=== PATIENT | male | born 1950 | race Caucasian/White ===

== ENCOUNTER → 2017-09-03 13:03 | Outpatient (CLI) | payer MEDICARE, OTHER, SELFPAY ==
[2017-09-03 14:15] LABS: PSA,Total- Diagnostic 0.42 ng/mL (0.0-4.0)
== END ==
PROVIDERS: Visit Provider Urology
DX: Z85.46 Personal history of malignant neoplasm of prostate (principal)
CPT/HCPCS: 36415; 84153

== ENCOUNTER 2017-09-04 12:57 | Emergency (ER) | payer MEDICARE, OTHER, SELFPAY ==
[2017-09-04 12:57] VITALS: BP 197/87; PULSE 69; RESP 12; TEMP 36.6; O2SAT 98; BMI 30.5
--- NOTE | 2017-09-04 13:49 | ED.VISSUMM ---
- ER Visit Summary Date of Service: 09/04/17 Chief Complaint: [Rash] History of Present Illness: The patient is a 67 M [who presents the emergency department with a diffuse pruritic rash. He was recently self diagnosed with bedbugs. He was having itchy small bites all over his body. He saw multiple bedbugs in his bed. He wrapped up everything and felt like he got rid of it however he continues to have itching and his rash around his ankles and legs back and abdomen have gotten worse. It is worse at night. No fevers or chills. No new medications. He did have some environmental exposures. There is no vesicular component.] Physical Examination: [] Blood pressure 197/87 WN WD NAD PERRL EOMI MMM NECK supple and nontender, no masses RRR no murmur rub or gallop, no peripheral edema, symmetric radial pulses CTAB no respiratory distress ABDOMEN is soft and nontender, normal bowel sounds, no distension, no rebound or guarding SKIN macular papular rash diffusely occasionally in a linear distribution no evidence of cellulitis. It is blanching. There is no purpura or petechia. Alert and Oriented x3, CN II-XII in tact, no motor or sensory deficits, gait normal No lymphadenopathy Test Results: [] Emergency Department Course and Treatment: [Patient was put on prednisone yesterday by his janitor supervisor. I will give him a prescription for permethrin cream. He was given precautions for which to return. I did advise that he take 50 of Benadryl at night to prevent the severe pruritus that he experiences and have a professional come clean his entire house.] Treatment Plan: [] Disposition: [Discharge] Impression: [Dermatitis, bedbugs versus scabies] This note was generated with [employer] dictation software. It may contain incorrect words, spelling, and punctuation that were not noted in review of the chart prior to signing ED Disposition - Plan for ED Patient: Chief Complaint: Itching Referrals: Care Physician,No Primary [Primary Care Provider] -
--- NOTE | 2017-09-04 13:52 | ED.DCSUM_ITS ---
- ER Visit Summary Date of Service: 09/04/17 Chief Complaint: [Rash] History of Present Illness: The patient is a 67 M [who presents the emergency department with a diffuse pruritic rash. He was recently self diagnosed with bedbugs. He was having itchy small bites all over his body. He saw multiple bedbugs in his bed. He wrapped up everything and felt like he got rid of it however he continues to have itching and his rash around his ankles and legs back and abdomen have gotten worse. It is worse at night. No fevers or chills. No new medications. He did have some environmental exposures. There is no vesicular component.] Physical Examination: [] Blood pressure 197/87 WN WD NAD PERRL EOMI MMM NECK supple and nontender, no masses RRR no murmur rub or gallop, no peripheral edema, symmetric radial pulses CTAB no respiratory distress ABDOMEN is soft and nontender, normal bowel sounds, no distension, no rebound or guarding SKIN macular papular rash diffusely occasionally in a linear distribution no evidence of cellulitis. It is blanching. There is no purpura or petechia. Alert and Oriented x3, CN II-XII in tact, no motor or sensory deficits, gait normal No lymphadenopathy Test Results: [] Emergency Department Course and Treatment: [Patient was put on prednisone yesterday by his zipper measurer. I will give him a prescription for permethrin cream. He was given precautions for which to return. I did advise that he take 50 of Benadryl at night to prevent the severe pruritus that he experiences and have a professional come clean his entire house.] Treatment Plan: [] Disposition: [Discharge] Impression: [Dermatitis, bedbugs versus scabies] This note was generated with [employer] dictation software. It may contain incorrect words, spelling, and punctuation that were not noted in review of the chart prior to signing ED Disposition - Plan for ED Patient: Chief Complaint: Itching Referrals: Care Physician,No Primary [Primary Care Provider] -
--- NOTE | 2017-09-04 14:02 | ED.DEP ---
ED Disposition - Plan for ED Patient: Chief Complaint: Itching Instructions: Scabies, ED Bites Bed Bug Prescriptions: Permethrin 5% [Permethrin] 1 packet TP DAILY 7 Days cream..g. Referrals: Eliot Rivera MD [STAFF PHYSICIAN] - 5-7 Days
== END 2017-09-04 14:10 | disposition home or self-care (01) ==
PROVIDERS: Emergency Provider Emergency Medicine
DX: L30.9 Dermatitis, unspecified (principal); Z79.82 Long term (current) use of aspirin; Z79.899 Other long term (current) drug therapy
CPT/HCPCS: 99282

== ENCOUNTER → 2018-03-10 12:13 | Outpatient (CLI) | payer MEDICARE, OTHER, SELFPAY ==
[2018-03-10 11:00] VITALS: BMI 31.6
[2018-03-10 13:13] LABS: AST(SGOT) 21 U/L (15-37); Alanine Aminotransfer ALT/SGPT 27 U/L (16-61); Alkaline Phosphatase 101 U/L (45-117); Bilirubin, Direct 0.21 mg/dL (0.00-0.30); Cholesterol 152 mg/dL (200); Globulin 3.5 g/dL (2.2-4.2); High Density Lipoprotein 57 mg/dL; Protein, Total 7.5 g/dL (6.4-8.2); Triglycerides 79 mg/dL; Very Low Density Lipoprotein 16 mg/dL (5-40)
== END ==
PROVIDERS: Referring Provider Internal Medicine Cardiovascular Disease; Visit Provider Internal Medicine Cardiovascular Disease
DX: E78.5 Hyperlipidemia, unspecified (principal)
CPT/HCPCS: 36415; 80061; 80076

== ENCOUNTER → 2018-03-25 06:40 | Outpatient (CLI) | payer MEDICARE, OTHER, SELFPAY ==
[2018-03-10 11:00] VITALS: BMI 31.6
--- NOTE | 2018-03-25 06:42 | ECHOD_ITS ---
Reason For Study: DYSPNEA/SOB Procedure This was a 2D Doppler, Color Flow transthoracic echocardiogram. The study was technically difficult. Exam performed in department. Left Ventricle Normal LV size. Left ventricular systolic function is normal. The estimated ejection fraction is 60 %. Post operative septal motion. No evidence for diastolic dysfunction. No regional wall motion abnormalities noted. Right Ventricle Normal RV size. Normal systolic function. Atria Normal left atrium. Normal right atrium. No doppler evidence for ASD. Mitral Valve There is mild mitral annular calcification. Extension of the mitral annular calcification onto the posterior mitral valve leaflet. Trivial mitral valve insufficiency. Tricuspid Valve Normal tricuspid valve. Trivial tricuspid valve insufficiency. Right ventricular systolic pressure estimated to be 28 mmHg. Aortic Valve Trisinus/trileaflet aortic valve. Mild focal aortic valve calcification. Pulmonic Valve The pulmonic valve is not well visualized. Trivial pulmonic valve insufficiency. Great Vessels Mildly dilated aortic root. Calcified aortic root. Pericardium/Pleural No pericardial effusion. MMode/2D Measurements & Calculations LVIDd: 5.2 cm IVSd: 1.2 cm Ao root diam: 4.1 cm LVIDs: 3.5 cm LVPWd: 1.4 cm RVDd: 3.5 cm FS: 32.5 % LAV(MOD-bp): 42.8 ml LA A4 area: 14.0 cm2 LA dimension(2D): 4.0 cm LAV(MOD-bp) Indexed: 21.4 ml/m2 LAV(MOD-sp2): 43.5 ml LAV(MOD-sp4): 36.1 ml RA A4 area: 13.5 cm2 Doppler Measurements & Calculations MV E max john: 76.1 cm/sec Lat Peak E' John: 7.4 cm/sec Med Peak E' John: 5.5 cm/sec MV A max john: 104.1 cm/sec E/E' lat: 10.3 E/E' med: 13.9 MV E/A: 0.73 Ao V2 max: 124.4 cm/sec LV V1 max: 112.4 cm/sec TR max john: 249.7 cm/sec Ao max P.2 mmHg LV V1 max P.0 mmHg TR max P.2 mmHg Interpretation Summary The study was technically difficult. Left ventricular systolic function is normal. The estimated ejection fraction is 60 %. Post operative septal motion. There is mild mitral annular calcification. Extension of the mitral annular calcification onto the posterior mitral valve leaflet. Trivial mitral valve insufficiency. Trivial tricuspid valve insufficiency. Mild focal aortic valve calcification. Trivial pulmonic valve insufficiency. Mildly dilated aortic root. Calcified aortic root. Right ventricular systolic pressure estimated to be 28 mmHg. No evidence for diastolic dysfunction. 2D echocardiographic images potentially compatible with an hepatic cyst. Consider further evaluation with right upper quadrant ultrasound if clinically appropriate. Ordering Physician: Orestes Roa Referring Physician: NO PCP Performed By: Maye Jordan, GALINA, RVT
--- NOTE | 2018-03-25 09:10 | STRESSREP ---
Stress Test Report Date: 03/25/2018 Procedure: Exercise tolerance test/imaging study Indications: Shortness of breath/dyspnea; chest discomfort; CAD; status post PCI; status post CABG Consent: Per the patient Procedure: The patient exercised on a Victor Manuel protocol for 10 minutes completing Stage III and 1 minute of Stage IV achieving a peak heart rate of 150 bpm (98 % predicted maximal heart rate) with a peak blood pressure 178/100 mmHg and a peak MET capacity of 11 METs. The baseline ECG demonstrated normal sinus rhythm . The peak exercise ECG demonstrated no obvious ECG changes . There was a rare PVC during recovery . The functional capacity was considered good . There was no complaint of chest discomfort during exercise or recovery. The examination was discontinued secondary to dyspnea . Impression: 1. Technically adequate (percent predicted maximal heart rate greater than 85%) exercise tolerance test 2. Peak exercise ECG with no obvious ECG changes 3. There was a rare PVC during recovery 4. Nuclear images pending Myocardial perfusion imaging study: Technique: The patient was injected with 11.9 mCi of technetium 99m Cardiolite and subsequently rest SPECT Cardiolite nuclear imaging was obtained in the horizontal long, vertical long, and short axis views. The patient exercised on a Victor Manuel protocol for 10 minutes completing Stage 3 and 1 minute of Stage IV achieving a peak heart rate of 150 bpm (98 % predicted maximal heart rate) with a peak blood pressure 178/100 mmHg and a peak MET capacity of 11 METs. The patient was injected with 33.2 mCi of technetium 99m Cardiolite and subsequently stress SPECT Cardiolite nuclear imaging was obtained in the horizontal long, vertical long, and short axis views. A gated Cardiolite study at peak stress was obtained. Interpretation: Rest and stress SPECT Cardiolite nuclear imaging status post realignment, normalization, and attenuation correction, demonstrates the appearance of relative uniform tracer uptake and myocardial perfusion appearing within normal limits. There is end systolic thickening and brightening. The gated Cardiolite study demonstrates myocardial thickening and inward wall motion. The reported LVEF is 70 %. Impression: 1. Rest and stress SPECT Cardiolite nuclear imaging demonstrate relative uniform tracer uptake and myocardial perfusion appearing within normal limits. 2. The gated Cardiolite study reports an LVEF of 70 %. This note was generated with [employer] software. It may contain incorrect words, spelling, and punctuation that were not noted in checking the note before signing.
--- NOTE | 2018-03-25 09:13 | STRESSREP_ITS ---
Stress Test Report Date: 03/25/2018 Procedure: Exercise tolerance test/imaging study Indications: Shortness of breath/dyspnea; chest discomfort; CAD; status post PC I; status post CABG Consent: Per the patient Procedure: The patient exercised on a Victor Manuel protocol for 10 minutes completing Stage III and 1 minute of Stage IV achieving a peak heart rate of 150 bpm (98 % predicted maximal heart rate) with a peak blood pressure 178/100 mmHg and a peak MET capacity of 11 METs. The baseline ECG demonstrated normal sinus rhythm . The peak exercise ECG demon strated no obvious ECG changes . There was a rare PVC during recovery . The functional capacity was considered good . There was no complaint of chest discomfort during exercise or recovery. The examination was discontinued secondary to dyspnea . Impression: 1. Technically adequate (percent predicted maximal heart rate greater than 85%) exercise tolerance test 2. Peak exercise ECG with no obvious ECG changes 3. There was a rare PVC during recovery 4. Nuclear images pending Myocardial perfusion imaging study: Technique: The patient was injected with 11.9 mCi of technetium 99m Cardiolite and subsequently rest SPECT Cardiolite nuclear imaging was obtained in the horizontal long, vertical long, and short axis views. The patient exercised on a Victor Manuel protocol for 10 minutes completing Stage 3 and 1 minute of Stage IV achieving a peak heart rate of 150 bpm (98 % predicted maximal heart rate) with a peak blood pressure 178/100 mmHg and a peak MET capacity of 11 METs. The p atient was injected with 33.2 mCi of technetium 99m Cardiolite and subsequently stress SPECT Cardiolite nuclear imaging was obtained in the horizontal long, vertical long, and short axis views. A gated Cardiolite study at peak stress was obtained. Interpretation: Rest and stress SPECT Cardiolite nuclear imaging status post realignment, normalization, and attenuation correction, demonstrates the appearance of relative uniform tracer uptake and myocardial perfusion appearing within normal limits. There is end systolic thickening and brightening. The gated Cardiolite study demonstrates myocardial thickening and inward wall motion. The reported LVEF is 70 %. Impression: 1. Rest and stress SPECT Cardiolite nuclear imaging demonstrate relative uniform tracer uptake and myocardial perfusion appearing within normal limits. 2. The gated Cardiolite study reports an LVEF of 70 %. This note was generated with [employer] software. It may contain incorrect words, spelling, and punctuation that were not noted in checking the note before signing.
== END ==
PROVIDERS: Referring Provider Internal Medicine Cardiovascular Disease; Visit Provider Internal Medicine Cardiovascular Disease
DX: I25.10 Atherosclerotic heart disease of native coronary artery without angina pectoris (principal); R06.02 Shortness of breath; R06.00 Dyspnea, unspecified; I25.2 Old myocardial infarction; E78.5 Hyperlipidemia, unspecified
CPT/HCPCS: 78452; 93017; 93306; A9500; A4216

== ENCOUNTER → 2018-08-30 | Outpatient (CLI) | payer MEDICARE, OTHER, SELFPAY ==
[2018-03-10 11:00] VITALS: BMI 31.6
[2018-08-30 18:07] LABS: PSA,Total- Diagnostic 0.44 ng/mL (0.0-4.0)
== END | disposition home or self-care (01) ==
LOC: LAB 15:36
PROVIDERS: Referring Provider Urology; Visit Provider Urology
DX: C61 Malignant neoplasm of prostate (principal)
CPT/HCPCS: 36415; 84153

== ENCOUNTER → 2018-09-07 | Outpatient (CLI) | payer MEDICARE, OTHER, SELFPAY ==
[2018-09-07 09:52] VITALS: BMI 31.8
[2018-09-07 11:54] LABS: AST(SGOT) 28 U/L (15-37); Alanine Aminotransfer ALT/SGPT 35 U/L (16-61); Albumin, Serum 3.7 g/dL (3.2-5.0); Alkaline Phosphatase 103 U/L (45-117); Bilirubin, Direct 0.14 mg/dL (0.00-0.30); Cholesterol 148 mg/dL (200); Globulin 3.2 g/dL (2.2-4.2); High Density Lipoprotein 57 mg/dL; Protein, Total 6.9 g/dL (6.4-8.2); Triglycerides 83 mg/dL; Very Low Density Lipoprotein 17 mg/dL (5-40)
== END | disposition home or self-care (01) ==
LOC: LAB 10:41
PROVIDERS: Referring Provider Internal Medicine Cardiovascular Disease; Visit Provider Internal Medicine Cardiovascular Disease
DX: E78.5 Hyperlipidemia, unspecified (principal)
CPT/HCPCS: 36415; 80061; 80076

== ENCOUNTER 2019-04-07 17:47 | Emergency (ER) | payer MEDICARE, OTHER, SELFPAY ==
[2018-09-07 09:52] VITALS: BMI 31.8
[2019-04-07 17:48] VITALS: BP 140/104; PULSE 78; RESP 16; TEMP 36.5; O2SAT 97; BMI 32.1
--- NOTE | 2019-04-07 18:01 | ED.VISSUMM ---
- ER Visit Summary Date of Service: 04/07/19 Chief Complaint: Right lower leg redness and swelling History of Present Illness: The patient is a 69 M who has redness of his right lower leg. He has associated swelling with this. He noticed it a couple of days ago. He states that he has been scratching that area. He denies any history of DVTs in the past. Nothing makes his symptoms better or worse. He denies any fevers. Physical Examination: Right lower leg exam reveals tenderness in the anterior portion but there is no calf tenderness. There is anterior swelling but no fusiform swelling. There is mild erythema noted to the anterior leg as well there are excoriation seen. He has a 2+ DP pulse. Test Results: None performed Emergency Department Course and Treatment: I feel that this is likely cellulitis. He has no calf pain. The swelling is localized to the area of erythema. I do not suspect DVT. I will treat him with Keflex. He will call his primary care physician for follow-up. Treatment Plan: [] Disposition: Discharge Impression: Right lower leg cellulitis This note was generated with [employer] dictation software. It may contain incorrect words, spelling, and punctuation that were not noted in review of the chart prior to signing ED Disposition - Plan for ED Patient: Referrals: Care Physician,No Primary [Primary Care Provider] -
--- NOTE | 2019-04-07 18:03 | ED.DEP ---
ED Disposition - Plan for ED Patient: Disposition: Home or Assisted Living Instructions: Cellulitis Prescriptions: Cephalexin [Keflex] 500 mg PO Q6 #28 cap Transmission Status: Pending to [facility] Referrals: Care Physician,No Primary [Primary Care Provider] - Caitlyn Guidry MD [STAFF PHYSICIAN] -
[2019-04-07 18:04] VITALS: BP 173/98; PULSE 77; RESP 16; O2SAT 96
[2019-04-07] MEDS: Cephalexin 250 MG Capsule 500 MG PO (18:08)
[2019-04-07 18:17] VITALS: BP 173/98; PULSE 77; RESP 16; O2SAT 96
== END 2019-04-07 18:19 | disposition home or self-care (01) ==
PROVIDERS: Emergency Provider Emergency Medicine
DX: L03.115 Cellulitis of right lower limb (principal); I25.10 Atherosclerotic heart disease of native coronary artery without angina pectoris; I25.2 Old myocardial infarction; I10 Essential (primary) hypertension
CPT/HCPCS: 99283

== ENCOUNTER → 2019-07-28 | Outpatient (CLI) | payer MEDICARE, OTHER, SELFPAY ==
[2019-07-21 08:50] VITALS: BMI 32.1
[2019-07-28 10:03] LABS: AST(SGOT) 29 U/L (15-37); Alanine Aminotransfer ALT/SGPT 28 U/L (16-61); Albumin, Serum 3.9 g/dL (3.2-5.0); Alkaline Phosphatase 93 U/L (45-117); Bilirubin, Direct 0.19 mg/dL (0.00-0.30); Cholesterol 118 mg/dL (200); Globulin 3.2 g/dL (2.2-4.2); High Density Lipoprotein 52 mg/dL; Protein, Total 7.1 g/dL (6.4-8.2); Triglycerides 68 mg/dL; Very Low Density Lipoprotein 14 mg/dL (5-40)
== END | disposition home or self-care (01) ==
LOC: LAB 08:20
PROVIDERS: Referring Provider Internal Medicine Cardiovascular Disease; Visit Provider Internal Medicine Cardiovascular Disease
DX: E78.00 Pure hypercholesterolemia, unspecified (principal)
CPT/HCPCS: 36415; 80061; 80076

== ENCOUNTER → 2019-09-15 | Outpatient (CLI) | payer MEDICARE, OTHER, SELFPAY ==
[2019-07-21 08:50] VITALS: BMI 32.1
[2019-09-15 13:12] LABS: PSA,Total- Diagnostic 0.36 ng/mL (0.0-4.0)
== END | disposition home or self-care (01) ==
LOC: LAB 12:14
PROVIDERS: Referring Provider Urology; Visit Provider Urology
DX: C61 Malignant neoplasm of prostate (principal)
CPT/HCPCS: 36415; 84153

== ENCOUNTER → 2020-05-20 09:43 | Outpatient (CLI) | payer MEDICARE, OTHER, SELFPAY ==
[2019-07-21 08:50] VITALS: BMI 32.1
--- NOTE | 2020-05-20 09:50 | CDU_ITS ---
Reason For Study: Dizziness Rt. Velocities/BP Lt. Velocities/BP Prox CCA 89/15 cm/sec. Prox CCA 109/24 cm/sec. Mid CCA 96/15 cm/sec. Mid CCA 100/22 cm/sec. Dist CCA 76/20 cm/sec. Dist CCA 100/22 cm/sec. Prox ICA 86/19 cm/sec. Prox ICA 137/23 cm/sec. Mid ICA 83/20 cm/sec. Mid ICA 77/24 cm/sec. Dist ICA 111/33 cm/sec. Dist ICA 105/40 cm/sec. Rt. ICA/CCA = 1.2. Lt. ICA/CCA = 1.37. Prox ECA 312/26 cm/sec. Prox ECA 183/17 cm/sec. Rt. Vert. 94/17 cm/sec. Right Extracranial There is heterogeneous, irregular atherosclerotic plaque noted in the right common carotid artery. There is heterogeneous, irregular atherosclerotic plaque noted in the right internal carotid artery. There is heterogeneous, irregular atherosclerotic plaque noted in the right external carotid artery. Antegrade flow is noted in the right vertebral artery. Left Extracranial There is heterogeneous, irregular atherosclerotic plaque noted in the left common carotid artery. There is heterogeneous, irregular atherosclerotic plaque noted in the left internal carotid artery. There is heterogeneous, irregular atherosclerotic plaque noted in the left external carotid artery. Bi-directional flow noted Lt Vert A. Procedure Carotid Duplex 43545. Exam performed in department. Interpretation Summary Irregular calcific plaque of the proximal right internal carotid artery with less than 50% stenosis. Greater than 50% stenosis right external carotid artery Irregular calcific plaque in the proximal left internal and external carotid arteries with 50 to 69% stenosis left proximal internal carotid Less than 50% stenosis left external carotid artery Patent and antegrade flow right vertebral Bidirectional flow left vertebral left vertebral suspicious for proximal left subclavian stenosis. Clinical correlation would be appropriate. Ordering Physician: Orestes Roa Referring Physician: Orestes Roa Performed By: Jie Trujillo, GALINA, RVT
== END ==
PROVIDERS: Referring Provider Internal Medicine Cardiovascular Disease; Visit Provider Internal Medicine Cardiovascular Disease
DX: I65.23 Occlusion and stenosis of bilateral carotid arteries (principal); R42 Dizziness and giddiness; I73.9 Peripheral vascular disease, unspecified; I25.10 Atherosclerotic heart disease of native coronary artery without angina pectoris; E78.5 Hyperlipidemia, unspecified
CPT/HCPCS: 93880

== ENCOUNTER → 2020-06-03 14:20 | Outpatient (CLI) | payer MEDICARE, OTHER, SELFPAY ==
[2020-05-29 15:23] VITALS: BMI 33.7
== END ==
PROVIDERS: Referring Provider Otolaryngology; Visit Provider Otolaryngology
DX: U07.1 COVID-19 (principal)
CPT/HCPCS: 87635; C9803; U0002

== ENCOUNTER → 2020-07-16 16:08 | Outpatient (CLI) | payer MEDICARE, OTHER, SELFPAY ==
[2020-05-29 15:23] VITALS: BMI 33.7
--- NOTE | 2020-07-16 16:45 | MRI_ITS ---
STUDY: MRI BRAIN WITH AND WITHOUT CONTRAST (ATTENTION INTERNAL AUDITORY CANALS - I.A.C.''s) REASON FOR EXAM: Male, 70 years old. Sudden hearing loss left ear TECHNIQUE: Standardized multiplanar fat and water weighted pulse sequences were obtained. 18 IV DOTAREM was administered for the contrast portion of the examination. COMPARISON: None. FINDINGS: Normal bilateral temporal bones. There is enhancing left intracanalicular lesion measuring approximately 10.1 x 7.2 mm extending into the cerebellopontine angle cistern consistent with acoustic neuroma.. Normal bilateral cochlea, vestibules and semicircular canals. Mild atrophy and periventricular white matter ischemic changes without mass effect or restricted diffusion.. Normal bilateral basal ganglia. Normal thalami. Normal flow voids within the major intracranial circulation suggesting patency by spin echo criteria. Normal venous enhancement. There is no enhancing intra-axial or extra-axial abnormality. There is no extra-axial fluid accumulation. Normal sella turcica, pituitary gland, infundibular stalk, optic chiasm and hypothalamus. Normal tectal plate and pineal gland. Normal midbrain, shweta and medulla. Normal cerebellum. Normal basal cisterns. No demonstrated orbital abnormality, within the constraints of a routine brain study. Normal visualized paranasal sinuses. Normal calvarium and skull base. Normal visualized soft tissue structures. Normal visualized upper cervical spine. 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
[2020-07-17 11:36] LABS: EGFR FINGERSTICK > 60.0000 mL/min (>60)
== END ==
PROVIDERS: Referring Provider Otolaryngology; Visit Provider Otolaryngology
DX: H91.22 Sudden idiopathic hearing loss, left ear (principal); H93.19 Tinnitus, unspecified ear
CPT/HCPCS: 70553; A9575

== ENCOUNTER 2021-06-09 08:37 | Outpatient (CLI) | payer MEDICARE, OTHER, SELFPAY ==
[2021-06-09 08:54] VITALS: BP 141/72; PULSE 52; RESP 18; TEMP 36.1; O2SAT 97; BMI 30.9
== END 2021-06-09 23:59 | disposition home or self-care (01) ==
PROVIDERS: Referring Provider Internal Medicine Hematology & Oncology; Visit Provider Internal Medicine Hematology & Oncology
DX: C20 Malignant neoplasm of rectum (principal)
CPT/HCPCS: 36569

== ENCOUNTER → 2022-01-16 | Outpatient (CLI) | payer MEDICARE, OTHER, SELFPAY ==
--- NOTE | 2022-01-16 12:59 | ECHOD_ITS ---
Reason For Study: DILATED AORTIC ROOT Procedure This was a 2D Doppler, Color Flow transthoracic echocardiogram. Exam performed in department. Left Ventricle Left ventricular systolic function is normal. The estimated ejection fraction is 65 %. Post operative septal motion. Diastolic function is indeterminate. No regional wall motion abnormalities noted. Right Ventricle Normal RV size. Normal systolic function. Atria The left atrium is mildly enlarged. Normal right atrium. No doppler evidence for ASD. Mitral Valve There is moderate mitral annular calcification. Extension of the mitral annular calcification onto the base of the posterior mitral valve leaflet. Trivial mitral valve insufficiency. Tricuspid Valve Normal tricuspid valve. Mild eccentric tricuspid valve insufficiency. Right ventricular systolic pressure estimated to be 29 mmHg. Aortic Valve Trisinus/trileaflet aortic valve. Mild focal aortic valve calcification. Pulmonic Valve The pulmonic valve is not well visualized. Trivial pulmonic valve insufficiency. Great Vessels Mildly dilated aortic root. Calcified aortic root. Pericardium/Pleural No pericardial effusion. MMode/2D Measurements & Calculations RVDd: 5.1 cm LVOT diam: 2.2 cm Ao root diam: 4.0 cm LVOT area: 3.9 cm2 LAV(MOD-sp4): 57.6 ml SV(MOD-sp4): 52.7 ml LVAd ap4: 28.6 cm2 LVLd ap4: 8.1 cm EDV(MOD-sp4): 80.8 ml EDV(sp4-el): 85.8 ml LVAs ap4: 14.6 cm2 LVLs ap4: 6.3 cm ESV(MOD-sp4): 28.1 ml ESV(sp4-el): 28.6 ml EF(MOD-sp4): 65.2 % EF(sp4-el): 66.7 % SV(sp4-el): 57.2 ml LA A4 area: 19.2 cm2 LA dimension(2D): 4.8 cm RA A4 area: 19.2 cm2 Time Measurements MV dec time: 0.30 sec Doppler Measurements & Calculations MV E max john: 116.9 cm/sec Lat Peak E' John: 6.3 cm/sec Med Peak E' John: 5.4 cm/sec MV A max john: 102.3 cm/sec E/E' lat: 18.7 E/E' med: 21.6 MV E/A: 1.1 MV V2 max: 133.5 cm/sec MV dec slope: 393.1 cm/sec2 Ao V2 max: 129.8 cm/sec MV max P.1 mmHg Ao max P.7 mmHg MV V2 mean: 56.6 cm/sec Ao V2 mean: 89.8 cm/sec MV mean P.9 mmHg Ao mean P.7 mmHg MV V2 VTI: 54.9 cm Ao V2 VTI: 37.8 cm MVA(VTI): 2.2 cm2 DEONTE(I,D): 3.1 cm2 DEONTE(V,D): 3.4 cm2 LV V1 max: 113.5 cm/sec SV(LVOT): 118.6 ml PA V2 max: 90.6 cm/sec LV V1 max P.2 mmHg PA V2 mean: 64.2 cm/sec LV V1 mean P.8 mmHg LV V1 mean: 77.9 cm/sec LV V1 VTI: 30.7 cm TR max john: 256.1 cm/sec TR max P.2 mmHg ECHO/Echo Complete Interpretation Summary Left ventricular systolic function is normal. The estimated ejection fraction is 65 %. Post operative septal motion. The left atrium is mildly enlarged. There is moderate mitral annular calcification. Extension of the mitral annular calcification onto the base of the posterior mi tral valve leaflet. Trivial mitral valve insufficiency. Mild eccentric tricuspid valve insufficiency. Mild focal aortic valve calcification. Trivial pulmonic valve insufficiency. Mildly dilated aortic root. Calcified aortic root. Right ventricular systolic pressure estimated to be 29 mmHg. Diastolic function is indeterminate. 2D echocardiographic images potentially compatible with an hepatic cyst. Consid er further evaluation with right upper quadrant ultrasound if clinically appropriate. Ordering Physician: Bhavna Deutsch Referring Physician: Bhavna Deutsch Performed By: Kamilla Suarez RCS
== END | disposition home or self-care (01) ==
LOC: CVS 12:57
PROVIDERS: PCP Internal Medicine; Referring Provider Physician Assistant Medical; Visit Provider Physician Assistant Medical
DX: I25.10 Atherosclerotic heart disease of native coronary artery without angina pectoris (principal)
CPT/HCPCS: 93306

== ENCOUNTER 2022-02-01 13:44 | Emergency (ER) | payer MEDICARE, OTHER, SELFPAY ==
[2022-02-01] VITALS (13 sets, daily range): BP systolic 46–118; BP diastolic 31–87; PULSE 86–109; RESP 14–94; TEMP 33.7–36.9; O2SAT 92–100; BMI 32.3
--- NOTE | 2022-02-01 13:48 | RAD_ITS ---
INDICATION: fever EXAMINATION/TECHNIQUE: X-RAY - XR Chest 1 View COMPARISON: CT dated of the abdomen and pelvis dated February 01, 2022 FINDINGS: LINES/DEVICES: None. LUNGS: No consolidation, edema or effusion. No pneumothorax. MEDIASTINUM AND CARDIOVASCULAR STRUCTURES: There are sternotomy wires in place. Cardiac silhouette not enlarged. Central airways and mediastinal contour are unremarkable. BONES AND SOFT TISSUES: There is subcutaneous air within the soft tissues lateral to the visualized upper abdomen. RAD/Chest 1 View (Portable) IMPRESSION: No acute cardiopulmonary process. Indeterminate subcutaneous air adjacent to the visualized abdomen, likely secondary to recent surgical intervention. Electronically Signed: Martha Guevara MD at 14:24 EST ,
--- NOTE | 2022-02-01 13:48 | CT_ITS ---
INDICATION: History of rectal cancer with colectomy January 27, 2022. Severe Abdominal pain status post Colostomy EXAMINATION: CT ABDOMEN AND PELVIS WITH CONTRAST - CT Abdomen And Pelvis W/ Contrast Injection TECHNIQUE: Helically acquired images were obtained of the abdomen and pelvis following IV contrast. A radiation dose optimization technique was used for this scan. IV Contrast dosage and agent: 100 cc of Isovue-[id number] Oral contrast: None. COMPARISON: January 08, 2017 FINDINGS: LOWER CHEST: Lung bases are clear. There are coronary artery calcifications. There is intraperitoneal free air. There is free fluid within the right upper quadrant and posterior to the proximal gastric fundus. There are associated high attenuation serpiginous foci within the fluid within the left upper quadrant posterior to the stomach. There is high attenuation fluid within the mesentery left of midline and within the omentum. There is high attenuation free fluid within the pelvis most pronounced left of midline. LIVER: There are stable well circumscribed low attenuation round foci throughout the liver. GALLBLADDER AND BILIARY TREE: No calcified gallstones. No gallbladder distension or wall edema. No intra- or extrahepatic biliary ductal dilation. PANCREAS: No focal cystic or solid mass. SPLEEN: Normal size without focal cystic or solid mass. ADRENAL GLANDS: No nodules. KIDNEYS AND URETERS: Normal renal size and position. No hydronephrosis. BOWEL: No evidence of acute appendicitis. No stomach or bowel distension. There are postsurgical changes within the rectum associated with a colostomy within the right lower quadrant. VESSELS: Aorta is non-dilated. There are peripheral calcifications of the abdominal aorta consistent with atherosclerosis. URINARY BLADDER: Unremarkable. REPRODUCTIVE ORGANS: No pelvic masses. ABDOMINAL WALL: here is extensive subcutaneous air along the lateral abdominal shah and within the anterior and lateral pelvic shah. The subcutaneous air extends into the inguinal region and scrotum. BONES: There are degenerative changes of the lumbar spine. CT/Abdomen/Pelvis W IV Cont ONLY IMPRESSION: Hemoperitoneum with findings consistent with an active bleed within the left upper quadrant posterior to the gastric fundus; cannot entirely exclude a gastric perforation Intraperitoneal free air likely secondary to recent surgical intervention. Ill-defined opacities within the omentum and peritoneum may be secondary to the hemoperitoneum however cannot entirely exclude a neoplastic process. Subcutaneous emphysema throughout the abdomen and pelvis as well as within the scrotum; may be partially secondary to recent surgical intervention however cannot exclude a gas producing organism. Minimal intraperitoneal free air likely secondary to recent surgical intervention. Atherosclerosis. N.B. : The above Results were Read Back by Martha Guevara MD to Eriberto Salazar MD, and understanding confirmed on 02/01/2022 14:50:43 (ET). Electronically Signed: Martha Guevara MD at 14:51 EST ,
--- NOTE | 2022-02-01 13:51 | EDS_ITS ---
HPI <ALTAGRACIA Torres - Last Filed: 02/01/22 15:02> History of Present Illness Chief Complaint: Abd Pain Narrative Narrative: 71-year-old male with history of CAD, hypertension, history of triple bypass, history of rectal cancer who recently received a colostomy 1 week ago at the [facility] presents to the emergency department with severe abdominal pain. Patient was brought in by EMS, patient had poor color, patient was diaphoretic and screaming on pain that his belly is hurting. He denies any nausea or vomiting. Denies any fever or chills. Patient states it is difficult to catch his breath. [facility] <ALTAGRACIA Torres - Last Filed: 02/01/22 15:02> [facility] Medical History (Updated 02/01/22 @ 15:[address] Eriberto Salazar, ) Atherosclerotic heart disease of [place] coronary artery without angina pectoris Bilateral carotid artery stenosis CAD (coronary artery disease) Dilated aortic root Dyslipidemia Essential hypertension GERD (gastroesophageal reflux disease) HTN (hypertension) Hypoacusis Meniere's disease Old myocardial infarction Peripheral vascular disease Premature ventricular contraction Presence of stent in coronary artery (~12/22/16) Subclavian artery stenosis, left 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 Home Medications multivitamin 1 ea PO DAILY vitamin 10/14/16 [History Last Taken Unknown] nitroglycerin 0.4 mg sublingual tablet 0.4 mg sublingual PRN PRN Cardiac/Chest Pain 12/21/16 [History Last Taken Unknown] coenzyme Q10 50 mg capsule 100 mg PO DAILY vitamin 03/04/18 [History Last Taken Unknown] cholecalciferol (vitamin D3) 50 mcg (2,000 unit) capsule 4,000 unit PO DAILY PRN vitamin 07/21/19 [History Last Taken Unknown] lactobacillus combination no.9 4 billion cell capsule (Adult 50 Plus Probiotic) 4,000 mmu cells PO DAILY 07/21/19 [History Last Taken Unknown] atorvastatin 40 mg tablet 40 mg PO DAILY #90 tabs 05/30/21 [Rx Last Taken Unknown] clopidogrel 75 mg tablet 75 mg PO DAILY stents #90 tabs 05/30/21 [Rx Last Taken Unknown] metoprolol tartrate 25 mg tablet 25 mg PO BID heart and BP #180 tabs 05/30/21 [Rx Last Taken Unknown] Allergy/AdvReac Type Severity Reaction Status Date / Time clindamycin Allergy PT UNABLE Verified 01/09/22 10:00 TO RESPOND-NEEDS F/U codeine AdvReac Upset Verified 01/09/22 10:00 Stomach Family History Father CAD (coronary artery disease) Myocardial infarction, Onset Age: 45 Mother Carotid artery stenosis Surgical History History of tonsillectomy History of transurethral resection of prostate (~09/2016) Presence of coronary angioplasty implant and graft (~12/22/16) S/P CABG (coronary artery bypass graft) (~09/16/98) S/P PTCA (percutaneous transluminal coronary angioplasty) (~12/22/16) Social History Smoking Status: Former smoker how long ago did patient quit smokin alcohol intake: current details: occasional ROS <ALTAGRACIA Torres - Last Filed: 02/01/22 15:02> ROS ED ROS Narrative Constitutional: Negative for fever, chills, weight loss, weakness Eyes: Negative for vision loss, vision change, double vision ENT: Negative for any sore throat, ear pain, congestion Cardiovascular: Negative for any chest pain, tightness, palpitations Respiratory: Negative for any cough, sputum production, hemoptysis, dyspnea on exertion, orthopnea. Positive for dyspnea Gastrointestinal: Negative for any nausea, vomiting, diarrhea, constipation, blood in stool, blood in vomit. Positive for severe abdominal pain : Negative for any urinary frequency, dysuria, retention, blood in urine Muscle skeletal: Negative for any muscle joint pain, stiffness, myalgias, arthralgias, neck pain, back pain Neurological: Negative for any headache, syncope, numbness or tingling, dizziness Skin: Negative for any rashes, lumps, itching, abrasions, lacerations Psychiatric: Negative for any depression, anxiety, stress, suicidal ideation, homicidal ideation Hematologic: Negative for any easy bruising, excessive bruising, easy bleeding Allergies: Negative for any eczema, hives, rash EXAM <ALTAGRACIA Torres - Last Filed: 02/01/22 15:02> Physical Exam Narrative Exam Narrative: Vital signs reviewed. Patient on initial exam looks ill. Patient has poor color, patient has mottling to his lower extremities. Patient is diaphoretic, cool to the touch. Patient is alert and orient x4, stating he has severe abdominal pain. HEET: Head normocephalic atraumatic, TMs clear bilaterally. Posterior pharynx is clear, dry mucous membranes. Nares clear bilaterally. Neck: Supple with no lymphadenopathy or tenderness. No signs of meningismus, negative jolt sign. Cardiac: Tachycardic rate with a systolic murmur, no gallops or rubs, equal peripheral pulses bilaterally. Respiratory: Lungs clear to auscultation bilaterally. No chest tenderness. Abdomen: . No abdominal bruit or pulsatile masses. No hepatosplenomegaly. Patient does have a colostomy that is draining dark stool, patient's belly is distended, firm, there is crepitus felt upon palpation. Difficult to assess bowel sounds. Extremities: No peripheral edema, no signs of gross trauma or deformity. Active full range of motion of all extremities. Neuro: Cranial nerves II through XII intact, no focal neurological deficits. Skin: Clean dry and intact with no rash, purpura, petechiae, vesicles or pustules. Backs/flank: No CVA tenderness, no midline spinal tenderness, no deformity. Psych: Normal mood and affect. No SI, HI or acute psychosis. Const Vital Signs: 02/01/22 13:45 02/01/22 14:12 02/01/22 14:12 Temperature 92.7 F L 98.2 F Temperature Source Temporal Core Pulse Rate 109 H 93 106 H Respiratory Rate 24 H 16 14 Blood Pressure 115/87 H 88/73 L 81/50 L Blood Pressure Mean 96 78 60 Pulse Ox 100 94 98 Oxygen Delivery Method Nasal Cannula Nasal Cannula Nasal Cannula Oxygen Flow Rate (L/min) 3 2 2 02/01/22 14:38 02/01/22 15:01 02/01/22 15:15 Temperature 98.4 F 98.0 F 97.6 F L Temperature Source Core Core Core Pulse Rate 95 95 99 Respiratory Rate 29 H 94 H 18 Blood Pressure 77/55 L 110/80 89/62 L Blood Pressure Mean 62 90 71 Pulse Ox 94 94 94 Oxygen Delivery Method Nasal Cannula Nasal Cannula Nasal Cannula Oxygen Flow Rate (L/min) 2 2 2 <Dr. Eriberto Salazar DO - Last Filed: 02/01/22 15:18> Physical Exam Const Vital Signs: 02/01/22 13:45 02/01/22 14:12 02/01/22 14:12 Temperature 92.7 F L 98.2 F Temperature Source Temporal Core Pulse Rate 109 H 93 106 H Respiratory Rate 24 H 16 14 Blood Pressure 115/87 H 88/73 L 81/50 L Blood Pressure Mean 96 78 60 Pulse Ox 100 94 98 Oxygen Delivery Method Nasal Cannula Nasal Cannula Nasal Cannula Oxygen Flow Rate (L/min) 3 2 2 02/01/22 14:38 02/01/22 15:01 02/01/22 15:15 Temperature 98.4 F 98.0 F 97.6 F L Temperature Source Core Core Core Pulse Rate 95 95 99 Respiratory Rate 29 H 94 H 18 Blood Pressure 77/55 L 110/80 89/62 L Blood Pressure Mean 62 90 71 Pulse Ox 94 94 94 Oxygen Delivery Method Nasal Cannula Nasal Cannula Nasal Cannula Oxygen Flow Rate (L/min) 2 2 2 MDM <ALTAGRACIA Torres - Last Filed: 02/01/22 15:02> [facility] Lab Data Labs: Laboratory Results - last 24 hr 02/01/22 02/01/22 02/01/22 12:13 12:13 12:13 WBC 11.1 H RBC 3.26 L Hgb 10.6 L Hct 32.9 L MCV 100.9 H MCH 32.5 H MCHC 32.2 RDW Std Deviation 47.9 H RDW Coeff of [place] 12.9 Plt Count 220 MPV 10.4 Immature Gran % (Auto) 4.200 H Neut % (Auto) 53.2 Lymph % (Auto) 29.1 [place] % (Auto) 9.7 Eos % (Auto) 3.3 Baso % (Auto) 0.5 Absolute Neuts (auto) 5.9 Absolute Lymphs (auto) 3.22 Nucleated RBC % 0 PT 15.9 H INR 1.3 APTT 23.8 L Sodium 136 Potassium 3.4 L Chloride 104 Carbon Dioxide 18.0 L Anion Gap 14 BUN 24 H Creatinine 1.75 H Estim Creat Clear Calc 34.94 Est GFR (MDRD) Af Amer 50 L Est GFR (MDRD) Non-Af 41 L BUN/Creatinine Ratio 13.7 Glucose 261 H Lactic Acid Calcium 7.8 L Total Bilirubin 0.70 Direct Bilirubin 0.17 AST 17 ALT 20 Alkaline Phosphatase 58 Troponin I High Sens 10 Total Protein 5.4 L Albumin 2.4 L Globulin 3.0 Lipase 116 Urine Color Urine Clarity Urine pH Ur Specific [place] Urine Protein Urine Glucose (UA) Urine Ketones Urine Occult Blood Urine Nitrite Urine Bilirubin Urine Urobilinogen Ur Leukocyte Esterase Urine RBC Urine WBC Ur Squamous Epith Cells Urine Bacteria Urine Mucus 02/01/22 02/01/22 12:13 14:28 WBC RBC Hgb Hct MCV MCH MCHC RDW Std Deviation RDW Coeff of [place] Plt Count MPV Immature Gran % (Auto) Neut % (Auto) Lymph % (Auto) [place] % (Auto) Eos % (Auto) Baso % (Auto) Absolute Neuts (auto) Absolute Lymphs (auto) Nucleated RBC % PT INR APTT Sodium Potassium Chloride Carbon Dioxide Anion Gap BUN Creatinine Estim Creat Clear Calc Est GFR (MDRD) Af Amer Est GFR (MDRD) Non-Af BUN/Creatinine Ratio Glucose Lactic Acid 8.7 H* Calcium Total Bilirubin Direct Bilirubin AST ALT Alkaline Phosphatase Troponin I High Sens Total Protein Albumin Globulin Lipase Urine Color Yellow Urine Clarity Clear Urine pH 5.0 Ur Specific [place] 1.025 Urine Protein 15 H Urine Glucose (UA) Normal Urine Ketones Negative Urine Occult Blood Negative Urine Nitrite Negative Urine Bilirubin Negative Urine Urobilinogen Normal Ur Leukocyte Esterase Negative Urine RBC 0 SEEN Urine WBC 0 SEEN Ur Squamous Epith Cells 0 SEEN Urine Bacteria 0 SEEN Urine Mucus 0 SEEN Radiography Diagnostic Testing: Clinical Impression(s) from Imaging Studies Abdomen/Pelvis CT 02/01/22 13:48 IMPRESSION: Hemoperitoneum with findings consistent with an active bleed within the left upper quadrant posterior to the gastric fundus; cannot entirely exclude a gastric perforation Intraperitoneal free air likely secondary to recent surgical intervention. Ill-defined opacities within the omentum and peritoneum may be secondary to the hemoperitoneum however cannot entirely exclude a neoplastic process. Subcutaneous emphysema throughout the abdomen and pelvis as well as within the scrotum; may be partially secondary to recent surgical intervention however cannot exclude a gas producing organism. Minimal intraperitoneal free air likely secondary to recent surgical intervention. Atherosclerosis. N.B. : The above Results were Read Back by Martha Guevara MD to Eriberto Salazar MD, and understanding confirmed on 02/01/2022 14:50:43 (ET). Electronically Signed: Martha Guevara MD at 14:51 EST , ADDENDUM: 02/01/22 1458 IMPRESSION: Hemoperitoneum with findings consistent with an active bleed within the left upper quadrant posterior to the gastric fundus; cannot entirely exclude a gastric perforation Intraperitoneal free air likely secondary to recent surgical intervention. Ill-defined opacities within the omentum and peritoneum may be secondary to the hemoperitoneum however cannot entirely exclude a neoplastic process. Subcutaneous emphysema throughout the abdomen and pelvis as well as within the scrotum; may be partially secondary to recent surgical intervention however cannot exclude a gas producing organism. Minimal intraperitoneal free air likely secondary to recent surgical intervention. Atherosclerosis. N.B. : The above Results were Read Back by Martha Guevara MD to Eriberto Salazar MD, and understanding confirmed on 02/01/2022 14:50:43 (ET). Electronically Signed: Martha Guevara MD at 14:51 EST , Chest X-Ray 02/01/22 13:48 IMPRESSION: No acute cardiopulmonary process. Indeterminate subcutaneous air adjacent to the visualized abdomen, likely secondary to recent surgical intervention. Electronically Signed: Martha Guevara MD at 14:24 EST , Treatment and Re-Evaluation Narrative: Patient appears toxic, significantly ill, patient received a septic work-up. Initial work-up was concerning for air in his abdomen secondary to recent colostomy. Patient was given fluids, pain medicine, meropenem antibiotic. Patient CBC showed a hemoglobin of 10.6, slight leukocytosis with a white blood count 11.1. Patient's chemistries show slight renal dysfunction with a creatinine of 1.7, patient's lactic acid was elevated 8.7, patient was given IV fluids, meropenem. Patient's chest x-ray was unremarkable, patient's COVID was negative. Patient did receive a CT scan of the abdomen pelvis, this was interpreted by the radiologist and given to ER attending. It showed that there was hemoperitoneum with findings are consistent with active bleed within the left upper quadrant posterior to the gastric fundus, cannot entirely exclude a gastric perforation. Intraperitoneal free air is likely secondary to recent surgical invention. Ill-defined opacities within the omentum and peritoneum may be secondary to hemoperitoneum however cannot entirely exclude a neoplastic process. Subcutaneous emphysema throughout the abdomen and pelvis as well as within the scrotum may be partially secondary recent surgical invention however cannot exclude gas producing organism. This was relayed to [facility]. Patient will be transferred there for further intervention, critical care transport will be established. <Dr. Eriberto Salazar, DO - Last Filed: 02/01/22 15:18> [facility] Lab Data Attestation: I reviewed the patient's lab results. Labs: Laboratory Results - last 24 hr 02/01/22 02/01/22 02/01/22 12:13 12:13 12:13 WBC 11.1 H RBC 3.26 L Hgb 10.6 L Hct 32.9 L MCV 100.9 H MCH 32.5 H MCHC 32.2 RDW Std Deviation 47.9 H RDW Coeff of [place] 12.9 Plt Count 220 MPV 10.4 Immature Gran % (Auto) 4.200 H Neut % (Auto) 53.2 Lymph % (Auto) 29.1 [place] % (Auto) 9.7 Eos % (Auto) 3.3 Baso % (Auto) 0.5 Absolute Neuts (auto) 5.9 Absolute Lymphs (auto) 3.22 Nucleated RBC % 0 PT 15.9 H INR 1.3 APTT 23.8 L Sodium 136 Potassium 3.4 L Chloride 104 Carbon Dioxide 18.0 L Anion Gap 14 BUN 24 H Creatinine 1.75 H Estim Creat Clear Calc 34.94 Est GFR (MDRD) Af Amer 50 L Est GFR (MDRD) Non-Af 41 L BUN/Creatinine Ratio 13.7 Glucose 261 H Lactic Acid Calcium 7.8 L Total Bilirubin 0.70 Direct Bilirubin 0.17 AST 17 ALT 20 Alkaline Phosphatase 58 Troponin I High Sens 10 Total Protein 5.4 L Albumin 2.4 L Globulin 3.0 Lipase 116 Urine Color Urine Clarity Urine pH Ur Specific [place] Urine Protein Urine Glucose (UA) Urine Ketones Urine Occult Blood Urine Nitrite Urine Bilirubin Urine Urobilinogen Ur Leukocyte Esterase Urine RBC Urine WBC Ur Squamous Epith Cells Urine Bacteria Urine Mucus 02/01/22 02/01/22 12:13 14:28 WBC RBC Hgb Hct MCV MCH MCHC RDW Std Deviation RDW Coeff of [place] Plt Count MPV Immature Gran % (Auto) Neut % (Auto) Lymph % (Auto) [place] % (Auto) Eos % (Auto) Baso % (Auto) Absolute Neuts (auto) Absolute Lymphs (auto) Nucleated RBC % PT INR APTT Sodium Potassium Chloride Carbon Dioxide Anion Gap BUN Creatinine Estim Creat Clear Calc Est GFR (MDRD) Af Amer Est GFR (MDRD) Non-Af BUN/Creatinine Ratio Glucose Lactic Acid 8.7 H* Calcium Total Bilirubin Direct Bilirubin AST ALT Alkaline Phosphatase Troponin I High Sens Total Protein Albumin Globulin Lipase Urine Color Yellow Urine Clarity Clear Urine pH 5.0 Ur Specific [place] 1.025 Urine Protein 15 H Urine Glucose (UA) Normal Urine Ketones Negative Urine Occult Blood Negative Urine Nitrite Negative Urine Bilirubin Negative Urine Urobilinogen Normal Ur Leukocyte Esterase Negative Urine RBC 0 SEEN Urine WBC 0 SEEN Ur Squamous Epith Cells 0 SEEN Urine Bacteria 0 SEEN Urine Mucus 0 SEEN Radiography Diagnostic Testing: Clinical Impression(s) from Imaging Studies Abdomen/Pelvis CT 02/01/22 13:48 IMPRESSION: Hemoperitoneum with findings consistent with an active bleed within the left upper quadrant posterior to the gastric fundus; cannot entirely exclude a gastric perforation Intraperitoneal free air likely secondary to recent surgical intervention. Ill-defined opacities within the omentum and peritoneum may be secondary to the hemoperitoneum however cannot entirely exclude a neoplastic process. Subcutaneous emphysema throughout the abdomen and pelvis as well as within the scrotum; may be partially secondary to recent surgical intervention however cannot exclude a gas producing organism. Minimal intraperitoneal free air likely secondary to recent surgical intervention. Atherosclerosis. N.B. : The above Results were Read Back by Martha Guevara MD to Eriberto Salazar MD, and understanding confirmed on 02/01/2022 14:50:43 (ET). Electronically Signed: Martha Guevara MD at 14:51 EST Reading Location ID and State: [facility] / [place] Tel , Service support , ADDENDUM: 02/01/22 5438 IMPRESSION: Hemoperitoneum with findings consistent with an active bleed within the left upper quadrant posterior to the gastric fundus; cannot entirely exclude a gastric perforation Intraperitoneal free air likely secondary to recent surgical intervention. Ill-defined opacities within the omentum and peritoneum may be secondary to the hemoperitoneum however cannot entirely exclude a neoplastic process. Subcutaneous emphysema throughout the abdomen and pelvis as well as within the scrotum; may be partially secondary to recent surgical intervention however cannot exclude a gas producing organism. Minimal intraperitoneal free air likely secondary to recent surgical intervention. Atherosclerosis. N.B. : The above Results were Read Back by Martha Guevara MD to Eriberto Salazar MD, and understanding confirmed on 02/01/2022 14:50:43 (ET). Electronically Signed: Martha Guevara MD at 14:51 EST , Chest X-Ray 02/01/22 13:48 IMPRESSION: No acute cardiopulmonary process. Indeterminate subcutaneous air adjacent to the visualized abdomen, likely secondary to recent surgical intervention. Electronically Signed: Martha Guevara MD at 14:24 EST , Treatment and Re-Evaluation Narrative: Patient appears toxic, significantly ill, patient received a septic work-up. Initial work-up was concerning for air in his abdomen secondary to recent colostomy. Patient was given fluids, pain medicine, meropenem antibiotic. Patient CBC showed a hemoglobin of 10.6, slight leukocytosis with a white blood count 11.1. Patient's chemistries show slight renal dysfunction with a creatinine of 1.7, patient's lactic acid was elevated 8.7, patient was given IV fluids, meropenem. My interpretation of the chest x-ray is no acute process. Patient's COVID was negative. Patient did receive a CT scan of the abdomen pelvis, this was interpreted by the radiologist and given to ER attending. It showed that there was hemoperitoneum with findings are consistent with active bleed within the left upper quadrant posterior to the gastric fundus, cannot entirely exclude a gastric perforation. Intraperitoneal free air is likely secondary to recent surgical invention. Ill-defined opacities within the omentum and peritoneum may be secondary to hemoperitoneum however cannot entirely exclude a neoplastic process. Subcutaneous emphysema throughout the abdomen and pelvis as well as within the scrotum may be partially secondary recent surgical invention however cannot exclude gas producing organism. This was relayed to [facility]. Patient will be transferred there for further intervention, critical care transport will be established. I performed a history and physical examination of the patient and discussed management plan with the PLATFORM CONSULTANT. I reviewed the CNPs note and agree with the documented findings and plan of care. Patient is about 1 week postop from a colostomy due to rectal cancer. States that last night around 1 AM he felt something pop in his stomach. He had severe pain since. He is got subcutaneous air in the abdominal wall tissues and he appears somewhat distended. He has diffuse tenderness to palpation. CT is concerning for perforated stomach as there is some active bleeding and hemoperitoneum behind the stomach. There is significant more air than this is expected to be from the postop stage. He received IV fluids his lactic acid is 8.7. He also received meropenem. The patient did receive a milligram of Dilaudid and acutely became hypotensive but this rebounded with simple IV fluids and time. I spoke with [facility] and he will be transferred there Eriberto Salazar DO, [place] Discharge Plan Triage Chief Complaint: Abd Pain Other Complaint: Fever ED Midlevel Provider: Orestes Fields ED Provider: Eriberto Salazar Dx/Rx/DC Orders Clinical Impression: Pneumoperitoneum, Hemoperitoneum, Abdominal pain, acute, Elevated lactic acid level, Acute hypotension Prescriptions: No Action Adult 50 Plus Probiotic 4 billion cell capsule 4,000 mmu cells PO DAILY Rx Instructions: administer with a meal coenzyme Q10 50 mg capsule 100 mg PO DAILY Label Comments: SUPPLIMENT multivitamin 1 EACH tablet 1 ea PO DAILY cholecalciferol (vitamin D3) 50 mcg (2,000 unit) capsule 4,000 unit PO DAILY PRN (Reason: vitamin) nitroglycerin 0.4 MG tablet, sublingual 0.4 mg SL PRN PRN (Reason: Cardiac/Chest Pain) atorvastatin 40 mg tablet 40 mg PO DAILY Qty: 90 3RF clopidogrel 75 mg tablet 75 mg PO DAILY Qty: 90 3RF metoprolol tartrate 25 mg tablet 25 mg PO BID Qty: 180 3RF Primary Care Provider: Meme Keith Referrals: Meme Keith MD [Primary Care Provider] - Disposition Disposition: Acute Care Hospital Discharge Location: [facility]
[2022-02-01] MEDS: HYDROmorphone 1 MG/ML Syringe IV (13:52)
[2022-02-01] MEDS: Ondansetron 4 MG/2 ML Vial IV (13:52)
[2022-02-01] MEDS: 0.9% Normal Saline 1,000 ML 1000 ML IV ×3 (13:52→15:13)
[2022-02-01 14:31] LABS: International Normalized Ratio 1.3; Prothrombin Time (Protime)PT. 15.9 SECONDS (11.7-14.9)
[2022-02-01 14:32] LABS: Bacteria 0 SEEN /hpf (None Seen); Mucous, Urine 0 SEEN /hpf (<or=2+); Red Blood Cells-Urine 0 SEEN /hpf (0-5); Squamous Epithelial Cells - UA 0 SEEN /hpf (0-5); White Blood Cells 0 SEEN /hpf (0-5)
[2022-02-01 14:32] LABS: Partial Thromboplast Time 23.8 Seconds (24.1-36.2)
[2022-02-01 14:35] LABS: Absolute Lymphocyte Count 3.22 X10^3/uL (0.83-4.51); Absolute Neutrophil Count 5.9 X10^3/uL (2.0-7.7); Basophil# 0.05 X10^3/uL; Basophil% 0.5 % (0-1); Eosinophil# 0.36 X10^3/uL; Eosinophils% 3.3 % (0-5); Hematocrit 32.9 % (40-54); Hemoglobin 10.6 g/dL (13.0-16.5); Lymphocyte # 3.22 X10^3/ul (0.83-4.51); Lymphocyte % 29.1 % (19-41); Mean Corp Hgb Conc 32.2 g/dL (32-36); Mean Corpuscular Hgb 32.5 pg (27.0-32.0); Mean Corpuscular Volume 100.9 fL (80-94); Mean Platelet Vol. 10.4 fl (6.2-12.0); Monocyte# 1.07 X10^3/uL; Monocyte% 9.7 % (0-10); NRBC Flagged by Analyzer 0 % (0-5); Neutrophil # 5.89 X10^3/uL (2.7-7.7); Neutrophil % 53.2 % (47-70); Platelet Count 220 K/mm3 (150-450); RBC Distribution Width CV 12.9 % (11.6-14.6); RBC Distribution Width SD 47.9 fl (35.1-43.9); Red Blood Count 3.26 M/mm3 (4.6-6.2); White Blood Count 11.1 K/mm3 (4.4-11.0)
[2022-02-01] MEDS: 0.9% Normal Saline 1,000 ML 250 ML IV (14:37)
[2022-02-01 14:39] LABS: Color, Urine Yellow (Yellow); Glucose, Dipstick Normal (Normal); Ketone-Dipstick Negative (Negative); Leukocyte Esterase-Dipstick Negative /ul (Negative); Nitrite-Dipstick Negative (Negative); Occult Blood-Urine Negative /ul (Negative); Protein-Dipstick 15 mg/dl (Negative); Specific Gravity, Urine 1.025 (1.002-1.030); Urine Bilirubin Dipstick Negative (Negative); Urine Clarity Clear (Clear); Urine Urobilinogen Normal (Normal)
[2022-02-01 14:49] LABS: Lactic Acid 8.7 mmol/L (0.4-1.9)
[2022-02-01 14:51] LABS: AST(SGOT) 17 U/L (15-37); Alanine Aminotransfer ALT/SGPT 20 U/L (16-61); Albumin, Serum 2.4 g/dL (3.2-5.0); Alkaline Phosphatase 58 U/L (45-117); Anion Gap 14 (5-15); BUN 24 mg/dL (7-18); BUN/Creat Ratio 13.7 RATIO (10-20); Bilirubin, Direct 0.17 mg/dL (0.00-0.30); Calcium,Total 7.8 mg/dL (8.5-10.1); Chloride 104 mmol/L (98-107); Creatinine, Serum 1.75 mg/dL (0.70-1.30); EST Glomerular Filtration Rate 41 mL/min (>60); Est Glom Filt Rate - Afr Amer 50 mL/min (>60); Estimated Creatinine Clearance 34.94 ml/min; Glucose 261 mg/dL (74-106); Lipase 116 U/L (73-393); Potassium 3.4 mmol/L (3.5-5.1); Protein, Total 5.4 g/dL (6.4-8.2); Sodium Level 136 mmol/L (136-145); Troponin-I HS 10 pg/mL (3.0-78.0)
--- NOTE | 2022-02-01 15:08 | NURSING ---
FAXED FACESHEET TO [facility]
--- NOTE | 2022-02-01 16:05 | NURSING ---
[facility] AIR ETA IS 20 MIN
--- NOTE | 2022-02-01 16:05 | NURSING ---
[facility] G54 BED 7 NURSE TO NURSE [phone] ORTIZ
--- NOTE | 2022-02-01 16:16 | ED.RN ---
RAMBO GAVE VERBAL CONSENT FOR BLOOD GIVE HIM WHAT HE NEEDS
--- NOTE | 2022-02-01 16:19 | ED.RN ---
PT. HYPOTENSIVE, C/O SEVERE BACK PAIN, DR. SHIRLEY NOTIFIED AND HE ORDERED TRAUMA BLOOD. MED FLIGHT ETA 4:25
--- NOTE | 2022-02-01 16:21 | ED.RN ---
HANGING 2 UNITS OF TRAUMA BLOOD. UNIT NUMBERS [id number] AND [id number]
--- NOTE | 2022-02-01 17:02 | ED.RN ---
report given to Rose at [facility]
[2022-02-01 18:22] LABS: Reflex Lactate? Y
== END 2022-02-01 17:03 | disposition short-term general hospital (02) ==
PROVIDERS: Emergency Provider Emergency Medicine; PCP Internal Medicine; Visit Provider Emergency Medicine
DX: R10.9 Unspecified abdominal pain (principal); I25.10 Atherosclerotic heart disease of native coronary artery without angina pectoris; R50.9 Fever, unspecified; K66.1 Hemoperitoneum; I95.9 Hypotension, unspecified; I10 Essential (primary) hypertension; Z87.891 Personal history of nicotine dependence; R74.02 Elevation of levels of lactic acid dehydrogenase [LDH]; E78.5 Hyperlipidemia, unspecified; Z20.822 Contact with and (suspected) exposure to COVID-19
CPT/HCPCS: 36430; 51702; 71045; 74177; 80048; 80076; 81001; 83605; 83690; 84484; 85025; 85610; 85730; 86850; 86900; 86901; 86920; 87040; 87426; 96361; 96365; 96374; 96375; 99285; J2185; J7030; J7040; P9016; Q9967; A4216; J2405; J3490

== ENCOUNTER 2022-02-27 04:00 | Emergency (ER) | payer MEDICARE, OTHER, SELFPAY ==
[2022-02-27 04:02] VITALS: BP 133/82; PULSE 83; RESP 18; TEMP 36; O2SAT 94; BMI 29.6
--- NOTE | 2022-02-27 04:15 | ED.VIS.GI ---
HPI HPI - GI History of Present Illness Chief Complaint: GI Bleed Narrative Narrative: 72-year-old male past medical history of rectal carcinoma states that he had surgery back in December, approximately 1 month ago at the [facility] for diverting ileostomy. He was doing well, and suddenly had a blood vessel that had burst on February 01 from his spleen to his stomach. He was here at [facility] and life flighted to [facility]. He states its been an ordeal since then and he has been recovering and was released from the hospital/[facility] 2 days ago. He was under the service of Dr. Riley. He became concerned and called EMS this evening because approximately 40 to 45 minutes ago he got up from the recliner and felt something wet. He went to the bathroom and noticed blood coming from his rectum that went down his leg. He denies any blood in his ostomy bag. No lightheadedness, no other symptoms. He does not take blood thinners except for an aspirin. He does not understand how he had rectal bleeding if he has a diverting ostomy. [facility] Medical History (Updated 02/27/22 @ 05:32 by Geovanny Villafana MD) Atherosclerotic heart disease of [place] coronary artery without angina pectoris Bilateral carotid artery stenosis CAD (coronary artery disease) Dilated aortic root Dyslipidemia Essential hypertension Gastric artery aneurysm GERD (gastroesophageal reflux disease) HTN (hypertension) Hypoacusis Ileostomy present Intra abdominal hemorrhage Meniere's disease Old myocardial infarction Peripheral vascular disease Premature ventricular contraction Presence of stent in coronary artery (~12/22/16) Pulmonary embolism Rectal cancer Subclavian artery stenosis, left 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 Home Medications coenzyme Q10 50 mg capsule 100 mg PO DAILY vitamin 03/04/18 [History Last Taken Unknown] cholecalciferol (vitamin D3) 50 mcg (2,000 unit) capsule 4,000 unit PO DAILY PRN vitamin 07/21/19 [History Last Taken Unknown] atorvastatin 40 mg tablet 40 mg PO DAILY #90 tabs 05/30/21 [Rx Last Taken Unknown] metoprolol tartrate 25 mg tablet 25 mg PO BID heart and BP #180 tabs 05/30/21 [Rx Last Taken Unknown] acetaminophen 500 mg tablet 1,000 mg PO Q6H PRN Pain 02/26/22 [History Last Taken Unknown] tamsulosin 0.4 mg capsule 0.4 mg PO DAILY 02/26/22 [History Last Taken Unknown] aspirin 81 mg tablet,delayed release mg 02/27/22 [History Last Taken Unknown] Allergy/AdvReac Type Severity Reaction Status Date / Time clindamycin Allergy PT UNABLE Verified 02/27/22 04:04 TO RESPOND-NEEDS F/U cat dander [cats] AdvReac PT UNSURE Verified 02/27/22 04:04 OF REACTION codeine AdvReac Upset Verified 02/27/22 04:04 Stomach Family History Father CAD (coronary artery disease) Myocardial infarction, Onset Age: 45 Mother Carotid artery stenosis Surgical History History of tonsillectomy History of transurethral resection of prostate (~09/2016) Presence of coronary angioplasty implant and graft (~12/22/16) S/P CABG (coronary artery bypass graft) (~09/16/98) S/P PTCA (percutaneous transluminal coronary angioplasty) (~12/22/16) Social History Smoking Status: Former smoker how long ago did patient quit smokin alcohol intake: current details: occasional ROS ROS ED ROS Narrative Constitutional: No fever, no chills. HEENT: No sore throat. No neck pain. No loss of vision. No rhinorrhea. Cardiovascular: No chest pain. No palpitations. No pedal edema. Respiratory: No cough, no shortness of breath. Abdominal: No abdominal pain. No nausea. No vomiting. Positive blood from rectum. Genitourinary: No dysuria. No hematuria. Musculoskeletal: No myalgias. No arthralgias. Neurologic: No headaches. No dizziness. No lightheadedness. Skin: No rash. No change in color. Psychiatric: No depression. No anxiety. EXAM Physical Exam Narrative Exam Narrative: Afebrile. Vital signs noted. HEENT: Normocephalic. Atraumatic. PERRL, EOMI. Neck soft and supple. No point tenderness or step off. Cardiovascular: Regular rate and rhythm. No murmurs, rubs, or gallops appreciated. Respiratory: No tachypnea. Lungs clear to auscultation bilaterally. Gastrointestinal: Abdomen soft, nontender, with normoactive bowel sounds. No rebound or guarding. Chaperoned rectal examination shows no evidence of active bleeding or dried blood. Patient stated he had a rag inserted between his buttocks, and there is no evidence of blood on the rag which was removed. Neurological: Awake. Alert. Nonfocal, nonlateralizing. Skin: No rash. Normal color. No pallor. Musculoskeletal: No pedal edema. Full range of motion extremities. Const Vital Signs: 02/27/22 04:02 Temperature 96.8 F L Temperature Source Temporal Pulse Rate 83 Respiratory Rate 18 Blood Pressure 133/82 H Blood Pressure Mean 99 Pulse Ox 94 Oxygen Delivery Method Room Air MDM MDM MDM Narrative Medical decision making narrative: I will obtain a CBC. I do not feel that emergent imaging is indicated. He has no current active bleeding from his rectum. I attempted to contact the [facility] transfer line to speak with colorectal surgery as the patient had recently been discharged from that facility approximately 3 days ago. CBC shows hemoglobin stable at 9.6, normal white count of 10.9, platelet count normal at 369. BMP is grossly unremarkable. I was able to discuss the patient with Dr. Turcios, the colorectal fellow at [facility]. In discussion with him, it was not felt that CTA imaging was indicated. The area of his previous vessel bleeding does not have a direct correlation with his reported rectal bleeding. He did state that at time to time, the patient may pass blood from the rectum, whether it be old or new. His is at the bedside and stated currently that she thought it looked like old blood that the patient had passed. As he is not currently hemorrhaging, and his vital signs have remained stable, I feel he can be discharged safely home with follow-up. Patient stated that he wanted to go home and is comfortable. He will return with any increased rectal bleeding, including multiple episodes of passage of blood. He will return with any new or worsening symptoms. Disposition is discharged home in stable condition. Lab Data Attestation: I reviewed the patient's lab results. Labs: Laboratory Results - last 24 hr 02/27/22 02/27/22 02/27/22 04:08 04:35 04:35 WBC Cancelled 10.9 Corrected WBC Cancelled RBC Cancelled 3.21 L Hgb Cancelled 9.6 L Hct Cancelled 30.7 L MCV Cancelled 95.6 H MCH Cancelled 29.9 MCHC Cancelled 31.3 L RDW Std Deviation Cancelled 59.3 H RDW Coeff of [place] Cancelled 17.0 H Plt Count Cancelled 369 MPV Cancelled 9.3 Immature Gran % (Auto) Cancelled 4.500 H Neut % (Auto) Cancelled 65.8 Lymph % (Auto) Cancelled 11.5 L Maries % (Auto) Cancelled 14.3 H Eos % (Auto) Cancelled 3.2 Baso % (Auto) Cancelled 0.7 Absolute Neuts (auto) Cancelled 7.2 Absolute Lymphs (auto) Cancelled 1.26 Total Counted Cancelled Neutrophils % (Manual) Cancelled Band Neutrophils % Cancelled Lymphocytes % (Manual) Cancelled Monocytes % (Manual) Cancelled Eosinophils % (Manual) Cancelled Basophils % (Manual) Cancelled Metamyelocytes % Cancelled Myelocytes % Cancelled Promyelocytes % Cancelled Blast Cells % Cancelled Plasma Cell % (Manual) Cancelled Other Cells % Cancelled Nucleated RBC % Cancelled 0 Nucleated RBCs/100 WBC Cancelled Differential Comment Cancelled SCANNED Diff Path Review Cancelled Hypersegmented Neuts Cancelled Atypical Lymphocytes Cancelled Reactive Lymphocytes Cancelled Smudge Cells Cancelled Toxic Granulation Cancelled Toxic Vacuolation Cancelled Dohle Bodies Cancelled Ta Rods Cancelled Platelet Estimate Cancelled Plt Morphology Comment Cancelled RBC Morphology Cancelled Polychromasia Cancelled Hypochromasia Cancelled Poikilocytosis Cancelled Basophilic Stippling Cancelled Anisocytosis Cancelled Microcytosis Cancelled Macrocytosis Cancelled Spherocytes Cancelled Sickle Cells Cancelled Target Cells Cancelled Tear Drop Cells Cancelled Ovalocytes Cancelled Stomatocytes Cancelled [place] Bodies Cancelled Mark Cells Cancelled Bite Cells Cancelled Crenated Cell Cancelled Acanthocytes (Spur) Cancelled Rouleaux Cancelled Schistocytes Cancelled Sodium 137 Potassium 3.5 Chloride 106 Carbon Dioxide 25.0 Anion Gap 6 BUN 16 Creatinine 0.70 Estim Creat Clear Calc 60.26 Est GFR (MDRD) Af Amer 144 Est GFR (MDRD) Non-Af 119 BUN/Creatinine Ratio 23.0 H Glucose 104 Calcium 7.7 L Discharge Plan Triage Chief Complaint: GI Bleed ED Provider: Geovanny Villafana Dx/Rx/DC Orders Clinical Impression: Rectal bleeding, History of rectal cancer Instructions: Understanding Rectal Bleeding, ED Lower GI Bleeding (Stable) Prescriptions: No Action tamsulosin 0.4 mg capsule 0.4 mg PO DAILY acetaminophen 500 mg tablet 1,000 mg PO Q6H PRN (Reason: Pain) coenzyme Q10 50 mg capsule 100 mg PO DAILY Label Comments: SUPPLIMENT cholecalciferol (vitamin D3) 50 mcg (2,000 unit) capsule 4,000 unit PO DAILY PRN (Reason: vitamin) aspirin [Aspir-81] 81 mg Tablet,Delayed Release (Dr/Ec) atorvastatin 40 mg tablet 40 mg PO DAILY Qty: 90 3RF metoprolol tartrate 25 mg tablet 25 mg PO BID Qty: 180 3RF Primary Care Provider: Meme Keith Referrals: Meme Keith MD [Primary Care Provider] - Activity Restrictions/Additional Instructions: Follow-up with Dr. Riley at the [facility] in the next 1 to 2 weeks. Return with increased rectal bleeding, new or worsening symptoms. Disposition Disposition: Home, Self Care
[2022-02-27 04:40] LABS: Absolute Lymphocyte Count 1.26 X10^3/uL (0.83-4.51); Absolute Neutrophil Count 7.2 X10^3/uL (2.0-7.7); Basophil# 0.08 X10^3/uL; Basophil% 0.7 % (0-1); Eosinophil# 0.35 X10^3/uL; Eosinophils% 3.2 % (0-5); Hematocrit 30.7 % (40-54); Hemoglobin 9.6 g/dL (13.0-16.5); Lymphocyte # 1.26 X10^3/ul (0.83-4.51); Lymphocyte % 11.5 % (19-41); Mean Corp Hgb Conc 31.3 g/dL (32-36); Mean Corpuscular Hgb 29.9 pg (27.0-32.0); Mean Corpuscular Volume 95.6 fL (80-94); Mean Platelet Vol. 9.3 fl (6.2-12.0); Monocyte# 1.56 X10^3/uL; Monocyte% 14.3 % (0-10); NRBC Flagged by Analyzer 0 % (0-5); Neutrophil # 7.17 X10^3/uL (2.7-7.7); Neutrophil % 65.8 % (47-70); POSITIVE DIFFERENTIAL YES; Platelet Count 369 K/mm3 (150-450); RBC Distribution Width SD 59.3 fl (35.1-43.9); Red Blood Count 3.21 M/mm3 (4.6-6.2); White Blood Count 10.9 K/mm3 (4.4-11.0)
[2022-02-27 05:02] LABS: Anion Gap 6 (5-15); BUN 16 mg/dL (7-18); Calcium,Total 7.7 mg/dL (8.5-10.1); Chloride 106 mmol/L (98-107); EST Glomerular Filtration Rate 119 mL/min (>60); Est Glom Filt Rate - Afr Amer 144 mL/min (>60); Estimated Creatinine Clearance 60.26 ml/min; Glucose 104 mg/dL (74-106); Potassium 3.5 mmol/L (3.5-5.1); Sodium Level 137 mmol/L (136-145)
[2022-02-27 05:10] LABS: Differential Indicated SCAN CRITERIA MET
[2022-02-27 05:32] LABS: Differential Comment SCANNED
[2022-02-27 05:44] VITALS: BP 126/72; PULSE 81; RESP 16
== END 2022-02-27 05:44 | disposition home or self-care (01) ==
PROVIDERS: Emergency Provider Emergency Medicine; PCP Internal Medicine; Visit Provider Emergency Medicine
DX: K62.5 Hemorrhage of anus and rectum (principal); I10 Essential (primary) hypertension; I25.10 Atherosclerotic heart disease of native coronary artery without angina pectoris; E78.5 Hyperlipidemia, unspecified; Z87.891 Personal history of nicotine dependence; Z85.048 Personal history of other malignant neoplasm of rectum, rectosigmoid junction, and anus; Z79.82 Long term (current) use of aspirin
CPT/HCPCS: 80048; 85025; 99283; A4216

== ENCOUNTER 2022-03-01 20:11 | Emergency (ER) | payer MEDICARE, OTHER, SELFPAY ==
[2022-03-01] VITALS (8 sets, daily range): BP systolic 121–126; BP diastolic 74–79; PULSE 106–112; RESP 17–19; TEMP 37–37.6; O2SAT 94–97; BMI 28.6
[2022-03-01 21:20] LABS: Absolute Lymphocyte Count 1.14 X10^3/uL (0.83-4.51); Absolute Neutrophil Count 8.5 X10^3/uL (2.0-7.7); Basophil# 0.06 X10^3/uL; Basophil% 0.5 % (0-1); Eosinophil# 0.18 X10^3/uL; Eosinophils% 1.6 % (0-5); Hematocrit 35.8 % (40-54); Hemoglobin 11.3 g/dL (13.0-16.5); Lymphocyte # 1.14 X10^3/ul (0.83-4.51); Lymphocyte % 10.1 % (19-41); Mean Corp Hgb Conc 31.6 g/dL (32-36); Mean Corpuscular Hgb 30.1 pg (27.0-32.0); Mean Corpuscular Volume 95.5 fL (80-94); Mean Platelet Vol. 9.6 fl (6.2-12.0); Monocyte% 10.7 % (0-10); NRBC Flagged by Analyzer 0 % (0-5); Neutrophil # 8.47 X10^3/uL (2.7-7.7); Neutrophil % 75.2 % (47-70); Platelet Count 398 K/mm3 (150-450); RBC Distribution Width CV 17.5 % (11.6-14.6); Red Blood Count 3.75 M/mm3 (4.6-6.2); White Blood Count 11.3 K/mm3 (4.4-11.0)
[2022-03-01 21:42] LABS: Anion Gap 6 (5-15); BUN 17 mg/dL (7-18); Calcium,Total 8.1 mg/dL (8.5-10.1); Chloride 107 mmol/L (98-107); Creatinine, Serum 0.95 mg/dL (0.70-1.30); EST Glomerular Filtration Rate 83 mL/min (>60); Est Glom Filt Rate - Afr Amer 101 mL/min (>60); Estimated Creatinine Clearance 63.43 ml/min; Glucose 125 mg/dL (74-106); Potassium 3.8 mmol/L (3.5-5.1); Sodium Level 138 mmol/L (136-145)
--- NOTE | 2022-03-01 22:04 | CT_ITS ---
We are attempting to reach an attending provider to discuss findings. An addendum with communication details will be sent when the communication is complete. STUDY: CTA CHEST REASON FOR EXAM: Male, 72 years old. PE RADIATION DOSAGE (If Supplied By Facility): CTDIvol = ( 24.00 ) mGy, DLP = ( 520.61 ) mGycm TECHNIQUE: The examination was performed with the intravenous administration of IV 100mL [id number]-370. Post-processing of the angiographic images was performed, with multiplanar reformation and 3D reconstruction. Individualized dose optimization techniques were used for this CT. COMPARISON: None. FINDINGS: Status post median sternotomy. Normal enhancement of the main pulmonary artery and right and left pulmonary arteries. Normal enhancement of the bilateral peripheral pulmonary arteries. Branching filling defect in the distal main right pulmonary artery extending into the ascending and descending pulmonary arteries consistent with pulmonary embolism.. Filling defects within the before meals and descending left pulmonary arteries consistent with pulmonary embolism. Normal thoracic aorta and visualized great vessels. There is no demonstrated aortic dissection. Normal heart and pericardium. Normal mediastinum. Normal hilar regions. Normal visualized trachea and bronchi. The lungs are well expanded. Normal pulmonary parenchyma. Small left pleural effusion. Normal chest wall structures. Normal osseous structures. Multiple hepatic cysts of varying sizes. CT/CTA Chest W/WO Contrast IMPRESSION: Positive for bilateral pulmonary emboli. Electronically Signed: Lui White MD at 23:22 EST ,
[2022-03-01 22:31] LABS: AST(SGOT) 67 U/L (15-37); Alanine Aminotransfer ALT/SGPT 46 U/L (16-61); Alkaline Phosphatase 109 U/L (45-117); Bilirubin, Direct 0.28 mg/dL (0.00-0.30); Globulin 3.9 g/dL (2.2-4.2); International Normalized Ratio 1.3; Protein, Total 6.9 g/dL (6.4-8.2); Prothrombin Time (Protime)PT. 15.6 SECONDS (11.7-14.9)
[2022-03-01 22:33] LABS: Partial Thromboplast Time 30.2 Seconds (24.1-36.2)
--- NOTE | 2022-03-01 23:04 | ED.VIS.DYS ---
HPI <Dr. Raghu Turpin DO - Last Filed: 03/02/22 00:57> History of Present Illness Chief Complaint: Shortness of Breath Informant: patient and spouse/S.O. Onset/Context/Timing Onset: Weeks (3) Context: gradual Timing: Continuous Quality: Positive for Dyspnea on exertion Worsened by: Exertion Relieved by: Oxygen Associated Symptoms cough; Negative for rhinorrhea, post nasal drip, ear pain, fever, sore throat, chills, sweats, clear sputum, white sputum, yellow sputum or green sputum Narrative Narrative: Patient presents with shortness of breath that has been getting progressively worse over the past 3 weeks. Patient states his breathing has been constant. Patient states the oxygen seems to help with his breathing. Patient admits to a cough but denies any sputum production. Patient denies any fevers or chills. Patient states he has a rattling pain in his left upper chest. Patient also had a near syncopal episode today. Patient states he stood up and felt like he was going to pass out. Patient states he did not pass out completely. Patient states he had a recent colostomy. Patient has a vena cava filter in place. PE Risk Factors: Positive for Cancer, Prior DVT or PE and Recent surgery [facility] <Dr. Raghu Turpin DO - Last Filed: 03/02/22 00:57> [facility] Medical History Atherosclerotic heart disease of [place] coronary artery without angina pectoris Bilateral carotid artery stenosis CAD (coronary artery disease) Dilated aortic root Dyslipidemia Essential hypertension Gastric artery aneurysm GERD (gastroesophageal reflux disease) HTN (hypertension) Hypoacusis Ileostomy present Intra abdominal hemorrhage Meniere's disease Old myocardial infarction Peripheral vascular disease Premature ventricular contraction Presence of stent in coronary artery (~12/22/16) Pulmonary embolism Rectal cancer Subclavian artery stenosis, left 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 Home Medications coenzyme Q10 50 mg capsule (Co Q-10) 100 mg PO DAILY vitamin 03/04/18 [History Last Taken Unknown] cholecalciferol (vitamin D3) 50 mcg (2,000 unit) capsule 4,000 unit PO DAILY PRN vitamin 07/21/19 [History Last Taken Unknown] atorvastatin 40 mg tablet 40 mg PO DAILY #90 tabs 05/30/21 [Rx Last Taken Unknown] metoprolol tartrate 25 mg tablet 25 mg PO BID heart and BP #180 tabs 05/30/21 [Rx Last Taken Unknown] acetaminophen 500 mg tablet 1,000 mg PO Q6H PRN Pain 02/26/22 [History Last Taken Unknown] tamsulosin 0.4 mg capsule 0.4 mg PO DAILY 02/26/22 [History Last Taken Unknown] aspirin 81 mg tablet,delayed release 81 mg PO DAILY 02/27/22 [History Last Taken Unknown] Allergy/AdvReac Type Severity Reaction Status Date / Time clindamycin Allergy PT UNABLE Verified 02/27/22 04:04 TO RESPOND-NEEDS F/U cat dander [cats] AdvReac PT UNSURE Verified 02/27/22 04:04 OF REACTION codeine AdvReac Upset Verified 02/27/22 04:04 Stomach Family History Father CAD (coronary artery disease) Myocardial infarction, Onset Age: 45 Mother Carotid artery stenosis Surgical History History of tonsillectomy History of transurethral resection of prostate (~09/2016) Presence of coronary angioplasty implant and graft (~12/22/16) S/P CABG (coronary artery bypass graft) (~09/16/98) S/P PTCA (percutaneous transluminal coronary angioplasty) (~12/22/16) Social History Smoking Status: Former smoker how long ago did patient quit smokin alcohol intake: current details: occasional ROS <Dr. Raghu Turpin DO - Last Filed: 03/02/22 00:57> ROS ED Constitutional Constitutional ED: Denies chills or fever(s) Eyes Eyes: Denies blurry vision or change in vision ENT ENT ED: Denies rhinorrhea or sore throat Cardiovascular Cardiovascular: Reports chest pain; Denies palpitations Respiratory/Chest Respiratory/Chest: Reports cough and dyspnea Gastrointestinal Gastrointestinal: Denies nausea or vomiting Genitourinary Genitourinary ED: Denies dysuria or hematuria Musculoskeletal Musculoskeletal: Reports neck pain; Denies back pain Integumentary Denies abscess or rash Neurologic Neurologic: Denies headache(s) or weakness Allergic/Immunologic Allergic/Immunologic ED: Denies mouth swelling or urticaria EXAM <Dr. Raghu Turpin, DO - Last Filed: 03/02/22 00:57> Physical Exam Const Vital Signs: 03/01/22 20:13 03/01/22 20:25 03/01/22 20:26 Temperature 98.6 F 98.6 F Temperature Source Oral Oral Pulse Rate 112 H 112 H Respiratory Rate 18 19 H Respiratory Effort Normal Non-Labored Respiratory Depth Normal Respiratory Pattern Normal Blood Pressure 124/79 H 124/79 H Blood Pressure Mean 94 94 Pulse Ox 94 96 Oxygen Delivery Method Room Air Room Air Room Air 03/01/22 20:32 03/01/22 20:37 03/01/22 20:37 Temperature 98.6 F Temperature Source Oral Pulse Rate 112 H Respiratory Rate 19 H 18 Respiratory Effort Normal Non-Labored Respiratory Depth Respiratory Pattern Normal Blood Pressure 121/76 H Blood Pressure Mean 91 Pulse Ox 97 96 Oxygen Delivery Method Room Air Room Air 03/01/22 21:03 03/01/22 21:03 03/01/22 21:47 Temperature 99.3 F H Temperature Source Oral Pulse Rate 112 H Respiratory Rate 19 H 17 Respiratory Effort Respiratory Depth Respiratory Pattern Blood Pressure 126/77 H Blood Pressure Mean 93 Pulse Ox 96 97 Oxygen Delivery Method Room Air Room Air Room Air 03/01/22 21:50 03/01/22 23:00 03/01/22 23:00 Temperature 99.6 F H Temperature Source Oral Pulse Rate 106 H 106 H Respiratory Rate 17 18 Respiratory Effort Respiratory Depth Respiratory Pattern Blood Pressure 125/74 H Blood Pressure Mean 91 Pulse Ox 97 97 Oxygen Delivery Method Room Air Room Air 03/02/22 00:00 03/02/22 01:00 03/02/22 01:00 Temperature 99.4 F H 99.4 F H Temperature Source Oral Oral Pulse Rate 103 H 107 H Respiratory Rate 18 18 Respiratory Effort Respiratory Depth Respiratory Pattern Blood Pressure 126/85 H 113/87 H Blood Pressure Mean 98 95 Pulse Ox 94 94 18 Oxygen Delivery Method Room Air Room Air 03/02/22 02:51 03/02/22 05:04 03/02/22 05:54 Temperature 98.9 F 99.0 F 98.0 F Temperature Source Temporal Temporal Temporal Pulse Rate 105 H 98 110 H Respiratory Rate 20 H 19 H 20 H Respiratory Effort Respiratory Depth Respiratory Pattern Blood Pressure 130/88 H 116/80 83/58 L Blood Pressure Mean 102 92 66 Pulse Ox 93 94 97 Oxygen Delivery Method Room Air Room Air Room Air Positive well nourished and well developed General Appearance ED: well developed HEENT Reports moist mucous membranes Neck supple and no JVD Resp normal respiratory effort and clear to auscultation bilaterally Cardio regular rate, regular rhythm and no murmurs GI normal to inspection, nondistended, normoactive bowel sounds and non-tender GI Narrative: Colostomy site is noninflamed. There is no sign of infection over the colostomy site. There is brown stool in the colostomy bag. Palpation: soft Extremity normal to inspection General Extremety ED: Negative for edema or tenderness General Extremity: Negative for edema Neuro oriented x3, CN's II-XII intact bilaterally and no sensory deficits noted Sensorium / Orientation: alert Motor Exam: strength 5/5 throughout Psych mental status grossly normal Skin no rashes or lesions noted <Dr. Michael Avery MD - Last Filed: 03/02/22 07:06> Physical Exam Const Vital Signs: 03/01/22 20:13 03/01/22 20:25 03/01/22 20:26 Temperature 98.6 F 98.6 F Temperature Source Oral Oral Pulse Rate 112 H 112 H Respiratory Rate 18 19 H Respiratory Effort Normal Non-Labored Respiratory Depth Normal Respiratory Pattern Normal Blood Pressure 124/79 H 124/79 H Blood Pressure Mean 94 94 Pulse Ox 94 96 Oxygen Delivery Method Room Air Room Air Room Air 03/01/22 20:32 03/01/22 20:37 03/01/22 20:37 Temperature 98.6 F Temperature Source Oral Pulse Rate 112 H Respiratory Rate 19 H 18 Respiratory Effort Normal Non-Labored Respiratory Depth Respiratory Pattern Normal Blood Pressure 121/76 H Blood Pressure Mean 91 Pulse Ox 97 96 Oxygen Delivery Method Room Air Room Air 03/01/22 21:03 03/01/22 21:03 03/01/22 21:47 Temperature 99.3 F H Temperature Source Oral Pulse Rate 112 H Respiratory Rate 19 H 17 Respiratory Effort Respiratory Depth Respiratory Pattern Blood Pressure 126/77 H Blood Pressure Mean 93 Pulse Ox 96 97 Oxygen Delivery Method Room Air Room Air Room Air 03/01/22 21:50 03/01/22 23:00 03/01/22 23:00 Temperature 99.6 F H Temperature Source Oral Pulse Rate 106 H 106 H Respiratory Rate 17 18 Respiratory Effort Respiratory Depth Respiratory Pattern Blood Pressure 125/74 H Blood Pressure Mean 91 Pulse Ox 97 97 Oxygen Delivery Method Room Air Room Air 03/02/22 00:00 03/02/22 01:00 03/02/22 01:00 Temperature 99.4 F H 99.4 F H Temperature Source Oral Oral Pulse Rate 103 H 107 H Respiratory Rate 18 18 Respiratory Effort Respiratory Depth Respiratory Pattern Blood Pressure 126/85 H 113/87 H Blood Pressure Mean 98 95 Pulse Ox 94 94 18 Oxygen Delivery Method Room Air Room Air 03/02/22 02:51 03/02/22 05:04 03/02/22 05:54 Temperature 98.9 F 99.0 F 98.0 F Temperature Source Temporal Temporal Temporal Pulse Rate 105 H 98 110 H Respiratory Rate 20 H 19 H 20 H Respiratory Effort Respiratory Depth Respiratory Pattern Blood Pressure 130/88 H 116/80 83/58 L Blood Pressure Mean 102 92 66 Pulse Ox 93 94 97 Oxygen Delivery Method Room Air Room Air Room Air [facility] <Dr. Raghu Turpin, DO - Last Filed: 03/02/22 00:57> [facility] Narrative Medical decision making narrative: CBC shows a slight leukocytosis of 11.3. Hemoglobin was 11.3 and hematocrit was 35.8. Platelets were normal. Pro time was 15.6 with an INR of 1.3 and PTT of 38.2. Basic metabolic profile was within normal limits. Liver profile was within normal limits. CTA of the chest was obtained. There are bilateral filling defects in the distal right main pulmonary artery extending into the ascending and descending pulmonary arteries consistent with pulmonary embolism. There are also filling defects within the left ascending and descending pulmonary arteries consistent with pulmonary embolism. This was interpreted by the radiologist and reviewed by myself. Patient was advised of his findings. Patient states that he is unable to take any anticoagulants because it causes internal bleeding from his recent surgery. Patient states that he was at the [facility] recently. Patient states that he had a vena cava filter placed because of blood clots in his legs. Patient was noted to have pulmonary emboli at that time. Patient had CT scan of the chest on 02/16/2022 which showed segmental and subsegmental pulmonary emboli in both lungs. The main pulmonary arteries were normal in caliber. I am attempting to contact the colorectal surgeon who took care of the patient at the [facility] recently. Patient states that every time he stands up and starts to walk he becomes short of breath. Lab Data Attestation: I reviewed the patient's lab results. Labs: Laboratory Results - last 24 hr 03/01/22 03/01/22 03/01/22 20:23 20:23 20:23 WBC 11.3 H RBC 3.75 L Hgb 11.3 L Hct 35.8 L MCV 95.5 H MCH 30.1 MCHC 31.6 L RDW Std Deviation 60.0 H RDW Coeff of [place]ien[place] 17.5 H Plt Count 398 MPV 9.6 Immature Gran % (Auto) 1.900 H Neut % (Auto) 75.2 H Lymph % (Auto) 10.1 L [place] % (Auto) 10.7 H Eos % (Auto) 1.6 Baso % (Auto) 0.5 Absolute Neuts (auto) 8.5 H Absolute Lymphs (auto) 1.14 Nucleated RBC % 0 PT 15.6 H INR 1.3 APTT 30.2 Sodium 138 Potassium 3.8 Chloride 107 Carbon Dioxide 25.0 Anion Gap 6 BUN 17 Creatinine 0.95 Estim Creat Clear Calc 63.43 Est GFR (MDRD) Af Amer 101 Est GFR (MDRD) Non-Af 83 BUN/Creatinine Ratio 18.0 Glucose 125 H Calcium 8.1 L Total Bilirubin Direct Bilirubin AST ALT Alkaline Phosphatase Total Protein Albumin Globulin 03/01/22 20:23 WBC RBC Hgb Hct MCV MCH MCHC RDW Std Deviation RDW Coeff of [place] Plt Count MPV Immature Gran % (Auto) Neut % (Auto) Lymph % (Auto) [place] % (Auto) Eos % (Auto) Baso % (Auto) Absolute Neuts (auto) Absolute Lymphs (auto) Nucleated RBC % PT INR APTT Sodium Potassium Chloride Carbon Dioxide Anion Gap BUN Creatinine Estim Creat Clear Calc Est GFR (MDRD) Af Amer Est GFR (MDRD) Non-Af BUN/Creatinine Ratio Glucose Calcium Total Bilirubin 1.00 Direct Bilirubin 0.28 AST 67 H ALT 46 Alkaline Phosphatase 109 Total Protein 6.9 Albumin 3.0 L Globulin 3.9 Radiography Diagnostic Testing: Clinical Impression(s) from Imaging Studies Chest CTA 03/01/22 22:04 IMPRESSION: Positive for bilateral pulmonary emboli. Electronically Signed: Lui White MD at 23:22 EST , ADDENDUM: 03/01/22 2333 IMPRESSION: Positive for bilateral pulmonary emboli. N.B. : The above Results were Read Back by Lui White MD to Raghu Turpin DO, and understanding confirmed on 03/01/2022 23:26:09 (ET). Electronically Signed: Lui White MD at 23:22 EST , <Dr. Michael Avery MD - Last Filed: 03/02/22 07:06> [facility] Lab Data Labs: Laboratory Results - last 24 hr 03/01/22 03/01/22 03/01/22 20:23 20:23 20:23 WBC 11.3 H RBC 3.75 L Hgb 11.3 L Hct 35.8 L MCV 95.5 H MCH 30.1 MCHC 31.6 L RDW Std Deviation 60.0 H RDW Coeff of [place] 17.5 H Plt Count 398 MPV 9.6 Immature Gran % (Auto) 1.900 H Neut % (Auto) 75.2 H Lymph % (Auto) 10.1 L [place] % (Auto) 10.7 H Eos % (Auto) 1.6 Baso % (Auto) 0.5 Absolute Neuts (auto) 8.5 H Absolute Lymphs (auto) 1.14 Nucleated RBC % 0 PT 15.6 H INR 1.3 APTT 30.2 Sodium 138 Potassium 3.8 Chloride 107 Carbon Dioxide 25.0 Anion Gap 6 BUN 17 Creatinine 0.95 Estim Creat Clear Calc 63.43 Est GFR (MDRD) Af Amer 101 Est GFR (MDRD) Non-Af 83 BUN/Creatinine Ratio 18.0 Glucose 125 H Calcium 8.1 L Total Bilirubin Direct Bilirubin AST ALT Alkaline Phosphatase Total Protein Albumin Globulin 03/01/22 20:23 WBC RBC Hgb Hct MCV MCH MCHC RDW Std Deviation RDW Coeff of [place]ien[place] Plt Count MPV Immature Gran % (Auto) Neut % (Auto) Lymph % (Auto) Gaston % (Auto) Eos % (Auto) Baso % (Auto) Absolute Neuts (auto) Absolute Lymphs (auto) Nucleated RBC % PT INR APTT Sodium Potassium Chloride Carbon Dioxide Anion Gap BUN Creatinine Estim Creat Clear Calc Est GFR (MDRD) Af Amer Est GFR (MDRD) Non-Af BUN/Creatinine Ratio Glucose Calcium Total Bilirubin 1.00 Direct Bilirubin 0.28 AST 67 H ALT 46 Alkaline Phosphatase 109 Total Protein 6.9 Albumin 3.0 L Globulin 3.9 Radiography Diagnostic Testing: Clinical Impression(s) from Imaging Studies Chest CTA 03/01/22 22:04 IMPRESSION: Positive for bilateral pulmonary emboli. Electronically Signed: Lui White MD at 23:22 EST , ADDENDUM: 03/01/22 2333 IMPRESSION: Positive for bilateral pulmonary emboli. N.B. : The above Results were Read Back by Lui White MD to Raghu Turpin DO, and understanding confirmed on 03/01/2022 23:26:09 (ET). Electronically Signed: Lui White MD at 23:22 EST , Rhythm Strip Rhythm Strip: Sinus Rhythm Rate: 97 Ectopy: None EKG Initial EKG: Attestation: I personally reviewed and interpreted this EKG as follows: Interpretation: Sinus Rhythm and No Acute Injury Pattern Comments: nml EKG w/o block. No acute repol abn. Treatment and Re-Evaluation Narrative: Patient checked out to me for final disposition. Imaging here shows bilateral central pulmonary emboli with no saddle embolus and with good enhancement of pulmonary arteries distal to the filling defects seen. The concern is that the patient has filling defects in the main distal right pulmonary artery, and we are comparing this to a report from [facility] without being able to see the imaging from 02/16/2022 that does not indicate that there was involvement of the main pulmonary artery on either side. The concern is the possibility that the IVC filter is not working properly or feeling, and the patient is either throwing more clots or having the clot burden that was there extend. This could be causing him to have worsening symptoms if he has less flow throughout the pulmonary arterial tree. While at rest the patient's vital signs are stable, his resting tachycardia has improved now to a rate in the mid-high 90s, and he is not dyspneic at rest and having no chest pain. There are no radiographic or electrocardiographic signs of heart strain. Discussed with [facility] medicine quarterback who accepts the patient at this time, and I sent images for them to have radiology/vascular evaluate and compare. About 6 AM, patient had dropped his blood pressure to 83/58, nursing rechecked it several times including with a manual. Patient was doing well clinically without any changes in his symptoms which basically are nonexistent while he was resting. He did not become more tachycardic and he did not become hypoxic, at 97% on room air. He was given a liter of fluid, and on reevaluation his blood pressure is 105/78, and at that point EMS was here to transport him. Discharge Plan Triage Chief Complaint: Shortness of Breath ED Provider: Raghu Turpin Dx/Rx/DC Orders Clinical Impression: Bilateral pulmonary embolism, Near syncope, Dyspnea on exertion Prescriptions: No Action tamsulosin 0.4 mg capsule 0.4 mg PO DAILY acetaminophen 500 mg tablet 1,000 mg PO Q6H PRN (Reason: Pain) coenzyme Q10 [Co Q-10] 50 mg capsule 100 mg PO DAILY Label Comments: SUPPLIMENT cholecalciferol (vitamin D3) 50 mcg (2,000 unit) capsule 4,000 unit PO DAILY PRN (Reason: vitamin) aspirin [Aspir-81] 81 mg Tablet,Delayed Release (Dr/Ec) 81 mg PO DAILY atorvastatin 40 mg tablet 40 mg PO DAILY Qty: 90 3RF metoprolol tartrate 25 mg tablet 25 mg PO BID Qty: 180 3RF Primary Care Provider: Meme Keith Referrals: Meme Keith MD [Primary Care Provider] - Disposition Disposition: Acute Care Hospital Discharge Location: [facility] Discharge Date/Time: 03/02/22 07:01
[2022-03-02] VITALS: BP 126/85; PULSE 103; RESP 18; TEMP 37.4; O2SAT 94
[2022-03-02 01:00] VITALS: BP 113/87; PULSE 107; RESP 18; TEMP 37.4; O2SAT 18; O2SAT 94
[2022-03-02 02:51] VITALS: BP 130/88; PULSE 105; RESP 20; TEMP 37.2; O2SAT 93
--- NOTE | 2022-03-02 03:23 | EKG12_ITS ---
Test Reason : FALL Blood Pressure : / mmHG Vent. Rate : 097 BPM Atrial Rate : 097 BPM P-R Int : 154 ms QRS Dur : 086 ms QT Int : 374 ms P-R-T Axes : 028 029 057 degrees QTc Int : 474 ms Normal sinus rhythm Normal ECG Confirmed by JORDAN VARGAS, HELEN ([id number]), purchasing expeditor DEBORAH ELLSWORTH ([id number]) on 03/03/2022 1:26:46 PM Referred By: RITIKA Confirmed By:HELEN ORTEGA MD
--- NOTE | 2022-03-02 04:48 | NURSING ---
GOT BED NUMBER [id number], CALLED [facility] ETA 7AM [facility]
[2022-03-02 05:04] VITALS: BP 116/80; PULSE 98; RESP 19; TEMP 37.2; O2SAT 94
[2022-03-02] MEDS: Acetaminophen 500 MG Tablet 1000 MG PO (05:52)
[2022-03-02 05:54] VITALS: BP 83/58; PULSE 110; RESP 20; TEMP 36.7; O2SAT 97
[2022-03-02] MEDS: 0.9% Normal Saline 1,000 ML 999 ML IV (06:04)
[2022-03-02 06:35] VITALS: BP 105/78; PULSE 994; RESP 18; O2SAT 95
--- NOTE | 2022-03-02 06:35 | NURSING ---
attempted to call report to [facility], awaiting call back
== END 2022-03-02 07:01 | disposition short-term general hospital (02) ==
PROVIDERS: Emergency Provider Emergency Medicine; PCP Internal Medicine; Visit Provider Emergency Medicine
DX: I26.99 Other pulmonary embolism without acute cor pulmonale (principal); E78.5 Hyperlipidemia, unspecified; I10 Essential (primary) hypertension; R55 Syncope and collapse; I25.10 Atherosclerotic heart disease of native coronary artery without angina pectoris; R06.02 Shortness of breath; R07.9 Chest pain, unspecified; Z87.891 Personal history of nicotine dependence
CPT/HCPCS: 71275; 80048; 80076; 85025; 85610; 85730; 87428; 93005; 94760; 96360; 99283; J7030; Q9967; A4216

== ENCOUNTER → 2022-04-02 | Outpatient (CLI) | payer MEDICARE, OTHER, SELFPAY ==
--- NOTE | 2022-04-02 10:00 | CDU_ITS ---
Reason For Study: carotid stenosis Rt. Velocities/BP Lt. Velocities/BP Prox CCA 62.6/20.1 cm/sec. Prox CCA 63.0/20.1 cm/sec. Mid CCA 55.1/15.4 cm/sec. Mid CCA 57.5/17.9 cm/sec. Dist CCA 52.2/16.3 cm/sec. Dist CCA 55.3/16.8 cm/sec. Prox ICA 58.1/18.8 cm/sec. Prox ICA 60.7/17.3 cm/sec. Mid ICA 54.4/22.5 cm/sec. Mid ICA 66.4/23.9 cm/sec. Dist ICA 69.7/24.6 cm/sec. Dist ICA 80.6/20.1 cm/sec. Rt. ICA/CCA = 1.3. Lt. ICA/CCA = 1.4. Prox ECA 99.8/5.3 cm/sec. Prox ECA 45.6/6.0 cm/sec. Rt. Vert. 58.6/16.8 cm/sec. Lt. Vert. 33..3/17.2 cm/sec. Right Extracranial There is heterogeneous, irregular atherosclerotic plaque noted in the right common carotid artery. There is heterogeneous, irregular atherosclerotic plaque noted in the right internal carotid artery. There is heterogeneous, irregular atherosclerotic plaque noted in the right external carotid artery. Antegrade flow is noted in the right vertebral artery. Left Extracranial There is heterogeneous, irregular atherosclerotic plaque noted in the left common carotid artery. There is heterogeneous, irregular atherosclerotic plaque noted in the left internal carotid artery. There is heterogeneous, irregular atherosclerotic plaque noted in the left external carotid artery. Abnormal waveform morphology noted in the left vertebral artery. Procedure Carotid Duplex [id number]. This is a Carotid Duplex examination using B-mode, color flow and specral Doppler. The exam was diagnostic. Exam performed in department. VL/Carotid Duplex Ultrasound Interpretation Summary Irregular calcific plaque of the proximal right internal carotid artery with le ss than 50% stenosis. Plaque shadowing is noted. Less than 50% stenosis right external carotid artery Irregular calcific plaque at the proximal left internal carotid artery with les s than 50% stenosis Less than 50% stenosis left external carotid artery Patent and antegrade right vertebral Bidirectional flow left vertebral suggesting possible proximal subclavian steno sis. Previous abnormality involving the right external carotid not duplicated on [facility] exam. This is compared to a previous examination of May 20, 2020 Ordering Physician: Bhavna Deutsch Performed By: Darrel Hill RVT
--- NOTE | 2022-04-02 10:58 | ART_ITS ---
Reason For Study: PAD Procedure A bilateral lower extremity continuous wave Doppler with analog waveform analysis and ankle brachial indexes. Left Segmental Pressures Left brachial= 115mmHg. Left posterior tibial artery = 120mmHg. Left dorsalis pedis artery = 142mmHg. The left dorsalis pedis waveforms are triphasic. The left posterior tibial artery waveforms are triphasic. Right Segmental Pressures Right brachial= 115mmHg. Right posterior tibial artery = 150mmHg. Right dorsalis pedis artery = 158mmHg. The right dorsalis pedis waveforms are triphasic. The right posterior tibial artery waveforms are triphasic. Indices The right ankle brachial index by the dorsalis pedis is 1.37. The right ankle brachial index by the posterior tibial artery is 1.3. The left ankle brachial index by the dorsalis pedis is 1.23. The left ankle brachial index by the posterior tibial artery is 1.04. VL/Ankle Brachial Index Interpretation Summary Normal right lower extremity posterior tibialis and dorsalis pedis ankle-brachi al indices of 1.3 and 1.37 respectively with normal triphasic Doppler waveforms Normal left lower extremity posterior tibialis and dorsalis pedis ankle-brachia l indices of 1.04 and 1.23 respectively with normal triphasic Doppler waveforms Ordering Physician: Carlos Trujillo Referring Physician: LUKE CARDONA Performed By: Darrel Hill RVT
== END | disposition home or self-care (01) ==
PROVIDERS: PCP Internal Medicine; Visit Provider Physician Assistant Medical
DX: I65.23 Occlusion and stenosis of bilateral carotid arteries (principal); I73.9 Peripheral vascular disease, unspecified
CPT/HCPCS: 93880; 93922

== ENCOUNTER 2022-07-17 17:20 | Emergency (ER) | payer OTHER, SELFPAY ==
[2022-07-17 17:20] VITALS: BP 122/72; PULSE 85; RESP 16; TEMP 36.8; O2SAT 100; BMI 26.8
[2022-07-17] MEDS: Enoxaparin 80 MG/0.8 ML Syringe SC (18:19)
--- NOTE | 2022-07-17 18:42 | EDS_ITS ---
HPI History of Present Illness Chief Complaint: Lower Extremity Injury Informant: patient Narrative Narrative: Mejia is a 72-year-old male with complex history including rectal cancer with ileostomy with postoperative course that was complicated by an intra-abdominal hemorrhage and then subsequently he developed significant DVT and PE requiring thrombectomy. This was in March of this year. Patient had been discharged from [facility] in March on Lovenox and then bridged to Eliquis after a month or so. For the past 2 weeks has had increased swelling of his left leg and had an ultrasound performed outpatient today which showed an acute DVT of t he left common femoral vein. Patient denies any associated numbness or tingling. Patient was sent to the ER for further evaluation is now Wednesday evening. Patient states he has not missed a single dose of his Eliquis. He is not sure if he is ever been seen by shuttle bus driver for his clotting. His prior clots were thought to be provoked from his hospitalization. Patient does have an IVC filter. He follows with a vascular surgeon through [facility] in [place], he believes it is Dr. Rey. No other complaints at this time. [facility] Medical History Atherosclerotic heart disease of [place] coronary artery without angina pectoris Bilateral carotid artery stenosis CAD (coronary artery disease) Dilated aortic root Dyslipidemia Essential hypertension Gastric artery aneurysm GERD (gastroesophageal reflux disease) HTN (hypertension) Hypoacusis Ileostomy present Intra abdominal hemorrhage Meniere's disease Old myocardial infarction Peripheral vascular disease Premature ventricular contraction Presence of stent in coronary artery (~12/22/16) Pulmonary embolism Rectal cancer Subclavian artery stenosis, left 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 Home Medications coenzyme Q10 50 mg capsule (Co Q-10) 100 mg PO DAILY vitamin 03/04/18 [History Last Taken Unknown] cholecalciferol (vitamin D3) 50 mcg (2,000 unit) capsule 4,000 unit PO DAILY PRN vitamin 07/21/19 [History Last Taken Unknown] atorvastatin 40 mg tablet 40 mg PO DAILY #90 tabs 05/30/21 [Rx Last Taken Unknown] acetaminophen 500 mg tablet 1,000 mg PO Q6H PRN Pain 02/26/22 [History Last Taken Unknown] tamsulosin 0.4 mg capsule 0.4 mg PO DAILY 02/26/22 [History Last Taken Unknown] aspirin 81 mg tablet,delayed release 81 mg PO DAILY 02/27/22 [History Last Taken Unknown] enoxaparin 80 mg/0.8 mL subcutaneous syringe (Lovenox) 80 mg (0.8 mL) subcut Q12H #24 mL 07/17/22 [Rx Last Taken Unknown] warfarin 5 mg tablet 5 mg PO DAILY #7 tabs 07/17/22 [Rx Last Taken Unknown] Allergy/AdvReac Type Severity Reaction Status Date / Time clindamycin Allergy PT UNABLE Verified 07/17/22 17:22 TO RESPOND-NEEDS F/U cat dander [cats] AdvReac PT UNSURE Verified 07/17/22 17:22 OF REACTION codeine AdvReac Upset Verified 07/17/22 17:22 Stomach Family History Father CAD (coronary artery disease) Myocardial infarction, Onset Age: 45 Mother Carotid artery stenosis Surgical History History of tonsillectomy History of transurethral resection of prostate (~09/2016) Presence of coronary angioplasty implant and graft (~12/22/16) S/P CABG (coronary artery bypass graft) (~09/16/98) S/P PTCA (percutaneous transluminal coronary angioplasty) (~12/22/16) Social History Smoking Status: Former smoker how long ago did patient quit smokin alcohol intake: current details: occasional ROS ROS ED Constitutional Constitutional ED: Denies chills or fever(s) Cardiovascular Cardiovascular: Denies chest pain Respiratory/Chest Respiratory/Chest: Denies cough or dyspnea Gastrointestinal Gastrointestinal: Denies abdominal pain, nausea or vomiting Musculoskeletal Musculoskeletal: Reports other Details: left leg swelling ; Denies arthralgias or myalgias Integumentary Denies rash Neurologic Neurologic: Denies headache(s), paresthesias or weakness Psychiatric Psychiatric: Denies anxiety EXAM Physical Exam Const Vital Signs: 07/17/22 17:20 Temperature 98.2 F Temperature Source Temporal Pulse Rate 85 Respiratory Rate 16 Blood Pressure 122/72 H Blood Pressure Mean 88 Pulse Ox 100 Oxygen Delivery Method Room Air Positive well nourished General Appearance ED: NAD HEENT Reports moist mucous membranes Neck full ROM and supple Chest Wall inspection of chest normal Resp normal respiratory effort and clear to auscultation bilaterally Cardio regular rate and regular rhythm Extremity full ROM Extremity Narrative: Patient has bilateral pitting edema however left is significantly worse than the right. Increased diameter of the calf compared to the right. Compartments are soft. No palpable mass. No palpable cords. General Extremety ED: Yes edema General Extremity: edema left Neuro oriented x3 and moves all extremities Sensorium / Orientation: alert Skin no wounds Rashes: no rashes MDM MDM MDM Narrative Medical decision making narrative: Patient is evaluated for DVT of the left lower extremity in the setting of chronic Eliquis therapy. Patient is on therapeutic Eliquis but still had a breakthrough DVT. He has an IVC filter so low suspicion for PE. He has no other symptoms besides swelling of his leg. He does not have signs of compartment syndrome or vascular compromise based on physical exam. Wet read from vascular shows a left common femoral vein dilation with noncompressibility and minimal blood flow with compression and blood flow of the GSV, FV, pop the and distal vessels. Case is discussed with vascular surgery on-call, Dr. Reynolds. He feels that since patient is relatively asymptomatic and already has an IVC he can be put on therapeutic Lovenox and bridged to Coumadin over the weekend. Does not think he needs to be admitted for IV heparin. Patient is agreeable with this plan of care. Patient is started on Lovenox in the ER and given first dose of Coumadin. I did speak with on-call physician for [facility], Dr. Meneses, Who is agreeable this plan of care. States patient will need an INR on Wednesday. Patient wanted to call the office to get this scheduled. He will put a note in for the patient's chart. Discharge reviewed with the patient personally by myself. This patient is otherwise asymptomatic with no chest pain, lightheadedness or dizziness I do not think repeat labs are needed at this time. His labs from [facility] on 07/06/22 were largely normal including GFR of 65 and platelets of 280. Management Discussion w/another healthcare provider: Cryptanalyst and PCP Discharge Plan Triage Chief Complaint: Lower Extremity Injury ED Provider: Nurys Alonso Dx/Rx/DC Orders Clinical Impression: Deep vein thrombosis (DVT) of femoral vein of left lower extremity, Failure of outpatient treatment, DVT, recurrent, lower extremity, acute Instructions: Lovenox Prefilled Syringe 80 mg/0.8 mL, What to Know When Taking?Warfarin, DVT Dc Prescriptions: New enoxaparin [Lovenox] 80 mg/0.8 mL syringe 80 mg subcut Q12H Qty: 24 0RF warfarin 5 mg tablet 5 mg PO DAILY Qty: 7 0RF No Action tamsulosin 0.4 mg capsule 0.4 mg PO DAILY acetaminophen 500 mg tablet 1,000 mg PO Q6H PRN (Reason: Pain) coenzyme Q10 [Co Q-10] 50 mg capsule 100 mg PO DAILY Label Comments: SUPPLIMENT cholecalciferol (vitamin D3) 50 mcg (2,000 unit) capsule 4,000 unit PO DAILY PRN (Reason: vitamin) aspirin [Aspir-81] 81 mg Tablet,Delayed Release (Dr/Ec) 81 mg PO DAILY atorvastatin 40 mg tablet 40 mg PO DAILY Qty: 90 3RF Primary Care Provider: Meme Keith Referrals: Raghu Reynolds MD [Med Staff - Active Staff] - 3-5 Days Meme Keith MD [Primary Care Provider] - Activity Restrictions/Additional Instructions: Stop taking your Eliquis. You will be started on Coumadin but need to be bridged with Lovenox until your Coumadin level is therapeutic (this is called an INR level). Take the Lovenox shot twice a day with your next dose tomorrow morning. Take the Coumadin (warfarin) once a day. Your next dose of that will be tomorrow. Try to take it at the same time every day. Please call your primary care doctor on Wednesday to arrange for an INR test that day. They will be able to order it for you. Call them first thing in the morning. I do recommend you follow-up with vascular surgery. Our [place] vascular surgeon (Dr. Reynolds) said he be happy to see you however if you like to follow-up with your [facility] vascular surgeon please call them on Wednesday as well. If you develop any bleeding or have further concerns or issues please return to the emergency room. Your Coumadin levels can be affected by your diet. As we discussed, please try to eat the same amount of greens and vegetables every day and not have variations in your diet. Disposition Disposition: Home, Self Care Discharge Date/Time: 07/17/22 19:11
== END 2022-07-17 19:11 | disposition home or self-care (01) ==
PROVIDERS: Emergency Provider Emergency Medicine; PCP Internal Medicine; Visit Provider Emergency Medicine
DX: I82.412 Acute embolism and thrombosis of left femoral vein (principal); Z93.2 Ileostomy status; Z87.891 Personal history of nicotine dependence; I10 Essential (primary) hypertension; I25.10 Atherosclerotic heart disease of native coronary artery without angina pectoris; E78.5 Hyperlipidemia, unspecified; Z79.01 Long term (current) use of anticoagulants; Z91.199 Patient's noncompliance with other medical treatment and regimen due to unspecified reason
CPT/HCPCS: 96372; 99283

== ENCOUNTER → 2022-07-17 | Outpatient (CLI) | payer MEDICARE, OTHER, SELFPAY ==
--- NOTE | 2022-07-17 15:17 | VDLE_ITS ---
Reason For Study: LLE Edema RIGHT LEFT CFV is compressible, spontaneous, phasic, GSV is normal. competent and demonstrates normal LT CFV is dilated and NON COMPRESSIBLE with augmentation. minimal blood flow, continuous flow noted Procedure LT FV is compressible with continuous flow This is a venous duplex using B-mode, color noted flow and spectral Doppler. Lt PopV is compressible with continuous flow Exam performed in department. noted. A preliminary report was called and/or faxed T/P Trunk is compressible. to Saba FLORES. PTV is compressible. LT PerV is compressible. VL/Venous Duplex US, Unilateral Interpretation Summary Acute deep vein thrombosis is noted in the left common femoral vein. Left femoral and popliteal veins patent with abnormal flow pattern Ordering Physician: Shannon Bello Referring Physician: Meme Keith Performed By: Jie Trujillo, RDCS, RVT
== END | disposition home or self-care (01) ==
LOC: CVS 15:11
PROVIDERS: PCP Internal Medicine; Referring Provider Nurse Practitioner; Visit Provider Nurse Practitioner
DX: R60.0 Localized edema (principal); M79.605 Pain in left leg
CPT/HCPCS: 93971

== ENCOUNTER → 2023-06-04 | Outpatient (CLI) | payer MEDICARE, OTHER, SELFPAY ==
--- NOTE | 2023-06-04 12:48 | ART_ITS ---
Reason For Study: LLE Claudication Procedure A bilateral lower extremity continuous wave Doppler with analog waveform analysis,segmental pressures,and ankle brachial indexes with exercise. Left Segmental Pressures Left brachial= 113mmHg. Left thigh = 162mmHg. Left calf = 112mmHg. Left posterior tibial artery = 134mmHg. Left dorsalis pedis artery = 126mmHg. Left digit = 104 mmHg. The left posterior tibial artery waveforms are triphasic. The left dorsalis pedis waveforms are triphasic. Right Segmental Pressures Right brachial= 137mmHg. Right posterior tibial artery = 151mmHg. Right dorsalis pedis artery = 163mmHg. Right digit = 130 mmHg. The right posterior tibial artery waveforms are triphasic. The right dorsalis pedis waveforms are triphasic. Indices The right ankle brachial index by the posterior tibial artery is 151. The right ankle brachial index by the dorsalis pedis is 163. The right digital-brachial index is 130. The right post exercise ankle brachial index is 1.34. The left ankle brachial index by the posterior tibial artery is 134. The left ankle brachial index by the dorsalis pedis is 126. The left digital-brachial index is 104. The left post exercise ankle brachial index is 1.02. VL/Lower Ext Art Exam w/ Exercise Interpretation Summary Right BRENDON 1.19, normal. TBI and Doppler/PVR waveforms of the right leg normal a t rest. Right lower extremity exhibits normal response to exercise. Left BRENDON 0.98, mild arterial insufficiency. Doppler/PVR waveforms and segmental pressures reveal distal SFA/popliteal disease Left lower extremity exhibits no change in response to exercise. Ordering Physician: Raghu Reynolds Referring Physician: Meme Keith Performed By: Saúl Pearson, RVJassi
--- NOTE | 2023-06-04 12:48 | ART_ITS ---
Reason For Study: LUE Claudication Procedure A bilateral upper extremity continuous wave Doppler with analog waveform analysis and segmental pressures. W/ Exercise. Left Segmental Pressures Left brachial= 104mmHg. Left forearm by way of the radial artery = 107mmHg. Left radial= 122mmHg. Left ulnar= 113mmHg. Left digit = 96 mmHg. The left brachial waveforms are biphasic. The left radial waveforms are biphasic. The left ulnar waveforms are monophasic. Right Segmental Pressures Right brachial= 125mmHg. Right forearm pressure by way of the radial artery = 124mmHg. Right radial= 166mmHg. Right ulnar= 147mmHg. Right digit = 115 mmHg. The right brachial waveforms are triphasic. The right radial waveforms are triphasic. The right ulnar waveforms are triphasic. Indices The right wrist-brachial index is 1.33. The right digital-brachial index is 0.92. The right post exercise wrist brachial index is 1.20. The left wrist-brachial index is 0.98. The left digital- brachial index is 0.77. The left post exercise wrist brachial index is 0.72. VL/Upper Extremity Arterial Study Interpretation Summary Right wrist-brachial index 1.33 , normal. Doppler/PVR waveforms of the right ar m normal at rest. Right upper extremity exhibits normal response to exercise. Left wrist brachial index 0.98, mild arterial insufficiency. Doppler/PVR wavefo len and segmental pressures reveal axillary-subclavian disease. Left upper extremity with abnormal response to exercise and post exercise wrist brachial index in the moderate category. Ordering Physician: Raghu Reynolds Referring Physician: Meme Keith Performed By: Saúl Pearson RVT
== END | disposition home or self-care (01) ==
PROVIDERS: PCP Internal Medicine; Referring Provider Surgery Trauma Surgery; Visit Provider Surgery Trauma Surgery
DX: I73.9 Peripheral vascular disease, unspecified (principal)
CPT/HCPCS: 93923; 93924

== ENCOUNTER 2023-06-11 18:33 | Emergency (ER) | payer MEDICARE, OTHER, SELFPAY ==
[2023-06-11 18:34] VITALS: BP 128/101; PULSE 96; RESP 20; TEMP 35.4; O2SAT 98; BMI 32.3
[2023-06-11 18:45] VITALS: BP 128/101; PULSE 93; RESP 14; O2SAT 98
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
--- NOTE | 2023-06-11 18:50 | ED.RN ---
THIS RN CALLED HIS RAMBO. RAMBO STATES SHE NEEDS TO GET READY FIRST AND THEN SHE WILL BE UP TO BE WITH HER .
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
[2023-06-11 19:12] VITALS: BP 156/94; PULSE 92; RESP 20; O2SAT 96
--- NOTE | 2023-06-11 19:39 | ED.RN ---
at bedside and patient wanting to leave, trying to leave room. This nurse and Dr. Rangel to bedside. Dr. Rangel talks to , reports that her initial read of CT shows no obvious injury, but official read is not back yet. states she is comfortable taking him home, patient is able to ambulate around room unassisted without difficulty. Discharge papers given to , this nurse reports to per Dr. Rangel that if anything is abnormal on official CT read, ER will contact to bring patient back. Patient ambulates to 's car without difficulty.
== END 2023-06-11 19:44 | disposition home or self-care (01) ==
PROVIDERS: Emergency Provider Emergency Medicine; PCP Internal Medicine; Visit Provider Emergency Medicine
DX: S09.90XA Unspecified injury of head, initial encounter (principal); S00.81XA Abrasion of other part of head, initial encounter; Z87.891 Personal history of nicotine dependence; F10.129 Alcohol abuse with intoxication, unspecified; Y04.0XXA Assault by unarmed brawl or fight, initial encounter; Y92.59 Other trade areas as the place of occurrence of the external cause; Z79.82 Long term (current) use of aspirin; I25.10 Atherosclerotic heart disease of native coronary artery without angina pectoris; I10 Essential (primary) hypertension; K21.9 Gastro-esophageal reflux disease without esophagitis; E78.5 Hyperlipidemia, unspecified
CPT/HCPCS: 70450; 99282

== ENCOUNTER 2023-07-08 07:39 | Day surgery (SDC) | payer MEDICARE, OTHER, SELFPAY ==
[2023-07-07 13:51] VITALS: BMI 30.3
[2023-07-08 07:58] LABS: Absolute Lymphocyte Count 1.22 X10^3/uL (0.83-4.51); Absolute Neutrophil Count 3.5 X10^3/uL (2.0-7.7); Basophil# 0.06 X10^3/uL; Eosinophils% 5.2 % (0-5); Hematocrit 40.7 % (40-54); Hemoglobin 12.9 g/dL (13.0-16.5); Lymphocyte # 1.22 X10^3/ul (0.83-4.51); Lymphocyte % 21.1 % (19-41); Mean Corp Hgb Conc 31.7 g/dL (32-36); Mean Corpuscular Hgb 31.2 pg (27.0-32.0); Mean Corpuscular Volume 98.3 fL (80-94); Mean Platelet Vol. 9.9 fl (6.2-12.0); Monocyte# 0.65 X10^3/uL; Monocyte% 11.3 % (0-10); NRBC Flagged by Analyzer 0 % (0-5); Neutrophil # 3.52 X10^3/uL (2.7-7.7); Neutrophil % 61.1 % (47-70); Platelet Count 236 K/mm3 (150-450); RBC Distribution Width CV 14.2 % (11.6-14.6); RBC Distribution Width SD 51.8 fl (35.1-43.9); Red Blood Count 4.14 M/mm3 (4.6-6.2); White Blood Count 5.8 K/mm3 (4.4-11.0)
[2023-07-08 08:31] LABS: Anion Gap 3 (5-15); BUN 19 mg/dL (7-18); BUN/Creat Ratio 14.4 RATIO (10-20); Calcium,Total 8.6 mg/dL (8.5-10.1); Chloride 115 mmol/L (98-107); Creatinine, Serum 1.32 mg/dL (0.70-1.30); EST Glomerular Filtration Rate 56 mL/min (>60); Est Glom Filt Rate - Afr Amer 68 mL/min (>60); Estimated Creatinine Clearance 51.03 ml/min; Glucose 99 mg/dL (74-106); Potassium 3.9 mmol/L (3.5-5.1); Sodium Level 142 mmol/L (136-145)
--- NOTE | 2023-07-08 10:44 | OP.PCM_ITS ---
Report of Operation Date of Procedure: 07/08/23 Pre-Operative Diagnosis: left arm claudication Post-Operative Diagnosis: same, subclavian origin stenosis Surgery/Procedure Performed:: left arm angiogram IVUS aorta, subclavian/axillary, brachial, radial arteries angioplasty stent left subclavian artery Surgeon: Raghu Reynolds Type of Anesthesia: Local and Sedation,Conscious Estimated Blood Loss (mL): 4 Description of Procedure: HPI: Patient is a 73-year-old male with a left upper extremity claudication symptoms and significant blood pressure discrepancy. He also has a history of a left VIKKI graft for coronary bypass procedure. He had noninvasive vascular studies which suggested significant arterial insufficiency of the left upper extremity. He is taken now for arteriogram with possible invention. Description of procedure: Upon obtaining form consent and verification correct patient procedure site patient taken to the [facility] where he was positioned pre pped and draped in usual fashion. Time was performed conscious sedation ministered Versed and fentanyl. Skin overlying the left radial artery was anesthetized 1% lidocaine the vessel accessed with a micropuncture needle wire. This then exchanged out for the 6 [place] slender sheath which was then infused with heparin verapamil and nitro solution. Through the slender sheath a glide catheter advanced traversing the radial, brachial, axillary and subclavian arteries. Once the catheter was positioned at the proximal subclavian artery hand-injection subtraction angiography was performed which revealed high-grade calcified stenosis of the proximal segment of the subclavian artery with minimal reflux of contrast into the aorta. Using the glide catheter and an 014 wire we were able to traverse the occlusion advancing our wire into the aortic arch and ultimately into the ascending aorta. The catheter was then advanced beyond the lesion hand-injection angiography utilized to confirm position within the true lumen of the large. Patient then heparinized allowed to circulate for 3 minutes and 2014 wire was advanced into the sending aorta. The catheter was then drawn and the intravascular ultrasound probe was advanced over the wire and recorded pullback performed of the aortic arch, subclavian artery axillary artery, brachial artery, radial artery. This revealed a greater than 80% stenosis of the ostia of the subclavian artery with the distal extent of the lesion just proximal to the VIKKI origin with no involvement via the VIKKI origin over the vertebral artery origin. This also revealed that there is no other significant occlusive disease throughout the vessels visualized in the recorded pullback. Ultrasound probe was also advanced subclavian artery ostia as well as the take off of the VIKKI marked for reference. We also obtained reference vessel sizes and a Glez Herculink balloon expandable stent 7 x 15 mm brought in field prep for lay out carpenter instructions. This was then advanced over the wire position a small overlap into the aortic lumen with sufficient to cover the lesion without encroaching on the VIKKI origin. Balloon was then inflated to nominal for 30 seconds then later withdrawn with satisfactory stent positioning. The delivery system was then withdrawn and the glide catheter was advanced over the wire subtraction angiography performed revealing satisfactory stent wall apposition with no extravasation dissection and brisk contrast refluxing the aorta and transit into the outflow subclavian. Plus revealed patent VIKKI and vertebral artery with no evidence of disruption. Intravascular ultrasound probe was then advanced over the wire and utilized to reassess the vessel stent positioning. This confirmed satisfactory positioning with trivial amount of mid stent residual stenosis due to calcified lesion that did not fully expand. However this suggested less than 30% residual stenosis and no further intervention was undertaken. Wires and catheters then withdrawn and the radial band placed in the sheath withdrawn. Patient then taken recovery room for bedrest and radial band management prior to discharge home. Grafts/Implants Used: Glez Herculink 7x15 stent
--- NOTE | 2023-07-09 21:09 | PCM.HP.STD ---
HPI - General HPI Narrative JAI MOREJON, is a 73 M who presents with left arm claudication, significant blood pressure discrepancy. Prior CTA had artifact from contrast bolus in the subclavian vein. He presents for angiogram with possible intervention. He also has history of prior CABG with MURPHY graft. [facility] Medical History Atherosclerotic heart disease of [place] coronary artery without angina pectoris Bilateral carotid artery stenosis CAD (coronary artery disease) Dilated aortic root Dyslipidemia Essential hypertension Gastric artery aneurysm GERD (gastroesophageal reflux disease) HTN (hypertension) Hypoacusis Ileostomy present Intra abdominal hemorrhage Meniere's disease Old myocardial infarction Peripheral vascular disease Premature ventricular contraction Presence of stent in coronary artery (~12/22/16) Pulmonary embolism Rectal cancer Subclavian artery stenosis, left 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 Home Medications coenzyme Q10 50 mg capsule (Co Q-10) 100 mg PO DAILY vitamin 03/04/18 [History Last Taken Unknown] cholecalciferol (vitamin D3) 50 mcg (2,000 unit) capsule 4,000 unit PO DAILY PRN vitamin 07/21/19 [History Last Taken Unknown] aspirin 81 mg tablet,delayed release (Adult Low Dose Aspirin) 81 mg PO DAILY 05/05/23 [History Last Taken 07/08/23] magnesium 250 mg tablet 250 mg PO DAILY 05/05/23 [History Last Taken Unknown] clopidogrel 75 mg tablet (Plavix) 75 mg PO .daily #90 tabs 07/08/23 [Rx Last Taken Unknown] Allergy/AdvReac Type Severity Reaction Status Date / Time clindamycin Allergy Intermediate Abd Verified 05/20/23 15:39 cramps/diarrhea cat dander [cats] AdvReac PT UNSURE Verified 05/20/23 15:39 OF REACTION codeine AdvReac Upset Verified 05/20/23 15:39 Stomach Family History Father CAD (coronary artery disease) Myocardial infarction, Onset Age: 45 Mother Carotid artery stenosis Surgical History History of tonsillectomy History of transurethral resection of prostate (~09/2016) Presence of coronary angioplasty implant and graft (~12/22/16) S/P CABG (coronary artery bypass graft) (~09/16/98) S/P PTCA (percutaneous transluminal coronary angioplasty) (~12/22/16) Social History Smoking Status: Former smoker how long ago did patient quit smokin alcohol intake: current details: occasional ROS Constitutional Constitutional: Denies chills, fever(s), frequent falls, lethargy or weakness Eyes Eyes: Denies blind spots, change in vision or loss of vision ENT HEENT: Denies bleeding gums, hoarseness or sore throat Cardiovascular Cardiovascular: Denies abdominal pain, bluish discoloration of hand/feet, chest pain with activity, claudication, cold extremities, cyanosis, dyspnea on exertion, erythema on extremities, irregular heart rhythm, leg edema, leg ulcers, numbness in extremities or weakness in extremities Respiratory/Chest Respiratory/Chest: Denies cough, excessive phlegm production, shortness of breath at rest, shortness of breath with exertion or wheezing Gastrointestinal Gastrointestinal: Denies anorexia, change in stool character, constipation, diarrhea, melena or rectal bleeding Genitourinary Genitourinary: Denies dysuria or hematuria Musculoskeletal Musculoskeletal: Denies abnormal gait Integumentary Integumentary: Reports other Details: ; Denies erythema, non-healing lesions or wounds Neurologic Neurologic: Denies abnormal speech, focal weakness, headache(s), loss of vision, numbness, paresthesias or sensory deficit Hematologic/Lymphatic Hematologic/Lymphatic: Denies easy bleeding, easy bruising or lymphadenopathy Vital Signs Vital Signs Vital Signs: Weight Weight: 188 lb Body Mass Index (BMI) 30.3 Physical Exam Const alert, oriented x3, no apparent distress and healthy appearing General Appearance: cooperative; Negative for combative or lethargic Orientation / Consciousness: awake Exam Limitations: no limitations HEENT Head and Scalp: normocephalic and atraumatic Eyes EOMs intact bilaterally General Eye: normal appearance of both eyes Neck full ROM, no lymphadenopathy, thyroid normal and No no carotid bruits General: trachea midline; Negative for lymphadenopathy or tenderness Thyroid: thyroid normal Lymph Lymphatic: Negative for no lymphadenopathy noted Resp normal respiratory effort, no use of accessory muscles and clear to auscultation bilaterally Effort and Inspection: Negative for labored, stridor or audible wheezes Cardio regular rate, regular rhythm and no murmurs Peripheral Pulses: brachial pulses present, radial pulses present, femoral pulses present, popliteal pulses present, posterior tibial pulses present and dorsalis pedis pulses present GI non-tender and non-distended; Negative for hepatosplenomegaly Back/Spine Cervical Spine: cervical ROM normal Extremity full ROM, normal capillary refill and no clubbing, cyanosis or edema Skin no rashes or lesions noted and no wounds Neuro oriented x3, CN's II-XII intact bilaterally, no focal motor deficits and no sensory deficits noted Psych thought process normal, cooperative, affect normal, speech normal and activity/motor behavior normal Results Lab / Micro Data 07/08/23 07:47 07/08/23 07:47 Assessment & Plan Assessment/Plan (1) Claudication of left upper extremity due to atherosclerosis: PLAN: -angio possible intervention
== END 2023-07-08 14:15 | disposition home or self-care (01) ==
PROVIDERS: PCP Internal Medicine; Referring Provider Surgery Trauma Surgery; Visit Provider Surgery Trauma Surgery
DX: I77.1 Stricture of artery (principal); I25.10 Atherosclerotic heart disease of native coronary artery without angina pectoris; E78.5 Hyperlipidemia, unspecified; I73.9 Peripheral vascular disease, unspecified; Z87.891 Personal history of nicotine dependence; I10 Essential (primary) hypertension; Z79.82 Long term (current) use of aspirin; K21.9 Gastro-esophageal reflux disease without esophagitis; Z95.1 Presence of aortocoronary bypass graft
CPT/HCPCS: 36415; 37236; 37252; 37253; 75710; 76937; 80048; 85025; 99152; 99153; C1753; C1769; J7040; C1894

== ENCOUNTER → 2023-08-26 | Outpatient (CLI) | payer MEDICARE, OTHER, SELFPAY ==
--- NOTE | 2023-08-26 10:37 | ART_ITS ---
Reason For Study: S/P Lt SUBCLA Stent Procedure A bilateral upper extremity continuous wave Doppler with analog waveform analysis and segmental pressures. Left Segmental Pressures Left brachial= 135mmHg. Left radial= 154mmHg. Left ulnar= 163mmHg. Left digit = 138 mmHg. The left brachial waveforms are triphasic. The left radial waveforms are triphasic. The left ulnar waveforms are triphasic. Right Segmental Pressures Right brachial= 148mmHg. Right radial= 162mmHg. Right ulnar= 167mmHg. Right digit = 146 mmHg. The right brachial waveforms are triphasic. The right radial waveforms are triphasic. The right ulnar waveforms are triphasic. Indices The right wrist-brachial index is 1.13. The right digital-brachial index is 0.99. The left wrist- brachial index is 1.10. The left digital-brachial index is 0.93. VL/Upper Extremity Arterial Study Interpretation Summary Right wrist-brachial index 1.13, normal. Doppler/PVR waveforms of the right arm normal at rest. Left wrist-brachial index 1.1, normal. Doppler/PVR waveforms of the left arm no rmal at rest. Ordering Physician: Naty Amato Referring Physician: Meme Keith M.D. Performed By: Saúl Pearson RVT
== END | disposition home or self-care (01) ==
LOC: CVS 10:37
PROVIDERS: PCP Internal Medicine; Referring Provider Physician Assistant; Visit Provider Physician Assistant
DX: I77.1 Stricture of artery (principal)
CPT/HCPCS: 93923

== ENCOUNTER → 2023-11-10 | Outpatient (CLI) | payer MEDICARE, OTHER, SELFPAY ==
[2023-11-10 13:23] LABS: AST(SGOT) 25 U/L (15-37); Alanine Aminotransfer ALT/SGPT 18 U/L (16-61); Albumin, Serum 3.5 g/dL (3.2-5.0); Alkaline Phosphatase 78 U/L (45-117); Anion Gap 4 (5-15); BUN 22 mg/dL (7-18); BUN/Creat Ratio 19.8 RATIO (10-20); Calcium,Total 8.7 mg/dL (8.5-10.1); Chloride 110 mmol/L (98-107); Cholesterol 161 mg/dL (200); Creatinine, Serum 1.11 mg/dL (0.70-1.30); EST Glomerular Filtration Rate 69 mL/min (>60); Est Glom Filt Rate - Afr Amer 83 mL/min (>60); Globulin 3.6 g/dL (2.2-4.2); Glucose 99 mg/dL (74-106); High Density Lipoprotein 64 mg/dL; Protein, Total 7.1 g/dL (6.4-8.2); Sodium Level 139 mmol/L (136-145); Triglycerides 69 mg/dL; Very Low Density Lipoprotein 14 mg/dL (5-40)
== END | disposition home or self-care (01) ==
LOC: LAB 11:21
PROVIDERS: PCP Internal Medicine; Referring Provider Internal Medicine Cardiovascular Disease; Visit Provider Internal Medicine Cardiovascular Disease
DX: I25.10 Atherosclerotic heart disease of native coronary artery without angina pectoris (principal); E78.5 Hyperlipidemia, unspecified
CPT/HCPCS: 36415; 80053; 80061

== ENCOUNTER 2023-11-29 13:00 | Outpatient (RCR) | payer MEDICARE, OTHER, SELFPAY ==
--- NOTE | 2023-11-15 15:22 | HP.PTEVAL_ITS ---
Patient's Visit Information Visit Information Visit Information: JAI MOREJON is a 73 year old M referred to Physical Therapy by Dr. Howard Siddiqui MD with a diagnosis of lumbar and cervical radiculopathy.. Date of Evaluation: 11/15/23 Physical Therapist: Raghu Bunn, DPT, OCS, CSCS Visit Plan Frequency: 2x /Week Duration: 4-6 Weeks Plan: 2x/week for 2-6 weeks as helpful for 1. neck soft tissue work UT and lev scap and scalenes, Neck ROM and manual traction, mobs PA. 2. neck, postural, core and general strength to HEP as tolerated. May do TENS with MH to shoulder if pain at rest persists IE cerical retraction 10x throughout day and scap circles thorughout day and postural focus Subjective Subjective: A lot of problems. Is in severe pain lately in L shoulder up to L side of neck. L leg is no good and not sure why. It gives out if he walks too far. Pain is constant and has been present for a week constantly since changing toilet in bathroom. has been on and off for years. Had to stop golfing. Golf sets it off. hard to sleep currently. Gets some numbness in both hands intermittently without reason. Sleep is interrupted in that it wakes him up at night and hard to get comfortable. Not in a week has he slept well. Not employed. Spends day working around the house and yard work. Can only do this for so long as leg won't hold him and shoulder worse for the last 3-4 days. Ex machines bike adn TM and healthr[employer] and back machine and weights (curls, punches, ) Not in a long time( a number of months. Basic ADLS are getting done but they huirt. Painful just to sit. H/o cortisone shots in to shoulder has helped him 2x/ Had CA (dec 2021)in last two years and ruptured stomach blood vessel (2021) Pain L shoulder/neck: Pain Intensity (Out of 10): 9 Pain Intensity Range: 0 and 9 Objective Objective: L shoulder pain bu tnot tender to touch in supraspinatus or deltoid, only mild tenderness in UT and scalenes L, not consistent with 6-9/10 pain but t hen again, neither is hi8s facial expressions today as his nonverbals are not consistent with 9/10 pain. - HK, - neer, - labral, - ext rot lag test, - drop aarm. Full aROM B shoulders without pain. Sensation UE to gross light touch is WNL reflexes bi and tri and patella adn achilles 1/3 B. strength shoulders is 4/5 wihtout pain abd and flexion, eer/ir 4- without pain, bi and tri 4 no pain, wrist flexion ext no pain. No SOB today, no central or chest pain as he has had in the past with heart problems. 70 resting HR today and not labored breathing. Cervical AROM ext 30 with some pain, retraction mod limted with pain in L neck and shoulder. + c/s compression test with L SB to L shoulder. tightness palpable in UT and scalenes and lev scap B. rotation is 50 B rotations without increased pain, SB slightly pain L neck B SB at 18 degrees. LB AROM ext max limited, flexiona dn SB are OK. Stiffness and tenderness central LB with ext. LE AROM WFL and no pain. sensation LE WNL to gross light touch. - SLR, - slump test. instability in pelvis and spine with hip flexion testing strength LE 4/5 without pain increase. Posture is FW head and elevated scapula whcih are protracted. Overall, pt has had increased pain in last 5 days after lifting toilet up and down steps despite not feeling any injury. Likiely radiculopathy in shoulder form neck as shoulder testing is clear and heart looks OK with my clinical testing also. MRI would be helpful to clear up the situation in the neck. Pt not sleeping over last 5(new pain since visited doctor) days and will contact doctor as he has had injections in the past that helped shoulder pain immediately and he is frustrated with his pain. Balance/Special Test Scores Oswestry Neck Score: 18 Goals Goal 1:: 50 extension and 55 rotation B neck to attempt to decrease pain radiculopathy Goal Time Frame: 4-6 Weeks Goal 2:: Pain in shoulder intermittent at most and 75% improved. Goal Time Frame: 4-6 Weeks Goal 3:: i appropriate HEP for posture, neck core and general strength to I including neck streetches and neck and back ROM. Goal Time Frame: 4-6 Weeks Goal 4:: oswestry neck score 8 or better Goal Time Frame: 4-6 Weeks Rehabilitation Potential Physical Therapy Diagnosis: shoulder pain limiting sleep likely cervical related. Lacking ROM and flexibility in neck Rehabilitation Potential: Fair Anticipated Interventions Patient/Client Instruction: Educate patient on: Condition and Plan of Care For the Purpose of:: To decrease pain, To increase ROM, To improve nutrient delivery to tissue, To increase tolerance to activity/condition/position and To improve gait and locomotor functions Therapeutic Exercise to Include: Strength training, Postural training, Flexibilty training, Passive ROM and Active ROM For the Purpose of:: To decrease pain, To increase ROM, To improve nutrient delivery to tissue, To improve muscle performance and motor function and To increase tolerance to activity/condition/position Manual Therapy Techniques to Include: Mobilization, Passive ROM and Soft tissue mobilization For the Purpose of:: To decrease pain, To increase ROM and To improve nutrient delivery to tissue TENS: Yes Thermo therapy (hot pack): Yes For the Purpose of:: To decrease pain and To increase ROM Text: Thank you for the opportunity to evaluate your patient. For Medicare and Medicare HMO plans, please review the plan of care and approve it. It will need to be FAXED BACK to us at [phone] for Medicare purposes. For Medicare only, by signing this I certify the plan of care. Please let me know if there are questions or concerns regarding this plan of care. Physician Signature: Date:
--- NOTE | 2023-11-29 14:23 | HP.PTDCSUM ---
Discharge Summary D/C summary: It has been my pleasure to treat JAI MOREJON referred by Dr. Howard Siddiqui MD, with the diagnosis of lumbar and cervical radiculopathy. for a total of 4 visit(s). Discharge Date: 11/29/23 Please see the following information for a summary of their discharge status. Subjective Subjective: Feels better after therapy for an hour or so. Treatments aren't helping. Taking pain meds. Using ice. Retraction and scapular movements are getting done but burning in L shoulder persists. 10/08 without moving. MRI is scheduled for the 12/08 Pain L shoulder/neck: Pain Intensity (Out of 10): 8 Objective Objective/Function: 30 extension, 65 B rotation all with end range pain. Pain at rest down L arm. Good ROM of arm but painful. Subjectively not happy with lack of progress and frustrated. Eagerly awaiting MRI. pain down arm is limiting him. Trial of TENS today and pt to contact doctor regarding any appropriate pain meds while he awaits MRI. Goals Goal 1:: 50 extension and 55 rotation B neck to attempt to decrease pain radiculopathy Goal Progress: Not Progressing Goal 2:: Pain in shoulder intermittent at most and 75% improved. Goal Progress: Not Progressing Goal 3:: i appropriate HEP for posture, neck core and general strength to I including neck streetches and neck and back ROM. Goal Progress: Not Progressing Goal 4:: oswestry neck score 8 or better Goal Progress: Not Progressing Plan Plan: Pt wishes to hold until after MRI vs continue in PT. D/C patient at his request. Happy to see him after MRI if desired and appropriate. D/C Information Discharge Comments: Pt wishes to hold until after MRI for further treatment and will discuss with doctor. d/c sentence: If there are questions or concerns regarding this patient's physical therapy, please feel free to call me at [phone]. Thank you for the referral of this patient. Sincerely, Raghu Bunn, DPT, OCS, CSCS Balance/Gait/Functional tests Balance/Special Test Scores Oswestry Low Back Score: 21 Oswestry Neck Score: 18
== END 2023-11-29 15:38 | disposition home or self-care (01) ==
LOC: PT 13:00
PROVIDERS: PCP Internal Medicine; Referring Provider Orthopaedic Surgery Orthopaedic Surgery of the Spine; Visit Provider Orthopaedic Surgery Orthopaedic Surgery of the Spine
DX: M54.12 Radiculopathy, cervical region (principal); M54.16 Radiculopathy, lumbar region
CPT/HCPCS: 97110; 97140; 97163; 97530

== ENCOUNTER → 2023-12-09 | Outpatient (CLI) | payer MEDICARE, OTHER, SELFPAY ==
--- NOTE | 2023-12-09 06:40 | MRI_ITS ---
EXAM: MR LUMBAR SPINE WITHOUT INTRAVENOUS CONTRAST CLINICAL INDICATION: pain TECHNIQUE: Multiplanar and multisequence MR images of the lumbar spine without intravenous contrast. COMPARISON: No relevant prior studies available. FINDINGS: VERTEBRAE: Normal lordosis. No significant loss in vertebral body height. No bone marrow edema. SPINAL CORD: Normal. Normal position and signal intensity of the conus medullaris. SOFT TISSUES: Normal. LIVER: Incidentally noted are cystic liver lesions which have been previously described. DISCS/SPINAL CANAL/NEURAL FORAMINA: L1-L2: No significant disc space narrowing. Mild deformity of the superior endplate of L2 which may be related to old trauma. No significant loss in the L2 vertebral body. There are prominent osteophytes. No disc protrusion. Ligamentous hypertrophy and facet arthropathy without significant impingement on the spinal canal or neural foramina. L2-L3: Moderate disc space narrowing and irregularity of the endplates. Prominent anterior vertebral body osteophytosis. There is minimal retrolisthesis of L2 on L3, ligamentous hypertrophy and facet arthropathy resulting in mild spinal stenosis and mild narrowing of the neural foramina. L3-L4: Moderate disc space narrowing associated with mild retrolisthesis of L3 on L4. Left central disc protrusion, ligamentous hypertrophy and facet arthropathy results in moderate spinal stenosis and severe left and moderate right neural foraminal narrowing. L4-L5: Mild disc space narrowing. Mild retrolisthesis of L4 on L5. Prominent ligamentous hypertrophy and facet arthropathy along with the retrolisthesis results and moderate to severe spinal stenosis and moderate to severe bilateral neural foraminal stenosis. L5-S1: Mild posterior disc space narrowing. Minimal anterior listhesis of L5 on S1. Mild disc bulging, facet arthropathy and ligamentous hypertrophy result in moderate to severe bilateral neural foraminal narrowing. No spinal stenosis. MRI/Spine Lumbar (Routine) IMPRESSION: Multilevel disc degeneration and facet arthropathy resulting in significant multilevel spinal and neural foraminal stenoses most prominent at the L3-4 and L4-5 levels as described above. Electronically Signed: Juan Gamboa MD at 8:49 EDT ,
--- NOTE | 2023-12-09 06:40 | MRI_ITS ---
EXAM: MR CERVICAL SPINE WITHOUT INTRAVENOUS CONTRAST CLINICAL INDICATION: pain TECHNIQUE: Multiplanar and multisequence MR images of the cervical spine without intravenous contrast were performed. COMPARISON: No relevant prior studies available. FINDINGS: VERTEBRAE: See below. SPINAL CORD: Unremarkable in signal and morphology. SOFT TISSUES: Normal. No prevertebral soft tissue swelling. LYMPH NODES: Normal. There is no cervical adenopathy. DISCS/SPINAL CANAL/NEURAL FORAMINA: C2-C3: Normal. Normal disc height and morphology. Normal spinal canal. Normal neuroforamina. C3-C4: Mild disc space narrowing. Minimal anterior listhesis of C3 on C4. Disc osteophyte complex causes minimal impression on the thecal sac and severe left and moderate right neural foraminal narrowing. C4-C5: Mild disc space narrowing. No disc herniation or spinal stenosis. Significant bilateral neural foraminal narrowing related to bony hypertrophy. C5-C6: Mild disc space narrowing. Mild broad-based disc protrusion and posterior ligamentous redundancy results in mild to moderate spinal stenosis. Prominent bilateral neural foraminal narrowing related to bony hypertrophy. C6-C7: Moderate disc space narrowing. Broad-based disc protrusion and posterior ligamentous redundancy results in mild spinal stenosis. Prominent bilateral neural foraminal narrowing related to bony hypertrophy. C7-T1: No significant disc space narrowing. Mild disc bulging without spinal stenosis. Moderate narrowing of the right neural foramen related to bony hypertrophy. No significant narrowing of the left neural foramen. MRI/Spine Cervical (Routine) IMPRESSION: 1. Mild to moderate C5-6 and mild C6-7 spinal stenosis related to disc protrusion and posterior ligamentous redundancy. 2. Prominent multilevel neural foraminal narrowing related to bony hypertrophy. 3. No evidence of cord edema. Electronically Signed: Juan Gamboa MD at 9:02 EDT ,
== END | disposition home or self-care (01) ==
PROVIDERS: PCP Internal Medicine; Referring Provider Orthopaedic Surgery Orthopaedic Surgery of the Spine; Visit Provider Orthopaedic Surgery Orthopaedic Surgery of the Spine
DX: M54.12 Radiculopathy, cervical region (principal); M54.16 Radiculopathy, lumbar region
CPT/HCPCS: 72141; 72148

== ENCOUNTER → 2024-01-03 | Outpatient (CLI) | payer MEDICARE, OTHER, SELFPAY ==
--- NOTE | 2024-01-03 09:03 | STRESSREP_ITS ---
Stress Test Report Date: 01/03/2024 Procedure: Pharmacologic stress nuclear imaging study Indications: Preop Consent: Per the patient Procedure: The patient underwent pharmacologic (Regadenoson 0.4mg ) evaluation with a peak heart rate of 84 beats per minute (57%predicted maximal heart rate) and a peak blood pressure of 150/70 mmHg. The baseline ECG demonstrated sinus rhythm. The peak pharmacologic ECG demonstrated no ischemic changes. There were no cardiac dysrhythmias pretest, during pharmacologic infusion, or recovery. There was no complaint of chest discomfort during pharmacologic infusion or recovery. The patient was injected with 10 point millicuries of technetium 99m Cardiolite and subsequently rest SPECT Cardiolite nuclear imaging was obtained in the horizontal long, vertical long, and short axis views. The patient underwent pharmacologic (Regadenoson) evaluation. The patient was injected with 31.0 millicuries of technetium 99m Cardiolite and subsequently stress SPECT Cardiolite nuclear imaging was obtained in the horizontal long, vertical long, and short axis views. A gated Cardiolite study at peak stress was obtained. The examination was stopped secondary to completion of protocol. Rest and stress SPECT Cardiolite nuclear imaging status post realignment, normalization, and attenuation correction demonstrate no fixed or reversible perfusion defects. There is end systolic thickening and brightening. The gated Cardiolite study demonstrates myocardial thickening and inward wall motion. The reported LVEF is 77%. Impression: 1. Pharmacologic (Regadenoson) evaluation 2. Peak pharmacologic ECG with no ischemic changes. 3. There were no cardiac dysrhythmias pretest, during pharmacologic infusion, or recovery. 5. Rest and stress SPECT Cardiolite nuclear imaging demonstrate relative uniform tracer uptake and myocardial perfusion appearing within normal limits. 6. The gated Cardiolite study reports an LVEF of 77%. This note was generated with [employer] software. It may contain incorrect words, spelling, and punctuation that were not noted in checking the note before signing.
== END | disposition home or self-care (01) ==
LOC: CVS 06:09
PROVIDERS: PCP Internal Medicine; Referring Provider Nurse Practitioner Family; Visit Provider Nurse Practitioner Family
DX: Z01.810 Encounter for preprocedural cardiovascular examination (principal); M54.12 Radiculopathy, cervical region; Z95.5 Presence of coronary angioplasty implant and graft; Z95.1 Presence of aortocoronary bypass graft
CPT/HCPCS: 78452; 93017; A9500; A4216; J2785

== ENCOUNTER 2024-01-18 10:22 | Observation (INO) | payer MEDICARE, OTHER, SELFPAY ==
--- NOTE | 2024-01-05 06:49 | EKG12_ITS ---
Test Reason : PREOP Blood Pressure : */* mmHG Vent. Rate : 61 BPM Atrial Rate : 61 BPM P-R Int : 162 ms QRS Dur : 120 ms QT Int : 452 ms P-R-T Axes : 21 10 42 degrees QTcB Int : 455 ms Normal sinus rhythm Right bundle branch block Abnormal ECG Confirmed by Hugo Foy ([id number]), editor producer DEBORAH ELLSWORTH ([id number]) on 01/05/2024 1:10:02 PM Referred By: Howard Siddiqui Confirmed By: Hugo Foy
[2024-01-05 07:33] LABS: Absolute Lymphocyte Count 1.71 X10^3/uL (0.83-4.51); Absolute Neutrophil Count 3.9 X10^3/uL (2.0-7.7); Basophil# 0.06 X10^3/uL; Basophil% 0.9 % (0-1); Eosinophil# 0.44 X10^3/uL; Eosinophils% 6.4 % (0-5); Hemoglobin 13.3 g/dL (13.0-16.5); Lymphocyte # 1.71 X10^3/ul (0.83-4.51); Lymphocyte % 24.7 % (19-41); Mean Corp Hgb Conc 32.4 g/dL (32-36); Mean Corpuscular Hgb 31.2 pg (27.0-32.0); Mean Corpuscular Volume 96.2 fL (80-94); Mean Platelet Vol. 10.5 fl (6.2-12.0); Monocyte# 0.73 X10^3/uL; Monocyte% 10.6 % (0-10); NRBC Flagged by Analyzer 0 % (0-5); Neutrophil # 3.94 X10^3/uL (2.7-7.7); Platelet Count 231 K/mm3 (150-450); RBC Distribution Width CV 14.2 % (11.6-14.6); RBC Distribution Width SD 50.4 fl (35.1-43.9); Red Blood Count 4.26 M/mm3 (4.6-6.2); White Blood Count 6.9 K/mm3 (4.4-11.0)
[2024-01-05 07:53] LABS: Magnesium 2.3 mg/dL (1.6-2.6)
[2024-01-05 09:05] LABS: HIV - WCH Non-Reactive (Nonreactive); Hepatitis B Surface Antibody Reactive; Hepatitis C Antibody Non-Reactive (Nonreactive)
[2024-01-06 05:08] LABS: Hepatitis A AB, Total Negative (Negative)
[2024-01-18] VITALS (15 sets, daily range): BP systolic 116–162; BP diastolic 68–95; PULSE 59–107; RESP 16; TEMP 35.9–36.7; O2SAT 96–100; BMI 30.6
[2024-01-18] MEDS: Acetaminophen 500 MG Tablet 1000 MG PO (06:10)
[2024-01-18] MEDS: Lactated Ringers 1,000 ML 15 ML IV (06:10)
[2024-01-18] MEDS: Magnesium 1 GM over 15 mins IV (06:10)
[2024-01-18 06:13] LABS: Bedside Glucose 86 mg/dL (74-106)
--- NOTE | 2024-01-18 07:01 | PCM.PRE.AN2 ---
ASA Classification* ASA Classification ASA Classification: 3 Assessment & Plan Anesthesia* Anesthesia Assessment Anesthesia Assessment: Discussed sedation and/or anesthesia options, risks, benefits, and alternatives with patient/parents/legal guardian/POA. Questions invited. The patient/parents/legal guardian/POA seems to understand and agrees to proceed with anesthesia plan. Reviewed the physical assessment, medical history, allergy history and patient home medications list prior to surgery/procedure/anesthetic and documented any changes. Performed airway and anesthesia risk assessments. Anesthesia Type Anesthesia Type: General Anesthesia Focused Assessment* Temperature: 97 F Pulse Rate: 59 Blood Pressure: 162/73 Respiratory Rate: 16 Pulse Ox: 97 Airway Assessment Mouth opens: >3 cm Mallampati Score: II Focused Labs Anesthesia Preop lab: CBC WBC 6.9 K/mm3 (4.4-11.0) 01/05/24 07:04 RBC 4.26 M/mm3 (4.6-6.2) L 01/05/24 07:04 Hgb 13.3 g/dL (13.0-16.5) 01/05/24 07:04 Hct 41.0 % (40-54) 01/05/24 07:04 Plt Count 231 K/mm3 (150-450) 01/05/24 07:04 CHEMISTRY Potassium 4.0 mmol/L (3.5-5.1) 11/10/23 11:27 Sodium 139 mmol/L (136-145) 11/10/23 11:27 Magnesium 2.3 mg/dL (1.6-2.6) 01/05/24 07:02 BUN 22 mg/dL (7-18) H 11/10/23 11:27 Creatinine 1.11 mg/dL (0.70-1.30) 11/10/23 11:27 Glucose 99 mg/dL (74-106) 11/10/23 11:27 POC Glucose 86 mg/dL (74-106) 01/18/24 05:55 COAG PT 15.6 SECONDS (11.7-14.9) H 03/01/22 20:23 Pre-Assessment Diagnosis/Proposed Procedure Planned Operative Procedure(s): ERAS, Anterior Cervical Disc Fusion C5-6 and C6-7 Anesthesia History 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 When Was Last Pacemaker Check QUESTION #4 FULL TEXT: You/Your Family Experience fever (hyperthermia) with Anesthesia Last Oral Intake Last Oral intake: Last Oral Intake NPO since 00:00 01/18/24 05:58 Meds taken in AM with sips of Yes 01/18/24 05:58 water? Meds patient instructed to multivitamin 01/18/24 05:58 take am of surgery q10 PONV PONV - satellite dish repairer: PONV - satellite dish repairer Female No 01/04/24 08:50 HX of Motion Sickness No 01/04/24 08:50 HX of N/V After Surgery No 01/04/24 08:50 Non-Smoker Yes 01/04/24 08:50 Duration of Surgery greater Yes 01/04/24 08:50 than 60 minutes Number of Risk Factors 2 01/04/24 08:50 PONV Score Moderate Risk 01/04/24 08:50 Height & Weight Height & Weight: Anesthesia: Height & Weight Height 5 ft 6 in 01/18/24 05:58 Weight: 86 kg 01/18/24 05:58 Body Mass Index (BMI) 30.6 01/18/24 05:58 Respiratory Assessment Respiratory Assessment - satellite dish repairer: Respiratory Tract Infection Hx - satellite dish repairer Hx Respiratory Tract Infection No 01/04/24 08:50 STOP Sleep Apnea STOP Sleep Apnea - satellite dish repairer: STOP Sleep Apnea - satellite dish repairer Hx Hypertension No 01/04/24 08:50 Hx Sleep Apnea No 01/04/24 08:50 CPAP No 01/04/24 08:50 BIPAP No 01/04/24 08:50 Do you snore loudly (louder No 01/04/24 08:50 than talking or can be heard Do you often feel tired/ No 01/04/24 08:50 fatigued/ sleepy during daytime? Has anyone observed you stop No 01/04/24 08:50 breathing during sleep? STOP Results Negative 01/04/24 08:50 QUESTION #5 FULL TEXT : Do you snore loudly (louder than talking or can be heard through closed doors)? 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: Tobacco Use History - satellite dish repairer Tobacco Use Smoking Status Former smoker 01/04/24 08:50 Hx Tobacco Use No 01/04/24 08:50 Years Smoking Packs Smoked per Day Smoking Cessation Date was No - quit smoking greater 01/04/24 08:50 within the last 15 years than 15 years ago Hx Smoking Cessation Date 02/19/00 01/04/24 08:50 Hx Smoking Cessation No 01/04/24 08:50 Counseling Hematologic Medial History Hematologic Hx - satellite dish repairer: Hematologic Medical Hx - sack lifter Hx of Blood Transfusion No 01/04/24 08:50 Hx of Transfusion in last 3 No 01/04/24 08:50 Months Date of Last Transfusion (if within last 3 months) Ever experience any problems No 01/04/24 08:50 with transfusion(s)? Specify any problems Hx of Preganancy in last 3 N/A 01/04/24 08:50 Months Nurse Filling Out Transfusion VCHRISTIN 01/04/24 08:50 & Questions: Date: 01/04/24 01/04/24 08:50 Time: 08:52 01/04/24 08:50 Patient unable to answer at this time (ie. confused, unrespo /Reproduction History /Reproductive History - satellite dish repairer: /Reproductive Hx- satellite dish repairer Hx Now Gestational Age (in weeks): EDC: Hx Hx Para Hx Section SAB Active Medications Active Medications: Current Medications Generic Name Dose Route Start Last Admin Trade Name Freq PRN Reason Stop Dose Admin Acetaminophen 1,000 mg 01/18/24 07:30 01/18/24 06:10 Acetaminophen 500 Mg Tablet PO 01/18/24 07:31 1,000 mg X1 ONE Administration Dexamethasone Sodium Phosphate 8 mg 01/18/24 07:30 Dexamethasone 10 Mg/Ml Vial IV 01/18/24 07:31 X1 ONE Dexamethasone Sodium Phosphate 4 mg 01/18/24 07:30 Dexamethasone 4 Mg/Ml Vial IV 01/18/24 07:31 X1 ONE Tranexamic Acid 1,000 mg/ 110 mls @ 440 mls/hr 01/18/24 07:30 Sodium Chloride IV 01/18/24 07:44 X1 ONE Tranexamic Acid 1,000 mg/ 110 mls @ 440 mls/hr 01/18/24 07:30 Sodium Chloride IV 01/18/24 07:44 X1 ONE Cefazolin Sodium 2 gm/ N/A 20 mls @ 400 mls/hr 01/18/24 07:30 IV 01/18/24 07:32 PREOP ONE Magnesium Sulfate 1 gm/ 102 mls @ 408 mls/hr 01/18/24 07:30 01/18/24 06:10 Dextrose IV 01/18/24 07:44 408 mls/hr X1 ONE Administration Lactated Ringer's 1,000 mls @ 15 mls/hr 01/18/24 05:45 01/18/24 06:10 IV 01/23/24 19:04 15 mls/hr .Q48H AUDREY Administration Protocol Insulin Human Lispro 1 - 6 unit 01/18/24 07:30 Insulin Lispro 100 Unit/Ml Insuln.Pen SC 01/18/24 13:00 Q4H PRN PRN BG>/= 180, SEE PROTOCOL Protocol PFSH Medical History MRSA (methicillin resistant staph aureus) culture positive Deaf Wears hearing aid Wears glasses Cancer High cholesterol DVT (deep venous thrombosis) Injury of head and neck Loss of consciousness Gastric reflux Former smoker History of edema History of echocardiogram History of stress test Cardiology follow-up encounter Pulmonary embolism Gastric artery aneurysm Ileostomy present Rectal cancer Intra abdominal hemorrhage Dilated aortic root 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 Subclavian artery stenosis, left GERD (gastroesophageal reflux disease) Meniere's disease Bilateral carotid artery stenosis Old myocardial infarction Premature ventricular contraction Peripheral vascular disease Presence of stent in coronary artery (~12/22/16) Essential hypertension Atherosclerotic heart disease of [place] coronary artery without angina pectoris Hypoacusis Dyslipidemia HTN (hypertension) CAD (coronary artery disease) Home Medications ?Medication ?Instructions ?Recorded ?Last Taken ?Type coenzyme Q10 50 mg capsule (Co 100 mg PO DAILY vitamin 03/04/18 01/18/24 History Q-10) cholecalciferol (vitamin D3) 50 4,000 unit PO DAILY vitamin 07/21/19 01/17/24 History mcg (2,000 unit) capsule aspirin 81 mg tablet,delayed 81 mg PO DAILY 05/05/23 01/17/24 History release (Adult Low Dose Aspirin) magnesium 250 mg tablet 500 mg PO DAILY 05/05/23 01/14/24 History rosuvastatin 10 mg tablet 10 mg PO QDAY #90 tabs 11/10/23 01/18/24 Rx clopidogrel 75 mg tablet (Plavix) 75 mg PO DAILY 01/04/24 01/11/24 History multivitamin 1 tab PO DAILY 01/04/24 01/18/24 History Allergy/AdvReac Type Severity Reaction Status Date / Time clindamycin Allergy Intermediate Abd Verified 01/18/24 05:56 cramps/diarrhea cat dander (cats) AdvReac PT UNSURE Verified 01/18/24 05:56 OF REACTION codeine AdvReac Upset Verified 01/18/24 05:56 Stomach Family History Father CAD (coronary artery disease) Myocardial infarction, Onset Age: 45 Mother Carotid artery stenosis Surgical History History of coronary artery stent placement Presence of coronary angioplasty implant and graft (~12/22/16) History of tonsillectomy History of transurethral resection of prostate (~09/2016) S/P CABG (coronary artery bypass graft) (~09/16/98) S/P PTCA (percutaneous transluminal coronary angioplasty) (~12/22/16) Social History Smoking Status: Former smoker how long ago did patient quit smokin alcohol intake: current details: occasional Review of Systems (Anesthesia) ROS Narrative System reviewed and no additional complaints, except as documented.
--- NOTE | 2024-01-18 07:28 | PCM.HP.BLA ---
History and Physical Date of Admission: 01/18/24 MR#: [id number] Acct: [id number] Name: JAI MOREJON Rep #: [id number] : 1950 Provider: Dr. Howard Siddiqui MD Age/Sex: 73/M Location: [facility] [email or web address] Status: Signed Intake Vital Signs 11/09/2409:35 Height 5 ft 6 in Intake Visit Reasons: cervical spine Accompanied by: Self Allergies clindamycin Allergy (Intermediate, Verified 01/11/24 08:03) Abd cramps/diarrheacat dander (cats) Adverse Reaction (Verified 01/11/24 08:03) PT UNSURE OF REACTIONcodeine Adverse Reaction (Verified 01/11/24 08:03) Upset Stomach Medications ?Medication ?Instructions ?Recorded ?Confirmed ?Type coenzyme Q10 50 mg capsule (Co 100 mg PO DAILY vitamin 03/04/18 01/11/24 History Q-10) cholecalciferol (vitamin D3) 50 4,000 unit PO DAILY vitamin 07/21/19 01/11/24 History mcg (2,000 unit) capsule aspirin 81 mg tablet,delayed 81 mg PO DAILY 05/05/23 01/11/24 History release (Adult Low Dose Aspirin) magnesium 250 mg tablet 500 mg PO DAILY 05/05/23 01/11/24 History rosuvastatin 10 mg tablet 10 mg PO QDAY #90 tabs 11/10/23 01/11/24 Rx clopidogrel 75 mg tablet (Plavix) 75 mg PO DAILY 01/04/24 01/11/24 History multivitamin 1 tab PO DAILY 01/04/24 01/11/24 History Have you fallen in the past year?: No PFSH Medical History MRSA (methicillin resistant staph aureus) culture positive Deaf Wears hearing aid Wears glasses Cancer High cholesterol DVT (deep venous thrombosis) Injury of head and neck Loss of consciousness Gastric reflux Former smoker History of edema History of echocardiogram History of stress test Cardiology follow-up encounter Pulmonary embolism Gastric artery aneurysm Ileostomy present Rectal cancer Intra abdominal hemorrhage Dilated aortic root 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 Subclavian artery stenosis, left GERD (gastroesophageal reflux disease) Meniere's disease Bilateral carotid artery stenosis Old myocardial infarction Premature ventricular contraction Peripheral vascular disease Presence of stent in coronary artery (~12/22/16) Essential hypertension Atherosclerotic heart disease of [place] coronary artery without angina pectoris Hypoacusis Dyslipidemia HTN (hypertension) CAD (coronary artery disease) Surgical History History of coronary artery stent placement Presence of coronary angioplasty implant and graft (~12/22/16) History of tonsillectomy History of transurethral resection of prostate (~09/2016) S/P CABG (coronary artery bypass graft) (~09/16/98) S/P PTCA (percutaneous transluminal coronary angioplasty) (~12/22/16) Family History Father CAD (coronary artery disease) Myocardial infarction, Onset Age: 45Mother Carotid artery stenosis Social History Smoking Status: Former smoker how long ago did patient quit smokin alcohol intake: current details: occasional HPI cervical spine Details: This documentation accurately reflects the service provided and the decisions made by me, Dr. Howard Siddiqui MD 01/11/24 0756. Part of today?s visit was documented by Radha MUSTAFA, acting as scribe. JAI MOREJON is a 73 year old M here today for preop, cervical spine, dos 01/18/24. C5-7 ACDF. He continues to have left sided arm and leg weakness. HPI from 12/13/23: JAI MOREJON is a 73 year old M here today for a MRI review of his Cervical and Lumbar Spine. Patient states no changes. Patient states the pain is the same as before the MRI's. Patient states lower back isn't to bad now it aches in the morning. Patient states left shoulder and arm are the worse. HPI from 11/04/23: JAI MOREJON is a 73 year old M here today for Lumbar and Cervical pain. Patient went to the dentist yesterday and to lay down it bothered his back and then he had a pain down his left arm. Feels that he is losing muscle mass of his left arm over his biceps. Patient states his left leg is almost useless, patient can't walk distances. Patient has never had injections in his back. Patient has no numbness or tingling that shoots down his legs. The other day he did have pain in his left leg. Patient states his back pain is right above his hip in the lower back on both sides. Patient states sitting for any period of time it huts to get up. Chaka continues to have neck and low back pain with radiation to his left shoulder as well as radiation to his left lower extremity. He was seen by me in July and was advised MRI and physical therapy both of which she did not do. In the interim he underwent rectal MRI. He has had a history of rectal cancer which was treated with laparoscopic surgery and radiation in 2021. He has never had an MRI of the spine. 08/13/23: JAI MOREJON is a 73 year old M here today for cervical spine pain. Patient states the cervical spine pain has been bothering him for about 5-6 years. Patient denies any injury or accident that caused the pain to start. 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 Patient states he has weakness in his left arm. He states he had a stent put in about a month ago and states this has given him some relief in the left arm. Patient states he did get some numbness, tingling and some buzzing sensation in the left shoulder but after the stent was placed he states this stopped. He states he gets pain in the left arm just sitting down. Patient states he gets really bad cramping in both legs but the left leg seems to be worse and the cramping seems to be worse at night when he is laying in bed. He describes this crampy type of pain as a daniel horse. Patient states he will take some Tylenol for the pain when needed but generally he just walks it off or rubs the pain. Patient states the left leg will give out on him. Patient denies any physical therapy or injections for the cervical spine. Patient has had some serious health issues over the past couple of years. Patient states he has an ileostomy bag due to a cancer operation he had. Chaka mentions that he has had no neck pain. He noticed weakness in left upper and left lower extremity over the last couple years which slightly improved after the stent placement a month ago per his own report. He denies any hand numbness but feels like his left arm is entirely heavy. He also notices crampy pain after walking about 1/4 mile distance in the legs. He also has axial low back pain. The pain in the left lower extremity is along the medial and posterior thigh. He has not had any MRIs. He mentions of some gait imbalance but attributes some of it to dizziness and inner ear problems. He drops things from his left hand. Ortho Exam General General: Yes no acute distress Neurologic: Yes alert and Yes oriented x3 Spine SPINE TESTING CERVICAL THORACIC LUMBAR Musculoskeletal Strength 0=absent - 5=normal Details: Examination of the neck and back show no tenderness in the neck and mild paraspinal tenderness in the lower back. Neurologic exam of the upper extremity shows 4+ magnetic resonance imaging coordinator strength, biceps and triceps, and 5 power in all other muscle groups. Normal sensations in all dermatomes. Lub[place]'s negative. Romberg's is negative. Gait shows mild imbalance. There is no hyperreflexia of the lower extremities. Coding Level of Care Code Off vis,est,level 4 Diagnoses Cervical radiculopathy M54.12 Spinal stenosis of lumbar region with neurogenic claudication M48.062 Time Spent (min) 35 Assessment and Plan Assessment and Plan (1) Cervical radiculopathy: Status: Acute (2) Spinal stenosis of lumbar region with neurogenic claudication: Status: Acute Plan Again reviewed both cervical and lumbar MRIs. Cervical MRI shows mild to moderate C5-6 and mild C6-7 spinal stenosis related to disc protrusion and posterior ligamentous redundancy. Lumbar MRI shows moderate disc space narrowing associated with mild retrolisthesis of L3 on L4. Left central disc protrusion with moderate spinal stenosis and severe left and moderate right neural foraminal narrowing. L5-S1 shows minimal anterolisthesis with mild disc bulging, facet arthropathy and ligamentous hypertrophy resulting in moderate to severe bilateral neural foraminal narrowing. Patient is here today for a preop appointment for C5-7 ACDF. Reviewed the benefits and risks of surgery. Risks of surgery include bleeding, infection, hematoma formation, need for further surgery, hardware failure, pseudoarthrosis, adjacent segment degeneration, pneumonia, DVT, pulmonary embolism, atelectasis, dysphagia, dysphonia, persistent pain, nerve injuries, spinal cord injury, Iban syndrome, chance for future surgeries. He has a history of blood clots in his lungs and legs and is able to stop his Plavix for the surgery per vascular, but not baby aspirin. Discussed the importance of him to walk after surgery due to his history. Patient understands and agrees to proceed with surgery. Explained in detail the procedure of the cervical fusion. Discussed post surgery restrictions such as no bending, lifting, or twisting. Answered all questions that she had today in preparation for next week. Consent was signed. Patient is in agreement.
[2024-01-18] MEDS: Cefazolin 2 GM in Syringe IV ×3 (07:40→22:57)
[2024-01-18] MEDS: TRANEXAMIC ACID 1,000 MG in 0.9% Normal Saline (100mL Bag) 100 ML 440 MG IV ×2 (07:40→09:44)
--- NOTE | 2024-01-18 07:50 | RAD_ITS ---
INDICATION: ERAS, ANTERIOR CERVICAL DISC FUSION C5-C6 AND C6-C7 EXAMINATION/TECHNIQUE: X-RAY - XR Spine Cervical 2 or 3 Views COMPARISON: No relevant prior comparison study available FINDINGS: Views of the cervical spine were obtained intraoperatively on a C-arm for fusion of the lower cervical spine at the levels of C5-C6 and C6-C7 with anterior plate and screws. Images were obtained for documentation only. Fluoroscopy time: 15 seconds. Number of fluoroscopic images: 7. Radiation dosage: 2.66 mGy. RAD/Cerv Spine 2 or 3 Views IMPRESSION: Intraoperative exam as described above.. Electronically Signed: Jonathan Cash MD at 11:32 EST ,
[2024-01-18] MEDS: dexAMETHasone 10 MG/ML Vial 8 MG IV (07:58)
--- NOTE | 2024-01-18 10:04 | PCM.OPRPT ---
Operative Report (Standard) Operative Information Surgery/Procedure Performed: C5-7 anterior cervical discectomy and fusion Surgeon: Howard Siddiqui Date of Procedure: 01/18/24 Procedure Start Time: 08:09 Procedure Stop Time: 10:15 Pre-Operative Diagnosis: C5-7 disc degeneration with stenosis, radiculopathy Post-Operative Diagnosis: Same Select all DRAINS/GRAFTS/IMPLANTS that apply: Drains Drain details: Kerkhoven , Graft Graft details: Structural allograft cortical cancellous strut, DBX and Implanted device Implanted device details: Medtronic [place] Elite anterior cervical plate instrumentation Type of Anesthesia: General Estimated Blood Loss: 30 cc Specimen collected: No Description of surgery: Preoperative diagnosis: C5-7 disc degeneration with stenosis, radiculopathy Postoperative diagnosis: Same Name of procedure: C5-7 anterior cervical discectomy and fusion with plate instrumentation - Anterior cervical fusion C5-6, CPT code 08578 - Anterior plate instrumentation C5-7, CPT code 65888/59 - Anterior cervical fusion C6-7, CPT code 54566/51 -C5-6 structural allograft bone with DBX, CPT code 20320 -C6-7 structural allograft bone with DBX, CPT code 63706 Attending surgeon: Howard Siddiqui M.D. Anesthesia: Gen. endotracheal Estimated blood loss: 30 mL Complications: None Instrumentation used: Medtronic [place] Elite plate, LASR corticocancellous block Indications: The patient is a pleasant 73-year-old gentleman who presented with neck pain, left worse than right radicular pain, left arm weakness. MRI showed C5-7 disc degeneration, central foraminal stenosis. Due to the presence of weakness, the patient requested surgical treatment. All risks and benefits of the procedure were explained to the patient. The risks include but are not limited to infection, bleeding, injury to nerves and vessels, vertebral artery injury, spinal cord injury, paralysis, vocal cord paralysis, injury to esophagus, pseudoarthrosis, need for further procedures, adjacent segment degeneration. Procedure: The patient was identified in the preoperative suite using unique patient identifiers. Skin was marked consent was taken and all questions were answered. The patient was then brought back to the operative room and a timeout was performed. General endotracheal anesthesia was given. Intraoperative neuro monitoring leads were applied. The patient was carefully positioned supine on a regular OR table. A lateral view with a C-arm was done to identify the level and to define the incision. The anterior neck was then prepped and draped in the usual fashion. A final timeout was then performed. A transverse skin incision was taken to the left of midline. Subcutaneous tissue was then divided with Bovie. Platysma was identified and cut along the incision with scissors. The fascial interval between the sternocleidomastoid and the larynx was developed. Vascular clips were utilized to ligate small vein. Omohyoid was identified and retracted. The esophagus with the larynx was retracted medially to reach the prevertebral fascia. Marker x-ray was performed with bent spinal needle and disc space and levels were confirmed. Longus coli muscle was elevated on both sides at and above and below C5-7 discs. Self-retaining retractors were then placed. A long handle knife was then used to perform annulotomy at C5-6. Disc fragments were removed with the pituitary. Wayne pins were placed in C5 and C6 for disc distraction. Curettes and bur was utilized to remove cartilage from the endplates. Discectomy was performed laterally up to the uncovertebral joints. Posterior osteophytes were thinned down with the bur and adequate decompression in the central and foraminal areas were performed and PLL was thinned out. Once the disc space was prepared, trials of various sizes were utilized. Thorough irrigation was given. 7 mm LASR cortical cancellous allograft bone large footprint was then fashioned in such a way that concavities were burred out inferiorly and superiorly and half cc of DBX (demineralized bone matrix) was squeezed into the cancellous portion. The graft was then inserted into the C5-6 disc space. The retractors were then repositioned and the procedure was repeated for C6-7 discs with complete discectomy. Graft size was 6 mm at with large footprint at C6-7. The grafts were found to be in good apposition with good pullout strength. A 40 mm Medtronic [place] Elite plate was then fixed to C5-7 with 16 mm screws. A lateral x-ray was then taken to check the length of the screws. Both AP and lateral x-rays showed good positioning of plate and screws. The locking mechanism over the screw heads was then turned. Thorough irrigation was again given. Hemostasis was achieved. A Kerkhoven drain was then inserted. Closure was done with 3-0 Vicryl for the platysma and subcutaneous tissue layers and 4-0 Monocryl for the skin. Closure was done around the drain. Steri-Strips were applied and dressing was done with 4 x 4 gauze and Tegaderm. A cervical collar was then applied. The patient was then woken up from anesthesia extubated and taken to PACU in stable condition. From here, the patient will be transitioned to the floor. Intraoperative neuro monitoring was performed throughout this procedure. Motor evoked potentials were run periodically. All potentials remained at baseline throughout the procedure. I was present for the entire surgery and performed the surgery myself. Manager Change Zaira De Jesus PA-C. My physician real estate legal assistant was a vital part of this case. They were important in appropriate retraction during the case, and protection of soft tissues during the procedure. Their intimate knowledge of the case and my steps aided in safe and expedient completion of the procedure as well as appropriate position of the patient during the surgery. They were also vital in assisting with closure under my direct supervision. Surgical Findings: See operative note Night Clerk cold rolling coordinator: Yes Metalizing Machine Operator Automatic: Zaira De Jesus Tasks completed by machine operator assistant: Closing, Removing tissue, Hemostasis: Electrocautery and Retracting Complications Complications: No Procedures Musculoskeletal [id number]: Other Procedure See Report
--- NOTE | 2024-01-18 10:31 | PCM.POST.ANE ---
Anesthesia: Postop Eval I Current Vital Signs Temperature: 97 F Pulse Rate: 92 Blood Pressure: 132/75 Respiratory Rate: 16 Pulse Ox: 97 Oxygen Delivery Method: Room Air Assessment Airway patent: Yes Spontaneous unlabored respirations: Yes Mental status: Awake and Calm nausea: No Vomiting: No Anesthesia Complication: No Fluid Hydration Crystalloid volume administer (ml): 1,100 Total IV fluid infused: 1,100 Progress Note Anesthesia document: Postop Eval 1 completed: Yes
--- NOTE | 2024-01-18 15:04 | PCM.PN.HOSP ---
Reason for Visit Reason for Visit: Cervical radiculopathy Subjective Subjective Patient is a 73-year-old white male who was admitted for an elective cervical fusion at C5-7 due to disc degeneration with stenosis and cervical radiculopathy. Patient has a past medical history of PE and DVT remotely and is not currently anticoagulated, history of rectal cancer, subclavian steal syndrome on the left, and GERD, M?ni?re's disease, bilateral carotid artery stenosis, CAD, HTN, HPL, GERD, rectal CA, and tobacco abuse. We have been consulted postoperatively for medical management of his chronic medical issues. Patient was seen and evaluated on the medical floor postoperatively. Patient states he is feeling great. Plan is for him to go home tomorrow. States his arm pain is much better than it was preoperatively. Objective Data Objective Data Vital Signs: Vital Signs Temp Pulse Resp BP Pulse Ox O2 Del Method O2 Flow Rate 97.8 F 101 H 16 152/95 H 99 Nasal Cannula 2 01/18/24 11:46 01/18/24 11:46 01/18/24 11:46 01/18/24 11:46 01/18/24 11:46 01/18/24 11:46 01/18/24 11:46 Oxygen Flow Rate (L/min) 2 Oxygen Delivery Method Nasal Cannula Weight: 86 kg Body Mass Index (BMI) 30.6 Intake & Output: Intake and Output for Last 24 Hours 01/16/24 01/17/24 01/18/24 23:59 23:59 23:59 Intake Total 1342 / 1342 Balance 1342 / 1342 Lab / Micro Data 01/05/24 07:04 Labs: Laboratory Results - last 24 hr 01/18/24 05:55: POC Glucose 86 Micro: Microbiology 01/05/24 07:04 Swab (Method) Nasal Screen MRSA/MSSA - Final Radiography Diagnostic Testing: Radiology Impression Cervical Spine X-Ray 01/18/24 07:50 IMPRESSION: Intraoperative exam as described above.. Electronically Signed: Jonathan Cash MD at 11:32 EST , Physical Exam Const alert, oriented x3, no apparent distress and well nourished Constitutional Narrative: Older, white male, sitting up in bed, appears comfortable, nontoxic Neck Neck Narrative: Cervical collar in place Resp normal respiratory effort, no retractions, no use of accessory muscles and clear to auscultation bilaterally Auscultation: Negative for rales, rhonchi or wheezes Cardio regular rate, regular rhythm, S1 normal heart sound, S2 normal heart sound, no murmurs, no rub, no gallops and no clicks GI normal to inspection, nondistended, normoactive bowel sounds, soft to palpation and non-tender Extremity no clubbing, cyanosis or edema Extremity Narrative: Pedal and radial pulses are 2+ bilaterally Neuro oriented x3, moves all extremities and no focal motor deficits Speech: speech normal Psych affect normal Psych Narrative: Very pleasant, talkative, interacts appropriately Assessment & Plan Assessment/Plan (1) Cervical radiculopathy: PLAN: Plan Cervical radiculopathy -Postop day 0 ACDF of C5-C7 -Pain management per primary service -Recommend bowel regimen -Wean postoperative oxygen as able -Monitor for postoperative urinary retention -Therapy services per primary CAD essential/HTN/HPL -S/P bypass surgery with MURPHY to LAD, RSVG to OM, and SVG to PDA in August 1994 and PTCA/SHIN to mid/distal RCA in November 2016 and a total of 6 stented segments last of which appears to been in 2017 -Restart Plavix and aspirin when okay with orthopedic surgery -Continue home rosuvastatin -Patient is not on any chronic antihypertensives at this time -Had unremarkable stress test on 01/05/2024 in preparation for surgery History of bilateral PE/extensive bilateral lower extremity DVT -Diagnosed in March 2022 at [facility] -Provoked and no longer on medical therapy Bilateral carotid artery stenosis/PVD -Restart aspirin and Plavix as able per orthopedic surgery -Continue home rosuvastatin History of subclavian steal syndrome on the left -Would recommend utilization of his right upper extremity for blood pressure measurements GERD -Patient is currently on no medication for reflux -Monitor for symptoms History of M?ni?re's disease -No current issues -Monitor clinically History of rectal cancer -Remote and stable -Has colostomy with good output as a result History of tobacco abuse -Remote DVT prophylaxis -Per primary service Charges/Coding Visit Charges Inpatient E&M: 02652 Subs Hosp L2
[2024-01-18] MEDS: Ketorolac 15 MG/ML Vial IV ×2 (15:42→22:56)
[2024-01-18] MEDS: dexAMETHasone 4 MG/ML Vial IV ×2 (15:43→19:48)
[2024-01-18] MEDS: Methocarbamol 500 MG Tablet 1000 MG PO ×3 (15:43→22:57)
--- NOTE | 2024-01-18 15:56 | POSTOPAN2_ITS ---
Anesthesia Postop Eval I Sum Postop Eval Completion status Anesthesia document: Postop Eval 1 completed: Yes Anesthesia Postop Eval I Summary Anesthesia Postop Eval I Summary: Anesthesia Postop Eval I: Assessment Summary Airway patent Yes 01/18/24 10:32 GAS APPLIANCE [email or web address] Spontaneous unlabored Yes 01/18/24 10:32 GAS APPLIANCE [email or web address].[email or web address] respirations Mental status Awake,Calm 01/18/24 10:32 GAS APPLIANCE INSTALLER.[email or web address] nausea No 01/18/24 10:32 GAS APPLIANCE INSTALLER.GDOTT Vomiting No 01/18/24 10:32 GAS APPLIANCE [email or web address].[email or web address] Anesthesia Postop Eval I: Fluid Summary Crystalloid volume administer 1,100 01/18/24 10:32 GAS APPLIANCE INSTALLER.GDOTT (ml) Colloids volume administered ( ml) Blood Product volume administered (ml) Total IV fluid infused 1,100 01/18/24 10:32 GAS APPLIANCE [email or web address].[email or web address] Anesthesia Postop Eval I: Summary Notes Anesthesia Complication No 01/18/24 10:32 GAS APPLIANCE [email or web address] Anesthesia Complication Comment: Post-operative progress note Anesthesia: Postop Eval II Evaluation Mental status: Awake and Calm Pain Level: 1 nausea: No Vomiting: No Complications Anesthesia Complication: No
--- NOTE | 2024-01-18 15:56 | PCM.POSTANE2 ---
Anesthesia Postop Eval I Sum Postop Eval Completion status Anesthesia document: Postop Eval 1 completed: Yes Anesthesia Postop Eval I Summary Anesthesia Postop Eval I Summary: Anesthesia Postop Eval I: Assessment Summary Airway patent Yes 01/18/24 10:32 WAREHOUSE RECEIVING [email or web address] Spontaneous unlabored Yes 01/18/24 10:32 WAREHOUSE RECEIVING CLERK.GDOTT respirations Mental status Awake,Calm 01/18/24 10:32 WAREHOUSE RECEIVING CLERK.GDOTT nausea No 01/18/24 10:32 WAREHOUSE RECEIVING CLERK.GDOTT Vomiting No 01/18/24 10:32 WAREHOUSE RECEIVING CLERK.GDOTT Anesthesia Postop Eval I: Fluid Summary Crystalloid volume administer 1,100 01/18/24 10:32 WAREHOUSE RECEIVING CLERK.GDOTT (ml) Colloids volume administered ( ml) Blood Product volume administered (ml) Total IV fluid infused 1,100 01/18/24 10:32 WAREHOUSE RECEIVING CLERK.GDOTT Anesthesia Postop Eval I: Summary Notes Anesthesia Complication No 01/18/24 10:32 WAREHOUSE RECEIVING CLERK.GDOTT Anesthesia Complication Comment: Post-operative progress note Anesthesia: Postop Eval II Evaluation Mental status: Awake and Calm Pain Level: 1 nausea: No Vomiting: No Complications Anesthesia Complication: No
[2024-01-18] MEDS: HYDROcodone Bitartrate/Apap 5/325 Tablet PO (18:51)
[2024-01-18] MEDS: 0.9% Saline Lock 10 ML Syringe IV ×2 (19:48→22:57)
[2024-01-18] MEDS: Atorvastatin Calcium 20 MG Tablet PO (22:56)
[2024-01-19] MEDS: 0.9% Saline Lock 10 ML Syringe IV (05:31)
[2024-01-19] MEDS: Ketorolac 15 MG/ML Vial IV (05:31)
[2024-01-19] MEDS: Methocarbamol 500 MG Tablet 1000 MG PO ×2 (05:31→12:34)
[2024-01-19 05:40] VITALS: BMI 30.6
[2024-01-19 05:41] VITALS: BP 157/85; PULSE 84; RESP 16; TEMP 36.4; O2SAT 96
[2024-01-19 07:10] LABS: Hematocrit 39.6 % (40-54); Hemoglobin 12.8 g/dL (13.0-16.5); Mean Corp Hgb Conc 32.3 g/dL (32-36); Mean Corpuscular Hgb 30.4 pg (27.0-32.0); Mean Corpuscular Volume 94.1 fL (80-94); Mean Platelet Vol. 10.5 fl (6.2-12.0); Platelet Count 253 K/mm3 (150-450); RBC Distribution Width CV 14.2 % (11.6-14.6); RBC Distribution Width SD 48.7 fl (35.1-43.9); Red Blood Count 4.21 M/mm3 (4.6-6.2); White Blood Count 11.4 K/mm3 (4.4-11.0)
--- NOTE | 2024-01-19 07:15 | RAD_ITS ---
STUDY: X-RAY - CERVICAL SPINE REASON FOR EXAM: Male, 73 years old. S/p cervical fusion -- please do upright AP and LAT TECHNIQUE: 2 view(s) of the cervical spine were obtained. COMPARISON: None FINDINGS: The patient status post anterior fusion at the C5-C6 and C6-C7 levels with a screw and plate fixation device as well as prosthetic disc. There is good alignment. RAD/Cerv Spine 2 or 3 Views IMPRESSION: Status post anterior fusion at the C5-C6 and C6-C7 levels and prosthetic discs. Electronically Signed: Leno Patterson MD at 12:08 EST ,
[2024-01-19 07:30] LABS: Anion Gap 7 (5-15); BUN 23 mg/dL (7-18); BUN/Creat Ratio 19.7 RATIO (10-20); Calcium,Total 8.6 mg/dL (8.5-10.1); Chloride 106 mmol/L (98-107); Creatinine, Serum 1.17 mg/dL (0.70-1.30); EST Glomerular Filtration Rate 65 mL/min (>60); Est Glom Filt Rate - Afr Amer 78 mL/min (>60); Estimated Creatinine Clearance 57.81 ml/min; Glucose 151 mg/dL (74-106); Sodium Level 136 mmol/L (136-145)
[2024-01-19 09:00] VITALS: BP 137/82; PULSE 64; RESP 18; TEMP 36.7; O2SAT 96
[2024-01-19] MEDS: Meloxicam 15 MG Tablet PO (09:10)
[2024-01-19] MEDS: Senna/Docusate Sodium 1 Tablet 2 TABLET PO (09:10)
[2024-01-19] MEDS: Multivitamins,Therapeutic Tablet 1 TABLET PO (09:11)
--- NOTE | 2024-01-19 10:19 | CASEMGMT ---
DERRICK CHONG Assessment: Face to Face with pt for initial transition planning/care coordination assessment. DERRICK CHONG introduced self and role at [facility], pt voices understanding and consents to assessment. Pt is A&O x4 and answers all questions appropriately at this time. Pt sitting up in bed in no distress. Care providers, pharmacy, and demographics verified/updated. Admitting Dx: cervical disc fusion Strata Score: 2 PCP:Inna Specialists:josselyn Siddiqui; preet Reynolds Preferred Pharmacy: [facility] Insurance: [employer] Prescription Benefit: yes LNOK: Marilu Luna, Living Arrangements: Pt lives with in a two story home with 3 steps to enter with ecomom rail. Pt reports he is I in ADLs and denies concerns at home. Transportation: Pt drives self and denies concerns with transportation. Pt will transport him until he can drive again. DME:ostomy supplies- pt indep with HHC/SNF: Pt has had HHC in the past, denies SNF stays Pt states no concerns with going home at time of dc. Pt seen ambulating the halls without a device. Pt states no further concerns/needs. CM to follow. Advised pt to ask CM if any further question/concerns/needs arise, voices understanding. Pt Goal: Home Plan: Home Edith MEZA CM
--- NOTE | 2024-01-19 10:46 | CASEMGMT ---
Met with patient to complete JIMÉNEZ form. JIMÉNEZ form explained to patient who voiced understanding and signed form. Original form placed in pt?s chart and copy provided to patient. Kierra Lebron, Discharge Planning Asst
[2024-01-19 11:46] VITALS: BMI 30.6
[2024-01-19 12:44] VITALS: BP 130/74; PULSE 78; RESP 18; TEMP 36.8; O2SAT 100
--- NOTE | 2024-01-19 13:09 | PHA.DC.MC.R ---
Pharmacy [facility] has performed discharge medication reconciliation and counseling for this patient. 1. NORCO 5/325MG 1T PO Q6H 2. METHOCARBAMOL 750MG PO TID PRN PAIN/SPASMS 3. SENNA/DOCUSATE 2T PO BID PRN CONSTIPATION 4. HOLD ASPIRIN AND PLAVIX The patient's discharge medication list was reviewed for discrepancies and discrepancies were resolved. The patient was counseled on the following discharge medications and changes in medications for homegoing were reviewed. The Reason for Use, instructions for use, and potential side effects were reviewed for all new medications. The patient's questions regarding all of their medications were answered. The patient was able to verbally demonstrate an understanding of their discharge medications. Patient was counseled by pharmacy operations coordinator, Dhruv. Medications at Discharge Home Medications coenzyme Q10 50 mg capsule (Co Q-10) 100 mg PO DAILY vitamin 03/04/18 cholecalciferol (vitamin D3) 50 mcg (2,000 unit) capsule 4,000 unit PO DAILY vitamin 07/21/19 aspirin 81 mg tablet,delayed release (Adult Low Dose Aspirin) 81 mg PO DAILY 05/05/23 magnesium 250 mg tablet 500 mg PO DAILY 05/05/23 rosuvastatin 10 mg tablet 10 mg PO QDAY #90 tabs 11/10/23 clopidogrel 75 mg tablet (Plavix) 75 mg PO DAILY 01/04/24 multivitamin 1 tab PO DAILY 01/04/24 hydrocodone-acetaminophen 5-325mg 5mg-325mg 1 tab PO Q6H 7 days #28 tabs 01/19/24 methocarbamol 500 mg tablet 750 mg (1.5 x 500 mg) PO TID PRN pain/spasms #30 tabs 01/19/24 sennosides 8.6 mg-docusate sodium 50 mg tablet (Stimulant Laxative Plus) 2 tab PO BID PRN constipation #30 tabs 01/19/24
--- NOTE | 2024-01-19 13:11 | CHAPLAIN ---
Type of Pastoral Visit _x__ Initial Visit ___ Follow-up Visit ___ On-call Visit ___ General Patient Visit ___ Spiritual Assessment ___ Family Conference ___ Bereavement ___ Rapid Response ___ Code Blue ___ Other (describe below) Pastoral Care Referral From _x__ Patient ___ Family ___ Nurse ___ Physician ___ Beet Flumer ___ Performance Manager ___ Other (describe below) Sacrament/Intervention _x__ Active listening ___ Anointing ___ Shinto ___ Bereavement ___ Communion _x__ Gemini exploration ___ _x__ Life review ___ Prayer ___ Reconciliation ___ Sacrament of Sick ___ Supportive presence ___ Wedding ___ Other (describe below) Pastoral Comments patient is getting ready for discharge and is just waiting for his lunch and discharge paperwork; pt reports good results and happy about his experience; pt gives life review including near encounters; pt identifies self as a born again Orthod[employer] and goes into depth on his thoughts and feelings about that; is present and supportive; lunch and RN both arrived to continue care and discharge so this visit ended with words of support and care
--- NOTE | 2024-01-19 13:47 | PCM.PN.ORT ---
Subjective Subjective Seen with Dr. Siddiqui. POD 1 C5-7 anterior cervical fusion. Patient is doing well postoperatively and says that he has not pain. He is ready for home discharge. He has walked in the hallways with a walker. He has tolerated a soft solids diet with no dysphagia. Objective Data Objective Data Vital Signs: Vital Signs Temp Pulse Resp BP Pulse Ox O2 Del Method O2 Flow Rate 98.2 F 78 18 130/74 H 100 Room Air 2 01/19/24 12:44 01/19/24 12:44 01/19/24 12:44 01/19/24 12:44 01/19/24 12:44 01/19/24 12:44 01/18/24 11:46 Oxygen Flow Rate (L/min) 2 Oxygen Delivery Method Room Air Weight: 189 lb 9.561 oz Body Mass Index (BMI) 30.6 Intake & Output: Intake and Output for Last 24 Hours 01/17/24 01/18/24 01/19/24 23:59 23:59 23:59 Intake Total 1580.5 / 1580.5 850 / 850 Output Total 500 / 500 Balance 1080.5 / 1080.5 850 / 850 Lab / Micro Data 01/19/24 06:12 01/19/24 06:12 Labs: Laboratory Results - last 24 hr 01/19/24 06:12: WBC 11.4 H, RBC 4.21 L, Hgb 12.8 L, Hct 39.6 L, MCV 94.1 H, MCH 30.4, MCHC 32.3, RDW Std Deviation 48.7 H, RDW Coeff of [place]ien[place] 14.2, Plt Count 253, MPV 10.5, Sodium 136, Potassium 4.0, Chloride 106, Carbon Dioxide 23.0, Anion Gap 7, BUN 23 H, Creatinine 1.17, Estim Creat Clear Calc 57.81, Est GFR (MDRD) Af Amer 78, Est GFR (MDRD) Non-Af 65, BUN/Creatinine Ratio 19.7, Glucose 151 H, Calcium 8.6 Micro: Microbiology 01/05/24 07:04 Swab (Method) Nasal Screen MRSA/MSSA - Final Radiography Diagnostic Testing: Radiology Impression Cervical Spine X-Ray 01/19/24 07:15 IMPRESSION: Status post anterior fusion at the C5-C6 and C6-C7 levels and prosthetic discs. Electronically Signed: Leno Patterson MD at 12:08 EST , Physical Exam Narrative Neurological exam of the upper extremities shows 5x5 power. Normal sensations across all dermatomes. Tegaderm, gauze, and drain removed. New gauze and tegaderm applied over incision. Cervical collar reapplied and demonstrated to the patient how to adjust the collars tightness. Const alert, oriented x3 and no apparent distress Assessment & Plan Assessment/Plan (1) Status post cervical spinal fusion: PLAN: Plan POD #1 C5-7 anterior cervical fusion. PT/OT cleared. Xrays obtained, look good. Discharge home. Home meds include hydrocodone-acetaminophen, Robaxin, senna. Continue to wear to hard collar at all time. No bending, lifting, or twisting. Follow up in clinic in 2 weeks.
== END 2024-01-19 13:03 | disposition home or self-care (01) ==
LOC: SDC 10:59 → MS3 01-19 06:54
PROVIDERS: Anesthesiology; Student in an Organized Health Care Education/Training Program; Admitting Provider Orthopaedic Surgery Orthopaedic Surgery of the Spine; PCP Internal Medicine; Referring Provider Orthopaedic Surgery Orthopaedic Surgery of the Spine; Visit Provider Orthopaedic Surgery Orthopaedic Surgery of the Spine
PROC: (CPT 22551; principal; 2024-01-18 07:00)
DX: M54.12 Radiculopathy, cervical region (principal); Z93.3 Colostomy status; E78.00 Pure hypercholesterolemia, unspecified; I10 Essential (primary) hypertension; M48.062 Spinal stenosis, lumbar region with neurogenic claudication; I25.10 Atherosclerotic heart disease of native coronary artery without angina pectoris; M48.02 Spinal stenosis, cervical region; M43.17 Spondylolisthesis, lumbosacral region; M48.07 Spinal stenosis, lumbosacral region; Z87.891 Personal history of nicotine dependence; M51.379 Other intervertebral disc degeneration, lumbosacral region without mention of lumbar back pain or lower extremity pain; Z95.5 Presence of coronary angioplasty implant and graft; Z79.899 Other long term (current) drug therapy; Z79.82 Long term (current) use of aspirin; Z79.02 Long term (current) use of antithrombotics/antiplatelets; H91.90 Unspecified hearing loss, unspecified ear; K21.9 Gastro-esophageal reflux disease without esophagitis; R20.0 Anesthesia of skin; Z86.711 Personal history of pulmonary embolism; Z86.718 Personal history of other venous thrombosis and embolism
CPT/HCPCS: 22551; 22845; 22552; 20931; 00670; 36415; 72040; 76000; 80048; 82962; 83735; 85025; 85027; 86703; 86706; 86708; 86803; 86850; 86900; 86901; 87081; 93005; 96374; 96375; 96376; 97161; 99221; A4648; C1713; J7120; A4216; G0378; J2405; J3475

== ENCOUNTER → 2024-02-25 | Outpatient (CLI) | payer MEDICARE, OTHER, SELFPAY ==
--- NOTE | 2024-02-25 12:55 | ART_ITS ---
Reason For Study: S/P Lt SUB A Stent Procedure A bilateral upper extremity continuous wave Doppler with analog waveform analysis and segmental pressures. Left Segmental Pressures Left brachial= 145mmHg. Left ulnar= 172mmHg. Left radial= 166mmHg. Left digit = 146 mmHg. The left radial waveforms are triphasic. The left ulnar waveforms are triphasic. Right Segmental Pressures Right brachial= 141mmHg. Right ulnar= 164mmHg. Right radial= 189mmHg. Right digit = 147 mmHg. The right radial waveforms are triphasic. The right ulnar waveforms are triphasic. Indices Rt WBI by the Ulnar A, 1.13. Rt WBI by the Radial A, 1.30. The right digital-brachial index is 1.01. Lt WBI by the Ulnar A, 1.19. Lt WBI by the Radial A, 1.14. The left digital-brachial index is 1.01. VL/Upper Extremity Arterial Study Interpretation Summary Right wrist-brachial index 1.3, normal. Digit index and Doppler/PVR waveforms o f the arm leg normal at rest. Left wrist-brachial index 1.19, normal. Digit index and Doppler/PVR waveforms o f the left arm normal at rest. Ordering Physician: Naty Amato Referring Physician: Meme Keith M.D. Performed By: Isaura Faria RVT and Student
== END | disposition home or self-care (01) ==
LOC: CVS 12:54
PROVIDERS: PCP Internal Medicine; Referring Provider Physician Assistant; Visit Provider Physician Assistant
DX: Z48.812 Encounter for surgical aftercare following surgery on the circulatory system (principal); G45.8 Other transient cerebral ischemic attacks and related syndromes
CPT/HCPCS: 93923

== ENCOUNTER 2024-04-25 10:35 | Emergency (ER) | payer MEDICARE, OTHER, SELFPAY ==
[2024-04-25 10:35] VITALS: BP 164/87; PULSE 80; RESP 14; TEMP 36.1; O2SAT 98; BMI 30.4
--- NOTE | 2024-04-25 11:05 | EX.ED.DYSGE1 ---
HPI <JANICE Green - Last Filed: 04/25/24 15:23> History of Present Illness Chief Complaint: Abd Pain Narrative Narrative: 73-year-old male with complex history including rectal cancer s/p resection with colostomy in 2021 with postoperative course that was complicated by intra-abdominal hemorrhage, DVT/PE, IVC filter on aspirin only presents with 1 week of left-sided abdominal pain. Pain is constant and nothing seems to make it better or worse. He feels like he is urinating more frequently but has no dysuria or hematuria. No fever, chills, nausea or vomiting. He states the output in his ostomy bag has been a normal amount but sometimes looks darker than usual based on what he eats. PFS <JANICE Green - Last Filed: 04/25/24 15:23> [facility] Medical History MRSA (methicillin resistant staph aureus) culture positive Deaf Wears hearing aid Wears glasses Cancer High cholesterol DVT (deep venous thrombosis) Injury of head and neck Loss of consciousness Gastric reflux Former smoker History of edema History of echocardiogram History of stress test Cardiology follow-up encounter Pulmonary embolism Gastric artery aneurysm Ileostomy present Rectal cancer Intra abdominal hemorrhage Dilated aortic root 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 Subclavian artery stenosis, left GERD (gastroesophageal reflux disease) Meniere's disease Bilateral carotid artery stenosis Old myocardial infarction Premature ventricular contraction Peripheral vascular disease Presence of stent in coronary artery (~12/22/16) Essential hypertension Atherosclerotic heart disease of [place] coronary artery without angina pectoris Hypoacusis Dyslipidemia HTN (hypertension) CAD (coronary artery disease) Home Medications ?Medication ?Instructions ?Recorded ?Last Taken ?Type coenzyme Q10 50 mg capsule (Co 100 mg PO DAILY vitamin 03/04/18 01/18/24 History Q-10) cholecalciferol (vitamin D3) 50 4,000 unit PO DAILY vitamin 07/21/19 01/17/24 History mcg (2,000 unit) capsule aspirin 81 mg tablet,delayed 81 mg PO DAILY 05/05/23 01/17/24 History release (Adult Low Dose Aspirin) Held on 01/19/24. Instructions: Resume on 01/21/24. magnesium 250 mg tablet 500 mg PO DAILY 05/05/23 01/14/24 History rosuvastatin 10 mg tablet 10 mg PO QDAY #90 tabs 11/10/23 01/18/24 Rx clopidogrel 75 mg tablet (Plavix) 75 mg PO DAILY 01/04/24 01/11/24 History Held on 01/19/24. Instructions: Resume on 01/21/24. multivitamin 1 tab PO DAILY 01/04/24 01/18/24 History sennosides 8.6 mg-docusate sodium 2 tab PO BID PRN constipation #30 01/19/24 Unknown Rx 50 mg tablet (Stimulant Laxative tabs Plus) hydrocodone-acetaminophen 5-325mg 1 tab PO Q6H PRN PRN Pain 3 days 04/25/24 Unknown Rx 5mg-325mg #12 TABLETS Allergy/AdvReac Type Severity Reaction Status Date / Time clindamycin Allergy Intermediate Abd Verified 04/25/24 10:35 cramps/diarrhea cat dander (cats) AdvReac PT UNSURE Verified 04/25/24 10:35 OF REACTION codeine AdvReac Upset Verified 04/25/24 10:35 Stomach Family History Father CAD (coronary artery disease) Myocardial infarction, Onset Age: 45 Mother Carotid artery stenosis Surgical History History of coronary artery stent placement Presence of coronary angioplasty implant and graft (~12/22/16) History of tonsillectomy History of transurethral resection of prostate (~09/2016) S/P CABG (coronary artery bypass graft) (~09/16/98) S/P PTCA (percutaneous transluminal coronary angioplasty) (~12/22/16) Social History Smoking Status: Former smoker how long ago did patient quit smokin alcohol intake: current details: occasional ROS <JANICE Green - Last Filed: 04/25/24 15:23> ROS ED ROS Narrative Constitutional: Negative for fever, chills, malaise. CVS: Negative for chest pain. Respiratory: Negative for shortness of breath, cough. GI: Positive for abdominal pain. Negative for nausea, vomiting, diarrhea, constipation, melena, hematochezia. : Negative for dysuria, hematuria. EXAM <JANICE Green - Last Filed: 04/25/24 15:23> Physical Exam Narrative Exam Narrative: CONST: Patient sitting in no acute distress. EYES: Normal inspection. NECK: Normal inspection. RESP: No respiratory distress, CTAB. CVS: Regular rate and rhythm, no murmur, no gallop. ABD: Right lower abdominal ostomy bag with light brown stool. Healthy pink appearing stoma. Abdomen is soft and tender in the left lower quadrant. No guarding or rebound, nondistended. SKIN: Color normal, no rash, warm, dry, intact. EXTREMITIES: Normal appearance, no pedal edema. NEURO: Alert and answering questions appropriately. PSYCH: Normal affect. Const Vital Signs: 04/25/24 10:35 04/25/24 12:38 04/25/24 14:12 Temperature 97 F L Temperature Source Temporal Pulse Rate 80 58 L 68 Respiratory Rate 14 16 15 Blood Pressure 164/87 H 143/76 H 141/84 H Blood Pressure Mean 112 98 103 Pulse Ox 98 97 98 Oxygen Delivery Method Room Air Room Air Room Air <Dr. Donovan Mccabe DO - Last Filed: 04/25/24 15:15> Physical Exam Const Vital Signs: 04/25/24 10:35 04/25/24 12:38 04/25/24 14:12 Temperature 97 F L Temperature Source Temporal Pulse Rate 80 58 L 68 Respiratory Rate 14 16 15 Blood Pressure 164/87 H 143/76 H 141/84 H Blood Pressure Mean 112 98 103 Pulse Ox 98 97 98 Oxygen Delivery Method Room Air Room Air Room Air MDM <JANICE Green - Last Filed: 04/25/24 15:23> [facility] Narrative Medical decision making narrative: History gathered from: Patient and spouse Differential includes but not limited to kidney stone, UTI, diverticulitis 74-year-old male with history of rectal resection and colostomy in 2021 due to cancer presents with 1 week of LLQ abdominal pain. He has a sensation of urinary fullness and frequency but no dysuria. He appears well and nontoxic. Vital signs stable. His abdomen is soft with LLQ tenderness. Stoma appears healthy with normal light brown output. Bladder scan is 51 cc ruling out retention. Labs and a CT scan were ordered and he declined pain medication. CBC shows WBC of 6.6. Hgb is 14.0. BMP is unremarkable. Urinalysis has 25-50 RBCs but is otherwise negative. CT of the abdomen/pelvis shows no acute findings to explain his pain. There are small gallstones but he is not symptomatic in the right upper quadrant. There is diffuse bladder wall thickening suggestive of inflammatory change but he does not have a UTI. His urine was sent for culture. He did request pain medication was given IV Toradol since he has normal renal function. I am not sure of the source of his pain. I prescribed [place] and recommended follow-up with his primary care doctor. He is established with urologist Dr. Mckeon and I told him he should follow-up for microscopic hematuria and his sensation and urinary frequency. Return precautions discussed. He was discharged in stable condition. I have personally performed a face to face assessment of the patient and have reviewed the FRANCISCO Note. I performed a substantive portion of the visit including all aspects of the following. My ward findings include: History is [patient presents with lower abdominal pain and sore about a week and a half ago. Pain more persistent over the last 3 days and rates it about a 3 out of 10. Nothing really seems to make it better or worse. He said no fever. He said no vomiting. Patient with history of rectal cancer that was resected and has currently an ileostomy. They attempted to reanastomose his colon to his rectum and they were unsuccessful and he is decided to just live with the ileostomy. No history of kidney stones. He does feel like he needs to urinate frequently.] Output from ileostomy normal. Exam is [HEENT-PERRLA, EOMI. Cranial nerves II through XII grossly intact. TMs clear. Mucous membranes moist. No adenopathy. Cardiovascular-regular rate and rhythm without murmur or ectopy Lungs-clear to auscultation, chest wall stable without crepitus or subcu emphysema Abdomen-normoactive bowel sounds, soft, nontender, no rebound or rigidity, no peritoneal signs. Unable to reproduce his pain with palpation of the abdomen. No mass palpated. Ileostomy with brown watery stool. Extremities-intact ?4, normal range of motion, normal pulses, atraumatic] Medical Decison Making [patient with lower abdominal pain. Will obtain labs and CT imaging of his abdomen pelvis to evaluate further. Will obtain a urinalysis.] CBC with differential showed white count 6.6 with hemoglobin 14 and platelet count of 320. Chemistries unremarkable. LFTs were normal urinalysis showed 25-50 RBCs but no signs of infection. CT scan of the abdomen pelvis showed some thickening of the bladder wall otherwise no significant changes. He had some small gallstones. He also had some stable presacral soft tissue density near the rectal stump which apparently is stable when compared with CT from 2021. Patient was medicated with Toradol for pain. He stated that the pain now seems to be more near his rectum and kind of radiating into his penis. On exam there is no evidence of masses or cellulitic changes and there is no evidence for hernias. Testicles are nontender. Etiology of his pain is unclear. Will refer to urology for follow-up. Will give a prescription for [place] for pain. Other additions or changes: [None] Lab Data Labs: Laboratory Results - last 24 hr 04/25/24 04/25/24 11:10 11:40 WBC 6.6 RBC 4.51 L Hgb 14.0 Hct 42.9 MCV 95.1 H MCH 31.0 MCHC 32.6 RDW Std Deviation 47.1 H RDW Coeff of [place] 13.3 Plt Count 320 MPV 9.8 Immature Gran % (Auto) 0.800 Neut % (Auto) 49.0 Lymph % (Auto) 28.7 [place] % (Auto) 17.6 H Eos % (Auto) 3.3 Baso % (Auto) 0.6 Absolute Neuts (auto) 3.2 Absolute Lymphs (auto) 1.89 Nucleated RBC % 0 Sodium 140 Potassium 4.0 Chloride 106 Carbon Dioxide 19.0 L Anion Gap 15 BUN 18 Creatinine 1.1 Estim Creat Clear Calc 60.40 Est GFR (MDRD) Non-Af 70 BUN/Creatinine Ratio 17.3 Glucose 89 Calcium 9.1 Total Bilirubin 0.33 AST 40 H ALT 38 Alkaline Phosphatase 92 Total Protein 7.3 Albumin 4.1 Globulin 3.2 Albumin/Globulin Ratio 1.3 Urine Color Yellow Urine Clarity Sl. Cloudy Urine pH 5.0 Ur Specific [place] 1.025 Urine Protein 30 H Urine Glucose (UA) Normal Urine Ketones Negative Urine Occult Blood 250 H Urine Nitrite Negative Urine Bilirubin Negative Urine Urobilinogen Normal Ur Leukocyte Esterase Negative Urine RBC 25-50 SEEN Urine WBC 0 SEEN Ur Squamous Epith Cells 0-5 SEEN Urine Bacteria 0 SEEN Urine Mucus 0 SEEN Radiography Diagnostic Testing: Clinical Impression(s) from Imaging Studies Abdomen/Pelvis CT 04/25/24 11:06 IMPRESSION: Multiple hepatic cysts. Small gallstones. Diffuse bladder wall thickening with mild increased markings in the surrounding fat suggestive of possible inflammatory change. Ileostomy seen in the right lower quadrant. Stable presacral soft tissue density. One or more dose reduction techniques were used (e.g., Automated exposure control, adjustment of the mA and/or kV according to patient size, use of iterative reconstruction technique). Reading Location: [id number] <Dr. Donovan Mccabe, DO - Last Filed: 04/25/24 15:15> [facility] Narrative Medical decision making narrative: 74-year-old male with history of rectal resection and colostomy in 2021 due to cancer presents with 1 week of LLQ abdominal pain. He has a sensation of urinary fullness and frequency but no dysuria. He appears well and nontoxic. Vital signs stable. His abdomen is soft with LLQ tenderness. Stoma appears healthy with normal light brown output. Bladder scan is 51 cc ruling out retention. Labs and a CT scan were ordered and he declined pain medication. I have personally performed a face to face assessment of the patient and have reviewed the FRANCISCO Note. I performed a substantive portion of the visit including all aspects of the following. My ward findings include: History is [patient presents with lower abdominal pain and sore about a week and a half ago. Pain more persistent over the last 3 days and rates it about a 3 out of 10. Nothing really seems to make it better or worse. He said no fever. He said no vomiting. Patient with history of rectal cancer that was resected and has currently an ileostomy. They attempted to reanastomose his colon to his rectum and they were unsuccessful and he is decided to just live with the ileostomy. No history of kidney stones. He does feel like he needs to urinate frequently.] Output from ileostomy normal. Exam is [HEENT-PERRLA, EOMI. Cranial nerves II through XII grossly intact. TMs clear. Mucous membranes moist. No adenopathy. Cardiovascular-regular rate and rhythm without murmur or ectopy Lungs-clear to auscultation, chest wall stable without crepitus or subcu emphysema Abdomen-normoactive bowel sounds, soft, nontender, no rebound or rigidity, no peritoneal signs. Unable to reproduce his pain with palpation of the abdomen. No mass palpated. Ileostomy with brown watery stool. Extremities-intact ?4, normal range of motion, normal pulses, atraumatic] Medical Decison Making [patient with lower abdominal pain. Will obtain labs and CT imaging of his abdomen pelvis to evaluate further. Will obtain a urinalysis.] CBC with differential showed white count 6.6 with hemoglobin 14 and platelet count of 320. Chemistries unremarkable. LFTs were normal urinalysis showed 25-50 RBCs but no signs of infection. CT scan of the abdomen pelvis showed some thickening of the bladder wall otherwise no significant changes. He had some small gallstones. He also had some stable presacral soft tissue density near the rectal stump which apparently is stable when compared with CT from 2021. Patient was medicated with Toradol for pain. He stated that the pain now seems to be more near his rectum and kind of radiating into his penis. On exam there is no evidence of masses or cellulitic changes and there is no evidence for hernias. Testicles are nontender. Etiology of his pain is unclear. Will refer to urology for follow-up. Will give a prescription for [place] for pain. Other additions or changes: [None] Lab Data Attestation: I reviewed the patient's lab results. Labs: Laboratory Results - last 24 hr 04/25/24 04/25/24 11:10 11:40 WBC 6.6 RBC 4.51 L Hgb 14.0 Hct 42.9 MCV 95.1 H MCH 31.0 MCHC 32.6 RDW Std Deviation 47.1 H RDW Coeff of [place] 13.3 Plt Count 320 MPV 9.8 Immature Gran % (Auto) 0.800 Neut % (Auto) 49.0 Lymph % (Auto) 28.7 [place] % (Auto) 17.6 H Eos % (Auto) 3.3 Baso % (Auto) 0.6 Absolute Neuts (auto) 3.2 Absolute Lymphs (auto) 1.89 Nucleated RBC % 0 Sodium 140 Potassium 4.0 Chloride 106 Carbon Dioxide 19.0 L Anion Gap 15 BUN 18 Creatinine 1.1 Estim Creat Clear Calc 60.40 Est GFR (MDRD) Non-Af 70 BUN/Creatinine Ratio 17.3 Glucose 89 Calcium 9.1 Total Bilirubin 0.33 AST 40 H ALT 38 Alkaline Phosphatase 92 Total Protein 7.3 Albumin 4.1 Globulin 3.2 Albumin/Globulin Ratio 1.3 Urine Color Yellow Urine Clarity Sl. Cloudy Urine pH 5.0 Ur Specific [place] 1.025 Urine Protein 30 H Urine Glucose (UA) Normal Urine Ketones Negative Urine Occult Blood 250 H Urine Nitrite Negative Urine Bilirubin Negative Urine Urobilinogen Normal Ur Leukocyte Esterase Negative Urine RBC 25-50 SEEN Urine WBC 0 SEEN Ur Squamous Epith Cells 0-5 SEEN Urine Bacteria 0 SEEN Urine Mucus 0 SEEN Radiography Diagnostic Testing: Clinical Impression(s) from Imaging Studies Abdomen/Pelvis CT 04/25/24 11:06 IMPRESSION: Multiple hepatic cysts. Small gallstones. Diffuse bladder wall thickening with mild increased markings in the surrounding fat suggestive of possible inflammatory change. Ileostomy seen in the right lower quadrant. Stable presacral soft tissue density. One or more dose reduction techniques were used (e.g., Automated exposure control, adjustment of the mA and/or kV according to patient size, use of iterative reconstruction technique). Reading Location: [facility] Discharge Plan Triage Chief Complaint: Abd Pain ED Midlevel Provider: Tejal Bassett ED Provider: Donovan Mccabe Dx/Rx/DC Orders Clinical Impression: Abdominal pain, Microscopic hematuria, History of colostomy Instructions: Abdominal Pain Prescriptions: New hydrocodone-acetaminophen 5-325 mg tablet 1 tab PO Q6H PRN PRN (Reason: Pain) 3 Days Qty: 12 0RF No Action aspirin [Adult Low Dose Aspirin] 81 mg tablet,delayed release (DR/EC) 81 mg PO DAILY magnesium 250 mg tablet 500 mg PO DAILY coenzyme Q10 [Co Q-10] 50 mg capsule 100 mg PO DAILY Patient Comments: SUPPLIMENT cholecalciferol (vitamin D3) 50 mcg (2,000 unit) capsule 4,000 unit PO DAILY multivitamin Tablet 1 tab PO DAILY clopidogrel [Plavix] 75 mg tablet 75 mg PO DAILY sennosides-docusate sodium [Stimulant Laxative Plus] 8.6-50 mg Tablet 2 tab PO BID PRN (Reason: constipation) Qty: 30 0RF rosuvastatin 10 mg tablet 10 mg PO QDAY Qty: 90 3RF Primary Care Provider: Meme Keith Referrals: Mau Mckeon MD [Med Staff - Active Staff] - Meme Keith MD [Primary Care Provider] - Activity Restrictions/Additional Instructions: I am not sure what is causing her pain. There is a small amount of blood in your urine and since you are having urinary frequency I recommend you follow-up with urology. Print Language: Burkinan Disposition Disposition: Home, Self Care
--- NOTE | 2024-04-25 11:06 | CT_ITS ---
PROCEDURE: ABDOMEN/PELVIS W IV CONT ONLY REASON FOR EXAM: History of bladder and rectal cancer. Ileostomy. Radiation and chemotherapy. TECHNIQUE: Abdomen and pelvis CT with intravenous contrast. No oral contrast. IV CONTRAST: 100 cc of Isovue-300. COMPARISON: Comparison is made with prior study dated February 01, 2022. FINDINGS: Lung bases: Clear coronary artery calcification. Liver: Once again, there are multiple bilateral cysts in both the right and left lobes of the liver. The previously seen hepatic subcapsular hematoma as cleared. Gallbladder: Several calcified gallstones. Spleen: Unremarkable. Metallic clips are seen in the region of the splenic hilum suggestive of possible embolization material within the splenic artery. Pancreas: Unremarkable. Adrenals: Unremarkable. Kidneys: Unremarkable. Bladder: An ileostomy is seen in the anterior right lower abdominal wall. Diffuse bladder wall thickening with increased markings in the surrounding fat. Possible cystitis should be ruled out. Reproductive Organs: Unremarkable. Bowel: Thickening of the rectal stump with stable increased soft tissue density in the presacral space. Anastomosis is seen in the distal portion of the rectum. Appendix: Normal. Lymph nodes: No suspicious lymph node enlargement. Vasculature: Mild diffuse atherosclerotic calcifications are noted. Peritoneum / Retroperitoneum: No ascites. No free air. Bones: Degenerative changes of the spine. CT/Abdomen/Pelvis W IV Cont ONLY IMPRESSION: Multiple hepatic cysts. Small gallstones. Diffuse bladder wall thickening with mild increased markings in the surrounding fat suggestive of possible inflammatory change. Ileostomy seen in the right lower quadrant. Stable presacral soft tissue density. One or more dose reduction techniques were used (e.g., Automated exposure contr ol, adjustment of the mA and/or kV according to patient size, use of iterative reconstruction technique). Reading Location: [id number]
[2024-04-25 11:24] LABS: Absolute Lymphocyte Count 1.89 X10^3/uL (0.83-4.51); Absolute Neutrophil Count 3.2 X10^3/uL (2.0-7.7); Basophil# 0.04 X10^3/uL; Basophil% 0.6 % (0-1); Eosinophil# 0.22 X10^3/uL; Eosinophils% 3.3 % (0-5); Hematocrit 42.9 % (40-54); Lymphocyte # 1.89 X10^3/ul (0.83-4.51); Lymphocyte % 28.7 % (19-41); Mean Corp Hgb Conc 32.6 g/dL (32-36); Mean Corpuscular Volume 95.1 fL (80-94); Mean Platelet Vol. 9.8 fl (6.2-12.0); Monocyte# 1.16 X10^3/uL; Monocyte% 17.6 % (0-10); NRBC Flagged by Analyzer 0 % (0-5); Neutrophil # 3.23 X10^3/uL (2.7-7.7); Platelet Count 320 K/mm3 (150-450); RBC Distribution Width CV 13.3 % (11.6-14.6); RBC Distribution Width SD 47.1 fl (35.1-43.9); Red Blood Count 4.51 M/mm3 (4.6-6.2); White Blood Count 6.6 K/mm3 (4.4-11.0)
[2024-04-25 11:42] LABS: Bacteria 0 SEEN /hpf (None Seen); Mucous, Urine 0 SEEN /hpf (<or=2+); White Blood Cells 0 SEEN /hpf (0-5)
[2024-04-25 11:50] LABS: Color, Urine Yellow (Yellow); Glucose, Dipstick Normal (Normal); Ketone-Dipstick Negative (Negative); Leukocyte Esterase-Dipstick Negative /ul (Negative); Nitrite-Dipstick Negative (Negative); Occult Blood-Urine 250 /ul (Negative); Protein-Dipstick 30 mg/dl (Negative); Specific Gravity, Urine 1.025 (1.002-1.030); Urine Bilirubin Dipstick Negative (Negative); Urine Clarity Sl. Cloudy (Clear); Urine Urobilinogen Normal (Normal)
[2024-04-25 12:11] LABS: Red Blood Cells-Urine 25-50 SEEN /hpf (0-5); Squamous Epithelial Cells - UA 0-5 SEEN /hpf (0-5)
[2024-04-25 12:38] VITALS: BP 143/76; PULSE 58; RESP 16; O2SAT 97
[2024-04-25 14:12] VITALS: BP 141/84; PULSE 68; RESP 15; O2SAT 98
[2024-04-25] MEDS: Ketorolac 15 MG/ML Vial IV (14:26)
[2024-04-25 15:04] LABS: ALB/GLOB Ratio 1.3 RATIO (0.9-2.4); AST(SGOT) 40 U/L (<=37); Alanine Aminotransfer ALT/SGPT 38 U/L (<=46); Albumin, Serum 4.1 g/dL (3.4-4.8); Alkaline Phosphatase 92 U/L (40-129); BUN 18 mg/dL (4-19); BUN/Creat Ratio 17.3 RATIO (10-20); Creatinine, Serum 1.1 mg/dL (0.8-1.3); EST Glomerular Filtration Rate 70 (>60); Globulin 3.2 g/dL (2.2-4.2); Glucose 89 mg/dL (70-99); Protein, Total 7.3 g/dL (5.9-8.4); Total Bilirubin 0.33 mg/dL (0.00-1.30)
[2024-04-25 15:09] LABS: Anion Gap 15 (5-15); Calcium,Total 9.1 mg/dL (7.6-11.0); Chloride 106 mmol/L (98-107); Sodium Level 140 mmol/L (136-145)
[2024-04-25 15:29] VITALS: BP 140/75; PULSE 65; RESP 16; TEMP 36.9; O2SAT 98
== END 2024-04-25 15:30 | disposition home or self-care (01) ==
PROVIDERS: Physician Assistant; Emergency Provider Emergency Medicine; PCP Internal Medicine; Visit Provider Emergency Medicine
DX: R10.9 Unspecified abdominal pain (principal); Z93.2 Ileostomy status; Z93.3 Colostomy status; K80.20 Calculus of gallbladder without cholecystitis without obstruction; I25.10 Atherosclerotic heart disease of native coronary artery without angina pectoris; R31.29 Other microscopic hematuria; Z87.891 Personal history of nicotine dependence; I10 Essential (primary) hypertension; E78.00 Pure hypercholesterolemia, unspecified; N32.89 Other specified disorders of bladder; Z79.82 Long term (current) use of aspirin; Z85.048 Personal history of other malignant neoplasm of rectum, rectosigmoid junction, and anus; K21.9 Gastro-esophageal reflux disease without esophagitis
CPT/HCPCS: 74177; 80053; 81001; 85025; 87086; 87088; 96374; 99283; Q9967; A4216

== ENCOUNTER → 2024-08-01 | Outpatient (CLI) | payer MEDICARE, OTHER, SELFPAY ==
--- NOTE | 2024-08-01 08:47 | ART_ITS ---
Reason For Study Reason For Study: s/p left subclavian artery stent Procedure A bilateral upper extremity continuous wave Doppler with analog waveform analysis and segmental pressures. Left Segmental Pressures Left brachial= 138mmHg. Left ulnar= 164mmHg. Left radial= 165mmHg. Left digit = 138 mmHg. The left brachial waveforms are triphasic. The left radial waveforms are biphasic. The left ulnar waveforms are biphasic. Right Segmental Pressures Right brachial= 142mmHg. Right ulnar= 159mmHg. Right radial= 173mmHg. Right digit = 130 mmHg. The right brachial waveforms are triphasic. The right radial waveforms are triphasic. The right ulnar waveforms are triphasic. Indices The right wrist-brachial index by the radial artery is 1.22. The right wrist- brachial index by the ulnar artery is 1.12. The right digital-brachial index is 0.92. The left wrist-brachial index by the radial artery is 1.16. The left wrist- brachial index by the ulnar artery is 1.15. The left digital-brachial index is 0.97. VL/Upper Extremity Arterial Study Interpretation Summary Right wrist-brachial index 1.22, normal. Digit-brachial index and PVR/Doppler w aveforms of the right arm normal at rest. Left wrist-brachial index 1.16, normal. Digit-brachial index and PVR/Doppler wa veforms of the left arm normal at rest. Ordering Physician: Naty Amato Referring Physician: Meme Keith M.D. Performed By: Isaura Faria RVT
== END | disposition home or self-care (01) ==
LOC: CVS 08:47
PROVIDERS: PCP Internal Medicine; Referring Provider Physician Assistant; Visit Provider Physician Assistant
DX: Z48.812 Encounter for surgical aftercare following surgery on the circulatory system (principal); I77.1 Stricture of artery; I73.9 Peripheral vascular disease, unspecified
CPT/HCPCS: 93923

== ENCOUNTER → 2024-09-20 | Outpatient (CLI) | payer MEDICARE, OTHER, SELFPAY ==
--- NOTE | 2024-09-20 10:18 | MRI_ITS ---
PROCEDURE: SPINE THORACIC W/WO CONTRAST 09/20/2024 REASON FOR EXAM: THORACIC RADICULOPATHY AND HISTORY OF GI MALIGNANC TECHNIQUE: Thoracic spine MRI without and with intravenous gadolinium-based contrast. Multiplanar and multisequence images were obtained. CONTRAST: MultiHance VOLUME: 17ML 20 gauge IV COMPARISON: None. FINDINGS: Vertebrae: Unremarkable. No abnormal enhancement. Alignment: Normal. Spinal Cord: Unremarkable. Disc spaces: Multilevel degenerate changes without significant canal stenosis. Paraspinal Tissues: No abnormal enhancement. Unremarkable. Postcontrast images: Unremarkable. MRI/Spine Thoracic W/WO Contrast IMPRESSION: Unremarkable pre and post contrast MRI thoracic spine. No evidence of acute pr ocess. Reading Location: [id number]
== END | disposition home or self-care (01) ==
LOC: MRI 10:14
PROVIDERS: PCP Internal Medicine; Referring Provider Orthopaedic Surgery Orthopaedic Surgery of the Spine; Visit Provider Orthopaedic Surgery Orthopaedic Surgery of the Spine
DX: M54.14 Radiculopathy, thoracic region (principal); Z85.00 Personal history of malignant neoplasm of unspecified digestive organ
CPT/HCPCS: 72157; A9575

== ENCOUNTER 2024-09-22 08:30 | Outpatient (RCR) | payer MEDICARE, OTHER, SELFPAY ==
--- NOTE | 2024-08-29 11:24 | HP.PTEVAL_ITS ---
Patient's Visit Information Visit Information Visit Information: JAI MOREJON is a 74 year old M referred to Physical Therapy by Dr. Howard Siddiqui MD with a diagnosis of Lumbar stenosis. Date of Evaluation: 08/29/24 Physical Therapist: Vinh Sweeney, PT, ATC Visit Plan Frequency: 2x /Week Duration: 3 Weeks Plan: SKTC/DKTC stretching, Postural edu, L/S stab ex's, and HEP Subjective Subjective: Pt reports he is here for his stenosis of his LB. Pt reports this pain has been present for many years. Pt notes he played a lot of golf over the years and always carried his bag, and he believes that may be what has caused his pain. Pt notes walking any distance now at this time is very difficult. Pt reports his doctor believes he may have to have surgery in the near future, but wants to try PT first. Pt reports tingling and numbness in his L LE at this time when he ambulates a lot. Pt reports this has resulted in his L LE becoming weak. Pt notes he has had an x-ray on his L/S which revealed spinal stenosis. Pt is retired at this time. Pt reports he is limited with all outside yard duties secondary to his pain. Pt denies sleep difficulty at this time secondary to pain. Pt reports sitting will help to decrease his pain. 0/10 pain while sitting here in the clinic, but notes his pain increases to 10/10 at worst. Pain Low back pain: Pain Intensity (Out of 10): 0 Pain Intensity Range: 10 Objective Objective: Neuro: L LE is hyposensitive to light touch. R LE is WNL. MMT: L knee ext rated at 4/5. All other B LE MMT is grossly 5/5 throughout and equal bilaterally. ROM: Pt is moderately limited with L/S extension. All other motions are WNL throughout. Repeated movements: SKTC and DKTC 10 sec x 3 ea decreased pain. Balance/Special Test Scores Oswestry Low Back Score: 7 Goals Goal 1:: Decrease LBP x 50% to aid with ambulation Goal Time Frame: 2-4 Weeks Goal 2:: Decrease the frequency and intensity of L LE radiculopathy c 50% to aid with IADL's Goal Time Frame: 2-4 Weeks Goal 3:: I with HEP Goal Time Frame: 2-4 Weeks Rehabilitation Potential Physical Therapy Diagnosis: Pt reports LBP, L LE radiculopathy, and decreased L/S ROM secondary to stenosis of the L/S Rehabilitation Potential: Good Anticipated Interventions Patient/Client Instruction: Educate patient on: Condition and Plan of Care For the Purpose of:: To improve self management Therapeutic Exercise to Include: Strength training, Endurance training, Body mechanics, Postural training and Dynamic Lumbar Stabilization For the Purpose of:: To decrease pain, To increase ROM and To improve muscle p erformance and motor function Text: Thank you for the opportunity to evaluate your patient. For Medicare and Medicare HMO plans, please review the plan of care and approve it. It will need to be FAXED BACK to us at [phone] for Medicare purposes. For Medicare only, by signing this I certify the plan of care. Please let me know if there are questions or concerns regarding this plan of care. Physician Signature: Date:
--- NOTE | 2024-09-22 09:03 | HP.PTDCSUM ---
Discharge Summary D/C summary: It has been my pleasure to treat JAI MOREJON referred by Dr. Howard Siddiqui MD, with the diagnosis of Lumbar stenosis for a total of 6 visit(s). Discharge Date: Please see the following information for a summary of their discharge status. Subjective Subjective: Pt reports his strength and mobility have improved. His pain is still about the same Pain Low back pain: Pain Intensity (Out of 10): 0 Overall Improvement % Improvement: 70 Objective Objective/Function: LBP is 0/10 today, but still increases with ambulation L LE radiculopathy is unchanged Pt is I with HEP Goals Goal 1:: Decrease LBP x 50% to aid with ambulation Goal Progress: Goal Met Goal 2:: Decrease the frequency and intensity of L LE radiculopathy c 50% to aid with IADL's Goal Progress: Not Progressing Goal 3:: I with HEP Goal Progress: Goal Met Plan Plan: Discharge to [facility] D/C Information d/c sentence: If there are questions or concerns regarding this patient's physical therapy, please feel free to call me at [phone]. Thank you for the referral of this patient. Sincerely, Vinh Sweeney, PT, ATC Balance/Gait/Functional tests Balance/Special Test Scores Oswestry Low Back Score: 6 Improvement % Improvement: 70
== END 2024-09-22 09:26 | disposition home or self-care (01) ==
LOC: PT 08:30
PROVIDERS: PCP Internal Medicine; Referring Provider Orthopaedic Surgery Orthopaedic Surgery of the Spine; Visit Provider Orthopaedic Surgery Orthopaedic Surgery of the Spine
DX: M48.061 Spinal stenosis, lumbar region without neurogenic claudication (principal)
CPT/HCPCS: 97110; 97140; 97161; 97530

== ENCOUNTER → 2024-10-10 | Outpatient (CLI) | payer MEDICARE, OTHER, SELFPAY ==
--- NOTE | 2024-10-10 07:41 | ADUUE_ITS ---
Reason For Study Reason For Study: Lt Subclavian A Stent LEFT Left Subclavian Prox velocity = 165.6 cm/sec. Left Subclavian Mid velocity = 191.9 cm/sec. Left Subclavian Dist velocity = 168.3 cm/sec. Unable to visualize Subclavian Stent. Left Axillary velocity = 76.6 cm/sec. Left Brachial velocity = 140.3 cm/sec. Left Radial velocity = 92.0 cm/sec. Left Ulnar velocity = 73.6 cm/sec. /US Art Duplex Unilat UP Extrem Interpretation Summary Left subclavian/axillary arteries patent with normal velocities and no evidence of stenosis. Ordering Physician: Naty Amato Referring Physician: Meme Keith Performed By: Saúl Pearson RVT
--- NOTE | 2024-10-10 07:41 | ART_ITS ---
Reason For Study Reason For Study: S/P Lt Subclavian A Stent Procedure A bilateral upper extremity continuous wave Doppler with analog waveform analysis and segmental pressures. Left Segmental Pressures Left brachial= 128mmHg. Left forearm by way of the radial artery = 147mmHg. Left radial= 160mmHg. Left ulnar= 140mmHg. Left digit = 156 mmHg. The left brachial waveforms are triphasic. The left radial waveforms are triphasic. The left ulnar waveforms are triphasic. Right Segmental Pressures Right brachial= 132mmHg. Right forearm pressure by way of the radial artery = 145mmHg. Right radial= 171mmHg. Right ulnar= 150mmHg. Right digit = 143 mmHg. The right brachial waveforms are triphasic. The right radial waveforms are triphasic. The right ulnar waveforms are triphasic. Indices The right wrist-brachial index is 1.30. The right digital-brachial index is 1.08. The left wrist-brachial index is 1.21. The left digital-brachial index is 1.18. VL/Upper Extremity Arterial Study Interpretation Summary Right wrist-brachial index 1.3, normal. Digit index and Doppler/PVR waveforms o f the right arm normal at rest. Left wrist-brachial index 1.21, normal. Digit index and Doppler/PVR waveforms o f the left arm normal at rest. Ordering Physician: Naty Amato Referring Physician: Meme Keith Performed By: Saúl Pearson, RVT
== END | disposition home or self-care (01) ==
LOC: CVS 07:40
PROVIDERS: PCP Internal Medicine; Referring Provider Physician Assistant; Visit Provider Physician Assistant
DX: I77.1 Stricture of artery (principal)
CPT/HCPCS: 93923; 93931

== ENCOUNTER 2025-01-02 14:50 | Observation (INO) | payer MEDICARE, OTHER, SELFPAY ==
--- NOTE | 2024-12-19 17:40 | PAT.ANESEVAL ---
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 When Was Last Pacemaker Check QUESTION #4 FULL TEXT: You/Your Family Experience fever (hyperthermia) with Anesthesia Last Oral Intake Last Oral intake: Last Oral Intake NPO since Meds taken in AM with sips of water? 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 manager Female No 12/19/24 10:25 HX of Motion Sickness No 12/19/24 10:25 HX of N/V After Surgery No 12/19/24 10:25 Non-Smoker Yes 12/19/24 10:25 Duration of Surgery greater Yes 12/19/24 10:25 than 60 minutes Number of Risk Factors 2 12/19/24 10:25 PONV Score Moderate Risk 12/19/24 10:25 Height & Weight Height & Weight: Anesthesia: Height & Weight Height 5 ft 6 in 10/13/24 08:58 Respiratory Assessment Respiratory Assessment - poultry barn manager: Respiratory Tract Infection Hx - poultry barn manager Hx Respiratory Tract Infection No 12/19/24 10:25 STOP Sleep Apnea STOP Sleep Apnea - poultry barn manager: STOP Sleep Apnea - poultry barn manager Hx Hypertension No 12/19/24 10:25 Hx Sleep Apnea No 12/19/24 10:25 CPAP No 12/19/24 10:25 BIPAP No 12/19/24 10:25 Do you snore loudly (louder No 12/19/24 10:25 than talking or can be heard Do you often feel tired/ No 12/19/24 10:25 fatigued/ sleepy during daytime? Has anyone observed you stop No 12/19/24 10:25 breathing during sleep? STOP Results Negative 12/19/24 10:25 QUESTION #5 FULL TEXT : Do you snore loudly (louder than talking or can be heard through closed doors)? 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 Specify any problems Hx of Preganancy in last 3 N/A 12/19/24 10:25 Months Nurse Filling Out Transfusion NBUCHER 12/19/24 10:25 & Questions: Date: 12/19/24 12/19/24 10:25 Time: 10:12/19/24 10:25 Patient unable to answer at this time (ie. confused, unrespo /Reproduction History /Reproductive History - poultry barn manager: /Reproductive Hx- poultry barn manager Hx Now No 12/19/24 10:25 Gestational Age (in weeks): EDC: Hx Hx Para Hx Section SAB No 12/19/24 10:25 PFSH Medical History (Updated 12/19/24 @ 10:31 by Enid Francis) Leg cramps Obesity (BMI 30.0-34.9) MRSA (methicillin resistant staph aureus) culture positive Deaf Wears hearing aid Wears glasses Cancer High cholesterol DVT (deep venous thrombosis) Injury of head and neck Loss of consciousness Gastric reflux Former smoker History of edema History of echocardiogram History of stress test Cardiology follow-up encounter Pulmonary embolism Gastric artery aneurysm Ileostomy present Rectal cancer Intra abdominal hemorrhage Dilated aortic root 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 Subclavian artery stenosis, left GERD (gastroesophageal reflux disease) Meniere's disease Bilateral carotid artery stenosis Old myocardial infarction Premature ventricular contraction Peripheral vascular disease Presence of stent in coronary artery (~12/22/16) Essential hypertension Atherosclerotic heart disease of [place] coronary artery without angina pectoris Hypoacusis Dyslipidemia HTN (hypertension) CAD (coronary artery disease) Home Medications ?Medication ?Instructions ?Recorded ?Last Taken ?Type coenzyme Q10 50 mg capsule (Co 100 mg PO DAILY vitamin 03/04/18 01/18/24 History Q-10) cholecalciferol (vitamin D3) 50 4,000 unit PO DAILY vitamin 07/21/19 01/17/24 History mcg (2,000 unit) capsule aspirin 81 mg tablet,delayed 81 mg PO DAILY 05/05/23 01/17/24 History release (Adult Low Dose Aspirin) magnesium 250 mg tablet 500 mg PO DAILY 05/05/23 01/14/24 History rosuvastatin 10 mg tablet 10 mg PO QDAY #90 tabs 11/10/23 01/18/24 Rx multivitamin 1 tab PO DAILY 01/04/24 01/18/24 History calcium 600 mg capsule 1,200 mg PO DAILY 12/19/24 Unknown History clopidogrel 75 mg tablet 75 mg PO DAILY 12/19/24 Unknown History Allergy/AdvReac Type Severity Reaction Status Date / Time clindamycin Allergy Intermediate Abd Verified 12/19/24 10:23 cramps/diarrhea cat dander (cats) AdvReac PT UNSURE Verified 12/19/24 10:23 OF REACTION codeine AdvReac Upset Verified 12/19/24 10:23 Stomach Family History Father CAD (coronary artery disease) Myocardial infarction, Onset Age: 45 Mother Carotid artery stenosis Surgical History (Updated 12/19/24 @ 10:31 by Enid Francis) History of fusion of cervical spine (01/18/24) History of coronary artery stent placement Presence of coronary angioplasty implant and graft (~12/22/16) History of tonsillectomy History of transurethral resection of prostate (~09/2016) S/P CABG (coronary artery bypass graft) (~09/16/98) S/P PTCA (percutaneous transluminal coronary angioplasty) (~12/22/16) Social History Smoking Status: Former smoker how long ago did patient quit smokin alcohol intake: current details: occasional Audit: Pertinent Findings Pertinent Findings EKG Perinent findings: November 29, 2024. Normal sinus rhythm. Right bundle branch block. No change from EKG of January 05, 2024. Stress test pertinent findings: 01/03/2024. EF is 77%. No fixed or reversible perfusion defects noted on SPECT Cardiolite nuclear imaging. Echo (EF%) pertinent findings: March 03, 2022. EF of 73%. Right ventricular systolic function is normal. Difficult exam due to body habitus. 01/16/2022. EF is 65%. RVSP is 29 mmHg. No aortic valve stenosis noted. Consult pertinent findings: 11/29/2024. Ronnie BARRAGANC. 1. Atherosclerotic heart disease of [place] coronary artery without angina pectoris-history of CABG in 1994. Subsequent stenting procedures the latest being in November 2016. Patent MURPHY to the LAD. Patent graft to the OM branch of the circumflex. Occluded graft to the distal right coronary artery however the RCA has been stented in 2016. LV function is normal. Latest stress test as above (normal). 2. Peripheral vascular disease-significant. Followed by vascular. 3. Hypertension?well-controlled. 4. Preop cardiovascular exam-latest EKG is normal sinus rhythm and no change from 2023. Most recent stress test was negative for ischemia. Latest echo showed EF of 73%. Patient is active without exertional symptoms. Limitation is leg weakness. Greater than 1 year out from last cardiac intervention, he will discontinue Plavix. May hold aspirin for 7 days prior to procedure and resume postop. Recommendation Anesthesia Recommendation Anesthesia recommendation: OPTIMIZED for anesthesia
[2024-12-20 12:45] LABS: Hematocrit 42.6 % (40-54); Hemoglobin 14.3 g/dL (13.0-16.5); Immature Granulocytes Count 0.030 X10^3/uL (0.0-0.0); Mean Corp Hgb Conc 33.6 g/dL (32-36); Mean Corpuscular Volume 92.8 fL (80-94); Mean Platelet Vol. 10.3 fl (6.2-12.0); NRBC Flagged by Analyzer 0 % (0-5); Platelet Count 229 K/mm3 (150-450); RBC Distribution Width CV 14.0 % (11.6-14.6); RBC Distribution Width SD 48.1 fl (35.1-43.9); Red Blood Count 4.59 M/mm3 (4.6-6.2); White Blood Count 7.6 K/mm3 (4.4-11.0)
[2024-12-20 13:22] LABS: Anion Gap 11 (5-15); BUN 18 mg/dL (4-19); BUN/Creat Ratio 14.7 RATIO (10-20); Calcium,Total 8.9 mg/dL (7.6-11.0); Carbon Dioxide 20.5 mmol/L (21.0-32.0); Chloride 106 mmol/L (98-108); Glucose 100 mg/dL (70-99); Magnesium 2.3 mg/dL (1.5-2.2); Potassium 4.2 mmol/L (3.3-5.1)
[2025-01-02] VITALS (12 sets, daily range): BP systolic 130–153; BP diastolic 68–96; PULSE 74–106; RESP 16–20; TEMP 36.1–36.9; O2SAT 93–99; BMI 31.3
[2025-01-02] MEDS: Magnesium 1 GM over 15 mins IV (10:45)
[2025-01-02] MEDS: Lactated Ringers 1,000 ML 15 ML IV (10:45)
--- NOTE | 2025-01-02 11:00 | RAD_ITS ---
EXAM: XR Lumbosacral Spine, 2 or 3 Views CLINICAL INDICATION: ERAS, LUMBAR LAMINECTOMY L3-4 AND L4-5 TECHNIQUE: Frontal and lateral views of the lumbar spine and sacrum. COMPARISON: No relevant prior studies available. FINDINGS: 1 fluoroscopic image. Total fluoroscopy time 34 seconds. Total radiation dose 1.8 mGy. RAD/Lumbar Spine 2 or 3 Views IMPRESSION: Fluoroscopic guidance was used intraoperatively. Please refer to the operative note for further details. Reading Location: [facility]
--- NOTE | 2025-01-02 11:01 | PCM.PRE.AN2 ---
ASA Classification* ASA Classification ASA Classification: 3 Assessment & Plan Anesthesia* Anesthesia Assessment Anesthesia Assessment: Discussed sedation and/or anesthesia options, risks, benefits, and alternatives with patient/parents/legal guardian/POA. Questions invited. The patient/parents/legal guardian/POA seems to understand and agrees to proceed with anesthesia plan. Reviewed the physical assessment, medical history, allergy history and patient home medications list prior to surgery/procedure/anesthetic and documented any changes. Performed airway and anesthesia risk assessments. Anesthesia Type Anesthesia Type: General (Consider GlideScope intubation.) History Source History Obtained from:: Patient and Chart Anesthesia Focused Assessment* Temperature: 98.4 F Pulse Rate: 74 Blood Pressure: 149/88 Respiratory Rate: 18 Pulse Ox: 96 Oxygen Delivery Method: Room Air Airway Assessment Mouth opens: >3 cm Mallampati Score: I Teeth Condition: Caps/Crowns (Patient has 4 implants. They are tight.) and Partial (Top partial is out.) Neck Range of motion (ROM): Limited ROM (Severe Restriction secondary to cervical fusion.) Labs Anesthesia Preop lab: CBC WBC, (4.4-11.0) 7.6 K/mm3 12/20/24, 12:17 RBC, (4.6-6.2) 4.59 M/mm3 L 12/20/24, 12:17 Hgb, (13.0-16.5) 14.3 g/dL 12/20/24, 12:17 Hct, (40-54) 42.6 % 12/20/24, 12:17 Plt Count, (150-450) 229 K/mm3 12/20/24, 12:17 CHEMISTRY Potassium, (3.3-5.1) 4.2 mmol/L 12/20/24, 12:17 Sodium, (133-145) 138 mmol/L 12/20/24, 12:17 Magnesium, (1.5-2.2) 2.3 mg/dL H 12/20/24, 12:17 BUN, (4-19) 18 mg/dL 12/20/24, 12:17 Creatinine, (0.70-1.20) 1.25 mg/dL H 12/20/24, 12:17 Glucose, (70-99) 100 mg/dL H 12/20/24, 12:17 POC Glucose, (74-106) 69 mg/dL L Today, 10:33 COAG PT, (11.7-14.9) 15.6 SECONDS H 03/01/22, 20:23 Pre-Assessment Diagnosis/Proposed Procedure Planned Operative Procedure(s): Lumbar laminectomy L3-4 and L4-5 Anesthesia History 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 When Was Last Pacemaker Check QUESTION #4 FULL TEXT: You/Your Family Experience fever (hyperthermia) with Anesthesia Last Oral Intake Last Oral intake: Last Oral Intake NPO since 06:00 01/02/25 10:35 Meds taken in AM with sips of Yes 01/02/25 10:35 water? Meds patient instructed to rosuvastatin, multivitamin 01/02/25 10:35 take am of surgery Any additional information?: Yes NPO since: 06:00 (Patient had a bottle of preop Ensure at 6 AM.) Meds taken in AM with sips of water?: Yes PONV PONV - manager business continuity: PONV - manager business continuity Female No 12/19/24 10:25 HX of Motion Sickness No 12/19/24 10:25 HX of N/V After Surgery No 12/19/24 10:25 Non-Smoker Yes 12/19/24 10:25 Duration of Surgery greater Yes 12/19/24 10:25 than 60 minutes Number of Risk Factors 2 12/19/24 10:25 PONV Score Moderate Risk 12/19/24 10:25 Height & Weight Height & Weight: Anesthesia: Height & Weight Height 5 ft 6 in 01/02/25 10:35 Weight: 88 kg 01/02/25 10:35 Body Mass Index (BMI) 31.3 01/02/25 10:35 Respiratory Assessment Respiratory Assessment - manager business continuity: Respiratory Tract Infection Hx - manager business continuity Hx Respiratory Tract Infection No 12/19/24 10:25 STOP Sleep Apnea STOP Sleep Apnea - manager business continuity: STOP Sleep Apnea - manager business continuity Hx Hypertension No 12/19/24 10:25 Hx Sleep Apnea No 12/19/24 10:25 CPAP No 12/19/24 10:25 BIPAP No 12/19/24 10:25 Do you snore loudly (louder No 12/19/24 10:25 than talking or can be heard Do you often feel tired/ No 12/19/24 10:25 fatigued/ sleepy during daytime? Has anyone observed you stop No 12/19/24 10:25 breathing during sleep? STOP Results Negative 12/19/24 10:25 QUESTION #5 FULL TEXT : Do you snore loudly (louder than talking or can be heard through closed doors)? 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 Specify any problems Hx of Preganancy in last 3 N/A 12/19/24 10:25 Months Nurse Filling Out Transfusion NBUCHER 12/19/24 10:25 & Questions: Date: 12/19/24 12/19/24 10:25 Time: 10:12/19/24 10:25 Patient unable to answer at this time (ie. confused, unrespo /Reproduction History /Reproductive History - manager business continuity: /Reproductive Hx- manager business continuity Hx Now No 12/19/24 10:25 Gestational Age (in weeks): EDC: Hx Hx Para Hx Section SAB No 12/19/24 10:25 Active Medications Active Medications: Current Medications Generic Name Dose Route Start Last Admin Trade Name Freq PRN Reason Stop Dose Admin Acetaminophen 1,000 mg 01/02/25 12:00 01/02/25 10:46 Acetaminophen 500 Mg Tablet PO 01/02/25 12:01 1,000 mg PREOP ONE Administration Cefazolin Sodium 2 gm/ Sodium 110 mls @ 150 mls/hr 01/02/25 12:00 Chloride IV 01/02/25 12:43 INTRAOP ONE Tranexamic Acid 1,000 mg/ 110 mls @ 440 mls/hr 01/02/25 12:00 Sodium Chloride IV 01/02/25 12:14 INTRAOP ONE Tranexamic Acid 1,000 mg/ 110 mls @ 440 mls/hr 01/02/25 12:00 Sodium Chloride IV 01/02/25 12:14 INTRAOP ONE Magnesium Sulfate 1 gm/ 102 mls @ 408 mls/hr 01/02/25 12:00 01/02/25 10:45 Dextrose IV 01/02/25 12:14 408 mls/hr PREOP ONE Administration Lactated Ringer's 1,000 mls @ 15 mls/hr 01/02/25 10:15 01/02/25 10:45 IV 15 mls/hr .Q48H AUDREY Administration Insulin Human Lispro 1 - 6 unit 01/02/25 12:00 Insulin Lispro 100 Unit/Ml Insuln.Pen SC 01/02/25 16:00 Q4H PRN PRN BG>/= 180, SEE PROTOCOL Protocol PFSH Medical History Leg cramps Obesity (BMI 30.0-34.9) MRSA (methicillin resistant staph aureus) culture positive Deaf Wears hearing aid Wears glasses Cancer High cholesterol DVT (deep venous thrombosis) Injury of head and neck Loss of consciousness Gastric reflux Former smoker History of edema History of echocardiogram History of stress test Cardiology follow-up encounter Pulmonary embolism Gastric artery aneurysm Ileostomy present Rectal cancer Intra abdominal hemorrhage Dilated aortic root 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 Subclavian artery stenosis, left GERD (gastroesophageal reflux disease) Meniere's disease Bilateral carotid artery stenosis Old myocardial infarction Premature ventricular contraction Peripheral vascular disease Presence of stent in coronary artery (~12/22/16) Essential hypertension Atherosclerotic heart disease of [place] coronary artery without angina pectoris Hypoacusis Dyslipidemia HTN (hypertension) CAD (coronary artery disease) Home Medications ?Medication ?Instructions ?Recorded ?Last Taken ?Type coenzyme Q10 50 mg capsule (Co 100 mg PO DAILY vitamin 03/04/18 01/18/24 History Q-10) cholecalciferol (vitamin D3) 50 4,000 unit PO DAILY vitamin 07/21/19 01/17/24 History mcg (2,000 unit) capsule aspirin 81 mg tablet,delayed 81 mg PO DAILY 05/05/23 12/26/24 History release (Adult Low Dose Aspirin) magnesium 250 mg tablet 500 mg PO DAILY 05/05/23 01/14/24 History rosuvastatin 10 mg tablet 10 mg PO QDAY #90 tabs 11/10/23 01/02/25 Rx multivitamin 1 tab PO DAILY 01/04/24 01/02/25 History calcium 600 mg capsule 1,200 mg PO DAILY 12/19/24 Unknown History Allergy/AdvReac Type Severity Reaction Status Date / Time clindamycin Allergy Intermediate Abd Verified 01/02/25 10:33 cramps/diarrhea cat dander (cats) AdvReac PT UNSURE Verified 01/02/25 10:33 OF REACTION codeine AdvReac Upset Verified 01/02/25 10:33 Stomach Family History Father CAD (coronary artery disease) Myocardial infarction, Onset Age: 45 Mother Carotid artery stenosis Surgical History History of fusion of cervical spine (01/18/24) History of coronary artery stent placement Presence of coronary angioplasty implant and graft (~12/22/16) History of tonsillectomy History of transurethral resection of prostate (~09/2016) S/P CABG (coronary artery bypass graft) (~09/16/98) S/P PTCA (percutaneous transluminal coronary angioplasty) (~12/22/16) Social History Smoking Status: Former smoker how long ago did patient quit smokin alcohol intake: current details: occasional Review of Systems (Anesthesia) ROS Narrative System reviewed and no additional complaints, except as documented.
--- NOTE | 2025-01-02 11:53 | HP.PCM_ITS ---
History and Physical Date of Admission: 01/02/25 MR#: [id number] Acct: [id number] Name: JAI MOREJON Rep #: [id number] : [id number] Provider: Dr. Howard Siddiqui MD Age/Sex: 74/M [place] [facility] [email or web address] Status: Signed Intake Vital Signs 10/14/2507:58 11/29/2506:49 12/22/2508:26 Height 5 ft 6 in 5 ft 6 in 5 ft 6 in Weight: 194 lb 190 lb BMI 31.3 30.7 Intake Visit Reasons: lumbar spine Chief Complaint: Lumbre spine pre op Accompanied by: Self Is patient in pain?: Yes Pain scale (1-10): 1 Allergies clindamycin Allergy (Intermediate, Verified 12/22/24 09:31) Abd cramps/diarrhea cat dander (cats) Adverse Reaction (Verified 12/22/24 09:31) PT UNSURE OF REACTION codeine Adverse Reaction (Verified 12/22/24 09:31) Upset Stomach Medications ?Medication ?Instructions ?Recorded ?Confirmed ?Type coenzyme Q10 50 mg capsule (Co 100 mg PO DAILY vitamin 03/04/18 5 History Q-10) cholecalciferol (vitamin D3) 50 4,000 unit PO DAILY vitamin 07/21/19 Hi story mcg (2,000 unit) capsule aspirin 81 mg tablet,delayed 81 mg PO DAILY 05/05/23 12/22/24 History release (Adult Low Dose Aspirin) magnesium 250 mg tablet 500 mg PO DAILY 05/05/23 12/22/24 Histor y rosuvastatin 10 mg tablet 10 mg PO QDAY #90 tabs 11/10/23 12/22/24 Rx multivitamin 1 tab PO DAILY 01/04/24 12/22/24 History calcium 600 mg capsule 1,200 mg PO DAILY 12/19/24 12/22/24 Hist ory clopidogrel 75 mg tablet 75 mg PO DAILY 12/19/24 12/22/24 History Have you fallen in the past year?: No PFSH Medical History Leg cramps Obesity (BMI 30.0-34.9) MRSA (methicillin resistant staph aureus) culture positive Deaf Wears hearing aid Wears glasses Cancer High cholesterol DVT (deep venous thrombosis) Injury of head and neck Loss of consciousness Gastric reflux Former smoker History of edema History of echocardiogram History of stress test Cardiology follow-up encounter Pulmonary embolism Gastric artery aneurysm Ileostomy present Rectal cancer Intra abdominal hemorrhage Dilated aortic root 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 Subclavian artery stenosis, left GERD (gastroesophageal reflux disease) Meniere's disease Bilateral carotid artery stenosis Old myocardial infarction Premature ventricular contraction Peripheral vascular disease Presence of stent in coronary artery (~12/22/16) Essential hypertension Atherosclerotic heart disease of [place] coronary artery without angina pectoris Hypoacusis Dyslipidemia HTN (hypertension) CAD (coronary artery disease) Surgical History History of fusion of cervical spine (01/18/24) History of coronary artery stent placement Presence of coronary angioplasty implant and graft (~12/22/16) History of tonsillectomy History of transurethral resection of prostate (~09/2016) S/P CABG (coronary artery bypass graft) (~09/16/98) S/P PTCA (percutaneous transluminal coronary angioplasty) (~12/22/16) Family History Father CAD (coronary artery disease) Myocardial infarction, Onset Age: 45 Mother Carotid artery stenosis Social History Smoking Status: Former smoker how long ago did patient quit smokin alcohol intake: current details: occasional HPI lumbar spine Details: This documentation accurately reflects the service provided and the decisions made by me, Dr. Howard Siddiqui MD 12/22/24925. Part of today?s visit was documented by Teagan Weems MA, acting as scribe. JAI MOREJON is a 74 year old M here today for lumbar spine pre op. Patient states that his pain is a 1 today. He has heard that some patient have to get this surgery done a second time. The patient is a 74-year-old male presenting for pre-operative evaluation and discussion regarding upcoming laminectomy surgery. The patient has a history of neck surgery performed earlier this year, which has resolved previous shoulder pain. He reports that his left arm is no longer painful, indicating successful surgical outcomes. The patient also has a history of an ostomy, which led to an ulcer due to the use of a convex ostomy bag. The ulcer healed completely after switching to a different type of bag as recommended by a stoma nurse at the [facility]. 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 He underwent surgery to remove the clots and was initially treated with Lovenox injections, followed by oral anticoagulants, and is currently on baby aspirin. - Musculoskeletal: Reports left leg aching and fatigue, denies significant back pain - Gastrointestinal: Denies current issues with ostomy, reports previous ulcer healed - Cardiovascular: Denies chest pain, reports history of blood clots - General: Denies use of antibiotics, reports good general health Attestation: Documentation on this patient encounter was supported using ambient scribe technology/ voice AI technology. The patient consented to recording for the purpose of documenting the encounter. Provider reviewed content of the generated note prior to signature. 10/13/24: JAI MOREJON is a 74 year old M here today for MRI review of the thoracic spine. He states that he is doing exercises at home and does continue to have the scapula pain. The pain is worse on the left side. He reports muscle cramps in his back that extends down into his legs. Patient denies any changes to his symptoms of his mid back. He does take Tylenol for pain as needed. He was able to walk a mile earlier this week. Yesterday he exacerbated the low back pain by doing yard work, he had to stop and sit down. The low back pain does radiate bilaterally into his legs, the left leg is the worst. He does take Plavix and Aspirin daily. Ortho Exam General General: Yes no acute distress Neurologic: Yes alert and Yes oriented x3 Psychologic: Yes reasonable and appropriate Exam Narrative - Musculoskeletal: Pain elicited upon certain movements of the left scapula and right shoulder, no tenderness in the upper back midline. - Neurological: Strength testing of upper and lower extremities was normal, with equal sensation bilaterally. - General: No acute distress observed. Lower extremity strength is 5 of 5 Coding Level of Care Code Off vis,est,level 4 Diagnoses Thoracic radiculopathy M54.14 Spinal stenosis of lumbar region with neurogenic claudication M48.062 Neurogenic claudication status: with neurogenic claudication Spinal stenosis of lumbar region with neurogenic claudication M48.062 Obesity (BMI 30.0-34.9) E66.811 Time Spent (min) 35 Assessment and Plan Assessment and Plan (1) Thoracic radiculopathy: Status: Acute (2) Lumbar stenosis: Status: Acute Qualifiers: Neurogenic claudication status: with neurogenic claudication Qualified Code(s): M48.062 - Spinal stenosis, lumbar region with neurogenic claudication (3) Spinal stenosis of lumbar region with neurogenic claudication: Status: Acute (4) Obesity (BMI 30.0-34.9): Status: Acute Plan I reviewed pt's previous imaging in detail. The MRI thoracic shows age related changes but do not show spinal cord compression or any explanation for the scapula pain. - Imaging: Upper back MRI shows age-related changes without nerve compression. 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 Lower back MRI indicates significant stenosis at L3-4 and L4-5 levels. 1. Lumbar spinal stenosis - The patient is scheduled for a laminectomy to alleviate leg symptoms and improve mobility. - The surgery involves a midline incision to remove the lamina, allowing more space for the nerves. - Post-operative care includes early mobilization and a follow-up visit in two weeks to assess healing and remove sutures. 2. History of neck surgery - The patient has recovered well from previous neck surgery with resolution of shoulder pain, indicating no current intervention is required. 3. History of ostomy with previous ulcer - The ulcer has healed following a change in ostomy bag type, and no further issues have been reported. 4. History of deep vein thrombosis - The patient is on baby aspirin for thrombosis prophylaxis, with instructions to stop aspirin one week before surgery and resume two days after to minimize bleeding risk. - Stop taking baby aspirin one week before surgery and resume two days after surgery. - Engage in early mobilization after surgery to aid recovery. - Avoid lifting heavy objects and excessive bending or twisting for three months post-surgery. - Attend follow-up visit two weeks after surgery for suture removal and assessment. We discussed that his low back symptoms are from stenosis. This has progressively gotten worse with non surgical treatment. We discussed surgery would be a laminectomy L3-5, he would like to proceed with this. I discussed the surgery in length including risks, benefits, alternatives, what to expect post operatively and post operative restrictions. The risks include but are not limited to infection, bleeding, hematoma formation, injury to nerves and vessels, nerve injury, persistent pain, persistent numbness and weakness, persistent difficulty walking, DVT, pulm embolism, pneumonia, atelectasis, cardiopulmonary event, need for further surgery, need for fusion in the future, iatrogenic instability. Patient understands and agrees to proceed with surgery. Consent was signed. All questions answered. Patient in agreement of plan.
[2025-01-02] MEDS: Midazolam 2 MG/2 ML Syringe IV (12:08)
[2025-01-02] MEDS: Lidocaine 1% (5 ml sdv) 5 ML Vial IV (12:15)
[2025-01-02] MEDS: Cefazolin 1 GM/5 ML Vial 2 GM IV (12:15)
[2025-01-02] MEDS: fentaNYL 100 MCG/2 ML Ampul 200 MCG IV (12:41)
[2025-01-02] MEDS: Lactated Ringers 2,000 ML 2000 ML IV (13:40)
[2025-01-02] MEDS: TRANEXAMIC ACID 1,000 MG/10 ML ML 2000 MG IV (14:07)
--- NOTE | 2025-01-02 14:49 | PCM.OPRPT ---
Procedures Musculoskeletal [id number]: Other Procedure See Report Operative Report (Standard) Operative Information Date of Procedure: 01/02/25 Pre-Operative Diagnosis: L3-5 stenosis with neurogenic claudication Post-Operative Diagnosis: Same Surgery/Procedure Performed: L3-5 laminectomy, partial facetectomy, foraminotomy, decompression casket trimmer: Yes Escapement Maker: Zaira De Jesus Tasks completed by first line production supervisor: Closing, Removing tissue, Hemostasis: Electrocautery and Retracting Type of Anesthesia: General RN Documented Start/Stop Times: Operation Date: 01/02/25 12:00 Case Time Into Pre-Op 01/02/25 10:11 Out of Pre-Op 01/02/25 12:03 Anesthesia Start 01/02/25 12:08 Into Room 01/02/25 12:08 Procedure Start 01/02/25 12:42 Procedure Start Time: 12:42 Procedure Stop Time: 14:45 Select all DRAINS/GRAFTS/IMPLANTS that apply: None Estimated Blood Loss: 30 cc Specimen collected: No Description of surgery: Preoperative diagnosis: L3-5 central lateral recess stenosis bilateral, neurogenic claudication Postoperative diagnosis: Same Name of procedure: L3-5 open laminectomy, partial facetectomy, foraminotomy Decompression of L5 nerve root CPT 84838 Decompression of L4 nerve root CPT 88683 Decompression of L3 nerve root CPT 34048 Attending Surgeon: Dr. Howard Siddiqui Estimated blood loss: 30 mL Anesthesia: General Indications: Patient is a 74-year-old gentleman who presented with low back pain and left worse than right lower extremity radiation, with difficulty walking distances and neurogenic claudication. MRI revealed L3-5 central, lateral recess and foraminal stenosis worse on the left. All options of treatment were discussed which included continued nonoperative treatment measures like rest physical therapy, injections. After prolonged nonsurgical treatment, patient requested surgical intervention for laminectomy. All risks and benefits associated with the procedure were explained to the patient. The risks include but are not limited to infection, bleeding, injury to nerves and vessels, persistent paresthesia, incidental dural tear, recurrent disc herniation, spinal instability and need for fusion or other procedures in future, persistent pain, persistent weakness and numbness, etc. Procedure: The patient was identified in the preoperative holding suite using Unique patient identifiers. Skin was marked, consent was reviewed, and all questions were answered. The patient was then brought back to the operative room. A surgical timeout was performed to make sure correct procedure was being done on the correct patient and all operative room staff were on the same page. General endotracheal anesthesia was then given to the patient. The patient was then turned prone onto a Jose table over a Kwesi frame. The back was prepped and draped in usual fashion. Preoperative antibiotic was given. A final timeout was then again done just before starting the procedure. An 18-gauge spinal needle was inserted and level was identified. An incision was then carried out in the midline at presumed L3-5 levels. Bovie was utilized to dissect through the subcutaneous tissue up to the fascia. The fascia was bovied at the spinous process. Subperiosteal dissection was carried out along the both side of the spinous process and the lamina. This dissection was stopped at the level of the medial capsule of the facet joint. Lateral edge of the pars was also identified. A Deshawn was then placed under the inferior edge of the lamina and a C-arm lateral view was repeated. The level was confirmed to be the L3-4 interspace. Exposure of L3-5 interspaces were then completed. A Raygoza retractor of appropriate depth was then placed to provide retraction throughout the remainder of the surgery. A bone cutter was used to remove the spinous process. Last Sizeonix bone scalpel was then utilized to first create a score along the area of the laminectomy. Care was taken to preserve at least 1 cm of bone from the lateral border of the pars. The bone scalpel was then advanced to perform the cuts along this score. The lamina was then removed with the help of rongeurs and curettes. The flavum was utilized to protect the dura and superior articular process was carefully from the flavum. Partial medial facetectomy was performed to provide adequate lateral recess decompression. All of the flavum was eventually removed. L3 laminectomy was extended superior enough to allow exposure and decompression of the L3 foramina on both sides. Left L3 foramen had very severe stenosis which was decompressed with Kerrison rongeurs. adequate decompression of all 3 nerve roots on both sides from L3, L4 and L5 was then confirmed with Pacific. irrigation was done with normal saline. Valsalva maneuver up to 40 mmHg pressure sustained was then done by anesthesia for a few seconds to confirm no dural leak. Irrisept was kept in the wound for 1 minute and then rinsed with saline. A small piece of Gelfoam was then placed over the bony window. The Raygoza retractor was then removed. And closure was done in layers, 0 Vicryl for the deep fascia, 2-0 Vicryl for subcutaneous tissue, and jesi for the skin. The deep fascial layer was closed in a watertight fashion with interrupted 0 Vicryl. 4 x 4 gauze was then placed over the wound covered with Tegaderm. The patient was then turned supine onto a hospital bed. The patient was extubated and taken to PACU in stable condition. The patient tolerated the procedure well and no complications occurred. Estimated blood loss for the entire surgery was 30 mL. No instrumentation was utilized in this case. No dural tear occurred in this case. I was present for the entirety of the case and performed the surgery myself. Insurance Administrator Zaira De Jesus PA-C. My physician registered nurse first assistant was a vital part of this case. They were important in appropriate retraction during the case, and protection of soft tissues during the procedure. Their intimate knowledge of the case and my steps aided in safe and expedient completion of the procedure as well as appropriate position of the patient during the surgery. They were also vital in assisting with closure under my direct supervision. Surgical Findings: See operative note Complications Complications: No
--- NOTE | 2025-01-02 14:57 | PCM.POST.ANE ---
Anesthesia: Postop Eval I Current Vital Signs Temperature: 96.9 F Pulse Rate: 77 Blood Pressure: 141/68 Respiratory Rate: 20 Pulse Ox: 94 Oxygen Delivery Method: Nasal Cannula Oxygen Flow Rate (L/min): 2 Assessment Airway patent: Yes Spontaneous unlabored respirations: Yes Mental status: Awake and Calm nausea: No Vomiting: No Anesthesia Complication: No Fluid Hydration Crystalloid volume administer (ml): 1,700 Total IV fluid infused: 1,700 Progress Note Anesthesia document: Postop Eval 1 completed: Yes
--- NOTE | 2025-01-02 15:56 | POSTOPAN2_ITS ---
Anesthesia Postop Eval I Sum Postop Eval Completion status Anesthesia document: Postop Eval 1 completed: Yes Anesthesia Postop Eval I Summary Anesthesia Postop Eval I Summary: Anesthesia Postop Eval I: Assessment Summary Airway patent Yes 01/02/25 14:58 [email or web address] Spontaneous unlabored Yes 01/02/25 14:58 [email or web address] respirations Mental status Awake,Calm 01/02/25 14:58 [email or web address] nausea No 01/02/25 14:58 [email or web address] Vomiting No 01/02/25 14:58 [email or web address] Anesthesia Postop Eval I: Fluid Summary Crystalloid volume administer 1,700 01/02/25 14:58 [email or web address] (ml) Colloids volume administered ( ml) Blood Product volume administered (ml) Total IV fluid infused 1,700 01/02/25 14:58 [email or web address] Anesthesia Postop Eval I: Summary Notes Anesthesia Complication No 01/02/25 14:58 [email or web address] Anesthesia Complication Comment: Post-operative progress note Anesthesia: Postop Eval II Evaluation Mental status: Awake and Calm Pain Level: 4 nausea: No Vomiting: No Complications Anesthesia Complication: No
--- NOTE | 2025-01-02 15:56 | PCM.POSTANE2 ---
Anesthesia Postop Eval I Sum Postop Eval Completion status Anesthesia document: Postop Eval 1 completed: Yes Anesthesia Postop Eval I Summary Anesthesia Postop Eval I Summary: Anesthesia Postop Eval I: Assessment Summary Airway patent Yes 01/02/25 14:58 [email or web address] Spontaneous unlabored Yes 01/02/25 14:58 [email or web address] respirations Mental status Awake,Calm 01/02/25 14:58 [email or web address] nausea No 01/02/25 14:58 [email or web address] Vomiting No 01/02/25 14:58 [email or web address] Anesthesia Postop Eval I: Fluid Summary Crystalloid volume administer 1,700 01/02/25 14:58 [email or web address] (ml) Colloids volume administered ( ml) Blood Product volume administered (ml) Total IV fluid infused 1,700 01/02/25 14:58 [email or web address] Anesthesia Postop Eval I: Summary Notes Anesthesia Complication No 01/02/25 14:58 [email or web address] Anesthesia Complication Comment: Post-operative progress note Anesthesia: Postop Eval II Evaluation Mental status: Awake and Calm Pain Level: 4 nausea: No Vomiting: No Complications Anesthesia Complication: No
[2025-01-02] MEDS: Ensure Surgery 237 ML LIQUID PO (18:34)
--- NOTE | 2025-01-02 18:35 | CON.PCM.HO_ITS ---
Assessment & Plan Assessment/Plan (1) Spinal stenosis of lumbar region with neurogenic claudication: PLAN: Plan Patient is a 74-year-old male who presented to [facility] on 01/02/25 for planned L3-5 laminectomy with partial facetectomy and decompression procedure. Medicine consulted postoperatively for medical management. 1. L3-5 stenosis with neurogenic claudication ? Orthopedic surgery primary. S/p L3-5 laminectomy with partial facetectomy and decompression procedure with Dr. Siddiqui on 01/02. Tolerated procedure well, no intraoperative complications noted. Postoperative pain control, DVT prophylaxis and further management per orthopedics. Follow-up a.m. labs. PT/OT/case management consulted. 2. History of CAD with CABG and stenting, history of peripheral vascular disease, hypertension, hyperlipidemia ? Follows with [place] [facility]. History of CABG in 1998 and last stenting was done in 2017. Mildly hypertensive to the 130s to 140s systolic postoperatively. Not currently on any home antihypertensive medications. Continue home statin. Will defer to orthopedics on timing of restarting home baby aspirin. DVT prophylaxis: Per orthopedics Total clinical time spent by myself addressing the patient's medical issues, reviewing all the data, and collaborating with patient's care team: 36 minutes. HPI Consult Data Date of Consult: 01/02/25 HPI Narrative Reason for Consultation: Postoperative medical management HPI Narrative: JAI MOREJON, is a 74 M who presented to [facility] on 01/02/2025 for planned orthopedic procedure. Medicine consulted postoperatively for medical management. Patient had L3-5 laminectomy with partial facetectomy and decompression done with Dr. Siddiqui today. Tolerated procedure well, no intraoperative complications noted. I saw the patient at bedside this evening, was present. Patient was standing at the side of the bed and moving in place during our encounter. He reported mild to moderate low back pain currently but stated that his left lower extremity burning pain especially felt improved now compared to preoperatively. He denies any other acute concerns currently. [facility] Medical History Leg cramps Obesity (BMI 30.0-34.9) MRSA (methicillin resistant staph aureus) culture positive Deaf Wears hearing aid Wears glasses Cancer High cholesterol DVT (deep venous thrombosis) Injury of head and neck Loss of consciousness Gastric reflux Former smoker History of edema History of echocardiogram History of stress test Cardiology follow-up encounter Pulmonary embolism Gastric artery aneurysm Ileostomy present Rectal cancer Intra abdominal hemorrhage Dilated aortic root 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 Subclavian artery stenosis, left GERD (gastroesophageal reflux disease) Meniere's disease Bilateral carotid artery stenosis Old myocardial infarction Premature ventricular contraction Peripheral vascular disease Presence of stent in coronary artery (~12/22/16) Essential hypertension Atherosclerotic heart disease of [place] coronary artery without angina pectoris Hypoacusis Dyslipidemia HTN (hypertension) CAD (coronary artery disease) Home Medications ?Medication ?Instructions ?Recorded ?Last Taken ?Type coenzyme Q10 50 mg capsule (Co 100 mg PO DAILY vitamin 03/04/18 01/18/24 History Q-10) cholecalciferol (vitamin D3) 50 4,000 unit PO DAILY vi tamin 07/21/19 01/17/24 History mcg (2,000 unit) capsule aspirin 81 mg tablet,delayed 81 mg PO DAILY 05/05/23 1 History release (Adult Low Dose Aspirin) magnesium 250 mg tablet 500 mg PO DAILY 05/05/23 History rosuvastatin 10 mg tablet 10 mg PO QDAY #90 tabs 11/0901/02/25 Rx multivitamin 1 tab PO DAILY 01/04/2406/23 History calcium 600 mg capsule 1,200 mg PO DAILY 12/19/24 U nknown History Allergy/AdvReac Type Severity Reaction Status Date / Time clindamycin Allergy Intermediate Abd Verified 01/02/25 10:33 cramps/diarrhea cat dander (cats) AdvReac PT UNSURE Verified 01/02/25 10:33 OF REACTION codeine AdvReac Upset Verified 01/02/25 10:33 Stomach Family History Father CAD (coronary artery disease) Myocardial infarction, Onset Age: 45 Mother Carotid artery stenosis Surgical History History of fusion of cervical spine (01/18/24) History of coronary artery stent placement Presence of coronary angioplasty implant and graft (~12/22/16) History of tonsillectomy History of transurethral resection of prostate (~09/2016) S/P CABG (coronary artery bypass graft) (~09/16/98) S/P PTCA (percutaneous transluminal coronary angioplasty) (~12/22/16) Social History Smoking Status: Former smoker how long ago did patient quit smokin alcohol intake: current details: occasional ROS Constitutional Constitutional: Denies chills, fatigue, fever(s) or weakness Cardiovascular Cardiovascular: Denies chest pain Respiratory/Chest Respiratory/Chest: Denies shortness of breath at rest Gastrointestinal Gastrointestinal: Denies abdominal pain Musculoskeletal Musculoskeletal: Reports back pain; Denies arthralgias or myalgias Neurologic Neurologic: Denies dizziness, focal weakness, headache(s), numbness or tingling Physical Exam Const alert, oriented x3 and no apparent distress Constitutional Narrative: Pleasant elderly male, class I obesity, standing at the edge of the bed and moving in place during our conversation, answering questions appropriately, in no acute distress. General Appearance: cooperative and comfortable HEENT normocephalic, head/scalp atraumatic, hearing grossly normal bilaterally, nasal mucous membranes and turbinates normal and moist oral mucous membranes Eyes PERRL, EOMs intact bilaterally and conjunctivae normal Neck full ROM Chest inspection of chest normal Resp normal respiratory effort, normal air movement, no use of accessory muscles and clear to auscultation bilaterally Cardio regular rate, regular rhythm, no murmurs and peripheral pulses 2+ throughout GI normal to inspection, nondistended, normoactive bowel sounds, soft to palpation, non-tender and non-distended Back/Spine normal ROM Back/Spine Narrative: Surgical dressing in place. Mild tenderness to palpation at surgical site. Extremity normal to inspection, full ROM and no pedal edema Skin no rashes or lesions noted Neuro moves all extremities and no focal motor deficits Psych mental status grossly normal Lab / Micro Data 12/20/24 12:17 12/20/24 12:17 Labs: Laboratory Results - last 24 hr 01/02/25 10:33: POC Glucose 69 L Charges/Coding Visit Charges Inpatient E&M: 59241 Subs Hosp L2
[2025-01-02] MEDS: HYDROcodone Bitartrate/Apap 5/325 Tablet PO (20:48)
[2025-01-02] MEDS: Cefazolin 2 GM in 0.9% Normal Saline (100mL Bag) 100 ML IV (20:49)
[2025-01-02] MEDS: 0.9% Normal Saline (250mL Bag) 250 ML 15 ML IV (20:49)
[2025-01-03 00:53] VITALS: BP 138/97; PULSE 95; RESP 18; TEMP 36.6; O2SAT 95
[2025-01-03 04:11] LABS: Hematocrit 37.2 % (40-54); Hemoglobin 12.3 g/dL (13.0-16.5); Immature Granulocytes Count 0.060 X10^3/uL (0.0-0.0); Mean Corp Hgb Conc 33.1 g/dL (32-36); Mean Corpuscular Volume 94.7 fL (80-94); Mean Platelet Vol. 10.6 fl (6.2-12.0); NRBC Flagged by Analyzer 0 % (0-5); Platelet Count 203 K/mm3 (150-450); RBC Distribution Width CV 14.2 % (11.6-14.6); RBC Distribution Width SD 49.3 fl (35.1-43.9); Red Blood Count 3.93 M/mm3 (4.6-6.2); White Blood Count 12.9 K/mm3 (4.4-11.0)
[2025-01-03 04:40] LABS: Anion Gap 12 (5-15); BUN 14 mg/dL (4-19); BUN/Creat Ratio 12.6 RATIO (10-20); Calcium,Total 8.4 mg/dL (7.6-11.0); Carbon Dioxide 21.5 mmol/L (21.0-32.0); Chloride 104 mmol/L (98-108); Estimated Creatinine Clearance 59.08 ml/min (50-250); Glucose 170 mg/dL (70-99); Potassium 4.1 mmol/L (3.3-5.1)
[2025-01-03 05:21] VITALS: BP 122/78; PULSE 92; RESP 18; TEMP 36.6; O2SAT 96
[2025-01-03] MEDS: Cefazolin 2 GM in 0.9% Normal Saline (100mL Bag) 100 ML IV (05:29)
[2025-01-03] MEDS: Senna/Docusate Sodium 1 Tablet 2 TABLET PO (09:01)
[2025-01-03] MEDS: Ensure Surgery 237 ML LIQUID PO (09:01)
[2025-01-03 09:05] VITALS: BP 128/69; PULSE 90; RESP 16; TEMP 36.8; O2SAT 97
--- NOTE | 2025-01-03 10:48 | PCM.PN.HOSP ---
Subjective Subjective Patient resting comfortably in bed Objective Data Objective Data Vital Signs: Vital Signs Temp Pulse Resp BP Pulse Ox O2 Del Method O2 Flow Rate 98.2 F 90 16 128/69 H 97 Room Air 4 01/03/25 09:05 01/03/25 09:05 01/03/25 09:05 01/03/25 09:05 01/03/25 09:05 01/03/25 09:05 01/02/25 15:45 Oxygen Flow Rate (L/min) 4 Oxygen Delivery Method Room Air Weight: 88 kg Body Mass Index (BMI) 31.3 Intake & Output: Intake and Output for Last 24 Hours 01/01/25 01/02/25 01/03/25 23:59 23:59 23:59 Intake Total 1212 / 1212 1292 / 1292 Output Total Balance 1182 / 1182 1292 / 1292 Lab / Micro Data 01/03/25 03:36 01/03/25 03:36 Labs: Laboratory Results - last 24 hr 01/02/25 10:33: POC Glucose 69 L 01/03/25 03:36: WBC 12.9 H, RBC 3.93 L, Hgb 12.3 L, Hct 37.2 L, MCV 94.7 H, MCH 31.3, MCHC 33.1, RDW Std Deviation 49.3 H, RDW Coeff of [place] 14.2, Plt Count 203, MPV 10.6, Immature Gran % (Auto) 0.500, Neut % (Auto) 85.1 H, Lymph % (Auto) 6.8 L, [place] % (Auto) 7.4, Eos % (Auto) 0.0, Baso % (Auto) 0.2, Absolute Neuts (auto) 11.0 H, Absolute Lymphs (auto) 0.87, Nucleated RBC % 0, Sodium 138, Potassium 4.1, Chloride 104, Carbon Dioxide 21.5, Anion Gap 12, BUN 14, Creatinine 1.14, Estim Creat Clear Calc 59.08, Est GFR (MDRD) Non-Af 67, BUN/Creatinine Ratio 12.6, Glucose 170 H, Calcium 8.4 Micro: Microbiology 12/20/24 12:17 Swab (Method) Nasal Screen MRSA/MSSA - Final Physical Exam Narrative General: Resting comfortably HEENT: Atraumatic, normocephalic Eyes: Eyes closed, no acute distress Neck: Supple Respiratory: normal respiratory effort Assessment & Plan Assessment/Plan (1) Spinal stenosis of lumbar region with neurogenic claudication: PLAN: Plan Patient is a 74-year-old male who presented to [facility] on 01/02/25 for planned L3-5 laminectomy with partial facetectomy and decompression procedure. Medicine consulted postoperatively for medical management. 1. L3-5 stenosis with neurogenic claudication ? Orthopedic surgery primary. S/p L3-5 laminectomy with partial facetectomy and decompression procedure with Dr. Siddiqui on 01/02. Tolerated procedure well, no intraoperative complications noted. Postoperative pain control, DVT prophylaxis and further management per orthopedics. Follow-up a.m. labs. PT/OT/case management consulted. -01/03: Management per primary, timing of aspirin resumption at the discretion of primary 2. History of CAD with CABG and stenting, history of peripheral vascular disease, hypertension, hyperlipidemia ? Follows with [place] [facility]ology. History of CABG in 1999 and last stenting was done in 2017. Mildly hypertensive to the 130s to 140s systolic postoperatively. Not currently on any home antihypertensive medications. Continue home statin. Will defer to orthopedics on timing of restarting home baby aspirin. -01/03: Continue other home medications.vitals reviewed, blood pressure this a.m. 128/69 with a heart rate of 90. Not on any home antihypertensives DVT prophylaxis: Timing and agent at discretion of primary Charges/Coding Visit Charges Inpatient E&M: 41504 [facility] Hosp L1
--- NOTE | 2025-01-03 12:07 | CASEMGMT ---
DERRICK CM into pt room, pt sitting up in chair in no distress. Pt is dressed ready for dc with at bedside. Pt states he has been ambulating halls. He states he does not use AD nor need any. No therapy recommended. Pt awaiting for dc.
--- NOTE | 2025-01-03 13:13 | DCINST_ITS ---
Discharge Instructions DC O2, CPAP, BIPAP needs Home O2 Discharge instructions: No Follow Up Care Test Results: Test results from this visit will be discussed in further detail at your follow- up appointment, if applicable. Discharge Plan Admission Admit Date/Time: 01/02/25 14:50 Attending Provider: Howard Siddiqui Primary Care Provider: Meme Keith Consulting Providers: Cherelle Christian Instructions Patient Instructions: Laminectomy Dc Additional Instructions / Restrictions: Keep Tegaderm and gauze clean and dry. If Tegaderm is intact, okay to shower. After 5 days remove Tegaderm and gauze and cover with a Band-Aid. Replace Band- Aid daily thereafter. No bending lifting or twisting. Follow-up in clinic in 2 weeks. Discharge Orders/Prescriptions Prescriptions: New sennosides-docusate sodium [Stimulant Laxative Plus] 8.6-50 mg Tablet 2 tab PO BID PRN (Reason: constipation) Qty: 14 0RF tramadol 50 mg tablet 50 mg PO Q6H PRN (Reason: pain) Qty: 12 0RF Continued magnesium 250 mg tablet 500 mg PO DAILY coenzyme Q10 [Co Q-10] 50 mg capsule 100 mg PO DAILY Patient Comments: SUPPLIMENT cholecalciferol (vitamin D3) 50 mcg (2,000 unit) capsule 4,000 unit PO DAILY multivitamin Tablet 1 tab PO DAILY calcium 600 mg capsule 1,200 mg PO DAILY rosuvastatin 10 mg tablet 10 mg PO QDAY Qty: 90 3RF Held aspirin [Adult Low Dose Aspirin] 81 mg tablet,delayed release (DR/EC) 81 mg PO DAILY Hold Instructions: Resume on 01/04/25. Referrals / Follow Up: Meme Keith MD [Primary Care Provider, Internal Medicine] Disposition Disposition (needs filled in before D/C Order can be placed): Home, Self Care
--- NOTE | 2025-01-03 13:20 | PN.ORTHO_ITS ---
Subjective Subjective Patient is postop day 1 L3-5 laminectomy. The patient is doing relatively well with his pain well-controlled. The patient has been up and walking with minimal pain. He is not using any ambulatory devices. PT/OT has cleared him for home discharge. Patient reports that he has had his dressing changed several times over the night due to drainage. Seen with Dr. Siddiqui. Objective Data Objective Data Vital Signs: Vital Signs Temp Pulse Resp BP Pulse Ox O2 Del Method O2 Flow Rate 98.2 F 90 16 128/69 H 97 Room Air 4 01/03/25 09:05 01/03/25 09:05 01/03/25 09:05 01/03/25 09:05 01/03/25 09:05 01/03/25 09:05 01/02/25 15:45 Oxygen Flow Rate (L/min) 4 Oxygen Delivery Method Room Air Weight: 194 lb 0.108 oz Body Mass Index (BMI) 31.3 Intake & Output: Intake and Output for Last 24 Hours 01/01/25 01/02/25 01/03/25 23:59 23:59 23:59 Intake Total 1212 / 1212 1292 / 1292 Output Total Balance 1182 / 1182 1292 / 1292 Lab / Micro Data 01/03/25 03:36 01/03/25 03:36 Labs: Laboratory Results - last 24 hr 01/03/25 03:36: WBC 12.9 H, RBC 3.93 L, Hgb 12.3 L, Hct 37.2 L, MCV 94.7 H, MCH 31.3, MCHC 33.1, RDW Std Deviation 49.3 H, RDW Coeff of [place] 14.2, Plt Count 203, MPV 10.6, Immature Gran % (Auto) 0.500, Neut % (Auto) 85.1 H, Lymph % (Auto) 6.8 L, [place] % (Auto) 7.4, Eos % (Auto) 0.0, Baso % (Auto) 0.2, Absolute Neuts (auto) 11.0 H, Absolute Lymphs (auto) 0.87, Nucleated RBC % 0, Sodium 138, Potassium 4.1, Chloride 104, Carbon Dioxide 21.5, Anion Gap 12, BUN 14, Creatinine 1.14, Estim Creat Clear Calc 59.08, Est GFR (MDRD) Non-Af 67, BUN/Creatinine Ratio 12.6, Glucose 170 H, Calcium 8.4 Micro: Microbiology 12/20/24 12:17 Swab (Method) Nasal Screen MRSA/MSSA - Final Radiography Diagnostic Testing: Radiology Impression Lumbar Spine X-Ray 01/02/25 11:00 IMPRESSION: Fluoroscopic guidance was used intraoperatively. Please refer to the operative note for further details. Reading Location: [facility] Physical Exam Narrative Neurological examination of the lower extremity showed 5X5 power. Normal sensation across all dermatomes. Physical examination of the back shows mild saturation of blood on the gauze, patient reports that he has had the dressing changed multiple times. Const alert, oriented x3 and no apparent distress Assessment & Plan Assessment/Plan (1) Status post laminectomy: PLAN: Plan Postop day 1 L3-5 laminectomy. PT/OT cleared. Plan for home discharge today. The patient says that he does not require any medications to go home. Discussed that he should be given at least a short dose of a narcotic to help with any breakthrough pain. Patient says that the [place] that he is on here is making his stomach upset, he wishes for a lesser medication such as tramadol. Home-going meds from a RN to include tramadol and senna. OARRS reviewed. The patient says that he will take at home Tylenol and ibuprofen he does not need any prescriptions for those. The patient also mentions that he has leftover muscle relaxers from his cervical surgery that he can take as needed. Reviewed restrictions of no bending, lifting, twisting. He will follow-up in the clinic in 2 weeks. Sooner if needed for any continued drainage from the incision. Patient is in agreement to the plan.
--- NOTE | 2025-01-03 14:04 | PHA.DC.MR.R ---
Pharmacy [place] Med Reconciliation Pharmacy Service has performed discharge medication reconciliation for this patient. The patient's discharge medication list was reviewed for discrepancies and discrepancies were resolved. Medications at Discharge Home Medications coenzyme Q10 50 mg capsule (Co Q-10) 100 mg PO DAILY vitamin 03/04/18 cholecalciferol (vitamin D3) 50 mcg (2,000 unit) capsule 4,000 unit PO DAILY vitamin 07/21/19 aspirin 81 mg tablet,delayed release (Adult Low Dose Aspirin) 81 mg PO DAILY 05/05/23 Held on 01/03/25. Instructions: Resume on 01/04/25. magnesium 250 mg tablet 500 mg PO DAILY 05/05/23 rosuvastatin 10 mg tablet 10 mg PO QDAY #90 tabs 11/10/23 multivitamin 1 tab PO DAILY 01/04/24 calcium 600 mg capsule 1,200 mg PO DAILY 12/19/24 sennosides 8.6 mg-docusate sodium 50 mg tablet (Stimulant Laxative Plus) 2 tab PO BID PRN constipation #14 tabs 01/03/25 tramadol 50 mg tablet 50 mg PO Q6H PRN pain #12 tabs 01/03/25
== END 2025-01-03 13:42 | disposition home or self-care (01) ==
LOC: SDC 17:25 → MS3 17:25
PROVIDERS: Student in an Organized Health Care Education/Training Program; Admitting Provider Orthopaedic Surgery Orthopaedic Surgery of the Spine; PCP Internal Medicine; Referring Provider Orthopaedic Surgery Orthopaedic Surgery of the Spine; Visit Provider Orthopaedic Surgery Orthopaedic Surgery of the Spine
PROC: (CPT 63030; principal; 2025-01-02 11:30)
DX: M48.062 Spinal stenosis, lumbar region with neurogenic claudication (principal); E78.00 Pure hypercholesterolemia, unspecified; I25.10 Atherosclerotic heart disease of native coronary artery without angina pectoris; I10 Essential (primary) hypertension; Z68.31 Body mass index [BMI] 31.0-31.9, adult; Z86.711 Personal history of pulmonary embolism; M54.14 Radiculopathy, thoracic region; R26.2 Difficulty in walking, not elsewhere classified; Z87.891 Personal history of nicotine dependence; Z86.718 Personal history of other venous thrombosis and embolism; Z79.82 Long term (current) use of aspirin; E66.811 Obesity, class 1; M54.16 Radiculopathy, lumbar region; Z79.02 Long term (current) use of antithrombotics/antiplatelets; Z79.899 Other long term (current) drug therapy; K21.9 Gastro-esophageal reflux disease without esophagitis; I73.9 Peripheral vascular disease, unspecified
CPT/HCPCS: 63047; 63048 ×2; 00630; 36415; 72100; 76000; 80048; 82962; 83036; 83735; 85025; 86850; 86900; 86901; 87081; 94668; 96365; 96366; 99221; G0378; J2405; J3475

== ENCOUNTER 2025-01-07 07:41 | Inpatient (IN) | payer MEDICARE, OTHER, SELFPAY ==
[2025-01-07] VITALS (17 sets, daily range): BP systolic 118–164; BP diastolic 59–91; PULSE 79–98; RESP 16–18; TEMP 36.3–37.5; O2SAT 93–100; BMI 32.9; BMI 32.1
--- OUTSIDE RECORDS SUMMARY | 2025-01-07 08:07 | XMS RPT_ITS | CCD ---
Author Organization [facility] Team Providers Care Shampoo Person Name Role Phone None, No PCP Unavailable Unavailable Unavailable Unavailable Pcp, No Primary Care Provider Unavailabl e Caty Bowens MD Unavailable Wild VARGAS MD, Marisela Unavailable Libby MEZA, Amelia Unavailable Unavailable Caty Bowens MD Unavailable Wild VARGAS MD, Zelalemung Unavailable Libby MEZA, Amelia Unavailable Unavailable Helen Roa Unavailable Care Physician, No Primary Primary Care Provider Unavailable Care Physician, No Primary Referring Provider Un available La Nena CAMACHO, JANICE Sevilla Attending Provider Dr. Katy Faust Primary Care Provider Dr. Helen Roa Attending Provider Caty Bowens MD Unavailable [phone] Wild VARGAS MD, Zelalemung Unavailable Libby RN, Amelia Unavailable Unavailable Helen Roa Unavailable Rosemary VARGAS, I Dutch Unavailable Rosemary VARGAS, I Dutch Unavailable Leandro Cruz RN Unavailable Bhavna Zhang Attending Provider Unavailable Rosemary VARGAS, Ramiro Dutch Unavailable Rosemary VARGAS, I Dutch Unavailable Leandro Cruz RN Unavailable Farhana VARGAS, Gurjit Unavailable Leena PT, Estefany Unavailable Katy Faust MD Primary Care Provider Dr. Toro Diehl Attending Provider [facility] ELECTRICAL MECHANICAL TECHNICIAN, ELECTRICAL MECHANICAL TECHNICIAN-C Carlos Linda Attending Provider Anthony RN, Leandro Unavailable Libby RN, Amelia Unavailable Unavailable Leena PT, Estefany Unavailable JUSTIN WILLIAM Attending Unavailable JUSTIN WILLIAM Admitting Unavailable KATY FAUST Primary Care Unavailable Unavailable Primary Care Provider Unavailsawyer Rome MD, Marisela Unavailable Crispin VARGAS, Helen Zaidi Unavailable Dr. Katy Faust Primary Care Provider Dr. Katy Faust Referring Provider Ronnie ELECTRICAL MECHANICAL TECHNICIAN, ELECTRICAL MECHANICAL TECHNICIAN-C Carlos Linda Attending Provider Dr. Raghu Reynolds Attending Provider Dr. Raghu Reynolds Referring Provider Katy Faust MD Primary Care Provider Katy Faust Primary Care Provider SABRINA MUÑIZ Attending Unavailable KATY FAUST Primary Care Unavailable Sabrina Muñiz Unavailable Farhana VARGAS, Max Unavailable GISELA GENAO Referring Unavailab le Da Silva FLOW SPECIALIST.FUEL AGENT, Srinivasan Unavailable Elena FLOW SPECIALIST.SECURITY SYSTEM INSTALLER, Norm Unavailable GISELA GENAO Referring Unavailab le Elena FLOW SPECIALIST.SECURITY SYSTEM INSTALLER, Norm Unavailable Da Silva FLOW SPECIALIST.FUEL AGENT, Srinivasan Unavailable Dr. Katy Faust MD Primary Care Provider [phone] Dr. Katy Faust MD Referring Provider Artur VARGAS, Dr. Lawrence Attending Provider Anirudh VARGAS, Dr. Voss Attending Provider Estelle SPENCER, Dr. Man Attending Provider [phone] Estelle SPENCER, Dr. Man Emergency Provider Amato PA, Naty Attending Provider [phone] Amato PA, Naty Referring Provider Gail VARGAS, Dr. Krishnamurthy Attending Provider Inna VARGAS, Dr. Katy Kwan Primary Care Provider Inna VARGAS, Dr. Katy Kwan Referring Provider Artur VARGAS, Dr. Lawrence Attending Provider Inna VARGAS, Dr. Katy Kwan Primary Care Provider [phone] Anirudh VARGAS, Dr. Voss Attending Provider [phone] Artur VARGAS, Dr. Lawrence Referring Provider Farhana VARGAS, Gurjit Wilkerson Unavailable Elder Faust MD, Dr. Katy Kwan Primary Care Physician Inna VARGAS, Dr. Katy Kwan Referring Provider Lima CAMACHO, Naty Attending Physician Artur VARGAS, Dr. Lawrence Attending Physician Anirudh VARGAS, Dr. Voss Attending Physician Lima PA, Naty Referring Provider [phone] Gail VARGAS, Dr. Krishnamurthy Attending Physician Ronnie ELECTRICAL MECHANICAL TECHNICIAN-Carlos Shell Attending Physician NORM PARKER Attending Unavailable TALAMPAS, KATY D Primary Care Unavailable TALAMPAS, KATY D Attending Unavailable TALAMPAS, KATY D Primary Care Unavailable TALAMPAS, KATY D Primary Care Unavailable NORM PARKER Attending Unavailable TALAMPAS, KATY D Primary Care Unavailable SRINIVASAN DA SILVA Attending Unavailable SELF Referring Unavailable NORM PARKER Attending Unavailable TALAMPAS, KATY D Primary Care Unavailable TALAMPAS, KATY D Primary Care Unavailable TALAMPAS, KATY D Primary Care Unavailable Amato, Naty Attending Unavailable Amato, Naty Referring Unavailable Talampas, Katy D Primary Care Unavailable Donovan Mccabe Attending Unavailable Talampas, Katy D Primary Care Unavailable Siddiqui, Howard Attending Unavailable Talampas, Katy D Referring Unavailable Talampas, Katy D Primary Care Unavailable Siddiqui, Howard Referring Unavailable Siddiqui, Howard Attending Unavailable Talampas, Katy D Primary Care Unavailable Siddiqui, Howard Attending Unavailable Siddiqui, Howard Referring Unavailable Talampas, Katy D Primary Care Unavailable Siddiqui, Howard Admitting Unavailable Talampas, Katy D Primary Care Unavailable Ahsan Younger Attending Unavailable Ahsan Younger Consulting Unavailable Siddiqui, Howard Referring Unavailable Siddiqui, Howard Consulting Unavailable Siddiqui, Howard Referring Unavailable Siddiqui, Howard Admitting Unavailable Zaira De Jesus Attending Unavailable Talampas, Katy D Primary Care Unavailable Raghu Chew Consulting Unavailable Siddiqui, Howard Consulting Unavailable Siddiqui, Howard Attending Unavailable Siddiqui, Howard Admitting Unavailable Talampas, Katy D Primary Care Unavailable Cherelle Christian Consulting Unavailable Siddiqui, Howard Referring Unavailable Siddiqui, Howard Attending Unavailable Siddiqui, Howard Referring Unavailable Siddiqui, Howard Consulting Unavailable Talampas, Katy D Primary Care Unavailable Zaira De Jesus Attending Unavailable Cherelle Christian Consulting Unavailable Siddiqui, Howard Attending Unavailable Siddiqui, Howard Consulting Unavailable Talampas, Katy D Primary Care Unavailable Siddiqui, Howard Referring Unavailable Carlos Trujillo NP Attending Unavailable Talampas, Katy D Referring Unavailable Talampas, Katy D Primary Care Unavailable Siddiqui, Howard Referring Unavailable Talampas, Katy D Primary Care Unavailable Winter Foy Attending Unavailable Talampas, Katy D Primary Care Unavailable Raghu Reynolds Attending Unavailable Amato, Naty Referring Unavailable Carlos Trujillo NP Attending Unavailable Talampas, Katy D Referring Unavailable Talampas, Katy D Primary Care Unavailable Raghu Reynolds Attending Unavailable Amato, Naty Referring Unavailable Talampas, Katy D Primary Care Unavailable Raghu Reynolds Attending Unavailable Amato, Naty Referring Unavailable Talampas, Katy D Primary Care Unavailable Cherelle Christian Attending Unavailable NealZaira Attending Unavailable Talampas, Katy D Referring Unavailable Talampas, Katy D Primary Care Unavailable Bipin Oleary Attending Unavailable Talampas, Katy D Primary Care Unavailable Siddiqui, Howard Attending Unavailable Talampas, Katy D Referring Unavailable Talampas, Katy D Primary Care Unavailable Amato, Naty Attending Unavailable Talampas, Katy D Primary Care Unavailable Talampas, Katy D Referring Unavailable Siddiqui, Howard Attending Unavailable Siddiqui, Howard Admitting Unavailable Siddiqui, Howard Referring Unavailable Talampas, Katy D Primary Care Unavailable Raghu Chew Consulting Unavailable Marylou Rome Consulting Unavailable Marylou Rome Attending Unavailable Talampas, Katy D Primary Care Unavailable Amato, Naty Referring Unavailable Amato, Naty Attending Unavailable Siddiqui, Howard Attending Unavailable Talampas, Katy D Referring Unavailable Talampas, Katy D Primary Care Unavailable Talampas, Katy D Primary Care Unavailable Anirudh, [place] Attending Unavailable Siddiqui, Howard Attending Unavailable Talampas, Akty D Referring Unavailable Talampas, Katy D Primary Care Unavailable Siddiqui, Howard Attending Unavailable Talampas, Katy D Referring Unavailable Talampas, Katy D Primary Care Unavailable Siddiqui, Howard Attending Unavailable Talampas, Katy D Referring Unavailable Talampas, Katy D Primary Care Unavailable Anirudh, [place] Attending Unavailable Talampas, Katy D Primary Care Unavailable Siddiqui, Howard Attending Unavailable Talampas, Katy D Referring Unavailable Talampas, Katy D Primary Care Unavailable Anirudh, [place] Attending Unavailable Talampas, Katy D Primary Care Unavailable Amato, Naty Attending Unavailable Amato, Naty Referring Unavailable Talampas, Katy D Primary Care Unavailable Allergies Allergy Classification Reported Allergen(s) Allergy Type Date of Onset Reaction(s) Facility Lincosamides (antibiotic) (3 sources) Clindamycin Drug Allergy 2 GI Upset [facility] Opioid Agonists (4 sources) Codeine; Translations: [codeine] Drug Allergy 8 GI Upset [facility] (20 sources) Codeine; Translations: [codeine] Drug Allergy 8 GI Upset, Other [facility] Work Phone: Comment on above: Sharp pain in stomac h (20 sources) Clindamycin; Translations: [CLINDAMYCIN] Drug Allergy 2 GI Upset, Other [facility] (20 sources) cat dander; Translations: [CAT DANDER] Propensity to adverse reactions 2 Other: See Comments [facility] (1 source) ALLERGIES NOT ON FILE; Translations: [ALLERGIES NOT ON FILE] Propensity to adverse reactions (disorder) [facility] (1 source) Clindamycin Drug Allergy 5 [facility] (1 source) Codeine Drug Allergy 5 [facility] Medications Current Medications Medication Drug Class(es) Dates Sig (Normalized) Sig (Original) aspirin 81 mg delayed release oral tablet (20 sources) Platelet Aggregation Inhibitor, Nonsteroidal Anti-inflammatory Drug Start: 05-04-2023 Aspirin (Adult Low Dose Aspirin) 81 mg tablet,delayed release (DR/EC) Active 81 mg PO DAILY May 05, 2023 1:00am On Hold: Resume on 01/21/24. Complies with drug therapy Start: 02-27-2022 End: 08-27-2022 take 1 tablet by mouth once daily Aspirin (Aspir-81) 81 mg Tablet,Delayed Release (Dr/Ec) Discontinued 81 mg PO DAILY February 27, 2022 1:00am August 27, 2022 3:00pm Start: 02-27-2022 Aspirin (Aspir -81) 81 mg Tablet,Delayed Release (Dr/Ec) Active MG February 27, 2022 12:00am Start: 12-21-2016 End: 07-21-2019 take 1 tablet by mouth once daily Aspirin 81 MG tablet Discontinued 81 mg PO DAILY@0800 December 21, 2016 12:00am July 21, 2019 8:46am heart health Start: 01-28-2005 End: 06-04-2021 ASPIRIN 81 MG TAB Take one(1 ) tablet daily. 0 01/28/2005 06/04/2021 Discontinued (Course of therapy completed) Comment on above: Take one(1) tablet d aily. Take 1 tablet by once daily. Calcium Carbonate / vitamin D3 (6 sources) take 1 tablet by mouth once daily calcium carbonate/vitamin D3 (CALCIUM 600 WITH VITAMIN D3 ORAL) Take 1 tablet by mouth once daily. Active Calcium Lactate 100 mg calcium tab (8 sources) take 1 tablet by mouth once daily Calcium Lactate 100 mg calcium tab Take 1 tablet by mouth once daily. Active cephalexin 500 mg oral capsule (15 sources) Cephalosporin Antibacterial Start: 4 End: 4 take 1 capsule by mouth four times daily cephALEXin (KEFLEX) 500 mg capsule Take 1 capsule by mouth four times daily for 5 days. 20 capsule 0 05/31/2023 06/05/2023 Active Start: 04-07-2019 End: 07-21-2019 take 1 capsule by mouth every six hours Cephalexin 500 MG capsule Discontinued 500 mg PO EVERY 6 HOURS 28 0 April 07, 2019 1:00am July 21, 2019 8:46am Comment on above: Take 1 capsule by [facility] four times daily for 5 days. cholecalciferol 0.05 mg oral capsule (20 sources) Vitamin D Start: 01-30-2022 take 1 capsule by mouth two times weekly Cholecalciferol, Vitamin D3, 50 mcg (2,000 unit) cap Take 1 capsule by mouth two times a week. 01/30/2022 Active Start: 10-14-2016 End: 07-21-2019 take 1 capsule by mouth once daily Cholecalciferol (Vitamin D3) 50 mcg (2,000 unit) capsule Active 4000 U PO DAILY July 21, 2019 8:44am vitamin Complies with drug therapy Start: 10-14-2016 End: 07-21-2019 take 2 capsules by mouth once daily Cholecalciferol (Vitamin D3) 2,000 UNIT capsule Discontinued 4000 U PO DAILY October 14, 2016 12:00am July 21, 2019 8:46am vitamin Start: 06-20-2007 End: 07-18-2021 cholecalciferol(VITAMIN D-3 400 UNIT CAP) Take one(1) tablet daily. 0 06/20/2007 07/18/2021 Discontinued Comment on above: Take one(1) tablet d aily. Take 1 capsule by [facility] two times a week. ciprofloxacin 250 mg oral tablet (2 sources) Quinolone Antimicrobial Start: 07-11-19 End: 07-18-19 take 1 tablet by mouth twice daily ciprofloxacin HCl (CIPRO) 250 mg tablet Take 1 tablet by mouth twice daily for 7 days. 14 tablet 0 07/10/2021 07/17/2021 Active Comment on above: Take 1 tablet by [facility] twice daily for 7 days. enteric contrast (will be provided with radiology test) (4 sources) Start: 08-03-19 End: 08-04-19 enteric contrast (will be provided with radiology test) Indications: History of rectal cancer MRI RECTUM WO/W. Administer, As Directed One Time Only, via Oral, Rectal, both Oral and Rectal, Enteric Tube, Stoma or Indwelling Catheter, Enteric Contrast as designated per enteric contrast guidelines 1 Each 0 08/03/2023 08/04/2023 Active Start: 09-25-2021 End: 09-26-2021 enteric contrast (will be pr ovided with radiology test) MRI RECTUM WO/W. Administer, As Directed One Time Only, via Oral, Rectal, both Oral and Rectal, Enteric Tube, Stoma or Indwelling Catheter, Enteric Contrast as designated per enteric contrast guidelines 1 Each 0 09/25/2021 09/26/2021 Active Start: 07-18-2021 End: 07-19-2021 enteric contrast (will be pr ovided with radiology test) Indications: Rectal malignant neoplasm (HCC) , Anal squamous cell carcinoma (HCC) MRI RECTUM WO/W. Administer, As Directed One Time Only, via Oral, Rectal, both Oral and Rectal, Enteric Tube, Stoma or Indwelling Catheter, Enteric Contrast as designated per enteric contrast guidelines 1 Each 0 07/18/2021 07/19/2021 Active Comment on above: MRI RECTUM WO/W. Adm inister, As Directed One Time Only, via Oral, Rectal, both Oral and Rectal, Enteric Tube, Stoma or Indwelling Catheter, Enteric Contrast as designated per enteric contrast guidelines iv contrast (will be provided with radiology test) (4 sources) Start: 08-03-2023 End: 08-04-2023 iv contrast (will be provided with radiology test) Indications: History of rectal cancer MRI Rectum Inject, intravenously, once for 1 dose. No IV access, insert saline lock prior to the beginning of sedation, infusion, injection of imaging exam. Discontinue saline lock post exam. If Pt has a central line or IVAD, may access for administration according to line specific nursing protocol. Once exam is complete flush line and de-access according to line specific nursing protocol in the MR contrast administration guidelines link. 1 Each 0 08/03/2023 08/04/2023 Active Start: 09-25-2021 End: 09-26-2021 iv contrast (will be provide d with radiology test) MRI Rectum Inject, intravenously, once for 1 dose. No IV access, insert saline lock prior to the beginning of sedation, infusion, injection of imaging exam. Discontinue saline lock post exam. If Pt has a central line or IVAD, may access for administration according to line specific nursing protocol. Once exam is complete flush line and de-access according to line specific nursing protocol in the MR contrast administration guidelines link. 1 Each 0 09/25/2021 09/26/2021 Active Start: 07-18-2021 End: 07-19-2021 iv contrast (will be provide d with radiology test) Indications: Rectal malignant neoplasm (HCC) , Anal squamous cell carcinoma (HCC) MRI Rectum Inject, intravenously, once for 1 dose. No IV access, insert saline lock prior to the beginning of sedation, infusion, injection of imaging exam. Discontinue saline lock post exam. If Pt has a central line or IVAD, may access for administration according to line specific nursing protocol. Once exam is complete flush line and de-access according to line specific nursing protocol in the MR contrast administration guidelines link. 1 Each 0 07/18/2021 07/19/2021 Active Comment on above: MRI Rectum Inject, i ntravenously, once for 1 dose. No IV access, insert saline lock prior to the beginning of sedation, infusion, injection of imaging exam. Discontinue saline lock post exam. If Pt has a central line or IVAD, may access for administration according to line specific nursing protocol. Once exam is complete flush line and de-access according to line specific nursing protocol in the MR contrast administration guidelines link. Lactobacillus Combination No.9 (Adult 50 Plus Probiotic) 4 billion cell capsule (14 sources) Start: 020 take 4 capsules by mouth once daily Lactobacillus Combination No.9 (Adult 50 Plus Probiotic) 4 billion cell capsule Active 4000 MMU CELLS PO DAILY July 21, 2019 8:45am administer with a meal Start: 07-21-2019 End: 02-26-2022 take 4 capsules by mouth once daily Lactobacillus Combination No.9 (Adult 50 Plus Probiotic) 4 billion cell capsule Discontinued 4000 NMA PO DAILY July 21, 2019 12:00am February 26, 2022 9:23am administer with a meal Start: 07-21-2019 End: 02-26-2022 take 4 capsules by mouth once daily Lactobacillus Combination No.9 (Adult 50 Plus Probiotic) 4 billion cell capsule Discontinued 4000 MMU CELLS PO DAILY July 21, 2019 12:00am February 26, 2022 9:23am administer with a meal Start: 07-21-2019 End: 02-26-2022 take 4 capsules by mouth once daily Lactobacillus Combination No.9 (Adult 50 Plus Probiotic) 4 billion cell capsule Discontinued 4000 MMU CELLS PO DAILY July 20, 2019 11:00pm February 26, 2022 8:23am administer with a meal Start: 07-21-2019 take 4 capsules by m out once daily Lactobacillus Combination No.9 (Adult 50 Plus Probiotic) 4 billion cell capsule Active 4000 MMU CELLS PO DAILY July 20, 2019 11:00pm administer with a meal Magnesium (20 sources) Start: 05-05-2023 take 2 tablets by mo uth once daily Magnesium 250 mg tablet Active 500 mg PO DAILY May 05, 2023 1:00am Complies with drug therapy Start: 05-05-2023 take 2 tablets by mo uth once daily Magnesium 250 mg tablet Active 500 mg PO DAILY May 05, 2023 1:00am Start: 05-05-2023 take 250 mg by mouth once jesus y Magnesium Active 250 MG PO DAILY May 05, 2023 1:00am End: 01-04-2024 take 1 tablet by mouth once daily Magnesium 250 mg tab Take 250 mg by mouth once daily. 01/04/2024 Discontinued take 1 tablet by octaviano th once daily Magnesium 250 mg tab Take 250 mg by mouth once daily. Active take 1 tablet by octaviano th once daily Magnesium 250 mg tab Take 250 mg by mouth once daily. 0 Active Comment on above: Take 250 mg by mouth once daily. magnesium carbonate 500 mg oral tablet (8 sources) take 500 mg by mouth once daily MAGNESIUM CARBONATE ORAL Take 500 mg by mouth once daily. Active take 1 tablet by mouth once jesus y MAGNESIUM CARBONATE ORAL Take 1 tablet by mouth once daily. 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) Increase monthly supply of ostomy pouches to 12 per month(8 per month not adequate) 12 Each 10/22/2023 Active Multivitamin preparation (9 sources) Start: 10-14-2016 Multivitamin A ctive 1 EACH PO DAILY October 14, 2016 9:20am Start: 10-14-2016 End: 02-26-2022 Multivitamin Discontinued 1 EACH PO DAILY October 14, 2016 12:00am February 26, 2022 9:24am Start: 10-14-2016 End: 02-26-2022 Multivitamin Discontinued 1 EACH PO DAILY October 13, 2016 11:00pm February 26, 2022 8:24am Start: 10-14-2016 Multivitamin A ctive 1 EACH PO DAILY October 13, 2016 11:00pm multivitamin tablet (20 sources) take 1 tablet by octaviano th once daily multivitamin tablet Take 1 tablet by mouth once daily. Active take 1 tablet by mouth once jesus y multivitamin tablet Take 1 tablet by mouth once daily. 0 Active Comment on above: Take 1 tablet by octaviano th once daily. Multivitamin tablet (5 sources) Start: 01-04-2024 Multivitamin tablet Active 1 {tbl} PO DAILY January 04, 2024 1:00am Complies with drug therapy Start: 01-04-2024 Multivitamin t ablet Active 1 {tbl} PO DAILY January 04, 2024 1:00am nitroglycerin 0.4 mg sublingual tablet (3 sources) Nitrate Vasodilator Start: 12-21-2016 Nitroglycerin Active 0.4 MG SL NEEDED December 20, 2016 11:00pm rosuvastatin calcium 10 mg oral tablet (20 sources) HMG-CoA Reductase Inhibitor Start: 11-10-2023 take 1 tablet by mouth once daily Rosuvastatin 10 mg tablet Active 10 mg PO daily 3 November 10, 2023 12:00am Complies with drug therapy tiZANidine 4 mg oral tablet (2 sources) Central alpha-2 Adrenergic Agonist Start: 08-15-2024 take 1 tablet by mouth every eight hours as needed tiZANidine (ZANAFLEX) 4 mg tablet Indications: Tendonitis , Muscle tightness Take 1 tablet by mouth every 8 hours as needed. 30 tablet 08/15/2024 Active ubidecarenone 100 mg oral capsule (20 sources) Start: 01-30-2022 coenzyme Q10 (COENZYME Q-10) 100 mg cap capsule Take 100 mg by mouth once daily. 01/30/2022 Active Start: 03-04-2018 Coenzyme Q10 ( Co Q-10) 50 mg capsule Active 100 mg PO DAILY March 04, 2018 4:36pm vitamin Complies with drug therapy Start: 01-18-2014 End: 03-04-2018 Coenzyme Q10 (Co Q-10) 50 MG capsule Discontinued 50 mg PO DAILY January 18, 2014 1:00am March 04, 2018 4:37pm vitamin Comment on above: Take 100 mg by mouth once daily. ubidecarenone/vitamin E mixed (COQ10 SG 100 ORAL) (19 sources) End: 06-18-2021 ubidecarenone/vitamin E mixed (COQ10 SG 100 ORAL) Take by mouth once daily. PATIENT STATES ON MOST DAYS 0 06/18/2021 Discontinued ubidecarenone/vi tamin E mixed (COQ10 SG 100 ORAL) Take by mouth once daily. PATIENT STATES ON MOST DAYS 0 Active Comment on above: Take by mouth once d aily. PATIENT STATES ON MOST DAYS Vitamin B Complex (9 sources) Start: 12-21-2016 Vitamin B Comp kay Active 1 EACH PO DAILY December 21, 2016 1:39pm Start: 12-21-2016 Vitamin B Comp kay Active 1 EACH PO DAILY December 20, 2016 11:00pm Start: 06-20-2007 End: 06-04-2021 vitamin b complex(B COMPLEX CAP) Take one(1) capsule daily. 0 06/20/2007 06/04/2021 Discontinued (Course of therapy completed) Start: 06-20-2007 vitamin b comp kay(B COMPLEX CAP) Take one(1) capsule daily. 0 06/20/2007 Active Comment on above: Take one(1) capsule daily. vitamin b12 1 mg oral tablet (2 sources) Vitamin B12 Start: 12-21-2016 take 1000 ug by mouth once daily Cyanocobalamin (Vitamin B-12) Active 1000 MCG PO DAILY December 21, 2016 1:39pm Completed/Discontinued Medications Medication Drug Class(es) Dates Sig (Normalized) Sig (Original) acetaminophen 500 mg oral tablet (20 sources) Start: 02-26-2022 End: 05-05-2023 take 2 tablets by mouth every six hours as needed for pain Acetaminophen 500 mg tablet Discontinued 1000 mg PO EVERY 6 HOURS as needed for Pain February 26, 2022 1:00am May 05, 2023 3:53pm Start: 02-26-2022 End: 05-05-2023 take 1000 mg by mouth every six hours Acetaminophen Discontinued 1000 MG PO EVERY 6 HOURS February 26, 2022 1:00am May 05, 2023 3:53pm Start: 01-28-2022 take 500-1000 mg by mouth every six hours as needed acetaminophen (TYLENOL) 500 mg tablet Take 1-2 tablets by mouth every 6 hours as needed for pain. 0 01/28/2022 Active Comment on above: Take 1-2 tablets by mouth every 6 hours as needed for pain. acetaminophen 325 mg / HYDROcodone bitartrate 5 mg oral tablet (11 sources) Opioid Agonist Start: 04-25-2024 End: 07-06-2024 Hydrocodone-Acetaminophe n 5-325 mg tablet Discontinued 1 {tbl} PO EVERY 6 HOURS NEEDED as needed for Pain 12 3 0 April 25, 2024 July 06, 2024 8:48am Abdominal pain Unspecified abdominal pain Start: 01-19-2024 End: 03-02-2024 Hydrocodone-Acetaminophen 5- 325 mg Tablet Discontinued 1 {tbl} PO EVERY 6 HOURS 28 7 0 January 19, 2024 March 02, 2024 9:13am Status post cervical spinal arthrodesis Arthrodesis status Start: 11-30-2023 End: 12-07-2023 take 1-2 tablets by mouth every eight hours as needed for pain HYDROcodone-acetaminophen (NORCO) 5-325 mg per tablet Indications: Chronic left shoulder pain Take 1-2 tablets by mouth every 8 hours as needed for pain for up to 7 days. 42 tablet 11/30/2023 12/07/2023 Active apixaban 5 mg oral tablet (20 sources) Factor Xa Inhibitor Start: 06-07-2022 take 1 tablet by mouth twice daily apixaban (ELIQUIS) 5 mg tab(s) Take 1 tablet by mouth twice daily. 60 tablet 3 06/07/2022 Active Start: 06-07-2022 take 1 tablet by octaviano th twice daily apixaban (ELIQUIS) 5 mg tab(s) Take 1 tablet by mouth twice daily. 60 tablet 3 06/07/2022 Active Start: 03-24-2022 take 1 tablet by octaviano th twice daily apixaban (ELIQUIS) 5 mg tab(s) Take 1 tablet by mouth twice daily. 60 tablet 3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 arm; Translations: [Pain in left arm] 04-23-2023 Episodic Other connective tissue disease (1 source) Calcific tendinitis of left shoulder; Translations: [Calcific tendinitis of left shoulder] 06-21-2023 Episodic Other connective tissue disease (1 source) Pain in bilateral legs; Translations: [Pain in right leg] 05-31-2024 Episodic Other connective tissue disease (13 sources) History of cervical spine fusion; Translations: [Arthrodesis status] 01-19-2024 Episodic Other connective tissue disease (1 source) Tendinitis; Translations: [Enthesopathy, unspecified] 08-15-2024 Episodic Other connective tissue disease (1 source) Increased muscle tone; Translations: [Other specified disorders of muscle] 08-15-2024 Episodic Other ear and sense organ disorders (2 sources) Sensorineural hearing loss, bilateral; Translations: [Sensorineural hearing loss, bilateral] Chronic Other ear and sense organ disorders (20 sources) Hearing loss; Translations: [Unspecified hearing loss, unspecified ear] Onset: 2 04-30-2021 Chronic Other gastrointestinal disorders (20 sources) Ileostomy present; Translations: [Ileostomy status] Onset: 2 01-28-2022 Chronic Comment on above: 01/27/22 @ [facility] Other gastrointestinal disorders (1 source) Encounter for attention to ileostomy; Translations: [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)] Onset: 5 Chronic Other gastrointestinal disorders (1 source) Ileostomy status; Translations: [Presence of ileostomy (HCC)] Onset: 5 Chronic Other gastrointestinal disorders (12 sources) Hemorrhage into peritoneal cavity; Translations: [Hemoperitoneum] 2022 Episodic Other gastrointestinal disorders (12 sources) Pneumoperitoneum; Translations: [Other specified disorders of peritoneum] 2022 Episodic Other hematologic conditions (1 source) History of anemia; Translations: [Personal history of diseases of the blood and blood-forming organs and certain disorders involving the immune mechanism] Episodic Other infections; including parasitic (1 source) History of hepatitis B; Translations: [Personal history of other infectious and parasitic diseases] Episodic Other injuries and conditions due to external causes (6 sources) Closed injury of head; Translations: [Unspecified injury of head, initial encounter] 06-19-2023 Episodic Other liver diseases (2 sources) Non-alcoholic fatty liver; Translations: [Other chronic nonalcoholic liver disease] Chronic Other liver diseases (2 sources) Liver cyst; Translations: [Other specified disorders of liver] Chronic Other lower respiratory disease (1 source) Dyspnea; Translations: [Shortness of breath] Episodic Other lower respiratory disease (10 sources) Dyspnea on exertion; Translations: [Other forms of dyspnea] 03-10-2022 Episodic Other nervous system disorders (1 source) Peripheral nerve entrapment syndrome; Translations: [Mononeuropathy, unspecified] Chronic Other nervous system disorders (5 sources) Left arm peripheral neuropathy; Translations: [Unspecified mononeuropathy of left upper limb] 07-22-2023 Chronic Other non-traumatic joint disorders (1 source) Chronic pain of left upper limb; Translations: [Pain in left shoulder] 11-30-2023 Episodic Other nutritional; endocrine; and metabolic disorders (20 sources) Obese class I; Translations: [Obesity, unspecified] Onset: 2 Resolved: 3 01-28-2022 Chronic Other screening for suspected conditions (not mental disorders or infectious disease) (12 sources) Increased lactic acid level; Translations: [Other specified abnormal findings of blood chemistry] 2022 Episodic Other skin disorders (1 source) Ingrowing great toenail; Translations: [Ingrowing nail] 05-31-2023 Episodic Peripheral and visceral atherosclerosis (20 sources) Peripheral vascular disease; Translations: [Peripheral vascular disease, unspecified] Onset: Chronic Phlebitis; thrombophlebitis and thromboembolism (2 sources) Thromboembolism of vein; 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] 09-30-2022 Chronic Residual codes; unclassified (1 source) Postoperative state; Translations: [Other specified postprocedural states] Episodic Residual codes; unclassified (1 source) Localized edema; Translations: [Localized edema] 10-01-2022 Episodic Residual codes; unclassified (8 sources) Other specified health status; Translations: [Failure of outpatient treatment] 07-25-2022 Episodic Residual codes; unclassified (1 source) Bilateral lower limb edema; Translations: [Localized edema] 05-31-2024 Episodic Residual codes; unclassified (2 sources) Other specified postprocedural states; Translations: [Other specified postprocedural states] Onset: 5 Episodic Spondylosis; intervertebral disc disorders; other back problems (12 sources) Prolapsed cervical intervertebral disc; Translations: [Other cervical disc displacement, unspecified cervical region] Onset: 4 01-04-2024 Chronic Spondylosis; intervertebral disc disorders; other back problems (20 sources) Cervical radiculopathy; Translations: [Radiculopathy, cervical region] Onset: 2 04-30-2021 Episodic Superficial injury; contusion (6 sources) Abrasion of periorbital region of face; Translations: [Abrasion of left eyelid and periocular area, initial encounter] 06-19-2023 Episodic Syncope (10 sources) Near syncope; Translations: [Syncope and collapse] 03-10-2022 Episodic Transient cerebral ischemia (20 sources) Steal syndrome of left subclavian artery; Translations: [Other transient cerebral ischemic attacks and related syndromes] 05-29-2020 Chronic Comment on above: CTA- images reviewed , calcified plaque at left subclavian origin, degree of stenosis difficult to assess due to contrast bolus within adjacent vein causing artifact Unclassified (2 sources) New Patient; Translations: [New Patient] Onset: 4 Unclassified (2 sources) OTHER Onset: 4 Unclassified (7 sources) M48.061 - Spinal stenosis, lumbar region without neurogenic claudication Past or Other Problems Problem Classification Problem Date Documented Da te Episodic/Chronic Abdominal pain (18 sources) Acute abdominal pain; Translations: [Unspecified abdominal pain] Onset: 04-25-2024 2022 Episodic Acute and unspecified renal failure (20 sources) Acute injury of kidney; Translations: [Acute kidney failure, unspecified] Onset: 02-03-2022 Resolved: 07-07-2022 02-03-2022 Episodic Fluid and electrolyte disorders (20 sources) Hypokalemia; Translations: [Hypokalemia] Onset: 02-10-2022 02-10-2022 Episodic Nutritional deficiencies (20 sources) Undernutrition; Translations: [Mild protein-calorie malnutrition] Onset: 02-05-2022 Resolved: 05-22-2022 02-05-2022 Chronic Other aftercare (1 source) Encounter for surgical aftercare following surgery on the circulatory system; Translations: [Encounter for surgical aftercare following surgery on the circulatory system] Onset: 08-03-2024 Episodic Other connective tissue disease (1 source) Enthesopathy, unspecified; Translations: [Tendonitis] Onset: 08-15-2024 Episodic Other connective tissue disease (1 source) Other specified disorders of muscle; Translations: [Muscle tightness] Onset: 08-15-2024 Episodic Other connective tissue disease (2 sources) Arthrodesis status; Translations: [Arthrodesis status] Onset: 01-24-2024 Episodic Other lower respiratory disease (20 sources) Respiratory insufficiency; Translations: [Other abnormalities of breathing] Onset: 02-01-2022 Resolved: 02-10-2022 02-02-2022 Episodic Other nervous system disorders (20 sources) Postoperative pain ; Translations: [Other acute postprocedural pain] Onset: 01-28-2022 Resolved: 02-24-2022 01-28-2022 Episodic Other nutritional; endocrine; and metabolic disorders (20 sources) Obese class II; Translations: [Obesity, unspecified] Onset: 02-05-2022 Resolved: 04-06-2022 2022 Chronic Other nutritional; endocrine; and metabolic disorders (20 sources) Hypophosphatemia; Translations: [Other disorders of phosphorus metabolism] Onset: 2022 Resolved: 02-24-2022 2022 Chronic Phlebitis; thrombophlebitis and thromboembolism (20 sources) History of thromboembolism of vein; Translations: [Personal history of other venous thrombosis and embolism] Onset: 07-21-2022 Episodic Pulmonary heart disease (20 sources) Pulmonary embolism; Translations: [Other pulmonary embolism without acute cor pulmonale] Onset: 02-13-2022 02-24-2022 Episodic Residual codes; unclassified (20 sources) History of cardiac catheterization; Translations: [Personal history of surgery to heart and great vessels, presenting hazards to health] Onset: 04-30-2021 04-30-2021 Episodic Residual codes; unclassified (20 sources) Inadequate pain control; Translations: [Pain, unspecified] Onset: 02-16-2022 Resolved: 02-18-2022 02-18-2022 Episodic Results Test Name Value Interpretation Reference Range Facility Basic Metabolic Profile (BMP )on 01-03-2025 BUN/CRE 12.6 RATIO Normal 10-20 [facility] Comment on above: Performed By: #### L 500.2500, L100.0100 #### [facility] [address] [place], [address] Calcium [Mass/Vol] 8.4 mg/dL Normal 7.6-11.0 [facility] Comment on above: Performed By: #### L 500.2500, L100.0100 #### [facility] [address] [place], [address] Chloride [Moles/Vol] 104 mmol/L Normal 98-108 [facility] Comment on above: Performed By: #### L 500.2500, L100.0100 #### [facility] [address] [place], [address] CO2 [Moles/Vol] 21.5 mmol/L Normal 21.0-32.0 [facility] Comment on above: Performed By: #### L 500.2500, L100.0100 #### [facility] [address] [place], [address] Creatinine [Mass/Vol] 1.14 mg/dL Normal 0.70-1.20 [facility] Comment on above: Performed By: #### L 500.2500, L100.0100 #### [facility] [address] [place], [address] ECRCL 59.08 ml/min Normal 50-250 [facility] Comment on above: Performed By: #### L 500.2500, L100.0100 #### [facility] [address] [place], [address] GAP 12 Normal 5-15 [facility] Comment on above: Performed By: #### L 500.2500, L100.0100 #### [facility] [address] [place], [address] GFR/1.73 sq M.predicted among non-blacks MDRD (S/P/Bld) [Vol rate/Area] 67 mL/min/{1.73_m2} Normal >60 [facility] Comment on above: Result Comment: mL/m in/1.73m2 CKD-EPI Creatinine Equation (2020) Performed By: #### L 500.2500, L100.0100 #### [facility] [address] [place], [address] Glucose [Mass/Vol] 170 mg/dL High 70-99 [facility] Comment on above: Performed By: #### L 500.2500, L100.0100 #### [facility] [address] [place], [address] Potassium [Moles/Vol] 4.1 mmol/L Normal 3.3-5.1 [facility] Comment on above: Performed By: #### L 500.2500, L100.0100 #### [facility] [address] [place], [address] Sodium [Moles/Vol] 138 mmol/L Normal 133-145 [facility] Comment on above: Performed By: #### L 500.2500, L100.0100 #### [facility] [address] [place], [address] Urea nitrogen [Mass/Vol] 14 mg/dL Normal 4-19 [facility] Comment on above: Performed By: #### L 500.2500, L100.0100 #### [facility] [address] [place], [address] CBC W/Diff, Automatedon 11-0 -2024 Absolute Lymph 0.87 X10 3/uL Normal 0.83-4.51 [facility] Comment on above: Performed By: #### L 500.2500, L100.0100 #### [facility] [address] [place], [address] Absolute Neut 11.0 X10 3/uL High 2.0-7.7 [facility] Comment on above: Performed By: #### L 500.2500, L100.0100 #### [facility] [address] [place], [address] Basophils/100 WBC (Bld) 0.2 % Normal 0-1 [facility] Comment on above: Performed By: #### L 500.2500, L100.0100 #### [facility] [address] [place], [address] Eosinophils/100 WBC (Bld) 0.0 % Normal 0-5 [facility] Comment on above: Performed By: #### L 500.2500, L100.0100 #### [facility] [address] [place], [address] Erythrocyte distribution width (RBC) [Ratio] 14.2 % Normal 11.6-14.6 [facility] Comment on above: Performed By: #### L 500.2500, L100.0100 #### [facility] [address] [place], [address] Hematocrit (Bld) [Volume fraction] 37.2 % Low 40-54 [facility] Comment on above: Performed By: #### L 500.2500, L100.0100 #### [facility] [address] [place], [address] Hemoglobin (Bld) [Mass/Vol] 12.3 g/dL Low 13.0-16.5 [facility] Comment on above: Performed By: #### L 500.2500, L100.0100 #### [facility] [address] [place], [address] IG% 0.500 Normal 0.0-0.9 [facility] Comment on above: Result Comment: IG% - Immature Granulocytes (promyelocytes, myelocytes and metamyelocytes) > 1% indicates that a LEFT SHIFT is Present. Performed By: #### L 500.2500, L100.0100 #### [facility] [address] [place], [address] Lymphocytes/100 WBC (Bld) 6.8 % Low 19-41 [facility] Comment on above: Performed By: #### L 500.2500, L100.0100 #### [facility] [address] [place], [address] MCH (RBC) [Entitic mass] 31.3 pg Normal 27.0-32.0 [facility] Comment on above: Performed By: #### L 500.2500, L100.0100 #### [facility] [address] [place], [address] MCHC (RBC) [Mass/Vol] 33.1 g/dL Normal 32-36 [facility] Comment on above: Performed By: #### L 500.2500, L100.0100 #### [facility] [address] [place], [address] MCV (RBC) [Entitic vol] 94.7 fL High 80-94 [facility] Comment on above: Performed By: #### L 500.2500, L100.0100 #### [facility] [address] [place], [address] Monocytes/100 WBC (Bld) 7.4 % Normal 0-10 [facility] Comment on above: Performed By: #### L 500.2500, L100.0100 #### [facility] [address] [place], [address] Neutrophils/100 WBC (Bld) 85.1 % High 47-70 [facility] Comment on above: Performed By: #### L 500.2500, L100.0100 #### [facility] [address] [place], [address] Nucleated RBC (Bld) [#/Vol] 0 10*3/uL Normal 0-5 [facility] Comment on above: Performed By: #### L 500.2500, L100.0100 #### [facility] [address] [place], [address] Platelet mean volume (Bld) [Entitic vol] 10.6 fL Normal 6.2-12.0 [facility] Comment on above: Performed By: #### L 500.2500, L100.0100 #### [facility] [address] [place], [address] Platelets (Bld) [#/Vol] 203 10*3/uL Normal 150-450 [facility] Comment on above: Performed By: #### L 500.2500, L100.0100 #### [facility] [address] [place], [address] RBC (Bld) [#/Vol] 3.93 10*6/uL Low 4.6-6.2 [facility] Comment on above: Performed By: #### L 500.2500, L100.0100 #### [facility] [address] [place], [address] RDW SD 49.3 fl High 35.1-43.9 [facility] Comment on above: Performed By: #### L 500.2500, L100.0100 #### [facility] [address] [place], [address] WBC (Bld) [#/Vol] 12.9 10*3/uL High 4.4-11.0 [facility] Comment on above: Performed By: #### L 500.2500, L100.0100 #### [facility] [address] [place], [address] Discharge Instructionon 11-0 Discharge Instruction [facility] Medical Records Department [address] [place] [address] Instructions for Home/Discharge Instructions 01/03/25 1313 MR#: [id number] Acct: [id number] Name: JAI LUNA Rep #: [id number] : 1950 74 From: Zaira CAMACHO PCP: Dr. Katy Faust MD Status:ADM RUDDY Discharge Instructions DC O2, CPAP, BIPAP needs Home O2 Discharge instructions: No Follow Up Care Test Results: Test results from this visit will be discussed in further detail at your follow-up appointment, if applicable. Discharge Plan Admission Admit Date/Time: 01/02/25 14:50 Attending Provider: Howard Siddiqui Primary Care Provider: Katy Faust Consulting Providers: Cherelle Christian Instructions Patient Instructions: Laminectomy Dc Additional Instructions / Restrictions: Keep Tegaderm and gauze clean and dry. If Tegaderm is intact, okay to shower. After 5 days remove Tegaderm and gauze and cover with a Band-Aid. Replace Band-Aid daily thereafter. No bending lifting or twisting. Follow-up in clinic in 2 weeks. Discharge Orders/Prescriptions Prescriptions: New sennosides-docusate sodium [Stimulant Laxative Plus] 8.6-50 mg Tablet 2 tab PO BID PRN (Reason: constipation) Qty: 14 0RF tramadol 50 mg tablet 50 mg PO Q6H PRN (Reason: pain) Qty: 12 0RF Continued magnesium 250 mg tablet 500 mg PO DAILY coenzyme Q10 [Co Q-10] 50 mg capsule 100 mg PO DAILY Patient Comments: SUPPLIMENT cholecalciferol (vitamin D3) 50 mcg (2,000 unit) capsule 4,000 unit PO DAILY multivitamin Tablet 1 tab PO DAILY calcium 600 mg capsule 1,200 mg PO DAILY rosuvastatin 10 mg tablet 10 mg PO QDAY Qty: 90 3RF Held aspirin [Adult Low Dose Aspirin] 81 mg tablet,delayed release (DR/EC) 81 mg PO DAILY Hold Instructions: Resume on 01/04/25. Referrals / Follow Up: Katy Faust MD [Primary Care Provider, Internal Medicine] Disposition Disposition (needs filled in before D/C Order can be placed): Home, Self Care 01/03/25 1314 Zaira CAMACHO CC: Dr. Katy Faust MD; Dr. Cherelle Christian MD Signed Normal [facility] Bedside Glucoseon 01-02-2025 FINGERSTICK GLU 69 mg/dL Low 74-106 [facility] Comment on above: Result Comment: ZENA FAUST OF PATIENT CARE PER NURSING PROTOCOL Performed By: #### L 501.080 #### [facility] [address] [place], [address] Consultation - Hospitaliston 01-02-2025 Consultation - Hospitalist [facility] Medical Records Department [address] [place] [address] Consultation - Hospitalist 01/02/25 1835 MR#: [id number] Acct: [id number] Name: JAI LUNA Rep #: [id number] : 1950 74 From: Ahsan Younger DO PCP: Dr. Katy Faust MD Status:ADM RUDDY [id number] Assessment Plan Assessment/Plan (1) Spinal stenosis of lumbar region with neurogenic claudication: PLAN: Plan Patient is a 74-year-old male who presented to [facility] on 01/02/25 for planned L3- 5 laminectomy with partial facetectomy and decompression procedure. Medicine consulted postoperatively for medical management. 1. L3-5 stenosis with neurogenic claudication ??? Orthopedic surgery primary. S/p L3-5 laminectomy with partial facetectomy and decompression procedure with Dr. Siddiqui on 01/02. Tolerated procedure well, no intraoperative complications noted. Postoperative pain control, DVT prophylaxis and further management per orthopedics. Follow-up a.m. labs. PT/OT/case management consulted. 2. History of CAD with CABG and stenting, history of peripheral vascular disease, hypertension, hyperlipidemia ??? Follows with [place] [facility]. History of CABG in 1999 and last stenting was done in 2017. Mildly hypertensive to the 130s to 140s systolic postoperatively. Not currently on any home antihypertensive medications. Continue home statin. Will defer to orthopedics on timing of restarting home baby aspirin. DVT prophylaxis: Per orthopedics Total clinical time spent by myself addressing the patient's medical issues, reviewing all the data, and collaborating with patient's care team: 36 minutes. HPI Consult Data Date of Consult: 01/02/25 HPI Narrative Reason for Consultation: Postoperative medical management HPI Narrative: JAI LUNA, is a 74 M who presented to [facility] on 01/02/2025 for planned orthopedic procedure. Medicine consulted postoperatively for medical management. Patient had L3-5 laminectomy with partial facetectomy and decompression done with Dr. Siddiqui today. Tolerated procedure well, no intraoperative complications noted. I saw the patient at bedside this evening, was present. Patient was standing at the side of the bed and moving in place during our encounter. He reported mild to moderate low back pain currently but stated that his left lower extremity burning pain especially felt improved now compared to preoperatively. He denies any other acute concerns currently. [facility] Medical History Leg cramps Obesity (BMI 30.0-34.9) MRSA (methicillin resistant staph aureus) culture positive Deaf Wears hearing aid Wears glasses Cancer High cholesterol DVT (deep venous thrombosis) Injury of head and neck Loss of consciousness Gastric reflux Former smoker History of edema History of echocardiogram History of stress test Cardiology follow-up encounter Pulmonary embolism Gastric artery aneurysm Ileostomy present Rectal cancer Intra abdominal hemorrhage Dilated aortic root 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 Subclavian artery stenosis, left GERD (gastroesophageal reflux disease) Meniere's disease Bilateral carotid artery stenosis Old myocardial infarction Premature ventricular contraction Peripheral vascular disease Presence of stent in coronary artery ( 12/22/16) Essential hypertension 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 Hypoacusis Dyslipidemia HTN (hypertension) CAD (coronary artery disease) Home Medications ???Medication ???Instructions ???Recorded ???Last Taken ???Type coenzyme Q10 50 mg capsule (Co 100 mg PO DAILY vitamin 03/04/18 1 03/19/23 History Q-10) cholecalciferol (vitamin D3) 50 4,000 unit PO DAILY vitamin 01/17/24 History mcg (2,000 unit) capsule aspirin 81 mg tablet,delayed 81 mg PO DAILY 05/05/23 12/26/24 H istory release (Adult Low Dose Aspirin) magnesium 250 mg tablet 500 mg PO DAILY 05/05/23 01/14/24 History rosuvastatin 10 mg tablet 10 mg PO QDAY #90 tabs 11/10/23 Rx multivitamin 1 tab PO DAILY 01/04/24 01/02/25 H istory calcium 600 mg capsule 1,200 mg PO DAILY 12/19/24 Unknown History Allergy/AdvReac Type Severity Reaction Status Date / Time clindamycin Allergy Intermediate Abd Verified 01/02/25 10:33 cramps/diarrhea cat dander (cats) AdvReac PT UNSURE Verified 01/02/25 10:33 OF REACTION codeine AdvReac Upset Verified 01/02/25 10:33 Stomach Family History Father CAD (coronary artery disease) Myocardial infarction, Onset Age: 45 Mother Carotid artery stenosis Surgical History ... Normal [facility] Lumbar Spine 2 or 3 Viewson 01-02-2025 Lumbar Spine 2 or 3 Views [facility] [address] [place] [address] [id number] Lumbar Spine 2 or 3 Views MR#: [id number] Acct: [id number] Name: JAI LUNA Rep #: [id number] : 1950 M 74 From: Armand Miller MD PCP: Dr. Katy Faust MD Status: ADM RUDDY Study: Lumbar Spine 2 or 3 Views Date of Exam: Exam# [id number] Ordering Dr: Howard Siddiqui MD EXAM: XR Lumbosacral Spine, 2 or 3 Views CLINICAL INDICATION: ERAS, LUMBAR LAMINECTOMY L3-4 AND L4-5 TECHNIQUE: Frontal and lateral views of the lumbar spine and sacrum. COMPARISON: No relevant prior studies available. FINDINGS: 1 fluoroscopic image. Total fluoroscopy time 34 seconds. Total radiation dose 1.8 mGy. RAD/Lumbar Spine 2 or 3 Views IMPRESSION: Fluoroscopic guidance was used intraoperatively. Please refer to the operative note for further details. Reading Location: [facility]- CC: Dr. Howard Siddiqui MD; Dr. Katy Faust MD [employer] Helper: Signed [facility] MR/POSTOP.ANEon 01-02-2025 MR/POSTOP.[facility] Medical Records Department [address] [place] [address] Anesthesia Postop Eval I 01/02/25 1457 MR#: [id number] Acct: [id number] Name: JAI LUNA Rep #: [id number] : 1950 74 From: Michael Kat CRNA PCP: Dr. Katy Faust MD Status:REG SDC Y Race: C Location: [place] [address] Anesthesia: Postop Eval I Current Vital Signs Temperature: 96.9 F Pulse Rate: 77 Blood Pressure: 141/68 Respiratory Rate: 20 Pulse Ox: 94 Oxygen Delivery Method: Nasal Cannula Oxygen Flow Rate (L/min): 2 Assessment Airway patent: Yes Spontaneous unlabored respirations: Yes Mental status: Awake and Calm nausea: No Vomiting: No Anesthesia Complication: No Fluid Hydration Crystalloid volume administer (ml): 1,700 Total IV fluid infused: 1,700 Progress Note Anesthesia document: Postop Eval 1 completed: Yes 01/02/25 145 Date Michael Kat CRNA Cosigner Signature: Date CC: Signed [facility] MR/LVWRJGLS3ga 01-02-2025 MR/POSTOPAN2 [facility] Medical Records Department [address] [place] [address] Anesthesia Postop Eval II 01/02/25 1556 MR#: [id number] Acct: [id number] Name: JAI LUNA Rep #: [id number] : 1950 74 From: Nehal Villagran DATASTAGE DEVELOPER PCP: Dr. Katy Faust MD Status:REG SDC Y Race: C Location: [place] [address] Anesthesia Postop Eval I Sum Postop Eval Completion status Anesthesia document: Postop Eval 1 completed: Yes Anesthesia Postop Eval I Summary Anesthesia Postop Eval I Summary: Anesthesia Postop Eval I: Assessment Summary Airway patent Yes 01/02/25 14:58 DATASTAGE [email or web address] Spontaneous unlabored Yes 01/02/25 14:58 DATASTAGE [email or web address].PKEL respirations Mental status Awake,Calm 01/02/25 14:58 DATASTAGE [email or web address].PKEL nausea No 01/02/25 14:58 DATASTAGE DEVELOPER.PKEL Vomiting No 01/02/25 14:58 DATASTAGE DEVELOPER.PKEL Anesthesia Postop Eval I: Fluid Summary Crystalloid volume administer 1,700 01/02/25 14:58 DATASTAGE DEVELOPER.PKEL (ml) Colloids volume administered ( ml) Blood Product volume administered (ml) Total IV fluid infused 1,700 01/02/25 14:58 DATASTAGE [email or web address].PKEL Anesthesia Postop Eval I: Summary Notes Anesthesia Complication No 01/02/25 14:58 DATASTAGE [email or web address] Anesthesia Complication Comment: Post-operative progress note Anesthesia: Postop Eval II Evaluation Mental status: Awake and Calm Pain Level: 4 nausea: No Vomiting: No Complications Anesthesia Complication: No 01/02/25 1556 Date Nehal Villagran 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 Katy Faust MD Status:[facility] Location: [place] [address]- Procedures Musculoskeletal 20xxx-29xxx: Other Procedure See Report Operative Report (Standard) Operative Information Date of Procedure: 01/02/25 Pre-Operative Diagnosis: L3-5 stenosis with neurogenic claudication Post-Operative Diagnosis: Same Surgery/Procedure Performed: L3-5 laminectomy, partial facetectomy, foraminotomy, decompression precipitator supervisor: Yes Radial Drill Press Operator: Zaira De Jesus Tasks completed by hardware sales assistant: Closing, Removing tissue, Hemostasis: Electrocautery and Retracting Type of Anesthesia: General RN Documented Start/Stop Times: Operation Date: 01/02/25 12:00 Case Time Into Pre-Op 01/02/25 10:11 Out of Pre-Op 01/02/25 12:03 Anesthesia Start 01/02/25 12:08 Into Room 01/02/25 12:08 Procedure Start 01/02/25 12:42 Procedure Start Time: 12:42 Procedure Stop Time: 14:45 Select all DRAINS/GRAFTS/IMPLANT S that apply: None Estimated Blood Loss: 30 cc Specimen collected: No Description of surgery: Preoperative diagnosis: L3-5 central lateral recess stenosis bilateral, neurogenic claudication Postoperative diagnosis: Same Name of procedure: L3-5 open laminectomy, partial facetectomy, foraminotomy Decompression of L5 nerve root CPT 85686 Decompression of L4 nerve root CPT 66785 Decompression of L3 nerve root CPT 89012 Attending Surgeon: Dr. Howard Siddiqui Estimated blood loss: 30 mL Anesthesia: General Indications: Patient is a 74-year-old gentleman who presented with low back pain and left worse than right lower extremity radiation, with difficulty walking distances and neurogenic claudication. MRI revealed L3-5 central, lateral recess and foraminal stenosis worse on the left. All options of treatment were discussed which included continued nonoperative treatment measures like rest physical therapy, injections. After prolonged nonsurgical treatment, patient requested surgical intervention for laminectomy. All risks and benefits associated with the procedure were explained to the patient. The risks include but are not limited to infection, bleeding, injury to nerves and vessels, persistent paresthesia, incidental dural tear, recurrent disc herniation, spinal instability and need for fusion or other procedures in future, persistent pain, persistent weakness and numbness, etc. Procedure: The patient was identified in the preoperative holding suite using Unique patient identifiers. Skin was marked, consent was reviewed, and all questions were answered. The patient was then brought back to the operative room. A surgical timeout was performed to make sure correct procedure was being done on the correct patient and all operative room staff were on the same page. General endotracheal anesthesia was then given to the patient. The patient was then turned prone onto a Jose table over a Kwesi frame. The back was prepped and draped in usual fashion. Preoperative antibiotic was given. A final timeout was then again done just before starting the procedure. An 18-gauge spinal needle was inserted and level was identified. An incision was then carried out in the midline at presumed L3-5 levels. Bovie was utilized to dissect through the subcutaneous tissue up to the fascia. The fascia was bovied at the spinous process. Subperiosteal dissection was carried out along the both side of the spinous process and the lamina. This dissection was stopped at the level of the medial capsule of the facet joint. Lateral edge of the pars was also identified. A [place] was then placed under the inferior edge of the lamina and a C-arm lateral view was repeated. The level was confirmed to be the L3-4 interspace. Exposure of L3-5 interspaces were then completed. A Raygoza retractor of appropriate depth was then placed to provide retraction throughout the remainder of the surgery. A bone cutter was used to remove the spinous process. iodine bone scalpel was then utilized to first create a score along the area of the laminectomy. Care was taken to preserve at least 1 cm of bone from the lateral border of the pars. The bone scalpel was then advanced to perform the cuts along this score. The lamina was then removed with the help of rongeurs and curettes. The flavum was utilized to protect the dura and superior articular process was carefully from the flavum. Partial medial facetectomy was performed to provide adequate lateral recess decompression. All of the flavum was eventually removed. L3 laminectomy was extended superior enough to allow exposure and decompression of the L3 foramina on both sides. (more content not included)... Normal [facility] CNOVon 12-26-2024 CNOV Office Visit (INTMWS ) JAI LUNA ([id number]) 1950 M Date Time Provider Department 12/26/24 7:00 AM SRINIVASAN DA SILVAMWS During your visit today, we recorded the following information about you: Temperature Pulse Respiration Blood pressure 98.5 degrees 58/minute 16/minute 139/71 Weight 88.4 kg Srinivasan Da Silva APRN.[facility] 12/26/2024 7:44 AM Signed Subjective Patient ID: Chaka is a 74 year old male who presents for Pre-Op Exam. HPI Jai Luna is a 74-year-old male with CAD s/p CABG, coronary stents, hyperlipidemia and lumbar spinal stenosis, presenting for preoperative evaluation prior to lumbar decompression surgery. Preoperative Evaluation: - Scheduled for back surgery on 06/03 at [facility] by Dr. Siddiqui to address spinal stenosis in the lower spine. - Has seen [facility] for pre-surgery evaluation. He has undergone lab work and EKG with cardiology. - Instructed to stop taking baby aspirin 7 days preoperatively and to stop Plavix now 1 year s/p coronary stent. - Denies chest pain, dyspnea, or need for oxygen. - Denies current cancer, diabetes, lung disease, or kidney disease. - Denies steroid use or infections in the last month. - Denies smoking in the last year; quit smoking in 1999. - Independent in daily activities. - No history of heart failure. Plan is for overnight admission to the hospital. Spinal Stenosis: - Diagnosed with lumbar spinal stenosis affecting nerves to the left leg, causing progressive weakness and difficulty walking distances. - Has been worsening over the years despite increased exercise. - Previous MRI and physical therapy conducted before diagnosis. - History of cervical spine surgery with plate insertion by Dr. Siddiqui, which alleviated severe left shoulder pain but left arm remains weak. Rectal Cancer: - In remission. - Underwent ileostomy; resection failed, resulting in permanent ostomy. ACS NSQIP Surgical Risk Calculator Procedure CPT Code: Lumbar laminectomy 1. Age Group: 65 - 74 years 2. Sex: male 3. Functional Status: Independent 4. Emergency Case: No 5. ASA Class: Mild systemic disease 6. Steroid use for chronic condition: No 7. Ascites within 30 days prior to surgery: No 8. Systemic Sepsis within 48 hours prior to surgery: None 9. Ventilator Dependent: No 10. Disseminated Cancer: No 11. Diabetes: None 12. Hypertension requiring medication: No 13. Congestive Heart Failure in 30 days prior to surgery: No 14. Dyspnea: No 15. Current Smoker within 1 Year: No 16. History of COPD: No 17. Dialysis: No 18. Acute Renal Failure: No 19. BMI Class Calculation: Obese 1 Objective BP 139/71 Pulse (!) 58 Temp 36.9 ?C (98.5 ?F) (Oral) Resp 16 Wt 88.4 kg (194 lb 14.2 oz) SpO2 96% BMI 32.68 kg/m? Physical Exam Vitals and nursing note reviewed. Constitutional: Appearance: Normal appearance. HENT: Head: Normocephalic and atraumatic. Eyes: Conjunctiva/sclera: Conjunctivae normal. Neck: Thyroid: No thyroid mass or thyromegaly. Vascular: Normal carotid pulses. No carotid bruit or JVD. Cardiovascular: Rate and Rhythm: Normal rate and regular rhythm. Pulses: Carotid pulses are 2+ on the right side and 2+ on the left side. Radial pulses are 2+ on the right side and 2+ on the left side. Heart sounds: Normal heart sounds. Pulmonary: Effort: Pulmonary effort is normal. Breath sounds: Normal breath sounds. Abdominal: General: Bowel sounds are normal. Palpations: Abdomen is soft. Musculoskeletal: Right lower leg: No edema. Left lower leg: No edema. Skin: General: Skin is warm and dry. Neurological: General: No focal deficit present. Mental Status: He is alert and oriented to person, place, and time. 1. Preop exam for internal medicine (Z01.818) - Preoperative risk assessment completed for lumbar spine surgery scheduled on the at [facility] with Dr. Siddiqui. - No active infection, steroid use, or other acute medical issues identified that would increase surgical risk. - Reviewed preoperative labs; all necessary labs completed. - Reviewed preoperative instructions from cardiology and surgery, including discontinuation of aspirin and Plavix. He is below average risk for serious or any complication. No need for any additional testing from an internal medicine perspective. CBC and CMP was completed at [facility] on December 20. - Advised to call Dr. Siddiqui's office the day before surgery to confirm surgery time if he does not receive a call with his surgery time. 2. Spinal stenosis of lumbar region with neurogenic claudication (M48.062) - Chronic lumbar spinal stenosis with neurogenic claudication affecting left leg; surgery planned to address this. 3. Coronary artery disease involving seneca coronary artery of seneca heart without angina pectoris (I25.10) 4. S/P CA (more content not included)... Normal [facility] Orthopedic Visit Reporton Orthopedic Visit Report [facility] Orth[facility] [address] [address] OFFICE VISIT Date of Service: 12/22/24 MR#: [id number] Acct: [id number] Name: JAI LUNA Rep #: [id number] : 1950 Provider: Dr. Howard Siddiqui MD Age/Sex: 74/M Location: [email or web address] Status: Signed Intake Vital Signs 10/13/24 08:58 11/29/24 07:49 12/22/24 09:26 Height 5 ft 6 in 5 ft 6 in 5 ft 6 in Weight: 194 lb 190 lb BMI 31.3 30.7 Intake Visit Reasons: lumbar spine Chief Complaint: Lumbre spine pre op Accompanied by: Self Is patient in pain?: Yes Pain scale (1-10): 1 Allergies clindamycin Allergy (Intermediate, Verified 12/22/24 09:31) Abd cramps/diarrhea cat dander (cats) Adverse Reaction (Verified 12/22/24 09:31) PT UNSURE OF REACTION codeine Adverse Reaction (Verified 12/22/24 09:31) Upset Stomach Medications ???Medication ???Instructions ???Recorded ???Confirmed ???Type coenzyme Q10 50 mg capsule (Co 100 mg PO DAILY vitamin 03/04/18 1 History Q-10) cholecalciferol (vitamin D3) 50 4,000 unit PO DAILY vitamin 12/22/24 History mcg (2,000 unit) capsule aspirin 81 mg tablet,delayed 81 mg PO DAILY 05/05/23 12/22/24 H istory release (Adult Low Dose Aspirin) magnesium 250 mg tablet 500 mg PO DAILY 05/05/23 12/22/24 History rosuvastatin 10 mg tablet 10 mg PO QDAY #90 tabs 11/10/23 Rx multivitamin 1 tab PO DAILY 01/04/24 12/22/24 H istory calcium 600 mg capsule 1,200 mg PO DAILY 12/19/24 5 History clopidogrel 75 mg tablet 75 mg PO DAILY 12/19/24 12/22/24 H istory Have you fallen in the past year?: No PFSH Medical History Leg cramps Obesity (BMI 30.0-34.9) MRSA (methicillin resistant staph aureus) culture positive Deaf Wears hearing aid Wears glasses Cancer High cholesterol DVT (deep venous thrombosis) Injury of head and neck Loss of consciousness Gastric reflux Former smoker History of edema History of echocardiogram History of stress test Cardiology follow-up encounter Pulmonary embolism Gastric artery aneurysm Ileostomy present Rectal cancer Intra abdominal hemorrhage Dilated aortic root 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 Subclavian artery stenosis, left GERD (gastroesophageal reflux disease) Meniere's disease Bilateral carotid artery stenosis Old myocardial infarction Premature ventricular contraction Peripheral vascular disease Presence of stent in coronary artery ( 12/22/16) Essential hypertension 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 Hypoacusis Dyslipidemia HTN (hypertension) CAD (coronary artery disease) Surgical History History of fusion of cervical spine (01/18/24) History of coronary artery stent placement Presence of coronary angioplasty implant and graft ( 12/22/16) History of tonsillectomy History of transurethral resection of prostate ( 09/2016) S/P CABG (coronary artery bypass graft) ( 09/16/98) S/P PTCA (percutaneous transluminal coronary angioplasty) ( 12/22/16) Family History Father CAD (coronary artery disease) Myocardial infarction, Onset Age: 45 Mother Carotid artery stenosis Social History Smoking Status: Former smoker how long ago did patient quit smokin alcohol intake: current details: occasional HPI lumbar spine Details: This documentation accurately reflects the service provided and the decisions made by me, Dr. Howard Siddiqui MD 12/22/24 0960. Part of today???s visit was documented by Teagan Weems MA, acting as scribe. JAI LUNA is a 74 year old M here today for lumbar spine pre op. Patient states that his pain is a 1 today. He has heard that some patient have to get this surgery done a second time. The patient is a 74-year-old male presenting for pre-operative evaluation and discussion regarding upcoming laminectomy surgery. The patient has a history of neck surgery performed earlier this year, which has resolved previous shoulder pain. He reports that his left arm is no longer painful, indicating successful surgical outcomes. The patient also has a history of an ostomy, which led to an ulcer due to the use of a convex ostomy bag. The ulcer healed completely after switching to a different type of bag as recommended by a stoma nurse at the [facility]. 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 He underwent surgery to remove the clots and was initially treated w (more content not included)... Normal [facility] MRSA/SAID NASAL SCREENon MRSA+SAID SCRN Reason for Exam: preop MRSA MRSA Negative S. AUREUS S. aureus Negative Normal [facility] Comment on above: Performed By: #### M 100.651, L501.5200, L100.0100, L501.9985, BTSPAT, L500.2500 ####[facility] [address] [place], [place], [id number] Basic Metabolic Profile (BMP )on 12-20-2024 BUN/CRE 14.7 RATIO Normal 12-18 [facility] Comment on above: Performed By: #### M 100.651, L501.5200, L100.0100, L501.9985, BTSPAT, L500.2500 ####[facility] [address] [place], [place], [phone] Calcium [Mass/Vol] 8.9 mg/dL Normal 7.6-11.0 [facility] Comment on above: Performed By: #### M 100.651, L501.5200, L100.0100, L501.9985, BTSPAT, L500.2500 ####[facility] [address] [place], [address] Chloride [Moles/Vol] 106 mmol/L Normal 98-108 [facility] Comment on above: Performed By: #### M 100.651, L501.5200, L100.0100, L501.9985, BTSPAT, L500.2500 ####[facility] [address] [place], [address] CO2 [Moles/Vol] 20.5 mmol/L Low 21.0-32.0 [facility] Comment on above: Performed By: #### M 100.651, L501.5200, L100.0100, L501.9985, BTSPAT, L500.2500 ####[facility] [address] [place], [address] Creatinine [Mass/Vol] 1.25 mg/dL High 0.70-1.20 [facility] Comment on above: Performed By: #### M 100.651, L501.5200, L100.0100, L501.9985, BTSPAT, L500.2500 ####[facility] [address] [place], [address] GAP 11 Normal 5-15 [facility] Comment on above: Performed By: #### M 100.651, L501.5200, L100.0100, L501.9985, BTSPAT, L500.2500 ####[facility] [address] [place], [address] GFR/1.73 sq M.predicted among non-blacks MDRD (S/P/Bld) [Vol rate/Area] 60 mL/min/{1.73_m2} Normal >60 [facility] Comment on above: Result Comment: mL/m in/1.73m2 CKD-EPI Creatinine Equation (2020) Performed By: #### M 100.651, L501.5200, L100.0100, L501.9985, BTSPAT, L500.2500 ####[facility] [address] [place], [address] Glucose [Mass/Vol] 100 mg/dL High 70-99 [facility] Comment on above: Performed By: #### M 100.651, L501.5200, L100.0100, L501.9985, BTSPAT, L500.2500 ####[facility] [address] [place], [address] Potassium [Moles/Vol] 4.2 mmol/L Normal 3.3-5.1 [facility] Comment on above: Performed By: #### M 100.651, L501.5200, L100.0100, L501.9985, BTSPAT, L500.2500 ####[facility] [address] [place], [address] Sodium [Moles/Vol] 138 mmol/L Normal 133-145 [facility] Comment on above: Performed By: #### M 100.651, L501.5200, L100.0100, L501.9985, BTSPAT, L500.2500 ####[facility] [address] [place], [address] Urea nitrogen [Mass/Vol] 18 mg/dL Normal 4-19 [facility] Comment on above: Performed By: #### M 100.651, L501.5200, L100.0100, L501.9985, BTSPAT, L500.2500 ####[facility] [address] [place], [address] CBC W/Diff, Automatedon 10-2 Absolute Lymph 1.88 X10 3/uL Normal 0.83-4.51 [facility] Comment on above: Performed By: #### M 100.651, L501.5200, L100.0100, L501.9985, BTSPAT, L500.2500 ####[facility] [address] [place], [address] Absolute Neut 4.4 X10 3/uL Normal 2.0-7.7 [facility] Comment on above: Performed By: #### M 100.651, L501.5200, L100.0100, L501.9985, BTSPAT, L500.2500 ####[facility] [address] [place], [address] Basophils/100 WBC (Bld) 0.9 % Normal 0-1 [facility] Comment on above: Performed By: #### M 100.651, L501.5200, L100.0100, L501.9985, BTSPAT, L500.2500 ####[facility] [address] [place], [address] Eosinophils/100 WBC (Bld) 4.2 % Normal 0-5 [facility] Comment on above: Performed By: #### M 100.651, L501.5200, L100.0100, L501.9985, BTSPAT, L500.2500 ####[facility] [address] [place], [address] Erythrocyte distribution width (RBC) [Ratio] 14.0 % Normal 11.6-14.6 [facility] Comment on above: Performed By: #### M 100.651, L501.5200, L100.0100, L501.9985, BTSPAT, L500.2500 ####[facility] [address] [place], [address] Hematocrit (Bld) [Volume fraction] 42.6 % Normal 40-54 [facility] Comment on above: Performed By: #### M 100.651, L501.5200, L100.0100, L501.9985, BTSPAT, L500.2500 ####[facility] [address] [place], [address] Hemoglobin (Bld) [Mass/Vol] 14.3 g/dL Normal 13.0-16.5 [facility] Comment on above: Performed By: #### M 100.651, L501.5200, L100.0100, L501.9985, BTSPAT, L500.2500 ####[facility] [address] [place], [address] IG% 0.400 Normal 0.0-0.9 [facility] Comment on above: Result Comment: IG% - Immature Granulocytes (promyelocytes, myelocytes and metamyelocytes) > 1% indicates that a LEFT SHIFT is Present. Performed By: #### M 100.651, L501.5200, L100.0100, L501.9985, BTSPAT, L500.2500 ####[facility] [address] [place], [address] Lymphocytes/100 WBC (Bld) 24.8 % Normal 19-41 [facility] Comment on above: Performed By: #### M 100.651, L501.5200, L100.0100, L501.9985, BTSPAT, L500.2500 ####[facility] [address] [place], [address] MCH (RBC) [Entitic mass] 31.2 pg Normal 27.0-32.0 [facility] Comment on above: Performed By: #### M 100.651, L501.5200, L100.0100, L501.9985, BTSPAT, L500.2500 ####[facility] [address] [place], [address] MCHC (RBC) [Mass/Vol] 33.6 g/dL Normal 32-36 [facility] Comment on above: Performed By: #### M 100.651, L501.5200, L100.0100, L501.9985, BTSPAT, L500.2500 ####[facility] [address] [place], [address] MCV (RBC) [Entitic vol] 92.8 fL Normal 80-94 [facility] Comment on above: Performed By: #### M 100.651, L501.5200, L100.0100, L501.9985, BTSPAT, L500.2500 ####[facility] [address] [place], [address] Monocytes/100 WBC (Bld) 11.3 % High 0-10 [facility] Comment on above: Performed By: #### M 100.651, L501.5200, L100.0100, L501.9985, BTSPAT, L500.2500 ####[facility] [address] [place], [address] Neutrophils/100 WBC (Bld) 58.4 % Normal 47-70 [facility] Comment on above: Performed By: #### M 100.651, L501.5200, L100.0100, L501.9985, BTSPAT, L500.2500 ####[facility] [address] [place], [address] Nucleated RBC (Bld) [#/Vol] 0 10*3/uL Normal 0-5 [facility] Comment on above: Performed By: #### M 100.651, L501.5200, L100.0100, L501.9985, BTSPAT, L500.2500 ####[facility] [address] [place], [address] Platelet mean volume (Bld) [Entitic vol] 10.3 fL Normal 6.2-12.0 [facility] Comment on above: Performed By: #### M 100.651, L501.5200, L100.0100, L501.9985, BTSPAT, L500.2500 ####[facility] [address] [place], [address] Platelets (Bld) [#/Vol] 229 10*3/uL Normal 150-450 [facility] Comment on above: Performed By: #### M 100.651, L501.5200, L100.0100, L501.9985, BTSPAT, L500.2500 ####[facility] [address] [place], [address] RBC (Bld) [#/Vol] 4.59 10*6/uL Low 4.6-6.2 [facility] Comment on above: Performed By: #### M 100.651, L501.5200, L100.0100, L501.9985, BTSPAT, L500.2500 ####[facility] [address] [place], [address] RDW SD 48.1 fl High 35.1-43.9 [facility] Comment on above: Performed By: #### M 100.651, L501.5200, L100.0100, L501.9985, BTSPAT, L500.2500 ####[facility] [address] [place], [address] WBC (Bld) [#/Vol] 7.6 10*3/uL Normal 4.4-11.0 [facility] Comment on above: Performed By: #### M 100.651, L501.5200, L100.0100, L501.9985, BTSPAT, L500.2500 ####[facility] [address] [place], [address] Hemoglobin A1con 12-20-2024 HbA1c (Bld) [Mass fraction] 6.1 % High <=5.6 [facility] Comment on above: Result Comment: Norm al < 5.7 % Prediabetic 5.7 - 6.4 % Diabetic >or= 6.5 % Please note range changes. Performed By: #### M 100.651, L501.5200, L100.0100, L501.9985, BTSPAT, L500.2500 ####[facility] [address] [place], [address] Magnesiumon 12-20-2024 Magnesium [Mass/Vol] 2.3 mg/dL High 1.5-2.2 [facility] Comment on above: Performed By: #### M 100.651, L501.5200, L100.0100, L501.9985, BTSPAT, L500.2500 ####[facility] [address] [place], [address] Type AND Screen - PAT ONLYon 12-20-2024 Ab SCREEN GEL Negative Normal [facility] Comment on above: Order Comment: Reaso n for Laboratory Test [id number] laminectomy Performed By: #### M 100.651, L501.5200, L100.0100, L501.9985, BTSPAT, L500.2500 ####[facility] [address] [place], [place], [id number] MR/PAT.ANEon 12-19-2024 MR/PAT.ANE [facility] Medical Records Department [address] [place] [address] PAT - Anesthesia 12/19/24 1740 MR#: [id number] Acct: [id number] Name: JAI LUNA Rep #: [id number] : 1950 74 From: Dexter Wheeler MD PCP: Dr. Katy Faust MD Status:PRE [facility] Y Race: C Location: [facility] Pre-Assessment Diagnosis/Proposed Procedure Planned Operative Procedure(s): Lumbar laminectomy L3-4 and L4-5 Anesthesia History Anesthesia History - boiler washer: Anesthesia History - boiler washer Hx Hospitalization Yes: 12/2023 cervical fusion 12/19/24 10:25 Any Problems With Anesthesia No 12/19/24 10:25 Cholinesterase deficiency No 12/19/24 10:25 You/Your Family Experience No 12/19/24 10:25 fever (hyperthermia) with Relationship Recent Exposure to Contagious No 01/18/24 05:58 Disease Does patient have nerve No 12/19/24 10:25 stimulator Patient instructed to have device shut off --Does patient have Pacemaker or ICD? When Was Last Pacemaker Check QUESTION #4 FULL TEXT: You/Your Family Experience fever (hyperthermia) with Anesthesia Last Oral Intake Last Oral intake: Last Oral Intake NPO since Meds taken in AM with sips of water? Meds patient instructed to take am of surgery PONV PONV - boiler washer: PONV - boiler washer Female No 12/19/24 10:25 HX of Motion Sickness No 12/19/24 10:25 HX of N/V After Surgery No 12/19/24 10:25 Non-Smoker Yes 12/19/24 10:25 Duration of Surgery greater Yes 12/19/24 10:25 than 60 minutes Number of Risk Factors 2 12/19/24 10:25 PONV Score Moderate Risk 12/19/24 10:25 Height Weight Height Weight: Anesthesia: Height Weight Height 5 ft 6 in 10/13/24 08:58 Respiratory Assessment Respiratory Assessment - boiler washer: Respiratory Tract Infection Hx - boiler washer Hx Respiratory Tract Infection No 12/19/24 10:25 STOP Sleep Apnea STOP Sleep Apnea - boiler washer: STOP Sleep Apnea - boiler washer Hx Hypertension No 12/19/24 10:25 Hx Sleep Apnea No 12/19/24 10:25 CPAP No 12/19/24 10:25 BIPAP No 12/19/24 10:25 Do you snore loudly (louder No 12/19/24 10:25 than talking or can be heard Do you often feel tired/ No 12/19/24 10:25 fatigued/ sleepy during daytime? Has anyone observed you stop No 12/19/24 10:25 breathing during sleep? STOP Results Negative 12/19/24 10:25 QUESTION #5 FULL TEXT : Do you snore loudly (louder than talking or can be heard through closed doors)? 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 Specify any problems Hx of Preganancy in last 3 N/A 12/19/24 10:25 Months Nurse Filling Out Transfusion NBUCHER 12/19/24 10:25 Questions: Date: 12/19/24 12/19/24 10:25 Time: :12/19/24 10:25 Patient unable to answer at this time (ie. confused, unrespo /Reproductio n History /Reproductiv e History - boiler washer: /Reproductiv e Hx- boiler washer Hx Now No 12/19/24 10:25 Gestational Age (in weeks): EDC: Hx Hx Para Hx Section SAB No 12/19/24 10:25 PFSH Medical History (Updated 12/19/24 @ 10:31 by Enid Francis) Leg cramps Obesity (BMI 30.0-34.9) MRSA (methicillin resistant staph aureus) culture positive Deaf Wears hearing aid Wears glasses Cancer High cholesterol DVT (deep venous thrombosis) Injury of head and neck Loss of consciousness Gastric reflux Former smoker History of edema History of echocardiogram History of stress test Cardiology follow-up encounter Pulmonary embolism Gastric artery aneurysm Ileostomy present Rectal cancer Intra abdominal hemorrhage Dilated aortic root 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 Subclavian artery stenosis, left GERD (gastroesophageal reflux disease) Meniere's disease Bilateral carotid artery stenosis Old myocardial infarction Premature ventricular co (more content not included)... Normal [facility] Cardiology Visit Reporton Cardiology Visit Report [facility] [address] [place], [place] [address] OFFICE VISIT Date of Service: 11/29/24 MR#: [id number] Acct: [id number] Name: JAI LUNA Rep #: [id number] : 1950 Provider: ALTAGRACIA zaidi Age/Sex: 74/M Location: [facility] Status: Signed HPI HPI History of Present Illness Details: JAI LUNA, is a 74 M who presents to the office today for follow-up. He has a history of coronary artery disease status post bypass surgery with MURPHY to LAD, RSVG to OM, and SVG to PDA in August 1994 and PTCA/SHIN to mid/distal RCA in November 2016 and a total of 6 stented segments last of which appears to been in 2017, hypertension, and hyperlipidemia. He is a previous smoker. Pt has been diagnosed with rectal cancer. He did undergo chem and radiation. Unfortunately the tumor returned. He did undergo surgery on 01/27/2022. Post operative complications he had a blood vessel rupture in his abdominal area, he was lift flighted to [facility]. He then had complications for PE/DVTs. He did require thrombectomy in both is legs and lungs. It was noted on his CTA of his chest that he had left subclavian stenosis. This was subsequently intervened upon by Dr. Reynolds with a stenting procedure and now his blood pressures are equal in both arms. He had negative ABIs done in April 2022. He also had carotid ultrasounds done April 2022 that showed some irregular plaque and less than 50% stenosis. In March 2022 the patient was diagnosed with bilateral pulmonary emboli by CTA. An echocardiogram March 03, 2022 showed that his LV systolic function was normal with an EF in the 70% range the right ventricle was normal in size right ventricular systolic function was normal. This was really unchanged from a previous echo done at the [facility] 02/13/2022. The last catheterization November 2016 the MURPHY graft to the mid LAD was patent with no significant distal disease although it was a small vessel. Saphenous vein graft to the OM1 branch was patent and the saphenous vein graft to the right coronary was totally occluded. The patient was noted to have in-stent restenosis in the mid right coronary which was some of the treated with stenting. Currently the patient denies any recurrence of his mid retrosternal chest pain which was his anginal equivalent prompting his original CABG and subsequent stenting procedures. The stenting procedures were done at [facility] by Dr. Joshua Lloyd. He denies palpitations. He states bilateral lower extremity edema. He denies claudication. He denies shortness of breath with activity, shortness of breath at rest, orthopnea, or PND. He denies chronic cough. He denies significant, sudden weight gain. He denies lightheadedness, dizziness, near-syncope, or syncope. He denies blood in urine, blood in stool, or epistaxis. He denies fever with chills. He denies myalgia. He states weakness and fatigue. His exercise level has remained stable. Intake Vital Signs 10/13/24 08:58 11/29/24 07:49 Height 5 ft 6 in 5 ft 6 in Weight: 194 lb 191 lb BMI 31.3 30.8 BP 139/77 H Blood Pressure Location Lt brachial Position Sitting Respiration 18 Pulse 76 Pulse Source Monitor Pulse Oximetry (%) 95 Intake Visit Reasons: Clearance visit Java Integration Developer Required: No Is patient in pain?: No Allergies clindamycin Allergy (Intermediate, Verified 11/29/24 10:42) Abd cramps/diarrhea cat dander (cats) Adverse Reaction (Verified 11/29/24 10:42) PT UNSURE OF REACTION codeine Adverse Reaction (Verified 11/29/24 10:42) Upset Stomach Medications ???Medication ???Instructions ???Recorded ???Confirmed ???Type coenzyme Q10 50 mg capsule (Co 100 mg PO DAILY vitamin 03/04/18 1 History Q-10) cholecalciferol (vitamin D3) 50 4,000 unit PO DAILY vitamin 11/29/24 History mcg (2,000 unit) capsule aspirin 81 mg tablet,delayed 81 mg PO DAILY 05/05/23 11/29/24 H istory release (Adult Low Dose Aspirin) Held on 01/19/24. Instructions: Resume on 01/21/24. magnesium 250 mg tablet 500 mg PO DAILY 05/05/23 11/29/24 History rosuvastatin 10 mg tablet 10 mg PO QDAY #90 tabs 11/10/23 Rx multivitamin 1 tab PO DAILY 01/04/24 11/29/24 H istory Have you fallen in the past year?: No Nurse's Note: lumbar surgery scheduled for december dr. 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 Normal [facility] Orthopedic Visit Reporton Orthopedic Visit Report [facility] [address] [place] [address] [address] [place] [address] OFFICE VISIT Date of Service: 10/13/24 MR#: [id number] Acct: [id number] Name: JAI LUNA Rep #: [id number] : 1950 Provider: Dr. Howard Siddiqui MD Age/Sex: 74/M Location: [facility] Status: Signed Intake Vital Signs 04/25/24 10:35 10/13/24 08:58 Height 5 ft 6 in 5 ft 6 in Weight: 194 lb BMI 31.3 Intake Visit Reasons: THORACIC SPINE Allergies clindamycin Allergy (Intermediate, Verified 10/13/24 08:30) Abd cramps/diarrhea cat dander (cats) Adverse Reaction (Verified 10/13/24 08:30) PT UNSURE OF REACTION codeine Adverse Reaction (Verified 10/13/24 08:30) Upset Stomach Medications ???Medication ???Instructions ???Recorded ???Confirmed ???Type coenzyme Q10 50 mg capsule (Co 100 mg PO DAILY vitamin 03/04/18 0 10/13/24 History Q-10) cholecalciferol (vitamin D3) 50 4,000 unit PO DAILY vitamin 10/13/24 History mcg (2,000 unit) capsule aspirin 81 mg tablet,delayed 81 mg PO DAILY 05/05/23 10/13/24 H istory release (Adult Low Dose Aspirin) Held on 01/19/24. Instructions: Resume on 01/21/24. magnesium 250 mg tablet 500 mg PO DAILY 05/05/23 10/13/24 History rosuvastatin 10 mg tablet 10 mg PO QDAY #90 tabs 11/10/23 Rx clopidogrel 75 mg tablet (Plavix) 75 mg PO DAILY 01/04/24 10/13/24 History Held on 01/19/24. Instructions: Resume on 01/21/24. multivitamin 1 tab PO DAILY 01/04/24 10/13/24 H istory Have you fallen in the past year?: No PFSH Medical History (Updated 10/13/24 @ 09:12 by Izzy Castro RN) Obesity (BMI 30.0-34.9) MRSA (methicillin resistant staph aureus) culture positive Deaf Wears hearing aid Wears glasses Cancer High cholesterol DVT (deep venous thrombosis) Injury of head and neck Loss of consciousness Gastric reflux Former smoker History of edema History of echocardiogram History of stress test Cardiology follow-up encounter Pulmonary embolism Gastric artery aneurysm Ileostomy present Rectal cancer Intra abdominal hemorrhage Dilated aortic root 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 Subclavian artery stenosis, left GERD (gastroesophageal reflux disease) Meniere's disease Bilateral carotid artery stenosis Old myocardial infarction Premature ventricular contraction Peripheral vascular disease Presence of stent in coronary artery ( 12/22/16) Essential hypertension 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 Hypoacusis Dyslipidemia HTN (hypertension) CAD (coronary artery disease) Surgical History History of coronary artery stent placement Presence of coronary angioplasty implant and graft ( 12/22/16) History of tonsillectomy History of transurethral resection of prostate ( 09/2016) S/P CABG (coronary artery bypass graft) ( 09/16/98) S/P PTCA (percutaneous transluminal coronary angioplasty) ( 12/22/16) Family History Father CAD (coronary artery disease) Myocardial infarction, Onset Age: 45 Mother Carotid artery stenosis Social History Smoking Status: Former smoker how long ago did patient quit smokin alcohol intake: current details: occasional HPI THORACIC SPINE Details: This documentation accurately reflects the service provided and the decisions made by me, Dr. Howard Siddiqui MD 10/13/24 0826. Part of today???s visit was documented by Radha MUSTAFA and Izzy Castro RN, acting as scribe. JAI LUNA is a 74 year old M here today for MRI review of the thoracic spine. He states that he is doing exercises at home and does continue to have the scapula pain. The pain is worse on the left side. He reports muscle cramps in his back that extends down into his legs. Patient denies any changes to his symptoms of his mid back. He does take Tylenol for pain as needed. He was able to walk a mile earlier this week. Yesterday he exacerbated the low back pain by doing yard work, he had to stop and sit down. The low back pain does radiate bilaterally into his legs, the left leg is the worst. He does take Plavix and Aspirin daily. The patient is a 74-year-old male presenting with spinal stenosis and associated symptoms. He reports pain across the hips and lower back, extending down the legs, with heaviness and weakness, particularly in the left leg, exacerbated by activity and relieved by rest. He has a history of tendinitis, likely from extensive golfing, causing pain in the left shoulder and scapula, initially debilitating but now manageable. His past medical history includes rectal cancer, treated s (more content not included)... Normal [facility] Arterial Doppler ultrasound reportOrdered By: Raghu Reynolds on 10-10-2024 Study report [facility] [address] [place] [address] US Art Duplex Unilat UP Extrem 10/10/24 0807 MR#: [id number] Acct: [id number] Name: JAI LUNA Rep #:[id number] : 1950 74 From: Raghu Kwan Attending Dr: JANICE Bocanegra Stat us: REG CLI Ordering Dr: Naty Amato Date: Location: [facility] Sex: M C Admitted: Reason For Study Reason For Study: Lt Subclavian A Stent LEFT Left Subclavian Prox velocity = 165.6 cm/sec. Left Subclavian Mid velocity = 191.9 cm/sec. Left Subclavian Dist velocity = 168.3 cm/sec. Unable to visualize Subclavian Stent. Left Axillary velocity = 76.6 cm/sec. Left Brachial velocity = 140.3 cm/sec. Left Radial velocity = 92.0 cm/sec. Left Ulnar velocity = 73.6 cm/sec. VL/US Art Duplex Unilat UP Extrem Interpretation Summary Left subclavian/axillary arteries patent with normal velocities and no evidence of stenosis. Ordering Physician: Naty Amato Referring Physician: Katy Faust Performed By: Saúl Pearson Jassi 10/10/24 1343 Date _ Raghu Reynolds MD CC: JANICE Bocanegra; Dr. Katy Faust MD ~ Date Dictated: 10/10/24 0807 Date Transcribed: 10/10/24 1343 Ordnance Artificer Helper: Signed [facility] Work Phone: Arterial study reportOrdered By: Raghu Reynolds on 10-10-2024 Noninvasive arteriosclerosis study report [facility] Cardiovascular Services [address] [place] [address] Upper Extremity Arterial Study 10/10/24825 MR#: [id number] Acct: [id number] Name: JAI LUNA Rep #:[id number] : 1950 74 From: Raghu Kwan Attending Dr: JANICE Bocanegra Stat us: REG CLI Ordering Dr: Naty Amato Date: Location: [facility] Sex: M C Admitted: Reason For Study Reason For Study: S/P Lt Subclavian A Stent Procedure A bilateral upper extremity continuous wave Doppler with analog waveform analysis and segmental pressures. Left Segmental Pressures Left brachial= 128mmHg. Left forearm by way of the radial artery = 147mmHg. Leftradial= 160mmHg. Left ulnar= 140mmHg. Left digit = 156 mmHg. The left brachial waveforms are triphasic. The left radial waveforms are triphasic. The left ulnar waveforms are triphasic. Right Segmental Pressures Right brachial= 132mmHg. Right forearm pressure by way of the radial artery = 145mmHg. Right radial= 171mmHg. Right ulnar= 150mmHg. Right digit = 143 mmHg. The right brachial waveforms are triphasic. The right radial waveforms are triphasic. The right ulnar waveforms are triphasic. Indices The right wrist-brachial index is 1.30. The right digital-brachial index is 1.08. The left wrist-brachial index is 1.21. The left digital-brachial index is 1.18. VL/Upper Extremity Arterial Study Interpretation Summary Right wrist-brachial index 1.3, normal. Digit index and Doppler/PVR waveforms ofthe right arm normal at rest. Left wrist-brachial index 1.21, normal. Digit index and Doppler/PVR waveforms ofthe left arm normal at rest. Ordering Physician: Naty Amato Referring Physician: Katy Faust Performed By: Saúl Pearson, [facility] 10/10/24 1341 Date _ Raghu Reynolds MD CC: JANICE Bocanegra; Dr. Katy Faust MD ~ Date Dictated: 10/10/24825 Date Transcribed: 10/10/24 134 Ordnance Artificer Helper: Signed [facility] Work Phone: US Art Duplex Unilat UP [facility] 10-10-2024 US Art Duplex Unilat UP Extrem [facility] [address] [place] [address] US Art Duplex Unilat UP Extrem 10/10/24 08 MR#: [id number] Acct: [id number] Name: JAI LUNA Rep #: [id number] : 1950 74 From: Raghu Reynolds MD Attending Dr: JANICE Bocanegra Status: REG CLI Ordering Dr: Naty Amato Date: 10/10/24 Location: [facility] Sex: M C Admitted: Reason For Study Reason For Study: Lt Subclavian A Stent LEFT Left Subclavian Prox velocity = 165.6 cm/sec. Left Subclavian Mid velocity = 191.9 cm/sec. Left Subclavian Dist velocity = 168.3 cm/sec. Unable to visualize Subclavian Stent. Left Axillary velocity = 76.6 cm/sec. Left Brachial velocity = 140.3 cm/sec. Left Radial velocity = 92.0 cm/sec. Left Ulnar velocity = 73.6 cm/sec. /US Art Duplex Unilat UP Extrem Interpretation Summary Left subclavian/axillary arteries patent with normal velocities and no evidence of stenosis. Ordering Physician: Naty Amato Referring Physician: Katy Faust Performed By: Saúl Pearson, T 10/10/24 1343 Date Raghu Reynolds MD CC: JNAICE Bocanegra; Dr. Katy Faust MD Date Dictated: 10/10/24 08 Date Transcribed: 10/10/24 134 Ordnance Artificer Helper: Signed Normal [facility] Upper Extremity Arterial Diogo dyon 10-10-2024 Upper Extremity Arterial Study [facility] [address] [place] [address] Upper Extremity Arterial Study 10/10/24 0826 MR#: [id number] Acct: [id number] Name: JAI LUNA Rep #: [id number] : 1950 74 From: Raghu Reynolds MD Attending Dr: JANICE Bocanegra Status: REG CLI Ordering Dr: Naty Amato Date: 10/10/24 Location: [facility] Sex: M C Admitted: Reason For Study Reason For Study: S/P Lt Subclavian A Stent Procedure A bilateral upper extremity continuous wave Doppler with analog waveform analysis and segmental pressures. Left Segmental Pressures Left brachial= 128mmHg. Left forearm by way of the radial artery = 147mmHg. Left radial= 160mmHg. Left ulnar= 140mmHg. Left digit = 156 mmHg. The left brachial waveforms are triphasic. The left radial waveforms are triphasic. The left ulnar waveforms are triphasic. Right Segmental Pressures Right brachial= 132mmHg. Right forearm pressure by way of the radial artery = 145mmHg. Right radial= 171mmHg. Right ulnar= 150mmHg. Right digit = 143 mmHg. The right brachial waveforms are triphasic. The right radial waveforms are triphasic. The right ulnar waveforms are triphasic. Indices The right wrist-brachial index is 1.30. The right digital-brachial index is 1.08. The left wrist- brachial index is 1.21. The left digital-brachial index is 1.18. VL/Upper Extremity Arterial Study Interpretation Summary Right wrist-brachial index 1.3, normal. Digit index and Doppler/PVR waveforms of the right arm normal at rest. Left wrist-brachial index 1.21, normal. Digit index and Doppler/PVR waveforms of the left arm normal at rest. Ordering Physician: Naty Amato Referring Physician: Katy Faust Performed By: Saúl Pearson, [facility] 10/10/24 1341 Date Raghu Reynolds MD CC: JANICE Bocanegra; Dr. Katy Faust MD Date Dictated: 10/10/24825 Date Transcribed: 10/10/24 134 Ordnance Artificer Helper: Signed Normal [facility] PT D/C Summary (1)on 025 PT D/C Summary (1) [facility] Physical Therapy [facility] [address] [place] [address] [address] [place] [address] / REHABILITATION SERVICES DISCHARGE SUMMARY MR#: [id number] Acct: [id number] Name: JAI LUNA Rep #: [id number] : 1950 74 From: Vinh Sweeney PT, ATC Referring Dr.: Dr. Howard Siddiqui MD Status: REG RCR Insurance: MEDICARE PART A B [facility] Discharge Summary D/C summary: It has been my pleasure to treat JAI LUNA referred by Dr. Howard Sididqui MD, with the diagnosis of Lumbar stenosis for a total of 6 visit(s). Discharge Date: Please see the following information for a summary of their discharge status. Subjective Subjective: Pt reports his strength and mobility have improved. His pain is still about the same Pain Low back pain: Pain Intensity (Out of 10): 0 Overall Improvement % Improvement: 70 Objective Objective/Function: LBP is 0/10 today, but still increases with ambulation L LE radiculopathy is unchanged Pt is I with HEP Goals Goal 1:: Decrease LBP x 50% to aid with ambulation Goal Progress: Goal Met Goal 2:: Decrease the frequency and intensity of L LE radiculopathy c 50% to aid with IADL's Goal Progress: Not Progressing Goal 3:: I with HEP Goal Progress: Goal Met Plan Plan: Discharge to HEP D/C Information d/c sentence: If there are questions or concerns regarding this patient's physical therapy, please feel free to call me at [phone]. Thank you for the referral of this patient. Sincerely, Vinh Sweeney, PT, ATC Balance/Gait/Function al tests Balance/Special Test Scores Oswestry Low Back Score: 6 Improvement % Improvement: 70 09/22/24 0903 CC: Dr. Howard Siddiqui MD; Dr. Katy Faust MD [facility] Signed Normal [facility] Spine Thoracic W/WO Contrast on 09-20-2024 Spine Thoracic W/WO Contrast [facility] Services [address] [place] [id number] Spine Thoracic W/WO Contrast MR#: [id number] Acct: [id number] Name: JAI LUNA Rep #: [id number] : 1950 74 From: Vikash Hoffman MD PCP: Dr. Katy Faust MD Status: REG CLI Study: Spine Thoracic W/WO Contrast Date of Exam: Exam# [id number] Ordering Dr: Howard Siddiqui MD PROCEDURE: SPINE THORACIC W/WO CONTRAST 09/20/2024 REASON FOR EXAM: THORACIC RADICULOPATHY AND HISTORY OF GI MALIGNANC TECHNIQUE: Thoracic spine MRI without and with intravenous gadolinium-based contrast. Multiplanar and multisequence images were obtained. CONTRAST: MultiHance VOLUME: 17ML 20 gauge IV COMPARISON: None. FINDINGS: Vertebrae: Unremarkable. No abnormal enhancement. Alignment: Normal. Spinal Cord: Unremarkable. Disc spaces: Multilevel degenerate changes without significant canal stenosis. Paraspinal Tissues: No abnormal enhancement. Unremarkable. Postcontrast images: Unremarkable. MRI/Spine Thoracic W/WO Contrast IMPRESSION: Unremarkable pre and post contrast MRI thoracic spine. No evidence of acute process. Reading Location: [facility] CC: Dr. Howard Siddiqui MD; Dr. Katy Faust MD Ordnance Artificer Helper: Signed Normal [facility] Orthopedic Visit Reporton Orthopedic Visit Report [facility] [address] [place] [address] OFFICE VISIT Date of Service: 09/13/24 MR#: [id number] Acct: [id number] Name: JAI LUNA Rep #: [id number] : 1950 Provider: Dr. Howard Siddiqui MD Age/Sex: 74/M Location: [facility].JORGE Status: Signed Intake Vital Signs 04/25/24 10:35 Height 5 ft 6 in Intake Visit Reasons: THORACIC SPINE Allergies clindamycin Allergy (Intermediate, Verified 09/13/24 13:28) Abd cramps/diarrhea cat dander (cats) Adverse Reaction (Verified 09/13/24 13:28) PT UNSURE OF REACTION codeine Adverse Reaction (Verified 09/13/24 13:28) Upset Stomach Medications ???Medication ???Instructions ???Recorded ???Confirmed ???Type coenzyme Q10 50 mg capsule (Co 100 mg PO DAILY vitamin 03/04/18 0 09/13/24 History Q-10) cholecalciferol (vitamin D3) 50 4,000 unit PO DAILY vitamin 09/13/24 History mcg (2,000 unit) capsule aspirin 81 mg tablet,delayed 81 mg PO DAILY 05/05/23 09/13/24 H istory release (Adult Low Dose Aspirin) Held on 01/19/24. Instructions: Resume on 01/21/24. magnesium 250 mg tablet 500 mg PO DAILY 05/05/23 09/13/24 History rosuvastatin 10 mg tablet 10 mg PO QDAY #90 tabs 11/10/23 Rx clopidogrel 75 mg tablet (Plavix) 75 mg PO DAILY 01/04/24 09/13/24 History Held on 01/19/24. Instructions: Resume on 01/21/24. multivitamin 1 tab PO DAILY 01/04/24 09/13/24 H istory Have you fallen in the past year?: No PFSH Medical History MRSA (methicillin resistant staph aureus) culture positive Deaf Wears hearing aid Wears glasses Cancer High cholesterol DVT (deep venous thrombosis) Injury of head and neck Loss of consciousness Gastric reflux Former smoker History of edema History of echocardiogram History of stress test Cardiology follow-up encounter Pulmonary embolism Gastric artery aneurysm Ileostomy present Rectal cancer Intra abdominal hemorrhage Dilated aortic root 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 Subclavian artery stenosis, left GERD (gastroesophageal reflux disease) Meniere's disease Bilateral carotid artery stenosis Old myocardial infarction Premature ventricular contraction Peripheral vascular disease Presence of stent in coronary artery ( 12/22/16) Essential hypertension 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 Hypoacusis Dyslipidemia HTN (hypertension) CAD (coronary artery disease) Surgical History History of coronary artery stent placement Presence of coronary angioplasty implant and graft ( 12/22/16) History of tonsillectomy History of transurethral resection of prostate ( 09/2016) S/P CABG (coronary artery bypass graft) ( 09/16/98) S/P PTCA (percutaneous transluminal coronary angioplasty) ( 12/22/16) Family History Father CAD (coronary artery disease) Myocardial infarction, Onset Age: 45 Mother Carotid artery stenosis Social History Smoking Status: Former smoker how long ago did patient quit smokin alcohol intake: current details: occasional HPI THORACIC SPINE Details: This documentation accurately reflects the service provided and the decisions made by me, Dr. Howard Siddiqui MD 09/13/24 2516. Part of today???s visit was documented by Radha MUSTAFA and Izzy Castro RN, acting as scribe. JAI LUNA is a 74 year old M here today for pain that he has been having underneath his left scapula that started 6 weeks ago. He thought at first it was a strained muscle but it has worsened over time. He did see Norm Alvarez an insurance sales assistant of his PCP. She did prescribed him a muscle relaxer which didn't make him feel well so he stopped taking it. He does not recall the name of muscle relaxer. He has been doing PT for his lower back for the past week. He states that his pain isn't constant and only occurs when he moves a certain way. Yesterday when he was in PT they had him lay on his stomach and he had radiating pain from the scapula into his ribs and up into his armpit that feel like an electric shock. She states that if he turns his head to the left it also triggers the pain. His PCP told him that it may be tendonitis. He did have a C5-7 anterior cervical discectomy and fusion dos: 01/18/[address] Siddiqui. He has been having pain in the right shoulder like he had on the left shoulder before surgery. He has been also having some pain on the left side of his neck but he thinks that its coming from the scapular pain. He denies any issues with swallowing. The patient is a 74-year-old male pr (more content not included)... Normal [facility] Thoracic Spine 3 Viewson Thoracic Spine 3 Views [facility] [address] [place] [address] Thoracic Spine 3 Views MR#: [id number] Acct: [id number] Name: JAI LUNA Rep #: [id number] : 1950 M 74 From: Enedina Mitchell nd, MD PCP: Dr. Katy Faust MD Status: DEP AMB Study: Thoracic Spine 3 Views Date of Exam: 09/13/24 Exam# [id number] Ordering Dr: Zaira De Jesus PROCEDURE: THORACIC SPINE 3 VIEWS 09/13/2024 REASON FOR EXAM: PT HAD SURGERY, NOW PAIN UNDER LEFT SCAPULA TECHNIQUE: THORACIC SPINE 3 VIEWS COMPARISON: CT abdomen pelvis 04/25/2024. FINDINGS: Vertebrae: No acute fracture. Mild multilevel chronic vertebral body height loss. Multilevel anterior flowing disc osteophyte complexes. Discs: Moderate multilevel degenerative disc disease. Alignment: No traumatic listhesis. Other: Partially visualized cervical fixation hardware, prior median sternotomy, and coil embolization in the left upper quadrant. The visualized bowel loops are nondilated. RAD/Thoracic Spine 3 Views IMPRESSION: No acute finding. Chronic findings as described. Reading Location: [id number] CC: JANICE Barakat; Dr. Katy Faust MD Ordnance Artificer Helper: Signed Normal [facility] Inital Evaluation (1) - PTon 08-29-2024 Inital Evaluation (1) - PT [facility] [address] [place] [address] / REHABILITATION SERVICES INITIAL EVALUATION MR#: [id number] Acct: [id number] Name: JAI LUNA Rep #: [id number] : 1950 74 From: Vinh Sweeney PT, ATC Referring Dr.: Dr. Howard Siddiqui MD Status: REG RCR Insurance: MEDICARE PART A B [employer] Patient's Visit Information Visit Information Visit Information: JAI LUNA is a 74 year old M referred to Physical Therapy by Dr. Howard Siddiqui MD with a diagnosis of Lumbar stenosis. Date of Evaluation: 08/29/24 Physical Therapist: Vinh Sweeney, PT, ATC Visit Plan Frequency: 2x /Week Duration: 3 Weeks Plan: SKTC/DKTC stretching, Postural edu, L/S stab ex's, and HEP Subjective Subjective: Pt reports he is here for his stenosis of his LB. Pt reports this pain has been present for many years. Pt notes he played a lot of golf over the years and always carried his bag, and he believes that may be what has caused his pain. Pt notes walking any distance now at this time is very difficult. Pt reports his doctor believes he may have to have surgery in the near future, but wants to try PT first. Pt reports tingling and numbness in his L LE at this time when he ambulates a lot. Pt reports this has resulted in his L LE becoming weak. Pt notes he has had an x-ray on his L/S which revealed spinal stenosis. Pt is retired at this time. Pt reports he is limited with all outside yard duties secondary to his pain. Pt denies sleep difficulty at this time secondary to pain. Pt reports sitting will help to decrease his pain. 0/10 pain while sitting here in the clinic, but notes his pain increases to 10/10 at worst. Pain Low back pain: Pain Intensity (Out of 10): 0 Pain Intensity Range: 10 Objective Objective: Neuro: L LE is hyposensitive to light touch. R LE is WNL. MMT: L knee ext rated at 4/5. All other B LE MMT is grossly 5/5 throughout and equal bilaterally. ROM: Pt is moderately limited with L/S extension. All other motions are WNL throughout. Repeated movements: SKTC and DKTC 10 sec x 3 ea decreased pain. Balance/Special Test Scores Oswestry Low Back Score: 7 Goals Goal 1:: Decrease LBP x 50% to aid with ambulation Goal Time Frame: 2-4 Weeks Goal 2:: Decrease the frequency and intensity of L LE radiculopathy c 50% to aid with IADL's Goal Time Frame: 2-4 Weeks Goal 3:: I with HEP Goal Time Frame: 2-4 Weeks Rehabilitation Potential Physical Therapy Diagnosis: Pt reports LBP, L LE radiculopathy, and decreased L/S ROM secondary to stenosis of the L/S Rehabilitation Potential: Good Anticipated Interventions Patient/Client Instruction: Educate patient on: Condition and Plan of Care For the Purpose of:: To improve self management Therapeutic Exercise to Include: Strength training, Endurance training, Body mechanics, Postural training and Dynamic Lumbar Stabilization For the Purpose of:: To decrease pain, To increase ROM and To improve muscle performance and motor function Text: Thank you for the opportunity to evaluate your patient. For Medicare and Medicare HMO plans, please review the plan of care and approve it. It will need to be FAXED BACK to us at [phone] for Medicare purposes. For Medicare only, by signing this I certify the plan of care. Please let me know if there are questions or concerns regarding this plan of care. Physician Signature: Date : 08/29/24 1124 CC: Dr. Howard Siddiqui MD; Dr. Katy Faust MD [facility] Signed Normal [facility] MR/BMS.BVSon 08-22-2024 MR/BMS.BVS [facility] [address] [place], [place] [address] [place] [address] OFFICE VISIT Date of Service: 08/23/24 MR#: [id number] Acct: [id number] Name: JAI LUNA Rep #: [id number] : 1950 Provider: JANICE Bocanegra Age/Sex: 74/M Location: [facility].BVS Status: Signed Intake Vital Signs 04/25/24 10:35 08/23/24 10:08 Height 5 ft 6 in Weight: 194 lb BP 120/80 Blood Pressure Location Lt brachial Position Sitting Respiration 16 Pulse 62 Pulse Source Monitor Temp 97.3 F L Temp Source Temporal Pulse Oximetry (%) 98 Oxygen Delivery Method room air Intake Visit Reasons: Discuss results,1 YFU Is patient in pain?: No Allergies clindamycin Allergy (Intermediate, Verified 08/23/24 10:09) Abd cramps/diarrhea cat dander (cats) Adverse Reaction (Verified 08/23/24 10:09) PT UNSURE OF REACTION codeine Adverse Reaction (Verified 08/23/24 10:09) Upset Stomach Medications ???Medication ???Instructions ???Recorded ???Confirmed ???Type coenzyme Q10 50 mg capsule (Co 100 mg PO DAILY vitamin 03/04/18 0 08/23/24 History Q-10) cholecalciferol (vitamin D3) 50 4,000 unit PO DAILY vitamin 08/23/24 History mcg (2,000 unit) capsule aspirin 81 mg tablet,delayed 81 mg PO DAILY 05/05/23 08/23/24 H istory release (Adult Low Dose Aspirin) Held on 01/19/24. Instructions: Resume on 01/21/24. magnesium 250 mg tablet 500 mg PO DAILY 05/05/23 08/23/24 History rosuvastatin 10 mg tablet 10 mg PO QDAY #90 tabs 11/10/23 Rx clopidogrel 75 mg tablet (Plavix) 75 mg PO DAILY 01/04/24 08/23/24 History Held on 01/19/24. Instructions: Resume on 01/21/24. multivitamin 1 tab PO DAILY 01/04/24 08/23/24 H istory Have you fallen in the past year?: No [facility] History MRSA (methicillin resistant staph aureus) culture positive Deaf Wears hearing aid Wears glasses Cancer High cholesterol DVT (deep venous thrombosis) Injury of head and neck Loss of consciousness Gastric reflux Former smoker History of edema History of echocardiogram History of stress test Cardiology follow-up encounter Pulmonary embolism Gastric artery aneurysm Ileostomy present Rectal cancer Intra abdominal hemorrhage Dilated aortic root 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 Subclavian artery stenosis, left GERD (gastroesophageal reflux disease) Meniere's disease Bilateral carotid artery stenosis Old myocardial infarction Premature ventricular contraction Peripheral vascular disease Presence of stent in coronary artery ( 12/22/16) Essential hypertension 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 Hypoacusis Dyslipidemia HTN (hypertension) CAD (coronary artery disease) Surgical History History of coronary artery stent placement Presence of coronary angioplasty implant and graft ( 12/22/16) History of tonsillectomy History of transurethral resection of prostate ( 09/2016) S/P CABG (coronary artery bypass graft) ( 09/16/98) S/P PTCA (percutaneous transluminal coronary angioplasty) ( 12/22/16) Family History Father CAD (coronary artery disease) Myocardial infarction, Onset Age: 45 Mother Carotid artery stenosis Social History Smoking Status: Former smoker how long ago did patient quit smokin alcohol intake: current details: occasional HPI HPI HPI: JAI LUNA, is a 74 M who presents to the office today for annual follow-up of subclavian steal syndrome s/p L subclavian angioplasty/stent on 07/08/23. He completed routine arterial study on 08/01/24 which demonstrated L WBI 1.16 with normal/triphasic waveforms. He reports in general his LUE has been feeling very good. He recently has developed some new L shoulder pain with point tenderness around his scapula; PCP evaluated and prescribed muscle relaxers but he took one with poor reaction so did not take any further and his symptoms have continued to worse. Otherwise, no pain/swelling/discolo ration into his hand; no syncope/presyncope with use of his LUE. He also endorses significant LLE radiculopathy with activity, he is following with Dr. Siddiqui for this and is anticipating he will have a spine procedure to address this as well. Otherwise, denies any significant change to his health over the last year. ROS General General: Yes fatigue; No weight change, appetite, colon cancer, breast cancer or weakness HEENT HEENT: No difficulty swallowing, eye injury, eye surgery, swollen glands or hoarseness Endo Endocrine: No thyroid diseas (more content not included)... Normal [facility] CNOVon 08-15-2024 CNOV Office Visit (INTMWS ) JEREMYJAI M ([id number]) 1950 M Date Time Provider Department 08/15/24 3:20 PM NORM PARKER INTMWS During your visit today, we recorded the following information about you: Pulse Blood pressure Weight 62/minute 132/70 87.3 kg Norm Parker APRN.SECURITY SYSTEM INSTALLER 08/15/2024 4:07 PM Signed SUBJECTIVE Jai Luna is a 74 year old male here today for acute concern. Chief Complaint Patient presents with: Pain: upper left back on going for about 3 week and no change in intensity HPI Chaka Luna is a 74-year-old male with a history of spinal stenosis, presenting with a 3-week history of sharp, aching pain beneath the left scapula. Chaka reports a 3-week history of sharp, aching pain beneath the left scapula, described as a "piercing pain." He initially thought it was a pulled muscle from outdoor activities but notes that the pain has not improved over the 3 weeks. The pain is position-dependent, exacerbated by certain positions in bed and activities like checking the tray under the refrigerator. It is not constant and does not worsen but remains the same. He denies chest pain and has no history of cardiac issues during physical activities like mowing the lawn or carrying heavy objects. He has not tried heat or ice but has applied various salves without relief. He uses a tennis ball in a sock to apply pressure to the area, which provides some relief. Chaka has a history of spinal stenosis in the lower spine, causing significant difficulty with ambulation. He is scheduled for physical therapy but is skeptical about its effectiveness, anticipating potential surgery to alleviate nerve compression. He also has a history of severe left shoulder pain, previously diagnosed as a pinched nerve, which was alleviated following cervical surgery by Dr. Reed. He reports residual weakness in the left arm, with noticeable bicep atrophy prior to the surgery. Additionally, Chaka has a history of rectal cancer, for which he underwent a colostomy. He reports that a stoma ulcer has significantly improved following a change to a 3-piece colostomy bag. He denies current pain associated with the stoma. His medications were reviewed today and his list is now up to date. Medications Current Outpatient Medications Medication Sig calcium carbonate/vitamin D3 (CALCIUM 600 WITH VITAMIN D3 ORAL) Take 1 tablet by mouth once daily. Ascorbic Acid (VITAMIN C) 1,000 mg tablet Take 1,000 mg by mouth once daily. MAGNESIUM CARBONATE ORAL Take 500 mg by mouth once daily. Calcium Lactate 100 mg calcium tab Take 1 tablet by mouth once daily. rosuvastatin (CRESTOR) 10 mg tablet Take 1 tablet by mouth once daily. clopidogrel (PLAVIX) 75 mg tablet Take 75 mg by mouth. multivitamin tablet Take 1 tablet by mouth once daily. aspirin, enteric coated (ADULT LOW DOSE ASPIRIN) 81 mg EC tablet Take 1 tablet by mouth once daily. coenzyme Q10 (COENZYME Q-10) 100 mg cap capsule Take 100 mg by mouth once daily. Cholecalciferol, Vitamin D3, 50 mcg (2,000 unit) cap Take 1 capsule by mouth two times a week. tiZANidine (ZANAFLEX) 4 mg tablet Take 1 tablet by mouth every 8 hours as needed. Miscellaneous Medical Supply Increase monthly supply of ostomy pouches to 12 per month(8 per month not adequate) No current facility-administered medications for this visit. ALLERGIES Allergen Reactions Cat Dander Other: See Comments Clindamycin GI Upset Codeine GI Upset ACTIVE PROBLEM LIST History of Pulmonary Embolism - 09/22/2023 Pvd (Peripheral Vascular Disease) - 09/22/2023 History of Dvt (Deep Vein Thrombosis) - 09/22/2023 Acute Deep Vein Thrombosis (Dvt) of Proximal Vein of Left Lower Extremity ([facility]) - 07/21/2022 Pulmonary Embolism and Infarction ([facility]) - 03/02/2022 Pulmonary Embolism ([facility]) - 02/13/2022 Hypokalemia - 02/10/2022 Urinary Retention - [address] ([facility]) - 01/28/2022 Rectal Cancer ([facility]) - 01/27/2022 Rectal Malignant Neoplasm ([facility]) - 05/29/2021 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 Bilateral Carotid Artery Stenosis - 04/30/2021 Cervical Radiculopathy - 04/30/2021 Hearing Loss - 04/30/2021 History of Cardiac Catheterization - 04/30/2021 Status Post Coronary Artery Bypass Graft - 04/30/2021 Atherosclerosis of Coronary Artery Bypass Graft - 01/18/2013 Dyslipidemia - 01/16/2013 History of Myocardial Infarction - 08/29/1998 Social History Tobacco Use Smoking status: Former Current packs/day: 0.00 Average packs/day: 1 pack/day for 30.0 years (30.0 ttl pk-yrs) Types: Cigarettes Start date: 01/28/1970 Quit date: 01/29/2000 Years since quittin.5 Smokeless tobacco: Never Vaping Use Vaping status: Never Used Substance Use Topics Alcohol use: Not Currently Comment: rarely Drug use: No Review of Systems Respiratory: Negative. Cardiovascular: Negative. Musculoske (more content not included)... Normal [facility] Arterial study reportOrdered By: Raghu Reynolds on 08-03-2024 Noninvasive arteriosclerosis study report [facility] [address] [place] [address] Upper Extremity Arterial Study 08/01/24 0849 MR#: [id number] Acct: [id number] Name: JEREMYJAI M Rep #:[id number] : 1950 74 From: Raghu Kwan Attending Dr: JANICE Bocanegra Stat us: REG CLI Ordering Dr: Naty Amato Date: Location: [facility] Sex: M C Admitted: Reason For Study Reason For Study: s/p left subclavian artery stent Procedure A bilateral upper extremity continuous wave Doppler with analog waveform analysis and segmental pressures. Left Segmental Pressures Left brachial= 138mmHg. Left ulnar= 164mmHg. Left radial= 165mmHg. Left digit = 138 mmHg. The left brachial waveforms are triphasic. The left radial waveforms are biphasic. The left ulnar waveforms are biphasic. Right Segmental Pressures Right brachial= 142mmHg. Right ulnar= 159mmHg. Right radial= 173mmHg. Right digit = 130 mmHg. The right brachial waveforms are triphasic. The right radial waveforms are triphasic. The right ulnar waveforms are triphasic. Indices The right wrist-brachial index by the radial artery is 1.22. The right wrist-brachial index by the ulnar artery is 1.12. The right digital-brachial index is 0.92. The left wrist-brachial index by the radial artery is 1.16. The left wrist- brachial index by the ulnar artery is 1.15. The left digital-brachial index is 0.97. VL/Upper Extremity Arterial Study Interpretation Summary Right wrist-brachial index 1.22, normal. Digit-brachial index and PVR/Doppler waveforms of the right arm normal at rest. Left wrist-brachial index 1.16, normal. Digit-brachial index and PVR/Doppler waveforms of the left arm normal at rest. Ordering Physician: Naty Amato Referring Physician: Katy Faust M.D. Performed By: Isaura Faria RVT 08/03/24 1039 Date _ Raghu Reynolds MD CC: JANICE Bocanegra; Dr. Katy Faust MD ~ Date Dictated: 08/01/24 0849 Date Transcribed: 08/03/24 1039 Ordnance Artificer Helper: Signed [facility] Work Phone: Upper Extremity Arterial Diogo dyshruti 08-01-2024 Upper Extremity Arterial Study [facility] [place] [address] Upper Extremity Arterial Study 08/01/24 0849 MR#: [id number] Acct: [id number] Name: JAI LUNA Rep #: [id number] : 1950 74 From: Raghu Reynolds MD Attending Dr: JANICE Bocanegra Status: REG CLI Ordering Dr: Naty Amato Date: 08/01/24 Location: CVS Sex: M C Admitted: Reason For Study Reason For Study: s/p left subclavian artery stent Procedure A bilateral upper extremity continuous wave Doppler with analog waveform analysis and segmental pressures. Left Segmental Pressures Left brachial= 138mmHg. Left ulnar= 164mmHg. Left radial= 165mmHg. Left digit = 138 mmHg. The left brachial waveforms are triphasic. The left radial waveforms are biphasic. The left ulnar waveforms are biphasic. Right Segmental Pressures Right brachial= 142mmHg. Right ulnar= 159mmHg. Right radial= 173mmHg. Right digit = 130 mmHg. The right brachial waveforms are triphasic. The right radial waveforms are triphasic. The right ulnar waveforms are triphasic. Indices The right wrist-brachial index by the radial artery is 1.22. The right wrist-brachial index by the ulnar artery is 1.12. The right digital-brachial index is 0.92. The left wrist-brachial index by the radial artery is 1.16. The left wrist- brachial index by the ulnar artery is 1.15. The left digital-brachial index is 0.97. VL/Upper Extremity Arterial Study Interpretation Summary Right wrist-brachial index 1.22, normal. Digit-brachial index and PVR/Doppler waveforms of the right arm normal at rest. Left wrist-brachial index 1.16, normal. Digit-brachial index and PVR/Doppler waveforms of the left arm normal at rest. Ordering Physician: Naty Amato Referring Physician: Katy Faust M.D. Performed By: Isaura Faria T 08/03/24 1039 Date Raghu Reynolds MD CC: JANICE Bocanegra; Dr. Katy Faust MD Date Dictated: 08/01/24 0849 Date Transcribed: 08/03/241038 Ordnance Artificer Helper: Signed [facility] CNNURSEon 07-31-2024 CNNURSE Nurse Visit (CORSMN) JAI LUAN ([id number]) 1950 M Date Time Provider Department 07/31/24 8:15 AM STOMA THERAPY COR[facility] During your visit today, we recorded the following information about you: Leonardo Villareal, DERRICK 07/31/2024 9:39 AM Signed ET/WOCN Nursing Consult Topic: ET/WOCN Consultation Note ET Outcome: follow up with ulcer. Pt stated that he noted a lot of bleeding at the ulcer and his stoma. He also reported that his ulcer was healed and pouching system has been working well. Removed the pouch and assessment was done. No bleeding noted today. ET's Next Scheduled Visit: as needed Stoma Type: Loop ileostomy Diameter:1" (tight fit), pt was instructed to cut pouch opening 1 1/8" Location: RLQ Protrusion: Budded Mucosal condition and color: Red and moist Mucocutaneous junction Intact Peristomal Skin: Other: healed ulcer at the 9 o'clock Location of Skin Impairment: see above Peristomal contour: Rounded Supportive Tissue: Soft Character of output: liquid effluent Emptying frequency per day: 7-8 times per day Current pouching system: [employer]ec Hailey Fit Natura 1 3/4" durahesive flat flange, Cera ring, drainable pouch Current wearing time: 3-4 days Recommendations: Pouching System: same pouching system Comment: There were no bleeding noted from peristomal skin and stoma today. Pt will receive the schedule appliance package this week. Time Increment: 45 minutes TRAVIS RobbinsN RN CWOCN [facility] nursing pager [phone] (M-F 7a-4p, Sat, Sun, Holiday 7a-3p) Allergies As of Date: 07/31/2024 Noted Allergy Reaction CAT DANDER 02/27/2022 14 - Other: See Comments CLINDAMYCIN 03/28/2021 8 - GI Upset CODEINE 06/20/2007 8 - GI Upset Date Reviewed: 07/05/2024 Reviewed by: Norm Parker APRN.SECURITY SYSTEM INSTALLER - Fully Assessed Primary Visit Diagnosis: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) [Z43.2] Prescriptions as of 07/31/2024 - calcium carbonate/vitamin D3 (CALCIUM 600 WITH VITAMIN D3 ORAL) Take 1 tablet by mouth once daily. - Ascorbic Acid (VITAMIN C) 1,000 mg tablet Take 1,000 mg by mouth once daily. - MAGNESIUM CARBONATE ORAL Take 500 mg by mouth once daily. - Calcium Lactate 100 mg calcium tab Take 1 tablet by mouth once daily. - rosuvastatin (CRESTOR) 10 mg tablet Take 1 tablet by mouth once daily. - Miscellaneous Medical Supply Increase monthly supply of ostomy pouches to 12 per month(8 per month not adequate) - clopidogrel (PLAVIX) 75 mg tablet Take 75 mg by mouth. - multivitamin tablet Take 1 tablet by mouth once daily. - aspirin, enteric coated (ADULT LOW DOSE ASPIRIN) 81 mg EC tablet Take 1 tablet by mouth once daily. - coenzyme Q10 (COENZYME Q-10) 100 mg cap capsule Take 100 mg by mouth once daily. - Cholecalciferol, Vitamin D3, 50 mcg (2,000 unit) cap Take 1 capsule by mouth two times a week. 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] 04/30/2021 Atherosclerosis of coronary artery bypass graft*01/18/2013 Bilateral carotid artery stenosis [I65.23] 04/30/2021 Cervical radiculopathy [M54.12] 04/30/2021 Dyslipidemia [E78.5] 01/16/2013 Essential hypertension [I10] 04/30/2021 04/06/2022 Hearing loss [H91.90] 04/30/2021 History of cardiac catheterization [Z98.890] 04/30/2021 History of myocardial infarction [I25.2] 08/29/1998 Status post coronary artery bypass graft [Z95.1]04/30/2021 Rectal malignant neoplasm (HCC) [C20] 05/29/2021 Obesity, Class I, BMI 30-34.9 [E66.811] 01/26/2022 04/06/2022 Rectal cancer (HCC) [C20] 01/27/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) [Z93.2] 01/28/2022 Postoperative pain [G89.18] 01/28/2022 02/24/2022 Intraabdominal hemorrhage [R58] 02/01/2022 02/24/2022 Respiratory insufficiency [R06.89] 02/01/2022 02/10/2022 FINESSE (acute kidney injury) (HCC) [N17.9] 02/03/2022 07/07/2022 Class: Acute Malnutrition of mild degree (HCC) [E44.1] 02/05/2022 05/22/2022 Obesity, Class II, BMI 35-39.9 [E66.812] 02/05/2022 04/06/2022 Urinary retention [R33.9] 2022 Hypophosphataemia [E83.39] 2022 02/24/2022 Hypokalemia [E87.6] 02/10/2022 Pulmonary embolism (HCC) [I26.99] 02/13/2022 Inadequate pain control [R52] 02/16/2022 02/18/2022 Pulmonary embolism and infarction (HCC) [I26.99]03/02/2022 Pre-op evaluation [Z01.818] 05/18/2022 07/07/2022 Acute deep vein thrombosis (DVT) of proximal ve*07/21/2022 History of pulmonary embolism [Z86.711] 09/22/2023 PVD (peripheral vascular disease) ([facility]) [I73.9] 09/22/2023 History of DVT (deep vein thrombosis) [Z86.718] 09/22/2023 Encounter Status:Closed by LEONARDO VILLAREAL on 07/31/24 [facility] CNPN Telephone (CORSMN) JAI LUNA ([id number]) 1950 M Date Time Provider Department 07/18/24 Ramiro CHEUNG During your visit today, we recorded the following information about you: [facility], Jeyson Jackson 07/18/2024 11:46 AM Signed Jai Luna [phone], checking the status of new order being sent to [facility] [phone], fax [phone]. Praveena Duran, RN 07/18/2024 12:47 PM Signed WO nursing returned patient message regarding: Pt needs an updated supply form faxed to [facility]. Left Message: No- spoke directly to pt Information/Recommend ations provided regarding: Updated supply form faxed to [facility] as requested. Fax confirmation received. All WO Nursing needs addressed. Time spent: 15 minutes TRAVIS HoffmanN, RN, CWOCN For non-emergent WO Nursing patient care needs - Please place a consult via Epic under "ostomy". WOC Nurse Available Hours: M-F: [phone]; Weekends AND Holidays: [phone] For emergent WO Nursing patient care needs - Page #[phone], during available hours only. Allergies As of Date: 07/18/2024 Noted Allergy Reaction CAT DANDER 02/27/2022 14 - Other: See Comments CLINDAMYCIN 03/28/2021 8 - GI Upset CODEINE 06/20/2007 8 - GI Upset Date Reviewed: 07/05/2024 Reviewed by: Norm Parker APRN.CNP - Fully Assessed Reason for Visit: Orders [681] Prescriptions as of 07/18/2024 - calcium carbonate/vitamin D3 (CALCIUM 600 WITH VITAMIN D3 ORAL) Take 1 tablet by mouth once daily. - Ascorbic Acid (VITAMIN C) 1,000 mg tablet Take 1,000 mg by mouth once daily. - MAGNESIUM CARBONATE ORAL Take 500 mg by mouth once daily. - Calcium Lactate 100 mg calcium tab Take 1 tablet by mouth once daily. - rosuvastatin (CRESTOR) 10 mg tablet Take 1 tablet by mouth once daily. - Miscellaneous Medical Supply Increase monthly supply of ostomy pouches to 12 per month(8 per month not adequate) - clopidogrel (PLAVIX) 75 mg tablet Take 75 mg by mouth. - multivitamin tablet Take 1 tablet by mouth once daily. - aspirin, enteric coated (ADULT LOW DOSE ASPIRIN) 81 mg EC tablet Take 1 tablet by mouth once daily. - coenzyme Q10 (COENZYME Q-10) 100 mg cap capsule Take 100 mg by mouth once daily. - Cholecalciferol, Vitamin D3, 50 mcg (2,000 unit) cap Take 1 capsule by mouth two times a week. 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] 04/30/2021 Atherosclerosis of coronary artery bypass graft*01/18/2013 Bilateral carotid artery stenosis [I65.23] 04/30/2021 Cervical radiculopathy [M54.12] 04/30/2021 Dyslipidemia [E78.5] 01/16/2013 Essential hypertension [I10] 04/30/2021 04/06/2022 Hearing loss [H91.90] 04/30/2021 History of cardiac catheterization [Z98.890] 04/30/2021 History of myocardial infarction [I25.2] 08/29/1998 Status post coronary artery bypass graft [Z95.1]04/30/2021 Rectal malignant neoplasm (HCC) [C20] 05/29/2021 Obesity, Class I, BMI 30-34.9 [E66.811] 01/26/2022 04/06/2022 Rectal cancer (HCC) [C20] 01/27/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) [Z93.2] 01/28/2022 Postoperative pain [G89.18] 01/28/2022 02/24/2022 Intraabdominal hemorrhage [R58] 02/01/2022 02/24/2022 Respiratory insufficiency [R06.89] 02/01/2022 02/10/2022 FINESSE (acute kidney injury) (HCC) [N17.9] 02/03/2022 07/07/2022 Class: Acute Malnutrition of mild degree (HCC) [E44.1] 02/05/2022 05/22/2022 Obesity, Class II, BMI 35-39.9 [E66.812] 02/05/2022 04/06/2022 Urinary retention [R33.9] 2022 Hypophosphataemia [E83.39] 2022 02/24/2022 Hypokalemia [E87.6] 02/10/2022 Pulmonary embolism (HCC) [I26.99] 02/13/2022 Inadequate pain control [R52] 02/16/2022 02/18/2022 Pulmonary embolism and infarction (HCC) [I26.99]03/02/2022 Pre-op evaluation [Z01.818] 05/18/2022 07/07/2022 Acute deep vein thrombosis (DVT) of proximal ve*07/21/2022 History of pulmonary embolism [Z86.711] 09/22/2023 PVD (peripheral vascular disease) (HCC) [I73.9] 09/22/2023 History of DVT (deep vein thrombosis) [Z86.718] 09/22/2023 Encounter Status:Closed by JEYSON ELKINS on 07/18/24 [facility]20[facility] JEREMYJAI Sevilla ([id number]) 1950 M Date Time Provider Department 07/17/24 8:15 AM STOMA THERAPY EMIGDIO During your visit today, we recorded the following information about you: Praveena Duran RN 07/18/2024 12:44 PM Addendum [facility] Nursing Consult Topic: [facility] Consultation Note Outcome: Pt to A30 for appointment with [facility] Nursing. He has an established ileostomy for several years. He is here today with complaints of peristomal ulcer and pain. We discussed switching from a flat to a convex pouching system. Pt agreed with this. He has an established relationship with [employer] for supplies. If he likes the new pouch he can order it from [employer]. I provided him with x4 sets of samples. Next Scheduled Visit: 2 week for f/u with [facility] nursing to assess peristomal ulcer and new pouching system Assessment: Stoma Type: Loop ileostomy Diameter: slightly larger than 1" Location: RLQ Protrusion: Budded Mucosal condition and color: Red and moist Mucocutaneous junction Intact Peristomal Skin: Ulceration at 9 o'clock- concern is for pressure related injury at this time. Ulcer measures 1cm x 0.5cm x 0.1cm. Wound bed is marbled moist red and yellow tissue. No active drainage. Induration noted 1cm around ulcer Peristomal contour: slightly concave directly around stoma, rounded and bulging to outer peristomal border Supportive Tissue: soft when lying, firm when sitting upright Character of output: bilious brown liquid Emptying frequency per day: varies Current pouching system: one-piece Sharri Premier convex drainable pouch. Stoma paste. Current wearing time: 2 days- seal was intact but concern is for pressure injury related to use of convexity. Will switch to flat pouching system to see if this helps. Recommendations: Skin Care: applied Convatec Stomahesive powder followed by 3m Cavilon no-sting skin sealant Pouching System: 1 3/4" Convatec SurFit Natura Durahesive flat cut-to-fit flange. [place] CearRing. Drainable pouch. Wear Time Goal: 3 days Time Increment: 1 hour SCOTTIE Hoffman, RN, CWOCN For non-emergent [facility] Nursing patient care needs - Please place a consult via Epic under "ostomy". WO Nurse Available Hours: M-F: [phone]; Weekends AND Holidays: [phone] For emergent WO Nursing patient care needs - Page #[phone], during available hours only. Praveena Duran RN 07/18/2024 12:41 [place] [address] Patient: Jai Luna Patient Address: [address] [place] [address] Preferred Gender: male Date of : 1950 Type of Stoma: Loop Ileostomy Diagnosis: Ileostomy Status Z93.2 OSTOMY SUPPLY ORDER FORM Pouch: ConvaTec: 1 ?" Natura + Drainable pouch, Transparent #[id number] 30 day use - 2 Boxes Wafer: ConvaTec: Hailey-Fit Natura 1 3/" Flat Durahesive # [id number] 30 day use - 2 Boxes Moldable Ring: [place] CeraRing Regular # [id number] 30 day use - 2 Boxes Refills: 11 Attending Physician: Dr. Cheung For immediate authorization, please contact the physician?s office. SIGNATURE: Praveena uDran RN PATIENT NAME: Jai Luna DATE: July 18, 2024 TIME: 12:38 PM CONTACT #: [phone] Allergies As of Date: 07/17/2024 Noted Allergy Reaction CAT DANDER 02/27/2022 14 - Other: See Comments CLINDAMYCIN 03/28/2021 8 - GI Upset CODEINE 06/20/2007 8 - GI Upset Date Reviewed: 07/05/2024 Reviewed by: Norm Parker APRN.SECURITY SYSTEM INSTALLER - Fully Assessed Primary Visit Diagnosis: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) [Z43.2] Prescriptions as of 07/18/2024 - calcium carbonate/vitamin D3 (CALCIUM 600 WITH VITAMIN D3 ORAL) Take 1 tablet by mouth once daily. - Ascorbic Acid (VITAMIN C) 1,000 mg tablet Take 1,000 mg by mouth once daily. - MAGNESIUM CARBONATE ORAL Take 500 mg by mouth once daily. - Calcium Lactate 100 mg calcium tab Take 1 tablet by mouth once daily. - rosuvastatin (CRESTOR) 10 mg tablet Take 1 tablet by mouth once daily. - Miscellaneous Medical Supply Increase monthly supply of ostomy pouches to 12 per month(8 per month not adequate) - clopidogrel (PLAVIX) 75 mg tablet Take 75 mg by mouth. - multivitamin tablet Take 1 tablet by mouth once daily. - aspirin, enteric coated (ADULT LOW DOSE ASPIRIN) 81 mg EC tablet Take 1 tablet by mouth once daily. - coenzyme Q10 (COENZYME Q-10) 100 mg cap capsule Take 100 mg by mouth once daily. - Cholecalciferol, Vitamin D3, 50 mcg (2,000 unit) cap Take 1 capsule by mouth two times a week. 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 Normal [facility] Orthopedic Visit Reporton Orthopedic Visit Report [facility] [address] [place] [address] OFFICE VISIT Date of Service: 07/06/24 MR#: [id number] Acct: [id number] Name: JAI LUNA Rep #: [id number] : 1950 Provider: Dr. Howard Siddiqui MD Age/Sex: 74/M Location: [facility] Status: Signed Intake Vital Signs 04/25/24 10:35 Height 5 ft 6 in Intake Visit Reasons: LUMBAR SPINE Is patient in pain?: Yes Allergies clindamycin Allergy (Intermediate, Verified 07/06/24 08:46) Abd cramps/diarrhea cat dander (cats) Adverse Reaction (Verified 07/06/24 08:46) PT UNSURE OF REACTION codeine Adverse Reaction (Verified 07/06/24 08:46) Upset Stomach Medications ???Medication ???Instructions ???Recorded ???Confirmed ???Type coenzyme Q10 50 mg capsule (Co 100 mg PO DAILY vitamin 03/04/18 0 07/06/24 History Q-10) cholecalciferol (vitamin D3) 50 4,000 unit PO DAILY vitamin 07/06/24 History mcg (2,000 unit) capsule aspirin 81 mg tablet,delayed 81 mg PO DAILY 05/05/23 07/06/24 H istory release (Adult Low Dose Aspirin) Held on 01/19/24. Instructions: Resume on 01/21/24. magnesium 250 mg tablet 500 mg PO DAILY 05/05/23 07/06/24 History rosuvastatin 10 mg tablet 10 mg PO QDAY #90 tabs 11/10/23 Rx clopidogrel 75 mg tablet (Plavix) 75 mg PO DAILY 01/04/24 07/06/24 History Held on 01/19/24. Instructions: Resume on 01/21/24. multivitamin 1 tab PO DAILY 01/04/24 07/06/24 H istory Have you fallen in the past year?: No PFSH Medical History MRSA (methicillin resistant staph aureus) culture positive Deaf Wears hearing aid Wears glasses Cancer High cholesterol DVT (deep venous thrombosis) Injury of head and neck Loss of consciousness Gastric reflux Former smoker History of edema History of echocardiogram History of stress test Cardiology follow-up encounter Pulmonary embolism Gastric artery aneurysm Ileostomy present Rectal cancer Intra abdominal hemorrhage Dilated aortic root 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 Subclavian artery stenosis, left GERD (gastroesophageal reflux disease) Meniere's disease Bilateral carotid artery stenosis Old myocardial infarction Premature ventricular contraction Peripheral vascular disease Presence of stent in coronary artery ( 12/22/16) Essential hypertension 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 Hypoacusis Dyslipidemia HTN (hypertension) CAD (coronary artery disease) Surgical History History of coronary artery stent placement Presence of coronary angioplasty implant and graft ( 12/22/16) History of tonsillectomy History of transurethral resection of prostate ( 09/2016) S/P CABG (coronary artery bypass graft) ( 09/16/98) S/P PTCA (percutaneous transluminal coronary angioplasty) ( 12/22/16) Family History Father CAD (coronary artery disease) Myocardial infarction, Onset Age: 45 Mother Carotid artery stenosis Social History Smoking Status: Former smoker how long ago did patient quit smokin alcohol intake: current details: occasional HPI LUMBAR SPINE Details: This documentation accurately reflects the service provided and the decisions made by me, Dr. Howard Siddiqui MD 07/06/24 0836. Part of today???s visit was documented by [ ], acting as scribe. JAI LUNA is a 74 year old M here today for lumbar spine symptoms. He has had these symptoms for about 5 years which is progressively worsening. Patient complains of bilateral leg pain, left greater than right. He denies any low back pain but complains of pain "across his hips", and points to his lumbar spine. He has worsening symptoms in the morning. He complains of leg achiness and decreased strength. He has pain with standing from sitting. He has difficulty getting off the ground due to weakness. Patient denies any pain medications. Patient denies any injections into his lumbar spine. He denies any numbness or tingling. He complains of cramping into his legs, left worse than right. He has an ulcer next to his stoma. He has an appointment on 07/17/24 in [place] for an evaluation and possible surgery. 04/21/24: JAI LUNA is a 74 year old M here today for s/p C5-7 anterior cervical discectomy and fusion DOS 01/18/2024. He reports healing has been going well. He denies any pain. He does complain of ongoing weakness in his left arm that has not gotten any better. He also reports weakness in his BLE. Continues to have significant low back pain and bilateral lower extremity radiation along with (more content not included)... Normal [facility] 07-05-2024 OV Office Visit (INTMWS ) JAI LUNA ([id number]) 1950 M Date Time Provider Department 07/05/24 8:00 AM NORM PARKER During your visit today, we recorded the following information about you: Pulse Blood pressure Weight 75/minute 138/80 86.3 kg Norm Parker APRN.SECURITY SYSTEM INSTALLER 07/05/2024 9:18 AM Signed SUBJECTIVE Jai Luna is a 74 year old male here today for acute concern. Chief Complaint Patient presents with: Derm Problem: ulcer near stoma for about 2 week has noted that it has enlarged since last bag change and very sore HPI Jai Luna is a 74 year old male. He is an established patient of Katy Faust MD. He is here today for concerns of issues with an ulcer near the stoma. Stoma also has been changing in shape, seems to be flattening out over the last few days. He has an ileostomy from prior abdominal surgeries. Onset for the ulcer has been 2-3 weeks ago. He is not able to change the bag/dressing daily due to restraint with insurance coverage of supplies. Site is sore. Prior surgeries with Dr. Cheung. His medications were reviewed today and his list is now up to date. Medications Current Outpatient Medications Medication Sig MAGNESIUM CARBONATE ORAL Take 1 tablet by mouth once daily. Calcium Lactate 100 mg calcium tab Take 1 tablet by mouth once daily. rosuvastatin (CRESTOR) 10 mg tablet Take 1 tablet by mouth once daily. clopidogrel (PLAVIX) 75 mg tablet Take 75 mg by mouth. multivitamin tablet Take 1 tablet by mouth once daily. aspirin, enteric coated (ADULT LOW DOSE ASPIRIN) 81 mg EC tablet Take 1 tablet by mouth once daily. coenzyme Q10 (COENZYME Q-10) 100 mg cap capsule Take 100 mg by mouth once daily. Cholecalciferol, Vitamin D3, 50 mcg (2,000 unit) cap Take 1 capsule by mouth two times a week. Miscellaneous Medical Supply Increase monthly supply of ostomy pouches to 12 per month(8 per month not adequate) No current facility-administered medications for this visit. ALLERGIES Allergen Reactions Cat Dander Other: See Comments Clindamycin GI Upset Codeine GI Upset ACTIVE PROBLEM LIST History of Pulmonary Embolism - 09/22/2023 Pvd (Peripheral Vascular Disease) - 09/22/2023 History of Dvt (Deep Vein Thrombosis) - 09/22/2023 Acute Deep Vein Thrombosis (Dvt) of Proximal Vein of Left Lower Extremity ([facility]) - 07/21/2022 Pulmonary Embolism and Infarction ([facility]) - 03/02/2022 Pulmonary Embolism ([facility]) - 02/13/2022 Hypokalemia - 02/10/2022 Urinary Retention - [address] ([facility]) - 01/28/2022 Rectal Cancer ([facility]) - 01/27/2022 Rectal Malignant Neoplasm ([facility]) - 05/29/2021 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 Bilateral Carotid Artery Stenosis - 04/30/2021 Cervical Radiculopathy - 04/30/2021 Hearing Loss - 04/30/2021 History of Cardiac Catheterization - 04/30/2021 Status Post Coronary Artery Bypass Graft - 04/30/2021 Atherosclerosis of Coronary Artery Bypass Graft - 01/18/2013 Dyslipidemia - 01/16/2013 History of Myocardial Infarction - 08/29/1998 Social History Tobacco Use Smoking status: Former Current packs/day: 0.00 Average packs/day: 1 pack/day for 30.0 years (30.0 ttl pk-yrs) Types: Cigarettes Start date: 01/28/1970 Quit date: 01/29/2000 Years since quittin.4 Smokeless tobacco: Never Vaping Use Vaping status: Never Used Substance Use Topics Alcohol use: Not Currently Comment: rarely Drug use: No Review of Systems Constitutional: Negative for chills, diaphoresis, fatigue and fever. Respiratory: Negative. Skin: Positive for wound. OBJECTIVE BP 138/80 Pulse 75 Wt 190 lb 4.1 oz (86.3kg) SpO2 97% Physical Exam Vitals and nursing note reviewed. Constitutional: General: He is awake. He is not in acute distress. Appearance: Normal appearance. He is well-developed and well-groomed. He is not ill-appearing, toxic-appearing or diaphoretic. HENT: Head: Normocephalic. Right Ear: External ear normal. Left Ear: External ear normal. Nose: Nose normal. Eyes: General: Vision grossly intact. Conjunctiva/sclera: Conjunctivae normal. Pupils: Pupils are equal, round, and reactive to light. Neck: Vascular: No JVD. Trachea: Trachea normal. Pulmonary: Effort: Pulmonary effort is normal. No accessory muscle usage, prolonged expiration or respiratory distress. Abdominal: Comments: Beefy red stoma to the right lateral abdomen. Around the 8 o'clock to 12 o'clock area beside the stoma there is a deep ulceration that is the area of concern. Skin: General: Skin is warm and dry. Capillary Refill: Capillary refill takes less than 2 seconds. Neurological: General: No focal deficit present. Mental Status: He is alert and oriented to person, place, and time. Mental status is at baseline. Psychiatric: Attention and Perception: Attention and perception normal. Mood and Affect: Mood and affe (more content not included)... Normal [facility] 07-05-2024 [facility] Telephone (INTMWS) JAI LUNA ([id number]) 1950 M Date Time Provider Department 07/05/24 KATY FAUST INTWS During your visit today, we recorded the following information about you: Norm Parker APRN.SECURITY SYSTEM INSTALLER 07/05/2024 9:21 AM Signed Good morning, Chaka is a mutual patient who was seen in the office this morning. He has a deep ulceration to the abdomen at the base of his stoma. Stoma output is normal and color is beefy red. The ulceration is painful. Would Dr. Duong or Rabia like to get him seen [facility] or would they like to get him seen with one of the ostomy nurses [facility] due to the concern of the potential for infection in the area and interference with the stoma. Thank you, Don Carvajal LPN 07/07/2024 8:31 AM Signed Allergies As of Date: 07/05/2024 Noted Allergy Reaction CAT DANDER 02/27/2022 14 - Other: See Comments CLINDAMYCIN 03/28/2021 8 - GI Upset CODEINE 06/20/2007 8 - GI Upset Date Reviewed: 07/05/2024 Reviewed by: Norm Parker APRN.SECURITY SYSTEM INSTALLER - Fully Assessed Reason for Visit: Patient Update [1234] Prescriptions as of 07/07/2024 - calcium carbonate/vitamin D3 (CALCIUM 600 WITH VITAMIN D3 ORAL) Take 1 tablet by mouth once daily. - Ascorbic Acid (VITAMIN C) 1,000 mg tablet Take 1,000 mg by mouth once daily. - MAGNESIUM CARBONATE ORAL Take 500 mg by mouth once daily. - Calcium Lactate 100 mg calcium tab Take 1 tablet by mouth once daily. - rosuvastatin (CRESTOR) 10 mg tablet Take 1 tablet by mouth once daily. - Miscellaneous Medical Supply Increase monthly supply of ostomy pouches to 12 per month(8 per month not adequate) - clopidogrel (PLAVIX) 75 mg tablet Take 75 mg by mouth. - multivitamin tablet Take 1 tablet by mouth once daily. - aspirin, enteric coated (ADULT LOW DOSE ASPIRIN) 81 mg EC tablet Take 1 tablet by mouth once daily. - coenzyme Q10 (COENZYME Q-10) 100 mg cap capsule Take 100 mg by mouth once daily. - Cholecalciferol, Vitamin D3, 50 mcg (2,000 unit) cap Take 1 capsule by mouth two times a week. 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] 04/30/2021 Atherosclerosis of coronary artery bypass graft*01/18/2013 Bilateral carotid artery stenosis [I65.23] 04/30/2021 Cervical radiculopathy [M54.12] 04/30/2021 Dyslipidemia [E78.5] 01/16/2013 Essential hypertension [I10] 04/30/2021 04/06/2022 Hearing loss [H91.90] 04/30/2021 History of cardiac catheterization [Z98.890] 04/30/2021 History of myocardial infarction [I25.2] 08/29/1998 Status post coronary artery bypass graft [Z95.1]04/30/2021 Rectal malignant neoplasm (HCC) [C20] 05/29/2021 Obesity, Class I, BMI 30-34.9 [E66.811] 01/26/2022 04/06/2022 Rectal cancer (HCC) [C20] 01/27/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) [Z93.2] 01/28/2022 Postoperative pain [G89.18] 01/28/2022 02/24/2022 Intraabdominal hemorrhage [R58] 02/01/2022 02/24/2022 Respiratory insufficiency [R06.89] 02/01/2022 02/10/2022 FINESSE (acute kidney injury) (HCC) [N17.9] 02/03/2022 07/07/2022 Class: Acute Malnutrition of mild degree (HCC) [E44.1] 02/05/2022 05/22/2022 Obesity, Class II, BMI 35-39.9 [E66.812] 02/05/2022 04/06/2022 Urinary retention [R33.9] 2022 Hypophosphataemia [E83.39] 2022 02/24/2022 Hypokalemia [E87.6] 02/10/2022 Pulmonary embolism (HCC) [I26.99] 02/13/2022 Inadequate pain control [R52] 02/16/2022 02/18/2022 Pulmonary embolism and infarction (HCC) [I26.99]03/02/2022 Pre-op evaluation [Z01.818] 05/18/2022 07/07/2022 Acute deep vein thrombosis (DVT) of proximal ve*07/21/2022 History of pulmonary embolism [Z86.711] 09/22/2023 PVD (peripheral vascular disease) (HCC) [I73.9] 09/22/2023 History of DVT (deep vein thrombosis) [Z86.718] 09/22/2023 Encounter Status:Closed by NORM PARKER on 07/05/24 [facility] CNOVon 05-31-2024 CNOV Office Visit (INTMWS ) JAI LUNA ([id number]) 1950 M Date Time Provider Department 05/31/24 3:40 PM KATY FAUST INTMWS During your visit today, we recorded the following information about you: Temperature Pulse Respiration Blood pressure 97 degrees 64/minute 16/minute 138/68 Weight 88.2 kg Katy Faust MD 05/31/2024 5:06 PM Signed This note was created using [employer]. Subjective Jai Luna is a 74 year old male. Chaka is a 74-year-old male with a history of lumbar stenosis, presenting with worsening bilateral lower extremity weakness and pain. Chaka reports that after walking approximately 50 yards, he experiences significant weakness and aching in both legs, necessitating rest. He also reports persistent aching across his hips, particularly in the left hip, which is most pronounced upon waking and improves with stretching. He denies any numbness, bladder dysfunction, or bowel dysfunction. He has an ileostomy and reports no issues with bladder function. Chaka has a history of lumbar stenosis, confirmed by MRI, and has consulted with two orthopedic surgeons who found no joint abnormalities on x-rays. He has also undergone vascular studies, including an ultrasound and ankle-brachial index, which showed normal circulation. 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 He is currently on a regimen of baby aspirin and Plavix. Chaka also reports recent onset of pain radiating down his left thigh, which he describes as similar to sciatica. He has previously undergone cervical spine surgery by Dr. Reed for left shoulder pain, which provided relief. He has not yet consulted Dr. Reed regarding his lower back issues. Review of Systems Objective BP 138/68 Pulse 64 Temp 36.1 ?C (97 ?F) (Left Tympanic) Resp 16 Wt 88.2 kg (194 lb 7.1 oz) BMI 32.61 kg/m? Physical Exam Constitutional: Appearance: Normal appearance. Pulmonary: Effort: Pulmonary effort is normal. Musculoskeletal: Lumbar back: No spasms or tenderness. Comments: Noted pain is across iliac crests on back. Shows that pain goes from left buttocks and can go down lateral thigh Neurological: Mental Status: He is alert. Assessment and Plan # Spinal stenosis of lumbar region with neurogenic claudication (M48.062) # Lumbar radiculopathy (M54.16) - Symptoms of neurogenic claudication and lumbar radiculopathy, including bilateral lower extremity pain and weakness, are worsening. - Previous imaging studies, including MRIs, have confirmed lumbar stenosis. - Educated patient on the pathophysiology of neurogenic claudication and lumbar radiculopathy, emphasizing the role of nerve compression in symptomatology. - Recommended postural adjustments, such as leaning forward while walking, to alleviate nerve compression. - Advised patient to schedule a follow-up appointment with Dr. Siddiqui for further evaluation and potential surgical intervention. - Discussed the possibility of seeking a second opinion from another process control specialist if symptoms persist or worsen. # Pain in both lower extremities (M79.604) - Pain in both lower extremities is likely secondary to lumbar stenosis and radiculopathy. - Symptoms are exacerbated by ambulation and improve with rest. - Advised patient on the use of assistive devices, such as a shopping cart, to reduce pain during walking. - Recommended continuation of current pain management strategies and follow-up with Dr. Siddiqui for further evaluation. # Bilateral lower extremity edema (R60.0) - Chronic bilateral lower extremity edema, more pronounced on the left side. - Patient is currently using compression stockings to manage edema. - No signs of acute deep vein thrombosis; previous vascular studies were normal. - Continue current management with compression stockings. # Presence of ileostomy (HCC) (Z93.2) - No issues with ileostomy function reported. - No signs of bowel obstruction or ileus. - Continue routine care and monitoring of ileostomy. I spent a total of 35 minutes on the date of the service which included [id number] patient care, completing clinical documentation, obtaining and/or reviewing separately obtained history, performing a medically appropriate examination, counseling and educating the patient/family/caregi carolann, and ordering medications, tests, or procedures . Katy Faust MD The patient consented to the use of [employer] software for draft documentation of the visit consistent with [facility]?s Notice of Privacy Practices. Katy Faust MD 05/31/2024 5:04 PM Addendum - Contact Dr. Reed to schedule an appointment to discuss worsening symptoms and potential treatment options for lumbar stenosis. - When walkin (more content not included)... Normal [facility] Urine Cultureon 04-27-2024 URC Below infection level. Mixed Gram Positive Organisms [place] Count 1000-10,000 MIXC Mixed contaminants. Submit a new specimen if indicated. Normal [facility] Comment on above: Performed By: #### M 100.2200 ####[facility] [address] [facility]. [place], [place], [address] Abdomen/Pelvis W IV Cont ONL Yon 04-25-2024 Abdomen/Pelvis W IV Cont ONLY [facility] [address] [place], [place] [id number] Abdomen/Pelvis W IV Cont ONLY MR#: [id number] Acct: [id number] Name: JAI LUNA Rep #: [id number] : 1950 M 74 From: Leno hardin MD PCP: Dr. Katy Faust MD Status: REG ER Study: Abdomen/Pelvis W IV Cont ONLY Date of Exam: Exam# [id number] Ordering Dr: Tejal Bassett PROCEDURE: ABDOMEN/PELVIS W IV CONT ONLY REASON FOR EXAM: History of bladder and rectal cancer. Ileostomy. Radiation and chemotherapy. TECHNIQUE: Abdomen and pelvis CT with intravenous contrast. No oral contrast. IV CONTRAST: 100 cc of Isovue-300. COMPARISON: Comparison is made with prior study dated February 01, 2022. FINDINGS: Lung bases: Clear coronary artery calcification. Liver: Once again, there are multiple bilateral cysts in both the right and left lobes of the liver. The previously seen hepatic subcapsular hematoma as cleared. Gallbladder: Several calcified gallstones. Spleen: Unremarkable. Metallic clips are seen in the region of the splenic hilum suggestive of possible embolization material within the splenic artery. Pancreas: Unremarkable. Adrenals: Unremarkable. Kidneys: Unremarkable. Bladder: An ileostomy is seen in the anterior right lower abdominal wall. Diffuse bladder wall thickening with increased markings in the surrounding fat. Possible cystitis should be ruled out. Reproductive Organs: Unremarkable. Bowel: Thickening of the rectal stump with stable increased soft tissue density in the presacral space. Anastomosis is seen in the distal portion of the rectum. Appendix: Normal. Lymph nodes: No suspicious lymph node enlargement. Vasculature: Mild diffuse atherosclerotic calcifications are noted. Peritoneum / Retroperitoneum: No ascites. No free air. Bones: Degenerative changes of the spine. CT/Abdomen/Pelvis W IV Cont ONLY IMPRESSION: Multiple hepatic cysts. Small gallstones. Diffuse bladder wall thickening with mild increased markings in the surrounding fat suggestive of possible inflammatory change. Ileostomy seen in the right lower quadrant. Stable presacral soft tissue density. One or more dose reduction techniques were used (e.g., Automated exposure control, adjustment of the mA and/or kV according to patient size, use of iterative reconstruction technique). Reading Location: [id number] CC: Dr. Katy Faust MD; JANICE [employer] Helper: Signed Normal [facility] Absolute lymphocyte countOrd ered By: Tejal Bassett on 04-25-2024 Lymphocytes Auto (Unsp spec) [#/Vol] 1.89 10*3/uL 0.83-4.51 [facility] Absolute neutrophil countOrd ered By: Tejal Bassett on 04-25-2024 Neutrophils (Bld) [#/Vol] 3.2 10*3/uL 2.0-7.7 [facility] Automated lymphocyte count a s percentage of total leukocytesOrdered By: Tejal Bassett on 04-25-2024 Lymphocytes/100 WBC Auto (Unsp spec) 28.7 % 19-41 [facility] BUN/creatinine ratioOrdered By: Tejal Bassett on 04-25-2024 Urea nitrogen/Creatinine [Mass ratio] 17.3 mg/mg 10-20 [facility] Comment on above: Previous reported re sult: 18.5 RATIOEdited by: AUTOINS on 04/25/24:1504 AMENDED REPORT 04/25/24 1504 BUN/CRE previously reported as: 18.5 RATIO Basophil percentageOrdered B y: Tejal Bassett on 04-25-2024 Basophils/100 WBC (Bld) 0.6 % 0-1 [facility] Bilirubin Test strip Ql (U)O rdered By: Tejal Bassett on 04-25-2024 Bilirubin Ql (U) Negative Negative [facility] Bilirubin, totalOrdered By: Tejal Bassett on 04-25-2024 Bilirubin [Mass/Vol] 0.33 mg/dL 0.00-1.30 [facility] Comment on above: Previous reported re sult: 0.36 mg/dLEdited by: AUTOINS on 04/25/24:1504 AMENDED REPORT 04/25/24 1504 T BILI previously reported as: 0.36 mg/dL CBC W/Diff, Automatedon 04-02 Absolute Lymph 1.89 X10 3/uL Normal 0.83-4.51 [facility] Comment on above: Performed By: #### L 500.4050, L100.0100 ####[facility] [address] [place], [address] Absolute Neut 3.2 X10 3/uL Normal 2.0-7.7 [facility] Comment on above: Performed By: #### L 500.4050, L100.0100 ####[facility] [address] [place], [address] Basophils/100 WBC (Bld) 0.6 % Normal 0-1 [facility] Comment on above: Performed By: #### L 500.4050, L100.0100 ####[facility] [address] [place], [address] Eosinophils/100 WBC (Bld) 3.3 % Normal 0-5 [facility] Comment on above: Performed By: #### L 500.4050, L100.0100 ####[facility] [address] [place], [address] Erythrocyte distribution width (RBC) [Ratio] 13.3 % Normal 11.6-14.6 [facility] Comment on above: Performed By: #### L 500.4050, L100.0100 ####[facility] [address] [place], [address] Hematocrit (Bld) [Volume fraction] 42.9 % Normal 40-54 [facility] Comment on above: Performed By: #### L 500.4050, L100.0100 ####[facility] [address] [place], [address] Hemoglobin (Bld) [Mass/Vol] 14.0 g/dL Normal 13.0-16.5 [facility] Comment on above: Performed By: #### L 500.4050, L100.0100 ####[facility] [address] [place], [address] IG% 0.800 Normal 0.0-0.9 [facility] Comment on above: Result Comment: IG% - Immature Granulocytes (promyelocytes, myelocytes and metamyelocytes) > 1% indicates that a LEFT SHIFT is Present. Performed By: #### L 500.4050, L100.0100 ####[facility] [address] [place], [address] Lymphocytes/100 WBC (Bld) 28.7 % Normal 19-41 [facility] Comment on above: Performed By: #### L 500.4050, L100.0100 ####[facility] [address] [place], [address] MCH (RBC) [Entitic mass] 31.0 pg Normal 27.0-32.0 [facility] Comment on above: Performed By: #### L 500.4050, L100.0100 ####[facility] [address] [place], [address] MCHC (RBC) [Mass/Vol] 32.6 g/dL Normal 32-36 [facility] Comment on above: Performed By: #### L 500.4050, L100.0100 ####[facility] [address] [place], [address] MCV (RBC) [Entitic vol] 95.1 fL High 80-94 [facility] Comment on above: Performed By: #### L 500.4050, L100.0100 ####[facility] [address] [place], [address] Monocytes/100 WBC (Bld) 17.6 % High 0-10 [facility] Comment on above: Performed By: #### L 500.4050, L100.0100 ####[facility] [address] [place], [address] Neutrophils/100 WBC (Bld) 49.0 % Normal 47-70 [facility] Comment on above: Performed By: #### L 500.4050, L100.0100 ####[facility] [address] [place], [address] Nucleated RBC (Bld) [#/Vol] 0 10*3/uL Normal 0-5 [facility] Comment on above: Performed By: #### L 500.4050, L100.0100 ####[facility] [address] [place], [address] Platelet mean volume (Bld) [Entitic vol] 9.8 fL Normal 6.2-12.0 [facility] Comment on above: Performed By: #### L 500.4050, L100.0100 ####[facility] [address] [place], [address] Platelets (Bld) [#/Vol] 320 10*3/uL Normal 150-450 [facility] Comment on above: Performed By: #### L 500.4050, L100.0100 ####[facility] [address] [place], [address] RBC (Bld) [#/Vol] 4.51 10*6/uL Low 4.6-6.2 [facility] Comment on above: Performed By: #### L 500.4050, L100.0100 ####[facility] [address] [place], [address] RDW SD 47.1 fl High 35.1-43.9 [facility] Comment on above: Performed By: #### L 500.4050, L100.0100 ####[facility] [address] [place], [address] WBC (Bld) [#/Vol] 6.6 10*3/uL Normal 4.4-11.0 [facility] Comment on above: Performed By: #### L 500.4050, L100.0100 ####[facility] [address] [place], [address] Comprehensive Metabolic Prof ilon 04-25-2024 Calcium [Mass/Vol] 9.1 mg/dL Normal 7.6-11.0 [facility] Comment on above: Performed By: #### L 500.4050, L100.0100 ####[facility] [address] [place], [address] Chloride [Moles/Vol] 106 mmol/L Normal 98-107 [facility] Comment on above: Performed By: #### L 500.4050, L100.0100 ####[facility] [address] [place], [address] CO2 [Moles/Vol] 19.0 mmol/L Low 21.0-32.0 [facility] Comment on above: Performed By: #### L 500.4050, L100.0100 ####[facility] [address] [place], [address] GAP 15 Normal 5-15 [facility] Comment on above: Performed By: #### L 500.4050, L100.0100 ####[facility] [address] [place], [address] Potassium [Moles/Vol] 4.0 mmol/L Normal 3.5-5.1 [facility] Comment on above: Performed By: #### L 500.4050, L100.0100 ####[facility] [address] [place], [address] Sodium [Moles/Vol] 140 mmol/L Normal 136-145 [facility] Comment on above: Performed By: #### L 500.4050, L100.0100 ####[facility] [address] [place], [address] Emergency Department Summary on 04-25-2024 Emergency Department Summary [facility] Medical Records Department [address] [place] [address] Emergency Department Summary 04/25/24 MR#: [id number] Acct: [id number] Name: JAI LUNA Rep #: [id number] : 1950 74 From: Tejal CAMACHO PCP: Dr. Katy Faust MD Status:DEP ER Location: ED HPI History of Present Illness Chief Complaint: Abd Pain Narrative Narrative: 73-year-old male with complex history including rectal cancer s/p resection with colostomy in 2021 with postoperative course that was complicated by intra-abdominal hemorrhage, DVT/PE, IVC filter on aspirin only presents with 1 week of left-sided abdominal pain. Pain is constant and nothing seems to make it better or worse. He feels like he is urinating more frequently but has no dysuria or hematuria. No fever, chills, nausea or vomiting. He states the output in his ostomy bag has been a normal amount but sometimes looks darker than usual based on what he eats. [facility] Medical History MRSA (methicillin resistant staph aureus) culture positive Deaf Wears hearing aid Wears glasses Cancer High cholesterol DVT (deep venous thrombosis) Injury of head and neck Loss of consciousness Gastric reflux Former smoker History of edema History of echocardiogram History of stress test Cardiology follow-up encounter Pulmonary embolism Gastric artery aneurysm Ileostomy present Rectal cancer Intra abdominal hemorrhage Dilated aortic root 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 Subclavian artery stenosis, left GERD (gastroesophageal reflux disease) Meniere's disease Bilateral carotid artery stenosis Old myocardial infarction Premature ventricular contraction Peripheral vascular disease Presence of stent in coronary artery ( 12/22/16) Essential hypertension 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 Hypoacusis Dyslipidemia HTN (hypertension) CAD (coronary artery disease) Home Medications ???Medication ???Instructions ???Recorded ???Last Taken ???Type coenzyme Q10 50 mg capsule (Co 100 mg PO DAILY vitamin 03/04/18 1 03/19/23 History Q-10) cholecalciferol (vitamin D3) 50 4,000 unit PO DAILY vitamin 01/17/24 History mcg (2,000 unit) capsule aspirin 81 mg tablet,delayed 81 mg PO DAILY 05/05/23 01/17/24 H istory release (Adult Low Dose Aspirin) Held on 01/19/24. Instructions: Resume on 01/21/24. magnesium 250 mg tablet 500 mg PO DAILY 05/05/23 01/14/24 History rosuvastatin 10 mg tablet 10 mg PO QDAY #90 tabs 11/10/23 Rx clopidogrel 75 mg tablet (Plavix) 75 mg PO DAILY 01/04/24 01/11/24 History Held on 01/19/24. Instructions: Resume on 01/21/24. multivitamin 1 tab PO DAILY 01/04/24 01/18/24 H istory sennosides 8.6 mg-docusate sodium 2 tab PO BID PRN constipation #30 01/19/24 Unknown Rx 50 mg tablet (Stimulant Laxative tabs Plus) hydrocodone-acetamino phen 5-325mg 1 tab PO Q6H PRN PRN Pain 3 days 04/25/24 Unknown Rx 5mg-325mg #12 TABLETS Allergy/AdvReac Type Severity Reaction Status Date / Time clindamycin Allergy Intermediate Abd Verified 04/25/24 10:35 cramps/diarrhea cat dander (cats) AdvReac PT UNSURE Verified 04/25/24 10:35 OF REACTION codeine AdvReac Upset Verified 04/25/24 10:35 Stomach Family History Father CAD (coronary artery disease) Myocardial infarction, Onset Age: 45 Mother Carotid artery stenosis Surgical History History of coronary artery stent placement Presence of coronary angioplasty implant and graft ( 12/22/16) History of tonsillectomy History of transurethral resection of prostate ( 09/2016) S/P CABG (coronary artery bypass graft) ( 09/16/98) S/P PTCA (percutaneous transluminal coronary angioplasty) ( 12/22/16) Social History Smoking Status: Former smoker how long ago did patient quit smokin alcohol intake: current details: occasional ROS ROS ED ROS Narrative Constitutional: Negative for fever, chills, malaise. CVS: Negative for chest pain. Respiratory: Negative for shortness of breath, cough. GI: Positive for abdominal pain. Negative for nausea, vomiting, diarrhea, constipation, melena, hematochezia. : Negative for dysuria, hematuria. EXAM Physical Exam Narrative Exam Narrative: CONST: Patient sitting in no acute distress. EYES: Normal inspection. NECK: Normal inspection. RESP: No respiratory distress, CTAB. CVS: Regular rate and rhythm, no murmur, no gallop. ABD: Right lower abdominal ostomy bag with light brown stool. Healthy pink appearing stoma. Abdomen is soft and tender (more content not included)... Normal [facility] Eosinophil percentageOrdered By: Tejal Bassett on 04-25-2024 Eosinophils/100 WBC (Bld) 3.3 % 0-5 [facility] Erythrocyte distribution wid th ratioOrdered By: Tejal Bassett on 04-25-2024 Erythrocyte distribution width (RBC) [Ratio] 13.3 % 11.6-14.6 [facility] Erythrocyte distribution wid th standard deviationOrdered By: Tejal Bassett on 04-25-2024 Erythrocyte distribution width (RBC) [Ratio] 47.1 fl High 35.1-43.9 [facility] Glomerular filtration rate ( GFR) estimation/1.73 sq m using serum, plasma, or whole bOrdered By: Tejal Bassett on 04-25-2024 GFR/1.73 sq M.predicted among non-blacks MDRD (S/P/Bld) [Vol rate/Area] 70 mL/min/{1.73_m2} >60 [facility] Comment on above: mL/min/1.73m2 CKD-EP I Creatinine Equation (2020)Previous reported result: 76 Edited by: RASHIDA on 04/25/24:1504 AMENDED REPORT 04/25/241503 EST GFR previously reported as: 76 mL/min/1.73m2 CKD-EPI Creatinine Equation (2020) Hematocrit Auto (Bld) [Volum e fraction]Ordered By: Tejal Bassett on 04-25-2024 Hematocrit (Bld) [Volume fraction] 42.9 % 40-54 [facility] Hemoglobin measurementOrdere d By: Tejal Bassett on 04-25-2024 Hemoglobin (Bld) [Mass/Vol] 14.0 g/dL 13.0-16.5 [facility] Immature granulocytes/100 WB C Auto (Bld)Ordered By: Tejal Bassett on 04-25-2024 Immature granulocytes/100 WBC (Bld) 0.800 % 0.0-0.9 [facility] Comment on above: IG% - Immature Granu locytes (promyelocytes, myelocytes and metamyelocytes) > 1% indicates that a LEFT SHIFT is Present. Ketones Test strip Ql (U)Ord ered By: Tejal Bassett on 04-25-2024 Ketones Ql (U) Negative Negative [facility] Laboratory - Chemistry and C hemistry - challengeOrdered By: Tejal Bassett on 04-25-2024 AST [Catalytic activity/Vol] 40 U/L High <38 [facility] Comment on above: Previous reported re sult: 38 U/LEdited by: RASHIDA on 04/25/24:1504 AMENDED REPORT 04/25/241503 AST previously reported as: 38 U/L MCV (mean corpuscular volume ) determinationOrdered By: Tejal Bassett on 04-25-2024 MCV (RBC) [Entitic vol] 95.1 fL High 80-94 [facility] Mean corpuscular hemoglobin (MCH) determinationOrdered By: Tejal Bassett on 04-25-2024 MCH (RBC) [Entitic mass] 31.0 pg 27.0-32.0 [facility] Mean corpuscular hemoglobin concentration (MCHC) determinationOrdered By: Tejal Bassett on 04-25-2024 MCHC (RBC) [Mass/Vol] 32.6 g/dL 32-36 [facility] Mean platelet volume determi nationOrdered By: Tejal Bassett on 04-25-2024 Platelet mean volume (Bld) [Entitic vol] 9.8 fL 6.2-12.0 [facility] Microscopic analysis of urin e for red blood cells (RBC)Ordered By: Tejal Bassett on 04-25-2024 Microscopic analysis of urine for red blood cells (RBC) 25-50 SEEN /hpf 0-5 [facility] Monocyte percentageOrdered B y: Tejal Bassett on 04-25-2024 Monocytes/100 WBC (Bld) 17.6 % High 0-10 [facility] Mucus LM Ql (Urine sed)Order ed By: Tejal Bassett on 04-25-2024 Mucus Ql (Urine sed) 0 SEEN /hpf [facility] Neutrophil percentageOrdered By: Tejal Bassett on 04-25-2024 Neutrophils/100 WBC (Bld) 49.0 % 47-70 [facility] Nitrite Test strip Ql (U)Ord ered By: Tejal Bassett on 04-25-2024 Nitrite Ql (U) Negative Negative [facility] Nucleated red blood cell per centageOrdered By: Tejal Bassett on 04-25-2024 Nucleated RBC/100 WBC (Bld) [Ratio] 0 % 0-5 [facility] Platelet countOrdered By: Carey Bassett on 04-25-2024 Platelets (Bld) [#/Vol] 320 10*3/uL 150-450 [facility] Potassium measurementOrdered By: eTjal Bassett on 04-25-2024 Potassium [Moles/Vol] 4.0 mmol/L 3.5-5.1 [facility] Protein Test strip Ql (U)Ord ered By: Tejal Bassett on 04-25-2024 Protein Ql (U) 30 mg/dl High Negative [facility] RBC Auto (Bld) [#/Vol]Ordere d By: Tejal Bassett on 04-25-2024 RBC (Bld) [#/Vol] 4.51 10*6/uL Low 4.6-6.2 [facility] Serum anion gap measurementO rdered By: Tejal Bassett on 04-25-2024 Anion gap [Moles/Vol] 15 mmol/L 5-15 [facility] Serum globulin measurementOr dered By: Tejal Bassett on 04-25-2024 Globulin (S) [Mass/Vol] 3.2 g/dL 2.2-4.2 [facility] Comment on above: Previous reported re sult: 3.3 g/dLEdited by: RASHIDA on 04/25/24:1504 AMENDED REPORT 04/25/24 1504 GLOB previously reported as: 3.3 g/dL Serum glucose measurement (m ass/volume)Ordered By: Tejal Bassett on 04-25-2024 Glucose [Mass/Vol] 89 mg/dL 70-99 [facility] Comment on above: Previous reported re sult: 92 mg/dLEdited by: RASHIDA on 04/25/24:1504 AMENDED REPORT 04/25/24 1504 GLU previously reported as: 92 mg/dL Serum or plasma alanine loya otransferase (ALT) measurementOrdered By: Tejal Bassett on 04-25-2024 ALT [Catalytic activity/Vol] 38 U/L <47 [facility] Comment on above: Previous reported re sult: 36 U/LEdited by: RASHIDA on 04/25/24:1504 AMENDED REPORT 04/25/24 1504 ALT previously reported as: 36 U/L Serum or plasma albumin shae urement (mass/volume)Ordered By: Tejal Bassett on 04-25-2024 Albumin [Mass/Vol] 4.1 g/dL 3.4-4.8 [facility] Serum or plasma albumin/glob ulin mass ratioOrdered By: Tejal Bassett on 04-25-2024 Albumin/Globulin [Mass ratio] 1.3 {ratio} 0.9-2.4 [facility] Comment on above: Previous reported re sult: 1.2 RATIOEdited by: AUTOINS on 04/25/24:1227 AMENDED REPORT 04/25/24 122 A/G previously reported as: 1.2 RATIO Serum or plasma alkaline guru sphatase measurementOrdered By: Tejal Bassett on 04-25-2024 ALP [Catalytic activity/Vol] 92 U/L 40-129 [facility] Comment on above: Previous reported re sult: 96 U/LEdited by: BLAIRS on 04/25/24:1504 AMENDED REPORT 04/25/24 150 ALK P previously reported as: 96 U/L Serum or plasma calcium shae urement (mass/volume)Ordered By: Tejal Bassett on 04-25-2024 Calcium [Mass/Vol] 9.1 mg/dL 7.6-11.0 [facility] Serum or plasma carbon dioxi de measurement (moles/volume)Ordered By: Tejal Bassett on 04-25-2024 CO2 [Moles/Vol] 19.0 mmol/L Low 21.0-32.0 [facility] Serum or plasma chloride orville surement (moles/volume)Ordered By: Tejal Bassett on 04-25-2024 Chloride [Moles/Vol] 106 mmol/L 98-107 [facility] Serum or plasma creatinine m easurement (moles/volume)Ordered By: Tejal Bassett on 04-25-2024 Creatinine [Moles/Vol] 1.1 mg/dL 0.8-1.3 [facility] Comment on above: Previous reported re sult: 1.0 mg/dLEdited by: AUTOINS on 04/25/24:1504 AMENDED REPORT 04/25/24 1504 CREAT,SERUM previously reported as: 1.0 mg/dL Serum or plasma urea nitroge n measurement (mass/volume)Ordered By: Tejal Bassett on 04-25-2024 Urea nitrogen [Mass/Vol] 18 mg/dL 4-19 [facility] Comment on above: Previous reported re sult: 19 mg/dLEdited by: AUTOINS on 04/25/24:1504 AMENDED REPORT 04/25/24 1504 BUN previously reported as: 19 mg/dL Sodium levelOrdered By: Tejal Bassett on 04-25-2024 Sodium [Moles/Vol] 140 mmol/L 136-145 [facility] Squamous epithelial cells de tection in urine sediment by light microscopyOrdered By: Tejal Bassett on 04-25-2024 Epithelial cells.squamous LM Ql (Urine sed) 0-5 SEEN /hpf 0-5 [facility] Total proteinOrdered By: Mary Ellen Bassett on 04-25-2024 Protein [Mass/Vol] 7.3 g/dL 5.9-8.4 [facility] Comment on above: Previous reported re sult: 7.4 g/dLEdited by: RASHIDA on 04/25/24:1504 AMENDED REPORT 04/25/241503 T PROT previously reported as: 7.4 g/dL Urinalysis, Completeon 04-25 EPI,SQUAMOUS 0-5 SEEN Normal 0-5 [facility] Comment on above: Order Comment: KEITH TER SPECIMEN Performed By: #### L 400.0001 #### [facility] [address] [place], [address] RBC 25-50 SEEN Normal [address] [place] [address] Comment on above: Order Comment: KEITH TER SPECIMEN Performed By: #### L 400.0001 #### [facility] [address] [place], [address] BACTERIA 0 SEEN Normal None Seen [facility] Comment on above: Order Comment: KEITH TER SPECIMEN Performed By: #### L 400.0001 #### [facility] [address] [place], [address] Mucus Ql (Urine sed) 0 SEEN Normal [facility] Comment on above: Order Comment: KEITH TER SPECIMEN Performed By: #### L 400.0001 #### [facility] [address] [place], [address] WBC 0 SEEN Normal 0-5 [facility] Comment on above: Order Comment: KEITH TER SPECIMEN Performed By: #### L 400.0001 #### [facility] [place], [address] Urine clarityOrdered By: Mary Ellen Bassett on 04-25-2024 Clarity (U) Sl. Cloudy Clear [facility] Urine color determinationOrd ered By: Tejal Bassett on 04-25-2024 Color (U) Yellow Yellow [facility] Urine cultureOrdered By: Mary Ellen Bassett on 04-25-2024 Bacteria identified Cx Nom (U) Positive Abnormal [facility] Urine glucose detectionOrder ed By: Tejal Bassett on 04-25-2024 Glucose Ql (U) Normal mg/dl Normal [facility] Urine leukocyte esterase det ection by dipstickOrdered By: Tejal Bsasett on 04-25-2024 Leukocyte esterase Test strip Ql (U) Negative Negative [facility] Urine pHOrdered By: Tejal marsh on 04-25-2024 pH (U) 5.0 [pH] 5.0 - 8.0 [facility] Urine sediment bacteria coun t by microscopy (number/high power field)Ordered By: Tejal Bassett on 04-25-2024 Bacteria LM.HPF (Urine sed) [#/Area] 0 /[HPF] None Seen [facility] Urine specific gravity measu rementOrdered By: Tejal Bassett on 04-25-2024 Specific gravity (U) [Rel density] 1.025 1.002-1.030 [facility] Urine urobilinogen measureme ntOrdered By: Tejal Bassett on 04-25-2024 Urobilinogen Ql (U) Normal mg/dl Normal [facility] White blood cell (WBC) count Ordered By: Tejal Bassett on 04-25-2024 WBC (Bld) [#/Vol] 6.6 10*3/uL 4.4-11.0 [facility] White blood cell countOrdere d By: Tejal Bassett on 04-25-2024 White blood cell count 0 SEEN /hpf 0-5 [facility] Cerv Spine 2 or 3 Viewson Cerv Spine 2 or 3 Views [facility] Imaging Services [address] [place], [place] [id number] Cerv Spine 2 or 3 Views MR#: [id number] Acct: [id number] Name: JAI LUNA Rep #: [id number] : 1950 M 74 From: Toro Sanford PCP: Dr. Katy Faust MD Status: DEP AMB Study: Cerv Spine 2 or 3 Views Date of Exam: 04/21/24 Exam# [id number] Ordering Dr: Zaira De Jesus PROCEDURE: Cervical spine radiographs REASON FOR EXAM: Pain TECHNIQUE: 2 views of the cervical spine. COMPARISON: 03/02/2024 FINDINGS: See impression RAD/Cerv Spine 2 or 3 Views IMPRESSION: Intact anterior fusion hardware from C5-7. Mild/moderate disc space narrowing from C3 through C5. Straightening of the normal lordosis. No significant scoliosis. Moderate multilevel facet and uncovertebral arthrosis. Bilateral carotid artery calcifications. No prevertebral soft tissue swelling. Reading Location: [facility] CC: JANICE Barakat; Dr. Katy Faust MD [employer] Artificer Helper: Signed Normal [facility] Orthopedic Visit Reporton Orthopedic Visit Report [facility] [address] [place] [id number] OFFICE VISIT Date of Service: 04/21/24 MR#: [id number] Acct: [id number] Name: JAI LUNA Rep #: [id number] : 1950 Provider: Dr. Howard Siddiqui MD Age/Sex: 74/M Location: [facility] Status: Signed Intake Vital Signs 01/18/24 05:58 Height 5 ft 6 in Intake Visit Reasons: CERVICAL SPINE Chief Complaint: 90 day post op Allergies clindamycin Allergy (Intermediate, Verified 04/21/24 12:29) Abd cramps/diarrhea cat dander (cats) Adverse Reaction (Verified 04/21/24 12:29) PT UNSURE OF REACTION codeine Adverse Reaction (Verified 04/21/24 12:29) Upset Stomach Medications ???Medication ???Instructions ???Recorded ???Confirmed ???Type coenzyme Q10 50 mg capsule (Co 100 mg PO DAILY vitamin 03/04/18 0 04/21/24 History Q-10) cholecalciferol (vitamin D3) 50 4,000 unit PO DAILY vitamin 04/21/24 History mcg (2,000 unit) capsule aspirin 81 mg tablet,delayed 81 mg PO DAILY 05/05/23 04/21/24 H istory release (Adult Low Dose Aspirin) Held on 01/19/24. Instructions: Resume on 01/21/24. magnesium 250 mg tablet 500 mg PO DAILY 05/05/23 04/21/24 History rosuvastatin 10 mg tablet 10 mg PO QDAY #90 tabs 11/10/23 Rx clopidogrel 75 mg tablet (Plavix) 75 mg PO DAILY 01/04/24 04/21/24 History Held on 01/19/24. Instructions: Resume on 01/21/24. multivitamin 1 tab PO DAILY 01/04/24 04/21/24 H istory sennosides 8.6 mg-docusate sodium 2 tab PO BID PRN constipation #30 01/19/24 04/21/24 Rx 50 mg tablet (Stimulant Laxative tabs Plus) Have you fallen in the past year?: No PFSH Medical History MRSA (methicillin resistant staph aureus) culture positive Deaf Wears hearing aid Wears glasses Cancer High cholesterol DVT (deep venous thrombosis) Injury of head and neck Loss of consciousness Gastric reflux Former smoker History of edema History of echocardiogram History of stress test Cardiology follow-up encounter Pulmonary embolism Gastric artery aneurysm Ileostomy present Rectal cancer Intra abdominal hemorrhage Dilated aortic root 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 Subclavian artery stenosis, left GERD (gastroesophageal reflux disease) Meniere's disease Bilateral carotid artery stenosis Old myocardial infarction Premature ventricular contraction Peripheral vascular disease Presence of stent in coronary artery ( 12/22/16) Essential hypertension 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 Hypoacusis Dyslipidemia HTN (hypertension) CAD (coronary artery disease) Surgical History History of coronary artery stent placement Presence of coronary angioplasty implant and graft ( 12/22/16) History of tonsillectomy History of transurethral resection of prostate ( 09/2016) S/P CABG (coronary artery bypass graft) ( 09/16/98) S/P PTCA (percutaneous transluminal coronary angioplasty) ( 12/22/16) Family History Father CAD (coronary artery disease) Myocardial infarction, Onset Age: 45 Mother Carotid artery stenosis Social History Smoking Status: Former smoker how long ago did patient quit smokin alcohol intake: current details: occasional HPI CERVICAL SPINE Details: This documentation accurately reflects the service provided and the decisions made by me, Dr. Howard Siddiqui MD 04/21/24 2733. Part of today???s visit was documented by Izzy Castro RN, acting as scribe. JAI LUNA is a 74 year old M here today for s/p C5-7 anterior cervical discectomy and fusion DOS 01/18/2024. He reports healing has been going well. He denies any pain. He does complain of ongoing weakness in his left arm that has not gotten any better. He also reports weakness in his BLE. Continues to have significant low back pain and bilateral lower extremity radiation along with difficulty walking distances due to weakness in both lower extremities after a while. He is able to walk about 100 yards after which she has to find a place to sit down. Ortho Exam General General: Yes no acute distress Neurologic: Yes alert and Yes oriented x3 Spine SPINE TESTING CERVICAL THORACIC LUMBAR Musculoskeletal Strength 0=absent - 5=normal Details: Physical examination of the neck shows a well healed surgical incision. Neurological exam of the upper extremities shows 5x5 power. Normal sensations across all dermatomes. Lower extremity shows 5 x 5 power normal shows normal sensations in all dermatomes. Coding Level of Care (more content not included)... Normal [facility] MR IAC W AND WO IV CONTRASTo n 03-27-2024 MR IAC W AND WO IV CONTRAST Interpreted By: Donato John, STUDY: MR IAC W AND WO IV CONTRAST; 03/27/2024 1:40 pm INDICATION: Signs/Symptoms:Yearly vestibular schwannoma surveillance. 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) COMPARISON: March 2023 ACCESSION NUMBER(S): [id number] ORDERING CLINICIAN: GISELA CAN TECHNIQUE: The brain was studied in the sagittal, axial and coronal planes utilizing FLAIR, T1 and T2 weighted images. Following intravenous injection of gadolinium contrast, T1 weighted fat suppressed multiplanar images were also performed. FINDINGS: There is moderate enlargement of the ventricular system unchanged from the previous exam. There are scattered foci of increased signal in the subcortical and periventricular white matter best appreciated on FLAIR images. These likely represent foci of demyelination of uncertain cause and significance and may be physiologic at this patient's stated age. . The skull base, paranasal sinuses and orbital structures are unremarkable. Diffusion weighted images and associated ADC maps of the brain were unremarkable. There is no evidence of diffusion restriction to suggest the presence of acute infarction. Gradient echo T2 weighted images fail to demonstrate hemosiderin deposition or other evidence of hemorrhage. Following contrast injection, there is redemonstration of a vestibular schwannoma in the left internal auditory canal with extension into the left cerebellopontine angle cistern. There is no evidence of extension to the cochlear or vestibule. The mass continues to measure a proximally 1.3 cm by a proximally 1 cm in size including the cisternal component which measures 8.5 mm x 5 mm. There is no measurable mass effect upon the adjacent brainstem. The right temporal bone including the labyrinth and internal auditory canal are normal. There is normal contrast opacification of the dural venous sinuses IMPRESSION: * Left-sided vestibular schwannoma is not measurably changed compared to the previous exam *Mild ventricular dilatation and patchy abnormal white matter signal also unchanged from the previous exam. MACRO: none Signed by: Donato John 03/27/2024 2:22 PM Dictation workstation: [id number] [facility] MR Internal auditory canal W O and W contrast Lui 03-27-2024 * Left-sided vestibular schwannoma is not measurably changed compared to the previous exam *Mild ventricular dilatation and patchy abnormal white matter signal also unchanged from the previous exam. MACRO: none Signed by: Donato John 03/27/2024 2:22 PM Dictation workstation: [id number] Interpreted By: Donato John, STUDY: MR IAC W AND WO IV CONTRAST; 03/27/2024 1:40 pm INDICATION: Signs/Symptoms:Yearly vestibular schwannoma surveillance. 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) COMPARISON: March 2023 ACCESSION NUMBER(S): [id number] ORDERING CLINICIAN: GISELA CAN TECHNIQUE: The brain was studied in the sagittal, axial and coronal planes utilizing FLAIR, T1 and T2 weighted images. Following intravenous injection of gadolinium contrast, T1 weighted fat suppressed multiplanar images were also performed. FINDINGS: There is moderate enlargement of the ventricular system unchanged from the previous exam. There are scattered foci of increased signal in the subcortical and periventricular white matter best appreciated on FLAIR images. These likely represent foci of demyelination of uncertain cause and significance and may be physiologic at this patient's stated age. . The skull base, paranasal sinuses and orbital structures are unremarkable. Diffusion weighted images and associated ADC maps of the brain were unremarkable. There is no evidence of diffusion restriction to suggest the presence of acute infarction. Gradient echo T2 weighted images fail to demonstrate hemosiderin deposition or other evidence of hemorrhage. Following contrast injection, there is redemonstration of a vestibular schwannoma in the left internal auditory canal with extension into the left cerebellopontine angle cistern. There is no evidence of extension to the cochlear or vestibule. The mass continues to measure a proximally 1.3 cm by a proximally 1 cm in size including the cisternal component which measures 8.5 mm x 5 mm. There is no measurable mass effect upon the adjacent brainstem. The right temporal bone including the labyrinth and internal auditory canal are normal. There is normal contrast opacification of the dural venous sinuses [facility] MMODAL Donato John MD - 03/27/2024 Interpreted By: Donato John, STUDY: MR IAC W AND WO IV CONTRAST; 03/27/2024 1:40 pm INDICATION: Signs/Symptoms:Yearly vestibular schwannoma surveillance. 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) COMPARISON: March 2023 ACCESSION NUMBER(S): [id number] ORDERING CLINICIAN: GISELA CAN TECHNIQUE: The brain was studied in the sagittal, axial and coronal planes utilizing FLAIR, T1 and T2 weighted images. Following intravenous injection of gadolinium contrast, T1 weighted fat suppressed multiplanar images were also performed. FINDINGS: There is moderate enlargement of the ventricular system unchanged from the previous exam. There are scattered foci of increased signal in the subcortical and periventricular white matter best appreciated on FLAIR images. These likely represent foci of demyelination of uncertain cause and significance and may be physiologic at this patient's stated age. . The skull base, paranasal sinuses and orbital structures are unremarkable. Diffusion weighted images and associated ADC maps of the brain were unremarkable. There is no evidence of diffusion restriction to suggest the presence of acute infarction. Gradient echo T2 weighted images fail to demonstrate hemosiderin deposition or other evidence of hemorrhage. Following contrast injection, there is redemonstration of a vestibular schwannoma in the left internal auditory canal with extension into the left cerebellopontine angle cistern. There is no evidence of extension to the cochlear or vestibule. The mass continues to measure a proximally 1.3 cm by a proximally 1 cm in size including the cisternal component which measures 8.5 mm x 5 mm. There is no measurable mass effect upon the adjacent brainstem. The right temporal bone including the labyrinth and internal auditory canal are normal. There is normal contrast opacification of the dural venous sinuses IMPRESSION: * Left-sided vestibular schwannoma is not measurably changed compared to the previous exam *Mild ventricular dilatation and patchy abnormal white matter signal also unchanged from the previous exam. MACRO: none Signed by: Donato John 03/27/2024 2:22 PM Dictation workstation: [id number] [facility] Work Phone: Radiology Study observation (narrative) [facility] Work Phone: MR Internal auditory canal W O and W contrast IVOrdered By: Donato John on 03-27-2024 [facility] Work Phone: Cerv Spine 2 or 3 Viewson Cerv Spine 2 or 3 Views [facility] [address] [place] [address] Cerv Spine 2 or 3 Views MR#: [id number] Acct: [id number] Name: JAI LUNA Rep #: [id number] : 1950 M 74 From: Reji Godoy MD PCP: Dr. Katy Faust MD Status: DEP AMB Study: Cerv Spine 2 or 3 Views Date of Exam: 03/02/24 Exam# [id number] Ordering Dr: Zaira De Jesus [id number] EXAM: XR CERVICAL SPINE, 2 OR 3 VIEWS CLINICAL INDICATION: s/p fusion -- please do upright AP and LAT TECHNIQUE: Frontal and lateral views of the cervical spine. COMPARISON: 02/03/2024 FINDINGS: VERTEBRAE: There is hardware from an anterior fusion from C5 through C7. Interbody spacers are also present. Preserved vertebral body height. No acute fracture. No spondylolisthesis. Preservation of the normal cervical lordosis. No significant facet arthropathy. DISC SPACES: Unremarkable. Disc spaces are maintained. SOFT TISSUES: Unremarkable. No prevertebral soft tissue widening. LUNG APICES: Clear. RAD/Cerv Spine 2 or 3 Views IMPRESSION: No acute abnormalities in the cervical spine. There has been no change from the reference exam. Hardware from anterior fusion is in stable position. Electronically Signed: Reji Godoy MD at 16:58 EST , CC: JANICE Barakat; Dr. Katy Faust MD [employer]dn[employer] Artificer Helper: Signed Normal [facility] Orthopedic Visit Reporton Orthopedic Visit Report [facility] [address] [place] [address] [place] [address] OFFICE VISIT Date of Service: 03/02/24 MR#: [id number] Acct: [id number] Name: JAI LUNA Rep #: [id number] : 1950 Provider: JANICE Barakat Age/Sex: 74/M Location: [facility] Status: Signed with Addenda ADDENDUM by JANICE Barakat on 03/06/24 at 1414 Assessment and Plan Assessment and Plan (1) Status post cervical spinal fusion: Status: Acute Orders: Orders Cerv Spine 2 or 3 Views 03/02/24 Z98.1 - Arthrodesis status Plan 03/06/24: Patient left message for increased lumbar back pain and leg pain. Called patient and discussed with him these issues. Says he has bilateral lumbar pain. Recommended a referral to pain management for injections and sent in a methocarbamol refill. He follows up in 6 weeks, patient potentially looking to discuss lumbar surgical options at that time. 03/06/24 1414 Date Zaira De Jesus cc: Dr. Katy Faust MD * Signed Intake Vital Signs 11/10/23 10:35 01/18/24 05:58 Height 5 ft 6 in 5 ft 6 in Intake Visit Reasons: cervical spine Chief Complaint: 6 week post-op Accompanied by: Self Is patient in pain?: No Allergies clindamycin Allergy (Intermediate, Verified 03/02/24 08:13) Abd cramps/diarrhea cat dander (cats) Adverse Reaction (Verified 03/02/24 08:13) PT UNSURE OF REACTION codeine Adverse Reaction (Verified 03/02/24 08:13) Upset Stomach Medications ???Medication ???Instructions ???Recorded ???Confirmed ???Type coenzyme Q10 50 mg capsule (Co 100 mg PO DAILY vitamin 03/04/18 03/02/24 History Q-10) cholecalciferol (vitamin D3) 50 4,000 unit PO DAILY vitamin 07/21/19 03/02/24 History mcg (2,000 unit) capsule aspirin 81 mg tablet,delayed 81 mg PO DAILY 05/05/23 03/02/24 History release (Adult Low Dose Aspirin) magnesium 250 mg tablet 500 mg PO DAILY 05/05/23 03/02/24 History rosuvastatin 10 mg tablet 10 mg PO QDAY #90 tabs 11/10/23 03/02/24 Rx clopidogrel 75 mg tablet (Plavix) 75 mg PO DAILY 01/04/24 03/02/24 History multivitamin 1 tab PO DAILY 01/04/24 03/02/24 History sennosides 8.6 mg-docusate sodium 2 tab PO BID PRN constipation #30 01/19/24 03/02/24 Rx 50 mg tablet (Stimulant Laxative tabs Plus) Have you fallen in the past year?: No PFSH Medical History MRSA (methicillin resistant staph aureus) culture positive Deaf Wears hearing aid Wears glasses Cancer High cholesterol DVT (deep venous thrombosis) Injury of head and neck Loss of consciousness Gastric reflux Former smoker History of edema History of echocardiogram History of stress test Cardiology follow-up encounter Pulmonary embolism Gastric artery aneurysm Ileostomy present Rectal cancer Intra abdominal hemorrhage Dilated aortic root 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 Subclavian artery stenosis, left GERD (gastroesophageal reflux disease) Meniere's disease Bilateral carotid artery stenosis Old myocardial infarction Premature ventricular contraction Peripheral vascular disease Presence of stent in coronary artery ( 12/22/16) Essential hypertension 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 Hypoacusis Dyslipidemia HTN (hypertension) CAD (coronary artery disease) Surgical History History of coronary artery stent placement Presence of coronary angioplasty implant and graft ( 12/22/16) History of tonsillectomy History of transurethral resection of prostate ( 09/2016) S/P CABG (coronary artery bypass graft) ( 09/16/98) S/P PTCA (percutaneous transluminal coronary angioplasty) ( 12/22/16) Family History Father CAD (coronary artery disease) Myocardial infarction, Onset Age: 45 Mother Carotid artery stenosis Social History Smoking Status: Former smoker how long ago did patient quit smokin alcohol intake: current details: occasional HPI cervical spine Details: This documentation accurately reflects the service provided and the decisions made by me, JANICE Barakat 03/02/24 0808. Part of today???s visit was documented by Mercedes Edgar ATC, acting as scribe. JAI LUNA is a 74 year old M here today for s/p C5-7 anterior cervical discectomy and fusion DOS 01/18/2024. Patient states he does not have any pain in the cervical spine today but he does have some behind his left shoulder. Patient states this has always been there it just has not gone away. Patient describes this pain as a dull achy pain and never severe. Ortho Ex (more content not included)... Normal [facility] Upper Extremity Arterial Diogo dyon 02-25-2024 Upper Extremity Arterial Study [facility] [place] [address] Upper Extremity Arterial Study 02/25/24 1258 MR#: [id number] Acct: [id number] Name: JAI LUNA Rep #: [id number] : 1950 74 From: Raghu Reynolds MD Attending Dr: JANICE Bocanegra Status: REG CLI Ordering Dr: Naty Amato Date: 02/25/24 Location: [facility] Sex: M C Admitted: Reason For Study: S/P Lt SUB A Stent Procedure A bilateral upper extremity continuous wave Doppler with analog waveform analysis and segmental pressures. Left Segmental Pressures Left brachial= 145mmHg. Left ulnar= 172mmHg. Left radial= 166mmHg. Left digit = 146 mmHg. The left radial waveforms are triphasic. The left ulnar waveforms are triphasic. Right Segmental Pressures Right brachial= 141mmHg. Right ulnar= 164mmHg. Right radial= 189mmHg. Right digit = 147 mmHg. The right radial waveforms are triphasic. The right ulnar waveforms are triphasic. Indices Rt WBI by the Ulnar A, 1.13. Rt WBI by the Radial A, 1.30. The right digital-brachial index is 1.01. Lt WBI by the Ulnar A, 1.19. Lt WBI by the Radial A, 1.14. The left digital-brachial index is 1.01. VL/Upper Extremity Arterial Study Interpretation Summary Right wrist-brachial index 1.3, normal. Digit index and Doppler/PVR waveforms of the arm leg normal at rest. Left wrist-brachial index 1.19, normal. Digit index and Doppler/PVR waveforms of the left arm normal at rest. Ordering Physician: Naty Amato Referring Physician: Katy Faust M.D. Performed By: Isaura Faria RVT and Student 02/28/2455 Date Raghu Reynolds MD CC: JANICE Bocanegra; Dr. Katy Faust MD Date Dictated: 02/25/24 1258 Date Transcribed: 02/28/24954 Ordnance Artificer Helper: Signed [facility] 02-14-2024 [facility] Telephone (INTMWS) JAI LUNA ([id number]) 1950 M Date Time Provider Department 02/14/24 KATY FAUST INTWS During your visit today, we recorded the following information about you: ClaudiacornelioGinger lynnSANDRA 02/14/2024 9:44 AM Signed Patient calling his had been having severe flank pain both sides. Rates his pain at a 10 when he lays down. No history of kidney stones. He has history of colon cancer and says has blood in stool all the time, has ileostomy. He said has no problems urinating. He said he had neck fusion surgery in December [address] Siddiqui [facility]. Advised patient to go to [facility] ER for evaluation. He said has no ride until his comes home, has one car. Patient said he would go to ER after comes home. Katy Faust MD 02/14/2024 7:55 PM Signed Noted. Katy Faust MD Allergies As of Date: 02/14/2024 Noted Allergy Reaction CAT CHELSEA 02/27/2022 14 - Other: See Comments CLINDAMYCIN 03/28/2021 8 - GI Upset CODEINE 06/20/2007 8 - GI Upset Date Reviewed: 01/04/2024 Reviewed by: Norm Parker APRN.SECURITY SYSTEM INSTALLER - Fully Assessed Reason for Visit: Patient Update [1234] Prescriptions as of 02/14/2024 - rosuvastatin (CRESTOR) 10 mg tablet Take 1 tablet by mouth once daily. - Miscellaneous Medical Supply Increase monthly supply of ostomy pouches to 12 per month(8 per month not adequate) - clopidogrel (PLAVIX) 75 mg tablet Take 75 mg by mouth. - multivitamin tablet Take 1 tablet by mouth once daily. - aspirin, enteric coated (ADULT LOW DOSE ASPIRIN) 81 mg EC tablet Take 1 tablet by mouth once daily. - coenzyme Q10 (COENZYME Q-10) 100 mg cap capsule Take 100 mg by mouth once daily. - Cholecalciferol, Vitamin D3, 50 mcg (2,000 unit) cap Take 1 capsule by mouth two times a week. 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] 04/30/2021 Atherosclerosis of coronary artery bypass graft*01/18/2013 Bilateral carotid artery stenosis [I65.23] 04/30/2021 Cervical radiculopathy [M54.12] 04/30/2021 Dyslipidemia [E78.5] 01/16/2013 Essential hypertension [I10] 04/30/2021 04/06/2022 Hearing loss [H91.90] 04/30/2021 History of cardiac catheterization [Z98.890] 04/30/2021 History of myocardial infarction [I25.2] 08/29/1998 Status post coronary artery bypass graft [Z95.1]04/30/2021 Rectal malignant neoplasm (HCC) [C20] 05/29/2021 Obesity, Class I, BMI 30-34.9 [E66.811] 01/26/2022 04/06/2022 Rectal cancer (HCC) [C20] 01/27/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) [Z93.2] 01/28/2022 Postoperative pain [G89.18] 01/28/2022 02/24/2022 Intraabdominal hemorrhage [R58] 02/01/2022 02/24/2022 Respiratory insufficiency [R06.89] 02/01/2022 02/10/2022 FINESSE (acute kidney injury) (HCC) [N17.9] 02/03/2022 07/07/2022 Class: Acute Malnutrition of mild degree (HCC) [E44.1] 02/05/2022 05/22/2022 Obesity, Class II, BMI 35-39.9 [E66.812] 02/05/2022 04/06/2022 Urinary retention [R33.9] 2022 Hypophosphataemia [E83.39] 2022 02/24/2022 Hypokalemia [E87.6] 02/10/2022 Pulmonary embolism (HCC) [I26.99] 02/13/2022 Inadequate pain control [R52] 02/16/2022 02/18/2022 Pulmonary embolism and infarction (HCC) [I26.99]03/02/2022 Pre-op evaluation [Z01.818] 05/18/2022 07/07/2022 Acute deep vein thrombosis (DVT) of proximal ve*07/21/2022 History of pulmonary embolism [Z86.711] 09/22/2023 PVD (peripheral vascular disease) (HCC) [I73.9] 09/22/2023 History of DVT (deep vein thrombosis) [Z86.718] 09/22/2023 Encounter Status:Closed by KATY FAUST on 02/14/24 Normal [facility] Cerv Spine 2 or 3 Viewson Cerv Spine 2 or 3 Views [facility] [address] [place] [address] Cerv Spine 2 or 3 Views MR#: [id number] Acct: [id number] Name: JAI LUNA Rep #: [id number] : 1950 M 73 From: Jose Mars MD PCP: Dr. Katy Faust MD Status: DEP AMB Study: Cerv Spine 2 or 3 Views Date of Exam: 02/03/24 Exam# [id number] Ordering Dr: Zaira De Jesus [id number] STUDY: X-RAY - CERVICAL SPINE REASON FOR EXAM: Male, 73 years old. Postop follow-up TECHNIQUE: 2 view(s) of the cervical spine were obtained. COMPARISON: 01/19/2024 FINDINGS: Stable appearance of surgical hardware spanning C5-6 and 7. Hardware is intact and free of complication Normal anterior atlantoaxial articulation. Normal odontoid process. There is straightening of the normal cervical lordosis likely positional or due to pain. There is multi-level endplate spondylosis. There is multi-level degenerative disc disease with multilevel disc space narrowing. The soft tissue structures are unremarkable. RAD/Cerv Spine 2 or 3 Views IMPRESSION: Stable postoperative and degenerative changes in the cervical spine, no fracture, hardware complication or significant change since the previous study Electronically Signed: Keanu Mras MD at 15:38 EST Reading Location ID and State: [facility] / [place] , Service support , CC: JANICE Barakat; Dr. Katy Faust MD Ordnance Artificer Helper: Signed Normal [facility] Orthopedic Visit Reporton Orthopedic Visit Report [facility] [address] [place] [address] [address] [place] [address] OFFICE VISIT Date of Service: 02/03/24 MR#: [id number] Acct: [id number] Name: JAI LUNA Rep #: [id number] : 1950 Provider: Dr. Howard Siddiqui MD Age/Sex: 73/M Location: [facility] Status: Signed Intake Vital Signs 11/10/23 10:35 01/18/24 05:58 Height 5 ft 6 in 5 ft 6 in Intake Visit Reasons: cervical spine Chief Complaint: 2 week post-op Is patient in pain?: Yes Pain scale (1-10): 1 Allergies clindamycin Allergy (Intermediate, Verified 02/03/24 09:30) Abd cramps/diarrhea cat dander (cats) Adverse Reaction (Verified 02/03/24 09:30) PT UNSURE OF REACTION codeine Adverse Reaction (Verified 02/03/24 09:30) Upset Stomach Medications ???Medication ???Instructions ???Recorded ???Confirmed ???Type coenzyme Q10 50 mg capsule (Co 100 mg PO DAILY vitamin 03/04/18 02/03/24 History Q-10) cholecalciferol (vitamin D3) 50 4,000 unit PO DAILY vitamin 07/21/19 02/03/24 History mcg (2,000 unit) capsule aspirin 81 mg tablet,delayed 81 mg PO DAILY 05/05/23 02/03/24 History release (Adult Low Dose Aspirin) magnesium 250 mg tablet 500 mg PO DAILY 05/05/23 02/03/24 History rosuvastatin 10 mg tablet 10 mg PO QDAY #90 tabs 11/10/23 02/03/24 Rx clopidogrel 75 mg tablet (Plavix) 75 mg PO DAILY 01/04/24 02/03/24 History multivitamin 1 tab PO DAILY 01/04/24 02/03/24 History hydrocodone-acetamino phen 5-325mg 1 tab PO Q6H 7 days #28 tabs 01/19/24 02/03/24 Rx 5mg-325mg methocarbamol 500 mg tablet 750 mg (1.5 x 500 mg) PO TID PRN 01/19/24 02/03/24 Rx pain/spasms #30 tabs sennosides 8.6 mg-docusate sodium 2 tab PO BID PRN constipation #30 01/19/24 02/03/24 Rx 50 mg tablet (Stimulant Laxative tabs Plus) Have you fallen in the past year?: No PFSH Medical History MRSA (methicillin resistant staph aureus) culture positive Deaf Wears hearing aid Wears glasses Cancer High cholesterol DVT (deep venous thrombosis) Injury of head and neck Loss of consciousness Gastric reflux Former smoker History of edema History of echocardiogram History of stress test Cardiology follow-up encounter Pulmonary embolism Gastric artery aneurysm Ileostomy present Rectal cancer Intra abdominal hemorrhage Dilated aortic root 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 Subclavian artery stenosis, left GERD (gastroesophageal reflux disease) Meniere's disease Bilateral carotid artery stenosis Old myocardial infarction Premature ventricular contraction Peripheral vascular disease Presence of stent in coronary artery ( 12/22/16) Essential hypertension 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 Hypoacusis Dyslipidemia HTN (hypertension) CAD (coronary artery disease) Surgical History History of coronary artery stent placement Presence of coronary angioplasty implant and graft ( 12/22/16) History of tonsillectomy History of transurethral resection of prostate ( 09/2016) S/P CABG (coronary artery bypass graft) ( 09/16/98) S/P PTCA (percutaneous transluminal coronary angioplasty) ( 12/22/16) Family History Father CAD (coronary artery disease) Myocardial infarction, Onset Age: 45 Mother Carotid artery stenosis Social History Smoking Status: Former smoker how long ago did patient quit smokin alcohol intake: current details: occasional HPI cervical spine Details: This documentation accurately reflects the service provided and the decisions made by me, Dr. Howard Siddiqui MD 02/03/2481. Part of today???s visit was documented by Mercedes Edgar ATC, acting as scribe. JAI LUNA is a 73 year old M here today for S/P C5-7 anterior cervical discectomy and fusion 01/18/2024. Patient states he isn't having much pain and he is feeling good. Patient states the incision is healed and he has been showering for about a week now. He does have concerns about the incision healing and seeming pretty thick. Patient states when he still had the bandages on he changed them frequently and cleaned the incision with alcohol as it was leaking a bit. He continues to wear the c-collar and doesn't have any concerns with it. He states he is wearing the electric collar about 4 hours a day. Patient is no longer taking any pain medications. Patient states he had an infected tooth right after the procedure and was put on antibiotics and is continuing to take those. He did have a root canal done since the surgery. Says that he had some dysphagia at first but that has resolved. Ortho Exam (more content not included)... Normal [facility] Basic Metabolic Profile (BMP )on 01-19-2024 BUN/CRE 19.7 RATIO Normal - [facility] Comment on above: Performed By: #### L 500.2500, L100.0500 ####[facility] [address] [place], [address] CA,Total 8.6 mg/dL Normal 8.5-10.1 [facility] Comment on above: Performed By: #### L 500.2500, L100.0500 ####[facility] [address] [place], [address] Chloride [Moles/Vol] 106 mmol/L Normal 98-107 [facility] Comment on above: Performed By: #### L 500.2500, L100.0500 ####[facility] [address] [place], [address] CO2 [Moles/Vol] 23.0 mmol/L Normal 21.0-32.0 [facility] Comment on above: Performed By: #### L 500.2500, L100.0500 ####[facility] [address] [place], [address] Creatinine [Mass/Vol] 1.17 mg/dL Normal 0.70-1.30 [facility] Comment on above: Result Comment: The validity of the calculated GFR GFRAA in patients over 70 years has not been determined. Clinical correlation is essential. Performed By: #### L 500.2500, L100.0500 ####[facility] [address] [place], [address] ECRCL 57.81 ml/min Normal [facility] Comment on above: Performed By: #### L 500.2500, L100.0500 ####[facility] [address] [place], [address] EST GFR - AA 78 mL/min Normal >60 [facility] Comment on above: Result Comment: Afri can Mauritian GFR Calc Performed By: #### L 500.2500, L100.0500 ####[facility] [address] [place], [address] GAP 7 Normal 5-15 [facility] Comment on above: Performed By: #### L 500.2500, L100.0500 ####[facility] [address] [place], [address] GFR/1.73 sq M.predicted among non-blacks MDRD (S/P/Bld) [Vol rate/Area] 65 mL/min/{1.73_m2} Normal >60 [facility] Comment on above: Result Comment: Non- GFR Calc Performed By: #### L 500.2500, L100.0500 ####[facility] [address] [place], [address] Glucose [Mass/Vol] 151 mg/dL High 74-106 [facility] Comment on above: Result Comment: Fast ing Glucose result greater than or equal to 126 mg/dL suggests DIABETES MELLITUS per A.D.A. criteria. Performed By: #### L 500.2500, L100.0500 ####[facility] [address] [place], [address] Potassium [Moles/Vol] 4.0 mmol/L Normal 3.5-5.1 [facility] Comment on above: Performed By: #### L 500.2500, L100.0500 ####[facility] [address] [place], [address] Sodium [Moles/Vol] 136 mmol/L Normal 136-145 [facility] Comment on above: Performed By: #### L 500.2500, L100.0500 ####[facility] [address] [place], [address] Urea nitrogen [Mass/Vol] 23 mg/dL High 7-18 [facility] Comment on above: Performed By: #### L 500.2500, L100.0500 ####[facility] [address] [place], [address] CBC-Complete Blood Cnt No Di ffon 01-19-2024 Erythrocyte distribution width (RBC) [Ratio] 14.2 % Normal 11.6-14.6 [facility] Comment on above: Performed By: #### L 500.2500, L100.0500 ####[facility] [address] [place], [address] Hematocrit (Bld) [Volume fraction] 39.6 % Low 40-54 [facility] Comment on above: Performed By: #### L 500.2500, L100.0500 ####[facility] [address] [place], [address] Hemoglobin (Bld) [Mass/Vol] 12.8 g/dL Low 13.0-16.5 [facility] Comment on above: Performed By: #### L 500.2500, L100.0500 ####[facility] [address] [place], [address] MCH (RBC) [Entitic mass] 30.4 pg Normal 27.0-32.0 [facility] Comment on above: Performed By: #### L 500.2500, L100.0500 ####[facility] [address] [place], [address] MCHC (RBC) [Mass/Vol] 32.3 g/dL Normal 32-36 [facility] Comment on above: Performed By: #### L 500.2500, L100.0500 ####[facility] [address] [place], [address] MCV (RBC) [Entitic vol] 94.1 fL High 80-94 [facility] Comment on above: Performed By: #### L 500.2500, L100.0500 ####[facility] [address] [place], [address] Platelet mean volume (Bld) [Entitic vol] 10.5 fL Normal 6.2-12.0 [facility] Comment on above: Performed By: #### L 500.2500, L100.0500 ####[facility] [address] [place], [address] Platelets (Bld) [#/Vol] 253 10*3/uL Normal 150-450 [facility] Comment on above: Performed By: #### L 500.2500, L100.0500 ####[facility] [address] [place], [address] RBC (Bld) [#/Vol] 4.21 10*6/uL Low 4.6-6.2 [facility] Comment on above: Performed By: #### L 500.2500, L100.0500 ####[facility] [address] [place], [address] RDW SD 48.7 fl High 35.1-43.9 [facility] Comment on above: Performed By: #### L 500.2500, L100.0500 ####[facility] [address] [place], [address] WBC (Bld) [#/Vol] 11.4 10*3/uL High 4.4-11.0 [facility] Comment on above: Performed By: #### L 500.2500, L100.0500 ####[facility] [address] [place], [address] Cerv Spine 2 or 3 Viewson Cerv Spine 2 or 3 Views [facility] Imaging Services [address] [place] [address] Cerv Spine 2 or 3 Views MR#: [id number] Acct: [id number] Name: JAI LUNA Rep #: [id number] : 1950 M 73 From: Leno hardin MD PCP: Dr. Katy Faust MD Status: ADM RUDDY Study: Cerv Spine 2 or 3 Views Date of Exam: 01/19/24 Exam# [id number] Ordering Dr: Zaira De Jesus [id number] STUDY: X-RAY - CERVICAL SPINE REASON FOR EXAM: Male, 73 years old. S/p cervical fusion -- please do upright AP and LAT TECHNIQUE: 2 view(s) of the cervical spine were obtained. COMPARISON: None FINDINGS: The patient status post anterior fusion at the C5-C6 and C6-C7 levels with a screw and plate fixation device as well as prosthetic disc. There is good alignment. RAD/Cerv Spine 2 or 3 Views IMPRESSION: Status post anterior fusion at the C5-C6 and C6-C7 levels and prosthetic discs. Electronically Signed: Leno Patterson MD at 12:08 EST Reading Location ID and State: [address] [place] [address] , Service support , CC: JANICE Barakat; Dr. Katy Faust MD Ordnance Artificer Helper: Signed Normal [facility] Bedside Glucoseon 01-18-2024 FINGERSTICK GLU 86 mg/dL Normal 74-106 [facility] Comment on above: Result Comment: ZENA GEMENT OF PATIENT CARE PER NURSING PROTOCOL Performed By: #### L 500.2500, L100.0100 #### [facility] [address] [place], [address] Cerv Spine 2 or 3 Viewson Cerv Spine 2 or 3 Views [facility] Imaging Services [address] [place] [address] Cerv Spine 2 or 3 Views MR#: [id number] Acct: [id number] Name: JAI LUNA Rep #: [id number] : 1950 M 73 From: Jonathan Kwan PCP: Dr. Katy Faust MD Status: ADM IN Study: Cerv Spine 2 or 3 Views Date of Exam: 01/18/24 Exam# [id number] Ordering Dr: Howard Siddiqui MD [id number] INDICATION: ERAS, ANTERIOR CERVICAL DISC FUSION C5-C6 AND C6-C7 EXAMINATION/TECHNIQUE : X-RAY - XR Spine Cervical 2 or 3 Views COMPARISON: No relevant prior comparison study available __ FINDINGS: Views of the cervical spine were obtained intraoperatively on a C-arm for fusion of the lower cervical spine at the levels of C5-C6 and C6-C7 with anterior plate and screws. Images were obtained for documentation only. Fluoroscopy time: 15 seconds. Number of fluoroscopic images: 7. Radiation dosage: 2.66 mGy. RAD/Cerv Spine 2 or 3 Views IMPRESSION: Intraoperative exam as described above.. Electronically Signed: Jonathan Cash MD at 11:32 EST , CC: Dr. Howard Siddiqui MD; Dr. Katy Faust MD Ordnance Artificer Helper: Signed Normal [facility] MR/POSTOP.ANEon 01-18-2024 MR/POSTOP.[facility] Medical Records Department [address] [place] [address] Anesthesia Postop Eval I 01/18/24 1031 MR#: [id number] Acct: [id number] Name: JAI LUNA Rep #: [id number] : 1950 73 From: Carmina Guadarrama PCP: Dr. Katy Faust MD Status:REG SDC Y Race: C Location: [place] [address] Anesthesia: Postop Eval I Current Vital Signs Temperature: 97 F Pulse Rate: 92 Blood Pressure: 132/75 Respiratory Rate: 16 Pulse Ox: 97 Oxygen Delivery Method: Room Air Assessment Airway patent: Yes Spontaneous unlabored respirations: Yes Mental status: Awake and Calm nausea: No Vomiting: No Anesthesia Complication: No Fluid Hydration Crystalloid volume administer (ml): 1,100 Total IV fluid infused: 1,100 Progress Note Anesthesia document: Postop Eval 1 completed: Yes 01/18/24 103 Date Carmina Briones Signature: Date CC: Signed Normal [facility] MR/TRCYNGNC5ch 01-18-2024 [facility] Medical Records Department [address] [place] [address] Anesthesia Postop Eval II 01/18/24 1556 MR#: [id number] Acct: [id number] Name: JAI LUNA Rep #: [id number] : 1950 73 From: Dexter Wheeler MD PCP: Dr. Katy Faust MD Status:ADM RUDDY Y Race: C Location: Anesthesia Postop Eval I Sum Postop Eval Completion status Anesthesia document: Postop Eval 1 completed: Yes Anesthesia Postop Eval I Summary Anesthesia Postop Eval I Summary: Anesthesia Postop Eval I: Assessment Summary Airway patent Yes 01/18/24 10:32 DATASTAGE DEVELOPER.GDOTT Spontaneous unlabored Yes 01/18/24 10:32 DATASTAGE DEVELOPER.GDOTT respirations Mental status Awake,Calm 01/18/24 10:32 DATASTAGE DEVELOPER.GDOTT nausea No 01/18/24 10:32 DATASTAGE DEVELOPER.GDOTT Vomiting No 01/18/24 10:32 DATASTAGE DEVELOPER.GDOTT Anesthesia Postop Eval I: Fluid Summary Crystalloid volume administer 1,100 01/18/24 10:32 DATASTAGE DEVELOPER.GDOTT (ml) Colloids volume administered ( ml) Blood Product volume administered (ml) Total IV fluid infused 1,100 01/18/24 10:32 DATASTAGE DEVELOPER.GDOTT Anesthesia Postop Eval I: Summary Notes Anesthesia Complication No 01/18/24 10:32 DATASTAGE DEVELOPER.GDOTT Anesthesia Complication Comment: Post-operative progress note Anesthesia: Postop Eval II Evaluation Mental status: Awake and Calm Pain Level: 1 nausea: No Vomiting: No Complications Anesthesia Complication: No 01/18/24 1557 Date Dexter Wheeler MD Cosigner Signature: Date CC: Signed Normal [facility] Operative Reporton 4 Operative Report [facility] Medical Records Department [address] [place] [address] Operative Report 01/18/24 1004 MR#: [id number] Acct: [id number] Name: LUNA,JAI M Rep #: [id number] : 1950 73 From: Howard Siddiqui MD PCP: Dr. Katy Faust MD Status:[facility] Location: [place] [address] Operative Report (Standard) Operative Information Surgery/Procedure Performed: C5-7 anterior cervical discectomy and fusion Surgeon: Howard Siddiqui Date of Procedure: 01/18/24 Procedure Start Time: 08:09 Procedure Stop Time: 10:15 Pre-Operative Diagnosis: C5-7 disc degeneration with stenosis, radiculopathy Post-Operative Diagnosis: Same Select all DRAINS/GRAFTS/IMPLANT S that apply: Drains Drain details: [place] , Graft Graft details: Structural allograft cortical cancellous strut, DBX and Implanted device Implanted device details: Medtronic Ramirez-Perez Elite anterior cervical plate instrumentation Type of Anesthesia: General Estimated Blood Loss: 30 cc Specimen collected: No Description of surgery: Preoperative diagnosis: C5-7 disc degeneration with stenosis, radiculopathy Postoperative diagnosis: Same Name of procedure: C5-7 anterior cervical discectomy and fusion with plate instrumentation - Anterior cervical fusion C5-6, CPT code 39554 - Anterior plate instrumentation C5-7, CPT code 90299/59 - Anterior cervical fusion C6-7, CPT code 49821/51 -C5-6 structural allograft bone with DBX, CPT code 68051 -C6-7 structural allograft bone with DBX, CPT code 72418 Attending surgeon: Howard Siddiqui M.D. Anesthesia: Gen. endotracheal Estimated blood loss: 30 mL Complications: None Instrumentation used: Medtronic Ramirez-Perez Elite plate, LASR corticocancellous block Indications: The patient is a pleasant 73-year-old gentleman who presented with neck pain, left worse than right radicular pain, left arm weakness. MRI showed C5-7 disc degeneration, central foraminal stenosis. Due to the presence of weakness, the patient requested surgical treatment. All risks and benefits of the procedure were explained to the patient. The risks include but are not limited to infection, bleeding, injury to nerves and vessels, vertebral artery injury, spinal cord injury, paralysis, vocal cord paralysis, injury to esophagus, pseudoarthrosis, need for further procedures, adjacent segment degeneration. Procedure: The patient was identified in the preoperative suite using unique patient identifiers. Skin was marked consent was taken and all questions were answered. The patient was then brought back to the operative room and a timeout was performed. General endotracheal anesthesia was given. Intraoperative neuro monitoring leads were applied. The patient was carefully positioned supine on a regular OR table. A lateral view with a C-arm was done to identify the level and to define the incision. The anterior neck was then prepped and draped in the usual fashion. A final timeout was then performed. A transverse skin incision was taken to the left of midline. Subcutaneous tissue was then divided with Bovie. Platysma was identified and cut along the incision with scissors. The fascial interval between the sternocleidomastoid and the larynx was developed. Vascular clips were utilized to ligate small vein. Omohyoid was identified and retracted. The esophagus with the larynx was retracted medially to reach the prevertebral fascia. Marker x-ray was performed with bent spinal needle and disc space and levels were confirmed. Longus coli muscle was elevated on both sides at and above and below C5-7 discs. Self-retaining retractors were then placed. A long handle knife was then used to perform annulotomy at C5-6. Disc fragments were removed with the pituitary. Arnold pins were placed in C5 and C6 for disc distraction. Curettes and bur was utilized to remove cartilage from the endplates. Discectomy was performed laterally up to the uncovertebral joints. Posterior osteophytes were thinned down with the bur and adequate decompression in the central and foraminal areas were performed and PLL was thinned out. Once the disc space was prepared, trials of various sizes were utilized. Thorough irrigation was given. 7 mm LASR cortical cancellous allograft bone large footprint was then fashioned in such a way that concavities were burred out inferiorly and superiorly and half cc of DBX (demineralized bone matrix) was squeezed into the cancellous portion. The graft was then inserted into the C5-6 disc space. The retractors were then repositioned and the procedure was repeated for C6-7 discs with complete discectomy. Graft size was 6 mm at with large footprint at C6-7. The grafts were found to be in good apposition with good pullout strength. A 40 mm Medtronic Ramirez-Perez Elite plate was then fixed to C5-7 with 16 mm screws. A lateral x-ray was then taken to check the length of the screws. Both AP an (more content not included)... Normal [facility] Orthopedic Visit Reporton Orthopedic Visit Report [facility] [address] [place] [address] [address] [place] [address] OFFICE VISIT Date of Service: 01/11/24 MR#: [id number] Acct: [id number] Name: JAI LUNA Rep #: [id number] : 1950 Provider: Dr. Howard Siddiqui MD Age/Sex: 73/M Location: [facility] Status: Signed Intake Vital Signs 11/10/23 10:35 Height 5 ft 6 in Intake Visit Reasons: cervical spine Accompanied by: Self Allergies clindamycin Allergy (Intermediate, Verified 01/11/24 08:03) Abd cramps/diarrhea cat dander (cats) Adverse Reaction (Verified 01/11/24 08:03) PT UNSURE OF REACTION codeine Adverse Reaction (Verified 01/11/24 08:03) Upset Stomach Medications ???Medication ???Instructions ???Recorded ???Confirmed ???Type coenzyme Q10 50 mg capsule (Co 100 mg PO DAILY vitamin 03/04/18 01/11/24 History Q-10) cholecalciferol (vitamin D3) 50 4,000 unit PO DAILY vitamin 07/21/19 01/11/24 History mcg (2,000 unit) capsule aspirin 81 mg tablet,delayed 81 mg PO DAILY 05/05/23 01/11/24 History release (Adult Low Dose Aspirin) magnesium 250 mg tablet 500 mg PO DAILY 05/05/23 01/11/24 History rosuvastatin 10 mg tablet 10 mg PO QDAY #90 tabs 11/10/23 01/11/24 Rx clopidogrel 75 mg tablet (Plavix) 75 mg PO DAILY 01/04/24 01/11/24 History multivitamin 1 tab PO DAILY 01/04/24 01/11/24 History Have you fallen in the past year?: No PFSH Medical History MRSA (methicillin resistant staph aureus) culture positive Deaf Wears hearing aid Wears glasses Cancer High cholesterol DVT (deep venous thrombosis) Injury of head and neck Loss of consciousness Gastric reflux Former smoker History of edema History of echocardiogram History of stress test Cardiology follow-up encounter Pulmonary embolism Gastric artery aneurysm Ileostomy present Rectal cancer Intra abdominal hemorrhage Dilated aortic root 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 Subclavian artery stenosis, left GERD (gastroesophageal reflux disease) Meniere's disease Bilateral carotid artery stenosis Old myocardial infarction Premature ventricular contraction Peripheral vascular disease Presence of stent in coronary artery ( 12/22/16) Essential hypertension 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 Hypoacusis Dyslipidemia HTN (hypertension) CAD (coronary artery disease) Surgical History History of coronary artery stent placement Presence of coronary angioplasty implant and graft ( 12/22/16) History of tonsillectomy History of transurethral resection of prostate ( 09/2016) S/P CABG (coronary artery bypass graft) ( 09/16/98) S/P PTCA (percutaneous transluminal coronary angioplasty) ( 12/22/16) Family History Father CAD (coronary artery disease) Myocardial infarction, Onset Age: 45 Mother Carotid artery stenosis Social History Smoking Status: Former smoker how long ago did patient quit smokin alcohol intake: current details: occasional HPI cervical spine Details: This documentation accurately reflects the service provided and the decisions made by me, Dr. Howard Siddiqui MD 01/11/24 0756. Part of today???s visit was documented by Radha MUSTAFA, acting as scribe. JAI LUNA is a 73 year old M here today for preop, cervical spine, dos 01/18/24. C5-7 ACDF. He continues to have left sided arm and leg weakness. HPI from 12/13/23: JAI LUNA is a 73 year old M here today for a MRI review of his Cervical and Lumbar Spine. Patient states no changes. Patient states the pain is the same as before the MRI's. Patient states lower back isn't to bad now it aches in the morning. Patient states left shoulder and arm are the worse. HPI from 11/04/23: JAI LUNA is a 73 year old M here today for Lumbar and Cervical pain. Patient went to the dentist yesterday and to lay down it bothered his back and then he had a pain down his left arm. Feels that he is losing muscle mass of his left arm over his biceps. Patient states his left leg is almost useless, patient can't walk distances. Patient has never had injections in his back. Patient has no numbness or tingling that shoots down his legs. The other day he did have pain in his left leg. Patient states his back pain is right above his hip in the lower back on both sides. Patient states sitting for any period of time it huts to get up. Chaka continues to have neck and low back pain with radiation to his left shoulder as well as radiation to his left lower extremity. He was seen by me in July and was advised MRI and physical therapy both of which she did (more content not included)... Normal [facility] Hepatitis A AB, Totalon HEPATITIS A,TOT Negative Normal Negative [facility] Comment on above: Result Comment: Comm ent: The HAV total antibody assay detects both IgG and IgM but does not differentiate between them. A negative result suggests susceptibility to infection. A positive result could be due to vaccination, previously resolved infection or active infection. Testing for HAV IgM should be performed if active HAV infection is suspected. [employer] offers profiles that will automatically reflex positive HAV total antibody results to IgM (e.g., panel #[id number] HAV Antibody w/ Rfx). Performed at: [address] [id number] Hand Sole Sewer: Will Stockton PhD, Phone: [phone] Performed By: #### L 100.0100, M100.651, L3890.6005, L3890.6300, BTSPAT, L3890.6200, L3100.0300 ####[facility] [address] [place], [place], [id number] MRSA/SAID NASAL SCREENon MRSA+SAID SCRN Reason for Exam: PRE-OP MRSA MRSA Negative S. AUREUS S. aureus Negative * This is an amended result. * A prior result that was reported as final has been changed. 01/06/24 1402 by CHELA Previously reported as: POSITIVE Normal [facility] Comment on above: Performed By: #### L 100.0100, M100.651, L3890.6005, L3890.6300, BTSPAT, L3890.6200, L3100.0300 ####[facility] [address] [place], [address] 12 Lead EKGon 01-05-2024 12 Lead EKG [facility] [address] [place] [address] 12 Lead EKG 01/05/24 0654 MR#: [id number] Acct: [id number] Name: JAI LUNA Rep #: [id number] : 1950 73 From: Wniter Foy MD Attending Dr: Dr. Howard Siddiqui MD Status: PRE [facility] Ordering Dr: Howard Siddiqui MD Date: 01/05/24 Location: [facility] Sex: M C Admitted: Test Reason : PREOP Blood Pressure : */* mmHG Vent. Rate : 61 BPM Atrial Rate : 61 BPM P-R Int : 162 ms QRS Dur : 120 ms QT Int : 452 ms P-R-T Axes : 21 10 42 degrees QTcB Int : 455 ms Normal sinus rhythm Right bundle branch block Abnormal ECG Confirmed by Winter Foy ([id number]), medical editor DEBORAH ELLSWORTH ([id number]) on 01/05/2024 1:10:02 PM Referred By: Howard Siddiqui Confirmed By: Winter Foy 01/05/24 1310 Date Winter Foy MD CC: Dr. Howard Siddiqui MD; Dr. Katy Faust MD Signed Normal [facility] CBC W/Diff, Automatedon 11-0 Absolute Lymph 1.71 X10 3/uL Normal 0.83-4.51 [facility] Comment on above: Performed By: #### L 100.0100, M100.651, L3890.6005, L3890.6300, BTSPAT, L3890.6200, L3100.0300 #### [facility] [address] [place], [address] Absolute Neut 3.9 X10 3/uL Normal 2.0-7.7 [facility] Comment on above: Performed By: #### L 100.0100, M100.651, L3890.6005, L3890.6300, BTSPAT, L3890.6200, L3100.0300 #### [facility] [address] [place], [address] Basophils/100 WBC (Bld) 0.9 % Normal 0-1 [facility] Comment on above: Performed By: #### L 100.0100, M100.651, L3890.6005, L3890.6300, BTSPAT, L3890.6200, L3100.0300 #### [facility] [address] [place], [address] Eosinophils/100 WBC (Bld) 6.4 % High 0-5 [facility] Comment on above: Performed By: #### L 100.0100, M100.651, L3890.6005, L3890.6300, BTSPAT, L3890.6200, L3100.0300 #### [facility] [address] [place], [address] Erythrocyte distribution width (RBC) [Ratio] 14.2 % Normal 11.6-14.6 [facility] Comment on above: Performed By: #### L 100.0100, M100.651, L3890.6005, L3890.6300, BTSPAT, L3890.6200, L3100.0300 #### [facility] [address] [place], [address] Hematocrit (Bld) [Volume fraction] 41.0 % Normal 40-54 [facility] Comment on above: Performed By: #### L 100.0100, M100.651, L3890.6005, L3890.6300, BTSPAT, L3890.6200, L3100.0300 #### [facility] [address] [place], [address] Hemoglobin (Bld) [Mass/Vol] 13.3 g/dL Normal 13.0-16.5 [facility] Comment on above: Performed By: #### L 100.0100, M100.651, L3890.6005, L3890.6300, BTSPAT, L3890.6200, L3100.0300 #### [facility] [address] [place], [address] IG% 0.400 Normal 0.0-0.9 [facility] Comment on above: Result Comment: IG% - Immature Granulocytes (promyelocytes, myelocytes and metamyelocytes) > 1% indicates that a LEFT SHIFT is Present. Performed By: #### L 100.0100, M100.651, L3890.6005, L3890.6300, BTSPAT, L3890.6200, L3100.0300 #### [facility] [address] [place], [address] Lymphocytes/100 WBC (Bld) 24.7 % Normal 19-41 [facility] Comment on above: Performed By: #### L 100.0100, M100.651, L3890.6005, L3890.6300, BTSPAT, L3890.6200, L3100.0300 #### [facility] [address] [place], [address] MCH (RBC) [Entitic mass] 31.2 pg Normal 27.0-32.0 [facility] Comment on above: Performed By: #### L 100.0100, M100.651, L3890.6005, L3890.6300, BTSPAT, L3890.6200, L3100.0300 #### [facility] [address] [place], [address] MCHC (RBC) [Mass/Vol] 32.4 g/dL Normal 32-36 [facility] Comment on above: Performed By: #### L 100.0100, M100.651, L3890.6005, L3890.6300, BTSPAT, L3890.6200, L3100.0300 #### [facility] [address] [place], [address] MCV (RBC) [Entitic vol] 96.2 fL High 80-94 [facility] Comment on above: Performed By: #### L 100.0100, M100.651, L3890.6005, L3890.6300, BTSPAT, L3890.6200, L3100.0300 #### [facility] [address] [place], [address] Monocytes/100 WBC (Bld) 10.6 % High 0-10 [facility] Comment on above: Performed By: #### L 100.0100, M100.651, L3890.6005, L3890.6300, BTSPAT, L3890.6200, L3100.0300 #### [facility] [address] [place], [address] Neutrophils/100 WBC (Bld) 57.0 % Normal 47-70 [facility] Comment on above: Performed By: #### L 100.0100, M100.651, L3890.6005, L3890.6300, BTSPAT, L3890.6200, L3100.0300 #### [facility] [address] [place], [address] Nucleated RBC (Bld) [#/Vol] 0 10*3/uL Normal 0-5 [facility] Comment on above: Performed By: #### L 100.0100, M100.651, L3890.6005, L3890.6300, BTSPAT, L3890.6200, L3100.0300 #### [facility] [address] [place], [address] Platelet mean volume (Bld) [Entitic vol] 10.5 fL Normal 6.2-12.0 [facility] Comment on above: Performed By: #### L 100.0100, M100.651, L3890.6005, L3890.6300, BTSPAT, L3890.6200, L3100.0300 #### [facility] [address] [place], [address] Platelets (Bld) [#/Vol] 231 10*3/uL Normal 150-450 [facility] Comment on above: Performed By: #### L 100.0100, M100.651, L3890.6005, L3890.6300, BTSPAT, L3890.6200, L3100.0300 #### [facility] [address] [place], [address] RBC (Bld) [#/Vol] 4.26 10*6/uL Low 4.6-6.2 [facility] Comment on above: Performed By: #### L 100.0100, M100.651, L3890.6005, L3890.6300, BTSPAT, L3890.6200, L3100.0300 #### [facility] [address] [place], [address] RDW SD 50.4 fl High 35.1-43.9 [facility] Comment on above: Performed By: #### L 100.0100, M100.651, L3890.6005, L3890.6300, BTSPAT, L3890.6200, L3100.0300 #### [facility] [address] [place], [address] WBC (Bld) [#/Vol] 6.9 10*3/uL Normal 4.4-11.0 [facility] Comment on above: Performed By: #### L 100.0100, M100.651, L3890.6005, L3890.6300, BTSPAT, L3890.6200, L3100.0300 #### [facility] [address] [place], [address] HIV - WCHon 01-05-2024 HIV Non-Reactive Normal Nonreactive [facility] Comment on above: Order Comment: Reaso n for Exam: PAT Performed By: #### L 100.0100, M100.651, L3890.6005, L3890.6300, BTSPAT, L3890.6200, L3100.0300 ####[facility] [address] [place], [address] Hepatitis B Surface Antibody on 01-05-2024 HEP B Surf Ab Reactive Normal [facility] Comment on above: Order Comment: Reaso n for Exam: PAT Result Comment: Non Reactive: Inconsistent with immunity less than <10 mIU/mL Reactive: Consistent with immunity greater than or equal to 10 mIU/mL Performed By: #### L 100.0100, M100.651, L3890.6005, L3890.6300, BTSPAT, L3890.6200, L3100.0300 ####[facility] [address] [place], [place], [phone] Hepatitis C Antibodyon 01-04 Hepatitis C AB Non-Reactive Normal Nonreactive [facility] Comment on above: Order Comment: Reaso n for Exam: PAT Result Comment: Non Reactive: < 0.8 Equivocal: >/= 0.8 to < 1.0 Reactive: >/= 1.0 The CDC requires that a reactive/equivocal HCV antibody result be sent out for confirmation. HCV Quant by PCR testing. Performed By: #### L 100.0100, M100.651, L3890.6005, L3890.6300, BTSPAT, L3890.6200, L3100.0300 ####[facility] [address] [place], [address] Magnesiumon 01-05-2024 Magnesium [Mass/Vol] 2.3 mg/dL Normal 1.6-2.6 [facility] Comment on above: Performed By: #### L 501.5200 #### [facility] [address] [place], [address] Type AND Screen - PAT ONLYon 01-05-2024 ABO and Rh group Nom (Bld) Blood group B Rh(D) positive Normal [facility] Comment on above: Order Comment: Surge ry Date: 01/18/24 Reason for Laboratory Test PRE-OP [id number] No N N S ERAS, Anterior Cervical Disc Fusion C5-6 and C6-7 Performed By: #### L 100.0100, M100.651, L3890.6005, L3890.6300, BTSPAT, L3890.6200, L3100.0300 #### [facility] [address] [place], [address] CNOVon 01-04-2024 CNOV Office Visit (INTMWS ) JAI LUNA ([id number]) 1950 M Date Time Provider Department 01/04/24 2:40 PM NORM PARKER INTMWS During your visit today, we recorded the following information about you: Pulse Blood pressure Weight Height 64/minute 136/74 85.9 kg 1.645 m Norm Parker APRN.[employer] SYSTEM INSTALLER 01/05/2024 3:29 PM Addendum SUBJECTIVE Jai Luna is a 73 year old male here today for a check up on his medical problems. Chief Complaint Patient presents with: Pre-Op Exam: ACDF of C5-[address] Siddiqui HPI Jai Di Luna is an 73 year old male presents to the office for pre-op examination. Is scheduled to have ACDF C5-C7 done on 01/18/[address] Siddiqui at [facility]. History of having anesthesia: Yes. Any reaction from anesthesia in the past: No. Has had mulitple surgeries in the last few years and done well with this. Personal or family history of heart disease: Yes: had stress test yesterday. Chronic diseases controlled: Yes. Currently taking a blood thinner: Yes: Plavix. Patient denies chest pain, SOB, dizziness, palpitations, one sided weakness, dropping of face or mouth, fever, or recent sickness. No history of CVA or NM. Sees [facility], had a stress test yesterday. Everything was good with that. Has a stent in the left arm, on Plavix and baby aspirin. Has been advised to hold the plavix starting 7 days before. EKG and labs tomorrow. History of blood clots. Prior CABG. His medications were reviewed today and his list is now up to date. Medications Current Outpatient Medications Medication Sig rosuvastatin (CRESTOR) 10 mg tablet Take 1 tablet by mouth once daily. clopidogrel (PLAVIX) 75 mg tablet Take 75 mg by mouth. multivitamin tablet Take 1 tablet by mouth once daily. aspirin, enteric coated (ADULT LOW DOSE ASPIRIN) 81 mg EC tablet Take 1 tablet by mouth once daily. coenzyme Q10 (COENZYME Q-10) 100 mg cap capsule Take 100 mg by mouth once daily. Cholecalciferol, Vitamin D3, 50 mcg (2,000 unit) cap Take 1 capsule by mouth two times a week. Miscellaneous Medical Supply Increase monthly supply of ostomy pouches to 12 per month(8 per month not adequate) No current facility-administered medications for this visit. ALLERGIES Allergen Reactions Cat Dander Other: See Comments Clindamycin GI Upset Codeine GI Upset ACTIVE PROBLEM LIST History of Pulmonary Embolism - 09/22/2023 Pvd (Peripheral Vascular Disease) ([facility]) - 09/22/2023 History of Dvt (Deep Vein Thrombosis) - 09/22/2023 Acute Deep Vein Thrombosis (Dvt) of Proximal Vein of Left Lower Extremity ([facility]) - 07/21/2022 Pulmonary Embolism and Infarction ([facility]) - 03/02/2022 Pulmonary Embolism ([facility]) - 02/13/2022 Hypokalemia - 02/10/2022 Urinary Retention - [address] ([facility]) - 01/28/2022 Rectal Cancer ([facility]) - 01/27/2022 Rectal Malignant Neoplasm ([facility]) - 05/29/2021 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 Bilateral Carotid Artery Stenosis - 04/30/2021 Cervical Radiculopathy - 04/30/2021 Hearing Loss - 04/30/2021 History of Cardiac Catheterization - 04/30/2021 Status Post Coronary Artery Bypass Graft - 04/30/2021 Atherosclerosis of Coronary Artery Bypass Graft - 01/18/2013 Dyslipidemia - 01/16/2013 History of Myocardial Infarction - 08/29/1998 Social History Tobacco Use Smoking status: Former Current packs/day: 0.00 Average packs/day: 1 pack/day for 30.0 years (30.0 ttl pk-yrs) Types: Cigarettes Start date: 01/28/1970 Quit date: 01/29/2000 Years since quittin.9 Smokeless tobacco: Never Vaping Use Vaping status: Never Used Substance Use Topics Alcohol use: Not Currently Comment: rarely Drug use: No Review of Systems Constitutional: Negative. Eyes: Negative for visual disturbance. Respiratory: Negative for chest tightness and shortness of breath. Cardiovascular: Negative for chest pain, palpitations and leg swelling. Neurological: Negative for seizures, syncope, facial asymmetry and speech difficulty. OBJECTIVE BP 136/74 Pulse 64 Ht 5' 4.75" (1.65m) Wt 189 lb 6 oz (85.9kg) SpO2 98% BMI 31.74 kg/(m2). Physical Exam Vitals and nursing note reviewed. Constitutional: General: He is awake. He is not in acute distress. Appearance: He is well-developed and well-groomed. He is not ill-appearing, toxic-appearing or diaphoretic. HENT: Head: Normocephalic. Eyes: General: Vision grossly intact. Conjunctiva/sclera: Conjunctivae normal. Pupils: Pupils are equal, round, and reactive to light. Neck: Vascular: No JVD. Cardiovascular: Rate and Rhythm: Normal rate and regular rhythm. Heart sounds: Normal heart sounds. No murmur heard. Pulmonary: Effort: Pulmonary effort is normal. No accessory muscle usage, prolonged expiration or respiratory distress. Breath sounds: Normal breath sounds. Musculoskeletal: General: Normal range of motion. Cervical ba (more content not included)... Normal [facility] Office Visiton 07-14-2023 Follow-up visit [id number] Silvio Luna 1950 M Date Provider Department Center 07/14/2023 [facility] None Family History Family Status - Relation Status Age at Mother Father Level of Service:79[address] [place] OFFICE/OUTPATIENT NEW HIGH MDM 60 MINUTES Reason for Visit and Comments: New Patient [542] - Evaluation for second opinion for ongoing rectal bleeding since sx, s/p - robotic asst lap LAR w/ intraoperative angiogram w/ diverting loop ileostomy 01/27/[address] Cheung h/o of rectal squamos cell cancer diagnosed in 04/2021, h/o of chemothearpy OTHER [Other] - Pt accompanied by [facility] PATINSon 07-14-2023 PATINS - Recommendation is to identify the source of your rectal bleeding - Follow-up with Urology to evaluate for a fistula connection to the urethra - Further surgical intervention is recommended to be pursued with Dr. Cheung or through the [facility] given the complexity of your case. Further work-up prior to surgery should be performed through the [facility] as any further surgical intervention would be recommended through this institution. [facility] Progress Noteon 07-14-2023 Progress Note HPI: Patient present s to evaluate for second opinion for ongoing rectal bleeding since sx, s/p - robotic asst lap LAR w/ intraoperative angiogram w/ diverting loop ileostomy 01/27/[address] 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 Rectal bleeding daily, significant at times, using baby wipes to clean up episodes of bleeding, Ileostomy from original surgery remains in place, reconnection not recommended by Dr. Cheung due to potential risk. Patient wears dry pad to protect underwear throughout the day, typically only needs one pad per day, patient notes bright red blood per rectum when urinating requiring him to sit on the toilet when urinating. Reports passing urine when ejaculating since surgery. [facility] Progress Note COLORECTAL SURGERY OFFICE VISIT PATIENT NAME: Jai Luna : 1950 TODAY'S DATE: 07/14/2023 Chief Complaint Patient presents with New Patient Evaluation for second opinion for ongoing rectal bleeding since sx, s/p - robotic asst lap LAR w/ intraoperative angiogram w/ diverting loop ileostomy 01/27/[address] Cheung h/o of rectal squamos cell cancer diagnosed in 04/2021, h/o of chemothearpy OTHER Pt accompanied by SUBJECTIVE: Jai Luna is a 73 y.o. male who is here today for Evaluation for second opinion for ongoing rectal bleeding since sx, s/p - robotic asst lap LAR w/ diverting loop ileostomy 01/27/[address] Cheung h/o of rectal squamous cell cancer diagnosed in 04/2021, h/o of chemoradiation prior to surgery Pt underwent examination under general anesthesia to the anorectal area, flex sig, and Drainage of the presacral space collection by Dr. Cheung. 06/21/22 His ileostomy is still in place and never reversed Patient c/o rectal bleeding daily, significant at times, using baby wipes to clean up episodes of bleeding, reconnection not recommended by Dr. Cheung due to potential risk. Patient wears dry pad to protect underwear throughout the day, typically only needs one pad per day, patient notes bright red blood per rectum when urinating requiring him to sit on the toilet when urinating. Reports passing urine when ejaculating since surgery. Review of Systems as documented Past Medical History: Diagnosis Date Rectal cancer (CMS/HCC) ([facility]) S/P triple vessel bypass Past Surgical History: Procedure Laterality Date COLONOSCOPY OTHER SURGICAL HISTORY rupture blood vessel PROSTATE SURGERY STENT INSERTION (HISTORICAL) Current Outpatient Medications on File Prior to Visit Medication Sig Dispense Refill aspirin 81 MG EC tablet Take 81 mg by mouth in the morning. clopidogrel (Plavix) 75 MG tablet Take 75 mg by mouth daily. No current facility-administered medications on file prior to visit. Social History Socioeconomic History Marital status: Spouse name: Not on file Number of children: Not on file Years of education: Not on file Highest education level: Not on file Occupational History Not on file Tobacco Use Smoking status: Former Types: Cigarettes Smokeless tobacco: Not on file Substance and Sexual Activity Alcohol use: Yes Drug use: Never Sexual activity: Not on file Other Topics Concern Not on file Social History Narrative Not on file Social Determinants of Health Financial Resource Strain: Not on file Food Insecurity: Not on file Transportation Needs: Not on file Physical Activity: Not on file Stress: Not on file Social Connections: Not on file Intimate Partner Violence: Not on file Housing Stability: Not on file No family history on file. Allergies: Allergies Allergen Reactions Clindamycin Other Codeine Other OBJECTIVE: BP 116/68 (BP Location: Right arm, Patient Position: Sitting, BP Cuff Size: Large adult long) Temp 37.1 ?C (98.7 ?F) (Oral) Ht 5' 6" (1.676 m) Wt 190 lb 9.6 oz (86.5 kg) BMI 30.76 kg/m? Physical Examination GENERAL: NAD, alert, oriented HEENT: Pupils equal, normal conjunctivae without scleral icterus PULMONARY: Normal respiratory effort, chest non-tender CARDIO: no edema ABDOMEN: soft, non-distended, non-tender, no guarding, no rebound, no obvious hepatosplenomegaly; ileostomy in place PSYCHIATRIC: appropriate mood and judgement RECTUM: Perianal skin appears normal, no rashes. Perianal sensation normal. Digital Exam: Tone: normal; Palpable masses: no Anoscope: colorectal anastomotic stricture with friable, bleeding mucosa Exam chaperoned by female insurance sales assistant. ASSESSMENT/PLAN: Diagnosis Plan 1. Rectal bleeding External referral to Colorectal Surgery 2. History of rectal cancer External referral to Colorectal Surgery 3. Colorectal anastomotic stricture External referral to Colorectal Surgery Patient is referred back to Dr. 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 Kimball for further work-up/surgical intervention . Sabrina Muñiz MD [facility] Colorectal Surgery [address], [address] [place], [place] [address] p [phone] f [phone] Normal [facility] Absolute lymphocyte countOrd ered By: Raghu Reynolds on 07-08-2023 Lymphocytes Auto (Unsp spec) [#/Vol] 1.22 10*3/uL 0.83-4.51 [facility] Automated lymphocyte count a s percentage of total leukocytesOrdered By: Raghu Reynolds on 07-08-2023 Lymphocytes/100 WBC Auto (Unsp spec) 21.1 % 19-41 [facility] Basophil percentageOrdered B y: Raghu Reynolds on 07-08-2023 Basophils/100 WBC (Bld) 1.0 % 0-1 [facility] Chloride [Moles/Vol] 115 mmol/L 98-107 [facility] Eosinophils/100 WBC (Bld) 5.2 % 0-5 [facility] Glucose [Mass/Vol] 99 mg/dL 74-106 [facility] Hemoglobin (Bld) [Mass/Vol] 12.9 g/dL 13.0-16.5 [facility] Monocytes/100 WBC (Bld) 11.3 % 0-10 [facility] Neutrophils (Bld) [#/Vol] 3.5 10*3/uL 2.0-7.7 [facility] Neutrophils/100 WBC (Bld) 61.1 % 47-70 [facility] Potassium [Moles/Vol] 3.9 mmol/L 3.5-5.1 [facility] Sodium [Moles/Vol] 142 mmol/L 136-145 [facility] WBC (Bld) [#/Vol] 5.8 10*3/uL 4.4-11.0 [facility] Determination of erythrocyte mean corpuscular volume (MCV)Ordered By: Raghu Reynolds on 07-08-2023 MCV (RBC) [Entitic vol] 98.3 fL 80-94 [facility] Erythrocyte distribution wid th ratioOrdered By: Raghu Reynolds on 07-08-2023 Erythrocyte distribution width (RBC) [Ratio] 14.2 % 11.6-14.6 [facility] Erythrocyte distribution wid th standard deviationOrdered By: Raghu Reynolds on 07-08-2023 Erythrocyte distribution width (RBC) [Entitic vol] 51.8 fL 35.1-43.9 [facility] Hematocrit Auto (Bld) [Volum e fraction]Ordered By: Raghu Reynolds on 07-08-2023 Hematocrit (Bld) [Volume fraction] 40.7 % 40-54 [facility] Immature granulocytes/100 WB C Auto (Bld)Ordered By: Raghu Reynolds on 07-08-2023 Immature granulocytes/100 WBC (Bld) 0.300 % 0.0-0.9 [facility] Comment on above: IG% - Immature Granu locytes (promyelocytes, myelocytes and metamyelocytes) > 1% indicates that a LEFT SHIFT is Present. Laboratory - Chemistry and C hemistry - challengeOrdered By: Raghu Reynolds on 07-08-2023 CO2 [Moles/Vol] 24.0 mmol/L 21.0-32.0 [facility] Urea nitrogen/Creatinine [Mass ratio] 14.4 mg/mg 10-20 [facility] Laboratory - Hematology and Cell countsOrdered By: Raghu Reynolds on 07-08-2023 MCH (RBC) [Entitic mass] 31.2 pg 27.0-32.0 [facility] MCHC (RBC) [Mass/Vol] 31.7 g/dL 32-36 [facility] Nucleated RBC/100 WBC (Bld) [Ratio] 0 % 0-5 [facility] Platelet mean volume (Bld) [Entitic vol] 9.9 fL 6.2-12.0 [facility] Platelets (Bld) [#/Vol] 236 10*3/uL 150-450 [facility] No Panel InformationOrdered By: Raghu Reynolds on 07-08-2023 Estimated Creatinine Clearance Calc 51.03 ml/min [facility] Estimated GFR (MDRD) Amer 68 mL/min >60 [facility] Comment on above: GFR Calc Estimated GFR (MDRD) Non-Af Amer 56 mL/min >60 [facility] Comment on above: Non- GFR Calc RBC Auto (Bld) [#/Vol]Ordere d By: Raghu Reynolds on 07-08-2023 RBC (Bld) [#/Vol] 4.14 10*6/uL 4.6-6.2 [facility] Serum or plasma calcium shae urement (mass/volume)Ordered By: Raghu Reynolds on 07-08-2023 Calcium [Mass/Vol] 8.6 mg/dL 8.5-10.1 [facility] Serum or plasma creatinine m easurement (mass/volume)Ordered By: Raghu Reynolds on 07-08-2023 Creatinine [Mass/Vol] 1.32 mg/dL 0.70-1.30 [facility] Comment on above: The validity of the calculated GFR & GFRAA in patients over 70 years has not been determined. Clinical correlation is essential. Serum or plasma urea nitroge n measurement (mass/volume)Ordered By: Raghu Pottsey on 07-08-2023 Urea nitrogen [Mass/Vol] 19 mg/dL 7-18 [facility] Thin prep Papanicolaou smear with manual screeningOrdered By: Raghu Gail on 07-08-2023 Thin prep Papanicolaou smear with manual screening 3 - [facility] 36on 06-16-2023 36 Spoke with patient scheduled for 07/14/23 @ 1:[address] Muñiz, pt verbalized understanding of appt date/time. Patient verbalized understanding of recommendation. Per Diana at Dr. Cheung office, patient was last seen in 05/20/2022, and will be faxing over notes. [facility] 36on 06-15-[address] Muñiz, please schedule next available appointment. Per Dr. Muñiz if symptoms worsen patient is to contact Dr. Cheung or go to the nearest ED for further evaluation. Per Dr. Muñiz request recent OV with Dr. Cheung for further review. [address] 06-11-[address] Bray office, they will be faxing patient records. [place] [address] Spoke with patient, per patient requesting to schedule appointment with Dr. Muñiz for second opinion. Per patient states he has an ileostomy, states output is good, no issues. Per patient concern is the rectal bleeding that has been going on since his surgery w/ Dr. Cheung at [facility]. Per our legal officer, we will review with Dr. Muñiz for appointment once we have records. If patient is bleeding profusely and feeling unwell patient should go to ED for further evaluation. Patient verbalized understanding. [place] [address] Patient submitted online appointment request, please call to discuss/schedule. FirstName : Jai LastName : Luna Pronouns : Other (please specify) PronounsOther : Email : [email or web address] Phone : [phone] Birthdate : 1950 12:00:00 AM BestTimeToCallBack : Any AppointmentDate : As soon as possible. PhysicianRequested : Dr. Sabrina Muñiz MD Symptoms : Bleeding 16 months after rectal cancer surgery on January 27, 2022. OptIn : False Normal [facility] MR IAC W AND WO IV CONTRASTo n 03-24-2023 MR IAC W AND WO IV CONTRAST Interpreted By: Toro Newman, STUDY: MR IAC W AND WO IV CONTRAST; 03/24/2023 2:41 pm INDICATION: Signs/Symptoms:acoust ic neuroma. COMPARISON: MRI IAC dated 02/10/2021. ACCESSION NUMBER(S): [id number] ORDERING CLINICIAN: GISELA CAN TECHNIQUE: Standard multiplanar multisequence MR imaging was performed through the brain prior to and following administration of 17 mL Dotarem intravenous contrast. Additional dedicated pre and post-contrast MR imaging was performed through the internal auditory canals. FINDINGS: Parenchyma: There is no diffusion restriction abnormality to suggest acute infarct. No evidence of recent hemorrhage. There is no mass effect or midline shift. No abnormal parenchymal enhancement. Mild chronic small vessel ischemic disease. CSF Spaces: The ventricles, sulci and basal cisterns are stable in appearance with moderate generalized brain atrophy. Basilar cisterns are patent. Extra-axial spaces: No extra-axial fluid collection. Intracranial Flow Voids: Patent appearing. Paranasal Sinuses: Partial opacification of the anterior and posterior ethmoids bilaterally with moderate mucosal thickening. There is also mucosal thickening of the right sphenoid sinus. Mild mucosal thickening of the inferior maxillary paranasal sinuses bilaterally. Mastoids: Trace fluid within the inferior right mastoid. 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 The size and extent is not appreciably changed from comparison examination. Bilateral inner ear structures demonstrate otherwise expected signal and postcontrast appearance. The right internal auditory canal and cerebellopontine angle region are normal in appearance. Orbits: Normal. Calvarium: No suspicious osseous marrow signal. 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 There is extension to the cochlear aperture as on prior exam with mild extension into the left cerebellopontine angle region. No acute infarct, recent hemorrhage, interval intracranial mass effect, or otherwise abnormal parenchymal enhancement. Moderate generalized brain atrophy with mild chronic small vessel ischemic disease. MACRO: None Signed by: Toro Newman 03/24/2023 3:32 PM Dictation workstation: [id number] 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 There is extension to the cochlear aperture as on prior exam with mild extension into the left cerebellopontine angle region. No acute infarct, recent hemorrhage, interval intracranial mass effect, or otherwise abnormal parenchymal enhancement. Moderate generalized brain atrophy with mild chronic small vessel ischemic disease. MACRO: None Signed by: Toro Newman 03/24/2023 3:32 PM Dictation workstation: [id number] MMODAL Interpreted By: Toro Newman, STUDY: MR IAC W AND WO IV CONTRAST; 03/24/2023 2:41 pm INDICATION: Signs/Symptoms:acoust ic neuroma. COMPARISON: MRI IAC dated 02/10/2021. ACCESSION NUMBER(S): [id number] ORDERING CLINICIAN: GISELA CAN TECHNIQUE: Standard multiplanar multisequence MR imaging was performed through the brain prior to and following administration of 17 mL Dotarem intravenous contrast. Additional dedicated pre and post-contrast MR imaging was performed through the internal auditory canals. FINDINGS: Parenchyma: There is no diffusion restriction abnormality to suggest acute infarct. No evidence of recent hemorrhage. There is no mass effect or midline shift. No abnormal parenchymal enhancement. Mild chronic small vessel ischemic disease. CSF Spaces: The ventricles, sulci and basal cisterns are stable in appearance with moderate generalized brain atrophy. Basilar cisterns are patent. Extra-axial spaces: No extra-axial fluid collection. Intracranial Flow Voids: Patent appearing. Paranasal Sinuses: Partial opacification of the anterior and posterior ethmoids bilaterally with moderate mucosal thickening. There is also mucosal thickening of the right sphenoid sinus. Mild mucosal thickening of the inferior maxillary paranasal sinuses bilaterally. Mastoids: Trace fluid within the inferior right mastoid. 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 The size and extent is not appreciably changed from comparison examination. Bilateral inner ear structures demonstrate otherwise expected signal and postcontrast appearance. The right internal auditory canal and cerebellopontine angle region are normal in appearance. Orbits: Normal. Calvarium: No suspicious osseous marrow signal. [facility] MMODAL Toro Newman MD - 03/24/2023 Interpreted By: Toro Newman, STUDY: MR IAC W AND WO IV CONTRAST; 03/24/2023 2:41 pm INDICATION: Signs/Symptoms:acoust ic neuroma. COMPARISON: MRI IAC dated 02/10/2021. ACCESSION NUMBER(S): [id number] ORDERING CLINICIAN: GISELA CAN TECHNIQUE: Standard multiplanar multisequence MR imaging was performed through the brain prior to and following administration of 17 mL Dotarem intravenous contrast. Additional dedicated pre and post-contrast MR imaging was performed through the internal auditory canals. FINDINGS: Parenchyma: There is no diffusion restriction abnormality to suggest acute infarct. No evidence of recent hemorrhage. There is no mass effect or midline shift. No abnormal parenchymal enhancement. Mild chronic small vessel ischemic disease. CSF Spaces: The ventricles, sulci and basal cisterns are stable in appearance with moderate generalized brain atrophy. Basilar cisterns are patent. Extra-axial spaces: No extra-axial fluid collection. Intracranial Flow Voids: Patent appearing. Paranasal Sinuses: Partial opacification of the anterior and posterior ethmoids bilaterally with moderate mucosal thickening. There is also mucosal thickening of the right sphenoid sinus. Mild mucosal thickening of the inferior maxillary paranasal sinuses bilaterally. Mastoids: Trace fluid within the inferior right mastoid. 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 The size and extent is not appreciably changed from comparison examination. Bilateral inner ear structures demonstrate otherwise expected signal and postcontrast appearance. The right internal auditory canal and cerebellopontine angle region are normal in appearance. Orbits: Normal. Calvarium: No suspicious osseous marrow signal. 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 There is extension to the cochlear aperture as on prior exam with mild extension into the left cerebellopontine angle region. No acute infarct, recent hemorrhage, interval intracranial mass effect, or otherwise abnormal parenchymal enhancement. Moderate generalized brain atrophy with mild chronic small vessel ischemic disease. MACRO: None Signed by: Toro Newman 03/24/2023 3:32 PM Dictation workstation: [id number] [facility] Work Phone: Radiology Study observation (narrative) [facility] Work Phone: MR Internal auditory canal W O and W contrast IVOrdered By: Toro Newman on 03-24-2023 [facility] Work Phone: SURGICAL PATHOLOGYon 023 Case Report Surgical Pathology Report Case: [id number] Authorizing Provider: Justin William MD Collected: 12/03/2022 11:49 AM Ordering Location: [facility] Radiology Received: 12/03/2022 01:29 PM Pathologist: Alice Young MD Specimen: DEVICE [facility] Clinical History IVC filter [facility] FINAL DIAGNOSIS A. Inferior vena cava, hardware removal: - Vascular filter (gross examination only). CT/AKA 12/04/22 12:56 PM [facility] Gross Description A. DEVICE Received in formalin, labeled "device" is a vascular filter composed of 6 struts, of equal length. The vascular filter is intact with a minimal amount of pink-red fibrous tissue present. A photograph is taken. No sections are submitted. The specimen is for gross examination only. The specimen is reviewed with Dr. Young. AKA December 04, 2022 10:37 AM Gross examination performed at [facility], [facility] [address] Performing Lab Diagnostic interpretation performed at [facility], [facility] [place] [address] CLIA# [id number] Set Decorator: Torey Walker M.D. [facility] BRIEF OP NOTon 12-03-2022 BRIEF OP NOT HNO ID: [id number] Author: Justin William MD Service: ? Author Type: Physician Type: Brief Op Note Filed: 12/03/2022 11:46 AM Note Text: BRIEF OPERATIVE / PROCEDURE NOTE LOG ID: [id number] SURGERY/PROCEDURE DATE: 12/03/2022 INCISION/PROCEDURE START TIME: 11:24 AM INCISION CLOSE/PROCEDURE END TIME: 11:37 AM SURGEON(S)/PROCEDURAL IST(S) AND PUMPING STATION SUPERVISOR(S): Surgeon(s) and Role: * Justin William MD - Primary No Additional Staff SURGERY/PROCEDURE(S): IVC filter removal ANESTHESIA: Procedural Sedation FINDINGS: Normal anatomy as visualized. No caval thrombus or stenosis. ESTIMATED BLOOD LOSS: 2 mL SPECIMENS: IVC filter COMPLICATIONS: None CLOSURE TECHNIQUE: Primary PRE-OP/PRE-PROCEDURE DIAGNOSIS: Retrievable IVC filter. Filter no longer required. POST-OP/POST-PROCEDUR E DIAGNOSIS: Same as Preop SIGNATURE: Justin William MD PATIENT NAME: Jai Luna DATE: December 03, 2022 TIME: 11:45 AM [facility] HISTORY PHYSICALon HISTORY PHYSICAL HNO ID: [id number] Author: Justin William MD Service: ? Author Type: Physician Type: HANDP Filed: 12/03/2022 11:16 AM Note Text: PROCEDURAL SEDATION HISTORY AND PHYSICAL EXAM SERVICE DATE: 12/03/2022 SERVICE TIME: 11:16 AM Subjective HPI: This is a 72 year old male who presents with IVC filter for removal. 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 coronary artery bypass graft 01/18/2013 Bilateral carotid artery stenosis 04/30/2021 Coronary atherosclerosis of unspecified type of vessel, seneca or graft Coronary artery disease Diverticulosis of colon (without mention of hemorrhage) Dyslipidemia 01/16/2013 History of transfusion Hypertension Rectal malignant neoplasm (HCC) 05/29/2021 Rectal mass PAST SURGICAL HISTORY Procedure Laterality Date COLONOSCOPY 03/20/2021 COLONOSCOPY FLX DX W/COLLJ SPEC WHEN PFRMD 08/24/2007 Colonoscopy CORONARY ARTERY BYP W/VEIN AND ARTERY GRAFT 3 VEIN 03/01/1994 CABG, three grafts EYE SURGERY HX HEART SURGERY HX PERC TRANSL COR ANGIO 10/31/2003 Percutaneous Transluminal Coronary Angio Status PROSTATE SURGERY HX STRABISMUS RECESSION/RESCJ 1 [facility]NTL [facility] Strabismus surgery TONSILLECTOMY HX TONSILLECTOMY PRIMARY/SECONDARY Tonsillectomy VASCULAR SURGERY PROCEDURE Prior to Admission medications as of 12/03/22 1114 Medication Sig Last Dose Taking warfarin (COUMADIN) 5 mg tablet 7.5 mg on and and 5 mg all other days. 11/28/2022 Ostomy Supplies (SENSURA CLICK OSTOMY POUCH) misc 1 Each four times a week. Sensura one Piece Precut 1 in Convex Ostomy Adhesive (STOMAHESIVE PASTE) pste 1 application four times a week. ConvaTec Brand atorvastatin (LIPITOR) 40 mg tablet Take 1 tablet by mouth daily at bedtime. For cholesterol per [facility]. coenzyme Q10 (COENZYME Q-10) 100 mg cap capsule Take 100 mg by mouth once daily. Cholecalciferol, Vitamin D3, 50 mcg (2,000 unit) cap Take 1 capsule by mouth two times a week. ALLERGIES Allergen Reactions Cat Dander Other: See Comments Clindamycin GI Upset Codeine GI Upset Objective PHYSICAL EXAM: The remainder of the physical exam is noncontributory. AIRWAY: Airway Visualization of Uvula: Yes Mouth opening greater than 2 fingerbreadths: Yes LUNGS: Lungs clear to auscultation CARDIAC: Regular rhythm,Regular rate Assessment/Plan ASA Class: ASA Class:: Patient with mild systemic disease Active Problems: * No active hospital problems. * Resolved Problems: * No resolved hospital problems. * Medication and Non-Pharmacologic VTE Prophylaxis/Anticoagu lants VTE Prophylaxis: VTE prophylaxis appropriate Provisional Diagnosis/Treatment Plan: IVC filter for removal. SEDATION GOAL: Moderate SIGNATURE: Justin William MD PATIENT NAME: Jai Luna DATE: December 03, 2022 TIME: 11:15 AM [facility] IR INFERIOR CAVA VENOGRAMon 12-03-2022 IR INFERIOR CAVA VENOGRAM * * *Final Report* * * DATE OF EXAM: Dec 03 2022 11:37AM JA [id number] - IR INFERIOR CAVA VENOGRAM / PROCEDURE REASON: S/P IVC filter [Z95.828] * * * * Physician Interpretation * * * * PROCEDURE: INFERIOR VENA CAVA (IVC) FILTER RETRIEVAL Procedural Personnel Attending physician(s): Justin William M.D. Fellow physician(s): None Resident physician(s): None Advanced practice provider(s): None Medical Student(s): None Pre-procedure diagnosis: History of DVT and pulmonary emboli, status post retrievable filter placement. Patient now in satisfactory anticoagulation regimen Post-procedure diagnosis: Same Indication: The patient's contraindication to anticoagulation has been rescinded and anticoagulation can be or has been initiated. Additional clinical history: None PROCEDURE SUMMARY: IVC filter retrieval with fluoroscopic guidance - Additional procedure(s): None PROCEDURE DETAILS: Pre-procedure Consent: Risks, benefits, treatment options, potential complications and personnel to be involved were discussed (including the risks of radiation exposure, contrast and anesthesia administration, and any equipment needed for the procedure to ensure best possible outcome) with the patient and all questions were answered and consent was obtained prior to procedure. Premedicated for contrast allergy: n/a Transfusion of blood products: No Medication reconciliation: The patient's medications and allergies were reviewed in the electronic medical record and reconciled to the proposed procedure/treatment. Allison-procedure discussion: The appropriate elements of the pre-procedure discussion, safety check list and sign-out were performed. Time out: A time out was performed immediately prior to procedure start with the nursing and interventional team, correctly identifying the name, date of , procedure, anatomy (including marking of site and side if applicable), patient position, procedure consent form, relevant diagnostic and radiology test results, antibiotic administration if applicable, safety precautions, and procedure-specific equipment needs. Start of procedure: 1124 End of procedure: 1137 Patient position: Supine Antibiotics: None Antibiotic infusion start time: N/A Prophylactic antibiotic administered: None Additional med: None Preparation (MIPS): The site was prepared and draped using all elements of maximal sterile barrier technique including sterile gloves, sterile gown, cap, mask, large sterile sheet, sterile ultrasound probe cover, hand hygiene and cutaneous antisepsis with 2% chlorhexidine. Medical reason for site preparation exception (MIPS): Not applicable Contrast Contrast agent: OMNIPAQUE 300 Contrast volume (mL): 27 Image Guidance Fluoroscopic and sonographic guidance was used. Ultrasound demonstrated patency of the target vein without filling defects. Access was obtained under direct sonographic visualization. A sonographic image of the vessel was obtained and placed into the permanent archive for documentation. FLUOROSCOPIC RADIATION SUMMARY: Plane A, Air Kerma: 29.4 mGy Dose Area Product (DAP): 10.9 Gy-cm2 Fluoro Time: 2:00 min:sec Radiation dose exceed 5 Gy: No If radiation dose exceeded 5 Gy, was counseling and instructional brochure provided: N/A Anesthesia/sedation Level of anesthesia/sedation: Moderate sedation (conscious sedation) Anesthesia/sedation administered by: Independent trained observer under attending supervision with continuous monitoring of the patient?s level of consciousness and physiologic status Total intra-service sedation time (minutes): 15 Local anesthesia: 1 % lidocaine Access Local anesthesia was administered. The vessel was sonographically evaluated and determined to be patent. Real time ultrasound was used to visualize needle entry into the vessel and a permanent image was stored. No sheath was placed. Vein accessed: Right internal jugular vein Access technique: Micropuncture set with 21 gauge needle Venography Venography of the inferior vena cava (IVC) was performed to assess filter position and evaluate for intra-filter thrombus. Catheter tip position for venography: Right common iliac vein Filter position: Infrarenal IVC Filter integrity: Intact Intra-filter thrombus: None Additional findings: Mildly leftward tilted filter. Filter retrieval The retrieval sheath was advanced. Retrieval sheath size(s): 11 F [id number] retrieval sheath The filter was captured, collapsed into the sheath, and removed in its entirety. Filter capture technique: Standard technique, employing the loop snare included in the filter retrieval kit Post-retrieval venography Post-retrieval venography of the IVC was performed. IVC patency post: Patent Additional findings: None Additional Details Additional description of proced (more content not included)... Normal [facility] IR INFERIOR CAVA VENOGRAM (A V,FV,CHRISTIAN,MM,UN)on 12-03-2022 [facility] PT panel Coag (PPP)on 2022 INR Coag (PPP) [Relative time] 1.0 {INR} Normal 0.9-1.3 [facility] Comment on above: Order Comment: Speci men Type: BLOOD SPECIMEN Ordering Facility: [facility] Address: [address] [place] [address] [place] [address] Result Comment: Paulina min K Antagonist (VKA) Therapeutic Range: INR 2 to 3 (Target INR of 2.5) Note: For patients treated with VKA drugs, such as warfarin, the [place] [employer] 2012 Guideline recommends a therapeutic INR range of 2 to 3 (target INR of 2.5). This recommendation includes high-risk patients with antiphospholipid syndrome with previous arterial or venous thromboembolism, current-generation mechanical or bioprosthetic aortic heart valve replacement. Note: Patients with mechanical aortic valve replacement and additional risk factors for thromboembolic events (atrial fibrillation, previous thromboembolism, LV dysfunction, hypercoagulable conditions) or an older generation mechanical AVR (i.e., ball in-Cage) or any mechanical MVR should have a INR therapeutic range of 2.5 to 3.5 (target INR of 3). Macrina MILLIGAN, et al. Chest 2012, 141:7S-47S Jose E SOLIS et al. [facility] 2017, 70: 252-289 Performed By: #### 3 4528-0 #### [facility] CLIA [id number] [address] STATES OF [facility] PT Coag (PPP) [Time] 10.9 s Normal 9.7-13.0 [facility] Comment on above: Order Comment: Howard pollard Type: BLOOD SPECIMEN Ordering Facility: [facility] Address: [address] [place] [address] Result Comment[facility] Performed By: #### 3 4528-0 #### [facility] CLIA [id number] [address] [place] INR Coag (PPP) [Relative time] 1.0 {INR} 0.9 - 1.3 [facility] PT Coag (PPP) [Time] 10.9 s 9.7 - 1 3.0 sec [facility] SURGICAL PATHOLOGYon 023 CASE REPORT Normal [facility] Comment on above: Order Comment: Howard pollard Type: TISSUE SPECIMEN Ordering Facility: [facility] Address: [address] [place] [address] Result Comment: Surg ical Pathology Report Case: [id number] Authorizing Provider: Justin William MD Collected: 12/03/2022 11:49 AM Ordering Location: [facility] Radiology Received: 12/03/2022 01:29 PM Pathologist: Alice Young MD Specimen: DEVICE Performed By: #### S #### [facility] CLIA [id number] [address] [place] [address] [place] CLINICAL HISTORY IVC filter Normal [facility] Comment on above: Order Comment: Speci men Type: TISSUE SPECIMEN Ordering Facility: [facility] Address: [address] [place] [address] Performed By: #### S #### [facility] CLIA [id number] [address] [place] [address] [place] FINAL DIAGNOSIS Normal [facility] Comment on above: Order Comment: Speci men Type: TISSUE SPECIMEN Ordering Facility: [facility] Address: [address] [place] [address] Result Comment: A. I nferior vena cava, hardware removal: - Vascular filter (gross examination only). CT/AKA 12/04/22 12:56 PM Performed By: #### S #### [facility] CLIA [id number] [address] [place] [address] [place] FINAL PERFORMING LAB Normal [facility] Comment on above: Order Comment: Speci men Type: TISSUE SPECIMEN Ordering Facility: [facility] Address: [address] [place] [address] Result Comment: Diag nostic interpretation performed at [facility], [address] [place] [address] CLIA# [id number] Set Decorator: Torey Walker M.D. Performed By: #### S #### [facility] CLIA [id number] [address] [place] [address] [place] GROSS DESCRIPTION A. DEVICE Normal [facility] Comment on above: Order Comment: Speci men Type: TISSUE SPECIMEN Ordering Facility: [facility] Address: [address] [place] [address] Result Comment: Rece ived in formalin, labeled "device" is a vascular filter composed of 6 struts, of equal length. The vascular filter is intact with a minimal amount of pink-red fibrous tissue present. A photograph is taken. No sections are submitted. The specimen is for gross examination only. The specimen is reviewed with Dr. Young. JADA December 04, 2022 10:37 AM Gross examination performed at [facility], [address] [place] [address], [place] [address] Performed By: #### S #### [facility] CLIA [id number] [address] [place] [address] [id number] Ayala 11-27-2022 [place] Telephone (MEX[place]) JAI LUNA ([id number]) 1950 M Date Time Provider Department 11/27/22 REBECCA YEH During your visit today, we recorded the following information about you: Rebecca Yeh RN 11/27/2022 2:47 PM Signed You are scheduled for a IVC Filter Removal, On 12/03/2022. You are to arrive at 0900 am for a 1030 procedure time and Report to [facility]: Entrance A, Elevators to first floor, Ambulatory surgery waiting area on first floor. You can expect to be here for 4-8 hours. Diet: Do not eat any solid food or drink liquids after midnight the day of/night before your procedure. Medications: Ok to take your cardiac, blood pressure, anti-seizure, and chronic pain medications with a sip of water, please take prior to arrival. Bring your current medication list. RADIOLOGY RECOMMENDS THESE MEDICATION RESTRICTIONS: Are you taking any of following medications? Coumadin. IFok with your Prescribing Provider: Stop Coumadin 5 days prior to this procedure. Contact [facility] for an INR of 1.5 or less for day of procedure. Splicer Apprentice/Transportation : How will you be arriving for your procedure? Private car. You will need a responsible adult to accompany you to and from the procedure. Your rolloff truck driver is required to stay with you until you are taken into the procedure room. Please call with any questions [phone] opt 2 to speak with the Radiology Nurses Allergies As of Date: 11/27/2022 Noted Allergy Reaction CAT DANDER 02/27/2022 14 - Other: See Comments CLINDAMYCIN 03/28/2021 8 - GI Upset CODEINE 06/20/2007 8 - GI Upset Date Reviewed: 11/03/2022 Reviewed by: Maddison Kohler RN - Fully Assessed Reason for Visit: Radiology Pre Procedure Instructions [6826] Prescriptions as of 11/27/2022 - warfarin (COUMADIN) 5 mg tablet 7.5 mg on and and 5 mg all other days. - Ostomy Supplies (SENSURA CLICK OSTOMY POUCH) misc 1 Each four times a week. Sensura one Piece Precut 1 in Convex - Ostomy Adhesive (STOMAHESIVE PASTE) pste 1 application four times a week. ConvaTec Brand - atorvastatin (LIPITOR) 40 mg tablet Take 1 tablet by mouth daily at bedtime. For cholesterol per [facility]. - coenzyme Q10 (COENZYME Q-10) 100 mg cap capsule Take 100 mg by mouth once daily. - Cholecalciferol, Vitamin D3, 50 mcg (2,000 unit) cap Take 1 capsule by mouth two times a week. Problem List As Of Date 11/27/2022 Noted Resolved Acoustic neuroma (HCC) [D33.3] 04/30/2021 Atherosclerosis of coronary artery bypass graft*01/18/2013 Bilateral carotid artery stenosis [I65.23] 04/30/2021 Cervical radiculopathy [M54.12] 04/30/2021 Dyslipidemia [E78.5] 01/16/2013 Essential hypertension [I10] 04/30/2021 04/06/2022 Hearing loss [H91.90] 04/30/2021 History of cardiac catheterization [Z98.890] 04/30/2021 History of myocardial infarction [I25.2] 08/29/1998 Status post coronary artery bypass graft [Z95.1]04/30/2021 Rectal malignant neoplasm (HCC) [C20] 05/29/2021 Obesity, Class I, BMI 30-34.9 [E66.9] 01/26/2022 04/06/2022 Rectal cancer (HCC) [C20] 01/27/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) [Z93.2] 01/28/2022 Postoperative pain [G89.18] 01/28/2022 02/24/2022 Intraabdominal hemorrhage [R58] 02/01/2022 02/24/2022 Respiratory insufficiency [R06.89] 02/01/2022 02/10/2022 FINESSE (acute kidney injury) (HCC) [N17.9] 02/03/2022 07/07/2022 Class: Acute Malnutrition of mild degree (HCC) [E44.1] 02/05/2022 05/22/2022 Obesity, Class II, BMI 35-39.9 [E66.9] 02/05/2022 04/06/2022 Urinary retention [R33.9] 2022 Hypophosphataemia [E83.39] 2022 02/24/2022 Hypokalemia [E87.6] 02/10/2022 Pulmonary embolism (HCC) [I26.99] 02/13/2022 Inadequate pain control [R52] 02/16/2022 02/18/2022 Pulmonary embolism and infarction (HCC) [I26.99]03/02/2022 Pre-op evaluation [Z01.818] 05/18/2022 07/07/2022 Acute deep vein thrombosis (DVT) of proximal ve*07/21/2022 Encounter Status:Closed by REBECCA YEH on 11/27/22 [facility] HBV surface Ab Ql (S)on 04-30 HBV surface Ab Qn (S) >=12.0 0 mIU/mL [facility] HEP B SURF ABon 05-20-2022 HBV surface Ab Ql (S) Positive Positive [facility] HEP B SURF AG SCRNon 023 HBV surface Ag Ql (S) Negative Negative [facility] XR COLON SINGLE CONTRASTon 0 05-20-2022 [facility] POTASSIUM BLDon 04-07-2022 Potassium [Moles/Vol] 5.3 mmol/L High 3.7 - 5.1 mmol/L [facility] CBC panel Auto (Bld)on 04-06 Erythrocyte distribution width (RBC) [Ratio] 17.0 % High 11.5 - 15.0 % [facility] Hematocrit (Bld) [Volume fraction] 43.2 % 39.0 - 51.0 % [facility] Hemoglobin (Bld) [Mass/Vol] 13.3 g/dL 13.0 - 17.0 g/dL [facility] MCH (RBC) [Entitic mass] 31.4 pg 26. 0 - 34.0 pg [facility] MCHC (RBC) [Mass/Vol] 30.8 g/dL 30.5 - 36.0 g/dL [facility] MCV (RBC) [Entitic vol] 101.9 fL High 80.0 - 100.0 fL [facility] Nucleated RBC (Bld) [#/Vol] <0.01 k/uL [facility] Platelet mean volume (Bld) [Entitic vol] 10.0 fL 9.0 - 12.7 fL [facility] Platelets (Bld) [#/Vol] 478 10*3/uL High 150 - 400 k/uL [facility] RBC (Bld) [#/Vol] 4.24 10*6/uL 4.20 - 6.0 0 m/uL [facility] WBC (Bld) [#/Vol] 8.48 10*3/uL 3.70 - 11. 00 k/uL [facility] Basic metabolic 2000 panelon 03-19-2022 Anion gap [Moles/Vol] 14 mmol/L 9 - 18 mmol/L [facility] Calcium [Mass/Vol] 9.2 mg/dL 8.5 - 10. 2 mg/dL [facility] Chloride [Moles/Vol] 104 mmol/L 97 - 10 5 mmol/L [facility] CO2 [Moles/Vol] 20 mmol/L Low 22 - 30 mmol/L [facility] Creatinine [Mass/Vol] 0.75 mg/dL 0.73 - 1.22 mg/dL [facility] Estimated Glomerular Filtration Rate 96 mL/min/1.73m >=60 mL/min/1.73m [facility] Glucose [Mass/Vol] 92 mg/dL 74 - 99 mg/dL [facility] Potassium [Moles/Vol] 4.3 mmol/L 3.7 - 5.1 mmol/L [facility] Sodium [Moles/Vol] 138 mmol/L 136 - 144 mmol/L [facility] Urea nitrogen [Mass/Vol] 17 mg/dL 9 - 24 mg/d L [facility] CBC panel Auto (Bld)on 03-18 Erythrocyte distribution width (RBC) [Ratio] 19.2 % High 11.5 - 15.0 % [facility] Hematocrit (Bld) [Volume fraction] 34.2 % Low 39.0 - 51.0 % [facility] Hemoglobin (Bld) [Mass/Vol] 10.2 g/dL Low 13.0 - 17.0 g/dL [facility] MCH (RBC) [Entitic mass] 31.1 pg 26. 0 - 34.0 pg [facility] MCHC (RBC) [Mass/Vol] 29.8 g/dL Low 30.5 - 36.0 g/dL [facility] MCV (RBC) [Entitic vol] 104.3 fL High 80.0 - 100.0 fL [facility] Nucleated RBC (Bld) [#/Vol] <0.01 k/uL [facility] Platelet mean volume (Bld) [Entitic vol] 9.6 fL 9.0 - 12.7 fL [facility] Platelets (Bld) [#/Vol] 487 10*3/uL High 150 - 400 k/uL [facility] RBC (Bld) [#/Vol] 3.28 10*6/uL Low 4.20 - 6.0 0 m/uL [facility] WBC (Bld) [#/Vol] 7.81 10*3/uL 3.70 - 11. 00 k/uL [facility] Influenza virus A and B and SARS-CoV-2 (COVID-19) Ag panel - Upper respiratory specimOrdered By: Dr. Avery on 03-02-2022 SARS-CoV-2 (COVID-19) RNA RODGER+probe Ql (Resp) [facility] Absolute lymphocyte countOrd ered By: ED PROVIDER on 03-01-2022 Lymphocytes Auto (Unsp spec) [#/Vol] 1.14 10*3/uL 0.83-4.51 [facility] Basophil percentageOrdered B y: ED PROVIDER on 03-01-2022 Basophils/100 WBC (Bld) 0.5 % 0-1 [facility] Chloride [Moles/Vol] 107 mmol/L 98-107 [facility] Eosinophils/100 WBC (Bld) 1.6 % 0-5 [facility] Glucose [Mass/Vol] 125 mg/dL 74-106 [facility] Comment on above: Fasting Glucose resu lt from 100 to 125 mg/dL suggests IMPAIRED HOMEOSTASIS per A.D.A. criteria. Neutrophils (Bld) [#/Vol] 8.5 10*3/uL 2.0-7.7 [facility] Neutrophils/100 WBC (Bld) 75.2 % 47-70 [facility] Potassium [Moles/Vol] 3.8 mmol/L 3.5-5.1 [facility] Comment on above: Slight Hemolysis, Re sult may be falsely increased. Sodium [Moles/Vol] 138 mmol/L 136-145 [facility] WBC (Bld) [#/Vol] 11.3 10*3/uL 4.4-11.0 [facility] Basophil percentageOrdered B y: Dr. Turpin on 03-01-2022 Bilirubin [Mass/Vol] 1.00 mg/dL 0.20-1.00 [facility] Comment on above: For patients on eltr ombopag therapy, use of [facility] TBIL is not recommended. Protein [Mass/Vol] 6.9 g/dL 6.4-8.2 [facility] Blood erythrocytes count (nu mber/volume)Ordered By: ED PROVIDER on 03-01-2022 RBC (Bld) [#/Vol] 3.75 10*6/uL 4.6-6.2 [facility] Blood hemoglobin measurement (mass/volume)Ordered By: ED PROVIDER on 03-01-2022 Hemoglobin (Bld) [Mass/Vol] 11.3 g/dL 13.0-16.5 [facility] Blood lymphocytes/100 leukoc ytesOrdered By: ED PROVIDER on 03-01-2022 Lymphocytes/100 WBC (Bld) 10.1 % 19-41 [facility] Blood monocytes/100 leukocyt esOrdered By: ED PROVIDER on 03-01-2022 Monocytes/100 WBC (Bld) 10.7 % 0-10 [facility] Blood platelet mean volumeOr dered By: ED PROVIDER on 03-01-2022 Platelet mean volume (Bld) [Entitic vol] 9.6 fL 6.2-12.0 [facility] Determination of erythrocyte mean corpuscular volume (MCV)Ordered By: ED PROVIDER on 03-01-2022 MCV (RBC) [Entitic vol] 95.5 fL 80-94 [facility] Direct bilirubinOrdered By: Dr. Turpin on 03-01-2022 Bilirubin.direct [Mass/Vol] 0.28 mg/dL 0.00-0.30 [facility] Hematocrit Auto (Bld) [Volum e fraction]Ordered By: ED PROVIDER on 03-01-2022 Hematocrit (Bld) [Volume fraction] 35.8 % 40-54 [facility] INR in Blood by Coagulation assayOrdered By: Dr. Turpin on 03-01-2022 INR Coag (Bld) [Relative time] 1.3 {INR} [facility] - Chemistry and C hemistry - challengeOrdered By: Dr. Turpin on 03-01-2022 ALP [Catalytic activity/Vol] 109 U/L 45-117 [facility] ALT [Catalytic activity/Vol] 46 U/L 16-61 [facility] Globulin (S) [Mass/Vol] 3.9 g/dL 2.2-4.2 [facility] - Chemistry and C hemistry - challengeOrdered By: ED PROVIDER on 03-01-2022 CO2 [Moles/Vol] 25.0 mmol/L 21.0-32.0 [facility] Urea nitrogen/Creatinine [Mass ratio] 18.0 mg/mg 10-20 [facility] - CoagulationOrde red By: Dr. Turpin on 03-01-2022 aPTT Coag (Bld) [Time] 30.2 s 24.1-36.2 [facility] PT Coag (PPP) [Time] 15.6 s 11.7-14.9 [facility] Laboratory - Hematology and Cell countsOrdered By: ED PROVIDER on 03-01-2022 Erythrocyte distribution width (RBC) [Entitic vol] 60.0 fL 35.1-43.9 [facility] Erythrocyte distribution width (RBC) [Ratio] 17.5 % 11.6-14.6 [facility] Immature granulocytes/100 WBC (Bld) 1.900 % 0.0-0.9 [facility] Comment on above: IG% - Immature Granu locytes (promyelocytes, myelocytes and metamyelocytes) > 1% indicates that a LEFT SHIFT is Present. MCH (RBC) [Entitic mass] 30.1 pg 27.0-32.0 [facility] Nucleated RBC/100 WBC (Bld) [Ratio] 0 % 0-5 [facility] MCHC Auto (RBC) [Mass/Vol]Or dered By: ED PROVIDER on 03-01-2022 MCHC (RBC) [Mass/Vol] 31.6 g/dL 32-36 [facility] No Panel InformationOrdered By: ED PROVIDER on 03-01-2022 Estimated Creatinine Clearance Calc 63.43 ml/min [facility] Estimated GFR (MDRD) Amer 101 mL/min >60 [facility] Comment on above: GFR Calc Estimated GFR (MDRD) Non-Af Amer 83 mL/min >60 [facility] Comment on above: Non- GFR Calc Platelets bldOrdered By: ED PROVIDER on 03-01-2022 Platelets (Bld) [#/Vol] 398 10*3/uL 150-450 [facility] Serum or plasma albumin shae urement (mass/volume)Ordered By: Dr. Turpin on 03-01-2022 Albumin [Mass/Vol] 3.0 g/dL 3.2-5.0 [facility] Serum or plasma calcium shae urement (mass/volume)Ordered By: ED PROVIDER on 03-01-2022 Calcium [Mass/Vol] 8.1 mg/dL 8.5-10.1 [facility] Serum or plasma creatinine m easurement (mass/volume)Ordered By: ED PROVIDER on 03-01-2022 Creatinine [Mass/Vol] 0.95 mg/dL 0.70-1.30 [facility] Comment on above: The validity of the calculated GFR & GFRAA in patients over 70 years has not been determined. Clinical correlation is essential. Serum or plasma urea nitroge n measurement (mass/volume)Ordered By: ED PROVIDER on 03-01-2022 Urea nitrogen [Mass/Vol] 17 mg/dL 7-18 [facility] Thin prep Papanicolaou smear with manual screeningOrdered By: Dr. Turpin on 03-01-2022 Thin prep Papanicolaou smear with manual screening 67 U/L 15-37 [facility] Comment on above: Slight Hemolysis, Re sult may be falsely increased. Thin prep Papanicolaou smear with manual screeningOrdered By: ED PROVIDER on 03-01-2022 Thin prep Papanicolaou smear with manual screening 6 5-15 [facility] Absolute lymphocyte countOrd ered By: Dr. Villafana on 02-27-2022 Lymphocytes Auto (Unsp spec) [#/Vol] 1.26 10*3/uL 0.83-4.51 [facility] Basophil percentageOrdered B y: Dr. Villafana on 02-27-2022 Basophils/100 WBC (Bld) 0.7 % 0-1 [facility] Chloride [Moles/Vol] 106 mmol/L 98-107 [facility] Eosinophils/100 WBC (Bld) 3.2 % 0-5 [facility] Glucose [Mass/Vol] 104 mg/dL 74-106 [facility] Comment on above: Fasting Glucose resu lt from 100 to 125 mg/dL suggests IMPAIRED HOMEOSTASIS per A.D.A. criteria. Neutrophils (Bld) [#/Vol] 7.2 10*3/uL 2.0-7.7 [facility] Neutrophils/100 WBC (Bld) 65.8 % 47-70 [facility] Potassium [Moles/Vol] 3.5 mmol/L 3.5-5.1 [facility] Sodium [Moles/Vol] 137 mmol/L 136-145 [facility] WBC (Bld) [#/Vol] 10.9 10*3/uL 4.4-11.0 [facility] Blood erythrocytes count (nu mber/volume)Ordered By: Dr. Villafana on 02-27-2022 RBC (Bld) [#/Vol] 3.21 10*6/uL 4.6-6.2 [facility] Blood hemoglobin measurement (mass/volume)Ordered By: Dr. Villafana on 02-27-2022 Hemoglobin (Bld) [Mass/Vol] 9.6 g/dL 13.0-16.5 [facility] Blood lymphocytes/100 leukoc ytesOrdered By: Dr. Villafana on 02-27-2022 Lymphocytes/100 WBC (Bld) 11.5 % 19-41 [facility] Blood manual differential co mment interpretation (narrative result)Ordered By: Dr. Villafana on 02-27-2022 Manual differential comment Glenn (Bld) [Interp] SCANNED [facility] Blood monocytes/100 leukocyt esOrdered By: Dr. Villafana on 02-27-2022 Monocytes/100 WBC (Bld) 14.3 % 0-10 [facility] Blood platelet mean volumeOr dered By: Dr. Villafana on 02-27-2022 Platelet mean volume (Bld) [Entitic vol] 9.3 fL 6.2-12.0 [facility] Determination of erythrocyte mean corpuscular volume (MCV)Ordered By: Dr. Villafana on 02-27-2022 MCV (RBC) [Entitic vol] 95.6 fL 80-94 [facility] Hematocrit Auto (Bld) [Volum e fraction]Ordered By: Dr. Villafana on 02-27-2022 Hematocrit (Bld) [Volume fraction] 30.7 % 40-54 [facility] - Chemistry and C hemistry - challengeOrdered By: Dr. Villafana on 02-27-2022 CO2 [Moles/Vol] 25.0 mmol/L 21.0-32.0 [facility] Urea nitrogen/Creatinine [Mass ratio] 23.0 mg/mg 10-20 [facility] - Hematology and Cell countsOrdered By: Dr. Villafana on 02-27-2022 Erythrocyte distribution width (RBC) [Entitic vol] 59.3 fL 35.1-43.9 [facility] Erythrocyte distribution width (RBC) [Ratio] 17.0 % 11.6-14.6 [facility] Immature granulocytes/100 WBC (Bld) 4.500 % 0.0-0.9 [facility] Comment on above: IG% - Immature Granu locytes (promyelocytes, myelocytes and metamyelocytes) > 1% indicates that a LEFT SHIFT is Present. MCH (RBC) [Entitic mass] 29.9 pg 27.0-32.0 [facility] Nucleated RBC/100 WBC (Bld) [Ratio] 0 % 0-5 [facility] MCHC Auto (RBC) [Mass/Vol]Or dered By: Dr. Villafana on 02-27-2022 MCHC (RBC) [Mass/Vol] 31.3 g/dL 32-36 [facility] No Panel InformationOrdered By: Dr. Villafana on 02-27-2022 Estimated Creatinine Clearance Calc 60.26 ml/min [facility] Estimated GFR (MDRD) Amer 144 mL/min >60 [facility] Comment on above: GFR Calc Estimated GFR (MDRD) Non-Af Amer 119 mL/min >60 [facility] Comment on above: Non- GFR Calc Platelets bldOrdered By: Dr. Villafana on 02-27-2022 Platelets (Bld) [#/Vol] 369 10*3/uL 150-450 [facility] Serum or plasma calcium shae urement (mass/volume)Ordered By: Dr. Villafana on 02-27-2022 Calcium [Mass/Vol] 7.7 mg/dL 8.5-10.1 [facility] Serum or plasma creatinine m easurement (mass/volume)Ordered By: Dr. Villafana on 02-27-2022 Creatinine [Mass/Vol] 0.70 mg/dL 0.70-1.30 [facility] Comment on above: The validity of the calculated GFR & GFRAA in patients over 70 years has not been determined. Clinical correlation is essential. Serum or plasma urea nitroge n measurement (mass/volume)Ordered By: Dr. Villafana on 02-27-2022 Urea nitrogen [Mass/Vol] 16 mg/dL 7-18 [facility] Thin prep Papanicolaou smear with manual screeningOrdered By: Dr. Villafana on 02-27-2022 Thin prep Papanicolaou smear with manual screening 6 5-15 [facility] - Microbiology an d Antimicrobial susceptibilityOrdered By: Dr. Salazar on 02-06-2022 Bacteria identified Cx Nom (Bld) No growth in 5 days. [facility] Absolute lymphocyte countOrd ered By: Dr. Salazar on 02-01-2022 Lymphocytes Auto (Unsp spec) [#/Vol] 3.22 10*3/uL 0.83-4.51 [facility] Basophil percentageOrdered B y: Dr. Salazar on 02-01-2022 Basophil percentage 0 SEEN /hpf 0-5 [facility] Basophils/100 WBC (Bld) 0.5 % 0-1 [facility] Bilirubin [Mass/Vol] 0.70 mg/dL 0.20-1.00 [facility] Comment on above: For patients on eltr ombopag therapy, use of Dimension [facility] TBIL is not recommended. Chloride [Moles/Vol] 104 mmol/L 98-107 [facility] Eosinophils/100 WBC (Bld) 3.3 % 0-5 [facility] Glucose [Mass/Vol] 261 mg/dL 74-106 [facility] Comment on above: Glucose result great er than or equal to 200 mg/dLsuggests DIABETES MELLITUS per A.D.A. criteria. Lactate [Moles/Vol] 8.7 mmol/L 0.4-2.0 [facility] Neutrophils (Bld) [#/Vol] 5.9 10*3/uL 2.0-7.7 [facility] Neutrophils/100 WBC (Bld) 53.2 % 47-70 [facility] Potassium [Moles/Vol] 3.4 mmol/L 3.5-5.1 [facility] Protein [Mass/Vol] 5.4 g/dL 6.4-8.2 [facility] Sodium [Moles/Vol] 136 mmol/L 136-145 [facility] WBC (Bld) [#/Vol] 11.1 10*3/uL 4.4-11.0 [facility] Bilirubin Test strip Ql (U)O rdered By: Dr. Salazar on 02-01-2022 Bilirubin Ql (U) Negative Negative [facility] Blood erythrocytes count (nu mber/volume)Ordered By: Dr. Salazar on 02-01-2022 RBC (Bld) [#/Vol] 3.26 10*6/uL 4.6-6.2 [facility] Blood hemoglobin measurement (mass/volume)Ordered By: Dr. Salazar on 02-01-2022 Hemoglobin (Bld) [Mass/Vol] 10.6 g/dL 13.0-16.5 [facility] Blood lymphocytes/100 leukoc ytesOrdered By: Dr. Salazar on 02-01-2022 Lymphocytes/100 WBC (Bld) 29.1 % 19-41 [facility] Blood monocytes/100 leukocyt esOrdered By: Dr. Salazar on 02-01-2022 Monocytes/100 WBC (Bld) 9.7 % 0-10 [facility] Blood platelet mean volumeOr dered By: Dr. Salazar on 02-01-2022 Platelet mean volume (Bld) [Entitic vol] 10.4 fL 6.2-12.0 [facility] COVID-19 virus antigen assay Ordered By: Dr. Saalzar on 02-01-2022 SARS-CoV-2 (COVID-19) Ag IA.rapid Ql (Resp) [facility] Determination of erythrocyte mean corpuscular volume (MCV)Ordered By: Dr. Salazar on 02-01-2022 MCV (RBC) [Entitic vol] 100.9 fL 80-94 [facility] Direct bilirubinOrdered By: Dr. Salazar on 02-01-2022 Bilirubin.direct [Mass/Vol] 0.17 mg/dL 0.00-0.30 [facility] Hematocrit Auto (Bld) [Volum e fraction]Ordered By: Dr. Salazar on 02-01-2022 Hematocrit (Bld) [Volume fraction] 32.9 % 40-54 [facility] INR in Blood by Coagulation assayOrdered By: Dr. Salazar on 02-01-2022 INR Coag (Bld) [Relative time] 1.3 {INR} [facility] Ketones Test strip Ql (U)Ord ered By: Dr. Salazar on 02-01-2022 Ketones Ql (U) Negative Negative [facility] Laboratory - Chemistry and C hemistry - challengeOrdered By: Dr. Salazar on 02-01-2022 ALP [Catalytic activity/Vol] 58 U/L 45-117 [facility] ALT [Catalytic activity/Vol] 20 U/L 16-61 [facility] CO2 [Moles/Vol] 18.0 mmol/L 21.0-32.0 [facility] Globulin (S) [Mass/Vol] 3.0 g/dL 2.2-4.2 [facility] Lipase [Catalytic activity/Vol] 116 U/L 73-393 [facility] Urea nitrogen/Creatinine [Mass ratio] 13.7 mg/mg 10-20 [facility] Laboratory - CoagulationOrde red By: Dr. Salazar on 02-01-2022 aPTT Coag (Bld) [Time] 23.8 s 24.1-36.2 [facility] PT Coag (PPP) [Time] 15.9 s 11.7-14.9 [facility] Laboratory - Hematology and Cell countsOrdered By: Dr. Salazar on 02-01-2022 Erythrocyte distribution width (RBC) [Entitic vol] 47.9 fL 35.1-43.9 [facility] Erythrocyte distribution width (RBC) [Ratio] 12.9 % 11.6-14.6 [facility] Immature granulocytes/100 WBC (Bld) 4.200 % 0.0-0.9 [facility] Comment on above: IG% - Immature Granu locytes (promyelocytes, myelocytes and metamyelocytes) > 1% indicates that a LEFT SHIFT is Present. MCH (RBC) [Entitic mass] 32.5 pg 27.0-32.0 [facility] Nucleated RBC/100 WBC (Bld) [Ratio] 0 % 0-5 [facility] MCHC Auto (RBC) [Mass/Vol]Or dered By: Dr. Salazar on 02-01-2022 MCHC (RBC) [Mass/Vol] 32.2 g/dL 32-36 [facility] Mucus LM Ql (Urine sed)Order ed By: Dr. Salazar on 02-01-2022 Mucus Ql (Urine sed) 0 SEEN /hpf [facility] Nitrite Test strip Ql (U)Ord ered By: Dr. Salazar on 02-01-2022 Nitrite Ql (U) Negative Negative [facility] No Panel InformationOrdered By: Dr. Salazar on 02-01-2022 Estimated Creatinine Clearance Calc 34.94 ml/min [facility] Estimated GFR (MDRD) Amer 50 mL/min >60 [facility] Comment on above: GFR Calc Estimated GFR (MDRD) Non-Af Amer 41 mL/min >60 [facility] Comment on above: Non- GFR Calc Troponin I High Sensitivity 10 pg/mL 3.0-78.0 [facility] Comment on above: Please Note: New Adriane t Units and Gender Specific Reference Ranges. For more information see Policy Stat Procedure [facility] High Sensitivity Troponin (TNIH) and attachments. Platelets bldOrdered By: Dr. Salazar on 02-01-2022 Platelets (Bld) [#/Vol] 220 10*3/uL 150-450 [facility] Protein Test strip Ql (U)Ord ered By: Dr. Salazar on 02-01-2022 Protein Ql (U) 15 mg/dl Negative [facility] Serum or plasma albumin shae urement (mass/volume)Ordered By: Dr. Salazar on 02-01-2022 Albumin [Mass/Vol] 2.4 g/dL 3.2-5.0 [facility] Serum or plasma calcium shae urement (mass/volume)Ordered By: Dr. Salazar on 02-01-2022 Calcium [Mass/Vol] 7.8 mg/dL 8.5-10.1 [facility] Serum or plasma creatinine m easurement (mass/volume)Ordered By: Dr. Salazar on 02-01-2022 Creatinine [Mass/Vol] 1.75 mg/dL 0.70-1.30 [facility] Comment on above: The validity of the calculated GFR & GFRAA in patients over 70 years has not been determined. Clinical correlation is essential. Serum or plasma urea nitroge n measurement (mass/volume)Ordered By: Dr. Salazar on 02-01-2022 Urea nitrogen [Mass/Vol] 24 mg/dL 7-18 [facility] Squamous epithelial cells de tection in urine sediment by light microscopyOrdered By: Dr. Salazar on 02-01-2022 Epithelial cells.squamous LM Ql (Urine sed) 0 SEEN /hpf 0-5 [facility] Thin prep Papanicolaou smear with manual screeningOrdered By: Dr. Salazar on 02-01-2022 Thin prep Papanicolaou smear with manual screening 17 U/L 15-37 [facility] Thin prep Papanicolaou smear with manual screening 14 5-15 [facility] Urine blood detectionOrdered By: Dr. Salazar on 02-01-2022 RBC Ql (U) Negative Negative [facility] RBC Ql (U) 0 SEEN /hpf 0-5 [facility] Urine clarityOrdered By: Dr. Salazar on 02-01-2022 Clarity (U) Clear Clear [facility] Urine color determinationOrd ered By: Dr. Salazar on 02-01-2022 Color (U) Yellow Yellow [facility] Urine glucose detectionOrder ed By: Dr. Salazar on 02-01-2022 Glucose Ql (U) Normal mg/dl Normal [facility] Urine leukocyte esterase det ection by dipstickOrdered By: Dr. Salazar on 02-01-2022 Leukocyte esterase Test strip Ql (U) Negative Negative [facility] Urine pHOrdered By: Dr. Blanka carroll on 02-01-2022 pH (U) 5.0 [pH] 5.0 - 8.0 [facility] Urine sediment bacteria coun t by microscopy (number/high power field)Ordered By: Dr. Salazar on 02-01-2022 Bacteria LM.HPF (Urine sed) [#/Area] 0 /[HPF] None Seen [facility] Urine specific gravity measu rementOrdered By: Dr. Salazar on 02-01-2022 Specific gravity (U) [Rel density] 1.025 1.002-1.030 [facility] Urobilinogen Auto test strip Ql (U)Ordered By: Dr. Salazar on 02-01-2022 Urobilinogen Ql (U) Normal mg/dl Normal [facility] NT PRO BNPon 01-07-2022 Natriuretic peptide.B prohormone N-Terminal [Mass/Vol] 139 pg/mL High <125 pg/mL [facility] No Panel Informationon 01-07 [facility] TROPONIN Ton 01-07-2022 Troponin T.cardiac [Mass/Vol] 0.000 - 0.029 ng/mL [facility] SIGMOIDOSCOPYon 09-17-2021 [facility] CBC W Auto Differential pane l (Bld)on 07-07-2021 Abs Immature Gran 0.03 k/uL <0.10 k/uL [facility] Basophils (Bld) [#/Vol] 10*3/uL <0.11 k/uL [facility] Basophils/100 WBC (Bld) 0.5 % [facility] Differential cell count method Nom (Bld) Auto [facility] Eosinophils (Bld) [#/Vol] 0.07 10*3/uL <0.46 k/uL [facility] Eosinophils/100 WBC (Bld) 1.7 % [facility] Erythrocyte distribution width (RBC) [Ratio] 14.9 % 11.5 - 15.0 % [facility] Hematocrit (Bld) [Volume fraction] 38.0 % Low 39.0 - 51.0 % [facility] Hemoglobin (Bld) [Mass/Vol] 13.1 g/dL 13.0 - 17.0 g/dL [facility] Immature Gran % 0.7 % [facility] Lymphocytes (Bld) [#/Vol] 0.47 10*3/uL Low 1.00 - 4.00 k/uL [facility] Lymphocytes/100 WBC (Bld) 11.6 % [facility] MCH (RBC) [Entitic mass] 32.7 pg 26. 0 - 34.0 pg [facility] MCHC (RBC) [Mass/Vol] 34.5 g/dL 30.5 - 36.0 g/dL [facility] MCV (RBC) [Entitic vol] 94.8 fL 80.0 - 100.0 fL [facility] Monocytes (Bld) [#/Vol] 0.72 10*3/uL <0.87 k/uL [facility] Monocytes/100 WBC (Bld) 17.7 % [facility] Neutrophils (Bld) [#/Vol] 2.75 10*3/uL 1.45 - 7.50 k/uL [facility] Neutrophils/100 WBC (Bld) 67.8 % [facility] Nucleated RBC (Bld) [#/Vol] 10*3/uL <0.01 k/uL [facility] Nucleated RBC/100 WBC (Bld) [Ratio] 0.0 /100 WBC [facility] Platelet mean volume (Bld) [Entitic vol] 9.1 fL 9.0 - 12.7 fL [facility] Platelets (Bld) [#/Vol] 112 10*3/uL Low 150 - 400 k/uL [facility] RBC (Bld) [#/Vol] 4.01 10*6/uL Low 4.20 - 6.0 0 m/uL [facility] WBC (Bld) [#/Vol] 4.06 10*3/uL 3.70 - 11. 00 k/uL [facility] Comprehensive metabolic 2000 panelon 07-07-2021 Albumin [Mass/Vol] 4.3 g/dL 3.9 - 4.9 g/dL [facility] ALP [Catalytic activity/Vol] 86 U/L 38 - 113 U/L [facility] ALT [Catalytic activity/Vol] 30 U/L 10 - 54 U/L [facility] Anion gap [Moles/Vol] 8 mmol/L Low 9 - 18 mmol/L [facility] AST [Catalytic activity/Vol] 35 U/L 14 - 40 U/L [facility] Bilirubin [Mass/Vol] 0.3 mg/dL 0.2 - 1 .3 mg/dL [facility] Calcium [Mass/Vol] 8.7 mg/dL 8.5 - 10. 2 mg/dL [facility] Chloride [Moles/Vol] 105 mmol/L 97 - 10 5 mmol/L [facility] CO2 [Moles/Vol] 26 mmol/L 22 - 30 mmol/L [facility] Creatinine [Mass/Vol] 0.88 mg/dL 0.73 - 1.22 mg/dL [facility] Estimated Glomerular Filtration Rate 92 mL/min/1.73m >=60 mL/min/1.73m [facility] Glucose [Mass/Vol] 97 mg/dL 74 - 99 mg/dL [facility] Potassium [Moles/Vol] 3.9 mmol/L 3.7 - 5.1 mmol/L [facility] Protein [Mass/Vol] 6.8 g/dL 6.3 - 8.0 g/dL [facility] Sodium [Moles/Vol] 139 mmol/L 136 - 144 mmol/L [facility] Urea nitrogen [Mass/Vol] 12 mg/dL 9 - 24 mg/d L [facility] MAGNESIUM BLDon 07-07-2021 Magnesium [Mass/Vol] 2.1 mg/dL 1.7 - 2 .3 mg/dL [facility] CBC W Auto Differential pane l (Bld)on 06-30-2021 Abs Immature Gran 0.03 k/uL <0.10 [facility] Basophils (Bld) [#/Vol] 10*3/uL <0.11 k/uL [facility] Basophils/100 WBC (Bld) 0.6 % [facility] Differential cell count method Nom (Bld) Auto [facility] Eosinophils (Bld) [#/Vol] 0.10 10*3/uL <0.46 k/uL [facility] Eosinophils/100 WBC (Bld) 3.1 % [facility] Erythrocyte distribution width (RBC) [Ratio] 13.9 % 11.5 - 15.0 % [facility] Hematocrit (Bld) [Volume fraction] 38.9 % Low 39.0 - 51.0 % [facility] Hemoglobin (Bld) [Mass/Vol] 12.9 g/dL Low 13.0 - 17.0 g/dL [facility] Immature Gran % 0.9 % [facility] Lymphocytes (Bld) [#/Vol] 0.52 10*3/uL Low 1.00 - 4.00 k/uL [facility] Lymphocytes/100 WBC (Bld) 16.0 % [facility] MCH (RBC) [Entitic mass] 31.9 pg 26. 0 - 34.0 pg [facility] MCHC (RBC) [Mass/Vol] 33.2 g/dL 30.5 - 36.0 g/dL [facility] MCV (RBC) [Entitic vol] 96.0 fL 80.0 - 100.0 fL [facility] Monocytes (Bld) [#/Vol] 0.68 10*3/uL <0.87 k/uL [facility] Monocytes/100 WBC (Bld) 20.9 % [facility] Neutrophils (Bld) [#/Vol] 1.91 10*3/uL 1.45 - 7.50 k/uL [facility] Neutrophils/100 WBC (Bld) 58.5 % [facility] Nucleated RBC (Bld) [#/Vol] 10*3/uL <0.01 k/uL [facility] Nucleated RBC/100 WBC (Bld) [Ratio] 0.0 /100 WBC [facility] Platelet mean volume (Bld) [Entitic vol] 9.2 fL 9.0 - 12.7 fL [facility] Platelets (Bld) [#/Vol] 107 10*3/uL Low 150 - 400 k/uL [facility] RBC (Bld) [#/Vol] 4.05 10*6/uL Low 4.20 - 6.0 0 m/uL [facility] WBC (Bld) [#/Vol] 3.26 10*3/uL Low 3.70 - 11. 00 k/uL [facility] Comprehensive metabolic 2000 panelon 06-30-2021 Albumin [Mass/Vol] 4.1 g/dL 3.9 - 4.9 g/dL [facility] ALP [Catalytic activity/Vol] 91 U/L 38 - 113 U/L [facility] ALT [Catalytic activity/Vol] 22 U/L 10 - 54 U/L [facility] Anion gap [Moles/Vol] 7 mmol/L Low 9 - 18 mmol/L [facility] AST [Catalytic activity/Vol] 28 U/L 14 - 40 U/L [facility] Bilirubin [Mass/Vol] 0.3 mg/dL 0.2 - 1 .3 mg/dL [facility] Calcium [Mass/Vol] 8.4 mg/dL Low 8.5 - 10. 2 mg/dL [facility] Chloride [Moles/Vol] 107 mmol/L High 97 - 10 5 mmol/L [facility] CO2 [Moles/Vol] 25 mmol/L 22 - 30 mmol/L [facility] Creatinine [Mass/Vol] 0.82 mg/dL 0.73 - 1.22 mg/dL [facility] Estimated Glomerular Filtration Rate 94 mL/min/1.73m >=60 mL/min/1.73m [facility] Glucose [Mass/Vol] 103 mg/dL High 74 - 99 mg/dL [facility] Potassium [Moles/Vol] 4.1 mmol/L 3.7 - 5.1 mmol/L [facility] Protein [Mass/Vol] 6.5 g/dL 6.3 - 8.0 g/dL [facility] Sodium [Moles/Vol] 139 mmol/L 136 - 144 mmol/L [facility] Urea nitrogen [Mass/Vol] 11 mg/dL 9 - 24 mg/d L [facility] MAGNESIUM BLDon 06-30-2021 Magnesium [Mass/Vol] 2.1 mg/dL 1.7 - 2 .3 mg/dL [facility] CBC W Auto Differential pane l (Bld)on 06-23-2021 Abs Immature Gran <0.03 <0.10 k/uL [facility] Basophils (Bld) [#/Vol] 10*3/uL <0.11 k/uL [facility] Basophils/100 WBC (Bld) 0.3 % [facility] Differential cell count method Nom (Bld) Auto [facility] Eosinophils (Bld) [#/Vol] 0.10 10*3/uL <0.46 k/uL [facility] Eosinophils/100 WBC (Bld) 2.7 % [facility] Erythrocyte distribution width (RBC) [Ratio] 13.2 % 11.5 - 15.0 % [facility] Hematocrit (Bld) [Volume fraction] 39.1 % 39.0 - 51.0 % [facility] Hemoglobin (Bld) [Mass/Vol] 13.0 g/dL 13.0 - 17.0 g/dL [facility] Immature Gran % 0.3 % [facility] Lymphocytes (Bld) [#/Vol] 0.90 10*3/uL Low 1.00 - 4.00 k/uL [facility] Lymphocytes/100 WBC (Bld) 24.7 % [facility] MCH (RBC) [Entitic mass] 31.9 pg 26. 0 - 34.0 pg [facility] MCHC (RBC) [Mass/Vol] 33.2 g/dL 30.5 - 36.0 g/dL [facility] MCV (RBC) [Entitic vol] 95.8 fL 80.0 - 100.0 fL [facility] Monocytes (Bld) [#/Vol] 0.67 10*3/uL <0.87 k/uL [facility] Monocytes/100 WBC (Bld) 18.4 % [facility] Neutrophils (Bld) [#/Vol] 1.96 10*3/uL 1.45 - 7.50 k/uL [facility] Neutrophils/100 WBC (Bld) 53.6 % [facility] Nucleated RBC (Bld) [#/Vol] 10*3/uL <0.01 k/uL [facility] Nucleated RBC/100 WBC (Bld) [Ratio] 0.0 /100 WBC [facility] Platelet mean volume (Bld) [Entitic vol] 9.7 fL 9.0 - 12.7 fL [facility] Platelets (Bld) [#/Vol] 169 10*3/uL 150 - 400 k/uL [facility] RBC (Bld) [#/Vol] 4.08 10*6/uL Low 4.20 - 6.0 0 m/uL [facility] WBC (Bld) [#/Vol] 3.65 10*3/uL Low 3.70 - 11. 00 k/uL [facility] Comprehensive metabolic 2000 panelon 06-23-2021 Albumin [Mass/Vol] 4.0 g/dL 3.9 - 4.9 g/dL [facility] ALP [Catalytic activity/Vol] 89 U/L 38 - 113 U/L [facility] ALT [Catalytic activity/Vol] 18 U/L 10 - 54 U/L [facility] Anion gap [Moles/Vol] 11 mmol/L 9 - 18 mmol/L [facility] AST [Catalytic activity/Vol] 25 U/L 14 - 40 U/L [facility] Bilirubin [Mass/Vol] 0.3 mg/dL 0.2 - 1 .3 mg/dL [facility] Calcium [Mass/Vol] 8.6 mg/dL 8.5 - 10. 2 mg/dL [facility] Chloride [Moles/Vol] 105 mmol/L 97 - 10 5 mmol/L [facility] CO2 [Moles/Vol] 25 mmol/L 22 - 30 mmol/L [facility] Creatinine [Mass/Vol] 0.81 mg/dL 0.73 - 1.22 mg/dL [facility] Estimated Glomerular Filtration Rate 94 mL/min/1.73m >=60 mL/min/1.73m [facility] Glucose [Mass/Vol] 83 mg/dL 74 - 99 mg/dL [facility] Potassium [Moles/Vol] 3.8 mmol/L 3.7 - 5.1 mmol/L [facility] Protein [Mass/Vol] 6.5 g/dL 6.3 - 8.0 g/dL [facility] Sodium [Moles/Vol] 141 mmol/L 136 - 144 mmol/L [facility] Urea nitrogen [Mass/Vol] 13 mg/dL 9 - 24 mg/d L [facility] MAGNESIUM BLDon 06-23-2021 Magnesium [Mass/Vol] 2.1 mg/dL 1.7 - 2 .3 mg/dL [facility] CBC W Auto Differential pane l (Bld)on 06-16-2021 Abs Immature Gran 0.03 k/uL <0.10 k/uL [facility] Basophils (Bld) [#/Vol] 0.03 10*3/uL <0.11 k/uL [facility] Basophils/100 WBC (Bld) 0.6 % [facility] Differential cell count method Nom (Bld) Auto [facility] Eosinophils (Bld) [#/Vol] 0.15 10*3/uL <0.46 k/uL [facility] Eosinophils/100 WBC (Bld) 3.2 % [facility] Erythrocyte distribution width (RBC) [Ratio] 12.9 % 11.5 - 15.0 % [facility] Hematocrit (Bld) [Volume fraction] 38.4 % Low 39.0 - 51.0 % [facility] Hemoglobin (Bld) [Mass/Vol] 12.9 g/dL Low 13.0 - 17.0 g/dL [facility] Immature Gran % 0.6 % [facility] Lymphocytes (Bld) [#/Vol] 1.11 10*3/uL 1.00 - 4.00 k/uL [facility] Lymphocytes/100 WBC (Bld) 23.8 % [facility] MCH (RBC) [Entitic mass] 31.6 pg 26. 0 - 34.0 pg [facility] MCHC (RBC) [Mass/Vol] 33.6 g/dL 30.5 - 36.0 g/dL [facility] MCV (RBC) [Entitic vol] 94.1 fL 80.0 - 100.0 fL [facility] Monocytes (Bld) [#/Vol] 0.38 10*3/uL <0.87 k/uL [facility] Monocytes/100 WBC (Bld) 8.1 % [facility] Neutrophils (Bld) [#/Vol] 2.97 10*3/uL 1.45 - 7.50 k/uL [facility] Neutrophils/100 WBC (Bld) 63.7 % [facility] Nucleated RBC (Bld) [#/Vol] 10*3/uL <0.01 k/uL [facility] Nucleated RBC/100 WBC (Bld) [Ratio] 0.0 /100 WBC [facility] Platelet mean volume (Bld) [Entitic vol] 9.9 fL 9.0 - 12.7 fL [facility] Platelets (Bld) [#/Vol] 184 10*3/uL 150 - 400 k/uL [facility] RBC (Bld) [#/Vol] 4.08 10*6/uL Low 4.20 - 6.0 0 m/uL [facility] WBC (Bld) [#/Vol] 4.67 10*3/uL 3.70 - 11. 00 k/uL [facility] Comprehensive metabolic 2000 panelon 06-16-2021 Albumin [Mass/Vol] 3.9 g/dL 3.9 - 4.9 g/dL [facility] ALP [Catalytic activity/Vol] 95 U/L 38 - 113 U/L [facility] ALT [Catalytic activity/Vol] 12 U/L 10 - 54 U/L [facility] Anion gap [Moles/Vol] 7 mmol/L Low 9 - 18 mmol/L [facility] AST [Catalytic activity/Vol] 19 U/L 14 - 40 U/L [facility] Bilirubin [Mass/Vol] 0.6 mg/dL 0.2 - 1 .3 mg/dL [facility] Calcium [Mass/Vol] 8.4 mg/dL Low 8.5 - 10. 2 mg/dL [facility] Chloride [Moles/Vol] 105 mmol/L 97 - 10 5 mmol/L [facility] CO2 [Moles/Vol] 25 mmol/L 22 - 30 mmol/L [facility] Creatinine [Mass/Vol] 0.74 mg/dL 0.73 - 1.22 mg/dL [facility] Estimated Glomerular Filtration Rate 97 mL/min/1.73m >=60 mL/min/1.73m [facility] Glucose [Mass/Vol] 97 mg/dL 74 - 99 mg/dL [facility] Potassium [Moles/Vol] 3.8 mmol/L 3.7 - 5.1 mmol/L [facility] Protein [Mass/Vol] 6.4 g/dL 6.3 - 8.0 g/dL [facility] Sodium [Moles/Vol] 137 mmol/L 136 - 144 mmol/L [facility] Urea nitrogen [Mass/Vol] 13 mg/dL 9 - 24 mg/d L [facility] MAGNESIUM BLDon 06-16-2021 Magnesium [Mass/Vol] 2.1 mg/dL 1.7 - 2 .3 mg/dL [facility] Established Visit (Otolaryng ology)on 02-10-2021 Established Visit (Otolaryngology) Diagnoses/Problems Sensorineural hearing loss (SNHL) of both ears (389.18) (H90.3) Acoustic neuroma (225.1) (D33.3) Blood tests prior to treatment or procedure (V72.63) (Z01.812) Patient Discussion/Summary By signing my name below, I, Percy Santana, attest that this documentation has been prepared under the direction and in the presence of Dr. Gisela Harrell. Provider Impressions In summary, Mr. 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 We discussed his diagnoses at length including approaches for management including observation, radiosurgery, and/or surgical excision. Since the tumor has not changed in size and since his hearing has remained stable, as well as since he is happy with his bicross hearing aids, he is interested in continuing observation which I think is reasonable. I plan to see him back in a year with a new MRI and audiogram. In the meantime, he will continue to wear his hearing aids on a regular basis. Chief Complaint 6-month f/u visit with hearing test History of Present IllnessMr. 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 In the last visit, I recommended that he start using bicross hearing aids, which he has been doing. He is very happy with his hearing result. He denies any dizziness or facial spasms. His right ear, which is his better-hearing ear, has not had any changes in hearing. Review of Systems 10-point review of systems completed and are negative unless otherwise mentioned in the HPI *Active Problems Hypertension (401.9) (I10) Liver cyst (573.8) (K76.89) NAFLD (nonalcoholic fatty liver disease) (571.8) (K76.0) Acoustic neuroma (225.1) (D33.3) Sensorineural hearing loss (SNHL) of both ears (389.18) (H90.3) Past Medical History History of left heart catheterization (V15.1) (Z98.890) Surgical History History of Coronary Artery Triple Bypass Graft History of Extracaps Cataract Extract With Prosthesis Insert Left Eye History of Eye Surgery History of Tonsillectomy Family History Family history of myocardial infarction (V17.3) (Z82.49) Social History Former smoker (V15.82) (Z87.891) Social alcohol use (Z78.9) Allergies codeine Recorded By: Jie Nieves; 02/24/2017 2:55:55 PM Current Meds Medication NameInstruction Aspirin 81 MG Oral Tablet Delayed ReleaseTAKE 1 TABLET DAILY. Clopidogrel Bisulfate 75 MG Oral TabletTAKE 1 TABLET DAILY. Co Q-10 120 MG Oral Capsule Finasteride 5 MG Oral TabletTake 1 tablet daily Metoprolol Tartrate 25 MG Oral TabletTAKE 1 TABLET TWICE DAILY. Tampa-3 350 MG Oral Capsule Delayed Release Probiotic CAPS Tamsulosin HCl - 0.4 MG Oral CapsuleTAKE 1 CAPSULE Bedtime Triamcinolone Acetonide 0.1 % External Cream Physical Exam On physical exam, the patient is a well-nourished, well-developed patient, in no acute distress, and able to communicate without assistance in [place] Islander language. Head and face is atraumatic and normocephalic. Salivary glands are intact. Facial strength is symmetrical bilaterally. On ear examination: Right ear: The patient had a cerumen impaction that I removed with the otologic microscope. The tympanic membrane is intact. Air conduction is higher than bone conduction. Left ear: The patient had a cerumen impaction that I removed with the otologic microscope. The tympanic membrane is intact. He cannot discern the tuning fork. The Sol lateralizes to the right On vestibular exam, the patient has no spontaneous nystagmus, no headshake nystagmus, no head-thrust nystagmus, and no nystagmus on hyperventilation or Valsalva maneuvers. On Neuro exam, the patient is alert and oriented x3, cranial nerves are grossly intact, cerebellar exam is normal. The rest of their exam, including anterior rhinoscopy, oropharyngeal exam, neck exam, and cardiovascular exam, were normal including no palpable lymphadenopathies, thyroid in the midline position, normal pulses, and normal chest excursion. Results/Data I reviewed his audiogram from today, which shows a profound hearing loss on the left side with 0% discrimination and moderate to severe mixed hearing loss on the right side with 88% discrimination. His hearing is unchanged compared to his audiogram form 6 months ago. I reviewed his MRI which shows an unchanged 1x0.7 cm enhancing mass in the left IAC consistent with acoustic neuroma. The tumor has not changed in size compared to the MRI from 06/2020. I have reviewed the audiogram from 07/05/20 which shows moderate sloping to severe mixed hearing loss on the right. Profound SNHL on the left. Speech discrimination is 96% on the right, 0% on the left. I have reviewed the MRI IAC from which shows a 10.1 x (more content not included)... Normal [facility] MRI IAC w/wo Contraston 01-29 MRI IAC w/wo Contrast Normal [facility] Work Phone: NR MRI IAC WO/Won 02-10-2021 NR MRI IAC WO/W Patient Name: JAI LUNA STUDY: MRI IAC WO/W; 02/10/2021 1:53 pm INDICATION: Acoustic neuroma; Health Maintenance. COMPARISON: None. ACCESSION NUMBER(S): [id number] ORDERING CLINICIAN: GISELA HARRELL TECHNIQUE: T2, FLAIR, DWI, gradient echo T2 and T1 weighted images of brain were acquired without intravenous contrast administration. Precontrast high-resolution T1 weighted and T2 weighted images were acquired through the region of internal auditory canals. Post contrast T1 weighted images of the whole brain, high-resolution T1 coronal images through the internal auditory canals and fat saturated T1 axial images through the internal auditory canals were acquired after administration of 18 milliliter DOTAREM GADOTERATE MEGLUMINE INJECTION gadolinium based intravenous contrast. FINDINGS: CSF Spaces: There is prominence of ventricles and sulci compatible with diffuse parenchymal volume loss. Parenchyma: There is no diffusion restriction abnormality to suggest acute infarct. There are nonspecific hyperintensities on FLAIR and T2 weighted imaging in the subcortical and periventricular white matter. Prominent perivascular spaces and/or small, remote lacunar infarcts are demonstrated in the basal ganglia. There is no abnormal parenchymal enhancement. There is no mass effect or midline shift. IAC region: There is an enhancing lesion centered in the left internal auditory canal and bulging into the cerebellopontine angle cistern measuring approximately 1.2 cm in transverse dimension by 0.7 cm in AP dimension by 0.5 cm in craniocaudal dimension. It extends up to and possibly into the cochlear aperture and to the IAC fundus. The right internal auditory canal and inner ear structures are unremarkable. Paranasal Sinuses and Mastoids: There are retention cysts or polyps along the floor of the left maxillary sinus. The left-sided mastoid air cells are clear. There is partial opacification of a right-sided mastoid air cell. There is leftward nasal septal bowing and spurring. IMPRESSION: 1. Enhancing intracanalicular mass in the left internal auditory canal and bulging into the cerebellopontine angle cistern favored to represent a schwannoma 2. Mild white-matter changes are nonspecific but may represent small vessel ischemic disease in a patient of this age. Electronically signed by: DO Sly MAE [facility] Office Visit (Audiology)on 04-13-2020 Follow-up visit Diagnoses/Problems Acoustic neuroma (225.1) (D33.3) Sensorineural hearing loss (SNHL) of both ears (389.18) (H90.3) Adult Risk Screening Initial Fall Risk Screening: JAI has not fallen in the last 6 months. His fall did not result in injury. JAI does not have a fear of falling. He does not need assistance with sitting, standing or walking. Does not need assistance walking in his home. He does not need assistance in an unfamiliar setting. The patient is not using an assistive device. Reference Documentation See scanned note Procedure Note: audiogram. History of Present Illness 71 year old male with Left acoustic neuroma. Previous audiogram 07/05/2020. Tinnitus, left ear No falls, no dizziness, no aural fullness. Patient utilizes a CROS aid. [id number] Patient's preferred language: [place] Islander Preferred language of the parent, legal guardian or surrogate decision-maker of this minor or incapacitated patient: Not Applicable No overt signs of domestic violence/neglect/abus e. No referral made to [employer]. Pain not interfering with optimal level of function or ability to assess and/or treat. Pain Scale rank: 0/10 Pain Scale used: Numeric No referral made to primary care provider (PCP). Factors/Barriers influencing patient's ability to complete assessment or learn: none. Person taught: patient. Readiness to learn: no barriers. Results of Teaching/Counseling: verbalize recall / understanding and teaching complete. Active Problems Acoustic neuroma (225.1) (D33.3) Blood tests prior to treatment or procedure (V72.63) (Z01.812) Hypertension (401.9) (I10) Liver cyst (573.8) (K76.89) NAFLD (nonalcoholic fatty liver disease) (571.8) (K76.0) Sensorineural hearing loss (SNHL) of both ears (389.18) (H90.3) Procedure Procedure: Audiological Assessment. Indication: hearing loss and tinnitus. History: uses hearing aids . Left acoustic neuroma. Otoscopy: Right: non-occluding cerumen and Left: non-occluding cerumen. Tympanometry: Right: normal and Left: normal. Volume: Right Volume: normal. Left Volume: normal. Acoustic Reflex: Right: absent and Left: absent. Audiometric Test Technique: standard behavior. Approximation to threshold: threshold data. Pure Tone Audiometry: Insert Phones. Right Tone Audiometry: moderate and severe sensorineural hearing loss. Left Tone Audiometry: profound sensorineural hearing loss. Speech Audiometry: Recorded. Right Speech Audiometry: SRT at 75 dBHL, Discrimination: 88%, at 100 dBHL. Left Speech Audiometry: SRT at NR at 110 dBHL, Discrimination: 0%, at 105 dBHL. Impression: Right Ear: sensorineural hearing loss. Left Ear: sensorineural hearing loss. Comparison to Previous Findings: no change. Re-evaluate hearing annually . consistent use of CROS aid system. Signatures Electronically signed by : Aylin Fernando; Feb 10 2021 4:22PM EST (Author) Reviewed by : Gisela Can MD; Feb 10 2021 6:38PM EST Normal [employer] Tobacco Screening.on 021 Fall risk assessment a) No falls within the last year [facility] 4100 Work Phone: Tobacco use status CPHS b) No M -[facility] 4100 Work Phone: Initial Visit (Otolaryngolog y)on 08-12-2020 Initial Visit (Otolaryngology) Diagnoses/Problems Encounter for preventive health examination (V70.0) (Z00.00) Acoustic neuroma (225.1) (D33.3) Sensorineural hearing loss (SNHL) of both ears (389.18) (H90.3) Orders Basic Metabolic Panel; Status:Active - Retrospective Authorization; Requested for:[id number]; MRI IAC w/wo Contrast; Status:Active; Requested for:[id number]; Radiologist to Determine Optimal Study : Y Does the patient have a Cochlear Implant, Pacemaker, Defibrilator, Pacing Wire, Brain Aneurysm Clip, Implanted Nerve or Bone Graft Simulator, Implanted Breast Tissue Pneumatic Tube Repairer, Glucose Monitor, or Neulasta Device? : No What are the patient's signs and symptoms? : Acoustic neuroma; Health Maintenance Audiology Referral Evaluation and Treatment Evaluate AND Treat Cross hearing aide Status: Hold For - Scheduling,Retrospect marquita By Protocol Authorization Requested for: [id number] Provider Impressions In summary, Mr. 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 We discussed his diagnoses at length including approaches for management including observation, radiosurgery, and/or surgical excision. Given his age, comorbidities and hearing/balance status, he is interested and will proceed with observation at this time. - Repeat MRI IAC w/wo contrast in 6 months - Repeat audiogram in 6 months - Eval for CROS hearing aids. - Return for follow-up in 6 months Chief Complaint NPV History of Present IllnessMr. Luna is a 70 year old male referred by Dr. Long for evaluation regarding a left CPA lesion. He reports 10 years of progressive hearing loss, left worse than right, now with no hearing in the left ear. Hearing has been completely absent on the left for the past month, hearing loss was sudden while watching television. He reports bilateral tinnitus, but denies otalgia, otorrhea, vertigo, history of ear infections or prior otologic surgery. He has been following with his ENT infrequently for the past 10 years, and is currently using a right-sided ITE aid for the past 7-9 years. He reports a sensation of imbalance for the past year, but no true vertiginous symptoms. PMH: GERD, Arthritis, CAD, HLD, HTN, BPH PSH: CABG, Prostate sx SH: former smoker, occasional EtOH use FH: Heart disease, emphysema Review of Systems 10-point review of systems completed and are negative unless otherwise mentioned in the HPI Active Problems Hypertension (401.9) (I10) Liver cyst (573.8) (K76.89) NAFLD (nonalcoholic fatty liver disease) (571.8) (K76.0) Past Medical History History of left heart catheterization (V15.1) (Z98.890) Surgical History History of Coronary Artery Triple Bypass Graft History of Extracaps Cataract Extract With Prosthesis Insert Left Eye History of Eye Surgery History of Tonsillectomy Family History Family history of myocardial infarction (V17.3) (Z82.49) Social History Former smoker (V15.82) (Z87.891) Social alcohol use (Z78.9) Allergies codeine Recorded By: Jie Nieves; 02/24/2017 2:55:55 PM Current Meds Medication NameInstruction Aspirin 81 MG Oral Tablet Delayed ReleaseTAKE 1 TABLET DAILY. Clopidogrel Bisulfate 75 MG Oral TabletTAKE 1 TABLET DAILY. Co Q-10 120 MG Oral Capsule Finasteride 5 MG Oral TabletTake 1 tablet daily Metoprolol Tartrate 25 MG Oral TabletTAKE 1 TABLET TWICE DAILY. Tampa-3 350 MG Oral Capsule Delayed Release Probiotic Oral Capsule Tamsulosin HCl - 0.4 MG Oral CapsuleTAKE 1 CAPSULE Bedtime Triamcinolone Acetonide 0.1 % External Cream Vitals Vital Signs Recorded: 12Aug2020 11:33AM Height5 ft 5 in [id number] lb 0.9 oz BMI Iayzvxqksp13.79 kg/m2 BSA Calculated1.97 Physical Exam On physical exam, the patient is a well-nourished, well-developed patient, in no acute distress, and able to communicate without assistance in [place]er language. Head and face is atraumatic and normocephalic. Salivary glands are intact. Facial strength is symmetrical bilaterally. On ear examination: Right ear: The patient has an open and patent ear canal and intact tympanic membrane. Air conduction is higher than bone conduction. Left ear: The patient has an open and patent ear canal and intact tympanic membrane. The Sol lateralizes right On vestibular exam, the patient has no spontaneous nystagmus, no headshake nystagmus, no head-thrust nystagmus, and no nystagmus on hyperventilation or Valsalva maneuvers. On Neuro exam, the patient is alert and oriented x3, cranial nerves are grossly intact, cerebellar exam is normal. The rest of their exam, including anterior rhinoscopy, oropharyngeal exam, neck exam, and cardiovascular exam, were normal including no palpable lymphadenopathies, thyroid in the midline position, normal pulses, and normal chest excursion. Results/Data I have reviewed the audiogram from 07/05/20 which shows moderat (more content not included)... Normal [employer] COVID-19 virus antigen assay SARS-CoV-2 (COVID-19) Ag IA.rapid Ql (Resp) [facility] Work Phone: Influenza virus A and B and SARS-CoV-2 (COVID-19) Ag panel - Upper respiratory specim SARS-CoV-2 (COVID-19) RNA RODGER+probe Ql (Resp) [facility] Work Phone: Laboratory - Microbiology an d Antimicrobial susceptibility Bacteria identified Cx Nom (Bld) No growth in 5 days. [facility] Work Phone: Vital Signs Date Time Vital Sign Value Performing Clinician Facility 11-29-2024 07:49-0400 Body height 167.[address] Katy Faust MD Work Phone: [facility] 11-29-2024 07:49-0400 Body mass index (BMI) [Ratio] 30.8 kg/m2 Dr. Katy Faust MD Work Phone: 6(667)862-170154 [place] [address] 11-29-2024 07:49-0400 Body weight 86.[address] Katy Faust MD Work Phone: 5(583)590-498754 [place] [address] 11-29-2024 07:49-0400 Diastolic blood pressure 77 mm[Hg] Dr. Katy Faust MD Work Phone: 8(251)792-567854 [place] [address] 11-29-2024 07:49-0400 Heart rate 76 /min Dr. Katy Faust MD Work Phone: 3(552)019-056254 [place] [address] 11-29-2024 07:49-0400 Respiratory rate 18 /min Dr. Katy Faust MD Work Phone: 8(899)688-714554 [place] [address] 11-29-2024 07:49-0400 SaO2% (BldA) [Mass fraction] 95 % Dr. Katy Faust MD Work Phone: 7(605)042-994954 [place] [address] 11-29-2024 07:49-0400 Systolic blood pressure 139 mm[Hg] Dr. Katy Faust MD Work Phone: 7(961)704-552654 [place] [address] 10-13-2024 08:58-0400 Body height 167.[address] Katy Faust MD Work Phone: 2(816)114-600954 [place] [address] 10-13-2024 08:58-0400 Body mass index (BMI) [Ratio] 31.3 kg/m2 Dr. Katy Faust MD Work Phone: 4(026)827-696154 [place] [address] 10-13-2024 08:58-0400 Body weight 87.[address] Katy Faust MD Work Phone: 4(464)311-258554 [place] [address] 08-23-2024 10:08-0400 Body temperature 97.3 [degF] Dr. Katy Faust MD Work Phone: 1(852)018-204554 [place] [address] 08-23-2024 10:08-0400 Body weight 87.[address] Katy Faust MD Work Phone: 7(924)626-248354 [place] [address] 08-23-2024 10:08-0400 Diastolic blood pressure 80 mm[Hg] Dr. Katy Faust MD Work Phone: [facility] 08-23-2024 10:08-0400 Heart rate 62 /min Dr. Katy Faust MD Work Phone: [facility] 08-23-2024 10:08-0400 Respiratory rate 16 /min Dr. Katy Faust MD Work Phone: [facility] 08-23-2024 10:08-0400 SaO2% (BldA) [Mass fraction] 98 % Dr. Katy Faust MD Work Phone: [facility] 08-23-2024 10:08-0400 Systolic blood pressure 120 mm[Hg] Dr. Katy Fasut MD Work Phone: [facility] 08-15-2024 15:17-0400 Body mass index (BMI) [Ratio] 32.28 kg/m2 Norm Elena FLOW SPECIALIST.SECURITY SYSTEM INSTALLER Work Phone: [facility] 08-15-2024 15:17-0400 Body weight 87.3 kg Norm Elena FLOW SPECIALIST.SECURITY SYSTEM INSTALLER Work Phone: [facility] 08-15-2024 15:17-0400 Diastolic blood pressure 70 mm[Hg] Norm Elena FLOW SPECIALIST.SECURITY SYSTEM INSTALLER Work Phone: [facility] 08-15-2024 15:17-0400 Heart rate 62 /min Norm Elena FLOW SPECIALIST.SECURITY SYSTEM INSTALLER Work Phone: [facility] 08-15-2024 15:17-0400 SaO2% (BldA) [Mass fraction] 98 % Norm Elena FLOW SPECIALIST.SECURITY SYSTEM INSTALLER Work Phone: [facility] 08-15-2024 15:17-0400 Systolic blood pressure 132 mm[Hg] Norm Elena FLOW SPECIALIST.SECURITY SYSTEM INSTALLER Work Phone: [facility] 07-05-2024 07:57-0400 Body mass index (BMI) [Ratio] 31.91 kg/m2 Norm Elena FLOW SPECIALIST.SECURITY SYSTEM INSTALLER Work Phone: [facility] 07-05-2024 07:57-0400 Body weight 86.3 kg Norm Elena FLOW SPECIALIST.SECURITY SYSTEM INSTALLER Work Phone: [facility] 07-05-2024 07:57-0400 Diastolic blood pressure 80 mm[Hg] Norm Elena FLOW SPECIALIST.SECURITY SYSTEM INSTALLER Work Phone: [facility] 07-05-2024 07:57-0400 Heart rate 75 /min Norm Elena FLOW SPECIALIST.SECURITY SYSTEM INSTALLER Work Phone: [facility] 07-05-2024 07:57-0400 SaO2% (BldA) [Mass fraction] 97 % Norm Elena FLOW SPECIALIST.SECURITY SYSTEM INSTALLER Work Phone: [facility] 07-05-2024 07:57-0400 Systolic blood pressure 138 mm[Hg] Norm Elena FLOW SPECIALIST.SECURITY SYSTEM INSTALLER Work Phone: [facility] 05-31-2024 15:53-0400 Body mass index (BMI) [Ratio] 32.61 kg/m2 Katy Faust MD Work Phone: [facility] 05-31-2024 15:53-0400 Body temperature 97 [degF] Katy Faust MD Work Phone: [facility] 05-31-2024 15:53-0400 Body weight 88.2 kg Katy Faust MD Work Phone: [facility] 05-31-2024 15:53-0400 Diastolic blood pressure 68 mm[Hg] Katy Faust MD Work Phone: [facility] 05-31-2024 15:53-0400 Heart rate 64 /min Katy Faust MD Work Phone: [facility] 05-31-2024 15:53-0400 Respiratory rate 16 /min Katy Faust MD Work Phone: [facility] 05-31-2024 15:53-0400 Systolic blood pressure 138 mm[Hg] Katy Faust MD Work Phone: [facility] 04-25-2024 15:29-0500 Body temperature 98.5 [degF] Dr. Katy Faust MD Work Phone: 5(346)911-103100 [place] [address] 04-25-2024 15:29-0500 Diastolic blood pressure 75 mm[Hg] Dr. Katy Faust MD Work Phone: 5(427)628-358354 [place] [address] 04-25-2024 15:29-0500 Heart rate 65 /min Dr. Katy Faust MD Work Phone: 1(934)848-318054 [place] [address] 04-25-2024 15:29-0500 Respiratory rate 16 /min Dr. Katy Faust MD Work Phone: 1(728)019-382954 [place] [address] 04-25-2024 15:29-0500 SaO2% (BldA) [Mass fraction] 98 % Dr. Katy Faust MD Work Phone: 4(084)757-850554 [place] [address] 04-25-2024 15:29-0500 Systolic blood pressure 140 mm[Hg] Dr. Katy Faust MD Work Phone: 7(628)283-466100 [place] [address] 04-25-2024 10:35-0500 Body height 167.[address] Katy Faust MD Work Phone: 4(848)100-956354 [place] [address] 04-25-2024 10:35-0500 Body mass index (BMI) [Ratio] 30.4 kg/m2 Dr. Katy Faust MD Work Phone: 8(624)162-614354 [place] [address] 04-25-2024 10:35-0500 Body weight 85.[address] Katy Faust MD Work Phone: 1(874)640-967300 [place] [address] 01-04-2024 14:40-0500 Body height 164.5 cm Norm Elena FLOW SPECIALIST.SECURITY SYSTEM INSTALLER Work Phone: 4(335)128-608886 [place] [address] 01-04-2024 14:40-0500 Body mass index (BMI) [Ratio] 31.76 kg/m2 Norm Elena FLOW SPECIALIST.SECURITY SYSTEM INSTALLER Work Phone: 4(209)474-434086 [place] [address] 01-04-2024 14:40-0500 Body weight 85.9 kg Norm Elena FLOW SPECIALIST.SECURITY SYSTEM INSTALLER Work Phone: 6(771)452-015686 [place] [address] 01-04-2024 14:40-0500 Diastolic blood pressure 74 mm[Hg] Norm Elena FLOW SPECIALIST.SECURITY SYSTEM INSTALLER Work Phone: [facility] 01-04-2024 14:40-0500 Heart rate 64 /min Norm Elena FLOW SPECIALIST.SECURITY SYSTEM INSTALLER Work Phone: [facility] 01-04-2024 14:40-0500 SaO2% (BldA) [Mass fraction] 98 % Norm Elena FLOW SPECIALIST.SECURITY SYSTEM INSTALLER Work Phone: [facility] 01-04-2024 14:40-0500 Systolic blood pressure 136 mm[Hg] Norm Elena FLOW SPECIALIST.SECURITY SYSTEM INSTALLER Work Phone: [facility] 11-30-2023 09:58-0400 Diastolic blood pressure 72 mm[Hg] Norm Elena FLOW SPECIALIST.SECURITY SYSTEM INSTALLER Work Phone: [facility] 11-30-2023 09:58-0400 Systolic blood pressure 150 mm[Hg] Norm Elena FLOW SPECIALIST.SECURITY SYSTEM INSTALLER Work Phone: [facility] 11-30-2023 09:57-0400 Body mass index (BMI) [Ratio] 30.17 kg/m2 Norm Elena FLOW SPECIALIST.SECURITY SYSTEM INSTALLER Work Phone: [facility] 11-30-2023 09:57-0400 Body weight 84.8 kg Norm Elena FLOW SPECIALIST.SECURITY SYSTEM INSTALLER Work Phone: [facility] 11-30-2023 09:57-0400 Heart rate 54 /min Norm Elena FLOW SPECIALIST.SECURITY SYSTEM INSTALLER Work Phone: [facility] 11-30-2023 09:57-0400 SaO2% (BldA) [Mass fraction] 99 % Norm Elena FLOW SPECIALIST.SECURITY SYSTEM INSTALLER Work Phone: [facility] 09-22-2023 13:28-0400 Diastolic blood pressure 76 mm[Hg] Pacc 1 Work Phone: [facility] 09-22-2023 13:28-0400 Heart rate 66 /min Pacc 1 Work Phone: [facility] 09-22-2023 13:28-0400 Systolic blood pressure 145 mm[Hg] Pacc 1 Work Phone: [facility] 09-22-2023 13:190400 Body height 167.6 cm Pacc 1 Work Phone: [facility] 09-22-2023 13:19-0400 Body mass index (BMI) [Ratio] 30.89 kg/m2 Pacc 1 Work Phone: [facility] 09-22-2023 13:190400 Body temperature 97.81 [degF] Pacc 1 Work Phone: [facility] 09-22-2023 13:19040 Body weight 86.8 kg Pacc 1 Work Phone: [facility] 09-22-2023 13:19-0400 Respiratory rate 18 /min Pacc 1 Work Phone: [facility] 09-22-2023 13:190400 SaO2% (BldA) [Mass fraction] 97 % Pacc 1 Work Phone: [facility] 07-14-2023 13:160400 Body height 167.6 cm Sabrina Muñiz MD Work Phone: [facility] 07-14-2023 13:16-0400 Body mass index (BMI) [Ratio] 30.76 kg/m2 Sabrina Muñiz MD Work Phone: [facility] 07-14-2023 13:16-0400 Body temperature 98.71 [degF] Sabrina Muñiz MD Work Phone: [facility] 07-14-2023 13:16-0400 Body weight 86.46 kg Sabrina Muñiz MD Work Phone: [facility] 07-14-2023 13:16-0400 Diastolic blood pressure 68 mm[Hg] Sabrina Muñiz MD Work Phone: [facility] 07-14-2023 13:16-0400 Systolic blood pressure 116 mm[Hg] Sabrina Muñiz MD Work Phone: [facility] 07-08-2023 08:08-0400 Body height 167.[address] Katy Faust Work Phone: 5(688)341-881154 [place] [address] 07-08-2023 08:08-0400 Body weight 85.[address] Katy Faust Work Phone: 7(212)905-936854 [place] [address] 07-07-2023 13:51-0400 Body mass index (BMI) [Ratio] 30.3 kg/m2 Dr. Katy Faust Work Phone: 5(272)993-624054 [place] [address] 06-11-2023 19:12-0400 Diastolic blood pressure 94 mm[Hg] Dr. Katy Faust Work Phone: 8(550)767-686154 [place] [address] 06-11-2023 19:12-0400 Heart rate 92 /min Dr. Katy Faust Work Phone: 9(848)412-484554 [place] [address] 06-11-2023 19:12-0400 Respiratory rate 20 /min Dr. Katy Faust Work Phone: 1(701)620-602854 [place] [address] 06-11-2023 19:12-0400 SaO2% (BldA) [Mass fraction] 96 % Dr. Katy Faust Work Phone: 8(050)979-254654 [place] [address] 06-11-2023 19:12-0400 Systolic blood pressure 156 mm[Hg] Dr. Katy Faust Work Phone: 9(194)387-958854 [place] [address] 06-11-2023 18:34-0400 Body height [address] Katy Faust Work Phone: 2(194)[phone] [place] [address] 06-11-2023 18:34-0400 Body mass index (BMI) [Ratio] 32.3 kg/m2 Dr. Katy Faust Work Phone: 4(347)[phone] [place] [address] 06-11-2023 18:34-0400 Body temperature 95.8 [degF] Dr. Katy Faust Work Phone: 8(504)[phone] [place] [address] 06-11-2023 18:34-0400 Body weight 90.[address] Katy Faust Work Phone: [facility] 05-31-2023 09:51-0400 Body temperature 97 [degF] Mary Anne Alejandro FLOW SPECIALIST.SECURITY SYSTEM INSTALLER Work Phone: [facility] 05-31-2023 09:51-0400 Body weight 85.1 kg Mary Anne Alejandro FLOW SPECIALIST.SECURITY SYSTEM INSTALLER Work Phone: [facility] 05-31-2023 09:51-0400 Diastolic blood pressure 62 mm[Hg] Mary Anne Alejandro FLOW SPECIALIST.SECURITY SYSTEM INSTALLER Work Phone: [facility] 05-31-2023 09:51-0400 Heart rate 60 /min Mary Anne Alejandor FLOW SPECIALIST.SECURITY SYSTEM INSTALLER Work Phone: [facility] 05-31-2023 09:51-0400 Respiratory rate 16 /min Mary Anne Alejandro FLOW SPECIALIST.SECURITY SYSTEM INSTALLER Work Phone: [facility] 05-31-2023 09:51-0400 SaO2% (BldA) [Mass fraction] 97 % Mary Anne Alejandro FLOW SPECIALIST.SECURITY SYSTEM INSTALLER Work Phone: [facility] 05-31-2023 09:51-0400 Systolic blood pressure 106 mm[Hg] Mary Anne Alejandro FLOW SPECIALIST.SECURITY SYSTEM INSTALLER Work Phone: [facility] 05-20-2023 15:36-0400 Body temperature 98.2 [degF] Dr. Katy Faust Work Phone: [facility] 05-20-2023 15:36-0400 Body weight 85.[address] Katy Faust Work Phone: [facility] 05-20-2023 15:36-0400 Diastolic blood pressure 69 mm[Hg] Dr. Katy Faust Work Phone: [facility] 05-20-2023 15:36-0400 Heart rate 62 /min Dr. Katy Faust Work Phone: [facility] 05-20-2023 15:36-0400 Respiratory rate 16 /min Dr. Katy Faust Work Phone: [facility] 05-20-2023 15:36-0400 SaO2% (BldA) [Mass fraction] 97 % Dr. Katy Faust Work Phone: [facility] 05-20-2023 15:36-0400 Systolic blood pressure 121 mm[Hg] Dr. Katy Faust Work Phone: 5(389)[phone] [place] [address] 05-05-2023 15:07-0500 Diastolic blood pressure 66 mm[Hg] Dr. Katy Faust Work Phone: 4(902)[phone] [place] [address] 05-05-2023 15:07-0500 Heart rate 60 /min Dr. Katy Faust Work Phone: 5(217)[phone] [place] [address] 05-05-2023 15:07-0500 Systolic blood pressure 144 mm[Hg] Dr. Katy Faust Work Phone: 9(627)[phone] [place] [address] 05-05-2023 14:48-0500 Body height 167.[address] Katy Faust Work Phone: 6(386)[phone] [place] [address] 05-05-2023 14:48-0500 Body mass index (BMI) [Ratio] 30.3 kg/m2 Dr. Katy Faust Work Phone: 8(712)[phone] [place] [address] 05-05-2023 14:48-0500 Body weight 85.[address] Katy Faust Work Phone: 7(913)[phone] [place] [address] 05-05-2023 14:48-0500 Respiratory rate 18 /min Dr. Katy Faust Work Phone: [facility] 12-03-2022 12:30-0400 Diastolic blood pressure 64 mm[Hg] Justin William MD Work Phone: [facility] 12-03-2022 12:30-0400 Heart rate 60 /min Justin William MD Work Phone: [facility] 12-03-2022 12:30-0400 Respiratory rate 17 /min Justin William MD Work Phone: [facility] 12-03-2022 12:30-0400 SaO2% (BldA) [Mass fraction] 99 % Justin William MD Work Phone: [facility] 12-03-2022 12:30-0400 Systolic blood pressure 109 mm[Hg] Justin William MD Work Phone: [facility] 12-03-2022 09:16-0400 Body temperature 97.5 [degF] Justin William MD Work Phone: [facility] 11-03-2022 10:24-0400 Body weight 77.07 kg Terry Balderrama MD Work Phone: [facility] 11-03-2022 10:24-0400 Diastolic blood pressure 76 mm[Hg] Terry Balderrama MD Work Phone: [facility] 11-03-2022 10:24-0400 Heart rate 56 /min Terry Balderrama MD Work Phone: [facility] 11-03-2022 10:24-0400 Systolic blood pressure 120 mm[Hg] Terry Balderrama MD Work Phone: [facility] 05-20-2022 13:44-0400 Body height 167.6 cm ANTONI Cheung MD Work Phone: [facility] 05-20-2022 13:44-0400 Body weight 68.95 kg ANTONI Cheung MD Work Phone: [facility] 05-20-2022 11:24-0400 Body height 167.6 cm Terry Balderrama MD Work Phone: [facility] 05-20-2022 11:24-0400 Body weight 68.95 kg Terry Balderrama MD Work Phone: [facility] 05-20-2022 11:24-0400 Diastolic blood pressure 74 mm[Hg] Terry Balderrama MD Work Phone: [facility] 05-20-2022 11:24-0400 Heart rate 87 /min Terry Baldrerama MD Work Phone: [facility] 05-20-2022 11:24-0400 SaO2% (BldA) [Mass fraction] 98 % Terry Balderrama MD Work Phone: [facility] 05-20-2022 11:24-0400 Systolic blood pressure 111 mm[Hg] Terry Balderrama MD Work Phone: [facility] 05-20-2022 09:33-0400 Body height 167.6 cm Pacc 5 Work Phone: [facility] 05-20-2022 09:33-0400 Body temperature 97 [degF] Pacc 5 Work Phone: [facility] 05-20-2022 09:33-0400 Body weight 68.95 kg Pacc 5 Work Phone: [facility] 05-20-2022 09:33-0400 Diastolic blood pressure 74 mm[Hg] Pacc 5 Work Phone: [facility] 05-20-2022 09:33-0400 Heart rate 87 /min Pacc 5 Work Phone: [facility] 05-20-2022 09:33-0400 SaO2% (BldA) [Mass fraction] 98 % Pacc 5 Work Phone: [facility] 05-20-2022 09:33-0400 Systolic blood pressure 111 mm[Hg] Pacc 5 Work Phone: [facility] 04-23-2022 11:38-0500 Body temperature 98.1 [degF] Doris Rivera RN Work Phone: [facility] 04-23-2022 11:38-0500 Body weight 67.13 kg Doris Rivera RN Work Phone: [facility] 04-23-2022 11:38-0500 Diastolic blood pressure 64 mm[Hg] Doris Rivera RN Work Phone: [facility] 04-23-2022 11:38-0500 Heart rate 93 /min Doris Rivera RN Work Phone: [facility] 04-23-2022 11:38-0500 Respiratory rate 18 /min Doris Rivera RN Work Phone: [facility] 04-23-2022 11:38-0500 SaO2% (BldA) [Mass fraction] 97 % Doris Rivera RN Work Phone: [facility] 04-23-2022 11:38-0500 Systolic blood pressure 90 mm[Hg] Doris Rivera RN Work Phone: [facility] 04-22-2022 16:12-0500 Body weight 67.59 kg Katy Faust MD Work Phone: [facility] 04-22-2022 16:12-0500 Diastolic blood pressure 76 mm[Hg] Katy Faust MD Work Phone: [facility] 04-22-2022 16:12-0500 Heart rate 103 /min Katy Faust MD Work Phone: [facility] 04-22-2022 16:12-0500 Respiratory rate 18 /min Katy Faust MD Work Phone: [facility] 04-22-2022 16:12-0500 Systolic blood pressure 109 mm[Hg] Katy Faust MD Work Phone: [facility] 04-22-2022 13:50-0500 Body temperature 97.9 [degF] Estefany Stern PT Work Phone: [facility] 04-22-2022 13:50-0500 Body weight 67.41 kg Estefany Stern PT Work Phone: [facility] 04-22-2022 13:50-0500 Diastolic blood pressure 76 mm[Hg] Estefany Stern PT Work Phone: [facility] 04-22-2022 13:50-0500 Heart rate 114 /min Estefany Stern PT Work Phone: [facility] 04-22-2022 13:50-0500 Respiratory rate 18 /min Estefany Stern PT Work Phone: [facility] 04-22-2022 13:50-0500 SaO2% (BldA) [Mass fraction] 99 % Estefany Stern PT Work Phone: [facility] 04-22-2022 13:50-0500 Systolic blood pressure 108 mm[Hg] Estefany Stern PT Work Phone: [facility] 04-21-2022 11:48-0500 Heart rate 109 /min Isela Patrizia SCOOP DRIVER Work Phone: [facility] 04-21-2022 11:48-0500 SaO2% (BldA) [Mass fraction] 97 % Isela Patrizia SCOOP DRIVER Work Phone: [facility] 04-21-2022 11:13-0500 Body temperature 97.5 [degF] Isela Patrizia SCOOP DRIVER Work Phone: [facility] 04-21-2022 11:13-0500 Diastolic blood pressure 66 mm[Hg] Isela Patrizia SCOOP DRIVER Work Phone: [facility] 04-21-2022 11:13-0500 Respiratory rate 18 /min Isela Patrizia SCOOP DRIVER Work Phone: [facility] 04-21-2022 11:13-0500 Systolic blood pressure 110 mm[Hg] Isela Patrizia SCOOP DRIVER Work Phone: [facility] 04-17-2022 11:42-0500 Diastolic blood pressure 72 mm[Hg] Isela Patrizia SCOOP DRIVER Work Phone: [facility] 04-17-2022 11:42-0500 Heart rate 94 /min Isela Patrizia SCOOP DRIVER Work Phone: [facility] 04-17-2022 11:42-0500 SaO2% (BldA) [Mass fraction] 99 % Isela Patrizia SCOOP DRIVER Work Phone: [facility] 04-17-2022 11:42-0500 Systolic blood pressure 102 mm[Hg] Isela Patrizia SCOOP DRIVER Work Phone: [facility] 04-17-2022 11:16-0500 Respiratory rate 18 /min Isela Patrizia SCOOP DRIVER Work Phone: [facility] 04-15-2022 11:15-0500 Body temperature 97.39 [degF] Isela Patrizia SCOOP DRIVER Work Phone: [facility] 04-15-2022 11:15-0500 Diastolic blood pressure 68 mm[Hg] Isela Patrizia SCOOP DRIVER Work Phone: [facility] 04-15-2022 11:15-0500 Heart rate 86 /min Isela Patrizia SCOOP DRIVER Work Phone: [facility] 04-15-2022 11:15-0500 Respiratory rate 18 /min Isela Patrizia SCOOP DRIVER Work Phone: [facility] 04-15-2022 11:15-0500 SaO2% (BldA) [Mass fraction] 99 % Isela Patrizia SCOOP DRIVER Work Phone: [facility] 04-15-2022 11:15-0500 Systolic blood pressure 116 mm[Hg] Isela Patrizia SCOOP DRIVER Work Phone: [facility] 04-13-2022 11:50-0500 Body temperature 97.9 [degF] Britta Mantilla RN Work Phone: [facility] 04-13-2022 11:50-0500 Diastolic blood pressure 78 mm[Hg] Britta Mantilla RN Work Phone: [facility] 04-13-2022 11:50-0500 Heart rate 84 /min Britta Mantilla RN Work Phone: [facility] 04-13-2022 11:50-0500 Respiratory rate 16 /min Britta Mantilla RN Work Phone: [facility] 04-13-2022 11:50-0500 SaO2% (BldA) [Mass fraction] 99 % Britta Most RN Work Phone: [facility] 04-13-2022 11:50-0500 Systolic blood pressure 118 mm[Hg] Britta Most RN Work Phone: [facility] 04-09-2022 11:11-0500 Body temperature 97.9 [degF] Britta Most RN Work Phone: [facility] 04-09-2022 11:11-0500 Body weight 63.96 kg Britta Most RN Work Phone: [facility] 04-09-2022 11:11-0500 Diastolic blood pressure 70 mm[Hg] Britta Most RN Work Phone: [facility] 04-09-2022 11:11-0500 Heart rate 92 /min Britta Most RN Work Phone: [facility] 04-09-2022 11:11-0500 Respiratory rate 16 /min Britta Most RN Work Phone: [facility] 04-09-2022 11:11-0500 SaO2% (BldA) [Mass fraction] 97 % Britta Most RN Work Phone: [facility] 04-09-2022 11:11-0500 Systolic blood pressure 116 mm[Hg] Britta Most RN Work Phone: [facility] 04-07-2022 11:50-0500 Heart rate 91 /min Isela Patrizia SCOOP DRIVER Work Phone: [facility] 04-07-2022 11:50-0500 SaO2% (BldA) [Mass fraction] 99 % Isela Patrizia SCOOP DRIVER Work Phone: [facility] 04-07-2022 11:19-0500 Diastolic blood pressure 70 mm[Hg] Isela Patrizia SCOOP DRIVER Work Phone: [facility] 04-07-2022 11:19-0500 Systolic blood pressure 110 mm[Hg] Isela Patrizia SCOOP DRIVER Work Phone: [facility] 04-07-2022 11:13-0500 Body temperature 97.59 [degF] Isela Acharya SCOOP DRIVER Work Phone: [facility] 04-07-2022 11:13-0500 Respiratory rate 18 /min Isela Patrizia SCOOP DRIVER Work Phone: [facility] 04-06-2022 14:47-0500 Body height 165.1 cm Norm Elena FLOW SPECIALIST.SECURITY SYSTEM INSTALLER Work Phone: [facility] 04-06-2022 14:47-0500 Body weight 64.86 kg Norm Elena FLOW SPECIALIST.SECURITY SYSTEM INSTALLER Work Phone: [facility] 04-06-2022 14:47-0500 Diastolic blood pressure 80 mm[Hg] Norm Elena FLOW SPECIALIST.SECURITY SYSTEM INSTALLER Work Phone: [facility] 04-06-2022 14:47-0500 Heart rate 115 /min Norm Elena FLOW SPECIALIST.SECURITY SYSTEM INSTALLER Work Phone: [facility] 04-06-2022 14:47-0500 SaO2% (BldA) [Mass fraction] 93 % Norm Elena FLOW SPECIALIST.SECURITY SYSTEM INSTALLER Work Phone: [facility] 04-06-2022 14:47-0500 Systolic blood pressure 98 mm[Hg] Norm Elena FLOW SPECIALIST.SECURITY SYSTEM INSTALLER Work Phone: [facility] 04-06-2022 13:28-0500 Body weight 64.5 kg Britta Mantilla RN Work Phone: [facility] 04-06-2022 13:28-0500 Diastolic blood pressure 60 mm[Hg] Britta aMntilla RN Work Phone: [facility] 04-06-2022 13:28-0500 Systolic blood pressure 88 mm[Hg] Britta Mantilla RN Work Phone: [facility] 04-06-2022 13:27-0500 Body temperature 97.9 [degF] Britta Mantilla RN Work Phone: [facility] 04-06-2022 13:27-0500 Heart rate 108 /min Britta Most RN Work Phone: [facility] 04-06-2022 13:27-0500 Respiratory rate 16 /min Britta Most RN Work Phone: [facility] 04-06-2022 13:27-0500 SaO2% (BldA) [Mass fraction] 97 % Britta Most RN Work Phone: [facility] 04-03-2022 11:44-0500 Heart rate 99 /min Isela Patrizia SCOOP DRIVER Work Phone: [facility] 04-03-2022 11:44-0500 SaO2% (BldA) [Mass fraction] 99 % Isela Patrizia SCOOP DRIVER Work Phone: [facility] 04-03-2022 11:35-0500 Body temperature 97.81 [degF] Isela Patrizia SCOOP DRIVER Work Phone: [facility] 04-03-2022 11:35-0500 Diastolic blood pressure 76 mm[Hg] Isela Patrizia SCOOP DRIVER Work Phone: [facility] 04-03-2022 11:35-0500 Respiratory rate 18 /min Isela Patrizia SCOOP DRIVER Work Phone: [facility] 04-03-2022 11:35-0500 Systolic blood pressure 118 mm[Hg] Isela Patrizia SCOOP DRIVER Work Phone: [facility] 04-02-2022 17:14-0500 Body temperature 97.9 [degF] Britta Most RN Work Phone: [facility] 04-02-2022 17:14-0500 Diastolic blood pressure 78 mm[Hg] Britta Most RN Work Phone: [facility] 04-02-2022 17:14-0500 Heart rate 88 /min Britta Most RN Work Phone: [facility] 04-02-2022 17:14-0500 Respiratory rate 16 /min Britta Most RN Work Phone: [facility] 04-02-2022 17:14-0500 SaO2% (BldA) [Mass fraction] 98 % Britta Most RN Work Phone: [facility] 04-02-2022 17:14-0500 Systolic blood pressure 118 mm[Hg] Britta Most RN Work Phone: [facility] 03-31-2022 15:15-0500 Heart rate 110 /min Isela Patrizia SCOOP DRIVER Work Phone: [facility] 03-31-2022 15:15-0500 SaO2% (BldA) [Mass fraction] 99 % Isela Patrizia SCOOP DRIVER Work Phone: [facility] 03-31-2022 14:40-0500 Body temperature 97.59 [degF] Isela Patrizia SCOOP DRIVER Work Phone: [facility] 03-31-2022 14:40-0500 Body weight 66.68 kg Isela Patrizia SCOOP DRIVER Work Phone: [facility] 03-31-2022 14:40-0500 Diastolic blood pressure 66 mm[Hg] Isela Patrizia SCOOP DRIVER Work Phone: [facility] 03-31-2022 14:40-0500 Respiratory rate 16 /min Isela Patrizia SCOOP DRIVER Work Phone: [facility] 03-31-2022 14:40-0500 Systolic blood pressure 114 mm[Hg] Isela Patrizia SCOOP DRIVER Work Phone: [facility] 03-30-2022 15:12-0500 Body temperature 98.01 [degF] Britta Most RN Work Phone: [facility] 03-30-2022 15:12-0500 Diastolic blood pressure 82 mm[Hg] Britta Most RN Work Phone: [facility] 03-30-2022 15:12-0500 Heart rate 84 /min Britta Most RN Work Phone: [facility] 03-30-2022 15:12-0500 Respiratory rate 16 /min Britta Most RN Work Phone: [facility] 03-30-2022 15:12-0500 SaO2% (BldA) [Mass fraction] 98 % Britta Mantilla RN Work Phone: [facility] 03-30-2022 15:12-0500 Systolic blood pressure 122 mm[Hg] Britta Mantilla RN Work Phone: [facility] 03-27-2022 14:33-0500 Heart rate 100 /min Isela Patrizia SCOOP DRIVER Work Phone: [facility] 03-27-2022 14:33-0500 SaO2% (BldA) [Mass fraction] 99 % Isela Patrizia SCOOP DRIVER Work Phone: [facility] 03-27-2022 14:14-0500 Body temperature 97.59 [degF] Isela Patrizia SCOOP DRIVER Work Phone: [facility] 03-27-2022 14:14-0500 Diastolic blood pressure 74 mm[Hg] Isela Patrizia SCOOP DRIVER Work Phone: [facility] 03-27-2022 14:14-0500 Respiratory rate 18 /min Isela Patrizia SCOOP DRIVER Work Phone: [facility] 03-27-2022 14:14-0500 Systolic blood pressure 122 mm[Hg] Isela Patrizia SCOOP DRIVER Work Phone: [facility] 03-26-2022 12:46-0500 Body temperature 97.9 [degF] Doris Rivera RN Work Phone: [facility] 03-26-2022 12:46-0500 Body weight 68.04 kg Doris Rivera RN Work Phone: [facility] 03-26-2022 12:46-0500 Diastolic blood pressure 83 mm[Hg] Doris Rivera RN Work Phone: [facility] 03-26-2022 12:46-0500 Heart rate 82 /min Doris Rivera RN Work Phone: [facility] 03-26-2022 12:46-0500 Respiratory rate 20 /min Doris Rivera RN Work Phone: [facility] 03-26-2022 12:46-0500 SaO2% (BldA) [Mass fraction] 94 % Doris Rivera RN Work Phone: [facility] 03-26-2022 12:46-0500 Systolic blood pressure 114 mm[Hg] Doris Rivera RN Work Phone: [facility] 03-25-2022 12:07-0500 Diastolic blood pressure 77 mm[Hg] Isela Patrizia SCOOP DRIVER Work Phone: [facility] 03-25-2022 12:07-0500 Heart rate 77 /min Isela Patrizia SCOOP DRIVER Work Phone: [facility] 03-25-2022 12:07-0500 SaO2% (BldA) [Mass fraction] 98 % Isela Patrizia SCOOP DRIVER Work Phone: [facility] 03-25-2022 12:07-0500 Systolic blood pressure 110 mm[Hg] Isela Patrizia SCOOP DRIVER Work Phone: [facility] 03-25-2022 11:24-0500 Body temperature 97.81 [degF] Isela Patrizia SCOOP DRIVER Work Phone: [facility] 03-25-2022 11:24-0500 Respiratory rate 18 /min Isela Patrizia SCOOP DRIVER Work Phone: [facility] 03-24-2022 10:53-0500 Body temperature 97.7 [degF] Britta Mantilla RN Work Phone: [facility] 03-24-2022 10:53-0500 Body weight 68.4 kg Britta Mantilla RN Work Phone: [facility] 03-24-2022 10:53-0500 Diastolic blood pressure 84 mm[Hg] Britta Mantilla RN Work Phone: [facility] 03-24-2022 10:53-0500 Heart rate 72 /min Britta Mantilla RN Work Phone: [facility] 03-24-2022 10:53-0500 Respiratory rate 16 /min Britta Mantilla RN Work Phone: [facility] 03-24-2022 10:53-0500 SaO2% (BldA) [Mass fraction] 98 % Britta Mantilla RN Work Phone: [facility] 03-24-2022 10:53-0500 Systolic blood pressure 124 mm[Hg] Britta Mantilla RN Work Phone: [facility] 03-23-2022 13:25-0500 Body height 167.6 cm Skyla [place] FLOW SPECIALIST.SECURITY SYSTEM INSTALLER Work Phone: [facility] 03-23-2022 13:25-0500 Body weight 70.4 kg Skyla Reinaams FLOW SPECIALIST.SECURITY SYSTEM INSTALLER Work Phone: [facility] 03-23-2022 11:27-0500 Diastolic blood pressure 77 mm[Hg] Terry Balderrama MD Work Phone: [facility] 03-23-2022 11:27-0500 Heart rate 97 /min Terry Balderrama MD Work Phone: [facility] 03-23-2022 11:27-0500 Systolic blood pressure 113 mm[Hg] Terry Balderrama MD Work Phone: [facility] 03-23-2022 11:25-0500 Body weight 68.04 kg Terry Balderrama MD Work Phone: [facility] 03-19-2022 12:03-0500 Heart rate 92 /min Isela Patrizia SCOOP DRIVER Work Phone: [facility] 03-19-2022 12:03-0500 SaO2% (BldA) [Mass fraction] 95 % Isela Patrizia SCOOP DRIVER Work Phone: [facility] 03-19-2022 11:37-0500 Body temperature 97.59 [degF] Isela Patrizia SCOOP DRIVER Work Phone: [facility] 03-19-2022 11:37-0500 Diastolic blood pressure 66 mm[Hg] Isela Patrizia SCOOP DRIVER Work Phone: [facility] 03-19-2022 11:37-0500 Respiratory rate 18 /min Isela Patrizia SCOOP DRIVER Work Phone: [facility] 03-19-2022 11:37-0500 Systolic blood pressure 116 mm[Hg] Isela Patrizia SCOOP DRIVER Work Phone: [facility] 03-19-2022 09:20-0500 Body temperature 97.3 [degF] Britta Mantilla RN Work Phone: [facility] 03-19-2022 09:20-0500 Diastolic blood pressure 76 mm[Hg] Britta Mantilla RN Work Phone: [facility] 03-19-2022 09:20-0500 Heart rate 76 /min Britta Mantilla RN Work Phone: [facility] 03-19-2022 09:20-0500 Respiratory rate 16 /min Britta Mantilla RN Work Phone: [facility] 03-19-2022 09:20-0500 SaO2% (BldA) [Mass fraction] 98 % Brittadominique Mantilla RN Work Phone: [facility] 03-19-2022 09:20-0500 Systolic blood pressure 108 mm[Hg] Britta Mantilla RN Work Phone: [facility] 03-18-2022 11:27-0500 Body temperature 96.49 [degF] Russ Monteiro MD Work Phone: [facility] 03-18-2022 11:27-0500 Body weight 71.22 kg Russ Monteiro MD Work Phone: [facility] 03-18-2022 11:27-0500 Diastolic blood pressure 66 mm[Hg] uRss Monteiro MD Work Phone: [facility] 03-18-2022 11:27-0500 Heart rate 84 /min Russ Monteiro MD Work Phone: [facility] 03-18-2022 11:27-0500 Respiratory rate 20 /min Russ Monteiro MD Work Phone: [facility] 03-18-2022 11:27-0500 SaO2% (BldA) [Mass fraction] 100 % Russ Monteiro MD Work Phone: [facility] 03-18-2022 11:27-0500 Systolic blood pressure 110 mm[Hg] Russ Monteiro MD Work Phone: [facility] 03-15-2022 15:37-0500 Body temperature 97.3 [degF] Britta Mantilla RN Work Phone: [facility] 03-15-2022 15:37-0500 Diastolic blood pressure 78 mm[Hg] Britta Mantilla RN Work Phone: [facility] 03-15-2022 15:37-0500 Heart rate 96 /min Britta Mantilla RN Work Phone: [facility] 03-15-2022 15:37-0500 Respiratory rate 16 /min Britta Mantilla RN Work Phone: [facility] 03-15-2022 15:37-0500 SaO2% (BldA) [Mass fraction] 98 % Britta Mantilla RN Work Phone: [facility] 03-15-2022 15:37-0500 Systolic blood pressure 124 mm[Hg] Britta Mantilla RN Work Phone: [facility] 03-12-2022 09:36-0500 Body temperature 97.7 [degF] Estefany Stern PT Work Phone: [facility] 03-12-2022 09:36-0500 Diastolic blood pressure 74 mm[Hg] Estefany Stern PT Work Phone: [facility] 03-12-2022 09:36-0500 Heart rate 114 /min Estefany Stern PT Work Phone: [facility] 03-12-2022 09:36-0500 Respiratory rate 18 /min Estefany Stern PT Work Phone: [facility] 03-12-2022 09:36-0500 SaO2% (BldA) [Mass fraction] 97 % Estefany HalStuart PT Work Phone: [facility] 03-12-2022 09:36-0500 Systolic blood pressure 120 mm[Hg] Estefany Stern PT Work Phone: [facility] 03-02-2022 06:35-0500 Diastolic blood pressure 78 mm[Hg] No Primary Care Physician [facility] 03-02-2022 06:35-0500 Heart rate 994 /min No Primary Care Physician [facility] 03-02-2022 06:35-0500 Respiratory rate 18 /min No Primary Care Physician [facility] 03-02-2022 06:35-0500 SaO2% (BldA) [Mass fraction] 95 % No Primary Care Physician [facility] 03-02-2022 06:35-0500 Systolic blood pressure 105 mm[Hg] No Primary Care Physician [facility] 03-02-2022 05:54-0500 Body temperature 98 [degF] No Primary Care Physician [facility] 03-02-2022 05:54-0500 Diastolic blood pressure 58 mm[Hg] No Primary Care Physician [facility] Work Phone: 03-02-2022 05:54-0500 Heart rate 110 /min No Primary Care Physician [facility] Work Phone: 03-02-2022 05:54-0500 Respiratory rate 20 /min No Primary Care Physician [facility] Work Phone: 03-02-2022 05:54-0500 SaO2% (BldA) [Mass fraction] 97 % No Primary Care Physician [facility] Work Phone: 03-02-2022 05:54-0500 Systolic blood pressure 83 mm[Hg] No Primary Care Physician [facility] Work Phone: 03-01-2022 20:13-0500 Body height 167.64 cm No Primary Care Physician [facility] 03-01-2022 20:13-0500 Body mass index (BMI) [Ratio] 28.6 kg/m2 No Primary Care Physician [facility] 03-01-2022 20:13-0500 Body weight 80.5 kg No Primary Care Physician [facility] 02-27-2022 05:44-0500 Diastolic blood pressure 72 mm[Hg] No Primary Care Physician [facility] 02-27-2022 05:44-0500 Heart rate 81 /min No Primary Care Physician [facility] 02-27-2022 05:44-0500 Respiratory rate 16 /min No Primary Care Physician [facility] 02-27-2022 05:44-0500 Systolic blood pressure 126 mm[Hg] No Primary Care Physician [facility] 02-27-2022 04:02-0500 Body height 167.64 cm No Primary Care Physician [facility] Work Phone: 02-27-2022 04:02-0500 Body mass index (BMI) [Ratio] 29.6 kg/m2 No Primary Care Physician [facility] 02-27-2022 04:02-0500 Body temperature 96.8 [degF] No Primary Care Physician [facility] 02-27-2022 04:02-0500 Body weight 83.3 kg No Primary Care Physician [facility] 02-27-2022 04:02-0500 SaO2% (BldA) [Mass fraction] 94 % No Primary Care Physician [facility] 02-26-2022 09:52-0500 Heart rate 117 /min Estefany Stern PT Work Phone: [facility] 02-26-2022 09:52-0500 SaO2% (BldA) [Mass fraction] 98 % Estefany Stern PT Work Phone: [facility] 02-26-2022 09:10-0500 Body temperature 97.7 [degF] Estefany Stern PT Work Phone: [facility] 02-26-2022 09:10-0500 Diastolic blood pressure 80 mm[Hg] Estefany Stern PT Work Phone: [facility] 02-26-2022 09:10-0500 Respiratory rate 18 /min Estefany Stern PT Work Phone: [facility] 02-26-2022 09:10-0500 Systolic blood pressure 128 mm[Hg] Estefany Stern PT Work Phone: [facility] 02-25-2022 10:12-0500 Body temperature 97.81 [degF] Jovanna Heaton RN Work Phone: [facility] 02-25-2022 10:12-0500 Diastolic blood pressure 74 mm[Hg] Jovanna Heaton RN Work Phone: [facility] 02-25-2022 10:12-0500 Heart rate 101 /min Jovanna Heaton RN Work Phone: [facility] 02-25-2022 10:12-0500 Respiratory rate 18 /min Jovanna Heaton RN Work Phone: [facility] 02-25-2022 10:12-0500 SaO2% (BldA) [Mass fraction] 95 % Jovanna Heaton RN Work Phone: [facility] 02-25-2022 10:12-0500 Systolic blood pressure 142 mm[Hg] Jovanna Heaton RN Work Phone: [facility] 02-01-2022 16:43-0500 Diastolic blood pressure 72 mm[Hg] No Primary Care Physician [facility] 02-01-2022 16:43-0500 Heart rate 93 /min No Primary Care Physician [facility] 02-01-2022 16:43-0500 Respiratory rate 18 /min No Primary Care Physician [facility] 02-01-2022 16:43-0500 SaO2% (BldA) [Mass fraction] 92 % No Primary Care Physician [facility] 02-01-2022 16:43-0500 Systolic blood pressure 118 mm[Hg] No Primary Care Physician [facility] 02-01-2022 16:35-0500 Inhaled oxygen flow rate 2 L/min No Primary Care Physician [facility] 02-01-2022 16:30-0500 Body temperature 96 [degF] No Primary Care Physician [facility] 02-01-2022 13:45-0500 Body height 167.64 cm No Primary Care Physician [facility] Work Phone: 02-01-2022 13:45-0500 Body mass index (BMI) [Ratio] 32.3 kg/m2 No Primary Care Physician [facility] 02-01-2022 13:45-0500 Body weight 90.71 kg No Primary Care Physician [facility] 01-30-2022 11:08-0500 Diastolic blood pressure 70 mm[Hg] Britta Mantilla RN Work Phone: [facility] 01-30-2022 11:08-0500 Systolic blood pressure 102 mm[Hg] Britta Mantilla RN Work Phone: [facility] 01-30-2022 10:28-0500 Body temperature 98.1 [degF] Britta Mantilla RN Work Phone: [facility] 01-30-2022 10:28-0500 Heart rate 64 /min Britta Mantilla RN Work Phone: [facility] 01-30-2022 10:28-0500 Respiratory rate 16 /min Brittadominique Mantilla RN Work Phone: [facility] 01-30-2022 10:28-0500 SaO2% (BldA) [Mass fraction] 98 % Brittadominique Mantilla RN Work Phone: [facility] 01-09-2022 10:02-0500 Body height 167.64 cm No Primary Care Physician [facility] Work Phone: 01-07-2022 08:47-0500 Diastolic blood pressure 78 mm[Hg] Pacc 4 Work Phone: [facility] 01-07-2022 08:47-0500 Systolic blood pressure 150 mm[Hg] Pacc 4 Work Phone: [facility] 01-07-2022 07:54-0500 Body height 167.6 cm Pacc 4 Work Phone: [facility] 01-07-2022 07:54-0500 Body temperature 97.59 [degF] Pac 4 Work Phone: [facility] 01-07-2022 07:54-0500 Body weight 88.63 kg Pac 4 Work Phone: [facility] 01-07-2022 07:54-0500 Heart rate 47 /min Pac 4 Work Phone: [facility] 01-07-2022 07:54-0500 SaO2% (BldA) [Mass fraction] 97 % Pac 4 Work Phone: [facility] 12-10-2021 09:50-0400 Body height 167.6 cm ANTONI Cheung MD Work Phone: [facility] 12-10-2021 09:50-0400 Body weight 85.73 kg ANTONI Cheung MD Work Phone: [facility] 09-17-2021 14:46-0400 Body height 167.6 cm ANTONI Cheung MD Work Phone: [facility] 09-17-2021 14:46-0400 Body weight 84.82 kg ANTONI Cheung MD Work Phone: [facility] 07-18-2021 12:41-0400 Body temperature 97.11 [degF] Alexia Rao FLOW SPECIALIST.SECURITY SYSTEM INSTALLER Work Phone: [facility] 07-18-2021 12:41-0400 Body weight 85.96 kg Alexia Rao FLOW SPECIALIST.SECURITY SYSTEM INSTALLER Work Phone: [facility] 07-18-2021 12:41-0400 Diastolic blood pressure 72 mm[Hg] Alexia Rao FLOW SPECIALIST.SECURITY SYSTEM INSTALLER Work Phone: [facility] 07-18-2021 12:41-0400 Heart rate 52 /min Alexia Rao FLOW SPECIALIST.SECURITY SYSTEM INSTALLER Work Phone: [facility] 07-18-2021 12:41-0400 SaO2% (BldA) [Mass fraction] 97 % [place] Rao FLOW SPECIALIST.SECURITY SYSTEM INSTALLER Work Phone: [facility] 07-18-2021 12:41-0400 Systolic blood pressure 131 mm[Hg] Alexia Rao FLOW SPECIALISTBOGDAN Work Phone: [facility] 07-15-2021 14:15-0400 Diastolic blood pressure 84 mm[Hg] Marisela Rome MD, MD Work Phone: [facility] 07-15-2021 14:15-0400 Heart rate 58 /min Marisela Rome MD, MD Work Phone: [facility] 07-15-2021 14:15-0400 Systolic blood pressure 177 mm[Hg] Marisela Rome MD, MD Work Phone: [facility] 07-15-2021 14:12-0400 Body temperature 97.81 [degF] Marisela Rome MD, MD Work Phone: [facility] 07-15-2021 14:12-0400 Body weight 86.86 kg Marisela Rome MD, MD Work Phone: [facility] 07-15-2021 14:12-0400 Respiratory rate 15 /min Marisela Rome MD, MD Work Phone: [facility] 07-15-2021 14:12-0400 SaO2% (BldA) [Mass fraction] 99 % Marisela Rome MD, MD Work Phone: [facility] 07-08-2021 13:39-0400 Body temperature 97 [degF] Marisela Rome MD, MD Work Phone: [facility] 07-08-2021 13:39-0400 Body weight 86.64 kg Marisela Rome MD, MD Work Phone: [facility] 07-08-2021 13:39-0400 Diastolic blood pressure 77 mm[Hg] Marisela Rome MD, MD Work Phone: [facility] 07-08-2021 13:39-0400 Heart rate 70 /min Marisela Rome MD, MD Work Phone: [facility] 07-08-2021 13:39-0400 SaO2% (BldA) [Mass fraction] 94 % Marisela Rome MD, MD Work Phone: [facility] 07-08-2021 13:39-0400 Systolic blood pressure 146 mm[Hg] Marisela Rome MD, MD Work Phone: [facility] 07-04-2021 12:35-0400 Body temperature 97.39 [degF] Alexia Rao FLOW SPECIALIST.SECURITY SYSTEM INSTALLER Work Phone: [facility] 07-04-2021 12:35-0400 Body weight 87.54 kg [place] Rao FLOW SPECIALIST.SECURITY SYSTEM INSTALLER Work Phone: [facility] 07-04-2021 12:35-0400 Diastolic blood pressure 64 mm[Hg] Alexia Rao FLOW SPECIALIST.SECURITY SYSTEM INSTALLER Work Phone: [facility] 07-04-2021 12:35-0400 Heart rate 52 /min [place] Rao FLOW SPECIALIST.SECURITY SYSTEM INSTALLER Work Phone: [facility] 07-04-2021 12:35-0400 SaO2% (BldA) [Mass fraction] 99 % [place] Rao FLOW SPECIALIST.SECURITY SYSTEM INSTALLER Work Phone: [facility] 07-04-2021 12:35-0400 Systolic blood pressure 111 mm[Hg] Alexia Rao FLOW SPECIALIST.SECURITY SYSTEM INSTALLER Work Phone: [facility] 07-01-2021 13:56-0400 Diastolic blood pressure 71 mm[Hg] Marisela Rome MD, MD Work Phone: [facility] 07-01-2021 13:56-0400 Heart rate 54 /min Marisela Rome MD, MD Work Phone: [facility] 07-01-2021 13:56-0400 Systolic blood pressure 146 mm[Hg] Marisela Rome MD, MD Work Phone: [facility] 07-01-2021 13:31-0400 Body temperature 97 [degF] Marisela Rome MD, MD Work Phone: [facility] 07-01-2021 13:31-0400 Body weight 87.09 kg Marisela Rome MD, MD Work Phone: [facility] 07-01-2021 13:31-0400 Respiratory rate 15 /min Marisela Rome MD, MD Work Phone: [facility] 07-01-2021 13:31-0400 SaO2% (BldA) [Mass fraction] 99 % Marisela Rome MD, MD Work Phone: [facility] 06-24-2021 13:59-0400 Body temperature 97.11 [degF] Marisela Rome MD, MD Work Phone: [facility] 06-24-2021 13:59-0400 Body weight 87.32 kg Marisela Rome MD, MD Work Phone: [facility] 06-24-2021 13:59-0400 Diastolic blood pressure 69 mm[Hg] Marisela Rome MD, MD Work Phone: [facility] 06-24-2021 13:59-0400 Heart rate 61 /min Marisela Rome MD, MD Work Phone: [facility] 06-24-2021 13:59-0400 Respiratory rate 16 /min Marisela Rome MD, MD Work Phone: [facility] 06-24-2021 13:59-0400 SaO2% (BldA) [Mass fraction] 98 % Marisela Rome MD, MD Work Phone: [facility] 06-24-2021 13:59-0400 Systolic blood pressure 152 mm[Hg] Marisela Rome MD, MD Work Phone: [facility] 06-18-2021 08:45-0400 Body temperature 97.5 [degF] Helen Lakhani DO Work Phone: [facility] 06-18-2021 08:45-0400 Body weight 89.36 kg Helen Lakhani DO Work Phone: [facility] 06-18-2021 08:45-0400 Diastolic blood pressure 67 mm[Hg] Helen Masci DO Work Phone: [facility] 06-18-2021 08:45-0400 Heart rate 60 /min Helen Lakhani DO Work Phone: [facility] 06-18-2021 08:45-0400 SaO2% (BldA) [Mass fraction] 98 % Helen Lakhani Mumumío Work Phone: [facility] 06-18-2021 08:45-0400 Systolic blood pressure 150 mm[Hg] Helen Lakhani DO Work Phone: [facility] 06-09-2021 08:54-0400 Body height 168.91 cm [facility] Work Phone: 06-09-2021 08:54-0400 Body mass index (BMI) [Ratio] 30.9 kg/m2 [facility] Work Phone: 06-09-2021 08:54-0400 Body temperature 97 [degF] [facility] Work Phone: 06-09-2021 08:54-0400 Body weight 88.45 kg [facility] Work Phone: 06-09-2021 08:54-0400 Diastolic blood pressure 72 mm[Hg] [facility] Work Phone: 06-09-2021 08:54-0400 Heart rate 52 /min [facility] Work Phone: 06-09-2021 08:54-0400 Respiratory rate 18 /min [facility] Work Phone: 06-09-2021 08:54-0400 SaO2% (BldA) [Mass fraction] 97 % [facility] Work Phone: 06-09-2021 08:54-0400 Systolic blood pressure 141 mm[Hg] [facility] Work Phone: 06-06-2021 13:26-0400 Body height 168 cm Helen Lakhani Mumumío Work Phone: [facility] 06-06-2021 13:26-0400 Body temperature 96.91 [degF] Helen Lakhani DO Work Phone: [facility] 06-06-2021 [id number] Body weight 89.36 kg Helen Lakhani DO Work Phone: [facility] 06-06-2021 13:26-0400 Diastolic blood pressure 74 mm[Hg] Helen Lakhani DO Work Phone: [facility] 06-06-2021 13:26-0400 Heart rate 56 /min Helen Lakhani DO Work Phone: [facility] 06-06-2021 13:26-0400 SaO2% (BldA) [Mass fraction] 97 % Helen Lakhani DO Work Phone: [facility] 06-06-2021 13:26-0400 Systolic blood pressure 170 mm[Hg] Helen Lakhani DO Work Phone: [facility] 06-02-2021 09:19-0400 Diastolic blood pressure 75 mm[Hg] Marisela Rome MD, MD Work Phone: [facility] 06-02-2021 09:19-0400 Heart rate 48 /min Marisela Rome MD, MD Work Phone: [facility] 06-02-2021 09:19-0400 Systolic blood pressure 163 mm[Hg] Marisela Rome MD, MD Work Phone: [facility] 06-02-2021 09:12-0400 Body temperature 97.2 [degF] Marisela Rome MD, MD Work Phone: [facility] 06-02-2021 09:12-0400 Body weight 89.81 kg Marisela Rome MD, MD Work Phone: [facility] 06-02-2021 09:12-0400 Respiratory rate 15 /min Marisela Rome MD, MD Work Phone: [facility] 06-02-2021 09:12-0400 SaO2% (BldA) [Mass fraction] 98 % Marisela Rome MD, MD Work Phone: [facility] 05-29-2021 11:10-0400 Body temperature 97.2 [degF] Susu Huitron MD Work Phone: [facility] 05-29-2021 11:10-0400 Diastolic blood pressure 79 mm[Hg] Susu Huitron MD Work Phone: [facility] 05-29-2021 11:10-0400 Heart rate 51 /min Susu Huitron MD Work Phone: [facility] 05-29-2021 11:10-0400 Respiratory rate 16 /min Susu Huitron MD Work Phone: [facility] 05-29-2021 11:10-0400 SaO2% (BldA) [Mass fraction] 98 % Susu Huitron MD Work Phone: [facility] 05-29-2021 11:10-0400 Systolic blood pressure 135 mm[Hg] Susu Huitron MD Work Phone: [facility] 05-29-2021 11:04-0400 Body weight 88.72 kg Susu Huitron MD Work Phone: [facility] 05-29-2021 10:07-0400 Body height 167.6 cm Caty Bowens MD Work Phone: [facility] 05-29-2021 10:07-0400 Body temperature 97.2 [degF] Caty Bowens MD Work Phone: [facility] 05-29-2021 10:07-0400 Body weight 89.36 kg Caty Bowens MD Work Phone: [facility] 05-29-2021 10:07-0400 Diastolic blood pressure 79 mm[Hg] Caty Bowens MD Work Phone: [facility] 05-29-2021 10:07-0400 Heart rate 51 /min Caty Bowens MD Work Phone: [facility] 05-29-2021 10:07-0400 Respiratory rate 16 /min Caty Bowens MD Work Phone: [facility] 05-29-2021 10:07-0400 SaO2% (BldA) [Mass fraction] 98 % Caty Bowens MD Work Phone: [facility] 05-29-2021 10:07-0400 Systolic blood pressure 135 mm[Hg] Caty Bowens MD Work Phone: [facility] 02-10-2021 14:16-0500 Body height 66.04 cm No [facility] Work Phone: 02-10-2021 14:16-0500 Body mass index (BMI) [Ratio] 211.46 kg/m2 No [facility] Work Phone: 02-10-2021 14:16-0500 Body surface area Derived from formula 1.03 m2 No PCP [facility] Work Phone: 02-10-2021 14:16-0500 Body temperature 97.1 [degF] No PCP None -Otolaryngolo [facility] [address] Work Phone: 02-10-2021 14:16-0500 Body weight 92.22 kg No PCP None -Otolaryngolog [facility] [address] Work Phone: 08-12-2020 11:33-0400 Body height 165.1 cm No PCP [facility] [address] Work Phone: 08-12-2020 11:33-0400 Body mass index (BMI) [Ratio] 32.79 kg/m2 No PCP [facility] Work Phone: 08-12-2020 11:33-0400 Body surface area Derived from formula 1.97 m2 No PCP None [facility] Work Phone: 08-12-2020 11:33-0400 Body weight 89.39 kg No PCP None -Otolaryngolog y- [facility] [address] Work Phone: Encounters Encounter Date Encounter Type Care Provider Facility Start: 01-03-2025 Encounter for other preprocedural examination [facility] Start: 01-02-2025 End: 01-03-2025 ambulatory [facility] [place] [facility] Facility:[facility] Start: 01-02-2025 ambulatory [facility] Facility:[facility] Start: 12-26-2024 End: 12-26-2024 ambulatory KATY FAUST Facility:[facility] Start: 12-26-2024 Encounter for other preprocedural examination SRINIVASAN DA SILVA [facility] Start: 12-22-2024 End: 12-22-2024 ambulatory [facility] Facility:[facility] Start: 11-29-2024 End: 11-29-2024 Patient encounter procedure Carlos Trujillo ELECTRICAL MECHANICAL TECHNICIAN-C -[facility] Work Phone: Start: 11-29-2024 End: 11-29-2024 Patient encounter status Carlos Trujillo ELECTRICAL MECHANICAL TECHNICIAN-C [facility] Start: 11-29-2024 End: 11-29-[address] Katy Faust MD Work Phone: -[facility] Start: 11-15-2024 ambulatory Carlos Trujillo ELECTRICAL MECHANICAL TECHNICIAN Facility :[facility] Start: 10-26-2024 End: 10-27-2024 Admission to same day surgery center Katy Faust MD Work Phone: [facility] Comment on above: Spinal surgery for s tenosis Start: 10-26-2024 End: 10-27-2024 ambulatory Katy Faust MD Work Phone: [facility] Start: 10-13-2024 End: 10-13-[address] Howard Siddiqui MD -[facility] Work Phone: Start: 10-13-2024 End: 10-13-[address] Katy Faust MD Work Phone: -[facility] Start: 10-10-2024 Non-patient / Non-visit Dr. Raghu boothe MD -[facility] Start: 10-10-2024 End: 10-10-[address] Katy Faust MD Work Phone: -[facility] Start: 10-10-2024 End: 10-10-2024 Patient encounter procedure Naty CAMACHO -Cardiovascular Services Work Phone: Start: 10-10-2024 End: 10-10-2024 ambulatory Katy Faust Facility:[facility] Start: 09-22-2024 End: 09-22-2024 ambulatory Howard Siddiqui Facility:[facility] Start: 09-22-2024 End: 09-22-[address] Howard Siddiqui MD -Physical Therapy Work Phone: Start: 09-20-2024 End: 09-20-[address] Howard Siddiqui MD -[facility] Work Phone: Start: 09-20-2024 End: 09-20-2024 ambulatory Howard Siddiqui Facility:[facility] Start: 09-13-2024 End: 09-13-[address] Howard Siddiqui MD -[facility] Work Phone: Start: 09-13-2024 End: 09-13-2024 ambulatory Howard Siddiqui Facility:[facility] Start: 08-23-2024 End: 08-23-2024 Patient encounter procedure Naty CAMACHO -[facility] Work Phone: Start: 08-23-2024 End: 08-23-[address] Katy Faust MD Work Phone: [facility] Work Phone: Start: 08-15-2024 End: 08-15-2024 Patient encounter procedure Norm Parker APRN.SECURITY SYSTEM INSTALLER Work Phone: [facility] Comment on above: Tendonitis (Primary Dx); Muscle tightness; Spinal stenosis of lumbar region without neurogenic claudication; History of malignant neoplasm of rectum; Presence of ileostomy (HCC) Start: 08-15-2024 End: 08-15-2024 ambulatory NORM ELENA Facility:[facility] Start: 08-13-2024 End: 10-31-2024 E-mail encounter from caregiver Katy Faust MD Work Phone: [facility] Start: 08-13-2024 End: 10-31-2024 Patient encounter procedure Katy Faust MD Work Phone: [facility] Comment on above: Appointment Request Start: 08-03-2024 End: 08-08-2024 ambulatory [facility] Provider [facility] Comment on above: [facility]omy pouches from [facility] Start: 08-01-2024 Non-patient / Non-visit Dr. Raghu boothe MD -[facility] Start: 08-01-2024 End: 08-01-[address] Katy Faust MD Work Phone: [facility] Work Phone: Start: 08-01-2024 End: 08-01-2024 Patient encounter procedure Naty CAMACHO -Cardiovascular Services Work Phone: Start: 07-31-2024 End: 07-31-2024 Nursing evaluation of patient and report [facility] Work Phone: Colorectal Surgery Comment on above: Attention to ileosto my (HCC) (Primary Dx) Start: 07-31-2024 End: 08-01-2024 ambulatory KATY FAUST Facility:[facility] Start: 07-17-2024 End: 07-17-2024 Nursing evaluation of patient and report [facility] Work Phone: Colorectal Surgery Comment on above: Attention to ileosto my (HCC) (Primary Dx) Start: 07-17-2024 End: 07-17-2024 ambulatory KATY FAUST Facility:[facility] Start: 07-06-2024 End: 07-06-[address] Howard Siddiqui MD -[facility] Work Phone: Start: 07-06-2024 End: 07-06-2024 ambulatory Howard Siddiqui Facility:[facility] Start: 07-05-2024 End: 07-05-2024 Telephone encounter Katy Faust MD Work Phone: [facility] Comment on above: Patient Update Start: 07-05-2024 End: 07-05-2024 Patient encounter procedure Norm Singletaryr FLOW SPECIALIST.SECURITY SYSTEM INSTALLER Work Phone: [facility] Comment on above: Skin ulcer of abdome n, with fat layer exposed (HCC) (Primary Dx); Presence of ileostomy (HCC); Anal squamous cell carcinoma (HCC) Start: 07-05-2024 End: 07-05-2024 ambulatory NORM PARKER Facility:[facility] Start: 07-03-2024 End: 07-03-2024 ambulatory Katy Faust MD Work Phone: [facility] Comment on above: Ulcer Start: 05-31-2024 End: 05-31-2024 ambulatory KATY FAUST Facility:[facility] Start: 05-31-2024 End: 05-31-2024 Office outpatient visit 25 minutes Katy Faust MD Work Phone: [facility] Comment on above: Spinal stenosis of l umbar region with neurogenic claudication (Primary Dx); Lumbar radiculopathy; Pain in both lower extremities; Bilateral lower extremity edema; Presence of ileostomy (HCC) Start: 05-25-2024 End: 05-26-2024 ambulatory Katy Faust MD Work Phone: [facility] Comment on above: Edema and the limite d use of my legs. Start: 04-25-2024 End: 04-25-2024 Emergency department patient visit Dr. Donovan Mccabe DO -Emergency Department Work Phone: Start: 04-21-2024 End: 04-21-[address] Howard Siddiqui MD -[facility] Work Phone: Start: 04-21-2024 End: 04-21-2024 ambulatory Howard Siddiqui Facility:[facility] Start: 03-27-2024 End: 03-27-2024 Subsequent hospital visit by physician [facility] Comment on above: Acoustic neuroma (Mu lti) Start: 03-27-2024 End: 03-27-2024 ambulatory GISELA HAYES [facility] Start: 03-02-2024 End: 03-02-2024 ambulatory Zaira De Jesus Facility:[facility] Start: 02-25-2024 ambulatory Raghu Reynolds Facility:[facility] Start: 02-25-2024 End: 02-25-2024 ambulatory Naty Amato Facility:[facility] Start: 02-18-2024 End: 02-18-2024 ambulatory Robbie Dorina LAUREANO [facility] Start: 02-18-2024 End: 02-18-2024 Patient encounter procedure Robbie Cam [facility] Comment on above: Population Health Na vigation Outreach (ACO WORKBENC LEA/) Start: 02-14-2024 End: 02-28-2024 ambulatory Katy Faust MD Work Phone: [facility] Comment on above: Flank pain. Start: 02-14-2024 End: 02-14-2024 Telephone encounter Katy Faust MD Work Phone: [facility] [place] Comment on above: Patient Update Start: 02-03-2024 End: 02-03-2024 ambulatory Howard Siddiqui Facility:[facility] Start: 01-18-2024 End: 01-19-2024 ambulatory Howardalicia Siddiqui Facility:[facility] Start: 01-18-2024 ambulatory Howard Siddiqui [facility] Start: 01-11-2024 End: 01-11-2024 ambulatory Howard Siddiqui Facility:[facility] Start: 01-05-2024 End: 01-05-2024 ambulatory Howard Siddiqui Facility:[facility] Start: 01-04-2024 End: 01-04-2024 Patient encounter procedure Norm Parker APRN.CNP Work Phone: [facility] Comment on above: Cervical radiculopat hy (Primary Dx); Spinal stenosis in cervical region; Protrusion of cervical intervertebral disc; Pre-op evaluation; Status post coronary artery bypass graft; PVD (peripheral vascular disease) (HCC); History of DVT (deep vein thrombosis) Start: 01-04-2024 End: 01-04-2024 Preprocedural examination done Norm Parker APRN.SECURITY SYSTEM INSTALLER Work Phone: [facility] Start: 01-04-2024 End: 01-04-2024 ambulatory KATY FAUST Facility:[facility] Start: 01-04-2024 Encounter for other preprocedural examination NORM PARKER [facility] Start: 12-22-2023 End: 12-22-2023 Telephone encounter Katy Faust MD Work Phone: [facility] Start: 11-30-2023 End: 11-30-2023 Patient encounter procedure Norm Parker APRN.SECURITY SYSTEM INSTALLER Work Phone: [facility] [place] Comment on above: Chronic left shoulde r pain (Primary Dx) Start: 11-29-2023 End: 11-29-2023 Telephone encounter Katy Faust MD Work Phone: [facility] [place] Comment on above: Patient Question (le ft shoulder pain 12/08) Start: 11-09-2023 End: 11-10-2023 Admission to same day surgery center Ramiro Cheung MD Work Phone: Colorectal Surgery Comment on above: Opening beneath my s abel. Start: 11-09-2023 End: 11-10-2023 ambulatory Ramiro Cheung MD Work Phone: Colorectal Surgery Start: 10-22-2023 End: 11-09-2023 Refill Katy Faust MD Work Phone: [facility] Comment on above: Refill Request Start: 10-18-2023 End: 11-09-2023 ambulatory Katy Faust MD Work Phone: [facility] [place] Comment on above: ostomy bags Start: 09-24-2023 Telephone encounter Linda iqbal APRN.SECURITY SYSTEM INSTALLER Work Phone: Pre Anesthesia Start: 09-22-2023 End: 09-22-2023 Subsequent hospital visit by physician Mri 6 Radio Main Q (I-Stat/1.5t/3t) Work Phone: MRI Q Comment on above: History of rectal ca ncer [Z85.048] Start: 09-22-2023 End: 09-22-2023 Admission to establishment Pacc Main 1 Work Phone: Pre Anesthesia Start: 09-22-2023 End: 09-22-2023 Anesthesia consultation Pacc Main 1 Work Phone: Pre Anesthesia Comment on above: Preoperative examina tion (Primary Dx); History of rectal cancer; Acoustic neuroma (HCC); 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, unspecified whether [place] or transplanted heart (HCC); History of pulmonary embolism; Bilateral carotid artery stenosis; PVD (peripheral vascular disease) (HCC); History of DVT (deep vein thrombosis); Rectal cancer (HCC) Start: 09-22-2023 End: 09-22-2023 Preprocedural examination done Pacc Main 1 Work Phone: [facility] Work Phone: Start: 09-22-2023 End: 09-22-2023 Patient encounter procedure I Dutch Cheung MD Work Phone: Colorectal Surgery Comment on above: History of rectal ca ncer (Primary Dx) Start: 08-16-2023 Admission to [facility] [place] I Dutch Cheung MD Work Phone: Colorectal Surgery Comment on above: MRI of lower spine. Start: 08-16-2023 ambulatory I Dutch Cheung MD Work Phone: Colorectal Surgery Start: 08-03-2023 Admission to [facility] center I Dutch Cheung MD Work Phone: Colorectal Surgery Start: 08-03-2023 ambulatory I Dutch Cheung MD Work Phone: Colorectal Surgery Start: 08-02-2023 ambulatory Katy beard MD Work Phone: [facility] [place] Comment on above: Ostomy pouches from [facility] Start: 07-30-2023 Telephone encounter Ashlyn Sullivan RN Colorectal Surgery Comment on above: Schedule Surgery Start: 07-28-2023 End: 07-28-2023 Admission to same day surgery center I Dutch Cheung MD Work Phone: Colorectal Surgery Comment on above: History of rectal ca ncer (Primary Dx) Start: 07-28-2023 End: 07-28-2023 Telemedicine consultation with patient I Dutch Cheung MD Work Phone: Colorectal Surgery Start: 07-20-2023 Admission to same da y surgery center I Dutch Cheung MD Work Phone: Colorectal Surgery Comment on above: Appointment tomorrow 07/21/2023 Start: 07-20-2023 ambulatory I Dutch Cheung MD Work Phone: Colorectal Surgery Start: 07-14-2023 End: 07-14-2023 ambulatory SABRINA MUÑIZ [facility] Start: 07-14-2023 End: 07-14-2023 Office outpatient new 60 minutes Sabrina Muñiz MD Work Phone: [facility] Comment on above: Rectal bleeding (Nalini la Dx); History of rectal cancer; Colorectal anastomotic stricture Start: 07-08-2023 End: 07-08-2023 Admission to same day surgery center Dr. Katy Faust Work Phone: [facility]Special Procedures Work Phone: Start: 07-08-2023 End: 07-08-[address] 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 Katy Faust Work Phone: [facility] Work Phone: Start: 06-11-2023 Orders Only Michael Christian MD Work Phone: Orthopaedics Comment on above: Pain in left arm (Pr imary Dx) Start: 06-04-2023 Non-patient / Non-visit Dr. Carey Faust Work Phone: [facility] Start: 06-04-2023 End: 06-04-[address] Katy Faust Work Phone: [facility] Work Phone: Start: 06-04-2023 End: 06-04-[address] Katy Faust Work Phone: [facility] Work Phone: Start: 05-31-2023 End: 05-31-2023 Patient encounter procedure Mary Anne Alejandro FLOW SPECIALIST.SECURITY SYSTEM INSTALLER Work Phone: [facility] Comment on above: Ingrown nail of grea t toe (Primary Dx) Start: 05-20-2023 End: 05-20-[address] Katy Faust Work Phone: [facility] Vascular Surgery Work Phone: Start: 05-05-2023 End: 05-05-[address] Katy Faust Work Phone: [facility] Work Phone: Start: 04-27-2023 End: 04-27-2023 [facility] Work Phone: [facility] Comment on above: Acute deep vein thro mbosis (DVT) of proximal vein of left lower extremity (HCC) (Primary Dx) Start: 04-21-2023 ambulatory Katy beard MD Work Phone: [facility] Start: 04-21-2023 Patient encounter procedure Katy Faust MD Work Phone: [facility] [place] Comment on above: Referral Start: 04-13-2023 End: 04-13-2023 Anticoagulant drug monitoring [facility] Work Phone: [facility] Comment on above: Acute deep vein thro mbosis (DVT) of proximal vein of left lower extremity (HCC) (Primary Dx) Start: 03-24-2023 End: 03-24-2023 Subsequent hospital visit by physician [facility] Comment on above: Acoustic neuroma (CM S/HCC) Start: 03-24-2023 End: 03-24-2023 ambulatory GISELAPILI HAYES [facility] Start: 12-30-2022 Refill Norm Parker APRN.CNP Work Phone: [facility] [place] Comment on above: Refill Request Start: 12-29-2022 End: 12-29-2022 Anticoagulant drug monitoring [facility] Work Phone: [facility] Comment on above: Acute deep vein thro mbosis (DVT) of proximal vein of left lower extremity (HCC) (Primary Dx) Start: 12-15-2022 End: 12-15-2022 Anticoagulant drug monitoring [facility] Work Phone: [facility] Comment on above: Acute deep vein thro mbosis (DVT) of proximal vein of left lower extremity (HCC) (Primary Dx) Start: 12-03-2022 ambulatory JUSTIN WILLIAM Facility: [facility] Start: 12-03-2022 End: 12-03-2022 Subsequent hospital visit by physician Justin William MD Work Phone: [facility] Radiology Comment on above: S/P IVC filter [Z95. 828] Start: 11-27-[address] [facility] Radiology Comment on above: Radiology Pre Proced ure Instructions Start: 11-17-2022 End: 11-17-2022 Anticoagulant drug monitoring [facility] Work Phone: [facility] Comment on above: Acute deep vein thro mbosis (DVT) of proximal vein of left lower extremity (HCC) (Primary Dx) Start: 11-16-2022 Telephone encounter Stoma Ther apy Work Phone: Colorectal Surgery Start: 11-15-2022 ambulatory I Dutch Cheung MD Work Phone: Colorectal Surgery Comment on above: Stoma Start: 11-03-2022 Telephone encounter Terry Balderrama MD Work Phone: Vascular Medicine Comment on above: Appointment Start: 11-03-2022 End: 11-03-2022 Anticoagulant drug monitoring [facility] Work Phone: [facility] Comment on above: Acute deep vein thro mbosis (DVT) of proximal vein of left lower extremity (HCC) (Primary Dx) Start: 11-03-2022 End: 11-03-2022 Patient encounter procedure Terry Balderrama MD Work Phone: Vascular Medicine Comment on above: 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) (Primary Dx); S/P IVC filter; Current use of prison anticoagulation; Bruit of right carotid artery; Atherosclerosis of aorta (HCC) Start: 10-22-2022 Telephone encounter Robert nunez MD Work Phone: [facility] Comment on above: Appointment Start: 10-01-2022 Telephone encounter Yessica wilson APRN.SECURITY SYSTEM INSTALLER Work Phone: [facility] Comment on above: Patient Question Start: 09-30-2022 Telephone encounter Yessica wilson APRN.SECURITY SYSTEM INSTALLER Work Phone: [facility] Comment on above: Appointment Deep vein thrombosis (DVT) of both lower extremities, unspecified chronicity, unspecified vein (HCC) (Primary Dx); 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) Start: 09-23-2022 ambulatory Katy beard MD Work Phone: [facility] [place] Comment on above: colon tissue in stoo l Start: 09-07-2022 End: 09-07-2022 Anticoagulant drug monitoring [facility] Work Phone: [facility] Comment on above: Acute deep vein thro mbosis (DVT) of proximal vein of left lower extremity (HCC) (Primary Dx) Start: 08-25-2022 End: 08-25-2022 Anticoagulant drug monitoring [facility] Work Phone: [facility] Comment on above: Acute deep vein thro mbosis (DVT) of proximal vein of left lower extremity (HCC) (Primary Dx) Start: 08-17-2022 ambulatory Ramiro Cheung MD Work Phone: Colorectal Surgery Comment on above: Bleeding Start: 08-16-2022 ambulatory Ramiro Cheung MD Work Phone: Colorectal Surgery Comment on above: Bleeding Start: 08-11-2022 End: 08-11-2022 [facility] Work [facility] Comment on above: Acute deep vein thro mbosis (DVT) of proximal vein of left lower extremity (HCC) (Primary Dx) Start: 08-03-2022 Telephone encounter Katy dasilva MD Work Phone: [facility] Comment on above: Orders (protime) Start: 08-03-2022 End: 08-03-2022 [facility] Work Phone[facility] Comment on above: Acute deep vein thro mbosis (DVT) of proximal vein of left lower extremity (HCC) (Primary Dx) Start: 07-25-2022 Telephone encounter Katy dasilva MD Work Phone: [facility] [place] Comment on above: Anticoagulation Start: 07-08-2022 Telephone encounter Norm horan APRN.SECURITY SYSTEM INSTALLER Work Phone: [facility] [place] Comment on above: need office notes ch anged Start: 06-16-2022 ambulatory Katy beard MD Work Phone: [facility] [place] Comment on above: [facility] Start: 06-04-2022 Anticoagulant drug monitoring Terry Balderrama MD Work Phone: Vascular Medicine Comment on above: anticoagulation Start: 06-04-2022 E-mail encounter fro m caregiver Terry Balderrama MD Work Phone: [facility] Start: 05-25-2022 Telephone encounter Katy dasilva MD Work Phone: [facility] [place] Comment on above: Jury duty letter Start: 05-23-2022 ambulatory I Dutch Cheung MD Work Phone: Colorectal Surgery Comment on above: Bleeding Start: 05-22-2022 ambulatory Terry Balderrama MD Work Phone: Vascular Medicine Comment on above: Ultrasound Start: 05-20-2022 End: 05-20-2022 Nursing evaluation of patient and report [facility] Work Phone: Colorectal Surgery Comment on above: Attention to ileosto my (HCC) (Primary Dx) Start: 05-20-2022 End: 05-20-2022 Patient encounter procedure Ramiro Cheung MD Work Phone: Colorectal Surgery Comment on above: History of rectal ca ncer (Primary Dx); 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) Start: 05-20-2022 End: 05-20-2022 Patient encounter procedure Terry Balderrama MD Work Phone: Vascular Medicine Comment on above: History of pulmonary embolism (Primary Dx); Personal history of DVT (deep vein thrombosis); Anticoagulation management encounter; S/P IVC filter; Preoperative vascular examination; Rectal cancer (HCC) Start: 05-20-2022 End: 05-20-2022 Patient encounter status Terry Balderrama MD Work Phone: Vascular Medicine Start: 05-20-2022 End: 05-20-2022 Admission to establishment [facility] Main 5 Work Phone: [facility] Start: 05-20-2022 End: 05-20-2022 ambulatory [facility] 5 Work Phone: Pre Anesthesia Comment on above: Pre-op evaluation (P rimary Dx); Acoustic neuroma (HCC); 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, unspecified whether [place] or transplanted heart (HCC); Pulmonary embolism and infarction (HCC); Bilateral carotid artery stenosis Start: 05-20-2022 End: 05-20-2022 Preprocedural examination done [place] [id number] Work Phone: Pre Anesthesia Start: 05-20-2022 End: 05-20-2022 Subsequent hospital visit by physician [facility] Qb1 (I-Stat) Radiology Comment on above: Attention to ileosto my (HCC) [Z43.2] Start: 05-18-2022 End: 07-07-2022 Preprocedural examination done [facility] 5 Work Phone: [facility] Work Phone: Start: 04-29-2022 Telephone encounter Liz wood APRN.SECURITY SYSTEM INSTALLER Work Phone: Radiology Comment on above: Patient Update Appointment Start: 04-24-2022 Telephone encounter Leandro Brown RN Work Phone: [facility] Comment on above: Home Care (Notificat ion of home health agency discharge.) Start: 04-23-2022 End: 04-23-2022 Home visit Doris Rivera RN Work Phone: [facility] Comment on above: SN AGENCY DC W VISIT Start: 04-22-2022 End: 04-22-2022 Office outpatient visit 10 minutes Katy Faust MD Work Phone: [facility] [place] Comment on above: Iron deficiency anem ia, unspecified iron deficiency anemia type (Primary Dx); 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); History of hepatitis B; History of anemia; Status post coronary artery bypass graft; Dyslipidemia Start: 04-22-2022 End: 04-22-2022 Home visit Estefany Stern PT Work Phone: [facility] Comment on above: PT DISC DC W VISIT Start: 04-21-2022 End: 04-21-2022 Home visit Isela Acharya SCOOP DRIVER Work Phone: [facility] Comment on above: SCOOP DRIVER ROUTINE Start: 04-17-2022 End: 04-17-2022 Home visit Isela Patrizia SCOOP DRIVER Work Phone: [facility] Comment on above: SCOOP DRIVER ROUTINE CARE COORDINATION Start: 04-15-2022 End: 04-15-2022 Home visit Isela Acharya SCOOP DRIVER Work Phone: [facility] Comment on above: SCOOP DRIVER ROUTINE Start: 04-13-2022 Telephone encounter Terry Balderrama MD Work Phone: Vascular Medicine Comment on above: Patient Update Start: 04-13-2022 End: 04-13-2022 Home visit Britta Mantilla RN Work Phone: [facility] Comment on above: SN ROUTINE Start: 04-09-2022 End: 04-09-2022 Home visit Britta Mantilla RN Work Phone: [facility] Comment on above: SN ROUTINE Start: 04-08-2022 ambulatory Norm Parker APRN.SECURITY SYSTEM INSTALLER Work Phone: [facility] [place] Comment on above: Results Start: 04-08-2022 E-mail encounter fro m caregiver Norm Parker APRN.SECURITY SYSTEM INSTALLER Work Phone: [facility] Start: 04-07-2022 Telephone encounter Norm Calderon er FLOW SPECIALIST.SECURITY SYSTEM INSTALLER Work Phone: [facility] [place] Comment on above: Critical Results (/) Start: 04-07-2022 End: 04-07-2022 Home visit Isela Acharya SCOOP DRIVER Work Phone: [facility] Comment on above: SCOOP DRIVER ROUTINE Start: 04-06-2022 End: 04-06-2022 Patient encounter procedure Norm Parker FLOW SPECIALIST.SECURITY SYSTEM INSTALLER Work Phone: [facility] [place] Comment on above: Rectal malignant gila plasm (HCC) (Primary Dx); Malignant neoplasm of colon, unspecified part of colon (HCC); 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); Bilateral pulmonary embolism (HCC); Blood loss; Anemia, unspecified type; Hyperlipidemia, unspecified hyperlipidemia type; Special screening examination for viral disease; Encounter to establish care; Encounter for therapeutic drug monitoring Start: 04-06-2022 End: 04-06-2022 Home visit Britta Mantilla RN Work Phone: [facility] Comment on above: SN ROUTINE Start: 04-03-2022 End: 04-03-2022 Home visit Isela Acharya SCOOP DRIVER Work Phone: [facility] Comment on above: SCOOP DRIVER ROUTINE Start: 04-02-2022 Non-patient / Non-visit No [facility] Physician [facility] Start: 04-02-2022 End: 04-02-2022 Home visit Britta Mantilla RN Work Phone: [facility] Comment on above: SN ROUTINE Start: 04-02-2022 Non-patient / Non-visit No [facility] Physician [facility] Start: 04-02-2022 End: 04-02-2022 ambulatory No Primary Care Physician [facility] Work Phone: Start: 04-02-2022 End: 04-02-2022 Patient encounter procedure No Primary Care Physician [facility] Start: 03-31-2022 End: 03-31-2022 Home visit Isela Acharya SCOOP DRIVER Work Phone: [facility] Comment on above: SCOOP DRIVER ROUTINE Start: 03-31-2022 Telephone encounter I Dutch rangel MD Work Phone: Colorectal Surgery Comment on above: Personal Care Service Provider - O ther Start: 03-30-2022 End: 03-30-2022 Home visit Britta Mantilla RN Work Phone: [facility] Comment on above: SN ROUTINE Start: 03-27-2022 End: 03-27-2022 Home visit Isela Acharya SCOOP DRIVER Work Phone: [facility] Comment on above: SCOOP DRIVER ROUTINE Start: 03-26-2022 Telephone encounter Doris Rivera RN Work Phone: [facility] Comment on above: Home Care (Pt expres s he has noted over the past week occasional bright red blood noted when he wipes his rectum. He states it is a small amount and it comes and goes but has been steady for the past few days. He express he is gently wipes. No pain noted when wiping, but he does have occasional intermittent stabbing pain "around his rectum". He is scheduled to see hid PCP on Apr 07. In 24 hours he has noted an occasional sharp, stabbing pain random spots in his head. ) Start: 03-26-2022 End: 03-26-2022 Home visit Doris Rivera RN Work Phone: [facility] Comment on above: SN ROUTINE Start: 03-25-2022 End: 03-25-2022 Home visit Isela Acharya SCOOP DRIVER Work Phone: [facility] Comment on above: SCOOP DRIVER ROUTINE Start: 03-24-2022 End: 03-24-2022 Home visit Britta Mantilla RN Work Phone: [facility] Comment on above: SN ROUTINE Start: 03-23-2022 End: 03-23-2022 Nursing evaluation of patient and report Stoma Therapy Work Phone: Colorectal Surgery Comment on above: Attention to ileosto my (HCC) (Primary Dx) Start: 03-23-2022 End: 03-23-2022 Patient encounter procedure Terry Balderrama MD Work Phone: Vascular Medicine Comment on above: History of venous th romboembolism (Primary Dx); Presence of IVC filter; Acute blood loss anemia; Rectal cancer (HCC); Compression neuropathy Postoperative state (Primary Dx) Start: 03-19-2022 End: 03-19-2022 Home visit Isela Acharya SCOOP DRIVER Work Phone: [facility] Comment on above: SCOOP DRIVER ROUTINE SN ROUTINE Start: 03-18-2022 End: 03-18-2022 Patient encounter procedure Russ Monteiro MD Work Phone: [facility] [place] Comment on above: Anemia, unspecified type (Primary Dx); Pulmonary embolism and infarction (HCC); Hypokalemia; 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); Generalized weakness Start: 03-15-2022 End: 03-15-2022 Home visit Britta Mantilla RN Work Phone: [facility] Comment on above: SN ROUTINE Start: 03-14-2022 Home visit Savanna Galan RN Work Phone: [facility] Comment on above: CARE COORDINATION Start: 03-12-2022 Telephone encounter Leandro Brown RN Work Phone: [facility] Comment on above: Home Care (Need for home care SN EVAL for ostomy teaching and care. ) Start: 03-12-2022 End: 03-12-2022 Home visit Estefany Stern PT Work Phone: [facility] Comment on above: PT NORRIS Start: 03-05-2022 Telephone encounter Leandro Brown RN Work Phone: [facility] Comment on above: Home Care (Notificat ion of hospitalization.) Start: 03-04-2022 Telephone encounter Tejal bhakta EQUAL OPPORTUNITY COUNSELOR Work Phone: [facility] Comment on above: Home Care (Pt confir mation call ) Start: 03-03-2022 Telephone encounter Holly fernandez EQUAL OPPORTUNITY COUNSELOR Work Phone: [facility] Comment on above: Home Care ( to pinky spangler) Start: 03-03-2022 End: 03-06-2022 Home visit Leandro Cruz RN Work Phone: [facility] Comment on above: SN TRANSFER Start: 03-01-2022 End: 03-02-2022 Emergency department patient visit No Primary Care Physician [facility] Start: 03-01-2022 ambulatory Deborah Myerson RN NURSE UNDER PRESSER Comment on above: Chest Pain Start: 02-27-2022 End: 02-27-2022 Emergency department patient visit No Primary Care Physician [facility] Start: 02-26-2022 End: 02-26-2022 Home visit Estefany Stern PT Work Phone: [facility] Comment on above: PT EVAL Start: 02-26-2022 Non-patient / Non-visit No Nalini tovar [facility] Physician [facility] Start: 02-25-2022 End: 02-25-2022 Home visit Jovanna Heaton RN Work Phone: [facility] Comment on above: SN SOC Start: 02-11-2022 Telephone encounter Radha jackson Work Phone: [facility] Comment on above: Home Care (Confirmat ion Call ) Home Care (MD sebastien spangler ) Start: 2022 Telephone encounter Tejal bhakta LPN Work Phone: [facility] Comment on above: Erroneous encounter- disregard Start: 02-03-2022 Orders Only I Dutch Cheung MD Work Phone: Colorectal Surgery Comment on above: Rectal cancer (HCC) (Primary Dx) Start: 02-01-2022 ambulatory Robert Bullock APRN.SECURITY SYSTEM INSTALLER Work Phone: Critical Care Start: 02-01-2022 End: 02-01-2022 Emergency department patient visit No Primary Care Physician [facility] Start: 01-30-2022 End: 01-30-2022 Home visit Leandro Cruz RN Work Phone: [facility] Comment on above: CARE COORDINATION SN SOC Start: 01-28-2022 Telephone encounter Radha jackson Work Phone: [facility] Comment on above: Home Care (Confirmat ion Call ) Start: 01-16-2022 Non-patient / Non-visit No Nalini tovar Care Physician [facility] Start: 01-16-2022 End: 01-16-2022 ambulatory No Primary Care Physician [facility] Work Phone: Start: 01-16-2022 End: 01-16-2022 Patient encounter procedure No Primary Care Physician [facility] Start: 01-13-2022 Telephone encounter Kristel Moreira PA-C Work Phone: Pre Anesthesia Comment on above: Pre-Op Update Start: 01-12-2022 Telephone encounter Calista Mixon RN Pre Anesthesia Comment on above: PACC Start: 01-09-2022 End: 01-09-2022 Patient encounter procedure No Primary Care Physician [facility] Start: 01-07-2022 End: 01-07-2022 Orders Only Eric Hernandez MD Work Phone: Cardiology Comment on above: Pre-operative cleara nce (Primary Dx) Pre-op evaluation (P rimary Dx); Atherosclerosis of coronary artery bypass graft of [place] heart without angina pectoris; Bilateral carotid artery stenosis; Primary hypertension; Shortness of breath ; Acoustic neuroma (HCC); Essential hypertension; Rectal malignant neoplasm (HCC); Dyslipidemia Rectal cancer (HCC) [C20] Start: 01-07-2022 Preoperative state Eric monsivais MD Work Phone: Cardiology Start: 01-07-2022 End: 01-07-2022 Preprocedural examination done Pac Main 4 Work Phone: Pre Anesthesia Start: 12-11-2021 Orders Only I Dutch Cheung MD Work Phone: Colorectal Surgery Comment on above: Rectal cancer (HCC) (Primary Dx) Start: 12-10-2021 End: 12-10-2021 Patient encounter procedure I Dutch Cheung MD Work Phone: Colorectal Surgery Comment on above: Rectal cancer (HCC) (Primary Dx) Start: 09-25-2021 Telephone encounter Smitha AlcalaRn ) Eunice MEZA Colorectal Surgery Comment on above: Care Coordination Malignant neoplasm o f rectum (HCC) Start: 09-18-2021 Orders Only I Dutch Cheung MD Work Phone: Colorectal Surgery Comment on above: Squamous cell carcin jena of rectum (HCC) (Primary Dx) MRI test results. Start: 09-17-2021 End: 09-17-2021 Subsequent hospital visit by physician Mri 4 Radio Main Q (I-Stat/1.5t/3t) Work Phone: MRI Q Comment on above: Rectal malignant gila plasm (HCC) [C20] Start: 09-17-2021 End: 09-17-2021 Patient encounter procedure Ramiro Cheung MD Work Phone: Colorectal Surgery Comment on above: Rectal cancer (HCC) (Primary Dx) Start: 08-29-2021 End: 08-29-2021 Follow-up encounter Marisela Rome MD Work Phone: Radiation Oncology Comment on above: Radiotherapy follow- up (Primary Dx); Anal squamous cell carcinoma (HCC) Start: 08-29-2021 End: 08-29-2021 Telemedicine consultation with patient Marisela Rome MD, MD Work Phone: [facility] [employer] Start: 07-22-2021 ambulatory Alexia edgar APRN.SECURITY SYSTEM INSTALLER Work Phone: Hematology/Oncology Comment on above: MRI and visit with Scott Ambrocio Start: 07-21-2021 ambulatory Marisela Rome MD Work Phone: Radiation Oncology Comment on above: Patient Education Start: 07-21-2021 Patient encounter procedure Marisela Rome MD, MD Work Phone: [facility] [place] Start: 07-21-2021 Radiation Oncology Note Avril Rome MD Work Phone: Radiation Oncology Comment on above: Completion Note Start: 07-18-2021 End: 07-18-2021 ambulatory Alexia Rao APRN.SECURITY SYSTEM INSTALLER Work Phone: Hematology/Oncology Comment on above: Rectal malignant gila plasm (HCC) (Primary Dx); Anal squamous cell carcinoma (HCC) Start: 07-18-2021 End: 07-18-2021 Patient encounter procedure Alexia Rao APRN.SECURITY SYSTEM INSTALLER Work Phone: [facility] Comment on above: Appointment Start: 07-18-2021 Telephone encounter Alexia antonio APRN.SECURITY SYSTEM INSTALLER Work Phone: Hematology/Oncology Comment on above: Future Appointment Start: 07-15-2021 End: 07-15-2021 Patient encounter procedure Marisela Rome MD Work Phone: Radiation Oncology Comment on above: Anal squamous cell c arcinoma (HCC) (Primary Dx) Start: 07-10-2021 Orders Only Marisela Rome MD Work Phone: Radiation Oncology Start: 07-09-2021 Orders Only Marisela Rome MD Work Phone: Radiation Oncology Comment on above: Dysuria (Primary Dx) burning on urination Start: 07-08-2021 End: 07-08-2021 Patient encounter procedure Marisela Rome MD Work Phone: Radiation Oncology Comment on above: Anal squamous cell c arcinoma (HCC) (Primary Dx) Start: 07-07-2021 Telephone encounter Alexia antonio APRN.SECURITY SYSTEM INSTALLER Work Phone: Hematology/Oncology Comment on above: Orders Start: 07-07-2021 End: 07-07-2021 ambulatory Lab/[facility] [place] Work Phone: Hematology/Oncology Comment on above: Rectal malignant gila plasm (HCC) (Primary Dx); 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) Start: 07-04-2021 End: 07-04-2021 ambulatory Alexia Rao FLOW SPECIALIST.SECURITY SYSTEM INSTALLER Work Phone: Hematology/Oncology Comment on above: Rectal malignant gila plasm (HCC) (Primary Dx) Start: 07-04-2021 End: 07-04-2021 Patient encounter procedure Alexia Rao FLOW SPECIALIST.SECURITY SYSTEM INSTALLER Work Phone: [facility] Start: 07-01-2021 End: 07-01-2021 Specialty Pharmacy Josselyn Stanford [facility] Comment on above: SPP Oral Oncology/he matology - Medication Refill (Capecitabine x 2) Refill Request Anal squamous cell c arcinoma (HCC) (Primary Dx) Start: 06-30-2021 End: 06-30-2021 ambulatory Lab/[place] [facility] Work Phone: Hematology/Oncology Comment on above: Rectal malignant gila plasm (HCC) (Primary Dx); Anal squamous cell carcinoma (HCC) Start: 06-27-2021 Refill Caty Bowens MD Work Phone: Hematology/Oncology Comment on above: Refill Request (cape citabine) Start: 06-24-2021 End: 06-24-2021 Patient encounter procedure Marisela Rome MD Work Phone: Radiation Oncology Comment on above: Anal squamous cell c arcinoma (HCC) (Primary Dx) Start: 06-23-2021 End: 06-23-2021 ambulatory Lab[facility] [facility] Work Phone: Hematology/Oncology Comment on above: Rectal malignant gila plasm (HCC); Anal squamous cell carcinoma (HCC) Start: 06-18-2021 End: 06-18-2021 ambulatory Helen Lakhani DO Work Phone: Hematology/Oncology Comment on above: Rectal malignant gila plasm (HCC) (Primary Dx) Start: 06-18-2021 End: 06-18-2021 Patient encounter procedure Helen Lakhani DO Work Phone: [facility] Start: 06-17-2021 End: 06-17-2021 Patient encounter procedure Marisela Rome MD Work Phone: Radiation Oncology Comment on above: Anal squamous cell c arcinoma (HCC) (Primary Dx) Start: 06-17-2021 Telephone encounter Amelia Souza RN He matology/Oncology Comment on above: Personal Care Service Provider - O ther (Follow-up ) Start: 06-16-2021 End: 06-16-2021 ambulatory Lab[facility] [facility] Work Phone: Hematology/Oncology Comment on above: Rectal malignant gila plasm (HCC) (Primary Dx); Anal squamous cell carcinoma (HCC) Start: 06-12-2021 Orders Only Helen Sanford Work Phone: Hematology/Oncology Comment on above: Rectal malignant gila plasm (HCC) (Primary Dx); Anal squamous cell carcinoma (HCC) Start: 06-11-2021 Telephone encounter Financial Navigator [facility] Work Phone: Hematology/Oncology Comment on above: Benefits Investigati on Start: 06-09-2021 Telephone encounter Helen connelly DO Work Phone: Hematology/Oncology Comment on above: Patient Question Start: 06-09-2021 End: 06-09-2021 [facility] Start: 06-06-2021 Telephone encounter Helen connelly DO Work Phone: Hematology/Oncology Comment on above: Follow Up Start: 06-06-2021 End: 06-06-2021 ambulatory Helen Lakhani DO Work Phone: Hematology/Oncology Comment on above: Rectal malignant gila plasm (HCC) (Primary Dx) Start: 06-06-2021 End: 06-06-2021 Patient encounter procedure Helen Lakhani DO Work Phone: [facility] Start: 06-04-2021 Orders Only Marisela Rome MD Work Phone: Radiation Oncology Comment on above: Prostate cancer (HCC ) (Primary Dx) Erroneous encounter- disregard Start: 06-03-2021 Refill Caty Bowens MD Work Phone: Hematology/Oncology Comment on above: Refill Request Start: 06-02-2021 ambulatory Milly George [facility] Start: 06-02-2021 End: 06-02-2021 Patient encounter procedure Milly George [facility] Comment on above: SPP Oral Oncology/he matology - Treatment Referral (Capecitabine 500mg) Rectal malignant gila plasm (HCC) (Primary Dx) Start: 06-02-2021 Radiation Oncology Note Avril Rome MD Work Phone: Radiation Oncology Comment on above: Simulation Note Treatment Planning Start: 05-30-2021 ambulatory Milly George [facility] Start: 05-30-2021 Patient encounter procedure Milly George [facility] Comment on above: SPP Oral Oncology/he matology - Treatment Referral (Capecitabine 500mg & 150mg) Start: 05-29-2021 End: 05-29-2021 ambulatory Caty Bowens MD Work Phone: Hematology/Oncology Comment on above: Rectal malignant gila plasm (HCC) (Primary Dx); Anal squamous cell carcinoma (HCC) Start: 05-29-2021 End: 05-29-2021 Patient encounter procedure Caty Bowens MD Work Phone: [facility] Comment on above: Rectal malignant gila plasm (HCC) (Primary Dx); Anal squamous cell carcinoma (HCC) Start: 02-10-2021 Office outpatient vi sit 15 minutes No PCP None [facility] Work Phone: Start: 08-12-2020 Office outpatient ne w 45 minutes No PCP None FD[facility]ruipfqpngmgcq[facility] Work Phone: Evaluation finding No PCP None [facility] 4[facility] Work Phone: Procedures Date Procedure Procedure Detail Performing Clinician Start: 09-20-2024 MRI of thoracic spin e with contrast Dr. Katy Faust MD Work Phone: Start: 09-13-2024 X-ray of thoracic sp ine, three views Dr. Katy Faust MD Work Phone: Start: 04-25-[address] Katy Faust MD Work Phone: Start: 04-25-2024 Urnls dip stick/tabl et reagent auto microscopy Dr. Katy Faust MD Work Phone: Start: 04-25-[address] Katy Faust MD Work Phone: Comment on above: Previous reported re sult: 66.44 ml/minEdited by: AUTOINS on 04/25/24:1504 AMENDED REPORT 04/25/24 1504 Estimated CRCL previously reported as: 66.44 ml/min Start: 04-25-2024 Computed tomography of abdomen and pelvis with intravenous contrast Dr. Katy Faust MD Work Phone: Start: 04-21-2024 X-ray of cervical spine Dr. Katy Faust MD Work Phone: Start: 03-27-2024 Mri brain brain stem w/o w/contrast material Gisela Can MD Work Phone: Start: 06-11-2023 CT of head without contrast Dr. Katy Faust Work Phone: Start: 03-24-2023 MR IAC W AND WO IV CONTRAST GISELA CAN Start: 03-24-2023 Mri brain brain stem w/o w/contrast material Gisela Can MD Work Phone: Start: 12-03-2022 SURGICAL PATHOLOGY Justin William MD Work Phone: Start: 12-03-2022 IR INFERIOR CAVA LEIGHANN OGRAM (AV,FV,CHRISTIAN,MM,UN) Justin William MD Work Phone: Start: 12-03-2022 End: 12-03-2022 Rtrvl intrvas vc filtr w/wo acs vsl selxn rs&i Justin William MD Work Phone: Start: 12-03-2022 Prothrombin time Justin William MD Work Phone: Start: 06-04-2022 Colonoscopy Terry Morelia Balderrama MD Work Phone: Start: 05-20-2022 Radiologic exam colo n single contrast study I Dutch Cheung MD Work Phone: Start: 04-06-2022 Lipid 1996 panel - S chad or Plasma NA Rosemary VARGAS Work Phone: Start: 03-01-2022 CT angiography of ch est with contrast No Primary Care Physician Start: 02-01-2022 Computed tomography of abdomen and pelvis with intravenous contrast No Primary Care Physician Start: 02-01-2022 Plain chest X-ray No Pr imary Care Physician Start: 01-07-2022 Ct abdomen & pelvis w/contrast material I Dutch Cheung MD Work Phone: Start: 01-07-2022 Ct thorax w/contrast material I Dutch Cheung MD Work Phone: Start: 09-17-2021 Mri pelvis w/o & w/contrast material Alexia Rao APRN.SECURITY SYSTEM INSTALLER Work Phone: Start: 09-17-2021 Sigmoidoscopy flx dx w/collj spec br/wa if pfrmd Eriberto Oneill MD Work Phone: Start: 07-07-2021 Blood count complete auto&auto difrntl wbc Helen A Masci DO Work Phone: Start: 06-30-2021 Blood count complete auto&auto difrntl wbc Helen A Masci DO Work Phone: Start: 06-23-2021 Blood count complete auto&auto difrntl wbc Helen A Masci DO Work Phone: Start: 06-16-2021 Blood count complete auto&auto difrntl wbc Helen A Masci DO Work Phone: Start: 06-16-2021 Adult depression screening assessment Marisela Rome MD, MD Work Phone: Start: 04-30-2021 History of coronary artery bypass grafting Status post coronary artery bypass graft Caty Bowens MD Work Phone: Start: 03-20-2021 Colonoscopy Caty edgar MD Work Phone: Start: 05-05-2016 Adult depression screening assessment Caty Bowens MD Work Phone: Start: 08-29-1998 History of coronary artery bypass grafting S/P CABG (coronary artery bypass graft) Comment on above: CABG x3- MURPHY o LAD, RSVG to to OBM, RSVG to PDA Bacteria identified in Blood by Culture No Primary Care Physician Bacteria identified in Blood by Culture No Primary Care Physician Coronary Artery Trip le Bypass Graft No PCP None Extracaps Cataract Extract With Prosthesis Insert Left Eye No PCP None Eye Surgery No PCP None H/O: colostomy History of colostomy Dr. Samantha Faust MD Work Phone: History of coronary artery bypass grafting Status post coronary artery bypass graft Katy Faust MD Work Phone: History of coronary artery bypass grafting Status post coronary artery bypass graft Norm Parker FLOW SPECIALIST.SECURITY SYSTEM INSTALLER Work Phone: SARS-CoV-2 & FLU Ant igen (Rapid) No Primary Care Physician SARS-CoV-2 & FLU Ant igen (Rapid) No Primary Care Physician Tonsillectomy No PCP None Viral antigen assay No Prima ry Care Physician Viral antigen assay No Prima ry Care Physician Plan of Treatment Date Care Activity Detail Author Start: 06-04-2032 Colonoscopy COLONOSCOPY [facility] Start: 06-04-2032 COLORECTAL CANCER SCREENING COLORECTAL CANCER SCREENING [facility] Start: 06-04-2032 Screening for malign ant neoplasm of colon [facility] Start: 03-20-2031 Colonoscopy COLONOSCOPY [facility] Start: 03-20-2031 COLORECTAL CANCER SCREENING COLORECTAL CANCER SCREENING [facility] Start: 04-06-2027 Lipid 1996 panel - S chad or Plasma Lipid Screening [facility] Start: 04-06-2027 Lipid panel Lipid Screening [facility] Start: 04-06-2027 LIPID SCREEN LIPID SCREEN [facility] Start: 12-17-2026 DTaP/Tdap/Td Vaccine s (2 - Td or Tdap) DTaP/Tdap/Td Vaccines (2 - Td or Tdap) [facility] Start: 12-17-2026 Urine microalbumin profile [facility] Start: 12-10-2026 Screening for malign ant neoplasm of colon Sigmoidoscopy [facility] Start: 12-10-2026 SIGMOIDOSCOPY SIGMOIDOSCOPY [facility] Start: 09-21-2026 Diabetes Screening Diabetes Screenin g [facility] Start: 09-17-2026 SIGMOIDOSCOPY SIGMOIDOSCOPY [facility] Start: 11-11-2025 Diabetes Screening Diabetes Screenin g [facility] Start: 08-15-2025 Annual PCP Team [employer]om[employer] isidra Disease Visit Annual PCP Team Chronic Disease Visit [facility] Start: 07-07-2025 DIABETES SCREEN DIABETES SCREEN [facility] Start: 07-05-2025 Annual PCP Team [employer]om[employer] Coach isidra Disease Visit Annual PCP Team Chronic Disease Visit [facility] Start: 05-31-2025 Annual PCP Team Womens Volleyball Coach isidra Disease Visit Annual PCP Team Chronic Disease Visit [facility] Start: 05-20-2025 DIABETES SCREEN DIABETES SCREEN [facility] Start: 04-22-2025 DIABETES SCREEN DIABETES SCREEN [facility] Start: 04-06-2025 DIABETES SCREEN DIABETES SCREEN [facility] Start: 03-18-2025 DIABETES SCREEN DIABETES SCREEN [facility] Start: 03-10-2025 DIABETES SCREEN DIABETES SCREEN [facility] Start: 03-06-2025 DIABETES SCREEN DIABETES SCREEN [facility] Start: 03-04-2025 DIABETES SCREEN DIABETES SCREEN [facility] Start: 03-03-2025 DIABETES SCREEN DIABETES SCREEN [facility] Start: 02-11-2025 DIABETES SCREEN DIABETES SCREEN [facility] Start: 2025 DIABETES SCREEN DIABETES SCREEN [facility] Start: 2025 RSV Vaccine (1 - 1-d ose 75+ series) RSV Vaccine (1 - 1-dose 75+ series) [facility] Start: 02-04-2025 DIABETES SCREEN DIABETES SCREEN [facility] Start: 02-03-2025 DIABETES SCREEN DIABETES SCREEN [facility] Start: 01-27-2025 DIABETES SCREEN DIABETES SCREEN [facility] Start: 01-07-2025 DIABETES SCREEN DIABETES SCREEN [facility] Start: 01-03-2025 Annual PCP Team [employer]om[employer] isidra Disease Visit Annual PCP Team Chronic Disease Visit [facility] Start: 01-03-2025 Covid-19 Vaccine ( season) Covid-19 Vaccine ( season) [facility] Comment on above: Postponed from 10/30 (Declined at this time) Start: 01-03-2025 RSV Vaccine (1 - Ris k 60-74 years 1-dose series) RSV Vaccine (1 - Risk 60-74 years 1-dose series) [facility] Comment on above: Postponed from 02/09 (Declined at this time) Start: 12-25-2024 End: 12-25-2024 Patient encounter procedure 12/25/2024 1:00 PM EDT Office Visit [facility] [address] [place] [address] Srinivasan Da Silva APRN.FUEL AGENT [address] [place], [place] [address] pre op clearance appt per Dr. Siddiqui. surgery is 01/02/25. [facility] Comment on above: pre op clearance daisha t per Dr. Siddiqui. surgery is 01/02/25. Start: 11-29-2024 Annual PCP Team [employer]omens [employer] isidra Disease Visit Annual PCP Team Chronic Disease Visit [facility] Start: 11-29-2024 End: 11-29-2024 Evaluation of diagnostic study results [facility] Start: 10-30-2024 Influenza vaccination [facility] Start: 08-28-2024 Influenza vaccination Influenza Vacc ine (#1) [facility] Comment on above: Postponed from 10/30 (Declined at this time) Start: 07-31-2024 End: 07-31-2024 Nursing evaluation of patient and report 07/31/2024 8:15 AM EDT Nurse Visit Colorectal Surgery [address] [id number] Therapy, [address] [id number] stoma nurse, has an ulcer next to stoma Colorectal Surgery Comment on above: stoma nurse, has an ulcer next to stoma Start: 07-17-2024 End: 07-17-2024 Nursing evaluation of patient and report 07/17/2024 8:15 AM EDT Nurse Visit Colorectal Surgery [address] [id number] Therapy, Stoma [address] [place] [address] stoma nurse, has an ulcer next to stoma Colorectal Surgery Comment on above: stoma nurse, has an ulcer next to stoma Start: 07-14-2024 DIABETES SCREEN DIABETES SCREEN [facility] Start: 07-07-2024 DIABETES SCREEN DIABETES SCREEN [facility] Start: 07-06-2024 Patient referral [facility] Work Phone: Start: 07-05-2024 End: 07-05-2024 Patient encounter procedure 07/05/2024 8:00 AM EDT Office Visit [facility] [address] [place], [place] [phone] Norm Parker APRN.SECURITY SYSTEM INSTALLER [address] [place] [address] ulcer near stoma [facility] Comment on above: ulcer near stoma Start: 06-30-2024 DIABETES SCREEN DI[facility]CREEN [facility] Start: 06-23-2024 DIABETES SCREEN [facility]CRE[facility] Start: 06-16-2024 [facility] Start: 06-09-2024 DIABET[facility]CRE[facility] Start: 05-31-2024 End: 05-31-2024 Patient encounter procedure 05/31/2024 3:40 PM EDT Office Visit [facility] [address] [place], [place] [phone] Katy Faust MD [address] [place] [address] Hospital follow up with patient update [facility] Comment on above: Hospital follow up w ith patient update Start: 04-30-2024 DIABET[facility] SCREEN [facility] Start: 04-25-2024 [facility] Start: 04-21-2024 Patient referral [facility] Work Phone: Start: 04-12-2024 End: 04-12-2024 Clinical Support [facility] Start: 03-01-2024 Advance Directive Discussion Advance Directive Discussion [facility] Start: 01-04-2024 End: 01-04-2024 Patient encounter procedure 01/04/2024 2:40 PM EST Office Visit [facility] [address] [place], [place] [address] Norm Parker APRN.SECURITY SYSTEM INSTALLER [address] [place], [place] [phone] Pre op clearance [facility] Comment on above: Pre op clearance Start: 11-30-2023 End: 11-30-2023 Patient encounter procedure 11/30/2023 10:00 AM EDT Office Visit [facility] [address] [place] [address] Norm Parker APRN.SECURITY SYSTEM INSTALLER [address] [place] [address] left shoulder pain [facility] Comment on above: left shoulder pain Start: 10-31-2023 Covid-19 Vaccine ( season) Covid-19 Vaccine ( season) [facility] Start: 10-31-2023 Covid-19 Vaccine () Covid-19 Vaccine () [facility] Start: 10-31-2023 Influenza vaccination C [facility] Start: 09-30-2023 End: 09-30-2023 Admission to same day surgery center Admitting Comment on above: EXAM UNDER ANESTHESI A RECTAL Start: 09-30-2023 End: 09-30-2023 Anrct xm surg req anes general spi/edrl dx [facility] Start: 09-30-2023 End: 09-30-2023 Sigmoidoscopy flx w/biopsy single/multiple [facility] Start: 09-30-2023 Subsequent hospital visit by physician Admitting Comment on above: History of rectal ca ncer [Z85.048] Start: 09-22-2023 End: 09-22-2023 Patient encounter procedure 09/22/2023 5:50 PM EDT Appointment MRI Q [address] [address] History of rectal cancer [Z85.048] MRI Q Comment on above: History of rectal ca ncer [Z85.048] Start: 09-22-2023 Subsequent hospital visit by physician 09/22/2023 5:19 PM EDT Hospital Encounter MRI Q [address] [address] History of rectal cancer [Z85.048] MRI Q Comment on above: History of rectal ca ncer [Z85.048] Start: 09-22-2023 End: 09-22-2023 Anesthesia consultation 09/22/2023 2:50 PM EDT PAT Pre Anesthesia [address] [place] [phone] [address], [address] [place] [phone] pre op Pre Anesthesia Comment on above: pre op Start: 08-03-2023 End: 11-02-2023 CBC panel - Blood by Automated count COMPLETE BLOOD COUNT Lab Routine History of rectal cancer Expected: 08/03/2023 (Approximate), Expires: 11/02/[address] [facility] Work Phone: Comment on above: Expected: 08/03/2023 (Approximate), Expires: 11/02/2023 Start: 08-03-2023 End: 11-02-2023 Comprehensive metabolic 2000 panel - Serum or Plasma COMPREHENSIVE METABOLIC PANEL Lab Routine History of rectal cancer Expected: 08/03/2023 (Approximate), Expires: 11/02/2023 [facility] Comment on above: Expected: 08/03/2023 (Approximate), Expires: 11/02/2023 Start: 08-03-2023 End: 11-02-2023 CONFIRM BLOOD TYPE CONFIRM BLOOD TYPE Blood Bank Routine History of rectal cancer Expected: 08/03/2023 (Approximate), Expires: 11/02/2023 [facility] Comment on above: Expected: 08/03/2023 (Approximate), Expires: 11/02/2023 Start: 08-03-2023 End: 11-02-2023 TYPE AND SCREEN,30 DAY TYPE AND SCREEN,30 DAY Blood Bank Routine History of rectal cancer Expected: 08/03/2023 (Approximate), Expires: 11/02/2023 [facility] Comment on above: Expected: 08/03/2023 (Approximate), Expires: 11/02/2023 Start: 07-28-2023 End: 07-28-2023 Follow-up encounter 07/28/2023 4:45 PM EDT [facility] Colorectal Surgery [address] [address] Ramiro Cheung MD [address] [place] [address] FOLLOW UP Colorectal Surgery Comment on above: FOLLOW UP Start: 07-22-2023 End: 07-22-2023 Patient encounter procedure 07/22/2023 3:00 PM EDT Office Visit Podiatry [address] [place], [place] [id number] Jerodmartha Kee [address] [place], [place] [id number] Ingrown nail of great toe [L60.0] Podiatry Comment on above: Ingrown nail of grea t toe [L60.0] Start: 07-18-2023 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 ISIDRA DISEASE VISIT ANNUAL PCP TEAM CHRONIC DISEASE VISIT [facility] Start: 07-08-2023 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 ISIDRA DISEASE VISIT ANNUAL PCP TEAM CHRONIC DISEASE VISIT [facility] Start: 07-08-2023 [facility] Start: 06-11-2023 [facility] Start: 06-11-2023 CT of head without contrast Brain/Head without Contrast [facility] Start: 06-11-2023 CT Unspecified body region WO contrast [facility] Start: 05-05-2023 Patient referral [facility] Work Phone: Start: 04-22-2023 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 ISIDRA DISEASE VISIT ANNUAL PCP TEAM CHRONIC DISEASE VISIT [facility] Start: 04-22-2023 COVID-19 VACCINE (#1) COVID-19 VACCI NE (#1) [facility] Comment on above: Postponed from 08/10 (Declined at this time) Start: 04-22-2023 Pneumococcal Vaccine : 65+ (1 - PCV) Pneumococcal Vaccine: 65+ (1 - PCV) [facility] Comment on above: Postponed from 02/09 (Declined at this time) Start: 04-22-2023 Pneumococcal Vaccine : 65+ (1 of 1 - PCV) Pneumococcal Vaccine: 65+ (1 of 1 - PCV) [facility] Comment on above: Postponed from 02/09 (Declined at this time) Start: 04-22-2023 PNEUMOCOCCAL: 65+ (1 - PCV) PNEUMOCOCCAL: 65+ (1 - PCV) [facility] Comment on above: Postponed from 02/09 (Declined at this time) Postponed from 02/09 (Declined at this time) Start: 04-22-2023 SHINGRIX VACCINE (1 of 2) OLIVA GRIX VACCINE (1 of 2) [facility] Comment on above: Postponed from 02/09 (Declined at this time) Postponed from 02/09 (Declined at this time) Start: 04-07-2023 Influenza vaccination [facility] Comment on above: Postponed from 10/30 (Declined at this time) Start: 04-06-2023 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 ISIDRA DISEASE VISIT ANNUAL PCP TEAM CHRONIC DISEASE VISIT [facility] Start: 04-06-2023 Hepatitis B surface antibody level LDL CHOLESTEROL [facility] Start: 04-03-2023 BP CONTROLLED (<130/80) BP CONTROLLE D (<130/80) [facility] Start: 04-02-2023 BP CONTROLLED (<130/80) BP CONTROLLE D (<130/80) [facility] Start: 03-31-2023 BP CONTROLLED (<130/80) BP CONTROLLE D (<130/80) [facility] Start: 03-31-2023 End: 03-31-2023 Clinical Support [facility] Start: 03-27-2023 BP CONTROLLED (<130/80) BP CONTROLLE D (<130/80) [facility] Start: 03-25-2023 BP CONTROLLED (<130/80) BP CONTROLLE D (<130/80) [facility] Start: 03-23-2023 BP CONTROLLED (<130/80) BP CONTROLLE D (<130/80) [facility] Start: 03-19-2023 BP CONTROLLED (<130/80) BP CONTROLLE D (<130/80) [facility] Start: 03-18-2023 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 ISIDRA DISEASE VISIT ANNUAL PCP TEAM CHRONIC DISEASE VISIT [facility] Start: 03-18-2023 BP CONTROLLED (<130/80) BP CONTROLLE D (<130/80) [facility] Start: 03-12-2023 BP CONTROLLED (<130/80) BP CONTROLLE D (<130/80) [facility] Start: 03-01-2023 Advance Directive Discussion Advance Directive Discussion [facility] Start: 03-01-2023 Behavioral Health Screening Behavioral Health Screening [facility] Start: 03-01-2023 Depression Assessment Depression Ass essment [facility] Start: 01-30-2023 BP CONTROLLED (<130/80) BP CONTROLLE D (<130/80) [facility] Start: 10-30-2022 Covid-19 Vaccine () Covid-19 Vaccine () [facility] Start: 10-30-2022 Influenza vaccination C [facility] Start: 10-15-2022 End: 10-02-2023 US LEG VEIN DVT [facility] US LEG VEIN DVT [facility] Vascular Lab Routine Deep vein thrombosis (DVT) of both lower extremities, unspecified chronicity, unspecified vein (HCC) Localized edema Expected: 10/15/2022 (Approximate), Expires: 10/02/[address] 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 Work Phone: Comment on above: Expected: 10/14/2022 (Approximate), Expires: 10/30/2023 Start: 08-28-2022 Influenza vaccination INFLUENZA (#1) [facility] Comment on above: Postponed from 10/30 (Declined at this time) Start: 07-04-2022 BP CONTROLLED (<130/80) BP CONTROLLE D (<130/80) [facility] Start: 06-16-2022 Adult depression screening assessment DEPRESSION SCREENING [facility] Start: 05-18-2022 End: 07-18-2022 CONFIRM BLOOD TYPE CONFIRM BLOOD TYPE Blood Bank Routine Pre-op evaluation Expected: 05/18/2022, Expires: 07/18/[address] [facility] Work Phone: Comment on above: Expected: 05/18/2022 , Expires: 07/18/2022 Start: 05-18-2022 End: 07-18-2022 TYPE AND SCREEN,30 DAY TYPE AND SCREEN,30 DAY Blood Bank Routine Pre-op evaluation Expected: 05/18/2022, Expires: 07/18/[address] [facility] Work Phone: Comment on above: Expected: 05/18/2022 , Expires: 07/18/2022 Start: 04-22-2022 End: 06-22-2022 Basic metabolic 2000 panel - Serum or Plasma BASIC METABOLIC PNL Lab Routine Encounter for therapeutic drug monitoring Expected: 04/22/2022, Expires: 06/22/[address] [facility] Work Phone: Comment on above: Expected: 04/22/2022 , Expires: 06/22/2022 Start: 04-06-2022 End: 06-06-2022 Comprehensive metabolic 2000 panel - Serum or Plasma [facility] Work Phone: Comment on above: Expected: 04/06/2022 , Expires: 06/06/2022 Start: 04-06-2022 End: 06-06-2022 Hepatitis C virus Ab [Presence] in Serum [facility] Work Phone: Comment on above: Expected: 04/06/2022 , Expires: 06/06/2022 Start: 04-06-2022 End: 06-06-2022 Iron and Iron binding capacity panel - Serum or Plasma [facility] Work Phone: Comment on above: Expected: 04/06/2022 , Expires: 06/06/2022 Start: 04-06-2022 End: 06-06-2022 Lipid 1996 panel - Serum or Plasma [facility] Work Phone: Comment on above: Expected: 04/06/2022 , Expires: 06/06/2022 Start: 03-01-2022 [facility] Start: 03-01-2022 ADVANCE DIRECTIVE DISCUSSION ADVANCE DIRECTIVE DISCUSSION [facility] Start: 03-01-2022 DEPRESSION ASSESSMENT DEPRESSION ASS ESSMENT [facility] Start: 2022 FUV, Provider: Gisela Genao, Status: Pen, Time: 9:45 AM FUV, Provider: Gisela Genao, Status: Pen, Time: 9:45 AM [facility] [address] Work Phone: Start: 2022 DUALRISSA, Provider: Thais Arroyo, Status: Pen, Time: 9:00 AM DUALRISSA, Provider: Thais Arroyo, Status: Pen, Time: 9:00 AM [facility] Work Phone: Start: 02-01-2022 Leukocyte reduced re d blood cells [facility] Work Phone: Start: 02-01-2022 [facility] Work Phone: Start: 02-01-2022 Administration of bl ood product [facility] Start: 02-01-2022 Transfusion of red b lood cells [facility] Start: 02-01-2022 Blood culture [facility] Work Phone: Start: 02-01-2022 Blood culture [facility] Work Phone: Start: 10-30-2021 Influenza vaccination [facility] Start: 07-09-2021 End: 09-08-2021 Urinalysis complete panel - Urine [facility] Work Phone: Comment on above: Expected: 07/09/2021 , Expires: 09/08/2021 Start: 06-17-2021 End: 08-17-2021 Bacteria identified in Urine by Culture URINE CULTURE Microbiology Routine Rectal malignant neoplasm (HCC) Dysuria Expected: 06/17/2021, Expires: 08/17/[address] [facility] Work Phone: Comment on above: Expected: 06/17/2021 , Expires: 08/17/2021 Start: 06-17-2021 End: 08-17-2021 Urinalysis complete panel - Urine URINALYSIS, WITH MICROSCOPIC Lab Routine Rectal malignant neoplasm (HCC) Dysuria Expected: 06/17/2021, Expires: 08/17/[address] [facility] Work Phone: Comment on above: Expected: 06/17/2021 , Expires: 08/17/2021 Start: 06-06-2021 End: 08-06-2021 Carcinoembryonic Ag [Mass/volume] in Serum or Plasma CEA BLD Lab Routine Rectal malignant neoplasm (HCC) Expected: 06/06/2021, Expires: 08/06/[address] [facility] Work Phone: Comment on above: Expected: 06/06/2021 , Expires: 08/06/2021 Start: 06-06-2021 End: 08-06-2021 CBC W Auto Differential panel - Blood CBC + DIFF Lab Routine Rectal malignant neoplasm (HCC) Expected: 06/06/2021, Expires: 08/06/[address] [facility] Work Phone: Comment on above: Expected: 06/06/2021 , Expires: 08/06/2021 Start: 06-06-2021 End: 08-06-2021 Comprehensive metabolic 2000 panel - Serum or Plasma COMP METABOLIC PANEL Lab Routine Rectal malignant neoplasm (HCC) Expected: 06/06/2021, Expires: 08/06/[address] [facility] Work Phone: Comment on above: Expected: 06/06/2021 , Expires: 08/06/2021 Start: 06-04-2021 End: 08-04-2021 Prostate specific Ag [Mass/volume] in Serum or Plasma [facility] Work Phone: Comment on above: Expected: 06/04/2021 , Expires: 08/04/2021 Start: 05-29-2021 End: 07-29-2021 DPYD GENOTYPING [facility] Work Phone: Comment on above: Expected: 05/29/2021 , Expires: 07/29/2021 Start: 03-01-2021 ADVANCE DIRECTIVE DISCUSSION ADVANCE DIRECTIVE DISCUSSION [facility] Start: 01-01-2022 DEPRESSION ASSESSMENT DEPRESSION ASS ESSMENT [facility] Start: 02-10-2021 FUV, Provider: Gisela Genao, Status: Pen, Time: 2:30 PM FUV, Provider: Gisela Genao, Status: Pen, Time: 2:30 PM [id number] Work Phone: Start: 02-10-2021 DUALAUDIO, Provider: Ace Mason, Status: Pen, Time: 2:00 PM DUALAUDIO, Provider: Ace Mason, Status: Pen, Time: 2:00 PM [facility] Work Phone: Start: 10-30-2020 Influenza vaccination INFLUENZA (#1) [facility] Start: 05-05-2017 Adult depression screening assessment DEPRESSION SCREENING [facility] Start: 2015 Pneumococcal Vaccine : 65+ (1 of 1 - PCV) Pneumococcal Vaccine: 65+ (1 of 1 - PCV) [facility] Start: 2015 Pneumococcal Vaccine : 65+ Years (1 - PCV) Pneumococcal Vaccine: 65+ Years (1 - PCV) [facility] Start: 2015 Pneumococcal Vaccine : 65+ Years (1 of 1 - PCV) Pneumococcal Vaccine: 65+ Years (1 of 1 - PCV) [facility] Start: 2015 PNEUMOVAX AGE 65 AND OVER WITH 5YR LOOKBACK (#1) PNEUMOVAX AGE 65 AND OVER WITH 5YR LOOKBACK (#1) [facility] Start: 01-29-2015 Medicare Annual Well ness Visit Medicare Annual Wellness Visit [facility] Start: 2010 Hepatitis B Vaccines (1 of 3 - Risk 3-dose series) Hepatitis B Vaccines (1 of 3 - Risk 3-dose series) [facility] Start: 2010 RSV High Risk: (Elde rly (60+) or Population) (1 - Risk 60-74 years 1-dose series) RSV High Risk: (Elderly (60+) or Population) (1 - Risk 60-74 years 1-dose series) [facility] Start: 2010 RSV Immunization age d 60 or older (1 - 1-dose 60+ series) RSV Immunization aged 60 or older (1 - 1-dose 60+ series) [facility] Start: 2010 RSV Vaccine (1 - 1-d ose 60+ series) RSV Vaccine (1 - 1-dose 60+ series) [facility] Start: 2010 RSV Vaccine (1 - Ris k 60-74 years 1-dose series) RSV Vaccine (1 - Risk 60-74 years 1-dose series) [facility] Start: 02-10-2000 Pneumococcal vaccination Pneum ococcal Vaccine (1 of 1 - PCV) [facility] Start: 02-10-2000 Pneumococcal Vaccine : 50+ (1 of 1 - PCV) Pneumococcal Vaccine: 50+ (1 of 1 - PCV) [facility] Start: 02-10-2000 SHINGRIX VACCINE (1 of 2) OLIVA GRIX VACCINE (1 of 2) [facility] Start: 02-10-2000 Zoster Vaccines (1 of 2) Zoster Vacc gary (1 of 2) [facility] Start: 1995 COLOGUARD (FIT-DNA) COLOGUARD (FIT-D NA) [facility] Start: [address] COLONOGRAPHY [facility] Start: 1995 FECAL OCCULT BLOOD FECAL OCCULT BLOO D [facility] Start: 1995 Screening for malign ant neoplasm of colon [facility] Start: 1995 SIGMOIDOSCOPY SIGMOIDOSCOPY [facility] Start: 1985 LIPID SCREEN LIPID SCREEN [facility] Start: 1969 Hepatitis A Vaccines (1 of 2 - Risk 2-dose series) Hepatitis A Vaccines (1 of 2 - Risk 2-dose series) [facility] Start: 1969 SHINGRIX VACCINE (1 of 2) OLIVA GRIX VACCINE (1 of 2) [facility] Start: 1969 Urine microalbumin profile DTAP,TDAP,TD (1 - Tdap) [facility] Start: 02-10-1968 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 DISEASE VISIT ANNUAL PCP TEAM CHRONIC DISEASE VISIT [facility] Start: 02-10-1968 Anxiety Screening Anxiety Screening [facility] Start: 02-10-1968 BP CONTROLLED (<130/80) BP CONTROLLE D (<130/80) [facility] Start: 02-10-1968 Depression Screening Depression Scre ening [facility] Start: 02-10-1968 Diabetes mellitus screening Diabetes Screening [facility] Start: 02-10-1968 Hepatitis B surface antibody level LDL CHOLESTEROL [facility] Start: 02-10-1968 HEPATITIS C SCREENING HEPATITIS C SC NENA [facility] Start: 1962 COVID-19 VACCINE (1) COVID-19 VACCIN E (1) [facility] Start: 1962 Depression Screening Depression Scre [facility] Start: 02-10-1956 PNEUMOCOCCAL: 65+ (1 - PCV) PNEUMOCOCCAL: 65+ (1 - PCV) [facility] Start: 1955 COVID-19 VACCINE (#1) COVID-19 VACCI NE (#1) [facility] Start: 1950 COVID-19 VACCINE (#1) COVID-19 VACCI NE (#1) [facility] Start: 1950 ABDOMINAL AORTIC ANE URYSM SCREENING ABDOMINAL AORTIC ANEURYSM SCREENING [facility] Start: 1950 Abdominal aortic ane urysm screening Abdominal Aortic Aneurysm Screening [facility] Start: 1950 Lipid panel Lipid Panel [facility] Start: 1950 Medicare Annual Well ness (AWV) Medicare Annual Wellness (AWV) [facility] Start: 1950 Medicare Annual Well ness Visit Medicare Annual Wellness Visit (AWV) [facility] Start: 1950 Screening for malign ant neoplasm of colon [facility] Ankle brachial press ure index [facility] Work Phone: Anrct xm surg req an es general spi/edrl dx EXAM UNDER ANESTHESIA RECTAL History of rectal cancer [facility] Bacteria identified in Blood by Culture Blood Culture [facility] Work Phone: Blood culture [facility] Work Phone: End: 06-12-2022 CBC W Auto Differential panel - Blood CBC + DIFF Lab STAT Rectal malignant neoplasm (HCC) Anal squamous cell carcinoma (HCC) Once per week for 9 Occurrences starting 06/14/2021 until 06/12/[address] [facility] Work Phone: Comment on above: Once per week for 9 Occurrences starting 06/14/2021 until 06/12/2022 End: 06-12-2022 Comprehensive metabolic 2000 panel - Serum or Plasma COMP METABOLIC PANEL Lab STAT Rectal malignant neoplasm (HCC) Anal squamous cell carcinoma (HCC) Once per week for 9 Occurrences starting 06/14/2021 until 06/12/[address] [facility] Work Phone: Comment on above: Once per week for 9 Occurrences starting 06/14/2021 until 06/12/2022 CONFIRM BLOOD TYPE CONFIRM BLOOD TYPE Blood Bank Routine Pre-op evaluation 05/20/2022 11:00 AM EDT [facility] Work Phone: CT SIM PLANNING RADI ATION ONCOLOGY CT SIM PLANNING RADIATION ONCOLOGY Radiology Routine Rectal malignant neoplasm (HCC) Ordered: 06/04/[address] [facility] Work Phone: Comment on above: Ordered: 06/04/2021 End: 01-07-2023 ECG COMPLETE ECG COMPLETE ECG Routine Pre-operative clearance 1 Occurrences starting 01/07/2022 until 01/07/[address] [facility] Work Phone: Comment on above: 1 Occurrences starti ng 01/07/2022 until 01/07/2023 End: 08-02-2024 ECG COMPLETE ECG COMPLETE ECG Routine History of rectal cancer 1 Occurrences starting 08/03/2023 until 08/02/2024 [facility] Comment on above: 1 Occurrences starti ng 08/03/2023 until 08/02/2024 H&P for surgery H&P FOR SURGERY Procedures Routine History of rectal cancer Ordered: 08/03/2023 [facility] Comment on above: Ordered: 08/03/2023 End: 08-04-2023 INR in Platelet poor plasma by Coagulation assay INR (POC) Lab Routine Acute deep vein thrombosis (DVT) of proximal vein of left lower extremity (HCC) Once per month for 99 Occurrences starting 08/04/2022 until 08/04/[address] [facility] Work Phone: Comment on above: Once per month for 9 9 Occurrences starting 08/04/2022 until 08/04/2023 Insertion picc w/rs& i 5 yr/> IR INSERT PICC LINE >/= 5 YR Radiology Routine Rectal malignant neoplasm (HCC) Ordered: 06/06/[address] [facility] Work Phone: Comment on above: Ordered: 06/06/2021 IR IVC FILTER REMOVAL IR IVC TONO TER REMOVAL Radiology Routine S/P IVC filter Ordered: 11/03/[address] [facility] Work Phone: Comment on above: Ordered: 11/03/2022 End: 06-12-2022 Magnesium [Mass/volume] in Serum or Plasma MAGNESIUM BLD Lab STAT Rectal malignant neoplasm (HCC) Anal squamous cell carcinoma (HCC) Once per week for 9 Occurrences starting 06/14/2021 until 06/12/[address] [facility] Work Phone: Comment on above: Once per week for 9 Occurrences starting 06/14/2021 until 06/12/2022 End: 09-01-2024 MR Pelvis WO contrast MRI RECTUM WO/W IVCON Radiology Routine History of rectal cancer 1 Occurrences starting 08/03/2023 until 09/01/2024 [facility] Comment on above: 1 Occurrences starti ng 08/03/2023 until 09/01/2024 MR Pelvis WO contrast MRI RECTUM WO/W IVCON Radiology Routine History of rectal cancer 09/22/2023 7:36 PM EDT [facility] Work Phone: End: 08-17-2022 Mri pelvis w/o & w/contrast material MRI RECTUM WO/W IVCON Radiology Routine Rectal malignant neoplasm (HCC) Anal squamous cell carcinoma (HCC) 1 Occurrences starting 07/18/2021 until 08/17/[address] [facility] Work Phone: Comment on above: 1 Occurrences starti ng 07/18/2021 until 08/17/2022 Mri pelvis w/o & w/contrast material MRI RECTUM WO/W IVCON Radiology Routine Rectal malignant neoplasm (HCC) Anal squamous cell carcinoma (HCC) 09/17/2021 5:15 PM EDT [facility] Work Phone: End: 10-25-2022 Mri pelvis w/o & w/contrast material MRI RECTUM WO/W IVCON Radiology Routine Malignant neoplasm of rectum (HCC) 1 Occurrences starting 09/25/2021 until 10/25/[address] [facility] Work Phone: Comment on above: 1 Occurrences starti ng 09/25/2021 until 10/25/2022 Patient Education [facility] Work Phone: Patient referral [facility] Work Phone: End: 08-03-2023 PT panel - Platelet poor plasma by Coagulation assay PROTHROMBIN TIME/PT Lab STAT Acute deep vein thrombosis (DVT) of proximal vein of left lower extremity (HCC) Once per month for 99 Occurrences starting 08/04/2022 until 08/03/[address] [facility] Work Phone: Comment on above: Once per month for 9 9 Occurrences starting 08/04/2022 until 08/03/2023 REFER FOR ADMIT INTERVIEW REFER FOR ADMIT INTERVIEW Procedures Routine History of rectal cancer Ordered: 08/03/2023 [facility] Comment on above: Ordered: 08/03/2023 Sigmoidoscopy flx w/biopsy single/multiple SIGMOIDOSCOPY FLEXIBLE WITH BIOPSY History of rectal cancer [facility] SURGICAL PATHOLOGY SURGICAL PATH OLOGY Lab Routine Rectal cancer (HCC) Ordered: 12/10/[address] [facility] Work Phone: Comment on above: Ordered: 12/10/2021 TYPE AND SCREEN,30 DAY TYPE AND SCREEN,30 DAY Blood Bank Routine Pre-op evaluation 05/20/2022 10:51 AM EDT [facility] Work Phone: US Carotid arteries [facility] Work Phone: End: 11-04-2023 US CAROTID ARTERIES [facility] US CAROTID ARTERIES [facility] Vascular Lab Routine Bruit of right carotid artery 1 Occurrences starting 11/03/2022 until 11/04/[address] [facility] Work Phone: Comment on above: 1 Occurrences starti ng 11/03/2022 until 11/04/2023 End: 05-21-2023 US LEG VEIN DVT [facility] US LEG VEIN DVT [facility] Vascular Lab Routine Personal history of DVT (deep vein thrombosis) Anticoagulation management encounter History of pulmonary embolism 1 Occurrences starting 05/20/2022 until 05/21/[address] [facility] Work Phone: Comment on above: 1 Occurrences starti ng 05/20/2022 until 05/21/2023 End: 11-04-2023 US LEG VEIN DVT [facility] US LEG VEIN DVT [facility] Vascular Lab Routine 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) 1 Occurrences starting 11/03/2022 until 11/04/[address] [facility] Work Phone: Comment on above: 1 Occurrences starti ng 11/03/2022 until 11/04/2023 End: 07-10-2024 XR Shoulder - left 3 Views XR SHOULDER GENERAL 3V OR MORE AP/TRUE AP/OTHER LEFT Radiology Routine Pain in left arm 1 Occurrences starting 06/11/2023 until 07/10/[address] [facility] Work Phone: Comment on above: 1 Occurrences starti ng 06/11/2023 until 07/10/2024 XR Shoulder - left 3 Views XR SHOULDER GENERAL 3V OR MORE AP/TRUE AP/OTHER LEFT Radiology Routine Pain in left arm 06/14/2023 8:53 AM EDT [facility] Work Phone: [facility] Immun[facility] Immunization Date Immunization Notes Care Provider Sudhakar melton 12-17-2016 tetanus toxoid, redu rocky diphtheria toxoid, and acellular pertussis vaccine, adsorbed No PCP None [facility] Payers Date Payer Category Payer Self-pay [id number] 2015 Medicare MEDICARE MEDICAR E A AND B [id number] 2015-Present [phone] [address] [address] [place] [address] Medicare [id number] Medicare [id number]. 1.13.159. 2.7.3.959794.315 2015 Medicare [id number] 2012 Private Health Insurance BRYAN JORDAN PPO [id number] 2012-Present [phone] [address] [place] [address] [facility] [id number]. 2.7.3.579702.315 2005 Managed Care (Private) BRYAN SANTOS [facility] PLAN [id number]. [id number] 2005 Private Health Insurance 1.2 .840.500895.1.13.159. 2.7.3.802187.315 2005 Private Health Insurance [id number] 1950 Unknown [id number] 2.0.1.831059.3.579. 2.1245 1950 Unknown [id number] 2.840.1.632428.3.579. 2.1243 Unknown Unknown VA AUTH REQUIR ED SEE NOTE [id number] Unknown [id number] 2.16840.1.337537.3.579. 2.462 Unknown [id number] 2.840.1.342875.3.579. 2.462 Unknown [id number] 2.16840.1.061844.3.579. 2.462 Unknown [id number] 2.16840.1.388771.3.579. 2.462 Unknown [id number] 2.16840.1.256745.3.579. 2.462 Unknown [id number] 2.16840.1.347288.3.579. 2.462 Unknown [id number] 2.16840.1.912384.3.579. 2.462 Unknown [id number] 2.16840.1.828810.3.579. 2.462 Unknown [id number] 2.16840.1.966586.3.579. 2.462 Unknown [id number] 2.16.840.1.711935.3.579. 2.462 Unknown [id number] 2.16.840.1.368664.3.579. 2.462 Unknown [id number] 2.16.840.1.066984.3.579. 2.462 Unknown [id number] 2.16.840.1.063967.3.579. 2.462 Unknown [id number] 2.16.840.1.579668.3.579. 2.462 Unknown [id number] 2.16.840.1.041168.3.579. 2.462 Unknown [id number] 2.840.1.598607.3.579. 2.462 Unknown [id number] 2.16840.1.976563.3.579. 2.462 Unknown [id number] 2.840.1.470662.3.579. 2.462 Unknown [id number] 2.840.1.904933.3.579. 2.462 Unknown [id number] 2.840.1.042223.3.579. 2.462 Unknown [id number] 2.840.1.945824.3.579. 2.462 Unknown [id number] 2.840.1.040104.3.579. 2.462 Unknown [id number] 2.840.1.526565.3.579. 2.462 Unknown [id number] 2.16840.1.026049.3.579. 2.462 Unknown [id number] 2.16.840.1.318044.3.579. 2.462 Unknown [id number] 2.16840.1.151061.3.579. 2.462 Unknown [id number] 2.16.840.1.836861.3.579. 2.462 Unknown [id number] 2.16840.1.484535.3.579. 2.462 Unknown [id number] 2.16.840.1.037824.3.579. 2.462 Unknown [id number] 2.16.840.1.837094.3.579. 2.462 Unknown [id number] 2.16.840.1.561796.3.579. 2.462 Unknown [id number] 2.16840.1.388995.3.579. 2.462 Unknown [id number] 2.16840.1.904128.3.579. 2.462 Unknown [id number] 2.16840.1.876035.3.579. 2.462 Social History Date Type Detail Facility Start: 02-11-2021 End: 07-01-2022 Former smoker Former smoker [facility] Start: 02-11-2021 End: 04-25-2024 Tobacco smoking status GAIS Ex-smoker [facility] Start: 01-28-1970 End: 01-29-2000 History of tobacco use Current smoker [facility] Start: 01-28-1970 End: 01-29-2000 History of tobacco use Cigarette Smoker [facility] Start: 05-29-2021 End: 07-14-2023 Alcohol intake Current drinker of alcohol (finding) [facility] Start: 03-20-2021 History SDOH Alcohol Comment rarely [facility] Start: 1950 Sex Assigned At Male C [facility] Start: 05-19-2021 End: 03-27-2024 Exposure to SARS-CoV-2 (event) Not sure [facility] Start: 06-04-2020 End: 07-08-2023 Tobacco smoking status GAIS Unknown if ever smoked [facility] Start: 01-18-2014 Occasional [facility] Start: 01-18-2014 None [facility] Start: 01-18-2014 Spouse/ Signif icant Other [facility] Start: 01-18-2014 Non-smoker [facility] Start: 02-11-2021 End: 11-30-2023 Tobacco use and exposure Smokeless tobacco non-user [facility] Start: 03-15-2022 History SDOH Housing Unable to Pay 3 [facility] Start: 05-20-2022 End: 07-05-2024 Alcohol intake Ex-drinker (finding) [facility] Start: 03-14-2022 End: 07-01-2022 Social connection and isolation panel [facility] Start: 07-15-2023 In a typical week, h ow many times do you talk on the telephone with family, friends, or neighbors? Patient refused [facility] Are you now , , , , never or living with a partner? Refused [facility] (I/We) worried wheth er (my/our) food would run out before (I/we) got money to buy more. DK or Refused [facility] Start: 03-14-2021 Gender identity Identifies as male gender (finding) [facility] Start: 03-14-2021 Sexual orientation Heterosexual (re[place]) [facility] Has the [employer], or [address] threatened to shut off services in your home in past 12Mo No [facility] Medical Equipment Procedure Code Equipment Code Equipment Origin al Text Equipment Identifier Dates Discectomy, spine, cervical, anterior approach, with fusion 2 level plate FDA Start: 01-18-2024 Discectomy, spine, cervical, anterior approach, with fusion PUTTY,BONE .5CC DBX FDA Start: 01-18-2024 Discectomy, spine, cervical, anterior approach, with fusion anatomic cervical allograft spacer (1762) FDA Start: 01-18-2024 Discectomy, spine, cervical, anterior approach, with fusion anatomic cervical allograft spacer (C1762) FDA Start: 01-18-2024 Discectomy, spine, cervical, anterior approach, with fusion screw 4.0 fixed angle (doss) FDA Start: 01-18-2024 Discectomy, spine, cervical, anterior approach, with fusion Collagen haemostatic agent, non-antimicrobial [id number] FDA Start: 01-18-2024 Discectomy, spine, cervical, anterior approach, with fusion Ligation clip, metallic ()[id number] FDA Start: 01-18-2024 Discectomy, spine, cervical, anterior approach, with fusion 2 level plate FDA Start: 01-18-2024 Discectomy, spine, cervical, anterior approach, with fusion PUTTY,BONE .5CC DBX FDA Start: 01-18-2024 Discectomy, spine, cervical, anterior approach, with fusion anatomic cervical allograft spacer (1762) FDA Start: 01-18-2024 Discectomy, spine, cervical, anterior approach, with fusion anatomic cervical allograft spacer (C1762) FDA Start: 01-18-2024 Discectomy, spine, cervical, anterior approach, with fusion screw 4.0 fixed angle (doss) FDA Start: 01-18-2024 Discectomy, spine, cervical, anterior approach, with fusion 2 level plate FDA Start: 01-18-2024 Discectomy, spine, cervical, anterior approach, with fusion PUTTY,BONE .5CC DBX FDA Start: 01-18-2024 Discectomy, spine, cervical, anterior approach, with fusion anatomic cervical allograft spacer (1762) FDA Start: 01-18-2024 Discectomy, spine, cervical, anterior approach, with fusion anatomic cervical allograft spacer (C1762) FDA Start: 01-18-2024 Discectomy, spine, cervical, anterior approach, with fusion screw 4.0 fixed angle (doss) FDA Start: 01-18-2024 Discectomy, spine, cervical, anterior approach, with fusion 2 level plate FDA Start: 01-18-2024 Discectomy, spine, cervical, anterior approach, with fusion PUTTY,BONE .5CC DBX FDA Start: 01-18-2024 Discectomy, spine, cervical, anterior approach, with fusion anatomic cervical allograft spacer (1762) FDA Start: 01-18-2024 Discectomy, spine, cervical, anterior approach, with fusion anatomic cervical allograft spacer (C1762) FDA Start: 01-18-2024 Discectomy, spine, cervical, anterior approach, with fusion screw 4.0 fixed angle (doss) FDA Start: 01-18-2024 Discectomy, spine, cervical, anterior approach, with fusion 2 level plate FDA Start: 01-18-2024 Discectomy, spine, cervical, anterior approach, with fusion PUTTY,BONE .5CC DBX FDA Start: 01-18-2024 Discectomy, spine, cervical, anterior approach, with fusion anatomic cervical allograft spacer (1762) FDA Start: 01-18-2024 Discectomy, spine, cervical, anterior approach, with fusion anatomic cervical allograft spacer (C1762) FDA Start: 01-18-2024 Discectomy, spine, cervical, anterior approach, with fusion screw 4.0 fixed angle (doss) FDA Start: 01-18-2024 Coil Concerto 5m m [place] Nylon 20cm Embolization Detachable Accepts .021in - [id number] Start: 02-01-2022 Device Angio-Sea l Vip 6fr .035in Collagen 70cm Closure Valuelink Guidewire - [id number] Start: 02-01-2022 System Option 6. 5fr 0-32mm 5fr 70cm Embolic Protection Filter Kit - [id number] Start: 02-16-2022 System Option 6. 5fr 0-32mm 5fr 70cm Embolic Protection Filter Kit - [id number] Start: 03-02-2022 Catheter Triever 24 24fr Thrombectomy 22-101 [id number] Start: 03-02-2022 Coil Concerto Latticefx 4mm [place] Nylon Fiber Polypropylene 10cm - [id number] Start: 02-01-2022 Coil Azur Cx Hydrocoil 2mm .018in Hydrogel 4cm Embolization Detachable Loop - [id number] Start: 02-01-2022 Coil Azur Cx Hydrocoil 3mm .018in Hydrogel 8cm Embolization Detachable Loop - [id number] Start: 02-01-2022 Coil Azur Cx Hydrocoil 2mm .018in Hydrogel 4cm Embolization Detachable Loop - [id number] Start: 02-01-2022 Coil Azur Cx Hydrocoil 2mm .018in Hydrogel 4cm Embolization Detachable Loop - [id number] Start: 02-01-2022 Coil Azur Cx Hydrocoil 2mm .018in Hydrogel 4cm Embolization Detachable Loop - [id number] Start: 02-01-2022 Coil Azur Cx Hydrocoil 2mm .018in Hydrogel 4cm Embolization Detachable Loop - [id number] Start: 02-01-2022 Coil Azur Cx Hydrocoil 3mm .018in Hydrogel 8cm Embolization Detachable Loop - [id number] Start: 02-01-2022 Coil Azur Cx Hydrocoil 3mm .018in Hydrogel 8cm Embolization Detachable Loop - [id number] Start: 02-01-2022 Coil Azur Cx Hydrocoil 3mm .018in Hydrogel 8cm Embolization Detachable Loop - [id number] Start: 02-01-2022 Coil Azur Cx Hydrocoil 3mm .018in Hydrogel 8cm Embolization Detachable Loop - [id number] Start: 02-01-2022 Peripheral arter y stent, bare-metal ()[id number] FDA Start: 07-08-2023 Functional Status Date Assessment Result Facility 03-10-2022 Are you deaf, or do you have serious difficulty hearing No 03/10/2022 9:19 AM Isaura Lakhani RN No [facility] 03-10-2022 Are you blind, or do you have serious difficulty seeing, even when wearing glasses No 03/10/2022 9:19 AM Isaura Lakhani RN No [facility] 03-10-2022 Do you have serious difficulty walking or climbing stairs No 03/10/2022 9:19 AM Isaura Lakhani, DERRICK No [facility] 03-10-2022 Do you have difficul ty dressing or bathing No 03/10/2022 9:19 AM Isaura Lakhani, DERRICK No [facility] 03-10-2022 Because of a physica l, mental, or emotional condition, do you have difficulty doing errands alone such as visiting a physician's office or shopping No 03/10/2022 9:19 AM Isaura Lakhani RN No [facility] Mental Status Date Assessment Result Facility 06-11-2023 Cognitive function Level Of Cons ciousness Awake;Alert;Inappropriate;R estless [facility] Work Phone: 03-10-2022 Because of a physica l, mental, or emotional condition, do you have serious difficulty concentrating, remembering, or making decisions No 03/10/2022 9:19 AM Isaura Lakhani, DERRICK No [facility] 03-01-2022 Cognitive function Level Of Cons ciousness Awake;Alert;Appropriate;Fol lows Commands [facility] Work Phone: 06-09-2021 Cognitive function Voice/Name [facility] Work Phone: Clinical Notes 07-16-2020 to 01-02-2025 Note Date & Type Note Facility 01-02-2025 Note [facility] Medical Records Department [address] [place] [address] History Physical Exam 01/02/25 1153 MR#: [id number] Acct: [id number] Name: JAI LUNA Rep #: [id number] : 1950 74 From: Howard Siddiqui MD PCP: Dr. Katy Faust MD Status:[facility] Location: [place] [address] History and Physical Date of Admission: 01/02/25 MR#: [id number] Acct: [id number] Name: JAI LUNA Rep #: [id number] : 1950 Provider: Dr. Howard Siddiqui MD Age/Sex: 74/M Location: [facility] Status: Signed Intake Vital Signs 10/14/2507:58 11/29/2506:49 12/22/2508:26 Height 5 ft 6 in 5 ft 6 in 5 ft 6 in Weight: 194 lb 190 lb BMI 31.3 30.7 Intake Visit Reasons: lumbar spine Chief Complaint: Lumbre spine pre op Accompanied by: Self Is patient in pain?: Yes Pain scale (1-10): 1 Allergies clindamycin Allergy (Intermediate, Verified 12/22/24 09:31) Abd cramps/diarrhea cat dander (cats) Adverse Reaction (Verified 12/22/24 09:31) PT UNSURE OF REACTION codeine Adverse Reaction (Verified 12/22/24 09:31) Upset Stomach Medications ???Medication ???Instructions ???Recorded ???Confirmed ???Type coenzyme Q10 50 mg capsule (Co 100 mg PO DAILY vitamin 03/04/18 12/22/24 History Q-10) cholecalciferol (vitamin D3) 50 4,000 unit PO DAILY vitamin 07/21/19 12/22/24 Hist ory mcg (2,000 unit) capsule aspirin 81 mg tablet,delayed 81 mg PO DAILY 05/05/23 12/22/24 History release (Adult Low Dose Aspirin) magnesium 250 mg tablet 500 mg PO DAILY 05/05/23 12/22/24 History rosuvastatin 10 mg tablet 10 mg PO QDAY #90 tabs 11/10/23 12/22/24 Rx multivitamin 1 tab PO DAILY 01/04/24 12/22/24 History calcium 600 mg capsule 1,200 mg PO DAILY 12/19/24 12/22/24 History clopidogrel 75 mg tablet 75 mg PO DAILY 12/19/24 12/22/24 History Have you fallen in the past year?: No PFSH Medical History Leg cramps Obesity (BMI 30.0-34.9) MRSA (methicillin resistant staph aureus) culture positive Deaf Wears hearing aid Wears glasses Cancer High cholesterol DVT (deep venous thrombosis) Injury of head and neck Loss of consciousness Gastric reflux Former smoker History of edema History of echocardiogram History of stress test Cardiology follow-up encounter Pulmonary embolism Gastric artery aneurysm Ileostomy present Rectal cancer Intra abdominal hemorrhage Dilated aortic root 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 Subclavian artery stenosis, left GERD (gastroesophageal reflux disease) Meniere's disease Bilateral carotid artery stenosis Old myocardial infarction Premature ventricular contraction Peripheral vascular disease Presence of stent in coronary artery ( 12/22/16) Essential hypertension 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 Hypoacusis Dyslipidemia HTN (hypertension) CAD (coronary artery disease) Surgical History History of fusion of cervical spine (01/18/24) History of coronary artery stent placement Presence of coronary angioplasty implant and graft ( 12/22/16) History of tonsillectomy History of transurethral resection of prostate ( 09/2016) S/P CABG (coronary artery bypass graft) ( 09/16/98) S/P PTCA (percutaneous transluminal coronary angioplasty) ( 12/22/16) Family History Father CAD (coronary artery disease) Myocardial infarction, Onset Age: 45 Mother Carotid artery stenosis Social History Smoking Status: Former smoker how long ago did patient quit smokin alcohol intake: current details: occasional HPI lumbar spine Details: This documentation accurately reflects the service provided and the decisions made by me, Dr. Howard Siddiqui MD 12/22/24 0926. Part of today???s visit was documented by Teagan Weems MA, acting as scribe. JAI LUNA is a 74 year old M here today for lumbar spine pre op. Patient states that his pain is a 1 today. He has heard that some patient have to get this surgery done a second time. The patient is a 74-year-old male presenting for pre-operative evaluation and discussion regarding upcoming laminectomy surgery. The patient has a history of neck surgery performed earlier this year, which has resolved previous shoulder pain. He reports that his left arm is no longer painful, indicating successful surgical outcomes. The patient also has a history of an ostomy, which led to an u (more content not included)... [facility] 12-26-2024 Note HNO ID: [id number] Author: SRINIVASAN DA SILVA APRN.FUEL AGENT Service: ? Author Type: Nurse Specialist Type: Progress Notes Filed: 12/26/2024 07:44 Note Text: Subjective Patient ID: Chaka is a 74 year old male who presents for Pre-Op Exam. HPI Jai Luna is a 74-year-old male with CAD s/p CABG, coronary stents, hyperlipidemia and lumbar spinal stenosis, presenting for preoperative evaluation prior to lumbar decompression surgery. Preoperative Evaluation: - Scheduled for back surgery on 06/03 at [facility] by Dr. Siddiqui to address spinal stenosis in the lower spine. - Has seen [facility] for pre-surgery evaluation. He has undergone lab work and EKG with cardiology. - Instructed to stop taking baby aspirin 7 days preoperatively and to stop Plavix now 1 year s/p coronary stent. - Denies chest pain, dyspnea, or need for oxygen. - Denies current cancer, diabetes, lung disease, or kidney disease. - Denies steroid use or infections in the last month. - Denies smoking in the last year; quit smoking in 1999. - Independent in daily activities. - No history of heart failure. Plan is for overnight admission to the hospital. Spinal Stenosis: - Diagnosed with lumbar spinal stenosis affecting nerves to the left leg, causing progressive weakness and difficulty walking distances. - Has been worsening over the years despite increased exercise. - Previous MRI and physical therapy conducted before diagnosis. - History of cervical spine surgery with plate insertion by Dr. Siddiqui, which alleviated severe left shoulder pain but left arm remains weak. Rectal Cancer: - In remission. - Underwent ileostomy; resection failed, resulting in permanent ostomy. ACS NSQIP Surgical Risk Calculator Procedure CPT Code: Lumbar laminectomy 1. Age Group: 65 - 74 years 2. Sex: male 3. Functional Status: Independent 4. Emergency Case: No 5. ASA Class: Mild systemic disease 6. Steroid use for chronic condition: No 7. Ascites within 30 days prior to surgery: No 8. Systemic Sepsis within 48 hours prior to surgery: None 9. Ventilator Dependent: No 10. Disseminated Cancer: No 11. Diabetes: None 12. Hypertension requiring medication: No 13. Congestive Heart Failure in 30 days prior to surgery: No 14. Dyspnea: No 15. Current Smoker within 1 Year: No 16. History of COPD: No 17. Dialysis: No 18. Acute Renal Failure: No 19. BMI Class Calculation: Obese 1 Objective BP 139/71 Pulse (!) 58 Temp 36.9 ?C (98.5 ?F) (Oral) Resp 16 Wt 88.4 kg (194 lb 14.2 oz) SpO2 96% BMI 32.68 kg/m? Physical Exam Vitals and nursing note reviewed. Constitutional: Appearance: Normal appearance. HENT: Head: Normocephalic and atraumatic. Eyes: Conjunctiva/sclera: Conjunctivae normal. Neck: Thyroid: No thyroid mass or thyromegaly. Vascular: Normal carotid pulses. No carotid bruit or JVD. Cardiovascular: Rate and Rhythm: Normal rate and regular rhythm. Pulses: Carotid pulses are 2+ on the right side and 2+ on the left side. Radial pulses are 2+ on the right side and 2+ on the left side. Heart sounds: Normal heart sounds. Pulmonary: Effort: Pulmonary effort is normal. Breath sounds: Normal breath sounds. Abdominal: General: Bowel sounds are normal. Palpations: Abdomen is soft. Musculoskeletal: Right lower leg: No edema. Left lower leg: No edema. Skin: General: Skin is warm and dry. Neurological: General: No focal deficit present. Mental Status: He is alert and oriented to person, place, and time. 1. Preop exam for internal medicine (Z01.818) - Preoperative risk assessment completed for lumbar spine surgery scheduled on the at [facility] with Dr. Siddiqui. - No active infection, steroid use, or other acute medical issues identified that would increase surgical risk. - Reviewed preoperative labs; all necessary labs completed. - Reviewed preoperative instructions from cardiology and surgery, including discontinuation of aspirin and Plavix. He is below average risk for serious or any complication. No need for any additional testing from an internal medicine perspective. CBC and CMP was completed at [facility] on December 20. - Advised to call Dr. Siddiqui's office the day before surgery to confirm surgery time if he does not receive a call with his surgery time. 2. Spinal stenosis of lumbar region with neurogenic claudication (M48.062) - Chronic lumbar spinal stenosis with neurogenic claudication affecting left leg; surgery planned to address this. 3. Coronary artery disease involving seneca coronary artery of seneca heart without angina pectoris (I25.10) 4. 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 S/P coronary artery stent placement (Z95.5) 6. History of pulmonary embolism (Z86.711) - Cardiology evaluation completed prior to surgery; instructed to stop aspirin and Plavix as per cardiology recommendations. 7. History of rectal cancer (Z85.048) 8. Presence o (more content not included)... [facility] 11-29-2024 Progress note [facility] 08-23-2024 Evaluation note Diagnosis Onset Date Resolution Subclavian artery stenosis, left acute August 23, 2024 9:49am 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 July 312024 9:49am Spinal stenosis of lumbar region with neurogenic claudication acute September 13, 2024 1:14pm Status post cervical spinal fusion acute September 13, 2024 1:14pm Thoracic radiculopathy acute Ju ly 2024 1:14pm Lumbar stenosis acute October 132024 8:21am Obesity (BMI 30.0-34.9) acute A ugust 2024 8:21am Spinal stenosis of lumbar region with neurogenic claudication acute October 13 8:21am Thoracic radiculopathy acute Au bella 2024 8:21am Preoperative cardiovascular examination acute November 29 10:38am 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 Author Type: Nurse Practitioner Type: Progress Notes Filed: 08/15/2024 16:07 Note Text: SUBJECTIVE Jai Luna is a 74 year old male here today for acute concern. Chief Complaint Patient presents with: Pain: upper left back on going for about 3 week and no change in intensity HPI Chaka Luna is a 74-year-old male with a history of spinal stenosis, presenting with a 3-week history of sharp, aching pain beneath the left scapula. Chaka reports a 3-week history of sharp, aching pain beneath the left scapula, described as a "piercing pain." He initially thought it was a pulled muscle from outdoor activities but notes that the pain has not improved over the 3 weeks. The pain is position-dependent, exacerbated by certain positions in bed and activities like checking the tray under the refrigerator. It is not constant and does not worsen but remains the same. He denies chest pain and has no history of cardiac issues during physical activities like mowing the lawn or carrying heavy objects. He has not tried heat or ice but has applied various salves without relief. He uses a tennis ball in a sock to apply pressure to the area, which provides some relief. Chaka has a history of spinal stenosis in the lower spine, causing significant difficulty with ambulation. He is scheduled for physical therapy but is skeptical about its effectiveness, anticipating potential surgery to alleviate nerve compression. He also has a history of severe left shoulder pain, previously diagnosed as a pinched nerve, which was alleviated following cervical surgery by Dr. Reed. He reports residual weakness in the left arm, with noticeable bicep atrophy prior to the surgery. Additionally, Chaka has a history of rectal cancer, for which he underwent a colostomy. He reports that a stoma ulcer has significantly improved following a change to a 3-piece colostomy bag. He denies current pain associated with the stoma. His medications were reviewed today and his list is now up to date. Medications Current Outpatient Medications Medication Sig calcium carbonate/vitamin D3 (CALCIUM 600 WITH VITAMIN D3 ORAL) Take 1 tablet by mouth once daily. Ascorbic Acid (VITAMIN C) 1,000 mg tablet Take 1,000 mg by mouth once daily. MAGNESIUM CARBONATE ORAL Take 500 mg by mouth once daily. Calcium Lactate 100 mg calcium tab Take 1 tablet by mouth once daily. rosuvastatin (CRESTOR) 10 mg tablet Take 1 tablet by mouth once daily. clopidogrel (PLAVIX) 75 mg tablet Take 75 mg by mouth. multivitamin tablet Take 1 tablet by mouth once daily. aspirin, enteric coated (ADULT LOW DOSE ASPIRIN) 81 mg EC tablet Take 1 tablet by mouth once daily. coenzyme Q10 (COENZYME Q-10) 100 mg cap capsule Take 100 mg by mouth once daily. Cholecalciferol, Vitamin D3, 50 mcg (2,000 unit) cap Take 1 capsule by mouth two times a week. tiZANidine (ZANAFLEX) 4 mg tablet Take 1 tablet by mouth every 8 hours as needed. Miscellaneous Medical Supply Increase monthly supply of ostomy pouches to 12 per month(8 per month not adequate) No current facility-administered medications for this visit. ALLERGIES Allergen Reactions Cat Dander Other: See Comments Clindamycin GI Upset Codeine GI Upset ACTIVE PROBLEM LIST History of Pulmonary Embolism - 09/22/2023 Pvd (Peripheral Vascular Disease) - 09/22/2023 History of Dvt (Deep Vein Thrombosis) - 09/22/2023 Acute Deep Vein Thrombosis (Dvt) of Proximal Vein of Left Lower Extremity ([facility]) - 07/21/2022 Pulmonary Embolism and Infarction ([facility]) - 03/02/2022 Pulmonary Embolism ([facility]) - 02/13/2022 Hypokalemia - 02/10/2022 Urinary Retention - [address] ([facility]) - 01/28/2022 Rectal Cancer ([facility]) - 01/27/2022 Rectal Malignant Neoplasm ([facility]) - 05/29/2021 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 Bilateral Carotid Artery Stenosis - 04/30/2021 Cervical Radiculopathy - 04/30/2021 Hearing Loss - 04/30/2021 History of Cardiac Catheterization - 04/30/2021 Status Post Coronary Artery Bypass Graft - 04/30/2021 Atherosclerosis of Coronary Artery Bypass Graft - 01/18/2013 Dyslipidemia - 01/16/2013 History of Myocardial Infarction - 08/29/1998 Social History Tobacco Use Smoking status: Former Current packs/day: 0.00 Average packs/day: 1 pack/day for 30.0 years (30.0 ttl pk-yrs) Types: Cigarettes Start date: 01/28/1970 Quit date: 01/29/2000 Years since quittin.5 Smokeless tobacco: Never Vaping Use Vaping status: Never Used Substance Use Topics Alcohol use: Not Currently Comment: rarely Drug use: No Review of Systems Respiratory: Negative. Cardiovascular: Negative. Musculoskeletal: Positive for myalgias. OBJECTIVE BP 132/70 Pulse 62 Wt 192 lb 7.4 oz (87.3kg) SpO2 98% Physical Exam Vitals and nursing note reviewed. Constitutional: General: He is awake. He is not in acute distress. Appearanc (more content not included)...[facility]06-17-2025 History of Present illness Narrative* Norm Parker APRN.SECURITY SYSTEM INSTALLER - 08/15/2024 3:27 PM EDT Images from the original note were not included. SUBJECTIVE Jai Luna is a 74 year old male here today for acute concern. Chief Complaint Patient presents with: Pain: upper left back on going for about 3 week and no change in intensity HPI Chaka Luna is a 74-year-old male with a history of spinal stenosis, presenting with a 3-week history of sharp, aching pain beneath the left scapula. Chaka reports a 3-week history of sharp, aching pain beneath the left scapula, described as a "piercing pain." He initially thought it was a pulled muscle from outdoor activities but notes that the pain has not improved over the 3 weeks. The pain is position-dependent, exacerbated by certain positions in bed and activities like checking the tray under the refrigerator. It is not constant and does not worsen but remains the same. He denies chest pain and has no history of cardiac issues during physical activities like mowing the lawn or carrying heavy objects. He has not tried heat or ice but has applied various salves without relief. He uses a tennis ball in a sock to apply pressure to the area, which provides some relief. Chaka has a history of spinal stenosis in the lower spine, causing significant difficulty with ambulation. He is scheduled for physical therapy but is skeptical about its effectiveness, anticipating potential surgery to alleviate nerve compression. He also has a history of severe left shoulder pain,previously diagnosed as a pinched nerve, which was alleviated following cervical surgery by Dr. Reed. He reports residual weakness in the left arm, with noticeable bicep atrophy prior to the surgery. Additionally, Chaka has a history of rectal cancer, for which he underwent a colostomy. He reports that a stoma ulcer has significantly improved following a change to a 3-piece colostomy bag. He denies current pain associated with the stoma. His medications were reviewed today and his list is now up to date. Medications Current Outpatient Medications Medication Sig calcium carbonate/vitamin D3 (CALCIUM 600 WITH VITAMIN D3 ORAL) Take 1 tablet by mouth once daily. Ascorbic Acid (VITAMIN C) 1,000 mg tablet Take 1,000 mg by mouth once daily. MAGNESIUM CARBONATE ORAL Take 500 mg by mouth once daily. Calcium Lactate 100 mg calcium tab Take 1 tablet by mouth once daily. rosuvastatin (CRESTOR) 10 mg tablet Take 1 tablet by mouth once daily. clopidogrel (PLAVIX) 75 mg tablet Take 75 mg by mouth. multivitamin tablet Take 1 tablet by mouth once daily. aspirin, enteric coated (ADULT LOW DOSE ASPIRIN) 81 mg EC tablet Take 1 tablet by mouth once daily. coenzyme Q10 (COENZYME Q-10) 100 mg cap capsule Take 100 mg by mouth once daily. Cholecalciferol, Vitamin D3, 50 mcg (2,000 unit) cap Take 1 capsule by mouth two times a week. tiZANidine (ZANAFLEX) 4 mg tablet Take 1 tablet by mouth every 8 hours as needed. Miscellaneous Medical Supply Increase monthly supply of ostomy pouches to 12 per month(8 per month not adequate) No current facility-administered medications for this visit. ALLERGIES Allergen Reactions Cat Dander Other: See Comments Clindamycin GI Upset Codeine GI Upset ACTIVE PROBLEM LIST History of Pulmonary Embolism - 09/22/2023 Pvd (Peripheral Vascular Disease) - 09/22/2023 History of Dvt (Deep Vein Thrombosis) - 09/22/2023 Acute Deep Vein Thrombosis (Dvt) of Proximal Vein of Left Lower Extremity ([facility]) - 07/21/2022 Pulmonary Embolism and Infarction ([facility]) - 03/02/2022 Pulmonary Embolism ([facility]) - 02/13/2022 Hypokalemia - 02/10/2022 Urinary Retention - [address] ([facility]) - 01/28/2022 Rectal Cancer ([facility]) - 01/27/2022 Rectal Malignant Neoplasm ([facility]) - 05/29/2021 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 Bilateral Carotid Artery Stenosis - 04/30/2021 Cervical Radiculopathy - 04/30/2021 Hearing Loss - 04/30/2021 History of Cardiac Catheterization - 04/30/2021 Status Post Coronary Artery Bypass Graft - 04/30/2021 Atherosclerosis of Coronary Artery Bypass Graft - 01/18/2013 Dyslipidemia - 01/16/2013 History of Myocardial Infarction - 08/29/1998 Social History Tobacco Use Smoking status: Former Current packs/day: 0.00 Average packs/day: 1 pack/day for 30.0 years (30.0 ttl pk-yrs) Types: Cigarettes Start date: 01/28/1970 Quit date: 01/29/2000 Years since quittin.5 Smokeless tobacco: Never Vaping Use Vaping status: Never Used Substance Use Topics Alcohol use: Not Currently Comment: rarely Drug use: No Review of Systems Respiratory: Negative. Cardiovascular: Negative. Musculoskeletal: Positive for myalgias. OBJECTIVE BP 132/70 Pulse 62 Wt 192 lb 7.4 oz (87.3kg) SpO2 98% Physical Exam Vitals and nursing note reviewed. Constitutional: General: He is awake. He is not in acute distress. Appearance: Normal appearance. He is well-developed and well-groomed. He is not ill-appearing, toxic-appearing or diaphoretic. HENT: Head: Normocephalic. Right Ear: External ear normal. Left Ear: External ear normal. Nose: Nose normal. Eyes: General: Vision grossly intact. Conjunctiva/sclera: Conjunctivae normal. Pupils: Pupils are equal, round, and reactive to light. Neck: Vascular: No JVD. Trachea: Trachea normal. Pulmonary: Effort: Pulmonary effort is normal. No accessory muscle usage, prolonged expiration or respiratory distress. Musculoskeletal: Arms: Cervical back: Neck supple. Comments: Tenderness with muscle tightness Skin: General: Skin is warm and dry. Capillary Refill: Capillary refill takes less than 2 seconds. Neurological: General: No focal deficit present. Mental Status: He is alert and oriented to person, place, and time. Mental status is at baseline. Psychiatric: Attention and Perception: Attention and perception normal. Mood and Affect: Mood and affect normal. Speech: Speech normal. Behavior: Behavior normal. Behavior is cooperative. Thought Content: Thought content normal. Cognition and Memory: Cognition and memory normal. Judgment: Judgment normal. ASSESSMENT/PLAN: 1. Tendonitis (M77.9) Muscle tightness (M62.89) Localized tenderness beneath the scapula near a tendon insertion site consistent with tendonitis and associated muscle tightness. No abnormalities or masses palpated on examination. - Prescribed Tizanidine 4 mg, instructed to take 1/2 tablet initially, up to three times daily as needed. - Advised application of warm, moist heat to the affected area. - Recommended use of a tennis ball for targeted pressure relief. - Monitor symptoms and report if no improvement in one week. 2. Spinal stenosis of lumbar region without neurogenic claudication (M48.061) Severe limitation in ambulation due to lumbar spinal stenosis. Undergoing physical therapy as a preliminary step before potential surgical intervention by Dr. Reed. 3. History of malignant neoplasm of rectum (Z85.048) Presence of ileostomy ([facility]CC) (Z93.2) Rectal cancer history with current ileostomy. Recent stoma ulceration significantly improved with achange to a three-piece bag system. - Continue current ileostomy care regimen. - Monitor for any signs of stoma complications. Portions of this note have been entered by ancillary staff. I have reviewed and when necessary edited, so that they are an adequate record of my encounter with this patient Please note that parts of this document were created using voice recognition software and therefore may contain grammatical errors. Patient verbalizes understanding of instructions from today's visit and in agreement with treatmentplan. Questions answered. Agrees to call the office if questions, concerns of issues with acute symptoms not improving or if they worsen. See diagnoses and orders for additional plan(s). Allergies and medications were reviewed, list was updated, and refills given if needed. Past medical, surgical, social, and family history reviewed and updated as appropriate. Encouraged proper diet & exercise as well as compliance with taking medications. Age- appropriate health preventative measures were discussed. Return if symptoms worsen or fail to improve, for Keep next scheduled appointment.. Norm Parker APRN-CHELSIE documented in this encounterSam[facility] Telephone encounter Note * Telephone Encounter - Cony Raygoza RN - 08/08/2024 2:34 PM EDT Patient calls to check on forms being sent to [employer]. Patient reports that he spoke to them today and they have not received the forms for ostomy pouches. Patient reports that he is down to two pouches and will need them very soon. Patient requesting call back at [phone]. Please review and advise, Cony Raygoza RN [facility]06-10[facility] Miscellaneous Notes* Telephone Encounter - Cony Raygoza RN - 08/08/2024 2:34 PM EDT Patient calls to check on forms being sent to [employer]. Patient reports that he spoke to them today and they have not received the forms for ostomy pouches. Patient reports that he is down to two pouches and will need them very soon. Patient requesting call back at [phone]. Please review and advise, Cony Raygoza RN documented in this encounterSam[facility]06-02-2025 NoteHNO ID: [id number] Author: LEONARDO VILLAREAL RN Service: ? Author Type: Registered Nurse Type: Progress Notes Filed: 07/31/2024 09:39 Note Text: ET/WOCN Nursing Consult Topic: ET/WOCN Consultation Note ET Outcome: follow up with ulcer. Pt stated that he noted a lot of bleeding at the ulcer and his stoma. He also reported that his ulcer was healed and pouching system has been working well. Removed the pouch and assessment was done. No bleeding noted today. ET's Next Scheduled Visit: as needed Stoma Type: Loop ileostomy Diameter:1" (tight fit), pt was instructed to cut pouch opening 1 1/8" Location: RLQ Protrusion: Budded Mucosal condition and color: Red and moist Mucocutaneous junction Intact Peristomal Skin: Other: healed ulcer at the 9 o'clock Location of Skin Impairment: see above Peristomal contour: Rounded Supportive Tissue: Soft Character of output: liquid effluent Emptying frequency per day: 7-8 times per day Current pouching system: ConvaTec Hailey Fit Natura 1 3/4" durahesive flat flange, Cera ring, drainable pouch Current wearing time: 3-4 days Recommendations: Pouching System: same pouching system Comment: There were no bleeding noted from peristomal skin and stoma today. Pt will receive the schedule appliance package this week. Time Increment: 45 minutes SCOTTIE Robbins RN CWOCN [facility] nursing pager [phone] (M-F 7a-4p, Sat, Sun, Holiday 7a-3p)[facility]06-02-2025 History of Present illness Narrative* Leonardo Villareal RN - 07/31/2024 9:08 AM EDT Images from the original note were not included. ET/WOCN Nursing Consult Topic: ET/WOCN Consultation Note ET Outcome: follow up with ulcer. Pt stated that he noted a lot of bleeding at the ulcer and his stoma. He also reported that his ulcer was healed and pouching system has been working well. Removed the pouch and assessment was done. No bleeding noted today. ET's Next Scheduled Visit: as needed Stoma Type: Loop ileostomy Diameter:1" (tight fit), pt was instructed to cut pouch opening 1 1/8" Location: RLQ Protrusion: Budded Mucosal condition and color: Red and moist Mucocutaneous junction Intact Peristomal Skin: Other: healed ulcer at the 9 o'clock Location of Skin Impairment: see above Peristomal contour: Rounded Supportive Tissue: Soft Character of output: liquid effluent Emptying frequency per day: 7-8 times per day Current pouching system: ConvaTec Hailey Fit Natura 1 3/4" durahesive flat flange, Cera ring, drainable pouch Current wearing time: 3-4 days Recommendations: Pouching System: same pouching system Comment: There were no bleeding noted from peristomal skin and stoma today. Pt will receive the schedule appliance package this week. Time Increment: 45 minutes SCOTTIE Robbins RN CWOCN [facility] nursing pager [phone] (M-F 7a-4p, Sat, Sun, Holiday 7a-3p) documented in this encounterSam[facility]05-20-2025 NoteHNO ID: [id number] Author: PRAVEENA DURAN RN Service: ? Author Type: Registered Nurse Type: Progress Notes Filed: 07/18/2024 12:41 Note Text: [place] [address] Patient: Jai Luna Patient Address: [address] [place] [address] Preferred Gender: male Date of : 1950 Type of Stoma: Loop Ileostomy Diagnosis: Ileostomy Status Z93.2 OSTOMY SUPPLY ORDER FORM Pouch: ConvaTec: 1 ?" Natura + Drainable pouch, Transparent #[id number] 30 day use - 2 Boxes Wafer: ConvaTec: Hailey-Fit Natura 1 3/4" Flat Durahesive # [id number] 30 day use - 2 Boxes Moldable Ring: Sharri CeraRing Regular # [id number] 30 day use - 2 Boxes Refills: 11 Attending Physician: Dr. Cheung For immediate authorization, please contact the physician?s office. SIGNATURE: Praveena Duran RN PATIENT NAME: Jai Luna DATE: July 18, 2024 TIME: 12:38 PM CONTACT #: [phone]05-19-[facility] Note HNO ID: [id number] Author: PRAVEENA DURAN RN Service: ? Author Type: Registered Nurse Type: Progress Notes Filed: 07/18/2024 12:44 Note Text: WO Nursing Consult Topic: WOC Consultation Note Outcome: Pt to A30 for appointment with [facility] Nursing. He has an established ileostomy for several years. He is here today with complaints of peristomal ulcer and pain. We discussed switching from a flat to a convex pouching system. Pt agreed with this. He has an established relationship with [employer] for supplies. If he likes the new pouch he can order it from [employer]. I provided him with x4 sets of samples. Next Scheduled Visit: 2 week for f/u with WO nursing to assess peristomal ulcer and new pouching system Assessment: Stoma Type: Loop ileostomy Diameter: slightly larger than 1" Location: RLQ Protrusion: Budded Mucosal condition and color: Red and moist Mucocutaneous junction Intact Peristomal Skin: Ulceration at 9 o'clock- concern is for pressure related injury at this time. Ulcer measures 1cm x 0.5cm x 0.1cm. Wound bed is marbled moist red and yellow tissue. No active drainage. Induration noted 1cm around ulcer Peristomal contour: slightly concave directly around stoma, rounded and bulging to outer peristomal border Supportive Tissue: soft when lying, firm when sitting upright Character of output: bilious brown liquid Emptying frequency per day: varies Current pouching system: one-piece Sharri Premier convex drainable pouch. Stoma paste. Current wearing time: 2 days- seal was intact but concern is for pressure injury related to use of convexity. Will switch to flat pouching system to see if this helps. Recommendations: Skin Care: applied Convatec Stomahesive powder followed by 3m Cavilon no-sting skin sealant Pouching System: 1 3/4" Convatec SurFit Natura Durahesive flat cut-to-fit flange. Sharri CearRing. Drainable pouch. Wear Time Goal: 3 days Time Increment: 1 hour SCOTTIE Hoffman, RN, CWOCN For non-emergent [facility] Nursing patient care needs - Please place a consult via Epic under "ostomy". WO Nurse Available Hours: M-F: [phone]; Weekends AND Holidays: [phone] For emergent [facility] Nursing patient care needs - Page #[phone], during available hours only.[facility]05-19-[facility] History of Present illness Narrative* Praveena Duran, RN - 07/17/2024 8:59 AM EDT Images from the original note were not included. WO Nursing Consult Topic: WOC Consultation Note Outcome: Pt to A30 for appointment with [facility] Nursing. He has an established ileostomy for several years. He is here today with complaints of peristomal ulcer and pain. We discussed switching from a flat to a convex pouching system. Pt agreed with this. He has an established relationship with [employer] for supplies. If he likes the new pouch he can order it from [employer]. I provided him with x4 sets of samples. Next Scheduled Visit: 2 week for f/u with WOC nursing to assess peristomal ulcer and new pouching system Assessment: Stoma Type: Loop ileostomy Diameter: slightly larger than 1" Location: RLQ Protrusion: Budded Mucosal condition and color: Red and moist Mucocutaneous junction Intact Peristomal Skin: Ulceration at 9 o'clock- concern is for pressure related injury at this time. Ulcer measures 1cm x 0.5cm x 0.1cm. Wound bed is marbled moist red and yellow tissue. No active drainage. Induration noted 1cm around ulcer Peristomal contour: slightly concave directly around stoma, rounded and bulging to outer peristomalborder Supportive Tissue: soft when lying, firm when sitting upright Character of output: bilious brown liquid Emptying frequency per day: varies Current pouching system: one-piece [place] Premier convex drainable pouch. Stoma paste. Current wearing time: 2 days- seal was intact but concern is for pressure injury related to use of convexity. Will switch to flat pouching system to see if this helps. Recommendations: Skin Care: applied Convatec Stomahesive powder followed by 3m Cavilon no-sting skin sealant Pouching System: 1 3/4" Convatec SurFit Natura Durahesive flat cut-to-fit flange. [place] CearRing. Drainable pouch. Wear Time Goal: 3-4 days Time Increment: 1 hour SCOTTIE Hoffman, RN, CWOCN For non-emergent [facility] Nursing patient care needs - Please place a consult via [facility] under "ostomy". WO Nurse Available Hours: M-F: [phone]; Weekends & Holidays: [phone] For emergent [facility] Nursing patient care needs - Page #[phone], during available hours only. documented in this encounterSam[facility]05-[facility]25 Evaluation note* Diagnosis Onset Date Resolution Status Admit Date Spinal stenosis of lumbar re gion with neurogenic claudication acute July 06, 2024 8:28am Status post cervical spinal fusion a cute July 06, 2024 8:28am [facility] Work Phone: 1(164) 207-898605-08-2025 Evaluation note* Diagnosis Onset Date Resolution Status Admit Date Spinal stenosis of lumbar re gion with neurogenic claudication acute July 06, 2024 8:28am Status post cervical spinal fusion acute July 06, 2024 8: 28am Subclavian artery stenosis, left acu te August 23, 2024 9:49am 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 July 9:49am Spinal stenosis of lumbar re gion with neurogenic claudication acute Aug 1:14pm Status post cervical spinal fusion acute September 13, 2024 1:14pm Thoracic radiculopathy acute Ju ly 2024 1:14pm [facility] Work Phone: 1(725) 842-275205-08-2025 Evaluation note* Diagnosis Onset Date Resolution Status Admit Date Spinal stenosis of lumbar region with neurogenic claudication acute July 06, 2024 8: 28am Status post cervical spinal fusion acute July 06, 2024 8: 28am Subclavian artery stenosis, left acute August 23, 2024 9:49am 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 July 9:49am Spinal stenosis of lumbar region with neurogenic claudication acute September 13, 2024 1:14pm Status post cervical spinal fusion acute September 13, 2024 1:14pm Thoracic radiculopathy acute Ju ly 2024 1:14pm Lumbar stenosis acute October 132024 8:21am Obesity (BMI 30.0-34.9) acute A ugust 2024 8:21am Spinal stenosis of lumbar region with neurogenic claudication acute October 13 8:21am Thoracic radiculopathy acute Au bella 2024 8:21am [facility] Work Phone: [phone]) 988-859105-07-2025 Telephone encounter Note* Telephone Encounter - Norm Parker APRN.CNP - 07/05/2024 9:18 AM EDT Good Chaka russell is a mutual patient who was seen in the office this morning. He has a deep ulceration to the abdomen at the base of his stoma. Stoma output is normal and color is beefy red. The ulceration is painful. Would Dr. Duong or Rabia like to get him seen MACKENZIE or would they like to get him seen with one of the ostomy nurses MACKENZIE due to the concern of the potential for infection in the area and interference with the stoma. Thank you, Norm [facility]05-07-2025 Miscellaneous Notes* Telephone Encounter - Norm Parker APRN.CNP - 07/05/2024 9:18 AM EDT Chaka Mello is a mutual patient who was seen in the office this morning. He has a deep ulceration to the abdomen at the base of his stoma. Stoma output is normal and color is beefy red. The ulceration is painful. Would Dr. Duong or Rabia like to get him seen MACKENZIE or would they like to get him seen with one of the ostomy nurses MACKENZIE due to the concern of the potential for infection in the area and interference with the stoma. Thank you, Norm documented in this encounterSam[facility]05-[facility] History of Present illness Narrative* Norm Parker APRN.CNP - 07/05/2024 8:00 AM EDT Images from the original note were not included. SUBJECTIVE Jai Luna is a 74 year old male here today for acute concern. Chief Complaint Patient presents with: Derm Problem: ulcer near stoma for about 2 week has noted that it has enlarged since last bag change and very sore HPI Jai Luna is a 74 year old male. He is an established patient of Katy Faust MD. He is here today for concerns of issues with an ulcer near the stoma. Stoma also has been changing in shape,seems to be flattening out over the last few days. He has an ileostomy from prior abdominal surgeries. Onset for the ulcer has been 2-3 weeks ago. He is not able to change the bag/dressing daily due to restraint with insurance coverage of supplies. Site is sore. Prior surgeries with Dr. Cheung. His medications were reviewed today and his list is now up to date. Medications Current Outpatient Medications Medication Sig MAGNESIUM CARBONATE ORAL Take 1 tablet by mouth once daily. Calcium Lactate 100 mg calcium tab Take 1 tablet by mouth once daily. rosuvastatin (CRESTOR) 10 mg tablet Take 1 tablet by mouth once daily. clopidogrel (PLAVIX) 75 mg tablet Take 75 mg by mouth. multivitamin tablet Take 1 tablet by mouth once daily. aspirin, enteric coated (ADULT LOW DOSE ASPIRIN) 81 mg EC tablet Take 1 tablet by mouth once daily. coenzyme Q10 (COENZYME Q-10) 100 mg cap capsule Take 100 mg by mouth once daily. Cholecalciferol, Vitamin D3, 50 mcg (2,000 unit) cap Take 1 capsule by mouth two times a week. Miscellaneous Medical Supply Increase monthly supply of ostomy pouches to 12 per month(8 per month not adequate) No current facility-administered medications for this visit. ALLERGIES Allergen Reactions Cat Dander Other: See Comments Clindamycin GI Upset Codeine GI Upset ACTIVE PROBLEM LIST History of Pulmonary Embolism - 09/22/2023 Pvd (Peripheral Vascular Disease) - 09/22/2023 History of Dvt (Deep Vein Thrombosis) - 09/22/2023 Acute Deep Vein Thrombosis (Dvt) of Proximal Vein of Left Lower Extremity ([facility]) - 07/21/2022 Pulmonary Embolism and Infarction ([facility]) - 03/02/2022 Pulmonary Embolism ([facility]) - 02/13/2022 Hypokalemia - 02/10/2022 Urinary Retention - [address] ([facility]) - 01/28/2022 Rectal Cancer ([facility]) - 01/27/2022 Rectal Malignant Neoplasm ([facility]) - 05/29/2021 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 Bilateral Carotid Artery Stenosis - 04/30/2021 Cervical Radiculopathy - 04/30/2021 Hearing Loss - 04/30/2021 History of Cardiac Catheterization - 04/30/2021 Status Post Coronary Artery Bypass Graft - 04/30/2021 Atherosclerosis of Coronary Artery Bypass Graft - 01/18/2013 Dyslipidemia - 01/16/2013 History of Myocardial Infarction - 08/29/1998 Social History Tobacco Use Smoking status: Former Current packs/day: 0.00 Average packs/day: 1 pack/day for 30.0 years (30.0 ttl pk-yrs) Types: Cigarettes Start date: 01/28/1970 Quit date: 01/29/2000 Years since quittin.4 Smokeless tobacco: Never Vaping Use Vaping status: Never Used Substance Use Topics Alcohol use: Not Currently Comment: rarely Drug use: No Review of Systems Constitutional: Negative for chills, diaphoresis, fatigue and fever. Respiratory: Negative. Skin: Positive for wound. OBJECTIVE BP 138/80 Pulse 75 Wt 190 lb 4.1 oz (86.3kg) SpO2 97% Physical Exam Vitals and nursing note reviewed. Constitutional: General: He is awake. He is not in acute distress. Appearance: Normal appearance. He is well-developed and well-groomed. He is not ill-appearing, toxic-appearing or diaphoretic. HENT: Head: Normocephalic. Right Ear: External ear normal. Left Ear: External ear normal. Nose: Nose normal. Eyes: General: Vision grossly intact. Conjunctiva/sclera: Conjunctivae normal. Pupils: Pupils are equal, round, and reactive to light. Neck: Vascular: No JVD. Trachea: Trachea normal. Pulmonary: Effort: Pulmonary effort is normal. No accessory muscle usage, prolonged expiration or respiratory distress. Abdominal: Comments: Beefy red stoma to the right lateral abdomen. Around the 8 o'clock to 12 o'clock area beside the stoma there is a deep ulceration that is the area of concern. Skin: General: Skin is warm and dry. Capillary Refill: Capillary refill takes less than 2 seconds. Neurological: General: No focal deficit present. Mental Status: He is alert and oriented to person, place, and time. Mental status is at baseline. Psychiatric: Attention and Perception: Attention and perception normal. Mood and Affect: Mood and affect normal. Speech: Speech normal. Behavior: Behavior normal. Behavior is cooperative. Thought Content: Thought content normal. Cognition and Memory: Cognition and memory normal. Judgment: Judgment normal. ASSESSMENT/PLAN: 1. Skin ulcer of abdomen, with fat layer exposed (HCC) - ICD9: 707.8, ICD10: L98.492 (primary diagnosis) The area is deeply ulcerated. Stoma output is still normal and stoma is beefy red in color. WE willreach out to his surgery team to try and see if we can get him an appointment with Dr. Cheung or the nurse practitioner Rabia Sanchez along with the stoma nurses. 2. Presence of ileostomy (HCC) - ICD9: V44.2, ICD10: Z93.2 Output normal. 3. 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 Portions of this note have been entered by ancillary staff. I have reviewed and when necessary edited, so that they are an adequate record of my encounter with this patient Please note that parts of this document were created using voice recognition software and therefore may contain grammatical errors. Patient verbalizes understanding of instructions from today's visit and in agreement with treatmentplan. Questions answered. Agrees to call the office if questions, concerns of issues with acute symptoms not improving or if they worsen. See diagnoses and orders for additional plan(s). Allergies and medications were reviewed, list was updated, and refills given if needed. Past medical, surgical, social, and family history reviewed and updated as appropriate. Encouraged proper diet & exercise as well as compliance with taking medications. Age- appropriate health preventative measures were discussed.. Return if symptoms worsen or fail to improve. JORDON Carrillo documented in this encounterSam[facility]25 NoteHNO ID: [id number] Author: NORM PARKER APRN.CNP Service: ? Author Type: Nurse Practitioner Type: Progress Notes Filed: 07/05/2024 09:18 Note Text: SUBJECTIVE Jai Luna is a 74 year old male here today for acute concern. Chief Complaint Patient presents with: Derm Problem: ulcer near stoma for about 2 week has noted that it has enlarged since last bag change and very sore HPI Jai Luna is a 74 year old male. He is an established patient of Katy Faust MD. He is here today for concerns of issues with an ulcer near the stoma. Stoma also has been changing in shape, seems to be flattening out over the last few days. He has an ileostomy from prior abdominal surgeries. Onset for the ulcer has been 2-3 weeks ago. He is not able to change the bag/dressing daily due to restraint with insurance coverage of supplies. Site is sore. Prior surgeries with Dr. Cheung. His medications were reviewed today and his list is now up to date. Medications Current Outpatient Medications Medication Sig MAGNESIUM CARBONATE ORAL Take 1 tablet by mouth once daily. Calcium Lactate 100 mg calcium tab Take 1 tablet by mouth once daily. rosuvastatin (CRESTOR) 10 mg tablet Take 1 tablet by mouth once daily. clopidogrel (PLAVIX) 75 mg tablet Take 75 mg by mouth. multivitamin tablet Take 1 tablet by mouth once daily. aspirin, enteric coated (ADULT LOW DOSE ASPIRIN) 81 mg EC tablet Take 1 tablet by mouth once daily. coenzyme Q10 (COENZYME Q-10) 100 mg cap capsule Take 100 mg by mouth once daily. Cholecalciferol, Vitamin D3, 50 mcg (2,000 unit) cap Take 1 capsule by mouth two times a week. Miscellaneous Medical Supply Increase monthly supply of ostomy pouches to 12 per month(8 per month not adequate) No current facility-administered medications for this visit. ALLERGIES Allergen Reactions Cat Dander Other: See Comments Clindamycin GI Upset Codeine GI Upset ACTIVE PROBLEM LIST History of Pulmonary Embolism - 09/22/2023 Pvd (Peripheral Vascular Disease) - 09/22/2023 History of Dvt (Deep Vein Thrombosis) - 09/22/2023 Acute Deep Vein Thrombosis (Dvt) of Proximal Vein of Left Lower Extremity ([facility]) - 07/21/2022 Pulmonary Embolism and Infarction ([facility]) - 03/02/2022 Pulmonary Embolism ([facility]) - 02/13/2022 Hypokalemia - 02/10/2022 Urinary Retention - [address] ([facility]) - 01/28/2022 Rectal Cancer ([facility]) - 01/27/2022 Rectal Malignant Neoplasm ([facility]) - 05/29/2021 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 Bilateral Carotid Artery Stenosis - 04/30/2021 Cervical Radiculopathy - 04/30/2021 Hearing Loss - 04/30/2021 History of Cardiac Catheterization - 04/30/2021 Status Post Coronary Artery Bypass Graft - 04/30/2021 Atherosclerosis of Coronary Artery Bypass Graft - 01/18/2013 Dyslipidemia - 01/16/2013 History of Myocardial Infarction - 08/29/1998 Social History Tobacco Use Smoking status: Former Current packs/day: 0.00 Average packs/day: 1 pack/day for 30.0 years (30.0 ttl pk-yrs) Types: Cigarettes Start date: 01/28/1970 Quit date: 01/29/2000 Years since quittin.4 Smokeless tobacco: Never Vaping Use Vaping status: Never Used Substance Use Topics Alcohol use: Not Currently Comment: rarely Drug use: No Review of Systems Constitutional: Negative for chills, diaphoresis, fatigue and fever. Respiratory: Negative. Skin: Positive for wound. OBJECTIVE BP 138/80 Pulse 75 Wt 190 lb 4.1 oz (86.3kg) SpO2 97% Physical Exam Vitals and nursing note reviewed. Constitutional: General: He is awake. He is not in acute distress. Appearance: Normal appearance. He is well-developed and well-groomed. He is not ill-appearing, toxic-appearing or diaphoretic. HENT: Head: Normocephalic. Right Ear: External ear normal. Left Ear: External ear normal. Nose: Nose normal. Eyes: General: Vision grossly intact. Conjunctiva/sclera: Conjunctivae normal. Pupils: Pupils are equal, round, and reactive to light. Neck: Vascular: No JVD. Trachea: Trachea normal. Pulmonary: Effort: Pulmonary effort is normal. No accessory muscle usage, prolonged expiration or respiratory distress. Abdominal: Comments: Beefy red stoma to the right lateral abdomen. Around the 8 o'clock to 12 o'clock area beside the stoma there is a deep ulceration that is the area of concern. Skin: General: Skin is warm and dry. Capillary Refill: Capillary refill takes less than 2 seconds. Neurological: General: No focal deficit present. Mental Status: He is alert and oriented to person, place, and time. Mental status is at baseline. Psychiatric: Attention and Perception: Attention and perception normal. Mood and Affect: Mood and affect normal. Speech: Speech normal. Behavior: Behavior normal. Behavior is cooperative. Thought Content: Thought content normal. Cognition and Memory: Cognition and memory normal. Judgment: Judgment normal. ASSESSMENT/PLAN: (more content not included)...[facility]05-05-2025 Telephone encounter Note* Telephone Encounter - Norm Parker APRN.CNP - 07/03/2024 11:20 AM EDT Noted, agree we can see him to decide which would be best, likely will need wound center but can see the area first to decide. [facility]05-05-[facility] Miscellaneous Notes* Telephone Encounter - Norm Parker APRN.CNP - 07/03/2024 11:20 AM EDT Noted, agree we can see him to decide which would be best, likely will need wound center but can see the area first to decide. * Telephone Encounter - Celeste Maravilla MA - 07/03/2024 10:42 AM EDT Spoke to patient and he advised has had ulcer for 2-3 weeks not right by stoma. Was offered same day but just change colostomy bag and can not take off due to adhesive glue. Patient isnt sure if he needs referred to gerneral surgery or wound center at [facility]. Appointment made for Wednesday but aware routing to provider to review Celeste Maravilla MA documented in this encounterSam[facility]05-[facility] Telephone encounter Note * Telephone Encounter - Celeste Maravilla MA - 07/03/2024 10:42 AM EDT Spoke to patient and he advised has had ulcer for 2-3 weeks not right by stoma. Was offered same day but just change colostomy bag and can not take off due to adhesive glue. Patient isnt sure if he needs referred to gerneral surgery or wound center at [facility]. Appointment made for Wednesday but aware routing to provider to review Celeste Maravilla MA [facility]04-02-[facility] Instructions* Patient Instructions* Katy Faust MD - 05/31/2024 5:02 PM EDT - Contact Dr. Reed to schedule an appointment to discuss worsening symptoms and potential treatment options for lumbar stenosis. - When walking, lean forward on a cart or similar support to alleviate pressure on the nerves and improve walking distance. - Monitor for any new symptoms such as numbness in the crotch area, inability to move legs, or bladder retention. If these occur, seek immediate medical attention. - Continue wearing compression stockings to manage edema in both legs. - Consider performing gentle stretching exercises before getting out of bed to alleviate morning stiffness. - Maintain current medications, including baby aspirin and Plavix, as prescribed. Consider B12 1000 mcg, folate 1 mg, and B6 100 to 200 mg if not that much in your multivitamin. Consider getting more omega 3 oils--salmon, tuna, walnuts, edamame and ground flax seed as well. documented in this encounterSam[facility]04-02-2025 NoteHNO ID: [id number] Author: KATY FAUST MD Service: ? Author Type: Physician Type: Progress Notes Filed: 05/31/2024 17:06 Note Text: This note was created using Mango Reservationsriter. Subjective Jai Luna is a 74 year old male. Chaka is a 74-year-old male with a history of lumbar stenosis, presenting with worsening bilateral lower extremity weakness and pain. Chaka reports that after walking approximately 50 yards, he experiences significant weakness and aching in both legs, necessitating rest. He also reports persistent aching across his hips, particularly in the left hip, which is most pronounced upon waking and improves with stretching. He denies any numbness, bladder dysfunction, or bowel dysfunction. He has an ileostomy and reports no issues with bladder function. Chaka has a history of lumbar stenosis, confirmed by MRI, and has consulted with two orthopedic surgeons who found no joint abnormalities on x-rays. He has also undergone vascular studies, including an ultrasound and ankle-brachial index, which showed normal circulation. 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 He is currently on a regimen of baby aspirin and Plavix. Chaka also reports recent onset of pain radiating down his left thigh, which he describes as similar to sciatica. He has previously undergone cervical spine surgery by Dr. Reed for left shoulder pain, which provided relief. He has not yet consulted Dr. Reed regarding his lower back issues. Review of Systems Objective BP 138/68 Pulse 64 Temp 36.1 ?C (97 ?F) (Left Tympanic) Resp 16 Wt 88.2 kg (194 lb 7.1 oz) BMI 32.61 kg/m? Physical Exam Constitutional: Appearance: Normal appearance. Pulmonary: Effort: Pulmonary effort is normal. Musculoskeletal: Lumbar back: No spasms or tenderness. Comments: Noted pain is across iliac crests on back. Shows that pain goes from left buttocks and can go down lateral thigh Neurological: Mental Status: He is alert. Assessment and Plan # Spinal stenosis of lumbar region with neurogenic claudication (M48.062) # Lumbar radiculopathy (M54.16) - Symptoms of neurogenic claudication and lumbar radiculopathy, including bilateral lower extremity pain and weakness, are worsening. - Previous imaging studies, including MRIs, have confirmed lumbar stenosis. - Educated patient on the pathophysiology of neurogenic claudication and lumbar radiculopathy, emphasizing the role of nerve compression in symptomatology. - Recommended postural adjustments, such as leaning forward while walking, to alleviate nerve compression. - Advised patient to schedule a follow-up appointment with Dr. Siddiqui for further evaluation and potential surgical intervention. - Discussed the possibility of seeking a second opinion from another process control specialist if symptoms persist or worsen. # Pain in both lower extremities (M79.604) - Pain in both lower extremities is likely secondary to lumbar stenosis and radiculopathy. - Symptoms are exacerbated by ambulation and improve with rest. - Advised patient on the use of assistive devices, such as a shopping cart, to reduce pain during walking. - Recommended continuation of current pain management strategies and follow-up with Dr. Siddiqui for further evaluation. # Bilateral lower extremity edema (R60.0) - Chronic bilateral lower extremity edema, more pronounced on the left side. - Patient is currently using compression stockings to manage edema. - No signs of acute deep vein thrombosis; previous vascular studies were normal. - Continue current management with compression stockings. # Presence of ileostomy (HCC) (Z93.2) - No issues with ileostomy function reported. - No signs of bowel obstruction or ileus. - Continue routine care and monitoring of ileostomy. I spent a total of 35 minutes on the date of the service which included [id number] patient care, completing clinical documentation, obtaining and/or reviewing separately obtained history, performing a medically appropriate examination, counseling and educating the patient/family/caregiver, and ordering medications, tests, or procedures . Katy Faust MD The patient consented to the use of ambient Optics 1 software for draft documentation of the visit consistent with [facility]?s Notice of Privacy Practices. [facility]04-02-2025 History of Present illness Narrative* Katy Faust MD - 05/31/2024 4:30 PM EDT This note was created using Mango Reservationsriter. Subjective Jai Luna is a 74 year old male. Chaka is a 74-year-old male with a history of lumbar stenosis, presenting with worsening bilateral lower extremity weakness and pain. Chaka reports that after walking approximately 50 yards, he experiences significant weakness and aching in both legs, necessitating rest. He also reports persistent aching across his hips, particularly in the left hip, which is most pronounced upon waking and improves with stretching. He denies any n umbness, bladder dysfunction, or bowel dysfunction. He has an ileostomy and reports no issues with bladder function. Chaka has a history of lumbar stenosis, confirmed by MRI, and has consulted with two orthopedic surgeons who found no joint abnormalities on x-rays. He has also undergone vascular studies, including an ultrasound and ankle-brachial index, which showed normal circulation. 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 He is currently on a regimen of baby aspirin and Plavix. Chaka also reports recent onset of pain radiating down his left thigh, which he describes as similarto sciatica. He has previously undergone cervical spine surgery by Dr. Reed for left shoulder pain, which provided relief. He has not yet consulted Dr. Reed regarding his lower back issues. Review of Systems Objective BP 138/68 Pulse 64 Temp 36.1 C (97 F) (Left Tympanic) Resp 16 Wt 88.2 kg (194 lb 7.1 oz) BMI 32.61 kg/m Physical Exam Constitutional: Appearance: Normal appearance. Pulmonary: Effort: Pulmonary effort is normal. Musculoskeletal: Lumbar back: No spasms or tenderness. Comments: Noted pain is across iliac crests on back. Shows that pain goes from left buttocks and can go down lateral thigh Neurological: Mental Status: He is alert. Assessment and Plan # Spinal stenosis of lumbar region with neurogenic claudication (M48.062) # Lumbar radiculopathy (M54.16) - Symptoms of neurogenic claudication and lumbar radiculopathy, including bilateral lower extremitypain and weakness, are worsening. - Previous imaging studies, including MRIs, have confirmed lumbar stenosis. - Educated patient on the pathophysiology of neurogenic claudication and lumbar radiculopathy, emphasizing the role of nerve compression in symptomatology. - Recommended postural adjustments, such as leaning forward while walking, to alleviate nerve compression. - Advised patient to schedule a follow-up appointment with Dr. Siddiqui for further evaluation and potential surgical intervention. - Discussed the possibility of seeking a second opinion from another process control specialist if symptoms persist or worsen. # Pain in both lower extremities (M79.604) - Pain in both lower extremities is likely secondary to lumbar stenosis and radiculopathy. - Symptoms are exacerbated by ambulation and improve with rest. - Advised patient on the use of assistive devices, such as a shopping cart, to reduce pain during walking. - Recommended continuation of current pain management strategies and follow-up with Dr. Siddiqui for further evaluation. # Bilateral lower extremity edema (R60.0) - Chronic bilateral lower extremity edema, more pronounced on the left side. - Patient is currently using compression stockings to manage edema. - No signs of acute deep vein thrombosis; previous vascular studies were normal. - Continue current management with compression stockings. # Presence of ileostomy (HCC) (Z93.2) - No issues with ileostomy function reported. - No signs of bowel obstruction or ileus. - Continue routine care and monitoring of ileostomy. I spent a total of 35 minutes on the date of the service which included [id number] patient care, completing clinical documentation, obtaining and/or reviewing separately obtained history, performing a medically appropriate examination, counseling and educating the patient/family/caregiver, and ordering medications, tests, or procedures . Katy Faust MD The patient consented to the use of [employer] software for draft documentation of the visit consistent with [facility] Notice of Privacy Practices. documented in this encounterSam[facility]02-[facility]25 Evaluation note* Diagnosis Onset Date Resolution Status Admit Date Spinal stenosis of lumbar region with neurogenic claudication acute April 21, 2 025 12:23pm Status post cervical spinal fusion acute April 21, 025 12:23pm Spinal stenosis of lumbar region with neurogenic claudication acute July 06, 2024 8: 28am Status post cervical spinal fusion acute July 06, 2024 8: 28am [facility] Work Phone: [phone] Telephone encounter Note* Telephone Encounter - Alba Higginbotham MA - 02/28/2024 9:20 AM EST Nothing in Care Everywhere. [facility]12-30-[facility] Miscellaneous Notes* Telephone Encounter - Alba Higginbotham MA - 02/28/2024 9:20 AM EST Nothing in Care Everywhere. * Telephone Encounter - Katy Faust MD - 02/27/2024 11:38 PM EST See MyChart reply documented in this encounterSam[facility]12-29-2024 Telephone encounter Note * Telephone Encounter - Katy Faust MD - 02/27/2024 11:38 PM EST See MyChart reply [facility]12-23-[facility]24 NoteHNO ID: [id number] Author: ROBBIE CAM MA Service: ? Author Type: Occupational Ther Type: Progress Notes Filed: 02/21/2024 08:31 Note Text: POPULATION HEALTH NAVIGATION OUTREACH Action/FYI Patient replied via wanting to schedule for flank pain, I sent info for nurse human capital consultant. Reason for Outreach Returned Call/MyChart Patient Contacted: Spoke to patient/parent/or legal guardian Patient identified by name and date of : Yes Returned call/MyChart actions taken: MyChart message sent Navigation Signature: Robbie Cam MA February 21, 2024 8:30 [facility]12-20-2024 NoteHNO ID: [id number] Author: ROBBIE CAM MA Service: ? Author Type: Occupational Ther Type: Progress Notes Filed: 02/18/2024 10:29 Note Text: POPULATION HEALTH NAVIGATION OUTREACH Action/FYI HCC Return in about 6 months (around 07/03/2024) for Follow up on chronic conditions and medications.. Left message for patient to call back. Mychart message sent. Reason for Outreach Care Gap/HCC or Scheduling Wellness Visits Care Gaps due: Medicare Annual Wellness Visit Follow-up Appointment Patient Contacted: Unable or unnecessary to reach patient: Left message MyChart message sent HCC related Navigation Signature: Robbie Cam MA February 18, 2024 10:16 [facility]12-20-2024 History of Present illness Narrative* Robbie Cam MA - 02/18/2024 10:16 AM EST POPULATION HEALTH NAVIGATION OUTREACH Action/FYI HCC Return in about 6 months (around 07/03/2024) for Follow up on chronic conditions and medications.. Left message for patient to call back. Mychart message sent. Reason for Outreach Care Gap/HCC or Scheduling Wellness Visits Care Gaps due: Medicare Annual Wellness Visit Follow-up Appointment Patient Contacted: Unable or unnecessary to reach patient: Left message MyChart message sent HCC related Navigation Signature: Robbie Cam MA February 18, 2024 10:16 AM documented in this [facility] NotePatient Outreach (NETNAV) JAI LUNA ([id number]) 1950 M Date Time Provider Department 02/18/24 ROBBIE CAM During your visit today, we recorded the following information about you: Robbie Cam MA 02/18/2024 10:29 AM Signed POPULATION HEALTH NAVIGATION OUTREACH Action/FYI HCC Return in about 6 months (around 07/03/2024) for Follow up on chronic conditions and medications.. Left message for patient to call back. Mychart message sent. Reason for Outreach Care Gap/HCC or Scheduling Wellness Visits Care Gaps due: Medicare Annual Wellness Visit Follow-up Appointment Patient Contacted: Unable or unnecessary to reach patient: Left message MyChart message sent HCC related Navigation Signature: Robbie Cam MA February 18, 2024 10:16 AM Robbie Cam MA 02/21/2024 8:31 AM Signed POPULATION HEALTH NAVIGATION OUTREACH Action/FYI Patient replied via wanting to schedule for flank pain, I sent info for nurse human capital consultant. Reason for Outreach Returned Call/MyChart Patient Contacted: Spoke to patient/parent/or legal guardian Patient identified by name and date of : Yes Returned call/MyChart actions taken: MyChart message sent Navigation Signature: Robbie Cam MA February 21, 2024 8:30 AM Allergies As of Date: 02/18/2024 Noted Allergy Reaction CAT DANDER 02/27/2022 14 - Other: See Comments CLINDAMYCIN 03/28/2021 8 - GI Upset CODEINE 06/20/2007 8 - GI Upset Date Reviewed: 01/04/2024 Reviewed by: Norm Parker APRN.SECURITY SYSTEM INSTALLER - Fully Assessed Reason for Visit: Population Health Navigation Outreach [3910] Cmt: ROCÍO MEYERS Prescriptions as of 02/21/2024 - rosuvastatin (CRESTOR) 10 mg tablet Take 1 tablet by mouth once daily. - Miscellaneous Medical Supply Increase monthly supply of ostomy pouches to 12 per month(8 per month not adequate) - clopidogrel (PLAVIX) 75 mg tablet Take 75 mg by mouth. - multivitamin tablet Take 1 tablet by mouth once daily. - aspirin, enteric coated (ADULT LOW DOSE ASPIRIN) 81 mg EC tablet Take 1 tablet by mouth once daily. - coenzyme Q10 (COENZYME Q-10) 100 mg cap capsule Take 100 mg by mouth once daily. - Cholecalciferol, Vitamin D3, 50 mcg (2,000 unit) cap Take 1 capsule by mouth two times a week. 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] 04/30/2021 Atherosclerosis of coronary artery bypass graft*01/18/2013 Bilateral carotid artery stenosis [I65.23] 04/30/2021 Cervical radiculopathy [M54.12] 04/30/2021 Dyslipidemia [E78.5] 01/16/2013 Essential hypertension [I10] 04/30/2021 04/06/2022 Hearing loss [H91.90] 04/30/2021 History of cardiac catheterization [Z98.890] 04/30/2021 History of myocardial infarction [I25.2] 08/29/1998 Status post coronary artery bypass graft [Z95.1]04/30/2021 Rectal malignant neoplasm (HCC) [C20] 05/29/2021 Obesity, Class I, BMI 30-34.9 [E66.811] 01/26/2022 04/06/2022 Rectal cancer (HCC) [C20] 01/27/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) [Z93.2] 01/28/2022 Postoperative pain [G89.18] 01/28/2022 02/24/2022 Intraabdominal hemorrhage [R58] 02/01/2022 02/24/2022 Respiratory insufficiency [R06.89] 02/01/2022 02/10/2022 FINESSE (acute kidney injury) (HCC) [N17.9] 02/03/2022 07/07/2022 Class: Acute Malnutrition of mild degree (HCC) [E44.1] 02/05/2022 05/22/2022 Obesity, Class II, BMI 35-39.9 [E66.812] 02/05/2022 04/06/2022 Urinary retention [R33.9] 2022 Hypophosphataemia [E83.39] 2022 02/24/2022 Hypokalemia [E87.6] 02/10/2022 Pulmonary embolism (HCC) [I26.99] 02/13/2022 Inadequate pain control [R52] 02/16/2022 02/18/2022 Pulmonary embolism and infarction (HCC) [I26.99]03/02/2022 Pre-op evaluation [Z01.818] 05/18/2022 07/07/2022 Acute deep vein thrombosis (DVT) of proximal ve*07/21/2022 History of pulmonary embolism [Z86.711] 09/22/2023 PVD (peripheral vascular disease) (HCC) [I73.9] 09/22/2023 History of DVT (deep vein thrombosis) [Z86.718] 09/22/2023 Encounter Status:Closed by DORINA, ROBBIE on 02/18/24[facility]12-16-[facility]24 Telephone encounter Note* Telephone Encounter - Katy Faust MD - 02/14/2024 7:55 PM EST Noted. Kayt Faust MD [facility]12-16-[facility] Miscellaneous Notes* Telephone Encounter - Katy Faust MD - 02/14/2024 7:55 PM EST Noted. Katy Faust MD * Telephone Encounter - Ginger Ingram LPN - 02/14/2024 9:40 AM EST Patient calling his had been having severe flank pain both sides. Rates his pain at a 10 when he lays down. No history of kidney stones. He has history of colon cancer and says has blood in stool allthe time, has ileostomy. He said has no problems urinating. He said he had neck fusion surgery in December [address] Siddiqui [facility]. Advised patient to go to [facility] ER for evaluation. He said has no ride until his comes home, has one car. Patient said he would go to ER after comes home. documented in this encounter[facility]12-[facility]24 Telephone encounter Note * Telephone Encounter - Ginger Ingram LPN - 02/14/2024 9:40 AM EST Patient calling his had been having severe flank pain both sides. Rates his pain at a 10 when he lays down. No history of kidney stones. He has history of colon cancer and says has blood in stool allthe time, has ileostomy. He said has no problems urinating. He said he had neck fusion surgery in December [address] Siddiqui [facility]. Advised patient to go to [facility] ER for evaluation. He said has no ride until his comes home, has one car. Patient said he would go to ER after comes home. [facility]11-19-2024 [facility] Medical Records Department [address] [place] [id number] History Physical Exam 01/18/24 0728 MR#: [id number] Acct: [id number] Name: JAI LUNA Rep #: [id number] : 1950 73 From: Howard Siddiqui MD PCP: Dr. Katy Faust MD Status:REG [facility] Location: [place] [id number] History and Physical Date of Admission: 01/18/24 MR#: [id number] Acct: [id number] Name: JAI LUNA Rep #: [id number] : 1950 Provider: Dr. Howard Siddiqui MD Age/Sex: 73/M Location: [facility] Status: Signed Intake Vital Signs 11/09/2409:35 Height 5 ft 6 in Intake Visit Reasons: cervical spine Accompanied by: Self Allergies clindamycin Allergy (Intermediate, Verified 01/11/24 08:03) Abd cramps/diarrheacat dander (cats) Adverse Reaction (Verified 01/11/24 08:03) PT UNSURE OF REACTIONcodeine Adverse Reaction (Verified 01/11/24 08:03) Upset Stomach Medications ???Medication ???Instructions ???Recorded ???Confirmed ???Type coenzyme Q10 50 mg capsule (Co 100 mg PO DAILY vitamin 03/04/18 01/11/24 History Q-10) cholecalciferol (vitamin D3) 50 4,000 unit PO DAILY vitamin 07/21/19 01/11/24 History mcg (2,000 unit) capsule aspirin 81 mg tablet,delayed 81 mg PO DAILY 05/05/23 01/11/24 History release (Adult Low Dose Aspirin) magnesium 250 mg tablet 500 mg PO DAILY 05/05/23 01/11/24 History rosuvastatin 10 mg tablet 10 mg PO QDAY #90 tabs 11/10/23 01/11/24 Rx clopidogrel 75 mg tablet (Plavix) 75 mg PO DAILY 01/04/24 01/11/24 History multivitamin 1 tab PO DAILY 01/04/24 01/11/24 History Have you fallen in the past year?: No PFSH Medical History MRSA (methicillin resistant staph aureus) culture positive Deaf Wears hearing aid Wears glasses Cancer High cholesterol DVT (deep venous thrombosis) Injury of head and neck Loss of consciousness Gastric reflux Former smoker History of edema History of echocardiogram History of stress test Cardiology follow-up encounter Pulmonary embolism Gastric artery aneurysm Ileostomy present Rectal cancer Intra abdominal hemorrhage Dilated aortic root 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 Subclavian artery stenosis, left GERD (gastroesophageal reflux disease) Meniere's disease Bilateral carotid artery stenosis Old myocardial infarction Premature ventricular contraction Peripheral vascular disease Presence of stent in coronary artery ( 12/22/16) Essential hypertension 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 Hypoacusis Dyslipidemia HTN (hypertension) CAD (coronary artery disease) Surgical History History of coronary artery stent placement Presence of coronary angioplasty implant and graft ( 12/22/16) History of tonsillectomy History of transurethral resection of prostate ( 09/2016) S/P CABG (coronary artery bypass graft) ( 09/16/98) S/P PTCA (percutaneous transluminal coronary angioplasty) ( 12/22/16) Family History Father CAD (coronary artery disease) Myocardial infarction, Onset Age: 45Mother Carotid artery stenosis Social History Smoking Status: Former smoker how long ago did patient quit smokin alcohol intake: current details: occasional HPI cervical spine Details: This documentation accurately reflects the service provided and the decisions made by me, Dr. Howard Siddiqui MD 01/11/24 0750. Part of today???s visit was documented by Radha MUSTAFA, acting as scribe. JAI LUNA is a 73 year old M here today for preop, cervical spine, dos 01/18/24. C5-7 ACDF. He continues to have left sided arm and leg weakness. HPI from 12/13/23: JAI LUNA is a 73 year old M here today for a MRI review of his Cervical and Lumbar Spine. Patient states no changes. Patient states the pain is the same as before the MRI's. Patient states lower back isn't to bad now it aches in the morning. Patient states left shoulder and arm are the worse. HPI from 11/04/23: JAI LUNA is a 73 year old M here today for Lumbar and Cervical pain. Patient went to the dentist yesterday and to lay down it bothered his back and then he had a pain down his left arm. Feels that he is losing muscle mass of his left arm over his biceps. Patient states his left leg is almost useless, patient can't walk distances. Patient has never had injections in his back. Patient has no numbness or tingling that shoots down his legs. The other day he did have pain in his left leg. Patient states his (more content not included)...[facility]11-05-2024 NoteHNO ID: [id number] Author: NORM PARKER APRN.SECURITY SYSTEM INSTALLER Service: ? Author Type: Nurse Practitioner Type: Progress Notes Filed: 01/05/2024 15:29 Note Text: SUBJECTIVE Jai Luna is a 73 year old male here today for a check up on his medical problems. Chief Complaint Patient presents with: Pre-Op Exam: ACDF of C5-[address] Siddiqui HPI Jai Luna is an 73 year old male presents to the office for pre-op examination. Is scheduled to have ACDF C5-C7 done on 01/18/[address] Siddiqui at [facility]. History of having anesthesia: Yes. Any reaction from anesthesia in the past: No. Has had mulitple surgeries in the last few years and done well with this. Personal or family history of heart disease: Yes: had stress test yesterday. Chronic diseases controlled: Yes. Currently taking a blood thinner: Yes: Plavix. Patient denies chest pain, SOB, dizziness, palpitations, one sided weakness, dropping of face or mouth, fever, or recent sickness. No history of CVA or NM. Sees [facility], had a stress test yesterday. Everything was good with that. Has a stent in the left arm, on Plavix and baby aspirin. Has been advised to hold the plavix starting 7 days before. EKG and labs tomorrow. History of blood clots. Prior CABG. His medications were reviewed today and his list is now up to date. Medications Current Outpatient Medications Medication Sig rosuvastatin (CRESTOR) 10 mg tablet Take 1 tablet by mouth once daily. clopidogrel (PLAVIX) 75 mg tablet Take 75 mg by mouth. multivitamin tablet Take 1 tablet by mouth once daily. aspirin, enteric coated (ADULT LOW DOSE ASPIRIN) 81 mg EC tablet Take 1 tablet by mouth once daily. coenzyme Q10 (COENZYME Q-10) 100 mg cap capsule Take 100 mg by mouth once daily. Cholecalciferol, Vitamin D3, 50 mcg (2,000 unit) cap Take 1 capsule by mouth two times a week. Miscellaneous Medical Supply Increase monthly supply of ostomy pouches to 12 per month(8 per month not adequate) No current facility-administered medications for this visit. ALLERGIES Allergen Reactions Cat Dander Other: See Comments Clindamycin GI Upset Codeine GI Upset ACTIVE PROBLEM LIST History of Pulmonary Embolism - 09/22/2023 Pvd (Peripheral Vascular Disease) ([facility]) - 09/22/2023 History of Dvt (Deep Vein Thrombosis) - 09/22/2023 Acute Deep Vein Thrombosis (Dvt) of Proximal Vein of Left Lower Extremity ([facility]) - 07/21/2022 Pulmonary Embolism and Infarction ([facility]) - 03/02/2022 Pulmonary Embolism ([facility]) - 02/13/2022 Hypokalemia - 02/10/2022 Urinary Retention - [address] ([facility]) - 01/28/2022 Rectal Cancer ([facility]) - 01/27/2022 Rectal Malignant Neoplasm ([facility]) - 05/29/2021 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 Bilateral Carotid Artery Stenosis - 04/30/2021 Cervical Radiculopathy - 04/30/2021 Hearing Loss - 04/30/2021 History of Cardiac Catheterization - 04/30/2021 Status Post Coronary Artery Bypass Graft - 04/30/2021 Atherosclerosis of Coronary Artery Bypass Graft - 01/18/2013 Dyslipidemia - 01/16/2013 History of Myocardial Infarction - 08/29/1998 Social History Tobacco Use Smoking status: Former Current packs/day: 0.00 Average packs/day: 1 pack/day for 30.0 years (30.0 ttl pk-yrs) Types: Cigarettes Start date: 01/28/1970 Quit date: 01/29/2000 Years since quittin.9 Smokeless tobacco: Never Vaping Use Vaping status: Never Used Substance Use Topics Alcohol use: Not Currently Comment: rarely Drug use: No Review of Systems Constitutional: Negative. Eyes: Negative for visual disturbance. Respiratory: Negative for chest tightness and shortness of breath. Cardiovascular: Negative for chest pain, palpitations and leg swelling. Neurological: Negative for seizures, syncope, facial asymmetry and speech difficulty. OBJECTIVE BP 136/74 Pulse 64 Ht 5' 4.75" (1.65m) Wt 189 lb 6 oz (85.9kg) SpO2 98% BMI 31.74 kg/(m2). Physical Exam Vitals and nursing note reviewed. Constitutional: General: He is awake. He is not in acute distress. Appearance: He is well-developed and well-groomed. He is not ill-appearing, toxic-appearing or diaphoretic. HENT: Head: Normocephalic. Eyes: General: Vision grossly intact. Conjunctiva/sclera: Conjunctivae normal. Pupils: Pupils are equal, round, and reactive to light. Neck: Vascular: No JVD. Cardiovascular: Rate and Rhythm: Normal rate and regular rhythm. Heart sounds: Normal heart sounds. No murmur heard. Pulmonary: Effort: Pulmonary effort is normal. No accessory muscle usage, prolonged expiration or respiratory distress. Breath sounds: Normal breath sounds. Musculoskeletal: General: Normal range of motion. Cervical back: Normal range of motion and neck supple. Skin: General: Skin is warm and dry. Capillary Refill: Capillary refill takes less than 2 seconds. Neurological: General: No focal deficit present. Mental Status: He is alert and oriented to person, (more content not included)...[facility]11-05-2024 History of Present illness Narrative* Norm Parker APRN.SECURITY SYSTEM INSTALLER - 01/04/2024 2:42 PM EST SUBJECTIVE Jai Luna is a 73 year old male here today for a check up on his medical problems. Chief Complaint Patient presents with: Pre-Op Exam: ACDF of C5-[address] Siddiqui HPI Jai Luna is an 73 year old male presents to the office for pre-op examination. Is scheduled to have ACDF C5-C7 done on 01/18/[address] Siddiqui at [facility]. History of having anesthesia: Yes. Any reaction from anesthesia in the past: No. Has had mulitple surgeries in the last few years and done well with this. Personal or family history of heart disease: Yes: had stress test yesterday. Chronic diseases controlled: Yes. Currently taking a blood thinner: Yes: Plavix. Patient denies chest pain, SOB, dizziness, palpitations, one sided weakness, dropping of face or mouth, fever, or recent sickness. No history of CVA or NM. Sees [facility], had a stress test yesterday. Everything was good with that. Has a stent in the left arm, on Plavix and baby aspirin. Has been advised to hold the plavix starting 7 days before. EKG and labs tomorrow. History of blood clots. Prior CABG. His medications were reviewed today and his list is now up to date. Medications Current Outpatient Medications Medication Sig rosuvastatin (CRESTOR) 10 mg tablet Take 1 tablet by mouth once daily. clopidogrel (PLAVIX) 75 mg tablet Take 75 mg by mouth. multivitamin tablet Take 1 tablet by mouth once daily. aspirin, enteric coated (ADULT LOW DOSE ASPIRIN) 81 mg EC tablet Take 1 tablet by mouth once daily. coenzyme Q10 (COENZYME Q-10) 100 mg cap capsule Take 100 mg by mouth once daily. Cholecalciferol, Vitamin D3, 50 mcg (2,000 unit) cap Take 1 capsule by mouth two times a week. Miscellaneous Medical Supply Increase monthly supply of ostomy pouches to 12 per month(8 per month not adequate) No current facility-administered medications for this visit. ALLERGIES Allergen Reactions Cat Dander Other: See Comments Clindamycin GI Upset Codeine GI Upset ACTIVE PROBLEM LIST History of Pulmonary Embolism - 09/22/2023 Pvd (Peripheral Vascular Disease) ([facility]) - 09/22/2023 History of Dvt (Deep Vein Thrombosis) - 09/22/2023 Acute Deep Vein Thrombosis (Dvt) of Proximal Vein of Left Lower Extremity ([facility]) - 07/21/2022 Pulmonary Embolism and Infarction ([facility]) - 03/02/2022 Pulmonary Embolism ([facility]) - 02/13/2022 Hypokalemia - 02/10/2022 Urinary Retention - [address] ([facility]) - 01/28/2022 Rectal Cancer ([facility]) - 01/27/2022 Rectal Malignant Neoplasm ([facility]) - 05/29/2021 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 Bilateral Carotid Artery Stenosis - 04/30/2021 Cervical Radiculopathy - 04/30/2021 Hearing Loss - 04/30/2021 History of Cardiac Catheterization - 04/30/2021 Status Post Coronary Artery Bypass Graft - 04/30/2021 Atherosclerosis of Coronary Artery Bypass Graft - 01/18/2013 Dyslipidemia - 01/16/2013 History of Myocardial Infarction - 08/29/1998 Social History Tobacco Use Smoking status: Former Current packs/day: 0.00 Average packs/day: 1 pack/day for 30.0 years (30.0 ttl pk-yrs) Types: Cigarettes Start date: 01/28/1970 Quit date: 01/29/2000 Years since quittin.9 Smokeless tobacco: Never Vaping Use Vaping status: Never Used Substance Use Topics Alcohol use: Not Currently Comment: rarely Drug use: No Review of Systems Constitutional: Negative. Eyes: Negative for visual disturbance. Respiratory: Negative for chest tightness and shortness of breath. Cardiovascular: Negative for chest pain, palpitations and leg swelling. Neurological: Negative for seizures, syncope, facial asymmetry and speech difficulty. OBJECTIVE BP 136/74 Pulse 64 Ht 5' 4.75" (1.65m) Wt 189 lb 6 oz (85.9kg) SpO2 98% BMI 31.74 kg/(m^2). Physical Exam Vitals and nursing note reviewed. Constitutional: General: He is awake. He is not in acute distress. Appearance: He is well-developed and well-groomed. He is not ill-appearing, toxic-appearing or diaphoretic. HENT: Head: Normocephalic. Eyes: General: Vision grossly intact. Conjunctiva/sclera: Conjunctivae normal. Pupils: Pupils are equal, round, and reactive to light. Neck: Vascular: No JVD. Cardiovascular: Rate and Rhythm: Normal rate and regular rhythm. Heart sounds: Normal heart sounds. No murmur heard. Pulmonary: Effort: Pulmonary effort is normal. No accessory muscle usage, prolonged expiration or respiratory distress. Breath sounds: Normal breath sounds. Musculoskeletal: General: Normal range of motion. Cervical back: Normal range of motion and neck supple. Skin: General: Skin is warm and dry. Capillary Refill: Capillary refill takes less than 2 seconds. Neurological: General: No focal deficit present. Mental Status: He is alert and oriented to person, place, and time. Mental status is at baseline. Cranial Nerves: No cranial nerve deficit. Sensory: No sensory deficit. Psychiatric: Attention and Perception: Attention and perception normal. Mood and Affect: Mood normal. Speech: Speech normal. Behavior: Behavior normal. Behavior is cooperative. Thought Content: Thought content normal. Judgment: Judgment normal. ASSESSMENT/PLAN: 1. Cervical radiculopathy - ICD9: 723.4, ICD10: M54.12 (primary diagnosis) Scheduled to have ACDF C5-C7 done on 01/18/[address] Siddiqui at [facility]. 2. Spinal stenosis in cervical region - ICD9: 723.0, ICD10: M48.02 See #1 3. Protrusion of cervical intervertebral disc - ICD9: 722.0, ICD10: M50.20 See #1 4. Pre-op evaluation - ICD9: V72.84, ICD10: Z01.818 Based on physical exam done at today's visit, negative review of systems, the patient can be cleared for surgery from a primary care standpoint if pending labs are stable and stress test results are reviewed and stable and patient is cleared by his cardiology team and vascular team. At that point he would be able to proceed with planned procedure at the discretion of the performing provider. 5. Status post coronary artery bypass graft - ICD9: V45.81, ICD10: Z95.1 Following with cardiology, per patient stress test yesterday was without issues, needs cleared by cardiology. 6. PVD (peripheral vascular disease) (HCC) - ICD9: 443.9, ICD10: I73.9 On Plavix per vascular, needs officially cleared by them. 7. History of DVT (deep vein thrombosis) - ICD9: V12.51, ICD10: Z86.718 Monitor post-op for any issues. Mobility as much as able. Portions of this note have been entered by ancillary staff. I have reviewed and when necessary edited, so that they are an adequate record of my encounter with this patient Please note that parts of this document were created using voice recognition software and therefore may contain grammatical errors. Patient verbalizes understanding of instructions from today's visit and in agreement with treatmentplan. Questions answered. Agrees to call the office if questions, concerns of issues with acute symptoms not improving or if they worsen. See diagnoses and orders for additional plan(s). Allergies and medications were reviewed, list was updated, and refills given if needed. Past medical, surgical, social, and family history reviewed and updated as appropriate. Encouraged proper diet & exercise as well as compliance with taking medications. Age- appropriate health preventative measures were discussed. Return in about 6 months (around 07/03/2024) for Follow up on chronic conditions and medications.. Norm Parker APRN-SECURITY SYSTEM INSTALLER documented [facility] this [facility] Telephone encounter Note * Telephone Encounter - Don Feldman LPN - 12/22/2023 1:36 PM EDT Last appointment was 11/30/23. Pre-op is to be within 30 days of surgery date and so will have patient keep appointment. [facility] Miscellaneous Notes* Telephone Encounter - Don Feldman LPN - 12/22/2023 1:36 PM EDT Last appointment was 11/30/23. Pre-op is to be within 30 days of surgery date and so will have patient keep appointment. * Telephone Encounter - Saba Steven LPN - 12/22/2023 11:08 AM EDT Patient scheduled for 01/17 for spine surgery with Dr. Siddiqui. Patient is scheduled for pre op on 01/03. Patient states if he does not know for sure if needs that appointment for pre op, if he does notplease call and cancel. If patient does need the appt no need to let him know. Dr. Siddiqui is to be faxing the form. documented in this encounterSam[facility] Telephone encounter Note * Telephone Encounter - Saba Steven LPN - 12/22/2023 11:08 AM EDT Patient scheduled for 01/17 for spine surgery with Dr. Siddiqui. Patient is scheduled for pre op on 01/03. Patient states if he does not know for sure if needs that appointment for pre op, if he does notplease call and cancel. If patient does need the appt no need to let him know. Dr. Siddiqui is to be faxing the form. [facility] History of Present illness Narrative* Norm Parker APRN.SECURITY SYSTEM INSTALLER - 11/30/2023 9:53 AM EDT Images from the original note were not included. SUBJECTIVE Jai Luna is a 73 year old male here today for acute concern. Chief Complaint Patient presents with: Pain (Shoulder Pain): left has been to PT at [facility] per Dr. Siddiqui but did not help. MRI is scheduled 12/09/23 through [facility] Jai Luna is a 73 year old male. He is an established patient of Katy Faust MD. He is here today acutely for concerns of left shoulder pain. Rated as 10/10 at times. Radiates down from theneck to arm. Described as a burning and throbbing, impacting sleep. He has done PT at [facility] with no improvement. Seeing Dr. Siddiqui with [facility] and is getting an MRI done 12/08.Concerns of needing something for the pain. He is on Plavix. Allergies to codeine. Prior steroid joint injections were helpful but lately not improving in his pain. Constant, taking tylenol and helpsa little. Right handed. His medications were reviewed today and his list is now up to date. Medications Current Outpatient Medications Medication Sig clopidogrel (PLAVIX) 75 mg tablet Take 75 mg by mouth. Magnesium 250 mg tab Take 250 mg by mouth once daily. multivitamin tablet Take 1 tablet by mouth once daily. aspirin, enteric coated (ADULT LOW DOSE ASPIRIN) 81 mg EC tablet Take 1 tablet by mouth once daily. coenzyme Q10 (COENZYME Q-10) 100 mg cap capsule Take 100 mg by mouth once daily. Cholecalciferol, Vitamin D3, 50 mcg (2,000 unit) cap Take 1 capsule by mouth two times a week. HYDROcodone-acetaminophen (NORCO) 5-325 mg per tablet Take 1-2 tablets by mouth every 8 hours as needed for pain for up to 7 days. Miscellaneous Medical Supply Increase monthly supply of ostomy pouches to 12 per month(8 per month not adequate) No current facility-administered medications for this visit. ALLERGIES Allergen Reactions Cat Dander Other: See Comments Clindamycin GI Upset Codeine GI Upset ACTIVE PROBLEM LIST History of Pulmonary Embolism - 09/22/2023 Pvd (Peripheral Vascular Disease) ([facility]) - 09/22/2023 History of Dvt (Deep Vein Thrombosis) - 09/22/2023 Acute Deep Vein Thrombosis (Dvt) of Proximal Vein of Left Lower Extremity ([facility]) - 07/21/2022 Pulmonary Embolism and Infarction ([facility]) - 03/02/2022 Pulmonary Embolism ([facility]) - 02/13/2022 Hypokalemia - 02/10/2022 Urinary Retention - [address] ([facility]) - 01/28/2022 Rectal Cancer ([facility]) - 01/27/2022 Rectal Malignant Neoplasm ([facility]) - 05/29/2021 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 Bilateral Carotid Artery Stenosis - 04/30/2021 Cervical Radiculopathy - 04/30/2021 Hearing Loss - 04/30/2021 History of Cardiac Catheterization - 04/30/2021 Status Post Coronary Artery Bypass Graft - 04/30/2021 Atherosclerosis of Coronary Artery Bypass Graft - 01/18/2013 Dyslipidemia - 01/16/2013 History of Myocardial Infarction - 08/29/1998 Social History Tobacco Use Smoking status: Former Current packs/day: 0.00 Average packs/day: 1 pack/day for 30.0 years (30.0 ttl pk-yrs) Types: Cigarettes Start date: 01/28/1970 Quit date: 01/29/2000 Years since quittin.8 Smokeless tobacco: Never Vaping Use Vaping status: Never Used Substance Use Topics Alcohol use: Not Currently Comment: rarely Drug use: No Review of Systems Respiratory: Negative. Cardiovascular: Negative. Musculoskeletal: Positive for arthralgias, back pain and myalgias. OBJECTIVE BP 150/72 Pulse 54 Wt 186 lb 15.2 oz (84.8kg) SpO2 99% Physical Exam Vitals and nursing note reviewed. Constitutional: General: He is awake. He is not in acute distress. Appearance: Normal appearance. He is well-developed and well-groomed. He is not ill-appearing, toxic-appearing or diaphoretic. HENT: Head: Normocephalic. Right Ear: External ear normal. Left Ear: External ear normal. Nose: Nose normal. Eyes: General: Vision grossly intact. Conjunctiva/sclera: Conjunctivae normal. Pupils: Pupils are equal, round, and reactive to light. Neck: Vascular: No JVD. Trachea: Trachea normal. Pulmonary: Effort: Pulmonary effort is normal. No accessory muscle usage, prolonged expiration or respiratory distress. Musculoskeletal: Left shoulder: Decreased range of motion. Arms: Cervical back: Neck supple. Skin: General: Skin is warm and dry. Capillary Refill: Capillary refill takes less than 2 seconds. Neurological: General: No focal deficit present. Mental Status: He is alert and oriented to person, place, and time. Mental status is at baseline. Psychiatric: Attention and Perception: Attention and perception normal. Mood and Affect: Mood and affect normal. Speech: Speech normal. Behavior: Behavior normal. Behavior is cooperative. Thought Content: Thought content normal. Cognition and Memory: Cognition and memory normal. Judgment: Judgment normal. ASSESSMENT/PLAN: 1. Chronic left shoulder pain - ICD9: 719.41, 338.29, ICD10: M25.512, G89.[address] Siddiqui with ortho/spine to determine the etiology of his pain. Short term norco script. Call with update. PDMP website checked and validated. All prescriptions have been APPROPRIATELY filled. No suspiciousactivity was identified. 11/30/2023 by Norm Parker APRN.CHELSIE - HYDROCODONE 5 MG-ACETAMINOPHEN 325 MG TABLET Portions of this note have been entered by ancillary staff. I have reviewed and when necessary edited, so that they are an adequate record of my encounter with this patient Please note that parts of this document were created using voice recognition software and therefore may contain grammatical errors. Patient verbalizes understanding of instructions from today's visit and in agreement with treatmentplan. Questions answered. Agrees to call the office if questions, concerns of issues with acute symptoms not improving or if they worsen. See diagnoses and orders for additional plan(s). Allergies and medications were reviewed, list was updated, and refills given if needed. Past medical, surgical, social, and family history reviewed and updated as appropriate. Encouraged proper diet & exercise as well as compliance with taking medications. Age- appropriate health preventative measures were discussed. Return if symptoms worsen or fail to improve. Norm Parker APRN-CHELSIE documented in this encounterSam[facility]09-30-2024 Telephone encounter Note * Telephone Encounter - Coral Charles RN - 11/29/2023 3:50 PM EDT Spoke with patient. Given message from provider's office. Patient verbalizes understanding. Appointment scheduled. Coral Charles RN [facility] Miscellaneous Notes* Telephone Encounter - Coral Charles RN - 11/29/2023 3:50 PM EDT Spoke with patient. Given message from provider's office. Patient verbalizes understanding. Appointment scheduled. Coral Charles RN * Telephone Encounter - Norm Parker APRN.CHELSIE - 11/29/2023 3:36 PM EDT He really needs to be seen for an appointment for pain medication because he is likely going to require something controlled for his pain. * Telephone Encounter - Calista Rehman LPN - 11/29/2023 2:50 PM EDT Patient is calling with left shoulder pain 10/10 pain scale. The pain radiates down from neck to arm, burning throbss and can not sleep.. PATIENT did physcial therapy at [facility] 4 times with norelief. Patient sees spine doctor which recommended a MRI, scheduled for 12/09/23. Patient is requesting pain meds Patient uses [facility] please review and advise. Calista Rehman LPN documented in this encounterSam[facility]09-30-2024 Telephone encounter Note * Telephone Encounter - Norm Parker APRN.CNP - 11/29/2023 3:36 PM EDT He really needs to be seen for an appointment for pain medication because he is likely going to require something controlled for his pain. [facility] Telephone encounter Note* Telephone Encounter - Calista Rehman LPN - 11/29/2023 2:50 PM EDT Patient is calling with left shoulder pain 10/10 pain scale. The pain radiates down from neck to arm, burning throbss and can not sleep.. PATIENT did physcial therapy at [facility] 4 times with ahmet. Patient sees spine doctor which recommended a MRI, scheduled for 12/09/23. Patient is requesting pain meds Patient uses [facility] please review and advise. Calista Rehman LPN [facility]09-10-[facility] Telephone encounter Note* Telephone Encounter - Jenna Sevilla LPN - 11/09/2023 10:13 AM EDT Forms finally went through to fax number provided for [employer]. Patient updated. Jenna Sevilla LPN [facility]09-10[facility] Miscellaneous Notes* Telephone Encounter - Jenna Sevilla LPN - 11/09/2023 10:13 AM EDT Forms finally went through to fax number provided for [employer]. Patient updated. Jenna Sevilla LPN * Telephone Encounter - Jenna Sevilla LPN - 11/05/2023 4:44 PM EDT Refaxed the forms to [phone]. Have attempted to fax the forms to that same number several times and none have gone through. Jenna Sevilla LPN * Telephone Encounter - Cony Raygoza RN - 11/05/2023 3:59 PM EDT Patient calls to report that [facility] has not received any orders/forms at this time. Requesting they be faxed to [phone]. Faxed available order. No forms for this nurse to fax. Cony Raygoza RN * Telephone Encounter - Jenna Sevilla LPN - 10/27/2023 3:23 PM EDT Spoke to staff at [facility], they had faxed another form to us this am. Staff member aware our faxed not going through to them and no faxes received here at the clinic from them. Jenna Sevilla LPN * Telephone Encounter - Jenna eSvilla LPN - 10/27/2023 3:09 PM EDT Order was emailed to [place] due to faxes were not going through. Jenna Sevilla LPN * Telephone Encounter - Fela Church LPN - 10/27/2023 2:23 PM EDT Checking to see if this has been faxed. If it is done please close encounter. Fela Church LPN * Telephone Encounter - Katy Faust MD - 10/22/2023 6:24 PM EDT Noted need for more ostomy supplies since 8 not enough per month. Noted prior orders had been faxed for me to sign. Patient's request for medication is as follows: Requested Prescriptions Signed Prescriptions Disp Refills Miscellaneous Medical Supply 12 Each 11 Sig: Increase monthly supply of ostomy pouches to 12 per month(8 per month not adequate) Authorizing Provider: KATY FAUST Prescription(s) printed as above. Please process accordingly. See MyChart reply documented in this encounterSam[facility]09-09-2024 Telephone encounter Note * Telephone Encounter - Jenna Sevilla LPN - 11/08/2023 12:18 PM EDT Made a copy of the forms and placed in mail. Attempted again to fax to number provided, did not go through. Jenna Sevilla LPN [facility]09-09-[facility] Miscellaneous Notes* Telephone Encounter - Jenna Sevilla LPN - 11/08/2023 12:18 PM EDT Made a copy of the forms and placed in mail. Attempted again to fax to number provided, did not go through. Jenna Sevilla LPN * Telephone Encounter - Whitney Blunt LPN - 10/28/2023 10:54 AM EDT Contacted [facility] again letting them know we have made several attempts to fax orders in the last couple weeks but faxes are not going through, fast busy. [employer] states other faxes are going through and there is not other number to fax to but she did give me a email address of [email or web address] to try. Documentation has been emailed. * Telephone Encounter - Katy Faust MD - 10/27/2023 7:59 PM EDT Let patient known when this issue of RXs getting to [place] has been taken care of documented in this encounterSam[facility]09-06-2024 Telephone encounter Note * Telephone Encounter - Jenna Sevilla LPN - 11/05/2023 4:44 PM EDT Refaxed the forms to [phone]. Have attempted to fax the forms to that same number several times and none have gone through. Jenna Sevilla LPN [facility] Telephone encounter Note* Telephone Encounter - Cony Raygoza RN - 11/05/2023 3:59 PM EDT Patient calls to report that [facility] has not received any orders/forms at this time. Requesting they be faxed to [phone]. Faxed available order. No forms for this nurse to fax. Cony Raygoza, RN [facility]08-29-[facility] Telephone encounter Note* Telephone Encounter - Whitney Blunt LPN - 10/28/2023 10:54 AM EDT Contacted [facility] again letting them know we have made several attempts to fax orders in the last couple weeks but faxes are not going through, fast busy. [employer] states other faxes are going through and there is not other number to fax to but she did give me a email address of [email or web address] to try. Documentation has been emailed. [facility] Telephone encounter Note* Telephone Encounter - Katy Faust MD - 10/27/2023 7:59 PM EDT Let patient known when this issue of RXs getting to [place] has been taken care of [facility] Telephone encounter Note* Telephone Encounter - Jenna Sevilla LPN - 10/27/2023 3:23 PM EDT Spoke to staff at [facility], they had faxed another form to us this am. Staff member aware our faxed not going through to them and no faxes received here at the clinic from them. Jenna Sevilla LPN [facility]-28-[facility] Telephone encounter Note* Telephone Encounter - Jenna Sevilla LPN - 10/27/2023 3:09 PM EDT Order was emailed to [place] due to faxes were not going through. Jenna Sevilla LPN [facility] Telephone encounter Note* Telephone Encounter - Fela Church LPN - 10/27/2023 2:23 PM EDT Checking to see if this has been faxed. If it is done please close encounter. Fela Church LPN [facility]08-[facility] Telephone encounter Note* Telephone Encounter - Katy Faust MD - 10/22/2023 6:24 PM EDT Noted need for more ostomy supplies since 8 not enough per month. Noted prior orders had been faxed for me to sign. Patient's request for medication is as follows: Requested Prescriptions Signed Prescriptions Disp Refills Miscellaneous Medical Supply 12 Each 11 Sig: Increase monthly supply of ostomy pouches to 12 per month(8 per month not adequate) Authorizing Provider: KATY FAUST Prescription(s) printed as above. Please process accordingly. See MyChart reply [facility] Telephone encounter Note* Telephone Encounter - Shaneka Perez - 09/24/2023 10:51 AM EDTSummary: plavix DOS 09/30/2023 received and scanned into chart [facility] Work Phone: [phone] Miscellaneous Notes* Telephone Encounter - Shaneka Perez - 09/24/2023 10:51 AM EDTSummary: plavix DOS 09/30/2023 received and scanned into chart documented in this encounterSamaritan [facility]07-24-2024 History of Present illness Narrative* Parvin Armstrong RN - 09/22/2023 5:50 PM EDT Radiology Service Progress Note DATE OF SERVICE: September 22, 2023 TIME: 5:53 PM PATIENT WEIGHT: 191 LBS PATIENT IDENTITY VERIFICATION COMPLETED USING TWO (2) STANDARD IDENTIFIERS: Name and Date of confirmed by patient verbally and Name and Date of confirmed by identification band. FALL SCREENING: Has the patient had 2 falls in the last year or 1 fall with injury or currently using an Ambulatory Assistive Device (Walker, Cane, Wheelchair, Crutches, etc.)? No PATIENT GENDER DATA: Male ALLERGIES: Reviewed and unchanged CONTRAST ALLERGY: No EXAM: MRI - CONTRAST TYPE: GROUP II IV SITE: Ambulatory: A peripheral IV was started in the Right antecubital site with a Angio cath: 22 gauge. and A Saline lock was inserted per protocol IV SITE APPEARANCE: Clean,Dry and Intact SIGNATURE: Parvin Armstrong RN PATIENT NAME: Jai Luna DATE: September 22, 2023 TIME: 5:53 PM documented in this encounterSamaritan [facility] Center07-24-2024 History and physical note * Linda Daley, NAVNEET.SECURITY SYSTEM INSTALLER - 09/22/2023 2:50 PM EDT Images from the original note were not included. 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 Atherosclerosis of coronary artery bypass graft S/p CABG in 1989 s/p PCI in 2016. On ASA. Most recent ECHO 03/2022, EF 78%. Follows with Cards, stable when last seen 04/2023. History of pulmonary embolism History of PE and DVT provoked in setting of critical illness during hospitalization. Completed oACwith Warfarin 04/2022, advised ok to stop and continue ASA per vascular notes 04/2023. Bilateral carotid artery stenosis Ultrasound of carotid from June 2020 showed left internal and external carotid arteries with 50 to 69% stenosis. Patient denies any symptoms related to TIA or CVA. Follows with Vascular. PVD (peripheral vascular disease) (HCC) Patient s/p left arm angiogram, IVUS aorta, subclavian/axillary, brachial, radial arteries angioplasty and stent of left subclavian artery 07/08/23. Completed by [facility]. [facility] at [facility] on Plavix and ASA. History of DVT (deep vein thrombosis) History of PE and DVT provoked in setting of critical illness during hospitalization. Completed oACwith Warfarin 04/2022, advised ok to stop and continue ASA per vascular notes 04/2023. Rectal cancer (HCC) S/p chemoradiation and ileostomy placement 12/2019. [place] Activity Status Index: METS: Climb a flight of stairs or walk up a hill (5.50 METs) DASI Score: 5.5 Patient denies any chest pain or undue shortness of breath with the above physical activity. STOP-Bang Score: Has or is being treated for high blood pressure Patient over 50 years old Male patient Denies snoring loudly Denies feeling tired, fatigued, or sleepy during the daytime Has not been observed to stop breathing or choking/gasping during sleep BMI less than or equal to 35 kg/m^2 Does not have a large neck STOP-Bang Score: 3 [id number] Score: Hypertension history: Yes Vascular disease history: Yes [id number] Score: ANESTHESIA FINDINGS: Intubation History: No history of difficult intubation. No abnormal airway history Significant Anesthesia Considerations: none Airway History: No history of difficult airway No abnormal airway history I - PHYSICAL EVALUATION AIRWAY Patient intubated: No. Tracheostomy tube not present Mallampati: II. TM distance: >3 FB. Neck ROM: full ROM without neurological symptoms. Mouth opening: adequate. Short neck: no. Thick neck: no Daugherty present: no Lip Bite Test: I Microretrognathia/Micronagthia/Recessed Chin: No DENTAL Normal dental observations. Dental findings: missing tooth/teeth. Dentures, upper: partial. II - ANESTHESIA PLAN Beta Devin Monitoring Plan Post Procedure Analgesic Plan Prepared for Surgery: optimally prepared for surgery, pending [see comment]. LABS, EKG OAC clearance for Plavix faxed to Dr. Reynolds ([facility]) Patient s/p left arm angiogram, IVUS aorta, subclavian/axillary, brachial, radial arteries angioplasty and stent of left subclavian artery 07/08/23. CONSULTS: The following consults have been initiated at this time: vascular medicine. Planned Anesthetic: The Following Tests/Procedures Have Been Initiated: No orders of the defined types were placed in this encounter. REASON FOR VISIT: Jai Luna is a 73 year old male who is scheduled for Procedure(s): EXAM UNDER ANESTHESIA RECTAL (N/A) SIGMOIDOSCOPY FLEXIBLE WITH BIOPSY (N/A) at the request of Ramiro Zhang MD for consultation.My final recommendation will be communicated back to the requesting physician by way of shared medical record or letter. Subjective The patient has the following: ACTIVE PROBLEM LIST Acoustic Neuroma (Hcc) Atherosclerosis of Coronary Artery Bypass Graft Bilateral Carotid Artery Stenosis Cervical Radiculopathy Dyslipidemia Hearing Loss History of Cardiac Catheterization History of Myocardial Infarction Status Post Coronary Artery Bypass Graft Rectal Malignant Neoplasm (Hcc) Rectal Cancer (Hcc) Ileostomy in Place (Hcc) Urinary Retention Hypokalemia Pulmonary Embolism (Hcc) Pulmonary Embolism and Infarction (Hcc) Acute Deep Vein Thrombosis (Dvt) of Proximal Vein of Left Lower Extremity (Hcc) History of Pulmonary Embolism Pvd (Peripheral Vascular Disease) (Hcc) History of Dvt (Deep Vein Thrombosis) COVID-19 Immunization Status Overdue - Covid-19 Vaccine ( season) Never done 04/22/2022 Postponed until 04/22/2023 by Katy Faust MD (Declined at this time) CHIEF COMPLAINT: Preoperative Examination HPI: 73 year old male patient present today with rectal cancer. Patient with hx of stage 3 SCC of rectum s/p chemoradiation, s/p robotic laparoscopic lower quadrant resection with colorectal anastomosis and diversion loop ileostomy 12/2019. Patient had an EUA and colonoscopy with Dr Cheung on 06/04/22 that showed a 50% dehiscence of the anastomosis posteriorly. He had an OV with Dr Muñiz ([facility]) on 07/14/23 for rectal bleeding and it was recommended that he see Dr Cheung again to assess as to the source of the bleeding. He had a VV with Dr Cheung on 07/28/23 and it was recommended that he have an EUA with flex sig. He experiences rectal stabbing pain that travels into the penis. As next step in treatment the above procedure is recommended. Patient is agreeable and would like to proceed. REVIEW OF SYSTEMS: General: No weight loss, malaise or fevers. Neurological: No history of TIA's, stroke, FUEL AGENT tumor, impaired sensorium, hemiplegia, paraplegia orquadraplegia. No neurological symptoms or problems. Respiratory: No history of current cough or dyspnea, or pneumonia in the past 6 weeks. No history of respiratory/pulmonary symptoms or problems. Cardiovascular: + Bilateral carotid artery stenosis Positive for: anticoagulation therapy, CAD, DVT/PE, hyperlipidemia, hypertension, PTCA, open heart surgery and PVD Negative for: abdominal aortic aneurysm, AICD/PPM, angina, arrhythmia, atrial fibrillation, chest pain, CHF, congenital heart defect, recent NM and murmur/valvular heart disease. GI: See HPI. : No history of dysuria, frequency or incontinence, stones or chronic kidney disease. No difficulty urinating, nocturia > 1 time per night or hematuria. Endocrine: No history of diabetes. Has not taken steroids within the past 30 days. No history of endocrinological symptoms or problems. Hematology: Positive for: chronic anti-coagulation/platelet meds. Patient is on anti- coagulation/platelet medication(s): Aspirin. Negative for: anemia, bruises/bleeds easily, factor V Leiden, hemophilia, thrombocytopenia and von Willebrand disease. Oncology: See HPI. Psych: No history of psychiatric symptoms or problems. Musculoskeletal: Negative for joint pain or swelling, back pain or muscle pain. Skin: Negative for lesions, rash and itching. 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 coronary artery bypass graft 01/18/2013 Bilateral carotid artery stenosis 04/30/2021 Coronary atherosclerosis of unspecified type of vessel, [place] or graft Coronary artery disease Diverticulosis of colon (without mention of hemorrhage) Dyslipidemia 01/16/2013 History of transfusion Hypertension Rectal malignant neoplasm (HCC) 05/29/2021 Rectal mass PAST SURGICAL HISTORY Procedure Laterality Date COLONOSCOPY 03/20/2021 COLONOSCOPY FLX DX W/COLLJ SPEC WHEN PFRMD 08/24/2007 Colonoscopy CORONARY ARTERY BYP W/VEIN & ARTERY GRAFT 3 VEIN 03/01/1994 CABG, three grafts EYE SURGERY HX HEART SURGERY HX PAST SURGICAL HISTORY OF subclavian/axillary, brachial, radial arteries angioplasty stent left subclavian artery subclavian/axillary, brachial, radial arteries angioplasty stent left subclavian artery 07/23/23 PERC TRANSL COR ANGIO 10/31/2003 Percutaneous Transluminal Coronary Angio Status PROSTATE SURGERY HX STRABISMUS RECESSION/RESCJ 1 [facility] Strabismus surgery TONSILLECTOMY HX TONSILLECTOMY PRIMARY/SECONDARY Tonsillectomy VASCULAR SURGERY PROCEDURE FAMILY HISTORY Problem Relation Age of Onset Heart Father Emphysema Mother Emphysema Sister Anesthesia Problems No Family History Social History Tobacco Use Smoking status: Former Packs/day: 1.00 Years: 30.00 Additional pack years: 0.00 Total pack years: 30.00 Types: Cigarettes Quit date: 01/29/2000 Years since quittin.6 Smokeless tobacco: Never Vaping Use Vaping Use: Never used Substance Use Topics Alcohol use: Not Currently Comment: rarely Drug use: No Prior to Admission medications as of 09/22/23 1331 Medication Sig Last Dose Taking clopidogrel (PLAVIX) 75 mg tablet Take 75 mg by mouth. Taking Yes Magnesium 250 mg tab Take 250 mg by mouth once daily. Taking Yes multivitamin tablet Take 1 tablet by mouth once daily. Taking Yes aspirin, enteric coated (ADULT LOW DOSE ASPIRIN) 81 mg EC tablet Take 1 tablet by mouth once daily.Taking Yes coenzyme Q10 (COENZYME Q-10) 100 mg cap capsule Take 100 mg by mouth once daily. Taking Yes Cholecalciferol, Vitamin D3, 50 mcg (2,000 unit) cap Take 1 capsule by mouth two times a week. Taking Yes No medication comments found. ALLERGIES Allergen Reactions Cat Dander Other: See Comments Clindamycin GI Upset Codeine GI Upset Objective PHYSICAL EXAM: General: alert and oriented and healthy appearance. Pertinent negatives noted - not distressed. Skin: normal color, no rash or lesions. HEENT: EOM intact, pupils equal round, pupils reactive to light and carotid bruit. Pertinent negatives noted - no cervical lymphadenopathy. Carotid bruit; laterality left. No additional findings for patient's eyes, ears, nose, throat or neck. Cardiovascular: regular rate and rhythm, normal S1 and S2, no rub, murmurs, or gallop. Respiratory: normal breath sounds, no wheezes or crackles. No chest wall deformity or tenderness. Abdomen: bowel sounds present and soft. Pertinent negatives noted - not tender. Extremities: no deformity, no edema or tenderness, no joint swelling or clubbing. Neurological: normal cognition and motor skills. Gait normal. No weakness or sensory deficit. PAIN ASSESSMENT: Pain Pain Level: 10 Pain Location: Rectum Description: Stabbing Duration Amount of Time: 2 Duration Units: Years Frequency: Intermittent Intervention/Comfort measure: Declined VITALS: BP 145/76 Pulse 66 Temp (Src) 97.8 (Temporal) Resp 18 Ht 5' 6" (1.68m) Wt 191 lb 5.8 oz (86.8kg) SpO2 97% BMI 30.90 kg/(m^2). Diagnostic tests reviewed for today's visit: Lab Value Units Date High Low HB 13.3 g/dL 09/22/2023 17.0 13.0 HCT 40.6 % 09/22/2023 51.0 39.0 WBC 6.04 k/uL 09/22/2023 11.00 3.70 PLT 235 k/uL 09/22/2023 400 150 NA No results within date range. K No results within date range. GLUC No results within date range. BUN No results within date range. CREAT No results within date range. PTSEC No results within date range. INR 2.1 no uni* 04/27/2023 1.2 0.8 APTT No results within date range. ALT No results within date range. AST No results within date range. TBILI No results within date range. TSH No results within date range. Lab Value Units Date High Low HCGQT No results within date range. UHCG No results within date range. HCG, BODY* No results within date range. Lab Value Units Date High Low ABORHD No results within date range. ABSCREEN No results within date range. No results found for: "HBA1C" Recent Results (from the past 8760 hour(s)) ECG COMPLETE Collection Time: 09/22/23 1:14 PM Result Value Ventricular Rate 66 Atrial Rate 66 P-R Interval 176 QRS Duration 118 QT Interval 426 QTC Calculation (Bazett) 446 Calculated P Hill 2 Calculated R Hill 16 Calculated T Hill 35 Impression NORMAL SINUS RHYTHM COMPLETE RIGHT BUNDLE BRANCH BLOCK ABNORMAL ECG Recent Results (from the past 88513 hour(s)) ECHO Collection Time: 03/03/22 4:24 PM Impression CONCLUSIONS: - Technically difficult exam due to body habitus. - Exam indication: Limited for Pulmonary Embolism - The left ventricle is small. Left ventricular systolic function is hyperdynamic. EF = 73 5% (2D 4-ch.) There is a small midcavitary gradient measuring 16 mmHg. - The right ventricle is normal in size. Right ventricular systolic function is normal. RV poorly seen but appears grossly normal in limited views. - Similar hypoechoic lesion noted in liver - Exam was compared with the prior echocardiographic exam performed on 02/13/2022. Grossly similar with limited views. * * * Final * * * Instructions Given to Patient: Instructions located in the after visit summary. Patient given verbal and written preop instructions and voices comprehension and compliance. SIGNATURE: Linda Daley APRN.CNP PATIENT NAME: Jai Luna DATE: September 21, 2023 TIME: 9:05 PM PAGER/CONTACT #: [email or web address] History and physical note* Linda Daley APRN.CNP - 09/22/2023 2:50 PM EDT Images from the original note were not included. 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 Atherosclerosis of coronary artery bypass graft S/p CABG in 1989 s/p PCI in 2016. On ASA. Most recent ECHO 03/2022, EF 78%. Follows with Cards, stable when last seen 04/2023. History of pulmonary embolism History of PE and DVT provoked in setting of critical illness during hospitalization. Completed oACwith Warfarin 04/2022, advised ok to stop and continue ASA per vascular notes 04/2023. Bilateral carotid artery stenosis Ultrasound of carotid from June 2020 showed left internal and external carotid arteries with 50 to 69% stenosis. Patient denies any symptoms related to TIA or CVA. Follows with Vascular. PVD (peripheral vascular disease) ([facility]) Patient s/p left arm angiogram, IVUS aorta, subclavian/axillary, brachial, radial arteries angioplasty and stent of left subclavian artery 07/08/23. Completed by [facility]. Reynolds at [facility] on Plavix and ASA. History of DVT (deep vein thrombosis) History of PE and DVT provoked in setting of critical illness during hospitalization. Completed oACwith Warfarin 04/2022, advised ok to stop and continue ASA per vascular notes 04/2023. Rectal cancer (HCC) S/p chemoradiation and ileostomy placement 12/2019. [place] Activity Status Index: METS: Climb a flight of stairs or walk up a hill (5.50 METs) DASI Score: 5.5 Patient denies any chest pain or undue shortness of breath with the above physical activity. STOP-Bang Score: Has or is being treated for high blood pressure Patient over 50 years old Male patient Denies snoring loudly Denies feeling tired, fatigued, or sleepy during the daytime Has not been observed to stop breathing or choking/gasping during sleep BMI less than or equal to 35 kg/m^2 Does not have a large neck STOP-Bang Score: 3 [id number] Score: Hypertension history: Yes Vascular disease history: Yes [id number] Score: ANESTHESIA FINDINGS: Intubation History: No history of difficult intubation. No abnormal airway history Significant Anesthesia Considerations: none Airway History: No history of difficult airway No abnormal airway history I - PHYSICAL EVALUATION AIRWAY Patient intubated: No. Tracheostomy tube not present Mallampati: II. TM distance: >3 FB. Neck ROM: full ROM without neurological symptoms. Mouth opening: adequate. Short neck: no. Thick neck: no Daugherty present: no Lip Bite Test: I Microretrognathia/Micronagthia/Recessed Chin: No DENTAL Normal dental observations. Dental findings: missing tooth/teeth. Dentures, upper: partial. II - ANESTHESIA PLAN Beta Devin Monitoring Plan Post Procedure Analgesic Plan Prepared for Surgery: optimally prepared for surgery, pending [see comment]. LABS, EKG OAC clearance for Plavix faxed to Dr. Reynolds ([facility]) Patient s/p left arm angiogram, IVUS aorta, subclavian/axillary, brachial, radial arteries angioplasty and stent of left subclavian artery 07/08/23. CONSULTS: The following consults have been initiated at this time: vascular medicine. Planned Anesthetic: The Following Tests/Procedures Have Been Initiated: No orders of the defined types were placed in this encounter. REASON FOR VISIT: Jai Luna is a 73 year old male who is scheduled for Procedure(s): EXAM UNDER ANESTHESIA RECTAL (N/A) SIGMOIDOSCOPY FLEXIBLE WITH BIOPSY (N/A) at the request of Ramiro Zhang MD for consultation.My final recommendation will be communicated back to the requesting physician by way of shared medical record or letter. Subjective The patient has the following: ACTIVE PROBLEM LIST Acoustic Neuroma (Hcc) Atherosclerosis of Coronary Artery Bypass Graft Bilateral Carotid Artery Stenosis Cervical Radiculopathy Dyslipidemia Hearing Loss History of Cardiac Catheterization History of Myocardial Infarction Status Post Coronary Artery Bypass Graft Rectal Malignant Neoplasm (Hcc) Rectal Cancer (Hcc) Ileostomy in Place (Hcc) Urinary Retention Hypokalemia Pulmonary Embolism (Hcc) Pulmonary Embolism and Infarction (Hcc) Acute Deep Vein Thrombosis (Dvt) of Proximal Vein of Left Lower Extremity (Hcc) History of Pulmonary Embolism Pvd (Peripheral Vascular Disease) (Hcc) History of Dvt (Deep Vein Thrombosis) COVID-19 Immunization Status Overdue - Covid-19 Vaccine () Never done 04/22/2022 Postponed until 04/22/2023 by Katy Faust MD (Declined at this time) CHIEF COMPLAINT: Preoperative Examination HPI: 73 year old male patient present today with rectal cancer. Patient with hx of stage 3 SCC of rectum s/p chemoradiation, s/p robotic laparoscopic lower quadrant resection with colorectal anastomosis and diversion loop ileostomy 12/2019. Patient had an EUA and colonoscopy with Dr Cheung on 06/04/22 that showed a 50% dehiscence of the anastomosis posteriorly. He had an OV with Dr Muñiz ([facility]) on 07/14/23 for rectal bleeding and it was recommended that he see Dr Cheung again to assess as to the source of the bleeding. He had a VV with Dr Cheung on 07/28/23 and it was recommended that he have an EUA with flex sig. He experiences rectal stabbing pain that travels into the penis. As next step in treatment the above procedure is recommended. Patient is agreeable and would like to proceed. REVIEW OF SYSTEMS: General: No weight loss, malaise or fevers. Neurological: No history of TIA's, stroke, FUEL AGENT tumor, impaired sensorium, hemiplegia, paraplegia orquadraplegia. No neurological symptoms or problems. Respiratory: No history of current cough or dyspnea, or pneumonia in the past 6 weeks. No history of respiratory/pulmonary symptoms or problems. Cardiovascular: + Bilateral carotid artery stenosis Positive for: anticoagulation therapy, CAD, DVT/PE, hyperlipidemia, hypertension, PTCA, open heart surgery and PVD Negative for: abdominal aortic aneurysm, AICD/PPM, angina, arrhythmia, atrial fibrillation, chest pain, CHF, congenital heart defect, recent NM and murmur/valvular heart disease. GI: See HPI. : No history of dysuria, frequency or incontinence, stones or chronic kidney disease. No difficulty urinating, nocturia > 1 time per night or hematuria. Endocrine: No history of diabetes. Has not taken steroids within the past 30 days. No history of endocrinological symptoms or problems. Hematology: Positive for: chronic anti-coagulation/platelet meds. Patient is on anti- coagulation/platelet medication(s): Aspirin. Negative for: anemia, bruises/bleeds easily, factor V Leiden, hemophilia, thrombocytopenia and von Willebrand disease. Oncology: See HPI. Psych: No history of psychiatric symptoms or problems. Musculoskeletal: Negative for joint pain or swelling, back pain or muscle pain. Skin: Negative for lesions, rash and itching. 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 coronary artery bypass graft 01/18/2013 Bilateral carotid artery stenosis 04/30/2021 Coronary atherosclerosis of unspecified type of vessel, [place] or graft Coronary artery disease Diverticulosis of colon (without mention of hemorrhage) Dyslipidemia 01/16/2013 History of transfusion Hypertension Rectal malignant neoplasm (HCC) 05/29/2021 Rectal mass PAST SURGICAL HISTORY Procedure Laterality Date COLONOSCOPY 03/20/2021 COLONOSCOPY FLX DX W/COLLJ SPEC WHEN PFRMD 08/24/2007 Colonoscopy CORONARY ARTERY BYP W/VEIN & ARTERY GRAFT 3 VEIN 03/01/1994 CABG, three grafts EYE SURGERY HX HEART SURGERY HX PAST SURGICAL HISTORY OF subclavian/axillary, brachial, radial arteries angioplasty stent left subclavian artery subclavian/axillary, brachial, radial arteries angioplasty stent left subclavian artery 07/23/23 PERC TRANSL COR ANGIO 10/31/2003 Percutaneous Transluminal Coronary Angio Status PROSTATE SURGERY HX STRABISMUS RECESSION/RESCJ 1 [facility] Strabismus surgery TONSILLECTOMY HX TONSILLECTOMY PRIMARY/SECONDARY <AGE 12 Tonsillectomy VASCULAR SURGERY PROCEDURE FAMILY HISTORY Problem Relation Age of Onset Heart Father Emphysema Mother Emphysema Sister Anesthesia Problems No Family History Social History Tobacco Use Smoking status: Former Packs/day: 1.00 Years: 30.00 Additional pack years: 0.00 Total pack years: 30.00 Types: Cigarettes Quit date: 01/29/2000 Years since quittin.6 Smokeless tobacco: Never Vaping Use Vaping Use: Never used Substance Use Topics Alcohol use: Not Currently Comment: rarely Drug use: No Prior to Admission medications as of 09/22/23 1331 Medication Sig Last Dose Taking clopidogrel (PLAVIX) 75 mg tablet Take 75 mg by mouth. Taking Yes Magnesium 250 mg tab Take 250 mg by mouth once daily. Taking Yes multivitamin tablet Take 1 tablet by mouth once daily. Taking Yes aspirin, enteric coated (ADULT LOW DOSE ASPIRIN) 81 mg EC tablet Take 1 tablet by mouth once daily.Taking Yes coenzyme Q10 (COENZYME Q-10) 100 mg cap capsule Take 100 mg by mouth once daily. Taking Yes Cholecalciferol, Vitamin D3, 50 mcg (2,000 unit) cap Take 1 capsule by mouth two times a week. Taking Yes No medication comments found. ALLERGIES Allergen Reactions Cat Dander Other: See Comments Clindamycin GI Upset Codeine GI Upset Objective PHYSICAL EXAM: General: alert and oriented and healthy appearance. Pertinent negatives noted - not distressed. Skin: normal color, no rash or lesions. HEENT: EOM intact, pupils equal round, pupils reactive to light and carotid bruit. Pertinent negatives noted - no cervical lymphadenopathy. Carotid bruit; laterality left. No additional findings for patient's eyes, ears, nose, throat or neck. Cardiovascular: regular rate and rhythm, normal S1 and S2, no rub, murmurs, or gallop. Respiratory: normal breath sounds, no wheezes or crackles. No chest wall deformity or tenderness. Abdomen: bowel sounds present and soft. Pertinent negatives noted - not tender. Extremities: no deformity, no edema or tenderness, no joint swelling or clubbing. Neurological: normal cognition and motor skills. Gait normal. No weakness or sensory deficit. PAIN ASSESSMENT: Pain Pain Level: 10 Pain Location: Rectum Description: Stabbing Duration Amount of Time: 2 Duration Units: Years Frequency: Intermittent Intervention/Comfort measure: Declined VITALS: BP 145/76 Pulse 66 Temp (Src) 97.8 (Temporal) Resp 18 Ht 5' 6" (1.68m) Wt 191 lb 5.8 oz (86.8kg) SpO2 97% BMI 30.90 kg/(m^2). Diagnostic tests reviewed for today's visit: Lab Value Units Date High Low HB 13.3 g/dL 09/22/2023 17.0 13.0 HCT 40.6 % 09/22/2023 51.0 39.0 WBC 6.04 k/uL 09/22/2023 11.00 3.70 PLT 235 k/uL 09/22/2023 400 150 NA No results within date range. K No results within date range. GLUC No results within date range. BUN No results within date range. CREAT No results within date range. PTSEC No results within date range. INR 2.1 no uni* 04/27/2023 1.2 0.8 APTT No results within date range. ALT No results within date range. AST No results within date range. TBILI No results within date range. TSH No results within date range. Lab Value Units Date High Low HCGQT No results within date range. UHCG No results within date range. HCG, BODY* No results within date range. Lab Value Units Date High Low ABORHD No results within date range. ABSCREEN No results within date range. No results found for: "HBA1C" Recent Results (from the past 8760 hour(s)) ECG COMPLETE Collection Time: 09/22/23 1:14 PM Result Value Ventricular Rate 66 Atrial Rate 66 P-R Interval 176 QRS Duration 118 QT Interval 426 QTC Calculation (Bazett) 446 Calculated P Hill 2 Calculated R Hill 16 Calculated T Hill 35 Impression NORMAL SINUS RHYTHM COMPLETE RIGHT BUNDLE BRANCH BLOCK ABNORMAL ECG Recent Results (from the past 75938 hour(s)) ECHO Collection Time: 03/03/22 4:24 PM Impression CONCLUSIONS: - Technically difficult exam due to body habitus. - Exam indication: Limited for Pulmonary Embolism - The left ventricle is small. Left ventricular systolic function is hyperdynamic. EF = 73 5% (2D 4-ch.) There is a small midcavitary gradient measuring 16 mmHg. - The right ventricle is normal in size. Right ventricular systolic function is normal. RV poorly seen but appears grossly normal in limited views. - Similar hypoechoic lesion noted in liver - Exam was compared with the prior echocardiographic exam performed on 02/13/2022. Grossly similar with limited views. * * * Final * * * Instructions Given to Patient: Instructions located in the after visit summary. Patient given verbal and written preop instructions and voices comprehension and compliance. SIGNATURE: Linda Daley APRN.CNP PATIENT NAME: Jai Luna DATE: September 21, 2023 TIME: 9:05 PM PAGER/CONTACT #: [facility] Instructions* Patient Instructions* Linda Daley APRN.CNP - 09/22/2023 1:53 PM EDT Images from the original note were not included. [place] [facility] Per[facility] Pre-Anesthesia Consultation [facility] PATIENT PREOPERATIVE INSTRUCTIONS Ramiro Cheung MD has scheduled you for your procedure at this surgery center: [facility] Scheduling Office: [phone] --[address] [place] [address]. Please read below carefully for your personalized instructions. Dietary Restrictions: - No solid food after midnight. - You may have 12 ounces of clear liquids (water, clear juices such as apple juice or gatorade, carbonated beverages, clear tea, black coffee, jello) until 2 hours before scheduled arrival at facility. Medications: Unless instructed differently below, stay on all of your medications until your surgery. If you start any new medications after today's visit, please contact your surgeon. Pre-Surgery Med Instructions Medication Instructions Magnesium 250 mg tab Stop 14 days before surgery multivitamin tablet Stop 14 days before surgery aspirin, enteric coated (ADULT LOW DOSE ASPIRIN) 81 mg EC tablet Take the day of surgery with a small sip of water coenzyme Q10 (COENZYME Q-10) 100 mg cap capsule Stop 14 days before surgery Cholecalciferol, Vitamin D3, 50 mcg (2,000 unit) cap Stop 14 days before surgery If you start any new medications after today's visit, please contact the surgeon's office. Blood Thinning Medications: - Stop NSAIDS (Ibuprofen, Advil, Aleve, Motrin, Celebrex, Mobic, etc.) 7 days before surgery, as directed by your surgeon. - Do NOT stop aspirin or other anticoagulants without consulting with your trading specialist or prescribing physician. - Stop Vitamin E, ALL multi-vitamins, herbals and dietary supplements 14 days before surgery. - You may take Tylenol (Acetaminophen) or any of your pain medications that do not contain aspirin or NSAIDS as needed. Important Reminders: - Candy, mints, and tobacco products are NOT permitted the morning of surgery. - Hearing aids, dentures and glasses may be worn the morning of surgery. - NO jewelry, body piercings, makeup, hairpins or contacts are to be worn the day of surgery. If you develop symptoms such as a fever, cold, or flu, or have other changes to your health within TWO DAYS of scheduled surgery or the morning of surgery, please contact the surgery center above. Personal Belongings: -Please have photo ID and insurance cards. -If you do not have a copy of advance directives on file with us, please bring a copy with you on the day of surgery. - Leave ALL valuables and money at home or with family members. For Outpatient Procedures: - YOU MUST HAVE A RESPONSIBLE REGULATORY SUBMISSIONS SPECIALIST TAKE YOU HOME. A ROLLER MECHANIC OR PLASTIC DESIGN APPLIER CANNOT BE MADE A RESPONSIBLE REGULATORY SUBMISSIONS SPECIALIST. - We recommend that a responsible person stays with you overnight to take care of you. - You cannot stay in a hotel alone after outpatient surgery. You will not be permitted to have yoursurgery, if you do not have someone to take care of you. Arrival Time for Surgery: - To obtain your arrival time for surgery, call your physician's office the day before your surgery. - If your surgery is scheduled for Wednesday, call the Wednesday before. Your surgeon s vibrator operator will tell you what time to call the office. - If you have not reached the departmental vibrator operator by 5 P.M., call [phone] after 5 P.M. the day before your surgery. Please be aware that emergency situations arise, which may delay or change your surgical time. If this happens, we will notify you as soon as possible and regret any inconvenience. If you already have an Advance Directive, please fax a copy to [phone] or email to for it to be added to your chart. If you do not have an Advance Directive, you can find the appropriate form and more information at [email or web address]. We recommend that youcomplete the Advance Directive form found on the website and bring it with you the day of your surgery. It can be witnessed and scanned into your chart that day. [facility] History and physical note * Ramiro Cheung MD - 09/22/2023 10:40 AM EDT COLON AND RECTAL HISTORY AND PHYSICAL EXAMINATION SERVICE DATE: 09/16/2023 Primary Care Physician: Katy Faust MD Chief complaint: recurrent rectal bleeding (Hx Rectal CA) HPI: Jai Luna is a 73-year-old male referred by Dr Muñiz for the surgical evaluation of his recurrent rectal bleeding s/p Rx LAR d/t rectal cancer in 2021. He had an EUA and colonoscopy with Dr South 06/04/22 that showed a 50% dehiscence of the anastomosis posteriorly. He had an OV with Dr Muñiz ([facility]) on 07/14/23 for rectal bleeding and it was recommended that he see Dr Cheung again to assess as to the source of the bleeding. He had a VV with Dr Cheung on 07/28/23 and it was recommendedthat he have an EUA with flex sig. He is here today for his preop appt for his EUA and flex sig on 09/30/23. Hx: rectal CA, stricture at anastomosis site 07/28/2023 VV with EG Treatment plan: EUA in the OR with flexible sigmoidoscopy 07/14/[address] Muñiz ([facility]) - Recommendation is to identify the source of your rectal bleeding - Follow-up with Urology to evaluate for a fistula connection to the urethra - Further surgical intervention is recommended to be pursued with Dr. Cheung or through the [facility] given the complexity of your case. Further work-up prior to surgery should be performed through the [facility] as any further surgical intervention would be recommended through this institution. 06/04/2022 s/p Examination under general anesthesia to the anorectal area, Flexible sigmoidoscopy, and Drainage of the presacral space collection. OPERATIVE FINDINGS: 50% dehiscence of the coloanal anastomosis with presacral space fluid collection that was drained. We did not identify the true lumen of the proximal colonic conduit. The anal canal looks normal with minimal radiation, change it to the anal canal itself. Findings: ? ? Rectal cancer treatment scar observed in the posterior position. ?? ? Remains complete endoscopic response with no signs of recurrence. ?? ? The perianal exam findings include scar noted proximal to the ?? ? coloanal anstomosis. ?? ? There is posterior dehiscence of the coloanal anastomosis. Impression: ?- Scar noted proximal to the coloanal anstomosis ? with posterior dehiscence. ? - No specimens collected. 01/27/2022 s/p robotic laparoscopic low anterior resection with colorectal anastomosis (EEA 31) with intraoperative angiogram (firefly) with diverting loop ileostomy and flexible sigmoidoscopy (negative leak test) OPERATIVE FINDINGS: Hepatic cyst on the right lower lobe, fibrosis and radiation changes in the mesorectum, narrow pelvis. Dissection carried down to the pelvic floor. Stapled coloanal anastomosis with EEA #31 and donuts intact and intact hemostatic staple line visualized on flexible sigmoidoscopy.Negative leak test and diverting loop ileostomy. 01/27/2022 pathology FINAL DIAGNOSIS A-B. Sigmoid colon and rectum, low anterior resection: - No residual/recurrent cancer (see synoptic). - No tumor in twelve lymph nodes (0/12) TUMOR Tumor Site Cannot be determined: no residual cancer Histologic Type no residual cancer Histologic Grade Not applicable Tumor Size Cannot be determined: no residual cancer Tumor Extent No evidence of primary tumor Macroscopic Tumor Perforation Not identified Lymphovascular Invasion Not identified Perineural Invasion Not identified Treatment Effect Present, with no viable cancer cells (complete response, score 0) MARGINS Margin Status for Invasive Carcinoma All margins negative for invasive carcinoma Margin Status for Non-Invasive Tumor All margins negative for high-grade dysplasia / intramucosal carcinoma and low-grade dysplasia REGIONAL LYMPH NODES Regional Lymph Node Status All regional lymph nodes negative for tumor Number of Lymph Nodes Examined 12 Tumor Deposits Not identified PATHOLOGIC STAGE CLASSIFICATION (pTNM, AJCC 8th Edition) Reporting of pT, pN, and (when applicable) pM categories is based on information available to the pathologist at the time the report is issued. As per the AJCC (Chapter 1, 8th Ed.) it is the managingphysician s responsibility to establish the final pathologic stage based upon all pertinent information, including but potentially not limited to this pathology report. TNM Descriptors y (post-treatment) pT Category pT0 pN Category pN0 05/06/2021 s/p Exam under anesthesia with flexible sigmoidoscopy (it is a firm fixed mass in the mid rectum submucosally and retroperitoneally located. This was Danielle-Cut biopsied, frozen section sent toPathology. 05/06/2021 pathology FINAL DIAGNOSIS A. Rectum, mass, biopsy: - At least high-grade squamous intraepithelial lesion (HSIL), with focal features suspicious for invasion (see comment). B. Rectum, mass, danielle-cut biopsy #1: - Invasive moderately differentiated squamous cell carcinoma (see comment). C. Rectum, mass, danielle-cut biopsy #2: - Invasive moderately differentiated squamous cell carcinoma (see comment). D. Rectum, mass, danielle-cut biopsy #3: - Invasive moderately differentiated squamous cell carcinoma (see comment). 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 Multiple deeper levels were examined on selected blocks. 03/20/2021 colonoscopy Findings: ? ? A frond-like/villous partially obstructing large mass was found in ?? ? the rectum. The mass was non-circumferential. In addition, its ?? ? diameter measured three mm. No bleeding was present. Biopsies were ?? ? taken with a cold forceps for histology. ?? ? A 15 mm polyp was found in the cecum. The polyp was carpet-like. The ?? ? polyp was removed with a cold snare. Resection and retrieval were ?? ? complete. ?? ? The exam was otherwise without abnormality. Impression: ? - Likely malignant partially obstructing tumor in ?the rectum. Biopsied. Patient will require a CT scan ?of the abdomen and pelvis with IV and p.o. contrast ?- One 15 mm polyp in the cecum,This was biopsied ?with cold biopsies. . This was a cluster of polyps ?that likely represent a villous adenoma. They are ?going to require saline lift technique to be ?removed.. ?- The examination was otherwise normal. 03/20/2021 pathology FINAL DIAGNOSIS 1. Cecal polyp, biopsy (A) - Tubular adenoma. 2. Rectal mass, biopsy (B) - Submucosa with chronic inflammation, histiocytes, and rare atypical cells, not diagnostic. See comment. COMMENT The mucosa of this biopsy is essentially normal. However, within the submucosa, there is an admixture of lymphocytes, histiocytes, and rare atypical cells of uncertain significance. Immunohistochemical stains reveal that some of the cells appear to stain for cytokeratin AE1/AE3, raising strong consideration that these could be epithelial in nature. An immunostain for CAM5.2 is less definitive. The cells do not stain for S-100 protein, and many of the cells stain for CD68, but these are consistent with nonneoplastic histiocytes. Thus, although this is?worrisome for an underlying carcinoma, this biopsy is not felt to be diagnostic. Physical Exam: There were no vitals taken for this visit. General: Alert and oriented Skin: Normal color, no rash, no lesions. HEENT: EOM, pupils equal, round and reactive. Cardiovascular: Normal S1 & S2, no rubs, murmurs or gallops. No JVD. Pulse regular. Lungs: Normal breath sounds, no wheezes or crackles. Abdomen: Soft, non-tender, no rigidity. Extremities: No deformity, no edema or tenderness, no joint swelling or clubbing. Neurological: Normal cognition and motor skills. Pulses: Carotid and radial pulses normal +2. Assessment Medical Decision Making: Assessment & Diagnosis: Jai Luna is a 73 year old male s/p robotic LAR with chronic leak, s/p EUA with presacral fluid drainage 05/2022 with ongoing rectal mucus drainage and bleeding. Planned for EUA and flex sig. Pelvic MRI scheduled today in the evening. There is no known pertinent medical condition which may affect allison-operative course Data Reviewed: Tests & Documents Reviewed/[facility]: [facility] I have independently interpreted: CT Abdomen, CT Pelvis, MRI Pelvis I have discussed Jai Luna's treatment plan and/or results with patient. Treatment plan: I have reviewed with the patient their current symptoms, changes since our last visit, the above listed documents and physical exam. Based on this, the following surgery is planned: EUA. The risks, benefits and anticipated outcomes of the procedure, the risks and benefits of the alternatives to the procedure and the roles and tasks of the personnel to be involved were discussed with the patient and the patient consents to the procedure and agrees to proceed. Informed consent has been obtained. The following details surrounding surgery were discussed: Preoperative prep: No Bowel Prep; Clear liquids day before and Fleet Enema's x2 Length of hospital stay: OP Anticipated diet at time of discharge from the hospital: Regular Anticipated activity restrictions at time of discharge from the hospital: Resume normal activities with no lifting or pounding exercises. Prior to surgery, the following consults have been requested: Anesthesia, [facility] Nurse Pre-op, and Pre-op Clinic Prior to surgery, the following lab tests have been ordered: EKG, CBC, CMP, Type & Screen, Con ABO Ramiro Cheung MD Additional counseling: Patient given verbal and written preop instructions and voices comprehension and compliance. Risk of morbidity, mortality and/or complications of treatment plan: low [facility]07-24-2024 History and physical note* Ramiro Cheung MD - 09/22/2023 10:40 AM EDT COLON AND RECTAL HISTORY AND PHYSICAL EXAMINATION SERVICE DATE: 09/16/2023 Primary Care Physician: Katy Faust MD Chief complaint: recurrent rectal bleeding (Hx Rectal CA) HPI: Jai Luna is a 73-year-old male referred by Dr Muñiz for the surgical evaluation of his recurrent rectal bleeding s/p Rx LAR d/t rectal cancer in 2021. He had an EUA and colonoscopy with Dr South 06/04/22 that showed a 50% dehiscence of the anastomosis posteriorly. He had an OV with Dr Muñiz ([facility]) on 07/14/23 for rectal bleeding and it was recommended that he see Dr Cheung again to assess as to the source of the bleeding. He had a VV with Dr Cheung on 07/28/23 and it was recommendedthat he have an EUA with flex sig. He is here today for his preop appt for his EUA and flex sig on 09/30/23. Hx: rectal CA, stricture at anastomosis site 07/28/2023 VV with EG Treatment plan: EUA in the OR with flexible sigmoidoscopy 07/14/[address] Muñiz ([facility] at [facility]) - Recommendation is to identify the source of your rectal bleeding - Follow-up with Urology to evaluate for a fistula connection to the urethra - Further surgical intervention is recommended to be pursued with Dr. Cheung or through the [facility] given the complexity of your case. Further work-up prior to surgery should be performed through the [facility] as any further surgical intervention would be recommended through this institution. 06/04/2022 s/p Examination under general anesthesia to the anorectal area, Flexible sigmoidoscopy, and Drainage of the presacral space collection. OPERATIVE FINDINGS: 50% dehiscence of the coloanal anastomosis with presacral space fluid collection that was drained. We did not identify the true lumen of the proximal colonic conduit. The anal canal looks normal with minimal radiation, change it to the anal canal itself. Findings: ? ? Rectal cancer treatment scar observed in the posterior position. ?? ? Remains complete endoscopic response with no signs of recurrence. ?? ? The perianal exam findings include scar noted proximal to the ?? ? coloanal anstomosis. ?? ? There is posterior dehiscence of the coloanal anastomosis. Impression: ?- Scar noted proximal to the coloanal anstomosis ? with posterior dehiscence. ? - No specimens collected. 01/27/2022 s/p robotic laparoscopic low anterior resection with colorectal anastomosis (EEA 31) with intraoperative angiogram (firefly) with diverting loop ileostomy and flexible sigmoidoscopy (negative leak test) OPERATIVE FINDINGS: Hepatic cyst on the right lower lobe, fibrosis and radiation changes in the mesorectum, narrow pelvis. Dissection carried down to the pelvic floor. Stapled coloanal anastomosis with EEA #31 and donuts intact and intact hemostatic staple line visualized on flexible sigmoidoscopy.Negative leak test and diverting loop ileostomy. 01/27/2022 pathology FINAL DIAGNOSIS A-B. Sigmoid colon and rectum, low anterior resection: - No residual/recurrent cancer (see synoptic). - No tumor in twelve lymph nodes (0/12) TUMOR Tumor Site Cannot be determined: no residual cancer Histologic Type no residual cancer Histologic Grade Not applicable Tumor Size Cannot be determined: no residual cancer Tumor Extent No evidence of primary tumor Macroscopic Tumor Perforation Not identified Lymphovascular Invasion Not identified Perineural Invasion Not identified Treatment Effect Present, with no viable cancer cells (complete response, score 0) MARGINS Margin Status for Invasive Carcinoma All margins negative for invasive carcinoma Margin Status for Non-Invasive Tumor All margins negative for high-grade dysplasia / intramucosal carcinoma and low-grade dysplasia REGIONAL LYMPH NODES Regional Lymph Node Status All regional lymph nodes negative for tumor Number of Lymph Nodes Examined 12 Tumor Deposits Not identified PATHOLOGIC STAGE CLASSIFICATION (pTNM, AJCC 8th Edition) Reporting of pT, pN, and (when applicable) pM categories is based on information available to the pathologist at the time the report is issued. As per the AJCC (Chapter 1, 8th Ed.) it is the managingphysician s responsibility to establish the final pathologic stage based upon all pertinent information, including but potentially not limited to this pathology report. TNM Descriptors y (post-treatment) pT Category pT0 pN Category pN0 05/06/2021 s/p Exam under anesthesia with flexible sigmoidoscopy (it is a firm fixed mass in the mid rectum submucosally and retroperitoneally located. This was Danielle-Cut biopsied, frozen section sent toPathology. 05/06/2021 pathology FINAL DIAGNOSIS A. Rectum, mass, biopsy: - At least high-grade squamous intraepithelial lesion (HSIL), with focal features suspicious for invasion (see comment). B. Rectum, mass, danielle-cut biopsy #1: - Invasive moderately differentiated squamous cell carcinoma (see comment). C. Rectum, mass, danielle-cut biopsy #2: - Invasive moderately differentiated squamous cell carcinoma (see comment). D. Rectum, mass, danielle-cut biopsy #3: - Invasive moderately differentiated squamous cell carcinoma (see comment). 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 Multiple deeper levels were examined on selected blocks. 03/20/2021 colonoscopy Findings: ? ? A frond-like/villous partially obstructing large mass was found in ?? ? the rectum. The mass was non-circumferential. In addition, its ?? ? diameter measured three mm. No bleeding was present. Biopsies were ?? ? taken with a cold forceps for histology. ?? ? A 15 mm polyp was found in the cecum. The polyp was carpet-like. The ?? ? polyp was removed with a cold snare. Resection and retrieval were ?? ? complete. ?? ? The exam was otherwise without abnormality. Impression: ? - Likely malignant partially obstructing tumor in ?the rectum. Biopsied. Patient will require a CT scan ?of the abdomen and pelvis with IV and p.o. contrast ?- One 15 mm polyp in the cecum,This was biopsied ?with cold biopsies. . This was a cluster of polyps ?that likely represent a villous adenoma. They are ?going to require saline lift technique to be ?removed.. ?- The examination was otherwise normal. 03/20/2021 pathology FINAL DIAGNOSIS 1. Cecal polyp, biopsy (A) - Tubular adenoma. 2. Rectal mass, biopsy (B) - Submucosa with chronic inflammation, histiocytes, and rare atypical cells, not diagnostic. See comment. COMMENT The mucosa of this biopsy is essentially normal. However, within the submucosa, there is an admixture of lymphocytes, histiocytes, and rare atypical cells of uncertain significance. Immunohistochemical stains reveal that some of the cells appear to stain for cytokeratin AE1/AE3, raising strong consideration that these could be epithelial in nature. An immunostain for CAM5.2 is less definitive. The cells do not stain for S-100 protein, and many of the cells stain for CD68, but these are consistent with nonneoplastic histiocytes. Thus, although this is?worrisome for an underlying carcinoma, this biopsy is not felt to be diagnostic. Physical Exam: There were no vitals taken for this visit. General: Alert and oriented Skin: Normal color, no rash, no lesions. HEENT: EOM, pupils equal, round and reactive. Cardiovascular: Normal S1 & S2, no rubs, murmurs or gallops. No JVD. Pulse regular. Lungs: Normal breath sounds, no wheezes or crackles. Abdomen: Soft, non-tender, no rigidity. Extremities: No deformity, no edema or tenderness, no joint swelling or clubbing. Neurological: Normal cognition and motor skills. Pulses: Carotid and radial pulses normal +2. Assessment Medical Decision Making: Assessment & Diagnosis: Jai Luna is a 73 year old male s/p robotic LAR with chronic leak, s/p EUA with presacral fluid drainage 05/2022 with ongoing rectal mucus drainage and bleeding. Planned for EUA and flex sig. Pelvic MRI scheduled today in the evening. There is no known pertinent medical condition which may affect allison-operative course Data Reviewed: Tests & Documents Reviewed/ordered: [facility] I have independently interpreted: CT Abdomen, CT Pelvis, MRI Pelvis I have discussed Jai Luna's treatment plan and/or results with patient. Treatment plan: I have reviewed with the patient their current symptoms, changes since our last visit, the above listed documents and physical exam. Based on this, the following surgery is planned: EUA. The risks, benefits and anticipated outcomes of the procedure, the risks and benefits of the alternatives to the procedure and the roles and tasks of the personnel to be involved were discussed with the patient and the patient consents to the procedure and agrees to proceed. Informed consent has been obtained. The following details surrounding surgery were discussed: Preoperative prep: No Bowel Prep; Clear liquids day before and Fleet Enema's x2 Length of hospital stay: OP Anticipated diet at time of discharge from the hospital: Regular Anticipated activity restrictions at time of discharge from the hospital: Resume normal activities with no lifting or pounding exercises. Prior to surgery, the following consults have been requested: Anesthesia, [facility] Nurse Pre-op, and Pre-op Clinic Prior to surgery, the following lab tests have been ordered: EKG, CBC, CMP, Type & Screen, Con ABO I Dutch Cheung MD Additional counseling: Patient given verbal and written preop instructions and voices comprehension and compliance. Risk of morbidity, mortality and/or complications of treatment plan: low [facility] Miscellaneous Notes* Telephone Encounter - Jenna Sevilla LPN - 08/10/2023 12:17 PM EDT Forms were signed and faxed on 08/03/23. Patient aware, states received call from [facility] stating order was on its way to patient. Jenna Sevilla LPN * Telephone Encounter - Katy Faust MD - 08/09/2023 12:50 PM EDT Verify forms were signed and faxed then let patient know * Telephone Encounter - Jenna Sevilla LPN - 08/03/2023 1:51 PM EDT Forms received from [facility], patient updated via SeeJayt and forms forwarded to PCP. Jenna Sevilla LPN documented in this encounterSam[facility] Telephone encounter Note * Telephone Encounter - Jenna Sevilla LPN - 08/10/2023 12:17 PM EDT Forms were signed and faxed on 08/03/23. Patient aware, states received call from [facility] stating order was on its way to patient. Jenna Sevilla LPN [facility]06-10-2024 Telephone encounter Note* Telephone Encounter - Katy Faust MD - 08/09/2023 12:50 PM EDT Verify forms were signed and faxed then let patient know [facility]06-04-2024 Telephone encounter Note* Telephone Encounter - Jenna Sevilla LPN - 08/03/2023 1:51 PM EDT Forms received from [facility], patient updated via eXenSa and forms forwarded to PCP. Jenna Sevilla LPN [facility]05-31-2024 Telephone encounter Note* Telephone Encounter - Ashlyn Sullivan RN - 07/30/2023 4:09 PM EDT Radiologic Technologist spoke to pt and procedure on 09/30/23 and routing on 09/22/23 is agreeable. [facility]05-31-2024 Miscellaneous Notes* Telephone Encounter - Ashlyn Sullivan RN - 07/30/2023 4:09 PM EDT Radiologic Technologist spoke to pt and procedure on 09/30/23 and routing on 09/22/23 is agreeable. * Telephone Encounter - Kateryna Macedo - 07/30/2023 3:06 PM EDT Jai Luna accepts 09/14 preop but 09/22 surgery is not a good date. documented in this encounterSam[facility] Telephone encounter Note * Telephone Encounter - Kateryna Macedo - 07/30/2023 3:06 PM EDT Jai Luna accepts 09/14 preop but 09/22 surgery is not a good date. [facility]05-31-2024 Telephone encounter Note* Telephone Encounter - Ashlyn Sullivan RN - 07/30/2023 2:06 PM EDT Radiologic Technologist called pt and left a VM offered 09/22 for EUA and flex sig and route on 09/14 and get his MRI rectum that day as well. [facility]05-31-2024 Miscellaneous Notes* Telephone Encounter - Ashlyn Sullivan RN - 07/30/2023 2:06 PM EDT Radiologic Technologist called pt and left a VM offered 09/22 for EUA and flex sig and route on 09/14 and get his MRI rectum that day as well. documented in this encounterSam[facility]05-29-[facility] History of Present illness Narrative* Ramiro Cheung MD - 07/28/2023 4:45 PM EDT COLORECTAL SURGERY VIRTUAL VISIT FOLLOW UP I have communicated my name and active licensure. The patient's identity and physical location wereverified at the time of this visit. Either the patient or their legal dermatology sales representative has been informed of the risks and benefits of -- and alternatives to -- treatment through a remote evaluation andconsents to proceed with the evaluation remotely. I had a virtual visit with Mr. Luna today for follow up of rectal bleeding. UPDATED HISTORY: Jai Luna is a 73-year-old male referred by Dr Muñiz for the surgical evaluation of his recurrent rectal bleeding s/p Rx LAR d/t rectal cancer in 2021. He had an EUA and colonoscopy with Dr South 06/04/22 that showed a 50% dehiscence of the anastomosis posteriorly. He had an OV with Dr Muñiz ([facility]) on 07/14/23 for rectal bleeding and it was recommended that he see Dr Cheung again to assess as to the source of the bleeding. Hx: rectal CA, stricture at anastomosis site 07/14/[address] Muñiz ([facility]) - Recommendation is to identify the source of your rectal bleeding - Follow-up with Urology to evaluate for a fistula connection to the urethra - Further surgical intervention is recommended to be pursued with Dr. Cheung or through the [facility] given the complexity of your case. Further work-up prior to surgery should be performed through the [facility] as any further surgical intervention would be recommended through this institution. 06/04/2022 s/p Examination under general anesthesia to the anorectal area, Flexible sigmoidoscopy, and Drainage of the presacral space collection. OPERATIVE FINDINGS: 50% dehiscence of the coloanal anastomosis with presacral space fluid collection that was drained. We did not identify the true lumen of the proximal colonic conduit. The anal canal looks normal with minimal radiation, change it to the anal canal itself. Findings: Rectal cancer treatment scar observed in the posterior position. Remains complete endoscopic response with no signs of recurrence. The perianal exam findings include scar noted proximal to the coloanal anstomosis. There is posterior dehiscence of the coloanal anastomosis. Impression: - Scar noted proximal to the coloanal anstomosis with posterior dehiscence. - No specimens collected. 01/27/2022 s/p robotic laparoscopic low anterior resection with colorectal anastomosis (EEA 31) with intraoperative angiogram (firefly) with diverting loop ileostomy and flexible sigmoidoscopy (negative leak test) OPERATIVE FINDINGS: Hepatic cyst on the right lower lobe, fibrosis and radiation changes in the mesorectum, narrow pelvis. Dissection carried down to the pelvic floor. Stapled coloanal anastomosis with EEA #31 and donuts intact and intact hemostatic staple line visualized on flexible sigmoidoscopy.Negative leak test and diverting loop ileostomy. 01/27/2022 pathology FINAL DIAGNOSIS A-B. Sigmoid colon and rectum, low anterior resection: - No residual/recurrent cancer (see synoptic). - No tumor in twelve lymph nodes (0/12) TUMOR Tumor Site Cannot be determined: no residual cancer Histologic Type no residual cancer Histologic Grade Not applicable Tumor Size Cannot be determined: no residual cancer Tumor Extent No evidence of primary tumor Macroscopic Tumor Perforation Not identified Lymphovascular Invasion Not identified Perineural Invasion Not identified Treatment Effect Present, with no viable cancer cells (complete response, score 0) MARGINS Margin Status for Invasive Carcinoma All margins negative for invasive carcinoma Margin Status for Non-Invasive Tumor All margins negative for high-grade dysplasia / intramucosal carcinoma and low-grade dysplasia REGIONAL LYMPH NODES Regional Lymph Node Status All regional lymph nodes negative for tumor Number of Lymph Nodes Examined 12 Tumor Deposits Not identified PATHOLOGIC STAGE CLASSIFICATION (pTNM, AJCC 8th Edition) Reporting of pT, pN, and (when applicable) pM categories is based on information available to the pathologist at the time the report is issued. As per the AJCC (Chapter 1, 8th Ed.) it is the managingphysician's responsibility to establish the final pathologic stage based upon all pertinent information, including but potentially not limited to this pathology report. TNM Descriptors y (post-treatment) pT Category pT0 pN Category pN0 05/06/2021 s/p Exam under anesthesia with flexible sigmoidoscopy (it is a firm fixed mass in the mid rectum submucosally and retroperitoneally located. This was Danielle-Cut biopsied, frozen section sent toPathology. 05/06/2021 pathology FINAL DIAGNOSIS A. Rectum, mass, biopsy: - At least high-grade squamous intraepithelial lesion (HSIL), with focal features suspicious for invasion (see comment). B. Rectum, mass, danielle-cut biopsy #1: - Invasive moderately differentiated squamous cell carcinoma (see comment). C. Rectum, mass, danielle-cut biopsy #2: - Invasive moderately differentiated squamous cell carcinoma (see comment). D. Rectum, mass, danielle-cut biopsy #3: - Invasive moderately differentiated squamous cell carcinoma (see comment). 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 Multiple deeper levels were examined on selected blocks. 03/20/2021 colonoscopy Findings: A frond-like/villous partially obstructing large mass was found in the rectum. The mass was non-circumferential. In addition, its diameter measured three mm. No bleeding was present. Biopsies were taken with a cold forceps for histology. A 15 mm polyp was found in the cecum. The polyp was carpet-like. The polyp was removed with a cold snare. Resection and retrieval were complete. The exam was otherwise without abnormality. Impression: - Likely malignant partially obstructing tumor in the rectum. Biopsied. Patient will require a CT scan of the abdomen and pelvis with IV and p.o. contrast - One 15 mm polyp in the cecum,This was biopsied with cold biopsies. . This was a cluster of polyps that likely represent a villous adenoma. They are going to require saline lift technique to be removed.. - The examination was otherwise normal. 03/20/2021 pathology FINAL DIAGNOSIS 1. Cecal polyp, biopsy (A) - Tubular adenoma. 2. Rectal mass, biopsy (B) - Submucosa with chronic inflammation, histiocytes, and rare atypical cells, not diagnostic. See comment. COMMENT The mucosa of this biopsy is essentially normal. However, within the submucosa, there is an admixture of lymphocytes, histiocytes, and rare atypical cells of uncertain significance. Immunohistochemical stains reveal that some of the cells appear to stain for cytokeratin AE1/AE3, raising strong consideration that these could be epithelial in nature. An immunostain for CAM5.2 is less definitive. The cells do not stain for S-100 protein, and many of the cells stain for CD68, but these are consistent with nonneoplastic histiocytes. Thus, although this is worrisome for an underlying carcinoma, this biopsy is not felt to be diagnostic. PHYSICAL FINDINGS OF NOTE: Patient reported height 5'6" and weight 187 lbs General - Normal, healthy, cooperative, in no acute distress Able to interact verbally by video conference Pulmonary - respiratory effort normal Abdominal - Not performed Motor - patient seen sitting with Normal appearing strength and coordination Anorectal exam - Not Performed Medical Decision Making: Assessment Assessment & Diagnosis: Jai Luna is a 73 year old male eferred by Dr Muñiz for the surgical evaluation of his recurrent rectal bleeding s/p Rx LAR d/t rectal cancer in 2021. Data Reviewed: Tests & Documents Reviewed/ordered: Review of Pathology Review of Procedures / Tests: Colonoscopy, Flexible Sigmoid[facility] I have independently interpreted: n/a I have discussed Jai Luna's treatment plan and/or results with patient. Treatment plan: EUA in the OR with flexible sigmoidoscopy I Dutch Cheung MD Risk of morbidity, mortality and/or complications of treatment plan: aníbal I spent a total of 35 minutes on the date of the service which included preparing to see the patient and [id number] patient care. [facility] History of Present illness Narrative* Sabrina Muñiz MD - 07/14/2023 1:30 PM EDT COLORECTAL SURGERY OFFICE VISIT PATIENT NAME: Jai Luna : 1950 TODAY'S DATE: 07/14/2023 Chief Complaint Patient presents with New Patient Evaluation for second opinion for ongoing rectal bleeding since sx, s/p - robotic asst lap LAR w/ intraoperative angiogram w/ diverting loop ileostomy 01/27/[address] Cheung h/o of rectal squamos cell cancer diagnosed in 04/2021, h/o of chemothearpy OTHER Pt accompanied by SUBJECTIVE: Jai Luna is a 73 y.o. male who is here today for Evaluation for second opinion for ongoing rectal bleeding since sx, s/p - robotic asst lap LAR w/ diverting loop ileostomy 01/27/[address] Cheung h/o of rectal squamous cell cancer diagnosed in 04/2021, h/o of chemoradiation prior to surgery Pt underwent examination under general anesthesia to the anorectal area, flex sig, and Drainage of the presacral space collection by Dr. Cheung. 06/21/22 His ileostomy is still in place and never reversed Patient c/o rectal bleeding daily, significant at times, using baby wipes to clean up episodes of bleeding, reconnection not recommended by Dr. Cheung due to potential risk. Patient wears dry pad to protect underwear throughout the day, typically only needs one pad per day, patient notes bright redblood per rectum when urinating requiring him to sit on the toilet when urinating. Reports passing urine when ejaculating since surgery. Review of Systems as documented Past Medical History: Diagnosis Date Rectal cancer (CMS/HCC) (HCC) S/P triple vessel bypass Past Surgical History: Procedure Laterality Date COLONOSCOPY OTHER SURGICAL HISTORY rupture blood vessel PROSTATE SURGERY STENT INSERTION (HISTORICAL) Current Outpatient Medications on File Prior to Visit Medication Sig Dispense Refill aspirin 81 MG EC tablet Take 81 mg by mouth in the morning. clopidogrel (Plavix) 75 MG tablet Take 75 mg by mouth daily. No current facility-administered medications on file prior to visit. Social History Socioeconomic History Marital status: Spouse name: Not on file Number of children: Not on file Years of education: Not on file Highest education level: Not on file Occupational History Not on file Tobacco Use Smoking status: Former Types: Cigarettes Smokeless tobacco: Not on file Substance and Sexual Activity Alcohol use: Yes Drug use: Never Sexual activity: Not on file Other Topics Concern Not on file Social History Narrative Not on file Social Determinants of Health Financial Resource Strain: Not on file Food Insecurity: Not on file Transportation Needs: Not on file Physical Activity: Not on file Stress: Not on file Social Connections: Not on file Intimate Partner Violence: Not on file Housing Stability: Not on file No family history on file. Allergies: Allergies Allergen Reactions Clindamycin Other Codeine Other OBJECTIVE: BP 116/68 (BP Location: Right arm, Patient Position: Sitting, BP Cuff Size: Large adult long) Temp 37.1 C (98.7 F) (Oral) Ht 5' 6" (1.676 m) Wt 190 lb 9.6 oz (86.5 kg) BMI 30.76 kg/m Physical Examination GENERAL: NAD, alert, oriented HEENT: Pupils equal, normal conjunctivae without scleral icterus PULMONARY: Normal respiratory effort, chest non-tender CARDIO: no edema ABDOMEN: soft, non-distended, non-tender, no guarding, no rebound, no obvious hepatosplenomegaly; ileostomy in place PSYCHIATRIC: appropriate mood and judgement RECTUM: Perianal skin appears normal, no rashes. Perianal sensation normal. Digital Exam: Tone: normal; Palpable masses: no Anoscope: colorectal anastomotic stricture with friable, bleeding mucosa Exam chaperoned by female insurance sales assistant. ASSESSMENT/PLAN: Diagnosis Plan 1. Rectal bleeding External referral to Colorectal Surgery 2. History of rectal cancer External referral to Colorectal Surgery 3. Colorectal anastomotic stricture External referral to Colorectal Surgery Patient is referred back to Dr. 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 Kimball for further work-up/surgical intervention . Sabrina Muñiz MD [facility] Colorectal Surgery [address], [address] [place], [place] [address] p [phone] f [phone] * Belkis Baptiste RN - 07/14/2023 1:30 PM EDT HPI: Patient presents to evaluate for second opinion for ongoing rectal bleeding since sx, s/p - robotic asst lap LAR w/ intraoperative angiogram w/ diverting loop ileostomy 01/27/[address] 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 Rectal bleeding daily, significant at times, using baby wipes to clean up episodes of bleeding, Ileostomy from original surgery remains in place, reconnection not recommended by Dr. Cheung due to potential risk. Patient wears dry pad to protect underwear throughout the day, typically only needs one pad per day, patient notes bright red blood per rectum when urinating requiring him to sit on the toilet when urinating. Reports passing urine when ejaculating since surgery. [facility] Instructions* Patient Instructions* Belkis Baptiste RN - 07/14/2023 1:30 PM EDT - Recommendation is to identify the source of your rectal bleeding - Follow-up with Urology to evaluate for a fistula connection to the urethra - Further surgical intervention is recommended to be pursued with Dr. Cheung or through [facility] given the complexity of your case. Further work-up prior to surgery should be performed through the [facility] as any further surgical intervention would be recommended through this institution. documented in this [facility]04-15-2024 SRIDEVI Palacios MA Caller: Unspecified (Today, 8:32 AM) Please review [employer] ELECTRICAL MECHANICAL TECHNICIAN Referral scanned to media today.[facility] 06-14-2023 History of Present illness Narrative* Andria Linares RT(R) - 06/14/2023 9:00 AM EDT Radiology Service Progress Note PATIENT NAME: Jai Luna DATE OF SERVICE: June 14, 2023 TIME: 8:36 AM PATIENT IDENTITY VERIFICATION COMPLETED USING TWO (2) IDENTIFIERS: Name and Date of confirmedby patient verbally. FALL SCREENING: Has the patient had 2 falls in the last year or 1 fall with injury or currently using an Ambulatory Assistive Device (Walker, Cane, Wheelchair, Crutches, etc.)? No PATIENT GENDER DATA: Male PATIENT RELEVANT IMPLANT DATA REVIEWED: Yes PATIENT PRESENTS WITH AN IMPLANTABLE OR ATTACHED FOOD PORTER: No RADIOLOGY DEPARTMENT: General X-ray: Exam(s) Completed: Upper Extremity X- Ray(s): Shoulder, AP / TRUE AP / AXILLARY left PERIPHERAL IV DATA: Not applicable SIGNED BY: RT Claudia(R) June 14, 2023 8:36 AM documented in this [facility] History of Present illness Narrative* Michael Christian MD - 06/14/2023 8:52 AM EDT Michael Christian MD Department of Orthopaedics Orthopaedics [address] [place] [id number] Dept: [phone] Dept June 14, 2023 CHIEF COMPLAINT: New and Pain of the Left Shoulder HPI Patient here today for left shoulder pain that has been ongoing for years. He recently had a fall and landed on the left side. Thinks he may have broken some ribs too. He has numbness, tingling and cramping in the left arm. Right hand dominant. He brought along outside vascular studies for review. 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 He is recovering from his fall but is overall range of motion and strength is excellent, considering. He is going to continue normal use of the shoulder. He may consider cortisone injection at some point. FOLLOW UP INSTRUCTIONS: As needed Mr. Jai Luna was advised as to contrast therapies and/or to take analgesics/anti-inflammatories as needed and all contraindications were reviewed. OBJECTIVE: Mr. Jai Luna is a pleasant 73 year old in no apparent distress. Gen:There were no vitals taken for this visit. nl development, non obese, no deformities ENT: Normocephalic, normal hearing, moist mucosa CV: Pulses:Radial= 2+ and symmetric, capillary refill < 2 secs, no peripheral edema/varicosities Skin: no rash, bruising or lesions. Good turgor. Psych: cooperative and appropriate, alert and oriented x 3, good mood and affect. Musculoskeletal: Supple range of motion of the cervical spine without pain. Spurling signs are negative. No atrophy of the deltoid and shoulder musculature. Left shoulder is nontender to palpation over the SC joint, clavicle and AC joint. No tenderness to palpation over the posterior shoulder, mild tenderness palpation over the anterior lateral corner of the shoulder and greater tuberosity. Mild tenderness at thebicipital groove and coracoid. Active range of motion is 160 degrees of forward elevation, 60 degrees external rotation, and internal rotation to the low thoracic. Passive range of motion is symmetrical, limited by motion, respectively. No laxity with anterior and posterior stress. Mildly positive Neer and Moreno impingement signs. 4+/5 strength with supraspinatus, infraspinatus and subscapularis. Sensation is intact in the axillary, radial, median and ulnar nerve distribution IMAGING: IMPRESSION: Rotator cuff calcific tendinosis Ordnance Artificer Helper: PSCB Transcribe Date/Time: Jun 16 2023 4:30P Dictated by : KESHIA HIGGINBOTHAM MD This examination was interpreted and the report reviewed and electronically signed by: KESHIA HIGGINBOTHAM MD on Jun 16 2023 4:31PM EST Results-Findings * * *Final Report* * * DATE OF EXAM: Jun 14 2023 8:53AM [id number] - XR SHLDR >/=3V AP/DANIELLE AP/OTHR LT / PROCEDURE REASON: Pain in left arm * * * * Physician Interpretation * * * * PROCEDURE: Left shoulder INDICATION: Pain in left arm .Chronic worsening left shoulder pain with numbness and tingling. TECHNIQUE: XR SHLDR >/=3V AP/DANIELLE AP/OTHR LT COMPARISON: None FINDINGS: No acute fracture or dislocation. Mild degenerative spurring at the AC joint. Glenohumeral joint and acromiohumeral interval are within normal limits. Calcifications in the region of the distal rotator cuff. 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 coronary artery bypass graft 01/18/2013 Bilateral carotid artery stenosis 04/30/2021 Coronary atherosclerosis of unspecified type of vessel, seneca or graft Coronary artery disease Diverticulosis of colon (without mention of hemorrhage) Dyslipidemia 01/16/2013 History of transfusion Hypertension Rectal malignant neoplasm (HCC) 05/29/2021 Rectal mass Past Surgical History: PAST SURGICAL HISTORY Procedure Laterality Date COLONOSCOPY 03/20/2021 COLONOSCOPY FLX DX W/COLLJ SPEC WHEN PFRMD 08/24/2007 Colonoscopy CORONARY ARTERY BYP W/VEIN & ARTERY GRAFT 3 VEIN 03/01/1994 CABG, three grafts EYE SURGERY HX HEART SURGERY HX PERC TRANSL COR ANGIO 10/31/2003 Percutaneous Transluminal Coronary Angio Status PROSTATE SURGERY HX STRABISMUS RECESSION/RESCJ 1 [facility] Strabismus surgery TONSILLECTOMY HX TONSILLECTOMY PRIMARY/SECONDARY <AGE 12 Tonsillectomy VASCULAR SURGERY PROCEDURE Family History: FAMILY HISTORY Problem Relation Age of Onset Heart Father Emphysema Mother Emphysema Sister Anesthesia Problems No Family History Social History: Social History Tobacco Use Smoking status: Former Packs/day: 1.00 Years: 30.00 Additional pack years: 0.00 Total pack years: 30.00 Types: Cigarettes Quit date: 01/29/2000 Years since quittin.3 Smokeless tobacco: Never Vaping Use Vaping Use: Never used Substance Use Topics Alcohol use: Not Currently Comment: rarely Drug use: No Medications: Current Outpatient Medications Medication Sig Magnesium 250 mg tab Take 250 mg by mouth once daily. multivitamin tablet Take 1 tablet by mouth once daily. aspirin, enteric coated (ADULT LOW DOSE ASPIRIN) 81 mg EC tablet Take 1 tablet by mouth once daily. coenzyme Q10 (COENZYME Q-10) 100 mg cap capsule Take 100 mg by mouth once daily. Cholecalciferol, Vitamin D3, 50 mcg (2,000 unit) cap Take 1 capsule by mouth two times a week. Ostomy Supplies (SENSURA CLICK OSTOMY POUCH) misc 1 Each four times a week. Sensura one Piece Precut 1 in Convex Ostomy Adhesive (STOMAHESIVE PASTE) pste 1 application four times a week. ConvaTec Brand atorvastatin (LIPITOR) 40 mg tablet Take 1 tablet by mouth daily at bedtime. For cholesterol per [facility]. No current facility-administered medications for this visit. Allergies: Cat Dander, Clindamycin, and Codeine ROS: General (negative for fatigue, malaise, weight loss/gain) HEENT (negative for headache, earache, recent vision changes, sinus pain, sore throat) Respiratory (no recent shortness of breath, hemoptysis) CV (negative for chest tightness, palpitations) Musculoskeletal (see HPI) Psych (no depression, anxiety) Michael Christian MD [facility] History of Present illness Narrative* Mary Anne Alejandro APRN.SECURITY SYSTEM INSTALLER - 05/31/2023 9:59 AM EDT This note was created using NoteWriter. Subjective Jai Luna is a 73 year old male. 73 year old male with PMH CABG, PE, DVT, rectal CA presents for ingrown toe nail. Acute onset one week ago Left great toe +pain +tenderness Denies injury or trauma Denies fever or chills Denies trauma or injury History of same States that he has visited a rail crew member in the past for same Was hoping you would remove it for me Endorses he is currently being worked up for PVD left lower leg The history is provided by the patient. No online program coordinator was used. Pain (foot) Pain location: left great toe. This is a new problem. The current episode started in the past 7 days. There has been no history of extremity trauma. The problem occurs constantly. The problem has been unchanged. The quality of the pain is described as sharp and aching. The pain is at a severity of 7/10. The pain is moderate. Pertinent negatives include no fever, inability to bear weight, itching,joint locking, joint swelling, limited range of motion, numbness, stiffness or tingling. The symptoms are aggravated by activity and standing. He has tried nothing for the symptoms. The treatment provided no relief. Family history does not include gout or rheumatoid arthritis. There is no history of diabetes, gout, osteoarthritis or rheumatoid arthritis. 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 coronary artery bypass graft 01/18/2013 Bilateral carotid artery stenosis 04/30/2021 Coronary atherosclerosis of unspecified type of vessel, seneca or graft Coronary artery disease Diverticulosis of colon (without mention of hemorrhage) Dyslipidemia 01/16/2013 History of transfusion Hypertension Rectal malignant neoplasm (HCC) 05/29/2021 Rectal mass PAST SURGICAL HISTORY Procedure Laterality Date COLONOSCOPY 03/20/2021 COLONOSCOPY FLX DX W/COLLJ SPEC WHEN PFRMD 08/24/2007 Colonoscopy CORONARY ARTERY BYP W/VEIN & ARTERY GRAFT 3 VEIN 03/01/1994 CABG, three grafts EYE SURGERY HX HEART SURGERY HX PERC TRANSL COR ANGIO 10/31/2003 Percutaneous Transluminal Coronary Angio Status PROSTATE SURGERY HX [facility]ABISMUS [facility] Strabismus surgery TONSILLECTOMY HX TONSILLECTOMY PRIMARY/SECONDARY <AGE 12 Tonsillectomy VASCULAR SURGERY PROCEDURE ALLERGIES Cat Dander, Clindamycin, and Codeine MEDICATIONS multivitamin tablet Take 1 tablet by mouth once daily. aspirin, enteric coated (ADULT LOW DOSE ASPIRIN) 81 mg EC tablet Take 1 tablet by mouth once daily. coenzyme Q10 (COENZYME Q-10) 100 mg cap capsule Take 100 mg by mouth once daily. cephALEXin (KEFLEX) 500 mg capsule Take 1 capsule by mouth four times daily for 5 days. Ostomy Supplies (SENSURA CLICK OSTOMY POUCH) misc 1 Each four times a week. Sensura one Piece Precut 1 in Convex Ostomy Adhesive (STOMAHESIVE PASTE) pste 1 application four times a week. ConvaTec Brand atorvastatin (LIPITOR) 40 mg tablet Take 1 tablet by mouth daily at bedtime. For cholesterol per [facility]. Cholecalciferol, Vitamin D3, 50 mcg (2,000 unit) cap Take 1 capsule by mouth two times a week. FAMILY HISTORY Problem Relation Age of Onset Heart Father Emphysema Mother Emphysema Sister Anesthesia Problems No Family History Social History Tobacco Use Smoking status: Former Packs/day: 1.00 Years: 30.00 Additional pack years: 0.00 Total pack years: 30.00 Types: Cigarettes Quit date: 01/29/2000 Years since quittin.3 Smokeless tobacco: Never Vaping Use Vaping Use: Never used Substance Use Topics Alcohol use: Not Currently Comment: rarely Drug use: No Review of Systems Constitutional: Negative for activity change, appetite change, chills and fever. Eyes: Negative for pain, discharge, redness and itching. Respiratory: Negative for apnea, cough, choking, chest tightness and shortness of breath. Cardiovascular: Negative for chest pain, palpitations and leg swelling. Gastrointestinal: Negative for abdominal pain, diarrhea, nausea and vomiting. Musculoskeletal: Negative for gout and stiffness. Left great toe Skin: Negative for color change, itching, pallor, rash and wound. Allergic/Immunologic: Negative for environmental allergies, food allergies and immunocompromised state. Neurological: Negative for dizziness, tingling, facial asymmetry, light- headedness, numbness and headaches. Hematological: Negative for adenopathy. Does not bruise/bleed easily. Psychiatric/Behavioral: Negative for agitation and behavioral problems. Objective BP 106/62 Pulse 60 Temp 36.1 C (97 F) Resp 16 Wt 85.1 kg (187 lb 9.8 oz) SpO2 97% BMI 30.28 kg/m Physical Exam Vitals and nursing note reviewed. Constitutional: General: He is not in acute distress. Appearance: Normal appearance. He is not ill-appearing, toxic-appearing or diaphoretic. HENT: Head: Normocephalic and atraumatic. Right Ear: External ear normal. Left Ear: External ear normal. Nose: Nose normal. No congestion or rhinorrhea. Mouth/Throat: Mouth: Mucous membranes are moist. Pharynx: Oropharynx is clear. No oropharyngeal exudate or posterior oropharyngeal erythema. Eyes: General: Right eye: No discharge. Left eye: No discharge. Extraocular Movements: Extraocular movements intact. Conjunctiva/sclera: Conjunctivae normal. Pupils: Pupils are equal, round, and reactive to light. Cardiovascular: Rate and Rhythm: Normal rate and regular rhythm. Pulses: Normal pulses. Heart sounds: Normal heart sounds. No murmur heard. No friction rub. No gallop. Pulmonary: Effort: Pulmonary effort is normal. No respiratory distress. Breath sounds: Normal breath sounds. No stridor. No wheezing, rhonchi or rales. Chest: Chest wall: No tenderness. Abdominal: General: Abdomen is flat. There is no distension. Palpations: Abdomen is soft. There is no mass. Tenderness: There is no abdominal tenderness. There is no guarding or rebound. Hernia: No hernia is present. Musculoskeletal: General: Tenderness and signs of injury present. No swelling or deformity. Normal range of motion. Cervical back: Normal range of motion and neck supple. No rigidity or tenderness. Right lower leg: No edema. Left lower leg: No edema. Comments: Left great toe with ingrown toe nail lateral nail fold. No purulence No abscess No red streaking. +neuro +sensation Lymphadenopathy: Cervical: No cervical adenopathy. Skin: General: Skin is warm and dry. Capillary Refill: Capillary refill takes less than 2 seconds. Coloration: Skin is not jaundiced or pale. Findings: No bruising, lesion or rash. Neurological: General: No focal deficit present. Mental Status: He is alert and oriented to person, place, and time. Cranial Nerves: No cranial nerve deficit. Sensory: No sensory deficit. Motor: No weakness. Coordination: Coordination normal. Gait: Gait normal. Deep Tendon Reflexes: Reflexes normal. Psychiatric: Mood and Affect: Mood normal. Behavior: Behavior normal. Thought Content: Thought content normal. Assessment and Plan ASSESSMENT/PLAN: 1. Ingrown nail of great toe - ICD9: 703.0, ICD10: L60.0 Left great toe X 1 week No red flags History of same in past Patient requests removal of ingrown toe nail Explained limitations of express care RX Keflex Epsom soaks Referral to podiatry (patient to make appt) Discussed red flags Mary Anne Alejandro APRN.SECURITY SYSTEM INSTALLER documented in this encounterSam[facility]-27-[facility]24 History of Present illness Narrative* Bhavna Villatoro RN - 04/27/2023 4:11 PM EST pcp agrees with information * Bhavna Villatoro RN - 04/27/2023 2:21 PM EST patient had inr completed at [facility] patients inr is 2.1 (patients inr range is 2.0-3.0) patient is currently taking 7.5mg Thurs,Sat and 5mg all other days patients last dose change was on 08/03/22 due to a high level of 3.2 (dose at that time was 7.5mg Tues,Thurs,Sat and 5mg all other days) patient has had no changes in medication and no missed doses and no change in diet Advised patient to continue on the same dose(s) and that they would only be contacted regarding dosage and follow up instructions after review with provider, if a change is needed. Written instructions given and patient verbalized understanding. Presently scheduled in 3 weeks (05/18/23) for follow up INR. documented in this encounterSam[facility]02-21-2024 Miscellaneous Notes* Telephone Encounter - Jie Abdi MA - 04/21/2023 10:00 AM EST Consult pended, please file if agreeable. Jie Abdi MA documented in this encounterSam[facility]02-13-2024 History of Present illness Narrative* Bhavna Villatoro RN - 04/13/2023 3:57 PM EST pcp agrees with information * Bhavna Villatoro RN - 04/13/2023 2:02 PM EST patient had inr completed at [facility] patients inr is 1.9 (patients inr range is 2.0-3.0) patient is currently taking 7.5mg Thurs,Sat and 5mg all other days patients last dose change was on 08/03/22 due to a high level of 3.2 (dose at that time was 7.5mg ,,Wed and 5mg all other days) patient has had no changes in medication and no missed doses and no change in diet FYI- patient is not interested in changing dose at this time Advised patient to continue on the same dose(s) and that they would only be contacted regarding dosage and follow up instructions after review with provider, if a change is needed. Written instructions given and patient verbalized understanding. Presently scheduled in 2 weeks (04/27/23) for follow up INR. documented in this encounterSam[facility]11-01-2023 Miscellaneous Notes* Telephone Encounter - Elly Ash LPN - 12/30/2022 8:57 AM EDT Patient has been identified by name and date of : Yes, Patient phones for refill(s): Requested Prescriptions Pending Prescriptions Disp Refills warfarin (COUMADIN) 5 mg tablet [Pharmacy Med Name: warfarin 5 mg tablet] 90 tablet 1 Sig: TAKE 7.5 MG ON WEDNESDAY AND WEDNESDAY, AND TAKE 1 TABLET ALL OTHER DAYS Date of last office visit in primary care: 07/17/2022 Date of next office visit in primary care: 01/08/2023 Last 2 Encounter Wt Readings: Date: Wt: 11/03/2022 77.1 kg (169 lb 14.4 oz) 07/17/2022 75.3 kg (166 lb) Previous labs/tests for medication: Coumadin: INR (POCT) (no units) Date Value 12/29/2022 2.7 Please advise. Thank you. Elly Ash LPN. documented in this encounterSam[facility]10-31-2023 History of Present illness Narrative* Bhavna Villatoro RN - 12/29/2022 6:50 PM EDT pcp agrees with information * Bhavna Villatoro RN - 12/29/2022 2:39 PM EDT patient had inr completed at [facility] patients inr is 2.7 (patients inr range is 2.0-3.0) patient is currently taking 7.5mg Thurs,Sat and 5mg all other days patients last dose change was on 08/03/22 due to a high level of 3.2 (dose at that time was 7.5mg Tues,Thurs,Sat and 5mg all other days) patient has had no changes in medication and no missed doses and no change in diet Advised patient to continue on the same dose(s) and that they would only be contacted regarding dosage and follow up instructions after review with provider, if a change is needed. Written instructions given and patient verbalized understanding. Presently scheduled in 4 weeks (01/26/23) for follow u p INR. documented in this encounterSam[facility]10-17-2023 History of Present illness Narrative* Bhavna Villatoro RN - 12/15/2022 5:51 PM EDT pcp agrees with information * Bhavna Villatoro RN - 12/15/2022 3:00 PM EDT patient had inr completed at [facility] patients inr is 2.0 (patients inr range is 2.0-3.0) patient is currently taking 7.5mg Thurs,Sat and 5mg all other days patients last dose change was on 08/03/22 due to a high level of 3.2 (dose at that time was 7.5mg Tues,Thurs,Sat and 5mg all other days) patient has had no changes in medication and no missed doses and no change in diet Advised patient to continue on the same dose(s) and that they would only be contacted regarding dosage and follow up instructions after review with provider, if a change is needed. Written instructions given and patient verbalized understanding. Presently scheduled in 2 weeks (12/29/22) for follow u p INR since this is the first reading since restarting medication 2 weeks ago documented in this encounterSam[facility]10-05-2023 Surgical operation note* Brief Op Note - Justin William MD - 12/03/2022 11:44 AM EDT BRIEF OPERATIVE / PROCEDURE NOTE LOG ID: [id number] SURGERY/PROCEDURE DATE: 12/03/2022 INCISION/PROCEDURE START TIME: 11:24 AM INCISION CLOSE/PROCEDURE END TIME: 11:37 AM SURGEON(S)/PROCEDURALIST(S) AND PUMPING STATION SUPERVISOR(S): Surgeon(s) and Role: * Justin William MD - Primary No Additional Staff SURGERY/PROCEDURE(S): IVC filter removal ANESTHESIA: Procedural Sedation FINDINGS: Normal anatomy as visualized. No caval thrombus or stenosis. ESTIMATED BLOOD LOSS: 2 mL SPECIMENS: IVC filter COMPLICATIONS: None CLOSURE TECHNIQUE: Primary PRE-OP/PRE-PROCEDURE DIAGNOSIS: Retrievable IVC filter. Filter no longer required. POST-OP/POST-PROCEDURE DIAGNOSIS: Same as Preop SIGNATURE: Justin William MD PATIENT NAME: Jai Luna DATE: December 03, 2022 TIME: 11:45 AM documented in this encounterSamar[facility]10-05-2023 History and physical note * Justin William MD - 12/03/2022 11:15 AM EDT PROCEDURAL SEDATION HISTORY AND PHYSICAL EXAM SERVICE DATE: 12/03/2022 SERVICE TIME: 11:16 AM Subjective HPI: This is a 72 year old male who presents with IVC filter for removal. 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 coronary artery bypass graft 01/18/2013 Bilateral carotid artery stenosis 04/30/2021 Coronary atherosclerosis of unspecified type of vessel, seneca or graft Coronary artery disease Diverticulosis of colon (without mention of hemorrhage) Dyslipidemia 01/16/2013 History of transfusion Hypertension Rectal malignant neoplasm (HCC) 05/29/2021 Rectal mass PAST SURGICAL HISTORY Procedure Laterality Date COLONOSCOPY 03/20/2021 COLONOSCOPY FLX DX W/COLLJ SPEC WHEN PFRMD 08/24/2007 Colonoscopy CORONARY ARTERY BYP W/VEIN & ARTERY GRAFT 3 VEIN 03/01/1994 CABG, three grafts EYE SURGERY HX HEART SURGERY HX PERC TRANSL COR ANGIO 10/31/2003 Percutaneous Transluminal Coronary Angio Status PROSTATE SURGERY HX STRABISMUS RECESSION/RESCJ 1 [facility]NTL [facility] Strabismus surgery TONSILLECTOMY HX TONSILLECTOMY PRIMARY/SECONDARY <AGE 12 Tonsillectomy VASCULAR SURGERY PROCEDURE Prior to Admission medications as of 12/03/22 1114 Medication Sig Last Dose Taking warfarin (COUMADIN) 5 mg tablet 7.5 mg on and and 5 mg all other days. 11/28/2022 Ostomy Supplies (SENSURA CLICK OSTOMY POUCH) misc 1 Each four times a week. Sensura one Piece Precut 1 in Convex Ostomy Adhesive (STOMAHESIVE PASTE) pste 1 application four times a week. ConvaTec Brand atorvastatin (LIPITOR) 40 mg tablet Take 1 tablet by mouth daily at bedtime. For cholesterol per [facility]. coenzyme Q10 (COENZYME Q-10) 100 mg cap capsule Take 100 mg by mouth once daily. Cholecalciferol, Vitamin D3, 50 mcg (2,000 unit) cap Take 1 capsule by mouth two times a week. ALLERGIES Allergen Reactions Cat Dander Other: See Comments Clindamycin GI Upset Codeine GI Upset Objective PHYSICAL EXAM: The remainder of the physical exam is noncontributory. AIRWAY: Airway Visualization of Uvula: Yes Mouth opening greater than 2 fingerbreadths: Yes LUNGS: Lungs clear to auscultation CARDIAC: Regular rhythm,Regular rate Assessment/Plan ASA Class: ASA Class:: Patient with mild systemic disease Active Problems: * No active hospital problems. * Resolved Problems: * No resolved hospital problems. * Medication and Non-Pharmacologic VTE Prophylaxis/Anticoagulants VTE Prophylaxis: VTE prophylaxis appropriate Provisional Diagnosis/Treatment Plan: IVC filter for removal. SEDATION GOAL: Moderate SIGNATURE: Justin William MD PATIENT NAME: Jai Luna DATE: December 03, 2022 TIME: 11:15 AM documented in this encounterSamaritan [facility]09-29-2023 Miscellaneous Notes* Telephone Encounter - Rebecca Yeh RN - 11/27/2022 2:42 PM EDT You are scheduled for a IVC Filter Removal, On 12/03/2022. You are to arrive at 0900 am for a 1030 procedure time and Report to [facility]: Entrance A, Elevators to first floor, Ambulatory surgery waiting area on first floor. You can expect to be here for 4-8 hours. Diet: Do not eat any solid food or drink liquids after midnight the day of/night before your procedure. Medications: Ok to take your cardiac, blood pressure, anti-seizure, and chronic pain medications with a sip of water, please take prior to arrival. Bring your current medication list. RADIOLOGY RECOMMENDS THESE MEDICATION RESTRICTIONS: Are you taking any of following medications? Coumadin. IFok with your Prescribing Provider: Stop Coumadin 5 days prior to this procedure. Contact [facility] for an INR of 1.5 or less forday of procedure. Splicer Apprentice/Transportation: How will you be arriving for your procedure? Private car. You will need a responsible adult to accompany you to and from the procedure. Your rolloff truck driver is required to stay with you until you are taken into the procedure room. Please call with any questions [phone] opt 2 to speak with the Radiology Nurses documented in this encounterSamar[facility]09-19-2023 History of Present illness Narrative* Bhavna Villatoro RN - 11/17/2022 4:32 PM EDT pcp agrees with information * Bhavna Villatoro RN - 11/17/2022 2:28 PM EDT patient had inr completed at [facility] patients inr is 2.2 (patients inr range is 2.0-3.0) patient is currently taking 7.5mg Thurs,Sat and 5mg all other days patients last dose change was on 08/03/22 due to a high level of 3.2 (dose at that time was 7.5mg Tues,Thurs,Sat and 5mg all other days) patient has had no changes in patients medication and no missed doses and no change in diet Advised patient to continue on the same dose(s) and that they would only be contacted regarding dosage and follow up instructions after review with provider, if a change is needed. Written instructions given and patient verbalized understanding. Presently scheduled in 4 weeks (12/15/22) for follow u p INR. documented in this encounterSam[facility]09-18-2023 Miscellaneous Notes* Telephone Encounter - Mady Campbell RN - 11/16/2022 4:19 PM EDT WO nursing returned patient message regarding issues with pouch lifting and "hole" under stoma. Left Message: No spoke directly with patient Information/Recommendations provided regarding Patient had a few issues. He states pouching system ([employer]oplast [place] soft convex drainable) has been working well except for past few weeks. It has been lifting and difficult to get to stick. Patient changed yesterday and so far it is working well. He did not want to come in to see outpatient [facility] nursing at [facility] neither did he want to discuss changing anything at all because it is "so far working well this time". 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 Biggest conversation centered around his inability to cancel his vascular IR appointment and reschedule. He has been "getting the run around for days". This [facility] nurse attempted to find out how he would do this without luck. Time spent: 30 minutes SCOTTIE Hernandez, RN, CWOCN documented in this encounterSamaritan [facility]09-05-2023 History of Present illness Narrative* Bhavna Villatoro RN - 11/03/2022 4:45 PM EDT PATIENT NOTIFIED OF INFORMATION * Srinivasan Da Silva APRN.CNS - 11/03/2022 1:46 PM EDT Recommend Coumadin 7.5 mg today then resume usual dosing -- and Wednesday 7.5 mg and 5 mg all other days. Check INR in 2 weeks * Bhavna Villatoro RN - 11/03/2022 1:26 PM EDT patient had inr completed at [facility] patients inr is 1.8 (patients inr range is 2.0-3.0) patient is currently taking 7.5mg Thurs,Sat and 5mg all other days patients last dose change was on 08/03/22 due to a high level of 3.2 (dose at that time was 7.5mg Tues,Thurs,Sat and 5mg all other days) patient has had no changes in medication and no missed doses and no change in diet Advised patient to continue on the same dose(s) and that they would only be contacted regarding dosage and follow up instructions after review with provider, if a change is needed. Written instructions given and patient verbalized understanding. Presently scheduled in 2 weeks (11/17/22) for follow up INR since inr level is just slightly low but most likely due to patient had more greens over the week documented in this encounterSam[facility]itan [facility]09-05-2023 Miscellaneous Notes* Telephone Encounter - Maddison Kohler RN - 11/03/2022 1:42 PM EDT patient is scheduled thank you! * Telephone Encounter - Maddison Kohler RN - 11/03/2022 1:02 PM EDT left a message on home phone and spoke with the patient's ( patient is with his ) patient needs Carotid US patient in agreement message routed to [facility] to assist with scheduling patient lives in [place] prefers imaging closer to his home if possible thank you documented in this encounterSamaritan [facility] Center09-05-2023 Instructions* Patient Instructions* Terry Cifuentes MD - 11/03/2022 11:07 AM EDT PLEASE SCHEDULE IVC FILTER REMOVAL. CONTINUE BLOOD THINNERS AT THIS TIME. YOU INDICATED YOUR WISH TO REMAIN ON COUMADIN. DURATION OF BLOOD THINNERS TO BE DETERMINED. PLEASE OBTAIN YOUR ULTRASOUND FROM JUNE 2022 (IMAGES) AND PLEASE SEND TO MY OFFICE. START WEARING COMPRESSION STOCKINGS 20-30 MM HG KNEE HIGH USE DAILY, TAKE OFF AT NIGHT. FOLLOW UP WITH ME IN 4 MONTHS. SCHEDULE ULTRASOUND OF THE LEFT LEG PRIOR TO YOUR VISIT. documented in this encounterSamaritan [facility] Center09-05-2023 History of Present illness Narrative* Terry Cifuentes MD - 11/03/2022 10:00 AM EDT Images from the original note were not included. [facility] [place] [facility] Department of Cardiovascular Medicine SECTION OF VASCULAR MEDICINE OUTPATIENT VISIT DATE November 02, 2022 OUTPATIENT VISIT TYPE FOLLOW UP Jai Luna is a 72 year old male here today for 6 month follow up. Patient is accompanied by his . 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 _ 02/01/2022 - splenic artery PSA c/b hemorrhagic shock, s/p coil embolization 02/01/2022 and intensive transfusion protocol (PRBD 6U, PLT 1 units, FFP 6U, Cryo 1U), pressor support. S/p US guided paracentesis evaluation of perisplenic/perigastric hematoma and hemoperitoneum with 3L blood evacuated. _ 02/12/2022 provoked bilateral segmental-subsegmental PE and bilateral calf DVT with chronic appearing changes in the R popliteal vein despite of VTE prophylaxis. Treated with IV UFH to enoxaparin 02/12-02/16/22 _ 02/16/2022 s/p IVC filter due to interval increase in abdominal hematoma _ 03/02/2022 submassive high risk PE with progression of bilateral PE with new filling defects in thedistal R and L main pulmonary arteries. PESI score 122, class IV. New findings of extensive DVT L CIV through calf veins and R external iliac through femoral veins and a second soleal vein. While offanticoagulation. Status post aspiration thrombectomy of pulmonary arteries, mechanical IVC and right common iliac vein thrombectomy, IVC filter retrieval and placement 03/03/2022 _ discharged on 03/10/2022 on enoxaparin 80 mg BID , transitioned to Eliquis 5 mg BID 03/23/2022 _ type II myocardial infarction and acute diastolic congestive heart failure 01/2022 in the settingof critical illness in patient with hx of CABG in the late , s/p PCIs, previously on Plavix outpatient Last Office Visit 05/20/2022. Continue current anticoagulation with Eliquis 5 mg BID with plan to hold for 4 days prior to surgery on 06/04/2022 Schedule bilateral lower extremity duplex US prior to surgery to evaluate thrombus burden If clot is resolved, plan pharmacologic VTE prophylaxis during hospitalization and extend for 5 wkspostop. If residual thrombosis, plan to transition to therapeutic anticoagulation on discharge. Duration oftherapy to be further advised. Recommend pharmaco-mechanical VTE prophylaxis during hospitalization. Further anticoagulation recommendations to be determined based on US results. IVC filter removal to be further coordinated postoperatively Interval history: ED visits or hospitalizations: 06/04/2022 planned ostomy reversal was deferred due to concern for a leak. Anticoagulation with Eliquis was resumed. 07/20/2022 underwent [facility] V[facility] at [facility]: New symptoms or concerns: walking is painful, difficult to walk any distance Patient reports no further plans for surgery. Patient reports being comfortable with ostomy bag. Patient reports having pain in the left leg. He has more problems with initial steps, symptoms improve with distance. Walking up the hill is problematic. He has swelling in the left leg toward the end of the day. He wears compression stockings ( thinks from the hospital). He has no numbness in the legs. He has chronic lower back pain. He denies weakness in the legs. He was seen by orthopedic surgeon and was told no major issues. Patient reports being transitioned from Eliquis to coumadin in June 2022 after ultrasound of the left leg. He was seen by a local vascular surgeon who recommended to bridge to coumadin. He is on coumadin 5 mg daily. He has mucus with some blood from the anus. No bleeding including epistaxis, hemoptysis, hematemesis, hematuria, hematochezia, melena, excessive bruising. Patient denies acute swelling, pain, redness, increased warmth or other sign of DVT. He has no acute chest pain, SOB, palpitations, lightheadedness or other signs of PE. 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 coronary artery bypass graft 01/18/2013 Bilateral carotid artery stenosis 04/30/2021 Coronary atherosclerosis of unspecified type of vessel, seneca or graft Coronary artery disease Diverticulosis of colon (without mention of hemorrhage) Dyslipidemia 01/16/2013 History of transfusion Hypertension Rectal malignant neoplasm (HCC) 05/29/2021 Rectal mass PAST SURGICAL HISTORY Procedure Laterality Date COLONOSCOPY 03/20/2021 COLONOSCOPY FLX DX W/COLLJ SPEC WHEN PFRMD 08/24/2007 Colonoscopy CORONARY ARTERY BYP W/VEIN & ARTERY GRAFT 3 VEIN 03/01/1994 CABG, three grafts EYE SURGERY HX HEART SURGERY HX PERC TRANSL COR ANGIO 10/31/2003 Percutaneous Transluminal Coronary Angio Status PROSTATE SURGERY HX STRABISMUS RECESSION/RESCJ 1 [facility] [place] Strabismus surgery TONSILLECTOMY HX TONSILLECTOMY PRIMARY/SECONDARY <AGE 12 Tonsillectomy VASCULAR SURGERY PROCEDURE Allergies: Cat Dander, Clindamycin, and Codeine CURRENT MEDICATIONS: Current Outpatient Medications on File Prior to Visit Medication Sig warfarin (COUMADIN) 5 mg tablet 7.5 mg on and and 5 mg all other days. Ostomy Supplies (SENSURA CLICK OSTOMY POUCH) misc 1 Each four times a week. Sensura one Piece Precut 1 in Convex Ostomy Adhesive (STOMAHESIVE PASTE) pste 1 application four times a week. ConvaTec Brand atorvastatin (LIPITOR) 40 mg tablet Take 1 tablet by mouth daily at bedtime. For cholesterol per [facility]. coenzyme Q10 (COENZYME Q-10) 100 mg cap capsule Take 100 mg by mouth once daily. Cholecalciferol, Vitamin D3, 50 mcg (2,000 unit) cap Take 1 capsule by mouth two times a week. No current facility-administered medications on file prior to visit. Testing since Last Office Visit: BLE VDU 06/01/2022 Compared to prior study of 03/03/2022,Remaining thrombus appears chronic in all vessels but the left distal external iliac vein and common femoral veins and left external iliac vein recanalizes via retrograde flow, on today's exam. RIGHT SIDE - DEEP VEINS Negative for acute deep vein thrombosis. Chronic post-thrombotic change in the profunda femoral vein at proximal. Chronic post-thrombotic change in the peroneal veins at the mid calf. LEFT SIDE - DEEP VEINS Clinical correlation is advised; deep vein thrombosis of indeterminate age in the distal external iliac vein and common femoral vein. Persistent thrombus noted. Positive for valvular incompetency in the distal external iliac vein. Collateral flow noted, off of the common femoral vein. Chronic post-thrombotic change in the profunda femoral vein and femoral vein at proximal. Chronic post-thrombotic change in the posterior tibial veins, peroneal veins and soleal vein at the mid calf. LEFT SIDE - SUPERFICIAL VEINS Chronic post-thrombotic change in the small saphenous vein at proximal. Chronic post-thrombotic change in the great saphenous vein at the proximal thigh. History of bypass surgery Only segments visualized of the great saphenous vein. 10/21/2022 BLE VDU Compared to prior study of 06/01/2022, No significant change. No new acute thrombus noted. RIGHT SIDE - DEEP VEINS Negative for acute deep vein thrombosis. Chronic post-thrombotic change in the profunda femoral vein at proximal. Chronic post-thrombotic change in the peroneal veins at the mid calf. RIGHT SIDE - SUPERFICIAL VEINS Negative for superficial thrombophlebitis in the great saphenous vein and small saphenous vein. LEFT SIDE - DEEP VEINS Deep vein thrombosis of indeterminate age in the distal external iliac vein and common femoral vein is again noted. Appears slightly improved. Chronic post-thrombotic change in the femoral vein and profunda femoral vein at proximal. Chronic post-thrombotic change in the posterior tibial veins, peroneal veins and soleal vein at the mid calf. LEFT SIDE - SUPERFICIAL VEINS Chronic post-thrombotic change in the great saphenous vein at the saphenofemoral junction. Chronic post-thrombotic change in the small saphenous vein at the proximal calf. Technologist: Isis Flynn RVT, [facility] Ordering physician: YESSICA TINOCO Interpreting physician: TOM Leon DO 10/21/2022 vs 06/01/2022 Improved clot burden since 03/03/2022 Component Latest Ref Rng & Units 07/07/2022 07/20/2022 07/24/2022 07/28/2022 08/03/2022 08/11/2022 08/25/2022 09/07/2022 10/06/2022 WBC 3.70 - 11.00 k/uL 5.36 RBC 4.20 - 6.00 m/uL 3.97 (L) Hemoglobin 13.0 - 17.0 g/dL 12.3 (L) Hematocrit 39.0 - 51.0 % 39.7 MCV 80.0 - 100.0 fL 100.0 MCH 26.0 - 34.0 pg 31.0 MCHC 30.5 - 36.0 g/dL 31.0 RDW-CV 11.5 - 15.0 % 14.0 Platelet Count 150 - 400 k/uL 280 MPV 9.0 - 12.7 fL 10.2 Neut% % 57.3 Abs Neut (ANC) 1.45 - 7.50 k/uL 3.07 Lymph% % 23.1 Abs Lymph 1.00 - 4.00 k/uL 1.24 Overton% % 14.6 Abs Overton <0.87 k/uL 0.78 Eosin% % 3.7 Abs Eosin <0.46 k/uL 0.20 Baso% % 0.7 Abs Baso <0.11 k/uL 0.04 Immature Gran % % 0.6 IMMATURE GRANS (ABS) <0.10 k/uL 0.03 NRBC /100 WBC 0.0 Absolute nRBC <0.01 k/uL <0.01 DTYPE Auto Protein, Total 6.3 - 8.0 g/dL 7.1 Albumin 3.9 - 4.9 g/dL 4.2 Calcium 8.5 - 10.2 mg/dL 9.7 Bilirubin, Total 0.2 - 1.3 mg/dL 0.3 Alkaline Phosphatase 38 - 113 U/L 84 AST 14 - 40 U/L 31 ALT 10 - 54 U/L 26 Glucose 74 - 99 mg/dL 101 (H) BUN 9 - 24 mg/dL 24 Creatinine 0.73 - 1.22 mg/dL 1.19 Sodium 136 - 144 mmol/L 137 Potassium 3.7 - 5.1 mmol/L 4.2 Chloride 97 - 105 mmol/L 105 CO2 22 - 30 mmol/L 19 (L) Anion Gap 9 - 18 mmol/L 13 eGFR >=60 mL/min/1.73m 65 PT Sec 9.7 - 13.0 sec 13.1 (H) 30.6 (H) 18.4 (H) PT INR 0.9 - 1.3 1.3 3.1 (H) 1.8 (H) INR (POCT) 0.8 - 1.2 3.2 (H) 2.5 (H) 1.8 (H) 2.0 (H) 2.1 (H) Internal Quality Check Acceptable Acceptable Acceptable Acceptable Acceptable REVIEW OF SYSTEMS: Card: dizziness/lightheadedness Pulm:No cough or sputum production Gastro:no bowel changes. GenUr:no urinary symptoms. Endo:no chronic fatigue, significant weight loss/gain, heat/cold intolerance. and cold intolerance Neuro:weakness in legs, decreased hearing in Right ear, deaf in Left ear Rheum:chronic back pain and chronic hip pain Infect:no fevers, chills, rigors or night sweats. Skin:no rash Heme:no bruising PHYSICAL EXAM: BP 120/76 Pulse (!) 56 Wt 77.1 kg (169 lb 14.4 oz) BMI 27.42 kg/m BMI 27.42 kg/(m^2) BP w/Orthostatic Vitals BP w/Orthostatic Vitals Date and Time Orthostatic BP Orthostatic Pulse BP Pulse BP Position BP Site BP Cuff Size 11/03/22 1024 -- -- 120/76 56 -- -- -- 11/03/22 1021 -- -- 152/83 60 -- -- -- General appearance: Alert, cooperative, pleasant, in no acute distress Right sided carotid bruit Heart: regular rate and rhythm, without murmur Lungs: clear to auscultation, without rales or wheeze, good air exchange Abdomen: soft, nondistended, with normal bowel sounds, nontender Ext: No cyanosis or clubbing. Edema: Trace pitting edema symmetrical without erythema or tendenress. 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 Since the last visit in April 2022 patient was found acute DVT 06/2021 (at [facility], no access to imaging), following which his anticoagulation was changed to warfarin (started by a local vascular surgeon following ultrasound). No s/s of acute VTE on exam today. We discussed likely provoked nature of the VTE and residual chronic postthrombotic venous changes. Without access to OSH imaging I would not be able to provide my independent opinion on the acuity of the DVT and anticoagulation management. Patient reports he has no problem with being on warfarin, which is tolerated well. Exam today is remarkable for brachial pressure gradient (although radial pulses 2+ bilaterally), for which patient is asymptomatic. Review of CT chest demonstrated atherosclerotic changes in thoracicaorta/origin of L subclavian artery - suspect asymptomatic arterial stenosis. Recommend: IVC filter removal - to be scheduled Continue therapeutic anticoagulation (currently on warfarin INR 2-3) to complete minimum of 1 year of anticoagulation Request venous duplex US imaging from [facility] (06/2022) Carotid duplex US to evaluate asymptomatic right side bruit. Atherosclerotic changes noted in thoracic aorta/origin of left subclavian artery. We discussed importance of continuity of care. If patient wishes further care to be done locally, it would be highly beneficial for his local providers to have access to prior workup results to guidemanagement. All questions answered. RTC 4 mo, earlier PRN TERRY BALDERRAMA MD CC: Katy Faust MD documented in this encounterSamaritan [facility] Center08-24-2023 Miscellaneous Notes* Telephone Encounter - Yessica Tinoco APRN.CNP - 10/22/2022 4:41 PM EDT INTERVENTIONAL RADIOLOGY PATIENT APPOINTMENT REQUEST October 22, 2022 Jai Luna [id number] Request: Schedule Requestor: Yessica Tinoco APRN.CNP Ref.Physician: Dr. Jorge JIMÉNEZ Physician: Dr. Patel Procedure/Request: telephone visit Reason/ICD Code: IVC filter Priority: routine Scheduling Comments: Please, schedule telephone visit with DAISHA only (on ) Does MD need to be present for consult?: DAISHA only IR Procedure Room: N/A Equipment or Vendor Request: No / N/A Anticipated length of procedure (not including prep or Anesthesia): NA Pre-Procedure Orders: N/A Sedation: NA Bed Reservation: NA Location of Procedure: NA documented in this encounterSamaritan [facility] Center08-02-2023 Miscellaneous Notes* Telephone Encounter - Yessica Tinoco APRN.CNP - 09/30/2022 12:49 PM EDT Tried to reach the patient but not able. Spoke to the patient's regarding IVC filter removal. The patient needs to see vascular medicine provider and have another US DVT in order to remove his IVC filter. The expressed understanding. Order for US DVT placed. Sent a message to the patient via [employer] to schedule US DVT and have follow up appt with vascular medicine. Yessica Tinoco APRN.CHELSIE documented in this encounterSamaritan North Health Center07-10-2023 History of Present illness Narrative* Bhavna Villatoro RN - 09/07/2022 4:05 PM EDT pcp agrees with information * Bhavna Villatoro RN - 09/07/2022 11:57 AM EDT patient had inr completed at [facility] patients inr is 2.0 (patients inr range is 2.0-3.0) patient is currently taking 7.5mg Thurs,Sat and 5mg all other days patients last dose change was on 08/03/22 due to a high level of 3.2 (dose at that time was 7.5mg Tues,Thurs,Sat and 5mg all other days) patient has had no changes in medication and no missed doses and no change in diet Advised patient to continue on the same dose(s) and that they would only be contacted regarding dosage and follow up instructions after review with provider, if a change is needed. Written instructions given and patient verbalized understanding. Presently scheduled in 4 weeks (10/06/22) for follow up INR. documented in this encounterSamaritan [facility] Center06-27-2023 History of Present illness Narrative* Bhavna Villatoro RN - 08/25/2022 5:17 PM EDT pcp agrees with information * Bhavna Villatoro RN - 08/25/2022 9:45 AM EDT patient had inr completed at [facility] patients inr is 1.8 (patients inr range is 2.0-3.0) patient is currently taking 7.5mg Thurs,Sat and 5mg all other days patients last dose change was on 08/03/22 due to a high level of 3.2 (dose at that time was 7.5mg Tues,Thurs,Sat and 5mg all other days) patient has had no changes in medication and no missed doses and no change in diet FYI- patient had an increase in greens this past week Advised patient to continue on the same dose(s) and that they would only be contacted regarding dosage and follow up instructions after review with provider, if a change is needed. Written instructions given and patient verbalized understanding. Presently scheduled in 2 weeks (09/08/22) for follow up INR since level is just slightly low but most likely due to the change in diet last week documented in this encounterSamaritan [facility] Center06-13-2023 History of Present illness Narrative* Bhavna Villatoro RN - 08/11/2022 4:30 PM EDT pcp agrees with information * Bhavna Villatoro RN - 08/11/2022 2:22 PM EDT patient had inr completed at [facility] patients inr is 2.5 (patients inr range is 2.0-3.0) patient is currently taking 7.5mg Thurs,Sat and 5mg all other days patients last dose change was on 08/03/22 due to a high level of 3.2 (dose at that time was 7.5mg Tues, Thurs Sat and 5mg all other days) patient has had no changes in medication except for coumadin and no missed doses and no change in diet Advised patient to continue on the same dose(s) and that they would only be contacted regarding dosage and follow up instructions after review with provider, if a change is needed. Written instructions given and patient verbalized understanding. Presently scheduled in 2 weeks (08/25/22)for follow up INR since this is the first normal reading since dose change documented in this encounterSamaritan [facility] Center06-05-2023 History of Present illness Narrative* Bhavna Villatoro RN - 08/03/2022 5:03 PM EDT pcp agrees with recommendation PATIENT NOTIFIED OF INFORMATION * Bhavna Villatoro RN - 08/03/2022 12:17 PM EDT patient had inr completed at [facility] patients inr is 3.2 (patients inr range is 2.0-3.0) patient is currently taking 7.5mg Tues,Thurs,Sat and 5mg all other days patients last dose change was on 07/28/22 due to a low level of 1.8 (dose at that time was 7.5mg Wedand 5mg all other days) patient has had no changes in medication except for coumadin an no missed doses and no change in diet Recommended that patient change to 7.5mg Thurs,Sat and 5mg all other days and recheck inr level in 1 week Patient has been scheduled for a 1 week follow up inr on 08/11/22 documented in this encounterSamaritan [facility] Center06-05-2023 Miscellaneous Notes* Telephone Encounter - Bhavna Villatoro RN - 08/03/2022 12:24 PM EDT Patient is a new patient to the [facility] and we are needing new standing orders for testing. Orders have been pended for review and file if able. CC only needs called if orders cannot be filed. Thanks documented in this encounterSamaritan North Health Center05-30-2023 Miscellaneous Notes* Telephone Encounter - Norm Parker APRN.CNP - 07/28/2022 9:59 AM EDT Noted, will watch for INR results from today and adjust accordingly. * Telephone Encounter - Don Feldman LPN - 07/28/2022 9:10 AM EDT Spoke with patient and he did stop the Lovenox on Wednesday and was taking 5 mg of coumadin all weekend. Patient states that he will have INR drawn this am. Has noticed increase rectal bleeding since starting warfarin but not so much for concerns of anemia. * Telephone Encounter - Caitlyn Guidry MD - 07/25/2022 12:09 PM EDT He needs to stop the lovenox right away Would like him to take only 2.5 mgs of coumadin today and resume previous dose from tomorrow .l dose from tomorrow Would like next inr check on Wednesday or Wednesday Regards, Caitlyn Guidry MD * Telephone Encounter - Cony Raygoza RN - 07/25/2022 11:16 AM EDT Call placed to patient to discuss [facility] message in regards to INR 3.1 and hemorrhaging. Patient reports that he had major bowel surgery done 4 months ago and has an ileostomy currently. Patient reports that the bleeding that he is having has been on-going since the surgery but gets better then worse. Currently patient reports several times a day he has rectal bleeding that is brightred in color and fills the toilet paper when wiping. He said he can feel the trickle and then knowsto go to the BR. He reports the bleeding doesn't fill the toilet bowl. Surgeon is aware of this blee ding and in order to fix it patient would have to undergo another major surgery but patient is not a candidate. Patient is on Lovenox injections 80 mg twice daily for DVTs to leg. Patient reports that he was told by Norm Parker when his INR reached 3 he should discontinue the lovenox injections. Notified patient that he should follow the instructions given by Norm if that is what she recommends and follow up with vascular surgery for rectal bleeding as well. Patient continues on Coumadin 5 mg daily. Patient requests on-call provider review for any further recommendation. When should patient have INR rechecked? Cony Raygoza RN documented in this encounterSamaritan North [facility] Center05-10-2023 Miscellaneous Notes* Telephone Encounter - Ginger Ingram LPN - 07/08/2022 4:37 PM EDT Phoned Vicki at [facility] and went over notes from Norm Parker ELECTRICAL MECHANICAL TECHNICIAN with understanding. * Telephone Encounter - Norm Parker APRN.CNP - 07/08/2022 3:33 PM EDT Ok for the 2 times weekly. * Telephone Encounter - Ginger Ingram LPN - 07/08/2022 3:28 PM EDT Vicki from [facility] calling said with patient office notes from yesterday the ELECTRICAL MECHANICAL TECHNICIAN says on average patient changes ostomy bag 1-2 times weekly but depends on the week up to 4 times a week. Theycan only give the patient ostomy supplies for 2 times weekly, unless the office notes are changed to say he changes ostomy bag 4 times weekly. Please advise documented in this encounterSamaritan North Health Center05-08-2023 Miscellaneous Notes* Telephone Encounter - Coral Charles RN - 07/06/2022 3:53 PM EDT Patient has appointment with Norm on 07/07 and will discuss with her then. Coral Charles RN documented in this encounterSamaritan North Health Center03-28-2023 Miscellaneous Notes* Telephone Encounter - Jenna Sevilla LPN - 05/26/2022 10:27 AM EDT Letter placed in pre-stamped/addressed envelope that was left off by patient. To be mailed out today. Patient aware. Jenna Sevilla LPN * Telephone Encounter - Katy Faust MD - 05/25/2022 3:16 PM EDT See if letter is okay for patient * Telephone Encounter - Whitney Dykes LPN - 05/25/2022 12:35 PM EDT Patient stopped into the office today and dropped off [facility] Juror excuse form. Patient has filled it but needs letter signed by primary excusing patient from jury duty. Patient states he was dx with cancer and recently had procedure done. He doesn't feel like he could sit through court due to discomfort and he is having to go to the bedroom frequently. Please mail form and letter back to [facility] Jury Commission with enclosed envelope. Form is at nurse's pod documented in this encounterSamaritan North Health Center03-22-2023 History of Present illness Narrative* Ramiro Cheung MD - 05/20/2022 3:40 PM EDT COLORECTAL SURGERY Follow-up May 19, 2022 Chief complaint: attention ileostomy HPI: Jai Luna is a 72 year old male originally referred by Dr Oneill for the surgical evaluation ofa rectal mass. Brief history: Jai underwent a colonoscopy with Dr Oneill on 03.20.21 due to a change in bowel habits. He was found to have a partially obstructing mass in the rectum - biopsies of this revealed submucosa with chronic inflammation, histiocytes, and rare atypical cells, not diagnostic. MRI rectum showed T3dN+, CT C/A/P was negative for metastatic disease. CEA has not been done yet. His case was presented to [facility] where it was recommended to proceed with danielle cut biopsy, which was done and revealed Invasive moderately differentiated squamous cell carcinoma. He completed Modified Charlene chemoradiation on Jul 21 2021, completed restaging in August, and was presented to [facility]. It was recommended that he follow up in three months to assess response to determine if he can proceed with watch and wait or should have surgery. He had this follow up on 12.10.2021 and was presented to [facility] on 12.17.2021 where it was recommended that due to persistent radiographic evidence of tumor regrowth he should proceed with surgery and CT scans for full staging. He is now s/p robotic LAR with DLI on 01.27.[address] Cheung. He is scheduled for DLI closure on 06.04.2022. 01.27.2022 S/P robotic laparoscopic low anterior resection with colorectal anastomosis (EEA 31) with intraoperative angiogram (firefly) with diverting loop ileostomy and flexible sigmoidoscopy (negative leak test) PATHOLOGY FINAL DIAGNOSIS A-B. Sigmoid colon and rectum, low anterior resection: - No residual/recurrent cancer (see synoptic). - No tumor in twelve lymph nodes (0/12). 12.17.2021 RECS Tumor board discussion and recommendation: Persistent radiographic evidence of tumor regrowth. Proceed with staging CT c/a/p; so long as no evident of distant recurrence, proceed with surgery. 12.10.2021 MRI rectum IMPRESSION: Predominantly fibrosis at the site of the mid-rectal mass, but with some T2 intermediate signal in the rectal wall suspicious for residual tumor. Treated tumor/fibrosis at the site of prior EMVI. Fibrosis abuts the posterior mesorectal fascia. No lymphadenopathy. Since 09/17/2021, post treatment primary tumor assessment: Incomplete response (likely residual tumor). mrTRG: Grade 3 - Moderate response Suspicious Mesorectal lymph nodes: No. Suspicious Extramesorectal lymph nodes: No. 12.10.2021 flex sig Findings: A 20 mm scar was found in the mid rectum. No residual polyp tissue was seen. Biopsies for histology were taken with a cold forceps for evaluation. Impression: - Scar in the mid rectum. Biopsied. Pathology Rectum, scar in med rectum, biopsy: - Rectal mucosa with focal hyperplastic changes. - Negative for dysplasia. 09/24/2021 TB recs Overall clinical assessment of treatment response: Near-complete response Tumor board discussion and recommendation: Good response, near complete response. Recommend follow-up in 3 months again to reassess Discussion: near complete response. Follow-up in 3 months again to assess response CEA 4.11.22 2.2 09.17.21 MRI rectum IMPRESSION: Since 04/09/2021, post treatment primary tumor assessment: Moderate response in the posterior primarily mid rectal mass with residual tumor. Treated T2 dark tumor deposit superior to the dominant mass as described. Persistent EVMI and right mesorectal fascia involvement. mrTRG: Grade 3 - Moderate response Suspicious Mesorectal lymph nodes: No. Suspicious Extramesorectal lymph nodes: No. Posttreatment MRI stage: T3N0 09.17.21 flex sig (IMAGES IN APPT NOTE - BEFORE AND AFTER COMPARISON) Findings: on MARIAJOSE- there was a firm hardness posteriorly in the rectum on flexible sigmoidoscopy, there was a small ulcer and white scar where the tumor used to be, however no mass visualised today Impression: - No specimens collected 05/21/21 TB RECS Other Discussion: Rectal SCC. Modified Charlene for now Aggressive tms RECTAL SCC might need Proctectomy subsequently PT called and expecting a call from [facility]. After initial visit at [facility] likely will get the treatment in [place] and come back for surgery if indicated. 05.06.2021 s/p Exam under anesthesia with flexible sigmoidoscopy (it is a firm fixed mass in the mid rectum submucosally and retroperitoneally located. This was Danielle-Cut biopsied, frozen section sent toPathology PATHOLOGY FINAL DIAGNOSIS A. Rectum, mass, biopsy: - At least high-grade squamous intraepithelial lesion (HSIL), with focal features suspicious for invasion (see comment). B. Rectum, mass, danielle-cut biopsy #1: - Invasive moderately differentiated squamous cell carcinoma (see comment). C. Rectum, mass, danielle-cut biopsy #2: - Invasive moderately differentiated squamous cell carcinoma (see comment). D. Rectum, mass, danielle-cut biopsy #3: - Invasive moderately differentiated squamous cell carcinoma (see comment). 04/09/21 MRI rectum IMPRESSION: 5 CM ECCENTRIC MID RECTAL MASS WITH EMVI AND TUMOR CONTACTING/ABUTTING THE MRF ITSELF. SINGLY SMALL SUSPICIOUS MESORECTAL LYMPH NODE. Although histologic results were previously inconclusive, presuming this is a rectal adenocarcinoma, the synoptic staging would be as below. Stage: T3d N+ MRF: Involved (tumor margin within 1 mm of MRF Sphincter involvement: No. Suspicious extra mesorectal lymph nodes: None. EMVI: Yes. 04/09/21 CT Chest IMPRESSION: 1. No convincing findings of metastatic disease in the thorax. No significant thoracic lymph node enlargement. 03/21/2021 CT A/P IMPRESSION: Rectal mass consistent with colonoscopy findings. Hepatic and renal cysts 03/20/2021 Colonoscopy Findings: A frond-like/villous partially obstructing large mass was found in the rectum. The mass was non-circumferential. In addition, its diameter measured three mm. No bleeding was present. Biopsies were taken with a cold forceps for histology. A 15 mm polyp was found in the cecum. The polyp was carpet-like. The polyp was removed with a cold snare. Resection and retrieval were complete. The exam was otherwise without abnormality. Impression: - Likely malignant partially obstructing tumor in the rectum. Biopsied. Patient will require a CT scan of the abdomen and pelvis with IV and p.o. contrast - One 15 mm polyp in the cecum,This was biopsied with cold biopsies. . This was a cluster of polyps that likely represent a villous adenoma. They are going to require saline lift technique to be removed.. - The examination was otherwise normal. Pathology FINAL DIAGNOSIS 1. Cecal polyp, biopsy (A) - Tubular adenoma. 2. Rectal mass, biopsy (B) - Submucosa with chronic inflammation, histiocytes, and rare atypical cells, not diagnostic. See comment. COMMENT The mucosa of this biopsy is essentially normal. However, within the submucosa, there is an admixture of lymphocytes, histiocytes, and rare atypical cells of uncertain significance. Immunohistochemical stains reveal that some of the cells appear to stain for cytokeratin AE1/AE3, raising strong consideration that these could be epithelial in nature. An immunostain for CAM5.2 is less definitive. The cells do not stain for S-100 protein, and many of the cells stain for CD68, but these are consistent with nonneoplastic histiocytes. Thus, although this is worrisome for an underlying carcinoma, this biopsy is not felt to be diagnostic. Physical Exam: Ht 167.6 cm (5' 6") Wt 68.9 kg (152 lb) BMI 24.53 kg/m General - awake, alert, no acute distress Abdominal - soft, NT ND Assessment Medical Decision Making: Assessment & Diagnosis: Jai Luna is a 72 year old male who presents for preoperative evaluation for DLI reversal. GGEshows presacral collection. Will proceed with EUA and flexible sigmoidoscopy. Data Reviewed: Tests & Documents Reviewed/ordered: Review of prior notes from [facility] Review of Imaging: CT Abdomen, CT Pelvis, Gastrografin enema I have independently interpreted: CT Abdomen, CT Pelvis, Gastrografin enema I have discussed Jai Luna's treatment plan and/or results with patient and partner. Treatment plan: - Proceed with EUA and flex sig will discuss with patient postoperatively regarding plan of care moving forward after EUA for further evaluation of the area. patient agreeable to proceed with this plan, consent signed today for procedure Risk of morbidity, mortality and/or complications of treatment plan: high documented in this encounterSamaritan North Health [facility] History of Present illness Narrative* Mary Anne Pierre RN - 05/20/2022 3:03 PM EDT ET/WOCN Nursing Consult Topic: ET/WOCN Consultation Note ET Outcome: Patient seen in the outpatient clinic accompanied to see Dr. Cheung and [facility] nursing for discussion about stoma closure. No issues with pouching. There was small amount of irritant derm noted. Current pouching system remains appropriate. Patient not able to get stoma closure at thistime. ET's Next Scheduled Visit: as needed Stoma Type: Loop ileostomy Diameter: slightly smaller than 1" Location: RLQ Protrusion: Budded Mucosal condition and color: Red and moist Mucocutaneous junction Intact Peristomal Skin: Erythema Location of Skin Impairment: mild circumferential Peristomal contour: Combination Rounded superior to stoma with subtle depression inferior to stoma Supportive Tissue: Semisoft Character of output: Liquid green effluent Emptying frequency per day: 5-6x Current pouching system: 1" Coloplast SenSura LINDA (1-piece) Soft Convex Opaque Pouch, stomahesive paste Current wearing time: 1 day. Good seal Recommendations: Skin Care: Shave peristomal skin as needed, Dust skin with stomahesive powder followed by 3M Cavilon Skin prep Pouching System: Same system applied (used patient's supplies) Wear Time: 3-4 days is the goal Midline Abdominal Incision: Healed scar Comment: N/A Time Increment: 45 minutes Mary Anne Pierre RN, BSN, CWOCN documented [facility] Instructions* Patient Instructions* Terry Balderrama MD - 05/20/2022 12:23 PM EDT PLEASE PLAN TO HOLD ELIQUIS FOR 4 DAYS PRIOR TO SURGERY. SCHEDULE ULTRASOUND OF THE LEGS IN THE [facility] THE RESULTS OF THE ULTRASOUND WILL DETERMINE THE BLOOD THINNER MANAGEMENT AFTER DISCHARGE. THIS IS TO BE DETERMINED. NO PLANS TO REMOVE THE FILTER UNTIL AFTER THE SURGERY. I WILL ADVISE FURTHER. PLAN TO SCHEDULE 6 WEEKS FOLLOW UP AFTER YOUR SURGERY WITH ME documented in this encounterSam[facility] History of Present illness Narrative* Terry Balderrama MD - 05/20/2022 12:09 PM EDT Images from the original note were not included. [facility] [place] [facility] Department of Cardiovascular Medicine SECTION OF VASCULAR MEDICINE OUTPATIENT VISIT DATE May 20, 2022 OUTPATIENT VISIT TYPE ESTABLISHED Follow up regarding: history of VTE, IVC filter, preoperative evaluation Patient is accompanied by his . Allergies: is allergic to cat dander, clindamycin, and codeine. Medications: Current Outpatient Medications Medication Sig apixaban (ELIQUIS) 5 mg tab(s) Take 1 tablet by mouth twice daily. atorvastatin (LIPITOR) 40 mg tablet Take 1 tablet by mouth daily at bedtime. For cholesterol per [facility]. coenzyme Q10 (COENZYME Q-10) 100 mg cap capsule Take 100 mg by mouth once daily. Cholecalciferol, Vitamin D3, 50 mcg (2,000 unit) cap Take 1 capsule by mouth two times a week. acetaminophen (TYLENOL) 500 mg tablet Take 1-2 tablets by mouth every 6 hours as needed for pain. No current facility-administered medications for this visit. Review of history: 72yoM with HTN, HLD and complex PMHx including : _ hx of stage 3 SCC of the rectum s/p chemoradiation, s/p robotic laparoscopic lower quadrant resection with colorectal anastomosis and diversion loop ileostomy on 01/27/2022. 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 S/p US guided paracentesis evaluation of perisplenic/perigastric hematoma and hemoperitoneum with 3L blood evacuated _ 02/12/2022 provoked bilateral segmental-subsegmental PE and bilateral calf DVT with chronic appearing changes in the R popliteal vein despite of VTE prophylaxis. Treated with IV UFH to enoxaparin 02/12-02/16/22 _ 02/16/2022 s/p IVC filter due to interval increase in abdominal hematoma _ 03/02/2022 submassive high risk PE with progression of bilateral PE with new filling defects in thedistal R and L main pulmonary arteries. PESI score 122, class IV. New findings of extensive DVT L CIV through calf veins and R external iliac through femoral veins and a second soleal vein. While offanticoagulation. Status post aspiration thrombectomy of pulmonary arteries, mechanical IVC and right common iliac vein thrombectomy, IVC filter retrieval and placement 03/03/2022 _ discharged on 03/10/2022 on enoxaparin 80 mg BID , transitioned to Eliquis 5 mg BID 03/23/2022 _ type II myocardial infarction and acute diastolic congestive heart failure 01/2022 in the settingof critical illness in patient with hx of CABG in the late , s/p PCIs, previously on Plavix outpatient Last visit 03/23/2022 Continue therapeutic anticoagulation to complete minimum of 3 months of anticoagulation since the most recent VTE Duration of anticoagulation to be ultimately determined. Considering clinical stability, it is reasonable to transition the anticoagulation from weight based enoxaparin to Eliquis 5 mg BID. Rx provided. Patient will inform if planned for procedures or surgeries in the future; I will assist with perioperative anticoagulation management. We discussed importance of monitoring for s/s of VTE, bleeding as well as GI function (vomiting, increased ostomy output) and prompt evaluation if symptomatic. IVC filter retrieval will be arranged in the future. Subjective: Interval history: ED visits or hospitalizations: no New symptoms or concerns: no No swelling, pain, redness, increased warmth or other sign of DVT. No chest pain, SOB, palpitations, lightheadedness or other signs of PE. Few weeks ago had an episode of bleeding from the rectum, which looked fresh. Surgical team was aware. Last week had similar episode lasting for 1 day and resolved. Current anticoagulation Eliquis 5 mg BID Change in medications: no Objective: BP 111/74 (BP Site: Left Arm, BP Position: Sitting, BP Cuff Size: Regular Adult) Pulse 87 Ht 167.6 cm (5' 6") Wt 68.9 kg (152 lb) SpO2 98% BMI 24.53 kg/m General: Alert and oriented, in no acute distress, pleasant mood. Skin: Healthy, intact, no ulcerations, no rashes. HEENT: Head normocephalic, extraocular muscles intact, sclera anicteric, neck supple, no JVD, no carotid bruit. Cardiovascular: Heart has a regular rate and rhythm without murmur. Respiratory: Lungs clear auscultation bilaterally. Gastrointestinal: Abdomen soft and nontender. No abdominal bruit or palpable mass. Musculoskeletal: No cyanosis or clubbing. Peripheral vascular: Dorsalis pedis and posterior tibial pulses palpable bilaterally. Feet and toeswarm pink and well perfused. Lower extremities: no edema, erythema or tenderness. Labs Component Latest Ref Rng & Units 05/20/2022 WBC 3.70 - 11.00 k/uL 8.73 RBC 4.20 - 6.00 m/uL 3.97 (L) Hemoglobin 13.0 - 17.0 g/dL 12.4 (L) Hematocrit 39.0 - 51.0 % 40.3 MCV 80.0 - 100.0 fL 101.5 (H) MCH 26.0 - 34.0 pg 31.2 MCHC 30.5 - 36.0 g/dL 30.8 RDW-CV 11.5 - 15.0 % 14.7 Platelet Count 150 - 400 k/uL 372 MPV 9.0 - 12.7 fL 9.8 Neut% % 70.2 Abs Neut (ANC) 1.45 - 7.50 k/uL 6.13 Lymph% % 16.5 Abs Lymph 1.00 - 4.00 k/uL 1.44 Overton% % 9.4 Abs Overton <0.87 k/uL 0.82 Eosin% % 1.3 Abs Eosin <0.46 k/uL 0.11 Baso% % 0.9 Abs Baso <0.11 k/uL 0.08 Immature Gran % % 1.7 IMMATURE GRANS (ABS) <0.10 k/uL 0.15 (H) NRBC /100 WBC 0.0 Absolute nRBC <0.01 k/uL <0.01 DTYPE Auto Protein, Total 6.3 - 8.0 g/dL 7.1 Albumin 3.9 - 4.9 g/dL 4.3 Calcium 8.5 - 10.2 mg/dL 9.7 Bilirubin, Total 0.2 - 1.3 mg/dL 0.2 Alkaline Phosphatase 38 - 113 U/L 91 AST 14 - 40 U/L 41 (H) ALT 10 - 54 U/L 48 Glucose 74 - 99 mg/dL 105 (H) BUN 9 - 24 mg/dL 25 (H) Creatinine 0.73 - 1.22 mg/dL 1.13 Sodium 136 - 144 mmol/L 141 Potassium 3.7 - 5.1 mmol/L 4.9 Chloride 97 - 105 mmol/L 108 (H) CO2 22 - 30 mmol/L 22 Anion Gap 9 - 18 mmol/L 11 eGFR >=60 mL/min/1.73m 69 Imaging Contrast enema May 20, 2022 IMPRESSION: LARGE ANASTOMOTIC LEAK WITH A PRESACRAL CAVITY. PROBABLE ISCHEMIC CHANGE IN THE DISTAL 7-8 CM OF THE DISTAL COLON. Assessment/plan: (Z86.711) History of pulmonary embolism (primary encounter diagnosis) Plan: US LEG VEIN DVT [facility] (Z86.718) Personal history of DVT (deep vein thrombosis) Plan: US LEG VEIN DVT [facility] (Z51.81, Z79.01) Anticoagulation management encounter Plan: US LEG VEIN DVT [facility] (Z95.828) S/P IVC filter (Z01.810) Preoperative vascular examination (C20) Rectal cancer (HCC) 72yoM with hx of stage 3 SCC of the rectum s/p chemoradiation (completed 05/21/2021), s/p robotic laparoscopic lower quadrant resection with colorectal anastomosis and diversion loop ileostomy on 01/27/2022 (surgical Path: no residual/recurrent cancer, no tumor in [address] LN), complex postoperative course summarized in HPI presents for hx of VTE and IVC filter, s/p pulmonary/IVC and iliac thrombectomy, anticoagulation management and preoperative evaluation prior to reversal of ostomy on 06/04/[address] Cheung. No s/s of acute VTE on exam today. Current anticoagulation: Eliquis 5 mg BID. No contraindications for anticoagulaiton. Summary of evaluation and recommendations: Continue current anticoagulation with Eliquis 5 mg BID with plan to hold for 4 days prior to surgery on 06/04/2022 Schedule bilateral lower extremity duplex US prior to surgery to evaluate thrombus burden If clot is resolved, plan pharmacologic VTE prophylaxis during hospitalization and extend for 5 wkspostop. If residual thrombosis, plan to transition to therapeutic anticoagulation on discharge. Duration oftherapy to be further advised. Recommend pharmaco-mechanical VTE prophylaxis during hospitalization. Further anticoagulation recommendations to be determined based on US results. IVC filter removal to be further coordinated postoperatively I will continue following the patient; plan FU 6 wks following discharge. TERRY BALDERRAMA MD addendum: Contrast enema results noted. CORS note: EUA and flexible sigmoidoscopy Will further discuss timing of the procedure and will adjust the plan accordingly. TERRY BALDERRAMA MD CC: MD Ramiro Feliciano MD documented in this encounterSam[facility]03-22-2023 Instructions* Patient Instructions* Abundio Prado APRN.ZINA HOLGUIN - 05/20/2022 10:09 AM EDT PATIENT PREOPERATIVE INSTRUCTIONS Ramiro Cheung MD has scheduled you for your procedure at this surgery center: [facility] Scheduling Office: [phone] --[address] [place] [address]. Please read below carefully for your personalized instructions. Dietary Restrictions: - No solid food after midnight. - You may have 12 ounces of clear liquids (water, clear juices such as apple juice or gatorade, carbonated beverages, clear tea, black coffee, jello) until 2 hours before scheduled arrival at facility. Medications: Unless instructed differently below, stay on all of your medications until your surgery. Approved medications to take the morning of surgery with a sip of water: No medication If you take any medications for erectile dysfunction-Cialis (Tadalafil), Levitra, Staxyn (Vardenafil) Viagra (Sildenenafil please do not take these for 48 hours before surgery. If you start any new medications after today's visit, please contact the surgeon's office. Blood Thinning Medications: - Stop NSAIDS (Ibuprofen, Advil, Aleve, Motrin, Celebrex, Mobic, etc.) 7 days before surgery, as directed by your surgeon. - Stop Aspirin 7 days before surgery, as directed by your surgeon. - Stop Vitamin E, ALL multi-vitamins, herbals and dietary supplements 7 days before surgery. - You may take Tylenol (Acetaminophen) or any of your pain medications that do not contain aspirin or NSAIDS as needed. Important Reminders: - Candy, mints, and tobacco products are NOT permitted the morning of surgery. - Hearing aids, dentures and glasses may be worn the morning of surgery. - NO jewelry, body piercings, makeup, hairpins or contacts are to be worn the day of surgery. If you develop symptoms such as a fever, cold, or flu, or have other changes to your health within TWO DAYS of scheduled surgery or the morning of surgery, please contact the surgery center above. Personal Belongings: -Please have photo ID and insurance cards. -If you do not have a copy of advance directives on file with us, please bring a copy with you on the day of surgery. - Leave ALL valuables and money at home or with family members. For Outpatient Procedures: - YOU MUST HAVE A RESPONSIBLE REGULATORY SUBMISSIONS SPECIALIST TAKE YOU HOME. A ROLLER MECHANIC OR PLASTIC DESIGN APPLIER CANNOT BE MADE A RESPONSIBLE REGULATORY SUBMISSIONS SPECIALIST. - We recommend that a responsible person stays with you overnight to take care of you. - You cannot stay in a hotel alone after outpatient surgery. You will not be permitted to have yoursurgery, if you do not have someone to take care of you. Arrival Time for Surgery: - To obtain your arrival time for surgery, call your physician's office the day before your surgery. - If your surgery is scheduled for Wednesday, call the Wednesday before. Your surgeon s vibrator operator will tell you what time to call the office. - If you have not reached the departmental vibrator operator by 5 P.M., call [phone] after 5 P.M. the day before your surgery. Please be aware that emergency situations arise, which may delay or change your surgical time. If this happens, we will notify you as soon as possible and regret any inconvenience. If you already have an Advance Directive, please fax a copy to [phone] or email to for it to be added to your chart. If you do not have an Advance Directive, you can find the appropriate form and more information at [email or web address]. We recommend that youcomplete the Advance Directive form found on the website and bring it with you the day of your surgery. It can be witnessed and scanned into your chart that day. DORIS Prado APRN.CNP, DNP documented in this encounterSam[facility]03-22-2023 History and physical note * Abundio Prado APRN.CNP, DNP - 05/20/2022 10:00 AM EDT HISTORY AND PHYSICAL EXAMINATION SERVICE DATE: 05/18/2022 SERVICE TIME: 9:53 AM PRIMARY CARE PHYSICIAN: Katy Faust MD REASON FOR VISIT: Jai Luna is a 72 year old male who is scheduled for CLOSURE ILEOSTOMY at the request of Dr. Jarad Cheung for consultation. My final recommendation will be communicated back to the requesting physician by way of shared medical record or letter. The patient has the following: ACTIVE PROBLEM LIST Acoustic Neuroma (Hcc) Atherosclerosis of Coronary Artery Bypass Graft Bilateral Carotid Artery Stenosis Cervical Radiculopathy Dyslipidemia Hearing Loss History of Cardiac Catheterization History of Myocardial Infarction Status Post Coronary Artery Bypass Graft Rectal Malignant Neoplasm (Hcc) Rectal Cancer (Hcc) Ileostomy in Place (Hcc) Finesse (Acute Kidney Injury) (Hcc) Malnutrition of Mild Degree (Hcc) Urinary Retention Hypokalemia Pulmonary Embolism (Hcc) Pulmonary Embolism and Infarction (Hcc) Pre-Op Evaluation Subjective CHIEF COMPLAINT: Pre-Op Evaluation HPI: Jai Luna is a 72 year old male with history of rectal adenocarcinoma diagnosed April 2021 status post chemotherapy, robotic low anterior resection with colorectal anastomosis plus diverting loop ileostomy on January 27, 2022. Patient is tolerating fluid and having good output. He is scheduled for the above-mentioned procedure for management. He presents to [facility] today for preop exam. Denies fevers, chills, nausea, vomiting, abdominal pain, chest pain, and SOB. Patient is scheduled for the above procedure on 06/04/2022. 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 coronary artery bypass graft 01/18/2013 Bilateral carotid artery stenosis 04/30/2021 Coronary atherosclerosis of unspecified type of vessel, seneca or graft Coronary artery disease Diverticulosis of colon (without mention of hemorrhage) Dyslipidemia 01/16/2013 History of transfusion Hypertension Rectal malignant neoplasm (HCC) 05/29/2021 Rectal mass PAST SURGICAL HISTORY Procedure Laterality Date COLONOSCOPY 03/20/2021 COLONOSCOPY FLX DX W/COLLJ SPEC WHEN PFRMD 08/24/2007 Colonoscopy CORONARY ARTERY BYP W/VEIN & ARTERY GRAFT 3 VEIN 03/01/1994 CABG, three grafts EYE SURGERY HX HEART SURGERY HX PERC TRANSL COR ANGIO 10/31/2003 Percutaneous Transluminal Coronary Angio Status PROSTATE SURGERY HX STRABISMUS RECESSION/RESCJ 1 [facility] Strabismus surgery TONSILLECTOMY HX TONSILLECTOMY PRIMARY/SECONDARY <AGE 12 Tonsillectomy VASCULAR SURGERY PROCEDURE FAMILY HISTORY Problem Relation Age of Onset Heart Father Emphysema Mother Emphysema Sister Anesthesia Problems No Family History SOCIAL HISTORY: Social History Tobacco Use Smoking status: Former Packs/day: 1.00 Years: 30.00 Pack years: 30.00 Types: Cigarettes Quit date: 01/29/2000 Years since quittin.3 Smokeless tobacco: Never Vaping Use Vaping Use: Never used Substance Use Topics Alcohol use: Not Currently Comment: rarely Drug use: No Prior to Admission medications as of 05/20/22 1008 Medication Sig Last Dose Taking apixaban (ELIQUIS) 5 mg tab(s) Take 1 tablet by mouth twice daily. Taking Yes atorvastatin (LIPITOR) 40 mg tablet Take 1 tablet by mouth daily at bedtime. For cholesterol per [facility]. Taking Yes coenzyme Q10 (COENZYME Q-10) 100 mg cap capsule Take 100 mg by mouth once daily. Taking Yes Cholecalciferol, Vitamin D3, 50 mcg (2,000 unit) cap Take 1 capsule by mouth two times a week. Taking Yes acetaminophen (TYLENOL) 500 mg tablet Take 1-2 tablets by mouth every 6 hours as needed for pain. Taking Yes No medication comments found. ALLERGIES Allergen Reactions Clindamycin GI Upset Codeine GI Upset COVID VACCINATION STATUS: Not vaccinated, prior infection REVIEW OF SYSTEMS: General: Unintentional weight loss 50 pounds following splenic aneurysm repair 01/2022. 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 Neuro: No history of TIA's, stroke, FUEL AGENT tumor, impaired sensorium, hemiplegia, paraplegia or quadraplegia. No neurological symptoms or problems. Respiratory: No history of current cough or dyspnea, or pneumonia in the past 6 weeks. No history of respiratory/pulmonary symptoms or problems. 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 : No history of dysuria, frequency or incontinence,, stones or chronic kidney disease Endocrine: No history of diabetes. Has not taken steroids within the past 30 days. No history of endocrinological symptoms or problems. Hematology: + Pulmonary embolism DVT provoked in the setting of critical illness during hospitalization. - on Eliquis -Status post mechanical thrombectomy right common iliac vein, mechanical thrombectomy pulmonary arteries and mechanical thrombectomy of IVC. - IVC filter placement February 16, 2022. -Follows with vascular medicine here at [facility] - scheduled to see vascular, Dr. Terry Balderrama today 05/20/2022. Oncology: See HPI Psych: No history of psychiatric symptoms or problems. Musculoskeletal: Improving weakness of bilateral lower extremity. Skin: Negative for lesions, rash and itching. Objective PHYSICAL EXAM: VITALS: BP 111/74 Pulse 87 Temp (Src) 97 (Temporal) Ht 5' 6" (1.68m) Wt 152 lb (68.9kg) SpO2 98% BMI 24.55 kg/(m^2). General: Alert and oriented. Hearing aid noted to RIGHT ear. Skin: Normal color, no rash, no lesions. HEENT: EOM, pupils equal, round and reactive. Cardiovascular: Normal S1 & S2, no rubs, murmurs or gallops. No JVD. Pulse regular. Lungs: Normal breath sounds, no wheezes or crackles. Abdomen: Soft, non-tender, no rigidity., Positive bowel sounds, Stoma, RIGHT lower abdominal quadrant. Extremities: No deformity, no edema or tenderness, no joint swelling or clubbing. Neurological: Normal cognition and motor skills. Pulses: Radial pulses; left 2+ / right 2+. Diagnostic tests reviewed for today's visit: Lab Value Units Date High Low HB 13.3 g/dL 04/06/2022 17.0 13.0 HCT 43.2 % 04/06/2022 51.0 39.0 WBC 8.48 k/uL 04/06/2022 11.00 3.70 PLT 478 k/uL 04/06/2022 400 150 NA 136 mmol/L 04/22/2022 144 136 K 4.5 mmol/L 04/22/2022 5.1 3.7 GLUC 94 mg/dL 04/22/2022 99 74 BUN 23 mg/dL 04/22/2022 24 9 CREAT 1.04 mg/dL 04/22/2022 1.22 0.73 PTSEC 12.8 sec 03/02/2022 13.0 9.7 INR 1.3 no uni* 03/02/2022 1.3 0.9 APTT 70.9 sec 03/07/2022 32.4 23.0 ALT 30 U/L 04/06/2022 54 10 AST 32 U/L 04/06/2022 40 14 TBILI 0.3 mg/dL 04/06/2022 1.3 0.2 TSH No results within date range. Lab Value Units Date High Low HCGQT No results within date range. UHCG No results within date range. HCG, BODY* No results within date range. Lab Value Units Date High Low ABORHD No results within date range. ABSCREEN No results within date range. No results found for: HBA1C Most recent EKG: Diagnosis: NORMAL SINUS RHYTHM NORMAL ECG Confirmed by WINTER BROOKS MD ([id number]) on 03/15/2022 8:20:19 PM Most recent Echo Impression CONCLUSIONS: - Technically difficult exam due to body habitus. - Exam indication: Limited for Pulmonary Embolism - The left ventricle is small. Left ventricular systolic function is hyperdynamic. EF = 73 5% (2D 4-ch.) There is a small midcavitary gradient measuring 16 mmHg. - The right ventricle is normal in size. Right ventricular systolic function is normal. RV poorly seen but appears grossly normal in limited views. - Similar hypoechoic lesion noted in liver - Exam was compared with the prior CC echocardiographic exam performed on 02/13/2022. Grossly similar with limited views. Most recent XR COLON SINGLE CONTRAST IMPRESSION: LARGE ANASTOMOTIC LEAK WITH A PRESACRAL CAVITY. PROBABLE ISCHEMIC CHANGE IN THE DISTAL 7-8 CM OF THE DISTAL COLON. 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 Atherosclerosis of coronary artery bypass graft - History of coronary artery disease status post CABG in 1989 with multiple PCI's the most recent being in 2017. -Most recent echocardiogram from March 03, 2022 shows left ejection fraction of 73% to 78%. -Patient denies any anginal symptoms. -Follows with cardiology routinely, last seen March 2022. Pulmonary embolism and infarction (HCC) - History of pulmonary embolism and DVT -Denies any shortness of breath, pain, swelling of extremities. -Provoked in the setting of critical illness during hospitalization. -Patient is on Eliquis. -Patient is scheduled to see Dr. Balderrama regarding preop instructions for Eliquis today May 20, 2022. Bilateral carotid artery stenosis - Ultrasound of carotid from June 2020 showed left internal and external carotid arteries with 50 to69% stenosis. -Patient denies any symptoms related to TIA or CVA. METS: Walk indoors, such as around the house (1.75 METs) Do light work around the house, such as dusting or washing dishes (2.70 METs) Take care of self; that is eating, dressing, bathing, using the toilet (2.75 METs) Patient denies any chest pain or undue shortness of breath with the above physical activity. ASA Class: 3 ANESTHESIA FINDINGS: Intubation History: No history of difficult intubation Significant Anesthesia Considerations: None Airway Exam: General: Normal appearance Mallampati Score is CLASS I ULBT: Class I - Lower incisors can bite the upper lip above the latrice line Neck: Normal appearance and function, Distance from hyoid to mentum during neck extension is at least 3 finger breaths Mouth: Normal tongue size and Mouth opening greater than 2 finger breaths Dentition: Intact and Implants, missing teeth Airway History: No history of difficult intubation STOP BANG Score: Criteria: Hypertension Age over 50 (72 year old) Male gender Score = 3 PLAN - This patient is optimally prepared for surgery pending LABS and EKG. - Awaiting appointment today with [facility] regarding pre-op instructions for Eliquis. CONSULTS: Patient does not require consults for optimization at this time. The Following Tests/Procedures Have Been Initiated: CMP, CBC + differential, type and screen, confirm blood type ordered. Planned Anesthetic: General Instructions Given to Patient: Instructions located in the after visit summary. Patient given verbal and written preop instructions and voices comprehension and compliance. This document has been created with use of voice recognition technology. It may contain inaccuracies, misspellings, inaccurate syntax or word sense that escaped review. SIGNATURE: Abundio Prado APRN.ZINA HOLGUIN PATIENT NAME: Jai Luna DATE: May 18, 2022 TIME: 9:53 AM [facility] History of Present illness Narrative* Jie Almaraz, RT(R) - 05/20/2022 8:20 AM EDT Radiology Service Progress Note PATIENT NAME: Jai Luna DATE OF SERVICE: May 20, 2022 TIME: 8:51 AM PATIENT IDENTITY VERIFICATION COMPLETED USING TWO (2) IDENTIFIERS: Name and Date of confirmedby patient verbally. FALL SCREENING: Has the patient had 2 falls in the last year or 1 fall with injury or currently using an Ambulatory Assistive Device (Walker, Cane, Wheelchair, Crutches, etc.)? No PATIENT GENDER DATA: Male PATIENT RELEVANT IMPLANT DATA REVIEWED: Not Applicable RADIOLOGY DEPARTMENT: General X-ray: Exam(s) Completed: GI/ Procedure(s): Barium enema with watersoluable contrast PERIPHERAL IV DATA: Not applicable SIGNED BY: RT Abena(R) May 20, 2022 8:51 AM documented in this encounterSam[facility] History of Past illness Narrative* Problem Noted Date Resolved Date Pre-op evaluation 05/18/2022 07/07/2022 Inadequate pain control 02/16/2022 02/19/20 Last Assessment & Plan: Assessment: poorly controlled abd pain since admission. Reports pain is so bad he wants to pursue comfort care as he does not want to be alive anymore. Has episodes of acute pain then becomes somnolent after opioid administration. PLAN: - shceduled tylenol - PRN Oxy 5 q6 -fent prn -palliative med consult, appreciate recs Hypophosphataemia 2022 02/24/2022 Last Assessment & Plan: PLAN: - replete per SICU order set Malnutrition of mild degree 02/05/202204/30 Last Assessment & Plan: Corpak placed 02/17 Obesity, Class II, BMI 35-39.9 02/05/2022 0 04/06/2022 FINESSE (acute kidney injury) 02/03/20222022 Last Assessment & Plan: Assessment: Admitted with elevated Cr 1.56. Uptrending despite fluid resuscitation. Possible element of renovascular congestion vs malperfusion 02/03,02/04 Lasix challenge appropriate 02/05 FINESSE resolved with good UOP 02/06 Good UOP, FINESSE resolved. Given O2 requirement might still be volume up. 02/07 Good UOP, FINESSE resolved. 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 Prior to arrival he received 4L crystals, 1 unit whole blood and 2 unit pRBCs. Started on levo and vaso MTP initiated, Level 1 for heating 02/16: pt presented with distended abdomen, tenderness, guarding and hypotension. PLAN: - Transfuse as indicated - Labs with lyte repletion - hold subQ hep per primary - No therapeutic AC for 4 weeks Respiratory insufficiency 02/01/20222021 Last Assessment & Plan: Assessment: extubated 02/05 Mild b/l GOYO atelectasis, satting 98-99% on RA 02/06 Requiring 2L NC to maintain O2 sat 97-99%. PLAN: -- Wean o2 as able -- Encourage OOB with PT, IS -- IV Lasix 40mg Postoperative pain 01/28/2022 02/24/2022 Last Assessment & Plan: Assessment: Admitted 02/01 with worsening abdominal pain s/p robotic low anterior resection with colorectal anastomosis and diverting loop ileostomy on 01/27. More abdominal pain this morning, but abdomen soft, Hgb stable, not hypotensive, afebrile and leukocytosis resolving - no data points to suggest intraabd bleed or new infection Pain improving likely 2/2 to hematoma PLAN: -- prn tylenol and oxy for pain - abdominal binder - palliative consulted, appreciate recs Obesity, Class I, BMI 30-34.9 01/26/2022 Essential hypertension 04/30/2021 Last Assessment & Plan: Assessment: takes metoprolol 25mg BID PLAN: - start metop 12.5 BID documented as of this encounter (statuses as of 07/09/2022) [facility] History of Past illness Narrative* Problem Noted Date Resolved Date Pre-op evaluation 05/18/2022 07/07/2022 Inadequate pain control 02/16/2022 02/19/20 Last Assessment & Plan: Assessment: poorly controlled abd pain since admission. Reports pain is so bad he wants to pursue comfort care as he does not want to be alive anymore. Has episodes of acute pain then becomes somnolent after opioid administration. PLAN: - shceduled tylenol - PRN Oxy 5 q6 -fent prn -palliative med consult, appreciate recs Hypophosphataemia 2022 02/24/2022 Last Assessment & Plan: PLAN: - replete per SICU order set Malnutrition of mild degree 02/05/202204/30 Last Assessment & Plan: Corpak placed 02/17 Obesity, Class II, BMI 35-39.9 02/05/2022 0 04/06/2022 FINESSE (acute kidney injury) 02/03/20222022 Last Assessment & Plan: Assessment: Admitted with elevated Cr 1.56. Uptrending despite fluid resuscitation. Possible element of renovascular congestion vs malperfusion 02/03,02/04 Lasix challenge appropriate 02/05 FINESSE resolved with good UOP 02/06 Good UOP, FINESSE resolved. Given O2 requirement might still be volume up. 02/07 Good UOP, FINESSE resolved. 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 Prior to arrival he received 4L crystals, 1 unit whole blood and 2 unit pRBCs. Started on levo and vaso MTP initiated, Level 1 for heating 02/16: pt presented with distended abdomen, tenderness, guarding and hypotension. PLAN: - Transfuse as indicated - Labs with lyte repletion - hold subQ hep per primary - No therapeutic AC for 4 weeks Respiratory insufficiency 02/01/20222021 Last Assessment & Plan: Assessment: extubated 02/05 Mild b/l GOYO atelectasis, satting 98-99% on RA 02/06 Requiring 2L NC to maintain O2 sat 97-99%. PLAN: -- Wean o2 as able -- Encourage OOB with PT, IS -- IV Lasix 40mg Postoperative pain 01/28/2022 02/24/2022 Last Assessment & Plan: Assessment: Admitted 02/01 with worsening abdominal pain s/p robotic low anterior resection with colorectal anastomosis and diverting loop ileostomy on 01/27. More abdominal pain this morning, but abdomen soft, Hgb stable, not hypotensive, afebrile and leukocytosis resolving - no data points to suggest intraabd bleed or new infection Pain improving likely 2/2 to hematoma PLAN: -- prn tylenol and oxy for pain - abdominal binder - palliative consulted, appreciate recs Obesity, Class I, BMI 30-34.9 01/26/2022 Essential hypertension 04/30/2021 Last Assessment & Plan: Assessment: takes metoprolol 25mg BID PLAN: - start metop 12.5 BID documented as of this encounter (statuses as of 07/28/2022) [facility] History of Past illness Narrative* Problem Noted Date Resolved Date Pre-op evaluation 05/18/2022 07/07/2022 Inadequate pain control 02/16/2022 02/19/20 22 Last Assessment & Plan: Assessment: poorly controlled abd pain since admission. Reports pain is so bad he wants to pursue comfort care as he does not want to be alive anymore. Has episodes of acute pain then becomes somnolent after opioid administration. PLAN: - shceduled tylenol - PRN Oxy 5 q6 -fent prn -palliative med consult, appreciate recs Hypophosphataemia 2022 02/24/2022 Last Assessment & Plan: PLAN: - replete per SICU order set Malnutrition of mild degree 02/05/2022/05/2022 Last Assessment & Plan: Corpak placed 02/17 Obesity, Class II, BMI 35-39.9 02/05/2022 0 04/06/2022 FINESSE (acute kidney injury) 02/03/20222022 Last Assessment & Plan: Assessment: Admitted with elevated Cr 1.56. Uptrending despite fluid resuscitation. Possible element of renovascular congestion vs malperfusion 02/03,02/04 Lasix challenge appropriate 02/05 FINESSE resolved with good UOP 02/06 Good UOP, FINESSE resolved. Given O2 requirement might still be volume up. 02/07 Good UOP, FINESSE resolved. 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 Prior to arrival he received 4L crystals, 1 unit whole blood and 2 unit pRBCs. Started on levo and vaso MTP initiated, Level 1 for heating 02/16: pt presented with distended abdomen, tenderness, guarding and hypotension. PLAN: - Transfuse as indicated - Labs with lyte repletion - hold subQ hep per primary - No therapeutic AC for 4 weeks Respiratory insufficiency 02/01/20222021 Last Assessment & Plan: Assessment: extubated 02/05 Mild b/l GOYO atelectasis, satting 98-99% on RA 02/06 Requiring 2L NC to maintain O2 sat 97-99%. PLAN: -- Wean o2 as able -- Encourage OOB with PT, IS -- IV Lasix 40mg Postoperative pain 01/28/2022 02/24/2022 Last Assessment & Plan: Assessment: Admitted 02/01 with worsening abdominal pain s/p robotic low anterior resection with colorectal anastomosis and diverting loop ileostomy on 01/27. More abdominal pain this morning, but abdomen soft, Hgb stable, not hypotensive, afebrile and leukocytosis resolving - no data points to suggest intraabd bleed or new infection Pain improving likely 2/2 to hematoma PLAN: -- prn tylenol and oxy for pain - abdominal binder - palliative consulted, appreciate recs Obesity, Class I, BMI 30-34.9 01/26/2022 Essential hypertension 04/30/2021 Last Assessment & Plan: Assessment: takes metoprolol 25mg BID PLAN: - start metop 12.5 BID documented as of this encounter (statuses as of 08/04/2022) [facility] History of Past illness Narrative* Problem Noted Date Resolved Date Pre-op evaluation 05/18/2022 07/07/2022 Inadequate pain control 02/16/2022 02/19/20 Last Assessment & Plan: Assessment: poorly controlled abd pain since admission. Reports pain is so bad he wants to pursue comfort care as he does not want to be alive anymore. Has episodes of acute pain then becomes somnolent after opioid administration. PLAN: - shceduled tylenol - PRN Oxy 5 q6 -fent prn -palliative med consult, appreciate recs Hypophosphataemia 2022 02/24/2022 Last Assessment & Plan: PLAN: - replete per SICU order set Malnutrition of mild degree 02/05/202204/30 Last Assessment & Plan: Corpak placed 02/17 Obesity, Class II, BMI 35-39.9 02/05/2022 0 04/06/2022 FINESSE (acute kidney injury) 02/03/20222022 Last Assessment & Plan: Assessment: Admitted with elevated Cr 1.56. Uptrending despite fluid resuscitation. Possible element of renovascular congestion vs malperfusion 02/03,02/04 Lasix challenge appropriate 02/05 FINESSE resolved with good UOP 02/06 Good UOP, FINESSE resolved. Given O2 requirement might still be volume up. 02/07 Good UOP, FINESSE resolved. 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 Prior to arrival he received 4L crystals, 1 unit whole blood and 2 unit pRBCs. Started on levo and vaso MTP initiated, Level 1 for heating 02/16: pt presented with distended abdomen, tenderness, guarding and hypotension. PLAN: - Transfuse as indicated - Labs with lyte repletion - hold subQ hep per primary - No therapeutic AC for 4 weeks Respiratory insufficiency 02/01/20222021 Last Assessment & Plan: Assessment: extubated 02/05 Mild b/l GOYO atelectasis, satting 98-99% on RA 02/06 Requiring 2L NC to maintain O2 sat 97-99%. PLAN: -- Wean o2 as able -- Encourage OOB with PT, IS -- IV Lasix 40mg Postoperative pain 01/28/2022 02/24/2022 Last Assessment & Plan: Assessment: Admitted 02/01 with worsening abdominal pain s/p robotic low anterior resection with colorectal anastomosis and diverting loop ileostomy on 01/27. More abdominal pain this morning, but abdomen soft, Hgb stable, not hypotensive, afebrile and leukocytosis resolving - no data points to suggest intraabd bleed or new infection Pain improving likely 2/2 to hematoma PLAN: -- prn tylenol and oxy for pain - abdominal binder - palliative consulted, appreciate recs Obesity, Class I, BMI 30-34.9 01/26/2022 Essential hypertension 04/30/2021 Last Assessment & Plan: Assessment: takes metoprolol 25mg BID PLAN: - start metop 12.5 BID documented as of this encounter (statuses as of 08/12/2022) [facility] of Past illness Narrative* Problem Noted Date Resolved Date Pre-op evaluation 05/18/2022 07/07/2022 Inadequate pain control 02/16/2022 02/19/20 Last Assessment & Plan: Assessment: poorly controlled abd pain since admission. Reports pain is so bad he wants to pursue comfort care as he does not want to be alive anymore. Has episodes of acute pain then becomes somnolent after opioid administration. PLAN: - shceduled tylenol - PRN Oxy 5 q6 -fent prn -palliative med consult, appreciate recs Hypophosphataemia 2022 02/24/2022 Last Assessment & Plan: PLAN: - replete per SICU order set Malnutrition of mild degree 02/05/202204/30 Last Assessment & Plan: Corpak placed 02/17 Obesity, Class II, BMI 35-39.9 02/05/2022 0 04/06/2022 FINESSE (acute kidney injury) 02/03/20222022 Last Assessment & Plan: Assessment: Admitted with elevated Cr 1.56. Uptrending despite fluid resuscitation. Possible element of renovascular congestion vs malperfusion 02/03,02/04 Lasix challenge appropriate 02/05 FINESSE resolved with good UOP 02/06 Good UOP, FINESSE resolved. Given O2 requirement might still be volume up. 02/07 Good UOP, FINESSE resolved. 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 Prior to arrival he received 4L crystals, 1 unit whole blood and 2 unit pRBCs. Started on levo and vaso MTP initiated, Level 1 for heating 02/16: pt presented with distended abdomen, tenderness, guarding and hypotension. PLAN: - Transfuse as indicated - Labs with lyte repletion - hold subQ hep per primary - No therapeutic AC for 4 weeks Respiratory insufficiency 02/01/20222021 Last Assessment & Plan: Assessment: extubated 02/05 Mild b/l GOYO atelectasis, satting 98-99% on RA 02/06 Requiring 2L NC to maintain O2 sat 97-99%. PLAN: -- Wean o2 as able -- Encourage OOB with PT, IS -- IV Lasix 40mg Postoperative pain 01/28/2022 02/24/2022 Last Assessment & Plan: Assessment: Admitted 02/01 with worsening abdominal pain s/p robotic low anterior resection with colorectal anastomosis and diverting loop ileostomy on 01/27. More abdominal pain this morning, but abdomen soft, Hgb stable, not hypotensive, afebrile and leukocytosis resolving - no data points to suggest intraabd bleed or new infection Pain improving likely 2/2 to hematoma PLAN: -- prn tylenol and oxy for pain - abdominal binder - palliative consulted, appreciate recs Obesity, Class I, BMI 30-34.9 01/26/2022 Essential hypertension 04/30/2021 Last Assessment & Plan: Assessment: takes metoprolol 25mg BID PLAN: - start metop 12.5 BID documented as of this encounter (statuses as of 08/17/2022) [facility] History of Past illness Narrative* Problem Noted Date Resolved Date Pre-op evaluation 05/18/2022 07/07/2022 Inadequate pain control 02/16/2022 02/19/20 Last Assessment & Plan: Assessment: poorly controlled abd pain since admission. Reports pain is so bad he wants to pursue comfort care as he does not want to be alive anymore. Has episodes of acute pain then becomes somnolent after opioid administration. PLAN: - shceduled tylenol - PRN Oxy 5 q6 -fent prn -palliative med consult, appreciate recs Hypophosphataemia 2022 02/24/2022 Last Assessment & Plan: PLAN: - replete per SICU order set Malnutrition of mild degree 02/05/2022/05/2022 Last Assessment & Plan: Corpak placed 02/17 Obesity, Class II, BMI 35-39.9 02/05/2022 0 04/06/2022 FINESSE (acute kidney injury) 02/03/20222022 Last Assessment & Plan: Assessment: Admitted with elevated Cr 1.56. Uptrending despite fluid resuscitation. Possible element of renovascular congestion vs malperfusion 02/03,02/04 Lasix challenge appropriate 02/05 FINESSE resolved with good UOP 02/06 Good UOP, FINESSE resolved. Given O2 requirement might still be volume up. 02/07 Good UOP, FINESSE resolved. 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 Prior to arrival he received 4L crystals, 1 unit whole blood and 2 unit pRBCs. Started on levo and vaso MTP initiated, Level 1 for heating 02/16: pt presented with distended abdomen, tenderness, guarding and hypotension. PLAN: - Transfuse as indicated - Labs with lyte repletion - hold subQ hep per primary - No therapeutic AC for 4 weeks Respiratory insufficiency 02/01/20222021 Last Assessment & Plan: Assessment: extubated 02/05 Mild b/l GOYO atelectasis, satting 98-99% on RA 02/06 Requiring 2L NC to maintain O2 sat 97-99%. PLAN: -- Wean o2 as able -- Encourage OOB with PT, IS -- IV Lasix 40mg Postoperative pain 01/28/2022 02/24/2022 Last Assessment & Plan: Assessment: Admitted 02/01 with worsening abdominal pain s/p robotic low anterior resection with colorectal anastomosis and diverting loop ileostomy on 01/27. More abdominal pain this morning, but abdomen soft, Hgb stable, not hypotensive, afebrile and leukocytosis resolving - no data points to suggest intraabd bleed or new infection Pain improving likely 2/2 to hematoma PLAN: -- prn tylenol and oxy for pain - abdominal binder - palliative consulted, appreciate recs Obesity, Class I, BMI 30-34.9 01/26/2022 Essential hypertension 04/30/2021 Last Assessment & Plan: Assessment: takes metoprolol 25mg BID PLAN: - start metop 12.5 BID documented as of this encounter (statuses as of 08/19/2022) [facility] History of Past illness Narrative* Problem Noted Date Resolved Date Pre-op evaluation 05/18/2022 07/07/2022 Inadequate pain control 02/16/2022 02/19/20 Last Assessment & Plan: Assessment: poorly controlled abd pain since admission. Reports pain is so bad he wants to pursue comfort care as he does not want to be alive anymore. Has episodes of acute pain then becomes somnolent after opioid administration. PLAN: - shceduled tylenol - PRN Oxy 5 q6 -fent prn -palliative med consult, appreciate recs Hypophosphataemia 2022 02/24/2022 Last Assessment & Plan: PLAN: - replete per SICU order set Malnutrition of mild degree 02/05/202204/30 Last Assessment & Plan: Corpak placed 02/17 Obesity, Class II, BMI 35-39.9 02/05/2022 0 04/06/2022 FINESSE (acute kidney injury) 02/03/20222022 Last Assessment & Plan: Assessment: Admitted with elevated Cr 1.56. Uptrending despite fluid resuscitation. Possible element of renovascular congestion vs malperfusion 02/03,02/04 Lasix challenge appropriate 02/05 FINESSE resolved with good UOP 02/06 Good UOP, FINESSE resolved. Given O2 requirement might still be volume up. 02/07 Good UOP, FINESSE resolved. 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 Prior to arrival he received 4L crystals, 1 unit whole blood and 2 unit pRBCs. Started on levo and vaso MTP initiated, Level 1 for heating 02/16: pt presented with distended abdomen, tenderness, guarding and hypotension. PLAN: - Transfuse as indicated - Labs with lyte repletion - hold subQ hep per primary - No therapeutic AC for 4 weeks Respiratory insufficiency 02/01/20222021 Last Assessment & Plan: Assessment: extubated 02/05 Mild b/l GOYO atelectasis, satting 98-99% on RA 02/06 Requiring 2L NC to maintain O2 sat 97-99%. PLAN: -- Wean o2 as able -- Encourage OOB with PT, IS -- IV Lasix 40mg Postoperative pain 01/28/2022 02/24/2022 Last Assessment & Plan: Assessment: Admitted 02/01 with worsening abdominal pain s/p robotic low anterior resection with colorectal anastomosis and diverting loop ileostomy on 01/27. More abdominal pain this morning, but abdomen soft, Hgb stable, not hypotensive, afebrile and leukocytosis resolving - no data points to suggest intraabd bleed or new infection Pain improving likely 2/2 to hematoma PLAN: -- prn tylenol and oxy for pain - abdominal binder - palliative consulted, appreciate recs Obesity, Class I, BMI 30-34.9 01/26/2022 Essential hypertension 04/30/2021 Last Assessment & Plan: Assessment: takes metoprolol 25mg BID PLAN: - start metop 12.5 BID documented as of this encounter (statuses as of 08/26/2022) [facility] of Past illness Narrative* Problem Noted Date Diagnosed Date Resolved Date Pre-op evaluation 05/18/2022 07/07/2022 Inadequate pain control 02/16/202201/30 Last Assessment & Plan: Assessment: poorly controlled abd pain since admission. Reports pain is so bad he wants to pursue comfort care as he does not want to be alive anymore. Has episodes of acute pain then becomes somnolent after opioid administration. PLAN: - shceduled tylenol - PRN Oxy 5 q6 -fent prn -palliative med consult, appreciate recs Hypophosphataemia 2022 02/24/2022 Last Assessment & Plan: PLAN: - replete per SICU order set Malnutrition of mild degree 02/05/2022 05/22/2022 Last Assessment & Plan: Corpak placed 02/17 Obesity, Class II, BMI 35-39.9 02/05/2022 04/06/2022 FINESSE (acute kidney injury) 02/03/2022 Last Assessment & Plan: Assessment: Admitted with elevated Cr 1.56. Uptrending despite fluid resuscitation. Possible element of renovascular congestion vs malperfusion 02/03,02/04 Lasix challenge appropriate 02/05 FINESSE resolved with good UOP 02/06 Good UOP, FINESSE resolved. Given O2 requirement might still be volume up. 02/07 Good UOP, FINESSE resolved. 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 Prior to arrival he received 4L crystals, 1 unit whole blood and 2 unit pRBCs. Started on levo and vaso MTP initiated, Level 1 for heating 02/16: pt presented with distended abdomen, tenderness, guarding and hypotension. PLAN: - Transfuse as indicated - Labs with lyte repletion - hold subQ hep per primary - No therapeutic AC for 4 weeks Respiratory insufficiency 02/01/2022 Last Assessment & Plan: Assessment: extubated 02/05 Mild b/l GOYO atelectasis, satting 98-99% on RA 02/06 Requiring 2L NC to maintain O2 sat 97-99%. PLAN: -- Wean o2 as able -- Encourage OOB with PT, IS -- IV Lasix 40mg Postoperative pain 01/28/2022 Last Assessment & Plan: Assessment: Admitted 02/01 with worsening abdominal pain s/p robotic low anterior resection with colorectal anastomosis and diverting loop ileostomy on 01/27. More abdominal pain this morning, but abdomen soft, Hgb stable, not hypotensive, afebrile and leukocytosis resolving - no data points to suggest intraabd bleed or new infection Pain improving likely 2/2 to hematoma PLAN: -- prn tylenol and oxy for pain - abdominal binder - palliative consulted, appreciate recs Obesity, Class I, BMI 30-34.9 01/26/2022 04/06/2022 Essential hypertension 04/30/202104/06 Last Assessment & Plan: Assessment: takes metoprolol 25mg BID PLAN: - start metop 12.5 BID documented as of this encounter (statuses as of 09/08/2022) [facility]03-20-2023 History of Past illness Narrative* Problem Noted Date Diagnosed Date Resolved Date Pre-op evaluation 05/18/2022 07/07/2022 Inadequate pain control 02/16/2022 12/03/2021 Last Assessment & Plan: Assessment: poorly controlled abd pain since admission. Reports pain is so bad he wants to pursue comfort care as he does not want to be alive anymore. Has episodes of acute pain then becomes somnolent after opioid administration. PLAN: - shceduled tylenol - PRN Oxy 5 q6 -fent prn -palliative med consult, appreciate recs Hypophosphataemia 2022 02/24/2022 Last Assessment & Plan: PLAN: - replete per SICU order set Malnutrition of mild degree 02/05/2022 05/22/2022 Last Assessment & Plan: Corpak placed 02/17 Obesity, Class II, BMI 35-39.9 02/05/2022 04/06/2022 FINESSE (acute kidney injury) 02/03/2022 Last Assessment & Plan: Assessment: Admitted with elevated Cr 1.56. Uptrending despite fluid resuscitation. Possible element of renovascular congestion vs malperfusion 02/03,02/04 Lasix challenge appropriate 02/05 FINESSE resolved with good UOP 02/06 Good UOP, FINESSE resolved. Given O2 requirement might still be volume up. 02/07 Good UOP, FINESSE resolved. 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 Prior to arrival he received 4L crystals, 1 unit whole blood and 2 unit pRBCs. Started on levo and vaso MTP initiated, Level 1 for heating 02/16: pt presented with distended abdomen, tenderness, guarding and hypotension. PLAN: - Transfuse as indicated - Labs with lyte repletion - hold subQ hep per primary - No therapeutic AC for 4 weeks Respiratory insufficiency 02/01/2022 Last Assessment & Plan: Assessment: extubated 02/05 Mild b/l GOYO atelectasis, satting 98-99% on RA 02/06 Requiring 2L NC to maintain O2 sat 97-99%. PLAN: -- Wean o2 as able -- Encourage OOB with PT, IS -- IV Lasix 40mg Postoperative pain 01/28/2022 Last Assessment & Plan: Assessment: Admitted 02/01 with worsening abdominal pain s/p robotic low anterior resection with colorectal anastomosis and diverting loop ileostomy on 01/27. More abdominal pain this morning, but abdomen soft, Hgb stable, not hypotensive, afebrile and leukocytosis resolving - no data points to suggest intraabd bleed or new infection Pain improving likely 04/02 to hematoma PLAN: -- prn tylenol and oxy for pain - abdominal binder - palliative consulted, appreciate recs Obesity, Class I, BMI 30-34.9 01/26/2022 04/06/2022 Essential hypertension 04/30/202104/06 Last Assessment & Plan: Assessment: takes metoprolol 25mg BID PLAN: - start metop 12.5 BID documented as of this encounter (statuses as of 09/30/2022) [facility]03-20-2023 History of Past illness Narrative* Problem Noted Date Diagnosed Date Resolved Date Pre-op evaluation 05/18/2022 07/07/2022 Inadequate pain control 02/16/202201/30 Last Assessment & Plan: Assessment: poorly controlled abd pain since admission. Reports pain is so bad he wants to pursue comfort care as he does not want to be alive anymore. Has episodes of acute pain then becomes somnolent after opioid administration. PLAN: - shceduled tylenol - PRN Oxy 5 q6 -fent prn -palliative med consult, appreciate recs Hypophosphataemia 2022 02/24/2022 Last Assessment & Plan: PLAN: - replete per SICU order set Malnutrition of mild degree 02/05/2022 05/22/2022 Last Assessment & Plan: Corpak placed 02/17 Obesity, Class II, BMI 35-39.9 02/05/2022 04/06/2022 FINESSE (acute kidney injury) 02/03/2022 Last Assessment & Plan: Assessment: Admitted with elevated Cr 1.56. Uptrending despite fluid resuscitation. Possible element of renovascular congestion vs malperfusion 02/03,02/04 Lasix challenge appropriate 02/05 FINESSE resolved with good UOP 02/06 Good UOP, FINESSE resolved. Given O2 requirement might still be volume up. 02/07 Good UOP, FINESSE resolved. 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 Prior to arrival he received 4L crystals, 1 unit whole blood and 2 unit pRBCs. Started on levo and vaso MTP initiated, Level 1 for heating 02/16: pt presented with distended abdomen, tenderness, guarding and hypotension. PLAN: - Transfuse as indicated - Labs with lyte repletion - hold subQ hep per primary - No therapeutic AC for 4 weeks Respiratory insufficiency 02/01/2022 Last Assessment & Plan: Assessment: extubated 02/05 Mild b/l GOYO atelectasis, satting 98-99% on RA 02/06 Requiring 2L NC to maintain O2 sat 97-99%. PLAN: -- Wean o2 as able -- Encourage OOB with PT, IS -- IV Lasix 40mg Postoperative pain 01/28/2022 Last Assessment & Plan: Assessment: Admitted 02/01 with worsening abdominal pain s/p robotic low anterior resection with colorectal anastomosis and diverting loop ileostomy on 01/27. More abdominal pain this morning, but abdomen soft, Hgb stable, not hypotensive, afebrile and leukocytosis resolving - no data points to suggest intraabd bleed or new infection Pain improving likely 2/2 to hematoma PLAN: -- prn tylenol and oxy for pain - abdominal binder - palliative consulted, appreciate recs Obesity, Class I, BMI 30-34.9 01/26/2022 04/06/2022 Essential hypertension 04/30/202104/06 Last Assessment & Plan: Assessment: takes metoprolol 25mg BID PLAN: - start metop 12.5 BID documented as of this encounter (statuses as of 09/30/2022) [facility]03-20-2023 History of Past illness Narrative* Problem Noted Date Diagnosed Date Resolved Date Pre-op evaluation 05/18/2022 07/07/2022 Inadequate pain control 02/16/202201/30 Last Assessment & Plan: Assessment: poorly controlled abd pain since admission. Reports pain is so bad he wants to pursue comfort care as he does not want to be alive anymore. Has episodes of acute pain then becomes somnolent after opioid administration. PLAN: - shceduled tylenol - PRN Oxy 5 q6 -fent prn -palliative med consult, appreciate recs Hypophosphataemia 2022 02/24/2022 Last Assessment & Plan: PLAN: - replete per SICU order set Malnutrition of mild degree 02/05/2022 05/22/2022 Last Assessment & Plan: Corpak placed 02/17 Obesity, Class II, BMI 35-39.9 02/05/2022 04/06/2022 FINESSE (acute kidney injury) 02/03/2022 Last Assessment & Plan: Assessment: Admitted with elevated Cr 1.56. Uptrending despite fluid resuscitation. Possible element of renovascular congestion vs malperfusion 02/03,02/04 Lasix challenge appropriate 02/05 FINESSE resolved with good UOP 02/06 Good UOP, FINESSE resolved. Given O2 requirement might still be volume up. 02/07 Good UOP, FINESSE resolved. 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 Prior to arrival he received 4L crystals, 1 unit whole blood and 2 unit pRBCs. Started on levo and vaso MTP initiated, Level 1 for heating 02/16: pt presented with distended abdomen, tenderness, guarding and hypotension. PLAN: - Transfuse as indicated - Labs with lyte repletion - hold subQ hep per primary - No therapeutic AC for 4 weeks Respiratory insufficiency 02/01/2022 Last Assessment & Plan: Assessment: extubated 02/05 Mild b/l GOYO atelectasis, satting 98-99% on RA 02/06 Requiring 2L NC to maintain O2 sat 97-99%. PLAN: -- Wean o2 as able -- Encourage OOB with PT, IS -- IV Lasix 40mg Postoperative pain 01/28/2022 Last Assessment & Plan: Assessment: Admitted 02/01 with worsening abdominal pain s/p robotic low anterior resection with colorectal anastomosis and diverting loop ileostomy on 01/27. More abdominal pain this morning, but abdomen soft, Hgb stable, not hypotensive, afebrile and leukocytosis resolving - no data points to suggest intraabd bleed or new infection Pain improving likely 2/2 to hematoma PLAN: -- prn tylenol and oxy for pain - abdominal binder - palliative consulted, appreciate recs Obesity, Class I, BMI 30-34.9 01/26/2022 04/06/2022 Essential hypertension 04/30/202104/06 Last Assessment & Plan: Assessment: takes metoprolol 25mg BID PLAN: - start metop 12.5 BID documented as of this encounter (statuses as of 10/02/2022) [facility]03-20-2023 History of Past illness Narrative* Problem Noted Date Diagnosed Date Resolved Date Pre-op evaluation 05/18/2022 07/07/2022 Inadequate pain control 02/16/2022 1203/2021 Last Assessment & Plan: Assessment: poorly controlled abd pain since admission. Reports pain is so bad he wants to pursue comfort care as he does not want to be alive anymore. Has episodes of acute pain then becomes somnolent after opioid administration. PLAN: - shceduled tylenol - PRN Oxy 5 q6 -fent prn -palliative med consult, appreciate recs Hypophosphataemia 2022 02/24/2022 Last Assessment & Plan: PLAN: - replete per SICU order set Malnutrition of mild degree 02/05/2022 05/22/2022 Last Assessment & Plan: Corpak placed 02/17 Obesity, Class II, BMI 35-39.9 02/05/2022 04/06/2022 FINESSE (acute kidney injury) 02/03/2022 Last Assessment & Plan: Assessment: Admitted with elevated Cr 1.56. Uptrending despite fluid resuscitation. Possible element of renovascular congestion vs malperfusion 02/03,02/04 Lasix challenge appropriate 02/05 FINESSE resolved with good UOP 02/06 Good UOP, FINESSE resolved. Given O2 requirement might still be volume up. 02/07 Good UOP, FINESSE resolved. 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 Prior to arrival he received 4L crystals, 1 unit whole blood and 2 unit pRBCs. Started on levo and vaso MTP initiated, Level 1 for heating 02/16: pt presented with distended abdomen, tenderness, guarding and hypotension. PLAN: - Transfuse as indicated - Labs with lyte repletion - hold subQ hep per primary - No therapeutic AC for 4 weeks Respiratory insufficiency 02/01/2022 Last Assessment & Plan: Assessment: extubated 02/05 Mild b/l GOYO atelectasis, satting 98-99% on RA 02/06 Requiring 2L NC to maintain O2 sat 97-99%. PLAN: -- Wean o2 as able -- Encourage OOB with PT, IS -- IV Lasix 40mg Postoperative pain 01/28/2022 Last Assessment & Plan: Assessment: Admitted 02/01 with worsening abdominal pain s/p robotic low anterior resection with colorectal anastomosis and diverting loop ileostomy on 01/27. More abdominal pain this morning, but abdomen soft, Hgb stable, not hypotensive, afebrile and leukocytosis resolving - no data points to suggest intraabd bleed or new infection Pain improving likely /2 to hematoma PLAN: -- prn tylenol and oxy for pain - abdominal binder - palliative consulted, appreciate recs Obesity, Class I, BMI 30-34.9 01/26/2022 04/06/2022 Essential hypertension 04/30/202104/06 Last Assessment & Plan: Assessment: takes metoprolol 25mg BID PLAN: - start metop 12.5 BID documented as of this encounter (statuses as of 10/21/2022) [facility]03-20-2023 History of Past illness Narrative* Problem Noted Date Diagnosed Date Resolved Date Pre-op evaluation 05/18/2022 07/07/2022 Inadequate pain control 02/16/202201/30 Last Assessment & Plan: Assessment: poorly controlled abd pain since admission. Reports pain is so bad he wants to pursue comfort care as he does not want to be alive anymore. Has episodes of acute pain then becomes somnolent after opioid administration. PLAN: - shceduled tylenol - PRN Oxy 5 q6 -fent prn -palliative med consult, appreciate recs Hypophosphataemia 2022 02/24/2022 Last Assessment & Plan: PLAN: - replete per SICU order set Malnutrition of mild degree 02/05/2022 05/22/2022 Last Assessment & Plan: Corpak placed 02/17 Obesity, Class II, BMI 35-39.9 02/05/2022 04/06/2022 FINESSE (acute kidney injury) 02/03/2022 Last Assessment & Plan: Assessment: Admitted with elevated Cr 1.56. Uptrending despite fluid resuscitation. Possible element of renovascular congestion vs malperfusion 02/03,02/04 Lasix challenge appropriate 02/05 FINESSE resolved with good UOP 02/06 Good UOP, FINESSE resolved. Given O2 requirement might still be volume up. 02/07 Good UOP, FINESSE resolved. 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 Prior to arrival he received 4L crystals, 1 unit whole blood and 2 unit pRBCs. Started on levo and vaso MTP initiated, Level 1 for heating 02/16: pt presented with distended abdomen, tenderness, guarding and hypotension. PLAN: - Transfuse as indicated - Labs with lyte repletion - hold subQ hep per primary - No therapeutic AC for 4 weeks Respiratory insufficiency 02/01/2022 Last Assessment & Plan: Assessment: extubated 02/05 Mild b/l GOYO atelectasis, satting 98-99% on RA 02/06 Requiring 2L NC to maintain O2 sat 97-99%. PLAN: -- Wean o2 as able -- Encourage OOB with PT, IS -- IV Lasix 40mg Postoperative pain 01/28/2022 Last Assessment & Plan: Assessment: Admitted 02/01 with worsening abdominal pain s/p robotic low anterior resection with colorectal anastomosis and diverting loop ileostomy on 01/27. More abdominal pain this morning, but abdomen soft, Hgb stable, not hypotensive, afebrile and leukocytosis resolving - no data points to suggest intraabd bleed or new infection Pain improving likely 2/2 to hematoma PLAN: -- prn tylenol and oxy for pain - abdominal binder - palliative consulted, appreciate recs Obesity, Class I, BMI 30-34.9 01/26/2022 04/06/2022 Essential hypertension 04/30/202104/06 Last Assessment & Plan: Assessment: takes metoprolol 25mg BID PLAN: - start metop 12.5 BID documented as of this encounter (statuses as of 11/04/2022) [facility]03-20-2023 History of Past illness Narrative* Problem Noted Date Diagnosed Date Resolved Date Pre-op evaluation 05/18/2022 07/07/2022 Inadequate pain control 02/16/202201/30 Last Assessment & Plan: Assessment: poorly controlled abd pain since admission. Reports pain is so bad he wants to pursue comfort care as he does not want to be alive anymore. Has episodes of acute pain then becomes somnolent after opioid administration. PLAN: - shceduled tylenol - PRN Oxy 5 q6 -fent prn -palliative med consult, appreciate recs Hypophosphataemia 2022 02/24/2022 Last Assessment & Plan: PLAN: - replete per SICU order set Malnutrition of mild degree 02/05/2022 05/22/2022 Last Assessment & Plan: Corpak placed 02/17 Obesity, Class II, BMI 35-39.9 02/05/2022 04/06/2022 FINESSE (acute kidney injury) 02/03/2022 Last Assessment & Plan: Assessment: Admitted with elevated Cr 1.56. Uptrending despite fluid resuscitation. Possible element of renovascular congestion vs malperfusion 02/03,02/04 Lasix challenge appropriate 02/05 FINESSE resolved with good UOP 02/06 Good UOP, FINESSE resolved. Given O2 requirement might still be volume up. 02/07 Good UOP, FINESSE resolved. 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 Prior to arrival he received 4L crystals, 1 unit whole blood and 2 unit pRBCs. Started on levo and vaso MTP initiated, Level 1 for heating 02/16: pt presented with distended abdomen, tenderness, guarding and hypotension. PLAN: - Transfuse as indicated - Labs with lyte repletion - hold subQ hep per primary - No therapeutic AC for 4 weeks Respiratory insufficiency 02/01/2022 Last Assessment & Plan: Assessment: extubated 02/05 Mild b/l GOYO atelectasis, satting 98-99% on RA 02/06 Requiring 2L NC to maintain O2 sat 97-99%. PLAN: -- Wean o2 as able -- Encourage OOB with PT, IS -- IV Lasix 40mg Postoperative pain 01/28/2022 Last Assessment & Plan: Assessment: Admitted 02/01 with worsening abdominal pain s/p robotic low anterior resection with colorectal anastomosis and diverting loop ileostomy on 01/27. More abdominal pain this morning, but abdomen soft, Hgb stable, not hypotensive, afebrile and leukocytosis resolving - no data points to suggest intraabd bleed or new infection Pain improving likely 2/2 to hematoma PLAN: -- prn tylenol and oxy for pain - abdominal binder - palliative consulted, appreciate recs Obesity, Class I, BMI 30-34.9 01/26/2022 04/06/2022 Essential hypertension 04/30/202104/06 Last Assessment & Plan: Assessment: takes metoprolol 25mg BID PLAN: - start metop 12.5 BID documented as of this encounter (statuses as of 11/04/2022) [facility]03-20-2023 History of Past illness Narrative* Problem Noted Date Diagnosed Date Resolved Date Pre-op evaluation 05/18/2022 07/07/2022 Inadequate pain control 02/16/2022 1203/2021 Last Assessment & Plan: Assessment: poorly controlled abd pain since admission. Reports pain is so bad he wants to pursue comfort care as he does not want to be alive anymore. Has episodes of acute pain then becomes somnolent after opioid administration. PLAN: - shceduled tylenol - PRN Oxy 5 q6 -fent prn -palliative med consult, appreciate recs Hypophosphataemia 2022 02/24/2022 Last Assessment & Plan: PLAN: - replete per SICU order set Malnutrition of mild degree 02/05/2022 05/22/2022 Last Assessment & Plan: Corpak placed 02/17 Obesity, Class II, BMI 35-39.9 02/05/2022 04/06/2022 FINESSE (acute kidney injury) 02/03/2022 Last Assessment & Plan: Assessment: Admitted with elevated Cr 1.56. Uptrending despite fluid resuscitation. Possible element of renovascular congestion vs malperfusion 02/03,02/04 Lasix challenge appropriate 02/05 FINESSE resolved with good UOP 02/06 Good UOP, FINESSE resolved. Given O2 requirement might still be volume up. 02/07 Good UOP, FINESSE resolved. 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 Prior to arrival he received 4L crystals, 1 unit whole blood and 2 unit pRBCs. Started on levo and vaso MTP initiated, Level 1 for heating 02/16: pt presented with distended abdomen, tenderness, guarding and hypotension. PLAN: - Transfuse as indicated - Labs with lyte repletion - hold subQ hep per primary - No therapeutic AC for 4 weeks Respiratory insufficiency 02/01/2022 Last Assessment & Plan: Assessment: extubated 02/05 Mild b/l GOYO atelectasis, satting 98-99% on RA 02/06 Requiring 2L NC to maintain O2 sat 97-99%. PLAN: -- Wean o2 as able -- Encourage OOB with PT, IS -- IV Lasix 40mg Postoperative pain 01/28/2022 Last Assessment & Plan: Assessment: Admitted 02/01 with worsening abdominal pain s/p robotic low anterior resection with colorectal anastomosis and diverting loop ileostomy on 01/27. More abdominal pain this morning, but abdomen soft, Hgb stable, not hypotensive, afebrile and leukocytosis resolving - no data points to suggest intraabd bleed or new infection Pain improving likely 04/02 to hematoma PLAN: -- prn tylenol and oxy for pain - abdominal binder - palliative consulted, appreciate recs Obesity, Class I, BMI 30-34.9 01/26/2022 04/06/2022 Essential hypertension 04/30/202104/06 Last Assessment & Plan: Assessment: takes metoprolol 25mg BID PLAN: - start metop 12.5 BID documented as of this encounter (statuses as of 11/04/2022) [facility]03-20-2023 History of Past illness Narrative* Problem Noted Date Diagnosed Date Resolved Date Pre-op evaluation 05/18/2022 07/07/2022 Inadequate pain control 02/16/202201/30 Last Assessment & Plan: Assessment: poorly controlled abd pain since admission. Reports pain is so bad he wants to pursue comfort care as he does not want to be alive anymore. Has episodes of acute pain then becomes somnolent after opioid administration. PLAN: - shceduled tylenol - PRN Oxy 5 q6 -fent prn -palliative med consult, appreciate recs Hypophosphataemia 2022 02/24/2022 Last Assessment & Plan: PLAN: - replete per SICU order set Malnutrition of mild degree 02/05/2022 05/22/2022 Last Assessment & Plan: Corpak placed 02/17 Obesity, Class II, BMI 35-39.9 02/05/2022 04/06/2022 FINESSE (acute kidney injury) 02/03/2022 Last Assessment & Plan: Assessment: Admitted with elevated Cr 1.56. Uptrending despite fluid resuscitation. Possible element of renovascular congestion vs malperfusion 02/03,02/04 Lasix challenge appropriate 02/05 FINESSE resolved with good UOP 02/06 Good UOP, FINESSE resolved. Given O2 requirement might still be volume up. 02/07 Good UOP, FINESSE resolved. 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 Prior to arrival he received 4L crystals, 1 unit whole blood and 2 unit pRBCs. Started on levo and vaso MTP initiated, Level 1 for heating 02/16: pt presented with distended abdomen, tenderness, guarding and hypotension. PLAN: - Transfuse as indicated - Labs with lyte repletion - hold subQ hep per primary - No therapeutic AC for 4 weeks Respiratory insufficiency 02/01/2022 Last Assessment & Plan: Assessment: extubated 02/05 Mild b/l GOYO atelectasis, satting 98-99% on RA 02/06 Requiring 2L NC to maintain O2 sat 97-99%. PLAN: -- Wean o2 as able -- Encourage OOB with PT, IS -- IV Lasix 40mg Postoperative pain 01/28/2022 Last Assessment & Plan: Assessment: Admitted 02/01 with worsening abdominal pain s/p robotic low anterior resection with colorectal anastomosis and diverting loop ileostomy on 01/27. More abdominal pain this morning, but abdomen soft, Hgb stable, not hypotensive, afebrile and leukocytosis resolving - no data points to suggest intraabd bleed or new infection Pain improving likely 2/2 to hematoma PLAN: -- prn tylenol and oxy for pain - abdominal binder - palliative consulted, appreciate recs Obesity, Class I, BMI 30-34.9 01/26/2022 04/06/2022 Essential hypertension 04/30/202104/06 Last Assessment & Plan: Assessment: takes metoprolol 25mg BID PLAN: - start metop 12.5 BID documented as of this encounter (statuses as of 11/05/2022) [facility]03-20-2023 History of Past illness Narrative* Problem Noted Date Diagnosed Date Resolved Date Pre-op evaluation 05/18/2022 07/07/2022 Inadequate pain control 02/16/202201/30 Last Assessment & Plan: Assessment: poorly controlled abd pain since admission. Reports pain is so bad he wants to pursue comfort care as he does not want to be alive anymore. Has episodes of acute pain then becomes somnolent after opioid administration. PLAN: - shceduled tylenol - PRN Oxy 5 q6 -fent prn -palliative med consult, appreciate recs Hypophosphataemia 2022 02/24/2022 Last Assessment & Plan: PLAN: - replete per SICU order set Malnutrition of mild degree 02/05/2022 05/22/2022 Last Assessment & Plan: Corpak placed 02/17 Obesity, Class II, BMI 35-39.9 02/05/2022 04/06/2022 FINESSE (acute kidney injury) 02/03/2022 Last Assessment & Plan: Assessment: Admitted with elevated Cr 1.56. Uptrending despite fluid resuscitation. Possible element of renovascular congestion vs malperfusion 02/03,02/04 Lasix challenge appropriate 02/05 FINESSE resolved with good UOP 02/06 Good UOP, FINESSE resolved. Given O2 requirement might still be volume up. 02/07 Good UOP, FINESSE resolved. 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 Prior to arrival he received 4L crystals, 1 unit whole blood and 2 unit pRBCs. Started on levo and vaso MTP initiated, Level 1 for heating 02/16: pt presented with distended abdomen, tenderness, guarding and hypotension. PLAN: - Transfuse as indicated - Labs with lyte repletion - hold subQ hep per primary - No therapeutic AC for 4 weeks Respiratory insufficiency 02/01/2022 Last Assessment & Plan: Assessment: extubated 02/05 Mild b/l GOYO atelectasis, satting 98-99% on RA 02/06 Requiring 2L NC to maintain O2 sat 97-99%. PLAN: -- Wean o2 as able -- Encourage OOB with PT, IS -- IV Lasix 40mg Postoperative pain 01/28/2022 Last Assessment & Plan: Assessment: Admitted 02/01 with worsening abdominal pain s/p robotic low anterior resection with colorectal anastomosis and diverting loop ileostomy on 01/27. More abdominal pain this morning, but abdomen soft, Hgb stable, not hypotensive, afebrile and leukocytosis resolving - no data points to suggest intraabd bleed or new infection Pain improving likely 2/2 to hematoma PLAN: -- prn tylenol and oxy for pain - abdominal binder - palliative consulted, appreciate recs Obesity, Class I, BMI 30-34.9 01/26/2022 04/06/2022 Essential hypertension 04/30/202104/06 Last Assessment & Plan: Assessment: takes metoprolol 25mg BID PLAN: - start metop 12.5 BID documented as of this encounter (statuses as of 11/16/2022) [facility]03-20-2023 History of Past illness Narrative* Problem Noted Date Diagnosed Date Resolved Date Pre-op evaluation 05/18/2022 07/07/2022 Inadequate pain control 02/16/202201/30 Last Assessment & Plan: Assessment: poorly controlled abd pain since admission. Reports pain is so bad he wants to pursue comfort care as he does not want to be alive anymore. Has episodes of acute pain then becomes somnolent after opioid administration. PLAN: - shceduled tylenol - PRN Oxy 5 q6 -fent prn -palliative med consult, appreciate recs Hypophosphataemia 2022 02/24/2022 Last Assessment & Plan: PLAN: - replete per SICU order set Malnutrition of mild degree 02/05/2022 05/22/2022 Last Assessment & Plan: Corpak placed 02/17 Obesity, Class II, BMI 35-39.9 02/05/2022 04/06/2022 FINESSE (acute kidney injury) 02/03/2022 Last Assessment & Plan: Assessment: Admitted with elevated Cr 1.56. Uptrending despite fluid resuscitation. Possible element of renovascular congestion vs malperfusion 02/03,02/04 Lasix challenge appropriate 02/05 FINESSE resolved with good UOP 02/06 Good UOP, FINESSE resolved. Given O2 requirement might still be volume up. 02/07 Good UOP, FINESSE resolved. 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 Prior to arrival he received 4L crystals, 1 unit whole blood and 2 unit pRBCs. Started on levo and vaso MTP initiated, Level 1 for heating 02/16: pt presented with distended abdomen, tenderness, guarding and hypotension. PLAN: - Transfuse as indicated - Labs with lyte repletion - hold subQ hep per primary - No therapeutic AC for 4 weeks Respiratory insufficiency 02/01/2022 Last Assessment & Plan: Assessment: extubated 02/05 Mild b/l GOYO atelectasis, satting 98-99% on RA 02/06 Requiring 2L NC to maintain O2 sat 97-99%. PLAN: -- Wean o2 as able -- Encourage OOB with PT, IS -- IV Lasix 40mg Postoperative pain 01/28/2022 Last Assessment & Plan: Assessment: Admitted 02/01 with worsening abdominal pain s/p robotic low anterior resection with colorectal anastomosis and diverting loop ileostomy on 01/27. More abdominal pain this morning, but abdomen soft, Hgb stable, not hypotensive, afebrile and leukocytosis resolving - no data points to suggest intraabd bleed or new infection Pain improving likely /2 to hematoma PLAN: -- prn tylenol and oxy for pain - abdominal binder - palliative consulted, appreciate recs Obesity, Class I, BMI 30-34.9 01/26/2022 04/06/2022 Essential hypertension 04/30/202104/06 Last Assessment & Plan: Assessment: takes metoprolol 25mg BID PLAN: - start metop 12.5 BID documented as of this encounter (statuses as of 11/17/2022) [facility]03-20-2023 History of Past illness Narrative* Problem Noted Date Diagnosed Date Resolved Date Pre-op evaluation 05/18/2022 07/07/2022 Inadequate pain control 02/16/202201/30 Last Assessment & Plan: Assessment: poorly controlled abd pain since admission. Reports pain is so bad he wants to pursue comfort care as he does not want to be alive anymore. Has episodes of acute pain then becomes somnolent after opioid administration. PLAN: - shceduled tylenol - PRN Oxy 5 q6 -fent prn -palliative med consult, appreciate recs Hypophosphataemia 2022 02/24/2022 Last Assessment & Plan: PLAN: - replete per SICU order set Malnutrition of mild degree 02/05/2022 05/22/2022 Last Assessment & Plan: Corpak placed 02/17 Obesity, Class II, BMI 35-39.9 02/05/2022 04/06/2022 FINESSE (acute kidney injury) 02/03/2022 Last Assessment & Plan: Assessment: Admitted with elevated Cr 1.56. Uptrending despite fluid resuscitation. Possible element of renovascular congestion vs malperfusion 02/03,02/04 Lasix challenge appropriate 02/05 FINESSE resolved with good UOP 02/06 Good UOP, FINESSE resolved. Given O2 requirement might still be volume up. 02/07 Good UOP, FINESSE resolved. 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 Prior to arrival he received 4L crystals, 1 unit whole blood and 2 unit pRBCs. Started on levo and vaso MTP initiated, Level 1 for heating 02/16: pt presented with distended abdomen, tenderness, guarding and hypotension. PLAN: - Transfuse as indicated - Labs with lyte repletion - hold subQ hep per primary - No therapeutic AC for 4 weeks Respiratory insufficiency 02/01/2022 Last Assessment & Plan: Assessment: extubated 02/05 Mild b/l GOYO atelectasis, satting 98-99% on RA 02/06 Requiring 2L NC to maintain O2 sat 97-99%. PLAN: -- Wean o2 as able -- Encourage OOB with PT, IS -- IV Lasix 40mg Postoperative pain 01/28/2022 Last Assessment & Plan: Assessment: Admitted 02/01 with worsening abdominal pain s/p robotic low anterior resection with colorectal anastomosis and diverting loop ileostomy on 01/27. More abdominal pain this morning, but abdomen soft, Hgb stable, not hypotensive, afebrile and leukocytosis resolving - no data points to suggest intraabd bleed or new infection Pain improving likely 2/2 to hematoma PLAN: -- prn tylenol and oxy for pain - abdominal binder - palliative consulted, appreciate recs Obesity, Class I, BMI 30-34.9 01/26/2022 04/06/2022 Essential hypertension 04/30/202104/06 Last Assessment & Plan: Assessment: takes metoprolol 25mg BID PLAN: - start metop 12.5 BID documented as of this encounter (statuses as of 11/18/2022) [facility]03-20-2023 History of Past illness Narrative* Problem Noted Date Diagnosed Date Resolved Date Pre-op evaluation 05/18/2022 07/07/2022 Inadequate pain control 02/16/202201/30 Last Assessment & Plan: Assessment: poorly controlled abd pain since admission. Reports pain is so bad he wants to pursue comfort care as he does not want to be alive anymore. Has episodes of acute pain then becomes somnolent after opioid administration. PLAN: - shceduled tylenol - PRN Oxy 5 q6 -fent prn -palliative med consult, appreciate recs Hypophosphataemia 2022 02/24/2022 Last Assessment & Plan: PLAN: - replete per SICU order set Malnutrition of mild degree 02/05/2022 05/22/2022 Last Assessment & Plan: Corpak placed 02/17 Obesity, Class II, BMI 35-39.9 02/05/2022 04/06/2022 FINESSE (acute kidney injury) 02/03/2022 Last Assessment & Plan: Assessment: Admitted with elevated Cr 1.56. Uptrending despite fluid resuscitation. Possible element of renovascular congestion vs malperfusion 02/03,02/04 Lasix challenge appropriate 02/05 FINESSE resolved with good UOP 02/06 Good UOP, FINESSE resolved. Given O2 requirement might still be volume up. 02/07 Good UOP, FINESSE resolved. 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 Prior to arrival he received 4L crystals, 1 unit whole blood and 2 unit pRBCs. Started on levo and vaso MTP initiated, Level 1 for heating 02/16: pt presented with distended abdomen, tenderness, guarding and hypotension. PLAN: - Transfuse as indicated - Labs with lyte repletion - hold subQ hep per primary - No therapeutic AC for 4 weeks Respiratory insufficiency 02/01/2022 Last Assessment & Plan: Assessment: extubated 02/05 Mild b/l GOYO atelectasis, satting 98-99% on RA 02/06 Requiring 2L NC to maintain O2 sat 97-99%. PLAN: -- Wean o2 as able -- Encourage OOB with PT, IS -- IV Lasix 40mg Postoperative pain 01/28/2022 Last Assessment & Plan: Assessment: Admitted 02/01 with worsening abdominal pain s/p robotic low anterior resection with colorectal anastomosis and diverting loop ileostomy on 01/27. More abdominal pain this morning, but abdomen soft, Hgb stable, not hypotensive, afebrile and leukocytosis resolving - no data points to suggest intraabd bleed or new infection Pain improving likely 2/2 to hematoma PLAN: -- prn tylenol and oxy for pain - abdominal binder - palliative consulted, appreciate recs Obesity, Class I, BMI 30-34.9 01/26/2022 04/06/2022 Essential hypertension 04/30/202104/06 Last Assessment & Plan: Assessment: takes metoprolol 25mg BID PLAN: - start metop 12.5 BID documented as of this encounter (statuses as of 11/28/2022) [facility]03-20-2023 History of Past illness Narrative* Problem Noted Date Diagnosed Date Resolved Date Pre-op evaluation 05/18/2022 07/07/2022 Inadequate pain control 02/16/202201/30 Last Assessment & Plan: Assessment: poorly controlled abd pain since admission. Reports pain is so bad he wants to pursue comfort care as he does not want to be alive anymore. Has episodes of acute pain then becomes somnolent after opioid administration. PLAN: - shceduled tylenol - PRN Oxy 5 q6 -fent prn -palliative med consult, appreciate recs Hypophosphataemia 2022 02/24/2022 Last Assessment & Plan: PLAN: - replete per SICU order set Malnutrition of mild degree 02/05/2022 05/22/2022 Last Assessment & Plan: Corpak placed 02/17 Obesity, Class II, BMI 35-39.9 02/05/2022 04/06/2022 FINESSE (acute kidney injury) 02/03/2022 Last Assessment & Plan: Assessment: Admitted with elevated Cr 1.56. Uptrending despite fluid resuscitation. Possible element of renovascular congestion vs malperfusion 02/03,02/04 Lasix challenge appropriate 02/05 FINESSE resolved with good UOP 02/06 Good UOP, FINESSE resolved. Given O2 requirement might still be volume up. 02/07 Good UOP, FINESSE resolved. 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 Prior to arrival he received 4L crystals, 1 unit whole blood and 2 unit pRBCs. Started on levo and vaso MTP initiated, Level 1 for heating 02/16: pt presented with distended abdomen, tenderness, guarding and hypotension. PLAN: - Transfuse as indicated - Labs with lyte repletion - hold subQ hep per primary - No therapeutic AC for 4 weeks Respiratory insufficiency 02/01/2022 Last Assessment & Plan: Assessment: extubated 02/05 Mild b/l GOYO atelectasis, satting 98-99% on RA 02/06 Requiring 2L NC to maintain O2 sat 97-99%. PLAN: -- Wean o2 as able -- Encourage OOB with PT, IS -- IV Lasix 40mg Postoperative pain 01/28/2022 Last Assessment & Plan: Assessment: Admitted 02/01 with worsening abdominal pain s/p robotic low anterior resection with colorectal anastomosis and diverting loop ileostomy on 01/27. More abdominal pain this morning, but abdomen soft, Hgb stable, not hypotensive, afebrile and leukocytosis resolving - no data points to suggest intraabd bleed or new infection Pain improving likely 04/02 to hematoma PLAN: -- prn tylenol and oxy for pain - abdominal binder - palliative consulted, appreciate recs Obesity, Class I, BMI 30-34.9 01/26/2022 04/06/2022 Essential hypertension 04/30/202104/06 Last Assessment & Plan: Assessment: takes metoprolol 25mg BID PLAN: - start metop 12.5 BID documented as of this encounter (statuses as of 12/05/2022) [facility]03-20-2023 History of Past illness Narrative* Problem Noted Date Diagnosed Date Resolved Date Pre-op evaluation 05/18/2022 07/07/2022 Inadequate pain control 02/16/202201/30 Last Assessment & Plan: Assessment: poorly controlled abd pain since admission. Reports pain is so bad he wants to pursue comfort care as he does not want to be alive anymore. Has episodes of acute pain then becomes somnolent after opioid administration. PLAN: - shceduled tylenol - PRN Oxy 5 q6 -fent prn -palliative med consult, appreciate recs Hypophosphataemia 2022 02/24/2022 Last Assessment & Plan: PLAN: - replete per SICU order set Malnutrition of mild degree 02/05/2022 05/22/2022 Last Assessment & Plan: Corpak placed 02/17 Obesity, Class II, BMI 35-39.9 02/05/2022 04/06/2022 FINESSE (acute kidney injury) 02/03/2022 Last Assessment & Plan: Assessment: Admitted with elevated Cr 1.56. Uptrending despite fluid resuscitation. Possible element of renovascular congestion vs malperfusion 02/03,02/04 Lasix challenge appropriate 02/05 FINESSE resolved with good UOP 02/06 Good UOP, FINESSE resolved. Given O2 requirement might still be volume up. 02/07 Good UOP, FINESSE resolved. 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 Prior to arrival he received 4L crystals, 1 unit whole blood and 2 unit pRBCs. Started on levo and vaso MTP initiated, Level 1 for heating 02/16: pt presented with distended abdomen, tenderness, guarding and hypotension. PLAN: - Transfuse as indicated - Labs with lyte repletion - hold subQ hep per primary - No therapeutic AC for 4 weeks Respiratory insufficiency 02/01/2022 Last Assessment & Plan: Assessment: extubated 02/05 Mild b/l GOYO atelectasis, satting 98-99% on RA 02/06 Requiring 2L NC to maintain O2 sat 97-99%. PLAN: -- Wean o2 as able -- Encourage OOB with PT, IS -- IV Lasix 40mg Postoperative pain 01/28/2022 Last Assessment & Plan: Assessment: Admitted 02/01 with worsening abdominal pain s/p robotic low anterior resection with colorectal anastomosis and diverting loop ileostomy on 01/27. More abdominal pain this morning, but abdomen soft, Hgb stable, not hypotensive, afebrile and leukocytosis resolving - no data points to suggest intraabd bleed or new infection Pain improving likely 2/2 to hematoma PLAN: -- prn tylenol and oxy for pain - abdominal binder - palliative consulted, appreciate recs Obesity, Class I, BMI 30-34.9 01/26/2022 04/06/2022 Essential hypertension 04/30/202104/06 Last Assessment & Plan: Assessment: takes metoprolol 25mg BID PLAN: - start metop 12.5 BID documented as of this encounter (statuses as of 12/16/2022) [facility]03-20-2023 History of Past illness Narrative* Problem Noted Date Diagnosed Date Resolved Date Pre-op evaluation 05/18/2022 07/07/2022 Inadequate pain control 02/16/202201/30 Last Assessment & Plan: Assessment: poorly controlled abd pain since admission. Reports pain is so bad he wants to pursue comfort care as he does not want to be alive anymore. Has episodes of acute pain then becomes somnolent after opioid administration. PLAN: - shceduled tylenol - PRN Oxy 5 q6 -fent prn -palliative med consult, appreciate recs Hypophosphataemia 2022 02/24/2022 Last Assessment & Plan: PLAN: - replete per SICU order set Malnutrition of mild degree 02/05/2022 05/22/2022 Last Assessment & Plan: Corpak placed 02/17 Obesity, Class II, BMI 35-39.9 02/05/2022 04/06/2022 FINESSE (acute kidney injury) 02/03/2022 Last Assessment & Plan: Assessment: Admitted with elevated Cr 1.56. Uptrending despite fluid resuscitation. Possible element of renovascular congestion vs malperfusion 02/03,02/04 Lasix challenge appropriate 02/05 FINESSE resolved with good UOP 02/06 Good UOP, FINESSE resolved. Given O2 requirement might still be volume up. 02/07 Good UOP, FINESSE resolved. 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 Prior to arrival he received 4L crystals, 1 unit whole blood and 2 unit pRBCs. Started on levo and vaso MTP initiated, Level 1 for heating 02/16: pt presented with distended abdomen, tenderness, guarding and hypotension. PLAN: - Transfuse as indicated - Labs with lyte repletion - hold subQ hep per primary - No therapeutic AC for 4 weeks Respiratory insufficiency 02/01/2022 Last Assessment & Plan: Assessment: extubated 02/05 Mild b/l GOYO atelectasis, satting 98-99% on RA 02/06 Requiring 2L NC to maintain O2 sat 97-99%. PLAN: -- Wean o2 as able -- Encourage OOB with PT, IS -- IV Lasix 40mg Postoperative pain 01/28/2022 Last Assessment & Plan: Assessment: Admitted 02/01 with worsening abdominal pain s/p robotic low anterior resection with colorectal anastomosis and diverting loop ileostomy on 01/27. More abdominal pain this morning, but abdomen soft, Hgb stable, not hypotensive, afebrile and leukocytosis resolving - no data points to suggest intraabd bleed or new infection Pain improving likely 2/2 to hematoma PLAN: -- prn tylenol and oxy for pain - abdominal binder - palliative consulted, appreciate recs Obesity, Class I, BMI 30-34.9 01/26/2022 04/06/2022 Essential hypertension 04/30/202104/06 Last Assessment & Plan: Assessment: takes metoprolol 25mg BID PLAN: - start metop 12.5 BID documented as of this encounter (statuses as of 12/30/2022) [facility]03-20-2023 History of Past illness Narrative* Problem Noted Date Diagnosed Date Resolved Date Pre-op evaluation 05/18/2022 07/07/2022 Inadequate pain control 02/16/202201/30 Last Assessment & Plan: Assessment: poorly controlled abd pain since admission. Reports pain is so bad he wants to pursue comfort care as he does not want to be alive anymore. Has episodes of acute pain then becomes somnolent after opioid administration. PLAN: - shceduled tylenol - PRN Oxy 5 q6 -fent prn -palliative med consult, appreciate recs Hypophosphataemia 2022 02/24/2022 Last Assessment & Plan: PLAN: - replete per SICU order set Malnutrition of mild degree 02/05/2022 05/22/2022 Last Assessment & Plan: Corpak placed 02/17 Obesity, Class II, BMI 35-39.9 02/05/2022 04/06/2022 FINESSE (acute kidney injury) 02/03/2022 Last Assessment & Plan: Assessment: Admitted with elevated Cr 1.56. Uptrending despite fluid resuscitation. Possible element of renovascular congestion vs malperfusion 02/03,02/04 Lasix challenge appropriate 02/05 FINESSE resolved with good UOP 02/06 Good UOP, FINESSE resolved. Given O2 requirement might still be volume up. 02/07 Good UOP, FINESSE resolved. 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 Prior to arrival he received 4L crystals, 1 unit whole blood and 2 unit pRBCs. Started on levo and vaso MTP initiated, Level 1 for heating 02/16: pt presented with distended abdomen, tenderness, guarding and hypotension. PLAN: - Transfuse as indicated - Labs with lyte repletion - hold subQ hep per primary - No therapeutic AC for 4 weeks Respiratory insufficiency 02/01/2022 Last Assessment & Plan: Assessment: extubated 02/05 Mild b/l GOYO atelectasis, satting 98-99% on RA 02/06 Requiring 2L NC to maintain O2 sat 97-99%. PLAN: -- Wean o2 as able -- Encourage OOB with PT, IS -- IV Lasix 40mg Postoperative pain 01/28/2022 Last Assessment & Plan: Assessment: Admitted 02/01 with worsening abdominal pain s/p robotic low anterior resection with colorectal anastomosis and diverting loop ileostomy on 01/27. More abdominal pain this morning, but abdomen soft, Hgb stable, not hypotensive, afebrile and leukocytosis resolving - no data points to suggest intraabd bleed or new infection Pain improving likely 2/2 to hematoma PLAN: -- prn tylenol and oxy for pain - abdominal binder - palliative consulted, appreciate recs Obesity, Class I, BMI 30-34.9 01/26/2022 04/06/2022 Essential hypertension 04/30/202104/06 Last Assessment & Plan: Assessment: takes metoprolol 25mg BID PLAN: - start metop 12.5 BID documented as of this encounter (statuses as of 04/13/2023) [facility]03-20-2023 History of Past illness Narrative* Problem Noted Date Diagnosed Date Resolved Date Pre-op evaluation 05/18/2022 07/07/2022 Inadequate pain control 02/16/2022 12/2 03/2021 Last Assessment & Plan: Assessment: poorly controlled abd pain since admission. Reports pain is so bad he wants to pursue comfort care as he does not want to be alive anymore. Has episodes of acute pain then becomes somnolent after opioid administration. PLAN: - shceduled tylenol - PRN Oxy 5 q6 -fent prn -palliative med consult, appreciate recs Hypophosphataemia 2022 02/24/2022 Last Assessment & Plan: PLAN: - replete per SICU order set Malnutrition of mild degree 02/05/2022 05/22/2022 Last Assessment & Plan: Corpak placed 02/17 Obesity, Class II, BMI 35-39.9 02/05/2022 04/06/2022 FINESSE (acute kidney injury) 02/03/2022 Last Assessment & Plan: Assessment: Admitted with elevated Cr 1.56. Uptrending despite fluid resuscitation. Possible element of renovascular congestion vs malperfusion 02/03,02/04 Lasix challenge appropriate 02/05 FINESSE resolved with good UOP 02/06 Good UOP, FINESSE resolved. Given O2 requirement might still be volume up. 02/07 Good UOP, FINESSE resolved. 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 Prior to arrival he received 4L crystals, 1 unit whole blood and 2 unit pRBCs. Started on levo and vaso MTP initiated, Level 1 for heating 02/16: pt presented with distended abdomen, tenderness, guarding and hypotension. PLAN: - Transfuse as indicated - Labs with lyte repletion - hold subQ hep per primary - No therapeutic AC for 4 weeks Respiratory insufficiency 02/01/2022 Last Assessment & Plan: Assessment: extubated 02/05 Mild b/l GOYO atelectasis, satting 98-99% on RA 02/06 Requiring 2L NC to maintain O2 sat 97-99%. PLAN: -- Wean o2 as able -- Encourage OOB with PT, IS -- IV Lasix 40mg Postoperative pain 01/28/2022 Last Assessment & Plan: Assessment: Admitted 02/01 with worsening abdominal pain s/p robotic low anterior resection with colorectal anastomosis and diverting loop ileostomy on 01/27. More abdominal pain this morning, but abdomen soft, Hgb stable, not hypotensive, afebrile and leukocytosis resolving - no data points to suggest intraabd bleed or new infection Pain improving likely 2/2 to hematoma PLAN: -- prn tylenol and oxy for pain - abdominal binder - palliative consulted, appreciate recs Obesity, Class I, BMI 30-34.9 01/26/2022 04/06/2022 Essential hypertension 04/30/202104/06 Last Assessment & Plan: Assessment: takes metoprolol 25mg BID PLAN: - start metop 12.5 BID documented as of this encounter (statuses as of 04/23/2023) [facility]03-20-2023 History of Past illness Narrative* Problem Noted Date Diagnosed Date Resolved Date Pre-op evaluation 05/18/2022 07/07/2022 Inadequate pain control 02/16/202201/30 Last Assessment & Plan: Assessment: poorly controlled abd pain since admission. Reports pain is so bad he wants to pursue comfort care as he does not want to be alive anymore. Has episodes of acute pain then becomes somnolent after opioid administration. PLAN: - shceduled tylenol - PRN Oxy 5 q6 -fent prn -palliative med consult, appreciate recs Hypophosphataemia 2022 02/24/2022 Last Assessment & Plan: PLAN: - replete per SICU order set Malnutrition of mild degree 02/05/2022 05/22/2022 Last Assessment & Plan: Corpak placed 02/17 Obesity, Class II, BMI 35-39.9 02/05/2022 04/06/2022 FINESSE (acute kidney injury) 02/03/2022 Last Assessment & Plan: Assessment: Admitted with elevated Cr 1.56. Uptrending despite fluid resuscitation. Possible element of renovascular congestion vs malperfusion 02/03,02/04 Lasix challenge appropriate 02/05 FINESSE resolved with good UOP 02/06 Good UOP, FINESSE resolved. Given O2 requirement might still be volume up. 02/07 Good UOP, FINESSE resolved. 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 Prior to arrival he received 4L crystals, 1 unit whole blood and 2 unit pRBCs. Started on levo and vaso MTP initiated, Level 1 for heating 02/16: pt presented with distended abdomen, tenderness, guarding and hypotension. PLAN: - Transfuse as indicated - Labs with lyte repletion - hold subQ hep per primary - No therapeutic AC for 4 weeks Respiratory insufficiency 02/01/2022 Last Assessment & Plan: Assessment: extubated 02/05 Mild b/l GOYO atelectasis, satting 98-99% on RA 02/06 Requiring 2L NC to maintain O2 sat 97-99%. PLAN: -- Wean o2 as able -- Encourage OOB with PT, IS -- IV Lasix 40mg Postoperative pain 01/28/2022 Last Assessment & Plan: Assessment: Admitted 02/01 with worsening abdominal pain s/p robotic low anterior resection with colorectal anastomosis and diverting loop ileostomy on 01/27. More abdominal pain this morning, but abdomen soft, Hgb stable, not hypotensive, afebrile and leukocytosis resolving - no data points to suggest intraabd bleed or new infection Pain improving likely 2/2 to hematoma PLAN: -- prn tylenol and oxy for pain - abdominal binder - palliative consulted, appreciate recs Obesity, Class I, BMI 30-34.9 01/26/2022 04/06/2022 Essential hypertension 04/30/202104/06 Last Assessment & Plan: Assessment: takes metoprolol 25mg BID PLAN: - start metop 12.5 BID documented as of this encounter (statuses as of 04/28/2023) [facility]03-20-2023 History of Past illness Narrative* Problem Noted Date Diagnosed Date Resolved Date Pre-op evaluation 05/18/2022 07/07/2022 Inadequate pain control 02/16/202201/30 Last Assessment & Plan: Assessment: poorly controlled abd pain since admission. Reports pain is so bad he wants to pursue comfort care as he does not want to be alive anymore. Has episodes of acute pain then becomes somnolent after opioid administration. PLAN: - shceduled tylenol - PRN Oxy 5 q6 -fent prn -palliative med consult, appreciate recs Hypophosphataemia 2022 02/24/2022 Last Assessment & Plan: PLAN: - replete per SICU order set Malnutrition of mild degree 02/05/2022 05/22/2022 Last Assessment & Plan: Corpak placed 02/17 Obesity, Class II, BMI 35-39.9 02/05/2022 04/06/2022 FINESSE (acute kidney injury) 02/03/2022 Last Assessment & Plan: Assessment: Admitted with elevated Cr 1.56. Uptrending despite fluid resuscitation. Possible element of renovascular congestion vs malperfusion 02/03,02/04 Lasix challenge appropriate 02/05 FINESSE resolved with good UOP 02/06 Good UOP, FINESSE resolved. Given O2 requirement might still be volume up. 02/07 Good UOP, FINESSE resolved. 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 Prior to arrival he received 4L crystals, 1 unit whole blood and 2 unit pRBCs. Started on levo and vaso MTP initiated, Level 1 for heating 02/16: pt presented with distended abdomen, tenderness, guarding and hypotension. PLAN: - Transfuse as indicated - Labs with lyte repletion - hold subQ hep per primary - No therapeutic AC for 4 weeks Respiratory insufficiency 02/01/2022 Last Assessment & Plan: Assessment: extubated 02/05 Mild b/l GOYO atelectasis, satting 98-99% on RA 02/06 Requiring 2L NC to maintain O2 sat 97-99%. PLAN: -- Wean o2 as able -- Encourage OOB with PT, IS -- IV Lasix 40mg Postoperative pain 01/28/2022 Last Assessment & Plan: Assessment: Admitted 02/01 with worsening abdominal pain s/p robotic low anterior resection with colorectal anastomosis and diverting loop ileostomy on 01/27. More abdominal pain this morning, but abdomen soft, Hgb stable, not hypotensive, afebrile and leukocytosis resolving - no data points to suggest intraabd bleed or new infection Pain improving likely /2 to hematoma PLAN: -- prn tylenol and oxy for pain - abdominal binder - palliative consulted, appreciate recs Obesity, Class I, BMI 30-34.9 01/26/2022 04/06/2022 Essential hypertension 04/30/202104/06 Last Assessment & Plan: Assessment: takes metoprolol 25mg BID PLAN: - start metop 12.5 BID documented as of this encounter (statuses as of 05/31/2023) [facility]03-20-2023 History of Past illness Narrative* Problem Noted Date Diagnosed Date Resolved Date Pre-op evaluation 05/18/2022 07/07/2022 Inadequate pain control 02/16/202201/30 Last Assessment & Plan: Assessment: poorly controlled abd pain since admission. Reports pain is so bad he wants to pursue comfort care as he does not want to be alive anymore. Has episodes of acute pain then becomes somnolent after opioid administration. PLAN: - shceduled tylenol - PRN Oxy 5 q6 -fent prn -palliative med consult, appreciate recs Hypophosphataemia 2022 02/24/2022 Last Assessment & Plan: PLAN: - replete per SICU order set Malnutrition of mild degree 02/05/2022 05/22/2022 Last Assessment & Plan: Corpak placed 02/17 Obesity, Class II, BMI 35-39.9 02/05/2022 04/06/2022 FINESSE (acute kidney injury) 02/03/2022 Last Assessment & Plan: Assessment: Admitted with elevated Cr 1.56. Uptrending despite fluid resuscitation. Possible element of renovascular congestion vs malperfusion 02/03,02/04 Lasix challenge appropriate 02/05 FINESSE resolved with good UOP 02/06 Good UOP, FINESSE resolved. Given O2 requirement might still be volume up. 02/07 Good UOP, FINESSE resolved. 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 Prior to arrival he received 4L crystals, 1 unit whole blood and 2 unit pRBCs. Started on levo and vaso MTP initiated, Level 1 for heating 02/16: pt presented with distended abdomen, tenderness, guarding and hypotension. PLAN: - Transfuse as indicated - Labs with lyte repletion - hold subQ hep per primary - No therapeutic AC for 4 weeks Respiratory insufficiency 02/01/2022 Last Assessment & Plan: Assessment: extubated 02/05 Mild b/l GOYO atelectasis, satting 98-99% on RA 02/06 Requiring 2L NC to maintain O2 sat 97-99%. PLAN: -- Wean o2 as able -- Encourage OOB with PT, IS -- IV Lasix 40mg Postoperative pain 01/28/2022 Last Assessment & Plan: Assessment: Admitted 02/01 with worsening abdominal pain s/p robotic low anterior resection with colorectal anastomosis and diverting loop ileostomy on 01/27. More abdominal pain this morning, but abdomen soft, Hgb stable, not hypotensive, afebrile and leukocytosis resolving - no data points to suggest intraabd bleed or new infection Pain improving likely 2/2 to hematoma PLAN: -- prn tylenol and oxy for pain - abdominal binder - palliative consulted, appreciate recs Obesity, Class I, BMI 30-34.9 01/26/2022 04/06/2022 Essential hypertension 04/30/202104/06 Last Assessment & Plan: Assessment: takes metoprolol 25mg BID PLAN: - start metop 12.5 BID documented as of this encounter (statuses as of 06/11/2023) [facility]03-20-2023 History of Past illness Narrative* Problem Noted Date Diagnosed Date Resolved Date Pre-op evaluation 05/18/2022 07/07/2022 Inadequate pain control 02/16/202201/30 Last Assessment & Plan: Assessment: poorly controlled abd pain since admission. Reports pain is so bad he wants to pursue comfort care as he does not want to be alive anymore. Has episodes of acute pain then becomes somnolent after opioid administration. PLAN: - shceduled tylenol - PRN Oxy 5 q6 -fent prn -palliative med consult, appreciate recs Hypophosphataemia 2022 02/24/2022 Last Assessment & Plan: PLAN: - replete per SICU order set Malnutrition of mild degree 02/05/2022 05/22/2022 Last Assessment & Plan: Corpak placed 02/17 Obesity, Class II, BMI 35-39.9 02/05/2022 04/06/2022 FINESSE (acute kidney injury) 02/03/2022 Last Assessment & Plan: Assessment: Admitted with elevated Cr 1.56. Uptrending despite fluid resuscitation. Possible element of renovascular congestion vs malperfusion 02/03,02/04 Lasix challenge appropriate 02/05 FINESSE resolved with good UOP 02/06 Good UOP, FINESSE resolved. Given O2 requirement might still be volume up. 02/07 Good UOP, FINESSE resolved. 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 Prior to arrival he received 4L crystals, 1 unit whole blood and 2 unit pRBCs. Started on levo and vaso MTP initiated, Level 1 for heating 02/16: pt presented with distended abdomen, tenderness, guarding and hypotension. PLAN: - Transfuse as indicated - Labs with lyte repletion - hold subQ hep per primary - No therapeutic AC for 4 weeks Respiratory insufficiency 02/01/2022 Last Assessment & Plan: Assessment: extubated 02/05 Mild b/l GOYO atelectasis, satting 98-99% on RA 02/06 Requiring 2L NC to maintain O2 sat 97-99%. PLAN: -- Wean o2 as able -- Encourage OOB with PT, IS -- IV Lasix 40mg Postoperative pain 01/28/2022 Last Assessment & Plan: Assessment: Admitted 02/01 with worsening abdominal pain s/p robotic low anterior resection with colorectal anastomosis and diverting loop ileostomy on 01/27. More abdominal pain this morning, but abdomen soft, Hgb stable, not hypotensive, afebrile and leukocytosis resolving - no data points to suggest intraabd bleed or new infection Pain improving likely 2/2 to hematoma PLAN: -- prn tylenol and oxy for pain - abdominal binder - palliative consulted, appreciate recs Obesity, Class I, BMI 30-34.9 01/26/2022 04/06/2022 Essential hypertension 04/30/202104/06 Last Assessment & Plan: Assessment: takes metoprolol 25mg BID PLAN: - start metop 12.5 BID documented as of this encounter (statuses as of 06/15/2023) [facility]03-01-2023 Miscellaneous Notes* Telephone Encounter - Liz Xavier APRN.CNP - 04/29/2022 5:15 PM EST Telephone Encounter~ Person of Contact: Pt Reason for Call: discuss IVC Filter appointment Outcome of Call: Pt will reschedule his IR IVC [place] removal consult until after follow up &surgery. Pt will complete follow up with Vascular Medicine 05/20/22. Pt recently switched from Lovenox to Eliquis. staff contacted with plan of care. Planned colorectal surgery 06/04/22 Contact Number Given: Yes Number of minutes: A total of (10) minutes was spent on this encounter Liz Xavier APRN.CNP April 29, 2022 documented in this [facility] Miscellaneous Notes* Telephone Encounter - Leandro Cruz RN - 04/24/2022 2:[address] Ramiro Cheung; This message is to inform you that your patient has been discharged from skilled home health services as of 04/23/22. Goals met. Thank you for choosing [facility] to serve your patient's home careneeds. Leandro Cruz RN documented in this encounterSam[facility] Miscellaneous Notes* SN Agency DC - Doris Rivera RN - 04/23/2022 11:35 AM EST SITUATION: [facility] agency discharge visit completed today. spouse also present during today's visit. patient and caregiver reports the following: Allergies--reviewed Medications--reviewed current medications Falls--None BACKGROUND: Reason for Home Care: Pulmonary embolism and infarction ASSESSMENT: SN greeted at door by patient no DME and demonstrates stable gait. Patient appears in no acute distress. Vitals (see flow sheet for details): stable SN findings today: Pt has progressed well towards his Nursing goals. He demonstrates independence of ostomy management and supply ordering. He has been given his discharge instructions and is in agreement with today's discharge. See intervention summary for education details and any skills performed. Specific SN discharge instructions: Access the [facility] ostomy and wound department as a resource for any future questions or concerns regarding your ostomy. Patient encouraged to take all medication as ordered, eat a well-balanced diet and follow up with all physician appointments. NOMNC: signed and present on EMR Discharged due to Goals met. Patient discharged from Home Care to: self-care and family support RECOMMENDATION: Additional follow ups recommended: None Patient to follow up with Dr. Faust for additional medical questions/concerns. documented in this [facility]Sam[facility] History of Present illness Narrative* Katy Faust MD - 04/22/2022 4:48 PM EST This note was created using [employer]. Subjective Jai Luna is a 72 year old male. HISTORY Jai Luna is a 72 year old gentleman here to be formally established with me. Has been drinking a lot of fluids. Gatorade, juice, etc. More juice than Gatorade. No symptoms of low BP with SBP in 110s. Positive Hep B antibody in the past and told could not give blood. Does not know when could have gotten hepatitis B. No history symptoms of hepatitis. Brother in 1984 and got sick after identified his body (after MVA). Will stay on Eliquis till has surgery in May (ileostomy reversal). 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 Had COVID in 2019 (May and documented)--was really ill but did okay afterwards. 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 atorvastatin (LIPITOR) 40 mg tablet Take 1 tablet by mouth daily at bedtime. For cholesterol per [facility]. coenzyme Q10 (COENZYME Q-10) 100 mg cap capsule Take 100 mg by mouth once daily. Cholecalciferol, Vitamin D3, 50 mcg (2,000 unit) cap Take 1 capsule by mouth two times a week. acetaminophen (TYLENOL) 500 mg tablet Take 1-2 tablets by mouth every 6 hours as needed for pain. metoprolol tartrate, short acting, (LOPRESSOR) 25 mg tablet Take a half tablet by mouth twice daily. No current facility-administered medications for this visit. ALLERGIES Allergen Reactions Clindamycin GI Upset Codeine GI Upset PAST SURGICAL HISTORY Procedure Laterality Date COLONOSCOPY 03/20/2021 COLONOSCOPY FLX DX W/COLLJ SPEC WHEN PFRMD 08/24/2007 Colonoscopy CORONARY ARTERY BYP W/VEIN & ARTERY GRAFT 3 VEIN 03/01/1994 CABG, three grafts EYE SURGERY HX HEART SURGERY HX PERC TRANSL COR ANGIO 10/31/2003 Percutaneous Transluminal Coronary Angio Status PROSTATE SURGERY HX STRABISMUS RECESSION/RESCJ 1 [facility] [place] Strabismus surgery TONSILLECTOMY HX TONSILLECTOMY PRIMARY/SECONDARY <AGE 12 Tonsillectomy VASCULAR SURGERY PROCEDURE FAMILY HISTORY Problem Relation Age of Onset Heart Father Emphysema Mother Emphysema Sister Anesthesia Problems No Family History Social History Tobacco Use Smoking status: Former Packs/day: 1.00 Years: 30.00 Pack years: 30.00 Types: Cigarettes Quit date: 01/29/2000 Years since quittin.2 Smokeless tobacco: Never Vaping Use Vaping Use: Never used Substance Use Topics Alcohol use: Yes Comment: rarely Drug use: No Review of Systems Objective BP 109/76 Pulse 103 Resp 18 Wt 67.6 kg (149 lb) BMI 24.79 kg/m Last 5 Encounter Wt Readings: Date: Wt: 04/22/2022 67.4 kg (148 lb 9.6 oz) 04/22/2022 67.6 kg (149 lb) 04/17/2022 64.8 kg (142 lb 12.8 oz) 04/09/2022 64 kg (141 lb) 04/06/2022 64.5 kg (142 lb 3.2 oz) No waist measurement recorded Estimated body mass index is 24.79 kg/m as calculated from the following: Height as of 04/06/22: 165.1 cm (5' 5"). Weight as of this encounter: 67.6 kg (149 lb). Last 5 Encounter BP Readings: Date: BP: 04/22/2022 108/76 04/22/2022 109/76 04/21/2022 110/66 04/17/2022 88/62 04/17/2022 102/72 Physical Exam Vitals reviewed. Constitutional: Appearance: Normal appearance. HENT: Head: Normocephalic. Eyes: Conjunctiva/sclera: Conjunctivae normal. Cardiovascular: Rate and Rhythm: Normal rate and regular rhythm. Heart sounds: Normal heart sounds. Pulmonary: Effort: Pulmonary effort is normal. Breath sounds: Normal breath sounds. Skin: General: Skin is warm and dry. Neurological: General: No focal deficit present. Mental Status: He is alert and oriented to person, place, and time. Psychiatric: Mood and Affect: Mood normal. Speech: Speech normal. Behavior: Behavior normal. Thought Content: Thought content normal. Judgment: Judgment normal. Component Latest Ref Rng & Units 03/09/2022 03/10/2022 03/18/2022 04/06/2022 04/07/2022 Protein, Total 6.3 - 8.0 g/dL 7.8 Albumin 3.9 - 4.9 g/dL 4.4 Calcium 8.5 - 10.2 mg/dL 8.0 (L) 8.3 (L) 9.2 10.4 (H) Bilirubin, Total 0.2 - 1.3 mg/dL 0.3 Alkaline Phosphatase 38 - 113 U/L 93 AST 14 - 40 U/L 32 ALT 10 - 54 U/L 30 Glucose 74 - 99 mg/dL 97 96 92 129 (H) BUN 9 - 24 mg/dL 13 12 17 31 (H) Creatinine 0.73 - 1.22 mg/dL 0.66 (L) 0.64 (L) 0.75 1.26 (H) Sodium 136 - 144 mmol/L 137 137 138 135 (L) Potassium 3.7 - 5.1 mmol/L 3.5 (L) 3.6 (L) 4.3 6.1 (HH) 5.3 (H) Chloride 97 - 105 mmol/L 104 103 104 103 CO2 22 - 30 mmol/L 22 23 20 (L) 20 (L) Anion Gap 9 - 18 mmol/L 11 11 14 12 eGFR >=60 mL/min/1.73m 100 101 96 61 WBC 3.70 - 11.00 k/uL 8.33 7.77 7.81 8.48 RBC 4.20 - 6.00 m/uL 2.71 (L) 2.68 (L) 3.28 (L) 4.24 Hemoglobin 13.0 - 17.0 g/dL 8.2 (L) 8.0 (L) 10.2 (L) 13.3 Hematocrit 39.0 - 51.0 % 26.6 (L) 26.1 (L) 34.2 (L) 43.2 MCV 80.0 - 100.0 fL 98.2 97.4 104.3 (H) 101.9 (H) MCH 26.0 - 34.0 pg 30.3 29.9 31.1 31.4 MCHC 30.5 - 36.0 g/dL 30.8 30.7 29.8 (L) 30.8 RDW-CV 11.5 - 15.0 % 19.2 (H) 19.3 (H) 19.2 (H) 17.0 (H) Platelet Count 150 - 400 k/uL 410 (H) 422 (H) 487 (H) 478 (H) MPV 9.0 - 12.7 fL 9.7 9.7 9.6 10.0 Absolute nRBC <0.01 k/uL <0.01 <0.01 <0.01 <0.01 Cholesterol, Total <200 mg/dL 126 Triglyceride <150 mg/dL 132 HDL Cholesterol >39 mg/dL 43 Non HDL Cholesterol <130 mg/dL 83 Fasting Time hrs 5 VLDL Cholesterol <30 mg/dL 26 TC:HDL Ratio <5.10 2.93 LDL Cholesterol <100 mg/dL 57 LDL:HDL Ratio <2.54 1.33 Iron 41 - 186 ug/dL 51 TIBC 232 - 386 ug/dL 288 Transferrin Saturation 15.0 - 57.0 % 17.7 Hep C Antibody IA Negative Negative Assessment and Plan Encounter Diagnosis ICD-10-CM 1. Iron deficiency anemia, unspecified iron deficiency anemia type D50.9 resolved [address]. 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) Z93.2 Plans for reversal noted 3. History of hepatitis B Z86.19 HEP B SURF AG SCRN HEP B SURF AB 4. History of anemia Z86.2 Resolved on recent labs 5. Status post coronary artery bypass graft Z95.1 follows with [facility] 6. Dyslipidemia E78.5 On Lipitor 72 year old gentleman here to be formally established with me. History and medications reviewed. Epic updated as needed Above issues addressed with patient. Patient involved in shared decision making for management of medical issues. Refills taken care of and meds adjusted as indicated after reviewed history, exam and labs. Health Maintenance reviewed. Updated record and/or ordered tests as recorded. Encouraged on efforts at healthy diet and regular exercise and adequate sleep. Continue present management.Further evaluation and treatment as indicated. Katy Faust MD documented in this encounterSam[facility]23 Miscellaneous Notes* PT DISCHARGE - Estefany Stern, PT - 04/22/2022 1:46 PM EST SITUATION: spouse present during today's visit. patient reports the following since the last homecare visit: medications/allergies--no changes, no fall. patient reports he is feeling good. 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 Thrombectomy and placement of new IVC Weight Bearing/Precaution Changes: no changes ASSESSMENT: Focus of visit: reassessment/discharge Physical therapy discharged: goals achieved. Functional performance at discharge - bed mobility independent, transfers independent, ambulation independent and stairs independent. Plan of care, goals, and discharge reviewed and agreed upon with patient and/or caregiver. RECOMMENDATION: Patient discharged from home health services. Instructions to include:home exercise program as directed See intervention summary for intervention/education details. documented in this encounterSam[facility]23 Miscellaneous Notes* PT ROUTINE/REASSESSMENT/RECERT/CASE MGMT - Isela Patrizia, SCOOP DRIVER - 04/21/2022 11:05 AM EST SITUATION: spouse present during today's visit. patient reports the following since the last homecare visit: medications/allergies--no changes, no fall. patient reports he is feeling good. states he feels he can continue w/ HEP and plans to increase walking times/distances as able. . 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 Thrombectomy and placementof new IVC Weight Bearing/Precaution Changes: no changes ASSESSMENT: Focus of visit reviewed and perfomrd standong and seated le strengh exercises for HEP. held on standing calf raises due to calf soreness. issued NOMNC for DC this week. Patient agrees w/ DC. Plan of care, goals, and visit frequency reviewed and agreed upon with patient and/or caregiver. Current Discharge Plan: independent with home exercise program Anticipate discharge by 04/23/22 RECOMMENDATION: Next visit to focus on PT to see for DC See intervention summary for intervention/education details. documented in this encounterSam[facility] Miscellaneous Notes* PT ROUTINE/REASSESSMENT/RECERT/CASE MGMT - Isela Acharya PTA - 04/17/2022 11:14 AM EST SITUATION: only patient present during today's visit. patient reports the following since the last homecare visit: medications/allergies--no changes, no fall. patient reports he has had low BP today. [facility] nurse called today during her visit to report. Dr office called patient back and instructed him to monitor BP, drink 64oz fluids/day and increase salt intake. . 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 Thrombectomy and placementof new IVC Weight Bearing/Precaution Changes: no changes ASSESSMENT: Focus of visit performed standing and seated strength and endurance exercises for HEP. denies increased pain or any dizziness/light headedmfeeling. Discussed possible DC next week. Patient voiced understanding Plan of care, goals, and visit frequency reviewed and agreed upon with patient and/or caregiver. Current Discharge Plan: independent with home exercise program Anticipate discharge by 04/23/22 RECOMMENDATION: Next visit to focus on NOMNC See intervention summary for intervention/education details. documented in this encounterSam[facility]02-17-2023 Miscellaneous Notes* CARE COORDINATION - Leandro Cruz RN - 04/17/2022 10:55 AM EST 04/13/22 11:00am SN contacted [facility] for follow up on 04/17/22 regarding the whereabouts of the "drop-ship" order placed on 04/09/22. This SN spoke with "Josh," he investigated with the gas engine operator generators and discovered there is low availablility of this product. However, it appears to be shippingin 4 days. This SN will alert the visit nurse "Britta," and the patient. 04/13/22 11:10am This SN notified visit nurse of the circumstance, she in turn contacted the patientand he would like to await the arrival of the new supplies.Stoma paste to arrive today via [employer]. documented in this encounterSamaritan [facility] Center02-15-2023 Miscellaneous Notes* PT ROUTINE/REASSESSMENT/RECERT/CASE MGMT - Isela Acharya PTA - 04/15/2022 11:08 AM EST SITUATION: spouse present during today's visit. patient reports the following since the last homecare visit: medications/allergies--no changes, no fall. patient reports he is feeling much better, has been doingexercises and moving around house more. 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 Thrombectomy and placementof new IVC Weight Bearing/Precaution Changes: no changes ASSESSMENT: Focus of visit standing strength exercises for HEP. able to add step ups and increase reps and timeon restorator, denies pain and vitals stable throughout Plan of care, goals, and visit frequency reviewed and agreed upon with patient and/or caregiver. Current Discharge Plan: independent with home exercise program Anticipate discharge by 04/26/22 RECOMMENDATION: Next visit to focus on stairs to exit home See intervention summary for intervention/education details. documented in this encounterSam[facility] Center02-13-2023 Miscellaneous Notes* Telephone Encounter - Ladan Oviedo - 04/13/2022 12:15 PM EST April 13, 2022 [id number] Patient Name: Jai Luna Contact Information: [address]le[address] [facility] Home [facility] Reason For Call:Patient Update Britta from [facility] called with an update on the patient. She stated that he is feeling much better, vital signs are stable, can tolerate activity. Patient feels much better than last . Physician:Terry Cifuentes MD documented in this encounterSamaritan [facility] Center02-13-2023 Miscellaneous Notes* SN Routine - Britta Mantilla RN - 04/13/2022 11:36 AM EST SITUATION: [facility] routine visit completed today. spouse also present during today's visit. patient reports the following: Allergies--reviewed Medications--reviewed current medications Falls--None BACKGROUND: Reason for Home Care: ostomy care, follow up on muscle weakness symptoms ASSESSMENT: SN greeted at door by caregiver. Upon entrance patient found in chair Patient appears in no acute distress. Patient/CG concerns verbalized today: no special concerns Vitals (see flow sheet for details): stable SN findings today: Pt is sitting in recliner. He reports that he is feeling much better today, he has been up in the kitchen getting his own meals and drinks. He reports that he was dizzy for a briefperiod but otherwise has been feeling good. He has been eating and drinking plety of fluids. He changed his ostomy pouch this am on his own. SN instructed pt on the new pouches ordered and that will m ost likely dc from home health after he evaluates them. Pt reports that he still has abdominal painoff and on. He reports that the rectal drainage has been less for the most part but he did have some drainage this morning. See intervention summary for education details. SN contacted Dr Balderrama's office and gave update of pt's improvement. Patient demonstrated a need for further skilled SN services for ostomy management & education. Current Discharge plan: self-care and family support RECOMMENDATION: Next visit to focus on (be specific): have new ostomy pouches arrived? ?NOMNC? Plan to dc at end ofcert period. documented in this encounterSam[facility] Center2023 Miscellaneous Notes* HH SN Routine - Britta Mantilla RN - 04/09/2022 10:21 AM EST SITUATION: [facility] routine visit completed today. spouse also present during today's visit. patient reports the following: Allergies--reviewed Medications--reviewed current medications Falls--None BACKGROUND: Reason for Home Care: ileostomy care and teaching ASSESSMENT: SN greeted at door by no one. Upon entrance patient found in chair Patient appears in no acute distress. Patient/CG concerns verbalized today: Pt is with therapy and reports that he is significantly weaker in his legs and has felt like they are going to buckle. Therapist reports that when she researchedthis, this may be a rare side effect of Eliquis which he started on Wednesday night this past week. This is the only change. Sn contacted Dr Balderrama's office and spoke with Jose Elias, office nurse and reported this. She is going to discuss with Dr Balderrama and return my call. This Sn informed Jose Elias that pt has 6 Lovenox injections left in the home. Vitals (see flow sheet for details): stable SN findings today: Pt is sitting in recliner in the living room. Therapy is present and reports that pt is not able to do half of the exercises that he did a few days ago. Pt denies falls but states that he has felt like his legs are going to buckle several times since the beginning of the week. Hehas barely been able to walk to the bathroom and back. Pt did ambulate to bathroom and was visibly tired when he returned. Pt did cut his pouch opening today while sitting in the chair, he applied the paste and then ambulated to bathroom and changed the pouch without SN assistance. He is very tiredand had to go immediately back to the chair and sat, taking deep breaths and recovered. Dr Balderrama'soffice called back and Dr balderrama feels that it would be very unlikely that the eliquis is causing the weakness, she wants him to continue it over the weekend and SN to call her office on Wednesday with an update. Sn instructed pt that if he feels that he needs ER treatment; cannot stand, chest pain that does not resolve with rest and deep breathing. See intervention summary for education details. Patient demonstrated a need for further skilled SN services for medication education, safety and ostomy management & education. Current Discharge plan: self-care and family support RECOMMENDATION: Next visit to focus on (be specific): return demonstration for ostomy care. documented in this encounterSam[facility]02-08-2023 Miscellaneous Notes* Telephone Encounter - Don Feldman LPN - 04/08/2022 2:16 PM EST PATIENT NOTIFIED OF SAME. * Telephone Encounter - Don Feldman LPN - 04/08/2022 2:14 PM EST Hi Chaka, Your repeat potassium level is much better, still a little high but not considered critical. I would recommend repeat labs in 2 weeks to make sure things are staying stable. I put in the orders. Norm Parker APRN.CHELSIE * Telephone Encounter - Dno Feldman LPN - 04/07/2022 4:04 PM EST Spoke with patient and notified of same. Will have lab repeated before 5:00pm. The only symptom that has worsened in last couple of days is chest pain with exertion but denied having any chest pain during home PT today. * Telephone Encounter - Norm Parker APRN.CHELSIE - 04/07/2022 3:36 PM EST Don, can we send him to [place] lab to have the stat potassium drawn? If yes please call patientand let him know to go get this done MACKENZIE to make sure specimen was not hemolyzed. Also if any symptoms of high potassium such as heart palpitations, shortness of breath, chest pain, nausea, or vomiting he should go to ER for repeat K+ level and eval. Otherwise labs were stable so that's why we need the repeat testing to confirm if high. * Telephone Encounter - Jerilyn Mariscal LPN - 04/07/2022 3:30 PM EST Patient s identity has been confirmed by name and birthdate: Yes Call received from Malini Jose at 3:20 PM to report a critical value for potassium with a result of 6.1. Norm Parker CNPwas notified of the result at 3:35PM. Jerilyn Mariscal LPN documented in this encounterSam[facility]02-07-2023 Miscellaneous Notes* PT ROUTINE/REASSESSMENT/RECERT/CASE MGMT - Isela Acharya PTA - 04/07/2022 11:05 AM EST SITUATION: spouse present during today's visit. patient reports the following since the last homecare visit: medications/allergies--no changes, no fall. patient reports he was tired all day yesterday. states hehad blood work yesterday better today . BACKGROUND: Diagnoses (reason for Home Care): ): L2-5 lami/decompression 01/28-02/24 03/04-7 wound dehiscence Weight Bearing/Precaution Changes: no changes ASSESSMENT: Focus of visit standing and seated le strengthening exercises. including 10min on restorator. denies increased pain and only mild fatigue after . did not require seated rest break w/ standing exercises today Plan of care, goals, and visit frequency reviewed and agreed upon with patient and/or caregiver. Current Discharge Plan: independent with home exercise program Anticipate discharge by 04/23/22 RECOMMENDATION: Next visit to focus on increase ambulation disrtances/times if able See intervention summary for intervention/education details. documented in this encounterSamar[facility]02-06-2023 History of Present illness Narrative* Norm Parker APRN.SECURITY SYSTEM INSTALLER - 04/06/2022 3:02 PM EST SUBJECTIVE Jai Luna is a 72 year old male here today to establish care. Chief Complaint Patient presents with: Establish Care Rectal Bleeding: rectal cancer HPI Jai Luna is a 72 year old male who presents today to establish care. He is accompanied by hiswife Marilu, they have been 35 years. He has a rather extensive medical history. Diagnosed this past fall with rectal/colon cancer that was found on screening colonoscopy by Dr. Oneill. He currently has an ileostomy. He underwent a low anterior resection in December. Has had on going issues,had an intraabdominal hemorrhage, multiple DVTs and PE, treated with an IVC filter and on anticoagulation and subsequent thrombectomies. He currently sees Dr. Cheung for his surgeon, Dr. Antoine forhis trading specialist (history of prior CABG), and Dr. Lakhani for hematology/oncology. He does have some issues with persistent rectal bleeding which per surgery is expected. He has somepersistent fatigue, dyspnea, low tolerance for activity. HH is coming in to the home for assistancewith ADLs and for therapy. He was very active prior to this. He denies any concerns for depression.Despite everything he has gone through he is in good spirits. Planning to have ileostomy reversed in May if all goes as planned. His medications were reviewed today and his list is now up to date. Medications Current Outpatient Medications Medication Sig apixaban (ELIQUIS) 5 mg tab(s) Take 1 tablet by mouth twice daily. atorvastatin (LIPITOR) 40 mg tablet Take 1 tablet by mouth daily at bedtime. For cholesterol per [facility]. metoprolol tartrate, short acting, (LOPRESSOR) 25 mg tablet Take a half tablet by mouth twice daily. coenzyme Q10 (COENZYME Q-10) 100 mg cap capsule Take 100 mg by mouth once daily. acetaminophen (TYLENOL) 500 mg tablet Take 1-2 tablets by mouth every 6 hours as needed for pain. tamsulosin (FLOMAX) 0.4 mg Take 1 capsule by mouth once daily. (Patient not taking: Reported on 03/23/2022) Cholecalciferol, Vitamin D3, 50 mcg (2,000 unit) cap Take 1 capsule by mouth two times a week. No current facility-administered medications for this visit. 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 Bilateral Carotid Artery Stenosis - 04/30/2021 Cervical Radiculopathy - 04/30/2021 Hearing Loss - 04/30/2021 History of Cardiac Catheterization - 04/30/2021 Status Post Coronary Artery Bypass Graft - 04/30/2021 Atherosclerosis of Coronary Artery Bypass Graft - 01/18/2013 Dyslipidemia - 01/16/2013 History of Myocardial Infarction - 08/29/1998 Social History Tobacco Use Smoking status: Former Packs/day: 1.00 Years: 30.00 Pack years: 30.00 Types: Cigarettes Quit date: 01/29/2000 Years since quittin.2 Smokeless tobacco: Never Vaping Use Vaping Use: Never used Substance Use Topics Alcohol use: Yes Comment: rarely Drug use: No Review of Systems Constitutional: Positive for activity change and fatigue. Negative for chills, diaphoresis and fever. Respiratory: Positive for chest tightness and shortness of breath. Negative for apnea, cough, choking, wheezing and stridor. Cardiovascular: Negative. Gastrointestinal: Positive for anal bleeding. OBJECTIVE BP 98/80 Pulse 115 Ht 5' 5" (1.65m) Wt 143 lb (64.9kg) SpO2 93% BMI 23.80 kg/(m^2). Physical Exam Vitals and nursing note reviewed. Constitutional: General: He is awake. He is not in acute distress. Appearance: He is not toxic-appearing or diaphoretic. HENT: Head: Normocephalic. Right Ear: External ear normal. Left Ear: External ear normal. Nose: Nose normal. Eyes: General: Vision grossly intact. Conjunctiva/sclera: Conjunctivae normal. Pupils: Pupils are equal, round, and reactive to light. Neck: Vascular: No JVD. Trachea: Trachea normal. Cardiovascular: Rate and Rhythm: Normal rate and regular rhythm. Pulses: Normal pulses. Heart sounds: Normal heart sounds. No murmur heard. Pulmonary: Effort: Pulmonary effort is normal. No accessory muscle usage, prolonged expiration or respiratory distress. Breath sounds: Normal breath sounds. Musculoskeletal: Cervical back: Neck supple. Skin: General: Skin is warm and dry. Capillary Refill: Capillary refill takes less than 2 seconds. Neurological: General: No focal deficit present. Mental Status: He is alert and oriented to person, place, and time. Mental status is at baseline. Psychiatric: Attention and Perception: Attention and perception normal. Mood and Affect: Mood and affect normal. Speech: Speech normal. Behavior: Behavior normal. Behavior is cooperative. Thought Content: Thought content normal. Cognition and Memory: Cognition and memory normal. Judgment: Judgment normal. ASSESSMENT/PLAN: 1. Rectal malignant neoplasm (HCC) - ICD9: 154.1, ICD10: C20 (primary diagnosis) In good spirits, continue with care per speciality providers, [facility] services, let us know if anythingnew comes up or any needs. 2. Malignant neoplasm of colon, unspecified part of colon (HCC) - ICD9: 153.9, ICD10: C18.9 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) - ICD9: V44.2, ICD10: Z93.2 Working with [facility] on care of this, hopeful for reversal in the next few months. 4. Bilateral pulmonary embolism (HCC) - ICD9: 415.19, ICD10: I26.99 Has IVC filter and on Eliquis now. 5. Blood loss - ICD9: 459.0, ICD10: R58 Check labs today. - CBC - IRON + TIBC 6. Anemia, unspecified type - ICD9: 285.9, ICD10: D64.9 - CBC - IRON + TIBC 7. Hyperlipidemia, unspecified hyperlipidemia type - ICD9: 272.4, ICD10: E78.5 - to be determined upon return of lab results - Continue current medication. - LIPID PANEL BASIC 8. Special screening examination for viral disease - ICD9: V73.99, ICD10: Z11.59 - HEP C AB IA W/CONF SCRN 9. Encounter to establish care - ICD9: V65.8, ICD10: Z76.89 10. Encounter for therapeutic drug monitoring - ICD9: V58.83, ICD10: Z51.81 - CBC - COMP METABOLIC PANEL Portions of this note have been entered by ancillary staff. I have reviewed and when necessary edited, so that they are an adequate record of my encounter with this patient Please note that parts of this document were created using voice recognition software and therefore may contain grammatical errors. Patient verbalizes understanding of instructions from today's visit and in agreement with treatmentplan. Questions answered. Agrees to call the office if questions, concerns of issues with acute symptoms not improving or if they worsen. See diagnoses and orders for additional plan(s). Allergies and medications were reviewed, list was updated, and refills given if needed. Past medical, surgical, social, and family history reviewed and updated as appropriate. Encouraged proper diet & exercise as well as compliance with taking medications. Age- appropriate health preventative measures were discussed. Return in about 4 months (around 08/04/2022) for Follow up on chronic conditions and medications.. Norm Parker APRN-CHELSIE documented in this encounterSam[facility]itan [facility]02-06-2023 Miscellaneous Notes* SN Routine - Britta Mantilla RN - 04/06/2022 1:16 PM EST SITUATION: [facility] routine visit completed today. spouse also present during today's visit. patient reports the following: Allergies--reviewed Medications--reviewed current medications Falls--None BACKGROUND: Reason for Home Care: ileostomy care and teaching. ASSESSMENT: SN greeted at door by patient no DME and demonstrates stable gait. Patient appears in no acute distress. Patient/CG concerns verbalized today: Pt reports that he still weak but feels that his stamina is very slowly improving. He reports that he still has a moderate amount of drainage from his rectum; surgeon is aware. He is seeing his PCP today. Vitals (see flow sheet for details): stable SN findings today: Pt sitting at dining room table, he reports thta he showered earlier this afternoon and it wore him out. pt appears tired today. SN checked orthostatic BP as does reports some dizziness with ambulation and BP does drop some. Pt has been drinking plenty of fluids according to his report. He has been drinking a variety of water, juices and his supplements. Pt did ostomy care with very little direction from SN today. Sn to order supplies and will order precut pouches and paste to simplify procedure for pt Pt reports that he has been eating but weight is down a pound this week. See intervention summary for education details. Patient demonstrated a need for further skilled SN services for ostomy management & education. Current Discharge plan: self-care and family support RECOMMENDATION: Next visit to focus on (be specific): ostomy teaching, possible plan for discipline dc next week. documented in this encounterSam[facility]02-03-2023 Miscellaneous Notes* PT ROUTINE/REASSESSMENT/RECERT/CASE MGMT - Isela Acharya PTA - 04/03/2022 11:30 AM EST SITUATION: spouse present during today's visit. patient reports the following since the last homecare visit: medications/allergies--no changes, no fall. patient reports he is getting stronger. 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 Thrombectomy and placementof new IVC Weight Bearing/Precaution Changes: no changes ASSESSMENT: Focus of visit increased reps w/ all exercises. denies increased pain after and onlymild fatigue. encouraged patient to cont w/ HEP and increasing walking times as able. Plan of care, goals, and visit frequency reviewed and agreed upon with patient and/or caregiver. Current Discharge Plan: independent with home exercise program Anticipate discharge by 04/23/22 RECOMMENDATION: Next visit to focus on add step over for balance See intervention summary for intervention/education details. documented in this encounterSamar[facility]02-02-2023 Miscellaneous Notes* SN Routine - Britta Mantilla RN - 04/02/2022 5:01 PM EST SITUATION: [facility] routine visit completed today. spouse also present during today's visit. patient reports the following: Allergies--reviewed Medications--reviewed current medications Falls--None BACKGROUND: Reason for Home Care: ostomy care and teaching ASSESSMENT: SN greeted at door by caregiver. Upon entrance patient found in chair Patient appears in no acute distress. Patient/CG concerns verbalized today: pt verbalizes that he continues to have mucus and bleeding from his rectum. He states that he reported this to Dr Cheung's nurse and she is not concened; she told him that this is to be expected. Pt feels that he is still is still so weak. Vitals (see flow sheet for details): stable SN findings today: Pt is sitting in recliner in living room. He reports that he took a shower this am, he had appts for ultras[facility] at [facility] today. He is tolerating more activity that he gives himself credit for. Sn reassured pt and pointed out what more that he is able to do now than hewas a few weeks ago. Pt had a lot of activity today but is willing to do the pouch change today. SN cur the pouch opening for him and applied the stoma paste for him. He removed the pouch, cleansed his skin, dried and applied his new pouch without SN assistance. SN discussed ordered precut pouches and he feels that he then could apply the stoma paste and be independent with the whole procedure. See intervention summary for education details. Patient demonstrated a need for further skilled SN services for ostomy management & education. Current Discharge plan: self-care RECOMMENDATION: Next visit to focus on (be specific): Pt to change pouch, SN to order supplies to increase independence and plan to look at dc from nursing within 2-3 weeks. documented in this encounterSam[facility]02-01-2023 Miscellaneous Notes* Telephone Encounter - Smitha Dawson RN - 04/01/2022 8:45 AM EST Called and spoke with patient He can't come off anticoagulant until May Will schedule surgery 06.04.22 and preop 05.20.2022 * Telephone Encounter - Smitha Dawson RN - 04/01/2022 8:29 AM EST Called and spoke with patient He can't come off anticoagulant until May * Telephone Encounter - [place]yna [facility] [place] 03/31/2022 4:15 PM EST [phone] Jai Luna called to schedule surgery. Electronically signed by Katerynaisidro [facility] [place] 03/31/2022 4:16 PM EST documented in this encounterSamaritan North [facility] Center01-31-2023 Miscellaneous Notes* PT ROUTINE/REASSESSMENT/RECERT/CASE MGMT - Isela Acharya PTA - 03/31/2022 2:31 PM EST SITUATION: spouse present during today's visit. patient reports the following since the last homecare visit: medications/allergies--no changes, no fall. patient reports he is doing ok. 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 Thrombectomy and placementof new IVC Weight Bearing/Precaution Changes: no changes ASSESSMENT: Focus of visit performed and progressed standing strength and balance exercises for HEP. functionalgait traiikng for household distance w//o AD. w/ cues for pacing and energy conservation. Plan of care, goals, and visit frequency reviewed and agreed upon with patient and/or caregiver. Current Discharge Plan: independent with home exercise program Anticipate discharge by 04/23/22 RECOMMENDATION: Next visit to focus on increase static standing times See intervention summary for intervention/education details. documented in this encounterSamaritan [facility] Center01-30-2023 Miscellaneous Notes* SN Routine - Britta Mantilla RN - 03/30/2022 2:16 PM EST SITUATION: [facility] routine visit completed today. spouse also present during today's visit. patient reports the following: Allergies--reviewed Medications--reviewed current medications Falls--None BACKGROUND: Reason for Home Care: multiple complications following colon cancer surgery including bleeding and PE's. ASSESSMENT: SN greeted at door by caregiver. Upon entrance patient found in chair Patient appears in no acute distress. Patient/CG concerns verbalized today: pt verbalizes that he hurt his shoulder with exercise but states that it is better now. He has been having some tenderness around the stoma but no signs of leakage. Pt's main complaint continues to be weakness. Vitals (see flow sheet for details): stable SN findings today: Pt is sitting in living room chair. He is willing to do some of the ostomy care today. He feels that he can try to change the bag as long as everything is ready for him when he gets to the bathroom. SN cut the flange and pt wants to use the paste. SN did this for him. Pt removed the pouch, wiped the area clean. There was no evidence of leakage on the back of the flange. Stoma is still protruding nicely and 1" in diameter. Pt does have a small amount of irritation at 6 oclock,reason unclear. Stoma powder used to this area. Pt was able to clean and dry the area and placed the new pouch with no help from SN. Stool is semi liquid to pudding like in consistency and is brown in color, adequate in amounts. Pt reports that his appetite has been fair but has been getting hungryfor more different foods. He has been taking fluids well. See intervention summary for education details. Patient demonstrated a need for further skilled SN services for ostomy management & education. Current Discharge plan: self-care and family support RECOMMENDATION: Next visit to focus on (be specific): pt to return demonstrate entire procedure if able for ostomy pouch change. [facility] Miscellaneous Notes* PT ROUTINE/REASSESSMENT/RECERT/CASE MGMT - Isela Acharya, SCOOP DRIVER - 03/27/2022 2:05 PM EST SITUATION: spouse present during today's visit. patient reports the following since the last homecare visit: medications/allergies--no changes, no fall. patient reports he over did it yesterday making a pie andis very tired today.. 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 Thrombectomy and placementof new IVC Weight Bearing/Precaution Changes: no changes ASSESSMENT: Focus of visit performed seated and standing exercises for strengthening and restorator for endurance. No increased pain reported and vitals stable throughout Plan of care, goals, and visit frequency reviewed and agreed upon with patient and/or caregiver. Current Discharge Plan: independent with home exercise program Anticipate discharge by 04/23/22 RECOMMENDATION: Next visit to focus on add mini sits See intervention summary for intervention/education details. documented in this [facility]Sam[facility]01[facility]23 Miscellaneous Notes* SN Routine - Doris Rivera RN - 03/26/2022 11:50 AM EST SITUATION: [facility] routine visit completed today. spouse also present during today's visit. patient and caregiver reports the following: Allergies--reviewed Medications--reviewed current medications Falls--None DME-Reviewed BACKGROUND: Reason for Home Care: ostomy management ASSESSMENT: SN greeted at door by caregiver. Upon entrance patient found in chair Patient appears in no acute distress. Vitals (see flow sheet for details): stable SN findings today: Pt presents today in his home his is present he express his ostomy has had some leakage. He express he has noted some bright red blood when wiping, he express occassional shappain intermintely in random spots in his head no blurred vision, dizziness noted. MD made aware. SNremoved and reapplied ostomy appliance this visit See intervention summary for education details. Patient demonstrated a need for further skilled SN services for chronic disease management & education, medication education, wound/skin care and ostomy management & education. Current Discharge plan: self-care and family support RECOMMENDATION: Next visit to focus on (be specific): ostomy bag how did it work? documented in this [facility]Sam[facility]23 Miscellaneous Notes* PT ROUTINE/REASSESSMENT/RECERT/CASE MGMT - Isela Acharya PTA - 03/25/2022 11:15 AM EST SITUATION: spouse present during today's visit. patient reports the following since the last homecare visit: medications/allergies--no changes, no fall. patient reports he is nt having a good day today. Tired today. 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 Thrombectomy and placementof new IVC Weight Bearing/Precaution Changes: no changes ASSESSMENT: Focus of visit gait training for household distances including stairs to basement. Akle to increasetime on restorator . vitals stable throughout Patient reported feeling better after therapy today Plan of care, goals, and visit frequency reviewed and agreed upon with patient and/or caregiver. Current Discharge Plan: independent with home exercise program Anticipate discharge by 04/23/22 RECOMMENDATION: Next visit to focus on add standing april See intervention summary for intervention/education details. documented in this encounterSam[facility]01-24-[facility]23 Miscellaneous Notes* SN Routine - Britta Mantilla RN - 03/24/2022 10:06 AM EST SITUATION: Senior [facility] routine visit completed today. spouse also present during today's visit. patient reports the following: Allergies--reviewed Medications--reviewed current medications Falls--None BACKGROUND: Reason for Home Care: hx of rectal CA with multiple complcations following initial surgery which required subsequent surgeries. Loop ileoxtomy in place. ASSESSMENT: SN greeted at door by caregiver. Upon entrance patient found in chair Patient appears in no acute distress. Patient/CG concerns verbalized today: pt reported the events of all of his appts from yesterday. SNnotes reports in chart review. Pt had ostomy pouch changed yesterday by stoma therapy. Vitals (see flow sheet for details): stable SN findings today: Pt is sitting in recliner. He gave an extensive report about all of his appts from yesterday. He states that the surgeon's office is considering a timeline for ostomy reversal. He expects a call from surgeon's office with the plan. Stoma pouch is intact without signs of leakage. Stool output is semi liquid brown stool in adequate but not excessive amounts. Pt is independent with emptying the pouch. He is going to try to do most of the pouch change on . Pt has a new template from stoma nurse that he will use. Recommend that he use the barrier ring. Abdomen is soft, pt reports is edge glue machine tender on the inside. Edema to L leg has resolved. Pt is ambulating with better posture and no device in the home. Spouse assisting with steps. Pt is going to transition from Lovenox to Eliquis when he is finished with his supply of lovenox; this will most likely not be for at least another month. . See intervention summary for education details. Patient demonstrated a need for further skilled SN services for medication education, safety and ostomy management & education. Current Discharge plan: self-care and family support RECOMMENDATION: Next visit to focus on (be specific): Have pt participate with ostomy pouch change, only assist if needed. documented in this encounterSam[facility]01[facility]23 History of Present illness Narrative* Isaura Benítez RN - 03/23/2022 2:26 PM EST ET/WOCN Nursing Consult Topic: ET/WOCN Consultation Note Outcome: Patient and spouse in A30 for post-op visit. Current pouching system appropriate but smaller aperture needed. New pattern made. Patient is currently being followed by [facility] and they are assisting him with pouch changes. Next Scheduled Visit: as needed Assessment Stoma Type: Loop ileostomy Diameter:1" rounded Location: RLQ Protrusion: Budded Mucosal condition and color: Red and moist Mucocutaneous junction Intact Peristomal Skin: Erythema and Denuded Location of Skin Impairment: in wide rim from 3-9 o'clock Peristomal contour: Rounded and slightly bulging Supportive Tissue: Soft Character of output: mushy orange liquid effluent Emptying frequency per day: 3-4 days Pouching System Pouching system removed: Coloplast SenSura Linda Soft Convex (5/8"-1 16") Cut-to-Fit Drainable Pouch (#[id number]), 4.2 Coloplast Brava Moldable Ring (#[id number]), elastic barrier strips Wearing time: 3 days Pouching system evaluation: aperture too large Recommendations: Skin Care: Apply ConvaTec Stomahesive powder to any areas of skin breakdown PRN until healed. Dust off excess. Pouching system Applied: Same as above but smaller aperture used and patient instructed to pull abdominal skin flat. Used 2x2 Hollihesive washer instead of ring to help heal skin Expected wearing time: 3-4 days Time Increment: 1 hour Isaura Benítez RN, BSN, CWOCN documented in this encounterSam[facility]01-23-2023 History of Present illness Narrative* Skyla Alex, FLOW SPECIALIST.SECURITY SYSTEM INSTALLER - 03/23/2022 1:30 PM EST COLORECTAL SURGERY Post-Op Visit Jai Luna returns for a post-operative visit after undergoing surgery, on 01/27/2022. SURGEON: Dutch Cheung M.D. 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 Dissection carried down to the pelvic floor. Stapled coloanal anastomosis with EEA #31 and donuts intact and intact hemostatic staple line visualized on flexible sigmoidoscopy.Negative leak test and diverting loop ileostomy. OPERATIVE INDICATIONS: This 71-year-old gentleman with a history of rectal cancer, was referred to me for further management. He underwent a modified Charlene protocol first and there was some response;however on MRI, there was some residual disease and therefore a Tumor Board decision was to proceedwith surgery. 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 He has no specific complaints, except low back and hip pain. Stoma output: less than 1200 per day. PT and home care nursing coming to the house. Bowel stoppers:none. Current diet: soft. N/V none. Gets full quickly. Protein drinks. F/C none. Incision/wound is healed. Seen by vascular today and plan is to switch to Eliquis. Blood thinners until at least May. Path: FINAL DIAGNOSIS A-B. Sigmoid colon and rectum, low anterior resection: - No residual/recurrent cancer (see synoptic). - No tumor in twelve lymph nodes (0/12). Synoptic Report COLON AND RECTUM: Resection, Including Transanal Disk Excision of Rectal Neoplasms 8th Edition - Protocol posted: 08/28/2020 COLON AND RECTUM, RESECTION - All Specimens SPECIMEN Procedure Low anterior resection Macroscopic Evaluation of Mesorectum Complete TUMOR Tumor Site Cannot be determined: no residual cancer Histologic Type no residual cancer Histologic Grade Not applicable Tumor Size Cannot be determined: no residual cancer Tumor Extent No evidence of primary tumor Macroscopic Tumor Perforation Not identified Lymphovascular Invasion Not identified Perineural Invasion Not identified Treatment Effect Present, with no viable cancer cells (complete response, score 0) MARGINS Margin Status for Invasive Carcinoma All margins negative for invasive carcinoma Margin Status for Non-Invasive Tumor All margins negative for high-grade dysplasia / intramucosal carcinoma and low-grade dysplasia REGIONAL LYMPH NODES Regional Lymph Node Status All regional lymph nodes negative for tumor Number of Lymph Nodes Examined 12 Tumor Deposits Not identified PATHOLOGIC STAGE CLASSIFICATION (pTNM, AJCC 8th Edition) Reporting of pT, pN, and (when applicable) pM categories is based on information available to the pathologist at the time the report is issued. As per the AJCC (Chapter 1, 8th Ed.) it is the managingphysician s responsibility to establish the final pathologic stage based upon all pertinent information, including but potentially not limited to this pathology report. TNM Descriptors y (post-treatment) pT Category pT0 pN Category pN0 . Current Outpatient Medications Medication Sig Dispense Refill atorvastatin (LIPITOR) 40 mg tablet Take 1 tablet by mouth daily at bedtime. For cholesterol per [facility]. metoprolol tartrate, short acting, (LOPRESSOR) 25 mg tablet Take a half tablet by mouth twice daily. 30 tablet 0 coenzyme Q10 (COENZYME Q-10) 100 mg cap capsule Take 100 mg by mouth once daily. Cholecalciferol, Vitamin D3, 50 mcg (2,000 unit) cap Take 1 capsule by mouth two times a week. acetaminophen (TYLENOL) 500 mg tablet Take 1-2 tablets by mouth every 6 hours as needed for pain. [START ON 03/24/2022] apixaban (ELIQUIS) 5 mg tab(s) Take 1 tablet by mouth twice daily. 60 tablet 3 tamsulosin (FLOMAX) 0.4 mg Take 1 capsule by mouth once daily. (Patient not taking: Reported on 03/23/2022) 14 capsule 0 No current facility-administered medications for this visit. ALLERGIES Allergen Reactions Clindamycin GI Upset Codeine GI Upset Ht 167.6 cm (5' 6") Wt 70.4 kg (155 lb 3.2 oz) BMI 25.05 kg/m Abdominal examination: soft, non-distended, and non-tender without masses or hernias. Wound is wellhealed. See WOCN note Anal area with mild erythema, MARIAJOSE deferred Lumber Piler Operator present: Yes, Alycia Nunn Rectal Cancer Tumor Board Post-Operative Discussion Note Date of conference: 02/11/2022 Date of surgery: 01/27/2022 Pre-treatment clinical stage: T3dN+ Pre-treatment CEA level: CEA (ng/mL) Date Value 06/09/2021 2.2 Neoadjuvant therapy prior to surgery: Yes: Other: CHARLENE protocol Neoadjuvant therapy date of completion: 07/21/2021 He completed Modified Charlene chemoradiation on July 21, completed restaging in August, and was presented to [facility]. It was recommended that he follow up in three months to assess response to determineif he can proceed with watch and wait or should have surgery. He had this follow up on 12.10.2021 and was presented to [facility] on 12.17.2021 where it was recommended that due to persistent radiographic evidence of tumor regrowth he should proceed with surgery and CT scans for full staging. Surgical procedure: low anterior resection Surgical approach: Robotic En bloc resection: Yes Metastasectomy: None Final pathology stage: n'/a Lymph Nodes involved/examined: 0/12 Lymphovascular or perineural invasion: No Circumferential margin: Negative Distal margin: clear Mesorectal grade: Complete AJCC tumor regression grade: N/A MMR status: \\ Adjuvant therapy recommended: No Clinical Trial Candidate: No Other Discussion: surveillance Disciplines present: Colorectal Surgery, Medical Oncology, Radiation Oncology, Radiology and Anatomic Pathology This is the summary of the general discussion provided at tumor board conference. The final recommendations will be made by the primary health care team and the patient after discussing the benefits,risks and alternatives to the various treatment options. Assessment Assessment: Appetite: Eating and drinking well Stoma: no high output, weight loss has stabilizing, maintaining Incision/wound: WNL Overall doing better, recovering Starting to be able to stand more than 1 minute Plan: No restrictions from [facility] perspective Will need follow up with oncology for surveillance Will send message to [place] to coordinate tentative pending preops and clearance by Dr. Cheung- will need to coordinate with vascular not sure when he can stop blood thinner Per [facility] medicine Dr. Balderrama: PLEASE LET ME KNOW IF YOUR SURGICAL TEAM IS PLANNING ANY ADDITIONAL PROCEDURES OR SURGERIES. PROVIDED NO SUCH PROCEDURES ARE PLANNED, IT IS OK TO TRANSITION FROM LOVENOX TO ELIQUIS TOMORROW. WHEN TRANSITIONING FROM ONE MEDICATION TO ANOTHER: STOP LOVENOX START ELIQUIS TWICE A DAY IF YOU HAVE ANY RECURRENT VOMITING OR FREQUENT LARGE VOLUME STOOL, LET ME KNOW WE MAY NEED TO CHANGE YOU BACK TO INJECTABLE BLOOD THINNER. CONTINUE MONITORING FOR BLEEDING Skyla Alex APRN.CNP documented in this encounterSam[facility]01-23-2023 Instructions* Patient Instructions* Terry Balderrama MD - 03/23/2022 11:58 AM EST PLEASE LET ME KNOW IF YOUR SURGICAL TEAM IS PLANNING ANY ADDITIONAL PROCEDURES OR SURGERIES. PROVIDED NO SUCH PROCEDURES ARE PLANNED, IT IS OK TO TRANSITION FROM LOVENOX TO ELIQUIS TOMORROW. WHEN TRANSITIONING FROM ONE MEDICATION TO ANOTHER: STOP LOVENOX START ELIQUIS TWICE A DAY IF YOU HAVE ANY RECURRENT VOMITING OR FREQUENT LARGE VOLUME STOOL, LET ME KNOW WE MAY NEED TO CHANGE YOU BACK TO INJECTABLE BLOOD THINNER. CONTINUE MONITORING FOR BLEEDING documented in this encounterSam[facility]01-23-2023 History of Present illness Narrative* Terry Balderrama MD - 03/23/2022 11:00 AM EST Images from the original note were not included. [facility] [place] [facility] Department of Cardiovascular Medicine SECTION OF VASCULAR MEDICINE OUTPATIENT VISIT DATE March 23, 2022 OUTPATIENT VISIT TYPE FOLLOW UP Jai Luna is a 72 year old male here today for hospital follow up Patient is accompanied by his . 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 Follow up images CT abdomen/pelvis on 2022 demonstrated perisplenic/perigastric hematoma and hemoperitoneum increased since 02/01/2022. S/p US guided paracentesis with 3L of dark blood evacuated. Seen by cardiology for type II myocardial infarction and acute diastolic congestive heart failure, for which laxis 40 mg was advised. Vascular medicine was consulted re: new diagnosis of bilateral segmental- subsegmental PE 02/12/2022nd bilateral calf DVT with chronic appearing changes in the R popliteal vein. Etiology of the pulmonary embolism was provoked in the setting of hospitalization and critical illness despite of resumption of VTE prophylaxis. Patient was started on IV UFH 02/12-02/14 and transitioned to enoxaparin. While on anticoagulation experienced increase in abdominal pain. CT abd/pelvis showed slight increase in hematoma and more organized appearing. Hgb 8.6 (9.3, 10.8 previously). Anticoagulation was stopped, and patient underwent IVC filter placement 02/16/2022. On 03/02/2022 patient resented with BANKS and presyncopal episode, found to have progression of bilateral PE with new filling defects in the distal R and L main pulmonary arteries. PESI score 122, class IV. New findings of extensive DVT L CIV through calf veins and R external iliac through femoral veins and a second soleal vein. PERT team consulted and recommended aspiration thrombectomy of pulmonaryarteries, mechanical IVC and right common iliac vein thrombectomy, IVC filter retrieval and placement. Managed with IV UFH and discharged on enoxaparin. Patient presents for hospital follow up Patient was discharged on 03/10/2022. Interval history: ED visits or hospitalizations: no New symptoms or concerns: no Since his discharge his feels stronger, but still feel fairly fatigued. He has no chest pain, SOB, palpitations, lightheadedness or other signs of PE. No acute swelling, pain, redness, increased warmth or other sign of DVT. Patient reports significant improvement of the left leg which is almost the same size as the other leg. He has intermittent pain in the left thigh if standing for a long time. He also has lower back acheif sitting or standing for a long time. This pain has been occurring since his hospitalization, andimproved since then. He has no numbness, but left leg feels mildly weaker than the right leg. He istaking few Tylenol to help him sleep. He reports improvement of the discharge from the anus, at first bloody, but turned mucous recently. No bleeding including epistaxis, hemoptysis, hematemesis, hematuria, hematochezia, melena, excessive bruising. Patient is taking lovenox 80 mg BID No recent blood transfusions. 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 coronary artery bypass graft 01/18/2013 Bilateral carotid artery stenosis 04/30/2021 Coronary atherosclerosis of unspecified type of vessel, [place] or graft Coronary artery disease Diverticulosis of colon (without mention of hemorrhage) Dyslipidemia 01/16/2013 History of transfusion Hypertension Rectal malignant neoplasm (HCC) 05/29/2021 Rectal mass PAST SURGICAL HISTORY Procedure Laterality Date COLONOSCOPY 03/20/2021 COLONOSCOPY FLX DX W/COLLJ SPEC WHEN PFRMD 08/24/2007 Colonoscopy CORONARY ARTERY BYP W/VEIN & ARTERY GRAFT 3 VEIN 03/01/1994 CABG, three grafts EYE SURGERY HX HEART SURGERY HX PERC TRANSL COR ANGIO 10/31/2003 Percutaneous Transluminal Coronary Angio Status PROSTATE SURGERY HX STRABISMUS RECESSION/RESCJ 1 [facility] [place] Strabismus surgery TONSILLECTOMY HX TONSILLECTOMY PRIMARY/SECONDARY <AGE 12 Tonsillectomy VASCULAR SURGERY PROCEDURE Allergies: Clindamycin and Codeine CURRENT MEDICATIONS: Current Outpatient Medications Medication Sig atorvastatin (LIPITOR) 40 mg tablet Take 1 tablet by mouth daily at bedtime. For cholesterol per [facility]. enoxaparin (LOVENOX) 80 mg/0.8 mL Inject 0.8 mL subcutaneously every 12 hours. metoprolol tartrate, short acting, (LOPRESSOR) 25 mg tablet Take a half tablet by mouth twice daily. coenzyme Q10 (COENZYME Q-10) 100 mg cap capsule Take 100 mg by mouth once daily. Cholecalciferol, Vitamin D3, 50 mcg (2,000 unit) cap Take 1 capsule by mouth two times a week. acetaminophen (TYLENOL) 500 mg tablet Take 1-2 tablets by mouth every 6 hours as needed for pain. tamsulosin (FLOMAX) 0.4 mg Take 1 capsule by mouth once daily. No current facility-administered medications for this visit. Testing since Last Office Visit: Component Latest Ref Rng & Units 03/08/2022 03/09/2022 03/10/2022 03/18/2022 WBC 3.70 - 11.00 k/uL 9.04 8.33 7.77 7.81 RBC 4.20 - 6.00 m/uL 2.66 (L) 2.71 (L) 2.68 (L) 3.28 (L) Hemoglobin 13.0 - 17.0 g/dL 8.1 (L) 8.2 (L) 8.0 (L) 10.2 (L) Hematocrit 39.0 - 51.0 % 26.0 (L) 26.6 (L) 26.1 (L) 34.2 (L) MCV 80.0 - 100.0 fL 97.7 98.2 97.4 104.3 (H) MCH 26.0 - 34.0 pg 30.5 30.3 29.9 31.1 MCHC 30.5 - 36.0 g/dL 31.2 30.8 30.7 29.8 (L) RDW-CV 11.5 - 15.0 % 18.9 (H) 19.2 (H) 19.3 (H) 19.2 (H) Platelet Count 150 - 400 k/uL 373 410 (H) 422 (H) 487 (H) MPV 9.0 - 12.7 fL 9.8 9.7 9.7 9.6 Absolute nRBC <0.01 k/uL 0.02 (H) <0.01 <0.01 <0.01 Glucose 74 - 99 mg/dL 92 BUN 9 - 24 mg/dL 17 Creatinine 0.73 - 1.22 mg/dL 0.75 Sodium 136 - 144 mmol/L 138 Potassium 3.7 - 5.1 mmol/L 4.3 Chloride 97 - 105 mmol/L 104 CO2 22 - 30 mmol/L 20 (L) Anion Gap 9 - 18 mmol/L 14 Calcium 8.5 - 10.2 mg/dL 9.2 eGFR >=60 mL/min/1.73m 96 REVIEW OF SYSTEMS: Card: No SOB, c/p, dizziness, lightheadedness, palpitations, PND/Orthopnea or Syncope. +chest pain with over exertion Pulm:No cough or sputum production Gastro:no bowel changes.+ Intermittent nausea , and stomach with a dull ache GenUr:no urinary symptoms. Endo:chronic fatigue and significant weight loss-recent surgeries Neuro:weakness- Left arm and leg weakness Rheum:chronic back pain Infect:no fevers, chills, rigors or night sweats. Skin:no rash Heme:no bruising PHYSICAL EXAM: BP 113/77 Pulse 97 Wt 68 kg (150 lb) BMI 24.96 kg/m BMI 24.96 kg/(m^2) General appearance: Alert, cooperative, pleasant, in no acute distress. Appears fatigued. Heart: regular rate and rhythm, without murmur Lungs: clear to auscultation, without rales or wheeze, good air exchange Abdomen: soft, nondistended, with normal bowel sounds, nontender. Ostomy bag with brown stool Ext: No cyanosis or clubbing. Edema: trace pitting edema in the left leg. No erythema or tenderness. 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 S/p S/US guided paracentesis evaluation of perisplenic/perigastric hematoma and hemoperitoneum with 3L blood evacuated _ provoked bilateral segmental-subsegmental PE 02/12/2022 and bilateral calf DVT with chronic appearing changes in the R popliteal vein despite of VTE prophylaxis. Treated with IV UFH to enoxaparin 02/12-02/16/22 _ 02/16/2022 s/p IVC filter due to interval increase in abdominal hematoma _ 03/02/2022 submassive high risk PE with progression of bilateral PE with new filling defects in thedistal R and L main pulmonary arteries. PESI score 122, class IV. New findings of extensive DVT L CIV through calf veins and R external iliac through femoral veins and a second soleal vein. While offanticoagulation. Status post aspiration thrombectomy of pulmonary arteries, mechanical IVC and right common iliac vein thrombectomy, IVC filter retrieval and placement. _ discharged on 03/10/2022 on enoxaparin 80 mg BID which currently takes _ CABG in the late , s/p PCIs, previously on Plavix outpatient, type II myocardial infarction and acute diastolic congestive heart failure 01/2022 in the setting of critical illness Patient presents for hospital follow up No acute events since discharge. Patient feels getting stronger. No clinically apparent signs of bleeding or new VTE. Current anticoagulation: enoxaparin 80 mg BID. Weight 70 kg PLAN: Continue therapeutic anticoagulation to complete minimum of 3 months of anticoagulation since the most recent VTE Duration of anticoagulation to be ultimately determined. Considering clinical stability, it is reasonable to transition the anticoagulation from weight based enoxaparin to enoxaparin 5 mg BID. Rx provided. Patient will inform if planned for procedures or surgeries in the future; I will assist with perioperative anticoagulation management. We discussed importance of monitoring for s/s of VTE, bleeding as well as GI function (vomiting, increased ostomy output) and prompt evaluation if symptomatic. IVC filter retrieval will be arranged in the future. RTC 3 months, earlier PRN TERRY BALDERRAMA MD documented in this encounterSam[facility]01-[facility]23 Miscellaneous Notes* PT ROUTINE/REASSESSMENT/RECERT/CASE MGMT - Isela Acharya PTA - 03/19/2022 11:31 AM EST SITUATION: spouse present during today's visit. patient reports the following since the last homecare visit: medications/allergies--no changes, no fall. patient reports he is doing ok. BACKGROUND: Diagnoses (reason for Home Care): Hosp /- U[place]ano PE, malpositioned IVC. Thrombectomy and placementof new IVC Recent history -: malignant neoplasm rectum 07/20, followed by chemo and radiation . tumor resectionand temporary ileostomy 01/27/22 Hosp 02/01- for intrabdominal bleed w/ pseudoaneurysm of gastric artery. complicated by PE, Weight Bearing/Precaution Changes: no changes ASSESSMENT: Focus of visit performed and progressed LE strength exercises including restorator for enfdurance. Denies increased pain but did report of "good fatigue" after Plan of care, goals, and visit frequency reviewed and agreed upon with patient and/or caregiver. Current Discharge Plan: independent with home exercise program Anticipate discharge by TBD RECOMMENDATION: Next visit to focus on increase time on restorator and add standing hip abduction See intervention summary for intervention/education details. documented in this encounterSam[facility]01-19-2023 Miscellaneous Notes* SN Routine - Britta Mantilla RN - 03/19/2022 9:03 AM EST SITUATION: [facility] routine visit completed today. spouse also present during today's visit. patient reports the following: Allergies--reviewed Medications--reviewed current medications Falls--None BACKGROUND: Reason for Home Care: post hospital for PE, complications post surgery, ileostomy. ASSESSMENT: SN greeted at door by caregiver. Upon entrance patient found in chair Patient appears in no acute distress. Patient/CG concerns verbalized today: no special concerns Vitals (see flow sheet for details): stable SN findings today: Pt is sitting in recliner, reports that he was out yesterday for medical appt and reports that "it wore me out" but felt good to get out. Pt reports that he did not sleep very welllast night, he reports that the "ache" in his abdomen is tolerable but is constant and sometimes affectes his sleep. Abdomen is soft and nontender to touch. Ileostomy is functioning well, semiliquid brown stool in adequate amounts. Ileostomy pouch changed today by SN, pr feels that he may be ready to do this himself next week. He reports that he is still very weak. He states that he has been doing the home exercises and he can feel in his thighs. Sn notes edema to L lower leg and foot today. SN instructed pt on elevation and ankle pump exercises. L leg is warm and color is good. Pt reports that his appetite has been fair, he feels that he is eating adequately, but can't eat much at a setting. Sn instructed pt to continue to eat small frequent meals, ramon food very well, continue to drink plenty of fluids. See intervention summary for education details. Patient demonstrated a need for further skilled SN services for chronic disease management & education, medication education, safety and ostomy management & education. Current Discharge plan: self-care and family support RECOMMENDATION: Next visit to focus on (be specific): assess if pt is able to participate in ostomy care, CP assessment. documented in this encounterSam[facility]01-18-2023 History of Present illness Narrative* Russ Monteiro MD - 03/18/2022 12:52 PM EST This note was created using NoteWriter. Subjective Patient presents with: Hospital F/U PCP No primary care provider on file. Jai Luna is a 72 year old male here with his . History is rather complicated, but he was just discharged March 10 for pulmonary embolism, pulmonary infarcts, DVT s/p thrombectomies, IVC removal, IVC replacement. These was in the setting of recent diagnosis of rectal cancer, low anterior resection in December, followed by prolonged admission in January for intraabdominal hemorrhage, coil embolization of splenic artery for gastric artery pseudoaneurysm, provoked DVT and PE treated with IVC filter, anticoagul ation was held due ongoing concerns with intraabdominal hematoma. PE progressed with dyspnea and syncope, hence his last admission for thrombectomies. He was now on lovenox. He complained of profound fatigue, even just standing up and ambulating across the room. He was complaining of why he had to come in for a follow up. We reviewed his medications. He had urine retention which had improved, and he was confident he will urinate fine without tamsulosin. His metoprolol was reduced. He normally saw Dr. Roa for his coronary artery disease. Review of Systems Constitutional: Positive for appetite change and fatigue. Negative for chills, diaphoresis and fever. HENT: Negative. Respiratory: Negative for cough, chest tightness, shortness of breath and wheezing. Cardiovascular: Positive for leg swelling. Negative for chest pain and palpitations. Gastrointestinal: Positive for anal bleeding. Negative for nausea and vomiting. Genitourinary: Negative for difficulty urinating and dysuria. Musculoskeletal: Positive for gait problem and myalgias. Neurological: Positive for weakness. ACTIVE PROBLEM LIST Acoustic Neuroma (Hcc) Atherosclerosis of Coronary Artery Bypass Graft Bilateral Carotid Artery Stenosis Cervical Radiculopathy Dyslipidemia Essential Hypertension Hearing Loss History of Cardiac Catheterization History of Myocardial Infarction Status Post Coronary Artery Bypass Graft Rectal Malignant Neoplasm (Hcc) Obesity, Class I, Bmi 30-34.9 Rectal Cancer (Hcc) Ileostomy in Place (Hcc) Finesse (Acute Kidney Injury) (Hcc) Malnutrition of Mild Degree (Hcc) Obesity, Class II, Bmi 35-39.9 Urinary Retention Hypokalemia Pulmonary Embolism (Hcc) Pulmonary Embolism and Infarction (Hcc) Social History Tobacco Use Smoking status: Former Packs/day: 1.00 Years: 30.00 Pack years: 30.00 Types: Cigarettes Quit date: 01/29/2000 Years since quittin.1 Smokeless tobacco: Never Vaping Use Vaping Use: Never used Substance Use Topics Alcohol use: Yes Comment: rarely Drug use: No ALLERGIES Allergen Reactions Clindamycin GI Upset Codeine GI Upset Current Outpatient Medications Medication Sig enoxaparin (LOVENOX) 80 mg/0.8 mL Inject 0.8 mL subcutaneously every 12 hours. metoprolol tartrate, short acting, (LOPRESSOR) 25 mg tablet Take a half tablet by mouth twice daily. tamsulosin (FLOMAX) 0.4 mg Take 1 capsule by mouth once daily. coenzyme Q10 (COENZYME Q-10) 100 mg cap capsule Take 100 mg by mouth once daily. Cholecalciferol, Vitamin D3, 50 mcg (2,000 unit) cap Take 1 capsule by mouth two times a week. acetaminophen (TYLENOL) 500 mg tablet Take 1-2 tablets by mouth every 6 hours as needed for pain. atorvastatin (LIPITOR) 40 mg tablet Take 1 tablet by mouth daily at bedtime. For cholesterol per [facility]. No current facility-administered medications for this visit. Objective BP 110/66 (BP Site: Right Arm, BP Position: Sitting, BP Cuff Size: Large Adult) Pulse 84 Temp (!) 35.8 C (96.5 F) (Temporal) Resp 20 Wt 71.2 kg (157 lb) SpO2 100% BMI 26.13 kg/m Physical Exam Constitutional: General: He is not in acute distress. Appearance: He is not diaphoretic. Comments: In a wheelchair, not on oxygen. Eyes: General: No scleral icterus. Conjunctiva/sclera: Conjunctivae normal. Cardiovascular: Rate and Rhythm: Normal rate and regular rhythm. Heart sounds: No murmur heard. No gallop. Pulmonary: Effort: Pulmonary effort is normal. Breath sounds: Normal breath sounds. No wheezing or rales. Abdominal: General: There is no distension. Palpations: Abdomen is soft. Musculoskeletal: General: No tenderness. Right lower le+ Edema present. Left lower le+ Edema present. Skin: General: Skin is warm and dry. Neurological: General: No focal deficit present. Mental Status: He is alert and oriented to person, place, and time. Motor: Weakness present. Comments: Gait not tested. Psychiatric: Attention and Perception: Attention normal. Speech: Speech normal. Comments: Irritable. Assessment and Plan 1. Anemia, unspecified type - ICD9: 285.9, ICD10: D64.9 (primary diagnosis) Recheck. Consider outpatient transfusion if worse. - CBC 2. Pulmonary embolism and infarction (HCC) - ICD9: 415.19, ICD10: I26.99 Follow up with vascular next week. 3. Hypokalemia - ICD9: 276.8, ICD10: E87.6 Recheck - BASIC METABOLIC PNL 4. 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) - ICD9: V44.2, ICD10: Z93.2 Follow up with colorectal next week. 5. Generalized weakness - ICD9: 780.79, ICD10: R53.1 Home Care, PT ongoing. I stressed importance of primary care, and care coordination. His is a patient of [facility] and he wished to establish with her as well. Russ Monteiro MD documented in this encounterSam[facility]01-18-2023 Instructions* Patient Instructions* Russ Monteiro MD - 03/18/2022 12:00 PM EST BLOOD WORK TODAY. documented in this encounterSamar[facility]01-15-2023 Miscellaneous Notes* SN Routine - Britta Mantilla RN - 03/15/2022 2:31 PM EST SITUATION: [facility] routine visit completed today. spouse also present during today's visit. patient reports the following: Allergies--reviewed Medications--reviewed current medications Falls--None BACKGROUND: Reason for Home Care: multiple complications. ASSESSMENT: SN greeted at door by caregiver. Upon entrance patient found in chair Patient appears in no acute distress. Patient/CG concerns verbalized today: pt verbalizes that he started noticing some leaking from ostomy yesterday but did not think that it was too bad and he cannot stand long enough to change his ostomy pouch. Vitals (see flow sheet for details): stable SN findings today: Pt is sitting in recliner. Pt reports that he is still so weak but is feeling like he is getting a little stronger each day. He states that he was previously independent with pouchchange but is now not able to stand long enough in the bathroom to do it. Spouse watched SN do the care today. Pt did have some evidence of leakage but no skin irritation as a result. Periwtomal skinis in good condition. One piece Coloplast flat pouch placed using barrier ring. Elastic barrier strips placed per pt request. Stool is brown in color, varies from semi liquid to pudding like in consistency. Abdomen is soft and non tender. Pt is having mild shortness of breath with activity, lungs are clear. See intervention summary for education details. Patient demonstrated a need for further skilled SN services for safety and ostomy management & education. Current Discharge plan: self-care and family support RECOMMENDATION: Next visit to focus on (be specific): ostomy pouch change, CP assessment. documented in this encounterSam[facility]01-14-2023 Miscellaneous Notes* CARE COORDINATION - Savanna Galan RN - 03/14/2022 12:33 PM EST see case comm documented in this encounterSamaritan [facility]01-12-2023 Miscellaneous Notes* Telephone Encounter - Leandro Cruz RN - 03/12/2022 12:[address]I Dutch Cheung; Patient was not independent with ostomy care prior to being readmitted to hospital on 03/02/22-03/10/22. He is being seen today per therapy for a resumption of home health care. He will also need a referral for prison to continue ostomy instruction and care. Please have your office contact [facility] to place the SN EVAL order. We would like to be able to see him by tomorrow if possible. Thank you in advance for your review of this request. Leandro Cruz RN-[facility]. documented in this encounterSamaritan [facility] Center01-12-2023 Miscellaneous Notes* PT SOC/NORRIS/FOLLOW UP/OTHER - Estefany Stern, PT - 03/12/2022 9:01 AM EST SITUATION: spouse present during today's visit. patient reports the following since the last homecare visit: medications/allergies--no changes, no fall. patient reports he was awake a lot last night.still in bed on my arrival . BACKGROUND: Hosp 03/02-10 [place]ano PE, malpositioned IVC. Thrombectomy and placement of new IVC Recent history -: malignant neoplasm rectum 07/20, followed by chemo and radiation . tumor resectionand temporary ileostomy 01/27/22 Hosp 02/01- for intrabdominal bleed w/ pseudoaneurysm of gastric artery. complicated by PE, Past Medical History: Acoustic Neuroma (Hcc) Atherosclerosis of Coronary Artery Bypass Graft Bilateral Carotid Artery Stenosis Cervical Radiculopathy Dyslipidemia Essential Hypertension History of Cardiac Catheterization History of Myocardial Infarction Status Post Coronary Artery Bypass Graft Rectal Malignant Neoplasm (Hcc) Obesity, Class I, Bmi 30-34.9 Rectal Cancer (Hcc) Ileostomy in Place (Hcc) Postoperative Pain Intraabdominal Hemorrhage Respiratory Insufficiency Weight Bearing or Surgical Precautions: no lifting ASSESSMENT: [facility]. Reviewed and explained homecare services. Plan of care, goals, and visit frequency developed, reviewed, and agreed upon with patient and/or caregiver. Patient Goal: get my strength back Patient will benefit from continued physical therapy to address the following deficits: strength, balance, gait, endurance, transfers and stair negotiation. Current Discharge Plan: family support. Anticipate discharge by 04/25/22. RECOMMENDATION: Next visit to focus on review HEP, gait, activity tolerance Agreeable to PT; declining OT. Pt was originally ordered SN on discharge from hospital then it was removed. Pt still in need of SNfor post ostomy care . T/c to Line [employer] Bhavna Cruz who obtained nursing orders See intervention summary for intervention/education details. documented in this encounterSamaritan [facility] Center01-05-2023 Miscellaneous Notes* Telephone Encounter - Leandro Cruz RN - 03/05/2022 9:[address] Ramiro Cheung; This message is to alert you that your home health patient was admitted to [facility] on 03/02/22 for bilateral PE. All home health services have been placed on HOLD at this time. Leandro Cruz RN-[facility]. documented in this encounterSamaritan North [facility] Center01-04-2023 Miscellaneous Notes* Telephone Encounter - Tejal Hawkins LPN - 03/04/2022 10:24 AM EST Welcome Home Call: a. Date and Time: 10:24 AM 03/04/2022 b. Contact name/relationship: Marilu (Spouse) c. Have you been active with any Home Care company in the last 60 days(such as help with bathing, filling medications, checking your blood pressure) ? Yes, active with [facility]. d. Was patient given Flu shot this Season (After Oct,): No: na e. [facility] will be providing your care, are you agreeable to starting these services? yes (yes or no) f. Do you have any upcoming appointments in the next few days, or restrictions to your schedule? no g. Caregiver: Marilu (Spouse) h. Confirmed Visited Location and preferred #: [phone] Please keep our your medications both over the counter and prescribed out for the home care to review, your hospital discharge instructions and write down any questions you might have. In order to maintain a safe environment for our caregivers, [facility] requires anyanimals or weapons present in the home be located in a secured location. Our clinicians will call you the night before or the morning of the appointment. Their # may come up restricted but they'll leave a VM for you. In case you have any questions or concerns in the meantime, our # is [phone], option 5 Thank you for your time and have a great day. Tejla Hawkins LPN documented in this encounterSamaritan North [facility] Center01-04-2023 Miscellaneous Notes* Telephone Encounter - Tejal Hawkins LPN - 03/04/2022 10:22 AM EST Jermaine MENDEZ, PHD Please advise if you are agreeable to signing and following for [facility] services? Our Clinicians will be sending the Plan of Care to you for review and approval. They will reach out for any appropriate orders required to provide home care services for the patient. We are not able to initiate HHC services without a following provider. Home care clinicians may also obtain orders from [facility] Providers Thank you and we would be happy to answer any questions. Tejal Hawkins LPN 03/04/2022 10:22 AM * Telephone Encounter - Holly Rivera LPN - 03/03/2022 11:53 AM EST Ramiro CHEUNG, Jermaine Oswald, PHD Please advise if you are agreeable to signing and following for HHC services? Our Clinicians will be sending the Plan of Care to you for review and approval. They will reach out for any appropriate orders required to provide home care services for the patient. We are not able to initiate HHC services without a following provider. Home care clinicians may also obtain orders from [facility] Thank you and we would be happy to answer any questions. Holly Rivera LPN [facility] Admissions Intake Nurse 03/03/2022 11:53 AM documented in this encounterSamaritan North Health Center01-03-2023 Miscellaneous Notes* HH CARE COORDINATION - Leandro Cruz RN - 03/03/2022 8:30 AM EST SN contacted Dr.I Dutch Cheung on 03/05/21 for the following: patient has been admitted to [facility] 03/02/22 for bilateral PE's. documented in this encounterSamaritan North [facility] Center01-01-2023 Miscellaneous Notes* Telephone Encounter - Deborah Epps RN - 03/01/2022 7:17 PM EST Reason for call: states that patient was recently discharged from the hospital. She states that he just started having chest pain and difficulty breathing. She states that he almost passed out. will call 911 now. Reason for Disposition SEVERE difficulty breathing (e.g., struggling for each breath, speaks in single words) Protocols used: Chest [id number] documented in this encounterSamaritan North Health Center12-30-2022 Hospital Discharge instructions Additional Instructions Follow-up with Dr. Cheung at the [facility] in the next 1 to 2 weeks. Return with increased rectal bleeding, new or worsening symptoms.[facility] Work Phone: [phone]) 173-346912-29-2022 Miscellaneous Notes* PT EVALUATION - Estefany Stern, PT - 02/26/2022 9:01 AM EST SITUATION: spouse present during today's visit. patient reports the following since the last homecare visit: medications/allergies--no changes, no fall. patient reports he was awake a lot last night. still in bed on my arrival . 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 complicated by PE, Past Medical History: Acoustic Neuroma (Hcc) Atherosclerosis of Coronary Artery Bypass Graft Bilateral Carotid Artery Stenosis Cervical Radiculopathy Dyslipidemia Essential Hypertension History of Cardiac Catheterization History of Myocardial Infarction Status Post Coronary Artery Bypass Graft Rectal Malignant Neoplasm (Hcc) Obesity, Class I, Bmi 30-34.9 Rectal Cancer (Hcc) Ileostomy in Place (Hcc) Postoperative Pain Intraabdominal Hemorrhage Respiratory Insufficiency Weight Bearing or Surgical Precautions: no lifting ASSESSMENT: Patient [facility]. Reviewed and explained homecare services. Plan of care, goals, and visit frequency developed, reviewed, and agreed upon with patient and/or caregiver. Patient Goal: get my stamina back Patient will benefit from physical therapy to address the following deficits: aerobic capacity. Current Discharge Plan:independent with home exercise program. Anticipate discharge by 02/26/22 RECOMMENDATION: pt demonstrates good understanding of techniques to gradually increase functional stamina See intervention summary for intervention/education details. documented in this encounterSamaritan North Health Center12-28-2022 Miscellaneous Notes* SN SOC - Jovanna Heaton RN - 02/25/2022 9:35 AM EST SITUATION: [facility] SOC visit completed today. spouse also present during today's visit. patient reports the following: Allergies--reviewed Medications--full medication reconciliation completed Falls--None DME-Reviewed and added to chart BACKGROUND: Discharged/Referral from [facility] on 02/24/22 following treatment for Other specified disorders of peritoneum. Pertinent referral information or other diagnoses that may affect plan of care: Hemorrhage,Malignant neoplasm of rectum, Ileostomy status, urinary retention ASSESSMENT: SN greeted at door by caregiver. Upon entrance patient found in chair Patient appears in no acute distress. Patient lives at home with spouse. Home environment: clean and uncluttered. SOC booklet reviewed & completed with patient and consent obtained for Home Care services. Patient/CG concerns verbalized today: no concerns voiced Vitals (see flow sheet for details): stable SN findings today: Patient pleasent and cooperative with visit. HRR, LSCTA and BSx4. Patient reports that his pain is improving. Medication reconcilation completed, no severe interactions noted. Patient requires supervision for some ADLs. 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 Ostomy to RLQ noted, ostomy care completed, tolerated well, stomal separation noted at 3 oclock, no s/s of infection noted. Henriquez catheter in place, draining clear yellow urine, patient has follow up scheduled with urology next week for removal. Education on cahnging drainage bag from leg bag to standard bag given with verbalized understanding. See intervention summary for education details and skills performed. Plan of care and visit frequency established with patient and plan of care agreed upon. Patient demonstrated a need for further skilled SN services for chronic disease management & education, medication education, wound/skin care, safety, urinary catheter care and ostomy management & education. RECOMMENDATION: Visit Frequency: 1w1, 2w6 Need for additional services: Patient agreeable to PT referrals. Patient declined OT referrals. Additional concerns to be followed up on: NONE Next visit to focus on (be specific): Continue with SNV for disease management, CP assessment, ostomy care and [facility] of Past illness Narrative* Problem Noted Date Resolved Date Inadequate pain control 02/16/2022 02/19/20 Last Assessment & Plan: Assessment: poorly controlled abd pain since admission. Reports pain is so bad he wants to pursue comfort care as he does not want to be alive anymore. Has episodes of acute pain then becomes somnolent after opioid administration. 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 Prior to arrival he received 4L crystals, 1 unit whole blood and 2 unit pRBCs. Started on levo and vaso MTP initiated, Level 1 for heating 02/16: pt presented with distended abdomen, tenderness, guarding and hypotension. PLAN: - Transfuse as indicated - Labs with lyte repletion - hold subQ hep per primary - No therapeutic AC for 4 weeks Respiratory insufficiency 02/01/20222021 Last Assessment & Plan: Assessment: extubated 02/05 Mild b/l GOYO atelectasis, satting 98-99% on RA 02/06 Requiring 2L NC to maintain O2 sat 97-99%. PLAN: -- Wean o2 as able -- Encourage OOB with PT, IS -- IV Lasix 40mg Postoperative pain 01/28/2022 02/24/2022 Last Assessment & Plan: Assessment: Admitted 02/01 with worsening abdominal pain s/p robotic low anterior resection with colorectal anastomosis and diverting loop ileostomy on 01/27. More abdominal pain this morning, but abdomen soft, Hgb stable, not hypotensive, afebrile and leukocytosis resolving - no data points to suggest intraabd bleed or new infection Pain improving likely 2/2 to hematoma PLAN: -- prn tylenol and oxy for pain - abdominal binder - palliative consulted, appreciate recs documented as of this encounter (statuses as of 03/04/2022) [facility] of Past illness Narrative* Problem Noted Date Resolved Date Inadequate pain control 02/16/2022 02/19/20 Last Assessment & Plan: Assessment: poorly controlled abd pain since admission. Reports pain is so bad he wants to pursue comfort care as he does not want to be alive anymore. Has episodes of acute pain then becomes somnolent after opioid administration. 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 Prior to arrival he received 4L crystals, 1 unit whole blood and 2 unit pRBCs. Started on levo and vaso MTP initiated, Level 1 for heating 02/16: pt presented with distended abdomen, tenderness, guarding and hypotension. PLAN: - Transfuse as indicated - Labs with lyte repletion - hold subQ hep per primary - No therapeutic AC for 4 weeks Respiratory insufficiency 02/01/20222021 Last Assessment & Plan: Assessment: extubated 02/05 Mild b/l GOYO atelectasis, satting 98-99% on RA 02/06 Requiring 2L NC to maintain O2 sat 97-99%. PLAN: -- Wean o2 as able -- Encourage OOB with PT, IS -- IV Lasix 40mg Postoperative pain 01/28/2022 02/24/2022 Last Assessment & Plan: Assessment: Admitted 02/01 with worsening abdominal pain s/p robotic low anterior resection with colorectal anastomosis and diverting loop ileostomy on 01/27. More abdominal pain this morning, but abdomen soft, Hgb stable, not hypotensive, afebrile and leukocytosis resolving - no data points to suggest intraabd bleed or new infection Pain improving likely 2/2 to hematoma PLAN: -- prn tylenol and oxy for pain - abdominal binder - palliative consulted, appreciate recs documented as of this encounter (statuses as of 03/05/2022) [facility] of Past illness Narrative* Problem Noted Date Resolved Date Inadequate pain control 02/16/2022 02/19/20 Last Assessment & Plan: Assessment: poorly controlled abd pain since admission. Reports pain is so bad he wants to pursue comfort care as he does not want to be alive anymore. Has episodes of acute pain then becomes somnolent after opioid administration. 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 Prior to arrival he received 4L crystals, 1 unit whole blood and 2 unit pRBCs. Started on levo and vaso MTP initiated, Level 1 for heating 02/16: pt presented with distended abdomen, tenderness, guarding and hypotension. PLAN: - Transfuse as indicated - Labs with lyte repletion - hold subQ hep per primary - No therapeutic AC for 4 weeks Respiratory insufficiency 02/01/20222021 Last Assessment & Plan: Assessment: extubated 02/05 Mild b/l GOYO atelectasis, satting 98-99% on RA 02/06 Requiring 2L NC to maintain O2 sat 97-99%. PLAN: -- Wean o2 as able -- Encourage OOB with PT, IS -- IV Lasix 40mg Postoperative pain 01/28/2022 02/24/2022 Last Assessment & Plan: Assessment: Admitted 02/01 with worsening abdominal pain s/p robotic low anterior resection with colorectal anastomosis and diverting loop ileostomy on 01/27. More abdominal pain this morning, but abdomen soft, Hgb stable, not hypotensive, afebrile and leukocytosis resolving - no data points to suggest intraabd bleed or new infection Pain improving likely 2/2 to hematoma PLAN: -- prn tylenol and oxy for pain - abdominal binder - palliative consulted, appreciate recs documented as of this encounter (statuses as of 03/05/2022) [facility] of Past illness Narrative* Problem Noted Date Resolved Date Inadequate pain control 02/16/2022 02/19/20 Last Assessment & Plan: Assessment: poorly controlled abd pain since admission. Reports pain is so bad he wants to pursue comfort care as he does not want to be alive anymore. Has episodes of acute pain then becomes somnolent after opioid administration. 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 Prior to arrival he received 4L crystals, 1 unit whole blood and 2 unit pRBCs. Started on levo and vaso MTP initiated, Level 1 for heating 02/16: pt presented with distended abdomen, tenderness, guarding and hypotension. PLAN: - Transfuse as indicated - Labs with lyte repletion - hold subQ hep per primary - No therapeutic AC for 4 weeks Respiratory insufficiency 02/01/20222021 Last Assessment & Plan: Assessment: extubated 02/05 Mild b/l GOYO atelectasis, satting 98-99% on RA 02/06 Requiring 2L NC to maintain O2 sat 97-99%. PLAN: -- Wean o2 as able -- Encourage OOB with PT, IS -- IV Lasix 40mg Postoperative pain 01/28/2022 02/24/2022 Last Assessment & Plan: Assessment: Admitted 02/01 with worsening abdominal pain s/p robotic low anterior resection with colorectal anastomosis and diverting loop ileostomy on 01/27. More abdominal pain this morning, but abdomen soft, Hgb stable, not hypotensive, afebrile and leukocytosis resolving - no data points to suggest intraabd bleed or new infection Pain improving likely 2/2 to hematoma PLAN: -- prn tylenol and oxy for pain - abdominal binder - palliative consulted, appreciate recs documented as of this encounter (statuses as of 03/06/2022) [facility] of Past illness Narrative* Problem Noted Date Resolved Date Inadequate pain control 02/16/2022 02/19/20 Last Assessment & Plan: Assessment: poorly controlled abd pain since admission. Reports pain is so bad he wants to pursue comfort care as he does not want to be alive anymore. Has episodes of acute pain then becomes somnolent after opioid administration. 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 Prior to arrival he received 4L crystals, 1 unit whole blood and 2 unit pRBCs. Started on levo and vaso MTP initiated, Level 1 for heating 02/16: pt presented with distended abdomen, tenderness, guarding and hypotension. PLAN: - Transfuse as indicated - Labs with lyte repletion - hold subQ hep per primary - No therapeutic AC for 4 weeks Respiratory insufficiency 02/01/20222021 Last Assessment & Plan: Assessment: extubated 02/05 Mild b/l GOYO atelectasis, satting 98-99% on RA 02/06 Requiring 2L NC to maintain O2 sat 97-99%. PLAN: -- Wean o2 as able -- Encourage OOB with PT, IS -- IV Lasix 40mg Postoperative pain 01/28/2022 02/24/2022 Last Assessment & Plan: Assessment: Admitted 02/01 with worsening abdominal pain s/p robotic low anterior resection with colorectal anastomosis and diverting loop ileostomy on 01/27. More abdominal pain this morning, but abdomen soft, Hgb stable, not hypotensive, afebrile and leukocytosis resolving - no data points to suggest intraabd bleed or new infection Pain improving likely 2/2 to hematoma PLAN: -- prn tylenol and oxy for pain - abdominal binder - palliative consulted, appreciate recs documented as of this encounter (statuses as of 03/06/2022) [facility] of Past illness Narrative* Problem Noted Date Resolved Date Inadequate pain control 02/16/2022 02/19/20 Last Assessment & Plan: Assessment: poorly controlled abd pain since admission. Reports pain is so bad he wants to pursue comfort care as he does not want to be alive anymore. Has episodes of acute pain then becomes somnolent after opioid administration. 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 Prior to arrival he received 4L crystals, 1 unit whole blood and 2 unit pRBCs. Started on levo and vaso MTP initiated, Level 1 for heating 02/16: pt presented with distended abdomen, tenderness, guarding and hypotension. PLAN: - Transfuse as indicated - Labs with lyte repletion - hold subQ hep per primary - No therapeutic AC for 4 weeks Respiratory insufficiency 02/01/20222021 Last Assessment & Plan: Assessment: extubated 02/05 Mild b/l GOYO atelectasis, satting 98-99% on RA 02/06 Requiring 2L NC to maintain O2 sat 97-99%. PLAN: -- Wean o2 as able -- Encourage OOB with PT, IS -- IV Lasix 40mg Postoperative pain 01/28/2022 02/24/2022 Last Assessment & Plan: Assessment: Admitted 02/01 with worsening abdominal pain s/p robotic low anterior resection with colorectal anastomosis and diverting loop ileostomy on 01/27. More abdominal pain this morning, but abdomen soft, Hgb stable, not hypotensive, afebrile and leukocytosis resolving - no data points to suggest intraabd bleed or new infection Pain improving likely 2/2 to hematoma PLAN: -- prn tylenol and oxy for pain - abdominal binder - palliative consulted, appreciate recs documented as of this encounter (statuses as of 03/12/2022) [facility] Past illness Narrative* Problem Noted Date Resolved Date Inadequate pain control 02/16/2022 02/19/20 Last Assessment & Plan: Assessment: poorly controlled abd pain since admission. Reports pain is so bad he wants to pursue comfort care as he does not want to be alive anymore. Has episodes of acute pain then becomes somnolent after opioid administration. 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 Prior to arrival he received 4L crystals, 1 unit whole blood and 2 unit pRBCs. Started on levo and vaso MTP initiated, Level 1 for heating 02/16: pt presented with distended abdomen, tenderness, guarding and hypotension. PLAN: - Transfuse as indicated - Labs with lyte repletion - hold subQ hep per primary - No therapeutic AC for 4 weeks Respiratory insufficiency 02/01/20222021 Last Assessment & Plan: Assessment: extubated 02/05 Mild b/l GOYO atelectasis, satting 98-99% on RA 02/06 Requiring 2L NC to maintain O2 sat 97-99%. PLAN: -- Wean o2 as able -- Encourage OOB with PT, IS -- IV Lasix 40mg Postoperative pain 01/28/2022 02/24/2022 Last Assessment & Plan: Assessment: Admitted 02/01 with worsening abdominal pain s/p robotic low anterior resection with colorectal anastomosis and diverting loop ileostomy on 01/27. More abdominal pain this morning, but abdomen soft, Hgb stable, not hypotensive, afebrile and leukocytosis resolving - no data points to suggest intraabd bleed or new infection Pain improving likely 2/2 to hematoma PLAN: -- prn tylenol and oxy for pain - abdominal binder - palliative consulted, appreciate recs documented as of this encounter (statuses as of 03/14/2022) [facility] Past [facility] Narrative* Problem Noted Date Resolved Date Inadequate pain control 02/16/2022 02/19/20 Last Assessment & Plan: Assessment: poorly controlled abd pain since admission. Reports pain is so bad he wants to pursue comfort care as he does not want to be alive anymore. Has episodes of acute pain then becomes somnolent after opioid administration. 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 Prior to arrival he received 4L crystals, 1 unit whole blood and 2 unit pRBCs. Started on levo and vaso MTP initiated, Level 1 for heating 02/16: pt presented with distended abdomen, tenderness, guarding and hypotension. PLAN: - Transfuse as indicated - Labs with lyte repletion - hold subQ hep per primary - No therapeutic AC for 4 weeks Respiratory insufficiency 02/01/20222021 Last Assessment & Plan: Assessment: extubated 02/05 Mild b/l GOYO atelectasis, satting 98-99% on RA 02/06 Requiring 2L NC to maintain O2 sat 97-99%. PLAN: -- Wean o2 as able -- Encourage OOB with PT, IS -- IV Lasix 40mg Postoperative pain 01/28/2022 02/24/2022 Last Assessment & Plan: Assessment: Admitted 02/01 with worsening abdominal pain s/p robotic low anterior resection with colorectal anastomosis and diverting loop ileostomy on 01/27. More abdominal pain this morning, but abdomen soft, Hgb stable, not hypotensive, afebrile and leukocytosis resolving - no data points to suggest intraabd bleed or new infection Pain improving likely 2/2 to hematoma PLAN: -- prn tylenol and oxy for pain - abdominal binder - palliative consulted, appreciate recs documented as of this encounter (statuses as of 03/18/2022) [facility] of Past illness Narrative* Problem Noted Date Resolved Date Inadequate pain control 02/16/2022 02/19/20 Last Assessment & Plan: Assessment: poorly controlled abd pain since admission. Reports pain is so bad he wants to pursue comfort care as he does not want to be alive anymore. Has episodes of acute pain then becomes somnolent after opioid administration. 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 Prior to arrival he received 4L crystals, 1 unit whole blood and 2 unit pRBCs. Started on levo and vaso MTP initiated, Level 1 for heating 02/16: pt presented with distended abdomen, tenderness, guarding and hypotension. PLAN: - Transfuse as indicated - Labs with lyte repletion - hold subQ hep per primary - No therapeutic AC for 4 weeks Respiratory insufficiency 02/01/20222021 Last Assessment & Plan: Assessment: extubated 02/05 Mild b/l GOYO atelectasis, satting 98-99% on RA 02/06 Requiring 2L NC to maintain O2 sat 97-99%. PLAN: -- Wean o2 as able -- Encourage OOB with PT, IS -- IV Lasix 40mg Postoperative pain 01/28/2022 02/24/2022 Last Assessment & Plan: Assessment: Admitted 02/01 with worsening abdominal pain s/p robotic low anterior resection with colorectal anastomosis and diverting loop ileostomy on 01/27. More abdominal pain this morning, but abdomen soft, Hgb stable, not hypotensive, afebrile and leukocytosis resolving - no data points to suggest intraabd bleed or new infection Pain improving likely 2/2 to hematoma PLAN: -- prn tylenol and oxy for pain - abdominal binder - palliative consulted, appreciate recs documented as of this encounter (statuses as of 03/19/2022) [facility] History of Past illness Narrative* Problem Noted Date Resolved Date Inadequate pain control 02/16/2022 02/19/20 Last Assessment & Plan: Assessment: poorly controlled abd pain since admission. Reports pain is so bad he wants to pursue comfort care as he does not want to be alive anymore. Has episodes of acute pain then becomes somnolent after opioid administration. 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 Prior to arrival he received 4L crystals, 1 unit whole blood and 2 unit pRBCs. Started on levo and vaso MTP initiated, Level 1 for heating 02/16: pt presented with distended abdomen, tenderness, guarding and hypotension. PLAN: - Transfuse as indicated - Labs with lyte repletion - hold subQ hep per primary - No therapeutic AC for 4 weeks Respiratory insufficiency 02/01/20222021 Last Assessment & Plan: Assessment: extubated 02/05 Mild b/l GOYO atelectasis, satting 98-99% on RA 02/06 Requiring 2L NC to maintain O2 sat 97-99%. PLAN: -- Wean o2 as able -- Encourage OOB with PT, IS -- IV Lasix 40mg Postoperative pain 01/28/2022 02/24/2022 Last Assessment & Plan: Assessment: Admitted 02/01 with worsening abdominal pain s/p robotic low anterior resection with colorectal anastomosis and diverting loop ileostomy on 01/27. More abdominal pain this morning, but abdomen soft, Hgb stable, not hypotensive, afebrile and leukocytosis resolving - no data points to suggest intraabd bleed or new infection Pain improving likely 2/2 to hematoma PLAN: -- prn tylenol and oxy for pain - abdominal binder - palliative consulted, appreciate recs documented as of this encounter (statuses as of 03/19/2022) [facility] of Past illness Narrative* Problem Noted Date Resolved Date Inadequate pain control 02/16/2022 02/19/20 Last Assessment & Plan: Assessment: poorly controlled abd pain since admission. Reports pain is so bad he wants to pursue comfort care as he does not want to be alive anymore. Has episodes of acute pain then becomes somnolent after opioid administration. 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 Prior to arrival he received 4L crystals, 1 unit whole blood and 2 unit pRBCs. Started on levo and vaso MTP initiated, Level 1 for heating 02/16: pt presented with distended abdomen, tenderness, guarding and hypotension. PLAN: - Transfuse as indicated - Labs with lyte repletion - hold subQ hep per primary - No therapeutic AC for 4 weeks Respiratory insufficiency 02/01/20222021 Last Assessment & Plan: Assessment: extubated 02/05 Mild b/l GOYO atelectasis, satting 98-99% on RA 02/06 Requiring 2L NC to maintain O2 sat 97-99%. PLAN: -- Wean o2 as able -- Encourage OOB with PT, IS -- IV Lasix 40mg Postoperative pain 01/28/2022 02/24/2022 Last Assessment & Plan: Assessment: Admitted 02/01 with worsening abdominal pain s/p robotic low anterior resection with colorectal anastomosis and diverting loop ileostomy on 01/27. More abdominal pain this morning, but abdomen soft, Hgb stable, not hypotensive, afebrile and leukocytosis resolving - no data points to suggest intraabd bleed or new infection Pain improving likely 2/2 to hematoma PLAN: -- prn tylenol and oxy for pain - abdominal binder - palliative consulted, appreciate recs documented as of this encounter (statuses as of 03/23/2022) [facility] of Past illness Narrative* Problem Noted Date Resolved Date Inadequate pain control 02/16/2022 02/19/20 Last Assessment & Plan: Assessment: poorly controlled abd pain since admission. Reports pain is so bad he wants to pursue comfort care as he does not want to be alive anymore. Has episodes of acute pain then becomes somnolent after opioid administration. 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 Prior to arrival he received 4L crystals, 1 unit whole blood and 2 unit pRBCs. Started on levo and vaso MTP initiated, Level 1 for heating 02/16: pt presented with distended abdomen, tenderness, guarding and hypotension. PLAN: - Transfuse as indicated - Labs with lyte repletion - hold subQ hep per primary - No therapeutic AC for 4 weeks Respiratory insufficiency 02/01/20222021 Last Assessment & Plan: Assessment: extubated 02/05 Mild b/l GOYO atelectasis, satting 98-99% on RA 02/06 Requiring 2L NC to maintain O2 sat 97-99%. PLAN: -- Wean o2 as able -- Encourage OOB with PT, IS -- IV Lasix 40mg Postoperative pain 01/28/2022 02/24/2022 Last Assessment & Plan: Assessment: Admitted 02/01 with worsening abdominal pain s/p robotic low anterior resection with colorectal anastomosis and diverting loop ileostomy on 01/27. More abdominal pain this morning, but abdomen soft, Hgb stable, not hypotensive, afebrile and leukocytosis resolving - no data points to suggest intraabd bleed or new infection Pain improving likely 2/2 to hematoma PLAN: -- prn tylenol and oxy for pain - abdominal binder - palliative consulted, appreciate recs documented as of this encounter (statuses as of 03/23/2022) [facility]12-19-2022 History of Past illness Narrative* Problem Noted Date Resolved Date Inadequate pain control 02/16/2022 02/19/20 Last Assessment & Plan: Assessment: poorly controlled abd pain since admission. Reports pain is so bad he wants to pursue comfort care as he does not want to be alive anymore. Has episodes of acute pain then becomes somnolent after opioid administration. 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 Prior to arrival he received 4L crystals, 1 unit whole blood and 2 unit pRBCs. Started on levo and vaso MTP initiated, Level 1 for heating 02/16: pt presented with distended abdomen, tenderness, guarding and hypotension. PLAN: - Transfuse as indicated - Labs with lyte repletion - hold subQ hep per primary - No therapeutic AC for 4 weeks Respiratory insufficiency 02/01/20222021 Last Assessment & Plan: Assessment: extubated 02/05 Mild b/l GOYO atelectasis, satting 98-99% on RA 02/06 Requiring 2L NC to maintain O2 sat 97-99%. PLAN: -- Wean o2 as able -- Encourage OOB with PT, IS -- IV Lasix 40mg Postoperative pain 01/28/2022 02/24/2022 Last Assessment & Plan: Assessment: Admitted 02/01 with worsening abdominal pain s/p robotic low anterior resection with colorectal anastomosis and diverting loop ileostomy on 01/27. More abdominal pain this morning, but abdomen soft, Hgb stable, not hypotensive, afebrile and leukocytosis resolving - no data points to suggest intraabd bleed or new infection Pain improving likely 2/2 to hematoma PLAN: -- prn tylenol and oxy for pain - abdominal binder - palliative consulted, appreciate recs documented as of this encounter (statuses as of 03/23/2022) [facility]12-19-2022 History of Past illness Narrative* Problem Noted Date Resolved Date Inadequate pain control 02/16/2022 02/19/20 Last Assessment & Plan: Assessment: poorly controlled abd pain since admission. Reports pain is so bad he wants to pursue comfort care as he does not want to be alive anymore. Has episodes of acute pain then becomes somnolent after opioid administration. 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 Prior to arrival he received 4L crystals, 1 unit whole blood and 2 unit pRBCs. Started on levo and vaso MTP initiated, Level 1 for heating 02/16: pt presented with distended abdomen, tenderness, guarding and hypotension. PLAN: - Transfuse as indicated - Labs with lyte repletion - hold subQ hep per primary - No therapeutic AC for 4 weeks Respiratory insufficiency 02/01/20222021 Last Assessment & Plan: Assessment: extubated 02/05 Mild b/l GOYO atelectasis, satting 98-99% on RA 02/06 Requiring 2L NC to maintain O2 sat 97-99%. PLAN: -- Wean o2 as able -- Encourage OOB with PT, IS -- IV Lasix 40mg Postoperative pain 01/28/2022 02/24/2022 Last Assessment & Plan: Assessment: Admitted 02/01 with worsening abdominal pain s/p robotic low anterior resection with colorectal anastomosis and diverting loop ileostomy on 01/27. More abdominal pain this morning, but abdomen soft, Hgb stable, not hypotensive, afebrile and leukocytosis resolving - no data points to suggest intraabd bleed or new infection Pain improving likely 2/2 to hematoma PLAN: -- prn tylenol and oxy for pain - abdominal binder - palliative consulted, appreciate recs documented as of this encounter (statuses as of 03/25/2022) [facility]12-19-2022 History of Past illness Narrative* Problem Noted Date Resolved Date Inadequate pain control 02/16/2022 02/19/20 Last Assessment & Plan: Assessment: poorly controlled abd pain since admission. Reports pain is so bad he wants to pursue comfort care as he does not want to be alive anymore. Has episodes of acute pain then becomes somnolent after opioid administration. 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 Prior to arrival he received 4L crystals, 1 unit whole blood and 2 unit pRBCs. Started on levo and vaso MTP initiated, Level 1 for heating 02/16: pt presented with distended abdomen, tenderness, guarding and hypotension. PLAN: - Transfuse as indicated - Labs with lyte repletion - hold subQ hep per primary - No therapeutic AC for 4 weeks Respiratory insufficiency 02/01/20222021 Last Assessment & Plan: Assessment: extubated 02/05 Mild b/l GOYO atelectasis, satting 98-99% on RA 02/06 Requiring 2L NC to maintain O2 sat 97-99%. PLAN: -- Wean o2 as able -- Encourage OOB with PT, IS -- IV Lasix 40mg Postoperative pain 01/28/2022 02/24/2022 Last Assessment & Plan: Assessment: Admitted 02/01 with worsening abdominal pain s/p robotic low anterior resection with colorectal anastomosis and diverting loop ileostomy on 01/27. More abdominal pain this morning, but abdomen soft, Hgb stable, not hypotensive, afebrile and leukocytosis resolving - no data points to suggest intraabd bleed or new infection Pain improving likely 2/2 to hematoma PLAN: -- prn tylenol and oxy for pain - abdominal binder - palliative consulted, appreciate recs documented as of this encounter (statuses as of 03/26/2022) [facility]12-19-2022 History of Past illness Narrative* Problem Noted Date Resolved Date Inadequate pain control 02/16/2022 02/19/20 Last Assessment & Plan: Assessment: poorly controlled abd pain since admission. Reports pain is so bad he wants to pursue comfort care as he does not want to be alive anymore. Has episodes of acute pain then becomes somnolent after opioid administration. 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 Prior to arrival he received 4L crystals, 1 unit whole blood and 2 unit pRBCs. Started on levo and vaso MTP initiated, Level 1 for heating 02/16: pt presented with distended abdomen, tenderness, guarding and hypotension. PLAN: - Transfuse as indicated - Labs with lyte repletion - hold subQ hep per primary - No therapeutic AC for 4 weeks Respiratory insufficiency 02/01/20222021 Last Assessment & Plan: Assessment: extubated 02/05 Mild b/l GOYO atelectasis, satting 98-99% on RA 02/06 Requiring 2L NC to maintain O2 sat 97-99%. PLAN: -- Wean o2 as able -- Encourage OOB with PT, IS -- IV Lasix 40mg Postoperative pain 01/28/2022 02/24/2022 Last Assessment & Plan: Assessment: Admitted 02/01 with worsening abdominal pain s/p robotic low anterior resection with colorectal anastomosis and diverting loop ileostomy on 01/27. More abdominal pain this morning, but abdomen soft, Hgb stable, not hypotensive, afebrile and leukocytosis resolving - no data points to suggest intraabd bleed or new infection Pain improving likely 2/2 to hematoma PLAN: -- prn tylenol and oxy for pain - abdominal binder - palliative consulted, appreciate recs documented as of this encounter (statuses as of 03/26/2022) [facility]12-19-2022 History of Past illness Narrative* Problem Noted Date Resolved Date Inadequate pain control 02/16/2022 02/19/20 Last Assessment & Plan: Assessment: poorly controlled abd pain since admission. Reports pain is so bad he wants to pursue comfort care as he does not want to be alive anymore. Has episodes of acute pain then becomes somnolent after opioid administration. 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 Prior to arrival he received 4L crystals, 1 unit whole blood and 2 unit pRBCs. Started on levo and vaso MTP initiated, Level 1 for heating 02/16: pt presented with distended abdomen, tenderness, guarding and hypotension. PLAN: - Transfuse as indicated - Labs with lyte repletion - hold subQ hep per primary - No therapeutic AC for 4 weeks Respiratory insufficiency 02/01/20222021 Last Assessment & Plan: Assessment: extubated 02/05 Mild b/l GOYO atelectasis, satting 98-99% on RA 02/06 Requiring 2L NC to maintain O2 sat 97-99%. PLAN: -- Wean o2 as able -- Encourage OOB with PT, IS -- IV Lasix 40mg Postoperative pain 01/28/2022 02/24/2022 Last Assessment & Plan: Assessment: Admitted 02/01 with worsening abdominal pain s/p robotic low anterior resection with colorectal anastomosis and diverting loop ileostomy on 01/27. More abdominal pain this morning, but abdomen soft, Hgb stable, not hypotensive, afebrile and leukocytosis resolving - no data points to suggest intraabd bleed or new infection Pain improving likely 2/2 to hematoma PLAN: -- prn tylenol and oxy for pain - abdominal binder - palliative consulted, appreciate recs documented as of this encounter (statuses as of 03/27/2022) [facility]12-19-2022 History of Past illness Narrative* Problem Noted Date Resolved Date Inadequate pain control 02/16/2022 02/19/20 Last Assessment & Plan: Assessment: poorly controlled abd pain since admission. Reports pain is so bad he wants to pursue comfort care as he does not want to be alive anymore. Has episodes of acute pain then becomes somnolent after opioid administration. 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 Prior to arrival he received 4L crystals, 1 unit whole blood and 2 unit pRBCs. Started on levo and vaso MTP initiated, Level 1 for heating 02/16: pt presented with distended abdomen, tenderness, guarding and hypotension. PLAN: - Transfuse as indicated - Labs with lyte repletion - hold subQ hep per primary - No therapeutic AC for 4 weeks Respiratory insufficiency 02/01/20222021 Last Assessment & Plan: Assessment: extubated 02/05 Mild b/l GOYO atelectasis, satting 98-99% on RA 02/06 Requiring 2L NC to maintain O2 sat 97-99%. PLAN: -- Wean o2 as able -- Encourage OOB with PT, IS -- IV Lasix 40mg Postoperative pain 01/28/2022 02/24/2022 Last Assessment & Plan: Assessment: Admitted 02/01 with worsening abdominal pain s/p robotic low anterior resection with colorectal anastomosis and diverting loop ileostomy on 01/27. More abdominal pain this morning, but abdomen soft, Hgb stable, not hypotensive, afebrile and leukocytosis resolving - no data points to suggest intraabd bleed or new infection Pain improving likely 2/2 to hematoma PLAN: -- prn tylenol and oxy for pain - abdominal binder - palliative consulted, appreciate recs documented as of this encounter (statuses as of 03/31/2022) [facility]12-19-2022 History of Past illness Narrative* Problem Noted Date Resolved Date Inadequate pain control 02/16/2022 02/19/20 Last Assessment & Plan: Assessment: poorly controlled abd pain since admission. Reports pain is so bad he wants to pursue comfort care as he does not want to be alive anymore. Has episodes of acute pain then becomes somnolent after opioid administration. 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 Prior to arrival he received 4L crystals, 1 unit whole blood and 2 unit pRBCs. Started on levo and vaso MTP initiated, Level 1 for heating 02/16: pt presented with distended abdomen, tenderness, guarding and hypotension. PLAN: - Transfuse as indicated - Labs with lyte repletion - hold subQ hep per primary - No therapeutic AC for 4 weeks Respiratory insufficiency 02/01/20222021 Last Assessment & Plan: Assessment: extubated 02/05 Mild b/l GOYO atelectasis, satting 98-99% on RA 02/06 Requiring 2L NC to maintain O2 sat 97-99%. PLAN: -- Wean o2 as able -- Encourage OOB with PT, IS -- IV Lasix 40mg Postoperative pain 01/28/2022 02/24/2022 Last Assessment & Plan: Assessment: Admitted 02/01 with worsening abdominal pain s/p robotic low anterior resection with colorectal anastomosis and diverting loop ileostomy on 01/27. More abdominal pain this morning, but abdomen soft, Hgb stable, not hypotensive, afebrile and leukocytosis resolving - no data points to suggest intraabd bleed or new infection Pain improving likely 2/2 to hematoma PLAN: -- prn tylenol and oxy for pain - abdominal binder - palliative consulted, appreciate recs documented as of this encounter (statuses as of 04/01/2022) [facility]12-19-2022 History of Past illness Narrative* Problem Noted Date Resolved Date Inadequate pain control 02/16/2022 02/19/20 Last Assessment & Plan: Assessment: poorly controlled abd pain since admission. Reports pain is so bad he wants to pursue comfort care as he does not want to be alive anymore. Has episodes of acute pain then becomes somnolent after opioid administration. 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 Prior to arrival he received 4L crystals, 1 unit whole blood and 2 unit pRBCs. Started on levo and vaso MTP initiated, Level 1 for heating 02/16: pt presented with distended abdomen, tenderness, guarding and hypotension. PLAN: - Transfuse as indicated - Labs with lyte repletion - hold subQ hep per primary - No therapeutic AC for 4 weeks Respiratory insufficiency 02/01/20222021 Last Assessment & Plan: Assessment: extubated 02/05 Mild b/l GOYO atelectasis, satting 98-99% on RA 02/06 Requiring 2L NC to maintain O2 sat 97-99%. PLAN: -- Wean o2 as able -- Encourage OOB with PT, IS -- IV Lasix 40mg Postoperative pain 01/28/2022 02/24/2022 Last Assessment & Plan: Assessment: Admitted 02/01 with worsening abdominal pain s/p robotic low anterior resection with colorectal anastomosis and diverting loop ileostomy on 01/27. More abdominal pain this morning, but abdomen soft, Hgb stable, not hypotensive, afebrile and leukocytosis resolving - no data points to suggest intraabd bleed or new infection Pain improving likely 2/2 to hematoma PLAN: -- prn tylenol and oxy for pain - abdominal binder - palliative consulted, appreciate recs documented as of this encounter (statuses as of 04/03/2022) [facility]12-19-2022 History of Past illness Narrative* Problem Noted Date Resolved Date Inadequate pain control 02/16/2022 02/19/20 Last Assessment & Plan: Assessment: poorly controlled abd pain since admission. Reports pain is so bad he wants to pursue comfort care as he does not want to be alive anymore. Has episodes of acute pain then becomes somnolent after opioid administration. 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 Prior to arrival he received 4L crystals, 1 unit whole blood and 2 unit pRBCs. Started on levo and vaso MTP initiated, Level 1 for heating 02/16: pt presented with distended abdomen, tenderness, guarding and hypotension. PLAN: - Transfuse as indicated - Labs with lyte repletion - hold subQ hep per primary - No therapeutic AC for 4 weeks Respiratory insufficiency 02/01/20222021 Last Assessment & Plan: Assessment: extubated 02/05 Mild b/l GOYO atelectasis, satting 98-99% on RA 02/06 Requiring 2L NC to maintain O2 sat 97-99%. PLAN: -- Wean o2 as able -- Encourage OOB with PT, IS -- IV Lasix 40mg Postoperative pain 01/28/2022 02/24/2022 Last Assessment & Plan: Assessment: Admitted 02/01 with worsening abdominal pain s/p robotic low anterior resection with colorectal anastomosis and diverting loop ileostomy on 01/27. More abdominal pain this morning, but abdomen soft, Hgb stable, not hypotensive, afebrile and leukocytosis resolving - no data points to suggest intraabd bleed or new infection Pain improving likely 2/2 to hematoma PLAN: -- prn tylenol and oxy for pain - abdominal binder - palliative consulted, appreciate recs Obesity, Class I, BMI 30-34.9 01/26/2022 Essential hypertension 04/30/2021 Last Assessment & Plan: Assessment: takes metoprolol 25mg BID PLAN: - start metop 12.5 BID documented as of this encounter (statuses as of 04/06/2022) [facility]12[facility] History of Past illness Narrative* Problem Noted Date Resolved Date Inadequate pain control 02/16/2022 02/19/20 Last Assessment & Plan: Assessment: poorly controlled abd pain since admission. Reports pain is so bad he wants to pursue comfort care as he does not want to be alive anymore. Has episodes of acute pain then becomes somnolent after opioid administration. 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 Prior to arrival he received 4L crystals, 1 unit whole blood and 2 unit pRBCs. Started on levo and vaso MTP initiated, Level 1 for heating 02/16: pt presented with distended abdomen, tenderness, guarding and hypotension. PLAN: - Transfuse as indicated - Labs with lyte repletion - hold subQ hep per primary - No therapeutic AC for 4 weeks Respiratory insufficiency 02/01/20222021 Last Assessment & Plan: Assessment: extubated 02/05 Mild b/l GOYO atelectasis, satting 98-99% on RA 02/06 Requiring 2L NC to maintain O2 sat 97-99%. PLAN: -- Wean o2 as able -- Encourage OOB with PT, IS -- IV Lasix 40mg Postoperative pain 01/28/2022 02/24/2022 Last Assessment & Plan: Assessment: Admitted 02/01 with worsening abdominal pain s/p robotic low anterior resection with colorectal anastomosis and diverting loop ileostomy on 01/27. More abdominal pain this morning, but abdomen soft, Hgb stable, not hypotensive, afebrile and leukocytosis resolving - no data points to suggest intraabd bleed or new infection Pain improving likely 2/2 to hematoma PLAN: -- prn tylenol and oxy for pain - abdominal binder - palliative consulted, appreciate recs Obesity, Class I, BMI 30-34.9 01/26/2022 Essential hypertension 04/30/2021 Last Assessment & Plan: Assessment: takes metoprolol 25mg BID PLAN: - start metop 12.5 BID documented as of this encounter (statuses as of 04/07/2022) [facility] History of Past illness Narrative* Problem Noted Date Resolved Date Inadequate pain control 02/16/2022 02/19/20 Last Assessment & Plan: Assessment: poorly controlled abd pain since admission. Reports pain is so bad he wants to pursue comfort care as he does not want to be alive anymore. Has episodes of acute pain then becomes somnolent after opioid administration. 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 Prior to arrival he received 4L crystals, 1 unit whole blood and 2 unit pRBCs. Started on levo and vaso MTP initiated, Level 1 for heating 02/16: pt presented with distended abdomen, tenderness, guarding and hypotension. PLAN: - Transfuse as indicated - Labs with lyte repletion - hold subQ hep per primary - No therapeutic AC for 4 weeks Respiratory insufficiency 02/01/20222021 Last Assessment & Plan: Assessment: extubated 02/05 Mild b/l GOYO atelectasis, satting 98-99% on RA 02/06 Requiring 2L NC to maintain O2 sat 97-99%. PLAN: -- Wean o2 as able -- Encourage OOB with PT, IS -- IV Lasix 40mg Postoperative pain 01/28/2022 02/24/2022 Last Assessment & Plan: Assessment: Admitted 02/01 with worsening abdominal pain s/p robotic low anterior resection with colorectal anastomosis and diverting loop ileostomy on 01/27. More abdominal pain this morning, but abdomen soft, Hgb stable, not hypotensive, afebrile and leukocytosis resolving - no data points to suggest intraabd bleed or new infection Pain improving likely 2/2 to hematoma PLAN: -- prn tylenol and oxy for pain - abdominal binder - palliative consulted, appreciate recs Obesity, Class I, BMI 30-34.9 01/26/2022 Essential hypertension 04/30/2021 Last Assessment & Plan: Assessment: takes metoprolol 25mg BID PLAN: - start metop 12.5 BID documented as of this encounter (statuses as of 04/07/2022) [facility]12-19-2022 History of Past illness Narrative* Problem Noted Date Resolved Date Inadequate pain control 02/16/2022 02/19/20 Last Assessment & Plan: Assessment: poorly controlled abd pain since admission. Reports pain is so bad he wants to pursue comfort care as he does not want to be alive anymore. Has episodes of acute pain then becomes somnolent after opioid administration. 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 Prior to arrival he received 4L crystals, 1 unit whole blood and 2 unit pRBCs. Started on levo and vaso MTP initiated, Level 1 for heating 02/16: pt presented with distended abdomen, tenderness, guarding and hypotension. PLAN: - Transfuse as indicated - Labs with lyte repletion - hold subQ hep per primary - No therapeutic AC for 4 weeks Respiratory insufficiency 02/01/20222021 Last Assessment & Plan: Assessment: extubated 02/05 Mild b/l GOYO atelectasis, satting 98-99% on RA 02/06 Requiring 2L NC to maintain O2 sat 97-99%. PLAN: -- Wean o2 as able -- Encourage OOB with PT, IS -- IV Lasix 40mg Postoperative pain 01/28/2022 02/24/2022 Last Assessment & Plan: Assessment: Admitted 02/01 with worsening abdominal pain s/p robotic low anterior resection with colorectal anastomosis and diverting loop ileostomy on 01/27. More abdominal pain this morning, but abdomen soft, Hgb stable, not hypotensive, afebrile and leukocytosis resolving - no data points to suggest intraabd bleed or new infection Pain improving likely 2/2 to hematoma PLAN: -- prn tylenol and oxy for pain - abdominal binder - palliative consulted, appreciate recs Obesity, Class I, BMI 30-34.9 01/26/2022 Essential hypertension 04/30/2021 Last Assessment & Plan: Assessment: takes metoprolol 25mg BID PLAN: - start metop 12.5 BID documented as of this encounter (statuses as of 04/08/2022) [facility]12-19-2022 History of Past illness Narrative* Problem Noted Date Resolved Date Inadequate pain control 02/16/2022 02/19/20 Last Assessment & Plan: Assessment: poorly controlled abd pain since admission. Reports pain is so bad he wants to pursue comfort care as he does not want to be alive anymore. Has episodes of acute pain then becomes somnolent after opioid administration. 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 Prior to arrival he received 4L crystals, 1 unit whole blood and 2 unit pRBCs. Started on levo and vaso MTP initiated, Level 1 for heating 02/16: pt presented with distended abdomen, tenderness, guarding and hypotension. PLAN: - Transfuse as indicated - Labs with lyte repletion - hold subQ hep per primary - No therapeutic AC for 4 weeks Respiratory insufficiency 02/01/20222021 Last Assessment & Plan: Assessment: extubated 02/05 Mild b/l GOYO atelectasis, satting 98-99% on RA 02/06 Requiring 2L NC to maintain O2 sat 97-99%. PLAN: -- Wean o2 as able -- Encourage OOB with PT, IS -- IV Lasix 40mg Postoperative pain 01/28/2022 02/24/2022 Last Assessment & Plan: Assessment: Admitted 02/01 with worsening abdominal pain s/p robotic low anterior resection with colorectal anastomosis and diverting loop ileostomy on 01/27. More abdominal pain this morning, but abdomen soft, Hgb stable, not hypotensive, afebrile and leukocytosis resolving - no data points to suggest intraabd bleed or new infection Pain improving likely 2/2 to hematoma PLAN: -- prn tylenol and oxy for pain - abdominal binder - palliative consulted, appreciate recs Obesity, Class I, BMI 30-34.9 01/26/2022 Essential hypertension 04/30/2021 3 Last Assessment & Plan: Assessment: takes metoprolol 25mg BID PLAN: - start metop 12.5 BID documented as of this encounter (statuses as of 04/08/2022) [facility]12-19-2022 History of Past illness Narrative* Problem Noted Date Resolved Date Inadequate pain control 02/16/2022 02/19/20 Last Assessment & Plan: Assessment: poorly controlled abd pain since admission. Reports pain is so bad he wants to pursue comfort care as he does not want to be alive anymore. Has episodes of acute pain then becomes somnolent after opioid administration. 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 Prior to arrival he received 4L crystals, 1 unit whole blood and 2 unit pRBCs. Started on levo and vaso MTP initiated, Level 1 for heating 02/16: pt presented with distended abdomen, tenderness, guarding and hypotension. PLAN: - Transfuse as indicated - Labs with lyte repletion - hold subQ hep per primary - No therapeutic AC for 4 weeks Respiratory insufficiency 02/01/20222021 Last Assessment & Plan: Assessment: extubated 02/05 Mild b/l GOYO atelectasis, satting 98-99% on RA 02/06 Requiring 2L NC to maintain O2 sat 97-99%. PLAN: -- Wean o2 as able -- Encourage OOB with PT, IS -- IV Lasix 40mg Postoperative pain 01/28/2022 02/24/2022 Last Assessment & Plan: Assessment: Admitted 02/01 with worsening abdominal pain s/p robotic low anterior resection with colorectal anastomosis and diverting loop ileostomy on 01/27. More abdominal pain this morning, but abdomen soft, Hgb stable, not hypotensive, afebrile and leukocytosis resolving - no data points to suggest intraabd bleed or new infection Pain improving likely 2/2 to hematoma PLAN: -- prn tylenol and oxy for pain - abdominal binder - palliative consulted, appreciate recs Obesity, Class I, BMI 30-34.9 01/26/2022 Essential hypertension 04/30/2021 Last Assessment & Plan: Assessment: takes metoprolol 25mg BID PLAN: - start metop 12.5 BID documented as of this encounter (statuses as of 04/09/2022) [facility]12-19-2022 History of Past illness Narrative* Problem Noted Date Resolved Date Inadequate pain control 02/16/2022 02/19/20 Last Assessment & Plan: Assessment: poorly controlled abd pain since admission. Reports pain is so bad he wants to pursue comfort care as he does not want to be alive anymore. Has episodes of acute pain then becomes somnolent after opioid administration. 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 Prior to arrival he received 4L crystals, 1 unit whole blood and 2 unit pRBCs. Started on levo and vaso MTP initiated, Level 1 for heating 02/16: pt presented with distended abdomen, tenderness, guarding and hypotension. PLAN: - Transfuse as indicated - Labs with lyte repletion - hold subQ hep per primary - No therapeutic AC for 4 weeks Respiratory insufficiency 02/01/20222021 Last Assessment & Plan: Assessment: extubated 02/05 Mild b/l GOYO atelectasis, satting 98-99% on RA 02/06 Requiring 2L NC to maintain O2 sat 97-99%. PLAN: -- Wean o2 as able -- Encourage OOB with PT, IS -- IV Lasix 40mg Postoperative pain 01/28/2022 02/24/2022 Last Assessment & Plan: Assessment: Admitted 02/01 with worsening abdominal pain s/p robotic low anterior resection with colorectal anastomosis and diverting loop ileostomy on 01/27. More abdominal pain this morning, but abdomen soft, Hgb stable, not hypotensive, afebrile and leukocytosis resolving - no data points to suggest intraabd bleed or new infection Pain improving likely 2/2 to hematoma PLAN: -- prn tylenol and oxy for pain - abdominal binder - palliative consulted, appreciate recs Obesity, Class I, BMI 30-34.9 01/26/2022 Essential hypertension 04/30/2021 Last Assessment & Plan: Assessment: takes metoprolol 25mg BID PLAN: - start metop 12.5 BID documented as of this encounter (statuses as of 04/13/2022) [facility]12-19-2022 History of Past illness Narrative* Problem Noted Date Resolved Date Inadequate pain control 02/16/2022 02/19/20 Last Assessment & Plan: Assessment: poorly controlled abd pain since admission. Reports pain is so bad he wants to pursue comfort care as he does not want to be alive anymore. Has episodes of acute pain then becomes somnolent after opioid administration. 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 Prior to arrival he received 4L crystals, 1 unit whole blood and 2 unit pRBCs. Started on levo and vaso MTP initiated, Level 1 for heating 02/16: pt presented with distended abdomen, tenderness, guarding and hypotension. PLAN: - Transfuse as indicated - Labs with lyte repletion - hold subQ hep per primary - No therapeutic AC for 4 weeks Respiratory insufficiency 02/01/20222021 Last Assessment & Plan: Assessment: extubated 02/05 Mild b/l GOYO atelectasis, satting 98-99% on RA 02/06 Requiring 2L NC to maintain O2 sat 97-99%. PLAN: -- Wean o2 as able -- Encourage OOB with PT, IS -- IV Lasix 40mg Postoperative pain 01/28/2022 02/24/2022 Last Assessment & Plan: Assessment: Admitted 02/01 with worsening abdominal pain s/p robotic low anterior resection with colorectal anastomosis and diverting loop ileostomy on 01/27. More abdominal pain this morning, but abdomen soft, Hgb stable, not hypotensive, afebrile and leukocytosis resolving - no data points to suggest intraabd bleed or new infection Pain improving likely 2/2 to hematoma PLAN: -- prn tylenol and oxy for pain - abdominal binder - palliative consulted, appreciate recs Obesity, Class I, BMI 30-34.9 01/26/2022 Essential hypertension 04/30/2021 Last Assessment & Plan: Assessment: takes metoprolol 25mg BID PLAN: - start metop 12.5 BID documented as of this encounter (statuses as of 04/14/2022) [facility]12-19-2022 History of Past illness Narrative* Problem Noted Date Resolved Date Inadequate pain control 02/16/2022 02/19/20 Last Assessment & Plan: Assessment: poorly controlled abd pain since admission. Reports pain is so bad he wants to pursue comfort care as he does not want to be alive anymore. Has episodes of acute pain then becomes somnolent after opioid administration. 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 Prior to arrival he received 4L crystals, 1 unit whole blood and 2 unit pRBCs. Started on levo and vaso MTP initiated, Level 1 for heating 02/16: pt presented with distended abdomen, tenderness, guarding and hypotension. PLAN: - Transfuse as indicated - Labs with lyte repletion - hold subQ hep per primary - No therapeutic AC for 4 weeks Respiratory insufficiency 02/01/20222021 Last Assessment & Plan: Assessment: extubated 02/05 Mild b/l GOYO atelectasis, satting 98-99% on RA 02/06 Requiring 2L NC to maintain O2 sat 97-99%. PLAN: -- Wean o2 as able -- Encourage OOB with PT, IS -- IV Lasix 40mg Postoperative pain 01/28/2022 02/24/2022 Last Assessment & Plan: Assessment: Admitted 02/01 with worsening abdominal pain s/p robotic low anterior resection with colorectal anastomosis and diverting loop ileostomy on 01/27. More abdominal pain this morning, but abdomen soft, Hgb stable, not hypotensive, afebrile and leukocytosis resolving - no data points to suggest intraabd bleed or new infection Pain improving likely 2/2 to hematoma PLAN: -- prn tylenol and oxy for pain - abdominal binder - palliative consulted, appreciate recs Obesity, Class I, BMI 30-34.9 01/26/2022 Essential hypertension 04/30/2021 Last Assessment & Plan: Assessment: takes metoprolol 25mg BID PLAN: - start metop 12.5 BID documented as of this encounter (statuses as of 04/15/2022) [facility]12[facility] History of Past illness Narrative* Problem Noted Date Resolved Date Inadequate pain control 02/16/2022 02/19/20 22 Last Assessment & Plan: Assessment: poorly controlled abd pain since admission. Reports pain is so bad he wants to pursue comfort care as he does not want to be alive anymore. Has episodes of acute pain then becomes somnolent after opioid administration. 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 Prior to arrival he received 4L crystals, 1 unit whole blood and 2 unit pRBCs. Started on levo and vaso MTP initiated, Level 1 for heating 02/16: pt presented with distended abdomen, tenderness, guarding and hypotension. PLAN: - Transfuse as indicated - Labs with lyte repletion - hold subQ hep per primary - No therapeutic AC for 4 weeks Respiratory insufficiency 02/01/20222021 Last Assessment & Plan: Assessment: extubated 02/05 Mild b/l GOYO atelectasis, satting 98-99% on RA 02/06 Requiring 2L NC to maintain O2 sat 97-99%. PLAN: -- Wean o2 as able -- Encourage OOB with PT, IS -- IV Lasix 40mg Postoperative pain 01/28/2022 02/24/2022 Last Assessment & Plan: Assessment: Admitted 02/01 with worsening abdominal pain s/p robotic low anterior resection with colorectal anastomosis and diverting loop ileostomy on 01/27. More abdominal pain this morning, but abdomen soft, Hgb stable, not hypotensive, afebrile and leukocytosis resolving - no data points to suggest intraabd bleed or new infection Pain improving likely 2/2 to hematoma PLAN: -- prn tylenol and oxy for pain - abdominal binder - palliative consulted, appreciate recs Obesity, Class I, BMI 30-34.9 01/26/2022 Essential hypertension 04/30/2021 Last Assessment & Plan: Assessment: takes metoprolol 25mg BID PLAN: - start metop 12.5 BID documented as of this encounter (statuses as of 04/17/2022) [facility]12[facility] History of Past illness Narrative* Problem Noted Date Resolved Date Inadequate pain control 02/16/2022 02/19/20 Last Assessment & Plan: Assessment: poorly controlled abd pain since admission. Reports pain is so bad he wants to pursue comfort care as he does not want to be alive anymore. Has episodes of acute pain then becomes somnolent after opioid administration. 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 Prior to arrival he received 4L crystals, 1 unit whole blood and 2 unit pRBCs. Started on levo and vaso MTP initiated, Level 1 for heating 02/16: pt presented with distended abdomen, tenderness, guarding and hypotension. PLAN: - Transfuse as indicated - Labs with lyte repletion - hold subQ hep per primary - No therapeutic AC for 4 weeks Respiratory insufficiency 02/01/20222021 Last Assessment & Plan: Assessment: extubated 02/05 Mild b/l GOYO atelectasis, satting 98-99% on RA 02/06 Requiring 2L NC to maintain O2 sat 97-99%. PLAN: -- Wean o2 as able -- Encourage OOB with PT, IS -- IV Lasix 40mg Postoperative pain 01/28/2022 02/24/2022 Last Assessment & Plan: Assessment: Admitted 02/01 with worsening abdominal pain s/p robotic low anterior resection with colorectal anastomosis and diverting loop ileostomy on 01/27. More abdominal pain this morning, but abdomen soft, Hgb stable, not hypotensive, afebrile and leukocytosis resolving - no data points to suggest intraabd bleed or new infection Pain improving likely 2/2 to hematoma PLAN: -- prn tylenol and oxy for pain - abdominal binder - palliative consulted, appreciate recs Obesity, Class I, BMI 30-34.9 01/26/2022 Essential hypertension 04/30/2021 Last Assessment & Plan: Assessment: takes metoprolol 25mg BID PLAN: - start metop 12.5 BID documented as of this encounter (statuses as of 04/21/2022) [facility] History of Past illness Narrative* Problem Noted Date Resolved Date Inadequate pain control 02/16/2022 02/19/20 Last Assessment & Plan: Assessment: poorly controlled abd pain since admission. Reports pain is so bad he wants to pursue comfort care as he does not want to be alive anymore. Has episodes of acute pain then becomes somnolent after opioid administration. 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 Prior to arrival he received 4L crystals, 1 unit whole blood and 2 unit pRBCs. Started on levo and vaso MTP initiated, Level 1 for heating 02/16: pt presented with distended abdomen, tenderness, guarding and hypotension. PLAN: - Transfuse as indicated - Labs with lyte repletion - hold subQ hep per primary - No therapeutic AC for 4 weeks Respiratory insufficiency 02/01/20222021 Last Assessment & Plan: Assessment: extubated 02/05 Mild b/l GOYO atelectasis, satting 98-99% on RA 02/06 Requiring 2L NC to maintain O2 sat 97-99%. PLAN: -- Wean o2 as able -- Encourage OOB with PT, IS -- IV Lasix 40mg Postoperative pain 01/28/2022 02/24/2022 Last Assessment & Plan: Assessment: Admitted 02/01 with worsening abdominal pain s/p robotic low anterior resection with colorectal anastomosis and diverting loop ileostomy on 01/27. More abdominal pain this morning, but abdomen soft, Hgb stable, not hypotensive, afebrile and leukocytosis resolving - no data points to suggest intraabd bleed or new infection Pain improving likely 2/2 to hematoma PLAN: -- prn tylenol and oxy for pain - abdominal binder - palliative consulted, appreciate recs Obesity, Class I, BMI 30-34.9 01/26/2022 Essential hypertension 04/30/2021 Last Assessment & Plan: Assessment: takes metoprolol 25mg BID PLAN: - start metop 12.5 BID documented as of this encounter (statuses as of 04/22/2022) [facility] History of Past illness Narrative* Problem Noted Date Resolved Date Inadequate pain control 02/16/2022 02/19/20 Last Assessment & Plan: Assessment: poorly controlled abd pain since admission. Reports pain is so bad he wants to pursue comfort care as he does not want to be alive anymore. Has episodes of acute pain then becomes somnolent after opioid administration. 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 Prior to arrival he received 4L crystals, 1 unit whole blood and 2 unit pRBCs. Started on levo and vaso MTP initiated, Level 1 for heating 02/16: pt presented with distended abdomen, tenderness, guarding and hypotension. PLAN: - Transfuse as indicated - Labs with lyte repletion - hold subQ hep per primary - No therapeutic AC for 4 weeks Respiratory insufficiency 02/01/20222021 Last Assessment & Plan: Assessment: extubated 02/05 Mild b/l GOYO atelectasis, satting 98-99% on RA 02/06 Requiring 2L NC to maintain O2 sat 97-99%. PLAN: -- Wean o2 as able -- Encourage OOB with PT, IS -- IV Lasix 40mg Postoperative pain 01/28/2022 02/24/2022 Last Assessment & Plan: Assessment: Admitted 02/01 with worsening abdominal pain s/p robotic low anterior resection with colorectal anastomosis and diverting loop ileostomy on 01/27. More abdominal pain this morning, but abdomen soft, Hgb stable, not hypotensive, afebrile and leukocytosis resolving - no data points to suggest intraabd bleed or new infection Pain improving likely 2/2 to hematoma PLAN: -- prn tylenol and oxy for pain - abdominal binder - palliative consulted, appreciate recs Obesity, Class I, BMI 30-34.9 01/26/2022 Essential hypertension 04/30/2021 Last Assessment & Plan: Assessment: takes metoprolol 25mg BID PLAN: - start metop 12.5 BID documented as of this encounter (statuses as of 04/24/2022) [facility] History of Past illness Narrative* Problem Noted Date Resolved Date Inadequate pain control 02/16/2022 02/19/20 Last Assessment & Plan: Assessment: poorly controlled abd pain since admission. Reports pain is so bad he wants to pursue comfort care as he does not want to be alive anymore. Has episodes of acute pain then becomes somnolent after opioid administration. 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 Prior to arrival he received 4L crystals, 1 unit whole blood and 2 unit pRBCs. Started on levo and vaso MTP initiated, Level 1 for heating 02/16: pt presented with distended abdomen, tenderness, guarding and hypotension. PLAN: - Transfuse as indicated - Labs with lyte repletion - hold subQ hep per primary - No therapeutic AC for 4 weeks Respiratory insufficiency 02/01/20222021 Last Assessment & Plan: Assessment: extubated 02/05 Mild b/l GOYO atelectasis, satting 98-99% on RA 02/06 Requiring 2L NC to maintain O2 sat 97-99%. PLAN: -- Wean o2 as able -- Encourage OOB with PT, IS -- IV Lasix 40mg Postoperative pain 01/28/2022 02/24/2022 Last Assessment & Plan: Assessment: Admitted 02/01 with worsening abdominal pain s/p robotic low anterior resection with colorectal anastomosis and diverting loop ileostomy on 01/27. More abdominal pain this morning, but abdomen soft, Hgb stable, not hypotensive, afebrile and leukocytosis resolving - no data points to suggest intraabd bleed or new infection Pain improving likely 2/2 to hematoma PLAN: -- prn tylenol and oxy for pain - abdominal binder - palliative consulted, appreciate recs Obesity, Class I, BMI 30-34.9 01/26/2022 Essential hypertension 04/30/2021 Last Assessment & Plan: Assessment: takes metoprolol 25mg BID PLAN: - start metop 12.5 BID documented as of this encounter (statuses as of 04/24/2022) [facility]12-19-2022 History of Past illness Narrative* Problem Noted Date Resolved Date Inadequate pain control 02/16/2022 02/19/20 Last Assessment & Plan: Assessment: poorly controlled abd pain since admission. Reports pain is so bad he wants to pursue comfort care as he does not want to be alive anymore. Has episodes of acute pain then becomes somnolent after opioid administration. 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 Prior to arrival he received 4L crystals, 1 unit whole blood and 2 unit pRBCs. Started on levo and vaso MTP initiated, Level 1 for heating 02/16: pt presented with distended abdomen, tenderness, guarding and hypotension. PLAN: - Transfuse as indicated - Labs with lyte repletion - hold subQ hep per primary - No therapeutic AC for 4 weeks Respiratory insufficiency 02/01/20222021 Last Assessment & Plan: Assessment: extubated 02/05 Mild b/l GOYO atelectasis, satting 98-99% on RA 02/06 Requiring 2L NC to maintain O2 sat 97-99%. PLAN: -- Wean o2 as able -- Encourage OOB with PT, IS -- IV Lasix 40mg Postoperative pain 01/28/2022 02/24/2022 Last Assessment & Plan: Assessment: Admitted 02/01 with worsening abdominal pain s/p robotic low anterior resection with colorectal anastomosis and diverting loop ileostomy on 01/27. More abdominal pain this morning, but abdomen soft, Hgb stable, not hypotensive, afebrile and leukocytosis resolving - no data points to suggest intraabd bleed or new infection Pain improving likely 2/2 to hematoma PLAN: -- prn tylenol and oxy for pain - abdominal binder - palliative consulted, appreciate recs Obesity, Class I, BMI 30-34.9 01/26/2022 Essential hypertension 04/30/2021 Last Assessment & Plan: Assessment: takes metoprolol 25mg BID PLAN: - start metop 12.5 BID documented as of this encounter (statuses as of 04/30/2022) [facility]12-19-2022 History of Past illness Narrative* Problem Noted Date Resolved Date Inadequate pain control 02/16/2022 02/19/20 Last Assessment & Plan: Assessment: poorly controlled abd pain since admission. Reports pain is so bad he wants to pursue comfort care as he does not want to be alive anymore. Has episodes of acute pain then becomes somnolent after opioid administration. 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 Prior to arrival he received 4L crystals, 1 unit whole blood and 2 unit pRBCs. Started on levo and vaso MTP initiated, Level 1 for heating 02/16: pt presented with distended abdomen, tenderness, guarding and hypotension. PLAN: - Transfuse as indicated - Labs with lyte repletion - hold subQ hep per primary - No therapeutic AC for 4 weeks Respiratory insufficiency 02/01/20222021 Last Assessment & Plan: Assessment: extubated 02/05 Mild b/l GOYO atelectasis, satting 98-99% on RA 02/06 Requiring 2L NC to maintain O2 sat 97-99%. PLAN: -- Wean o2 as able -- Encourage OOB with PT, IS -- IV Lasix 40mg Postoperative pain 01/28/2022 02/24/2022 Last Assessment & Plan: Assessment: Admitted 02/01 with worsening abdominal pain s/p robotic low anterior resection with colorectal anastomosis and diverting loop ileostomy on 01/27. More abdominal pain this morning, but abdomen soft, Hgb stable, not hypotensive, afebrile and leukocytosis resolving - no data points to suggest intraabd bleed or new infection Pain improving likely 2/2 to hematoma PLAN: -- prn tylenol and oxy for pain - abdominal binder - palliative consulted, appreciate recs Obesity, Class I, BMI 30-34.9 01/26/2022 Essential hypertension 04/30/2021 Last Assessment & Plan: Assessment: takes metoprolol 25mg BID PLAN: - start metop 12.5 BID documented as of this encounter (statuses as of 05/20/2022) [facility]12-19-2022 History of Past illness Narrative* Problem Noted Date Resolved Date Inadequate pain control 02/16/2022 02/19/20 Last Assessment & Plan: Assessment: poorly controlled abd pain since admission. Reports pain is so bad he wants to pursue comfort care as he does not want to be alive anymore. Has episodes of acute pain then becomes somnolent after opioid administration. 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 Prior to arrival he received 4L crystals, 1 unit whole blood and 2 unit pRBCs. Started on levo and vaso MTP initiated, Level 1 for heating 02/16: pt presented with distended abdomen, tenderness, guarding and hypotension. PLAN: - Transfuse as indicated - Labs with lyte repletion - hold subQ hep per primary - No therapeutic AC for 4 weeks Respiratory insufficiency 02/01/20222021 Last Assessment & Plan: Assessment: extubated 02/05 Mild b/l GOYO atelectasis, satting 98-99% on RA 02/06 Requiring 2L NC to maintain O2 sat 97-99%. PLAN: -- Wean o2 as able -- Encourage OOB with PT, IS -- IV Lasix 40mg Postoperative pain 01/28/2022 02/24/2022 Last Assessment & Plan: Assessment: Admitted 02/01 with worsening abdominal pain s/p robotic low anterior resection with colorectal anastomosis and diverting loop ileostomy on 01/27. More abdominal pain this morning, but abdomen soft, Hgb stable, not hypotensive, afebrile and leukocytosis resolving - no data points to suggest intraabd bleed or new infection Pain improving likely 2/2 to hematoma PLAN: -- prn tylenol and oxy for pain - abdominal binder - palliative consulted, appreciate recs Obesity, Class I, BMI 30-34.9 01/26/2022 Essential hypertension 04/30/2021 Last Assessment & Plan: Assessment: takes metoprolol 25mg BID PLAN: - start metop 12.5 BID documented as of this encounter (statuses as of 05/20/2022) [facility]12-[facility]-2022 History of Past illness Narrative* Problem Noted Date Resolved Date Inadequate pain control 02/16/2022 02/19/20 Last Assessment & Plan: Assessment: poorly controlled abd pain since admission. Reports pain is so bad he wants to pursue comfort care as he does not want to be alive anymore. Has episodes of acute pain then becomes somnolent after opioid administration. 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 Prior to arrival he received 4L crystals, 1 unit whole blood and 2 unit pRBCs. Started on levo and vaso MTP initiated, Level 1 for heating 02/16: pt presented with distended abdomen, tenderness, guarding and hypotension. PLAN: - Transfuse as indicated - Labs with lyte repletion - hold subQ hep per primary - No therapeutic AC for 4 weeks Respiratory insufficiency 02/01/20222021 Last Assessment & Plan: Assessment: extubated 02/05 Mild b/l GOYO atelectasis, satting 98-99% on RA 02/06 Requiring 2L NC to maintain O2 sat 97-99%. PLAN: -- Wean o2 as able -- Encourage OOB with PT, IS -- IV Lasix 40mg Postoperative pain 01/28/2022 02/24/2022 Last Assessment & Plan: Assessment: Admitted 02/01 with worsening abdominal pain s/p robotic low anterior resection with colorectal anastomosis and diverting loop ileostomy on 01/27. More abdominal pain this morning, but abdomen soft, Hgb stable, not hypotensive, afebrile and leukocytosis resolving - no data points to suggest intraabd bleed or new infection Pain improving likely 2/2 to hematoma PLAN: -- prn tylenol and oxy for pain - abdominal binder - palliative consulted, appreciate recs Obesity, Class I, BMI 30-34.9 01/26/2022 Essential hypertension 04/30/2021 Last Assessment & Plan: Assessment: takes metoprolol 25mg BID PLAN: - start metop 12.5 BID documented as of this encounter (statuses as of 05/20/2022) [facility]12-19-2022 History of Past illness Narrative* Problem Noted Date Resolved Date Inadequate pain control 02/16/2022 02/19/20 Last Assessment & Plan: Assessment: poorly controlled abd pain since admission. Reports pain is so bad he wants to pursue comfort care as he does not want to be alive anymore. Has episodes of acute pain then becomes somnolent after opioid administration. 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 Prior to arrival he received 4L crystals, 1 unit whole blood and 2 unit pRBCs. Started on levo and vaso MTP initiated, Level 1 for heating 02/16: pt presented with distended abdomen, tenderness, guarding and hypotension. PLAN: - Transfuse as indicated - Labs with lyte repletion - hold subQ hep per primary - No therapeutic AC for 4 weeks Respiratory insufficiency 02/01/20222021 Last Assessment & Plan: Assessment: extubated 02/05 Mild b/l GOYO atelectasis, satting 98-99% on RA 02/06 Requiring 2L NC to maintain O2 sat 97-99%. PLAN: -- Wean o2 as able -- Encourage OOB with PT, IS -- IV Lasix 40mg Postoperative pain 01/28/2022 02/24/2022 Last Assessment & Plan: Assessment: Admitted 02/01 with worsening abdominal pain s/p robotic low anterior resection with colorectal anastomosis and diverting loop ileostomy on 01/27. More abdominal pain this morning, but abdomen soft, Hgb stable, not hypotensive, afebrile and leukocytosis resolving - no data points to suggest intraabd bleed or new infection Pain improving likely 2/2 to hematoma PLAN: -- prn tylenol and oxy for pain - abdominal binder - palliative consulted, appreciate recs Obesity, Class I, BMI 30-34.9 01/26/2022 Essential hypertension 04/30/2021 Last Assessment & Plan: Assessment: takes metoprolol 25mg BID PLAN: - start metop 12.5 BID documented as of this encounter (statuses as of 05/21/2022) [facility]12-19-2022 History of Past illness Narrative* Problem Noted Date Resolved Date Inadequate pain control 02/16/2022 02/19/20 Last Assessment & Plan: Assessment: poorly controlled abd pain since admission. Reports pain is so bad he wants to pursue comfort care as he does not want to be alive anymore. Has episodes of acute pain then becomes somnolent after opioid administration. 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 Prior to arrival he received 4L crystals, 1 unit whole blood and 2 unit pRBCs. Started on levo and vaso MTP initiated, Level 1 for heating 02/16: pt presented with distended abdomen, tenderness, guarding and hypotension. PLAN: - Transfuse as indicated - Labs with lyte repletion - hold subQ hep per primary - No therapeutic AC for 4 weeks Respiratory insufficiency 02/01/20222021 Last Assessment & Plan: Assessment: extubated 02/05 Mild b/l GOYO atelectasis, satting 98-99% on RA 02/06 Requiring 2L NC to maintain O2 sat 97-99%. PLAN: -- Wean o2 as able -- Encourage OOB with PT, IS -- IV Lasix 40mg Postoperative pain 01/28/2022 02/24/2022 Last Assessment & Plan: Assessment: Admitted 02/01 with worsening abdominal pain s/p robotic low anterior resection with colorectal anastomosis and diverting loop ileostomy on 01/27. More abdominal pain this morning, but abdomen soft, Hgb stable, not hypotensive, afebrile and leukocytosis resolving - no data points to suggest intraabd bleed or new infection Pain improving likely 2/2 to hematoma PLAN: -- prn tylenol and oxy for pain - abdominal binder - palliative consulted, appreciate recs Obesity, Class I, BMI 30-34.9 01/26/2022 Essential hypertension 04/30/2021 Last Assessment & Plan: Assessment: takes metoprolol 25mg BID PLAN: - start metop 12.5 BID documented as of this encounter (statuses as of 05/21/2022) [facility]12[facility] History of Past illness Narrative* Problem Noted Date Resolved Date Inadequate pain control 02/16/2022 02/19/20 Last Assessment & Plan: Assessment: poorly controlled abd pain since admission. Reports pain is so bad he wants to pursue comfort care as he does not want to be alive anymore. Has episodes of acute pain then becomes somnolent after opioid administration. 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 Prior to arrival he received 4L crystals, 1 unit whole blood and 2 unit pRBCs. Started on levo and vaso MTP initiated, Level 1 for heating 02/16: pt presented with distended abdomen, tenderness, guarding and hypotension. PLAN: - Transfuse as indicated - Labs with lyte repletion - hold subQ hep per primary - No therapeutic AC for 4 weeks Respiratory insufficiency 02/01/20222021 Last Assessment & Plan: Assessment: extubated 02/05 Mild b/l GOYO atelectasis, satting 98-99% on RA 02/06 Requiring 2L NC to maintain O2 sat 97-99%. PLAN: -- Wean o2 as able -- Encourage OOB with PT, IS -- IV Lasix 40mg Postoperative pain 01/28/2022 02/24/2022 Last Assessment & Plan: Assessment: Admitted 02/01 with worsening abdominal pain s/p robotic low anterior resection with colorectal anastomosis and diverting loop ileostomy on 01/27. More abdominal pain this morning, but abdomen soft, Hgb stable, not hypotensive, afebrile and leukocytosis resolving - no data points to suggest intraabd bleed or new infection Pain improving likely 2/2 to hematoma PLAN: -- prn tylenol and oxy for pain - abdominal binder - palliative consulted, appreciate recs Obesity, Class I, BMI 30-34.9 01/26/2022 Essential hypertension 04/30/2021 Last Assessment & Plan: Assessment: takes metoprolol 25mg BID PLAN: - start metop 12.5 BID documented as of this encounter (statuses as of 05/22/2022) [facility]12[facility] History of Past illness Narrative* Problem Noted Date Resolved Date Inadequate pain control 02/16/2022 02/19/20 Last Assessment & Plan: Assessment: poorly controlled abd pain since admission. Reports pain is so bad he wants to pursue comfort care as he does not want to be alive anymore. Has episodes of acute pain then becomes somnolent after opioid administration. 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 Prior to arrival he received 4L crystals, 1 unit whole blood and 2 unit pRBCs. Started on levo and vaso MTP initiated, Level 1 for heating 02/16: pt presented with distended abdomen, tenderness, guarding and hypotension. PLAN: - Transfuse as indicated - Labs with lyte repletion - hold subQ hep per primary - No therapeutic AC for 4 weeks Respiratory insufficiency 02/01/20222021 Last Assessment & Plan: Assessment: extubated 02/05 Mild b/l GOYO atelectasis, satting 98-99% on RA 02/06 Requiring 2L NC to maintain O2 sat 97-99%. PLAN: -- Wean o2 as able -- Encourage OOB with PT, IS -- IV Lasix 40mg Postoperative pain 01/28/2022 02/24/2022 Last Assessment & Plan: Assessment: Admitted 02/01 with worsening abdominal pain s/p robotic low anterior resection with colorectal anastomosis and diverting loop ileostomy on 01/27. More abdominal pain this morning, but abdomen soft, Hgb stable, not hypotensive, afebrile and leukocytosis resolving - no data points to suggest intraabd bleed or new infection Pain improving likely 2/2 to hematoma PLAN: -- prn tylenol and oxy for pain - abdominal binder - palliative consulted, appreciate recs Obesity, Class I, BMI 30-34.9 01/26/2022 Essential hypertension 04/30/2021 Last Assessment & Plan: Assessment: takes metoprolol 25mg BID PLAN: - start metop 12.5 BID documented as of this encounter (statuses as of 05/25/2022) [facility] History of Past illness Narrative* Problem Noted Date Resolved Date Inadequate pain control 02/16/2022 02/19/20 Last Assessment & Plan: Assessment: poorly controlled abd pain since admission. Reports pain is so bad he wants to pursue comfort care as he does not want to be alive anymore. Has episodes of acute pain then becomes somnolent after opioid administration. 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 Prior to arrival he received 4L crystals, 1 unit whole blood and 2 unit pRBCs. Started on levo and vaso MTP initiated, Level 1 for heating 02/16: pt presented with distended abdomen, tenderness, guarding and hypotension. PLAN: - Transfuse as indicated - Labs with lyte repletion - hold subQ hep per primary - No therapeutic AC for 4 weeks Respiratory insufficiency 02/01/20222021 Last Assessment & Plan: Assessment: extubated 02/05 Mild b/l GOYO atelectasis, satting 98-99% on RA 02/06 Requiring 2L NC to maintain O2 sat 97-99%. PLAN: -- Wean o2 as able -- Encourage OOB with PT, IS -- IV Lasix 40mg Postoperative pain 01/28/2022 02/24/2022 Last Assessment & Plan: Assessment: Admitted 02/01 with worsening abdominal pain s/p robotic low anterior resection with colorectal anastomosis and diverting loop ileostomy on 01/27. More abdominal pain this morning, but abdomen soft, Hgb stable, not hypotensive, afebrile and leukocytosis resolving - no data points to suggest intraabd bleed or new infection Pain improving likely 2/2 to hematoma PLAN: -- prn tylenol and oxy for pain - abdominal binder - palliative consulted, appreciate recs Obesity, Class I, BMI 30-34.9 01/26/2022 Essential hypertension 04/30/2021 Last Assessment & Plan: Assessment: takes metoprolol 25mg BID PLAN: - start metop 12.5 BID documented as of this encounter (statuses as of 05/26/2022) [facility] History of Past illness Narrative* Problem Noted Date Resolved Date Inadequate pain control 02/16/2022 02/19/20 Last Assessment & Plan: Assessment: poorly controlled abd pain since admission. Reports pain is so bad he wants to pursue comfort care as he does not want to be alive anymore. Has episodes of acute pain then becomes somnolent after opioid administration. 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 Prior to arrival he received 4L crystals, 1 unit whole blood and 2 unit pRBCs. Started on levo and vaso MTP initiated, Level 1 for heating 02/16: pt presented with distended abdomen, tenderness, guarding and hypotension. PLAN: - Transfuse as indicated - Labs with lyte repletion - hold subQ hep per primary - No therapeutic AC for 4 weeks Respiratory insufficiency 02/01/20222021 Last Assessment & Plan: Assessment: extubated 02/05 Mild b/l GOYO atelectasis, satting 98-99% on RA 02/06 Requiring 2L NC to maintain O2 sat 97-99%. PLAN: -- Wean o2 as able -- Encourage OOB with PT, IS -- IV Lasix 40mg Postoperative pain 01/28/2022 02/24/2022 Last Assessment & Plan: Assessment: Admitted 02/01 with worsening abdominal pain s/p robotic low anterior resection with colorectal anastomosis and diverting loop ileostomy on 01/27. More abdominal pain this morning, but abdomen soft, Hgb stable, not hypotensive, afebrile and leukocytosis resolving - no data points to suggest intraabd bleed or new infection Pain improving likely 2/2 to hematoma PLAN: -- prn tylenol and oxy for pain - abdominal binder - palliative consulted, appreciate recs Obesity, Class I, BMI 30-34.9 01/26/2022 Essential hypertension 04/30/2021 Last Assessment & Plan: Assessment: takes metoprolol 25mg BID PLAN: - start metop 12.5 BID documented as of this encounter (statuses as of 05/29/2022) [facility] History of Past illness Narrative* Problem Noted Date Resolved Date Inadequate pain control 02/16/2022 02/19/20 Last Assessment & Plan: Assessment: poorly controlled abd pain since admission. Reports pain is so bad he wants to pursue comfort care as he does not want to be alive anymore. Has episodes of acute pain then becomes somnolent after opioid administration. PLAN: - shceduled tylenol - PRN Oxy 5 q6 -fent prn -palliative med consult, appreciate recs Hypophosphataemia 2022 02/24/2022 Last Assessment & Plan: PLAN: - replete per SICU order set Malnutrition of mild degree 02/05/2022 03/2 05/2022 Last Assessment & Plan: Corpak placed 02/17 Obesity, Class II, BMI 35-39.9 02/05/2022 0 04/06/2022 Intraabdominal hemorrhage 02/01/20222021 Last Assessment & Plan: Assessment: 02/01 CT was notable for "blush" posterior to the stomach concerning for pseudo-aneurysm of gastric artery and subcutaneous emphysema. Prior to arrival he received 4L crystals, 1 unit whole blood and 2 unit pRBCs. Started on levo and vaso MTP initiated, Level 1 for heating 02/16: pt presented with distended abdomen, tenderness, guarding and hypotension. PLAN: - Transfuse as indicated - Labs with lyte repletion - hold subQ hep per primary - No therapeutic AC for 4 weeks Respiratory insufficiency 02/01/20222021 Last Assessment & Plan: Assessment: extubated 02/05 Mild b/l GOYO atelectasis, satting 98-99% on RA 02/06 Requiring 2L NC to maintain O2 sat 97-99%. PLAN: -- Wean o2 as able -- Encourage OOB with PT, IS -- IV Lasix 40mg Postoperative pain 01/28/2022 02/24/2022 Last Assessment & Plan: Assessment: Admitted 02/01 with worsening abdominal pain s/p robotic low anterior resection with colorectal anastomosis and diverting loop ileostomy on 01/27. More abdominal pain this morning, but abdomen soft, Hgb stable, not hypotensive, afebrile and leukocytosis resolving - no data points to suggest intraabd bleed or new infection Pain improving likely 2/2 to hematoma PLAN: -- prn tylenol and oxy for pain - abdominal binder - palliative consulted, appreciate recs Obesity, Class I, BMI 30-34.9 01/26/2022 Essential hypertension 04/30/2021 Last Assessment & Plan: Assessment: takes metoprolol 25mg BID PLAN: - start metop 12.5 BID documented as of this encounter (statuses as of 06/02/2022) [facility]12-19-2022 History of Past illness Narrative* Problem Noted Date Resolved Date Inadequate pain control 02/16/2022 02/19/20 Last Assessment & Plan: Assessment: poorly controlled abd pain since admission. Reports pain is so bad he wants to pursue comfort care as he does not want to be alive anymore. Has episodes of acute pain then becomes somnolent after opioid administration. 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 Prior to arrival he received 4L crystals, 1 unit whole blood and 2 unit pRBCs. Started on levo and vaso MTP initiated, Level 1 for heating 02/16: pt presented with distended abdomen, tenderness, guarding and hypotension. PLAN: - Transfuse as indicated - Labs with lyte repletion - hold subQ hep per primary - No therapeutic AC for 4 weeks Respiratory insufficiency 02/01/20222021 Last Assessment & Plan: Assessment: extubated 12/8 Mild b/l GOYO atelectasis, satting 98-99% on RA 02/06 Requiring 2L NC to maintain O2 sat 97-99%. PLAN: -- Wean o2 as able -- Encourage OOB with PT, IS -- IV Lasix 40mg Postoperative pain 01/28/2022 02/24/2022 Last Assessment & Plan: Assessment: Admitted 02/01 with worsening abdominal pain s/p robotic low anterior resection with colorectal anastomosis and diverting loop ileostomy on 01/27. More abdominal pain this morning, but abdomen soft, Hgb stable, not hypotensive, afebrile and leukocytosis resolving - no data points to suggest intraabd bleed or new infection Pain improving likely 2/2 to hematoma PLAN: -- prn tylenol and oxy for pain - abdominal binder - palliative consulted, appreciate recs Obesity, Class I, BMI 30-34.9 01/26/2022 Essential hypertension 04/30/2021 Last Assessment & Plan: Assessment: takes metoprolol 25mg BID PLAN: - start metop 12.5 BID documented as of this encounter (statuses as of 06/05/2022) [facility]12-19-2022 History of Past illness Narrative* Problem Noted Date Resolved Date Inadequate pain control 02/16/2022 02/19/20 Last Assessment & Plan: Assessment: poorly controlled abd pain since admission. Reports pain is so bad he wants to pursue comfort care as he does not want to be alive anymore. Has episodes of acute pain then becomes somnolent after opioid administration. PLAN: - shceduled tylenol - PRN Oxy 5 q6 -fent prn -palliative med consult, appreciate recs Hypophosphataemia 2022 02/24/2022 Last Assessment & Plan: PLAN: - replete per SICU order set Malnutrition of mild degree 02/05/2022 03/2 05/2022 Last Assessment & Plan: Corpak placed 02/17 Obesity, Class II, BMI 35-39.9 02/05/2022 0 04/06/2022 Intraabdominal hemorrhage 02/01/20222021 Last Assessment & Plan: Assessment: 02/01 CT was notable for "blush" posterior to the stomach concerning for pseudo-aneurysm of gastric artery and subcutaneous emphysema. Prior to arrival he received 4L crystals, 1 unit whole blood and 2 unit pRBCs. Started on levo and vaso MTP initiated, Level 1 for heating 02/16: pt presented with distended abdomen, tenderness, guarding and hypotension. PLAN: - Transfuse as indicated - Labs with lyte repletion - hold subQ hep per primary - No therapeutic AC for 4 weeks Respiratory insufficiency 02/01/20222021 Last Assessment & Plan: Assessment: extubated 02/05 Mild b/l GOYO atelectasis, satting 98-99% on RA 02/06 Requiring 2L NC to maintain O2 sat 97-99%. PLAN: -- Wean o2 as able -- Encourage OOB with PT, IS -- IV Lasix 40mg Postoperative pain 01/28/2022 02/24/2022 Last Assessment & Plan: Assessment: Admitted 02/01 with worsening abdominal pain s/p robotic low anterior resection with colorectal anastomosis and diverting loop ileostomy on 01/27. More abdominal pain this morning, but abdomen soft, Hgb stable, not hypotensive, afebrile and leukocytosis resolving - no data points to suggest intraabd bleed or new infection Pain improving likely 2/2 to hematoma PLAN: -- prn tylenol and oxy for pain - abdominal binder - palliative consulted, appreciate recs Obesity, Class I, BMI 30-34.9 01/26/2022 Essential hypertension 04/30/2021 Last Assessment & Plan: Assessment: takes metoprolol 25mg BID PLAN: - start metop 12.5 BID documented as of this encounter (statuses as of 07/07/2022) [facility]12-14-2022 Miscellaneous Notes* Telephone Encounter - Tejal Hawkins LPN - 02/11/2022 4:36 PM EST Per [facility] cm, Dr Cheung will follow * Telephone Encounter - Tejal Hawkins LPN - 02/11/2022 11:51 AM EST Please advise if you are agreeable to signing and following for C services? Our Clinicians will be sending the Plan of Care to you for review and approval. They will reach out for any appropriate orders required to provide home care services for the patient. We are not able to initiate HHC services without a following provider. Home care clinicians may also obtain orders from [facility] Virtualist Providers Thank you and we would be happy to answer any questions. Tejal Hawkins LPN 02/11/2022 11:51 AM documented in this encounterSam[facility]12-[facility]-2022 Miscellaneous Notes* Telephone Encounter - Radha Grady - 02/11/2022 11:14 AM EST Welcome Home Call: a. Date and Time: 11:14 AM 02/11/2022 b. Contact name/relationship: Marilu/spouse c. Have you been active with any Home Care company in the last 60 days(such as help with bathing, filling medications, checking your blood pressure) ? No. d. Was patient given Flu shot this Season (After Oct,): No: Patient refused e. [facility] will be providing your care, are you agreeable to starting these services? yes (yes or no) f. Do you have any upcoming appointments in the next few days, or restrictions to your schedule? Not sure g. Caregiver: Yes - Caregiver name Marilu ; spoke with Marilu to confirm 02/11/22 h. Confirmed Visited Location and preferred #: yes Please keep our your medications both over the counter and prescribed out for the home care to review, your hospital discharge instructions and write down any questions you might have. In order to maintain a safe environment for our caregivers, [facility] requires anyanimals or weapons present in the home be located in a secured location. Our clinicians will call you the night before or the morning of the appointment. Their # may come up restricted but they'll leave a VM for you. In case you have any questions or concerns in the meantime, our # is [phone], option [phone] Thank you for your time and have a great day. Radha Grady documented in this encounterSam[facility]12[facility] History of Present illness Narrative* Thiago Ordaz MD - 02/02/2022 12:55 PM EST I, Thiago Ordaz MD, was notified of and approve the order for transfusion of blood products for Jai Luna. Thiago Ordaz MD Sharepoint Developer, Critical Care Transport * Robert Bullock APRN.[facility] - 02/01/2022 6:45 PM EST Images from the original note were not included. Critical Care Transport Note Patient Name: Jai Luna Service Date: 02/01/2022 Referring Physician: Marie Accepting Physician: Ana Referring Facility: [facility]: ER Accepting Facility: [facility]: [id number] SUBJECTIVE/CHIEF COMPLAINT: Hemoperitoneum REASON FOR TRANSPORT: Surgical services required not available or beyond the capabilities of the sending facility. History of Present Illness: The following history is what was known to CCT team at time of given care and summarized through review of available medical records, family interview and from referring physician/nursing report. Jai Luna is a 71 year old male with a past medical history significant for CAD, CABGx3, HTN, rectal cancer s/p resection. He presented to [facility] ER on 02/01/2022 for evaluation of ABD pain. Per report, has history of rectal cancer, is s/p chemotherapy and resection w/ loop ileostomy placed at [facility] 01/27/22. Today, noted sudden acute onset ABD following lunch. On arrival toER, writhing in pain with diaphoresis and ashen appearance. CT ABD at OSH notes hemoperitoneum w/ large amounts of subcutaneous emphysema and intraperitoneal free air. Volume resuscitated w/ 4L IVF and given 2units PRBC's by OSH for persistent hypotension. [facility] consulted at this time and pt acceptedfor transfer. At this time, the physician managing the patient requested transfer to the [facility] for tertiary and/or quaternary services unavailable at the referring facility. Patient condition at time of exam was: Acutely ill and critically ill. Due to the unique circumstances of the patient, it was determined that this was the closest, most appropriate facility by referring physician. The physician managing the patient requested the [facility] Critical Care Transport Team transport and treat the patient for the purpose of tertiary care, evaluation, and management of his GI condition(s). Air medical transport was requested to reduce the [id number] time (21 minutes by air vs. approximately 72 minutes by ground) with the potential for increased ground transport time secondary to: traffic congestion and distance between facilities and ground round transport time wouldbe excessive and detrimental to patient given current clinical status. REVIEW OF SYSTEMS: Could not obtain due to patient's mental status/critical condition. PAST MEDICAL HISTORY: CAD, HTN, Dilated aortic root, HLD, Meniere's Disease, Rectal Ca (s/p resection) PAST SURGICAL HISTORY: CABG x3, ALLERGIES: Clindamycin and Codeine SOCIAL HISTORY: Social History Tobacco Use Smoking status: Former Packs/day: 1.00 Years: 30.00 Pack years: 30.00 Types: Cigarettes Quit date: 01/29/2000 Years since quittin.0 Smokeless tobacco: Never Vaping Use Vaping Use: Never used Substance Use Topics Alcohol use: Yes Comment: rarely Drug use: No HOME MEDICATIONS: Unknown, no list provided. Medications Administered by Referring Facility: - PRBC x2 - IVF 4000mL - Meropenam OBJECTIVE: Recent Labs, Diagnostics & Procedure Reports reviewed as available. Referring Facility Labs CBC: WBC 11.1k, Hgb 10.6, Hct 32.9, Plt 220K CHEMISTRY: Na 136, K 3.4, Cl 104, CO2 18, BUN 24, SCr 1.75, Glu 261 AST 17, ALT 20, T.Bili 0.7, Uche 7.8, ANG 14 Lactate 8.7 SARS CoV-2 PCR: Negative Diagnostics & Procedure Reports ECG: Personally Reviewed - SR/ST on bedside tele/CCT monitor. CT Scan (ABD/Pel): Radiology Interpretation - "Hemoperitoneum w/ findings consistent w/ an active bleed within the left upper quadrant posterior to the gastric fundus; cannot entirely exclude gastricperforation. Intraperitoneal free air likely secondary to recent surgical intervention. Ill-definedopacities within the omentum/peritoneum may be secondary to the hemoperitoneum however, cannot entirely exclude neoplastic process. Subcutaneous emphysema throughout the abdomen and pelvis as well aswithin the scrotum; may be partially secondary to recent surgical intervention however, cannot exclude a gas producing organism. Minimal intraperitoneal free air likely secondary to recent surgical intervention." Invasive Lines/Devices/Tubes Placed by Referring Facility: - PIV x3 - Henriquez Catheter PHYSICAL EXAM: Upon CCT Arrival at Referring Facility Vital Signs: HR 90bpm, BP 70/51mmHg, RR 28, SpO2 97% Oxygen/Ventilator Settings: RA General appearance: Severe distress, acutely ill, [place] HEENT: normocephalic, EOMI, PERRL (~3mm bilat.). Oropharynx clear, no plaques or exudates, posterior oropharynx symmetric, mucous membranes moist. Respiratory: Clear to auscultation bilaterally, no respiratory distress, rales, rhonchi, or wheezing. Cardiovascular: SR/ST, normal S1/S2, no murmurs, no rubs, no gallops. Gastrointestinal: Diffuse/severe pain w/ light touch x4, ABD rigid. Ileostomy intact, no bloody output noted. Genitourinary: Deferred. FC in-situ. Musculoskeletal: No clubbing, cyanosis or edema, normal ROM, no deformities, equal palpable peripheral pulses, and normal strength. Skin: Cool, mottled from abdomen inferiorly to feet. no abrasions or open wounds, no rashes noted. Heme/Lymph: No abnormal bleeding or petechiae noted. Neurologic: Alert, hard or hearing, follows all commands as able, moving spontaneously. CRITICAL CARE COURSE Upon bedside arrival at referring facility the patient was assessed and detailed physical exam performed. Initial exam findings as described above. The patient was placed on the transport monitor andall transport equipment transitioned in standard fashion. The patient was transferred to the transport cot and transported to the Aircraft and loaded without incident. The patient was medically managed, monitored, and reassessed during transport. Medications Managed & Administered by CCT: - Norepinephrine infusion -- Initiated/Titrated. Procedures Performed by CCT: - Arterial Line -- Right Brachial (Ultrasound Guided) - Blood Transfusion -- 1unit O-Pos. Whole Blood (#[id number]) - Jai Luna requires emergent blood transfusion as indicated by one of the following: Acute blood loss (known or suspected) with hemodynamic instability or other signs of shock with a Hgb eitherunknown or >7 where control of the hemorrhage source is not able to be obtained. - The risks, benefits, and alternatives to blood transfusion have been discussed with the patient or dermatology sales representative who cannot consent due to clinical urgency. - Jai Luna requires O+ WHOLE BLOOD. The indication being treatment of anemia and Other: hemorrhagic shock/hemoperitoneum. - The provider (Dr. Wynn and SICU MDs) at the receiving facility was notified that the patient received O+ whole blood. - Patient verified: Yes - Procedure/Site verified: Yes - Physician Notified: Justin Ordaz MD / Angel Bullock, FLOW SPECIALIST.SECURITY SYSTEM INSTALLER ASSESSMENT/PLAN: In short, Jai Luna is a 71 year old male who presented to OSH w/ acute onsetsevere ABD pain. CT ABD noted hemoperitoneum w/ large amounts of subcutaneous emphysema present. For CCT: critical/acutely ill. Receiving 2units PRBC's on arrival to bedside in addition to large volume of crystalloid he previously received. Despite this remains hypotensive. MAL placed for close HD monitoring. Continues to be persistently hypotensive, will start NE infusion and administer 1unit WBat this time for likely hemorrhagic shock. Consider CaCl2 if requires additional blood products. Appears to be alert ([place] so difficult to assess), protecting his airway at this time. Will likely needintubated in the near future however, will continue to aggressively resuscitate first as he may notphysiologically tolerate intubation at this time. EtCO2 NC placed for transport to monitor respiratory status. Hypocapneic, this is expected given his metabolic acidosis. Discussion had w/ at bedside before departure regarding GOC. He is full code at this time and would be amenable to intubation if needed. Transferred to SICU for further management. Hemorrhagic Shock Acute Blood Loss Anemia Metabolic Acidosis Lactic Acidosis Acute Kidney Injury (FINESSE) - Presented w/ acute ABD pain. Noted to have hemoperitoneum. - Protecting airway at this time, low threshold for intubation if needed. - Place EtCO2 cannula for monitoring of respiratory status in transport. - Continue volume resuscitation, transfuse 1unit Whole Blood now. - Start Norepinephrine infusion, titrate for MAP 65-75mmHg. - Place arterial line for close HD monitoring in transport. - Expedite transfer to [facility] for further SICU/surgical management. The transport was completed without significant incident or change in the patient's status. The patient was transported to the the [facility] by Rotor (Helicopter) for tertiary and/or quaternary evaluation and management of his Emergent and Critical Surgical condition(s). Upon arrival to the receiving facility, a [id number] report was given to bedside nursing staff [id number] and Staff Physician: MD Kingsley . Patient care was transferred. The patient condition was Critical and Acutely Ill at the time of transfer. Vital Signs at time care transferred to the receiving facility unit: HR 99bpm, Rhythm SR, BP 97/64mmHg, RR 26, SpO2 UNK (3lpm NC), EtCO2 7 SPECIAL EQUIPMENT: None MODE OF TRANSPORT: Rotor (Helicopter) CRITICAL CARE TIME: I personally performed 40 minutes of critical care time exclusive of separatelybillable procedures, ambulance charges and treating other patients. This was necessary to treat or prevent further deterioration of the following condition(s): Hemodynamic compromise and Shock which the patient had and/or had a high probability of suddenly developing. SIGNATURE: Robert Bullock APRN.CNP Acute Care Nurse Practitioner [facility] Critical Care Transport Team documented in this encounterSamaritan [facility]12-04-2022 History of Past illness Narrative* Problem Noted Date Resolved Date Respiratory insufficiency 02/01/20222021 Last Assessment & Plan: Assessment: extubated 02/05 Mild b/l GOYO atelectasis, satting 98-99% on RA 02/06 Requiring 2L NC to maintain O2 sat 97-99%. PLAN: -- Wean o2 as able -- Encourage OOB with PT, IS -- IV Lasix 40mg documented as of this encounter (statuses as of 02/11/2022) [facility]12-04-2022 Procedure note* Robert Bullock APRN.CNP - 02/01/2022 11:54 AM ESTProcedure(s): ARTERIAL LINE PLACEMENT CC Pre-Procedure Diagnose(s): Hemorrhagic shock (HCC) Post-Procedure Diagnose(s): Hemorrhagic shock (HCC) Images from the original note were not included. PROCEDURE NOTE: Arterial Line Patient: Jai Luna Date: February 01, 2022 INFORMED CONSENT: Informed consent was not obtained due to clinical factors necessitating an emergent procedure. SAFE PRACTICE Sign in Communication: Emergent N/A. Time Out: The procedural team confirmed the Correct Patient, the Correct Procedure, the Correct Site and the Correct Position (if applicable) during the audible time out: Emergent N/A. Sign Out Communication: Emergent N/A. INDICATION FOR LINE PLACEMENT: Continuous blood pressure monitoring CONDITION OF LINE PLACEMENT: Sterile PRIMARY PROCEDURALIST: Robert Bullock CNP PUMPING STATION SUPERVISOR(S): Milagros Malik RN PROCEDURE NARRATIVE Site Marked: Yes Alvaro s Test: Appropriate Skin Preparation: Chlorhexidine Gluconate Barriers Used by Proceduralist and All Assisting Personnel: Yes Barriers Used: Sterile Gloves & Sterile Drape CATHETER PLACEMENT/PLACEMENT TECHNIQUE The right brachial artery was cannulated with a 20 g arterial catheter under ultrasound guidance. Guidewire confirmed in the vessel on longitudinal view. Number of attempts at insertion: 1 Bright red pulsatile blood exited catheter: Yes Appropriate wave form was noted: Yes Line Secured with: Tegaderm & tape. Sterile dressing applied and dated: Yes Estimated Blood Loss: Trace Procedure was performed while vehicle in motion: No COMPLICATIONS: None. Guidewire intact on removal from patient. The patient tolerated the procedure: Yes Successful Placement: Yes SIGNATURE: Robert Bullock APRN.CNP Acute Care Nurse Practitioner [facility] Critical Care Transport Team documented in this encounterSamaritan [facility] Center12-02-2022 Miscellaneous Notes* CARE COORDINATION - Leandro Cruz RN - 01/30/2022 12:00 PM EST SN contacted Brenda on 01/30/22 for the following: ileostomy supplies Coloplast 1 piece drainable pouch #[id number] (1) box elastic barriers (1) box [place] Protective seals (1) box adhesive remover (1) loaf 4x4 non woven gauze documented in this encounterSamaritan [facility] Center12-02-2022 Miscellaneous Notes* SN SOC - Britta Mantilla RN - 01/30/2022 9:21 AM EST SITUATION: [facility] SOC visit completed today. spouse also present during today's visit. patient reports the following: Allergies--reviewed Medications--full medication reconciliation completed Falls--None DME-Reviewed and added to chart BACKGROUND: Discharged/Referral from acute care hospital on 01/28/22 following treatment for robotic laparoscopic low anterior resection with colorectal anastomo sis (EEA 31) with intraoperative angiogram (firefly) with diverting loop ileostomy and flexible sigmoidoscopy (negative leak test) . Pertinent referral information or other diagnoses that may affect plan of care: HTN. ASSESSMENT: SN greeted at door by patient no DME and demonstrates stable gait. Patient appears in no acute distress. Patient lives at home with spouse. Home environment: clean and uncluttered. SOC booklet reviewed & completed with patient and consent obtained for Home Care services. Patient/CG concerns verbalized today: no special concerns, lots of questions about ostomy care and diet. Vitals (see flow sheet for details): stable SN findings today: Pt is ambulating in the home without a device, gait is steady. Pt lives in a 2 story home and is able to use stairs independently.He lives with his spouse who is assisting with ADL's (mostly supervision) and IADL's. No community needs were identified. Pt with planned surgery to treat rectal CA resulting in temporary ileostomy (anticipate for about 3 months). Pt is very willing to learn and plans to do his own ostomy care. Abdomen is still somewhat distended from surgery but is mostly soft. Ielostomy output is a dark green at this time, pt did have slightly over 1300 cc output yesterday and reviewed Immodium dosing with pt, he is going to start off at 2 x day today and adjust as needed to keep output below 1200 ml. BP dropped after taking the metoprolol this am and pt reports that he has not been urinating much. SN stressed the importance of hydration. suggested that pt keep track of intake for the next few days to be sure that he is taking in more than he is puttingout. suggested that he should be taking about 64 oz of fluids per day. Pt has 3 lap sites on abdomen that are covered with steristips. There is a wound that is a previous drain site that is clean anddry, open to air. Ileostomy pouch is intact. SN assisted pt with changing pouch; stomais beefy red and slightly edematous,it is noted that outlet points straight down. There was some evidence of stool undermining at 3 and 9 oclock, no depressions are noted-suspect that these depressions noted on referral were from the recently removed aruna as pt came home the day after surgery. Stoma is slightly oval, there is a very small wound noted at 9 oclock, powder used to the area. SN placed one piece convex pouch using barrier ring. Pt is very receptive to care and is very well educated on the pouch change procedure as well as diet restrictions, etc. See intervention summary for education details and skills performed. Plan of care and visit frequency established with patient and plan of care agreed upon. Patient demonstrated a need for further skilled SN services for ostomy management & education. RECOMMENDATION: Visit Frequency: 2 wk 3 1 wk 1 Need for additional services: Patient agreeable to N/A referrals. Patient declined N/A referrals. Additional concerns to be followed up on: NONE Next visit to focus on (be specific): have pt return demonstrate as much as he is able for ileostomy care, assess stoma and peristomal skin condition. documented in this encounterSam[facility]-30-2022 Miscellaneous Notes* Telephone Encounter - Radha Grady - 01/28/2022 2:21 PM EST Welcome Home Call: a. Date and Time: 2:22 PM 01/28/2022 b. Contact name/relationship: Marilu/spouse c. Have you been active with any Home Care company in the last 60 days(such as help with bathing, filling medications, checking your blood pressure) ? No. d. Was patient given Flu shot this Season (After Oct,): No: Patient refused e. [facility] will be providing your care, are you agreeable to starting these services? yes (yes or no) f. Do you have any upcoming appointments in the next few days, or restrictions to your schedule? Not sure g. Caregiver: Yes - Caregiver name Marilu ; spoke with Marilu to confirm 01/28/22 h. Confirmed Visited Location and preferred #: yes Please keep our your medications both over the counter and prescribed out for the home care to review, your hospital discharge instructions and write down any questions you might have. In order to maintain a safe environment for our caregivers, [facility] requires anyanimals or weapons present in the home be located in a secured location. Our clinicians will call you the night before or the morning of the appointment. Their # may come up restricted but they'll leave a VM for you. In case you have any questions or concerns in the meantime, our # is [phone], option [phone] Thank you for your time and have a great day. Radha Grady documented in this encounterSam[facility] Center11-15-2022 Miscellaneous Notes* Telephone Encounter - La Calvillo RN - 01/13/2022 10:03 AM EST Per provider request. Called patient. Spoke to Marilu and instructed that patient is to stop hisPlavix 5 days prior to surgery. understood instructions and will share with Chaka. La Calvillo RN January 13, 2022 10:05 AM documented in this encounterSam[facility]11-15-2022 Miscellaneous Notes* Telephone Encounter - Kush Hutchinson Coord - 01/13/2022 9:25 AM EST Plavix instructions and Outside Cardiology office note has been scanned in. * Telephone Encounter - Calista Mixon RN - 01/12/2022 3:23 PM EST Can someone call this patient's trading specialist (Dr. Helen Roa at [facility])? I requested optimization and Plavix instructions. He was seen last week on 01/09. Called Dr. Roa's office at [phone]. Deborah from that office states that the letter was faxed to [facility] one hour ago. documented in this encounterSam[facility]11-09-2022 History of Present illness Narrative* Jovanna Fuentes RN - 01/07/2022 12:30 PM EST Radiology Service Progress Note DATE OF SERVICE: January 07, 2022 TIME: 11:49 AM PATIENT WEIGHT: 195LBS PATIENT IDENTITY VERIFICATION COMPLETED USING TWO (2) STANDARD IDENTIFIERS: Name and Date of confirmed by patient verbally and Name and Date of confirmed by identification band. FALL SCREENING: Has the patient had 2 falls in the last year or 1 fall with injury or currently using an Ambulatory Assistive Device (Walker, Cane, Wheelchair, Crutches, etc.)? No PATIENT GENDER DATA: Male ALLERGIES: Reviewed and unchanged CONTRAST ALLERGY: No EXAM: CT -CONTRAST INDUCED NEPHROPATHY RISK FACTORS: Patient age > 60 years CREATININE: Creatinine Date Value Ref Range Status 01/07/2022 0.92 0.73 - 1.22 mg/dL Final 07/14/2021 0.86 0.73 - 1.22 mg/dL Final 07/07/2021 0.88 0.73 - 1.22 mg/dL Final Estimated Glomerular Filtration Rate Date Value Ref Range Status 01/07/2022 89 >=60 mL/min/1.73m Final Comment: Estimated Glomerular Filtration Rate (eGFR) is calculated using the 2020 CKD-EPI creatinine equation. This equation utilizes serum creatinine, sex, and age as parameters. The creatinine assay has traceable calibration to isotope dilution- mass spectrometry. Refer to KDIGO guidelines for clinical interpretation. In patients with unstable renal function, e.g. those with acute kidney injury, the eGFRmay not accurately reflect actual GFR. eGFR- Date Value Ref Range Status 03/21/2021 >60 Final P.O.C.T. RESULTS: N/A January 07, 2022 TREATMENT: No Hydration needed. IV SITE: Ambulatory: A peripheral IV was started in the Left antecubital site with a Angio cath: 22gauge. and A Saline lock was inserted per protocol IV SITE APPEARANCE: Clean,Dry and Intact SIGNATURE: Jovanna Fuentes RN PATIENT NAME: Jai Luna DATE: January 07, 2022 TIME: 11:49 AM documented in this encounterSam[facility]11-09-2022 History of Present illness Narrative* RT Felice(R) - 01/07/2022 11:30 AM EST Radiology Service Progress Note PATIENT NAME: Jai Luna DATE OF SERVICE: January 07, 2022 TIME: 12:26 PM PATIENT IDENTITY VERIFICATION COMPLETED USING TWO (2) IDENTIFIERS: Name and Date of confirmedby patient verbally and Name and Date of confirmed by identification band. FALL SCREENING: Has the patient had 2 falls in the last year or 1 fall with injury or currently using an Ambulatory Assistive Device (Walker, Cane, Wheelchair, Crutches, etc.)? No PATIENT GENDER DATA: Male PATIENT RELEVANT IMPLANT DATA REVIEWED: Yes RADIOLOGY DEPARTMENT: CT; Exam(s) Completed: Chest Abdomen Pelvis PERIPHERAL IV DATA: Site assessment: Clean,Dry and Intact, Site disposition Discontinued SIGNED BY: RT Felice(R) January 07, 2022 12:26 PM documented in this encounterSam[facility]11-09-2022 Instructions* Patient Instructions* Kristel John PA-C - 01/07/2022 8:18 AM EST PATIENT PREOPERATIVE INSTRUCTIONS Ramiro Cheung MD has scheduled you for your procedure at this surgery center: [facility] Scheduling Office: [phone] --[address] [place] [address]. Please read below carefully for your personalized instructions. Dietary Restrictions: - No solid food after midnight. - You may have 12 ounces of clear liquids (water, clear juices such as apple juice or gatorade, carbonated beverages, clear tea, black coffee, jello) until 2 hours before scheduled arrival at facility. - Follow bowel prep instructions: clear liquids need to be stopped 2 hours prior to schedule arrival at facility Medications: Unless instructed differently below, stay on all of your medications until your surgery. Approved medications to take the morning of surgery with a sip of water: metoprolol If you take any medications for erectile dysfunction-Cialis (Tadalafil), Levitra, Staxyn (Vardenafil) Viagra (Sildenenafil please do not take these for 48 hours before surgery. If you start any new medications after today's visit, please contact the surgeon's office. Blood Thinning Medications: - Stop NSAIDS (Ibuprofen, Advil, Aleve, Motrin, Celebrex, Mobic, etc.) 7 days before surgery, as directed by your surgeon. - Do NOT stop aspirin or other anticoagulants without consulting with your trading specialist or prescribing physician. - Stop Vitamin E, ALL multi-vitamins, herbals and dietary supplements 7 days before surgery. - You may take Tylenol (Acetaminophen) or any of your pain medications that do not contain aspirin or NSAIDS as needed. - I will call with Plavix instructions Important Reminders: - Candy, mints, and tobacco products are NOT permitted the morning of surgery. - Hearing aids, dentures and glasses may be worn the morning of surgery. - NO jewelry, body piercings, makeup, hairpins or contacts are to be worn the day of surgery. If you develop symptoms such as a fever, cold, or flu, or have other changes to your health within TWO DAYS of scheduled surgery or the morning of surgery, please contact the surgery center above. Personal Belongings: -Please have photo ID and insurance cards. -If you do not have a copy of advance directives on file with us, please bring a copy with you on the day of surgery. - Leave ALL valuables and money at home or with family members. For Outpatient Procedures: - YOU MUST HAVE A RESPONSIBLE REGULATORY SUBMISSIONS SPECIALIST TAKE YOU HOME. A ROLLER MECHANIC OR PLASTIC DESIGN APPLIER CANNOT BE MADE A RESPONSIBLE REGULATORY SUBMISSIONS SPECIALIST. - We recommend that a responsible person stays with you overnight to take care of you. - You cannot stay in a hotel alone after outpatient surgery. You will not be permitted to have yoursurgery, if you do not have someone to take care of you. Arrival Time for Surgery: - To obtain your arrival time for surgery, call your physician's office the day before your surgery. - If your surgery is scheduled for Wednesday, call the Wednesday before. Your surgeon s vibrator operator will tell you what time to call the office. - If you have not reached the departmental vibrator operator by 5 P.M., call [phone] after 5 P.M. the day before your surgery. Please be aware that emergency situations arise, which may delay or change your surgical time. If this happens, we will notify you as soon as possible and regret any inconvenience. If you already have an Advance Directive, please fax a copy to [phone] or email to for it to be added to your chart. If you do not have an Advance Directive, you can find the appropriate form and more information at [email or web address]. We recommend that youcomplete the Advance Directive form found on the website and bring it with you the day of your surgery. It can be witnessed and scanned into your chart that day. Kristel John PA-C documented in this encounterSam[facility]11-09-2022 History and physical note * Kristel John PA-C - 01/07/2022 8:00 AM EST HISTORY AND PHYSICAL EXAMINATION SERVICE DATE: 01/07/2022 SERVICE TIME: 8:07 AM PRIMARY CARE PHYSICIAN: No primary care provider on file. REASON FOR VISIT: Jai Luna is a 71 year old male who is scheduled for ROBOTIC LAPAROSCOPIC PROCTOSIGMOIDECTOMY ANTERIO RIGHT W/ LOW PELVIC ANASTAMOSIS W/OSTOMY at the request of Dr. Ramiro Cheung for consultation. My final recommendation will be communicated back to the requesting physician by way of shared medical record or letter. The patient has the following: ACTIVE PROBLEM LIST Acoustic Neuroma (Hcc) Atherosclerosis of Coronary Artery Bypass Graft Bilateral Carotid Artery Stenosis Cervical Radiculopathy Dyslipidemia Essential Hypertension Hearing Loss History of Cardiac Catheterization History of Myocardial Infarction Status Post Coronary Artery Bypass Graft Rectal Malignant Neoplasm (Hcc) Subjective CHIEF COMPLAINT: rectal cancer HPI: 71 year old male scheduled for ROBOTIC LAPAROSCOPIC PROCTOSIGMOIDECTOMY ANTERIO RIGHT W/ LOW PELVIC ANASTAMOSIS W/OSTOMY on 01/27/2022. Patient has rectal cancer that was found on colonoscopy in03/2021. He completed chemoradiation in June. Denies any current symptoms. Denies any fever, chills, n ausea, vomiting, chest pain, abdominal pain, SOB. 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 Coronary atherosclerosis of unspecified type of vessel, seneca or graft Coronary artery disease Diverticulosis of colon (without mention of hemorrhage) History of transfusion Hypertension Rectal mass PAST SURGICAL HISTORY Procedure Laterality Date COLONOSCOPY 03/20/2021 COLONOSCOPY FLX DX W/COLLJ SPEC WHEN PFRMD 08/24/2007 Colonoscopy CORONARY ARTERY BYP W/VEIN & ARTERY GRAFT 3 VEIN 03/01/1994 CABG, three grafts EYE SURGERY HX HEART SURGERY HX PERC TRANSL COR ANGIO 10/31/2003 Percutaneous Transluminal Coronary Angio Status PROSTATE SURGERY HX STRABISMUS RECESSION/RESCJ 1 HRZNTL MUSC Strabismus surgery TONSILLECTOMY HX TONSILLECTOMY PRIMARY/SECONDARY <AGE 12 Tonsillectomy VASCULAR SURGERY PROCEDURE FAMILY HISTORY Problem Relation Age of Onset Heart Father Emphysema Mother Emphysema Sister Anesthesia Problems No Family History SOCIAL HISTORY: Social History Tobacco Use Smoking status: Former Packs/day: 1.00 Years: 30.00 Pack years: 30.00 Types: Cigarettes Quit date: 01/29/2000 Years since quittin.9 Smokeless tobacco: Never Vaping Use Vaping Use: Never used Substance Use Topics Alcohol use: Yes Comment: rarely Drug use: No MEDICATIONS: Prior to Admission medications as of 01/07/22 0809 Medication Sig Last Dose Taking clopidogrel (PLAVIX) 75 mg tablet Take 75 mg by mouth once daily. Taking Yes metoprolol succinate ER (TOPROL XL) 25 mg 24 hr tablet Take 1 tablet by mouth twice daily. Taking Yes atorvastatin (LIPITOR) 80 mg tablet Take 0.5 tablets by mouth daily at bedtime. For cholesterol. Taking Yes polyethylene glycol 3350 (MIRALAX, GLYCOLAX) 17 gram/dose powder Use as directed for Miralax / Gatorade Bowel Prep Kit Patient not taking: Reported on 01/07/2022 Not Taking Gatorade Sports Drink Use as directed for Miralax / Gatorade Bowel Prep Kit Patient not taking: Reported on 01/07/2022 Not Taking Bisacodyl (DULCOLAX) 5 mg tab Use as directed for Miralax / Gatorade Bowel Prep Kit Patient not taking: Reported on 01/07/2022 Not Taking neomycin 500 mg tablet Take 2 tablets by mouth at 9pm and take 2 tablets by mouth at 11pm the nightbefore surgery. Patient not taking: Reported on 01/07/2022 Not Taking metroNIDAZOLE (FLAGYL) 500 mg tablet Take 1 tablet by mouth at 9pm and take 1 tablet by mouth at 11pm the night before surgery. Patient not taking: Reported on 01/07/2022 Not Taking hydrocortisone (ANUSOL-HC) 25 mg suppository 1 Suppository by RECTAL route twice daily. naproxen (NAPROSYN) 500 mg tablet Take 1 tablet by mouth twice daily with meals. polyethylene glycol 3350 (MIRALAX, GLYCOLAX) 17 gram packet Take 17 g by mouth once daily. Dissolvedose in 4 - 8 ounces of liquid and take as directed. capecitabine (XELODA) 150 mg tablet Take 1 tablet (150mg) by mouth twice daily with food. Take with1 other capecitabine prescription for 1650mg total. Take on radiation days (Wednesday to Wednesday). capecitabine (XELODA) 500 mg tablet Take 3 tablets (1500mg) by mouth twice daily with food. Take with 1 other capecitabine prescription for 1650mg total. Take on radiation days (Wednesday to Wednesday). No medication comments found. CURRENT ALLERGIES: ALLERGIES Allergen Reactions Clindamycin GI Upset Codeine COVID VACCINATION STATUS: Not vaccinated, prior infection REVIEW OF SYSTEMS: PAIN ASSESSMENT: General: No weight loss, malaise or fevers. Neuro: Negative for TIA's Headaches Seizures Stroke-residual deficit Stroke-No residual deficit Parkinson's Disease Multiple Sclerosis Impaired Sensorium +acoustic neuroma left side monitored with imaging Respiratory: No history of current cough or dyspnea, or pneumonia in the past 6 weeks. No history of respiratory/pulmonary symptoms or problems. Cardiovascular: Negative for Angina, Arrhythmia, Chest Pain, CHF, PVD, Valvular Heart Disease, DVT/PE+CAD-s/p CABG 1998 and PCI with multiple stents most recent 2016, per [facility] note stress test 03/2018 negative for ischemia, +HLD, +HTN, +carotid artery stenosis- per previous [facility] note Carotid US 04/2020"Irregular calcific plaque in the proximal left internal and external carotid arteries with 50 to 69 % stenosis left proximal internal carotid Bidirectional flow left vertebral left vertebral suspicious for proximal left subclavian stenosis." GI: No history of GI symptoms or problems. No history of esophageal varices, recent ascites, or ETOH greater than 2 drinks per day. : No history of dysuria, frequency or incontinence,, stones or chronic kidney disease Endocrine: No history of diabetes. Has not taken steroids within the past 30 days. No history of endocrinological symptoms or problems. Hematology: No history of bleeding or clotting disorder. No history of hematological symptoms or problems.+Plavix Oncology: See HPI Psych: No history of psychiatric symptoms or problems. Musculoskeletal: Negative for joint pain or swelling, back pain or muscle pain. Skin: Negative for lesions, rash and itching. Objective PHYSICAL EXAM: VITALS: BP 150/78 Pulse 47 Temp (Src) 97.6 (Temporal) Ht 5' 6" (1.68m) Wt 195 lb 6.4 oz (88.6kg) SpO2 97% BMI 31.55 kg/(m^2). General: Alert and oriented, No acute distress Skin: Normal color, no rash, no lesions. HEENT: EOM, pupils equal, round and reactive., No carotid bruits Cardiovascular: Normal S1 & S2, no rubs, murmurs or gallops. No JVD. Pulse regular. Lungs: Normal breath sounds, no wheezes or crackles. Extremities: No deformity, no edema or tenderness, no joint swelling or clubbing. Neurological: Normal cognition and motor skills. Gait normal. No weakness or sensory deficit. Pulses: Carotid and radial pulses normal +2. Diagnostic tests reviewed for today's visit: Lab Value Units Date High Low HB 12.5 g/dL 07/14/2021 17.0 13.0 HCT 37.0 % 07/14/2021 51.0 39.0 WBC 3.18 k/uL 07/14/2021 11.00 3.70 PLT 131 k/uL 07/14/2021 400 150 NA 139 mmol/L 07/14/2021 144 136 K 4.2 mmol/L 07/14/2021 5.1 3.7 GLUC 108 mg/dL 07/14/2021 99 74 BUN 11 mg/dL 07/14/2021 24 9 CREAT 0.86 mg/dL 07/14/2021 1.22 0.73 PTSEC No results within date range. INR No results within date range. APTT No results within date range. ALT 32 U/L 07/14/2021 54 10 AST 39 U/L 07/14/2021 40 14 TBILI 0.4 mg/dL 07/14/2021 1.3 0.2 TSH No results within date range. Lab Value Units Date High Low HCGQT No results within date range. UHCG No results within date range. HCG, BODY* No results within date range. Lab Value Units Date High Low ABORHD No results within date range. ABSCREEN No results within date range. No results found for: HBA1C Labs pending EKG 01/07/22 pending Assessment/Plan Acoustic neuroma (HCC) -hearing loss on left side -monitored with imaging Atherosclerosis of coronary artery bypass graft -history of CAD s/p CABG 1998 and multiple stents since, most recent in 2016 -per note in [facility] last stress test 2018 negative for ischemia, has not followed up since then -denies cardiac symptoms, EKG pending -patient to schedule pre-op appointment with his trading specialist, Dr. Helen Roa, as he has not followed up in 3 years Essential hypertension -BP elevated in office 179/72, 173/68, recheck manually 150/78 -patient reports he is anxious today from the drive -BP at home usually around 110/70 -denies cardiac symptoms Rectal malignant neoplasm (HCC) -s/p chemoradiation completed in June Dyslipidemia -stable on rx Bilateral carotid artery stenosis -per previous [facility] note Carotid US 04/2020 "Irregular calcific plaque in the proximal left internal and external carotid arteries with 50 to 69% stenosis left proximal internal carotid Bidirectional flow left vertebral left vertebral suspicious for proximal left subclavian stenosis." -denies history of TIA or CVA METS: Climb a flight of stairs or walk up a hill (5.50 METs) Patient denies any chest pain or undue shortness of breath with the above physical activity. Uses exercise equipment daily at home and golPeerby in the summer ASA Class: 3 ANESTHESIA FINDINGS: Intubation History: No history of difficult intubation Significant Anesthesia Considerations: Difficult IV/Vein Access: has required US machine once Airway Exam: General: Normal appearance Mallampati Score is CLASS III ULBT: Class I - Lower incisors can bite the upper lip above the latrice line Neck: Normal appearance and function, Distance from hyoid to mentum during neck extension is at least 3 finger breaths Mouth: Normal tongue size and Mouth opening greater than 2 finger breaths Dentition: Intact and Implants Airway History: No abnormal airway history STOP BANG Score: Criteria: Hypertension Age over 50 (71 year old) Male gender Score = 3 PLAN This patient is optimally prepared for surgery pending LABS, EKG, and CONSULTATION WITH CARDIOLOGY. CONSULTS: The following consults have been initiated at this time: Discussed with anesthesiologist, Dr. Araujo, regarding patient medical history and last F/U with trading specialist in 2019. Recommends seeing cardiology prior to surgery, NT Pro BNP, and Troponin today. Cardiology appointment scheduled for tomorrow, patient refused appointment, stated he could not come back to [place] tomorrow. Patient will make an appointment with his trading specialist, Dr. Helen Roa. Letter sent to trading specialist for optimization and Plavix instructions. The Following Tests/Procedures Have Been Initiated: Orders Placed This Encounter NT PRO BNP Standing Status: Future Number of Occurrences: 1 Standing Expiration Date: 03/09/2022 Scheduling Instructions: In preparation for this test, do not take multivitamins or dietary supplements containing biotin (vitamin B7) for at least 12 hours. Biotin is commonly found in hair, skin, and nail supplements and multivitamins. Tell your doctor if you take supplements containing biotin as part of your medication history. TROPONIN T Standing Status: Future Number of Occurrences: 1 Standing Expiration Date: 03/09/2022 Scheduling Instructions: In preparation for this test, do not take multivitamins or dietary supplements containing biotin (vitamin B7) for at least 12 hours. Biotin is commonly found in hair, skin, and nail supplements and multivitamins. Tell your doctor if you take supplements containing biotin as part of your medication history. CONSULT TO CARDIOLOGY Standing Status: Future Standing Expiration Date: 01/07/2023 Order Specific Question: Does consulting provider have [facility] Epic access? Answer: Yes CBC, CMP, T&S, CON, and EKG per surgical service. Planned Anesthetic: General Instructions Given to Patient: Instructions located in the after visit summary. Patient given verbal and written preop instructions and voices comprehension and compliance. SIGNATURE: Kristel John PA-C PATIENT NAME: Jai Luna DATE: January 07, 2022 TIME: 8:32 AM documented in this encounterSam[facility]10-12-2022 History of Present illness Narrative* I Dutch Cheung MD - 12/10/2021 10:00 AM EDT COLORECTAL SURGERY Follow-up December 08, 2021 Chief complaint: rectal squamous cell carcinoma T3dN+ HPI: Jai Luna is a 71 year old male originally referred by Dr Oneill for the surgical evaluation ofa rectal mass. Jai underwent a colonoscopy with Dr Oneill on 03.20.21 due to a change in bowel habits. He was found to have a partially obstructing mass in the rectum - biopsies of this revealed submucosa with chronic inflammation, histiocytes, and rare atypical cells, not diagnostic. MRI rectum showed T3dN+, CT C/A/P was negative for metastatic disease. CEA has not been done yet. His case was presented to [facility] where it was recommended to proceed with danielle cut biopsy, which was done and revealed Invasive moderately differentiated squamous cell carcinoma. He completed Modified Charlene chemoradiation on July 21, completed restaging in August, and was presented to [facility]. It was recommended that he follow up in three months to assess response to determineif he can proceed with watch and wait or should have surgery. 09/24/2021 TB recs Overall clinical assessment of treatment response: Near-complete response Tumor board discussion and recommendation: Good response, near complete response. Recommend follow-up in 3 months again to reassess Discussion: near complete response. Follow-up in 3 months again to assess response CEA 4.11.22 2.2 09.17.21 MRI rectum IMPRESSION: Since 04/09/2021, post treatment primary tumor assessment: Moderate response in the posterior primarily mid rectal mass with residual tumor. Treated T2 dark tumor deposit superior to the dominant mass as described. Persistent EVMI and right mesorectal fascia involvement. mrTRG: Grade 3 - Moderate response Suspicious Mesorectal lymph nodes: No. Suspicious Extramesorectal lymph nodes: No. Posttreatment MRI stage: T3N0 09.17.21 flex sig (IMAGES IN APPT NOTE - BEFORE AND AFTER COMPARISON) Findings: on MARIAJOSE- there was a firm hardness posteriorly in the rectum on flexible sigmoidoscopy, there was a small ulcer and white scar where the tumor used to be, however no mass visualised today Impression: - No specimens collected 05/21/21 TB RECS Other Discussion: Rectal SCC. Modified Charlene for now Aggressive tms RECTAL SCC might need Proctectomy subsequently PT called and expecting a call from [facility]. After initial visit at [facility] likely will get the treatment in [place] and come back for surgery if indicated. 3 s/p Exam under anesthesia with flexible sigmoidoscopy (it is a firm fixed mass in the mid rectum submucosally and retroperitoneally located. This was Danielle-Cut biopsied, frozen section sent toPathology PATHOLOGY FINAL DIAGNOSIS A. Rectum, mass, biopsy: - At least high-grade squamous intraepithelial lesion (HSIL), with focal features suspicious for invasion (see comment). B. Rectum, mass, danielle-cut biopsy #1: - Invasive moderately differentiated squamous cell carcinoma (see comment). C. Rectum, mass, danielle-cut biopsy #2: - Invasive moderately differentiated squamous cell carcinoma (see comment). D. Rectum, mass, danielle-cut biopsy #3: - Invasive moderately differentiated squamous cell carcinoma (see comment). 04/09/21 MRI rectum IMPRESSION: 5 CM ECCENTRIC MID RECTAL MASS WITH EMVI AND TUMOR CONTACTING/ABUTTING THE MRF ITSELF. SINGLY SMALL SUSPICIOUS MESORECTAL LYMPH NODE. Although histologic results were previously inconclusive, presuming this is a rectal adenocarcinoma, the synoptic staging would be as below. Stage: T3d N+ MRF: Involved (tumor margin within 1 mm of MRF Sphincter involvement: No. Suspicious extra mesorectal lymph nodes: None. EMVI: Yes. 04/09/21 CT Chest IMPRESSION: 1. No convincing findings of metastatic disease in the thorax. No significant thoracic lymph node enlargement. 03/21/2021 CT A/P IMPRESSION: Rectal mass consistent with colonoscopy findings. Hepatic and renal cysts 03/20/2021 Colonoscopy Findings: A frond-like/villous partially obstructing large mass was found in the rectum. The mass was non-circumferential. In addition, its diameter measured three mm. No bleeding was present. Biopsies were taken with a cold forceps for histology. A 15 mm polyp was found in the cecum. The polyp was carpet-like. The polyp was removed with a cold snare. Resection and retrieval were complete. The exam was otherwise without abnormality. Impression: - Likely malignant partially obstructing tumor in the rectum. Biopsied. Patient will require a CT scan of the abdomen and pelvis with IV and p.o. contrast - One 15 mm polyp in the cecum,This was biopsied with cold biopsies. . This was a cluster of polyps that likely represent a villous adenoma. They are going to require saline lift technique to be removed.. - The examination was otherwise normal. Pathology FINAL DIAGNOSIS 1. Cecal polyp, biopsy (A) - Tubular adenoma. 2. Rectal mass, biopsy (B) - Submucosa with chronic inflammation, histiocytes, and rare atypical cells, not diagnostic. See comment. COMMENT The mucosa of this biopsy is essentially normal. However, within the submucosa, there is an admixture of lymphocytes, histiocytes, and rare atypical cells of uncertain significance. Immunohistochemical stains reveal that some of the cells appear to stain for cytokeratin AE1/AE3, raising strong consideration that these could be epithelial in nature. An immunostain for CAM5.2 is less definitive. The cells do not stain for S-100 protein, and many of the cells stain for CD68, but these are consistent with nonneoplastic histiocytes. Thus, although this is worrisome for an underlying carcinoma, this biopsy is not felt to be diagnostic. Physical Exam: Ht 167.6 cm (5' 6") Wt 85.7 kg (189 lb) BMI 30.51 kg/m General - awake, alert, no acute distress Abdominal - WNL Anorectal: Perianal skin is intact. No erythema, induration or excoriation. No fissure, fistula or external hemorrhoids. Digital Rectal Exam: Anus: closed Resting tone: NORMAL Squeeze tone: NORMAL Lumber Piler Operator present: Yes, Maricruz Rudolph Proctoscopy: The patient was placed in left lateral position. After digital exam with a lubricated finger, the scope was easily inserted to 30 cm. Findings: see attached provation report Assessment Medical Decision Making: Assessment & Diagnosis: Jai Luna is a 71 year old male with a history of rectal squamous cell carcinoma s/p treatmenthere for follow up Data Reviewed: Tests & Documents Reviewed/ordered: Review of prior notes from previous visits and TB discussion Review of Pathology Review of Imaging: CT Abdomen, CT Pelvis, MRI Pelvis, CT Chest Review of Procedures / Tests: Flexible Sigmoidoscopy Assessment by: Care Center Team Additional testing or imaging to be ordered: MRI rectum and TB discussion I have independently interpreted: CT Abdomen, CT Pelvis, MRI Pelvis, CT Chest I have discussed Jai Luna's treatment plan and/or results with himself and his . Treatment plan: proceed with MRI scheduled today await biopsies from flex sig procedure present to [facility] to determine next step in plan of care Risk of morbidity, mortality and/or complications of treatment plan: moderate documented in this encounterSam[facility]07-28-2022 Miscellaneous Notes* Telephone Encounter - Smitha Dawson RN - 09/25/2021 9:14 AM EDT Called and spoke with patient Advised of [facility] recommendations ppears to have good response, but not complete response. recommend follow up in 3 months with repeat MRI and flexi sig appt scheduled today for flex sig, will request add on for MRI documented in this encounterSam[facility]07-20-2022 History of Present illness Narrative* RT Tray(Fran) - 09/17/2021 4:00 PM EDT Radiology Service Progress Note PATIENT NAME: Jai Luna DATE OF SERVICE: September 17, 2021 TIME: 4:50 PM PATIENT IDENTITY VERIFICATION COMPLETED USING TWO (2) IDENTIFIERS: Name and Date of confirmedby patient verbally and Name and Date of confirmed by identification band. FALL SCREENING: Has the patient had 2 falls in the last year or 1 fall with injury or currently using an Ambulatory Assistive Device (Walker, Cane, Wheelchair, Crutches, etc.)? No PATIENT GENDER DATA: Male PATIENT RELEVANT IMPLANT DATA REVIEWED: Yes RADIOLOGY DEPARTMENT: MR; Exam(s) Completed: Body: Rectal PERIPHERAL IV DATA: Site assessment: Clean,Dry and Intact, Site disposition Discontinued SIGNED BY: RT Tray(R) September 17, 2021 4:50 PM * Leona Lee - 09/17/2021 4:00 PM EDT Radiology Service Progress Note DATE OF SERVICE: September 17, 2021 TIME: 4:10 PM PATIENT WEIGHT: 187 LBS PATIENT IDENTITY VERIFICATION COMPLETED USING TWO (2) STANDARD IDENTIFIERS: Name and Date of confirmed by patient verbally and Name and Date of confirmed by identification band. FALL SCREENING: Has the patient had 2 falls in the last year or 1 fall with injury or currently using an Ambulatory Assistive Device (Walker, Cane, Wheelchair, Crutches, etc.)? No PATIENT GENDER DATA: Male ALLERGIES: Reviewed and unchanged CONTRAST ALLERGY: No EXAM: MRI - CONTRAST TYPE: GROUP II IV SITE: Ambulatory: A peripheral IV was started in the Left forearm with a Angio cath: 22 gauge. IV SITE APPEARANCE: Clean,Dry and Intact SIGNATURE: Leona Lee PATIENT NAME: Jai Luna DATE: September 17, 2021 TIME: 4:10 PM documented in this encounterSamar[facility]07-20-2022 History of Present illness Narrative* Ramiro Cheung MD - 09/17/2021 3:00 PM EDT Images from the original note were not included. COLORECTAL SURGERY Follow-up September 14, 2021 Chief complaint: RECTAL SCC HPI: Jai Luna is a 71 year old male originally referred by Dr Oneill for the surgical evaluation ofa rectal mass. Jai underwent a colonoscopy with Dr Oneill on 03.20.21 due to a change in bowel habits. He was found to have a partially obstructing mass in the rectum biopsies of this revealed submucosa with chronic inflammation, histiocytes, and rare atypical cells, not diagnostic. MRI rectum showed T3dN+, CT C/A/P was negative for metastatic disease. CEA has not been done yet. His case was presented to [facility] where it was recommended to proceed with danielle cut biopsy, which was done and revealed Invasive moderately differentiated squamous cell carcinoma. He completed Modified Charlene chemoradiation on July 21, and is here today for restaging. 05/21/21 TB RECS Other Discussion: Rectal SCC. Modified Charlene for now Aggressive tms RECTAL SCC might need Proctectomy subsequently PT called and expecting a call from [facility]. After initial visit at [facility] likely will get the treatment in [place] and come back for surgery if indicated. 3..2021 s/p Exam under anesthesia with flexible sigmoidoscopy (it is a firm fixed mass in the mid rectum submucosally and retroperitoneally located. This was Danielle-Cut biopsied, frozen section sent toPathology PATHOLOGY FINAL DIAGNOSIS A. Rectum, mass, biopsy: - At least high-grade squamous intraepithelial lesion (HSIL), with focal features suspicious for invasion (see comment). B. Rectum, mass, danielle-cut biopsy #1: - Invasive moderately differentiated squamous cell carcinoma (see comment). C. Rectum, mass, danielle-cut biopsy #2: - Invasive moderately differentiated squamous cell carcinoma (see comment). D. Rectum, mass, danielle-cut biopsy #3: - Invasive moderately differentiated squamous cell carcinoma (see comment). 04/09/21 MRI rectum IMPRESSION: 5 CM ECCENTRIC MID RECTAL MASS WITH EMVI AND TUMOR CONTACTING/ABUTTING THE MRF ITSELF. SINGLY SMALL SUSPICIOUS MESORECTAL LYMPH NODE. Although histologic results were previously inconclusive, presuming this is a rectal adenocarcinoma, the synoptic staging would be as below. Stage: T3d N+ MRF: Involved (tumor margin within 1 mm of MRF Sphincter involvement: No. Suspicious extra mesorectal lymph nodes: None. EMVI: Yes. 04/09/21 CT Chest IMPRESSION: 1. No convincing findings of metastatic disease in the thorax. No significant thoracic lymph node enlargement. 03/21/2021 CT A/P IMPRESSION: Rectal mass consistent with colonoscopy findings. Hepatic and renal cysts 03/20/2021 Colonoscopy Findings: A frond-like/villous partially obstructing large mass was found in the rectum. The mass was non-circumferential. In addition, its diameter measured three mm. No bleeding was present. Biopsies were taken with a cold forceps for histology. A 15 mm polyp was found in the cecum. The polyp was carpet-like. The polyp was removed with a cold snare. Resection and retrieval were complete. The exam was otherwise without abnormality. Impression: - Likely malignant partially obstructing tumor in the rectum. Biopsied. Patient will require a CT scan of the abdomen and pelvis with IV and p.o. contrast - One 15 mm polyp in the cecum,This was biopsied with cold biopsies. . This was a cluster of polyps that likely represent a villous adenoma. They are going to require saline lift technique to be removed.. - The examination was otherwise normal. Pathology FINAL DIAGNOSIS 1. Cecal polyp, biopsy (A) - Tubular adenoma. 2. Rectal mass, biopsy (B) - Submucosa with chronic inflammation, histiocytes, and rare atypical cells, not diagnostic. See comment. COMMENT The mucosa of this biopsy is essentially normal. However, within the submucosa, there is an admixture of lymphocytes, histiocytes, and rare atypical cells of uncertain significance. Immunohistochemical stains reveal that some of the cells appear to stain for cytokeratin AE1/AE3, raising strong consideration that these could be epithelial in nature. An immunostain for CAM5.2 is less definitive. The cells do not stain for S-100 protein, and many of the cells stain for CD68, but these are consistent with nonneoplastic histiocytes. Thus, although this is worrisome for an underlying carcinoma, this biopsy is not felt to be diagnostic. Physical Exam: Ht 167.6 cm (5' 6") Wt 84.8 kg (187 lb) BMI 30.18 kg/m General - awake, alert, no acute distress Abdominal - normal Anorectal: Perianal skin is intact. No erythema, induration or excoriation. No fissure, fistula or external hemorrhoids. on MARIAJOSE- there was a firm hardness posteriorly in the rectum on flexible sigmoidoscopy, there was a small ulcer and white scar where the tumor used to be, however no mass visualised today Comparison of images: BEFORE: Today: Assessment Medical Decision Making: Assessment & Diagnosis: Jai Luna is a 71 year old male who had rectal SCC treated with CASING WRINGER OPERATOR (charlene protocol). He completed in july 21. Flexible sigmoidoscopy shows an ulcer and no mass. He is for MRI scan today. He will be discussed in Tumor board. Data Reviewed: Tests & Documents Reviewed/ordered: Review of Pathology Review of Imaging: MRI Pelvis Review of Labs: . I have independently interpreted: MRI Pelvis I have discussed Jai Luna's treatment plan and/or results with Mr Luna. Treatment plan: MRI scan Discuss in Tumour board for final recommendations and treatment documented in this encounterSam[facility]07-01-2022 History of Present illness Narrative* Marisela Rome MD, MD - 08/29/2021 8:57 AM EDT AMBULATORY TELEPHONE VISIT Jai M Jeremy has consented to this telephone encounter. Persons Present: patient Chief Complaint/Reason: Five week follow-up after radiation treatment. 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 He is doing well overall. Rectal pain resolved completely. He reports that skin in the perianal area is almost all healed. He has mucosal discharge in the rectum and has bowel movements 2-3 times daily with mixed loose and small caliber stool. Data Reviewed: None. Assessment: He is recovering well from acute radiation treatment effects. Plan: He is scheduled to have MRI rectum on 09/17/21 and then to see Dr. Cheung. Total Time Spent: 5 minutes Marisela Rome MD documented in this encounterSam[facility]05-23-2022 Nurse Note* Flavia Bernabe RN - 07/21/2021 2:14 PM EDT Written discharge instructions given and reviewed with patient. Patient verbalizes understanding. Encouraged to call with any questions or concerns. Instruction for 4 week phone call follow up appointment given per Dr. Rome. documented in this encounterSamaritan [facility]05-23-2022 History of Present illness Narrative* Marisela Rome MD, MD - 07/21/2021 12:00 AM EDT JAI LUNA [id number] : 1950 07/21/[address] 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 DELIVERED DOSE: 5400 cGy in 30 fractions treating to the 98.2% isodose line with 10 MV and 3 vmat nava. Concurrent chemotherapy with Mitomycin and Xeloda. ELAPSED TIME: 42 days. TOLERANCE/ RESPONSE: He has rectal pain especially with sitting position and bowel movements. Pain is controlled with Anusol sup and Naprosyn. Perianal skin with moderate erythema. No skin breakdown.External hemorrhoids. REMARKS: He tolerated radiation treatment well overall. I understand that he will have MRI and a follow-up appointment with Dr. Cheung at the end of July. Four week follow-up with me. Staff Physician MARISELA ROME M.D. / 23:08 PM Electronically Signed cc: Helen Cheung documented in this encounterSamaritan [facility]05-20-2022 Miscellaneous Notes* Telephone Encounter - Linda Gregory Pss - 07/18/2021 1:11 PM EDT Patient will call to schedule MRI and Dr. Cheung follow up on same day. documented in this encounterSamaritan [facility]05-20-2022 History of Present illness Narrative* Alexia Rao APRN.SECURITY SYSTEM INSTALLER - 07/18/2021 12:31 PM EDT Chief Complaint Patient presents with: Established Patient HPI: Jai Luna is a 71 year old male who presents here today for follow up rectal cancer. Per Dr. Lakhani's previous note: H/o acoustic neuroma, cervical radiculopathy, CAD (CABG 1994), hypertension, dyslipidemia, BPH (TURP 2016) and bilateral carotid artery stenosis. He noticed a change in his bowel habits manifested as thinner stools. He is also developing rectal pain when defecating. He underwent a colonoscopy on 03/20/2021. There was a partially obstructing mass in the rectum observed. Biopsies revealed submucosa with chronic inflammation, histiocytes and rare atypical cells. It was nondiagnostic otherwise. An MRI demonstrated a 5 cm mid rectal mass with extramural vascular invasion and tumor contacting/abutting the mesorectal fossa with a single small suspicious mesorectal lymph node. The tumor was 8 cm from the anal verge. It was classified as cT3d N+. CT of chest, abdomen pelvis was negative for metastatic disease. Baseline CEA was 1.4 ng/mL. Patient underwent an exam under anesthesia with 3 biopsy on 05/06/2021. Pathology demonstrated invasive moderately differentiated squamous cell carcinoma. His case was presented at tumor board and management per anal squamous cell carcinoma recommended with Charlene regimen followed by proctectomy. He has been seen by radiation oncology and is already received capecitabine. Per initial evaluation here: "His appetite has been normal. His stool is still ribbon like. No bleeding. He gets frequent constipation but it can be relieved with Dulcolax." Current therapy: 1) concurrent chemotherapy and radiation with capecitabine and Mitomycin-C. The intense pain from pressure was taken care of with hydrocortisone suppository. I started witch vickie this morning. My pain is now a one." Appetite:"Great but I'm not eating regular food." Energy level:"I get tired quick." Denies fevers. Mouth:denies sores Resp:denies cough or sob Cardiac:denies chest pain/palpitations GI:denies abd pain, n/v, moving bowels regularly-soft, "not diarrhea but was painful until I started using witch vickie this morning" :denies dysuria/hematuria Extrem:denies pain Neuro:denies symptoms of neuropathy Skin:denies rash/skin dryness/cracking/erythema to palms or soles of feet Heme:bleeding with BM's "Not with every BM." The ROS is otherwise negative. Past medical history, appointments, medications, allergies reviewed. No changes. EXAM: BP 131/72 Pulse (!) 52 Temp 36.2 C (97.1 F) (Temporal) Wt 86 kg (189 lb 8 oz) SpO2 97% BMI 30.45 kg/m APPEARANCE Well appearing, alert, in no acute distress, well-hydrated, well nourished. HEART RRR with normal S1 and S2, no murmurs LUNG clear to auscultation LYMPH NODES No cervical lymphadenopathy, No supraclavicular lymphadenopathy and No axillary lymphadenopathy. ABDOMEN bowel sounds normoactive, soft, non-tender, non-distended, without organomegaly or palpablemasses EXTREMITIES No edema NEURO Awake, alert and oriented x 3, Normal gait and No involuntary motions. SKIN Skin color, texture, turgor normal, no suspicious rashes or lesions, no erythema/cracking/peeling to palms LABS: Component Latest Ref Rng & Units 06/30/2021 07/07/2021 07/14/2021 WBC 3.70 - 11.00 k/uL 3.26 (L) 4.06 3.18 (L) RBC 4.20 - 6.00 m/uL 4.05 (L) 4.01 (L) 3.84 (L) Hemoglobin 13.0 - 17.0 g/dL 12.9 (L) 13.1 12.5 (L) Hematocrit 39.0 - 51.0 % 38.9 (L) 38.0 (L) 37.0 (L) MCV 80.0 - 100.0 fL 96.0 94.8 96.4 MCH 26.0 - 34.0 pg 31.9 32.7 32.6 MCHC 30.5 - 36.0 g/dL 33.2 34.5 33.8 RDW-CV 11.5 - 15.0 % 13.9 14.9 16.3 (H) Platelet Count 150 - 400 k/uL 107 (L) 112 (L) 131 (L) MPV 9.0 - 12.7 fL 9.2 9.1 8.4 (L) Neut% % 58.5 67.8 65.5 Abs Neut (ANC) 1.45 - 7.50 k/uL 1.91 2.75 2.08 Lymph% % 16.0 11.6 11.9 Abs Lymph 1.00 - 4.00 k/uL 0.52 (L) 0.47 (L) 0.38 (L) Overton% % 20.9 17.7 17.3 Abs Overton <0.87 k/uL 0.68 0.72 0.55 Eosin% % 3.1 1.7 4.7 Abs Eosin <0.46 k/uL 0.10 0.07 0.15 Baso% % 0.6 0.5 0.3 Abs Baso <0.11 k/uL <0.03 <0.03 <0.03 Immature Gran % % 0.9 0.7 0.3 IMMATURE GRANS (ABS) <0.10 k/uL 0.03 0.03 <0.03 NRBC /100 WBC 0.0 0.0 0.0 Absolute nRBC <0.01 k/uL <0.01 <0.01 <0.01 DTYPE Auto Auto Auto Component Latest Ref Rng & Units 06/30/2021 07/07/2021 07/14/2021 Protein, Total 6.3 - 8.0 g/dL 6.5 6.8 6.7 Albumin 3.9 - 4.9 g/dL 4.1 4.3 4.3 Calcium 8.5 - 10.2 mg/dL 8.4 (L) 8.7 8.7 Bilirubin, Total 0.2 - 1.3 mg/dL 0.3 0.3 0.4 Alkaline Phosphatase 38 - 113 U/L 91 86 89 AST 14 - 40 U/L 28 35 39 ALT 10 - 54 U/L 22 30 32 Glucose 74 - 99 mg/dL 103 (H) 97 108 (H) BUN 9 - 24 mg/dL 11 12 11 Creatinine 0.73 - 1.22 mg/dL 0.82 0.88 0.86 Sodium 136 - 144 mmol/L 139 139 139 Potassium 3.7 - 5.1 mmol/L 4.1 3.9 4.2 Chloride 97 - 105 mmol/L 107 (H) 105 104 CO2 22 - 30 mmol/L 25 26 24 Anion Gap 9 - 18 mmol/L 7 (L) 8 (L) 11 eGFR >=60 mL/min/1.73m 94 92 93 Component Latest Ref Rng & Units 06/30/2021 07/07/2021 07/14/2021 Magnesium 1.7 - 2.3 mg/dL 2.1 2.1 2.1 ASSESSMENT/PLAN: 1. Rectal malignant neoplasm (HCC) - ICD9: 154.1, ICD10: C20 (primary diagnosis) 2. 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 - Overall tolerating xeloda/radiation fairly well. - Reviewed labs with pt. - Continue xeloda at current dose as ordered until completes radiation. - Follow up with Dr. Rome as scheduled. - Needs follow up MRI rectum/eval by Dr. Cheung (colorectal surg-main) end of July. - Pt. aware to call office with any questions/concerns. The patient indicates understanding of these issues and agrees with the plan. Discussed case with Dr. Lakhani who agrees with treatment plan. All documentation from previous visit of 07/04/21-Dr. Lakhani/myself was copied and pasted, documentation has been reviewed and edited as necessary for today's visit. 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 COURSE: definitive and concurrent chemotherapy (Mitomycin and Xeloda) AREA TREATED: Pelvis CURRENT DOSE: 4680 cGy in 26 fx PLANNED DOSE: 5400 cGy in 30 fx SUBJECTIVE: He has rectal pain especially with sitting position and bowel movements. Pain is not well controlled with Tylenol. EXAM: KPS: 80 General Appearance: Alert and oriented. No acute distress. Perianal skin with moderate erythema. No skin breakdown. External hemorrhoids. IMAGING/LAB RESULTS: CBC yesterday reviewed. Treatment chart checked: Yes Patient treatment site reviewed and verified:Yes CBCTs reviewed and current:Yes Medications started: Anusol supp. Naprosyn. (He has allergies to Codeine) ASSESSMENT/PLAN: Clinically stable. Toxicity within expected parameters. Continue radiation treatment as planned. Marisela Rome MD documented in this encounterSamaritan [facility] Center05-17-2022 Nurse Note* Krys Stafford RN - 07/15/2021 2:08 PM EDT Radiation Therapy - Nursing Note (OTV) PATIENT NAME: Jai Luna PATIENT July 15, 2021 [facility] FACILITY/LOCATION: [place] NURSING NOTE TYPE: pelvis Subjective Data See pain assessment Additional Data Do you want to see a Casing Crew Pusher? No Status: Patient is male Stress Scale: On a scale of 0 to 10, what number best describes how much distress you have experienced in the past week?(0 being no distress and 10 being extreme distress) 4 Social work notified: Pt denied need to see long term care social worker at this time. Nursing Assessment Fatigue: increased fatigue over baseline but not altering normal activities Appetite: good Nutritional Intake: Regular oral intake. Weight Gain/Loss: No Ambulatory weight history: Last 6 Encounter Wt Readings: Date: Wt: 07/08/2021 86.6 kg (191 lb) 07/04/2021 87.5 kg (193 lb) 07/01/2021 87.1 kg (192 lb) 06/24/2021 87.3 kg (192 lb 8 oz) 06/18/2021 89.4 kg (197 lb) 06/06/2021 89.4 kg (197 lb) Nausea:None Vomiting: None Bowel Function: normal bowel movements Erythema/Hyperpigmentation:severe Desquamation:moist desquamation Rash:none Skin Care: Aquaphor Skin Sensation: mild itching and severe burning Focused Assessment pelvis-pt reports severe pain with small soft BM SIGNED by: Krys Stafford RN documented in this encounterSam[facility]-12-2022 Miscellaneous Notes* Telephone Encounter - Krys Stafford RN - 07/10/2021 1:[address] Rome reviewed results. Pt advised to hot die picker Cipro a t Pharmacy. Pt states that he has not been using Zofran and has been advised to avoid using it during treatement with Cipro due to a possible drug interaction. Pt verbalized understanding and will hot die picker medication today. Pt uses [facility] in [place]. * Telephone Encounter - Flavia Bernabe RN - 07/09/2021 1:49 PM EDT See prior date 07/07/21 re: dysuria Pt denied dysuria yesterday when here for OTV. today he is c/o of burning again. Denies fever of hematuria. Dr Rome notified and U/A ordered. Escorted pt to lab to obtain specimen and told him we would give results tomorrow when here. He is agreeable to plan. 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 COURSE: definitive and concurrent chemotherapy (Mitomycin and Xeloda) AREA TREATED: Pelvis CURRENT DOSE: 3780 cGy in 21 fx PLANNED DOSE: 5400 cGy in 30 fx SUBJECTIVE: He had diarrhea last night after taking Senokot and Miralax for constipation. He is doing well today without any specific new complaints. EXAM: KPS: 90 General Appearance: Alert and oriented. No acute distress. IMAGING/LAB RESULTS: CBC yesterday reviewed. Treatment chart checked: Yes Patient treatment site reviewed and verified:Yes CBCTs reviewed and current:Yes Medications started: None ASSESSMENT/PLAN: Clinically stable. Toxicity within expected parameters. Continue radiation treatment as planned. Marisela Rome MD documented in this encounterSamaritan [facility]05-10-2022 Nurse Note* Flavia Bernabe RN - 07/08/2021 1:38 PM EDT Radiation Therapy - Nursing Note (OTV) PATIENT NAME: Jai Luna PATIENT July 08, 2021 [facility] FACILITY/LOCATION: [place] NURSING NOTE TYPE: RECTAL Subjective Data SEE pain assessment Additional Data Do you want to see a Casing Crew Pusher? No Status: Patient is male Stress Scale: On a scale of 0 to 10, what number best describes how much distress you have experienced in the past week?(0 being no distress and 10 being extreme distress) 0 Social work notified: no Nursing Assessment Fatigue: increased fatigue over baseline but not altering normal activities Appetite: good Nutritional Intake: Regular oral intake. Weight Gain/Loss: No Ambulatory weight history: Last 6 Encounter Wt Readings: Date: Wt: 07/04/2021 87.5 kg (193 lb) 07/01/2021 87.1 kg (192 lb) 06/24/2021 87.3 kg (192 lb 8 oz) 06/18/2021 89.4 kg (197 lb) 06/06/2021 89.4 kg (197 lb) 06/02/2021 89.8 kg (198 lb) Nausea:None Vomiting: None Bowel Function: had diarrhea yesterday but was due to miralax and senakot. Erythema/Hyperpigmentation:unsure Desquamation:none Rash:none Skin Care: Aquaphor Skin Sensation: moderate burning Focused Assessment RECTAL: Dysuria: none today, but did yesterday, Urinary urgency/frequency: None, Urinary retention:None, Pelvic pain none, Rectal pain moderate pain: pain or analgesics interfering with function, but not interfering with activities of daily living, Rectal bleeding scant from hemorrhoids and Bowel movements diarrhea just yesterday SIGNED by: Flavia Bernabe RN documented in this encounterSamaritan [facility]05-09-2022 History of Present illness Narrative* Enid Garsia RN - 07/07/2021 1:04 PM EDT Patient is here for PICC flush/blood draw. Location: Right arm Flush with 5cc's Normal Saline. Blood Return: Good. 10 cc's blood aspirated and discarded. Blood drawn for CBC and BMP. Flushed with: 20 ml Normal Saline PICC removed per orders and [facility] protocol with tip intact. Tolerated well without issue documented in this encounterSamaritan [facility]05-09-2022 History of Present illness Narrative* Enid Garsia RN - 07/07/2021 10:52 AM EDT . documented in this encounterSamaritan [facility]05-09-2022 Miscellaneous Notes* Telephone Encounter - Rabia Cash - 07/07/2021 10:48 AM EDT Appointments adjusted/corrected as needed. Rabia Cash * Telephone Encounter - Helen Lakhani DO - 07/07/2021 9:48 AM EDT He does not need mitomycin today. Still needs lab work. Okay to d/c PICC once labs drawn. Continue capecitabine Wednesday through Wednesday all days of radiation treatment. Follow up as scheduled thereafter. Helen Lakhani DO * Telephone Encounter - Alexia Rao APRN.CNP - 07/07/2021 8:31 AM EDT I can not sign those orders. Alexia Rao APRN.CHELSIE * Telephone Encounter - Eris Cherry RN - 07/07/2021 8:28 AM EDT Randall Hale has mutamycin tx today but orders are not signed. Thank you documented in this encounterSamaritan [facility]05-06-2022 History of Present illness Narrative* Alexia Rao APRN.CHELSIE - 07/04/2021 12:36 PM EDT Chief Complaint Patient presents with: Established Patient HPI: Jai Luna is a 71 year old male who presents here today for follow up rectal cancer. Per Dr. Lakhani's previous note: H/o acoustic neuroma, cervical radiculopathy, CAD (CABG 1994), hypertension, dyslipidemia, BPH (TURP 2016) and bilateral carotid artery stenosis. He noticed a change in his bowel habits manifested as thinner stools. He is also developing rectal pain when defecating. He underwent a colonoscopy on 03/20/2021. There was a partially obstructing mass in the rectum observed. Biopsies revealed submucosa with chronic inflammation, histiocytes and rare atypical cells. It was nondiagnostic otherwise. An MRI demonstrated a 5 cm mid rectal mass with extramural vascular invasion and tumor contacting/abutting the mesorectal fossa with a single small suspicious mesorectal lymph node. The tumor was 8 cm from the anal verge. It was classified as cT3d N+. CT of chest, abdomen pelvis was negative for metastatic disease. Baseline CEA was 1.4 ng/mL. Patient underwent an exam under anesthesia with 3 biopsy on 05/06/2021. Pathology demonstrated invasive moderately differentiated squamous cell carcinoma. His case was presented at tumor board and management per anal squamous cell carcinoma recommended with Charlene regimen followed by proctectomy. He has been seen by radiation oncology and is already received capecitabine. Per initial evaluation here: "His appetite has been normal. His stool is still ribbon like. No bleeding. He gets frequent constipation but it can be relieved with Dulcolax." Current therapy: 1) concurrent chemotherapy and radiation with capecitabine and Mitomycin-C. No BM in 3 days. He has been taking metamucil not miralax. I had some bleeding with all of the straining. Appetite:"Great." Wt. down 4# since 06/18/21 Energy level:"I get tired easy." Denies fevers. Mouth:denies sores Resp:denies cough or sob Cardiac:denies chest pain/palpitations GI:denies abd pain, n/v, +constipation recently :denies dysuria/hematuria Extrem:denies pain Neuro:denies symptoms of neuropathy Skin:denies rash/skin dryness/cracking/erythema Heme:bleeding as above The ROS is otherwise negative. Past medical history, appointments, medications, allergies reviewed. No changes. EXAM: BP 111/64 Pulse (!) 52 Temp 36.3 C (97.4 F) Wt 87.5 kg (193 lb) SpO2 99% BMI 31.02 kg/m APPEARANCE Well appearing, alert, in no acute distress, well-hydrated, well nourished. HEART RRR with normal S1 and S2, no murmurs LUNG clear to auscultation LYMPH NODES No cervical lymphadenopathy, No supraclavicular lymphadenopathy and No axillary lymphadenopathy. ABDOMEN bowel sounds normoactive, soft, non-tender, non-distended, without organomegaly or palpablemasses EXTREMITIES No edema NEURO Awake, alert and oriented x 3, Normal gait and No involuntary motions. SKIN Skin color, texture, turgor normal, no suspicious rashes or lesions LABS: Component Latest Ref Rng & Units 06/16/2021 06/23/2021 06/30/2021 WBC 3.70 - 11.00 k/uL 4.67 3.65 (L) 3.26 (L) RBC 4.20 - 6.00 m/uL 4.08 (L) 4.08 (L) 4.05 (L) Hemoglobin 13.0 - 17.0 g/dL 12.9 (L) 13.0 12.9 (L) Hematocrit 39.0 - 51.0 % 38.4 (L) 39.1 38.9 (L) MCV 80.0 - 100.0 fL 94.1 95.8 96.0 MCH 26.0 - 34.0 pg 31.6 31.9 31.9 MCHC 30.5 - 36.0 g/dL 33.6 33.2 33.2 RDW-CV 11.5 - 15.0 % 12.9 13.2 13.9 Platelet Count 150 - 400 k/uL 184 169 107 (L) MPV 9.0 - 12.7 fL 9.9 9.7 9.2 Neut% % 63.7 53.6 58.5 Abs Neut (ANC) 1.45 - 7.50 k/uL 2.97 1.96 1.91 Lymph% % 23.8 24.7 16.0 Abs Lymph 1.00 - 4.00 k/uL 1.11 0.90 (L) 0.52 (L) Overton% % 8.1 18.4 20.9 Abs Overton <0.87 k/uL 0.38 0.67 0.68 Eosin% % 3.2 2.7 3.1 Abs Eosin <0.46 k/uL 0.15 0.10 0.10 Baso% % 0.6 0.3 0.6 Abs Baso <0.11 k/uL 0.03 <0.03 <0.03 Immature Gran % % 0.6 0.3 0.9 IMMATURE GRANS (ABS) <0.10 k/uL 0.03 <0.03 0.03 NRBC /100 WBC 0.0 0.0 0.0 Absolute nRBC <0.01 k/uL <0.01 <0.01 <0.01 DTYPE Auto Auto Auto Component Latest Ref Rng & Units 06/16/2021 06/23/2021 06/30/2021 Protein, Total 6.3 - 8.0 g/dL 6.4 6.5 6.5 Albumin 3.9 - 4.9 g/dL 3.9 4.0 4.1 Calcium 8.5 - 10.2 mg/dL 8.4 (L) 8.6 8.4 (L) Bilirubin, Total 0.2 - 1.3 mg/dL 0.6 0.3 0.3 Alkaline Phosphatase 38 - 113 U/L 95 89 91 AST 14 - 40 U/L 19 25 28 ALT 10 - 54 U/L 12 18 22 Glucose 74 - 99 mg/dL 97 83 103 (H) BUN 9 - 24 mg/dL 13 13 11 Creatinine 0.73 - 1.22 mg/dL 0.74 0.81 0.82 Sodium 136 - 144 mmol/L 137 141 139 Potassium 3.7 - 5.1 mmol/L 3.8 3.8 4.1 Chloride 97 - 105 mmol/L 105 105 107 (H) CO2 22 - 30 mmol/L 25 25 25 Anion Gap 9 - 18 mmol/L 7 (L) 11 7 (L) eGFR >=60 mL/min/1.73m 97 94 94 Component Latest Ref Rng & Units 06/23/2021 06/30/2021 Magnesium 1.7 - 2.3 mg/dL 2.1 2.1 ASSESSMENT/PLAN: 1. Rectal malignant neoplasm (HCC) - ICD9: 154.1, ICD10: C20 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 - Overall tolerating xeloda/radiation except for constipation. - Reviewed labs with pt. - Continue xeloda at current dose. - Follow up with Dr. Rome as scheduled. - Discussed how to take miralax/stool softners. - Follow up as scheduled. - Pt. aware to call office with any questions/concerns. The patient indicates understanding of these issues and agrees with the plan. All documentation from previous visit of 06/18/21-Dr. Lakhani was copied and pasted, documentation hasbeen reviewed and edited as necessary for today's visit. Alexia Rao APRN.CHELSIE documented in this encounterSamaritan [facility]05-03-2022 Miscellaneous Notes* Telephone Encounter - Helen Lakhani DO - 07/01/2021 4:18 PM EDT Julio C Arcos, Yes, he'll need full [address] Lakhani * Telephone Encounter - Josselyn Stanford RP - 07/01/2021 3:32 PM EDT Queuing up orders for capecitabine needed to complete chemoRT - initial RXs were only sent over for5 weeks of chemoRT. Per recent Rad Onc notes, it is noted that pt will have 30 fx (6 weeks). Refill is queued up for the remaining 2 weeks (10 days of therapy) pt will need to complete the 30 fx - if the plan is correct, please review and sign pended orders to come to [facility]. If patient is only going to complete 5 weeks of chemoRT, please let us know and we can use RXs already on file. Thank you. Josselyn Stanford, PharmD Clinical Pharmacist, Oncology [facility] P: , F: Pool: P [facility] Pool #: [id number] documented in this encounterSamaritan North [facility] Center05-03-2022 Nurse Note* Krys Stafford RN - 07/01/2021 1:47 PM EDT Radiation Therapy - Nursing Note (OTV) PATIENT NAME: Jai Luna PATIENT July 01, 2021 [facility] FACILITY/LOCATION: [place] NURSING NOTE TYPE: RECTAL Subjective Data See pain assessment Additional Data Do you want to see a Casing Crew Pusher? No Status: Patient is male Stress Scale: On a scale of 0 to 10, what number best describes how much distress you have experienced in the past week?(0 being no distress and 10 being extreme distress) 4 Social work notified: Pt denied need to see long term care social worker at this time. Nursing Assessment Fatigue: increased fatigue over baseline but not altering normal activities Appetite: good Nutritional Intake: Regular oral intake. Weight Gain/Loss: No Ambulatory weight history: Last 6 Encounter Wt Readings: Date: Wt: 07/01/2021 87.1 kg (192 lb) 06/24/2021 87.3 kg (192 lb 8 oz) 06/18/2021 89.4 kg (197 lb) 06/06/2021 89.4 kg (197 lb) 06/02/2021 89.8 kg (198 lb) 05/29/2021 89.4 kg (197 lb) Nausea:None Vomiting: None Bowel Function: loose stools to aid in passing stool managed with Miralax Erythema/Hyperpigmentation:severe Desquamation:moist desquamation Rash:none Skin Care: Aquaphor Skin Sensation: none itching and severe burning Focused Assessment RECTAL: Dysuria: sometimes difficult to start flow, improving, Urinary urgency/frequency: None and Rectal pain severe pain: pain or analgesics severely interfering with activities of daily living SIGNED by: Krys Stafford RN documented in this encounterSamaritan [facility]05-03-2022 History of Present illness Narrative* Marisela Rome MD, - 07/01/2021 1:43 PM EDT Radiation Oncology - On Treatment Review (OTR) Note PATIENT NAME: Jai Luna PATIENT DIAGNOSIS: Clinical stage IIIA, 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 COURSE: definitive and concurrent chemotherapy (Mitomycin and Xeloda) AREA TREATED: Pelvis CURRENT DOSE: 2880 cGy in 16 fx PLANNED DOSE: 5400 cGy in 30 fx SUBJECTIVE: He has pain in the perianal area controlled well with Tylenol. EXAM: KPS: 90 General Appearance: Alert and oriented. No acute distress. IMAGING/LAB RESULTS: CBC yesterday reviewed. Platelet count 107K. Treatment chart checked: Yes Patient treatment site reviewed and verified:Yes CBCTs reviewed and current:Yes Medications started: None ASSESSMENT/PLAN: Clinically stable. Toxicity within expected parameters. Continue radiation treatment as planned. Marisela Rome MD documented in this encounterSamaritan [facility]05-03-2022 History of Present illness Narrative* Graciela Malin (Drill Press Operator) - 07/01/2021 12:11 PM EDT [facility] Ref[facility] Assessment Medication(s): Capecitabine x 2 Therapy continues to be appropriate for disease, patient response, and medical condition. Verification of therapeutic benefit and effectiveness with current therapy. Adverse events, barriers in adherence, and side effects assessed and addressed. Will proceed with refill with no changes. [facility] Visit Assessment - Hematology/Oncology: Assessment to use: Refill Non-Clinical Assessment: Patient confirmed: Yes Med/dose confirmed: Yes Supplies needed: N/A Missed doses: No Estimated days supply on hand: 3 Copay amount: 0 Payment confirmed: Yes Address confirmed: Yes Delivery method: FedEx Delivery address: [address] [place] [id number] Delivery date: 07/03/2021 Patient has questions: No Additional questions, comments, concerns: Patient stated he just started week 4 this week 06/30. Hestated to his understanding he will be doing 6 weeks but MD had not decided on it yet. Will set up remainder of what we have for week 5 and will have [facility] reach out to MD office to confirm if it will go on for 6 weeks. Vaccination Assessment: Date of influenza vaccination reminder: 06/03/2021 Date of most recent vaccination assessment: 06/03/2021 Treatment Plan Information: Treatment Plan Information: Diagnosis: Rectal squamous cell carcinoma - stage III Previous treatment(s): surgery New treatment regimen: Capecitabine + Mitomycin with RT Starting Dose/Titration: - Dosing is ~825 mg/m2 x 2.04m2 = 1683mg rounded to 1650mg (1% change) - Take 1650mg (one 150mg and three 500mg tabs) by mouth twice daily with food. Administration: Take with water within 30 minutes after a meal. Swallow tablets whole. Side Effects/Warnings: include but are not limited to bone marrow suppression, cardiotoxicity, diarrhea, jbmy-fuh-bfaq syndrome, hepatotoxicity Monitoring: - CBC with differential, hepatic function, and renal function should be monitored. - Monitor INR closely if receiving concomitant warfarin. - Monitor for diarrhea, dehydration, hand-foot syndrome, Wynn-Bharath syndrome, toxic epidermal necrolysis, stomatitis, and cardiotoxicity. - Monitor adherence. Drug-Drug Interactions: noted no drug interactions Baseline: 04/30/21 - CrCl 91 ml/min - AST/ALT are WNL - WBC 6.31, Hgb 14.2, plt 216, ANC not completed - Hep B screening recommended Vaccination recommendations: COVID 19, Shingrix, Pneumovax Estimated Start Date Info: 06/09/21 Estimated Treatment Duration: 5 weeks Graciela Malin (Drill Press Operator) documented in this encounterSamaritan [facility] Center04-26-2022 Nurse Note* Flavia Beranbe RN - 06/24/2021 2:02 PM EDT Radiation Therapy - Nursing Note (OTV) PATIENT NAME: Jai Luna PATIENT June 24, 2021 [facility] FACILITY/LOCATION: [place] NURSING NOTE TYPE: RECTAL Subjective Data no complaints today Additional Data Do you want to see a Casing Crew Pusher? No Status: Patient is male Stress Scale: On a scale of 0 to 10, what number best describes how much distress you have experienced in the past week?(0 being no distress and 10 being extreme distress) 0 Social work notified: no Nursing Assessment Fatigue: increased fatigue over baseline but not altering normal activities Appetite: good Nutritional Intake: Regular oral intake. and is now doing mostly liquids to help keep stool softer Weight Gain/Loss: No Ambulatory weight history: Last 6 Encounter Wt Readings: Date: Wt: 06/24/2021 87.3 kg (192 lb 8 oz) 06/18/2021 89.4 kg (197 lb) 06/06/2021 89.4 kg (197 lb) 06/02/2021 89.8 kg (198 lb) 05/29/2021 89.4 kg (197 lb) 05/29/2021 88.7 kg (195 lb 9.6 oz) Nausea:None Vomiting: None Bowel Function: constipation difficult to have BM due to tumor has found that liquid diet helps Erythema/Hyperpigmentation:none Desquamation:none Rash:none Skin Care: None Skin Sensation: palms of hands and soles of feet Focused Assessment RECTAL: Dysuria: none and mild symptoms requiring no intervention, Urinary urgency/frequency: None,Urinary retention: None, Pelvic pain none, Rectal pain none, Rectal bleeding mild and much improvedand Bowel movements constipation has found a liquid diet helps with this and takes stool softner did have some low back pain but relates to playing pool.recently SIGNED by: Flavia Bernabe RN documented in this encounterSamaritan [facility] Center04-26-2022 History of Present illness Narrative* Marisela Rome MD, - 06/24/2021 1:44 PM EDT Radiation Oncology - On Treatment Review (OTR) Note PATIENT NAME: Jai Luna PATIENT DIAGNOSIS: Clinical stage IIIA, 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 COURSE: definitive and concurrent chemotherapy (Mitomycin and Xeloda) AREA TREATED: Pelvis CURRENT DOSE: 1980 cGy in 11 fx PLANNED DOSE: 5400 cGy in 30 fx SUBJECTIVE: He is doing well without any specific new complaints. EXAM: KPS: 90 General Appearance: Alert and oriented. No acute distress. IMAGING/LAB RESULTS: CBC yesterday reviewed. Treatment chart checked: Yes Patient treatment site reviewed and verified:Yes CBCTs reviewed and current:Yes Medications started: None ASSESSMENT/PLAN: Clinically stable. Toxicity within expected parameters. Continue radiation treatment as planned. 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 HPI: The patient is a 71-year-old male who has a past medical history significant for acoustic neuroma, cervical radiculopathy, CAD (CABG 1994), hypertension, dyslipidemia, BPH (TURP 2016) and bilateral carotid artery stenosis. He noticed a change in his bowel habits manifested as thinner stools. He is also developing rectal pain when defecating. He underwent a colonoscopy on 03/20/2021. There was a partially obstructing mass in the rectum observed. Biopsies revealed submucosa with chronic inflammation, histiocytes and rare atypical cells. It was nondiagnostic otherwise. An MRI demonstrated a 5 cm mid rectal mass with extramural vascular invasion and tumor contacting/abutting the mesorectal fossa with a single small suspicious mesorectal lymph node. The tumor was 8 cm from the anal verge. It was classified as cT3d N+. CT of chest, abdomen pelvis was negative for metastatic disease. Baseline CEA was 1.4 ng/mL. Patient underwent an exam under anesthesia with 3 biopsy on 05/06/2021. Pathology demonstrated invasive moderately differentiated squamous cell carcinoma. His case was presented at tumor board and management per anal squamous cell carcinoma recommended with Charlene regimen followed by proctectomy. He has been seen by radiation oncology and is already received capecitabine. Per initial evaluation here: "His appetite has been normal. His stool is still ribbon like. No bleeding. He gets frequent constipation but it can be relieved with Dulcolax." Current therapy: 1) concurrent chemotherapy and radiation with capecitabine and Mitomycin-C. Presents for ongoing oncologic management. Day 10, cycle #1. Interim history: He is tolerating therapy very well thus far. He is consistently taking capecitabine 1650 mg twice daily Wednesday through Wednesday. He has not had nausea or symptoms of stomatitis. No diarrhea. In fact hestill having a difficult time passing stools because of the tumor. He has some rectal pain when sitting and not trying to defecate and that has not changed much but bleeding stopped about 4 days ago.His appetite is good. He has had no symptoms of hand-foot skin toxicity. He has not had fever. PMH, medications and allergies personally reviewed by me today. Any changes documented in appropriate section. ROS: Constitutional: Denies episodes of fever and night sweats. Not significantly fatigued. Normal appetite. Neuro: Denies MCNEAL, vertigo, dizziness and imbalance. Denies symptoms of neuropathy. HEENT: No recent change in voice, vision or hearing. Resp: Denies cough, wheeze and hemoptysis. Denies shortness of breath at rest. Denies BANKS. CVS: Denies exertional chest pain, PND, orthopnea and LE edema. GI: See above. : Denies dysuria or gross hematuria. No symptoms of bladder outlet obstruction. Endo: Denies hot flashes. Denies polyuria and polydipsia. Denies heat and cold intolerance. Musculoskeletal: Denies bone, back, joint and muscular pain. Derm: Denies rash. Denies jaundice and diffuse pruritis. Heme: Denies unusual bleeding and unexplained bruising. Psych: Normal mood. PHYSICAL EXAM: Vitals: Blood pressure 150/67, pulse 60, temperature 36.4 C (97.5 F), weight 89.4 kg (197 lb), [id number] %. Well-appearing and in no acute distress. EYES: Sclerae are anicteric bilaterally. LYMPHATIC: There is no palpable cervical, supraclavicular, axillary or inguinal adenopathy. RESPIRATORY: Inspiratory breath sounds are of normal intensity in all nava. No rales, wheezes or rhonchi. CARDIOVASCULAR: Rhythm is regular. Normal intensity S1/S2. There is no gallop or murmur. ABDOMEN: The abdomen is nondistended. No organomegaly. No tenderness. Extremities: No swelling or edema. SKIN: No jaundice or rash. No petechiae. NEUROLOGIC: senior hr manager II-XII are grossly intact. No focal motor weakness. LABS: Component Latest Ref Rng & Units 06/16/2021 WBC 3.70 - 11.00 k/uL 4.67 RBC 4.20 - 6.00 m/uL 4.08 (L) Hemoglobin 13.0 - 17.0 g/dL 12.9 (L) Hematocrit 39.0 - 51.0 % 38.4 (L) MCV 80.0 - 100.0 fL 94.1 MCH 26.0 - 34.0 pg 31.6 MCHC 30.5 - 36.0 g/dL 33.6 RDW-CV 11.5 - 15.0 % 12.9 Platelet Count 150 - 400 k/uL 184 MPV 9.0 - 12.7 fL 9.9 Neut% % 63.7 Abs Neut (ANC) 1.45 - 7.50 k/uL 2.97 Lymph% % 23.8 Abs Lymph 1.00 - 4.00 k/uL 1.11 Overton% % 8.1 Abs Overton <0.87 k/uL 0.38 Eosin% % 3.2 Abs Eosin <0.46 k/uL 0.15 Baso% % 0.6 Abs Baso <0.11 k/uL 0.03 Immature Gran % % 0.6 IMMATURE GRANS (ABS) <0.10 k/uL 0.03 NRBC /100 WBC 0.0 Absolute nRBC <0.01 k/uL <0.01 DTYPE Auto Protein, Total 6.3 - 8.0 g/dL 6.4 Albumin 3.9 - 4.9 g/dL 3.9 Calcium 8.5 - 10.2 mg/dL 8.4 (L) Bilirubin, Total 0.2 - 1.3 mg/dL 0.6 Alkaline Phosphatase 38 - 113 U/L 95 AST 14 - 40 U/L 19 ALT 10 - 54 U/L 12 Glucose 74 - 99 mg/dL 97 BUN 9 - 24 mg/dL 13 Creatinine 0.73 - 1.22 mg/dL 0.74 Sodium 136 - 144 mmol/L 137 Potassium 3.7 - 5.1 mmol/L 3.8 Chloride 97 - 105 mmol/L 105 CO2 22 - 30 mmol/L 25 Anion Gap 9 - 18 mmol/L 7 (L) eGFR >=60 mL/min/1.73m 97 Magnesium 1.7 - 2.3 mg/dL 2.1 ASSESSMENT/PLAN: (C20) Rectal malignant neoplasm (HCC) (primary encounter diagnosis) Assessment: -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 -Tumor board recommended therapy as squamous cell carcinoma the anal canal. -DPYD Genotype: *1/*1; Activity Score: 2; DPYD Predicted Phenotype: DPYD Normal Metabolizer. -He is tolerating therapy very well thus far with no severe or unexpected toxicity. -Discussed potential for day 29 Mitomycin-C depending on how his counts go. -Discussed bowel regimen.. Plan: -Continue capecitabine 825 mg/m (1600 mg) twice daily Wednesday through Wednesday of the weeks of radiation. -Mitomycin-C 10 mg/m on day 29 pending tolerance/counts. -Recommended MiraLAX 3 times daily and 1 Senokot tablet twice daily for the time being. He will back off on that regimen should he develop loose stools or diarrhea. -Weekly lab work. -Office visits during weeks 2, 4 and 6. -Repeat MRI and endoscopic surgical evaluation about 4 to 6 weeks after completing therapy. Portions of this documentation were copied and pasted from previous office visit notes in order to provide a cohesive continuity of the history. The note has been reviewed and edited and updated as necessary. During this patient visit I have spent approximately 20 minutes out of 25 in counseling regarding treatment options, medications and test results and coordinating care. Helen Lakhani DO documented in this encounterSam[facility]04-19-2022 Miscellaneous Notes* Addendum Note - Helen Lakhani DO - 06/17/2021 5:03 PM EDT Addended by: HELEN LAKHANI on: 06/17/2021 05:03 PM Modules accepted: Orders * Telephone Encounter - Helen Lakhani DO - 06/17/2021 5:03 PM EDT Best to get UA and culture tomorrow if he is able. Helen Lakhani DO * Telephone Encounter - Amelia Souza RN - 06/17/2021 4:23 PM EDT ORAL ANTI-CANCER AGENTS FOLLOW-UP PHONE CALL/VISIT Patient identified by name and date of . YES Patient is on cycle 1, week 2, day 9 of Capecitabine (Xeloda) for Colon / Rectal Cancer. SYMPTOM ASSESSMENT Headache: Yes resolves after relaxing Visual Changes: No Dizziness: No Do you have any periods of confusion? No Mood changes: No Mouth or throat pain: "slighty sore areas in my mouth." Patient stated on the right side of his tongue is sore. Appetite: no changes in appetite, appetite good Taste changes: No Nausea: No Vomiting: No Heartburn: No. Weight gain/loss: Unable to assess Episodes of palpitations/chest discomfort/pressure/pain No Shortness of breath: No Cough: No Diarrhea: no Constipation: yes, last BM yesterday Bladder/Urinary Changes: "Tender" when he urinates. Patient feels his urethra is "just a little" sensitive when voiding, this started a couple days ago. Patient denies hematuria. Pain: Pain in his rectum after straining with BMs, that resolved after taking tylenol. Fever: No Chills: No Cold sensitivity: No Numbness/weakness: No Edema: No Skin changes: patient has a raised area on the back of his left hand that is itchy. "a little bit red, its nothing really." patient denies pus or drainage. Itching: the spot on the back of his hand Yellowing of skin or eyes: No Musculoskeletal/joint changes/issues No Bleeding issues: Patient stated he had bleeding from his rectum but this has resolved. Activity Level (0-100%): normal Does the patient need interventions or same day appointment: Patient has an OV with Dr. Lakhani tomorrow. ADDITIONAL FOLLOW UP: 1. The next outreach call is due on: TBD and was scheduled patient instructed to call if he has anyworsening symptoms. 2. The following lab tests are due: CBC/CMP/Mg 06/16/21 3. Verified patient is aware of next appointment in the cancer center: Yes. 4. Verified patient verbalized how to correctly refill the oral agent prescription. Yes 5. Does the patient have any financial difficulties affording this medication? No 6. Patient verbalizes understanding of when to seek Medical Attention? YES 7. Patient verbalizes understanding of after-hours and weekend phone number? YES Patient verbalized importance of medication compliance in taking the oral agent as prescribed. Patient instructed to call if unable to comply. Amelia Souza RN CYCLE 1/DAY 1 POST TREATMENT CALL Today's date: June 17, 2021 Treatment Regimen: Mitomycin C and Xeloda C1D1 Date: 06/09/2021 Called patient to follow-up on symptom management. Spoke with patient SYMPTOM ASSESSMENT Neuro: Patient stated he has headaches that resolves after he relaxes. CV/Resp: None GI/: Constipation: yes, last BM "good" BM was Wednesday morning. Patient took 2 dulcolax on Wednesday. Integument: Patient denies Activity: Patient reported no changes in energy level, energy level good Pain: Patient had pain a couple of days ago in his rectal area. Patient took tylenol and this resolved the pain. Patient stated he feels he has been straining with BM's. Fever: No Chills: No Any new referrals needed? No Reinforced CURRENT treatment education based on current and anticipated symptoms. Discussed port/line care and patient verbalizes understanding: No Patient instructed to contact office or after hours Hematology/Oncology fellow for: temperature ? 100.4; questions or concerns. Patient verbalized understanding of when to seek medical attention and after hours number protocol. Amelia Souza RN documented in this encounterSam[facility]04-19-2022 History of Present illness Narrative* Marisela Rome MD, MD - 06/17/2021 2:07 PM EDT Radiation Oncology - On Treatment Review (OTR) Note PATIENT NAME: Jai Luna PATIENT DIAGNOSIS: Clinical stage IIIA, 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 COURSE: definitive and concurrent chemotherapy (Mitomycin and Xeloda) AREA TREATED: Pelvis CURRENT DOSE: 1080 cGy in 6 fx PLANNED DOSE: 5400 cGy in 30 fx SUBJECTIVE: He has constipation. He will use stool softener regularly. He denies any nausea/vomiting. He reports that rectal bleeding stopped now. EXAM: KPS: 90 General Appearance: Alert and oriented. No acute distress. IMAGING/LAB RESULTS: CBC yesterday reviewed. Treatment chart checked: Yes Patient treatment site reviewed and verified:Yes CBCTs reviewed and current:Yes Medications started: None ASSESSMENT/PLAN: Clinically stable. Toxicity within expected parameters. Continue radiation treatment as planned. Marisela Rome MD documented in this encounterSamar[facility]04-19-2022 Nurse Note* Krys Stafford RN - 06/17/2021 1:57 PM EDT Radiation Therapy - Nursing Note (OTV) PATIENT NAME: Jai Luna PATIENT June 17, 2021 [facility] FACILITY/LOCATION: [facility] NURSING NOTE TYPE: RECTAL Subjective Data see pain assessment Additional Data Do you want to see a Casing Crew Pusher? No Status: Patient is male Stress Scale: On a scale of 0 to 10, what number best describes how much distress you have experienced in the past week?(0 being no distress and 10 being extreme distress) 2 Social work notified: no Nursing Assessment Fatigue: none Appetite: good Nutritional Intake: Regular oral intake. Weight Gain/Loss: No Ambulatory weight history: Last 6 Encounter Wt Readings: Date: Wt: 06/06/2021 89.4 kg (197 lb) 06/02/2021 89.8 kg (198 lb) 05/29/2021 89.4 kg (197 lb) 05/29/2021 88.7 kg (195 lb 9.6 oz) 04/30/2021 90.6 kg (199 lb 11.2 oz) 04/30/2021 90.7 kg (200 lb) Nausea:None Vomiting: None Bowel Function: constipation 1 - bowel movement every 2 - 3 days Erythema/Hyperpigmentation:none Desquamation:none Rash:none Skin Care: None Skin Sensation: Within Normal Limits Focused Assessment RECTAL: Dysuria: none and Urinary urgency/frequency: None SIGNED by: Krys Stafford RN documented in this encounterSamaritan [facility]04-18-2022 History of Present illness Narrative* Enid Garsia RN - 06/16/2021 8:05 AM EDT Patient is here for PICC flush/blood draw. Location: Right arm Flush with 5cc's Normal Saline. Blood Return: Good. 10 cc's blood aspirated and discarded. Blood drawn for CBC and CMP. Flushed with: 20 ml Normal Saline. Dressing dry and intact, removed, site cleaned and new dressing applied per [facility] protocol Site negative for redness, edema or tenderness. Patient tolerated procedure well. documented in this encounterSamaritan [facility] Center04-13-2022 Miscellaneous Notes* Telephone Encounter - Shamar Stafford - 06/11/2021 1:06 PM EDT Working Cancer [facility]iot[facility]. Patient is active with Medicare A and B as well as [facility], and is not expected to have any financial responsibility for treatment in [facility]. There are no open foundations for Dx. Spoke with patient and advised of navigator services and insurance. Patient stated understanding and advised that they are ok at this time. documented in this encounterSamaritan [facility] Center04-11-2022 Miscellaneous Notes* Telephone Encounter - Rabia Cash - 06/09/2021 3:26 PM EDT Adjusted schedule to include triage/PICC Draws. Rabia Cash * Telephone Encounter - Rabia Parker RN - 06/09/2021 2:24 PM EDT Pt opting to leave picc line in. Please place on port schedule for future lab draws. Thank you. * Telephone Encounter - Helen Lakhani DO - 06/09/2021 1:37 PM EDT Yes, that would be okay. Helen Lakhani DO * Telephone Encounter - Rabia Parker RN - 06/09/2021 1:31 PM EDT Pt asking if he is able to leave his PICC line in for weekly lab draws. He was scheduled to have it taken out today following the Mitomycin infusion. Please advise. documented in this encounterSamaritan [facility]04-10-2022 Miscellaneous Notes* Telephone Encounter - Nica Cyr - 06/08/2021 7:39 AM EDT I scheduled patient for the first available new consult with which was not until 02/10/2022. I did send the patient a MyChart message about this. * Telephone Encounter - Amelia Souza RN - 06/06/2021 2:37 PM EDT Patient informed of Dr. Lakhani's response, stated understanding. Patient does not have a PCP. Patient agreeable to establish with Dr. Faust. Please schedule. Thank you. Amelia Souza RN * Telephone Encounter - Helen Lakhani DO - 06/06/2021 2:07 PM EDT Remind him I sent in a prescription for Zofran for him to have on hand if needed for nausea. Also we need to enter his PCP's information into [employer]. Helen Lakhani DO documented in this encounterSamaritan [facility]04-08-2022 History of Present illness Narrative* Helen Lakhani DO - 06/06/2021 1:21 PM EDT Patient referred by [facility] for further management of squamous cell carcinoma of the rectum. The impression and plan will be communicated by way of the shared electronic record or faxed under separate cover letter. HPI: The patient is a 71-year-old male who has a past medical history significant for acoustic neuroma, cervical radiculopathy, CAD (CABG 1994), hypertension, dyslipidemia, BPH (TURP 2016) and bilateral carotid artery stenosis. He noticed a change in his bowel habits manifested as thinner stools. He is also developing rectal pain when defecating. He underwent a colonoscopy on 03/20/2021. There was a partially obstructing mass in the rectum observed. Biopsies revealed submucosa with chronic inflammation, histiocytes and rare atypical cells. It was nondiagnostic otherwise. An MRI demonstrated a 5 cm mid rectal mass with extramural vascular invasion and tumor contacting/abutting the mesorectal fossa with a single small suspicious mesorectal lymph node. The tumor was 8 cm from the anal verge. It was classified as cT3d N+. CT of chest, abdomen pelvis was negative for metastatic disease. Baseline CEA was 1.4 ng/mL. Patient underwent an exam under anesthesia with 3 biopsy on 05/06/2021. Pathology demonstrated invasive moderately differentiated squamous cell carcinoma. His case was presented at tumor board and management per anal squamous cell carcinoma recommended with Charlene regimen followed by proctectomy. He has been seen by radiation oncology and is already received capecitabine. His appetite has been normal. His stool is still ribbon like. No bleeding. He gets frequent constipation but it can be relieved with Dulcolax. PMH, medications and allergies personally reviewed by me today. Any changes documented in appropriate section. ROS: Constitutional: Denies episodes of fever and night sweats. Not significantly fatigued. Normal appetite. Neuro: Denies MCNEAL, vertigo, dizziness and imbalance. Denies symptoms of neuropathy. HEENT: No recent change in voice, vision or hearing. Resp: Denies cough, wheeze and hemoptysis. Denies shortness of breath at rest. Denies BANKS. CVS: Denies exertional chest pain, PND, orthopnea and LE edema. GI: Denies dysgeusia. Denies symptoms of stomatitis. Denies dysphagia and odynophagia. Denies reflux, n/v, change in bowel habits and abdominal pain. : Denies dysuria or gross hematuria. No symptoms of bladder outlet obstruction. Endo: Denies hot flashes. Denies polyuria and polydipsia. Denies heat and cold intolerance. Musculoskeletal: Denies bone, back, joint and muscular pain. Derm: Denies rash. Denies jaundice and diffuse pruritis. Heme: Denies unusual bleeding and unexplained bruising. Psych: Normal mood. PHYSICAL EXAM: Vitals: Blood pressure 170/74, pulse (!) 56, temperature 36.1 C (96.9 F), height 168 cm (5' 6.14"),weight 89.4 kg (197 lb), SpO2 97 %. Well-appearing and in no acute distress. EYES: Sclerae are anicteric bilaterally. LYMPHATIC: There is no palpable cervical, supraclavicular, axillary or inguinal adenopathy. RESPIRATORY: Inspiratory breath sounds are of normal intensity in all nava. No rales, wheezes or rhonchi. Expiratory phase is normal. CARDIOVASCULAR: Rhythm is regular. Normal intensity S1/S2. There is no gallop or murmur. ABDOMEN: The abdomen is nondistended. No organomegaly. No tenderness. Extremities: No swelling or edema. SKIN: No jaundice or rash. No petechiae. NEUROLOGIC: senior hr manager II-XII are grossly intact. No focal motor weakness. DTRs are symmetric and normal. MUSCULOSKELETAL: No joint swelling or tenderness. No muscle wasting. 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 -Tumor board recommended protein therapy as squamous cell carcinoma the anal canal. -DPYD Genotype: *1/*1; Activity Score: 2; DPYD Predicted Phenotype: DPYD Normal Metabolizer. -Agree with recommended therapy with capecitabine and mitomycin-C. Discussed the rationale (extrapolation from treatment of squamous cell carcinoma of the anal canal), logistics, potential risks (including ), benefits and alternatives, as well as the personnel involved in the administration ofcapecitabine and mitomycin-C when given with concurrent radiation. I answered his questions in detail and he verbalized understanding and agreed with the recommended therapy. Please see the electronic consent document for details of doses and schedule. Plan: -PICC line insertion Wednesday morning. May be removed following mitomycin-C administration on Wednesday. -Capecitabine 825 mg/m (1600 mg) twice daily Wednesday through Wednesday of the weeks of radiation--reviewed instructions with him. -Mitomycin-C 10 mg/m on days 1 and possibly 29 pending tolerance/counts. -Rx Zofran for as needed use. -Weekly lab work. -Office visits during weeks 2, 4 and 6. -Repeat MRI and endoscopic surgical evaluation about 4 to 6 weeks after completing therapy. I spent a total of 50 minutes on the date of the service which included preparing to see the patient, [id number] patient care, completing clinical documentation, obtaining and/or reviewing separately obtained history, performing a medically appropriate examination, counseling and educating the pat ient/family/caregiver, ordering medications, tests, or procedures, independently interpreting results (not separately reported) and communicating results to the patient/family/caregiver. Helen Lakhani DO documented in this encounterSamaritan [facility] Center04-05-2022 Miscellaneous Notes* Telephone Encounter - Josselyn Stanford RPh - 06/03/2021 3:45 PM EDT Queued up prescription for Xeloda for 1650mg BID dosing per our conversation for 5 weeks of chemoRT. Please review and sign if this change is acceptable. Thank you. Dominick ShelbyD Clinical Pharmacist, Oncology [facility] P: , F: Pool: P [facility] Pool #: [id number] documented in this encounterSamaritan North Health Center04-04-2022 Nurse Note* Krys Stafford RN - 06/02/2021 10:11 AM EDT Radiation Therapy - Patient Education Note PATIENT NAME: Jai Luna PATIENT [birth year], 2021 [facility] FACILITY/LOCATION: [facility] READINESS TO LEARN Cognitive Ability: Alert and oriented Motivation to learn: Eager Interested Family Support: Unable to assess - Family not present Instruction provide to: Patient Patient learns best by: Multiple Methods Factors effecting learning: None Physical limitations effecting learning: None LEARNING RESPONSE Diagnosis: Pt simulated today for radiation therapy to pelvis. Education Topic/Teaching Points: Radiation therapy, Side effects and OTV: Method of instruction: Teach Back skin care Individual instruction Written instruction - handouts Verbal instruction Patient /Family response: Patient verbalized understanding of radiation treatments, side effects, OTV, and transportation. Follow-up plan: Patient instructed to call with any further issues Contact information given. Supplemental material: Informational handouts on Department phone list, Bladder function, Diarrhea,Fatigue and Lea instructions, XRT sheet and Aquaphor handout. Referral (recommendation): None, Pt denied need for social work, van service, and managed care manager. Was approved? unknown Signed by: Krys Stafford RN * Krys Stafford RN - 06/02/2021 9:15 AM EDT Radiation Therapy - Nursing Note (Consult) PATIENT NAME: Jai Luna PATIENT [birth year], 2021 [facility] FACILITY/LOCATION: [facility] Chief Complaint: consult Reason for visit: Consult. Referring physician: Internal provider Dr Huitron Subjective Data: pt reports rectal bleeding Additional Data Do you want to see a Casing Crew Pusher? No Are you interested in information about fertility? No Status: Patient is male Stress Scale: On a scale of 0 to 10, what number best describes how much distress you have experienced in the past week?(0 being no distress and 10 being extreme distress) 0 Social work notified: Pt denied need to see long term care social worker at this time. Radiation therapy teaching initiated. [facility] external beam radiation therapy handout given. Departmentphone numbers given & patient encouraged to verbalize questions. SIGNED by: Krys Stafford RN documented in this encounterSamaritan North Health Center04-04-2022 History of Present illness Narrative* Enid Natarajan (Link Trainer Teacher) - 06/02/2021 9:17 AM EDT [facility] received prescription(s) for Capecitbine from Dr. Bowens's office. Benefits investigation was conducted, indicating that a prior authorization is not required at this time per patient's plan with Medicare B. Prescriptions will now be processed through [facility] Special[facility] for determination of next steps. 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 HPI: 71 year old male who presents with above diagnosis, for an opinion regarding the role of radiation therapy in the management of the patient's disease. Final recommendations will be communicated back to the requesting physician by way of the shared medical record, or letter to requesting physician via US mail. 71 year old man with history of prostate cancer 4-5 years ago found incidentally at the time of TURP. PSA on 08/30/18 was 0.44 ng/mL. He noted changes in bowel habit since he had COVID infection in May 2020. He had constipation and dull pain in the rectal area. He had pain with defecation. Stool issoft and small caliber. He sought medical attention and saw Dr. Oneill. Colonoscopy on 03/20/21 showed a villous partially obstructing large mass in the rectum. There was a 15 mm polyp in the cecum. Biopsy of the rectal mass was non-diagnostic. Biopsy of the cecal polyp showed tubular adenoma. on 04/30/[address] abdomen/pelvis on 03/21/21 showed a soft tissue density in the posterior rectum measuring 3.2 x 3.7 x 3.1cm. Posterior aspect of the lesion is within about 3 to 4 mm of the mesorectum. No abdominalor pelvic lymphadenopathy. There were multiple liver cysts and no findings suggestive of a soft tissue hepatic mass. CT chest on 04/09/21 showed no convincing findings of metastatic disease in the thorax. MRI rectum on 04/09/21 showed a 5 cm eccentric mid rectal mass at 5.8 cm from the anorectal junction. It penetrates > 15 mm beyond muscularis propria involving mesorectal fascia. There was a right posterior perirectal node measuring 0.6 cm. He was seen by Dr. Cheung and underwent EUA with flexible sigmoidoscopy on 05/06/21. He was found to have the rectal mass posteriorly located midline. It was very firm and fixed to the bone and presacral fascia. Biopsy of the rectal mass on 05/06/21 showed invasive moderately differentiated squamous cell carcinoma. He takes laxatives (ducolax) and has bowel movements 1-3 times daily. He has occasional blood in stool. ALLERGIES Allergen Reactions Clindamycin GI Upset Codeine Current Outpatient Medications on File Prior to Visit Medication Sig ubidecarenone (CO Q-10 ORAL) Take by mouth. Take one(1) tablet daily. DULCOLAX, BISACODYL, ORAL Take 1 tablet by mouth. as necessary clopidogrel (PLAVIX) 75 mg tablet Take 75 mg by mouth once daily. metoprolol succinate ER (TOPROL XL) 25 mg 24 hr tablet Take 1 tablet by mouth twice daily. atorvastatin (LIPITOR) 80 mg tablet Take 0.5 tablets by mouth daily at bedtime. For cholesterol. cholecalciferol(VITAMIN D-3 400 UNIT CAP) Take one(1) tablet daily. peg 3350-Electrolytes (GOLYTELY) 236-22.74-6.74 -5.86 gram suspension Refer to printed prep instructions from your provider. ubidecarenone/vitamin E mixed (COQ10 SG 100 ORAL) Take by mouth once daily. PATIENT STATES ON MOST DAYS predniSONE (DELTASONE) 5 mg tablet Take ten tabs by mouth on day one and reduce by one a day till done. (Patient not taking: Reported on 02/11/2021 ) ascorbic acid(VITAMIN C 500 MG TAB) Take one(1) tablet twice daily FOLIC ACID 1 MG TAB Take one(1) tablet daily. (Patient not taking: Take one(1) tablet daily.) omega-3 fatty acids(FISH OIL 500 MG CAP) Take one(1) capsule daily. (Patient not taking: Take one(1) capsule daily.) vitamin b complex(B COMPLEX CAP) Take one(1) capsule daily. (Patient not taking: Take one(1) capsule daily.) ASPIRIN 81 MG TAB Take one(1) tablet daily. (Patient not taking: Take one(1) tablet daily.) No current facility-administered medications on file prior to visit. 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 Coronary atherosclerosis of unspecified type of vessel, seneca or graft Coronary artery disease Diverticulosis of colon (without mention of hemorrhage) History of transfusion Hypertension Rectal mass Prior radiation therapy, collagen vascular disease, or inflammatory bowel disease: No PAST SURGICAL HISTORY Procedure Laterality Date COLONOSCOPY 03/20/2021 COLONOSCOPY FLX DX W/COLLJ SPEC WHEN PFRMD 08/24/2007 Colonoscopy CORONARY ARTERY BYP W/VEIN & ARTERY GRAFT 3 VEIN 03/01/1994 CABG, three grafts EYE SURGERY HX HEART SURGERY HX PERC TRANSL COR ANGIO 10/31/2003 Percutaneous Transluminal Coronary Angio Status PROSTATE SURGERY HX STRABISMUS RECESSION/RESCJ 1 [facility]NT[facility] Strabismus surgery TONSILLECTOMY HX TONSILLECTOMY PRIMARY/SECONDARY <AGE 12 Tonsillectomy VASCULAR SURGERY PROCEDURE FAMILY HISTORY Problem Relation Age of Onset Emphysema Mother Heart Father Social History Tobacco Use Smoking status: Former Smoker Packs/day: 1.00 Years: 30.00 Pack years: 30.00 Types: Cigarettes Quit date: 01/29/2000 Years since quittin.3 Smokeless tobacco: Never Used Substance Use Topics Alcohol use: Yes Comment: rarely Drug use: No COMPLETE REVIEW OF SYSTEMS: GENERAL: feeling well without fatigue, no recent change in weight HEENT: He has hearing loss in the left ear. NECK: denies swelling or pain in neck RESPIRATORY: no cough, no wheezing or shortness of breath CARDIOVASCULAR: no chest pain, no palpitations. h/o CAD s/p CABG. GI: see HPI. : urination is normal MUSCULOSKELETAL: arthritis hip pain. SKIN: h/o shingles years ago. HEMATOLOGY/LYMPHOLOGY: negative for prolonged bleeding, no swollen lymph nodes. He is on Plavix. NEURO: no numbness or paresthesias and no weakness of the extremities PHYSICAL EXAM: VS: BP 155/73 Pulse 72 Temp 36.2 C (97.2 F) (Temporal) Resp 15 Wt 89.8 kg (198 lb) SpO2 98% BMI 31.96 kg/m KPS: 90 General Appearance: Alert and oriented. No acute distress. HEENT: NCAT. Sclera anicteric. EOMI. Neck: Normal ROM. Chest: No respiratory distress. Musculoskeletal: No edema. Normal ROM in extremities. Neuro: Speech fluent. Gait normal. No focal deficits. Skin: No rashes noted RADIOLOGY/LABORATORY DATA: see HPI ASSESSMENT AND PLAN: 71 year old man with clinical stage IIIA, T2N1, invasive moderately differentiated squamous cell carcinoma of the rectum. His case was discussed at the [facility] main campus tumor board and chemoradiation treatment per anal cancer protocol was recommended. I agree. I explained the rationale, benefits, alternative management options and potential complications of radiation treatment to the patient and he understands and agrees to proceed. It was explained and understood that other personnel such as radiation therapists, guest relations executive, and physicists will participate in planning and delivery of radiation treatment. Permanent tattoo rivero will be placed to aid with positioning for daily treatment and the patient consented. Patient will have a simulation procedure today. He saw Dr. Bowens at the main campus and is scheduled to see Dr. Lakhani this Wednesday. Thank you very much for allowing us to participate in his care. Signed by: Marisela Rome MD cc: Susu Talia Huitron [id number] [facility] [id number] [facility] Ramiro Cheung documented in this encounterSamaritan [facility] Center04-04-2022 History of Present illness Narrative* Marisela Rome MD, MD - 06/02/2021 12:00 AM EDT JAI LUNA [id number] 06/02/[address] [facility] Department of Radiation Oncology [facility] RADIATION ONCOLOGY SIMULATION NOTE DATE OF SIMULATION: 06/02/2021 MACHINE: Siemens Definition CT Simulator Diagnosis: Stage III, T2N1, squamous cell carcinoma of the rectum. AREA:Pelvis. PATIENT POSITION: Supine. CONTRAST: None PROTOCOL: None BLOCKING: Custom blocking to be determined at treatment planning. FIXATION DEVICE: In order to achieve accurate and reproducible treatments, the patient is to be immobilized with custom vac bag. PROCEDURE: A time-out was conducted and recorded by the therapist. Patient was simulated on the CT scanner for external beam radiation therapy. Treatment site was marked by the simulation therapist. ASSESSMENT/PLAN: Patient tolerated simulation procedure well. Treatments will be initiated after treatment planning. The patient is scheduled for a verification simulation on the treatment machine toensure proper set-up and field arrangement is correct prior to the first treatment of primary and boost nava if applicable. Electronically Signed Marisela Rome M.D./ 29:17 AM documented in this encounterSamaritan North Health Center04-04-2022 History of Present illness Narrative* Marisela Rome MD, MD - 06/02/2021 12:00 AM EDT JAI LUNA [id number] 06/02/[address] [facility] Department of Radiation Oncology Treatment Planning Note For reasons stated in the consult note, Jai Luna is a candidate for radiation therapy. Based onreview and interpretation of the relevant diagnostic studies together with the exam findings, Jai Luna was simulated on 06/02/2021 at which time the target volume and/or requisite nava were delineated, as indicated in the simulation note, to be treated according to the prescription. The treatment target and organs at risk were contoured on the simulation scan Using the fused MRI. Special consideration to these and other structures was given in light of the potential for increased toxicities of combined chemoradiation. After reviewing multiple treatment plans with dosimetry, the best plan was approved to deliver the prescribed course of radiation to the target area using inverse planning to allow for the best isodose distribution, treating to the 98.2% isodose line with 10 MV and 3 vmat nava. Custom MLC for IMRT were the treatment device(s) used to shape/modify the beams. Limiting dose to normal tissue was confirmed upon review of the calculated dose volume histogram. IMRT planning was used because it best met the dose/volume constraints for the organs at risk for this patient, better than what could be achieved using conventional or 3D planning. The specific doserequirements for the PTV, organs at risk and dose-volume histograms are contained in this treatmentplan and/or elsewhere in the medical record. A completed summary of this plan dated 06/05/21 incorporated herein by reference includes dose, beam arrangements, energy, blocking, isodose distribution, and/or ports and DVH. Electronically Signed Marisela Rome M.D. 21:47 PM documented in this encounterSamaritan North Health Center04-01-2022 History of Present illness Narrative* Enid Natarajan (Link Trainer Teacher) - 05/30/2021 3:12 PM EDT [facility] received prescription(s) for Capecitabine from Dr. Bowens's office. Benefits investigation was conducted, indicating that a prior authorization is not required at this time per patient's plan with Medicare. Prescriptions will now be processed through [facility] Special[facility] for determination of next steps. Enid Natarajan [facility] Oncology P: [phone] F: [phone] documented in this encounterSamaritan North Health Center03-31-2022 History of Present illness Narrative* Susu Huitron MD - 05/29/2021 11:00 AM EDT Radiation Oncology - New Patient/Consult Note PATIENT NAME: Jai Luna PATIENT REQUESTING PROVIDER: Dr. Dutch Cheung DIAGNOSIS: 71 year old male with 5 cm squamous cell carcinoma of the rectum, 8 cm from anal verge and 5.8 cm from anorectal junction, EMVI + and abutting MRF, with 0.6 cm suspicious mesorectal node, stage T2N1M0 (anal staging system) HPI: 71 year old male who presents with above diagnosis, for an opinion regarding the role of radiation therapy in the management of the patient's disease. Final recommendations will be communicated back to the requesting physician by way of the shared medical record, or letter to requesting physician via US mail. Mr. Luna is a 71 year old male with PMHx of acoustic neuroma, HTN, CAD s/p CABG, diverticulosis, and low grade prostate Ca s/p TURP that initially presented for evaluation of changes in his bowel habits that he first developed around May 2020 when he was diagnosed with Covid-19. He characterized these as extremely firm and small stools that were painful to pass with a constant dull ache in his rectal area. He underwent a colonoscopy on 03/20/21 which showed a partially obstructing, non-circumferential tumor in the rectum as well as rectal polyps. Pathology from this was non-diagnostic. MRI rectum 04/09/21 showed a 5 cm eccentric mid rectal mass with extramural vascular invasion (EMVI) and tumor abutting the mesorectal fascia (MRF), 8 cm from verge and 5.8 from anorectal junction. Asingle, small 0.6 cm suspicious mesorectal node was present. CT C/A/P did not show metastatic disease. He then had a rectal exam under anesthesia, Flex-sig and re-biopsy on 05/06/21, with pathology showing invasive moderately differentiated squamous cell carcinoma. He was discussed at tumor board on 05/21/21 and recommended modified Charlene protocol. Today, patient is feeling well. Reports 1-3 daily bowel movements with the aid of dulcolax. Characterizes them as small volume with mild pressure sensation. Reports some fatigue, tires easily with climbing stairs, yard work, etc. Denies diarrhea, constipation, melena, hematochezia. 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 Coronary atherosclerosis of unspecified type of vessel, seneca or graft Coronary artery disease Diverticulosis of colon (without mention of hemorrhage) History of transfusion Hypertension Rectal mass Prior radiation therapy, collagen vascular disease, or inflammatory bowel disease: No PAST SURGICAL HISTORY Procedure Laterality Date COLONOSCOPY 03/20/2021 COLONOSCOPY FLX DX W/COLLJ SPEC WHEN PFRMD 08/24/2007 Colonoscopy CORONARY ARTERY BYP W/VEIN & ARTERY GRAFT 3 VEIN 03/01/1994 CABG, three grafts EYE SURGERY HX HEART SURGERY HX PERC TRANSL COR ANGIO 10/31/2003 Percutaneous Transluminal Coronary Angio Status PROSTATE SURGERY HX STRABISMUS RECESSION/RESCJ 1 [facility] [place] Strabismus surgery TONSILLECTOMY HX TONSILLECTOMY PRIMARY/SECONDARY <AGE 12 Tonsillectomy VASCULAR SURGERY PROCEDURE FAMILY HISTORY Problem Relation Age of Onset Emphysema Mother Heart Father Social History Tobacco Use Smoking status: Former Smoker Packs/day: 1.00 Years: 30.00 Pack years: 30.00 Types: Cigarettes Quit date: 01/29/2000 Years since quittin.3 Smokeless tobacco: Never Used Substance Use Topics Alcohol use: Yes Comment: rarely Drug use: No Residence: [place], [place] - [address] 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 KPS: 90 General Appearance: Alert and oriented. No acute distress. HEENT: NCAT. Sclera anicteric. PERRL. EOMI. Neck: Normal ROM. Chest: No respiratory distress. Lungs clear to auscultation bilaterally. Heart: No cyanosis Abdomen: Nondistended. Musculoskeletal: No edema. Normal ROM in extremities. Neuro: Speech fluent. Gait normal. No focal deficits. Skin: No rashes noted Hematologic: No signs of active bleeding. RADIOLOGY/LABORATORY DATA: 04/09/21 MRI rectum 5 CM ECCENTRIC MID RECTAL MASS WITH EMVI AND TUMOR CONTACTING/ABUTTING THE MRF ITSELF. SINGLY SMALL SUSPICIOUS MESORECTAL LYMPH NODE. Although histologic results were previously inconclusive, presuming this is a rectal adenocarcinoma, the synoptic staging would be as below. Stage: T3d N+ MRF: Involved (tumor margin within 1 mm of MRF Sphincter involvement: No. Suspicious extra mesorectal lymph nodes: None. EMVI: Yes. 04/09/21 CT Chest 1. No convincing findings of metastatic disease in the thorax. No significant thoracic lymph node enlargement. 03/21/2021 CT A/P Rectal mass consistent with colonoscopy findings. Hepatic and renal cysts Pathology: A. Rectum, mass, biopsy: - At least high-grade squamous intraepithelial lesion (HSIL), with focal features suspicious for invasion (see comment). B. Rectum, mass, danielle-cut biopsy #1: - Invasive moderately differentiated squamous cell carcinoma (see comment). C. Rectum, mass, danielle-cut biopsy #2: - Invasive moderately differentiated squamous cell carcinoma (see comment). D. Rectum, mass, danielle-cut biopsy #3: - Invasive moderately differentiated squamous cell carcinoma (see comment). A. 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 Multiple deeper levels were examined on selected blocks. ASSESSMENT AND PLAN: 71 year old male with a 5 cm squamous cell carcinoma of the rectum, 8 cm from anal verge and 5.8 cmfrom anorectal junction, EMVI + and abutting MRF, with 0.6 cm suspicious mesorectal node, stage T2N1M0 (anal staging system) We had a detailed discussion with Mr. Luna regarding the role of chemoradiation therapy in the management of his newly diagnosed rectal squamous cell carcinoma. We discussed the differences between rectal cancer and anal cancer and that although his tumor is located in the rectum, we typically manage these based on histology and will thus treat as an anal cancer. We discussed the rationale, logisitics, acute/late side effects, and toxicity of radiation therapy in detail as it pertains to the patient's diagnosis.After our discussion, he would like to proceed with chemoRT. However, he lives in [place] and would like to receive his cares locally. We will reach out to Dr. Rome to discuss our treatment recommendations. We would plan to treat him with an SIB approach of 54 Gy/25 fx and 45 Gy/25 fx. We will help to coordinate a consult and sim with Dr. Rome. Rivera Moyer, MS4 The patient was discussed and seen with the medical student Rivera Moyer. I agree with the above documentation, assessment, and plan. Signed by: Kyle Emerson MD PGY-3 Radiation Oncology Resident TEACHING PHYSICIAN NOTE OF PERSONAL INVOLVEMENT IN CARE I performed a history and physical examination of the patient and discussed his management with theresident, medical student, patient and patient's . I reviewed the resident's notes and agree with documented findings and plan of care. Susu Huitron MD Authenticated by responsible provider. cc: I Dutch Cheung [address] [facility] [id number] Caty Bowens [facility] Heme/Onc Marisela Rome [facility] Radiation On[facility] documented in this encounterSamaritan North Health Center03-31-2022 Nurse Note* Bertha Orosco MA - 05/29/2021 10:06 AM EDT Additional intake questions: Has the patient had fever, nausea, vomiting, diarrhea, constipation, fatigue for > 1 week? Yes, constipation (day of last BM TODAY) Does the patient have a decreased appetite? No Does patient want to see a Casing Crew Pusher? Unable to assess due to N/A (yes to any of above refer patient to schedulers for dietitian appointment) ) Does patient have any new or increased numbness or tingling of extremities? No Is patient interested in fertility information? NA Does patient need any prescription refills? No Does patient have an advanced directive in place? No, Patient refused referral to Social Work or Resource Center documented in this encounterSamaritan [facility] Health Center03-31-2022 History of Present illness Narrative* Caty Bowens MD - 05/29/2021 10:00 AM EDT [facility] ONCOLOGY CLINICAL NOTE PATIENT NAME: Jai Luna DATE OF : 1950 CLINIC NO.: [id number] DATE OF SERVICE: May 29, 2021 REFERRING PHYSICIAN: Ramiro Cheung [address] [facility] [id number] PRIMARY CARE PHYSICIAN: No Pcp CONSULTATION REGARDING: Rectal squamous cell carcinoma Final recommendations will be communicated through shared medical records or US mail. DIAGNOSIS: Stage III (cT3dN1 cM0) Invasive squamous cell carcinoma of the rectum TUMOR BIOMARKERS: Baseline CEA: 1.4 GERMLINE TESTING: N/A ONCOLOGICAL HISTORY: Jai Luna is a 71 year old year-old male with a history of CAD s/p CABG in 1994, HTN, and diverticulosis who had a change in bowel habits with thinner stools and rectal pain and underwent colonoscopy on 03/20/2021. He was found to have a partially obstructing mass in the rectum. Biopsies revealed submucosa with chronic inflammation, histiocytes, and rare atypical cells, not diagnostic. MRI showed a 5cm mid rectal mass with EVMI and tumor contacting/abutting the MRF with a single small suspicious mesorectal lymph node. Tumor was 8cm from the anal verge. T3dN1. CT C/A/P was negative for metastatic disease. CEA is 1.4. He underwent EUA and rebiopsy by Dr. Cheung on 05/06/2021. Pathology confirmed invasive moderately differentiated squamous cell carcinoma. His case was discussed at tumor board and recommended treatment per modified Charlene protocol followed by proctectomy. He is overall doing well. He has some rectal discomfort with bowel movements, but managed by ensuring soft stools with ducolax every few days. Intermittent blood with bowel movements. No nausea. No chest pain, shortness of breath, fevers. He remains physically active with golfing and yard work. Walks regularly with . PRIOR TREATMENT: Mar 20, 2021 -- Colonoscopy May 06, 2021 -- EUA and re-biopsy CURRENT TREATMENT: Pending start of Charlene protocol PERFORMANCE STATUS: ECOG = 0- Fully active, able to carry on all pre-disease performance w/o restriction. REVIEW OF SYSTEMS Complete review of at least 10 systems is per history of present illness, otherwise negative. HISTORIES: PMH: acoustic neuroma, CAD s/p CABG in 1994, diverticulosis, HTN PSH: eye surgery, prostate surgery, tonsillectomy FH: no history of cancer SH: Lives in [place], [place]. . 1 daughter. Former smoker (30 pkyr, quit 1999), rare alcohol use. 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 PHYSICAL EXAM: BP 135/79 Pulse (!) 51 Temp 36.2 C (97.2 F) (Temporal) Resp 16 Ht 167.6 cm (5' 6") Wt 89.4 kg (197 lb) SpO2 98% BMI 31.80 kg/m BSA = Body surface area is 2.04 meters squared. Accompanied by: Marilu Constitutional: AAOx3, No acute distress Eyes: Non-icteric, EOMI Respiratory: good breathing efforts, no wheezing. Cardiovascular: regular heart rate. Gastrointestinal: Soft. Not distended. Musculoskeletal: normal gait. Extremities: No edema in the lower extremities Skin: No rash, no ulceration, no erythema Psychological: appropriate mood and behavior LABS: Component Latest Ref Rng & Units 04/30/2021 WBC 3.70 - 11.00 k/uL 6.31 RBC 4.20 - 6.00 m/uL 4.62 Hemoglobin 13.0 - 17.0 g/dL 14.2 Hematocrit 39.0 - 51.0 % 43.6 MCV 80.0 - 100.0 fL 94.4 MCH 26.0 - 34.0 pg 30.7 MCHC 30.5 - 36.0 g/dL 32.6 RDW-CV 11.5 - 15.0 % 12.9 Platelet Count 150 - 400 k/uL 216 MPV 9.0 - 12.7 fL 10.9 Absolute nRBC <0.01 k/uL <0.01 Component Latest Ref Rng & Units 04/30/2021 Protein, Total 6.3 - 8.0 g/dL 7.0 Albumin 3.9 - 4.9 g/dL 4.1 Calcium 8.5 - 10.2 mg/dL 9.7 Bilirubin, Total 0.2 - 1.3 mg/dL 0.5 Alkaline Phosphatase 38 - 113 U/L 89 AST 14 - 40 U/L 30 ALT 10 - 54 U/L 19 Glucose 74 - 99 mg/dL 101 (H) BUN 9 - 24 mg/dL 15 Creatinine 0.73 - 1.22 mg/dL 0.94 Sodium 136 - 144 mmol/L 140 Potassium 3.7 - 5.1 mmol/L 4.4 Chloride 97 - 105 mmol/L 106 (H) CO2 22 - 30 mmol/L 24 Anion Gap 9 - 18 mmol/L 10 eGFR >=60 mL/min/1.73m 87 Component Latest Ref Rng & Units 04/30/2021 CEA <=2.9 ng/mL 1.4 PATHOLOGY: 03/20/2021 1. Cecal polyp, biopsy (A) - Tubular adenoma. 2. Rectal mass, biopsy (B) - Submucosa with chronic inflammation, histiocytes, and rare atypical cells, not diagnostic. See comment. 05/06/2021 A. Rectum, mass, biopsy: - At least high-grade squamous intraepithelial lesion (HSIL), with focal features suspicious for invasion (see comment). B. Rectum, mass, danielle-cut biopsy #1: - Invasive moderately differentiated squamous cell carcinoma (see comment). C. Rectum, mass, danielle-cut biopsy #2: - Invasive moderately differentiated squamous cell carcinoma (see comment). D. Rectum, mass, danielle-cut biopsy #3: - Invasive moderately differentiated squamous cell carcinoma (see comment). IMAGIN04/09/21 MRI rectum IMPRESSION: 5 CM ECCENTRIC MID RECTAL MASS WITH EMVI AND TUMOR CONTACTING/ABUTTING THE MRF ITSELF. SINGLY SMALL SUSPICIOUS MESORECTAL LYMPH NODE. Although histologic results were previously inconclusive, presuming this is a rectal adenocarcinoma, the synoptic staging would be as below. Stage: T3d N+ MRF: Involved (tumor margin within 1 mm of MRF Sphincter involvement: No. Suspicious extra mesorectal lymph nodes: None. EMVI: Yes. 04/09/21 CT Chest IMPRESSION: 1. No convincing findings of metastatic disease in the thorax. No significant thoracic lymph node enlargement. 03/21/2021 CT A/P IMPRESSION: Rectal mass consistent with colonoscopy findings. 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 We discussed that this is a rare cancer, representing <1% of all rectal cancers, but is treated similarly to anal cancers, which share the same pathology, with chemoradiation per the Charlene protocol. Overall, survival for rectal SCC is worse than both rectal adenocarcinomas and anal SCC. As such, tumor board recommendation is for likely proctectomy after Charlene protocol. He would like to get treatment closer to home at [place]. I will make the referral today to regional oncology at [place]. We discussed treatment with Charlene protocol with 5-FU vs capecitabine and he would prefer capecitabine. To avoid delays in treatment, capecitabine ordered today through [facility]. For mitomycin-C, prefer 12mg/m2 on day 1 alone, but given his BSA, he will max out at dose of 20mg. Anticipate that even with 10mg/m2 on day 1 (also dose of 20mg), he would be unable to receive day 29 treatment due to cytopenias. As such, would plan to do only day 1 of treatment with mitomycin-C via PICC line. Chemotherapy side effects discussed with patient 1. Invasive rectal squamous cell carcinoma - chemoradiation per Charlene protocol - capecitabine ordered today - rad onc consult today with Dr. Huitron - consult to regional oncology at [facility] - labs: DPYD testing done today 2. Colorectal cancer screening for family members - recommend starting at age 40 Thank you for the courtesy of this consultation. I spent 60 minutes on the date of this encounter providing and coordinating patient care including >50% of that time spent providing [id number] patient care. Caty Bowens MD GI Medical Oncologist [facility] [place] cc: I Dutch Cheung [address] [facility] [id number] documented in this encounterSamaritan North Health Center05-18-2021 History of Present illness Narrative* Mr. Luna is a 70 year old male referred by Dr. Long for evaluation regarding a left CPA lesion. * He reports 10 years of progressive hearing loss, left worse than right, now with no hearing in the left ear. * Hearing has been completely absent on the left for the past month, hearing loss was sudden while watching television. * He reports bilateral tinnitus, but denies otalgia, otorrhea, vertigo, history of ear infections or prior otologic surgery. * He has been following with his ENT infrequently for the past 10 years, and is currently using a right-sided ITE aid for the past 7-9 years. * He reports a sensation of imbalance for the past year, but no true vertiginous symptoms. * PMH: GERD, Arthritis, CAD, HLD, HTN, BPH * PSH: CABG, Prostate sx * SH: former smoker, occasional EtOH use * FH: Heart disease, emphysema [facility] Work Phone: Evaluation note* Diagnosis 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, unspecified site documented in this encounter [facility]* Diagnosis 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, unspecified site [facility]* Diagnosis Prostate cancer (HCC)- Primary Malignant neoplasm of prostate 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 documented [facility] this [facility]* Diagnosis Rectal malignant neoplasm (HCC)- Primary Malignant neoplasm of rectum 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 documented in this [facility]* Diagnosis Rectal malignant neoplasm (HCC)- Primary Malignant neoplasm of rectum documented in [facility]* Diagnosis 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, unspecified site documented [facility] this [facility] noteNo assessment information availableW[facility]* Diagnosis 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, unspecified site documented [facility]* Diagnosis 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, unspecified site documented [facility] this [facility]* Diagnosis Rectal malignant neoplasm (HCC)- Primary Malignant neoplasm of rectum Dysuria documented in [facility]* Diagnosis Rectal malignant neoplasm (HCC)- Primary Malignant neoplasm of rectum documented in [facility]* Diagnosis 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, unspecified site documented in this [facility]* Diagnosis 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, unspecified site [facility] Diagnosis 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, unspecified site [facility] Diagnosis 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, unspecified site [facility] Diagnosis Rectal malignant neoplasm (HCC)- Primary Malignant neoplasm of rectum Rectal malignant neoplasm (HCC)- Primary Malignant neoplasm of rectum [facility] Diagnosis 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, unspecified site [facility] Diagnosis Rectal malignant neoplasm (HCC)- Primary Malignant neoplasm of rectum [facility] Diagnosis 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, unspecified site [facility] Diagnosis Dysuria- Primary [facility]* Diagnosis 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, unspecified site [facility]* Diagnosis 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, unspecified site [facility] Diagnosis Radiotherapy follow-up- Primary Radiotherapy follow-up examination 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, unspecified site [facility]* Diagnosis Rectal cancer (HCC)- Primary Malignant neoplasm of rectum [facility] Diagnosis 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, unspecified site [facility] Diagnosis Squamous cell carcinoma of rectum (HCC)- Primary Malignant neoplasm of rectum [facility] Diagnosis Malignant neoplasm of rectum (HCC) Malignant neoplasm of rectum [facility] Diagnosis Rectal cancer (HCC)- Primary Malignant neoplasm of rectum [facility] Diagnosis Rectal cancer (HCC)- Primary Malignant neoplasm of rectum [facility] Pre-operative clearance- Primary Preoperative examination, unspecified documented [facility]* Diagnosis Pre-op evaluation- Primary Preoperative examination, unspecified Atherosclerosis of coronary artery bypass graft of [place] heart without angina pectoris Bilateral carotid artery stenosis Occlusion and stenosis of carotid artery without mention of cerebral infarction Primary hypertension Unspecified essential hypertension Shortness of breath Shortness of breath 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 Essential hypertension Unspecified essential hypertension 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 Dyslipidemia Other and unspecified hyperlipidemia [facility]* Diagnosis Rectal cancer (HCC) Malignant neoplasm of rectum Malignant neoplasm of rectum (HCC) Malignant neoplasm of rectum [facility]* Diagnosis Onset Date Resolution Status Dilated aortic root acute Atherosclerotic heart diseas e of [place] coronary artery without angina pectoris chronic Bilateral carotid artery stenosis chronic Dyslipidemia chronic Essential hypertension chron ic Peripheral vascular disease chronic [facility] Work Phone: Evaluation note* Diagnosis Rectal cancer (HCC)- Primary Malignant neoplasm of rectum [facility]* Diagnosis Anemia, unspecified type- Primary Pulmonary embolism and infarction (HCC) Other pulmonary embolism and infarction Hypokalemia Hypopotassemia 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) Ileostomy status Generalized weakness Other malaise and fatigue [facility] Diagnosis History of venous thromboembolism- Primary Personal history of venous thrombosis and embolism Presence of IVC filter Other postprocedural status Acute blood loss anemia Acute posthemorrhagic anemia Rectal cancer (HCC) Malignant neoplasm of rectum Compression neuropathy Mononeuritis of unspecified site [facility]* Diagnosis Postoperative state- Primary Other postprocedural status [facility]* Diagnosis 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)- Primary Attention to ileostomy [facility]* Diagnosis Rectal malignant neoplasm (HCC)- Primary Malignant neoplasm of rectum Malignant neoplasm of colon, unspecified part of colon (HCC) 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) Ileostomy status Bilateral pulmonary embolism (HCC) Other pulmonary embolism and infarction Blood loss Hemorrhage, unspecified Anemia, unspecified type Hyperlipidemia, unspecified hyperlipidemia type Special screening examination for viral disease Special screening examination for unspecified viral disease Encounter to establish care Other reasons for seeking consultation Encounter for therapeutic drug monitoring 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) Attention to ileostomy [facility] Encounter for therapeutic drug monitoring- Primary 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) Attention to ileostomy [facility] Diagnosis Serum potassium elevated- Primary Hyperpotassemia 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) Attention to ileostomy [facility]* Diagnosis Pre-op evaluation- Primary Preoperative examination, unspecified 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, unspecified whether [place] or transplanted heart (HCC) Pulmonary embolism and infarction (HCC) Other pulmonary embolism and infarction Bilateral carotid artery stenosis Occlusion and stenosis of carotid artery without mention of cerebral infarction 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)- Primary Attention to ileostomy 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) Attention to ileostomy [facility]* Diagnosis 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)- Primary Attention to ileostomy 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) Attention to ileostomy [facility]* Diagnosis History of rectal cancer- Primary Personal history of malignant neoplasm of rectum, rectosigmoid junction, and anus 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) Attention to ileostomy 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) Attention to ileostomy [facility]* Diagnosis History of pulmonary embolism- Primary Personal history of pulmonary embolism Personal history of DVT (deep vein thrombosis) Personal history of venous thrombosis and embolism Anticoagulation management encounter Encounter for therapeutic drug monitoring S/P IVC filter Other postprocedural status Preoperative vascular examination Other specified pre-operative examination Rectal cancer (HCC) Malignant neoplasm of rectum 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) Attention to ileostomy [facility]* Diagnosis 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) Attention to ileostomy Preoperative examination Preoperative examination, unspecified 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) Attention to ileostomy [facility] Diagnosis Iron deficiency anemia, unspecified iron deficiency anemia type- Primary 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) Ileostomy status History of hepatitis B Personal history of other infectious and parasitic disease History of anemia Personal history of diseases of blood and blood-forming organs Status post coronary artery bypass graft Postsurgical aortocoronary bypass status Dyslipidemia Other and unspecified hyperlipidemia 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) Attention to ileostomy [facility] Diagnosis Acute deep vein thrombosis (DVT) of proximal vein of left lower extremity (HCC)- Primary [facility]* Diagnosis Acute deep vein thrombosis (DVT) of proximal vein of left lower extremity (HCC)- Primary [facility]* Diagnosis Acute deep vein thrombosis (DVT) of proximal vein of left lower extremity (HCC)- Primary [facility]* Diagnosis Acute deep vein thrombosis (DVT) of proximal vein of left lower extremity (HCC)- Primary documented [facility]* Diagnosis Deep vein thrombosis (DVT) of both lower extremities, unspecified chronicity, unspecified vein (HCC)- Primary 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) Chronic venous embolism and thrombosis of deep vessels of distal lower extremity documented [facility] this [facility]* Diagnosis Deep vein thrombosis (DVT) of both lower extremities, unspecified chronicity, unspecified vein (HCC)- Primary Localized edema Edema [facility]* Diagnosis 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)- Primary S/P IVC filter Other postprocedural status 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 Long-term (current) use of anticoagulants Bruit of right carotid artery Atherosclerosis of aorta (HCC) Atherosclerosis of aorta documented [facility]* Diagnosis Acute deep vein thrombosis (DVT) of proximal vein of left lower extremity (HCC)- Primary documented in this encounter [facility] note* Diagnosis Acute deep vein thrombosis (DVT) of proximal vein of left lower extremity (HCC)- Primary [facility]* Diagnosis Acoustic neuroma ([facility]/HCC) Benign neoplasm of cranial nerves documented in this encounter [facility] Work Phone: Evaluation note* Diagnosis Acute deep vein thrombosis (DVT) of proximal vein of left lower extremity (HCC)- Primary [facility]* Diagnosis Left arm pain- Primary Pain in limb documented in this encounter [facility] note* Diagnosis Ingrown nail of great toe- Primary documented [facility]* Diagnosis Pain in left arm- Primary documented [facility]* Diagnosis Onset Date Resolution Status Dilated aortic root acute Atherosclerotic heart diseas e of [place] coronary artery without angina pectoris chronic Bilateral carotid artery stenosis chronic Dyslipidemia chronic Essential hypertension chron ic Peripheral vascular disease chronic 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 Claudication of left lower extremity chronic 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 [facility] Work Phone: Evaluation note* Diagnosis Pain in left arm documented in this encounter [facility] note* Diagnosis Primary osteoarthritis of left shoulder- Primary Primary localized osteoarthrosis, shoulder region Calcific tendinitis of left shoulder Calcifying tendinitis of shoulder [facility]* Diagnosis Rectal bleeding- Primary Hemorrhage of rectum and anus History of rectal cancer Colorectal anastomotic stricture documented in this encounter [facility] note* Diagnosis History of rectal cancer- Primary Personal history of malignant neoplasm of rectum, rectosigmoid junction, and anus documented in this encounter [facility] note* Diagnosis History of rectal cancer- Primary Personal history of malignant neoplasm of rectum, rectosigmoid junction, and anus documented in this encounter [facility] note* Diagnosis History of rectal cancer Personal history of malignant neoplasm of rectum, rectosigmoid junction, and anus History of rectal cancer- Primary Personal history of malignant neoplasm of rectum, rectosigmoid junction, and anus History of rectal cancer Personal history of malignant neoplasm of rectum, rectosigmoid junction, and anus documented [facility]* Diagnosis Preoperative examination- Primary Preoperative examination, unspecified History of rectal cancer Personal history of malignant neoplasm of rectum, rectosigmoid junction, and anus 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, unspecified whether [place] or transplanted heart (HCC) History of pulmonary embolism Personal history of pulmonary embolism Bilateral carotid artery stenosis Occlusion and stenosis of carotid artery without mention of cerebral infarction PVD (peripheral vascular disease) (HCC) Peripheral vascular disease, unspecified History of DVT (deep vein thrombosis) Personal history of venous thrombosis and embolism Rectal cancer (HCC) Malignant neoplasm of rectum History of rectal cancer Personal history of malignant neoplasm of rectum, rectosigmoid junction, and anus * Assessment & Plan Note - Linda Daley APRN.CNP - 09/22/2023 3:32 PM EDT Associated Problem(s): Rectal cancer (HCC) S/p chemoradiation and ileostomy placement 12/2019. * Assessment & Plan Note - Linda Daley APRN.CNP - 09/22/2023 3:30 PM EDT Associated Problem(s): History of DVT (deep vein thrombosis) History of PE and DVT provoked in setting of critical illness during hospitalization. Completed oACwith Warfarin 04/2022, advised ok to stop and continue ASA per vascular notes 04/2023. * Assessment & Plan Note - Linda Daley APRN.CNP - 09/22/2023 3:25 PM EDT Associated Problem(s): PVD (peripheral vascular disease) (HCC) Patient s/p left arm angiogram, IVUS aorta, subclavian/axillary, brachial, radial arteries angioplasty and stent of left subclavian artery 07/08/23. Completed by [facility]. [facility] at [facility] on Plavix and ASA. * Assessment & Plan Note - Linda Daley APRN.CNP - 09/22/2023 1:23 PM EDT Associated Problem(s): Bilateral carotid artery stenosis Ultrasound of carotid from June 2020 showed left internal and external carotid arteries with 50 to 69% stenosis. Patient denies any symptoms related to TIA or CVA. Follows with Vascular. * Assessment & Plan Note - Linda Daley APRN.CNP - 09/22/2023 1:22 PM EDT Associated Problem(s): History of pulmonary embolism History of PE and DVT provoked in setting of critical illness during hospitalization. Completed oACwith Warfarin 04/2022, advised ok to stop and continue ASA per vascular notes 04/2023. * Assessment & Plan Note - Linda Daley APRN.CNP - 09/22/2023 1:20 PM EDT Associated Problem(s): Atherosclerosis of coronary artery bypass graft S/p CABG in 1989 s/p PCI in 2017. On ASA. Most recent ECHO 03/2022, EF 78%. Follows with Cards, stable when last seen 04/2023. 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 Bilateral carotid artery stenosis Occlusion and stenosis of carotid artery without mention of cerebral infarction Status post coronary artery bypass graft Postsurgical aortocoronary bypass status Essential hypertension Unspecified essential hypertension Pre-operative examination Preoperative examination, unspecified Pre-op evaluation- Primary Preoperative examination, unspecified Atherosclerosis of coronary artery bypass graft of [place] heart without angina pectoris Bilateral carotid artery stenosis Occlusion and stenosis of carotid artery without mention of cerebral infarction Primary hypertension Unspecified essential hypertension Shortness of breath Shortness of breath 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 Essential hypertension Unspecified essential hypertension 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 Dyslipidemia Other and unspecified hyperlipidemia Intraabdominal hemorrhage- Primary Hemorrhage, unspecified Intraabdominal hemorrhage Hemorrhage, unspecified Pleural effusion Unspecified pleural effusion Other acute pulmonary embolism, unspecified whether acute cor pulmonale present (HCC) Hypotension, unspecified hypotension type Shock (HCC) Shock, unspecified Malnutrition of mild degree (HCC) Malnutrition of mild degree Rectal cancer (HCC) Malignant neoplasm of rectum Postoperative pain Other acute postoperative pain Status post coronary artery bypass graft Postsurgical aortocoronary bypass status Dyslipidemia Other and unspecified hyperlipidemia Respiratory insufficiency Other dyspnea and respiratory abnormality 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) Ileostomy status Hypophosphataemia Pulmonary embolism (HCC) Other pulmonary embolism and infarction Inadequate pain control Generalized pain Urinary retention Retention of urine, unspecified History of myocardial infarction Old myocardial infarction Pre-op evaluation- Primary Preoperative examination, unspecified 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, unspecified whether [place] or transplanted heart (HCC) Pulmonary embolism and infarction (HCC) Other pulmonary embolism and infarction Bilateral carotid artery stenosis Occlusion and stenosis of carotid artery without mention of cerebral infarction Preoperative examination- Primary Preoperative examination, unspecified History of rectal cancer Personal history of malignant neoplasm of rectum, rectosigmoid junction, and anus 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, unspecified whether [place] or transplanted heart (HCC) History of pulmonary embolism Personal history of pulmonary embolism Bilateral carotid artery stenosis Occlusion and stenosis of carotid artery without mention of cerebral infarction PVD (peripheral vascular disease) (HCC) Peripheral vascular disease, unspecified History of DVT (deep vein thrombosis) Personal history of venous thrombosis and embolism Rectal cancer (HCC) Malignant neoplasm of rectum 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)- Primary [facility]leostomy status [facility] Diagnosis 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 Bilateral carotid artery stenosis Occlusion and stenosis of carotid artery without mention of cerebral infarction Status post coronary artery bypass graft Postsurgical aortocoronary bypass status Essential hypertension Unspecified essential hypertension Pre-operative examination Preoperative examination, unspecified Pre-op evaluation- Primary Preoperative examination, unspecified Atherosclerosis of coronary artery bypass graft of [place] heart without angina pectoris Bilateral carotid artery stenosis Occlusion and stenosis of carotid artery without mention of cerebral infarction Primary hypertension Unspecified essential hypertension Shortness of breath Shortness of breath 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 Essential hypertension Unspecified essential hypertension 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 Dyslipidemia Other and unspecified hyperlipidemia Intraabdominal hemorrhage- Primary Hemorrhage, unspecified Intraabdominal hemorrhage Hemorrhage, unspecified Pleural effusion Unspecified pleural effusion Other acute pulmonary embolism, unspecified whether acute cor pulmonale present (HCC) Hypotension, unspecified hypotension type Shock (HCC) Shock, unspecified Malnutrition of mild degree (HCC) Malnutrition of mild degree Rectal cancer (HCC) Malignant neoplasm of rectum Postoperative pain Other acute postoperative pain Status post coronary artery bypass graft Postsurgical aortocoronary bypass status Dyslipidemia Other and unspecified hyperlipidemia Respiratory insufficiency Other dyspnea and respiratory abnormality 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) Ileostomy status Hypophosphataemia Pulmonary embolism (HCC) Other pulmonary embolism and infarction Inadequate pain control Generalized pain Urinary retention Retention of urine, unspecified History of myocardial infarction Old myocardial infarction Pre-op evaluation- Primary Preoperative examination, unspecified 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, unspecified whether [place] or transplanted heart (HCC) Pulmonary embolism and infarction (HCC) Other pulmonary embolism and infarction Bilateral carotid artery stenosis Occlusion and stenosis of carotid artery without mention of cerebral infarction Preoperative examination- Primary Preoperative examination, unspecified History of rectal cancer Personal history of malignant neoplasm of rectum, rectosigmoid junction, and anus 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, unspecified whether [place] or transplanted heart (HCC) History of pulmonary embolism Personal history of pulmonary embolism Bilateral carotid artery stenosis Occlusion and stenosis of carotid artery without mention of cerebral infarction PVD (peripheral vascular disease) (HCC) Peripheral vascular disease, unspecified History of DVT (deep vein thrombosis) Personal history of venous thrombosis and embolism Rectal cancer (HCC) Malignant neoplasm of rectum Chronic left shoulder pain- Primary Pain in joint, shoulder region [facility] 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 Bilateral carotid artery stenosis Occlusion and stenosis of carotid artery without mention of cerebral infarction Status post coronary artery bypass graft Postsurgical aortocoronary bypass status Essential hypertension Unspecified essential hypertension Pre-operative examination Preoperative examination, unspecified Pre-op evaluation- Primary Preoperative examination, unspecified Atherosclerosis of coronary artery bypass graft of [place] heart without angina pectoris Bilateral carotid artery stenosis Occlusion and stenosis of carotid artery without mention of cerebral infarction Primary hypertension Unspecified essential hypertension Shortness of breath Shortness of breath 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 Essential hypertension Unspecified essential hypertension 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 Dyslipidemia Other and unspecified hyperlipidemia Intraabdominal hemorrhage- Primary Hemorrhage, unspecified Intraabdominal hemorrhage Hemorrhage, unspecified Pleural effusion Unspecified pleural effusion Other acute pulmonary embolism, unspecified whether acute cor pulmonale present (HCC) Hypotension, unspecified hypotension type Shock (HCC) Shock, unspecified Malnutrition of mild degree (HCC) Malnutrition of mild degree Rectal cancer (HCC) Malignant neoplasm of rectum Postoperative pain Other acute postoperative pain Status post coronary artery bypass graft Postsurgical aortocoronary bypass status Dyslipidemia Other and unspecified hyperlipidemia Respiratory insufficiency Other dyspnea and respiratory abnormality 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) Ileostomy status Hypophosphataemia Pulmonary embolism (HCC) Other pulmonary embolism and infarction Inadequate pain control Generalized pain Urinary retention Retention of urine, unspecified History of myocardial infarction Old myocardial infarction Pre-op evaluation- Primary Preoperative examination, unspecified 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, unspecified whether [place] or transplanted heart (HCC) Pulmonary embolism and infarction (HCC) Other pulmonary embolism and infarction Bilateral carotid artery stenosis Occlusion and stenosis of carotid artery without mention of cerebral infarction Preoperative examination- Primary Preoperative examination, unspecified History of rectal cancer Personal history of malignant neoplasm of rectum, rectosigmoid junction, and anus 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, unspecified whether [place] or transplanted heart (HCC) History of pulmonary embolism Personal history of pulmonary embolism Bilateral carotid artery stenosis Occlusion and stenosis of carotid artery without mention of cerebral infarction PVD (peripheral vascular disease) (HCC) Peripheral vascular disease, unspecified History of DVT (deep vein thrombosis) Personal history of venous thrombosis and embolism Rectal cancer (HCC) Malignant neoplasm of rectum Cervical radiculopathy- Primary Brachial neuritis or radiculitis nos Spinal stenosis in cervical region Protrusion of cervical intervertebral disc Pre-op evaluation Preoperative examination, unspecified Status post coronary artery bypass graft Postsurgical aortocoronary bypass status PVD (peripheral vascular disease) (HCC) Peripheral vascular disease, unspecified History of DVT (deep vein thrombosis) Personal history of venous thrombosis and embolism [facility] Acoustic neuroma (Multi) Benign neoplasm of cranial nerves documented in this encounter [facility] Work Phone: Evaluation note* Diagnosis 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 Bilateral carotid artery stenosis Occlusion and stenosis of carotid artery without mention of cerebral infarction Status post coronary artery bypass graft Postsurgical aortocoronary bypass status Essential hypertension Unspecified essential hypertension Pre-operative examination Preoperative examination, unspecified Pre-op evaluation- Primary Preoperative examination, unspecified Atherosclerosis of coronary artery bypass graft of [place] heart without angina pectoris Bilateral carotid artery stenosis Occlusion and stenosis of carotid artery without mention of cerebral infarction Primary hypertension Unspecified essential hypertension Shortness of breath Shortness of breath 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 Essential hypertension Unspecified essential hypertension 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 Dyslipidemia Other and unspecified hyperlipidemia Intraabdominal hemorrhage- Primary Hemorrhage, unspecified Intraabdominal hemorrhage Hemorrhage, unspecified Pleural effusion Unspecified pleural effusion Other acute pulmonary embolism, unspecified whether acute cor pulmonale present (HCC) Hypotension, unspecified hypotension type Shock (HCC) Shock, unspecified Malnutrition of mild degree (HCC) Malnutrition of mild degree Rectal cancer (HCC) Malignant neoplasm of rectum Postoperative pain Other acute postoperative pain Status post coronary artery bypass graft Postsurgical aortocoronary bypass status Dyslipidemia Other and unspecified hyperlipidemia Respiratory insufficiency Other dyspnea and respiratory abnormality 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) Ileostomy status Hypophosphataemia Pulmonary embolism (HCC) Other pulmonary embolism and infarction Inadequate pain control Generalized pain Urinary retention Retention of urine, unspecified History of myocardial infarction Old myocardial infarction Pre-op evaluation- Primary Preoperative examination, unspecified 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, unspecified whether [place] or transplanted heart Pulmonary embolism and infarction (HCC) Other pulmonary embolism and infarction Bilateral carotid artery stenosis Occlusion and stenosis of carotid artery without mention of cerebral infarction Preoperative examination- Primary Preoperative examination, unspecified History of rectal cancer Personal history of malignant neoplasm of rectum, rectosigmoid junction, and anus 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, unspecified whether [place] or transplanted heart History of pulmonary embolism Personal history of pulmonary embolism Bilateral carotid artery stenosis Occlusion and stenosis of carotid artery without mention of cerebral infarction PVD (peripheral vascular disease) Peripheral vascular disease, unspecified History of DVT (deep vein thrombosis) Personal history of venous thrombosis and embolism Rectal cancer (HCC) Malignant neoplasm of rectum Spinal stenosis of lumbar region with neurogenic claudication- Primary Spinal stenosis, lumbar region, with neurogenic claudication Lumbar radiculopathy Thoracic or lumbosacral neuritis or radiculitis, unspecified Pain in both lower extremities Bilateral lower extremity edema Edema Presence of ileostomy (HCC) [facility] Diagnosis 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 Bilateral carotid artery stenosis Occlusion and stenosis of carotid artery without mention of cerebral infarction Status post coronary artery bypass graft Postsurgical aortocoronary bypass status Essential hypertension Unspecified essential hypertension Pre-operative examination Preoperative examination, unspecified Pre-op evaluation- Primary Preoperative examination, unspecified Atherosclerosis of coronary artery bypass graft of [place] heart without angina pectoris Bilateral carotid artery stenosis Occlusion and stenosis of carotid artery without mention of cerebral infarction Primary hypertension Unspecified essential hypertension Shortness of breath Shortness of breath 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 Essential hypertension Unspecified essential hypertension 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 Dyslipidemia Other and unspecified hyperlipidemia Intraabdominal hemorrhage- Primary Hemorrhage, unspecified Intraabdominal hemorrhage Hemorrhage, unspecified Pleural effusion Unspecified pleural effusion Other acute pulmonary embolism, unspecified whether acute cor pulmonale present (HCC) Hypotension, unspecified hypotension type Shock (HCC) Shock, unspecified Malnutrition of mild degree (HCC) Malnutrition of mild degree Rectal cancer (HCC) Malignant neoplasm of rectum Postoperative pain Other acute postoperative pain Status post coronary artery bypass graft Postsurgical aortocoronary bypass status Dyslipidemia Other and unspecified hyperlipidemia Respiratory insufficiency Other dyspnea and respiratory abnormality 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) Ileostomy status Hypophosphataemia Pulmonary embolism (HCC) Other pulmonary embolism and infarction Inadequate pain control Generalized pain Urinary retention Retention of urine, unspecified History of myocardial infarction Old myocardial infarction Pre-op evaluation- Primary Preoperative examination, unspecified 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, unspecified whether [place] or transplanted heart Pulmonary embolism and infarction (HCC) Other pulmonary embolism and infarction Bilateral carotid artery stenosis Occlusion and stenosis of carotid artery without mention of cerebral infarction Preoperative examination- Primary Preoperative examination, unspecified History of rectal cancer Personal history of malignant neoplasm of rectum, rectosigmoid junction, and anus 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, unspecified whether [place] or transplanted heart History of pulmonary embolism Personal history of pulmonary embolism Bilateral carotid artery stenosis Occlusion and stenosis of carotid artery without mention of cerebral infarction PVD (peripheral vascular disease) Peripheral vascular disease, unspecified History of DVT (deep vein thrombosis) Personal history of venous thrombosis and embolism Rectal cancer (HCC) Malignant neoplasm of rectum Skin ulcer of abdomen, with fat layer exposed (HCC)- Primary 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, unspecified site [facility] Diagnosis 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 Bilateral carotid artery stenosis Occlusion and stenosis of carotid artery without mention of cerebral infarction Status post coronary artery bypass graft Postsurgical aortocoronary bypass status Essential hypertension Unspecified essential hypertension Pre-operative examination Preoperative examination, unspecified Pre-op evaluation- Primary Preoperative examination, unspecified Atherosclerosis of coronary artery bypass graft of [place] heart without angina pectoris Bilateral carotid artery stenosis Occlusion and stenosis of carotid artery without mention of cerebral infarction Primary hypertension Unspecified essential hypertension Shortness of breath Shortness of breath 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 Essential hypertension Unspecified essential hypertension 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 Dyslipidemia Other and unspecified hyperlipidemia Intraabdominal hemorrhage- Primary Hemorrhage, unspecified Intraabdominal hemorrhage Hemorrhage, unspecified Pleural effusion Unspecified pleural effusion Other acute pulmonary embolism, unspecified whether acute cor pulmonale present (HCC) Hypotension, unspecified hypotension type Shock (HCC) Shock, unspecified Malnutrition of mild degree (HCC) Malnutrition of mild degree Rectal cancer (HCC) Malignant neoplasm of rectum Postoperative pain Other acute postoperative pain Status post coronary artery bypass graft Postsurgical aortocoronary bypass status Dyslipidemia Other and unspecified hyperlipidemia Respiratory insufficiency Other dyspnea and respiratory abnormality 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) Ileostomy status Hypophosphataemia Pulmonary embolism (HCC) Other pulmonary embolism and infarction Inadequate pain control Generalized pain Urinary retention Retention of urine, unspecified History of myocardial infarction Old myocardial infarction Pre-op evaluation- Primary Preoperative examination, unspecified 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, unspecified whether [place] or transplanted heart Pulmonary embolism and infarction (HCC) Other pulmonary embolism and infarction Bilateral carotid artery stenosis Occlusion and stenosis of carotid artery without mention of cerebral infarction Preoperative examination- Primary Preoperative examination, unspecified History of rectal cancer Personal history of malignant neoplasm of rectum, rectosigmoid junction, and anus 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, unspecified whether [place] or transplanted heart History of pulmonary embolism Personal history of pulmonary embolism Bilateral carotid artery stenosis Occlusion and stenosis of carotid artery without mention of cerebral infarction PVD (peripheral vascular disease) Peripheral vascular disease, unspecified History of DVT (deep vein thrombosis) Personal history of venous thrombosis and embolism Rectal cancer (HCC) Malignant neoplasm of rectum 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)- Primary Attention to ileostomy [facility] Diagnosis 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 Bilateral carotid artery stenosis Occlusion and stenosis of carotid artery without mention of cerebral infarction Status post coronary artery bypass graft Postsurgical aortocoronary bypass status Essential hypertension Unspecified essential hypertension Pre-operative examination Preoperative examination, unspecified Pre-op evaluation- Primary Preoperative examination, unspecified Atherosclerosis of coronary artery bypass graft of [place] heart without angina pectoris Bilateral carotid artery stenosis Occlusion and stenosis of carotid artery without mention of cerebral infarction Primary hypertension Unspecified essential hypertension Shortness of breath Shortness of breath 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 Essential hypertension Unspecified essential hypertension 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 Dyslipidemia Other and unspecified hyperlipidemia Intraabdominal hemorrhage- Primary Hemorrhage, unspecified Intraabdominal hemorrhage Hemorrhage, unspecified Pleural effusion Unspecified pleural effusion Other acute pulmonary embolism, unspecified whether acute cor pulmonale present (HCC) Hypotension, unspecified hypotension type Shock (HCC) Shock, unspecified Malnutrition of mild degree (HCC) Malnutrition of mild degree Rectal cancer (HCC) Malignant neoplasm of rectum Postoperative pain Other acute postoperative pain Status post coronary artery bypass graft Postsurgical aortocoronary bypass status Dyslipidemia Other and unspecified hyperlipidemia Respiratory insufficiency Other dyspnea and respiratory abnormality 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) Ileostomy status Hypophosphataemia Pulmonary embolism (HCC) Other pulmonary embolism and infarction Inadequate pain control Generalized pain Urinary retention Retention of urine, unspecified History of myocardial infarction Old myocardial infarction Pre-op evaluation- Primary Preoperative examination, unspecified 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, unspecified whether [place] or transplanted heart Pulmonary embolism and infarction (HCC) Other pulmonary embolism and infarction Bilateral carotid artery stenosis Occlusion and stenosis of carotid artery without mention of cerebral infarction Preoperative examination- Primary Preoperative examination, unspecified History of rectal cancer Personal history of malignant neoplasm of rectum, rectosigmoid junction, and anus 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, unspecified whether [place] or transplanted heart History of pulmonary embolism Personal history of pulmonary embolism Bilateral carotid artery stenosis Occlusion and stenosis of carotid artery without mention of cerebral infarction PVD (peripheral vascular disease) Peripheral vascular disease, unspecified History of DVT (deep vein thrombosis) Personal history of venous thrombosis and embolism Rectal cancer (HCC) Malignant neoplasm of rectum 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)- Primary Attention to ileostomy [facility] Diagnosis 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 Bilateral carotid artery stenosis Occlusion and stenosis of carotid artery without mention of cerebral infarction Status post coronary artery bypass graft Postsurgical aortocoronary bypass status Essential hypertension Unspecified essential hypertension Pre-operative examination Preoperative examination, unspecified Pre-op evaluation- Primary Preoperative examination, unspecified Atherosclerosis of coronary artery bypass graft of [place] heart without angina pectoris Bilateral carotid artery stenosis Occlusion and stenosis of carotid artery without mention of cerebral infarction Primary hypertension Unspecified essential hypertension Shortness of breath Shortness of breath 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 Essential hypertension Unspecified essential hypertension 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 Dyslipidemia Other and unspecified hyperlipidemia Intraabdominal hemorrhage- Primary Hemorrhage, unspecified Intraabdominal hemorrhage Hemorrhage, unspecified Pleural effusion Unspecified pleural effusion Other acute pulmonary embolism, unspecified whether acute cor pulmonale present (HCC) Hypotension, unspecified hypotension type Shock (HCC) Shock, unspecified Malnutrition of mild degree (HCC) Malnutrition of mild degree Rectal cancer (HCC) Malignant neoplasm of rectum Postoperative pain Other acute postoperative pain Status post coronary artery bypass graft Postsurgical aortocoronary bypass status Dyslipidemia Other and unspecified hyperlipidemia Respiratory insufficiency Other dyspnea and respiratory abnormality 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) Ileostomy status Hypophosphataemia Pulmonary embolism (HCC) Other pulmonary embolism and infarction Inadequate pain control Generalized pain Urinary retention Retention of urine, unspecified History of myocardial infarction Old myocardial infarction Pre-op evaluation- Primary Preoperative examination, unspecified 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, unspecified whether [place] or transplanted heart Pulmonary embolism and infarction (HCC) Other pulmonary embolism and infarction Bilateral carotid artery stenosis Occlusion and stenosis of carotid artery without mention of cerebral infarction Preoperative examination- Primary Preoperative examination, unspecified History of rectal cancer Personal history of malignant neoplasm of rectum, rectosigmoid junction, and anus 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, unspecified whether [place] or transplanted heart History of pulmonary embolism Personal history of pulmonary embolism Bilateral carotid artery stenosis Occlusion and stenosis of carotid artery without mention of cerebral infarction PVD (peripheral vascular disease) Peripheral vascular disease, unspecified History of DVT (deep vein thrombosis) Personal history of venous thrombosis and embolism Rectal cancer (HCC) Malignant neoplasm of rectum Tendonitis- Primary Enthesopathy of unspecified site Muscle tightness Unspecified disorder of muscle, ligament, and fascia Spinal stenosis of lumbar region without neurogenic claudication Spinal stenosis, lumbar region, without neurogenic claudication History of malignant neoplasm of rectum Personal history of malignant neoplasm of rectum, rectosigmoid junction, and anus Presence of ileostomy (HCC) [facility]* Mr. 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 * In the last visit, I recommended that he start using bicross hearing aids, which he has been doing.He is very happy with his hearing result. He denies any dizziness or facial spasms. His right ear, which is his better-hearing ear, has not had any changes in hearing. [id number] [id number] Work Phone: Patient's home Plan of care note* Visit Details Visit Type -SN SOC Discipline -Senior Care Problems Problem Description Start Date Status Goals Interve ntions Medication Education Disciplines: Skilled Services 01/30/2022 Active 1 goal linked to scheduled/documen deyanira intervention 1 goal intervention scheduled/document ed in this visit Cancer Disciplines: Skilled Services 01/30/2022 Active 1 goal linked to scheduled/documen deyanira intervention 1 goal intervention scheduled/document ed in this visit Physician Specific Parameters Disciplines: Skilled Services 01/30/2022 Active 1 goal linked to scheduled/documen deyanira intervention 1 goal intervention scheduled/document ed in this visit Risk for Falls Disciplines: Skilled Services 01/30/2022 Active 1 goal linked to scheduled/documen deyanira intervention 1 goal intervention scheduled/document ed in this visit Pain Disciplines: Skilled Services 01/30/2022 Active 1 goal linked to scheduled/documen deyanira intervention 1 goal intervention scheduled/document ed in this visit Nutrition/Hydration Disciplines: Skilled Services 01/30/2022 Active 1 goal linked to scheduled/documen deyanira intervention 1 goal intervention scheduled/document ed in this visit SN Integumentary/Wound s Disciplines: SN 01/30/2022 Active 1 goal linked to scheduled/documen deyanira intervention 2 goal interventions scheduled/document ed in this visit SN Cardiovascular Condition Disciplines: SN 01/30/2022 Active 1 goal linked to scheduled/documen deyanira intervention 1 goal intervention scheduled/document ed in this visit SN Learning Assessment Disciplines: SN 01/30/2022 Active 1 goal linked to scheduled/documen deyanira intervention 1 goal intervention scheduled/document ed in this visit SN Gastrointestinal Disciplines: SN 01/30/2022 Active 1 goal linked to scheduled/documen deyanira intervention 2 goal interventions scheduled/document ed in this visit Goals Goal Associated Problem Outcome Goal Met? Visit Notes Patient/caregiver will demonstrate ability to obtain, store, identify and administer ordered medications, keep accurate medication list in home, and adhere to medication schedule Description: Patient/caregiver will demonstrate ability to obtain, store, identify and administer ordered medications, keep accurate medication list in home, and adhere to medication schedule by 02/27/22. Medication Education No Improve symptom management of cancer and side effects of treatment Description: Patient/caregiver will verbalize understanding of cancer diagnosis, side effects of treatment, and management of symptoms by 02/27/22. Cancer No Patient to maintain parameters within physician-specified ranges throughout certification period Physician Specific Parameters No Manage Risk for falls Description: Patient/caregiver will verbalize knowledge of individualized fall prevention strategies by 02/27/22. Risk for Falls No Manage Pain Description: Patient/caregiver will verbalize knowledge and understanding of appropriate techniques to control pain, including non-pharmacological techniques. Patient will verbalize or demonstrate an acceptable level of pain as evidenced by a pain score of <4/10 and improvement in ability to perform activities of daily living to be achieved by 02/27/22. Pain No Manage Nutrition/Hydration Description: Patient/caregiver will verbalize/demonstrate knowledge of prescribed diet and/or healthy nutrition to be achieved by 02/27/22. Nutrition/Hydration No Patient/Caregiver will have improved healing and be free of signs and symptoms of complications Description: Patient/caregiver will verbalize management strategies to promote wound healing & prevent complications as evidenced by improved healing & no complications by 02/27/22. SN Integumentary/Wounds No Improved management of cardiovascular disease Description: Improve patient/caregiver management of cardiac disease as evidenced by patient/caregiver ability to teach back cardiac management strategies by 02/27/22. SN Cardiovascular Condition No Demonstrate understanding of education Description: Patient and/or caregiver will verbalize understanding of educational instruction provided throughout certification period. SN Learning Assessment No Improved management of GI disease/condition Description: Patient/Caregiver will demonstrate understanding of GI education as evidenced by improved management of gastrointestinal disease/condition by 02/27/22. SN Gastrointestinal No Interventions Intervention Associated Problem/Goal Status Variance Visit Notes Medication Education Description: Evaluate/instruct patient/caregiver on obtaining, storing, identifying and administering ordered medications as well as keeping accurate medication list in the home and adhereing to medication schedule Problem:Medication Education Goal:Patient/caregiver will demonstrate ability to obtain, store, identify and administer ordered medications, keep accurate medication list in home, and adhere to medication schedule Completed Patient instructed on adhering to medication schedule and Medication, route, dose, frequency, purpose, and side effects of all medications. Instruct patient/caregiver on cancer diagnosis, side effects of treatment, and management of symptoms Description: Instruct patient/caregiver on rectal cancer diagnosis, side effects of treatment and management of symptoms. Problem:Cancer Goal:Improve symptom management of cancer and side effects of treatment Completed Patient instructed on cancer disease process. SPO2 Description: Notify Dr. Cheung if pulse ox is <92% at rest. Problem:Physician Specific Parameters Goal:Patient to maintain parameters within physician-specified ranges throughout certification period Completed Instruct on individual fall risk factors and strategies to prevent falls and injuries caused by falls. Problem:Risk for Falls Goal:Manage Risk for falls Completed SN: Patient and Caregiver instructed on Eliminating Environmental Hazards: Keep pathways clear and Keep rooms and walkways well lit Managing Impaired Functional Mobility: Caregiver to provide assist with: ADL/IADLs Instruct on pain and instruct on strategies to control pain Problem:Pain Goal:Manage Pain Completed patient instructed on techniques to control pain including Pharmacological measures and Non-Pharmacological measures; rest and positioning/elevation. Define patient s appetite/hydration status and implement strategies to improve compliance with prescribed diet and/or healthy nutrition. Problem:Nutrition/Hydr ation Goal:Manage Nutrition/Hydration Completed instructed patient and caregiver on implementing strategies to comply with prescribed diet, healthy nutrition and adequate hydration Instruct patient/caregiver healing process and management measures to promote healing and avoid complications Problem:SN Integumentary/Wounds Goal:Patient/Caregiver will have improved healing and be free of signs and symptoms of complications Completed patient instructed on the following: healing process, signs and symptoms of infection, importance of good nutrition and when to report symptoms. Instruct Patient/Caregiver on wound/incision care procedure as ordered by physician Description: All lap sites open to air, allow steristrips to fall off their own. Previous MARCO drain site open to air, may cover with gauze as needed for drainage. Problem:SN Integumentary/Wounds Goal:Patient/Caregiver will have improved healing and be free of signs and symptoms of complications Completed patient instructed on wound care as ordered by Physician. Instruct on cardiovascular disease process and management of condition Description: Patient has following cardiac diagnosis(es): Hypertension and CAD. Problem:SN Cardiovascular Condition Goal:Improved management of cardiovascular disease Completed patient instructed on self monitoring & symptom reporting. Instruct and educate on knowledge deficits Problem:SN Learning Assessment Goal:Demonstrate understanding of education Completed patient and caregiver verbalize and/or demonstrate understanding of nursing education completed today. Education methods include: verbal cues, tactile cues, written instructions, visual cues and teach back. Further education required to improve knowledge and compliance with cancer care management, cardiac disease management, fall prevention/home safety strategies, gastrointestinal care management, hematological care management, incision/wound care management, medication management, nutrition, ostomy care management and pain management. Ostomy: Complete Pouch Change Description: Pouch to be changed: 2x a week and PRN. Pouch procedure: Remove old pouch, complete peristomal care, use powder, barrier ring, barrier strips, one piece and convex, adjust ostomy procedure as needed for leaking/fit complications. Problem:SN Gastrointestinal Goal:Improved management of GI disease/condition Completed Ostomy: Instruct Patient/Caregiver on Ostomy management Problem:SN Gastrointestinal Goal:Improved management of GI disease/condition Completed patient instructed on the following: emptying and rinsing pouch, pouch removal, pouch change, disposal of used pouch and appliance, peristomal skin care and ostomy precautions. [facility] Visit Details Visit Type -SN SOC Discipline -Senior Care Problems Problem Description Start Date Status Goals Interve ntions Medication Education Disciplines: Skilled Services 02/25/2022 Active 1 goal linked to scheduled/documen deyanira intervention 1 goal intervention scheduled/document ed in this visit Sepsis Disciplines: Skilled Services 02/25/2022 Active 1 goal linked to scheduled/documen deyanira intervention 1 goal intervention scheduled/document ed in this visit Cancer Disciplines: Skilled Services 02/25/2022 Active 1 goal linked to scheduled/documen deyanira intervention 1 goal intervention scheduled/document ed in this visit Declined Referral Disciplines: Skilled Services 02/25/2022 Active 1 goal linked to scheduled/documen deyanira intervention 1 goal intervention scheduled/document ed in this visit Risk for skin breakdown Disciplines: Skilled Services 02/25/2022 Active 1 goal linked to scheduled/documen deyanira intervention 1 goal intervention scheduled/document ed in this visit Physician Specific Parameters Disciplines: Skilled Services 02/25/2022 Active 1 goal linked to scheduled/documen deyanira intervention 1 goal intervention scheduled/document ed in this visit Risk for Falls Disciplines: Skilled Services 02/25/2022 Active 1 goal linked to scheduled/documen deyanira intervention 1 goal intervention scheduled/document ed in this visit Pain Disciplines: Skilled Services 02/25/2022 Active 1 goal linked to scheduled/documen deyanira intervention 1 goal intervention scheduled/document ed in this visit Nutrition/Hydration Disciplines: Skilled Services 02/25/2022 Active 1 goal linked to scheduled/documen deyanira intervention 1 goal intervention scheduled/document ed in this visit Advance Directives Disciplines: Skilled Services 02/25/2022 Active 1 goal linked to scheduled/documen deyanira intervention 1 goal intervention scheduled/document ed in this visit SN Edema Disciplines: SN 02/25/2022 Active 1 goal linked to scheduled/documen deyanira intervention 1 goal intervention scheduled/document ed in this visit SN Integumentary/Wound s Disciplines: SN 02/25/2022 Active 1 goal linked to scheduled/documen deyanira intervention 3 goal interventions scheduled/document ed in this visit SN Learning Assessment Disciplines: SN 02/25/2022 Active 1 goal linked to scheduled/documen deyanira intervention 1 goal intervention scheduled/document ed in this visit SN Gastrointestinal Disciplines: SN 02/25/2022 Active 1 goal linked to scheduled/documen deyanira intervention 2 goal interventions scheduled/document ed in this visit SN Cardiovascular Condition Disciplines: SN 02/25/2022 Active 1 goal linked to scheduled/documen deyanira intervention 1 goal intervention scheduled/document ed in this visit SN Respiratory Disease Disciplines: 02/25/2022 Active 1 goal linked to scheduled/documen deyanira intervention 1 goal intervention scheduled/document ed in this visit Goals Goal Associated Problem Outcome Goal Met? Visit Notes Patient/caregiver will demonstrate ability to obtain, store, identify and administer ordered medications, keep accurate medication list in home, and adhere to medication schedule Description: Patient/caregiver will demonstrate ability to obtain, store, identify and administer ordered medications, keep accurate medication list in home, and adhere to medication schedule by 04/25/22. Medication Education No Patient/caregiver will be able to identify and report symptoms of sepsis Description: Patient/caregiver will be able to identify signs/symptoms of sepsis infection and will verbalize actions to take if suspected by 04/25/22. Sepsis No Improve symptom management of cancer and side effects of treatment Description: Patient/caregiver will verbalize understanding of cancer diagnosis, side effects of treatment, and management of symptoms by 04/25/22. Cancer No Patient has declined referred services Declined Referral No Manage risk for skin breakdown Description: Patient/caregiver will verbalize and demonstrate understanding of the risks and measures to be taken to monitor and prevent skin breakdown by 04/25/22. Risk for skin breakdown No Patient to maintain parameters within physician-specified ranges throughout certification period Physician Specific Parameters No Manage Risk for falls Description: Patient/caregiver will verbalize knowledge of individualized fall prevention strategies by 04/25/22. Risk for Falls No Manage Pain Description: Patient/caregiver will verbalize knowledge and understanding of appropriate techniques to control pain, including pain medication and non-pharmacological techniques. Patient will verbalize or demonstrate an acceptable level of pain as evidenced by a pain score of 0-3/10 and improvement in ability to perform activities of daily living to be achieved by 04/25/22. Pain No Manage Nutrition/Hydration Description: Patient/caregiver will verbalize/demonstrate knowledge of prescribed diet and/or healthy nutrition to be achieved by 04/25/22. Nutrition/Hydration No Patient/caregiver will make healthcare providers aware of and any changes to Advance Directives throughout certification period Advance Directives No Patient will have improved edema management Description: Patient/caregiver will demonstrate an understanding of edema management strategies as evidenced by resolution or stabilization of edema by 04/11/22. SN Edema No Patient/Caregiver will have improved healing and be free of signs and symptoms of complications Description: Patient/caregiver will verbalize management strategies to promote wound healing & prevent complications as evidenced by improved healing & no complications by 04/11/22. SN Integumentary/Wounds No Demonstrate understanding of education Description: Patient and/or caregiver will verbalize understanding of educational instruction provided throughout certification period. SN Learning Assessment No Improved management of GI disease/condition Description: Patient/Caregiver will demonstrate understanding of GI education as evidenced by improved management of gastrointestinal disease/condition by 04/11/22. SN Gastrointestinal No Improved management of cardiovascular disease Description: Improve patient/caregiver management of cardiac disease as evidenced by patient/caregiver ability to teach back cardiac management strategies by 04/11/22. SN Cardiovascular Condition No Improved management of respiratory condition Description: Improve respiratory management as evidenced by patient/caregiver's ability to teach back strategies for improving respiratory status by 04/11/22. SN Respiratory Disease No Interventions Intervention Associated Problem/Goal Status Variance Visit Notes Medication Education Description: Evaluate/instruct patient/caregiver on obtaining, storing, identifying and administering ordered medications as well as keeping accurate medication list in the home and adhereing to medication schedule Problem:Medication Education Goal:Patient/caregiver will demonstrate ability to obtain, store, identify and administer ordered medications, keep accurate medication list in home, and adhere to medication schedule Completed Patient instructed on importance of keeping accurate medication list in home, adhering to medication schedule and proper storage of medications. Risk of Sepsis Description: Patient is at risk for sepsis. Monitor closely for s/s of sepsis. Problem:Sepsis Goal:Patient/caregiver will be able to identify and report symptoms of sepsis Completed Instruct patient/caregiver on cancer diagnosis, side effects of treatment, and management of symptoms Description: Instruct patient/caregiver on rectal cancer diagnosis, side effects of treatment and management of symptoms. Problem:Cancer Goal:Improve symptom management of cancer and side effects of treatment Completed Patient instructed on cancer disease process, management of treatment side effects and management of cancer symptoms. Patient/caregiver declined OT services Problem:Declined Referral Goal:Patient has declined referred services Completed Instruct on the risks and measures to be taken to prevent skin breakdown Description: Patient's Claude Score is: at risk. A Claude score <= to 18 indicates risk for skin breakdown. Problem:Risk for skin breakdown Goal:Manage risk for skin breakdown Completed patient instructed on maintaining skin integrity including: The need for every 1-2 hour turns, position changes, and maintaining activity as tolerated, Reducing risk of friction and shear, including use of draw sheet as appropriate and Elevating and protecting heels Evaluation for pressure reduction surfaces completed for chair . SPO2 Description: Notify Dr. Cheung if pulse ox is <92% at rest. Problem:Physician Specific Parameters Goal:Patient to maintain parameters within physician-specified ranges throughout certification period Completed Instruct on individual fall risk factors and strategies to prevent falls and injuries caused by falls. Problem:Risk for Falls Goal:Manage Risk for falls Completed SN: Patient instructed on Eliminating Environmental Hazards: Keep pathways clear, Remove unsafe rugs, Wear supportive shoes or non-skid socks and Keep frequently used items within reach Instruct on pain and instruct on strategies to control pain Problem:Pain Goal:Manage Pain Completed patient instructed on techniques to control pain including Pharmacological measures and Non-Pharmacological measures; rest, positioning/elevation and mobility/therapeutic exercise. Define patient s appetite/hydration status and implement strategies to improve compliance with prescribed diet and/or healthy nutrition. Problem:Nutrition/Hydr ation Goal:Manage Nutrition/Hydration Completed instructed patient on implementing strategies to comply with prescribed diet, healthy nutrition and adequate hydration Determine patient's Advance Directive Status Description: Patient does have advanced directives, living will and helathcare DPOA available in home Problem:Advance Directives Goal:Patient/caregiver will make healthcare providers aware of and any changes to Advance Directives throughout certification period Completed Discussed Advance Directives with Patient and/or Caregiver. Referred patient to Home Care handbook for further information on Healthcare DPOA & Living Will. Assess and instruct on measures to reduce edema Problem:SN Edema Goal:Patient will have improved edema management Completed patient instructed on elevation and diet. 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 Measure wound/incision at least weekly. Okay to substitute comparable products from home care formulary. Problem:SN Integumentary/Wounds Goal:Patient/Caregiver will have improved healing and be free of signs and symptoms of complications Completed Completed by SN. Patient did tolerate well. Instruct patient/caregiver healing process and management measures to promote healing and avoid complications Problem:SN Integumentary/Wounds Goal:Patient/Caregiver will have improved healing and be free of signs and symptoms of complications Completed patient instructed on the following: healing process, signs and symptoms of infection, importance of good nutrition and when to report symptoms. Instruct Patient/Caregiver on wound/incision care procedure as ordered by physician Problem:SN Integumentary/Wounds Goal:Patient/Caregiver will have improved healing and be free of signs and symptoms of complications Completed patient instructed on wound care as ordered by Physician. Instruct and educate on knowledge deficits Problem:SN Learning Assessment Goal:Demonstrate understanding of education Completed patient verbalize and/or demonstrate understanding of nursing education completed today. Education methods include: teach back. Further education required to improve knowledge and compliance with cardiac disease management, fall prevention/home safety strategies, gastrointestinal care management, incision/wound care management, medication management, nutrition, ostomy care management, pain management and pulmonary disease management. Ostomy: Complete Pouch Change Description: Pouch to be changed: 2x a week and PRN. Pouch procedure: Remove old pouch, complete peristomal care, use skin prep, powder, paste, crusting technique and two piece, adjust ostomy procedure as needed for leaking/fit complications. Problem:SN Gastrointestinal Goal:Improved management of GI disease/condition Completed Ostomy: Instruct Patient/Caregiver on Ostomy management Problem:SN Gastrointestinal Goal:Improved management of GI disease/condition Completed patient and caregiver instructed on the following: emptying and rinsing pouch, pouch removal, pouch change, disposal of used pouch and appliance, peristomal skin care and ostomy precautions. Instruct on cardiovascular disease process and management of condition Description: Patient has following cardiac diagnosis(es): Hypertension and CAD. Problem:SN Cardiovascular Condition Goal:Improved management of cardiovascular disease Completed patient instructed on cardiac disease process and self monitoring & symptom reporting. Instruct on respiratory disease process and management of condition Description: Patient has following respiratory diagnosis(es): PE Problem:SN Respiratory Disease Goal:Improved management of respiratory condition Completed patient assessed and instructed on respiratory disease process and self monitoring & symptom reporting. [facility] Visit Details Visit Type -PT EVAL Discipline -Physical Therapy Problems Problem Description Start Date Status Goals Interve ntions Medication Education Disciplines: Skilled Services 02/25/2022 Active 1 goal linked to scheduled/document ed intervention 1 goal intervention scheduled/document ed in this visit Sepsis Disciplines: Skilled Services 02/25/2022 Active 1 goal linked to scheduled/document ed intervention 1 goal intervention scheduled/document ed in this visit PT Referral Disciplines: Skilled Services 02/25/2022 Resolved on 02/26/2022 1 goal linked to scheduled/document ed intervention 1 goal intervention scheduled/document ed in this visit Physician Specific Parameters Disciplines: Skilled Services 02/25/2022 Active 1 goal linked to scheduled/document ed intervention 1 goal intervention scheduled/document ed in this visit Risk for Falls Disciplines: Skilled Services 02/25/2022 Active 1 goal linked to scheduled/document ed intervention 1 goal intervention scheduled/document ed in this visit PT Impaired Aerobic Capacity Disciplines: PT 02/26/2022 Resolved on 02/26/2022 1 goal linked to scheduled/document ed intervention 1 goal intervention scheduled/document ed in this visit PT Learning Assessment Disciplines: PT 02/26/2022 Resolved on 02/26/2022 1 goal linked to scheduled/document ed intervention 1 goal intervention scheduled/document ed in this visit Goals Goal Associated Problem Outcome Goal Met? Visit Notes Patient/caregiver will demonstrate ability to obtain, store, identify and administer ordered medications, keep accurate medication list in home, and adhere to medication schedule Description: Patient/caregiver will demonstrate ability to obtain, store, identify and administer ordered medications, keep accurate medication list in home, and adhere to medication schedule by 04/25/22. Medication Education No Patient/caregiver will be able to identify and report symptoms of sepsis Description: Patient/caregiver will be able to identify signs/symptoms of sepsis infection and will verbalize actions to take if suspected by 04/25/22. Sepsis No Patient will be referred to additional discipline as needed PT Referral Completed Yes Patient to maintain parameters within physician-specified ranges throughout certification period Physician Specific Parameters No Manage Risk for falls Description: Patient/caregiver will verbalize knowledge of individualized fall prevention strategies by 04/25/22. Risk for Falls No Improved Aerobic Capacity Description: STG: Patient will demonstrate improved aerobic capacity to meet functional goals as evidenced by Rate of Percieved Exertion (RPE) of 3/10 during walking activity, to be achieved by 02/06/22. PT Impaired Aerobic Capacity Completed Yes Demonstrate understanding of education Description: Patient and/or caregiver will understand educational instruction to be achieved by 02/26/22. PT Learning Assessment Completed Yes Interventions Intervention Associated Problem/Goal Status Variance Visit Notes Medication Education Description: Evaluate/instruct patient/caregiver on obtaining, storing, identifying and administering ordered medications as well as keeping accurate medication list in the home and adhereing to medication schedule Problem:Medication Education Goal:Patient/caregive r will demonstrate ability to obtain, store, identify and administer ordered medications, keep accurate medication list in home, and adhere to medication schedule Completed Patient instructed on importance of keeping accurate medication list in home and adhering to medication schedule. Risk of Sepsis Description: Patient is at risk for sepsis. Monitor closely for s/s of sepsis. Problem:Sepsis Goal:Patient/caregive r will be able to identify and report symptoms of sepsis Completed PT evaluation and treatment Description: Evaluate and treat for the assessment of functional deficits and establishment of appropriate interventions and education, including recommendations for functional mobility training, balance training for fall reduction, and strengthening. Problem:PT Referral Goal:Patient will be referred to additional discipline as needed Completed SPO2 Description: Notify Dr. Cheung if pulse ox is <92% at rest. Problem:Physician Specific Parameters Goal:Patient to maintain parameters within physician-specified ranges throughout certification period Completed Instruct on individual fall risk factors and strategies to prevent falls and injuries caused by falls. Problem:Risk for Falls Goal:Manage Risk for falls Completed PT: Patient and Caregiver instructed on Eliminating Environmental Hazards: Keep pathways clear Physical Therapy Aerobic Capacity Training Problem:PT Impaired Aerobic Capacity Goal:Improved Aerobic Capacity Completed patient instructed on utilization of the Rate of Percieved Exertion (RPE) scale, to not exceed 3-6/10 indicating moderate to heavy intensity of activity. Developed, implemented, and instructed patient on physical therapy interventions and gradually working up to 5-10 minutes of continuous and paced activity. Instruct and educate on knowledge deficits Problem:PT Learning Assessment Goal:Demonstrate understanding of education Completed patient verbalize and/or demonstrate understanding of physical therapy education including surgical precautions, fall prevention strategies, home safety, functional activity and home exercise program. Education methods include: verbal cues and written instructions. [facility] Visit Details Visit Type -PT NORRIS Discipline -Physical Therapy Problems Problem Description Start Date Status Goals Interve ntions Medication Education Disciplines: Skilled Services 02/25/2022 Active 1 goal linked to scheduled/document ed intervention 1 goal intervention scheduled/documente d in this visit Sepsis Disciplines: Skilled Services 02/25/2022 Active 1 goal linked to scheduled/document ed intervention 1 goal intervention scheduled/documente d in this visit Physician Specific Parameters Disciplines: Skilled Services 02/25/2022 Active 1 goal linked to scheduled/document ed intervention 1 goal intervention scheduled/documente d in this visit Risk for Falls Disciplines: Skilled Services 02/25/2022 Active 1 goal linked to scheduled/document ed intervention 1 goal intervention scheduled/documente d in this visit Pain Disciplines: Skilled Services 02/25/2022 Active 1 goal linked to scheduled/document ed intervention 1 goal intervention scheduled/documente d in this visit PT Learning Assessment Disciplines: PT 03/12/2022 Active 1 goal linked to scheduled/document ed intervention 1 goal intervention scheduled/documente d in this visit Goals Goal Associated Problem Outcome Goal Met? Visit Notes Patient/caregiver will demonstrate ability to obtain, store, identify and administer ordered medications, keep accurate medication list in home, and adhere to medication schedule Description: Patient/caregiver will demonstrate ability to obtain, store, identify and administer ordered medications, keep accurate medication list in home, and adhere to medication schedule by 04/25/22. Medication Education No Patient/caregiver will be able to identify and report symptoms of sepsis Description: Patient/caregiver will be able to identify signs/symptoms of sepsis infection and will verbalize actions to take if suspected by 04/25/22. Sepsis No Patient to maintain parameters within physician-specified ranges throughout certification period Physician Specific Parameters No Manage Risk for falls Description: Patient/caregiver will verbalize knowledge of individualized fall prevention strategies by 04/25/22. Risk for Falls No Manage Pain Description: Patient/caregiver will verbalize knowledge and understanding of appropriate techniques to control pain, including pain medication and non-pharmacological techniques. Patient will verbalize or demonstrate an acceptable level of pain as evidenced by a pain score of 0-3/10 and improvement in ability to perform activities of daily living to be achieved by 04/25/22. Pain No Demonstrate understanding of education Description: Patient and/or caregiver will understand educational instruction to be achieved by 04/25/22. . PT Learning Assessment No Interventions Intervention Associated Problem/Goal Status Variance Visit Notes Medication Education Description: Evaluate/instruct patient/caregiver on obtaining, storing, identifying and administering ordered medications as well as keeping accurate medication list in the home and adhereing to medication schedule Problem:Medication Education Goal:Patient/caregive r will demonstrate ability to obtain, store, identify and administer ordered medications, keep accurate medication list in home, and adhere to medication schedule Completed Patient instructed on importance of keeping accurate medication list in home and adhering to medication schedule. Risk of Sepsis Description: Patient is at risk for sepsis. Monitor closely for s/s of sepsis. Problem:Sepsis Goal:Patient/caregive r will be able to identify and report symptoms of sepsis Completed SPO2 Description: Notify Dr. Cheung if pulse ox is <92% at rest. Problem:Physician Specific Parameters Goal:Patient to maintain parameters within physician-specified ranges throughout certification period Completed Instruct on individual fall risk factors and strategies to prevent falls and injuries caused by falls. Problem:Risk for Falls Goal:Manage Risk for falls Completed PT: Patient instructed on Eliminating Environmental Hazards: Keep pathways clear, Remove unsafe rugs and Move furniture from pathways Managing Impaired Functional Mobility: Caregiver to provide assist with: Steps Managing Pain Instruct on pain and instruct on strategies to control pain Problem:Pain Goal:Manage Pain Completed patient instructed on techniques to control pain including Pharmacological measures and Non-Pharmacological measures; rest and positioning/elevation. Instruct and educate on knowledge deficits Problem:PT Learning Assessment Goal:Demonstrate understanding of education Completed patient verbalize and/or demonstrate understanding of physical therapy education including pain management, fall prevention strategies, home safety, functional activity and home exercise program. Education methods include: verbal cues. Further education required to improve knowledge and compliance with fall prevention strategies, home safety, functional activity and home exercise program. documented in this encounter [facility] home Plan of care note* Visit Details Visit Type -SN ROUTINE Discipline -Senior Care Problems Problem Description Start Date Status Goals Interve ntions Medication Education Disciplines: Skilled Services 02/25/2022 Active 1 goal linked to scheduled/docume nted intervention 1 goal intervention scheduled/documen deyanira in this visit Sepsis Disciplines: Skilled Services 02/25/2022 Active 1 goal linked to scheduled/docume nted intervention 1 goal intervention scheduled/documen deyanira in this visit Declined Referral Disciplines: Skilled Services 02/25/2022 Resolved on 03/15/2022 1 goal linked to scheduled/docume nted intervention Risk for skin breakdown Disciplines: Skilled Services 02/25/2022 Resolved on 03/15/2022 1 goal linked to scheduled/docume nted intervention 1 goal intervention scheduled/documen deyanira in this visit Physician Specific Parameters Disciplines: Skilled Services 02/25/2022 Active 1 goal linked to scheduled/docume nted intervention 1 goal intervention scheduled/documen deyanira in this visit Risk for Falls Disciplines: Skilled Services 02/25/2022 Active 1 goal linked to scheduled/docume nted intervention 1 goal intervention scheduled/documen deyanira in this visit Pain Disciplines: Skilled Services 02/25/2022 Active 1 goal linked to scheduled/docume nted intervention 1 goal intervention scheduled/documen deyanira in this visit Nutrition/Hydration Disciplines: Skilled Services 02/25/2022 Active 1 goal linked to scheduled/docume nted intervention 1 goal intervention scheduled/documen deyanira in this visit SN Edema Disciplines: 02/25/2022 Resolved on 03/15/2022 1 goal linked to scheduled/docume nted intervention SN Integumentary/Wound s Disciplines: 02/25/2022 Active 1 goal linked to scheduled/docume nted intervention 2 goal interventions scheduled/documen deyanira in this visit SN Learning Assessment Disciplines: 02/25/2022 Active 1 goal linked to scheduled/docume nted intervention 1 goal intervention scheduled/documen deyanira in this visit SN Gastrointestinal Disciplines: 02/25/2022 Active 1 goal linked to scheduled/docume nted intervention 2 goal interventions scheduled/documen deyanira in this visit SN Cardiovascular Condition Disciplines: 02/25/2022 Active 1 goal linked to scheduled/docume nted intervention 1 goal intervention scheduled/documen deyanira in this visit SN Other significant comorbidities/disea se process Disciplines: 03/13/2022 Active 1 goal linked to scheduled/docume nted intervention 1 goal intervention scheduled/documen deyanira in this visit Goals Goal Associated Problem Outcome Goal Met? Visit Notes Patient/caregiver will demonstrate ability to obtain, store, identify and administer ordered medications, keep accurate medication list in home, and adhere to medication schedule Description: Patient/caregiver will demonstrate ability to obtain, store, identify and administer ordered medications, keep accurate medication list in home, and adhere to medication schedule by 04/25/22. Medication Education No Patient/caregiver will be able to identify and report symptoms of sepsis Description: Patient/caregiver will be able to identify signs/symptoms of sepsis infection and will verbalize actions to take if suspected by 04/25/22. Sepsis No Patient has declined referred services Declined Referral Completed Yes Manage risk for skin breakdown Description: Patient/caregiver will verbalize and demonstrate understanding of the risks and measures to be taken to monitor and prevent skin breakdown by 04/25/22. Risk for skin breakdown Completed Yes Patient to maintain parameters within physician-specified ranges throughout certification period Physician Specific Parameters No Manage Risk for falls Description: Patient/caregiver will verbalize knowledge of individualized fall prevention strategies by 04/25/22. Risk for Falls No Manage Pain Description: Patient/caregiver will verbalize knowledge and understanding of appropriate techniques to control pain, including pain medication and non-pharmacological techniques. Patient will verbalize or demonstrate an acceptable level of pain as evidenced by a pain score of 0-3/10 and improvement in ability to perform activities of daily living to be achieved by 04/25/22. Pain No Manage Nutrition/Hydration Description: Patient/caregiver will verbalize/demonstrate knowledge of prescribed diet and/or healthy nutrition to be achieved by 04/25/22. Nutrition/Hydration No Patient will have improved edema management Description: Patient/caregiver will demonstrate an understanding of edema management strategies as evidenced by resolution or stabilization of edema by 04/11/22. SN Edema Completed Yes Patient/Caregiver will have improved healing and be free of signs and symptoms of complications Description: Patient/caregiver will verbalize management strategies to promote wound healing & prevent complications as evidenced by improved healing & no complications by 04/11/22. SN Integumentary/Wounds No Demonstrate understanding of education Description: Patient and/or caregiver will verbalize understanding of educational instruction provided throughout certification period. SN Learning Assessment No Improved management of GI disease/condition Description: Patient/Caregiver will demonstrate understanding of GI education as evidenced by improved management of gastrointestinal disease/condition by 04/11/22. SN Gastrointestinal No Improved management of cardiovascular disease Description: Improve patient/caregiver management of cardiac disease as evidenced by patient/caregiver ability to teach back cardiac management strategies by 04/11/22. SN Cardiovascular Condition No Patient/Caregiver will verbalize and/or demonstrate understanding of additional comorbidity(s) or disease process affecting plan of care Description: Patient/Caregiver will verbalize and/or demonstrate understanding of comorbidities effect on health conditions by 04/03/22. SN Other significant comorbidities/disease process No Interventions Intervention Associated Problem/Goal Status Variance Visit Notes Medication Education Description: Evaluate/instruct patient/caregiver on obtaining, storing, identifying and administering ordered medications as well as keeping accurate medication list in the home and adhereing to medication schedule Problem:Medication Education Goal:Patient/caregiver will demonstrate ability to obtain, store, identify and administer ordered medications, keep accurate medication list in home, and adhere to medication schedule Completed Patient and Caregiver instructed on adhering to medication schedule. Risk of Sepsis Description: Patient is at risk for sepsis. Monitor closely for s/s of sepsis. Problem:Sepsis Goal:Patient/caregiver will be able to identify and report symptoms of sepsis Completed Instruct on the risks and measures to be taken to prevent skin breakdown Description: Patient's Claude Score is: at risk. A Claude score <= to 18 indicates risk for skin breakdown. Problem:Risk for skin breakdown Goal:Manage risk for skin breakdown Completed patient instructed on maintaining skin integrity including: The need for every 1-2 hour turns, position changes, and maintaining activity as tolerated and Routine skin care SPO2 Description: Notify Dr. Cheung if pulse ox is <92% at rest. Problem:Physician Specific Parameters Goal:Patient to maintain parameters within physician-specified ranges throughout certification period Completed Instruct on individual fall risk factors and strategies to prevent falls and injuries caused by falls. Problem:Risk for Falls Goal:Manage Risk for falls Completed SN: Patient and Caregiver instructed on Eliminating Environmental Hazards: Keep pathways clear and Keep rooms and walkways well lit Managing Impaired Functional Mobility: Caregiver to provide assist with: Steps and ADL/IADLs Instruct on pain and instruct on strategies to control pain Problem:Pain Goal:Manage Pain Completed patient instructed on techniques to control pain including Non-Pharmacological measures; rest, positioning/elevation and breathing/relaxation. Define patient s appetite/hydration status and implement strategies to improve compliance with prescribed diet and/or healthy nutrition. Problem:Nutrition/Hydr ation Goal:Manage Nutrition/Hydration Completed reinforced patient and caregiver on implementing strategies to comply with healthy nutrition and adequate hydration Instruct patient/caregiver healing process and management measures to promote healing and avoid complications Problem:SN Integumentary/Wounds Goal:Patient/Caregiver will have improved healing and be free of signs and symptoms of complications Completed patient and caregiver instructed on the following: healing process, importance of good nutrition and when to report symptoms. Instruct Patient/Caregiver on wound/incision care procedure as ordered by physician Problem:SN Integumentary/Wounds Goal:Patient/Caregiver will have improved healing and be free of signs and symptoms of complications Completed patient instructed on wound care as ordered by Physician. Instruct and educate on knowledge deficits Problem:SN Learning Assessment Goal:Demonstrate understanding of education Completed patient and caregiver verbalize and/or demonstrate understanding of nursing education completed today. Education methods include: verbal cues, visual cues and teach back. Further education required to improve knowledge and compliance with cardiac disease management, fall prevention/home safety strategies, gastrointestinal care management, hematological care management, incision/wound care management, integumentary care management, medication management, nutrition, pain management, pulmonary disease management and surgical care precautions. Ostomy: Complete Pouch Change Description: Pouch to be changed: 2x a week and PRN. Pouch procedure: Remove old pouch, complete peristomal care, use skin prep, powder, paste, crusting technique and two piece, adjust ostomy procedure as needed for leaking/fit complications. Problem:SN Gastrointestinal Goal:Improved management of GI disease/condition Completed Ostomy: Instruct Patient/Caregiver on Ostomy management Problem:SN Gastrointestinal Goal:Improved management of GI disease/condition Completed patient and caregiver instructed on the following: pouch change and peristomal skin care. Instruct on cardiovascular disease process and management of condition Description: Patient has following cardiac diagnosis(es): Hypertension and CAD. Problem:SN Cardiovascular Condition Goal:Improved management of cardiovascular disease Completed patient instructed on self monitoring & symptom reporting. 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 documented in this [facility] Plan of care note* Visit Details Visit Type -SCOOP DRIVER ROUTINE Discipline -Physical Therapy Problems Problem Description Start Date Status Goals Interve ntions Medication Education Disciplines: Skilled Services 02/25/2022 Active 1 goal linked to scheduled/document ed intervention 1 goal intervention scheduled/document ed in this visit Sepsis Disciplines: Skilled Services 02/25/2022 Active 1 goal linked to scheduled/document ed intervention 1 goal intervention scheduled/document ed in this visit Physician Specific Parameters Disciplines: Skilled Services 02/25/2022 Active 1 goal linked to scheduled/document ed intervention 1 goal intervention scheduled/document ed in this visit Risk for Falls Disciplines: Skilled Services 02/25/2022 Active 1 goal linked to scheduled/document ed intervention 1 goal intervention scheduled/document ed in this visit Pain Disciplines: Skilled Services 02/25/2022 Active 1 goal linked to scheduled/document ed intervention 1 goal intervention scheduled/document ed in this visit Discharge Disciplines: Skilled Services 02/25/2022 Active 1 goal linked to scheduled/document ed intervention 1 goal intervention scheduled/document ed in this visit PT Impaired Aerobic Capacity Disciplines: PT 03/12/2022 Active 1 goal linked to scheduled/document ed intervention 1 goal intervention scheduled/document ed in this visit PT Impaired muscle performance and/or ROM Disciplines: PT 03/12/2022 Active 1 goal linked to scheduled/document ed intervention 1 goal intervention scheduled/document ed in this visit PT Impaired gait Disciplines: PT 03/12/2022 Active 2 goals linked to scheduled/document ed interventions 2 goal interventions scheduled/document ed in this visit PT Learning Assessment Disciplines: PT 03/12/2022 Active 1 goal linked to scheduled/document ed intervention 1 goal intervention scheduled/document ed in this visit Goals Goal Associated Problem Outcome Goal Met? Visit Notes Patient/caregiver will demonstrate ability to obtain, store, identify and administer ordered medications, keep accurate medication list in home, and adhere to medication schedule Description: Patient/caregiver will demonstrate ability to obtain, store, identify and administer ordered medications, keep accurate medication list in home, and adhere to medication schedule by 04/25/22. Medication Education No Patient/caregiver will be able to identify and report symptoms of sepsis Description: Patient/caregiver will be able to identify signs/symptoms of sepsis infection and will verbalize actions to take if suspected by 04/25/22. Sepsis No Patient to maintain parameters within physician-specified ranges throughout certification period Physician Specific Parameters No Manage Risk for falls Description: Patient/caregiver will verbalize knowledge of individualized fall prevention strategies by 04/25/22. Risk for Falls No Manage Pain Description: Patient/caregiver will verbalize knowledge and understanding of appropriate techniques to control pain, including pain medication and non-pharmacological techniques. Patient will verbalize or demonstrate an acceptable level of pain as evidenced by a pain score of 0-3/10 and improvement in ability to perform activities of daily living to be achieved by 04/25/22. Pain No Manage discharge planning Description: Patient/caregiver will verbalize understanding of ongoing discharge plan provided related to disease management, arrangements for outpatient and/or community services, obtaining medications, supplies, and DME, as needed throughout certification period. Discharge No Improved Aerobic Capacity Description: LTG: Patient will demonstrate improved aerobic capacity to meet functional goals as evidenced by the ability to complete a 2 Minute Walk Test to be achieved by 04/25/22. LTG: Patient will demonstrate improved aerobic capacity to meet functional goals as evidenced by Rate of Percieved Exertion (RPE) of 3/10 during walking activity, to be achieved by 04/25/22. . PT Impaired Aerobic Capacity No Improved Muscle Performance and/or ROM Description: LTG: Patient will demonstrate improved muscle performance to meet functional goals as evidenced by ability to tolerate 10-15 min of standing activity, to be achieved by 04/25/22. . STG: Patient and/or caregiver will verbalize/demonstrate independence with home exercise program, to improve functional mobility, to be achieved by 03/28/22. PT Impaired muscle performance and/or ROM No Improved Stair Climbing Description: LTG: Patient will demonstrate improved stair negotiation as evidenced by ascend/descend 5 steps with railing independently, to safely access community and exit home, to be achieved by 04/25/22. . PT Impaired gait No Improved Gait Description: LTG: Patient will demonstrate improved gait ability as evidenced by ambulation 150 feet with no device independently, to return to safe household and community ambulation, in order to return to [facility] , to be achieved by 04/25/22. . PT Impaired gait No Demonstrate understanding of education Description: Patient and/or caregiver will understand educational instruction to be achieved by 04/25/22. . PT Learning Assessment No Interventions Intervention Associated Problem/Goal Status Variance Visit Notes Medication Education Description: Evaluate/instruct patient/caregiver on obtaining, storing, identifying and administering ordered medications as well as keeping accurate medication list in the home and adhereing to medication schedule Problem:Medication Education Goal:Patient/caregive r will demonstrate ability to obtain, store, identify and administer ordered medications, keep accurate medication list in home, and adhere to medication schedule Completed Patient and Caregiver instructed on importance of keeping accurate medication list in home. Risk of Sepsis Description: Patient is at risk for sepsis. Monitor closely for s/s of sepsis. Problem:Sepsis Goal:Patient/caregive r will be able to identify and report symptoms of sepsis Completed SPO2 Description: Notify Dr. Cheung if pulse ox is <92% at rest. Problem:Physician Specific Parameters Goal:Patient to maintain parameters within physician-specified ranges throughout certification period Completed Instruct on individual fall risk factors and strategies to prevent falls and injuries caused by falls. Problem:Risk for Falls Goal:Manage Risk for falls Completed PT: Patient instructed on Eliminating Environmental Hazards: Keep pathways clear Instruct on pain and instruct on strategies to control pain Problem:Pain Goal:Manage Pain Completed patient instructed on techniques to control pain including Pharmacological measures and Non-Pharmacological measures; rest, positioning/elevation and distraction. Instruct on ongoing discharge plan Problem:Discharge Goal:Manage discharge planning Completed Ongoing Discharge plan: Discharge plan discussed with patient including frequency and duration for home PT and plan for transition to: caregiver assistance. Physical Therapy Aerobic Capacity Training Problem:PT Impaired Aerobic Capacity Goal:Improved Aerobic Capacity Completed patient instructed on utilization of the Rate of Percieved Exertion (RPE) scale, to not exceed 3-6/10 indicating moderate to heavy intensity of activity. Developed, implemented, and instructed patient on physical therapy interventions completing 7 minutes of paced activity. Physical Therapy Therapeutic Exercises Problem:PT Impaired muscle performance and/or ROM Goal:Improved Muscle Performance and/or ROM Completed patient instructed on strengthening exercises including seated laq, hip flrxion and adduction, heel toe raises x's 15 each, standing hamstring curls x's 10 restorator x's 3min with verbal, visual and written cues for correct form. patient instructed to perform home exercise program twice a day which included above exercises . Physical Therapy Stair Training Problem:PT Impaired gait Goal:Improved Stair Climbing Completed Stair training and instruction to patient on safe stair climbing, ascend/descend 1 steps, without railing and with environmental support with supervision and verbal cues for safety. Physical Therapy Gait Training Problem:PT Impaired gait Goal:Improved Gait Completed Gait training and instruction to patient on safe ambulation with no device for 40 feet with supervision, with verbal cues for corrections of gait deviations including pacing for energy conservation. Instruct and educate on knowledge deficits Problem:PT Learning Assessment Goal:Demonstrate understanding of education Completed patient verbalize and/or demonstrate understanding of physical therapy education including home exercise program. Education methods include: verbal cues, written instructions and visual cues. Further education required to improve knowledge and compliance with home exercise program. [facility] Visit Details Visit Type -SN ROUTINE Discipline -Senior Care Problems Problem Description Start Date Status Goals Interve ntions Medication Education Disciplines: Skilled Services 02/25/2022 Active 1 goal linked to scheduled/docume nted intervention 1 goal intervention scheduled/documen deyanira in this visit Sepsis Disciplines: Skilled Services 02/25/2022 Active 1 goal linked to scheduled/docume nted intervention 1 goal intervention scheduled/documen deyanira in this visit Physician Specific Parameters Disciplines: Skilled Services 02/25/2022 Active 1 goal linked to scheduled/docume nted intervention 1 goal intervention scheduled/documen deyanira in this visit Risk for Falls Disciplines: Skilled Services 02/25/2022 Active 1 goal linked to scheduled/docume nted intervention 1 goal intervention scheduled/documen deyanira in this visit Pain Disciplines: Skilled Services 02/25/2022 Active 1 goal linked to scheduled/docume nted intervention 1 goal intervention scheduled/documen deyanira in this visit Nutrition/Hydration Disciplines: Skilled Services 02/25/2022 Active 1 goal linked to scheduled/docume nted intervention 1 goal intervention scheduled/documen deyanira in this visit SN Edema Disciplines: SN 02/25/2022 Active 1 goal linked to scheduled/docume nted intervention 1 goal intervention scheduled/documen deyanira in this visit SN Integumentary/Wound s Disciplines: SN 02/25/2022 Resolved on 03/19/2022 1 goal linked to scheduled/docume nted intervention SN Learning Assessment Disciplines: 02/25/2022 Active 1 goal linked to scheduled/docume nted intervention 1 goal intervention scheduled/documen deyanira in this visit SN Gastrointestinal Disciplines: SN 02/25/2022 Active 1 goal linked to scheduled/docume nted intervention 2 goal interventions scheduled/documen deyanira in this visit SN Cardiovascular Condition Disciplines: 02/25/2022 Active 1 goal linked to scheduled/docume nted intervention 1 goal intervention scheduled/documen deyanira in this visit Goals Goal Associated Problem Outcome Goal Met? Visit Notes Patient/caregiver will demonstrate ability to obtain, store, identify and administer ordered medications, keep accurate medication list in home, and adhere to medication schedule Description: Patient/caregiver will demonstrate ability to obtain, store, identify and administer ordered medications, keep accurate medication list in home, and adhere to medication schedule by 04/25/22. Medication Education No Patient/caregiver will be able to identify and report symptoms of sepsis Description: Patient/caregiver will be able to identify signs/symptoms of sepsis infection and will verbalize actions to take if suspected by 04/25/22. Sepsis No Patient to maintain parameters within physician-specified ranges throughout certification period Physician Specific Parameters No Manage Risk for falls Description: Patient/caregiver will verbalize knowledge of individualized fall prevention strategies by 04/25/22. Risk for Falls No Manage Pain Description: Patient/caregiver will verbalize knowledge and understanding of appropriate techniques to control pain, including pain medication and non-pharmacological techniques. Patient will verbalize or demonstrate an acceptable level of pain as evidenced by a pain score of 0-3/10 and improvement in ability to perform activities of daily living to be achieved by 04/25/22. Pain No Manage Nutrition/Hydration Description: Patient/caregiver will verbalize/demonstrate knowledge of prescribed diet and/or healthy nutrition to be achieved by 04/25/22. Nutrition/Hydration No Patient will have improved edema management Description: Patient/caregiver will demonstrate an understanding of edema management strategies as evidenced by resolution or stabilization of edema by 04/11/22. SN Edema No Patient/Caregiver will have improved healing and be free of signs and symptoms of complications Description: Patient/caregiver will verbalize management strategies to promote wound healing & prevent complications as evidenced by improved healing & no complications by 04/11/22. SN Integumentary/Wounds Completed Yes Demonstrate understanding of education Description: Patient and/or caregiver will verbalize understanding of educational instruction provided throughout certification period. SN Learning Assessment No Improved management of GI disease/condition Description: Patient/Caregiver will demonstrate understanding of GI education as evidenced by improved management of gastrointestinal disease/condition by 04/11/22. SN Gastrointestinal No Improved management of cardiovascular disease Description: Improve patient/caregiver management of cardiac disease as evidenced by patient/caregiver ability to teach back cardiac management strategies by 04/11/22. SN Cardiovascular Condition No Interventions Intervention Associated Problem/Goal Status Variance Visit Notes Medication Education Description: Evaluate/instruct patient/caregiver on obtaining, storing, identifying and administering ordered medications as well as keeping accurate medication list in the home and adhereing to medication schedule Problem:Medication Education Goal:Patient/caregiver will demonstrate ability to obtain, store, identify and administer ordered medications, keep accurate medication list in home, and adhere to medication schedule Completed Patient instructed on adhering to medication schedule. Risk of Sepsis Description: Patient is at risk for sepsis. Monitor closely for s/s of sepsis. Problem:Sepsis Goal:Patient/caregiver will be able to identify and report symptoms of sepsis Completed SPO2 Description: Notify Dr. Cheung if pulse ox is <92% at rest. Problem:Physician Specific Parameters Goal:Patient to maintain parameters within physician-specified ranges throughout certification period Completed Instruct on individual fall risk factors and strategies to prevent falls and injuries caused by falls. Problem:Risk for Falls Goal:Manage Risk for falls Completed SN: Patient instructed on Eliminating Environmental Hazards: Keep pathways clear and Keep rooms and walkways well lit Managing Impaired Functional Mobility: Caregiver to provide assist with: Steps Instruct on pain and instruct on strategies to control pain Problem:Pain Goal:Manage Pain Completed patient instructed on techniques to control pain including Non-Pharmacological measures; positioning/elevation. Define patient s appetite/hydration status and implement strategies to improve compliance with prescribed diet and/or healthy nutrition. Problem:Nutrition/Hydr ation Goal:Manage Nutrition/Hydration Completed reinforced patient on implementing strategies to comply with prescribed diet, healthy nutrition and adequate hydration Assess and instruct on measures to reduce edema Problem:SN Edema Goal:Patient will have improved edema management Completed patient instructed on elevation. Instruct and educate on knowledge deficits Problem:SN Learning Assessment Goal:Demonstrate understanding of education Completed patient verbalize and/or demonstrate understanding of nursing education completed today. Education methods include: verbal cues, tactile cues and visual cues. Further education required to improve knowledge and compliance with cardiac disease management, fall prevention/home safety strategies, gastrointestinal care management, hematological care management, medication management, nutrition, pain management and pulmonary disease management. Ostomy: Complete Pouch Change Description: Pouch to be changed: 2x a week and PRN. Pouch procedure: Remove old pouch, complete peristomal care, use skin prep, powder, paste, crusting technique and two piece, adjust ostomy procedure as needed for leaking/fit complications. Problem:SN Gastrointestinal Goal:Improved management of GI disease/condition Completed Ostomy: Instruct Patient/Caregiver on Ostomy management Problem:SN Gastrointestinal Goal:Improved management of GI disease/condition Completed patient instructed on the following: emptying and rinsing pouch. Instruct on cardiovascular disease process and management of condition Description: Patient has following cardiac diagnosis(es): Hypertension and CAD. Problem:SN Cardiovascular Condition Goal:Improved management of cardiovascular disease Completed patient instructed on self monitoring & symptom reporting. 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 Discipline -Physical Therapy Problems Problem Description Start Date Status Goals Interve ntions Medication Education Disciplines: Skilled Services 02/25/2022 Active 1 goal linked to scheduled/document ed intervention 1 goal intervention scheduled/document ed in this visit Sepsis Disciplines: Skilled Services 02/25/2022 Active 1 goal linked to scheduled/document ed intervention 1 goal intervention scheduled/document ed in this visit Cancer Disciplines: Skilled Services 02/25/2022 Active 1 goal linked to scheduled/document ed intervention 1 goal intervention scheduled/document ed in this visit Physician Specific Parameters Disciplines: Skilled Services 02/25/2022 Active 1 goal linked to scheduled/document ed intervention 1 goal intervention scheduled/document ed in this visit Risk for Falls Disciplines: Skilled Services 02/25/2022 Active 1 goal linked to scheduled/document ed intervention 1 goal intervention scheduled/document ed in this visit Pain Disciplines: Skilled Services 02/25/2022 Active 1 goal linked to scheduled/document ed intervention 1 goal intervention scheduled/document ed in this visit PT Impaired Aerobic Capacity Disciplines: PT 03/12/2022 Active 1 goal linked to scheduled/document ed intervention 1 goal intervention scheduled/document ed in this visit PT Impaired muscle performance and/or ROM Disciplines: PT 03/12/2022 Active 1 goal linked to scheduled/document ed intervention 1 goal intervention scheduled/document ed in this visit PT Impaired gait Disciplines: PT 03/12/2022 Active 2 goals linked to scheduled/document ed interventions 2 goal interventions scheduled/document ed in this visit PT Learning Assessment Disciplines: PT 03/12/2022 Active 1 goal linked to scheduled/document ed intervention 1 goal intervention scheduled/document ed in this visit Goals Goal Associated Problem Outcome Goal Met? Visit Notes Patient/caregiver will demonstrate ability to obtain, store, identify and administer ordered medications, keep accurate medication list in home, and adhere to medication schedule Description: Patient/caregiver will demonstrate ability to obtain, store, identify and administer ordered medications, keep accurate medication list in home, and adhere to medication schedule by 04/25/22. Medication Education No Patient/caregiver will be able to identify and report symptoms of sepsis Description: Patient/caregiver will be able to identify signs/symptoms of sepsis infection and will verbalize actions to take if suspected by 04/25/22. Sepsis No Improve symptom management of cancer and side effects of treatment Description: Patient/caregiver will verbalize understanding of cancer diagnosis, side effects of treatment, and management of symptoms by 04/25/22. Cancer No Patient to maintain parameters within physician-specified ranges throughout certification period Physician Specific Parameters No Manage Risk for falls Description: Patient/caregiver will verbalize knowledge of individualized fall prevention strategies by 04/25/22. Risk for Falls No Manage Pain Description: Patient/caregiver will verbalize knowledge and understanding of appropriate techniques to control pain, including pain medication and non-pharmacological techniques. Patient will verbalize or demonstrate an acceptable level of pain as evidenced by a pain score of 0-3/10 and improvement in ability to perform activities of daily living to be achieved by 04/25/22. Pain No Improved Aerobic Capacity Description: LTG: Patient will demonstrate improved aerobic capacity to meet functional goals as evidenced by the ability to complete a 2 Minute Walk Test to be achieved by 04/25/22. LTG: Patient will demonstrate improved aerobic capacity to meet functional goals as evidenced by Rate of Percieved Exertion (RPE) of 3/10 during walking activity, to be achieved by 04/25/22. . PT Impaired Aerobic Capacity No Improved Muscle Performance and/or ROM Description: LTG: Patient will demonstrate improved muscle performance to meet functional goals as evidenced by ability to tolerate 10-15 min of standing activity, to be achieved by 04/25/22. . STG: Patient and/or caregiver will verbalize/demonstrate independence with home exercise program, to improve functional mobility, to be achieved by 03/28/22. PT Impaired muscle performance and/or ROM No Improved Stair Climbing Description: LTG: Patient will demonstrate improved stair negotiation as evidenced by ascend/descend 5 steps with railing independently, to safely access community and exit home, to be achieved by 04/25/22. . PT Impaired gait No Improved Gait Description: LTG: Patient will demonstrate improved gait ability as evidenced by ambulation 150 feet with no device independently, to return to safe household and community ambulation, in order to return to [facility] , to be achieved by 04/25/22. . PT Impaired gait No Demonstrate understanding of education Description: Patient and/or caregiver will understand educational instruction to be achieved by 04/25/22. . PT Learning Assessment No Interventions Intervention Associated Problem/Goal Status Variance Visit Notes Medication Education Description: Evaluate/instruct patient/caregiver on obtaining, storing, identifying and administering ordered medications as well as keeping accurate medication list in the home and adhereing to medication schedule Problem:Medication Education Goal:Patient/caregive r will demonstrate ability to obtain, store, identify and administer ordered medications, keep accurate medication list in home, and adhere to medication schedule Completed Patient and Caregiver instructed on importance of keeping accurate medication list in home and adhering to medication schedule. Risk of Sepsis Description: Patient is at risk for sepsis. Monitor closely for s/s of sepsis. Problem:Sepsis Goal:Patient/caregive r will be able to identify and report symptoms of sepsis Completed Instruct patient/caregiver on cancer diagnosis, side effects of treatment, and management of symptoms Description: Instruct patient/caregiver on rectal cancer diagnosis, side effects of treatment and management of symptoms. Problem:Cancer Goal:Improve symptom management of cancer and side effects of treatment Completed Patient instructed on cancer disease process. SPO2 Description: Notify Dr. Cheung if pulse ox is <92% at rest. Problem:Physician Specific Parameters Goal:Patient to maintain parameters within physician-specified ranges throughout certification period Completed Instruct on individual fall risk factors and strategies to prevent falls and injuries caused by falls. Problem:Risk for Falls Goal:Manage Risk for falls Completed PT: Patient instructed on Eliminating Environmental Hazards: Remove unsafe rugs Instruct on pain and instruct on strategies to control pain Problem:Pain Goal:Manage Pain Completed patient instructed on techniques to control pain including Pharmacological measures and Non-Pharmacological measures; rest. Physical Therapy Aerobic Capacity Training Problem:PT Impaired Aerobic Capacity Goal:Improved Aerobic Capacity Completed patient instructed on utilization of the Rate of Percieved Exertion (RPE) scale, to not exceed 3-6/10 indicating moderate to heavy intensity of activity. Developed, implemented, and instructed patient on physical therapy interventions completing 5 minutes of paced activity. Physical Therapy Therapeutic Exercises Problem:PT Impaired muscle performance and/or ROM Goal:Improved Muscle Performance and/or ROM Completed patient instructed on strengthening exercises including stabnding heel and toe raises, hip abd, hamstring curlsx's 10each seated laq and hip flexion x's 10 each. restorator x's 4min with verbal cues for pacing and deep breathing. patient instructed to perform home exercise program twice a day which included above exercises. Physical Therapy Stair Training Problem:PT Impaired gait Goal:Improved Stair Climbing Completed Stair training and instruction to patient on safe stair climbing, ascend/descend 15 steps, with railing with stand by assist and verbal cues for pacing for safety and energy conservation. Physical Therapy Gait Training Problem:PT Impaired gait Goal:Improved Gait Completed Gait training and instruction to patient on safe ambulation with no device for 2x's 30 feet with supervision, with verbal cues for corrections of gait deviations including pacing for energy conservation. Instruct and educate on knowledge deficits Problem:PT Learning Assessment Goal:Demonstrate understanding of education Completed patient verbalize and/or demonstrate understanding of physical therapy education including home exercise program. Education methods include: verbal cues. Further education required to improve knowledge and compliance with home exercise program. [facility] Visit Details Visit Type -SN ROUTINE Discipline -Senior Care Problems Problem Description Start Date Status Goals Interve ntions Medication Education Disciplines: Skilled Services 02/25/2022 Active 1 goal linked to scheduled/docume nted intervention 1 goal intervention scheduled/documen deyanira in this visit Sepsis Disciplines: Skilled Services 02/25/2022 Active 1 goal linked to scheduled/docume nted intervention 1 goal intervention scheduled/documen deyanira in this visit Cancer Disciplines: Skilled Services 02/25/2022 Active 1 goal linked to scheduled/docume nted intervention Physician Specific Parameters Disciplines: Skilled Services 02/25/2022 Active 1 goal linked to scheduled/docume nted intervention 1 goal intervention scheduled/documen deyanira in this visit Risk for Falls Disciplines: Skilled Services 02/25/2022 Active 1 goal linked to scheduled/docume nted intervention 1 goal intervention scheduled/documen deyanira in this visit Pain Disciplines: Skilled Services 02/25/2022 Active 1 goal linked to scheduled/docume nted intervention Nutrition/Hydration Disciplines: Skilled Services 02/25/2022 Active 1 goal linked to scheduled/docume nted intervention 1 goal intervention scheduled/documen deyanira in this visit Discharge Disciplines: Skilled Services 02/25/2022 Active 1 goal linked to scheduled/docume nted intervention 1 goal intervention scheduled/documen deyanira in this visit SN Edema Disciplines: SN 02/25/2022 Resolved on 03/24/2022 1 goal linked to scheduled/docume nted intervention 1 goal intervention scheduled/documen deyanira in this visit SN Learning Assessment Disciplines: SN 02/25/2022 Active 1 goal linked to scheduled/docume nted intervention 1 goal intervention scheduled/documen deyanira in this visit SN Gastrointestinal Disciplines: SN 02/25/2022 Active 1 goal linked to scheduled/docume nted intervention 2 goal interventions scheduled/documen deyanira in this visit SN Cardiovascular Condition Disciplines: SN 02/25/2022 Active 1 goal linked to scheduled/docume nted intervention 1 goal intervention scheduled/documen deyanira in this visit SN Other significant comorbidities/disea se process Disciplines: SN 03/13/2022 Active 1 goal linked to scheduled/docume nted intervention 1 goal intervention scheduled/documen deyanira in this visit Goals Goal Associated Problem Outcome Goal Met? Visit Notes Patient/caregiver will demonstrate ability to obtain, store, identify and administer ordered medications, keep accurate medication list in home, and adhere to medication schedule Description: Patient/caregiver will demonstrate ability to obtain, store, identify and administer ordered medications, keep accurate medication list in home, and adhere to medication schedule by 04/25/22. Medication Education In Progress No Patient/caregiver will be able to identify and report symptoms of sepsis Description: Patient/caregiver will be able to identify signs/symptoms of sepsis infection and will verbalize actions to take if suspected by 04/25/22. Sepsis In Progress No Improve symptom management of cancer and side effects of treatment Description: Patient/caregiver will verbalize understanding of cancer diagnosis, side effects of treatment, and management of symptoms by 04/25/22. Cancer In Progress No Patient to maintain parameters within physician-specified ranges throughout certification period Physician Specific Parameters In Progress No Manage Risk for falls Description: Patient/caregiver will verbalize knowledge of individualized fall prevention strategies by 04/25/22. Risk for Falls In Progress No Manage Pain Description: Patient/caregiver will verbalize knowledge and understanding of appropriate techniques to control pain, including pain medication and non-pharmacological techniques. Patient will verbalize or demonstrate an acceptable level of pain as evidenced by a pain score of 0-3/10 and improvement in ability to perform activities of daily living to be achieved by 04/25/22. Pain In Progress No Manage Nutrition/Hydration Description: Patient/caregiver will verbalize/demonstrate knowledge of prescribed diet and/or healthy nutrition to be achieved by 04/25/22. Nutrition/Hydration In Progress No Manage discharge planning Description: Patient/caregiver will verbalize understanding of ongoing discharge plan provided related to disease management, arrangements for outpatient and/or community services, obtaining medications, supplies, and DME, as needed throughout certification period. Discharge In Progress No Patient will have improved edema management Description: Patient/caregiver will demonstrate an understanding of edema management strategies as evidenced by resolution or stabilization of edema by 04/11/22. SN Edema Completed Yes Demonstrate understanding of education Description: Patient and/or caregiver will verbalize understanding of educational instruction provided throughout certification period. SN Learning Assessment In Progress No Improved management of GI disease/condition Description: Patient/Caregiver will demonstrate understanding of GI education as evidenced by improved management of gastrointestinal disease/condition by 04/11/22. SN Gastrointestinal In Progress No Improved management of cardiovascular disease Description: Improve patient/caregiver management of cardiac disease as evidenced by patient/caregiver ability to teach back cardiac management strategies by 04/11/22. SN Cardiovascular Condition In Progress No Patient/Caregiver will verbalize and/or demonstrate understanding of additional comorbidity(s) or disease process affecting plan of care Description: Patient/Caregiver will verbalize and/or demonstrate understanding of comorbidities effect on health conditions by 04/03/22. SN Other significant comorbidities/disease process In Progress No Interventions Intervention Associated Problem/Goal Status Variance Visit Notes Medication Education Description: Evaluate/instruct patient/caregiver on obtaining, storing, identifying and administering ordered medications as well as keeping accurate medication list in the home and adhereing to medication schedule Problem:Medication Education Goal:Patient/caregive r will demonstrate ability to obtain, store, identify and administer ordered medications, keep accurate medication list in home, and adhere to medication schedule Completed Patient and Caregiver instructed on adhering to medication schedule. Risk of Sepsis Description: Patient is at risk for sepsis. Monitor closely for s/s of sepsis. Problem:Sepsis Goal:Patient/caregive r will be able to identify and report symptoms of sepsis Completed SPO2 Description: Notify Dr. Cheung if pulse ox is <92% at rest. Problem:Physician Specific Parameters Goal:Patient to maintain parameters within physician-specified ranges throughout certification period Completed Instruct on individual fall risk factors and strategies to prevent falls and injuries caused by falls. Problem:Risk for Falls Goal:Manage Risk for falls Completed SN: Patient and Caregiver instructed on Eliminating Environmental Hazards: Keep pathways clear and Keep rooms and walkways well lit Managing Impaired Functional Mobility: Caregiver to provide assist with: Steps and ADL/IADLs Define patient s appetite/hydration status and implement strategies to improve compliance with prescribed diet and/or healthy nutrition. Problem:Nutrition/Hyd ration Goal:Manage Nutrition/Hydration Completed reinforced patient and caregiver on implementing strategies to comply with prescribed diet, healthy nutrition and adequate hydration Instruct on ongoing discharge plan Problem:Discharge Goal:Manage discharge planning Completed Ongoing Discharge plan: Discharge plan discussed with patient including frequency and duration for home SN and plan for transition to: live independently at home without ongoing services. Assess and instruct on measures to reduce edema Problem:SN Edema Goal:Patient will have improved edema management Completed patient and caregiver instructed on elevation and benefits of activity. Instruct and educate on knowledge deficits Problem:SN Learning Assessment Goal:Demonstrate understanding of education Completed patient and caregiver verbalize and/or demonstrate understanding of nursing education completed today. Education methods include: verbal cues and written instructions. Further education required to improve knowledge and compliance with cancer care management, cardiac disease management, fall prevention/home safety strategies, gastrointestinal care management, hematological care management, medication management, nutrition, ostomy care management, pain management, pulmonary disease management and surgical care precautions. Ostomy: Instruct Patient/Caregiver on Ostomy management Problem:SN Gastrointestinal Goal:Improved management of GI disease/condition Completed patient and caregiver instructed on the following: emptying and rinsing pouch, pouch change and peristomal skin care. Ostomy: Complete Pouch Change Description: Pouch to be changed: 2x a week and PRN. Pouch procedure: Remove old pouch, complete peristomal care, use skin prep, powder, paste, crusting technique and two piece, adjust ostomy procedure as needed for leaking/fit complications. Problem:SN Gastrointestinal Goal:Improved management of GI disease/condition Other (specify reason) not needed today Instruct on cardiovascular disease process and management of condition Description: Patient has following cardiac diagnosis(es): Hypertension and CAD. Problem:SN Cardiovascular Condition Goal:Improved management of cardiovascular disease Completed patient instructed on self monitoring & symptom reporting and DVT/PE prevention. Assess and instruct patient/caregiver on other significant comorbidity(s) or diseae process affecting plan of care Description: Significant comorbidity(s) or diseae process affecting plan of care: Pulmonary Embolism/DVT Problem:SN Other significant comorbidities/disease process Goal:Patient/Caregive r will verbalize and/or demonstrate understanding of additional comorbidity(s) or disease process affecting plan of care Completed patient and caregiver instructed on s/s exacerbation, self monitoring. documented in this encounter [facility] home Plan of care note* Visit Details Visit Type -SN ROUTINE Discipline -Senior Care Problems Problem Description Start Date Status Goals Interve ntions Medication Education Disciplines: Skilled Services 02/25/2022 Active 1 goal linked to scheduled/documen deyanira intervention 1 goal intervention scheduled/document ed in this visit Sepsis Disciplines: Skilled Services 02/25/2022 Active 1 goal linked to scheduled/documen deyanira intervention 1 goal intervention scheduled/document ed in this visit Cancer Disciplines: Skilled Services 02/25/2022 Active 1 goal linked to scheduled/documen deyanira intervention 1 goal intervention scheduled/document ed in this visit Physician Specific Parameters Disciplines: Skilled Services 02/25/2022 Active 1 goal linked to scheduled/documen deyanira intervention 1 goal intervention scheduled/document ed in this visit Risk for Falls Disciplines: Skilled Services 02/25/2022 Active 1 goal linked to scheduled/documen deyanira intervention 1 goal intervention scheduled/document ed in this visit Pain Disciplines: Skilled Services 02/25/2022 Active 1 goal linked to scheduled/documen deyanira intervention 1 goal intervention scheduled/document ed in this visit Nutrition/Hydration Disciplines: Skilled Services 02/25/2022 Active 1 goal linked to scheduled/documen deyanira intervention 1 goal intervention scheduled/document ed in this visit Discharge Disciplines: Skilled Services 02/25/2022 Active 1 goal linked to scheduled/documen deyanira intervention 1 goal intervention scheduled/document ed in this visit Advance Directives Disciplines: Skilled Services 02/25/2022 Active 1 goal linked to scheduled/documen deyanira intervention 1 goal intervention scheduled/document ed in this visit SN Learning Assessment Disciplines: 02/25/2022 Active 1 goal linked to scheduled/documen deyanira intervention 1 goal intervention scheduled/document ed in this visit SN Gastrointestinal Disciplines: 02/25/2022 Active 1 goal linked to scheduled/documen deyanira intervention 2 goal interventions scheduled/document ed in this visit SN Cardiovascular Condition Disciplines: 02/25/2022 Active 1 goal linked to scheduled/documen deyanira intervention 1 goal intervention scheduled/document ed in this visit SN Other significant comorbidities/disea se process Disciplines: 03/13/2022 Active 1 goal linked to scheduled/documen deyanira intervention 1 goal intervention scheduled/document ed in this visit Goals Goal Associated Problem Outcome Goal Met? Visit Notes Patient/caregiver will demonstrate ability to obtain, store, identify and administer ordered medications, keep accurate medication list in home, and adhere to medication schedule Description: Patient/caregiver will demonstrate ability to obtain, store, identify and administer ordered medications, keep accurate medication list in home, and adhere to medication schedule by 04/25/22. Medication Education No Patient/caregiver will be able to identify and report symptoms of sepsis Description: Patient/caregiver will be able to identify signs/symptoms of sepsis infection and will verbalize actions to take if suspected by 04/25/22. Sepsis No Improve symptom management of cancer and side effects of treatment Description: Patient/caregiver will verbalize understanding of cancer diagnosis, side effects of treatment, and management of symptoms by 04/25/22. Cancer No Patient to maintain parameters within physician-specified ranges throughout certification period Physician Specific Parameters No Manage Risk for falls Description: Patient/caregiver will verbalize knowledge of individualized fall prevention strategies by 04/25/22. Risk for Falls No Manage Pain Description: Patient/caregiver will verbalize knowledge and understanding of appropriate techniques to control pain, including pain medication and non-pharmacological techniques. Patient will verbalize or demonstrate an acceptable level of pain as evidenced by a pain score of 0-3/10 and improvement in ability to perform activities of daily living to be achieved by 04/25/22. Pain No Manage Nutrition/Hydration Description: Patient/caregiver will verbalize/demonstrate knowledge of prescribed diet and/or healthy nutrition to be achieved by 04/25/22. Nutrition/Hydration No Manage discharge planning Description: Patient/caregiver will verbalize understanding of ongoing discharge plan provided related to disease management, arrangements for outpatient and/or community services, obtaining medications, supplies, and DME, as needed throughout certification period. Discharge No Patient/caregiver will make healthcare providers aware of and any changes to Advance Directives throughout certification period Advance Directives No Demonstrate understanding of education Description: Patient and/or caregiver will verbalize understanding of educational instruction provided throughout certification period. SN Learning Assessment No Improved management of GI disease/condition Description: Patient/Caregiver will demonstrate understanding of GI education as evidenced by improved management of gastrointestinal disease/condition by 04/11/22. SN Gastrointestinal No Improved management of cardiovascular disease Description: Improve patient/caregiver management of cardiac disease as evidenced by patient/caregiver ability to teach back cardiac management strategies by 04/11/22. SN Cardiovascular Condition No Patient/Caregiver will verbalize and/or demonstrate understanding of additional comorbidity(s) or disease process affecting plan of care Description: Patient/Caregiver will verbalize and/or demonstrate understanding of comorbidities effect on health conditions by 04/03/22. SN Other significant comorbidities/disease process No Interventions Intervention Associated Problem/Goal Status Variance Visit Notes Medication Education Description: Evaluate/instruct patient/caregiver on obtaining, storing, identifying and administering ordered medications as well as keeping accurate medication list in the home and adhereing to medication schedule Problem:Medication Education Goal:Patient/caregiver will demonstrate ability to obtain, store, identify and administer ordered medications, keep accurate medication list in home, and adhere to medication schedule Completed Patient instructed on importance of keeping accurate medication list in home, adhering to medication schedule and proper storage of medications. Risk of Sepsis Description: Patient is at risk for sepsis. Monitor closely for s/s of sepsis. Problem:Sepsis Goal:Patient/caregiver will be able to identify and report symptoms of sepsis Completed Instruct patient/caregiver on cancer diagnosis, side effects of treatment, and management of symptoms Description: Instruct patient/caregiver on rectal cancer diagnosis, side effects of treatment and management of symptoms. Problem:Cancer Goal:Improve symptom management of cancer and side effects of treatment Completed Patient instructed on cancer disease process, management of treatment side effects and management of cancer symptoms. SPO2 Description: Notify Dr. Cheung if pulse ox is <92% at rest. Problem:Physician Specific Parameters Goal:Patient to maintain parameters within physician-specified ranges throughout certification period Completed Instruct on individual fall risk factors and strategies to prevent falls and injuries caused by falls. Problem:Risk for Falls Goal:Manage Risk for falls Completed SN: Patient instructed on Eliminating Environmental Hazards: Keep pathways clear, Keep rooms and walkways well lit, Wear supportive shoes or non-skid socks and Keep frequently used items within reach Instruct on pain and instruct on strategies to control pain Problem:Pain Goal:Manage Pain Completed patient instructed on techniques to control pain including Pharmacological measures and Non-Pharmacological measures; rest, positioning/elevation and mobility/therapeutic exercise. Define patient s appetite/hydration status and implement strategies to improve compliance with prescribed diet and/or healthy nutrition. Problem:Nutrition/Hydr ation Goal:Manage Nutrition/Hydration Completed reinforced patient on implementing strategies to comply with prescribed diet, healthy nutrition and adequate hydration Instruct on ongoing discharge plan Problem:Discharge Goal:Manage discharge planning Completed Ongoing Discharge plan: Discharge plan discussed with patient including frequency and duration for home SN and plan for transition to: live independently at home without ongoing services. Determine patient's Advance Directive Status Description: Patient does have advanced directives, living will and helathcare DPOA available in home Problem:Advance Directives Goal:Patient/caregiver will make healthcare providers aware of and any changes to Advance Directives throughout certification period Completed Discussed Advance Directives with Patient and/or Caregiver. Referred patient to Home Care handbook for further information on Healthcare DPOA & Living Will. Instruct and educate on knowledge deficits Problem:SN Learning Assessment Goal:Demonstrate understanding of education Completed patient verbalize and/or demonstrate understanding of nursing education completed today. Education methods include: verbal cues. Further education required to improve knowledge and compliance with cancer care management, fall prevention/home safety strategies, medication management and ostomy care management. Ostomy: Complete Pouch Change Description: Pouch to be changed: 2x a week and PRN. Pouch procedure: Remove old pouch, complete peristomal care, use skin prep, powder, paste, crusting technique and two piece, adjust ostomy procedure as needed for leaking/fit complications. Problem:SN Gastrointestinal Goal:Improved management of GI disease/condition Completed Ostomy: Instruct Patient/Caregiver on Ostomy management Problem:SN Gastrointestinal Goal:Improved management of GI disease/condition Completed patient instructed on the following: emptying and rinsing pouch, pouch removal, pouch change, disposal of used pouch and appliance, peristomal skin care and ostomy precautions. Instruct on cardiovascular disease process and management of condition Description: Patient has following cardiac diagnosis(es): Hypertension and CAD. Problem:SN Cardiovascular Condition Goal:Improved management of cardiovascular disease Completed patient instructed on cardiac disease process, self monitoring & symptom reporting, DVT/PE prevention and Cardiac Diet. Assess and instruct patient/caregiver on other significant comorbidity(s) or diseae process affecting plan of care Description: Significant comorbidity(s) or diseae process affecting plan of care: Pulmonary Embolism/DVT Problem:SN Other significant comorbidities/disease process Goal:Patient/Caregiver will verbalize and/or demonstrate understanding of additional comorbidity(s) or disease process affecting plan of care Completed patient [facility] PE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 Discipline -Physical Therapy Problems Problem Description Start Date Status Goals Interve ntions Medication Education Disciplines: Skilled Services 02/25/2022 Active 1 goal linked to scheduled/document ed intervention 1 goal intervention scheduled/document ed in this visit Sepsis Disciplines: Skilled Services 02/25/2022 Active 1 goal linked to scheduled/document ed intervention 1 goal intervention scheduled/document ed in this visit Cancer Disciplines: Skilled Services 02/25/2022 Active 1 goal linked to scheduled/document ed intervention 1 goal intervention scheduled/document ed in this visit Physician Specific Parameters Disciplines: Skilled Services 02/25/2022 Active 1 goal linked to scheduled/document ed intervention 1 goal intervention scheduled/document ed in this visit Risk for Falls Disciplines: Skilled Services 02/25/2022 Active 1 goal linked to scheduled/document ed intervention 1 goal intervention scheduled/document ed in this visit Pain Disciplines: Skilled Services 02/25/2022 Active 1 goal linked to scheduled/document ed intervention 1 goal intervention scheduled/document ed in this visit PT Impaired Aerobic Capacity Disciplines: PT 03/12/2022 Active 1 goal linked to scheduled/document ed intervention 1 goal intervention scheduled/document ed in this visit PT Impaired muscle performance and/or ROM Disciplines: PT 03/12/2022 Active 1 goal linked to scheduled/document ed intervention 1 goal intervention scheduled/document ed in this visit PT Impaired gait Disciplines: PT 03/12/2022 Active 1 goal linked to scheduled/document ed intervention 1 goal intervention scheduled/document ed in this visit PT Learning Assessment Disciplines: PT 03/12/2022 Active 1 goal linked to scheduled/document ed intervention 1 goal intervention scheduled/document ed in this visit Goals Goal Associated Problem Outcome Goal Met? Visit Notes Patient/caregiver will demonstrate ability to obtain, store, identify and administer ordered medications, keep accurate medication list in home, and adhere to medication schedule Description: Patient/caregiver will demonstrate ability to obtain, store, identify and administer ordered medications, keep accurate medication list in home, and adhere to medication schedule by 04/25/22. Medication Education No Patient/caregiver will be able to identify and report symptoms of sepsis Description: Patient/caregiver will be able to identify signs/symptoms of sepsis infection and will verbalize actions to take if suspected by 04/25/22. Sepsis No Improve symptom management of cancer and side effects of treatment Description: Patient/caregiver will verbalize understanding of cancer diagnosis, side effects of treatment, and management of symptoms by 04/25/22. Cancer No Patient to maintain parameters within physician-specified ranges throughout certification period Physician Specific Parameters No Manage Risk for falls Description: Patient/caregiver will verbalize knowledge of individualized fall prevention strategies by 04/25/22. Risk for Falls No Manage Pain Description: Patient/caregiver will verbalize knowledge and understanding of appropriate techniques to control pain, including pain medication and non-pharmacological techniques. Patient will verbalize or demonstrate an acceptable level of pain as evidenced by a pain score of 0-3/10 and improvement in ability to perform activities of daily living to be achieved by 04/25/22. Pain No Improved Aerobic Capacity Description: LTG: Patient will demonstrate improved aerobic capacity to meet functional goals as evidenced by the ability to complete a 2 Minute Walk Test to be achieved by 04/25/22. LTG: Patient will demonstrate improved aerobic capacity to meet functional goals as evidenced by Rate of Percieved Exertion (RPE) of 3/10 during walking activity, to be achieved by 04/25/22. . PT Impaired Aerobic Capacity No Improved Muscle Performance and/or ROM Description: LTG: Patient will demonstrate improved muscle performance to meet functional goals as evidenced by ability to tolerate 10-15 min of standing activity, to be achieved by 04/25/22. . STG: Patient and/or caregiver will verbalize/demonstrate independence with home exercise program, to improve functional mobility, to be achieved by 03/28/22. PT Impaired muscle performance and/or ROM No Improved Gait Description: LTG: Patient will demonstrate improved gait ability as evidenced by ambulation 150 feet with no device independently, to return to safe household and community ambulation, in order to return to plf , to be achieved by 04/25/22. . PT Impaired gait No Demonstrate understanding of education Description: Patient and/or caregiver will understand educational instruction to be achieved by 04/25/22. . PT Learning Assessment No Interventions Intervention Associated Problem/Goal Status Variance Visit Notes Medication Education Description: Evaluate/instruct patient/caregiver on obtaining, storing, identifying and administering ordered medications as well as keeping accurate medication list in the home and adhereing to medication schedule Problem:Medication Education Goal:Patient/caregive r will demonstrate ability to obtain, store, identify and administer ordered medications, keep accurate medication list in home, and adhere to medication schedule Completed Patient and Caregiver instructed on importance of keeping accurate medication list in home and adhering to medication schedule. Risk of Sepsis Description: Patient is at risk for sepsis. Monitor closely for s/s of sepsis. Problem:Sepsis Goal:Patient/caregive r will be able to identify and report symptoms of sepsis Completed Instruct patient/caregiver on cancer diagnosis, side effects of treatment, and management of symptoms Description: Instruct patient/caregiver on rectal cancer diagnosis, side effects of treatment and management of symptoms. Problem:Cancer Goal:Improve symptom management of cancer and side effects of treatment Completed Patient instructed on management of cancer symptoms. SPO2 Description: Notify Dr. Cheung if pulse ox is <92% at rest. Problem:Physician Specific Parameters Goal:Patient to maintain parameters within physician-specified ranges throughout certification period Completed Instruct on individual fall risk factors and strategies to prevent falls and injuries caused by falls. Problem:Risk for Falls Goal:Manage Risk for falls Completed PT: Patient instructed on Managing Impaired Functional Mobility: Modification of current activities: rest when needed Instruct on pain and instruct on strategies to control pain Problem:Pain Goal:Manage Pain Completed patient instructed on techniques to control pain including Non-Pharmacological measures; rest. Physical Therapy Aerobic Capacity Training Problem:PT Impaired Aerobic Capacity Goal:Improved Aerobic Capacity Completed patient instructed on utilization of the Rate of Percieved Exertion (RPE) scale, to not exceed 3-6/10 indicating moderate to heavy intensity of activity. Developed, implemented, and instructed patient on physical therapy interventions completing 8 minutes of continuous activity. Physical Therapy Therapeutic Exercises Problem:PT Impaired muscle performance and/or ROM Goal:Improved Muscle Performance and/or ROM Completed patient instructed on strengthening exercises including seated laq , hip flexion and adducrtion, and hernando; toe raises, standing heel toe raises, hip abd, and hamstring curls x's 10each with verbal cues for correct form. patient instructed to perform home exercise program twice a day which included above exercises. Physical Therapy Gait Training Problem:PT Impaired gait Goal:Improved Gait Completed Gait training and instruction to patient on safe ambulation with no device for 2x's 40 feet with supervision, with verbal cues for corrections of gait deviations including pacing for energy consertvation . Instruct and educate on knowledge deficits Problem:PT Learning Assessment Goal:Demonstrate understanding of education Completed patient verbalize and/or demonstrate understanding of physical therapy education including home exercise program. Education methods include: verbal cues. Further education required to improve knowledge and compliance with surgical precautions and home exercise program. [facility] Visit Details Visit Type -SN ROUTINE Discipline -Senior Care Problems Problem Description Start Date Status Goals Interve ntions Medication Education Disciplines: Skilled Services 02/25/2022 Active 1 goal linked to scheduled/documen deyanira intervention 1 goal intervention scheduled/document ed in this visit Sepsis Disciplines: Skilled Services 02/25/2022 Active 1 goal linked to scheduled/documen deyanira intervention 1 goal intervention scheduled/document ed in this visit Physician Specific Parameters Disciplines: Skilled Services 02/25/2022 Active 1 goal linked to scheduled/documen deyanira intervention 1 goal intervention scheduled/document ed in this visit Risk for Falls Disciplines: Skilled Services 02/25/2022 Active 1 goal linked to scheduled/documen deyanira intervention 1 goal intervention scheduled/document ed in this visit Pain Disciplines: Skilled Services 02/25/2022 Active 1 goal linked to scheduled/documen deyanira intervention 1 goal intervention scheduled/document ed in this visit Nutrition/Hydration Disciplines: Skilled Services 02/25/2022 Active 1 goal linked to scheduled/documen deyanira intervention 1 goal intervention scheduled/document ed in this visit SN Learning Assessment Disciplines: 02/25/2022 Active 1 goal linked to scheduled/documen deyanira intervention 1 goal intervention scheduled/document ed in this visit SN Gastrointestinal Disciplines: 02/25/2022 Active 1 goal linked to scheduled/documen deyanira intervention 2 goal interventions scheduled/document ed in this visit SN Cardiovascular Condition Disciplines: 02/25/2022 Active 1 goal linked to scheduled/documen deyanira intervention 1 goal intervention scheduled/document ed in this visit SN Other significant comorbidities/disea se process Disciplines: 03/13/2022 Active 1 goal linked to scheduled/documen deyanira intervention 1 goal intervention scheduled/document ed in this visit Goals Goal Associated Problem Outcome Goal Met? Visit Notes Patient/caregiver will demonstrate ability to obtain, store, identify and administer ordered medications, keep accurate medication list in home, and adhere to medication schedule Description: Patient/caregiver will demonstrate ability to obtain, store, identify and administer ordered medications, keep accurate medication list in home, and adhere to medication schedule by 04/25/22. Medication Education In Progress No Patient/caregiver will be able to identify and report symptoms of sepsis Description: Patient/caregiver will be able to identify signs/symptoms of sepsis infection and will verbalize actions to take if suspected by 04/25/22. Sepsis In Progress No Patient to maintain parameters within physician-specified ranges throughout certification period Physician Specific Parameters In Progress No Manage Risk for falls Description: Patient/caregiver will verbalize knowledge of individualized fall prevention strategies by 04/25/22. Risk for Falls In Progress No Manage Pain Description: Patient/caregiver will verbalize knowledge and understanding of appropriate techniques to control pain, including pain medication and non-pharmacological techniques. Patient will verbalize or demonstrate an acceptable level of pain as evidenced by a pain score of 0-3/10 and improvement in ability to perform activities of daily living to be achieved by 04/25/22. Pain In Progress No Manage Nutrition/Hydration Description: Patient/caregiver will verbalize/demonstrate knowledge of prescribed diet and/or healthy nutrition to be achieved by 04/25/22. Nutrition/Hydration In Progress No Demonstrate understanding of education Description: Patient and/or caregiver will verbalize understanding of educational instruction provided throughout certification period. SN Learning Assessment In Progress No Improved management of GI disease/condition Description: Patient/Caregiver will demonstrate understanding of GI education as evidenced by improved management of gastrointestinal disease/condition by 04/11/22. SN Gastrointestinal In Progress No Improved management of cardiovascular disease Description: Improve patient/caregiver management of cardiac disease as evidenced by patient/caregiver ability to teach back cardiac management strategies by 04/11/22. SN Cardiovascular Condition In Progress No Patient/Caregiver will verbalize and/or demonstrate understanding of additional comorbidity(s) or disease process affecting plan of care Description: Patient/Caregiver will verbalize and/or demonstrate understanding of comorbidities effect on health conditions by 04/03/22. SN Other significant comorbidities/disease process In Progress No Interventions Intervention Associated Problem/Goal Status Variance Visit Notes Medication Education Description: Evaluate/instruct patient/caregiver on obtaining, storing, identifying and administering ordered medications as well as keeping accurate medication list in the home and adhereing to medication schedule Problem:Medication Education Goal:Patient/caregiver will demonstrate ability to obtain, store, identify and administer ordered medications, keep accurate medication list in home, and adhere to medication schedule Completed Patient instructed on adhering to medication schedule. Risk of Sepsis Description: Patient is at risk for sepsis. Monitor closely for s/s of sepsis. Problem:Sepsis Goal:Patient/caregiver will be able to identify and report symptoms of sepsis Completed SPO2 Description: Notify Dr. Cheung if pulse ox is <92% at rest. Problem:Physician Specific Parameters Goal:Patient to maintain parameters within physician-specified ranges throughout certification period Completed Instruct on individual fall risk factors and strategies to prevent falls and injuries caused by falls. Problem:Risk for Falls Goal:Manage Risk for falls Completed SN: Patient instructed on Managing Impaired Functional Mobility: Caregiver to provide assist with: Steps Instruct on pain and instruct on strategies to control pain Problem:Pain Goal:Manage Pain Completed patient instructed on techniques to control pain including Non-Pharmacological measures; rest. Define patient s appetite/hydration status and implement strategies to improve compliance with prescribed diet and/or healthy nutrition. Problem:Nutrition/Hydr ation Goal:Manage Nutrition/Hydration Completed reinforced patient on implementing strategies to comply with prescribed diet, healthy nutrition and adequate hydration Instruct and educate on knowledge deficits Problem:SN Learning Assessment Goal:Demonstrate understanding of education Completed patient and caregiver verbalize and/or demonstrate understanding of nursing education completed today. Education methods include: verbal cues, tactile cues, visual cues and teach back. Further education required to improve knowledge and compliance with cardiac disease management, fall prevention/home safety strategies, gastrointestinal care management, hematological care management, medication management, nutrition, pain management and pulmonary disease management. Ostomy: Complete Pouch Change Description: Pouch to be changed: 2x a week and PRN. Pouch procedure: Remove old pouch, complete peristomal care, use skin prep, powder, paste, crusting technique and two piece, adjust ostomy procedure as needed for leaking/fit complications. Problem:SN Gastrointestinal Goal:Improved management of GI disease/condition Completed Ostomy: Instruct Patient/Caregiver on Ostomy management Problem:SN Gastrointestinal Goal:Improved management of GI disease/condition Completed patient and caregiver instructed on the following: pouch change and peristomal skin care. Instruct on cardiovascular disease process and management of condition Description: Patient has following cardiac diagnosis(es): Hypertension and CAD. Problem:SN Cardiovascular Condition Goal:Improved management of cardiovascular disease Completed patient instructed on self monitoring & symptom reporting. 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 documented in this encounter [facility] Plan of care note* Visit Details Visit Type -SCOOP DRIVER ROUTINE Discipline -Physical Therapy Problems Problem Description Start Date Status Goals Interve ntions Medication Education Disciplines: Skilled Services 02/25/2022 Active 1 goal linked to scheduled/document ed intervention 1 goal intervention scheduled/document ed in this visit Sepsis Disciplines: Skilled Services 02/25/2022 Active 1 goal linked to scheduled/document ed intervention 1 goal intervention scheduled/document ed in this visit Physician Specific Parameters Disciplines: Skilled Services 02/25/2022 Active 1 goal linked to scheduled/document ed intervention 1 goal intervention scheduled/document ed in this visit Risk for Falls Disciplines: Skilled Services 02/25/2022 Active 1 goal linked to scheduled/document ed intervention 1 goal intervention scheduled/document ed in this visit Pain Disciplines: Skilled Services 02/25/2022 Active 1 goal linked to scheduled/document ed intervention 1 goal intervention scheduled/document ed in this visit Discharge Disciplines: Skilled Services 02/25/2022 Active 1 goal linked to scheduled/document ed intervention 1 goal intervention scheduled/document ed in this visit PT Impaired muscle performance and/or ROM Disciplines: PT 03/12/2022 Active 1 goal linked to scheduled/document ed intervention 1 goal intervention scheduled/document ed in this visit PT Impaired gait Disciplines: PT 03/12/2022 Active 1 goal linked to scheduled/document ed intervention 1 goal intervention scheduled/document ed in this visit PT Impaired balance Disciplines: PT 03/12/2022 Active 1 goal linked to scheduled/document ed intervention 1 goal intervention scheduled/document ed in this visit PT Learning Assessment Disciplines: PT 03/12/2022 Active 1 goal linked to scheduled/document ed intervention 1 goal intervention scheduled/document ed in this visit Goals Goal Associated Problem Outcome Goal Met? Visit Notes Patient/caregiver will demonstrate ability to obtain, store, identify and administer ordered medications, keep accurate medication list in home, and adhere to medication schedule Description: Patient/caregiver will demonstrate ability to obtain, store, identify and administer ordered medications, keep accurate medication list in home, and adhere to medication schedule by 04/25/22. Medication Education No Patient/caregiver will be able to identify and report symptoms of sepsis Description: Patient/caregiver will be able to identify signs/symptoms of sepsis infection and will verbalize actions to take if suspected by 04/25/22. Sepsis No Patient to maintain parameters within physician-specified ranges throughout certification period Physician Specific Parameters No Manage Risk for falls Description: Patient/caregiver will verbalize knowledge of individualized fall prevention strategies by 04/25/22. Risk for Falls No Manage Pain Description: Patient/caregiver will verbalize knowledge and understanding of appropriate techniques to control pain, including pain medication and non-pharmacological techniques. Patient will verbalize or demonstrate an acceptable level of pain as evidenced by a pain score of 0-3/10 and improvement in ability to perform activities of daily living to be achieved by 04/25/22. Pain No Manage discharge planning Description: Patient/caregiver will verbalize understanding of ongoing discharge plan provided related to disease management, arrangements for outpatient and/or community services, obtaining medications, supplies, and DME, as needed throughout certification period. Discharge No Improved Muscle Performance and/or ROM Description: LTG: Patient will demonstrate improved muscle performance to meet functional goals as evidenced by ability to tolerate 10-15 min of standing activity, to be achieved by 04/25/22. . STG: Patient and/or caregiver will verbalize/demonstrate independence with home exercise program, to improve functional mobility, to be achieved by 03/28/22. PT Impaired muscle performance and/or ROM No Improved Gait Description: LTG: Patient will demonstrate improved gait ability as evidenced by ambulation 150 feet with no device independently, to return to safe household and community ambulation, in order to return to plf , to be achieved by 04/25/22. . PT Impaired gait No Improved Balance Description: LTG: Patient will demonstrate improved standing balance to meet functional goals as evidenced by TUG score of <15 to be achieved by 04/25/22. . PT Impaired balance No Demonstrate understanding of education Description: Patient and/or caregiver will understand educational instruction to be achieved by 04/25/22. . PT Learning Assessment No Interventions Intervention Associated Problem/Goal Status Variance Visit Notes Medication Education Description: Evaluate/instruct patient/caregiver on obtaining, storing, identifying and administering ordered medications as well as keeping accurate medication list in the home and adhereing to medication schedule Problem:Medication Education Goal:Patient/caregive r will demonstrate ability to obtain, store, identify and administer ordered medications, keep accurate medication list in home, and adhere to medication schedule Completed Patient and Caregiver instructed on importance of keeping accurate medication list in home and adhering to medication schedule. Risk of Sepsis Description: Patient is at risk for sepsis. Monitor closely for s/s of sepsis. Problem:Sepsis Goal:Patient/caregive r will be able to identify and report symptoms of sepsis Completed SPO2 Description: Notify Dr. Cheung if pulse ox is <92% at rest. Problem:Physician Specific Parameters Goal:Patient to maintain parameters within physician-specified ranges throughout certification period Completed Instruct on individual fall risk factors and strategies to prevent falls and injuries caused by falls. Problem:Risk for Falls Goal:Manage Risk for falls Completed PT: Patient instructed on Managing Impaired Functional Mobility: Modification of current activities: restung when fatigued Instruct on pain and instruct on strategies to control pain Problem:Pain Goal:Manage Pain Completed patient instructed on techniques to control pain including Non-Pharmacological measures; rest. Instruct on ongoing discharge plan Problem:Discharge Goal:Manage discharge planning Completed Ongoing Discharge plan: Discharge plan discussed with patient including frequency and duration for home PT and plan for transition to: live independently at home without ongoing services. Physical Therapy Therapeutic Exercises Problem:PT Impaired muscle performance and/or ROM Goal:Improved Muscle Performance and/or ROM Completed patient instructed on strengthening exercises including standing heel toe raises, hiop abd and fklexion, hamstring curks and mininsits x's 10each. restorator x's 10min seated faq, hip abd x's 15 each with verbal cues for posture and pace. patient instructed to perform home exercise program twice a day which included above exercises. Physical Therapy Gait Training Problem:PT Impaired gait Goal:Improved Gait Completed Gait training and instruction to patient on safe ambulation with no device for household distances with supervision, with verbal cues for corrections of gait deviations including pacing for safety and energy conservation. Physical Therapy Balance Training Problem:PT Impaired balance Goal:Improved Balance Completed Developed, implemented, and instructed patient on standing balance exercises including lateral stepping at counter 10feet x's 2 w/ unilateral support . Instruct and educate on knowledge deficits Problem:PT Learning Assessment Goal:Demonstrate understanding of education Completed patient verbalize and/or demonstrate understanding of physical therapy education including home exercise program. Education methods include: verbal cues. Further education required to improve knowledge and compliance with home exercise program. [facility] Visit Details Visit Type -SN ROUTINE Discipline -Senior Care Problems Problem Description Start Date Status Goals Interve ntions Medication Education Disciplines: Skilled Services 02/25/2022 Active 1 goal linked to scheduled/documen deyanira intervention 1 goal intervention scheduled/document ed in this visit Sepsis Disciplines: Skilled Services 02/25/2022 Active 1 goal linked to scheduled/documen deyanira intervention 1 goal intervention scheduled/document ed in this visit Physician Specific Parameters Disciplines: Skilled Services 02/25/2022 Active 1 goal linked to scheduled/documen deyanira intervention 1 goal intervention scheduled/document ed in this visit Risk for Falls Disciplines: Skilled Services 02/25/2022 Active 1 goal linked to scheduled/documen deyanira intervention 1 goal intervention scheduled/document ed in this visit Nutrition/Hydration Disciplines: Skilled Services 02/25/2022 Active 1 goal linked to scheduled/documen deyanira intervention 1 goal intervention scheduled/document ed in this visit SN Learning Assessment Disciplines: SN 02/25/2022 Active 1 goal linked to scheduled/documen deyanira intervention 1 goal intervention scheduled/document ed in this visit SN Gastrointestinal Disciplines: SN 02/25/2022 Active 1 goal linked to scheduled/documen deyanira intervention 2 goal interventions scheduled/document ed in this visit SN Cardiovascular Condition Disciplines: SN 02/25/2022 Active 1 goal linked to scheduled/documen deyanira intervention 1 goal intervention scheduled/document ed in this visit SN Other significant comorbidities/disea se process Disciplines: SN 03/13/2022 Active 1 goal linked to scheduled/documen deyanira intervention 1 goal intervention scheduled/document ed in this visit Goals Goal Associated Problem Outcome Goal Met? Visit Notes Patient/caregiver will demonstrate ability to obtain, store, identify and administer ordered medications, keep accurate medication list in home, and adhere to medication schedule Description: Patient/caregiver will demonstrate ability to obtain, store, identify and administer ordered medications, keep accurate medication list in home, and adhere to medication schedule by 04/25/22. Medication Education No Patient/caregiver will be able to identify and report symptoms of sepsis Description: Patient/caregiver will be able to identify signs/symptoms of sepsis infection and will verbalize actions to take if suspected by 04/25/22. Sepsis No Patient to maintain parameters within physician-specified ranges throughout certification period Physician Specific Parameters No Manage Risk for falls Description: Patient/caregiver will verbalize knowledge of individualized fall prevention strategies by 04/25/22. Risk for Falls No Manage Nutrition/Hydration Description: Patient/caregiver will verbalize/demonstrate knowledge of prescribed diet and/or healthy nutrition to be achieved by 04/25/22. Nutrition/Hydration No Demonstrate understanding of education Description: Patient and/or caregiver will verbalize understanding of educational instruction provided throughout certification period. SN Learning Assessment No Improved management of GI disease/condition Description: Patient/Caregiver will demonstrate understanding of GI education as evidenced by improved management of gastrointestinal disease/condition by 04/11/22. SN Gastrointestinal No Improved management of cardiovascular disease Description: Improve patient/caregiver management of cardiac disease as evidenced by patient/caregiver ability to teach back cardiac management strategies by 04/11/22. SN Cardiovascular Condition No Patient/Caregiver will verbalize and/or demonstrate understanding of additional comorbidity(s) or disease process affecting plan of care Description: Patient/Caregiver will verbalize and/or demonstrate understanding of comorbidities effect on health conditions by 04/03/22. SN Other significant comorbidities/disease process No Interventions Intervention Associated Problem/Goal Status Variance Visit Notes Medication Education Description: Evaluate/instruct patient/caregiver on obtaining, storing, identifying and administering ordered medications as well as keeping accurate medication list in the home and adhereing to medication schedule Problem:Medication Education Goal:Patient/caregiver will demonstrate ability to obtain, store, identify and administer ordered medications, keep accurate medication list in home, and adhere to medication schedule Completed Patient instructed on adhering to medication schedule. Risk of Sepsis Description: Patient is at risk for sepsis. Monitor closely for s/s of sepsis. Problem:Sepsis Goal:Patient/caregiver will be able to identify and report symptoms of sepsis Completed SPO2 Description: Notify Dr. Cheung if pulse ox is <92% at rest. Problem:Physician Specific Parameters Goal:Patient to maintain parameters within physician-specified ranges throughout certification period Completed Instruct on individual fall risk factors and strategies to prevent falls and injuries caused by falls. Problem:Risk for Falls Goal:Manage Risk for falls Completed SN: Patient instructed on Eliminating Environmental Hazards: Keep pathways clear and Keep rooms and walkways well lit Managing Impaired Functional Mobility: Caregiver to provide assist with: Steps Define patient s appetite/hydration status and implement strategies to improve compliance with prescribed diet and/or healthy nutrition. Problem:Nutrition/Hydr ation Goal:Manage Nutrition/Hydration Completed reinforced patient on implementing strategies to comply with healthy nutrition and adequate hydration Instruct and educate on knowledge deficits Problem:SN Learning Assessment Goal:Demonstrate understanding of education Completed patient verbalize and/or demonstrate understanding of nursing education completed today. Education methods include: verbal cues, tactile cues, visual cues and teach back. Further education required to improve knowledge and compliance with fall prevention/home safety strategies, gastrointestinal care management, hematological care management, medication management and nutrition. Ostomy: Complete Pouch Change Description: Pouch to be changed: 2x a week and PRN. Pouch procedure: Remove old pouch, complete peristomal care, use skin prep, powder, paste, crusting technique and two piece, adjust ostomy procedure as needed for leaking/fit complications. Problem:SN Gastrointestinal Goal:Improved management of GI disease/condition Completed Ostomy: Instruct Patient/Caregiver on Ostomy management Problem:SN Gastrointestinal Goal:Improved management of GI disease/condition Completed patient instructed on the following: pouch removal, pouch change and peristomal skin care. Instruct on cardiovascular disease process and management of condition Description: Patient has following cardiac diagnosis(es): Hypertension and CAD. Problem:SN Cardiovascular Condition Goal:Improved management of cardiovascular disease Completed patient instructed on self monitoring & symptom reporting. Assess and instruct patient/caregiver on other significant comorbidity(s) or diseae process affecting plan of care Description: Significant comorbidity(s) or diseae process affecting plan of care: Pulmonary Embolism/DVT Problem:SN Other significant comorbidities/disease process Goal:Patient/Caregiver will verbalize and/or demonstrate understanding of additional comorbidity(s) or disease process affecting plan of care Completed patient instructed on s/s DVT exacerbation.. 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 Discipline -Physical Therapy Problems Problem Description Start Date Status Goals Interve ntions Medication Education Disciplines: Skilled Services 02/25/2022 Active 1 goal linked to scheduled/document ed intervention 1 goal intervention scheduled/document ed in this visit Sepsis Disciplines: Skilled Services 02/25/2022 Active 1 goal linked to scheduled/document ed intervention 1 goal intervention scheduled/document ed in this visit Physician Specific Parameters Disciplines: Skilled Services 02/25/2022 Active 1 goal linked to scheduled/document ed intervention 1 goal intervention scheduled/document ed in this visit Risk for Falls Disciplines: Skilled Services 02/25/2022 Active 1 goal linked to scheduled/document ed intervention 1 goal intervention scheduled/document ed in this visit Pain Disciplines: Skilled Services 02/25/2022 Active 1 goal linked to scheduled/document ed intervention 1 goal intervention scheduled/document ed in this visit Discharge Disciplines: Skilled Services 02/25/2022 Active 1 goal linked to scheduled/document ed intervention 1 goal intervention scheduled/document ed in this visit PT Impaired Aerobic Capacity Disciplines: PT 03/12/2022 Active 1 goal linked to scheduled/document ed intervention 1 goal intervention scheduled/document ed in this visit PT Impaired muscle performance and/or ROM Disciplines: PT 03/12/2022 Active 1 goal linked to scheduled/document ed intervention 1 goal intervention scheduled/document ed in this visit PT Impaired gait Disciplines: PT 03/12/2022 Active 1 goal linked to scheduled/document ed intervention 1 goal intervention scheduled/document ed in this visit PT Impaired balance Disciplines: PT 03/12/2022 Active 1 goal linked to scheduled/document ed intervention 1 goal intervention scheduled/document ed in this visit PT Learning Assessment Disciplines: PT 03/12/2022 Active 1 goal linked to scheduled/document ed intervention 1 goal intervention scheduled/document ed in this visit Goals Goal Associated Problem Outcome Goal Met? Visit Notes Patient/caregiver will demonstrate ability to obtain, store, identify and administer ordered medications, keep accurate medication list in home, and adhere to medication schedule Description: Patient/caregiver will demonstrate ability to obtain, store, identify and administer ordered medications, keep accurate medication list in home, and adhere to medication schedule by 04/25/22. Medication Education No Patient/caregiver will be able to identify and report symptoms of sepsis Description: Patient/caregiver will be able to identify signs/symptoms of sepsis infection and will verbalize actions to take if suspected by 04/25/22. Sepsis No Patient to maintain parameters within physician-specified ranges throughout certification period Physician Specific Parameters No Manage Risk for falls Description: Patient/caregiver will verbalize knowledge of individualized fall prevention strategies by 04/25/22. Risk for Falls No Manage Pain Description: Patient/caregiver will verbalize knowledge and understanding of appropriate techniques to control pain, including pain medication and non-pharmacological techniques. Patient will verbalize or demonstrate an acceptable level of pain as evidenced by a pain score of 0-3/10 and improvement in ability to perform activities of daily living to be achieved by 04/25/22. Pain No Manage discharge planning Description: Patient/caregiver will verbalize understanding of ongoing discharge plan provided related to disease management, arrangements for outpatient and/or community services, obtaining medications, supplies, and DME, as needed throughout certification period. Discharge No Improved Aerobic Capacity Description: LTG: Patient will demonstrate improved aerobic capacity to meet functional goals as evidenced by the ability to complete a 2 Minute Walk Test to be achieved by 04/25/22. LTG: Patient will demonstrate improved aerobic capacity to meet functional goals as evidenced by Rate of Percieved Exertion (RPE) of 3/10 during walking activity, to be achieved by 04/25/22. . PT Impaired Aerobic Capacity No Improved Muscle Performance and/or ROM Description: LTG: Patient will demonstrate improved muscle performance to meet functional goals as evidenced by ability to tolerate 10-15 min of standing activity, to be achieved by 04/25/22. . STG: Patient and/or caregiver will verbalize/demonstrate independence with home exercise program, to improve functional mobility, to be achieved by 03/28/22. PT Impaired muscle performance and/or ROM No Improved Gait Description: LTG: Patient will demonstrate improved gait ability as evidenced by ambulation 150 feet with no device independently, to return to safe household and community ambulation, in order to return to [facility] , to be achieved by 04/25/22. . PT Impaired gait No Improved Balance Description: LTG: Patient will demonstrate improved standing balance to meet functional goals as evidenced by TUG score of <15 to be achieved by 04/25/22. . PT Impaired balance No Demonstrate understanding of education Description: Patient and/or caregiver will understand educational instruction to be achieved by 04/25/22. . PT Learning Assessment No Interventions Intervention Associated Problem/Goal Status Variance Visit Notes Medication Education Description: Evaluate/instruct patient/caregiver on obtaining, storing, identifying and administering ordered medications as well as keeping accurate medication list in the home and adhereing to medication schedule Problem:Medication Education Goal:Patient/caregive r will demonstrate ability to obtain, store, identify and administer ordered medications, keep accurate medication list in home, and adhere to medication schedule Completed Patient instructed on importance of keeping accurate medication list in home and adhering to medication schedule. Risk of Sepsis Description: Patient is at risk for sepsis. Monitor closely for s/s of sepsis. Problem:Sepsis Goal:Patient/caregive r will be able to identify and report symptoms of sepsis Completed SPO2 Description: Notify Dr. Cheung if pulse ox is <92% at rest. Problem:Physician Specific Parameters Goal:Patient to maintain parameters within physician-specified ranges throughout certification period Completed Instruct on individual fall risk factors and strategies to prevent falls and injuries caused by falls. Problem:Risk for Falls Goal:Manage Risk for falls Completed PT: Patient instructed on Eliminating Environmental Hazards: Remove unsafe rugs Instruct on pain and instruct on strategies to control pain Problem:Pain Goal:Manage Pain Completed patient instructed on techniques to control pain including Non-Pharmacological measures; rest and distraction. Instruct on ongoing discharge plan Problem:Discharge Goal:Manage discharge planning Completed Ongoing Discharge plan: Discharge plan discussed with patient including frequency and duration for home PT and plan for transition to: live independently at home without ongoing services. Physical Therapy Aerobic Capacity Training Problem:PT Impaired Aerobic Capacity Goal:Improved Aerobic Capacity Completed patient instructed on utilization of the Rate of Percieved Exertion (RPE) scale, to not exceed 3-6/10 indicating moderate to heavy intensity of activity. Developed, implemented, and instructed patient on physical therapy interventions completing 10 minutes of continuous activity. Physical Therapy Therapeutic Exercises Problem:PT Impaired muscle performance and/or ROM Goal:Improved Muscle Performance and/or ROM Completed patient instructed on strengthening exercises including standing heel toe raises, hip abd and flexion, hamstring curls and mini sits x's 15 eachseated laq, hip flexion and adduction x's 15each restorator x's 810min with verbal and visual cues for upright posture and sklower pace . patient instructed to perform home exercise program twice a day which included above exercises m. Physical Therapy Gait Training Problem:PT Impaired gait Goal:Improved Gait Completed Gait training and instruction to patient on safe ambulation with no device for x;s 25 and x's50 feet with supervision, with verbal cues for corrections of gait deviations including pacing . Physical Therapy Balance Training Problem:PT Impaired balance Goal:Improved Balance Completed Developed, implemented, and instructed patient on standing balance exercises including urbano standing exercises . Instruct and educate on knowledge deficits Problem:PT Learning Assessment Goal:Demonstrate understanding of education Completed patient verbalize and/or demonstrate understanding of physical therapy education including home exercise program. Education methods include: verbal cues. Further education required to improve knowledge and compliance with home exercise program. 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 Discipline -Physical Therapy Problems Problem Description Start Date Status Goals Interve ntions Medication Education Disciplines: Skilled Services 02/25/2022 Active 1 goal linked to scheduled/document ed intervention 1 goal intervention scheduled/document ed in this visit Sepsis Disciplines: Skilled Services 02/25/2022 Active 1 goal linked to scheduled/document ed intervention 1 goal intervention scheduled/document ed in this visit Cancer Disciplines: Skilled Services 02/25/2022 Active 1 goal linked to scheduled/document ed intervention 1 goal intervention scheduled/document ed in this visit Physician Specific Parameters Disciplines: Skilled Services 02/25/2022 Active 1 goal linked to scheduled/document ed intervention 1 goal intervention scheduled/document ed in this visit Risk for Falls Disciplines: Skilled Services 02/25/2022 Active 1 goal linked to scheduled/document ed intervention 1 goal intervention scheduled/document ed in this visit Pain Disciplines: Skilled Services 02/25/2022 Active 1 goal linked to scheduled/document ed intervention 1 goal intervention scheduled/document ed in this visit Discharge Disciplines: Skilled Services 02/25/2022 Active 1 goal linked to scheduled/document ed intervention 1 goal intervention scheduled/document ed in this visit PT Impaired Aerobic Capacity Disciplines: PT 03/12/2022 Active 1 goal linked to scheduled/document ed intervention 1 goal intervention scheduled/document ed in this visit PT Impaired muscle performance and/or ROM Disciplines: PT 03/12/2022 Active 1 goal linked to scheduled/document ed intervention 1 goal intervention scheduled/document ed in this visit PT Impaired gait Disciplines: PT 03/12/2022 Active 1 goal linked to scheduled/document ed intervention 1 goal intervention scheduled/document ed in this visit PT Impaired balance Disciplines: PT 03/12/2022 Active 1 goal linked to scheduled/document ed intervention 1 goal intervention scheduled/document ed in this visit PT Learning Assessment Disciplines: PT 03/12/2022 Active 1 goal linked to scheduled/document ed intervention 1 goal intervention scheduled/document ed in this visit Goals Goal Associated Problem Outcome Goal Met? Visit Notes Patient/caregiver will demonstrate ability to obtain, store, identify and administer ordered medications, keep accurate medication list in home, and adhere to medication schedule Description: Patient/caregiver will demonstrate ability to obtain, store, identify and administer ordered medications, keep accurate medication list in home, and adhere to medication schedule by 04/25/22. Medication Education No Patient/caregiver will be able to identify and report symptoms of sepsis Description: Patient/caregiver will be able to identify signs/symptoms of sepsis infection and will verbalize actions to take if suspected by 04/25/22. Sepsis No Improve symptom management of cancer and side effects of treatment Description: Patient/caregiver will verbalize understanding of cancer diagnosis, side effects of treatment, and management of symptoms by 04/25/22. Cancer No Patient to maintain parameters within physician-specified ranges throughout certification period Physician Specific Parameters No Manage Risk for falls Description: Patient/caregiver will verbalize knowledge of individualized fall prevention strategies by 04/25/22. Risk for Falls No Manage Pain Description: Patient/caregiver will verbalize knowledge and understanding of appropriate techniques to control pain, including pain medication and non-pharmacological techniques. Patient will verbalize or demonstrate an acceptable level of pain as evidenced by a pain score of 0-3/10 and improvement in ability to perform activities of daily living to be achieved by 04/25/22. Pain No Manage discharge planning Description: Patient/caregiver will verbalize understanding of ongoing discharge plan provided related to disease management, arrangements for outpatient and/or community services, obtaining medications, supplies, and DME, as needed throughout certification period. Discharge No Improved Aerobic Capacity Description: LTG: Patient will demonstrate improved aerobic capacity to meet functional goals as evidenced by the ability to complete a 2 Minute Walk Test to be achieved by 04/25/22. LTG: Patient will demonstrate improved aerobic capacity to meet functional goals as evidenced by Rate of Percieved Exertion (RPE) of 3/10 during walking activity, to be achieved by 04/25/22. . PT Impaired Aerobic Capacity No Improved Muscle Performance and/or ROM Description: LTG: Patient will demonstrate improved muscle performance to meet functional goals as evidenced by ability to tolerate 10-15 min of standing activity, to be achieved by 04/25/22. . STG: Patient and/or caregiver will verbalize/demonstrate independence with home exercise program, to improve functional mobility, to be achieved by 03/28/22. PT Impaired muscle performance and/or ROM No Improved Gait Description: LTG: Patient will demonstrate improved gait ability as evidenced by ambulation 150 feet with no device independently, to return to safe household and community ambulation, in order to return to [facility] , to be achieved by 04/25/22. . PT Impaired gait No Improved Balance Description: LTG: Patient will demonstrate improved standing balance to meet functional goals as evidenced by TUG score of <15 to be achieved by 04/25/22. . PT Impaired balance No Demonstrate understanding of education Description: Patient and/or caregiver will understand educational instruction to be achieved by 04/25/22. . PT Learning Assessment No Interventions Intervention Associated Problem/Goal Status Variance Visit Notes Medication Education Description: Evaluate/instruct patient/caregiver on obtaining, storing, identifying and administering ordered medications as well as keeping accurate medication list in the home and adhereing to medication schedule Problem:Medication Education Goal:Patient/caregive r will demonstrate ability to obtain, store, identify and administer ordered medications, keep accurate medication list in home, and adhere to medication schedule Completed Patient instructed on importance of keeping accurate medication list in home and adhering to medication schedule. Risk of Sepsis Description: Patient is at risk for sepsis. Monitor closely for s/s of sepsis. Problem:Sepsis Goal:Patient/caregive r will be able to identify and report symptoms of sepsis Completed Instruct patient/caregiver on cancer diagnosis, side effects of treatment, and management of symptoms Description: Instruct patient/caregiver on rectal cancer diagnosis, side effects of treatment and management of symptoms. Problem:Cancer Goal:Improve symptom management of cancer and side effects of treatment Completed Patient instructed on cancer disease process. SPO2 Description: Notify Dr. Cheung if pulse ox is <92% at rest. Problem:Physician Specific Parameters Goal:Patient to maintain parameters within physician-specified ranges throughout certification period Completed Instruct on individual fall risk factors and strategies to prevent falls and injuries caused by falls. Problem:Risk for Falls Goal:Manage Risk for falls Completed PT: Patient instructed on Managing Impaired Functional Mobility: Modification of current activities: rest when fatigued Instruct on pain and instruct on strategies to control pain Problem:Pain Goal:Manage Pain Completed patient instructed on techniques to control pain including Pharmacological measures and Non-Pharmacological measures; rest. Instruct on ongoing discharge plan Problem:Discharge Goal:Manage discharge planning Completed Ongoing Discharge plan: Discharge plan discussed with patient including frequency and duration for home PT and plan for transition to: live independently at home without ongoing services. Physical Therapy Aerobic Capacity Training Problem:PT Impaired Aerobic Capacity Goal:Improved Aerobic Capacity Completed patient instructed on utilization of the Rate of Percieved Exertion (RPE) scale, to not exceed 3-6/10 indicating moderate to heavy intensity of activity. Developed, implemented, and instructed patient on physical therapy interventions completing 10 minutes of paced activity. Physical Therapy Therapeutic Exercises Problem:PT Impaired muscle performance and/or ROM Goal:Improved Muscle Performance and/or ROM Completed patient instructed on strengthening exercises including standing heel toe raises , hip abd and flexion, and hamstring curls and mini sits x's 15 each. searted laq, hip flexion and adduction x's 15 each. restorator x's 1o0 min with verbal and visual cues for FORM AND PACE . patient instructed to perform home exercise program twice a day which included above exercises. Physical Therapy Gait Training Problem:PT Impaired gait Goal:Improved Gait Completed Gait training and instruction to patient on safe ambulation with no device for 2x's 50 feet with independent, with verbal cues for corrections of gait deviations including pacing for energy conservation. Physical Therapy Balance Training Problem:PT Impaired balance Goal:Improved Balance Completed Developed, implemented, and instructed patient on standing balance exercises including [place] standing exercises. Instruct and educate on knowledge deficits Problem:PT Learning Assessment Goal:Demonstrate understanding of education Completed patient verbalize and/or demonstrate understanding of physical therapy education including surgical precautions and home exercise program. Education methods include: verbal cues. Further education required to improve knowledge and compliance with home exercise program. [facility] Visit Details Visit Type -SN ROUTINE Discipline -Senior Care Problems Problem Description Start Date Status Goals Interve ntions Medication Education Disciplines: Skilled Services 02/25/2022 Active 1 goal linked to scheduled/documen deyanira intervention 1 goal intervention scheduled/document ed in this visit Sepsis Disciplines: Skilled Services 02/25/2022 Active 1 goal linked to scheduled/documen deyanira intervention 1 goal intervention scheduled/document ed in this visit Physician Specific Parameters Disciplines: Skilled Services 02/25/2022 Active 1 goal linked to scheduled/documen deyanira intervention 1 goal intervention scheduled/document ed in this visit Risk for Falls Disciplines: Skilled Services 02/25/2022 Active 1 goal linked to scheduled/documen deyanira intervention 1 goal intervention scheduled/document ed in this visit Pain Disciplines: Skilled Services 02/25/2022 Active 1 goal linked to scheduled/documen deyanira intervention Nutrition/Hydration Disciplines: Skilled Services 02/25/2022 Active 1 goal linked to scheduled/documen deyanira intervention 1 goal intervention scheduled/document ed in this visit Discharge Disciplines: Skilled Services 02/25/2022 Active 1 goal linked to scheduled/documen deyanira intervention 1 goal intervention scheduled/document ed in this visit SN Learning Assessment Disciplines: SN 02/25/2022 Active 1 goal linked to scheduled/documen deyanira intervention 1 goal intervention scheduled/document ed in this visit SN Gastrointestinal Disciplines: SN 02/25/2022 Active 1 goal linked to scheduled/documen deyanira intervention 2 goal interventions scheduled/document ed in this visit SN Cardiovascular Condition Disciplines: 02/25/2022 Active 1 goal linked to scheduled/documen deyanira intervention 1 goal intervention scheduled/document ed in this visit SN Other significant comorbidities/disea se process Disciplines: 03/13/2022 Active 1 goal linked to scheduled/documen deyanira intervention 1 goal intervention scheduled/document ed in this visit Goals Goal Associated Problem Outcome Goal Met? Visit Notes Patient/caregiver will demonstrate ability to obtain, store, identify and administer ordered medications, keep accurate medication list in home, and adhere to medication schedule Description: Patient/caregiver will demonstrate ability to obtain, store, identify and administer ordered medications, keep accurate medication list in home, and adhere to medication schedule by 04/25/22. Medication Education In Progress No Patient/caregiver will be able to identify and report symptoms of sepsis Description: Patient/caregiver will be able to identify signs/symptoms of sepsis infection and will verbalize actions to take if suspected by 04/25/22. Sepsis In Progress No Patient to maintain parameters within physician-specified ranges throughout certification period Physician Specific Parameters In Progress No Manage Risk for falls Description: Patient/caregiver will verbalize knowledge of individualized fall prevention strategies by 04/25/22. Risk for Falls In Progress No Manage Pain Description: Patient/caregiver will verbalize knowledge and understanding of appropriate techniques to control pain, including pain medication and non-pharmacological techniques. Patient will verbalize or demonstrate an acceptable level of pain as evidenced by a pain score of 0-3/10 and improvement in ability to perform activities of daily living to be achieved by 04/25/22. Pain In Progress No Manage Nutrition/Hydration Description: Patient/caregiver will verbalize/demonstrate knowledge of prescribed diet and/or healthy nutrition to be achieved by 04/25/22. Nutrition/Hydration In Progress No Manage discharge planning Description: Patient/caregiver will verbalize understanding of ongoing discharge plan provided related to disease management, arrangements for outpatient and/or community services, obtaining medications, supplies, and DME, as needed throughout certification period. Discharge In Progress No Demonstrate understanding of education Description: Patient and/or caregiver will verbalize understanding of educational instruction provided throughout certification period. SN Learning Assessment In Progress No Improved management of GI disease/condition Description: Patient/Caregiver will demonstrate understanding of GI education as evidenced by improved management of gastrointestinal disease/condition by 04/11/22. SN Gastrointestinal In Progress No Improved management of cardiovascular disease Description: Improve patient/caregiver management of cardiac disease as evidenced by patient/caregiver ability to teach back cardiac management strategies by 04/11/22. SN Cardiovascular Condition In Progress No Patient/Caregiver will verbalize and/or demonstrate understanding of additional comorbidity(s) or disease process affecting plan of care Description: Patient/Caregiver will verbalize and/or demonstrate understanding of comorbidities effect on health conditions by 04/03/22. SN Other significant comorbidities/disease process In Progress No Interventions Intervention Associated Problem/Goal Status Variance Visit Notes Medication Education Description: Evaluate/instruct patient/caregiver on obtaining, storing, identifying and administering ordered medications as well as keeping accurate medication list in the home and adhereing to medication schedule Problem:Medication Education Goal:Patient/caregiver will demonstrate ability to obtain, store, identify and administer ordered medications, keep accurate medication list in home, and adhere to medication schedule Completed Patient instructed on adhering to medication schedule. Risk of Sepsis Description: Patient is at risk for sepsis. Monitor closely for s/s of sepsis. Problem:Sepsis Goal:Patient/caregiver will be able to identify and report symptoms of sepsis Completed SPO2 Description: Notify Dr. Cheung if pulse ox is <92% at rest. Problem:Physician Specific Parameters Goal:Patient to maintain parameters within physician-specified ranges throughout certification period Completed Instruct on individual fall risk factors and strategies to prevent falls and injuries caused by falls. Problem:Risk for Falls Goal:Manage Risk for falls Completed SN: Patient instructed on Managing Impaired Functional Mobility: Caregiver to provide assist with: Steps Define patient s appetite/hydration status and implement strategies to improve compliance with prescribed diet and/or healthy nutrition. Problem:Nutrition/Hydr ation Goal:Manage Nutrition/Hydration Completed reinforced patient on implementing strategies to comply with healthy nutrition and adequate hydration Instruct on ongoing discharge plan Problem:Discharge Goal:Manage discharge planning Completed Ongoing Discharge plan: Discharge plan discussed with patient including frequency and duration for home SN and plan for transition to: live independently at home without ongoing services. Instruct and educate on knowledge deficits Problem:SN Learning Assessment Goal:Demonstrate understanding of education Completed patient verbalize and/or demonstrate understanding of nursing education completed today. Education methods include: verbal cues, tactile cues, visual cues and teach back. Further education required to improve knowledge and compliance with cardiac disease management, fall prevention/home safety strategies, gastrointestinal care management, hematological care management, medication management, nutrition and ostomy care management. Ostomy: Complete Pouch Change Description: Pouch to be changed: 2x a week and PRN. Pouch procedure: Remove old pouch, complete peristomal care, use skin prep, powder, paste, crusting technique and two piece, adjust ostomy procedure as needed for leaking/fit complications. Problem:SN Gastrointestinal Goal:Improved management of GI disease/condition Completed Ostomy: Instruct Patient/Caregiver on Ostomy management Problem:SN Gastrointestinal Goal:Improved management of GI disease/condition Completed patient instructed on the following: pouch change and peristomal skin care. Instruct on cardiovascular disease process and management of condition Description: Patient has following cardiac diagnosis(es): Hypertension and CAD. Problem:SN Cardiovascular Condition Goal:Improved management of cardiovascular disease Completed patient instructed on self monitoring & symptom reporting. 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 [facility] Visit Details Visit Type -SN ROUTINE Discipline -Senior Care Problems Problem Description Start Date Status Goals Interve ntions Medication Education Disciplines: Skilled Services 02/25/2022 Active 1 goal linked to scheduled/documen deyanira intervention 1 goal intervention scheduled/document ed in this visit Sepsis Disciplines: Skilled Services 02/25/2022 Active 1 goal linked to scheduled/documen deyanira intervention 1 goal intervention scheduled/document ed in this visit Physician Specific Parameters Disciplines: Skilled Services 02/25/2022 Active 1 goal linked to scheduled/documen deyanira intervention 1 goal intervention scheduled/document ed in this visit Risk for Falls Disciplines: Skilled Services 02/25/2022 Active 1 goal linked to scheduled/documen deyanira intervention 1 goal intervention scheduled/document ed in this visit Nutrition/Hydration Disciplines: Skilled Services 02/25/2022 Active 1 goal linked to scheduled/documen deyanira intervention 1 goal intervention scheduled/document ed in this visit SN Learning Assessment Disciplines: SN 02/25/2022 Active 1 goal linked to scheduled/documen deyanira intervention 1 goal intervention scheduled/document ed in this visit SN Gastrointestinal Disciplines: SN 02/25/2022 Active 1 goal linked to scheduled/documen deyanira intervention 2 goal interventions scheduled/document ed in this visit SN Cardiovascular Condition Disciplines: 02/25/2022 Active 1 goal linked to scheduled/documen deyanira intervention 1 goal intervention scheduled/document ed in this visit SN Other significant comorbidities/disea se process Disciplines: 03/13/2022 Active 1 goal linked to scheduled/documen dyeanira intervention 1 goal intervention scheduled/document ed in this visit Goals Goal Associated Problem Outcome Goal Met? Visit Notes Patient/caregiver will demonstrate ability to obtain, store, identify and administer ordered medications, keep accurate medication list in home, and adhere to medication schedule Description: Patient/caregiver will demonstrate ability to obtain, store, identify and administer ordered medications, keep accurate medication list in home, and adhere to medication schedule by 04/25/22. Medication Education No Patient/caregiver will be able to identify and report symptoms of sepsis Description: Patient/caregiver will be able to identify signs/symptoms of sepsis infection and will verbalize actions to take if suspected by 04/25/22. Sepsis No Patient to maintain parameters within physician-specified ranges throughout certification period Physician Specific Parameters No Manage Risk for falls Description: Patient/caregiver will verbalize knowledge of individualized fall prevention strategies by 04/25/22. Risk for Falls No Manage Nutrition/Hydration Description: Patient/caregiver will verbalize/demonstrate knowledge of prescribed diet and/or healthy nutrition to be achieved by 04/25/22. Nutrition/Hydration No Demonstrate understanding of education Description: Patient and/or caregiver will verbalize understanding of educational instruction provided throughout certification period. SN Learning Assessment No Improved management of GI disease/condition Description: Patient/Caregiver will demonstrate understanding of GI education as evidenced by improved management of gastrointestinal disease/condition by 04/11/22. SN Gastrointestinal No Improved management of cardiovascular disease Description: Improve patient/caregiver management of cardiac disease as evidenced by patient/caregiver ability to teach back cardiac management strategies by 04/11/22. SN Cardiovascular Condition No Patient/Caregiver will verbalize and/or demonstrate understanding of additional comorbidity(s) or disease process affecting plan of care Description: Patient/Caregiver will verbalize and/or demonstrate understanding of comorbidities effect on health conditions by 04/03/22. SN Other significant comorbidities/disease process No Interventions Intervention Associated Problem/Goal Status Variance Visit Notes Medication Education Description: Evaluate/instruct patient/caregiver on obtaining, storing, identifying and administering ordered medications as well as keeping accurate medication list in the home and adhereing to medication schedule Problem:Medication Education Goal:Patient/caregiver will demonstrate ability to obtain, store, identify and administer ordered medications, keep accurate medication list in home, and adhere to medication schedule Completed Patient instructed on adhering to medication schedule. Risk of Sepsis Description: Patient is at risk for sepsis. Monitor closely for s/s of sepsis. Problem:Sepsis Goal:Patient/caregiver will be able to identify and report symptoms of sepsis Completed SPO2 Description: Notify Dr. Cheung if pulse ox is <92% at rest. Problem:Physician Specific Parameters Goal:Patient to maintain parameters within physician-specified ranges throughout certification period Completed Instruct on individual fall risk factors and strategies to prevent falls and injuries caused by falls. Problem:Risk for Falls Goal:Manage Risk for falls Completed SN: Patient instructed on Eliminating Environmental Hazards: Keep pathways clear and Keep rooms and walkways well lit Managing Impaired Functional Mobility: Use assistive device(s): rollator walker and Caregiver to provide assist with: Steps Define patient s appetite/hydration status and implement strategies to improve compliance with prescribed diet and/or healthy nutrition. Problem:Nutrition/Hydr ation Goal:Manage Nutrition/Hydration Completed reinforced patient on implementing strategies to comply with healthy nutrition and adequate hydration Instruct and educate on knowledge deficits Problem:SN Learning Assessment Goal:Demonstrate understanding of education Completed patient verbalize and/or demonstrate understanding of nursing education completed today. Education methods include: verbal cues, visual cues and teach back. Further education required to improve knowledge and compliance with cardiac disease management, fall prevention/home safety strategies, gastrointestinal care management, hematological care management, medication management and nutrition. Ostomy: Complete Pouch Change Description: Pouch to be changed: 2x a week and PRN. Pouch procedure: Remove old pouch, complete peristomal care, use skin prep, powder, paste, crusting technique and two piece, adjust ostomy procedure as needed for leaking/fit complications. Problem:SN Gastrointestinal Goal:Improved management of GI disease/condition Completed Ostomy: Instruct Patient/Caregiver on Ostomy management Problem:SN Gastrointestinal Goal:Improved management of GI disease/condition Completed patient instructed on the following: pouch removal, pouch change and peristomal skin care. Instruct on cardiovascular disease process and management of condition Description: Patient has following cardiac diagnosis(es): Hypertension and CAD. Problem:SN Cardiovascular Condition Goal:Improved management of cardiovascular disease Completed patient instructed on self monitoring & symptom reporting. 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 documented in this encounter [facility] Plan of care note* Visit Details Visit Type -SN ROUTINE Discipline -Senior Care Problems Problem Description Start Date Status Goals Interve ntions Medication Education Disciplines: Skilled Services 02/25/2022 Active 1 goal linked to scheduled/docume nted intervention 1 goal intervention scheduled/documen deyanira in this visit Sepsis Disciplines: Skilled Services 02/25/2022 Active 1 goal linked to scheduled/docume nted intervention 1 goal intervention scheduled/documen deyanira in this visit Cancer Disciplines: Skilled Services 02/25/2022 Active 1 goal linked to scheduled/docume nted intervention Physician Specific Parameters Disciplines: Skilled Services 02/25/2022 Active 1 goal linked to scheduled/docume nted intervention 1 goal intervention scheduled/documen deyanira in this visit Risk for Falls Disciplines: Skilled Services 02/25/2022 Active 1 goal linked to scheduled/docume nted intervention 1 goal intervention scheduled/documen deyanira in this visit Pain Disciplines: Skilled Services 02/25/2022 Active 1 goal linked to scheduled/docume nted intervention 1 goal intervention scheduled/documen deyanira in this visit Nutrition/Hydration Disciplines: Skilled Services 02/25/2022 Active 1 goal linked to scheduled/docume nted intervention 1 goal intervention scheduled/documen deyanira in this visit Discharge Disciplines: Skilled Services 02/25/2022 Active 1 goal linked to scheduled/docume nted intervention 1 goal intervention scheduled/documen deyanira in this visit Advance Directives Disciplines: Skilled Services 02/25/2022 Resolved on 04/13/2022 1 goal linked to scheduled/docume nted intervention SN Learning Assessment Disciplines: 02/25/2022 Active 1 goal linked to scheduled/docume nted intervention 1 goal intervention scheduled/documen deyanira in this visit SN Gastrointestinal Disciplines: 02/25/2022 Active 1 goal linked to scheduled/docume nted intervention 1 goal intervention scheduled/documen deyanira in this visit SN Cardiovascular Condition Disciplines: 02/25/2022 Active 1 goal linked to scheduled/docume nted intervention 1 goal intervention scheduled/documen deyanira in this visit SN Other significant comorbidities/disea se process Disciplines: 03/13/2022 Resolved on 04/13/2022 1 goal linked to scheduled/docume nted intervention Goals Goal Associated Problem Outcome Goal Met? Visit Notes Patient/caregiver will demonstrate ability to obtain, store, identify and administer ordered medications, keep accurate medication list in home, and adhere to medication schedule Description: Patient/caregiver will demonstrate ability to obtain, store, identify and administer ordered medications, keep accurate medication list in home, and adhere to medication schedule by 04/25/22. Medication Education In Progress No Patient/caregiver will be able to identify and report symptoms of sepsis Description: Patient/caregiver will be able to identify signs/symptoms of sepsis infection and will verbalize actions to take if suspected by 04/25/22. Sepsis In Progress No Improve symptom management of cancer and side effects of treatment Description: Patient/caregiver will verbalize understanding of cancer diagnosis, side effects of treatment, and management of symptoms by 04/25/22. Cancer In Progress No Patient to maintain parameters within physician-specified ranges throughout certification period Physician Specific Parameters In Progress No Manage Risk for falls Description: Patient/caregiver will verbalize knowledge of individualized fall prevention strategies by 04/25/22. Risk for Falls In Progress No Manage Pain Description: Patient/caregiver will verbalize knowledge and understanding of appropriate techniques to control pain, including pain medication and non-pharmacological techniques. Patient will verbalize or demonstrate an acceptable level of pain as evidenced by a pain score of 0-3/10 and improvement in ability to perform activities of daily living to be achieved by 04/25/22. Pain In Progress No Manage Nutrition/Hydration Description: Patient/caregiver will verbalize/demonstrate knowledge of prescribed diet and/or healthy nutrition to be achieved by 04/25/22. Nutrition/Hydration In Progress No Manage discharge planning Description: Patient/caregiver will verbalize understanding of ongoing discharge plan provided related to disease management, arrangements for outpatient and/or community services, obtaining medications, supplies, and DME, as needed throughout certification period. Discharge In Progress No Patient/caregiver will make healthcare providers aware of and any changes to Advance Directives throughout certification period Advance Directives Completed Yes Demonstrate understanding of education Description: Patient and/or caregiver will verbalize understanding of educational instruction provided throughout certification period. SN Learning Assessment In Progress No Improved management of GI disease/condition Description: Patient/Caregiver will demonstrate understanding of GI education as evidenced by improved management of gastrointestinal disease/condition by 04/11/22. SN Gastrointestinal In Progress No Improved management of cardiovascular disease Description: Improve patient/caregiver management of cardiac disease as evidenced by patient/caregiver ability to teach back cardiac management strategies by 04/11/22. SN Cardiovascular Condition In Progress No Patient/Caregiver will verbalize and/or demonstrate understanding of additional comorbidity(s) or disease process affecting plan of care Description: Patient/Caregiver will verbalize and/or demonstrate understanding of comorbidities effect on health conditions by 04/03/22. SN Other significant comorbidities/disease process Completed Yes Interventions Intervention Associated Problem/Goal Status Variance Visit Notes Medication Education Description: Evaluate/instruct patient/caregiver on obtaining, storing, identifying and administering ordered medications as well as keeping accurate medication list in the home and adhereing to medication schedule Problem:Medication Education Goal:Patient/caregiver will demonstrate ability to obtain, store, identify and administer ordered medications, keep accurate medication list in home, and adhere to medication schedule Completed Patient instructed on adhering to medication schedule. Risk of Sepsis Description: Patient is at risk for sepsis. Monitor closely for s/s of sepsis. Problem:Sepsis Goal:Patient/caregiver will be able to identify and report symptoms of sepsis Completed SPO2 Description: Notify Dr. Cheung if pulse ox is <92% at rest. Problem:Physician Specific Parameters Goal:Patient to maintain parameters within physician-specified ranges throughout certification period Completed Instruct on individual fall risk factors and strategies to prevent falls and injuries caused by falls. Problem:Risk for Falls Goal:Manage Risk for falls Completed SN: Patient instructed on Managing Impaired Functional Mobility: Caregiver to provide assist with: Steps Instruct on pain and instruct on strategies to control pain Problem:Pain Goal:Manage Pain Completed patient instructed on techniques to control pain including Non-Pharmacological measures; mobility/therapeutic exercise. Define patient s appetite/hydration status and implement strategies to improve compliance with prescribed diet and/or healthy nutrition. Problem:Nutrition/Hydr ation Goal:Manage Nutrition/Hydration Completed reinforced patient on implementing strategies to comply with healthy nutrition and adequate hydration Instruct on ongoing discharge plan Problem:Discharge Goal:Manage discharge planning Completed Ongoing Discharge plan: Discharge plan discussed with patient including frequency and duration for home SN and plan for transition to: live independently at home without ongoing services. Instruct and educate on knowledge deficits Problem:SN Learning Assessment Goal:Demonstrate understanding of education Completed patient verbalize and/or demonstrate understanding of nursing education completed today. Education methods include: verbal cues. Further education required to improve knowledge and compliance with cardiac disease management, fall prevention/home safety strategies, gastrointestinal care management, hematological care management, medication management, nutrition and ostomy care management. Ostomy: Instruct Patient/Caregiver on Ostomy management Problem:SN Gastrointestinal Goal:Improved management of GI disease/condition Completed patient instructed on the following: pouch change and peristomal skin care. Instruct on cardiovascular disease process and management of condition Description: Patient has following cardiac diagnosis(es): Hypertension and CAD. Problem:SN Cardiovascular Condition Goal:Improved management of cardiovascular disease Completed patient instructed on self monitoring & symptom reporting. 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 Discipline -Physical Therapy Problems Problem Description Start Date Status Goals Interve ntions Medication Education Disciplines: Skilled Services 02/25/2022 Active 1 goal linked to scheduled/document ed intervention 1 goal intervention scheduled/document ed in this visit Sepsis Disciplines: Skilled Services 02/25/2022 Active 1 goal linked to scheduled/document ed intervention 1 goal intervention scheduled/document ed in this visit Physician Specific Parameters Disciplines: Skilled Services 02/25/2022 Active 1 goal linked to scheduled/document ed intervention 1 goal intervention scheduled/document ed in this visit Risk for Falls Disciplines: Skilled Services 02/25/2022 Active 1 goal linked to scheduled/document ed intervention 1 goal intervention scheduled/document ed in this visit Pain Disciplines: Skilled Services 02/25/2022 Active 1 goal linked to scheduled/document ed intervention 1 goal intervention scheduled/document ed in this visit Discharge Disciplines: Skilled Services 02/25/2022 Active 1 goal linked to scheduled/document ed intervention 1 goal intervention scheduled/document ed in this visit PT Impaired Aerobic Capacity Disciplines: PT 03/12/2022 Active 1 goal linked to scheduled/document ed intervention 1 goal intervention scheduled/document ed in this visit PT Impaired muscle performance and/or ROM Disciplines: PT 03/12/2022 Active 1 goal linked to scheduled/document ed intervention 1 goal intervention scheduled/document ed in this visit PT Impaired gait Disciplines: PT 03/12/2022 Active 1 goal linked to scheduled/document ed intervention 1 goal intervention scheduled/document ed in this visit PT Learning Assessment Disciplines: PT 03/12/2022 Active 1 goal linked to scheduled/document ed intervention 1 goal intervention scheduled/document ed in this visit Goals Goal Associated Problem Outcome Goal Met? Visit Notes Patient/caregiver will demonstrate ability to obtain, store, identify and administer ordered medications, keep accurate medication list in home, and adhere to medication schedule Description: Patient/caregiver will demonstrate ability to obtain, store, identify and administer ordered medications, keep accurate medication list in home, and adhere to medication schedule by 04/25/22. Medication Education No Patient/caregiver will be able to identify and report symptoms of sepsis Description: Patient/caregiver will be able to identify signs/symptoms of sepsis infection and will verbalize actions to take if suspected by 04/25/22. Sepsis No Patient to maintain parameters within physician-specified ranges throughout certification period Physician Specific Parameters No Manage Risk for falls Description: Patient/caregiver will verbalize knowledge of individualized fall prevention strategies by 04/25/22. Risk for Falls No Manage Pain Description: Patient/caregiver will verbalize knowledge and understanding of appropriate techniques to control pain, including pain medication and non-pharmacological techniques. Patient will verbalize or demonstrate an acceptable level of pain as evidenced by a pain score of 0-3/10 and improvement in ability to perform activities of daily living to be achieved by 04/25/22. Pain No Manage discharge planning Description: Patient/caregiver will verbalize understanding of ongoing discharge plan provided related to disease management, arrangements for outpatient and/or community services, obtaining medications, supplies, and DME, as needed throughout certification period. Discharge No Improved Aerobic Capacity Description: LTG: Patient will demonstrate improved aerobic capacity to meet functional goals as evidenced by the ability to complete a 2 Minute Walk Test to be achieved by 04/25/22. LTG: Patient will demonstrate improved aerobic capacity to meet functional goals as evidenced by Rate of Percieved Exertion (RPE) of 3/10 during walking activity, to be achieved by 04/25/22. . PT Impaired Aerobic Capacity No Improved Muscle Performance and/or ROM Description: LTG: Patient will demonstrate improved muscle performance to meet functional goals as evidenced by ability to tolerate 10-15 min of standing activity, to be achieved by 04/25/22. . STG: Patient and/or caregiver will verbalize/demonstrate independence with home exercise program, to improve functional mobility, to be achieved by 03/28/22. PT Impaired muscle performance and/or ROM No Improved Gait Description: LTG: Patient will demonstrate improved gait ability as evidenced by ambulation 150 feet with no device independently, to return to safe household and community ambulation, in order to return to [facility] , to be achieved by 04/25/22. . PT Impaired gait No Demonstrate understanding of education Description: Patient and/or caregiver will understand educational instruction to be achieved by 04/25/22. . PT Learning Assessment No Interventions Intervention Associated Problem/Goal Status Variance Visit Notes Medication Education Description: Evaluate/instruct patient/caregiver on obtaining, storing, identifying and administering ordered medications as well as keeping accurate medication list in the home and adhereing to medication schedule Problem:Medication Education Goal:Patient/caregive r will demonstrate ability to obtain, store, identify and administer ordered medications, keep accurate medication list in home, and adhere to medication schedule Completed Patient and Caregiver instructed on importance of keeping accurate medication list in home and adhering to medication schedule. Risk of Sepsis Description: Patient is at risk for sepsis. Monitor closely for s/s of sepsis. Problem:Sepsis Goal:Patient/caregive r will be able to identify and report symptoms of sepsis Completed SPO2 Description: Notify Dr. Cheung if pulse ox is <92% at rest. Problem:Physician Specific Parameters Goal:Patient to maintain parameters within physician-specified ranges throughout certification period Completed Instruct on individual fall risk factors and strategies to prevent falls and injuries caused by falls. Problem:Risk for Falls Goal:Manage Risk for falls Completed PT: Patient instructed on Managing Impaired Functional Mobility: Modification of current activities: rest when fatigue Instruct on pain and instruct on strategies to control pain Problem:Pain Goal:Manage Pain Completed patient denies pain today Instruct on ongoing discharge plan Problem:Discharge Goal:Manage discharge planning Completed Ongoing Discharge plan: Discharge plan discussed with patient including frequency and duration for home PT and plan for transition to: live independently at home without ongoing services. Physical Therapy Aerobic Capacity Training Problem:PT Impaired Aerobic Capacity Goal:Improved Aerobic Capacity Completed patient instructed on utilization of the Rate of Percieved Exertion (RPE) scale, to not exceed 3-6/10 indicating moderate to heavy intensity of activity. Developed, implemented, and instructed patient on physical therapy interventions completing 15 minutes of paced activity. Physical Therapy Therapeutic Exercises Problem:PT Impaired muscle performance and/or ROM Goal:Improved Muscle Performance and/or ROM Completed patient instructed on strengthening exercises including standing: heel toe raises , hip abd and flexion, hamstring xurls, mini sits x's 15 each. step ups x's 5 each. seated laq and hip flexion x's 15 each. restorator x' 10min with verbal cues for form and pace. patient instructed to perform home exercise program twice a day which included above exercises. Physical Therapy Gait Training Problem:PT Impaired gait Goal:Improved Gait Completed Gait training and instruction to patient on safe ambulation with no device for 3x's 40 feet with independent, Instruct and educate on knowledge deficits Problem:PT Learning Assessment Goal:Demonstrate understanding of education Completed patient verbalize and/or demonstrate understanding of physical therapy education including home exercise program. Education methods include: verbal cues. Further education required to improve knowledge and compliance with home exercise program. 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 Discipline -Physical Therapy Problems Problem Description Start Date Status Goals Interve ntions Medication Education Disciplines: Skilled Services 02/25/2022 Active 1 goal linked to scheduled/document ed intervention 1 goal intervention scheduled/document ed in this visit Sepsis Disciplines: Skilled Services 02/25/2022 Active 1 goal linked to scheduled/document ed intervention 1 goal intervention scheduled/document ed in this visit Physician Specific Parameters Disciplines: Skilled Services 02/25/2022 Active 1 goal linked to scheduled/document ed intervention 1 goal intervention scheduled/document ed in this visit Risk for Falls Disciplines: Skilled Services 02/25/2022 Active 1 goal linked to scheduled/document ed intervention 1 goal intervention scheduled/document ed in this visit Pain Disciplines: Skilled Services 02/25/2022 Active 1 goal linked to scheduled/document ed intervention 1 goal intervention scheduled/document ed in this visit Discharge Disciplines: Skilled Services 02/25/2022 Active 1 goal linked to scheduled/document ed intervention 1 goal intervention scheduled/document ed in this visit PT Impaired Aerobic Capacity Disciplines: PT 03/12/2022 Active 1 goal linked to scheduled/document ed intervention 1 goal intervention scheduled/document ed in this visit PT Impaired muscle performance and/or ROM Disciplines: PT 03/12/2022 Active 1 goal linked to scheduled/document ed intervention 1 goal intervention scheduled/document ed in this visit PT Impaired gait Disciplines: PT 03/12/2022 Active 1 goal linked to scheduled/document ed intervention 1 goal intervention scheduled/document ed in this visit PT Impaired balance Disciplines: PT 03/12/2022 Active 1 goal linked to scheduled/document ed intervention 1 goal intervention scheduled/document ed in this visit PT Learning Assessment Disciplines: PT 03/12/2022 Active 1 goal linked to scheduled/document ed intervention 1 goal intervention scheduled/document ed in this visit Goals Goal Associated Problem Outcome Goal Met? Visit Notes Patient/caregiver will demonstrate ability to obtain, store, identify and administer ordered medications, keep accurate medication list in home, and adhere to medication schedule Description: Patient/caregiver will demonstrate ability to obtain, store, identify and administer ordered medications, keep accurate medication list in home, and adhere to medication schedule by 04/25/22. Medication Education No Patient/caregiver will be able to identify and report symptoms of sepsis Description: Patient/caregiver will be able to identify signs/symptoms of sepsis infection and will verbalize actions to take if suspected by 04/25/22. Sepsis No Patient to maintain parameters within physician-specified ranges throughout certification period Physician Specific Parameters No Manage Risk for falls Description: Patient/caregiver will verbalize knowledge of individualized fall prevention strategies by 04/25/22. Risk for Falls No Manage Pain Description: Patient/caregiver will verbalize knowledge and understanding of appropriate techniques to control pain, including pain medication and non-pharmacological techniques. Patient will verbalize or demonstrate an acceptable level of pain as evidenced by a pain score of 0-3/10 and improvement in ability to perform activities of daily living to be achieved by 04/25/22. Pain No Manage discharge planning Description: Patient/caregiver will verbalize understanding of ongoing discharge plan provided related to disease management, arrangements for outpatient and/or community services, obtaining medications, supplies, and DME, as needed throughout certification period. Discharge No Improved Aerobic Capacity Description: LTG: Patient will demonstrate improved aerobic capacity to meet functional goals as evidenced by the ability to complete a 2 Minute Walk Test to be achieved by 04/25/22. LTG: Patient will demonstrate improved aerobic capacity to meet functional goals as evidenced by Rate of Percieved Exertion (RPE) of 3/10 during walking activity, to be achieved by 04/25/22. . PT Impaired Aerobic Capacity No Improved Muscle Performance and/or ROM Description: LTG: Patient will demonstrate improved muscle performance to meet functional goals as evidenced by ability to tolerate 10-15 min of standing activity, to be achieved by 04/25/22. . STG: Patient and/or caregiver will verbalize/demonstrate independence with home exercise program, to improve functional mobility, to be achieved by 03/28/22. PT Impaired muscle performance and/or ROM No Improved Gait Description: LTG: Patient will demonstrate improved gait ability as evidenced by ambulation 150 feet with no device independently, to return to safe household and community ambulation, in order to return to [facility] , to be achieved by 04/25/22. . PT Impaired gait No Improved Balance Description: LTG: Patient will demonstrate improved standing balance to meet functional goals as evidenced by TUG score of <15 to be achieved by 04/25/22. . PT Impaired balance No Demonstrate understanding of education Description: Patient and/or caregiver will understand educational instruction to be achieved by 04/25/22. . PT Learning Assessment No Interventions Intervention Associated Problem/Goal Status Variance Visit Notes Medication Education Description: Evaluate/instruct patient/caregiver on obtaining, storing, identifying and administering ordered medications as well as keeping accurate medication list in the home and adhereing to medication schedule Problem:Medication Education Goal:Patient/caregive r will demonstrate ability to obtain, store, identify and administer ordered medications, keep accurate medication list in home, and adhere to medication schedule Completed Patient instructed on importance of keeping accurate medication list in home. Risk of Sepsis Description: Patient is at risk for sepsis. Monitor closely for s/s of sepsis. Problem:Sepsis Goal:Patient/caregive r will be able to identify and report symptoms of sepsis Completed SPO2 Description: Notify Dr. Cheung if pulse ox is <92% at rest. Problem:Physician Specific Parameters Goal:Patient to maintain parameters within physician-specified ranges throughout certification period Completed Instruct on individual fall risk factors and strategies to prevent falls and injuries caused by falls. Problem:Risk for Falls Goal:Manage Risk for falls Completed PT: Patient instructed on Managing Impaired Functional Mobility: Modification of current activities: restvwhen fatigue Instruct on pain and instruct on strategies to control pain Problem:Pain Goal:Manage Pain Completed patient instructed on techniques to control pain including Non-Pharmacological measures; positioning/elevation . Instruct on ongoing discharge plan Problem:Discharge Goal:Manage discharge planning Completed Ongoing Discharge plan: Discharge plan discussed with patient including frequency and duration for home PT and plan for transition to: live independently at home without ongoing services. Physical Therapy Aerobic Capacity Training Problem:PT Impaired Aerobic Capacity Goal:Improved Aerobic Capacity Completed patient instructed on utilization of the Rate of Percieved Exertion (RPE) scale, to not exceed 3-6/10 indicating moderate to heavy intensity of activity. Developed, implemented, and instructed patient on physical therapy interventions completing 20 minutes of continuous activity. Physical Therapy Therapeutic Exercises Problem:PT Impaired muscle performance and/or ROM Goal:Improved Muscle Performance and/or ROM Completed patient instructed on strengthening exercises including standing heel toe raises, hip abd and flexion, hams curls and mini sits x's 15 each seated laq, hip flexion and adduction. restorator x's 10 min with verbal cues for posture . patient instructed to perform home exercise program twice a day which included above exercises. Physical Therapy Gait Training Problem:PT Impaired gait Goal:Improved Gait Completed Gait training and instruction to patient on safe ambulation with no device for household distances with independent, Physical Therapy Balance Training Problem:PT Impaired balance Goal:Improved Balance Completed Developed, implemented, and instructed patient on standing balance exercises including standing exercises and ind functional home mobility. Instruct and educate on knowledge deficits Problem:PT Learning Assessment Goal:Demonstrate understanding of education Completed patient verbalize and/or demonstrate understanding of physical therapy education including home exercise program and monitoring BP. Education methods include: verbal cues. Further education required to improve knowledge and compliance with home exercise program. 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 Discipline -Physical Therapy Problems Problem Description Start Date Status Goals Interve ntions Medication Education Disciplines: Skilled Services 02/25/2022 Active 1 goal linked to scheduled/document ed intervention 1 goal intervention scheduled/document ed in this visit Sepsis Disciplines: Skilled Services 02/25/2022 Active 1 goal linked to scheduled/document ed intervention 1 goal intervention scheduled/document ed in this visit Physician Specific Parameters Disciplines: Skilled Services 02/25/2022 Active 1 goal linked to scheduled/document ed intervention 1 goal intervention scheduled/document ed in this visit Risk for Falls Disciplines: Skilled Services 02/25/2022 Active 1 goal linked to scheduled/document ed intervention 1 goal intervention scheduled/document ed in this visit Discharge Disciplines: Skilled Services 02/25/2022 Active 1 goal linked to scheduled/document ed intervention 2 goal interventions scheduled/document ed in this visit PT Impaired Aerobic Capacity Disciplines: PT 03/12/2022 Active 1 goal linked to scheduled/document ed intervention 1 goal intervention scheduled/document ed in this visit PT Impaired muscle performance and/or ROM Disciplines: PT 03/12/2022 Active 1 goal linked to scheduled/document ed intervention 1 goal intervention scheduled/document ed in this visit PT Impaired mobility Disciplines: PT 03/12/2022 Active 1 goal linked to scheduled/document ed intervention 1 goal intervention scheduled/document ed in this visit PT Impaired gait Disciplines: PT 03/12/2022 Active 1 goal linked to scheduled/document ed intervention 1 goal intervention scheduled/document ed in this visit PT Learning Assessment Disciplines: PT 03/12/2022 Active 1 goal linked to scheduled/document ed intervention 1 goal intervention scheduled/document ed in this visit Goals Goal Associated Problem Outcome Goal Met? Visit Notes Patient/caregiver will demonstrate ability to obtain, store, identify and administer ordered medications, keep accurate medication list in home, and adhere to medication schedule Description: Patient/caregiver will demonstrate ability to obtain, store, identify and administer ordered medications, keep accurate medication list in home, and adhere to medication schedule by 04/25/22. Medication Education No Patient/caregiver will be able to identify and report symptoms of sepsis Description: Patient/caregiver will be able to identify signs/symptoms of sepsis infection and will verbalize actions to take if suspected by 04/25/22. Sepsis No Patient to maintain parameters within physician-specified ranges throughout certification period Physician Specific Parameters No Manage Risk for falls Description: Patient/caregiver will verbalize knowledge of individualized fall prevention strategies by 04/25/22. Risk for Falls No Manage discharge planning Description: Patient/caregiver will verbalize understanding of ongoing discharge plan provided related to disease management, arrangements for outpatient and/or community services, obtaining medications, supplies, and DME, as needed throughout certification period. Discharge No Improved Aerobic Capacity Description: LTG: Patient will demonstrate improved aerobic capacity to meet functional goals as evidenced by the ability to complete a 2 Minute Walk Test to be achieved by 04/25/22. LTG: Patient will demonstrate improved aerobic capacity to meet functional goals as evidenced by Rate of Percieved Exertion (RPE) of 3/10 during walking activity, to be achieved by 04/25/22. . PT Impaired Aerobic Capacity No Improved Muscle Performance and/or ROM Description: LTG: Patient will demonstrate improved muscle performance to meet functional goals as evidenced by ability to tolerate 10-15 min of standing activity, to be achieved by 04/25/22. . STG: Patient and/or caregiver will verbalize/demonstrate independence with home exercise program, to improve functional mobility, to be achieved by 03/28/22. PT Impaired muscle performance and/or ROM No Improved Transfers Description: STG: Patient will demonstrate safe transfers to/from car with supervision, to be achieved by . PT Impaired mobility No Improved Gait Description: LTG: Patient will demonstrate improved gait ability as evidenced by ambulation 150 feet with no device independently, to return to safe household and community ambulation, in order to return to [facility] , to be achieved by 04/25/22. . PT Impaired gait No Demonstrate understanding of education Description: Patient and/or caregiver will understand educational instruction to be achieved by 04/25/22. . PT Learning Assessment No Interventions Intervention Associated Problem/Goal Status Variance Visit Notes Medication Education Description: Evaluate/instruct patient/caregiver on obtaining, storing, identifying and administering ordered medications as well as keeping accurate medication list in the home and adhereing to medication schedule Problem:Medication Education Goal:Patient/caregive r will demonstrate ability to obtain, store, identify and administer ordered medications, keep accurate medication list in home, and adhere to medication schedule Completed Patient instructed on importance of keeping accurate medication list in home and adhering to medication schedule. Risk of Sepsis Description: Patient is at risk for sepsis. Monitor closely for s/s of sepsis. Problem:Sepsis Goal:Patient/caregive r will be able to identify and report symptoms of sepsis Completed SPO2 Description: Notify Dr. Cheung if pulse ox is <92% at rest. Problem:Physician Specific Parameters Goal:Patient to maintain parameters within physician-specified ranges throughout certification period Completed Instruct on individual fall risk factors and strategies to prevent falls and injuries caused by falls. Problem:Risk for Falls Goal:Manage Risk for falls Completed PT: Patient instructed on Managing Impaired Functional Mobility: Modification of current activities: rest when fatigued Deliver [facility] Problem:Discharge Goal:Manage discharge planning Completed Delivered [facility] on 04/21/22 for discharge date of 10/22/22. Patient denies questions/concerns w/ form.. Instruct on ongoing discharge plan Problem:Discharge Goal:Manage discharge planning Completed Ongoing Discharge plan: Discharge plan discussed with patient including frequency and duration for home PT and plan for transition to: live independently at home without ongoing services. Physical Therapy Aerobic Capacity Training Problem:PT Impaired Aerobic Capacity Goal:Improved Aerobic Capacity Completed patient instructed on utilization of the Rate of Percieved Exertion (RPE) scale, to not exceed 3-6/10 indicating moderate to heavy intensity of activity. Developed, implemented, and instructed patient on physical therapy interventions completing 20 minutes of continuous activity. Physical Therapy Therapeutic Exercises Problem:PT Impaired muscle performance and/or ROM Goal:Improved Muscle Performance and/or ROM Completed patient instructed on strengthening exercises including standing hip flexion, abduction,, hamstring curls and mini sits x's 15each. step ups xs 10 each. restoratorator x's 10min . with verbal cues for correct technique. patient instructed to perform home exercise program twice a day which included above exercises . Physical Therapy Transfer Training Problem:PT Impaired mobility Goal:Improved Transfers Completed Transfer training and instruction to patient on safe transfers to and from chair with independent Physical Therapy Gait Training Problem:PT Impaired gait Goal:Improved Gait Completed Gait training and instruction to patient on safe ambulation with no device for household distances with independent, Instruct and educate on knowledge deficits Problem:PT Learning Assessment Goal:Demonstrate understanding of education Completed patient verbalize and/or demonstrate understanding of physical therapy education including home exercise program. Education methods include: verbal cues. Further education required to improve knowledge and compliance with home exercise program. [facility] Visit Details Visit Type -PT DISC DC W VIS IT Discipline -Physical Therapy Problems Problem Description Start Date Status Goals Interve ntions Sepsis Disciplines: Skilled Services 02/25/2022 Active 1 goal linked to scheduled/document ed intervention 1 goal intervention scheduled/document ed in this visit Physician Specific Parameters Disciplines: Skilled Services 02/25/2022 Active 1 goal linked to scheduled/document ed intervention 1 goal intervention scheduled/document ed in this visit Risk for Falls Disciplines: Skilled Services 02/25/2022 Active 1 goal linked to scheduled/document ed intervention 1 goal intervention scheduled/document ed in this visit PT Impaired Aerobic Capacity Disciplines: PT 03/12/2022 Resolved on 04/22/2022 1 goal linked to scheduled/document ed intervention 1 goal intervention scheduled/document ed in this visit PT Impaired muscle performance and/or ROM Disciplines: PT 03/12/2022 Resolved on 04/22/2022 1 goal linked to scheduled/document ed intervention 1 goal intervention scheduled/document ed in this visit PT Impaired mobility Disciplines: PT 03/12/2022 Resolved on 04/22/2022 1 goal linked to scheduled/document ed intervention 1 goal intervention scheduled/document ed in this visit PT Impaired gait Disciplines: PT 03/12/2022 Resolved on 04/22/2022 2 goals linked to scheduled/document ed interventions 2 goal interventions scheduled/document ed in this visit PT Impaired balance Disciplines: PT 03/12/2022 Resolved on 04/22/2022 1 goal linked to scheduled/document ed intervention 1 goal intervention scheduled/document ed in this visit PT Learning Assessment Disciplines: PT 03/12/2022 Resolved on 04/22/2022 1 goal linked to scheduled/document ed intervention 1 goal intervention scheduled/document ed in this visit Goals Goal Associated Problem Outcome Goal Met? Visit Notes Patient/caregiver will be able to identify and report symptoms of sepsis Description: Patient/caregiver will be able to identify signs/symptoms of sepsis infection and will verbalize actions to take if suspected by 04/25/22. Sepsis No Patient to maintain parameters within physician-specified ranges throughout certification period Physician Specific Parameters No Manage Risk for falls Description: Patient/caregiver will verbalize knowledge of individualized fall prevention strategies by 04/25/22. Risk for Falls No Improved Aerobic Capacity Description: LTG: Patient will demonstrate improved aerobic capacity to meet functional goals as evidenced by the ability to complete a 2 Minute Walk Test to be achieved by 04/25/22. LTG: Patient will demonstrate improved aerobic capacity to meet functional goals as evidenced by Rate of Percieved Exertion (RPE) of 3/10 during walking activity, to be achieved by 04/25/22. . PT Impaired Aerobic Capacity Completed Yes Improved Muscle Performance and/or ROM Description: LTG: Patient will demonstrate improved muscle performance to meet functional goals as evidenced by ability to tolerate 10-15 min of standing activity, to be achieved by 04/25/22. . STG: Patient and/or caregiver will verbalize/demonstrate independence with home exercise program, to improve functional mobility, to be achieved by 03/28/22. PT Impaired muscle performance and/or ROM Completed Yes Improved Transfers Description: STG: Patient will demonstrate safe transfers to/from car with supervision, to be achieved by . PT Impaired mobility Completed Yes Improved Stair Climbing Description: LTG: Patient will demonstrate improved stair negotiation as evidenced by ascend/descend 5 steps with railing independently, to safely access community and exit home, to be achieved by 04/25/22. . PT Impaired gait Completed Yes Improved Gait Description: LTG: Patient will demonstrate improved gait ability as evidenced by ambulation 150 feet with no device independently, to return to safe household and community ambulation, in order to return to [facility] , to be achieved by 04/25/22. . PT Impaired gait Completed Yes Improved Balance Description: LTG: Patient will demonstrate improved standing balance to meet functional goals as evidenced by TUG score of <15 to be achieved by 04/25/22. . PT Impaired balance Completed Yes Demonstrate understanding of education Description: Patient and/or caregiver will understand educational instruction to be achieved by 04/25/22. . PT Learning Assessment Completed Yes Interventions Intervention Associated Problem/Goal Status Variance Visit Notes Risk of Sepsis Description: Patient is at risk for sepsis. Monitor closely for s/s of sepsis. Problem:Sepsis Goal:Patient/caregive r will be able to identify and report symptoms of sepsis Completed SPO2 Description: Notify Dr. Cheung if pulse ox is <92% at rest. Problem:Physician Specific Parameters Goal:Patient to maintain parameters within physician-specified ranges throughout certification period Completed Instruct on individual fall risk factors and strategies to prevent falls and injuries caused by falls. Problem:Risk for Falls Goal:Manage Risk for falls Completed PT: Patient instructed on Eliminating Environmental Hazards: Keep pathways clear, Remove unsafe rugs and Move furniture from pathways Physical Therapy Aerobic Capacity Training Problem:PT Impaired Aerobic Capacity Goal:Improved Aerobic Capacity Completed patient instructed on utilization of the Rate of Percieved Exertion (RPE) scale, to not exceed 3-6/10 indicating moderate to heavy intensity of activity. Developed, implemented, and instructed patient on physical therapy interventions completing 8 minutes of continuous activity. Physical Therapy Therapeutic Exercises Problem:PT Impaired muscle performance and/or ROM Goal:Improved Muscle Performance and/or ROM Completed patient instructed on strengthening exercises including standing hip flexion, abduction,, hamstring curls and mini sits x's 15each. step ups xs 10 each. restoratorator x's 10min . with verbal cues for correct technique. patient instructed to perform home exercise program twice a day which included above exercises . Physical Therapy Transfer Training Problem:PT Impaired mobility Goal:Improved Transfers Completed JIE transfers with safe/proper technqiue Physical Therapy Stair Training Problem:PT Impaired gait Goal:Improved Stair Climbing Completed Stair training and instruction to patient on safe stair climbing, ascend/descend 5 steps, with railing with supervision Physical Therapy Gait Training Problem:PT Impaired gait Goal:Improved Gait Completed Gait training and instruction to patient on safe ambulation with no device for 150 feet with independent, Physical Therapy Balance Training Problem:PT Impaired balance Goal:Improved Balance Completed pt demonstrates imporved dynamic standing balance as evidenced by a tug of 14 Instruct and educate on knowledge deficits Problem:PT Learning Assessment Goal:Demonstrate understanding of education Completed patient verbalize and/or demonstrate understanding of physical therapy education including surgical precautions, fall prevention strategies, home safety, functional activity and home exercise program. Education methods include: verbal cues. [facility] Visit Details Visit Type -SN AGENCY DC W V ISIT Discipline -Senior Care Problems Problem Description Start Date Status Goals Interve ntions Medication Education Disciplines: Skilled Services 02/25/2022 Active 1 goal linked to scheduled/documen deyanira intervention 1 goal intervention scheduled/document ed in this visit Sepsis Disciplines: Skilled Services 02/25/2022 Active 1 goal linked to scheduled/documen deyanira intervention 1 goal intervention scheduled/document ed in this visit Physician Specific Parameters Disciplines: Skilled Services 02/25/2022 Active 1 goal linked to scheduled/documen deyanira intervention 1 goal intervention scheduled/document ed in this visit Risk for Falls Disciplines: Skilled Services 02/25/2022 Active 1 goal linked to scheduled/documen deyanira intervention 1 goal intervention scheduled/document ed in this visit Discharge Disciplines: Skilled Services 02/25/2022 Active 1 goal linked to scheduled/documen deyanira intervention 3 goal interventions scheduled/document ed in this visit SN Gastrointestinal Disciplines: 02/25/2022 Active 1 goal linked to scheduled/documen deyanira intervention 2 goal interventions scheduled/document ed in this visit SN Cardiovascular Condition Disciplines: 02/25/2022 Active 1 goal linked to scheduled/documen deyanira intervention 1 goal intervention scheduled/document ed in this visit Goals Goal Associated Problem Outcome Goal Met? Visit Notes Patient/caregiver will demonstrate ability to obtain, store, identify and administer ordered medications, keep accurate medication list in home, and adhere to medication schedule Description: Patient/caregiver will demonstrate ability to obtain, store, identify and administer ordered medications, keep accurate medication list in home, and adhere to medication schedule by 04/25/22. Medication Education No Patient/caregiver will be able to identify and report symptoms of sepsis Description: Patient/caregiver will be able to identify signs/symptoms of sepsis infection and will verbalize actions to take if suspected by 04/25/22. Sepsis No Patient to maintain parameters within physician-specified ranges throughout certification period Physician Specific Parameters No Manage Risk for falls Description: Patient/caregiver will verbalize knowledge of individualized fall prevention strategies by 04/25/22. Risk for Falls No Manage discharge planning Description: Patient/caregiver will verbalize understanding of ongoing discharge plan provided related to disease management, arrangements for outpatient and/or community services, obtaining medications, supplies, and DME, as needed throughout certification period. Discharge No Improved management of GI disease/condition Description: Patient/Caregiver will demonstrate understanding of GI education as evidenced by improved management of gastrointestinal disease/condition by 04/11/22. SN Gastrointestinal No Improved management of cardiovascular disease Description: Improve patient/caregiver management of cardiac disease as evidenced by patient/caregiver ability to teach back cardiac management strategies by 04/11/22. SN Cardiovascular Condition No Interventions Intervention Associated Problem/Goal Status Variance Visit Notes Medication Education Description: Evaluate/instruct patient/caregiver on obtaining, storing, identifying and administering ordered medications as well as keeping accurate medication list in the home and adhereing to medication schedule Problem:Medication Education Goal:Patient/caregiver will demonstrate ability to obtain, store, identify and administer ordered medications, keep accurate medication list in home, and adhere to medication schedule Completed Patient instructed on importance of keeping accurate medication list in home, adhering to medication schedule and proper storage of medications. Risk of Sepsis Description: Patient is at risk for sepsis. Monitor closely for s/s of sepsis. Problem:Sepsis Goal:Patient/caregiver will be able to identify and report symptoms of sepsis Completed SPO2 Description: Notify Dr. Cheung if pulse ox is <92% at rest. Problem:Physician Specific Parameters Goal:Patient to maintain parameters within physician-specified ranges throughout certification period Completed Instruct on individual fall risk factors and strategies to prevent falls and injuries caused by falls. Problem:Risk for Falls Goal:Manage Risk for falls Completed SN: Patient instructed on Eliminating Environmental Hazards: Keep pathways clear, Keep rooms and walkways well lit, Wear supportive shoes or non-skid socks and Keep frequently used items within reach Deliver [facility] Problem:Discharge Goal:Manage discharge planning Completed Delivered [facility] on 04-21-22 for discharge date of 04-24 Pt request discharge today. Instruct on final discharge plan and deliver discharge instructions Problem:Discharge Goal:Manage discharge planning Completed Delivered Discharge plan: Discharge plan discussed with patient for plan for transition to: live independently at home without ongoing services Instruct on ongoing discharge plan Problem:Discharge Goal:Manage discharge planning Completed Ongoing Discharge plan: Discharge plan discussed with patient including frequency and duration for home SN and plan for transition to: live independently at home without ongoing services. Ostomy: Complete Pouch Change Description: Pouch to be changed: 2x a week and PRN. Pouch procedure: Remove old pouch, complete peristomal care, use skin prep, powder, paste, crusting technique and two piece, adjust ostomy procedure as needed for leaking/fit complications. Problem:SN Gastrointestinal Goal:Improved management of GI disease/condition Completed Ostomy: Instruct Patient/Caregiver on Ostomy management Problem:SN Gastrointestinal Goal:Improved management of GI disease/condition Completed patient instructed on the following: emptying and rinsing pouch, pouch removal, pouch change, disposal of used pouch and appliance, peristomal skin care and ostomy precautions. Instruct on cardiovascular disease process and management of condition Description: Patient has following cardiac diagnosis(es): Hypertension and CAD. Problem:SN Cardiovascular Condition Goal:Improved management of cardiovascular disease Completed patient instructed on cardiac disease process, self monitoring & symptom reporting, DVT/PE prevention and Cardiac Diet. [facility] Carlos Trujillo [facility] Note Date/Time November 29, 2024 11 :17am [facility] [address] [place] [address] OFFICE VISIT Date of Service: 11/29/24 MR#: [id number] Acct: [id number] Name: JAI LUNA Rep #: [id number] Provider: ALTAGRACIA Trujillo Age/Sex: 74/M Location: [facility] Status: Signed HPI HPI History of Present Illness Details: JAI LUNA, is a 74 M who presents to the office today for follow-up. He has a history of coronary artery disease status post bypass surgery with LIMAto LAD, RSVG to OM, and SVG to PDA in August 1994 and PTCA/SHIN to mid/distal RCA in November 2016 and a total of 6 stented segments last of which appears to been in 2017, hypertension, and hyperlipidemia. He is a previous smoker. Pt has been diagnosed with rectal cancer. He did undergo chem and radiation. Unfortunately the tumor returned. He did undergo surgery on 01/27/2022. Post operative complications he had a blood vessel rupture in his abdominal area, he was lift flighted to [facility]. He then had complications for PE/DVTs. He did requirethrombectomy in both is legs and lungs. It was noted on his CTA of his chest that he had left subclavian stenosis. This was subsequently intervened upon by Dr. Reynolds with a stenting procedure and now his blood pressures are equal in both arms. He had negative ABIs done in April 2022. He also had carotid ultrasounds done April 2022 that showed some irregular plaque and less than 50% stenosis. In March 2022 the patient was diagnosed with bilateral pulmonary emboli by CTA. An echocardiogram March 03, 2022 showed that his LV systolic function wasnormal with an EF in the 70% range the right ventricle was normal in size right ventricular systolic function was normal. This was really unchanged from a previous echo done at the [facility] 02/13/2022. The last catheterization November 2016 the MURPHY graft to the mid LAD was patent with no significant distaldisease although it was a small vessel. Saphenous vein graft to the OM1 branch was patent and the saphenous vein graft to the right coronary was totally occluded. The patient was noted to have in-stent restenosis in the mid right coronary which was some of the treated with stenting. Currently the patient denies any recurrence of his mid retrosternal chest pain which was his anginal equivalent prompting his original CABG and subsequent stenting procedures. The stenting procedures were done at [facility] by Dr. Joshua Lloyd. He denies palpitations. He states bilateral lower extremity edema. He denies claudication. He denies shortness of breath with activity, shortness of breath at rest, orthopnea, or PND. He denies chronic cough. He denies significant, sudden weight gain. He denies lightheadedness, dizziness, near-syncope, or syncope. He denies blood in urine, blood in stool, or epistaxis. He denies fever with chills. He denies myalgia. He states weakness and fatigue. His exercise level has remained stable. Intake Vital Signs 10/13/24 08:58 11/29/24 07:49 Height 5 ft 6 in 5 ft 6 in Weight: 194 lb 191 lb BMI 31.3 30.8 BP 139/77 H Blood Pressure Location Lt brachial Position Sitting Respiration 18 Pulse 76 Pulse Source Monitor Pulse Oximetry (%) 95 Intake Visit Reasons: Clearance visit Java Integration Developer Required: No Is patient in pain?: No Allergies clindamycin Allergy (Intermediate, Verified 11/29/24 10:42) Abd cramps/diarrhea cat dander (cats) Adverse Reaction (Verified 11/29/24 10:42) PT UNSURE OF REACTION codeine Adverse Reaction (Verified 11/29/24 10:42) Upset Stomach Medications ?Medication ?Instructions ?Recorded ?Confirmed ?Type coenzyme Q10 50 mg capsule (Co 100 mg PO DAILY vitamin 03/04/18 11/29/24 History Q-10) cholecalciferol (vitamin D3) 50 4,000 unit PO DAILY vi tamin 07/21/19 11/29/24 History mcg (2,000 unit) capsule aspirin 81 mg tablet,delayed 81 mg PO DAILY 05/05/23 1 History release (Adult Low Dose Aspirin) Held on 01/19/24. Instructions: Resume on 01/21/24. magnesium 250 mg tablet 500 mg PO DAILY 05/05/2303/25 History rosuvastatin 10 mg tablet 10 mg PO QDAY #90 tabs 11/0911/29/24 Rx multivitamin 1 tab PO DAILY 01/04/2403/25 History Have you fallen in the past year?: No Nurse's Note: lumbar surgery scheduled for december dr. siddiqui [facility] Medical History (Updated 11/29/24 @ 11:05 by Carlos Trujillo ELECTRICAL MECHANICAL TECHNICIAN, ELECTRICAL MECHANICAL TECHNICIAN-C) Obesity (BMI 30.0-34.9) MRSA (methicillin resistant staph aureus) culture positive Deaf Wears hearing aid Wears glasses Cancer High cholesterol DVT (deep venous thrombosis) Injury of head and neck Loss of consciousness Gastric reflux Former smoker History of edema History of echocardiogram History of stress test Cardiology follow-up encounter Pulmonary embolism Gastric artery aneurysm Ileostomy present Rectal cancer Intra abdominal hemorrhage Dilated aortic root 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 Subclavian artery stenosis, left GERD (gastroesophageal reflux disease) Meniere's disease Bilateral carotid artery stenosis Old myocardial infarction Premature ventricular contraction Peripheral vascular disease Presence of stent in coronary artery (~12/22/16) Essential hypertension 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 Hypoacusis Dyslipidemia HTN (hypertension) CAD (coronary artery disease) Surgical History History of coronary artery stent placement Presence of coronary angioplasty implant and graft (~12/22/16) History of tonsillectomy History of transurethral resection of prostate (~09/2016) S/P CABG (coronary artery bypass graft) (~09/16/98) S/P PTCA (percutaneous transluminal coronary angioplasty) (~12/22/16) Family History Father CAD (coronary artery disease) Myocardial infarction, Onset Age: 45 Mother Carotid artery stenosis Social History Smoking Status: Former smoker how long ago did patient quit smokin alcohol intake: current details: occasional ROS Const Const: Positive for fatigue and weakness; Negative for headache(s) or frequent falls Eyes Eyes: Negative for blurry vision ENT ENT: Negative for headache(s), dizziness or Nosebleed/epistaxis Cardio Chest Pain: No Palpitations: No Edema: Bilateral Muscle aches with walking: None Resp Respiratory: Negative for SOB with activity, SOB at rest or SOB orthopnea\\SOB lying down GI GI: Negative nausea, vomiting, heartburn, bright, red blood in stools or black,tarry stools : Negative for hematuria Musc Musc: Negative for muscle aches/ myalgia Skin Skin: Negative non-healing lesions or rash Neuro Neuro: Positive for weakness; Negative for dizziness, lightheadedness, near syncope, syncope, frequent falls, headache(s) or blurry vision Endo Endo: Positive for fatigue Allergy Allergy/Immunology: Negative for rash Cardiology Exam Const Appearance: cooperative, healthy appearing, comfortable and no acute distress Nutritional Appearance: average body habitus and well nourished Orientation: alert, awake and oriented x3 Head Head: normal to inspection Ears: hearing grossly normal bilaterally Nose: external nose normal Face and Sinus: face symmetric Mouth: moist mucous membranes Eyes General: appearance normal, both eyes and all related structures Eyelids: eyelids normal EOM: EOM intact bilaterally Neck Neck: normal visual inspection and no JVD Carotids: normal carotid upstroke Chest Chest inspection: normal inspection of the chest, symmetric chest movement and normal respiratory effort; Negative cough Auscultation: Bilateral: Clear to Auscultation Cardio Rate: regular rate Rhythm: regular rhythm Heart sounds: S1 normal and S2 normal; Negative rub, gallop or murmur GI GI: normal to inspection Neuro General: patient alert, patient awake, patient oriented x3 and CN's II-XI intactbilaterally Skin Skin: no rashes or lesions noted Extremities Pulses: Normal: Right Posterior Tibial Pulse, Left Posterior Tibial Pulse, RightRadial Pulse and Left Radial Pulse Lower Extremity Edema: None: Right and Trace: Left Psych Psychological: normal affect Supplemental Info Supplemental Information Carotid Duplex Ultrasound 04/02/2022 Interpretation Summary Irregular calcific plaque of the proximal right internal carotid artery with less than 50% stenosis. Plaque shadowing is noted. Less than 50% stenosis right external carotid artery Irregular calcific plaque at the proximal left internal carotid artery with lessthan 50% stenosis Less than 50% stenosis left external carotid artery Patent and antegrade right vertebral Bidirectional flow left vertebral suggesting possible proximal subclavian stenosis. Previous abnormality involving the right external carotid not duplicated on today's exam. This is compared to a previous examination of May 20, 2020 Ankle brachial index 04/02/2022 Interpretation Summary Normal right lower extremity posterior tibialis and dorsalis pedis ankle- brachial indices of 1.3 and 1.37 respectively with normal triphasic Doppler waveforms ? Normal left lower extremity posterior tibialis and dorsalis pedis ankle-brachialindices of 1.04 and 1.23 respectively with normal triphasic Doppler waveforms Echocardiogram 03/03/2022 Conclusions -Technically difficult exam due to body habitus -Exam indication: limited for pulmonary embolism -The left ventricle is small. Left ventricular systolic function is hyperdynamic. EF=73 +/- 5%. There is a small midcavitary gradient measuring 16mmHg. -The right ventricle is normal in size. Right ventricular systolic function is normal. RV poorly seen but appears grossly normal in limited views. -Similar hypoechoic lesion noted in liver -Exam was compared with the prior CC echocardiographic exam performed on 02/13/2022. Grossly similar with limited views. Chest CTA 03/01/2022 IMPRESSION: Positive for bilateral pulmonary emboli. Stress Test from 01/03/2024: Impression: 1. Pharmacologic (Regadenoson) evaluation 2. Peak pharmacologic ECG with no ischemic changes. 3. There were no cardiac dysrhythmias pretest, during pharmacologic infusion, or recovery. 5. Rest and stress SPECT Cardiolite nuclear imaging demonstrate relative uniform tracer uptake and myocardial perfusion appearing within normal limits. 6. The gated Cardiolite study reports an LVEF of 77%. Cardiac Catheterization 12/22/2016 Coronary Angiography Left Main: Angiographically normal Left Anterior Descending Artery: -Prox LAD: Mild calcification, is occluded -OM 1: Proximal - is occluded Right Coronary Artery: -Prox RCA: Previously placed stent has an instent 10-25% restenosis -Mid RCA: Eccentric: Diffuse: 95% stenosis; 85% stenosis; 75% stenosis -Distal RCA: Mild luminal irregularities -RT PDA: Proximal - Previously placed stent has an instent mild luminal irregularities Grafts: MURPHY graft to the Mid LAD is patent: filling a small caliber LAD with no angiographically significant appearing disease distal to the graft attachment Saphenous Vein graft to the 1st OM is patent: filling a small caliber OM system with no angiographically significant appearing disease distal tot he graft attachment Saphenous Vein graft to the RCA is totally occluded Intervention: Successful PTCA/SHIN of the mid/distal RCA Labs: LDL Cholesterol, (0-130) 83 mg/dL HDL Cholesterol, (40-) 64 mg/dL Cholesterol, (200) 161 mg/dL Triglycerides, (-199) 69 mg/dL Diagnostics: Electrocardiogram Echocardiogram Stress Test Stress Test Nuclear Medicine Chest X-Ray Chest CTA Abdomen Ultrasound Abdomen/Pelvis CT Carotid Duplex Extremity Arterial Study Venous Doppler Study Past Visits: Cardiology Visit Today Assessment and Plan Assessment and Plan (1) 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: Status: Chronic Qualifiers: [place] vs. transplanted heart: [place] heart Qualified Code(s): I25.10 -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 Plan: History of CABG in 1994 and subsequent stenting procedures the latest being in November 2016. He has a patent MURPHY to the LAD a patent graft to the OM branch of the circumflex and occluded graft to the distal right coronary but his right coronary has been stented latest time was in the mid right coronary artery November 2016. Patient's LV function is known to be normal. Stress test from 01/03/2024 was a normal pharmacologic stress test. Presenting rhythm was noted to be sinus rhythm. This appears stable. We will continue to monitor and not make any medication regimen changes. We will continue to promote risk factor and lifestyle modification. As he is greater than 1 year from last intervention, he will discontinue Plavix. He will remain on aspirin. (2) Dyslipidemia: Status: Chronic Plan: Lipid panel from 11/10/2023 showed total cholesterol: 161, HDL: 64, LDL: 83, and triglycerides: 69. He is reminded of LDL goal of 70 and below for secondary prevention. His most recent laboratory testing from primary care provider will be requested for continuity of care. (3) Peripheral vascular disease: Status: Chronic Plan: Patient has significant peripheral vascular disease which is being addressed andfollowed by surveillance with Dr. Reynolds the vascular surgeon. Secondary risk factors are being addressed as noted above. (4) Essential hypertension: Status: Chronic Plan: Patient's blood pressure is well-controlled. We will continue to monitor. We will not make any medication regimen changes. (5) Preoperative cardiovascular examination: Status: Acute Plan: Twelve-lead ECG on 11/29/2024 shows sinus rhythm with a right bundle branch blockat 61 bpm. Compared to twelve-lead ECG on 01/05/2024, this appears similar. Mostrecent stress test in December 2023 was negative for ischemia. Last echocardiogram in December 2021 showed LV function of 65%. To the best of his ability he is active without exertional symptoms. His biggest limitation from activity standpoint is his leg weakness, which is why he is proceeding with surgery. As he is greater than 1 year of intervention, he will discontinue Plavix altogether. If needed, he should hold aspirin approximately 7 days priorto procedure and resume as soon as possible postsurgery. Orders: Orders 12 Lead EKG performed by [facility] Today I25.10 - 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, Z95.5 - Presence of coronary angioplasty implant and graft Medications: Discontinued clopidogrel (Plavix) Discontinued Reason: Order Changed 75 mg PO DAILY 90 tabs 3RF Plan Details Additional Comments: Thank you for allowing us to participate in the patients plan of care, if you have any questions please do not hesitate to call. Plan was reviewed with patient/family member along with red flag symptoms. Understanding was acknowledged. Questions were answered to apparent satisfaction. This note was generated using a voice recognition system and there may be incorrect words, spelling or punctuation that were not noted when reviewing the office note prior to saving. Portions of this documentation were copied and pasted from previous office visitnotes to provide a cohesive continuity of the history. The note has been reviewed, edited, and updated, as necessary. Follow Up: PCP Lipids (For Continuity of Care) 12 Months () Coding Level of Care Code Off vis,est,level 4 Diagnoses Atherosclerosis of [place]eca coronary artery of [place] heart without angina pectoris I25.10 [place] vs. transplanted heart: [place] heart Dyslipidemia E78.5 Peripheral vascular disease I73.9 Essential hypertension I10 Preoperative cardiovascular examination Z01.810 Coding Level of Care Code Off vis,est,level 4 Diagnoses Atherosclerosis of [place] coronary artery of [place] heart without angina pectoris I25.10 [place] vs. transplanted heart: [place] heart Dyslipidemia E78.5 Peripheral vascular disease I73.9 Essential hypertension I10 Preoperative cardiovascular examination Z01.810 Clinical Quality Measures Falls Risk Screening/Assistive Devices Have you fallen in the past year?: No 11/29/24 1125 <Electronically signed by Carlos FRIAS> Date _ Carlos FRIAS Cosigner Signature: Date (if applicable) CC: Dr. Katy Faust MD ~ [facility] Work Phone: Reason for referral (narrative)* Outpatient Procedure (Routine) - Authorized Specialty Diagnoses / Procedures [facility] Referred To Contact [facility] [place] Diagnoses Pre-operative clearance Procedures ECG COMPLETE ECG ROUTINE ECG W/LEAST 12 LDS W/I&R Eric Hernandez MD [address] [place] [address] [place] [address] Referral ID Status Reason Start Date Expiration Date Visits Requested Visits Authorized [id number] Authorized Auto-Generat ed Referral 01/07/2022 01/07/2023 1 1 [facility] for referral (narrative)* Outpatient Procedure (Routine) - Authorized Specialty Diagnoses / Procedures [facility] Referred To Contact [facility] [place] Diagnoses Personal history of DVT (deep vein thrombosis) Anticoagulation management encounter History of pulmonary embolism Procedures US LEG VEIN DVT URBANO VAS LAB DUP-SCAN XTR VEINS COMPLETE BILATERAL STUDY Terry Cifuentes MD [address] [place] [address] [place] [address] Referral ID Status Reason Start Date Expiration Date Visits Requested Visits Authorized [id number] Authorized Auto-Generat ed Referral 05/20/2022 05/20/2023 1 1 [facility] for referral (narrative)* Diagnostic Procedure Only (Routine) - Closed Specialty Diagnoses / Procedures [facility] Referred To Contact XR IMAGING Diagnoses 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) Preoperative examination Procedures XR COLON SINGLE CONTRAST RADIOLOGIC EXAM COLON SINGLE CONTRAST STUDY Ramiro Cheung MD [address] [place] [address] Xr Imaging Referral ID Status Reason Start Date Expiration Date V isits Requested Visits Authorized [id number] Closed Auto-Generate d Referral 04/01/2022 05/01/2023 1 1 [facility] for referral (narrative)* Diagnostic Procedure Only (Routine) - Pending Review Specialty Diagnoses / Procedures Referred By Contac t Referred To Contact US IMAGING Diagnoses Deep vein thrombosis (DVT) of both lower extremities, unspecified chronicity, unspecified vein (HCC) 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) Procedures US DVT LOWER BILATERAL DUP-SCAN XTR VEINS COMPLETE BILATERAL STUDY Yessica Tinoco APRN.CNP [address] [place] [address] Us Imaging Referral ID Status Reason Start Date Expiration Date Visits Requested Visits Authorized [id number] Pending Review Auto-Generat ed Referral 10/14/2022 10/30/2023 1 1 [facility] for referral (narrative)* Outpatient Procedure (Routine) - Authorized Specialty Diagnoses / Procedures Referred By Contac t Referred To Contact [facility] [place] Diagnoses Deep vein thrombosis (DVT) of both lower extremities, unspecified chronicity, unspecified vein (HCC) Localized edema Procedures US LEG VEIN DVT UNL VAS LAB DUP-SCAN XTR VEINS UNILATERAL/LIMITED STUDY Yessica Tinoco APRN.CNP [address] [place] [address] [place] [address] Referral ID Status Reason Start Date Expiration Date Visits Requested Visits Authorized [id number] Authorized Auto-Generat ed Referral 10/15/2022 10/01/2023 1 1 [facility] for referral (narrative)* Outpatient Procedure (Routine) - Authorized Specialty Diagnoses / Procedures Referred By Contac t Referred To Contact [facility] Diagnoses Bruit of right carotid artery Procedures US CAROTID ARTERIES URBANO VAS LAB DUPLEX SCAN EXTRACRANIAL ART COMPL BI STUDY Terry Cifuentes MD [address] [place] [address] [facility] [address] [address] Referral ID Status Reason Start Date Expiration Date Visits Requested Visits Authorized [id number] Authorized Auto-Generat ed Referral 11/03/2022 11/03/2023 1 1 * Outpatient Procedure (Routine) - Pending Review Specialty Diagnoses / Procedures Referred By Contac t Referred To Contact [facility] Diagnoses 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) Procedures US LEG VEIN DVT UNL VAS LAB DUP-SCAN XTR VEINS UNILATERAL/LIMITED STUDY Terry Cifuentes MD [address] [place] [address] [address] Referral ID Status Reason Start Date Expiration Date Visits Requested Visits Authorized [id number] Pending Review Auto-Generat ed Referral 11/03/2022 11/03/2023 1 1 [facility] for referral (narrative)* Diagnostic Procedure Only (Routine) - Pending Review Specialty Diagnoses / Procedures Referred By Contac t Referred To Contact XR IMAGING Diagnoses Pain in left arm Procedures XR SHOULDER GENERAL 3V OR MORE AP/TRUE AP/OTHER LEFT RADEX SHOULDER COMPLETE MINIMUM 2 VIEWS Michael Christian MD [address] [facility] [facility] [place] [address] Xr Imaging [facility] [address] Referral ID Status Reason Start Date Expiration Date Visits Requested Visits Authorized [id number] Pending Review Auto-Generat ed Referral 06/11/2023 07/10/2024 1 1 [facility] for referral (narrative)* Consultation (Routine) - Pending Review Specialty Diagnoses / Procedures Referred By Contac t Referred To Contact Colon and Rectal Surgery Diagnoses Rectal bleeding History of rectal cancer Colorectal anastomotic stricture Procedures [place] OFFICE/OUTPATIENT NEW HIGH MDM 60 MINUTES Sabrina Muñiz MD [address] [facility] [address] [place] [address] Ana Cheung [address] [place] [address] Referral ID Status Reason Start Date Expiration Date Visits Requested Visits Authorized [id number] Pending Review Specialty Services Required 07/15/2023 07/14/2024 1 1 [facility] for referral (narrative)No reason for referral [facility] Work Phone: Reason for visit Narrative* Diagnostic Procedure Only (Routine) - Closed Specialty Diagnoses / Procedures Referred By Contac t Referred To Contact XR IMAGING Diagnoses Pain in left arm Procedures XR SHOULDER GENERAL 3V OR MORE AP/TRUE AP/OTHER LEFT RADEX SHOULDER COMPLETE MINIMUM 2 VIEWS Michael Christian MD [address] [place] [address] Xr Imaging [place] [address] Referral ID Status Reason Start Date Expiration Date V isits Requested Visits Authorized [id number] Closed Auto-Generate d Referral 06/11/2023 07/10/2024 1 1 [facility] for visit Narrative* Imaging (Routine) - Authorized Specialty Diagnoses / Procedures Referred By Contac t Referred To Contact Radiology Diagnoses Acoustic neuroma (Multi) Procedures MR IAC [place] [address] Department of Otolaryngology, Head [place] [address] Phone: tel: fax: Referral ID Status Reason Start Date Expiration Date Visits Requested Visits Authorized [id number] Authorized Perform Procedure 04/01/2023 03/31/2024 1 1 [facility] Work Phone: Chief Complaint NPV6-month f/u visit with hearing test Family History No Family History Records FoundUnknown Family Member Name Dates Details Family history of myocardial infarction: Father(V17.3, Z82.49) Status:Active Unknown Family Member Name Dates Details Family history of myocardial infarction: Father(V17.3, Z82.49) Status:Active Relationship Condition Age at Onset Recorded Date/T sonny father Coronary artery disease Unknown Myocardial infarction 45 mother Stenosis of carotid artery Unknown Summary Purpose [place] Directives No Advanced Directives Records FoundDocuments on File Type Date Recorded Patient Set Decorator Expl anation [place] Directive(s) 02/04/2022 10:42 AM Date Activated Date Inactivated Comments 03/03/2022 4:01 PM 03/10/2022 3:07 PM Question Answer Comments DNR Order Discussed With: Patient Date Activated Date Inactivated Comments 03/02/2022 5:34 PM 03/03/2022 4:01 PM Question Answer Comments Order Discussed With: Patient Date Activated Date Inactivated Comments 03/02/2022 3:04 PM 03/02/2022 5:34 PM Question Answer Comments DNR Order Discussed With: Patient Date Activated Date Inactivated Comments 03/02/2022 11:19 AM 03/02/2022 3:04 PM Question Answer Comments Full Code Order Discussed With: Patient Date Activated Date Inactivated Comments 02/26/2022 3:41 PM 03/02/2022 8:26 AM Documents on File Type Date Recorded Patient Set Decorator Expl anation Advance Directive(s) 04/29/2021 1:55 PM Advance Directive(s) 03/20/2021 8:14 AM Advance Directive(s) 03/12/2021 12:52 PM Documents on File Type Date Recorded Patient Set Decorator Expl anation Advance Directive(s) 04/29/2021 1:55 PM Advance Directive(s) 03/20/2021 8:14 AM Advance Directive(s) 03/12/2021 12:52 PM [place] Directive Response Recorded Date/ Time [place] Directives No December 11:52pm Living Will Yes April 07 7:04pm Power of Mens Locker Room Attendant Yes April 07, 2019 7:04pm [place] Directive Response Recorded Date/ Time [place] Directives No December 10:52pm Living Will Yes April 07 6:04pm Power of Mens Locker Room Attendant Yes April 07, 2019 6:04pm Latest Code Status on File Code Status Date Activated Date Inactivated Comments Full Code 01/30/2022 7:09 PM Advance Directive Response Recorded Date/ Time Name of Medical Power of Mens Locker Room Attendant Marilu February 01, 2022 2:25pm [place] Directives No December 10:52pm Living Will Yes February 01 2:25pm Power of Mens Locker Room Attendant Yes February 01, 2022 2:25pm Latest Code Status on File Code Status Date Activated Date Inactivated Comments Full Code 01/30/2022 7:09 PM 02/01/2022 5:30 PM Documents on File Type Date Recorded Patient Set Decorator Expl anation [place] Directive(s) 02/04/2022 10:42 AM Latest Code Status on File Code Status Date Activated Date Inactivated Comments Full Code 02/04/2022 2:47 PM Full Code Order Discussed With: Patient Full Code 01/30/2022 7:09 PM 02/01/2022 5:30 PM [place] Directive Response Recorded Date/ Time Name of Medical Power of Mens Locker Room Attendant Marilu February 01, 2022 2:25pm Name of Medical Power of Mens Locker Room Attendant February 27, 2022 4:07am [place] Directives No December 10:52pm Living Will Yes February 27, 2 022 4:07am Power of Mens Locker Room Attendant Yes February 27, 2022 4:07am [place] Directive Response Recorded Date/ Time Name of Medical Power of Mens Locker Room Attendant Marilu February 01, 2022 2:25pm Name of Medical Power of Mens Locker Room Attendant February 27, 2022 4:07am Name of Medical Power of Mens Locker Room Attendant Marilu Luna March 01, 2022 8:23pm [place] Directives No December 10:52pm Living Will Yes March 01 8:23pm Power of Mens Locker Room Attendant Yes March 01, 2 023 8:23pm Latest Code Status on File Code Status Date Activated Date Inactivated Comments DNR-CCA 03/03/2022 4:01 PM DNR Order Discussed With: Patient FULL CODE ALLISON 03/02/2022 5:34 PM 03/03/2022 4:01 PM Order Discussed With: Patient DNR-CCA 03/02/2022 3:04 PM 03/02/2022 5:34 PM Full Code 03/02/2022 11:19 AM 03/02/2022 3:04 PM Full Code 02/26/2022 3:41 PM 03/02/2022 8:26 AM Latest Code Status on File Code Status Date Activated Date Inactivated Comments DNR-CCA 03/03/2022 4:01 PM 03/10/2022 3:07 PM Latest Code Status on File Code Status Date Activated Date Inactivated Comments DNR-CCA 03/03/2022 4:01 PM 03/10/2022 3:07 PM FULL CODE ALLISON 03/02/2022 5:34 PM 03/03/2022 4:01 PM DNR-CCA 03/02/2022 3:04 PM 03/02/2022 5:34 PM Full Code 03/02/2022 11:19 AM 03/02/2022 3:04 PM Full Code 02/26/2022 3:41 PM 03/02/2022 8:26 AM Latest Code Status on File Code Status Date Activated Date Inactivated Comments DNR-CCA 03/03/2022 4:01 PM 03/10/2022 3:07 PM Question Answer Comments DNR Order Discussed With: Patient Code Status History Code Status Date Activated Date Inactivated Comments FULL CODE ALLISON 03/02/2022 5:34 PM 03/03/2022 4:01 PM Question Answer Comments Order Discussed With: Patient DNR-CCA 03/02/2022 3:04 PM 03/02/2022 5:34 PM Question Answer Comments DNR Order Discussed With: Patient Full Code 03/02/2022 11:19 AM 03/02/2022 3:04 PM Question Answer Comments Full Code Order Discussed With: Patient Full Code 02/26/2022 3:41 PM 03/02/2022 8:26 AM Latest Code Status on File Code Status Date Activated Date Inactivated Comments DNR-CCA 03/03/2022 4:01 PM 03/10/2022 3:07 PM Question Answer Comments DNR Order Discussed With: Patient Code Status History Code Status Date Activated Date Inactivated Comments FULL CODE ALLISON 03/02/2022 5:34 PM 03/03/2022 4:01 PM Question Answer Comments Order Discussed With: Patient DNR-CCA 03/02/2022 3:04 PM 03/02/2022 5:34 PM Question Answer Comments DNR Order Discussed With: Patient Full Code 03/02/2022 11:19 AM 03/02/2022 3:04 PM Question Answer Comments Full Code Order Discussed With: Patient Full Code 02/26/2022 3:41 PM 03/02/2022 8:26 AM Latest Code Status on File Code Status Date Activated Date Inactivated Comments DNR-CCA 03/03/2022 4:01 PM 03/10/2022 3:07 PM Question Answer Comments DNR Order Discussed With: Patient Code Status History Code Status Date Activated Date Inactivated Comments FULL CODE ALLISON 03/02/2022 5:34 PM 03/03/2022 4:01 PM Question Answer Comments Order Discussed With: Patient DNR-CCA 03/02/2022 3:04 PM 03/02/2022 5:34 PM Question Answer Comments DNR Order Discussed With: Patient Full Code 03/02/2022 11:19 AM 03/02/2022 3:04 PM Question Answer Comments Full Code Order Discussed With: Patient Full Code 02/26/2022 3:41 PM 03/02/2022 8:26 AM Advance Directive Response Recorded Date/ Time [place] Directives No December 11:52pm Living Will No July 17, 2022 6 :39pm Power of Mens Locker Room Attendant No July 17, 2022 6:39pm Advance Directive Response Recorded Date/ Time [place] Directives No December 11:52pm Living Will No June 11, 2023 6:49pm Power of Mens Locker Room Attendant No June 10 6:49pm Date Activated Date Inactivated Comments 03/03/2022 4:01 PM 03/10/2022 3:07 PM Question Answer Comments DNR Order Discussed With: Patient Date Activated Date Inactivated Comments 03/02/2022 5:34 PM 03/03/2022 4:01 PM Question Answer Comments Order Discussed With: Patient Date Activated Date Inactivated Comments 03/02/2022 3:04 PM 03/02/2022 5:34 PM Question Answer Comments DNR Order Discussed With: Patient Date Activated Date Inactivated Comments 03/02/2022 11:19 AM 03/02/2022 3:04 PM Question Answer Comments Full Code Order Discussed With: Patient Date Activated Date Inactivated Comments 02/26/2022 3:41 PM 03/02/2022 8:26 AM Advance Directive Response Recorded Date/ Time [place] Directives on File Yes July 072023 8:08am Name of Medical Power of Mens Locker Room Attendant Marilu July 08, 2023 8:08am Advance Directives Yes July 08, 2023 8:08am Living Will Yes July 08, 2023 8: 08am Power of Mens Locker Room Attendant Yes July 08, 2023 8:08am Advance Directive Response Recorded Date/ Time Living Will No April 25 11:35am Do you have a Healthcare Power of Mens Locker Room Attendant? No April 25, 2024 11:35am Advance Directives Yes July 27 2:08pm Advance Directive Response Recorded Date/ Time [place] Directives Yes July 27 2:08pm Reason for Referral Specialty Diagnoses / Procedures Referred By Contac t Referred To Contact Oncology Diagnoses Rectal malignant neoplasm (HCC) Procedures CONSULT TO ONCOLOGY OFFICE/OUTPATIENT [facility] 60-74 MINUTES Caty Bowens MD [address] [place] [id number] Referral ID Status Reason Start Date Expiration Date Visits Requested Visits Authorized [id number] Authorized PCP Requested Referral 06/05/2021 05/29/2022 1 1 Specialty Diagnoses / Procedures Referred By Contac t Referred To Contact MR IMAGING Diagnoses Rectal malignant neoplasm (HCC) Anal squamous cell carcinoma (HCC) Procedures MRI RECTUM WO/W IVCON MRI PELVIS W/O & W/CONTRAST MATERIAL Alexia Rao, [employer] INST[employer]ER [address] [place] [address] Mr Imaging Referral ID Status Reason Start Date Expiration Date Visits Requested Visits Authorized [id number] Pending Review Auto-Generat ed Referral 07/18/2021 08/17/2022 1 1 Referral ID Status Reason Start Date Expiration Date V isits Requested Visits Authorized [id number] Closed Auto-Generate d Referral 07/18/2021 08/17/2022 1 1 Specialty Diagnoses / Procedures Referred By Contac t Referred To Contact MR IMAGING Diagnoses Malignant neoplasm of rectum (HCC) Procedures MRI RECTUM WO/W IVCON MRI PELVIS W/O & W/CONTRAST MATERIAL Ramiro Cheung MD [address] [address] Mr Imaging Referral ID Status Reason Start Date Expiration Date Visits Requested Visits Authorized [id number] Pending Review Auto-Generat ed Referral 09/25/2021 10/25/2022 1 1 Specialty Diagnoses / Procedures Referred By Contac t Referred To Contact Cardiology Diagnoses Pre-op evaluation Atherosclerosis of coronary artery bypass graft of [place] heart without angina pectoris Bilateral carotid artery stenosis Procedures CONSULT TO CARDIOLOGY OFFICE/OUTPATIENT [facility] 60-74 MINUTES Kristel John PA-C [address] [place] [address] Referral ID Status Reason Start Date Expiration Date Visits Requested Visits Authorized [id number] Authorized PCP Requested Referral 01/07/2022 01/07/2023 1 1 Specialty Diagnoses / Procedures Referred By Contac t Referred To Contact CT IMAGING Diagnoses Rectal cancer (HCC) Malignant neoplasm of rectum (HCC) Procedures CT CHEST W IVCON DIAGNOSTIC COMPUTED TOMOGRAPHY THORAX W/CONTRAST Ramiro Cheung MD [address] [place] [address] Ct Imaging Referral ID Status Reason Start Date Expiration Date V isits Requested Visits Authorized [id number] Closed Auto-Generate d Referral 12/17/2021 01/16/2023 1 1 Specialty Diagnoses / Procedures Referred By Contac t Referred To Contact CT IMAGING Diagnoses Rectal cancer (HCC) Malignant neoplasm of rectum (HCC) Procedures CT ABD/PEL W IVCON CT ABD & PELVIS W/CONTRAST Ramiro Cheung MD [address] [address] Ct Imaging Referral ID Status Reason Start Date Expiration Date V isits Requested Visits Authorized [id number] Closed Auto-Generate d Referral 12/17/2021 01/16/2023 1 1 Specialty Diagnoses / Procedures Referred By Contac t Referred To Contact Radiology Diagnoses Acoustic neuroma (CMS/HCC) Procedures MR IAC w [place] [address] [address] Department [place] [address] Referral ID Status Reason Start Date Expiration Date Visits Requested Visits Authorized [id number] Pending Review Perform Procedure 03/05/2023 03/04/2024 1 1 Specialty Diagnoses / Procedures Referred By Contac t Referred To Contact Orthopedics Diagnoses Left arm pain Procedures CONSULT TO ORTHOPAEDICS OFFICE/OUTPATIENT [facility] 60 MINUTES Norm Parker, FLOW SPECIALIST.SECURITY SYSTEM INSTALLER [address] [place] [address] Referral ID Status Reason Start Date Expiration Date Visits Requested Visits Authorized [id number] Authorized PCP Requested Referral 04/23/2023 04/20/2024 1 1 Specialty Diagnoses / Procedures Referred By Contac t Referred To Contact Podiatry Diagnoses Ingrown nail of great toe Procedures CONSULT TO PODIATRY OFFICE/OUTPATIENT [facility] 60 MINUTES Mary Anne Alejandro, FLOW SPECIALIST.SECURITY SYSTEM INSTALLER [address] [place] [address] Referral ID Status Reason Start Date Expiration Date Visits Requested Visits Authorized [id number] Authorized PCP Requested Referral 05/31/2023 05/30/2024 1 1 Specialty Diagnoses / Procedures Referred By Contac t Referred To Contact Diagnoses History of rectal cancer Procedures REFER TO PACC - PRE ANESTHESIA CONSULTATION CLINIC OFFICE/OUTPATIENT [facility] 60 MINUTES Ramiro Cheung MD [address] [place] [address] Referral ID Status Reason Start Date Expiration Date Visits Requested Visits Authorized [id number] Authorized PCP Requested Referral 08/03/2023 08/02/2024 1 1 Specialty Diagnoses / Procedures Referred By Contac t Referred To Contact MR IMAGING Diagnoses History of rectal cancer Procedures MRI RECTUM WO/W IVCON MRI PELVIS W/O & W/CONTRAST MATERIAL Ramiro Cheung MD [address] [place] [address] [facility] [place] [address] Referral ID Status Reason Start Date Expiration Date Visits Requested Visits Authorized [id number] Authorized Auto-Generat ed Referral 08/03/2023 09/01/2024 1 1 Specialty Diagnoses / Procedures Referred By Contac t Referred [facility] Diagnoses History of rectal cancer Procedures ECG COMPLETE ECG ROUTINE ECG W/LEAST 12 LDS W/I&R Ramiro Cheung MD [address] [place] [address] [facility] [place] [address] [place] [address] Referral ID Status Reason Start Date Expiration Date Visits Requested Visits Authorized [id number] Pending Review Auto-Generat ed Referral 08/03/2023 08/02/2024 1 1 Specialty Diagnoses / Procedures Referred By Karen lira Referred To Contact Diagnoses History of rectal cancer Procedures CONSULT TO [facility]/OUTPATIENT [facility] 60 MINUTES Ramiro Cheung MD [address] [place] [address] Referral ID Status Reason Start Date Expiration Date Visits Requested Visits Authorized [id number] Authorized PCP Requested Referral 08/03/2023 08/02/2024 1 1 Chief Complaint and Reason for Visit Chief Complaint LINE PLACEMENT Chief Complaint cardiac clearance S/P CABG PRE OP Reason for Visit Dilated aortic root 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 Bilateral carotid artery stenosis Dyslipidemia Essential hypertension Peripheral vascular disease Chief Complaint cardiac clearance S/P CABG PRE OP FEVER Reason for Visit Dilated aortic root 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 Bilateral carotid artery stenosis Dyslipidemia Essential hypertension Peripheral vascular disease Chief Complaint cardiac clearance S/P CABG PRE OP FEVER Amb Documentation rectal bleed Reason for Visit Dilated aortic root 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 Bilateral carotid artery stenosis Dyslipidemia Essential hypertension Peripheral vascular disease Chief Complaint cardiac clearance S/P CABG PRE OP FEVER Amb Documentation rectal bleed SOB Reason for Visit Dilated aortic root 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 Bilateral carotid artery stenosis Dyslipidemia Essential hypertension Peripheral vascular disease Chief Complaint cardiac clearance S/P CABG PRE OP FEVER Amb Documentation rectal bleed SOB CS/PVD Amb Documentation Reason for Visit Dilated aortic root 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 Bilateral carotid artery stenosis Dyslipidemia Essential hypertension Peripheral vascular disease Chief Complaint 9 M FU CONSULT-SUBLAVIAN STEAL SYNDROME VASCULAR DISEASE Reason for Visit Dilated aortic root 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 Bilateral carotid artery stenosis Dyslipidemia Essential hypertension Peripheral vascular disease 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 Claudication of left lower extremity 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 Chief Complaint 9 M FU CONSULT-SUBLAVIAN STEAL SYNDROME VASCULAR DISEASE ASSULT Reason for Visit Dilated aortic root 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 Bilateral carotid artery stenosis Dyslipidemia Essential hypertension Peripheral vascular disease 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 Claudication of left lower extremity 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 Chief Complaint 9 M FU CONSULT-SUBLAVIAN STEAL SYNDROME VASCULAR DISEASE ASSULT Atherosclerosis of [place] arteries of extremities Reason for Visit Dilated aortic root 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 Bilateral carotid artery stenosis Dyslipidemia Essential hypertension Peripheral vascular disease 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 Claudication of left lower extremity 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 Chief Complaint Admit Date CERVICAL SPINE April 21, 2024 12:23pm room 1 April 21, 2024 12:33pm ABD April 25, 2024 10:35am LUMBAR SPINE July 06, 2024 8:28am S/P LT SUB A STENT August 01, 2024 8:46a m Reason for Visit Admit Date Spinal stenosis of lumbar re gion with neurogenic claudication April 21, 2024 12:23pm Status post cervical spinal fusion Febru [email or web address] 12:23pm Spinal stenosis of lumbar re gion with neurogenic claudication July 06, 2024 8:28am Status post cervical spinal fusion July 062024 8:28am Chief Complaint Admit Date ABD April 25, 2024 10:35am LUMBAR SPINE July 06, 2024 8:28am S/P LT SUB A STENT August 01, 2024 8:46a m Discuss results,1 YFU August 23, 2024 9: 49am Reason for Visit Admit Date Spinal stenosis of lumbar region with ne urogenic claudication July 06, 2024 8:28am Status post cervical spinal fusion July 062024 8:28am Chief Complaint Admit Date LUMBAR SPINE July 06, 2024 8:28am S/P LT SUB A STENT August 01, 2024 8:46a m Discuss results,1 YFU August 23, 2024 9: 49am THORACIC SPINE September 13, 2024 1:14 pm RM 3 September 13, 2024 1:29 pm thoracic radiculopathy, history of GI ma lignancy September 20, 2024 10:14am LUMBAR STENOSIS, RX HERE September 22, 2024 8:30am S/P L SUBCLAVIAN STENT October 10, 2024 7:39am THORACIC SPINE October 13, 2024 8: 21am Reason for Visit Admit Date Spinal stenosis of lumbar region with ne urogenic claudication July 06, 2024 8:28am Status post cervical spinal fusion July 062024 8:28am Subclavian artery stenosis, left August 232024 9:49am Subclavian steal syndrome of left subcla vian artery August 23, 2024 9:49am Spinal stenosis of lumbar region with ne urogenic claudication September 13, 2024 1:14pm Status post cervical spinal fusion September 13, 2024 1:14pm Thoracic radiculopathy September 13, 2024 1 :14pm Reason for Visit Admit Date Spinal stenosis of lumbar re gion with neurogenic claudication July 06, 2024 8:28am Status post cervical spinal fusion July 062024 8:28am Subclavian artery stenosis, left August 232024 9:49am Subclavian steal syndrome of left subcla vian artery August 23, 2024 9:49am Spinal stenosis of lumbar re gion with neurogenic claudication September 13, 2024 1:14pm Status post cervical spinal fusion September 13, 2024 1:14pm Thoracic radiculopathy September 13, 2024 1 :14pm Lumbar stenosis October 13, 2024 8: 21am Obesity (BMI 30.0-34.9) October 13 8:21am Spinal stenosis of lumbar re gion with neurogenic claudication October 13, 2024 8:21am Thoracic radiculopathy October 13, 2024 8:21am Chief Complaint Admit Date Discuss results,1 YFU August 23, 2024 9: 49am THORACIC SPINE September 13, 2024 1:14 pm RM 3 September 13, 2024 1:29 pm thoracic radiculopathy, history of GI ma lignancy September 20, 2024 10:14am LUMBAR STENOSIS, RX HERE September 22, 2024 8:30am S/P L SUBCLAVIAN STENT October 10, 2024 7:39am THORACIC SPINE October 13, 2024 8: 21am Clearance visit November 29, 2024 10 :38am Reason for Visit Admit Date Subclavian artery stenosis, left August 232024 9:49am Subclavian steal syndrome of left subcla vian artery August 23, 2024 9:49am Spinal stenosis of lumbar re gion with neurogenic claudication September 13, 2024 1:14pm Status post cervical spinal fusion September 13, 2024 1:14pm Thoracic radiculopathy September 13, 2024 1 :14pm Lumbar stenosis October 13, 2024 8: 21am Obesity (BMI 30.0-34.9) October 13 8:21am Spinal stenosis of lumbar re gion with neurogenic claudication October 13, 2024 8:21am Thoracic radiculopathy October 13, 2024 8:21am Preoperative cardiovascular examination November 29, 2024 10:38am Atherosclerotic heart diseas e of [place] coronary artery without angina pectoris November 29, 2024 10:38am Dyslipidemia November 29, 2024 10 :38am Essential hypertension November 29, 2024 10:38am Peripheral vascular disease November 29, 2024 10:38am Medications Administered Section Inactive Administered Medications - up to 3 most recent administrations Medication Order MAR Action Action Date Dose Rate Site NORepinephrine 16 mg in D5W 250 mL (LEVOPHED) 0.6-50 mcg/min (0.5625-46.875 mL/hr, rounded to 0.56-46.88 mL/hr), INTRAVENOUS, CONTINUOUS, Starting on Wed02/01/22 at 1900, Until Wed02/04/22 at 1156, Refrigerate - Noncytotoxic Vesicant - Central Line Only, Select One: Titrate, Choose target parameter: Mean Arterial Pressure (MAP), Titrate to a MAP (mmHg): 65-75, Starting Dose: 0.6-10 mcg/min or Continue at Current Infusion Rate, Titrate Amount/Interval: As needed for BP support., Contact LIP: NA, If this medication is paused for any duration of time and needs to be restarted: Per LIP order Rate/Dose Change 02/01/2022 10:26 PM EST 2 mcg/min 1.875 mL/hr Rate/Dose Change 02/01/2022 10:15 PM EST 4 mcg/min 3.75 m L/hr Rate/Dose Change 02/01/2022 9:48 PM EST 2 mcg/min 1.875 m L/hr Health Concerns Infection Onset Date Last Indicated Resolved Time COVID-19 Rule-Out 02/01/2022 02/01/2022 02/02/2022 12:41 AM EST Infection Onset Date Last Indicated Resolved Time COVID-19 Rule-Out 02/08/2022 02/08/2022 Infection Onset Date Last Indicated Resolved Time COVID-19 Rule-Out 02/08/2022 02/11/2022 02/11/2022 1:02 PM EST Infection Onset Date Last Indicated Resolved Time COVID-19 Rule-Out 03/02/2022 03/03/2022 03/03/2022 2:22 AM EST Additional Source Comments (unrecognized sect ion and content) No Status Records FoundNo Status Records FoundNo Status Records FoundNo Status Records FoundNo Status Records FoundNo Status Records FoundNo Status Records FoundNo Status Records Found INFORMATION SOURCE (unrecogn ized section and content) DATE CREATED AUTHOR 02/11/2021 [employer] DATE CREATED AUTHOR AUTHOR'S ORGANIZ ATION 02/16/2021 [facility] DATE CREATED AUTHOR AUTHOR'S ORGANIZ ATION 12/07/2022 [facility] DATE CREATED AUTHOR AUTHOR'S ORGANIZ ATION 07/19/2023 [facility] DATE CREATED AUTHOR AUTHOR'S ORGANIZ ATION 09/24/2023 [facility] DATE CREATED AUTHOR AUTHOR'S ORGANIZ ATION 04/05/2024 [facility] DATE CREATED AUTHOR AUTHOR'S ORGANIZ ATION 12/27/2024 [facility] DATE CREATED AUTHOR AUTHOR'S ORGANIZ ATION 01/03/2025 [facility] Source Comments (unrecognize d section and content) In the event this informatio n is protected by the Federal Confidentiality of Alcohol and Drug Abuse Patient Records regulations: The Federal rules restrict any use of the information to criminally investigate or prosecute any alcohol or drug abuse patient.[facility] the event this information is protected by the Federal Confidentiality of Alcohol and Drug Abuse Patient Records regulations: The Federal rules restrict any use of the information to criminally investigate or prosecute any alcohol or drug abuse patient.[facility] CenterIn the event this information is protected by the Federal Confidentiality of Alcohol and Drug Abuse Patient Records regulations: The Federal rules restrict any use of the information to criminally investigate or prosecute any alcohol or drug abuse patient.[facility] CenterIn the event this information is protected by the Federal Confidentiality of Alcohol and Drug Abuse Patient Records regulations: The Federal rules restrict any use of the information to criminally investigate or prosecute any alcohol or drug abuse patient.[facility] CenterIn the event this information is protected by the Federal Confidentiality of Alcohol and Drug Abuse Patient Records regulations: The Federal rules restrict any use of the information to criminally investigate or prosecute any alcohol or drug abuse patient.[facility] CenterIn the event this information is protected by the Federal Confidentiality of Alcohol and Drug Abuse Patient Records regulations: The Federal rules restrict any use of the information to criminally investigate or prosecute any alcohol or drug abuse patient.[facility] CenterIn the event this information is protected by the Federal Confidentiality of Alcohol and Drug Abuse Patient Records regulations: The Federal rules restrict any use of the information to criminally investigate or prosecute any alcohol or drug abuse patient.[facility] CenterIn the event this information is protected by the Federal Confidentiality of Alcohol and Drug Abuse Patient Records regulations: The Federal rules restrict any use of the information to criminally investigate or prosecute any alcohol or drug abuse patient.[facility] CenterIn the event this information is protected by the Federal Confidentiality of Alcohol and Drug Abuse Patient Records regulations: The Federal rules restrict any use of the information to criminally investigate or prosecute any alcohol or drug abuse patient.[facility] CenterIn the event this information is protected by the Federal Confidentiality of Alcohol and Drug Abuse Patient Records regulations: The Federal rules restrict any use of the information to criminally investigate or prosecute any alcohol or drug abuse patient.[facility] CenterIn the event this information is protected by the Federal Confidentiality of Alcohol and Drug Abuse Patient Records regulations: The Federal rules restrict any use of the information to criminally investigate or prosecute any alcohol or drug abuse patient.[facility] CenterIn the event this information is protected by the Federal Confidentiality of Alcohol and Drug Abuse Patient Records regulations: The Federal rules restrict any use of the information to criminally investigate or prosecute any alcohol or drug abuse patient.[facility] CenterIn the event this information is protected by the Federal Confidentiality of Alcohol and Drug Abuse Patient Records regulations: The Federal rules restrict any use of the information to criminally investigate or prosecute any alcohol or drug abuse patient.[facility] CenterIn the event this information is protected by the Federal Confidentiality of Alcohol and Drug Abuse Patient Records regulations: The Federal rules restrict any use of the information to criminally investigate or prosecute any alcohol or drug abuse patient.[facility] CenterIn the event this information is protected by the Federal Confidentiality of Alcohol and Drug Abuse Patient Records regulations: The Federal rules restrict any use of the information to criminally investigate or prosecute any alcohol or drug abuse patient.[facility] CenterIn the event this information is protected by the Federal Confidentiality of Alcohol and Drug Abuse Patient Records regulations: The Federal rules restrict any use of the information to criminally investigate or prosecute any alcohol or drug abuse patient.[facility] CenterIn the event this information is protected by the Federal Confidentiality of Alcohol and Drug Abuse Patient Records regulations: The Federal rules restrict any use of the information to criminally investigate or prosecute any alcohol or drug abuse patient.[facility] CenterIn the event this information is protected by the Federal Confidentiality of Alcohol and Drug Abuse Patient Records regulations: The Federal rules restrict any use of the information to criminally investigate or prosecute any alcohol or drug abuse patient.[facility] CenterIn the event this information is protected by the Federal Confidentiality of Alcohol and Drug Abuse Patient Records regulations: The Federal rules restrict any use of the information to criminally investigate or prosecute any alcohol or drug abuse patient.[facility] CenterIn the event this information is protected by the Federal Confidentiality of Alcohol and Drug Abuse Patient Records regulations: The Federal rules restrict any use of the information to criminally investigate or prosecute any alcohol or drug abuse patient.[facility] CenterIn the event this information is protected by the Federal Confidentiality of Alcohol and Drug Abuse Patient Records regulations: The Federal rules restrict any use of the information to criminally investigate or prosecute any alcohol or drug abuse patient.[facility] CenterIn the event this information is protected by the Federal Confidentiality of Alcohol and Drug Abuse Patient Records regulations: The Federal rules restrict any use of the information to criminally investigate or prosecute any alcohol or drug abuse patient.[facility] CenterIn the event this information is protected by the Federal Confidentiality of Alcohol and Drug Abuse Patient Records regulations: The Federal rules restrict any use of the information to criminally investigate or prosecute any alcohol or drug abuse patient.[facility] CenterIn the event this information is protected by the Federal Confidentiality of Alcohol and Drug Abuse Patient Records regulations: The Federal rules restrict any use of the information to criminally investigate or prosecute any alcohol or drug abuse patient.[facility] CenterIn the event this information is protected by the Federal Confidentiality of Alcohol and Drug Abuse Patient Records regulations: The Federal rules restrict any use of the information to criminally investigate or prosecute any alcohol or drug abuse patient.[facility] CenterIn the event this information is protected by the Federal Confidentiality of Alcohol and Drug Abuse Patient Records regulations: The Federal rules restrict any use of the information to criminally investigate or prosecute any alcohol or drug abuse patient.[facility] CenterIn the event this information is protected by the Federal Confidentiality of Alcohol and Drug Abuse Patient Records regulations: The Federal rules restrict any use of the information to criminally investigate or prosecute any alcohol or drug abuse patient.[facility] CenterIn the event this information is protected by the Federal Confidentiality of Alcohol and Drug Abuse Patient Records regulations: The Federal rules restrict any use of the information to criminally investigate or prosecute any alcohol or drug abuse patient.[facility] CenterIn the event this information is protected by the Federal Confidentiality of Alcohol and Drug Abuse Patient Records regulations: The Federal rules restrict any use of the information to criminally investigate or prosecute any alcohol or drug abuse patient.[facility] CenterIn the event this information is protected by the Federal Confidentiality of Alcohol and Drug Abuse Patient Records regulations: The Federal rules restrict any use of the information to criminally investigate or prosecute any alcohol or drug abuse patient.[facility] CenterIn the event this information is protected by the Federal Confidentiality of Alcohol and Drug Abuse Patient Records regulations: The Federal rules restrict any use of the information to criminally investigate or prosecute any alcohol or drug abuse patient.[facility] CenterIn the event this information is protected by the Federal Confidentiality of Alcohol and Drug Abuse Patient Records regulations: The Federal rules restrict any use of the information to criminally investigate or prosecute any alcohol or drug abuse patient.[facility] CenterIn the event this information is protected by the Federal Confidentiality of Alcohol and Drug Abuse Patient Records regulations: The Federal rules restrict any use of the information to criminally investigate or prosecute any alcohol or drug abuse patient.[facility] CenterIn the event this information is protected by the Federal Confidentiality of Alcohol and Drug Abuse Patient Records regulations: The Federal rules restrict any use of the information to criminally investigate or prosecute any alcohol or drug abuse patient.[facility] CenterIn the event this information is protected by the Federal Confidentiality of Alcohol and Drug Abuse Patient Records regulations: The Federal rules restrict any use of the information to criminally investigate or prosecute any alcohol or drug abuse patient.[facility] CenterIn the event this information is protected by the Federal Confidentiality of Alcohol and Drug Abuse Patient Records regulations: The Federal rules restrict any use of the information to criminally investigate or prosecute any alcohol or drug abuse patient.[facility] CenterIn the event this information is protected by the Federal Confidentiality of Alcohol and Drug Abuse Patient Records regulations: The Federal rules restrict any use of the information to criminally investigate or prosecute any alcohol or drug abuse patient.[facility] CenterIn the event this information is protected by the Federal Confidentiality of Alcohol and Drug Abuse Patient Records regulations: The Federal rules restrict any use of the information to criminally investigate or prosecute any alcohol or drug abuse patient.[facility] CenterIn the event this information is protected by the Federal Confidentiality of Alcohol and Drug Abuse Patient Records regulations: The Federal rules restrict any use of the information to criminally investigate or prosecute any alcohol or drug abuse patient.[facility] CenterIn the event this information is protected by the Federal Confidentiality of Alcohol and Drug Abuse Patient Records regulations: The Federal rules restrict any use of the information to criminally investigate or prosecute any alcohol or drug abuse patient.[facility] CenterIn the event this information is protected by the Federal Confidentiality of Alcohol and Drug Abuse Patient Records regulations: The Federal rules restrict any use of the information to criminally investigate or prosecute any alcohol or drug abuse patient.[facility] CenterIn the event this information is protected by the Federal Confidentiality of Alcohol and Drug Abuse Patient Records regulations: The Federal rules restrict any use of the information to criminally investigate or prosecute any alcohol or drug abuse patient.[facility] CenterIn the event this information is protected by the Federal Confidentiality of Alcohol and Drug Abuse Patient Records regulations: The Federal rules restrict any use of the information to criminally investigate or prosecute any alcohol or drug abuse patient.[facility] CenterIn the event this information is protected by the Federal Confidentiality of Alcohol and Drug Abuse Patient Records regulations: The Federal rules restrict any use of the information to criminally investigate or prosecute any alcohol or drug abuse patient.[facility] CenterIn the event this information is protected by the Federal Confidentiality of Alcohol and Drug Abuse Patient Records regulations: The Federal rules restrict any use of the information to criminally investigate or prosecute any alcohol or drug abuse patient.[facility] CenterIn the event this information is protected by the Federal Confidentiality of Alcohol and Drug Abuse Patient Records regulations: The Federal rules restrict any use of the information to criminally investigate or prosecute any alcohol or drug abuse patient.[facility] CenterIn the event this information is protected by the Federal Confidentiality of Alcohol and Drug Abuse Patient Records regulations: The Federal rules restrict any use of the information to criminally investigate or prosecute any alcohol or drug abuse patient.[facility] CenterIn the event this information is protected by the Federal Confidentiality of Alcohol and Drug Abuse Patient Records regulations: The Federal rules restrict any use of the information to criminally investigate or prosecute any alcohol or drug abuse patient.[facility] CenterIn the event this information is protected by the Federal Confidentiality of Alcohol and Drug Abuse Patient Records regulations: The Federal rules restrict any use of the information to criminally investigate or prosecute any alcohol or drug abuse patient.[facility] CenterIn the event this information is protected by the Federal Confidentiality of Alcohol and Drug Abuse Patient Records regulations: The Federal rules restrict any use of the information to criminally investigate or prosecute any alcohol or drug abuse patient.[facility]In the event this information is protected by the Federal Confidentiality of Alcohol and Drug Abuse Patient Records regulations: The Federal rules restrict any use of the information to criminally investigate or prosecute any alcohol or drug abuse patient.[facility] CenterIn the event this information is protected by the Federal Confidentiality of Alcohol and Drug Abuse Patient Records regulations: The Federal rules restrict any use of the information to criminally investigate or prosecute any alcohol or drug abuse patient.[facility] CenterIn the event this information is protected by the Federal Confidentiality of Alcohol and Drug Abuse Patient Records regulations: The Federal rules restrict any use of the information to criminally investigate or prosecute any alcohol or drug abuse patient.[facility]In the event this information is protected by the Federal Confidentiality of Alcohol and Drug Abuse Patient Records regulations: The Federal rules restrict any use of the information to criminally investigate or prosecute any alcohol or drug abuse patient.[facility]In the event this information is protected by the Federal Confidentiality of Alcohol and Drug Abuse Patient Records regulations: The Federal rules restrict any use of the information to criminally investigate or prosecute any alcohol or drug abuse patient.[facility]In the event this information is protected by the Federal Confidentiality of Alcohol and Drug Abuse Patient Records regulations: The Federal rules restrict any use of the information to criminally investigate or prosecute any alcohol or drug abuse patient.[facility] CenterIn the event this information is protected by the Federal Confidentiality of Alcohol and Drug Abuse Patient Records regulations: The Federal rules restrict any use of the information to criminally investigate or prosecute any alcohol or drug abuse patient.[facility]In the event this information is protected by the Federal Confidentiality of Alcohol and Drug Abuse Patient Records regulations: The Federal rules restrict any use of the information to criminally investigate or prosecute any alcohol or drug abuse patient.[facility]In the event this information is protected by the Federal Confidentiality of Alcohol and Drug Abuse Patient Records regulations: The Federal rules restrict any use of the information to criminally investigate or prosecute any alcohol or drug abuse patient.[facility] CenterIn the event this information is protected by the Federal Confidentiality of Alcohol and Drug Abuse Patient Records regulations: The Federal rules restrict any use of the information to criminally investigate or prosecute any alcohol or drug abuse patient.[facility]In the event this information is protected by the Federal Confidentiality of Alcohol and Drug Abuse Patient Records regulations: The Federal rules restrict any use of the information to criminally investigate or prosecute any alcohol or drug abuse patient.[facility]In the event this information is protected by the Federal Confidentiality of Alcohol and Drug Abuse Patient Records regulations: The Federal rules restrict any use of the information to criminally investigate or prosecute any alcohol or drug abuse patient.[facility]In the event this information is protected by the Federal Confidentiality of Alcohol and Drug Abuse Patient Records regulations: The Federal rules restrict any use of the information to criminally investigate or prosecute any alcohol or drug abuse patient.[facility]In the event this information is protected by the Federal Confidentiality of Alcohol and Drug Abuse Patient Records regulations: The Federal rules restrict any use of the information to criminally investigate or prosecute any alcohol or drug abuse patient.[facility]In the event this information is protected by the Federal Confidentiality of Alcohol and Drug Abuse Patient Records regulations: The Federal rules restrict any use of the information to criminally investigate or prosecute any alcohol or drug abuse patient.[facility]In the event this information is protected by the Federal Confidentiality of Alcohol and Drug Abuse Patient Records regulations: The Federal rules restrict any use of the information to criminally investigate or prosecute any alcohol or drug abuse patient.[facility]In the event this information is protected by the Federal Confidentiality of Alcohol and Drug Abuse Patient Records regulations: The Federal rules restrict any use of the information to criminally investigate or prosecute any alcohol or drug abuse patient.[facility]In the event this information is protected by the Federal Confidentiality of Alcohol and Drug Abuse Patient Records regulations: The Federal rules restrict any use of the information to criminally investigate or prosecute any alcohol or drug abuse patient.[facility]In the event this information is protected by the Federal Confidentiality of Alcohol and Drug Abuse Patient Records regulations: The Federal rules restrict any use of the information to criminally investigate or prosecute any alcohol or drug abuse patient.[facility]In the event this information is protected by the Federal Confidentiality of Alcohol and Drug Abuse Patient Records regulations: The Federal rules restrict any use of the information to criminally investigate or prosecute any alcohol or drug abuse patient.[facility]In the event this information is protected by the Federal Confidentiality of Alcohol and Drug Abuse Patient Records regulations: The Federal rules restrict any use of the information to criminally investigate or prosecute any alcohol or drug abuse patient.[facility]In the event this information is protected by the Federal Confidentiality of Alcohol and Drug Abuse Patient Records regulations: The Federal rules restrict any use of the information to criminally investigate or prosecute any alcohol or drug abuse patient.[facility]In the event this information is protected by the Federal Confidentiality of Alcohol and Drug Abuse Patient Records regulations: The Federal rules restrict any use of the information to criminally investigate or prosecute any alcohol or drug abuse patient.[facility]In the event this information is protected by the Federal Confidentiality of Alcohol and Drug Abuse Patient Records regulations: The Federal rules restrict any use of the information to criminally investigate or prosecute any alcohol or drug abuse patient.[facility]In the event this information is protected by the Federal Confidentiality of Alcohol and Drug Abuse Patient Records regulations: The Federal rules restrict any use of the information to criminally investigate or prosecute any alcohol or drug abuse patient.[facility]In the event this information is protected by the Federal Confidentiality of Alcohol and Drug Abuse Patient Records regulations: The Federal rules restrict any use of the information to criminally investigate or prosecute any alcohol or drug abuse patient.[facility]In the event this information is protected by the Federal Confidentiality of Alcohol and Drug Abuse Patient Records regulations: The Federal rules restrict any use of the information to criminally investigate or prosecute any alcohol or drug abuse patient.[facility]In the event this information is protected by the Federal Confidentiality of Alcohol and Drug Abuse Patient Records regulations: The Federal rules restrict any use of the information to criminally investigate or prosecute any alcohol or drug abuse patient.[facility]In the event this information is protected by the Federal Confidentiality of Alcohol and Drug Abuse Patient Records regulations: The Federal rules restrict any use of the information to criminally investigate or prosecute any alcohol or drug abuse patient.[facility]In the event this information is protected by the Federal Confidentiality of Alcohol and Drug Abuse Patient Records regulations: The Federal rules restrict any use of the information to criminally investigate or prosecute any alcohol or drug abuse patient.[facility]In the event this information is protected by the Federal Confidentiality of Alcohol and Drug Abuse Patient Records regulations: The Federal rules restrict any use of the information to criminally investigate or prosecute any alcohol or drug abuse patient.[facility]In the event this information is protected by the Federal Confidentiality of Alcohol and Drug Abuse Patient Records regulations: The Federal rules restrict any use of the information to criminally investigate or prosecute any alcohol or drug abuse patient.[facility]In the event this information is protected by the Federal Confidentiality of Alcohol and Drug Abuse Patient Records regulations: The Federal rules restrict any use of the information to criminally investigate or prosecute any alcohol or drug abuse patient.[facility]In the event this information is protected by the Federal Confidentiality of Alcohol and Drug Abuse Patient Records regulations: The Federal rules restrict any use of the information to criminally investigate or prosecute any alcohol or drug abuse patient.[facility]In the event this information is protected by the Federal Confidentiality of Alcohol and Drug Abuse Patient Records regulations: The Federal rules restrict any use of the information to criminally investigate or prosecute any alcohol or drug abuse patient.[facility]In the event this information is protected by the Federal Confidentiality of Alcohol and Drug Abuse Patient Records regulations: The Federal rules restrict any use of the information to criminally investigate or prosecute any alcohol or drug abuse patient.[facility]In the event this information is protected by the Federal Confidentiality of Alcohol and Drug Abuse Patient Records regulations: The Federal rules restrict any use of the information to criminally investigate or prosecute any alcohol or drug abuse patient.[facility]In the event this information is protected by the Federal Confidentiality of Alcohol and Drug Abuse Patient Records regulations: The Federal rules restrict any use of the information to criminally investigate or prosecute any alcohol or drug abuse patient.[facility]In the event this information is protected by the Federal Confidentiality of Alcohol and Drug Abuse Patient Records regulations: The Federal rules restrict any use of the information to criminally investigate or prosecute any alcohol or drug abuse patient.[facility]In the event this information is protected by the Federal Confidentiality of Alcohol and Drug Abuse Patient Records regulations: The Federal rules restrict any use of the information to criminally investigate or prosecute any alcohol or drug abuse patient.[facility]In the event this information is protected by the Federal Confidentiality of Alcohol and Drug Abuse Patient Records regulations: The Federal rules restrict any use of the information to criminally investigate or prosecute any alcohol or drug abuse patient.[facility]In the event this information is protected by the Federal Confidentiality of Alcohol and Drug Abuse Patient Records regulations: The Federal rules restrict any use of the information to criminally investigate or prosecute any alcohol or drug abuse patient.[facility]In the event this information is protected by the Federal Confidentiality of Alcohol and Drug Abuse Patient Records regulations: The Federal rules restrict any use of the information to criminally investigate or prosecute any alcohol or drug abuse patient.[facility]In the event this information is protected by the Federal Confidentiality of Alcohol and Drug Abuse Patient Records regulations: The Federal rules restrict any use of the information to criminally investigate or prosecute any alcohol or drug abuse patient.[facility]In the event this information is protected by the Federal Confidentiality of Alcohol and Drug Abuse Patient Records regulations: The Federal rules restrict any use of the information to criminally investigate or prosecute any alcohol or drug abuse patient.[facility]In the event this information is protected by the Federal Confidentiality of Alcohol and Drug Abuse Patient Records regulations: The Federal rules restrict any use of the information to criminally investigate or prosecute any alcohol or drug abuse patient.[facility]In the event this information is protected by the Federal Confidentiality of Alcohol and Drug Abuse Patient Records regulations: The Federal rules restrict any use of the information to criminally investigate or prosecute any alcohol or drug abuse patient.[facility]In the event this information is protected by the Federal Confidentiality of Alcohol and Drug Abuse Patient Records regulations: The Federal rules restrict any use of the information to criminally investigate or prosecute any alcohol or drug abuse patient.[facility]In the event this information is protected by the Federal Confidentiality of Alcohol and Drug Abuse Patient Records regulations: The Federal rules restrict any use of the information to criminally investigate or prosecute any alcohol or drug abuse patient.[facility]In the event this information is protected by the Federal Confidentiality of Alcohol and Drug Abuse Patient Records regulations: The Federal rules restrict any use of the information to criminally investigate or prosecute any alcohol or drug abuse patient.[facility]In the event this information is protected by the Federal Confidentiality of Alcohol and Drug Abuse Patient Records regulations: The Federal rules restrict any use of the information to criminally investigate or prosecute any alcohol or drug abuse patient.[facility]In the event this information is protected by the Federal Confidentiality of Alcohol and Drug Abuse Patient Records regulations: The Federal rules restrict any use of the information to criminally investigate or prosecute any alcohol or drug abuse patient.[facility]In the event this information is protected by the Federal Confidentiality of Alcohol and Drug Abuse Patient Records regulations: The Federal rules restrict any use of the information to criminally investigate or prosecute any alcohol or drug abuse patient.[facility]In the event this information is protected by the Federal Confidentiality of Alcohol and Drug Abuse Patient Records regulations: The Federal rules restrict any use of the information to criminally investigate or prosecute any alcohol or drug abuse patient.[facility]In the event this information is protected by the Federal Confidentiality of Alcohol and Drug Abuse Patient Records regulations: The Federal rules restrict any use of the information to criminally investigate or prosecute any alcohol or drug abuse patient.[facility]In the event this information is protected by the Federal Confidentiality of Alcohol and Drug Abuse Patient Records regulations: The Federal rules restrict any use of the information to criminally investigate or prosecute any alcohol or drug abuse patient.[facility]In the event this information is protected by the Federal Confidentiality of Alcohol and Drug Abuse Patient Records regulations: The Federal rules restrict any use of the information to criminally investigate or prosecute any alcohol or drug abuse patient.[facility]In the event this information is protected by the Federal Confidentiality of Alcohol and Drug Abuse Patient Records regulations: The Federal rules restrict any use of the information to criminally investigate or prosecute any alcohol or drug abuse patient.[facility]In the event this information is protected by the Federal Confidentiality of Alcohol and Drug Abuse Patient Records regulations: The Federal rules restrict any use of the information to criminally investigate or prosecute any alcohol or drug abuse patient.[facility]In the event this information is protected by the Federal Confidentiality of Alcohol and Drug Abuse Patient Records regulations: The Federal rules restrict any use of the information to criminally investigate or prosecute any alcohol or drug abuse patient.[facility]In the event this information is protected by the Federal Confidentiality of Alcohol and Drug Abuse Patient Records regulations: The Federal rules restrict any use of the information to criminally investigate or prosecute any alcohol or drug abuse patient.[facility]In the event this information is protected by the Federal Confidentiality of Alcohol and Drug Abuse Patient Records regulations: The Federal rules restrict any use of the information to criminally investigate or prosecute any alcohol or drug abuse patient.[facility]In the event this information is protected by the Federal Confidentiality of Alcohol and Drug Abuse Patient Records regulations: The Federal rules restrict any use of the information to criminally investigate or prosecute any alcohol or drug abuse patient.[facility]In the event this information is protected by the Federal Confidentiality of Alcohol and Drug Abuse Patient Records regulations: The Federal rules restrict any use of the information to criminally investigate or prosecute any alcohol or drug abuse patient.[facility]In the event this information is protected by the Federal Confidentiality of Alcohol and Drug Abuse Patient Records regulations: The Federal rules restrict any use of the information to criminally investigate or prosecute any alcohol or drug abuse patient.[facility]In the event this information is protected by the Federal Confidentiality of Alcohol and Drug Abuse Patient Records regulations: The Federal rules restrict any use of the information to criminally investigate or prosecute any alcohol or drug abuse patient.[facility]In the event this information is protected by the Federal Confidentiality of Alcohol and Drug Abuse Patient Records regulations: The Federal rules restrict any use of the information to criminally investigate or prosecute any alcohol or drug abuse patient.[facility]In the event this information is protected by the Federal Confidentiality of Alcohol and Drug Abuse Patient Records regulations: The Federal rules restrict any use of the information to criminally investigate or prosecute any alcohol or drug abuse patient.[facility]In the event this information is protected by the Federal Confidentiality of Alcohol and Drug Abuse Patient Records regulations: The Federal rules restrict any use of the information to criminally investigate or prosecute any alcohol or drug abuse patient.[facility]In the event this information is protected by the Federal Confidentiality of Alcohol and Drug Abuse Patient Records regulations: The Federal rules restrict any use of the information to criminally investigate or prosecute any alcohol or drug abuse patient.[facility]In the event this information is protected by the Federal Confidentiality of Alcohol and Drug Abuse Patient Records regulations: The Federal rules restrict any use of the information to criminally investigate or prosecute any alcohol or drug abuse patient.[facility]In the event this information is protected by the Federal Confidentiality of Alcohol and Drug Abuse Patient Records regulations: The Federal rules restrict any use of the information to criminally investigate or prosecute any alcohol or drug abuse patient.[facility]In the event this information is protected by the Federal Confidentiality of Alcohol and Drug Abuse Patient Records regulations: The Federal rules restrict any use of the information to criminally investigate or prosecute any alcohol or drug abuse patient.[facility]In the event this information is protected by the Federal Confidentiality of Alcohol and Drug Abuse Patient Records regulations: The Federal rules restrict any use of the information to criminally investigate or prosecute any alcohol or drug abuse patient.[facility]In the event this information is protected by the Federal Confidentiality of Alcohol and Drug Abuse Patient Records regulations: The Federal rules restrict any use of the information to criminally investigate or prosecute any alcohol or drug abuse patient.[facility] CenterIn the event this information is protected by the Federal Confidentiality of Alcohol and Drug Abuse Patient Records regulations: The Federal rules restrict any use of the information to criminally investigate or prosecute any alcohol or drug abuse patient.[facility] CenterIn the event this information is protected by the Federal Confidentiality of Alcohol and Drug Abuse Patient Records regulations: The Federal rules restrict any use of the information to criminally investigate or prosecute any alcohol or drug abuse patient.[facility] CenterIn the event this information is protected by the Federal Confidentiality of Alcohol and Drug Abuse Patient Records regulations: The Federal rules restrict any use of the information to criminally investigate or prosecute any alcohol or drug abuse patient.[facility] CenterIn the event this information is protected by the Federal Confidentiality of Alcohol and Drug Abuse Patient Records regulations: The Federal rules restrict any use of the information to criminally investigate or prosecute any alcohol or drug abuse patient.[facility] CenterIn the event this information is protected by the Federal Confidentiality of Alcohol and Drug Abuse Patient Records regulations: The Federal rules restrict any use of the information to criminally investigate or prosecute any alcohol or drug abuse patient.[facility] CenterIn the event this information is protected by the Federal Confidentiality of Alcohol and Drug Abuse Patient Records regulations: The Federal rules restrict any use of the information to criminally investigate or prosecute any alcohol or drug abuse patient.[facility] CenterIn the event this information is protected by the Federal Confidentiality of Alcohol and Drug Abuse Patient Records regulations: The Federal rules restrict any use of the information to criminally investigate or prosecute any alcohol or drug abuse patient.[facility] CenterIn the event this information is protected by the Federal Confidentiality of Alcohol and Drug Abuse Patient Records regulations: The Federal rules restrict any use of the information to criminally investigate or prosecute any alcohol or drug abuse patient.[facility] CenterIn the event this information is protected by the Federal Confidentiality of Alcohol and Drug Abuse Patient Records regulations: The Federal rules restrict any use of the information to criminally investigate or prosecute any alcohol or drug abuse patient.[facility] CenterIn the event this information is protected by the Federal Confidentiality of Alcohol and Drug Abuse Patient Records regulations: The Federal rules restrict any use of the information to criminally investigate or prosecute any alcohol or drug abuse patient.[facility] CenterIn the event this information is protected by the Federal Confidentiality of Alcohol and Drug Abuse Patient Records regulations: The Federal rules restrict any use of the information to criminally investigate or prosecute any alcohol or drug abuse patient.[facility] CenterIn the event this information is protected by the Federal Confidentiality of Alcohol and Drug Abuse Patient Records regulations: The Federal rules restrict any use of the information to criminally investigate or prosecute any alcohol or drug abuse patient.[facility] CenterIn the event this information is protected by the Federal Confidentiality of Alcohol and Drug Abuse Patient Records regulations: The Federal rules restrict any use of the information to criminally investigate or prosecute any alcohol or drug abuse patient.[facility] CenterIn the event this information is protected by the Federal Confidentiality of Alcohol and Drug Abuse Patient Records regulations: The Federal rules restrict any use of the information to criminally investigate or prosecute any alcohol or drug abuse patient.[facility] CenterIn the event this information is protected by the Federal Confidentiality of Alcohol and Drug Abuse Patient Records regulations: The Federal rules restrict any use of the information to criminally investigate or prosecute any alcohol or drug abuse patient.[facility] CenterIn the event this information is protected by the Federal Confidentiality of Alcohol and Drug Abuse Patient Records regulations: The Federal rules restrict any use of the information to criminally investigate or prosecute any alcohol or drug abuse patient.[facility] CenterIn the event this information is protected by the Federal Confidentiality of Alcohol and Drug Abuse Patient Records regulations: The Federal rules restrict any use of the information to criminally investigate or prosecute any alcohol or drug abuse patient.[facility] CenterIn the event this information is protected by the Federal Confidentiality of Alcohol and Drug Abuse Patient Records regulations: The Federal rules restrict any use of the information to criminally investigate or prosecute any alcohol or drug abuse patient.[facility] CenterIn the event this information is protected by the Federal Confidentiality of Alcohol and Drug Abuse Patient Records regulations: The Federal rules restrict any use of the information to criminally investigate or prosecute any alcohol or drug abuse patient.[facility] CenterIn the event this information is protected by the Federal Confidentiality of Alcohol and Drug Abuse Patient Records regulations: The Federal rules restrict any use of the information to criminally investigate or prosecute any alcohol or drug abuse patient.[facility] CenterIn the event this information is protected by the Federal Confidentiality of Alcohol and Drug Abuse Patient Records regulations: The Federal rules restrict any use of the information to criminally investigate or prosecute any alcohol or drug abuse patient.[facility] CenterIn the event this information is protected by the Federal Confidentiality of Alcohol and Drug Abuse Patient Records regulations: The Federal rules restrict any use of the information to criminally investigate or prosecute any alcohol or drug abuse patient.[facility] CenterIn the event this information is protected by the Federal Confidentiality of Alcohol and Drug Abuse Patient Records regulations: The Federal rules restrict any use of the information to criminally investigate or prosecute any alcohol or drug abuse patient.[facility] CenterIn the event this information is protected by the Federal Confidentiality of Alcohol and Drug Abuse Patient Records regulations: The Federal rules restrict any use of the information to criminally investigate or prosecute any alcohol or drug abuse patient.[facility] CenterIn the event this information is protected by the Federal Confidentiality of Alcohol and Drug Abuse Patient Records regulations: The Federal rules restrict any use of the information to criminally investigate or prosecute any alcohol or drug abuse patient.[facility] CenterIn the event this information is protected by the Federal Confidentiality of Alcohol and Drug Abuse Patient Records regulations: The Federal rules restrict any use of the information to criminally investigate or prosecute any alcohol or drug abuse patient.[facility] CenterIn the event this information is protected by the Federal Confidentiality of Alcohol and Drug Abuse Patient Records regulations: The Federal rules restrict any use of the information to criminally investigate or prosecute any alcohol or drug abuse patient.[facility] CenterIn the event this information is protected by the Federal Confidentiality of Alcohol and Drug Abuse Patient Records regulations: The Federal rules restrict any use of the information to criminally investigate or prosecute any alcohol or drug abuse patient.[facility] CenterIn the event this information is protected by the Federal Confidentiality of Alcohol and Drug Abuse Patient Records regulations: The Federal rules restrict any use of the information to criminally investigate or prosecute any alcohol or drug abuse patient.[facility] CenterIn the event this information is protected by the Federal Confidentiality of Alcohol and Drug Abuse Patient Records regulations: The Federal rules restrict any use of the information to criminally investigate or prosecute any alcohol or drug abuse patient.[facility] CenterIn the event this information is protected by the Federal Confidentiality of Alcohol and Drug Abuse Patient Records regulations: The Federal rules restrict any use of the information to criminally investigate or prosecute any alcohol or drug abuse patient.[facility] CenterIn the event this information is protected by the Federal Confidentiality of Alcohol and Drug Abuse Patient Records regulations: The Federal rules restrict any use of the information to criminally investigate or prosecute any alcohol or drug abuse patient.[facility] CenterIn the event this information is protected by the Federal Confidentiality of Alcohol and Drug Abuse Patient Records regulations: The Federal rules restrict any use of the information to criminally investigate or prosecute any alcohol or drug abuse patient.[facility] CenterIn the event this information is protected by the Federal Confidentiality of Alcohol and Drug Abuse Patient Records regulations: The Federal rules restrict any use of the information to criminally investigate or prosecute any alcohol or drug abuse patient.[facility] CenterIn the event this information is protected by the Federal Confidentiality of Alcohol and Drug Abuse Patient Records regulations: The Federal rules restrict any use of the information to criminally investigate or prosecute any alcohol or drug abuse patient.[facility] CenterIn the event this information is protected by the Federal Confidentiality of Alcohol and Drug Abuse Patient Records regulations: The Federal rules restrict any use of the information to criminally investigate or prosecute any alcohol or drug abuse patient.[facility] CenterIn the event this information is protected by the Federal Confidentiality of Alcohol and Drug Abuse Patient Records regulations: The Federal rules restrict any use of the information to criminally investigate or prosecute any alcohol or drug abuse patient.[facility] CenterIn the event this information is protected by the Federal Confidentiality of Alcohol and Drug Abuse Patient Records regulations: The Federal rules restrict any use of the information to criminally investigate or prosecute any alcohol or drug abuse patient.[facility] CenterIn the event this information is protected by the Federal Confidentiality of Alcohol and Drug Abuse Patient Records regulations: The Federal rules restrict any use of the information to criminally investigate or prosecute any alcohol or drug abuse patient.[facility] CenterIn the event this information is protected by the Federal Confidentiality of Alcohol and Drug Abuse Patient Records regulations: The Federal rules restrict any use of the information to criminally investigate or prosecute any alcohol or drug abuse patient.[facility] CenterIn the event this information is protected by the Federal Confidentiality of Alcohol and Drug Abuse Patient Records regulations: The Federal rules restrict any use of the information to criminally investigate or prosecute any alcohol or drug abuse patient.[facility] CenterIn the event this information is protected by the Federal Confidentiality of Alcohol and Drug Abuse Patient Records regulations: The Federal rules restrict any use of the information to criminally investigate or prosecute any alcohol or drug abuse patient.[facility] CenterIn the event this information is protected by the Federal Confidentiality of Alcohol and Drug Abuse Patient Records regulations: The Federal rules restrict any use of the information to criminally investigate or prosecute any alcohol or drug abuse patient.[facility] CenterIn the event this information is protected by the Federal Confidentiality of Alcohol and Drug Abuse Patient Records regulations: The Federal rules restrict any use of the information to criminally investigate or prosecute any alcohol or drug abuse patient.[facility] CenterIn the event this information is protected by the Federal Confidentiality of Alcohol and Drug Abuse Patient Records regulations: The Federal rules restrict any use of the information to criminally investigate or prosecute any alcohol or drug abuse patient.[facility] CenterIn the event this information is protected by the Federal Confidentiality of Alcohol and Drug Abuse Patient Records regulations: The Federal rules restrict any use of the information to criminally investigate or prosecute any alcohol or drug abuse patient.[facility] CenterIn the event this information is protected by the Federal Confidentiality of Alcohol and Drug Abuse Patient Records regulations: The Federal rules restrict any use of the information to criminally investigate or prosecute any alcohol or drug abuse patient.[facility] CenterIn the event this information is protected by the Federal Confidentiality of Alcohol and Drug Abuse Patient Records regulations: The Federal rules restrict any use of the information to criminally investigate or prosecute any alcohol or drug abuse patient.[facility] CenterIn the event this information is protected by the Federal Confidentiality of Alcohol and Drug Abuse Patient Records regulations: The Federal rules restrict any use of the information to criminally investigate or prosecute any alcohol or drug abuse patient.[facility] CenterIn the event this information is protected by the Federal Confidentiality of Alcohol and Drug Abuse Patient Records regulations: The Federal rules restrict any use of the information to criminally investigate or prosecute any alcohol or drug abuse patient.[facility] CenterIn the event this information is protected by the Federal Confidentiality of Alcohol and Drug Abuse Patient Records regulations: The Federal rules restrict any use of the information to criminally investigate or prosecute any alcohol or drug abuse patient.[facility] CenterIn the event this information is protected by the Federal Confidentiality of Alcohol and Drug Abuse Patient Records regulations: The Federal rules restrict any use of the information to criminally investigate or prosecute any alcohol or drug abuse patient.[facility] CenterIn the event this information is protected by the Federal Confidentiality of Alcohol and Drug Abuse Patient Records regulations: The Federal rules restrict any use of the information to criminally investigate or prosecute any alcohol or drug abuse patient.[facility] CenterIn the event this information is protected by the Federal Confidentiality of Alcohol and Drug Abuse Patient Records regulations: The Federal rules restrict any use of the information to criminally investigate or prosecute any alcohol or drug abuse patient.[facility] CenterIn the event this information is protected by the Federal Confidentiality of Alcohol and Drug Abuse Patient Records regulations: The Federal rules restrict any use of the information to criminally investigate or prosecute any alcohol or drug abuse patient.[facility] CenterIn the event this information is protected by the Federal Confidentiality of Alcohol and Drug Abuse Patient Records regulations: The Federal rules restrict any use of the information to criminally investigate or prosecute any alcohol or drug abuse patient.[facility] CenterIn the event this information is protected by the Federal Confidentiality of Alcohol and Drug Abuse Patient Records regulations: The Federal rules restrict any use of the information to criminally investigate or prosecute any alcohol or drug abuse patient.[facility] CenterIn the event this information is protected by the Federal Confidentiality of Alcohol and Drug Abuse Patient Records regulations: The Federal rules restrict any use of the information to criminally investigate or prosecute any alcohol or drug abuse patient.[facility] CenterIn the event this information is protected by the Federal Confidentiality of Alcohol and Drug Abuse Patient Records regulations: The Federal rules restrict any use of the information to criminally investigate or prosecute any alcohol or drug abuse patient.[facility] CenterIn the event this information is protected by the Federal Confidentiality of Alcohol and Drug Abuse Patient Records regulations: The Federal rules restrict any use of the information to criminally investigate or prosecute any alcohol or drug abuse patient.[facility] Reason for Visit (unrecogniz ed section and content) Reason Comments Consult Specialty Diagnoses / Procedures Referred By Contac t Referred To Contact Diagnoses Anal squamous cell carcinoma (HCC) Procedures CONSULT TO HEMATOLOGY/ONCOLOGY OFFICE/OUTPATIENT NEW HIGH MDM 60-74 MINUTES Ramiro Cheung MD [address] [place] [address] Referral ID Status Reason Start Date Expiration Date V isits Requested Visits Authorized [id number] Closed PCP Requested Referral 05/22/2021 05/22/2022 1 1 Reason Comments Consult Specialty Diagnoses / Procedures Referred By Contac t Referred To Contact Radiation Oncology Diagnoses Anal squamous cell carcinoma (HCC) Procedures RAD/ONC CONSULT OFFICE/OUTPATIENT NEW HIGH MDM 60-74 MINUTES Ramiro Cheung MD [address] [place] [id number] Referral ID Status Reason Start Date Expiration Date V isits Requested Visits Authorized [id number] Closed PCP Requested Referral 05/22/2021 05/22/2022 1 1 Reason Onset Date Comments SPP Oral Oncology/hematology - Treatment Referral 05/30/2021 Capecitabine 500mg & 150mg Reason Onset Date Comments SPP Oral Oncology/hematology - Treatment Referra l 06/02/2021 Capecitabine 500mg Reason Onset Date Comments Refill Request 06/03/2021 Reason Comments Consult Simulation Request Form Patient Education radiation education Reason Comments Erroneous encounter-disregard Reason Comments New Patient Specialty Diagnoses / Procedures Referred By Contac t Referred To Contact Oncology Diagnoses Rectal malignant neoplasm (HCC) Procedures CONSULT TO ONCOLOGY OFFICE/OUTPATIENT NEW HIGH [facility] 60-74 MINUTES Caty Bowens MD [address] [place] [address] Referral ID Status Reason Start Date Expiration Date V isits Requested Visits Authorized [id number] Closed PCP Requested Referral 06/05/2021 05/29/2022 1 1 Reason Comments Follow Up Reason Comments Patient Question Reason Comments Benefits Investigation Reason Comments Blood Draw (CVAD) Reason Comments Radiotherapy On-treatment Visit Reason Comments Personal Care Service Provider - Other Follow-up Reason Comments Established Patient Reason Onset Date Comments SPP Oral Oncology/hematology - Medication Refill 07/01/2021 Capecitabine x 2 Reason Onset Date Comments Refill Request 07/01/2021 Reason Comments Orders Reason Comments burning on urination Reason Comments Future Appointment Reason Comments Established Patient Reason Comments Patient Education Reason Comments Refill Request capecitabine Reason Comments Recheck Reason Comments Radiology MRI Specialty Diagnoses / Procedures Referred By Contac t Referred To Contact MR IMAGING Diagnoses Rectal malignant neoplasm (HCC) Anal squamous cell carcinoma (HCC) Procedures MRI RECTUM WO/W IVCON MRI PELVIS W/O & W/CONTRAST MATERIAL Alexia Rao APRN.[employer] [address] [place] [address] Mr Imaging Referral ID Status Reason Start Date Expiration Date V isits Requested Visits Authorized [id number] Closed Auto-Generate d Referral 07/18/2021 08/17/2022 1 1 Reason Comments Care Coordination Reason Comments Established Patient Flex sig Reason Comments Pre-Op Visit Reason Comments Radiology CT Specialty Diagnoses / Procedures Referred By Contac t Referred To Contact CT IMAGING Diagnoses Rectal cancer (HCC) Malignant neoplasm of rectum (HCC) Procedures CT ABD/PEL W IVCON CT ABD & PELVIS W/CONTRAST Ramiro Cheung MD [address] [place] [address] Ct Imaging Referral ID Status Reason Start Date Expiration Date V isits Requested Visits Authorized [id number] Closed Auto-Generate d Referral 12/17/2021 01/16/2023 1 1 Reason Comments PACC Reason Comments Pre-Op Update Reason Comments Home Care Confirmation Call Reason Comments Critical Care Transport Reason Comments Home Care MD to follow Reason Comments Chest Pain Reason Comments Home Care MD to follow Reason Comments Home Care Pt confirmation call Reason Comments Home Care Notification of hosp italization. Reason Comments Hospital F/U Reason Comments Established Patient PE and DVT Reason Comments Post Op Reason Comments Home Care Pt express he has no deyanira over the past week occasional bright red blood noted when he wipes his rectum. He states it is a small amount and it comes and goes but has been steady for the past few days. He express he is gently wipes. No pain noted when wiping, but he does have occasional intermittent stabbing pain "around his rectum". He is scheduled to see hid PCP on Apr 07. In 24 hours he has noted an occasional sharp, stabbing pain random spots in his head. Reason Comments Personal Care Service Provider - Other Reason Comments Home Care Need for home care S N EVAL for ostomy teaching and care. Reason Comments Establish Care Rectal Bleeding rectal cancer Reason Comments Critical Results Reason Comments Patient Update Reason Comments Home Care Notification of home health agency discharge. Reason Comments Anesthesia Consult Preop evaluation Reason Comments Pre Op Reason Comments Established Patient Pre-Op clearance; an ticoagulation management Reason Comments Radio GI Main HB6 Specialty Diagnoses / Procedures Referred By Contac t Referred To Contact XR IMAGING Diagnoses 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) Preoperative examination Procedures XR COLON SINGLE CONTRAST RADIOLOGIC EXAM COLON SINGLE CONTRAST STUDY Ramiro Cheung MD [address] [place] [address] Xr Imaging Referral ID Status Reason Start Date Expiration Date V isits Requested Visits Authorized [id number] Closed Auto-Generate d Referral 04/01/2022 05/01/2023 1 1 Reason Comments follow up low bp Reason Comments Jury duty letter Reason Comments Appointment Reason Comments need office notes changed Reason Comments Anticoagulation Reason Comments Orders protime Reason Comments Patient Question Reason Comments Follow Up history of PE Reason Comments Radiology Pre Procedure Instructions Reason Comments Refill Request Specialty Diagnoses / Procedures Referred By Karen lira Referred To Contact Radiology Diagnoses Acoustic neuroma (CMS/HCC) Procedures MR IAC w [place] [address] Department [place] [address] Referral ID Status Reason Start Date Expiration Date Visits Requested Visits Authorized [id number] Pending Review Perform Procedure 03/05/2023 03/04/2024 1 1 Reason Comments Toe Pain (Big) left great toe, ? in grown toenail x 1 week Reason Comments New Pain Reason Comments New Patient Evaluation for secon d opinion for ongoing rectal bleeding since sx, s/p - robotic asst lap LAR w/ intraoperative angiogram w/ diverting loop ileostomy 01/27/[address] Cheung h/o of rectal squamos cell cancer diagnosed in 04/2021, h/o of chemothearpy OTHER Pt accompanied by wi fe Reason Comments Rectal Cancer Reason Comments Schedule Surgery Reason Comments Pre-Op Exam Specialty Diagnoses / Procedures Referred By Karen lira Referred To Contact Diagnoses History of rectal cancer Procedures REFER TO PACC - PRE ANESTHESIA CONSULTATION CLINIC OFFICE/OUTPATIENT NEW HIGH MDM 60 MINUTES Ramiro Cheung MD [address] [place] [address] Referral ID Status Reason Start Date Expiration Date V isits Requested Visits Authorized [id number] Closed PCP Requested Referral 08/03/2023 08/02/2024 1 1 Reason Comments Radiology MRI Specialty Diagnoses / Procedures Referred By Karen lira Referred To Contact MR IMAGING Diagnoses History of rectal cancer Procedures MRI RECTUM WO/W IVCON MRI PELVIS W/O & W/CONTRAST MATERIAL Ramiro Cheung MD [address] [place] [address] [place] [address] Referral ID Status Reason Start Date Expiration Date V isits Requested Visits Authorized [id number] Closed Auto-Generate d Referral 08/03/2023 09/01/2024 1 1 Reason Onset Date Comments Refill Request 10/22/2023 Reason Comments Patient Question left shoulder pain 1 0/10 Reason Comments Pain (Shoulder Pain) lefthas been to PT at [facility] per Dr. Siddiqui but did not help.MRI is scheduled 12/09/23 through [facility] Reason Comments Pre-Op Exam ACDF of C5-[address] Mohan Siddiqui Reason Onset Date Comments Population Health Navigation Outreach 02/18/2024 ACO [facility]A Reason Comments Hospital F/U Pain bilateral legs Reason Comments Derm Problem ulcer near stoma for about 2 week has noted that it has enlarged since last bag change and very sore Reason Comments Pain upper left back on g oing for about 3 week and no change in intensity Care Teams (unrecognized sec tion and content) Shampoo Person Relationship Specialty Start Date End Date Pcp, No PCP - General 04/29/21 11/28/21 Caty Bowens MD [address] [place] [address] Hematology/Oncology 05/29/21 Shampoo Person Relationship Specialty Start Date End Date Pcp, No PCP - General 04/29/21 11/28/21 Caty Bowens MD [address] [place] [address] Hematology/Oncology 05/29/21 Shampoo Person Relationship Specialty Start Date End Date Pcp, No PCP - General 04/29/21 11/28/21 Caty Bowens MD [address] [place] [address] Hematology/Oncology 05/29/21 Marisela Rome MD, [address] [place], [place] [phone] Physician Radiation Oncology 05/30/21 Shampoo Person Relationship Specialty Start Date End Date Pcp, No PCP - General 04/29/21 11/28/21 Caty Bowens MD [address] [place] [address] Hematology/Oncology 05/29/21 Marisela Rome MD, [address] [place], [place] [phone] Physician Radiation Oncology 05/30/21 Shampoo Person Relationship Specialty Start Date End Date Pcp, No PCP - General 04/29/21 11/28/21 Caty Bowens MD [address] [place] [address] Hematology/Oncology 05/29/21 Marisela Rome MD, [address] [place], [place] [phone] Physician Radiation Oncology 05/30/21 Shampoo Person Relationship Specialty Start Date End Date Pcp, No PCP - General 04/29/21 11/28/21 Caty Bowens MD [address] [place] [address] Hematology/Oncology 05/29/21 Marisela Rome MD, [address] [place], [place] [address] [phone] Physician Radiation Oncology 05/30/21 Amelia Souza, RN Specialty Personal Care Service Provider Oncology 06/04/21 Shampoo Person Relationship Specialty Start Date End Date Pcp, No PCP - General 04/29/21 11/28/21 Caty Bowens MD [address] [place] [address] Hematology/Oncology 05/29/21 Marisela Rome MD, [address] [place] [address] Physician Radiation Oncology 05/30/21 Shampoo Person Relationship Specialty Start Date End Date Pcp, No PCP - General 04/29/21 11/28/21 Caty Bowens MD [address] [place], [place] [phone] Hematology/Oncology 05/29/21 Marisela Rome MD, [address] [place] [address] Physician Radiation Oncology 05/30/21 Amelia Souza RN Specialty Personal Care Service Provider Oncology 06/04/21 Shampoo Person Relationship Specialty Start Date End Date Pcp, No PCP - General 04/29/21 11/28/21 Caty Bowens MD [address] [place] [address] Hematology/Oncology 05/29/21 Marisela Rome MD, [address] [place] [address] Physician Radiation Oncology 05/30/21 Amelia Souza RN Specialty Personal Care Service Provider Oncology 06/04/21 Shampoo Person Relationship Specialty Start Date End Date Pcp, No PCP - General 04/29/21 11/28/21 Caty Bowens MD [address] [place] [address] Hematology/Oncology 05/29/21 Marisela Rome MD, [address] [place] [address] Physician Radiation Oncology 05/30/21 Amelia Souza RN Specialty Personal Care Service Provider Oncology 06/04/21 Shampoo Person Relationship Specialty Start Date End Date Pcp, No PCP - General 04/29/21 11/28/21 Caty Bowens MD [address] [place], [place] [phone] Hematology/Oncology 05/29/21 Marisela Rome MD, [address] [facility] [place] [phone] Physician Radiation Oncology 05/30/21 Amelia Souza RN Specialty Personal Care Service Provider Oncology 06/04/21 Shampoo Person Relationship Specialty Start Date End Date Pcp, No PCP - General 04/29/21 11/28/21 Caty Bowens MD [address] [place] [address] Hematology/Oncology 05/29/21 Marisela Rome MD, [address] [facility] [place] [address] Physician Radiation Oncology 05/30/21 Amelia Souza RN Specialty Personal Care Service Provider Oncology 06/04/21 Shampoo Person Relationship Specialty Start Date End Date Pcp, No PCP - General 04/29/21 11/28/21 Caty Bowens MD [address] [place] [address] Hematology/Oncology 05/29/21 Marisela Rome MD, [address] [place] [address] Physician Radiation Oncology 05/30/21 Amelia Souza RN Specialty Personal Care Service Provider Oncology 06/04/21 Shampoo Person Relationship Specialty Start Date End Date Pcp, No PCP - General 04/29/21 11/28/21 Caty Bowens MD [address] [place], [place] [phone] Hematology/Oncology 05/29/21 Marisela Rome MD, [address] [place] [place] [id number] [phone] Physician Radiation Oncology 05/30/21 Amelia Souza RN Specialty Personal Care Service Provider Oncology 06/04/21 Shampoo Person Relationship Specialty Start Date End Date Pcp, No PCP - General 04/29/21 11/28/21 Caty Bowens MD [address] [place], [place] [address] Hematology/Oncology 05/29/21 Marisela Rome MD, MD [address] [place] [address] Physician Radiation Oncology 05/30/21 Amelia Souza RN Specialty Personal Care Service Provider Oncology 06/04/21 Shampoo Person Relationship Specialty Start Date End Date Pcp, No PCP - General 04/29/21 11/28/21 Caty Bowens MD [address] [place] [address] Hematology/Oncology 05/29/21 Marisela Rome MD, [address] [place] [address] Physician Radiation Oncology 05/30/21 Amelia Souza RN Specialty Personal Care Service Provider Oncology 06/04/21 Shampoo Person Relationship Specialty Start Date End Date Pcp, No PCP - General 04/29/21 11/28/21 Caty Bowens MD [address] [place] [address] Hematology/Oncology 05/29/21 Marisela Rome MD, [address] [place] [address] Physician Radiation Oncology 05/30/21 Amelia Souza RN Specialty Personal Care Service Provider Oncology 06/04/21 Shampoo Person Relationship Specialty Start Date End Date Pcp, No PCP - General 04/29/21 11/28/21 Caty Bowens MD [address] [place] [address] Hematology/Oncology 05/29/21 Marisela Rome MD, [address] [place], [place] [id number] [phone] Physician Radiation Oncology 05/30/21 Amelia Souza RN Specialty Personal Care Service Provider Oncology 06/04/21 Shampoo Person Relationship Specialty Start Date End Date Pcp, No PCP - General 04/29/21 11/28/21 Caty Bowens MD [address] [place] [address] Hematology/Oncology 05/29/21 Marisela Rome MD, [address] [place], [place] [phone] Physician Radiation Oncology 05/30/21 Amelia Souza RN Specialty Personal Care Service Provider Oncology 06/04/21 Shampoo Person Relationship Specialty Start Date End Date Pcp, No PCP - General 04/29/21 11/28/21 Caty Bowens MD [address] [place] [address] Hematology/Oncology 05/29/21 Marisela Rome MD, [address] [place] [address] Physician Radiation Oncology 05/30/21 Amelia Souza RN Specialty Personal Care Service Provider Oncology 06/04/21 Shampoo Person Relationship Specialty Start Date End Date Pcp, No PCP - General 04/29/21 11/28/21 Caty Bowens MD [address] [place] [address] Hematology/Oncology 05/29/21 Marisela Rome MD, [address] [place], [place] [address] Physician Radiation Oncology 05/30/21 Amelia Souza RN Specialty Personal Care Service Provider Oncology 06/04/21 Shampoo Person Relationship Specialty Start Date End Date Pcp, No PCP - General 04/29/21 11/28/21 Caty Bowens MD [address] [place], [place] [address] Hematology/Oncology 05/29/21 Marisela Rome MD, [address] [place], [place] [address] [phone] Physician Radiation Oncology 05/30/21 Amelia Souza RN Specialty Personal Care Service Provider Oncology 06/04/21 Shampoo Person Relationship Specialty Start Date End Date Pcp, No PCP - General 04/29/21 11/28/21 Caty Bowens MD [address] [place], [place] [phone] Hematology/Oncology 05/29/21 Marisela Rome MD, [address] [facility] [place] [id number] [phone] Physician Radiation Oncology 05/30/21 Amelia Souza RN Specialty Personal Care Service Provider Oncology 06/04/21 Shampoo Person Relationship Specialty Start Date End Date Pcp, No PCP - General 04/29/21 11/28/21 Caty Bowens MD [address] [place] [address] Hematology/Oncology 05/29/21 Marisela Rome MD, [address] [place] [address] Physician Radiation Oncology 05/30/21 Amelia Souza RN Specialty Personal Care Service Provider Oncology 06/04/21 Shampoo Person Relationship Specialty Start Date End Date Pcp, No PCP - General 04/29/21 11/28/21 Caty Bowens MD [address] [place], [place] [address] Hematology/Oncology 05/29/21 Marisela Rome MD, [address] [place] [address] Physician Radiation Oncology 05/30/21 Amelia Souza RN Specialty Personal Care Service Provider Oncology 06/04/21 Shampoo Person Relationship Specialty Start Date End Date Pcp, No PCP - General 04/29/21 11/28/21 Caty Bowens MD [address] [place], [place] [phone] Hematology/Oncology 05/29/21 Marisela Rome MD, [address] [place] [address] Physician Radiation Oncology 05/30/21 Amelia Souza RN Specialty Personal Care Service Provider Oncology 06/04/21 Shampoo Person Relationship Specialty Start Date End Date Pcp, No PCP - General 04/29/21 11/28/21 Caty Bowens MD [address] [place] [address] Hematology/Oncology 05/29/21 Marisela Rome MD, [address] [place] [address] Physician Radiation Oncology 05/30/21 Amelia Souza RN Specialty Personal Care Service Provider Oncology 06/04/21 Shampoo Person Relationship Specialty Start Date End Date Pcp, No PCP - General 04/29/21 11/28/21 Caty Bowens MD [address] [place] [address] Hematology/Oncology 05/29/21 Marisela Rome MD, [address] [place] [address] Physician Radiation Oncology 05/30/21 Amelia Souza RN Specialty Personal Care Service Provider Oncology 06/04/21 Shampoo Person Relationship Specialty Start Date End Date Pcp, No PCP - General 04/29/21 11/28/21 Caty Bowens MD [address] [place] [address] Hematology/Oncology 05/29/21 Marisela Rome MD, [address] [place], [place] [address] [phone] Physician Radiation Oncology 05/30/21 Amelia Souza RN Specialty Personal Care Service Provider Oncology 06/04/21 Shampoo Person Relationship Specialty Start Date End Date Pcp, No PCP - General 04/29/21 11/28/21 Caty Bowens MD [address] [place] [address] Hematology/Oncology 05/29/21 Marisela Rome MD, [address] [place] [address] Physician Radiation Oncology 05/30/21 Amelia Souza RN Specialty Personal Care Service Provider Oncology 06/04/21 Shampoo Person Relationship Specialty Start Date End Date Pcp, No PCP - General 04/29/21 11/28/21 Caty Bowens MD [address] [place] [address] Hematology/Oncology 05/29/21 Marisela Rome MD, [address] [place] [address] Physician Radiation Oncology 05/30/21 Amelia Souza RN Specialty Personal Care Service Provider Oncology 06/04/21 Shampoo Person Relationship Specialty Start Date End Date Pcp, No PCP - General 04/29/21 11/28/21 Caty Bowens MD [address] [place], [place] [address] Hematology/Oncology 05/29/21 Marisela Rome MD, [address] [place] [address] Physician Radiation Oncology 05/30/21 Amelia Souza RN Specialty Personal Care Service Provider Oncology 06/04/21 Shampoo Person Relationship Specialty Start Date End Date Pcp, No PCP - General 04/29/21 11/28/21 Caty Bowens MD [address] [place], [place] [phone] Hematology/Oncology 05/29/21 Marisela Rome MD, [address] [place] [address] Physician Radiation Oncology 05/30/21 Amelia Souza RN Specialty Personal Care Service Provider Oncology 06/04/21 Shampoo Person Relationship Specialty Start Date End Date Pcp, No PCP - General 04/29/21 11/28/21 Caty Bowens MD [address] [place], [place] [address] Hematology/Oncology 05/29/21 Marisela Rome MD, [address] [place] [address] Physician Radiation Oncology 05/30/21 Amelia Souza RN Specialty Personal Care Service Provider Oncology 06/04/21 Shampoo Person Relationship Specialty Start Date End Date Pcp, No PCP - General 04/29/21 11/28/21 Caty Bowens MD [address] [place] [address] Hematology/Oncology 05/29/21 Marisela Rome MD, [address] [place] [address] Physician Radiation Oncology 05/30/21 Amelia Souza RN Specialty Personal Care Service Provider Oncology 06/04/21 Shampoo Person Relationship Specialty Start Date End Date Pcp, No PCP - General 04/29/21 11/28/21 Caty Bowens MD [address] [place] [address] Hematology/Oncology 05/29/21 Marisela Rome MD, [address] [place], [place] [address] [phone] Physician Radiation Oncology 05/30/21 Amelia Souza RN Specialty Personal Care Service Provider Oncology 06/04/21 Shampoo Person Relationship Specialty Start Date End Date Pcp, No PCP - General 04/29/21 11/28/21 Caty Bowens MD [address] [place] [address] Hematology/Oncology 05/29/21 Marisela Rome MD, [address] [place] [address] Physician Radiation Oncology 05/30/21 Amelia Souza RN Specialty Personal Care Service Provider Oncology 06/04/21 Shampoo Person Relationship Specialty Start Date End Date Pcp, No PCP - General 04/29/21 11/28/21 Caty Bowens MD [address] [place] [address] Hematology/Oncology 05/29/21 Marisela Rome MD, [address] [facility] [place] [address] Physician Radiation Oncology 05/30/21 Amelia Souza RN Specialty Personal Care Service Provider Oncology 06/04/21 Shampoo Person Relationship Specialty Start Date End Date Pcp, No PCP - General 04/29/21 11/28/21 Caty Bowens MD [address] [place] [address] Hematology/Oncology 05/29/21 Marisela Rome MD, [address] [place], [place] [phone] Physician Radiation Oncology 05/30/21 Amelia Souza, RN Specialty Personal Care Service Provider Oncology 06/04/21 Shampoo Person Relationship Specialty Start Date End Date Caty Bowens MD [address] [place] [address] Hematology/Oncology 05/29/21 Marisela Rome MD, [address] [place], [place] [address] Physician Radiation Oncology 05/30/21 Amelia Souza RN Specialty Personal Care Service Provider Oncology 06/04/21 Shampoo Person Relationship Specialty Start [place] [address] [place] [address] Hematology/Oncology 05/29/21 Marisela Rome MD, [address] [place], [place] [address] Physician Radiation Oncology 05/30/21 Amelia Souza RN Specialty Personal Care Service Provider Oncology 06/04/21 Shampoo Person Relationship Specialty Start Date End Date Caty Bowens MD [address] [place] [address] Hematology/Oncology 05/29/21 Marisela Rome MD, [address] [place], [place] [address] [phone] Physician Radiation Oncology 05/30/21 Amelia Souza RN Specialty Personal Care Service Provider Oncology 06/04/21 Helen Roa [address] [address] Cardiology 01/07/22 Shampoo Person Relationship Specialty Start Date End Date Caty Bowens MD [address] [place] [address] Hematology/Oncology 05/29/21 Marisela Rome MD, [address] [place] [address] Physician Radiation Oncology 05/30/21 Amelia Souza RN Specialty Personal Care Service Provider Oncology 06/04/21 Helen Roa [address] [address] Cardiology 01/07/22 Shampoo Person Relationship Specialty Start Date End Date Caty Bowens MD [address] [place] [address] Hematology/Oncology 05/29/21 Marisela Rome MD, [address] [place] [address] Physician Radiation Oncology 05/30/21 Amelia Souza RN Specialty Personal Care Service Provider Oncology 06/04/21 Helen Roa [address] [place] [phone] Cardiology 01/07/22 Shampoo Person Relationship Specialty Start Date End Date Caty Bowens MD [address] [place] [address] Hematology/Oncology 05/29/21 Marisela Rome MD, [address] [place] [address] Physician Radiation Oncology 05/30/21 Amelia Souza RN Specialty Personal Care Service Provider Oncology 06/04/21 Helen Roa [address] [address] Cardiology 01/07/22 Shampoo Person Relationship Specialty Start Date End Date Caty Bowens MD [address] [place] [address] Hematology/Oncology 05/29/21 Marisela Rome MD, [address] [place] [address] Physician Radiation Oncology 05/30/21 Amelia Souza RN Specialty Personal Care Service Provider Oncology 06/04/21 Helen Roa [address] [address] Cardiology 01/07/22 Shampoo Person Relationship Specialty Start Date End Date Caty Bowens MD [address] [place] [address] Hematology/Oncology 05/29/21 Marisela Rome MD, [address] [place] [address] Physician Radiation Oncology 05/30/21 Amelia Souza RN Specialty Personal Care Service Provider Oncology 06/04/21 Helen Roa [address] [address] Cardiology 01/07/22 Shampoo Person Relationship Specialty Start Date End Date Caty Bowens MD [address] [place] [address] Hematology/Oncology 05/29/21 Marisela Rome MD, [address] [place] [address] Physician Radiation Oncology 05/30/21 Doup, Amelia, RN Specialty Personal Care Service Provider Oncology 06/04/21 Helen Roa [address] [address] Cardiology 01/07/22 Ramiro Cheung MD [address] [place] [address] Referring Colon and Rectal Surgery 01/28/22 Ramiro Cheung MD [address] [place] [address] Home Care Provider Colon and Rectal Surgery 01/28/22 Leandro Cruz, DERRICK [address] [place], [place] [phone] Customer Care Agent Post Acute Care 01/28/22 Shampoo Person Relationship Specialty Start Date End Date Caty Bowens MD [address] [place] [address] Hematology/Oncology 05/29/21 Marisela Rome MD, [address] [place] [address] Physician Radiation Oncology 05/30/21 Amelia Souza RN Specialty Personal Care Service Provider Oncology 06/04/21 Helen Roa [address] [address] Cardiology 01/07/22 Ramiro Cheung MD [address] [place] [address] Referring Colon and Rectal Surgery 01/28/22 Ramiro Cheung MD [address] [place] [address] Home Care Provider Colon and Rectal Surgery 01/28/22 Leandro Cruz RN [address] [place] [address] Customer Care Agent Post Acute Care 01/28/22 Shampoo Person Relationship Specialty Start Date End Date Caty Bowens MD [address] [place] [address] Hematology/Oncology 05/29/21 Marisela Rome MD, [address] [place] [address] Physician Radiation Oncology 05/30/21 Amelia Souza RN Specialty Personal Care Service Provider Oncology 06/04/21 Helen Roa [address] [address] Cardiology 01/07/22 Ramiro Cheung MD [address] [place] [address] Referring Colon and Rectal Surgery 01/28/22 Ramiro Cheung MD [address] [place] [address] Home Care Provider Colon and Rectal Surgery 01/28/22 Leandro Cruz RN [address] [place], [place] [phone] Customer Care Agent Post Acute Care 01/28/22 Shampoo Person Relationship Specialty Start Date End Date Caty Bowens MD [address] [place] [address] Hematology/Oncology 05/29/21 Marisela Rome MD, [address] [place] [address] Physician Radiation Oncology 05/30/21 Amelia Souza RN Specialty Personal Care Service Provider Oncology 06/04/21 Helen Roa [address] [address] Cardiology 01/07/22 Ramiro Cheung MD [address] [place] [address] Referring Colon and Rectal Surgery 01/28/22 Ramiro Cheung MD [address] [place] [address] Home Care Provider Colon and Rectal Surgery 01/28/22 Leandro Cruz RN [address] [place], [place] [address] Customer Care Agent Post Acute Care 01/28/22 Shampoo Person Relationship Specialty Start Date End Date Caty Bowens MD [address] [place] [address] Hematology/Oncology 05/29/21 Marisela Rome MD, [address] [place], [place] [phone] Physician Radiation Oncology 05/30/21 Amelia Souza, DERRICK Specialty Personal Care Service Provider Oncology 06/04/21 Helen Roa AND[address] [place] [phone] Cardiology 01/07/22 Ramiro Cheung MD [address] [place] [address] Referring Colon and Rectal Surgery 01/28/22 Ramiro Cheung MD [address] [place] [address] Home Care Provider Colon and Rectal Surgery 01/28/22 Leandro Cruz RN [address] [place] [address] Customer Care Agent Post Acute Care 01/28/22 Shampoo Person Relationship Specialty Start Date End Date Caty Bowens MD [address] [place] [address] Hematology/Oncology 05/29/21 Marisela Rome MD, [address] [place] [address] Physician Radiation Oncology 05/30/21 Amelia Souza, RN Specialty Personal Care Service Provider Oncology 06/04/21 Helen Roa [address] [address] Cardiology 01/07/22 Ramiro Cheung MD [address] [address] Referring Colon and Rectal Surgery 01/28/22 Ramiro Cheung MD [address] [address] Home Care Provider Colon and Rectal Surgery 01/28/22 Leandro Cruz, RN [address] [place] [address] Customer Care Agent Post Acute Care 01/28/22 Shampoo Person Relationship Specialty Start Date End Date Caty Bowens MD [address] [place] [address] Hematology/Oncology 05/29/21 Marisela Rome MD, [address] [place] [address] Physician Radiation Oncology 05/30/21 Amelia Souza, RN Specialty Personal Care Service Provider Oncology 06/04/21 Helen Roa [address] [address] Cardiology 01/07/22 Ramiro Cheung MD [address] [place] [address] Referring Colon and Rectal Surgery 01/28/22 Ramiro Cheung MD [address] [address] Home Care Provider Colon and Rectal Surgery 01/28/22 Leandro Cruz, DERRICK [address] [place], [place] [phone] Customer Care Agent Post Acute Care 01/28/22 Shampoo Person Relationship Specialty Start Date End Date Caty Bowens MD [address] [place] [address] Hematology/Oncology 05/29/21 Marisela Rome MD, [address] [place], [place] [phone] Physician Radiation Oncology 05/30/21 Amelia Souza RN Specialty Personal Care Service Provider Oncology 06/04/21 Helen Roa [address] [phone] Cardiology 01/07/22 Ramiro Cheung MD [address] [address] Referring Colon and Rectal Surgery 02/13/22 03/02/22 Ramiro Cheung MD [address] [address] Home Care Provider Colon and Rectal Surgery 02/13/22 Leandro Cruz, DERRICK [address] [place] [address] Customer Care Agent Post Acute Care 02/24/22 Shampoo Person Relationship Specialty Start Date End Date Caty Bowens MD [address] [place] [address] Hematology/Oncology 05/29/21 Marisela Rome MD, [address] [place] [address] Physician Radiation Oncology 05/30/21 Amelia Souza, RN Specialty Personal Care Service Provider Oncology 06/04/21 Helen Roa [address] [address] Cardiology 01/07/22 Ramiro Cheung MD [address] [address] Referring Colon and Rectal Surgery 02/13/22 03/02/22 Ramiro Cheung MD [address] [address] Home Care Provider Colon and Rectal Surgery 02/13/22 Leandro Cruz, DERRICK [address] [place], [place] [phone] Customer Care Agent Post Acute Care 02/24/22 Shampoo Person Relationship Specialty Start Date End Date Caty Bowens MD [address] [place] [address] Hematology/Oncology 05/29/21 Marisela Rome MD, [address] [place] [address] Physician Radiation Oncology 05/30/21 Amelia Souza, RN Specialty Personal Care Service Provider Oncology 06/04/21 Helen Roa [address] [address] Cardiology 01/07/22 Ramiro Cheung MD [address] [address] Referring Colon and Rectal Surgery 02/13/22 03/02/22 Ramiro Cheung MD [address] [place] [address] Home Care Provider Colon and Rectal Surgery 02/13/22 Leandro Cruz RN [address] [place], [place] [phone] Customer Care Agent Post Acute Care 02/24/22 Shampoo Person Relationship Specialty Start Date End Date Caty Bowens MD [address] [place] [address] Hematology/Oncology 05/29/21 Marisela Rome MD, MD [address] [facility] [place] [address] Physician Radiation Oncology 05/30/21 Amelia Souza RN Specialty Personal Care Service Provider Oncology 06/04/21 Helen Roa [address] [address] Cardiology 01/07/22 Ramiro Cheung MD [address] [place] [address] Home Care Provider Colon and Rectal Surgery 02/13/22 Leandro Cruz, DERRICK [address] [place] [address] Customer Care Agent Post Acute Care 02/24/22 Shampoo Person Relationship Specialty Start Date End Date Caty Bowens MD [address] [place] [address] Hematology/Oncology 05/29/21 Marisela Rome MD, MD [address] [place] [address] Physician Radiation Oncology 05/30/21 Amelia Souza RN Specialty Personal Care Service Provider Oncology 06/04/21 Helen Roa [address] [address] Cardiology 01/07/22 Ramiro Cheung MD [address] [place] [address] Home Care Provider Colon and Rectal Surgery 02/13/22 Leandro Cruz, DERRICK [address] [place], [place] [phone] Customer Care Agent Post Acute Care 02/24/22 Shampoo Person Relationship Specialty Start Date End Date Caty Bowens MD [address] [place], [place] [phone] Hematology/Oncology 05/29/21 Marisela Rome MD, [address] [place] [address] Physician Radiation Oncology 05/30/21 Amelia Souza RN Specialty Personal Care Service Provider Oncology 06/04/21 Helen Roa [address] [address] Cardiology 01/07/22 Ramiro Cheung MD [address] [place] [address] Home Care Provider Colon and Rectal Surgery 02/13/22 Leandro Cruz RN [address] [place], [place] [phone] Customer Care Agent Post Acute Care 02/24/22 Shampoo Person Relationship Specialty Start Date End Date Caty Bowens MD [address] [place], [place] [phone] Hematology/Oncology 05/29/21 Marisela Rome MD, [address] [place] [address] Physician Radiation Oncology 05/30/21 Amelia Souza, RN Specialty Personal Care Service Provider Oncology 06/04/21 Helen Roa [address] [address] Cardiology 01/07/22 Ramiro Cheung MD [address] [address] Home Care Provider Colon and Rectal Surgery 02/13/22 Leandro Cruz, RN [address] [place] [address] Customer Care Agent Post Acute Care 02/24/22 Gurjit Delcid MD [address] [place], [place] [phone] Referring Internal Medicine 03/10/22 Estefany Stern, PT [address] [place], [place] [phone] Customer Care Agent Post Acute Care 03/11/22 Shampoo Person Relationship Specialty Start Date End Date Caty Bowens MD [address] [place], [place] [phone] Hematology/Oncology 05/29/21 Marisela Rome MD, [address] [place] [address] Physician Radiation Oncology 05/30/21 Amelia Souza, RN Specialty Personal Care Service Provider Oncology 06/04/21 Helen Roa [address] [address] Cardiology 01/07/22 Ramiro Cheung MD [address] [address] Home Care Provider Colon and Rectal Surgery 02/13/22 Leandro Cruz RN [address] [place] [address] Customer Care Agent Post Acute Care 02/24/22 Gurjit Delcid MD [address] [place] [address] Referring Internal Medicine 03/10/22 Estefany Stern, PT 8[address] [place] [address] Customer Care Agent Post Acute Care 03/11/22 Shampoo Person Relationship Specialty Start Date End Date Caty Bowens MD [address] [phone] Hematology/Oncology 05/29/21 Marisela Rome MD, [address] [place], [place] [id number] Physician Radiation Oncology 05/30/21 Amelia Souza RN Specialty Personal Care Service Provider Oncology 06/04/[address] [phone] Cardiology 01/07/22 Ramiro Cheung MD [address] [address] Home Care Provider Colon and Rectal Surgery 02/13/22 Leandro Cruz, DERRICK [address] [place], [place] [phone] Customer Care Agent Post Acute Care 02/24/22 Gurjit Delcid MD [address] [place] [address] Referring Internal Medicine 03/10/22 Estefany Stern, PT 8741 [place] [address] Customer Care Agent Post Acute Care 03/11/22 Shampoo Person Relationship Specialty Start Date End Date Caty Bowens MD 0[address] [place] [address] Hematology/Oncology 05/29/21 Marisela Rome MD, [address] [place] [address] Physician Radiation Oncology 05/30/21 Amelia Souza, RN Specialty Personal Care Service Provider Oncology 06/04/21 Helen Roa [address] [address] Cardiology 01/07/22 Ramiro Cheung MD [address] [address] Home Care Provider Colon and Rectal Surgery 02/13/22 Leandro Cruz, DERRICK 6[address] [place] [address] Customer Care Agent Post Acute Care 02/24/22 Gurjit Delcid MD [address] [place] [address] Referring Internal Medicine 03/10/22 Estefany Stern, PT [address] [place] [address] Customer Care Agent Post Acute Care 03/11/22 Shampoo Person Relationship Specialty Start Date End Date Caty Bowens MD [address]60 [place] [address] Hematology/Oncology 05/29/21 Marisela Rome MD, [address] [place] [address] Physician Radiation Oncology 05/30/21 Amelia Souza, RN Specialty Personal Care Service Provider Oncology 06/04/21 Helen Roa [address] [address] Cardiology 01/07/22 Ramiro Cheung MD [address] [address] Home Care Provider Colon and Rectal Surgery 02/13/22 Leandro Cruz RN [address] [place], [place] 0424531 Customer Care Agent Post Acute Care 02/24/22 Gurjit Delcid MD [address] [place] [address] Referring Internal Medicine 03/10/22 Estefany Stern, RANDALL 68[address] [place] [address] Customer Care Agent Post Acute Care 03/11/22 Shampoo Person Relationship Specialty Start Date End Date Caty Bowens MD 3040 [place] [address] Hematology/Oncology 05/29/21 Marisela Rome MD, [address] [facility] [address] Physician Radiation Oncology 05/30/21 Amelia Souza RN Specialty Personal Care Service Provider Oncology 06/04/21 Helen Roa [address] [address] Cardiology 01/07/22 Ramiro Cheung MD [address]86 [facility] [address] [address] Home Care Provider Colon and Rectal Surgery 02/13/22 Leandro Cruz RN [address] [place], [place] 3180231 Customer Care Agent Post Acute Care 02/24/22 Gurjit Delcid MD [address] [place] [address] Referring Internal Medicine 03/10/22 Estefany Stern, PT [address]21 [place] [address] Customer Care Agent Post Acute Care 03/11/22 Shampoo Person Relationship Specialty Start Date End Date Caty Bowens MD [address] [place] [address] Hematology/Oncology 05/29/21 Marisela Rome MD, [address] [place], [place] 14343691 Physician Radiation Oncology 05/30/21 Amelia Souza RN Specialty Personal Care Service Provider Oncology 06/04/21 Helen Roa [address] [phone] Cardiology 01/07/22 Ramiro Cheung MD [address] [address] Home Care Provider Colon and Rectal Surgery 02/13/22 Leandro Cruz, DERRICK [address]16 [place] [address] Customer Care Agent Post Acute Care 02/24/22 Gurjit Delcid MD [address] [place] [address] Referring Internal Medicine 03/10/22 Estefany Stern, PT 14[address] [place] [address] Customer Care Agent Post Acute Care 03/11/22 Shampoo Person Relationship Specialty Start Date End Date Caty Bowens MD [address] [place] [address] Hematology/Oncology 05/29/21 Marisela Rome MD, [address] [place] [address] Physician Radiation Oncology 05/30/21 Amelia Souza, RN Specialty Personal Care Service Provider Oncology 06/04/21 Helen Roa [address] [address] Cardiology 01/07/22 Ramiro Cheung MD [address] [phone] Home Care Provider Colon and Rectal Surgery 02/13/22 Leandro Cruz, RN [address]852 [place] [address] Customer Care Agent Post Acute Care 02/24/22 Gurjit Delcid MD [address] [place], [place] 5363895 Referring Internal Medicine 03/10/22 Estefany Stern, PT 68[address] [place], [place] 2413031 Customer Care Agent Post Acute Care 03/11/22 Shampoo Person Relationship Specialty Start Date End Date Caty Bowens MD 2412 [place] [address] Hematology/Oncology 05/29/21 Marisela Rome MD, [address] [place] [address] Physician Radiation Oncology 05/30/21 Amelia Souza, RN Specialty Personal Care Service Provider Oncology 06/04/21 Helen Roa [address] [address] Cardiology 01/07/22 Ramiro Cheung MD [address] [address] Home Care Provider Colon and Rectal Surgery 02/13/22 Leandro Cruz, RN [address] [place], [place] 4672031 Customer Care Agent Post Acute Care 02/24/22 Gurjit Delcid MD [address] [place] [address] Referring Internal Medicine 03/10/22 Estefany Stern, RANDALL [address] [place] [address] Customer Care Agent Post Acute Care 03/11/22 Shampoo Person Relationship Specialty Start Date End Date Caty Bowens MD [address] [place] [address] Hematology/Oncology 05/29/21 Marisela Rome MD, [address] [place], [place] 53038691 Physician Radiation Oncology 05/30/21 Amelia Souza, DERRICK Specialty Personal Care Service Provider Oncology 06/04/21 Helen Roa [address] [phone] Cardiology 01/07/22 Ramiro Cheung MD 3610 [facility] [address] [address] Home Care Provider Colon and Rectal Surgery 02/13/22 Leandro Cruz, RN [address] [place] [address] Customer Care Agent Post Acute Care 02/24/22 Gurjit Delcid MD [address] [place] [address] Referring Internal Medicine 03/10/22 Estefany Stern, PT 9931 [place] [address] Customer Care Agent Post Acute Care 03/11/22 Shampoo Person Relationship Specialty Start Date End Date Caty Bowens MD [address] [place] [address] Hematology/Oncology 05/29/21 Marisela Rome MD, [address] [place] [address] Physician Radiation Oncology 05/30/21 Amelia Souza, RN Specialty Personal Care Service Provider Oncology 06/04/21 Helen Roa [address] [address] Cardiology 01/07/22 Ramiro Cheung MD [address] [address] Home Care Provider Colon and Rectal Surgery 02/13/22 Leandro Cruz, RN [address] [place] [address] Customer Care Agent Post Acute Care 02/24/22 Gurjit Delcid MD [address] [place] [address] Referring Internal Medicine 03/10/22 Estefany Stern, PT [address] [place] [address] Customer Care Agent Post Acute Care 03/11/22 Shampoo Person Relationship Specialty Start Date End Date Caty Bowens MD 0[address] [place] [address] Hematology/Oncology 05/29/21 Marisela Rome MD, [address] [place] [address] Physician Radiation Oncology 05/30/21 Amelia Souza RN Specialty Personal Care Service Provider Oncology 06/04/21 Helen Roa [address] [facility] [address] [address] Cardiology 01/07/22 Ramiro Cheung MD [address] [address] Home Care Provider Colon and Rectal Surgery 02/13/22 Leandro Cruz, DERRICK [address]1 [place] [address] Customer Care Agent Post Acute Care 02/24/22 Gurjit Delcid MD [address] [place] [address] Referring Internal Medicine 03/10/22 Estefany Stern, PT [address] [place] [address] Customer Care Agent Post Acute Care 03/11/22 Shampoo Person Relationship Specialty Start Date End Date Caty Bowens MD 9505 [place] [address] Hematology/Oncology 05/29/21 Marisela Rome MD, [address] [place], [place] [address] Physician Radiation Oncology 05/30/21 Amelia Souza RN Specialty Personal Care Service Provider Oncology 06/04/21 Helen Roa [address] [address] Cardiology 01/07/22 Ramiro Cheung MD [address] [address] Home Care Provider Colon and Rectal Surgery 02/13/22 Leandro Cruz RN [address] [place], [place] 3049631 Customer Care Agent Post Acute Care 02/24/22 Gurjit Delcid MD [address] [place], [place] [phone] Referring Internal Medicine 03/10/22 Estefany Stern, PT [address] [place], [place] 4450931 Customer Care Agent Post Acute Care 03/11/22 Shampoo Person Relationship Specialty Start Date End Date Katy Faust MD [address]40 [place], [place] [phone] PCP - General Internal Medicine 04/06/22 Caty Bowens MD [address] [place], [place] 9720495 Hematology/Oncology 05/29/21 Marisela Rome MD, [address] [place], [place] 45724691 Physician Radiation Oncology 05/30/21 Amelia Souza RN Specialty Personal Care Service Provider Oncology 06/04/21 Helen Roa [address] [phone] Cardiology 01/07/22 Ramiro Cheung MD [address] [address] Home Care Provider Colon and Rectal Surgery 02/13/22 Leandro Cruz RN [address]51 [place], [place] 6255531 Customer Care Agent Post Acute Care 02/24/22 Gurjit Delcid MD [address] [place], [place] 4182995 Referring Internal Medicine 03/10/22 Estefany Stern, PT [address] [place] 0645731 Customer Care Agent Post Acute Care 03/11/22 Shampoo Person Relationship Specialty Start Date End Date Katy Faust MD 174 [place], [place] [phone] PCP - General Internal Medicine 04/06/22 Caty Bowens MD [address] [phone] Hematology/Oncology 05/29/21 Marisela Rome MD, [address] [place], [place] [address] Physician Radiation Oncology 05/30/21 Amelia Souza, RN Specialty Personal Care Service Provider Oncology 06/04/21 Helen Roa [address] [phone] Cardiology 01/07/22 Ramiro Cheung MD 6672 [facility] [address] [place] [address] Home Care Provider Colon and Rectal Surgery 02/13/22 Leandro Cruz, RN 6801 [place] [address] Customer Care Agent Post Acute Care 02/24/22 Gurjit Delcid MD [address] [place] [address] Referring Internal Medicine 03/10/22 Estefany Stern, PT 5371 [place] [address] Customer Care Agent Post Acute Care 03/11/22 Shampoo Person Relationship Specialty Start Date End Date Katy Faust MD 174 [place], [place] [id number] PCP - General Internal Medicine 04/06/22 Caty Bowens MD [address] [place], [place] 1169795 Hematology/Oncology 05/29/21 Marisela Rome MD, [address] [place], [place] 330[address] Physician Radiation Oncology 05/30/21 Amelia Souza RN Specialty Personal Care Service Provider Oncology 06/04/21 Helen Roa [address] [address] Cardiology 01/07/22 Ramiro Cheung MD [address] [address] Home Care Provider Colon and Rectal Surgery 02/13/22 Leandro Cruz, DERRICK 99[address] [place] [address] Customer Care Agent Post Acute Care 02/24/22 Gurjit Delcid MD [address] [place], [place] 7436395 Referring Internal Medicine 03/10/22 Estefany Stern, PT 68[address] [place], [place] 6513531 Customer Care Agent Post Acute Care 03/11/22 Shampoo Person Relationship Specialty Start Date End Date Katy Faust MD [address]40 [place], [place] [id number] PCP - General Internal Medicine 04/06/22 Caty Bowens MD [address] [place], [place] 5580995 Hematology/Oncology 05/29/21 Marisela Rome MD, [address] [place], [place] 95215691 Physician Radiation Oncology 05/30/21 Amelia Souza, RN Specialty Personal Care Service Provider Oncology 06/04/21 Helen Roa [address] [address] Cardiology 01/07/22 Ramiro Cheung MD [address] [phone] Home Care Provider Colon and Rectal Surgery 02/13/22 Leandro Cruz, DERRICK [address] [place] [address] Customer Care Agent Post Acute Care 02/24/22 Gurjit Delcid MD [address] [place], [place] 0077895 Referring Internal Medicine 03/10/22 Estefany Stern, PT 6801 [place] [address] Customer Care Agent Post Acute Care 03/11/22 Shampoo Person Relationship Specialty Start Date End Date Katy Faust MD [address]40 [place], [place] [id number] PCP - General Internal Medicine 04/06/22 Caty Bowens MD [address] [place], [place] [phone] Hematology/Oncology 05/29/21 Marisela Rome MD, [address] [place] [address] Physician Radiation Oncology 05/30/21 Amelia Souza, RN Specialty Personal Care Service Provider Oncology 06/04/21 Helen Roa [address] [address] Cardiology 01/07/22 Ramiro Cheung MD [address] [place] [address] Home Care Provider Colon and Rectal Surgery 02/13/22 Leandro Cruz, RN [address] [place], [place] 3579831 Customer Care Agent Post Acute Care 02/24/22 Gurjit Delcid MD [address] [place] [address] Referring Internal Medicine 03/10/22 Estefany Stern, PT [address]01 [place] [address] Customer Care Agent Post Acute Care 03/11/22 Shampoo Person Relationship Specialty Start Date End Date Katy Faust MD [address] [place], [place] [id number] PCP - General Internal Medicine 04/06/22 Caty Bowens MD [address] [place] [address] Hematology/Oncology 05/29/21 Marisela Rome MD, [address] [place], [place] 41[address] Physician Radiation Oncology 05/30/21 Amelia Souza RN Specialty Personal Care Service Provider Oncology 06/04/21 Helen Roa [address] [phone] Cardiology 01/07/22 Ramiro Cheung MD 5135 [facility] [address] [address] Home Care Provider Colon and Rectal Surgery 02/13/22 Leandro Cruz RN 0211 [place] [address] Customer Care Agent Post Acute Care 02/24/22 Gurjit Delcid MD [address] [place] [address] Referring Internal Medicine 03/10/22 AnujaLeniLeigh Estefany, PT [address] [place] [address] Customer Care Agent Post Acute Care 03/11/22 Team Status: Active Member Role Status Dates No Primary Care Physician Family Provider Active Dr. Katy Faust MD Primary Care Provider Active Team Status: Inactive Member Role Status Dates No Primary Care Physician Primary Care Provider, Refer ring Provider Active Bhavna CAMACHO, PA Attending Provider Active Team Status: Active Member Role Status Dates Dr. Katy Faust MD Primary Care Provider Active Dr. Helen Roa MD Attending Provider Active Team Status: Active Member Role Status Dates Dr. Katy Faust MD Primary Care Provider Active Bhavna Zhang Attending Provider Active Team Status: Active Member Role Status Dates Dr. Katy Faust MD Primary Care Provider Active Dr. Toro Diehl MD Attending Provider Active Team Status: Active Member Role Status Dates Dr. Katy Faust MD Primary Care Provider Active Carlos Trujillo ELECTRICAL MECHANICAL TECHNICIAN, ELECTRICAL MECHANICAL TECHNICIAN-C Attending Provider Active Team Status: Inactive Member Role Status Dates Dr. Katy Faust MD Primary Care Provider Active Bhavna CAMACHO, PA Attending Provider Active Team Status: Inactive Member Role Status Dates Dr. Katy Faust MD Primary Care Provider Active Bhavna CAMACHO, PA Attending Provider, Referr ing Provider Active Team Status: Inactive Member Role Status Dates Dr. Katy Faust MD Primary Care Provider Active Dr. Eriberto Salazar DO Attending Provider, Emergency P rovider Active Team Status: Inactive Member Role Status Dates Dr. Katy Faust MD Primary Care Provider Active Geovanny Villafana MD Attending Provider, Emergency Provid er Active Team Status: Inactive Member Role Status Dates Dr. Katy Faust MD Primary Care Provider Active Dr. Raghu Turpin DO Attending Provider, Emergency P rovider Active Shampoo Person Relationship Specialty Start Date End Date Katy Faust MD [address] [place], [place] [id number] PCP - General Internal Medicine 04/06/22 Caty Bowens MD [address] [place] [address] Hematology/Oncology 05/29/21 Marisela Rome MD, [address] [place], [place] [address] Physician Radiation Oncology 05/30/21 Amelia Souza, DERRICK Specialty Personal Care Service Provider Oncology 06/04/21 Helen Roa [address] [address] Cardiology 01/07/22 Ramiro Cheung MD [address] [address] Home Care Provider Colon and Rectal Surgery 02/13/22 Leandro Cruz, RN 5177 [place] [address] Customer Care Agent Post Acute Care 02/24/22 Gurjit Delcid MD [address] [place], [place] 8365795 Referring Internal Medicine 03/10/22 Estefany Stern, PT 24[address] [place], [place] [phone] Customer Care Agent Post Acute Care 03/11/22 Shampoo Person Relationship Specialty Start Date End Date Katy Faust MD [address] [place], [place] [id number] PCP - General Internal Medicine 04/06/22 Caty Bowens MD [address] [place], [place] 8544295 Hematology/Oncology 05/29/21 Marisela Rome MD, [address] [place] [address] Physician Radiation Oncology 05/30/21 Amelia Souza, RN Specialty Personal Care Service Provider Oncology 06/04/21 Helen Roa [address] [address] Cardiology 01/07/22 Ramiro Cheung MD [address]27[address] [place] [address] Home Care Provider Colon and Rectal Surgery 02/13/22 Leandro Cruz, RN [address] [place] [address] Customer Care Agent Post Acute Care 02/24/22 Gurjit Delcid MD [address] [place], [place] 5012895 Referring Internal Medicine 03/10/22 Estefany Stern, PT 68[address] [place] [address] Customer Care Agent Post Acute Care 03/11/22 Shampoo Person Relationship Specialty Start Date End Date Katy Faust MD [address] [place], [place] [phone] PCP - General Internal Medicine 04/06/22 Caty Bowens MD [address] [place] [address] Hematology/Oncology 05/29/21 Marisela Rome MD, [address] [place], [place] [phone] Physician Radiation Oncology 05/30/21 Amelia Souza, RN Specialty Personal Care Service Provider Oncology 06/04/21 Helen Roa [address] [facility] [address] [place] [address] Cardiology 01/07/22 Ramiro Cheung MD [address] [address] Home Care Provider Colon and Rectal Surgery 02/13/22 Leandro Cruz, DERRICK [address] [place], [place] 1168131 Customer Care Agent Post Acute Care 02/24/22 Gurjit Delcid MD [address] [place] [address] Referring Internal Medicine 03/10/22 Estefany Stern, PT 68[address] [place], [place] 5765131 Customer Care Agent Post Acute Care 03/11/22 Shampoo Person Relationship Specialty Start Date End Date Katy Faust MD [address] [place], [place] [id number] PCP - General Internal Medicine 04/06/22 Caty Bowens MD [address] [place] [address] Hematology/Oncology 05/29/21 Marisela Rome MD, [address] [place], [place] 74863691 Physician Radiation Oncology 05/30/21 Amelia Souza RN Specialty Personal Care Service Provider Oncology 06/04/21 Helen Roa [address] [address] Cardiology 01/07/22 Ramiro Cheung MD 2030 [facility] [address] [address] Home Care Provider Colon and Rectal Surgery 02/13/22 Leandro Cruz RN [address] [place], [place] 5860231 Customer Care Agent Post Acute Care 02/24/22 Gurjit Delcid MD [address] [place], [place] 1779895 Referring Internal Medicine 03/10/22 Estefany Stern, PT [address] [place], [place] [phone] Customer Care Agent Post Acute Care 03/11/22 Shampoo Person Relationship Specialty Start Date End Date Katy Faust MD [address] [place], [place] [id number] PCP - General Internal Medicine 04/06/22 Caty Bowens MD [address] [place] [phone] Hematology/Oncology 05/29/21 Marisela Rome MD, [address] [place], [place] 56179691 Physician Radiation Oncology 05/30/21 Amelia Souza RN Specialty Personal Care Service Provider Oncology 06/04/21 Helen Roa [address] [phone] Cardiology 01/07/22 Ramiro Cheung MD [address] 442760 [place] [address] Home Care Provider Colon and Rectal Surgery 02/13/22 Leandro Cruz, RN 4703 [place] [address] Customer Care Agent Post Acute Care 02/24/22 Gurjit Delcid MD [address] [place] [address] Referring Internal Medicine 03/10/22 Estefany Stern, PT [address] [place], [place] [phone] Customer Care Agent Post Acute Care 03/11/22 Shampoo Person Relationship Specialty Start Date End Date Katy Faust MD 174 [place], [place] [phone] PCP - General Internal Medicine 04/06/22 Caty Bowens MD 9504 [place], [place] [phone] Hematology/Oncology 05/29/21 Marisela Rome MD, [address] [place], [place] 26269691 Physician Radiation Oncology 05/30/21 Amelia Souza, DERRICK Specialty Personal Care Service Provider Oncology 06/04/21 Helen Roa [address] [phone] Cardiology 01/07/22 Ramiro Cheung MD [address] [phone] Home Care Provider Colon and Rectal Surgery 02/13/22 Leandro Cruz, RN [address]08 [place], [place] 0602031 Customer Care Agent Post Acute Care 02/24/22 Gurjit Delcid MD [address] [place] [address] Referring Internal Medicine 03/10/22 Estefany Stern, PT 6801 [place] [address] Customer Care Agent Post Acute Care 03/11/22 Shampoo Person Relationship Specialty Start Date End Date Katy Faust MD [address] [place], [place] [id number] PCP - General Internal Medicine 04/06/22 Caty Bowens MD [address] [place], [place] [phone] Hematology/Oncology 05/29/21 Marisela Rome MD, [address] [place], [place] 97435691 Physician Radiation Oncology 05/30/21 Amelia Souza, RN Specialty Personal Care Service Provider Oncology 06/04/21 Helen Roa [address] [address] Cardiology 01/07/22 Ramiro Cheung MD [address] [address] Home Care Provider Colon and Rectal Surgery 02/13/22 Gurjit Delcid MD [address] [place], [place] [id number] Referring Internal Medicine 03/10/22 Estefany Stern, PT [address] [place], [place] 9002631 Customer Care Agent Post Acute Care 03/11/22 Shampoo Person Relationship Specialty Start Date End Date Katy Faust MD [address] [place], [place] [id number] PCP - General Internal Medicine 04/06/22 Caty Bowens MD [address] [place] [address] Hematology/Oncology 05/29/21 Marisela Rome MD, [address] [place] [address] Physician Radiation Oncology 05/30/21 Amelia Souza, RN Specialty Personal Care Service Provider Oncology 06/04/21 Helen Roa [address] [place] [address] [address] Cardiology 01/07/22 [facility]ro [facility]ung MD [facility] [facility] [address] [address] Home Care Provider Colon and Rectal Surgery 02/13/22 Gurjit Delcid MD [address] [place] [address] Referring Internal Medicine 03/10/22 Estefany Stern, PT [address] [place], [place] [phone] Customer Care Agent Post Acute Care 03/11/22 Shampoo Person Relationship Specialty Start Date End Date Katy Faust MD [address] [place], [place] [id number] PCP - General Internal Medicine 04/06/22 [place] [address] [place] [address] Hematology/Oncology 05/29/21 Marisela Rome MD, [address] [place], [place] 11404691 Physician Radiation Oncology 05/30/21 Amelia Souza, RN Specialty Personal Care Service Provider Oncology 06/04/21 Helen Roa [address] [place] [address] [address] Cardiology 01/07/22 [facility]amiro [facility]ung MD [facility] [facility] [address] [address] Home Care Provider Colon and Rectal Surgery 02/13/22 Gurjit Delcid MD [address] [place] [address] Referring Internal Medicine 03/10/22 Estefany Stern, PT [address] [place] [address] Customer Care Agent Post Acute Care 03/11/22 Shampoo Person Relationship Specialty Start Date End Date Katy Faust MD [address] [place], [place] [id number] PCP - General Internal Medicine 04/06/22 Caty Bowens MD [address] [place], [place] 6667095 Hematology/Oncology 05/29/21 Marisela Rome MD, [address] [place], [place] 69367691 Physician Radiation Oncology 05/30/21 Amelia Souza, DERRICK Specialty Personal Care Service Provider Oncology 06/04/21 Helen Roa [address] [place] [address] [address] Cardiology 01/07/22 Ramiro Cheung MD [address] [address] Home Care Provider Colon and Rectal Surgery 02/13/22 Gurjit Delcid MD [address] [place] [address] Referring Internal Medicine 03/10/22 Estefany Stern, PT [address] [place] [address] Customer Care Agent Post Acute Care 03/11/22 Shampoo Person Relationship Specialty Start Date End Date Katy Faust MD [address] [place], [place] [id number] PCP - General Internal Medicine 04/06/22 Caty Bowens MD [address] [place] [address] Hematology/Oncology 05/29/21 Marisela Rome MD, [address] [place] [address] Physician Radiation Oncology 05/30/21 Amelia Souza, RN Specialty Personal Care Service Provider Oncology 06/04/21 Helen Roa [address] [address] Cardiology 01/07/22 Ramiro Cheung MD [address] [phone] Home Care Provider Colon and Rectal Surgery 02/13/22 Gurjit Delcid MD [address] [place], [place] [phone] Referring Internal Medicine 03/10/22 Estefany Stern, PT [address] [place], [place] [phone] Customer Care Agent Post Acute Care 03/11/22 Shampoo Person Relationship Specialty Start Date End Date Katy Faust MD [address] [place], [place] [id number] PCP - General Internal Medicine 04/06/22 Caty Bowens MD [address] [place] [address] Hematology/Oncology 05/29/21 Marisela Rome MD, [address] [place] [address] Physician Radiation Oncology 05/30/21 Amelia Souza, RN Specialty Personal Care Service Provider Oncology 06/04/21 Helen Roa [address] [place] [address] [address] [address] Cardiology 01/07/22 Ramiro Cheung MD [address]90 [facility] [address] [address] Home Care Provider Colon and Rectal Surgery 02/13/22 Gurjit Delcid MD [address] [place] [address] Referring Internal Medicine 03/10/22 Estefany Stern, PT [address] [place], [place] 1918931 Customer Care Agent Post Acute Care 03/11/22 Shampoo Person Relationship Specialty Start Date End Date Katy Faust MD [address] [place], [place] [id number] PCP - General Internal Medicine 04/06/22 [place] [address] [place] [address] Hematology/Oncology 05/29/21 Marisela Rome MD, [address] [place], [place] 69056691 Physician Radiation Oncology 05/30/21 Amelia Souza, RN Specialty Personal Care Service Provider Oncology 06/04/21 Helen Roa [address] [phone] Cardiology 01/07/22 Ramiro Cheung MD [address] [address] Home Care Provider Colon and Rectal Surgery 02/13/22 Gurjit Delcid MD [address] [place] [address] Referring Internal Medicine 03/10/22 Estefany Stern, PT [address] [place], [place] [phone] Customer Care Agent Post Acute Care 03/11/22 Shampoo Person Relationship Specialty Start Date End Date Katy Faust MD [address] [place], [place] [id number] PCP - General Internal Medicine 04/06/22 Caty Bowens MD [address] [place], [place] 3100095 Hematology/Oncology 05/29/21 Marisela Rome MD, [address] [place], [place] 65206691 Physician Radiation Oncology 05/30/21 Amelia Souza, DERRICK Specialty Personal Care Service Provider Oncology 06/04/21 Helen Roa [address] [place] [address] [phone] Cardiology 01/07/22 Ramiro Cheung MD [address] [address] Home Care Provider Colon and Rectal Surgery 02/13/22 Leandro Cruz, RN [address] [place], [place] 9689131 Customer Care Agent Post Acute Care 02/24/22 04/23/22 Gurjit Delcid MD [address] [place] [address] Referring Internal Medicine 03/10/22 Estefany Stern, PT [address] [place] [address] Customer Care Agent Post Acute Care 03/11/22 Shampoo Person Relationship Specialty Start Date End Date Katy Faust MD [address] [place], [place] [id number] PCP - General Internal Medicine 04/06/22 Caty Bowens MD [address] [place] [address] Hematology/Oncology 05/29/21 Marisela Rome MD, [address] [place], [place] 38999691 Physician Radiation Oncology 05/30/21 Amelia Souza, RN Specialty Personal Care Service Provider Oncology 06/04/21 Helen Roa [address] [phone] Cardiology 01/07/22 Ramiro Cheung MD [address] [place] [address] Home Care Provider Colon and Rectal Surgery 02/13/22 Gurjit Delcid MD [address] [place] [phone] Referring Internal Medicine 03/10/22 Estefany Stern, PT [address] [place], [place] 3584131 Customer Care Agent Post Acute Care 03/11/22 Shampoo Person Relationship Specialty Start Date End Date Katy Faust MD [address] [place], [place] [id number] PCP - General Internal Medicine 04/06/22 Caty Bowens MD [address] [place] [address] Hematology/Oncology 05/29/21 Marisela Rome MD, [address] [place], [place] 95770691 Physician Radiation Oncology 05/30/21 Amelia Souza, RN Specialty Personal Care Service Provider Oncology 06/04/21 Helen Roa [address] [place] [address] [address] Cardiology 01/07/22 Ramiro Cheung MD 5370 [facility] [address] [address] Home Care Provider Colon and Rectal Surgery 02/13/22 Gurjit Delcid MD [address] [place] [address] Referring Internal Medicine 03/10/22 Estefany Stern, PT [address] [place], [place] [phone] Customer Care Agent Post Acute Care 03/11/22 Shampoo Person Relationship Specialty Start Date End Date Katy Faust MD [address] [place], [place] [id number] PCP - General Internal Medicine 04/06/22 Caty Bowens MD [address] [place] [address] Hematology/Oncology 05/29/21 Marisela Rome MD, [address] [place], [place] 06038691 Physician Radiation Oncology 05/30/21 Amelia Souza, RN Specialty Personal Care Service Provider Oncology 06/04/21 Helen Roa [address] [place] [address] [address] Cardiology 01/07/22 Ramiro Cheung MD 1360 [facility] [place] [address] [address] Home Care Provider Colon and Rectal Surgery 02/13/22 Gurjit Delcid MD [address] [place] [address] Referring Internal Medicine 03/10/22 Estefany Stern, PT [address] [place] [address] Customer Care Agent Post Acute Care 03/11/22 Shampoo Person Relationship Specialty Start Date End Date Katy Faust MD [address] [place], [place] 266681 PCP - General Internal Medicine 04/06/22 Caty Bowens MD [address] [place], [place] 5250295 Hematology/Oncology 05/29/21 Marisela Rome MD, [address] [place], [place] 63286691 Physician Radiation Oncology 05/30/21 Amelia Souza, RN Specialty Personal Care Service Provider Oncology 06/04/21 Helen Roa [address] [place] [address] [address] Cardiology 01/07/22 Ramiro Cheung MD [address] [phone] Home Care Provider Colon and Rectal Surgery 02/13/22 Gurjit Delcid MD [address] [place], [place] 9563395 Referring Internal Medicine 03/10/22 Estefany Stern, PT [address] [place] [address] Customer Care Agent Post Acute Care 03/11/22 Shampoo Person Relationship Specialty Start Date End Date Katy Faust MD [address] [place], [place] [id number] PCP - General Internal Medicine 04/06/22 Caty Bowens MD [address] [place] [address] Hematology/Oncology 05/29/21 Marisela Rome MD, [address] [place] [address] Physician Radiation Oncology 05/30/21 Amelia Souza, RN Specialty Personal Care Service Provider Oncology 06/04/21 Helen oRa [address] [address] Cardiology 01/07/22 Ramiro Cheung MD [address] [phone] Home Care Provider Colon and Rectal Surgery 02/13/22 Gurjit Delcid MD [address] [place], [place] 7429995 Referring Internal Medicine 03/10/22 Estefany Stern, PT [address] [place], [place] [phone] Customer Care Agent Post Acute Care 03/11/22 Shampoo Person Relationship Specialty Start Date End Date Katy Faust MD [address] [place], [place] [id number] PCP - General Internal Medicine 04/06/22 Caty Bowens MD [address] [place] [address] Hematology/Oncology 05/29/21 Marisela Rome MD, [address] [place] [address] Physician Radiation Oncology 05/30/21 Amelia Souza, RN Specialty Personal Care Service Provider Oncology 06/04/21 Helen Roa [address] [place] [address] [address] [address] Cardiology 01/07/22 Ramiro Cheung MD [address] [place] [address] Home Care Provider Colon and Rectal Surgery 02/13/22 Grujit Delcid MD [address] [place] [address] Referring Internal Medicine 03/10/22 Estefany Stern, PT [address] [place], [place] [phone] Customer Care Agent Post Acute Care 03/11/22 Shampoo Person Relationship Specialty Start Date End Date Katy Faust MD [address] [place], [place] [id number] PCP - General Internal Medicine 04/06/22 Caty Bowens MD [address] [place] [address] Hematology/Oncology 05/29/21 Marisela Rome MD, [address] [place], [place] 98379691 Physician Radiation Oncology 05/30/21 Amelia Souza, RN Specialty Personal Care Service Provider Oncology 06/04/21 Helen Roa [address] [place] [address] [address] Cardiology 01/07/22 Ramiro Cheung MD 9500 [facility] [place] [address] [address] Home Care Provider Colon and Rectal Surgery 02/13/22 Gurjit Delcid MD [address] [place] [address] Referring Internal Medicine 03/10/22 Estefany Stern, PT [address] [place] [place], [place] [phone] Customer Care Agent Post Acute Care 03/11/22 Shampoo Person Relationship Specialty Start Date End Date Katy Faust MD [address] [place] 359411 PCP - General Internal Medicine 04/06/22 Caty Bowens MD [address] [place] [phone] Hematology/Oncology 05/29/21 Marisela Rome MD, [address] [place], [place] 50879691 Physician Radiation Oncology 05/30/21 Amelia Souza, RN Specialty Personal Care Service Provider Oncology 06/04/21 Helen Roa [address] [place] [address] [phone] Cardiology 01/07/22 Ramiro Cheung MD [address] [place] [address] Home Care Provider Colon and Rectal Surgery 02/13/22 [place] [address] [place], [place] 3964595 Referring Internal Medicine 03/10/22 Estefany Stern, PT [address] [place] [address] Customer Care Agent Post Acute Care 03/11/22 Shampoo Person Relationship Specialty Start Date End Date Katy Faust MD [address] [place] [address] PCP - General Internal Medicine 04/06/22 Caty Bowens MD [address] [place] [address] Hematology/Oncology 05/29/21 Marisela Rome MD, [address] [place], [place] 46273691 Physician Radiation Oncology 05/30/21 Amelia Souza, DERRICK Specialty Personal Care Service Provider Oncology 06/04/21 Helen Roa [address] [phone] Cardiology 01/07/22 Ramiro Cheung MD [address] [place] [phone] Home Care Provider Colon and Rectal Surgery 02/13/22 Gurjit Delcid MD [address] [place], [place] 4443795 Referring Internal Medicine 03/10/22 Estefany Stern, PT [address] [place], [place] [phone] Customer Care Agent Post Acute Care 03/11/22 Shampoo Person Relationship Specialty Start Date End Date Katy Faust MD [address] [place], [place] 352631 PCP - General Internal Medicine 04/06/22 Caty Bowens MD [address] [place] [address] Hematology/Oncology 05/29/21 Marisela Rome MD, [address] [place], [place] 006101 Physician Radiation Oncology 05/30/21 Amelia Souza, RN Specialty Personal Care Service Provider Oncology 06/04/21 Heeln Roa [address] [phone] Cardiology 01/07/22 Ramiro Cheung MD [address] [phone] Home Care Provider Colon and Rectal Surgery 02/13/22 Gurjit Delcid MD [address] [place], [place] 7526395 Referring Internal Medicine 03/10/22 Estefany Stern, PT [address] [place] [address] Customer Care Agent Post Acute Care 03/11/22 Shampoo Person Relationship Specialty Start Date End Date Katy Faust MD [address] [place], [place] [id number] PCP - General Internal Medicine 04/06/22 Caty Bowens MD [address] [place] [address] Hematology/Oncology 05/29/21 Marisela Rome MD, [address] [place], [place] 89811691 Physician Radiation Oncology 05/30/21 Amelia Souza, RN Specialty Personal Care Service Provider Oncology 06/04/21 Helen Roa [address] [phone] Cardiology 01/07/22 Ramiro Cheung MD [address] [phone] Home Care Provider Colon and Rectal Surgery 02/13/22 Gurjit Delcid MD [address] [place], [place] 8114795 Referring Internal Medicine 03/10/22 Estefany Stern, PT [address] [place], [place] [phone] Customer Care Agent Post Acute Care 03/11/22 Shampoo Person Relationship Specialty Start Date End Date Katy Faust MD [address] [place], [place] [id number] PCP - General Internal Medicine 04/06/22 Caty Bowens MD [address] [place] [phone] Hematology/Oncology 05/29/21 Marisela Rome MD, [address] [place], [place] 19057691 Physician Radiation Oncology 05/30/21 Amelia Souza RN Specialty Personal Care Service Provider Oncology 06/04/21 Helen Roa [address] [place] [address] [address] [phone] Cardiology 01/07/22 Ramiro Cheung MD [address] [address] Home Care Provider Colon and Rectal Surgery 02/13/22 Gurjit Delcid MD [address] [place] [address] Referring Internal Medicine 03/10/22 AnujaLeniLeigh Estefany, PT [address] [place] [address] Customer Care Agent Post Acute Care 03/11/22 10/06/22 Shampoo Person Relationship Specialty Start Date End Date Katy Faust MD [facility]0 [place], [place] 226911 PCP - General Internal Medicine 04/06/22 Caty Bowens MD [address] [place] [phone] Hematology/Oncology 05/29/21 Marisela Rome MD, [address] [place] 31383691 Physician Radiation Oncology 05/30/21 Amelia Souza, DERRICK Specialty Personal Care Service Provider Oncology 06/04/21 Helen Roa [address] [place] [address] [phone] Cardiology 01/07/22 [place] [address] [place] [address] Home Care Provider Colon and Rectal Surgery 02/13/22 Gurjit Delcid MD [address] [place] [address] Referring Internal Medicine 03/10/22 Shampoo Person Relationship Specialty Start Date End Date Katy Faust MD [address] [place] [address] PCP - General Internal Medicine 04/06/22 Caty Bowens MD [address] [place] [address] Hematology/Oncology 05/29/21 Marisela Rome MD, [address] [place] [address] Physician Radiation Oncology 05/30/21 Amelia Souza, DERRICK Specialty Personal Care Service Provider Oncology 06/04/21 Helen Roa [address] [place] [address] [phone] Cardiology 01/07/22 Ramiro Cheung MD [address] [address] Home Care Provider Colon and Rectal Surgery 02/13/22 Gurjit Delcid MD [address] [place] [address] Referring Internal Medicine 03/10/22 Shampoo Person Relationship Specialty Start Date End Date Katy Faust MD [address] [place] [address] PCP - General Internal Medicine 04/06/22 Caty Bowens MD [address] [place] [address] Hematology/Oncology 05/29/21 Marisela Rome MD, [address] [place] [address] Physician Radiation Oncology 05/30/21 Amelia Souza, RN Specialty Personal Care Service Provider Oncology 06/04/21 Helen Roa [address] [phone] Cardiology 01/07/22 Ramiro Cheung MD [address] [place], [place] 5826295 Home Care Provider Colon and Rectal Surgery 02/13/22 Gurjit Delcid MD [address] [place], [place] 7238395 Referring Internal Medicine 03/10/22 Shampoo Person Relationship Specialty Start Date End Date Katy Faust MD [address] [place], [place] [id number] PCP - General Internal Medicine 04/06/22 Caty Bowens MD [address] [place], [place] 6051795 Hematology/Oncology 05/29/21 Marisela Rome MD, [address] [place], [place] 34214691 Physician Radiation Oncology 05/30/21 Amelia Souza, DERRICK Specialty Personal Care Service Provider Oncology 06/04/21 Helen Roa [address] [phone] Cardiology 01/07/22 Ramiro Cheung MD [address] [place], [place] 2750895 Home Care Provider Colon and Rectal Surgery 02/13/22 Gurjit Delcid MD [address] [place], [place] 6262895 Referring Internal Medicine 03/10/22 Shampoo Person Relationship Specialty Start Date End Date Katy Faust MD [address] [place] [address] PCP - General Internal Medicine 04/06/22 Caty Bowens MD [address] [place], [place] 0245295 Hematology/Oncology 05/29/21 Marisela Rome MD, [address] [place], [place] 46464691 Physician Radiation Oncology 05/30/21 Amelia Souza, RN Specialty Personal Care Service Provider Oncology 06/04/21 Helen Roa [address] [phone] Cardiology 01/07/22 Ramiro Cheung MD [address] [place], [place] 2750895 Home Care Provider Colon and Rectal Surgery 02/13/22 Gurjit Delcid MD [address] [place] [address] Referring Internal Medicine 03/10/22 Shampoo Person Relationship Specialty Start Date End Date Katy Faust MD [address] [place] [address] PCP - General Internal Medicine 04/06/22 Caty Bowens MD [address] [place] [address] Hematology/Oncology 05/29/21 Marisela Rome MD, [address] [place] [address] Physician Radiation Oncology 05/30/21 Amelia Souza, DERRICK Specialty Personal Care Service Provider Oncology 06/04/21 Helen Roa [address] [place] [phone] Cardiology 01/07/22 [place] [address] [place], [place] 59933[address] Home Care Provider Colon and Rectal Surgery 02/13/22 [place] [address] [place] [address] Referring Internal Medicine 03/10/22 Shampoo Person Relationship Specialty Start Date End Date Katy Faust MD [address] [place] [address] PCP - General Internal Medicine 04/06/22 Caty Bowens MD [address] [place] [address] Hematology/Oncology 05/29/21 Marisela Rome MD, [address] [place] [address] Physician Radiation Oncology 05/30/21 Amelia Souza, RN Specialty Personal Care Service Provider Oncology 06/04/21 Helen Roa [address] [address] Cardiology 01/07/22 Ramiro Cheung MD [address] [address] Home Care Provider Colon and Rectal Surgery 02/13/22 Gurjit Delcid MD [address] [place], [place] 4337895 Referring Internal Medicine 03/10/22 Shampoo Person Relationship Specialty Start Date End Date Katy Faust MD [address] [place], [place] 413311 PCP - General Internal Medicine 04/06/22 Caty Bowens MD [address] [place] [address] Hematology/Oncology 05/29/21 Marisela Rome MD [address] [place] [address] Physician Radiation Oncology 05/30/21 Amelia Souza, DERRICK Specialty Personal Care Service Provider Oncology 06/04/21 Helen Roa MD [address] [address] Cardiology 01/07/22 Ramiro Cheung MD [address] [place] [address] Home Care Provider Colon and Rectal Surgery 02/13/22 Gurjit Delcid MD [address]00 [place] [address] Referring Internal Medicine 03/10/22 Shampoo Person Relationship Specialty Start Date End Date Katy Faust MD [address] [place] [address] PCP - General Internal Medicine 04/06/22 Caty Bowens MD [address]00 [place] [address] Hematology/Oncology 05/29/21 Marisela Rome MD [address] [place] [address] Physician Radiation Oncology 05/30/21 Amelia Souza, RN Specialty Personal Care Service Provider Oncology 06/04/21 Helen Roa MD [address] [address] Cardiology 01/07/22 Ramiro Cheung MD [address]00 [place] [address] Home Care Provider Colon and Rectal Surgery 02/13/22 Gurjit Delcid MD [address] [place] [phone] Referring Internal Medicine 03/10/22 Shampoo Person Relationship Specialty Start Date End Date Katy Faust MD [address] [place] [address] PCP - General Internal Medicine 04/06/22 Caty Bowens MD [address] [place] [address] Hematology/Oncology 05/29/21 Marisela Rome MD [address] [place], [place] 154781 Physician Radiation Oncology 05/30/21 Amelia Souza, DERRICK Specialty Personal Care Service Provider Oncology 06/04/21 Helen Roa MD [address] [place] [address] [phone] Cardiology 01/07/22 [place] [address] [place], [place] 599[address] Home Care Provider Colon and Rectal Surgery 02/13/22 Gurjit Delcid MD [address] [place] [address] Referring Internal Medicine 03/10/22 Shampoo Person Relationship Specialty Start Date End Date Katy Faust MD [address] [place] [address] PCP - General Internal Medicine 04/06/22 Caty Bowens MD [address] [place] [address] Hematology/Oncology 05/29/21 Marisela Rome MD [address] [place], [place] [phone] Physician Radiation Oncology 05/30/21 Amelia Souza, RN Specialty Personal Care Service Provider Oncology 06/04/21 Helen Roa MD [address] [place] [address] 1457[address] Cardiology 01/07/22 Ramiro Cheung MD [address] [address] Home Care Provider Colon and Rectal Surgery 02/13/22 Gurjit Delcid MD [address] [place] [address] Referring Internal Medicine 03/10/22 Team Status: Inactive Member Role Status Dates Dr. Katy Faust MD Primary Care Provider, Referr ing Provider Active Carlos Trujillo ELECTRICAL MECHANICAL TECHNICIAN, ELECTRICAL MECHANICAL TECHNICIAN-C Attending Provider Active Team Status: Inactive Member Role Status Dates Dr. Katy Faust MD Primary Care Provider, Referr ing Provider Active Dr. Raghu Reynolds MD Attending Provider Active Team Status: Active Member Role Status Dates Dr. Katy Faust MD Primary Care Provider Active Dr. Raghu Reynolds MD Attending Provider, Referring Pro vider Active Team Status: Inactive Member Role Status Dates Dr. Katy Faust MD Primary Care Provider Active Dr. Raghu Reynolds MD Attending Provider, Referring Pro vider Active Team Status: Inactive Member Role Status Dates Dr. Katy Faust MD Primary Care Provider Active Dr. Carmen Rangel MD Emergency Provider Active Shampoo Person Relationship Specialty Start Date End Date Katy Faust MD [address] [place], [place] 867721 PCP - General Internal Medicine 04/06/22 Caty Bowens MD [address] [place] [address] Hematology/Oncology 05/29/21 Marisela Rome MD [address] [place], [place] 38702691 Physician Radiation Oncology 05/30/21 Amelia Souza RN Specialty Personal Care Service Provider Oncology 06/04/21 Helen Roa MD [address] [facility] [address] [address] Cardiology 01/07/22 Ramiro Cheung MD [address] [place] 442760 [place] [address] Home Care Provider Colon and Rectal Surgery 02/13/22 Gurjit Delcid MD [address] [place] [address] Referring Internal Medicine 03/10/22 Shampoo Person Relationship Specialty Start Date End Date Katy Faust MD [address] [place], [place] [phone] PCP - General Internal Medicine 04/06/22 Caty Bowens MD [address] [place] [phone] Hematology/Oncology 05/29/21 Marisela Rome MD [address] [place], [place] 16289691 Physician Radiation Oncology 05/30/21 Amelia Souza, RN Specialty Personal Care Service Provider Oncology 06/04/21 Helen Roa MD [address] [place] [address] [address] [address] Cardiology 01/07/22 Ramiro Cheung MD [address] [place], [place] 9386395 Home Care Provider Colon and Rectal Surgery 02/13/22 Gurjit Delcid MD [address] [place] [address] Referring Internal Medicine 03/10/22 Team Status: Inactive Member Role Status Dates Dr. Katy Faust MD Primary Care Provider Active Dr. Carmen Rangel MD Attending Provider, Emergency Provider Active Shampoo Person Relationship Specialty Start Date End Date Katy Faust [address] [place], [place] 405671 PCP - General Internal Medicine 07/14/23 Shampoo Person Relationship Specialty Start Date End Date Katy Faust MD [address] [place], [place] 349851 PCP - General Internal Medicine 04/06/22 Caty Bowens MD [address] [place], [place] [phone] Hematology/Oncology 05/29/21 Marisela Rome MD [address] [place] [address] Physician Radiation Oncology 05/30/21 Amelia Souza, DERRICK Specialty Personal Care Service Provider Oncology 06/04/21 Helen Roa MD [address] 405961 Cardiology 01/07/22 [place] [address] [place] [address] Home Care Provider Colon and Rectal Surgery 02/13/22 [place] [address] [place], [place] [phone] Referring Internal Medicine 03/10/22 Sabrina Muñiz [address] [place] [address] 115 [place] [address] Colon and Rectal Surgery 07/19/23 Shampoo Person Relationship Specialty Start Date End Date Katy Faust MD [address] [place], [place] 881271 PCP - General Internal Medicine 04/06/22 Caty Bowens MD [address] [place] [address] Hematology/Oncology 05/29/21 Marisela Rome MD [address] [place] [address] Physician Radiation Oncology 05/30/21 Amelia Souza RN Specialty Personal Care Service Provider Oncology 06/04/21 Helen Roa MD [address] 231571 Cardiology 01/07/22 Ramiro Cheung MD [address] [place] [phone] Home Care Provider Colon and Rectal Surgery 02/13/22 Gurjit Delcid MD [address] [place] [address] Referring Internal Medicine 03/10/22 Sabrina Muñiz [address] [facility] [address] [place] [address] Colon and Rectal Surgery 07/19/23 Shampoo Person Relationship Specialty Start Date End Date Katy Faust MD [address] [place], [place] 567011 PCP - General Internal Medicine 04/06/22 Caty Bowens MD [address] [place] [address] Hematology/Oncology 05/29/21 Marisela Rome MD [address] [place], [place] [phone] Physician Radiation Oncology 05/30/21 Amelia Souza, RN Specialty Personal Care Service Provider Oncology 06/04/21 Helen Roa MD [address] [address] Cardiology 01/07/22 Ramiro Cheung MD [address] [place], [place] 5529795 Home Care Provider Colon and Rectal Surgery 02/13/22 Gurjit Delcid MD [address] [place], [place] 0157195 Referring Internal Medicine 03/10/22 Sabrina Muñiz [address] [facility] [address] [place] [address] Colon and Rectal Surgery 07/19/23 Shampoo Person Relationship Specialty Start Date End Date Katy Faust MD [address] [place], [place] 320491 PCP - General Internal Medicine 04/06/22 Caty Bowens MD [address] [place] [phone] Hematology/Oncology 05/29/21 Marisela Rome MD [address] [place], [place] [phone] Physician Radiation Oncology 05/30/21 Amelia Souza RN Specialty Personal Care Service Provider Oncology 06/04/21 Helen Roa MD [address] [address] [id number] Cardiology 01/07/22 Ramiro Cheung MD [address] [address] Home Care Provider Colon and Rectal Surgery 02/13/22 Gurjit Delcid MD [address] [place] [phone] Referring Internal Medicine 03/10/22 Sabrina Muñiz [address] [place] [address] Colon and Rectal Surgery 07/19/23 Shampoo Person Relationship Specialty Start Date End Date Katy Faust MD [address]40 [place] [address] PCP - General Internal Medicine 04/06/22 Caty Bowens MD 9500 [place] [address] Hematology/Oncology 05/29/21 Marisela Rome MD [address] [place], [place] [phone] Physician Radiation Oncology 05/30/21 Amelia Souza RN Specialty Personal Care Service Provider Oncology 06/04/21 Helen Roa MD [address] [address] [id number] Cardiology 01/07/22 Ramiro Cheung MD [address] [address] Home Care Provider Colon and Rectal Surgery 02/13/22 Gurjit Delcid MD [address] [place] [phone] Referring Internal Medicine 03/10/22 Sabrina Muñiz [address] [place] [address] Colon and Rectal Surgery 07/19/23 Shampoo Person Relationship Specialty Start Date End Date Katy Faust MD [facility] [place], [place] 196051 PCP - General Internal Medicine 04/06/22 Caty Bowens MD [address] [place], [place] 0901295 Hematology/Oncology 05/29/21 Marisela Rome MD [address] [place], [place] [phone] Physician Radiation Oncology 05/30/21 Amelia Souza, RN Specialty Personal Care Service Provider Oncology 06/04/21 Helen Roa MD [address] [address] Cardiology 01/07/22 Ramiro Cheung MD [address] [phone] Home Care Provider Colon and Rectal Surgery 02/13/22 Gurjit Delcid MD [address] [place] [phone] Referring Internal Medicine 03/10/22 Sabrina Muñiz [address] [place] [address] [phone] Colon and Rectal Surgery 07/19/23 Shampoo Person Relationship Specialty Start Date End Date Katy Faust MD [address] [place], [place] [id number] PCP - General Internal Medicine 04/06/22 Caty Bowens MD [address] [place], [place] 1136095 Hematology/Oncology 05/29/21 Marisela Rome MD [address] [place], [place] [phone] Physician Radiation Oncology 05/30/21 Amelia Souza, RN Specialty Personal Care Service Provider Oncology 06/04/21 Helen Roa MD [address] [phone] Cardiology 01/07/22 Ramiro Cheung MD [address] [place], [place] [phone] Home Care Provider Colon and Rectal Surgery 02/13/22 Gurjit Delcid MD [address] [place], [place] 1392895 Referring Internal Medicine 03/10/22 Sabrina Muñiz [address] [place] [address] 115 [place], [place] [phone] Colon and Rectal Surgery 07/19/23 Shampoo Person Relationship Specialty Start Date End Date Katy Faust MD [address] [place], [place] [id number] PCP - General Internal Medicine 04/06/22 Caty Bowens MD [address] [place], [place] 0520395 Hematology/Oncology 05/29/21 Marisela Rome MD [address] [place], [place] [phone] Physician Radiation Oncology 05/30/21 Amelia Souza RN Specialty Personal Care Service Provider Oncology 06/04/21 Helen Roa MD [address] [address] [id number] Cardiology 01/07/22 Ramiro Cheung MD [address] 0 [place] [address] Home Care Provider Colon and Rectal Surgery 02/13/22 Gurjit Delcid MD [address] [place] [address] Referring Internal Medicine 03/10/22 Sabrina Muñiz [address] [place] [address] [address] [place], [place] [phone] Colon and Rectal Surgery 07/19/23 Shampoo Person Relationship Specialty Start Date End Date Katy Faust MD [address] [place], [place] 270801 PCP - General Internal Medicine 04/06/22 Caty Bowens MD [address] [place], [place] 2335895 Hematology/Oncology 05/29/21 Marisela Rome MD [address] [place], [place] 916961 Physician Radiation Oncology 05/30/21 Amelia Souza, DERRICK Specialty Personal Care Service Provider Oncology 06/04/21 Helen Roa MD [address] 615191 Cardiology 01/07/22 Ramiro Cheung MD [address] [address] Home Care Provider Colon and Rectal Surgery 02/13/22 Gurjit Delcid MD [address] [place] [address] Referring Internal Medicine 03/10/22 Sabrina Muñiz [address] [place] [address] Street [address] [place], [place] [phone] Colon and Rectal Surgery 07/19/23 Shampoo Person Relationship Specialty Start Date End Date Katy Faust MD [address]40 [place], [place] 178981 PCP - General Internal Medicine 04/06/22 Caty Bowens MD [address] [place] [phone] Hematology/Oncology 05/29/21 Marisela Rome MD [address] [place], [place] [phone] Physician Radiation Oncology 05/30/21 Amelia Souza, DERRICK Specialty Personal Care Service Provider Oncology 06/04/21 Helen Roa MD [address] [id number] Cardiology 01/07/22 Ramiro Cheung MD 9500 [place] [address] Home Care Provider Colon and Rectal Surgery 02/13/22 Gurjit Delcid MD [address] [place] [phone] Referring Internal Medicine 03/10/22 Sabrina Muñiz [address] [place] [address] 115 [place] [address] Colon and Rectal Surgery 07/19/23 Shampoo Person Relationship Specialty Start Date End Date Katy Faust MD [address] [place], [place] [id number] PCP - General Internal Medicine 04/06/22 Caty Bowens MD [address] [place] [phone] Hematology/Oncology 05/29/21 Marisela Rome MD [address] [place], [place] [phone] Physician Radiation Oncology 05/30/21 Amelia Souza RN Specialty Personal Care Service Provider Oncology 06/04/21 Helen Roa MD [address] [id number] Cardiology 01/07/22 Ramiro Cheung MD [address] [address] Home Care Provider Colon and Rectal Surgery 02/13/22 Gurjit Delcid MD [address] [place] [address] Referring Internal Medicine 03/10/22 Sabrina Muñiz [address] [place] [address] [phone] Colon and Rectal Surgery 07/19/23 Shampoo Person Relationship Specialty Start Date End Date Katy Faust MD [address] [place], [place] [id number] PCP - General Internal Medicine 04/06/22 Caty Bowens MD [address]00 [place] [address] Hematology/Oncology 05/29/21 Marisela Rome MD [address] [place] [address] Physician Radiation Oncology 05/30/21 Amelia Souza RN Specialty Personal Care Service Provider Oncology 06/04/21 Helen Roa MD [address] [address] Cardiology 01/07/22 Ramiro Cheung MD [address] [facility] [address] [place] [address] Home Care Provider Colon and Rectal Surgery 02/13/22 Gurjit Delcid MD [address] [place] [address] Referring Internal Medicine 03/10/22 Sabrina Muñiz [address] [place] [address] Colon and Rectal Surgery 07/19/23 Shampoo Person Relationship Specialty Start Date End Date Katy Faust MD [address] [place], [place] 718751 PCP - General Internal Medicine 04/06/22 Caty Bowens MD [address]00 [place] [address] Hematology/Oncology 05/29/21 Marisela Rome MD [address] [place] [address] Physician Radiation Oncology 05/30/21 Amelia Souza, DERRICK Specialty Personal Care Service Provider Oncology 06/04/21 Helen Roa MD [address] [place] [address] [address] Cardiology 01/07/22 [facility]amiro [facility]ung MD [address] [facility] [place] [phone] Home Care Provider Colon and Rectal Surgery 02/13/22 Gurjit Delcid MD [address] [place] [phone] Referring Internal Medicine 03/10/22 Sabrina Muñiz [address] [place] [address] [phone] Colon and Rectal Surgery 07/19/23 Shampoo Person Relationship Specialty Start Date End Date Katy Faust MD [facility] [place] [address] PCP - General Internal Medicine 04/06/22 [place] [address] [place] [address] Hematology/Oncology 05/29/21 Marisela Rome MD [address] [place] [address] Physician Radiation Oncology 05/30/21 Amelia Souza, DERRICK Specialty Personal Care Service Provider Oncology 06/04/21 Helen Roa MD [address] 485481 Cardiology 01/07/22 Ramiro Cheung MD [address] [facility] [place] [phone] Home Care Provider Colon and Rectal Surgery 02/13/22 Gurjit Delcid MD [address] [place] [phone] Referring Internal Medicine 03/10/22 Sabrina Muñiz [address] [place] [address] [address] [place], [place] [phone] Colon and Rectal Surgery 07/19/23 Shampoo Person Relationship Specialty Start Date End Date Katy Faust MD [address] [place], [place] [id number] PCP - General Internal Medicine 04/06/22 Caty Bowens MD 4595 [place] [address] Hematology/Oncology 05/29/21 Marisela Rome MD [address] [place], [place] [phone] Physician Radiation Oncology 05/30/21 Amelia Souza, RN Specialty Personal Care Service Provider Oncology 06/04/21 Helen Roa MD [address] [phone] Cardiology 01/07/22 Ramiro Cheung MD [address] [place] [phone] Home Care Provider Colon and Rectal Surgery 02/13/22 Gurjit Delcid MD [address] [place] [address] Referring Internal Medicine 03/10/22 Sabrina Muñiz [address] [facility] [address] [place] [address] Colon and Rectal Surgery 07/19/23 Shampoo Person Relationship Specialty Start Date End Date Katy Faust MD 1740 [place] [address] PCP - General Internal Medicine 04/06/22 Caty Bowens MD [address] [place], [place] 4235495 Hematology/Oncology 05/29/21 Marisela Rome MD [address] [place] [address] Physician Radiation Oncology 05/30/21 Amelia Souza, DERRICK Specialty Personal Care Service Provider Oncology 06/04/21 Helen Roa MD [address] [place], [place] 337391 Cardiology 01/07/22 Ramiro Cheung MD [address] [place], [place] 5694295 Home Care Provider Colon and Rectal Surgery 02/13/22 Gurjit Delcid MD [address] [place], [place] 1359695 Referring Internal Medicine 03/10/22 Sabrina Muñiz [address] [facility] [address] [place] [address] Colon and Rectal Surgery 07/19/23 Shampoo Person Relationship Specialty Start Date End Date Katy Faust MD [address]40 [place], [place] 198071 PCP - General Internal Medicine 04/06/22 [place] [address] [place] [address] Hematology/Oncology 05/29/21 Marisela Rome MD [address] [place], [place] [phone] Physician Radiation Oncology 05/30/21 Amelia Souza, DERRICK Specialty Personal Care Service Provider Oncology 06/04/21 Helen Roa MD [address] [phone] Cardiology 01/07/22 Ramiro Cheung MD [address] [place] [address] Home Care Provider Colon and Rectal Surgery 02/13/22 Gurjit Delcid MD [address] [place] [address] Referring Internal Medicine 03/10/22 Sabrina Muñiz [address] [place] [address] [phone] Colon and Rectal Surgery 07/19/23 Shampoo Person Relationship Specialty Start Date End Date Katy Faust MD [facility]0 [place], [place] [phone] PCP - General Internal Medicine 04/06/22 [place] [address] [place] [address] Hematology/Oncology 05/29/21 Marisela Rome MD [address] [place], [place] [phone] Physician Radiation Oncology 05/30/21 Amelia Souza, RN Specialty Personal Care Service Provider Oncology 06/04/21 Helen Roa MD [address] [phone] Cardiology 01/07/22 [place] [address] [place] [address] Home Care Provider Colon and Rectal Surgery 02/13/22 Gurjit Delcid MD [address] [place], [place] [phone] Referring Internal Medicine 03/10/22 Sabrina Muñiz [address] [place] [address] 115 [place], [place] [phone] Colon and Rectal Surgery 07/19/23 Srinivasan Da Silva, FLOW SPECIALIST.FUEL AGENT 1740 [place] [address] Wire Roller Internal Medicine 02/07/24 Norm Parker, FLOW SPECIALIST.SECURITY SYSTEM INSTALLER 1740 [place], [place] [phone] Wire Roller Internal Medicine 02/07/24 Shampoo Person Relationship Specialty Start Date End Date Katy Faust MD 1740 [place] [address] PCP - General Internal Medicine 04/06/22 Caty Bowens MD 9500 [place] [address] Hematology/Oncology 05/29/21 Marisela Rome MD [address] [place], [place] 157441 Physician Radiation Oncology 05/30/21 Amelia Souza, DERRICK Specialty Personal Care Service Provider Oncology 06/04/21 Helen Roa MD [address] [phone] Cardiology 01/07/22 Ramiro Cheung MD [address] [phone] Home Care Provider Colon and Rectal Surgery 02/13/22 Gurjit Delcid MD [address] [place] [address] [phone] Referring Internal Medicine 03/10/22 Sabrina Muñiz [address] [place] [address] Colon and Rectal Surgery 07/19/23 Srinivasan Da Silva, FLOW SPECIALIST.FUEL AGENT [address] [place] [address] 089271 Wire Roller Internal Medicine 02/07/24 Norm Parker, FLOW SPECIALIST.SECURITY SYSTEM INSTALLER [address] [place] [address] [phone] Wire Roller Internal Medicine 02/07/24 Shampoo Person Relationship Specialty Start Date End Date Katy Faust MD [address] [place] [address] 693971 PCP - General Internal Medicine 04/06/22 Caty Bowens MD [address] [place], [place] 5495195 Hematology/Oncology 05/29/21 Marisela Rome MD [address] [place], [place] [phone] Physician Radiation Oncology 05/30/21 Amelia Souza, DERRICK Specialty Personal Care Service Provider Oncology 06/04/21 Helen Roa MD [address] [phone] Cardiology 01/07/22 Ramiro Cheung MD [address] [place] [address] Home Care Provider Colon and Rectal Surgery 02/13/22 Gurjit Delcid MD [address] [place] [address] Referring Internal Medicine 03/10/22 Sabrina Muñiz [address] [place] [address] [phone] Colon and Rectal Surgery 07/19/23 Srinivasan Da Silva, NAVNEET.FUEL AGENT [address] [place], [place] [phone] Wire Roller Internal Medicine 02/07/24 Norm Parker FLOW SPECIALIST.SECURITY SYSTEM INSTALLER 1740 [place], [place] [phone] Wire Roller Internal Medicine 02/07/24 Shampoo Person Relationship Specialty Start Date End Date Katy Faust MD 1740 [place] 922011 PCP - General Internal Medicine 04/06/22 Ctay Bowens MD [address] [place] [phone] Hematology/Oncology 05/29/21 Marisela Rome MD [address] [place], [place] [phone] Physician Radiation Oncology 05/30/21 Amelia Souza RN Specialty Personal Care Service Provider Oncology 06/04/21 Helen Roa MD [address] [phone] Cardiology 01/07/22 Ramiro Cheung MD [address] [place] [phone] Home Care Provider Colon and Rectal Surgery 02/13/22 Gurjit Delcid MD [address] [place] [address] Referring Internal Medicine 03/10/22 Sabrina Muñiz [address] [place] [address] Colon and Rectal Surgery 07/19/23 Srinivasan Da Silva APRN.FUEL AGENT 1740 [place] [address] Wire Roller Internal Medicine 02/07/24 Norm Parker APRN.SECURITY SYSTEM INSTALLER 1740 [place] [address] Wire Roller Internal Medicine 05/23/24 Shampoo Person Relationship Specialty Start Date End Date Katy Faust MD [address]40 [place] [address] PCP - General Internal Medicine 04/06/22 Caty Bowens MD [address] [place] [phone] Hematology/Oncology 05/29/21 Marisela Rome MD [address] [place], [place] 287591 Physician Radiation Oncology 05/30/21 Amelia Souza RN Specialty Personal Care Service Provider Oncology 06/04/21 Helen Roa MD [address] [address] Cardiology 01/07/22 Ramiro Cheung MD [address] [place] [address] Home Care Provider Colon and Rectal Surgery 02/13/22 Gurjit Delcid MD [address] [place] [address] Referring Internal Medicine 03/10/22 Sabrina Muñiz [address] [place] [address] [address] [place] [address] Colon and Rectal Surgery 07/19/23 Srinivasan Da Silva APRN.FUEL AGENT [address] [place], [place] [phone] Wire Roller Internal Medicine 02/07/24 Norm Parker APRN.SECURITY SYSTEM INSTALLER 1740 [place] [address] Wire Roller Internal Medicine 05/23/24 Shampoo Person Relationship Specialty Start Date End Date Katy Faust MD 1740 [place] [address] PCP - General Internal Medicine 04/06/22 Caty Bowens MD [address] [place] [phone] Hematology/Oncology 05/29/21 Marisela Rome MD [address] [place] [address] Physician Radiation Oncology 05/30/21 Amelia Souza, RN Specialty Personal Care Service Provider Oncology 06/04/21 Helen Roa MD [address] [id number] Cardiology 01/07/22 Ramiro Cheung MD [address] [address] Home Care Provider Colon and Rectal Surgery 02/13/22 Gurjit Delcid MD [address] [place] [address] Referring Internal Medicine 03/10/22 Sabrina Muñiz [address] [place] [address] 115 [place] [address] Colon and Rectal Surgery 07/19/23 Srinivasan Da Silva APRN.FUEL AGENT 1740 [place] [address] Wire Roller Internal Medicine 02/07/24 Norm Parker APRN.SECURITY SYSTEM INSTALLER 1740 [place] [address] Wire Roller Internal Medicine 05/23/24 Shampoo Person Relationship Specialty Start Date End Date Katy Faust MD [address]40 [place], [place] 023551 PCP - General Internal Medicine 04/06/22 Caty Bowens MD [address]506 [place] [address] Hematology/Oncology 05/29/21 Marisela Rome MD [address] [place], [place] 165871 Physician Radiation Oncology 05/30/21 Amelia Souza, DERRICK Specialty Personal Care Service Provider Oncology 06/04/21 Helen Roa MD [address] [id number] Cardiology 01/07/22 Ramiro Cheung MD [address]00 [facility] [address] [place] [address] Home Care Provider Colon and Rectal Surgery 02/13/22 Gurjit Delcid MD [address] [place] [address] Referring Internal Medicine 03/10/22 Sabrina Muñiz [address] [place] [address] Colon and Rectal Surgery 07/19/23 Srinivasan Da Silva, FLOW SPECIALIST.FUEL AGENT [address]40 [place] [address] Wire Roller Internal Medicine 02/07/24 Norm Parker FLOW SPECIALIST.SECURITY SYSTEM INSTALLER [address] [place], [place] [phone] Wire Roller Internal Medicine 05/23/24 Shampoo Person Relationship Specialty Start Date End Date Katy Faust MD [address]40 [place], [place] 509811 PCP - General Internal Medicine 04/06/22 Caty Bowens MD [address] [place] [phone] Hematology/Oncology 05/29/21 Marisela Rome MD [address] [place], [place] [phone] Physician Radiation Oncology 05/30/21 Amelia Souza, RN Specialty Personal Care Service Provider Oncology 06/04/21 Helen Roa MD [address] 782431 Cardiology 01/07/22 Ramiro Cheung MD [address] [address] Home Care Provider Colon and Rectal Surgery 02/13/22 Gurjit Delcid MD [address] [place] [address] Referring Internal Medicine 03/10/22 Sabrina Muñiz 95 [facility] [address] [place] [address] Colon and Rectal Surgery 07/19/23 Srinivasan Da Silva APRN.FUEL AGENT 1740 [place], [place] 094961 Wire Roller Internal Medicine 02/07/24 Norm Parker FLOW SPECIALIST.SECURITY SYSTEM INSTALLER [address] [place], [place] [id number] Wire Roller Internal Medicine 05/23/24 Shampoo Person Relationship Specialty Start Date End Date Katy Faust MD [address]40 [place], [place] [phone] PCP - General Internal Medicine 04/06/22 Caty Bowens MD [address] [place], [place] [phone] Hematology/Oncology 05/29/21 Marisela Rome MD [address] [place], [place] [phone] Physician Radiation Oncology 05/30/21 Amelia Souza, DERRICK Specialty Personal Care Service Provider Oncology 06/04/21 Helen Roa MD [address] [place] [address] [phone] Cardiology 01/07/22 Ramiro Cheung MD [address] [place] [address] Home Care Provider Colon and Rectal Surgery 02/13/22 [place] [address] [place] [address] [id number] Referring Internal Medicine 03/10/22 Sabrina Muñiz [address] [place] [address] [address] [place] [address] Colon and Rectal Surgery 07/19/23 Norm Parker, FLOW SPECIALIST.SECURITY SYSTEM INSTALLER [address]40 [place] [address] Wire Roller Internal Medicine 05/23/24 Srinivasan Da Silva, FLOW SPECIALIST.FUEL AGENT [address]40 [place] [address] Wire Roller Internal Medicine 07/19/24 Team Status: Active Member Role Status Dates Dr. Katy Faust MD Primary Care Provider Active Team Status: Inactive Member Role Status Dates Dr. Katy Faust MD Primary Care Provider Active Start: April 21, 2024 End: April 21, 2024 Dr. Katy Faust MD Referring Provider Active Start: April 21, 2024 End: April 21, 2024 Dr. Howard Siddiqui MD Attending Provider Active Start: April 21, 2024 End: April 21, 2024 Team Status: Inactive Member Role Status Dates Dr. Katy Faust MD Primary Care Provider Active Start: April 21, 2024 End: April 21, 2024 Dr. Bipin Oleary MD Attending Provider Active S tart: April 21, 2024 End: April 21, 2024 Team Status: Inactive Member Role Status Dates Dr. Katy Faust MD Primary Care Provider Active Start: April 25, 2024 End: April 25, 2024 Dr. Donovan Mccabe DO Attending Provider Active S tart: April 25, 2024 End: April 25, 2024 Dr. Donovan Mccabe DO Emergency Provider Active S tart: April 25, 2024 End: April 25, 2024 Team Status: Inactive Member Role Status Dates Dr. Katy Faust MD Primary Care Provider Active Start: July 06, 2024 End: July 06, 2024 Dr. Katy Faust MD Referring Provider Active Start: July 06, 2024 End: July 06, 2024 Dr. Howard Siddiqui MD Attending Provider Active Start: July 06, 2024 End: July 06, 2024 Team Status: Inactive Member Role Status Dates Dr. Katy Faust MD Primary Care Provider Active Start: August 01, 2024 End: August 01, 2024 JANICE Bocanegra Attending Provider Active Star t: August 01, 2024 End: August 01, 2024 JANICE Bocanegra Referring Provider Active Star t: August 01, 2024 End: August 01, 2024 Team Status: Active Member Role Status Dates Dr. Katy Faust MD Primary Care Provider Active Start: August 01, 2024 Dr. Raghu Reynlods MD Attending Provider Active S tart: August 01, 2024 Shampoo Person Relationship Specialty Start Date End Date Katy Faust MD [address] [place], [place] [id number] PCP - General Internal Medicine 04/06/22 Caty Bowens MD [address] [place] [address] Hematology/Oncology 05/29/21 Marisela Rome MD [address] [place], [place] [id number] Physician Radiation Oncology 05/30/21 Amelia Souza RN Specialty Personal Care Service Provider Oncology 06/04/21 Helen Roa MD [address] [id number] Cardiology 01/07/22 Ramiro Cheung MD [address] [place] [address] Home Care Provider Colon and Rectal Surgery 02/13/22 Gurjit Delcid MD [address] [place] [address] Referring Internal Medicine 03/10/22 Sabrina Muñiz [address] [place] [address] [address] [place], [place] [id number] Colon and Rectal Surgery 07/19/23 Norm Parker, FLOW SPECIALIST.SECURITY SYSTEM INSTALLER [address] [place], [place] [id number] Wire Roller Internal Medicine 05/23/24 Srinivasan Da Silva APRN.FUEL AGENT [address] [place], [place] [id number] Wire Roller Internal Medicine 07/19/24 Shampoo Person Relationship Specialty Start Date End Date Katy Faust MD [address] [place], [place] [id number] PCP - General Internal Medicine 04/06/22 Caty Bowens MD [address] [place] [address] Hematology/Oncology 05/29/21 Marisela Rome MD [address] [place], [place] [address] Physician Radiation Oncology 05/30/21 Amelia Souza, DERRICK Specialty Personal Care Service Provider Oncology 06/04/21 Helen Roa MD [address] [address] Cardiology 01/07/22 Ramiro Cheung MD [address] [facility] [address] [place] [address] Home Care Provider Colon and Rectal Surgery 02/13/22 Gurjit Delcid MD [address] [place] [address] Referring Internal Medicine 03/10/22 Sabrina Muñiz [address] [place] [address] [address] [place] [address] Colon and Rectal Surgery 07/19/23 Norm Parker, FLOW SPECIALIST.SECURITY SYSTEM INSTALLER [address] [place] [address] Wire Roller Internal Medicine 05/23/24 Srinivasan Da Silva, FLOW SPECIALIST.FUEL AGENT [address] [place] [address] Wire Roller Internal Medicine 07/19/24 Team Status: Active Member Role Status Dates Dr. Katy Faust MD Primary Care Provider Active Start: August 01, 2024 Dr. Raghu Reynolds MD Attending Provider Active S tart: August 01, 2024 JANICE Bocanegra Referring Provider Active Star t: August 01, 2024 Team Status: Inactive Member Role Status Dates Dr. Katy Faust MD Primary Care Provider Active Start: August 23, 2024 End: August 23, 2024 Dr. Katy Faust MD Referring Provider Active Start: August 23, 2024 End: August 23, 2024 JANICE Bocanegra Attending Provider Active Star t: August 23, 2024 End: August 23, 2024 Team Status: Active Member Role/Relationship Status Dates Dr. Katy Faust MD Primary Care Provider Active Team Status: Inactive Member Role/Relationship Status Dates Dr. Katy Faust MD Primary Care Provider Active Start: July 06, 2024 End: July 06, 2024 Dr. Katy Faust MD Referring Provider Active Start: July 06, 2024 End: July 06, 2024 Dr. Howard Siddiqui MD Attending Provider Active Start: July 06, 2024 End: July 06, 2024 Team Status: Inactive Member Role/Relationship Status Dates Dr. Katy Faust MD Primary Care Provider Active Start: August 01, 2024 End: August 01, 2024 JANICE Bocanegra Attending Provider Active Star t: August 01, 2024 End: August 01, 2024 JANICE Bocanegra Referring Provider Active Star t: August 01, 2024 End: August 01, 2024 Team Status: Active Member Role/Relationship Status Dates Dr. Katy Faust MD Primary Care Provider Active Start: August 01, 2024 Dr. Raghu Reynolds MD Attending Provider Active S tart: August 01, 2024 JANICE Bocanegra Referring Provider Active Star t: August 01, 2024 Team Status: Inactive Member Role/Relationship Status Dates Dr. Katy Faust MD Primary Care Provider Active Start: August 23, 2024 End: August 23, 2024 Dr. Katy Faust MD Referring Provider Active Start: August 23, 2024 End: August 23, 2024 JANICE Bocanegra Attending Provider Active Star t: August 23, 2024 End: August 23, 2024 Team Status: Inactive Member Role/Relationship Status Dates Dr. Katy Faust MD Primary Care Provider Active Start: September 13, 2024 End: September 13, 2024 Dr. Katy Faust MD Referring Provider Active Start: September 13, 2024 End: September 13, 2024 Dr. Howard Siddiqui MD Attending Provider Active Start: September 13, 2024 End: September 13, 2024 Team Status: Inactive Member Role/Relationship Status Dates Dr. Katy Faust MD Primary Care Provider Active Start: September 13, 2024 End: September 13, 2024 Dr. Bipin Oleary MD Attending Provider Active S tart: September 13, 2024 End: September 13, 2024 Team Status: Inactive Member Role/Relationship Status Dates Dr. Katy Faust MD Primary Care Provider Active Start: September 20, 2024 End: September 20, 2024 Dr. Howard Siddiqui MD Attending Provider Active Start: September 20, 2024 End: September 20, 2024 Dr. Howard Siddiqui MD Referring Provider Active Start: September 20, 2024 End: September 20, 2024 Team Status: Inactive Member Role/Relationship Status Dates Dr. Katy Faust MD Primary Care Provider Active Start: September 22, 2024 End: September 22, 2024 Dr. Howard Siddiqui MD Attending Provider Active Start: September 22, 2024 End: September 22, 2024 Dr. Howard Siddiqui MD Referring Provider Active Start: September 22, 2024 End: September 22, 2024 Team Status: Active Member Role/Relationship Status Dates Dr. Katy Faust MD Primary Care Provider Active Start: October 10, 2024 JANICE Bocanegra Attending Provider Active Star t: October 10, 2024 JANICE Bocanegra Referring Provider Active Star t: October 10, 2024 Team Status: Active Member Role/Relationship Status Dates Dr. Katy Faust MD Primary Care Provider Active Start: October 10, 2024 Dr. Raghu Reynolds MD Attending Provider Active S tart: October 10, 2024 Team Status: Inactive Member Role/Relationship Status Dates Dr. Katy Faust MD Primary Care Provider Active Start: October 13, 2024 End: October 13, 2024 Dr. Katy Faust MD Referring Provider Active Start: October 13, 2024 End: October 13, 2024 Dr. Howard Siddiqui MD Attending Provider Active Start: October 13, 2024 End: October 13, 2024 Team Status: Inactive Member Role/Relationship Status Dates Dr. Katy Faust MD Primary Care Provider Active Start: October 10, 2024 End: October 10, 2024 JANICE Bocanegra Attending Provider Active Star t: October 10, 2024 End: October 10, 2024 JANICE Bocanegra Referring Provider Active Star t: October 10, 2024 End: October 10, 2024 Shampoo Person Relationship Specialty Start Date End Date Katy Faust MD [address] [place] [address] PCP - General Internal Medicine 04/06/22 Caty Bowens MD [address] [place], [place] [id number] Hematology/Oncology 05/29/21 Marisela Rome MD [address] [place], [place] [address] Physician Radiation Oncology 05/30/21 Amelia Souza RN Specialty Personal Care Service Provider Oncology 06/04/21 Helen Roa MD [address] [id number] Cardiology 01/07/22 Ramiro Cheung MD [address] [address] Home Care Provider Colon and Rectal Surgery 02/13/22 Sabrina Muñiz [address] [place] [address] Colon and Rectal Surgery 07/19/23 Norm Parker, [employer].SECURITY SYSTEM INSTALLER [address] [place] [address] Wire Roller Internal Medicine 05/23/24 Srinivasan Da Silva, [employer].FUEL AGENT [address] [place] [address] Wire Roller Internal Medicine 07/19/24 Shampoo Person Relationship Specialty Start Date End Date Katy Faust MD [address] [place], [place] [address] PCP - General Internal Medicine 04/06/22 Caty Bowens MD [address] [place] [address] Hematology/Oncology 05/29/21 Marisela Rome MD [address] [place], [place] [address] Physician Radiation Oncology 05/30/21 Amelia Souza, RN Specialty Personal Care Service Provider Oncology 06/04/21 Helen Roa MD [address] [address] Cardiology 01/07/22 Ramiro Cheung MD [address] [place] [id number] Home Care Provider Colon and Rectal Surgery 02/13/22 Gurjit Delcid MD [address] [place] [id number] Referring Internal Medicine 03/10/22 08/23/24 Sabrina Muñiz [address] [place] [address] [address] [place] [address] Colon and Rectal Surgery 07/19/23 Norm Parker, FLOW SPECIALIST.SECURITY SYSTEM INSTALLER [address] [place], [place] [address] Wire Roller Internal Medicine 05/23/24 Srinivasan Da Silva, FLOW SPECIALIST.FUEL AGENT [address] [place], [place] [id number] Wire Roller Internal Medicine 07/19/24 Team Status: Active Member Role/Relationship Status Dates Dr. Katy Faust MD Primary care physician Active Team Status: Inactive Member Role/Relationship Status Dates Dr. Katy Faust MD Primary care physician Active Start: August 23, 2024 End: August 23, 2024 Dr. Katy Faust MD Referring Provider Active Start: August 23, 2024 End: August 23, 2024 JANICE Bocanegra Attending physician Active Sta rt: August 23, 2024 End: August 23, 2024 Team Status: Inactive Member Role/Relationship Status Dates Dr. Katy Faust MD Primary care physician Active Start: September 13, 2024 End: September 13, 2024 Dr. Katy Faust MD Referring Provider Active Start: September 13, 2024 End: September 13, 2024 Dr. Howard Siddiqui MD Attending physician Active Start: September 13, 2024 End: September 13, 2024 Team Status: Inactive Member Role/Relationship Status Dates Dr. Katy Faust MD Primary care physician Active Start: September 13, 2024 End: September 13, 2024 Dr. Bipin Oleary MD Attending physician Active Start: September 13, 2024 End: September 13, 2024 Team Status: Inactive Member Role/Relationship Status Dates Dr. Katy Faust MD Primary care physician Active Start: September 20, 2024 End: September 20, 2024 Dr. Howard Siddiqui MD Attending physician Active Start: September 20, 2024 End: September 20, 2024 Dr. Howard Siddiqui MD Referring Provider Active Start: September 20, 2024 End: September 20, 2024 Team Status: Inactive Member Role/Relationship Status Dates Dr. Katy Faust MD Primary care physician Active Start: September 22, 2024 End: September 22, 2024 Dr. Howard Siddiqui MD Attending physician Active Start: September 22, 2024 End: September 22, 2024 Dr. Howard Siddiqui MD Referring Provider Active Start: September 22, 2024 End: September 22, 2024 Team Status: Inactive Member Role/Relationship Status Dates Dr. Katy Faust MD Primary care physician Active Start: October 10, 2024 End: October 10, 2024 JANICE Bocanegra Attending physician Active Sta rt: October 10, 2024 End: October 10, 2024 JANICE Bocanegra Referring Provider Active Star t: October 10, 2024 End: October 10, 2024 Team Status: Active Member Role/Relationship Status Dates Dr. Katy Faust MD Primary care physician Active Start: October 10, 2024 Dr. Raghu Reynolds MD Attending physician Active Start: October 10, 2024 JANICE Bocanegra Referring Provider Active Star t: October 10, 2024 Team Status: Inactive Member Role/Relationship Status Dates Dr. Katy Faust MD Primary care physician Active Start: October 13, 2024 End: October 13, 2024 Dr. Katy Faust MD Referring Provider Active Start: October 13, 2024 End: October 13, 2024 Dr. Howard Siddiqui MD Attending physician Active Start: October 13, 2024 End: October 13, 2024 Team Status: Inactive Member Role/Relationship Status Dates Dr. Katy Faust MD Primary care physician Active Start: November 29, 2024 End: November 29, 2024 Dr. Katy aFust MD Referring Provider Active Start: November 29, 2024 End: November 29, 2024 Carlos Trujillo ELECTRICAL MECHANICAL TECHNICIAN, ELECTRICAL MECHANICAL TECHNICIAN-C Attending physician Active Start: November 29, 2024 End: November 29, 2024 Goals (unrecognized section and content) Goals may be documented in a n alternate sectionGoals may be documented in an alternate sectionGoals may be documented in an alternate sectionGoals may be documented in an alternate sectionGoals may be documented in an alternate sectionGoals may be documented in an alternate sectionGoals may be documented in an alternate sectionGoals may be documented in an alternate sectionGoals may be documented in an alternate sectionGoals may be documented in an alternate sectionGoals may be documented in an alternate sectionGoals may be documented in an alternate sectionGoals may be documented in an alternate sectionGoals may be documented in an alternate section PRN Active and Recently Administ ered Medications (unrecognized section and content) Medication Order 12/01/2022 12/02/2022 12/03/2022 fentaNYL 50 mcg/mL injection (SUBLIMAZE) (CANCELED) INTRAVENOUS, X (OR/PROCEDURE) PRN, Starting on Thao 12/03/22 at 1123, Until Thao 12/03/22 at 1158, Intraprocedure 1123 (Given - Provid er: Corrine Ledesma RN) lidocaine 20 mg/mL (2 %) injection (XYLOCAINE) (CANCELED) X (OR/PROCEDURE) PRN, Starting on Thao 10/5/23 at 1130, Until Thao 12/03/22 at 1158, Intraprocedure 1130 (Given - Provid er: Justin William MD) midazolam (PF) injection (VERSED) (CANCELED) INTRAVENOUS, X (OR/PROCEDURE) PRN, Starting on Thao 12/03/22 at 1123, Until Htao 12/03/22 at 1158, Intraprocedure 1123 (Given - Provid er: Corrine Ledesma RN) FOR RECORDS PERTAINING TO PATIENTS WHO ARE OR HAVE BEEN ENROLLED IN A CHEMICAL DEPENDENCY/SUBSTANCEABUSE PROGRAM, SOME INFORMATION MAY BE OMITTED. This clinical summary was aggregated from multiple sources. Caution should be exercised in using it in the provision of clinical care. This summary normalizes information from multiple sources, and as a consequence, information in this document may materially change the coding, format and clinical context of patient data. In addition, data may be omitted in some cases. CLINICAL DECISIONS SHOULD BE BASED ON THE PRIMARY CLINICAL RECORDS. [facility]. provides no warranty or guarantee of the accuracy or completeness of information in this document.
--- NOTE | 2025-01-07 08:09 | MRI_ITS ---
PROCEDURE: SPINE LUMBAR W/WO CONTRAST 01/07/2025 REASON FOR EXAM: POSTOP URINARY RETENTION, LLE SCIATICA TECHNIQUE: Procedure Code: [id number] Modality: MR Procedure: SPINE LUMBAR W/WO CONTRAST Multiplanar and multisequence images were obtained without and with intravenous gadolinium-based contrast administration. CONTRAST: Clariscan VOLUME: 18 mL COMPARISON: MRI lumbar spine 12/09/2023. FINDINGS: Vertebrae: Status post laminectomies L3-L4. The vertebral bodies are preserved in height. Modic changes type 2 and type 3 at L3-L4. Alignment: Retrolisthesis L2 on L3 by 2 mm. Conus Medullaris: Unremarkable. No abnormal enhancement. L1-2: Disc bulge. Facet joint arthropathy. No significant foraminal or canal stenosis. L2-3: Disc bulge. Facet joint arthropathy. Ligamentum flavum hypertrophy. Mild inferior bilateral foramina stenosis. Moderate canal stenosis. L3-4: Status post laminectomies. Facet joints arthropathy. [id number]-ju-mbpyeodc bilateral foramina stenosis. L4-5: Status post laminectomies. Facet joint arthropathy. Mild bilateral foramina stenosis. L5-S1: Disc bulge. Facet joint arthropathy. Moderate bilateral foramina stenosis with abutment upon the exiting nerves. No significant canal stenosis. Sacrum: Unremarkable. Postcontrast images: Nonenhancing multi accumulated collection at the surgical bed extends to the skin and measures 6.2 cm in anteroposterior dimension 4.1 cm in craniocaudal dimension and 2.6 cm in transverse dimension in the surgical bed at L3-L4. The collection causes mass-effect upon with resultant severe narrowing of the thecal sac and crowding of the cauda equina nerves. Note that there is 3 cm pocket extending from the upper aspect of the collection and along the posterior dura at L2 level which measures 3 mm in anteroposterior dimension. MRI/Spine Lumbar W/WO Contrast IMPRESSION: Nonenhancing multi accumulated collection at the surgical bed extends to the sk in and measures 6.2 cm in anteroposterior dimension 4.1 cm in craniocaudal dimension and 2.6 cm in transverse dimension i n the surgical bed at L3-L4. The collection causes mass-effect upon with resultant severe narrowing of the thecal sac and c rowding of the cauda equina nerves. The collection is consistent with postsurgical seroma. Early abscess can not be ex cluded. Note that there is 3 cm pocket extending from the upper aspect of the collection and along the posterior dura at L2 leve l measures 3 mm in anteroposterior dimension. Reading Location: [id number]
[2025-01-07 08:38] LABS: Hematocrit 37.7 % (40-54); Hemoglobin 12.7 g/dL (13.0-16.5); Immature Granulocytes Count 0.040 X10^3/uL (0.0-0.0); Mean Corp Hgb Conc 33.7 g/dL (32-36); Mean Corpuscular Volume 92.4 fL (80-94); Mean Platelet Vol. 10.2 fl (6.2-12.0); NRBC Flagged by Analyzer 0 % (0-5); Platelet Count 217 K/mm3 (150-450); RBC Distribution Width CV 13.8 % (11.6-14.6); RBC Distribution Width SD 46.9 fl (35.1-43.9); Red Blood Count 4.08 M/mm3 (4.6-6.2); White Blood Count 6.7 K/mm3 (4.4-11.0)
[2025-01-07 08:48] LABS: Mucous, Urine 0 SEEN /hpf (<or=2+); Red Blood Cells-Urine 0 SEEN /hpf (0-5); Squamous Epithelial Cells - UA 0 SEEN /hpf (0-5)
[2025-01-07 08:52] LABS: Anion Gap 10 (5-15); BUN 15 mg/dL (4-19); BUN/Creat Ratio 13.5 RATIO (10-20); CRP 53.50 mg/L (0.0-3.0); Calcium,Total 8.8 mg/dL (7.6-11.0); Carbon Dioxide 24.8 mmol/L (21.0-32.0); Chloride 102 mmol/L (98-108); Estimated Creatinine Clearance 62.73 ml/min (50-250); Glucose 96 mg/dL (70-99); Potassium 3.9 mmol/L (3.3-5.1)
[2025-01-07 08:59] LABS: Color, Urine Yellow (Yellow); Glucose, Dipstick Normal (Normal); Ketone-Dipstick 5 mg/dl (Negative); Leukocyte Esterase-Dipstick Negative /ul (Negative); Nitrite-Dipstick Negative (Negative); Occult Blood-Urine Negative /ul (Negative); Protein-Dipstick 15 mg/dl (Negative); Specific Gravity, Urine 1.020 (1.002-1.030); Urine Bilirubin Dipstick Negative (Negative)
--- NOTE | 2025-01-07 10:14 | EDS_ITS ---
HPI History of Present Illness Chief Complaint: Back Informant: patient and EMS Narrative Narrative: Patient is a 74-year-old male with a history of chronic back pain and left leg weakness, presenting to the ED with severe back and bilateral leg pain, and difficulty ambulating and urinating following spinal surgery 6 days ago. - Underwent spinal surgery performed by Dr. Siddiqui 6 days ago at this hospital for chronic back pain and left leg weakness. - Reports severe back pain and bilateral leg pain, worse in the left leg, beginning a few days postoperatively; pain initially felt like sciatica down to the knees but has since worsened, now extending from the ankle to the shoulder. - Denies similar sciatica pain prior to surgery. - Experiencing significant difficulty ambulating due to pain; unable to stand or walk this morning. - Reports urinary retention and difficulty urinating for the past few days, worsening today and now cannot urinate and feels like he has acute urinary retention; denies numbness. - No fever, chills, emesis, or abdominal pain; ileostomy output is normal. - Taking tramadol and Tylenol for pain management; contacted Dr. Siddqiui's office multiple times regarding pain, but has not received a response. Now today unable to get up to stand due to severe pain in attempting to do so, and it is Wednesday. [facility] Medical History Leg cramps Obesity (BMI 30.0-34.9) MRSA (methicillin resistant staph aureus) culture positive Deaf Wears hearing aid Wears glasses Cancer High cholesterol DVT (deep venous thrombosis) Injury of head and neck Loss of consciousness Gastric reflux Former smoker History of edema History of echocardiogram History of stress test Cardiology follow-up encounter Pulmonary embolism Gastric artery aneurysm Ileostomy present Rectal cancer Intra abdominal hemorrhage Dilated aortic root 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 Subclavian artery stenosis, left GERD (gastroesophageal reflux disease) Meniere's disease Bilateral carotid artery stenosis Old myocardial infarction Premature ventricular contraction Peripheral vascular disease Presence of stent in coronary artery (~12/22/16) Essential hypertension Atherosclerotic heart disease of [place] coronary artery without angina pectoris Hypoacusis Dyslipidemia HTN (hypertension) CAD (coronary artery disease) Home Medications Medication Instructions Recorded Last Taken Type coenzyme Q10 50 mg capsule (Co 100 mg PO DAILY vitamin 03/04/18 01/18/24 History Q-10) cholecalciferol (vitamin D3) 50 4,000 unit PO DAILY vi tamin 07/21/19 01/17/24 History mcg (2,000 unit) capsule aspirin 81 mg tablet,delayed 81 mg PO DAILY 05/05/23 1 History release (Adult Low Dose Aspirin) Held on 01/03/25. Instructions: Resume on 01/04/25. magnesium 250 mg tablet 500 mg PO DAILY 05/05/23 History rosuvastatin 10 mg tablet 10 mg PO QDAY #90 tabs 11/0901/02/25 Rx multivitamin 1 tab PO DAILY 01/04/2406/23 History calcium 600 mg capsule 1,200 mg PO DAILY 12/19/24 U nknown History sennosides 8.6 mg-docusate sodium 2 tab PO BID PRN con stipation #14 01/03/25 Unknown Rx 50 mg tablet (Stimulant Laxative tabs Plus) methocarbamol 500 mg tablet 750 mg (1.5 x 500 mg) PO T ID PRN 01/05/25 Unknown Rx pain/spasms #30 tabs tramadol 50 mg tablet 50 mg PO Q6H PRN pain #20 ta bs 01/05/25 Unknown Rx Allergy/AdvReac Type Severity Reaction Status Date / Time clindamycin Allergy Intermediate Abd Verified 01/07/25 07:42 cramps/diarrhea cat dander (cats) AdvReac PT UNSURE Verified 01/07/25 07:42 OF REACTION codeine AdvReac Upset Verified 01/07/25 07:42 Stomach Family History Father CAD (coronary artery disease) Myocardial infarction, Onset Age: 45 Mother Carotid artery stenosis Surgical History H/O laminectomy History of fusion of cervical spine (01/18/24) History of coronary artery stent placement Presence of coronary angioplasty implant and graft (~12/22/16) History of tonsillectomy History of transurethral resection of prostate (~09/2016) S/P CABG (coronary artery bypass graft) (~09/16/98) S/P PTCA (percutaneous transluminal coronary angioplasty) (~12/22/16) Social History Smoking Status: Former smoker how long ago did patient quit smokin alcohol intake: current details: occasional ROS ROS ED Constitutional Constitutional ED: Denies chills or fever(s) Gastrointestinal Gastrointestinal: Reports nausea; Denies abdominal pain, constipation, fecal incontinence or vomiting Genitourinary Genitourinary ED: Reports other Details: +urinary retention ; Denies abdominal discomfort or urinary incontinence Musculoskeletal Musculoskeletal: Reports as per HPI and back pain; Denies neck pain Integumentary Denies rash or wounds Neurologic Neurologic: Denies headache(s), paresthesias or weakness EXAM Physical Exam Const Vital Signs: 01/07/25 07:42 01/07/25 11:19 01/07/25 13:00 Temperature 98.1 F Temperature Source Oral Pulse Rate 79 85 86 Respiratory Rate 16 Blood Pressure 141/71 H 164/90 H 157/77 H Blood Pressure Mean 94 114 103 Pulse Ox 98 Oxygen Delivery Method Room Air 01/07/25 14:17 Temperature 98.1 F Temperature Source Pulse Rate 85 Respiratory Rate 16 Blood Pressure 164/90 H Blood Pressure Mean Pulse Ox 98 Oxygen Delivery Method Positive well nourished and well developed General Appearance ED: well developed and NAD HEENT Negative for trauma or tenderness Eyes PERRL and EOMs intact bilaterally Neck full ROM and supple GI normal to inspection, nondistended, normoactive bowel sounds, soft to palpation and non-tender Back/Spine normal to inspection Back/Spine Narrative: Incision clean, dry, intact with jesi; no expressible discharge; scant serosanguineous discharge on dressing. Positive ipsilateral left lower extremity straight leg raise; negative contralateral straight leg raise. Lumbar Spine / Lower Back: ROM limited; Negative for lumbar spinal tenderness Extremity normal to inspection, full ROM and no pedal edema Neuro oriented x3 and no sensory deficits noted Neuro Narrative: Reflexes symmetric, hyporeflexic; no clonus; toes downgoing; strength and sensation intact. Sensorium / Orientation: alert Motor Exam: strength 5/5 throughout and clonus absent Deep Tendon Reflexes: Rt Patellar (L4): 2+, Lt Patellar (L4): 2+, Rt Ankle (S1): 2+ and Lt Ankle (S1): 2+ Deep Tendon Reflexes Back: Rt Patellar (L4): 2+, Lt Patellar (L4): 2+, Rt Ankle (S1): 2+ and Lt Ankle (S1): 2+ Plantar Reflex: Downgoing: bilateral Psych mental status grossly normal and thought process normal Skin no rashes or lesions noted and no wounds MDM MDM MDM Narrative Medical decision making narrative: We placed a Henriquez catheter in this gentleman, and 800 cc of urine was obtained. He was relieved, but this finding raises concern for post-operative co mplications such as hematoma, epidural hematoma, or abscess/collection. Therefore, an emergent MRI and labs were obtained. The labs show a normal white blood cell count of 6.7, an elevated ESR of 40, and an elevated CRP of 53.5. His renal function and electrolytes are normal, and his urinalysis shows no signs of infection. He was maintained on parenteral analgesics as needed and remained comfortable. He also received a dose of Valium for the MRI, which was uncomfortable, and he was experiencing muscle spasms. I reviewed the MRI images and discussed them with Dr. Siddiqui (spine surgery), as well as the MRI report, with which I agree. The findings are consistent with a non-enhancing collection most likely due to a post-surgical seroma or hematoma, although an early abscess cannot be ruled out. Dr. Siddiqui evaluated the patient and believes it is more likely a hematoma. We kept the patient NPO all morning except for a sip of water with oral Valium. The plan is to take him directly to the OR from the ER. Lab Data Attestation: I reviewed the patient's lab results. Labs: Laboratory Results - last 24 hr 01/07/25 01/07/25 08:30 08:44 WBC 6.7 RBC 4.08 L Hgb 12.7 L Hct 37.7 L MCV 92.4 MCH 31.1 MCHC 33.7 RDW Std Deviation 46.9 H RDW Coeff of [place] 13.8 Plt Count 217 MPV 10.2 Immature Gran % (Auto) 0.600 Neut % (Auto) 61.4 Lymph % (Auto) 15.8 L [place] % (Auto) 11.9 H Eos % (Auto) 9.3 H Baso % (Auto) 1.0 Absolute Neuts (auto) 4.1 Absolute Lymphs (auto) 1.06 Nucleated RBC % 0 ESR 40 H Sodium 137 Potassium 3.9 Chloride 102 Carbon Dioxide 24.8 Anion Gap 10 BUN 15 Creatinine 1.10 Estim Creat Clear Calc 62.73 Est GFR (MDRD) Non-Af 70 BUN/Creatinine Ratio 13.5 Glucose 96 Calcium 8.8 C-React Prot Ext Range 53.50 H Urine Color Yellow Urine Clarity Clear Urine pH 6.0 Ur Specific [place] 1.020 Urine Protein 15 H Urine Glucose (UA) Normal Urine Ketones 5 H Urine Occult Blood Negative Urine Nitrite Negative Urine Bilirubin Negative Urine Urobilinogen Normal Ur Leukocyte Esterase Negative Urine RBC 0 SEEN Urine WBC 0 SEEN Ur Squamous Epith Cells 0 SEEN Urine Bacteria 0 SEEN Urine Mucus 0 SEEN Radiography Diagnostic Testing: Clinical Impression(s) from Imaging Studies Lumbar Spine MRI 01/07/25 08:09 IMPRESSION: Nonenhancing multi accumulated collection at the surgical bed extends to the skin and measures 6.2 cm in anteroposterior dimension 4.1 cm in craniocaudal dimension and 2.6 cm in transverse dimension in the surgical bed at L3-L4. The collection causes mass-effect upon with resultant severe narrowing of the thecal sac and crowding of the cauda equina nerves. The collection is consistent with postsurgical seroma. Early abscess can not be excluded. Note that there is 3 cm pocket extending from the upper aspect of the collection and along the posterior dura at L2 level measures 3 mm in anteroposterior dimension. Reading [facility] Management Discussion w/another healthcare provider: Turning Machine Operator (Siddiqui spine surgery) Critical Care Time Critical Care Time: Yes Critical care time (excluding procedures): 30-74 minutes (44 min), Including time spent:, Discussing w/Patient &/or Family/Refrigerating Engineer Head, Discussing w/Consultants, Arranging Admission or Transfer and Performing Direct Patient Care at Bedside Discharge Plan Dx/Rx/DC Orders Clinical Impression: Epidural hematoma, Cauda equina syndrome, Acute urinary retention Disposition Disposition: [facility]
--- NOTE | 2025-01-07 14:09 | PCM.PRE.AN2 ---
ASA Classification* ASA Classification ASA Classification: 3 and E Assessment & Plan Anesthesia* Anesthesia Assessment Anesthesia Assessment: Discussed sedation and/or anesthesia options, risks, benefits, and alternatives with patient/parents/legal guardian/POA. Questions invited. The patient/parents/legal guardian/POA seems to understand and agrees to proceed with anesthesia plan. Reviewed the physical assessment, medical history, allergy history and patient home medications list prior to surgery/procedure/anesthetic and documented any changes. Performed airway and anesthesia risk assessments. Anesthesia Type Anesthesia Type: General History Source History Obtained from:: Patient and Chart Anesthesia Focused Assessment* Temperature: 98.1 F Pulse Rate: 85 Blood Pressure: 164/90 Respiratory Rate: 16 Pulse Ox: 98 Oxygen Delivery Method: Room Air Airway Assessment Mouth opens: >3 cm Mallampati Score: I Teeth Condition: Missing (Patient has a couple missing teeth. Rest are tight.), Partial (Top partial is out.) and Implants (Patient has a couple implants. They are tight.) Neck Range of motion (ROM): Limited ROM (Severe Restriction due to cervical fusion.) Labs Anesthesia Preop lab: CBC WBC, (4.4-11.0) 6.7 K/mm3 Today, 08:30 RBC, (4.6-6.2) 4.08 M/mm3 L Today, 08:30 Hgb, (13.0-16.5) 12.7 g/dL L Today, 08:30 Hct, (40-54) 37.7 % L Today, 08:30 Plt Count, (150-450) 217 K/mm3 Today, 08:30 CHEMISTRY Potassium, (3.3-5.1) 3.9 mmol/L Today, 08:30 Sodium, (133-145) 137 mmol/L Today, 08:30 Magnesium, (1.5-2.2) 2.3 mg/dL H 12/20/24, 12:17 BUN, (4-19) 15 mg/dL Today, 08:30 Creatinine, (0.70-1.20) 1.10 mg/dL Today, 08:30 Glucose, (70-99) 96 mg/dL Today, 08:30 POC Glucose, (74-106) 69 mg/dL L 01/02/25, 10:33 COAG PT, (11.7-14.9) 15.6 SECONDS H 03/01/22, 20:23 Pre-Assessment Diagnosis/Proposed Procedure Planned Operative Procedure(s): Evacuation of lumbar hematoma. Anesthesia History Anesthesia History - international sales representative: Anesthesia History - international sales representative Hx Hospitalization Yes: 12/2023 cervical fusion 12/19/24 10:25 Any Problems With Anesthesia No 12/19/24 10:25 Cholinesterase deficiency No 12/19/24 10:25 You/Your Family Experience No 12/19/24 10:25 fever (hyperthermia) with Relationship Recent Exposure to Contagious No 01/02/25 10:35 Disease Does patient have nerve No 12/19/24 10:25 stimulator Patient instructed to have device shut off --Does patient have Pacemaker or ICD? When Was Last Pacemaker Check QUESTION #4 FULL TEXT: You/Your Family Experience fever (hyperthermia) with Anesthesia Last Oral Intake Last Oral intake: Last Oral Intake NPO since 0000 Meds taken in AM with sips of water? Meds patient instructed to take am of surgery PONV PONV - international sales representative: PONV - international sales representative Female HX of Motion Sickness HX of N/V After Surgery Non-Smoker Duration of Surgery greater than 60 minutes Number of Risk Factors PONV Score Height & Weight Height & Weight: Anesthesia: Height & Weight Height 5 ft 6 in 01/07/25 07:42 Weight: 92.5 kg 01/07/25 07:42 Body Mass Index (BMI) 32.9 01/07/25 07:42 Respiratory Assessment Respiratory Assessment - international sales representative: Respiratory Tract Infection Hx - international sales representative Hx Respiratory Tract Infection No 12/19/24 10:25 STOP Sleep Apnea STOP Sleep Apnea - international sales representative: STOP Sleep Apnea - international sales representative Hx Hypertension No 12/19/24 10:25 Hx Sleep Apnea No 01/02/25 15:45 CPAP No 01/02/25 14:55 BIPAP No 12/19/24 10:25 Do you snore loudly (louder than talking or can be heard Do you often feel tired/ fatigued/ sleepy during daytime? Has anyone observed you stop breathing during sleep? STOP Results QUESTION #5 FULL TEXT : Do you snore loudly (louder than talking or can be heard through closed doors)? Tobacco Use History Tobacco Use History - international sales representative: Tobacco Use History - international sales representative Tobacco Use Smoking Status Former smoker 01/07/25 07:44 Hx Tobacco Use No 01/02/25 18:15 Years Smoking Packs Smoked per Day Smoking Cessation Date was No - quit smoking greater 01/07/25 07:44 within the last 15 years than 15 years ago Hx Smoking Cessation Date 02/19/00 01/07/25 07:44 Hx Smoking Cessation No 01/07/25 07:44 Counseling Hematologic Medial History Hematologic Hx - international sales representative: Hematologic Medical Hx - psychiatric arnp Hx of Blood Transfusion Hx of Transfusion in last 3 Months Date of Last Transfusion (if within last 3 months) Ever experience any problems with transfusion(s)? Specify any problems Hx of Preganancy in last 3 Months Nurse Filling Out Transfusion & Questions: Date: Time: Patient unable to answer at this time (ie. confused, unrespo /Reproduction History /Reproductive History - international sales representative: /Reproductive Hx- international sales representative Hx Now Gestational Age (in weeks): EDC: Hx Hx Para Hx Section SAB No 12/19/24 10:25 Does the father of the baby or his family experience fever w Father of the baby Malignant Hypertension history comment Active Medications Active Medications: Current Medications Generic Name Dose Route Start Last Admin Trade Name Freq PRN Reason Stop Dose Admin Hydromorphone HCl 1 mg 01/07/25 10:13 01/07/25 10:27 Hydromorphone 1 Mg/Ml Syringe IV 1 mg X1 PRN Administration Pain Score 6-10 PFSH Medical History Leg cramps Obesity (BMI 30.0-34.9) MRSA (methicillin resistant staph aureus) culture positive Deaf Wears hearing aid Wears glasses Cancer High cholesterol DVT (deep venous thrombosis) Injury of head and neck Loss of consciousness Gastric reflux Former smoker History of edema History of echocardiogram History of stress test Cardiology follow-up encounter Pulmonary embolism Gastric artery aneurysm Ileostomy present Rectal cancer Intra abdominal hemorrhage Dilated aortic root 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 Subclavian artery stenosis, left GERD (gastroesophageal reflux disease) Meniere's disease Bilateral carotid artery stenosis Old myocardial infarction Premature ventricular contraction Peripheral vascular disease Presence of stent in coronary artery (~12/22/16) Essential hypertension Atherosclerotic heart disease of [place] coronary artery without angina pectoris Hypoacusis Dyslipidemia HTN (hypertension) CAD (coronary artery disease) Home Medications Medication Instructions Recorded Last Taken Type coenzyme Q10 50 mg capsule (Co 100 mg PO DAILY vitamin 03/04/18 01/18/24 History Q-10) cholecalciferol (vitamin D3) 50 4,000 unit PO DAILY vitamin 07/21/19 01/17/24 History mcg (2,000 unit) capsule aspirin 81 mg tablet,delayed 81 mg PO DAILY 05/05/23 12/26/24 History release (Adult Low Dose Aspirin) Held on 01/03/25. Instructions: Resume on 01/04/25. magnesium 250 mg tablet 500 mg PO DAILY 05/05/23 01/14/24 History rosuvastatin 10 mg tablet 10 mg PO QDAY #90 tabs 11/10/23 01/02/25 Rx multivitamin 1 tab PO DAILY 01/04/24 01/02/25 History calcium 600 mg capsule 1,200 mg PO DAILY 12/19/24 Unknown History sennosides 8.6 mg-docusate sodium 2 tab PO BID PRN constipation #14 01/03/25 Unknown Rx 50 mg tablet (Stimulant Laxative tabs Plus) methocarbamol 500 mg tablet 750 mg (1.5 x 500 mg) PO TID PRN 01/05/25 Unknown Rx pain/spasms #30 tabs tramadol 50 mg tablet 50 mg PO Q6H PRN pain #20 tabs 01/05/25 Unknown Rx Allergy/AdvReac Type Severity Reaction Status Date / Time clindamycin Allergy Intermediate Abd Verified 01/07/25 07:42 cramps/diarrhea cat dander (cats) AdvReac PT UNSURE Verified 01/07/25 07:42 OF REACTION codeine AdvReac Upset Verified 01/07/25 07:42 Stomach Family History Father CAD (coronary artery disease) Myocardial infarction, Onset Age: 45 Mother Carotid artery stenosis Surgical History H/O laminectomy History of fusion of cervical spine (01/18/24) History of coronary artery stent placement Presence of coronary angioplasty implant and graft (~12/22/16) History of tonsillectomy History of transurethral resection of prostate (~09/2016) S/P CABG (coronary artery bypass graft) (~09/16/98) S/P PTCA (percutaneous transluminal coronary angioplasty) (~12/22/16) Social History Smoking Status: Former smoker how long ago did patient quit smokin alcohol intake: current details: occasional Review of Systems (Anesthesia) ROS Narrative System reviewed and no additional complaints, except as documented.
--- NOTE | 2025-01-07 14:25 | CONS.ORTHO ---
HPI Consult Data Date of Consult: 01/07/25 HPI Narrative HPI Narrative: JAI MOREJON, is a 74 M who presents with increased pain in the back and radiating into both lower extremities. He underwent L3-5 laminectomy on 01/02/2025. He was discharged on Wednesday. He had good pain control with the medications however the pain continued to increase and by Wednesday he was unable to walk and had severe radiating pain to both lower extremities. He also mentions of a fall on Wednesday. He says that he is not on blood thinners, although baby aspirin is on his medication list. It is unsure clear whether he restarted the baby aspirin. He denies taking any fish oil or any other supplements that could be blood thinners. He had some saturation of the dressing on day 1 which was changed before his discharge. He mentioned that dressings were changed multiple times at home. His mentions that she washed the area with ChloraPrep washing solution apparently. Patient denies any fevers. He has no headaches or photophobia. He has been unable to walk since yesterday. He has severe radiating pain into the buttock and posterior aspect of the thigh and leg bilaterally equal. He has an ileostomy. He mentioned that he has good sensations in the perineal area. He however did require Henriquez catheterization in the ER. [facility] Medical History Leg cramps Obesity (BMI 30.0-34.9) MRSA (methicillin resistant staph aureus) culture positive Deaf Wears hearing aid Wears glasses Cancer High cholesterol DVT (deep venous thrombosis) Injury of head and neck Loss of consciousness Gastric reflux Former smoker History of edema History of echocardiogram History of stress test Cardiology follow-up encounter Pulmonary embolism Gastric artery aneurysm Ileostomy present Rectal cancer Intra abdominal hemorrhage Dilated aortic root 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 Subclavian artery stenosis, left GERD (gastroesophageal reflux disease) Meniere's disease Bilateral carotid artery stenosis Old myocardial infarction Premature ventricular contraction Peripheral vascular disease Presence of stent in coronary artery (~12/22/16) Essential hypertension Atherosclerotic heart disease of [place] coronary artery without angina pectoris Hypoacusis Dyslipidemia HTN (hypertension) CAD (coronary artery disease) Home Medications Medication Instructions Recorded Last Taken Type coenzyme Q10 50 mg capsule (Co 100 mg PO DAILY vitamin 01/04/19 11/19/24 History Q-10) cholecalciferol (vitamin D3) 50 4,000 unit PO DAILY vitamin 07/21/19 01/17/24 History mcg (2,000 unit) capsule aspirin 81 mg tablet,delayed 81 mg PO DAILY 05/05/23 12/26/24 History release (Adult Low Dose Aspirin) Held on 01/03/25. Instructions: Resume on 01/04/25. magnesium 250 mg tablet 500 mg PO DAILY 05/05/23 01/14/24 History rosuvastatin 10 mg tablet 10 mg PO QDAY #90 tabs 11/10/23 01/02/25 Rx multivitamin 1 tab PO DAILY 01/04/24 01/02/25 History calcium 600 mg capsule 1,200 mg PO DAILY 12/19/24 Unknown History sennosides 8.6 mg-docusate sodium 2 tab PO BID PRN constipation #14 01/03/25 Unknown Rx 50 mg tablet (Stimulant Laxative tabs Plus) methocarbamol 500 mg tablet 750 mg (1.5 x 500 mg) PO TID PRN 01/05/25 Unknown Rx pain/spasms #30 tabs tramadol 50 mg tablet 50 mg PO Q6H PRN pain #20 tabs 01/05/25 Unknown Rx Allergy/AdvReac Type Severity Reaction Status Date / Time clindamycin Allergy Intermediate Abd Verified 01/07/25 07:42 cramps/diarrhea cat dander (cats) AdvReac PT UNSURE Verified 01/07/25 07:42 OF REACTION codeine AdvReac Upset Verified 01/07/25 07:42 Stomach Family History Father CAD (coronary artery disease) Myocardial infarction, Onset Age: 45 Mother Carotid artery stenosis Surgical History H/O laminectomy History of fusion of cervical spine (01/18/24) History of coronary artery stent placement Presence of coronary angioplasty implant and graft (~12/22/16) History of tonsillectomy History of transurethral resection of prostate (~09/2016) S/P CABG (coronary artery bypass graft) (~09/16/98) S/P PTCA (percutaneous transluminal coronary angioplasty) (~12/22/16) Social History Smoking Status: Former smoker how long ago did patient quit smokin alcohol intake: current details: occasional Vital Signs Vital Signs Vital Signs: 01/07/25 07:42 01/07/25 11:19 01/07/25 13:00 Temperature 98.1 F Temperature Source Oral Pulse Rate 79 85 86 Respiratory Rate 16 Blood Pressure 141/71 H 164/90 H 157/77 H Blood Pressure Mean 94 114 103 Pulse Ox 98 Oxygen Delivery Method Room Air 01/07/25 14:17 Temperature 98.1 F Temperature Source Pulse Rate 85 Respiratory Rate 16 Blood Pressure 164/90 H Blood Pressure Mean Pulse Ox 98 Oxygen Delivery Method Weight Weight: 203 lb 14.841 oz Body Mass Index (BMI) 32.9 Physical Exam Narrative Examination the back shows incision with jesi on. No active oozing or discharge on pressure. Mild maceration noticed around the skin. Mild serosanguineous staining of the Band-Aid noticed. Neurologic evaluation lower extremity shows 5 x 5 strength in both lower extremities. No perianal anesthesia at this time. Lab / Micro Data 01/07/25 08:30 01/07/25 08:30 Labs: Laboratory Results - last 24 hr 01/07/25 08:30: WBC 6.7, RBC 4.08 L, Hgb 12.7 L, Hct 37.7 L, MCV 92.4, MCH 31.1, MCHC 33.7, RDW Std Deviation 46.9 H, RDW Coeff of [place] 13.8, Plt Count 217, MPV 10.2, Immature Gran % (Auto) 0.600, Neut % (Auto) 61.4, Lymph % (Auto) 15.8 L, [place] % (Auto) 11.9 H, Eos % (Auto) 9.3 H, Baso % (Auto) 1.0, Absolute Neuts (auto) 4.1, Absolute Lymphs (auto) 1.06, Nucleated RBC % 0, ESR 40 H, Sodium 137, Potassium 3.9, Chloride 102, Carbon Dioxide 24.8, Anion Gap 10, BUN 15, Creatinine 1.10, Estim Creat Clear Calc 62.73, Est GFR (MDRD) Non-Af 70, BUN/Creatinine Ratio 13.5, Glucose 96, Calcium 8.8, C-React Prot Ext Range 53.50 H 01/07/25 08:44: Urine Color Yellow, Urine Clarity Clear, Urine pH 6.0, Ur Specific [place] 1.020, Urine Protein 15 H, Urine Glucose (UA) Normal, Urine Ketones 5 H, Urine Occult Blood Negative, Urine Nitrite Negative, Urine Bilirubin Negative, Urine Urobilinogen Normal, Ur Leukocyte Esterase Negative, Urine RBC 0 SEEN, Urine WBC 0 SEEN, Ur Squamous Epith Cells 0 SEEN, Urine Bacteria 0 SEEN, Urine Mucus 0 SEEN Imaging Radiology Impression Lumbar Spine MRI 01/07/25 08:09 IMPRESSION: Nonenhancing multi accumulated collection at the surgical bed extends to the skin and measures 6.2 cm in anteroposterior dimension 4.1 cm in craniocaudal dimension and 2.6 cm in transverse dimension in the surgical bed at L3-L4. The collection causes mass-effect upon with resultant severe narrowing of the thecal sac and crowding of the cauda equina nerves. The collection is consistent with postsurgical seroma. Early abscess can not be excluded. Note that there is 3 cm pocket extending from the upper aspect of the collection and along the posterior dura at L2 level measures 3 mm in anteroposterior dimension. Reading [facility] Assessment & Plan Assessment/Plan (1) Status post laminectomy: (2) Epidural hematoma: (3) Acute urinary retention: (4) Fall: QUALIFIERS: Encounter type: initial encounter Qualified Code(s): W19.XXXA - Unspecified fall, initial encounter PLAN: Plan I reviewed the MRI done in the ER today. This shows postsurgical changes of L3-5 laminectomy which was performed on Wednesday. There is a large collection of T2 hyperintense fluid in the epidural space extending into the deep and superficial areas causing large pressure effect on the cauda equina. Explained to patient the imaging findings in detail. He likely has developed an expanding hematoma which is compressing his cauda equina. It is unclear if it is from the baby aspirin versus the fall from yesterday. He has good perianal sensations at this time, but is requiring a Henriquez catheterization due to retention. Explained to him the importance and urgency of decompressing the cauda equina to retain sphincter function. I recommend urgent I&D exploration hematoma evacuation. I explained all risk benefits and alternatives. The risks include but are not limited to infection, bleeding, injury to nerves and vessels, CSF leak, need for further surgeries, persistent pain, persistent weakness and numbness, loss of sphincter function, nerve root injury, DVT, pulm embolism, pneumonia, atelectasis, cardiopulmonary event. Patient understands and agrees to proceed with surgery. I called and spoke with Marilu, patient's family member and updated her about the urgent need for surgery. All questions were answered. Charges/Coding Visit Charges Inpatient E&M: 28157 Init Hosp L3
[2025-01-07] MEDS: 0.9% Normal Saline (1000mL) 1,000 ML 150 ML IV (14:49)
--- OUTSIDE RECORDS SUMMARY | 2025-01-07 15:02 | XMS RPT_ITS | CCD ---
Author Organization [facility] [place] Care Team Providers Care Painter Tumbling Barrel Name Role Phone None, No PCP Unavailable [...] Roa Attending Provider Caty Bowens MD Unavailable Wild VARGAS MD, Zelalemung Unavailable Libby RN, [...] Care Provider Dr. Toro Diehl Attending Provider [facility] OFFICE MACHINES WIRER, OFFICE MACHINES WIRER-C Carlos Linda Attending Provider Anthony RN, Leandro Unavailable Libby RN, Amelia Unavailable Unavailable Leena PT, Estefany Unavailable JUSTIN WILLIAM Attending Unavailable JUSTIN WILLIAM Admitting Unavailable KATY FAUST Primary Care Unavailable Unavailable Primary Care Provider Unavailsawyer Rome MD, Marisela Unavailable Crispin VARGAS, Helen Zaidi Unavailable Dr. Katy Faust Primary Care Provider Dr. Katy Faust Referring Provider Ronnie OFFICE MACHINES WIRER, OFFICE MACHINES WIRER-C Carlos Linda Attending Provider Dr. Raghu Reynolds Attending Provider Dr. Raghu Reynolds Referring Provider Katy Faust MD Primary Care Provider Katy Faust Primary Care Provider SABRINA MUÑIZ Attending Unavailable KATY FAUST Primary Care Unavailable Sabrina Muñiz Unavailable Farhana VARGAS, Max Unavailable GISELA GENAO Referring Unavailab le Da Silva ACADEMIC AFFAIRS MANAGER.TECHNICIAN SUPPORT ENGINEER, Srinivasan Unavailable Elena ACADEMIC AFFAIRS MANAGER.FURNITURE INSPECTOR, Norm Unavailable GISELA GENAO Referring Unavailab le Elena ACADEMIC AFFAIRS MANAGER.FURNITURE INSPECTOR, Norm Unavailable Da Silva ACADEMIC AFFAIRS MANAGER.TECHNICIAN SUPPORT ENGINEER, Srinivasan Unavailable Dr. Katy Faust MD Primary Care Provider Dr. Katy Faust MD Referring Provider Artur VARGAS, Dr. Lawrence Attending Provider Anirudh VARGAS, Dr. Voss Attending Provider Estelle SPENCER, Dr. Mna Attending Provider [phone] Estelle SPENCER, Dr. Man Emergency Provider Amato PA, Naty Attending Provider [phone] Amato PA, Naty Referring Provider Gail VARGAS, Dr. Krishnamurthy Attending Provider Inna VARGAS, Dr. Katy Kwan Primary Care Provider Inna VARGAS, Dr. Katy Kwan Referring Provider Artur VARGAS, Dr. Lawrence Attending Provider Inna VARGAS, Dr. Katy Kwan Primary Care Provider Anirudh VARGAS, Dr. Voss Attending Provider [phone] [...] Gail VARGAS, Dr. Krishnamurthy Attending Physician Ronnie OFFICE MACHINES WIRER-Carlos Shell Attending Physician NORM PARKER Attending Unavailable [...] Talampas, Katy D Primary Care Unavailable Anirudh, Winslow Attending Unavailable Siddiqui, Howard Attending Unavailable Talampas, Katy D Referring Unavailable Talampas, Katy D Primary Care Unavailable Siddiqui, Howard Attending Unavailable Talampas, Katy D Referring Unavailable Talampas, Katy D Primary Care Unavailable Siddiqui, Howard Attending Unavailable Talampas, Katy D Referring Unavailable Talampas, Katy D Primary Care Unavailable Anirudh, Winslow Attending Unavailable Talampas, Katy D Primary Care Unavailable Siddiqui, Howard Attending Unavailable Talampas, Katy D Referring Unavailable Talampas, Katy D Primary Care Unavailable Anirudh, Winslow Attending Unavailable Talampas, Katy D Primary Care Unavailable Amato, Naty Attending Unavailable Amato, Naty Referring Unavailable Talampas, Katy D Primary Care Unavailable Allergies Allergy Classification Reported Allergen(s) Allergy Type Date of Onset Reaction(s) Facility Lincosamides (antibiotic) (3 sources) Clindamycin Drug Allergy 2 GI Upset [facility] Opioid Agonists (4 sources) Codeine; Translations: [codeine] Drug Allergy 8 GI Upset [facility] (20 sources) Codeine; Translations: [codeine] Drug Allergy 8 GI Upset, Other [facility] Work Phone: Comment on above: Sharp pain in stomac h (20 sources) Clindamycin; Translations: [CLINDAMYCIN] Drug Allergy 2 GI Upset, Other [facility] (20 sources) cat dander; Translations: [CAT DANDER] Propensity to adverse reactions 2 Other: See Comments [facility] (1 source) ALLERGIES NOT ON FILE; Translations: [ALLERGIES NOT ON FILE] Propensity to adverse reactions (disorder) [facility] (1 source) Clindamycin Drug Allergy 5 [facility] (1 source) Codeine Drug Allergy 5 [facility] Medications Current Medications Medication Drug Class(es) [...] Comment on above: Take 1 capsule by [facility] four times daily for 5 days. [...] tablet d aily. Take 1 capsule by [facility] two times a week. ciprofloxacin 250 mg oral tablet (2 sources) Quinolone Antimicrobial Start: 07-11-19 End: 07-18-19 take 1 tablet by mouth twice daily ciprofloxacin HCl (CIPRO) 250 mg tablet Take 1 tablet by mouth twice daily for 7 days. 14 tablet 0 07/10/2021 07/17/2021 Active Comment on above: Take 1 tablet by [facility] twice daily for 7 days. enteric contrast [...] th daily at bedtime. For cholesterol per [facility]. bifidobacterium animalis [id number] unt / lactobacillus acidophilus [id number] unt oral capsule (2 sources) Start: 02-25-20 [...] Active docusate sodium 50 mg / sennosides, intermediate 8.6 mg oral tablet (5 sources) Start: [...] mouth at 11pm the night before surgery. Manley-3 350 MG Oral Capsule Delayed Release (2 sources) Start: 02-24-2017 Manley-3 350 MG Oral Capsule Delayed Release Quantity: [...] March 04, 2018 4:37pm polyethylene glycol 3350 72978 mg powder for oral solution (20 sources) Osmotic Laxative Start: 01-06-2022 End: 01-07-2022 polyethylene glycol 3350 (MIRALAX, GLYCOLAX) 17 gram/dose powder Use as directed for Miralax / Gatorade Bowel Prep Kit 238 g 0 01/06/2022 01/07/2022 End: 01-28-2022 polyethylene glycol 3350 (AL RALAX, GLYCOLAX) 17 gram packet Take 17 [...] Gatorade Bowel Prep Kit polyethylene glycol 3350 591935 mg / potassium chloride 2970 mg / sodium bicarbonate 6740 mg / sodium chloride 5860 mg / sodium sulfate 18866 mg powder for oral solution (11 sources) [...] on above: Take 1 capsule by [facility] once daily. 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, [address] Calcium [Mass/Vol] 8.4 mg/dL Normal 7.6-11.0 [facility] Comment on above: Performed By: #### L 500.2500, L100.0100 #### [facility] [address] [place], [address] Chloride [Moles/Vol] 104 mmol/L Normal 98-108 [facility] Comment on above: Performed By: #### L 500.2500, L100.0100 #### [facility] [address] [place], [address] CO2 [Moles/Vol] 21.5 mmol/L Normal 21.0-32.0 [facility] Comment on above: Performed By: #### L 500.2500, L100.0100 #### [facility] [address] [place], [address] Creatinine [Mass/Vol] 1.14 mg/dL Normal 0.70-1.20 [facility] Comment on above: Performed By: #### L 500.2500, L100.0100 #### [facility] [address] [place], [address] ECRCL 59.08 ml/min Normal 50-250 [facility] Comment on above: Performed By: #### L 500.2500, L100.0100 #### [facility] [address] [place], [address] GAP 12 Normal 5-15 [facility] Comment on above: Performed By: #### L 500.2500, L100.0100 #### [facility] [address] [place], [address] GFR/1.73 sq M.predicted among non-blacks MDRD (S/P/Bld) [Vol rate/Area] 67 mL/min/{1.73_m2} Normal >60 [facility] Comment on above: Result Comment: mL/m in/1.73m2 CKD-EPI Creatinine Equation (2020) Performed By: #### L 500.2500, L100.0100 #### [facility] [address] [place], [address] Glucose [Mass/Vol] 170 mg/dL High 70-99 [facility] Comment on above: Performed By: #### L 500.2500, L100.0100 #### [facility] [address] [place], [address] Potassium [Moles/Vol] 4.1 mmol/L Normal 3.3-5.1 [facility] Comment on above: Performed By: #### L 500.2500, L100.0100 #### [facility] [address] [place], [address] Sodium [Moles/Vol] 138 mmol/L Normal 133-145 [facility] Comment on above: Performed By: #### L 500.2500, L100.0100 #### [facility] [address] [place], [address] Urea nitrogen [Mass/Vol] 14 mg/dL Normal 4-19 [facility] Comment on above: Performed By: #### L 500.2500, L100.0100 #### [facility] [address] [place], [address] CBC W/Diff, Automatedon 11-0 -2024 Absolute Lymph 0.87 X10 3/uL Normal 0.83-4.51 [facility] Comment on above: Performed By: #### L 500.2500, L100.0100 #### [facility] [address] [place], [address] Absolute Neut 11.0 X10 3/uL High 2.0-7.7 [facility] Comment on above: Performed By: #### L 500.2500, L100.0100 #### [facility] [address] [place], [address] Basophils/100 WBC (Bld) 0.2 % Normal 0-1 [facility] Comment on above: Performed By: #### L 500.2500, L100.0100 #### [facility] [address] [place], [address] Eosinophils/100 WBC (Bld) 0.0 % Normal 0-5 [facility] Comment on above: Performed By: #### L 500.2500, L100.0100 #### [facility] [address] [place], [address] Erythrocyte distribution width (RBC) [Ratio] 14.2 % Normal 11.6-14.6 [facility] Comment on above: Performed By: #### L 500.2500, L100.0100 #### [facility] [address] [place], [address] Hematocrit (Bld) [Volume fraction] 37.2 % Low 40-54 [facility] Comment on above: Performed By: #### L 500.2500, L100.0100 #### [facility] [address] [place], [address] Hemoglobin (Bld) [Mass/Vol] 12.3 g/dL Low 13.0-16.5 [facility] Comment on above: Performed By: #### L 500.2500, L100.0100 #### [facility] [address] [place], [address] IG% 0.500 Normal 0.0-0.9 [facility] Comment on above: Result Comment: IG% - Immature Granulocytes (promyelocytes, myelocytes and metamyelocytes) > 1% indicates that a LEFT SHIFT is Present. Performed By: #### L 500.2500, L100.0100 #### [facility] [address] [place], [address] Lymphocytes/100 WBC (Bld) 6.8 % Low 19-41 [facility] Comment on above: Performed By: #### L 500.2500, L100.0100 #### [facility] [address] [place], [address] MCH (RBC) [Entitic mass] 31.3 pg Normal 27.0-32.0 [facility] Comment on above: Performed By: #### L 500.2500, L100.0100 #### [facility] [address] [place], [address] MCHC (RBC) [Mass/Vol] 33.1 g/dL Normal 32-36 [facility] Comment on above: Performed By: #### L 500.2500, L100.0100 #### [facility] [address] [place], [address] MCV (RBC) [Entitic vol] 94.7 fL High 80-94 [facility] Comment on above: Performed By: #### L 500.2500, L100.0100 #### [facility] [address] [place], [address] Monocytes/100 WBC (Bld) 7.4 % Normal 0-10 [facility] Comment on above: Performed By: #### L 500.2500, L100.0100 #### [facility] [address] [place], [address] Neutrophils/100 WBC (Bld) 85.1 % High 47-70 [facility] Comment on above: Performed By: #### L 500.2500, L100.0100 #### [facility] [address] [place], [address] Nucleated RBC (Bld) [#/Vol] 0 10*3/uL Normal 0-5 [facility] Comment on above: Performed By: #### L 500.2500, L100.0100 #### [facility] [address] [place], [address] Platelet mean volume (Bld) [Entitic vol] 10.6 fL Normal 6.2-12.0 [facility] Comment on above: Performed By: #### L 500.2500, L100.0100 #### [facility] [address] [place], [address] Platelets (Bld) [#/Vol] 203 10*3/uL Normal 150-450 [facility] Comment on above: Performed By: #### L 500.2500, L100.0100 #### [facility] [address] [place], [address] RBC (Bld) [#/Vol] 3.93 10*6/uL Low 4.6-6.2 [facility] Comment on above: Performed By: #### L 500.2500, L100.0100 #### [facility] [address] [place], [address] RDW SD 49.3 fl High 35.1-43.9 [facility] Comment on above: Performed By: #### L 500.2500, L100.0100 #### [facility] [address] [place], [address] WBC (Bld) [#/Vol] 12.9 10*3/uL High 4.4-11.0 [facility] Comment on above: Performed By: #### L 500.2500, L100.0100 #### [facility] [address] [place], [address] Discharge Instructionon 11-0 Discharge Instruction [facility] Medical Records Department [address] [place] [address] Instructions for Home/Discharge Instructions 01/03/25 1313 MR#: [id number] Acct: [id number] Name: JAI LUNA Rep #: [id number] : 1950 74 From: Zaira CAMACHO PCP: [...] MD; Dr. Cherelle Christian MD Signed Normal [facility] Bedside Glucoseon 01-02-2025 FINGERSTICK GLU 69 mg/dL Low 74-106 [facility] Comment on above: Result Comment: ZENA FAUST OF PATIENT CARE PER NURSING PROTOCOL Performed By: #### L 501.080 #### [facility] [address] [place], [address] Consultation - Hospitaliston 01-02-2025 Consultation - Hospitalist [facility] Medical Records Department [address] [place] [address] Consultation - Hospitalist 01/02/25 1835 MR#: [id number] Acct: [id number] Name: JAI LUNA Rep #: [id number] : 1950 74 From: Ahsan Younger DO PCP: Dr. Katy Faust MD Status:ADM RUDDY [facility] Plan Assessment/Plan (1) Spinal stenosis of lumbar region with neurogenic claudication: PLAN: Plan Patient is a 74-year-old male who presented to [facility] on 01/02/25 for planned L3- 5 laminectomy [...] vascular disease, hypertension, hyperlipidemia ??? Follows with [place] [facility]. History of CABG in 1999 and [...] is a 74 M who presented to [facility] on 01/02/2025 for planned orthopedic procedure. Medicine [...] denies any other acute concerns currently. [facility] Medical History Leg cramps Obesity (BMI 30.0-34.9) [...] 12/22/16) Essential hypertension Atherosclerotic heart disease of [place] coronary artery without angina pectoris Hypoacusis Dyslipidemia [...] Carotid artery stenosis Surgical History ... Normal [facility] Lumbar Spine 2 or 3 Viewson 01-02-2025 Lumbar Spine 2 or 3 Views [facility] Imaging Services [address] [place] [address] Lumbar Spine 2 or 3 Views MR#: [id number] Acct: [id number] Name: JAI LUNA Rep #: [id number] : 1950 M 74 From: Armand Miller MD PCP: Dr. Katy Faust MD Status: ADM RUDDY Study: Lumbar Spine 2 or 3 Views Date of Exam: Exam# [id number] Ordering Dr: Howard Siddiqui MD EXAM: XR [...] operative note for further details. Reading Location: [facility] CC: Dr. Howard Siddiqui MD; Dr. Katy Faust MD Towing Pilot: Signed [place] MR/POSTOP.ANEon 01-02-2025 MR/POSTOP.[facility] Medical Records Department [address] [place] [address] Anesthesia Postop Eval I 01/02/25 1457 MR#: [id number] Acct: [id number] Name: JAI LUNA Rep #: [id number] : 1950 74 From: Michael Kat CRNA PCP: Dr. Katy Faust MD Status:REG SDC Y Race: C Location: [place] [address] Anesthesia: Postop Eval I Current Vital Signs [...] Kat CRNA Cosigner Signature: Date CC: Signed [place] MR/[id number] 01-02-2025 MR/POSTOPAN2 [facility] Medical Records Department [address] [place] [address] Anesthesia Postop Eval II 01/02/25 1556 MR#: [id number] Acct: [id number] Name: JAI LUNA Rep #: [id number] : 1950 74 From: Nehal Villagran OUTBOUND SALES AGENT PCP: Dr. Katy Faust MD Status:REG SDC Y Race: C Location: [place] [address] Anesthesia Postop Eval I Sum Postop Eval Completion status Anesthesia document: Postop Eval 1 completed: Yes Anesthesia Postop Eval I Summary Anesthesia Postop Eval I Summary: Anesthesia Postop Eval I: Assessment Summary Airway patent Yes 01/02/25 14:58 OUTBOUND SALES AGENT.PKEL Spontaneous unlabored Yes 01/02/25 14:58 OUTBOUND SALES AGENT.PKEL respirations Mental status Awake,Calm 01/02/25 14:58 OUTBOUND SALES AGENT.PKEL nausea No 01/02/25 14:58 OUTBOUND SALES AGENT.PKEL Vomiting No 01/02/25 14:58 OUTBOUND SALES AGENT.PKEL Anesthesia Postop Eval I: Fluid Summary Crystalloid volume administer 1,700 01/02/25 14:58 OUTBOUND SALES AGENT.PKEL (ml) Colloids volume administered ( ml) Blood Product volume administered (ml) Total IV fluid infused 1,700 01/02/25 14:58 OUTBOUND SALES AGENT.PKEL Anesthesia Postop Eval I: Summary Notes Anesthesia Complication No 01/02/25 14:58 OUTBOUND SALES AGENT.PKEL Anesthesia Complication Comment: Post-operative progress note Anesthesia: Postop Eval II Evaluation Mental status: Awake and Calm Pain Level: 4 nausea: No Vomiting: No Complications Anesthesia Complication: No 01/02/25 1556 Date Nehal Villagran OUTBOUND SALES AGENT Cosigner Signature: Date CC: Signed Normal [facility] Operative Reporton 5 Operative Report [facility] Medical Records Department [address] [place] [address] Operative Report 01/02/25 1449 MR#: [id number] Acct: [id number] Name: LUNAJAI M Rep #: [id number] : 1950 74 From: Howard Siddiqui MD PCP: Dr. Katy Faust MD Status:[facility] Location: [place] [address]- Procedures Musculoskeletal 20xxx-29xxx: Other Procedure See Report Operative Report (Standard) Operative Information Date of Procedure: 01/02/25 Pre-Operative Diagnosis: L3-5 stenosis with neurogenic claudication Post-Operative Diagnosis: Same Surgery/Procedure Performed: L3-5 laminectomy, partial facetectomy, foraminotomy, decompression preparation room manager: Yes Tobacco Prevention Health Educator: Zaira De Jesus Tasks completed by rn first assistant: Closing, Removing tissue, Hemostasis: Electrocautery and [...] foraminotomy Decompression of L5 nerve root CPT 03180 Decompression of L4 nerve root CPT 84925 Decompression of L3 nerve root CPT 20033 Attending Surgeon: Dr. Howard Siddiqui Estimated blood [...] of the pars was also identified. A [place] was then placed under the inferior edge of the lamina and a C-arm lateral view was repeated. The level was confirmed to be the L3-4 interspace. Exposure of L3-5 interspaces were then completed. A Raygoza retractor of appropriate depth was then placed to provide retraction throughout the remainder of the surgery. A bone cutter was used to remove the spinous process. [employer] bone scalpel was then utilized to first [...] both sides. (more content not included)... Normal [facility] CNOVon 12-26-2024 CNOV Office Visit (INTMWS ) JAI LUNA ([id number]) 1950 M Date Time Provider Department 12/26/24 7:00 AM SRINIVASAN DA SILVAMWS During your visit today, we recorded the following information about you: Temperature Pulse Respiration Blood pressure 98.5 degrees 58/minute 16/minute 139/71 Weight 88.4 kg Srinivasan Da Silva APRN.[facility] 12/26/2024 7:44 AM Signed Subjective Patient ID: Chaka is a 74 year old male who presents for Pre-Op Exam. HPI Jai Luna is a 74-year-old male with CAD s/p CABG, coronary stents, hyperlipidemia and lumbar spinal stenosis, presenting for preoperative evaluation prior to lumbar decompression surgery. Preoperative Evaluation: - Scheduled for back surgery on 06/03 at [facility] by Dr. Siddiqui to address spinal stenosis in the lower spine. - Has seen [facility] for pre-surgery evaluation. He has [...] lumbar spine surgery scheduled on the at [facility] with Dr. Siddiqui. - No active infection, [...] perspective. CBC and CMP was completed at [facility] on December 20. - Advised to call Dr. Siddiqui's office the day before surgery to confirm surgery time if he does not receive a call with his surgery time. 2. Spinal stenosis of lumbar region with neurogenic claudication (M48.062) - Chronic lumbar spinal stenosis with neurogenic claudication affecting left leg; surgery planned to address this. 3. Coronary artery disease involving [place] coronary artery of [place] heart without angina pectoris (I25.10) 4. S/P CA (more content not included)... Normal [facility] Orthopedic Visit Reporton Orthopedic Visit Report [facility] Orthoped[facility] [address] [address] OFFICE VISIT Date of Service: 12/22/24 MR#: [id number] Acct: [id number] Name: JAI LUNA Rep #: [id number] : 1950 Provider: Dr. Howard Siddiqui MD Age/Sex: 74/M Location: [facility] Status: Signed Intake Vital Signs 10/13/24 08:58 [...] 12/22/16) Essential hypertension Atherosclerotic heart disease of [place] coronary artery without angina pectoris Hypoacusis Dyslipidemia [...] by me, Dr. Howard Siddiqui MD 12/22/24 0913. Part of today???s visit was documented by [...] recommended by a stoma nurse at the [facility]. 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 He underwent surgery to remove the clots and was initially treated w (more content not included)... Normal [facility] MRSA/SAID NASAL SCREENon MRSA+SAID SCRN Reason for Exam: preop MRSA MRSA Negative S. AUREUS S. aureus Negative Normal [facility] Comment on above: Performed By: #### M 100.651, L501.5200, L100.0100, L501.9985, BTSPAT, L500.2500 ####[facility] [address] [place], [place], [id number] Basic Metabolic Profile (BMP )on 12-20-2024 BUN/CRE 14.7 RATIO Normal 12-18 [facility] Comment on above: Performed By: #### M 100.651, L501.5200, L100.0100, L501.9985, BTSPAT, L500.2500 ####[facility] [address] [place], [place], [id number]) Calcium [Mass/Vol] 8.9 mg/dL Normal 7.6-11.0 [facility] Comment on above: Performed By: #### M 100.651, L501.5200, L100.0100, L501.9985, BTSPAT, L500.2500 ####[facility] [address] [place], [address] Chloride [Moles/Vol] 106 mmol/L Normal 98-108 [facility] Comment on above: Performed By: #### M 100.651, L501.5200, L100.0100, L501.9985, BTSPAT, L500.2500 ####[facility] [address] [place], [address] CO2 [Moles/Vol] 20.5 mmol/L Low 21.0-32.0 [facility] Comment on above: Performed By: #### M 100.651, L501.5200, L100.0100, L501.9985, BTSPAT, L500.2500 ####[facility] [address] [place], [address] Creatinine [Mass/Vol] 1.25 mg/dL High 0.70-1.20 [facility] Comment on above: Performed By: #### M 100.651, L501.5200, L100.0100, L501.9985, BTSPAT, L500.2500 ####[facility] [address] [place], [address] GAP 11 Normal 5-15 [facility] Comment on above: Performed By: #### M 100.651, L501.5200, L100.0100, L501.9985, BTSPAT, L500.2500 ####[facility] [address] [place], [address] GFR/1.73 sq M.predicted among non-blacks MDRD (S/P/Bld) [Vol rate/Area] 60 mL/min/{1.73_m2} Normal >60 [facility] Comment on above: Result Comment: mL/m in/1.73m2 CKD-EPI Creatinine Equation (2020) Performed By: #### M 100.651, L501.5200, L100.0100, L501.9985, BTSPAT, L500.2500 ####[facility] [address] [place], [address] Glucose [Mass/Vol] 100 mg/dL High 70-99 [facility] Comment on above: Performed By: #### M 100.651, L501.5200, L100.0100, L501.9985, BTSPAT, L500.2500 ####[facility] [address] [place], [address] Potassium [Moles/Vol] 4.2 mmol/L Normal 3.3-5.1 [facility] Comment on above: Performed By: #### M 100.651, L501.5200, L100.0100, L501.9985, BTSPAT, L500.2500 ####[facility] [address] [place], [address] Sodium [Moles/Vol] 138 mmol/L Normal 133-145 [facility] Comment on above: Performed By: #### M 100.651, L501.5200, L100.0100, L501.9985, BTSPAT, L500.2500 ####[facility] [address] [place], [address] Urea nitrogen [Mass/Vol] 18 mg/dL Normal 4-19 [facility] Comment on above: Performed By: #### M 100.651, L501.5200, L100.0100, L501.9985, BTSPAT, L500.2500 ####[facility] [address] [place], [address] CBC W/Diff, Automatedon 10-2 Absolute Lymph 1.88 X10 3/uL Normal 0.83-4.51 [facility] Comment on above: Performed By: #### M 100.651, L501.5200, L100.0100, L501.9985, BTSPAT, L500.2500 ####[facility] [address] [place], [address] Absolute Neut 4.4 X10 3/uL Normal 2.0-7.7 [facility] Comment on above: Performed By: #### M 100.651, L501.5200, L100.0100, L501.9985, BTSPAT, L500.2500 ####[facility] [address] [place], [address] Basophils/100 WBC (Bld) 0.9 % Normal 0-1 [facility] Comment on above: Performed By: #### M 100.651, L501.5200, L100.0100, L501.9985, BTSPAT, L500.2500 ####[facility] [address] [place], [address] Eosinophils/100 WBC (Bld) 4.2 % Normal 0-5 [facility] Comment on above: Performed By: #### M 100.651, L501.5200, L100.0100, L501.9985, BTSPAT, L500.2500 ####[facility] [address] [place], [address] Erythrocyte distribution width (RBC) [Ratio] 14.0 % Normal 11.6-14.6 [facility] Comment on above: Performed By: #### M 100.651, L501.5200, L100.0100, L501.9985, BTSPAT, L500.2500 ####[facility] [address] [place], [address] Hematocrit (Bld) [Volume fraction] 42.6 % Normal 40-54 [facility] Comment on above: Performed By: #### M 100.651, L501.5200, L100.0100, L501.9985, BTSPAT, L500.2500 ####[facility] [address] [place], [address] Hemoglobin (Bld) [Mass/Vol] 14.3 g/dL Normal 13.0-16.5 [facility] Comment on above: Performed By: #### M 100.651, L501.5200, L100.0100, L501.9985, BTSPAT, L500.2500 ####[facility] [address] [place], [address] IG% 0.400 Normal 0.0-0.9 [facility] Comment on above: Result Comment: IG% - Immature Granulocytes (promyelocytes, myelocytes and metamyelocytes) > 1% indicates that a LEFT SHIFT is Present. Performed By: #### M 100.651, L501.5200, L100.0100, L501.9985, BTSPAT, L500.2500 ####[facility] [address] [place], [address] Lymphocytes/100 WBC (Bld) 24.8 % Normal 19-41 [facility] Comment on above: Performed By: #### M 100.651, L501.5200, L100.0100, L501.9985, BTSPAT, L500.2500 ####[facility] [address] [place], [address] MCH (RBC) [Entitic mass] 31.2 pg Normal 27.0-32.0 [facility] Comment on above: Performed By: #### M 100.651, L501.5200, L100.0100, L501.9985, BTSPAT, L500.2500 ####[facility] [address] [facility] [place], [address] MCHC (RBC) [Mass/Vol] 33.6 g/dL Normal 32-36 [facility] Comment on above: Performed By: #### M 100.651, L501.5200, L100.0100, L501.9985, BTSPAT, L500.2500 ####[facility] [address] [place], [address] MCV (RBC) [Entitic vol] 92.8 fL Normal 80-94 [facility] Comment on above: Performed By: #### M 100.651, L501.5200, L100.0100, L501.9985, BTSPAT, L500.2500 ####[facility] [address] [place], [address] Monocytes/100 WBC (Bld) 11.3 % High 0-10 [facility] Comment on above: Performed By: #### M 100.651, L501.5200, L100.0100, L501.9985, BTSPAT, L500.2500 ####[facility] [address] [place], [address] Neutrophils/100 WBC (Bld) 58.4 % Normal 47-70 [facility] Comment on above: Performed By: #### M 100.651, L501.5200, L100.0100, L501.9985, BTSPAT, L500.2500 ####[facility] [address] [place], [address] Nucleated RBC (Bld) [#/Vol] 0 10*3/uL Normal 0-5 [facility] Comment on above: Performed By: #### M 100.651, L501.5200, L100.0100, L501.9985, BTSPAT, L500.2500 ####[facility] [address] [place], [address] Platelet mean volume (Bld) [Entitic vol] 10.3 fL Normal 6.2-12.0 [facility] Comment on above: Performed By: #### M 100.651, L501.5200, L100.0100, L501.9985, BTSPAT, L500.2500 ####[facility] [address] [place], [address] Platelets (Bld) [#/Vol] 229 10*3/uL Normal 150-450 [facility] Comment on above: Performed By: #### M 100.651, L501.5200, L100.0100, L501.9985, BTSPAT, L500.2500 ####[facility] [address] [place], [address] RBC (Bld) [#/Vol] 4.59 10*6/uL Low 4.6-6.2 [facility] Comment on above: Performed By: #### M 100.651, L501.5200, L100.0100, L501.9985, BTSPAT, L500.2500 ####[facility] [address] [place], [address] RDW SD 48.1 fl High 35.1-43.9 [facility] Comment on above: Performed By: #### M 100.651, L501.5200, L100.0100, L501.9985, BTSPAT, L500.2500 ####[facility] [address] [place], [address] WBC (Bld) [#/Vol] 7.6 10*3/uL Normal 4.4-11.0 [facility] Comment on above: Performed By: #### M 100.651, L501.5200, L100.0100, L501.9985, BTSPAT, L500.2500 ####[facility] [address] [place], [address] Hemoglobin A1con 12-20-2024 HbA1c (Bld) [Mass fraction] 6.1 % High <=5.6 [facility] Comment on above: Result Comment: Norm al < 5.7 % Prediabetic 5.7 - 6.4 % Diabetic >or= 6.5 % Please note range changes. Performed By: #### M 100.651, L501.5200, L100.0100, L501.9985, BTSPAT, L500.2500 ####[facility] [address] [place], [address] Magnesiumon 12-20-2024 Magnesium [Mass/Vol] 2.3 mg/dL High 1.5-2.2 [facility] Comment on above: Performed By: #### M 100.651, L501.5200, L100.0100, L501.9985, BTSPAT, L500.2500 ####[facility] [address] [place], [address] Type AND Screen - PAT ONLYon 12-20-2024 Ab SCREEN GEL Negative Normal [facility] Comment on above: Order Comment: Reaso n for Laboratory Test [id number] laminectomy Performed By: #### M 100.651, L501.5200, L100.0100, L501.9985, BTSPAT, L500.2500 ####[facility] [address] [place], [place], [address] MR/PAT.ANEon 12-19-2024 MR/PAT.ANE [facility] Medical Records Department [address] [place] [address] PAT - Anesthesia 12/19/24 1740 MR#: [id number] Acct: [id number] Name: JAI LUNA Rep #: [id number] : 1950 74 From: Dexter Wheeler MD PCP: Dr. Katy Faust MD Status:PRE [facility] [place]: C [place] [facility] Pre-Assessment Diagnosis/Proposed Procedure Planned Operative Procedure(s): Lumbar laminectomy L3-4 and L4-5 Anesthesia History Anesthesia History - medicine assistant: Anesthesia History - medicine assistant Hx Hospitalization Yes: 12/2023 cervical fusion 12/19/24 [...] take am of surgery PONV PONV - medicine assistant: PONV - medicine assistant Female No 12/19/24 10:25 HX of Motion [...] 10/13/24 08:58 Respiratory Assessment Respiratory Assessment - medicine assistant: Respiratory Tract Infection Hx - medicine assistant Hx Respiratory Tract Infection No 12/19/24 10:25 STOP Sleep Apnea STOP Sleep Apnea - medicine assistant: STOP Sleep Apnea - medicine assistant Hx Hypertension No 12/19/24 10:25 Hx Sleep [...] Tobacco Use History Tobacco Use History - medicine assistant: Tobacco Use History - medicine assistant Tobacco Use Smoking Status Former smoker 12/19/24 10:25 Hx Tobacco Use No 12/19/24 10:25 Years Smoking Packs Smoked per Day Smoking Cessation Date was No - quit smoking greater 12/19/24 10:25 within the last 15 years than 15 years ago Hx Smoking Cessation Date 02/19/00 12/19/24 10:25 Hx Smoking Cessation No 12/19/24 10:25 Counseling Hematologic Medial History Hematologic Hx - medicine assistant: Hematologic Medical Hx - shield runner Hx of Blood Transfusion Yes 12/19/24 10:25 [...] /Reproductio n History /Reproductiv e History - medicine assistant: /Reproductiv e Hx- medicine assistant Hx Now No 12/19/24 10:25 Gestational Age [...] ventricular co (more content not included)... Normal [facility] Cardiology Visit Reporton Cardiology Visit Report [facility] [address] [place], [place] [address] OFFICE VISIT Date of Service: 11/29/24 MR#: [id number] Acct: [id number] Name: JAI LUNA Rep #: [id number] : 1950 Provider: ALTAGRACIA zaidi Age/Sex: 74/M [...] abdominal area, he was lift flighted to [facility]. He then had complications for PE/DVTs. [...] from a previous echo done at the [facility] 02/13/2022. The last catheterization November 2016 [...] procedures. The stenting procedures were done at [facility] by Dr. Joshua Lloyd. He denies palpitations. [...] (%) 95 Intake Visit Reasons: Clearance visit Hone Operator Required: No Is patient in pain?: No [...] surgery scheduled for december dr. siddiqui [facility] Medical History (Updated 11/29/24 @ 11:05 by Carlos Trujillo OFFICE MACHINES WIRER, OFFICE MACHINES WIRER-C) Obesity (BMI 30.0-34.9) MRSA (methicillin resistant staph aureus) culture positive Deaf Wears hearing aid Wears glasses Cancer High cholesterol DVT (deep venous thrombosis) Injury of head and neck Loss of consciousness Gastric reflux Former smoker History of edema History of echocardiogram History of stress test Cardiology follow-up encounte (more content not included)... Normal [facility] Orthopedic Visit Reporton Orthopedic Visit Report [facility] [address] [place] [address] [address] [place] [address] OFFICE VISIT Date of Service: 10/13/24 MR#: [id number] Acct: [id number] Name: JAI LUNA Rep #: [id number] : 1950 Provider: Dr. Howard Siddiqui MD Age/Sex: 74/M Location: [facility] Status: Signed Intake Vital Signs 04/25/24 10:35 [...] 12/22/16) Essential hypertension Atherosclerotic heart disease of [place] coronary artery without angina pectoris Hypoacusis Dyslipidemia [...] treated s (more content not included)... Normal [facility] Arterial Doppler ultrasound reportOrdered By: Raghu Reynolds on 10-10-2024 Study report [facility] [address] [place] [address] US Art Duplex Unilat UP Extrem 10/10/24 0807 MR#: [id number] Acct: [id number] Name: JAI LUNA Rep #:[id number] : 1950 74 From: Raghu Kwan Attending [...] Dictated: 10/10/24 0807 Date Transcribed: 10/10/24 1343 Towing Pilot: Signed [facility] Work Phone: Arterial study reportOrdered By: Raghu Reynolds on 10-10-2024 Noninvasive arteriosclerosis study report [facility] [address] [place] [address] Upper Extremity Arterial Study 10/10/24825 MR#: [id number] Acct: [id number] Name: JAI LUNA Rep #:[id number] : 1950 74 From: Raghu Kwan Attending Dr: JANICE Bocanegra Stat us: REG CLI Ordering Dr: Naty Amato Date: Location: [facility] Sex: M C Admitted: Reason For [...] Physician: Katy Faust Performed By: Saúl Pearson, [facility] 10/10/24 1341 Date _ Rgahu Reynolds MD CC: JANICE Bocanegra; Dr. Katy Faust MD ~ Date Dictated: 10/10/24825 Date Transcribed: 10/10/24 134 Towing Pilot: Signed [facility] Work Phone: US Art Duplex Unilat UP [facility] 10-10-2024 US Art Duplex Unilat UP Extrem [facility] [address] [place] [address] US Art Duplex Unilat UP Extrem 10/10/24 08 MR#: [id number] Acct: [id number] Name: JAI LUNA Rep #: [id number] : 1950 74 From: Raghu Reynolds MD [...] 10/10/24 1343 Date Raghu Reynolds MD CC: JANICE Bocanegra; Dr. Katy Faust MD Date Dictated: 10/10/24 08 Date Transcribed: 10/10/24 134 Towing Pilot: Signed Normal [facility] Upper Extremity Arterial Diogo dyon 10-10-2024 Upper Extremity Arterial Study [facility] [address] [place] [address] Upper Extremity Arterial Study 10/10/24 0826 MR#: [id number] Acct: [id number] Name: JAI LUNA Rep #: [id number] : 1950 74 From: Raghu Reynolds MD Attending Dr: JANICE Bocanegra Status: REG CLI Ordering Dr: Naty Amato Date: 10/10/24 Location: [facility] Sex: M C Admitted: Reason For [...] Date Dictated: 10/10/24825 Date Transcribed: 10/10/24 134 Towing Pilot: Signed Normal [facility] PT D/C Summary (1)on 025 PT D/C Summary (1) [facility] Physical Therapy [facility] [address] [place] [address] [address] [place] [address] / REHABILITATION SERVICES DISCHARGE SUMMARY MR#: [id number] Acct: [id number] Name: JAI LUNA Rep #: [id number] : 1950 74 From: Vinh Sweeney PT, ATC Referring Dr.: Dr. Howard Siddiqui MD Status: REG RCR Insurance: MEDICARE PART A B [facility] Discharge Summary D/C summary: It has been my pleasure to treat JAI LUNA referred by Dr. Howard Siddiqui MD, with the diagnosis of Lumbar stenosis [...] please feel free to call me at [phone]. Thank you for the referral of this patient. Sincerely, Vinh Sweeney, PT, ATC Balance/Gait/Function al tests Balance/Special Test Scores Oswestry Low Back Score: 6 Improvement % Improvement: 70 09/22/24 0903 CC: Dr. Howard Siddiqui MD; Dr. Katy Faust MD [facility] Signed Normal [facility] Spine Thoracic W/WO Contrast on 09-20-2024 Spine Thoracic W/WO Contrast [facility] Imaging Services [address] [place] [address]05801 Spine Thoracic W/WO Contrast MR#: [id number] Acct: [id number] Name: JAI LUNA Rep #: [id number] : 1950 74 From: Vikash Hoffman MD PCP: Dr. Katy Faust MD Status: REG CLI Study: Spine Thoracic W/WO Contrast Date of Exam: Exam# [id number] Ordering Dr: Howard Siddiqui MD PROCEDURE: SPINE [...] No evidence of acute process. Reading Location: [facility] CC: Dr. Howard Siddiqui MD; Dr. Katy Faust MD Towing Pilot: Signed Normal [facility] Orthopedic Visit Reporton Orthopedic Visit Report [facility] [address] [place] [address] OFFICE VISIT Date of Service: 09/13/24 MR#: [id number] Acct: [id number] Name: JAI LUNA Rep #: [id number] : 1950 Provider: Dr. Howard Siddiqui MD Age/Sex: 74/M Location: [facility] Status: Signed Intake Vital Signs 04/25/24 10:35 [...] 12/22/16) Essential hypertension Atherosclerotic heart disease of [place] coronary artery without angina pectoris Hypoacusis Dyslipidemia [...] by me, Dr. Howard Siddiqui MD 09/13/24 7366. Part of today???s visit was documented by Radha MUSTAFA and Izzy Castro RN, acting as scribe. JAI LUNA is a 74 year old M here today for pain that he has been having underneath his left scapula that started 6 weeks ago. He thought at first it was a strained muscle but it has worsened over time. He did see Norm Alvarez an assistant office manager of his PCP. She did prescribed him [...] male pr (more content not included)... Normal [facility] Thoracic Spine 3 Viewson Thoracic Spine 3 Views [facility] Imaging Services [address] [place] [address] Thoracic Spine 3 Views MR#: [id number] Acct: [id number] Name: JAI LUNA Rep #: [id number] : 1950 M 74 From: Enedina Mitchell nd, MD PCP: Dr. Katy Faust MD Status: DEP AMB Study: Thoracic Spine 3 Views Date of Exam: 09/13/24 Exam# [id number] Ordering Dr: Zaira De Jesus PROCEDURE: THORACIC [...] finding. Chronic findings as described. Reading Location: [id number] CC: JANICE Barakat; Dr. Katy Faust MD Towing Pilot: Signed Normal [facility] Inital Evaluation (1) - PTon 08-29-2024 Inital Evaluation (1) - PT [facility] Physical [facility] [address] [place] [address] / REHABILITATION SERVICES INITIAL EVALUATION MR#: [id number] Acct: [id number] Name: JAI LUNA Rep #: [id number] : 1950 74 From: Vinh Sweeney PT, [...] to be FAXED BACK to us at [phone] for Medicare purposes. For Medicare only, by signing this I certify the plan of care. Please let me know if there are questions or concerns regarding this plan of care. Physician Signature: Date : 08/29/24 1124 CC: Dr. Howard Siddiqui MD; Dr. Katy Faust MD [facility] Signed Normal [facility] MR/BMS.BVSon 08-22-2024 MR/BMS.BVS [facility] [address] [place], [place] [address]. [address] [place] [address] OFFICE VISIT Date of Service: 08/23/24 MR#: [id number] Acct: [id number] Name: JAI LUNA Rep #: [id number] : 1950 Provider: JANICE Bocanegra Age/Sex: 74/M Location: [facility] Status: Signed Intake Vital Signs 04/25/24 10:35 [...] you fallen in the past year?: No [facility] MRSA (methicillin resistant staph aureus) [...] 12/22/16) Essential hypertension Atherosclerotic heart disease of [place] coronary artery without angina pectoris Hypoacusis Dyslipidemia [...] thyroid diseas (more content not included)... Normal [facility] CNOVon 08-15-2024 CNOV Office Visit (INTMWS ) JEREMYJAI M ([id number]) 1950 M Date Time Provider Department 08/15/24 3:20 PM NORM PARKER INTMWS During your visit today, we recorded the following information about you: Pulse Blood pressure Weight 62/minute 132/70 87.3 kg Norm Parker APRN.FURNITURE INSPECTOR 08/15/2024 4:07 PM Signed SUBJECTIVE Jai Luna [...] ([facility]) - 07/21/2022 Pulmonary Embolism and Infarction ([facility]) - 03/02/2022 Pulmonary Embolism ([facility]) - 02/13/2022 Hypokalemia - 02/10/2022 Urinary Retention - [address] ([facility]) - 01/28/2022 Rectal Cancer ([facility]) - 01/27/2022 Rectal Malignant Neoplasm ([facility]) - 05/29/2021 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 Musculoske (more content not included)... Normal [facility] Arterial study reportOrdered By: Raghu Reynolds on 08-03-2024 Noninvasive arteriosclerosis study report [facility] [address] [place] [address] Upper Extremity Arterial Study 08/01/24 0849 MR#: [id number] Acct: [id number] Name: JEREMYJAI M Rep #:[id number] : 1950 74 From: Raghu Kwan Attending [...] Dictated: 08/01/24 0849 Date Transcribed: 08/03/24 1039 Towing Pilot: Signed [facility] Work Phone: Upper Extremity Arterial Diogo dyshruti 08-01-2024 Upper Extremity Arterial Study [facility] [place] [address] Upper Extremity Arterial Study 08/01/24 0849 MR#: [id number] Acct: [id number] Name: JAI LUNA Rep #: [id number] : 1950 74 From: Raghu Reynolds MD [...] Date Dictated: 08/01/24 0849 Date Transcribed: 08/03/241038 Towing Pilot: Signed [place] CNNURSEon 07-31-2024 CNNURSE Nurse Visit (CORSMN) JAI LUNA ([id number]) 1950 M Date Time Provider Department 07/31/24 [...] 45 minutes TRAVIS RobbinsN RN CWOCN [facility] nursing pager [phone] (M-F 7a-4p, Sat, Sun, Holiday 7a-3p) Allergies As of Date: 07/31/2024 Noted Allergy Reaction CAT DANDER 02/27/2022 14 - Other: See Comments CLINDAMYCIN 03/28/2021 8 - GI Upset CODEINE 06/20/2007 8 - GI Upset Date Reviewed: 07/05/2024 Reviewed by: Norm Parker APRN.FURNITURE INSPECTOR - Fully Assessed Primary Visit Diagnosis:Attention to [...] embolism [Z86.711] 09/22/2023 PVD (peripheral vascular disease) ([facility]) [I73.9] 09/22/2023 History of DVT (deep vein thrombosis) [Z86.718] 09/22/2023 Encounter Status:Closed by LEONARDO VILLAREAL on 07/31/24 [facility] CNP[facility] Telephone (CORSMN) JAI LUNA ([id number]) 1950 M Date Time Provider Department 07/18/24 Ramiro CHEUNG During your visit today, we recorded the following information about you: [facility], Jeyson Jackson 07/18/2024 11:46 AM Signed Jai Luna [phone], checking the status of new order being sent to [facility] [phone], fax [phone]. Praveena Duran, RN 07/18/2024 12:47 PM Signed WO nursing returned patient message regarding: Pt needs an updated supply form faxed to [facility]. Left Message: No- spoke directly to pt Information/Recommend ations provided regarding: Updated supply form faxed to [facility] as requested. Fax confirmation received. All WO Nursing needs addressed. Time spent: 15 minutes TRAVIS HoffmanN, RN, CWOCN For non-emergent WO Nursing patient care needs - Please place a consult via Epic under "ostomy". WOC Nurse Available Hours: M-F: [phone]; Weekends AND Holidays: [phone] For emergent WO Nursing patient care needs - Page #[phone], during available hours only. Allergies As of [...] Encounter Status:Closed by JEYSON ELKINS on 07/18/24 [facility] 07-17-2024 [facility] (CORJAMEEN) JEREMYJAI Sevilla ([id number]) 1950 M Date Time Provider Department 07/17/24 8:15 AM [facility] EMIGDIO During your visit today, we recorded the following information about you: Praveena Duran RN 07/18/2024 12:44 PM Addendum [facility] Nursing Consult Topic: [facility] Consultation Note Outcome: Pt to A30 for appointment with [facility] Nursing. He has an established ileostomy for several years. He is here today with complaints of peristomal ulcer and pain. We discussed switching from a flat to a convex pouching system. Pt agreed with this. He has an established relationship with [employer] for supplies. If he likes the new pouch he can order it from [employer]. I provided him with x4 sets of samples. Next Scheduled Visit: 2 week for f/u with [facility] nursing to assess peristomal ulcer and new [...] [employer] SurFit Natura Durahesive flat cut-to-fit flange. [place] CearRing. Drainable pouch. Wear Time Goal: 3 days Time Increment: 1 hour SCOTTIE Hoffman, RN, CWOCN For non-emergent [facility] Nursing patient care needs - Please place a consult via Epic under "ostomy". WO Nurse Available Hours: M-F: [phone]; Weekends AND Holidays: [phone] For emergent WO Nursing patient care needs - Page #[phone], during available hours only. Praveena Duran RN 07/18/2024 12:41 [place] [address] Patient: Jai Luna Patient Address: [address] [place] [address] Preferred Gender: male Date of : 1950 Type of Stoma: Loop Ileostomy Diagnosis: Ileostomy Status Z93.2 OSTOMY SUPPLY ORDER FORM Pouch: ConvaTec: 1 ?" Natura + Drainable pouch, Transparent #[id number] 30 day use - 2 Boxes Wafer: ConvaTec: Hailey-Fit Natura 1 3/" Flat Durahesive # [id number] 30 day use - 2 Boxes Moldable Ring: [place] CeraRing Regular # [id number] 30 day use - 2 Boxes Refills: 11 Attending Physician: Dr. Cheung For immediate authorization, please contact the physician?s office. SIGNATURE: Praveena Duran RN PATIENT NAME: Jai Luna DATE: July 18, 2024 TIME: 12:38 PM CONTACT #: [phone] Allergies As of Date: 07/17/2024 Noted Allergy Reaction CAT DANDER 02/27/2022 14 - Other: See Comments CLINDAMYCIN 03/28/2021 8 - GI Upset CODEINE 06/20/2007 8 - GI Upset Date Reviewed: 07/05/2024 Reviewed by: Norm Parker APRN.FURNITURE INSPECTOR - Fully Assessed Primary Visit Diagnosis:Attention to [...] [M54.12] 04/30/2021 (more content not included)... Normal [facility] Orthopedic Visit Reporton Orthopedic Visit Report [facility] [address] [place] [address] OFFICE VISIT Date of Service: 07/06/24 MR#: [id number] Acct: [id number] Name: JAI LUNA Rep #: [id number] : 1950 Provider: Dr. Howard Siddiqui MD Age/Sex: 74/M Location: [facility] Status: Signed Intake Vital Signs 04/25/24 10:35 [...] 12/22/16) Essential hypertension Atherosclerotic heart disease of [place] coronary artery without angina pectoris Hypoacusis Dyslipidemia [...] He has an appointment on 07/17/24 in [place] for an evaluation and possible surgery. 04/21/24: [...] along with (more content not included)... Normal [facility] CNOVon 07-05-2024 OV Office Visit (INTMWS ) JAI LUNA ([id number]) 1950 M Date Time Provider Department 07/05/24 8:00 AM NORM PARKER During your visit today, we recorded the following information about you: Pulse Blood pressure Weight 75/minute 138/80 86.3 kg Norm Parker APRN.FURNITURE INSPECTOR 07/05/2024 9:18 AM Signed SUBJECTIVE Jai Luna [...] of Proximal Vein of Left Lower Extremity ([facility]) - 07/21/2022 Pulmonary Embolism and Infarction ([facility]) - 03/02/2022 Pulmonary Embolism ([facility]) - 02/13/2022 Hypokalemia - 02/10/2022 Urinary Retention - [address] ([facility]) - 01/28/2022 Rectal Cancer ([facility]) - 01/27/2022 Rectal Malignant Neoplasm ([facility]) - 05/29/2021 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 Normal [facility] 07-05-2024 [facility] Telephone (INTMWS) JAI LUNA ([id number]) 1950 M Date Time Provider Department 07/05/24 KATY FAUST INTWS During your visit today, we recorded the following information about you: Norm Parker APRN.FURNITURE INSPECTOR 07/05/2024 9:21 AM Signed Good morning, Chaka is a mutual patient who was seen in the office this morning. He has a deep ulceration to the abdomen at the base of his stoma. Stoma output is normal and color is beefy red. The ulceration is painful. Would Dr. Duong or Rabia like to get him seen [facility] or would they like to get him seen with one of the ostomy nurses [facility] due to the concern of the potential for infection in the area and interference with the stoma. Thank you, Don Carvajal LPN 07/07/2024 8:31 AM Signed Allergies As of Date: 07/05/2024 Noted Allergy Reaction CAT DANDER 02/27/2022 14 - Other: See Comments CLINDAMYCIN 03/28/2021 8 - GI Upset CODEINE 06/20/2007 8 - GI Upset Date Reviewed: 07/05/2024 Reviewed by: Norm Parker APRN.FURNITURE INSPECTOR - Fully Assessed Reason for Visit: Patient [...] Encounter Status:Closed by NORM PARKER on 07/05/24 [facility] CNOVon 05-31-2024 CNOV Office Visit (INTMWS ) JAI LUNA ([id number]) 1950 M Date Time Provider Department 05/31/24 3:40 PM KATY FAUST INTMWS During your visit today, we recorded the following information about you: Temperature Pulse Respiration Blood pressure 97 degrees 64/minute 16/minute 138/68 Weight 88.2 kg Katy Faust MD 05/31/2024 5:06 PM Signed This note was created using [employer]. Subjective Jai Luna is a 74 year [...] of seeking a second opinion from another media center specialist if symptoms persist or worsen. # [...] the date of the service which included [id number] patient care, completing clinical documentation, obtaining and/or reviewing separately obtained history, performing a medically appropriate examination, counseling and educating the patient/family/caregi carolann, and ordering medications, tests, or procedures . Katy Faust MD The patient consented to the use of meebee software for draft documentation of the visit consistent with [facility]?s Notice of Privacy Practices. Katy Faust MD 05/31/2024 5:04 PM Addendum - Contact Dr. Reed to schedule an appointment to discuss worsening symptoms and potential treatment options for lumbar stenosis. - When walkin (more content not included)... Normal [facility] Urine Cultureon 04-27-2024 URC Below infection level. Mixed Gram Positive Organisms [place] Count 1000-10,000 MIXC Mixed contaminants. Submit a new specimen if indicated. Normal [facility] Comment on above: Performed By: #### M 100.2200 ####[facility] [address] [place], [place], [address] Abdomen/Pelvis W IV Cont ONL Yon 04-25-2024 Abdomen/Pelvis W IV Cont ONLY [facility] [address] [place], [place] [address] Abdomen/Pelvis W IV Cont ONLY MR#: [id number] Acct: [id number] Name: JAI LUNA Rep #: [id number] : 1950 M 74 From: Leno hardin MD PCP: Dr. Katy Faust MD Status: REG ER Study: Abdomen/Pelvis W IV Cont ONLY Date of Exam: Exam# [id number] Ordering Dr: Tejal Bassett PROCEDURE: ABDOMEN/PELVIS W [...] use of iterative reconstruction technique). Reading Location: [id number] CC: Dr. Katy Faust MD; JANICE [place] Pilot: Signed Normal [facility] Absolute lymphocyte countOrd ered By: Tejal Bassett on 04-25-2024 Lymphocytes Auto (Unsp spec) [#/Vol] 1.89 10*3/uL 0.83-4.51 [facility] Absolute neutrophil countOrd ered By: Tejal Bassett on 04-25-2024 Neutrophils (Bld) [#/Vol] 3.2 10*3/uL 2.0-7.7 [facility] Automated lymphocyte count a s percentage of total leukocytesOrdered By: Tejal Bassett on 04-25-2024 Lymphocytes/100 WBC Auto (Unsp spec) 28.7 % 19-41 [facility] BUN/creatinine ratioOrdered By: Tejal Bassett on 04-25-2024 Urea nitrogen/Creatinine [Mass ratio] 17.3 mg/mg 10-20 [facility] Comment on above: Previous reported re sult: 18.5 RATIOEdited by: AUTOINS on 04/25/24:1504 AMENDED REPORT 04/25/24 1504 BUN/CRE previously reported as: 18.5 RATIO Basophil percentageOrdered B y: Tejal Bassett on 04-25-2024 Basophils/100 WBC (Bld) 0.6 % 0-1 [facility] Bilirubin Test strip Ql (U)O rdered By: Tejal Bassett on 04-25-2024 Bilirubin Ql (U) Negative Negative [facility] Bilirubin, totalOrdered By: Tejal Bassett on 04-25-2024 Bilirubin [Mass/Vol] 0.33 mg/dL 0.00-1.30 [facility] Comment on above: Previous reported re sult: 0.36 mg/dLEdited by: AUTOINS on 04/25/24:1504 AMENDED REPORT 04/25/24 1504 T BILI previously reported as: 0.36 mg/dL CBC W/Diff, Automatedon 04-02 Absolute Lymph 1.89 X10 3/uL Normal 0.83-4.51 [facility] Comment on above: Performed By: #### L 500.4050, L100.0100 ####[facility] [address] [place], [address] Absolute Neut 3.2 X10 3/uL Normal 2.0-7.7 [facility] Comment on above: Performed By: #### L 500.4050, L100.0100 ####[facility] [address] [place], [address] Basophils/100 WBC (Bld) 0.6 % Normal 0-1 [facility] Comment on above: Performed By: #### L 500.4050, L100.0100 ####[facility] [address] [place], [address] Eosinophils/100 WBC (Bld) 3.3 % Normal 0-5 [facility] Comment on above: Performed By: #### L 500.4050, L100.0100 ####[facility] [address] [place], [address] Erythrocyte distribution width (RBC) [Ratio] 13.3 % Normal 11.6-14.6 [facility] Comment on above: Performed By: #### L 500.4050, L100.0100 ####[facility] [address] [place], [address] Hematocrit (Bld) [Volume fraction] 42.9 % Normal 40-54 [facility] Comment on above: Performed By: #### L 500.4050, L100.0100 ####[facility] [address] [place], [address] Hemoglobin (Bld) [Mass/Vol] 14.0 g/dL Normal 13.0-16.5 [facility] Comment on above: Performed By: #### L 500.4050, L100.0100 ####[facility] [address] [place], [address] IG% 0.800 Normal 0.0-0.9 [facility] Comment on above: Result Comment: IG% - Immature Granulocytes (promyelocytes, myelocytes and metamyelocytes) > 1% indicates that a LEFT SHIFT is Present. Performed By: #### L 500.4050, L100.0100 ####[facility] [address] [place], [address] Lymphocytes/100 WBC (Bld) 28.7 % Normal 19-41 [facility] Comment on above: Performed By: #### L 500.4050, L100.0100 ####[facility] [address] [place], [address] MCH (RBC) [Entitic mass] 31.0 pg Normal 27.0-32.0 [facility] Comment on above: Performed By: #### L 500.4050, L100.0100 ####[facility] [address] [place], [address] MCHC (RBC) [Mass/Vol] 32.6 g/dL Normal 32-36 [facility] Comment on above: Performed By: #### L 500.4050, L100.0100 ####[facility] [address] [place], [address] MCV (RBC) [Entitic vol] 95.1 fL High 80-94 [facility] Comment on above: Performed By: #### L 500.4050, L100.0100 ####[facility] [address] [place], [address] Monocytes/100 WBC (Bld) 17.6 % High 0-10 [facility] Comment on above: Performed By: #### L 500.4050, L100.0100 ####[facility] [address] [place], [address] Neutrophils/100 WBC (Bld) 49.0 % Normal 47-70 [facility] Comment on above: Performed By: #### L 500.4050, L100.0100 ####[facility] [address] [place], [address] Nucleated RBC (Bld) [#/Vol] 0 10*3/uL Normal 0-5 [facility] Comment on above: Performed By: #### L 500.4050, L100.0100 ####[facility] [address] [place], [address] Platelet mean volume (Bld) [Entitic vol] 9.8 fL Normal 6.2-12.0 [facility] Comment on above: Performed By: #### L 500.4050, L100.0100 ####[facility] [address] [place], [address] Platelets (Bld) [#/Vol] 320 10*3/uL Normal 150-450 [facility] Comment on above: Performed By: #### L 500.4050, L100.0100 ####[facility] [address] [place], [address] RBC (Bld) [#/Vol] 4.51 10*6/uL Low 4.6-6.2 [facility] Comment on above: Performed By: #### L 500.4050, L100.0100 ####[facility] [address] [place], [address] RDW SD 47.1 fl High 35.1-43.9 [facility] Comment on above: Performed By: #### L 500.4050, L100.0100 ####[facility] [address] [place], [address] WBC (Bld) [#/Vol] 6.6 10*3/uL Normal 4.4-11.0 [facility] Comment on above: Performed By: #### L 500.4050, L100.0100 ####[facility] [address] [place], [address] Comprehensive Metabolic Prof ilon 04-25-2024 Calcium [Mass/Vol] 9.1 mg/dL Normal 7.6-11.0 [facility] Comment on above: Performed By: #### L 500.4050, L100.0100 ####[facility] [address] [place], [address] Chloride [Moles/Vol] 106 mmol/L Normal 98-107 [facility] Comment on above: Performed By: #### L 500.4050, L100.0100 ####[facility] [address] [place], [address] CO2 [Moles/Vol] 19.0 mmol/L Low 21.0-32.0 [facility] Comment on above: Performed By: #### L 500.4050, L100.0100 ####[facility] [address] [place], [address] GAP 15 Normal 5-15 [facility] Comment on above: Performed By: #### L 500.4050, L100.0100 ####[facility] [address] [place], [address] Potassium [Moles/Vol] 4.0 mmol/L Normal 3.5-5.1 [facility] Comment on above: Performed By: #### L 500.4050, L100.0100 ####[facility] [address] [place], [address] Sodium [Moles/Vol] 140 mmol/L Normal 136-145 [facility] Comment on above: Performed By: #### L 500.4050, L100.0100 ####[facility] [address] [place], [address] Emergency Department Summary on 04-25-2024 Emergency Department Summary [facility] Medical Records Department [address] [place] [address] Emergency Department Summary 04/25/24 MR#: [id number] Acct: [id number] Name: JAI LUNA Rep #: [id number] : 1950 74 From: Tejal CAMACHO PCP: [...] than usual based on what he eats. [facility] Medical History MRSA (methicillin resistant staph aureus) [...] 12/22/16) Essential hypertension Atherosclerotic heart disease of [place] coronary artery without angina pectoris Hypoacusis Dyslipidemia [...] and tender (more content not included)... Normal [facility] Eosinophil percentageOrdered By: Tejal Bassett on 04-25-2024 Eosinophils/100 WBC (Bld) 3.3 % 0-5 [facility] Erythrocyte distribution wid th ratioOrdered By: Tejal Bassett on 04-25-2024 Erythrocyte distribution width (RBC) [Ratio] 13.3 % 11.6-14.6 [facility] Erythrocyte distribution wid th standard deviationOrdered By: Tejal Bassett on 04-25-2024 Erythrocyte distribution width (RBC) [Ratio] 47.1 fl High 35.1-43.9 [facility] Glomerular filtration rate ( GFR) estimation/1.73 sq m using serum, plasma, or whole bOrdered By: Tejal Bassett on 04-25-2024 GFR/1.73 sq M.predicted among non-blacks MDRD (S/P/Bld) [Vol rate/Area] 70 mL/min/{1.73_m2} >60 [facility] Comment on above: mL/min/1.73m2 CKD-EP I Creatinine Equation (2020)Previous reported result: 76 Edited by: RASHIDA on 04/25/24:1504 AMENDED REPORT 04/25/241503 EST GFR previously reported as: 76 mL/min/1.73m2 CKD-EPI Creatinine Equation (2020) Hematocrit Auto (Bld) [Volum e fraction]Ordered By: Tejal Bassett on 04-25-2024 Hematocrit (Bld) [Volume fraction] 42.9 % 40-54 [facility] Hemoglobin measurementOrdere d By: Tejal Bassett on 04-25-2024 Hemoglobin (Bld) [Mass/Vol] 14.0 g/dL 13.0-16.5 [facility] Immature granulocytes/100 WB C Auto (Bld)Ordered By: Tejal Bassett on 04-25-2024 Immature granulocytes/100 WBC (Bld) 0.800 % 0.0-0.9 [facility] Comment on above: IG% - Immature Granu locytes (promyelocytes, myelocytes and metamyelocytes) > 1% indicates that a LEFT SHIFT is Present. Ketones Test strip Ql (U)Ord ered By: Tejla Bassett on 04-25-2024 Ketones Ql (U) Negative Negative [facility] Laboratory - Chemistry and C hemistry - challengeOrdered By: Tejal Bassett on 04-25-2024 AST [Catalytic activity/Vol] 40 U/L High <38 [facility] Comment on above: Previous reported re sult: 38 U/LEdited by: RASHIDA on 04/25/24:1504 AMENDED REPORT 04/25/241503 AST previously reported as: 38 U/L MCV (mean corpuscular volume ) determinationOrdered By: Tejal Bassett on 04-25-2024 MCV (RBC) [Entitic vol] 95.1 fL High 80-94 [facility] Mean corpuscular hemoglobin (MCH) determinationOrdered By: Tejal Bassett on 04-25-2024 MCH (RBC) [Entitic mass] 31.0 pg 27.0-32.0 [facility] Mean corpuscular hemoglobin concentration (MCHC) determinationOrdered By: Tejal Bassett on 04-25-2024 MCHC (RBC) [Mass/Vol] 32.6 g/dL 32-36 [facility] Mean platelet volume determi nationOrdered By: Tejal Bassett on 04-25-2024 Platelet mean volume (Bld) [Entitic vol] 9.8 fL 6.2-12.0 [facility] Microscopic analysis of urin e for red blood cells (RBC)Ordered By: Tejal Bassett on 04-25-2024 Microscopic analysis of urine for red blood cells (RBC) 25-50 SEEN /hpf 0-5 [facility] Monocyte percentageOrdered B y: Tejal Bassett on 04-25-2024 Monocytes/100 WBC (Bld) 17.6 % High 0-10 [facility] Mucus LM Ql (Urine sed)Order ed By: Tejal Bassett on 04-25-2024 Mucus Ql (Urine sed) 0 SEEN /hpf [facility] Neutrophil percentageOrdered By: Tejal Bassett on 04-25-2024 Neutrophils/100 WBC (Bld) 49.0 % 47-70 [facility] Nitrite Test strip Ql (U)Ord ered By: Tejal Bassett on 04-25-2024 Nitrite Ql (U) Negative Negative [facility] Nucleated red blood cell per centageOrdered By: Tejal Bassett on 04-25-2024 Nucleated RBC/100 WBC (Bld) [Ratio] 0 % 0-5 [facility] Platelet countOrdered By: Carey Bassett on 04-25-2024 Platelets (Bld) [#/Vol] 320 10*3/uL 150-450 [facility] Potassium measurementOrdered By: Tejal Bassett on 04-25-2024 Potassium [Moles/Vol] 4.0 mmol/L 3.5-5.1 [facility] Protein Test strip Ql (U)Ord ered By: Tejal Bassett on 04-25-2024 Protein Ql (U) 30 mg/dl High Negative [facility] RBC Auto (Bld) [#/Vol]Ordere d By: Tejal Bassett on 04-25-2024 RBC (Bld) [#/Vol] 4.51 10*6/uL Low 4.6-6.2 [facility] Serum anion gap measurementO rdered By: Tejal Bassett on 04-25-2024 Anion gap [Moles/Vol] 15 mmol/L 5-15 [facility] Serum globulin measurementOr dered By: Tejal Bassett on 04-25-2024 Globulin (S) [Mass/Vol] 3.2 g/dL 2.2-4.2 [facility] Comment on above: Previous reported re sult: 3.3 g/dLEdited by: RASHIDA on 04/25/24:1504 AMENDED REPORT 04/25/24 1504 GLOB previously reported as: 3.3 g/dL Serum glucose measurement (m ass/volume)Ordered By: Tejal Bassett on 04-25-2024 Glucose [Mass/Vol] 89 mg/dL 70-99 [facility] Comment on above: Previous reported re sult: 92 mg/dLEdited by: RASHIDA on 04/25/24:1504 AMENDED REPORT 04/25/24 1504 GLU previously reported as: 92 mg/dL Serum or plasma alanine loya otransferase (ALT) measurementOrdered By: Tejal Bassett on 04-25-2024 ALT [Catalytic activity/Vol] 38 U/L <47 [facility] Comment on above: Previous reported re sult: 36 U/LEdited by: RASHIDA on 04/25/24:1504 AMENDED REPORT 04/25/24 1504 ALT previously reported as: 36 U/L Serum or plasma albumin shae urement (mass/volume)Ordered By: Tejal Bassett on 04-25-2024 Albumin [Mass/Vol] 4.1 g/dL 3.4-4.8 [facility] Serum or plasma albumin/glob ulin mass ratioOrdered By: Tejal Bassett on 04-25-2024 Albumin/Globulin [Mass ratio] 1.3 {ratio} 0.9-2.4 [facility] Comment on above: Previous reported re sult: 1.2 RATIOEdited by: AUTOINS on 04/25/24:1227 AMENDED REPORT 04/25/24 122 A/G previously reported as: 1.2 RATIO Serum or plasma alkaline guru sphatase measurementOrdered By: Tejal Bassett on 04-25-2024 ALP [Catalytic activity/Vol] 92 U/L 40-129 [facility] Comment on above: Previous reported re sult: 96 U/LEdited by: BLAIRS on 04/25/24:1504 AMENDED REPORT 04/25/24 150 ALK P previously reported as: 96 U/L Serum or plasma calcium shae urement (mass/volume)Ordered By: Tejal Bassett on 04-25-2024 Calcium [Mass/Vol] 9.1 mg/dL 7.6-11.0 [facility] Serum or plasma carbon dioxi de measurement (moles/volume)Ordered By: Tejal Bassett on 04-25-2024 CO2 [Moles/Vol] 19.0 mmol/L Low 21.0-32.0 [facility] Serum or plasma chloride [place]ville surement (moles/volume)Ordered By: Tejal Bassett on 04-25-2024 Chloride [Moles/Vol] 106 mmol/L 98-107 [facility] Serum or plasma creatinine m easurement (moles/volume)Ordered By: Tejal Bassett on 04-25-2024 Creatinine [Moles/Vol] 1.1 mg/dL 0.8-1.3 [facility] Comment on above: Previous reported re sult: 1.0 mg/dLEdited by: AUTOINS on 04/25/24:1504 AMENDED REPORT 04/25/24 1504 CREAT,SERUM previously reported as: 1.0 mg/dL Serum or plasma urea nitroge n measurement (mass/volume)Ordered By: Tejal Bassett on 04-25-2024 Urea nitrogen [Mass/Vol] 18 mg/dL 4-19 [facility] Comment on above: Previous reported re sult: 19 mg/dLEdited by: AUTOINS on 04/25/24:1504 AMENDED REPORT 04/25/24 1504 BUN previously reported as: 19 mg/dL Sodium levelOrdered By: Tejal Bassett on 04-25-2024 Sodium [Moles/Vol] 140 mmol/L 136-145 [facility] Squamous epithelial cells de tection in urine sediment by light microscopyOrdered By: Tejal Bassett on 04-25-2024 Epithelial cells.squamous LM Ql (Urine sed) 0-5 SEEN /hpf 0-5 [facility] Total proteinOrdered By: Mary Ellen Bassett on 04-25-2024 Protein [Mass/Vol] 7.3 g/dL 5.9-8.4 [facility] Comment on above: Previous reported re sult: 7.4 g/dLEdited by: RASHIDA on 04/25/24:1504 AMENDED REPORT 04/25/241503 T PROT previously reported as: 7.4 g/dL Urinalysis, Completeon 04-25 EPI,SQUAMOUS 0-5 SEEN Normal 0-5 [facility] Comment on above: Order Comment: KEITH TER SPECIMEN Performed By: #### L 400.0001 #### [facility] [address] [place], [address] RBC 25-50 SEEN Normal 0-[address] [place] [address] Comment on above: Order Comment: KEITH TER SPECIMEN Performed By: #### L 400.0001 #### [facility] [address] [place], [address] BACTERIA 0 SEEN Normal None Seen [facility] Comment on above: Order Comment: KEITH TER SPECIMEN Performed By: #### L 400.0001 #### [facility] [address] [place], [address] Mucus Ql (Urine sed) 0 SEEN Normal [facility] Comment on above: Order Comment: KEITH TER SPECIMEN Performed By: #### L 400.0001 #### [facility] [address] [place], [address] WBC 0 SEEN Normal 0-5 [facility] Comment on above: Order Comment: KEITH TER SPECIMEN Performed By: #### L 400.0001 #### [facility] [place], [address] Urine clarityOrdered By: Mary Ellen Bassett on 04-25-2024 Clarity (U) Sl. Cloudy Clear [facility] Urine color determinationOrd ered By: Tejal Bassett on 04-25-2024 Color (U) Yellow Yellow [facility] Urine cultureOrdered By: Mary Ellen Bassett on 04-25-2024 Bacteria identified Cx Nom (U) Positive Abnormal [facility] Urine glucose detectionOrder ed By: Tejal Bassett on 04-25-2024 Glucose Ql (U) Normal mg/dl Normal [facility] Urine leukocyte esterase det ection by dipstickOrdered By: Tejal Bassett on 04-25-2024 Leukocyte esterase Test strip Ql (U) Negative Negative [facility] Urine pHOrdered By: Tejal marsh on 04-25-2024 pH (U) 5.0 [pH] 5.0 - 8.0 [facility] Urine sediment bacteria coun t by microscopy (number/high power field)Ordered By: Tejal Bassett on 04-25-2024 Bacteria LM.HPF (Urine sed) [#/Area] 0 /[HPF] None Seen [facility] Urine specific gravity measu rementOrdered By: Tejal Bassett on 04-25-2024 Specific gravity (U) [Rel density] 1.025 1.002-1.030 [facility] Urine urobilinogen measureme ntOrdered By: Tejal Bassett on 04-25-2024 Urobilinogen Ql (U) Normal mg/dl Normal [facility] White blood cell (WBC) count Ordered By: Tejal Bassett on 04-25-2024 WBC (Bld) [#/Vol] 6.6 10*3/uL 4.4-11.0 [facility] White blood cell countOrdere d By: Tejal Bassett on 04-25-2024 White blood cell count 0 SEEN /hpf 0-5 W [facility] Cerv Spine 2 or 3 Viewson Cerv Spine 2 or 3 Views [facility] Imaging Services [address] [place], [place] [id number] Cerv Spine 2 or 3 Views MR#: [id number] Acct: [id number] Name: JAI LUNA Rep #: [id number] : 1950 M 74 From: Toro Sanford PCP: Dr. Katy Faust MD Status: DEP AMB Study: Cerv Spine 2 or 3 Views Date of Exam: 04/21/24 Exam# [id number] Ordering Dr: Zaira De Jesus PROCEDURE: Cervical [...] CC: JANICE Barakat; Dr. Katy Faust MD Towing Pilot: Signed Normal [facility] Orthopedic Visit Reporton Orthopedic Visit Report [facility] [address] [place] [address] OFFICE VISIT Date of Service: 04/21/24 MR#: [id number] Acct: [id number] Name: JAI LUNA Rep #: [id number] : 1950 Provider: Dr. Howard Siddiqui MD Age/Sex: 74/M Location: [facility] Status: Signed Intake Vital Signs 01/18/24 05:58 [...] 12/22/16) Essential hypertension Atherosclerotic heart disease of [place] coronary artery without angina pectoris Hypoacusis Dyslipidemia [...] by me, Dr. Howard Siddiqui MD 04/21/24 9607. Part of today???s visit was documented by [...] of Care (more content not included)... Normal [facility] MR IAC W AND WO IV CONTRASTo n 03-27-2024 MR IAC W AND WO IV CONTRAST Interpreted By: Donato John, STUDY: MR IAC W AND WO IV CONTRAST; 03/27/2024 1:40 pm INDICATION: Signs/Symptoms:Yearly vestibular schwannoma surveillance. 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 MACRO: none Signed by: Donato John 03/27/2024 2:22 PM Dictation workstation: [id number] MMODAL Interpreted By: Donato John, STUDY: MR IAC W AND WO IV CONTRAST; 03/27/2024 1:40 pm INDICATION: Signs/Symptoms:Yearly vestibular schwannoma surveillance. 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) COMPARISON: March 2023 ACCESSION NUMBER(S): [id number] ORDERING CLINICIAN: GISELA CAN TECHNIQUE: The brain [...] nerves (Multi) COMPARISON: March 2023 ACCESSION NUMBER(S): [id number] ORDERING CLINICIAN: GISELA CAN TECHNIQUE: The brain [...] Donato John 03/27/2024 2:22 PM Dictation workstation: [id number] [facility] Work Phone: Radiology Study observation (narrative) [facility] Work Phone: MR Internal auditory canal W O and W contrast IVOrdered By: Donato John on 03-27-2024 [facility] Work Phone: Cerv Spine 2 or 3 Viewson Cerv Spine 2 or 3 Views [facility] Radiology [address] [place] [address] Cerv Spine 2 or 3 Views MR#: [id number] Acct: [id number] Name: JAI LUNA Rep #: [id number] : 1950 M 74 From: Reji Godoy MD PCP: Dr. Katy Faust MD Status: DEP AMB Study: Cerv Spine 2 or 3 Views Date of Exam: 03/02/24 Exam# [id number] Ordering Dr: Zaira De Jesus [id number] EXAM: XR CERVICAL SPINE, 2 OR 3 [...] CC: JANICE Barakat; Dr. Katy Faust MD Towing Pilot: Signed Normal [facility] Orthopedic Visit Reporton Orthopedic Visit Report [facility] [address] [place] [address] [place] [address] OFFICE VISIT Date of Service: 03/02/24 MR#: [id number] Acct: [id number] Name: JAI LUNA Rep #: [id number] : 1950 Provider: JANICE Barakat Age/Sex: 74/M Location: [facility] Status: Signed with Addenda ADDENDUM by JANICE [...] 12/22/16) Essential hypertension Atherosclerotic heart disease of [place] coronary artery without angina pectoris Hypoacusis Dyslipidemia [...] Ortho Ex (more content not included)... Normal [facility] Upper Extremity Arterial Diogo dyon 02-25-2024 Upper Extremity Arterial Study [facility] Cardiovascular [place] [address] Upper Extremity Arterial Study 02/25/24 1258 MR#: [id number] Acct: [id number] Name: JAI LUNA Rep #: [id number] : 1950 74 From: Raghu Reynolds MD [...] Date Dictated: 02/25/24 1258 Date Transcribed: 02/28/24954 Towing Pilot: Signed [facility] 02-14-2024 [facility] Telephone (INTMWS) JAI LUNA ([id number]) 1950 M Date Time Provider Department 02/14/24 [...] surgery in December [address]iddiqui [facility]. Advised patient to go to [facility] ER for evaluation. He said has no [...] Date Reviewed: 01/04/2024 Reviewed by: Norm Parker APRN.FURNITURE INSPECTOR - Fully Assessed Reason for Visit: Patient [...] Status:Closed by KATY FAUST on 02/14/24 Normal [facility] Cerv Spine 2 or 3 Viewson Cerv Spine 2 or 3 Views [facility] Radiology [address] [place] [address] Cerv Spine 2 or 3 Views MR#: [id number] Acct: [id number] Name: JAI LUNA Rep #: [id number] : 1950 M 73 From: Jose Mars MD PCP: Dr. Katy Faust MD Status: DEP AMB Study: Cerv Spine 2 or 3 Views Date of Exam: 02/03/24 Exam# [id number] Ordering Dr: Zaira De Jesus [id number] STUDY: X-RAY - CERVICAL SPINE REASON FOR [...] since the previous study Electronically Signed: Keanu Mars MD at 15:38 EST Reading Location ID and State: [facility] / [place] , Service support , CC: JANICE Barakat; Dr. Katy Faust MD Towing Pilot: Signed Normal [facility] Orthopedic Visit Reporton Orthopedic Visit Report [facility] [address] [place] [address] [address] [place] [address] OFFICE VISIT Date of Service: 02/03/24 MR#: [id number] Acct: [id number] Name: JAI LUNA Rep #: [id number] : 1950 Provider: Dr. Howard Siddiqui MD Age/Sex: 73/M Location: [facility] Status: Signed Intake Vital Signs 11/10/23 10:35 [...] 12/22/16) Essential hypertension Atherosclerotic heart disease of [place] coronary artery without angina pectoris Hypoacusis Dyslipidemia [...] made by me, Dr. Howard Siddiqui MD 02/03/2499. Part of today???s visit was documented by [...] Ortho Exam (more content not included)... Normal [facility] Basic Metabolic Profile (BMP )on 01-19-2024 BUN/CRE 19.7 RATIO Normal - [facility] Comment on above: Performed By: #### L 500.2500, L100.0500 ####[facility] [address] [place], [address] CA,Total 8.6 mg/dL Normal 8.5-10.1 [facility] Comment on above: Performed By: #### L 500.2500, L100.0500 ####[facility] [address] [place], [address] Chloride [Moles/Vol] 106 mmol/L Normal 98-107 [facility] Comment on above: Performed By: #### L 500.2500, L100.0500 ####[facility] [address] [place], [address] CO2 [Moles/Vol] 23.0 mmol/L Normal 21.0-32.0 [facility] Comment on above: Performed By: #### L 500.2500, L100.0500 ####[facility] [address] [place], [address] Creatinine [Mass/Vol] 1.17 mg/dL Normal 0.70-1.30 [facility] Comment on above: Result Comment: The validity of the calculated GFR GFRAA in patients over 70 years has not been determined. Clinical correlation is essential. Performed By: #### L 500.2500, L100.0500 ####[facility] [address] [place], [address] ECRCL 57.81 ml/min Normal [facility] Comment on above: Performed By: #### L 500.2500, L100.0500 ####[facility] [address] [place], [address] EST GFR - AA 78 mL/min Normal >60 [facility] Comment on above: Result Comment: Afri can [place] GFR Calc Performed By: #### L 500.2500, L100.0500 ####[facility] [address] [place], [address] GAP 7 Normal 5-15 [facility] Comment on above: Performed By: #### L 500.2500, L100.0500 ####[facility] [address] [place], [address] GFR/1.73 sq M.predicted among non-blacks MDRD (S/P/Bld) [Vol rate/Area] 65 mL/min/{1.73_m2} Normal >60 [facility] Comment on above: Result Comment: Non- GFR Calc Performed By: #### L 500.2500, L100.0500 ####[facility] [address] [place], [address] Glucose [Mass/Vol] 151 mg/dL High 74-106 [facility] Comment on above: Result Comment: Fast ing Glucose result greater than or equal to 126 mg/dL suggests DIABETES MELLITUS per A.D.A. criteria. Performed By: #### L 500.2500, L100.0500 ####[facility] [address] [place], [address] Potassium [Moles/Vol] 4.0 mmol/L Normal 3.5-5.1 [facility] Comment on above: Performed By: #### L 500.2500, L100.0500 ####[facility] [address] [place], [address] Sodium [Moles/Vol] 136 mmol/L Normal 136-145 [facility] Comment on above: Performed By: #### L 500.2500, L100.0500 ####[facility] [address] [place], [address] Urea nitrogen [Mass/Vol] 23 mg/dL High 7-18 [facility] Comment on above: Performed By: #### L 500.2500, L100.0500 ####[facility] [address] [place], [address] CBC-Complete Blood Cnt No Di ffon 01-19-2024 Erythrocyte distribution width (RBC) [Ratio] 14.2 % Normal 11.6-14.6 [facility] Comment on above: Performed By: #### L 500.2500, L100.0500 ####[facility] [address] [place], [address] Hematocrit (Bld) [Volume fraction] 39.6 % Low 40-54 [facility] Comment on above: Performed By: #### L 500.2500, L100.0500 ####[facility] [address] [place], [address] Hemoglobin (Bld) [Mass/Vol] 12.8 g/dL Low 13.0-16.5 [facility] Comment on above: Performed By: #### L 500.2500, L100.0500 ####[facility] [address] [place], [address] MCH (RBC) [Entitic mass] 30.4 pg Normal 27.0-32.0 [facility] Comment on above: Performed By: #### L 500.2500, L100.0500 ####[facility] [address] [place], [address] MCHC (RBC) [Mass/Vol] 32.3 g/dL Normal 32-36 [facility] Comment on above: Performed By: #### L 500.2500, L100.0500 ####[facility] [address] [place], [address] MCV (RBC) [Entitic vol] 94.1 fL High 80-94 [facility] Comment on above: Performed By: #### L 500.2500, L100.0500 ####[facility] [address] [place], [address] Platelet mean volume (Bld) [Entitic vol] 10.5 fL Normal 6.2-12.0 [facility] Comment on above: Performed By: #### L 500.2500, L100.0500 ####[facility] [address] [place], [address] Platelets (Bld) [#/Vol] 253 10*3/uL Normal 150-450 [facility] Comment on above: Performed By: #### L 500.2500, L100.0500 ####[facility] [address] [place], [address] RBC (Bld) [#/Vol] 4.21 10*6/uL Low 4.6-6.2 [facility] Comment on above: Performed By: #### L 500.2500, L100.0500 ####[facility] [address] [place], [address] RDW SD 48.7 fl High 35.1-43.9 [facility] Comment on above: Performed By: #### L 500.2500, L100.0500 ####[facility] [address] [place], [address] WBC (Bld) [#/Vol] 11.4 10*3/uL High 4.4-11.0 [facility] Comment on above: Performed By: #### L 500.2500, L100.0500 ####[facility] [address] [place], [address] Cerv Spine 2 or 3 Viewson Cerv Spine 2 or 3 Views [facility] Imaging Services [address] [place] [address] Cerv Spine 2 or 3 Views MR#: [id number] Acct: [id number] Name: JAI LUNA Rep #: [id number] : 1950 M 73 From: Leno hardin MD PCP: Dr. Katy Faust MD Status: ADM RUDDY Study: Cerv Spine 2 or 3 Views Date of Exam: 01/19/24 Exam# [id number] Ordering Dr: Zaira De Jesus [id number] STUDY: X-RAY - CERVICAL SPINE REASON FOR [...] 12:08 EST Reading Location ID and State: [address] [place] [address] , Service support , CC: JANICE Barakat; Dr. Katy Faust MD Towing Pilot: Signed Normal [facility] Bedside Glucoseon 01-18-2024 FINGERSTICK GLU 86 mg/dL Normal 74-106 [facility] Comment on above: Result Comment: ZENA GEMENT OF PATIENT CARE PER NURSING PROTOCOL Performed By: #### L 500.2500, L100.0100 #### [facility] Laboratory [address] [place], [address] Cerv Spine 2 or 3 Viewson Cerv Spine 2 or 3 Views [facility] Imaging Services [address] [place] [address] Cerv Spine 2 or 3 Views MR#: [id number] Acct: [id number] Name: JAI LUNA Rep #: [id number] : 1950 M 73 From: Jonathan Kwan PCP: Dr. Katy Faust MD Status: ADM IN Study: Cerv Spine 2 or 3 Views Date of Exam: 01/18/24 Exam# [id number] Ordering Dr: Howard Siddiqui MD [id number] INDICATION: ERAS, ANTERIOR CERVICAL DISC FUSION C5-C6 [...] Howard Siddiqui MD; Dr. Katy Faust MD Towing Pilot: Signed Normal [facility] MR/POSTOP.ANEon 01-18-2024 MR/POSTOP.[facility] Medical Records Department [address] [place] [address] Anesthesia Postop Eval I 01/18/24 1031 MR#: [id number] Acct: [id number] Name: JAI LUNA Rep #: [id number] : 1950 73 From: Carmina Guadarrama PCP: Dr. Katy Faust MD Status:REG SDC Y Race: C Location: [place] [address] Anesthesia: Postop Eval I Current Vital Signs [...] Carmina Briones Signature: Date CC: Signed Normal [facility] MR/SSQXUBVE1qy 01-18-2024 [facility] Medical Records Department [address] [place] [address] Anesthesia Postop Eval II 01/18/24 1556 MR#: [id number] Acct: [id number] Name: JAI LUNA Rep #: [id number] : 1950 73 From: Dexter Wheeler MD PCP: Dr. Katy Faust MD Status:ADM RUDDY Y Race: C Location: Anesthesia Postop Eval I Sum Postop Eval Completion status Anesthesia document: Postop Eval 1 completed: Yes Anesthesia Postop Eval I Summary Anesthesia Postop Eval I Summary: Anesthesia Postop Eval I: Assessment Summary Airway patent Yes 01/18/24 10:32 [employer].GDOTT Spontaneous unlabored Yes 01/18/24 10:32 [employer].GDOTT respirations Mental status Awake,Calm 01/18/24 10:32 [employer].GDOTT nausea No 01/18/24 10:32 [employer].GDOTT Vomiting No 01/18/24 10:32 [employer].GDOTT Anesthesia Postop Eval I: Fluid Summary Crystalloid volume administer 1,100 01/18/24 10:32 [employer].GDOTT (ml) Colloids volume administered ( ml) Blood Product volume administered (ml) Total IV fluid infused 1,100 01/18/24 10:32 [employer].GDOTT Anesthesia Postop Eval I: Summary Notes Anesthesia Complication No 01/18/24 10:32 [employer].GDOTT Anesthesia Complication Comment: Post-operative progress note Anesthesia: Postop Eval II Evaluation Mental status: Awake and Calm Pain Level: 1 nausea: No Vomiting: No Complications Anesthesia Complication: No 01/18/24 1557 Date Dexter Wheeler MD Cosigner Signature: Date CC: Signed Normal [facility] Operative Reporton 4 Operative Report [facility] Medical Records Department [address] [place] [address] Operative Report 01/18/24 1004 MR#: [id number] Acct: [id number] Name: LUNA,JAI M Rep #: [id number] : 1950 73 From: Howard Siddiqui MD PCP: Dr. Katy Faust MD Status:[facility] Location: [place] [address] Operative Report (Standard) Operative Information Surgery/Procedure Performed: C5-7 anterior cervical discectomy and fusion Surgeon: Howard Siddiqui Date of Procedure: 01/18/24 Procedure Start Time: 08:09 Procedure Stop Time: 10:15 Pre-Operative Diagnosis: C5-7 disc degeneration with stenosis, radiculopathy Post-Operative Diagnosis: Same Select all DRAINS/GRAFTS/IMPLANT S that apply: Drains Drain details: [place] , Graft Graft details: Structural allograft cortical cancellous strut, DBX and Implanted device Implanted device details: Medtronic Culloden Elite anterior cervical plate instrumentation Type of Anesthesia: General Estimated Blood Loss: 30 cc Specimen collected: No Description of surgery: Preoperative diagnosis: C5-7 disc degeneration with stenosis, radiculopathy Postoperative diagnosis: Same Name of procedure: C5-7 anterior cervical discectomy and fusion with plate instrumentation - Anterior cervical fusion C5-6, CPT code 24942 - Anterior plate instrumentation C5-7, CPT code 94983/59 - Anterior cervical fusion C6-7, CPT code 48988/51 -C5-6 structural allograft bone with DBX, CPT code 97539 -C6-7 structural allograft bone with DBX, CPT code 01099 Attending surgeon: Howard Siddiqui M.D. Anesthesia: Gen. endotracheal Estimated blood loss: 30 mL Complications: None Instrumentation used: Medtronic Culloden Elite plate, LASR corticocancellous block Indications: The [...] Disc fragments were removed with the pituitary. [place] pins were placed in C5 and C6 [...] good pullout strength. A 40 mm Medtronic Culloden Elite plate was then fixed to C5-7 with 16 mm screws. A lateral x-ray was then taken to check the length of the screws. Both AP an (more content not included)... Normal [facility] Orthopedic Visit Reporton Orthopedic Visit Report [facility] [address] [place] [address] 5 [place] [address] OFFICE VISIT Date of Service: 01/11/24 MR#: [id number] Acct: [id number] Name: JAI LUNA Rep #: [id number] : 1950 Provider: Dr. Howard Siddiqui MD Age/Sex: 73/M Location: [facility] Status: Signed Intake Vital Signs 11/10/23 10:35 [...] 12/22/16) Essential hypertension Atherosclerotic heart disease of [place] coronary artery without angina pectoris Hypoacusis Dyslipidemia [...] she did (more content not included)... Normal [facility] Hepatitis A AB, Totalon HEPATITIS A,TOT Negative Normal Negative [facility] Comment on above: Result Comment: Comm ent: The HAV total antibody assay detects both IgG and IgM but does not differentiate between them. A negative result suggests susceptibility to infection. A positive result could be due to vaccination, previously resolved infection or active infection. Testing for HAV IgM should be performed if active HAV infection is suspected. [employer] offers profiles that will automatically reflex positive HAV total antibody results to IgM (e.g., panel #[id number] HAV Antibody w/ Rfx). Performed at: [address] [id number] Business Services Specialist Sales: Will Stockton PhD, Phone: [phone] Performed By: #### L 100.0100, M100.651, L3890.6005, L3890.6300, BTSPAT, L3890.6200, L3100.0300 ####[facility] [address] [place], [place], [address] MRSA/SAID NASAL SCREENon MRSA+SAID SCRN Reason for Exam: PRE-OP MRSA MRSA Negative S. AUREUS S. aureus Negative * This is an amended result. * A prior result that was reported as final has been changed. 01/06/24 1402 by CHELA Previously reported as: POSITIVE Normal [facility] Comment on above: Performed By: #### L 100.0100, M100.651, L3890.6005, L3890.6300, BTSPAT, L3890.6200, L3100.0300 ####[facility] [address] [place], [address] 12 Lead EKGon 01-05-2024 12 Lead EKG [facility] Cardiovascular Services [address] [place] [address] 12 Lead EKG 01/05/24 0654 MR#: [id number] Acct: [id number] Name: JAI LUNA Rep #: [id number] : 1950 73 From: Winter Foy MD Attending Dr: Dr. Howard Siddiqui MD Status: [facility] [place] [facility]: Howard Siddiqui MD Date: 01/05/24 [place] [facility] Sex: M C Admitted: Test Reason : PREOP Blood Pressure : */* mmHG Vent. Rate : 61 BPM Atrial Rate : 61 BPM P-R Int : 162 ms QRS Dur : 120 ms QT Int : 452 ms P-R-T Axes : 21 10 42 degrees QTcB Int : 455 ms Normal sinus rhythm Right bundle branch block Abnormal ECG Confirmed by Winter Foy ([id number]), editor & co founder DEBORAH ELLSWORTH ([id number]) on 01/05/2024 1:10:02 PM Referred By: Howard Siddiqui Confirmed By: Winter Foy 01/05/24 1310 Date Winter Foy MD CC: Dr. Howard Siddiqui MD; Dr. Katy Faust MD Signed Normal [facility] CBC W/Diff, Automatedon 11-0 Absolute Lymph 1.71 X10 3/uL Normal 0.83-4.51 [facility] Comment on above: Performed By: #### L 100.0100, M100.651, L3890.6005, L3890.6300, BTSPAT, L3890.6200, L3100.0300 #### [facility] [address] [place], [address] Absolute Neut 3.9 X10 3/uL Normal 2.0-7.7 [facility] Comment on above: Performed By: #### L 100.0100, M100.651, L3890.6005, L3890.6300, BTSPAT, L3890.6200, L3100.0300 #### [facility] [address] [place], [address] Basophils/100 WBC (Bld) 0.9 % Normal 0-1 [facility] Comment on above: Performed By: #### L 100.0100, M100.651, L3890.6005, L3890.6300, BTSPAT, L3890.6200, L3100.0300 #### [facility] [address] [place], [address] Eosinophils/100 WBC (Bld) 6.4 % High 0-5 [facility] Comment on above: Performed By: #### L 100.0100, M100.651, L3890.6005, L3890.6300, BTSPAT, L3890.6200, L3100.0300 #### [facility] [address] [place], [address] Erythrocyte distribution width (RBC) [Ratio] 14.2 % Normal 11.6-14.6 [facility] Comment on above: Performed By: #### L 100.0100, M100.651, L3890.6005, L3890.6300, BTSPAT, L3890.6200, L3100.0300 #### [facility] [address] [place], [address] Hematocrit (Bld) [Volume fraction] 41.0 % Normal 40-54 [facility] Comment on above: Performed By: #### L 100.0100, M100.651, L3890.6005, L3890.6300, BTSPAT, L3890.6200, L3100.0300 #### [facility] [address] [place], [address] Hemoglobin (Bld) [Mass/Vol] 13.3 g/dL Normal 13.0-16.5 [facility] Comment on above: Performed By: #### L 100.0100, M100.651, L3890.6005, L3890.6300, BTSPAT, L3890.6200, L3100.0300 #### [facility] [address] [place], [address] IG% 0.400 Normal 0.0-0.9 [facility] Comment on above: Result Comment: IG% - Immature Granulocytes (promyelocytes, myelocytes and metamyelocytes) > 1% indicates that a LEFT SHIFT is Present. Performed By: #### L 100.0100, M100.651, L3890.6005, L3890.6300, BTSPAT, L3890.6200, L3100.0300 #### [facility] [address] [place], [address] Lymphocytes/100 WBC (Bld) 24.7 % Normal 19-41 [facility] Comment on above: Performed By: #### L 100.0100, M100.651, L3890.6005, L3890.6300, BTSPAT, L3890.6200, L3100.0300 #### [facility] [address] [place], [address] MCH (RBC) [Entitic mass] 31.2 pg Normal 27.0-32.0 [facility] Comment on above: Performed By: #### L 100.0100, M100.651, L3890.6005, L3890.6300, BTSPAT, L3890.6200, L3100.0300 #### [facility] [address] [place], [address] MCHC (RBC) [Mass/Vol] 32.4 g/dL Normal 32-36 [facility] Comment on above: Performed By: #### L 100.0100, M100.651, L3890.6005, L3890.6300, BTSPAT, L3890.6200, L3100.0300 #### [facility] [address] [place], [address] MCV (RBC) [Entitic vol] 96.2 fL High 80-94 [facility] Comment on above: Performed By: #### L 100.0100, M100.651, L3890.6005, L3890.6300, BTSPAT, L3890.6200, L3100.0300 #### [facility] [address] [place], [address] Monocytes/100 WBC (Bld) 10.6 % High 0-10 [facility] Comment on above: Performed By: #### L 100.0100, M100.651, L3890.6005, L3890.6300, BTSPAT, L3890.6200, L3100.0300 #### [facility] [address] [place], [address] Neutrophils/100 WBC (Bld) 57.0 % Normal 47-70 [facility] Comment on above: Performed By: #### L 100.0100, M100.651, L3890.6005, L3890.6300, BTSPAT, L3890.6200, L3100.0300 #### [facility] [address] [place], [address] Nucleated RBC (Bld) [#/Vol] 0 10*3/uL Normal 0-5 [facility] Comment on above: Performed By: #### L 100.0100, M100.651, L3890.6005, L3890.6300, BTSPAT, L3890.6200, L3100.0300 #### [facility] [address] [place], [address] Platelet mean volume (Bld) [Entitic vol] 10.5 fL Normal 6.2-12.0 [facility] Comment on above: Performed By: #### L 100.0100, M100.651, L3890.6005, L3890.6300, BTSPAT, L3890.6200, L3100.0300 #### [facility] [address] [place], [address] Platelets (Bld) [#/Vol] 231 10*3/uL Normal 150-450 [facility] Comment on above: Performed By: #### L 100.0100, M100.651, L3890.6005, L3890.6300, BTSPAT, L3890.6200, L3100.0300 #### [facility] [address] [place], [address] RBC (Bld) [#/Vol] 4.26 10*6/uL Low 4.6-6.2 [facility] Comment on above: Performed By: #### L 100.0100, M100.651, L3890.6005, L3890.6300, BTSPAT, L3890.6200, L3100.0300 #### [facility] [address] [place], [address] RDW SD 50.4 fl High 35.1-43.9 [facility] Comment on above: Performed By: #### L 100.0100, M100.651, L3890.6005, L3890.6300, BTSPAT, L3890.6200, L3100.0300 #### [facility] [address] [place], [address] WBC (Bld) [#/Vol] 6.9 10*3/uL Normal 4.4-11.0 [facility] Comment on above: Performed By: #### L 100.0100, M100.651, L3890.6005, L3890.6300, BTSPAT, L3890.6200, L3100.0300 #### [facility] [address] [place], [address] HIV - WCHon 01-05-2024 HIV Non-Reactive Normal Nonreactive [facility] Comment on above: Order Comment: Reaso n for Exam: PAT Performed By: #### L 100.0100, M100.651, L3890.6005, L3890.6300, BTSPAT, L3890.6200, L3100.0300 ####[facility] [address] [place], [address] Hepatitis B Surface Antibody on 01-05-2024 HEP B Surf Ab Reactive Normal [facility] Comment on above: Order Comment: Reaso n for Exam: PAT Result Comment: Non Reactive: Inconsistent with immunity less than <10 mIU/mL Reactive: Consistent with immunity greater than or equal to 10 mIU/mL Performed By: #### L 100.0100, M100.651, L3890.6005, L3890.6300, BTSPAT, L3890.6200, L3100.0300 ####[facility] [address] [place], [place], [phone] Hepatitis C Antibodyon 01-04 Hepatitis C AB Non-Reactive Normal Nonreactive [facility] Comment on above: Order Comment: Reaso n for Exam: PAT Result Comment: Non Reactive: < 0.8 Equivocal: >/= 0.8 to < 1.0 Reactive: >/= 1.0 The CDC requires that a reactive/equivocal HCV antibody result be sent out for confirmation. HCV Quant by PCR testing. Performed By: #### L 100.0100, M100.651, L3890.6005, L3890.6300, BTSPAT, L3890.6200, L3100.0300 ####[facility] [address] [place], [address] Magnesiumon 01-05-2024 Magnesium [Mass/Vol] 2.3 mg/dL Normal 1.6-2.6 [facility] Comment on above: Performed By: #### L 501.5200 #### [facility] [address] [place], [address] Type AND Screen - PAT ONLYon 01-05-2024 ABO and Rh group Nom (Bld) Blood group B Rh(D) positive Normal [facility] Comment on above: Order Comment: Surge ry Date: 01/18/24 Reason for Laboratory Test PRE-OP [id number] No N N S ERAS, Anterior Cervical Disc Fusion C5-6 and C6-7 Performed By: #### L 100.0100, M100.651, L3890.6005, L3890.6300, BTSPAT, L3890.6200, L3100.0300 #### [facility] [address] [place], [address] CNOVon 01-04-2024 CNOV Office Visit (INTMWS ) JAI LUNA ([id number]) 1950 M Date Time Provider Department 01/04/24 2:40 PM NORM PARKER INTMWS During your visit today, we recorded the following information about you: Pulse Blood pressure Weight Height 64/minute 136/74 85.9 kg 1.645 m Norm Parker APRN.FURNITURE INSPECTOR 01/05/2024 3:29 PM Addendum SUBJECTIVE Jai Luna [...] done on 01/18/[address] Siddiqui at [facility]. History of having anesthesia: Yes. Any reaction [...] recent sickness. No history of CVA or AL. Sees [facility], had a stress test yesterday. [...] Embolism - 09/22/2023 Pvd (Peripheral Vascular Disease) ([facility]) - 09/22/2023 History of Dvt (Deep Vein Thrombosis) - 09/22/2023 Acute Deep Vein Thrombosis (Dvt) of Proximal Vein of Left Lower Extremity ([facility]) - 07/21/2022 Pulmonary Embolism and Infarction ([facility]) - 03/02/2022 Pulmonary Embolism ([facility]) - 02/13/2022 Hypokalemia - 02/10/2022 Urinary Retention - [address] ([facility]) - 01/28/2022 Rectal Cancer ([facility]) - 01/27/2022 Rectal Malignant Neoplasm ([facility]) - 05/29/2021 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 Normal [facility] Office Visiton 07-14-2023 Follow-up visit [id number] Silvio Luna 1950 M Date Provider Department Center 07/14/2023 28659-TXILILIZETTSABRINA [facility] None Family History Family Status - Relation Status Age at Mother Father Level of Service:16190 [place] OFFICE/OUTPATIENT NEW HIGH MDM 60 MINUTES Reason for Visit and Comments: New Patient [542] - Evaluation for second opinion for ongoing rectal bleeding since sx, s/p - robotic asst lap LAR w/ intraoperative angiogram w/ diverting loop ileostomy 01/27/[address] Cheung h/o of rectal squamos cell cancer diagnosed in 04/2021, h/o of chemothearpy OTHER [Other] - Pt accompanied by [facility] PATINSon 07-14-2023 PATINS - Recommendation is to identify the source of your rectal bleeding - Follow-up with Urology to evaluate for a fistula connection to the urethra - Further surgical intervention is recommended to be pursued with Dr. Cheung or through the [facility] given the complexity of your case. Further work-up prior to surgery should be performed through the [facility] as any further surgical intervention would be recommended through this institution. [facility] Progress Noteon 07-14-2023 Progress Note HPI: Patient [...] Reports passing urine when ejaculating since surgery. [facility] Progress Note COLORECTAL SURGERY OFFICE VISIT PATIENT [...] Medical History: Diagnosis Date Rectal cancer (CMS/HCC) ([facility]) S/P triple vessel bypass Past Surgical History: [...] friable, bleeding mucosa Exam chaperoned by female assistant office manager. ASSESSMENT/PLAN: Diagnosis Plan 1. Rectal bleeding External [...] further work-up/surgical intervention . Sabrina Muñiz MD [facility] [place] [address], [address] [place], [place] [address] p [phone] f [phone] Normal [facility] Absolute lymphocyte countOrd ered By: Raghu Reynolds on 07-08-2023 Lymphocytes Auto (Unsp spec) [#/Vol] 1.22 10*3/uL 0.83-4.51 [facility] Automated lymphocyte count a s percentage of total leukocytesOrdered By: Raghu Reynolds on 07-08-2023 Lymphocytes/100 WBC Auto (Unsp spec) 21.1 % 19-41 [facility] Basophil percentageOrdered B y: Raghu Reynolds on 07-08-2023 Basophils/100 WBC (Bld) 1.0 % 0-1 [facility] Chloride [Moles/Vol] 115 mmol/L 98-107 [facility] Eosinophils/100 WBC (Bld) 5.2 % 0-5 [facility] Glucose [Mass/Vol] 99 mg/dL 74-106 [facility] Hemoglobin (Bld) [Mass/Vol] 12.9 g/dL 13.0-16.5 [facility] Monocytes/100 WBC (Bld) 11.3 % 0-10 [facility] Neutrophils (Bld) [#/Vol] 3.5 10*3/uL 2.0-7.7 [facility] Neutrophils/100 WBC (Bld) 61.1 % 47-70 [facility] Potassium [Moles/Vol] 3.9 mmol/L 3.5-5.1 [facility] Sodium [Moles/Vol] 142 mmol/L 136-145 [facility] WBC (Bld) [#/Vol] 5.8 10*3/uL 4.4-11.0 [facility] Determination of erythrocyte mean corpuscular volume (MCV)Ordered By: Raghu Reynolds on 07-08-2023 MCV (RBC) [Entitic vol] 98.3 fL 80-94 [facility] Erythrocyte distribution wid th ratioOrdered By: Raghu Reynolds on 07-08-2023 Erythrocyte distribution width (RBC) [Ratio] 14.2 % 11.6-14.6 [facility] Erythrocyte distribution wid th standard deviationOrdered By: Raghu Reynolds on 07-08-2023 Erythrocyte distribution width (RBC) [Entitic vol] 51.8 fL 35.1-43.9 [facility] Hematocrit Auto (Bld) [Volum e fraction]Ordered By: Raghu Reynolds on 07-08-2023 Hematocrit (Bld) [Volume fraction] 40.7 % 40-54 [facility] Immature granulocytes/100 WB C Auto (Bld)Ordered By: Raghu Reynolds on 07-08-2023 Immature granulocytes/100 WBC (Bld) 0.300 % 0.0-0.9 [facility] Comment on above: IG% - Immature Granu locytes (promyelocytes, myelocytes and metamyelocytes) > 1% indicates that a LEFT SHIFT is Present. Laboratory - Chemistry and C hemistry - challengeOrdered By: Raghu Reynolds on 07-08-2023 CO2 [Moles/Vol] 24.0 mmol/L 21.0-32.0 [facility] Urea nitrogen/Creatinine [Mass ratio] 14.4 mg/mg 10-20 [facility] - Hematology and Cell countsOrdered By: Raghu Reynolds on 07-08-2023 MCH (RBC) [Entitic mass] 31.2 pg 27.0-32.0 [facility] MCHC (RBC) [Mass/Vol] 31.7 g/dL 32-36 [facility] Nucleated RBC/100 WBC (Bld) [Ratio] 0 % 0-5 [facility] Platelet mean volume (Bld) [Entitic vol] 9.9 fL 6.2-12.0 [facility] Platelets (Bld) [#/Vol] 236 10*3/uL 150-450 [facility] No Panel InformationOrdered By: Raghu Reynolds on 07-08-2023 Estimated Creatinine Clearance Calc 51.03 ml/min [facility] Estimated GFR (MDRD) Amer 68 mL/min >60 [facility] Comment on above: GFR Calc Estimated GFR (MDRD) Non-Af Amer 56 mL/min >60 [facility] Comment on above: Non- GFR Calc RBC Auto (Bld) [#/Vol]Ordere d By: Raghu Reynolds on 07-08-2023 RBC (Bld) [#/Vol] 4.14 10*6/uL 4.6-6.2 [facility] Serum or plasma calcium shae urement (mass/volume)Ordered By: Raghu Reynolds on 07-08-2023 Calcium [Mass/Vol] 8.6 mg/dL 8.5-10.1 [facility] Serum or plasma creatinine m easurement (mass/volume)Ordered By: Raghu Reynolds on 07-08-2023 Creatinine [Mass/Vol] 1.32 mg/dL 0.70-1.30 [facility] Comment on above: The validity of the calculated GFR & GFRAA in patients over 70 years has not been determined. Clinical correlation is essential. Serum or plasma urea nitroge n measurement (mass/volume)Ordered By: Raghu Pottsey on 07-08-2023 Urea nitrogen [Mass/Vol] 19 mg/dL 7-18 [facility] Thin prep Papanicolaou smear with manual screeningOrdered By: Raghu Gail on 07-08-2023 Thin prep Papanicolaou smear with manual screening 3 - [facility] 36on 06-16-2023 36 Spoke with patient scheduled for 07/14/23 @ 1:[address] Muñiz, pt verbalized understanding of appt date/time. Patient verbalized understanding of recommendation. Per Diana at Dr. Cheung office, patient was last seen in 05/20/2022, and will be faxing over notes. [facility] 36on 06-15-[address] Muñiz, please schedule next available appointment. Per Dr. Muñiz if symptoms worsen patient is to contact Dr. Cheung or go to the nearest ED for further evaluation. Per Dr. Muñiz request recent OV with Dr. Cheung for further review. [address] 06-11-[address] Bray office, they will be faxing patient records. [place] [address] Spoke with patient, per patient requesting to schedule appointment with Dr. Muñiz for second opinion. Per patient states he has an ileostomy, states output is good, no issues. Per patient concern is the rectal bleeding that has been going on since his surgery w/ Dr. Cheung at [facility]. Per our front office supervisor, we will review with Dr. Muñiz for appointment once we have records. If patient is bleeding profusely and feeling unwell patient should go to ED for further evaluation. Patient verbalized understanding. [place] [address] Patient submitted online appointment request, please call to discuss/schedule. FirstName : Jai LastName : Luna Pronouns : Other (please specify) PronounsOther : Email : [email or web address] Phone : [phone] Birthdate : 1950 12:00:00 AM BestTimeToCallBack : Any AppointmentDate : As soon as possible. PhysicianRequested : Dr. Sabrina Muñiz MD Symptoms : Bleeding 16 months after rectal cancer surgery on January 27, 2022. OptIn : False Normal [facility] MR IAC W AND WO IV CONTRASTo n 03-24-2023 MR IAC W AND WO IV CONTRAST Interpreted By: Toro Newman, STUDY: MR IAC W AND WO IV CONTRAST; 03/24/2023 2:41 pm INDICATION: Signs/Symptoms:acoust ic neuroma. COMPARISON: MRI IAC dated 02/10/2021. ACCESSION NUMBER(S): [id number] ORDERING CLINICIAN: GISELA CAN TECHNIQUE: Standard multiplanar [...] Toro Newman 03/24/2023 3:32 PM Dictation workstation: [id number] [facility] MR Internal auditory canal W O and [...] Toro Newman 03/24/2023 3:32 PM Dictation workstation: [id number] MMODAL Interpreted By: Toro Newman, STUDY: MR IAC W AND WO IV CONTRAST; 03/24/2023 2:41 pm INDICATION: Signs/Symptoms:acoust ic neuroma. COMPARISON: MRI IAC dated 02/10/2021. ACCESSION NUMBER(S): [id number] ORDERING CLINICIAN: GISELA CAN TECHNIQUE: Standard multiplanar [...] COMPARISON: MRI IAC dated 02/10/2021. ACCESSION NUMBER(S): [id number] ORDERING CLINICIAN: GISELA CAN TECHNIQUE: Standard multiplanar [...] Toro Newman 03/24/2023 3:32 PM Dictation workstation: [id number] [facility] Work Phone: Radiology Study observation (narrative) [facility] Work Phone: MR Internal auditory canal W O and W contrast IVOrdered By: Toro Newman on 03-24-2023 [facility] Work Phone: SURGICAL PATHOLOGYon 023 Case Report Surgical Pathology Report Case: [id number] Authorizing Provider: Justin William MD Collected: 12/03/2022 11:49 AM Ordering Location: [facility] Radiology Received: 12/03/2022 01:29 PM Pathologist: Alice Young MD Specimen: DEVICE [facility] Clinical History IVC filter [facility] [place] [facility] FINAL DIAGNOSIS A. Inferior vena cava, hardware removal: - Vascular filter (gross examination only). CT/AKA 12/04/22 12:56 PM [facility] Gross Description A. DEVICE Received in formalin, [...] 2022 10:37 AM Gross examination performed at [facility], [facility] [address] Performing Lab Diagnostic interpretation performed at [facility], [facility] [place] [address] CLIA# [id number] Door Attendant: Torey Walker M.D. [facility] BRIEF OP NOTon 12-03-2022 BRIEF OP NOT HNO ID: [id number] Author: Justin William MD Service: ? Author Type: Physician Type: Brief Op Note Filed: 12/03/2022 11:46 AM Note Text: BRIEF OPERATIVE / PROCEDURE NOTE LOG ID: [id number] SURGERY/PROCEDURE DATE: 12/03/2022 INCISION/PROCEDURE START TIME: 11:24 AM INCISION CLOSE/PROCEDURE END TIME: 11:37 AM SURGEON(S)/PROCEDURAL IST(S) AND PARCEL POST DELIVERY(S): Surgeon(s) and Role: * Justin William MD [...] DATE: December 03, 2022 TIME: 11:45 AM [facility] [place] [facility] HISTORY PHYSICALon HISTORY PHYSICAL HNO ID: [id number] Author: Justin William MD Service: ? Author [...] Coronary atherosclerosis of unspecified type of vessel, [place] or graft Coronary artery disease Diverticulosis of [...] PROSTATE SURGERY HX STRABISMUS RECESSION/RESCJ 1 [facility]NT[facility] Strabismus surgery TONSILLECTOMY [...] mouth daily at bedtime. For cholesterol per [facility]. coenzyme Q10 (COENZYME Q-10) 100 [...] DATE: December 03, 2022 TIME: 11:15 AM [facility] [place] [facility] IR INFERIOR CAVA VENOGRAMon 12-03-2022 IR INFERIOR [...] was advanced. Retrieval sheath size(s): 11 F Qnovo retrieval sheath The filter was captured, collapsed into the sheath, and removed in its entirety. Filter capture technique: Standard technique, employing the loop snare included in the filter retrieval kit Post-retrieval venography Post-retrieval venography of the IVC was performed. IVC patency post: Patent Additional findings: None Additional Details Additional description of proced (more content not included)... Normal [facility] IR INFERIOR CAVA VENOGRAM (A V,FV,CHRISTIAN,MM,UN)on 12-03-2022 [facility] PT panel Coag (PPP)on 2022 INR Coag (PPP) [Relative time] 1.0 {INR} Normal 0.9-1.3 [facility] Comment on above: Order Comment: Speci men Type: BLOOD SPECIMEN Ordering Facility: [facility] Address: [address] [place] [address] [place] [address] Result Comment: Paulina min K Antagonist (VKA) Therapeutic Range: INR 2 to 3 (Target INR of 2.5) Note: For patients treated with VKA drugs, such as warfarin, the [place] [employer] 2012 Guideline recommends [...] 2012, 141:7S-47S Jose E SOLIS et al. [facility] 2017, 70: 252-289 Performed By: #### 3 4528-0 #### [facility] CLIA [id number] [address] STATES OF [facility] PT Coag (PPP) [Time] 10.9 s Normal 9.7-13.0 [facility] Comment on above: Order Comment: Howard pollard Type: BLOOD SPECIMEN Ordering Facility: [facility] Address: [address] [place] [address] Result Comment: [facility] Performed By: #### 3 4528-0 #### [facility] CLIA [id number] [address] [place] INR Coag (PPP) [Relative time] 1.0 {INR} 0.9 - 1.3 [facility] PT Coag (PPP) [Time] 10.9 s 9.7 - 1 3.0 sec [facility] SURGICAL PATHOLOGYon 023 CASE REPORT Normal [facility] Comment on above: Order Comment: Howard pollard Type: TISSUE SPECIMEN Ordering Facility: [facility] Address: [address] [place] [address] Result Comment: Surg ical Pathology Report Case: [id number] Authorizing Provider: Justin William MD Collected: 12/03/2022 11:49 AM Ordering Location: [facility] Radiology Received: 12/03/2022 01:29 PM Pathologist: Alice Young MD Specimen: DEVICE Performed By: #### S #### [facility] CLIA [id number] [address] [place] [address] [place] CLINICAL HISTORY IVC filter Normal [facility] Comment on above: Order Comment: Speci men Type: TISSUE SPECIMEN Ordering Facility: [facility] Address: [address] [place] [address] Performed By: #### S #### [facility] CLIA [id number] [address] [place] [address] [place] FINAL DIAGNOSIS Normal [facility] Comment on above: Order Comment: Speci men Type: TISSUE SPECIMEN Ordering Facility: [facility] Address: [address] [place] [address] Result Comment: A. I nferior vena cava, hardware removal: - Vascular filter (gross examination only). CT/AKA 12/04/22 12:56 PM Performed By: #### S #### [facility] CLIA [id number] [address] [place] [address] [place] FINAL PERFORMING LAB Normal [facility] Comment on above: Order Comment: Speci men Type: TISSUE SPECIMEN Ordering Facility: [facility] Address: [address] [place] [address] Result Comment: Diag nostic interpretation performed at [facility], [address] [place] [address] CLIA# [id number] Door Attendant: Torey Walker M.D. Performed By: #### S #### [facility] CLIA [id number] [address] [place] [address] [place] GROSS DESCRIPTION A. DEVICE Normal [facility] Comment on above: Order Comment: Speci men Type: TISSUE SPECIMEN Ordering Facility: [facility] Address: [address] [place] [address] Result Comment: Rece ived in formalin, labeled [...] 2022 10:37 AM Gross examination performed at [facility], [address] [place] [address], [place] [address] Performed By: #### S #### [facility] CLIA [id number] [address] [place] [address] [id number] Ayala 11-27-2022 [place] Telephone (MEXR) JAI LUNA ([id number]) 1950 M Date Time Provider Department 11/27/22 REBECCA YEH During your visit today, we recorded the following information about you: Rebecca Yeh RN 11/27/2022 2:47 PM Signed You are scheduled for a IVC Filter Removal, On 12/03/2022. You are to arrive at 0900 am for a 1030 procedure time and Report to [facility]: Entrance A, Elevators to first floor, Ambulatory [...] 1.5 or less for day of procedure. Quality Systems Specialist/Transportation : How will you be arriving for your procedure? Private car. You will need a responsible adult to accompany you to and from the procedure. Your courtesy driver is required to stay with you until you are taken into the procedure room. Please call with any questions [phone] opt 2 to speak with the Radiology Nurses Allergies As of Date: 11/27/2022 Noted Allergy Reaction CAT DANDER 02/27/2022 14 - Other: See Comments CLINDAMYCIN 03/28/2021 8 - GI Upset CODEINE 06/20/2007 8 - GI Upset Date Reviewed: 11/03/2022 Reviewed by: Maddison Kohler RN - Fully Assessed Reason for Visit: Radiology Pre Procedure Instructions [3846] Prescriptions as of 11/27/2022 - warfarin (COUMADIN) [...] Encounter Status:Closed by REBECCA YEH on 11/27/22 [facility] HBV surface Ab Ql (S)on 04-30 HBV surface Ab Qn (S) >=12.0 0 mIU/mL [facility] HEP B SURF ABon 05-20-2022 HBV surface Ab Ql (S) Positive Positive [facility] HEP B SURF AG SCRNon 023 HBV surface Ag Ql (S) Negative Negative [facility] XR COLON SINGLE CONTRASTon 0 05-20-2022 [facility] POTASSIUM BLDon 04-07-2022 Potassium [Moles/Vol] 5.3 mmol/L High 3.7 - 5.1 mmol/L [facility] CBC panel Auto (Bld)on 04-06 Erythrocyte distribution width (RBC) [Ratio] 17.0 % High 11.5 - 15.0 % [facility] Hematocrit (Bld) [Volume fraction] 43.2 % 39.0 - 51.0 % [facility] Hemoglobin (Bld) [Mass/Vol] 13.3 g/dL 13.0 - 17.0 g/dL [facility] MCH (RBC) [Entitic mass] 31.4 pg 26. 0 - 34.0 pg [facility] MCHC (RBC) [Mass/Vol] 30.8 g/dL 30.5 - 36.0 g/dL [facility] MCV (RBC) [Entitic vol] 101.9 fL High 80.0 - 100.0 fL [facility] Nucleated RBC (Bld) [#/Vol] <0.01 k/uL [facility] Platelet mean volume (Bld) [Entitic vol] 10.0 fL 9.0 - 12.7 fL [facility] Platelets (Bld) [#/Vol] 478 10*3/uL High 150 - 400 k/uL [facility] RBC (Bld) [#/Vol] 4.24 10*6/uL 4.20 - 6.0 0 m/uL [facility] WBC (Bld) [#/Vol] 8.48 10*3/uL 3.70 - 11. 00 k/uL [facility] Basic metabolic 2000 panelon 03-19-2022 Anion gap [Moles/Vol] 14 mmol/L 9 - 18 mmol/L [facility] Calcium [Mass/Vol] 9.2 mg/dL 8.5 - 10. 2 mg/dL [facility] Chloride [Moles/Vol] 104 mmol/L 97 - 10 5 mmol/L [facility] CO2 [Moles/Vol] 20 mmol/L Low 22 - 30 mmol/L [facility] Creatinine [Mass/Vol] 0.75 mg/dL 0.73 - 1.22 mg/dL [facility] Estimated Glomerular Filtration Rate 96 mL/min/1.73m >=60 mL/min/1.73m [facility] Glucose [Mass/Vol] 92 mg/dL 74 - 99 mg/dL [facility] Potassium [Moles/Vol] 4.3 mmol/L 3.7 - 5.1 mmol/L [facility] Sodium [Moles/Vol] 138 mmol/L 136 - 144 mmol/L [facility] Urea nitrogen [Mass/Vol] 17 mg/dL 9 - 24 mg/d L [facility] CBC panel Auto (Bld)on 03-18 Erythrocyte distribution width (RBC) [Ratio] 19.2 % High 11.5 - 15.0 % [facility] Hematocrit (Bld) [Volume fraction] 34.2 % Low 39.0 - 51.0 % [facility] Hemoglobin (Bld) [Mass/Vol] 10.2 g/dL Low 13.0 - 17.0 g/dL [facility] MCH (RBC) [Entitic mass] 31.1 pg 26. 0 - 34.0 pg [facility] MCHC (RBC) [Mass/Vol] 29.8 g/dL Low 30.5 - 36.0 g/dL [facility] MCV (RBC) [Entitic vol] 104.3 fL High 80.0 - 100.0 fL [facility] Nucleated RBC (Bld) [#/Vol] <0.01 k/uL [facility] Platelet mean volume (Bld) [Entitic vol] 9.6 fL 9.0 - 12.7 fL [facility] Platelets (Bld) [#/Vol] 487 10*3/uL High 150 - 400 k/uL [facility] RBC (Bld) [#/Vol] 3.28 10*6/uL Low 4.20 - 6.0 0 m/uL [facility] WBC (Bld) [#/Vol] 7.81 10*3/uL 3.70 - 11. 00 k/uL [facility] Influenza virus A and B and SARS-CoV-2 (COVID-19) Ag panel - Upper respiratory specimOrdered By: Dr. Avery on 03-02-2022 SARS-CoV-2 (COVID-19) RNA RODGER+probe Ql (Resp) [facility] Absolute lymphocyte countOrd ered By: ED PROVIDER on 03-01-2022 Lymphocytes Auto (Unsp spec) [#/Vol] 1.14 10*3/uL 0.83-4.51 [facility] Basophil percentageOrdered B y: ED PROVIDER on 03-01-2022 Basophils/100 WBC (Bld) 0.5 % 0-1 [facility] Chloride [Moles/Vol] 107 mmol/L 98-107 [facility] Eosinophils/100 WBC (Bld) 1.6 % 0-5 [facility] Glucose [Mass/Vol] 125 mg/dL 74-106 [facility] Comment on above: Fasting Glucose resu lt from 100 to 125 mg/dL suggests IMPAIRED HOMEOSTASIS per A.D.A. criteria. Neutrophils (Bld) [#/Vol] 8.5 10*3/uL 2.0-7.7 [facility] Neutrophils/100 WBC (Bld) 75.2 % 47-70 [facility] Potassium [Moles/Vol] 3.8 mmol/L 3.5-5.1 [facility] Comment on above: Slight Hemolysis, Re sult may be falsely increased. Sodium [Moles/Vol] 138 mmol/L 136-145 [facility] WBC (Bld) [#/Vol] 11.3 10*3/uL 4.4-11.0 [facility] Basophil percentageOrdered B y: Dr. Turpin on 03-01-2022 Bilirubin [Mass/Vol] 1.00 mg/dL 0.20-1.00 [facility] Comment on above: For patients on eltr ombopag therapy, use of Dimension [place] TBIL is not recommended. Protein [Mass/Vol] 6.9 g/dL 6.4-8.2 [facility] Blood erythrocytes count (nu mber/volume)Ordered By: ED PROVIDER on 03-01-2022 RBC (Bld) [#/Vol] 3.75 10*6/uL 4.6-6.2 [facility] Blood hemoglobin measurement (mass/volume)Ordered By: ED PROVIDER on 03-01-2022 Hemoglobin (Bld) [Mass/Vol] 11.3 g/dL 13.0-16.5 [facility] Blood lymphocytes/100 leukoc ytesOrdered By: ED PROVIDER on 03-01-2022 Lymphocytes/100 WBC (Bld) 10.1 % 19-41 [facility] Blood monocytes/100 leukocyt esOrdered By: ED PROVIDER on 03-01-2022 Monocytes/100 WBC (Bld) 10.7 % 0-10 [facility] Blood platelet mean volumeOr dered By: ED PROVIDER on 03-01-2022 Platelet mean volume (Bld) [Entitic vol] 9.6 fL 6.2-12.0 [facility] Determination of erythrocyte mean corpuscular volume (MCV)Ordered By: ED PROVIDER on 03-01-2022 MCV (RBC) [Entitic vol] 95.5 fL 80-94 [facility] Direct bilirubinOrdered By: Dr. Turpin on 03-01-2022 Bilirubin.direct [Mass/Vol] 0.28 mg/dL 0.00-0.30 [facility] Hematocrit Auto (Bld) [Volum e fraction]Ordered By: ED PROVIDER on 03-01-2022 Hematocrit (Bld) [Volume fraction] 35.8 % 40-54 [facility] INR in Blood by Coagulation assayOrdered By: Dr. Turpin on 03-01-2022 INR Coag (Bld) [Relative time] 1.3 {INR} [facility] Laboratory - Chemistry and C hemistry - challengeOrdered By: Dr. Turpin on 03-01-2022 ALP [Catalytic activity/Vol] 109 U/L 45-117 [facility] ALT [Catalytic activity/Vol] 46 U/L 16-61 [facility] Globulin (S) [Mass/Vol] 3.9 g/dL 2.2-4.2 [facility] Laboratory - Chemistry and C hemistry - challengeOrdered By: ED PROVIDER on 03-01-2022 CO2 [Moles/Vol] 25.0 mmol/L 21.0-32.0 [facility] Urea nitrogen/Creatinine [Mass ratio] 18.0 mg/mg 10-20 [facility] Laboratory - CoagulationOrde red By: Dr. Turpin on 03-01-2022 aPTT Coag (Bld) [Time] 30.2 s 24.1-36.2 [facility] PT Coag (PPP) [Time] 15.6 s 11.7-14.9 [facility] Laboratory - Hematology and Cell countsOrdered By: ED PROVIDER on 03-01-2022 Erythrocyte distribution width (RBC) [Entitic vol] 60.0 fL 35.1-43.9 [facility] Erythrocyte distribution width (RBC) [Ratio] 17.5 % 11.6-14.6 [facility] Immature granulocytes/100 WBC (Bld) 1.900 % 0.0-0.9 [facility] Comment on above: IG% - Immature Granu locytes (promyelocytes, myelocytes and metamyelocytes) > 1% indicates that a LEFT SHIFT is Present. MCH (RBC) [Entitic mass] 30.1 pg 27.0-32.0 [facility] Nucleated RBC/100 WBC (Bld) [Ratio] 0 % 0-5 [facility] MCHC Auto (RBC) [Mass/Vol]Or dered By: ED PROVIDER on 03-01-2022 MCHC (RBC) [Mass/Vol] 31.6 g/dL 32-36 [facility] No Panel InformationOrdered By: ED PROVIDER on 03-01-2022 Estimated Creatinine Clearance Calc 63.43 ml/min [facility] Estimated GFR (MDRD) Amer 101 mL/min >60 [facility] Comment on above: GFR Calc Estimated GFR (MDRD) Non-Af Amer 83 mL/min >60 [facility] Comment on above: Non- GFR Calc Platelets bldOrdered By: ED PROVIDER on 03-01-2022 Platelets (Bld) [#/Vol] 398 10*3/uL 150-450 [facility] Serum or plasma albumin shae urement (mass/volume)Ordered By: Dr. Turpin on 03-01-2022 Albumin [Mass/Vol] 3.0 g/dL 3.2-5.0 [facility] Serum or plasma calcium shae urement (mass/volume)Ordered By: ED PROVIDER on 03-01-2022 Calcium [Mass/Vol] 8.1 mg/dL 8.5-10.1 [facility] Serum or plasma creatinine m easurement (mass/volume)Ordered By: ED PROVIDER on 03-01-2022 Creatinine [Mass/Vol] 0.95 mg/dL 0.70-1.30 [facility] Comment on above: The validity of the calculated GFR & GFRAA in patients over 70 years has not been determined. Clinical correlation is essential. Serum or plasma urea nitroge n measurement (mass/volume)Ordered By: ED PROVIDER on 03-01-2022 Urea nitrogen [Mass/Vol] 17 mg/dL 7-18 [facility] Thin prep Papanicolaou smear with manual screeningOrdered By: Dr. Turpin on 03-01-2022 Thin prep Papanicolaou smear with manual screening 67 U/L 15-37 [facility] Comment on above: Slight Hemolysis, Re sult may be falsely increased. Thin prep Papanicolaou smear with manual screeningOrdered By: ED PROVIDER on 03-01-2022 Thin prep Papanicolaou smear with manual screening 6 5-15 [facility] Absolute lymphocyte countOrd ered By: Dr. Villafana on 02-27-2022 Lymphocytes Auto (Unsp spec) [#/Vol] 1.26 10*3/uL 0.83-4.51 [facility] Basophil percentageOrdered B y: Dr. Villafana on 02-27-2022 Basophils/100 WBC (Bld) 0.7 % 0-1 [facility] Chloride [Moles/Vol] 106 mmol/L 98-107 [facility] Eosinophils/100 WBC (Bld) 3.2 % 0-5 [facility] Glucose [Mass/Vol] 104 mg/dL 74-106 [facility] Comment on above: Fasting Glucose resu lt from 100 to 125 mg/dL suggests IMPAIRED HOMEOSTASIS per A.D.A. criteria. Neutrophils (Bld) [#/Vol] 7.2 10*3/uL 2.0-7.7 [facility] Neutrophils/100 WBC (Bld) 65.8 % 47-70 [facility] Potassium [Moles/Vol] 3.5 mmol/L 3.5-5.1 [facility] Sodium [Moles/Vol] 137 mmol/L 136-145 [facility] WBC (Bld) [#/Vol] 10.9 10*3/uL 4.4-11.0 [facility] Blood erythrocytes count (nu mber/volume)Ordered By: Dr. Villafana on 02-27-2022 RBC (Bld) [#/Vol] 3.21 10*6/uL 4.6-6.2 [facility] Blood hemoglobin measurement (mass/volume)Ordered By: Dr. Villafana on 02-27-2022 Hemoglobin (Bld) [Mass/Vol] 9.6 g/dL 13.0-16.5 [facility] Blood lymphocytes/100 leukoc ytesOrdered By: Dr. Villafana on 02-27-2022 Lymphocytes/100 WBC (Bld) 11.5 % 19-41 [facility] Blood manual differential co mment interpretation (narrative result)Ordered By: Dr. Villafana on 02-27-2022 Manual differential comment Glenn (Bld) [Interp] SCANNED [facility] Blood monocytes/100 leukocyt esOrdered By: Dr. Villafana on 02-27-2022 Monocytes/100 WBC (Bld) 14.3 % 0-10 [facility] Blood platelet mean volumeOr dered By: Dr. Villafana on 02-27-2022 Platelet mean volume (Bld) [Entitic vol] 9.3 fL 6.2-12.0 [facility] Determination of erythrocyte mean corpuscular volume (MCV)Ordered By: Dr. Villafana on 02-27-2022 MCV (RBC) [Entitic vol] 95.6 fL 80-94 [facility] Hematocrit Auto (Bld) [Volum e fraction]Ordered By: Dr. Villafana on 02-27-2022 Hematocrit (Bld) [Volume fraction] 30.7 % 40-54 [facility] Laboratory - Chemistry and C hemistry - challengeOrdered By: Dr. Villafana on 02-27-2022 CO2 [Moles/Vol] 25.0 mmol/L 21.0-32.0 [facility] Urea nitrogen/Creatinine [Mass ratio] 23.0 mg/mg 10-20 [facility] Laboratory - Hematology and Cell countsOrdered By: Dr. Villafana on 02-27-2022 Erythrocyte distribution width (RBC) [Entitic vol] 59.3 fL 35.1-43.9 [facility] Erythrocyte distribution width (RBC) [Ratio] 17.0 % 11.6-14.6 [facility] Immature granulocytes/100 WBC (Bld) 4.500 % 0.0-0.9 [facility] Comment on above: IG% - Immature Granu locytes (promyelocytes, myelocytes and metamyelocytes) > 1% indicates that a LEFT SHIFT is Present. MCH (RBC) [Entitic mass] 29.9 pg 27.0-32.0 [facility] Nucleated RBC/100 WBC (Bld) [Ratio] 0 % 0-5 [facility] MCHC Auto (RBC) [Mass/Vol]Or dered By: Dr. Villafana on 02-27-2022 MCHC (RBC) [Mass/Vol] 31.3 g/dL 32-36 [facility] No Panel InformationOrdered By: Dr. Villafana on 02-27-2022 Estimated Creatinine Clearance Calc 60.26 ml/min [facility] Estimated GFR (MDRD) Amer 144 mL/min >60 [facility] Comment on above: GFR Calc Estimated GFR (MDRD) Non-Af Amer 119 mL/min >60 [facility] Comment on above: Non- GFR Calc Platelets bldOrdered By: Dr. Villafana on 02-27-2022 Platelets (Bld) [#/Vol] 369 10*3/uL 150-450 [facility] Serum or plasma calcium shae urement (mass/volume)Ordered By: Dr. Villafana on 02-27-2022 Calcium [Mass/Vol] 7.7 mg/dL 8.5-10.1 [facility] Serum or plasma creatinine m easurement (mass/volume)Ordered By: Dr. Villafana on 02-27-2022 Creatinine [Mass/Vol] 0.70 mg/dL 0.70-1.30 [facility] Comment on above: The validity of the calculated GFR & GFRAA in patients over 70 years has not been determined. Clinical correlation is essential. Serum or plasma urea nitroge n measurement (mass/volume)Ordered By: Dr. Villafana on 02-27-2022 Urea nitrogen [Mass/Vol] 16 mg/dL 7-18 [facility] Thin prep Papanicolaou smear with manual screeningOrdered By: Dr. Villafana on 02-27-2022 Thin prep Papanicolaou smear with manual screening 6 5-15 [facility] Laboratory - Microbiology an d Antimicrobial susceptibilityOrdered By: Dr. Salazar on 02-06-2022 Bacteria identified Cx Nom (Bld) No growth in 5 days. [facility] Absolute lymphocyte countOrd ered By: Dr. Salazar on 02-01-2022 Lymphocytes Auto (Unsp spec) [#/Vol] 3.22 10*3/uL 0.83-4.51 [facility] Basophil percentageOrdered B y: Dr. Salazar on 02-01-2022 Basophil percentage 0 SEEN /hpf 0-5 [facility] Basophils/100 WBC (Bld) 0.5 % 0-1 [facility] Bilirubin [Mass/Vol] 0.70 mg/dL 0.20-1.00 [facility] Comment on above: For patients on eltr ombopag therapy, use of Dimension [place] TBIL is not recommended. Chloride [Moles/Vol] 104 mmol/L 98-107 [facility] Eosinophils/100 WBC (Bld) 3.3 % 0-5 [facility] Glucose [Mass/Vol] 261 mg/dL 74-106 [facility] Comment on above: Glucose result great er than or equal to 200 mg/dLsuggests DIABETES MELLITUS per A.D.A. criteria. Lactate [Moles/Vol] 8.7 mmol/L 0.4-2.0 [facility] Neutrophils (Bld) [#/Vol] 5.9 10*3/uL 2.0-7.7 [facility] Neutrophils/100 WBC (Bld) 53.2 % 47-70 [facility] Potassium [Moles/Vol] 3.4 mmol/L 3.5-5.1 [facility] Protein [Mass/Vol] 5.4 g/dL 6.4-8.2 [facility] Sodium [Moles/Vol] 136 mmol/L 136-145 [facility] WBC (Bld) [#/Vol] 11.1 10*3/uL 4.4-11.0 [facility] Bilirubin Test strip Ql (U)O rdered By: Dr. Salazar on 02-01-2022 Bilirubin Ql (U) Negative Negative [facility] Blood erythrocytes count (nu mber/volume)Ordered By: Dr. Salazar on 02-01-2022 RBC (Bld) [#/Vol] 3.26 10*6/uL 4.6-6.2 [facility] Blood hemoglobin measurement (mass/volume)Ordered By: Dr. Salazar on 02-01-2022 Hemoglobin (Bld) [Mass/Vol] 10.6 g/dL 13.0-16.5 [facility] Blood lymphocytes/100 leukoc ytesOrdered By: Dr. Salazar on 02-01-2022 Lymphocytes/100 WBC (Bld) 29.1 % 19-41 [facility] Blood monocytes/100 leukocyt esOrdered By: Dr. Salazar on 02-01-2022 Monocytes/100 WBC (Bld) 9.7 % 0-10 [facility] Blood platelet mean volumeOr dered By: Dr. Salazar on 02-01-2022 Platelet mean volume (Bld) [Entitic vol] 10.4 fL 6.2-12.0 [facility] COVID-19 virus antigen assay Ordered By: Dr. Salazar on 02-01-2022 SARS-CoV-2 (COVID-19) Ag IA.rapid Ql (Resp) [facility] Determination of erythrocyte mean corpuscular volume (MCV)Ordered By: Dr. Salazar on 02-01-2022 MCV (RBC) [Entitic vol] 100.9 fL 80-94 [facility] Direct bilirubinOrdered By: Dr. Salazar on 02-01-2022 Bilirubin.direct [Mass/Vol] 0.17 mg/dL 0.00-0.30 [facility] Hematocrit Auto (Bld) [Volum e fraction]Ordered By: Dr. Salazar on 02-01-2022 Hematocrit (Bld) [Volume fraction] 32.9 % 40-54 [facility] INR in Blood by Coagulation assayOrdered By: Dr. Salazar on 02-01-2022 INR Coag (Bld) [Relative time] 1.3 {INR} [facility] Ketones Test strip Ql (U)Ord ered By: Dr. Salazar on 02-01-2022 Ketones Ql (U) Negative Negative [facility] Laboratory - Chemistry and C hemistry - challengeOrdered By: Dr. Salazar on 02-01-2022 ALP [Catalytic activity/Vol] 58 U/L 45-117 [facility] ALT [Catalytic activity/Vol] 20 U/L 16-61 [facility] CO2 [Moles/Vol] 18.0 mmol/L 21.0-32.0 [facility] Globulin (S) [Mass/Vol] 3.0 g/dL 2.2-4.2 [facility] Lipase [Catalytic activity/Vol] 116 U/L 73-393 [facility] Urea nitrogen/Creatinine [Mass ratio] 13.7 mg/mg 10-20 [facility] Laboratory - CoagulationOrde red By: Dr. Salazar on 02-01-2022 aPTT Coag (Bld) [Time] 23.8 s 24.1-36.2 [facility] PT Coag (PPP) [Time] 15.9 s 11.7-14.9 [facility] Laboratory - Hematology and Cell countsOrdered By: Dr. Salazar on 02-01-2022 Erythrocyte distribution width (RBC) [Entitic vol] 47.9 fL 35.1-43.9 [facility] Erythrocyte distribution width (RBC) [Ratio] 12.9 % 11.6-14.6 [facility] Immature granulocytes/100 WBC (Bld) 4.200 % 0.0-0.9 [facility] Comment on above: IG% - Immature Granu locytes (promyelocytes, myelocytes and metamyelocytes) > 1% indicates that a LEFT SHIFT is Present. MCH (RBC) [Entitic mass] 32.5 pg 27.0-32.0 [facility] Nucleated RBC/100 WBC (Bld) [Ratio] 0 % 0-5 [facility] MCHC Auto (RBC) [Mass/Vol]Or dered By: Dr. Salazar on 02-01-2022 MCHC (RBC) [Mass/Vol] 32.2 g/dL 32-36 [facility] Mucus LM Ql (Urine sed)Order ed By: Dr. Salazar on 02-01-2022 Mucus Ql (Urine sed) 0 SEEN /hpf [facility] Nitrite Test strip Ql (U)Ord ered By: Dr. Salazar on 02-01-2022 Nitrite Ql (U) Negative Negative [facility] No Panel InformationOrdered By: Dr. Salazar on 02-01-2022 Estimated Creatinine Clearance Calc 34.94 ml/min [facility] Estimated GFR (MDRD) Amer 50 mL/min >60 [facility] Comment on above: GFR Calc Estimated GFR (MDRD) Non-Af Amer 41 mL/min >60 [facility] Comment on above: Non- GFR Calc Troponin I High Sensitivity 10 pg/mL 3.0-78.0 [facility] Comment on above: Please Note: New Adriane t Units and Gender Specific Reference Ranges. For more information see Policy Stat Procedure [place] High Sensitivity Troponin (TNIH) and attachments. Platelets bldOrdered By: Dr. Saalzar on 02-01-2022 Platelets (Bld) [#/Vol] 220 10*3/uL 150-450 [facility] Protein Test strip Ql (U)Ord ered By: Dr. Salazar on 02-01-2022 Protein Ql (U) 15 mg/dl Negative [facility] Serum or plasma albumin shae urement (mass/volume)Ordered By: Dr. Salazar on 02-01-2022 Albumin [Mass/Vol] 2.4 g/dL 3.2-5.0 [facility] Serum or plasma calcium shae urement (mass/volume)Ordered By: Dr. Salazar on 02-01-2022 Calcium [Mass/Vol] 7.8 mg/dL 8.5-10.1 [facility] Serum or plasma creatinine m easurement (mass/volume)Ordered By: Dr. Salazar on 02-01-2022 Creatinine [Mass/Vol] 1.75 mg/dL 0.70-1.30 [facility] Comment on above: The validity of the calculated GFR & GFRAA in patients over 70 years has not been determined. Clinical correlation is essential. Serum or plasma urea nitroge n measurement (mass/volume)Ordered By: Dr. Salazar on 02-01-2022 Urea nitrogen [Mass/Vol] 24 mg/dL 7-18 [facility] Squamous epithelial cells de tection in urine sediment by light microscopyOrdered By: Dr. Salazar on 02-01-2022 Epithelial cells.squamous LM Ql (Urine sed) 0 SEEN /hpf 0-5 [facility] Thin prep Papanicolaou smear with manual screeningOrdered By: Dr. Salazar on 02-01-2022 Thin prep Papanicolaou smear with manual screening 17 U/L 15-37 [facility] Thin prep Papanicolaou smear with manual screening 14 5-15 [facility] Urine blood detectionOrdered By: Dr. Salazar on 02-01-2022 RBC Ql (U) Negative Negative [facility] RBC Ql (U) 0 SEEN /hpf 0-5 [facility] Urine clarityOrdered By: Dr. Salazar on 02-01-2022 Clarity (U) Clear Clear [facility] Urine color determinationOrd ered By: Dr. Salazar on 02-01-2022 Color (U) Yellow Yellow [facility] Urine glucose detectionOrder ed By: Dr. Salazar on 02-01-2022 Glucose Ql (U) Normal mg/dl Normal [facility] Urine leukocyte esterase det ection by dipstickOrdered By: Dr. Salazar on 02-01-2022 Leukocyte esterase Test strip Ql (U) Negative Negative [facility] Urine pHOrdered By: Dr. Blanka carroll on 02-01-2022 pH (U) 5.0 [pH] 5.0 - 8.0 [facility] Urine sediment bacteria coun t by microscopy (number/high power field)Ordered By: Dr. Salazar on 02-01-2022 Bacteria LM.HPF (Urine sed) [#/Area] 0 /[HPF] None Seen [facility] Urine specific gravity measu rementOrdered By: Dr. Salazar on 02-01-2022 Specific gravity (U) [Rel density] 1.025 1.002-1.030 [facility] Urobilinogen Auto test strip Ql (U)Ordered By: Dr. Salazar on 02-01-2022 Urobilinogen Ql (U) Normal mg/dl Normal [facility] NT PRO BNPon 01-07-2022 Natriuretic peptide.B prohormone N-Terminal [Mass/Vol] 139 pg/mL High <125 pg/mL [facility] No Panel Informationon 01-07 [facility] TROPONIN Ton 01-07-2022 Troponin T.cardiac [Mass/Vol] 0.000 - 0.029 ng/mL [facility] SIGMOIDOSCOPYon 09-17-2021 [facility] CBC W Auto Differential pane l (Bld)on 07-07-2021 Abs Immature Gran 0.03 k/uL <0.10 k/uL [facility] Basophils (Bld) [#/Vol] 10*3/uL <0.11 k/uL C [facility] Basophils/100 WBC (Bld) 0.5 % C [facility] Differential cell count method Nom (Bld) Auto [facility] Eosinophils (Bld) [#/Vol] 0.07 10*3/uL <0.46 k/uL [facility] Eosinophils/100 WBC (Bld) 1.7 % [facility] Erythrocyte distribution width (RBC) [Ratio] 14.9 % 11.5 - 15.0 % [facility] Hematocrit (Bld) [Volume fraction] 38.0 % Low 39.0 - 51.0 % [facility] Hemoglobin (Bld) [Mass/Vol] 13.1 g/dL 13.0 - 17.0 g/dL [facility] Immature Gran % 0.7 % [facility] Lymphocytes (Bld) [#/Vol] 0.47 10*3/uL Low 1.00 - 4.00 k/uL [facility] Lymphocytes/100 WBC (Bld) 11.6 % [facility] MCH (RBC) [Entitic mass] 32.7 pg 26. 0 - 34.0 pg [facility] MCHC (RBC) [Mass/Vol] 34.5 g/dL 30.5 - 36.0 g/dL [facility] MCV (RBC) [Entitic vol] 94.8 fL 80.0 - 100.0 fL [facility] Monocytes (Bld) [#/Vol] 0.72 10*3/uL <0.87 k/uL [facility] Monocytes/100 WBC (Bld) 17.7 % C [facility] Neutrophils (Bld) [#/Vol] 2.75 10*3/uL 1.45 - 7.50 k/uL [facility] Neutrophils/100 WBC (Bld) 67.8 % [facility] Nucleated RBC (Bld) [#/Vol] 10*3/uL <0.01 k/uL [facility] Nucleated RBC/100 WBC (Bld) [Ratio] 0.0 /100 WBC [facility] Platelet mean volume (Bld) [Entitic vol] 9.1 fL 9.0 - 12.7 fL [facility] Platelets (Bld) [#/Vol] 112 10*3/uL Low 150 - 400 k/uL [facility] RBC (Bld) [#/Vol] 4.01 10*6/uL Low 4.20 - 6.0 0 m/uL [facility] WBC (Bld) [#/Vol] 4.06 10*3/uL 3.70 - 11. 00 k/uL [facility] Comprehensive metabolic 2000 panelon 07-07-2021 Albumin [Mass/Vol] 4.3 g/dL 3.9 - 4.9 g/dL [facility] ALP [Catalytic activity/Vol] 86 U/L 38 - 113 U/L [facility] ALT [Catalytic activity/Vol] 30 U/L 10 - 54 U/L [facility] Anion gap [Moles/Vol] 8 mmol/L Low 9 - 18 mmol/L [facility] AST [Catalytic activity/Vol] 35 U/L 14 - 40 U/L [facility] Bilirubin [Mass/Vol] 0.3 mg/dL 0.2 - 1 .3 mg/dL [facility] Calcium [Mass/Vol] 8.7 mg/dL 8.5 - 10. 2 mg/dL [facility] Chloride [Moles/Vol] 105 mmol/L 97 - 10 5 mmol/L [facility] CO2 [Moles/Vol] 26 mmol/L 22 - 30 mmol/L [facility] Creatinine [Mass/Vol] 0.88 mg/dL 0.73 - 1.22 mg/dL [facility] Estimated Glomerular Filtration Rate 92 mL/min/1.73m >=60 mL/min/1.73m [facility] Glucose [Mass/Vol] 97 mg/dL 74 - 99 mg/dL [facility] Potassium [Moles/Vol] 3.9 mmol/L 3.7 - 5.1 mmol/L [facility] Protein [Mass/Vol] 6.8 g/dL 6.3 - 8.0 g/dL [facility] Sodium [Moles/Vol] 139 mmol/L 136 - 144 mmol/L [facility] Urea nitrogen [Mass/Vol] 12 mg/dL 9 - 24 mg/d L [facility] MAGNESIUM BLDon 07-07-2021 Magnesium [Mass/Vol] 2.1 mg/dL 1.7 - 2 .3 mg/dL [facility] CBC W Auto Differential pane l (Bld)on 06-30-2021 Abs Immature Gran 0.03 k/uL <0.10 k/uL [facility] Basophils (Bld) [#/Vol] 10*3/uL <0.11 k/uL [facility] Bas[facility]/100 WBC (Bld) 0.6 % [facility] Differential cell count method Nom (Bld) Auto [facility] Eosinophils (Bld) [#/Vol] 0.10 10*3/uL <0.46 k/uL [facility] Eosinophils/100 WBC (Bld) 3.1 % [facility] Erythrocyte distribution width (RBC) [Ratio] 13.9 % 11.5 - 15.0 % [facility] Hematocrit (Bld) [Volume fraction] 38.9 % Low 39.0 - 51.0 % [facility] Hemoglobin (Bld) [Mass/Vol] 12.9 g/dL Low 13.0 - 17.0 g/dL [facility] Immature Gran % 0.9 % [facility] Lymphocytes (Bld) [#/Vol] 0.52 10*3/uL Low 1.00 - 4.00 k/uL [facility] Lymphocytes/100 WBC (Bld) 16.0 % [facility] MCH (RBC) [Entitic mass] 31.9 pg 26. 0 - 34.0 pg [facility] MCHC (RBC) [Mass/Vol] 33.2 g/dL 30.5 - 36.0 g/dL [facility] MCV (RBC) [Entitic vol] 96.0 fL 80.0 - 100.0 fL [facility] Monocytes (Bld) [#/Vol] 0.68 10*3/uL <0.87 k/uL [facility] Monocytes/100 WBC (Bld) 20.9 % [facility] Neutrophils (Bld) [#/Vol] 1.91 10*3/uL 1.45 - 7.50 k/uL [facility] Neutrophils/100 WBC (Bld) 58.5 % [facility] Nucleated RBC (Bld) [#/Vol] 10*3/uL <0.01 k/uL [facility] Nucleated RBC/100 WBC (Bld) [Ratio] 0.0 /100 WBC [facility] Platelet mean volume (Bld) [Entitic vol] 9.2 fL 9.0 - 12.7 fL [facility] Platelets (Bld) [#/Vol] 107 10*3/uL Low 150 - 400 k/uL [facility] RBC (Bld) [#/Vol] 4.05 10*6/uL Low 4.20 - 6.0 0 m/uL [facility] WBC (Bld) [#/Vol] 3.26 10*3/uL Low 3.70 - 11. 00 k/uL [facility] Comprehensive metabolic 2000 panelon 06-30-2021 Albumin [Mass/Vol] 4.1 g/dL 3.9 - 4.9 g/dL [facility] ALP [Catalytic activity/Vol] 91 U/L 38 - 113 U/L [facility] ALT [Catalytic activity/Vol] 22 U/L 10 - 54 U/L [facility] Anion gap [Moles/Vol] 7 mmol/L Low 9 - 18 mmol/L [facility] AST [Catalytic activity/Vol] 28 U/L 14 - 40 U/L [facility] Bilirubin [Mass/Vol] 0.3 mg/dL 0.2 - 1 .3 mg/dL [facility] Calcium [Mass/Vol] 8.4 mg/dL Low 8.5 - 10. 2 mg/dL [facility] Chloride [Moles/Vol] 107 mmol/L High 97 - 10 5 mmol/L [facility] CO2 [Moles/Vol] 25 mmol/L 22 - 30 mmol/L [facility] Creatinine [Mass/Vol] 0.82 mg/dL 0.73 - 1.22 mg/dL [facility] Estimated Glomerular Filtration Rate 94 mL/min/1.73m >=60 mL/min/1.73m [facility] Glucose [Mass/Vol] 103 mg/dL High 74 - 99 mg/dL [facility] Potassium [Moles/Vol] 4.1 mmol/L 3.7 - 5.1 mmol/L [facility] Protein [Mass/Vol] 6.5 g/dL 6.3 - 8.0 g/dL [facility] Sodium [Moles/Vol] 139 mmol/L 136 - 144 mmol/L [facility] Urea nitrogen [Mass/Vol] 11 mg/dL 9 - 24 mg/d L [facility] MAGNESIUM BLDon 06-30-2021 Magnesium [Mass/Vol] 2.1 mg/dL 1.7 - 2 .3 mg/dL [facility] CBC W Auto Differential pane l (Bld)on 06-23-2021 Abs Immature Gran <0.03 <0.10 k/uL [facility] Basophils (Bld) [#/Vol] 10*3/uL <0.11 k/uL [facility] Basophils/100 WBC (Bld) 0.3 % [facility] Differential cell count method Nom (Bld) Auto [facility] Eosinophils (Bld) [#/Vol] 0.10 10*3/uL <0.46 k/uL [facility] Eosinophils/100 WBC (Bld) 2.7 % [facility] Erythrocyte distribution width (RBC) [Ratio] 13.2 % 11.5 - 15.0 % [facility] Hematocrit (Bld) [Volume fraction] 39.1 % 39.0 - 51.0 % [facility] Hemoglobin (Bld) [Mass/Vol] 13.0 g/dL 13.0 - 17.0 g/dL [facility] Immature Gran % 0.3 % [facility] Lymphocytes (Bld) [#/Vol] 0.90 10*3/uL Low 1.00 - 4.00 k/uL [facility] Lymphocytes/100 WBC (Bld) 24.7 % [facility] MCH (RBC) [Entitic mass] 31.9 pg 26. 0 - 34.0 pg [facility] MCHC (RBC) [Mass/Vol] 33.2 g/dL 30.5 - 36.0 g/dL [facility] MCV (RBC) [Entitic vol] 95.8 fL 80.0 - 100.0 fL [facility] Monocytes (Bld) [#/Vol] 0.67 10*3/uL <0.87 k/uL [facility] Monocytes/100 WBC (Bld) 18.4 % [facility] Neutrophils (Bld) [#/Vol] 1.96 10*3/uL 1.45 - 7.50 k/uL [facility] Neutrophils/100 WBC (Bld) 53.6 % [facility] Nucleated RBC (Bld) [#/Vol] 10*3/uL <0.01 k/uL [facility] Nucleated RBC/100 WBC (Bld) [Ratio] 0.0 /100 WBC [facility] Platelet mean volume (Bld) [Entitic vol] 9.7 fL 9.0 - 12.7 fL [facility] Platelets (Bld) [#/Vol] 169 10*3/uL 150 - 400 k/uL [facility] RBC (Bld) [#/Vol] 4.08 10*6/uL Low 4.20 - 6.0 0 m/uL [facility] WBC (Bld) [#/Vol] 3.65 10*3/uL Low 3.70 - 11. 00 k/uL [facility] Comprehensive metabolic 2000 panelon 06-23-2021 Albumin [Mass/Vol] 4.0 g/dL 3.9 - 4.9 g/dL [facility] ALP [Catalytic activity/Vol] 89 U/L 38 - 113 U/L [facility] ALT [Catalytic activity/Vol] 18 U/L 10 - 54 U/L [facility] Anion gap [Moles/Vol] 11 mmol/L 9 - 18 mmol/L [facility] AST [Catalytic activity/Vol] 25 U/L 14 - 40 U/L [facility] Bilirubin [Mass/Vol] 0.3 mg/dL 0.2 - 1 .3 mg/dL [facility] Calcium [Mass/Vol] 8.6 mg/dL 8.5 - 10. 2 mg/dL [facility] Chloride [Moles/Vol] 105 mmol/L 97 - 10 5 mmol/L [facility] CO2 [Moles/Vol] 25 mmol/L 22 - 30 mmol/L [facility] Creatinine [Mass/Vol] 0.81 mg/dL 0.73 - 1.22 mg/dL [facility] Estimated Glomerular Filtration Rate 94 mL/min/1.73m >=60 mL/min/1.73m [facility] Glucose [Mass/Vol] 83 mg/dL 74 - 99 mg/dL [facility] Potassium [Moles/Vol] 3.8 mmol/L 3.7 - 5.1 mmol/L [facility] Protein [Mass/Vol] 6.5 g/dL 6.3 - 8.0 g/dL [facility] Sodium [Moles/Vol] 141 mmol/L 136 - 144 mmol/L [facility] Urea nitrogen [Mass/Vol] 13 mg/dL 9 - 24 mg/d L [facility] MAGNESIUM BLDon 06-23-2021 Magnesium [Mass/Vol] 2.1 mg/dL 1.7 - 2 .3 mg/dL [facility] CBC W Auto Differential pane l (Bld)on 06-16-2021 Abs Immature Gran 0.03 k/uL <0.10 k/uL [facility] Basophils (Bld) [#/Vol] 0.03 10*3/uL <0.11 k/uL [facility] Basophils/100 WBC (Bld) 0.6 % [facility] Differential cell count method Nom (Bld) Auto [facility] Eosinophils (Bld) [#/Vol] 0.15 10*3/uL <0.46 k/uL [facility] Eosinophils/100 WBC (Bld) 3.2 % [facility] Erythrocyte distribution width (RBC) [Ratio] 12.9 % 11.5 - 15.0 % [facility] Hematocrit (Bld) [Volume fraction] 38.4 % Low 39.0 - 51.0 % [facility] Hemoglobin (Bld) [Mass/Vol] 12.9 g/dL Low 13.0 - 17.0 g/dL [facility] Immature Gran % 0.6 % [facility] Lymphocytes (Bld) [#/Vol] 1.11 10*3/uL 1.00 - 4.00 k/uL [facility] Lymphocytes/100 WBC (Bld) 23.8 % [facility] MCH (RBC) [Entitic mass] 31.6 pg 26. 0 - 34.0 pg [facility] MCHC (RBC) [Mass/Vol] 33.6 g/dL 30.5 - 36.0 g/dL [facility] MCV (RBC) [Entitic vol] 94.1 fL 80.0 - 100.0 fL [facility] Monocytes (Bld) [#/Vol] 0.38 10*3/uL <0.87 k/uL [facility] Monocytes/100 WBC (Bld) 8.1 % [facility] Neutrophils (Bld) [#/Vol] 2.97 10*3/uL 1.45 - 7.50 k/uL [facility] Neutrophils/100 WBC (Bld) 63.7 % [facility] Nucleated RBC (Bld) [#/Vol] 10*3/uL <0.01 k/uL [facility] Nucleated RBC/100 WBC (Bld) [Ratio] 0.0 /100 WBC [facility] Platelet mean volume (Bld) [Entitic vol] 9.9 fL 9.0 - 12.7 fL [facility] Platelets (Bld) [#/Vol] 184 10*3/uL 150 - 400 k/uL [facility] RBC (Bld) [#/Vol] 4.08 10*6/uL Low 4.20 - 6.0 0 m/uL [facility] WBC (Bld) [#/Vol] 4.67 10*3/uL 3.70 - 11. 00 k/uL [facility] Comprehensive metabolic 2000 panelon 06-16-2021 Albumin [Mass/Vol] 3.9 g/dL 3.9 - 4.9 g/dL [facility] ALP [Catalytic activity/Vol] 95 U/L 38 - 113 U/L [facility] ALT [Catalytic activity/Vol] 12 U/L 10 - 54 U/L [facility] Anion gap [Moles/Vol] 7 mmol/L Low 9 - 18 mmol/L [facility] AST [Catalytic activity/Vol] 19 U/L 14 - 40 U/L [facility] Bilirubin [Mass/Vol] 0.6 mg/dL 0.2 - 1 .3 mg/dL [facility] Calcium [Mass/Vol] 8.4 mg/dL Low 8.5 - 10. 2 mg/dL [facility] Chloride [Moles/Vol] 105 mmol/L 97 - 10 5 mmol/L [facility] CO2 [Moles/Vol] 25 mmol/L 22 - 30 mmol/L [facility] Creatinine [Mass/Vol] 0.74 mg/dL 0.73 - 1.22 mg/dL [facility] Estimated Glomerular Filtration Rate 97 mL/min/1.73m >=60 mL/min/1.73m [facility] Glucose [Mass/Vol] 97 mg/dL 74 - 99 mg/dL [facility] Potassium [Moles/Vol] 3.8 mmol/L 3.7 - 5.1 mmol/L [facility] Protein [Mass/Vol] 6.4 g/dL 6.3 - 8.0 g/dL [facility] Sodium [Moles/Vol] 137 mmol/L 136 - 144 mmol/L [facility] Urea nitrogen [Mass/Vol] 13 mg/dL 9 - 24 mg/d L [facility] MAGNESIUM BLDon 06-16-2021 Magnesium [Mass/Vol] 2.1 mg/dL 1.7 - 2 .3 mg/dL [facility] Established Visit (Otolaryng ology)on 02-10-2021 Established Visit [...] MG Oral TabletTAKE 1 TABLET TWICE DAILY. Manley-3 350 MG Oral Capsule Delayed Release Probiotic CAPS Tamsulosin HCl - 0.4 MG Oral CapsuleTAKE 1 CAPSULE Bedtime Triamcinolone Acetonide 0.1 % External Cream Physical Exam On physical exam, the patient is a well-nourished, well-developed patient, in no acute distress, and able to communicate without assistance in [place] language. Head and face is atraumatic and [...] 10.1 x (more content not included)... Normal [facility] MRI IAC w/wo Contraston 01-29 MRI IAC w/wo Contrast Normal [facility] Work Phone: NR MRI IAC WO/Won 02-10-2021 NR MRI IAC WO/W Patient Name: JAI LUNA STUDY: MRI IAC WO/W; 02/10/2021 1:53 pm INDICATION: Acoustic neuroma; Health Maintenance. COMPARISON: None. ACCESSION NUMBER(S): [id number] ORDERING CLINICIAN: GISELA HARRELL TECHNIQUE: T2, FLAIR, [...] age. Electronically signed by: DO Sly MAE [facility] Office Visit (Audiology)on 04-13-2020 Follow-up visit Diagnoses/Problems [...] aural fullness. Patient utilizes a CROS aid. [id number] Patient's preferred language: Australian Preferred language of the parent, legal guardian or surrogate decision-maker of this minor or incapacitated patient: Not Applicable No overt signs of domestic violence/neglect/abus e. No referral made to Electronic Equipment Repairer. Pain not interfering with optimal level of [...] system. Signatures Electronically signed by : Aylin Fernnado; Feb 10 2021 4:22PM EST (Author) Reviewed by : Gisela Can MD; Feb 10 2021 6:38PM EST Normal [employer] Tobacco Screening.on 021 Fall risk assessment a) No falls within the last year [facility] 4100 Work Phone: Tobacco use status [facility] b) No M -[facility] 4100 Work Phone: Initial Visit (Otolaryngolog y)on 08-12-2020 Initial Visit (Otolaryngology) Diagnoses/Problems Encounter for preventive health examination (V70.0) (Z00.00) Acoustic neuroma (225.1) (D33.3) Sensorineural hearing loss (SNHL) of both ears (389.18) (H90.3) Orders Basic Metabolic Panel; Status:Active - Retrospective Authorization; Requested for:[id number]; MRI IAC w/wo Contrast; Status:Active; Requested for:[id number]; Radiologist to Determine Optimal Study : Y Does the patient have a Cochlear Implant, Pacemaker, Defibrilator, Pacing Wire, Brain Aneurysm Clip, Implanted Nerve or Bone Graft Simulator, Implanted Breast Tissue Cafeteria Food Server, Glucose Monitor, or Neulasta Device? : No What are the patient's signs and symptoms? : Acoustic neuroma; Health Maintenance Audiology Referral Evaluation and Treatment Evaluate AND Treat Cross hearing aide Status: Hold For - Scheduling,Retrospect marquita By Protocol Authorization Requested for: [id number] Provider Impressions In summary, Mr. Luna is [...] MG Oral TabletTAKE 1 TABLET TWICE DAILY. Manley-3 350 MG Oral Capsule Delayed Release Probiotic Oral Capsule Tamsulosin HCl - 0.4 MG Oral CapsuleTAKE 1 CAPSULE Bedtime Triamcinolone Acetonide 0.1 % External Cream Vitals Vital Signs Recorded: 12Aug2020 11:33AM Height5 ft 5 in [id number] lb 0.9 oz BMI Bvvkrwmpxj18.79 kg/m2 BSA Calculated1.97 Physical Exam On physical exam, the patient is a well-nourished, well-developed patient, in no acute distress, and able to communicate without assistance in [place] language. Head and face is atraumatic and [...] shows moderat (more content not included)... Normal [facility] COVID-19 virus antigen assay SARS-CoV-2 (COVID-19) Ag IA.rapid Ql (Resp) [facility] Work Phone: Influenza virus A and B and SARS-CoV-2 (COVID-19) Ag panel - Upper respiratory specim SARS-CoV-2 (COVID-19) RNA RODGER+probe Ql (Resp) [facility] Work Phone: Laboratory - Microbiology an d Antimicrobial susceptibility Bacteria identified Cx Nom (Bld) No growth in 5 days. [facility] Work Phone: Vital Signs Date Time Vital Sign Value Performing Clinician Facility 11-29-2024 07:49-0400 Body height 167.[address] Katy Faust MD Work Phone: [facility] 11-29-2024 07:49-0400 Body mass index (BMI) [Ratio] 30.8 kg/m2 Dr. Katy Faust MD Work Phone: 8(154)721-622288 [place] [address] 11-29-2024 07:49-0400 Body weight 86.[address] Katy Faust MD Work Phone: 7(284)133-379288 [place] [address] 11-29-2024 07:49-0400 Diastolic blood pressure 77 mm[Hg] Dr. Katy Faust MD Work Phone: 9(654)971-566288 [place] [address] 11-29-2024 07:49-0400 Heart rate 76 /min Dr. Katy Faust MD Work Phone: 8(755)751-076188 [place] [address] 11-29-2024 07:49-0400 Respiratory rate 18 /min Dr. Katy Faust MD Work Phone: 9(325)453-583288 [place] [address] 11-29-2024 07:49-0400 SaO2% (BldA) [Mass fraction] 95 % Dr. Katy Faust MD Work Phone: 9(957)989-361488 [place] [address] 11-29-2024 07:49-0400 Systolic blood pressure 139 mm[Hg] Dr. Katy Faust MD Work Phone: 5(908)880-791788 [place] [address] 10-13-2024 08:58-0400 Body height 167.[address] Katy Faust MD Work Phone: 1(225)379-348388 [place] [address] 10-13-2024 08:58-0400 Body mass index (BMI) [Ratio] 31.3 kg/m2 Dr. Katy Faust MD Work Phone: 6(456)064-170388 [place] [address] 10-13-2024 08:58-0400 Body weight 87.[address] Katy Faust MD Work Phone: 7(517)620-241888 [place] [address] 08-23-2024 10:08-0400 Body temperature 97.3 [degF] Dr. Katy Faust MD Work Phone: 3(343)679-760188 [place] [address] 08-23-2024 10:08-0400 Body weight 87.[address] Katy Faust MD Work Phone: 0(329)180-878088 [place] [address] 08-23-2024 10:08-0400 Diastolic blood pressure 80 mm[Hg] Dr. Katy Faust MD Work Phone: [facility] 08-23-2024 10:08-0400 Heart rate 62 /min Dr. Katy Faust MD Work Phone: [facility] 08-23-2024 10:08-0400 Respiratory rate 16 /min Dr. Katy Faust MD Work Phone: [facility] 08-23-2024 10:08-0400 SaO2% (BldA) [Mass fraction] 98 % Dr. Katy Faust MD Work Phone: [facility] 08-23-2024 10:08-0400 Systolic blood pressure 120 mm[Hg] Dr. Katy Faust MD Work Phone: [facility] 08-15-2024 15:17-0400 Body mass index (BMI) [Ratio] 32.28 kg/m2 Norm Elena ACADEMIC AFFAIRS MANAGER.FURNITURE INSPECTOR Work Phone: [facility] 08-15-2024 15:17-0400 Body weight 87.3 kg Norm Elena ACADEMIC AFFAIRS MANAGER.FURNITURE INSPECTOR Work Phone: [facility] 08-15-2024 15:17-0400 Diastolic blood pressure 70 mm[Hg] Norm Elena ACADEMIC AFFAIRS MANAGER.FURNITURE INSPECTOR Work Phone: [facility] 08-15-2024 15:17-0400 Heart rate 62 /min Norm Elena ACADEMIC AFFAIRS MANAGER.FURNITURE INSPECTOR Work Phone: [facility] 08-15-2024 15:17-0400 SaO2% (BldA) [Mass fraction] 98 % Norm Elena ACADEMIC AFFAIRS MANAGER.FURNITURE INSPECTOR Work Phone: [facility] 08-15-2024 15:17-0400 Systolic blood pressure 132 mm[Hg] Norm Elena ACADEMIC AFFAIRS MANAGER.FURNITURE INSPECTOR Work Phone: [facility] 07-05-2024 07:57-0400 Body mass index (BMI) [Ratio] 31.91 kg/m2 Norm Elena ACADEMIC AFFAIRS MANAGER.FURNITURE INSPECTOR Work Phone: [facility] 07-05-2024 07:57-0400 Body weight 86.3 kg Onrm Elena ACADEMIC AFFAIRS MANAGER.FURNITURE INSPECTOR Work Phone: [facility] 07-05-2024 07:57-0400 Diastolic blood pressure 80 mm[Hg] Norm Elena ACADEMIC AFFAIRS MANAGER.FURNITURE INSPECTOR Work Phone: [facility] 07-05-2024 07:57-0400 Heart rate 75 /min Norm Elena ACADEMIC AFFAIRS MANAGER.FURNITURE INSPECTOR Work Phone: [facility] 07-05-2024 07:57-0400 SaO2% (BldA) [Mass fraction] 97 % Norm Elena ACADEMIC AFFAIRS MANAGER.FURNITURE INSPECTOR Work Phone: [facility] 07-05-2024 07:57-0400 Systolic blood pressure 138 mm[Hg] Norm Elena ACADEMIC AFFAIRS MANAGER.FURNITURE INSPECTOR Work Phone: [facility] 05-31-2024 15:53-0400 Body mass index (BMI) [Ratio] 32.61 kg/m2 Katy Faust MD Work Phone: [facility] 05-31-2024 15:53-0400 Body temperature 97 [degF] Katy Faust MD Work Phone: [facility] 05-31-2024 15:53-0400 Body weight 88.2 kg Katy Faust MD Work Phone: [facility] 05-31-2024 15:53-0400 Diastolic blood pressure 68 mm[Hg] Katy Faust MD Work Phone: [facility] 05-31-2024 15:53-0400 Heart rate 64 /min Katy Faust MD Work Phone: [facility] 05-31-2024 15:53-0400 Respiratory rate 16 /min Katy Faust MD Work Phone: [facility] 05-31-2024 15:53-0400 Systolic blood pressure 138 mm[Hg] Katy Faust MD Work Phone: [facility] 04-25-2024 15:29-0500 Body temperature 98.5 [degF] Dr. Katy Faust MD Work Phone: 3(050)102-116107 [place] [address] 04-25-2024 15:29-0500 Diastolic blood pressure 75 mm[Hg] Dr. Katy Faust MD Work Phone: 3(978)846-959688 [place] [address] 04-25-2024 15:29-0500 Heart rate 65 /min Dr. Katy Faust MD Work Phone: 0(291)778-787688 [place] [address] 04-25-2024 15:29-0500 Respiratory rate 16 /min Dr. Katy Faust MD Work Phone: 3(144)980-560788 [place] [address] 04-25-2024 15:29-0500 SaO2% (BldA) [Mass fraction] 98 % Dr. Katy Faust MD Work Phone: 3(573)668-702288 [place] [address] 04-25-2024 15:29-0500 Systolic blood pressure 140 mm[Hg] Dr. Katy Faust MD Work Phone: 4(439)804-907707 [place] [address] 04-25-2024 10:35-0500 Body height 167.[address] Katy Faust MD Work Phone: 7(744)192-054888 [place] [address] 04-25-2024 10:35-0500 Body mass index (BMI) [Ratio] 30.4 kg/m2 Dr. Katy Faust MD Work Phone: 5(338)385-000788 [place] [address] 04-25-2024 10:35-0500 Body weight 85.[address] Katy Faust MD Work Phone: 8(764)155-453207 [place] [address] 01-04-2024 14:40-0500 Body height 164.5 cm Norm Elena ACADEMIC AFFAIRS MANAGER.FURNITURE INSPECTOR Work Phone: 8(797)399-275905 [place] [address] 01-04-2024 14:40-0500 Body mass index (BMI) [Ratio] 31.76 kg/m2 Norm Elena ACADEMIC AFFAIRS MANAGER.FURNITURE INSPECTOR Work Phone: 6(502)083-021605 [place] [address] 01-04-2024 14:40-0500 Body weight 85.9 kg Norm Elena ACADEMIC AFFAIRS MANAGER.FURNITURE INSPECTOR Work Phone: 6(346)167-643805 [place] [address] 01-04-2024 14:40-0500 Diastolic blood pressure 74 mm[Hg] Norm Elena ACADEMIC AFFAIRS MANAGER.FURNITURE INSPECTOR Work Phone: [facility] 01-04-2024 14:40-0500 Heart rate 64 /min Norm Elena ACADEMIC AFFAIRS MANAGER.FURNITURE INSPECTOR Work Phone: [facility] 01-04-2024 14:40-0500 SaO2% (BldA) [Mass fraction] 98 % Norm Elena ACADEMIC AFFAIRS MANAGER.FURNITURE INSPECTOR Work Phone: [facility] 01-04-2024 14:40-0500 Systolic blood pressure 136 mm[Hg] Norm Elena ACADEMIC AFFAIRS MANAGER.FURNITURE INSPECTOR Work Phone: [facility] 11-30-2023 09:58-0400 Diastolic blood pressure 72 mm[Hg] Norm Elena ACADEMIC AFFAIRS MANAGER.FURNITURE INSPECTOR Work Phone: [facility] 11-30-2023 09:58-0400 Systolic blood pressure 150 mm[Hg] Norm Elena ACADEMIC AFFAIRS MANAGER.FURNITURE INSPECTOR Work Phone: [facility] 11-30-2023 09:57-0400 Body mass index (BMI) [Ratio] 30.17 kg/m2 Norm Elena ACADEMIC AFFAIRS MANAGER.FURNITURE INSPECTOR Work Phone: [facility] 11-30-2023 09:57-0400 Body weight 84.8 kg Norm Elena ACADEMIC AFFAIRS MANAGER.FURNITURE INSPECTOR Work Phone: [facility] 11-30-2023 09:57-0400 Heart rate 54 /min Norm Elena ACADEMIC AFFAIRS MANAGER.FURNITURE INSPECTOR Work Phone: [facility] 11-30-2023 09:57-0400 SaO2% (BldA) [Mass fraction] 99 % Norm Elena ACADEMIC AFFAIRS MANAGER.FURNITURE INSPECTOR Work Phone: [facility] 09-22-2023 13:28-0400 Diastolic blood pressure 76 mm[Hg] Pacc 1 Work Phone: [facility] 09-22-2023 13:28-0400 Heart rate 66 /min Pacc 1 Work Phone: [facility] 09-22-2023 13:28-0400 Systolic blood pressure 145 mm[Hg] Pacc 1 Work Phone: [facility] 09-22-2023 13:190400 Body height 167.6 cm Pacc 1 Work Phone: [facility] 09-22-2023 13:19-0400 Body mass index (BMI) [Ratio] 30.89 kg/m2 Pacc 1 Work Phone: [facility] 09-22-2023 13:190400 Body temperature 97.81 [degF] Pacc 1 Work Phone: [facility] 09-22-2023 13:19040 Body weight 86.8 kg Pacc 1 Work Phone: [facility] 09-22-2023 13:19-0400 Respiratory rate 18 /min Pacc 1 Work Phone: [facility] 09-22-2023 13:190400 SaO2% (BldA) [Mass fraction] 97 % Pacc 1 Work Phone: [facility] 07-14-2023 13:160400 Body height 167.6 cm Sabrina Muñiz MD Work Phone: [facility] 07-14-2023 13:16-0400 Body mass index (BMI) [Ratio] 30.76 kg/m2 Sabrina Muñiz MD Work Phone: [facility] 07-14-2023 13:16-0400 Body temperature 98.71 [degF] Sabrina Muñiz MD Work Phone: [facility] 07-14-2023 13:16-0400 Body weight 86.46 kg Sabrina Muñiz MD Work Phone: [facility] 07-14-2023 13:16-0400 Diastolic blood pressure 68 mm[Hg] Sabrina Muñiz MD Work Phone: [facility] 07-14-2023 13:16-0400 Systolic blood pressure 116 mm[Hg] Sabrina Muñiz MD Work Phone: [facility] 07-08-2023 08:08-0400 Body height 167.[address] Katy Faust Work Phone: 6(625)[phone] [place] [address] 07-08-2023 08:08-0400 Body weight 85.[address] Katy Faust Work Phone: [phone])760-587588 [place] [address] 07-07-2023 13:51-0400 Body mass index (BMI) [Ratio] 30.3 kg/m2 Dr. Katy Faust Work Phone: 2(732)064-273288 [place] [address] 06-11-2023 19:12-0400 Diastolic blood pressure 94 mm[Hg] Dr. Katy Faust Work Phone: 7(646)021-489688 [place] [address] 06-11-2023 19:12-0400 Heart rate 92 /min Dr. Katy Faust Work Phone: 9(774)853-328488 [place] [address] 06-11-2023 19:12-0400 Respiratory rate 20 /min Dr. Katy Faust Work Phone: 9(839)096-886988 [place] [address] 06-11-2023 19:12-0400 SaO2% (BldA) [Mass fraction] 96 % Dr. Katy Faust Work Phone: 7(762)057-361188 [place] [address] 06-11-2023 19:12-0400 Systolic blood pressure 156 mm[Hg] Dr. Katy Faust Work Phone: 2(083)407-105688 [place] [address] 06-11-2023 18:34-0400 Body height 167.[address] Katy Faust Work Phone: 6(445)225-801688 [place] [address] 06-11-2023 18:34-0400 Body mass index (BMI) [Ratio] 32.3 kg/m2 Dr. Katy Faust Work Phone: 6(737)638-245988 [place] [address] 06-11-2023 18:34-0400 Body temperature 95.8 [degF] Dr. Katy Faust Work Phone: 5(087)981-247288 [place] [address] 06-11-2023 18:34-0400 Body weight 90.[address] Katy Faust Work Phone: [facility] 05-31-2023 09:51-0400 Body temperature 97 [degF] Mary Anne Alejandro ACADEMIC AFFAIRS MANAGER.FURNITURE INSPECTOR Work Phone: [facility] 05-31-2023 09:51-0400 Body weight 85.1 kg Mary Anne Alejandro ACADEMIC AFFAIRS MANAGER.FURNITURE INSPECTOR Work Phone: [facility] 05-31-2023 09:51-0400 Diastolic blood pressure 62 mm[Hg] Mary Anne Alejandro ACADEMIC AFFAIRS MANAGER.FURNITURE INSPECTOR Work Phone: [facility] 05-31-2023 09:51-0400 Heart rate 60 /min Mary Anne Alejandro ACADEMIC AFFAIRS MANAGER.FURNITURE INSPECTOR Work Phone: [facility] 05-31-2023 09:51-0400 Respiratory rate 16 /min Mary Anne Alejandro ACADEMIC AFFAIRS MANAGER.FURNITURE INSPECTOR Work Phone: [facility] 05-31-2023 09:51-0400 SaO2% (BldA) [Mass fraction] 97 % Mary Anne Alejandro ACADEMIC AFFAIRS MANAGER.FURNITURE INSPECTOR Work Phone: [facility] 05-31-2023 09:51-0400 Systolic blood pressure 106 mm[Hg] Mary Anne Alejandro ACADEMIC AFFAIRS MANAGER.FURNITURE INSPECTOR Work Phone: [facility] 05-20-2023 15:36-0400 Body temperature 98.2 [degF] Dr. Katy Faust Work Phone: [facility] 05-20-2023 15:36-0400 Body weight 85.[address] Katy Faust Work Phone: [facility] 05-20-2023 15:36-0400 Diastolic blood pressure 69 mm[Hg] Dr. Katy Faust Work Phone: [facility] 05-20-2023 15:36-0400 Heart rate 62 /min Dr. Katy Faust Work Phone: [facility] 05-20-2023 15:36-0400 Respiratory rate 16 /min Dr. Katy Faust Work Phone: [facility] 05-20-2023 15:36-0400 SaO2% (BldA) [Mass fraction] 97 % Dr. Katy Faust Work Phone: [facility] 05-20-2023 15:36-0400 Systolic blood pressure 121 mm[Hg] Dr. Katy Faust Work Phone: 8(823)731-657207 [place] [address] 05-05-2023 15:07-0500 Diastolic blood pressure 66 mm[Hg] Dr. Katy Faust Work Phone: 2(255)912-831807 [place] [address] 05-05-2023 15:07-0500 Heart rate 60 /min Dr. Katy Faust Work Phone: 8(816)494-721307 [place] [address] 05-05-2023 15:07-0500 Systolic blood pressure 144 mm[Hg] Dr. Katy Faust Work Phone: 7(058)291-143607 [place] [address] 05-05-2023 14:48-0500 Body height 167.[address] Katy Faust Work Phone: 9(056)474-443607 [place] [address] 05-05-2023 14:48-0500 Body mass index (BMI) [Ratio] 30.3 kg/m2 Dr. Katy Faust Work Phone: 9(515)971-232807 [place] [address] 05-05-2023 14:48-0500 Body weight 85.[address] Katy Faust Work Phone: 3(355)120-493307 [place] [address] 05-05-2023 14:48-0500 Respiratory rate 18 /min Dr. Katy Faust Work Phone: [facility] 12-03-2022 12:30-0400 Diastolic blood pressure 64 mm[Hg] Justin William MD Work Phone: [facility] 12-03-2022 12:30-0400 Heart rate 60 /min Justin William MD Work Phone: [facility] 12-03-2022 12:30-0400 Respiratory rate 17 /min Justin William MD Work Phone: [facility] 12-03-2022 12:30-0400 SaO2% (BldA) [Mass fraction] 99 % Justin William MD Work Phone: [facility] 12-03-2022 12:30-0400 Systolic blood pressure 109 mm[Hg] Justin William MD Work Phone: [facility] 12-03-2022 09:16-0400 Body temperature 97.5 [degF] Justin William MD Work Phone: [facility] 11-03-2022 10:24-0400 Body weight 77.07 kg Terry Balderrama MD Work Phone: [facility] 11-03-2022 10:24-0400 Diastolic blood pressure 76 mm[Hg] Terry Balderrama MD Work Phone: [facility] 11-03-2022 10:24-0400 Heart rate 56 /min Terry Balderrama MD Work Phone: [facility] 11-03-2022 10:24-0400 Systolic blood pressure 120 mm[Hg] Terry Balderrama MD Work Phone: [facility] 05-20-2022 13:44-0400 Body height 167.6 cm ANTONI Cheung MD Work Phone: [facility] 05-20-2022 13:44-0400 Body weight 68.95 kg ANTONI Cheung MD Work Phone: [facility] 05-20-2022 11:24-0400 Body height 167.6 cm Terry Balderrama MD Work Phone: [facility] 05-20-2022 11:24-0400 Body weight 68.95 kg Terry Balderrama MD Work Phone: [facility] 05-20-2022 11:24-0400 Diastolic blood pressure 74 mm[Hg] Terry Balderrama MD Work Phone: [facility] 05-20-2022 11:24-0400 Heart rate 87 /min Terry Balderrama MD Work Phone: [facility] 05-20-2022 11:24-0400 SaO2% (BldA) [Mass fraction] 98 % Terry Balderrama MD Work Phone: [facility] 05-20-2022 11:24-0400 Systolic blood pressure 111 mm[Hg] Terry Balderrama MD Work Phone: [facility] 05-20-2022 09:33-0400 Body height 167.6 cm Pacc 5 Work Phone: [facility] 05-20-2022 09:33-0400 Body temperature 97 [degF] Pacc 5 Work Phone: [facility] 05-20-2022 09:33-0400 Body weight 68.95 kg Pacc 5 Work Phone: [facility] 05-20-2022 09:33-0400 Diastolic blood pressure 74 mm[Hg] Pacc 5 Work Phone: [facility] 05-20-2022 09:33-0400 Heart rate 87 /min Pacc 5 Work Phone: [facility] 05-20-2022 09:33-0400 SaO2% (BldA) [Mass fraction] 98 % Pacc 5 Work Phone: [facility] 05-20-2022 09:33-0400 Systolic blood pressure 111 mm[Hg] Pacc 5 Work Phone: [facility] 04-23-2022 11:38-0500 Body temperature 98.1 [degF] Doris Rivera RN Work Phone: [facility] 04-23-2022 11:38-0500 Body weight 67.13 kg Doris Rivera RN Work Phone: [facility] 04-23-2022 11:38-0500 Diastolic blood pressure 64 mm[Hg] Doris Rivera RN Work Phone: [facility] 04-23-2022 11:38-0500 Heart rate 93 /min Doris Rivera RN Work Phone: [facility] 04-23-2022 11:38-0500 Respiratory rate 18 /min Doris Rivera RN Work Phone: [facility] 04-23-2022 11:38-0500 SaO2% (BldA) [Mass fraction] 97 % Doris Rivera RN Work Phone: [facility] 04-23-2022 11:38-0500 Systolic blood pressure 90 mm[Hg] Doris Rivera RN Work Phone: [facility] 04-22-2022 16:12-0500 Body weight 67.59 kg Katy Faust MD Work Phone: [facility] 04-22-2022 16:12-0500 Diastolic blood pressure 76 mm[Hg] Katy Faust MD Work Phone: [facility] 04-22-2022 16:12-0500 Heart rate 103 /min Katy Faust MD Work Phone: [facility] 04-22-2022 16:12-0500 Respiratory rate 18 /min Katy Faust MD Work Phone: [facility] 04-22-2022 16:12-0500 Systolic blood pressure 109 mm[Hg] Katy Faust MD Work Phone: [facility] 04-22-2022 13:50-0500 Body temperature 97.9 [degF] Estefany Stern PT Work Phone: [facility] 04-22-2022 13:50-0500 Body weight 67.41 kg Estefany Stern PT Work Phone: [facility] 04-22-2022 13:50-0500 Diastolic blood pressure 76 mm[Hg] Estefany Stern PT Work Phone: [facility] 04-22-2022 13:50-0500 Heart rate 114 /min Estefany Stern PT Work Phone: [facility] 04-22-2022 13:50-0500 Respiratory rate 18 /min Estefany Stern PT Work Phone: [facility] 04-22-2022 13:50-0500 SaO2% (BldA) [Mass fraction] 99 % Estefany Stern PT Work Phone: [facility] 04-22-2022 13:50-0500 Systolic blood pressure 108 mm[Hg] Estefany Stern PT Work Phone: [facility] 04-21-2022 11:48-0500 Heart rate 109 /min Isela Patrizia TRUCK RENTAL CLERK Work Phone: [facility] 04-21-2022 11:48-0500 SaO2% (BldA) [Mass fraction] 97 % Isela Patrizia TRUCK RENTAL CLERK Work Phone: [facility] 04-21-2022 11:13-0500 Body temperature 97.5 [degF] Isela Patrizia TRUCK RENTAL CLERK Work Phone: [facility] 04-21-2022 11:13-0500 Diastolic blood pressure 66 mm[Hg] Isela Patrizia TRUCK RENTAL CLERK Work Phone: [facility] 04-21-2022 11:13-0500 Respiratory rate 18 /min Isela Patrizia TRUCK RENTAL CLERK Work Phone: [facility] 04-21-2022 11:13-0500 Systolic blood pressure 110 mm[Hg] Isela Patrizia TRUCK RENTAL CLERK Work Phone: [facility] 04-17-2022 11:42-0500 Diastolic blood pressure 72 mm[Hg] Isela Patrizia TRUCK RENTAL CLERK Work Phone: [facility] 04-17-2022 11:42-0500 Heart rate 94 /min Isela Patrizia TRUCK RENTAL CLERK Work Phone: [facility] 04-17-2022 11:42-0500 SaO2% (BldA) [Mass fraction] 99 % Isela Patrizia TRUCK RENTAL CLERK Work Phone: [facility] 04-17-2022 11:42-0500 Systolic blood pressure 102 mm[Hg] Isela Patrizia TRUCK RENTAL CLERK Work Phone: [facility] 04-17-2022 11:16-0500 Respiratory rate 18 /min Isela Patrizia TRUCK RENTAL CLERK Work Phone: [facility] 04-15-2022 11:15-0500 Body temperature 97.39 [degF] Isela Patrizia TRUCK RENTAL CLERK Work Phone: [facility] 04-15-2022 11:15-0500 Diastolic blood pressure 68 mm[Hg] Isela Patrizia TRUCK RENTAL CLERK Work Phone: [facility] 04-15-2022 11:15-0500 Heart rate 86 /min Isela Patrizia TRUCK RENTAL CLERK Work Phone: [facility] 04-15-2022 11:15-0500 Respiratory rate 18 /min Isela Patrizia TRUCK RENTAL CLERK Work Phone: [facility] 04-15-2022 11:15-0500 SaO2% (BldA) [Mass fraction] 99 % Isela Patrizia TRUCK RENTAL CLERK Work Phone: [facility] 04-15-2022 11:15-0500 Systolic blood pressure 116 mm[Hg] Isela Patrizia TRUCK RENTAL CLERK Work Phone: [facility] 04-13-2022 11:50-0500 Body temperature 97.9 [degF] Britta Mantilla RN Work Phone: [facility] 04-13-2022 11:50-0500 Diastolic blood pressure 78 mm[Hg] Britta Mantilla RN Work Phone: [facility] 04-13-2022 11:50-0500 Heart rate 84 /min Britta Mantilla RN Work Phone: [facility] 04-13-2022 11:50-0500 Respiratory rate 16 /min Britta Mantilla RN Work Phone: [facility] 04-13-2022 11:50-0500 SaO2% (BldA) [Mass fraction] 99 % Britta Most RN Work Phone: [facility] 04-13-2022 11:50-0500 Systolic blood pressure 118 mm[Hg] Britta Most RN Work Phone: [facility] 04-09-2022 11:11-0500 Body temperature 97.9 [degF] Britta Most RN Work Phone: [facility] 04-09-2022 11:11-0500 Body weight 63.96 kg Britta Most RN Work Phone: [facility] 04-09-2022 11:11-0500 Diastolic blood pressure 70 mm[Hg] Britta Most RN Work Phone: [facility] 04-09-2022 11:11-0500 Heart rate 92 /min Britta Most RN Work Phone: [facility] 04-09-2022 11:11-0500 Respiratory rate 16 /min Britta Most RN Work Phone: [facility] 04-09-2022 11:11-0500 SaO2% (BldA) [Mass fraction] 97 % Britta Most RN Work Phone: [facility] 04-09-2022 11:11-0500 Systolic blood pressure 116 mm[Hg] Britta Most RN Work Phone: [facility] 04-07-2022 11:50-0500 Heart rate 91 /min Isela Patrizia TRUCK RENTAL CLERK Work Phone: [facility] 04-07-2022 11:50-0500 SaO2% (BldA) [Mass fraction] 99 % Isela Patrizia TRUCK RENTAL CLERK Work Phone: [facility] 04-07-2022 11:19-0500 Diastolic blood pressure 70 mm[Hg] Isela Patrizia TRUCK RENTAL CLERK Work Phone: [facility] 04-07-2022 11:19-0500 Systolic blood pressure 110 mm[Hg] Isela Patrizia TRUCK RENTAL CLERK Work Phone: [facility] 04-07-2022 11:13-0500 Body temperature 97.59 [degF] Isela Acharya TRUCK RENTAL CLERK Work Phone: [facility] 04-07-2022 11:13-0500 Respiratory rate 18 /min Isela Patrizia TRUCK RENTAL CLERK Work Phone: [facility] 04-06-2022 14:47-0500 Body height 165.1 cm Norm Elena ACADEMIC AFFAIRS MANAGER.FURNITURE INSPECTOR Work Phone: [facility] 04-06-2022 14:47-0500 Body weight 64.86 kg Norm Elena ACADEMIC AFFAIRS MANAGER.FURNITURE INSPECTOR Work Phone: [facility] 04-06-2022 14:47-0500 Diastolic blood pressure 80 mm[Hg] Norm Elena ACADEMIC AFFAIRS MANAGER.FURNITURE INSPECTOR Work Phone: [facility] 04-06-2022 14:47-0500 Heart rate 115 /min Norm Elena ACADEMIC AFFAIRS MANAGER.FURNITURE INSPECTOR Work Phone: [facility] 04-06-2022 14:47-0500 SaO2% (BldA) [Mass fraction] 93 % Norm Elena ACADEMIC AFFAIRS MANAGER.FURNITURE INSPECTOR Work Phone: [facility] 04-06-2022 14:47-0500 Systolic blood pressure 98 mm[Hg] Norm Elena ACADEMIC AFFAIRS MANAGER.FURNITURE INSPECTOR Work Phone: [facility] 04-06-2022 13:28-0500 Body weight 64.5 kg Britta Mantilla RN Work Phone: [facility] 04-06-2022 13:28-0500 Diastolic blood pressure 60 mm[Hg] Britta Mantilla RN Work Phone: [facility] 04-06-2022 13:28-0500 Systolic blood pressure 88 mm[Hg] Britta Mantilla RN Work Phone: [facility] 04-06-2022 13:27-0500 Body temperature 97.9 [degF] Britta Mantilla RN Work Phone: [facility] 04-06-2022 13:27-0500 Heart rate 108 /min Britta Most RN Work Phone: [facility] 04-06-2022 13:27-0500 Respiratory rate 16 /min Britta Most RN Work Phone: [facility] 04-06-2022 13:27-0500 SaO2% (BldA) [Mass fraction] 97 % Britta Most RN Work Phone: [facility] 04-03-2022 11:44-0500 Heart rate 99 /min Isela Patrizia TRUCK RENTAL CLERK Work Phone: [facility] 04-03-2022 11:44-0500 SaO2% (BldA) [Mass fraction] 99 % Isela Patrizia TRUCK RENTAL CLERK Work Phone: [facility] 04-03-2022 11:35-0500 Body temperature 97.81 [degF] Isela Patrizia TRUCK RENTAL CLERK Work Phone: [facility] 04-03-2022 11:35-0500 Diastolic blood pressure 76 mm[Hg] Isela Patrizia TRUCK RENTAL CLERK Work Phone: [facility] 04-03-2022 11:35-0500 Respiratory rate 18 /min Isela Patrizia TRUCK RENTAL CLERK Work Phone: [facility] 04-03-2022 11:35-0500 Systolic blood pressure 118 mm[Hg] Isela Patrizia TRUCK RENTAL CLERK Work Phone: [facility] 04-02-2022 17:14-0500 Body temperature 97.9 [degF] Britta Most RN Work Phone: [facility] 04-02-2022 17:14-0500 Diastolic blood pressure 78 mm[Hg] Britta Most RN Work Phone: [facility] 04-02-2022 17:14-0500 Heart rate 88 /min Britta Most RN Work Phone: [facility] 04-02-2022 17:14-0500 Respiratory rate 16 /min Britta Most RN Work Phone: [facility] 04-02-2022 17:14-0500 SaO2% (BldA) [Mass fraction] 98 % Britta Most RN Work Phone: [facility] 04-02-2022 17:14-0500 Systolic blood pressure 118 mm[Hg] Britta Most RN Work Phone: [facility] 03-31-2022 15:15-0500 Heart rate 110 /min Isela Patrizia TRUCK RENTAL CLERK Work Phone: [facility] 03-31-2022 15:15-0500 SaO2% (BldA) [Mass fraction] 99 % Isela Patrizia TRUCK RENTAL CLERK Work Phone: [facility] 03-31-2022 14:40-0500 Body temperature 97.59 [degF] Isela Patrizia TRUCK RENTAL CLERK Work Phone: [facility] 03-31-2022 14:40-0500 Body weight 66.68 kg Isela Patrizia TRUCK RENTAL CLERK Work Phone: [facility] 03-31-2022 14:40-0500 Diastolic blood pressure 66 mm[Hg] Isela Patrizia TRUCK RENTAL CLERK Work Phone: [facility] 03-31-2022 14:40-0500 Respiratory rate 16 /min Isela Patrizia TRUCK RENTAL CLERK Work Phone: [facility] 03-31-2022 14:40-0500 Systolic blood pressure 114 mm[Hg] Isela Patrizia TRUCK RENTAL CLERK Work Phone: [facility] 03-30-2022 15:12-0500 Body temperature 98.01 [degF] Britta Most RN Work Phone: [facility] 03-30-2022 15:12-0500 Diastolic blood pressure 82 mm[Hg] Britta Most RN Work Phone: [facility] 03-30-2022 15:12-0500 Heart rate 84 /min Britta Most RN Work Phone: [facility] 03-30-2022 15:12-0500 Respiratory rate 16 /min Britta Most RN Work Phone: [facility] 03-30-2022 15:12-0500 SaO2% (BldA) [Mass fraction] 98 % Britta Mantilla RN Work Phone: [facility] 03-30-2022 15:12-0500 Systolic blood pressure 122 mm[Hg] Britta Mantilla RN Work Phone: [facility] 03-27-2022 14:33-0500 Heart rate 100 /min Isela Patrizia TRUCK RENTAL CLERK Work Phone: [facility] 03-27-2022 14:33-0500 SaO2% (BldA) [Mass fraction] 99 % Isela Patrizia TRUCK RENTAL CLERK Work Phone: [facility] 03-27-2022 14:14-0500 Body temperature 97.59 [degF] Isela Patrizia TRUCK RENTAL CLERK Work Phone: [facility] 03-27-2022 14:14-0500 Diastolic blood pressure 74 mm[Hg] Isela Patrizia TRUCK RENTAL CLERK Work Phone: [facility] 03-27-2022 14:14-0500 Respiratory rate 18 /min Isela Patrizia TRUCK RENTAL CLERK Work Phone: [facility] 03-27-2022 14:14-0500 Systolic blood pressure 122 mm[Hg] Isela Patrizia TRUCK RENTAL CLERK Work Phone: [facility] 03-26-2022 12:46-0500 Body temperature 97.9 [degF] Doris Rivera RN Work Phone: [facility] 03-26-2022 12:46-0500 Body weight 68.04 kg Doris Rivera RN Work Phone: [facility] 03-26-2022 12:46-0500 Diastolic blood pressure 83 mm[Hg] Doris Rivera RN Work Phone: [facility] 03-26-2022 12:46-0500 Heart rate 82 /min Doris Rivera RN Work Phone: [facility] 03-26-2022 12:46-0500 Respiratory rate 20 /min Doris Rivera RN Work Phone: [facility] 03-26-2022 12:46-0500 SaO2% (BldA) [Mass fraction] 94 % Doris Rivera RN Work Phone: [facility] 03-26-2022 12:46-0500 Systolic blood pressure 114 mm[Hg] Doris Rivera RN Work Phone: [facility] 03-25-2022 12:07-0500 Diastolic blood pressure 77 mm[Hg] Isela Patrizia TRUCK RENTAL CLERK Work Phone: [facility] 03-25-2022 12:07-0500 Heart rate 77 /min Isela Patrizia TRUCK RENTAL CLERK Work Phone: [facility] 03-25-2022 12:07-0500 SaO2% (BldA) [Mass fraction] 98 % Isela Patrizia TRUCK RENTAL CLERK Work Phone: [facility] 03-25-2022 12:07-0500 Systolic blood pressure 110 mm[Hg] Isela Patrizia TRUCK RENTAL CLERK Work Phone: [facility] 03-25-2022 11:24-0500 Body temperature 97.81 [degF] Isela Patrizia TRUCK RENTAL CLERK Work Phone: [facility] 03-25-2022 11:24-0500 Respiratory rate 18 /min Isela Patrizia TRUCK RENTAL CLERK Work Phone: [facility] 03-24-2022 10:53-0500 Body temperature 97.7 [degF] Britta Mantilla RN Work Phone: [facility] 03-24-2022 10:53-0500 Body weight 68.4 kg Britta Mantilla RN Work Phone: [facility] 03-24-2022 10:53-0500 Diastolic blood pressure 84 mm[Hg] Britta Mantilla RN Work Phone: [facility] 03-24-2022 10:53-0500 Heart rate 72 /min Britta Mantilla RN Work Phone: [facility] 03-24-2022 10:53-0500 Respiratory rate 16 /min Britta Mantilla RN Work Phone: [facility] 03-24-2022 10:53-0500 SaO2% (BldA) [Mass fraction] 98 % Britta Mantilla RN Work Phone: [facility] 03-24-2022 10:53-0500 Systolic blood pressure 124 mm[Hg] Britta Mantilla RN Work Phone: [facility] 03-23-2022 13:25-0500 Body height 167.6 cm Skyla Winchesterams ACADEMIC AFFAIRS MANAGER.FURNITURE INSPECTOR Work Phone: [facility] 03-23-2022 13:25-0500 Body weight 70.4 kg Skyla Reinaams ACADEMIC AFFAIRS MANAGER.FURNITURE INSPECTOR Work Phone: [facility] 03-23-2022 11:27-0500 Diastolic blood pressure 77 mm[Hg] Terry Balderrama MD Work Phone: [facility] 03-23-2022 11:27-0500 Heart rate 97 /min Terry Balderrama MD Work Phone: [facility] 03-23-2022 11:27-0500 Systolic blood pressure 113 mm[Hg] Terry Balderrama MD Work Phone: [facility] 03-23-2022 11:25-0500 Body weight 68.04 kg Terry Balderrama MD Work Phone: [facility] 03-19-2022 12:03-0500 Heart rate 92 /min Isela Patrizia TRUCK RENTAL CLERK Work Phone: [facility] 03-19-2022 12:03-0500 SaO2% (BldA) [Mass fraction] 95 % Isela Patrizia TRUCK RENTAL CLERK Work Phone: [facility] 03-19-2022 11:37-0500 Body temperature 97.59 [degF] Isela Patrizia TRUCK RENTAL CLERK Work Phone: [facility] 03-19-2022 11:37-0500 Diastolic blood pressure 66 mm[Hg] Isela Patrizia TRUCK RENTAL CLERK Work Phone: [facility] 03-19-2022 11:37-0500 Respiratory rate 18 /min Isela Patrizia TRUCK RENTAL CLERK Work Phone: [facility] 03-19-2022 11:37-0500 Systolic blood pressure 116 mm[Hg] Isela Patrizia TRUCK RENTAL CLERK Work Phone: [facility] 03-19-2022 09:20-0500 Body temperature 97.3 [degF] Britta Mantilla RN Work Phone: [facility] 03-19-2022 09:20-0500 Diastolic blood pressure 76 mm[Hg] Britta Mantilla RN Work Phone: [facility] 03-19-2022 09:20-0500 Heart rate 76 /min Britta Mantilla RN Work Phone: [facility] 03-19-2022 09:20-0500 Respiratory rate 16 /min Britta Mantilla RN Work Phone: [facility] 03-19-2022 09:20-0500 SaO2% (BldA) [Mass fraction] 98 % Brittadominique Mantilla RN Work Phone: [facility] 03-19-2022 09:20-0500 Systolic blood pressure 108 mm[Hg] Britta Mantilla RN Work Phone: [facility] 03-18-2022 11:27-0500 Body temperature 96.49 [degF] Russ Monteiro MD Work Phone: [facility] 03-18-2022 11:27-0500 Body weight 71.22 kg Russ Monteiro MD Work Phone: [facility] 03-18-2022 11:27-0500 Diastolic blood pressure 66 mm[Hg] Russ Monteiro MD Work Phone: [facility] 03-18-2022 11:27-0500 Heart rate 84 /min Russ Monteiro MD Work Phone: [facility] 03-18-2022 11:27-0500 Respiratory rate 20 /min Russ Monteiro MD Work Phone: [facility] 03-18-2022 11:27-0500 SaO2% (BldA) [Mass fraction] 100 % Russ Monteiro MD Work Phone: [facility] 03-18-2022 11:27-0500 Systolic blood pressure 110 mm[Hg] Russ Monteiro MD Work Phone: [facility] 03-15-2022 15:37-0500 Body temperature 97.3 [degF] Britta Mantilla RN Work Phone: [facility] 03-15-2022 15:37-0500 Diastolic blood pressure 78 mm[Hg] Britta Mantilla RN Work Phone: [facility] 03-15-2022 15:37-0500 Heart rate 96 /min Britta Mantilla RN Work Phone: [facility] 03-15-2022 15:37-0500 Respiratory rate 16 /min Britta Mantilla RN Work Phone: [facility] 03-15-2022 15:37-0500 SaO2% (BldA) [Mass fraction] 98 % Britta Mantilla RN Work Phone: [facility] 03-15-2022 15:37-0500 Systolic blood pressure 124 mm[Hg] Britta Mantilla RN Work Phone: [facility] 03-12-2022 09:36-0500 Body temperature 97.7 [degF] Estefany Stern PT Work Phone: [facility] 03-12-2022 09:36-0500 Diastolic blood pressure 74 mm[Hg] Estefany Stern PT Work Phone: [facility] [facility] 03-12-2022 09:36-0500 Heart rate 114 /min Estefany Stern PT Work Phone: [facility] 03-12-2022 09:36-0500 Respiratory rate 18 /min Estefany Stern PT Work Phone: [facility] 03-12-2022 09:36-0500 SaO2% (BldA) [Mass fraction] 97 % Estefany HalStuart PT Work Phone: [facility] 03-12-2022 09:36-0500 Systolic blood pressure 120 mm[Hg] Estefany Stern PT Work Phone: [facility] 03-02-2022 06:35-0500 Diastolic blood pressure 78 mm[Hg] No Primary Care Physician [facility] 03-02-2022 06:35-0500 Heart rate 994 /min No Primary Care Physician [facility] 03-02-2022 06:35-0500 Respiratory rate 18 /min No Primary Care Physician [facility] 03-02-2022 06:35-0500 SaO2% (BldA) [Mass fraction] 95 % No Primary Care Physician [facility] 03-02-2022 06:35-0500 Systolic blood pressure 105 mm[Hg] No Primary Care Physician [facility] 03-02-2022 05:54-0500 Body temperature 98 [degF] No Primary Care Physician [facility] 03-02-2022 05:54-0500 Diastolic blood pressure 58 mm[Hg] No Primary Care Physician [facility] Work Phone: 03-02-2022 05:54-0500 Heart rate 110 /min No Primary Care Physician [facility] Work Phone: 03-02-2022 05:54-0500 Respiratory rate 20 /min No Primary Care Physician [facility] Work Phone: 03-02-2022 05:54-0500 SaO2% (BldA) [Mass fraction] 97 % No Primary Care Physician [facility] Work Phone: 03-02-2022 05:54-0500 Systolic blood pressure 83 mm[Hg] No Primary Care Physician [facility] Work Phone: 03-01-2022 20:13-0500 Body height 167.64 cm No Primary Care Physician [facility] 03-01-2022 20:13-0500 Body mass index (BMI) [Ratio] 28.6 kg/m2 No Primary Care Physician [facility] 03-01-2022 20:13-0500 Body weight 80.5 kg No Primary Care Physician [facility] 02-27-2022 05:44-0500 Diastolic blood pressure 72 mm[Hg] No Primary Care Physician [facility] 02-27-2022 05:44-0500 Heart rate 81 /min No Primary Care Physician [facility] 02-27-2022 05:44-0500 Respiratory rate 16 /min No Primary Care Physician [facility] 02-27-2022 05:44-0500 Systolic blood pressure 126 mm[Hg] No Primary Care Physician [facility] 02-27-2022 04:02-0500 Body height 167.64 cm No Primary Care Physician [facility] Work Phone: 02-27-2022 04:02-0500 Body mass index (BMI) [Ratio] 29.6 kg/m2 No Primary Care Physician [facility] 02-27-2022 04:02-0500 Body temperature 96.8 [degF] No Primary Care Physician [facility] 02-27-2022 04:02-0500 Body weight 83.3 kg No Primary Care Physician [facility] 02-27-2022 04:02-0500 SaO2% (BldA) [Mass fraction] 94 % No Primary Care Physician [facility] 02-26-2022 09:52-0500 Heart rate 117 /min Estefany Stern PT Work Phone: [facility] 02-26-2022 09:52-0500 SaO2% (BldA) [Mass fraction] 98 % Estefany Stern PT Work Phone: [facility] 02-26-2022 09:10-0500 Body temperature 97.7 [degF] Estfeany Stern PT Work Phone: [facility] 02-26-2022 09:10-0500 Diastolic blood pressure 80 mm[Hg] Estefany Stern PT Work Phone: [facility] 02-26-2022 09:10-0500 Respiratory rate 18 /min Estefany Stern PT Work Phone: [facility] 02-26-2022 09:10-0500 Systolic blood pressure 128 mm[Hg] Estefany Stern PT Work Phone: [facility] 02-25-2022 10:12-0500 Body temperature 97.81 [degF] Jovanna Heaton RN Work Phone: [facility] 02-25-2022 10:12-0500 Diastolic blood pressure 74 mm[Hg] Jovanna Heaton RN Work Phone: [facility] 02-25-2022 10:12-0500 Heart rate 101 /min Jovanna Heaton RN Work Phone: [facility] 02-25-2022 10:12-0500 Respiratory rate 18 /min Jovanna Heaton RN Work Phone: [facility] 02-25-2022 10:12-0500 SaO2% (BldA) [Mass fraction] 95 % Jovanna Heaton RN Work Phone: [facility] 02-25-2022 10:12-0500 Systolic blood pressure 142 mm[Hg] Jovanna Heaton RN Work Phone: [facility] 02-01-2022 16:43-0500 Diastolic blood pressure 72 mm[Hg] No Primary Care Physician [facility] 02-01-2022 16:43-0500 Heart rate 93 /min No Primary Care Physician [facility] 02-01-2022 16:43-0500 Respiratory rate 18 /min No Primary Care Physician [facility] 02-01-2022 16:43-0500 SaO2% (BldA) [Mass fraction] 92 % No Primary Care Physician [facility] 02-01-2022 16:43-0500 Systolic blood pressure 118 mm[Hg] No Primary Care Physician [facility] 02-01-2022 16:35-0500 Inhaled oxygen flow rate 2 L/min No Primary Care Physician [facility] 02-01-2022 16:30-0500 Body temperature 96 [degF] No Primary Care Physician [facility] 02-01-2022 13:45-0500 Body height 167.64 cm No Primary Care Physician [facility] Work Phone: 02-01-2022 13:45-0500 Body mass index (BMI) [Ratio] 32.3 kg/m2 No Primary Care Physician [facility] 02-01-2022 13:45-0500 Body weight 90.71 kg No Primary Care Physician [facility] 01-30-2022 11:08-0500 Diastolic blood pressure 70 mm[Hg] Britta Mantilla RN Work Phone: [facility] 01-30-2022 11:08-0500 Systolic blood pressure 102 mm[Hg] Britta Mantilla RN Work Phone: [facility] 01-30-2022 10:28-0500 Body temperature 98.1 [degF] Britta Mantilla RN Work Phone: [facility] 01-30-2022 10:28-0500 Heart rate 64 /min Britta Mantilla RN Work Phone: [facility] 01-30-2022 10:28-0500 Respiratory rate 16 /min Brittadominique Mantilla RN Work Phone: [facility] 01-30-2022 10:28-0500 SaO2% (BldA) [Mass fraction] 98 % Brittadominique Mantilla RN Work Phone: [facility] 01-09-2022 10:02-0500 Body height 167.64 cm No Primary Care Physician [facility] Work Phone: 01-07-2022 08:47-0500 Diastolic blood pressure 78 mm[Hg] Pacc 4 Work Phone: [facility] 01-07-2022 08:47-0500 Systolic blood pressure 150 mm[Hg] Pacc 4 Work Phone: [facility] 01-07-2022 07:54-0500 Body height 167.6 cm Pacc 4 Work Phone: [facility] 01-07-2022 07:54-0500 Body temperature 97.59 [degF] Pac 4 Work Phone: [facility] 01-07-2022 07:54-0500 Body weight 88.63 kg Pac 4 Work Phone: [facility] 01-07-2022 07:54-0500 Heart rate 47 /min Pac 4 Work Phone: [facility] 01-07-2022 07:54-0500 SaO2% (BldA) [Mass fraction] 97 % Pac 4 Work Phone: [facility] 12-10-2021 09:50-0400 Body height 167.6 cm ANTONI Cheung MD Work Phone: [facility] 12-10-2021 09:50-0400 Body weight 85.73 kg ANTONI Cheung MD Work Phone: [facility] 09-17-2021 14:46-0400 Body height 167.6 cm ANTONI Cheung MD Work Phone: [facility] 09-17-2021 14:46-0400 Body weight 84.82 kg ANTONI Cheung MD Work Phone: [facility] 07-18-2021 12:41-0400 Body temperature 97.11 [degF] Alexia Rao ACADEMIC AFFAIRS MANAGER.FURNITURE INSPECTOR Work Phone: [facility] 07-18-2021 12:41-0400 Body weight 85.96 kg Alexia Rao ACADEMIC AFFAIRS MANAGER.FURNITURE INSPECTOR Work Phone: [facility] 07-18-2021 12:41-0400 Diastolic blood pressure 72 mm[Hg] Alexia Rao ACADEMIC AFFAIRS MANAGER.FURNITURE INSPECTOR Work Phone: [facility] 07-18-2021 12:41-0400 Heart rate 52 /min Alexia Rao ACADEMIC AFFAIRS MANAGER.FURNITURE INSPECTOR Work Phone: [facility] 07-18-2021 12:41-0400 SaO2% (BldA) [Mass fraction] 97 % [place]et[place] Rao ACADEMIC AFFAIRS MANAGER.FURNITURE INSPECTOR Work Phone: [facility] 07-18-2021 12:41-0400 Systolic blood pressure 131 mm[Hg] Alexia Rao ACADEMIC AFFAIRS MANAGERBOGDAN Work Phone: [facility] 07-15-2021 14:15-0400 Diastolic blood pressure 84 mm[Hg] Marisela Rome MD, MD Work Phone: [facility] 07-15-2021 14:15-0400 Heart rate 58 /min Marisela Rome MD, MD Work Phone: [facility] 07-15-2021 14:15-0400 Systolic blood pressure 177 mm[Hg] Marisela Rome MD, MD Work Phone: [facility] 07-15-2021 14:12-0400 Body temperature 97.81 [degF] Marisela Rome MD, MD Work Phone: [facility] 07-15-2021 14:12-0400 Body weight 86.86 kg Marisela Rome MD, MD Work Phone: [facility] 07-15-2021 14:12-0400 Respiratory rate 15 /min Marisela Rome MD, MD Work Phone: [facility] 07-15-2021 14:12-0400 SaO2% (BldA) [Mass fraction] 99 % Marisela Rome MD, MD Work Phone: [facility] 07-08-2021 13:39-0400 Body temperature 97 [degF] Marisela Rome MD, MD Work Phone: [facility] 07-08-2021 13:39-0400 Body weight 86.64 kg Marisela Rome MD, MD Work Phone: [facility] 07-08-2021 13:39-0400 Diastolic blood pressure 77 mm[Hg] Marisela Rome MD, MD Work Phone: [facility] 07-08-2021 13:39-0400 Heart rate 70 /min Marisela Rome MD, MD Work Phone: [facility] 07-08-2021 13:39-0400 SaO2% (BldA) [Mass fraction] 94 % Marisela Rome MD, MD Work Phone: [facility] 07-08-2021 13:39-0400 Systolic blood pressure 146 mm[Hg] Marisela Rome MD, MD Work Phone: [facility] 07-04-2021 12:35-0400 Body temperature 97.39 [degF] Alexia Rao ACADEMIC AFFAIRS MANAGER.FURNITURE INSPECTOR Work Phone: [facility] 07-04-2021 12:35-0400 Body weight 87.54 kg [place] Rao ACADEMIC AFFAIRS MANAGER.FURNITURE INSPECTOR Work Phone: [facility] 07-04-2021 12:35-0400 Diastolic blood pressure 64 mm[Hg] Alexia Rao ACADEMIC AFFAIRS MANAGER.FURNITURE INSPECTOR Work Phone: [facility] 07-04-2021 12:35-0400 Heart rate 52 /min [place] Rao ACADEMIC AFFAIRS MANAGER.FURNITURE INSPECTOR Work Phone: [facility] 07-04-2021 12:35-0400 SaO2% (BldA) [Mass fraction] 99 % [place] Rao ACADEMIC AFFAIRS MANAGER.FURNITURE INSPECTOR Work Phone: [facility] 07-04-2021 12:35-0400 Systolic blood pressure 111 mm[Hg] Alexia Rao ACADEMIC AFFAIRS MANAGER.FURNITURE INSPECTOR Work Phone: [facility] 07-01-2021 13:56-0400 Diastolic blood pressure 71 mm[Hg] Marisela Rome MD, MD Work Phone: [facility] 07-01-2021 13:56-0400 Heart rate 54 /min Marisela Rome MD, MD Work Phone: [facility] 07-01-2021 13:56-0400 Systolic blood pressure 146 mm[Hg] Marisela Rome MD, MD Work Phone: [facility] 07-01-2021 13:31-0400 Body temperature 97 [degF] Marisela Rome MD, MD Work Phone: [facility] 07-01-2021 13:31-0400 Body weight 87.09 kg Marisela Rome MD, MD Work Phone: [facility] 07-01-2021 13:31-0400 Respiratory rate 15 /min Marisela Rome MD, MD Work Phone: [facility] 07-01-2021 13:31-0400 SaO2% (BldA) [Mass fraction] 99 % Marisela Rome MD, MD Work Phone: [facility] 06-24-2021 13:59-0400 Body temperature 97.11 [degF] Marisela Rome MD, MD Work Phone: [facility] 06-24-2021 13:59-0400 Body weight 87.32 kg Marisela Rome MD, MD Work Phone: [facility] 06-24-2021 13:59-0400 Diastolic blood pressure 69 mm[Hg] Marisela Rome MD, MD Work Phone: [facility] 06-24-2021 13:59-0400 Heart rate 61 /min Marisela Rome MD, MD Work Phone: [facility] 06-24-2021 13:59-0400 Respiratory rate 16 /min Marisela Rome MD, MD Work Phone: [facility] 06-24-2021 13:59-0400 SaO2% (BldA) [Mass fraction] 98 % Marisela Rome MD, MD Work Phone: [facility] 06-24-2021 13:59-0400 Systolic blood pressure 152 mm[Hg] Marisela Rome MD, MD Work Phone: [facility] 06-18-2021 08:45-0400 Body temperature 97.5 [degF] Helen Lakhani DO Work Phone: [facility] 06-18-2021 08:45-0400 Body weight 89.36 kg Helen Lakhani DO Work Phone: [facility] 06-18-2021 08:45-0400 Diastolic blood pressure 67 mm[Hg] Helen Masci DO Work Phone: [facility] 06-18-2021 08:45-0400 Heart rate 60 /min Helen Lakhani DO Work Phone: [facility] 06-18-2021 08:45-0400 SaO2% (BldA) [Mass fraction] 98 % Helen Lakhani NetScaler Work Phone: [facility] 06-18-2021 08:45-0400 Systolic blood pressure 150 mm[Hg] Helen Lakhani DO Work Phone: [facility] 06-09-2021 08:54-0400 Body height 168.91 cm [facility] Work Phone: 06-09-2021 08:54-0400 Body mass index (BMI) [Ratio] 30.9 kg/m2 [facility] Work Phone: 06-09-2021 08:54-0400 Body temperature 97 [degF] [facility] Work Phone: 06-09-2021 08:54-0400 Body weight 88.45 kg [facility] Work Phone: 06-09-2021 08:54-0400 Diastolic blood pressure 72 mm[Hg] [facility] Work Phone: 06-09-2021 08:54-0400 Heart rate 52 /min [facility] Work Phone: 06-09-2021 08:54-0400 Respiratory rate 18 /min [facility] Work Phone: 06-09-2021 08:54-0400 SaO2% (BldA) [Mass fraction] 97 % [facility] Work Phone: 06-09-2021 08:54-0400 Systolic blood pressure 141 mm[Hg] [facility] Work Phone: 06-06-2021 13:26-0400 Body height 168 cm Helen Lakhani NetScaler Work Phone: [facility] 06-06-2021 13:26-0400 Body temperature 96.91 [degF] Helen Lakhani DO Work Phone: [facility] 06-06-2021 [id number] Body weight 89.36 kg Helen Lakhani DO Work Phone: [facility] 06-06-2021 13:26-0400 Diastolic blood pressure 74 mm[Hg] Helen Lakhani DO Work Phone: [facility] 06-06-2021 13:26-0400 Heart rate 56 /min Helen Lakhani DO Work Phone: [facility] 06-06-2021 13:26-0400 SaO2% (BldA) [Mass fraction] 97 % Helen Lakhani DO Work Phone: [facility] 06-06-2021 13:26-0400 Systolic blood pressure 170 mm[Hg] Helen Lakhani DO Work Phone: [facility] 06-02-2021 09:19-0400 Diastolic blood pressure 75 mm[Hg] Marisela Rome MD, MD Work Phone: [facility] 06-02-2021 09:19-0400 Heart rate 48 /min Marisela Rome MD, MD Work Phone: [facility] 06-02-2021 09:19-0400 Systolic blood pressure 163 mm[Hg] Marisela Rome MD, MD Work Phone: [facility] 06-02-2021 09:12-0400 Body temperature 97.2 [degF] Marisela Rome MD, MD Work Phone: [facility] 06-02-2021 09:12-0400 Body weight 89.81 kg Marisela Rome MD, MD Work Phone: [facility] 06-02-2021 09:12-0400 Respiratory rate 15 /min Marisela Rome MD, MD Work Phone: [facility] 06-02-2021 09:12-0400 SaO2% (BldA) [Mass fraction] 98 % Marisela Rome MD, MD Work Phone: [facility] 05-29-2021 11:10-0400 Body temperature 97.2 [degF] Susu Huitron MD Work Phone: [facility] 05-29-2021 11:10-0400 Diastolic blood pressure 79 mm[Hg] Susu Huitron MD Work Phone: [facility] 05-29-2021 11:10-0400 Heart rate 51 /min Susu Huitron MD Work Phone: [facility] 05-29-2021 11:10-0400 Respiratory rate 16 /min Susu Huitron MD Work Phone: [facility] 05-29-2021 11:10-0400 SaO2% (BldA) [Mass fraction] 98 % Susu Huitron MD Work Phone: [facility] 05-29-2021 11:10-0400 Systolic blood pressure 135 mm[Hg] Susu Huitron MD Work Phone: [facility] 05-29-2021 11:04-0400 Body weight 88.72 kg Susu Huitron MD Work Phone: [facility] 05-29-2021 10:07-0400 Body height 167.6 cm Caty Bowens MD Work Phone: [facility] 05-29-2021 10:07-0400 Body temperature 97.2 [degF] Caty Bowens MD Work Phone: [facility] 05-29-2021 10:07-0400 Body weight 89.36 kg Caty Bowens MD Work Phone: [facility] 05-29-2021 10:07-0400 Diastolic blood pressure 79 mm[Hg] Caty Bowens MD Work Phone: [facility] 05-29-2021 10:07-0400 Heart rate 51 /min Caty Bowens MD Work Phone: [facility] 05-29-2021 10:07-0400 Respiratory rate 16 /min Caty Bowens MD Work Phone: [facility] 05-29-2021 10:07-0400 SaO2% (BldA) [Mass fraction] 98 % Caty Bowens MD Work Phone: [facility] 05-29-2021 10:07-0400 Systolic blood pressure 135 mm[Hg] Caty Bowens MD Work Phone: [facility] 02-10-2021 14:16-0500 Body height 66.04 cm No PCP None [facility] Work Phone: 02-10-2021 14:16-0500 Body mass index (BMI) [Ratio] 211.46 kg/m2 No PCP [facility] Work Phone: 02-10-2021 14:16-0500 Body surface area Derived from formula 1.03 m2 No PCP None [facility] Work Phone: 02-10-2021 14:16-0500 Body temperature 97.1 [degF] No PCP None -Otolaryngolo [facility] [address] Work Phone: 02-10-2021 14:16-0500 Body weight 92.22 kg No PCP None -Otolaryngolog [facility] [address] Work Phone: 08-12-2020 11:33-0400 Body height 165.1 cm No PCP None [facility] Work Phone: 08-12-2020 11:33-0400 Body mass index (BMI) [Ratio] 32.79 kg/m2 No PCP None [facility] Work Phone: 08-12-2020 11:33-0400 Body surface area Derived from formula 1.97 m2 No PCP None [facility] Work Phone: 08-12-2020 11:33-0400 Body weight 89.39 kg No PCP None -Otolaryngolog y- [facility] [address] Work Phone: Encounters Encounter Date Encounter Type Care Provider Facility Start: 01-03-2025 Encounter for other preprocedural examination [facility] Start: 01-02-2025 End: 01-03-2025 ambulatory [facility] Facility:[facility] Start: 01-02-2025 ambulatory [facility] Facility:[facility] Start: 12-26-2024 End: 12-26-2024 ambulatory KATY FAUST Facility:[facility] Start: 12-26-2024 Encounter for other preprocedural examination SRINIVASAN DA SILVA [facility] Start: 12-22-2024 End: 12-22-2024 ambulatory [facility] Facility:[facility] Start: 11-29-2024 End: 11-29-2024 Patient encounter procedure Carlos Trujillo OFFICE MACHINES WIRER-C -[facility] Work Phone: Start: 11-29-2024 End: 11-29-2024 Patient encounter status Carlos Trujillo OFFICE MACHINES WIRER-[facility] Start: 11-29-2024 End: 11-29-[address] Katy Faust MD Work Phone: -[facility] Start: 11-15-2024 ambulatory Carlos Trujillo OFFICE MACHINES WIRER Facility :[facility] Start: 10-26-2024 End: 10-27-2024 Admission to same day surgery center Katy Faust MD Work Phone: [facility] [place] Comment on above: Spinal surgery for s tenosis Start: 10-26-2024 End: 10-27-2024 ambulatory Katy Faust MD Work Phone: [facility] [place] Start: 10-13-2024 End: 10-13-[address] Howard Siddiqui MD -[facility] Work Phone: Start: 10-13-2024 End: 10-13-[address] Katy Faust MD Work Phone: -[facility] Start: 10-10-2024 Non-patient / Non-visit Dr. Raghu boothe MD -[facility] Start: 10-10-2024 End: 10-10-[address] Katy Faust MD Work Phone: -Cardiovascular Services Start: 10-10-2024 End: 10-10-2024 Patient encounter procedure Naty CAMACHO -Cardiovascular Services Work Phone: Start: 10-10-2024 End: 10-10-2024 ambulatory Katy Faust Facility:[facility] Start: 09-22-2024 End: 09-22-2024 ambulatory Howard Siddiqui Facility:[facility] Start: 09-22-2024 End: 09-22-[address] Howard Siddiqui MD -Physical Therapy Work Phone: Start: 09-20-2024 End: 09-20-[address] Howard Siddiqui MD -[facility] Work Phone: Start: 09-20-2024 End: 09-20-2024 ambulatory Howard Siddiqui Facility:[facility] Start: 09-13-2024 End: 09-13-[address] Howard Siddiqui MD -[facility] Work Phone: Start: 09-13-2024 End: 09-13-2024 ambulatory Howard Siddiqui Facility:[facility] Start: 08-23-2024 End: 08-23-2024 Patient encounter procedure Naty CAMACHO -[facility] Work Phone: Start: 08-23-2024 End: 08-23-[address] Katy Faust MD Work Phone: [facility] Work Phone: Start: 08-15-2024 End: 08-15-2024 Patient encounter procedure Norm Parker APRN.FURNITURE INSPECTOR Work Phone: [facility] [place] Comment on above: Tendonitis (Primary Dx); Muscle tightness; Spinal stenosis of lumbar region without neurogenic claudication; History of malignant neoplasm of rectum; Presence of ileostomy (HCC) Start: 08-15-2024 End: 08-15-2024 ambulatory NORM ELENA Facility:[facility] Start: 08-13-2024 End: 10-31-2024 E-mail encounter from caregiver Katy Faust MD Work Phone: [facility] [place] Start: 08-13-2024 End: 10-31-2024 Patient encounter procedure Katy Faust MD Work Phone: [facility] [place] Comment on above: Appointment Request Start: 08-03-2024 End: 08-08-2024 ambulatory [facility] Provider [facility] [place] Comment on above: Ostomy pouches from [facility] Start: 08-01-2024 Non-patient / Non-visit Dr. Raghu boothe MD -[facility] Start: 08-01-2024 End: 08-01-[address] Katy Faust MD Work Phone: [facility] Work Phone: Start: 08-01-2024 End: 08-01-2024 Patient encounter procedure Naty CAMACHO -Cardiovascular Services Work Phone: Start: 07-31-2024 End: 07-31-2024 Nursing evaluation of patient and report [facility] Work Phone: Colorectal Surgery Comment on above: Attention to ileosto my (HCC) (Primary Dx) Start: 07-31-2024 End: 08-01-2024 ambulatory KATY FAUST Facility:[facility] Start: 07-17-2024 End: 07-17-2024 Nursing evaluation of patient and report [facility] Work Phone: Col[facility] Surgery Comment on above: Attention to ileosto my (HCC) (Primary Dx) Start: 07-17-2024 End: 07-17-2024 ambulatory KATY FAUST Facility:[facility] Start: 07-06-2024 End: 07-06-[address] Howard Siddiqui MD -[facility] Work Phone: Start: 07-06-2024 End: 07-06-2024 ambulatory Howard Siddiqui Facility:[facility] Start: 07-05-2024 End: 07-05-2024 Telephone encounter Katy Faust MD Work Phone: [facility] [place] Comment on above: Patient Update Start: 07-05-2024 End: 07-05-2024 Patient encounter procedure Norm Singletaryr ACADEMIC AFFAIRS MANAGER.FURNITURE INSPECTOR Work Phone: [facility] [place] Comment on above: Skin ulcer of abdome n, with fat layer exposed (HCC) (Primary Dx); Presence of ileostomy (HCC); Anal squamous cell carcinoma (HCC) Start: 07-05-2024 End: 07-05-2024 ambulatory NORM PARKER Facility:[facility] Start: 07-03-2024 End: 07-03-2024 ambulatory Katy Faust MD Work Phone: [facility] [place] Comment on above: Ulcer Start: 05-31-2024 End: 05-31-2024 ambulatory KATY FAUST Facility:[facility] Start: 05-31-2024 End: 05-31-2024 Office outpatient visit 25 minutes Katy Faust MD Work Phone: [facility] [place] Comment on above: Spinal stenosis of l umbar region with neurogenic claudication (Primary Dx); Lumbar radiculopathy; Pain in both lower extremities; Bilateral lower extremity edema; Presence of ileostomy (HCC) Start: 05-25-2024 End: 05-26-2024 ambulatory Katy Faust MD Work Phone: [facility] [place] Comment on above: Edema and the limite d use of my legs. Start: 04-25-2024 End: 04-25-2024 Emergency department patient visit Dr. Donovan Mccabe DO -Emergency Department Work Phone: Start: 04-21-2024 End: 04-21-[address] Howard Siddiqui MD -[employer] [facility] Work Phone: Start: 04-21-2024 End: 04-21-2024 ambulatory Howard Siddiqui Facility:[facility] Start: 03-27-2024 End: 03-27-2024 Subsequent hospital visit by physician [facility] Comment on above: Acoustic neuroma (Mu lti) Start: 03-27-2024 End: 03-27-2024 ambulatory GISELA HAYES [facility] Start: 03-02-2024 End: 03-02-2024 ambulatory Zaira De Jesus Facility:[facility] Start: 02-25-2024 ambulatory Raghu Reynolds [facility] Start: 02-25-2024 End: 02-25-2024 ambulatory Naty Amato Facility:[facility] Start: 02-18-2024 End: 02-18-2024 ambulatory Robbie Dorina LAUREANO [facility] Start: 02-18-2024 End: 02-18-2024 Patient encounter procedure [facility] Cam [facility] Comment on above: Population Health Na vigation Outreach (ACO WORKBENC LEA/) Start: 02-14-2024 End: 02-28-2024 ambulatory Katy Faust MD Work Phone: [facility] [place] Comment on above: Flank pain. Start: 02-14-2024 End: 02-14-2024 Telephone encounter Katy Faust MD Work Phone: [facility] [place] Comment on above: Patient Update Start: 02-03-2024 End: 02-03-2024 ambulatory Howard Siddiqui Facility:[facility] Start: 01-18-2024 End: 01-19-2024 ambulatory Howardalicia Siddiqui Facility:[facility] Start: 01-18-2024 ambulatory Howard Siddiqui Facility:[facility] Start: 01-11-2024 End: 01-11-2024 ambulatory Howard Siddiqui Facility:[facility] Start: 01-05-2024 End: 01-05-2024 ambulatory Howard Siddiqui Facility:[facility] Start: 01-04-2024 End: 01-04-2024 Patient encounter procedure Norm Parker APRN.CNP Work Phone: [facility] [place] Comment on above: Cervical radiculopat hy (Primary Dx); Spinal stenosis in cervical region; Protrusion of cervical intervertebral disc; Pre-op evaluation; Status post coronary artery bypass graft; PVD (peripheral vascular disease) (HCC); History of DVT (deep vein thrombosis) Start: 01-04-2024 End: 01-04-2024 Preprocedural examination done Norm Parker APRN.FURNITURE INSPECTOR Work Phone: [facility] Start: 01-04-2024 End: 01-04-2024 ambulatory KATY FAUST Facility:[facility] Start: 01-04-2024 Encounter for other preprocedural examination NORM PARKER [facility] Start: 12-22-2023 End: 12-22-2023 Telephone encounter Katy Faust MD Work Phone: [facility] [place] Start: 11-30-2023 End: 11-30-2023 Patient encounter procedure Norm Parker APRN.FURNITURE INSPECTOR Work Phone: [facility] [place] Comment on [...] Katy Faust MD Work Phone: [facility] [place] Comment on above: Refill Request Start: 10-18-2023 End: 11-09-2023 ambulatory Katy Faust MD Work Phone: [facility] [place] Comment on above: ostomy bags Start: 09-24-2023 Telephone encounter Linda iqbal APRN.FURNITURE INSPECTOR Work Phone: Pre Anesthesia Start: 09-22-2023 End: [...] bypass graft with angina pectoris, unspecified whether [place] or transplanted heart (HCC); History of pulmonary embolism; Bilateral carotid artery stenosis; PVD (peripheral vascular disease) (HCC); History of DVT (deep vein thrombosis); Rectal cancer (HCC) Start: 09-22-2023 End: 09-22-2023 Preprocedural examination done Pacc Main 1 Work Phone: [facility] Work Phone: Start: 09-22-2023 End: 09-22-2023 Patient encounter procedure I Dutch Cheung MD Work Phone: Colorectal Surgery Comment on above: History of rectal ca ncer (Primary Dx) Start: 08-16-[address] [facility] [place] I Dutch Cheung MD Work Phone: Colorectal Surgery Comment on above: MRI of lower spine. Start: 08-16-2023 ambulatory I Dutch Cheung MD Work Phone: Colorectal Surgery Start: 08-03-[address] [facility] I Dutch Cheung MD Work Phone: Colorectal Surgery Start: 08-03-2023 ambulatory I Dutch Cheung MD Work Phone: Colorectal Surgery Start: 08-02-2023 ambulatory Katy beard MD Work Phone: [facility] [place] Comment on above: Ostomy pouches from [facility] [...] Start: 07-14-2023 End: 07-14-2023 ambulatory SABRINA MUÑIZ [facility] Start: 07-14-2023 End: 07-14-2023 Office outpatient new 60 minutes Sabrina Muñiz MD Work Phone: [facility] Comment on above: Rectal bleeding (Nalini la Dx); History of rectal cancer; Colorectal anastomotic stricture Start: 07-08-2023 End: 07-08-2023 Admission to same day surgery center Dr. Katy Faust Work Phone: [facility]-Valuation Manager/Special Procedures Work Phone: Start: 07-08-2023 End: 07-08-[address] 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 Katy Faust Work Phone: [facility]-Emergency Department Work Phone: Start: 06-11-2023 Orders Only Michael Christian MD Work Phone: Orthopaedics Comment on above: Pain in left arm (Pr imary Dx) Start: 06-04-2023 Non-patient / Non-visit Dr. Carey Faust Work Phone: [facility] Start: 06-04-2023 End: 06-04-[address] Katy Faust Work Phone: [facility] Work Phone: Start: 06-04-2023 End: 06-04-[address] Katy Faust Work Phone: [facility]-Cardiovascula r Services Work Phone: Start: 05-31-2023 End: 05-31-2023 Patient encounter procedure Mary Anne Alejandro ACADEMIC AFFAIRS MANAGER.FURNITURE INSPECTOR Work Phone: [facility] Comment on above: Ingrown nail of grea t toe (Primary Dx) Start: 05-20-2023 End: 05-20-[address] Katy Faust Work Phone: [facility] Work Phone: Start: 05-05-2023 End: 05-05-[address] Katy Faust Work Phone: [facility] Work Phone: Start: 04-27-2023 End: 04-27-2023 [facility] [place] Comment on above: Acute deep vein thro mbosis (DVT) of proximal vein of left lower extremity (HCC) (Primary Dx) Start: 04-21-2023 ambulatory Katy beard MD Work Phone: [facility] Start: 04-21-2023 Patient encounter procedure Katy Faust MD Work Phone: [facility] [place] Comment on above: Referral Start: 04-13-2023 End: 04-13-2023 Anticoagulant drug monitoring [facility] Work Phone: [facility] [place] Comment on above: Acute deep vein thro mbosis (DVT) of proximal vein of left lower extremity (HCC) (Primary Dx) Start: 03-24-2023 End: 03-24-2023 Subsequent hospital visit by physician Luis [facility] Comment on above: Acoustic neuroma (CM S/HCC) Start: 03-24-2023 End: 03-24-2023 ambulatory GISELAPILI HAYES [facility] Start: 12-30-2022 Refill Norm Parker APRN.CNP Work Phone: [facility] [place] Comment on above: Refill Request Start: 12-29-2022 End: 12-29-2022 Anticoagulant drug monitoring [facility] Work Phone: [facility] [place] Comment on above: Acute deep vein thro mbosis (DVT) of proximal vein of left lower extremity (HCC) (Primary Dx) Start: 12-15-2022 End: 12-15-2022 Anticoagulant drug monitoring [facility] Work Phone: [facility] [place] Comment on above: Acute deep vein thro mbosis (DVT) of proximal vein of left lower extremity (HCC) (Primary Dx) Start: 12-03-2022 ambulatory JUSTIN WILLIAM Facility: [facility] Start: 12-03-2022 End: 12-03-2022 Subsequent hospital visit by physician Justin William MD Work Phone: [facility] Radiology Comment on above: S/P IVC filter [Z95. 828] Start: 11-27-2022 Telephone encounter [facility] Radiology Comment on above: Radiology Pre Proced ure Instructions Start: 11-17-2022 End: 11-17-2022 Anticoagulant drug monitoring [facility] Work Phone: [facility] [place] Comment on above: Acute deep vein thro [...] Start: 11-03-2022 End: 11-03-2022 Anticoagulant drug monitoring [facility] Work Phone: [facility] [place] Comment on above: Acute deep vein thro mbosis (DVT) of proximal vein of left lower extremity (HCC) (Primary Dx) Start: 11-03-2022 End: 11-03-2022 Patient encounter procedure Terry Balderrama MD Work Phone: Vascular Medicine Comment on above: 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) (Primary Dx); S/P IVC filter; Current use of assisted anticoagulation; Bruit of right carotid artery; Atherosclerosis of aorta (HCC) Start: 10-22-2022 Telephone encounter Robert nunez MD Work Phone: [facility] Comment on above: Appointment Start: 10-01-2022 Telephone encounter Yessica wilson APRN.FURNITURE INSPECTOR Work Phone: [facility] Comment on above: Patient Question Start: 09-30-2022 Telephone encounter Yessica wilson APRN.FURNITURE INSPECTOR Work Phone: [facility] Comment on above: Appointment Deep vein thrombosis (DVT) of both lower extremities, unspecified chronicity, unspecified vein (HCC) (Primary Dx); 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) Start: 09-23-2022 ambulatory Katy beard MD Work Phone: [facility] [place] Comment on above: colon tissue in stoo l Start: 09-07-2022 End: 09-07-2022 Anticoagulant drug monitoring [facility] Work Phone: [facility] [place] Comment on above: Acute deep vein thro mbosis (DVT) of proximal vein of left lower extremity (HCC) (Primary Dx) Start: 08-25-2022 End: 08-25-2022 Anticoagulant drug monitoring [facility] Work Phone: [facility] [place] Comment on above: Acute deep vein thro mbosis (DVT) of proximal vein of left lower extremity (HCC) (Primary Dx) Start: 08-17-2022 ambulatory Ramiro Cheung MD Work Phone: Colorectal Surgery Comment on above: Bleeding Start: 08-16-2022 ambulatory Ramiro Cheung MD Work Phone: Colorectal Surgery Comment on above: Bleeding Start: 08-11-2022 End: 08-11-2022 [facility] Work Phone: [facility] [place] Comment on above: Acute deep vein thro mbosis (DVT) of proximal vein of left lower extremity (HCC) (Primary Dx) Start: 08-03-2022 Telephone encounter Katy dasilva MD Work Phone: [facility] [place] Comment on above: Orders (protime) Start: 08-03-2022 End: 08-03-2022 [facility] Work Phone: [facility] [place] Comment on above: Acute deep vein thro mbosis (DVT) of proximal vein of left lower extremity (HCC) (Primary Dx) Start: 07-25-2022 Telephone encounter Katy dasilva MD Work Phone: [facility] [place] Comment on above: Anticoagulation Start: 07-08-2022 Telephone encounter Norm horan APRN.FURNITURE INSPECTOR Work Phone: [facility] [place] Comment on above: need office notes ch anged Start: 06-16-2022 ambulatory Katy beard MD Work Phone: [facility] [place] Comment on above: [facility] Start: 06-04-2022 Anticoagulant drug monitoring Terry Balderrama MD Work Phone: Vascular Medicine Comment on above: anticoagulation Start: 06-04-2022 E-mail encounter fro m caregiver Terry Balderrama MD Work Phone: [facility] Start: 05-25-2022 Telephone encounter Katy [...] Start: 05-20-2022 End: 05-20-2022 Admission to establishment [facility] 5 Work Phone: [facility] Start: 05-20-2022 End: 05-20-2022 ambulatory [facility] 5 Work Phone: Pre Anesthesia Comment on above: Pre-op evaluation (P rimary Dx); Acoustic neuroma (HCC); 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, unspecified whether [place] or transplanted heart (HCC); Pulmonary embolism and infarction (HCC); Bilateral carotid artery stenosis Start: 05-20-2022 End: 05-20-2022 Preprocedural examination done [place] [id number] Work Phone: Pre Anesthesia Start: 05-20-2022 End: 05-20-2022 Subsequent hospital visit by physician [facility] ([facility]) Radiology Comment on above: Attention to ileosto my (HCC) [Z43.2] Start: 05-18-2022 End: 07-07-2022 Preprocedural examination done [facility] 5 Work Phone: [facility] Work Phone: Start: 04-29-2022 Telephone encounter Liz wood APRN.FURNITURE INSPECTOR Work Phone: Radiology Comment on above: Patient Update Appointment Start: 04-24-2022 Telephone encounter Leandro Brown RN Work Phone: [facility] Comment on above: Home Care (Notificat ion of home health agency discharge.) Start: 04-23-2022 End: 04-23-2022 Home visit Doris Rivera RN Work Phone: [facility] Comment on above: SN AGENCY DC W VISIT Start: 04-22-2022 End: 04-22-2022 Office outpatient visit 10 minutes Katy Faust MD Work Phone: [facility] [place] Comment on above: Iron deficiency anem ia, unspecified iron deficiency anemia type (Primary Dx); 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); History of hepatitis B; History of anemia; Status post coronary artery bypass graft; Dyslipidemia Start: 04-22-2022 End: 04-22-2022 Home visit Estefany Stern PT Work Phone: [facility] Comment on above: PT DISC DC W VISIT Start: 04-21-2022 End: 04-21-2022 Home visit Isela Acharya TRUCK RENTAL CLERK Work Phone: [facility] Comment on above: TRUCK RENTAL CLERK ROUTINE Start: 04-17-2022 End: 04-17-2022 Home visit Isela Patrizia TRUCK RENTAL CLERK Work Phone: [facility] Comment on above: TRUCK RENTAL CLERK ROUTINE CARE COORDINATION Start: 04-15-2022 End: 04-15-2022 Home visit Isela Acharya TRUCK RENTAL CLERK Work Phone: [facility] Comment on above: TRUCK RENTAL CLERK ROUTINE Start: 04-13-2022 Telephone encounter Terry Balderrama MD Work Phone: Vascular Medicine Comment on above: Patient Update Start: 04-13-2022 End: 04-13-2022 Home visit Britta Mantilla RN Work Phone: [facility] Comment on above: SN ROUTINE Start: 04-09-2022 End: 04-09-2022 Home visit Britta Mantilla RN Work Phone: [facility] Comment on above: SN ROUTINE Start: 04-08-2022 ambulatory Norm Parker APRN.FURNITURE INSPECTOR Work Phone: [facility] [place] Comment on above: Results Start: 04-08-2022 E-mail encounter fro m caregiver Norm Parker APRN.FURNITURE INSPECTOR Work Phone: [facility] Start: 04-07-2022 Telephone encounter Norm Calderon er ACADEMIC AFFAIRS MANAGER.FURNITURE INSPECTOR Work Phone: [facility] [place] Comment on above: Critical Results (/) Start: 04-07-2022 End: 04-07-2022 Home visit Isela Acharya TRUCK RENTAL CLERK Work Phone: [facility] Comment on above: TRUCK RENTAL CLERK ROUTINE Start: 04-06-2022 End: 04-06-2022 Patient encounter procedure Norm Parker ACADEMIC AFFAIRS MANAGER.FURNITURE INSPECTOR Work Phone: [facility] [place] Comment on above: Rectal malignant gila plasm (HCC) (Primary Dx); Malignant neoplasm of colon, unspecified part of colon (HCC); 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); Bilateral pulmonary embolism (HCC); Blood loss; Anemia, unspecified type; Hyperlipidemia, unspecified hyperlipidemia type; Special screening examination for viral disease; Encounter to establish care; Encounter for therapeutic drug monitoring Start: 04-06-2022 End: 04-06-2022 Home visit Britta Mantilla RN Work Phone: [facility] Comment on above: SN ROUTINE Start: 04-03-2022 End: 04-03-2022 Home visit Isela Acharya TRUCK RENTAL CLERK Work Phone: [facility] Comment on above: TRUCK RENTAL CLERK ROUTINE Start: 04-02-2022 Non-patient / Non-visit No [facility] Physician [facility] [facility] Start: 04-02-2022 End: 04-02-2022 Home visit Britta Mantilla RN Work Phone: [facility] Comment on above: SN ROUTINE Start: 04-02-2022 Non-patient / Non-visit No [facility] Physician [facility] Start: 04-02-2022 End: 04-02-2022 ambulatory No Primary Care Physician [facility] Work Phone: Start: 04-02-2022 End: 04-02-2022 Patient encounter procedure No Primary Care Physician [facility] Start: 03-31-2022 End: 03-31-2022 Home visit Isela Acharya TRUCK RENTAL CLERK Work Phone: [facility] Comment on above: TRUCK RENTAL CLERK ROUTINE Start: 03-31-2022 Telephone encounter I Dutch rangel MD Work Phone: Colorectal Surgery Comment on above: Yarn Conditioner - O ther Start: 03-30-2022 End: 03-30-2022 Home visit Britta Mantilla RN Work Phone: [facility] Comment on above: SN ROUTINE Start: 03-27-2022 End: 03-27-2022 Home visit Isela Acharya TRUCK RENTAL CLERK Work Phone: [facility] Comment on above: TRUCK RENTAL CLERK ROUTINE Start: 03-26-2022 Telephone encounter Doris Rivera RN Work Phone: [facility] Comment on above: Home Care [...] Home visit Doris Rivera RN Work Phone: [facility] Comment on above: SN ROUTINE Start: 03-25-2022 End: 03-25-2022 Home visit Isela Acharya TRUCK RENTAL CLERK Work Phone: [facility] Comment on above: TRUCK RENTAL CLERK ROUTINE Start: 03-24-2022 End: 03-24-2022 Home visit Britta Mantilla RN Work Phone: [facility] Comment on above: SN ROUTINE [...] 03-19-2022 End: 03-19-2022 Home visit Isela Acharya TRUCK RENTAL CLERK Work Phone: [facility] Comment on above: TRUCK RENTAL CLERK ROUTINE SN ROUTINE Start: 03-18-2022 End: 03-18-2022 Patient encounter procedure Russ Monteiro MD Work Phone: [facility] [place] Comment on above: Anemia, unspecified type (Primary Dx); Pulmonary embolism and infarction (HCC); Hypokalemia; 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); Generalized weakness Start: 03-15-2022 End: 03-15-2022 Home visit Britta Mantilla RN Work Phone: [facility] Comment on above: SN ROUTINE Start: 03-14-2022 Home visit Savanna Galan RN Work Phone: [facility] Comment on above: CARE COORDINATION Start: 03-12-2022 Telephone encounter Leandro Brown RN Work Phone: [facility] Comment on above: Home Care (Need for home care SN EVAL for ostomy teaching and care. ) Start: 03-12-2022 End: 03-12-2022 Home visit Estefany Stern PT Work Phone: [facility] Comment on above: PT NORRIS Start: 03-05-2022 Telephone encounter Leandro Brown RN Work Phone: [facility] Comment on above: Home Care (Notificat ion of hospitalization.) Start: 03-04-2022 Telephone encounter Tejal bhakta PLANT P[employer]ER Work Phone: [facility] Comment on above: Home Care (Pt confir mation call ) Start: 03-03-2022 Telephone encounter Holly fernandez PLANT PULLER Work Phone: [facility] Comment on above: Home Care ( to pinky spangler) Start: 03-03-2022 End: 03-06-2022 Home visit Leandro Cruz RN Work Phone: [facility] Comment on above: SN TRANSFER Start: 03-01-2022 End: 03-02-2022 Emergency department patient visit No Primary Care Physician [facility]Emergency [facility] Start: 03-01-2022 ambulatory Deborah Myerson RN NURSE NITRO MAN Comment on above: Chest Pain Start: 02-27-2022 End: 02-27-2022 Emergency department patient visit No Primary Care Physician [facility] Start: 02-26-2022 End: 02-26-2022 Home visit Estefany Stern PT Work Phone: [facility] Comment on above: PT EVAL Start: 02-26-2022 Non-patient / Non-visit No Nalini tovar [facility] Physician [facility] [facility] Start: 02-25-2022 End: 02-25-2022 Home visit Jovanna Heaton RN Work Phone: [facility] Comment on above: SN SOC Start: 02-11-2022 Telephone encounter Radha jackson Work Phone: [facility] Comment on above: Home Care (Confirmat ion Call ) Home Care (MD sebastien spangler ) Start: 2022 Telephone encounter Tejal bhakta LPN Work Phone: [facility] Comment on above: Erroneous encounter- disregard Start: 02-03-2022 Orders Only I Dutch Cheung MD Work Phone: Colorectal Surgery Comment on above: Rectal cancer (HCC) (Primary Dx) Start: 02-01-2022 ambulatory Robert Bullock APRN.FURNITURE INSPECTOR Work Phone: Critical Care Start: 02-01-2022 End: 02-01-2022 Emergency department patient visit No Primary Care Physician [facility]Emer[facility] Start: 01-30-2022 End: 01-30-2022 Home visit Leandro Cruz RN Work Phone: [facility] Comment on above: CARE COORDINATION SN SOC Start: 01-28-2022 Telephone encounter Radha jackson Work Phone: [facility] Comment on above: Home Care (Confirmat ion Call ) Start: 01-16-2022 Non-patient / Non-visit No Nalini tovar Care Physician [facility] Start: 01-16-2022 End: 01-16-2022 ambulatory No Primary Care Physician [facility] Work Phone: Start: 01-16-2022 End: 01-16-2022 Patient encounter procedure No Primary Care Physician [facility] Start: 01-13-2022 Telephone encounter Kristel Moreira PA-C Work Phone: Pre Anesthesia Comment on above: Pre-Op Update Start: 01-12-2022 Telephone encounter Calista Mixon RN Pre Anesthesia Comment on above: PACC Start: 01-09-2022 End: 01-09-2022 Patient encounter procedure No Primary Care Physician [facility] [facility] Start: 01-07-2022 End: 01-07-2022 Orders Only Eric Hernandez MD Work Phone: Cardiology Comment on above: Pre-operative cleara nce (Primary Dx) Pre-op evaluation (P rimary Dx); Atherosclerosis of coronary artery bypass graft of [place] heart without angina pectoris; Bilateral carotid artery [...] patient Marisela Rome MD, MD Work Phone: [facility] [employer] Start: 07-22-2021 ambulatory Alexia edgar APRN.FURNITURE INSPECTOR Work Phone: Hematology/Oncology Comment on above: MRI and visit with Scott Ambrocio Start: 07-21-2021 ambulatory Marisela Rome MD Work Phone: Radiation Oncology Comment on above: Patient Education Start: 07-21-2021 Patient encounter procedure Marisela Rome MD, MD Work Phone: [facility] [employer] Start: 07-21-2021 Radiation Oncology Note Avril Rome MD Work Phone: Radiation Oncology Comment on above: Completion Note Start: 07-18-2021 End: 07-18-2021 ambulatory Alexia Rao APRN.FURNITURE INSPECTOR Work Phone: Hematology/Oncology Comment on above: Rectal malignant gila plasm (HCC) (Primary Dx); Anal squamous cell carcinoma (HCC) Start: 07-18-2021 End: 07-18-2021 Patient encounter procedure Alexia Rao APRN.FURNITURE INSPECTOR Work Phone: [facility] Comment on above: Appointment Start: 07-18-2021 Telephone encounter Alexia antonio APRN.FURNITURE INSPECTOR Work Phone: Hematology/Oncology Comment on above: Future [...] Dx) Start: 07-07-2021 Telephone encounter Alexia antonio APRN.FURNITURE INSPECTOR Work Phone: Hematology/Oncology Comment on above: Orders Start: 07-07-2021 End: 07-07-2021 ambulatory Lab/[place] [facility] Work Phone: Hematology/Oncology Comment on above: Rectal malignant gila plasm (HCC) (Primary Dx); 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) Start: 07-04-2021 End: 07-04-2021 ambulatory Alexia Rao ACADEMIC AFFAIRS MANAGER.FURNITURE INSPECTOR Work Phone: Hematology/Oncology Comment on above: Rectal malignant gila plasm (HCC) (Primary Dx) Start: 07-04-2021 End: 07-04-2021 Patient encounter procedure Alexia Rao ACADEMIC AFFAIRS MANAGER.FURNITURE INSPECTOR Work Phone: [facility] Start: 07-01-2021 End: 07-01-2021 Specialty Pharmacy Josselyn Stanford [facility] Comment on above: SPP Oral Oncology/he matology - Medication Refill (Capecitabine x 2) Refill Request Anal squamous cell c arcinoma (HCC) (Primary Dx) Start: 06-30-2021 End: 06-30-2021 ambulatory Lab/[place] Work Phone: Hematology/Oncology Comment on above: [...] Start: 06-23-2021 End: 06-23-2021 ambulatory Lab/[place] [facility] Work Phone: Hematology/Oncology Comment on above: Rectal malignant gila plasm (HCC); Anal squamous cell carcinoma (HCC) Start: 06-18-2021 End: 06-18-2021 ambulatory Helen Lakhani DO Work Phone: Hematology/Oncology Comment on above: Rectal malignant gila plasm (HCC) (Primary Dx) Start: 06-18-2021 End: 06-18-2021 Patient encounter procedure Helen Lakhani DO Work Phone: [facility] Start: 06-17-2021 End: 06-17-2021 Patient encounter procedure Marisela Rome MD Work Phone: Radiation Oncology Comment on above: Anal squamous cell c arcinoma (HCC) (Primary Dx) Start: 06-17-2021 Telephone encounter Amelia Souza RN He matology/Oncology Comment on above: Yarn Conditioner - O ther (Follow-up ) Start: 06-16-2021 End: 06-16-2021 ambulatory Lab/[place] [facility] Work Phone: Hematology/Oncology Comment on above: [...] Start: 06-09-2021 End: 06-09-2021 [facility] Start: 06-06-2021 Telephone encounter Helen connelly DO Work Phone: Hematology/Oncology Comment on above: Follow Up Start: 06-06-2021 End: 06-06-2021 ambulatory Helen Lakhani DO Work Phone: Hematology/Oncology Comment on above: Rectal malignant gila plasm (HCC) (Primary Dx) Start: 06-06-2021 End: 06-06-2021 Patient encounter procedure Helen Lakhani DO Work Phone: [facility] Start: 06-04-2021 Orders Only Marisela Rome MD Work Phone: Radiation Oncology Comment on above: Prostate cancer (HCC ) (Primary Dx) Erroneous encounter- disregard Start: 06-03-2021 Refill Caty Bowens MD Work Phone: Hematology/Oncology Comment on above: Refill Request Start: 06-02-2021 ambulatory Milly George [facility] Start: 06-02-2021 End: 06-02-2021 Patient encounter procedure Milly George [facility] Comment on above: SPP Oral Oncology/he matology - Treatment Referral (Capecitabine 500mg) Rectal malignant gila plasm (HCC) (Primary Dx) Start: 06-02-2021 Radiation Oncology Note Avril Rome MD Work Phone: Radiation Oncology Comment on above: Simulation Note Treatment Planning Start: 05-30-2021 ambulatory Milly George [facility] Start: 05-30-2021 Patient encounter procedure Milly [...] procedure Caty Bowens MD Work Phone: [facility] Comment on above: Rectal malignant gila plasm (HCC) (Primary Dx); Anal squamous cell carcinoma (HCC) Start: 02-10-2021 Office outpatient vi sit 15 minutes No PCP None [facility] Work Phone: Start: 08-12-2020 Office outpatient ne w 45 minutes No PCP None NU[facility] Work Phone: Evaluation finding No PCP None [facility] Work Phone: Procedures Date Procedure Procedure [...] pelvis w/o & w/contrast material Alexia Rao APRN.FURNITURE INSPECTOR Work Phone: Start: 09-17-2021 Sigmoidoscopy flx dx [...] post coronary artery bypass graft Norm Parker ACADEMIC AFFAIRS MANAGER.FURNITURE INSPECTOR Work Phone: SARS-CoV-2 & FLU Ant igen (Rapid) No Primary Care Physician SARS-CoV-2 & FLU Ant igen (Rapid) No Primary Care Physician Tonsillectomy No PCP None Viral antigen assay No Prima ry Care Physician Viral antigen assay No Prima ry Care Physician Plan of Treatment Date Care Activity Detail Author Start: 06-04-2032 Colonoscopy COLONOSCOPY [facility] Start: 06-04-2032 COLORECTAL CANCER SCREENING COLORECTAL CANCER SCREENING [facility] Start: 06-04-2032 Screening for malign ant neoplasm of colon [facility] Start: 03-20-2031 Colonoscopy COLONOSCOPY [facility] Start: 03-20-2031 COLORECTAL CANCER SCREENING COLORECTAL CANCER SCREENING [facility] Start: 04-06-2027 Lipid 1996 panel - S chad or Plasma Lipid Screening [facility] Start: 04-06-2027 Lipid panel Lipid Screening [facility] Start: 04-06-2027 LIPID SCREEN LIPID SCREEN [facility] Start: 12-17-2026 DTaP/Tdap/Td Vaccine s (2 - Td or Tdap) DTaP/Tdap/Td Vaccines (2 - Td or Tdap) [facility] Start: 12-17-2026 Urine microalbumin profile [facility] Start: 12-10-2026 Screening for malign ant neoplasm of colon Sigmoidoscopy [facility] Start: 12-10-2026 SIGMOIDOSCOPY SIGMOIDOSCOPY [facility] Start: 09-21-2026 Diabetes Screening Diabetes Screenin g [facility] Start: 09-17-2026 SIGMOIDOSCOPY SIGMOIDOSCOPY [facility] Start: 11-11-2025 Diabetes Screening Diabetes Screenin g [facility] Start: 08-15-2025 Annual PCP Team [employer] isidra Disease Visit Annual PCP Team Chronic Disease Visit [facility] Start: 07-07-2025 DIABETES SCREEN DIABETES SCREEN [facility] Start: 07-05-2025 Annual PCP Team [employer] isidra Disease Visit Annual PCP Team Chronic Disease Visit [facility] Start: 05-31-2025 Annual PCP Team [employer] isidra Disease Visit Annual PCP Team Chronic Disease Visit [facility] Start: 05-20-2025 DIABETES SCREEN DIABETES SCREEN [facility] Start: 04-22-2025 DIABETES SCREEN DIABETES SCREEN [facility] Start: 04-06-2025 DIABETES SCREEN DIABETES SCREEN [facility] Start: 03-18-2025 DIABETES SCREEN DIABETES SCREEN [facility] Start: 03-10-2025 DIABETES SCREEN DIABETES SCREEN [facility] Start: 03-06-2025 DIABETES SCREEN DIABETES SCREEN [facility] Start: 03-04-2025 DIABETES SCREEN DIABETES SCREEN [facility] Start: 03-03-2025 DIABETES SCREEN DIABETES SCREEN [facility] Start: 02-11-2025 DIABETES SCREEN DIABETES SCREEN [facility] Start: 2025 DIABETES SCREEN DIABETES SCREEN [facility] Start: 2025 RSV Vaccine (1 - 1-d ose 75+ series) RSV Vaccine (1 - 1-dose 75+ series) [facility] Start: 02-04-2025 DIABETES SCREEN DIABETES SCREEN [facility] Start: 02-03-2025 DIABETES SCREEN DIABETES SCREEN [facility] Start: 01-27-2025 DIABETES SCREEN DIABETES SCREEN [facility] Start: 01-07-2025 DIABETES SCREEN DIABETES SCREEN [facility] Start: 01-03-2025 Annual PCP Team [employer] isidra Disease Visit Annual PCP Team Chronic Disease Visit [facility] Start: 01-03-2025 Covid-19 Vaccine ( season) Covid-19 Vaccine ( season) [facility] Comment on above: Postponed from 10/30 (Declined at this time) Start: 01-03-2025 RSV Vaccine (1 - Ris k 60-74 years 1-dose series) RSV Vaccine (1 - Risk 60-74 years 1-dose series) [facility] Comment on above: Postponed from 02/09 (Declined at this time) Start: 12-25-2024 End: 12-25-2024 Patient encounter procedure 12/25/2024 1:00 PM EDT Office Visit [facility] [address] [place] [address] Srinivasan Da Silva APRN.TECHNICIAN SUPPORT ENGINEER [address] [place], [place] [phone] pre op clearance appt per Dr. Siddiqui. surgery is 01/02/25. [facility] Comment on above: pre op clearance daisha t per Dr. Siddiqui. surgery is 01/02/25. Start: 11-29-2024 Annual PCP Team [employer] isidra Disease Visit Annual PCP Team Chronic Disease Visit [facility] Start: 11-29-2024 End: 11-29-2024 Evaluation of diagnostic study results [facility] Start: 10-30-2024 Influenza vaccination [facility] Start: 08-28-2024 Influenza vaccination Influenza Vacc ine (#1) [facility] Comment on above: Postponed from 10/30 (Declined at this time) Start: 07-31-2024 End: 07-31-2024 Nursing evaluation of patient and report 07/31/2024 8:15 AM EDT Nurse Visit Colorectal Surgery [address] [id number] Therapy, Stoma [address] [id number] stoma nurse, has an ulcer next to stoma Colorectal Surgery Comment on above: stoma nurse, has an ulcer next to stoma Start: 07-17-2024 End: 07-17-2024 Nursing evaluation of patient and report 07/17/2024 8:15 AM EDT Nurse Visit Colorectal Surgery [address] [phone] Therapy, Stoma [address] [place] [address] stoma nurse, has an ulcer next to stoma Colorectal Surgery Comment on above: stoma nurse, has an ulcer next to stoma Start: 07-14-2024 DIABETES SCREEN DIABETES SCREEN [facility] Start: 07-07-2024 DIABETES SCREEN DIABETES SCREEN [facility] Start: 07-06-2024 Patient referral [facility] Work Phone: Start: 07-05-2024 End: 07-05-2024 Patient encounter procedure 07/05/2024 8:00 AM EDT Office Visit [facility] [place] [address] [place], [place] [phone] Norm Parker APRN.FURNITURE INSPECTOR [address] [place] [address] ulcer near stoma [facility] Comment on above: ulcer near stoma Start: 06-30-2024 DIABETES SCREEN DI[facility]ETES SCREEN [facility] Start: 06-23-2024 DIABETES SCREEN [facility]CREEN [facility] Start: 06-16-2024 DIABET[facility]CRE[facility] Start: 06-09-2024 DIABETES SCREEN [facility] Start: 05-31-2024 End: 05-31-2024 Patient encounter procedure 05/31/2024 3:40 PM EDT Office Visit [facility] [place] [address] [place], [place] [phone] Katy Faust MD [address] [place] [address] Hospital follow up with patient update [facility] Comment on above: Hospital follow up w ith patient update Start: 04-30-2024 DIABETES SCREEN [facility] Start: 04-25-2024 [facility] Start: 04-21-2024 Patient referral [facility] Work Phone: Start: 04-12-2024 End: 04-12-2024 Clinical Support [facility] Start: 03-01-2024 Advance Directive Discussion Advance Directive Discussion [facility] Start: 01-04-2024 End: 01-04-2024 Patient encounter procedure 01/04/2024 2:40 PM EST Office Visit [facility] [place] [address] [place], [place] [phone] Norm Parker APRN.FURNITURE INSPECTOR [address] [place], [place] [phone] Pre op clearance [facility] Comment on above: Pre op clearance Start: 11-30-2023 End: 11-30-2023 Patient encounter procedure 11/30/2023 10:00 AM EDT Office Visit [facility] [place] [address] [place] [address] Norm Parker APRN.FURNITURE INSPECTOR [address] [place] [address] left shoulder pain [facility] Comment on above: left shoulder pain Start: 10-31-2023 Covid-19 Vaccine ( season) Covid-19 Vaccine ( season) [facility] Start: 10-31-2023 Covid-19 Vaccine () Covid-19 Vaccine () [facility] Start: 10-31-2023 Influenza vaccination [facility] Start: 09-30-2023 End: 09-30-2023 Admission to same [...] 5:50 PM EDT Appointment MRI [place] [address] [address] History of rectal cancer [Z85.048] MRI Q Comment on above: History of rectal ca ncer [Z85.048] Start: 09-22-2023 Subsequent hospital visit by physician 09/22/2023 5:19 PM EDT Hospital Encounter MRI [facility] [address] [address] History of rectal cancer [Z85.048] MRI Q Comment on above: History of rectal ca ncer [Z85.048] Start: 09-22-2023 End: 09-22-2023 Anesthesia consultation 09/22/2023 2:50 PM EDT PAT Pre Anesthesia [address] [place] [id number] [address], [address] [place] [phone] pre op Pre Anesthesia Comment on above: pre op Start: 08-03-2023 End: 11-02-2023 CBC panel - Blood by Automated count COMPLETE BLOOD COUNT Lab Routine History of rectal cancer Expected: 08/03/2023 (Approximate), Expires: 11/02/2023 [facility] Work Phone: Comment on above: Expected: 08/03/2023 (Approximate), Expires: 11/02/2023 Start: 08-03-2023 End: 11-02-2023 Comprehensive metabolic 2000 panel - Serum or Plasma COMPREHENSIVE METABOLIC PANEL Lab Routine History of rectal cancer Expected: 08/03/2023 (Approximate), Expires: 11/02/2023 [facility] Comment on above: Expected: 08/03/2023 (Approximate), Expires: 11/02/2023 Start: 08-03-2023 End: 11-02-2023 CONFIRM BLOOD TYPE CONFIRM BLOOD TYPE Blood Bank Routine History of rectal cancer Expected: 08/03/2023 (Approximate), Expires: 11/02/2023 [facility] Comment on above: Expected: 08/03/2023 (Approximate), Expires: 11/02/2023 Start: 08-03-2023 End: 11-02-2023 TYPE AND SCREEN,30 DAY TYPE AND SCREEN,30 DAY Blood Bank Routine History of rectal cancer Expected: 08/03/2023 (Approximate), Expires: 11/02/2023 [facility] Comment on above: Expected: 08/03/2023 (Approximate), Expires: 11/02/2023 Start: 07-28-2023 End: 07-28-2023 Follow-up encounter 07/28/2023 4:45 PM EDT [facility] Colorectal Surgery [address] [address] Ramiro Cheung MD [address] [place] [address] FOLLOW UP Colorectal Surgery Comment on above: FOLLOW UP Start: 07-22-2023 End: 07-22-2023 Patient encounter procedure 07/22/2023 3:00 PM EDT Office Visit Podiatry [address] [place], [place] [phone] Jerodmartha Kee [address] [place], [place] [address] Ingrown nail of great toe [L60.0] Podiatry Comment on above: Ingrown nail of grea t toe [L60.0] Start: 07-18-2023 ANNUAL PCP TEAM MANAGER [employer] ISIDRA DISEASE VISIT ANNUAL PCP TEAM CHRONIC DISEASE VISIT [facility] Start: 07-08-2023 ANNUAL PCP TEAM MANAGER COMMUNITY [employer]ELOP[employer] ISIDRA DISEASE VISIT ANNUAL PCP TEAM CHRONIC DISEASE VISIT [facility] Start: 07-08-[facility]23 [facility] Start: 06-11-2023 [facility] Start: 06-11-2023 CT of head without contrast Brain/Head without Contrast [facility] Start: 06-11-2023 CT Unspecified body region WO contrast [facility] Start: 05-05-2023 Patient referral [facility] Work Phone: Start: 04-22-2023 ANNUAL PCP TEAM MANAGER COMMUNITY DEVELOPMENT ISIDRA DISEASE VISIT ANNUAL PCP TEAM CHRONIC DISEASE VISIT [facility] Start: 04-22-2023 COVID-19 VACCINE (#1) COVID-19 VACCI NE (#1) [facility] Comment on above: Postponed from 08/10 (Declined at this time) Start: 04-22-2023 Pneumococcal Vaccine : 65+ (1 - PCV) Pneumococcal Vaccine: 65+ (1 - PCV) [facility] Comment on above: Postponed from 02/09 (Declined at this time) Start: 04-22-2023 Pneumococcal Vaccine : 65+ (1 of 1 - PCV) Pneumococcal Vaccine: 65+ (1 of 1 - PCV) [facility] Comment on above: Postponed from 02/09 (Declined at this time) Start: 04-22-2023 PNEUMOCOCCAL: 65+ (1 - PCV) PNEUMOCOCCAL: 65+ (1 - PCV) [facility] Comment on above: Postponed from 02/09 (Declined at this time) Postponed from 02/09 (Declined at this time) Start: 04-22-2023 SHINGRIX VACCINE (1 of 2) OLIVA GRIX VACCINE (1 of 2) [facility] Comment on above: Postponed from 02/09 (Declined at this time) Postponed from 02/09 (Declined at this time) Start: 04-07-2023 Influenza vaccination [facility] Comment on above: Postponed from 10/30 (Declined at this time) Start: 04-06-2023 ANNUAL PCP TEAM MANAGER COMMUNITY DEVELOPMENT ISIDRA DISEASE VISIT ANNUAL PCP TEAM CHRONIC DISEASE VISIT [facility] Start: 04-06-2023 Hepatitis B surface antibody level LDL CHOLESTEROL [facility] Start: 04-03-2023 BP CONTROLLED (<130/80) BP CONTROLLE D (<130/80) [facility] Start: 04-02-2023 BP CONTROLLED (<130/80) BP CONTROLLE D (<130/80) [facility] Start: 03-31-2023 BP CONTROLLED (<130/80) BP CONTROLLE D (<130/80) [facility] Start: 03-31-2023 End: 03-31-2023 Clinical Support [facility] Start: 03-27-2023 BP CONTROLLED (<130/80) BP CONTROLLE D (<130/80) [facility] Start: 03-25-2023 BP CONTROLLED (<130/80) BP CONTROLLE D (<130/80) [facility] Start: 03-23-2023 BP CONTROLLED (<130/80) BP CONTROLLE D (<130/80) [facility] Start: 03-19-2023 BP CONTROLLED (<130/80) BP CONTROLLE D (<130/80) [facility] Start: 03-18-2023 ANNUAL PCP TEAM MANAGER COMMUNITY DEVELOPMENT ISIDRA DISEASE VISIT ANNUAL PCP TEAM CHRONIC DISEASE VISIT [facility] Start: 03-18-2023 BP CONTROLLED (<130/80) BP CONTROLLE D (<130/80) [facility] Start: 03-12-2023 BP CONTROLLED (<130/80) BP CONTROLLE D (<130/80) [facility] Start: 03-01-2023 Advance Directive Discussion Advance Directive Discussion [facility] Start: 03-01-2023 Behavioral Health Screening Behavioral Health Screening [facility] Start: 03-01-2023 Depression Assessment Depression Ass essment [facility] Start: 01-30-2023 BP CONTROLLED (<130/80) BP CONTROLLE D (<130/80) [facility] Start: 10-30-2022 Covid-19 Vaccine () Covid-19 Vaccine () [facility] Start: 10-30-2022 Influenza vaccination [facility] Start: 10-15-2022 End: 10-02-2023 US LEG VEIN DVT UNL VAS LAB US LEG VEIN DVT UNL VAS LAB Vascular Lab Routine Deep vein thrombosis (DVT) of both lower extremities, unspecified chronicity, unspecified vein (HCC) Localized edema Expected: 10/15/2022 (Approximate), Expires: 10/02/2023 [facility] Work Phone: Comment on above: Expected: 10/15/2022 (Approximate), Expires: 10/02/2023 Start: 10-14-2022 End: 10-30-2023 US DVT LOWER BILATERAL US DVT LOWER BILATERAL Radiology Routine Deep vein thrombosis (DVT) of both lower extremities, unspecified chronicity, unspecified vein (HCC) 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) Expected: 10/14/2022 (Approximate), Expires: 10/30/2023 [facility] Work Phone: Comment on above: Expected: 10/14/2022 (Approximate), Expires: 10/30/2023 Start: 08-28-2022 Influenza vaccination INFLUENZA (#1) [facility] Comment on above: Postponed from 10/30 (Declined at this time) Start: 07-04-2022 BP CONTROLLED (<130/80) BP CONTROLLE D (<130/80) [facility] Start: 06-16-2022 Adult depression screening assessment DEPRESSION SCREENING [facility] Start: 05-18-2022 End: 07-18-2022 CONFIRM BLOOD TYPE CONFIRM BLOOD TYPE Blood Bank Routine Pre-op evaluation Expected: 05/18/2022, Expires: 07/18/2022 [facility] Work Phone: Comment on above: Expected: 05/18/2022 , Expires: 07/18/2022 Start: 05-18-2022 End: 07-18-2022 TYPE AND SCREEN,30 DAY TYPE AND SCREEN,30 DAY Blood Bank Routine Pre-op evaluation Expected: 05/18/2022, Expires: 07/18/2022 [facility] Work Phone: Comment on above: Expected: 05/18/2022 , Expires: 07/18/2022 Start: 04-22-2022 End: 06-22-2022 Basic metabolic 2000 panel - Serum or Plasma BASIC METABOLIC PNL Lab Routine Encounter for therapeutic drug monitoring Expected: 04/22/2022, Expires: 06/22/2022 [facility] Work Phone: Comment on above: Expected: 04/22/2022 , Expires: 06/22/2022 Start: 04-06-2022 End: 06-06-2022 Comprehensive metabolic 2000 panel - Serum or Plasma [facility] Work Phone: Comment on above: Expected: 04/06/2022 , Expires: 06/06/2022 Start: 04-06-2022 End: 06-06-2022 Hepatitis C virus Ab [Presence] in Serum [facility] Work Phone: Comment on above: Expected: 04/06/2022 , Expires: 06/06/2022 Start: 04-06-2022 End: 06-06-2022 Iron and Iron binding capacity panel - Serum or Plasma [facility] Work Phone: Comment on above: Expected: 04/06/2022 , Expires: 06/06/2022 Start: 04-06-2022 End: 06-06-2022 Lipid 1996 panel - Serum or Plasma [facility] Work Phone: Comment on above: Expected: 04/06/2022 , Expires: 06/06/2022 Start: 03-01-2022 [facility] Start: 03-01-2022 ADVANCE DIRECTIVE DISCUSSION ADVANCE DIRECTIVE DISCUSSION [facility] Start: 03-01-2022 DEPRESSION ASSESSMENT DEPRESSION ASS ESSMENT [facility] Start: 2022 FUV, Provider: Gisela Genao, Status: Pen, Time: 9:45 AM FUV, Provider: Gisela Genao, Status: Pen, Time: 9:45 AM [facility] Work Phone: Start: 2022 DUALRISSA, Provider: Thais Arroyo, Status: Pen, Time: 9:00 AM DUALRISSA, Provider: Thais Arroyo, Status: Pen, Time: 9:00 AM [facility] Work Phone: Start: 02-01-2022 Leukocyte reduced re d blood cells [facility] Work Phone: Start: 02-01-2022 [facility] Work Phone: Start: 02-01-2022 Administration of bl ood product [facility] Start: 02-01-2022 Transfusion of red b lood cells [facility] Start: 02-01-2022 Blood culture [facility] Work Phone: Start: 02-01-2022 Blood culture [facility] Work Phone: Start: 10-30-2021 Influenza vaccination [facility] Start: 07-09-2021 End: 09-08-2021 Urinalysis complete panel - Urine [facility] Work Phone: Comment on above: Expected: 07/09/2021 , Expires: 09/08/2021 Start: 06-17-2021 End: 08-17-2021 Bacteria identified in Urine by Culture URINE CULTURE Microbiology Routine Rectal malignant neoplasm (HCC) Dysuria Expected: 06/17/2021, Expires: 08/17/2021 [facility] Work Phone: Comment on above: Expected: 06/17/2021 , Expires: 08/17/2021 Start: 06-17-2021 End: 08-17-2021 Urinalysis complete panel - Urine URINALYSIS, WITH MICROSCOPIC Lab Routine Rectal malignant neoplasm (HCC) Dysuria Expected: 06/17/2021, Expires: 08/17/2021 [facility] Work Phone: Comment on above: Expected: 06/17/2021 , Expires: 08/17/2021 Start: 06-06-2021 End: 08-06-2021 Carcinoembryonic Ag [Mass/volume] in Serum or Plasma CEA BLD Lab Routine Rectal malignant neoplasm (HCC) Expected: 06/06/2021, Expires: 08/06/2021 [facility] Work Phone: Comment on above: Expected: 06/06/2021 , Expires: 08/06/2021 Start: 06-06-2021 End: 08-06-2021 CBC W Auto Differential panel - Blood CBC + DIFF Lab Routine Rectal malignant neoplasm (HCC) Expected: 06/06/2021, Expires: 08/06/2021 [facility] Work Phone: Comment on above: Expected: 06/06/2021 , Expires: 08/06/2021 Start: 06-06-2021 End: 08-06-2021 Comprehensive metabolic 2000 panel - Serum or Plasma COMP METABOLIC PANEL Lab Routine Rectal malignant neoplasm (HCC) Expected: 06/06/2021, Expires: 08/06/2021 [facility] Work Phone: Comment on above: Expected: 06/06/2021 , Expires: 08/06/2021 Start: 06-04-2021 End: 08-04-2021 Prostate specific Ag [Mass/volume] in Serum or Plasma [facility] Work Phone: Comment on above: Expected: 06/04/2021 , Expires: 08/04/2021 Start: 05-29-2021 End: 07-29-2021 DPYD GENOTYPING [facility] [facility] Work Phone: Comment on above: Expected: 05/29/2021 , Expires: 07/29/2021 Start: 03-01-2021 ADVANCE DIRECTIVE DISCUSSION ADVANCE DIRECTIVE DISCUSSION [facility] Start: 01-01-2022 DEPRESSION ASSESSMENT DEPRESSION ASS ESSMENT [facility] Start: 02-10-2021 FUV, Provider: Gisela Genao, Status: Pen, Time: 2:30 PM FUV, Provider: Gisela Genao, Status: Pen, Time: 2:30 PM [facility] Phone: Start: 02-10-2021 DUALAUDIO, Provider: Ace Mason, Status: Pen, Time: 2:00 PM DUALAUDIO, Provider: Ace Mason, Status: Pen, Time: 2:00 PM [facility] 4[address] Work Phone: Start: 10-30-2020 Influenza vaccination INFLUENZA (#1) [facility] Start: 05-05-2017 Adult depression screening assessment DEPRESSION SCREENING [facility] Start: 2015 Pneumococcal Vaccine : 65+ (1 of 1 - PCV) Pneumococcal Vaccine: 65+ (1 of 1 - PCV) [facility] Start: 2015 Pneumococcal Vaccine : 65+ Years (1 - PCV) Pneumococcal Vaccine: 65+ Years (1 - PCV) [facility] Start: 2015 Pneumococcal Vaccine : 65+ Years (1 of 1 - PCV) Pneumococcal Vaccine: 65+ Years (1 of 1 - PCV) [facility] Start: 2015 PNEUMOVAX AGE 65 AND OVER WITH 5YR LOOKBACK (#1) PNEUMOVAX AGE 65 AND OVER WITH 5YR LOOKBACK (#1) [facility] Start: 01-29-2015 Medicare Annual Well ness Visit Medicare Annual Wellness Visit [facility] Start: 2010 Hepatitis B Vaccines (1 of 3 - Risk 3-dose series) Hepatitis B Vaccines (1 of 3 - Risk 3-dose series) [facility] Start: 2010 RSV High Risk: (Elde rly (60+) or Population) (1 - Risk 60-74 years 1-dose series) RSV High Risk: (Elderly (60+) or Population) (1 - Risk 60-74 years 1-dose series) [facility] Start: 2010 RSV Immunization age d 60 or older (1 - 1-dose 60+ series) RSV Immunization aged 60 or older (1 - 1-dose 60+ series) [facility] Start: 2010 RSV Vaccine (1 - 1-d ose 60+ series) RSV Vaccine (1 - 1-dose 60+ series) [facility] Start: 2010 RSV Vaccine (1 - Ris k 60-74 years 1-dose series) RSV Vaccine (1 - Risk 60-74 years 1-dose series) [facility] Start: 02-10-2000 Pneumococcal vaccination Pneum ococcal Vaccine (1 of 1 - PCV) [facility] Start: 02-10-2000 Pneumococcal Vaccine : 50+ (1 of 1 - PCV) Pneumococcal Vaccine: 50+ (1 of 1 - PCV) [facility] Start: 02-10-2000 SHINGRIX VACCINE (1 of 2) OLIVA GRIX VACCINE (1 of 2) [facility] Start: 02-10-2000 Zoster Vaccines (1 of 2) Zoster Vacc gary (1 of 2) [facility] Start: 1995 COLOGUARD (FIT-DNA) COLOGUARD (FIT-D NA) [facility] Start: [address] COLONOGRAPHY [facility] Start: 1995 FECAL OCCULT BLOOD FECAL OCCULT BLOO D [facility] Start: 1995 Screening for malign ant neoplasm of colon [facility] Start: 1995 SIGMOIDOSCOPY SIGMOIDOSCOPY [facility] Start: 1985 LIPID SCREEN LIPID SCREEN [facility] Start: 1969 Hepatitis A Vaccines (1 of 2 - Risk 2-dose series) Hepatitis A Vaccines (1 of 2 - Risk 2-dose series) [facility] Start: 1969 SHINGRIX VACCINE (1 of 2) OLIVA GRIX VACCINE (1 of 2) [facility] Start: 1969 Urine microalbumin profile DTAP,TDAP,TD (1 - Tdap) [facility] Start: 02-10-1968 ANNUAL PCP TEAM MANAGER COMMUNITY DEVELOPMENT ISIDRA DISEASE VISIT ANNUAL PCP TEAM CHRONIC DISEASE VISIT [facility] Start: 02-10-1968 Anxiety Screening Anxiety Screening [facility] Start: 02-10-1968 BP CONTROLLED (<130/80) BP CONTROLLE D (<130/80) [facility] Start: 02-10-1968 Depression Screening Depression Scre ening [facility] Start: 02-10-1968 Diabetes mellitus screening Diabetes Screening [facility] Start: 02-10-1968 Hepatitis B surface antibody level LDL CHOLESTEROL [facility] Start: 02-10-1968 HEPATITIS C SCREENING HEPATITIS C SC NENA [facility] Start: 1962 COVID-19 VACCINE (1) COVID-19 VACCIN E (1) [facility] Start: 1962 Depression Screening Depression Scre [facility] Start: 02-10-1956 PNEUMOCOCCAL: 65+ (1 - PCV) PNEUMOCOCCAL: 65+ (1 - PCV) [facility] Start: 1955 COVID-19 VACCINE (#1) COVID-19 VACCI NE (#1) [facility] Start: 1950 COVID-19 VACCINE (#1) COVID-19 VACCI NE (#1) [facility] Start: 1950 ABDOMINAL AORTIC ANE URYSM SCREENING ABDOMINAL AORTIC ANEURYSM SCREENING [facility] Start: 1950 Abdominal aortic ane urysm screening Abdominal Aortic Aneurysm Screening [facility] Start: 1950 Lipid panel Lipid Panel [facility] Start: 1950 Medicare Annual Well ness (AWV) Medicare Annual Wellness (AWV) [facility] Start: 1950 Medicare Annual Well ness Visit Medicare Annual Wellness Visit (AWV) [facility] Start: 1950 Screening for malign ant neoplasm of colon [facility] Ankle brachial press ure index [facility] Work Phone: Anrct xm surg req an es general spi/edrl dx EXAM UNDER ANESTHESIA RECTAL History of rectal cancer [facility] Bacteria identified in Blood by Culture Blood Culture [facility] Work Phone: Blood culture [facility] Work Phone: End: 06-12-2022 CBC W Auto Differential panel - Blood CBC + DIFF Lab STAT Rectal malignant neoplasm (HCC) Anal squamous cell carcinoma (HCC) Once per week for 9 Occurrences starting 06/14/2021 until 06/12/2022 [facility] Work Phone: Comment on above: Once per week for 9 Occurrences starting 06/14/2021 until 06/12/2022 End: 06-12-2022 Comprehensive metabolic 2000 panel - Serum or Plasma COMP METABOLIC PANEL Lab STAT Rectal malignant neoplasm (HCC) Anal squamous cell carcinoma (HCC) Once per week for 9 Occurrences starting 06/14/2021 until 06/12/2022 [facility] Work Phone: Comment on above: Once per week for 9 Occurrences starting 06/14/2021 until 06/12/2022 CONFIRM BLOOD TYPE CONFIRM BLOOD TYPE Blood Bank Routine Pre-op evaluation 05/20/2022 11:00 AM EDT [facility] Work Phone: CT SIM PLANNING RADI ATION ONCOLOGY CT SIM PLANNING RADIATION ONCOLOGY Radiology Routine Rectal malignant neoplasm (HCC) Ordered: 06/04/2021 [facility] Work Phone: Comment on above: Ordered: 06/04/2021 End: 01-07-2023 ECG COMPLETE ECG COMPLETE ECG Routine Pre-operative clearance 1 Occurrences starting 01/07/2022 until 01/07/2023 [facility] Work Phone: Comment on above: 1 Occurrences starti ng 01/07/2022 until 01/07/2023 End: 08-02-2024 ECG COMPLETE ECG COMPLETE ECG Routine History of rectal cancer 1 Occurrences starting 08/03/2023 until 08/02/2024 [facility] Comment on above: 1 Occurrences starti ng 08/03/2023 until 08/02/2024 H&P for surgery H&P FOR SURGERY Procedures Routine History of rectal cancer Ordered: 08/03/2023 [facility] Comment on above: Ordered: 08/03/2023 End: 08-04-2023 INR in Platelet poor plasma by Coagulation assay INR (POC) Lab Routine Acute deep vein thrombosis (DVT) of proximal vein of left lower extremity (HCC) Once per month for 99 Occurrences starting 08/04/2022 until 08/04/2023 [facility] Work Phone: Comment on above: Once per month for 9 9 Occurrences starting 08/04/2022 until 08/04/2023 Insertion picc w/rs& i 5 yr/> IR INSERT PICC LINE >/= 5 YR Radiology Routine Rectal malignant neoplasm (HCC) Ordered: 06/06/2021 [facility] Work Phone: Comment on above: Ordered: 06/06/2021 IR IVC FILTER REMOVAL IR IVC TONO TER REMOVAL Radiology Routine S/P IVC filter Ordered: 11/03/2022 [facility] Work Phone: Comment on above: Ordered: 11/03/2022 End: 06-12-2022 Magnesium [Mass/volume] in Serum or Plasma MAGNESIUM BLD Lab STAT Rectal malignant neoplasm (HCC) Anal squamous cell carcinoma (HCC) Once per week for 9 Occurrences starting 06/14/2021 until 06/12/2022 [facility] Work Phone: Comment on above: Once per week for 9 Occurrences starting 06/14/2021 until 06/12/2022 End: 09-01-2024 MR Pelvis WO contrast MRI RECTUM WO/W IVCON Radiology Routine History of rectal cancer 1 Occurrences starting 08/03/2023 until 09/01/2024 [facility] Comment on above: 1 Occurrences starti ng 08/03/2023 until 09/01/2024 MR Pelvis WO contrast MRI RECTUM WO/W IVCON Radiology Routine History of rectal cancer 09/22/2023 7:36 PM EDT [facility] Work Phone: End: 08-17-2022 Mri pelvis w/o & w/contrast material MRI RECTUM WO/W IVCON Radiology Routine Rectal malignant neoplasm (HCC) Anal squamous cell carcinoma (HCC) 1 Occurrences starting 07/18/2021 until 08/17/2022 [facility] Work Phone: Comment on above: 1 Occurrences starti ng 07/18/2021 until 08/17/2022 Mri pelvis w/o & w/contrast material MRI RECTUM WO/W IVCON Radiology Routine Rectal malignant neoplasm (HCC) Anal squamous cell carcinoma (HCC) 09/17/2021 5:15 PM EDT [facility] Work Phone: End: 10-25-2022 Mri pelvis w/o & w/contrast material MRI RECTUM WO/W IVCON Radiology Routine Malignant neoplasm of rectum (HCC) 1 Occurrences starting 09/25/2021 until 10/25/2022 [facility] Work Phone: Comment on above: 1 Occurrences starti ng 09/25/2021 until 10/25/2022 Patient Education [facility] Work Phone: Patient referral [facility] Work Phone: End: 08-03-2023 PT panel - Platelet poor plasma by Coagulation assay PROTHROMBIN TIME/PT Lab STAT Acute deep vein thrombosis (DVT) of proximal vein of left lower extremity (HCC) Once per month for 99 Occurrences starting 08/04/2022 until 08/03/2023 [facility] Work Phone: Comment on above: Once per month for 9 9 Occurrences starting 08/04/2022 until 08/03/2023 REFER FOR ADMIT INTERVIEW REFER FOR ADMIT INTERVIEW Procedures Routine History of rectal cancer Ordered: 08/03/2023 [facility] Comment on above: Ordered: 08/03/2023 Sigmoidoscopy flx w/biopsy single/multiple SIGMOIDOSCOPY FLEXIBLE WITH BIOPSY History of rectal cancer [facility] SURGICAL PATHOLOGY SURGICAL PATH OLOGY Lab Routine Rectal cancer (HCC) Ordered: 12/10/2021 [facility] Work Phone: Comment on above: Ordered: 12/10/2021 TYPE AND SCREEN,30 DAY TYPE AND SCREEN,30 DAY Blood Bank Routine Pre-op evaluation 05/20/2022 10:51 AM EDT [facility] Work Phone: US Carotid arteries [facility] Work Phone: End: 11-04-2023 US CAROTID ARTERIES [facility] US CAROTID ARTERIES [facility] Vascular Lab Routine Bruit of right carotid artery 1 Occurrences starting 11/03/2022 until 11/04/2023 [facility] Work Phone: Comment on above: 1 Occurrences starti ng 11/03/2022 until 11/04/2023 End: 05-21-2023 US LEG VEIN DVT [facility] US LEG VEIN DVT [facility] Vascular Lab Routine Personal history of DVT (deep vein thrombosis) Anticoagulation management encounter History of pulmonary embolism 1 Occurrences starting 05/20/2022 until 05/21/2023 [facility] Work Phone: Comment on above: 1 Occurrences starti ng 05/20/2022 until 05/21/2023 End: 11-04-2023 US LEG VEIN DVT [facility] US LEG VEIN DVT [facility] Vascular Lab Routine 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) 1 Occurrences starting 11/03/2022 until 11/04/2023 [facility] Work Phone: Comment on above: 1 Occurrences starti ng 11/03/2022 until 11/04/2023 End: 07-10-2024 XR Shoulder - left 3 Views XR SHOULDER GENERAL 3V OR MORE AP/TRUE AP/OTHER LEFT Radiology Routine Pain in left arm 1 Occurrences starting 06/11/2023 until 07/10/2024 [facility] Work Phone: Comment on above: 1 Occurrences starti ng 06/11/2023 until 07/10/2024 XR Shoulder - left 3 Views XR SHOULDER GENERAL 3V OR MORE AP/TRUE AP/OTHER LEFT Radiology Routine Pain in left arm 06/14/2023 8:53 AM EDT [facility] Work Phone: [facility] Immunizations Immunization Date Immunization Notes Care Provider Sudhakar melton 12-17-2016 tetanus toxoid, redu rocky diphtheria toxoid, and acellular pertussis vaccine, adsorbed No PCP None [facility] Payers Date Payer Category Payer Self-pay [id number] 2015 Medicare MEDICARE MEDICAR E A AND B [id number] 2015-Present [phone] [address] [address] [place] [address] Medicare [id number] 2015 Medicare [id number]. [id number] 2015 Medicare [id number] 2012 Private Health Insurance BRYAN JORDAN PPO [id number] 2012-Present [phone] [address] [place] [address] [facility] [id number]. 2.7.3.933663.315 2005 Managed Care (Private) [facility] SANTOS [facility] PLAN [id number]. [id number] 2005 Private Health Insurance [id number] .840.410259.1.13.159. 2.7.3.293576.315 2005 Private Health Insurance [id number] 1950 Unknown [id number] 2.0.1.989672.3.579. 2.1245 1950 Unknown [id number] 2.840.1.725973.3.579. 2.1243 Unknown Unknown VA AUTH REQUIR ED SEE NOTE [id number] Unknown [id number] 2.16840.1.352433.3.579. 2.462 Unknown [id number] 2.840.1.875523.3.579. 2.462 Unknown [id number] 2.16840.1.828428.3.579. 2.462 Unknown [id number] 2.16840.1.039517.3.579. 2.462 Unknown [id number] 2.16840.1.738042.3.579. 2.462 Unknown [id number] 2.16840.1.739548.3.579. 2.462 Unknown [id number] 2.16840.1.870263.3.579. 2.462 Unknown [id number] 2.16840.1.368635.3.579. 2.462 Unknown [id number] 2.16840.1.523287.3.579. 2.462 Unknown [id number] 2.16.840.1.004968.3.579. 2.462 Unknown [id number] 2.16.840.1.919174.3.579. 2.462 Unknown [id number] 2.16.840.1.815602.3.579. 2.462 Unknown [id number] 2.16.840.1.002876.3.579. 2.462 Unknown [id number] 2.16.840.1.274672.3.579. 2.462 Unknown [id number] 2.16.840.1.558194.3.579. 2.462 Unknown [id number] 2.840.1.209214.3.579. 2.462 Unknown [id number] 2.16840.1.605527.3.579. 2.462 Unknown [id number] 2.840.1.174211.3.579. 2.462 Unknown [id number] 2.840.1.788750.3.579. 2.462 Unknown [id number] 2.840.1.349085.3.579. 2.462 Unknown [id number] 2.840.1.149932.3.579. 2.462 Unknown [id number] 2.840.1.679277.3.579. 2.462 Unknown [id number] 2.840.1.163869.3.579. 2.462 Unknown [id number] 2.16840.1.192960.3.579. 2.462 Unknown [id number] 2.16.840.1.319147.3.579. 2.462 Unknown [id number] 2.16840.1.026764.3.579. 2.462 Unknown [id number] 2.16.840.1.514978.3.579. 2.462 Unknown [id number] 2.16840.1.525978.3.579. 2.462 Unknown [id number] 2.16.840.1.129591.3.579. 2.462 Unknown [id number] 2.16.840.1.852928.3.579. 2.462 Unknown [id number] 2.16.840.1.446682.3.579. 2.462 Unknown [id number] 2.16840.1.622001.3.579. 2.462 Unknown [id number] 2.16840.1.245043.3.579. 2.462 Unknown [id number] 2.16840.1.601635.3.579. 2.462 Social History Date Type Detail Facility Start: 02-11-2021 End: 07-01-2022 Former smoker Former smoker [facility] Start: 02-11-2021 End: 04-25-2024 Tobacco smoking status TXIS Ex-smoker [facility] Start: 01-28-1970 End: 01-29-2000 History of tobacco use Current smoker [facility] Start: 01-28-1970 End: 01-29-2000 History of tobacco use Cigarette Smoker [facility] Start: 05-29-2021 End: 07-14-2023 Alcohol intake Current drinker of alcohol (finding) [facility] Start: 03-20-2021 History SDOH Alcohol Comment rarely [facility] Start: 1950 Sex Assigned At Male C [facility] Start: 05-19-2021 End: 03-27-2024 Exposure to SARS-CoV-2 (event) Not sure [facility] Start: 06-04-2020 End: 07-08-2023 Tobacco smoking status TXIS Unknown if ever smoked [facility] Start: 01-18-2014 Occasional [facility] Start: 01-18-2014 None [facility] Start: 01-18-2014 Spouse/ Signif icant Other [facility] Start: 01-18-2014 Non-smoker [facility] Start: 02-11-2021 End: 11-30-2023 Tobacco use and exposure Smokeless tobacco non-user [facility] Start: 03-15-2022 History SDOH Housing Unable to Pay 3 [facility] Start: 05-20-2022 End: 07-05-2024 Alcohol intake Ex-drinker (finding) [facility] Start: 03-14-2022 End: 07-01-2022 Social connection and isolation panel [facility] Start: 07-15-2023 In a typical week, h ow many times do you talk on the telephone with family, friends, or neighbors? Patient refused [facility] Are you now , , , , never or living with a partner? Refused [facility] (I/We) worried wheth er (my/our) food would run out before (I/we) got money to buy more. DK or Refused [facility] Start: 03-14-2021 Gender identity Identifies as male gender (finding) [facility] Start: 03-14-2021 Sexual orientation Heterosexual (reagan wood) [facility] Has the My [employer] Database, or [employer] threatened to shut off services in your home in past 12Mo No [facility] Medical Equipment Procedure Code Equipment Code Equipment [...] approach, with fusion Collagen haemostatic agent, non-antimicrobial [id number] FDA Start: 01-18-2024 Discectomy, spine, cervical, anterior approach, with fusion Ligation clip, metallic ()[id number] FDA Start: 01-18-2024 Discectomy, spine, cervical, [...] FDA Start: 01-18-2024 Coil Concerto 5m m [place] Nylon 20cm Embolization Detachable Accepts .021in - [id number] Start: 02-01-2022 Device Angio-Sea l Vip 6fr .035in Collagen 70cm Closure Valuelink Guidewire - [id number] Start: 02-01-2022 System Option 6. 5fr 0-32mm 5fr 70cm Embolic Protection Filter Kit - [id number] Start: 02-16-2022 System Option 6. 5fr 0-32mm 5fr 70cm Embolic Protection Filter Kit - [id number] Start: 03-02-2022 Catheter Triever 24 24fr Thrombectomy 22-101 [id number] Start: 03-02-2022 Coil Concerto Latticefx 4mm [place] Nylon Fiber Polypropylene 10cm - [id number] Start: 02-01-2022 Coil Azur Cx Hydrocoil 2mm .018in Hydrogel 4cm Embolization Detachable Loop - [id number] Start: 02-01-2022 Coil Azur Cx Hydrocoil 3mm .018in Hydrogel 8cm Embolization Detachable Loop - [id number] Start: 02-01-2022 Coil Azur Cx Hydrocoil 2mm .018in Hydrogel 4cm Embolization Detachable Loop - [id number] Start: 02-01-2022 Coil Azur Cx Hydrocoil 2mm .018in Hydrogel 4cm Embolization Detachable Loop - [id number] Start: 02-01-2022 Coil Azur Cx Hydrocoil 2mm .018in Hydrogel 4cm Embolization Detachable Loop - [id number] Start: 02-01-2022 Coil Azur Cx Hydrocoil 2mm .018in Hydrogel 4cm Embolization Detachable Loop - [id number] Start: 02-01-2022 Coil Azur Cx Hydrocoil 3mm .018in Hydrogel 8cm Embolization Detachable Loop - [id number] Start: 02-01-2022 Coil Azur Cx Hydrocoil 3mm .018in Hydrogel 8cm Embolization Detachable Loop - [id number] Start: 02-01-2022 Coil Azur Cx Hydrocoil 3mm .018in Hydrogel 8cm Embolization Detachable Loop - [id number] Start: 02-01-2022 Coil Azur Cx Hydrocoil 3mm .018in Hydrogel 8cm Embolization Detachable Loop - [id number] Start: 02-01-2022 Peripheral arter y stent, bare-metal ()[id number] FDA Start: 07-08-2023 Functional Status Date Assessment Result Facility 03-10-2022 Are you deaf, or do you have serious difficulty hearing No 03/10/2022 9:19 AM Isaura Lakhani RN No [facility] 03-10-2022 Are you blind, or do you have serious difficulty seeing, even when wearing glasses No 03/10/2022 9:19 AM Isaura Lakhani RN No [facility] 03-10-2022 Do you have serious difficulty walking or climbing stairs No 03/10/2022 9:19 AM Isaura Lakhani, DERRICK No [facility] 03-10-2022 Do you have difficul ty dressing or bathing No 03/10/2022 9:19 AM Isaura Lakhani, DERRICK No [facility] 03-10-2022 Because of a physica l, mental, or emotional condition, do you have difficulty doing errands alone such as visiting a physician's office or shopping No 03/10/2022 9:19 AM Isaura Lakhani RN No [facility] Mental Status Date Assessment Result Facility 06-11-2023 Cognitive function Level Of Cons ciousness Awake;Alert;Inappropriate;R estless [facility] Work Phone: 03-10-2022 Because of a physica l, mental, or emotional condition, do you have serious difficulty concentrating, remembering, or making decisions No 03/10/2022 9:19 AM Isaura Lakhani, DERRICK No [facility] 03-01-2022 Cognitive function Level Of Cons ciousness Awake;Alert;Appropriate;Fol lows Commands [facility] Work Phone: 06-09-2021 Cognitive function Voice/Name [facility] Work Phone: Clinical Notes 07-16-2020 to 01-02-2025 Note Date & Type Note Facility 01-02-2025 Note [facility] Medical Records Department [address] [place] [address] History Physical Exam 01/02/25 1153 MR#: [id number] Acct: [id number] Name: JAI LUNA Rep #: [id number] : 1950 74 From: Howard Siddiqui MD PCP: Dr. Katy Faust MD Status:[facility] Location: [place] [address] History and Physical Date of Admission: 01/02/25 MR#: [id number] Acct: [id number] Name: JAI LUNA Rep #: [id number] : 1950 Provider: Dr. Howard Siddiqui MD Age/Sex: 74/M Location: [facility] [place] Status: Signed Intake Vital Signs 10/14/2507:58 11/29/2506:49 [...] 12/22/16) Essential hypertension Atherosclerotic heart disease of [place] coronary artery without angina pectoris Hypoacusis Dyslipidemia [...] to an u (more content not included)... [facility] 12-26-2024 Note HNO ID: [id number] Author: SRINIVASAN DA SILVA APRN.TECHNICIAN SUPPORT ENGINEER Service: ? Author Type: Nurse Specialist Type: [...] Scheduled for back surgery on 06/03 at [facility] by Dr. Siddiqui to address spinal stenosis in the lower spine. - Has seen [facility] for pre-surgery evaluation. He has [...] lumbar spine surgery scheduled on the at [facility] with Dr. Siddiqui. - No active infection, [...] perspective. CBC and CMP was completed at [facility] on December 20. - Advised to call Dr. Siddiqui's office the day before surgery to confirm surgery time if he does not receive a call with his surgery time. 2. Spinal stenosis of lumbar region with neurogenic claudication (M48.062) - Chronic lumbar spinal stenosis with neurogenic claudication affecting left leg; surgery planned to address this. 3. Coronary artery disease involving [place] coronary artery of [place] heart without angina pectoris (I25.10) 4. 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 S/P coronary artery stent placement (Z95.5) 6. History of pulmonary embolism (Z86.711) - Cardiology evaluation completed prior to surgery; instructed to stop aspirin and Plavix as per cardiology recommendations. 7. History of rectal cancer (Z85.048) 8. Presence o (more content not included)... [facility] 11-29-[address] [facility] 08-23-2024 Evaluation note Diagnosis Onset Date Resolution [...] November 29 10:38am Atherosclerotic heart disease of [place] coronary artery without angina pectoris chronic November 29 10:38am Dyslipidemia chronic November 29, 2024 10:38am Essential hypertension chronic Oc tob2024 10:38am Peripheral vascular disease chronic November 29 10:38am [employer] [facility] Work Phone: 1(408) 185-474906-17-2025 NoteHNO ID: [id number] Author: NORM PARKER APRN.FURNITURE INSPECTOR Service: ? 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 Appearanc (more content not included)...[facility]06-17-[facility] History of Present illness Narrative* Norm Parker APRN.FURNITURE INSPECTOR - 08/15/2024 3:27 PM EDT Images from [...] ([facility]) - 07/21/2022 Pulmonary Embolism and Infarction ([facility]) - 03/02/2022 Pulmonary Embolism ([facility]) - 02/13/2022 Hypokalemia - 02/10/2022 Urinary Retention - [address] ([facility]) - 01/28/2022 Rectal Cancer ([facility]) - 01/27/2022 Rectal Malignant Neoplasm ([facility]) - 05/29/2021 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 Norm Parker APRN-CHELSIE documented in this encounterHighland [facility]06-10-2025 Telephone encounter Note * Telephone Encounter - Cony Raygoza RN - 08/08/2024 2:34 PM EDT Patient calls to check on forms being sent to [employer]. Patient reports that he spoke to them today and they have not received the forms for ostomy pouches. Patient reports that he is down to two pouches and will need them very soon. Patient requesting call back at [phone]. Please review and advise, Cony Raygoza RN [facility]06-10-2025 Miscellaneous Notes* Telephone Encounter - Cony Raygoza RN - 08/08/2024 2:34 PM EDT Patient calls to check on forms being sent to [employer]. Patient reports that he spoke to them today and they have not received the forms for ostomy pouches. Patient reports that he is down to two pouches and will need them very soon. Patient requesting call back at [phone]. Please review and advise, Cony Raygoza RN documented in this encounterHighland District Hospital06-02-2025 NoteHNO ID: [id number] Author: LEONARDO VILLAREAL RN Service: ? Author [...] 45 minutes SCOTTIE Robbins RN CWOCN [facility] nursing pager [phone] (M-F 7a-4p, Sat, Sun, Holiday 7a-3p)[facility]06-02-2025 History of Present illness Narrative* Leonardo Villareal [...] 45 minutes SCOTTIE Robbins RN CWOCN [facility] nursing pager [phone] (M-F 7a-4p, Sat, Sun, Holiday 7a-3p) documented in this encounterHighland District Hospital05-20-2025 NoteHNO ID: [id number] Author: PRAVEENA DURAN RN Service: ? Author Type: Registered Nurse Type: Progress Notes Filed: 07/18/2024 12:41 Note Text: [place] [address] Patient: Jai Luna Patient Address: [address] [place] [address] Preferred Gender: male Date of : 1950 Type of Stoma: Loop Ileostomy Diagnosis: Ileostomy Status Z93.2 OSTOMY SUPPLY ORDER FORM Pouch: ConvaTec: 1 ?" Natura + Drainable pouch, Transparent #[id number] 30 day use - 2 Boxes Wafer: ConvaTec: Hailey-Fit Natura 1 3/4" Flat Durahesive # [id number] 30 day use - 2 Boxes Moldable Ring: Sharri CeraRing Regular # [id number] 30 day use - 2 Boxes Refills: 11 Attending Physician: Dr. Cheung For immediate authorization, please contact the physician?s office. SIGNATURE: Praveena Duran RN PATIENT NAME: Jai Luna DATE: July 18, 2024 TIME: 12:38 PM CONTACT #: [phone] Note HNO ID: [id number] Author: PRAVEENA DURAN RN Service: ? Author Type: Registered Nurse Type: Progress Notes Filed: 07/18/2024 12:44 Note Text: WO Nursing Consult Topic: WOC Consultation Note Outcome: Pt to A30 for appointment with [facility] Nursing. He has an established ileostomy for several years. He is here today with complaints of peristomal ulcer and pain. We discussed switching from a flat to a convex pouching system. Pt agreed with this. He has an established relationship with [employer] for supplies. If he likes the new pouch he can order it from [employer]. I provided him with x4 sets of [...] hour SCOTTIE Hoffman, RN, CWOCN For non-emergent [facility] Nursing patient care needs - Please place a consult via Epic under "ostomy". WO Nurse Available Hours: M-F: [phone]; Weekends AND Holidays: [phone] For emergent [facility] Nursing patient care needs - Page #[phone], during available hours only.[facility]05-19-2025 History of Present illness Narrative* Praveena Duran, [...] this. He has an established relationship with [employer] for supplies. If he likes the new pouch he can order it from [employer]. I provided him with x4 sets of [...] per day: varies Current pouching system: one-piece [place] Premier convex drainable pouch. Stoma paste. Current wearing time: 2 days- seal was intact but concern is for pressure injury related to use of convexity. Will switch to flat pouching system to see if this helps. Recommendations: Skin Care: applied Convatec Stomahesive powder followed by 3m Cavilon no-sting skin sealant Pouching System: 1 3/4" Con[employer]c SurFit Natura Durahesive flat cut-to-fit flange. [place] CearRing. Drainable pouch. Wear Time Goal: 3-4 days Time Increment: 1 hour SCOTTIE Hoffman, RN, CWOCN For non-emergent [facility] Nursing patient care needs - Please place a consult via [facility] under "ostomy". WO Nurse Available Hours: M-F: [phone]; Weekends & Holidays: [phone] For emergent [facility] Nursing patient care needs - Page #[phone], during available hours only. documented in this encounterHighland District Hospital05-08-2025 Evaluation note* Diagnosis Onset Date Resolution Status Admit Date Spinal stenosis of lumbar re gion with neurogenic claudication acute July 06, 2024 8:28am Status post cervical spinal fusion a cute July 06, 2024 8:28am [facility] Work Phone: 1(935) 341-200305-08-2025 Evaluation note* Diagnosis Onset Date Resolution Status [...] Thoracic radiculopathy acute Ju ly 2024 1:14pm [facility] Work Phone: [phone]) 436-868205-08-2025 Evaluation note* Diagnosis Onset Date Resolution Status [...] Thoracic radiculopathy acute [place] 2024 8:21am [facility] Work Phone: 1(937) 504-802205-07-2025 Telephone encounter Note* Telephone Encounter - Norm [...] interference with the stoma. Thank you, Norm [facility]05-07-2025 Miscellaneous Notes* Telephone Encounter - Norm Parker [...] stoma. Thank you, Norm documented in this encounterHighland District Hospital05-07-2025 History of Present illness Narrative* Norm Parker [...] of Proximal Vein of Left Lower Extremity ([facility]) - 07/21/2022 Pulmonary Embolism and Infarction ([facility]) - 03/02/2022 Pulmonary Embolism ([facility]) - 02/13/2022 Hypokalemia - 02/10/2022 Urinary Retention - [address] ([facility]) - 01/28/2022 Rectal Cancer ([facility]) - 01/27/2022 Rectal Malignant Neoplasm ([facility]) - 05/29/2021 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 JORDON Carrillo documented in this encounterHighland District Hospital05-07-2025 NoteHNO ID: [id number] Author: NORM PARKER APRN.CNP Service: ? 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 ASSESSMENT/PLAN: (more content not included)...[facility]05-05-2025 Telephone encounter Note* Telephone Encounter - Norm Parker APRN.CNP - 07/03/2024 11:20 AM EDT Noted, agree we can see him to decide which would be best, likely will need wound center but can see the area first to decide. [facility]05-05-2025 Miscellaneous Notes* Telephone Encounter - Norm Parker [...] to gerneral surgery or wound center at [facility]. Appointment made for Wednesday but aware routing to provider to review Celeste Maravilla MA documented in this encounterHighland District Hospital05-05-2025 Telephone encounter Note * Telephone Encounter - Celeste Maravilla MA - 07/03/2024 10:42 AM EDT Spoke to patient and he advised has had ulcer for 2-3 weeks not right by stoma. Was offered same day but just change colostomy bag and can not take off due to adhesive glue. Patient isnt sure if he needs referred to gerneral surgery or wound center at [facility]. Appointment made for Wednesday but aware routing to provider to review Celeste Maravilla MA [facility]04-02-2025 Instructions* Patient Instructions* Katy Faust MD - [...] flax seed as well. documented in this encounterHighland District Hospital04-02-2025 NoteHNO ID: [id number] Author: KATY FAUST MD Service: ? Author Type: Physician Type: Progress Notes Filed: 05/31/2024 17:06 Note Text: This note was created using VoltDBriter. Subjective Jai Luna is a 74 year [...] of seeking a second opinion from another media center specialist if symptoms persist or worsen. # [...] the date of the service which included [id number]-jpyn patient care, completing clinical documentation, obtaining and/or reviewing separately obtained history, performing a medically appropriate examination, counseling and educating the patient/family/caregiver, and ordering medications, tests, or procedures . Katy Faust MD The patient consented to the use of ambient Nibu software for draft documentation of the visit consistent with [facility]?s Notice of Privacy Practices. [facility]04-02-2025 History of Present illness Narrative* Katy Faust MD - 05/31/2024 4:30 PM EDT This note was created using VoltDBriter. Subjective Jai Luna is a 74 year [...] of seeking a second opinion from another media center specialist if symptoms persist or worsen. # [...] the date of the service which included code-zb-etcn patient care, completing clinical documentation, obtaining and/or reviewing separately obtained history, performing a medically appropriate examination, counseling and educating the patient/family/caregiver, and ordering medications, tests, or procedures . Katy Faust MD The patient consented to the use of meebee software for draft documentation of the visit consistent with [facility] s Notice of Privacy Practices. documented in this encounterHighland District Hospital02-21-2025 Evaluation note* Diagnosis Onset Date Resolution Status Admit Date Spinal stenosis of lumbar region with neurogenic claudication acute April 21, 2 025 12:23pm Status post cervical spinal fusion acute April 21, 025 12:23pm Spinal stenosis of lumbar region with neurogenic claudication acute July 06, 2024 8: 28am Status post cervical spinal fusion acute July 06, 2024 8: 28am [facility] Work Phone: 1(293) 703-629912-30-2024 Telephone encounter Note* Telephone Encounter - Alba Higginbotham MA - 02/28/2024 9:20 AM EST Nothing in Care Everywhere. [facility]12-30-2024 Miscellaneous Notes* Telephone Encounter - Alba Higginbotham MA - 02/28/2024 9:20 AM EST Nothing in Care Everywhere. * Telephone Encounter - Katy Faust MD - 02/27/2024 11:38 PM EST See MyChart reply documented in this encounterHighland District Hospital12-29-2024 Telephone encounter Note * Telephone Encounter - aKty Faust MD - 02/27/2024 11:38 PM EST See MyChart reply [facility]12-23-2024 NoteHNO ID: [id number] Author: ROBBIE CAM MA Service: ? Author Type: Cytogeneticist Type: Progress Notes Filed: 02/21/2024 08:31 Note Text: POPULATION HEALTH NAVIGATION OUTREACH Action/FYI Patient replied via wanting to schedule for flank pain, I sent info for nurse consumer insights specialist. Reason for Outreach Returned Call/MyChart Patient Contacted: Spoke to patient/parent/or legal guardian Patient identified by name and date of : Yes Returned call/MyChart actions taken: MyChart message sent Navigation Signature: Robbie Cam MA February 21, 2024 8:30 [facility]12-20-2024 NoteHNO ID: [id number] Author: ROBBIE CAM MA Service: ? Author Type: Cytogeneticist Type: Progress Notes Filed: 02/18/2024 10:29 Note [...] Robbie Cam MA February 18, 2024 10:16 [facility]12-20-2024 History of Present illness Narrative* Robbie Cam [...] 18, 2024 10:16 AM documented in this encounterHighland District Hospital12-20-2024 NotePatient Outreach (NETNAV) JAI LUNA ([id number]) 1950 M Date Time Provider Department 02/18/24 [...] flank pain, I sent info for nurse consumer insights specialist. Reason for Outreach Returned Call/MyChart Patient Contacted: [...] Date Reviewed: 01/04/2024 Reviewed by: Norm Parker APRN.FURNITURE INSPECTOR - Fully Assessed Reason for Visit: Population [...] 09/22/2023 Encounter Status:Closed by DORINA, ROBBIE on 02/18/24[facility] Telephone encounter Note* Telephone Encounter - Katy Faust MD - 02/14/2024 7:55 PM EST Noted. Katy Faust MD [facility]12-16-2024 Miscellaneous Notes* Telephone Encounter - Katy Faust [...] surgery in December [address]iddiqui [facility]. Advised patient to go to [facility] ER for evaluation. He said has no ride until his comes home, has one car. Patient said he would go to ER after comes home. documented in this encounterHighland District Hospital12-16-2024 Telephone encounter Note * Telephone Encounter - [...] surgery in December [address] Siddiqui [facility]. Advised patient to go to [facility] ER for evaluation. He said has no ride until his comes home, has one car. Patient said he would go to ER after comes home. [facility]11-[facility]24 [facility] Medical Records Department [address] [place] [address] History Physical Exam 01/18/24 0728 MR#: [id number] Acct: [id number] Name: JAI LUNA Rep #: [id number] : 1950 73 From: Howard Siddiqui MD PCP: Dr. Katy Faust MD [place] [facility] [place] [address] History and Physical Date of Admission: 01/18/24 MR#: [id number] Acct: [id number] Name: JAI LUNA Rep #: [id number] : 1950 Provider: Dr. Howard Siddiqui MD Age/Sex: 73/M Location: [facility] Status: Signed Intake Vital Signs 11/09/2409:35 Height [...] 12/22/16) Essential hypertension Atherosclerotic heart disease of [place] coronary artery without angina pectoris Hypoacusis Dyslipidemia [...] by me, Dr. Howard Siddiqui MD 01/11/24 0751. Part of today???s visit was documented by [...] leg. Patient states his (more content not included)...[facility]11-05-2024 NoteHNO ID: [id number] Author: NORM PARKER APRN.FURNITURE INSPECTOR Service: ? Author Type: Nurse Practitioner Type: [...] done on 01/18/[address] Siddiqui at [facility]. History of having anesthesia: Yes. Any reaction [...] recent sickness. No history of CVA or AL. Sees [facility], had a stress test yesterday. [...] Embolism - 09/22/2023 Pvd (Peripheral Vascular Disease) ([facility]) - 09/22/2023 History of Dvt (Deep Vein Thrombosis) - 09/22/2023 Acute Deep Vein Thrombosis (Dvt) of Proximal Vein of Left Lower Extremity ([facility]) - 07/21/2022 Pulmonary Embolism and Infarction ([facility]) - 03/02/2022 Pulmonary Embolism ([facility]) - 02/13/2022 Hypokalemia - 02/10/2022 Urinary Retention - [address] ([facility]) - 01/28/2022 Rectal Cancer ([facility]) - 01/27/2022 Rectal Malignant Neoplasm ([facility]) - 05/29/2021 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 Siddiqui at [facility]. History of having anesthesia: Yes. Any reaction [...] recent sickness. No history of CVA or AL. Sees [facility], had a stress test yesterday. [...] Embolism - 09/22/2023 Pvd (Peripheral Vascular Disease) ([facility]) - 09/22/2023 History of Dvt (Deep Vein Thrombosis) - 09/22/2023 Acute Deep Vein Thrombosis (Dvt) of Proximal Vein of Left Lower Extremity ([facility]) - 07/21/2022 Pulmonary Embolism and Infarction ([facility]) - 03/02/2022 Pulmonary Embolism ([facility]) - 02/13/2022 Hypokalemia - 02/10/2022 Urinary Retention - [address] ([facility]) - 01/28/2022 Rectal Cancer ([facility]) - 01/27/2022 Rectal Malignant Neoplasm ([facility]) - 05/29/2021 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 Siddiqui at [facility]. 2. Spinal stenosis in cervical region - [...] on chronic conditions and medications.. Norm Parker APRN-FURNITURE INSPECTOR documented in this encounterHighland District Hospital10-23-2024 Telephone encounter Note * Telephone Encounter - Don Feldman LPN - 12/22/2023 1:36 PM EDT Last appointment was 11/30/23. Pre-op is to be within 30 days of surgery date and so will have patient keep appointment. [facility]10-23-2024 Miscellaneous Notes* Telephone Encounter - Don Feldman [...] be faxing the form. documented in this encounterHighland District Hospital10-23-2024 Telephone encounter Note * Telephone Encounter - [...] Siddiqui is to be faxing the form. [facility]10-01-2024 History of Present illness Narrative* Norm Parker APRN.FURNITURE INSPECTOR - 11/30/2023 9:53 AM EDT Images from the original note were not included. SUBJECTIVE Jai Luna is a 73 year old male here today for acute concern. Chief Complaint Patient presents with: Pain (Shoulder Pain): left has been to PT at [facility] per Dr. Siddiqui but did not help. MRI is scheduled 12/09/23 through [facility] Jai Luna is a 73 year old male. He is an established patient of Katy Faust MD. He is here today acutely for concerns of left shoulder pain. Rated as 10/10 at times. Radiates down from theneck to arm. Described as a burning and throbbing, impacting sleep. He has done PT at [facility] with no improvement. Seeing Dr. Siddiqui with [facility] ortho/spine and is getting an MRI done [...] Embolism - 09/22/2023 Pvd (Peripheral Vascular Disease) ([facility]) - 09/22/2023 History of Dvt (Deep Vein Thrombosis) - 09/22/2023 Acute Deep Vein Thrombosis (Dvt) of Proximal Vein of Left Lower Extremity ([facility]) - 07/21/2022 Pulmonary Embolism and Infarction ([facility]) - 03/02/2022 Pulmonary Embolism ([facility]) - 02/13/2022 Hypokalemia - 02/10/2022 Urinary Retention - [address] ([facility]) - 01/28/2022 Rectal Cancer ([facility]) - 01/27/2022 Rectal Malignant Neoplasm ([facility]) - 05/29/2021 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 Norm Parker APRN-CHELSIE documented in this encounterHighland District Hospital09-30-2024 Telephone encounter Note * Telephone Encounter - Coral Charles RN - 11/29/2023 3:50 PM EDT Spoke with patient. Given message from provider's office. Patient verbalizes understanding. Appointment scheduled. Coral Charles RN [facility]09-30-2024 Miscellaneous Notes* Telephone Encounter - Coral Charles [...] not sleep.. PATIENT did physcial therapy at [facility] x 4 times with norelief. Patient sees spine doctor which recommended a MRI, scheduled for 12/09/23. Patient is requesting pain meds Patient uses [facility] please review and advise. Calista Rehman LPN documented in this encounterHighland District Hospital09-30-2024 Telephone encounter Note * Telephone Encounter - Norm Parker APRN.CNP - 11/29/2023 3:36 PM EDT He really needs to be seen for an appointment for pain medication because he is likely going to require something controlled for his pain. [facility]09-30-2024 Telephone encounter Note* Telephone Encounter - Calista Rehman LPN - 11/29/2023 2:50 PM EDT Patient is calling with left shoulder pain 10/10 pain scale. The pain radiates down from neck to arm, burning throbss and can not sleep.. PATIENT did physcial therapy at [facility] 4 times with ahmet. Patient sees spine doctor which recommended a MRI, scheduled for 12/09/23. Patient is requesting pain meds Patient uses [facility] please review and advise. Calista Rehman LPN [facility]09-10-2024 Telephone encounter Note* Telephone Encounter - Jenna Sevilla LPN - 11/09/2023 10:13 AM EDT Forms finally went through to fax number provided for [employer]. Patient updated. Jenna Sevilla LPN [facility]09-10-2024 Miscellaneous Notes* Telephone Encounter - Jenna Sevilla LPN - 11/09/2023 10:13 AM EDT Forms finally went through to fax number provided for [employer]. Patient updated. Jenna Sevilla LPN * Telephone Encounter - eJnna Sevilla LPN - 11/05/2023 4:44 PM EDT Refaxed the forms to [phone]. Have attempted to fax the forms to that same number several times and none have gone through. Jenna Sevilla LPN * Telephone Encounter - Cony Raygoza RN - 11/05/2023 3:59 PM EDT Patient calls to report that [facility] has not received any orders/forms at this time. Requesting they be faxed to [phone]. Faxed available order. No forms for this nurse to fax. Cony Raygoza RN * Telephone Encounter - Jenna Sevilla LPN - 10/27/2023 3:23 PM EDT Spoke to staff at [facility], they had faxed another form to us this am. Staff member aware our faxed not going through to them and no faxes received here at the clinic from them. Jenna Sevilla LPN * Telephone Encounter - Jenna Sevilla LPN - 10/27/2023 3:09 PM EDT Order was emailed to [place] due to faxes were not going through. [...] accordingly. See MyChart reply documented in this encounterHighland [facility]09-09-[facility]24 Telephone encounter Note * Telephone Encounter - Jenna Sevilla LPN - 11/08/2023 12:18 PM EDT Made a copy of the forms and placed in mail. Attempted again to fax to number provided, did not go through. Jenna Sevilla LPN [facility]09-09-2024 Miscellaneous Notes* Telephone Encounter - Jenna Sevilla LPN - 11/08/2023 12:18 PM EDT Made a copy of the forms and placed in mail. Attempted again to fax to number provided, did not go through. Jenna Sevilla LPN * Telephone Encounter - Whitney Blunt LPN - 10/28/2023 10:54 AM EDT Contacted [facility] again letting them know we have made several attempts to fax orders in the last couple weeks but faxes are not going through, fast busy. Telephone Directory Deliverer states other faxes are going through and there is not other number to fax to but she did give me a email address of [email or web address] to try. Documentation has been emailed. * Telephone Encounter - Katy Faust MD - 10/27/2023 7:59 PM EDT Let patient known when this issue of RXs getting to [place] has been taken care of documented in this encounterHighland District Hospital09-06-2024 Telephone encounter Note * Telephone Encounter - Jenna Sevilla LPN - 11/05/2023 4:44 PM EDT Refaxed the forms to [phone]. Have attempted to fax the forms to that same number several times and none have gone through. Jenna Sevilla LPN [facility]09-06-[facility] Telephone encounter Note* Telephone Encounter - Cony Raygoza RN - 11/05/2023 3:59 PM EDT Patient calls to report that [facility] has not received any orders/forms at this time. Requesting they be faxed to [phone]. Faxed available order. No forms for this nurse to fax. Cony Raygoza, RN [facility]08-29-2024 Telephone encounter Note* Telephone Encounter - Whitney Blunt LPN - 10/28/2023 10:54 AM EDT Contacted [facility] again letting them know we have made several attempts to fax orders in the last couple weeks but faxes are not going through, fast busy. Telephone Directory Deliverer states other faxes are going through and there is not other number to fax to but she did give me a email address of [email or web address] to try. Documentation has been emailed. [facility]08-28[facility] Telephone encounter Note* Telephone Encounter - Katy Faust MD - 10/27/2023 7:59 PM EDT Let patient known when this issue of RXs getting to [place] has been taken care of [facility]08[facility] Telephone encounter Note* Telephone Encounter - Jenna Sevilla LPN - 10/27/2023 3:23 PM EDT Spoke to staff at [facility], they had faxed another form to us this am. Staff member aware our faxed not going through to them and no faxes received here at the clinic from them. Jenna Sevilla LPN [facility]08-28-2024 Telephone encounter Note* Telephone Encounter - Jenna Sevilla LPN - 10/27/2023 3:09 PM EDT Order was emailed to [place] due to faxes were not going through. Jenna Sevilla LPN [facility]08-28[facility] Telephone encounter Note* Telephone Encounter - Fela Church LPN - 10/27/2023 2:23 PM EDT Checking to see if this has been faxed. If it is done please close encounter. Fela Church LPN [facility]08-23-2024 Telephone encounter Note* Telephone Encounter - Katy [...] above. Please process accordingly. See MyChart reply [facility]07-26-2024 Telephone encounter Note* Telephone Encounter - Shaneka Perez - 09/24/2023 10:51 AM EDTSummary: plavix DOS 09/30/2023 received and scanned into chart [facility] Work Phone: [phone] Miscellaneous Notes* Telephone Encounter - Shaneka Perez - 09/24/2023 10:51 AM EDTSummary: plavix DOS 09/30/2023 received and scanned into chart documented in this encounterHighland District Hospital07-24-2024 History of Present illness Narrative* Parvin Armstrong [...] 2023 TIME: 5:53 PM documented in this encounterHighland District Hospital07-24-2024 History and physical note * Linda Daley, NAVNEET.FURNITURE INSPECTOR - 09/22/2023 2:50 PM EDT Images from the original note were not included. [facility] HISTORY [...] artery 07/08/23. Completed by Dr. Reynolds at [facility] on Plavix and ASA. History of DVT [...] have a large neck STOP-Bang Score: 3 [id number] Score: Hypertension history: Yes Vascular disease history: Yes [id number] Score: ANESTHESIA FINDINGS: Intubation History: No history [...] clearance for Plavix faxed to Dr. Reynolds ([facility]) Patient s/p left arm angiogram, IVUS [...] He had an OV with Dr Muñiz ([facility]) on 07/14/23 for rectal bleeding and it [...] fevers. Neurological: No history of TIA's, stroke, TECHNICIAN SUPPORT ENGINEER tumor, impaired sensorium, hemiplegia, paraplegia orquadraplegia. No [...] chest pain, CHF, congenital heart defect, recent AL and murmur/valvular heart disease. GI: See HPI. [...] Coronary atherosclerosis of unspecified type of vessel, [place] or graft Coronary artery disease Diverticulosis of [...] Status PROSTATE SURGERY HX STRABISMUS RECESSION/RESCJ 1 [facility] Strabismus surgery TONSILLECTOMY HX TONSILLECTOMY PRIMARY/SECONDARY Tonsillectomy [...] 426 QTC Calculation (Bazett) 446 Calculated P [place] 2 Calculated R [place] 16 Calculated T [place] 35 Impression NORMAL SINUS RHYTHM COMPLETE RIGHT BUNDLE BRANCH BLOCK ABNORMAL ECG Recent Results (from the past 66581 hour(s)) ECHO Collection Time: 03/03/22 4:24 PM [...] 21, 2023 TIME: 9:05 PM PAGER/CONTACT #: [facility] History and physical note* Linda Daley APRN.CNP - 09/22/2023 2:50 PM EDT Images from the original note were not included. 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 Atherosclerosis [...] Follows with Vascular. PVD (peripheral vascular disease) ([facility]) Patient s/p left arm angiogram, IVUS aorta, subclavian/axillary, brachial, radial arteries angioplasty and stent of left subclavian artery 07/08/23. Completed by Dr. Reynolds at [facility] on Plavix and ASA. History of DVT [...] have a large neck STOP-Bang Score: 3 [id number] Score: Hypertension history: Yes Vascular disease history: Yes [id number] Score: ANESTHESIA FINDINGS: Intubation History: No history [...] clearance for Plavix faxed to Dr. Reynolds ([facility]) Patient s/p left arm angiogram, IVUS aorta, [...] He had an OV with Dr Muñiz ([facility]) on 07/14/23 for rectal bleeding and it [...] fevers. Neurological: No history of TIA's, stroke, TECHNICIAN SUPPORT ENGINEER tumor, impaired sensorium, hemiplegia, paraplegia orquadraplegia. No [...] chest pain, CHF, congenital heart defect, recent AL and murmur/valvular heart disease. GI: See HPI. [...] Coronary atherosclerosis of unspecified type of vessel, [place] or graft Coronary artery disease Diverticulosis of [...] Status PROSTATE SURGERY HX STRABISMUS RECESSION/RESCJ 1 [facility] Strabismus surgery TONSILLECTOMY HX TONSILLECTOMY PRIMARY/SECONDARY <AGE [...] 426 QTC Calculation (Bazett) 446 Calculated P [place] 2 Calculated R [place] 16 Calculated T [place] 35 Impression NORMAL SINUS RHYTHM COMPLETE RIGHT BUNDLE BRANCH BLOCK ABNORMAL ECG Recent Results (from the past 49582 hour(s)) ECHO Collection Time: 03/03/22 4:24 PM [...] 9:05 PM PAGER/CONTACT #: documented in this encounterHighland District Hospital07-24-2024 Instructions* Patient Instructions* Linda Daley APRN.CNP - 09/22/2023 1:53 PM EDT Images from the original note were not included. [facility] PATIENT PREOPERATIVE INSTRUCTIONS Ramiro Cheung MD has scheduled you for your procedure at this surgery center: [facility] [place] Scheduling Office: [phone] --[address] [place] [address]. Please read below carefully for your personalized [...] or other anticoagulants without consulting with your ophthalmologist or prescribing physician. - Stop Vitamin E, [...] Procedures: - YOU MUST HAVE A RESPONSIBLE CORSETS SALESPERSON TAKE YOU HOME. A HEALTH LEAD OR SENIOR TECH MANUFACTURING ENGINEERING CANNOT BE MADE A RESPONSIBLE CORSETS SALESPERSON. - We recommend that a responsible person [...] call the Wednesday before. Your surgeon s scheduler conveyor will tell you what time to call the office. - If you have not reached the departmental scheduler conveyor by 5 P.M., call [phone] after 5 P.M. the day before your surgery. Please be aware that emergency situations arise, which may delay or change your surgical time. If this happens, we will notify you as soon as possible and regret any inconvenience. If you already have an Advance Directive, please fax a copy to [phone] or email to for it to be [...] your chart that day. documented in this encounterHighland District Hospital07-24-2024 History and physical note * Ramiro Cheung [...] He had an OV with Dr Muñiz ([facility]) on 07/14/23 for rectal bleeding and it [...] 07/14/[address] Muñiz ([facility]) - Recommendation is to identify the source of your rectal bleeding - Follow-up with Urology to evaluate for a fistula connection to the urethra - Further surgical intervention is recommended to be pursued with Dr. Cheung or through the [facility] given the complexity of your case. Further work-up prior to surgery should be performed through the [facility] as any further surgical intervention would be [...] Data Reviewed: Tests & Documents Reviewed/ordered: [facility] I have independently interpreted: CT [...] mortality and/or complications of treatment plan: low [facility]07-[facility] History and physical note* Ramiro Cheung MD [...] He had an OV with Dr Muñiz ([facility]) on 07/14/23 for rectal bleeding and it [...] 07/14/[address] Muñiz ([facility] at [facility]) - Recommendation is to identify the source of your rectal bleeding - Follow-up with Urology to evaluate for a fistula connection to the urethra - Further surgical intervention is recommended to be pursued with Dr. Cheung or through the [facility] given the complexity of your case. Further work-up prior to surgery should be performed through the [facility] as any further surgical intervention would be [...] Data Reviewed: Tests & Documents Reviewed/ordered: [facility] I have independently interpreted: CT [...] of treatment plan: low documented in this encounterHighland District Hospital06-11-2024 Miscellaneous Notes* Telephone Encounter - Jenna Sevilla LPN - 08/10/2023 12:17 PM EDT Forms were signed and faxed on 08/03/23. Patient aware, states received call from [facility] stating order was on its way to patient. Jenna Sevilla LPN * Telephone Encounter - Katy Faust MD - 08/09/2023 12:50 PM EDT Verify forms were signed and faxed then let patient know * Telephone Encounter - Jenna Sevilla LPN - 08/03/2023 1:51 PM EDT Forms received from [facility], patient updated via [employer] and forms forwarded to PCP. Jenna Sevilla LPN documented in this encounterHighland District Hospital06-11-2024 Telephone encounter Note * Telephone Encounter - Jenna Sevilla LPN - 08/10/2023 12:17 PM EDT Forms were signed and faxed on 08/03/23. Patient aware, states received call from [facility] stating order was on its way to patient. Jenna Sevilla LPN [facility]06-10-[facility]24 Telephone encounter Note* Telephone Encounter - Katy Faust MD - 08/09/2023 12:50 PM EDT Verify forms were signed and faxed then let patient know [facility]06-04-2024 Telephone encounter Note* Telephone Encounter - Jenna Sevilla LPN - 08/03/2023 1:51 PM EDT Forms received from [facility], patient updated via [employer] and forms forwarded to PCP. Jenna Sevilla LPN [facility]05-31-2024 Telephone encounter Note* Telephone Encounter - Ashlyn Sullivan RN - 07/30/2023 4:09 PM EDT Women'S Activities Adviser spoke to pt and procedure on 09/30/23 and routing on 09/22/23 is agreeable. [facility]05-[facility] Miscellaneous Notes* Telephone Encounter - Ashlyn Sullivan RN - 07/30/2023 4:09 PM EDT Women'S Activities Adviser spoke to pt and procedure on 09/30/23 and routing on 09/22/23 is agreeable. * Telephone Encounter - Kateryna Macedo - 07/30/2023 3:06 PM EDT Jai Luna accepts 09/14 preop but 09/22 surgery is not a good date. documented in this encounterHighland District Hospital05-31-2024 Telephone encounter Note * Telephone Encounter - Kateryna Macedo - 07/30/2023 3:06 PM EDT Jai Luna accepts 09/14 preop but 09/22 surgery is not a good date. [facility] Telephone encounter Note* Telephone Encounter - Ashlyn Sullivan RN - 07/30/2023 2:06 PM EDT Women'S Activities Adviser called pt and left a VM offered 09/22 for EUA and flex sig and route on 09/14 and get his MRI rectum that day as well. [facility]05-31-[facility] Miscellaneous Notes* Telephone Encounter - Ashlyn Sullivan RN - 07/30/2023 2:06 PM EDT Women'S Activities Adviser called pt and left a VM offered 09/22 for EUA and flex sig and route on 09/14 and get his MRI rectum that day as well. documented in this encounterHighland District Hospital05-29-2024 History of Present illness Narrative* Ramiro Cheung MD - 07/28/2023 4:45 PM EDT COLORECTAL SURGERY VIRTUAL VISIT FOLLOW UP I have communicated my name and active licensure. The patient's identity and physical location wereverified at the time of this visit. Either the patient or their legal registered representative has been informed of the risks [...] He had an OV with Dr Muñiz ([facility]) on 07/14/23 for rectal bleeding and it was recommended that he see Dr Cheung again to assess as to the source of the bleeding. Hx: rectal CA, stricture at anastomosis site 07/14/[address] Muñiz ([facility] at [facility]) - Recommendation is to identify the source of your rectal bleeding - Follow-up with Urology to evaluate for a fistula connection to the urethra - Further surgical intervention is recommended to be pursued with Dr. Cheung or through the [facility] given the complexity of your case. Further work-up prior to surgery should be performed through the [facility] as any further surgical intervention would be [...] Procedures / Tests: Colonoscopy, Flexible Sigmoidoscopy Assessment [facility] I have independently interpreted: n/a I have discussed Jai Luna's treatment plan and/or results with patient. Treatment plan: EUA in the OR with flexible sigmoidoscopy I Dutch Cheung MD Risk of morbidity, mortality and/or complications of treatment plan: aníbal I spent a total of 35 minutes on the date of the service which included preparing to see the patient and [id number] patient care. documented in this encounterHighland District Hospital05-15-2024 History of Present illness Narrative* Sabrina Muñiz [...] friable, bleeding mucosa Exam chaperoned by female assistant office manager. ASSESSMENT/PLAN: Diagnosis Plan 1. Rectal bleeding External [...] further work-up/surgical intervention . Sabrina Muñiz [place] [facility] [place] [facility] [address], [address] [place], [place] [address] p [phone] f [phone] * Belkis Baptiste RN - 07/14/2023 1:30 [...] when ejaculating since surgery. documented in this [facility]05-15-2024 Instructions* Patient Instructions* Belkis Baptiste RN - 07/14/2023 1:30 PM EDT - Recommendation is to identify the source of your rectal bleeding - Follow-up with Urology to evaluate for a fistula connection to the urethra - Further surgical intervention is recommended to be pursued with Dr. Cheung or through the [facility] given the complexity of your case. Further work-up prior to surgery should be performed through the [facility] as any further surgical intervention would be recommended through this institution. documented in this [facility]04-15-2024 SRIDEVI Palacios MA Caller: Unspecified (Today, 8:32 AM) Please review [employer] OFFICE MACHINES WIRER Referral scanned to media today.[facility] 06-14-2023 History of Present illness Narrative* [...] PATIENT PRESENTS WITH AN IMPLANTABLE OR ATTACHED BONDING MOLDER: No RADIOLOGY DEPARTMENT: General X-ray: Exam(s) Completed: Upper Extremity X- Ray(s): Shoulder, AP / TRUE AP / AXILLARY left PERIPHERAL IV DATA: Not applicable SIGNED BY: RT Claudia(R) June 14, 2023 8:36 AM documented in this encounterHighland District Hospital04-15-2024 History of Present illness Narrative* Michael Christian MD - 06/14/2023 8:52 AM EDT Michael Christian MD Department of Orthopaedics Orthopaedics [address] [place] [address] Dept: [phone] Dept June 14, 2023 CHIEF COMPLAINT: New [...] all contraindications were reviewed. OBJECTIVE: Mr. Jai Luan is a pleasant 73 year old in [...] distribution IMAGING: IMPRESSION: Rotator cuff calcific tendinosis Towing Pilot: PSCB Transcribe Date/Time: Jun 16 2023 4:30P [...] Coronary atherosclerosis of unspecified type of vessel, [place] or graft Coronary artery disease Diverticulosis of [...] Status PROSTATE SURGERY HX STRABISMUS RECESSION/RESCJ 1 [facility] Strabismus surgery TONSILLECTOMY HX TONSILLECTOMY PRIMARY/SECONDARY <AGE [...] mouth daily at bedtime. For cholesterol per [facility]. No current facility-administered medications for this visit. Allergies: Cat Dander, Clindamycin, and Codeine ROS: General (negative for fatigue, malaise, weight loss/gain) HEENT (negative for headache, earache, recent vision changes, sinus pain, sore throat) Respiratory (no recent shortness of breath, hemoptysis) CV (negative for chest tightness, palpitations) Musculoskeletal (see HPI) Psych (no depression, anxiety) Michael Christian MD documented in this encounterHighland District Hospital04-01-2024 History of Present illness Narrative* Mary Anne Alejandro APRN.FURNITURE INSPECTOR - 05/31/2023 9:59 AM EDT This note [...] same States that he has visited a emergency medicine physician in the past for same Was hoping you would remove it for me Endorses he is currently being worked up for PVD left lower leg The history is provided by the patient. No customer service assistant was used. Pain (foot) Pain location: left [...] Coronary atherosclerosis of unspecified type of vessel, [place] or graft Coronary artery disease Diverticulosis of [...] Status [facility] Strabismus surgery TONSILLECTOMY [...] appt) Discussed red flags Mary Anne Alejandro APRN.FURNITURE INSPECTOR documented in this encounterHighland District Hospital02-27-2024 History of Present illness Narrative* Bhavna Villatoro RN - 04/27/2023 4:11 PM EST pcp agrees with information * Bhavna Villatoro RN - 04/27/2023 2:21 PM EST patient had inr completed at [facility] patients inr is 2.1 (patients inr range [...] for follow up INR. documented in this encounterHighland District Hospital02-21-2024 Miscellaneous Notes* Telephone Encounter - Jie Abdi MA - 04/21/2023 10:00 AM EST Consult pended, please file if agreeable. Jie Abdi MA documented in this encounterHighland District Hospital02-13-2024 History of Present illness Narrative* Bhavna Villatoro RN - 04/13/2023 3:57 PM EST pcp agrees with information * Bhavna Villatoro RN - 04/13/2023 2:02 PM EST patient had inr completed at [facility] patients inr is 1.9 (patients inr [...] for follow up INR. documented in this encounterHighland District Hospital11-01-2023 Miscellaneous Notes* Telephone Encounter - Elly Ash [...] you. Elly Ash LPN. documented in this encounterHighland District Hospital10-31-2023 History of Present illness Narrative* Bhavna Villatoro RN - 12/29/2022 6:50 PM EDT pcp agrees with information * Bhavna Villatoro RN - 12/29/2022 2:39 PM EDT patient had inr completed at [facility] patients inr is 2.7 (patients inr range [...] follow u p INR. documented in this encounterHighland District Hospital10-17-2023 History of Present illness Narrative* Bhavna Villatoro RN - 12/15/2022 5:51 PM EDT pcp agrees with information * Bhavna Villatoro RN - 12/15/2022 3:00 PM EDT patient had inr completed at [facility] patients inr is 2.0 (patients inr range [...] medication 2 weeks ago documented in this encounterHighland District Hospital10-05-2023 Surgical operation note* Brief Op Note - Justin William MD - 12/03/2022 11:44 AM EDT BRIEF OPERATIVE / PROCEDURE NOTE LOG ID: [id number] SURGERY/PROCEDURE DATE: 12/03/2022 INCISION/PROCEDURE START TIME: 11:24 AM INCISION CLOSE/PROCEDURE END TIME: 11:37 AM SURGEON(S)/PROCEDURALIST(S) AND PARCEL POST DELIVERY(S): Surgeon(s) and Role: * Justin William MD [...] 2022 TIME: 11:45 AM documented in this encounterHighland District Hospital10-05-2023 History and physical note * Justin William [...] Coronary atherosclerosis of unspecified type of vessel, [place] or graft Coronary artery disease Diverticulosis of [...] PROSTATE SURGERY HX STRABISMUS RECESSION/RESCJ 1 [facility] Strabismus surgery TONSILLECTOMY [...] mouth daily at bedtime. For cholesterol per [facility]. coenzyme Q10 (COENZYME Q-10) 100 [...] 2022 TIME: 11:15 AM documented in this encounterHighland District Hospital09-29-2023 Miscellaneous Notes* Telephone Encounter - Rebecca Yeh RN - 11/27/2022 2:42 PM EDT You are scheduled for a IVC Filter Removal, On 12/03/2022. You are to arrive at 0900 am for a 1030 procedure time and Report to [facility]: Entrance A, Elevators to first floor, Ambulatory [...] of 1.5 or less forday of procedure. Quality Systems Specialist/Transportation: How will you be arriving for your procedure? Private car. You will need a responsible adult to accompany you to and from the procedure. Your courtesy driver is required to stay with you until you are taken into the procedure room. Please call with any questions [phone] opt 2 to speak with the Radiology Nurses documented in this encounterHighland District Hospital09-19-2023 History of Present illness Narrative* Bhavna Villatoro RN - 11/17/2022 4:32 PM EDT pcp agrees with information * Bhavna Villatoro RN - 11/17/2022 2:28 PM EDT patient had inr completed at [facility] patients inr is 2.2 (patients inr range [...] follow u p INR. documented in this encounterHighland District Hospital09-18-2023 Miscellaneous Notes* Telephone Encounter - Mady Campbell RN - 11/16/2022 4:19 PM EDT WO nursing returned patient message regarding issues with pouch lifting and "hole" under stoma. Left Message: No spoke directly with patient Information/Recommendations provided regarding Patient had a few issues. He states pouching system ([employer] soft convex drainable) has been working well except for past few weeks. It has been lifting and difficult to get to stick. Patient changed yesterday and so far it is working well. He did not want to come in to see outpatient [facility] [place] did he want to discuss changing anything at all because it is "so far working well this time". 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 Biggest conversation centered around his inability to cancel his vascular IR appointment and reschedule. He has been "getting the run around for days". This [facility] nurse attempted to find out how he would do this without luck. Time spent: 30 minutes SCOTTIE Hernandez, RN, CWOCN documented in this encounterHighland District Hospital09-05-2023 History of Present illness Narrative* Bhavna Villatoro [...] PM EDT patient had inr completed at [facility] patients inr is 1.8 (patients inr range [...] greens over the week documented in this encounterHighland District Hospital09-05-2023 Miscellaneous Notes* Telephone Encounter - Maddison Kohler RN - 11/03/2022 1:42 PM EDT patient is scheduled thank you! * Telephone Encounter - Maddison Kohler RN - 11/03/2022 1:02 PM EDT left a message on home phone and spoke with the patient's ( patient is with his ) patient needs Carotid US patient in agreement message routed to [facility] to assist with scheduling [place] prefers imaging closer to his home if possible thank you documented in this encounterHighland District Hospital09-05-2023 Instructions* Patient Instructions* Terry Cifuentes MD - [...] PRIOR TO YOUR VISIT. documented in this encounterHighland District Hospital09-05-2023 History of Present illness Narrative* Terry Cifuentes MD - 11/03/2022 10:00 AM EDT Images from the original note were not included. Heart and Vascular [facility] Department of Cardiovascular Medicine SECTION [...] was resumed. 07/20/2022 underwent LLE VDU at [facility]: New symptoms or concerns: walking is painful, [...] Coronary atherosclerosis of unspecified type of vessel, [place] or graft Coronary artery disease Diverticulosis of [...] PROSTATE SURGERY HX STRABISMUS RECESSION/RESCJ 1 [facility] Strabismus surgery TONSILLECTOMY [...] the proximal calf. Technologist: Isis Flynn RVT, [facility] Ordering physician: YESSICA TINOCO Interpreting physician: TOM [...] Abs Lymph 1.00 - 4.00 k/uL 1.24 Gosper% % 14.6 Abs Gosper <0.87 k/uL 0.78 Eosin% % 3.7 Abs [...] REMOVAL, COMPRESSION STOCKINGS (Z79.01) Current use of intermodal customer service anticoagulation (R09.89) Bruit of right carotid artery [...] patient was found acute DVT 06/2021 (at [facility], no access to imaging), following which [...] anticoagulation Request venous duplex US imaging from [facility] (06/2022) Carotid duplex US to evaluate asymptomatic [...] CC: Katy Faust MD documented in this encounterHighland District Hospital08-24-2023 Miscellaneous Notes* Telephone Encounter - Yessica Tinoco APRN.CNP - 10/22/2022 4:41 PM EDT INTERVENTIONAL RADIOLOGY PATIENT APPOINTMENT REQUEST October 22, 2022 Jai Luna [id number] Request: Schedule Requestor: Yessica Tinoco APRN.CNP Ref.Physician: [...] Location of Procedure: NA documented in this encounterHighland District Hospital08-02-2023 Miscellaneous Notes* Telephone Encounter - Yessica Tinoco [...] Sent a message to the patient via Naked[employer] to schedule US DVT and have follow up appt with vascular medicine. Yessica Tinoco APRN.CHELSIE documented in this encounterHighland District Hospital07-10-2023 History of Present illness Narrative* Bhavna Villatoro RN - 09/07/2022 4:05 PM EDT pcp agrees with information * Bhavna Villatoro RN - 09/07/2022 11:57 AM EDT patient had inr completed at [facility] patients inr is 2.0 (patients inr range [...] for follow up INR. documented in this encounterHighland District Hospital06-27-2023 History of Present illness Narrative* Bhanva Villatoro RN - 08/25/2022 5:17 PM EDT pcp agrees with information * Bhavna Villatoro RN - 08/25/2022 9:45 AM EDT patient had inr completed at [facility] patients inr is 1.8 (patients inr range [...] in diet last week documented in this encounterHighland District Hospital06-13-2023 History of Present illness Narrative* Bhavna Villatoro RN - 08/11/2022 4:30 PM EDT pcp agrees with information * Bhavna Villatoro RN - 08/11/2022 2:22 PM EDT patient had inr completed at [facility] patients inr is 2.5 (patients inr range [...] reading since dose change documented in this encounterHighland District Hospital06-05-2023 History of Present illness Narrative* Bhavna Villatoro RN - 08/03/2022 5:03 PM EDT pcp agrees with recommendation PATIENT NOTIFIED OF INFORMATION * Bhavna Villatoro RN - 08/03/2022 12:17 PM EDT patient had inr completed at [facility] patients inr is 3.2 (patients inr range [...] up inr on 08/11/22 documented in this encounterHighland District Hospital06-05-2023 Miscellaneous Notes* Telephone Encounter - Bhavna Villatoro RN - 08/03/2022 12:24 PM EDT Patient is a new patient to the [place] [facility] and we are needing new standing orders for testing. Orders have been pended for review and file if able. CC only needs called if orders cannot be filed. Thanks documented in this encounterHighland District Hospital05-30-2023 Miscellaneous Notes* Telephone Encounter - Norm Parker [...] rechecked? Cony Raygoza RN documented in this encounterHighland District Hospital05-10-2023 Miscellaneous Notes* Telephone Encounter - Ginger Ingram LPN - 07/08/2022 4:37 PM EDT Phoned Vicki at [facility] and went over notes from Norm Parker OFFICE MACHINES WIRER with understanding. * Telephone Encounter - Norm Parker APRN.CNP - 07/08/2022 3:33 PM EDT Ok for the 2 times weekly. * Telephone Encounter - Ginger Ingram LPN - 07/08/2022 3:28 PM EDT Vicki from [facility] calling said with patient office notes from yesterday the OFFICE MACHINES WIRER says on average patient changes ostomy bag 1-2 times weekly but depends on the week up to 4 times a week. Theycan only give the patient ostomy supplies for 2 times weekly, unless the office notes are changed to say he changes ostomy bag 4 times weekly. Please advise documented in this encounterHighland District Hospital05-08-2023 Miscellaneous Notes* Telephone Encounter - Coral Charles RN - 07/06/2022 3:53 PM EDT Patient has appointment with Norm on 07/07 and will discuss with her then. Coral Charles RN documented in this encounterHighland District Hospital03-28-2023 Miscellaneous Notes* Telephone Encounter - Jenna Sevilla [...] into the office today and dropped off [facility] Juror excuse form. Patient has filled it but needs letter signed by primary excusing patient from jury duty. Patient states he was dx with cancer and recently had procedure done. He doesn't feel like he could sit through court due to discomfort and he is having to go to the bedroom frequently. Please mail form and letter back to [facility] Jury Commission with enclosed envelope. Form is at nurse's pod documented in this encounterHighland District Hospital03-22-2023 History of Present illness Narrative* Ramiro Cheung [...] done yet. His case was presented to [facility] where it was recommended to proceed with danielle cut biopsy, which was done and revealed Invasive moderately differentiated squamous cell carcinoma. He completed Modified Charlene chemoradiation on Jul 21 2021, completed restaging in August, and was presented to [facility]. It was recommended that he follow up in three months to assess response to determine if he can proceed with watch and wait or should have surgery. He had this follow up on 12.10.2021 and was presented to [facility] on 12.17.2021 where it was recommended [...] PT called and expecting a call from [facility]. After initial visit at [facility] likely will get the treatment in [place] and come back for surgery if indicated. [...] of treatment plan: high documented in this encounterHighland District Hospital03-22-2023 History of Present illness Narrative* Mary Anne Pierre RN - 05/20/2022 3:03 PM EDT ET/WOCN Nursing Consult Topic: ET/WOCN Consultation Note ET Outcome: Patient seen in the outpatient clinic accompanied to see Dr. Cheung and [facility] nursing for discussion about stoma closure. No [...] Pierre RN, BSN, CWOCN documented in this encounterHighland District Hospital03-22-2023 Instructions* Patient Instructions* Terry Balderrama MD - 05/20/2022 12:23 PM EDT PLEASE PLAN TO HOLD ELIQUIS FOR 4 DAYS PRIOR TO SURGERY. SCHEDULE ULTRASOUND OF THE LEGS IN THE [facility] THE RESULTS OF THE ULTRASOUND WILL DETERMINE THE BLOOD THINNER MANAGEMENT AFTER DISCHARGE. THIS IS TO BE DETERMINED. NO PLANS TO REMOVE THE FILTER UNTIL AFTER THE SURGERY. I WILL ADVISE FURTHER. PLAN TO SCHEDULE 6 WEEKS FOLLOW UP AFTER YOUR SURGERY WITH ME documented in this encounterHighland District Hospital03-22-2023 History of Present illness Narrative* Terry Balderrama MD - 05/20/2022 12:09 PM EDT Images from the original note were not included. Heart and Vascular [facility] Department of Cardiovascular Medicine SECTION [...] Abs Lymph 1.00 - 4.00 k/uL 1.44 Gosper% % 9.4 Abs Gosper <0.87 k/uL 0.82 Eosin% % 1.3 Abs [...] MD Ramiro Feliciano MD documented in this encounterHighland District Hospital03-22-2023 Instructions* Patient Instructions* Abundio Prado APRN.ZINA HOLGUIN - 05/20/2022 10:09 AM EDT PATIENT PREOPERATIVE INSTRUCTIONS Ramiro Cheung MD has scheduled you for your procedure at this surgery center: [facility] [place] Scheduling Office: [phone] --[address] [place] [address]. Please read below carefully for your personalized [...] Procedures: - YOU MUST HAVE A RESPONSIBLE [employer]S SALESPERSON TAKE YOU HOME. A HEALTH LEAD OR SENIOR TECH MANUFACTURING ENGINEERING CANNOT BE MADE A RESPONSIBLE CORSETS SALESPERSON. - We recommend that a responsible person [...] call the Wednesday before. Your surgeon s scheduler conveyor will tell you what time to call the office. - If you have not reached the departmental scheduler conveyor by 5 P.M., call [phone] after 5 P.M. the day before your surgery. Please be aware that emergency situations arise, which may delay or change your surgical time. If this happens, we will notify you as soon as possible and regret any inconvenience. If you already have an Advance Directive, please fax a copy to [phone] or email to for it to be [...] DORIS Prado APRN.CNP, DNP documented in this encounterHighland District Hospital03-22-2023 History and physical note * Abundio Prado [...] Coronary atherosclerosis of unspecified type of vessel, [place] or graft Coronary artery disease Diverticulosis of [...] Status PROSTATE SURGERY HX STRABISMUS RECESSION/RESCJ 1 [facility] Strabismus surgery TONSILLECTOMY HX TONSILLECTOMY PRIMARY/SECONDARY <AGE [...] aid. Neuro: No history of TIA's, stroke, TECHNICIAN SUPPORT ENGINEER tumor, impaired sensorium, hemiplegia, paraplegia or quadraplegia. No neurological symptoms or problems. Respiratory: No history of current cough or dyspnea, or pneumonia in the past 6 weeks. No history of respiratory/pulmonary symptoms or problems. 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 -Follows with vascular medicine here at [facility] - scheduled to see vascular, Dr. [...] NORMAL ECG Confirmed by WINTER BROOKS MD ([id number]) on 03/15/2022 8:20:19 PM Most recent Echo [...] 2022 TIME: 9:53 AM documented in this encounterHighland District Hospital03-22-2023 History of Present illness Narrative* Jie Almaraz, [...] 20, 2022 8:51 AM documented in this encounterHighland District Hospital03-20-2023 History of Past illness Narrative* Problem Noted [...] of this encounter (statuses as of 07/09/2022) [facility] of Past illness Narrative* Problem Noted [...] of this encounter (statuses as of 07/28/2022) [facility]03[facility] of Past illness Narrative* Problem Noted [...] & Plan: Assessment: extubated 02/05 Mild b/l OGYO atelectasis, satting 98-99% on RA 02/06 Requiring [...] of this encounter (statuses as of 08/04/2022) [facility] of Past illness Narrative* Problem Noted [...] of this encounter (statuses as of 08/12/2022) [facility] of Past illness Narrative* Problem Noted [...] of this encounter (statuses as of 08/17/2022) [facility] of Past illness Narrative* Problem Noted [...] of this encounter (statuses as of 08/19/2022) [facility] of Past illness Narrative* Problem Noted [...] of this encounter (statuses as of 08/26/2022) [facility] of Past illness Narrative* Problem Noted [...] of this encounter (statuses as of 09/08/2022) [facility] of Past illness Narrative* Problem Noted [...] of this encounter (statuses as of 09/30/2022) [facility] of Past illness Narrative* Problem Noted [...] of this encounter (statuses as of 09/30/2022) [facility] of Past illness Narrative* Problem Noted [...] of this encounter (statuses as of 10/02/2022) [facility] of Past illness Narrative* Problem Noted [...] of this encounter (statuses as of 10/21/2022) [facility] of Past illness Narrative* Problem Noted [...] of this encounter (statuses as of 11/04/2022) [facility] of Past illness Narrative* Problem Noted [...] of this encounter (statuses as of 11/04/2022) [facility] of Past illness Narrative* Problem Noted [...] of this encounter (statuses as of 11/04/2022) [facility] of Past illness Narrative* Problem Noted [...] of this encounter (statuses as of 11/05/2022) [facility] of Past illness Narrative* Problem Noted [...] of this encounter (statuses as of 11/16/2022) [facility] of Past illness Narrative* Problem Noted [...] of this encounter (statuses as of 11/17/2022) [facility] of Past illness Narrative* Problem Noted [...] of this encounter (statuses as of 11/18/2022) [facility] of Past illness Narrative* Problem Noted [...] of this encounter (statuses as of 11/28/2022) [facility] of Past illness Narrative* Problem Noted [...] of this encounter (statuses as of 12/05/2022) [facility] of Past illness Narrative* Problem Noted [...] of this encounter (statuses as of 12/16/2022) [facility] of Past illness Narrative* Problem Noted [...] of this encounter (statuses as of 12/30/2022) [facility] of Past illness Narrative* Problem Noted [...] of this encounter (statuses as of 04/13/2023) [facility] of Past illness Narrative* Problem Noted [...] of this encounter (statuses as of 04/23/2023) [facility] of Past illness Narrative* Problem Noted [...] of this encounter (statuses as of 04/28/2023) [facility] of Past illness Narrative* Problem Noted [...] of this encounter (statuses as of 05/31/2023) [facility] of Past illness Narrative* Problem Noted [...] of this encounter (statuses as of 06/11/2023) [facility] of Past illness Narrative* Problem Noted [...] of this encounter (statuses as of 06/15/2023) [facility] Miscellaneous Notes* Telephone Encounter - Liz Xavier APRN.CNP - 04/29/2022 5:15 PM EST Telephone Encounter~ Person of Contact: Pt Reason for Call: discuss IVC Filter appointment Outcome of Call: Pt will reschedule his IR IVC [place] removal consult until after follow up &surgery. Pt will complete follow up with Vascular Medicine 05/20/22. Pt recently switched from Lovenox to Eliquis. staff contacted with plan of care. Planned colorectal surgery 06/04/22 Contact Number Given: Yes Number of minutes: A total of (10) minutes was spent on this encounter Liz Xavier APRN.CNP April 29, 2022 documented in this encounterHighland District Hospital02-24-2023 Miscellaneous Notes* Telephone Encounter - Leandro Cruz RN - 04/24/2022 2:[address] Ramiro Cheung; This message is to inform you that your patient has been discharged from skilled home health services as of 04/23/22. Goals met. Thank you for choosing [facility] for [facility] to serve your patient's home careneeds. Leandro Cruz RN documented in this encounterHighland District Hospital02-23-2023 Miscellaneous Notes* SN Agency DC - Doris Rivera RN - 04/23/2022 11:35 AM EST SITUATION: Penitentiary agency discharge visit completed today. spouse also [...] performed. Specific SN discharge instructions: Access the [facility] ostomy and wound department as a resource [...] for additional medical questions/concerns. documented in this encounterHighland District Hospital02-22-2023 History of Present illness Narrative* Katy Faust MD - 04/22/2022 4:48 PM EST This note was created using VoltDBriter. Subjective Jai Luna is a 72 year [...] Coronary atherosclerosis of unspecified type of vessel, [place] or graft Coronary artery disease Diverticulosis of colon (without mention of hemorrhage) Dyslipidemia 01/16/2013 History of transfusion Hypertension Rectal malignant neoplasm (HCC) 05/29/2021 Rectal mass Current Outpatient Medications Medication Sig apixaban (ELIQUIS) 5 mg tab(s) Take 1 tablet by mouth twice daily. atorvastatin (LIPITOR) 40 mg tablet Take 1 tablet by mouth daily at bedtime. For cholesterol per [facility]. coenzyme Q10 (COENZYME Q-10) 100 [...] PROSTATE SURGERY HX STRABISMUS RECESSION/RESCJ 1 [facility] Strabismus surgery TONSILLECTOMY [...] coronary artery bypass graft Z95.1 follows with [facility] 6. Dyslipidemia E78.5 On Lipitor [...] indicated. Katy Faust MD documented in this encounterHighland District Hospital02-22-2023 Miscellaneous Notes* PT DISCHARGE - Estefany Stern, [...] summary for intervention/education details. documented in this encounterHighland District Hospital02-21-2023 Miscellaneous Notes* PT ROUTINE/REASSESSMENT/RECERT/CASE MGMT - Isela Patrizia, TRUCK RENTAL CLERK - 04/21/2022 11:05 AM EST SITUATION: spouse [...] summary for intervention/education details. documented in this encounterHighland District Hospital02-17-2023 Miscellaneous Notes* PT ROUTINE/REASSESSMENT/RECERT/CASE MGMT - Isela Acharya PTA - 04/17/2022 11:14 AM EST SITUATION: only patient present during today's visit. patient reports the following since the last homecare visit: medications/allergies--no changes, no fall. patient reports he has had low BP today. [facility] nurse called today during her visit [...] summary for intervention/education details. documented in this encounterHighland District Hospital02-17-2023 Miscellaneous Notes* CARE COORDINATION - Leandro Cruz RN - 04/17/2022 10:55 AM EST 04/13/22 11:00am SN contacted [facility] for follow up on 04/17/22 regarding the whereabouts of the "drop-ship" order placed on 04/09/22. This SN spoke with "Josh," he investigated with the cushion mat maker and discovered there is low availablility of [...] arrive today via [employer]. documented in this encounterHighland District Hospital02-15-2023 Miscellaneous Notes* PT ROUTINE/REASSESSMENT/RECERT/CASE MGMT - Isela [...] summary for intervention/education details. documented in this encounterHighland District Hospital02-13-2023 Miscellaneous Notes* Telephone Encounter - Ladan Oviedo - 04/13/2022 12:15 PM EST April 13, 2022 [id number] Patient Name: Jai Luna Contact Information: DERRICK Callejas [facility] Home Care Reason For Call:Patient Update Britta from [facility] Home [facility] called with an update on the patient. She stated that he is feeling much better, vital signs are stable, can tolerate activity. Patient feels much better than last . Physician:Terry Cifuentes MD documented in this encounterHighland District Hospital02-13-2023 Miscellaneous Notes* SN Routine - Britta Mantilla RN - 04/13/2022 11:36 AM EST SITUATION: Penitentiary routine visit completed today. spouse also present [...] at end ofcert period. documented in this encounterHighland District Hospital2023 Miscellaneous Notes* HH SN Routine - Britta Mantilla RN - 04/09/2022 10:21 AM EST SITUATION: Penitentiary routine visit completed today. spouse also present [...] demonstration for ostomy care. documented in this encounterHighland District Hospital02-08-2023 Miscellaneous Notes* Telephone Encounter - Don Feldman [...] Norm Parker APRN.CHELSIE * Telephone Encounter - Don Feldman LPN - 04/07/2022 4:04 PM EST [...] EST Don, can we send him to [place] lab to have the stat potassium drawn? [...] 3:35PM. Jerilyn Mariscal LPN documented in this encounterHighland District Hospital02-07-2023 Miscellaneous Notes* PT ROUTINE/REASSESSMENT/RECERT/CASE MGMT - Isela [...] summary for intervention/education details. documented in this encounterHighland District Hospital02-06-2023 History of Present illness Narrative* Norm Parker APRN.FURNITURE INSPECTOR - 04/06/2022 3:02 PM EST SUBJECTIVE Jai [...] Cheung for his surgeon, Dr. Antoine forhis ophthalmologist (history of prior CABG), and Dr. Lakhani [...] ACTIVE PROBLEM LIST Pulmonary Embolism and Infarction ([facility]) - 03/02/2022 Pulmonary Embolism ([facility]) - 02/13/2022 Hypokalemia - 02/10/2022 Urinary Retention - 2022 Malnutrition of Mild Degree ([facility]) - 02/05/2022 Finesse (Acute Kidney Injury) ([facility]) - 02/03/2022 (Acute) Ileostomy in Place ([facility]) - 01/28/2022 Rectal Cancer ([facility]) - 01/27/2022 Rectal Malignant Neoplasm ([facility]) - 05/29/2021 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 2. Malignant neoplasm of colon, unspecified part of colon (HCC) - ICD9: 153.9, ICD10: C18.9 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) - ICD9: V44.2, ICD10: Z93.2 Working with [facility] on care of this, hopeful for reversal [...] medications.. Norm Parker APRN-CHELSIE documented in this encounterHighland District Hospital02-06-2023 Miscellaneous Notes* SN Routine - Britta Mantilla RN - 04/06/2022 1:16 PM EST SITUATION: Penitentiary routine visit completed today. spouse also present [...] discipline dc next week. documented in this encounterHighland District Hospital02-03-2023 Miscellaneous Notes* PT ROUTINE/REASSESSMENT/RECERT/CASE MGMT - Isela [...] summary for intervention/education details. documented in this encounterHighland District Hospital02-02-2023 Miscellaneous Notes* SN Routine - Britta Mantilla RN - 04/02/2022 5:01 PM EST SITUATION: Penitentiary routine visit completed today. spouse also present [...] am, he had appts for ultrasounds at [facility] [facility]. He is tolerating more activity that [...] nursing within 2-3 weeks. documented in this encounterHighland [facility] Hospital02-01-2023 Miscellaneous Notes* Telephone Encounter - Smitha Dawson RN - 04/01/2022 8:45 AM EST Called and spoke with patient He can't come off anticoagulant until May Will schedule surgery 06.04.22 and preop 05.20.2022 * Telephone Encounter - Smitha Dawson RN - 04/01/2022 8:29 AM EST Called and spoke with patient He can't come off anticoagulant until May * Telephone Encounter - Kateryna Sandoval [facility] - 03/31/2022 4:15 PM EST [phone] Jai Luna called to schedule surgery. documented in this encounterHighland District Hospital01-31-2023 Miscellaneous Notes* PT ROUTINE/REASSESSMENT/RECERT/CASE MGMT - Isela [...] summary for intervention/education details. documented in this encounterHighland District Hospital01-30-2023 Miscellaneous Notes* SN Routine - Britta Mantilla RN - 03/30/2022 2:16 PM EST SITUATION: Penitentiary routine visit completed today. spouse also present [...] for ostomy pouch change. documented in this encounterHighland District Hospital01-27-2023 Miscellaneous Notes* PT ROUTINE/REASSESSMENT/RECERT/CASE MGMT - Isela Acharya, TRUCK RENTAL CLERK - 03/27/2022 2:05 PM EST SITUATION: spouse [...] summary for intervention/education details. documented in this encounterHighland District Hospital01-26-2023 Miscellaneous Notes* SN Routine - Doris Rivera RN - 03/26/2022 11:50 AM EST SITUATION: Penitentiary routine visit completed today. spouse also present [...] how did it work? documented in this encounterHighland District Hospital01-25-2023 Miscellaneous Notes* PT ROUTINE/REASSESSMENT/RECERT/CASE MGMT - Isela [...] summary for intervention/education details. documented in this encounterHighland District Hospital01-24-2023 Miscellaneous Notes* SN Routine - Britta Mantilla RN - 03/24/2022 10:06 AM EST SITUATION: Penitentiary routine visit completed today. spouse also present [...] ring. Abdomen is soft, pt reports is warp bleaching vat tender on the inside. Edema to L [...] only assist if needed. documented in this encounterHighland District Hospital01-23-2023 History of Present illness Narrative* Isaura Benítez RN - 03/23/2022 2:26 PM EST ET/WOCN Nursing Consult Topic: ET/WOCN Consultation Note Outcome: Patient and spouse in A30 for post-op visit. Current pouching system appropriate but smaller aperture needed. New pattern made. Patient is currently being followed by [facility] and they are assisting him with pouch [...] Soft Convex (5/8"-1 16") Cut-to-Fit Drainable Pouch (#[id number]), 4.2 Coloplast Brava Moldable Ring (#[id number]), elastic barrier strips Wearing time: 3 days [...] Benítez RN, BSN, CWOCN documented in this encounterHighland District Hospital01-23-2023 History of Present illness Narrative* Skyla Alex, ACADEMIC AFFAIRS MANAGER.FURNITURE INSPECTOR - 03/23/2022 1:30 PM EST COLORECTAL SURGERY [...] mouth daily at bedtime. For cholesterol per [facility]. metoprolol tartrate, short acting, (LOPRESSOR) [...] Anal area with mild erythema, MARIAJOSE deferred Manager Drive present: Yes, Alycia Nunn Rectal Cancer Tumor Board Post-Operative Discussion Note Date of conference: 02/11/2022 Date of surgery: 01/27/2022 Pre-treatment clinical stage: T3dN+ Pre-treatment CEA level: CEA (ng/mL) Date Value 06/09/2021 2.2 Neoadjuvant therapy prior to surgery: Yes: Other: CHARLENE protocol Neoadjuvant therapy date of completion: 07/21/2021 He completed Modified Charlene chemoradiation on July 21, completed restaging in August, and was presented to [facility]. It was recommended that he follow [...] oncology for surveillance Will send message to [place] to coordinate tentative pending preops and clearance by Dr. Cheung- will need to coordinate with vascular not sure when he can stop blood thinner Per [facility] medicine Dr. Balderrama: PLEASE LET ME KNOW [...] BLEEDING Skyla Alex APRN.CNP documented in this encounterHighland District Hospital01-23-2023 Instructions* Patient Instructions* Terry Balderrama MD - [...] CONTINUE MONITORING FOR BLEEDING documented in this encounterHighland District Hospital01-23-2023 History of Present illness Narrative* Terry Balderrama MD - 03/23/2022 11:00 AM EST Images from the original note were not included. [facility] Department of Cardiovascular Medicine SECTION [...] Coronary atherosclerosis of unspecified type of vessel, [place] or graft Coronary artery disease Diverticulosis of [...] PROSTATE SURGERY HX STRABISMUS RECESSION/RESCJ 1 [facility] [place] Strabismus surgery TONSILLECTOMY HX TONSILLECTOMY PRIMARY/SECONDARY <AGE 12 Tonsillectomy VASCULAR SURGERY PROCEDURE Allergies: Clindamycin and Codeine CURRENT MEDICATIONS: Current Outpatient Medications Medication Sig atorvastatin (LIPITOR) 40 mg tablet Take 1 tablet by mouth daily at bedtime. For cholesterol per [facility]. enoxaparin (LOVENOX) 80 mg/0.8 mL [...] PRN TERRY BALDERRAMA MD documented in this encounterHighland District Hospital01-19-2023 Miscellaneous Notes* PT ROUTINE/REASSESSMENT/RECERT/CASE MGMT - Isela [...] summary for intervention/education details. documented in this encounterHighland District Hospital01-19-2023 Miscellaneous Notes* SN Routine - Britta Mantilla RN - 03/19/2022 9:03 AM EST SITUATION: Penitentiary routine visit completed today. spouse also present [...] ostomy care, CP assessment. documented in this encounterHighland District Hospital01-18-2023 History of Present illness Narrative* Russ Monteiro [...] well. Russ Monteiro MD documented in this encounterHighland District Hospital01-18-2023 Instructions* Patient Instructions* Russ Monteiro MD - 03/18/2022 12:00 PM EST BLOOD WORK TODAY. documented in this encounterHighland District Hospital01-15-2023 Miscellaneous Notes* SN Routine - Britta Mantilla RN - 03/15/2022 2:31 PM EST SITUATION: Penitentiary routine visit completed today. spouse also present [...] pouch change, CP assessment. documented in this encounterHighland District Hospital01-14-2023 Miscellaneous Notes* CARE COORDINATION - Savanna Galan RN - 03/14/2022 12:33 PM EST see case comm documented in this encounterHighland District Hospital01-12-2023 Miscellaneous Notes* Telephone Encounter - Leandro Cruz RN - 03/12/2022 12:[address]I Dutch Cheung; Patient was not independent with ostomy care prior to being readmitted to hospital on 03/02/22-03/10/22. He is being seen today per therapy for a resumption of home health care. He will also need a referral for fdc to continue ostomy instruction and care. Please have your office contact [facility] to place the SN EVAL order. We would like to be able to see him by tomorrow if possible. Thank you in advance for your review of this request. Leandro Cruz RN-[facility] for [facility]. documented in this encounterHighland District Hospital01-12-2023 Miscellaneous Notes* PT SOC/NORRIS/FOLLOW UP/OTHER - Estefany [...] Precautions: no lifting ASSESSMENT: [facility]. Reviewed and explained homecare [...] SNfor post ostomy care . T/c to [employer] Assistant Bhavna Cruz who obtained nursing orders See intervention summary for intervention/education details. documented in this encounterHighland District Hospital01-05-2023 Miscellaneous Notes* Telephone Encounter - Leandro Cruz RN - 03/05/2022 9:[address] Ramiro Cheung; This message is to alert you that your home health patient was admitted to [facility] on 03/02/22 for bilateral PE. All home health services have been placed on HOLD at this time. Leandro Cruz RN-[facility]. documented in this encounterHighland District Hospital01-04-2023 Miscellaneous Notes* Telephone Encounter - Tejal Hawkins LPN - 03/04/2022 10:24 AM EST Welcome Home Call: a. Date and Time: 10:24 AM 03/04/2022 b. Contact name/relationship: Marilu (Spouse) c. Have you been active with any Home Care company in the last 60 days(such as help with bathing, filling medications, checking your blood pressure) ? Yes, active with [facility]. d. Was patient given Flu shot this Season (After Oct,): No: na e. [facility] will be providing your care, are you agreeable to starting these services? yes (yes or no) f. Do you have any upcoming appointments in the next few days, or restrictions to your schedule? no g. Caregiver: Marilu (Spouse) h. Confirmed Visited Location and preferred #: [phone] Please keep our your medications both over the counter and prescribed out for the home care to review, your hospital discharge instructions and write down any questions you might have. In order to maintain a safe environment for our caregivers, [facility] requires anyanimals or weapons present in the home be located in a secured location. Our clinicians will call you the night before or the morning of the appointment. Their # may come up restricted but they'll leave a VM for you. In case you have any questions or concerns in the meantime, our # is [phone], option 5 Thank you for your time and have a great day. Tejal Hawkins LPN documented in this encounterHighland District Hospital01-04-2023 Miscellaneous Notes* Telephone Encounter - Tejal Hawkins LPN - 03/04/2022 10:22 AM EST Jermaine MENDEZ, PHD Please advise if you are agreeable to signing and following for [facility] services? Our Clinicians will be sending the Plan of Care to you for review and approval. They will reach out for any appropriate orders required to provide home care services for the patient. We are not able to initiate HHC services without a following provider. Home care clinicians may also obtain orders from [facility] Thank you and we would [...] care clinicians may also obtain orders from [facility] Thank you and we would be happy to answer any questions. Holly Rivera LPN Central Admissions Intake Nurse 03/03/2022 11:53 AM documented in this encounterHighland District Hospital01-03-2023 Miscellaneous Notes* HH CARE COORDINATION - Leandro Cruz RN - 03/03/2022 8:30 AM EST SN contacted Dr.I Dutch Cheung on 03/05/21 for the following: [facility]22 for bilateral PE's. documented in this encounterHighland District Hospital01-01-2023 Miscellaneous Notes* Telephone Encounter - Deborah Epps [...] speaks in single words) Protocols used: Chest Evra-RRCSV-GQ documented in this encounterHighland District Hospital12-30-2022 Hospital Discharge instructions Additional Instructions Follow-up with Dr. Cheung at [facility] in the next 1 to 2 weeks. Return with increased rectal bleeding, new or worsening symptoms.[facility] Work Phone: [phone]) 342-693112-29-2022 Miscellaneous Notes* PT EVALUATION - Estefany Stern, [...] Precautions: no lifting ASSESSMENT: [facility] evaluated [facility]. Reviewed and explained homecare [...] summary for intervention/education details. documented in this encounterHighland District Hospital12-28-2022 Miscellaneous Notes* SN SOC - Jovanna Heaton RN - 02/25/2022 9:35 AM EST SITUATION: Penitentiary SOC visit completed today. spouse also present during today's visit. patient reports the following: Allergies--reviewed Medications--full medication reconciliation completed Falls--None DME-Reviewed and added to chart BACKGROUND: Discharged/[facility]erral [facility]24/22 following treatment for Other [...] no s/s of infection noted, area is [employer]. Ostomy to RLQ noted, ostomy care completed, [...] care and wound care documented in this encounterHighland District Hospital12-19-2022 History of Past illness Narrative* Problem Noted [...] of this encounter (statuses as of 03/04/2022) [facility] of Past illness Narrative* Problem Noted [...] of this encounter (statuses as of 03/05/2022) [facility] of Past illness Narrative* Problem Noted [...] of this encounter (statuses as of 03/05/2022) [facility] of Past illness Narrative* Problem Noted [...] of this encounter (statuses as of 03/06/2022) [facility] of Past illness Narrative* Problem Noted [...] of this encounter (statuses as of 03/06/2022) [facility] of Past illness Narrative* Problem Noted [...] of this encounter (statuses as of 03/12/2022) [facility] of Past illness Narrative* Problem Noted [...] of this encounter (statuses as of 03/14/2022) [facility] of Past illness Narrative* Problem Noted [...] of this encounter (statuses as of 03/18/2022) [facility] of Past illness Narrative* Problem Noted [...] of this encounter (statuses as of 03/19/2022) [facility] of Past illness Narrative* Problem Noted [...] of this encounter (statuses as of 03/19/2022) [facility] of Past illness Narrative* Problem Noted [...] of this encounter (statuses as of 03/23/2022) [facility] of Past illness Narrative* Problem Noted [...] of this encounter (statuses as of 03/23/2022) [facility] of Past illness Narrative* Problem Noted [...] of this encounter (statuses as of 03/23/2022) [facility] Past illness Narrative* Problem Noted [...] of this encounter (statuses as of 03/25/2022) [facility] Past illness Narrative* Problem Noted [...] of this encounter (statuses as of 03/26/2022) [facility] Past illness Narrative* Problem Noted [...] of this encounter (statuses as of 03/26/2022) [facility] Past illness Narrative* Problem Noted [...] of this encounter (statuses as of 03/27/2022) [facility] Past illness Narrative* Problem Noted [...] of this encounter (statuses as of 03/31/2022) [facility] Narrative* Problem Noted [...] of this encounter (statuses as of 04/01/2022) [facility] Narrative* Problem Noted [...] of this encounter (statuses as of 04/03/2022) [facility] Narrative* Problem Noted [...] of this encounter (statuses as of 04/06/2022) [facility] Past illness Narrative* Problem Noted [...] of this encounter (statuses as of 04/07/2022) [facility] illness Narrative* Problem Noted [...] of this encounter (statuses as of 04/07/2022) [facility] Past illness Narrative* Problem Noted [...] of this encounter (statuses as of 04/08/2022) [facility] Past illness Narrative* Problem Noted [...] of this encounter (statuses as of 04/08/2022) [facility] Narrative* Problem Noted [...] of this encounter (statuses as of 04/09/2022) [facility] Narrative* Problem Noted [...] of this encounter (statuses as of 04/13/2022) [facility] Narrative* Problem Noted [...] of this encounter (statuses as of 04/14/2022) [facility] Narrative* Problem Noted [...] of this encounter (statuses as of 04/15/2022) [facility] Narrative* Problem Noted [...] of this encounter (statuses as of 04/17/2022) [facility] Narrative* Problem Noted [...] of this encounter (statuses as of 04/21/2022) [facility] Narrative* Problem Noted [...] of this encounter (statuses as of 04/22/2022) [facility] Narrative* Problem Noted [...] of this encounter (statuses as of 04/24/2022) [facility] Narrative* Problem Noted [...] of this encounter (statuses as of 04/24/2022) [facility] Narrative* Problem Noted [...] of this encounter (statuses as of 04/30/2022) [facility] Narrative* Problem Noted [...] of this encounter (statuses as of 05/20/2022) [facility] Narrative* Problem Noted [...] of this encounter (statuses as of 05/20/2022) [facility] Narrative* Problem Noted [...] of this encounter (statuses as of 05/20/2022) [facility] Narrative* Problem Noted [...] of this encounter (statuses as of 05/21/2022) [facility] Narrative* Problem Noted [...] of this encounter (statuses as of 05/21/2022) [facility] Narrative* Problem Noted [...] of this encounter (statuses as of 05/22/2022) [facility] Narrative* Problem Noted [...] of this encounter (statuses as of 05/25/2022) [facility] Narrative* Problem Noted [...] of this encounter (statuses as of 05/26/2022) [facility] Narrative* Problem Noted [...] of this encounter (statuses as of 05/29/2022) [facility] Narrative* Problem Noted [...] of this encounter (statuses as of 06/02/2022) [facility] Narrative* Problem Noted [...] of this encounter (statuses as of 06/05/2022) [facility] Narrative* Problem Noted [...] of this encounter (statuses as of 07/07/2022) [facility] Miscellaneous Notes* Telephone Encounter - Tejal Hawkins LPN - 02/11/2022 4:36 PM EST Per [facility] cm, Dr Cheung will follow [...] care clinicians may also obtain orders from [facility] Thank you and we would be happy to answer any questions. Tejal Hawkins LPN 02/11/2022 11:51 AM documented in this encounterHighland District Hospital12-14-2022 Miscellaneous Notes* Telephone Encounter - Radha Grady [...] Season (After Oct,): No: Patient refused e. [facility] will be providing your care, [...] maintain a safe environment for our caregivers, [facility] requires anyanimals or weapons present in the home be located in a secured location. Our clinicians will call you the night before or the morning of the appointment. Their # may come up restricted but they'll leave a VM for you. In case you have any questions or concerns in the meantime, our # is [phone], option 5 Thank you for your time and have a great day. Rahda Grady documented in this encounterHighland District Hospital12-05-2022 History of Present illness Narrative* Thiago Ordaz MD - 02/02/2022 12:55 PM EST I, Thiago Ordaz MD, was notified of and approve the order for transfusion of blood products for Jai Luna. Thiago Ordaz MD Assistant Office Manager, Critical Care Transport * Robert Bullock APRN.[facility] - 02/01/2022 6:45 PM EST Images from the original note were not included. Critical Care Transport Note Patient Name: Jai Luna Service Date: 02/01/2022 Referring Physician: Marie Accepting Physician: Ana Referring Facility: [facility]: ER Accepting Facility: [facility]: [id number] SUBJECTIVE/CHIEF COMPLAINT: Hemoperitoneum REASON FOR [...] rectal cancer s/p resection. He presented to [facility] ER on 02/01/2022 for evaluation of ABD pain. Per report, has history of rectal cancer, is s/p chemotherapy and resection w/ loop ileostomy placed at [facility] 01/27/22. Today, noted sudden acute onset [...] managing the patient requested transfer to the [facility] for tertiary and/or quaternary services unavailable at the referring facility. Patient condition at time of exam was: Acutely ill and critically ill. Due to the unique circumstances of the patient, it was determined that this was the closest, most appropriate facility by referring physician. The physician managing the patient requested the [facility] Critical Care Transport Team transport and treat the patient for the purpose of tertiary care, evaluation, and management of his GI condition(s). Air medical transport was requested to reduce the [id number]-[id number] time (21 minutes by air vs. approximately [...] RA General appearance: Severe distress, acutely ill, ANVIK HEENT: normocephalic, EOMI, PERRL (~3mm bilat.). Oropharynx [...] Blood Transfusion -- 1unit O-Pos. Whole Blood (#[id number]) - Jai Luna requires emergent blood transfusion as indicated by one of the following: Acute blood loss (known or suspected) with hemodynamic instability or other signs of shock with a Hgb eitherunknown or >7 where control of the hemorrhage source is not able to be obtained. - The risks, benefits, and alternatives to blood transfusion have been discussed with the patient or registered representative who cannot consent due to clinical urgency. - Jai Luna requires O+ WHOLE BLOOD. The indication being treatment of anemia and Other: hemorrhagic shock/hemoperitoneum. - The provider (Dr. Wynn and SICU MDs) at the receiving facility was notified that the patient received O+ whole blood. - Patient verified: Yes - Procedure/Site verified: Yes - Physician Notified: Justin Ordaz MD / Angel Bullock, ACADEMIC AFFAIRS MANAGER.FURNITURE INSPECTOR ASSESSMENT/PLAN: In short, Jai Luna is a [...] additional blood products. Appears to be alert (ANVIK so difficult to assess), protecting his airway [...] monitoring in transport. - Expedite transfer to [facility] for further SICU/surgical management. The transport was completed without significant incident or change in the patient's status. The patient was transported to the the [facility] by [employer] (Helicopter) for tertiary and/or quaternary evaluation and management of his Emergent and Critical Surgical condition(s). Upon arrival to the receiving facility, a qxfv-jr-ishp report was given to bedside nursing staff [...] Robert Bullock APRN.CNP Acute Care Nurse Practitioner [facility] Critical [facility] Transport Team documented in this encounterHighland District Hospital12-04-2022 History of Past illness Narrative* Problem Noted Date Resolved Date Respiratory insufficiency 02/01/20222021 Last Assessment & Plan: Assessment: extubated 02/05 Mild b/l GOYO atelectasis, satting 98-99% on RA 02/06 Requiring 2L NC to maintain O2 sat 97-99%. PLAN: -- Wean o2 as able -- Encourage OOB with PT, IS -- IV Lasix 40mg documented as of this encounter (statuses as of 02/11/2022) [facility] Procedure note* Robert Bullock APRN.CNP - 02/01/2022 [...] PLACEMENT: Sterile PRIMARY PROCEDURALIST: Robert Bullock CNP PARCEL POST DELIVERY(S): Milagros Malik RN PROCEDURE NARRATIVE Site Marked: [...] Robert Bullock APRN.CNP Acute Care Nurse Practitioner [facility] Critical Care Transport Team documented in this encounterHighland District Hospital12-02-2022 Miscellaneous Notes* CARE COORDINATION - Leandro Cruz RN - 01/30/2022 12:00 PM EST SN contacted Brenda on 01/30/22 for the following: ileostomy supplies Coloplast 1 piece drainable pouch #[id number] (1) box elastic barriers (1) box Chamorro Protective seals (1) box adhesive remover (1) loaf 4x4 non woven gauze documented in this encounterHigh[facility]12-02-2022 Miscellaneous Notes* SN SOC - Britta Mantilla RN - 01/30/2022 9:21 AM EST SITUATION: Penitentiary SOC visit completed today. spouse also present [...] and peristomal skin condition. documented in this encounterHighland [facility] Hospital11-30-2022 Miscellaneous Notes* Telephone Encounter - Radha Grady [...] Season (After Oct,): No: Patient refused e. [facility] will be providing your care, [...] maintain a safe environment for our caregivers, [facility] requires anyanimals or weapons present in the home be located in a secured location. Our clinicians will call you the night before or the morning of the appointment. Their # may come up restricted but they'll leave a VM for you. In case you have any questions or concerns in the meantime, our # is [phone], option 5 Thank you for your time and have a great day. Radha Grady documented in this encounterHighland District Hospital11-15-2022 Miscellaneous Notes* Telephone Encounter - La Calvillo RN - 01/13/2022 10:03 AM EST Per provider request. Called patient. Spoke to Marilu and instructed that patient is to stop hisPlavix 5 days prior to surgery. understood instructions and will share with Chaka. La Calvillo RN January 13, 2022 10:05 AM documented in this encounterHighland District Hospital11-15-2022 Miscellaneous Notes* Telephone Encounter - Kush Hutchinson Coord - 01/13/2022 9:25 AM EST Plavix instructions and Outside Cardiology office note has been scanned in. * Telephone Encounter - Calista Mixon RN - 01/12/2022 3:23 PM EST Can someone call this patient's ophthalmologist (Dr. Helen Roa at [place])? I requested optimization and Plavix instructions. He was seen last week on 01/09. Called Dr. Roa's office at [phone]. Deborah from that office states that the letter was faxed to [facility] one hour ago. documented in this encounterHighland [facility] Hospital11-09-2022 History of Present illness Narrative* Jovanna Fuentes [...] 2022 TIME: 11:49 AM documented in this encounterHighland District Hospital11-09-2022 History of Present illness Narrative* RT Felice(R) [...] 07, 2022 12:26 PM documented in this encounterHighland District Hospital11-09-2022 Instructions* Patient Instructions* Kristel John PA-C - 01/07/2022 8:18 AM EST PATIENT PREOPERATIVE INSTRUCTIONS Ramiro Cheung MD has scheduled you for your procedure at this surgery center: [facility] [place] Scheduling Office: [phone] --[address] [place] [address]. Please read below carefully for your personalized [...] or other anticoagulants without consulting with your ophthalmologist or prescribing physician. - Stop Vitamin E, [...] Procedures: - YOU MUST HAVE A RESPONSIBLE CORSETS SALESPERSON TAKE YOU HOME. A HEALTH LEAD OR SENIOR TECH MANUFACTURING ENGINEERING CANNOT BE MADE A RESPONSIBLE CORSETS SALESPERSON. - We recommend that a responsible person [...] call the Wednesday before. Your surgeon s scheduler conveyor will tell you what time to call the office. - If you have not reached the departmental scheduler conveyor by 5 P.M., call [phone] after 5 P.M. the day before your surgery. Please be aware that emergency situations arise, which may delay or change your surgical time. If this happens, we will notify you as soon as possible and regret any inconvenience. If you already have an Advance Directive, please fax a copy to [phone] or email to for it to be [...] day. Kristel John PA-C documented in this encounterHighland District Hospital11-09-2022 History and physical note * Kristel John [...] Coronary atherosclerosis of unspecified type of vessel, hualapai or graft Coronary artery disease Diverticulosis of [...] -patient to schedule pre-op appointment with his ophthalmologist, Dr. Helen Roa, as he has not [...] Uses exercise equipment daily at home and golPopdust in the summer ASA Class: 3 ANESTHESIA [...] patient medical history and last F/U with ophthalmologist in 2019. Recommends seeing cardiology prior to surgery, NT Pro BNP, and Troponin today. Cardiology appointment scheduled for tomorrow, patient refused appointment, stated he could not come back to [place] tomorrow. Patient will make an appointment with his ophthalmologist, Dr. Helen Roa. Letter sent to ophthalmologist for optimization and Plavix instructions. The Following [...] 2022 TIME: 8:32 AM documented in this encounterHighland District Hospital10-12-2022 History of Present illness Narrative* I Dutch [...] done yet. 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 He completed Modified Charlene chemoradiation on July 21, completed restaging in August, and was presented to [facility]. It was recommended that he follow [...] PT called and expecting a call from [facility]. After initial visit at [facility] likely will get the treatment in [place] and come back for surgery if indicated. [...] closed Resting tone: NORMAL Squeeze tone: NORMAL Manager Drive present: Yes, Maricruz Rudolph Proctoscopy: The patient [...] of treatment plan: moderate documented in this encounterHighland District Hospital07-28-2022 Miscellaneous Notes* Telephone Encounter - Smitha Dawson RN - 09/25/2021 9:14 AM EDT Called and spoke with patient Advised of [facility] TB recommendations ppears to have good response, but not complete response. recommend follow up in 3 months with repeat MRI and flexi sig appt scheduled today for flex sig, will request add on for MRI documented in this encounterHighland District Hospital07-20-2022 History of Present illness Narrative* RT Tray(Fran) [...] 2021 TIME: 4:10 PM documented in this encounterHighland District Hospital07-20-2022 History of Present illness Narrative* Ramiro Cheung [...] PT called and expecting a call from [facility]. After initial visit at [facility] likely will get the treatment in [place] and come back for surgery if indicated. 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 He completed in july 21. [...] final recommendations and treatment documented in this encounterHighland District Hospital07-01-2022 History of Present illness Narrative* Marisela Rome [...] minutes Marisela Rome MD documented in this encounterHighland District Hospital05-23-2022 Nurse Note* Flavia Bernabe RN - 07/21/2021 2:14 PM EDT Written discharge instructions given and reviewed with patient. Patient verbalizes understanding. Encouraged to call with any questions or concerns. Instruction for 4 week phone call follow up appointment given per Dr. Rome. documented in this encounterHighland District Hospital05-23-2022 History of Present illness Narrative* Marisela Rome MD, MD - 07/21/2021 12:00 AM EDT JAI LUNA [id number] : 1950 07/21/2021 [facility] Department of Radiation Oncology RADIATION ONCOLOGY - [...] Signed cc: Helen Cheung documented in this encounterHighland District Hospital05-20-2022 Miscellaneous Notes* Telephone Encounter - Linda Gregory Pss - 07/18/2021 1:11 PM EDT Patient will call to schedule MRI and Dr. Cheung follow up on same day. documented in this encounterHighland District Hospital05-20-2022 History of Present illness Narrative* Alexia Rao APRN.FURNITURE INSPECTOR - 07/18/2021 12:31 PM EDT Chief Complaint [...] k/uL 0.52 (L) 0.47 (L) 0.38 (L) Gosper% % 20.9 17.7 17.3 Abs Gosper <0.87 k/uL 0.68 0.72 0.55 Eosin% % [...] with the plan. Discussed case with Dr. Lakhain who agrees with treatment plan. All documentation from previous visit of 07/04/21-Dr. Lakhani/myself was copied and pasted, documentation has been reviewed and edited as necessary for today's visit. Alexia Rao APRN.CHELSIE documented in this encounterHighland District Hospital05-17-2022 History of Present illness Narrative* Marisela Rome [...] planned. Marisela Rome MD documented in this encounterHighland District Hospital05-17-2022 Nurse Note* Krys Stafford RN - 07/15/2021 2:08 PM EDT Radiation Therapy - Nursing Note (OTV) PATIENT NAME: Jai Luna PATIENT July 15, 2021 [facility] FACILITY/LOCATION: [place] NURSING NOTE TYPE: pelvis Subjective Data See pain assessment Additional Data Do you want to see a Electro Optics Engineer? No Status: Patient is male Stress Scale: On a scale of 0 to 10, what number best describes how much distress you have experienced in the past week?(0 being no distress and 10 being extreme distress) 4 Social work notified: Pt denied need to see clinical social work aide at this time. Nursing Assessment Fatigue: increased [...] by: Krys Stafford RN documented in this encounterHighland District Hospital05-12-2022 Miscellaneous Notes* Telephone Encounter - Krys Stafford RN - 07/10/2021 1:[address] Rome reviewed results. Pt advised to tile picker Cipro a t Pharmacy. Pt states that he has not been using Zofran and has been advised to avoid using it during treatement with Cipro due to a possible drug interaction. Pt verbalized understanding and will tile picker medication today. Pt uses [facility] in [place]. * Telephone Encounter - Flavia Bernabe RN [...] is agreeable to plan. documented in this encounterHighland District Hospital05-10-2022 History of Present illness Narrative* Marisela Rome [...] planned. Marisela Rome MD documented in this encounterHighland District Hospital05-10-2022 Nurse Note* Flavia Bernabe RN - 07/08/2021 1:38 PM EDT Radiation Therapy - Nursing Note (OTV) PATIENT NAME: Jai Luna PATIENT July 08, 2021 [facility] FACILITY/LOCATION: [place] NURSING NOTE TYPE: RECTAL Subjective Data SEE pain assessment Additional Data Do you want to see a Electro Optics Engineer? No Status: Patient is male Stress Scale: [...] by: Flavia Bernabe RN documented in this encounterHighland District Hospital05-09-2022 History of Present illness Narrative* Enid Garsia [...] Tolerated well without issue documented in this encounterHighland District Hospital05-09-2022 History of Present illness Narrative* Enid Garsia RN - 07/07/2021 10:52 AM EDT . documented in this encounterHighland District Hospital05-09-2022 Miscellaneous Notes* Telephone Encounter - Rabia Cash [...] not signed. Thank you documented in this encounterHighland District Hospital05-06-2022 History of Present illness Narrative* Alexia Rao [...] 4.00 k/uL 1.11 0.90 (L) 0.52 (L) Gosper% % 8.1 18.4 20.9 Abs Gosper <0.87 k/uL 0.38 0.67 0.68 Eosin% % [...] visit. Alexia Rao APRN.CHELSIE documented in this encounterHighland District Hospital05-03-2022 Miscellaneous Notes* Telephone Encounter - Helen Lakhani [...] you. Josselyn Stanford, PharmD Clinical Pharmacist, Oncology [facility] P: , F: Pool: P [facility] Pool #: [id number] documented in this encounterHighland District Hospital05-03-2022 Nurse Note* Krys Stafford RN - 07/01/2021 1:47 PM EDT Radiation Therapy - Nursing Note (OTV) PATIENT NAME: Jai Luna PATIENT July 01, 2021 [facility] FACILITY/LOCATION: [place] NURSING NOTE TYPE: RECTAL Subjective Data See pain assessment Additional Data Do you want to see a Electro Optics Engineer? No Status: Patient is male Stress Scale: On a scale of 0 to 10, what number best describes how much distress you have experienced in the past week?(0 being no distress and 10 being extreme distress) 4 Social work notified: Pt denied need to see clinical social work aide at this time. Nursing Assessment Fatigue: increased [...] by: Krys Stafford RN documented in this encounterHighland District Hospital05-03-2022 History of Present illness Narrative* Marisela Rome [...] planned. Marisela Rome MD documented in this encounterHighland District Hospital05-03-2022 History of Present illness Narrative* Graciela Malin (Airport Operations Officer) - 07/01/2021 12:11 PM EDT [facility] Refill Assessment Medication(s): Capecitabine x 2 Therapy continues to be appropriate for disease, patient response, and medical condition. Verification of therapeutic benefit and effectiveness with current therapy. Adverse events, barriers in adherence, and side effects assessed and addressed. Will proceed with refill with no changes. [facility] Visit Assessment - Hematology/Oncology: Assessment to use: Refill Non-Clinical Assessment: Patient confirmed: Yes Med/dose confirmed: Yes Supplies needed: N/A Missed doses: No Estimated days supply on hand: 3 Copay amount: 0 Payment confirmed: Yes Address confirmed: Yes Delivery method: FedEx Delivery address: [address] [place] [id number] Delivery date: 07/03/2021 Patient has questions: No Additional questions, comments, concerns: Patient stated he just started week 4 this week 06/30. Hestated to his understanding he will be doing 6 weeks but MD had not decided on it yet. Will set up remainder of what we have for week 5 and will have [facility] reach out to MD office to confirm [...] limited to bone marrow suppression, cardiotoxicity, diarrhea, oclz-coy-hbtu syndrome, hepatotoxicity Monitoring: - CBC with differential, [...] Estimated Treatment Duration: 5 weeks Graciela Malin (Airport Operations Officer) documented in this encounterHighland District Hospital04-26-2022 Nurse Note* Flavia Bernabe RN - 06/24/2021 2:02 PM EDT Radiation Therapy - Nursing Note (OTV) PATIENT NAME: Jai Luna PATIENT June 24, 2021 [facility] FACILITY/LOCATION: [place] NURSING NOTE TYPE: RECTAL Subjective Data no complaints today Additional Data Do you want to see a Electro Optics Engineer? No Status: Patient is male Stress Scale: [...] by: Flavia Bernabe RN documented in this encounterHighland District Hospital04-26-2022 History of Present illness Narrative* Marisela Rome [...] planned. Marisela Rome MD documented in this encounterHighland District Hospital04-20-2022 History of Present illness Narrative* Helen Lakhani [...] (97.5 F), weight 89.4 kg (197 lb), [id number] %. Well-appearing and in no acute distress. [...] No jaundice or rash. No petechiae. NEUROLOGIC: fiberglass quality technician II-XII are grossly intact. No focal motor [...] Abs Lymph 1.00 - 4.00 k/uL 1.11 Gosper% % 8.1 Abs Gosper <0.87 k/uL 0.38 Eosin% % 3.2 Abs [...] care. Helen Lakhani DO documented in this encounterHighland District Hospital04-19-2022 Miscellaneous Notes* Addendum Note - Helen Lakhani [...] protocol. Amelia Souza RN documented in this encounterHighland District Hospital04-19-2022 History of Present illness Narrative* Marisela Rome [...] planned. Marisela Rome MD documented in this encounterHighland District Hospital04-19-2022 Nurse Note* Krys Stafford RN - 06/17/2021 1:57 PM EDT Radiation Therapy - Nursing Note (OTV) PATIENT NAME: Jai Luna PATIENT June 17, 2021 [facility] FACILITY/LOCATION: [place] NURSING NOTE TYPE: RECTAL Subjective Data see pain assessment Additional Data Do you want to see a Electro Optics Engineer? No Status: Patient is male Stress Scale: [...] by: Krys Stafford RN documented in this encounterHighland District Hospital04-18-2022 History of Present illness Narrative* Enid Garsia [...] Patient tolerated procedure well. documented in this encounterHighland District Hospital04-13-2022 Miscellaneous Notes* Telephone Encounter - Shamar Stafford - 06/11/2021 1:06 PM EDT Working Cancer Piotr. Patient is active with Medicare A and B as well as [facility], and is not expected to have any financial responsibility for treatment in [facility]. There are no open foundations for Dx. Spoke with patient and advised of navigator services and insurance. Patient stated understanding and advised that they are ok at this time. documented in this encounterHighland District Hospital04-11-2022 Miscellaneous Notes* Telephone Encounter - Rabia Cash [...] Mitomycin infusion. Please advise. documented in this encounterHighland District Hospital04-10-2022 Miscellaneous Notes* Telephone Encounter - Nica Cyr [...] need to enter his PCP's information into Taskforce. Helen Lakhani DO documented in this encounterHighland District Hospital04-08-2022 History of Present illness Narrative* Helen Lakhani [...] No jaundice or rash. No petechiae. NEUROLOGIC: fiberglass quality technician II-XII are grossly intact. No focal motor [...] which included preparing to see the patient, ohyg-gq-qhgx patient care, completing clinical documentation, obtaining and/or reviewing separately obtained history, performing a medically appropriate examination, counseling and educating the pat ient/family/caregiver, ordering medications, tests, or procedures, independently interpreting results (not separately reported) and communicating results to the patient/family/caregiver. Helen Lakhani DO documented in this encounterHighland District Hospital04-05-2022 Miscellaneous Notes* Telephone Encounter - Josselyn Stanford RPh - 06/03/2021 3:45 PM EDT Queued up prescription for Xeloda for 1650mg BID dosing per our conversation for 5 weeks of chemoRT. Please review and sign if this change is acceptable. Thank you. 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 Was approved? unknown Signed by: Krys Stafford RN * Krys Stafford RN - 06/02/2021 9:15 AM EDT Radiation Therapy - Nursing Note (Consult) PATIENT NAME: Jai Luna PATIENT June 02, 2021 [facility] FACILITY/LOCATION: [place] Chief Complaint: consult Reason for visit: Consult. Referring physician: Internal provider Dr Huitron Subjective Data: pt reports rectal bleeding Additional Data Do you want to see a Electro Optics Engineer? No Are you interested in information about fertility? No Status: Patient is male Stress Scale: On a scale of 0 to 10, what number best describes how much distress you have experienced in the past week?(0 being no distress and 10 being extreme distress) 0 Social work notified: Pt denied need to see clinical social work aide at this time. Radiation therapy teaching initiated. [facility] external beam radiation therapy handout given. Departmentphone numbers given & patient encouraged to verbalize questions. SIGNED by: Krys Stafford RN documented in this encounterHighland District Hospital04-04-2022 History of Present illness Narrative* Enid Natarajan (Director Of Dementia Operations) - 06/02/2021 9:17 AM EDT [facility] received prescription(s) for Capecitbine from Dr. Bowens's office. Benefits investigation was conducted, indicating that a prior authorization is not required at this time per patient's plan with Medicare B. Prescriptions will now be processed through [facility] Specialty for determination of next steps. Enid Natarajan [facility] Oncology P: [phone] F: [phone] [email or web address] documented in this encounterHighland District Hospital04-04-2022 History of Present illness Narrative* Marisela Rome [...] Coronary atherosclerosis of unspecified type of vessel, hualapai or graft Coronary artery disease Diverticulosis of [...] PROSTATE SURGERY HX STRABISMUS RECESSION/RESCJ 1 [facility] Strabismus surgery TONSILLECTOMY [...] rectum. His case was discussed at the [facility] main campus tumor board and chemoradiation treatment per anal cancer protocol was recommended. I agree. I explained the rationale, benefits, alternative management options and potential complications of radiation treatment to the patient and he understands and agrees to proceed. It was explained and understood that other personnel such as radiation therapists, welder fabricator, and physicists will participate in planning and [...] Marisela Rome MD cc: Susu Talia Huitron [id number] [address] [facility] [id number] Helen Lakhani [facility] Ramiro Cheung documented in this encounterHighland District Hospital04-04-2022 History of Present illness Narrative* Marisela Rome MD, MD - 06/02/2021 12:00 AM EDT JAI LUNA [id number] 06/02/2021 [facility] Department of Radiation Oncology [facility] RADIATION ONCOLOGY SIMULATION NOTE DATE OF SIMULATION: [...] Rome M.D./ 29:17 AM documented in this encounterHighland District Hospital04-04-2022 History of Present illness Narrative* Marisela Rome MD, MD - 06/02/2021 12:00 AM EDT JAI LUNA [id number] 06/02/2021 [facility] Department of Radiation Oncology Treatment Planning Note [...] Rome M.D. 21:47 PM documented in this encounterHighland District Hospital04-01-2022 History of Present illness Narrative* Enid Natarajan (Director Of Dementia Operations) - 05/30/2021 3:12 PM EDT [facility] received prescription(s) for Capecitabine from Dr. Bowens's office. Benefits investigation was conducted, indicating that a prior authorization is not required at this time per patient's plan with Medicare. Prescriptions will now be processed through [facility] Specialty for determination of next steps. 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 However, he lives in [place] and would like to receive his cares [...] responsible provider. cc: I Dutch Cheung [address] [facility] [address] Caty Bowens [facility] Marisela Rome [facility] documented in this encounterHighland District Hospital03-31-2022 Nurse Note* Bertha Orosco MA - 05/29/2021 10:06 AM EDT Additional intake questions: Has the patient had fever, nausea, vomiting, diarrhea, constipation, fatigue for > 1 week? Yes, constipation (day of last BM TODAY) Does the patient have a decreased appetite? No Does patient want to see a Electro Optics Engineer? Unable to assess due to N/A (yes [...] Work or Resource Center documented in this encounterHighland District Hospital03-31-2022 History of Present illness Narrative* Caty Bowens MD - 05/29/2021 10:[address] [facility] ONCOLOGY CLINICAL NOTE PATIENT NAME: Jai Luna DATE OF : 1950 CLINIC NO.: [id number] DATE OF SERVICE: May 29, 2021 REFERRING PHYSICIAN: Ramiro Cheung [address] [facility] [address] PRIMARY CARE PHYSICIAN: No Pcp CONSULTATION REGARDING: [...] He underwent EUA and rebiopsy by Dr. Chueng on 05/06/2021. Pathology confirmed invasive moderately differentiated [...] no history of cancer SH: Lives in [place], [place]. . 1 daughter. Former smoker (30 [...] to get treatment closer to home at [place]. I will make the referral today to regional oncology at [place]. We discussed treatment with Charlene protocol with [...] Huitron - consult to regional oncology at [facility] - labs: DPYD testing done today 2. Colorectal cancer screening for family members - recommend starting at age 40 Thank you for the courtesy of this consultation. I spent 60 minutes on the date of this encounter providing and coordinating patient care including >50% of that time spent providing [id number] patient care. Caty Bowens MD GI Medical Oncologist [facility] Newman cc: I Dutch Cheung [id number] [facility] [id number] [facility] History of Present illness Narrative* Mr. 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, unspecified site [facility]* Diagnosis Prostate cancer (HCC)- Primary Malignant neoplasm of prostate 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 [facility]* Diagnosis Rectal malignant neoplasm (HCC)- Primary Malignant neoplasm of rectum 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 [facility]* Diagnosis Rectal malignant neoplasm (HCC)- Primary Malignant neoplasm of rectum [facility]* Diagnosis 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, unspecified site [facility] noteNo assessment information availableWSelect Medical Special[facility], Inc Work Phone: Evaluation note* Diagnosis 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, unspecified site [facility]* Diagnosis 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, unspecified site [facility]* Diagnosis Rectal malignant neoplasm (HCC)- Primary Malignant neoplasm of rectum Dysuria [facility]* Diagnosis Rectal malignant neoplasm (HCC)- Primary Malignant neoplasm of rectum [facility]* Diagnosis 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, unspecified site [facility]* Diagnosis Anal squamous cell [...] anus, unspecified site [facility] Diagnosis Rectal malignant [...] neoplasm of rectum [facility] Diagnosis Pre-operative clearance- Primary Preoperative examination, unspecified [facility]* Diagnosis Pre-op evaluation- Primary Preoperative examination, unspecified Atherosclerosis of coronary artery bypass graft of [place] heart without angina pectoris Bilateral carotid artery stenosis Occlusion and stenosis of carotid artery without mention of cerebral infarction Primary hypertension Unspecified essential hypertension Shortness of breath Shortness of breath 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 Essential hypertension Unspecified essential hypertension 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 Dyslipidemia Other and unspecified hyperlipidemia [facility]* Diagnosis Rectal cancer (HCC) Malignant neoplasm of rectum Malignant neoplasm of rectum (HCC) Malignant neoplasm of rectum [facility]* Diagnosis Onset Date Resolution Status Dilated aortic root acute Atherosclerotic heart diseas e of [place] coronary artery without angina pectoris chronic Bilateral carotid artery stenosis chronic Dyslipidemia chronic Essential hypertension chron ic Peripheral vascular disease chronic [facility] Work Phone: Evaluation note* Diagnosis Rectal cancer (HCC)- Primary Malignant neoplasm of rectum [facility]* Diagnosis Anemia, unspecified type- Primary Pulmonary embolism and infarction (HCC) Other pulmonary embolism and infarction Hypokalemia Hypopotassemia 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) Ileostomy status Generalized weakness Other malaise and fatigue [facility]* Diagnosis History of venous thromboembolism- Primary Personal history of venous thrombosis and embolism Presence of IVC filter Other postprocedural status Acute blood loss anemia Acute posthemorrhagic anemia Rectal cancer (HCC) Malignant neoplasm of rectum Compression neuropathy Mononeuritis of unspecified site [facility]* Diagnosis Postoperative state- Primary Other postprocedural status [facility]* Diagnosis 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)- Primary Attention to ileostomy [facility]* Diagnosis Rectal malignant neoplasm [...] Attention to ileostomy [facility] Diagnosis Encounter for therapeutic drug monitoring- Primary 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) Attention to ileostomy [facility] Diagnosis Serum potassium elevated- Primary Hyperpotassemia 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) Attention to ileostomy [facility]* Diagnosis Pre-op evaluation- Primary Preoperative examination, unspecified 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, unspecified whether [place] or transplanted heart (HCC) Pulmonary embolism and infarction (HCC) Other pulmonary embolism and infarction Bilateral carotid artery stenosis Occlusion and stenosis of carotid artery without mention of cerebral infarction 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)- Primary Attention to ileostomy 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) Attention to ileostomy [facility]* Diagnosis 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)- Primary Attention to ileostomy 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) Attention to ileostomy [facility]* Diagnosis History of rectal cancer- Primary Personal history of malignant neoplasm of rectum, rectosigmoid junction, and anus 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) Attention to ileostomy 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) Attention to ileostomy [facility]* Diagnosis History of [...] Attention to ileostomy [facility]* Diagnosis 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) Attention to ileostomy Preoperative examination Preoperative examination, unspecified 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) Attention to ileostomy [facility] Diagnosis Iron deficiency anemia, unspecified iron [...] Attention to ileostomy [facility]* Diagnosis Acute deep vein thrombosis (DVT) of proximal vein of left lower extremity (HCC)- Primary [facility]* Diagnosis Acute deep vein thrombosis (DVT) of proximal vein of left lower extremity (HCC)- Primary [facility]* Diagnosis Acute deep vein thrombosis (DVT) of proximal vein of left lower extremity (HCC)- Primary [facility]* Diagnosis Acute deep vein thrombosis (DVT) of proximal vein of left lower extremity (HCC)- Primary [facility]* Diagnosis Deep vein thrombosis (DVT) of both lower extremities, unspecified chronicity, unspecified vein (HCC)- Primary 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) Chronic venous embolism and thrombosis of deep vessels of distal lower extremity [facility]* Diagnosis Deep vein thrombosis (DVT) of both lower extremities, unspecified chronicity, unspecified vein (HCC)- Primary Localized edema Edema [facility]* Diagnosis 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)- Primary S/P IVC filter Other postprocedural status Current use of intermodal customer service anticoagulation Long-term (current) use of anticoagulants Bruit of right carotid artery Atherosclerosis of aorta (HCC) Atherosclerosis of aorta [facility]* Diagnosis Acute deep vein thrombosis (DVT) of proximal vein of left lower extremity (HCC)- Primary documented in this encounter [facility] note* Diagnosis Acute deep vein thrombosis (DVT) of proximal vein of left lower extremity (HCC)- Primary [facility]* Diagnosis Acoustic neuroma ([facility]/HCC) Benign neoplasm of cranial nerves documented in this encounter [facility] Work Phone: Evaluation note* Diagnosis Acute deep vein thrombosis (DVT) of proximal vein of left lower extremity (HCC)- Primary [facility]* Diagnosis Left arm pain- Primary Pain in limb documented in this encounter [facility] note* Diagnosis Ingrown nail of great toe- Primary [facility]* Diagnosis Pain in left arm- Primary [facility]* Diagnosis Onset Date Resolution Status Dilated aortic root acute Atherosclerotic heart diseas e of [place] coronary artery without angina pectoris chronic Bilateral carotid artery stenosis chronic Dyslipidemia chronic Essential hypertension chron ic Peripheral vascular disease chronic 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 Claudication of left lower extremity chronic 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 [facility] Work Phone: Evaluation note* Diagnosis Pain in left arm documented in this encounter [facility] note* Diagnosis Primary osteoarthritis of left shoulder- Primary Primary localized osteoarthrosis, shoulder region Calcific tendinitis of left shoulder Calcifying tendinitis of shoulder [facility]* Diagnosis Rectal bleeding- Primary Hemorrhage of rectum and anus History of rectal cancer Colorectal anastomotic stricture documented in this encounter [facility]* Diagnosis History of rectal cancer- Primary Personal history of malignant neoplasm of rectum, rectosigmoid junction, and anus documented in this encounter [facility] note* Diagnosis History of rectal cancer- Primary Personal history of malignant neoplasm of rectum, rectosigmoid junction, and anus documented in this encounter [facility] note* Diagnosis History of rectal cancer Personal history of malignant neoplasm of rectum, rectosigmoid junction, and anus History of rectal cancer- Primary Personal history of malignant neoplasm of rectum, rectosigmoid junction, and anus History of rectal cancer Personal history of malignant neoplasm of rectum, rectosigmoid junction, and anus documented [facility] this [facility]* Diagnosis Preoperative examination- Primary Preoperative examination, unspecified History of rectal cancer Personal history of malignant neoplasm of rectum, rectosigmoid junction, and anus 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 Completed by Dr. Reynolds at [facility] on Plavix and ASA. * Assessment & [...] 2/2 acoustic neuroma. 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 Bilateral carotid artery stenosis Occlusion and stenosis of carotid artery without mention of cerebral infarction Status post coronary artery bypass graft Postsurgical aortocoronary bypass status Essential hypertension Unspecified essential hypertension Pre-operative examination Preoperative examination, unspecified Pre-op evaluation- Primary Preoperative examination, unspecified Atherosclerosis of coronary artery bypass graft of [place] heart without angina pectoris Bilateral carotid artery [...] bypass graft with angina pectoris, unspecified whether [place] or transplanted heart (HCC) Pulmonary embolism and [...] bypass graft with angina pectoris, unspecified whether [place] or transplanted heart (HCC) History of pulmonary [...] Primary Ileostomy status [facility] Diagnosis 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 Bilateral carotid artery stenosis Occlusion and stenosis of carotid artery without mention of cerebral infarction Status post coronary artery bypass graft Postsurgical aortocoronary bypass status Essential hypertension Unspecified essential hypertension Pre-operative examination Preoperative examination, unspecified Pre-op evaluation- Primary Preoperative examination, unspecified Atherosclerosis of coronary artery bypass graft of [place] heart without angina pectoris Bilateral carotid artery [...] bypass graft with angina pectoris, unspecified whether [place] or transplanted heart (HCC) Pulmonary embolism and [...] bypass graft with angina pectoris, unspecified whether [place] or transplanted heart (HCC) History of pulmonary [...] joint, shoulder region [facility] Diagnosis 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 Bilateral carotid artery stenosis Occlusion and stenosis of carotid artery without mention of cerebral infarction Status post coronary artery bypass graft Postsurgical aortocoronary bypass status Essential hypertension Unspecified essential hypertension Pre-operative examination Preoperative examination, unspecified Pre-op evaluation- Primary Preoperative examination, unspecified Atherosclerosis of coronary artery bypass graft of [place] heart without angina pectoris Bilateral carotid artery [...] bypass graft with angina pectoris, unspecified whether [place] or transplanted heart (HCC) Pulmonary embolism and [...] bypass graft with angina pectoris, unspecified whether [place] or transplanted heart (HCC) History of pulmonary [...] thrombosis and embolism [facility] Diagnosis Acoustic neuroma (Multi) Benign neoplasm of cranial nerves documented in this encounter [facility] Work Phone: Evaluation note* Diagnosis 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 Bilateral carotid artery stenosis Occlusion and stenosis of carotid artery without mention of cerebral infarction Status post coronary artery bypass graft Postsurgical aortocoronary bypass status Essential hypertension Unspecified essential hypertension Pre-operative examination Preoperative examination, unspecified Pre-op evaluation- Primary Preoperative examination, unspecified Atherosclerosis of coronary artery bypass graft of [place] heart without angina pectoris Bilateral carotid artery [...] bypass graft with angina pectoris, unspecified whether [place] or transplanted heart Pulmonary embolism and infarction [...] bypass graft with angina pectoris, unspecified whether [place] or transplanted heart History of pulmonary embolism [...] of ileostomy (HCC) [facility] Diagnosis 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 Bilateral carotid artery stenosis Occlusion and stenosis of carotid artery without mention of cerebral infarction Status post coronary artery bypass graft Postsurgical aortocoronary bypass status Essential hypertension Unspecified essential hypertension Pre-operative examination Preoperative examination, unspecified Pre-op evaluation- Primary Preoperative examination, unspecified Atherosclerosis of coronary artery bypass graft of [place] heart without angina pectoris Bilateral carotid artery [...] bypass graft with angina pectoris, unspecified whether [place] or transplanted heart Pulmonary embolism and infarction [...] bypass graft with angina pectoris, unspecified whether [place] or transplanted heart History of pulmonary embolism [...] anus, unspecified site [facility] Diagnosis 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 Bilateral carotid artery stenosis Occlusion and stenosis of carotid artery without mention of cerebral infarction Status post coronary artery bypass graft Postsurgical aortocoronary bypass status Essential hypertension Unspecified essential hypertension Pre-operative examination Preoperative examination, unspecified Pre-op evaluation- Primary Preoperative examination, unspecified Atherosclerosis of coronary artery bypass graft of [place] heart without angina pectoris Bilateral carotid artery [...] bypass graft with angina pectoris, unspecified whether [place] or transplanted heart Pulmonary embolism and infarction [...] bypass graft with angina pectoris, unspecified whether [place] or transplanted heart History of pulmonary embolism [...] Attention to ileostomy [facility] Diagnosis 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 Bilateral carotid artery stenosis Occlusion and stenosis of carotid artery without mention of cerebral infarction Status post coronary artery bypass graft Postsurgical aortocoronary bypass status Essential hypertension Unspecified essential hypertension Pre-operative examination Preoperative examination, unspecified Pre-op evaluation- Primary Preoperative examination, unspecified Atherosclerosis of coronary artery bypass graft of [place] heart without angina pectoris Bilateral carotid artery [...] bypass graft with angina pectoris, unspecified whether [place] or transplanted heart Pulmonary embolism and infarction [...] bypass graft with angina pectoris, unspecified whether [place] or transplanted heart History of pulmonary embolism [...] Attention to ileostomy [facility] Diagnosis 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 Bilateral carotid artery stenosis Occlusion and stenosis of carotid artery without mention of cerebral infarction Status post coronary artery bypass graft Postsurgical aortocoronary bypass status Essential hypertension Unspecified essential hypertension Pre-operative examination Preoperative examination, unspecified Pre-op evaluation- Primary Preoperative examination, unspecified Atherosclerosis of coronary artery bypass graft of [place] heart without angina pectoris Bilateral carotid artery [...] bypass graft with angina pectoris, unspecified whether [place] or transplanted heart Pulmonary embolism and infarction [...] bypass graft with angina pectoris, unspecified whether [place] or transplanted heart History of pulmonary embolism [...] of ileostomy (HCC) [facility]* Mr. Luna [...] has not had any changes in hearing. [id number] 0244 Work Phone: Patient's home Plan of care note* Visit Details Visit Type -SN SOC Discipline -Penitentiary Problems Problem Description Start Date Status Goals [...] and ostomy precautions. [facility]* Visit Details Visit Type -SN SOC Discipline -Penitentiary Problems Problem Description Start Date Status Goals [...] Wound type (etiology): Surgical Wound Order: Leave [employer], monitor for s/s of infection Frequency: daily [...] & symptom reporting. [facility]* Visit Details [...] and written instructions. [facility] this [facility]* Visit Details [...] home exercise program. documented in this encounter [facility] Plan of care note* Visit Details Visit Type -SN ROUTINE Discipline -Penitentiary Problems Problem Description Start Date Status Goals [...] s/s PE exacerbation.. documented in this encounter [facility] Plan of care note* Visit Details Visit Type -TRUCK RENTAL CLERK ROUTINE Discipline -Physical Therapy Problems Problem Description [...] community ambulation, in order to return to [facility] , to be achieved by 04/25/22. [...] home exercise program. [facility]* Visit Details Visit Type -SN ROUTINE Discipline -Penitentiary Problems Problem Description Start Date Status Goals [...] & symptom reporting. [facility]* Visit Details Visit Type -TRUCK RENTAL CLERK ROUTINE Discipline -Physical Therapy Problems Problem Description [...] community ambulation, in order to return to [facility] , to be achieved by 04/25/22. [...] Visit Details Visit Type -SN ROUTINE Discipline -Penitentiary Problems Problem Description Start Date Status Goals [...] exacerbation, self monitoring. documented in this encounter [facility] Plan of care note* Visit Details Visit Type -SN ROUTINE Discipline -Penitentiary Problems Problem Description Start Date Status Goals [...] instructed on PE. [facility]* Visit Details Visit Type -TRUCK RENTAL CLERK ROUTINE Discipline -Physical Therapy Problems Problem Description [...] [facility]. [facility] Visit Details Visit Type -SN ROUTINE Discipline -Penitentiary Problems Problem Description Start Date Status Goals [...] s/s PE exacerbation. documented in this encounter [facility] Plan of care note* Visit Details Visit Type -TRUCK RENTAL CLERK ROUTINE Discipline -Physical Therapy Problems Problem Description [...] home exercise program. [facility] Visit Details Visit Type -SN ROUTINE Discipline -Penitentiary Problems Problem Description Start Date Status Goals [...] s/s DVT exacerbation.. [facility] Visit Details Visit Type -TRUCK RENTAL CLERK ROUTINE Discipline -Physical Therapy Problems Problem Description [...] community ambulation, in order to return to [facility] , to be achieved by 04/25/22. [...] of sepsis Completed SPO2 Description: Notify Dr. Cehung if pulse ox is <92% at rest. [...] home exercise program. [facility] Visit Details Visit Type -TRUCK RENTAL CLERK ROUTINE Discipline -Physical Therapy Problems Problem Description [...] community ambulation, in order to return to [facility] , to be achieved by 04/25/22. [...] home exercise program. [facility] Visit Details Visit Type -SN ROUTINE Discipline -Penitentiary Problems Problem Description Start Date Status Goals [...] s/s PE exacerbation. [facility] Visit Details Visit Type -SN ROUTINE Discipline -Penitentiary Problems Problem Description Start Date Status Goals [...] s/s PE exacerbation. documented in this encounter [facility] Plan of care note* Visit Details Visit Type -SN ROUTINE Discipline -Penitentiary Problems Problem Description Start Date Status Goals [...] & symptom reporting. [facility] Visit Details Visit Type -TRUCK RENTAL CLERK ROUTINE Discipline -Physical Therapy Problems Problem Description [...] community ambulation, in order to return to [facility] , to be achieved by 04/25/22. [...] home exercise program. [facility] Visit Details Visit Type -TRUCK RENTAL CLERK ROUTINE Discipline -Physical Therapy Problems Problem Description [...] community ambulation, in order to return to [facility] , to be achieved by 04/25/22. [...] home exercise program. [facility] Visit Details Visit Type -TRUCK RENTAL CLERK ROUTINE Discipline -Physical Therapy Problems Problem Description [...] community ambulation, in order to return to [facility] , to be achieved by 04/25/22. [...] home exercise program. [facility] Visit Details [...] community ambulation, in order to return to [facility] , to be achieved by 04/25/22. [...] include: verbal cues. [facility] Visit Details Visit Type -SN AGENCY DC W V ISIT Discipline -Penitentiary Problems Problem Description Start Date Status Goals [...] and Cardiac Diet. [facility] Carlos Trujillo [employer] [facility] Note Date/Time November 29, 2024 11 :17am [facility] [address] [place] [address] OFFICE VISIT Date of Service: 11/29/24 MR#: [id number] Acct: [id number] Name: JAI LUNA Rep #: [id number] : 1950 Provider: ALTAGRACIA Trujillo Age/Sex: 74/M Location: [facility] Status: Signed HPI HPI History of Present [...] abdominal area, he was lift flighted to [facility]. He then had complications for PE/DVTs. [...] from a previous echo done at the [facility] 02/13/2022. The last catheterization November 2016 [...] procedures. The stenting procedures were done at [facility] by Dr. Joshua Lloyd. He denies palpitations. [...] (%) 95 Intake Visit Reasons: Clearance visit Hone Operator Required: No Is patient in pain?: No [...] surgery scheduled for december dr. 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 transplanted heart: [place] heart Qualified Code(s): I25.10 -Atherosclerotic heart disease of [place] coronary artery without angina pectoris Plan: History [...] Today I25.10 - Atherosclerotic heart disease of [place] coronary artery without angina pectoris, Z95.5 - [...] Code Off vis,est,level 4 Diagnoses Atherosclerosis of [place] coronary artery of [place] heart without angina pectoris I25.10 [place] vs. transplanted heart: [place] heart Dyslipidemia E78.5 Peripheral vascular disease I73.9 Essential hypertension I10 Preoperative cardiovascular examination Z01.810 Coding Level of Care Code Off vis,est,level 4 Diagnoses Atherosclerosis of [place] coronary artery of [place] heart without angina pectoris I25.10 [place] vs. transplanted heart: [place] heart Dyslipidemia E78.5 Peripheral vascular disease I73.9 Essential hypertension I10 Preoperative cardiovascular examination Z01.810 Clinical Quality Measures Falls Risk Screening/Assistive Devices Have you fallen in the past year?: No 11/29/24 1125 <Electronically signed by Carlos FRIAS> Date _ Carlos FRIAS Cosigner Signature: Date (if applicable) CC: Dr. Katy Faust MD ~ [facility] [employer] Work Phone: Reason for referral (narrative)* Outpatient Procedure (Routine) - Authorized Specialty Diagnoses / Procedures [facility] To Contact [facility] Diagnoses Pre-operative clearance Procedures ECG COMPLETE ECG ROUTINE ECG W/LEAST 12 LDS W/I&R Eric Hernandez MD [address] [place] [address] [place] [address] Referral ID Status Reason Start Date Expiration Date Visits Requested Visits Authorized [id number] Authorized Auto-Generat ed Referral 01/07/2022 01/07/2023 1 1 [facility] for referral (narrative)* Outpatient Procedure (Routine) - Authorized Specialty Diagnoses / Procedures [facility] To Contact [facility] Diagnoses Personal history of DVT (deep vein thrombosis) Anticoagulation management encounter History of pulmonary embolism Procedures US LEG VEIN DVT [facility] V[facility] LAB DUP-SCAN XTR VEINS COMPLETE BILATERAL STUDY Terry Cifuentes MD [address] [place] [address] [place] [address] Referral ID Status Reason Start Date Expiration Date Visits Requested Visits Authorized [id number] Authorized Auto-Generat ed Referral 05/20/2022 05/20/2023 1 1 [facility] for referral (narrative)* Diagnostic Procedure Only (Routine) - Closed Specialty Diagnoses / Procedures [facility] Referred To Contact XR IMAGING Diagnoses 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) Preoperative examination Procedures XR COLON SINGLE CONTRAST RADIOLOGIC EXAM COLON SINGLE CONTRAST STUDY Ramiro Cheung MD [address] [place] [address] Xr Imaging Referral ID Status Reason Start Date Expiration Date V isits Requested Visits Authorized [id number] Closed Auto-Generate d Referral 04/01/2022 05/01/2023 1 1 [facility] for referral (narrative)* Diagnostic Procedure Only (Routine) - Pending Review Specialty Diagnoses / Procedures Referred By Contac t Referred To Contact US IMAGING Diagnoses Deep vein thrombosis (DVT) of both lower extremities, unspecified chronicity, unspecified vein (HCC) 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) Procedures US DVT LOWER BILATERAL DUP-SCAN XTR VEINS COMPLETE BILATERAL STUDY Yessica Tinoco APRN.CNP [address] [place] [address] Us Imaging Referral ID Status Reason Start Date Expiration Date Visits Requested Visits Authorized [id number] Pending Review Auto-Generat ed Referral 10/14/2022 10/30/2023 1 1 [facility] for referral (narrative)* Outpatient Procedure (Routine) - Authorized Specialty Diagnoses / Procedures Referred By Contac t Referred To Contact [facility] Diagnoses Deep vein thrombosis (DVT) of both lower extremities, unspecified chronicity, unspecified vein (HCC) Localized edema Procedures US LEG VEIN DVT UNL VAS LAB DUP-SCAN XTR VEINS UNILATERAL/LIMITED STUDY Yessica Tinoco APRN.CNP [address] [place] [address] [place] [address] Referral ID Status Reason Start Date Expiration Date Visits Requested Visits Authorized [id number] Authorized Auto-Generat ed Referral 10/15/2022 10/01/2023 1 1 [facility] for referral (narrative)* Outpatient Procedure (Routine) - Authorized Specialty Diagnoses / Procedures Referred By Contac t Referred To Contact [facility] Diagnoses Bruit of right carotid artery Procedures US CAROTID ARTERIES [facility] LAB DUPLEX SCAN EXTRACRANIAL ART COMPL BI STUDY Terry Cifuentes MD [address] [place] [address] [facility] Vascular [address] [address] Referral ID Status Reason Start Date Expiration Date Visits Requested Visits Authorized [id number] Authorized Auto-Generat ed Referral 11/03/2022 11/03/2023 1 1 * Outpatient Procedure (Routine) - Pending Review Specialty Diagnoses / Procedures Referred By Contac t Referred To Contact [facility] Diagnoses 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) Procedures US LEG VEIN DVT UNL VAS LAB DUP-SCAN XTR VEINS UNILATERAL/LIMITED STUDY Terry Cifuentes MD [address] [place] [address] [address] Referral ID Status Reason Start Date Expiration Date Visits Requested Visits Authorized [id number] Pending Review Auto-Generat ed Referral 11/03/2022 11/03/2023 1 1 [facility] for referral (narrative)* Diagnostic Procedure Only (Routine) - Pending Review Specialty Diagnoses / Procedures Referred By Contac t Referred To Contact XR IMAGING Diagnoses Pain in left arm Procedures XR SHOULDER GENERAL 3V OR MORE AP/TRUE AP/OTHER LEFT RADEX SHOULDER COMPLETE MINIMUM 2 VIEWS Michael Christian MD [address] [place] [address] Xr Imaging [id number] Referral ID Status Reason Start Date Expiration Date Visits Requested Visits Authorized [id number] Pending Review Auto-Generat ed Referral 06/11/2023 07/10/2024 1 1 [facility] for referral (narrative)* Consultation (Routine) - Pending Review Specialty Diagnoses / Procedures Referred By Contac t Referred To Contact Colon and Rectal Surgery Diagnoses Rectal bleeding History of rectal cancer Colorectal anastomotic stricture Procedures [place] OFFICE/OUTPATIENT NEW HIGH MDM 60 MINUTES Sabrina Muñiz MD [address] [place] [address] Ana Cheung [address] [place] [address] Referral ID Status Reason Start Date Expiration Date Visits Requested Visits Authorized [id number] Pending Review Specialty Services Required 07/15/2023 07/14/2024 1 1 [facility] for referral (narrative)No reason for [facility] Work Phone: Reason for visit Narrative* Diagnostic Procedure Only (Routine) - Closed Specialty Diagnoses / Procedures Referred By Contac t Referred To Contact XR IMAGING Diagnoses Pain in left arm Procedures XR SHOULDER GENERAL 3V OR MORE AP/TRUE AP/OTHER LEFT RADEX SHOULDER COMPLETE MINIMUM 2 VIEWS Michael Christian MD [address] [place] [address] Xr Imaging [place] [address] Referral ID Status Reason Start Date Expiration Date V isits Requested Visits Authorized [id number] Closed Auto-Generate d Referral 06/11/2023 07/10/2024 1 1 [facility] for visit Narrative* Imaging (Routine) - Authorized Specialty Diagnoses / Procedures Referred By Contac t Referred To Contact Radiology Diagnoses Acoustic neuroma (Multi) Procedures MR IAC w [place] [address] [address] Department of Otolaryngology, [place] [address] Phone: tel: fax: Referral ID Status Reason Start Date Expiration Date Visits Requested Visits Authorized [id number] Authorized Perform Procedure 04/01/2023 03/31/2024 1 1 [facility] Work Phone: Chief Complaint NPV6-month [...] FoundDocuments on File Type Date Recorded Patient Telephone Directory Deliverer Expl anation Advance Directive(s) 02/04/2022 10:42 AM [...] Documents on File Type Date Recorded Patient Telephone Directory Deliverer Expl anation Advance Directive(s) 04/29/2021 1:55 PM Advance Directive(s) 03/20/2021 8:14 AM Advance Directive(s) 03/12/2021 12:52 PM Documents on File Type Date Recorded Patient Telephone Directory Deliverer Expl anation Advance Directive(s) 04/29/2021 1:55 PM Advance Directive(s) 03/20/2021 8:14 AM Advance Directive(s) 03/12/2021 12:52 PM Advance Directive Response Recorded Date/ Time Advance Directives No December 11:52pm Living Will Yes April 07 7:04pm Power of Thread Singer Yes April 07, 2019 7:04pm Advance Directive Response Recorded Date/ Time Advance Directives No December 10:52pm Living Will Yes April 07 6:04pm Power of Thread Singer Yes April 07, 2019 6:04pm Latest Code Status on File Code Status Date Activated Date Inactivated Comments Full Code 01/30/2022 7:09 PM Advance Directive Response Recorded Date/ Time Name of Medical Power of Thread Singer Marilu February 01, 2022 2:25pm Advance Directives No December 10:52pm Living Will Yes February 01 2:25pm Power of Thread Singer Yes February 01, 2022 2:25pm Latest Code Status on File Code Status Date Activated Date Inactivated Comments Full Code 01/30/2022 7:09 PM 02/01/2022 5:30 PM Documents on File Type Date Recorded Patient Telephone Directory Deliverer Expl anation Advance Directive(s) 02/04/2022 10:42 AM Latest Code Status on File Code Status Date Activated Date Inactivated Comments Full Code 02/04/2022 2:47 PM Full Code Order Discussed With: Patient Full Code 01/30/2022 7:09 PM 02/01/2022 5:30 PM Advance Directive Response Recorded Date/ Time Name of Medical Power of Thread Singer Marilu February 01, 2022 2:25pm Name of Medical Power of Thread Singer February 27, 2022 4:07am Advance Directives No December 10:52pm Living Will Yes February 27, 2 022 4:07am Power of Thread Singer Yes February 27, 2022 4:07am Advance Directive Response Recorded Date/ Time Name of Medical Power of Thread Singer Marilu February 01, 2022 2:25pm Name of Medical Power of Thread Singer February 27, 2022 4:07am Name of Medical Power of Thread Singer Marilu Luna March 01, 2022 8:23pm Advance Directives No December 10:52pm Living Will Yes March 01 8:23pm Power of Thread Singer Yes March 01, 2 023 8:23pm Latest [...] July 17, 2022 6 :39pm Power of Thread Singer No July 17, 2022 6:39pm Advance Directive Response Recorded Date/ Time Advance Directives No December 11:52pm Living Will No June 11, 2023 6:49pm Power of Thread Singer No June 10 6:49pm Date Activated Date [...] 072023 8:08am Name of Medical Power of Thread Singer Marilu July 08, 2023 8:08am Advance Directives Yes July 08, 2023 8:08am Living Will Yes July 08, 2023 8: 08am Power of Thread Singer Yes July 08, 2023 8:08am Advance Directive Response Recorded Date/ Time Living Will No April 25 11:35am Do you have a Healthcare Power of Thread Singer? No April 25, 2024 11:35am Advance Directives Yes July 27 2:08pm Advance Directive Response Recorded Date/ Time Advance Directives Yes July 27 2:08pm Reason for Referral Specialty Diagnoses / Procedures Referred By Contac t Referred To Contact Oncology Diagnoses Rectal malignant neoplasm (HCC) Procedures CONSULT TO ONCOLOGY OFFICE/OUTPATIENT [facility] 60-74 MINUTES Caty Bowens MD [address] [place] [id number] Referral ID Status Reason Start Date Expiration Date Visits Requested Visits Authorized [id number] Authorized PCP Requested Referral 06/05/2021 05/29/2022 1 1 Specialty Diagnoses / Procedures Referred By Contac t Referred To Contact MR IMAGING Diagnoses Rectal malignant neoplasm (HCC) Anal squamous cell carcinoma (HCC) Procedures MRI RECTUM WO/W IVCON MRI PELVIS W/O & W/CONTRAST MATERIAL Alexia Rao, NAVNE[employer].FURNITURE INSPECTOR [address] [place] [address] Mr Imaging Referral ID Status Reason Start Date Expiration Date Visits Requested Visits Authorized [id number] Pending Review Auto-Generat ed Referral 07/18/2021 08/17/2022 1 1 Referral ID Status Reason Start Date Expiration Date V isits Requested Visits Authorized [id number] Closed Auto-Generate d Referral 07/18/2021 08/17/2022 1 1 Specialty Diagnoses / Procedures Referred By Contac t Referred To Contact MR IMAGING Diagnoses Malignant neoplasm of rectum (HCC) Procedures MRI RECTUM WO/W IVCON MRI PELVIS W/O & W/CONTRAST MATERIAL Ramiro Cheung MD [address] [address] Mr Imaging Referral ID Status Reason Start Date Expiration Date Visits Requested Visits Authorized [id number] Pending Review Auto-Generat ed Referral 09/25/2021 10/25/2022 1 1 Specialty Diagnoses / Procedures Referred By Contac t Referred To Contact Cardiology Diagnoses Pre-op evaluation Atherosclerosis of coronary artery bypass graft of [place] heart without angina pectoris Bilateral carotid artery stenosis Procedures CONSULT TO CARDIOLOGY OFFICE/OUTPATIENT [facility] 60-74 MINUTES Kristel John PA-C [address] [place] [address] Referral ID Status Reason Start Date Expiration Date Visits Requested Visits Authorized [id number] Authorized PCP Requested Referral 01/07/2022 01/07/2023 1 1 Specialty Diagnoses / Procedures Referred By Contac t Referred To Contact CT IMAGING Diagnoses Rectal cancer (HCC) Malignant neoplasm of rectum (HCC) Procedures CT CHEST W IVCON DIAGNOSTIC COMPUTED TOMOGRAPHY THORAX W/CONTRAST Ramiro Cheung MD [address] [place] [address] Ct Imaging Referral ID Status Reason Start Date Expiration Date V isits Requested Visits Authorized [id number] Closed Auto-Generate d Referral 12/17/2021 01/16/2023 1 1 Specialty Diagnoses / Procedures Referred By Contac t Referred To Contact CT IMAGING Diagnoses Rectal cancer (HCC) Malignant neoplasm of rectum (HCC) Procedures CT ABD/PEL W IVCON CT ABD & PELVIS W/CONTRAST Ramiro Cheung MD [address] [place] [address] Ct Imaging Referral ID Status Reason Start Date Expiration Date V isits Requested Visits Authorized [id number] Closed Auto-Generate d Referral 12/17/2021 01/16/2023 1 1 Specialty Diagnoses / Procedures Referred By Contac t Referred To Contact Radiology Diagnoses Acoustic neuroma (CMS/HCC) Procedures MR IAC w [place] [address] [address] Department [place] [address] Referral ID Status Reason Start Date Expiration Date Visits Requested Visits Authorized [id number] Pending Review Perform Procedure 03/05/2023 03/04/2024 1 1 Specialty Diagnoses / Procedures Referred By Contac t Referred To Contact Orthopedics Diagnoses Left arm pain Procedures CONSULT TO ORTHOPAEDICS OFFICE/OUTPATIENT [facility] 60 MINUTES Norm Parker, ACADEMIC AFFAIRS MANAGER.FURNITURE INSPECTOR [address] [place] [address] Referral ID Status Reason Start Date Expiration Date Visits Requested Visits Authorized [id number] Authorized PCP Requested Referral 04/23/2023 04/20/2024 1 1 Specialty Diagnoses / Procedures Referred By Contac t Referred To Contact Podiatry Diagnoses Ingrown nail of great toe Procedures CONSULT TO PODIATRY OFFICE/OUTPATIENT [facility] 60 MINUTES Mary Anne Alejandro, ACADEMIC AFFAIRS MANAGER.FURNITURE INSPECTOR [address] [place] [address] Referral ID Status Reason Start Date Expiration Date Visits Requested Visits Authorized [id number] Authorized PCP Requested Referral 05/31/2023 05/30/2024 1 1 Specialty Diagnoses / Procedures Referred By Contac t Referred To Contact Diagnoses History of rectal cancer Procedures REFER TO PACC - PRE ANESTHESIA CONSULTATION CLINIC OFFICE/OUTPATIENT [facility] 60 MINUTES Ramiro Cheung MD [address] [place] [address] Referral ID Status Reason Start Date Expiration Date Visits Requested Visits Authorized [id number] Authorized PCP Requested Referral 08/03/2023 08/02/2024 1 1 Specialty Diagnoses / Procedures Referred By Contac t Referred To Contact MR IMAGING Diagnoses History of rectal cancer Procedures MRI RECTUM WO/W IVCON MRI PELVIS W/O & W/CONTRAST MATERIAL Ramiro Cheung MD [address] [place] [address] Mr Imaging [place] [address] Referral ID Status Reason Start Date Expiration Date Visits Requested Visits Authorized [id number] Authorized Auto-Generat ed Referral 08/03/2023 09/01/2024 1 1 Specialty Diagnoses / Procedures Referred By Contac t [facility] Diagnoses History of rectal cancer Procedures ECG COMPLETE ECG ROUTINE ECG W/LEAST 12 LDS W/I&R Ramiro Cheung MD [address] [place] [address] [facility] [address] [place] [address] Referral ID Status Reason Start Date Expiration Date Visits Requested Visits Authorized [id number] Pending Review Auto-Generat ed Referral 08/03/2023 08/02/2024 1 1 Specialty Diagnoses / Procedures Referred By Karen lira Referred To Contact Diagnoses History of rectal cancer Procedures CONSULT TO [facility] OFFICE/OUTPATIENT [facility] 60 MINUTES Ramiro Cheung MD [address] [place] [address] Referral ID Status Reason Start Date Expiration Date Visits Requested Visits Authorized [id number] Authorized PCP Requested Referral 08/03/2023 08/02/2024 1 1 Chief Complaint and Reason for Visit Chief Complaint LINE PLACEMENT Chief Complaint cardiac clearance S/P CABG PRE OP Reason for Visit Dilated aortic root Atherosclerotic heart disease of [place] coronary artery without angina pectoris Bilateral carotid artery stenosis Dyslipidemia Essential hypertension Peripheral vascular disease Chief Complaint cardiac clearance S/P CABG PRE OP FEVER Reason for Visit Dilated aortic root Atherosclerotic heart disease of [place] coronary artery without angina pectoris Bilateral carotid artery stenosis Dyslipidemia Essential hypertension Peripheral vascular disease Chief Complaint cardiac clearance S/P CABG PRE OP FEVER Amb Documentation rectal bleed Reason for Visit Dilated aortic root Atherosclerotic heart disease of [place] coronary artery without angina pectoris Bilateral carotid artery stenosis Dyslipidemia Essential hypertension Peripheral vascular disease Chief Complaint cardiac clearance S/P CABG PRE OP FEVER Amb Documentation rectal bleed SOB Reason for Visit Dilated aortic root Atherosclerotic heart disease of [place] coronary artery without angina pectoris Bilateral carotid artery stenosis Dyslipidemia Essential hypertension Peripheral vascular disease Chief Complaint cardiac clearance S/P CABG PRE OP FEVER Amb Documentation rectal bleed SOB CS/PVD Amb Documentation Reason for Visit Dilated aortic root Atherosclerotic heart disease of [place] coronary artery without angina pectoris Bilateral carotid artery stenosis Dyslipidemia Essential hypertension Peripheral vascular disease Chief Complaint 9 M FU CONSULT-SUBLAVIAN STEAL SYNDROME VASCULAR DISEASE Reason for Visit Dilated aortic root Atherosclerotic heart disease of [place] coronary artery without angina pectoris Bilateral carotid artery stenosis Dyslipidemia Essential hypertension Peripheral vascular disease 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 Claudication of left lower extremity 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 Chief Complaint 9 M FU CONSULT-SUBLAVIAN STEAL SYNDROME VASCULAR DISEASE ASSULT Reason for Visit Dilated aortic root Atherosclerotic heart disease of [place] coronary artery without angina pectoris Bilateral carotid artery stenosis Dyslipidemia Essential hypertension Peripheral vascular disease 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 Claudication of left lower extremity 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 Chief Complaint 9 M FU CONSULT-SUBLAVIAN STEAL SYNDROME VASCULAR DISEASE ASSULT Atherosclerosis of [place] arteries of extremities Reason for Visit Dilated aortic root Atherosclerotic heart disease of [place] coronary artery without angina pectoris Bilateral carotid [...] 2024 10:38am Atherosclerotic heart diseas e of [place] coronary artery without angina pectoris November 29, [...] section and content) DATE CREATED AUTHOR 02/11/2021 Aubrey DATE CREATED AUTHOR AUTHOR'S ORGANIZ ATION 02/16/2021 [facility] DATE CREATED AUTHOR AUTHOR'S ORGANIZ ATION 12/07/2022 [facility] DATE CREATED AUTHOR AUTHOR'S ORGANIZ ATION 07/19/2023 [facility] DATE CREATED AUTHOR AUTHOR'S ORGANIZ ATION 09/24/2023 [facility] DATE CREATED AUTHOR AUTHOR'S ORGANIZ ATION 04/05/2024 [facility] DATE CREATED AUTHOR AUTHOR'S ORGANIZ ATION 12/27/2024 [facility] DATE CREATED AUTHOR AUTHOR'S ORGANIZ ATION 01/03/2025 [facility] Source Comments (unrecognize d section and content) In the event this informatio n is protected by the Federal Confidentiality of Alcohol and Drug Abuse Patient Records regulations: The Federal rules restrict any use of the information to criminally investigate or prosecute any alcohol or drug abuse patient.[facility] the event this information is protected by the Federal Confidentiality of Alcohol and Drug Abuse Patient Records regulations: The Federal rules restrict any use of the information to criminally investigate or prosecute any alcohol or drug abuse patient.[facility] HospitalIn the event this information is protected by the Federal Confidentiality of Alcohol and Drug Abuse Patient Records regulations: The Federal rules restrict any use of the information to criminally investigate or prosecute any alcohol or drug abuse patient.[facility]In the event this information is protected by the Federal Confidentiality of Alcohol and Drug Abuse Patient Records regulations: The Federal rules restrict any use of the information to criminally investigate or prosecute any alcohol or drug abuse patient.[facility] HospitalIn the event this information is protected by the Federal Confidentiality of Alcohol and Drug Abuse Patient Records regulations: The Federal rules restrict any use of the information to criminally investigate or prosecute any alcohol or drug abuse patient.[facility] HospitalIn the event this information is protected by the Federal Confidentiality of Alcohol and Drug Abuse Patient Records regulations: The Federal rules restrict any use of the information to criminally investigate or prosecute any alcohol or drug abuse patient.[facility] HospitalIn the event this information is protected by the Federal Confidentiality of Alcohol and Drug Abuse Patient Records regulations: The Federal rules restrict any use of the information to criminally investigate or prosecute any alcohol or drug abuse patient.[facility] HospitalIn the event this information is protected by the Federal Confidentiality of Alcohol and Drug Abuse Patient Records regulations: The Federal rules restrict any use of the information to criminally investigate or prosecute any alcohol or drug abuse patient.[facility] HospitalIn the event this information is protected by the Federal Confidentiality of Alcohol and Drug Abuse Patient Records regulations: The Federal rules restrict any use of the information to criminally investigate or prosecute any alcohol or drug abuse patient.[facility] HospitalIn the event this information is protected by the Federal Confidentiality of Alcohol and Drug Abuse Patient Records regulations: The Federal rules restrict any use of the information to criminally investigate or prosecute any alcohol or drug abuse patient.[facility] HospitalIn the event this information is protected by the Federal Confidentiality of Alcohol and Drug Abuse Patient Records regulations: The Federal rules restrict any use of the information to criminally investigate or prosecute any alcohol or drug abuse patient.[facility] HospitalIn the event this information is protected by the Federal Confidentiality of Alcohol and Drug Abuse Patient Records regulations: The Federal rules restrict any use of the information to criminally investigate or prosecute any alcohol or drug abuse patient.[facility] HospitalIn the event this information is protected by the Federal Confidentiality of Alcohol and Drug Abuse Patient Records regulations: The Federal rules restrict any use of the information to criminally investigate or prosecute any alcohol or drug abuse patient.[facility] HospitalIn the event this information is protected by the Federal Confidentiality of Alcohol and Drug Abuse Patient Records regulations: The Federal rules restrict any use of the information to criminally investigate or prosecute any alcohol or drug abuse patient.[facility] HospitalIn the event this information is protected by the Federal Confidentiality of Alcohol and Drug Abuse Patient Records regulations: The Federal rules restrict any use of the information to criminally investigate or prosecute any alcohol or drug abuse patient.[facility] HospitalIn the event this information is protected by the Federal Confidentiality of Alcohol and Drug Abuse Patient Records regulations: The Federal rules restrict any use of the information to criminally investigate or prosecute any alcohol or drug abuse patient.[facility] HospitalIn the event this information is protected by the Federal Confidentiality of Alcohol and Drug Abuse Patient Records regulations: The Federal rules restrict any use of the information to criminally investigate or prosecute any alcohol or drug abuse patient.[facility] HospitalIn the event this information is protected by the Federal Confidentiality of Alcohol and Drug Abuse Patient Records regulations: The Federal rules restrict any use of the information to criminally investigate or prosecute any alcohol or drug abuse patient.[facility] HospitalIn the event this information is protected by the Federal Confidentiality of Alcohol and Drug Abuse Patient Records regulations: The Federal rules restrict any use of the information to criminally investigate or prosecute any alcohol or drug abuse patient.[facility] HospitalIn the event this information is protected by the Federal Confidentiality of Alcohol and Drug Abuse Patient Records regulations: The Federal rules restrict any use of the information to criminally investigate or prosecute any alcohol or drug abuse patient.[facility] HospitalIn the event this information is protected by the Federal Confidentiality of Alcohol and Drug Abuse Patient Records regulations: The Federal rules restrict any use of the information to criminally investigate or prosecute any alcohol or drug abuse patient.[facility] HospitalIn the event this information is protected by the Federal Confidentiality of Alcohol and Drug Abuse Patient Records regulations: The Federal rules restrict any use of the information to criminally investigate or prosecute any alcohol or drug abuse patient.[facility] HospitalIn the event this information is protected by the Federal Confidentiality of Alcohol and Drug Abuse Patient Records regulations: The Federal rules restrict any use of the information to criminally investigate or prosecute any alcohol or drug abuse patient.[facility] HospitalIn the event this information is protected by the Federal Confidentiality of Alcohol and Drug Abuse Patient Records regulations: The Federal rules restrict any use of the information to criminally investigate or prosecute any alcohol or drug abuse patient.[facility] HospitalIn the event this information is protected by the Federal Confidentiality of Alcohol and Drug Abuse Patient Records regulations: The Federal rules restrict any use of the information to criminally investigate or prosecute any alcohol or drug abuse patient.[facility] HospitalIn the event this information is protected by the Federal Confidentiality of Alcohol and Drug Abuse Patient Records regulations: The Federal rules restrict any use of the information to criminally investigate or prosecute any alcohol or drug abuse patient.[facility] HospitalIn the event this information is protected by the Federal Confidentiality of Alcohol and Drug Abuse Patient Records regulations: The Federal rules restrict any use of the information to criminally investigate or prosecute any alcohol or drug abuse patient.[facility] HospitalIn the event this information is protected by the Federal Confidentiality of Alcohol and Drug Abuse Patient Records regulations: The Federal rules restrict any use of the information to criminally investigate or prosecute any alcohol or drug abuse patient.[facility] HospitalIn the event this information is protected by the Federal Confidentiality of Alcohol and Drug Abuse Patient Records regulations: The Federal rules restrict any use of the information to criminally investigate or prosecute any alcohol or drug abuse patient.[facility] HospitalIn the event this information is protected by the Federal Confidentiality of Alcohol and Drug Abuse Patient Records regulations: The Federal rules restrict any use of the information to criminally investigate or prosecute any alcohol or drug abuse patient.[facility] HospitalIn the event this information is protected by the Federal Confidentiality of Alcohol and Drug Abuse Patient Records regulations: The Federal rules restrict any use of the information to criminally investigate or prosecute any alcohol or drug abuse patient.[facility] HospitalIn the event this information is protected by the Federal Confidentiality of Alcohol and Drug Abuse Patient Records regulations: The Federal rules restrict any use of the information to criminally investigate or prosecute any alcohol or drug abuse patient.[facility] HospitalIn the event this information is protected by the Federal Confidentiality of Alcohol and Drug Abuse Patient Records regulations: The Federal rules restrict any use of the information to criminally investigate or prosecute any alcohol or drug abuse patient.[facility] HospitalIn the event this information is protected by the Federal Confidentiality of Alcohol and Drug Abuse Patient Records regulations: The Federal rules restrict any use of the information to criminally investigate or prosecute any alcohol or drug abuse patient.[facility] HospitalIn the event this information is protected by the Federal Confidentiality of Alcohol and Drug Abuse Patient Records regulations: The Federal rules restrict any use of the information to criminally investigate or prosecute any alcohol or drug abuse patient.[facility] HospitalIn the event this information is protected by the Federal Confidentiality of Alcohol and Drug Abuse Patient Records regulations: The Federal rules restrict any use of the information to criminally investigate or prosecute any alcohol or drug abuse patient.[facility] HospitalIn the event this information is protected by the Federal Confidentiality of Alcohol and Drug Abuse Patient Records regulations: The Federal rules restrict any use of the information to criminally investigate or prosecute any alcohol or drug abuse patient.[facility] HospitalIn the event this information is protected by the Federal Confidentiality of Alcohol and Drug Abuse Patient Records regulations: The Federal rules restrict any use of the information to criminally investigate or prosecute any alcohol or drug abuse patient.[facility] HospitalIn the event this information is protected by the Federal Confidentiality of Alcohol and Drug Abuse Patient Records regulations: The Federal rules restrict any use of the information to criminally investigate or prosecute any alcohol or drug abuse patient.[facility] HospitalIn the event this information is protected by the Federal Confidentiality of Alcohol and Drug Abuse Patient Records regulations: The Federal rules restrict any use of the information to criminally investigate or prosecute any alcohol or drug abuse patient.[facility] HospitalIn the event this information is protected by the Federal Confidentiality of Alcohol and Drug Abuse Patient Records regulations: The Federal rules restrict any use of the information to criminally investigate or prosecute any alcohol or drug abuse patient.[facility] HospitalIn the event this information is protected by the Federal Confidentiality of Alcohol and Drug Abuse Patient Records regulations: The Federal rules restrict any use of the information to criminally investigate or prosecute any alcohol or drug abuse patient.[facility] HospitalIn the event this information is protected by the Federal Confidentiality of Alcohol and Drug Abuse Patient Records regulations: The Federal rules restrict any use of the information to criminally investigate or prosecute any alcohol or drug abuse patient.[facility] HospitalIn the event this information is protected by the Federal Confidentiality of Alcohol and Drug Abuse Patient Records regulations: The Federal rules restrict any use of the information to criminally investigate or prosecute any alcohol or drug abuse patient.[facility] HospitalIn the event this information is protected by the Federal Confidentiality of Alcohol and Drug Abuse Patient Records regulations: The Federal rules restrict any use of the information to criminally investigate or prosecute any alcohol or drug abuse patient.[facility] HospitalIn the event this information is protected by the Federal Confidentiality of Alcohol and Drug Abuse Patient Records regulations: The Federal rules restrict any use of the information to criminally investigate or prosecute any alcohol or drug abuse patient.[facility] HospitalIn the event this information is protected by the Federal Confidentiality of Alcohol and Drug Abuse Patient Records regulations: The Federal rules restrict any use of the information to criminally investigate or prosecute any alcohol or drug abuse patient.[facility] HospitalIn the event this information is protected by the Federal Confidentiality of Alcohol and Drug Abuse Patient Records regulations: The Federal rules restrict any use of the information to criminally investigate or prosecute any alcohol or drug abuse patient.[facility] HospitalIn the event this information is protected by the Federal Confidentiality of Alcohol and Drug Abuse Patient Records regulations: The Federal rules restrict any use of the information to criminally investigate or prosecute any alcohol or drug abuse patient.[facility] HospitalIn the event this information is protected by the Federal Confidentiality of Alcohol and Drug Abuse Patient Records regulations: The Federal rules restrict any use of the information to criminally investigate or prosecute any alcohol or drug abuse patient.[facility] HospitalIn the event this information is protected by the Federal Confidentiality of Alcohol and Drug Abuse Patient Records regulations: The Federal rules restrict any use of the information to criminally investigate or prosecute any alcohol or drug abuse patient.[facility] HospitalIn the event this information is protected by the Federal Confidentiality of Alcohol and Drug Abuse Patient Records regulations: The Federal rules restrict any use of the information to criminally investigate or prosecute any alcohol or drug abuse patient.[facility] HospitalIn the event this information is protected by the Federal Confidentiality of Alcohol and Drug Abuse Patient Records regulations: The Federal rules restrict any use of the information to criminally investigate or prosecute any alcohol or drug abuse patient.[facility] HospitalIn the event this information is protected by the Federal Confidentiality of Alcohol and Drug Abuse Patient Records regulations: The Federal rules restrict any use of the information to criminally investigate or prosecute any alcohol or drug abuse patient.[facility] HospitalIn the event this information is protected by the Federal Confidentiality of Alcohol and Drug Abuse Patient Records regulations: The Federal rules restrict any use of the information to criminally investigate or prosecute any alcohol or drug abuse patient.[facility] HospitalIn the event this information is protected by the Federal Confidentiality of Alcohol and Drug Abuse Patient Records regulations: The Federal rules restrict any use of the information to criminally investigate or prosecute any alcohol or drug abuse patient.[facility] HospitalIn the event this information is protected by the Federal Confidentiality of Alcohol and Drug Abuse Patient Records regulations: The Federal rules restrict any use of the information to criminally investigate or prosecute any alcohol or drug abuse patient.[facility] HospitalIn the event this information is protected by the Federal Confidentiality of Alcohol and Drug Abuse Patient Records regulations: The Federal rules restrict any use of the information to criminally investigate or prosecute any alcohol or drug abuse patient.[facility] HospitalIn the event this information is protected by the Federal Confidentiality of Alcohol and Drug Abuse Patient Records regulations: The Federal rules restrict any use of the information to criminally investigate or prosecute any alcohol or drug abuse patient.[facility] HospitalIn the event this information is protected by the Federal Confidentiality of Alcohol and Drug Abuse Patient Records regulations: The Federal rules restrict any use of the information to criminally investigate or prosecute any alcohol or drug abuse patient.[facility] HospitalIn the event this information is protected by the Federal Confidentiality of Alcohol and Drug Abuse Patient Records regulations: The Federal rules restrict any use of the information to criminally investigate or prosecute any alcohol or drug abuse patient.[facility] HospitalIn the event this information is protected by the Federal Confidentiality of Alcohol and Drug Abuse Patient Records regulations: The Federal rules restrict any use of the information to criminally investigate or prosecute any alcohol or drug abuse patient.[facility] HospitalIn the event this information is protected by the Federal Confidentiality of Alcohol and Drug Abuse Patient Records regulations: The Federal rules restrict any use of the information to criminally investigate or prosecute any alcohol or drug abuse patient.[facility] HospitalIn the event this information is protected by the Federal Confidentiality of Alcohol and Drug Abuse Patient Records regulations: The Federal rules restrict any use of the information to criminally investigate or prosecute any alcohol or drug abuse patient.[facility] HospitalIn the event this information is protected by the Federal Confidentiality of Alcohol and Drug Abuse Patient Records regulations: The Federal rules restrict any use of the information to criminally investigate or prosecute any alcohol or drug abuse patient.[facility] HospitalIn the event this information is protected by the Federal Confidentiality of Alcohol and Drug Abuse Patient Records regulations: The Federal rules restrict any use of the information to criminally investigate or prosecute any alcohol or drug abuse patient.[facility] HospitalIn the event this information is protected by the Federal Confidentiality of Alcohol and Drug Abuse Patient Records regulations: The Federal rules restrict any use of the information to criminally investigate or prosecute any alcohol or drug abuse patient.[facility] HospitalIn the event this information is protected by the Federal Confidentiality of Alcohol and Drug Abuse Patient Records regulations: The Federal rules restrict any use of the information to criminally investigate or prosecute any alcohol or drug abuse patient.[facility] HospitalIn the event this information is protected by the Federal Confidentiality of Alcohol and Drug Abuse Patient Records regulations: The Federal rules restrict any use of the information to criminally investigate or prosecute any alcohol or drug abuse patient.[facility] HospitalIn the event this information is protected by the Federal Confidentiality of Alcohol and Drug Abuse Patient Records regulations: The Federal rules restrict any use of the information to criminally investigate or prosecute any alcohol or drug abuse patient.[facility] HospitalIn the event this information is protected by the Federal Confidentiality of Alcohol and Drug Abuse Patient Records regulations: The Federal rules restrict any use of the information to criminally investigate or prosecute any alcohol or drug abuse patient.[facility] HospitalIn the event this information is protected by the Federal Confidentiality of Alcohol and Drug Abuse Patient Records regulations: The Federal rules restrict any use of the information to criminally investigate or prosecute any alcohol or drug abuse patient.[facility] HospitalIn the event this information is protected by the Federal Confidentiality of Alcohol and Drug Abuse Patient Records regulations: The Federal rules restrict any use of the information to criminally investigate or prosecute any alcohol or drug abuse patient.[facility] HospitalIn the event this information is protected by the Federal Confidentiality of Alcohol and Drug Abuse Patient Records regulations: The Federal rules restrict any use of the information to criminally investigate or prosecute any alcohol or drug abuse patient.[facility] HospitalIn the event this information is protected by the Federal Confidentiality of Alcohol and Drug Abuse Patient Records regulations: The Federal rules restrict any use of the information to criminally investigate or prosecute any alcohol or drug abuse patient.[facility] HospitalIn the event this information is protected by the Federal Confidentiality of Alcohol and Drug Abuse Patient Records regulations: The Federal rules restrict any use of the information to criminally investigate or prosecute any alcohol or drug abuse patient.[facility] HospitalIn the event this information is protected by the Federal Confidentiality of Alcohol and Drug Abuse Patient Records regulations: The Federal rules restrict any use of the information to criminally investigate or prosecute any alcohol or drug abuse patient.[facility] HospitalIn the event this information is protected by the Federal Confidentiality of Alcohol and Drug Abuse Patient Records regulations: The Federal rules restrict any use of the information to criminally investigate or prosecute any alcohol or drug abuse patient.[facility]In the event this information is protected by the Federal Confidentiality of Alcohol and Drug Abuse Patient Records regulations: The Federal rules restrict any use of the information to criminally investigate or prosecute any alcohol or drug abuse patient.[facility] HospitalIn the event this information is protected by the Federal Confidentiality of Alcohol and Drug Abuse Patient Records regulations: The Federal rules restrict any use of the information to criminally investigate or prosecute any alcohol or drug abuse patient.[facility] HospitalIn the event this information is protected by the Federal Confidentiality of Alcohol and Drug Abuse Patient Records regulations: The Federal rules restrict any use of the information to criminally investigate or prosecute any alcohol or drug abuse patient.[facility] HospitalIn the event this information is protected by the Federal Confidentiality of Alcohol and Drug Abuse Patient Records regulations: The Federal rules restrict any use of the information to criminally investigate or prosecute any alcohol or drug abuse patient.[facility] HospitalIn the event this information is protected by the Federal Confidentiality of Alcohol and Drug Abuse Patient Records regulations: The Federal rules restrict any use of the information to criminally investigate or prosecute any alcohol or drug abuse patient.[facility] HospitalIn the event this information is protected by the Federal Confidentiality of Alcohol and Drug Abuse Patient Records regulations: The Federal rules restrict any use of the information to criminally investigate or prosecute any alcohol or drug abuse patient.[facility] HospitalIn the event this information is protected by the Federal Confidentiality of Alcohol and Drug Abuse Patient Records regulations: The Federal rules restrict any use of the information to criminally investigate or prosecute any alcohol or drug abuse patient.[facility] HospitalIn the event this information is protected by the Federal Confidentiality of Alcohol and Drug Abuse Patient Records regulations: The Federal rules restrict any use of the information to criminally investigate or prosecute any alcohol or drug abuse patient.[facility] HospitalIn the event this information is protected by the Federal Confidentiality of Alcohol and Drug Abuse Patient Records regulations: The Federal rules restrict any use of the information to criminally investigate or prosecute any alcohol or drug abuse patient.[facility] HospitalIn the event this information is protected by the Federal Confidentiality of Alcohol and Drug Abuse Patient Records regulations: The Federal rules restrict any use of the information to criminally investigate or prosecute any alcohol or drug abuse patient.[facility] HospitalIn the event this information is protected by the Federal Confidentiality of Alcohol and Drug Abuse Patient Records regulations: The Federal rules restrict any use of the information to criminally investigate or prosecute any alcohol or drug abuse patient.[facility] HospitalIn the event this information is protected by the Federal Confidentiality of Alcohol and Drug Abuse Patient Records regulations: The Federal rules restrict any use of the information to criminally investigate or prosecute any alcohol or drug abuse patient.[facility] HospitalIn the event this information is protected by the Federal Confidentiality of Alcohol and Drug Abuse Patient Records regulations: The Federal rules restrict any use of the information to criminally investigate or prosecute any alcohol or drug abuse patient.[facility] HospitalIn the event this information is protected by the Federal Confidentiality of Alcohol and Drug Abuse Patient Records regulations: The Federal rules restrict any use of the information to criminally investigate or prosecute any alcohol or drug abuse patient.[facility] HospitalIn the event this information is protected by the Federal Confidentiality of Alcohol and Drug Abuse Patient Records regulations: The Federal rules restrict any use of the information to criminally investigate or prosecute any alcohol or drug abuse patient.[facility] HospitalIn the event this information is protected by the Federal Confidentiality of Alcohol and Drug Abuse Patient Records regulations: The Federal rules restrict any use of the information to criminally investigate or prosecute any alcohol or drug abuse patient.[facility] HospitalIn the event this information is protected by the Federal Confidentiality of Alcohol and Drug Abuse Patient Records regulations: The Federal rules restrict any use of the information to criminally investigate or prosecute any alcohol or drug abuse patient.[facility] HospitalIn the event this information is protected by the Federal Confidentiality of Alcohol and Drug Abuse Patient Records regulations: The Federal rules restrict any use of the information to criminally investigate or prosecute any alcohol or drug abuse patient.[facility] HospitalIn the event this information is protected by the Federal Confidentiality of Alcohol and Drug Abuse Patient Records regulations: The Federal rules restrict any use of the information to criminally investigate or prosecute any alcohol or drug abuse patient.[facility] HospitalIn the event this information is protected by the Federal Confidentiality of Alcohol and Drug Abuse Patient Records regulations: The Federal rules restrict any use of the information to criminally investigate or prosecute any alcohol or drug abuse patient.[facility] HospitalIn the event this information is protected by the Federal Confidentiality of Alcohol and Drug Abuse Patient Records regulations: The Federal rules restrict any use of the information to criminally investigate or prosecute any alcohol or drug abuse patient.[facility] HospitalIn the event this information is protected by the Federal Confidentiality of Alcohol and Drug Abuse Patient Records regulations: The Federal rules restrict any use of the information to criminally investigate or prosecute any alcohol or drug abuse patient.[facility] HospitalIn the event this information is protected by the Federal Confidentiality of Alcohol and Drug Abuse Patient Records regulations: The Federal rules restrict any use of the information to criminally investigate or prosecute any alcohol or drug abuse patient.[facility] HospitalIn the event this information is protected by the Federal Confidentiality of Alcohol and Drug Abuse Patient Records regulations: The Federal rules restrict any use of the information to criminally investigate or prosecute any alcohol or drug abuse patient.[facility] HospitalIn the event this information is protected by the Federal Confidentiality of Alcohol and Drug Abuse Patient Records regulations: The Federal rules restrict any use of the information to criminally investigate or prosecute any alcohol or drug abuse patient.[facility] HospitalIn the event this information is protected by the Federal Confidentiality of Alcohol and Drug Abuse Patient Records regulations: The Federal rules restrict any use of the information to criminally investigate or prosecute any alcohol or drug abuse patient.[facility] HospitalIn the event this information is protected by the Federal Confidentiality of Alcohol and Drug Abuse Patient Records regulations: The Federal rules restrict any use of the information to criminally investigate or prosecute any alcohol or drug abuse patient.[facility] HospitalIn the event this information is protected by the Federal Confidentiality of Alcohol and Drug Abuse Patient Records regulations: The Federal rules restrict any use of the information to criminally investigate or prosecute any alcohol or drug abuse patient.[facility] HospitalIn the event this information is protected by the Federal Confidentiality of Alcohol and Drug Abuse Patient Records regulations: The Federal rules restrict any use of the information to criminally investigate or prosecute any alcohol or drug abuse patient.[facility] HospitalIn the event this information is protected by the Federal Confidentiality of Alcohol and Drug Abuse Patient Records regulations: The Federal rules restrict any use of the information to criminally investigate or prosecute any alcohol or drug abuse patient.[facility] HospitalIn the event this information is protected by the Federal Confidentiality of Alcohol and Drug Abuse Patient Records regulations: The Federal rules restrict any use of the information to criminally investigate or prosecute any alcohol or drug abuse patient.[facility] HospitalIn the event this information is protected by the Federal Confidentiality of Alcohol and Drug Abuse Patient Records regulations: The Federal rules restrict any use of the information to criminally investigate or prosecute any alcohol or drug abuse patient.[facility] HospitalIn the event this information is protected by the Federal Confidentiality of Alcohol and Drug Abuse Patient Records regulations: The Federal rules restrict any use of the information to criminally investigate or prosecute any alcohol or drug abuse patient.[facility] HospitalIn the event this information is protected by the Federal Confidentiality of Alcohol and Drug Abuse Patient Records regulations: The Federal rules restrict any use of the information to criminally investigate or prosecute any alcohol or drug abuse patient.[facility] HospitalIn the event this information is protected by the Federal Confidentiality of Alcohol and Drug Abuse Patient Records regulations: The Federal rules restrict any use of the information to criminally investigate or prosecute any alcohol or drug abuse patient.[facility] HospitalIn the event this information is protected by the Federal Confidentiality of Alcohol and Drug Abuse Patient Records regulations: The Federal rules restrict any use of the information to criminally investigate or prosecute any alcohol or drug abuse patient.[facility] HospitalIn the event this information is protected by the Federal Confidentiality of Alcohol and Drug Abuse Patient Records regulations: The Federal rules restrict any use of the information to criminally investigate or prosecute any alcohol or drug abuse patient.[facility] HospitalIn the event this information is protected by the Federal Confidentiality of Alcohol and Drug Abuse Patient Records regulations: The Federal rules restrict any use of the information to criminally investigate or prosecute any alcohol or drug abuse patient.[facility] HospitalIn the event this information is protected by the Federal Confidentiality of Alcohol and Drug Abuse Patient Records regulations: The Federal rules restrict any use of the information to criminally investigate or prosecute any alcohol or drug abuse patient.[facility] HospitalIn the event this information is protected by the Federal Confidentiality of Alcohol and Drug Abuse Patient Records regulations: The Federal rules restrict any use of the information to criminally investigate or prosecute any alcohol or drug abuse patient.[facility] HospitalIn the event this information is protected by the Federal Confidentiality of Alcohol and Drug Abuse Patient Records regulations: The Federal rules restrict any use of the information to criminally investigate or prosecute any alcohol or drug abuse patient.[facility] HospitalIn the event this information is protected by the Federal Confidentiality of Alcohol and Drug Abuse Patient Records regulations: The Federal rules restrict any use of the information to criminally investigate or prosecute any alcohol or drug abuse patient.[facility] HospitalIn the event this information is protected by the Federal Confidentiality of Alcohol and Drug Abuse Patient Records regulations: The Federal rules restrict any use of the information to criminally investigate or prosecute any alcohol or drug abuse patient.[facility] HospitalIn the event this information is protected by the Federal Confidentiality of Alcohol and Drug Abuse Patient Records regulations: The Federal rules restrict any use of the information to criminally investigate or prosecute any alcohol or drug abuse patient.[facility] HospitalIn the event this information is protected by the Federal Confidentiality of Alcohol and Drug Abuse Patient Records regulations: The Federal rules restrict any use of the information to criminally investigate or prosecute any alcohol or drug abuse patient.[facility] HospitalIn the event this information is protected by the Federal Confidentiality of Alcohol and Drug Abuse Patient Records regulations: The Federal rules restrict any use of the information to criminally investigate or prosecute any alcohol or drug abuse patient.[facility] HospitalIn the event this information is protected by the Federal Confidentiality of Alcohol and Drug Abuse Patient Records regulations: The Federal rules restrict any use of the information to criminally investigate or prosecute any alcohol or drug abuse patient.[facility] HospitalIn the event this information is protected by the Federal Confidentiality of Alcohol and Drug Abuse Patient Records regulations: The Federal rules restrict any use of the information to criminally investigate or prosecute any alcohol or drug abuse patient.[facility] HospitalIn the event this information is protected by the Federal Confidentiality of Alcohol and Drug Abuse Patient Records regulations: The Federal rules restrict any use of the information to criminally investigate or prosecute any alcohol or drug abuse patient.[facility] HospitalIn the event this information is protected by the Federal Confidentiality of Alcohol and Drug Abuse Patient Records regulations: The Federal rules restrict any use of the information to criminally investigate or prosecute any alcohol or drug abuse patient.[facility] HospitalIn the event this information is protected by the Federal Confidentiality of Alcohol and Drug Abuse Patient Records regulations: The Federal rules restrict any use of the information to criminally investigate or prosecute any alcohol or drug abuse patient.[facility] HospitalIn the event this information is protected by the Federal Confidentiality of Alcohol and Drug Abuse Patient Records regulations: The Federal rules restrict any use of the information to criminally investigate or prosecute any alcohol or drug abuse patient.[facility] HospitalIn the event this information is protected by the Federal Confidentiality of Alcohol and Drug Abuse Patient Records regulations: The Federal rules restrict any use of the information to criminally investigate or prosecute any alcohol or drug abuse patient.[facility] HospitalIn the event this information is protected by the Federal Confidentiality of Alcohol and Drug Abuse Patient Records regulations: The Federal rules restrict any use of the information to criminally investigate or prosecute any alcohol or drug abuse patient.[facility] HospitalIn the event this information is protected by the Federal Confidentiality of Alcohol and Drug Abuse Patient Records regulations: The Federal rules restrict any use of the information to criminally investigate or prosecute any alcohol or drug abuse patient.[facility] HospitalIn the event this information is protected by the Federal Confidentiality of Alcohol and Drug Abuse Patient Records regulations: The Federal rules restrict any use of the information to criminally investigate or prosecute any alcohol or drug abuse patient.[facility] HospitalIn the event this information is protected by the Federal Confidentiality of Alcohol and Drug Abuse Patient Records regulations: The Federal rules restrict any use of the information to criminally investigate or prosecute any alcohol or drug abuse patient.[facility] HospitalIn the event this information is protected by the Federal Confidentiality of Alcohol and Drug Abuse Patient Records regulations: The Federal rules restrict any use of the information to criminally investigate or prosecute any alcohol or drug abuse patient.[facility] HospitalIn the event this information is protected by the Federal Confidentiality of Alcohol and Drug Abuse Patient Records regulations: The Federal rules restrict any use of the information to criminally investigate or prosecute any alcohol or drug abuse patient.[facility] HospitalIn the event this information is protected by the Federal Confidentiality of Alcohol and Drug Abuse Patient Records regulations: The Federal rules restrict any use of the information to criminally investigate or prosecute any alcohol or drug abuse patient.[facility] HospitalIn the event this information is protected by the Federal Confidentiality of Alcohol and Drug Abuse Patient Records regulations: The Federal rules restrict any use of the information to criminally investigate or prosecute any alcohol or drug abuse patient.[facility] HospitalIn the event this information is protected by the Federal Confidentiality of Alcohol and Drug Abuse Patient Records regulations: The Federal rules restrict any use of the information to criminally investigate or prosecute any alcohol or drug abuse patient.[facility] HospitalIn the event this information is protected by the Federal Confidentiality of Alcohol and Drug Abuse Patient Records regulations: The Federal rules restrict any use of the information to criminally investigate or prosecute any alcohol or drug abuse patient.[facility] HospitalIn the event this information is protected by the Federal Confidentiality of Alcohol and Drug Abuse Patient Records regulations: The Federal rules restrict any use of the information to criminally investigate or prosecute any alcohol or drug abuse patient.[facility] HospitalIn the event this information is protected by the Federal Confidentiality of Alcohol and Drug Abuse Patient Records regulations: The Federal rules restrict any use of the information to criminally investigate or prosecute any alcohol or drug abuse patient.[facility] HospitalIn the event this information is protected by the Federal Confidentiality of Alcohol and Drug Abuse Patient Records regulations: The Federal rules restrict any use of the information to criminally investigate or prosecute any alcohol or drug abuse patient.[facility] HospitalIn the event this information is protected by the Federal Confidentiality of Alcohol and Drug Abuse Patient Records regulations: The Federal rules restrict any use of the information to criminally investigate or prosecute any alcohol or drug abuse patient.[facility] HospitalIn the event this information is protected by the Federal Confidentiality of Alcohol and Drug Abuse Patient Records regulations: The Federal rules restrict any use of the information to criminally investigate or prosecute any alcohol or drug abuse patient.[facility] HospitalIn the event this information is protected by the Federal Confidentiality of Alcohol and Drug Abuse Patient Records regulations: The Federal rules restrict any use of the information to criminally investigate or prosecute any alcohol or drug abuse patient.[facility] HospitalIn the event this information is protected by the Federal Confidentiality of Alcohol and Drug Abuse Patient Records regulations: The Federal rules restrict any use of the information to criminally investigate or prosecute any alcohol or drug abuse patient.[facility] HospitalIn the event this information is protected by the Federal Confidentiality of Alcohol and Drug Abuse Patient Records regulations: The Federal rules restrict any use of the information to criminally investigate or prosecute any alcohol or drug abuse patient.[facility] HospitalIn the event this information is protected by the Federal Confidentiality of Alcohol and Drug Abuse Patient Records regulations: The Federal rules restrict any use of the information to criminally investigate or prosecute any alcohol or drug abuse patient.[facility] HospitalIn the event this information is protected by the Federal Confidentiality of Alcohol and Drug Abuse Patient Records regulations: The Federal rules restrict any use of the information to criminally investigate or prosecute any alcohol or drug abuse patient.[facility] HospitalIn the event this information is protected by the Federal Confidentiality of Alcohol and Drug Abuse Patient Records regulations: The Federal rules restrict any use of the information to criminally investigate or prosecute any alcohol or drug abuse patient.[facility] HospitalIn the event this information is protected by the Federal Confidentiality of Alcohol and Drug Abuse Patient Records regulations: The Federal rules restrict any use of the information to criminally investigate or prosecute any alcohol or drug abuse patient.[facility] HospitalIn the event this information is protected by the Federal Confidentiality of Alcohol and Drug Abuse Patient Records regulations: The Federal rules restrict any use of the information to criminally investigate or prosecute any alcohol or drug abuse patient.[facility] HospitalIn the event this information is protected by the Federal Confidentiality of Alcohol and Drug Abuse Patient Records regulations: The Federal rules restrict any use of the information to criminally investigate or prosecute any alcohol or drug abuse patient.[facility] HospitalIn the event this information is protected by the Federal Confidentiality of Alcohol and Drug Abuse Patient Records regulations: The Federal rules restrict any use of the information to criminally investigate or prosecute any alcohol or drug abuse patient.[facility] HospitalIn the event this information is protected by the Federal Confidentiality of Alcohol and Drug Abuse Patient Records regulations: The Federal rules restrict any use of the information to criminally investigate or prosecute any alcohol or drug abuse patient.[facility] HospitalIn the event this information is protected by the Federal Confidentiality of Alcohol and Drug Abuse Patient Records regulations: The Federal rules restrict any use of the information to criminally investigate or prosecute any alcohol or drug abuse patient.[facility] HospitalIn the event this information is protected by the Federal Confidentiality of Alcohol and Drug Abuse Patient Records regulations: The Federal rules restrict any use of the information to criminally investigate or prosecute any alcohol or drug abuse patient.[facility] HospitalIn the event this information is protected by the Federal Confidentiality of Alcohol and Drug Abuse Patient Records regulations: The Federal rules restrict any use of the information to criminally investigate or prosecute any alcohol or drug abuse patient.[facility] HospitalIn the event this information is protected by the Federal Confidentiality of Alcohol and Drug Abuse Patient Records regulations: The Federal rules restrict any use of the information to criminally investigate or prosecute any alcohol or drug abuse patient.[facility] HospitalIn the event this information is protected by the Federal Confidentiality of Alcohol and Drug Abuse Patient Records regulations: The Federal rules restrict any use of the information to criminally investigate or prosecute any alcohol or drug abuse patient.[facility] HospitalIn the event this information is protected by the Federal Confidentiality of Alcohol and Drug Abuse Patient Records regulations: The Federal rules restrict any use of the information to criminally investigate or prosecute any alcohol or drug abuse patient.[facility] HospitalIn the event this information is protected by the Federal Confidentiality of Alcohol and Drug Abuse Patient Records regulations: The Federal rules restrict any use of the information to criminally investigate or prosecute any alcohol or drug abuse patient.[facility] HospitalIn the event this information is protected by the Federal Confidentiality of Alcohol and Drug Abuse Patient Records regulations: The Federal rules restrict any use of the information to criminally investigate or prosecute any alcohol or drug abuse patient.[facility] HospitalIn the event this information is protected by the Federal Confidentiality of Alcohol and Drug Abuse Patient Records regulations: The Federal rules restrict any use of the information to criminally investigate or prosecute any alcohol or drug abuse patient.[facility] HospitalIn the event this information is protected by the Federal Confidentiality of Alcohol and Drug Abuse Patient Records regulations: The Federal rules restrict any use of the information to criminally investigate or prosecute any alcohol or drug abuse patient.[facility] HospitalIn the event this information is protected by the Federal Confidentiality of Alcohol and Drug Abuse Patient Records regulations: The Federal rules restrict any use of the information to criminally investigate or prosecute any alcohol or drug abuse patient.[facility] HospitalIn the event this information is protected by the Federal Confidentiality of Alcohol and Drug Abuse Patient Records regulations: The Federal rules restrict any use of the information to criminally investigate or prosecute any alcohol or drug abuse patient.[facility] HospitalIn the event this information is protected by the Federal Confidentiality of Alcohol and Drug Abuse Patient Records regulations: The Federal rules restrict any use of the information to criminally investigate or prosecute any alcohol or drug abuse patient.[facility] HospitalIn the event this information is protected by the Federal Confidentiality of Alcohol and Drug Abuse Patient Records regulations: The Federal rules restrict any use of the information to criminally investigate or prosecute any alcohol or drug abuse patient.[facility] HospitalIn the event this information is protected by the Federal Confidentiality of Alcohol and Drug Abuse Patient Records regulations: The Federal rules restrict any use of the information to criminally investigate or prosecute any alcohol or drug abuse patient.[facility] HospitalIn the event this information is protected by the Federal Confidentiality of Alcohol and Drug Abuse Patient Records regulations: The Federal rules restrict any use of the information to criminally investigate or prosecute any alcohol or drug abuse patient.[facility] HospitalIn the event this information is protected by the Federal Confidentiality of Alcohol and Drug Abuse Patient Records regulations: The Federal rules restrict any use of the information to criminally investigate or prosecute any alcohol or drug abuse patient.[facility] HospitalIn the event this information is protected by the Federal Confidentiality of Alcohol and Drug Abuse Patient Records regulations: The Federal rules restrict any use of the information to criminally investigate or prosecute any alcohol or drug abuse patient.[facility] HospitalIn the event this information is protected by the Federal Confidentiality of Alcohol and Drug Abuse Patient Records regulations: The Federal rules restrict any use of the information to criminally investigate or prosecute any alcohol or drug abuse patient.[facility] HospitalIn the event this information is protected by the Federal Confidentiality of Alcohol and Drug Abuse Patient Records regulations: The Federal rules restrict any use of the information to criminally investigate or prosecute any alcohol or drug abuse patient.[facility] HospitalIn the event this information is protected by the Federal Confidentiality of Alcohol and Drug Abuse Patient Records regulations: The Federal rules restrict any use of the information to criminally investigate or prosecute any alcohol or drug abuse patient.[facility] HospitalIn the event this information is protected by the Federal Confidentiality of Alcohol and Drug Abuse Patient Records regulations: The Federal rules restrict any use of the information to criminally investigate or prosecute any alcohol or drug abuse patient.[facility] HospitalIn the event this information is protected by the Federal Confidentiality of Alcohol and Drug Abuse Patient Records regulations: The Federal rules restrict any use of the information to criminally investigate or prosecute any alcohol or drug abuse patient.[facility] HospitalIn the event this information is protected by the Federal Confidentiality of Alcohol and Drug Abuse Patient Records regulations: The Federal rules restrict any use of the information to criminally investigate or prosecute any alcohol or drug abuse patient.[facility] HospitalIn the event this information is protected by the Federal Confidentiality of Alcohol and Drug Abuse Patient Records regulations: The Federal rules restrict any use of the information to criminally investigate or prosecute any alcohol or drug abuse patient.[facility] HospitalIn the event this information is protected by the Federal Confidentiality of Alcohol and Drug Abuse Patient Records regulations: The Federal rules restrict any use of the information to criminally investigate or prosecute any alcohol or drug abuse patient.[facility] HospitalIn the event this information is protected by the Federal Confidentiality of Alcohol and Drug Abuse Patient Records regulations: The Federal rules restrict any use of the information to criminally investigate or prosecute any alcohol or drug abuse patient.[facility] HospitalIn the event this information is protected by the Federal Confidentiality of Alcohol and Drug Abuse Patient Records regulations: The Federal rules restrict any use of the information to criminally investigate or prosecute any alcohol or drug abuse patient.[facility] Reason for Visit (unrecogniz ed section and content) Reason Comments Consult Specialty Diagnoses / Procedures Referred By Contac t Referred To Contact Diagnoses Anal squamous cell carcinoma (HCC) Procedures CONSULT TO HEMATOLOGY/ONCOLOGY OFFICE/OUTPATIENT NEW HIGH MDM 60-74 MINUTES Ramiro Cheung MD [address] [place] [address] Referral ID Status Reason Start Date Expiration Date V isits Requested Visits Authorized [id number] Closed PCP Requested Referral 05/22/2021 05/22/2022 1 1 Reason Comments Consult Specialty Diagnoses / Procedures Referred By Contac t Referred To Contact Radiation Oncology Diagnoses Anal squamous cell carcinoma (HCC) Procedures RAD/ONC CONSULT OFFICE/OUTPATIENT NEW HIGH MDM 60-74 MINUTES Ramiro Cheung MD [address] [place] [id number] Referral ID Status Reason Start Date Expiration Date V isits Requested Visits Authorized [id number] Closed PCP Requested Referral 05/22/2021 05/22/2022 1 [...] Procedures CONSULT TO ONCOLOGY OFFICE/OUTPATIENT NEW HIGH [facility] 60-74 MINUTES Caty Bowens MD [address] [place] [address] Referral ID Status Reason Start Date Expiration Date V isits Requested Visits Authorized [id number] Closed PCP Requested Referral 06/05/2021 05/29/2022 1 1 Reason Comments Follow Up Reason Comments Patient Question Reason Comments Benefits Investigation Reason Comments Blood Draw (CVAD) Reason Comments Radiotherapy On-treatment Visit Reason Comments Yarn Conditioner - Other Follow-up Reason Comments Established Patient [...] PELVIS W/O & W/CONTRAST MATERIAL Alexia Rao APRN.FURNITURE INSPECTOR [address] [place] [address] Mr Imaging Referral ID Status Reason Start Date Expiration Date V isits Requested Visits Authorized [id number] Closed Auto-Generate d Referral 07/18/2021 08/17/2022 1 [...] Ramiro Cheung MD [address] [place] [address] Ct Imaging Referral ID Status Reason Start Date Expiration Date V isits Requested Visits Authorized [id number] Closed Auto-Generate d Referral 12/17/2021 01/16/2023 1 [...] random spots in his head. Reason Comments Yarn Conditioner - Other Reason Comments Home Care Need [...] COLON SINGLE CONTRAST STUDY Ramiro Cheung MD [address] [place] [address] Xr Imaging Referral ID Status Reason Start Date Expiration Date V isits Requested Visits Authorized [id number] Closed Auto-Generate d Referral 04/01/2022 05/01/2023 1 [...] [place] [address] [place] [address] Referral ID Status Reason Start Date Expiration Date Visits Requested Visits Authorized [id number] Pending Review Perform Procedure 03/05/2023 03/04/2024 1 [...] HIGH MDM 60 MINUTES Ramiro Cheung MD [address] [place] [address] Referral ID Status Reason Start Date Expiration Date V isits Requested Visits Authorized [id number] Closed PCP Requested Referral 08/03/2023 08/02/2024 1 1 Reason Comments Radiology MRI Specialty Diagnoses / Procedures Referred By Karen lira Referred To Contact MR IMAGING Diagnoses History of rectal cancer Procedures MRI RECTUM WO/W IVCON MRI PELVIS W/O & W/CONTRAST MATERIAL Ramiro Cheung MD [address] [place] [address] [place] [address] Referral ID Status Reason Start Date Expiration Date V isits Requested Visits Authorized [id number] Closed Auto-Generate d Referral 08/03/2023 09/01/2024 1 1 Reason Onset Date Comments Refill Request 10/22/2023 Reason Comments Patient Question left shoulder pain 1 0/10 Reason Comments Pain (Shoulder Pain) lefthas been to PT at [facility] per Dr. Siddiqui but did not help.MRI is scheduled 12/09/23 through [facility] Reason Comments Pre-Op Exam ACDF of C5-7 [...] Care Teams (unrecognized sec tion and content) Painter Tumbling Barrel Relationship Specialty Start Date End Date Pcp, No PCP - General 04/29/21 11/28/21 Caty Bowens MD [address] [place] [address] Hematology/Oncology 05/29/21 Painter Tumbling Barrel Relationship Specialty Start Date End Date Pcp, No PCP - General 04/29/21 11/28/21 Caty Bowens MD [address] [place] [address] Hematology/Oncology 05/29/21 Painter Tumbling Barrel Relationship Specialty Start Date End Date Pcp, No PCP - General 04/29/21 11/28/21 Caty Bowens MD [address] [place] [address] Hematology/Oncology 05/29/21 Marisela Rome MD, [address] [place], [place] [phone] Physician Radiation Oncology 05/30/21 Painter Tumbling Barrel Relationship Specialty Start Date End Date Pcp, No PCP - General 04/29/21 11/28/21 [place] [address] [place] [address] Hematology/Oncology 05/29/21 Marisela Rome MD, [address] [place], [place] [phone] Physician Radiation Oncology 05/30/21 Painter Tumbling Barrel Relationship Specialty Start Date End Date Pcp, No PCP - General 04/29/21 11/28/21 Caty Bowens MD [address] [place] [address] Hematology/Oncology 05/29/21 Marisela Rome MD, [address] [place], [place] [phone] Physician Radiation Oncology 05/30/21 Painter Tumbling Barrel Relationship Specialty Start Date End Date Pcp, No PCP - General 04/29/21 11/28/21 Caty Bowens MD [address] [place] [address] Hematology/Oncology 05/29/21 Marisela Rome MD, [address] [place], [place] [id number] [phone] Physician Radiation Oncology 05/30/21 Amelia Souza, RN Specialty Yarn Conditioner Oncology 06/04/21 Painter Tumbling Barrel Relationship Specialty Start Date End Date Pcp, No PCP - General 04/29/21 11/28/21 Caty Bowens MD [address] [place] [address] Hematology/Oncology 05/29/21 Marisela Rome MD, [address] [place] [address] Physician Radiation Oncology 05/30/21 Painter Tumbling Barrel Relationship Specialty Start Date End Date Pcp, No PCP - General 04/29/21 11/28/21 Caty Bowens MD [address] [place], [place] [phone] Hematology/Oncology 05/29/21 Marisela Rome MD, [address] [place] [address] Physician Radiation Oncology 05/30/21 Amelia Souza RN Specialty Yarn Conditioner Oncology 06/04/21 Painter Tumbling Barrel Relationship Specialty Start Date End Date Pcp, No PCP - General 04/29/21 11/28/21 Caty Bowens MD [address] [place] [address] Hematology/Oncology 05/29/21 Marisela Rome MD, [address] [place] [address] Physician Radiation Oncology 05/30/21 Amelia Souza RN Specialty Yarn Conditioner Oncology 06/04/21 Painter Tumbling Barrel Relationship Specialty Start Date End Date Pcp, No PCP - General 04/29/21 11/28/21 Caty Bowens MD [address] [place] [address] Hematology/Oncology 05/29/21 Marisela Rome MD, [address] [place] [address] Physician Radiation Oncology 05/30/21 Amelia Souza RN Specialty Yarn Conditioner Oncology 06/04/21 Painter Tumbling Barrel Relationship Specialty Start Date End Date Pcp, No PCP - General 04/29/21 11/28/21 Caty Bowens MD [address] [place], [place] [id number] Hematology/Oncology 05/29/21 Marisela Rome MD, [address] [facility] [address] [place], [place] [phone] Physician Radiation Oncology 05/30/21 Amelia Souza RN Specialty Yarn Conditioner Oncology 06/04/21 Painter Tumbling Barrel Relationship Specialty Start Date End Date Pcp, No PCP - General 04/29/21 11/28/21 Caty Bowens MD [address] [place] [address] Hematology/Oncology 05/29/21 Marisela Rome MD, [address] [facility] [place] [address] Physician Radiation Oncology 05/30/21 Amelia Souza RN Specialty Yarn Conditioner Oncology 06/04/21 Painter Tumbling Barrel Relationship Specialty Start Date End Date Pcp, No PCP - General 04/29/21 11/28/21 Caty Bowens MD [address] [place] [address] Hematology/Oncology 05/29/21 Marisela Rome MD, [address] [place] [address] Physician Radiation Oncology 05/30/21 Amelia Souza RN Specialty Yarn Conditioner Oncology 06/04/21 Painter Tumbling Barrel Relationship Specialty Start Date End Date Pcp, No PCP - General 04/29/21 11/28/21 Caty Bowens MD [address] [place], [place] [phone] Hematology/Oncology 05/29/21 Marisela Rome MD, [address] [place] [id number] [phone] Physician Radiation Oncology 05/30/21 Amelia Souza RN Specialty Yarn Conditioner Oncology 06/04/21 Painter Tumbling Barrel Relationship Specialty Start Date End Date Pcp, No PCP - General 04/29/21 11/28/21 Caty Bowens MD [address] [place], [place] [phone] Hematology/Oncology 05/29/21 Marisela Rome MD, MD [address] [place] [address] Physician Radiation Oncology 05/30/21 Amelia Souza RN Specialty Yarn Conditioner Oncology 06/04/21 Painter Tumbling Barrel Relationship Specialty Start Date End Date Pcp, No PCP - General 04/29/21 11/28/21 Caty Bowens MD [address] [place] [address] Hematology/Oncology 05/29/21 Marisela Rome MD, [address] [place] [address] Physician Radiation Oncology 05/30/21 Amelia Souza RN Specialty Yarn Conditioner Oncology 06/04/21 Painter Tumbling Barrel Relationship Specialty Start Date End Date Pcp, No PCP - General 04/29/21 11/28/21 Caty Bowens MD [address] [place] [address] Hematology/Oncology 05/29/21 Marisela Rome MD, [address] [place] [address] Physician Radiation Oncology 05/30/21 Amelia Souza RN Specialty Yarn Conditioner Oncology 06/04/21 Painter Tumbling Barrel Relationship Specialty Start Date End Date Pcp, No PCP - General 04/29/21 11/28/21 Caty Bowens MD [address] [place] [address] Hematology/Oncology 05/29/21 Marisela Rome MD, [address] [place], [place] [phone] Physician Radiation Oncology 05/30/21 Amelia Souza RN Specialty Yarn Conditioner Oncology 06/04/21 Painter Tumbling Barrel Relationship Specialty Start Date End Date Pcp, No PCP - General 04/29/21 11/28/21 Caty Bowens MD [address] [place] [address] Hematology/Oncology 05/29/21 Marisela Rome MD, [address] [place], [place] [phone] Physician Radiation Oncology 05/30/21 Amelia Souza RN Specialty Yarn Conditioner Oncology 06/04/21 Painter Tumbling Barrel Relationship Specialty Start Date End Date Pcp, No PCP - General 04/29/21 11/28/21 Caty Bowens MD [address] [place] [address] Hematology/Oncology 05/29/21 Marisela Rome MD, [address] [place] [address] Physician Radiation Oncology 05/30/21 Amelia Souza RN Specialty Yarn Conditioner Oncology 06/04/21 Painter Tumbling Barrel Relationship Specialty Start Date End Date Pcp, No PCP - General 04/29/21 11/28/21 Caty Bowens MD [address] [place] [address] Hematology/Oncology 05/29/21 Marisela Rome MD, [address] [place], [place] [phone] Physician Radiation Oncology 05/30/21 Amelia Souza RN Specialty Yarn Conditioner Oncology 06/04/21 Painter Tumbling Barrel Relationship Specialty Start Date End Date Pcp, No PCP - General 04/29/21 11/28/21 Caty Bowens MD [address] [place], [place] [phone] Hematology/Oncology 05/29/21 Marisela Rome MD, [address] [place], [place] [id number] [phone] Physician Radiation Oncology 05/30/21 Amelia Souza RN Specialty Yarn Conditioner Oncology 06/04/21 Painter Tumbling Barrel Relationship Specialty Start Date End Date Pcp, No PCP - General 04/29/21 11/28/21 Caty Bowens MD [address] [place], [place] [phone] Hematology/Oncology 05/29/21 Marisela Rome MD, [address] [facility] [place] [phone] Physician Radiation Oncology 05/30/21 Amelia Souza RN Specialty Yarn Conditioner Oncology 06/04/21 Painter Tumbling Barrel Relationship Specialty Start Date End Date Pcp, No PCP - General 04/29/21 11/28/21 Caty Bowens MD [address] [place] [address] Hematology/Oncology 05/29/21 Marisela Rome MD, [address] [place] [address] Physician Radiation Oncology 05/30/21 Amelia Souza RN Specialty Yarn Conditioner Oncology 06/04/21 Painter Tumbling Barrel Relationship Specialty Start Date End Date Pcp, No PCP - General 04/29/21 11/28/21 Caty Bowens MD [address] [place], [place] [address] Hematology/Oncology 05/29/21 Marisela Rome MD, [address] [place] [address] Physician Radiation Oncology 05/30/21 Amelia Souza RN Specialty Yarn Conditioner Oncology 06/04/21 Painter Tumbling Barrel Relationship Specialty Start Date End Date Pcp, No PCP - General 04/29/21 11/28/21 Caty Bowens MD [address] [place], [place] [phone] Hematology/Oncology 05/29/21 Marisela Rome MD, [address] [place] [address] Physician Radiation Oncology 05/30/21 Amelia Souza RN Specialty Yarn Conditioner Oncology 06/04/21 Painter Tumbling Barrel Relationship Specialty Start Date End Date Pcp, No PCP - General 04/29/21 11/28/21 Caty Bowens MD [address] [place] [address] Hematology/Oncology 05/29/21 Marisela Rome MD, [address] [place] [address] Physician Radiation Oncology 05/30/21 Amelia Souza RN Specialty Yarn Conditioner Oncology 06/04/21 Painter Tumbling Barrel Relationship Specialty Start Date End Date Pcp, No PCP - General 04/29/21 11/28/21 Caty Bowens MD [address] [place] [address] Hematology/Oncology 05/29/21 Marisela Rome MD, [address] [place] [address] Physician Radiation Oncology 05/30/21 Amelia Souza RN Specialty Yarn Conditioner Oncology 06/04/21 Painter Tumbling Barrel Relationship Specialty Start Date End Date Pcp, No PCP - General 04/29/21 11/28/21 Caty Bowens MD [address] [place] [address] Hematology/Oncology 05/29/21 Marisela Rome MD, [address] [place], [place] [address] [phone] Physician Radiation Oncology 05/30/21 Amelia Souza RN Specialty Yarn Conditioner Oncology 06/04/21 Painter Tumbling Barrel Relationship Specialty Start Date End Date Pcp, No PCP - General 04/29/21 11/28/21 Caty Bowens MD [address] [place] [address] Hematology/Oncology 05/29/21 Marisela Rome MD, [address] [place] [address] Physician Radiation Oncology 05/30/21 Amelia Souza RN Specialty Yarn Conditioner Oncology 06/04/21 Painter Tumbling Barrel Relationship Specialty Start Date End Date Pcp, No PCP - General 04/29/21 11/28/21 Caty Bowens MD [address] [place] [address] Hematology/Oncology 05/29/21 Marisela Rome MD, [address] [place] [address] Physician Radiation Oncology 05/30/21 Amelia Souza RN Specialty Yarn Conditioner Oncology 06/04/21 Painter Tumbling Barrel Relationship Specialty Start Date End Date Pcp, No PCP - General 04/29/21 11/28/21 Caty Bowens MD [address] [place], [place] [phone] Hematology/Oncology 05/29/21 Marisela Rome MD, [address] [place] [address] Physician Radiation Oncology 05/30/21 Amelia Souza RN Specialty Yarn Conditioner Oncology 06/04/21 Painter Tumbling Barrel Relationship Specialty Start Date End Date Pcp, No PCP - General 04/29/21 11/28/21 Caty Bowens MD [address] [place], [place] [phone] Hematology/Oncology 05/29/21 Marisela Rome MD, [address] [place] [address] Physician Radiation Oncology 05/30/21 Amelia Souza RN Specialty Yarn Conditioner Oncology 06/04/21 Painter Tumbling Barrel Relationship Specialty Start Date End Date Pcp, No PCP - General 04/29/21 11/28/21 Caty Bowens MD [address] [place], [place] [phone] Hematology/Oncology 05/29/21 Marisela Rome MD, [address] [place] [address] Physician Radiation Oncology 05/30/21 Amelia Souza RN Specialty Yarn Conditioner Oncology 06/04/21 Painter Tumbling Barrel Relationship Specialty Start Date End Date Pcp, No PCP - General 04/29/21 11/28/21 Caty Bowens MD [address] [place] [address] Hematology/Oncology 05/29/21 Marisela Rome MD, [address] [place] [address] Physician Radiation Oncology 05/30/21 Amelia Souza RN Specialty Yarn Conditioner Oncology 06/04/21 Painter Tumbling Barrel Relationship Specialty Start Date End Date Pcp, No PCP - General 04/29/21 11/28/21 Caty Bowens MD [address] [place] [address] Hematology/Oncology 05/29/21 Marisela Rome MD, [address] [place], [place] [phone] Physician Radiation Oncology 05/30/21 Amelia Souza RN Specialty Yarn Conditioner Oncology 06/04/21 Painter Tumbling Barrel Relationship Specialty Start Date End Date Pcp, No PCP - General 04/29/21 11/28/21 Caty Bowens MD [address] [place] [address] Hematology/Oncology 05/29/21 Marisela Rome MD, [address] [place] [address] Physician Radiation Oncology 05/30/21 Amelia Souza RN Specialty Yarn Conditioner Oncology 06/04/21 Painter Tumbling Barrel Relationship Specialty Start Date End Date Pcp, No PCP - General 04/29/21 11/28/21 Caty Bowens MD [address] [place] [address] Hematology/Oncology 05/29/21 Marisela Rome MD, [address] [facility] [place] [address] Physician Radiation Oncology 05/30/21 Amelia Souza RN Specialty Yarn Conditioner Oncology 06/04/21 Painter Tumbling Barrel Relationship Specialty Start Date End Date Pcp, No PCP - General 04/29/21 11/28/21 Caty Bowens MD [address] [place] [address] Hematology/Oncology 05/29/21 Marisela Rome MD, [address] [place], [place] [phone] Physician Radiation Oncology 05/30/21 Amelia Souza, RN Specialty Yarn Conditioner Oncology 06/04/21 Painter Tumbling Barrel Relationship Specialty Start Date End Date Caty Bowens MD [address] [place] [address] Hematology/Oncology 05/29/21 Marisela Rome MD, [address] [place], [place] [phone] Physician Radiation Oncology 05/30/21 Amelia Souza RN Specialty Yarn Conditioner Oncology 06/04/21 Painter Tumbling Barrel Relationship Specialty Start Date End Date Caty Bowens MD [address] [place] [address] Hematology/Oncology 05/29/21 Marisela Rome MD, [address] [place], [place] [phone] Physician Radiation Oncology 05/30/21 Amelia Souza RN Specialty Yarn Conditioner Oncology 06/04/21 Painter Tumbling Barrel Relationship Specialty Start Date End Date Caty Bowens MD [address] [place] [address] Hematology/Oncology 05/29/21 Marisela Rome MD, [address] [place], [place] [phone] Physician Radiation Oncology 05/30/21 Amelia Souza RN Specialty Yarn Conditioner Oncology 06/04/21 Helen Roa [address] [address] Cardiology 01/07/22 Painter Tumbling Barrel Relationship Specialty Start Date End Date Caty Bowens MD [address] [place] [address] Hematology/Oncology 05/29/21 Marisela Rome MD, [address] [place] [address] Physician Radiation Oncology 05/30/21 Amelia Souza RN Specialty Yarn Conditioner Oncology 06/04/21 Helen Roa [address] [address] Cardiology 01/07/22 Painter Tumbling Barrel Relationship Specialty Start Date End Date Caty Bowens MD [address] [place] [address] Hematology/Oncology 05/29/21 Marisela Rome MD, [address] [place] [address] Physician Radiation Oncology 05/30/21 Amelia Souza RN Specialty Yarn Conditioner Oncology 06/04/21 Helen Roa [address] [place] [phone] Cardiology 01/07/22 Painter Tumbling Barrel Relationship Specialty Start Date End Date Caty Bowens MD [address] [place] [address] Hematology/Oncology 05/29/21 Marisela Rome MD, [address] [place] [address] Physician Radiation Oncology 05/30/21 Amelia Souza RN Specialty Yarn Conditioner Oncology 06/04/21 Helen Roa [address] [address] Cardiology 01/07/22 Painter Tumbling Barrel Relationship Specialty Start Date End Date Caty Bowens MD [address] [place] [address] Hematology/Oncology 05/29/21 Marisela Rome MD, [address] [place] [address] Physician Radiation Oncology 05/30/21 Amelia Souza RN Specialty Yarn Conditioner Oncology 06/04/21 Helen Roa [address] [address] Cardiology 01/07/22 Painter Tumbling Barrel Relationship Specialty Start Date End Date Caty Bowens MD [address] [place] [address] Hematology/Oncology 05/29/21 Marisela Rome MD, [address] [place] [address] Physician Radiation Oncology 05/30/21 Amelia Souza RN Specialty Yarn Conditioner Oncology 06/04/21 Helen Roa [address] [address] Cardiology 01/07/22 Painter Tumbling Barrel Relationship Specialty Start Date End Date Caty Bowens MD [address] [place] [address] Hematology/Oncology 05/29/21 Marisela Rome MD, [address] [place] [address] Physician Radiation Oncology 05/30/21 Doup, Amelia, RN Specialty Yarn Conditioner Oncology 06/04/21 Helen Roa [address] [address] Cardiology 01/07/22 Ramiro Cheung MD [address] [place] [address] Referring Colon and Rectal Surgery 01/28/22 Ramiro Cheung MD [address] [place] [address] Home Care Provider Colon and Rectal Surgery 01/28/22 Leandro Cruz, DERRICK [address] [place], [place] [id number] Process Design Chemical Engineer Post Acute Care 01/28/22 Painter Tumbling Barrel Relationship Specialty Start Date End Date Caty Bowens MD [address] [place] [address] Hematology/Oncology 05/29/21 Marisela Rome MD, [address] [place] [address] Physician Radiation Oncology 05/30/21 Amelia Souza RN Specialty Yarn Conditioner Oncology 06/04/21 Helen Roa [address] [address] Cardiology 01/07/22 Ramiro Cheung MD [address] [place] [address] Referring Colon and Rectal Surgery 01/28/22 Ramiro Cheung MD [address] [place] [address] Home Care Provider Colon and Rectal Surgery 01/28/22 Leandro Cruz RN [address] [place] [address] Process Design Chemical Engineer Post Acute Care 01/28/22 Painter Tumbling Barrel Relationship Specialty Start Date End Date Caty Bowens MD [address] [place] [address] Hematology/Oncology 05/29/21 Marisela Rome MD, [address] [place] [address] Physician Radiation Oncology 05/30/21 Amelia Souza RN Specialty Yarn Conditioner Oncology 06/04/21 Helen Roa [address] [address] Cardiology 01/07/22 Ramiro Cheung MD [address] [place] [address] Referring Colon and Rectal Surgery 01/28/22 Ramiro Cheung MD [address] [place] [address] Home Care Provider Colon and Rectal Surgery 01/28/22 Leandro Cruz RN [address] [place], [place] [id number] Process Design Chemical Engineer Post Acute Care 01/28/22 Painter Tumbling Barrel Relationship Specialty Start Date End Date Caty Bowens MD [address] [place] [address] Hematology/Oncology 05/29/21 Marisela Rome MD, [address] [place] [address] Physician Radiation Oncology 05/30/21 Amelia Souza RN Specialty Yarn Conditioner Oncology 06/04/21 Helen Roa [address] [address] Cardiology 01/07/22 Ramiro Cheung MD [address] [place] [address] Referring Colon and Rectal Surgery 01/28/22 Ramiro Cheung MD [address] [place] [address] Home Care Provider Colon and Rectal Surgery 01/28/22 Leandro Cruz RN [address] [place], [place] [id number] Process Design Chemical Engineer Post Acute Care 01/28/22 Painter Tumbling Barrel Relationship Specialty Start Date End Date Caty Bowens MD [address] [place] [address] Hematology/Oncology 05/29/21 Marisela Rome MD, [address] [place], [place] [phone] Physician Radiation Oncology 05/30/21 Amelia Souza, DERRICK Specialty Yarn Conditioner Oncology 06/04/21 Helen Roa ANDREA [address] [place] [phone] Cardiology 01/07/22 Ramiro Cheung MD [address] [place] [address] Referring Colon and Rectal Surgery 01/28/22 Ramiro Cheung MD [address] [place] [address] Home Care Provider Colon and Rectal Surgery 01/28/22 Leandro Cruz RN [address] [place] [address] Process Design Chemical Engineer Post Acute Care 01/28/22 Painter Tumbling Barrel Relationship Specialty Start Date End Date Caty Bowens MD [address] [place] [address] Hematology/Oncology 05/29/21 Marisela Rome MD, [address] [place] [address] Physician Radiation Oncology 05/30/21 Amelia Souza, RN Specialty Yarn Conditioner Oncology 06/04/21 Helen Roa [address] [address] Cardiology 01/07/22 Ramiro Cheung MD [address] [address] Referring Colon and Rectal Surgery 01/28/22 Ramiro Cheung MD [address] [address] Home Care Provider Colon and Rectal Surgery 01/28/22 Leandro Cruz, RN [address] [place] [address] Process Design Chemical Engineer Post Acute Care 01/28/22 Painter Tumbling Barrel Relationship Specialty Start Date End Date Caty Bowens MD [address] [place] [address] Hematology/Oncology 05/29/21 Marisela Rome MD, [address] [place] [address] Physician Radiation Oncology 05/30/21 Amelia Souza, RN Specialty Yarn Conditioner Oncology 06/04/21 Helen Roa [address] [address] Cardiology 01/07/22 Ramiro Cheung MD [address] [place] [address] Referring Colon and Rectal Surgery 01/28/22 Ramiro Cheung MD [address] [address] Home Care Provider Colon and Rectal Surgery 01/28/22 Leandro Cruz, DERRICK [address] [place], [place] [id number] Process Design Chemical Engineer Post Acute Care 01/28/22 Painter Tumbling Barrel Relationship Specialty Start Date End Date Caty Bowens MD [address] [place] [address] Hematology/Oncology 05/29/21 Marisela Rome MD, [address] [place], [place] [phone] Physician Radiation Oncology 05/30/21 Amelia Souza RN Specialty Yarn Conditioner Oncology 06/04/21 Helen Roa [address] [phone] Cardiology 01/07/22 Ramiro Cheung MD [address] [address] Referring Colon and Rectal Surgery 02/13/22 03/02/22 Ramiro Cheung MD [address] [address] Home Care Provider Colon and Rectal Surgery 02/13/22 Leandro Cruz, DERRICK [address] [place] [address] Process Design Chemical Engineer Post Acute Care 02/24/22 Painter Tumbling Barrel Relationship Specialty Start Date End Date Caty Bowens MD [address] [place] [address] Hematology/Oncology 05/29/21 Marisela Rome MD, [address] [place] [address] Physician Radiation Oncology 05/30/21 Amelia Souza, RN Specialty Yarn Conditioner Oncology 06/04/21 Helen Roa [address] [address] Cardiology 01/07/22 Ramiro Cheung MD [address] [address] Referring Colon and Rectal Surgery 02/13/22 03/02/22 Ramiro Cheung MD [address] [address] Home Care Provider Colon and Rectal Surgery 02/13/22 Leandro Cruz, DERRICK [address] [place], [place] [id number] Process Design Chemical Engineer Post Acute Care 02/24/22 Painter Tumbling Barrel Relationship Specialty Start Date End Date Caty Bowens MD [address] [place] [address] Hematology/Oncology 05/29/21 Marisela Rome MD, [address] [place] [address] Physician Radiation Oncology 05/30/21 Amelia Souza, RN Specialty Yarn Conditioner Oncology 06/04/21 Helen Roa [address] [address] Cardiology 01/07/22 Ramiro Cheung MD [address] [address] Referring Colon and Rectal Surgery 02/13/22 03/02/22 Ramiro Cheung MD [address] [place] [address] Home Care Provider Colon and Rectal Surgery 02/13/22 Leandro Cruz RN [address] [place], [place] [id number] Process Design Chemical Engineer Post Acute Care 02/24/22 Painter Tumbling Barrel Relationship Specialty Start Date End Date Caty Bowens MD [address] [place] [address] Hematology/Oncology 05/29/21 Marisela Rome MD, MD [address] [facility] [place] [address] Physician Radiation Oncology 05/30/21 Amelia Souza RN Specialty Yarn Conditioner Oncology 06/04/21 Helen Roa [address] [address] Cardiology 01/07/22 Ramiro Cheung MD [address] [place] [address] Home Care Provider Colon and Rectal Surgery 02/13/22 Leandro Cruz, DERRICK [address] [place] [address] Process Design Chemical Engineer Post Acute Care 02/24/22 Painter Tumbling Barrel Relationship Specialty Start Date End Date Caty Bowens MD [address] [place] [address] Hematology/Oncology 05/29/21 Marisela Rome MD, MD [address] [place] [address] Physician Radiation Oncology 05/30/21 Amelia Souza RN Specialty Yarn Conditioner Oncology 06/04/21 Helen Roa [address] [address] Cardiology 01/07/22 Ramiro Cheung MD [address] [place] [address] Home Care Provider Colon and Rectal Surgery 02/13/22 Leandro Cruz, DERRICK [address] [place], [place] 1135731 Process Design Chemical Engineer Post Acute Care 02/24/22 Painter Tumbling Barrel Relationship Specialty Start Date End Date Caty Bowens MD [address] [place], [place] [phone] Hematology/Oncology 05/29/21 Marisela Rome MD, [address] [place] [address] Physician Radiation Oncology 05/30/21 Amelia Souza RN Specialty Yarn Conditioner Oncology 06/04/21 Helen Roa [address] [address] Cardiology 01/07/22 Ramiro Cheung MD [address] [place] [address] Home Care Provider Colon and Rectal Surgery 02/13/22 Leandro Cruz RN [address] [place], [place] [phone] Process Design Chemical Engineer Post Acute Care 02/24/22 Painter Tumbling Barrel Relationship Specialty Start Date End Date Caty Bowens MD [address] [place], [place] [address] Hematology/Oncology 05/29/21 Marisela Rome MD, [address] [place] [address] Physician Radiation Oncology 05/30/21 Amelia Souza, RN Specialty Yarn Conditioner Oncology 06/04/21 Helen Roa [address] [address] Cardiology 01/07/22 Ramiro Cheung MD [address] [address] Home Care Provider Colon and Rectal Surgery 02/13/22 Leandro Cruz, RN [address] [place] [address] Process Design Chemical Engineer Post Acute Care 02/24/22 Gurjit Delcid MD [address] [place], [place] 0058695 Referring Internal Medicine 03/10/22 Estefany Stern, PT [address] [place], [place] 3517431 Process Design Chemical Engineer Post Acute Care 03/11/22 Painter Tumbling Barrel Relationship Specialty Start Date End Date Caty Bowens MD [address] [place], [place] [phone] Hematology/Oncology 05/29/21 Marisela Rome MD, [address] [place] [address] Physician Radiation Oncology 05/30/21 Amelia Souza, RN Specialty Yarn Conditioner Oncology 06/04/21 Helen Roa [address] [address] Cardiology 01/07/22 Ramiro Cheung MD [address] [address] Home Care Provider Colon and Rectal Surgery 02/13/22 Leandro Cruz RN [address] [place] [address] Process Design Chemical Engineer Post Acute Care 02/24/22 Gurjit Delcid MD [address] [place] [address] Referring Internal Medicine 03/10/22 Estefany Stern, PT [address] [place] [address] Process Design Chemical Engineer Post Acute Care 03/11/22 Painter Tumbling Barrel Relationship Specialty Start Date End Date Caty Bowens MD [address] [place] [phone] Hematology/Oncology 05/29/21 Marisela Rome MD, [address] [place], [place] [address] Physician Radiation Oncology 05/30/21 Amelia Souza RN Specialty Yarn Conditioner Oncology 06/04/21 Helen Roa [address] [phone] Cardiology 01/07/22 Ramiro Cheung MD [address] [address] Home Care Provider Colon and Rectal Surgery 02/13/22 Leandro Cruz, DERRICK [address] [place], [place] 8174331 Process Design Chemical Engineer Post Acute Care 02/24/22 Gurjit Delcid MD [address] [place] [address] Referring Internal Medicine 03/10/22 Estefany Stern, PT [address] [place] [address] Process Design Chemical Engineer Post Acute Care 03/11/22 Painter Tumbling Barrel Relationship Specialty Start Date End Date Caty Bowens MD [address] [place] [address] Hematology/Oncology 05/29/21 Marisela Rome MD, [address] [place] [address] Physician Radiation Oncology 05/30/21 Amelia Souza, RN Specialty Yarn Conditioner Oncology 06/04/21 Helen Roa [address] [address] Cardiology 01/07/22 Ramiro Cheung MD [address] [address] Home Care Provider Colon and Rectal Surgery 02/13/22 Leandro Cruz, DERRICK [address] [place] [address] Process Design Chemical Engineer Post Acute Care 02/24/22 Gurjit Delcid MD [address] [place] [address] Referring Internal Medicine 03/10/22 Estefany Stern, PT [address] [place] [address] Process Design Chemical Engineer Post Acute Care 03/11/22 Painter Tumbling Barrel Relationship Specialty Start Date End Date Caty Bowens MD [address] [place] [address] Hematology/Oncology 05/29/21 Marisela Rome MD, [address] [place] [address] Physician Radiation Oncology 05/30/21 Amelia Souza, RN Specialty Yarn Conditioner Oncology 06/04/21 Helen Roa [address] [address] Cardiology 01/07/22 Ramiro Cheung MD [address] [address] Home Care Provider Colon and Rectal Surgery 02/13/22 Leandro Cruz RN [address] [place], [place] [phone] Process Design Chemical Engineer Post Acute Care 02/24/22 Gurjit Delcid MD [address] [place] [address] Referring Internal Medicine 03/10/22 Estefany Stern, RANDALL [address] [place] [address] Process Design Chemical Engineer Post Acute Care 03/11/22 Painter Tumbling Barrel Relationship Specialty Start Date End Date Caty Bowens MD [address] [place] [address] Hematology/Oncology 05/29/21 Marisela Rome MD, [address] [facility] [place] [address] Physician Radiation Oncology 05/30/21 Amelia Souza RN Specialty Yarn Conditioner Oncology 06/04/21 Helen Roa [address] [address] Cardiology 01/07/22 Ramiro Cheung MD [address] [facility] [address] [address] Home Care Provider Colon and Rectal Surgery 02/13/22 Leandro Cruz RN [address] [place], [place] [id number] Process Design Chemical Engineer Post Acute Care 02/24/22 Gurjit Delcid MD [address] [place] [address] Referring Internal Medicine 03/10/22 Estefany Stern, PT [address] [place] [address] Process Design Chemical Engineer Post Acute Care 03/11/22 Painter Tumbling Barrel Relationship Specialty Start Date End Date Caty Bowens MD [address] [place] [address] Hematology/Oncology 05/29/21 Marisela Rome MD, [address] [place], [place] 61491691 Physician Radiation Oncology 05/30/21 Amelia Souza RN Specialty Yarn Conditioner Oncology 06/04/21 Helen Roa [address] [phone] Cardiology 01/07/22 Ramiro Cheung MD [address] [address] Home Care Provider Colon and Rectal Surgery 02/13/22 Leandro Cruz, DERRICK [address] [place] [address] Process Design Chemical Engineer Post Acute Care 02/24/22 Gurjit Delcid MD [address] [place] [address] Referring Internal Medicine 03/10/22 Estefany Stern, PT [address] [place] [address] Process Design Chemical Engineer Post Acute Care 03/11/22 Painter Tumbling Barrel Relationship Specialty Start Date End Date Caty Bowens MD [address] [place] [address] Hematology/Oncology 05/29/21 Marisela Rome MD, [address] [place] [address] Physician Radiation Oncology 05/30/21 Amelia Souza, RN Specialty Yarn Conditioner Oncology 06/04/21 Helen Roa [address] [address] Cardiology 01/07/22 Ramiro Cheung MD [address] [phone] Home Care Provider Colon and Rectal Surgery 02/13/22 Leandro Cruz, RN [address] [place] [address] Process Design Chemical Engineer Post Acute Care 02/24/22 Gurjit Delcid MD [address] [place], [place] [address]655295 Referring Internal Medicine 03/10/22 Estefany Stern, PT [address] [place], [place] 6245131 Process Design Chemical Engineer Post Acute Care 03/11/22 Painter Tumbling Barrel Relationship Specialty Start Date End Date Caty Bowens MD [address] [place] [address] Hematology/Oncology 05/29/21 Marisela Rome MD, [address] [place] [address] Physician Radiation Oncology 05/30/21 Amelia Souza, RN Specialty Yarn Conditioner Oncology 06/04/21 Helen Roa [address] [address] Cardiology 01/07/22 Ramiro Cheung MD [address] [address] Home Care Provider Colon and Rectal Surgery 02/13/22 Leandro Cruz, RN [address] [place], [place] [phone] Process Design Chemical Engineer Post Acute Care 02/24/22 Gurjit Delcid MD [address] [place] [address] Referring Internal Medicine 03/10/22 Estefany Stern, RANDALL [address] [place] [address] Process Design Chemical Engineer Post Acute Care 03/11/22 Painter Tumbling Barrel Relationship Specialty Start Date End Date Caty Bowens MD [address] [place] [address] Hematology/Oncology 05/29/21 Marisela Rome MD, [address] [place], [place] [phone] Physician Radiation Oncology 05/30/21 Amelia Souza, DERRICK Specialty Yarn Conditioner Oncology 06/04/21 Helen Roa [address] [phone] Cardiology 01/07/22 Ramiro Cheung MD [address] [facility] [address] [address] Home Care Provider Colon and Rectal Surgery 02/13/22 Leandro Cruz, RN [address] [place] [address] Process Design Chemical Engineer Post Acute Care 02/24/22 Gurjit Delcid MD [address] [place] [address] Referring Internal Medicine 03/10/22 Estefany Stern, PT [address] [place] [address] Process Design Chemical Engineer Post Acute Care 03/11/22 Painter Tumbling Barrel Relationship Specialty Start Date End Date Caty Bowens MD [address] [place] [address] Hematology/Oncology 05/29/21 Marisela Rome MD, [address] [place] [address] Physician Radiation Oncology 05/30/21 Amelia Souza, RN Specialty Yarn Conditioner Oncology 06/04/21 Helen Roa [address] [address] Cardiology 01/07/22 Ramiro Cheung MD [address] [address] Home Care Provider Colon and Rectal Surgery 02/13/22 Leandro Cruz, RN [address] [place] [address] Process Design Chemical Engineer Post Acute Care 02/24/22 Gurjit Delcid MD [address] [place] [address] Referring Internal Medicine 03/10/22 Estefany Stern, PT [address] [place] [address] Process Design Chemical Engineer Post Acute Care 03/11/22 Painter Tumbling Barrel Relationship Specialty Start Date End Date Caty Bowens MD [address] [place] [address] Hematology/Oncology 05/29/21 Marisela Rome MD, [address] [place] [address] Physician Radiation Oncology 05/30/21 Amelia Souza RN Specialty Yarn Conditioner Oncology 06/04/21 Helen Roa [address] [facility] [address] [address] Cardiology 01/07/22 Ramiro Cheung MD [address] [address] Home Care Provider Colon and Rectal Surgery 02/13/22 Leandro Cruz, DERRICK [address] [place] [address] Process Design Chemical Engineer Post Acute Care 02/24/22 Gurjit Delcid MD [address] [place] [address] Referring Internal Medicine 03/10/22 Estefany Stern, PT [address] [place] [address] Process Design Chemical Engineer Post Acute Care 03/11/22 Painter Tumbling Barrel Relationship Specialty Start Date End Date Caty Bowens MD [address] [place] [address] Hematology/Oncology 05/29/21 Marisela Rome MD, [address] [place], [place] [phone] Physician Radiation Oncology 05/30/21 Amelia Souza RN Specialty Yarn Conditioner Oncology 06/04/21 Helen Roa [address] [address] Cardiology 01/07/22 Ramiro Cheung MD [address] [address] Home Care Provider Colon and Rectal Surgery 02/13/22 Leandro Cruz RN [address] [place], [place] 4454331 Process Design Chemical Engineer Post Acute Care 02/24/22 Gurjit Delcid MD [address] [place], [place] 9585795 Referring Internal Medicine 03/10/22 Estefany Stern, PT [address] [place], [place] 3734631 Process Design Chemical Engineer Post Acute Care 03/11/22 Painter Tumbling Barrel Relationship Specialty Start Date End Date Katy Faust MD [address] [place], [place] [phone] PCP - General Internal Medicine 04/06/22 Caty Bowens MD [address] [place], [place] [phone] Hematology/Oncology 05/29/21 Marisela Rome MD, [address] [place], [place] [phone] Physician Radiation Oncology 05/30/21 Amelia Souza RN Specialty Yarn Conditioner Oncology 06/04/21 Hleen Roa [address] [phone] Cardiology 01/07/22 Ramiro Cheung MD [address] [address] Home Care Provider Colon and Rectal Surgery 02/13/22 Leandro Cruz RN [address] [place], [place] [id number] Process Design Chemical Engineer Post Acute Care 02/24/22 Gurjit Delcid MD [address] [place], [place] 7506395 Referring Internal Medicine 03/10/22 Estefany Stern, PT [address] [place] [id number] Process Design Chemical Engineer Post Acute Care 03/11/22 Painter Tumbling Barrel Relationship Specialty Start Date End Date Katy Faust MD [address] [place], [place] [phone] PCP - General Internal Medicine 04/06/22 Caty Bowens MD [address] [place] [phone] Hematology/Oncology 05/29/21 Marisela Rome MD, [address] [place], [place] [phone] Physician Radiation Oncology 05/30/21 Amelia Souza, RN Specialty Yarn Conditioner Oncology 06/04/21 Helen Roa [address] [phone] Cardiology 01/07/22 Ramiro Cheung MD 7496 [facility] [address] [place] [address] Home Care Provider Colon and Rectal Surgery 02/13/22 Leandro Cruz, RN [address] [place] [address] Process Design Chemical Engineer Post Acute Care 02/24/22 Gurjit Delcid MD [address] [place] [address] Referring Internal Medicine 03/10/22 Estefany Stern, PT [address] [place] [address] Process Design Chemical Engineer Post Acute Care 03/11/22 Painter Tumbling Barrel Relationship Specialty Start Date End Date Katy Faust MD [address] [place], [place] [phone] PCP - General Internal Medicine 04/06/22 Caty Bowens MD [address] [place], [place] [phone] Hematology/Oncology 05/29/21 Marisela Rome MD, [address] [place], [place] [phone] Physician Radiation Oncology 05/30/21 Amelia Souza RN Specialty Yarn Conditioner Oncology 06/04/21 Helen Roa [address] [address] Cardiology 01/07/22 Ramiro Cheung MD [address] [address] Home Care Provider Colon and Rectal Surgery 02/13/22 Leandro Cruz, DERRICK [address] [place] [address] Process Design Chemical Engineer Post Acute Care 02/24/22 Gurjit Delcid MD [address] [place], [place] [phone] Referring Internal Medicine 03/10/22 Estefany Stern, PT [address] [place], [place] 7370931 Process Design Chemical Engineer Post Acute Care 03/11/22 Painter Tumbling Barrel Relationship Specialty Start Date End Date Katy Faust MD [address] [place], [place] [phone] PCP - General Internal Medicine 04/06/22 Caty Bowens MD [address] [place], [place] 0168395 Hematology/Oncology 05/29/21 Marisela Rome MD, [address] [place], [place] [phone] Physician Radiation Oncology 05/30/21 Amelia Souza, RN Specialty Yarn Conditioner Oncology 06/04/21 Helen Roa [address] [address] Cardiology 01/07/22 Ramiro Cheung MD [address] 1560995 Home Care Provider Colon and Rectal Surgery 02/13/22 Leandro Cruz, DERRICK [address] [place] [address] Process Design Chemical Engineer Post Acute Care 02/24/22 Gurjit Delcid MD [address] [place], [place] [phone] Referring Internal Medicine 03/10/22 Estefany Stern, PT [address] [place] [address] Process Design Chemical Engineer Post Acute Care 03/11/22 Painter Tumbling Barrel Relationship Specialty Start Date End Date Katy Faust MD [address] [place], [place] [phone] PCP - General Internal Medicine 04/06/22 Caty Bwoens MD [address] [place], [place] [phone] Hematology/Oncology 05/29/21 Marisela Rome MD, [address] [place] [address] Physician Radiation Oncology 05/30/21 Amelia Souza, RN Specialty Yarn Conditioner Oncology 06/04/21 Helen Roa [address] [address] Cardiology 01/07/22 Ramiro Cheung MD [address] [place] [address] Home Care Provider Colon and Rectal Surgery 02/13/22 Leandro Cruz, RN [address] [place], [place] [id number] Process Design Chemical Engineer Post Acute Care 02/24/22 Gurjit Delcid MD 5468 [place] [address] Referring Internal Medicine 03/10/22 Estefany Stern, PT [address] [place] [address] Process Design Chemical Engineer Post Acute Care 03/11/22 Painter Tumbling Barrel Relationship Specialty Start Date End Date Katy Faust MD [address] [place], [place] [id number] PCP - General Internal Medicine 04/06/22 Caty Bowens MD [address] [place] [address] Hematology/Oncology 05/29/21 Marisela Rome MD, [address] [place], [place] [phone] Physician Radiation Oncology 05/30/21 Amelia Souza RN Specialty Yarn Conditioner Oncology 06/04/21 Helen Roa [address] [phone] Cardiology 01/07/22 [facility]ro [facility]ung MD [address] [facility] [address] [address] Home Care Provider Colon and Rectal Surgery 02/13/22 Leandro Cruz RN [address] [place] [address] Process Design Chemical Engineer Post Acute Care 02/24/22 Gurjit Delcid MD 1416 [place] [address] Referring Internal Medicine 03/10/22 AnujaLeniLeigh Estefany, PT [address] [place] [address] Process Design Chemical Engineer Post Acute Care 03/11/22 Team Status: Active [...] MD Primary Care Provider Active Carlos Trujillo OFFICE MACHINES WIRER, OFFICE MACHINES WIRER-C Attending Provider Active Team Status: Inactive Member [...] DO Attending Provider, Emergency P rovider Active Painter Tumbling Barrel Relationship Specialty Start Date End Date Katy Faust MD [address] [place], [place] [id number] PCP - General Internal Medicine 04/06/22 Caty Bowens MD 6833 [place] [address] Hematology/Oncology 05/29/21 Marisela Rome MD, [address] [place], [place] 83905691 Physician Radiation Oncology 05/30/21 Amelia Souza, DERRICK Specialty Yarn Conditioner Oncology 06/04/21 Helen Roa [address] [address] Cardiology 01/07/22 Ramiro Cheung MD [address] [address] Home Care Provider Colon and Rectal Surgery 02/13/22 Leandro Cruz, RN 0536 [place] [address] Process Design Chemical Engineer Post Acute Care 02/24/22 Gurjit Delcid MD 8750 [place], [place] 6249295 Referring Internal Medicine 03/10/22 Estefany Stern, PT [address] [place], [place] 9494731 Process Design Chemical Engineer Post Acute Care 03/11/22 Painter Tumbling Barrel Relationship Specialty Start Date End Date Katy Faust MD [address] [place], [place] [id number] PCP - General Internal Medicine 04/06/22 Caty Bowens MD 7851 [place], [place] [phone] Hematology/Oncology 05/29/21 Marisela Rome MD, [address] [place] [address] Physician Radiation Oncology 05/30/21 Amelia Souza, RN Specialty Yarn Conditioner Oncology 06/04/21 Helen Roa [address] [address] Cardiology 01/07/22 Ramiro Cheung MD [address] [place] [address] [place] [address] Home Care Provider Colon and Rectal Surgery 02/13/22 Leandro Cruz, RN [address] [place] [address] Process Design Chemical Engineer Post Acute Care 02/24/22 Gurjit Delcid MD 7660 [place], [place] 8090295 Referring Internal Medicine 03/10/22 Estefany Stern, PT [address] [place] [address] Process Design Chemical Engineer Post Acute Care 03/11/22 Painter Tumbling Barrel Relationship Specialty Start Date End Date Katy Faust MD [address] [place], [place] [id number] PCP - General Internal Medicine 04/06/22 Caty Bowens MD 5400 [place] [address] Hematology/Oncology 05/29/21 Marisela Rome MD, [address] [place], [place] 78781861 [phone] Physician Radiation Oncology 05/30/21 Amelia Souza, RN Specialty Yarn Conditioner Oncology 06/04/21 Helen Roa [address] [facility] [address] [place] [address] Cardiology 01/07/22 Ramiro Cheung MD [address] [address] Home Care Provider Colon and Rectal Surgery 02/13/22 Leandro Cruz, DERRICK [address] [place], [place] 3402431 Process Design Chemical Engineer Post Acute Care 02/24/22 Gurjit Delcid MD [address] [place] [address] Referring Internal Medicine 03/10/22 Estefany Stern, PT [address] [place], [place] 0022331 Process Design Chemical Engineer Post Acute Care 03/11/22 Painter Tumbling Barrel Relationship Specialty Start Date End Date Katy Faust MD [address] [place], [place] [id number] PCP - General Internal Medicine 04/06/22 Caty Bowens MD [address] [place] [address] Hematology/Oncology 05/29/21 Marisela Rome MD, [address] [place], [place] [phone] Physician Radiation Oncology 05/30/21 Amelia Souza RN Specialty Yarn Conditioner Oncology 06/04/21 Helen Roa [address] [address] Cardiology 01/07/22 Ramiro Cheugn MD [facility]14 [facility] [address] [address] Home Care Provider Colon and Rectal Surgery 02/13/22 Leandro Cruz RN [address] [place], [place] 0302531 Process Design Chemical Engineer Post Acute Care 02/24/22 Gurjit Delcid MD 1272 [place], [place] 3024195 Referring Internal Medicine 03/10/22 Estefany Stern, PT [address] [place], [place] 1441131 Process Design Chemical Engineer Post Acute Care 03/11/22 Painter Tumbling Barrel Relationship Specialty Start Date End Date Katy Faust MD [address] [place], [place] [id number] PCP - General Internal Medicine 04/06/22 Caty Bowens MD [address] [place] [phone] Hematology/Oncology 05/29/21 Marisela Rome MD, [address] [place], [place] 62642691 Physician Radiation Oncology 05/30/21 Amelia Souza RN Specialty Yarn Conditioner Oncology 06/04/21 Helen Roa [address] [phone] Cardiology 01/07/22 Ramiro Cheung MD [address] [place] [address] Home Care Provider Colon and Rectal Surgery 02/13/22 Leandro Cruz, RN 50[address] [place] [address] Process Design Chemical Engineer Post Acute Care 02/24/22 Gurjit Delcid MD 8374 [place] [address] Referring Internal Medicine 03/10/22 Estefany Stern, PT [address] [place], [place] 0235831 Process Design Chemical Engineer Post Acute Care 03/11/22 Painter Tumbling Barrel Relationship Specialty Start Date End Date Katy Faust MD 174 [place], [place] [id number] PCP - General Internal Medicine 04/06/22 Caty Bowens MD 2741 [place], [place] 6952895 Hematology/Oncology 05/29/21 Marisela Rome MD, [address] [place], [place] 91853691 Physician Radiation Oncology 05/30/21 Amelia Souza, DERRICK Specialty Yarn Conditioner Oncology 06/04/21 Helen Roa [address] [phone] Cardiology 01/07/22 Ramiro Cheung MD [address] [phone] Home Care Provider Colon and Rectal Surgery 02/13/22 Leandro Cruz, RN [address] [place], [place] 5558631 Process Design Chemical Engineer Post Acute Care 02/24/22 Gurjit Delcid MD 2900 [place] [address] Referring Internal Medicine 03/10/22 Estefany Stern, PT [address] [place] [address] Process Design Chemical Engineer Post Acute Care 03/11/22 Painter Tumbling Barrel Relationship Specialty Start Date End Date Katy Faust MD 174 [place], [place] [id number] PCP - General Internal Medicine 04/06/22 Caty Bowens MD 4244 [place], [place] 8956641 Hematology/Oncology 05/29/21 Marisela Rome MD, [address] [place], [place] 10628691 Physician Radiation Oncology 05/30/21 Amelia Souza, RN Specialty Yarn Conditioner Oncology 06/04/21 Helen Roa [address] [address] Cardiology 01/07/22 Ramiro Cheung MD [address] [address] Home Care Provider Colon and Rectal Surgery 02/13/22 Gurjit Delcid MD 4176 [place], [place] 1064095 Referring Internal Medicine 03/10/22 Estefany Stern, PT [address] [place], [place] 7226831 Process Design Chemical Engineer Post Acute Care 03/11/22 Painter Tumbling Barrel Relationship Specialty Start Date End Date Katy Faust MD [address] [place], [place] [id number] PCP - General Internal Medicine 04/06/22 Caty Bowens MD 1023 [place] [address] Hematology/Oncology 05/29/21 Marisela Rome MD, [address] [place] [address] Physician Radiation Oncology 05/30/21 Amelia Souza, RN Specialty Yarn Conditioner Oncology 06/04/21 Helen Roa [address] [address] Cardiology 01/07/22 [facility]amiro Cheung MD 9500 [facility] [address] [address] Home Care Provider Colon and Rectal Surgery 02/13/22 Gurjit Delcid MD 9500 [place] [address] Referring Internal Medicine 03/10/22 Estefany Stern, PT [address] [place], [place] 0265531 Process Design Chemical Engineer Post Acute Care 03/11/22 Painter Tumbling Barrel Relationship Specialty Start Date End Date Katy Faust MD [address] [place], [place] [id number] PCP - General Internal Medicine 04/06/22 [place] [address] [place] [address] Hematology/Oncology 05/29/21 Marisela Rome MD, [address] [place], [place] 79526691 Physician Radiation Oncology 05/30/21 Amelia Souza, RN Specialty Yarn Conditioner Oncology 06/04/21 Helen Roa [address] [address] Cardiology 01/07/22 Ramiro Cheung MD 9500 [facility] [address] [address] Home Care Provider Colon and Rectal Surgery 02/13/22 Gurjit Delcid MD 3933 [place] [address] Referring Internal Medicine 03/10/22 Estefany Stern, PT [address] [place] [address] Process Design Chemical Engineer Post Acute Care 03/11/22 Painter Tumbling Barrel Relationship Specialty Start Date End Date Katy Faust MD [address] [place], [place] [id number] PCP - General Internal Medicine 04/06/22 Caty Bowens MD 7453 [place], [place] 0834895 Hematology/Oncology 05/29/21 Marisela Rome MD, [address] [place], [place] 31512691 Physician Radiation Oncology 05/30/21 Amelia Souza, DERRICK Specialty Yarn Conditioner Oncology 06/04/21 Helen Roa [address] [address] Cardiology 01/07/22 Ramiro Cheung MD [address] [address] Home Care Provider Colon and Rectal Surgery 02/13/22 Gurjit Delcid MD 2270 [place] [address] Referring Internal Medicine 03/10/22 Estefany Stern, PT 4[address] [place] [address] Process Design Chemical Engineer Post Acute Care 03/11/22 Painter Tumbling Barrel Relationship Specialty Start Date End Date Katy Faust MD [address] [place], [place] [id number] PCP - General Internal Medicine 04/06/22 Caty Bowens MD 2374 [place] [address] Hematology/Oncology 05/29/21 Marisela Rome MD, [address] [place] [address] Physician Radiation Oncology 05/30/21 Amelia Souza, RN Specialty Yarn Conditioner Oncology 06/04/21 Helen Roa [address] [address] Cardiology 01/07/22 Ramiro Cheung MD [address] [phone] Home Care Provider Colon and Rectal Surgery 02/13/22 Gurjit Delcid MD [address] [place], [place] 9526495 Referring Internal Medicine 03/10/22 Estefany Stern, PT [address] [place], [place] 3412331 Process Design Chemical Engineer Post Acute Care 03/11/22 Painter Tumbling Barrel Relationship Specialty Start Date End Date Katy Faust MD [address] [place], [place] [id number] PCP - General Internal Medicine 04/06/22 Caty Bowens MD 8322 [place] [address] Hematology/Oncology 05/29/21 Marisela Rome MD, [address] [place] [address] Physician Radiation Oncology 05/30/21 Amelia Souza, RN Specialty Yarn Conditioner Oncology 06/04/21 Helen Roa [address] [address] Cardiology 01/07/22 Ramiro Cheung MD 3870 [facility] [address] [address] Home Care Provider Colon and Rectal Surgery 02/13/22 Gurjit Delcid MD 7320 [place] [address] Referring Internal Medicine 03/10/22 Estefany Stern, PT [address] [place], [place] 4209731 Process Design Chemical Engineer Post Acute Care 03/11/22 Painter Tumbling Barrel Relationship Specialty Start Date End Date Katy Faust MD [address] [place], [place] [id number] PCP - General Internal Medicine 04/06/22 [place] [address] [place] [address] Hematology/Oncology 05/29/21 Marisela Rome MD, [address] [place], [place] 77805691 Physician Radiation Oncology 05/30/21 Amelia Souza, RN Specialty Yarn Conditioner Oncology 06/04/21 Helen Roa [address] [phone] Cardiology 01/07/22 Ramiro Cheung MD [address] [address] Home Care Provider Colon and Rectal Surgery 02/13/22 Gurjit Delcid MD 5418 [place] [address] Referring Internal Medicine 03/10/22 Estefany Stern, PT [address] [place], [place] 8152431 Process Design Chemical Engineer Post Acute Care 03/11/22 Painter Tumbling Barrel Relationship Specialty Start Date End Date Katy Faust MD 174 [place], [place] [id number] PCP - General Internal Medicine 04/06/22 Caty Bowens MD [address] [place], [place] 6953495 Hematology/Oncology 05/29/21 Marisela Rome MD, [address] [place], [place] 76057691 Physician Radiation Oncology 05/30/21 Amelia Souza, DERRICK Specialty Yarn Conditioner Oncology 06/04/21 Helen Roa [address] [phone] Cardiology 01/07/22 Ramiro Cheung MD [address] [address] Home Care Provider Colon and Rectal Surgery 02/13/22 Leandro Cruz, RN [address] [place], [place] 7626631 Process Design Chemical Engineer Post Acute Care 02/24/22 04/23/22 Gurjit Delcid MD 9833 [place] [address] Referring Internal Medicine 03/10/22 Estefany Stern, PT 6801 [place] [address] Process Design Chemical Engineer Post Acute Care 03/11/22 Painter Tumbling Barrel Relationship Specialty Start Date End Date Katy Faust MD 174 [place], [place] [id number] PCP - General Internal Medicine 04/06/22 Caty Bowens MD 7677 [place] [address] Hematology/Oncology 05/29/21 Marisela Rome MD, [address] [place], [place] 63973691 Physician Radiation Oncology 05/30/21 Amelia Souza, RN Specialty Yarn Conditioner Oncology 06/04/21 Helen Roa [address] [phone] Cardiology 01/07/22 Ramiro Cheung MD 0530 [place] [address] Home Care Provider Colon and Rectal Surgery 02/13/22 Gurjit Delcid MD [address] [place] [phone] Referring Internal Medicine 03/10/22 Estefany Stern, PT [address] [place], [place] 0226531 Process Design Chemical Engineer Post Acute Care 03/11/22 Painter Tumbling Barrel Relationship Specialty Start Date End Date Katy Faust MD [address] [place], [place] [id number] PCP - General Internal Medicine 04/06/22 Caty Bowens MD 9802 [place] [address] Hematology/Oncology 05/29/21 Marisela Rome MD, [address] [place], [place] 40871691 Physician Radiation Oncology 05/30/21 Amelia Souza, RN Specialty Yarn Conditioner Oncology 06/04/21 Helen Roa [address] [address] Cardiology 01/07/22 Ramiro Cheung MD 2530 [facility] [place] [address] [address] Home Care Provider Colon and Rectal Surgery 02/13/22 Gurjit Delcid MD 9500 [place] [address] Referring Internal Medicine 03/10/22 Estefany Stern, PT [address] [place], [place] 8367631 Process Design Chemical Engineer Post Acute Care 03/11/22 Painter Tumbling Barrel Relationship Specialty Start Date End Date Katy Faust MD [address] [place], [place] [id number] PCP - General Internal Medicine 04/06/22 Caty Bowens MD 9500 [place] [address] Hematology/Oncology 05/29/21 Marisela Rome MD, [address] [place], [place] 00818691 Physician Radiation Oncology 05/30/21 Amelia Souza, RN Specialty Yarn Conditioner Oncology 06/04/21 Helen Roa [address] [address] Cardiology 01/07/22 Ramiro Cheung MD 9200 [facility] [place] [address] [address] Home Care Provider Colon and Rectal Surgery 02/13/22 Gurjit Delcid MD 4430 [place] [address] Referring Internal Medicine 03/10/22 Estefany Stern, PT [address] [place] [address] Process Design Chemical Engineer Post Acute Care 03/11/22 Painter Tumbling Barrel Relationship Specialty Start Date End Date Katy Faust MD 1740 [place] 158201 PCP - General Internal Medicine 04/06/22 Caty Bowens MD 0794 [place], [place] 3477695 Hematology/Oncology 05/29/21 Marisela Rome MD, [address] [place], [place] 52267691 Physician Radiation Oncology 05/30/21 Amelia Souza, RN Specialty Yarn Conditioner Oncology 06/04/21 Helen Roa [address] [address] Cardiology 01/07/22 Ramiro Cheung MD [address] [phone] Home Care Provider Colon and Rectal Surgery 02/13/22 Gurjit Delcid MD 3750 [place], [place] 9394995 Referring Internal Medicine 03/10/22 Estefany Stern, PT [address] [place] [address] Process Design Chemical Engineer Post Acute Care 03/11/22 Painter Tumbling Barrel Relationship Specialty Start Date End Date Katy Faust MD [address] [place], [place] [id number] PCP - General Internal Medicine 04/06/22 Caty Bowens MD 0891 [place] [address] Hematology/Oncology 05/29/21 Marisela Rome MD, [address] [place] [address] Physician Radiation Oncology 05/30/21 Amelia Souza, RN Specialty Yarn Conditioner Oncology 06/04/21 Helen Roa [address] [address] Cardiology 01/07/22 Ramiro Cheung MD [address] 6390495 Home Care Provider Colon and Rectal Surgery 02/13/22 Gurjit Delcid MD 0598 [place], [place] 8577795 Referring Internal Medicine 03/10/22 Estefany Stern, PT [address] [place], [place] 1169431 Process Design Chemical Engineer Post Acute Care 03/11/22 Painter Tumbling Barrel Relationship Specialty Start Date End Date Katy Faust MD [address] [place], [place] [id number] PCP - General Internal Medicine 04/06/22 Caty Bowens MD 3422 [place] [address] Hematology/Oncology 05/29/21 Marisela Rome MD, [address] [place] [address] Physician Radiation Oncology 05/30/21 Amelia Souza, RN Specialty Yarn Conditioner Oncology 06/04/21 Helen Roa [address] [address] Cardiology 01/07/22 Ramiro Cheung MD [address] [place] [address] Home Care Provider Colon and Rectal Surgery 02/13/22 Gurjit Delcid MD 7730 [place] [address] Referring Internal Medicine 03/10/22 Estefany Stern, PT [address] [place], [place] 7388931 Process Design Chemical Engineer Post Acute Care 03/11/22 Painter Tumbling Barrel Relationship Specialty Start Date End Date Katy Faust MD [address] [place], [place] [id number] PCP - General Internal Medicine 04/06/22 Caty Bowens MD 9500 [place] [address] Hematology/Oncology 05/29/21 Marisela Rome MD, [address] [place], [place] 25141691 Physician Radiation Oncology 05/30/21 Amelia Souza, RN Specialty Yarn Conditioner Oncology 06/04/21 Helen Roa [address] [address] Cardiology 01/07/22 Ramiro Cheung MD 9500 [facility] [address] [address] Home Care Provider Colon and Rectal Surgery 02/13/22 Gurjit Delcid MD 9080 [place] [address] Referring Internal Medicine 03/10/22 Estefany Stern, PT [address] [place], [place] 5768631 Process Design Chemical Engineer Post Acute Care 03/11/22 Painter Tumbling Barrel Relationship Specialty Start Date End Date Katy Faust MD [address] [place], [place] 353051 PCP - General Internal Medicine 04/06/22 Caty Bowens MD [address] [place] [phone] Hematology/Oncology 05/29/21 Marisela Rome MD, [address] [place], [place] 91591691 Physician Radiation Oncology 05/30/21 Amelia Souza, RN Specialty Yarn Conditioner Oncology 06/04/21 Helen Roa [address] [phone] Cardiology 01/07/22 Ramiro Cheung MD 9500 [place] [address] Home Care Provider Colon and Rectal Surgery 02/13/22 [place] [address] [place], [place] 0286395 Referring Internal Medicine 03/10/22 Estefany Stern, PT [address] [place] [address] Process Design Chemical Engineer Post Acute Care 03/11/22 Painter Tumbling Barrel Relationship Specialty Start Date End Date Katy Faust MD 174 [place] [address] PCP - General Internal Medicine 04/06/22 Caty Bowens MD 9500 [place] [address] Hematology/Oncology 05/29/21 Marisela Rome MD, [address] [place], [place] 36937691 Physician Radiation Oncology 05/30/21 Amelia Souza, DERRICK Specialty Yarn Conditioner Oncology 06/04/21 Helen Roa [address] [phone] Cardiology 01/07/22 Ramiro Cheung MD [address] [place] [phone] Home Care Provider Colon and Rectal Surgery 02/13/22 Gurjit Delcid MD 9500 [place], [place] 3240795 Referring Internal Medicine 03/10/22 Estefany Stern, PT [address] [place], [place] 0326331 Process Design Chemical Engineer Post Acute Care 03/11/22 Painter Tumbling Barrel Relationship Specialty Start Date End Date Katy Faust MD 1740 [place], [place] 682821 PCP - General Internal Medicine 04/06/22 Caty Bowens MD 9500 [place] [address] Hematology/Oncology 05/29/21 Marisela Rome MD, [address] [place], [place] 009491 Physician Radiation Oncology 05/30/21 Amelia Souza, RN Specialty Yarn Conditioner Oncology 06/04/21 Helen Roa [address] [phone] Cardiology 01/07/22 Ramiro Cheung MD [address] [phone] Home Care Provider Colon and Rectal Surgery 02/13/22 Gurjit Delcid MD 9500 [place], [place] 5501795 Referring Internal Medicine 03/10/22 Estefany Stern, PT [address] [place] [address] Process Design Chemical Engineer Post Acute Care 03/11/22 Painter Tumbling Barrel Relationship Specialty Start Date End Date Katy Faust MD [address] [place], [place] [id number] PCP - General Internal Medicine 04/06/22 Caty Bowens MD 9500 [place] [address] Hematology/Oncology 05/29/21 Marisela Rome MD, [address] [place], [place] 32919691 Physician Radiation Oncology 05/30/21 Amelia Souza, RN Specialty Yarn Conditioner Oncology 06/04/21 Helen Roa [address] [phone] Cardiology 01/07/22 Ramiro Cheung MD [address] 2236995 Home Care Provider Colon and Rectal Surgery 02/13/22 Gurjit Delcid MD [address] [place], [place] 5703795 Referring Internal Medicine 03/10/22 Estefany Stern, PT 68[address] [place], [place] 6987431 Process Design Chemical Engineer Post Acute Care 03/11/22 Painter Tumbling Barrel Relationship Specialty Start Date End Date Katy Faust MD [address] [place], [place] [id number] PCP - General Internal Medicine 04/06/22 Caty Bowens MD [address] [place] [phone] Hematology/Oncology 05/29/21 Marisela Rome MD, [address] [place], [place] 53469691 Physician Radiation Oncology 05/30/21 Amelia Souza RN Specialty Yarn Conditioner Oncology 06/04/21 Helen Roa [address] [phone] Cardiology 01/07/22 Ramiro Cheung MD [address] [address] Home Care Provider Colon and Rectal Surgery 02/13/22 Gurjit Delcid MD 9500 [place] [address] Referring Internal Medicine 03/10/22 AnujaLeniLeigh Estefany, PT [address] [place] [address] Process Design Chemical Engineer Post Acute Care 03/11/22 10/06/22 Painter Tumbling Barrel Relationship Specialty Start Date End Date Katy Faust MD [facility] [place], [place] 424551 PCP - General Internal Medicine 04/06/22 Caty Bowens MD [address] [place] [phone] Hematology/Oncology 05/29/21 Marisela Rome MD, [address] [place], [place] 95283691 Physician Radiation Oncology 05/30/21 Amelia Souza, DERRICK Specialty Yarn Conditioner Oncology 06/04/21 Helen Roa [address] [phone] Cardiology 01/07/22 [place] [address] [place] [address] Home Care Provider Colon and Rectal Surgery 02/13/22 Gurjit Delcid MD 9500 [place] [address] Referring Internal Medicine 03/10/22 Painter Tumbling Barrel Relationship Specialty Start Date End Date Katy Faust MD 1740 [place] [address] PCP - General Internal Medicine 04/06/22 Caty Bowens MD [address] [place] [address] Hematology/Oncology 05/29/21 Marisela Rome MD, [address] [place] [address] Physician Radiation Oncology 05/30/21 Amelia Souza, DERRICK Specialty Yarn Conditioner Oncology 06/04/21 Helen Roa [address] [phone] Cardiology 01/07/22 Ramiro Cheung MD [address] [address] Home Care Provider Colon and Rectal Surgery 02/13/22 Gurjit Delcid MD 9500 [place] [address] Referring Internal Medicine 03/10/22 Painter Tumbling Barrel Relationship Specialty Start Date End Date Katy Faust MD 1740 [place] [address] PCP - General Internal Medicine 04/06/22 Caty Bowens MD 9500 [place] [address] Hematology/Oncology 05/29/21 Marisela Rome MD, [address] [place] [address] Physician Radiation Oncology 05/30/21 Amelia Souza, RN Specialty Yarn Conditioner Oncology 06/04/21 Helen Roa [address] [phone] Cardiology 01/07/22 Ramiro Cheung MD [address] [place], [place] 9229895 Home Care Provider Colon and Rectal Surgery 02/13/22 Gurjit Delcid MD [address] [place], [place] 8949595 Referring Internal Medicine 03/10/22 Painter Tumbling Barrel Relationship Specialty Start Date End Date Katy Faust MD [address] [place], [place] [id number] PCP - General Internal Medicine 04/06/22 Caty Bowens MD [address] [place], [place] 6647295 Hematology/Oncology 05/29/21 Marisela Rome MD, [address] [place], [place] 72340691 Physician Radiation Oncology 05/30/21 Amelia Souza, DERRICK Specialty Yarn Conditioner Oncology 06/04/21 Helen Roa [address] [phone] Cardiology 01/07/22 Ramiro Cheung MD [address] [place], [place] [address]92[address] Home Care Provider Colon and Rectal Surgery 02/13/22 Gurjit Delcid MD [address] [place], [place] [id number] Referring Internal Medicine 03/10/22 Painter Tumbling Barrel Relationship Specialty Start Date End Date Katy Faust MD [address] [place] [address] [id number] PCP - General Internal Medicine 04/06/22 Caty Bowens MD [address] [place], [place] [phone] Hematology/Oncology 05/29/21 Marisela Rome MD, [address] [place], [place] [phone] Physician Radiation Oncology 05/30/21 Amelia Souza, RN Specialty Yarn Conditioner Oncology 06/04/21 Helen Roa [address] [phone] Cardiology 01/07/22 Ramiro Cheung MD [address] [place], [place] [address] Home Care Provider Colon and Rectal Surgery 02/13/22 Gurjit Delcid MD [address] [place] [address] Referring Internal Medicine 03/10/22 Painter Tumbling Barrel Relationship Specialty Start Date End Date Katy Faust MD [address]40 [place] [address] PCP - General Internal Medicine 04/06/22 Caty Bowens MD 9500 [place] [address] Hematology/Oncology 05/29/21 Marisela Rome MD, [address] [place] [address] Physician Radiation Oncology 05/30/21 Amelia Souza, DERRICK Specialty Yarn Conditioner Oncology 06/04/21 Helen Roa [address] [place] [phone] Cardiology 01/07/22 [place] [address] [place], [place] [phone] Home Care Provider Colon and Rectal Surgery 02/13/22 [place] [address] [place] [address] Referring Internal Medicine 03/10/22 Painter Tumbling Barrel Relationship Specialty Start Date End Date Katy Faust MD [address] [place] [address] PCP - General Internal Medicine 04/06/22 Caty Bowens MD [address]00 [place] [address] Hematology/Oncology 05/29/21 Marisela Rome MD, [address] [place] [address] Physician Radiation Oncology 05/30/21 Amelia Souza, RN Specialty Yarn Conditioner Oncology 06/04/21 Helen Roa [address] [phone] Cardiology 01/07/22 Ramiro Cheung MD [address] [address] Home Care Provider Colon and Rectal Surgery 02/13/22 Gurjit Delcid MD [address] [place], [place] [phone] Referring Internal Medicine 03/10/22 Painter Tumbling Barrel Relationship Specialty Start Date End Date Katy Faust MD [address] [place], [place] 918291 PCP - General Internal Medicine 04/06/22 Caty Bowens MD [address] [place] [address] Hematology/Oncology 05/29/21 Marisela Rome MD [address] [place] [address] Physician Radiation Oncology 05/30/21 Amelia Souza, DERRICK Specialty Yarn Conditioner Oncology 06/04/21 Helen Roa MD [address] [address] Cardiology 01/07/22 Ramiro Cheung MD [address] [place] [address] Home Care Provider Colon and Rectal Surgery 02/13/22 Gurjit Delcid MD 9500 [place] [address] Referring Internal Medicine 03/10/22 Painter Tumbling Barrel Relationship Specialty Start Date End Date Katy Faust MD [address] [place] [address] PCP - General Internal Medicine 04/06/22 Caty Bowens MD 9500 [place] [address] Hematology/Oncology 05/29/21 Marisela Rome MD [address] [place] [address] Physician Radiation Oncology 05/30/21 Amelia Souza, RN Specialty Yarn Conditioner Oncology 06/04/21 Helen Roa MD [address] 271181 Cardiology 01/07/22 Ramiro Cheung MD 9500 [place] [address] Home Care Provider Colon and Rectal Surgery 02/13/22 Gujrit Delcid MD [address] [place] [phone] Referring Internal Medicine 03/10/22 Painter Tumbling Barrel Relationship Specialty Start Date End Date Katy Faust MD [address] [place] [address] PCP - General Internal Medicine 04/06/22 Caty Bowens MD [address] [place] [address] Hematology/Oncology 05/29/21 Marisela Rome MD [address] [place], [place] 298601 Physician Radiation Oncology 05/30/21 Amelia Souza, DERRICK Specialty Yarn Conditioner Oncology 06/04/21 Helen Roa MD [address] [phone] Cardiology 01/07/22 [place] [address] [place], [place] [address] Home Care Provider Colon and Rectal Surgery 02/13/22 Gurjit Delcid MD [address]00 [place] [address] Referring Internal Medicine 03/10/22 Painter Tumbling Barrel Relationship Specialty Start Date End Date Katy Faust MD [address] [place] [address] PCP - General Internal Medicine 04/06/22 Caty Bowens MD [address]00 [place] [address] Hematology/Oncology 05/29/21 Marisela Rome MD [address] [place], [place] [phone] Physician Radiation Oncology 05/30/21 Amelia Souza, RN Specialty Yarn Conditioner Oncology 06/04/21 Helen Roa MD [address] 865081 Cardiology 01/07/22 Ramiro Cheung MD [address] [address] Home Care Provider Colon and Rectal Surgery 02/13/22 Gurjit Delcid MD [address] [place] [address] Referring Internal Medicine 03/10/22 Team Status: Inactive Member Role Status Dates Dr. Katy Faust MD Primary Care Provider, Referr ing Provider Active Carlos Trujillo OFFICE MACHINES WIRER, OFFICE MACHINES WIRER-C Attending Provider Active Team Status: Inactive Member [...] Dr. Carmen Rangel MD Emergency Provider Active Painter Tumbling Barrel Relationship Specialty Start Date End Date Katy Faust MD [address] [place], [place] 895421 PCP - General Internal Medicine 04/06/22 Caty Bowens MD [address]00 [place] [address] Hematology/Oncology 05/29/21 Marisela Rome MD [address] [place], [place] [phone] Physician Radiation Oncology 05/30/21 Amelia Souza RN Specialty Yarn Conditioner Oncology 06/04/21 Helen Roa MD [address] [facility] [address] 324671 Cardiology 01/07/22 Ramiro Cheung MD [address] [place] 909880 [place] [address] Home Care Provider Colon and Rectal Surgery 02/13/22 Gurjit Delcid MD [address]00 [place] [address] Referring Internal Medicine 03/10/22 Painter Tumbling Barrel Relationship Specialty Start Date End Date Katy Faust MD [address] [place], [place] [id number] PCP - General Internal Medicine 04/06/22 Caty Bowens MD [address] [place] [phone] Hematology/Oncology 05/29/21 Marisela Rome MD [address] [place], [place] 81929691 Physician Radiation Oncology 05/30/21 Amelia Souza, RN Specialty Yarn Conditioner Oncology 06/04/21 Helen Roa MD [address] [address] Cardiology 01/07/22 Ramiro Cheung MD [address] [place], [place] 3765995 Home Care Provider Colon and Rectal Surgery 02/13/22 Gurjit Delcid MD [address] [place] [address] Referring Internal Medicine 03/10/22 Team Status: Inactive Member Role Status Dates Dr. Katy Faust MD Primary Care Provider Active Dr. Carmen Rangel MD Attending Provider, Emergency Provider Active Painter Tumbling Barrel Relationship Specialty Start Date End Date Katy Faust [address] [place], [place] 833881 PCP - General Internal Medicine 07/14/23 Painter Tumbling Barrel Relationship Specialty Start Date End Date Katy Faust MD [address] [place], [place] 562421 PCP - General Internal Medicine 04/06/22 Caty Bowens MD [address] [place], [place] 5684995 Hematology/Oncology 05/29/21 Marisela Rome MD [address] [place] [address] Physician Radiation Oncology 05/30/21 Amelia Souza, DERRICK Specialty Yarn Conditioner Oncology 06/04/21 Helen Roa MD [address] 619551 Cardiology 01/07/22 [place] [address] [place] [address] Home Care Provider Colon and Rectal Surgery 02/13/22 [place] [address] [place], [place] 0286395 Referring Internal Medicine 03/10/22 Sabrina Muñiz [address] [place] [address] 115 [place] [address] Colon and Rectal Surgery 07/19/23 Painter Tumbling Barrel Relationship Specialty Start Date End Date Katy Faust MD [address] [place], [place] 286521 PCP - General Internal Medicine 04/06/22 Caty Bowens MD [address] [place] [address] Hematology/Oncology 05/29/21 Marisela Rome MD [address] [place] [address] Physician Radiation Oncology 05/30/21 Amelia Souza RN Specialty Yarn Conditioner Oncology 06/04/21 Helen Roa MD [address] 383221 Cardiology 01/07/22 Ramiro Cheung MD [address] [place] [phone] Home Care Provider Colon and Rectal Surgery 02/13/22 Gurjit Delcid MD [address] [place] [address] Referring Internal Medicine 03/10/22 Sabrina Muñiz [address] [facility] [address] [place] [address] Colon and Rectal Surgery 07/19/23 Painter Tumbling Barrel Relationship Specialty Start Date End Date Katy Faust MD [address] [place], [place] 667411 PCP - General Internal Medicine 04/06/22 Caty Bowens MD [address] [place] [address] Hematology/Oncology 05/29/21 Marisela Rome MD [address] [place], [place] 85354691 Physician Radiation Oncology 05/30/21 Amelia Souza, RN Specialty Yarn Conditioner Oncology 06/04/21 Helen Roa MD [address] [address] Cardiology 01/07/22 Ramiro Cheung MD [address] [place], [place] 2516595 Home Care Provider Colon and Rectal Surgery 02/13/22 Gurjit Delcid MD [address] [place], [place] 9961995 Referring Internal Medicine 03/10/22 Sabrina Muñiz [address] [facility] [address] [place] [address] Colon and Rectal Surgery 07/19/23 Painter Tumbling Barrel Relationship Specialty Start Date End Date Katy Faust MD [address] [place] 013431 PCP - General Internal Medicine 04/06/22 Caty Bowens MD [address] [place] [phone] Hematology/Oncology 05/29/21 Marisela Rome MD [address] [place], [place] 39059691 Physician Radiation Oncology 05/30/21 Amelia Souza RN Specialty Yarn Conditioner Oncology 06/04/21 Helen Roa MD [address] [phone] Cardiology 01/07/22 Ramiro Cheung MD [address] [address] Home Care Provider Colon and Rectal Surgery 02/13/22 Gurjit Delcid MD [address] [place] [phone] Referring Internal Medicine 03/10/22 Sabrina Muñiz [address] [place] [address] Colon and Rectal Surgery 07/19/23 Painter Tumbling Barrel Relationship Specialty Start Date End Date Katy Faust MD [address] [place] [address] PCP - General Internal Medicine 04/06/22 Caty Bowens MD [address]00 [place] [address] Hematology/Oncology 05/29/21 Marisela Rome MD [address] [place], [place] 87422691 Physician Radiation Oncology 05/30/21 Amelia Souza RN Specialty Yarn Conditioner Oncology 06/04/21 Helen Roa MD [address] [phone] Cardiology 01/07/22 Ramiro Cheung MD [address] [address] Home Care Provider Colon and Rectal Surgery 02/13/22 Gurjit Delcid MD [address] [place] [phone] Referring Internal Medicine 03/10/22 Sabrina Muñiz [address] [place] [address] Colon and Rectal Surgery 07/19/23 Painter Tumbling Barrel Relationship Specialty Start Date End Date Katy Faust MD [facility] [place], [place] 814061 PCP - General Internal Medicine 04/06/22 Caty Bowens MD [address] [place], [place] [phone] Hematology/Oncology 05/29/21 Marisela Rome MD [address] [place], [place] 89183691 Physician Radiation Oncology 05/30/21 Amelia Souza, RN Specialty Yarn Conditioner Oncology 06/04/21 Helen Roa MD [address] [address] Cardiology 01/07/22 Ramiro Cheung MD [address] [phone] Home Care Provider Colon and Rectal Surgery 02/13/22 Gurjit Delcid MD [address] [place] [phone] Referring Internal Medicine 03/10/22 Sabrina Muñiz [address] [place] [address] [phone] Colon and Rectal Surgery 07/19/23 Painter Tumbling Barrel Relationship Specialty Start Date End Date Katy Faust MD [address] [place], [place] [phone] PCP - General Internal Medicine 04/06/22 Caty Bowens MD [address] [place], [place] [phone] Hematology/Oncology 05/29/21 Marisela Rome MD [address] [place], [place] 78126691 Physician Radiation Oncology 05/30/21 Amelia Souza, RN Specialty Yarn Conditioner Oncology 06/04/21 Helen Roa MD [address] [phone] Cardiology 01/07/22 Ramiro Cheung MD [address] [place], [place] 2468795 Home Care Provider Colon and Rectal Surgery 02/13/22 Gurjit Delcid MD [address] [place], [place] 4319195 Referring Internal Medicine 03/10/22 Sabrina Muñiz [address] [place] [address] 115 [place], [place] [phone] Colon and Rectal Surgery 07/19/23 Painter Tumbling Barrel Relationship Specialty Start Date End Date Katy Faust MD [address] [place], [place] [phone] PCP - General Internal Medicine 04/06/22 Caty Bowens MD [address] [place], [place] 6170995 Hematology/Oncology 05/29/21 Marisela Rome MD [address] [place], [place] 69658691 Physician Radiation Oncology 05/30/21 Amelia Souza RN Specialty Yarn Conditioner Oncology 06/04/21 Helen Roa MD [address] [phone] Cardiology 01/07/22 Ramiro Cheung MD [address] [place] [address] Home Care Provider Colon and Rectal Surgery 02/13/22 Gurjit Delcid MD 9500 [place] [address] Referring Internal Medicine 03/10/22 Sabrina Muñiz [address] [place] [address] [address] [place], [place] [phone] Colon and Rectal Surgery 07/19/23 Painter Tumbling Barrel Relationship Specialty Start Date End Date Katy Faust MD [address] [place], [place] 172931 PCP - General Internal Medicine 04/06/22 Caty Bowens MD [address] [place], [place] 3158195 Hematology/Oncology 05/29/21 Marisela Rome MD [address] [place], [place] 309521 Physician Radiation Oncology 05/30/21 Amelia Souza, DERRICK Specialty Yarn Conditioner Oncology 06/04/21 Helen Roa MD [address] 644711 Cardiology 01/07/22 Ramiro Cheung MD [address] [address] Home Care Provider Colon and Rectal Surgery 02/13/22 Gurjit Delcid MD [address]00 [place] [address] Referring Internal Medicine 03/10/22 Sabrina Muñiz [address] [place] [address] Street [address] [place], [place] [phone] Colon and Rectal Surgery 07/19/23 Painter Tumbling Barrel Relationship Specialty Start Date End Date Katy Faust MD [address] [place] 881001 PCP - General Internal Medicine 04/06/22 Caty Bowens MD [address] [place] [phone] Hematology/Oncology 05/29/21 Marisela Rome MD [address] [place], [place] [phone] Physician Radiation Oncology 05/30/21 Amelia Souza, DERRICK Specialty Yarn Conditioner Oncology 06/04/21 Helen Roa MD [address] [phone] Cardiology 01/07/22 Ramiro Cheung MD 9500 [place] [address] Home Care Provider Colon and Rectal Surgery 02/13/22 Gurjit Delcid MD [address] [place] [phone] Referring Internal Medicine 03/10/22 Sabrina Muñiz [address] [place] [address] 115 [place] [address] Colon and Rectal Surgery 07/19/23 Painter Tumbling Barrel Relationship Specialty Start Date End Date Katy Faust MD [address] [place], [place] [id number] PCP - General Internal Medicine 04/06/22 Caty Bowens MD [address] [place] [phone] Hematology/Oncology 05/29/21 Marisela Rome MD [address] [place], [place] [phone] Physician Radiation Oncology 05/30/21 Amelia Souza RN Specialty Yarn Conditioner Oncology 06/04/21 Helen Roa MD [address] [phone] Cardiology 01/07/22 Ramiro Cheung MD [address] [address] Home Care Provider Colon and Rectal Surgery 02/13/22 Gurjit Delcid MD 9500 [place] [address] Referring Internal Medicine 03/10/22 Sabrina Muñiz [address] [place] [address] [phone] Colon and Rectal Surgery 07/19/23 Painter Tumbling Barrel Relationship Specialty Start Date End Date Katy Faust MD [address] [place], [place] [id number] PCP - General Internal Medicine 04/06/22 Caty Bowens MD [address]00 [place] [address] Hematology/Oncology 05/29/21 Marisela Rome MD [address] [place] [address] Physician Radiation Oncology 05/30/21 Amelia Souza RN Specialty Yarn Conditioner Oncology 06/04/21 Helen Roa MD [address] [address] Cardiology 01/07/22 Ramiro Cheung MD [address]00 [facility] [address] [place] [address] Home Care Provider Colon and Rectal Surgery 02/13/22 Gurjit Delcid MD 9500 [place] [address] Referring Internal Medicine 03/10/22 Sabrina Muñiz [address] [place] [address] Colon and Rectal Surgery 07/19/23 Painter Tumbling Barrel Relationship Specialty Start Date End Date Katy Faust MD [address] [place], [place] 497501 PCP - General Internal Medicine 04/06/22 Caty Bowens MD 9500 [place] [address] Hematology/Oncology 05/29/21 Marisela Rome MD [address] [place] [address] Physician Radiation Oncology 05/30/21 Amelia Souza, DERRICK Specialty Yarn Conditioner Oncology 06/04/21 Helen Roa MD [address] [address] Cardiology 01/07/22 Ramiro Cheung MD [address] [facility] [place] 8307795 Home Care Provider Colon and Rectal Surgery 02/13/22 Gurjit Delcid MD [address] [place] [phone] Referring Internal Medicine 03/10/22 Sabrina Muñiz [address] [place] [address] [phone] Colon and Rectal Surgery 07/19/23 Painter Tumbling Barrel Relationship Specialty Start Date End Date Katy Faust MD [facility] [place] [address] PCP - General Internal Medicine 04/06/22 [place] [address] [place] [address] Hematology/Oncology 05/29/21 Marisela Rome MD [address] [place] [address] Physician Radiation Oncology 05/30/21 Amelia Souza, DERRICK Specialty Yarn Conditioner Oncology 06/04/21 Helen Roa MD [address] 992541 Cardiology 01/07/22 Ramiro Cheung MD [address] [facility] [place] 8307795 Home Care Provider Colon and Rectal Surgery 02/13/22 Gurjit Delcid MD [address] [place] [phone] Referring Internal Medicine 03/10/22 Sabrina Muñiz [address] [place] [address] [address] [place], [place] [phone] Colon and Rectal Surgery 07/19/23 Painter Tumbling Barrel Relationship Specialty Start Date End Date Katy Faust MD [address] [place], [place] [id number] PCP - General Internal Medicine 04/06/22 Caty Bowens MD 7871 [place] [address] Hematology/Oncology 05/29/21 Marisela Rome MD [address] [place], [place] 84563691 Physician Radiation Oncology 05/30/21 Amelia Souza, RN Specialty Yarn Conditioner Oncology 06/04/21 Helen Roa MD [address] [phone] Cardiology 01/07/22 Ramiro Cheung MD [address] [place] [phone] Home Care Provider Colon and Rectal Surgery 02/13/22 Gurjit Delcid MD 2075 [place] [address] Referring Internal Medicine 03/10/22 Sabrina uMñiz [address] [facility] [address] [place] [address] Colon and Rectal Surgery 07/19/23 Painter Tumbling Barrel Relationship Specialty Start Date End Date Katy Faust MD [address]40 [place] [address] PCP - General Internal Medicine 04/06/22 Caty Bowens MD [address] [place], [place] 4858295 Hematology/Oncology 05/29/21 Marisela Rome MD [address] [place] [address] Physician Radiation Oncology 05/30/21 Amelia Souza, DERRICK Specialty Yarn Conditioner Oncology 06/04/21 Helen Roa MD [address] [place], [place] 020161 Cardiology 01/07/22 Ramiro Cheung MD [address] [place], [place] 2906495 Home Care Provider Colon and Rectal Surgery 02/13/22 Gurjit Delcid MD [address] [place], [place] 0542795 Referring Internal Medicine 03/10/22 Sabrina Muñiz [address] [facility] [address] [place] [address] Colon and Rectal Surgery 07/19/23 Painter Tumbling Barrel Relationship Specialty Start Date End Date Katy Faust MD [address] [place], [place] 523971 PCP - General Internal Medicine 04/06/22 [place] [address] [place] [address] Hematology/Oncology 05/29/21 Marisela Rome MD [address] [place], [place] [phone] Physician Radiation Oncology 05/30/21 Amelia Souza, DERRICK Specialty Yarn Conditioner Oncology 06/04/21 Helen Roa MD [address] [phone] Cardiology 01/07/22 Ramiro Cheung MD [address] [place] [address] Home Care Provider Colon and Rectal Surgery 02/13/22 Gurjit Delcid MD [address] [place] [address] Referring Internal Medicine 03/10/22 Sabrina Muñiz [address] [place] [address] [phone] Colon and Rectal Surgery 07/19/23 Painter Tumbling Barrel Relationship Specialty Start Date End Date Katy Faust MD [facility] [place], [place] [phone] PCP - General Internal Medicine 04/06/22 [place] [address] [place] [address] Hematology/Oncology 05/29/21 Marisela Rome MD [address] [place], [place] [phone] Physician Radiation Oncology 05/30/21 Amelia Souza, RN Specialty Yarn Conditioner Oncology 06/04/21 Helen Roa MD [address] [phone] Cardiology 01/07/22 [place] [address] [place] [address] Home Care Provider Colon and Rectal Surgery 02/13/22 Gurjit Delcid MD [address] [place], [place] [phone] Referring Internal Medicine 03/10/22 Sabrina Muñiz [address] [place] [address] 115 [place], [place] [phone] Colon and Rectal Surgery 07/19/23 Srinivasan Da Silva, ACADEMIC AFFAIRS MANAGER.TECHNICIAN SUPPORT ENGINEER [address] [place] [address] Butcher Supervisor Internal Medicine 02/07/24 Norm Parker, ACADEMIC AFFAIRS MANAGER.FURNITURE INSPECTOR 1740 [place], [place] [phone] Butcher Supervisor Internal Medicine 02/07/24 Painter Tumbling Barrel Relationship Specialty Start Date End Date Katy Faust MD [address]40 [place] [address] PCP - General Internal Medicine 04/06/22 Caty Bowens MD 9500 [place] [address] Hematology/Oncology 05/29/21 Marisela Rome MD [address] [place], [place] 549561 Physician Radiation Oncology 05/30/21 Amelia Souza, DERRICK Specialty Yarn Conditioner Oncology 06/04/21 Helen Roa MD [address] [phone] Cardiology 01/07/22 Ramiro Cheung MD [address] 5110095 Home Care Provider Colon and Rectal Surgery 02/13/22 Gurjit Delcid MD [address] [place] [address] [phone] Referring Internal Medicine 03/10/22 Sabrina Muñiz [address] [place] [address] Colon and Rectal Surgery 07/19/23 Srinivasan Da Silva, ACADEMIC AFFAIRS MANAGER.TECHNICIAN SUPPORT ENGINEER [address] [place] [address] 965541 Butcher Supervisor Internal Medicine 02/07/24 Norm Parker, ACADEMIC AFFAIRS MANAGER.FURNITURE INSPECTOR [address] [place] [address] [id number] Butcher Supervisor Internal Medicine 02/07/24 Painter Tumbling Barrel Relationship Specialty Start Date End Date Katy Faust MD [address] [place] [address] 237841 PCP - General Internal Medicine 04/06/22 Caty Bowens MD 9500 [place], [place] [phone] Hematology/Oncology 05/29/21 Marisela Rome MD [address] [place], [place] [phone] Physician Radiation Oncology 05/30/21 Amelia Souza, DERRICK Specialty Yarn Conditioner Oncology 06/04/21 Helen Roa MD [address] [id number] Cardiology 01/07/22 Ramiro Cheung MD [address] [place] [address] Home Care Provider Colon and Rectal Surgery 02/13/22 Gurjit Delcid MD 9500 [place] [address] Referring Internal Medicine 03/10/22 Sabrina Muñiz [address] [place] [address] [phone] Colon and Rectal Surgery 07/19/23 Srinivasan Da Silva, NAVNEET.TECHNICIAN SUPPORT ENGINEER [address] [place], [place] [phone] Butcher Supervisor Internal Medicine 02/07/24 Norm Parker ACADEMIC AFFAIRS MANAGER.FURNITURE INSPECTOR [address] [place], [place] [phone] Butcher Supervisor Internal Medicine 02/07/24 Painter Tumbling Barrel Relationship Specialty Start Date End Date Katy Faust MD [address] [place], [place] 262741 PCP - General Internal Medicine 04/06/22 Caty Bowens MD [address] [place] [phone] Hematology/Oncology 05/29/21 Marisela Rome MD [address] [place], [place] 15639691 Physician Radiation Oncology 05/30/21 Amelia Souza RN Specialty Yarn Conditioner Oncology 06/04/21 Helen Roa MD [address] [phone] Cardiology 01/07/22 Ramiro Cheung MD [address] [place] [phone] Home Care Provider Colon and Rectal Surgery 02/13/22 Gurjit Delcid MD 9500 [place] [address] Referring Internal Medicine 03/10/22 Sabrina Muñiz [address] [place] [address] Colon and Rectal Surgery 07/19/23 Srinivasan Da Silva APRN.TECHNICIAN SUPPORT ENGINEER [address] [place] [address] Butcher Supervisor Internal Medicine 02/07/24 Norm aPrker APRN.FURNITURE INSPECTOR [address] [place] [address] Butcher Supervisor Internal Medicine 05/23/24 Painter Tumbling Barrel Relationship Specialty Start Date End Date Katy Faust MD [address] [place] [address] PCP - General Internal Medicine 04/06/22 Caty Bowens MD [address] [place] [phone] Hematology/Oncology 05/29/21 Marisela Rome MD [address] [place], [place] 625511 Physician Radiation Oncology 05/30/21 Amelia Souza RN Specialty Yarn Conditioner Oncology 06/04/21 Helen Roa MD [address] [address] Cardiology 01/07/22 Ramiro Cheung MD [address] [place] [address] Home Care Provider Colon and Rectal Surgery 02/13/22 Gurjit Delcid MD [address] [place] [address] Referring Internal Medicine 03/10/22 Sabrina Muñiz [address] [place] [address] [address] [place] [address] Colon and Rectal Surgery 07/19/23 Srinivasan Da Silva APRN.TECHNICIAN SUPPORT ENGINEER [address] [place], [place] [id number] Butcher Supervisor Internal Medicine 02/07/24 Norm Parker APRN.FURNITURE INSPECTOR [address] [place] [address] Butcher Supervisor Internal Medicine 05/23/24 Painter Tumbling Barrel Relationship Specialty Start Date End Date Katy Faust MD [address] [place] [address] PCP - General Internal Medicine 04/06/22 Caty Bowens MD [address] [place] [id number] Hematology/Oncology 05/29/21 Marisela Rome MD [address] [place] [address] Physician Radiation Oncology 05/30/21 Amelia Souza, RN Specialty Yarn Conditioner Oncology 06/04/21 Helen Rao MD [address] [id number] Cardiology 01/07/22 Ramiro Cheung MD [address] [address] Home Care Provider Colon and Rectal Surgery 02/13/22 Gurjit Delcid MD [address] [place] [address] Referring Internal Medicine 03/10/22 Sabrina Muñiz [address] [place] [address] [address] [place] [address] Colon and Rectal Surgery 07/19/23 Srinivasan Da Silva APRN.TECHNICIAN SUPPORT ENGINEER [address] [place] [address] Butcher Supervisor Internal Medicine 02/07/24 Norm Parker APRN.FURNITURE INSPECTOR [address] [place] [address] Butcher Supervisor Internal Medicine 05/23/24 Painter Tumbling Barrel Relationship Specialty Start Date End Date Katy Faust MD [address] [place], [place] [id number] PCP - General Internal Medicine 04/06/22 Caty Bowens MD [address] [place] [address] Hematology/Oncology 05/29/21 Marisela Rome MD [address] [place], [place] 109131 Physician Radiation Oncology 05/30/21 Amelia Souza, DERRICK Specialty Yarn Conditioner Oncology 06/04/21 Helen Roa MD [address] [id number] Cardiology 01/07/22 Ramiro Cheung MD [address] [facility] [address] [place] [address] Home Care Provider Colon and Rectal Surgery 02/13/22 Gurjit Delcid MD [address] [place] [address] Referring Internal Medicine 03/10/22 Sabrina Muñiz [address] [place] [address] Colon and Rectal Surgery 07/19/23 Srinivasan Da Silva, ACADEMIC AFFAIRS MANAGER.TECHNICIAN SUPPORT ENGINEER [address] [place] [address] Butcher Supervisor Internal Medicine 02/07/24 Norm Parker ACADEMIC AFFAIRS MANAGER.FURNITURE INSPECTOR [address] [place], [place] [id number] Butcher Supervisor Internal Medicine 05/23/24 Painter Tumbling Barrel Relationship Specialty Start Date End Date Katy Faust MD [address] [place], [place] 152131 PCP - General Internal Medicine 04/06/22 Caty Bowens MD [address] [place] [place] [id number] Hematology/Oncology 05/29/21 Marisela Rome MD [address] [place], [place] [phone] Physician Radiation Oncology 05/30/21 Amelia Souza, RN Specialty Yarn Conditioner Oncology 06/04/21 Helen Roa MD [address] [id number] Cardiology 01/07/22 Ramiro Cheung MD [address] [address] Home Care Provider Colon and Rectal Surgery 02/13/22 Gurjit Delcid MD [address] [place] [address] Referring Internal Medicine 03/10/22 Sabrina Muñiz [address] [facility] [address] [place] [address] Colon and Rectal Surgery 07/19/23 Srinivasan Da Silva APRN.TECHNICIAN SUPPORT ENGINEER [address] [place], [place] [address] Butcher Supervisor Internal Medicine 02/07/24 Norm Parker ACADEMIC AFFAIRS MANAGER.FURNITURE INSPECTOR [address] [place], [place] [id number] Butcher Supervisor Internal Medicine 05/23/24 Painter Tumbling Barrel Relationship Specialty Start Date End Date Katy Faust MD [address] [place], [place] [id number] PCP - General Internal Medicine 04/06/22 Caty Bowens MD [address] [place], [place] [id number] Hematology/Oncology 05/29/21 Marisela Rome MD [address] [place], [place] [phone] Physician Radiation Oncology 05/30/21 Amelia Souza, DERRICK Specialty Yarn Conditioner Oncology 06/04/21 Helen Roa MD [address] [place] [address] [phone] Cardiology 01/07/22 Ramiro Cheung MD [address] [place] [address] Home Care Provider Colon and Rectal Surgery 02/13/22 [place] [address] [place] [address] [id number] Referring Internal Medicine 03/10/22 Sabrina Muñiz [address] [place] [address] [address] [place] [address] Colon and Rectal Surgery 07/19/23 Norm Parker, ACADEMIC AFFAIRS MANAGER.FURNITURE INSPECTOR [address] [place] [address] Butcher Supervisor Internal Medicine 05/23/24 Srinivasan Da Silva, ACADEMIC AFFAIRS MANAGER.TECHNICIAN SUPPORT ENGINEER [address] [place] [address] Butcher Supervisor Internal Medicine 07/19/24 Team Status: Active Member [...] Provider Active S tart: August 01, 2024 Painter Tumbling Barrel Relationship Specialty Start Date End Date Katy Faust MD [address] [place], [place] [id number] PCP - General Internal Medicine 04/06/22 Caty Bowens MD [address] [place] [address] Hematology/Oncology 05/29/21 Marisela Rome MD [address] [place], [place] [id number] Physician Radiation Oncology 05/30/21 Amelia Souza RN Specialty Yarn Conditioner Oncology 06/04/21 Helen Roa MD [address] [phone] Cardiology 01/07/22 Ramiro Cheung MD [address] [place] [address] Home Care Provider Colon and Rectal Surgery 02/13/22 Gurjit Delcid MD [address] [place] [address] Referring Internal Medicine 03/10/22 Sabrina Muñiz [address] [place] [address] [address] [place], [place] [id number] Colon and Rectal Surgery 07/19/23 Norm Parker, ACADEMIC AFFAIRS MANAGER.FURNITURE INSPECTOR [address] [place], [place] [phone] Butcher Supervisor Internal Medicine 05/23/24 Srinivasan Da Silva APRN.TECHNICIAN SUPPORT ENGINEER [address] [place], [place] [phone] Butcher Supervisor Internal Medicine 07/19/24 Painter Tumbling Barrel Relationship Specialty Start Date End Date Katy Faust MD [address] [place], [place] [id number] PCP - General Internal Medicine 04/06/22 Caty Bowens MD [address] [place] [address] Hematology/Oncology 05/29/21 Marisela Rome MD [address] [place], [place] 335051 Physician Radiation Oncology 05/30/21 Amelia Souza, DERRICK Specialty Yarn Conditioner Oncology 06/04/21 Helen Roa MD [address] [id number] Cardiology 01/07/22 Ramiro Cheung MD [address] [facility] [address] [place] [address] Home Care Provider Colon and Rectal Surgery 02/13/22 Gurjit Delcid MD [address] [place] [address] Referring Internal Medicine 03/10/22 Sabrina Muñiz [address] [place] [address] [address] [place] [address] Colon and Rectal Surgery 07/19/23 Norm Parker, ACADEMIC AFFAIRS MANAGER.FURNITURE INSPECTOR [address] [place] [address] Butcher Supervisor Internal Medicine 05/23/24 Srinivasan Da Silva, ACADEMIC AFFAIRS MANAGER.TECHNICIAN SUPPORT ENGINEER [address] [place] [address] Butcher Supervisor Internal Medicine 07/19/24 Team Status: Active Member [...] October 10, 2024 End: October 10, 2024 Painter Tumbling Barrel Relationship Specialty Start Date End Date Katy Faust MD [address] [place] [address] PCP - General Internal Medicine 04/06/22 Caty Bowens MD [address] [place], [place] [phone] Hematology/Oncology 05/29/21 Marisela Rome MD [address] [place], [place] 857461 Physician Radiation Oncology 05/30/21 Amelia Souza RN Specialty Yarn Conditioner Oncology 06/04/21 Helen Roa MD [address] [phone] Cardiology 01/07/22 Ramiro Cheung MD [address] [address] Home Care Provider Colon and Rectal Surgery 02/13/22 Sabrina Muñiz [address] [place] [address] Colon and Rectal Surgery 07/19/23 Norm Parker, NAVNEET.FURNITURE INSPECTOR [address] [place] [address] Butcher Supervisor Internal Medicine 05/23/24 Srinivasan Da Silva, NAVNEET.TECHNICIAN SUPPORT ENGINEER [address] [place] [address] Butcher Supervisor Internal Medicine 07/19/24 Painter Tumbling Barrel Relationship Specialty Start Date End Date Katy Faust MD [address] [place], [place] [address] PCP - General Internal Medicine 04/06/22 Caty Bowens MD [address] [place] [address] Hematology/Oncology 05/29/21 Marisela Rome MD [address] [place], [place] 275[address]31 Physician Radiation Oncology 05/30/21 Amelia Souza, RN Specialty Yarn Conditioner Oncology 06/04/21 Helen Roa MD [address] [address] Cardiology 01/07/22 Ramiro Cheung MD [address] [place] [phone] Home Care Provider Colon and Rectal Surgery 02/13/22 Gurjit Delcid MD [address] [place] [phone] Referring Internal Medicine 03/10/22 08/23/24 Sabrina Muñiz [address] [place] [address] [address] [place] [address] Colon and Rectal Surgery 07/19/23 Norm Parker, ACADEMIC AFFAIRS MANAGER.FURNITURE INSPECTOR [address] [place], [place] [address] Butcher Supervisor Internal Medicine 05/23/24 Srinivasan Da iSlva, ACADEMIC AFFAIRS MANAGER.TECHNICIAN SUPPORT ENGINEER [address] [place], [place] [phone] Butcher Supervisor Internal Medicine 07/19/24 Team Status: Active Member [...] 2024 End: November 29, 2024 Dr. Katy Faust MD Referring Provider Active Start: November 29, 2024 End: November 29, 2024 Carlos Trujillo OFFICE MACHINES WIRER, OFFICE MACHINES WIRER-C Attending physician Active Start: November 29, 2024 [...] BE BASED ON THE PRIMARY CLINICAL RECORDS. [facility]. provides no warranty or guarantee of the accuracy or completeness of information in this document.
[2025-01-07] MEDS: Lidocaine 1% (5 ml sdv) 5 ML Vial 3 ML IV (15:19)
[2025-01-07] MEDS: Midazolam 2 MG/2 ML Syringe IV (15:29)
[2025-01-07] MEDS: Cefazolin 1 GM/5 ML Vial 2 GM IV (16:24)
[2025-01-07] MEDS: fentaNYL 100 MCG/2 ML Ampul IV (16:32)
--- NOTE | 2025-01-07 16:39 | OP.PCM_ITS ---
Procedures Musculoskeletal 20xxx-29xxx: Other Procedure See Report Operative Report (Standard) Operative Information Date of Procedure: 01/07/25 Pre-Operative Diagnosis: Posterior lumbar wound hematoma s/p laminectomy, cauda equina compression Post-Operative Diagnosis: Same Surgery/Procedure Performed: Posterior lumbar wound I&D, hematoma evacuation melangeur operator: Yes Transportation Maintenance Supervisor: Zaira De Jesus Tasks completed by commercial escrow assistant: Closing, Removing tissue, Hemostasis: Electrocautery and Retracting Type of Anesthesia: General RN Documented Start/Stop Times: Operation Date: 01/07/25 15:00 Case Time Anesthesia Start 01/07/25 15:07 Into Room 01/07/25 15:07 Procedure Start 01/07/25 15:39 Procedure Start Time: 15:39 Procedure Stop Time: 14:45 Select all DRAINS/GRAFTS/IMPLANTS that apply: Drains Drain details: Hemovac Estimated Blood Loss: 30 cc Specimen collected: Yes Description of specimen(s) removed: Wound swabs, deep lumbar Description of surgery: Preoperative diagnosis: Posterior lumbar wound hematoma s/p laminectomy, cauda equina compression Postoperative diagnosis: Same Name of procedure: Posterior lumbar wound I&D, hematoma evacuation CPT 67369 Attending Surgeon: Dr. Howard Siddiqui Estimated blood loss: 30 mL Anesthesia: General Indications: Patient is a 74-year-old gentleman who presented with low back pain and bilateral lower extremity radiation and urinary retention 5 days after L3-5 laminectomy. MRI revealed postsurgical changes of L3-5 laminectomy with large deep hematoma causing cauda equina compression. Due to the significant worsening of axial and radicular pain and urinary retention and concern for cauda equina compression, I recommended emergent surgical intervention for I&D and hematoma evacuation. All risks and benefits associated with the procedure were explained to the patient. The risks include but are not limited to infection, bleeding, injury to nerves and vessels, persistent paresthesia, incidental dural tear, need for further procedures in future, persistent pain, persistent weakness and numbness, etc. Procedure: The patient was identified in the preoperative holding suite using Unique patient identifiers. Skin was marked, consent was reviewed, and all questions were answered. The patient was then brought back to the operative room. A surgical timeout was performed to make sure correct procedure was being done on the correct patient and all operative room staff were on the same page. General endotracheal anesthesia was then given to the patient. The patient was then turned prone onto the OR table over a Kwesi frame. Rossy were removed. The back was prepped and draped in usual fashion. Preoperative antibiotic was held for cultures. A final timeout was then again done just before starting the procedure. Incision was then opened with help of knife and removing previous suture material. Minimal collection was noticed in the subcutaneous tissue. Deep fascia was then opened by removing previous sutures. Serosanguineous collection was then evacuated. No obvious purulence was seen. Wound swabs were taken through multiple locations and the deep tissues. Dura was identified. This was felt to be well decompressed. No CSF leak was seen. Valsalva maneuver up to 40 mmHg was then performed to confirm that there is no CSF leaks. Curette was utilized to remove unhealthy granulation tissue. hemostasis was achieved. Thorough irrigation was given with 3 L of normal saline through an septal tube. Irrisept was kept in the wound for 1 minute and then was rinsed with normal saline. Hemovac drain was placed in the deep space. Hemovac was sutured to the skin at his exit point which was to the right of the superior end of the incision. closure was done in layers, 0 PDS for the muscle layer and deep fascia, Stratafix at the deep fascia for tension, 2-0 PDS for subcutaneous tissue, and 3-0 nylon for the skin. gauze was then placed over the wound covered with Tegaderm. The patient was then turned supine onto a hospital bed. The patient was extubated and taken to PACU in stable condition. The patient tolerated the procedure well and no complications occurred. Estimated blood loss for the entire surgery was 30 mL. No instrumentation was utilized in this case. No dural tear occurred in this case. I was present for the entirety of the case and performed the surgery myself. Counterintelligence Agent Zaira De Jesus PA-C. My physician certified registered dental assistant was a vital part of this case. They were important in appropriate retraction during the case, and protection of soft tissues during the procedure. Their intimate knowledge of the case and my steps aided in safe and expedient completion of the procedure as well as appropriate position of the patient during the surgery. They were also vital in assisting with closure under my direct supervision. Surgical Findings: See operative note Complications Complications: No
--- NOTE | 2025-01-07 17:05 | PCM.POST.ANE ---
Anesthesia: Postop Eval I Current Vital Signs Temperature: 97.4 F Pulse Rate: 87 Blood Pressure: 118/87 Respiratory Rate: 16 Pulse Ox: 95 Oxygen Delivery Method: Room Air Assessment Airway patent: Yes Spontaneous unlabored respirations: Yes Mental status: Asleep nausea: No Vomiting: No Anesthesia Complication: No Fluid Hydration Crystalloid volume administer (ml): 750 Total IV fluid infused: 750 Progress Note Anesthesia document: Postop Eval 1 completed: Yes
--- NOTE | 2025-01-07 17:19 | PCM.POSTANE2 ---
Anesthesia Postop Eval I Sum Postop Eval Completion status Anesthesia document: Postop Eval 1 completed: Yes Anesthesia Postop Eval I Summary Anesthesia Postop Eval I Summary: Anesthesia Postop Eval I: Assessment Summary Airway patent Yes 01/07/25 17:07 Spontaneous unlabored Yes 01/07/25 17:07 respirations Mental status Asleep 01/07/25 17:07 nausea No 01/07/25 17:07 Vomiting No 01/07/25 17:07 Anesthesia Postop Eval I: Fluid Summary Crystalloid volume administer 750 01/07/25 17:07 (ml) Colloids volume administered ( ml) Blood Product volume administered (ml) Total IV fluid infused 750 01/07/25 17:07 Anesthesia Postop Eval I: Summary Notes Anesthesia Complication No 01/07/25 17:07 Anesthesia Complication Comment: Post-operative progress note Anesthesia: Postop Eval II Evaluation Mental status: Asleep (Arousable) Pain Level: 4 nausea: No Vomiting: No Complications Anesthesia Complication: No
--- OUTSIDE RECORDS SUMMARY | 2025-01-07 18:30 | XMS RPT_ITS | CCD ---
Author Organization [facility] Team Providers Care Vascular Sonographer Name Role Phone None, No PCP Unavailable [...] Care Provider Dr. Toro Diehl Attending Provider [facility] SECONDARY TEACHER, SECONDARY TEACHER-C Carlos Linda Attending Provider Anthony RN, Leandro Unavailable Libby RN, Amelia Unavailable Unavailable Leena PT, Estefany Unavailable JUSTIN WILLIAM Attending Unavailable JUSTIN WILLIAM Admitting Unavailable KATY FAUST Primary Care Unavailable Unavailable Primary Care Provider Unavailsawyer Rome MD, Marisela Unavailable Crispin VARGAS, Helen Zaidi Unavailable Dr. Katy Faust Primary Care Provider Dr. Katy Faust Referring Provider Ronnie SECONDARY TEACHER, SECONDARY TEACHER-C Carlos Linda Attending Provider Dr. Raghu Reynolds Attending Provider Dr. Raghu Reynolds Referring Provider Katy Faust MD Primary Care Provider Katy Faust Primary Care Provider SABRINA MUÑIZ Attending Unavailable KATY FAUST Primary Care Unavailable Sabrina Muñiz Unavailable Farhana VARGAS, Max Unavailable GISELA GENAO Referring Unavailab le Da Silva MAIL ROOM CLERK.SPECIAL EVENTS COORDINATOR, Srinivasan Unavailable Elena MAIL ROOM CLERK.SOYBEAN GROWER, Norm Unavailable GISELA GENAO Referring Unavailab le Elena MAIL ROOM CLERK.SOYBEAN GROWER, Norm Unavailable Da Silva MAIL ROOM CLERK.SPECIAL EVENTS COORDINATOR, Srinivasan Unavailable Dr. Katy Faust MD Primary [...] Dr. Katy Kwan Primary Care Provider [phone] Inna VARGAS, Dr. Katy Kwan Referring Provider [...] Gail VARGAS, Dr. Krishnamurthy Attending Physician Ronnie SECONDARY TEACHER-Carlos Shell Attending Physician NORM PARKER Attending Unavailable [...] Talampas, Katy D Primary Care Unavailable Anirudh, [place] Attending Unavailable Siddiqui, Howard Attending Unavailable Talampas, Katy D Referring Unavailable Talampas, Katy D Primary Care Unavailable Siddiqui, Howard Attending Unavailable Talampas, Katy D Referring Unavailable Talampas, Katy D Primary Care Unavailable Siddiqui, Howard Attending Unavailable Talampas, Katy D Referring Unavailable Talampas, Katy D Primary Care Unavailable Anirudh, [place] Attending Unavailable Talampas, Katy D Primary Care Unavailable Siddiqui, Howard Attending Unavailable Talampas, Katy D Referring Unavailable Talampas, Katy D Primary Care Unavailable Anirudh, [place] Attending Unavailable Talampas, Katy D Primary Care Unavailable Amato, Naty Attending Unavailable Amato, Naty Referring Unavailable Talampas, Katy D Primary Care Unavailable Allergies Allergy Classification Reported Allergen(s) Allergy Type Date of Onset Reaction(s) Facility Lincosamides (antibiotic) (3 sources) Clindamycin Drug Allergy 2 GI Upset [facility] Opioid Agonists (4 sources) Codeine; Translations: [codeine] Drug Allergy 8 GI Upset [facility] (20 sources) Codeine; Translations: [codeine] Drug Allergy 8 GI Upset, Other [facility] Work Phone: Comment on above: Sharp pain in stomac h (20 sources) Clindamycin; Translations: [CLINDAMYCIN] Drug Allergy 2 GI Upset, Other [facility] (20 sources) cat dander; Translations: [CAT DANDER] Propensity to adverse reactions 2 Other: See Comments [facility] (1 source) ALLERGIES NOT ON FILE; Translations: [ALLERGIES NOT ON FILE] Propensity to adverse reactions (disorder) [facility] (1 source) Clindamycin Drug Allergy 5 [facility] Repository (1 source) Codeine Drug Allergy 5 [facility] Repository Medications Current Medications Medication Drug Class(es) [...] Comment on above: Take 1 capsule by [facility] four times daily for 5 days. cholecalciferol [...] tablet d aily. Take 1 capsule by [facility] two times a week. ciprofloxacin 250 mg oral tablet (2 sources) Quinolone Antimicrobial Start: 07-11-19 End: 07-18-19 take 1 tablet by mouth twice daily ciprofloxacin HCl (CIPRO) 250 mg tablet Take 1 tablet by mouth twice daily for 7 days. 14 tablet 0 07/10/2021 07/17/2021 Active Comment on above: Take 1 tablet by [facility] twice daily for 7 days. enteric contrast [...] th daily at bedtime. For cholesterol per [facility]. bifidobacterium animalis [id number] unt / lactobacillus acidophilus [id number] unt oral capsule (2 sources) Start: 02-25-20 [...] Active docusate sodium 50 mg / sennosides, care home 8.6 mg oral tablet (5 sources) Start: [...] mouth at 11pm the night before surgery. Toledo-3 350 MG Oral Capsule Delayed Release (2 sources) Start: 02-24-2017 Toledo-3 350 MG Oral Capsule Delayed Release Quantity: [...] March 04, 2018 4:37pm polyethylene glycol 3350 60036 mg powder for oral solution (20 sources) Osmotic Laxative Start: 01-06-2022 End: 01-07-2022 polyethylene glycol 3350 (MIRALAX, GLYCOLAX) 17 gram/dose powder Use as directed for Miralax / Gatorade Bowel Prep Kit 238 g 0 01/06/2022 01/07/2022 End: 01-28-2022 polyethylene glycol 3350 (MD RALAX, GLYCOLAX) 17 gram packet Take 17 [...] Gatorade Bowel Prep Kit polyethylene glycol 3350 278452 mg / potassium chloride 2970 mg / sodium bicarbonate 6740 mg / sodium chloride 5860 mg / sodium sulfate 36789 mg powder for oral solution (11 sources) [...] on above: Take 1 capsule by mo [facility] once daily. 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, [address] Calcium [Mass/Vol] 8.4 mg/dL Normal 7.6-11.0 [facility] Comment on above: Performed By: #### L 500.2500, L100.0100 #### [facility] [address] [place], [address] Chloride [Moles/Vol] 104 mmol/L Normal 98-108 [facility] Comment on above: Performed By: #### L 500.2500, L100.0100 #### [facility] [address] [place], [address] CO2 [Moles/Vol] 21.5 mmol/L Normal 21.0-32.0 [facility] Comment on above: Performed By: #### L 500.2500, L100.0100 #### [facility] [address] [place], [address] Creatinine [Mass/Vol] 1.14 mg/dL Normal 0.70-1.20 [facility] Comment on above: Performed By: #### L 500.2500, L100.0100 #### [facility] [address] [place], [address] ECRCL 59.08 ml/min Normal 50-250 [facility] Comment on above: Performed By: #### L 500.2500, L100.0100 #### [facility] [address] [place], [address] GAP 12 Normal 5-15 [facility] Comment on above: Performed By: #### L 500.2500, L100.0100 #### [facility] [address] [place], [address] GFR/1.73 sq M.predicted among non-blacks MDRD (S/P/Bld) [Vol rate/Area] 67 mL/min/{1.73_m2} Normal >60 [facility] Comment on above: Result Comment: mL/m in/1.73m2 CKD-EPI Creatinine Equation (2020) Performed By: #### L 500.2500, L100.0100 #### [facility] [address] [place], [address] Glucose [Mass/Vol] 170 mg/dL High 70-99 [facility] Comment on above: Performed By: #### L 500.2500, L100.0100 #### [facility] [address] [place], [address] Potassium [Moles/Vol] 4.1 mmol/L Normal 3.3-5.1 [facility] Comment on above: Performed By: #### L 500.2500, L100.0100 #### [facility] [address] [place], [address] Sodium [Moles/Vol] 138 mmol/L Normal 133-145 [facility] Comment on above: Performed By: #### L 500.2500, L100.0100 #### [facility] [address] [place], [address] Urea nitrogen [Mass/Vol] 14 mg/dL Normal 4-19 [facility] Comment on above: Performed By: #### L 500.2500, L100.0100 #### [facility] [address] [place], [address] CBC W/Diff, Automatedon 11-0 -2024 Absolute Lymph 0.87 X10 3/uL Normal 0.83-4.51 [facility] Comment on above: Performed By: #### L 500.2500, L100.0100 #### [facility] [address] [place], [address] Absolute Neut 11.0 X10 3/uL High 2.0-7.7 [facility] Comment on above: Performed By: #### L 500.2500, L100.0100 #### [facility] [address] [place], [address] Basophils/100 WBC (Bld) 0.2 % Normal 0-1 [facility] Comment on above: Performed By: #### L 500.2500, L100.0100 #### [facility] [address] [place], [address] Eosinophils/100 WBC (Bld) 0.0 % Normal 0-5 [facility] Comment on above: Performed By: #### L 500.2500, L100.0100 #### [facility] [address] [place], [address] Erythrocyte distribution width (RBC) [Ratio] 14.2 % Normal 11.6-14.6 [facility] Comment on above: Performed By: #### L 500.2500, L100.0100 #### [facility] [address] [place], [address] Hematocrit (Bld) [Volume fraction] 37.2 % Low 40-54 [facility] Comment on above: Performed By: #### L 500.2500, L100.0100 #### [facility] [address] [place], [address] Hemoglobin (Bld) [Mass/Vol] 12.3 g/dL Low 13.0-16.5 [facility] Comment on above: Performed By: #### L 500.2500, L100.0100 #### [facility] [address] [place], [address] IG% 0.500 Normal 0.0-0.9 [facility] Comment on above: Result Comment: IG% - Immature Granulocytes (promyelocytes, myelocytes and metamyelocytes) > 1% indicates that a LEFT SHIFT is Present. Performed By: #### L 500.2500, L100.0100 #### [facility] [address] [place], [address] Lymphocytes/100 WBC (Bld) 6.8 % Low 19-41 [facility] Comment on above: Performed By: #### L 500.2500, L100.0100 #### [facility] [address] [place], [address] MCH (RBC) [Entitic mass] 31.3 pg Normal 27.0-32.0 [facility] Comment on above: Performed By: #### L 500.2500, L100.0100 #### [facility] [address] [place], [address] MCHC (RBC) [Mass/Vol] 33.1 g/dL Normal 32-36 [facility] Comment on above: Performed By: #### L 500.2500, L100.0100 #### [facility] [address] [place], [address] MCV (RBC) [Entitic vol] 94.7 fL High 80-94 [facility] Comment on above: Performed By: #### L 500.2500, L100.0100 #### [facility] [address] [place], [address] Monocytes/100 WBC (Bld) 7.4 % Normal 0-10 [facility] Comment on above: Performed By: #### L 500.2500, L100.0100 #### [facility] [address] [place], [address] Neutrophils/100 WBC (Bld) 85.1 % High 47-70 [facility] Comment on above: Performed By: #### L 500.2500, L100.0100 #### [facility] [address] [place], [address] Nucleated RBC (Bld) [#/Vol] 0 10*3/uL Normal 0-5 [facility] Comment on above: Performed By: #### L 500.2500, L100.0100 #### [facility] [address] [place], [address] Platelet mean volume (Bld) [Entitic vol] 10.6 fL Normal 6.2-12.0 [facility] Comment on above: Performed By: #### L 500.2500, L100.0100 #### [facility] [address] [place], [address] Platelets (Bld) [#/Vol] 203 10*3/uL Normal 150-450 [facility] Comment on above: Performed By: #### L 500.2500, L100.0100 #### [facility] [address] [place], [address] RBC (Bld) [#/Vol] 3.93 10*6/uL Low 4.6-6.2 [facility] Comment on above: Performed By: #### L 500.2500, L100.0100 #### [facility] [address] [place], [address] RDW SD 49.3 fl High 35.1-43.9 [facility] Comment on above: Performed By: #### L 500.2500, L100.0100 #### [facility] [address] [place], [address] WBC (Bld) [#/Vol] 12.9 10*3/uL High 4.4-11.0 [facility] Comment on above: Performed By: #### L 500.2500, L100.0100 #### [facility] [address] [place], [address] Discharge Instructionon 11-0 Discharge Instruction [facility] Medical Records Department [address] [place] [address] Instructions for Home/Discharge Instructions 01/03/25 1313 MR#: [id number] Acct: [id number] Name: JAI LUNA Rep #: [id number] : 1950 74 From: Zaira CAMACHO PCP: [...] MD; Dr. Cherelle Christian MD Signed Normal [facility] Bedside Glucoseon 01-02-2025 FINGERSTICK GLU 69 mg/dL Low 74-106 [facility] Comment on above: Result Comment: ZENA FAUST OF PATIENT CARE PER NURSING PROTOCOL Performed By: #### L 501.080 #### [facility] [address] [place], [address] Consultation - Hospitaliston 01-02-2025 Consultation - Hospitalist [facility] Medical Records Department [address] [place] [address] Consultation - Hospitalist 01/02/25 1835 MR#: [id number] Acct: [id number] Name: JAI LUNA Rep #: [id number] : 1950 74 From: Ahsan Younger DO PCP: Dr. Katy Faust MD Status:ADM RUDDY [facility] Assessment Plan Assessment/Plan (1) Spinal stenosis of lumbar region with neurogenic claudication: PLAN: Plan Patient is a 74-year-old male who presented to [facility] on 01/02/25 for planned L3- 5 laminectomy [...] vascular disease, hypertension, hyperlipidemia ??? Follows with [place] [facility]. History of CABG in 1999 and [...] is a 74 M who presented to [facility] on 01/02/2025 for planned orthopedic procedure. Medicine [...] He denies any other acute concerns currently. [facility] Medical History Leg cramps Obesity (BMI [...] 12/22/16) Essential hypertension Atherosclerotic heart disease of [place] coronary artery without angina pectoris Hypoacusis Dyslipidemia [...] Carotid artery stenosis Surgical History ... Normal [facility] Lumbar Spine 2 or 3 Viewson 01-02-2025 Lumbar Spine 2 or 3 Views [facility] Imaging Services [address] [place] [address] [id number] Lumbar Spine 2 or 3 Views MR#: [id number] Acct: [id number] Name: JAI LUNA Rep #: [id number] : 1950 M 74 From: Armand Miller MD PCP: Dr. Katy Faust MD Status: ADM RUDDY Study: Lumbar Spine 2 or 3 Views Date of Exam: Exam# [id number] Ordering Dr: Howard Siddiqui MD EXAM: XR [...] operative note for further details. Reading Location: [facility]- CC: Dr. Howard Siddiqui MD; Dr. Katy Faust MD Windows Server Support Technician: Signed [facility] MR/POSTOP.ANEon 01-02-2025 MR/POSTOP.[facility] Medical Records Department [address] [place] [address] Anesthesia Postop Eval I 01/02/25 1457 MR#: [id number] Acct: [id number] Name: JAI LUNA Rep #: [id number] : 1950 74 From: Michael Kat CRNA PCP: Dr. Katy Faust MD Status:REG SDC Y Race: C Location: [place] [address] Anesthesia: Postop Eval I Current Vital Signs [...] Kat CRNA Cosigner Signature: Date CC: Signed [facility] MR/[id number] 01-02-2025 MR/POSTOPAN2 [facility] Medical Records Department [address] [place] [address] Anesthesia Postop Eval II 01/02/25 1556 MR#: [id number] Acct: [id number] Name: JAI LUNA Rep #: [id number] : 1950 74 From: Nehal Villagran CONSULTING NURSE PCP: Dr. Katy Faust MD Status:REG SDC Y Race: C Location: [place] [address] Anesthesia Postop Eval I Sum Postop Eval Completion status Anesthesia document: Postop Eval 1 completed: Yes Anesthesia Postop Eval I Summary Anesthesia Postop Eval I Summary: Anesthesia Postop Eval I: Assessment Summary Airway patent Yes 01/02/25 14:58 CONSULTING NURSE.PKEL Spontaneous unlabored Yes 01/02/25 14:58 CONSULTING NURSE.PKEL respirations Mental status Awake,Calm 01/02/25 14:58 CONSULTING NURSE.PKEL nausea No 01/02/25 14:58 CONSULTING NURSE.PKEL Vomiting No 01/02/25 14:58 CONSULTING NURSE.PKEL Anesthesia Postop Eval I: Fluid Summary Crystalloid volume administer 1,700 01/02/25 14:58 CONSULTING NURSE.PKEL (ml) Colloids volume administered ( ml) Blood Product volume administered (ml) Total IV fluid infused 1,700 01/02/25 14:58 CONSULTING NURSE.PKEL Anesthesia Postop Eval I: Summary Notes Anesthesia Complication No 01/02/25 14:58 CONSULTING NURSE.PKEL Anesthesia Complication Comment: Post-operative progress note Anesthesia: Postop Eval II Evaluation Mental status: Awake and Calm Pain Level: 4 nausea: No Vomiting: No Complications Anesthesia Complication: No 01/02/25 1556 Date Nehal Villagran CONSULTING NURSE Cosigner Signature: Date CC: Signed Normal [facility] Operative Reporton 5 Operative Report [facility] Medical Records Department [address] [place] [address] Operative Report 01/02/25 1449 MR#: [id number] Acct: [id number] Name: LUNAJAI M Rep #: [id number] : 1950 74 From: Howard Siddiqui MD PCP: Dr. Katy Faust MD Status:[facility] Location: [place] [address]- Procedures Musculoskeletal 20xxx-29xxx: Other Procedure See Report Operative Report (Standard) Operative Information Date of Procedure: 01/02/25 Pre-Operative Diagnosis: L3-5 stenosis with neurogenic claudication Post-Operative Diagnosis: Same Surgery/Procedure Performed: L3-5 laminectomy, partial facetectomy, foraminotomy, decompression crab catcher: Yes [employer] Supervisor: Zaira De Jesus Tasks completed by first mate: Closing, Removing tissue, Hemostasis: Electrocautery and Retracting [...] foraminotomy Decompression of L5 nerve root CPT 58579 Decompression of L4 nerve root CPT 73871 Decompression of L3 nerve root CPT 71258 Attending Surgeon: Dr. Howard Siddiqui Estimated blood [...] of the pars was also identified. A [place] was then placed under the inferior edge of the lamina and a C-arm lateral view was repeated. The level was confirmed to be the L3-4 interspace. Exposure of L3-5 interspaces were then completed. A [place] retractor of appropriate depth was then placed to provide retraction throughout the remainder of the surgery. A bone cutter was used to remove the spinous process. [employer] bone scalpel was then utilized to first [...] both sides. (more content not included)... Normal [facility] CNOVon 12-26-2024 CNOV Office Visit (INTMWS ) JAI LUNA ([id number]) 1950 M Date Time Provider Department 12/26/24 7:00 AM SRINIVASAN DA SILVAMWS During your visit today, we recorded the following information about you: Temperature Pulse Respiration Blood pressure 98.5 degrees 58/minute 16/minute 139/71 Weight 88.4 kg Srinivasan Da Silva APRN.[facility] 12/26/2024 7:44 AM Signed Subjective Patient ID: Chaka is a 74 year old male who presents for Pre-Op Exam. HPI Jai Luna is a 74-year-old male with CAD s/p CABG, coronary stents, hyperlipidemia and lumbar spinal stenosis, presenting for preoperative evaluation prior to lumbar decompression surgery. Preoperative Evaluation: - Scheduled for back surgery on 06/03 at [facility] by Dr. Siddiqui to address spinal stenosis in the lower spine. - Has seen [facility] for pre-surgery evaluation. He has [...] lumbar spine surgery scheduled on the at [facility] with Dr. Siddiqui. - No active infection, [...] perspective. CBC and CMP was completed at [facility] on December 20. - Advised to call Dr. Siddiqui's office the day before surgery to confirm surgery time if he does not receive a call with his surgery time. 2. Spinal stenosis of lumbar region with neurogenic claudication (M48.062) - Chronic lumbar spinal stenosis with neurogenic claudication affecting left leg; surgery planned to address this. 3. Coronary artery disease involving [place]ore[place] sl[place] coronary artery of [place] heart without angina pectoris (I25.10) 4. S/P CA (more content not included)... Normal [facility] Orthopedic Visit Reporton Orthopedic Visit Report [facility] [address] [address] OFFICE VISIT Date of Service: 12/22/24 MR#: [id number] Acct: [id number] Name: JAI LUNA Rep #: [id number] : 1950 Provider: Dr. Howard Siddiqui MD Age/Sex: 74/M Location: [facility] Status: Signed Intake Vital Signs 10/13/24 08:58 [...] 12/22/16) Essential hypertension Atherosclerotic heart disease of [place] coronary artery without angina pectoris Hypoacusis Dyslipidemia [...] by me, Dr. Howard Siddiqui MD 12/22/24 0947. Part of today???s visit was documented by [...] recommended by a stoma nurse at the [facility]. 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 He underwent surgery to remove the clots and was initially treated w (more content not included)... Normal [facility] MRSA/SAID NASAL SCREENon MRSA+SAID SCRN Reason for Exam: preop MRSA MRSA Negative S. AUREUS S. aureus Negative Normal [facility] Comment on above: Performed By: #### M 100.651, L501.5200, L100.0100, L501.9985, BTSPAT, L500.2500 ####[facility] [address] [place], [place], [id number] Basic Metabolic Profile (BMP )on 12-20-2024 BUN/CRE 14.7 RATIO Normal 12-18 [facility] Comment on above: Performed By: #### M 100.651, L501.5200, L100.0100, L501.9985, BTSPAT, L500.2500 ####[facility] [address] [place], [place], [phone] Calcium [Mass/Vol] 8.9 mg/dL Normal 7.6-11.0 [facility] Comment on above: Performed By: #### M 100.651, L501.5200, L100.0100, L501.9985, BTSPAT, L500.2500 ####[facility] [address] [place], [address] Chloride [Moles/Vol] 106 mmol/L Normal 98-108 [facility] Comment on above: Performed By: #### M 100.651, L501.5200, L100.0100, L501.9985, BTSPAT, L500.2500 ####[facility] [address] [place], [address] CO2 [Moles/Vol] 20.5 mmol/L Low 21.0-32.0 [facility] Comment on above: Performed By: #### M 100.651, L501.5200, L100.0100, L501.9985, BTSPAT, L500.2500 ####[facility] [address] [place], [address] Creatinine [Mass/Vol] 1.25 mg/dL High 0.70-1.20 [facility] Comment on above: Performed By: #### M 100.651, L501.5200, L100.0100, L501.9985, BTSPAT, L500.2500 ####[facility] [address] [place], [address] GAP 11 Normal 5-15 [facility] Comment on above: Performed By: #### M 100.651, L501.5200, L100.0100, L501.9985, BTSPAT, L500.2500 ####[facility] [address] [place], [address] GFR/1.73 sq M.predicted among non-blacks MDRD (S/P/Bld) [Vol rate/Area] 60 mL/min/{1.73_m2} Normal >60 [facility] Comment on above: Result Comment: mL/m in/1.73m2 CKD-EPI Creatinine Equation (2020) Performed By: #### M 100.651, L501.5200, L100.0100, L501.9985, BTSPAT, L500.2500 ####[facility] [address] [place], [address] Glucose [Mass/Vol] 100 mg/dL High 70-99 [facility] Comment on above: Performed By: #### M 100.651, L501.5200, L100.0100, L501.9985, BTSPAT, L500.2500 ####[facility] [address] [place], [address] Potassium [Moles/Vol] 4.2 mmol/L Normal 3.3-5.1 [facility] Comment on above: Performed By: #### M 100.651, L501.5200, L100.0100, L501.9985, BTSPAT, L500.2500 ####[facility] [address] [place], [address] Sodium [Moles/Vol] 138 mmol/L Normal 133-145 [facility] Comment on above: Performed By: #### M 100.651, L501.5200, L100.0100, L501.9985, BTSPAT, L500.2500 ####[facility] [address] [place], [address] Urea nitrogen [Mass/Vol] 18 mg/dL Normal 4-19 [facility] Comment on above: Performed By: #### M 100.651, L501.5200, L100.0100, L501.9985, BTSPAT, L500.2500 ####[facility] [address] [place], [address] CBC W/Diff, Automatedon 10-2 Absolute Lymph 1.88 X10 3/uL Normal 0.83-4.51 [facility] Comment on above: Performed By: #### M 100.651, L501.5200, L100.0100, L501.9985, BTSPAT, L500.2500 ####[facility] [address] [place], [address] Absolute Neut 4.4 X10 3/uL Normal 2.0-7.7 [facility] Comment on above: Performed By: #### M 100.651, L501.5200, L100.0100, L501.9985, BTSPAT, L500.2500 ####[facility] [address] [place], [address] Basophils/100 WBC (Bld) 0.9 % Normal 0-1 [facility] Comment on above: Performed By: #### M 100.651, L501.5200, L100.0100, L501.9985, BTSPAT, L500.2500 ####[facility] [address] [place], [address] Eosinophils/100 WBC (Bld) 4.2 % Normal 0-5 [facility] Comment on above: Performed By: #### M 100.651, L501.5200, L100.0100, L501.9985, BTSPAT, L500.2500 ####[facility] [address] [place], [address] Erythrocyte distribution width (RBC) [Ratio] 14.0 % Normal 11.6-14.6 [facility] Comment on above: Performed By: #### M 100.651, L501.5200, L100.0100, L501.9985, BTSPAT, L500.2500 ####[facility] [address] [place], [address] Hematocrit (Bld) [Volume fraction] 42.6 % Normal 40-54 [facility] Comment on above: Performed By: #### M 100.651, L501.5200, L100.0100, L501.9985, BTSPAT, L500.2500 ####[facility] [address] [place], [address] Hemoglobin (Bld) [Mass/Vol] 14.3 g/dL Normal 13.0-16.5 [facility] Comment on above: Performed By: #### M 100.651, L501.5200, L100.0100, L501.9985, BTSPAT, L500.2500 ####[facility] [address] [place], [address] IG% 0.400 Normal 0.0-0.9 [facility] Comment on above: Result Comment: IG% - Immature Granulocytes (promyelocytes, myelocytes and metamyelocytes) > 1% indicates that a LEFT SHIFT is Present. Performed By: #### M 100.651, L501.5200, L100.0100, L501.9985, BTSPAT, L500.2500 ####[facility] [address] [place], [address] Lymphocytes/100 WBC (Bld) 24.8 % Normal 19-41 [facility] Comment on above: Performed By: #### M 100.651, L501.5200, L100.0100, L501.9985, BTSPAT, L500.2500 ####[facility] [address] [place], [address] MCH (RBC) [Entitic mass] 31.2 pg Normal 27.0-32.0 [facility] Comment on above: Performed By: #### M 100.651, L501.5200, L100.0100, L501.9985, BTSPAT, L500.2500 ####[facility] [address] [place], [address] MCHC (RBC) [Mass/Vol] 33.6 g/dL Normal 32-36 [facility] Comment on above: Performed By: #### M 100.651, L501.5200, L100.0100, L501.9985, BTSPAT, L500.2500 ####[facility] [address] [place], [address] MCV (RBC) [Entitic vol] 92.8 fL Normal 80-94 [facility] Comment on above: Performed By: #### M 100.651, L501.5200, L100.0100, L501.9985, BTSPAT, L500.2500 ####[facility] [address] [place], [address] Monocytes/100 WBC (Bld) 11.3 % High 0-10 [facility] Comment on above: Performed By: #### M 100.651, L501.5200, L100.0100, L501.9985, BTSPAT, L500.2500 ####[facility] [address] [place], [address] Neutrophils/100 WBC (Bld) 58.4 % Normal 47-70 [facility] Comment on above: Performed By: #### M 100.651, L501.5200, L100.0100, L501.9985, BTSPAT, L500.2500 ####[facility] [address] [place], [address] Nucleated RBC (Bld) [#/Vol] 0 10*3/uL Normal 0-5 [facility] Comment on above: Performed By: #### M 100.651, L501.5200, L100.0100, L501.9985, BTSPAT, L500.2500 ####[facility] [address] [place], [address] Platelet mean volume (Bld) [Entitic vol] 10.3 fL Normal 6.2-12.0 [facility] Comment on above: Performed By: #### M 100.651, L501.5200, L100.0100, L501.9985, BTSPAT, L500.2500 ####[facility] [address] [place], [address] Platelets (Bld) [#/Vol] 229 10*3/uL Normal 150-450 [facility] Comment on above: Performed By: #### M 100.651, L501.5200, L100.0100, L501.9985, BTSPAT, L500.2500 ####[facility] [address] [place], [address] RBC (Bld) [#/Vol] 4.59 10*6/uL Low 4.6-6.2 [facility] Comment on above: Performed By: #### M 100.651, L501.5200, L100.0100, L501.9985, BTSPAT, L500.2500 ####[facility] [address] [place], [address] RDW SD 48.1 fl High 35.1-43.9 [facility] Comment on above: Performed By: #### M 100.651, L501.5200, L100.0100, L501.9985, BTSPAT, L500.2500 ####[facility] [address] [place], [address] WBC (Bld) [#/Vol] 7.6 10*3/uL Normal 4.4-11.0 [facility] Comment on above: Performed By: #### M 100.651, L501.5200, L100.0100, L501.9985, BTSPAT, L500.2500 ####[facility] [address] [place], [address] Hemoglobin A1con 12-20-2024 HbA1c (Bld) [Mass fraction] 6.1 % High <=5.6 [facility] Comment on above: Result Comment: Norm al < 5.7 % Prediabetic 5.7 - 6.4 % Diabetic >or= 6.5 % Please note range changes. Performed By: #### M 100.651, L501.5200, L100.0100, L501.9985, BTSPAT, L500.2500 ####[facility] [address] [place], [address] Magnesiumon 12-20-2024 Magnesium [Mass/Vol] 2.3 mg/dL High 1.5-2.2 [facility] Comment on above: Performed By: #### M 100.651, L501.5200, L100.0100, L501.9985, BTSPAT, L500.2500 ####[facility] [address] [place], [address] Type AND Screen - PAT ONLYon 12-20-2024 Ab SCREEN GEL Negative Normal [facility] Comment on above: Order Comment: Reaso n for Laboratory Test [id number]/ANNSlumbar laminectomy Performed By: #### M 100.651, L501.5200, L100.0100, L501.9985, BTSPAT, L500.2500 ####[facility] [address] [place], [place], [address] MR/PAT.ANEon 12-19-2024 MR/PAT.ANE [facility] Medical Records Department [address] [place] [address] PAT - Anesthesia 12/19/24 1740 MR#: [id number] Acct: [id number] Name: JAI LUNA Rep #: [id number] : 1950 74 From: Dexter Wheeler MD PCP: Dr. Katy Faust MD Status:PRE [facility] Y Race: C Location: 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 Hx Hospitalization Yes: 12/2023 cervical fusion 12/19/24 [...] take am of surgery PONV PONV - chief of police: PONV - chief of police Female No 12/19/24 10:25 HX of Motion [...] 10/13/24 08:58 Respiratory Assessment Respiratory Assessment - chief of police: Respiratory Tract Infection Hx - chief of police Hx Respiratory Tract Infection No 12/19/24 10:25 STOP Sleep Apnea STOP Sleep Apnea - chief of police: STOP Sleep Apnea - chief of police Hx Hypertension No 12/19/24 10:25 Hx Sleep [...] Tobacco Use History Tobacco Use History - chief of police: Tobacco Use History - chief of police Tobacco Use Smoking Status Former smoker 12/19/24 10:25 Hx Tobacco Use No 12/19/24 10:25 Years Smoking Packs Smoked per Day Smoking Cessation Date was No - quit smoking greater 12/19/24 10:25 within the last 15 years than 15 years ago Hx Smoking Cessation Date 02/19/00 12/19/24 10:25 Hx Smoking Cessation No 12/19/24 10:25 Counseling Hematologic Medial History Hematologic Hx - chief of police: 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 Normal [facility] Cardiology Visit Reporton Cardiology Visit Report [facility] [address] [place], [place] [address] OFFICE VISIT Date of Service: 11/29/24 MR#: [id number] Acct: [id number] Name: JAI LUNA Rep #: [id number] : 1950 Provider: ALTAGRACIA zaidi Age/Sex: 74/M [...] abdominal area, he was lift flighted to [facility]. He then had complications for PE/DVTs. He [...] from a previous echo done at the [facility] 02/13/2022. The last catheterization November 2016 the [...] procedures. The stenting procedures were done at [facility] by Dr. Joshua Lloyd. He denies [...] (%) 95 Intake Visit Reasons: Clearance visit Medical Device Assembler Required: No Is patient in pain?: No [...] lumbar surgery scheduled for december dr. siddiqui [facility] Medical History (Updated 11/29/24 @ 11:05 by Carlos Trujillo SECONDARY TEACHER, SECONDARY TEACHER-C) Obesity (BMI 30.0-34.9) MRSA (methicillin resistant staph aureus) culture positive Deaf Wears hearing aid Wears glasses Cancer High cholesterol DVT (deep venous thrombosis) Injury of head and neck Loss of consciousness Gastric reflux Former smoker History of edema History of echocardiogram History of stress test Cardiology follow-up encounte (more content not included)... Normal [facility] Orthopedic Visit Reporton Orthopedic Visit Report [facility] [address] [place] [address] [address] [place] [address] OFFICE VISIT Date of Service: 10/13/24 MR#: [id number] Acct: [id number] Name: JAI LUNA Rep #: [id number] : 1950 Provider: Dr. Howard Siddiqui MD Age/Sex: 74/M [place] [facility] Status: Signed Intake Vital Signs 04/25/24 10:35 [...] 12/22/16) Essential hypertension Atherosclerotic heart disease of [place] coronary artery without angina pectoris Hypoacusis Dyslipidemia [...] treated s (more content not included)... Normal [facility] Arterial Doppler ultrasound reportOrdered By: Raghu Reynolds on 10-10-2024 Study report [facility] [address] [place] [address] US Art Duplex Unilat UP Extrem 10/10/24 0807 MR#: [id number] Acct: [id number] Name: JAI LUNA Rep #:[id number] : 1950 74 From: Raghu Kwan Attending [...] Dictated: 10/10/24 0807 Date Transcribed: 10/10/24 1343 Windows Server Support Technician: Signed [facility] Work Phone: Arterial study reportOrdered By: Raghu Reynolds on 10-10-2024 Noninvasive arteriosclerosis study report [facility] [address] [place] [address] Upper Extremity Arterial Study 10/10/24825 MR#: [id number] Acct: [id number] Name: JAI LUNA Rep #:[id number] : 1950 74 From: Raghu Kwan Attending Dr: JANICE Bocanegra Stat us: REG CLI Ordering Dr: Naty Amato Date: Location: [facility] Sex: M C Admitted: Reason For Study [...] Physician: Katy Faust Performed By: Saúl Pearson, [facility] 10/10/24 1341 Date _ Raghu Reynolds MD CC: JANICE Bocanegra; Dr. Katy Faust MD ~ Date Dictated: 10/10/24825 Date Transcribed: 10/10/24 134 Windows Server Support Technician: Signed [facility] Work Phone: US Art Duplex Unilat UP [facility] 10-10-2024 US Art Duplex Unilat UP Extrem [facility] [address] [place] [address] US Art Duplex Unilat UP Extrem 10/10/24 08 MR#: [id number] Acct: [id number] Name: JAI LUNA Rep #: [id number] : 1950 74 From: Raghu Reynolds MD [...] Dictated: 10/10/24 08 Date Transcribed: 10/10/24 134 Windows Server Support Technician: Signed Normal [facility] Upper Extremity Arterial Diogo dyon 10-10-2024 Upper Extremity Arterial Study [facility] [address] [place] [address] Upper Extremity Arterial Study 10/10/24 0826 MR#: [id number] Acct: [id number] Name: JAI LUNA Rep #: [id number] : 1950 74 From: Raghu Reynolds MD Attending Dr: JANICE Bocanegra Status: REG CLI Ordering Dr: Naty Amato Date: 10/10/24 Location: [facility] Sex: M C Admitted: Reason For Study [...] Ordering Physician: Naty Amato Referring Physician: Katy Fauts Performed By: Saúl Pearson, RVT 10/10/24 1341 Date Raghu Reynolds MD CC: JANICE Bocanegra; Dr. Katy Faust MD Date Dictated: 10/10/24825 Date Transcribed: 10/10/24 134 Windows Server Support Technician: Signed Normal [facility] PT D/C Summary (1)on 025 PT D/C Summary (1) [facility] Physical Therapy [facility] [address] [place] [address] [address] [place] [address] / REHABILITATION SERVICES DISCHARGE SUMMARY MR#: [id number] Acct: [id number] Name: JAI LUNA Rep #: [id number] : 1950 74 From: Vinh Sweeney PT, ATC Referring Dr.: Dr. Howard Siddiqui MD Status: REG RCR Insurance: MEDICARE PART A B [facility] Discharge Summary D/C summary: It has been [...] please feel free to call me at [phone]. Thank you for the referral of this patient. Sincerely, Vinh Sweeney, PT, ATC Balance/Gait/Function al tests Balance/Special Test Scores Oswestry Low Back Score: 6 Improvement % Improvement: 70 09/22/24 0903 CC: Dr. Howard Siddiqui MD; Dr. Katy Faust MD [facility] Signed Normal [facility] Spine Thoracic W/WO Contrast on 09-20-2024 Spine Thoracic W/WO Contrast [facility] Imaging Services [address] [place] [address]33831 Spine Thoracic W/WO Contrast MR#: [id number] Acct: [id number] Name: JAI LUNA Rep #: [id number] : 1950 74 From: Vikash Hoffman MD PCP: Dr. Katy Faust MD Status: REG CLI Study: Spine Thoracic W/WO Contrast Date of Exam: Exam# [id number] Ordering Dr: Howard Siddiqui MD PROCEDURE: SPINE [...] No evidence of acute process. Reading Location: [facility] CC: Dr. Howard Siddiqui MD; Dr. Katy Faust MD Windows Server Support Technician: Signed Normal [facility] Orthopedic Visit Reporton Orthopedic Visit Report [facility] [address] [place] [address] OFFICE VISIT Date of Service: 09/13/24 MR#: [id number] Acct: [id number] Name: JAI LUNA Rep #: [id number] : 1950 Provider: Dr. Howard Siddiqui MD Age/Sex: 74/M Location: [facility] Status: Signed Intake Vital Signs 04/25/24 10:35 [...] 12/22/16) Essential hypertension Atherosclerotic heart disease of [place] coronary artery without angina pectoris Hypoacusis Dyslipidemia [...] by me, Dr. Howard Siddiqui MD 09/13/24 0416. Part of today???s visit was documented by Radha MUSTAFA and Izzy Castro RN, acting as scribe. JAI LUNA is a 74 year old M here today for pain that he has been having underneath his left scapula that started 6 weeks ago. He thought at first it was a strained muscle but it has worsened over time. He did see Norm Alvarez an anesthesiology physician assistant of his PCP. She did prescribed [...] male pr (more content not included)... Normal [facility] Thoracic Spine 3 Viewson Thoracic Spine 3 Views [facility] Imaging Services [address] [place] [address] Thoracic Spine 3 Views MR#: [id number] Acct: [id number] Name: JAI LUNA Rep #: [id number] : 1950 M 74 From: Enedina Mitchell nd, MD PCP: Dr. Katy Faust MD Status: DEP AMB Study: Thoracic Spine 3 Views Date of Exam: 09/13/24 Exam# [id number] Ordering Dr: Zaira De Jesus PROCEDURE: THORACIC [...] finding. Chronic findings as described. Reading Location: [id number] CC: JANICE Barakat; Dr. Katy Faust MD Windows Server Support Technician: Signed Normal [facility] Inital Evaluation (1) - PTon 08-29-2024 Inital Evaluation (1) - PT [facility] Physical Therapy [facility] [address] [place] [address] / REHABILITATION SERVICES INITIAL EVALUATION MR#: [id number] Acct: [id number] Name: JAI LUNA Rep #: [id number] : 1950 74 From: Vinh Sweeney PT, [...] to be FAXED BACK to us at [phone] for Medicare purposes. For Medicare only, by signing this I certify the plan of care. Please let me know if there are questions or concerns regarding this plan of care. Physician Signature: Date : 08/29/24 1124 CC: Dr. Howard Siddiqui MD; Dr. Katy Faust MD [facility] Signed Normal [facility] MR/BMS.BVSon 08-22-2024 MR/BMS.BVS [facility] Vascular Surgery [address] [place], [place] [address] [place] [address] OFFICE VISIT Date of Service: 08/23/24 MR#: [id number] Acct: [id number] Name: JAI LUNA Rep #: [id number] : 1950 Provider: JANICE Bocanegra Age/Sex: 74/M Location[place] [facility] Status: Signed Intake Vital Signs 04/25/24 10:35 [...] you fallen in the past year?: No [facility] MRSA (methicillin resistant [...] 12/22/16) Essential hypertension Atherosclerotic heart disease of [place] coronary artery without angina pectoris Hypoacusis Dyslipidemia [...] thyroid diseas (more content not included)... Normal [facility] CNOVon 08-15-2024 CNOV Office Visit (INTMWS ) JEREMYJAI M ([id number]) 1950 M Date Time Provider Department 08/15/24 3:20 PM NORM PARKER INTMWS During your visit today, we recorded the following information about you: Pulse Blood pressure Weight 62/minute 132/70 87.3 kg Norm Parker APRN.SOYBEAN GROWER 08/15/2024 4:07 PM Signed SUBJECTIVE Jai Luna [...] ([facility]) - 07/21/2022 Pulmonary Embolism and Infarction ([facility]) - 03/02/2022 Pulmonary Embolism ([facility]) - 02/13/2022 Hypokalemia - 02/10/2022 Urinary Retention - [address] ([facility]) - 01/28/2022 Rectal Cancer ([facility]) - 01/27/2022 Rectal Malignant Neoplasm ([facility]) - 05/29/2021 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 Musculoske (more content not included)... Normal [facility] Arterial study reportOrdered By: Raghu Reynolds on 08-03-2024 Noninvasive arteriosclerosis study report [facility] Cardi[facility] Services [address] [place] [address] Upper Extremity Arterial Study 08/01/24 0849 MR#: [id number] Acct: [id number] Name: JEREMYJAI M Rep #:[id number] : 1950 74 From: Raghu Kwan Attending [...] Dictated: 08/01/24 0849 Date Transcribed: 08/03/24 1039 Windows Server Support Technician: Signed [facility] Work Phone: Upper Extremity Arterial Diogo dyshruti 08-01-2024 Upper Extremity Arterial Study [facility] [place] [address] Upper Extremity Arterial Study 08/01/24 0849 MR#: [id number] Acct: [id number] Name: JAI LUNA Rep #: [id number] : 1950 74 From: Raghu Reynolds MD [...] Date Dictated: 08/01/24 0849 Date Transcribed: 08/03/241038 Windows Server Support Technician: Signed [facility] CNNURSEon 07-31-2024 CNNURSE Nurse Visit ([facility]) JAI LUNA ([id number]) 1950 M Date Time Provider Department 07/31/24 [...] 45 minutes TRAVIS RobbinsN RN CWOCN [facility] nursing pager [phone] (M-F 7a-4p, Sat, Sun, Holiday 7a-3p) Allergies As of Date: 07/31/2024 Noted Allergy Reaction CAT DANDER 02/27/2022 14 - Other: See Comments CLINDAMYCIN 03/28/2021 8 - GI Upset CODEINE 06/20/2007 8 - GI Upset Date Reviewed: 07/05/2024 Reviewed by: Norm Parker APRN.SOYBEAN GROWER - Fully Assessed Primary Visit Diagnosis:Attention to [...] embolism [Z86.711] 09/22/2023 PVD (peripheral vascular disease) ([facility]) [I73.9] 09/22/2023 History of DVT (deep vein thrombosis) [Z86.718] 09/22/2023 Encounter Status:Closed by LEONARDO VILLAREAL on 07/31/24 [facility] CNPN Telephone ([facility]) JAI LUNA ([id number]) 1950 M Date Time Provider Department 07/18/24 Ramiro CHEUNG During your visit today, we recorded the following information about you: [facility], Jeyson Jackson 07/18/2024 11:46 AM Signed Jai Luna [phone], checking the status of new order being sent to [facility] [phone], fax [phone]. Praveena Duran, RN 07/18/2024 12:47 PM Signed WO nursing returned patient message regarding: Pt needs an updated supply form faxed to [facility]. Left Message: No- spoke directly to pt Information/Recommend ations provided regarding: Updated supply form faxed to [facility] as requested. Fax confirmation received. All WO Nursing needs addressed. Time spent: 15 minutes TRAVIS HoffmanN, RN, CWOCN For non-emergent WO Nursing patient care needs - Please place a consult via Epic under "ostomy". WOC Nurse Available Hours: M-F: [phone]; Weekends AND Holidays: [phone] For emergent WO Nursing patient care needs - Page #[phone], during available hours only. Allergies As of [...] Encounter Status:Closed by JEYSON ELKINS on 07/18/24 [facility] JEREMYJAI Sevilla ([id number]) 1950 M Date Time Provider Department 07/17/24 8:15 AM STOMA THERAPY EMIGDIO During your visit today, we recorded the following information about you: Praveena Duran RN 07/18/2024 12:44 PM Addendum [facility] Nursing Consult Topic: [facility] Consultation Note Outcome: Pt to A30 for appointment with [facility] Nursing. He has an established ileostomy for several years. He is here today with complaints of peristomal ulcer and pain. We discussed switching from a flat to a convex pouching system. Pt agreed with this. He has an established relationship with [employer] for supplies. If he likes the new pouch he can order it from [employer]. I provided him with x4 sets of samples. Next Scheduled Visit: 2 week for f/u with [facility] nursing to assess peristomal ulcer and new [...] Convatec SurFit Natura Durahesive flat cut-to-fit flange. [place] CearRing. Drainable pouch. Wear Time Goal: 3 days Time Increment: 1 hour SCOTTIE Hoffman, RN, CWOCN For non-emergent [facility] Nursing patient care needs - Please place a consult via Epic under "ostomy". WO Nurse Available Hours: M-F: [phone]; Weekends AND Holidays: [phone] For emergent [facility] Nursing patient care needs - Page #[phone], during available hours only. Praveena Duran RN 07/18/2024 12:41 [place] [address] Patient: Jai Luna Patient Address: [address] [place] [address] Preferred Gender: male Date of : 1950 Type of Stoma: Loop Ileostomy Diagnosis: Ileostomy Status Z93.2 OSTOMY SUPPLY ORDER FORM Pouch: ConvaTec: 1 ?" Natura + Drainable pouch, Transparent #[id number] 30 day use - 2 Boxes Wafer: [employer]ec: Hailey-Fit Natura 1 3/" Flat Durahesive # [id number] 30 day use - 2 Boxes Moldable Ring: [place] CeraRing Regular # [id number] 30 day use - 2 Boxes Refills: 11 Attending Physician: Dr. Cheung For immediate authorization, please contact the physician?s office. SIGNATURE: Praveena Duran RN PATIENT NAME: Jai Luna DATE: July 18, 2024 TIME: 12:38 PM CONTACT #: [phone] Allergies As of Date: 07/17/2024 Noted Allergy Reaction CAT DANDER 02/27/2022 14 - Other: See Comments CLINDAMYCIN 03/28/2021 8 - GI Upset CODEINE 06/20/2007 8 - GI Upset Date Reviewed: 07/05/2024 Reviewed by: Norm Parker APRN.SOYBEAN GROWER - Fully Assessed Primary Visit Diagnosis:Attention to [...] [M54.12] 04/30/2021 (more content not included)... Normal [facility] Orthopedic Visit Reporton Orthopedic Visit Report [facility] [address] [place] [address] OFFICE VISIT Date of Service: 07/06/24 MR#: [id number] Acct: [id number] Name: JAI LUNA Rep #: [id number] : 1950 Provider: Dr. Howard Siddiqui MD Age/Sex: 74/M [place] [facility] Status: Signed Intake Vital Signs 04/25/24 10:35 [...] 12/22/16) Essential hypertension Atherosclerotic heart disease of [place] coronary artery without angina pectoris Hypoacusis Dyslipidemia [...] He has an appointment on 07/17/24 in [place] for an evaluation and possible surgery. 04/21/24: [...] along with (more content not included)... Normal [facility] CNOVon 07-05-2024 OV Office Visit (INTMWS ) JAI LUNA ([id number]) 1950 M Date Time Provider Department 07/05/24 8:00 AM NORM PARKER During your visit today, we recorded the following information about you: Pulse Blood pressure Weight 75/minute 138/80 86.3 kg Norm Parker APRN.SOYBEAN GROWER 07/05/2024 9:18 AM Signed SUBJECTIVE Jai Luna [...] of Proximal Vein of Left Lower Extremity ([facility]) - 07/21/2022 Pulmonary Embolism and Infarction ([facility]) - 03/02/2022 Pulmonary Embolism ([facility]) - 02/13/2022 Hypokalemia - 02/10/2022 Urinary Retention - [address] ([facility]) - 01/28/2022 Rectal Cancer ([facility]) - 01/27/2022 Rectal Malignant Neoplasm ([facility]) - 05/29/2021 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 Normal [facility] 07-05-2024 [facility] Telephone (INTMWS) JAI LUNA ([id number]) 1950 M Date Time Provider Department 07/05/24 KATY FAUST INTWS During your visit today, we recorded the following information about you: Norm Parker APRN.SOYBEAN GROWER 07/05/2024 9:21 AM Signed Good morning, Chaka is a mutual patient who was seen in the office this morning. He has a deep ulceration to the abdomen at the base of his stoma. Stoma output is normal and color is beefy red. The ulceration is painful. Would Dr. Duong or Rabia like to get him seen [facility] or would they like to get him seen with one of the ostomy nurses [facility] due to the concern of the potential for infection in the area and interference with the stoma. Thank you, Don Carvajal LPN 07/07/2024 8:31 AM Signed Allergies As of Date: 07/05/2024 Noted Allergy Reaction CAT DANDER 02/27/2022 14 - Other: See Comments CLINDAMYCIN 03/28/2021 8 - GI Upset CODEINE 06/20/2007 8 - GI Upset Date Reviewed: 07/05/2024 Reviewed by: Norm Parker APRN.SOYBEAN GROWER - Fully Assessed Reason for Visit: Patient [...] Encounter Status:Closed by NORM PARKER on 07/05/24 [facility] CNOVon 05-31-2024 CNOV Office Visit (INTMWS ) JAI LUNA ([id number]) 1950 M Date Time Provider Department 05/31/24 3:40 PM KATY FAUST INTMWS During your visit today, we recorded the following information about you: Temperature Pulse Respiration Blood pressure 97 degrees 64/minute 16/minute 138/68 Weight 88.2 kg Katy Faust MD 05/31/2024 5:06 PM Signed This note was created using [employer]. Subjective Jai Luna is a 74 year [...] of seeking a second opinion from another telecom specialist if symptoms persist or worsen. # [...] the date of the service which included [id number] patient care, completing clinical documentation, obtaining and/or reviewing separately obtained history, performing a medically appropriate examination, counseling and educating the patient/family/caregi carolann, and ordering medications, tests, or procedures . Katy Faust MD The patient consented to the use of [employer] software for draft documentation of the visit consistent with [facility]?s Notice of Privacy Practices. Katy Faust MD 05/31/2024 5:04 PM Addendum - Contact Dr. Reed to schedule an appointment to discuss worsening symptoms and potential treatment options for lumbar stenosis. - When walkin (more content not included)... Normal [facility] Urine Cultureon 04-27-2024 URC Below infection level. Mixed Gram Positive Organisms Boswell Count 1000-10,000 MIXC Mixed contaminants. Submit a new specimen if indicated. Normal [facility] Comment on above: Performed By: #### M 100.2200 ####[facility] [address] [facility] [place], [place], [address] Abdomen/Pelvis W IV Cont ONL Yon 04-25-2024 Abdomen/Pelvis W IV Cont ONLY [facility] [address] [place], [place] [address] Abdomen/Pelvis W IV Cont ONLY MR#: [id number] Acct: [id number] Name: JAI LUNA Rep #: [id number] : 1950 M 74 From: Leno hardin MD PCP: Dr. Katy Faust MD Status: REG ER Study: Abdomen/Pelvis W IV Cont ONLY Date of Exam: Exam# [id number] Ordering Dr: Tejal Bassett PROCEDURE: ABDOMEN/PELVIS W [...] use of iterative reconstruction technique). Reading Location: [id number] CC: Dr. Katy Faust MD; JANICE Green Windows Server Support Technician: Signed Normal [facility] Absolute lymphocyte countOrd ered By: Tejal Bassett on 04-25-2024 Lymphocytes Auto (Unsp spec) [#/Vol] 1.89 10*3/uL 0.83-4.51 [facility] Absolute neutrophil countOrd ered By: Tejal Bassett on 04-25-2024 Neutrophils (Bld) [#/Vol] 3.2 10*3/uL 2.0-7.7 [facility] Automated lymphocyte count a s percentage of total leukocytesOrdered By: Tejal Bassett on 04-25-2024 Lymphocytes/100 WBC Auto (Unsp spec) 28.7 % 19-41 [facility] BUN/creatinine ratioOrdered By: Tejal Bassett on 04-25-2024 Urea nitrogen/Creatinine [Mass ratio] 17.3 mg/mg 10-20 [facility] Comment on above: Previous reported re sult: 18.5 RATIOEdited by: AUTOINS on 04/25/24:1504 AMENDED REPORT 04/25/24 1504 BUN/CRE previously reported as: 18.5 RATIO Basophil percentageOrdered B y: Tejal Bassett on 04-25-2024 Basophils/100 WBC (Bld) 0.6 % 0-1 [facility] Bilirubin Test strip Ql (U)O rdered By: Tejal Bassett on 04-25-2024 Bilirubin Ql (U) Negative Negative [facility] Bilirubin, totalOrdered By: Tejal Bassett on 04-25-2024 Bilirubin [Mass/Vol] 0.33 mg/dL 0.00-1.30 [facility] Comment on above: Previous reported re sult: 0.36 mg/dLEdited by: AUTOINS on 04/25/24:1504 AMENDED REPORT 04/25/24 1504 T BILI previously reported as: 0.36 mg/dL CBC W/Diff, Automatedon 04-02 Absolute Lymph 1.89 X10 3/uL Normal 0.83-4.51 [facility] Comment on above: Performed By: #### L 500.4050, L100.0100 ####[facility] [address] [place], [address] Absolute Neut 3.2 X10 3/uL Normal 2.0-7.7 [facility] Comment on above: Performed By: #### L 500.4050, L100.0100 ####[facility] [address] [place], [address] Basophils/100 WBC (Bld) 0.6 % Normal 0-1 [facility] Comment on above: Performed By: #### L 500.4050, L100.0100 ####[facility] [address] [place], [address] Eosinophils/100 WBC (Bld) 3.3 % Normal 0-5 [facility] Comment on above: Performed By: #### L 500.4050, L100.0100 ####[facility] [address] [place], [address] Erythrocyte distribution width (RBC) [Ratio] 13.3 % Normal 11.6-14.6 [facility] Comment on above: Performed By: #### L 500.4050, L100.0100 ####[facility] [address] [place], [address] Hematocrit (Bld) [Volume fraction] 42.9 % Normal 40-54 [facility] Comment on above: Performed By: #### L 500.4050, L100.0100 ####[facility] [address] [place], [address] Hemoglobin (Bld) [Mass/Vol] 14.0 g/dL Normal 13.0-16.5 [facility] Comment on above: Performed By: #### L 500.4050, L100.0100 ####[facility] [address] [place], [address] IG% 0.800 Normal 0.0-0.9 [facility] Comment on above: Result Comment: IG% - Immature Granulocytes (promyelocytes, myelocytes and metamyelocytes) > 1% indicates that a LEFT SHIFT is Present. Performed By: #### L 500.4050, L100.0100 ####[facility] [address] [place], [address] Lymphocytes/100 WBC (Bld) 28.7 % Normal 19-41 [facility] Comment on above: Performed By: #### L 500.4050, L100.0100 ####[facility] [address] [place], [address] MCH (RBC) [Entitic mass] 31.0 pg Normal 27.0-32.0 [facility] Comment on above: Performed By: #### L 500.4050, L100.0100 ####[facility] [address] [place], [address] MCHC (RBC) [Mass/Vol] 32.6 g/dL Normal 32-36 [facility] Comment on above: Performed By: #### L 500.4050, L100.0100 ####[facility] [address] [place], [address] MCV (RBC) [Entitic vol] 95.1 fL High 80-94 [facility] Comment on above: Performed By: #### L 500.4050, L100.0100 ####[facility] [address] [place], [address] Monocytes/100 WBC (Bld) 17.6 % High 0-10 [facility] Comment on above: Performed By: #### L 500.4050, L100.0100 ####[facility] [address] [place], [address] Neutrophils/100 WBC (Bld) 49.0 % Normal 47-70 [facility] Comment on above: Performed By: #### L 500.4050, L100.0100 ####[facility] [address] [place], [address] Nucleated RBC (Bld) [#/Vol] 0 10*3/uL Normal 0-5 [facility] Comment on above: Performed By: #### L 500.4050, L100.0100 ####[facility] [address] [place], [address] Platelet mean volume (Bld) [Entitic vol] 9.8 fL Normal 6.2-12.0 [facility] Comment on above: Performed By: #### L 500.4050, L100.0100 ####[facility] [address] [place], [address] Platelets (Bld) [#/Vol] 320 10*3/uL Normal 150-450 [facility] Comment on above: Performed By: #### L 500.4050, L100.0100 ####[facility] [address] [place], [address] RBC (Bld) [#/Vol] 4.51 10*6/uL Low 4.6-6.2 [facility] Comment on above: Performed By: #### L 500.4050, L100.0100 ####[facility] [address] [place], [address] RDW SD 47.1 fl High 35.1-43.9 [facility] Comment on above: Performed By: #### L 500.4050, L100.0100 ####[facility] [address] [place], [address] WBC (Bld) [#/Vol] 6.6 10*3/uL Normal 4.4-11.0 [facility] Comment on above: Performed By: #### L 500.4050, L100.0100 ####[facility] [address] [place], [address] Comprehensive Metabolic Prof ilon 04-25-2024 Calcium [Mass/Vol] 9.1 mg/dL Normal 7.6-11.0 [facility] Comment on above: Performed By: #### L 500.4050, L100.0100 ####[facility] [address] [place], [address] Chloride [Moles/Vol] 106 mmol/L Normal 98-107 [facility] Comment on above: Performed By: #### L 500.4050, L100.0100 ####[facility] [address] [place], [address] CO2 [Moles/Vol] 19.0 mmol/L Low 21.0-32.0 [facility] Comment on above: Performed By: #### L 500.4050, L100.0100 ####[facility] [address] [place], [address] GAP 15 Normal 5-15 [facility] Comment on above: Performed By: #### L 500.4050, L100.0100 ####[facility] [address] [place], [address] Potassium [Moles/Vol] 4.0 mmol/L Normal 3.5-5.1 [facility] Comment on above: Performed By: #### L 500.4050, L100.0100 ####[facility] [address] [place], [address] Sodium [Moles/Vol] 140 mmol/L Normal 136-145 [facility] Comment on above: Performed By: #### L 500.4050, L100.0100 ####[facility] [address] [place], [address] Emergency Department Summary on 04-25-2024 Emergency Department Summary [facility] Medical Records Department [address] [place] [address] Emergency Department Summary 04/25/24 MR#: [id number] Acct: [id number] Name: JAI LUNA Rep #: [id number] : 1950 74 From: Tejal CAMACHO PCP: [...] than usual based on what he eats. [facility] Medical History MRSA (methicillin resistant staph [...] 12/22/16) Essential hypertension Atherosclerotic heart disease of [place] coronary artery without angina pectoris Hypoacusis Dyslipidemia [...] and tender (more content not included)... Normal [facility] Eosinophil percentageOrdered By: Tejal Bassett on 04-25-2024 Eosinophils/100 WBC (Bld) 3.3 % 0-5 [facility] Erythrocyte distribution wid th ratioOrdered By: Tejal Bassett on 04-25-2024 Erythrocyte distribution width (RBC) [Ratio] 13.3 % 11.6-14.6 [facility] Erythrocyte distribution wid th standard deviationOrdered By: Tejal Bassett on 04-25-2024 Erythrocyte distribution width (RBC) [Ratio] 47.1 fl High 35.1-43.9 [facility] Glomerular filtration rate ( GFR) estimation/1.73 sq m using serum, plasma, or whole bOrdered By: Tejal Bassett on 04-25-2024 GFR/1.73 sq M.predicted among non-blacks MDRD (S/P/Bld) [Vol rate/Area] 70 mL/min/{1.73_m2} >60 [facility] Comment on above: mL/min/1.73m2 CKD-EP I Creatinine Equation (2020)Previous reported result: 76 Edited by: RASHIDA on 04/25/24:1504 AMENDED REPORT 04/25/241503 EST GFR previously reported as: 76 mL/min/1.73m2 CKD-EPI Creatinine Equation (2020) Hematocrit Auto (Bld) [Volum e fraction]Ordered By: Tejal Bassett on 04-25-2024 Hematocrit (Bld) [Volume fraction] 42.9 % 40-54 [facility] Hemoglobin measurementOrdere d By: Tejal Bassett on 04-25-2024 Hemoglobin (Bld) [Mass/Vol] 14.0 g/dL 13.0-16.5 [facility] Immature granulocytes/100 WB C Auto (Bld)Ordered By: Tejal Bassett on 04-25-2024 Immature granulocytes/100 WBC (Bld) 0.800 % 0.0-0.9 [facility] Comment on above: IG% - Immature Granu locytes (promyelocytes, myelocytes and metamyelocytes) > 1% indicates that a LEFT SHIFT is Present. Ketones Test strip Ql (U)Ord ered By: Tejal Bassett on 04-25-2024 Ketones Ql (U) Negative Negative [facility] Laboratory - Chemistry and C hemistry - challengeOrdered By: Tejal Bassett on 04-25-2024 AST [Catalytic activity/Vol] 40 U/L High <38 [facility] Comment on above: Previous reported re sult: 38 U/LEdited by: RASHIDA on 04/25/24:1504 AMENDED REPORT 04/25/241503 AST previously reported as: 38 U/L MCV (mean corpuscular volume ) determinationOrdered By: Tejal Bassett on 04-25-2024 MCV (RBC) [Entitic vol] 95.1 fL High 80-94 [facility] Mean corpuscular hemoglobin (MCH) determinationOrdered By: Tejal Bassett on 04-25-2024 MCH (RBC) [Entitic mass] 31.0 pg 27.0-32.0 [facility] Mean corpuscular hemoglobin concentration (MCHC) determinationOrdered By: Tejal Bassett on 04-25-2024 MCHC (RBC) [Mass/Vol] 32.6 g/dL 32-36 [facility] Mean platelet volume determi nationOrdered By: Tejal Bassett on 04-25-2024 Platelet mean volume (Bld) [Entitic vol] 9.8 fL 6.2-12.0 [facility] Microscopic analysis of urin e for red blood cells (RBC)Ordered By: Tejal Bassett on 04-25-2024 Microscopic analysis of urine for red blood cells (RBC) 25-50 SEEN /hpf 0-5 [facility] Monocyte percentageOrdered B y: Tejal Bassett on 04-25-2024 Monocytes/100 WBC (Bld) 17.6 % High 0-10 [facility] Mucus LM Ql (Urine sed)Order ed By: Tejal Bassett on 04-25-2024 Mucus Ql (Urine sed) 0 SEEN /hpf [facility] Neutrophil percentageOrdered By: Tejal Bassett on 04-25-2024 Neutrophils/100 WBC (Bld) 49.0 % 47-70 [facility] Nitrite Test strip Ql (U)Ord ered By: Tejal Bassett on 04-25-2024 Nitrite Ql (U) Negative Negative [facility] Nucleated red blood cell per centageOrdered By: Tejal Bassett on 04-25-2024 Nucleated RBC/100 WBC (Bld) [Ratio] 0 % 0-5 [facility] Platelet countOrdered By: Carey Bassett on 04-25-2024 Platelets (Bld) [#/Vol] 320 10*3/uL 150-450 [facility] Potassium measurementOrdered By: Tejal Bassett on 04-25-2024 Potassium [Moles/Vol] 4.0 mmol/L 3.5-5.1 [facility] Protein Test strip Ql (U)Ord ered By: Tejal Bassett on 04-25-2024 Protein Ql (U) 30 mg/dl High Negative [facility] RBC Auto (Bld) [#/Vol]Ordere d By: Tejal Bassett on 04-25-2024 RBC (Bld) [#/Vol] 4.51 10*6/uL Low 4.6-6.2 [facility] Serum anion gap measurementO rdered By: Tejal Bassett on 04-25-2024 Anion gap [Moles/Vol] 15 mmol/L 5-15 [facility] Serum globulin measurementOr dered By: Tejal Bassett on 04-25-2024 Globulin (S) [Mass/Vol] 3.2 g/dL 2.2-4.2 [facility] Comment on above: Previous reported re sult: 3.3 g/dLEdited by: RASHIDA on 04/25/24:1504 AMENDED REPORT 04/25/24 1504 GLOB previously reported as: 3.3 g/dL Serum glucose measurement (m ass/volume)Ordered By: Tejal Bassett on 04-25-2024 Glucose [Mass/Vol] 89 mg/dL 70-99 [facility] Comment on above: Previous reported re sult: 92 mg/dLEdited by: RASHIDA on 04/25/24:1504 AMENDED REPORT 04/25/24 1504 GLU previously reported as: 92 mg/dL Serum or plasma alanine loya otransferase (ALT) measurementOrdered By: Tejal Bassett on 04-25-2024 ALT [Catalytic activity/Vol] 38 U/L <47 [facility] Comment on above: Previous reported re sult: 36 U/LEdited by: RASHIDA on 04/25/24:1504 AMENDED REPORT 04/25/24 1504 ALT previously reported as: 36 U/L Serum or plasma albumin shae urement (mass/volume)Ordered By: Tejal Bassett on 04-25-2024 Albumin [Mass/Vol] 4.1 g/dL 3.4-4.8 [facility] Serum or plasma albumin/glob ulin mass ratioOrdered By: Tejal Bassett on 04-25-2024 Albumin/Globulin [Mass ratio] 1.3 {ratio} 0.9-2.4 [facility] Comment on above: Previous reported re sult: 1.2 RATIOEdited by: AUTOINS on 04/25/24:1227 AMENDED REPORT 04/25/24 122 A/G previously reported as: 1.2 RATIO Serum or plasma alkaline guru sphatase measurementOrdered By: Tejal Bassett on 04-25-2024 ALP [Catalytic activity/Vol] 92 U/L 40-129 [facility] Comment on above: Previous reported re sult: 96 U/LEdited by: BLAIRS on 04/25/24:1504 AMENDED REPORT 04/25/24 150 ALK P previously reported as: 96 U/L Serum or plasma calcium shae urement (mass/volume)Ordered By: Tejal Bassett on 04-25-2024 Calcium [Mass/Vol] 9.1 mg/dL 7.6-11.0 [facility] Serum or plasma carbon dioxi de measurement (moles/volume)Ordered By: Tejal Bassett on 04-25-2024 CO2 [Moles/Vol] 19.0 mmol/L Low 21.0-32.0 [facility] Serum or plasma chloride orville surement (moles/volume)Ordered By: Tejal Bassett on 04-25-2024 Chloride [Moles/Vol] 106 mmol/L 98-107 [facility] Serum or plasma creatinine m easurement (moles/volume)Ordered By: Tejal Bassett on 04-25-2024 Creatinine [Moles/Vol] 1.1 mg/dL 0.8-1.3 [facility] Comment on above: Previous reported re sult: 1.0 mg/dLEdited by: AUTOINS on 04/25/24:1504 AMENDED REPORT 04/25/24 1504 CREAT,SERUM previously reported as: 1.0 mg/dL Serum or plasma urea nitroge n measurement (mass/volume)Ordered By: Tejal Bassett on 04-25-2024 Urea nitrogen [Mass/Vol] 18 mg/dL 4-19 [facility] Comment on above: Previous reported re sult: 19 mg/dLEdited by: AUTOINS on 04/25/24:1504 AMENDED REPORT 04/25/24 1504 BUN previously reported as: 19 mg/dL Sodium levelOrdered By: Tejal Bassett on 04-25-2024 Sodium [Moles/Vol] 140 mmol/L 136-145 [facility] Squamous epithelial cells de tection in urine sediment by light microscopyOrdered By: Tejal Bassett on 04-25-2024 Epithelial cells.squamous LM Ql (Urine sed) 0-5 SEEN /hpf 0-5 [facility] Total proteinOrdered By: Mary Ellen Bassett on 04-25-2024 Protein [Mass/Vol] 7.3 g/dL 5.9-8.4 [facility] Comment on above: Previous reported re sult: 7.4 g/dLEdited by: RASHIDA on 04/25/24:1504 AMENDED REPORT 04/25/241503 T PROT previously reported as: 7.4 g/dL Urinalysis, Completeon 04-25 EPI,SQUAMOUS 0-5 SEEN Normal 0-5 [facility] Comment on above: Order Comment: KEITH TER SPECIMEN Performed By: #### L 400.0001 #### [facility] [address] [place], [address] RBC 25-50 SEEN Normal 0-[address] [place] [address] Comment on above: Order Comment: KEITH TER SPECIMEN Performed By: #### L 400.0001 #### [facility] [address] [place], [address] BACTERIA 0 SEEN Normal None Seen [facility] Comment on above: Order Comment: KEITH TER SPECIMEN Performed By: #### L 400.0001 #### [facility] [address] [place], [address] Mucus Ql (Urine sed) 0 SEEN Normal [facility] Comment on above: Order Comment: KEITH TER SPECIMEN Performed By: #### L 400.0001 #### [facility] [address] [place], [address] WBC 0 SEEN Normal 0-5 [facility] Comment on above: Order Comment: KEITH TER SPECIMEN Performed By: #### L 400.0001 #### [facility] [place], [address] Urine clarityOrdered By: Mary Ellen Bassett on 04-25-2024 Clarity (U) Sl. Cloudy Clear [facility] Urine color determinationOrd ered By: Tejal Bassett on 04-25-2024 Color (U) Yellow Yellow [facility] Urine cultureOrdered By: Mary Ellen Bassett on 04-25-2024 Bacteria identified Cx Nom (U) Positive Abnormal [facility] Urine glucose detectionOrder ed By: Tejal Bassett on 04-25-2024 Glucose Ql (U) Normal mg/dl Normal [facility] Urine leukocyte esterase det ection by dipstickOrdered By: Tejal Bassett on 04-25-2024 Leukocyte esterase Test strip Ql (U) Negative Negative [facility] Urine pHOrdered By: Tejal marsh on 04-25-2024 pH (U) 5.0 [pH] 5.0 - 8.0 [facility] Urine sediment bacteria coun t by microscopy (number/high power field)Ordered By: Tejal Bassett on 04-25-2024 Bacteria LM.HPF (Urine sed) [#/Area] 0 /[HPF] None Seen [facility] Urine specific gravity measu rementOrdered By: Tejal Bassett on 04-25-2024 Specific gravity (U) [Rel density] 1.025 1.002-1.030 [facility] Urine urobilinogen measureme ntOrdered By: Tejal Bassett on 04-25-2024 Urobilinogen Ql (U) Normal mg/dl Normal [facility] White blood cell (WBC) count Ordered By: Tejal Bassett on 04-25-2024 WBC (Bld) [#/Vol] 6.6 10*3/uL 4.4-11.0 [facility] White blood cell countOrdere d By: Tejal Bassett on 04-25-2024 White blood cell count 0 SEEN /hpf 0-5 [facility] Cerv Spine 2 or 3 Viewson Cerv Spine 2 or 3 Views [facility] Imaging Services [address] [place], [place] [address] Cerv Spine 2 or 3 Views MR#: [id number] Acct: [id number] Name: JAI LUNA Rep #: [id number] : 1950 M 74 From: Toro Sanford PCP: Dr. Katy Faust MD Status: DEP AMB Study: Cerv Spine 2 or 3 Views Date of Exam: 04/21/24 Exam# [id number] Ordering Dr: Zaira De Jesus PROCEDURE: Cervical [...] CC: JANICE Barakat; Dr. Katy Faust MD Windows Server Support Technician: Signed Normal [facility] Orthopedic Visit Reporton Orthopedic Visit Report [facility] [address] [place] [address] OFFICE VISIT Date of Service: 04/21/24 MR#: [id number] Acct: [id number] Name: JAI LUNA Rep #: [id number] : 1950 Provider: Dr. Howard Siddiqui MD Age/Sex: 74/M Location[place] [facility] Status: Signed Intake Vital Signs 01/18/24 05:58 [...] 12/22/16) Essential hypertension Atherosclerotic heart disease of [place] coronary artery without angina pectoris Hypoacusis Dyslipidemia [...] by me, Dr. Howard Siddiqui MD 04/21/24 9878. Part of today???s visit was documented by [...] of Care (more content not included)... Normal [facility] MR IAC W AND WO IV CONTRASTo n 03-27-2024 MR IAC W AND WO IV CONTRAST Interpreted By: Donato John, STUDY: MR IAC W AND WO IV CONTRAST; 03/27/2024 1:40 pm INDICATION: Signs/Symptoms:Yearly vestibular schwannoma surveillance. 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 MACRO: none Signed by: Donato John 03/27/2024 2:22 PM Dictation workstation: [id number] MMODAL Interpreted By: Donato John, STUDY: MR IAC W AND WO IV CONTRAST; 03/27/2024 1:40 pm INDICATION: Signs/Symptoms:Yearly vestibular schwannoma surveillance. 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) COMPARISON: March 2023 ACCESSION NUMBER(S): [id number] ORDERING CLINICIAN: GISELA CAN TECHNIQUE: The brain [...] nerves (Multi) COMPARISON: March 2023 ACCESSION NUMBER(S): [id number] ORDERING CLINICIAN: GISELA CAN TECHNIQUE: The brain [...] Donato John 03/27/2024 2:22 PM Dictation workstation: [id number] [facility] Work Phone: Radiology Study observation (narrative) [facility] Work Phone: MR Internal auditory canal W O and W contrast IVOrdered By: Donato John on 03-27-2024 [facility] Work Phone: Cerv Spine 2 or 3 Viewson Cerv Spine 2 or 3 Views [facility] Radiology [address] [place] [address] Cerv Spine 2 or 3 Views MR#: [id number] Acct: [id number] Name: JAI LUNA Rep #: [id number] : 1950 M 74 From: Reji Godoy MD PCP: Dr. Katy Faust MD Status: DEP AMB Study: Cerv Spine 2 or 3 Views Date of Exam: 03/02/24 Exam# [id number] Ordering Dr: Zaira De Jesus [id number] EXAM: XR CERVICAL SPINE, 2 OR 3 [...] CC: JANICE Barakat; Dr. Katy Faust MD Windows Server Support Technician: Signed Normal [facility] Orthopedic Visit Reporton Orthopedic Visit Report [facility] [address] [place] [address] [place] [address] OFFICE VISIT Date of Service: 03/02/24 MR#: [id number] Acct: [id number] Name: JAI LUNA Rep #: [id number] : 1950 Provider: JANICE Barakat Age/Sex: 74/M Location: [facility] Status: Signed with Addenda ADDENDUM by JANICE [...] 12/22/16) Essential hypertension Atherosclerotic heart disease of [place] coronary artery without angina pectoris Hypoacusis Dyslipidemia [...] Ortho Ex (more content not included)... Normal [facility] Upper Extremity Arterial Diogo dyon 02-25-2024 Upper Extremity Arterial Study [facility] Cardiovascular [place] [address] Upper Extremity Arterial Study 02/25/24 1258 MR#: [id number] Acct: [id number] Name: JAI LUNA Rep #: [id number] : 1950 74 From: Raghu Reynolds MD [...] Date Dictated: 02/25/24 1258 Date Transcribed: 02/28/24954 Windows Server Support Technician: Signed [facility] 02-14-2024 [facility] Telephone (INTMWS) JAI LUNA ([id number]) 1950 M Date Time Provider Department 02/14/24 [...] surgery in December [address]iddiqui [facility]. Advised patient to go to [facility] ER for evaluation. He said has [...] Date Reviewed: 01/04/2024 Reviewed by: Norm Parker APRN.SOYBEAN [employer]OWER - Fully Assessed Reason for Visit: Patient [...] Status:Closed by KATY FAUST on 02/14/24 Normal [facility] Cerv Spine 2 or 3 Viewson Cerv Spine 2 or 3 Views [facility] Radiology [address] [place] [address] Cerv Spine 2 or 3 Views MR#: [id number] Acct: [id number] Name: JAI LUNA Rep #: [id number] : 1950 M 73 From: Jose Mars MD PCP: Dr. Katy Faust MD Status: DEP AMB Study: Cerv Spine 2 or 3 Views Date of Exam: 02/03/24 Exam# [id number] Ordering Dr: Zaira De Jesus [id number] STUDY: X-RAY - CERVICAL SPINE REASON FOR [...] 15:38 EST Reading Location ID and State: [facility] [place] , Service support , CC: JANICE Barakat; Dr. Katy Faust MD Windows Server Support Technician: Signed Normal [facility] Orthopedic Visit Reporton Orthopedic Visit Report [facility] [address] [place] [address] [address] [place] [address] OFFICE VISIT Date of Service: 02/03/24 MR#: [id number] Acct: [id number] Name: JAI LUNA Rep #: [id number] : 1950 Provider: Dr. Howard Siddiqui MD Age/Sex: 73/M Location[place] [facility] Status: Signed Intake Vital Signs 11/10/23 10:35 [...] 12/22/16) Essential hypertension Atherosclerotic heart disease of [place] coronary artery without angina pectoris Hypoacusis Dyslipidemia [...] made by me, Dr. Howard Siddiqui MD 02/03/2478. Part of today???s visit was documented by [...] Ortho Exam (more content not included)... Normal [facility] Basic Metabolic Profile (BMP )on 01-19-2024 BUN/CRE 19.7 RATIO Normal - [facility] Comment on above: Performed By: #### L 500.2500, L100.0500 ####[facility] [address] [place], [address] CA,Total 8.6 mg/dL Normal 8.5-10.1 [facility] Comment on above: Performed By: #### L 500.2500, L100.0500 ####[facility] [address] [place], [address] Chloride [Moles/Vol] 106 mmol/L Normal 98-107 [facility] Comment on above: Performed By: #### L 500.2500, L100.0500 ####[facility] [address] [place], [address] CO2 [Moles/Vol] 23.0 mmol/L Normal 21.0-32.0 [facility] Comment on above: Performed By: #### L 500.2500, L100.0500 ####[facility] [address] [place], [address] Creatinine [Mass/Vol] 1.17 mg/dL Normal 0.70-1.30 [facility] Comment on above: Result Comment: The validity of the calculated GFR GFRAA in patients over 70 years has not been determined. Clinical correlation is essential. Performed By: #### L 500.2500, L100.0500 ####[facility] [address] [place], [address] ECRCL 57.81 ml/min Normal [facility] Comment on above: Performed By: #### L 500.2500, L100.0500 ####[facility] [address] [place], [address] EST GFR - AA 78 mL/min Normal >60 [facility] Comment on above: Result Comment: Afri can [place] GFR Calc Performed By: #### L 500.2500, L100.0500 ####[facility] [address] [place], [address] GAP 7 Normal 5-15 [facility] Comment on above: Performed By: #### L 500.2500, L100.0500 ####[facility] [address] [place], [address] GFR/1.73 sq M.predicted among non-blacks MDRD (S/P/Bld) [Vol rate/Area] 65 mL/min/{1.73_m2} Normal >60 [facility] Comment on above: Result Comment: Non- GFR Calc Performed By: #### L 500.2500, L100.0500 ####[facility] [address] [place], [address] Glucose [Mass/Vol] 151 mg/dL High 74-106 [facility] Comment on above: Result Comment: Fast ing Glucose result greater than or equal to 126 mg/dL suggests DIABETES MELLITUS per A.D.A. criteria. Performed By: #### L 500.2500, L100.0500 ####[facility] [address] [place], [address] Potassium [Moles/Vol] 4.0 mmol/L Normal 3.5-5.1 [facility] Comment on above: Performed By: #### L 500.2500, L100.0500 ####[facility] [address] [place], [address] Sodium [Moles/Vol] 136 mmol/L Normal 136-145 [facility] Comment on above: Performed By: #### L 500.2500, L100.0500 ####[facility] [address] [place], [address] Urea nitrogen [Mass/Vol] 23 mg/dL High 7-18 [facility] Comment on above: Performed By: #### L 500.2500, L100.0500 ####[facility] [address] [place], [address] CBC-Complete Blood Cnt No Di ffon 01-19-2024 Erythrocyte distribution width (RBC) [Ratio] 14.2 % Normal 11.6-14.6 [facility] Comment on above: Performed By: #### L 500.2500, L100.0500 ####[facility] [address] [place], [address] Hematocrit (Bld) [Volume fraction] 39.6 % Low 40-54 [facility] Comment on above: Performed By: #### L 500.2500, L100.0500 ####[facility] [address] [place], [address] Hemoglobin (Bld) [Mass/Vol] 12.8 g/dL Low 13.0-16.5 [facility] Comment on above: Performed By: #### L 500.2500, L100.0500 ####[facility] [address] [place], [address] MCH (RBC) [Entitic mass] 30.4 pg Normal 27.0-32.0 [facility] Comment on above: Performed By: #### L 500.2500, L100.0500 ####[facility] [address] [place], [address] MCHC (RBC) [Mass/Vol] 32.3 g/dL Normal 32-36 [facility] Comment on above: Performed By: #### L 500.2500, L100.0500 ####[facility] [address] [place], [address] MCV (RBC) [Entitic vol] 94.1 fL High 80-94 [facility] Comment on above: Performed By: #### L 500.2500, L100.0500 ####[facility] [address] [place], [address] Platelet mean volume (Bld) [Entitic vol] 10.5 fL Normal 6.2-12.0 [facility] Comment on above: Performed By: #### L 500.2500, L100.0500 ####[facility] [address] [place], [address] Platelets (Bld) [#/Vol] 253 10*3/uL Normal 150-450 [facility] Comment on above: Performed By: #### L 500.2500, L100.0500 ####[facility] [address] [place], [address] RBC (Bld) [#/Vol] 4.21 10*6/uL Low 4.6-6.2 [facility] Comment on above: Performed By: #### L 500.2500, L100.0500 ####[facility] [address] [place], [address] RDW SD 48.7 fl High 35.1-43.9 [facility] Comment on above: Performed By: #### L 500.2500, L100.0500 ####[facility] [address] [place], [address] WBC (Bld) [#/Vol] 11.4 10*3/uL High 4.4-11.0 [facility] Comment on above: Performed By: #### L 500.2500, L100.0500 ####[facility] [address] [place], [address] Cerv Spine 2 or 3 Viewson Cerv Spine 2 or 3 Views [facility] Imaging Services [address] [place] [address] Cerv Spine 2 or 3 Views MR#: [id number] Acct: [id number] Name: JAI LUNA Rep #: [id number] : 1950 M 73 From: Leno hardin MD PCP: Dr. Katy Faust MD Status: ADM RUDDY Study: Cerv Spine 2 or 3 Views Date of Exam: 01/19/24 Exam# [id number] Ordering Dr: Zaira De Jesus [id number] STUDY: X-RAY - CERVICAL SPINE REASON FOR [...] 12:08 EST Reading Location ID and State: [address] [place] [address] , Service support , CC: JANICE Barakat; Dr. Katy Fuast MD Windows Server Support Technician: Signed Normal [facility] Bedside Glucoseon 01-18-2024 FINGERSTICK GLU 86 mg/dL Normal 74-106 [facility] Comment on above: Result Comment: ZENA GEMENT OF PATIENT CARE PER NURSING PROTOCOL Performed By: #### L 500.2500, L100.0100 #### [facility] [address] [place], [address] Cerv Spine 2 or 3 Viewson Cerv Spine 2 or 3 Views [facility] Imaging Services [address] [place] [address] Cerv Spine 2 or 3 Views MR#: [id number] Acct: [id number] Name: JAI LUNA Rep #: [id number] : 1950 M 73 From: Jonathan Kwan PCP: Dr. Katy Faust MD Status: ADM IN Study: Cerv Spine 2 or 3 Views Date of Exam: 01/18/24 Exam# [id number] Ordering Dr: Howard Siddiqui MD [id number] INDICATION: ERAS, ANTERIOR CERVICAL DISC FUSION C5-C6 [...] Howard Siddiqui MD; Dr. Katy Faust MD Windows Server Support Technician: Signed Normal [facility] MR/POSTOP.ANEon 01-18-2024 MR/POSTOP.[facility] Medical Records Department [address] [place] [address] Anesthesia Postop Eval I 01/18/24 1031 MR#: [id number] Acct: [id number] Name: JAI LUNA Rep #: [id number] : 1950 73 From: Carmina Guadarrama PCP: Dr. Katy Faust MD Status:REG SDC Y Race: C Location: [place] [address] Anesthesia: Postop Eval I Current Vital Signs [...] Carmina Briones Signature: Date CC: Signed Normal [facility] MR/NSENEZDR0cj 01-18-2024 [facility] Medical Records Department [address] [place] [address] Anesthesia Postop Eval II 01/18/24 1556 MR#: [id number] Acct: [id number] Name: JAI LUNA Rep #: [id number] : 1950 73 From: Dexter Wheeler MD PCP: Dr. Katy Faust MD Status:ADM RUDDY Y Race: C Location: Anesthesia Postop Eval I Sum Postop Eval Completion status Anesthesia document: Postop Eval 1 completed: Yes Anesthesia Postop Eval I Summary Anesthesia Postop Eval I Summary: Anesthesia Postop Eval I: Assessment Summary Airway patent Yes 01/18/24 10:32 CONSULTING NURSE.GDOTT Spontaneous unlabored Yes 01/18/24 10:32 CONSULTING NURSE.GDOTT respirations Mental status Awake,Calm 01/18/24 10:32 CONSULTING NURSE.GDOTT nausea No 01/18/24 10:32 CONSULTING NURSE.GDOTT Vomiting No 01/18/24 10:32 CONSULTING NURSE.GDOTT Anesthesia Postop Eval I: Fluid Summary Crystalloid volume administer 1,100 01/18/24 10:32 CONSULTING NURSE.GDOTT (ml) Colloids volume administered ( ml) Blood Product volume administered (ml) Total IV fluid infused 1,100 01/18/24 10:32 CONSULTING NURSE.GDOTT Anesthesia Postop Eval I: Summary Notes Anesthesia Complication No 01/18/24 10:32 CONSULTING NURSE.GDOTT Anesthesia Complication Comment: Post-operative progress note Anesthesia: Postop Eval II Evaluation Mental status: Awake and Calm Pain Level: 1 nausea: No Vomiting: No Complications Anesthesia Complication: No 01/18/24 1557 Date Dexter Wheeler MD Cosigner Signature: Date CC: Signed Normal [facility] Operative Reporton 4 Operative Report [facility] Medical Records Department [address] [place] [address] Operative Report 01/18/24 1004 MR#: [id number] Acct: [id number] Name: LUNA,JAI M Rep #: [id number] : 1950 73 From: Howard Siddiqui MD PCP: Dr. Katy Faust MD Status:[facility] Location: [place] [address] Operative Report (Standard) Operative Information Surgery/Procedure Performed: C5-7 anterior cervical discectomy and fusion Surgeon: Howard Siddiqui Date of Procedure: 01/18/24 Procedure Start Time: 08:09 Procedure Stop Time: 10:15 Pre-Operative Diagnosis: C5-7 disc degeneration with stenosis, radiculopathy Post-Operative Diagnosis: Same Select all DRAINS/GRAFTS/IMPLANT S that apply: Drains Drain details: Canvas , Graft Graft details: Structural allograft cortical cancellous strut, DBX and Implanted device Implanted device details: [employer] [place] Elite anterior cervical plate instrumentation Type of Anesthesia: General Estimated Blood Loss: 30 cc Specimen collected: No Description of surgery: Preoperative diagnosis: C5-7 disc degeneration with stenosis, radiculopathy Postoperative diagnosis: Same Name of procedure: C5-7 anterior cervical discectomy and fusion with plate instrumentation - Anterior cervical fusion C5-6, CPT code 05191 - Anterior plate instrumentation C5-7, CPT code 24476/59 - Anterior cervical fusion C6-7, CPT code 18804/51 -C5-6 structural allograft bone with DBX, CPT code 24582 -C6-7 structural allograft bone with DBX, CPT code 15270 Attending surgeon: Howard Siddiqui M.D. Anesthesia: Gen. endotracheal Estimated blood loss: 30 mL Complications: None Instrumentation used: [employer] [place] Elite plate, LASR corticocancellous block Indications: The [...] Disc fragments were removed with the pituitary. [place] pins were placed in C5 and C6 [...] good pullout strength. A 40 mm [employer]tronic [place] Elite plate was then fixed to C5-7 with 16 mm screws. A lateral x-ray was then taken to check the length of the screws. Both AP an (more content not included)... Normal [facility] Orthopedic Visit Reporton Orthopedic Visit Report [facility] [address] [place] [address] [address] [place] [address] OFFICE VISIT Date of Service: 01/11/24 MR#: [id number] Acct: [id number] Name: JAI LUNA Rep #: [id number] : 1950 Provider: Dr. Howard Siddiqui MD Age/Sex: 73/M Location[place] [facility] Status: Signed Intake Vital Signs 11/10/23 10:35 [...] 12/22/16) Essential hypertension Atherosclerotic heart disease of [place] coronary artery without angina pectoris Hypoacusis Dyslipidemia [...] she did (more content not included)... Normal [facility] Hepatitis A AB, Totalon HEPATITIS A,TOT Negative Normal Negative [facility] Comment on above: Result Comment: Comm ent: The HAV total antibody assay detects both IgG and IgM but does not differentiate between them. A negative result suggests susceptibility to infection. A positive result could be due to vaccination, previously resolved infection or active infection. Testing for HAV IgM should be performed if active HAV infection is suspected. [facility] offers profiles that will automatically reflex positive HAV total antibody results to IgM (e.g., panel #[id number] HAV Antibody w/ Rfx). Performed at: [address] [id number] Language Assistant: Will Stockton PhD, Phone: [phone] Performed By: #### L 100.0100, M100.651, L3890.6005, L3890.6300, BTSPAT, L3890.6200, L3100.0300 ####[facility] [address] [place], [place], [address] MRSA/SAID NASAL SCREENon MRSA+SAID SCRN Reason for Exam: PRE-OP MRSA MRSA Negative S. AUREUS S. aureus Negative * This is an amended result. * A prior result that was reported as final has been changed. 01/06/24 1402 by CHELA Previously reported as: POSITIVE Normal [facility] Comment on above: Performed By: #### L 100.0100, M100.651, L3890.6005, L3890.6300, BTSPAT, L3890.6200, L3100.0300 ####[facility] [address] [place], [address] 12 Lead EKGon 01-05-2024 12 Lead EKG [facility] Cardiovascular Services [address] [place] [address] 12 Lead EKG 01/05/24 0654 MR#: [id number] Acct: [id number] Name: JAI LUNA Rep #: [id number] : 1950 73 From: Winter Foy MD Attending Dr: Dr. Howard Siddiqui MD Status: PRE [facility] Ordering Dr: Howard Siddiqui MD Date: 01/05/24 Location: [facility] Sex: M C Admitted: Test Reason : PREOP Blood Pressure : */* mmHG Vent. Rate : 61 BPM Atrial Rate : 61 BPM P-R Int : 162 ms QRS Dur : 120 ms QT Int : 452 ms P-R-T Axes : 21 10 42 degrees QTcB Int : 455 ms Normal sinus rhythm Right bundle branch block Abnormal ECG Confirmed by Winter Foy ([id number]), editor map DEBORAH ELLSWORTH ([id number]) on 01/05/2024 1:10:02 PM Referred By: Howard Siddiqui Confirmed By: Winter Foy 01/05/24 1310 Date Winter Foy MD CC: Dr. Howard Siddiqui MD; Dr. Katy Faust MD Signed Normal [facility] CBC W/Diff, Automatedon 11-0 Absolute Lymph 1.71 X10 3/uL Normal 0.83-4.51 [facility] Comment on above: Performed By: #### L 100.0100, M100.651, L3890.6005, L3890.6300, BTSPAT, L3890.6200, L3100.0300 #### [facility] [address] [place], [address] Absolute Neut 3.9 X10 3/uL Normal 2.0-7.7 [facility] Comment on above: Performed By: #### L 100.0100, M100.651, L3890.6005, L3890.6300, BTSPAT, L3890.6200, L3100.0300 #### [facility] [address] [place], [address] Basophils/100 WBC (Bld) 0.9 % Normal 0-1 [facility] Comment on above: Performed By: #### L 100.0100, M100.651, L3890.6005, L3890.6300, BTSPAT, L3890.6200, L3100.0300 #### [facility] [address] [place], [address] Eosinophils/100 WBC (Bld) 6.4 % High 0-5 [facility] Comment on above: Performed By: #### L 100.0100, M100.651, L3890.6005, L3890.6300, BTSPAT, L3890.6200, L3100.0300 #### [facility] [address] [place], [address] Erythrocyte distribution width (RBC) [Ratio] 14.2 % Normal 11.6-14.6 [facility] Comment on above: Performed By: #### L 100.0100, M100.651, L3890.6005, L3890.6300, BTSPAT, L3890.6200, L3100.0300 #### [facility] [address] [place], [address] Hematocrit (Bld) [Volume fraction] 41.0 % Normal 40-54 [facility] Comment on above: Performed By: #### L 100.0100, M100.651, L3890.6005, L3890.6300, BTSPAT, L3890.6200, L3100.0300 #### [facility] [address] [place], [address] Hemoglobin (Bld) [Mass/Vol] 13.3 g/dL Normal 13.0-16.5 [facility] Comment on above: Performed By: #### L 100.0100, M100.651, L3890.6005, L3890.6300, BTSPAT, L3890.6200, L3100.0300 #### [facility] [address] [place], [address] IG% 0.400 Normal 0.0-0.9 [facility] Comment on above: Result Comment: IG% - Immature Granulocytes (promyelocytes, myelocytes and metamyelocytes) > 1% indicates that a LEFT SHIFT is Present. Performed By: #### L 100.0100, M100.651, L3890.6005, L3890.6300, BTSPAT, L3890.6200, L3100.0300 #### [facility] [address] [place], [address] Lymphocytes/100 WBC (Bld) 24.7 % Normal 19-41 [facility] Comment on above: Performed By: #### L 100.0100, M100.651, L3890.6005, L3890.6300, BTSPAT, L3890.6200, L3100.0300 #### [facility] [address] [place], [address] MCH (RBC) [Entitic mass] 31.2 pg Normal 27.0-32.0 [facility] Comment on above: Performed By: #### L 100.0100, M100.651, L3890.6005, L3890.6300, BTSPAT, L3890.6200, L3100.0300 #### [facility] [address] [place], [address] MCHC (RBC) [Mass/Vol] 32.4 g/dL Normal 32-36 [facility] Comment on above: Performed By: #### L 100.0100, M100.651, L3890.6005, L3890.6300, BTSPAT, L3890.6200, L3100.0300 #### [facility] [address] [place], [address] MCV (RBC) [Entitic vol] 96.2 fL High 80-94 [facility] Comment on above: Performed By: #### L 100.0100, M100.651, L3890.6005, L3890.6300, BTSPAT, L3890.6200, L3100.0300 #### [facility] [address] [place], [address] Monocytes/100 WBC (Bld) 10.6 % High 0-10 [facility] Comment on above: Performed By: #### L 100.0100, M100.651, L3890.6005, L3890.6300, BTSPAT, L3890.6200, L3100.0300 #### [facility] [address] [place], [address] Neutrophils/100 WBC (Bld) 57.0 % Normal 47-70 [facility] Comment on above: Performed By: #### L 100.0100, M100.651, L3890.6005, L3890.6300, BTSPAT, L3890.6200, L3100.0300 #### [facility] [address] [place], [address] Nucleated RBC (Bld) [#/Vol] 0 10*3/uL Normal 0-5 [facility] Comment on above: Performed By: #### L 100.0100, M100.651, L3890.6005, L3890.6300, BTSPAT, L3890.6200, L3100.0300 #### [facility] [address] [place], [address] Platelet mean volume (Bld) [Entitic vol] 10.5 fL Normal 6.2-12.0 [facility] Comment on above: Performed By: #### L 100.0100, M100.651, L3890.6005, L3890.6300, BTSPAT, L3890.6200, L3100.0300 #### [facility] [address] [place], [address] Platelets (Bld) [#/Vol] 231 10*3/uL Normal 150-450 [facility] Comment on above: Performed By: #### L 100.0100, M100.651, L3890.6005, L3890.6300, BTSPAT, L3890.6200, L3100.0300 #### [facility] [address] [place], [address] RBC (Bld) [#/Vol] 4.26 10*6/uL Low 4.6-6.2 [facility] Comment on above: Performed By: #### L 100.0100, M100.651, L3890.6005, L3890.6300, BTSPAT, L3890.6200, L3100.0300 #### [facility] [address] [place], [address] RDW SD 50.4 fl High 35.1-43.9 [facility] Comment on above: Performed By: #### L 100.0100, M100.651, L3890.6005, L3890.6300, BTSPAT, L3890.6200, L3100.0300 #### [facility] [address] [place], [address] WBC (Bld) [#/Vol] 6.9 10*3/uL Normal 4.4-11.0 [facility] Comment on above: Performed By: #### L 100.0100, M100.651, L3890.6005, L3890.6300, BTSPAT, L3890.6200, L3100.0300 #### [facility] [address] [place], [address] HIV - WCHon 01-05-2024 HIV Non-Reactive Normal Nonreactive [facility] Comment on above: Order Comment: Reaso n for Exam: PAT Performed By: #### L 100.0100, M100.651, L3890.6005, L3890.6300, BTSPAT, L3890.6200, L3100.0300 ####[facility] [address] [place], [address] Hepatitis B Surface Antibody on 01-05-2024 HEP B Surf Ab Reactive Normal [facility] Comment on above: Order Comment: Reaso n for Exam: PAT Result Comment: Non Reactive: Inconsistent with immunity less than <10 mIU/mL Reactive: Consistent with immunity greater than or equal to 10 mIU/mL Performed By: #### L 100.0100, M100.651, L3890.6005, L3890.6300, BTSPAT, L3890.6200, L3100.0300 ####[facility] [address] [place], [place], [phone] Hepatitis C Antibodyon 01-04 Hepatitis C AB Non-Reactive Normal Nonreactive [facility] Comment on above: Order Comment: Reaso n for Exam: PAT Result Comment: Non Reactive: < 0.8 Equivocal: >/= 0.8 to < 1.0 Reactive: >/= 1.0 The CDC requires that a reactive/equivocal HCV antibody result be sent out for confirmation. HCV Quant by PCR testing. Performed By: #### L 100.0100, M100.651, L3890.6005, L3890.6300, BTSPAT, L3890.6200, L3100.0300 ####[facility] [address] [place], [address] Magnesiumon 01-05-2024 Magnesium [Mass/Vol] 2.3 mg/dL Normal 1.6-2.6 [facility] Comment on above: Performed By: #### L 501.5200 #### [facility] [address] [place], [address] Type AND Screen - PAT ONLYon 01-05-2024 ABO and Rh group Nom (Bld) Blood group B Rh(D) positive Normal [facility] Comment on above: Order Comment: Surge ry Date: 01/18/24 Reason for Laboratory Test PRE-OP [id number] No N N S ERAS, Anterior Cervical Disc Fusion C5-6 and C6-7 Performed By: #### L 100.0100, M100.651, L3890.6005, L3890.6300, BTSPAT, L3890.6200, L3100.0300 #### [facility] [address] [place], [address] CNOVon 01-04-2024 CNOV Office Visit (INTMWS ) JAI LUNA ([id number]) 1950 M Date Time Provider Department 01/04/24 2:40 PM NORM PARKER INTMWS During your visit today, we recorded the following information about you: Pulse Blood pressure Weight Height 64/minute 136/74 85.9 kg 1.645 m Norm Parker APRN.[employer]BEAN GROWER 01/05/2024 3:29 PM Addendum SUBJECTIVE Jai Luna [...] done on 01/18/[address] Siddiqui at [facility]. History of having anesthesia: Yes. Any [...] recent sickness. No history of CVA or MD. Sees [facility], had a stress test yesterday. [...] Embolism - 09/22/2023 Pvd (Peripheral Vascular Disease) ([facility]) - 09/22/2023 History of Dvt (Deep Vein Thrombosis) - 09/22/2023 Acute Deep Vein Thrombosis (Dvt) of Proximal Vein of Left Lower Extremity ([facility]) - 07/21/2022 Pulmonary Embolism and Infarction ([facility]) - 03/02/2022 Pulmonary Embolism ([facility]) - 02/13/2022 Hypokalemia - 02/10/2022 Urinary Retention - [address] ([facility]) - 01/28/2022 Rectal Cancer ([facility]) - 01/27/2022 Rectal Malignant Neoplasm ([facility]) - 05/29/2021 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 Normal [facility] Office Visiton 07-14-2023 Follow-up visit [id number] Silvio Luna 1950 M Date Provider Department Center 07/14/2023 [id number] None Family History Family Status - Relation Status Age at Mother Father Level of Service:29521 [place] OFFICE/OUTPATIENT NEW HIGH MDM 60 MINUTES Reason for Visit and Comments: New Patient [542] - Evaluation for second opinion for ongoing rectal bleeding since sx, s/p - robotic asst lap LAR w/ intraoperative angiogram w/ diverting loop ileostomy 01/27/[address] Cheung h/o of rectal squamos cell cancer diagnosed in 04/2021, h/o of chemothearpy OTHER [Other] - Pt accompanied by [facility] PATINSon 07-14-2023 PATINS - Recommendation is to identify the source of your rectal bleeding - Follow-up with Urology to evaluate for a fistula connection to the urethra - Further surgical intervention is recommended to be pursued with Dr. Cheung or through the [facility] given the complexity of your case. Further work-up prior to surgery should be performed through the [facility] as any further surgical intervention would be recommended through this institution. [facility] Progress Noteon 07-14-2023 Progress Note HPI: [...] Reports passing urine when ejaculating since surgery. [facility] Progress Note COLORECTAL SURGERY OFFICE VISIT [...] Medical History: Diagnosis Date Rectal cancer (CMS/HCC) ([facility]) S/P triple vessel bypass Past Surgical [...] friable, bleeding mucosa Exam chaperoned by female anesthesiology physician assistant. ASSESSMENT/PLAN: Diagnosis Plan 1. Rectal bleeding [...] further work-up/surgical intervention . Sabrina Muñiz MD [facility] Col[facility] [address], [address] [place], [place] [address] p [phone] f [phone] Normal [facility] Absolute lymphocyte countOrd ered By: Raghu Reynolds on 07-08-2023 Lymphocytes Auto (Unsp spec) [#/Vol] 1.22 10*3/uL 0.83-4.51 [facility] Automated lymphocyte count a s percentage of total leukocytesOrdered By: Raghu Reynolds on 07-08-2023 Lymphocytes/100 WBC Auto (Unsp spec) 21.1 % 19-41 [facility] Basophil percentageOrdered B y: Raghu Reynolds on 07-08-2023 Basophils/100 WBC (Bld) 1.0 % 0-1 [facility] Chloride [Moles/Vol] 115 mmol/L 98-107 [facility] Eosinophils/100 WBC (Bld) 5.2 % 0-5 [facility] Glucose [Mass/Vol] 99 mg/dL 74-106 [facility] Hemoglobin (Bld) [Mass/Vol] 12.9 g/dL 13.0-16.5 [facility] Monocytes/100 WBC (Bld) 11.3 % 0-10 [facility] Neutrophils (Bld) [#/Vol] 3.5 10*3/uL 2.0-7.7 [facility] Neutrophils/100 WBC (Bld) 61.1 % 47-70 [facility] Potassium [Moles/Vol] 3.9 mmol/L 3.5-5.1 [facility] Sodium [Moles/Vol] 142 mmol/L 136-145 [facility] WBC (Bld) [#/Vol] 5.8 10*3/uL 4.4-11.0 [facility] Determination of erythrocyte mean corpuscular volume (MCV)Ordered By: Raghu Reynolds on 07-08-2023 MCV (RBC) [Entitic vol] 98.3 fL 80-94 [facility] Erythrocyte distribution wid th ratioOrdered By: Raghu Reynolds on 07-08-2023 Erythrocyte distribution width (RBC) [Ratio] 14.2 % 11.6-14.6 [facility] Erythrocyte distribution wid th standard deviationOrdered By: Raghu Reynolds on 07-08-2023 Erythrocyte distribution width (RBC) [Entitic vol] 51.8 fL 35.1-43.9 [facility] Hematocrit Auto (Bld) [Volum e fraction]Ordered By: Raghu Reynolds on 07-08-2023 Hematocrit (Bld) [Volume fraction] 40.7 % 40-54 [facility] Immature granulocytes/100 WB C Auto (Bld)Ordered By: Raghu Reynolds on 07-08-2023 Immature granulocytes/100 WBC (Bld) 0.300 % 0.0-0.9 [facility] Comment on above: IG% - Immature Granu locytes (promyelocytes, myelocytes and metamyelocytes) > 1% indicates that a LEFT SHIFT is Present. Laboratory - Chemistry and C hemistry - challengeOrdered By: Raghu Reynolds on 07-08-2023 CO2 [Moles/Vol] 24.0 mmol/L 21.0-32.0 [facility] Urea nitrogen/Creatinine [Mass ratio] 14.4 mg/mg 10-20 [facility] Laboratory - Hematology and Cell countsOrdered By: Raghu Reynolds on 07-08-2023 MCH (RBC) [Entitic mass] 31.2 pg 27.0-32.0 [facility] MCHC (RBC) [Mass/Vol] 31.7 g/dL 32-36 [facility] Nucleated RBC/100 WBC (Bld) [Ratio] 0 % 0-5 [facility] Platelet mean volume (Bld) [Entitic vol] 9.9 fL 6.2-12.0 [facility] Platelets (Bld) [#/Vol] 236 10*3/uL 150-450 [facility] No Panel InformationOrdered By: Raghu Reynolds on 07-08-2023 Estimated Creatinine Clearance Calc 51.03 ml/min [facility] Estimated GFR (MDRD) Amer 68 mL/min >60 [facility] Comment on above: GFR Calc Estimated GFR (MDRD) Non-Af Amer 56 mL/min >60 [facility] Comment on above: Non- GFR Calc RBC Auto (Bld) [#/Vol]Ordere d By: Raghu Reynolds on 07-08-2023 RBC (Bld) [#/Vol] 4.14 10*6/uL 4.6-6.2 [facility] Serum or plasma calcium shae urement (mass/volume)Ordered By: Raghu Reynolds on 07-08-2023 Calcium [Mass/Vol] 8.6 mg/dL 8.5-10.1 [facility] Serum or plasma creatinine m easurement (mass/volume)Ordered By: Raghu Reynolds on 07-08-2023 Creatinine [Mass/Vol] 1.32 mg/dL 0.70-1.30 [facility] Comment on above: The validity of the calculated GFR & GFRAA in patients over 70 years has not been determined. Clinical correlation is essential. Serum or plasma urea nitroge n measurement (mass/volume)Ordered By: Raghu Pottsey on 07-08-2023 Urea nitrogen [Mass/Vol] 19 mg/dL 7-18 [facility] Thin prep Papanicolaou smear with manual screeningOrdered By: Raghu Gail on 07-08-2023 Thin prep Papanicolaou smear with manual screening 3 - [facility] 36on 06-16-2023 36 Spoke with patient scheduled for 07/14/23 @ 1:[address] Muñiz, pt verbalized understanding of appt date/time. Patient verbalized understanding of recommendation. Per Diana at Dr. Cheung office, patient was last seen in 05/20/2022, and will be faxing over notes. [facility] 36on 06-15-[address] Muñiz, please schedule next available appointment. Per Dr. Muñiz if symptoms worsen patient is to contact Dr. Cheung or go to the nearest ED for further evaluation. Per Dr. Muñiz request recent OV with Dr. Cheung for further review. [address] 06-11-[address] Bray office, they will be faxing patient records. [place] [address] Spoke with patient, per patient requesting to schedule appointment with Dr. Muñiz for second opinion. Per patient states he has an ileostomy, states output is good, no issues. Per patient concern is the rectal bleeding that has been going on since his surgery w/ Dr. Cheung at [facility]. Per our sports development officer, we will review with Dr. Muñiz for appointment once we have records. If patient is bleeding profusely and feeling unwell patient should go to ED for further evaluation. Patient verbalized understanding. [place] [address] Patient submitted online appointment request, please call to discuss/schedule. FirstName : Jai LastName : Luna Pronouns : Other (please specify) PronounsOther : Email : [email or web address] Phone : [phone] Birthdate : 1950 12:00:00 AM BestTimeToCallBack : Any AppointmentDate : As soon as possible. PhysicianRequested : Dr. Sabrina Muñiz MD Symptoms : Bleeding 16 months after rectal cancer surgery on January 27, 2022. OptIn : False Normal [facility] MR IAC W AND WO IV CONTRASTo n 03-24-2023 MR IAC W AND WO IV CONTRAST Interpreted By: Toro Newman, STUDY: MR IAC W AND WO IV CONTRAST; 03/24/2023 2:41 pm INDICATION: Signs/Symptoms:acoust ic neuroma. COMPARISON: MRI IAC dated 02/10/2021. ACCESSION NUMBER(S): [id number] ORDERING CLINICIAN: GISELA CAN TECHNIQUE: Standard multiplanar [...] Toro Newman 03/24/2023 3:32 PM Dictation workstation: [id number] [facility] MR Internal auditory canal W O [...] Toro Newman 03/24/2023 3:32 PM Dictation workstation: [id number] MMODAL Interpreted By: Toro Newman, STUDY: MR IAC W AND WO IV CONTRAST; 03/24/2023 2:41 pm INDICATION: Signs/Symptoms:acoust ic neuroma. COMPARISON: MRI IAC dated 02/10/2021. ACCESSION NUMBER(S): [id number] ORDERING CLINICIAN: GISELA CAN TECHNIQUE: Standard multiplanar [...] COMPARISON: MRI IAC dated 02/10/2021. ACCESSION NUMBER(S): [id number] ORDERING CLINICIAN: GISELA CAN TECHNIQUE: Standard multiplanar [...] Toro Newman 03/24/2023 3:32 PM Dictation workstation: [id number] [facility] Work Phone: Radiology Study observation (narrative) [facility] Work Phone: MR Internal auditory canal W O and W contrast IVOrdered By: Toro Newman on 03-24-2023 [facility] Work Phone: SURGICAL PATHOLOGYon 023 Case Report Surgical Pathology Report Case: [id number] Authorizing Provider: Justin William MD Collected: 12/03/2022 11:49 AM Ordering Location: [facility] Radiology Received: 12/03/2022 01:29 PM Pathologist: Alice Young MD Specimen: DEVICE [facility] Clinical History IVC filter [facility] FINAL DIAGNOSIS A. Inferior vena cava, hardware removal: - Vascular filter (gross examination only). CT/AKA 12/04/22 12:56 PM [facility] Gross Description A. DEVICE Received in [...] 2022 10:37 AM Gross examination performed at [facility], [facility] [address] Performing Lab Diagnostic interpretation performed at [facility], [facility] [place] [address] CLIA# [id number] Goat Herder: Torey Walker M.D. [facility] BRIEF OP NOTon 12-03-2022 BRIEF OP NOT HNO ID: [id number] Author: Justin William MD Service: ? Author Type: Physician Type: Brief Op Note Filed: 12/03/2022 11:46 AM Note Text: BRIEF OPERATIVE / PROCEDURE NOTE LOG ID: [id number] SURGERY/PROCEDURE DATE: 12/03/2022 INCISION/PROCEDURE START TIME: 11:24 AM INCISION CLOSE/PROCEDURE END TIME: 11:37 AM SURGEON(S)/PROCEDURAL IST(S) AND [place] STILL OPERATOR(S): Surgeon(s) and Role: * Justin William MD [...] DATE: December 03, 2022 TIME: 11:45 AM [facility] HISTORY PHYSICALon HISTORY PHYSICAL HNO ID: [id number] Author: Justin William MD Service: ? Author [...] Coronary atherosclerosis of unspecified type of vessel, bill moore's slough or graft Coronary artery disease Diverticulosis of [...] PROSTATE SURGERY HX STRABISMUS RECESSION/RESCJ [facility] [place]ab[place] surgery TONSILLECTOMY HX TONSILLECTOMY PRIMARY/SECONDARY Tonsillectomy [...] mouth daily at bedtime. For cholesterol per [facility]. coenzyme Q10 (COENZYME Q-10) 100 [...] DATE: December 03, 2022 TIME: 11:15 AM [facility] IR INFERIOR CAVA VENOGRAMon 12-03-2022 IR [...] was advanced. Retrieval sheath size(s): 11 F [employer] retrieval sheath The filter was captured, collapsed into the sheath, and removed in its entirety. Filter capture technique: Standard technique, employing the loop snare included in the filter retrieval kit Post-retrieval venography Post-retrieval venography of the IVC was performed. IVC patency post: Patent Additional findings: None Additional Details Additional description of proced (more content not included)... Normal [facility] IR INFERIOR CAVA VENOGRAM (A V,FV,CHRISTIAN,MM,UN)on 12-03-2022 [facility] PT panel Coag (PPP)on 2022 INR Coag (PPP) [Relative time] 1.0 {INR} Normal 0.9-1.3 [facility] Comment on above: Order Comment: Speci men Type: BLOOD SPECIMEN Ordering Facility: [facility] Address: [address] [place] [address] [place] [address] Result Comment: Paulina min K Antagonist (VKA) Therapeutic Range: INR 2 to 3 (Target INR of 2.5) Note: For patients treated with VKA drugs, such as warfarin, the [employer] 2012 Guideline recommends [...] 2012, 141:7S-47S Jose E SOLIS et al. [facility] 2017, 70: 252-289 Performed By: #### 3 4528-0 #### [facility] CLIA [id number] [address] STATES OF [facility] PT Coag (PPP) [Time] 10.9 s Normal 9.7-13.0 [facility] Comment on above: Order Comment: Howard pollard Type: BLOOD SPECIMEN Ordering Facility: [facility] Address: [address] [place] [address] Result Comment: [facility] checked for clot. Performed By: #### 3 4528-0 #### [facility] CLIA [id number] [address] [place] INR Coag (PPP) [Relative time] 1.0 {INR} 0.9 - 1.3 [facility] PT Coag (PPP) [Time] 10.9 s 9.7 - 1 3.0 sec [facility] SURGICAL PATHOLOGYon 023 CASE REPORT Normal [facility] Comment on above: Order Comment: Howard pollard Type: TISSUE SPECIMEN Ordering Facility: [facility] Address: [address] [place] [address] Result Comment: Surg ical Pathology Report Case: [id number] Authorizing Provider: Justin William MD Collected: 12/03/2022 11:49 AM Ordering Location: [facility] Radiology Received: 12/03/2022 01:29 PM Pathologist: Alice Young MD Specimen: DEVICE Performed By: #### S #### [facility] CLIA [id number] [address] [place] [address] [place] CLINICAL HISTORY IVC filter Normal [facility] Comment on above: Order Comment: Speci men Type: TISSUE SPECIMEN Ordering Facility: [facility] Address: [address] [place] [address] Performed By: #### S #### [facility] CLIA [id number] [address] [place] [address] [place] FINAL DIAGNOSIS Normal [facility] Comment on above: Order Comment: Speci men Type: TISSUE SPECIMEN Ordering Facility: [facility] Address: [address] [place] [address] Result Comment: A. I nferior vena cava, hardware removal: - Vascular filter (gross examination only). CT/AKA 12/04/22 12:56 PM Performed By: #### S #### [facility] CLIA [id number] [address] [place] [address] [place] FINAL PERFORMING LAB Normal [facility] Comment on above: Order Comment: Speci men Type: TISSUE SPECIMEN Ordering Facility: [facility] Address: [address] [place] [address] Result Comment: Diag nostic interpretation performed at [facility], [address] [place] [address] CLIA# [id number] Goat Herder: Torey Walker M.D. Performed By: #### S #### [facility] CLIA [id number] [address] [place] [address] [place] GROSS DESCRIPTION A. DEVICE Normal [facility] Comment on above: Order Comment: Speci men Type: TISSUE SPECIMEN Ordering Facility: [facility] Address: [address] [place] [address] Result Comment: Rece ived in formalin, labeled [...] 2022 10:37 AM Gross examination performed at [facility], [address] [place] [address], [place] [address] Performed By: #### S #### [facility] CLIA [id number] [address] [place] [address] [id number] Ayala 11-27-2022 BRENDAN Telephone (MEXR) JAI LUNA ([id number]) 1950 M Date Time Provider Department 11/27/22 REBECCA YEH During your visit today, we recorded the following information about you: Rebecca Yeh RN 11/27/2022 2:47 PM Signed You are scheduled for a IVC Filter Removal, On 12/03/2022. You are to arrive at 0900 am for a 1030 procedure time and Report to [facility]: Entrance A, Elevators to first floor, Ambulatory [...] 1.5 or less for day of procedure. Manager Transition/Transportation : How will you be arriving for your procedure? Private car. You will need a responsible adult to accompany you to and from the procedure. Your stake driver is required to stay with you until you are taken into the procedure room. Please call with any questions [phone] opt 2 to speak with the Radiology Nurses Allergies As of Date: 11/27/2022 Noted Allergy Reaction CAT DANDER 02/27/2022 14 - Other: See Comments CLINDAMYCIN 03/28/2021 8 - GI Upset CODEINE 06/20/2007 8 - GI Upset Date Reviewed: 11/03/2022 Reviewed by: Maddison Kohler RN - Fully Assessed Reason for Visit: Radiology Pre Procedure Instructions [2536] Prescriptions as of 11/27/2022 - warfarin (COUMADIN) [...] Encounter Status:Closed by REBECCA YEH on 11/27/22 [facility] HBV surface Ab Ql (S)on 04-30 HBV surface Ab Qn (S) >=12.0 0 mIU/mL [facility] HEP B SURF ABon 05-20-2022 HBV surface Ab Ql (S) Positive Positive [facility] HEP B SURF AG SCRNon 023 HBV surface Ag Ql (S) Negative Negative [facility] XR COLON SINGLE CONTRASTon 0 05-20-2022 [facility] POTASSIUM BLDon 04-07-2022 Potassium [Moles/Vol] 5.3 mmol/L High 3.7 - 5.1 mmol/L [facility] CBC panel Auto (Bld)on 04-06 Erythrocyte distribution width (RBC) [Ratio] 17.0 % High 11.5 - 15.0 % [facility] Hematocrit (Bld) [Volume fraction] 43.2 % 39.0 - 51.0 % [facility] Hemoglobin (Bld) [Mass/Vol] 13.3 g/dL 13.0 - 17.0 g/dL [facility] MCH (RBC) [Entitic mass] 31.4 pg 26. 0 - 34.0 pg [facility] MCHC (RBC) [Mass/Vol] 30.8 g/dL 30.5 - 36.0 g/dL [facility] MCV (RBC) [Entitic vol] 101.9 fL High 80.0 - 100.0 fL [facility] Nucleated RBC (Bld) [#/Vol] <0.01 k/uL [facility] Platelet mean volume (Bld) [Entitic vol] 10.0 fL 9.0 - 12.7 fL [facility] Platelets (Bld) [#/Vol] 478 10*3/uL High 150 - 400 k/uL [facility] RBC (Bld) [#/Vol] 4.24 10*6/uL 4.20 - 6.0 0 m/uL [facility] WBC (Bld) [#/Vol] 8.48 10*3/uL 3.70 - 11. 00 k/uL [facility] Basic metabolic 2000 panelon 03-19-2022 Anion gap [Moles/Vol] 14 mmol/L 9 - 18 mmol/L [facility] Calcium [Mass/Vol] 9.2 mg/dL 8.5 - 10. 2 mg/dL [facility] Chloride [Moles/Vol] 104 mmol/L 97 - 10 5 mmol/L [facility] CO2 [Moles/Vol] 20 mmol/L Low 22 - 30 mmol/L [facility] Creatinine [Mass/Vol] 0.75 mg/dL 0.73 - 1.22 mg/dL [facility] Estimated Glomerular Filtration Rate 96 mL/min/1.73m >=60 mL/min/1.73m [facility] Glucose [Mass/Vol] 92 mg/dL 74 - 99 mg/dL [facility] Potassium [Moles/Vol] 4.3 mmol/L 3.7 - 5.1 mmol/L [facility] Sodium [Moles/Vol] 138 mmol/L 136 - 144 mmol/L [facility] Urea nitrogen [Mass/Vol] 17 mg/dL 9 - 24 mg/d L [facility] CBC panel Auto (Bld)on 03-18 Erythrocyte distribution width (RBC) [Ratio] 19.2 % High 11.5 - 15.0 % [facility] Hematocrit (Bld) [Volume fraction] 34.2 % Low 39.0 - 51.0 % [facility] Hemoglobin (Bld) [Mass/Vol] 10.2 g/dL Low 13.0 - 17.0 g/dL [facility] MCH (RBC) [Entitic mass] 31.1 pg 26. 0 - 34.0 pg [facility] MCHC (RBC) [Mass/Vol] 29.8 g/dL Low 30.5 - 36.0 g/dL [facility] MCV (RBC) [Entitic vol] 104.3 fL High 80.0 - 100.0 fL [facility] Nucleated RBC (Bld) [#/Vol] <0.01 k/uL [facility] Platelet mean volume (Bld) [Entitic vol] 9.6 fL 9.0 - 12.7 fL [facility] Platelets (Bld) [#/Vol] 487 10*3/uL High 150 - 400 k/uL [facility] RBC (Bld) [#/Vol] 3.28 10*6/uL Low 4.20 - 6.0 0 m/uL [facility] WBC (Bld) [#/Vol] 7.81 10*3/uL 3.70 - 11. 00 k/uL [facility] Influenza virus A and B and SARS-CoV-2 (COVID-19) Ag panel - Upper respiratory specimOrdered By: Dr. Avery on 03-02-2022 SARS-CoV-2 (COVID-19) RNA RODGER+probe Ql (Resp) [facility] Absolute lymphocyte countOrd ered By: ED PROVIDER on 03-01-2022 Lymphocytes Auto (Unsp spec) [#/Vol] 1.14 10*3/uL 0.83-4.51 [facility] Basophil percentageOrdered B y: ED PROVIDER on 03-01-2022 Basophils/100 WBC (Bld) 0.5 % 0-1 [facility] Chloride [Moles/Vol] 107 mmol/L 98-107 [facility] Eosinophils/100 WBC (Bld) 1.6 % 0-5 [facility] Glucose [Mass/Vol] 125 mg/dL 74-106 [facility] Comment on above: Fasting Glucose resu lt from 100 to 125 mg/dL suggests IMPAIRED HOMEOSTASIS per A.D.A. criteria. Neutrophils (Bld) [#/Vol] 8.5 10*3/uL 2.0-7.7 [facility] Neutrophils/100 WBC (Bld) 75.2 % 47-70 [facility] Potassium [Moles/Vol] 3.8 mmol/L 3.5-5.1 [facility] Comment on above: Slight Hemolysis, Re sult may be falsely increased. Sodium [Moles/Vol] 138 mmol/L 136-145 [facility] WBC (Bld) [#/Vol] 11.3 10*3/uL 4.4-11.0 [facility] Basophil percentageOrdered B y: Dr. Turpin on 03-01-2022 Bilirubin [Mass/Vol] 1.00 mg/dL 0.20-1.00 [facility] Comment on above: For patients on eltr ombopag therapy, use of Dimension [place] TBIL is not recommended. Protein [Mass/Vol] 6.9 g/dL 6.4-8.2 [facility] Blood erythrocytes count (nu mber/volume)Ordered By: ED PROVIDER on 03-01-2022 RBC (Bld) [#/Vol] 3.75 10*6/uL 4.6-6.2 [facility] Blood hemoglobin measurement (mass/volume)Ordered By: ED PROVIDER on 03-01-2022 Hemoglobin (Bld) [Mass/Vol] 11.3 g/dL 13.0-16.5 [facility] Blood lymphocytes/100 leukoc ytesOrdered By: ED PROVIDER on 03-01-2022 Lymphocytes/100 WBC (Bld) 10.1 % 19-41 [facility] Blood monocytes/100 leukocyt esOrdered By: ED PROVIDER on 03-01-2022 Monocytes/100 WBC (Bld) 10.7 % 0-10 [facility] Blood platelet mean volumeOr dered By: ED PROVIDER on 03-01-2022 Platelet mean volume (Bld) [Entitic vol] 9.6 fL 6.2-12.0 [facility] Determination of erythrocyte mean corpuscular volume (MCV)Ordered By: ED PROVIDER on 03-01-2022 MCV (RBC) [Entitic vol] 95.5 fL 80-94 [facility] Direct bilirubinOrdered By: Dr. Turpin on 03-01-2022 Bilirubin.direct [Mass/Vol] 0.28 mg/dL 0.00-0.30 [facility] Hematocrit Auto (Bld) [Volum e fraction]Ordered By: ED PROVIDER on 03-01-2022 Hematocrit (Bld) [Volume fraction] 35.8 % 40-54 [facility] INR in Blood by Coagulation assayOrdered By: Dr. Turpin on 03-01-2022 INR Coag (Bld) [Relative time] 1.3 {INR} [facility] - Chemistry and C hemistry - challengeOrdered By: Dr. Turpin on 03-01-2022 ALP [Catalytic activity/Vol] 109 U/L 45-117 [facility] ALT [Catalytic activity/Vol] 46 U/L 16-61 [facility] Globulin (S) [Mass/Vol] 3.9 g/dL 2.2-4.2 [facility] - Chemistry and C hemistry - challengeOrdered By: ED PROVIDER on 03-01-2022 CO2 [Moles/Vol] 25.0 mmol/L 21.0-32.0 [facility] Urea nitrogen/Creatinine [Mass ratio] 18.0 mg/mg 10-20 [facility] - CoagulationOrde red By: Dr. Turpin on 03-01-2022 aPTT Coag (Bld) [Time] 30.2 s 24.1-36.2 [facility] PT Coag (PPP) [Time] 15.6 s 11.7-14.9 [facility] - Hematology and Cell countsOrdered By: ED PROVIDER on 03-01-2022 Erythrocyte distribution width (RBC) [Entitic vol] 60.0 fL 35.1-43.9 [facility] Erythrocyte distribution width (RBC) [Ratio] 17.5 % 11.6-14.6 [facility] Immature granulocytes/100 WBC (Bld) 1.900 % 0.0-0.9 [facility] Comment on above: IG% - Immature Granu locytes (promyelocytes, myelocytes and metamyelocytes) > 1% indicates that a LEFT SHIFT is Present. MCH (RBC) [Entitic mass] 30.1 pg 27.0-32.0 [facility] Nucleated RBC/100 WBC (Bld) [Ratio] 0 % 0-5 [facility] MCHC Auto (RBC) [Mass/Vol]Or dered By: ED PROVIDER on 03-01-2022 MCHC (RBC) [Mass/Vol] 31.6 g/dL 32-36 [facility] No Panel InformationOrdered By: ED PROVIDER on 03-01-2022 Estimated Creatinine Clearance Calc 63.43 ml/min [facility] Estimated GFR (MDRD) Amer 101 mL/min >60 [facility] Comment on above: GFR Calc Estimated GFR (MDRD) Non-Af Amer 83 mL/min >60 [facility] Comment on above: Non- GFR Calc Platelets bldOrdered By: ED PROVIDER on 03-01-2022 Platelets (Bld) [#/Vol] 398 10*3/uL 150-450 [facility] Serum or plasma albumin shae urement (mass/volume)Ordered By: Dr. Turpin on 03-01-2022 Albumin [Mass/Vol] 3.0 g/dL 3.2-5.0 [facility] Serum or plasma calcium shae urement (mass/volume)Ordered By: ED PROVIDER on 03-01-2022 Calcium [Mass/Vol] 8.1 mg/dL 8.5-10.1 [facility] Serum or plasma creatinine m easurement (mass/volume)Ordered By: ED PROVIDER on 03-01-2022 Creatinine [Mass/Vol] 0.95 mg/dL 0.70-1.30 [facility] Comment on above: The validity of the calculated GFR & GFRAA in patients over 70 years has not been determined. Clinical correlation is essential. Serum or plasma urea nitroge n measurement (mass/volume)Ordered By: ED PROVIDER on 03-01-2022 Urea nitrogen [Mass/Vol] 17 mg/dL 7-18 [facility] Thin prep Papanicolaou smear with manual screeningOrdered By: Dr. Turpin on 03-01-2022 Thin prep Papanicolaou smear with manual screening 67 U/L 15-37 [facility] Comment on above: Slight Hemolysis, Re sult may be falsely increased. Thin prep Papanicolaou smear with manual screeningOrdered By: ED PROVIDER on 03-01-2022 Thin prep Papanicolaou smear with manual screening 6 5-15 [facility] Absolute lymphocyte countOrd ered By: Dr. Villafana on 02-27-2022 Lymphocytes Auto (Unsp spec) [#/Vol] 1.26 10*3/uL 0.83-4.51 [facility] Basophil percentageOrdered B y: Dr. Villafana on 02-27-2022 Basophils/100 WBC (Bld) 0.7 % 0-1 [facility] Chloride [Moles/Vol] 106 mmol/L 98-107 [facility] Eosinophils/100 WBC (Bld) 3.2 % 0-5 [facility] Glucose [Mass/Vol] 104 mg/dL 74-106 [facility] Comment on above: Fasting Glucose resu lt from 100 to 125 mg/dL suggests IMPAIRED HOMEOSTASIS per A.D.A. criteria. Neutrophils (Bld) [#/Vol] 7.2 10*3/uL 2.0-7.7 [facility] Neutrophils/100 WBC (Bld) 65.8 % 47-70 [facility] Potassium [Moles/Vol] 3.5 mmol/L 3.5-5.1 [facility] Sodium [Moles/Vol] 137 mmol/L 136-145 [facility] WBC (Bld) [#/Vol] 10.9 10*3/uL 4.4-11.0 [facility] Blood erythrocytes count (nu mber/volume)Ordered By: Dr. Villafana on 02-27-2022 RBC (Bld) [#/Vol] 3.21 10*6/uL 4.6-6.2 [facility] Blood hemoglobin measurement (mass/volume)Ordered By: Dr. Villafana on 02-27-2022 Hemoglobin (Bld) [Mass/Vol] 9.6 g/dL 13.0-16.5 [facility] Blood lymphocytes/100 leukoc ytesOrdered By: Dr. Villafana on 02-27-2022 Lymphocytes/100 WBC (Bld) 11.5 % 19-41 [facility] Blood manual differential co mment interpretation (narrative result)Ordered By: Dr. Villafana on 02-27-2022 Manual differential comment Glenn (Bld) [Interp] SCANNED [facility] Blood monocytes/100 leukocyt esOrdered By: Dr. Villafana on 02-27-2022 Monocytes/100 WBC (Bld) 14.3 % 0-10 [facility] Blood platelet mean volumeOr dered By: Dr. Villafana on 02-27-2022 Platelet mean volume (Bld) [Entitic vol] 9.3 fL 6.2-12.0 [facility] Determination of erythrocyte mean corpuscular volume (MCV)Ordered By: Dr. Villafana on 02-27-2022 MCV (RBC) [Entitic vol] 95.6 fL 80-94 [facility] Hematocrit Auto (Bld) [Volum e fraction]Ordered By: Dr. Villafana on 02-27-2022 Hematocrit (Bld) [Volume fraction] 30.7 % 40-54 [facility] - Chemistry and C hemistry - challengeOrdered By: Dr. Villafana on 02-27-2022 CO2 [Moles/Vol] 25.0 mmol/L 21.0-32.0 [facility] Urea nitrogen/Creatinine [Mass ratio] 23.0 mg/mg 10-20 [facility] - Hematology and Cell countsOrdered By: Dr. Villafana on 02-27-2022 Erythrocyte distribution width (RBC) [Entitic vol] 59.3 fL 35.1-43.9 [facility] Erythrocyte distribution width (RBC) [Ratio] 17.0 % 11.6-14.6 [facility] Immature granulocytes/100 WBC (Bld) 4.500 % 0.0-0.9 [facility] Comment on above: IG% - Immature Granu locytes (promyelocytes, myelocytes and metamyelocytes) > 1% indicates that a LEFT SHIFT is Present. MCH (RBC) [Entitic mass] 29.9 pg 27.0-32.0 [facility] Nucleated RBC/100 WBC (Bld) [Ratio] 0 % 0-5 [facility] MCHC Auto (RBC) [Mass/Vol]Or dered By: Dr. Villafana on 02-27-2022 MCHC (RBC) [Mass/Vol] 31.3 g/dL 32-36 [facility] No Panel InformationOrdered By: Dr. Villafana on 02-27-2022 Estimated Creatinine Clearance Calc 60.26 ml/min [facility] Estimated GFR (MDRD) Amer 144 mL/min >60 [facility] Comment on above: GFR Calc Estimated GFR (MDRD) Non-Af Amer 119 mL/min >60 [facility] Comment on above: Non- GFR Calc Platelets bldOrdered By: Dr. Villafana on 02-27-2022 Platelets (Bld) [#/Vol] 369 10*3/uL 150-450 [facility] Serum or plasma calcium shae urement (mass/volume)Ordered By: Dr. Villafana on 02-27-2022 Calcium [Mass/Vol] 7.7 mg/dL 8.5-10.1 [facility] Serum or plasma creatinine m easurement (mass/volume)Ordered By: Dr. Villafana on 02-27-2022 Creatinine [Mass/Vol] 0.70 mg/dL 0.70-1.30 [facility] Comment on above: The validity of the calculated GFR & GFRAA in patients over 70 years has not been determined. Clinical correlation is essential. Serum or plasma urea nitroge n measurement (mass/volume)Ordered By: Dr. Villafana on 02-27-2022 Urea nitrogen [Mass/Vol] 16 mg/dL 7-18 [facility] Thin prep Papanicolaou smear with manual screeningOrdered By: Dr. Villafana on 02-27-2022 Thin prep Papanicolaou smear with manual screening 6 5-15 [facility] - Microbiology an d Antimicrobial susceptibilityOrdered By: Dr. Salazar on 02-06-2022 Bacteria identified Cx Nom (Bld) No growth in 5 days. [facility] Absolute lymphocyte countOrd ered By: Dr. Salazar on 02-01-2022 Lymphocytes Auto (Unsp spec) [#/Vol] 3.22 10*3/uL 0.83-4.51 [facility] Basophil percentageOrdered B y: Dr. Salazar on 02-01-2022 Basophil percentage 0 SEEN /hpf 0-5 [facility] Basophils/100 WBC (Bld) 0.5 % 0-1 [facility] Bilirubin [Mass/Vol] 0.70 mg/dL 0.20-1.00 [facility] Comment on above: For patients on eltr ombopag therapy, use of Dimension [place] TBIL is not recommended. Chloride [Moles/Vol] 104 mmol/L 98-107 [facility] Eosinophils/100 WBC (Bld) 3.3 % 0-5 [facility] Glucose [Mass/Vol] 261 mg/dL 74-106 [facility] Comment on above: Glucose result great er than or equal to 200 mg/dLsuggests DIABETES MELLITUS per A.D.A. criteria. Lactate [Moles/Vol] 8.7 mmol/L 0.4-2.0 [facility] Neutrophils (Bld) [#/Vol] 5.9 10*3/uL 2.0-7.7 [facility] Neutrophils/100 WBC (Bld) 53.2 % 47-70 [facility] Potassium [Moles/Vol] 3.4 mmol/L 3.5-5.1 [facility] Protein [Mass/Vol] 5.4 g/dL 6.4-8.2 [facility] Sodium [Moles/Vol] 136 mmol/L 136-145 [facility] WBC (Bld) [#/Vol] 11.1 10*3/uL 4.4-11.0 [facility] Bilirubin Test strip Ql (U)O rdered By: Dr. Salazar on 02-01-2022 Bilirubin Ql (U) Negative Negative [facility] Blood erythrocytes count (nu mber/volume)Ordered By: Dr. Salazar on 02-01-2022 RBC (Bld) [#/Vol] 3.26 10*6/uL 4.6-6.2 [facility] Blood hemoglobin measurement (mass/volume)Ordered By: Dr. Salazar on 02-01-2022 Hemoglobin (Bld) [Mass/Vol] 10.6 g/dL 13.0-16.5 [facility] Blood lymphocytes/100 leukoc ytesOrdered By: Dr. Salazar on 02-01-2022 Lymphocytes/100 WBC (Bld) 29.1 % 19-41 [facility] Blood monocytes/100 leukocyt esOrdered By: Dr. Salazar on 02-01-2022 Monocytes/100 WBC (Bld) 9.7 % 0-10 [facility] Blood platelet mean volumeOr dered By: Dr. Salazar on 02-01-2022 Platelet mean volume (Bld) [Entitic vol] 10.4 fL 6.2-12.0 [facility] COVID-19 virus antigen assay Ordered By: Dr. Salazar on 02-01-2022 SARS-CoV-2 (COVID-19) Ag IA.rapid Ql (Resp) [facility] Determination of erythrocyte mean corpuscular volume (MCV)Ordered By: Dr. Salazar on 02-01-2022 MCV (RBC) [Entitic vol] 100.9 fL 80-94 [facility] Direct bilirubinOrdered By: Dr. Salazar on 02-01-2022 Bilirubin.direct [Mass/Vol] 0.17 mg/dL 0.00-0.30 [facility] Hematocrit Auto (Bld) [Volum e fraction]Ordered By: Dr. Salazar on 02-01-2022 Hematocrit (Bld) [Volume fraction] 32.9 % 40-54 [facility] INR in Blood by Coagulation assayOrdered By: Dr. Salazar on 02-01-2022 INR Coag (Bld) [Relative time] 1.3 {INR} [facility] Ketones Test strip Ql (U)Ord ered By: Dr. Salazar on 02-01-2022 Ketones Ql (U) Negative Negative [facility] - Chemistry and C hemistry - challengeOrdered By: Dr. Salazar on 02-01-2022 ALP [Catalytic activity/Vol] 58 U/L 45-117 [facility] ALT [Catalytic activity/Vol] 20 U/L 16-61 [facility] CO2 [Moles/Vol] 18.0 mmol/L 21.0-32.0 [facility] Globulin (S) [Mass/Vol] 3.0 g/dL 2.2-4.2 [facility] Lipase [Catalytic activity/Vol] 116 U/L 73-393 [facility] Urea nitrogen/Creatinine [Mass ratio] 13.7 mg/mg 10-20 [facility] - CoagulationOrde red By: Dr. Salazar on 02-01-2022 aPTT Coag (Bld) [Time] 23.8 s 24.1-36.2 [facility] PT Coag (PPP) [Time] 15.9 s 11.7-14.9 [facility] - Hematology and Cell countsOrdered By: Dr. Salazar on 02-01-2022 Erythrocyte distribution width (RBC) [Entitic vol] 47.9 fL 35.1-43.9 [facility] Erythrocyte distribution width (RBC) [Ratio] 12.9 % 11.6-14.6 [facility] Immature granulocytes/100 WBC (Bld) 4.200 % 0.0-0.9 [facility] Comment on above: IG% - Immature Granu locytes (promyelocytes, myelocytes and metamyelocytes) > 1% indicates that a LEFT SHIFT is Present. MCH (RBC) [Entitic mass] 32.5 pg 27.0-32.0 [facility] Nucleated RBC/100 WBC (Bld) [Ratio] 0 % 0-5 [facility] MCHC Auto (RBC) [Mass/Vol]Or dered By: Dr. Salazar on 02-01-2022 MCHC (RBC) [Mass/Vol] 32.2 g/dL 32-36 [facility] Mucus LM Ql (Urine sed)Order ed By: Dr. Salazar on 02-01-2022 Mucus Ql (Urine sed) 0 SEEN /hpf [facility] Nitrite Test strip Ql (U)Ord ered By: Dr. Salazar on 02-01-2022 Nitrite Ql (U) Negative Negative [facility] No Panel InformationOrdered By: Dr. Salazar on 02-01-2022 Estimated Creatinine Clearance Calc 34.94 ml/min [facility] Estimated GFR (MDRD) Amer 50 mL/min >60 [facility] Comment on above: GFR Calc Estimated GFR (MDRD) Non-Af Amer 41 mL/min >60 [facility] Comment on above: Non- GFR Calc Troponin I High Sensitivity 10 pg/mL 3.0-78.0 [facility] Comment on above: Please Note: New Adriane t Units and Gender Specific Reference Ranges. For more information see Policy Stat Procedure [place] High Sensitivity Troponin (TNIH) and attachments. Platelets bldOrdered By: Dr. Salazar on 02-01-2022 Platelets (Bld) [#/Vol] 220 10*3/uL 150-450 [facility] Protein Test strip Ql (U)Ord ered By: Dr. Salazar on 02-01-2022 Protein Ql (U) 15 mg/dl Negative [facility] Serum or plasma albumin shae urement (mass/volume)Ordered By: Dr. Salazar on 02-01-2022 Albumin [Mass/Vol] 2.4 g/dL 3.2-5.0 [facility] Serum or plasma calcium shae urement (mass/volume)Ordered By: Dr. Salazar on 02-01-2022 Calcium [Mass/Vol] 7.8 mg/dL 8.5-10.1 [facility] Serum or plasma creatinine m easurement (mass/volume)Ordered By: Dr. Salazar on 02-01-2022 Creatinine [Mass/Vol] 1.75 mg/dL 0.70-1.30 [facility] Comment on above: The validity of the calculated GFR & GFRAA in patients over 70 years has not been determined. Clinical correlation is essential. Serum or plasma urea nitroge n measurement (mass/volume)Ordered By: Dr. Salazar on 02-01-2022 Urea nitrogen [Mass/Vol] 24 mg/dL 7-18 [facility] Squamous epithelial cells de tection in urine sediment by light microscopyOrdered By: Dr. Salazar on 02-01-2022 Epithelial cells.squamous LM Ql (Urine sed) 0 SEEN /hpf 0-5 [facility] Thin prep Papanicolaou smear with manual screeningOrdered By: Dr. Salazar on 02-01-2022 Thin prep Papanicolaou smear with manual screening 17 U/L 15-37 [facility] Thin prep Papanicolaou smear with manual screening 14 5-15 [facility] Urine blood detectionOrdered By: Dr. Salazar on 02-01-2022 RBC Ql (U) Negative Negative [facility] RBC Ql (U) 0 SEEN /hpf 0-5 [facility] Urine clarityOrdered By: Dr. Salazar on 02-01-2022 Clarity (U) Clear Clear [facility] Urine color determinationOrd ered By: Dr. Salazar on 02-01-2022 Color (U) Yellow Yellow [facility] Urine glucose detectionOrder ed By: Dr. Salazar on 02-01-2022 Glucose Ql (U) Normal mg/dl Normal [facility] Urine leukocyte esterase det ection by dipstickOrdered By: Dr. Salazar on 02-01-2022 Leukocyte esterase Test strip Ql (U) Negative Negative [facility] Urine pHOrdered By: Dr. Blanka carroll on 02-01-2022 pH (U) 5.0 [pH] 5.0 - 8.0 [facility] Urine sediment bacteria coun t by microscopy (number/high power field)Ordered By: Dr. Salazar on 02-01-2022 Bacteria LM.HPF (Urine sed) [#/Area] 0 /[HPF] None Seen [facility] Urine specific gravity measu rementOrdered By: Dr. Salazar on 02-01-2022 Specific gravity (U) [Rel density] 1.025 1.002-1.030 [facility] Urobilinogen Auto test strip Ql (U)Ordered By: Dr. Salazar on 02-01-2022 Urobilinogen Ql (U) Normal mg/dl Normal [facility] NT PRO BNPon 01-07-2022 Natriuretic peptide.B prohormone N-Terminal [Mass/Vol] 139 pg/mL High <125 pg/mL [facility] No Panel Informationon 01-07 [facility] TROPONIN Ton 01-07-2022 Troponin T.cardiac [Mass/Vol] 0.000 - 0.029 ng/mL [facility] SIGMOIDOSCOPYon 09-17-2021 [facility] CBC W Auto Differential pane l (Bld)on 07-07-2021 Abs Immature Gran 0.03 k/uL <0.10 k/uL [facility] Basophils (Bld) [#/Vol] 10*3/uL <0.11 k/uL [facility] Basophils/100 WBC (Bld) 0.5 % [facility] Differential cell count method Nom (Bld) Auto [facility] Eosinophils (Bld) [#/Vol] 0.07 10*3/uL <0.46 k/uL [facility] Eosinophils/100 WBC (Bld) 1.7 % [facility] Erythrocyte distribution width (RBC) [Ratio] 14.9 % 11.5 - 15.0 % [facility] Hematocrit (Bld) [Volume fraction] 38.0 % Low 39.0 - 51.0 % [facility] Hemoglobin (Bld) [Mass/Vol] 13.1 g/dL 13.0 - 17.0 g/dL [facility] Immature Gran % 0.7 % [facility] Lymphocytes (Bld) [#/Vol] 0.47 10*3/uL Low 1.00 - 4.00 k/uL [facility] Lymphocytes/100 WBC (Bld) 11.6 % [facility] MCH (RBC) [Entitic mass] 32.7 pg 26. 0 - 34.0 pg [facility] MCHC (RBC) [Mass/Vol] 34.5 g/dL 30.5 - 36.0 g/dL [facility] MCV (RBC) [Entitic vol] 94.8 fL 80.0 - 100.0 fL [facility] Monocytes (Bld) [#/Vol] 0.72 10*3/uL <0.87 k/uL [facility] Monocytes/100 WBC (Bld) 17.7 % [facility] Neutrophils (Bld) [#/Vol] 2.75 10*3/uL 1.45 - 7.50 k/uL [facility] Neutrophils/100 WBC (Bld) 67.8 % [facility] Nucleated RBC (Bld) [#/Vol] 10*3/uL <0.01 k/uL [facility] Nucleated RBC/100 WBC (Bld) [Ratio] 0.0 /100 WBC [facility] Platelet mean volume (Bld) [Entitic vol] 9.1 fL 9.0 - 12.7 fL [facility] Platelets (Bld) [#/Vol] 112 10*3/uL Low 150 - 400 k/uL [facility] RBC (Bld) [#/Vol] 4.01 10*6/uL Low 4.20 - 6.0 0 m/uL [facility] WBC (Bld) [#/Vol] 4.06 10*3/uL 3.70 - 11. 00 k/uL [facility] Comprehensive metabolic 2000 panelon 07-07-2021 Albumin [Mass/Vol] 4.3 g/dL 3.9 - 4.9 g/dL [facility] ALP [Catalytic activity/Vol] 86 U/L 38 - 113 U/L [facility] ALT [Catalytic activity/Vol] 30 U/L 10 - 54 U/L [facility] Anion gap [Moles/Vol] 8 mmol/L Low 9 - 18 mmol/L [facility] AST [Catalytic activity/Vol] 35 U/L 14 - 40 U/L [facility] Bilirubin [Mass/Vol] 0.3 mg/dL 0.2 - 1 .3 mg/dL [facility] Calcium [Mass/Vol] 8.7 mg/dL 8.5 - 10. 2 mg/dL [facility] Chloride [Moles/Vol] 105 mmol/L 97 - 10 5 mmol/L [facility] CO2 [Moles/Vol] 26 mmol/L 22 - 30 mmol/L [facility] Creatinine [Mass/Vol] 0.88 mg/dL 0.73 - 1.22 mg/dL [facility] Estimated Glomerular Filtration Rate 92 mL/min/1.73m >=60 mL/min/1.73m [facility] Glucose [Mass/Vol] 97 mg/dL 74 - 99 mg/dL [facility] Potassium [Moles/Vol] 3.9 mmol/L 3.7 - 5.1 mmol/L [facility] Protein [Mass/Vol] 6.8 g/dL 6.3 - 8.0 g/dL [facility] Sodium [Moles/Vol] 139 mmol/L 136 - 144 mmol/L [facility] Urea nitrogen [Mass/Vol] 12 mg/dL 9 - 24 mg/d L [facility] MAGNESIUM BLDon 07-07-2021 Magnesium [Mass/Vol] 2.1 mg/dL 1.7 - 2 .3 mg/dL [facility] CBC W Auto Differential pane l (Bld)on 06-30-2021 Abs Immature Gran 0.03 k/uL <0.10 k/uL [facility] Basophils (Bld) [#/Vol] 10*3/uL <0.11 k/uL [facility] Basophils/100 WBC (Bld) 0.6 % [facility] Differential cell count method Nom (Bld) Auto [facility] Eosinophils (Bld) [#/Vol] 0.10 10*3/uL <0.46 k/uL [facility] Eosinophils/100 WBC (Bld) 3.1 % [facility] Erythrocyte distribution width (RBC) [Ratio] 13.9 % 11.5 - 15.0 % [facility] Hematocrit (Bld) [Volume fraction] 38.9 % Low 39.0 - 51.0 % [facility] Hemoglobin (Bld) [Mass/Vol] 12.9 g/dL Low 13.0 - 17.0 g/dL [facility] Immature Gran % 0.9 % [facility] Lymphocytes (Bld) [#/Vol] 0.52 10*3/uL Low 1.00 - 4.00 k/uL [facility] Lymphocytes/100 WBC (Bld) 16.0 % [facility] MCH (RBC) [Entitic mass] 31.9 pg 26. 0 - 34.0 pg [facility] MCHC (RBC) [Mass/Vol] 33.2 g/dL 30.5 - 36.0 g/dL [facility] MCV (RBC) [Entitic vol] 96.0 fL 80.0 - 100.0 fL [facility] Monocytes (Bld) [#/Vol] 0.68 10*3/uL <0.87 k/uL [facility] Monocytes/100 WBC (Bld) 20.9 % [facility] Neutrophils (Bld) [#/Vol] 1.91 10*3/uL 1.45 - 7.50 k/uL [facility] Neutrophils/100 WBC (Bld) 58.5 % [facility] Nucleated RBC (Bld) [#/Vol] 10*3/uL <0.01 k/uL [facility] Nucleated RBC/100 WBC (Bld) [Ratio] 0.0 /100 WBC [facility] Platelet mean volume (Bld) [Entitic vol] 9.2 fL 9.0 - 12.7 fL [facility] Platelets (Bld) [#/Vol] 107 10*3/uL Low 150 - 400 k/uL [facility] RBC (Bld) [#/Vol] 4.05 10*6/uL Low 4.20 - 6.0 0 m/uL [facility] WBC (Bld) [#/Vol] 3.26 10*3/uL Low 3.70 - 11. 00 k/uL [facility] Comprehensive metabolic 2000 panelon 06-30-2021 Albumin [Mass/Vol] 4.1 g/dL 3.9 - 4.9 g/dL [facility] ALP [Catalytic activity/Vol] 91 U/L 38 - 113 U/L [facility] ALT [Catalytic activity/Vol] 22 U/L 10 - 54 U/L [facility] Anion gap [Moles/Vol] 7 mmol/L Low 9 - 18 mmol/L [facility] AST [Catalytic activity/Vol] 28 U/L 14 - 40 U/L [facility] Bilirubin [Mass/Vol] 0.3 mg/dL 0.2 - 1 .3 mg/dL [facility] Calcium [Mass/Vol] 8.4 mg/dL Low 8.5 - 10. 2 mg/dL [facility] Chloride [Moles/Vol] 107 mmol/L High 97 - 10 5 mmol/L [facility] CO2 [Moles/Vol] 25 mmol/L 22 - 30 mmol/L [facility] Creatinine [Mass/Vol] 0.82 mg/dL 0.73 - 1.22 mg/dL [facility] Estimated Glomerular Filtration Rate 94 mL/min/1.73m >=60 mL/min/1.73m [facility] Glucose [Mass/Vol] 103 mg/dL High 74 - 99 mg/dL [facility] Potassium [Moles/Vol] 4.1 mmol/L 3.7 - 5.1 mmol/L [facility] Protein [Mass/Vol] 6.5 g/dL 6.3 - 8.0 g/dL [facility] Sodium [Moles/Vol] 139 mmol/L 136 - 144 mmol/L [facility] Urea nitrogen [Mass/Vol] 11 mg/dL 9 - 24 mg/d L [facility] MAGNESIUM BLDon 06-30-2021 Magnesium [Mass/Vol] 2.1 mg/dL 1.7 - 2 .3 mg/dL [facility] CBC W Auto Differential pane l (Bld)on 06-23-2021 Abs Immature Gran <0.03 <0.10 k/uL [facility] Basophils (Bld) [#/Vol] 10*3/uL <0.11 k/uL [facility] Basophils/100 WBC (Bld) 0.3 % [facility] Differential cell count method Nom (Bld) Auto [facility] Eosinophils (Bld) [#/Vol] 0.10 10*3/uL <0.46 k/uL [facility] Eosinophils/100 WBC (Bld) 2.7 % [facility] Erythrocyte distribution width (RBC) [Ratio] 13.2 % 11.5 - 15.0 % [facility] Hematocrit (Bld) [Volume fraction] 39.1 % 39.0 - 51.0 % [facility] Hemoglobin (Bld) [Mass/Vol] 13.0 g/dL 13.0 - 17.0 g/dL [facility] Immature Gran % 0.3 % [facility] Lymphocytes (Bld) [#/Vol] 0.90 10*3/uL Low 1.00 - 4.00 k/uL [facility] Lymphocytes/100 WBC (Bld) 24.7 % [facility] MCH (RBC) [Entitic mass] 31.9 pg 26. 0 - 34.0 pg [facility] MCHC (RBC) [Mass/Vol] 33.2 g/dL 30.5 - 36.0 g/dL [facility] MCV (RBC) [Entitic vol] 95.8 fL 80.0 - 100.0 fL [facility] Monocytes (Bld) [#/Vol] 0.67 10*3/uL <0.87 k/uL [facility] Monocytes/100 WBC (Bld) 18.4 % [facility] Neutrophils (Bld) [#/Vol] 1.96 10*3/uL 1.45 - 7.50 k/uL [facility] Neutrophils/100 WBC (Bld) 53.6 % [facility] Nucleated RBC (Bld) [#/Vol] 10*3/uL <0.01 k/uL [facility] Nucleated RBC/100 WBC (Bld) [Ratio] 0.0 /100 WBC [facility] Platelet mean volume (Bld) [Entitic vol] 9.7 fL 9.0 - 12.7 fL [facility] Platelets (Bld) [#/Vol] 169 10*3/uL 150 - 400 k/uL [facility] RBC (Bld) [#/Vol] 4.08 10*6/uL Low 4.20 - 6.0 0 m/uL [facility] WBC (Bld) [#/Vol] 3.65 10*3/uL Low 3.70 - 11. 00 k/uL [facility] Comprehensive metabolic 2000 panelon 06-23-2021 Albumin [Mass/Vol] 4.0 g/dL 3.9 - 4.9 g/dL [facility] ALP [Catalytic activity/Vol] 89 U/L 38 - 113 U/L [facility] ALT [Catalytic activity/Vol] 18 U/L 10 - 54 U/L [facility] Anion gap [Moles/Vol] 11 mmol/L 9 - 18 mmol/L [facility] AST [Catalytic activity/Vol] 25 U/L 14 - 40 U/L [facility] Bilirubin [Mass/Vol] 0.3 mg/dL 0.2 - 1 .3 mg/dL [facility] Calcium [Mass/Vol] 8.6 mg/dL 8.5 - 10. 2 mg/dL [facility] Chloride [Moles/Vol] 105 mmol/L 97 - 10 5 mmol/L [facility] CO2 [Moles/Vol] 25 mmol/L 22 - 30 mmol/L [facility] Creatinine [Mass/Vol] 0.81 mg/dL 0.73 - 1.22 mg/dL [facility] Estimated Glomerular Filtration Rate 94 mL/min/1.73m >=60 mL/min/1.73m [facility] Glucose [Mass/Vol] 83 mg/dL 74 - 99 mg/dL [facility] Potassium [Moles/Vol] 3.8 mmol/L 3.7 - 5.1 mmol/L [facility] Protein [Mass/Vol] 6.5 g/dL 6.3 - 8.0 g/dL [facility] Sodium [Moles/Vol] 141 mmol/L 136 - 144 mmol/L [facility] Urea nitrogen [Mass/Vol] 13 mg/dL 9 - 24 mg/d L [facility] MAGNESIUM BLDon 06-23-2021 Magnesium [Mass/Vol] 2.1 mg/dL 1.7 - 2 .3 mg/dL [facility] CBC W Auto Differential pane l (Bld)on 06-16-2021 Abs Immature Gran 0.03 k/uL <0.10 k/uL [facility] Basophils (Bld) [#/Vol] 0.03 10*3/uL <0.11 k/uL [facility] Basophils/100 WBC (Bld) 0.6 % [facility] Differential cell count method Nom (Bld) Auto [facility] Eosinophils (Bld) [#/Vol] 0.15 10*3/uL <0.46 k/uL [facility] Eosinophils/100 WBC (Bld) 3.2 % [facility] Erythrocyte distribution width (RBC) [Ratio] 12.9 % 11.5 - 15.0 % [facility] Hematocrit (Bld) [Volume fraction] 38.4 % Low 39.0 - 51.0 % [facility] Hemoglobin (Bld) [Mass/Vol] 12.9 g/dL Low 13.0 - 17.0 g/dL [facility] Immature Gran % 0.6 % [facility] Lymphocytes (Bld) [#/Vol] 1.11 10*3/uL 1.00 - 4.00 k/uL [facility] Lymphocytes/100 WBC (Bld) 23.8 % [facility] MCH (RBC) [Entitic mass] 31.6 pg 26. 0 - 34.0 pg [facility] MCHC (RBC) [Mass/Vol] 33.6 g/dL 30.5 - 36.0 g/dL [facility] MCV (RBC) [Entitic vol] 94.1 fL 80.0 - 100.0 fL [facility] Monocytes (Bld) [#/Vol] 0.38 10*3/uL <0.87 k/uL [facility] Monocytes/100 WBC (Bld) 8.1 % [facility] Neutrophils (Bld) [#/Vol] 2.97 10*3/uL 1.45 - 7.50 k/uL [facility] Neutrophils/100 WBC (Bld) 63.7 % [facility] Nucleated RBC (Bld) [#/Vol] 10*3/uL <0.01 k/uL [facility] Nucleated RBC/100 WBC (Bld) [Ratio] 0.0 /100 WBC [facility] Platelet mean volume (Bld) [Entitic vol] 9.9 fL 9.0 - 12.7 fL [facility] Platelets (Bld) [#/Vol] 184 10*3/uL 150 - 400 k/uL [facility] RBC (Bld) [#/Vol] 4.08 10*6/uL Low 4.20 - 6.0 0 m/uL [facility] WBC (Bld) [#/Vol] 4.67 10*3/uL 3.70 - 11. 00 k/uL [facility] Comprehensive metabolic 2000 panelon 06-16-2021 Albumin [Mass/Vol] 3.9 g/dL 3.9 - 4.9 g/dL [facility] ALP [Catalytic activity/Vol] 95 U/L 38 - 113 U/L [facility] ALT [Catalytic activity/Vol] 12 U/L 10 - 54 U/L [facility] Anion gap [Moles/Vol] 7 mmol/L Low 9 - 18 mmol/L [facility] AST [Catalytic activity/Vol] 19 U/L 14 - 40 U/L [facility] Bilirubin [Mass/Vol] 0.6 mg/dL 0.2 - 1 .3 mg/dL [facility] Calcium [Mass/Vol] 8.4 mg/dL Low 8.5 - 10. 2 mg/dL [facility] Chloride [Moles/Vol] 105 mmol/L 97 - 10 5 mmol/L [facility] CO2 [Moles/Vol] 25 mmol/L 22 - 30 mmol/L [facility] Creatinine [Mass/Vol] 0.74 mg/dL 0.73 - 1.22 mg/dL [facility] Estimated Glomerular Filtration Rate 97 mL/min/1.73m >=60 mL/min/1.73m [facility] Glucose [Mass/Vol] 97 mg/dL 74 - 99 mg/dL [facility] Potassium [Moles/Vol] 3.8 mmol/L 3.7 - 5.1 mmol/L [facility] Protein [Mass/Vol] 6.4 g/dL 6.3 - 8.0 g/dL [facility] Sodium [Moles/Vol] 137 mmol/L 136 - 144 mmol/L [facility] Urea nitrogen [Mass/Vol] 13 mg/dL 9 - 24 mg/d L [facility] MAGNESIUM BLDon 06-16-2021 Magnesium [Mass/Vol] 2.1 mg/dL 1.7 - 2 .3 mg/dL [facility] Established Visit (Otolaryng ology)on 02-10-2021 Established [...] MG Oral TabletTAKE 1 TABLET TWICE DAILY. [place]-3 350 MG Oral Capsule Delayed Release Probiotic CAPS Tamsulosin HCl - 0.4 MG Oral CapsuleTAKE 1 CAPSULE Bedtime Triamcinolone Acetonide 0.1 % External Cream Physical Exam On physical exam, the patient is a well-nourished, well-developed patient, in no acute distress, and able to communicate without assistance in [place] language. Head and face is atraumatic and [...] 10.1 x (more content not included)... Normal [facility] MRI IAC w/wo Contraston 01-29 MRI IAC w/wo Contrast Normal [facility] Work Phone: NR MRI IAC WO/Won 02-10-2021 NR MRI IAC WO/W Patient Name: JAI LUNA STUDY: MRI IAC WO/W; 02/10/2021 1:53 pm INDICATION: Acoustic neuroma; Health Maintenance. COMPARISON: None. ACCESSION NUMBER(S): [id number] ORDERING CLINICIAN: GISELA HARRELL TECHNIQUE: T2, FLAIR, [...] age. Electronically signed by: DO Sly MAE [facility] Office Visit (Audiology)on 04-13-2020 Follow-up visit Diagnoses/Problems [...] aural fullness. Patient utilizes a CROS aid. [id number] Patient's preferred language: Trinidadian Preferred language of the parent, legal guardian or surrogate decision-maker of this minor or incapacitated patient: Not Applicable No overt signs of domestic violence/neglect/abus e. No referral made to Administrative Tech. 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 : No What are the patient's signs and symptoms? : Acoustic neuroma; Health Maintenance Audiology Referral Evaluation and Treatment Evaluate AND Treat Cross hearing aide Status: Hold For - Scheduling,Retrospect marquita By Protocol Authorization Requested for: [id number] Provider Impressions In summary, Mr. Luna is [...] MG Oral TabletTAKE 1 TABLET TWICE DAILY. [place]-3 350 MG Oral Capsule Delayed Release Probiotic Oral Capsule Tamsulosin HCl - 0.4 MG Oral CapsuleTAKE 1 CAPSULE Bedtime Triamcinolone Acetonide 0.1 % External Cream Vitals Vital Signs Recorded: 12Aug2020 11:33AM Height5 ft 5 in Peasbs984 lb 0.9 oz BMI Snftoobunu36.79 kg/m2 BSA Calculated1.97 Physical Exam On physical exam, the patient is a well-nourished, well-developed patient, in no acute distress, and able to communicate without assistance in Trin[place] language. Head and face is atraumatic and [...] shows moderat (more content not included)... Normal Immunetics COVID-19 virus antigen assay SARS-CoV-2 (COVID-19) Ag IA.rapid Ql (Resp) [facility] Work Phone: Influenza virus A and B and SARS-CoV-2 (COVID-19) Ag panel - Upper respiratory specim SARS-CoV-2 (COVID-19) RNA RODGER+probe Ql (Resp) [facility] Work Phone: Laboratory - Microbiology an d Antimicrobial susceptibility Bacteria identified Cx Nom (Bld) No growth in 5 days. [facility] Work Phone: Vital Signs Date Time Vital Sign Value Performing Clinician Facility 11-29-2024 07:49-0400 Body height 167.[address] Ktay Faust MD Work Phone: [facility] 11-29-2024 07:49-0400 Body mass index (BMI) [Ratio] 30.8 kg/m2 Dr. Katy Faust MD Work Phone: [phone] [place] [address] 11-29-2024 07:49-0400 Body weight 86.[address] Katy Faust MD Work Phone: [phone] [place] [address] 11-29-2024 07:49-0400 Diastolic blood pressure 77 mm[Hg] Dr. Katy Faust MD Work Phone: [phone] [place] [address] 11-29-2024 07:49-0400 Heart rate 76 /min Dr. Katy Faust MD Work Phone: [phone] [place] [address] 11-29-2024 07:49-0400 Respiratory rate 18 /min Dr. Katy Faust MD Work Phone: [phone] [place] [address] 11-29-2024 07:49-0400 SaO2% (BldA) [Mass fraction] 95 % Dr. Katy Faust MD Work Phone: [phone] [place] [address] 11-29-2024 07:49-0400 Systolic blood pressure 139 mm[Hg] Dr. Katy Faust MD Work Phone: [phone] [place] [address] 10-13-2024 08:58-0400 Body height 167.[address] Katy Faust MD Work Phone: [phone] [place] [address] 10-13-2024 08:58-0400 Body mass index (BMI) [Ratio] 31.3 kg/m2 Dr. Katy Faust MD Work Phone: [phone] [place] [address] 10-13-2024 08:58-0400 Body weight 87.[address] Katy Faust MD Work Phone: [phone] [place] [address] 08-23-2024 10:08-0400 Body temperature 97.3 [degF] Dr. Katy Faust MD Work Phone: 7(716)785-258392 [place] [address] 08-23-2024 10:08-0400 Body weight 87.[address] Katy Faust MD Work Phone: 2(722)571-886292 [place] [address] 08-23-2024 10:08-0400 Diastolic blood pressure 80 mm[Hg] Dr. Katy Faust MD Work Phone: [facility] 08-23-2024 10:08-0400 Heart rate 62 /min Dr. Katy Faust MD Work Phone: [facility] 08-23-2024 10:08-0400 Respiratory rate 16 /min Dr. Katy Faust MD Work Phone: [facility] 08-23-2024 10:08-0400 SaO2% (BldA) [Mass fraction] 98 % Dr. Katy Faust MD Work Phone: [facility] 08-23-2024 10:08-0400 Systolic blood pressure 120 mm[Hg] Dr. Katy Faust MD Work Phone: [facility] 08-15-2024 15:17-0400 Body mass index (BMI) [Ratio] 32.28 kg/m2 Norm Elena MAIL ROOM CLERK.[employer] Work Phone: [facility] 08-15-2024 15:17-0400 Body weight 87.3 kg Norm Elena MAIL ROOM CLERK.[employer] Work Phone: [facility] 08-15-2024 15:17-0400 Diastolic blood pressure 70 mm[Hg] Norm Elena MAIL ROOM CLERK.[employer] Work Phone: [facility] 08-15-2024 15:17-0400 Heart rate 62 /min Norm Elena MAIL ROOM CLERK.[employer] Work Phone: [facility] 08-15-2024 15:17-0400 SaO2% (BldA) [Mass fraction] 98 % Norm Elena MAIL ROOM CLERK.[employer] Work Phone: [facility] 08-15-2024 15:17-0400 Systolic blood pressure 132 mm[Hg] Norm Elena MAIL ROOM CLERK.[employer] Work Phone: [facility] 07-05-2024 07:57-0400 Body mass index (BMI) [Ratio] 31.91 kg/m2 Norm Elena MAIL ROOM CLERK.[employer] Work Phone: [facility] 07-05-2024 07:57-0400 Body weight 86.3 kg Norm Elena MAIL ROOM CLERK.[employer] Work Phone: [facility] 07-05-2024 07:57-0400 Diastolic blood pressure 80 mm[Hg] Norm Elena MAIL ROOM CLERK.[employer] Work Phone: [facility] 07-05-2024 07:57-0400 Heart rate 75 /min Norm Elena MAIL ROOM CLERK.[employer] Work Phone: [facility] 07-05-2024 07:57-0400 SaO2% (BldA) [Mass fraction] 97 % Norm Elena MAIL ROOM CLERK.[employer] Work Phone: [facility] 07-05-2024 07:57-0400 Systolic blood pressure 138 mm[Hg] Norm Elena MAIL ROOM CLERK.[employer] Work Phone: [facility] 05-31-2024 15:53-0400 Body mass index (BMI) [Ratio] 32.61 kg/m2 Katy Faust MD Work Phone: [facility] 05-31-2024 15:53-0400 Body temperature 97 [degF] Katy Faust MD Work Phone: [facility] 05-31-2024 15:53-0400 Body weight 88.2 kg Katy Faust MD Work Phone: [facility] 05-31-2024 15:53-0400 Diastolic blood pressure 68 mm[Hg] Katy Faust MD Work Phone: [facility] 05-31-2024 15:53-0400 Heart rate 64 /min Katy Faust MD Work Phone: [facility] 05-31-2024 15:53-0400 Respiratory rate 16 /min Katy Faust MD Work Phone: [facility] 05-31-2024 15:53-0400 Systolic blood pressure 138 mm[Hg] Katy Faust MD Work Phone: [facility] 04-25-2024 15:29-0500 Body temperature 98.5 [degF] Dr. Katy Faust MD Work Phone: 3(106)424-755345 [place] [address] 04-25-2024 15:29-0500 Diastolic blood pressure 75 mm[Hg] Dr. Katy Faust MD Work Phone: 1(261)857-492892 [place] [address] 04-25-2024 15:29-0500 Heart rate 65 /min Dr. Katy Faust MD Work Phone: 4(213)104-132592 [place] [address] 04-25-2024 15:29-0500 Respiratory rate 16 /min Dr. Katy Faust MD Work Phone: 8(815)443-646492 [place] [address] 04-25-2024 15:29-0500 SaO2% (BldA) [Mass fraction] 98 % Dr. Katy Faust MD Work Phone: 4(177)424-213592 [place] [address] 04-25-2024 15:29-0500 Systolic blood pressure 140 mm[Hg] Dr. Katy Faust MD Work Phone: 9(738)649-431445 [place] [address] 04-25-2024 10:35-0500 Body height 167.[address] Katy Faust MD Work Phone: 8(143)178-367292 [place] [address] 04-25-2024 10:35-0500 Body mass index (BMI) [Ratio] 30.4 kg/m2 Dr. Katy Faust MD Work Phone: 6(511)135-493092 [place] [address] 04-25-2024 10:35-0500 Body weight 85.[address] Katy Faust MD Work Phone: 5(954)210-120945 [place] [address] 01-04-2024 14:40-0500 Body height 164.5 cm Norm Elena MAIL ROOM CLERK.[employer] Work Phone: 8(326)668-508119 [place] [address] 01-04-2024 14:40-0500 Body mass index (BMI) [Ratio] 31.76 kg/m2 Norm Elena MAIL ROOM CLERK.[employer] Work Phone: 7(370)863-487119 [place] [address] 01-04-2024 14:40-0500 Body weight 85.9 kg Norm Elena MAIL ROOM CLERK.[employer] Work Phone: 2(774)435-620319 [place] [address] 01-04-2024 14:40-0500 Diastolic blood pressure 74 mm[Hg] Onrm Elena MAIL ROOM CLERK.[employer] Work Phone: [facility] 01-04-2024 14:40-0500 Heart rate 64 /min Norm Elena MAIL ROOM CLERK.[employer] Work Phone: [facility] 01-04-2024 14:40-0500 SaO2% (BldA) [Mass fraction] 98 % Norm Elena MAIL ROOM CLERK.[employer] Work Phone: [facility] 01-04-2024 14:40-0500 Systolic blood pressure 136 mm[Hg] Norm Elena MAIL ROOM CLERK.[employer] Work Phone: [facility] 11-30-2023 09:58-0400 Diastolic blood pressure 72 mm[Hg] Norm Elena MAIL ROOM CLERK.[employer] Work Phone: [facility] 11-30-2023 09:58-0400 Systolic blood pressure 150 mm[Hg] Norm Elena MAIL ROOM CLERK.[employer] Work Phone: [facility] 11-30-2023 09:57-0400 Body mass index (BMI) [Ratio] 30.17 kg/m2 Norm Elena MAIL ROOM CLERK.[employer] Work Phone: [facility] 11-30-2023 09:57-0400 Body weight 84.8 kg Norm Elena MAIL ROOM CLERK.[employer] Work Phone: [facility] 11-30-2023 09:57-0400 Heart rate 54 /min Norm Elena MAIL ROOM CLERK.[employer] Work Phone: [facility] 11-30-2023 09:57-0400 SaO2% (BldA) [Mass fraction] 99 % Norm Elena MAIL ROOM CLERK.[employer] Work Phone: [facility] 09-22-2023 13:28-0400 Diastolic blood pressure 76 mm[Hg] Pacc 1 Work Phone: [facility] 09-22-2023 13:28-0400 Heart rate 66 /min Pacc 1 Work Phone: [facility] 09-22-2023 13:28-0400 Systolic blood pressure 145 mm[Hg] Pacc 1 Work Phone: [facility] 09-22-2023 13:190400 Body height 167.6 cm Pacc 1 Work Phone: [facility] 09-22-2023 13:19-0400 Body mass index (BMI) [Ratio] 30.89 kg/m2 Pacc 1 Work Phone: [facility] 09-22-2023 13:190400 Body temperature 97.81 [degF] Pacc 1 Work Phone: [facility] 09-22-2023 13:19040 Body weight 86.8 kg Pacc 1 Work Phone: [facility] 09-22-2023 13:19-0400 Respiratory rate 18 /min Pacc 1 Work Phone: [facility] 09-22-2023 13:190400 SaO2% (BldA) [Mass fraction] 97 % Pacc 1 Work Phone: [facility] 07-14-2023 13:160400 Body height 167.6 cm Sabrina Muñiz MD Work Phone: [facility] 07-14-2023 13:16-0400 Body mass index (BMI) [Ratio] 30.76 kg/m2 Sabrina Muñiz MD Work Phone: [facility] 07-14-2023 13:16-0400 Body temperature 98.71 [degF] Sabrina Muñiz MD Work Phone: [facility] 07-14-2023 13:16-0400 Body weight 86.46 kg Sabrina Muñiz MD Work Phone: [facility] 07-14-2023 13:16-0400 Diastolic blood pressure 68 mm[Hg] Sabrina Muñiz MD Work Phone: [facility] 07-14-2023 13:16-0400 Systolic blood pressure 116 mm[Hg] Sabrina Muñiz MD Work Phone: [facility] 07-08-2023 08:08-0400 Body height 167.[address] Katy Faust Work Phone: 1(437)797-797592 [place] [address] 07-08-2023 08:08-0400 Body weight 85.[address] Katy Faust Work Phone: 3(669)958-632692 [place] [address] 07-07-2023 13:51-0400 Body mass index (BMI) [Ratio] 30.3 kg/m2 Dr. Katy Faust Work Phone: 9(538)308-747392 [place] [address] 06-11-2023 19:12-0400 Diastolic blood pressure 94 mm[Hg] Dr. Katy Faust Work Phone: 6(996)276-025492 [place] [address] 06-11-2023 19:12-0400 Heart rate 92 /min Dr. Katy Faust Work Phone: 6(331)199-859792 [place] [address] 06-11-2023 19:12-0400 Respiratory rate 20 /min Dr. Katy Faust Work Phone: 5(555)595-440192 [place] [address] 06-11-2023 19:12-0400 SaO2% (BldA) [Mass fraction] 96 % Dr. Katy Faust Work Phone: 6(713)890-609292 [place] [address] 06-11-2023 19:12-0400 Systolic blood pressure 156 mm[Hg] Dr. Katy Faust Work Phone: 9(593)975-961092 [place] [address] 06-11-2023 18:34-0400 Body height 167.[address] Katy Faust Work Phone: 1(831)416-775792 [place] [address] 06-11-2023 18:34-0400 Body mass index (BMI) [Ratio] 32.3 kg/m2 Dr. Katy Faust Work Phone: 7(830)973-612492 [place] [address] 06-11-2023 18:34-0400 Body temperature 95.8 [degF] Dr. Katy Faust Work Phone: 3(605)096-660492 [place] [address] 06-11-2023 18:34-0400 Body weight 90.[address] Katy Faust Work Phone: [facility] 05-31-2023 09:51-0400 Body temperature 97 [degF] Mary Anne Alejandro MAIL ROOM CLERK.[employer] Work Phone: [facility] 05-31-2023 09:51-0400 Body weight 85.1 kg Mary Anne Alejandro MAIL ROOM CLERK.[employer] Work Phone: [facility] 05-31-2023 09:51-0400 Diastolic blood pressure 62 mm[Hg] Mary Anne Alejandro MAIL ROOM CLERK.[employer] Work Phone: [facility] 05-31-2023 09:51-0400 Heart rate 60 /min Mary Anne Alejandro MAIL ROOM CLERK.[employer] Work Phone: [facility] 05-31-2023 09:51-0400 Respiratory rate 16 /min Mary Anne Alejandro MAIL ROOM CLERK.[employer] Work Phone: [facility] 05-31-2023 09:51-0400 SaO2% (BldA) [Mass fraction] 97 % Mary Anne Alejandor MAIL ROOM CLERK.[employer] Work Phone: [facility] 05-31-2023 09:51-0400 Systolic blood pressure 106 mm[Hg] Mary Anne Alejandro MAIL ROOM CLERK.[employer] Work Phone: [facility] 05-20-2023 15:36-0400 Body temperature 98.2 [degF] Dr. Katy Faust Work Phone: [facility] 05-20-2023 15:36-0400 Body weight 85.[address] Katy Faust Work Phone: [facility] 05-20-2023 15:36-0400 Diastolic blood pressure 69 mm[Hg] Dr. Katy Faust Work Phone: [facility] 05-20-2023 15:36-0400 Heart rate 62 /min Dr. Katy Faust Work Phone: [facility] 05-20-2023 15:36-0400 Respiratory rate 16 /min Dr. Katy Faust Work Phone: [facility] 05-20-2023 15:36-0400 SaO2% (BldA) [Mass fraction] 97 % Dr. Katy Faust Work Phone: [facility] 05-20-2023 15:36-0400 Systolic blood pressure 121 mm[Hg] Dr. Katy Faust Work Phone: 1(910)369-072345 [place] [address] 05-05-2023 15:07-0500 Diastolic blood pressure 66 mm[Hg] Dr. Katy Faust Work Phone: 2(006)246-469045 [place] [address] 05-05-2023 15:07-0500 Heart rate 60 /min Dr. Katy Faust Work Phone: 0(704)496-485545 [place] [address] 05-05-2023 15:07-0500 Systolic blood pressure 144 mm[Hg] Dr. Katy Faust Work Phone: 9(946)687-977645 [place] [address] 05-05-2023 14:48-0500 Body height 167.[address] Katy Faust Work Phone: 3(535)462-346845 [place] [address] 05-05-2023 14:48-0500 Body mass index (BMI) [Ratio] 30.3 kg/m2 Dr. Katy Faust Work Phone: 3(489)223-258245 [place] [address] 05-05-2023 14:48-0500 Body weight 85.[address] Katy Faust Work Phone: 3(755)870-358045 [place] [address] 05-05-2023 14:48-0500 Respiratory rate 18 /min Dr. Katy Faust Work Phone: [facility] 12-03-2022 12:30-0400 Diastolic blood pressure 64 mm[Hg] Justin William MD Work Phone: [facility] 12-03-2022 12:30-0400 Heart rate 60 /min Justin William MD Work Phone: [facility] 12-03-2022 12:30-0400 Respiratory rate 17 /min Justin William MD Work Phone: [facility] 12-03-2022 12:30-0400 SaO2% (BldA) [Mass fraction] 99 % Justin William MD Work Phone: [facility] 12-03-2022 12:30-0400 Systolic blood pressure 109 mm[Hg] Justin William MD Work Phone: [facility] 12-03-2022 09:16-0400 Body temperature 97.5 [degF] Justin William MD Work Phone: [facility] 11-03-2022 10:24-0400 Body weight 77.07 kg Terry Balderrama MD Work Phone: [facility] 11-03-2022 10:24-0400 Diastolic blood pressure 76 mm[Hg] Terry Balderrama MD Work Phone: [facility] 11-03-2022 10:24-0400 Heart rate 56 /min Terry Balderrama MD Work Phone: [facility] 11-03-2022 10:24-0400 Systolic blood pressure 120 mm[Hg] Terry Balderrama MD Work Phone: [facility] 05-20-2022 13:44-0400 Body height 167.6 cm ANTONI Cheung MD Work Phone: [facility] 05-20-2022 13:44-0400 Body weight 68.95 kg ANTONI Cheung MD Work Phone: [facility] 05-20-2022 11:24-0400 Body height 167.6 cm Terry Balderrama MD Work Phone: [facility] 05-20-2022 11:24-0400 Body weight 68.95 kg Terry Balderrama MD Work Phone: [facility] 05-20-2022 11:24-0400 Diastolic blood pressure 74 mm[Hg] Terry Balderrama MD Work Phone: [facility] 05-20-2022 11:24-0400 Heart rate 87 /min Terry Balderrama MD Work Phone: [facility] 05-20-2022 11:24-0400 SaO2% (BldA) [Mass fraction] 98 % Terry Balderrama MD Work Phone: [facility] 05-20-2022 11:24-0400 Systolic blood pressure 111 mm[Hg] Terry Balderrama MD Work Phone: [facility] 05-20-2022 09:33-0400 Body height 167.6 cm Pacc 5 Work Phone: [facility] 05-20-2022 09:33-0400 Body temperature 97 [degF] Pacc 5 Work Phone: [facility] 05-20-2022 09:33-0400 Body weight 68.95 kg Pacc 5 Work Phone: [facility] 05-20-2022 09:33-0400 Diastolic blood pressure 74 mm[Hg] Pacc 5 Work Phone: [facility] 05-20-2022 09:33-0400 Heart rate 87 /min Pacc 5 Work Phone: [facility] 05-20-2022 09:33-0400 SaO2% (BldA) [Mass fraction] 98 % Pacc 5 Work Phone: [facility] 05-20-2022 09:33-0400 Systolic blood pressure 111 mm[Hg] Pacc 5 Work Phone: [facility] 04-23-2022 11:38-0500 Body temperature 98.1 [degF] Doris Rivera RN Work Phone: [facility] 04-23-2022 11:38-0500 Body weight 67.13 kg Doris Rivera RN Work Phone: [facility] 04-23-2022 11:38-0500 Diastolic blood pressure 64 mm[Hg] Doris Rivera RN Work Phone: [facility] 04-23-2022 11:38-0500 Heart rate 93 /min Doris Rivera RN Work Phone: [facility] 04-23-2022 11:38-0500 Respiratory rate 18 /min Doris Rivrea RN Work Phone: [facility] 04-23-2022 11:38-0500 SaO2% (BldA) [Mass fraction] 97 % Doris Rivera RN Work Phone: [facility] 04-23-2022 11:38-0500 Systolic blood pressure 90 mm[Hg] Doris Rivera RN Work Phone: [facility] 04-22-2022 16:12-0500 Body weight 67.59 kg Katy Faust MD Work Phone: [facility] 04-22-2022 16:12-0500 Diastolic blood pressure 76 mm[Hg] Katy Faust MD Work Phone: [facility] 04-22-2022 16:12-0500 Heart rate 103 /min Katy Faust MD Work Phone: [facility] 04-22-2022 16:12-0500 Respiratory rate 18 /min Katy Faust MD Work Phone: [facility] 04-22-2022 16:12-0500 Systolic blood pressure 109 mm[Hg] Katy Faust MD Work Phone: [facility] 04-22-2022 13:50-0500 Body temperature 97.9 [degF] Estefany Stern PT Work Phone: [facility] 04-22-2022 13:50-0500 Body weight 67.41 kg Estefany Stern PT Work Phone: [facility] 04-22-2022 13:50-0500 Diastolic blood pressure 76 mm[Hg] Estefany Stern PT Work Phone: [facility] 04-22-2022 13:50-0500 Heart rate 114 /min Estefany Stern PT Work Phone: [facility] 04-22-2022 13:50-0500 Respiratory rate 18 /min Estefany Stern PT Work Phone: [facility] 04-22-2022 13:50-0500 SaO2% (BldA) [Mass fraction] 99 % Estefany Stern PT Work Phone: [facility] 04-22-2022 13:50-0500 Systolic blood pressure 108 mm[Hg] Estefany Stern PT Work Phone: [facility] 04-21-2022 11:48-0500 Heart rate 109 /min Isela Patrizia SPORTS EDITOR Work Phone: [facility] 04-21-2022 11:48-0500 SaO2% (BldA) [Mass fraction] 97 % Isela Patrizia SPORTS EDITOR Work Phone: [facility] 04-21-2022 11:13-0500 Body temperature 97.5 [degF] Isela Patrizia SPORTS EDITOR Work Phone: [facility] 04-21-2022 11:13-0500 Diastolic blood pressure 66 mm[Hg] Isela Patrizia SPORTS EDITOR Work Phone: [facility] 04-21-2022 11:13-0500 Respiratory rate 18 /min Isela Patrizia SPORTS EDITOR Work Phone: [facility] 04-21-2022 11:13-0500 Systolic blood pressure 110 mm[Hg] Isela Patrizia SPORTS EDITOR Work Phone: [facility] 04-17-2022 11:42-0500 Diastolic blood pressure 72 mm[Hg] Isela Patrizia SPORTS EDITOR Work Phone: [facility] 04-17-2022 11:42-0500 Heart rate 94 /min Isela Patrizia SPORTS EDITOR Work Phone: [facility] 04-17-2022 11:42-0500 SaO2% (BldA) [Mass fraction] 99 % Isela Patrizia SPORTS EDITOR Work Phone: [facility] 04-17-2022 11:42-0500 Systolic blood pressure 102 mm[Hg] Islea Patrizia SPORTS EDITOR Work Phone: [facility] 04-17-2022 11:16-0500 Respiratory rate 18 /min Isela Patrizia SPORTS EDITOR Work Phone: [facility] 04-15-2022 11:15-0500 Body temperature 97.39 [degF] Isela Patrizia SPORTS EDITOR Work Phone: [facility] 04-15-2022 11:15-0500 Diastolic blood pressure 68 mm[Hg] Isela Patrizia SPORTS EDITOR Work Phone: [facility] 04-15-2022 11:15-0500 Heart rate 86 /min Isela Patrizia SPORTS EDITOR Work Phone: [facility] 04-15-2022 11:15-0500 Respiratory rate 18 /min Isela Patrizia SPORTS EDITOR Work Phone: [facility] 04-15-2022 11:15-0500 SaO2% (BldA) [Mass fraction] 99 % Isela Patrizia SPORTS EDITOR Work Phone: [facility] 04-15-2022 11:15-0500 Systolic blood pressure 116 mm[Hg] Isela Patrizia SPORTS EDITOR Work Phone: [facility] 04-13-2022 11:50-0500 Body temperature 97.9 [degF] Britta Mantilla RN Work Phone: [facility] 04-13-2022 11:50-0500 Diastolic blood pressure 78 mm[Hg] Britta Mantilla RN Work Phone: [facility] 04-13-2022 11:50-0500 Heart rate 84 /min Britta Mantilla RN Work Phone: [facility] 04-13-2022 11:50-0500 Respiratory rate 16 /min Britta Mantilla RN Work Phone: [facility] 04-13-2022 11:50-0500 SaO2% (BldA) [Mass fraction] 99 % Britta Most RN Work Phone: [facility] 04-13-2022 11:50-0500 Systolic blood pressure 118 mm[Hg] Britta Most RN Work Phone: [facility] 04-09-2022 11:11-0500 Body temperature 97.9 [degF] Britta Most RN Work Phone: [facility] 04-09-2022 11:11-0500 Body weight 63.96 kg Britta Most RN Work Phone: [facility] 04-09-2022 11:11-0500 Diastolic blood pressure 70 mm[Hg] Britta Most RN Work Phone: [facility] 04-09-2022 11:11-0500 Heart rate 92 /min Britta Most RN Work Phone: [facility] 04-09-2022 11:11-0500 Respiratory rate 16 /min Britta Most RN Work Phone: [facility] 04-09-2022 11:11-0500 SaO2% (BldA) [Mass fraction] 97 % Britta Most RN Work Phone: [facility] 04-09-2022 11:11-0500 Systolic blood pressure 116 mm[Hg] Britta Most RN Work Phone: [facility] 04-07-2022 11:50-0500 Heart rate 91 /min Isela Patrizia SPORTS EDITOR Work Phone: [facility] 04-07-2022 11:50-0500 SaO2% (BldA) [Mass fraction] 99 % Isela Patrizia SPORTS EDITOR Work Phone: [facility] 04-07-2022 11:19-0500 Diastolic blood pressure 70 mm[Hg] Isela Patrizia SPORTS EDITOR Work Phone: [facility] 04-07-2022 11:19-0500 Systolic blood pressure 110 mm[Hg] Isela Patrizia SPORTS EDITOR Work Phone: [facility] 04-07-2022 11:13-0500 Body temperature 97.59 [degF] Isela Acharya SPORTS EDITOR Work Phone: [facility] 04-07-2022 11:13-0500 Respiratory rate 18 /min Isela Patrizia SPORTS EDITOR Work Phone: [facility] 04-06-2022 14:47-0500 Body height 165.1 cm Norm Elena MAIL ROOM CLERK.[employer] Work Phone: [facility] 04-06-2022 14:47-0500 Body weight 64.86 kg Norm Elena MAIL ROOM CLERK.[employer] Work Phone: [facility] 04-06-2022 14:47-0500 Diastolic blood pressure 80 mm[Hg] Norm Elena MAIL ROOM CLERK.[employer] Work Phone: [facility] 04-06-2022 14:47-0500 Heart rate 115 /min Norm Elena MAIL ROOM CLERK.[employer] Work Phone: [facility] 04-06-2022 14:47-0500 SaO2% (BldA) [Mass fraction] 93 % Norm Elena MAIL ROOM CLERK.[employer] Work Phone: [facility] 04-06-2022 14:47-0500 Systolic blood pressure 98 mm[Hg] Norm Elena MAIL ROOM CLERK.[employer] Work Phone: [facility] 04-06-2022 13:28-0500 Body weight 64.5 kg Britta Mantilla RN Work Phone: [facility] 04-06-2022 13:28-0500 Diastolic blood pressure 60 mm[Hg] Britta Mantilla RN Work Phone: [facility] [facility] 04-[facility]-2022 13:28-0500 Systolic blood pressure 88 mm[Hg] Britta Mantilla RN Work Phone: [facility] 04-06-2022 13:27-0500 Body temperature 97.9 [degF] Britta Mantilla RN Work Phone: [facility] 04-06-2022 13:27-0500 Heart rate 108 /min Britta Most RN Work Phone: [facility] 04-06-2022 13:27-0500 Respiratory rate 16 /min Britta Most RN Work Phone: [facility] 04-06-2022 13:27-0500 SaO2% (BldA) [Mass fraction] 97 % Britta Most RN Work Phone: [facility] 04-03-2022 11:44-0500 Heart rate 99 /min Isela Patrizia SPORTS EDITOR Work Phone: [facility] 04-03-2022 11:44-0500 SaO2% (BldA) [Mass fraction] 99 % Isela Patrizia SPORTS EDITOR Work Phone: [facility] 04-03-2022 11:35-0500 Body temperature 97.81 [degF] Isela Patrizia SPORTS EDITOR Work Phone: [facility] 04-03-2022 11:35-0500 Diastolic blood pressure 76 mm[Hg] Isela Patrizia SPORTS EDITOR Work Phone: [facility] 04-03-2022 11:35-0500 Respiratory rate 18 /min Isela Patrizia SPORTS EDITOR Work Phone: [facility] 04-03-2022 11:35-0500 Systolic blood pressure 118 mm[Hg] Isela Patrizia SPORTS EDITOR Work Phone: [facility] 04-02-2022 17:14-0500 Body temperature 97.9 [degF] Britta Most RN Work Phone: [facility] 04-02-2022 17:14-0500 Diastolic blood pressure 78 mm[Hg] Britta Most RN Work Phone: [facility] 04-02-2022 17:14-0500 Heart rate 88 /min Britta Most RN Work Phone: [facility] 04-02-2022 17:14-0500 Respiratory rate 16 /min Britta Most RN Work Phone: [facility] 04-02-2022 17:14-0500 SaO2% (BldA) [Mass fraction] 98 % Britta Most RN Work Phone: [facility] 04-02-2022 17:14-0500 Systolic blood pressure 118 mm[Hg] Britta Most RN Work Phone: [facility] 03-31-2022 15:15-0500 Heart rate 110 /min Isela Patrizia SPORTS EDITOR Work Phone: [facility] 03-31-2022 15:15-0500 SaO2% (BldA) [Mass fraction] 99 % Isela Patrizia SPORTS EDITOR Work Phone: [facility] 03-31-2022 14:40-0500 Body temperature 97.59 [degF] Isela Patrizia SPORTS EDITOR Work Phone: [facility] 03-31-2022 14:40-0500 Body weight 66.68 kg Isela Patrizia SPORTS EDITOR Work Phone: [facility] 03-31-2022 14:40-0500 Diastolic blood pressure 66 mm[Hg] Isela Patrizia SPORTS EDITOR Work Phone: [facility] 03-31-2022 14:40-0500 Respiratory rate 16 /min Isela Patrizia SPORTS EDITOR Work Phone: [facility] 03-31-2022 14:40-0500 Systolic blood pressure 114 mm[Hg] Isela Patrizia SPORTS EDITOR Work Phone: [facility] 03-30-2022 15:12-0500 Body temperature 98.01 [degF] Britta Most RN Work Phone: [facility] 03-30-2022 15:12-0500 Diastolic blood pressure 82 mm[Hg] Britta Most RN Work Phone: [facility] 03-30-2022 15:12-0500 Heart rate 84 /min Britta Most RN Work Phone: [facility] 03-30-2022 15:12-0500 Respiratory rate 16 /min Britta Most RN Work Phone: [facility] 03-30-2022 15:12-0500 SaO2% (BldA) [Mass fraction] 98 % Britta Mantilla RN Work Phone: [facility] 03-30-2022 15:12-0500 Systolic blood pressure 122 mm[Hg] Britta Mantilla RN Work Phone: [facility] 03-27-2022 14:33-0500 Heart rate 100 /min Isela Patrizia SPORTS EDITOR Work Phone: [facility] 03-27-2022 14:33-0500 SaO2% (BldA) [Mass fraction] 99 % Isela Patrizia SPORTS EDITOR Work Phone: [facility] 03-27-2022 14:14-0500 Body temperature 97.59 [degF] Isela Patrizia SPORTS EDITOR Work Phone: [facility] 03-27-2022 14:14-0500 Diastolic blood pressure 74 mm[Hg] Isela Patrizia SPORTS EDITOR Work Phone: [facility] 03-27-2022 14:14-0500 Respiratory rate 18 /min Isela Patrizia SPORTS EDITOR Work Phone: [facility] 03-27-2022 14:14-0500 Systolic blood pressure 122 mm[Hg] Isela Patrizia SPORTS EDITOR Work Phone: [facility] 03-26-2022 12:46-0500 Body temperature 97.9 [degF] Doris Rivera RN Work Phone: [facility] 03-26-2022 12:46-0500 Body weight 68.04 kg Doris Rivera RN Work Phone: [facility] 03-26-2022 12:46-0500 Diastolic blood pressure 83 mm[Hg] Doris Rivera RN Work Phone: [facility] 03-26-2022 12:46-0500 Heart rate 82 /min Doris Rivera RN Work Phone: [facility] 03-26-2022 12:46-0500 Respiratory rate 20 /min Doris Rivera RN Work Phone: [facility] 03-26-2022 12:46-0500 SaO2% (BldA) [Mass fraction] 94 % Doris Rivera RN Work Phone: [facility] 03-26-2022 12:46-0500 Systolic blood pressure 114 mm[Hg] Doris Rivera RN Work Phone: [facility] 03-25-2022 12:07-0500 Diastolic blood pressure 77 mm[Hg] Isela Patrizia SPORTS EDITOR Work Phone: [facility] 03-25-2022 12:07-0500 Heart rate 77 /min Isela Patrizia SPORTS EDITOR Work Phone: [facility] 03-25-2022 12:07-0500 SaO2% (BldA) [Mass fraction] 98 % Isela Patrizia SPORTS EDITOR Work Phone: [facility] 03-25-2022 12:07-0500 Systolic blood pressure 110 mm[Hg] Isela Patrizia SPORTS EDITOR Work Phone: [facility] 03-25-2022 11:24-0500 Body temperature 97.81 [degF] Isela Patrizia SPORTS EDITOR Work Phone: [facility] 03-25-2022 11:24-0500 Respiratory rate 18 /min Isela Patrizia SPORTS EDITOR Work Phone: [facility] 03-24-2022 10:53-0500 Body temperature 97.7 [degF] Britta Mantilla RN Work Phone: [facility] 03-24-2022 10:53-0500 Body weight 68.4 kg Britta Mantilla RN Work Phone: [facility] 03-24-2022 10:53-0500 Diastolic blood pressure 84 mm[Hg] Britta Mantilla RN Work Phone: [facility] 03-24-2022 10:53-0500 Heart rate 72 /min Britta Mantilla RN Work Phone: [facility] 03-24-2022 10:53-0500 Respiratory rate 16 /min Britta Mantilla RN Work Phone: [facility] 03-24-2022 10:53-0500 SaO2% (BldA) [Mass fraction] 98 % Britta Mantilla RN Work Phone: [facility] 03-24-2022 10:53-0500 Systolic blood pressure 124 mm[Hg] Britta Mantilla RN Work Phone: [facility] 03-23-2022 13:25-0500 Body height 167.6 cm Skyla Knoxams MAIL ROOM CLERK.[employer] Work Phone: [facility] 03-23-2022 13:25-0500 Body weight 70.4 kg Skyla Reinaams MAIL ROOM CLERK.[employer] Work Phone: [facility] 03-23-2022 11:27-0500 Diastolic blood pressure 77 mm[Hg] Terry Balderrama MD Work Phone: [facility] 03-23-2022 11:27-0500 Heart rate 97 /min Terry Balderrama MD Work Phone: [facility] 03-23-2022 11:27-0500 Systolic blood pressure 113 mm[Hg] Terry Balderrama MD Work Phone: [facility] 03-23-2022 11:25-0500 Body weight 68.04 kg Terry Balderrama MD Work Phone: [facility] 03-19-2022 12:03-0500 Heart rate 92 /min Isela Patrizia SPORTS EDITOR Work Phone: [facility] 03-19-2022 12:03-0500 SaO2% (BldA) [Mass fraction] 95 % Isela Patrizia SPORTS EDITOR Work Phone: [facility] 03-19-2022 11:37-0500 Body temperature 97.59 [degF] Isela Patrizia SPORTS EDITOR Work Phone: [facility] 03-19-2022 11:37-0500 Diastolic blood pressure 66 mm[Hg] Isela Patrizia SPORTS EDITOR Work Phone: [facility] 03-19-2022 11:37-0500 Respiratory rate 18 /min Isela Patrizia SPORTS EDITOR Work Phone: [facility] 03-19-2022 11:37-0500 Systolic blood pressure 116 mm[Hg] Isela Patrizia SPORTS EDITOR Work Phone: [facility] 03-19-2022 09:20-0500 Body temperature 97.3 [degF] Britta Mantilla RN Work Phone: [facility] 03-19-2022 09:20-0500 Diastolic blood pressure 76 mm[Hg] Britta Mantilla RN Work Phone: [facility] 03-19-2022 09:20-0500 Heart rate 76 /min Britta Mantilla RN Work Phone: [facility] 03-19-2022 09:20-0500 Respiratory rate 16 /min Britta Mantilla RN Work Phone: [facility] 03-19-2022 09:20-0500 SaO2% (BldA) [Mass fraction] 98 % Brittadominique Mantilla RN Work Phone: [facility] 03-19-2022 09:20-0500 Systolic blood pressure 108 mm[Hg] Britta Mantilla RN Work Phone: [facility] 03-18-2022 11:27-0500 Body temperature 96.49 [degF] Russ Monteiro MD Work Phone: [facility] 03-18-2022 11:27-0500 Body weight 71.22 kg Russ Monteiro MD Work Phone: [facility] 03-18-2022 11:27-0500 Diastolic blood pressure 66 mm[Hg] Russ Monteiro MD Work Phone: [facility] 03-18-2022 11:27-0500 Heart rate 84 /min Russ Monteiro MD Work Phone: [facility] 03-18-2022 11:27-0500 Respiratory rate 20 /min Russ Monteiro MD Work Phone: [facility] 03-18-2022 11:27-0500 SaO2% (BldA) [Mass fraction] 100 % Russ Monteiro MD Work Phone: [facility] 03-18-2022 11:27-0500 Systolic blood pressure 110 mm[Hg] Russ Monteiro MD Work Phone: [facility] 03-15-2022 15:37-0500 Body temperature 97.3 [degF] Britta Mantilla RN Work Phone: [facility] 03-15-2022 15:37-0500 Diastolic blood pressure 78 mm[Hg] Britta Mantilla RN Work Phone: [facility] 03-15-2022 15:37-0500 Heart rate 96 /min Britta Mantilla RN Work Phone: [facility] 03-15-2022 15:37-0500 Respiratory rate 16 /min Britta Mantilla RN Work Phone: [facility] 03-15-2022 15:37-0500 SaO2% (BldA) [Mass fraction] 98 % Britta Mantilla RN Work Phone: [facility] 03-15-2022 15:37-0500 Systolic blood pressure 124 mm[Hg] Britta Mantilla RN Work Phone: [facility] 03-12-2022 09:36-0500 Body temperature 97.7 [degF] Estefany Stern PT Work Phone: [facility] 03-12-2022 09:36-0500 Diastolic blood pressure 74 mm[Hg] Estefany Stern PT Work Phone: [facility] 03-12-2022 09:36-0500 Heart rate 114 /min Esetfany Stern PT Work Phone: [facility] 03-12-2022 09:36-0500 Respiratory rate 18 /min Estefany Stern PT Work Phone: [facility] 03-12-2022 09:36-0500 SaO2% (BldA) [Mass fraction] 97 % Estefany HalStuart PT Work Phone: [facility] 03-12-2022 09:36-0500 Systolic blood pressure 120 mm[Hg] Estefany Stern PT Work Phone: [facility] 03-02-2022 06:35-0500 Diastolic blood pressure 78 mm[Hg] No Primary Care Physician [facility] 03-02-2022 06:35-0500 Heart rate 994 /min No Primary Care Physician [facility] 03-02-2022 06:35-0500 Respiratory rate 18 /min No Primary Care Physician [facility] 03-02-2022 06:35-0500 SaO2% (BldA) [Mass fraction] 95 % No Primary Care Physician [facility] 03-02-2022 06:35-0500 Systolic blood pressure 105 mm[Hg] No Primary Care Physician [facility] 03-02-2022 05:54-0500 Body temperature 98 [degF] No Primary Care Physician [facility] 03-02-2022 05:54-0500 Diastolic blood pressure 58 mm[Hg] No Primary Care Physician [facility] Work Phone: 03-02-2022 05:54-0500 Heart rate 110 /min No Primary Care Physician [facility] Work Phone: 03-02-2022 05:54-0500 Respiratory rate 20 /min No Primary Care Physician [facility] Work Phone: 03-02-2022 05:54-0500 SaO2% (BldA) [Mass fraction] 97 % No Primary Care Physician [facility] Work Phone: 03-02-2022 05:54-0500 Systolic blood pressure 83 mm[Hg] No Primary Care Physician [facility] Work Phone: 03-01-2022 20:13-0500 Body height 167.64 cm No Primary Care Physician [facility] 03-01-2022 20:13-0500 Body mass index (BMI) [Ratio] 28.6 kg/m2 No Primary Care Physician [facility] 03-01-2022 20:13-0500 Body weight 80.5 kg No Primary Care Physician [facility] 02-27-2022 05:44-0500 Diastolic blood pressure 72 mm[Hg] No Primary Care Physician [facility] 02-27-2022 05:44-0500 Heart rate 81 /min No Primary Care Physician [facility] 02-27-2022 05:44-0500 Respiratory rate 16 /min No Primary Care Physician [facility] 02-27-2022 05:44-0500 Systolic blood pressure 126 mm[Hg] No Primary Care Physician [facility] 02-27-2022 04:02-0500 Body height 167.64 cm No Primary Care Physician [facility] Work Phone: 02-27-2022 04:02-0500 Body mass index (BMI) [Ratio] 29.6 kg/m2 No Primary Care Physician [facility] 02-27-2022 04:02-0500 Body temperature 96.8 [degF] No Primary Care Physician [facility] 02-27-2022 04:02-0500 Body weight 83.3 kg No Primary Care Physician [facility] 02-27-2022 04:02-0500 SaO2% (BldA) [Mass fraction] 94 % No Primary Care Physician [facility] 02-26-2022 09:52-0500 Heart rate 117 /min Estefany Stern PT Work Phone: [facility] 02-26-2022 09:52-0500 SaO2% (BldA) [Mass fraction] 98 % Estefany Stern PT Work Phone: [facility] 02-26-2022 09:10-0500 Body temperature 97.7 [degF] Estefany Stern PT Work Phone: [facility] 02-26-2022 09:10-0500 Diastolic blood pressure 80 mm[Hg] Estefany Stern PT Work Phone: [facility] 02-26-2022 09:10-0500 Respiratory rate 18 /min Estefany Stern PT Work Phone: [facility] 02-26-2022 09:10-0500 Systolic blood pressure 128 mm[Hg] Estefany Stern PT Work Phone: [facility] 02-25-2022 10:12-0500 Body temperature 97.81 [degF] Jovanna Heaton RN Work Phone: [facility] 02-25-2022 10:12-0500 Diastolic blood pressure 74 mm[Hg] Jovanna Heaton RN Work Phone: [facility] 02-25-2022 10:12-0500 Heart rate 101 /min Jovanna Heaton RN Work Phone: [facility] 02-25-2022 10:12-0500 Respiratory rate 18 /min Jovanna Heaton RN Work Phone: [facility] 02-25-2022 10:12-0500 SaO2% (BldA) [Mass fraction] 95 % Jovanna Heaton RN Work Phone: [facility] 02-25-2022 10:12-0500 Systolic blood pressure 142 mm[Hg] Jovanna Heaton RN Work Phone: [facility] 02-01-2022 16:43-0500 Diastolic blood pressure 72 mm[Hg] No Primary Care Physician [facility] 02-01-2022 16:43-0500 Heart rate 93 /min No Primary Care Physician [facility] 02-01-2022 16:43-0500 Respiratory rate 18 /min No Primary Care Physician [facility] 02-01-2022 16:43-0500 SaO2% (BldA) [Mass fraction] 92 % No Primary Care Physician [facility] 02-01-2022 16:43-0500 Systolic blood pressure 118 mm[Hg] No Primary Care Physician [facility] 02-01-2022 16:35-0500 Inhaled oxygen flow rate 2 L/min No Primary Care Physician [facility] 02-01-2022 16:30-0500 Body temperature 96 [degF] No Primary Care Physician [facility] 02-01-2022 13:45-0500 Body height 167.64 cm No Primary Care Physician [facility] Work Phone: 02-01-2022 13:45-0500 Body mass index (BMI) [Ratio] 32.3 kg/m2 No Primary Care Physician [facility] 02-01-2022 13:45-0500 Body weight 90.71 kg No Primary Care Physician [facility] 01-30-2022 11:08-0500 Diastolic blood pressure 70 mm[Hg] Britta Mantilla RN Work Phone: [facility] 01-30-2022 11:08-0500 Systolic blood pressure 102 mm[Hg] Britta Mantilla RN Work Phone: [facility] 01-30-2022 10:28-0500 Body temperature 98.1 [degF] Britta Mantilla RN Work Phone: [facility] 01-30-2022 10:28-0500 Heart rate 64 /min Britta Mantilla RN Work Phone: [facility] 01-30-2022 10:28-0500 Respiratory rate 16 /min Brittadominique Mantilla RN Work Phone: [facility] 01-30-2022 10:28-0500 SaO2% (BldA) [Mass fraction] 98 % Brittadominique Mantilla RN Work Phone: [facility] 01-09-2022 10:02-0500 Body height 167.64 cm No Primary Care Physician [facility] Work Phone: 01-07-2022 08:47-0500 Diastolic blood pressure 78 mm[Hg] Pacc 4 Work Phone: [facility] 01-07-2022 08:47-0500 Systolic blood pressure 150 mm[Hg] Pacc 4 Work Phone: [facility] 01-07-2022 07:54-0500 Body height 167.6 cm Pacc 4 Work Phone: [facility] 01-07-2022 07:54-0500 Body temperature 97.59 [degF] Pac 4 Work Phone: [facility] 01-07-2022 07:54-0500 Body weight 88.63 kg Pac 4 Work Phone: [facility] 01-07-2022 07:54-0500 Heart rate 47 /min Pac 4 Work Phone: [facility] 01-07-2022 07:54-0500 SaO2% (BldA) [Mass fraction] 97 % Pac 4 Work Phone: [facility] 12-10-2021 09:50-0400 Body height 167.6 cm ANTONI Cheung MD Work Phone: [facility] 12-10-2021 09:50-0400 Body weight 85.73 kg ANTONI Cheung MD Work Phone: [facility] 09-17-2021 14:46-0400 Body height 167.6 cm ANTONI Cheung MD Work Phone: [facility] 09-17-2021 14:46-0400 Body weight 84.82 kg ANTONI Cheung MD Work Phone: [facility] 07-18-2021 12:41-0400 Body temperature 97.11 [degF] Alexia Rao MAIL ROOM CLERK.[employer] Work Phone: [facility] 07-18-2021 12:41-0400 Body weight 85.96 kg Alexia Rao MAIL ROOM CLERK.[employer] Work Phone: [facility] 07-18-2021 12:41-0400 Diastolic blood pressure 72 mm[Hg] Alexia Rao MAIL ROOM CLERK.[employer] Work Phone: [facility] 07-18-2021 12:41-0400 Heart rate 52 /min Alexia Rao MAIL ROOM CLERK.[employer] Work Phone: [facility] 07-18-2021 12:41-0400 SaO2% (BldA) [Mass fraction] 97 % Sullivan Rao MAIL ROOM CLERK.[employer] Work Phone: [facility] 07-18-2021 12:41-0400 Systolic blood pressure 131 mm[Hg] Alexia Rao MAIL ROOM CLERKBOGDAN Work Phone: [facility] 07-15-2021 14:15-0400 Diastolic blood pressure 84 mm[Hg] Marisela Rome MD, MD Work Phone: [facility] 07-15-2021 14:15-0400 Heart rate 58 /min Marisela Roem MD, MD Work Phone: [facility] 07-15-2021 14:15-0400 Systolic blood pressure 177 mm[Hg] Marisela Rome MD, MD Work Phone: [facility] 07-15-2021 14:12-0400 Body temperature 97.81 [degF] Marisela Rome MD, MD Work Phone: [facility] 07-15-2021 14:12-0400 Body weight 86.86 kg Marisela Rome MD, MD Work Phone: [facility] 07-15-2021 14:12-0400 Respiratory rate 15 /min Marisela Rome MD, MD Work Phone: [facility] 07-15-2021 14:12-0400 SaO2% (BldA) [Mass fraction] 99 % Marisela Rome MD, MD Work Phone: [facility] 07-08-2021 13:39-0400 Body temperature 97 [degF] Marisela Rome MD, MD Work Phone: [facility] 07-08-2021 13:39-0400 Body weight 86.64 kg Marisela Rome MD, MD Work Phone: [facility] 07-08-2021 13:39-0400 Diastolic blood pressure 77 mm[Hg] Marisela Rome MD, MD Work Phone: [facility] 07-08-2021 13:39-0400 Heart rate 70 /min Marisela Rome MD, MD Work Phone: [facility] 07-08-2021 13:39-0400 SaO2% (BldA) [Mass fraction] 94 % Marisela Rome MD, MD Work Phone: [facility] 07-08-2021 13:39-0400 Systolic blood pressure 146 mm[Hg] Marisela Rome MD, MD Work Phone: [facility] 07-04-2021 12:35-0400 Body temperature 97.39 [degF] Alexia Rao MAIL ROOM CLERK.[employer] Work Phone: [facility] 07-04-2021 12:35-0400 Body weight 87.54 kg Sullivan Rao MAIL ROOM CLERK.[employer] Work Phone: [facility] 07-04-2021 12:35-0400 Diastolic blood pressure 64 mm[Hg] Alexia Rao MAIL ROOM CLERK.[employer] Work Phone: [facility] 07-04-2021 12:35-0400 Heart rate 52 /min Sullivan Rao MAIL ROOM CLERK.[employer] Work Phone: [facility] 07-04-2021 12:35-0400 SaO2% (BldA) [Mass fraction] 99 % Sullivan Rao MAIL ROOM CLERK.[employer] Work Phone: [facility] 07-04-2021 12:35-0400 Systolic blood pressure 111 mm[Hg] Alexia Rao MAIL ROOM CLERK.[employer] Work Phone: [facility] 07-01-2021 13:56-0400 Diastolic blood pressure 71 mm[Hg] Marisela Rome MD, MD Work Phone: [facility] 07-01-2021 13:56-0400 Heart rate 54 /min Marisela Rome MD, MD Work Phone: [facility] 07-01-2021 13:56-0400 Systolic blood pressure 146 mm[Hg] Marisela Rome MD, MD Work Phone: [facility] 07-01-2021 13:31-0400 Body temperature 97 [degF] Marisela Rome MD, MD Work Phone: [facility] 07-01-2021 13:31-0400 Body weight 87.09 kg Marisela Rome MD, MD Work Phone: [facility] 07-01-2021 13:31-0400 Respiratory rate 15 /min Marisela Rome MD, MD Work Phone: [facility] 07-01-2021 13:31-0400 SaO2% (BldA) [Mass fraction] 99 % Marisela Rome MD, MD Work Phone: [facility] 06-24-2021 13:59-0400 Body temperature 97.11 [degF] Marisela Rome MD, MD Work Phone: [facility] 06-24-2021 13:59-0400 Body weight 87.32 kg Marisela Rome MD, MD Work Phone: [facility] 06-24-2021 13:59-0400 Diastolic blood pressure 69 mm[Hg] Marisela Rome MD, MD Work Phone: [facility] 06-24-2021 13:59-0400 Heart rate 61 /min Marisela Rome MD, MD Work Phone: [facility] 06-24-2021 13:59-0400 Respiratory rate 16 /min Marisela Rome MD, MD Work Phone: [facility] 06-24-2021 13:59-0400 SaO2% (BldA) [Mass fraction] 98 % Marisela Rome MD, MD Work Phone: [facility] 06-24-2021 13:59-0400 Systolic blood pressure 152 mm[Hg] Marisela Rome MD, MD Work Phone: [facility] 06-18-2021 08:45-0400 Body temperature 97.5 [degF] Helen Lakhani DO Work Phone: [facility] 06-18-2021 08:45-0400 Body weight 89.36 kg Helen Lakhani DO Work Phone: [facility] 06-18-2021 08:45-0400 Diastolic blood pressure 67 mm[Hg] Helen Masci DO Work Phone: [facility] 06-18-2021 08:45-0400 Heart rate 60 /min Helen Lakhani DO Work Phone: [facility] 06-18-2021 08:45-0400 SaO2% (BldA) [Mass fraction] 98 % Helen Lakhani [employer] Work Phone: [facility] 06-18-2021 08:45-0400 Systolic blood pressure 150 mm[Hg] Helen Lakhani DO Work Phone: [facility] 06-09-2021 08:54-0400 Body height 168.91 cm [facility] Work Phone: 06-09-2021 08:54-0400 Body mass index (BMI) [Ratio] 30.9 kg/m2 [facility] Work Phone: 06-09-2021 08:54-0400 Body temperature 97 [degF] [facility] Work Phone: 06-09-2021 08:54-0400 Body weight 88.45 kg [facility] Work Phone: 06-09-2021 08:54-0400 Diastolic blood pressure 72 mm[Hg] [facility] Work Phone: 06-09-2021 08:54-0400 Heart rate 52 /min [facility] Work Phone: 06-09-2021 08:54-0400 Respiratory rate 18 /min [facility] Work Phone: 06-09-2021 08:54-0400 SaO2% (BldA) [Mass fraction] 97 % [facility] Work Phone: 06-09-2021 08:54-0400 Systolic blood pressure 141 mm[Hg] [facility] Work Phone: 06-06-2021 13:26-0400 Body height 168 cm Helen Lakhani [employer] Work Phone: [facility] 06-06-2021 13:26-0400 Body temperature 96.91 [degF] Helen Lakhani DO Work Phone: [facility] 06-06-2021 [id number] Body weight 89.36 kg Helen Lakhani DO Work Phone: [facility] 06-06-2021 13:26-0400 Diastolic blood pressure 74 mm[Hg] Helen Lakhani DO Work Phone: [facility] 06-06-2021 13:26-0400 Heart rate 56 /min Helen Lakhani DO Work Phone: [facility] 06-06-2021 13:26-0400 SaO2% (BldA) [Mass fraction] 97 % Helen Lakhani DO Work Phone: [facility] 06-06-2021 13:26-0400 Systolic blood pressure 170 mm[Hg] Helen Lakhani DO Work Phone: [facility] 06-02-2021 09:19-0400 Diastolic blood pressure 75 mm[Hg] Marisela Rome MD, MD Work Phone: [facility] 06-02-2021 09:19-0400 Heart rate 48 /min Marisela Rome MD, MD Work Phone: [facility] 06-02-2021 09:19-0400 Systolic blood pressure 163 mm[Hg] Marisela Rome MD, MD Work Phone: [facility] 06-02-2021 09:12-0400 Body temperature 97.2 [degF] Marisela Rome MD, MD Work Phone: [facility] 06-02-2021 09:12-0400 Body weight 89.81 kg Marisela Rome MD, MD Work Phone: [facility] 06-02-2021 09:12-0400 Respiratory rate 15 /min Marisela Rome MD, MD Work Phone: [facility] 06-02-2021 09:12-0400 SaO2% (BldA) [Mass fraction] 98 % Marisela Rome MD, MD Work Phone: [facility] 05-29-2021 11:10-0400 Body temperature 97.2 [degF] Susu Huitron MD Work Phone: [facility] 05-29-2021 11:10-0400 Diastolic blood pressure 79 mm[Hg] Susu Huitron MD Work Phone: [facility] 05-29-2021 11:10-0400 Heart rate 51 /min Susu Huitron MD Work Phone: [facility] 05-29-2021 11:10-0400 Respiratory rate 16 /min Susu Huitron MD Work Phone: [facility] 05-29-2021 11:10-0400 SaO2% (BldA) [Mass fraction] 98 % Susu Huitron MD Work Phone: [facility] 05-29-2021 11:10-0400 Systolic blood pressure 135 mm[Hg] Susu Huitron MD Work Phone: [facility] 05-29-2021 11:04-0400 Body weight 88.72 kg Susu Huitron MD Work Phone: [facility] 05-29-2021 10:07-0400 Body height 167.6 cm Caty Bowens MD Work Phone: [facility] 05-29-2021 10:07-0400 Body temperature 97.2 [degF] Caty Bowens MD Work Phone: [facility] 05-29-2021 10:07-0400 Body weight 89.36 kg Caty Bowens MD Work Phone: [facility] 05-29-2021 10:07-0400 Diastolic blood pressure 79 mm[Hg] Caty Bowens MD Work Phone: [facility] 05-29-2021 10:07-0400 Heart rate 51 /min Caty Bowens MD Work Phone: [facility] 05-29-2021 10:07-0400 Respiratory rate 16 /min Caty Bowens MD Work Phone: [facility] 05-29-2021 10:07-0400 SaO2% (BldA) [Mass fraction] 98 % Caty Bowens MD Work Phone: [facility] 05-29-2021 10:07-0400 Systolic blood pressure 135 mm[Hg] Caty Bowens MD Work Phone: [facility] 02-10-2021 14:16-0500 Body height 66.04 cm No PCP [facility] Work Phone: 02-10-2021 14:16-0500 Body mass index (BMI) [Ratio] 211.46 kg/m2 No [facility] Work Phone: 02-10-2021 14:16-0500 Body surface area Derived from formula 1.03 m2 No PCP None [facility] Work Phone: 02-10-2021 14:16-0500 Body temperature 97.1 [degF] No PCP None -Otolaryngolo [facility] [address] Work Phone: 02-10-2021 14:16-0500 Body weight 92.22 kg No PCP None -Otolaryngolog [facility] Work Phone: 08-12-2020 11:33-0400 Body height 165.1 cm No PCP None [facility] Work Phone: 08-12-2020 11:33-0400 Body mass index (BMI) [Ratio] 32.79 kg/m2 No PCP None [facility] Work Phone: 08-12-2020 11:33-0400 Body surface area Derived from formula 1.97 m2 No PCP None [facility] Work Phone: 08-12-2020 11:33-0400 Body weight 89.39 kg No PCP None -Otolaryngolog y- [facility] [address] Work Phone: Encounters Encounter Date Encounter Type Care Provider Facility Start: 01-03-2025 Encounter for other preprocedural examination [facility] Start: 01-02-2025 End: 01-03-2025 ambulatory [facility] Facility:[facility] Start: 01-02-2025 ambulatory [facility] Facility:[facility] Start: 12-26-2024 End: 12-26-2024 ambulatory KATY FAUST Facility:[facility] Start: 12-26-2024 Encounter for other preprocedural examination SRINIVASAN DA SILVA [facility] Start: 12-22-2024 End: 12-22-2024 ambulatory [facility] Start: 11-29-2024 End: 11-29-2024 Patient encounter procedure Carlos Trujillo SECONDARY TEACHER-C -[facility] Work Phone: Start: 11-29-2024 End: 11-29-2024 Patient encounter status Carlos Trujillo SECONDARY TEACHER-C [facility] Start: 11-29-2024 End: 11-29-[address] Katy Faust MD Work Phone: -[facility] Start: 11-15-2024 ambulatory Carlos Trujillo SECONDARY TEACHER Facility [facility] Start: 10-26-2024 End: 10-27-2024 Admission to same day surgery center Katy Faust MD Work Phone: [facility] [place] Comment on above: Spinal surgery for s tenosis Start: 10-26-2024 End: 10-27-2024 ambulatory Katy Faust MD Work Phone: [facility] [place] Start: 10-13-2024 End: 10-13-[address] Howard Siddiqui MD -[facility] Work Phone: Start: 10-13-2024 End: 10-13-[address] Katy Faust MD Work Phone: -[facility] Start: 10-10-2024 Non-patient / Non-visit Dr. Raghu boothe MD -[facility] Start: 10-10-2024 End: 10-10-[address] Katy Faust MD Work Phone: -Cardiovascular Services Start: 10-10-2024 End: 10-10-2024 Patient encounter procedure Naty CAMACHO -Cardiovascular Services Work Phone: Start: 10-10-2024 End: 10-10-2024 ambulatory Katy Faust Facility:[facility] Start: 09-22-2024 End: 09-22-2024 ambulatory Howard Siddiqui Facility:[facility] Start: 09-22-2024 End: 09-22-[address] Howard Siddiqui MD -Physical Therapy Work Phone: Start: 09-20-2024 End: 09-20-[address] Howard Siddiqui MD -[facility] Work Phone: Start: 09-20-2024 End: 09-20-2024 ambulatory Howard Siddiqui Facility:[facility] Start: 09-13-2024 End: 09-13-[address] Howard Siddiqui MD -[facility] Work Phone: Start: 09-13-2024 End: 09-13-2024 ambulatory Howard Siddiqui [facility] Start: 08-23-2024 End: 08-23-2024 Patient encounter procedure Naty CAMACHO -[facility] Work Phone: Start: 08-23-2024 End: 08-23-[address] Katy Faust MD Work Phone: [facility] Work Phone: Start: 08-15-2024 End: 08-15-2024 Patient encounter procedure Norm Parker APRN.[employer] Work Phone: [facility] [place] Comment on above: Tendonitis (Primary Dx); Muscle tightness; Spinal stenosis of lumbar region without neurogenic claudication; History of malignant neoplasm of rectum; Presence of ileostomy (HCC) Start: 08-15-2024 End: 08-15-2024 ambulatory NORM ELENA Facility:[facility] Start: 08-13-2024 End: 10-31-2024 E-mail encounter from caregiver Katy Faust MD Work Phone: [facility] [place] Start: 08-13-2024 End: 10-31-2024 Patient encounter procedure Katy Faust MD Work Phone: [facility] [place] Comment on above: Appointment Request Start: 08-03-2024 End: 08-08-2024 ambulatory [facility] Provider [facility] [place] Comment on above: Ostomy pouches from [facility] Start: 08-01-2024 Non-patient / Non-visit Dr. Raghu boothe MD -[facility] Start: 08-01-2024 End: 08-01-[address] Katy Faust MD Work Phone: [facility] Work Phone: Start: 08-01-2024 End: 08-01-2024 Patient encounter procedure Naty CAMACHO -Cardiovascular Services Work Phone: Start: 07-31-2024 End: 07-31-2024 Nursing evaluation of patient and report [facility] Work Phone: Colorectal Surgery Comment on above: Attention to ileosto my (HCC) (Primary Dx) Start: 07-31-2024 End: 08-01-2024 ambulatory KATY FAUST Facility:[facility] Start: 07-17-2024 End: 07-17-2024 Nursing evaluation of patient and report [facility] Work Phone: Colorectal Surgery Comment on above: Attention to ileosto my (HCC) (Primary Dx) Start: 07-17-2024 End: 07-17-2024 ambulatory KATY FAUST Facility:[facility] Start: 07-06-2024 End: 07-06-[address] Howard Siddiqui MD -[facility] Work Phone: Start: 07-06-2024 End: 07-06-2024 ambulatory Howard Siddiqui [facility] Start: 07-05-2024 End: 07-05-2024 Telephone encounter Katy Faust MD Work Phone: [facility] [place] Comment on above: Patient Update Start: 07-05-2024 End: 07-05-2024 Patient encounter procedure Norm Singletaryr MAIL ROOM CLERK.[employer] Work Phone: [facility] [place] Comment on above: Skin ulcer of abdome n, with fat layer exposed (HCC) (Primary Dx); Presence of ileostomy (HCC); Anal squamous cell carcinoma (HCC) Start: 07-05-2024 End: 07-05-2024 ambulatory NORM PARKER Facility:[facility] Start: 07-03-2024 End: 07-03-2024 ambulatory Katy Faust MD Work Phone: [facility] [place] Comment on above: Ulcer Start: 05-31-2024 End: 05-31-2024 ambulatory KATY FAUST Facility:[facility] Start: 05-31-2024 End: 05-31-2024 Office outpatient visit 25 minutes Katy Faust MD Work Phone: [facility] [place] Comment on above: Spinal stenosis of l umbar region with neurogenic claudication (Primary Dx); Lumbar radiculopathy; Pain in both lower extremities; Bilateral lower extremity edema; Presence of ileostomy (HCC) Start: 05-25-2024 End: 05-26-2024 ambulatory Katy Faust MD Work Phone: [facility] [place] Comment on above: Edema and the limite d use of my legs. Start: 04-25-2024 End: 04-25-2024 Emergency department patient visit Dr. Donovan Mccabe DO -Emergency Department Work Phone: Start: 04-21-2024 End: 04-21-[address] Howard Siddiqui MD -[facility] Work Phone: Start: 04-21-2024 End: 04-21-2024 ambulatory Howard Siddiqui Facility:[facility] Start: 03-27-2024 End: 03-27-2024 Subsequent hospital visit by physician [facility] Comment on above: Acoustic neuroma (Mu lti) Start: 03-27-2024 End: 03-27-2024 ambulatory GISELA HAYES [facility] Start: 03-02-2024 End: 03-02-2024 ambulatory Zaira De Jesus Facility:[facility] Start: 02-25-2024 ambulatory Raghu Reynolds [facility] Start: 02-25-2024 End: 02-25-2024 ambulatory Naty Amato Facility:[facility] Start: 02-18-2024 End: 02-18-2024 ambulatory Robbie Dorina LAUREANO [facility] Start: 02-18-2024 End: 02-18-2024 [facility] Comment on above: Population Health Na vigation Outreach ([facility] [employer] [facility]/) Start: 02-14-2024 End: 02-28-2024 ambulatory Katy Faust MD Work Phone: [facility] [place] Comment on above: Flank pain. Start: 02-14-2024 End: 02-14-2024 Telephone encounter Katy Faust MD Work Phone: [facility] [place] Comment on above: Patient Update Start: 02-03-2024 End: 02-03-2024 ambulatory Howard Siddiqui Facility:[facility] Start: 01-18-2024 End: 01-19-2024 ambulatory Howardalicia Siddiqui Facility:[facility] Start: 01-18-2024 ambulatory Howard Siddiqui [facility] Start: 01-11-2024 End: 01-11-2024 ambulatory Howard Siddiqui Facility:[facility] Start: 01-05-2024 End: 01-05-2024 ambulatory Howard Siddiqui Facility:[facility] Start: 01-04-2024 End: 01-04-2024 Patient encounter procedure Norm Parker APRN.CNP Work Phone: [facility] [place] Comment on above: Cervical radiculopat hy (Primary Dx); Spinal stenosis in cervical region; Protrusion of cervical intervertebral disc; Pre-op evaluation; Status post coronary artery bypass graft; PVD (peripheral vascular disease) (HCC); History of DVT (deep vein thrombosis) Start: 01-04-2024 End: 01-04-2024 Preprocedural examination done Norm Parker APRN.[employer] Work Phone: [facility] Start: 01-04-2024 End: 01-04-2024 ambulatory KATY FAUST Facility:[facility] Start: 01-04-2024 Encounter for other preprocedural examination NORM PARKER [facility] Start: 12-22-2023 End: 12-22-2023 Telephone encounter Katy Faust MD Work Phone: [facility] [place] Start: 11-30-2023 End: 11-30-2023 Patient encounter procedure Norm Parker APRN.[employer] Work Phone: [facility] [place] Comment on [...] Katy Faust MD Work Phone: [facility] [place] Comment on above: Refill Request Start: 10-18-2023 End: 11-09-2023 ambulatory Katy Faust MD Work Phone: [facility] [place] Comment on above: ostomy bags Start: 09-24-2023 Telephone encounter Linda iqbal APRN.[employer] Work Phone: Pre Anesthesia Start: 09-22-2023 End: [...] bypass graft with angina pectoris, unspecified whether [place] or transplanted heart (HCC); History of pulmonary embolism; Bilateral carotid artery stenosis; PVD (peripheral vascular disease) (HCC); History of DVT (deep vein thrombosis); Rectal cancer (HCC) Start: 09-22-2023 End: 09-22-2023 Preprocedural examination done Pacc [address] 1 Work Phone: [facility] Work Phone: Start: 09-22-2023 End: 09-22-2023 Patient encounter procedure I Dutch Cheung MD Work Phone: Colorectal Surgery Comment on above: History of rectal ca ncer (Primary Dx) Start: 08-16-2023 Admission to [facility] [place] I Dutch Cheung MD Work Phone: Colorectal Surgery Comment on above: MRI of lower spine. Start: 08-16-2023 ambulatory I Dutch Cheung MD Work Phone: Colorectal Surgery Start: 08-03-2023 Admission to [facility] surgery center I Dutch Cheung MD Work Phone: Colorectal Surgery Start: 08-03-2023 ambulatory I Dutch Cheung MD Work Phone: Colorectal Surgery Start: 08-02-2023 ambulatory Katy beard MD Work Phone: [facility] [place] Comment on above: Ostomy pouches from [facility] [...] Start: 07-14-2023 End: 07-14-2023 ambulatory SABRINA MUÑIZ [facility] Start: 07-14-2023 End: 07-14-2023 Office outpatient new 60 minutes Sabrina Muñiz MD Work Phone: [facility] Comment on above: Rectal bleeding (Nalini la Dx); History of rectal cancer; Colorectal anastomotic stricture Start: 07-08-2023 End: 07-08-2023 Admission to same day surgery center Dr. Katy Faust Work Phone: [facility]-Machine Tool Mechanic/Special Procedures Work Phone: Start: 07-08-2023 End: 07-08-[address] 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 Katy Faust Work Phone: [facility]-Emergency Department Work Phone: Start: 06-11-2023 Orders Only Michael Christian MD Work Phone: Orthopaedics Comment on above: Pain in left arm (Pr imary Dx) Start: 06-04-2023 Non-patient / Non-visit Dr. Carey Faust Work Phone: [facility] Start: 06-04-2023 End: 06-04-[address] Katy Faust Work Phone: [facility] Work Phone: Start: 06-04-2023 End: 06-04-[address] Katy Faust Work Phone: [facility]-Cardiovascula r Services Work Phone: Start: 05-31-2023 End: 05-31-2023 Patient encounter procedure Mary Anne Alejandro MAIL ROOM CLERK.[employer] Work Phone: [facility] Comment on above: Ingrown nail of grea t toe (Primary Dx) Start: 05-20-2023 End: 05-20-[address] Katy Faust Work Phone: [facility] Vascular Surgery Work Phone: Start: 05-05-2023 End: 05-05-[address] Katy Faust Work Phone: [facility] Work Phone: Start: 04-27-2023 End: 04-27-2023 [facility] Work Phone: [facility] [place] Comment on above: Acute deep vein thro mbosis (DVT) of proximal vein of left lower extremity (HCC) (Primary Dx) Start: 04-21-2023 ambulatory Katy beard MD Work Phone: [facility] Start: 04-21-2023 Patient encounter procedure Katy Faust MD Work Phone: [facility] [place] Comment on above: Referral Start: 04-13-2023 End: 04-13-2023 Anticoagulant drug monitoring [facility] Work Phone: [facility] [place] Comment on above: Acute deep vein thro mbosis (DVT) of proximal vein of left lower extremity (HCC) (Primary Dx) Start: 03-24-2023 End: 03-24-2023 Subsequent hospital visit by physician Luis [facility] Comment on above: Acoustic neuroma (CM S/HCC) Start: 03-24-2023 End: 03-24-2023 ambulatory GISELAPILI HAYES [facility] Start: 12-30-2022 Refill Norm Parker APRN.CNP Work Phone: [facility] [place] Comment on above: Refill Request Start: 12-29-2022 End: 12-29-2022 Anticoagulant drug monitoring [facility] Work Phone: [facility] [place] Comment on above: Acute deep vein thro mbosis (DVT) of proximal vein of left lower extremity (HCC) (Primary Dx) Start: 12-15-2022 End: 12-15-2022 Anticoagulant drug monitoring [facility] Work Phone: [facility] [place] Comment on above: Acute deep vein thro mbosis (DVT) of proximal vein of left lower extremity (HCC) (Primary Dx) Start: 12-03-2022 ambulatory JUSTIN WILLIAM Facility: [facility] Start: 12-03-2022 End: 12-03-2022 Subsequent hospital visit by physician Justin William MD Work Phone: [facility] Radiology Comment on above: S/P IVC filter [Z95. [id number]] Start: 11-27-[address] [facility] Radiology Comment on above: Radiology Pre Proced ure Instructions Start: 11-17-2022 End: 11-17-2022 Anticoagulant drug monitoring [facility] Work Phone: [facility] [place] Comment on above: Acute deep vein thro [...] Start: 11-03-2022 End: 11-03-2022 Anticoagulant drug monitoring [facility] Work Phone: [facility] [place] Comment on above: Acute deep vein thro mbosis (DVT) of proximal vein of left lower extremity (HCC) (Primary Dx) Start: 11-03-2022 End: 11-03-2022 Patient encounter procedure Terry Balderrama MD Work Phone: Vascular Medicine Comment on above: 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) (Primary Dx); S/P IVC filter; Current use of group home anticoagulation; Bruit of right carotid artery; Atherosclerosis of aorta (HCC) Start: 10-22-2022 Telephone encounter Robert nunez MD Work Phone: [facility] Comment on above: Appointment Start: 10-01-2022 Telephone encounter Yessica wilson APRN.[employer] Work Phone: [facility] Comment on above: Patient Question Start: 09-30-2022 Telephone encounter Yessica wilson APRN.[employer] Work Phone: [facility] Comment on above: Appointment Deep vein thrombosis (DVT) of both lower extremities, unspecified chronicity, unspecified vein (HCC) (Primary Dx); 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) Start: 09-23-2022 ambulatory Katy beard MD Work Phone: [facility] [place] Comment on above: colon tissue in stoo l Start: 09-07-2022 End: 09-07-2022 Anticoagulant drug monitoring [facility] Work Phone: [facility] [place] Comment on above: Acute deep vein thro mbosis (DVT) of proximal vein of left lower extremity (HCC) (Primary Dx) Start: 08-25-2022 End: 08-25-2022 Anticoagulant drug monitoring [facility] Work Phone: [facility] [place] Comment on above: Acute deep vein thro mbosis (DVT) of proximal vein of left lower extremity (HCC) (Primary Dx) Start: 08-17-2022 ambulatory Ramiro Cheung MD Work Phone: Colorectal Surgery Comment on above: Bleeding Start: 08-16-2022 ambulatory Ramiro Cheung MD Work Phone: Colorectal Surgery Comment on above: Bleeding Start: 08-11-2022 End: 08-11-2022 [facility] Work [facility] [place] Comment on above: Acute deep vein thro mbosis (DVT) of proximal vein of left lower extremity (HCC) (Primary Dx) Start: 08-03-2022 Telephone encounter Katy dasilva MD Work Phone: [facility] [place] Comment on above: Orders (protime) Start: 08-03-2022 End: 08-03-2022 [facility] Work [facility] [place] Comment on above: Acute deep vein thro mbosis (DVT) of proximal vein of left lower extremity (HCC) (Primary Dx) Start: 07-25-2022 Telephone encounter Katy dasilva MD Work Phone: [facility] [place] Comment on above: Anticoagulation Start: 07-08-2022 Telephone encounter Norm horan APRN.SOYBEAN GROWER Work Phone: [facility] [place] Comment on above: need office notes ch anged Start: 06-16-2022 ambulatory Katy beard MD Work Phone: [facility] [place] Comment on above: [facility] Start: 06-04-2022 Anticoagulant drug monitoring Terry Balderrama MD Work Phone: Vascular Medicine Comment on above: anticoagulation Start: 06-04-2022 E-mail encounter fro m caregiver Terry Balderrama MD Work Phone: [facility] Start: 05-25-2022 Telephone encounter Katy dasilva [...] Start: 05-20-2022 End: 05-20-2022 Admission to establishment 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 5 Work Phone: [facility] Work Phone: Start: 04-29-2022 Telephone encounter Liz wood APRN.SOYBEAN GROWER Work Phone: Radiology Comment on above: Patient Update Appointment Start: 04-24-2022 Telephone encounter Leandro Brown RN Work Phone: [facility] Comment on above: Home Care (Notificat ion of home health agency discharge.) Start: 04-23-2022 End: 04-23-2022 Home visit Doris Rivera RN Work Phone: [facility] Comment on above: SN AGENCY DC W VISIT Start: 04-22-2022 End: 04-22-2022 Office outpatient visit 10 minutes Katy Faust MD Work Phone: Internal Medicine [place] Comment on above: Iron deficiency anem ia, unspecified iron deficiency anemia type (Primary Dx); 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); History of hepatitis B; History of anemia; Status post coronary artery bypass graft; Dyslipidemia Start: 04-22-2022 End: 04-22-2022 Home visit Estefany Stern PT Work Phone: [facility] Comment on above: PT DISC DC W VISIT Start: 04-21-2022 End: 04-21-2022 Home visit Isela Acharya SPORTS EDITOR Work Phone: [facility] Comment on above: SPORTS EDITOR ROUTINE Start: 04-17-2022 End: 04-17-2022 Home visit Isela Patrizia SPORTS EDITOR Work Phone: [facility] Comment on above: SPORTS EDITOR ROUTINE CARE COORDINATION Start: 04-15-2022 End: 04-15-2022 Home visit Isela Acharya SPORTS EDITOR Work Phone: [facility] Comment on above: SPORTS EDITOR ROUTINE Start: 04-13-2022 Telephone encounter Terry Balderrama MD Work Phone: Vascular Medicine Comment on above: Patient Update Start: 04-13-2022 End: 04-13-2022 Home visit Britta Mantilla RN Work Phone: [facility] Comment on above: SN ROUTINE Start: 04-09-2022 End: 04-09-2022 Home visit Britta Mantilla RN Work Phone: [facility] Comment on above: SN ROUTINE Start: 04-08-2022 ambulatory Norm Parker APRN.SOYBEAN GROWER Work Phone: [facility] [place] Comment on above: Results Start: 04-08-2022 E-mail encounter fro m caregiver Norm Parker APRN.[employer]YBEAN GROWER Work Phone: [facility] [place] Start: 04-07-2022 Telephone encounter Norm Calderon er MAIL ROOM CLERK.SOYBEAN GROWER Work Phone: [facility] [place] Comment on above: Critical Results (/) Start: 04-07-2022 End: 04-07-2022 Home visit Isela Acharya SPORTS EDITOR Work Phone: [facility] Comment on above: SPORTS EDITOR ROUTINE Start: 04-06-2022 End: 04-06-2022 Patient encounter procedure Norm Parker MAIL ROOM CLERK.SOYBEAN GROWER Work Phone: [facility] [place] Comment on above: Rectal malignant gila plasm (HCC) (Primary Dx); Malignant neoplasm of colon, unspecified part of colon (HCC); 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); Bilateral pulmonary embolism (HCC); Blood loss; Anemia, unspecified type; Hyperlipidemia, unspecified hyperlipidemia type; Special screening examination for viral disease; Encounter to establish care; Encounter for therapeutic drug monitoring Start: 04-06-2022 End: 04-06-2022 Home visit Britta Mantilla RN Work Phone: [facility] Comment on above: SN ROUTINE Start: 04-03-2022 End: 04-03-2022 Home visit Isela Acharya SPORTS EDITOR Work Phone: [facility] Comment on above: SPORTS EDITOR ROUTINE Start: 04-02-2022 Non-patient / Non-visit No [facility] Physician [facility] [facility] Start: 04-02-2022 End: 04-02-2022 Home visit Britta Mantilla RN Work Phone: [facility] Comment on above: SN ROUTINE Start: 04-02-2022 Non-patient / Non-visit No [facility] Physician [facility] Start: 04-02-2022 End: 04-02-2022 ambulatory No Primary Care Physician [facility] Work Phone: Start: 04-02-2022 End: 04-02-2022 Patient encounter procedure No Primary Care Physician [facility] Start: 03-31-2022 End: 03-31-2022 Home visit Isela Acharya SPORTS EDITOR Work Phone: [facility] Comment on above: SPORTS EDITOR ROUTINE Start: 03-31-2022 Telephone encounter I Dutch rangel MD Work Phone: Colorectal Surgery Comment on above: Physical Therapist Technician - O ther Start: 03-30-2022 End: 03-30-2022 Home visit Britta Mantilla RN Work Phone: [facility] Comment on above: SN ROUTINE Start: 03-27-2022 End: 03-27-2022 Home visit Isela Acharya SPORTS EDITOR Work Phone: [facility] Comment on above: SPORTS EDITOR ROUTINE Start: 03-26-2022 Telephone encounter Doris Rivera RN Work Phone: [facility] Comment on above: Home Care [...] Home visit Doris Rivera RN Work Phone: [facility] Comment on above: SN ROUTINE Start: 03-25-2022 End: 03-25-2022 Home visit Isela Acharya SPORTS EDITOR Work Phone: [facility] Comment on above: SPORTS EDITOR ROUTINE Start: 03-24-2022 End: 03-24-2022 Home visit Britta Mantilla RN Work Phone: [facility] Comment on above: SN ROUTINE [...] 03-19-2022 End: 03-19-2022 Home visit Isela Acharya SPORTS EDITOR Work Phone: [facility] Comment on above: SPORTS EDITOR ROUTINE SN ROUTINE Start: 03-18-2022 End: 03-18-2022 Patient encounter procedure Russ Monteiro MD Work Phone: Internal Medicine [place] Comment on above: Anemia, unspecified type (Primary Dx); Pulmonary embolism and infarction (HCC); Hypokalemia; 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); Generalized weakness Start: 03-15-2022 End: 03-15-2022 Home visit Britta Mantilla RN Work Phone: [facility] Comment on above: SN ROUTINE Start: 03-14-2022 Home visit Savanna Galan RN Work Phone: [facility] Comment on above: CARE COORDINATION Start: 03-12-2022 Telephone encounter Leandro Brown RN Work Phone: [facility] Comment on above: Home Care (Need for home care SN EVAL for ostomy teaching and care. ) Start: 03-12-2022 End: 03-12-2022 Home visit Estefany Stern PT Work Phone: [facility] Comment on above: PT NORRIS Start: 03-05-2022 Telephone encounter Leandro Brown RN Work Phone: [facility] Comment on above: Home Care (Notificat ion of hospitalization.) Start: 03-04-2022 Telephone encounter Tejal bhakta BIOLOGIST AIDE Work Phone: [facility] Comment on above: Home Care (Pt confir mation call ) Start: 03-03-2022 Telephone encounter Holly fernandez BIOLOGIST AIDE Work Phone: [facility] Comment on above: Home Care ( to pinky spangler) Start: 03-03-2022 End: 03-06-2022 Home visit Leandro Cruz RN Work Phone: [facility] Comment on above: SN TRANSFER Start: 03-01-2022 End: 03-02-2022 Emergency department patient visit No Primary Care Physician [facility] Start: 03-01-2022 ambulatory Deborah Myerson RN NURSE DURALUMIN MECHANIC Comment on above: Chest Pain Start: 02-27-2022 End: 02-27-2022 Emergency department patient visit No Primary Care Physician [facility] Start: 02-26-2022 End: 02-26-2022 Home visit Estefany Stern PT Work Phone: [facility] Comment on above: PT EVAL Start: 02-26-2022 Non-patient / Non-visit No Nalini tovar [place] [facility] Physician [facility] [facility] Start: 02-25-2022 End: 02-25-2022 Home visit Jovanna Heaton RN Work Phone: [facility] Comment on above: SN SOC Start: 02-11-2022 Telephone encounter Radha jackson Work Phone: [facility] Comment on above: Home Care (Confirmat ion Call ) Home Care (MD sebastien spangler ) Start: 2022 Telephone encounter Tejal bhakta LPN Work Phone: [facility] Comment on above: Erroneous encounter- disregard Start: 02-03-2022 Orders Only I Dutch Cheung MD Work Phone: Colorectal Surgery Comment on above: Rectal cancer (HCC) (Primary Dx) Start: 02-01-2022 ambulatory Robert Bullock APRN.SOYBEAN GROWER Work Phone: Critical Care Start: 02-01-2022 End: 02-01-2022 Emergency department patient visit No Primary Care Physician [facility] Start: 01-30-2022 End: 01-30-2022 Home visit Leandro Cruz RN Work Phone: [facility] Comment on above: CARE COORDINATION SN SOC Start: 01-28-2022 Telephone encounter Radha jackson Work Phone: [facility] Comment on above: Home Care (Confirmat ion Call ) Start: 01-16-2022 Non-patient / Non-visit No Nalini tovar Care Physician [facility] Start: 01-16-2022 End: 01-16-2022 ambulatory No Primary Care Physician [facility] Work Phone: Start: 01-16-2022 End: 01-16-2022 Patient encounter procedure No Primary Care Physician [facility] Start: 01-13-2022 Telephone encounter Kristel Moreira PA-C Work Phone: Pre Anesthesia Comment on above: Pre-Op Update Start: 01-12-2022 Telephone encounter Calista Mixon RN Pre Anesthesia Comment on above: PACC Start: 01-09-2022 End: 01-09-2022 Patient encounter procedure No Primary Care Physician [facility] [facility] Start: 01-07-2022 End: 01-07-2022 Orders Only Eric Hernandez MD Work Phone: Cardiology Comment on above: Pre-operative cleara nce (Primary Dx) Pre-op evaluation (P rimary Dx); 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 moore[place]ough heart without angina pectoris; Bilateral carotid artery [...] Dx) Start: 08-29-2021 End: 08-29-2021 Follow-up encounter aMrisela Rome MD Work Phone: Radiation Oncology Comment on above: Radiotherapy follow- up (Primary Dx); Anal squamous cell carcinoma (HCC) Start: 08-29-2021 End: 08-29-2021 Telemedicine consultation with patient Marisela Rome MD, MD Work Phone: [facility] [employer] Start: 07-22-2021 ambulatory Alexia edgar APRN.SOYBEAN GROWER Work Phone: Hematology/Oncology Comment on above: MRI and visit with Scott Ambrocio Start: 07-21-2021 ambulatory Marisela Rome MD Work Phone: Radiation Oncology Comment on above: Patient Education Start: 07-21-2021 Patient encounter procedure Marisela Rome MD, MD Work Phone: [facility] [employer] Start: 07-21-2021 Radiation Oncology Note Avril Rome MD Work Phone: Radiation Oncology Comment on above: Completion Note Start: 07-18-2021 End: 07-18-2021 ambulatory Alexia Rao APRN.[employer]YBEAN GROWER Work Phone: Hematology/Oncology Comment on above: Rectal malignant gila plasm (HCC) (Primary Dx); Anal squamous cell carcinoma (HCC) Start: 07-18-2021 End: 07-18-2021 Patient encounter procedure Alexia Rao APRN.SOYBEAN GROWER Work Phone: [facility] Comment on above: Appointment Start: 07-18-2021 Telephone encounter Alexia antonio APRN.SOYBEAN GROWER Work Phone: Hematology/Oncology Comment on above: Future [...] Dx) Start: 07-07-2021 Telephone encounter Alexia antonio APRN.SOYBEAN GROWER Work Phone: Hematology/Oncology Comment on above: Orders Start: 07-07-2021 End: 07-07-2021 ambulatory [facility] Work Phone: Hematology/Oncology Comment on above: Rectal malignant gila plasm (HCC) (Primary Dx); 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) Start: 07-04-2021 End: 07-04-2021 ambulatory Alexia Rao MAIL ROOM CLERK.[employer]YBEAN GROWER Work Phone: Hematology/Oncology Comment on above: Rectal malignant gila plasm (HCC) (Primary Dx) Start: 07-04-2021 End: 07-04-2021 Patient encounter procedure Alexia Rao MAIL ROOM CLERK.SOYBEAN GROWER Work Phone: [facility] Start: 07-01-2021 End: 07-01-2021 Specialty Pharmacy Joss[facility] Comment on above: SPP Oral Oncology/he matology - Medication Refill (Capecitabine x 2) Refill Request Anal squamous cell c arcinoma (HCC) (Primary Dx) Start: 06-30-2021 End: 06-30-2021 ambulatory [facility] [facility] Work Phone: Hematology/Oncology Comment on above: [...] Start: 06-23-2021 End: 06-23-2021 ambulatory [facility] [facility] Work Phone: Hematology/Oncology Comment on above: Rectal malignant gila plasm (HCC); Anal squamous cell carcinoma (HCC) Start: 06-18-2021 End: 06-18-2021 ambulatory Helen Lakhani DO Work Phone: Hematology/Oncology Comment on above: Rectal malignant gila plasm (HCC) (Primary Dx) Start: 06-18-2021 End: 06-18-2021 Patient encounter procedure Helen Lakhani DO Work Phone: [facility] Start: 06-17-2021 End: 06-17-2021 Patient encounter procedure Marisela Rome MD Work Phone: Radiation Oncology Comment on above: Anal squamous cell c arcinoma (HCC) (Primary Dx) Start: 06-17-2021 Telephone encounter Amelia Souza RN He matology/Oncology Comment on above: Physical Therapist Technician - O ther (Follow-up ) Start: 06-16-2021 End: 06-16-2021 ambulatory [facility] [facility] Work Phone: Hematology/Oncology Comment on above: [...] Start: 06-09-2021 End: 06-09-2021 [facility] Start: 06-06-2021 Telephone encounter Helen connelly DO Work Phone: Hematology/Oncology Comment on above: Follow Up Start: 06-06-2021 End: 06-06-2021 ambulatory Helen Lakhani DO Work Phone: Hematology/Oncology Comment on above: Rectal malignant gila plasm (HCC) (Primary Dx) Start: 06-06-2021 End: 06-06-2021 Patient encounter procedure Helen Lakhani DO Work Phone: [facility] Start: 06-04-2021 Orders Only Marisela Rome MD Work Phone: Radiation Oncology Comment on above: Prostate cancer (HCC ) (Primary Dx) Erroneous encounter- disregard Start: 06-03-2021 Refill Caty Bowens MD Work Phone: Hematology/Oncology Comment on above: Refill Request Start: 06-02-2021 ambulatory Milly George [facility] Start: 06-02-2021 End: 06-02-2021 Patient encounter procedure Milly George [facility] Comment on above: SPP Oral Oncology/he matology - Treatment Referral (Capecitabine 500mg) Rectal malignant gila plasm (HCC) (Primary Dx) Start: 06-02-2021 Radiation Oncology Note Avril Rome MD Work Phone: Radiation Oncology Comment on above: Simulation Note Treatment Planning Start: 05-30-2021 ambulatory Milly George [facility] Start: 05-30-2021 Patient encounter procedure Milly [...] procedure Caty Bowens MD Work Phone: [facility] Comment on above: Rectal malignant gila plasm (HCC) (Primary Dx); Anal squamous cell carcinoma (HCC) Start: 02-10-2021 Office outpatient vi sit 15 minutes No PCP None [facility] Work Phone: Start: 08-12-2020 Office outpatient ne w 45 minutes No PCP None HW[facility]optviv[facility]hx[facility] Work Phone: Evaluation finding No PCP None [facility] Work Phone: Procedures Date Procedure Procedure [...] pelvis w/o & w/contrast material Alexia Rao APRN.[employer]YBEAN GROWER Work Phone: Start: 09-17-2021 Sigmoidoscopy flx dx [...] post coronary artery bypass graft Norm Parker MAIL ROOM CLERK.[employer]YBEAN GROWER Work Phone: SARS-CoV-2 & FLU Ant igen (Rapid) No Primary Care Physician SARS-CoV-2 & FLU Ant igen (Rapid) No Primary Care Physician Tonsillectomy No PCP None Viral antigen assay No Prima ry Care Physician Viral antigen assay No Prima ry Care Physician Plan of Treatment Date Care Activity Detail Author Start: 06-04-2032 Colonoscopy COLONOSCOPY [facility] Start: 06-04-2032 COLORECTAL CANCER SCREENING COLORECTAL CANCER SCREENING [facility] Start: 06-04-2032 Screening for malign ant neoplasm of colon [facility] Start: 03-20-2031 Colonoscopy COLONOSCOPY [facility] Start: 03-20-2031 COLORECTAL CANCER SCREENING COLORECTAL CANCER SCREENING [facility] Start: 04-06-2027 Lipid 1996 panel - S chad or Plasma Lipid Screening [facility] Start: 04-06-2027 Lipid panel Lipid Screening [facility] Start: 04-06-2027 LIPID SCREEN LIPID SCREEN [facility] Start: 12-17-2026 DTaP/Tdap/Td Vaccine s (2 - Td or Tdap) DTaP/Tdap/Td Vaccines (2 - Td or Tdap) [facility] Start: 12-17-2026 Urine microalbumin profile [facility] Start: 12-10-2026 Screening for malign ant neoplasm of colon Sigmoidoscopy [facility] Start: 12-10-2026 SIGMOIDOSCOPY SIGMOIDOSCOPY [facility] Start: 09-21-2026 Diabetes Screening Diabetes Screenin g [facility] Start: 09-17-2026 SIGMOIDOSCOPY SIGMOIDOSCOPY [facility] Start: 11-11-2025 Diabetes Screening Diabetes Screenin g [facility] Start: 08-15-2025 Annual PCP Team Motorcycle Assembler isidra Disease Visit Annual PCP Team Chronic Disease Visit [facility] Start: 07-07-2025 DIABETES SCREEN DIABETES SCREEN [facility] Start: 07-05-2025 Annual PCP Team Motorcycle Assembler isidra Disease Visit Annual PCP Team Chronic Disease Visit [facility] Start: 05-31-2025 Annual PCP Team Motorcycle Assembler isidra Disease Visit Annual PCP Team Chronic Disease Visit [facility] Start: 05-20-2025 DIABETES SCREEN DIABETES SCREEN [facility] Start: 04-22-2025 DIABETES SCREEN DIABETES SCREEN [facility] Start: 04-06-2025 DIABETES SCREEN DIABETES SCREEN [facility] Start: 03-18-2025 DIABETES SCREEN DIABETES SCREEN [facility] Start: 03-10-2025 DIABETES SCREEN DIABETES SCREEN [facility] Start: 03-06-2025 DIABETES SCREEN DIABETES SCREEN [facility] Start: 03-04-2025 DIABETES SCREEN DIABETES SCREEN [facility] Start: 03-03-2025 DIABETES SCREEN DIABETES SCREEN [facility] Start: 02-11-2025 DIABETES SCREEN DIABETES SCREEN [facility] Start: 2025 DIABETES SCREEN DIABETES SCREEN [facility] Start: 2025 RSV Vaccine (1 - 1-d ose 75+ series) RSV Vaccine (1 - 1-dose 75+ series) [facility] Start: 02-04-2025 DIABETES SCREEN DIABETES SCREEN [facility] Start: 02-03-2025 DIABETES SCREEN DIABETES SCREEN [facility] Start: 01-27-2025 DIABETES SCREEN DIABETES SCREEN [facility] Start: 01-07-2025 DIABETES SCREEN DIABETES SCREEN [facility] Start: 01-03-2025 Annual PCP Team Motorcycle Assembler isidra Disease Visit Annual PCP Team Chronic Disease Visit [facility] Start: 01-03-2025 Covid-19 Vaccine ( season) Covid-19 Vaccine ( season) [facility] Comment on above: Postponed from 10/30 (Declined at this time) Start: 01-03-2025 RSV Vaccine (1 - Ris k 60-74 years 1-dose series) RSV Vaccine (1 - Risk 60-74 years 1-dose series) [facility] Comment on above: Postponed from 02/09 (Declined at this time) Start: 12-25-2024 End: 12-25-2024 Patient encounter procedure 12/25/2024 1:00 PM EDT Office Visit [facility] [place] [address] [place] [address] Srinivasan Da Silva APRN.SPECIAL EVENTS COORDINATOR [address] [place], [place] [address] pre op clearance appt per Dr. Siddiqui. surgery is 01/02/25. [facility] [place] Comment on above: pre op clearance daisha t per Dr. Siddiqui. surgery is 01/02/25. Start: 11-29-2024 Annual PCP Team Motorcycle Assembler isidra Disease Visit Annual PCP Team Chronic Disease Visit [facility] Start: 11-29-2024 End: 11-29-2024 Evaluation of diagnostic study results [facility] Start: 10-30-2024 Influenza vaccination [facility] Start: 08-28-2024 Influenza vaccination Influenza Vacc ine (#1) [facility] Comment on above: Postponed from 10/30 (Declined at this time) Start: 07-31-2024 End: 07-31-2024 Nursing evaluation of patient and report 07/31/2024 8:15 AM EDT Nurse Visit Colorectal Surgery [address] [id number] Therapy, St[address] [place] [id number] stoma nurse, has an ulcer next to stoma Colorectal Surgery Comment on above: stoma nurse, has an ulcer next to stoma Start: 07-17-2024 End: 07-17-2024 Nursing evaluation of patient and report 07/17/2024 8:15 AM EDT Nurse Visit Colorectal Surgery [address] [id number] Therapy, Stoma [address] [place] [address] stoma nurse, has an ulcer next to stoma Colorectal Surgery Comment on above: stoma nurse, has an ulcer next to stoma Start: 07-14-2024 DIABETES SCREEN DIABETES SCREEN [facility] Start: 07-07-2024 DIABETES SCREEN DIABETES SCREEN [facility] Start: 07-06-2024 Patient referral [facility] Work Phone: Start: 07-05-2024 End: 07-05-2024 Patient encounter procedure 07/05/2024 8:00 AM EDT Office Visit [facility] [place] [address] [place], [place] [address] Norm Parkre APRN.[employer]OWER [address] [place] [address] ulcer near stoma [facility] [place] Comment on above: ulcer near stoma Start: 06-30-2024 DIABETES SCREEN DI[facility]ETES SCREEN [facility] Start: 06-23-2024 DIABETES SCREEN [facility]ET[facility]CREEN [facility] Start: 06-16-2024 DIABETES SCREEN [facility] Start: 06-09-2024 DIABETES SCREEN [facility]EN [facility] Start: 05-31-2024 End: 05-31-2024 Patient encounter procedure 05/31/2024 3:40 PM EDT Office Visit [facility] [place] [address] [place], [place] [phone] Katy Faust MD [address] [place] [address] Hospital follow up with patient update [facility] [place] Comment on above: Hospital follow up w ith patient update Start: 04-30-2024 DIABETES SCREEN [facility] Start: 04-25-2024 [facility] Start: 04-21-2024 Patient referral [facility] Work Phone: Start: 04-12-2024 End: 04-12-2024 Clinical Support [facility] Start: 03-01-2024 Advance Directive Discussion Advance Directive Discussion [facility] Start: 01-04-2024 End: 01-04-2024 Patient encounter procedure 01/04/2024 2:40 PM EST Office Visit [facility] [place] [address] [place], [place] [phone] Norm Parker APRN.[employer] [address] [place], [place] [phone] Pre op clearance [facility] [place] Comment on above: Pre op clearance Start: 11-30-2023 End: 11-30-2023 Patient encounter procedure 11/30/2023 10:00 AM EDT Office Visit [facility] Medicine [place] [address] [place] [address] Norm Parker APRN.[employer] [address] [place] [address] left shoulder pain [facility] [place] Comment on above: left shoulder pain Start: 10-31-2023 Covid-19 Vaccine ( season) Covid-19 Vaccine ( season) [facility] Start: 10-31-2023 Covid-19 Vaccine () Covid-19 Vaccine () [facility] Start: 10-31-2023 Influenza vaccination [facility] Start: 09-30-2023 End: 09-30-2023 Admission to same [...] 5:50 PM EDT Appointment MRI Q [address] [address] History of rectal cancer [Z85.048] MRI Q Comment on above: History of rectal ca ncer [Z85.048] Start: 09-22-2023 Subsequent hospital visit by physician 09/22/2023 5:19 PM EDT Hospital Encounter MRI Q [address] [address] History of rectal cancer [Z85.048] MRI Q Comment on above: History of rectal ca ncer [Z85.048] Start: 09-22-2023 End: 09-22-2023 Anesthesia consultation 09/22/2023 2:50 PM EDT PAT Pre Anesthesia [address] [place] [id number] 1, [address] [place] [id number] pre op Pre Anesthesia Comment on above: pre op Start: 08-03-2023 End: 11-02-2023 CBC panel - Blood by Automated count COMPLETE BLOOD COUNT Lab Routine History of rectal cancer Expected: 08/03/2023 (Approximate), Expires: 11/02/[address] [facility] Work Phone: Comment on above: Expected: 08/03/2023 (Approximate), Expires: 11/02/2023 Start: 08-03-2023 End: 11-02-2023 Comprehensive metabolic 2000 panel - Serum or Plasma COMPREHENSIVE METABOLIC PANEL Lab Routine History of rectal cancer Expected: 08/03/2023 (Approximate), Expires: 11/02/2023 [facility] Comment on above: Expected: 08/03/2023 (Approximate), Expires: 11/02/2023 Start: 08-03-2023 End: 11-02-2023 CONFIRM BLOOD TYPE CONFIRM BLOOD TYPE Blood Bank Routine History of rectal cancer Expected: 08/03/2023 (Approximate), Expires: 11/02/2023 [facility] Comment on above: Expected: 08/03/2023 (Approximate), Expires: 11/02/2023 Start: 08-03-2023 End: 11-02-2023 TYPE AND SCREEN,30 DAY TYPE AND SCREEN,30 DAY Blood Bank Routine History of rectal cancer Expected: 08/03/2023 (Approximate), Expires: 11/02/2023 [facility] Comment on above: Expected: 08/03/2023 (Approximate), Expires: 11/02/2023 Start: 07-28-2023 End: 07-28-2023 Follow-up encounter 07/28/2023 4:[address] [facility] Colorectal Surgery [address] [address] Ramiro Cheung MD [address] [place] [address] FOLLOW UP Colorectal Surgery Comment on above: FOLLOW UP Start: 07-22-2023 End: 07-22-2023 Patient encounter procedure 07/22/2023 3:00 PM EDT Office Visit Podiatry [address] [place], [place] [address] Jerodmartha Kee [address] [place], [place] [phone] Ingrown nail of great toe [L60.0] Podiatry Comment on above: Ingrown nail of grea t toe [L60.0] Start: 07-18-2023 ANNUAL PCP TEAM PRESCHOOL TEACHER AIDE ISIDRA DISEASE VISIT ANNUAL PCP TEAM CHRONIC DISEASE VISIT [facility] Start: 07-08-2023 ANNUAL PCP TEAM PRESCHOOL TEACHER AIDE ISIDRA DISEASE VISIT ANNUAL PCP TEAM CHRONIC DISEASE VISIT [facility] Start: 07-08-2023 [facility] Start: 06-11-2023 [facility] Start: 06-11-2023 CT of head without contrast Brain/Head without Contrast [facility] Start: 06-11-2023 CT Unspecified body region WO contrast [facility] Start: 05-05-2023 Patient referral [facility] Work Phone: Start: 04-22-2023 ANNUAL PCP TEAM PRESCHOOL TEACHER AIDE ISIDRA DISEASE VISIT ANNUAL PCP TEAM CHRONIC DISEASE VISIT [facility] Start: 04-22-2023 COVID-19 VACCINE (#1) COVID-19 VACCI NE (#1) [facility] Comment on above: Postponed from 08/10 (Declined at this time) Start: 04-22-2023 Pneumococcal Vaccine : 65+ (1 - PCV) Pneumococcal Vaccine: 65+ (1 - PCV) [facility] Comment on above: Postponed from 02/09 (Declined at this time) Start: 04-22-2023 Pneumococcal Vaccine : 65+ (1 of 1 - PCV) Pneumococcal Vaccine: 65+ (1 of 1 - PCV) [facility] Comment on above: Postponed from 02/09 (Declined at this time) Start: 04-22-2023 PNEUMOCOCCAL: 65+ (1 - PCV) PNEUMOCOCCAL: 65+ (1 - PCV) [facility] Comment on above: Postponed from 02/09 (Declined at this time) Postponed from 02/09 (Declined at this time) Start: 04-22-2023 SHINGRIX VACCINE (1 of 2) OLIVA GRIX VACCINE (1 of 2) [facility] Comment on above: Postponed from 02/09 (Declined at this time) Postponed from 02/09 (Declined at this time) Start: 04-07-2023 Influenza vaccination [facility] Comment on above: Postponed from 10/30 (Declined at this time) Start: 04-06-2023 ANNUAL PCP TEAM PRESCHOOL TEACHER AIDE ISIDRA DISEASE VISIT ANNUAL PCP TEAM CHRONIC DISEASE VISIT [facility] Start: 04-06-2023 Hepatitis B surface antibody level LDL CHOLESTEROL [facility] Start: 04-03-2023 BP CONTROLLED (<130/80) BP CONTROLLE D (<130/80) [facility] Start: 04-02-2023 BP CONTROLLED (<130/80) BP CONTROLLE D (<130/80) [facility] Start: 03-31-2023 BP CONTROLLED (<130/80) BP CONTROLLE D (<130/80) [facility] Start: 03-31-2023 End: 03-31-2023 Clinical Support [facility] Start: 03-27-2023 BP CONTROLLED (<130/80) BP CONTROLLE D (<130/80) [facility] Start: 03-25-2023 BP CONTROLLED (<130/80) BP CONTROLLE D (<130/80) [facility] Start: 03-23-2023 BP CONTROLLED (<130/80) BP CONTROLLE D (<130/80) [facility] Start: 03-19-2023 BP CONTROLLED (<130/80) BP CONTROLLE D (<130/80) [facility] Start: 03-18-2023 ANNUAL PCP TEAM PRESCHOOL TEACHER AIDE ISIDRA DISEASE VISIT ANNUAL PCP TEAM CHRONIC DISEASE VISIT [facility] Start: 03-18-2023 BP CONTROLLED (<130/80) BP CONTROLLE D (<130/80) [facility] Start: 03-12-2023 BP CONTROLLED (<130/80) BP CONTROLLE D (<130/80) [facility] Start: 03-01-2023 Advance Directive Discussion Advance Directive Discussion [facility] Start: 03-01-2023 Behavioral Health Screening Behavioral Health Screening [facility] Start: 03-01-2023 Depression Assessment Depression Ass essment [facility] Start: 01-30-2023 BP CONTROLLED (<130/80) BP CONTROLLE D (<130/80) [facility] Start: 10-30-2022 Covid-19 Vaccine () Covid-19 Vaccine () [facility] Start: 10-30-2022 Influenza vaccination [facility] Start: 10-15-2022 End: 10-02-2023 US LEG VEIN DVT UNL VAS LAB US LEG VEIN DVT UNL VAS LAB Vascular Lab Routine Deep vein thrombosis (DVT) of both lower extremities, unspecified chronicity, unspecified vein (HCC) Localized edema Expected: 10/15/2022 (Approximate), Expires: 10/02/[address] 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 Work Phone: Comment on above: Expected: 10/14/2022 (Approximate), Expires: 10/30/2023 Start: 08-28-2022 Influenza vaccination INFLUENZA (#1) [facility] Comment on above: Postponed from 10/30 (Declined at this time) Start: 07-04-2022 BP CONTROLLED (<130/80) BP CONTROLLE D (<130/80) [facility] Start: 06-16-2022 Adult depression screening assessment DEPRESSION SCREENING [facility] Start: 05-18-2022 End: 07-18-2022 CONFIRM BLOOD TYPE CONFIRM BLOOD TYPE Blood Bank Routine Pre-op evaluation Expected: 05/18/2022, Expires: 07/18/[address] [facility] Work Phone: Comment on above: Expected: 05/18/2022 , Expires: 07/18/2022 Start: 05-18-2022 End: 07-18-2022 TYPE AND SCREEN,30 DAY TYPE AND SCREEN,30 DAY Blood Bank Routine Pre-op evaluation Expected: 05/18/2022, Expires: 07/18/[address] [facility] Work Phone: Comment on above: Expected: 05/18/2022 , Expires: 07/18/2022 Start: 04-22-2022 End: 06-22-2022 Basic metabolic 2000 panel - Serum or Plasma BASIC METABOLIC PNL Lab Routine Encounter for therapeutic drug monitoring Expected: 04/22/2022, Expires: 06/22/[address] [facility] Work Phone: Comment on above: Expected: 04/22/2022 , Expires: 06/22/2022 Start: 04-06-2022 End: 06-06-2022 Comprehensive metabolic 2000 panel - Serum or Plasma [facility] Work Phone: Comment on above: Expected: 04/06/2022 , Expires: 06/06/2022 Start: 04-06-2022 End: 06-06-2022 Hepatitis C virus Ab [Presence] in Serum [facility] Work Phone: Comment on above: Expected: 04/06/2022 , Expires: 06/06/2022 Start: 04-06-2022 End: 06-06-2022 Iron and Iron binding capacity panel - Serum or Plasma [facility] Work Phone: Comment on above: Expected: 04/06/2022 , Expires: 06/06/2022 Start: 04-06-2022 End: 06-06-2022 Lipid 1996 panel - Serum or Plasma [facility] Work Phone: Comment on above: Expected: 04/06/2022 , Expires: 06/06/2022 Start: 03-01-2022 [facility] Start: 03-01-2022 ADVANCE DIRECTIVE DISCUSSION ADVANCE DIRECTIVE DISCUSSION [facility] Start: 03-01-2022 DEPRESSION ASSESSMENT DEPRESSION ASS ESSMENT [facility] Start: 2022 FUV, Provider: Gisela Genao, Status: Pen, Time: 9:45 AM FUV, Provider: Gisela Genao, Status: Pen, Time: 9:45 AM [facility] [address] Work Phone: Start: 2022 DUALRISSA, Provider: Thais Arroyo, Status: Pen, Time: 9:00 AM DUALRISSA, Provider: Thais Arroyo, Status: Pen, Time: 9:00 AM [facility] [address] Work Phone: Start: 02-01-2022 Leukocyte reduced re d blood cells [facility] Work Phone: Start: 02-01-2022 [facility] Work Phone: Start: 02-01-2022 Administration of bl ood product [facility] Start: 02-01-2022 Transfusion of red b lood cells [facility] Start: 02-01-2022 Blood culture [facility] Work Phone: Start: 02-01-2022 Blood culture [facility] Work Phone: Start: 10-30-2021 Influenza vaccination [facility] Start: 07-09-2021 End: 09-08-2021 Urinalysis complete panel - Urine [facility] Work Phone: Comment on above: Expected: 07/09/2021 , Expires: 09/08/2021 Start: 06-17-2021 End: 08-17-2021 Bacteria identified in Urine by Culture URINE CULTURE Microbiology Routine Rectal malignant neoplasm (HCC) Dysuria Expected: 06/17/2021, Expires: 08/17/[address] [facility] Work Phone: Comment on above: Expected: 06/17/2021 , Expires: 08/17/2021 Start: 06-17-2021 End: 08-17-2021 Urinalysis complete panel - Urine URINALYSIS, WITH MICROSCOPIC Lab Routine Rectal malignant neoplasm (HCC) Dysuria Expected: 06/17/2021, Expires: 08/17/[address] [facility] Work Phone: Comment on above: Expected: 06/17/2021 , Expires: 08/17/2021 Start: 06-06-2021 End: 08-06-2021 Carcinoembryonic Ag [Mass/volume] in Serum or Plasma CEA BLD Lab Routine Rectal malignant neoplasm (HCC) Expected: 06/06/2021, Expires: 08/06/[address] [facility] Work Phone: Comment on above: Expected: 06/06/2021 , Expires: 08/06/2021 Start: 06-06-2021 End: 08-06-2021 CBC W Auto Differential panel - Blood CBC + DIFF Lab Routine Rectal malignant neoplasm (HCC) Expected: 06/06/2021, Expires: 08/06/[address] [facility] Work Phone: Comment on above: Expected: 06/06/2021 , Expires: 08/06/2021 Start: 06-06-2021 End: 08-06-2021 Comprehensive metabolic 2000 panel - Serum or Plasma COMP METABOLIC PANEL Lab Routine Rectal malignant neoplasm (HCC) Expected: 06/06/2021, Expires: 08/06/[address] [facility] Work Phone: Comment on above: Expected: 06/06/2021 , Expires: 08/06/2021 Start: 06-04-2021 End: 08-04-2021 Prostate specific Ag [Mass/volume] in Serum or Plasma [facility] Work Phone: Comment on above: Expected: 06/04/2021 , Expires: 08/04/2021 Start: 05-29-2021 End: 07-29-2021 DPYD GENOTYPING [facility] Work Phone: Comment on above: Expected: 05/29/2021 , Expires: 07/29/2021 Start: 03-01-2021 ADVANCE DIRECTIVE DISCUSSION ADVANCE DIRECTIVE DISCUSSION [facility] Start: 01-01-2022 DEPRESSION ASSESSMENT DEPRESSION ASS ESSMENT [facility] Start: 02-10-2021 FUV, Provider: Gisela Genao, Status: Pen, Time: 2:30 PM FUV, Provider: Gisela Genao, Status: Pen, Time: 2:30 PM [facility] Work Phone: Start: 02-10-2021 DUALAUDIO, Provider: Ace Mason, Status: Pen, Time: 2:00 PM DUALAUDIO, Provider: Ace Mason, Status: Pen, Time: 2:00 PM [facility] [address] Work Phone: Start: 10-30-2020 Influenza vaccination INFLUENZA (#1) [facility] Start: 05-05-2017 Adult depression screening assessment DEPRESSION SCREENING [facility] Start: 2015 Pneumococcal Vaccine : 65+ (1 of 1 - PCV) Pneumococcal Vaccine: 65+ (1 of 1 - PCV) [facility] Start: 2015 Pneumococcal Vaccine : 65+ Years (1 - PCV) Pneumococcal Vaccine: 65+ Years (1 - PCV) [facility] Start: 2015 Pneumococcal Vaccine : 65+ Years (1 of 1 - PCV) Pneumococcal Vaccine: 65+ Years (1 of 1 - PCV) [facility] Start: 2015 PNEUMOVAX AGE 65 AND OVER WITH 5YR LOOKBACK (#1) PNEUMOVAX AGE 65 AND OVER WITH 5YR LOOKBACK (#1) [facility] Start: 01-29-2015 Medicare Annual Well ness Visit Medicare Annual Wellness Visit [facility] Start: 2010 Hepatitis B Vaccines (1 of 3 - Risk 3-dose series) Hepatitis B Vaccines (1 of 3 - Risk 3-dose series) [facility] Start: 2010 RSV High Risk: (Elde rly (60+) or Population) (1 - Risk 60-74 years 1-dose series) RSV High Risk: (Elderly (60+) or Population) (1 - Risk 60-74 years 1-dose series) [facility] Start: 2010 RSV Immunization age d 60 or older (1 - 1-dose 60+ series) RSV Immunization aged 60 or older (1 - 1-dose 60+ series) [facility] Start: 2010 RSV Vaccine (1 - 1-d ose 60+ series) RSV Vaccine (1 - 1-dose 60+ series) [facility] Start: 2010 RSV Vaccine (1 - Ris k 60-74 years 1-dose series) RSV Vaccine (1 - Risk 60-74 years 1-dose series) [facility] Start: 02-10-2000 Pneumococcal vaccination Pneum ococcal Vaccine (1 of 1 - PCV) [facility] Start: 02-10-2000 Pneumococcal Vaccine : 50+ (1 of 1 - PCV) Pneumococcal Vaccine: 50+ (1 of 1 - PCV) [facility] Start: 02-10-2000 SHINGRIX VACCINE (1 of 2) OLIVA GRIX VACCINE (1 of 2) [facility] Start: 02-10-2000 Zoster Vaccines (1 of 2) Zoster Vacc gary (1 of 2) [facility] Start: 1995 COLOGUARD (FIT-DNA) COLOGUARD (FIT-D NA) [facility] Start: [address] COLONOGRAPHY [facility] Start: 1995 FECAL OCCULT BLOOD FECAL OCCULT BLOO D [facility] Start: 1995 Screening for malign ant neoplasm of colon [facility] Start: 1995 SIGMOIDOSCOPY SIGMOIDOSCOPY [facility] Start: 1985 LIPID SCREEN LIPID SCREEN [facility] Start: 1969 Hepatitis A Vaccines (1 of 2 - Risk 2-dose series) Hepatitis A Vaccines (1 of 2 - Risk 2-dose series) [facility] Start: 1969 SHINGRIX VACCINE (1 of 2) OLIVA GRIX VACCINE (1 of 2) [facility] Start: 1969 Urine microalbumin profile DTAP,TDAP,TD (1 - Tdap) [facility] Start: 02-10-1968 ANNUAL PCP TEAM PRESCHOOL TEACHER AIDE ISIDRA DISEASE VISIT ANNUAL PCP TEAM CHRONIC DISEASE VISIT [facility] Start: 02-10-1968 Anxiety Screening Anxiety Screening [facility] Start: 02-10-1968 BP CONTROLLED (<130/80) BP CONTROLLE D (<130/80) [facility] Start: 02-10-1968 Depression Screening Depression Scre ening [facility] Start: 02-10-1968 Diabetes mellitus screening Diabetes Screening [facility] Start: 02-10-1968 Hepatitis B surface antibody level LDL CHOLESTEROL [facility] Start: 02-10-1968 HEPATITIS C SCREENING HEPATITIS C SC NENA [facility] Start: 1962 COVID-19 VACCINE (1) COVID-19 VACCIN E (1) [facility] Start: 1962 Depression Screening Depression Scre [facility] Start: 02-10-1956 PNEUMOCOCCAL: 65+ (1 - PCV) PNEUMOCOCCAL: 65+ (1 - PCV) [facility] Start: 1955 COVID-19 VACCINE (#1) COVID-19 VACCI NE (#1) [facility] Start: 1950 COVID-19 VACCINE (#1) COVID-19 VACCI NE (#1) [facility] Start: 1950 ABDOMINAL AORTIC ANE URYSM SCREENING ABDOMINAL AORTIC ANEURYSM SCREENING [facility] Start: 1950 Abdominal aortic ane urysm screening Abdominal Aortic Aneurysm Screening [facility] Start: 1950 Lipid panel Lipid Panel [facility] Start: 1950 Medicare Annual Well ness (AWV) Medicare Annual Wellness (AWV) [facility] Start: 1950 Medicare Annual Well ness Visit Medicare Annual Wellness Visit (AWV) [facility] Start: 1950 Screening for malign ant neoplasm of colon [facility] Ankle brachial press ure index [facility] Work Phone: Anrct xm surg req an es general spi/edrl dx EXAM UNDER ANESTHESIA RECTAL History of rectal cancer [facility] Bacteria identified in Blood by Culture Blood Culture [facility] Work Phone: Blood culture [facility] Work Phone: End: 06-12-2022 CBC W Auto Differential panel - Blood CBC + DIFF Lab STAT Rectal malignant neoplasm (HCC) Anal squamous cell carcinoma (HCC) Once per week for 9 Occurrences starting 06/14/2021 until 06/12/[address] [facility] Work Phone: Comment on above: Once per week for 9 Occurrences starting 06/14/2021 until 06/12/2022 End: 06-12-2022 Comprehensive metabolic 2000 panel - Serum or Plasma COMP METABOLIC PANEL Lab STAT Rectal malignant neoplasm (HCC) Anal squamous cell carcinoma (HCC) Once per week for 9 Occurrences starting 06/14/2021 until 06/12/[address] [facility] Work Phone: Comment on above: Once per week for 9 Occurrences starting 06/14/2021 until 06/12/2022 CONFIRM BLOOD TYPE CONFIRM BLOOD TYPE Blood Bank Routine Pre-op evaluation 05/20/2022 11:00 AM EDT [facility] Work Phone: CT SIM PLANNING RADI ATION ONCOLOGY CT SIM PLANNING RADIATION ONCOLOGY Radiology Routine Rectal malignant neoplasm (HCC) Ordered: 06/04/[address] [facility] Work Phone: Comment on above: Ordered: 06/04/2021 End: 01-07-2023 ECG COMPLETE ECG COMPLETE ECG Routine Pre-operative clearance 1 Occurrences starting 01/07/2022 until 01/07/[address] [facility] Work Phone: Comment on above: 1 Occurrences starti ng 01/07/2022 until 01/07/2023 End: 08-02-2024 ECG COMPLETE ECG COMPLETE ECG Routine History of rectal cancer 1 Occurrences starting 08/03/2023 until 08/02/2024 [facility] Comment on above: 1 Occurrences starti ng 08/03/2023 until 08/02/2024 H&P for surgery H&P FOR SURGERY Procedures Routine History of rectal cancer Ordered: 08/03/2023 [facility] Comment on above: Ordered: 08/03/2023 End: 08-04-2023 INR in Platelet poor plasma by Coagulation assay INR (POC) Lab Routine Acute deep vein thrombosis (DVT) of proximal vein of left lower extremity (HCC) Once per month for 99 Occurrences starting 08/04/2022 until 08/04/[address] [facility] Work Phone: Comment on above: Once per month for 9 9 Occurrences starting 08/04/2022 until 08/04/2023 Insertion picc w/rs& i 5 yr/> IR INSERT PICC LINE >/= 5 YR Radiology Routine Rectal malignant neoplasm (HCC) Ordered: 06/06/[address] [facility] Work Phone: Comment on above: Ordered: 06/06/2021 IR IVC FILTER REMOVAL IR IVC TONO TER REMOVAL Radiology Routine S/P IVC filter Ordered: 11/03/[address] [facility] Work Phone: Comment on above: Ordered: 11/03/2022 End: 06-12-2022 Magnesium [Mass/volume] in Serum or Plasma MAGNESIUM BLD Lab STAT Rectal malignant neoplasm (HCC) Anal squamous cell carcinoma (HCC) Once per week for 9 Occurrences starting 06/14/2021 until 06/12/[address] [facility] [facility] Work Phone: Comment on above: Once per week for 9 Occurrences starting 06/14/2021 until 06/12/2022 End: 09-01-2024 MR Pelvis WO contrast MRI RECTUM WO/W IVCON Radiology Routine History of rectal cancer 1 Occurrences starting 08/03/2023 until 09/01/2024 [facility] Comment on above: 1 Occurrences starti ng 08/03/2023 until 09/01/2024 MR Pelvis WO contrast MRI RECTUM WO/W IVCON Radiology Routine History of rectal cancer 09/22/2023 7:36 PM EDT [facility] Work Phone: End: 08-17-2022 Mri pelvis w/o & w/contrast material MRI RECTUM WO/W IVCON Radiology Routine Rectal malignant neoplasm (HCC) Anal squamous cell carcinoma (HCC) 1 Occurrences starting 07/18/2021 until 08/17/[address] [facility] Work Phone: Comment on above: 1 Occurrences starti ng 07/18/2021 until 08/17/2022 Mri pelvis w/o & w/contrast material MRI RECTUM WO/W IVCON Radiology Routine Rectal malignant neoplasm (HCC) Anal squamous cell carcinoma (HCC) 09/17/2021 5:15 PM EDT [facility] Work Phone: End: 10-25-2022 Mri pelvis w/o & w/contrast material MRI RECTUM WO/W IVCON Radiology Routine Malignant neoplasm of rectum (HCC) 1 Occurrences starting 09/25/2021 until 10/25/[address] [facility] Work Phone: Comment on above: 1 Occurrences starti ng 09/25/2021 until 10/25/2022 Patient Education [facility] Work Phone: Patient referral [facility] Work Phone: End: 08-03-2023 PT panel - Platelet poor plasma by Coagulation assay PROTHROMBIN TIME/PT Lab STAT Acute deep vein thrombosis (DVT) of proximal vein of left lower extremity (HCC) Once per month for 99 Occurrences starting 08/04/2022 until 08/03/[address] [facility] Work Phone: Comment on above: Once per month for 9 9 Occurrences starting 08/04/2022 until 08/03/2023 REFER FOR ADMIT INTERVIEW REFER FOR ADMIT INTERVIEW Procedures Routine History of rectal cancer Ordered: 08/03/2023 [facility] Comment on above: Ordered: 08/03/2023 Sigmoidoscopy flx w/biopsy single/multiple SIGMOIDOSCOPY FLEXIBLE WITH BIOPSY History of rectal cancer [facility] SURGICAL PATHOLOGY SURGICAL PATH OLOGY Lab Routine Rectal cancer (HCC) Ordered: 12/10/[address] [facility] Work Phone: Comment on above: Ordered: 12/10/2021 TYPE AND SCREEN,30 DAY TYPE AND SCREEN,30 DAY Blood Bank Routine Pre-op evaluation 05/20/2022 10:51 AM EDT [facility] Work Phone: US Carotid arteries [facility] Work Phone: End: 11-04-2023 US CAROTID ARTERIES [facility] US CAROTID ARTERIES [facility] Vascular Lab Routine Bruit of right carotid artery 1 Occurrences starting 11/03/2022 until 11/04/[address] [facility] Work Phone: Comment on above: 1 Occurrences starti ng 11/03/2022 until 11/04/2023 End: 05-21-2023 US LEG VEIN DVT [facility] US LEG VEIN DVT [facility] Vascular Lab Routine Personal history of DVT (deep vein thrombosis) Anticoagulation management encounter History of pulmonary embolism 1 Occurrences starting 05/20/2022 until 05/21/[address] 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 Work Phone: Comment on above: 1 Occurrences starti ng 11/03/2022 until 11/04/2023 End: 07-10-2024 XR Shoulder - left 3 Views XR SHOULDER GENERAL 3V OR MORE AP/TRUE AP/OTHER LEFT Radiology Routine Pain in left arm 1 Occurrences starting 06/11/2023 until 07/10/[address] [facility] Work Phone: Comment on above: 1 Occurrences starti ng 06/11/2023 until 07/10/2024 XR Shoulder - left 3 Views XR SHOULDER GENERAL 3V OR MORE AP/TRUE AP/OTHER LEFT Radiology Routine Pain in left arm 06/14/2023 8:53 AM EDT [facility] Work Phone: [facility] Immunizations Immunization Date Immunization Notes Care Provider Sudhakar melton 12-17-2016 tetanus toxoid, redu rocky diphtheria toxoid, and acellular pertussis vaccine, adsorbed No PCP None [facility] Payers Date Payer Category Payer Self-pay [id number] 2015 Medicare MEDICARE MEDICAR E A AND B [id number] 2015-Present [phone] [address] [address] [place] [address] Medicare [id number] 2015 Medicare [id number]. [id number] 2015 Medicare [id number] 2012 Private Health Insurance BRYAN JORDAN PPO [id number] 2012-Present [phone] [address] [place] [address] [facility] [id number] 2.7.3.029279.315 2005 Managed Care (Private) BRYAN SANTOS [facility] PLAN [id number]. [id number] 2005 Private Health Insurance 1.2 .840.715459.1.13.159. 2.7.3.930169.315 2005 Private Health Insurance [id number] 1950 Unknown [id number] 2.0.1.003487.3.579. 2.1245 1950 Unknown [id number] 2.840.1.556077.3.579. 2.1243 Unknown Unknown VA AUTH REQUIR ED SEE NOTE [id number] Unknown [id number] 2.16840.1.374899.3.579. 2.462 Unknown [id number] 2.840.1.847636.3.579. 2.462 Unknown [id number] 2.16840.1.434881.3.579. 2.462 Unknown [id number] 2.16840.1.340495.3.579. 2.462 Unknown [id number] 2.16840.1.321756.3.579. 2.462 Unknown [id number] 2.16840.1.005156.3.579. 2.462 Unknown [id number] 2.16840.1.312278.3.579. 2.462 Unknown [id number] 2.16840.1.185394.3.579. 2.462 Unknown [id number] 2.16840.1.512166.3.579. 2.462 Unknown [id number] 2.16.840.1.141124.3.579. 2.462 Unknown [id number] 2.16.840.1.755818.3.579. 2.462 Unknown [id number] 2.16.840.1.986341.3.579. 2.462 Unknown [id number] 2.16.840.1.095940.3.579. 2.462 Unknown [id number] 2.16.840.1.496749.3.579. 2.462 Unknown [id number] 2.16.840.1.997250.3.579. 2.462 Unknown [id number] 2.840.1.120277.3.579. 2.462 Unknown [id number] 2.16840.1.680366.3.579. 2.462 Unknown [id number] 2.840.1.253340.3.579. 2.462 Unknown [id number] 2.840.1.344606.3.579. 2.462 Unknown [id number] 2.840.1.403568.3.579. 2.462 Unknown [id number] 2.840.1.376674.3.579. 2.462 Unknown [id number] 2.840.1.450537.3.579. 2.462 Unknown [id number] 2.840.1.220494.3.579. 2.462 Unknown [id number] 2.16840.1.591035.3.579. 2.462 Unknown [id number] 2.16.840.1.126194.3.579. 2.462 Unknown [id number] 2.16840.1.862785.3.579. 2.462 Unknown [id number] 2.16.840.1.811941.3.579. 2.462 Unknown [id number] 2.16840.1.498813.3.579. 2.462 Unknown [id number] 2.16.840.1.597121.3.579. 2.462 Unknown [id number] 2.16.840.1.097018.3.579. 2.462 Unknown [id number] 2.16.840.1.406379.3.579. 2.462 Unknown [id number] 2.16840.1.597987.3.579. 2.462 Unknown [id number] 2.16840.1.613976.3.579. 2.462 Unknown [id number] 2.16840.1.058361.3.579. 2.462 Social History Date Type Detail Facility Start: 02-11-2021 End: 07-01-2022 Former smoker Former smoker [facility] Start: 02-11-2021 End: 04-25-2024 Tobacco smoking status SDIS Ex-smoker [facility] Start: 01-28-1970 End: 01-29-2000 History of tobacco use Current smoker [facility] Start: 01-28-1970 End: 01-29-2000 History of tobacco use Cigarette Smoker [facility] Start: 05-29-2021 End: 07-14-2023 Alcohol intake Current drinker of alcohol (finding) [facility] Start: 03-20-2021 History SDOH Alcohol Comment rarely [facility] Start: 1950 Sex Assigned At Male [facility] Start: 05-19-2021 End: 03-27-2024 Exposure to SARS-CoV-2 (event) Not sure [facility] Start: 06-04-2020 End: 07-08-2023 Tobacco smoking status SDIS Unknown if ever smoked [facility] Start: 01-18-2014 Occasional [facility] Start: 01-18-2014 None [facility] Start: 01-18-2014 Spouse/ Signif icant Other [facility] Start: 01-18-2014 Non-smoker [facility] Start: 02-11-2021 End: 11-30-2023 Tobacco use and exposure Smokeless tobacco non-user [facility] Start: 03-15-2022 History SDOH Housing Unable to Pay 3 [facility] Start: 05-20-2022 End: 07-05-2024 Alcohol intake Ex-drinker (finding) [facility] Start: 03-14-2022 End: 07-01-2022 Social connection and isolation panel [facility] Start: 07-15-2023 In a typical week, h ow many times do you talk on the telephone with family, friends, or neighbors? Patient refused [facility] Are you now , , , , never or living with a partner? Refused [facility] (I/We) worried wheth er (my/our) food would run out before (I/we) got money to buy more. DK or Refused [facility] Start: 03-14-2021 Gender identity Identifies as male gender (finding) [facility] Start: 03-14-2021 Sexual orientation Heterosexual (reagan wood) [facility] Has the [employer], or [employer] threatened to shut off services in your home in past 12Mo No [facility] Medical Equipment Procedure Code Equipment Code [...] approach, with fusion Collagen haemostatic agent, non-antimicrobial [id number] FDA Start: 01-18-2024 Discectomy, spine, cervical, anterior approach, with fusion Ligation clip, metallic [id number] FDA Start: 01-18-2024 Discectomy, spine, cervical, [...] FDA Start: 01-18-2024 Coil Concerto 5m m [place] Nylon 20cm Embolization Detachable Accepts .021in - [id number] Start: 02-01-2022 Device Angio-Sea l Vip 6fr .035in Collagen 70cm Closure Valuelink Guidewire - [id number] Start: 02-01-2022 System Option 6. 5fr 0-32mm 5fr 70cm Embolic Protection Filter Kit - [id number] Start: 02-16-2022 System Option 6. 5fr 0-32mm 5fr 70cm Embolic Protection Filter Kit - [id number] Start: 03-02-2022 Catheter Triever 24 24fr Thrombectomy 22-101 [id number] Start: 03-02-2022 Coil Concerto Latticefx 4mm [place] Nylon Fiber Polypropylene 10cm - [id number] Start: 02-01-2022 Coil Azur Cx Hydrocoil 2mm .018in Hydrogel 4cm Embolization Detachable Loop - [id number] Start: 02-01-2022 Coil Azur Cx Hydrocoil 3mm .018in Hydrogel 8cm Embolization Detachable Loop - [id number] Start: 02-01-2022 Coil Azur Cx Hydrocoil 2mm .018in Hydrogel 4cm Embolization Detachable Loop - [id number] Start: 02-01-2022 Coil Azur Cx Hydrocoil 2mm .018in Hydrogel 4cm Embolization Detachable Loop - [id number] Start: 02-01-2022 Coil Azur Cx Hydrocoil 2mm .018in Hydrogel 4cm Embolization Detachable Loop - [id number] Start: 02-01-2022 Coil Azur Cx Hydrocoil 2mm .018in Hydrogel 4cm Embolization Detachable Loop - [id number] Start: 02-01-2022 Coil Azur Cx Hydrocoil 3mm .018in Hydrogel 8cm Embolization Detachable Loop - [id number] Start: 02-01-2022 Coil Azur Cx Hydrocoil 3mm .018in Hydrogel 8cm Embolization Detachable Loop - [id number] Start: 02-01-2022 Coil Azur Cx Hydrocoil 3mm .018in Hydrogel 8cm Embolization Detachable Loop - [id number] Start: 02-01-2022 Coil Azur Cx Hydrocoil 3mm .018in Hydrogel 8cm Embolization Detachable Loop - [id number] Start: 02-01-2022 Peripheral arter y stent, bare-metal ()[id number] FDA Start: 07-08-2023 Functional Status Date Assessment Result Facility 03-10-2022 Are you deaf, or do you have serious difficulty hearing No 03/10/2022 9:19 AM Isaura Lakhani RN No [facility] 03-10-2022 Are you blind, or do you have serious difficulty seeing, even when wearing glasses No 03/10/2022 9:19 AM Isaura Lakhani RN No [facility] 03-10-2022 Do you have serious difficulty walking or climbing stairs No 03/10/2022 9:19 AM Isaura Lakhani, DERRICK No [facility] 03-10-2022 Do you have difficul ty dressing or bathing No 03/10/2022 9:19 AM Isaura Lakhani, DERRICK No [facility] 03-10-2022 Because of a physica l, mental, or emotional condition, do you have difficulty doing errands alone such as visiting a physician's office or shopping No 03/10/2022 9:19 AM Isaura Lakhani RN No [facility] Mental Status Date Assessment Result Facility 06-11-2023 Cognitive function Level Of Cons ciousness Awake;Alert;Inappropriate;R estless [facility] Work Phone: 03-10-2022 Because of a physica l, mental, or emotional condition, do you have serious difficulty concentrating, remembering, or making decisions No 03/10/2022 9:19 AM Isaura Lakhani, DERRICK No [facility] 03-01-2022 Cognitive function Level Of Cons ciousness Awake;Alert;Appropriate;Fol lows Commands [facility] Work Phone: 06-09-2021 Cognitive function Voice/Name [facility] Work Phone: Clinical Notes 07-16-2020 to 01-02-2025 Note Date & Type Note Facility 01-02-2025 Note [facility] Medical Records Department [address] [place] [address] History Physical Exam 01/02/25 1153 MR#: [id number] Acct: [id number] Name: JAI LUNA Rep #: [id number] : 1950 74 From: Howard Siddiqui MD PCP: Dr. Katy Faust MD Status:[facility] Location: [place] [address] History and Physical Date of Admission: 01/02/25 MR#: [id number] Acct: [id number] Name: JAI LUNA Rep #: [id number] : 1950 Provider: Dr. Howard Siddiqui MD Age/Sex: 74/M [place] [facility] Status: Signed Intake Vital Signs 10/14/2507:58 11/29/2506:49 [...] 12/22/16) Essential hypertension Atherosclerotic heart disease of [place] coronary artery without angina pectoris Hypoacusis Dyslipidemia [...] to an u (more content not included)... [facility] 12-26-2024 Note HNO ID: [id number] Author: SRINIVASAN DA SILVA APRN.SPECIAL EVENTS COORDINATOR Service: ? Author Type: Nurse Specialist Type: [...] Scheduled for back surgery on 06/03 at [facility] by Dr. Siddiqui to address spinal stenosis in the lower spine. - Has seen [facility] for pre-surgery evaluation. He has [...] lumbar spine surgery scheduled on the at [facility] with Dr. Siddiqui. - No active infection, [...] perspective. CBC and CMP was completed at [facility] on December 20. - Advised to call Dr. Siddiqui's office the day before surgery to confirm surgery time if he does not receive a call with his surgery time. 2. Spinal stenosis of lumbar region with neurogenic claudication (M48.062) - Chronic lumbar spinal stenosis with neurogenic claudication affecting left leg; surgery planned to address this. 3. Coronary artery disease involving [place] coronary artery of [place] heart without angina pectoris (I25.10) 4. 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 S/P coronary artery stent placement (Z95.5) 6. History of pulmonary embolism (Z86.711) - Cardiology evaluation completed prior to surgery; instructed to stop aspirin and Plavix as per cardiology recommendations. 7. History of rectal cancer (Z85.048) 8. Presence o (more content not included)... [facility] 11-29-2024 Progress note [facility] 08-23-2024 Evaluation note Diagnosis Onset Date [...] November 29 10:38am Atherosclerotic heart disease of [place] coronary artery without angina pectoris chronic November 29 10:38am Dyslipidemia chronic November 29, 2024 10:38am Essential hypertension chronic Oc tob2024 10:38am Peripheral vascular disease chronic November 29 10:38am [facility] Work Phone: 1(517) 630-101906-17-2025 NoteHNO ID: [id number] Author: NORM PARKER APRN.SOYBEAN GROWER Service: ? 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 Norm Parker APRN-CHELSIE documented in this encounterC[facility] Telephone encounter Note * Telephone Encounter - Cony Raygoza RN - 08/08/2024 2:34 PM EDT Patient calls to check on forms being sent to [employer]. Patient reports that he spoke to them today and they have not received the forms for ostomy pouches. Patient reports that he is down to two pouches and will need them very soon. Patient requesting call back at [phone]. Please review and advise, Cony Raygoza RN [facility]06-10-2025 Miscellaneous Notes* Telephone Encounter - Cony Raygoza RN - 08/08/2024 2:34 PM EDT Patient calls to check on forms being sent to [employer]. Patient reports that he spoke to them today and they have not received the forms for ostomy pouches. Patient reports that he is down to two pouches and will need them very soon. Patient requesting call back at [phone]. Please review and advise, Cony Raygoza RN documented in this encounterC[facility]06-[facility]25 NoteHNO ID: [id number] Author: LEONARDO VILLAREAL RN Service: ? Author [...] 45 minutes SCOTTIE Robbins RN CWOCN The [facility] nursing pager [phone] (M-F 7a-4p, Sat, Sun, Holiday 7a-3p)[facility]06-02-2025 History of Present illness Narrative* Leonardo [...] 45 minutes SCOTTIE Robbins RN CWOCN The [facility] nursing pager [phone] (M-F 7a-4p, Sat, Sun, Holiday 7a-3p) documented in this encounterC[facility]05-[facility]25 NoteHNO ID: [id number] Author: PRAVEENA DURAN RN Service: ? Author Type: Registered Nurse Type: Progress Notes Filed: 07/18/2024 12:41 Note Text: [place] [address] Patient: Jai Luna Patient Address: [address] [place] [address] Preferred Gender: male Date of : 1950 Type of Stoma: Loop Ileostomy Diagnosis: Ileostomy Status Z93.2 OSTOMY SUPPLY ORDER FORM Pouch: ConvaTec: 1 ?" Natura + Drainable pouch, Transparent #[id number] 30 day use - 2 Boxes Wafer: ConvaTec: Hailey-Fit Natura 1 3/4" Flat Durahesive # [id number] 30 day use - 2 Boxes Moldable Ring: Sharri CeraRing Regular # [id number] 30 day use - 2 Boxes Refills: 11 Attending Physician: Dr. Cheung For immediate authorization, please contact the physician?s office. SIGNATURE: Praveena Duran RN PATIENT NAME: Jai Luna DATE: July 18, 2024 TIME: 12:38 PM CONTACT #: [id number] Note HNO ID: [id number] Author: PRAVEENA DURAN RN Service: ? Author Type: Registered Nurse Type: Progress Notes Filed: 07/18/2024 12:44 Note Text: WO Nursing Consult Topic: WOC Consultation Note Outcome: Pt to A30 for appointment with [facility] Nursing. He has an established ileostomy for several years. He is here today with complaints of peristomal ulcer and pain. We discussed switching from a flat to a convex pouching system. Pt agreed with this. He has an established relationship with [employer] for supplies. If he likes the new pouch he can order it from [employer]. I provided him with x4 sets of [...] per day: varies Current pouching system: one-piece Sahrri Premier convex drainable pouch. Stoma paste. Current [...] hour SCOTTIE Hoffman, RN, CWOCN For non-emergent [facility] Nursing patient care needs - Please place a consult via Epic under "ostomy". WO Nurse Available Hours: M-F: [phone]; Weekends AND Holidays: [phone] For emergent [facility] Nursing patient care needs - Page #[phone], during available hours only.[facility]05-19-2025 History of Present illness Narrative* Praveena [...] this. He has an established relationship with [employer] for supplies. If he likes the new pouch he can order it from [employer]. I provided him with x4 sets of [...] per day: varies Current pouching system: one-piece [place] Premier convex drainable pouch. Stoma paste. Current wearing time: 2 days- seal was intact but concern is for pressure injury related to use of convexity. Will switch to flat pouching system to see if this helps. Recommendations: Skin Care: applied Convatec Stomahesive powder followed by 3m Cavilon no-sting skin sealant Pouching System: 1 3/4" Convatec SurFit Natura Durahesive flat cut-to-fit flange. [place] CearRing. Drainable pouch. Wear Time Goal: 3-4 days Time Increment: 1 hour SCOTTIE Hoffman, RN, CWOCN For non-emergent [facility] Nursing patient care needs - Please place a consult via [facility] under "ostomy". WO Nurse Available Hours: M-F: [phone]; Weekends & Holidays: 2931-3000 For emergent [facility] Nursing patient care needs - Page #[phone], during available hours only. documented in this encounterC[facility] Evaluation note* Diagnosis Onset Date Resolution Status Admit Date Spinal stenosis of lumbar re gion with neurogenic claudication acute July 06, 2024 8:28am Status post cervical spinal fusion a cute July 06, 2024 8:28am [facility] Work Phone: 1(800) 112-902705-08-2025 Evaluation note* Diagnosis Onset Date Resolution Status [...] Thoracic radiculopathy acute Ju ly 2024 1:14pm [facility] Work Phone: 1(602) 480-177105-08-2025 Evaluation note* Diagnosis Onset Date Resolution Status [...] Thoracic radiculopathy acute [place] bella 2024 8:21am [facility] Work Phone: 1(537) 585-460805-07-2025 Telephone encounter Note* Telephone Encounter - Norm [...] interference with the stoma. Thank you, Norm [facility]05-07-2025 Miscellaneous Notes* Telephone Encounter - Norm [...] stoma. 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 JORDON Carrillo documented in this encounterCleveland [facility]05-[facility]25 NoteHNO ID: [id number] Author: NORM PARKER APRN.CNP Service: ? 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 ASSESSMENT/PLAN: (more content not included)...[facility]05-05-2025 Telephone encounter Note* Telephone Encounter - Norm Parker APRN.CNP - 07/03/2024 11:20 AM EDT Noted, agree we can see him to decide which would be best, likely will need wound center but can see the area first to decide. [facility]05-05-2025 Miscellaneous Notes* Telephone Encounter - Norm [...] to gerneral surgery or wound center at [facility]. Appointment made for Wednesday but aware routing to provider to review Celeste Maravilla MA documented in this encounterCleveland Clinic [facility]05-05-[facility]25 Telephone encounter Note * Telephone Encounter [...] to gerneral surgery or wound center at [facility]. Appointment made for Wednesday but aware routing to provider to review Celeste Maravilla MA [facility]04-02-2025 Instructions* Patient Instructions* Katy Faust MD [...] flax seed as well. documented in this encounterCleveland Clinic [facility]04-02-2025 NoteHNO ID: [id number] Author: KATY FAUST MD Service: ? Author Type: Physician Type: Progress Notes Filed: 05/31/2024 17:06 Note Text: This note was created using [employer]. Subjective Jai Luna is a 74 year [...] of seeking a second opinion from another telecom specialist if symptoms persist or worsen. # [...] the date of the service which included ufpc-wp-yvas patient care, completing clinical documentation, obtaining and/or reviewing separately obtained history, performing a medically appropriate examination, counseling and educating the patient/family/caregiver, and ordering medications, tests, or procedures . Katy Faust MD The patient consented to the use of ambient [employer] software for draft documentation of the visit consistent with [facility]?s Notice of Privacy Practices. [facility]04-02-2025 History of Present illness Narrative* Katy Faust MD - 05/31/2024 4:30 PM EDT This note was created using [employer]. Subjective Jai Luna is a 74 year [...] of seeking a second opinion from another telecom specialist if symptoms persist or worsen. # [...] the date of the service which included idmh-rf-azbo patient care, completing clinical documentation, obtaining and/or reviewing separately obtained history, performing a medically appropriate examination, counseling and educating the patient/family/caregiver, and ordering medications, tests, or procedures . Katy Faust MD The patient consented to the use of [employer] software for draft documentation of the visit consistent with [facility] s Notice of Privacy Practices. documented in this encounterCleveland Clinic [facility]02-21-2025 Evaluation note* Diagnosis Onset Date Resolution Status Admit Date Spinal stenosis of lumbar region with neurogenic claudication acute April 21, 2 025 12:23pm Status post cervical spinal fusion acute April 21, 025 12:23pm Spinal stenosis of lumbar region with neurogenic claudication acute July 06, 2024 8: 28am Status post cervical spinal fusion acute July 06, 2024 8: 28am [facility] Work Phone: [phone] Telephone encounter Note* Telephone Encounter - Alba Higginbotham MA - 02/28/2024 9:20 AM EST Nothing in Care Everywhere. [facility]12-30-2024 Miscellaneous Notes* Telephone Encounter - Alba Higginbotham MA - 02/28/2024 9:20 AM EST Nothing in Care Everywhere. * Telephone Encounter - Katy Faust MD - 02/27/2024 11:38 PM EST See MyChart reply documented in this encounterCleveland Clinic [facility]12-29-2024 Telephone encounter Note * Telephone Encounter - Katy Faust MD - 02/27/2024 11:38 PM EST See MyChart reply [facility]12-23-2024 NoteHNO ID: [id number] Author: ROBBIE CAM MA Service: ? Author Type: Supervisor Area Type: Progress Notes Filed: 02/21/2024 08:31 Note Text: POPULATION HEALTH NAVIGATION OUTREACH Action/FYI Patient replied via wanting to schedule for flank pain, I sent info for nurse operations expert. Reason for Outreach Returned Call/MyChart Patient Contacted: Spoke to patient/parent/or legal guardian Patient identified by name and date of : Yes Returned call/MyChart actions taken: MyChart message sent Navigation Signature: Robbie Cam MA February 21, 2024 8:30 [facility]12-20-2024 NoteHNO ID: [id number] Author: ROBBIE CAM MA Service: ? Author Type: Supervisor Area Type: Progress Notes Filed: 02/18/2024 10:29 Note [...] Robbie Cam MA February 18, 2024 10:16 [facility]12-20-2024 History of Present illness Narrative* [...] 18, 2024 10:16 AM documented in this encounterCleveland Clinic [facility]12-20-2024 NotePatient Outreach (NETNAV) JAI LUNA ([id number]) 1950 M Date Time Provider Department 02/18/24 ORBBIE CAM During your visit today, we recorded [...] flank pain, I sent info for nurse operations expert. Reason for Outreach Returned Call/MyChart Patient Contacted: [...] Date Reviewed: 01/04/2024 Reviewed by: Norm Parker APRN.SOYBEAN GROWER - Fully Assessed Reason for Visit: Population [...] 09/22/2023 Encounter Status:Closed by DORINA, ROBBIE on 02/18/24[facility]12-16-2024 Telephone encounter Note* Telephone Encounter - Katy Faust MD - 02/14/2024 7:55 PM EST Noted. Katy Faust MD [facility]12-16-2024 Miscellaneous Notes* Telephone Encounter - Katy [...] surgery in December [address]iddiqui [facility]. Advised patient to go to [facility] ER for evaluation. He said has no ride until his comes home, has one car. Patient said he would go to ER after comes home. documented in this encounterCleveland Clinic [facility]12-16-2024 Telephone encounter Note * Telephone Encounter [...] surgery in December [address] Siddiqui [facility]. Advised patient to go to [facility] ER for evaluation. He said has no ride until his comes home, has one car. Patient said he would go to ER after comes home. [facility]11-19-2024 [facility] Medical Records Department [address] [place] [address] History Physical Exam 01/18/24 0728 MR#: [id number] Acct: [id number] Name: JAI LUNA Rep #: [id number] : 1950 73 From: Howard Siddiqui MD PCP: Dr. Katy Faust MD Status:[facility] Location: [place] [address] History and Physical Date of Admission: 01/18/24 MR#: [id number] Acct: [id number] Name: JAI LUNA Rep #: [id number] : 1950 Provider: Dr. Howard Siddiqui MD Age/Sex: 73/M [place] [facility] Status: Signed Intake Vital Signs 11/09/2409:35 Height [...] 12/22/16) Essential hypertension Atherosclerotic heart disease of [place] moore[place] coronary artery without angina pectoris Hypoacusis Dyslipidemia [...] by me, Dr. Howard Siddiqui MD 01/11/24 0755. Part of today???s visit was documented by [...] leg. Patient states his (more content not included)...[facility]11-05-2024 NoteHNO ID: [id number] Author: NORM PARKER APRN.SOYBEAN GROWER Service: ? Author Type: Nurse Practitioner Type: [...] done on 01/18/[address] Siddiqui at [facility]. History of having anesthesia: Yes. Any [...] recent sickness. No history of CVA or MD. Sees [facility], had a stress test yesterday. [...] Embolism - 09/22/2023 Pvd (Peripheral Vascular Disease) ([facility]) - 09/22/2023 History of Dvt (Deep Vein Thrombosis) - 09/22/2023 Acute Deep Vein Thrombosis (Dvt) of Proximal Vein of Left Lower Extremity ([facility]) - 07/21/2022 Pulmonary Embolism and Infarction ([facility]) - 03/02/2022 Pulmonary Embolism ([facility]) - 02/13/2022 Hypokalemia - 02/10/2022 Urinary Retention - [address] ([facility]) - 01/28/2022 Rectal Cancer ([facility]) - 01/27/2022 Rectal Malignant Neoplasm ([facility]) - 05/29/2021 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 Siddiqui at [facility]. History of having anesthesia: Yes. Any [...] recent sickness. No history of CVA or MD. Sees [facility], had a stress test yesterday. [...] Embolism - 09/22/2023 Pvd (Peripheral Vascular Disease) ([facility]) - 09/22/2023 History of Dvt (Deep Vein Thrombosis) - 09/22/2023 Acute Deep Vein Thrombosis (Dvt) of Proximal Vein of Left Lower Extremity ([facility]) - 07/21/2022 Pulmonary Embolism and Infarction ([facility]) - 03/02/2022 Pulmonary Embolism ([facility]) - 02/13/2022 Hypokalemia - 02/10/2022 Urinary Retention - [address] ([facility]) - 01/28/2022 Rectal Cancer ([facility]) - 01/27/2022 Rectal Malignant Neoplasm ([facility]) - 05/29/2021 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 Siddiqui at [facility]. 2. Spinal stenosis in cervical region [...] on chronic conditions and medications.. Norm Parker APRN-SOYBEAN GROWER documented in this encounterCleveland Clinic [facility]10-23-2024 Telephone encounter Note * Telephone Encounter - Don Feldman LPN - 12/22/2023 1:36 PM EDT Last appointment was 11/30/23. Pre-op is to be within 30 days of surgery date and so will have patient keep appointment. [facility]10-23-2024 Miscellaneous Notes* Telephone Encounter - Don [...] be faxing the form. documented in this encounterCleveland Clinic [facility]10-23-2024 Telephone encounter Note * Telephone Encounter [...] Siddiqui is to be faxing the form. [facility]10-01-2024 History of Present illness Narrative* Norm Parker APRN.SOYBEAN GROWER - 11/30/2023 9:53 AM EDT Images from the original note were not included. SUBJECTIVE Jai Luna is a 73 year old male here today for acute concern. Chief Complaint Patient presents with: Pain (Shoulder Pain): left has been to PT at [facility] per Dr. Siddiqui but did not help. MRI is scheduled 12/09/23 through [facility] Jai Luna is a 73 year old male. He is an established patient of Katy Faust MD. He is here today acutely for concerns of left shoulder pain. Rated as 10/10 at times. Radiates down from theneck to arm. Described as a burning and throbbing, impacting sleep. He has done PT at [facility] with no improvement. Seeing Dr. Siddiqui with [facility] and is getting an MRI done [...] Embolism - 09/22/2023 Pvd (Peripheral Vascular Disease) ([facility]) - 09/22/2023 History of Dvt (Deep Vein Thrombosis) - 09/22/2023 Acute Deep Vein Thrombosis (Dvt) of Proximal Vein of Left Lower Extremity ([facility]) - 07/21/2022 Pulmonary Embolism and Infarction ([facility]) - 03/02/2022 Pulmonary Embolism ([facility]) - 02/13/2022 Hypokalemia - 02/10/2022 Urinary Retention - [address] ([facility]) - 01/28/2022 Rectal Cancer ([facility]) - 01/27/2022 Rectal Malignant Neoplasm ([facility]) - 05/29/2021 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 Norm Parker APRN-CHELSIE documented in this encounterCleveland Clinic [facility]09-30-2024 Telephone encounter Note * Telephone Encounter - Coral Charles RN - 11/29/2023 3:50 PM EDT Spoke with patient. Given message from provider's office. Patient verbalizes understanding. Appointment scheduled. Coral Charles RN [facility]09-30-2024 Miscellaneous Notes* Telephone Encounter - Coral [...] not sleep.. PATIENT did physcial therapy at [email or web address] times with norelief. Patient sees spine doctor which recommended a MRI, scheduled for 12/09/23. Patient is requesting pain meds Patient uses [facility] please review and advise. Calista Rehman LPN documented in this encounterCleveland Clinic [facility]09-30-2024 Telephone encounter Note * Telephone Encounter - Norm Parker APRN.CNP - 11/29/2023 3:36 PM EDT He really needs to be seen for an appointment for pain medication because he is likely going to require something controlled for his pain. [facility]09-30-2024 Telephone encounter Note* Telephone Encounter - Calista Rehman LPN - 11/29/2023 2:50 PM EDT Patient is calling with left shoulder pain 10/10 pain scale. The pain radiates down from neck to arm, burning throbss and can not sleep.. PATIENT did physcial therapy at [facility] 4 times with ahmet. Patient sees spine doctor which recommended a MRI, scheduled for 12/09/23. Patient is requesting pain meds Patient uses [facility] please review and advise. Calista Rehman LPN [facility]09-10-2024 Telephone encounter Note* Telephone Encounter - Jenna Sevilla LPN - 11/09/2023 10:13 AM EDT Forms finally went through to fax number provided for [employer]. Patient updated. Jenna Sevilla LPN [facility]09-10-2024 Miscellaneous Notes* Telephone Encounter - Jenna Sevilla LPN - 11/09/2023 10:13 AM EDT Forms finally went through to fax number provided for [employer]. Patient updated. Jenna Sevilla LPN * Telephone Encounter - Jenna Sevilla LPN - 11/05/2023 4:44 PM EDT Refaxed the forms to [phone]. Have attempted to fax the forms to that same number several times and none have gone through. Jenna Sevilla LPN * Telephone Encounter - Cony Raygoza RN - 11/05/2023 3:59 PM EDT Patient calls to report that [facility] has not received any orders/forms at this time. Requesting they be faxed to [phone]. Faxed available order. No forms for this nurse to fax. Cony Raygoza RN * Telephone Encounter - Jenna Sevilla LPN - 10/27/2023 3:23 PM EDT Spoke to staff at [facility], they had faxed another form to us this am. Staff member aware our faxed not going through to them and no faxes received here at the clinic from them. Jenna Sevilla LPN * Telephone Encounter - Jenna Sevilla LPN - 10/27/2023 3:09 PM EDT Order was emailed to [place] due to faxes were not going through. [...] accordingly. See MyChart reply documented in this encounterCleveland Clinic [facility]09-09-2024 Telephone encounter Note * Telephone Encounter - Jenna Sevilla LPN - 11/08/2023 12:18 PM EDT Made a copy of the forms and placed in mail. Attempted again to fax to number provided, did not go through. Jenna Sevilla LPN [facility]09-09-2024 Miscellaneous Notes* Telephone Encounter - Jenna Sevilla LPN - 11/08/2023 12:18 PM EDT Made a copy of the forms and placed in mail. Attempted again to fax to number provided, did not go through. Jenna Sevilla LPN * Telephone Encounter - Whitney Blunt LPN - 10/28/2023 10:54 AM EDT Contacted [facility] again letting them know we have made several attempts to fax orders in the last couple weeks but faxes are not going through, fast busy. [facility] states other faxes are going through and there is not other number to fax to but she did give me a email address of [email or web address] to try. Documentation has been emailed. * Telephone Encounter - Katy Faust MD - 10/27/2023 7:59 PM EDT Let patient known when this issue of RXs getting to [place] has been taken care of documented in this encounterCleveland Clinic [facility]09-06-2024 Telephone encounter Note * Telephone Encounter - Jenna Sevilla LPN - 11/05/2023 4:44 PM EDT Refaxed the forms to [phone]. Have attempted to fax the forms to that same number several times and none have gone through. Jenna Sevilla LPN [facility]09-06-2024 Telephone encounter Note* Telephone Encounter - Cony Raygoza RN - 11/05/2023 3:59 PM EDT Patient calls to report that [facility] has not received any orders/forms at this time. Requesting they be faxed to [phone]. Faxed available order. No forms for this nurse to fax. Cony Raygoza, RN [facility]08-29-2024 Telephone encounter Note* Telephone Encounter - Whitney Blunt LPN - 10/28/2023 10:54 AM EDT Contacted [facility] again letting them know we have made several attempts to fax orders in the last couple weeks but faxes are not going through, fast busy. [facility] states other faxes are going through and there is not other number to fax to but she did give me a email address of [email or web address] to try. Documentation has been emailed. [facility]08-28-2024 Telephone encounter Note* Telephone Encounter - Katy Faust MD - 10/27/2023 7:59 PM EDT Let patient known when this issue of RXs getting to [place] has been taken care of [facility]08-28-2024 Telephone encounter Note* Telephone Encounter - Jenna Sevilla LPN - 10/27/2023 3:23 PM EDT Spoke to staff at [facility], they had faxed another form to us this am. Staff member aware our faxed not going through to them and no faxes received here at the clinic from them. Jenna Sevilla LPN [facility]08-28-2024 Telephone encounter Note* Telephone Encounter - Jenna Sevilla LPN - 10/27/2023 3:09 PM EDT Order was emailed to [place] due to faxes were not going through. Jenna Sevilla LPN [facility]08-28-2024 Telephone encounter Note* Telephone Encounter - Fela Church LPN - 10/27/2023 2:23 PM EDT Checking to see if this has been faxed. If it is done please close encounter. Fela Church LPN [facility]08-23-2024 Telephone encounter Note* Telephone Encounter - [...] above. Please process accordingly. See MyChart reply [facility]07-26-2024 Telephone encounter Note* Telephone Encounter - Shaneka Perez - 09/24/2023 10:51 AM EDTSummary: plavix DOS 09/30/2023 received and scanned into chart [facility] Work Phone: [phone] Miscellaneous Notes* Telephone Encounter - Shaneka Perez - 09/24/2023 10:51 AM EDTSummary: plavix DOS 09/30/2023 received and scanned into chart documented in this encounterCleveland Clinic [facility]07-24-2024 History of Present illness Narrative* Parvin [...] 2023 TIME: 5:53 PM documented in this encounterCleveland Clinic [facility]07-24-2024 History and physical note * Linda Daley, NAVNEET.SOYBEAN GROWER - 09/22/2023 2:50 PM EDT Images from the original note were not included. [facility] HISTORY [...] artery 07/08/23. Completed by Dr. Reynolds at [facility] on Plavix and ASA. History of DVT [...] have a large neck STOP-Bang Score: 3 [id number] Score: Hypertension history: Yes Vascular disease history: Yes [id number] Score: ANESTHESIA FINDINGS: Intubation History: No history [...] clearance for Plavix faxed to Dr. Reynolds ([facility]) Patient s/p left arm angiogram, IVUS [...] He had an OV with Dr Muñiz ([facility]) on 07/14/23 for rectal bleeding and [...] fevers. Neurological: No history of TIA's, stroke, SPECIAL EVENTS COORDINATOR tumor, impaired sensorium, hemiplegia, paraplegia orquadraplegia. No [...] chest pain, CHF, congenital heart defect, recent MD and murmur/valvular heart disease. GI: See HPI. [...] Coronary atherosclerosis of unspecified type of vessel, [place] or graft Coronary artery disease Diverticulosis of [...] PROSTATE SURGERY HX STRABISMUS RECESSION/RESCJ 1 BANNER Strabismus surgery TONSILLECTOMY HX TONSILLECTOMY PRIMARY/SECONDARY Tonsillectomy [...] 426 QTC Calculation (Bazett) 446 Calculated P Ward 2 Calculated R Ward 16 Calculated T Ward 35 Impression NORMAL SINUS RHYTHM COMPLETE RIGHT BUNDLE BRANCH BLOCK ABNORMAL ECG Recent Results (from the past 62607 hour(s)) ECHO Collection Time: 03/03/22 4:24 PM [...] 21, 2023 TIME: 9:05 PM PAGER/CONTACT #: [facility]07-24-2024 History and physical note* Linda Daley APRN.CNP - 09/22/2023 2:50 PM EDT Images from the original note were not included. 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 [...] Follows with Vascular. PVD (peripheral vascular disease) ([facility]) Patient s/p left arm angiogram, IVUS aorta, subclavian/axillary, brachial, radial arteries angioplasty and stent of left subclavian artery 07/08/23. Completed by Dr. Reynolds at [facility] on Plavix and ASA. History of DVT [...] have a large neck STOP-Bang Score: 3 [id number] Score: Hypertension history: Yes Vascular disease history: Yes [id number] Score: ANESTHESIA FINDINGS: Intubation History: No history [...] clearance for Plavix faxed to Dr. Reynolds ([facility]) Patient s/p left arm angiogram, IVUS [...] He had an OV with Dr Muñiz ([facility]) on 07/14/23 for rectal bleeding and [...] fevers. Neurological: No history of TIA's, stroke, SPECIAL EVENTS COORDINATOR tumor, impaired sensorium, hemiplegia, paraplegia orquadraplegia. No [...] chest pain, CHF, congenital heart defect, recent MD and murmur/valvular heart disease. GI: See HPI. [...] Coronary atherosclerosis of unspecified type of vessel, [place]ore[place] slough or graft Coronary artery disease Diverticulosis of [...] PROSTATE SURGERY HX STRABISMUS RECESSION/RESCJ 1 BANNER Strabismus surgery TONSILLECTOMY HX TONSILLECTOMY PRIMARY/SECONDARY <AGE [...] 426 QTC Calculation (Bazett) 446 Calculated P Ward 2 Calculated R Ward 16 Calculated T Ward 35 Impression NORMAL SINUS RHYTHM COMPLETE RIGHT BUNDLE BRANCH BLOCK ABNORMAL ECG Recent Results (from the past 00012 hour(s)) ECHO Collection Time: 03/03/22 4:24 PM [...] 9:05 PM PAGER/CONTACT #: documented in this encounterCleveland Clinic [facility]07-24-2024 Instructions* Patient Instructions* Linda Daley APRN.CNP - 09/22/2023 1:53 PM EDT Images from the original note were not included. [place] [facility] [facility] PATIENT PREOPERATIVE INSTRUCTIONS Ramiro Cheung MD has scheduled you for your procedure at this surgery center: [facility] Scheduling Office: [phone] --[address] [place] [address]. Please read below carefully for your personalized [...] or other anticoagulants without consulting with your fire engine pump operator or prescribing physician. - Stop Vitamin E, [...] Procedures: - YOU MUST HAVE A RESPONSIBLE RENTAL BOATS CARETAKER TAKE YOU HOME. A INVESTOR OR CHANGE MANAGEMENT SPECIALIST CANNOT BE MADE A RESPONSIBLE RENTAL BOATS CARETAKER. - We recommend that a responsible person [...] call the Wednesday before. Your surgeon s diabetes territory manager will tell you what time to call the office. - If you have not reached the departmental diabetes territory manager by 5 P.M., call [phone] after 5 P.M. the day before your surgery. Please be aware that emergency situations arise, which may delay or change your surgical time. If this happens, we will notify you as soon as possible and regret any inconvenience. If you already have an Advance Directive, please fax a copy to [phone] or email to for it to be [...] your chart that day. documented in this encounterCleveland [facility]07[facility] History and physical note * Ramiro [...] He had an OV with Dr Muñiz ([facility]) on 07/14/23 for rectal bleeding and [...] 07/14/[address] Muñiz ([facility]) - Recommendation is to identify the source of your rectal bleeding - Follow-up with Urology to evaluate for a fistula connection to the urethra - Further surgical intervention is recommended to be pursued with Dr. Cheung or through the [facility] given the complexity of your case. Further work-up prior to surgery should be performed through the [facility] as any further surgical intervention would [...] Data Reviewed: Tests & Documents Reviewed/ordered: [facility] I have independently interpreted: CT [...] mortality and/or complications of treatment plan: low [facility]07-24-[facility]24 History and physical note* Ramiro Cheung [...] He had an OV with Dr Muñiz ([facility]) on 07/14/23 for rectal bleeding and [...] 07/14/[address] Muñiz ([facility]) - Recommendation is to identify the source of your rectal bleeding - Follow-up with Urology to evaluate for a fistula connection to the urethra - Further surgical intervention is recommended to be pursued with Dr. Cheung or through the [facility] given the complexity of your case. Further work-up prior to surgery should be performed through [facility] as any further surgical intervention would [...] Data Reviewed: Tests & Documents Reviewed/ordered: [facility] I have independently interpreted: CT [...] of treatment plan: low documented in this encounterCleveland Clinic [facility]06-11-2024 Miscellaneous Notes* Telephone Encounter - Jenna Sevilla LPN - 08/10/2023 12:17 PM EDT Forms were signed and faxed on 08/03/23. Patient aware, states received call from [facility] stating order was on its way to patient. Jenna Sevilla LPN * Telephone Encounter - Katy Faust MD - 08/09/2023 12:50 PM EDT Verify forms were signed and faxed then let patient know * Telephone Encounter - Jenna Sevilla LPN - 08/03/2023 1:51 PM EDT Forms received from [facility], patient updated via [employer] and forms forwarded to PCP. Jenna Sevilla LPN documented in this encounterCleveland Clinic [facility]06-11-2024 Telephone encounter Note * Telephone Encounter - Jenna Sevilla LPN - 08/10/2023 12:17 PM EDT Forms were signed and faxed on 08/03/23. Patient aware, states received call from [facility] stating order was on its way to patient. Jenna Sevilla LPN [facility]06-10-2024 Telephone encounter Note* Telephone Encounter - Katy Faust MD - 08/09/2023 12:50 PM EDT Verify forms were signed and faxed then let patient know [facility]06-04-2024 Telephone encounter Note* Telephone Encounter - Jenna Sevilla LPN - 08/03/2023 1:51 PM EDT Forms received from [facility], patient updated via MOLI and forms forwarded to PCP. Jenna Sevilla LPN [facility]05-31-2024 Telephone encounter Note* Telephone Encounter - Ashlyn Sullivan RN - 07/30/2023 4:09 PM EDT Roof Painter spoke to pt and procedure on 09/30/23 and routing on 09/22/23 is agreeable. [facility]05-31-2024 Miscellaneous Notes* Telephone Encounter - Ashlyn Sullivan RN - 07/30/2023 4:09 PM EDT Roof Painter spoke to pt and procedure on 09/30/23 and routing on 09/22/23 is agreeable. * Telephone Encounter - Kateryna Macedo - 07/30/2023 3:06 PM EDT Jai Luna accepts 09/14 preop but 09/22 surgery is not a good date. documented in this encounterCleveland Clinic [facility]05-31-2024 Telephone encounter Note * Telephone Encounter - Kateryna Macedo - 07/30/2023 3:06 PM EDT Jai Luna accepts 09/14 preop but 09/22 surgery is not a good date. [facility]05-31-2024 Telephone encounter Note* Telephone Encounter - Ashlyn Sullivan RN - 07/30/2023 2:06 PM EDT Roof Painter called pt and left a VM offered 09/22 for EUA and flex sig and route on 09/14 and get his MRI rectum that day as well. [facility]05-31-2024 Miscellaneous Notes* Telephone Encounter - Ashlyn Sullivan RN - 07/30/2023 2:06 PM EDT Roof Painter called pt and left a VM offered 09/22 for EUA and flex sig and route on 09/14 and get his MRI rectum that day as well. documented in this encounterCleveland Clinic [facility]05-29-2024 History of Present illness Narrative* Ramiro Cheung MD - 07/28/2023 4:45 PM EDT COLORECTAL SURGERY VIRTUAL VISIT FOLLOW UP I have communicated my name and active licensure. The patient's identity and physical location wereverified at the time of this visit. Either the patient or their legal pharmaceutical representative has been informed of the risks [...] He had an OV with Dr Muñiz ([facility]) on 07/14/23 for rectal bleeding and it was recommended that he see Dr Cheung again to assess as to the source of the bleeding. Hx: rectal CA, stricture at anastomosis site 07/14/[address] Muñiz ([facility]) - Recommendation is to identify the source of your rectal bleeding - Follow-up with Urology to evaluate for a fistula connection to the urethra - Further surgical intervention is recommended to be pursued with Dr. Cheung or through the [facility] given the complexity of your case. Further work-up prior to surgery should be performed through the [facility] as any further surgical intervention would [...] Procedures / Tests: Colonoscopy, Flexible Sigmoidoscopy Assessment [facility] I have independently interpreted: n/a I have discussed Jai Luna's treatment plan and/or results with patient. Treatment plan: EUA in the OR with flexible sigmoidoscopy I Dutch Cheung MD Risk of morbidity, mortality and/or complications of treatment plan: aníbal I spent a total of 35 minutes on the date of the service which included preparing to see the patient and [id number] patient care. documented in this encounterCleveland Clinic [facility]05-15-2024 History of Present illness Narrative* Sabrina [...] friable, bleeding mucosa Exam chaperoned by female anesthesiology physician assistant. ASSESSMENT/PLAN: Diagnosis Plan 1. Rectal bleeding [...] further work-up/surgical intervention . Sabrina Muñiz MD [facility] Colorectal Surgery [address], [address] [place], [place] [address] p [phone] f [phone] * Belkis Baptiste RN - 07/14/2023 1:30 [...] when ejaculating since surgery. documented in this [facility]05-15-2024 Instructions* Patient Instructions* Belkis Baptiste RN - 07/14/2023 1:30 PM EDT - Recommendation is to identify the source of your rectal bleeding - Follow-up with Urology to evaluate for a fistula connection to the urethra - Further surgical intervention is recommended to be pursued with Dr. Cheung or through the [facility] given the complexity of your case. Further work-up prior to surgery should be performed through the [facility] as any further surgical intervention would be recommended through this institution. documented in this [facility]04-15-2024 SRIDEVI Palacios MA Caller: Unspecified (Today, 8:32 AM) Please review [employer] SECONDARY TEACHER Referral scanned to media today.[facility] 06-14-2023 History of Present illness Narrative* [...] PATIENT PRESENTS WITH AN IMPLANTABLE OR ATTACHED SUPERVISOR YARD: No RADIOLOGY DEPARTMENT: General X-ray: Exam(s) Completed: Upper Extremity X- Ray(s): Shoulder, AP / TRUE AP / AXILLARY left PERIPHERAL IV DATA: Not applicable SIGNED BY: RT Claudia(R) June 14, 2023 8:36 AM documented in this encounterCleveland Clinic [facility]04-15-2024 History of Present illness Narrative* Michael Christian MD - 06/14/2023 8:52 AM EDT Michael Christian MD Department of Orthopaedics Orthopaedics [address] [place] [id number] Dept: [phone] Dept June 14, 2023 CHIEF COMPLAINT: New [...] distribution IMAGING: IMPRESSION: Rotator cuff calcific tendinosis Windows Server Support Technician: PSCB Transcribe Date/Time: Jun 16 2023 4:30P [...] Coronary atherosclerosis of unspecified type of vessel, bill moore's slough or graft Coronary artery disease Diverticulosis of [...] PROSTATE SURGERY HX STRABISMUS RECESSION/RESCJ 1 [facility] Strabismus surgery TONSILLECTOMY HX TONSILLECTOMY PRIMARY/SECONDARY <AGE [...] mouth daily at bedtime. For cholesterol per [facility]. No current facility-administered medications for this visit. Allergies: Cat Dander, Clindamycin, and Codeine ROS: General (negative for fatigue, malaise, weight loss/gain) HEENT (negative for headache, earache, recent vision changes, sinus pain, sore throat) Respiratory (no recent shortness of breath, hemoptysis) CV (negative for chest tightness, palpitations) Musculoskeletal (see HPI) Psych (no depression, anxiety) Michael Christian MD documented in this encounterCleveland Clinic [facility]04-01-2024 History of Present illness Narrative* Mary Anne Alejandro APRN.SOYBEAN GROWER - 05/31/2023 9:59 AM EDT This note [...] same States that he has visited a transport engineer in the past for same Was hoping you would remove it for me Endorses he is currently being worked up for PVD left lower leg The history is provided by the patient. No pediatric speech language pathologist was used. Pain (foot) Pain location: left [...] Coronary atherosclerosis of unspecified type of vessel, bill moore's slough or graft Coronary artery disease Diverticulosis of [...] Status PROSTATE SURGERY [facility] TONSILLECTOMY HX TONSILLECTOMY PRIMARY/SECONDARY <AGE [...] appt) Discussed red flags Mary Anne Alejandro APRN.SOYBEAN GROWER documented in this encounterCleveland Clinic [facility]02-27-2024 History of Present illness Narrative* Bhavna Villatoro RN - 04/27/2023 4:11 PM EST pcp agrees with information * Bhavna Villatoro RN - 04/27/2023 2:21 PM EST patient had inr completed at [facility] patients inr is 2.1 (patients inr [...] for follow up INR. documented in this encounterCleveland Clinic [facility]02-21-2024 Miscellaneous Notes* Telephone Encounter - Jie Abdi MA - 04/21/2023 10:00 AM EST Consult pended, please file if agreeable. Jie Abdi MA documented in this encounterCleveland Clinic [facility]02-13-2024 History of Present illness Narrative* Bhavna Villatoro RN - 04/13/2023 3:57 PM EST pcp agrees with information * Bhavna Villatoro RN - 04/13/2023 2:02 PM EST patient had inr completed at [facility] patients inr is 1.9 (patients [...] for follow up INR. documented in this encounterCleveland Clinic [facility]11-01-2023 Miscellaneous Notes* Telephone Encounter - Elly [...] you. Elly Ash LPN. documented in this encounterCleveland Clinic [facility]10-31-2023 History of Present illness Narrative* Bhavna Villatoro RN - 12/29/2022 6:50 PM EDT pcp agrees with information * Bhavna Villatoro RN - 12/29/2022 2:39 PM EDT patient had inr completed at [facility] patients inr is 2.7 (patients inr [...] follow u p INR. documented in this encounterCleveland Clinic [facility]10-17-2023 History of Present illness Narrative* Bhavna Villatoro RN - 12/15/2022 5:51 PM EDT pcp agrees with information * Bhavna Villatoro RN - 12/15/2022 3:00 PM EDT patient had inr completed at [facility] patients inr is 2.0 (patients inr [...] medication 2 weeks ago documented in this encounterCleveland Clinic [facility]10-05-2023 Surgical operation note* Brief Op Note - Justin William MD - 12/03/2022 11:44 AM EDT BRIEF OPERATIVE / PROCEDURE NOTE LOG ID: [id number] SURGERY/PROCEDURE DATE: 12/03/2022 INCISION/PROCEDURE START TIME: 11:24 AM INCISION CLOSE/PROCEDURE END TIME: 11:37 AM SURGEON(S)/PROCEDURALIST(S) AND ASPHALT STILL OPERATOR(S): Surgeon(s) and Role: * Justin William MD [...] 2022 TIME: 11:45 AM documented in this encounterCleveland Clinic [facility]10-05-2023 History and physical note * Justin [...] Coronary atherosclerosis of unspecified type of vessel, bill moore's slough or graft Coronary artery disease Diverticulosis of [...] PROSTATE SURGERY HX STRABISMUS RECESSION/RESCJ 1 [facility] [place] TONSILLECTOMY HX TONSILLECTOMY PRIMARY/SECONDARY <AGE [...] mouth daily at bedtime. For cholesterol per [facility]. coenzyme Q10 (COENZYME Q-10) 100 [...] 2022 TIME: 11:15 AM documented in this encounterCleveland Clinic [facility]09-29-2023 Miscellaneous Notes* Telephone Encounter - Rebecca Yeh RN - 11/27/2022 2:42 PM EDT You are scheduled for a IVC Filter Removal, On 12/03/2022. You are to arrive at 0900 am for a 1030 procedure time and Report to [facility]: Entrance A, Elevators to first floor, Ambulatory [...] of 1.5 or less forday of procedure. Manager Transition/Transportation: How will you be arriving for your procedure? Private car. You will need a responsible adult to accompany you to and from the procedure. Your stake driver is required to stay with you until you are taken into the procedure room. Please call with any questions [phone] opt 2 to speak with the Radiology Nurses documented in this encounterCleveland Clinic [facility]09-19-2023 History of Present illness Narrative* Bhavna Villatoro RN - 11/17/2022 4:32 PM EDT pcp agrees with information * Bhavna Villatoro RN - 11/17/2022 2:28 PM EDT patient had inr completed at [facility] patients inr is 2.2 (patients inr [...] follow u p INR. documented in this encounterCleveland Clinic [facility]09-18-2023 Miscellaneous Notes* Telephone Encounter - Mady Campbell RN - 11/16/2022 4:19 PM EDT WO nursing returned patient message regarding issues with pouch lifting and "hole" under stoma. Left Message: No spoke directly with patient Information/Recommendations provided regarding Patient had a few issues. He states pouching system (Coloplast Early Branch soft convex drainable) has been working well except for past few weeks. It has been lifting and difficult to get to stick. Patient changed yesterday and so far it is working well. He did not want to come in to see outpatient [facility] nursing at [facility] neither did he want to discuss changing anything at all because it is "so far working well this time". 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 Biggest conversation centered around his inability to cancel his vascular IR appointment and reschedule. He has been "getting the run around for days". This [facility] nurse attempted to find out how he would do this without luck. Time spent: 30 minutes SCOTTIE Hernandez, RN, CWOCN documented in this encounterCleveland Clinic [facility]09-05-2023 History of Present illness Narrative* Bhavna [...] PM EDT patient had inr completed at [facility] patients inr is 1.8 (patients inr [...] greens over the week documented in this encounterCleveland Clinic [facility]09-05-2023 Miscellaneous Notes* Telephone Encounter - Maddison Kohler RN - 11/03/2022 1:42 PM EDT patient is scheduled thank you! * Telephone Encounter - Maddison Kohler RN - 11/03/2022 1:02 PM EDT left a message on home phone and spoke with the patient's ( patient is with his ) patient needs Carotid US patient in agreement message routed to [facility] to assist with scheduling [place] prefers imaging closer to his home if possible thank you documented in this encounterCleveland Clinic [facility]09-05-2023 Instructions* Patient Instructions* Terry Cifuentes MD [...] PRIOR TO YOUR VISIT. documented in this encounterCleveland Clinic [facility]09-05-2023 History of Present illness Narrative* Terry Cifuentes MD - 11/03/2022 10:00 AM EDT Images from the original note were not included. [facility] [place] Kira John Department of Cardiovascular Medicine SECTION [...] was resumed. 07/20/2022 underwent LLE VDU at [facility]: New symptoms or concerns: walking is painful, [...] Coronary atherosclerosis of unspecified type of vessel, bill moore's slough or graft Coronary artery disease Diverticulosis of [...] PROSTATE SURGERY HX STRABISMUS RECESSION/RESCJ [facility] TONSILLECTOMY HX TONSILLECTOMY PRIMARY/SECONDARY <AGE [...] the proximal calf. Technologist: Isis Flynn RVT, [facility] Ordering physician: YESSICA TINOCO Interpreting physician: [...] Abs Lymph 1.00 - 4.00 k/uL 1.24 [place]% % 14.6 Abs [place] <0.87 k/uL 0.78 [place]% % 3.7 Abs [...] REMOVAL, COMPRESSION STOCKINGS (Z79.01) Current use of director long term care anticoagulation (R09.89) Bruit of right carotid artery [...] patient was found acute DVT 06/2021 (at [facility], no access to imaging), following which his [...] anticoagulation Request venous duplex US imaging from [facility] (06/2022) Carotid duplex US to evaluate asymptomatic [...] CC: Katy Faust MD documented in this encounterCleveland Clinic [facility]08-24-2023 Miscellaneous Notes* Telephone Encounter - Yessica Tinoco APRN.CNP - 10/22/2022 4:41 PM EDT INTERVENTIONAL RADIOLOGY PATIENT APPOINTMENT REQUEST October 22, 2022 Jai Luna [id number] Request: Schedule Requestor: Yessica Tinoco APRN.CNP Ref.Physician: [...] Location of Procedure: NA documented in this encounterCleveland Clinic [facility]08-02-2023 Miscellaneous Notes* Telephone Encounter - Yessica [...] Sent a message to the patient via [employer] to schedule US DVT and have follow up appt with vascular medicine. Yessica Tinoco APRN.CHELSIE documented in this encounterCleveland Clinic [facility]07-10-2023 History of Present illness Narrative* Bhavna Villatoro RN - 09/07/2022 4:05 PM EDT pcp agrees with information * Bhavna Villatoro RN - 09/07/2022 11:57 AM EDT patient had inr completed at [facility] patients inr is 2.0 (patients inr [...] for follow up INR. documented in this encounterCleveland Clinic [facility]06-27-2023 History of Present illness Narrative* Bhavna Villatoro RN - 08/25/2022 5:17 PM EDT pcp agrees with information * Bhavna Villatoro RN - 08/25/2022 9:45 AM EDT patient had inr completed at [facility] patients inr is 1.8 (patients inr [...] in diet last week documented in this encounterCleveland Clinic [facility]06-13-2023 History of Present illness Narrative* Bhavna Villatoro RN - 08/11/2022 4:30 PM EDT pcp agrees with information * Bhavna Villatoro RN - 08/11/2022 2:22 PM EDT patient had inr completed at [facility] patients inr is 2.5 (patients inr [...] reading since dose change documented in this encounterCleveland Clinic [facility]06-05-2023 History of Present illness Narrative* Bhavna Villatoro RN - 08/03/2022 5:03 PM EDT pcp agrees with recommendation PATIENT NOTIFIED OF INFORMATION * Bhavna Villatoro RN - 08/03/2022 12:17 PM EDT patient had inr completed at [facility] patients inr is 3.2 (patients inr [...] up inr on 08/11/22 documented in this encounterCleveland Clinic [facility]06-05-2023 Miscellaneous Notes* Telephone Encounter - Bhavna Villatoro RN - 08/03/2022 12:24 PM EDT Patient is a new patient to the [facility] and we are needing new standing orders for testing. Orders have been pended for review and file if able. CC only needs called if orders cannot be filed. Thanks documented in this encounterCleveland Clinic [facility]05-30-2023 Miscellaneous Notes* Telephone Encounter - Norm [...] rechecked? Cony Raygoza RN documented in this encounterCleveland Clinic [facility]05-10-2023 Miscellaneous Notes* Telephone Encounter - Ginger Ingram LPN - 07/08/2022 4:37 PM EDT Phoned Vicki at [facility] and went over notes from Norm Parker SECONDARY TEACHER with understanding. * Telephone Encounter - Norm Parker APRN.CNP - 07/08/2022 3:33 PM EDT Ok for the 2 times weekly. * Telephone Encounter - Ginger Ingram LPN - 07/08/2022 3:28 PM EDT Vicki from [facility] calling said with patient office notes from yesterday the SECONDARY TEACHER says on average patient changes ostomy bag 1-2 times weekly but depends on the week up to 4 times a week. Theycan only give the patient ostomy supplies for 2 times weekly, unless the office notes are changed to say he changes ostomy bag 4 times weekly. Please advise documented in this encounterCleveland Clinic [facility]05-08-2023 Miscellaneous Notes* Telephone Encounter - Coral Charles RN - 07/06/2022 3:53 PM EDT Patient has appointment with Norm on 07/07 and will discuss with her then. Coral Charles RN documented in this encounterCleveland Clinic [facility]03-28-2023 Miscellaneous Notes* Telephone Encounter - Jenna [...] into the office today and dropped off [facility] Juror excuse form. Patient has filled it but needs letter signed by primary excusing patient from jury duty. Patient states he was dx with cancer and recently had procedure done. He doesn't feel like he could sit through court due to discomfort and he is having to go to the bedroom frequently. Please mail form and letter back to [facility] Jury Commission with enclosed envelope. Form is at nurse's pod documented in this encounterCleveland Clinic [facility]03-22-2023 History of Present illness Narrative* Ramiro [...] done yet. His case was presented to [facility] where it was recommended to proceed with danielle cut biopsy, which was done and revealed Invasive moderately differentiated squamous cell carcinoma. He completed Modified Charlene chemoradiation on Jul 21 2021, completed restaging in August, and [facility] [facility] It was recommended that he follow up in three months to assess response to determine if he can proceed with watch and wait or should have surgery. He had this follow up on 12.10.2021 and was presented to [facility] on 12.17.2021 where it was recommended [...] - BEFORE AND AFTER COMPARISON) Findings: on MARIJAOSE- there was a firm hardness posteriorly in the rectum on flexible sigmoidoscopy, there was a small ulcer and white scar where the tumor used to be, however no mass visualised today Impression: - No specimens collected 05/21/21 TB RECS Other Discussion: Rectal SCC. Modified Charlene for now Aggressive tms RECTAL SCC might need Proctectomy subsequently PT called and expecting a call from [facility]. After initial visit at [facility] likely will get the treatment in [place] and come back for surgery if indicated. [...] of treatment plan: high documented in this encounterCleveland Clinic [facility] History of Present illness Narrative* Mary Anne Pierre RN - 05/20/2022 3:03 PM EDT ET/WOCN Nursing Consult Topic: ET/WOCN Consultation Note ET Outcome: Patient seen in the outpatient clinic accompanied to see Dr. Cheung and [facility] nursing for discussion about stoma closure. No [...] Pierre RN, BSN, CWOCN documented in this encounterCleveland Clinic [facility]03-22-2023 Instructions* Patient Instructions* Terry Balderrama MD - 05/20/2022 12:23 PM EDT PLEASE PLAN TO HOLD ELIQUIS FOR 4 DAYS PRIOR TO SURGERY. SCHEDULE ULTRASOUND OF THE LEGS IN THE [facility] THE RESULTS OF THE ULTRASOUND WILL DETERMINE THE BLOOD THINNER MANAGEMENT AFTER DISCHARGE. THIS IS TO BE DETERMINED. NO PLANS TO REMOVE THE FILTER UNTIL AFTER THE SURGERY. I WILL ADVISE FURTHER. PLAN TO SCHEDULE 6 WEEKS FOLLOW UP AFTER YOUR SURGERY WITH ME documented in this encounterCleveland Clinic [facility]03-22-[facility]23 History of Present illness Narrative* Terry Balderrama MD - 05/20/2022 12:09 PM EDT Images from the original note were not included. [facility] [place] Kira John Department of Cardiovascular Medicine SECTION [...] Abs Lymph 1.00 - 4.00 k/uL 1.44 [place]% % 9.4 Abs [place] <0.87 k/uL 0.82 E[place]% % 1.3 Abs [...] MD Ramiro Feliciano MD documented in this encounterCleveland Clinic [facility]03-22-2023 Instructions* Patient Instructions* Abundio Prado APRN.ZINA HOLGUIN - 05/20/2022 10:09 AM EDT PATIENT PREOPERATIVE INSTRUCTIONS Ramiro Cheung MD has scheduled you for your procedure at this surgery center: [facility] [place] Scheduling Office: [phone] --[address] [place] [address]. Please read below carefully for your personalized [...] Procedures: - YOU MUST HAVE A RESPONSIBLE RENTAL BOATS CARETAKER TAKE YOU HOME. A INVESTOR OR CHANGE MANAGEMENT SPECIALIST CANNOT BE MADE A RESPONSIBLE RENTAL BOATS CARETAKER. - We recommend that a responsible person [...] call the Wednesday before. Your surgeon s diabetes territory manager will tell you what time to call the office. - If you have not reached the departmental diabetes territory manager by 5 P.M., call [phone] after 5 P.M. the day before your surgery. Please be aware that emergency situations arise, which may delay or change your surgical time. If this happens, we will notify you as soon as possible and regret any inconvenience. If you already have an Advance Directive, please fax a copy to [phone] or email to for it to be [...] DORIS Prado APRN.CNP, DNP documented in this encounterCleveland Clinic [facility]03-[facility]23 History and physical note * Abundio [...] Coronary atherosclerosis of unspecified type of vessel, bill moore's slough or graft Coronary artery disease Diverticulosis of [...] PROSTATE SURGERY HX STRABISMUS RECESSION/RESCJ 1 [facility] Strabismus surgery TONSILLECTOMY HX TONSILLECTOMY PRIMARY/SECONDARY <AGE [...] aid. Neuro: No history of TIA's, stroke, SPECIAL EVENTS COORDINATOR tumor, impaired sensorium, hemiplegia, paraplegia or quadraplegia. No neurological symptoms or problems. Respiratory: No history of current cough or dyspnea, or pneumonia in the past 6 weeks. No history of respiratory/pulmonary symptoms or problems. 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 -Follows with vascular medicine here at [facility] - scheduled to see vascular, Dr. Terry [...] NORMAL ECG Confirmed by WINTER BROOKS MD ([id number]) on 03/15/2022 8:20:19 PM Most recent Echo [...] 2022 TIME: 9:53 AM documented in this encounterCleveland Clinic [facility]03-[facility] History of Present illness Narrative* Jie [...] 20, 2022 8:51 AM documented in this encounterCleveland Clinic [facility]03-[facility] History of Past illness Narrative* Problem [...] of this encounter (statuses as of 07/09/2022) [facility] of Past illness Narrative* Problem [...] of this encounter (statuses as of 07/28/2022) [facility] of Past illness Narrative* Problem [...] of this encounter (statuses as of 08/04/2022) [facility] of Past illness Narrative* Problem [...] of this encounter (statuses as of 08/12/2022) [facility] of Past illness Narrative* Problem [...] of this encounter (statuses as of 08/17/2022) [facility] of Past illness Narrative* Problem [...] of this encounter (statuses as of 08/19/2022) [facility] of Past illness Narrative* Problem [...] of this encounter (statuses as of 08/26/2022) [facility] of Past illness Narrative* Problem [...] of this encounter (statuses as of 09/08/2022) [facility] of Past illness Narrative* Problem [...] of this encounter (statuses as of 09/30/2022) [facility] of Past illness Narrative* Problem [...] of this encounter (statuses as of 09/30/2022) [facility] of Past illness Narrative* Problem [...] of this encounter (statuses as of 10/02/2022) [facility] of Past illness Narrative* Problem [...] of this encounter (statuses as of 10/21/2022) [facility] of Past illness Narrative* Problem [...] of this encounter (statuses as of 11/04/2022) [facility] of Past illness Narrative* Problem [...] of this encounter (statuses as of 11/04/2022) [facility] of Past illness Narrative* Problem [...] of this encounter (statuses as of 11/04/2022) [facility] of Past illness Narrative* Problem [...] of this encounter (statuses as of 11/05/2022) [facility] of Past illness Narrative* Problem [...] of this encounter (statuses as of 11/16/2022) [facility] of Past illness Narrative* Problem [...] of this encounter (statuses as of 11/17/2022) [facility] of Past illness Narrative* Problem [...] of this encounter (statuses as of 11/18/2022) [facility] of Past illness Narrative* Problem [...] of this encounter (statuses as of 11/28/2022) [facility] of Past illness Narrative* Problem [...] of this encounter (statuses as of 12/05/2022) [facility] of Past illness Narrative* Problem [...] of this encounter (statuses as of 12/16/2022) [facility] of Past illness Narrative* Problem [...] of this encounter (statuses as of 12/30/2022) [facility] of Past illness Narrative* Problem [...] of this encounter (statuses as of 04/13/2023) [facility] of Past illness Narrative* Problem [...] of this encounter (statuses as of 04/23/2023) [facility] of Past illness Narrative* Problem [...] of this encounter (statuses as of 04/28/2023) [facility] of Past illness Narrative* Problem [...] of this encounter (statuses as of 05/31/2023) [facility] of Past illness Narrative* Problem [...] resolved with good UOP 02/06 Good UOP, FINESES resolved. Given O2 requirement might still be [...] of this encounter (statuses as of 06/11/2023) [facility] of Past illness Narrative* Problem [...] of this encounter (statuses as of 06/15/2023) [facility]03[facility] Miscellaneous Notes* Telephone Encounter - Liz Xavier APRN.CNP - 04/29/2022 5:15 PM EST Telephone Encounter~ Person of Contact: Pt Reason for Call: discuss IVC Filter appointment Outcome of Call: Pt will reschedule his IR IVC Austin removal consult until after follow up &surgery. Pt will complete follow up with Vascular Medicine 05/20/22. Pt recently switched from Lovenox to Eliquis. staff contacted with plan of care. Planned colorectal surgery 06/04/22 Contact Number Given: Yes Number of minutes: A total of (10) minutes was spent on this encounter Liz Xavier APRN.CNP April 29, 2022 documented in this encounterCleveland Clinic [facility]02-24-2023 Miscellaneous Notes* Telephone Encounter - Leandro Cruz RN - 04/24/2022 2:[address] Ramiro Cheung; This message is to inform you that your patient has been discharged from skilled home health services as of 04/23/22. Goals met. Thank you for choosing [facility] for [facility] to serve your patient's home careneeds. Leandro Cruz RN documented in this encounterCleveland Clinic [facility]02-23-2023 Miscellaneous Notes* SN Agency DC - Doris Rivera RN - 04/23/2022 11:35 AM EST SITUATION: [facility] agency discharge visit completed today. spouse also [...] performed. Specific SN discharge instructions: Access the [facility] ostomy and wound department as a [...] for additional medical questions/concerns. documented in this encounterCleveland Clinic [facility]02-22-2023 History of Present illness Narrative* Katy Faust MD - 04/22/2022 4:48 PM EST This note was created using [employer]. Subjective Jai Luna is a 72 year [...] Coronary atherosclerosis of unspecified type of vessel, bill moore's slough or graft Coronary artery disease Diverticulosis of colon (without mention of hemorrhage) Dyslipidemia 01/16/2013 History of transfusion Hypertension Rectal malignant neoplasm (HCC) 05/29/2021 Rectal mass Current Outpatient Medications Medication Sig apixaban (ELIQUIS) 5 mg tab(s) Take 1 tablet by mouth twice daily. atorvastatin (LIPITOR) 40 mg tablet Take 1 tablet by mouth daily at bedtime. For cholesterol per [facility]. coenzyme Q10 (COENZYME Q-10) 100 [...] PROSTATE SURGERY HX STR[facility]ISMUS [facility]J [facility] [place] [place] TONSILLECTOMY HX TONSILLECTOMY PRIMARY/SECONDARY <AGE [...] coronary artery bypass graft Z95.1 follows with [facility] 6. Dyslipidemia E78.5 On Lipitor [...] indicated. Katy Faust MD documented in this encounterCleveland Clinic [facility]02-22-2023 Miscellaneous Notes* PT DISCHARGE - Estefany [...] summary for intervention/education details. documented in this encounterCleveland Clinic [facility]02-21-2023 Miscellaneous Notes* PT ROUTINE/REASSESSMENT/RECERT/CASE MGMT - Isela Patrizia, SPORTS EDITOR - 04/21/2022 11:05 AM EST SITUATION: spouse [...] summary for intervention/education details. documented in this encounterCleveland Clinic [facility]02-17-2023 Miscellaneous Notes* PT ROUTINE/REASSESSMENT/RECERT/CASE MGMT - Isela Acharya PTA - 04/17/2022 11:14 AM EST SITUATION: only patient present during today's visit. patient reports the following since the last homecare visit: medications/allergies--no changes, no fall. patient reports he has had low BP today. [facility] nurse called today during her visit [...] summary for intervention/education details. documented in this encounterCleveland Clinic [facility]02-17-2023 Miscellaneous Notes* CARE COORDINATION - Leandro Cruz RN - 04/17/2022 10:55 AM EST 04/13/22 11:00am SN contacted [facility] for follow up on 04/17/22 regarding the whereabouts of the "drop-ship" order placed on 04/09/22. This SN spoke with "Josh," he investigated with the scarfer operator and discovered there is low availablility of [...] arrive today via [employer]. documented in this encounterCleveland Clinic [facility]02-15-2023 Miscellaneous Notes* PT ROUTINE/REASSESSMENT/RECERT/CASE MGMT - [...] summary for intervention/education details. documented in this encounterCleveland Clinic [facility]02-13-2023 Miscellaneous Notes* Telephone Encounter - Ladan Oviedo - 04/13/2022 12:15 PM EST April 13, 2022 [id number] Patient Name: Jai Luna Contact Information: DERRICK Callejas [facility] Reason For Call:Patient Update Britta from [facility] called with an update on the patient. She stated that he is feeling much better, vital signs are stable, can tolerate activity. Patient feels much better than last . Physician:Terry Cifuentes MD documented in this encounterCleveland Clinic [facility]02-13-2023 Miscellaneous Notes* SN Routine - Britta Mantilla RN - 04/13/2022 11:36 AM EST SITUATION: [facility] routine visit completed today. spouse also present [...] at end ofcert period. documented in this encounterCleveland Clinic [facility]2023 Miscellaneous Notes* HH SN Routine - Britta Mantilla RN - 04/09/2022 10:21 AM EST SITUATION: [facility] routine visit completed today. spouse also present [...] demonstration for ostomy care. documented in this encounterCleveland Clinic [facility]02-08-2023 Miscellaneous Notes* Telephone Encounter - Don [...] EST Don, can we send him to [facility] to have the stat potassium drawn? [...] 3:35PM. Jerilyn Mariscal LPN documented in this encounterCleveland Clinic [facility]02-07-2023 Miscellaneous Notes* PT ROUTINE/REASSESSMENT/RECERT/CASE MGMT - [...] summary for intervention/education details. documented in this encounterCleveland Clinic [facility]02-06-2023 History of Present illness Narrative* Norm Parker APRN.SOYBEAN GROWER - 04/06/2022 3:02 PM EST SUBJECTIVE Jai [...] Cheung for his surgeon, Dr. Antoine forhis fire engine pump operator (history of prior CABG), and Dr. 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 2. Malignant neoplasm of colon, unspecified part of colon (HCC) - ICD9: 153.9, ICD10: C18.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) - ICD9: V44.2, ICD10: Z93.2 Working with [facility] on care of this, hopeful for [...] medications.. Norm Parker APRN-CHELSIE documented in this encounterCleveland Clinic [facility]02-06-2023 Miscellaneous Notes* SN Routine - Britta Mantilla RN - 04/06/2022 1:16 PM EST SITUATION: [facility] routine visit completed today. spouse also present [...] discipline dc next week. documented in this encounterCleveland Clinic [facility]02-03-2023 Miscellaneous Notes* PT ROUTINE/REASSESSMENT/RECERT/CASE MGMT - [...] summary for intervention/education details. documented in this encounterCleveland Clinic [facility]02-02-2023 Miscellaneous Notes* SN Routine - Britta Mantilla RN - 04/02/2022 5:01 PM EST SITUATION: [facility] routine visit completed today. spouse also present [...] am, he had appts for ultrasounds at [facility] today. He is tolerating more activity that [...] nursing within 2-3 weeks. documented in this encounterCleveland Clinic [facility]02-01-2023 Miscellaneous Notes* Telephone Encounter - Smitha Dawson RN - 04/01/2022 8:45 AM EST Called and spoke with patient He can't come off anticoagulant until May Will schedule surgery 06.04.22 and preop 05.20.2022 * Telephone Encounter - Smitha Dawson RN - 04/01/2022 8:29 AM EST Called and spoke with patient He can't come off anticoagulant until May * Telephone Encounter - Kateryna Sandoval [facility] - 03/31/2022 4:15 PM EST [phone] Jai Luna called to schedule surgery. documented in this encounterCleveland Clinic [facility]01-31-2023 Miscellaneous Notes* PT ROUTINE/REASSESSMENT/RECERT/CASE MGMT - [...] summary for intervention/education details. documented in this encounterCleveland Clinic [facility]01-30-2023 Miscellaneous Notes* SN Routine - Britta Mantilla RN - 03/30/2022 2:16 PM EST SITUATION: [facility] routine visit completed today. spouse also present [...] for ostomy pouch change. documented in this encounterCleveland Clinic [facility]01-27-2023 Miscellaneous Notes* PT ROUTINE/REASSESSMENT/RECERT/CASE MGMT - Isela Acharya, SPORTS EDITOR - 03/27/2022 2:05 PM EST SITUATION: spouse [...] summary for intervention/education details. documented in this encounterCleveland Clinic [facility]01-26-2023 Miscellaneous Notes* SN Routine - Doris Rivera RN - 03/26/2022 11:50 AM EST SITUATION: [facility] routine visit completed today. spouse also present [...] how did it work? documented in this encounterCleveland Clinic [facility]01-25-2023 Miscellaneous Notes* PT ROUTINE/REASSESSMENT/RECERT/CASE MGMT - [...] summary for intervention/education details. documented in this encounterCleveland Clinic [facility]01-24-2023 Miscellaneous Notes* SN Routine - Britta Mantilla RN - 03/24/2022 10:06 AM EST SITUATION: [facility] routine visit completed today. spouse also present [...] ring. Abdomen is soft, pt reports is flume tender on the inside. Edema to L [...] only assist if needed. documented in this encounterCleveland Clinic [facility]01-23-2023 History of Present illness Narrative* Isaura Benítez RN - 03/23/2022 2:26 PM EST ET/WOCN Nursing Consult Topic: ET/WOCN Consultation Note Outcome: Patient and spouse in A30 for post-op visit. Current pouching system appropriate but smaller aperture needed. New pattern made. Patient is currently being followed by [facility] and they are assisting him with [...] Soft Convex (5/8"-1 16") Cut-to-Fit Drainable Pouch (#[id number]), 4.2 Coloplast Brava Moldable Ring (#[id number]), elastic barrier strips Wearing time: 3 days [...] Benítez RN, BSN, CWOCN documented in this encounterCleveland Clinic [facility]01-23-2023 History of Present illness Narrative* Skyla Alex, MAIL ROOM CLERK.SOYBEAN GROWER - 03/23/2022 1:30 PM EST COLORECTAL SURGERY [...] mouth daily at bedtime. For cholesterol per [facility]. metoprolol tartrate, short acting, (LOPRESSOR) [...] Anal area with mild erythema, MARIAJOSE deferred Paperhanger present: Yes, Alycia Nunn Rectal Cancer Tumor Board Post-Operative Discussion Note Date of conference: 02/11/2022 Date of surgery: 01/27/2022 Pre-treatment clinical stage: T3dN+ Pre-treatment CEA level: CEA (ng/mL) Date Value 06/09/2021 2.2 Neoadjuvant therapy prior to surgery: Yes: Other: CHARLENE protocol Neoadjuvant therapy date of completion: 07/21/2021 He completed Modified Charlene chemoradiation on July 21, completed restaging in August, and was [facility]. It was recommended that [...] oncology for surveillance Will send message to [place] to coordinate tentative pending preops and clearance by Dr. Cheung- will need to coordinate with vascular not sure when he can stop blood thinner [facility] medicine Dr. Balderrama: PLEASE LET ME [...] BLEEDING Skyla Alex APRN.CNP documented in this encounterCleveland Clinic [facility]01-23-2023 Instructions* Patient Instructions* Terry Balderrama MD [...] CONTINUE MONITORING FOR BLEEDING documented in this encounterCleveland Clinic [facility]01-23-2023 History of Present illness Narrative* Terry Balderrama MD - 03/23/2022 11:00 AM EST Images from the original note were not included. [facility] [place] Kira John Department of Cardiovascular Medicine SECTION [...] Coronary atherosclerosis of unspecified type of vessel, bill moore's slough or graft Coronary artery disease Diverticulosis of [...] PROSTATE SURGERY HX STRABISMUS RECESSION/RESCJ [facility] [place] [place] TONSILLECTOMY HX TONSILLECTOMY PRIMARY/SECONDARY <AGE 12 Tonsillectomy VASCULAR SURGERY PROCEDURE Allergies: Clindamycin and Codeine CURRENT MEDICATIONS: Current Outpatient Medications Medication Sig atorvastatin (LIPITOR) 40 mg tablet Take 1 tablet by mouth daily at bedtime. For cholesterol per [facility]. enoxaparin (LOVENOX) 80 mg/0.8 mL [...] PRN TERRY BALDERRAMA MD documented in this encounterCleveland Clinic [facility]01-19-2023 Miscellaneous Notes* PT ROUTINE/REASSESSMENT/RECERT/CASE MGMT - [...] summary for intervention/education details. documented in this encounterCleveland Clinic [facility]01-19-2023 Miscellaneous Notes* SN Routine - Britta Mantilla RN - 03/19/2022 9:03 AM EST SITUATION: [facility] routine visit completed today. spouse also present [...] ostomy care, CP assessment. documented in this encounterCleveland Clinic [facility]01-18-2023 History of Present illness Narrative* Russ [...] well. Russ Monteiro MD documented in this encounterCleveland Clinic [facility]01-18-2023 Instructions* Patient Instructions* Russ Monteiro MD - 03/18/2022 12:00 PM EST BLOOD WORK TODAY. documented in this encounterCleveland Clinic [facility]01-15-2023 Miscellaneous Notes* SN Routine - Britta Mantilla RN - 03/15/2022 2:31 PM EST SITUATION: [facility] routine visit completed today. spouse also present [...] pouch change, CP assessment. documented in this encounterCleveland Clinic [facility]01-14-2023 Miscellaneous Notes* CARE COORDINATION - Savanna Galan RN - 03/14/2022 12:33 PM EST see case comm documented in this encounterCleveland [facility]23 Miscellaneous Notes* Telephone Encounter - Leandro Curz RN - 03/12/2022 12:[address]I Dutch Cheung; Patient was not independent with ostomy care prior to being readmitted to hospital on 03/02/22-03/10/22. He is being seen today per therapy for a resumption of home health care. He will also need a referral for correction to continue ostomy instruction and care. Please have your office contact [facility] to place the SN EVAL order. We would like to be able to see him by tomorrow if possible. Thank you in advance for your review of this request. Leandro Cruz RN-[facility]. documented in this encounterC[facility] Clinic [facility]01-12-[facility]23 Miscellaneous Notes* PT SOC/NORRIS/FOLLOW UP/OTHER - [...] Precautions: no lifting ASSESSMENT: Patient evaluated [facility] therapy. Reviewed and explained [...] SNfor post ostomy care . T/c to Charge Master Coordinator Bhavna Cruz who obtained nursing orders See intervention summary for intervention/education details. documented in this encounterCleveland Clinic [facility]01-05-2023 Miscellaneous Notes* Telephone Encounter - Leandro Cruz RN - 03/05/2022 9:[address] Ramiro Cheung; This message is to alert you that your home health patient was [facility] to [facility] 03/[facility]22 for bilateral PE. All home health services have been placed on HOLD at this time. Leandro Cruz RN-[facility]. documented in this encounterCleveland Clinic [facility]01-04-2023 Miscellaneous Notes* Telephone Encounter - Tejal Hawkins LPN - 03/04/2022 10:24 AM EST Welcome Home Call: a. Date and Time: 10:24 AM 03/04/2022 b. Contact name/relationship: Marilu (Spouse) c. Have you been active with any Home Care company in the last 60 days(such as help with bathing, filling medications, checking your blood pressure) ? Yes, active with [facility]. d. Was patient given Flu shot this Season (After Oct,): No: na e. [facility] will be providing your care, are you agreeable to starting these services? yes (yes or no) f. Do you have any upcoming appointments in the next few days, or restrictions to your schedule? no g. Caregiver: Marilu (Spouse) h. Confirmed Visited Location and preferred #: [phone] Please keep our your medications both over the counter and prescribed out for the home care to review, your hospital discharge instructions and write down any questions you might have. In order to maintain a safe environment for our caregivers, [facility] requires anyanimals or weapons present in the home be located in a secured location. Our clinicians will call you the night before or the morning of the appointment. Their # may come up restricted but they'll leave a VM for you. In case you have any questions or concerns in the meantime, our # is [phone], option 5 Thank you for your time and have a great day. Tejal Hawkins LPN documented in this encounterCleveland Clinic [facility]01-04-2023 Miscellaneous Notes* Telephone Encounter - Tejal Hawkins LPN - 03/04/2022 10:22 AM EST Jermaine MENDEZ, PHD Please advise if you are agreeable to signing and following for [facility] services? Our Clinicians will be sending the Plan of Care to you for review and approval. They will reach out for any appropriate orders required to provide home care services for the patient. We are not able to initiate HHC services without a following provider. Home care clinicians may also obtain orders from [facility] Virtualist Providers Thank you and we [...] care clinicians may also obtain orders from [facility] Virtualist Providers Thank you and we would be happy to answer any questions. Holly Rivera LPN Central Admissions Intake Nurse 03/03/2022 11:53 AM documented in this encounterCleveland Clinic [facility]01-03-2023 Miscellaneous Notes* HH CARE COORDINATION - Leandro Cruz RN - 03/03/2022 8:30 AM EST SN contacted Dr.I Dutch Cheung on 03/05/21 for the following: patient has been admitted [facility] 03/02/22 for bilateral PE's. documented in this encounterCleveland Clinic [facility]01-01-2023 Miscellaneous Notes* Telephone Encounter - Deborah [...] speaks in single words) Protocols used: Chest Xjtl-AHGWG-IE documented in this encounterCleveland Clinic [facility]12-30-2022 Hospital Discharge instructions Additional Instructions Follow-up with Dr. Cheung at the [facility] in the next 1 to 2 weeks. Return with increased rectal bleeding, new or worsening symptoms.[facility] Work Phone: [phone]) [phone] Miscellaneous Notes* PT EVALUATION - Estefany Stern, [...] Precautions: no lifting ASSESSMENT: [facility]. Reviewed and explained [...] summary for intervention/education details. documented in this encounterCleveland Clinic [facility]12-28-2022 Miscellaneous Notes* SN SOC - Jovanna Heaton RN - 02/25/2022 9:35 AM EST SITUATION: [facility] SOC visit completed today. spouse also present during today's visit. 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 Ostomy to RLQ noted, ostomy care completed, [...] care and wound care documented in this encounterCleveland Clinic [facility]12-19-2022 History of Past illness Narrative* Problem [...] of this encounter (statuses as of 03/04/2022) [facility] of Past illness Narrative* Problem [...] of this encounter (statuses as of 03/05/2022) [facility] of Past illness Narrative* Problem [...] of this encounter (statuses as of 03/05/2022) [facility] of Past illness Narrative* Problem [...] of this encounter (statuses as of 03/06/2022) [facility] of Past illness Narrative* Problem [...] of this encounter (statuses as of 03/06/2022) [facility] of Past illness Narrative* Problem [...] of this encounter (statuses as of 03/12/2022) [facility] of Past illness Narrative* Problem [...] of this encounter (statuses as of 03/14/2022) [facility] of Past illness Narrative* Problem [...] of this encounter (statuses as of 03/18/2022) [facility] of Past illness Narrative* Problem [...] of this encounter (statuses as of 03/19/2022) [facility] of Past illness Narrative* Problem [...] of this encounter (statuses as of 03/19/2022) [facility] of Past illness Narrative* Problem [...] of this encounter (statuses as of 03/23/2022) [facility] of Past illness Narrative* Problem [...] of this encounter (statuses as of 03/23/2022) [facility] of Past illness Narrative* Problem [...] of this encounter (statuses as of 03/23/2022) [facility] of Past illness Narrative* Problem [...] of this encounter (statuses as of 03/25/2022) [facility] of Past illness Narrative* Problem [...] of this encounter (statuses as of 03/26/2022) [facility] of Past illness Narrative* Problem [...] of this encounter (statuses as of 03/26/2022) [facility] of Past illness Narrative* Problem [...] of this encounter (statuses as of 03/27/2022) [facility] of Past illness Narrative* Problem [...] of this encounter (statuses as of 03/31/2022) [facility] of Past illness Narrative* Problem [...] of this encounter (statuses as of 04/01/2022) [facility] of Past illness Narrative* Problem [...] of this encounter (statuses as of 04/03/2022) [facility] of Past illness Narrative* Problem [...] of this encounter (statuses as of 04/06/2022) [facility] of Past illness Narrative* Problem [...] of this encounter (statuses as of 04/07/2022) [facility] Past illness Narrative* Problem [...] of this encounter (statuses as of 04/07/2022) [facility] of Past illness Narrative* Problem [...] of this encounter (statuses as of 04/08/2022) [facility] of Past illness Narrative* Problem [...] of this encounter (statuses as of 04/08/2022) [facility] illness Narrative* Problem [...] of this encounter (statuses as of 04/09/2022) [facility] of Past illness Narrative* Problem [...] of this encounter (statuses as of 04/13/2022) [facility] of Past illness Narrative* Problem [...] of this encounter (statuses as of 04/14/2022) [facility] Past illness Narrative* Problem [...] of this encounter (statuses as of 04/15/2022) [facility] of Past illness Narrative* Problem [...] of this encounter (statuses as of 04/17/2022) [facility] of Past illness Narrative* Problem [...] & Plan: Assessment: extubated 02/05 Mild b/l GYOO atelectasis, satting 98-99% on RA 02/06 Requiring [...] of this encounter (statuses as of 04/21/2022) [facility] of Past illness Narrative* Problem [...] of this encounter (statuses as of 04/22/2022) [facility] illness Narrative* Problem [...] of this encounter (statuses as of 04/24/2022) [facility] illness Narrative* Problem [...] of this encounter (statuses as of 04/24/2022) [facility] Past illness Narrative* Problem [...] of this encounter (statuses as of 04/30/2022) [facility] illness Narrative* Problem [...] of this encounter (statuses as of 05/20/2022) [facility] illness Narrative* Problem [...] of this encounter (statuses as of 05/20/2022) [facility] illness Narrative* Problem [...] of this encounter (statuses as of 05/20/2022) [facility] illness Narrative* Problem [...] of this encounter (statuses as of 05/21/2022) [facility] illness Narrative* Problem [...] of this encounter (statuses as of 05/21/2022) [facility] illness Narrative* Problem [...] of this encounter (statuses as of 05/22/2022) [facility] illness Narrative* Problem [...] of this encounter (statuses as of 05/25/2022) [facility] Past illness Narrative* Problem [...] of this encounter (statuses as of 05/26/2022) [facility] of Past illness Narrative* Problem [...] of this encounter (statuses as of 05/29/2022) [facility] illness Narrative* Problem [...] of this encounter (statuses as of 06/02/2022) [facility] Past illness Narrative* Problem [...] of this encounter (statuses as of 06/05/2022) [facility] of Past illness Narrative* Problem [...] of this encounter (statuses as of 07/07/2022) [facility]12-14-2022 Miscellaneous Notes* Telephone Encounter - Tejal Hawkins LPN - 02/11/2022 4:36 PM EST Per [facility] cm, Dr Cheung will follow * Telephone [...] care clinicians may also obtain orders from [facility] Virtualist Providers Thank you and we would be happy to answer any questions. Tejal Hawkins LPN 02/11/2022 11:51 AM documented in this encounterCleveland Clinic [facility]12-14-2022 Miscellaneous Notes* Telephone Encounter - Radha [...] Season (After Oct,): No: Patient refused e. [facility] will be providing your [...] maintain a safe environment for our caregivers, [facility] requires anyanimals or weapons present in the home be located in a secured location. Our clinicians will call you the night before or the morning of the appointment. Their # may come up restricted but they'll leave a VM for you. In case you have any questions or concerns in the meantime, our # is [phone], option [phone] Thank you for your time and have a great day. Radha Grady documented in this encounterCleveland Clinic [facility]12-05-2022 History of Present illness Narrative* Thiago Ordaz MD - 02/02/2022 12:55 PM EST I, Thiago Ordaz MD, was notified of and approve the order for transfusion of blood products for Jai Luna. Thiago Ordaz MD Carbide Tool Die Maker, Critical Care Transport * Robert Bullock APRN.[facility] - 02/01/2022 6:45 PM EST Images from the original note were not included. Critical Care Transport Note Patient Name: Jai Luna Service Date: 02/01/2022 Referring Physician: Marie Accepting Physician: Ana Referring Facility: [facility]: ER Accepting Facility: [facility]: G54-7 SUBJECTIVE/CHIEF COMPLAINT: Hemoperitoneum REASON FOR TRANSPORT: [...] rectal cancer s/p resection. He presented to [facility] ER on 02/01/2022 for evaluation of ABD pain. Per report, has history of rectal cancer, is s/p chemotherapy and resection w/ loop ileostomy placed at [facility] 01/27/22. Today, noted sudden acute onset ABD [...] managing the patient requested transfer to the [facility] for tertiary and/or quaternary services unavailable at the referring facility. Patient condition at time of exam was: Acutely ill and critically ill. Due to the unique circumstances of the patient, it was determined that this was the closest, most appropriate facility by referring physician. The physician managing the patient requested the [facility] Critical Care Transport Team transport and treat the patient for the purpose of tertiary care, evaluation, and management of his GI condition(s). Air medical transport was requested to reduce the fmd-kr-[id number] time (21 minutes by air vs. approximately [...] RA General appearance: Severe distress, acutely ill, KAW HEENT: normocephalic, EOMI, PERRL (~3mm bilat.). Oropharynx [...] Blood Transfusion -- 1unit O-Pos. Whole Blood (#[id number]) - Jai Luna requires emergent blood transfusion as indicated by one of the following: Acute blood loss (known or suspected) with hemodynamic instability or other signs of shock with a Hgb eitherunknown or >7 where control of the hemorrhage source is not able to be obtained. - The risks, benefits, and alternatives to blood transfusion have been discussed with the patient or pharmaceutical representative who cannot consent due to clinical urgency. - Jai Luna requires O+ WHOLE BLOOD. The indication being treatment of anemia and Other: hemorrhagic shock/hemoperitoneum. - The provider (Dr. Wynn and SICU MDs) at the receiving facility was notified that the patient received O+ whole blood. - Patient verified: Yes - Procedure/Site verified: Yes - Physician Notified: Justin Ordaz MD / Angel Bullock, MAIL ROOM CLERK.SOYBEAN GROWER ASSESSMENT/PLAN: In short, Jai Lnua is a 71 year old male who [...] additional blood products. Appears to be alert (KAW so difficult to assess), protecting his airway [...] monitoring in transport. - Expedite transfer to [facility] for further SICU/surgical management. The transport was completed without significant incident or change in the patient's status. The patient was transported to the the [facility] by [employer] (Helicopter) for tertiary and/or quaternary evaluation and management of his Emergent and Critical Surgical condition(s). Upon arrival to the receiving facility, a rykt-yf-tqsi report was given to bedside nursing staff [...] Robert Bullock APRN.CNP Acute Care Nurse Practitioner [facility] Critical Care Transport Team documented in this encounterCleveland Clinic [facility]12-04-2022 History of Past illness Narrative* Problem Noted Date Resolved Date Respiratory insufficiency 02/01/20222021 Last Assessment & Plan: Assessment: extubated 02/05 Mild b/l GOYO atelectasis, satting 98-99% on RA 02/06 Requiring 2L NC to maintain O2 sat 97-99%. PLAN: -- Wean o2 as able -- Encourage OOB with PT, IS -- IV Lasix 40mg documented as of this encounter (statuses as of 02/11/2022) [facility]12-04-2022 Procedure note* Robert Bullock APRN.CNP - [...] PLACEMENT: Sterile PRIMARY PROCEDURALIST: Robert Bullock CNP ASPHALT STILL OPERATOR(S): Milagros Malik RN PROCEDURE NARRATIVE Site Marked: [...] Robert Bullock APRN.CNP Acute Care Nurse Practitioner [facility] Critical Care Transport Team documented in this encounterC[facility] Clinic [facility]12-02-2022 Miscellaneous Notes* CARE COORDINATION - Leandro Cruz RN - 01/30/2022 12:00 PM EST SN contacted Brenda on 01/30/22 for the following: ileostomy supplies Coloplast 1 piece drainable pouch #[id number] (1) box elastic barriers (1) box Chamorro Protective seals (1) box adhesive remover (1) loaf 4x4 non woven gauze documented in this encounterCleveland Clinic [facility]12-02-2022 Miscellaneous Notes* SN SOC - Britta Mantilla RN - 01/30/2022 9:21 AM EST SITUATION: [facility] SOC visit completed today. spouse also present [...] and peristomal skin condition. documented in this encounterCleveland Clinic [facility]11-30-2022 Miscellaneous Notes* Telephone Encounter - Radha [...] Season (After Oct,): No: Patient refused e. [facility] will be providing your [...] maintain a safe environment for our caregivers, [facility] requires anyanimals or weapons present in the home be located in a secured location. Our clinicians will call you the night before or the morning of the appointment. Their # may come up restricted but they'll leave a VM for you. In case you have any questions or concerns in the meantime, our # is [phone], option 5 Thank you for your time and have a great day. Radha Grady documented in this encounterCleveland Clinic [facility]11-15-2022 Miscellaneous Notes* Telephone Encounter - La Calvillo RN - 01/13/2022 10:03 AM EST Per provider request. Called patient. Spoke to Marilu and instructed that patient is to stop hisPlavix 5 days prior to surgery. understood instructions and will share with Chaka. La Calvillo RN January 13, 2022 10:05 AM documented in this encounterCleveland Clinic [facility]11-15-2022 Miscellaneous Notes* Telephone Encounter - Kush Hutchinson Coord - 01/13/2022 9:25 AM EST Plavix instructions and Outside Cardiology office note has been scanned in. * Telephone Encounter - Calista Mixon RN - 01/12/2022 3:23 PM EST Can someone call this patient's fire engine pump operator (Dr. Helen Roa at [place])? I requested optimization and Plavix instructions. He was seen last week on 01/09. Called Dr. Roa's office at [phone]. Deborah from that office states that the letter was faxed to [facility] one hour ago. documented in this encounterCleveland Clinic [facility]11-09-2022 History of Present illness Narrative* Jovanna [...] 2022 TIME: 11:49 AM documented in this encounterCleveland Clinic [facility]11-09-2022 History of Present illness Narrative* RT [...] 07, 2022 12:26 PM documented in this encounterCleveland Clinic [facility]11-09-2022 Instructions* Patient Instructions* Kristel John PA-C - 01/07/2022 8:18 AM EST PATIENT PREOPERATIVE INSTRUCTIONS Ramiro Cheung MD has scheduled you for your procedure at this surgery center: [facility] [place] Scheduling Office: [phone] --[address] [place] [address]. Please read below carefully for your personalized [...] or other anticoagulants without consulting with your fire engine pump operator or prescribing physician. - Stop Vitamin E, [...] Procedures: - YOU MUST HAVE A RESPONSIBLE RENTAL BOATS CARETAKER TAKE YOU HOME. A INVESTOR OR CHANGE MANAGEMENT SPECIALIST CANNOT BE MADE A RESPONSIBLE RENTAL BOATS CARETAKER. - We recommend that a responsible person [...] call the Wednesday before. Your surgeon s diabetes territory manager will tell you what time to call the office. - If you have not reached the departmental diabetes territory manager by 5 P.M., call [phone] after 5 P.M. the day before your surgery. Please be aware that emergency situations arise, which may delay or change your surgical time. If this happens, we will notify you as soon as possible and regret any inconvenience. If you already have an Advance Directive, please fax a copy to [phone] or email to for it to be [...] day. Kristel John PA-C documented in this encounterCleveland Clinic [facility]11-09-2022 History and physical note * Kristel [...] Coronary atherosclerosis of unspecified type of vessel, bill moore's slough or graft Coronary artery disease Diverticulosis of [...] -patient to schedule pre-op appointment with his fire engine pump operator, Dr. Helen Roa, as he has not [...] Uses exercise equipment daily at home and golAmeristream in the summer ASA Class: 3 ANESTHESIA [...] patient medical history and last F/U with fire engine pump operator in 2019. Recommends seeing cardiology prior to surgery, NT Pro BNP, and Troponin today. Cardiology appointment scheduled for tomorrow, patient refused appointment, stated he could not come back to [place] tomorrow. Patient will make an appointment with his fire engine pump operator, Dr. Helen Roa. Letter sent to fire engine pump operator for optimization and Plavix instructions. The Following [...] 2022 TIME: 8:32 AM documented in this encounterCleveland Clinic [facility] [facility] History of Present illness Narrative* I [...] done yet. 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 He completed Modified Charlene chemoradiation on July 21, completed restaging in August, and was presented to [facility]. It was recommended that he [...] PT called and expecting a call from [facility]. After initial visit at [facility] likely will get the treatment in [place] and come back for surgery if indicated. [...] closed Resting tone: NORMAL Squeeze tone: NORMAL Paperhanger present: Yes, Maricruz Rudolph Proctoscopy: The patient [...] of treatment plan: moderate documented in this encounterCleveland Clinic [facility]07-28-[facility]22 Miscellaneous Notes* Telephone Encounter - Smitha Dawson RN - 09/25/2021 9:14 AM EDT Called and spoke with patient Advised of [facility] TB recommendations ppears to have good response, but not complete response. recommend follow up in 3 months with repeat MRI and flexi sig appt scheduled today for flex sig, will request add on for MRI documented in this encounterCleveland Clinic [facility]07-20-2022 History of Present illness Narrative* RT [...] 2021 TIME: 4:10 PM documented in this encounterCleveland Clinic [facility]07-20-2022 History of Present illness Narrative* Ramiro [...] PT called and expecting a call from [facility]. After initial visit at [facility] likely will get the treatment in [place] and come back for surgery if indicated. 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 He completed in july 21. [...] final recommendations and treatment documented in this encounterCleveland Clinic [facility]07-01-2022 History of Present illness Narrative* Marisela [...] minutes Marisela Rome MD documented in this encounterCleveland Clinic [facility]05-23-2022 Nurse Note* Flavia Bernabe RN - 07/21/2021 2:14 PM EDT Written discharge instructions given and reviewed with patient. Patient verbalizes understanding. Encouraged to call with any questions or concerns. Instruction for 4 week phone call follow up appointment given per Dr. Rome. documented in this encounterCleveland Clinic [facility]05-23-2022 History of Present illness Narrative* Marisela Rome MD, MD - 07/21/2021 12:00 AM EDT JAI LUNA [id number] : 1950 07/21/2021 [facility] Department of Radiation Oncology RADIATION ONCOLOGY - [...] Signed cc: Helen Cheung documented in this encounterCleveland Clinic [facility]05-20-2022 Miscellaneous Notes* Telephone Encounter - Linda Gregory Pss - 07/18/2021 1:11 PM EDT Patient will call to schedule MRI and Dr. Cheung follow up on same day. documented in this encounterCleveland Clinic [facility]05-20-2022 History of Present illness Narrative* Alexia Rao APRN.SOYBEAN GROWER - 07/18/2021 12:31 PM EDT Chief Complaint [...] k/uL 0.52 (L) 0.47 (L) 0.38 (L) [place]% % 20.9 17.7 17.3 Abs [place] <0.87 k/uL 0.68 0.72 0.55 Eosin% % [...] visit. Alexia Rao APRN.CHELSIE documented in this encounterCleveland Clinic [facility]05-17-2022 History of Present illness Narrative* Marisela [...] planned. Marisela Rome MD documented in this encounterCleveland Clinic [facility]05-17-2022 Nurse Note* Krys Stafford RN - 07/15/2021 2:08 PM EDT Radiation Therapy - Nursing Note (OTV) PATIENT NAME: Jai Luna PATIENT July 15, 2021 [facility] FACILITY/LOCATION: [place] NURSING NOTE TYPE: pelvis Subjective Data See pain assessment Additional Data Do you want to see a Manager Security And Safety? No Status: Patient is male Stress Scale: On a scale of 0 to 10, what number best describes how much distress you have experienced in the past week?(0 being no distress and 10 being extreme distress) 4 Social work notified: Pt denied need to see social services coordinator at this time. Nursing Assessment Fatigue: increased [...] by: Krys Stafford RN documented in this encounterCleveland Clinic [facility]05-12-2022 Miscellaneous Notes* Telephone Encounter - Krys Stafford RN - 07/10/2021 1:[address] Rome reviewed results. Pt advised to pick up man Cipro a t Pharmacy. Pt states that he has not been using Zofran and has been advised to avoid using it during treatement with Cipro due to a possible drug interaction. Pt verbalized understanding and will pick up man medication today. Pt uses [facility] in [place]. * Telephone Encounter - Flavia Bernabe RN - 07/09/2021 1:49 PM EDT See prior date 07/07/21 re: dysuria Pt denied dysuria yesterday when here for OTV. today he is c/o of burning again. Denies fever of hematuria. Dr oRme notified and U/A ordered. Escorted pt to lab to obtain specimen and told him we would give results tomorrow when here. He is agreeable to plan. documented in this encounterCleveland Clinic [facility]05-10-2022 History of Present illness Narrative* Marisela Rome MD, MD - 07/08/2021 1:47 PM EDT Radiation Oncology - On Treatment Review (OTR) Note PATIENT NAME: aJi Luna PATIENT DIAGNOSIS: Clinical stage IIIA, T2N1, [...] planned. Marisela Rome MD documented in this encounterCleveland Clinic [facility]05-10-2022 Nurse Note* Flavia Bernabe RN - 07/08/2021 1:38 PM EDT Radiation Therapy - Nursing Note (OTV) PATIENT NAME: Jai Luna PATIENT July 08, 2021 [facility] FACILITY/LOCATION: [place] NURSING NOTE TYPE: RECTAL Subjective Data SEE pain assessment Additional Data Do you want to see a Manager Security And Safety? No Status: Patient is male Stress Scale: [...] by: Flavia Bernabe RN documented in this encounterCleveland Clinic [facility]05-09-2022 History of Present illness Narrative* Enid [...] Tolerated well without issue documented in this encounterCleveland Clinic [facility]05-09-2022 History of Present illness Narrative* Enid Garsia RN - 07/07/2021 10:52 AM EDT . documented in this encounterCleveland Clinic [facility]05-09-2022 Miscellaneous Notes* Telephone Encounter - Rabia [...] not signed. Thank you documented in this encounterCleveland Clinic [facility]05-06-2022 History of Present illness Narrative* Alexia [...] 4.00 k/uL 1.11 0.90 (L) 0.52 (L) [place]% % 8.1 18.4 20.9 Abs [place] <0.87 k/uL 0.38 0.67 0.68 Eosin% % [...] visit. Alexia Rao APRN.CHELSIE documented in this encounterCleveland Clinic [facility]05-03-2022 Miscellaneous Notes* Telephone Encounter - Helen [...] you. Josselyn Stanford, PharmD Clinical Pharmacist, Oncology [facility] P: , F: Pool: P [facility] ONCOL[facility]Y Pool #: [id number] documented in this encounterCleveland Clinic [facility]05-03-2022 Nurse Note* Krys Stafford RN - 07/01/2021 1:47 PM EDT Radiation Therapy - Nursing Note (OTV) PATIENT NAME: Jai Luna PATIENT July 01, 2021 [facility] FACILITY/LOCATION: [place] NURSING NOTE TYPE: RECTAL Subjective Data See pain assessment Additional Data Do you want to see a Manager Security And Safety? No Status: Patient is male Stress Scale: On a scale of 0 to 10, what number best describes how much distress you have experienced in the past week?(0 being no distress and 10 being extreme distress) 4 Social work notified: Pt denied need to see social services coordinator at this time. Nursing Assessment Fatigue: increased [...] by: Krys Stafford RN documented in this encounterCleveland Clinic [facility]05-03-2022 History of Present illness Narrative* Marisela [...] planned. Marisela Rome MD documented in this encounterCleveland Clinic [facility]05-03-2022 History of Present illness Narrative* Graciela Malin (Line Appliance Assembler) - 07/01/2021 12:11 PM EDT [facility] Refill Assessment Medication(s): Capecitabine x 2 Therapy continues to be appropriate for disease, patient response, and medical condition. Verification of therapeutic benefit and effectiveness with current therapy. Adverse events, barriers in adherence, and side effects assessed and addressed. Will proceed with refill with no changes. [facility] Visit Assessment - Hematology/Oncology: Assessment to use: Refill Non-Clinical Assessment: Patient confirmed: Yes Med/dose confirmed: Yes Supplies needed: N/A Missed doses: No Estimated days supply on hand: 3 Copay amount: 0 Payment confirmed: Yes Address confirmed: Yes Delivery method: FedEx Delivery address: [address] [place] [id number] Delivery date: 07/03/2021 Patient has questions: No Additional questions, comments, concerns: Patient stated he just started week 4 this week 06/30. Hestated to his understanding he will be doing 6 weeks but MD had not decided on it yet. Will set up remainder of what we have for week 5 and will have [facility] reach out to MD office to confirm [...] limited to bone marrow suppression, cardiotoxicity, diarrhea, fron-rvd-iqhq syndrome, hepatotoxicity Monitoring: - CBC with differential, [...] Estimated Treatment Duration: 5 weeks Graciela Malin (Line Appliance Assembler) documented in this encounterCleveland Clinic [facility]04-26-2022 Nurse Note* Flavia Bernabe RN - 06/24/2021 2:02 PM EDT Radiation Therapy - Nursing Note (OTV) PATIENT NAME: Jai Luna PATIENT June 24, 2021 [facility] FACILITY/LOCATION: [place] NURSING NOTE TYPE: RECTAL Subjective Data no complaints today Additional Data Do you want to see a Manager Security And Safety? No Status: Patient is male Stress Scale: [...] by: Flavia Bernabe RN documented in this encounterCleveland Clinic [facility]04-26-2022 History of Present illness Narrative* Marisela [...] planned. Marisela Rome MD documented in this encounterCleveland Clinic [facility]04-20-2022 History of Present illness Narrative* Helen [...] (97.5 F), weight 89.4 kg (197 lb), [id number] %. Well-appearing and in no acute distress. [...] No jaundice or rash. No petechiae. NEUROLOGIC: melt house centrifugal operator II-XII are grossly intact. No focal motor [...] Abs Lymph 1.00 - 4.00 k/uL 1.11 [place]% % 8.1 Abs [place] <0.87 k/uL 0.38 Eosin% % 3.2 Abs [...] care. Helen Lakhani DO documented in this encounterCleveland Clinic [facility]04-19-2022 Miscellaneous Notes* Addendum Note - Helen [...] protocol. Amelia Souza RN documented in this encounterCleveland Clinic [facility]04-19-2022 History of Present illness Narrative* Marisela [...] planned. Marisela Rome MD documented in this encounterCleveland Clinic [facility]04-19-2022 Nurse Note* Krys Stafford RN - 06/17/2021 1:57 PM EDT Radiation Therapy - Nursing Note (OTV) PATIENT NAME: Jai Luna PATIENT June 17, 2021 [facility] FACILITY/LOCATION: [place] NURSING NOTE TYPE: RECTAL Subjective Data see pain assessment Additional Data Do you want to see a Manager Security And Safety? No Status: Patient is male Stress Scale: [...] by: Krys Stafford RN documented in this encounterCleveland Clinic [facility]04-18-2022 History of Present illness Narrative* Enid [...] Patient tolerated procedure well. documented in this encounterCleveland Clinic [facility]04-13-2022 Miscellaneous Notes* Telephone Encounter - Shamar Stafford - 06/11/2021 1:06 PM EDT Working Cancer Piotr. Patient is active with Medicare A and B as well as [facility], and is not expected to have any financial responsibility for treatment in [facility]. There are no open foundations for Dx. Spoke with patient and advised of navigator services and insurance. Patient stated understanding and advised that they are ok at this time. documented in this encounterCleveland Clinic [facility]04-11-2022 Miscellaneous Notes* Telephone Encounter - Rabia [...] Mitomycin infusion. Please advise. documented in this encounterCleveland Clinic [facility]04-10-2022 Miscellaneous Notes* Telephone Encounter - Nica [...] need to enter his PCP's information into [employer]. Helen Lakhani DO documented in this encounterCleveland Clinic [facility]04-08-2022 History of Present illness Narrative* Helen [...] No jaundice or rash. No petechiae. NEUROLOGIC: melt house centrifugal operator II-XII are grossly intact. No focal motor [...] which included preparing to see the patient, icvb-eu-[id number] patient care, completing clinical documentation, obtaining and/or reviewing separately obtained history, performing a medically appropriate examination, counseling and educating the pat ient/family/caregiver, ordering medications, tests, or procedures, independently interpreting results (not separately reported) and communicating results to the patient/family/caregiver. Helen Lakhani DO documented in this encounterCleveland Clinic [facility]04-05-2022 Miscellaneous Notes* Telephone Encounter - Josselyn Stanford RPh - 06/03/2021 3:45 PM EDT Queued up prescription for Xeloda for 1650mg BID dosing per our conversation for 5 weeks of chemoRT. Please review and sign if this change is acceptable. Thank you. Dominick ShelbyD Clinical Pharmacist, Oncology [facility] P: , F: Pool: P [facility] ON[facility] Pool #: [id number] documented in this encounterCleveland Clinic [facility]04-04-2022 Nurse Note* Krys Stafford RN - 06/02/2021 10:11 AM EDT Radiation Therapy - Patient Education Note PATIENT NAME: Jai Luna PATIENT June 02, 2021 [facility] FACILITY/LOCATION: [place] READINESS TO LEARN Cognitive Ability: Alert and [...] need for social work, van service, and technical account executive. Was approved? unknown Signed by: Krys Stafford RN * Krys Stafford RN - 06/02/2021 9:15 AM EDT Radiation Therapy - Nursing Note (Consult) PATIENT NAME: Jai Luna PATIENT June 02, 2021 [facility] FACILITY/LOCATION: [place] Chief Complaint: consult Reason for visit: Consult. Referring physician: Internal provider Dr Huitron Subjective Data: pt reports rectal bleeding Additional Data Do you want to see a Manager Security And Safety? No Are you interested in information about fertility? No Status: Patient is male Stress Scale: On a scale of 0 to 10, what number best describes how much distress you have experienced in the past week?(0 being no distress and 10 being extreme distress) 0 Social work notified: Pt denied need to see social services coordinator at this time. Radiation therapy teaching initiated. [facility] external beam radiation therapy handout given. Departmentphone numbers given & patient encouraged to verbalize questions. SIGNED by: Krys Stafford RN documented in this encounterCleveland Clinic [facility]04-04-2022 History of Present illness Narrative* Enid Natarajan (Technology Consultant) - 06/02/2021 9:17 AM EDT [facility] received prescription(s) for Capecitbine from Dr. Bowens's office. Benefits investigation was conducted, indicating that a prior authorization is not required at this time per patient's plan with Medicare B. Prescriptions will now be processed through [facility] for determination of next steps. Endi Natarajan [facility] Oncology P: [phone] F: [phone] [email or web address] documented in this encounterCleveland Clinic [facility]04-04-2022 History of Present illness Narrative* Marisela [...] Coronary atherosclerosis of unspecified type of vessel, bill moore's slough or graft Coronary artery disease Diverticulosis of [...] PROSTATE SURGERY HX [facility]ISMUS [facility]CJ [facility]abismus surgery TONSILLECTOMY HX TONSILLECTOMY PRIMARY/SECONDARY <AGE [...] rectum. His case was discussed at the [facility] main campus tumor board and chemoradiation treatment per anal cancer protocol was recommended. I agree. I explained the rationale, benefits, alternative management options and potential complications of radiation treatment to the patient and he understands and agrees to proceed. It was explained and understood that other personnel such as radiation therapists, polisher balance screwhead, and physicists will participate in planning and [...] Marisela Rome MD cc: Susu Talia Huitron [id number] [address] [facility] [id number] Helen Lakhani [facility] Ramiro Cheung documented in this encounterCleveland Clinic [facility]04-04-2022 History of Present illness Narrative* Marisela Rome MD, MD - 06/02/2021 12:00 AM EDT JAI LUNA [id number] 06/02/2021 [facility] Department of Radiation Oncology [facility] RADIATION ONCOLOGY SIMULATION NOTE DATE OF SIMULATION: [...] Rome M.D./ 29:17 AM documented in this encounterCleveland Clinic [facility]04-04-2022 History of Present illness Narrative* Marisela Rome MD, MD - 06/02/2021 12:00 AM EDT JAI LUNA [id number] 06/02/2021 [facility] Department of Radiation Oncology Treatment Planning Note [...] Rome M.D. 21:47 PM documented in this encounterCleveland Clinic [facility]04-01-2022 History of Present illness Narrative* Enid Natarajan (Technology Consultant) - 05/30/2021 3:12 PM EDT [facility] received prescription(s) for Capecitabine from Dr. Bowens's office. Benefits investigation was conducted, indicating that a prior authorization is not required at this time per patient's plan with Medicare. Prescriptions will now be processed through [facility] for determination of next steps. Enid Natarajan [facility] Oncology P: [phone] F: [phone] documented in this encounterCleveland Clinic [facility]03-31-2022 History of Present illness Narrative* Susu [...] Coronary atherosclerosis of unspecified type of vessel, bill moore's slough or graft Coronary artery disease Diverticulosis of [...] PROSTATE SURGERY HX STRABISMUS RECESSION[facility]CJ [facility] Strabismus surgery TONSILLECTOMY HX TONSILLECTOMY PRIMARY/SECONDARY <AGE 12 Tonsillectomy VASCULAR SURGERY PROCEDURE FAMILY HISTORY Problem Relation Age of Onset Emphysema Mother Heart Father Social History Tobacco Use Smoking status: Former Smoker Packs/day: 1.00 Years: 30.00 Pack years: 30.00 Types: Cigarettes Quit date: 01/29/2000 Years since quittin.3 Smokeless tobacco: Never Used Substance Use Topics Alcohol use: Yes Comment: rarely Drug use: No Residence: [place], [place] - [address] 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 However, he lives in [place] and would like to receive his cares [...] responsible provider. cc: I Dutch Cheung [address] [facility] [id number] Caty Bowens [facility] Marisela Rome [facility] documented in this encounterCleveland Clinic [facility]03-31-2022 Nurse Note* Bertha Orosco MA - 05/29/2021 10:06 AM EDT Additional intake questions: Has the patient had fever, nausea, vomiting, diarrhea, constipation, fatigue for > 1 week? Yes, constipation (day of last BM TODAY) Does the patient have a decreased appetite? No Does patient want to see a Manager Security And Safety? Unable to assess due to N/A (yes [...] Work or Resource Center documented in this encounterCleveland Clinic [facility]03-31-2022 History of Present illness Narrative* Caty Bowens MD - 05/29/2021 10:[address] [facility] ONCOLOGY CLINICAL NOTE PATIENT NAME: Jai Luna DATE OF : 1950 CLINIC NO.: [id number] DATE OF SERVICE: May 29, 2021 REFERRING PHYSICIAN: Ramiro Cheung [address] [facility] [id number] PRIMARY CARE PHYSICIAN: No Pcp CONSULTATION REGARDING: [...] no history of cancer SH: Lives in [place], [place]. . 1 daughter. Former smoker (30 [...] to get treatment closer to home at [place]. I will make the referral today to regional oncology at [place]. We discussed treatment with Charlene protocol with [...] Huitron - consult to regional oncology at [facility] - labs: DPYD testing done today 2. Colorectal cancer screening for family members - recommend starting at age 40 Thank you for the courtesy of this consultation. I spent 60 minutes on the date of this encounter providing and coordinating patient care including >50% of that time spent providing cwvv-zi-xihl patient care. Caty Bowens MD GI Medical Oncologist [facility] [place] cc: I Dutch Cheung [address] [facility] [id number] documented in this encounterCleveland Clinic [facility]05-18-2021 History of Present illness Narrative* Mr. 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, unspecified site documented in this encounter [facility]* Diagnosis Prostate cancer (HCC)- Primary Malignant neoplasm of prostate 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 documented in this encounter [facility]* Diagnosis Rectal malignant neoplasm (HCC)- Primary Malignant neoplasm of rectum 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 documented in this encounter [facility]* Diagnosis Rectal malignant neoplasm (HCC)- Primary Malignant neoplasm of rectum documented in this encounter [facility]* Diagnosis 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, unspecified site documented in this encounter [facility] noteNo assessment information availableWCleveland Clinic [facility] Work Phone: Evaluation note* Diagnosis 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, unspecified site documented in this encounter [facility]* Diagnosis 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, unspecified site documented in this encounter [facility]* Diagnosis Rectal malignant neoplasm (HCC)- Primary Malignant neoplasm of rectum Dysuria documented in this encounter [facility]* Diagnosis Rectal malignant neoplasm (HCC)- Primary Malignant neoplasm of rectum documented in this encounter [facility]* Diagnosis 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, unspecified site [facility] Diagnosis 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, unspecified site [facility] Diagnosis 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, unspecified site [facility] Diagnosis 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, unspecified site [facility] Diagnosis Rectal malignant neoplasm (HCC)- Primary Malignant neoplasm of rectum Rectal malignant neoplasm (HCC)- Primary Malignant neoplasm of rectum [facility] Diagnosis 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, unspecified site [facility] Diagnosis Rectal malignant neoplasm (HCC)- Primary Malignant neoplasm of rectum [facility] Diagnosis 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, unspecified site [facility] Diagnosis Dysuria- Primary [facility] Diagnosis 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, unspecified site [facility] Diagnosis 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, unspecified site [facility] Diagnosis Radiotherapy follow-up- Primary Radiotherapy follow-up examination 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, unspecified site [facility] Diagnosis Rectal cancer (HCC)- Primary Malignant neoplasm of rectum [facility] Diagnosis 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, unspecified site [facility]* Diagnosis Squamous cell carcinoma of rectum [...] neoplasm of rectum [facility] Diagnosis Pre-operative clearance- Primary Preoperative examination, unspecified [facility]* Diagnosis Pre-op evaluation- Primary Preoperative examination, unspecified 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 moore[place] slough heart without angina pectoris Bilateral carotid artery stenosis Occlusion and stenosis of carotid artery without mention of cerebral infarction Primary hypertension Unspecified essential hypertension Shortness of breath Shortness of breath 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 Essential hypertension Unspecified essential hypertension 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 Dyslipidemia Other and unspecified hyperlipidemia [facility] Diagnosis Rectal cancer (HCC) Malignant neoplasm of rectum Malignant neoplasm of rectum (HCC) Malignant neoplasm of rectum [facility] Diagnosis Onset Date Resolution Status Dilated aortic root acute 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 Bilateral carotid artery stenosis chronic Dyslipidemia chronic Essential hypertension chron ic Peripheral vascular disease chronic [facility] Work Phone: Evaluation note* Diagnosis Rectal cancer (HCC)- Primary Malignant neoplasm of rectum [facility] Diagnosis Anemia, unspecified type- Primary Pulmonary embolism and infarction (HCC) Other pulmonary embolism and infarction Hypokalemia Hypopotassemia 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) Ileostomy status Generalized weakness Other malaise and fatigue [facility] Diagnosis History of venous thromboembolism- Primary Personal history of venous thrombosis and embolism Presence of IVC filter Other postprocedural status Acute blood loss anemia Acute posthemorrhagic anemia Rectal cancer (HCC) Malignant neoplasm of rectum Compression neuropathy Mononeuritis of unspecified site [facility] Diagnosis Postoperative state- Primary Other postprocedural status [facility] Diagnosis 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)- Primary Attention to ileostomy [facility] Diagnosis Rectal malignant neoplasm (HCC)- Primary [...] Attention to ileostomy [facility] Diagnosis Encounter for therapeutic drug monitoring- Primary 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) Attention to ileostomy [facility] Diagnosis Serum potassium elevated- Primary Hyperpotassemia 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) Attention to ileostomy [facility] Diagnosis Pre-op evaluation- Primary Preoperative examination, unspecified 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, unspecified whether bill moore's slough or transplanted heart (HCC) Pulmonary embolism and infarction (HCC) Other pulmonary embolism and infarction Bilateral carotid artery stenosis Occlusion and stenosis of carotid artery without mention of cerebral infarction 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)- Primary Attention to ileostomy 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) Attention to ileostomy [facility] Diagnosis 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)- Primary Attention to ileostomy 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) Attention to ileostomy [facility]* Diagnosis History of rectal cancer- Primary Personal history of malignant neoplasm of rectum, rectosigmoid junction, and anus 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) Attention to ileostomy 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) Attention to ileostomy [facility]* Diagnosis History of pulmonary embolism- Primary [...] Attention to ileostomy [facility] Diagnosis 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) Attention to ileostomy Preoperative examination Preoperative examination, unspecified 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) Attention to ileostomy [facility] Diagnosis Iron deficiency anemia, unspecified [...] Attention to ileostomy [facility] Diagnosis Acute deep vein thrombosis (DVT) of proximal vein of left lower extremity (HCC)- Primary [facility]* Diagnosis Acute deep vein thrombosis (DVT) of proximal vein of left lower extremity (HCC)- Primary [facility] Diagnosis Acute deep vein thrombosis (DVT) of proximal vein of left lower extremity (HCC)- Primary [facility]* Diagnosis Acute deep vein thrombosis (DVT) of proximal vein of left lower extremity (HCC)- Primary documented [facility] this [facility]* Diagnosis Deep vein thrombosis (DVT) of both lower extremities, unspecified chronicity, unspecified vein (HCC)- Primary 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) Chronic venous embolism and thrombosis of deep vessels of distal lower extremity documented [facility] this encounter [facility]* Diagnosis Deep vein thrombosis (DVT) of both lower extremities, unspecified chronicity, unspecified vein (HCC)- Primary Localized edema Edema [facility] Diagnosis 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)- Primary S/P IVC filter Other postprocedural status Current use of director long term care anticoagulation Long-term (current) use of anticoagulants Bruit of right carotid artery Atherosclerosis of aorta (HCC) Atherosclerosis of aorta documented in this encounter [facility]* Diagnosis Acute deep vein thrombosis (DVT) of proximal vein of left lower extremity (HCC)- Primary documented in this encounter [facility] note* Diagnosis Acute deep vein thrombosis (DVT) of proximal vein of left lower extremity (HCC)- Primary [facility]* Diagnosis Acoustic neuroma ([facility]/HCC) Benign neoplasm of cranial nerves documented in this encounter [facility] Work Phone: Evaluation note* Diagnosis Acute deep vein thrombosis (DVT) of proximal vein of left lower extremity (HCC)- Primary [facility]* Diagnosis Left arm pain- Primary Pain in limb documented in this encounter [facility] note* Diagnosis Ingrown nail of great toe- Primary documented [facility] this encounter [facility]* Diagnosis Pain in left arm- Primary documented in this encounter [facility]* Diagnosis Onset Date Resolution Status Dilated aortic root acute 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 Bilateral carotid artery stenosis chronic Dyslipidemia chronic Essential hypertension chron ic Peripheral vascular disease chronic 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 Claudication of left lower extremity chronic 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 [facility] Work Phone: Evaluation note* Diagnosis Pain in left arm documented in this encounter [facility] note* Diagnosis Primary osteoarthritis of left shoulder- Primary Primary localized osteoarthrosis, shoulder region Calcific tendinitis of left shoulder Calcifying tendinitis of shoulder documented [facility] this encounter [facility]* Diagnosis Rectal bleeding- Primary Hemorrhage of rectum and anus History of rectal cancer Colorectal anastomotic stricture documented in this encounter [facility] note* Diagnosis History of rectal cancer- Primary Personal history of malignant neoplasm of rectum, rectosigmoid junction, and anus documented in this encounter [facility] note* Diagnosis History of rectal cancer- Primary Personal history of malignant neoplasm of rectum, rectosigmoid junction, and anus documented in this encounter [facility] note* Diagnosis History of rectal cancer Personal history of malignant neoplasm of rectum, rectosigmoid junction, and anus History of rectal cancer- Primary Personal history of malignant neoplasm of rectum, rectosigmoid junction, and anus History of rectal cancer Personal history of malignant neoplasm of rectum, rectosigmoid junction, and anus documented in this encounter [facility]* Diagnosis Preoperative examination- Primary Preoperative examination, unspecified History of rectal cancer Personal history of malignant neoplasm of rectum, rectosigmoid junction, and anus 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 Completed by Dr. Reynolds at [facility] on Plavix and ASA. * Assessment & [...] 2/2 acoustic neuroma. 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 Bilateral carotid artery stenosis Occlusion and stenosis of carotid artery without mention of cerebral infarction Status post coronary artery bypass graft Postsurgical aortocoronary bypass status Essential hypertension Unspecified essential hypertension Pre-operative examination Preoperative examination, unspecified Pre-op evaluation- Primary Preoperative examination, unspecified 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 heart without angina pectoris Bilateral carotid artery [...] bypass graft with angina pectoris, unspecified whether [place] moore[place]ough or transplanted heart (HCC) Pulmonary embolism and [...] bypass graft with angina pectoris, unspecified whether [place]ough or transplanted heart (HCC) History of pulmonary [...] Primary Ileostomy status [facility] Diagnosis 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 Bilateral carotid artery stenosis Occlusion and stenosis of carotid artery without mention of cerebral infarction Status post coronary artery bypass graft Postsurgical aortocoronary bypass status Essential hypertension Unspecified essential hypertension Pre-operative examination Preoperative examination, unspecified Pre-op evaluation- Primary Preoperative examination, unspecified 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 heart without angina pectoris Bilateral carotid artery [...] bypass graft with angina pectoris, unspecified whether [place] or transplanted heart (HCC) Pulmonary embolism and [...] bypass graft with angina pectoris, unspecified whether [place]ough or transplanted heart (HCC) History of pulmonary [...] joint, shoulder region [facility] Diagnosis 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 Bilateral carotid artery stenosis Occlusion and stenosis of carotid artery without mention of cerebral infarction Status post coronary artery bypass graft Postsurgical aortocoronary bypass status Essential hypertension Unspecified essential hypertension Pre-operative examination Preoperative examination, unspecified Pre-op evaluation- Primary Preoperative examination, unspecified 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 heart without angina pectoris Bilateral carotid artery [...] bypass graft with angina pectoris, unspecified whether [place]ough or transplanted heart (HCC) Pulmonary embolism and [...] bypass graft with angina pectoris, unspecified whether [place]ough or transplanted heart (HCC) History of pulmonary [...] thrombosis and embolism [facility] Diagnosis Acoustic neuroma (Multi) Benign neoplasm of cranial nerves documented in this encounter [facility] Work Phone: Evaluation note* Diagnosis 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 Bilateral carotid artery stenosis Occlusion and stenosis of carotid artery without mention of cerebral infarction Status post coronary artery bypass graft Postsurgical aortocoronary bypass status Essential hypertension Unspecified essential hypertension Pre-operative examination Preoperative examination, unspecified Pre-op evaluation- Primary Preoperative examination, unspecified 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 heart without angina pectoris Bilateral carotid artery [...] bypass graft with angina pectoris, unspecified whether [place] or transplanted heart Pulmonary embolism and infarction [...] bypass graft with angina pectoris, unspecified whether [place] or transplanted heart History of pulmonary embolism [...] of ileostomy (HCC) [facility] Diagnosis 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 Bilateral carotid artery stenosis Occlusion and stenosis of carotid artery without mention of cerebral infarction Status post coronary artery bypass graft Postsurgical aortocoronary bypass status Essential hypertension Unspecified essential hypertension Pre-operative examination Preoperative examination, unspecified Pre-op evaluation- Primary Preoperative examination, unspecified 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 heart without angina pectoris Bilateral carotid artery [...] bypass graft with angina pectoris, unspecified whether [place] or transplanted heart Pulmonary embolism and infarction [...] bypass graft with angina pectoris, unspecified whether [place] or transplanted heart History of pulmonary embolism [...] anus, unspecified site [facility] Diagnosis 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 Bilateral carotid artery stenosis Occlusion and stenosis of carotid artery without mention of cerebral infarction Status post coronary artery bypass graft Postsurgical aortocoronary bypass status Essential hypertension Unspecified essential hypertension Pre-operative examination Preoperative examination, unspecified Pre-op evaluation- Primary Preoperative examination, unspecified 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 heart without angina pectoris Bilateral carotid artery [...] bypass graft with angina pectoris, unspecified whether [place] or transplanted heart Pulmonary embolism and infarction [...] bypass graft with angina pectoris, unspecified whether [place] or transplanted heart History of pulmonary embolism [...] Attention to ileostomy [facility] Diagnosis 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 Bilateral carotid artery stenosis Occlusion and stenosis of carotid artery without mention of cerebral infarction Status post coronary artery bypass graft Postsurgical aortocoronary bypass status Essential hypertension Unspecified essential hypertension Pre-operative examination Preoperative examination, unspecified Pre-op evaluation- Primary Preoperative examination, unspecified 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 heart without angina pectoris Bilateral carotid artery [...] bypass graft with angina pectoris, unspecified whether [place] or transplanted heart Pulmonary embolism and infarction [...] bypass graft with angina pectoris, unspecified whether [place] or transplanted heart History of pulmonary embolism [...] Attention to ileostomy [facility] Diagnosis 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 Bilateral carotid artery stenosis Occlusion and stenosis of carotid artery without mention of cerebral infarction Status post coronary artery bypass graft Postsurgical aortocoronary bypass status Essential hypertension Unspecified essential hypertension Pre-operative examination Preoperative examination, unspecified Pre-op evaluation- Primary Preoperative examination, unspecified 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 heart without angina pectoris Bilateral carotid artery [...] bypass graft with angina pectoris, unspecified whether [place] or transplanted heart Pulmonary embolism and infarction [...] bypass graft with angina pectoris, unspecified whether [place] or transplanted heart History of pulmonary embolism [...] of ileostomy (HCC) [facility]* Mr. Luna is [...] has not had any changes in hearing. [id number] [id number] Work Phone: Patient's home Plan of care note* Visit Details Visit Type -SN SOC Discipline -[facility] Problems Problem Description Start Date Status Goals [...] and ostomy precautions. 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 [facility] Visit [...] and written instructions. [facility] Visit [...] home exercise program. documented in this encounter [facility] home Plan of care note* Visit Details Visit Type -SN ROUTINE Discipline -[facility] Problems Problem Description Start Date Status Goals [...] scheduled/docume nted intervention 1 goal intervention scheduled/documen deynaira in this visit SN Gastrointestinal Disciplines: 02/25/2022 [...] s/s PE exacerbation.. documented in this encounter [facility]'s home Plan of care note* Visit Details Visit Type -SPORTS EDITOR ROUTINE Discipline -Physical Therapy Problems Problem Description [...] community ambulation, in order to return to [facility] , to be achieved by 04/25/22. [...] home exercise program. [facility] Visit Details Visit Type -SN ROUTINE Discipline -[facility] Problems Problem Description Start Date Status Goals [...] & symptom reporting. [facility]* Visit Details Visit Type -SPORTS EDITOR ROUTINE Discipline -Physical Therapy Problems Problem Description [...] community ambulation, in order to return to [facility] , to be achieved by 04/25/22. [...] Visit Details Visit Type -SN ROUTINE Discipline -[facility] Problems Problem Description Start Date Status Goals [...] exacerbation, self monitoring. documented in this encounter [facility]'s home Plan of care note* Visit Details Visit Type -SN ROUTINE Discipline -[facility] Problems Problem Description Start Date Status Goals [...] instructed on PE. [facility] Visit Details Visit Type -SPORTS EDITOR ROUTINE Discipline -Physical Therapy Problems Problem Description [...] home exercise program. [facility] Visit Details Visit Type -SN ROUTINE Discipline -[facility] Problems Problem Description Start Date Status Goals [...] s/s PE exacerbation. documented in this encounter [facility]'s home Plan of care note* Visit Details Visit Type -SPORTS EDITOR ROUTINE Discipline -Physical Therapy Problems Problem Description [...] home exercise program. [facility] Visit Details Visit Type -SN ROUTINE Discipline -[facility] Problems Problem Description Start Date Status Goals [...] s/s DVT exacerbation.. [facility] Visit Details Visit Type -SPORTS EDITOR ROUTINE Discipline -Physical Therapy Problems Problem Description [...] community ambulation, in order to return to [facility] , to be achieved by 04/25/22. [...] home exercise program. [facility] Visit Details Visit Type -SPORTS EDITOR ROUTINE Discipline -Physical Therapy Problems Problem Description [...] community ambulation, in order to return to [facility] , to be achieved by 04/25/22. [...] home exercise program. [facility] Visit Details Visit Type -SN ROUTINE Discipline -[facility] Problems Problem Description Start Date Status Goals [...] s/s PE exacerbation. [facility] Visit Details Visit Type -SN ROUTINE Discipline -[facility] Problems Problem Description Start Date Status Goals [...] s/s PE exacerbation. documented in this encounter [facility]'s home Plan of care note* Visit Details Visit Type -SN ROUTINE Discipline -[facility] Problems Problem Description Start Date Status Goals [...] & symptom reporting. [facility] Visit Details Visit Type -SPORTS EDITOR ROUTINE Discipline -Physical Therapy Problems Problem Description [...] community ambulation, in order to return to [facility] , to be achieved by 04/25/22. [...] home exercise program. [facility] Visit Details Visit Type -SPORTS EDITOR ROUTINE Discipline -Physical Therapy Problems Problem Description [...] community ambulation, in order to return to [facility] , to be achieved by 04/25/22. [...] home exercise program. [facility] Visit Details Visit Type -SPORTS EDITOR ROUTINE Discipline -Physical Therapy Problems Problem Description [...] community ambulation, in order to return to [facility] , to be achieved by 04/25/22. [...] home exercise program. [facility] Visit [...] community ambulation, in order to return to [facility] , to be achieved by 04/25/22. [...] include: verbal cues. [facility] Visit Details Visit Type -SN AGENCY DC W V ISIT Discipline -[facility] Problems Problem Description Start Date Status Goals [...] and Cardiac Diet. [facility] Author Carlos Trujillo [facility] Note Date/Time November 29, 2024 11 :17am [facility] [address] [place] [address] OFFICE VISIT Date of Service: 11/29/24 MR#: [id number] Acct: [id number] Name: JAI LUNA Rep #: [id number] : [id number] Provider: ALTAGRACIA Trujillo Age/Sex: 74/M Location: [facility] Status: Signed HPI HPI History of Present [...] abdominal area, he was lift flighted to [facility]. He then had complications for PE/DVTs. He [...] from a previous echo done at the [facility] 02/13/2022. The last catheterization November 2016 the [...] procedures. The stenting procedures were done at [facility] by Dr. Joshua Lloyd. He denies [...] (%) 95 Intake Visit Reasons: Clearance visit Medical Device Assembler Required: No Is patient in pain?: No [...] lumbar surgery scheduled for december dr. siddiqui [facility] Medical History (Updated 11/29/24 @ 11:05 by Carlos Trujillo SECONDARY TEACHER, SECONDARY TEACHER-C) Obesity (BMI 30.0-34.9) MRSA (methicillin resistant staph [...] (~12/22/16) Essential hypertension Atherosclerotic heart disease of [place] coronary artery without angina pectoris Hypoacusis Dyslipidemia [...] and Plan (1) Atherosclerotic heart disease of [place] coronary artery without angina pectoris: Status: Chronic Qualifiers: [place] vs. transplanted heart: [place] heart Qualified Code(s): I25.10 -Atherosclerotic heart disease of [place] coronary artery without angina pectoris Plan: History [...] Today I25.10 - Atherosclerotic heart disease of [place] coronary artery without angina pectoris, Z95.5 - [...] Code Off vis,est,level 4 Diagnoses Atherosclerosis of [place] coronary artery of [place] heart without angina pectoris I25.10 [place] vs. transplanted heart: [place] heart Dyslipidemia E78.5 Peripheral vascular disease I73.9 Essential hypertension I10 Preoperative cardiovascular examination Z01.810 Coding Level of Care Code Off vis,est,level 4 Diagnoses Atherosclerosis of [place] coronary artery of [place] heart without angina pectoris I25.10 [place] vs. transplanted heart: [place] heart Dyslipidemia E78.5 Peripheral vascular disease I73.9 Essential hypertension I10 Preoperative cardiovascular examination Z01.810 Clinical Quality Measures Falls Risk Screening/Assistive Devices Have you fallen in the past year?: No 11/29/24 1125 <Electronically signed by Carlos FRIAS> Date _ Carlos FRIAS Cosigner Signature: Date (if applicable) CC: Dr. Katy Faust MD ~ [facility] [place] Work Phone: Reason for referral (narrative)* Outpatient Procedure (Routine) - Authorized Specialty Diagnoses / [facility] Diagnoses Pre-operative clearance Procedures ECG COMPLETE ECG ROUTINE ECG W/LEAST 12 LDS W/I&R Eric Hernandez MD [address] [place] [address] [place] [address] Referral ID Status Reason Start Date Expiration Date Visits Requested Visits Authorized [id number] Authorized Auto-Generat ed Referral 01/07/2022 01/07/2023 1 1 [facility] for referral (narrative)* Outpatient Procedure (Routine) - Authorized Specialty Diagnoses / Procedures [facility] To Contact [facility] Diagnoses Personal history of DVT (deep vein thrombosis) Anticoagulation management encounter History of pulmonary embolism Procedures US LEG VEIN DVT URBANO VAS LAB DUP-SCAN XTR VEINS COMPLETE BILATERAL STUDY Terry Cifuentes MD [address] [place] [address] [place] [address] Referral ID Status Reason Start Date Expiration Date Visits Requested Visits Authorized [id number] Authorized Auto-Generat ed Referral 05/20/2022 05/20/2023 1 1 [facility] for referral (narrative)* Diagnostic Procedure Only (Routine) - Closed Specialty Diagnoses / Procedures 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) Preoperative examination Procedures XR COLON SINGLE CONTRAST RADIOLOGIC EXAM COLON SINGLE CONTRAST STUDY Ramiro Cheung MD [address] [place] [address] Xr Imaging Referral ID Status Reason Start Date Expiration Date V isits Requested Visits Authorized [id number] Closed Auto-Generate d Referral 04/01/2022 05/01/2023 1 1 [facility] for referral (narrative)* Diagnostic Procedure Only (Routine) - Pending Review Specialty Diagnoses / Procedures Referred By Contac t Referred To Contact US IMAGING Diagnoses Deep vein thrombosis (DVT) of both lower extremities, unspecified chronicity, unspecified vein (HCC) 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) Procedures US DVT LOWER BILATERAL DUP-SCAN XTR VEINS COMPLETE BILATERAL STUDY Yessica Tinoco APRN.CNP [address] [place] [address] Us Imaging Referral ID Status Reason Start Date Expiration Date Visits Requested Visits Authorized [id number] Pending Review Auto-Generat ed Referral 10/14/2022 10/30/2023 1 1 [facility] for referral (narrative)* Outpatient Procedure (Routine) - Authorized Specialty Diagnoses / Procedures Referred By Contac t Referred To Contact [facility] Diagnoses Deep vein thrombosis (DVT) of both lower extremities, unspecified chronicity, unspecified vein (HCC) Localized edema Procedures US LEG VEIN DVT UNL VAS LAB DUP-SCAN XTR VEINS UNILATERAL/LIMITED STUDY Yessica Tinoco APRN.CNP [address] [place] [address] [place] [address] Referral ID Status Reason Start Date Expiration Date Visits Requested Visits Authorized [id number] Authorized Auto-Generat ed Referral 10/15/2022 10/01/2023 1 1 [facility] for referral (narrative)* Outpatient Procedure (Routine) - Authorized Specialty Diagnoses / Procedures Referred By Contac t Referred To Contact [facility] Diagnoses Bruit of right carotid artery Procedures US CAROTID ARTERIES URBANO VAS LAB DUPLEX SCAN EXTRACRANIAL ART COMPL BI STUDY Terry Cifuentes MD [address] [place] [address] [facility] [address] [address] Referral ID Status Reason Start Date Expiration Date Visits Requested Visits Authorized [id number] Authorized Auto-Generat ed Referral 11/03/2022 11/03/2023 1 1 * Outpatient Procedure (Routine) - Pending Review Specialty Diagnoses / Procedures Referred By Contac t Referred To Contact [facility] Diagnoses 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) Procedures US LEG VEIN DVT UNL VAS LAB DUP-SCAN XTR VEINS UNILATERAL/LIMITED STUDY Terry Cifuentes MD [address] [place] [address] [address] Referral ID Status Reason Start Date Expiration Date Visits Requested Visits Authorized [id number] Pending Review Auto-Generat ed Referral 11/03/2022 11/03/2023 1 1 [facility] for referral (narrative)* Diagnostic Procedure Only (Routine) - Pending Review Specialty Diagnoses / Procedures Referred By Contac t Referred To Contact XR IMAGING Diagnoses Pain in left arm Procedures XR SHOULDER GENERAL 3V OR MORE AP/TRUE AP/OTHER LEFT RADEX SHOULDER COMPLETE MINIMUM 2 VIEWS Michael Christian MD [address] [place] [address] Xr Imaging [facility] Referral ID Status Reason Start Date Expiration Date Visits Requested Visits Authorized [id number] Pending Review Auto-Generat ed Referral 06/11/2023 07/10/2024 1 1 [facility] for referral (narrative)* Consultation (Routine) - Pending Review Specialty Diagnoses / Procedures Referred By Contac t Referred To Contact Colon and Rectal Surgery Diagnoses Rectal bleeding History of rectal cancer Colorectal anastomotic stricture Procedures NV OFFICE/OUTPATIENT NEW HIGH MDM 60 MINUTES Sabrina Muñiz MD [address] [facility] [address] [place] [address] Ana Cheung [address] [place] [address] Referral ID Status Reason Start Date Expiration Date Visits Requested Visits Authorized [id number] Pending Review Specialty Services Required 07/15/2023 07/14/2024 1 1 [facility] for referral (narrative)No reason for referral information [facility] Work Phone: Reason for visit Narrative* Diagnostic Procedure Only (Routine) - Closed Specialty Diagnoses / Procedures Referred By Contac t Referred To Contact XR IMAGING Diagnoses Pain in left arm Procedures XR SHOULDER GENERAL 3V OR MORE AP/TRUE AP/OTHER LEFT RADEX SHOULDER COMPLETE MINIMUM 2 VIEWS Michael Christian MD [address] [place] [address] Xr Imaging [place] [address] Referral ID Status Reason Start Date Expiration Date V isits Requested Visits Authorized [id number] Closed Auto-Generate d Referral 06/11/2023 07/10/2024 1 1 [facility] for visit Narrative* Imaging (Routine) - Authorized Specialty Diagnoses / Procedures Referred By Contac t Referred To Contact Radiology Diagnoses Acoustic neuroma (Multi) Procedures MR IAC w [place] [address] [address] Department of Otolaryngology, [place] [address] Phone: tel: fax: Referral ID Status Reason Start Date Expiration Date Visits Requested Visits Authorized [id number] Authorized Perform Procedure 04/01/2023 03/31/2024 1 1 [facility] Work Phone: Chief Complaint NPV6-month f/u visit [...] FoundDocuments on File Type Date Recorded Patient Well Puller Head Expl anation Advance Directive(s) 02/04/2022 10:42 AM [...] Documents on File Type Date Recorded Patient Well Puller Head Expl anation Advance Directive(s) 04/29/2021 1:55 PM Advance Directive(s) 03/20/2021 8:14 AM Advance Directive(s) 03/12/2021 12:52 PM Documents on File Type Date Recorded Patient Well Puller Head Expl anation Advance Directive(s) 04/29/2021 1:55 PM Advance Directive(s) 03/20/2021 8:14 AM Advance Directive(s) 03/12/2021 12:52 PM Advance Directive Response Recorded Date/ Time Advance Directives No December 11:52pm Living Will Yes April 07 7:04pm Power of Rcp Yes April 07, 2019 7:04pm Advance Directive Response Recorded Date/ Time Advance Directives No December 10:52pm Living Will Yes April 07 6:04pm Power of Rcp Yes April 07, 2019 6:04pm Latest Code Status on File Code Status Date Activated Date Inactivated Comments Full Code 01/30/2022 7:09 PM Advance Directive Response Recorded Date/ Time Name of Medical Power of Rcp Marilu February 01, 2022 2:25pm Advance Directives No December 10:52pm Living Will Yes February 01 2:25pm Power of Rcp Yes February 01, 2022 2:25pm Latest Code Status on File Code Status Date Activated Date Inactivated Comments Full Code 01/30/2022 7:09 PM 02/01/2022 5:30 PM Documents on File Type Date Recorded Patient Well Puller Head Expl anation Advance Directive(s) 02/04/2022 10:42 AM Latest Code Status on File Code Status Date Activated Date Inactivated Comments Full Code 02/04/2022 2:47 PM Full Code Order Discussed With: Patient Full Code 01/30/2022 7:09 PM 02/01/2022 5:30 PM Advance Directive Response Recorded Date/ Time Name of Medical Power of Rcp Marilu February 01, 2022 2:25pm Name of Medical Power of Rcp February 27, 2022 4:07am Advance Directives No December 10:52pm Living Will Yes February 27, 2 022 4:07am Power of Rcp Yes February 27, 2022 4:07am Advance Directive Response Recorded Date/ Time Name of Medical Power of Rcp Marilu February 01, 2022 2:25pm Name of Medical Power of Rcp February 27, 2022 4:07am Name of Medical Power of Rcp Marilu Luna March 01, 2022 8:23pm Advance Directives No December 10:52pm Living Will Yes March 01 8:23pm Power of Rcp Yes March 01, 2 023 8:23pm Latest [...] Date Activated Date Inactivated Comments FULL CODE LALISON 03/02/2022 5:34 PM 03/03/2022 4:01 PM Question [...] July 17, 2022 6 :39pm Power of Rcp No July 17, 2022 6:39pm Advance Directive Response Recorded Date/ Time Advance Directives No December 11:52pm Living Will No June 11, 2023 6:49pm Power of Rcp No June 10 6:49pm Date Activated Date [...] 072023 8:08am Name of Medical Power of Rcp Marilu July 08, 2023 8:08am Advance Directives Yes July 08, 2023 8:08am Living Will Yes July 08, 2023 8: 08am Power of Rcp Yes July 08, 2023 8:08am Advance Directive Response Recorded Date/ Time Living Will No April 25 11:35am Do you have a Healthcare Power of Rcp? No April 25, 2024 11:35am Advance Directives Yes July 27 2:08pm Advance Directive Response Recorded Date/ Time Advance Directives Yes July 27 2:08pm Reason for Referral Specialty Diagnoses / Procedures Referred By Contac t Referred To Contact Oncology Diagnoses Rectal malignant neoplasm (HCC) Procedures CONSULT TO ONCOLOGY OFFICE/OUTPATIENT [facility] 60-74 MINUTES Caty Bowens MD [address] [place] [id number] Referral ID Status Reason Start Date Expiration Date Visits Requested Visits Authorized [id number] Authorized PCP Requested Referral 06/05/2021 05/29/2022 1 1 Specialty Diagnoses / Procedures Referred By Contac t Referred To Contact MR IMAGING Diagnoses Rectal malignant neoplasm (HCC) Anal squamous cell carcinoma (HCC) Procedures MRI RECTUM WO/W IVCON MRI PELVIS W/O & W/CONTRAST MATERIAL Alexia Rao, [employer] [address] [place] [address] Mr Imaging Referral ID Status Reason Start Date Expiration Date Visits Requested Visits Authorized [id number] Pending Review Auto-Generat ed Referral 07/18/2021 08/17/2022 1 1 Referral ID Status Reason Start Date Expiration Date V isits Requested Visits Authorized [id number] Closed Auto-Generate d Referral 07/18/2021 08/17/2022 1 1 Specialty Diagnoses / Procedures Referred By Contac t Referred To Contact MR IMAGING Diagnoses Malignant neoplasm of rectum (HCC) Procedures MRI RECTUM WO/W IVCON MRI PELVIS W/O & W/CONTRAST MATERIAL Ramiro Cheung MD [address] [address] Mr Imaging Referral ID Status Reason Start Date Expiration Date Visits Requested Visits Authorized [id number] Pending Review Auto-Generat ed Referral 09/25/2021 10/25/2022 1 1 Specialty Diagnoses / Procedures Referred By Contac t Referred To Contact Cardiology Diagnoses Pre-op evaluation 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 heart without angina pectoris Bilateral carotid artery stenosis Procedures CONSULT TO CARDIOLOGY OFFICE/OUTPATIENT [facility] 60-74 MINUTES Kristel John PA-C [address] [place] [address] Referral ID Status Reason Start Date Expiration Date Visits Requested Visits Authorized [id number] Authorized PCP Requested Referral 01/07/2022 01/07/2023 1 1 Specialty Diagnoses / Procedures Referred By Contac t Referred To Contact CT IMAGING Diagnoses Rectal cancer (HCC) Malignant neoplasm of rectum (HCC) Procedures CT CHEST W IVCON DIAGNOSTIC COMPUTED TOMOGRAPHY THORAX W/CONTRAST Ramiro Cheung MD [address] [place] [address] Ct Imaging Referral ID Status Reason Start Date Expiration Date V isits Requested Visits Authorized [id number] Closed Auto-Generate d Referral 12/17/2021 01/16/2023 1 1 Specialty Diagnoses / Procedures Referred By Contac t Referred To Contact CT IMAGING Diagnoses Rectal cancer (HCC) Malignant neoplasm of rectum (HCC) Procedures CT ABD/PEL W IVCON CT ABD & PELVIS W/CONTRAST Ramiro Cheung MD [address] [place] [address] Ct Imaging Referral ID Status Reason Start Date Expiration Date V isits Requested Visits Authorized [id number] Closed Auto-Generate d Referral 12/17/2021 01/16/2023 1 1 Specialty Diagnoses / Procedures Referred By Contac t Referred To Contact Radiology Diagnoses Acoustic neuroma (CMS/HCC) Procedures MR IAC w [place] [address] [address] Department [place] [address] Referral ID Status Reason Start Date Expiration Date Visits Requested Visits Authorized [id number] Pending Review Perform Procedure 03/05/2023 03/04/2024 1 1 Specialty Diagnoses / Procedures Referred By Contac t Referred To Contact Orthopedics Diagnoses Left arm pain Procedures CONSULT TO ORTHOPAEDICS OFFICE/OUTPATIENT [facility] 60 MINUTES Norm Parker, MAIL ROOM CLERK.[employer] [address] [place] [address] Referral ID Status Reason Start Date Expiration Date Visits Requested Visits Authorized [id number] Authorized PCP Requested Referral 04/23/2023 04/20/2024 1 1 Specialty Diagnoses / Procedures Referred By Contac t Referred To Contact Podiatry Diagnoses Ingrown nail of great toe Procedures CONSULT TO PODIATRY OFFICE/OUTPATIENT [facility] 60 MINUTES Mary Anne Alejandro, MAIL ROOM CLERK.[employer] [address] [place] [address] Referral ID Status Reason Start Date Expiration Date Visits Requested Visits Authorized [id number] Authorized PCP Requested Referral 05/31/2023 05/30/2024 1 1 Specialty Diagnoses / Procedures Referred By Contac t Referred To Contact Diagnoses History of rectal cancer Procedures REFER TO PACC - PRE ANESTHESIA CONSULTATION CLINIC OFFICE/OUTPATIENT [facility] 60 MINUTES Ramiro Cheung MD [address] [place] [address] Referral ID Status Reason Start Date Expiration Date Visits Requested Visits Authorized [id number] Authorized PCP Requested Referral 08/03/2023 08/02/2024 1 1 Specialty Diagnoses / Procedures Referred By Contac t Referred To Contact MR IMAGING Diagnoses History of rectal cancer Procedures MRI RECTUM WO/W IVCON MRI PELVIS W/O & W/CONTRAST MATERIAL Ramiro Cheung MD [address] [place] [address] Mr Imaging [place] [address] Referral ID Status Reason Start Date Expiration Date Visits Requested Visits Authorized [id number] Authorized Auto-Generat ed Referral 08/03/2023 09/01/2024 1 1 Specialty Diagnoses / Procedures Referred By Contac t [facility] Diagnoses History of rectal cancer Procedures ECG COMPLETE ECG ROUTINE ECG W/LEAST 12 LDS W/I&R Ramiro Cheung MD [address] [place] [address] [facility] [place] [address] [place] [address] Referral ID Status Reason Start Date Expiration Date Visits Requested Visits Authorized [id number] Pending Review Auto-Generat ed Referral 08/03/2023 08/02/2024 1 1 Specialty Diagnoses / Procedures Referred By Karen lira Referred To Contact Diagnoses History of rectal cancer Procedures CONSULT TO [facility] OFFICE/OUTPATIENT [facility] 60 MINUTES Ramiro Cheung MD [address] [place] [address] Referral ID Status Reason Start Date Expiration Date Visits Requested Visits Authorized [id number] Authorized PCP Requested Referral 08/03/2023 08/02/2024 1 1 Chief Complaint and Reason for Visit Chief Complaint LINE PLACEMENT Chief Complaint cardiac clearance S/P CABG PRE OP Reason for Visit Dilated aortic root Atherosclerotic heart disease of [place] coronary artery without angina pectoris Bilateral carotid artery stenosis Dyslipidemia Essential hypertension Peripheral vascular disease Chief Complaint cardiac clearance S/P CABG PRE OP FEVER Reason for Visit Dilated aortic root Atherosclerotic heart disease of [place] coronary artery without angina pectoris Bilateral carotid artery stenosis Dyslipidemia Essential hypertension Peripheral vascular disease Chief Complaint cardiac clearance S/P CABG PRE OP FEVER Amb Documentation rectal bleed Reason for Visit Dilated aortic root Atherosclerotic heart disease of [place] coronary artery without angina pectoris Bilateral carotid artery stenosis Dyslipidemia Essential hypertension Peripheral vascular disease Chief Complaint cardiac clearance S/P CABG PRE OP FEVER Amb Documentation rectal bleed SOB Reason for Visit Dilated aortic root Atherosclerotic heart disease of [place] coronary artery without angina pectoris Bilateral carotid artery stenosis Dyslipidemia Essential hypertension Peripheral vascular disease Chief Complaint cardiac clearance S/P CABG PRE OP FEVER Amb Documentation rectal bleed SOB CS/PVD Amb Documentation Reason for Visit Dilated aortic root Atherosclerotic heart disease of [place] coronary artery without angina pectoris Bilateral carotid artery stenosis Dyslipidemia Essential hypertension Peripheral vascular disease Chief Complaint 9 M FU CONSULT-SUBLAVIAN STEAL SYNDROME VASCULAR DISEASE Reason for Visit Dilated aortic root Atherosclerotic heart disease of [place] coronary artery without angina pectoris Bilateral carotid artery stenosis Dyslipidemia Essential hypertension Peripheral vascular disease 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 Claudication of left lower extremity 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 Chief Complaint 9 M FU CONSULT-SUBLAVIAN STEAL SYNDROME VASCULAR DISEASE ASSULT Reason for Visit Dilated aortic root Atherosclerotic heart disease of [place] coronary artery without angina pectoris Bilateral carotid artery stenosis Dyslipidemia Essential hypertension Peripheral vascular disease 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 Claudication of left lower extremity 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 Chief Complaint 9 M FU CONSULT-SUBLAVIAN STEAL SYNDROME VASCULAR DISEASE ASSULT Atherosclerosis of [place] arteries of extremities Reason for Visit Dilated aortic root Atherosclerotic heart disease of [place] coronary artery without angina pectoris Bilateral carotid [...] 2024 10:38am Atherosclerotic heart diseas e of [place] coronary artery without angina pectoris November 29, [...] section and content) DATE CREATED AUTHOR 02/11/2021 [facility] DATE CREATED AUTHOR AUTHOR'S ORGANIZ ATION 02/16/2021 [facility] DATE CREATED AUTHOR AUTHOR'S ORGANIZ ATION 12/07/2022 [facility] DATE CREATED AUTHOR AUTHOR'S ORGANIZ ATION 07/19/2023 [facility] DATE CREATED AUTHOR AUTHOR'S ORGANIZ ATION 09/24/2023 [facility] DATE CREATED AUTHOR AUTHOR'S ORGANIZ ATION 04/05/2024 [facility] DATE CREATED AUTHOR AUTHOR'S ORGANIZ ATION 12/27/2024 [facility] DATE CREATED AUTHOR AUTHOR'S ORGANIZ ATION 01/03/2025 [facility] Comments (unrecognize d section and content) In the event this informatio n is protected by the Federal Confidentiality of Alcohol and Drug Abuse Patient Records regulations: The Federal rules restrict any use of the information to criminally investigate or prosecute any alcohol or drug abuse patient.[facility] the event this information is protected by the Federal Confidentiality of Alcohol and Drug Abuse Patient Records regulations: The Federal rules restrict any use of the information to criminally investigate or prosecute any alcohol or drug abuse patient.[facility]In the event this information is protected by the Federal Confidentiality of Alcohol and Drug Abuse Patient Records regulations: The Federal rules restrict any use of the information to criminally investigate or prosecute any alcohol or drug abuse patient.[facility]In the event this information is protected by the Federal Confidentiality of Alcohol and Drug Abuse Patient Records regulations: The Federal rules restrict any use of the information to criminally investigate or prosecute any alcohol or drug abuse patient.[facility]In the event this information is protected by the Federal Confidentiality of Alcohol and Drug Abuse Patient Records regulations: The Federal rules restrict any use of the information to criminally investigate or prosecute any alcohol or drug abuse patient.[facility]In the event this information is protected by the Federal Confidentiality of Alcohol and Drug Abuse Patient Records regulations: The Federal rules restrict any use of the information to criminally investigate or prosecute any alcohol or drug abuse patient.[facility]In the event this information is protected by the Federal Confidentiality of Alcohol and Drug Abuse Patient Records regulations: The Federal rules restrict any use of the information to criminally investigate or prosecute any alcohol or drug abuse patient.[facility]In the event this information is protected by the Federal Confidentiality of Alcohol and Drug Abuse Patient Records regulations: The Federal rules restrict any use of the information to criminally investigate or prosecute any alcohol or drug abuse patient.[facility] HospitalIn the event this information is protected by the Federal Confidentiality of Alcohol and Drug Abuse Patient Records regulations: The Federal rules restrict any use of the information to criminally investigate or prosecute any alcohol or drug abuse patient.[facility] HospitalIn the event this information is protected by the Federal Confidentiality of Alcohol and Drug Abuse Patient Records regulations: The Federal rules restrict any use of the information to criminally investigate or prosecute any alcohol or drug abuse patient.[facility] HospitalIn the event this information is protected by the Federal Confidentiality of Alcohol and Drug Abuse Patient Records regulations: The Federal rules restrict any use of the information to criminally investigate or prosecute any alcohol or drug abuse patient.[facility] HospitalIn the event this information is protected by the Federal Confidentiality of Alcohol and Drug Abuse Patient Records regulations: The Federal rules restrict any use of the information to criminally investigate or prosecute any alcohol or drug abuse patient.[facility] HospitalIn the event this information is protected by the Federal Confidentiality of Alcohol and Drug Abuse Patient Records regulations: The Federal rules restrict any use of the information to criminally investigate or prosecute any alcohol or drug abuse patient.[facility] HospitalIn the event this information is protected by the Federal Confidentiality of Alcohol and Drug Abuse Patient Records regulations: The Federal rules restrict any use of the information to criminally investigate or prosecute any alcohol or drug abuse patient.[facility] HospitalIn the event this information is protected by the Federal Confidentiality of Alcohol and Drug Abuse Patient Records regulations: The Federal rules restrict any use of the information to criminally investigate or prosecute any alcohol or drug abuse patient.[facility] HospitalIn the event this information is protected by the Federal Confidentiality of Alcohol and Drug Abuse Patient Records regulations: The Federal rules restrict any use of the information to criminally investigate or prosecute any alcohol or drug abuse patient.[facility] HospitalIn the event this information is protected by the Federal Confidentiality of Alcohol and Drug Abuse Patient Records regulations: The Federal rules restrict any use of the information to criminally investigate or prosecute any alcohol or drug abuse patient.[facility] HospitalIn the event this information is protected by the Federal Confidentiality of Alcohol and Drug Abuse Patient Records regulations: The Federal rules restrict any use of the information to criminally investigate or prosecute any alcohol or drug abuse patient.[facility] HospitalIn the event this information is protected by the Federal Confidentiality of Alcohol and Drug Abuse Patient Records regulations: The Federal rules restrict any use of the information to criminally investigate or prosecute any alcohol or drug abuse patient.[facility] HospitalIn the event this information is protected by the Federal Confidentiality of Alcohol and Drug Abuse Patient Records regulations: The Federal rules restrict any use of the information to criminally investigate or prosecute any alcohol or drug abuse patient.[facility] HospitalIn the event this information is protected by the Federal Confidentiality of Alcohol and Drug Abuse Patient Records regulations: The Federal rules restrict any use of the information to criminally investigate or prosecute any alcohol or drug abuse patient.[facility] HospitalIn the event this information is protected by the Federal Confidentiality of Alcohol and Drug Abuse Patient Records regulations: The Federal rules restrict any use of the information to criminally investigate or prosecute any alcohol or drug abuse patient.[facility] HospitalIn the event this information is protected by the Federal Confidentiality of Alcohol and Drug Abuse Patient Records regulations: The Federal rules restrict any use of the information to criminally investigate or prosecute any alcohol or drug abuse patient.[facility] HospitalIn the event this information is protected by the Federal Confidentiality of Alcohol and Drug Abuse Patient Records regulations: The Federal rules restrict any use of the information to criminally investigate or prosecute any alcohol or drug abuse patient.[facility] HospitalIn the event this information is protected by the Federal Confidentiality of Alcohol and Drug Abuse Patient Records regulations: The Federal rules restrict any use of the information to criminally investigate or prosecute any alcohol or drug abuse patient.[facility] HospitalIn the event this information is protected by the Federal Confidentiality of Alcohol and Drug Abuse Patient Records regulations: The Federal rules restrict any use of the information to criminally investigate or prosecute any alcohol or drug abuse patient.[facility] HospitalIn the event this information is protected by the Federal Confidentiality of Alcohol and Drug Abuse Patient Records regulations: The Federal rules restrict any use of the information to criminally investigate or prosecute any alcohol or drug abuse patient.[facility] HospitalIn the event this information is protected by the Federal Confidentiality of Alcohol and Drug Abuse Patient Records regulations: The Federal rules restrict any use of the information to criminally investigate or prosecute any alcohol or drug abuse patient.[facility] HospitalIn the event this information is protected by the Federal Confidentiality of Alcohol and Drug Abuse Patient Records regulations: The Federal rules restrict any use of the information to criminally investigate or prosecute any alcohol or drug abuse patient.[facility] HospitalIn the event this information is protected by the Federal Confidentiality of Alcohol and Drug Abuse Patient Records regulations: The Federal rules restrict any use of the information to criminally investigate or prosecute any alcohol or drug abuse patient.[facility] HospitalIn the event this information is protected by the Federal Confidentiality of Alcohol and Drug Abuse Patient Records regulations: The Federal rules restrict any use of the information to criminally investigate or prosecute any alcohol or drug abuse patient.[facility] HospitalIn the event this information is protected by the Federal Confidentiality of Alcohol and Drug Abuse Patient Records regulations: The Federal rules restrict any use of the information to criminally investigate or prosecute any alcohol or drug abuse patient.[facility] HospitalIn the event this information is protected by the Federal Confidentiality of Alcohol and Drug Abuse Patient Records regulations: The Federal rules restrict any use of the information to criminally investigate or prosecute any alcohol or drug abuse patient.[facility] HospitalIn the event this information is protected by the Federal Confidentiality of Alcohol and Drug Abuse Patient Records regulations: The Federal rules restrict any use of the information to criminally investigate or prosecute any alcohol or drug abuse patient.[facility] HospitalIn the event this information is protected by the Federal Confidentiality of Alcohol and Drug Abuse Patient Records regulations: The Federal rules restrict any use of the information to criminally investigate or prosecute any alcohol or drug abuse patient.[facility] HospitalIn the event this information is protected by the Federal Confidentiality of Alcohol and Drug Abuse Patient Records regulations: The Federal rules restrict any use of the information to criminally investigate or prosecute any alcohol or drug abuse patient.[facility] HospitalIn the event this information is protected by the Federal Confidentiality of Alcohol and Drug Abuse Patient Records regulations: The Federal rules restrict any use of the information to criminally investigate or prosecute any alcohol or drug abuse patient.[facility] HospitalIn the event this information is protected by the Federal Confidentiality of Alcohol and Drug Abuse Patient Records regulations: The Federal rules restrict any use of the information to criminally investigate or prosecute any alcohol or drug abuse patient.[facility] HospitalIn the event this information is protected by the Federal Confidentiality of Alcohol and Drug Abuse Patient Records regulations: The Federal rules restrict any use of the information to criminally investigate or prosecute any alcohol or drug abuse patient.[facility] HospitalIn the event this information is protected by the Federal Confidentiality of Alcohol and Drug Abuse Patient Records regulations: The Federal rules restrict any use of the information to criminally investigate or prosecute any alcohol or drug abuse patient.[facility] HospitalIn the event this information is protected by the Federal Confidentiality of Alcohol and Drug Abuse Patient Records regulations: The Federal rules restrict any use of the information to criminally investigate or prosecute any alcohol or drug abuse patient.[facility] HospitalIn the event this information is protected by the Federal Confidentiality of Alcohol and Drug Abuse Patient Records regulations: The Federal rules restrict any use of the information to criminally investigate or prosecute any alcohol or drug abuse patient.[facility] HospitalIn the event this information is protected by the Federal Confidentiality of Alcohol and Drug Abuse Patient Records regulations: The Federal rules restrict any use of the information to criminally investigate or prosecute any alcohol or drug abuse patient.[facility] HospitalIn the event this information is protected by the Federal Confidentiality of Alcohol and Drug Abuse Patient Records regulations: The Federal rules restrict any use of the information to criminally investigate or prosecute any alcohol or drug abuse patient.[facility] HospitalIn the event this information is protected by the Federal Confidentiality of Alcohol and Drug Abuse Patient Records regulations: The Federal rules restrict any use of the information to criminally investigate or prosecute any alcohol or drug abuse patient.[facility] HospitalIn the event this information is protected by the Federal Confidentiality of Alcohol and Drug Abuse Patient Records regulations: The Federal rules restrict any use of the information to criminally investigate or prosecute any alcohol or drug abuse patient.[facility] HospitalIn the event this information is protected by the Federal Confidentiality of Alcohol and Drug Abuse Patient Records regulations: The Federal rules restrict any use of the information to criminally investigate or prosecute any alcohol or drug abuse patient.[facility] HospitalIn the event this information is protected by the Federal Confidentiality of Alcohol and Drug Abuse Patient Records regulations: The Federal rules restrict any use of the information to criminally investigate or prosecute any alcohol or drug abuse patient.[facility] HospitalIn the event this information is protected by the Federal Confidentiality of Alcohol and Drug Abuse Patient Records regulations: The Federal rules restrict any use of the information to criminally investigate or prosecute any alcohol or drug abuse patient.[facility] HospitalIn the event this information is protected by the Federal Confidentiality of Alcohol and Drug Abuse Patient Records regulations: The Federal rules restrict any use of the information to criminally investigate or prosecute any alcohol or drug abuse patient.[facility] HospitalIn the event this information is protected by the Federal Confidentiality of Alcohol and Drug Abuse Patient Records regulations: The Federal rules restrict any use of the information to criminally investigate or prosecute any alcohol or drug abuse patient.[facility] HospitalIn the event this information is protected by the Federal Confidentiality of Alcohol and Drug Abuse Patient Records regulations: The Federal rules restrict any use of the information to criminally investigate or prosecute any alcohol or drug abuse patient.[facility] HospitalIn the event this information is protected by the Federal Confidentiality of Alcohol and Drug Abuse Patient Records regulations: The Federal rules restrict any use of the information to criminally investigate or prosecute any alcohol or drug abuse patient.[facility] HospitalIn the event this information is protected by the Federal Confidentiality of Alcohol and Drug Abuse Patient Records regulations: The Federal rules restrict any use of the information to criminally investigate or prosecute any alcohol or drug abuse patient.[facility] HospitalIn the event this information is protected by the Federal Confidentiality of Alcohol and Drug Abuse Patient Records regulations: The Federal rules restrict any use of the information to criminally investigate or prosecute any alcohol or drug abuse patient.[facility] HospitalIn the event this information is protected by the Federal Confidentiality of Alcohol and Drug Abuse Patient Records regulations: The Federal rules restrict any use of the information to criminally investigate or prosecute any alcohol or drug abuse patient.[facility] HospitalIn the event this information is protected by the Federal Confidentiality of Alcohol and Drug Abuse Patient Records regulations: The Federal rules restrict any use of the information to criminally investigate or prosecute any alcohol or drug abuse patient.[facility] HospitalIn the event this information is protected by the Federal Confidentiality of Alcohol and Drug Abuse Patient Records regulations: The Federal rules restrict any use of the information to criminally investigate or prosecute any alcohol or drug abuse patient.[facility] HospitalIn the event this information is protected by the Federal Confidentiality of Alcohol and Drug Abuse Patient Records regulations: The Federal rules restrict any use of the information to criminally investigate or prosecute any alcohol or drug abuse patient.[facility] HospitalIn the event this information is protected by the Federal Confidentiality of Alcohol and Drug Abuse Patient Records regulations: The Federal rules restrict any use of the information to criminally investigate or prosecute any alcohol or drug abuse patient.[facility] HospitalIn the event this information is protected by the Federal Confidentiality of Alcohol and Drug Abuse Patient Records regulations: The Federal rules restrict any use of the information to criminally investigate or prosecute any alcohol or drug abuse patient.[facility] HospitalIn the event this information is protected by the Federal Confidentiality of Alcohol and Drug Abuse Patient Records regulations: The Federal rules restrict any use of the information to criminally investigate or prosecute any alcohol or drug abuse patient.[facility] HospitalIn the event this information is protected by the Federal Confidentiality of Alcohol and Drug Abuse Patient Records regulations: The Federal rules restrict any use of the information to criminally investigate or prosecute any alcohol or drug abuse patient.[facility] HospitalIn the event this information is protected by the Federal Confidentiality of Alcohol and Drug Abuse Patient Records regulations: The Federal rules restrict any use of the information to criminally investigate or prosecute any alcohol or drug abuse patient.[facility] HospitalIn the event this information is protected by the Federal Confidentiality of Alcohol and Drug Abuse Patient Records regulations: The Federal rules restrict any use of the information to criminally investigate or prosecute any alcohol or drug abuse patient.[facility] HospitalIn the event this information is protected by the Federal Confidentiality of Alcohol and Drug Abuse Patient Records regulations: The Federal rules restrict any use of the information to criminally investigate or prosecute any alcohol or drug abuse patient.[facility] HospitalIn the event this information is protected by the Federal Confidentiality of Alcohol and Drug Abuse Patient Records regulations: The Federal rules restrict any use of the information to criminally investigate or prosecute any alcohol or drug abuse patient.[facility] HospitalIn the event this information is protected by the Federal Confidentiality of Alcohol and Drug Abuse Patient Records regulations: The Federal rules restrict any use of the information to criminally investigate or prosecute any alcohol or drug abuse patient.[facility] HospitalIn the event this information is protected by the Federal Confidentiality of Alcohol and Drug Abuse Patient Records regulations: The Federal rules restrict any use of the information to criminally investigate or prosecute any alcohol or drug abuse patient.[facility] HospitalIn the event this information is protected by the Federal Confidentiality of Alcohol and Drug Abuse Patient Records regulations: The Federal rules restrict any use of the information to criminally investigate or prosecute any alcohol or drug abuse patient.[facility] HospitalIn the event this information is protected by the Federal Confidentiality of Alcohol and Drug Abuse Patient Records regulations: The Federal rules restrict any use of the information to criminally investigate or prosecute any alcohol or drug abuse patient.[facility] HospitalIn the event this information is protected by the Federal Confidentiality of Alcohol and Drug Abuse Patient Records regulations: The Federal rules restrict any use of the information to criminally investigate or prosecute any alcohol or drug abuse patient.[facility] HospitalIn the event this information is protected by the Federal Confidentiality of Alcohol and Drug Abuse Patient Records regulations: The Federal rules restrict any use of the information to criminally investigate or prosecute any alcohol or drug abuse patient.[facility] HospitalIn the event this information is protected by the Federal Confidentiality of Alcohol and Drug Abuse Patient Records regulations: The Federal rules restrict any use of the information to criminally investigate or prosecute any alcohol or drug abuse patient.[facility] HospitalIn the event this information is protected by the Federal Confidentiality of Alcohol and Drug Abuse Patient Records regulations: The Federal rules restrict any use of the information to criminally investigate or prosecute any alcohol or drug abuse patient.[facility] HospitalIn the event this information is protected by the Federal Confidentiality of Alcohol and Drug Abuse Patient Records regulations: The Federal rules restrict any use of the information to criminally investigate or prosecute any alcohol or drug abuse patient.[facility] HospitalIn the event this information is protected by the Federal Confidentiality of Alcohol and Drug Abuse Patient Records regulations: The Federal rules restrict any use of the information to criminally investigate or prosecute any alcohol or drug abuse patient.[facility] HospitalIn the event this information is protected by the Federal Confidentiality of Alcohol and Drug Abuse Patient Records regulations: The Federal rules restrict any use of the information to criminally investigate or prosecute any alcohol or drug abuse patient.[facility] HospitalIn the event this information is protected by the Federal Confidentiality of Alcohol and Drug Abuse Patient Records regulations: The Federal rules restrict any use of the information to criminally investigate or prosecute any alcohol or drug abuse patient.[facility] HospitalIn the event this information is protected by the Federal Confidentiality of Alcohol and Drug Abuse Patient Records regulations: The Federal rules restrict any use of the information to criminally investigate or prosecute any alcohol or drug abuse patient.[facility] HospitalIn the event this information is protected by the Federal Confidentiality of Alcohol and Drug Abuse Patient Records regulations: The Federal rules restrict any use of the information to criminally investigate or prosecute any alcohol or drug abuse patient.[facility] HospitalIn the event this information is protected by the Federal Confidentiality of Alcohol and Drug Abuse Patient Records regulations: The Federal rules restrict any use of the information to criminally investigate or prosecute any alcohol or drug abuse patient.[facility] HospitalIn the event this information is protected by the Federal Confidentiality of Alcohol and Drug Abuse Patient Records regulations: The Federal rules restrict any use of the information to criminally investigate or prosecute any alcohol or drug abuse patient.[facility] HospitalIn the event this information is protected by the Federal Confidentiality of Alcohol and Drug Abuse Patient Records regulations: The Federal rules restrict any use of the information to criminally investigate or prosecute any alcohol or drug abuse patient.[facility] HospitalIn the event this information is protected by the Federal Confidentiality of Alcohol and Drug Abuse Patient Records regulations: The Federal rules restrict any use of the information to criminally investigate or prosecute any alcohol or drug abuse patient.[facility] HospitalIn the event this information is protected by the Federal Confidentiality of Alcohol and Drug Abuse Patient Records regulations: The Federal rules restrict any use of the information to criminally investigate or prosecute any alcohol or drug abuse patient.[facility] HospitalIn the event this information is protected by the Federal Confidentiality of Alcohol and Drug Abuse Patient Records regulations: The Federal rules restrict any use of the information to criminally investigate or prosecute any alcohol or drug abuse patient.[facility] HospitalIn the event this information is protected by the Federal Confidentiality of Alcohol and Drug Abuse Patient Records regulations: The Federal rules restrict any use of the information to criminally investigate or prosecute any alcohol or drug abuse patient.[facility] HospitalIn the event this information is protected by the Federal Confidentiality of Alcohol and Drug Abuse Patient Records regulations: The Federal rules restrict any use of the information to criminally investigate or prosecute any alcohol or drug abuse patient.[facility] HospitalIn the event this information is protected by the Federal Confidentiality of Alcohol and Drug Abuse Patient Records regulations: The Federal rules restrict any use of the information to criminally investigate or prosecute any alcohol or drug abuse patient.[facility] HospitalIn the event this information is protected by the Federal Confidentiality of Alcohol and Drug Abuse Patient Records regulations: The Federal rules restrict any use of the information to criminally investigate or prosecute any alcohol or drug abuse patient.[facility] HospitalIn the event this information is protected by the Federal Confidentiality of Alcohol and Drug Abuse Patient Records regulations: The Federal rules restrict any use of the information to criminally investigate or prosecute any alcohol or drug abuse patient.[facility] HospitalIn the event this information is protected by the Federal Confidentiality of Alcohol and Drug Abuse Patient Records regulations: The Federal rules restrict any use of the information to criminally investigate or prosecute any alcohol or drug abuse patient.[facility] HospitalIn the event this information is protected by the Federal Confidentiality of Alcohol and Drug Abuse Patient Records regulations: The Federal rules restrict any use of the information to criminally investigate or prosecute any alcohol or drug abuse patient.[facility] HospitalIn the event this information is protected by the Federal Confidentiality of Alcohol and Drug Abuse Patient Records regulations: The Federal rules restrict any use of the information to criminally investigate or prosecute any alcohol or drug abuse patient.[facility] HospitalIn the event this information is protected by the Federal Confidentiality of Alcohol and Drug Abuse Patient Records regulations: The Federal rules restrict any use of the information to criminally investigate or prosecute any alcohol or drug abuse patient.[facility] HospitalIn the event this information is protected by the Federal Confidentiality of Alcohol and Drug Abuse Patient Records regulations: The Federal rules restrict any use of the information to criminally investigate or prosecute any alcohol or drug abuse patient.[facility] HospitalIn the event this information is protected by the Federal Confidentiality of Alcohol and Drug Abuse Patient Records regulations: The Federal rules restrict any use of the information to criminally investigate or prosecute any alcohol or drug abuse patient.[facility] HospitalIn the event this information is protected by the Federal Confidentiality of Alcohol and Drug Abuse Patient Records regulations: The Federal rules restrict any use of the information to criminally investigate or prosecute any alcohol or drug abuse patient.[facility] HospitalIn the event this information is protected by the Federal Confidentiality of Alcohol and Drug Abuse Patient Records regulations: The Federal rules restrict any use of the information to criminally investigate or prosecute any alcohol or drug abuse patient.[facility] HospitalIn the event this information is protected by the Federal Confidentiality of Alcohol and Drug Abuse Patient Records regulations: The Federal rules restrict any use of the information to criminally investigate or prosecute any alcohol or drug abuse patient.[facility] HospitalIn the event this information is protected by the Federal Confidentiality of Alcohol and Drug Abuse Patient Records regulations: The Federal rules restrict any use of the information to criminally investigate or prosecute any alcohol or drug abuse patient.[facility] HospitalIn the event this information is protected by the Federal Confidentiality of Alcohol and Drug Abuse Patient Records regulations: The Federal rules restrict any use of the information to criminally investigate or prosecute any alcohol or drug abuse patient.[facility] HospitalIn the event this information is protected by the Federal Confidentiality of Alcohol and Drug Abuse Patient Records regulations: The Federal rules restrict any use of the information to criminally investigate or prosecute any alcohol or drug abuse patient.[facility] HospitalIn the event this information is protected by the Federal Confidentiality of Alcohol and Drug Abuse Patient Records regulations: The Federal rules restrict any use of the information to criminally investigate or prosecute any alcohol or drug abuse patient.[facility] HospitalIn the event this information is protected by the Federal Confidentiality of Alcohol and Drug Abuse Patient Records regulations: The Federal rules restrict any use of the information to criminally investigate or prosecute any alcohol or drug abuse patient.[facility] HospitalIn the event this information is protected by the Federal Confidentiality of Alcohol and Drug Abuse Patient Records regulations: The Federal rules restrict any use of the information to criminally investigate or prosecute any alcohol or drug abuse patient.[facility] HospitalIn the event this information is protected by the Federal Confidentiality of Alcohol and Drug Abuse Patient Records regulations: The Federal rules restrict any use of the information to criminally investigate or prosecute any alcohol or drug abuse patient.[facility] HospitalIn the event this information is protected by the Federal Confidentiality of Alcohol and Drug Abuse Patient Records regulations: The Federal rules restrict any use of the information to criminally investigate or prosecute any alcohol or drug abuse patient.[facility] HospitalIn the event this information is protected by the Federal Confidentiality of Alcohol and Drug Abuse Patient Records regulations: The Federal rules restrict any use of the information to criminally investigate or prosecute any alcohol or drug abuse patient.[facility] HospitalIn the event this information is protected by the Federal Confidentiality of Alcohol and Drug Abuse Patient Records regulations: The Federal rules restrict any use of the information to criminally investigate or prosecute any alcohol or drug abuse patient.[facility] HospitalIn the event this information is protected by the Federal Confidentiality of Alcohol and Drug Abuse Patient Records regulations: The Federal rules restrict any use of the information to criminally investigate or prosecute any alcohol or drug abuse patient.[facility] HospitalIn the event this information is protected by the Federal Confidentiality of Alcohol and Drug Abuse Patient Records regulations: The Federal rules restrict any use of the information to criminally investigate or prosecute any alcohol or drug abuse patient.[facility] HospitalIn the event this information is protected by the Federal Confidentiality of Alcohol and Drug Abuse Patient Records regulations: The Federal rules restrict any use of the information to criminally investigate or prosecute any alcohol or drug abuse patient.[facility] HospitalIn the event this information is protected by the Federal Confidentiality of Alcohol and Drug Abuse Patient Records regulations: The Federal rules restrict any use of the information to criminally investigate or prosecute any alcohol or drug abuse patient.[facility] HospitalIn the event this information is protected by the Federal Confidentiality of Alcohol and Drug Abuse Patient Records regulations: The Federal rules restrict any use of the information to criminally investigate or prosecute any alcohol or drug abuse patient.[facility] HospitalIn the event this information is protected by the Federal Confidentiality of Alcohol and Drug Abuse Patient Records regulations: The Federal rules restrict any use of the information to criminally investigate or prosecute any alcohol or drug abuse patient.[facility] HospitalIn the event this information is protected by the Federal Confidentiality of Alcohol and Drug Abuse Patient Records regulations: The Federal rules restrict any use of the information to criminally investigate or prosecute any alcohol or drug abuse patient.[facility] HospitalIn the event this information is protected by the Federal Confidentiality of Alcohol and Drug Abuse Patient Records regulations: The Federal rules restrict any use of the information to criminally investigate or prosecute any alcohol or drug abuse patient.[facility] HospitalIn the event this information is protected by the Federal Confidentiality of Alcohol and Drug Abuse Patient Records regulations: The Federal rules restrict any use of the information to criminally investigate or prosecute any alcohol or drug abuse patient.[facility] HospitalIn the event this information is protected by the Federal Confidentiality of Alcohol and Drug Abuse Patient Records regulations: The Federal rules restrict any use of the information to criminally investigate or prosecute any alcohol or drug abuse patient.[facility] HospitalIn the event this information is protected by the Federal Confidentiality of Alcohol and Drug Abuse Patient Records regulations: The Federal rules restrict any use of the information to criminally investigate or prosecute any alcohol or drug abuse patient.[facility] HospitalIn the event this information is protected by the Federal Confidentiality of Alcohol and Drug Abuse Patient Records regulations: The Federal rules restrict any use of the information to criminally investigate or prosecute any alcohol or drug abuse patient.[facility] HospitalIn the event this information is protected by the Federal Confidentiality of Alcohol and Drug Abuse Patient Records regulations: The Federal rules restrict any use of the information to criminally investigate or prosecute any alcohol or drug abuse patient.[facility] HospitalIn the event this information is protected by the Federal Confidentiality of Alcohol and Drug Abuse Patient Records regulations: The Federal rules restrict any use of the information to criminally investigate or prosecute any alcohol or drug abuse patient.[facility] HospitalIn the event this information is protected by the Federal Confidentiality of Alcohol and Drug Abuse Patient Records regulations: The Federal rules restrict any use of the information to criminally investigate or prosecute any alcohol or drug abuse patient.[facility] HospitalIn the event this information is protected by the Federal Confidentiality of Alcohol and Drug Abuse Patient Records regulations: The Federal rules restrict any use of the information to criminally investigate or prosecute any alcohol or drug abuse patient.[facility] HospitalIn the event this information is protected by the Federal Confidentiality of Alcohol and Drug Abuse Patient Records regulations: The Federal rules restrict any use of the information to criminally investigate or prosecute any alcohol or drug abuse patient.[facility] HospitalIn the event this information is protected by the Federal Confidentiality of Alcohol and Drug Abuse Patient Records regulations: The Federal rules restrict any use of the information to criminally investigate or prosecute any alcohol or drug abuse patient.[facility] HospitalIn the event this information is protected by the Federal Confidentiality of Alcohol and Drug Abuse Patient Records regulations: The Federal rules restrict any use of the information to criminally investigate or prosecute any alcohol or drug abuse patient.[facility] HospitalIn the event this information is protected by the Federal Confidentiality of Alcohol and Drug Abuse Patient Records regulations: The Federal rules restrict any use of the information to criminally investigate or prosecute any alcohol or drug abuse patient.[facility] HospitalIn the event this information is protected by the Federal Confidentiality of Alcohol and Drug Abuse Patient Records regulations: The Federal rules restrict any use of the information to criminally investigate or prosecute any alcohol or drug abuse patient.[facility] HospitalIn the event this information is protected by the Federal Confidentiality of Alcohol and Drug Abuse Patient Records regulations: The Federal rules restrict any use of the information to criminally investigate or prosecute any alcohol or drug abuse patient.[facility] HospitalIn the event this information is protected by the Federal Confidentiality of Alcohol and Drug Abuse Patient Records regulations: The Federal rules restrict any use of the information to criminally investigate or prosecute any alcohol or drug abuse patient.[facility] HospitalIn the event this information is protected by the Federal Confidentiality of Alcohol and Drug Abuse Patient Records regulations: The Federal rules restrict any use of the information to criminally investigate or prosecute any alcohol or drug abuse patient.[facility] HospitalIn the event this information is protected by the Federal Confidentiality of Alcohol and Drug Abuse Patient Records regulations: The Federal rules restrict any use of the information to criminally investigate or prosecute any alcohol or drug abuse patient.[facility] HospitalIn the event this information is protected by the Federal Confidentiality of Alcohol and Drug Abuse Patient Records regulations: The Federal rules restrict any use of the information to criminally investigate or prosecute any alcohol or drug abuse patient.[facility] HospitalIn the event this information is protected by the Federal Confidentiality of Alcohol and Drug Abuse Patient Records regulations: The Federal rules restrict any use of the information to criminally investigate or prosecute any alcohol or drug abuse patient.[facility] HospitalIn the event this information is protected by the Federal Confidentiality of Alcohol and Drug Abuse Patient Records regulations: The Federal rules restrict any use of the information to criminally investigate or prosecute any alcohol or drug abuse patient.[facility] HospitalIn the event this information is protected by the Federal Confidentiality of Alcohol and Drug Abuse Patient Records regulations: The Federal rules restrict any use of the information to criminally investigate or prosecute any alcohol or drug abuse patient.[facility] HospitalIn the event this information is protected by the Federal Confidentiality of Alcohol and Drug Abuse Patient Records regulations: The Federal rules restrict any use of the information to criminally investigate or prosecute any alcohol or drug abuse patient.[facility] HospitalIn the event this information is protected by the Federal Confidentiality of Alcohol and Drug Abuse Patient Records regulations: The Federal rules restrict any use of the information to criminally investigate or prosecute any alcohol or drug abuse patient.[facility] HospitalIn the event this information is protected by the Federal Confidentiality of Alcohol and Drug Abuse Patient Records regulations: The Federal rules restrict any use of the information to criminally investigate or prosecute any alcohol or drug abuse patient.[facility] HospitalIn the event this information is protected by the Federal Confidentiality of Alcohol and Drug Abuse Patient Records regulations: The Federal rules restrict any use of the information to criminally investigate or prosecute any alcohol or drug abuse patient.[facility] HospitalIn the event this information is protected by the Federal Confidentiality of Alcohol and Drug Abuse Patient Records regulations: The Federal rules restrict any use of the information to criminally investigate or prosecute any alcohol or drug abuse patient.[facility] HospitalIn the event this information is protected by the Federal Confidentiality of Alcohol and Drug Abuse Patient Records regulations: The Federal rules restrict any use of the information to criminally investigate or prosecute any alcohol or drug abuse patient.[facility] HospitalIn the event this information is protected by the Federal Confidentiality of Alcohol and Drug Abuse Patient Records regulations: The Federal rules restrict any use of the information to criminally investigate or prosecute any alcohol or drug abuse patient.[facility] HospitalIn the event this information is protected by the Federal Confidentiality of Alcohol and Drug Abuse Patient Records regulations: The Federal rules restrict any use of the information to criminally investigate or prosecute any alcohol or drug abuse patient.[facility] HospitalIn the event this information is protected by the Federal Confidentiality of Alcohol and Drug Abuse Patient Records regulations: The Federal rules restrict any use of the information to criminally investigate or prosecute any alcohol or drug abuse patient.[facility] HospitalIn the event this information is protected by the Federal Confidentiality of Alcohol and Drug Abuse Patient Records regulations: The Federal rules restrict any use of the information to criminally investigate or prosecute any alcohol or drug abuse patient.[facility] HospitalIn the event this information is protected by the Federal Confidentiality of Alcohol and Drug Abuse Patient Records regulations: The Federal rules restrict any use of the information to criminally investigate or prosecute any alcohol or drug abuse patient.[facility] HospitalIn the event this information is protected by the Federal Confidentiality of Alcohol and Drug Abuse Patient Records regulations: The Federal rules restrict any use of the information to criminally investigate or prosecute any alcohol or drug abuse patient.[facility] HospitalIn the event this information is protected by the Federal Confidentiality of Alcohol and Drug Abuse Patient Records regulations: The Federal rules restrict any use of the information to criminally investigate or prosecute any alcohol or drug abuse patient.[facility] HospitalIn the event this information is protected by the Federal Confidentiality of Alcohol and Drug Abuse Patient Records regulations: The Federal rules restrict any use of the information to criminally investigate or prosecute any alcohol or drug abuse patient.[facility] HospitalIn the event this information is protected by the Federal Confidentiality of Alcohol and Drug Abuse Patient Records regulations: The Federal rules restrict any use of the information to criminally investigate or prosecute any alcohol or drug abuse patient.[facility] HospitalIn the event this information is protected by the Federal Confidentiality of Alcohol and Drug Abuse Patient Records regulations: The Federal rules restrict any use of the information to criminally investigate or prosecute any alcohol or drug abuse patient.[facility] HospitalIn the event this information is protected by the Federal Confidentiality of Alcohol and Drug Abuse Patient Records regulations: The Federal rules restrict any use of the information to criminally investigate or prosecute any alcohol or drug abuse patient.[facility] HospitalIn the event this information is protected by the Federal Confidentiality of Alcohol and Drug Abuse Patient Records regulations: The Federal rules restrict any use of the information to criminally investigate or prosecute any alcohol or drug abuse patient.[facility] HospitalIn the event this information is protected by the Federal Confidentiality of Alcohol and Drug Abuse Patient Records regulations: The Federal rules restrict any use of the information to criminally investigate or prosecute any alcohol or drug abuse patient.[facility] HospitalIn the event this information is protected by the Federal Confidentiality of Alcohol and Drug Abuse Patient Records regulations: The Federal rules restrict any use of the information to criminally investigate or prosecute any alcohol or drug abuse patient.[facility] HospitalIn the event this information is protected by the Federal Confidentiality of Alcohol and Drug Abuse Patient Records regulations: The Federal rules restrict any use of the information to criminally investigate or prosecute any alcohol or drug abuse patient.[facility] HospitalIn the event this information is protected by the Federal Confidentiality of Alcohol and Drug Abuse Patient Records regulations: The Federal rules restrict any use of the information to criminally investigate or prosecute any alcohol or drug abuse patient.[facility] HospitalIn the event this information is protected by the Federal Confidentiality of Alcohol and Drug Abuse Patient Records regulations: The Federal rules restrict any use of the information to criminally investigate or prosecute any alcohol or drug abuse patient.[facility] HospitalIn the event this information is protected by the Federal Confidentiality of Alcohol and Drug Abuse Patient Records regulations: The Federal rules restrict any use of the information to criminally investigate or prosecute any alcohol or drug abuse patient.[facility] HospitalIn the event this information is protected by the Federal Confidentiality of Alcohol and Drug Abuse Patient Records regulations: The Federal rules restrict any use of the information to criminally investigate or prosecute any alcohol or drug abuse patient.[facility] HospitalIn the event this information is protected by the Federal Confidentiality of Alcohol and Drug Abuse Patient Records regulations: The Federal rules restrict any use of the information to criminally investigate or prosecute any alcohol or drug abuse patient.[facility] HospitalIn the event this information is protected by the Federal Confidentiality of Alcohol and Drug Abuse Patient Records regulations: The Federal rules restrict any use of the information to criminally investigate or prosecute any alcohol or drug abuse patient.[facility] HospitalIn the event this information is protected by the Federal Confidentiality of Alcohol and Drug Abuse Patient Records regulations: The Federal rules restrict any use of the information to criminally investigate or prosecute any alcohol or drug abuse patient.[facility] HospitalIn the event this information is protected by the Federal Confidentiality of Alcohol and Drug Abuse Patient Records regulations: The Federal rules restrict any use of the information to criminally investigate or prosecute any alcohol or drug abuse patient.[facility] HospitalIn the event this information is protected by the Federal Confidentiality of Alcohol and Drug Abuse Patient Records regulations: The Federal rules restrict any use of the information to criminally investigate or prosecute any alcohol or drug abuse patient.[facility] HospitalIn the event this information is protected by the Federal Confidentiality of Alcohol and Drug Abuse Patient Records regulations: The Federal rules restrict any use of the information to criminally investigate or prosecute any alcohol or drug abuse patient.[facility] HospitalIn the event this information is protected by the Federal Confidentiality of Alcohol and Drug Abuse Patient Records regulations: The Federal rules restrict any use of the information to criminally investigate or prosecute any alcohol or drug abuse patient.[facility] HospitalIn the event this information is protected by the Federal Confidentiality of Alcohol and Drug Abuse Patient Records regulations: The Federal rules restrict any use of the information to criminally investigate or prosecute any alcohol or drug abuse patient.[facility] HospitalIn the event this information is protected by the Federal Confidentiality of Alcohol and Drug Abuse Patient Records regulations: The Federal rules restrict any use of the information to criminally investigate or prosecute any alcohol or drug abuse patient.[facility] HospitalIn the event this information is protected by the Federal Confidentiality of Alcohol and Drug Abuse Patient Records regulations: The Federal rules restrict any use of the information to criminally investigate or prosecute any alcohol or drug abuse patient.[facility] HospitalIn the event this information is protected by the Federal Confidentiality of Alcohol and Drug Abuse Patient Records regulations: The Federal rules restrict any use of the information to criminally investigate or prosecute any alcohol or drug abuse patient.[facility] HospitalIn the event this information is protected by the Federal Confidentiality of Alcohol and Drug Abuse Patient Records regulations: The Federal rules restrict any use of the information to criminally investigate or prosecute any alcohol or drug abuse patient.[facility] HospitalIn the event this information is protected by the Federal Confidentiality of Alcohol and Drug Abuse Patient Records regulations: The Federal rules restrict any use of the information to criminally investigate or prosecute any alcohol or drug abuse patient.[facility] HospitalIn the event this information is protected by the Federal Confidentiality of Alcohol and Drug Abuse Patient Records regulations: The Federal rules restrict any use of the information to criminally investigate or prosecute any alcohol or drug abuse patient.[facility] HospitalIn the event this information is protected by the Federal Confidentiality of Alcohol and Drug Abuse Patient Records regulations: The Federal rules restrict any use of the information to criminally investigate or prosecute any alcohol or drug abuse patient.[facility] HospitalIn the event this information is protected by the Federal Confidentiality of Alcohol and Drug Abuse Patient Records regulations: The Federal rules restrict any use of the information to criminally investigate or prosecute any alcohol or drug abuse patient.[facility] HospitalIn the event this information is protected by the Federal Confidentiality of Alcohol and Drug Abuse Patient Records regulations: The Federal rules restrict any use of the information to criminally investigate or prosecute any alcohol or drug abuse patient.[facility] HospitalIn the event this information is protected by the Federal Confidentiality of Alcohol and Drug Abuse Patient Records regulations: The Federal rules restrict any use of the information to criminally investigate or prosecute any alcohol or drug abuse patient.[facility] HospitalIn the event this information is protected by the Federal Confidentiality of Alcohol and Drug Abuse Patient Records regulations: The Federal rules restrict any use of the information to criminally investigate or prosecute any alcohol or drug abuse patient.[facility] HospitalIn the event this information is protected by the Federal Confidentiality of Alcohol and Drug Abuse Patient Records regulations: The Federal rules restrict any use of the information to criminally investigate or prosecute any alcohol or drug abuse patient.[facility] Reason for Visit (unrecogniz ed section and content) Reason Comments Consult Specialty Diagnoses / Procedures Referred By Contac t Referred To Contact Diagnoses Anal squamous cell carcinoma (HCC) Procedures CONSULT TO HEMATOLOGY/ONCOLOGY OFFICE/OUTPATIENT NEW HIGH MDM 60-74 MINUTES Ramiro Cheung MD [address] [place] [address] Referral ID Status Reason Start Date Expiration Date V isits Requested Visits Authorized [id number] Closed PCP Requested Referral 05/22/2021 05/22/2022 1 1 Reason Comments Consult Specialty Diagnoses / Procedures Referred By Contac t Referred To Contact Radiation Oncology Diagnoses Anal squamous cell carcinoma (HCC) Procedures RAD/ONC CONSULT OFFICE/OUTPATIENT NEW HIGH MDM 60-74 MINUTES Ramiro Cheung MD [address] [place] [id number] Referral ID Status Reason Start Date Expiration Date V isits Requested Visits Authorized [id number] Closed PCP Requested Referral 05/22/2021 05/22/2022 1 [...] Procedures CONSULT TO ONCOLOGY OFFICE/OUTPATIENT NEW HIGH [facility] 60-74 MINUTES Caty Bowens MD [address] [place] [address] Referral ID Status Reason Start Date Expiration Date V isits Requested Visits Authorized [id number] Closed PCP Requested Referral 06/05/2021 05/29/2022 1 1 Reason Comments Follow Up Reason Comments Patient Question Reason Comments Benefits Investigation Reason Comments Blood Draw (CVAD) Reason Comments Radiotherapy On-treatment Visit 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 Care Need [...] COLON SINGLE CONTRAST STUDY Ramiro Cheung MD [address] [place] [address] Xr Imaging Referral ID Status Reason Start Date Expiration Date V isits Requested Visits Authorized [id number] Closed Auto-Generate d Referral 04/01/2022 05/01/2023 1 [...] [place] [address] Department [place] [address] Referral ID Status Reason Start Date Expiration Date Visits Requested Visits Authorized [id number] Pending Review Perform Procedure 03/05/2023 03/04/2024 1 [...] HIGH MDM 60 MINUTES Ramiro Cheung MD [address] [place] [address] Referral ID Status Reason Start Date Expiration Date V isits Requested Visits Authorized [id number] Closed PCP Requested Referral 08/03/2023 08/02/2024 1 1 Reason Comments Radiology MRI Specialty Diagnoses / Procedures Referred By Kraen lira Referred To Contact MR IMAGING Diagnoses History of rectal cancer Procedures MRI RECTUM WO/W IVCON MRI PELVIS W/O & W/CONTRAST MATERIAL Ramiro Cheung MD [address] [place] [address] [place] [address] Referral ID Status Reason Start Date Expiration Date V isits Requested Visits Authorized [id number] Closed Auto-Generate d Referral 08/03/2023 09/01/2024 1 1 Reason Onset Date Comments Refill Request 10/22/2023 Reason Comments Patient Question left shoulder pain 1 0/10 Reason Comments Pain (Shoulder Pain) lefthas been to PT at [facility] per Dr. 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 Sonographer Relationship Specialty Start Date End Date Pcp, No PCP - General 04/29/21 11/28/21 Caty Bowens MD [address] [place] [address] Hematology/Oncology 05/29/21 Vascular Sonographer Relationship Specialty Start Date End Date Pcp, No PCP - General 04/29/21 11/28/21 Caty Bowens MD [address] [place] [address] Hematology/Oncology 05/29/21 Vascular Sonographer Relationship Specialty Start Date End Date Pcp, No PCP - General 04/29/21 11/28/21 Caty Bowens MD [address] [place] [address] Hematology/Oncology 05/29/21 Marisela Rome MD, [address] [place], [place] [id number] Physician Radiation Oncology 05/30/21 Vascular Sonographer Relationship Specialty Start Date End Date Pcp, No PCP - General 04/29/21 11/28/21 Caty Bowens MD [address] [place] [address] Hematology/Oncology 05/29/21 Marisela Rome MD, [address] [place] [place], [place] [id number] Physician Radiation Oncology 05/30/21 Vascular Sonographer Relationship Specialty Start Date End Date Pcp, No PCP - General 04/29/21 11/28/21 Caty Bowens MD [address] [place] [address] Hematology/Oncology 05/29/21 Marisela Rome MD, [address] [place], [place] [phone] Physician Radiation Oncology 05/30/21 Vascular Sonographer Relationship Specialty Start Date End Date Pcp, No PCP - General 04/29/21 11/28/21 Caty Bowens MD [address] [place] [address] Hematology/Oncology 05/29/21 Marisela Rome MD, [address] [place], [place] [phone] Physician Radiation Oncology 05/30/21 Amelia Souza, RN Specialty Physical Therapist Technician Oncology 06/04/21 Vascular Sonographer Relationship Specialty Start Date End Date Pcp, No PCP - General 04/29/21 11/28/21 Caty Bowens MD [address] [place] [address] Hematology/Oncology 05/29/21 Marisela Rome MD, [address] [place] [address] Physician Radiation Oncology 05/30/21 Vascular Sonographer Relationship Specialty Start Date End Date Pcp, No PCP - General 04/29/21 11/28/21 Caty Bowens MD [address] [place], [place] [phone] Hematology/Oncology 05/29/21 Marisela Rome MD, [address] [place] [address] Physician Radiation Oncology 05/30/21 Amelia Souza RN Specialty Physical Therapist Technician Oncology 06/04/21 Vascular Sonographer Relationship Specialty Start Date End Date Pcp, No PCP - General 04/29/21 11/28/21 Caty Bowens MD [address] [place] [address] Hematology/Oncology 05/29/21 Marisela Rome MD, [address] [place] [address] Physician Radiation Oncology 05/30/21 Amelia Souza RN Specialty Physical Therapist Technician Oncology 06/04/21 Vascular Sonographer Relationship Specialty Start Date End Date Pcp, No PCP - General 04/29/21 11/28/21 Caty Bowens MD [address] [place] [address] Hematology/Oncology 05/29/21 Marisela Rome MD, [address] [place] [address] Physician Radiation Oncology 05/30/21 Amelia Souza RN Specialty Physical Therapist Technician Oncology 06/04/21 Vascular Sonographer Relationship Specialty Start Date End Date Pcp, No PCP - General 04/29/21 11/28/21 Caty Bowens MD [address] [place], [place] [id number] Hematology/Oncology 05/29/21 Marisela Rome MD, [address] [facility] [place] [phone] Physician Radiation Oncology 05/30/21 Amelia Souza RN Specialty Physical Therapist Technician Oncology 06/04/21 Vascular Sonographer Relationship Specialty Start Date End Date Pcp, No PCP - General 04/29/21 11/28/21 Caty Bowens MD [address] [place] [address] Hematology/Oncology 05/29/21 Marisela Rome MD, [address] [facility] [place] [address] Physician Radiation Oncology 05/30/21 Amelia Souza RN Specialty Physical Therapist Technician Oncology 06/04/21 Vascular Sonographer Relationship Specialty Start Date End Date Pcp, No PCP - General 04/29/21 11/28/21 Caty Bowens MD [address] [place] [address] Hematology/Oncology 05/29/21 Marisela Rome MD, [address] [place] [address] Physician Radiation Oncology 05/30/21 Amelia Souza RN Specialty Physical Therapist Technician Oncology 06/04/21 Vascular Sonographer Relationship Specialty Start Date End Date Pcp, No PCP - General 04/29/21 11/28/21 Caty Bowens MD [address] [place], [place] [id number] Hematology/Oncology 05/29/21 Marisela Rome MD, [address] [place], [place] [id number] [phone] Physician Radiation Oncology 05/30/21 Amelia Souza RN Specialty Physical Therapist Technician Oncology 06/04/21 Vascular Sonographer Relationship Specialty Start Date End Date Pcp, No PCP - General 04/29/21 11/28/21 Caty Bowens MD [address] [place], [place] [phone] Hematology/Oncology 05/29/21 Marisela Rome MD, MD [address] [place] [address] Physician Radiation Oncology 05/30/21 Amelia Souza RN Specialty Physical Therapist Technician Oncology 06/04/21 Vascular Sonographer Relationship Specialty Start Date End Date Pcp, No PCP - General 04/29/21 11/28/21 Caty Bowens MD [address] [place] [address] Hematology/Oncology 05/29/21 Marisela Rome MD, [address] [place] [address] Physician Radiation Oncology 05/30/21 Amelia Souza RN Specialty Physical Therapist Technician Oncology 06/04/21 Vascular Sonographer Relationship Specialty Start Date End Date Pcp, No PCP - General 04/29/21 11/28/21 Caty Bowens MD [address] [place] [address] Hematology/Oncology 05/29/21 Marisela Rome MD, [address] [place] [address] Physician Radiation Oncology 05/30/21 Amelia Souza RN Specialty Physical Therapist Technician Oncology 06/04/21 Vascular Sonographer Relationship Specialty Start Date End Date Pcp, No PCP - General 04/29/21 11/28/21 Caty Bowens MD [address] [place] [address] Hematology/Oncology 05/29/21 Marisela Rome MD, [address] [place] [place], [place] [phone] Physician Radiation Oncology 05/30/21 Amelia Souza RN Specialty Physical Therapist Technician Oncology 06/04/21 Vascular Sonographer Relationship Specialty Start Date End Date Pcp, No PCP - General 04/29/21 11/28/21 Caty Bowens MD [address] [place] [address] Hematology/Oncology 05/29/21 Marisela Rome MD, [address] [place] [place], [place] [phone] Physician Radiation Oncology 05/30/21 Amelia Souza RN Specialty Physical Therapist Technician Oncology 06/04/21 Vascular Sonographer Relationship Specialty Start Date End Date Pcp, No PCP - General 04/29/21 11/28/21 Caty Bowens MD [address] [place] [address] Hematology/Oncology 05/29/21 Marisela Rome MD, [address] [place] [address] Physician Radiation Oncology 05/30/21 Amelia Souza RN Specialty Physical Therapist Technician Oncology 06/04/21 Vascular Sonographer Relationship Specialty Start Date End Date Pcp, No PCP - General 04/29/21 11/28/21 Caty Bowens MD [address] [place] [address] Hematology/Oncology 05/29/21 Marisela Rome MD, [address] [place] [place], [place] [phone] Physician Radiation Oncology 05/30/21 Amelia Souza RN Specialty Physical Therapist Technician Oncology 06/04/21 Vascular Sonographer Relationship Specialty Start Date End Date Pcp, No PCP - General 04/29/21 11/28/21 Caty Bowens MD [address] [place], [place] [phone] Hematology/Oncology 05/29/21 Marisela Rome MD, [address] [place], [place] [phone] Physician Radiation Oncology 05/30/21 Amelia Souza RN Specialty Physical Therapist Technician Oncology 06/04/21 Vascular Sonographer Relationship Specialty Start Date End Date Pcp, No PCP - General 04/29/21 11/28/21 Caty Bowens MD [address] [place], [place] [id number] Hematology/Oncology 05/29/21 Marisela Rome MD, [address] [facility] [place] [phone] Physician Radiation Oncology 05/30/21 Amelia Souza RN Specialty Physical Therapist Technician Oncology 06/04/21 Vascular Sonographer Relationship Specialty Start Date End Date Pcp, No PCP - General 04/29/21 11/28/21 Caty Bowens MD [address] [place] [address] Hematology/Oncology 05/29/21 Marisela Rome MD, [address] [place] [address] Physician Radiation Oncology 05/30/21 Amelia Souza RN Specialty Physical Therapist Technician Oncology 06/04/21 Vascular Sonographer Relationship Specialty Start Date End Date Pcp, No PCP - General 04/29/21 11/28/21 Caty Bowens MD [address] [place], [place] [id number] Hematology/Oncology 05/29/21 Marisela Rome MD, [address] [place] [address] Physician Radiation Oncology 05/30/21 Amelia Souza RN Specialty Physical Therapist Technician Oncology 06/04/21 Vascular Sonographer Relationship Specialty Start Date End Date Pcp, No PCP - General 04/29/21 11/28/21 Caty Bowens MD [address] [place], [place] [phone] Hematology/Oncology 05/29/21 Marisela Rome MD, [address] [place] [address] Physician Radiation Oncology 05/30/21 Amelia Souza RN Specialty Physical Therapist Technician Oncology 06/04/21 Vascular Sonographer Relationship Specialty Start Date End Date Pcp, No PCP - General 04/29/21 11/28/21 Caty Bowens MD [address] [place] [address] Hematology/Oncology 05/29/21 Marisela Rome MD, [address] [place] [address] Physician Radiation Oncology 05/30/21 Amelia Souza RN Specialty Physical Therapist Technician Oncology 06/04/21 Vascular Sonographer Relationship Specialty Start Date End Date Pcp, No PCP - General 04/29/21 11/28/21 Caty Bowens MD [address] [place] [address] Hematology/Oncology 05/29/21 Marisela Rome MD, [address] [place] [address] Physician Radiation Oncology 05/30/21 Amelia Souza RN Specialty Physical Therapist Technician Oncology 06/04/21 Vascular Sonographer Relationship Specialty Start Date End Date Pcp, No PCP - General 04/29/21 11/28/21 Caty Bowens MD [address] [place] [address] Hematology/Oncology 05/29/21 Marisela Rome MD, [address] [place], [place] [address] [phone] Physician Radiation Oncology 05/30/21 Amelia Souza RN Specialty Physical Therapist Technician Oncology 06/04/21 Vascular Sonographer Relationship Specialty Start Date End Date Pcp, No PCP - General 04/29/21 11/28/21 Caty Bowens MD [address] [place] [address] Hematology/Oncology 05/29/21 Marisela Rome MD, [address] [place] [address] Physician Radiation Oncology 05/30/21 Amelia Souza RN Specialty Physical Therapist Technician Oncology 06/04/21 Vascular Sonographer Relationship Specialty Start Date End Date Pcp, No PCP - General 04/29/21 11/28/21 Caty Bwoens MD [address] [place] [id number] Hematology/Oncology 05/29/21 Marisela Rome MD, [address] [place] [address] Physician Radiation Oncology 05/30/21 Amelia Souza RN Specialty Physical Therapist Technician Oncology 06/04/21 Vascular Sonographer Relationship Specialty Start Date End Date Pcp, No PCP - General 04/29/21 11/28/21 Caty Bowens MD [address] [place], [place] [id number] Hematology/Oncology 05/29/21 Marisela Rome MD, [address] [place] [address] Physician Radiation Oncology 05/30/21 Amelia Souza RN Specialty Physical Therapist Technician Oncology 06/04/21 Vascular Sonographer Relationship Specialty Start Date End Date Pcp, No PCP - General 04/29/21 11/28/21 Caty Bowens MD [address] [place], [place] [id number] Hematology/Oncology 05/29/21 Marisela Rome MD, [address] [place] [address] Physician Radiation Oncology 05/30/21 Amelia Souza RN Specialty Physical Therapist Technician Oncology 06/04/21 Vascular Sonographer Relationship Specialty Start Date End Date Pcp, No PCP - General 04/29/21 11/28/21 Caty Bowens MD [address] [place], [place] [id number] Hematology/Oncology 05/29/21 Marisela Rome MD, [address] [place] [address] Physician Radiation Oncology 05/30/21 Amelia Souza RN Specialty Physical Therapist Technician Oncology 06/04/21 Vascular Sonographer Relationship Specialty Start Date End Date Pcp, No PCP - General 04/29/21 11/28/21 Caty Bowens MD [address] [place] [address] Hematology/Oncology 05/29/21 Marisela Rome MD, [address] [place] [address] Physician Radiation Oncology 05/30/21 Amelia Souza RN Specialty Physical Therapist Technician Oncology 06/04/21 Vascular Sonographer Relationship Specialty Start Date End Date Pcp, No PCP - General 04/29/21 11/28/21 Caty Bowens MD [address] [place] [address] Hematology/Oncology 05/29/21 Marisela Rome MD, [address] [place], [place] [phone] Physician Radiation Oncology 05/30/21 Amelia Souza RN Specialty Physical Therapist Technician Oncology 06/04/21 Vascular Sonographer Relationship Specialty Start Date End Date Pcp, No PCP - General 04/29/21 11/28/21 Caty Bowens MD [address] [place] [address] Hematology/Oncology 05/29/21 Marisela Rome MD, [address] [place] [address] Physician Radiation Oncology 05/30/21 Amelia Souza RN Specialty Physical Therapist Technician Oncology 06/04/21 Vascular Sonographer Relationship Specialty Start Date End Date Pcp, No PCP - General 04/29/21 11/28/21 Caty Bowens MD [address] [place] [address] Hematology/Oncology 05/29/21 Marisela Rome MD, [address] [facility] [place] [address] Physician Radiation Oncology 05/30/21 Amelia Souza RN Specialty Physical Therapist Technician Oncology 06/04/21 Vascular Sonographer Relationship Specialty Start Date End Date Pcp, No PCP - General 04/29/21 11/28/21 Caty Bowens MD [address] [place] [address] Hematology/Oncology 05/29/21 Marisela Rome MD, [address] [place], [place] [phone] Physician Radiation Oncology 05/30/21 Amelia Souza, RN Specialty Physical Therapist Technician Oncology 06/04/21 Vascular Sonographer Relationship Specialty Start Date End Date Caty Bowens MD [address] [place] [address] Hematology/Oncology 05/29/21 Marisela Rome MD, [address] [place], [place] [address] Physician Radiation Oncology 05/30/21 Amelia Souza RN Specialty Physical Therapist Technician Oncology 06/04/21 Vascular Sonographer Relationship Specialty Start Date End Date Caty Bowens MD [address] [place] [address] Hematology/Oncology 05/29/21 Marisela Rome MD, [address] [place], [place] [address] Physician Radiation Oncology 05/30/21 Amelia Souza RN Specialty Physical Therapist Technician Oncology 06/04/21 Vascular Sonographer Relationship Specialty Start Date End Date Caty Bowens MD [address] [place] [address] Hematology/Oncology 05/29/21 Marisela Rome MD, [address] [place], [place] 87979482 [phone] Physician Radiation Oncology 05/30/21 Amelia Souza RN Specialty Physical Therapist Technician Oncology 06/04/21 Helen Roa [address] [address] Cardiology 01/07/22 Vascular Sonographer Relationship Specialty Start Date End Date Caty Bowens MD [address] [place] [address] Hematology/Oncology 05/29/21 Marisela Rome MD, [address] [place] [address] Physician Radiation Oncology 05/30/21 Amelia Souza RN Specialty Physical Therapist Technician Oncology 06/04/21 Helen Roa [address] [address] Cardiology 01/07/22 Vascular Sonographer Relationship Specialty Start Date End Date Caty Bowens MD [address] [place] [address] Hematology/Oncology 05/29/21 Marisela Rome MD, [address] [place] [address] Physician Radiation Oncology 05/30/21 Amelia Souza RN Specialty Physical Therapist Technician Oncology 06/04/21 Helen Roa [address] [place] [phone] Cardiology 01/07/22 Vascular Sonographer Relationship Specialty Start Date End Date Caty Bowens MD [address] [place] [address] Hematology/Oncology 05/29/21 Marisela Rome MD, [address] [place] [address] Physician Radiation Oncology 05/30/21 Amelia Souza RN Specialty Physical Therapist Technician Oncology 06/04/21 Helen Roa [address] [address] Cardiology 01/07/22 Vascular Sonographer Relationship Specialty Start Date End Date Caty Bowens MD [address] [place] [address] Hematology/Oncology 05/29/21 Marisela Rome MD, [address] [place] [address] Physician Radiation Oncology 05/30/21 Amelia Souza RN Specialty Physical Therapist Technician Oncology 06/04/21 Helen Roa [address] [address] Cardiology 01/07/22 Vascular Sonographer Relationship Specialty Start Date End Date Caty Bowens MD [address] [place] [address] Hematology/Oncology 05/29/21 Marisela Rome MD, [address] [place] [address] Physician Radiation Oncology 05/30/21 Amelia Souza RN Specialty Physical Therapist Technician Oncology 06/04/21 Helen Roa [address] [address] Cardiology 01/07/22 Vascular Sonographer Relationship Specialty Start Date End Date Caty Bowens MD [address] [place] [address] Hematology/Oncology 05/29/21 Marisela Rome MD, [address] [place] [address] Physician Radiation Oncology 05/30/21 Doup, Amelia, RN Specialty Physical Therapist Technician Oncology 06/04/21 Helen Roa [address] [address] Cardiology 01/07/22 Ramiro Cheung MD [address] [place] [address] Referring Colon and Rectal Surgery 01/28/22 Ramiro Cheung MD [address] [place] [address] Home Care Provider Colon and Rectal Surgery 01/28/22 Leandro Cruz, DERRICK [address] [place], [place] [id number] Foam Cutting Supervisor Post Acute Care 01/28/22 Vascular Sonographer Relationship Specialty Start Date End Date Caty Bowens MD [address] [place] [address] Hematology/Oncology 05/29/21 Marisela Rome MD, [address] [place] [address] Physician Radiation Oncology 05/30/21 Amelia Souza RN Specialty Physical Therapist Technician Oncology 06/04/21 Helen Roa [address] [address] Cardiology 01/07/22 Ramiro Cheung MD [address] [place] [address] Referring Colon and Rectal Surgery 01/28/22 Ramiro Cheung MD [address] [place] [address] Home Care Provider Colon and Rectal Surgery 01/28/22 Leandro Cruz RN [address] [place] [address] Foam Cutting Supervisor Post Acute Care 01/28/22 Vascular Sonographer Relationship Specialty Start Date End Date Caty Bowens MD [address] [place] [address] Hematology/Oncology 05/29/21 Marisela Rome MD, [address] [place] [address] Physician Radiation Oncology 05/30/21 Amelia Souza RN Specialty Physical Therapist Technician Oncology 06/04/21 Helen Roa [address] [address] Cardiology 01/07/22 Ramiro Cheung MD [address] [place] [address] Referring Colon and Rectal Surgery 01/28/22 Ramiro Cheung MD [address] [place] [address] Home Care Provider Colon and Rectal Surgery 01/28/22 Leandro Cruz RN [address] [place], [place] [id number] Foam Cutting Supervisor Post Acute Care 01/28/22 Vascular Sonographer Relationship Specialty Start Date End Date Caty Bowens MD [address] [place] [address] Hematology/Oncology 05/29/21 Marisela Rome MD, [address] [place] [address] Physician Radiation Oncology 05/30/21 Amelia Souza RN Specialty Physical Therapist Technician Oncology 06/04/21 Helen Roa [address] [address] Cardiology 01/07/22 Ramiro Cheung MD [address] [place] [address] Referring Colon and Rectal Surgery 01/28/22 Ramiro Cheung MD [address] [place] [address] Home Care Provider Colon and Rectal Surgery 01/28/22 Leandro Cruz RN [address] [place], [place] [address] Foam Cutting Supervisor Post Acute Care 01/28/22 Vascular Sonographer Relationship Specialty Start Date End Date Caty Bowens MD [address] [place] [address] Hematology/Oncology 05/29/21 Marisela Rome MD, [address] [place], [place] [address] Physician Radiation Oncology 05/30/21 Amelia Souza, DERRICK Specialty Physical Therapist Technician Oncology 06/04/21 Helen Roa ANDREA [address] [place] [phone] Cardiology 01/07/22 Ramiro Cheung MD [address] [place] [address] Referring Colon and Rectal Surgery 01/28/22 Ramiro Cheung MD [address] [place] [address] Home Care Provider Colon and Rectal Surgery 01/28/22 Leandro Cruz RN [address] [place] [address] Foam Cutting Supervisor Post Acute Care 01/28/22 Vascular Sonographer Relationship Specialty Start Date End Date Caty Bowens MD [address] [place] [address] Hematology/Oncology 05/29/21 Marisela Rome MD, [address] [place] [address] Physician Radiation Oncology 05/30/21 Amelia Souza, RN Specialty Physical Therapist Technician Oncology 06/04/21 Helen Roa [address] [address] Cardiology 01/07/22 Ramiro Cheung MD [address] [address] Referring Colon and Rectal Surgery 01/28/22 Ramiro Cheung MD [address] [address] Home Care Provider Colon and Rectal Surgery 01/28/22 Leandro Cruz, RN [address] [place] [address] Foam Cutting Supervisor Post Acute Care 01/28/22 Vascular Sonographer Relationship Specialty Start Date End Date Caty Bowens MD [address] [place] [address] Hematology/Oncology 05/29/21 Marisela Rome MD, [address] [place] [address] Physician Radiation Oncology 05/30/21 Amelia Souza, RN Specialty Physical Therapist Technician Oncology 06/04/21 Helen Roa [address] [address] Cardiology 01/07/22 Ramiro Cheung MD [address] [place] [address] Referring Colon and Rectal Surgery 01/28/22 Ramiro Cheung MD [address] [address] Home Care Provider Colon and Rectal Surgery 01/28/22 Leandro Cruz, DERRICK [address] [place], [place] [id number] Foam Cutting Supervisor Post Acute Care 01/28/22 Vascular Sonographer Relationship Specialty Start Date End Date Caty Bowens MD [address] [place] [address] Hematology/Oncology 05/29/21 Marisela Rome MD, [address] [place], [place] [address] Physician Radiation Oncology 05/30/21 Amelia Souza RN Specialty Physical Therapist Technician Oncology 06/04/21 Helen Roa [address] [phone] Cardiology 01/07/22 Ramiro Cheung MD [address] [address] Referring Colon and Rectal Surgery 02/13/22 03/02/22 Ramiro Cheung MD [address] [address] Home Care Provider Colon and Rectal Surgery 02/13/22 Leandro Cruz, DERRICK [address] [place] [address] Foam Cutting Supervisor Post Acute Care 02/24/22 Vascular Sonographer Relationship Specialty Start Date End Date Caty Bowens MD [address] [place] [address] Hematology/Oncology 05/29/21 Marisela Rome MD, [address] [place] [address] Physician Radiation Oncology 05/30/21 Amelia Souza, RN Specialty Physical Therapist Technician Oncology 06/04/21 Helen Roa [address] [address] Cardiology 01/07/22 Ramiro Cheung MD [address] [address] Referring Colon and Rectal Surgery 02/13/22 03/02/22 Ramiro Cheung MD [address] [address] Home Care Provider Colon and Rectal Surgery 02/13/22 Leandro Cruz, DERRICK [address] [place], [place] [id number] Foam Cutting Supervisor Post Acute Care 02/24/22 Vascular Sonographer Relationship Specialty Start Date End Date Caty Bowens MD [address] [place] [address] Hematology/Oncology 05/29/21 Marisela Rome MD, [address] [place] [address] Physician Radiation Oncology 05/30/21 Amelia Souza, RN Specialty Physical Therapist Technician Oncology 06/04/21 Helen Roa [address] [address] Cardiology 01/07/22 Ramiro Cheung MD [address] [address] Referring Colon and Rectal Surgery 02/13/22 03/02/22 Ramiro Cheung MD [address] [place] [address] Home Care Provider Colon and Rectal Surgery 02/13/22 Leandro Cruz RN [address] [place], [place] [id number] Foam Cutting Supervisor Post Acute Care 02/24/22 Vascular Sonographer Relationship Specialty Start Date End Date Caty Bowens MD [address] [place] [address] Hematology/Oncology 05/29/21 Marisela Rome MD, MD [address] [facility] [place] [address] Physician Radiation Oncology 05/30/21 Amelia Souza RN Specialty Physical Therapist Technician Oncology 06/04/21 Helen Roa [address] [address] Cardiology 01/07/22 Ramiro Cheung MD [address] [place] [address] Home Care Provider Colon and Rectal Surgery 02/13/22 Leandro Cruz, DERRICK [address] [place] [address] Foam Cutting Supervisor Post Acute Care 02/24/22 Vascular Sonographer Relationship Specialty Start Date End Date Caty Bowens MD [address] [place] [address] Hematology/Oncology 05/29/21 Marisela Rome MD, MD [address] [place] [address] Physician Radiation Oncology 05/30/21 Amelia Souza RN Specialty Physical Therapist Technician Oncology 06/04/21 Helen Roa [address] [address] Cardiology 01/07/22 Ramiro Cheung MD [address] [place] [address] Home Care Provider Colon and Rectal Surgery 02/13/22 Leandro Cruz, DERRICK [address] [place], [place] [address] Foam Cutting Supervisor Post Acute Care 02/24/22 Vascular Sonographer Relationship Specialty Start Date End Date Caty Bowens MD [address] [place], [place] [address]77195 Hematology/Oncology 05/29/21 Marisela Rome MD, [address] [place] [address] Physician Radiation Oncology 05/30/21 Amelia Souza RN Specialty Physical Therapist Technician Oncology 06/04/21 Helen Roa [address] [address] Cardiology 01/07/22 Ramiro Cheung MD [address] [place] [address] Home Care Provider Colon and Rectal Surgery 02/13/22 Leandro Cruz RN [address] [place], [place] [address] Foam Cutting Supervisor Post Acute Care 02/24/22 Vascular Sonographer Relationship Specialty Start Date End Date Caty Bowens MD [address] [place], [place] [id number] Hematology/Oncology 05/29/21 Marisela Rome MD, [address] [place] [address] Physician Radiation Oncology 05/30/21 Amelia Souza, RN Specialty Physical Therapist Technician Oncology 06/04/21 Helen Roa [address] [address] Cardiology 01/07/22 Ramiro Cheung MD [address] [address] Home Care Provider Colon and Rectal Surgery 02/13/22 Leandro Cruz, RN [address] [place] [address] Foam Cutting Supervisor Post Acute Care 02/24/22 Gurjit Delcid MD [address] [place], [place] [address]25[address] Referring Internal Medicine 03/10/22 Estefany Stern, PT [address] [place], [place] 3099631 Foam Cutting Supervisor Post Acute Care 03/11/22 Vascular Sonographer Relationship Specialty Start Date End Date Caty Bowens MD [address] [place], [place] [address] Hematology/Oncology 05/29/21 Marisela Rome MD, [address] [place] [address] Physician Radiation Oncology 05/30/21 Amelia Souza, RN Specialty Physical Therapist Technician Oncology 06/04/21 Helen Roa [address] [address] Cardiology 01/07/22 Ramiro Cheung MD [address] [address] Home Care Provider Colon and Rectal Surgery 02/13/22 Leandro Cruz RN [address] [place] [address] Foam Cutting Supervisor Post Acute Care 02/24/22 Gurjit Delcid MD [address] [place] [address] Referring Internal Medicine 03/10/22 Estefany Stern, PT [address] [place] [address] Foam Cutting Supervisor Post Acute Care 03/11/22 Vascular Sonographer Relationship Specialty Start Date End Date Caty Bowens MD [address] [place] [id number] Hematology/Oncology 05/29/21 Marisela Rome MD, [address] [place], [place] [address] Physician Radiation Oncology 05/30/21 Amelia Souza RN Specialty Physical Therapist Technician Oncology 06/04/21 Helen Roa [address] [phone] Cardiology 01/07/22 Ramiro Cheung MD [address] [address] Home Care Provider Colon and Rectal Surgery 02/13/22 Leandro Cruz, DERRICK [address] [place], [place] [id number] Foam Cutting Supervisor Post Acute Care 02/24/22 Gurjit Delcid MD [address] [place] [address] Referring Internal Medicine 03/10/22 Estefany Stern, PT [address] [place] [address] Foam Cutting Supervisor Post Acute Care 03/11/22 Vascular Sonographer Relationship Specialty Start Date End Date Caty Bowens MD [address] [place] [address] Hematology/Oncology 05/29/21 Marisela Rome MD, [address] [place] [address] Physician Radiation Oncology 05/30/21 Amelia Souza, RN Specialty Physical Therapist Technician Oncology 06/04/21 Helen Roa [address] [address] Cardiology 01/07/22 Ramiro Cheung MD [address] [address] Home Care Provider Colon and Rectal Surgery 02/13/22 Leandro Cruz, DERRICK [address] [place] [address] Foam Cutting Supervisor Post Acute Care 02/24/22 Gurjit Delcid MD [address] [place] [address] Referring Internal Medicine 03/10/22 Estefany Stern, PT [address] [place] [address] Foam Cutting Supervisor Post Acute Care 03/11/22 Vascular Sonographer Relationship Specialty Start Date End Date Caty Bowens MD [address] [place] [address] Hematology/Oncology 05/29/21 Marisela Rome MD, [address] [place] [address] Physician Radiation Oncology 05/30/21 Amelia Souza, RN Specialty Physical Therapist Technician Oncology 06/04/21 Helen Roa [address] [address] Cardiology 01/07/22 Ramiro Cheung MD [address] [address] Home Care Provider Colon and Rectal Surgery 02/13/22 Leandro Cruz RN [address] [place], [place] [id number] Foam Cutting Supervisor Post Acute Care 02/24/22 Gurjit Delcid MD [address] [place] [address] Referring Internal Medicine 03/10/22 Estefany Stern, RANDALL [address] [place] [address] Foam Cutting Supervisor Post Acute Care 03/11/22 Vascular Sonographer Relationship Specialty Start Date End Date Caty Bowens MD [address] [place] [address] Hematology/Oncology 05/29/21 Marisela Rome MD, [address] [facility] [place] [place] [address] Physician Radiation Oncology 05/30/21 Amelia Souza RN Specialty Physical Therapist Technician Oncology 06/04/21 Helen Roa [address] [address] Cardiology 01/07/22 Ramiro Cheung MD [address] [facility] [address] [address] Home Care Provider Colon and Rectal Surgery 02/13/22 Leandro Cruz RN [address] [place], [place] 1089[address] Foam Cutting Supervisor Post Acute Care 02/24/22 Gurjit Delcid MD [address] [place] [address] Referring Internal Medicine 03/10/22 Estefany Stern, PT [address] [place] [address] Foam Cutting Supervisor Post Acute Care 03/11/22 Vascular Sonographer Relationship Specialty Start Date End Date Caty Bowens MD [address] [place] [address] Hematology/Oncology 05/29/21 Marisela Rome MD, [address] [place], [place] [address] Physician Radiation Oncology 05/30/21 Amelia Souza RN Specialty Physical Therapist Technician Oncology 06/04/21 Helen Roa [address] [phone] Cardiology 01/07/22 Ramiro Cheung MD [address] [address] Home Care Provider Colon and Rectal Surgery 02/13/22 Leandro Cruz, DERRICK [address] [place] [address] Foam Cutting Supervisor Post Acute Care 02/24/22 Gurjit Delcid MD [address] [place] [address] Referring Internal Medicine 03/10/22 Estefany Stern, PT [address] [place] [address] Foam Cutting Supervisor Post Acute Care 03/11/22 Vascular Sonographer Relationship Specialty Start Date End Date Caty Bowens MD [address] [place] [address] Hematology/Oncology 05/29/21 Marisela Rome MD, [address] [place] [address] Physician Radiation Oncology 05/30/21 Amelia Souza, RN Specialty Physical Therapist Technician Oncology 06/04/21 Helen Roa [address] [address] Cardiology 01/07/22 Ramiro Cheung MD [address] [phone] Home Care Provider Colon and Rectal Surgery 02/13/22 Leandro Cruz, RN [address] [place] [address] Foam Cutting Supervisor Post Acute Care 02/24/22 Gurjit Delcid MD [address] [place], [place] [phone] Referring Internal Medicine 03/10/22 Estefany Stern, PT [address] [place], [place] [id number] Foam Cutting Supervisor Post Acute Care 03/11/22 Vascular Sonographer Relationship Specialty Start Date End Date Caty Bowens MD [address] [place] [address] Hematology/Oncology 05/29/21 Marisela Rome MD, [address] [place] [address] Physician Radiation Oncology 05/30/21 Amelia Souza, RN Specialty Physical Therapist Technician Oncology 06/04/21 Helen Roa [address] [address] Cardiology 01/07/22 Ramiro Cheung MD [address] [address] Home Care Provider Colon and Rectal Surgery 02/13/22 Leandro Cruz, RN [address] [place], [place] 155[address]31 Foam Cutting Supervisor Post Acute Care 02/24/22 Gurjit Delcid MD [address] [place] [address] Referring Internal Medicine 03/10/22 Estefany Stern, RANDALL [address] [place] [address] Foam Cutting Supervisor Post Acute Care 03/11/22 Vascular Sonographer Relationship Specialty Start Date End Date Caty Bowens MD [address] [place] [address] Hematology/Oncology 05/29/21 Marisela Rome MD, [address] [place], [place] [phone] Physician Radiation Oncology 05/30/21 Amelia Souza, DERRICK Specialty Physical Therapist Technician Oncology 06/04/21 Helen Roa [address] [phone] Cardiology 01/07/22 Ramiro Cheung MD [address] [address] Home Care Provider Colon and Rectal Surgery 02/13/22 Leandro Cruz, RN [address] [place] [address] Foam Cutting Supervisor Post Acute Care 02/24/22 Gurjit Delcid MD [address] [place] [address] Referring Internal Medicine 03/10/22 Estefany Stern, PT [address] [place] [address] Foam Cutting Supervisor Post Acute Care 03/11/22 Vascular Sonographer Relationship Specialty Start Date End Date Caty Bowens MD [address] [place] [address] Hematology/Oncology 05/29/21 Marisela Rome MD, [address] [place] [address] Physician Radiation Oncology 05/30/21 Amelia Souza, RN Specialty Physical Therapist Technician Oncology 06/04/21 Helen Roa [address] [address] Cardiology 01/07/22 Ramiro Cheung MD [address] [address] Home Care Provider Colon and Rectal Surgery 02/13/22 Leandro Cruz, RN [address] [place] [address] Foam Cutting Supervisor Post Acute Care 02/24/22 Gurjit Delcid MD [address] [place] [address] Referring Internal Medicine 03/10/22 Estefany Stern, PT [address] [place] [address] Foam Cutting Supervisor Post Acute Care 03/11/22 Vascular Sonographer Relationship Specialty Start Date End Date Caty Bowens MD [address] [place] [address] Hematology/Oncology 05/29/21 Marisela Rome MD, [address] [place] [address] Physician Radiation Oncology 05/30/21 Amelia Souza RN Specialty Physical Therapist Technician Oncology 06/04/21 Helen Roa [address] [facility] [address] [address] Cardiology 01/07/22 Ramiro Cheung MD [address] [address] Home Care Provider Colon and Rectal Surgery 02/13/22 Leandro Cruz, DERRICK [address] [place] [address] Foam Cutting Supervisor Post Acute Care 02/24/22 Gurjit Delcid MD [address] [place] [address] Referring Internal Medicine 03/10/22 Estefany Stern, PT [address] [place] [address] Foam Cutting Supervisor Post Acute Care 03/11/22 Vascular Sonographer Relationship Specialty Start Date End Date Caty Bowens MD [address] [place] [address] Hematology/Oncology 05/29/21 Marisela Rome MD, [address] [place], [place] [id number] Physician Radiation Oncology 05/30/21 Amelia Souza RN Specialty Physical Therapist Technician Oncology 06/04/21 Helen Roa [address] [address] Cardiology 01/07/22 Ramiro Cheung MD [address] [address] Home Care Provider Colon and Rectal Surgery 02/13/22 Leandro Cruz RN [address] [place], [place] [id number] Foam Cutting Supervisor Post Acute Care 02/24/22 Gurjit Delcid MD [address] [place], [place] 7008395 Referring Internal Medicine 03/10/22 Estefany Stern, PT [address] [place], [place] [id number] Foam Cutting Supervisor Post Acute Care 03/11/22 Vascular Sonographer Relationship Specialty Start Date End Date Katy Faust MD [address] [place], [place] [id number] PCP - General Internal Medicine 04/06/22 Caty Bowens MD [address] [place], [place] [id number] Hematology/Oncology 05/29/21 Marisela Rome MD, [address] [place], [place] 97088691 Physician Radiation Oncology 05/30/21 Amelia Souza RN Specialty Physical Therapist Technician Oncology 06/04/21 Helen Roa [address] [phone] Cardiology 01/07/22 Ramiro Cheung MD [address] [address] Home Care Provider Colon and Rectal Surgery 02/13/22 Leandro Cruz RN [address] [place], [place] [id number] Foam Cutting Supervisor Post Acute Care 02/24/22 Gurjit Delcid MD [address] [place], [place] [id number] Referring Internal Medicine 03/10/22 Estefany Stern, PT [address] [place] [address] [id number] Foam Cutting Supervisor Post Acute Care 03/11/22 Vascular Sonographer Relationship Specialty Start Date End Date Katy Faust MD [address] [place], [place] [id number] PCP - General Internal Medicine 04/06/22 Caty Bowens MD [address] [place] [id number] Hematology/Oncology 05/29/21 Marisela Rome MD, [address] [place], [place] 98871691 Physician Radiation Oncology 05/30/21 Amelia Souza, RN Specialty Physical Therapist Technician Oncology 06/04/21 Helen Roa [address] [phone] Cardiology 01/07/22 Ramiro Cheung MD 9476 [facility] [address] [place] [address] Home Care Provider Colon and Rectal Surgery 02/13/22 Leandro Cruz, RN [address] [place] [address] Foam Cutting Supervisor Post Acute Care 02/24/22 Gurjit Delcid MD [address] [place] [address] Referring Internal Medicine 03/10/22 Estefany Stren, PT [address] [place] [address] Foam Cutting Supervisor Post Acute Care 03/11/22 Vascular Sonographer Relationship Specialty Start Date End Date Katy Faust MD [address] [place], [place] [id number] PCP - General Internal Medicine 04/06/22 Caty Bowens MD [address] [place], [place] [id number] Hematology/Oncology 05/29/21 Marisela Rome MD, [address] [place], [place] 10550691 Physician Radiation Oncology 05/30/21 Amelia Souza RN Specialty Physical Therapist Technician Oncology 06/04/21 Helen Roa [address] [address] Cardiology 01/07/22 Ramiro Cheung MD [address] [address] Home Care Provider Colon and Rectal Surgery 02/13/22 Leandro Cruz, DERRICK [address] [place] [address] Foam Cutting Supervisor Post Acute Care 02/24/22 Gurjit Delcid MD [address] [place], [place] [phone] Referring Internal Medicine 03/10/22 Estefany Stern, PT [address] [place], [place] 1982931 Foam Cutting Supervisor Post Acute Care 03/11/22 Vascular Sonographer Relationship Specialty Start Date End Date Katy Faust MD [address] [place], [place] [id number] PCP - General Internal Medicine 04/06/22 Caty Bowens MD [address] [place], [place] 6798395 Hematology/Oncology 05/29/21 Marisela Rome MD, [address] [place], [place] 21665691 Physician Radiation Oncology 05/30/21 Amelia Souza, RN Specialty Physical Therapist Technician Oncology 06/04/21 Helen Roa [address] [address] Cardiology 01/07/22 Ramiro Cheung MD [address] [phone] Home Care Provider Colon and Rectal Surgery 02/13/22 Leandro Cruz, DERRICK [address] [place] [address] Foam Cutting Supervisor Post Acute Care 02/24/22 Gurjit Delcid MD [address] [place], [place] 0403195 Referring Internal Medicine 03/10/22 Estefany Stern, PT [address] [place] [address] Foam Cutting Supervisor Post Acute Care 03/11/22 Vascular Sonographer Relationship Specialty Start Date End Date Katy Faust MD [address] [place], [place] [id number] PCP - General Internal Medicine 04/06/22 Caty Bowens MD [address] [place], [place] 8802195 Hematology/Oncology 05/29/21 Marisela Rome MD, [address] [place] [address] Physician Radiation Oncology 05/30/21 Amelia Souza, RN Specialty Physical Therapist Technician Oncology 06/04/21 Helen Roa [address] [address] Cardiology 01/07/22 Ramiro Cheung MD [address] [place] [address] Home Care Provider Colon and Rectal Surgery 02/13/22 Leandro Cruz, RN [address] [place], [place] 2916131 Foam Cutting Supervisor Post Acute Care 02/24/22 Gurjit Delcid MD [address] [place] [address] Referring Internal Medicine 03/10/22 Estefany Stern, PT [address] [place] [address] Foam Cutting Supervisor Post Acute Care 03/11/22 Vascular Sonographer Relationship Specialty Start Date End Date Katy Faust MD [address] [place], [place] [id number] PCP - General Internal Medicine 04/06/22 Caty Bowens MD [address] [place] [address] Hematology/Oncology 05/29/21 Marisela Rome MD, [address] [place], [place] 47696691 Physician Radiation Oncology 05/30/21 Amelia Souza RN Specialty Physical Therapist Technician Oncology 06/04/21 Helen Roa [address] [phone] Cardiology 01/07/22 Ramiro [facility]ung MD 8388 [facility] [address] [address] Home Care Provider Colon and Rectal Surgery 02/13/22 Leandro Cruz RN [address] [place] [address] Foam Cutting Supervisor Post Acute Care 02/24/22 Gurjit Delcid MD [address] [place] [address] Referring Internal Medicine 03/10/22 AnujaLeniLeigh Estefany, PT [address] [place] [address] Foam Cutting Supervisor Post Acute Care 03/11/22 Team Status: Active [...] MD Primary Care Provider Active Carlos Trujillo SECONDARY TEACHER, SECONDARY TEACHER-C Attending Provider Active Team Status: Inactive Member [...] DO Attending Provider, Emergency P rovider Active Vascular Sonographer Relationship Specialty Start Date End Date Katy Faust MD [address] [place], [place] [id number] PCP - General Internal Medicine 04/06/22 Caty Bowens MD [address] [place] [address] Hematology/Oncology 05/29/21 Marisela Rome MD, [address] [place], [place] 37334691 Physician Radiation Oncology 05/30/21 Amelia Souza, DERRICK Specialty Physical Therapist Technician Oncology 06/04/21 Helen Roa [address] [address] Cardiology 01/07/22 Ramiro Cheung MD [address] [address] Home Care Provider Colon and Rectal Surgery 02/13/22 Leandro Cruz, RN [address] [place] [address] Foam Cutting Supervisor Post Acute Care 02/24/22 Gurjit Delcid MD [address] [place], [place] 1134095 Referring Internal Medicine 03/10/22 Estefany Stern, PT [address] [place], [place] 5162631 Foam Cutting Supervisor Post Acute Care 03/11/22 Vascular Sonographer Relationship Specialty Start Date End Date Katy Faust MD [address] [place], [place] [id number] PCP - General Internal Medicine 04/06/22 Caty Bowens MD [address] [place], [place] 8266995 Hematology/Oncology 05/29/21 Marisela Rome MD, [address] [place] [address] Physician Radiation Oncology 05/30/21 Amelia Souza, RN Specialty Physical Therapist Technician Oncology 06/04/21 Helen Roa [address] [address] Cardiology 01/07/22 Ramiro Cheung MD [address] [place] [address] Home Care Provider Colon and Rectal Surgery 02/13/22 Leandro Cruz, RN [address] [place] [address] Foam Cutting Supervisor Post Acute Care 02/24/22 Gurjit Delcid MD [address] [place], [place] [phone] Referring Internal Medicine 03/10/22 Estefany Stern, PT [address] [place] [address] Foam Cutting Supervisor Post Acute Care 03/11/22 Vascular Sonographer Relationship Specialty Start Date End Date Katy Faust MD [address] [place], [place] [id number] PCP - General Internal Medicine 04/06/22 Caty Bowens MD [address] [place] [address] Hematology/Oncology 05/29/21 Marisela Rome MD, [address] [place], [place] 63298561 [phone] Physician Radiation Oncology 05/30/21 Amelia Souza, RN Specialty Physical Therapist Technician Oncology 06/04/21 Helen Roa [address] [facility] [address] [place] [address] Cardiology 01/07/22 Ramiro Cheung MD [address] [address] Home Care Provider Colon and Rectal Surgery 02/13/22 Leandro Cruz, DERRICK [address] [place], [place] 6707931 Foam Cutting Supervisor Post Acute Care 02/24/22 Gurjit Delcid MD [address] [place] [address] Referring Internal Medicine 03/10/22 Estefany Stern, PT [address] [place], [place] 3602531 Foam Cutting Supervisor Post Acute Care 03/11/22 Vascular Sonographer Relationship Specialty Start Date End Date Katy Faust MD [address] [place], [place] [id number] PCP - General Internal Medicine 04/06/22 Caty Bowens MD [address] [place] [address] Hematology/Oncology 05/29/21 Marisela Rome MD, [address] [place], [place] 27294691 Physician Radiation Oncology 05/30/21 Amelia Souza RN Specialty Physical Therapist Technician Oncology 06/04/21 Helen Roa [address] [address] Cardiology 01/07/22 Ramiro Cheung MD [address] [address] Home Care Provider Colon and Rectal Surgery 02/13/22 Leandro Cruz RN [address] [place], [place] 3678931 Foam Cutting Supervisor Post Acute Care 02/24/22 Gurjit Delcid MD [address] [place], [place] 1193395 Referring Internal Medicine 03/10/22 Estefany Stern, PT [address] [place], [place] 2639531 Foam Cutting Supervisor Post Acute Care 03/11/22 Vascular Sonographer Relationship Specialty Start Date End Date Katy Faust MD [address] [place], [place] [id number] PCP - General Internal Medicine 04/06/22 Caty Bowens MD [address] [place] [id number] Hematology/Oncology 05/29/21 Marisela Rome MD, [address] [place], [place] 35428691 Physician Radiation Oncology 05/30/21 Amelia Souza RN Specialty Physical Therapist Technician Oncology 06/04/21 Helen Roa [address] [phone] Cardiology 01/07/22 Ramiro Cheung MD [address] 342400 [place] [address] Home Care Provider Colon and Rectal Surgery 02/13/22 Leandro Cruz, RN [address] [place] [address] Foam Cutting Supervisor Post Acute Care 02/24/22 Gurjit Delcid MD [address] [place] [address] Referring Internal Medicine 03/10/22 Estefany Stern, PT [address] [place], [place] 2311831 Foam Cutting Supervisor Post Acute Care 03/11/22 Vascular Sonographer Relationship Specialty Start Date End Date Katy Faust MD [address] [place], [place] [id number] PCP - General Internal Medicine 04/06/22 Caty Bowens MD [address] [place], [place] 9361695 Hematology/Oncology 05/29/21 Marisela Rome MD, [address] [place], [place] 05314691 Physician Radiation Oncology 05/30/21 Amelia Souza, DERRICK Specialty Physical Therapist Technician Oncology 06/04/21 Helen Roa [address] [phone] Cardiology 01/07/22 Ramiro Cheung MD [address] [phone] Home Care Provider Colon and Rectal Surgery 02/13/22 Leandro Cruz, RN [address] [place], [place] 4619331 Foam Cutting Supervisor Post Acute Care 02/24/22 Gurjit eDlcid MD [address] [place] [address] Referring Internal Medicine 03/10/22 Estefany Stern, PT [address] [place] [address] Foam Cutting Supervisor Post Acute Care 03/11/22 Vascular Sonographer Relationship Specialty Start Date End Date Katy Faust MD [address] [place], [place] [id number] PCP - General Internal Medicine 04/06/22 Caty Bowens MD [address] [place], [place] 2268168 Hematology/Oncology 05/29/21 Marisela Rome MD, [address] [place], [place] 68988691 Physician Radiation Oncology 05/30/21 Amelia Souza, RN Specialty Physical Therapist Technician Oncology 06/04/21 Helen Roa [address] [address] Cardiology 01/07/22 Ramiro Cheung MD [address] [address] Home Care Provider Colon and Rectal Surgery 02/13/22 Gurjit Delcid MD [address] [place], [place] 2805395 Referring Internal Medicine 03/10/22 Estefany Stern, PT [address] [place], [place] 0535931 Foam Cutting Supervisor Post Acute Care 03/11/22 Vascular Sonographer Relationship Specialty Start Date End Date Katy Faust MD [address] [place], [place] [id number] PCP - General Internal Medicine 04/06/22 Caty Bowens MD [address] [place] [address] Hematology/Oncology 05/29/21 Marisela Rome MD, [address] [place] [address] Physician Radiation Oncology 05/30/21 Amelia Souza, RN Specialty Physical Therapist Technician Oncology 06/04/21 Helen Roa [address] [address] Cardiology 01/07/22 Ramiro Cheung MD 9500 [facility] [address] [address] Home Care Provider Colon and Rectal Surgery 02/13/22 Gurjit Delcid MD [address] [place] [address] Referring Internal Medicine 03/10/22 Estefany Stern, PT [address] [place], [place] 2928531 Foam Cutting Supervisor Post Acute Care 03/11/22 Vascular Sonographer Relationship Specialty Start Date End Date Katy Faust MD [address] [place], [place] [id number] PCP - General Internal Medicine 04/06/22 [place] [address] [place] [address] Hematology/Oncology 05/29/21 Marisela Rome MD, [address] [place], [place] 46084691 Physician Radiation Oncology 05/30/21 Amelia Souza, RN Specialty Physical Therapist Technician Oncology 06/04/21 Helen Roa [address] [address] Cardiology 01/07/22 Ramiro Cheung MD 9500 [facility] [address] [address] Home Care Provider Colon and Rectal Surgery 02/13/22 Gurjit Delcid MD [address] [place] [address] Referring Internal Medicine 03/10/22 Estefany Stern, PT [address] [place] [address] Foam Cutting Supervisor Post Acute Care 03/11/22 Vascular Sonographer Relationship Specialty Start Date End Date Katy Faust MD [address] [place], [place] [id number] PCP - General Internal Medicine 04/06/22 Caty Bowens MD [address] [place], [place] 0632995 Hematology/Oncology 05/29/21 Marisela Rome MD, [address] [place], [place] 15277691 Physician Radiation Oncology 05/30/21 Amelia Souza, DERRICK Specialty Physical Therapist Technician Oncology 06/04/21 Helen Roa [address] [address] Cardiology 01/07/22 Ramiro Cheung MD [address] [address] Home Care Provider Colon and Rectal Surgery 02/13/22 Gurjit Delcid MD [address] [place] [address] Referring Internal Medicine 03/10/22 Estefany Stern, PT [address] [place] [address] Foam Cutting Supervisor Post Acute Care 03/11/22 Vascular Sonographer Relationship Specialty Start Date End Date Katy Faust MD [address] [place], [place] [id number] PCP - General Internal Medicine 04/06/22 Caty Bowens MD [address] [place] [address] Hematology/Oncology 05/29/21 Marisela Rome MD, [address] [place] [address] Physician Radiation Oncology 05/30/21 Amelia Souza, RN Specialty Physical Therapist Technician Oncology 06/04/21 Helen Roa [address] [address] Cardiology 01/07/22 Ramiro Cheung MD [address] 8517295 Home Care Provider Colon and Rectal Surgery 02/13/22 Gurjit Delcid MD [address] [place], [place] 1096895 Referring Internal Medicine 03/10/22 Estefany Stern, PT [address] [place], [place] 6782731 Foam Cutting Supervisor Post Acute Care 03/11/22 Vascular Sonographer Relationship Specialty Start Date End Date Katy Faust MD [address] [place], [place] [id number] PCP - General Internal Medicine 04/06/22 Caty Bowens MD [address] [place] [address] Hematology/Oncology 05/29/21 Marisela Rome MD, [address] [place] [address] Physician Radiation Oncology 05/30/21 Amelia Souza, RN Specialty Physical Therapist Technician Oncology 06/04/21 Helen Roa [address] [address] Cardiology 01/07/22 Ramiro Cheung MD 9780 [facility] [address] [address] Home Care Provider Colon and Rectal Surgery 02/13/22 Gurjit Delcid MD [address] [place] [address] Referring Internal Medicine 03/10/22 Estefany Stern, PT [address] [place], [place] 5359331 Foam Cutting Supervisor Post Acute Care 03/11/22 Vascular Sonographer Relationship Specialty Start Date End Date Katy Faust MD [address] [place], [place] [id number] PCP - General Internal Medicine 04/06/22 [place] [address] [place] [address] Hematology/Oncology 05/29/21 Marisela Rome MD, [address] [place], [place] 07283691 Physician Radiation Oncology 05/30/21 Amelia Souza, RN Specialty Physical Therapist Technician Oncology 06/04/21 Helen Roa [address] [phone] Cardiology 01/07/22 Ramiro Cheung MD [address] [address] Home Care Provider Colon and Rectal Surgery 02/13/22 Gurjit Delcid MD [address] [place] [address] Referring Internal Medicine 03/10/22 Estefany Stern, PT [address] [place], [place] 4842231 Foam Cutting Supervisor Post Acute Care 03/11/22 Vascular Sonographer Relationship Specialty Start Date End Date Katy Faust MD [address] [place], [place] [id number] PCP - General Internal Medicine 04/06/22 Caty Bowens MD [address] [place], [place] 4664095 Hematology/Oncology 05/29/21 Marisela Rome MD, [address] [place], [place] 32337691 Physician Radiation Oncology 05/30/21 Amelia Souza, DERRICK Specialty Physical Therapist Technician Oncology 06/04/21 Helen Roa [address] [phone] Cardiology 01/07/22 Ramiro Cheung MD [address] [address] Home Care Provider Colon and Rectal Surgery 02/13/22 Leandro Cruz, RN [address] [place], [place] 3601431 Foam Cutting Supervisor Post Acute Care 02/24/22 04/23/22 Gurjit Delcid MD [address] [place] [address] Referring Internal Medicine 03/10/22 Estefany Stern, PT [address] [place] [address] Foam Cutting Supervisor Post Acute Care 03/11/22 Vascular Sonographer Relationship Specialty Start Date End Date Katy Faust MD [address] [place], [place] [id number] PCP - General Internal Medicine 04/06/22 Caty Bowens MD [address] [place] [address] Hematology/Oncology 05/29/21 Marisela Rome MD, [address] [place], [place] 36240691 Physician Radiation Oncology 05/30/21 Amelia Souza, RN Specialty Physical Therapist Technician Oncology 06/04/21 Helen Roa [address] [phone] Cardiology 01/07/22 Ramiro Cheung MD [address] [place] [address] Home Care Provider Colon and Rectal Surgery 02/13/22 Gurjit Delcid MD [address] [place] 5851795 Referring Internal Medicine 03/10/22 Estefany Stern, PT [address] [place], [place] 4963431 Foam Cutting Supervisor Post Acute Care 03/11/22 Vascular Sonographer Relationship Specialty Start Date End Date Katy Faust MD [address] [place], [place] [id number] PCP - General Internal Medicine 04/06/22 Caty Bowens MD 8788 [place] [address] Hematology/Oncology 05/29/21 Marisela Rome MD, [address] [place], [place] 35258691 Physician Radiation Oncology 05/30/21 Amelia Souza, RN Specialty Physical Therapist Technician Oncology 06/04/21 Helen Roa [address] [address] Cardiology 01/07/22 Ramiro Cheung MD [address] [address] Home Care Provider Colon and Rectal Surgery 02/13/22 Gurjit Delcid MD [address] [place] [address] Referring Internal Medicine 03/10/22 Estefany Stern, PT [address] [place], [place] 2429631 Foam Cutting Supervisor Post Acute Care 03/11/22 Vascular Sonographer Relationship Specialty Start Date End Date Katy Faust MD [address] [place], [place] [id number] PCP - General Internal Medicine 04/06/22 Caty Bowens MD [address] [place] [address] Hematology/Oncology 05/29/21 Marisela Rome MD, [address] [place], [place] 17358691 Physician Radiation Oncology 05/30/21 Amelia Souaz, RN Specialty Physical Therapist Technician Oncology 06/04/21 Helen Roa [address] [address] Cardiology 01/07/22 Ramiro Cheung MD 7770 [facility] [address] [address] Home Care Provider Colon and Rectal Surgery 02/13/22 Gurjit Delcid MD [address] [place] [address] Referring Internal Medicine 03/10/22 Estefany Stern, PT [address] [place] [address] Foam Cutting Supervisor Post Acute Care 03/11/22 Vascular Sonographer Relationship Specialty Start Date End Date Katy Faust MD [address] [place], [place] 349331 PCP - General Internal Medicine 04/06/22 Caty Bowens MD [address] [place], [place] 2432195 Hematology/Oncology 05/29/21 Marisela Rome MD, [address] [place], [place] 91925691 Physician Radiation Oncology 05/30/21 Amelia Souza, RN Specialty Physical Therapist Technician Oncology 06/04/21 Helen Roa [address] [address] Cardiology 01/07/22 Ramiro Cheung MD [address] 8643895 Home Care Provider Colon and Rectal Surgery 02/13/22 Gurjit Delcid MD [address] [place], [place] 4681095 Referring Internal Medicine 03/10/22 Estefany Stern, PT [address] [place] [address] Foam Cutting Supervisor Post Acute Care 03/11/22 Vascular Sonographer Relationship Specialty Start Date End Date Katy Faust MD [address] [place], [place] [id number] PCP - General Internal Medicine 04/06/22 Caty Bowens MD [address] [place] [address] Hematology/Oncology 05/29/21 Marisela Rome MD, [address] [place] [address] Physician Radiation Oncology 05/30/21 Amelia Souza, RN Specialty Physical Therapist Technician Oncology 06/04/21 Helen Roa [address] [address] Cardiology 01/07/22 Ramiro Cheung MD [address] 6296195 Home Care Provider Colon and Rectal Surgery 02/13/22 Gurjit Delcid MD [address] [place], [place] 0190195 Referring Internal Medicine 03/10/22 Estefany Stern, PT [address] [place], [place] 7114031 Foam Cutting Supervisor Post Acute Care 03/11/22 Vascular Sonographer Relationship Specialty Start Date End Date Katy Faust MD [address] [place], [place] [id number] PCP - General Internal Medicine 04/06/22 Caty Bowens MD [address] [place] [address] Hematology/Oncology 05/29/21 Marisela Rome MD, [address] [place] [address] Physician Radiation Oncology 05/30/21 Amelia Souza, RN Specialty Physical Therapist Technician Oncology 06/04/21 Helen Roa [address] [address] Cardiology 01/07/22 Ramiro Cheung MD [address] [place] [address] Home Care Provider Colon and Rectal Surgery 02/13/22 Gurjit Delcid MD [address] [place] [address] Referring Internal Medicine 03/10/22 Estefany Stern, PT [address] [place], [place] 3862731 Foam Cutting Supervisor Post Acute Care 03/11/22 Vascular Sonographer Relationship Specialty Start Date End Date Katy Faust MD [address] [place], [place] [id number] PCP - General Internal Medicine 04/06/22 Caty Bowens MD [address] [place] [address] Hematology/Oncology 05/29/21 Marisela Rome MD, [address] [place], [place] 37320691 Physician Radiation Oncology 05/30/21 Amelia Souza, RN Specialty Physical Therapist Technician Oncology 06/04/21 Helen Roa [address] [address] Cardiology 01/07/22 Ramiro Cheung MD 9500 [facility] [address] [address] Home Care Provider Colon and Rectal Surgery 02/13/22 Gurjit Delcid MD [address] [place] [address] Referring Internal Medicine 03/10/22 Estefany Stern, PT [address] [place], [place] 1799631 Foam Cutting Supervisor Post Acute Care 03/11/22 Vascular Sonographer Relationship Specialty Start Date End Date Katy Faust MD [address] [place], [place] 583421 PCP - General Internal Medicine 04/06/22 Caty Bowens MD [address] [place] [id number] Hematology/Oncology 05/29/21 Marisela Rome MD, [address] [place], [place] 57599691 Physician Radiation Oncology 05/30/21 Amelia Souza, RN Specialty Physical Therapist Technician Oncology 06/04/21 Helen oRa [address] [phone] Cardiology 01/07/22 Ramiro Cheung MD [address] [place] [address] Home Care Provider Colon and Rectal Surgery 02/13/22 [place] [address] [place], [place] 7268695 Referring Internal Medicine 03/10/22 Estefany Stern, PT [address] [place] [address] Foam Cutting Supervisor Post Acute Care 03/11/22 Vascular Sonographer Relationship Specialty Start Date End Date Katy Faust MD 174 [place] [address] PCP - General Internal Medicine 04/06/22 Caty Bowens MD [address] [place] [address] Hematology/Oncology 05/29/21 Marisela Rome MD, [address] [place], [place] 70713691 Physician Radiation Oncology 05/30/21 Amelia Souza, DERRICK Specialty Physical Therapist Technician Oncology 06/04/21 Helen Roa [address] [phone] Cardiology 01/07/22 Ramiro Cheung MD [address] [place] [phone] Home Care Provider Colon and Rectal Surgery 02/13/22 Gurjit Delcid MD [address] [place], [place] 1678995 Referring Internal Medicine 03/10/22 Estefany Stern, PT [address] [place], [place] 4236031 Foam Cutting Supervisor Post Acute Care 03/11/22 Vascular Sonographer Relationship Specialty Start Date End Date Katy Faust MD 1740 [place], [place] 818441 PCP - General Internal Medicine 04/06/22 Caty Bowens MD [address]00 [place] [address] Hematology/Oncology 05/29/21 Marisela Rome MD, [address] [place], [place] 788781 Physician Radiation Oncology 05/30/21 Amelia Souza, RN Specialty Physical Therapist Technician Oncology 06/04/21 Helen Roa [address] [phone] Cardiology 01/07/22 Ramiro Cheung MD [address] [phone] Home Care Provider Colon and Rectal Surgery 02/13/22 Gurjit Delcid MD 9500 [place], [place] [phone] Referring Internal Medicine 03/10/22 Estefany Stern, PT [address] [place] [address] Foam Cutting Supervisor Post Acute Care 03/11/22 Vascular Sonographer Relationship Specialty Start Date End Date Katy Faust MD [address]40 [place], [place] [id number] PCP - General Internal Medicine 04/06/22 Caty Bowens MD [address]00 [place] [address] Hematology/Oncology 05/29/21 Marisela Rome MD, [address] [place], [place] 20300691 Physician Radiation Oncology 05/30/21 Amelia Souza, RN Specialty Physical Therapist Technician Oncology 06/04/21 Helen Roa [address] [phone] Cardiology 01/07/22 Ramiro Cheung MD [address] [phone] Home Care Provider Colon and Rectal Surgery 02/13/22 Gurjit Delcid MD [address] [place], [place] [phone] Referring Internal Medicine 03/10/22 Estefany Stern, PT [address] [place], [place] [id number] Foam Cutting Supervisor Post Acute Care 03/11/22 Vascular Sonographer Relationship Specialty Start Date End Date Katy Faust MD [address] [place], [place] [id number] PCP - General Internal Medicine 04/06/22 Caty Bowens MD [address] [place] [id number] Hematology/Oncology 05/29/21 Marisela Rome MD, [address] [place], [place] [phone] Physician Radiation Oncology 05/30/21 Amelia Souza RN Specialty Physical Therapist Technician Oncology 06/04/21 Helen Roa [address] [phone] Cardiology 01/07/22 Ramiro Cheung MD [address] [address] Home Care Provider Colon and Rectal Surgery 02/13/22 Gurjit Delcid MD [address] [place] [address] Referring Internal Medicine 03/10/22 AnujaLeniLeigh Estefany, PT [address] [place] [address] Foam Cutting Supervisor Post Acute Care 03/11/22 10/06/22 Vascular Sonographer Relationship Specialty Start Date End Date Katy Faust MD [facility]0 [place], [place] 919771 PCP - General Internal Medicine 04/06/22 Caty Bowens MD [address] [place] [phone] Hematology/Oncology 05/29/21 Marisela Rome MD, [address] [place], [place] [phone] Physician Radiation Oncology 05/30/21 Amelia Souza, DERRICK Specialty Physical Therapist Technician Oncology 06/04/21 Helen Roa [address] [phone] Cardiology 01/07/22 [place] [address] [place] [address] Home Care Provider Colon and Rectal Surgery 02/13/22 Gurjit Delcid MD [address] [place] [address] Referring Internal Medicine 03/10/22 Vascular Sonographer Relationship Specialty Start Date End Date Katy Faust MD [address] [place] [address] PCP - General Internal Medicine 04/06/22 Caty Bowens MD [address] [place] [address] Hematology/Oncology 05/29/21 Marisela Rome MD, [address] [place] [address] Physician Radiation Oncology 05/30/21 Amelia Souza, DERRICK Specialty Physical Therapist Technician Oncology 06/04/21 Helen Roa [address] [phone] Cardiology 01/07/22 Ramiro Cheung MD [address] [address] Home Care Provider Colon and Rectal Surgery 02/13/22 Gurjit Delcid MD [address] [place] [address] Referring Internal Medicine 03/10/22 Vascular Sonographer Relationship Specialty Start Date End Date Katy Faust MD [address]40 [place] [address] PCP - General Internal Medicine 04/06/22 Caty Bowens MD [address] [place] [address] Hematology/Oncology 05/29/21 Marisela Rome MD, [address] [place] [address] Physician Radiation Oncology 05/30/21 Amelia Souza, RN Specialty Physical Therapist Technician Oncology 06/04/21 Helen Roa [address] [phone] Cardiology 01/07/22 Ramiro Cheung MD [address] 0 [place], [place] 2454495 Home Care Provider Colon and Rectal Surgery 02/13/22 Gurjit Delcid MD [address] [place], [place] [phone] Referring Internal Medicine 03/10/22 Vascular Sonographer Relationship Specialty Start Date End Date Katy Faust MD [address] [place], [place] [id number] PCP - General Internal Medicine 04/06/22 Caty Bowens MD [address] [place], [place] 3437895 Hematology/Oncology 05/29/21 Marisela Rome MD, [address] [place], [place] [phone] Physician Radiation Oncology 05/30/21 Amelia Souza, DERRICK Specialty Physical Therapist Technician Oncology 06/04/21 Helen Roa [address] [phone] Cardiology 01/07/22 Ramiro Cheung MD [address] [place], [place] 6687095 Home Care Provider Colon and Rectal Surgery 02/13/22 Gurjit Delcid MD [address] [place], [place] 5005195 Referring Internal Medicine 03/10/22 Vascular Sonographer Relationship Specialty Start Date End Date Katy Faust MD [address] [place] [address] [id number] PCP - General Internal Medicine 04/06/22 Caty Bowens MD [address] [place], [place] [phone] Hematology/Oncology 05/29/21 Marisela Rome MD, [address] [place], [place] [phone] Physician Radiation Oncology 05/30/21 Amelia Souza, RN Specialty Physical Therapist Technician Oncology 06/04/21 Helen Roa [address] [phone] Cardiology 01/07/22 Ramiro Cheung MD [address] [place], [place] 6687095 Home Care Provider Colon and Rectal Surgery 02/13/22 Gurjit Delcid MD [address] [place] [address] Referring Internal Medicine 03/10/22 Vascular Sonographer Relationship Specialty Start Date End Date Katy Faust MD 1740 [place] [address] PCP - General Internal Medicine 04/06/22 Caty Bowens MD [address]00 [place] [address] Hematology/Oncology 05/29/21 Marisela Rome MD, [address] [place] [address] Physician Radiation Oncology 05/30/21 Amelia Souza, DERRICK Specialty Physical Therapist Technician Oncology 06/04/21 Helen Roa [address] [place] [phone] Cardiology 01/07/22 [place] [address] [place], [place] 4976695 Home Care Provider Colon and Rectal Surgery 02/13/22 [place] [address] [place] [address] Referring Internal Medicine 03/10/22 Vascular Sonographer Relationship Specialty Start Date End Date Katy Faust MD 1740 [place] [address] PCP - General Internal Medicine 04/06/22 Caty Bowens MD [address]00 [place] [address] Hematology/Oncology 05/29/21 Marisela Rome MD, [address] [place] [address] Physician Radiation Oncology 05/30/21 Amelia Souza, RN Specialty Physical Therapist Technician Oncology 06/04/21 Helen Roa [address] [phone] Cardiology 01/07/22 Ramiro Cheung MD [address] [address] Home Care Provider Colon and Rectal Surgery 02/13/22 Gurjit Delcid MD [address] [place], [place] [phone] Referring Internal Medicine 03/10/22 Vascular Sonographer Relationship Specialty Start Date End Date Katy Faust MD [address]40 [place], [place] 481281 PCP - General Internal Medicine 04/06/22 Caty Bowens MD [address] [place] [address] Hematology/Oncology 05/29/21 Marisela Rome MD [address] [place] [address] Physician Radiation Oncology 05/30/21 Amelia Souza, DERRICK Specialty Physical Therapist Technician Oncology 06/04/21 Helen Roa MD [address] [address] Cardiology 01/07/22 Ramiro Cheung MD [address] [place] [address] Home Care Provider Colon and Rectal Surgery 02/13/22 Gurjit Delcid MD 9500 [place] [address] Referring Internal Medicine 03/10/22 Vascular Sonographer Relationship Specialty Start Date End Date Katy Faust MD 1740 [place] [address] PCP - General Internal Medicine 04/06/22 Caty Bowens MD 9500 [place] [address] Hematology/Oncology 05/29/21 Marisela Rome MD [address] [place] [address] Physician Radiation Oncology 05/30/21 Amelia Souza, RN Specialty Physical Therapist Technician Oncology 06/04/21 Helen Roa MD [address] 277281 Cardiology 01/07/22 Ramiro Cheung MD 9500 [place] [address] Home Care Provider Colon and Rectal Surgery 02/13/22 Gurjit Delcid MD [address] [place] [phone] Referring Internal Medicine 03/10/22 Vascular Sonographer Relationship Specialty Start Date End Date Katy Faust MD 1740 [place] [address] PCP - General Internal Medicine 04/06/22 Caty Bowens MD [address] [place] [address] Hematology/Oncology 05/29/21 Marisela Rome MD [address] [place] [place], [place] 176231 Physician Radiation Oncology 05/30/21 Amelia Souza, DERRICK Specialty Physical Therapist Technician Oncology 06/04/21 Helen Roa MD [address] [phone] Cardiology 01/07/22 [place] [address] [place], [place] 4976695 Home Care Provider Colon and Rectal Surgery 02/13/22 Gurjit Delcid MD [address] [place] [address] Referring Internal Medicine 03/10/22 Vascular Sonographer Relationship Specialty Start Date End Date Katy Faust MD 1740 [place] [address] PCP - General Internal Medicine 04/06/22 Caty Bowens MD [address] [place] [address] Hematology/Oncology 05/29/21 Marisela Rome MD [address] [place], [place] [phone] Physician Radiation Oncology 05/30/21 Amelia Souza, RN Specialty Physical Therapist Technician Oncology 06/04/21 Helen Roa MD [address] [address] Cardiology 01/07/22 Ramiro Cheung MD [address] [address] Home Care Provider Colon and Rectal Surgery 02/13/22 Gurjit Delcid MD [address] [place] [address] Referring Internal Medicine 03/10/22 Team Status: Inactive Member Role Status Dates Dr. Katy Faust MD Primary Care Provider, Referr ing Provider Active Carlos Trujillo SECONDARY TEACHER, SECONDARY TEACHER-C Attending Provider Active Team Status: Inactive Member [...] Dr. Carmen Rangel MD Emergency Provider Active Vascular Sonographer Relationship Specialty Start Date End Date Katy Faust MD [address] [place], [place] 231431 PCP - General Internal Medicine 04/06/22 Caty Bowens MD [address] [place] [address] Hematology/Oncology 05/29/21 Marisela Rome MD [address] [place], [place] 50385691 Physician Radiation Oncology 05/30/21 Amelia Souza RN Specialty Physical Therapist Technician Oncology 06/04/21 Helen Roa MD [address] [facility] [address] 022051 Cardiology 01/07/22 Ramiro Cheung MD [address] [place] 342400 [place] [address] Home Care Provider Colon and Rectal Surgery 02/13/22 Gurjit Delcid MD [address] [place] [address] Referring Internal Medicine 03/10/22 Vascular Sonographer Relationship Specialty Start Date End Date Katy Faust MD [address] [place], [place] [id number] PCP - General Internal Medicine 04/06/22 Caty Bowens MD [address] [place] [phone] Hematology/Oncology 05/29/21 Marisela Rome MD [address] [place], [place] 55143691 Physician Radiation Oncology 05/30/21 Amelia Souza, RN Specialty Physical Therapist Technician Oncology 06/04/21 Helen Roa MD [address] [address] Cardiology 01/07/22 Ramiro Cheung MD [address] [place], [place] [phone] Home Care Provider Colon and Rectal Surgery 02/13/22 Gurjit Delcid MD [address] [place] [address] Referring Internal Medicine 03/10/22 Team Status: Inactive Member Role Status Dates Dr. Katy Faust MD Primary Care Provider Active Dr. Carmen Rangel MD Attending Provider, Emergency Provider Active Vascular Sonographer Relationship Specialty Start Date End Date Katy Faust 1740 [place], [place] 098971 PCP - General Internal Medicine 07/14/23 Vascular Sonographer Relationship Specialty Start Date End Date Katy Faust MD [address]40 [place], [place] 803921 PCP - General Internal Medicine 04/06/22 Caty Bowens MD [address] [place], [place] 4459895 Hematology/Oncology 05/29/21 Marisela Rome MD [address] [place] [address] Physician Radiation Oncology 05/30/21 Amelia Souza, DERRICK Specialty Physical Therapist Technician Oncology 06/04/21 Helen Roa MD [address] 294091 Cardiology 01/07/22 [place] [address] [place] [address] Home Care Provider Colon and Rectal Surgery 02/13/22 [place] [address] [place], [place] [phone] Referring Internal Medicine 03/10/22 Sabrina Muñiz [address] [place] [address] 115 [place] [address] Colon and Rectal Surgery 07/19/23 Vascular Sonographer Relationship Specialty Start Date End Date Katy Faust MD [address]40 [place], [place] 341381 PCP - General Internal Medicine 04/06/22 Caty Bowens MD [address] [place] [address] Hematology/Oncology 05/29/21 Marisela Rome MD [address] [place] [address] Physician Radiation Oncology 05/30/21 Amelia Souza RN Specialty Physical Therapist Technician Oncology 06/04/21 Helen Roa MD [address] [phone] Cardiology 01/07/22 Ramiro Cheung MD [address] [place] [phone] Home Care Provider Colon and Rectal Surgery 02/13/22 Gurjit Delcid MD [address] [place] [address] Referring Internal Medicine 03/10/22 Sabrina Muñiz [address] [place] [address] Colon and Rectal Surgery 07/19/23 Vascular Sonographer Relationship Specialty Start Date End Date Katy Faust MD 1740 [place], [place] 599031 PCP - General Internal Medicine 04/06/22 Caty Bowens MD [address] [place] [address] Hematology/Oncology 05/29/21 Marisela Rome MD [address] [place], [place] 21252691 Physician Radiation Oncology 05/30/21 Amelia Souza, RN Specialty Physical Therapist Technician Oncology 06/04/21 Helen Roa MD [address] [address] Cardiology 01/07/22 Ramiro Cheung MD [address] [place], [place] 0494795 Home Care Provider Colon and Rectal Surgery 02/13/22 Gurjit Delcid MD [address] [place], [place] 3315095 Referring Internal Medicine 03/10/22 Sabrina Muñiz [address] [place] [address] Colon and Rectal Surgery 07/19/23 Vascular Sonographer Relationship Specialty Start Date End Date Katy Faust MD [address]40 [place], [place] 895541 PCP - General Internal Medicine 04/06/22 Caty Bowens MD [address] [place] [phone] Hematology/Oncology 05/29/21 Marisela Rome MD [address] [place], [place] 95083691 Physician Radiation Oncology 05/30/21 Amelia Souza RN Specialty Physical Therapist Technician Oncology 06/04/21 Helen Roa MD [address] [phone] Cardiology 01/07/22 Ramiro Cheung MD [address] [address] Home Care Provider Colon and Rectal Surgery 02/13/22 Gurjit Delcid MD [address] [place] [phone] Referring Internal Medicine 03/10/22 Sabrina Muñiz [address] [place] [address] Colon and Rectal Surgery 07/19/23 Vascular Sonographer Relationship Specialty Start Date End Date Katy Faust MD 1740 [place] [address] PCP - General Internal Medicine 04/06/22 Caty Bowens MD [address]00 [place] [address] Hematology/Oncology 05/29/21 Marisela Rome MD [address] [place], [place] 87051691 Physician Radiation Oncology 05/30/21 Amelia Souza RN Specialty Physical Therapist Technician Oncology 06/04/21 Helen Roa MD [address] [phone] Cardiology 01/07/22 Ramiro Cheung MD [address] [address] Home Care Provider Colon and Rectal Surgery 02/13/22 Gurjit Delcid MD [address] [place] [phone] Referring Internal Medicine 03/10/22 Sabrina Muñiz [address] [place] [address] Colon and Rectal Surgery 07/19/23 Vascular Sonographer Relationship Specialty Start Date End Date Katy Faust MD [facility]0 [place], [place] 597021 PCP - General Internal Medicine 04/06/22 Caty Bowens MD [address] [place], [place] [phone] Hematology/Oncology 05/29/21 Marisela Rome MD [address] [place], [place] 12946691 Physician Radiation Oncology 05/30/21 Amelia Souza, RN Specialty Physical Therapist Technician Oncology 06/04/21 Helen Roa MD [address] [address] Cardiology 01/07/22 Ramiro Cheung MD [address] [phone] Home Care Provider Colon and Rectal Surgery 02/13/22 Gurjit Delcid MD [address] [place] [phone] Referring Internal Medicine 03/10/22 Sabrina Muñiz [address] [place] [address] [phone] Colon and Rectal Surgery 07/19/23 Vascular Sonographer Relationship Specialty Start Date End Date Katy Faust MD [address]40 [place], [place] [id number] PCP - General Internal Medicine 04/06/22 Caty Bowens MD [address] [place], [place] [phone] Hematology/Oncology 05/29/21 Marisela Rome MD [address] [place], [place] 51300691 Physician Radiation Oncology 05/30/21 Amelia Souza, RN Specialty Physical Therapist Technician Oncology 06/04/21 Helen Roa MD [address] [phone] Cardiology 01/07/22 Ramiro Cheung MD [address] 0 [place], [place] 7497995 Home Care Provider Colon and Rectal Surgery 02/13/22 Gurjit Delcid MD [address] [place], [place] 7827895 Referring Internal Medicine 03/10/22 Sabrina Muñiz [address] [place] [address] 115 [place], [place] [phone] Colon and Rectal Surgery 07/19/23 Vascular Sonographer Relationship Specialty Start Date End Date Katy Faust MD [address]40 [place], [place] [id number] PCP - General Internal Medicine 04/06/22 Caty Bowens MD [address] [place], [place] 7836695 Hematology/Oncology 05/29/21 Marisela Rome MD [address] [place], [place] 43377691 Physician Radiation Oncology 05/30/21 Amelia Souza RN Specialty Physical Therapist Technician Oncology 06/04/21 Helen Roa MD [address] [phone] Cardiology 01/07/22 Ramiro Cheung MD [address] 0 [place] [address] Home Care Provider Colon and Rectal Surgery 02/13/22 Gurjit Delcid MD [address] [place] [address] Referring Internal Medicine 03/10/22 Sabrina Muñiz [address] [place] [address] [address] [place], [place] [phone] Colon and Rectal Surgery 07/19/23 Vascular Sonographer Relationship Specialty Start Date End Date Katy Faust MD 1740 [place], [place] 903591 PCP - General Internal Medicine 04/06/22 Caty Bowens MD [address] [place], [place] [phone] Hematology/Oncology 05/29/21 Marisela Rome MD [address] [place], [place] 480761 Physician Radiation Oncology 05/30/21 Amelia Souza, DERRICK Specialty Physical Therapist Technician Oncology 06/04/21 Helen Roa MD [address] 168931 Cardiology 01/07/22 Ramiro Cheung MD [address] [address] Home Care Provider Colon and Rectal Surgery 02/13/22 Gurjit Delcid MD [address] [place] [address] Referring Internal Medicine 03/10/22 Sabrina Muñiz [address] [place] [address] Street [address] [place], [place] [phone] Colon and Rectal Surgery 07/19/23 Vascular Sonographer Relationship Specialty Start Date End Date Katy Faust MD [address]40 [place], [place] 354281 PCP - General Internal Medicine 04/06/22 Caty Bowens MD [address] [place] [phone] Hematology/Oncology 05/29/21 Marisela Rome MD [address] [place], [place] 14117691 Physician Radiation Oncology 05/30/21 Amelia Souza, DERRICK Specialty Physical Therapist Technician Oncology 06/04/21 Helen Roa MD [address] [phone] Cardiology 01/07/22 Ramiro Cheung MD [address]00 [place] [address] Home Care Provider Colon and Rectal Surgery 02/13/22 Gurjit Delcid MD [address] [place] [phone] Referring Internal Medicine 03/10/22 Sabrina Muñiz [address] [place] [address] 115 [place] [address] Colon and Rectal Surgery 07/19/23 Vascular Sonographer Relationship Specialty Start Date End Date Katy Faust MD [address]40 [place], [place] [id number] PCP - General Internal Medicine 04/06/22 Caty Bowens MD [address] [place] [phone] Hematology/Oncology 05/29/21 Marisela Rome MD [address] [place], [place] 13638691 Physician Radiation Oncology 05/30/21 Amelia Souza RN Specialty Physical Therapist Technician Oncology 06/04/21 Helen Roa MD [address] [phone] Cardiology 01/07/22 Ramiro Cheung MD [address] [address] Home Care Provider Colon and Rectal Surgery 02/13/22 Gurjit Delcid MD [address]00 [place] [address] Referring Internal Medicine 03/10/22 Sabrina Muñiz [address] [place] [address] [phone] Colon and Rectal Surgery 07/19/23 Vascular Sonographer Relationship Specialty Start Date End Date Katy Faust MD [address]40 [place], [place] [id number] PCP - General Internal Medicine 04/06/22 Caty Bowens MD [address]00 [place] [address] Hematology/Oncology 05/29/21 Marisela Rome MD [address] [place] [address] Physician Radiation Oncology 05/30/21 Amelia Souza RN Specialty Physical Therapist Technician Oncology 06/04/21 Helen Roa MD [address] [address] Cardiology 01/07/22 Ramiro Cheung MD 9500 [facility] A30 [place] [address] Home Care Provider Colon and Rectal Surgery 02/13/22 Gurjit Delcid MD [address]00 [place] [address] Referring Internal Medicine 03/10/22 Sabrina Muñiz [address] [place] [address] Colon and Rectal Surgery 07/19/23 Vascular Sonographer Relationship Specialty Start Date End Date Katy Faust MD [address]40 [place], [place] 963921 PCP - General Internal Medicine 04/06/22 Caty Bowens MD [address]00 [place] [address] Hematology/Oncology 05/29/21 Marisela Rome MD [address] [place] [address] Physician Radiation Oncology 05/30/21 Amelia Souza, DERRICK Specialty Physical Therapist Technician Oncology 06/04/21 Helen Roa MD [address] [address] Cardiology 01/07/22 Ramiro Cheung MD 9500 [facility] [place] [phone] Home Care Provider Colon and Rectal Surgery 02/13/22 Gurjit Delcid MD [address] [place] [phone] Referring Internal Medicine 03/10/22 Sabrina Muñiz [address] [place] [address] [phone] Colon and Rectal Surgery 07/19/23 Vascular Sonographer Relationship Specialty Start Date End Date Katy Faust MD [facility] [place] [address] PCP - General Internal Medicine 04/06/22 [place] [address] [place] [address] Hematology/Oncology 05/29/21 Marisela Rome MD [address] [place] [address] Physician Radiation Oncology 05/30/21 Amelia Souza, DERRICK Specialty Physical Therapist Technician Oncology 06/04/21 Helen Roa MD [address] 419151 Cardiology 01/07/22 Ramiro Cheung MD 9500 [facility] [place] [phone] Home Care Provider Colon and Rectal Surgery 02/13/22 Gurjit Delcid MD [address] [place] [phone] Referring Internal Medicine 03/10/22 Sabrina Muñiz [address] [place] [address] [address] [place], [place] [phone] Colon and Rectal Surgery 07/19/23 Vascular Sonographer Relationship Specialty Start Date End Date Katy Faust MD 1740 [place], [place] [id number] PCP - General Internal Medicine 04/06/22 Caty Bowens MD 4746 [place] [address] Hematology/Oncology 05/29/21 Marisela Rome MD [address] [place], [place] 10834691 Physician Radiation Oncology 05/30/21 Amelia Souza, RN Specialty Physical Therapist Technician Oncology 06/04/21 Helen Roa MD [address] [phone] Cardiology 01/07/22 Ramiro Cheung MD [address] [place] [phone] Home Care Provider Colon and Rectal Surgery 02/13/22 Gurjit Delcid MD 3661 [place] [address] Referring Internal Medicine 03/10/22 Sabrina Muñiz [address] [place] [address] Colon and Rectal Surgery 07/19/23 Vascular Sonographer Relationship Specialty Start Date End Date Katy Faust MD 1740 [place] [address] PCP - General Internal Medicine 04/06/22 Caty Bowens MD [address] [place], [place] 8279195 Hematology/Oncology 05/29/21 Marisela Rome MD [address] [place] [address] Physician Radiation Oncology 05/30/21 Amelia Souza, DERRICK Specialty Physical Therapist Technician Oncology 06/04/21 Helen Roa MD [address] [place], [place] 081551 Cardiology 01/07/22 Ramiro Cheung MD [address] [place], [place] 2944895 Home Care Provider Colon and Rectal Surgery 02/13/22 Gurjit Delcid MD [address] [place], [place] [phone] Referring Internal Medicine 03/10/22 Sabrina Muñiz [address] [place] [address] Colon and Rectal Surgery 07/19/23 Vascular Sonographer Relationship Specialty Start Date End Date Katy Faust MD 1740 [place], [place] 976881 PCP - General Internal Medicine 04/06/22 [place] [address] [place] [address] Hematology/Oncology 05/29/21 Marisela Rome MD [address] [place], [place] [phone] Physician Radiation Oncology 05/30/21 Amelia Souza, DERRICK Specialty Physical Therapist Technician Oncology 06/04/21 Helen Roa MD [address] [phone] Cardiology 01/07/22 Ramiro Cheung MD [address] [place] [address] Home Care Provider Colon and Rectal Surgery 02/13/22 Gurjit Delcid MD [address] [place] [address] Referring Internal Medicine 03/10/22 Sabrina Muñiz [address] [place] [address] [phone] Colon and Rectal Surgery 07/19/23 Vascular Sonographer Relationship Specialty Start Date End Date Katy Faust MD [facility]0 [place], [place] [id number] PCP - General Internal Medicine 04/06/22 [place] [address] [place] [address] Hematology/Oncology 05/29/21 Marisela Rome MD [address] [place], [place] [id number] Physician Radiation Oncology 05/30/21 Amelia Souza, RN Specialty Physical Therapist Technician Oncology 06/04/21 Helen Roa MD [address] [id number] Cardiology 01/07/22 [place] [address] [place] [address] Home Care Provider Colon and Rectal Surgery 02/13/22 Gurjit Delcid MD [address] [place], [place] [phone] Referring Internal Medicine 03/10/22 Sabrina Muñiz [address] [place] [address] 115 [place], [place] [id number] Colon and Rectal Surgery 07/19/23 Srinivasan Da Silva, MAIL ROOM CLERK.SPECIAL EVENTS COORDINATOR [address]40 [place] [address] Trim Setter Internal Medicine 02/07/24 Norm Parker, MAIL ROOM CLERK.SOYBEAN GROWER [address]40 [place], [place] [id number] Trim Setter Internal Medicine 02/07/24 Vascular Sonographer Relationship Specialty Start Date End Date Katy Faust MD [address]40 [place] [address] PCP - General Internal Medicine 04/06/22 Caty Bowens MD [address] [place] [address] Hematology/Oncology 05/29/21 Marisela Rome MD [address] [place], [place] 150671 Physician Radiation Oncology 05/30/21 Amelia Souza, DERRICK Specialty Physical Therapist Technician Oncology 06/04/21 Helen Roa MD [address] [id number] Cardiology 01/07/22 Ramiro Cheung MD [address] [phone] Home Care Provider Colon and Rectal Surgery 02/13/22 Gurjit Delcid MD [address] [place] [address] [id number] Referring Internal Medicine 03/10/22 Sabrina Muñiz [address] [place] [address] Colon and Rectal Surgery 07/19/23 Srinivasan Da Silva, MAIL ROOM CLERK.SPECIAL EVENTS COORDINATOR [address] [place] [address] [id number] Trim Setter Internal Medicine 02/07/24 Norm Parker, MAIL ROOM CLERK.SOYBEAN GROWER [address] [place] [address] [id number] Trim Setter Internal Medicine 02/07/24 Vascular Sonographer Relationship Specialty Start Date End Date Katy Faust MD [address] [place] [address] [id number] PCP - General Internal Medicine 04/06/22 Caty Bowens MD [address] [place], [place] [id number] Hematology/Oncology 05/29/21 Marisela Rome MD [address] [place], [place] [phone] Physician Radiation Oncology 05/30/21 Amelia Souza, DERRICK Specialty Physical Therapist Technician Oncology 06/04/21 Helen Roa MD [address] [id number] Cardiology 01/07/22 Ramiro Cheung MD [address] [place] [address] Home Care Provider Colon and Rectal Surgery 02/13/22 Gurjit Delcid MD [address]00 [place] [address] Referring Internal Medicine 03/10/22 Sabrina Muñiz [address] [place] [address] [id number] Colon and Rectal Surgery 07/19/23 Srinivasan Da Silva, NAVNEET.SPECIAL EVENTS COORDINATOR [address] [place], [place] [phone] Trim Setter Internal Medicine 02/07/24 Norm Parker MAIL ROOM CLERK.SOYBEAN GROWER [address] [place], [place] [phone] Trim Setter Internal Medicine 02/07/24 Vascular Sonographer Relationship Specialty Start Date End Date Katy Faust MD [address] [place], [place] 829261 PCP - General Internal Medicine 04/06/22 Caty Bowens MD [address] [place] [id number] Hematology/Oncology 05/29/21 Marisela Rome MD [address] [place], [place] [phone] Physician Radiation Oncology 05/30/21 Amelia Souza RN Specialty Physical Therapist Technician Oncology 06/04/21 Helen Roa MD [address] [id number] Cardiology 01/07/22 Ramiro Cheung MD [address] [place] [phone] Home Care Provider Colon and Rectal Surgery 02/13/22 Gurjit Delcid MD [address]00 [place] [address] Referring Internal Medicine 03/10/22 Sabrina Muñiz [address] [place] [address] Colon and Rectal Surgery 07/19/23 Srinivasan Da Silva APRN.SPECIAL EVENTS COORDINATOR [address] [place] [address] Trim Setter Internal Medicine 02/07/24 Norm Parker APRN.SOYBEAN GROWER [address] [place] [address] Trim Setter Internal Medicine 05/23/24 Vascular Sonographer Relationship Specialty Start Date End Date Katy Faust MD [address]40 [place] [address] PCP - General Internal Medicine 04/06/22 Caty Bowens MD [address] [place] [id number] Hematology/Oncology 05/29/21 Marisela Rome MD [address] [place], [place] 974441 Physician Radiation Oncology 05/30/21 Amelia Souza RN Specialty Physical Therapist Technician Oncology 06/04/21 Helen Roa MD [address] [address] Cardiology 01/07/22 Ramiro Cheung MD [address] [place] [address] Home Care Provider Colon and Rectal Surgery 02/13/22 Gurjit Delcid MD [address] [place] [address] Referring Internal Medicine 03/10/22 Sabrina Muñiz [address] [place] [address] [address] [place] [address] Colon and Rectal Surgery 07/19/23 Srinivasan Da Silva APRN.SPECIAL EVENTS COORDINATOR [address] [place], [place] [id number] Trim Setter Internal Medicine 02/07/24 Norm Parker APRN.SOYBEAN GROWER [address] [place] [address] Trim Setter Internal Medicine 05/23/24 Vascular Sonographer Relationship Specialty Start Date End Date Katy Faust MD [address]40 [place] [address] PCP - General Internal Medicine 04/06/22 Caty Bowens MD [address] [place] [id number] Hematology/Oncology 05/29/21 Marisela Rome MD [address] [place] [address] Physician Radiation Oncology 05/30/21 Amelia Souza, RN Specialty Physical Therapist Technician Oncology 06/04/21 Helen Roa MD [address] [id number] Cardiology 01/07/22 Ramiro Cheung MD [address] [address] Home Care Provider Colon and Rectal Surgery 02/13/22 Gurjit Delcid MD [address] [place] [address] Referring Internal Medicine 03/10/22 Sabrina Muñiz [address] [place] [address] 115 [place] [address] Colon and Rectal Surgery 07/19/23 Srinivasan Da Silva APRN.SPECIAL EVENTS COORDINATOR [address] [place] [address] Trim Setter Internal Medicine 02/07/24 Norm Parker APRN.SOYBEAN GROWER [address] [place] [address] Trim Setter Internal Medicine 05/23/24 Vascular Sonographer Relationship Specialty Start Date End Date Katy Faust MD [address] [place], [place] 787451 PCP - General Internal Medicine 04/06/22 Caty Bowens MD [address] [place] [address] Hematology/Oncology 05/29/21 Marisela Rome MD [address] [place], [place] 156931 Physician Radiation Oncology 05/30/21 Amelia Souza, DERRICK Specialty Physical Therapist Technician Oncology 06/04/21 Helen Roa MD [address] [id number] Cardiology 01/07/22 Ramiro Cheung MD [address]00 [facility] [address] [place] [address] Home Care Provider Colon and Rectal Surgery 02/13/22 Gurjit Delcid MD [address] [place] [address] Referring Internal Medicine 03/10/22 Sabrina Muñiz [address] [place] [address] Colon and Rectal Surgery 07/19/23 Srinivasan Da Silva, MAIL ROOM CLERK.SPECIAL EVENTS COORDINATOR [address] [place] [address] Trim Setter Internal Medicine 02/07/24 Norm Parker MAIL ROOM CLERK.SOYBEAN GROWER [address] [place], [place] [id number] Trim Setter Internal Medicine 05/23/24 Vascular Sonographer Relationship Specialty Start Date End Date Katy Faust MD [address] [place], [place] 178541 PCP - General Internal Medicine 04/06/22 Caty Bowens MD [address] [place] [phone] Hematology/Oncology 05/29/21 Marisela Rome MD [address] [place], [place] [phone] Physician Radiation Oncology 05/30/21 Amelia Souza, RN Specialty Physical Therapist Technician Oncology 06/04/21 Helen Roa MD [address] [place] [address] 126861 Cardiology 01/07/22 Ramiro Cheung MD [address] [address] Home Care Provider Colon and Rectal Surgery 02/13/22 Gurjit Delcid MD [address] [place] [address] Referring Internal Medicine 03/10/22 Sabrina Muñiz 95 [facility] [address] [place] [address] Colon and Rectal Surgery 07/19/23 Srinivasan Da Silva APRN.SPECIAL EVENTS COORDINATOR [address] [place], [place] 924021 Trim Setter Internal Medicine 02/07/24 Norm Parker MAIL ROOM CLERK.SOYBEAN GROWER [address] [place], [place] [id number] Trim Setter Internal Medicine 05/23/24 Vascular Sonographer Relationship Specialty Start Date End Date Katy Faust MD [address] [place], [place] [id number] PCP - General Internal Medicine 04/06/22 Caty Bowens MD [address] [place], [place] [phone] Hematology/Oncology 05/29/21 Marisela Rome MD [address] [place], [place] [id number] Physician Radiation Oncology 05/30/21 Amelia Souza, DERRICK Specialty Physical Therapist Technician Oncology 06/04/21 Helen Roa MD [address] [place] [address] [phone] Cardiology 01/07/22 Ramiro Cheung MD [address] [place] [address] Home Care Provider Colon and Rectal Surgery 02/13/22 [place] [address] [place] [address] [phone] Referring Internal Medicine 03/10/22 Sabrina Muñiz [address] [place] [address] [address] [place] [address] Colon and Rectal Surgery 07/19/23 Norm Parker, MAIL ROOM CLERK.SOYBEAN GROWER [address] [place] [address] Trim Setter Internal Medicine 05/23/24 Srinivasan Da Silva, MAIL ROOM CLERK.SPECIAL EVENTS COORDINATOR [address] [place] [address] Trim Setter Internal Medicine 07/19/24 Team Status: Active Member [...] Provider Active S tart: August 01, 2024 Vascular Sonographer Relationship Specialty Start Date End Date Katy Faust MD [address] [place], [place] [id number] PCP - General Internal Medicine 04/06/22 Caty Bowens MD [address] [place] [address] Hematology/Oncology 05/29/21 Marisela Rome MD [address] [place], [place] [phone] Physician Radiation Oncology 05/30/21 Amelia Souza RN Specialty Physical Therapist Technician Oncology 06/04/21 Helen Roa MD [address] [id number] Cardiology 01/07/22 Ramiro Cheung MD [address] [place] [address] Home Care Provider Colon and Rectal Surgery 02/13/22 Gurjit Delcid MD [address] [place] [address] Referring Internal Medicine 03/10/22 Sabrina Muñiz [address] [place] [address] [address] [place], [place] [id number] Colon and Rectal Surgery 07/19/23 Norm Parker, MAIL ROOM CLERK.SOYBEAN GROWER [address] [place], [place] [id number] Trim Setter Internal Medicine 05/23/24 Srinivasan Da Silva APRN.SPECIAL EVENTS COORDINATOR [address] [place], [place] [phone] Trim Setter Internal Medicine 07/19/24 Vascular Sonographer Relationship Specialty Start Date End Date Katy Faust MD [address] [place], [place] [id number] PCP - General Internal Medicine 04/06/22 Caty Bowens MD [address] [place] [address] Hematology/Oncology 05/29/21 Marisela Rome MD [address] [place], [place] 497341 Physician Radiation Oncology 05/30/21 Amelia Souza, DERRICK Specialty Physical Therapist Technician Oncology 06/04/21 Helen Roa MD [address] 127161 Cardiology 01/07/22 Ramiro hCeung MD 9500 [facility] [address] [place] [address] Home Care Provider Colon and Rectal Surgery 02/13/22 Gurjit Delcid MD [address] [place] [address] Referring Internal Medicine 03/10/22 Sabrina Muñiz [address] [place] [address] 115 [place] [address] Colon and Rectal Surgery 07/19/23 Norm Parker, MAIL ROOM CLERK.SOYBEAN GROWER [address] [place] [address] Trim Setter Internal Medicine 05/23/24 Srinivasan Da Silva, MAIL ROOM CLERK.SPECIAL EVENTS COORDINATOR [address] [place] [address] Trim Setter Internal Medicine 07/19/24 Team Status: Active Member [...] Inactive Member Role/Relationship Status Dates Dr. Katy Fauts MD Primary Care Provider Active Start: September [...] October 10, 2024 End: October 10, 2024 Vascular Sonographer Relationship Specialty Start Date End Date Katy Faust MD [address] [place] [address] PCP - General Internal Medicine 04/06/22 Caty Bowens MD [address] [place], [place] [phone] Hematology/Oncology 05/29/21 Marisela Rome MD [address] [place], [place] 006961 Physician Radiation Oncology 05/30/21 Amelia Souza RN Specialty Physical Therapist Technician Oncology 06/04/21 Helen Roa MD [address] [id number] Cardiology 01/07/22 Ramiro Cheung MD [address] [address] Home Care Provider Colon and Rectal Surgery 02/13/22 Sabrina Muñiz [address] [place] [address] Colon and Rectal Surgery 07/19/23 Norm Parker, NAVNEET.SOYBEAN GROWER [address] [place] [address] Trim Setter Internal Medicine 05/23/24 Srinivasan Da Silva, NAVNEET.SPECIAL EVENTS COORDINATOR [address] [place] [address] Trim Setter Internal Medicine 07/19/24 Vascular Sonographer Relationship Specialty Start Date End Date Katy Faust MD [address] [place], [place] 000781 PCP - General Internal Medicine 04/06/22 Caty Bowens MD [address] [place] [address] Hematology/Oncology 05/29/21 Marisela Rome MD [address] [place], [place] 366481 Physician Radiation Oncology 05/30/21 Amelia Souza, RN Specialty Physical Therapist Technician Oncology 06/04/21 Helen Roa MD [address] [address] Cardiology 01/07/22 Ramiro Cheung MD [address] [place] [phone] Home Care Provider Colon and Rectal Surgery 02/13/22 Gurjit Delcid MD [address] [place] [phone] Referring Internal Medicine 03/10/22 08/23/24 Sabrina Muñiz [address] [place] [address] [address] [place] [address] Colon and Rectal Surgery 07/19/23 Norm Parker, MAIL ROOM CLERK.SOYBEAN GROWER [address] [place], [place] 824191 Trim Setter Internal Medicine 05/23/24 Srinivasan Da Silva, MAIL ROOM CLERK.SPECIAL EVENTS COORDINATOR [address] [place], [place] [id number] Trim Setter Internal Medicine 07/19/24 Team Status: Active Member [...] 2024 End: November 29, 2024 Carlos Trujillo SECONDARY TEACHER, SECONDARY TEACHER-C Attending physician Active Start: November 29, 2024 [...] BE BASED ON THE PRIMARY CLINICAL RECORDS. [facility]. provides no warranty or guarantee of the accuracy or completeness of information in this document.
--- OUTSIDE RECORDS SUMMARY | 2025-01-07 18:35 | XMS RPT_ITS | CCD ---
Author Organization [facility] Care Team Providers Care Wash Crew Person Name Role Phone None, No PCP Unavailable Unavailable Unavailable Unavailable Pcp, No Primary Care Provider Unavailabl e Caty Bowens MD Unavailable [phone] Wild VARGAS MD, Marisela Unavailable Libby MEZA, [...] Care Provider Dr. Toro Diehl Attending Provider [facility] BOX COVERER HAND, BOX COVERER HAND-C Carlos Linda Attending Provider Anthony RN, Leandro Unavailable Libby RN, Amelia Unavailable Unavailable Leena PT, Estefany Unavailable JUSTIN WILLIAM Attending Unavailable JUSTIN WILLIAM Admitting Unavailable KATY FAUST Primary Care Unavailable Unavailable Primary Care Provider Unavailsawyer Rome MD, Marisela Unavailable Crispin VARGAS, Helen Zaidi Unavailable Dr. Katy Faust Primary Care Provider Dr. Katy Faust Referring Provider Ronnie BOX COVERER HAND, BOX COVERER HAND-C Carlos Linda Attending Provider Dr. Raghu Reynolds Attending Provider Dr. Raghu Reynolds Referring Provider Katy Faust MD Primary Care Provider Katy Faust Primary Care Provider SABRINA MUÑIZ Attending Unavailable KATY FAUST Primary Care Unavailable Sabrina Muñiz Unavailable Farhana VARGAS, Max Unavailable GISELA GENAO Referring Unavailab le Da Silva ANALYTICS INTERN.ENGINEERING RESEARCH MANAGER, Srinivasan Unavailable Elena ANALYTICS INTERN.CUP MACHINE OPERATOR, Norm Unavailable GISELA GENAO Referring Unavailab le Elena ANALYTICS INTERN.CUP MACHINE OPERATOR, Norm Unavailable Da Silva ANALYTICS INTERN.ENGINEERING RESEARCH MANAGER, Srinivasan Unavailable Dr. Katy Faust MD Primary [...] Dr. Katy Kwan Primary Care Provider [phone] Inna VARGAS, Dr. Katy Kwan Referring Provider Artur VARGAS, Dr. Lawrence Attending Provider Inna VARGAS, Dr. Katy Kwan Primary Care Provider [phone] Anirudh VARGAS, Dr. Voss Attending Provider [phone] [...] Gail VARGAS, Dr. Krishnamurthy Attending Physician Ronnie BOX COVERER HAND-Carlos Shell Attending Physician NORM PARKER Attending Unavailable [...] Attending Unavailable Amato, Naty Referring Unavailable Talampas, Kayt D Primary Care Unavailable Raghu Reynolds Attending [...] Attending Unavailable Siddiqui, Howard Admitting Unavailable Siddiqui, Howrad Referring Unavailable Talampas, Katy D Primary Care Unavailable Raghu Chew Consulting Unavailable Marylou Rome Consulting Unavailable Marylou Rome Attending Unavailable Talampas, Katy D Primary Care Unavailable Amato, Naty Referring Unavailable Amato, Naty Attending Unavailable Siddiqui, Howard Attending Unavailable Talampas, Katy D Referring Unavailable Talampas, Katy D Primary Care Unavailable Talampas, Katy D Primary Care Unavailable Anirudh, [place] Attending Unavailable Siddiqui, Howard Attending Unavailable Talampas, Katy D Referring Unavailable Talampas, Katy D Primary Care Unavailable Siddiqui, Howard Attending Unavailable Talampas, Katy D Referring Unavailable Talampas, Katy D Primary Care Unavailable Siddiqui, Howard Attending Unavailable Talampas, Katy D Referring Unavailable Talampas, Katy D Primary Care Unavailable Anirudh, [place] Attending Unavailable Talampas, Katy D Primary Care Unavailable Siddiqui, Howard Attending Unavailable Talampas, Katy D Referring Unavailable Talampas, Katy D Primary Care Unavailable Anirudh, [place] Attending Unavailable Talampas, Katy D Primary Care Unavailable Amato, Naty Attending Unavailable Amato, Naty Referring Unavailable Talampas, Katy D Primary Care Unavailable Allergies Allergy Classification Reported Allergen(s) Allergy Type Date of Onset Reaction(s) Facility Lincosamides (antibiotic) (3 sources) Clindamycin Drug Allergy 2 GI Upset [facility] Opioid Agonists (4 sources) Codeine; Translations: [codeine] Drug Allergy 8 GI Upset [facility] (20 sources) Codeine; Translations: [codeine] Drug Allergy 8 GI Upset, Other [facility] Work Phone: Comment on above: Sharp pain in stomac h (20 sources) Clindamycin; Translations: [CLINDAMYCIN] Drug Allergy 2 GI Upset, Other [facility] (20 sources) cat dander; Translations: [CAT DANDER] Propensity to adverse reactions 2 Other: See Comments [facility] (1 source) ALLERGIES NOT ON FILE; Translations: [ALLERGIES NOT ON FILE] Propensity to adverse reactions (disorder) [facility] (1 source) Clindamycin Drug Allergy 5 [facility] Repository (1 source) Codeine Drug Allergy 5 [facility] Rep[facility] Medications Current Medications Medication Drug [...] Comment on above: Take 1 capsule by [facility] four times daily for 5 days. cholecalciferol [...] tablet d aily. Take 1 capsule by [facility] two times a week. ciprofloxacin 250 mg oral tablet (2 sources) Quinolone Antimicrobial Start: 07-11-19 End: 07-18-19 take 1 tablet by mouth twice daily ciprofloxacin HCl (CIPRO) 250 mg tablet Take 1 tablet by mouth twice daily for 7 days. 14 tablet 0 07/10/2021 07/17/2021 Active Comment on above: Take [address] [facility] twice daily for 7 days. enteric [...] th daily at bedtime. For cholesterol per [facility]. bifidobacterium animalis [id number] unt / lactobacillus acidophilus [id number] unt oral capsule (2 sources) Start: 02-25-20 [...] Active docusate sodium 50 mg / sennosides, long-term 8.6 mg oral tablet (5 sources) Start: [...] mouth at 11pm the night before surgery. Spencer-3 350 MG Oral Capsule Delayed Release (2 sources) Start: 02-24-2017 Spencer-3 350 MG Oral Capsule Delayed Release Quantity: [...] March 04, 2018 4:37pm polyethylene glycol 3350 00809 mg powder for oral solution (20 sources) Osmotic Laxative Start: 01-06-2022 End: 01-07-2022 polyethylene glycol 3350 (MIRALAX, GLYCOLAX) 17 gram/dose powder Use as directed for Miralax / Gatorade Bowel Prep Kit 238 g 0 01/06/2022 01/07/2022 End: 01-28-2022 polyethylene glycol 3350 (HI RALAX, GLYCOLAX) 17 gram packet Take 17 [...] Gatorade Bowel Prep Kit polyethylene glycol 3350 611678 mg / potassium chloride 2970 mg / sodium bicarbonate 6740 mg / sodium chloride 5860 mg / sodium sulfate 02394 mg powder for oral solution (11 sources) [...] above: Take 1 capsule by mo [facility] once daily. 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, [address] Calcium [Mass/Vol] 8.4 mg/dL Normal 7.6-11.0 [facility] Comment on above: Performed By: #### L 500.2500, L100.0100 #### [facility] [address] [place], [address] Chloride [Moles/Vol] 104 mmol/L Normal 98-108 [facility] Comment on above: Performed By: #### L 500.2500, L100.0100 #### [facility] [address] [place], [address] CO2 [Moles/Vol] 21.5 mmol/L Normal 21.0-32.0 [facility] Comment on above: Performed By: #### L 500.2500, L100.0100 #### [facility] [address] [place], [address] Creatinine [Mass/Vol] 1.14 mg/dL Normal 0.70-1.20 [facility] Comment on above: Performed By: #### L 500.2500, L100.0100 #### [facility] [address] [place], [address] ECRCL 59.08 ml/min Normal 50-250 [facility] Comment on above: Performed By: #### L 500.2500, L100.0100 #### [facility] [address] [place], [address] GAP 12 Normal 5-15 [facility] Comment on above: Performed By: #### L 500.2500, L100.0100 #### [facility] [address] [place], [address] GFR/1.73 sq M.predicted among non-blacks MDRD (S/P/Bld) [Vol rate/Area] 67 mL/min/{1.73_m2} Normal >60 [facility] Comment on above: Result Comment: mL/m in/1.73m2 CKD-EPI Creatinine Equation (2020) Performed By: #### L 500.2500, L100.0100 #### [facility] [address] [place], [address] Glucose [Mass/Vol] 170 mg/dL High 70-99 [facility] Comment on above: Performed By: #### L 500.2500, L100.0100 #### [facility] [address] [place], [address] Potassium [Moles/Vol] 4.1 mmol/L Normal 3.3-5.1 [facility] Comment on above: Performed By: #### L 500.2500, L100.0100 #### [facility] [address] [place], [address] Sodium [Moles/Vol] 138 mmol/L Normal 133-145 [facility] Comment on above: Performed By: #### L 500.2500, L100.0100 #### [facility] [address] [place], [address] Urea nitrogen [Mass/Vol] 14 mg/dL Normal 4-19 [facility] Comment on above: Performed By: #### L 500.2500, L100.0100 #### [facility] [address] [place], [address] CBC W/Diff, Automatedon 11-0 -2024 Absolute Lymph 0.87 X10 3/uL Normal 0.83-4.51 [facility] Comment on above: Performed By: #### L 500.2500, L100.0100 #### [facility] [address] [place], [address] Absolute Neut 11.0 X10 3/uL High 2.0-7.7 [facility] Comment on above: Performed By: #### L 500.2500, L100.0100 #### [facility] [address] [place], [address] Basophils/100 WBC (Bld) 0.2 % Normal 0-[address] [facility] Comment on above: Performed By: #### L 500.2500, L100.0100 #### [facility] [address] [place], [address] Eosinophils/100 WBC (Bld) 0.0 % Normal 0-5 [facility] Comment on above: Performed By: #### L 500.2500, L100.0100 #### [facility] [address] [place], [address] Erythrocyte distribution width (RBC) [Ratio] 14.2 % Normal 11.6-14.6 [facility] Comment on above: Performed By: #### L 500.2500, L100.0100 #### [facility] [address] [place], [address] Hematocrit (Bld) [Volume fraction] 37.2 % Low 40-54 [facility] Comment on above: Performed By: #### L 500.2500, L100.0100 #### [facility] [address] [place], [address] Hemoglobin (Bld) [Mass/Vol] 12.3 g/dL Low 13.0-16.5 [facility] Comment on above: Performed By: #### L 500.2500, L100.0100 #### [facility] [address] [place], [address] IG% 0.500 Normal 0.0-0.9 [facility] Comment on above: Result Comment: IG% - Immature Granulocytes (promyelocytes, myelocytes and metamyelocytes) > 1% indicates that a LEFT SHIFT is Present. Performed By: #### L 500.2500, L100.0100 #### [facility] [address] [place], [address] Lymphocytes/100 WBC (Bld) 6.8 % Low 19-41 [facility] Comment on above: Performed By: #### L 500.2500, L100.0100 #### [facility] [address] [place], [address] MCH (RBC) [Entitic mass] 31.3 pg Normal 27.0-32.0 [facility] Comment on above: Performed By: #### L 500.2500, L100.0100 #### [facility] [address] [place], [address] MCHC (RBC) [Mass/Vol] 33.1 g/dL Normal 32-36 [facility] Comment on above: Performed By: #### L 500.2500, L100.0100 #### [facility] [address] [place], [address] MCV (RBC) [Entitic vol] 94.7 fL High 80-[address] [facility] Comment on above: Performed By: #### L 500.2500, L100.0100 #### [facility] [address] [place], [address] Monocytes/100 WBC (Bld) 7.4 % Normal 0-[address] [facility] Comment on above: Performed By: #### L 500.2500, L100.0100 #### [facility] [address] [place], [address] Neutrophils/100 WBC (Bld) 85.1 % High 47-70 [facility] Comment on above: Performed By: #### L 500.2500, L100.0100 #### [facility] [address] [place], [address] Nucleated RBC (Bld) [#/Vol] 0 10*3/uL Normal 0-5 [facility] Comment on above: Performed By: #### L 500.2500, L100.0100 #### [facility] [address] [place], [address] Platelet mean volume (Bld) [Entitic vol] 10.6 fL Normal 6.2-12.0 [facility] Comment on above: Performed By: #### L 500.2500, L100.0100 #### [facility] [address] [place], [address] Platelets (Bld) [#/Vol] 203 10*3/uL Normal 150-450 [facility] Comment on above: Performed By: #### L 500.2500, L100.0100 #### [facility] [address] [place], [address] RBC (Bld) [#/Vol] 3.93 10*6/uL Low 4.6-6.2 [facility] Comment on above: Performed By: #### L 500.2500, L100.0100 #### [facility] [address] [place], [address] RDW SD 49.3 fl High 35.1-43.9 [facility] Comment on above: Performed By: #### L 500.2500, L100.0100 #### [facility] [address] [place], [address] WBC (Bld) [#/Vol] 12.9 10*3/uL High 4.4-11.0 [facility] Comment on above: Performed By: #### L 500.2500, L100.0100 #### [facility] [address] [place], [address] Discharge Instructionon 11-0 Discharge Instruction [facility] Medical Records Department [address] [place] [address] Instructions for Home/Discharge Instructions 01/03/25 1313 MR#: [id number] Acct: [id number] Name: JAI LUNA Rep #: [id number] : 1950 74 From: Zaira CAMACHO PCP: [...] MD; Dr. Cherelle Christian MD Signed Normal [facility] Bedside Glucoseon 01-02-2025 FINGERSTICK GLU 69 mg/dL Low 74-106 [facility] Comment on above: Result Comment: ZENA FAUST OF PATIENT CARE PER NURSING PROTOCOL Performed By: #### L 501.080 #### [facility] [address] [place], [address] Consultation - Hospitaliston 01-02-2025 Consultation - Hospitalist [facility] Medical Records Department [address] [place] [address] Consultation - Hospitalist 01/02/25 1835 MR#: [id number] Acct: [id number] Name: JAI LUNA Rep #: [id number] : 1950 74 From: Ahsan Younger DO PCP: Dr. Katy Faust MD Status:ADM RUDDY [facility] Plan Assessment/Plan (1) Spinal stenosis of lumbar region with neurogenic claudication: PLAN: Plan Patient is a 74-year-old male who presented to [facility] on 01/02/25 for planned L3- 5 [...] vascular disease, hypertension, hyperlipidemia ??? Follows with [place] [facility]. History of CABG in 1999 and [...] is a 74 M who presented to [facility] on 01/02/2025 for planned orthopedic procedure. [...] He denies any other acute concerns currently. [facility] Medical History Leg cramps Obesity (BMI [...] 12/22/16) Essential hypertension 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 pectoris Hypoacusis Dyslipidemia [...] Carotid artery stenosis Surgical History ... Normal [facility] Lumbar Spine 2 or 3 Viewson 01-02-2025 Lumbar Spine 2 or 3 Views [facility] Imaging Services [address] [place] [address] [id number] Lumbar Spine 2 or 3 Views MR#: [id number] Acct: [id number] Name: JAI LUNA Rep #: [id number] : 1950 M 74 From: Armand Miller MD PCP: Dr. Katy Faust MD Status: ADM RUDDY Study: Lumbar Spine 2 or 3 Views Date of Exam: Exam# [id number] Ordering Dr: Howard Siddiqui MD EXAM: XR [...] operative note for further details. Reading Location: [facility]- CC: Dr. Howard Siddiqui MD; Dr. Katy Faust MD Manager Metal: Signed [facility] MR/POSTOP.ANEon 01-02-2025 MR/POSTOP.[facility] Medical Records Department [address] [place] [address] Anesthesia Postop Eval I 01/02/25 1457 MR#: [id number] Acct: [id number] Name: JAI LUNA Rep #: [id number] : 1950 74 From: Michael Kat CRNA PCP: Dr. Katy Faust MD Status:REG SDC Y Race: C Location: [place] [address] Anesthesia: Postop Eval I Current Vital Signs [...] Kat CRNA Cosigner Signature: Date CC: Signed [facility] MR/[id number] 01-02-2025 MR/POSTOPAN2 [facility] Medical Records Department [address] [place] [address] Anesthesia Postop Eval II 01/02/25 1556 MR#: [id number] Acct: [id number] Name: JAI LUNA Rep #: [id number] : 1950 74 From: Nehal Villagran HEAT TREATER HEAD PCP: Dr. Katy Faust MD Status:REG SDC Y Race: C Location: [place] [address] Anesthesia Postop Eval I Sum Postop Eval Completion status Anesthesia document: Postop Eval 1 completed: Yes Anesthesia Postop Eval I Summary Anesthesia Postop Eval I Summary: Anesthesia Postop Eval I: Assessment Summary Airway patent Yes 01/02/25 14:58 HEAT TREATER HEAD.PKEL Spontaneous unlabored Yes 01/02/25 14:58 HEAT TREATER HEAD.PKEL respirations Mental status Awake,Calm 01/02/25 14:58 HEAT TREATER HEAD.PKEL nausea No 01/02/25 14:58 HEAT TREATER HEAD.PKEL Vomiting No 01/02/25 14:58 HEAT TREATER HEAD.PKEL Anesthesia Postop Eval I: Fluid Summary Crystalloid volume administer 1,700 01/02/25 14:58 HEAT TREATER HEAD.PKEL (ml) Colloids volume administered ( ml) Blood Product volume administered (ml) Total IV fluid infused 1,700 01/02/25 14:58 HEAT TREATER HEAD.PKEL Anesthesia Postop Eval I: Summary Notes Anesthesia Complication No 01/02/25 14:58 HEAT TREATER HEAD.PKEL Anesthesia Complication Comment: Post-operative progress note Anesthesia: Postop Eval II Evaluation Mental status: Awake and Calm Pain Level: 4 nausea: No Vomiting: No Complications Anesthesia Complication: No 01/02/25 1556 Date Nehal Villagran HEAT TREATER HEAD Cosigner Signature: Date CC: Signed Normal [facility] Operative Reporton 5 Operative Report [facility] Medical Records Department [address] [place] [address] Operative Report 01/02/25 1449 MR#: [id number] Acct: [id number] Name: LUNAJAI M Rep #: [id number] : 1950 74 From: Howard Siddiqui MD PCP: Dr. Katy Faust MD Status:[facility] Location: [place] [address]- Procedures Musculoskeletal 20xxx-29xxx: Other Procedure See Report Operative Report (Standard) Operative Information Date of Procedure: 01/02/25 Pre-Operative Diagnosis: L3-5 stenosis with neurogenic claudication Post-Operative Diagnosis: Same Surgery/Procedure Performed: L3-5 laminectomy, partial facetectomy, foraminotomy, decompression finisher fine diamond dies: Yes Company Doctor: Zaira De Jesus Tasks completed by school bus driver/teacher assistant: Closing, Removing tissue, Hemostasis: Electrocautery and [...] foraminotomy Decompression of L5 nerve root CPT 00642 Decompression of L4 nerve root CPT 36562 Decompression of L3 nerve root CPT 28412 Attending Surgeon: Dr. Howard Siddiqui Estimated blood [...] of the pars was also identified. A [place] was then placed under the inferior edge of the lamina and a C-arm lateral view was repeated. The level was confirmed to be the L3-4 interspace. Exposure of L3-5 interspaces were then completed. A Raygoza retractor of appropriate depth was then placed to provide retraction throughout the remainder of the surgery. A bone cutter was used to remove the spinous process. Distractify bone scalpel was then utilized to first [...] both sides. (more content not included)... Normal [facility] CNOVon 12-26-2024 CNOV Office Visit (INTMWS ) JAI LUNA ([id number]) 1950 M Date Time Provider Department 12/26/24 7:00 AM SRINIVASAN DA SILVAMWS During your visit today, we recorded the following information about you: Temperature Pulse Respiration Blood pressure 98.5 degrees 58/minute 16/minute 139/71 Weight 88.4 kg Srinivasan Da Silva APRN.[facility] 12/26/2024 7:44 AM Signed Subjective Patient ID: Chaka is a 74 year old male who presents for Pre-Op Exam. HPI Jai Luna is a 74-year-old male with CAD s/p CABG, coronary stents, hyperlipidemia and lumbar spinal stenosis, presenting for preoperative evaluation prior to lumbar decompression surgery. Preoperative Evaluation: - Scheduled for back surgery on 06/03 at [facility] by Dr. Siddiqui to address spinal stenosis in the lower spine. - Has seen [place] [facility] for pre-surgery evaluation. He has [...] lumbar spine surgery scheduled on the at [facility] with Dr. Siddiqui. - No active [...] perspective. CBC and CMP was completed at [facility] on December 20. - Advised to call Dr. Siddiqui's office the day before surgery to confirm surgery time if he does not receive a call with his surgery time. 2. Spinal stenosis of lumbar region with neurogenic claudication (M48.062) - Chronic lumbar spinal stenosis with neurogenic claudication affecting left leg; surgery planned to address this. 3. Coronary artery disease involving platinum coronary artery of platinum heart without angina pectoris (I25.10) 4. S/P CA (more content not included)... Normal [facility] Orthopedic Visit Reporton Orthopedic Visit Report [facility] Orthopedics [facility] [address] [address] OFFICE VISIT Date of Service: 12/22/24 MR#: [id number] Acct: [id number] Name: JAI LUNA Rep #: [id number] : 1950 Provider: Dr. Howard Siddiqui MD Age/Sex: 74/M Location: [facility] Status: Signed Intake Vital Signs 10/13/24 08:58 [...] 12/22/16) Essential hypertension 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 pectoris Hypoacusis Dyslipidemia [...] by me, Dr. Howard Siddiqui MD 12/22/24 0984. Part of today???s visit was documented by [...] recommended by a stoma nurse at the [facility]. 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 He underwent surgery to remove the clots and was initially treated w (more content not included)... Normal [facility] MRSA/SAID NASAL SCREENon MRSA+SAID SCRN Reason for Exam: preop MRSA MRSA Negative S. AUREUS S. aureus Negative Normal [facility] Comment on above: Performed By: #### M 100.651, L501.5200, L100.0100, L501.9985, BTSPAT, L500.2500 ####[facility] [address] [place], [place], [id number] Basic Metabolic Profile (BMP )on 12-20-2024 BUN/CRE 14.7 RATIO Normal 12-18 [facility] Comment on above: Performed By: #### M 100.651, L501.5200, L100.0100, L501.9985, BTSPAT, L500.2500 ####[facility] [address] [place], [place], [phone]) Calcium [Mass/Vol] 8.9 mg/dL Normal 7.6-11.0 [facility] Comment on above: Performed By: #### M 100.651, L501.5200, L100.0100, L501.9985, BTSPAT, L500.2500 ####[facility] [address] [place], [address] Chloride [Moles/Vol] 106 mmol/L Normal 98-108 [facility] Comment on above: Performed By: #### M 100.651, L501.5200, L100.0100, L501.9985, BTSPAT, L500.2500 ####[facility] [address] [place], [address] CO2 [Moles/Vol] 20.5 mmol/L Low 21.0-32.0 [facility] Comment on above: Performed By: #### M 100.651, L501.5200, L100.0100, L501.9985, BTSPAT, L500.2500 ####[facility] [address] [place], [address] Creatinine [Mass/Vol] 1.25 mg/dL High 0.70-1.20 [facility] Comment on above: Performed By: #### M 100.651, L501.5200, L100.0100, L501.9985, BTSPAT, L500.2500 ####[facility] [address] [place], [address] GAP 11 Normal 5-15 [facility] Comment on above: Performed By: #### M 100.651, L501.5200, L100.0100, L501.9985, BTSPAT, L500.2500 ####[facility] [address] [place], [address] GFR/1.73 sq M.predicted among non-blacks MDRD (S/P/Bld) [Vol rate/Area] 60 mL/min/{1.73_m2} Normal >60 [facility] Comment on above: Result Comment: mL/m in/1.73m2 CKD-EPI Creatinine Equation (2020) Performed By: #### M 100.651, L501.5200, L100.0100, L501.9985, BTSPAT, L500.2500 ####[facility] [address] [place], [address] Glucose [Mass/Vol] 100 mg/dL High 70-99 [facility] Comment on above: Performed By: #### M 100.651, L501.5200, L100.0100, L501.9985, BTSPAT, L500.2500 ####[facility] [address] [place], [address] Potassium [Moles/Vol] 4.2 mmol/L Normal 3.3-5.1 [facility] Comment on above: Performed By: #### M 100.651, L501.5200, L100.0100, L501.9985, BTSPAT, L500.2500 ####[facility] [address] [place], [address] Sodium [Moles/Vol] 138 mmol/L Normal 133-145 [facility] Comment on above: Performed By: #### M 100.651, L501.5200, L100.0100, L501.9985, BTSPAT, L500.2500 ####[facility] [address] [place], [address] Urea nitrogen [Mass/Vol] 18 mg/dL Normal 4-19 [facility] Comment on above: Performed By: #### M 100.651, L501.5200, L100.0100, L501.9985, BTSPAT, L500.2500 ####[facility] [address] [place], [address] CBC W/Diff, Automatedon 10-2 Absolute Lymph 1.88 X10 3/uL Normal 0.83-4.51 [facility] Comment on above: Performed By: #### M 100.651, L501.5200, L100.0100, L501.9985, BTSPAT, L500.2500 ####[facility] [address] [place], [address] Absolute Neut 4.4 X10 3/uL Normal 2.0-7.7 [facility] Comment on above: Performed By: #### M 100.651, L501.5200, L100.0100, L501.9985, BTSPAT, L500.2500 ####[facility] [address] [place], [address] Basophils/100 WBC (Bld) 0.9 % Normal 0-[address] [facility] Comment on above: Performed By: #### M 100.651, L501.5200, L100.0100, L501.9985, BTSPAT, L500.2500 ####[facility] [address] [place], [address] Eosinophils/100 WBC (Bld) 4.2 % Normal 0-5 [facility] Comment on above: Performed By: #### M 100.651, L501.5200, L100.0100, L501.9985, BTSPAT, L500.2500 ####[facility] [address] [place], [address] Erythrocyte distribution width (RBC) [Ratio] 14.0 % Normal 11.6-14.6 [facility] Comment on above: Performed By: #### M 100.651, L501.5200, L100.0100, L501.9985, BTSPAT, L500.2500 ####[facility] [address] [place], [address] Hematocrit (Bld) [Volume fraction] 42.6 % Normal 40-54 [facility] Comment on above: Performed By: #### M 100.651, L501.5200, L100.0100, L501.9985, BTSPAT, L500.2500 ####[facility] [address] [place], [address] Hemoglobin (Bld) [Mass/Vol] 14.3 g/dL Normal 13.0-16.5 [facility] Comment on above: Performed By: #### M 100.651, L501.5200, L100.0100, L501.9985, BTSPAT, L500.2500 ####[facility] [address] [place], [address] IG% 0.400 Normal 0.0-0.9 [facility] Comment on above: Result Comment: IG% - Immature Granulocytes (promyelocytes, myelocytes and metamyelocytes) > 1% indicates that a LEFT SHIFT is Present. Performed By: #### M 100.651, L501.5200, L100.0100, L501.9985, BTSPAT, L500.2500 ####[facility] [address] [place], [address] Lymphocytes/100 WBC (Bld) 24.8 % Normal 19-41 [facility] Comment on above: Performed By: #### M 100.651, L501.5200, L100.0100, L501.9985, BTSPAT, L500.2500 ####[facility] [address] [place], [address] MCH (RBC) [Entitic mass] 31.2 pg Normal 27.0-32.0 [facility] Comment on above: Performed By: #### M 100.651, L501.5200, L100.0100, L501.9985, BTSPAT, L500.2500 ####[facility] [address] [facility] [place], [address] MCHC (RBC) [Mass/Vol] 33.6 g/dL Normal 32-36 [facility] Comment on above: Performed By: #### M 100.651, L501.5200, L100.0100, L501.9985, BTSPAT, L500.2500 ####[facility] [address] [place], [address] MCV (RBC) [Entitic vol] 92.8 fL Normal 80-[address] [facility] Comment on above: Performed By: #### M 100.651, L501.5200, L100.0100, L501.9985, BTSPAT, L500.2500 ####[facility] [address] [place], [address] Monocytes/100 WBC (Bld) 11.3 % High 0-[address] [facility] Comment on above: Performed By: #### M 100.651, L501.5200, L100.0100, L501.9985, BTSPAT, L500.2500 ####[facility] [address] [place], [address] Neutrophils/100 WBC (Bld) 58.4 % Normal 47-70 [facility] Comment on above: Performed By: #### M 100.651, L501.5200, L100.0100, L501.9985, BTSPAT, L500.2500 ####[facility] [address] [place], [address] Nucleated RBC (Bld) [#/Vol] 0 10*3/uL Normal 0-5 [facility] Comment on above: Performed By: #### M 100.651, L501.5200, L100.0100, L501.9985, BTSPAT, L500.2500 ####[facility] [address] [place], [address] Platelet mean volume (Bld) [Entitic vol] 10.3 fL Normal 6.2-12.0 [facility] Comment on above: Performed By: #### M 100.651, L501.5200, L100.0100, L501.9985, BTSPAT, L500.2500 ####[facility] [address] [place], [address] Platelets (Bld) [#/Vol] 229 10*3/uL Normal 150-450 [facility] Comment on above: Performed By: #### M 100.651, L501.5200, L100.0100, L501.9985, BTSPAT, L500.2500 ####[facility] [address] [place], [address] RBC (Bld) [#/Vol] 4.59 10*6/uL Low 4.6-6.2 [facility] Comment on above: Performed By: #### M 100.651, L501.5200, L100.0100, L501.9985, BTSPAT, L500.2500 ####[facility] [address] [place], [address] RDW SD 48.1 fl High 35.1-43.9 [facility] Comment on above: Performed By: #### M 100.651, L501.5200, L100.0100, L501.9985, BTSPAT, L500.2500 ####[facility] [address] [place], [address] WBC (Bld) [#/Vol] 7.6 10*3/uL Normal 4.4-11.0 [facility] Comment on above: Performed By: #### M 100.651, L501.5200, L100.0100, L501.9985, BTSPAT, L500.2500 ####[facility] [address] [place], [address] Hemoglobin A1con 12-20-2024 HbA1c (Bld) [Mass fraction] 6.1 % High <=5.6 [facility] Comment on above: Result Comment: Norm al < 5.7 % Prediabetic 5.7 - 6.4 % Diabetic >or= 6.5 % Please note range changes. Performed By: #### M 100.651, L501.5200, L100.0100, L501.9985, BTSPAT, L500.2500 ####[facility] [address] [place], [address] Magnesiumon 12-20-2024 Magnesium [Mass/Vol] 2.3 mg/dL High 1.5-2.2 [facility] Comment on above: Performed By: #### M 100.651, L501.5200, L100.0100, L501.9985, BTSPAT, L500.2500 ####[facility] [address] [place], [address] Type AND Screen - PAT ONLYon 12-20-2024 Ab SCREEN GEL Negative Normal [facility] Comment on above: Order Comment: Reaso n for Laboratory Test [id number]/ANNSlumbar laminectomy Performed By: #### M 100.651, L501.5200, L100.0100, L501.9985, BTSPAT, L500.2500 ####[facility] [address] [place], [place], [address] MR/PAT.ANEon 12-19-2024 MR/PAT.ANE [facility] Medical Records Department [address] [place] [address] PAT - Anesthesia 12/19/24 1740 MR#: [id number] Acct: [id number] Name: JAI LUNA Rep #: [id number] : 1950 74 From: Dexter Wheeler MD PCP: Dr. Katy Faust MD Status:PRE [facility] Y Race: C Location: [facility] Pre-Assessment Diagnosis/Proposed Procedure Planned Operative Procedure(s): Lumbar laminectomy L3-4 and L4-5 Anesthesia History Anesthesia History - carrier operator: Anesthesia History - carrier operator Hx Hospitalization Yes: 12/2023 cervical fusion 12/19/24 [...] take am of surgery PONV PONV - carrier operator: PONV - carrier operator Female No 12/19/24 10:25 HX of Motion [...] 10/13/24 08:58 Respiratory Assessment Respiratory Assessment - carrier operator: Respiratory Tract Infection Hx - carrier operator Hx Respiratory Tract Infection No 12/19/24 10:25 STOP Sleep Apnea STOP Sleep Apnea - carrier operator: STOP Sleep Apnea - carrier operator Hx Hypertension No 12/19/24 10:25 Hx Sleep [...] Tobacco Use History Tobacco Use History - carrier operator: Tobacco Use History - carrier operator Tobacco Use Smoking Status Former smoker 12/19/24 10:25 Hx Tobacco Use No 12/19/24 10:25 Years Smoking Packs Smoked per Day Smoking Cessation Date was No - quit smoking greater 12/19/24 10:25 within the last 15 years than 15 years ago Hx Smoking Cessation Date 02/19/00 12/19/24 10:25 Hx Smoking Cessation No 12/19/24 10:25 Counseling Hematologic Medial History Hematologic Hx - carrier operator: Hematologic Medical Hx - safety tech Hx of Blood Transfusion Yes 12/19/24 10:25 [...] /Reproductio n History /Reproductiv e History - carrier operator: /Reproductiv e Hx- carrier operator Hx Now No 12/19/24 10:25 Gestational Age [...] ventricular co (more content not included)... Normal [facility] Cardiology Visit Reporton Cardiology Visit Report [facility] [address] [place], [place] [address] OFFICE VISIT Date of Service: 11/29/24 MR#: [id number] Acct: [id number] Name: JAI LUNA Rep #: [id number] : 1950 Provider: ALTAGRACIA zaidi Age/Sex: 74/M [...] abdominal area, he was lift flighted to [facility]. He then had complications for PE/DVTs. He [...] from a previous echo done at the [facility] 02/13/2022. The last catheterization November 2016 the [...] procedures. The stenting procedures were done at [facility] by Dr. Joshua Lloyd. He [...] (%) 95 Intake Visit Reasons: Clearance visit Shopper Marketing Manager Required: No Is patient in pain?: No [...] lumbar surgery scheduled for december dr. siddiqui [facility] Medical History (Updated 11/29/24 @ 11:05 by Carlos Trujillo BOX COVERER HAND, BOX COVERER HAND-C) Obesity (BMI 30.0-34.9) MRSA (methicillin resistant staph aureus) culture positive Deaf Wears hearing aid Wears glasses Cancer High cholesterol DVT (deep venous thrombosis) Injury of head and neck Loss of consciousness Gastric reflux Former smoker History of edema History of echocardiogram History of stress test Cardiology follow-up encounte (more content not included)... Normal [facility] Orthopedic Visit Reporton Orthopedic Visit Report [facility] [address] [place] [address] [address] [place] [address] OFFICE VISIT Date of Service: 10/13/24 MR#: [id number] Acct: [id number] Name: AJI LUNA Rep #: [id number] : 1950 Provider: Dr. Howard Siddiqui MD Age/Sex: 74/M Location: [facility] Status: Signed Intake Vital Signs 04/25/24 10:35 [...] 12/22/16) Essential hypertension 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 pectoris Hypoacusis Dyslipidemia [...] treated s (more content not included)... Normal [facility] Arterial Doppler ultrasound reportOrdered By: Raghu Reynolds on 10-10-2024 Study report [facility] [address] [place] [address] US Art Duplex Unilat UP Extrem 10/10/24 0807 MR#: [id number] Acct: [id number] Name: JAI LUNA Rep #:[id number] : 1950 74 From: Raghu Kwan Attending [...] Dictated: 10/10/24 0807 Date Transcribed: 10/10/24 1343 Manager Metal: Signed [facility] Work Phone: Arterial study reportOrdered By: Raghu Reynolds on 10-10-2024 Noninvasive arteriosclerosis study report [facility] [address] [place] [address] Upper Extremity Arterial Study 10/10/24825 MR#: [id number] Acct: [id number] Name: JAI LUNA Rep #:[id number] : 1950 74 From: Raghu Kwan Attending Dr: JANICE Bocanegra Stat us: REG CLI Ordering Dr: Naty Amato Date: Location: [facility] Sex: M C Admitted: Reason For Study [...] Physician: Katy Faust Performed By: Saúl Pearson, [facility] 10/10/24 1341 Date _ Raghu Reynolds MD CC: JANICE Bocanegra; Dr. Katy Faust MD ~ Date Dictated: 10/10/24825 Date Transcribed: 10/10/24 134 Manager Metal: Signed [facility] Work Phone: US Art Duplex Unilat UP [facility] 10-10-2024 US Art Duplex Unilat UP Extrem [facility] [address] [place] [address] US Art Duplex Unilat UP Extrem 10/10/24 08 MR#: [id number] Acct: [id number] Name: JAI LUNA Rep #: [id number] : 1950 74 From: Raghu Reynolds MD [...] Dictated: 10/10/24 08 Date Transcribed: 10/10/24 134 Manager Metal: Signed Normal [facility] Upper Extremity Arterial Diogo dyon 10-10-2024 Upper Extremity Arterial Study [facility] [address] [place] [address] Upper Extremity Arterial Study 10/10/24 0826 MR#: [id number] Acct: [id number] Name: JAI LUNA Rep #: [id number] : 1950 74 From: Raghu Reynolds MD Attending Dr: JANICE Bocanegra Status: REG CLI Ordering Dr: Naty Amato Date: 10/10/24 Location: [facility] Sex: M C Admitted: Reason For Study [...] Date Dictated: 10/10/24825 Date Transcribed: 10/10/24 134 Manager Metal: Signed Normal [facility] PT D/C Summary (1)on 025 PT D/C Summary (1) [facility] Physical Therapy [facility] [address] [place] [address] [address] [place] [address] / REHABILITATION SERVICES DISCHARGE SUMMARY MR#: [id number] Acct: [id number] Name: JAI LUNA Rep #: [id number] : 1950 74 From: Vinh Sweeney PT, ATC Referring Dr.: Dr. Howard Siddiqui MD Status: REG RCR Insurance: MEDICARE PART A B [facility] Discharge Summary D/C summary: It has been [...] please feel free to call me at [phone]. Thank you for the referral of this patient. Sincerely, Vinh Sweeney, PT, ATC Balance/Gait/Function al tests Balance/Special Test Scores Oswestry Low Back Score: 6 Improvement % Improvement: 70 09/22/24 0903 CC: Dr. Howard Siddiqui MD; Dr. Katy Faust MD [facility] Signed Normal [facility] Spine Thoracic W/WO Contrast on 09-20-2024 Spine Thoracic W/WO Contrast [facility] Imaging Services [address] [place] [id number] Spine Thoracic W/WO Contrast MR#: [id number] Acct: [id number] Name: JAI LUNA Rep #: [id number] : 1950 74 From: Vikash Hoffman MD PCP: Dr. Katy Faust MD Status: REG CLI Study: Spine Thoracic W/WO Contrast Date of Exam: Exam# [id number] Ordering Dr: Howard Siddiqui MD PROCEDURE: SPINE [...] of acute process. Reading Location: [facility] CC: Dr. Howard Siddiqui MD; Dr. Katy Faust MD Manager Metal: Signed Normal [facility] Orthopedic Visit Reporton Orthopedic Visit Report [facility] [address] [facility] [place] [address] OFFICE VISIT Date of Service: 09/13/24 MR#: [id number] Acct: [id number] Name: JAI LUNA Rep #: [id number] : 1950 Provider: Dr. Howard Siddiqui MD Age/Sex: 74/M Location: [facility] Status: Signed Intake Vital Signs 04/25/24 10:35 [...] 12/22/16) Essential hypertension 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 pectoris Hypoacusis Dyslipidemia [...] by me, Dr. Howard Siddiqui MD 09/13/24 7496. Part of today???s visit was documented by Radha MUSTAFA and Izzy Castro RN, acting as scribe. JAI LUNA is a 74 year old M here today for pain that he has been having underneath his left scapula that started 6 weeks ago. He thought at first it was a strained muscle but it has worsened over time. He did see Norm Alvarez an school bus driver/teacher assistant of his PCP. She did prescribed [...] male pr (more content not included)... Normal [facility] Thoracic Spine 3 Viewson Thoracic Spine 3 Views [facility] Imaging Services [address] [place] [address] Thoracic Spine 3 Views MR#: [id number] Acct: [id number] Name: JAI LUNA Rep #: [id number] : 1950 M 74 From: Enedina Mitchell nd, MD PCP: Dr. Katy Faust MD Status: DEP AMB Study: Thoracic Spine 3 Views Date of Exam: 09/13/24 Exam# [id number] Ordering Dr: Zaira De Jesus PROCEDURE: THORACIC [...] finding. Chronic findings as described. Reading Location: [facility] CC: JANICE Barakat; Dr. Katy Faust MD Manager Metal: Signed Normal [facility] Inital Evaluation (1) - PTon 08-29-2024 Inital Evaluation (1) - PT [facility] Physical Therapy [facility] [address] [place] [address] / REHABILITATION SERVICES INITIAL EVALUATION MR#: [id number] Acct: [id number] Name: JAI LUNA Rep #: [id number] : 1950 74 From: Vinh Sweeney PT, [...] to be FAXED BACK to us at [phone] for Medicare purposes. For Medicare only, by signing this I certify the plan of care. Please let me know if there are questions or concerns regarding this plan of care. Physician Signature: Date : 08/29/24 1124 CC: Dr. Howard Siddiqui MD; Dr. Katy Faust MD [facility] Signed Normal [facility] MR/BMS.BVSon 08-22-2024 MR/BMS.BVS [facility] [address] [place], [place] [address]. [address] [place] [address] OFFICE VISIT Date of Service: 08/23/24 MR#: [id number] Acct: [id number] Name: JAI LUNA Rep #: [id number] : 1950 Provider: JANICE Bocanegra Age/Sex: 74/M Location: [facility]S Status: Signed Intake Vital Signs 04/25/24 10:35 [...] you fallen in the past year?: [facility] MRSA (methicillin resistant [...] 12/22/16) Essential hypertension 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 pectoris Hypoacusis Dyslipidemia [...] thyroid diseas (more content not included)... Normal [facility] CNOVon 08-15-2024 CNOV Office Visit (INTMWS ) JEREMYJAI M ([id number]) 1950 M Date Time Provider Department 08/15/24 3:20 PM NORM PARKER INTMWS During your visit today, we recorded the following information about you: Pulse Blood pressure Weight 62/minute 132/70 87.3 kg Norm Parker APRN.CUP MACHINE OPERATOR 08/15/2024 4:07 PM Signed SUBJECTIVE Jai Luna [...] (H[facility]) - 07/21/2022 Pulmonary Embolism and Infarction ([facility]) - 03/02/2022 Pulmonary Embolism ([facility]) - 02/13/2022 Hypokalemia - 02/10/2022 Urinary Retention - [address] ([facility]) - 01/28/2022 Rectal Cancer ([facility]) - 01/27/2022 Rectal Malignant Neoplasm ([facility]) - 05/29/2021 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 Musculoske (more content not included)... Normal [facility] Arterial study reportOrdered By: Raghu Reynolds on 08-03-2024 Noninvasive arteriosclerosis study report [facility] [address] [place] [address] Upper Extremity Arterial Study 08/01/24 0849 MR#: [id number] Acct: [id number] Name: JEREMYJAI M Rep #:[id number] : 1950 74 From: Raghu Kwan Attending [...] Dictated: 08/01/24 0849 Date Transcribed: 08/03/24 1039 Manager Metal: Signed [facility] Work Phone: Upper Extremity Arterial Diogo dyshruti 08-01-2024 Upper Extremity Arterial Study [facility] [place] [address] Upper Extremity Arterial Study 08/01/24 0849 MR#: [id number] Acct: [id number] Name: JAI LUNA Rep #: [id number] : 1950 74 From: Raghu Reynolds MD [...] Date Dictated: 08/01/24 0849 Date Transcribed: 08/03/241038 Manager Metal: Signed [facility] CNNURSEon 07-31-2024 CNNURSE Nurse Visit (CORSMN) JAI LUNA ([id number]) 1950 M Date Time Provider Department 07/31/24 [...] 45 minutes TRAVIS RobbinsN RN CWOCN [facility] nursing pager [phone] (M-F 7a-4p, Sat, Sun, Holiday 7a-3p) Allergies As of Date: 07/31/2024 Noted Allergy Reaction CAT DANDER 02/27/2022 14 - Other: See Comments CLINDAMYCIN 03/28/2021 8 - GI Upset CODEINE 06/20/2007 8 - GI Upset Date Reviewed: 07/05/2024 Reviewed by: Norm Parker APRN.CUP MACHINE OPERATOR - Fully Assessed Primary Visit Diagnosis:Attention to [...] embolism [Z86.711] 09/22/2023 PVD (peripheral vascular disease) ([facility]) [I73.9] 09/22/2023 History of DVT (deep vein thrombosis) [Z86.718] 09/22/2023 Encounter Status:Closed by LEONARDO VILLAREAL on 07/31/24 [facility]-18-2024 CNPN Telephone ([facility]) JAI LUNA ([id number]) 1950 M Date Time Provider Department 07/18/24 Ramiro CHEUNG During your visit today, we recorded the following information about you: [facility], Jeyson Jackson 07/18/2024 11:46 AM Signed Jai Luna [phone], checking the status of new order being sent to [facility] [phone], fax [phone]. Praveena Duran, RN 07/18/2024 12:47 PM Signed WO nursing returned patient message regarding: Pt needs an updated supply form faxed to [facility]. Left Message: No- spoke directly to pt Information/Recommend ations provided regarding: Updated supply form faxed to [facility] as requested. Fax confirmation received. All WO Nursing needs addressed. Time spent: 15 minutes TRAVIS HoffmanN, RN, CWOCN For non-emergent WO Nursing patient care needs - Please place a consult via Epic under "ostomy". WOC Nurse Available Hours: M-F: [phone]; Weekends AND Holidays: [phone] For emergent WO Nursing patient care needs - Page #[phone], during available hours only. Allergies As of [...] by JEYSON ELKINS on 07/18/24 [facility] 07-17-2024 [facility] (COR[facility]) JEREMYJAI Sevilla ([id number]) 1950 M Date Time Provider Department 07/17/24 8:15 AM [facility] EMIGDIO During your visit today, we recorded the following information about you: Praveena Duran RN 07/18/2024 12:[address] [facility] Nursing Consult Topic: [facility] Consultation Note Outcome: Pt to A30 [facility] [facility] Nursing. He has an established ileostomy for several years. He is here today with complaints of peristomal ulcer and pain. We discussed switching from a flat to a convex pouching system. Pt agreed with this. He has an established relationship with [employer] for supplies. If he likes the new pouch he can order it from [employer]. I provided him with x4 sets of samples. Next Scheduled Visit: 2 week for f/u with [facility] nursing to assess peristomal ulcer and new [...] [employer]c SurFit Natura Durahesive flat cut-to-fit flange. [place] CearRing. Drainable pouch. Wear Time Goal: 3 days Time Increment: 1 hour SCOTTIE Hoffman, RN, CWOCN For non-emergent [facility] Nursing patient care needs - Please place a consult via Epic under "ostomy". WO Nurse Available Hours: M-F: [phone]; Weekends AND Holidays: [phone] For emergent WO Nursing patient care needs - Page #[phone], during available hours only. Praveena Duran RN 07/18/2024 12:41 [place] [address] Patient: Jai Luna Patient Address: [address] [place] [address] Preferred Gender: male Date of : 1950 Type of Stoma: Loop Ileostomy Diagnosis: Ileostomy Status Z93.2 OSTOMY SUPPLY ORDER FORM Pouch: [employer]ec: 1 ?" Natura + Drainable pouch, Transparent #[id number] 30 day use - 2 Boxes Wafer: [employer]: Hailey-Fit Natura 1 3/" Flat Durahesive # [id number] 30 day use - 2 Boxes Moldable Ring: [place] CeraRing Regular # [id number] 30 day use - 2 Boxes Refills: 11 Attending Physician: Dr. Cheung For immediate authorization, please contact the physician?s office. SIGNATURE: Praveena Duran RN PATIENT NAME: Jai Luna DATE: July 18, 2024 TIME: 12:38 PM CONTACT #: [phone] Allergies As of Date: 07/17/2024 Noted Allergy Reaction CAT DANDER 02/27/2022 14 - Other: See Comments CLINDAMYCIN 03/28/2021 8 - GI Upset CODEINE 06/20/2007 8 - GI Upset Date Reviewed: 07/05/2024 Reviewed by: Norm Parker APRN.CUP MACHINE OPERATOR - Fully Assessed Primary Visit Diagnosis:Attention to [...] [M54.12] 04/30/2021 (more content not included)... Normal [facility] Orthopedic Visit Reporton Orthopedic Visit Report [facility] [address] [place] [address] OFFICE VISIT Date of Service: 07/06/24 MR#: [id number] Acct: [id number] Name: JAI LUNA Rep #: [id number] : 1950 Provider: Dr. Howard Siddiqui MD Age/Sex: 74/M Location: [facility] [place].JORGE Status: Signed Intake Vital Signs 04/25/24 10:35 [...] 12/22/16) Essential hypertension 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 pectoris Hypoacusis Dyslipidemia [...] He has an appointment on 07/17/24 in [place] for an evaluation and possible surgery. 04/21/24: [...] along with (more content not included)... Normal [facility] CNOVon 07-05-2024 OV Office Visit (INTMWS ) JAI LUNA ([id number]) 1950 M Date Time Provider Department 07/05/24 8:00 AM NORM PARKER During your visit today, we recorded the following information about you: Pulse Blood pressure Weight 75/minute 138/80 86.3 kg Norm Parker APRN.CUP MACHINE OPERATOR 07/05/2024 9:18 AM Signed SUBJECTIVE Jai Luna [...] of Proximal Vein of Left Lower Extremity ([facility]) - 07/21/2022 Pulmonary Embolism and Infarction ([facility]) - 03/02/2022 Pulmonary Embolism ([facility]) - 02/13/2022 Hypokalemia - 02/10/2022 Urinary Retention - [address] ([facility]) - 01/28/2022 Rectal Cancer ([facility]) - 01/27/2022 Rectal Malignant Neoplasm ([facility]) - 05/29/2021 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 Normal [facility] 07-05-2024 [facility] Telephone (INTMWS) JAI LUNA ([id number]) 1950 M Date Time Provider Department 07/05/24 KATY FAUST INTWS During your visit today, we recorded the following information about you: Norm Parker APRN.CUP MACHINE OPERATOR 07/05/2024 9:21 AM Signed Good morning, Chaka is a mutual patient who was seen in the office this morning. He has a deep ulceration to the abdomen at the base of his stoma. Stoma output is normal and color is beefy red. The ulceration is painful. Would Dr. Duong or Rabai like to get him seen [facility] or would they like to get him seen with one of the ostomy nurses [facility] due to the concern of the potential for infection in the area and interference with the stoma. Thank you, Don Carvajal LPN 07/07/2024 8:31 AM Signed Allergies As of Date: 07/05/2024 Noted Allergy Reaction CAT DANDER 02/27/2022 14 - Other: See Comments CLINDAMYCIN 03/28/2021 8 - GI Upset CODEINE 06/20/2007 8 - GI Upset Date Reviewed: 07/05/2024 Reviewed by: Norm Parker APRN.CUP MACHINE OPERATOR - Fully Assessed Reason for Visit: Patient [...] Encounter Status:Closed by NORM PARKER on 07/05/24 [facility] CNOVon 05-31-2024 CNOV Office Visit (INTMWS ) JAI LUNA ([id number]) 1950 M Date Time Provider Department 05/31/24 3:40 PM KATY FAUST INTMWS During your visit today, we recorded the following information about you: Temperature Pulse Respiration Blood pressure 97 degrees 64/minute 16/minute 138/68 Weight 88.2 kg Katy Faust MD 05/31/2024 5:06 PM Signed This note was created using Zscaler. Subjective Jai Luna is a 74 year [...] of seeking a second opinion from another family protection specialist if symptoms persist or worsen. # [...] the date of the service which included [id number] patient care, completing clinical documentation, obtaining and/or reviewing separately obtained history, performing a medically appropriate examination, counseling and educating the patient/family/caregi carolann, and ordering medications, tests, or procedures . Katy Faust MD The patient consented to the use of Genticel software for draft documentation of the visit consistent with [facility]?s Notice of Privacy Practices. Katy Faust MD 05/31/2024 5:04 PM Addendum - Contact Dr. Reed to schedule an appointment to discuss worsening symptoms and potential treatment options for lumbar stenosis. - When walkin (more content not included)... Normal [facility] Urine Cultureon 04-27-2024 URC Below infection level. Mixed Gram Positive Organisms Mckean Count 1000-10,000 MIXC Mixed contaminants. Submit a new specimen if indicated. Normal [facility] Comment on above: Performed By: #### M 100.2200 ####[facility] [address] [facility]. [place], [place], [address] Abdomen/Pelvis W IV Cont ONL Yon 04-25-2024 Abdomen/Pelvis W IV Cont ONLY [facility] Imaging Services [address] [place], [place] [address] Abdomen/Pelvis W IV Cont ONLY MR#: [id number] Acct: [id number] Name: JAI LUNA Rep #: [id number] : 1950 M 74 From: Leno hardin MD PCP: Dr. Katy Faust MD Status: REG ER Study: Abdomen/Pelvis W IV Cont ONLY Date of Exam: Exam# [id number] Ordering Dr: Tejal Bassett PROCEDURE: ABDOMEN/PELVIS W [...] use of iterative reconstruction technique). Reading Location: [id number] CC: Dr. Katy Faust MD; JANICE Green Manager Metal: Signed Normal [facility] Absolute lymphocyte countOrd ered By: Tejal Bassett on 04-25-2024 Lymphocytes Auto (Unsp spec) [#/Vol] 1.89 10*3/uL 0.83-4.51 [facility] Absolute neutrophil countOrd ered By: Tejal Bassett on 04-25-2024 Neutrophils (Bld) [#/Vol] 3.2 10*3/uL 2.0-7.7 [facility] Automated lymphocyte count a s percentage of total leukocytesOrdered By: Tejal Bassett on 04-25-2024 Lymphocytes/100 WBC Auto (Unsp spec) 28.7 % 19-41 [facility] BUN/creatinine ratioOrdered By: Tejal Bassett on 04-25-2024 Urea nitrogen/Creatinine [Mass ratio] 17.3 mg/mg 10-20 [facility] Comment on above: Previous reported re sult: 18.5 RATIOEdited by: AUTOINS on 04/25/24:1504 AMENDED REPORT 04/25/24 1504 BUN/CRE previously reported as: 18.5 RATIO Basophil percentageOrdered B y: Tejal Bassett on 04-25-2024 Basophils/100 WBC (Bld) 0.6 % 0-[address] [facility] Bilirubin Test strip Ql (U)O rdered By: Tejal Bassett on 04-25-2024 Bilirubin Ql (U) Negative Negative [facility] Bilirubin, totalOrdered By: Tejal Bassett on 04-25-2024 Bilirubin [Mass/Vol] 0.33 mg/dL 0.00-1.30 [facility] Comment on above: Previous reported re sult: 0.36 mg/dLEdited by: AUTOINS on 04/25/24:1504 AMENDED REPORT 04/25/24 1504 T BILI previously reported as: 0.36 mg/dL CBC W/Diff, Automatedon 04-02 Absolute Lymph 1.89 X10 3/uL Normal 0.83-4.51 [facility] Comment on above: Performed By: #### L 500.4050, L100.0100 ####[facility] [address] [place], [address] Absolute Neut 3.2 X10 3/uL Normal 2.0-7.7 [facility] Comment on above: Performed By: #### L 500.4050, L100.0100 ####[facility] [address] [place], [address] Basophils/100 WBC (Bld) 0.6 % Normal 0-[address] [facility] Comment on above: Performed By: #### L 500.4050, L100.0100 ####[facility] [address] [place], [address] Eosinophils/100 WBC (Bld) 3.3 % Normal 0-5 [facility] Comment on above: Performed By: #### L 500.4050, L100.0100 ####[facility] [address] [place], [address] Erythrocyte distribution width (RBC) [Ratio] 13.3 % Normal 11.6-14.6 [facility] Comment on above: Performed By: #### L 500.4050, L100.0100 ####[facility] [address] [place], [address] Hematocrit (Bld) [Volume fraction] 42.9 % Normal 40-54 [facility] Comment on above: Performed By: #### L 500.4050, L100.0100 ####[facility] [address] [place], [address] Hemoglobin (Bld) [Mass/Vol] 14.0 g/dL Normal 13.0-16.5 [facility] Comment on above: Performed By: #### L 500.4050, L100.0100 ####[facility] [address] [place], [address] IG% 0.800 Normal 0.0-0.9 [facility] Comment on above: Result Comment: IG% - Immature Granulocytes (promyelocytes, myelocytes and metamyelocytes) > 1% indicates that a LEFT SHIFT is Present. Performed By: #### L 500.4050, L100.0100 ####[facility] [address] [place], [address] Lymphocytes/100 WBC (Bld) 28.7 % Normal 19-41 [facility] Comment on above: Performed By: #### L 500.4050, L100.0100 ####[facility] [address] [place], [address] MCH (RBC) [Entitic mass] 31.0 pg Normal 27.0-32.0 [facility] Comment on above: Performed By: #### L 500.4050, L100.0100 ####[facility] [address] [place], [address] MCHC (RBC) [Mass/Vol] 32.6 g/dL Normal 32-36 [facility] Comment on above: Performed By: #### L 500.4050, L100.0100 ####[facility] [address] [place], [address] MCV (RBC) [Entitic vol] 95.1 fL High 80-[address] [facility] Comment on above: Performed By: #### L 500.4050, L100.0100 ####[facility] [address] [place], [address] Monocytes/100 WBC (Bld) 17.6 % High 0-[address] [facility] Comment on above: Performed By: #### L 500.4050, L100.0100 ####[facility] [address] [place], [address] Neutrophils/100 WBC (Bld) 49.0 % Normal 47-70 [facility] Comment on above: Performed By: #### L 500.4050, L100.0100 ####[facility] [address] [place], [address] Nucleated RBC (Bld) [#/Vol] 0 10*3/uL Normal 0-5 [facility] Comment on above: Performed By: #### L 500.4050, L100.0100 ####[facility] [address] [place], [address] Platelet mean volume (Bld) [Entitic vol] 9.8 fL Normal 6.2-12.0 [facility] Comment on above: Performed By: #### L 500.4050, L100.0100 ####[facility] [address] [place], [address] Platelets (Bld) [#/Vol] 320 10*3/uL Normal 150-450 [facility] Comment on above: Performed By: #### L 500.4050, L100.0100 ####[facility] [address] [place], [address] RBC (Bld) [#/Vol] 4.51 10*6/uL Low 4.6-6.2 [facility] Comment on above: Performed By: #### L 500.4050, L100.0100 ####[facility] [address] [place], [address] RDW SD 47.1 fl High 35.1-43.9 [facility] Comment on above: Performed By: #### L 500.4050, L100.0100 ####[facility] [address] [place], [address] WBC (Bld) [#/Vol] 6.6 10*3/uL Normal 4.4-11.0 [facility] Comment on above: Performed By: #### L 500.4050, L100.0100 ####[facility] [address] [place], [address] Comprehensive Metabolic Prof ilon 04-25-2024 Calcium [Mass/Vol] 9.1 mg/dL Normal 7.6-11.0 [facility] Comment on above: Performed By: #### L 500.4050, L100.0100 ####[facility] [address] [place], [address] Chloride [Moles/Vol] 106 mmol/L Normal 98-107 [facility] Comment on above: Performed By: #### L 500.4050, L100.0100 ####[facility] [address] [place], [address] CO2 [Moles/Vol] 19.0 mmol/L Low 21.0-32.0 [facility] Comment on above: Performed By: #### L 500.4050, L100.0100 ####[facility] [address] [place], [address] GAP 15 Normal 5-15 [facility] Comment on above: Performed By: #### L 500.4050, L100.0100 ####[facility] [address] [place], [address] Potassium [Moles/Vol] 4.0 mmol/L Normal 3.5-5.1 [facility] Comment on above: Performed By: #### L 500.4050, L100.0100 ####[facility] [address] [place], [address] Sodium [Moles/Vol] 140 mmol/L Normal 136-145 [facility] Comment on above: Performed By: #### L 500.4050, L100.0100 ####[facility] [address] [place], [address] Emergency Department Summary on 04-25-2024 Emergency Department Summary [facility] Medical Records Department [address] [place] [address] Emergency Department Summary 04/25/24 MR#: [id number] Acct: [id number] Name: JAI LUNA Rep #: [id number] : 1950 74 From: Tejal CAMACHO PCP: [...] than usual based on what he eats. [facility] Medical History MRSA (methicillin resistant staph aureus) [...] 12/22/16) Essential hypertension 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 pectoris Hypoacusis Dyslipidemia [...] and tender (more content not included)... Normal [facility] Eosinophil percentageOrdered By: Tejal Bassett on 04-25-2024 Eosinophils/100 WBC (Bld) 3.3 % 0-5 [facility] Erythrocyte distribution wid th ratioOrdered By: Tejal Bassett on 04-25-2024 Erythrocyte distribution width (RBC) [Ratio] 13.3 % 11.6-14.6 [facility] Erythrocyte distribution wid th standard deviationOrdered By: Tejal Bassett on 04-25-2024 Erythrocyte distribution width (RBC) [Ratio] 47.1 fl High 35.1-43.9 [facility] Glomerular filtration rate ( GFR) estimation/1.73 sq m using serum, plasma, or whole bOrdered By: Tejal Bassett on 04-25-2024 GFR/1.73 sq M.predicted among non-blacks MDRD (S/P/Bld) [Vol rate/Area] 70 mL/min/{1.73_m2} >60 [facility] Comment on above: mL/min/1.73m2 CKD-EP I Creatinine Equation (2020)Previous reported result: 76 Edited by: RASHIDA on 04/25/24:1504 AMENDED REPORT 04/25/241503 EST GFR previously reported as: 76 mL/min/1.73m2 CKD-EPI Creatinine Equation (2020) Hematocrit Auto (Bld) [Volum e fraction]Ordered By: Tejal Bassett on 04-25-2024 Hematocrit (Bld) [Volume fraction] 42.9 % 40-54 [facility] Hemoglobin measurementOrdere d By: Tejal Bassett on 04-25-2024 Hemoglobin (Bld) [Mass/Vol] 14.0 g/dL 13.0-16.5 [facility] Immature granulocytes/100 WB C Auto (Bld)Ordered By: Tejal Bassett on 04-25-2024 Immature granulocytes/100 WBC (Bld) 0.800 % 0.0-0.9 [facility] Comment on above: IG% - Immature Granu locytes (promyelocytes, myelocytes and metamyelocytes) > 1% indicates that a LEFT SHIFT is Present. Ketones Test strip Ql (U)Ord ered By: Tejal Bassett on 04-25-2024 Ketones Ql (U) Negative Negative [facility] Laboratory - Chemistry and C hemistry - challengeOrdered By: Tejal Bassett on 04-25-2024 AST [Catalytic activity/Vol] 40 U/L High <38 [facility] Comment on above: Previous reported re sult: 38 U/LEdited by: RASHIDA on 04/25/24:1504 AMENDED REPORT 04/25/241503 AST previously reported as: 38 U/L MCV (mean corpuscular volume ) determinationOrdered By: Tejal Bassett on 04-25-2024 MCV (RBC) [Entitic vol] 95.1 fL High 80-[address] [facility] Mean corpuscular hemoglobin (MCH) determinationOrdered By: Tejal Bassett on 04-25-2024 MCH (RBC) [Entitic mass] 31.0 pg 27.0-32.0 [facility] Mean corpuscular hemoglobin concentration (MCHC) determinationOrdered By: Tejal Bassett on 04-25-2024 MCHC (RBC) [Mass/Vol] 32.6 g/dL 32-36 [facility] Mean platelet volume determi nationOrdered By: Tejal Bassett on 04-25-2024 Platelet mean volume (Bld) [Entitic vol] 9.8 fL 6.2-12.0 [facility] Microscopic analysis of urin e for red blood cells (RBC)Ordered By: Tejal Bassett on 04-25-2024 Microscopic analysis of urine for red blood cells (RBC) 25-50 SEEN /hpf 0-5 [facility] Monocyte percentageOrdered B y: Tejal Bassett on 04-25-2024 Monocytes/100 WBC (Bld) 17.6 % High 0-[address] [facility] Mucus LM Ql (Urine sed)Order ed By: Tejal Bassett on 04-25-2024 Mucus Ql (Urine sed) 0 SEEN /hpf [facility] Neutrophil percentageOrdered By: Tejal Bassett on 04-25-2024 Neutrophils/100 WBC (Bld) 49.0 % 47-70 [facility] Nitrite Test strip Ql (U)Ord ered By: Tejal Bassett on 04-25-2024 Nitrite Ql (U) Negative Negative [facility] Nucleated red blood cell per centageOrdered By: Tejal Bassett on 04-25-2024 Nucleated RBC/100 WBC (Bld) [Ratio] 0 % 0-5 [facility] Platelet countOrdered By: Carey Bassett on 04-25-2024 Platelets (Bld) [#/Vol] 320 10*3/uL 150-450 [facility] Potassium measurementOrdered By: Tejal Bassett on 04-25-2024 Potassium [Moles/Vol] 4.0 mmol/L 3.5-5.1 [facility] Protein Test strip Ql (U)Ord ered By: Tejal Bassett on 04-25-2024 Protein Ql (U) 30 mg/dl High Negative [facility] RBC Auto (Bld) [#/Vol]Ordere d By: Tejal Bassett on 04-25-2024 RBC (Bld) [#/Vol] 4.51 10*6/uL Low 4.6-6.2 [facility] Serum anion gap measurementO rdered By: Tejal Bassett on 04-25-2024 Anion gap [Moles/Vol] 15 mmol/L 5-15 [facility] Serum globulin measurementOr dered By: Tejal Bassett on 04-25-2024 Globulin (S) [Mass/Vol] 3.2 g/dL 2.2-4.[address] [facility] Comment on above: Previous reported re sult: 3.3 g/dLEdited by: RASHIDA on 04/25/24:1504 AMENDED REPORT 04/25/24 1504 GLOB previously reported as: 3.3 g/dL Serum glucose measurement (m ass/volume)Ordered By: Tejal Bassett on 04-25-2024 Glucose [Mass/Vol] 89 mg/dL 70-99 [facility] Comment on above: Previous reported re sult: 92 mg/dLEdited by: RASHIDA on 04/25/24:1504 AMENDED REPORT 04/25/24 1504 GLU previously reported as: 92 mg/dL Serum or plasma alanine loya otransferase (ALT) measurementOrdered By: Tejal Bassett on 04-25-2024 ALT [Catalytic activity/Vol] 38 U/L <47 [facility] Comment on above: Previous reported re sult: 36 U/LEdited by: RASHIDA on 04/25/24:1504 AMENDED REPORT 04/25/24 1504 ALT previously reported as: 36 U/L Serum or plasma albumin shae urement (mass/volume)Ordered By: Tejal Bassett on 04-25-2024 Albumin [Mass/Vol] 4.1 g/dL 3.4-4.8 [facility] Serum or plasma albumin/glob ulin mass ratioOrdered By: Tejal Bassett on 04-25-2024 Albumin/Globulin [Mass ratio] 1.3 {ratio} 0.9-2.4 [facility] Comment on above: Previous reported re sult: 1.2 RATIOEdited by: AUTOINS on 04/25/24:1227 AMENDED REPORT 04/25/24 122 A/G previously reported as: 1.2 RATIO Serum or plasma alkaline guru sphatase measurementOrdered By: Tejal Bassett on 04-25-2024 ALP [Catalytic activity/Vol] 92 U/L 40-129 [facility] Comment on above: Previous reported re sult: 96 U/LEdited by: BLAIRS on 04/25/24:1504 AMENDED REPORT 04/25/24 150 ALK P previously reported as: 96 U/L Serum or plasma calcium shae urement (mass/volume)Ordered By: Tejal Bassett on 04-25-2024 Calcium [Mass/Vol] 9.1 mg/dL 7.6-11.0 [facility] Serum or plasma carbon dioxi de measurement (moles/volume)Ordered By: Tejal Bassett on 04-25-2024 CO2 [Moles/Vol] 19.0 mmol/L Low 21.0-32.0 [facility] Serum or plasma chloride orville surement (moles/volume)Ordered By: Tejal Bassett on 04-25-2024 Chloride [Moles/Vol] 106 mmol/L 98-107 [facility] Serum or plasma creatinine m easurement (moles/volume)Ordered By: Tejal Bassett on 04-25-2024 Creatinine [Moles/Vol] 1.1 mg/dL 0.8-1.3 [facility] Comment on above: Previous reported re sult: 1.0 mg/dLEdited by: AUTOINS on 04/25/24:1504 AMENDED REPORT 04/25/24 1504 CREAT,SERUM previously reported as: 1.0 mg/dL Serum or plasma urea nitroge n measurement (mass/volume)Ordered By: Tejal Bassett on 04-25-2024 Urea nitrogen [Mass/Vol] 18 mg/dL 4-19 [facility] Comment on above: Previous reported re sult: 19 mg/dLEdited by: AUTOINS on 04/25/24:1504 AMENDED REPORT 04/25/24 1504 BUN previously reported as: 19 mg/dL Sodium levelOrdered By: Tejal Bassett on 04-25-2024 Sodium [Moles/Vol] 140 mmol/L 136-145 [facility] Squamous epithelial cells de tection in urine sediment by light microscopyOrdered By: Tejal Bassett on 04-25-2024 Epithelial cells.squamous LM Ql (Urine sed) 0-5 SEEN /hpf 0-5 [facility] Total proteinOrdered By: Mary Ellen Bassett on 04-25-2024 Protein [Mass/Vol] 7.3 g/dL 5.9-8.4 [facility] Comment on above: Previous reported re sult: 7.4 g/dLEdited by: RASHIDA on 04/25/24:1504 AMENDED REPORT 04/25/241503 T PROT previously reported as: 7.4 g/dL Urinalysis, Completeon 04-25 EPI,SQUAMOUS 0-5 SEEN Normal 0-5 [facility] Comment on above: Order Comment: KEITH TER SPECIMEN Performed By: #### L 400.0001 #### [facility] [address] [place], [address] RBC 25-50 SEEN Normal 0-[address] [place] [address] Comment on above: Order Comment: KEITH TER SPECIMEN Performed By: #### L 400.0001 #### [facility] [address] [place], [address] BACTERIA 0 SEEN Normal None Seen [facility] Comment on above: Order Comment: KEITH TER SPECIMEN Performed By: #### L 400.0001 #### [facility] [address] [place], [address] Mucus Ql (Urine sed) 0 SEEN Normal [facility] Comment on above: Order Comment: KEITH TER SPECIMEN Performed By: #### L 400.0001 #### [facility] [address] [place], [address] WBC 0 SEEN Normal 0-5 [facility] Comment on above: Order Comment: KEITH TER SPECIMEN Performed By: #### L 400.0001 #### [facility] Cristian [place], [address] Urine clarityOrdered By: Mary Ellen Bassett on 04-25-2024 Clarity (U) Sl. Cloudy Clear [facility] Urine color determinationOrd ered By: Tejal Bassett on 04-25-2024 Color (U) Yellow Yellow [facility] Urine cultureOrdered By: Mary Ellen Bassett on 04-25-2024 Bacteria identified Cx Nom (U) Positive Abnormal [facility] Urine glucose detectionOrder ed By: Tejal Bassett on 04-25-2024 Glucose Ql (U) Normal mg/dl Normal [facility] Urine leukocyte esterase det ection by dipstickOrdered By: Tejal Bassett on 04-25-2024 Leukocyte esterase Test strip Ql (U) Negative Negative [facility] Urine pHOrdered By: Tejal marsh on 04-25-2024 pH (U) 5.0 [pH] 5.0 - 8.0 [facility] Urine sediment bacteria coun t by microscopy (number/high power field)Ordered By: Tejal Bassett on 04-25-2024 Bacteria LM.HPF (Urine sed) [#/Area] 0 /[HPF] None Seen [facility] Urine specific gravity measu rementOrdered By: Tejal Bassett on 04-25-2024 Specific gravity (U) [Rel density] 1.025 1.002-1.030 [facility] Urine urobilinogen measureme ntOrdered By: Tejal Bassett on 04-25-2024 Urobilinogen Ql (U) Normal mg/dl Normal [facility] White blood cell (WBC) count Ordered By: Tejal Bassett on 04-25-2024 WBC (Bld) [#/Vol] 6.6 10*3/uL 4.4-11.0 [facility] White blood cell countOrdere d By: Tejal Bassett on 04-25-2024 White blood cell count 0 SEEN /hpf 0-[address] [facility] Cerv Spine 2 or 3 Viewson Cerv Spine 2 or 3 Views [facility] Imaging Services [address] [place], [place] [id number] Cerv Spine 2 or 3 Views MR#: [id number] Acct: [id number] Name: JAI LUNA Rep #: [id number] : 1950 M 74 From: Toro Sanford PCP: Dr. Katy Faust MD Status: DEP AMB Study: Cerv Spine 2 or 3 Views Date of Exam: 04/21/24 Exam# [id number] Ordering Dr: Zaira De Jesus PROCEDURE: Cervical [...] CC: JANICE Barakat; Dr. Katy Faust MD Manager Metal: Signed Normal [facility] Orthopedic Visit Reporton Orthopedic Visit Report [facility] [address] [place] [address] OFFICE VISIT Date of Service: 04/21/24 MR#: [id number] Acct: [id number] Name: JAI LUNA Rep #: [id number] : 1950 Provider: Dr. Howard Siddiqui MD Age/Sex: 74/M Location: [facility] Status: Signed Intake Vital Signs 01/18/24 05:58 [...] 12/22/16) Essential hypertension 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 pectoris Hypoacusis Dyslipidemia [...] by me, Dr. Howard Siddiqui MD 04/21/24 7583. Part of today???s visit was documented by [...] of Care (more content not included)... Normal [facility] MR IAC W AND WO IV CONTRASTo n 03-27-2024 MR IAC W AND WO IV CONTRAST Interpreted By: Donato John, STUDY: MR IAC W AND WO IV CONTRAST; 03/27/2024 1:40 pm INDICATION: Signs/Symptoms:Yearly vestibular schwannoma surveillance. 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 MACRO: none Signed by: Donato John 03/27/2024 2:22 PM Dictation workstation: [id number] MMODAL Interpreted By: Donato John, STUDY: MR IAC W AND WO IV CONTRAST; 03/27/2024 1:40 pm INDICATION: Signs/Symptoms:Yearly vestibular schwannoma surveillance. 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) COMPARISON: March 2023 ACCESSION NUMBER(S): [id number] ORDERING CLINICIAN: GISELA CAN TECHNIQUE: The brain [...] nerves (Multi) COMPARISON: March 2023 ACCESSION NUMBER(S): [id number] ORDERING CLINICIAN: GISELA CAN TECHNIQUE: The brain [...] Donato John 03/27/2024 2:22 PM Dictation workstation: [id number] [facility] Work Phone: Radiology Study observation (narrative) [facility] Work Phone: MR Internal auditory canal W O and W contrast IVOrdered By: Donato John on 03-27-2024 [facility] Work Phone: Cerv Spine 2 or 3 Viewson Cerv Spine 2 or 3 Views [facility] Radiology [address] [place] [address] Cerv Spine 2 or 3 Views MR#: [id number] Acct: [id number] Name: JAI LUNA Rep #: [id number] : 1950 M 74 From: Reji Godoy MD PCP: Dr. Katy Faust MD Status: DEP AMB Study: Cerv Spine 2 or 3 Views Date of Exam: 03/02/24 Exam# [id number] Ordering Dr: Zaira De Jesus [id number] EXAM: XR CERVICAL SPINE, 2 OR 3 [...] CC: JANICE Barakat; Dr. Katy Faust MD Manager Metal: Signed Normal [facility] Orthopedic Visit Reporton Orthopedic Visit Report [facility] [address] [place] [address] [place] [address] OFFICE VISIT Date of Service: 03/02/24 MR#: [id number] Acct: [id number] Name: JAI LUNA Rep #: [id number] : 1950 Provider: JANICE Barakat Age/Sex: 74/M Location: [facility] [place] Status: Signed with Addenda ADDENDUM by JANICE [...] 12/22/16) Essential hypertension 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 pectoris Hypoacusis Dyslipidemia [...] Ortho Ex (more content not included)... Normal [facility] Upper Extremity Arterial Diogo dyon 02-25-2024 Upper Extremity Arterial Study [facility] Cardiovascular [place] [address] Upper Extremity Arterial Study 02/25/24 1258 MR#: [id number] Acct: [id number] Name: JAI LUNA Rep #: [id number] : 1950 74 From: Raghu Reynolds MD [...] Date Dictated: 02/25/24 1258 Date Transcribed: 02/28/24954 Manager Metal: Signed [facility] 02-14-2024 [facility] Telephone (INTMWS) JAI LUNA ([id number]) 1950 M Date Time Provider Department 02/14/24 [...] surgery in December [address]iddiqui [facility]. Advised patient to go to [facility] ER for evaluation. He said has no ride until his comes home, has one car. Patient said he would go to ER after comes home. Katy Faust MD 02/14/2024 7:55 PM Signed Noted. Katy Faust MD Allergies As of Date: 02/14/2024 Noted Allergy Reaction CAT CHELESA 02/27/2022 14 - Other: See Comments CLINDAMYCIN 03/28/2021 8 - GI Upset CODEINE 06/20/2007 8 - GI Upset Date Reviewed: 01/04/2024 Reviewed by: Norm Parker APRN.CUP MACHINE OPERATOR - Fully Assessed Reason for Visit: Patient [...] Status:Closed by KATY FAUST on 02/14/24 Normal [facility] Cerv Spine 2 or 3 Viewson Cerv Spine 2 or 3 Views [facility] Radiology [address] [place] [address] Cerv Spine 2 or 3 Views MR#: [id number] Acct: [id number] Name: JAI LUNA Rep #: [id number] : 1950 M 73 From: Jose Mars MD PCP: Dr. Katy Faust MD Status: DEP AMB Study: Cerv Spine 2 or 3 Views Date of Exam: 02/03/24 Exam# [id number] Ordering Dr: Zaira De Jesus [id number] STUDY: X-RAY - CERVICAL SPINE REASON FOR [...] 15:38 EST Reading Location ID and State: [facility] [place] , Service support , CC: JANICE Barakat; Dr. Katy Faust MD Manager Metal: Signed Normal [facility] Orthopedic Visit Reporton Orthopedic Visit Report [facility] [address] [place] [address] [address] [place] [address] OFFICE VISIT Date of Service: 02/03/24 MR#: [id number] Acct: [id number] Name: JAI LUNA Rep #: [id number] : 1950 Provider: Dr. Howard Siddiqui MD Age/Sex: 73/M Location: [facility] Status: Signed Intake Vital Signs 11/10/23 10:35 [...] 12/22/16) Essential hypertension 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 pectoris Hypoacusis Dyslipidemia [...] made by me, Dr. Howard Siddiqui MD 02/03/2450. Part of today???s visit was documented by [...] Ortho Exam (more content not included)... Normal [facility] Basic Metabolic Profile (BMP )on 01-19-2024 BUN/CRE 19.7 RATIO Normal - [facility] Comment on above: Performed By: #### L 500.2500, L100.0500 ####[facility] [address] [place], [address] CA,Total 8.6 mg/dL Normal 8.5-10.1 [facility] Comment on above: Performed By: #### L 500.2500, L100.0500 ####[facility] [address] [place], [address] Chloride [Moles/Vol] 106 mmol/L Normal 98-107 [facility] Comment on above: Performed By: #### L 500.2500, L100.0500 ####[facility] [address] [place], [address] CO2 [Moles/Vol] 23.0 mmol/L Normal 21.0-32.0 [facility] Comment on above: Performed By: #### L 500.2500, L100.0500 ####[facility] [address] [place], [address] Creatinine [Mass/Vol] 1.17 mg/dL Normal 0.70-1.30 [facility] Comment on above: Result Comment: The validity of the calculated GFR GFRAA in patients over 70 years has not been determined. Clinical correlation is essential. Performed By: #### L 500.2500, L100.0500 ####[facility] [address] [place], [address] ECRCL 57.81 ml/min Normal [facility] Comment on above: Performed By: #### L 500.2500, L100.0500 ####[facility] [address] [place], [address] EST GFR - AA 78 mL/min Normal >60 [facility] Comment on above: Result Comment: Afri can [place] GFR Calc Performed By: #### L 500.2500, L100.0500 ####[facility] [address] [place], [address] GAP 7 Normal 5-15 [facility] Comment on above: Performed By: #### L 500.2500, L100.0500 ####[facility] [address] [place], [address] GFR/1.73 sq M.predicted among non-blacks MDRD (S/P/Bld) [Vol rate/Area] 65 mL/min/{1.73_m2} Normal >60 [facility] Comment on above: Result Comment: Non- GFR Calc Performed By: #### L 500.2500, L100.0500 ####[facility] [address] [place], [address] Glucose [Mass/Vol] 151 mg/dL High 74-106 [facility] Comment on above: Result Comment: Fast ing Glucose result greater than or equal to 126 mg/dL suggests DIABETES MELLITUS per A.D.A. criteria. Performed By: #### L 500.2500, L100.0500 ####[facility] [address] [place], [address] Potassium [Moles/Vol] 4.0 mmol/L Normal 3.5-5.1 [facility] Comment on above: Performed By: #### L 500.2500, L100.0500 ####[facility] [address] [place], [address] Sodium [Moles/Vol] 136 mmol/L Normal 136-145 [facility] Comment on above: Performed By: #### L 500.2500, L100.0500 ####[facility] [address] [place], [address] Urea nitrogen [Mass/Vol] 23 mg/dL High 7-18 [facility] Comment on above: Performed By: #### L 500.2500, L100.0500 ####[facility] [address] [place], [address] CBC-Complete Blood Cnt No Di ffon 01-19-2024 Erythrocyte distribution width (RBC) [Ratio] 14.2 % Normal 11.6-14.6 [facility] Comment on above: Performed By: #### L 500.2500, L100.0500 ####[facility] [address] [place], [address] Hematocrit (Bld) [Volume fraction] 39.6 % Low 40-54 [facility] Comment on above: Performed By: #### L 500.2500, L100.0500 ####[facility] [address] [place], [address] Hemoglobin (Bld) [Mass/Vol] 12.8 g/dL Low 13.0-16.5 [facility] Comment on above: Performed By: #### L 500.2500, L100.0500 ####[facility] [address] [place], [address] MCH (RBC) [Entitic mass] 30.4 pg Normal 27.0-32.0 [facility] Comment on above: Performed By: #### L 500.2500, L100.0500 ####[facility] [address] [place], [address] MCHC (RBC) [Mass/Vol] 32.3 g/dL Normal 32-36 [facility] Comment on above: Performed By: #### L 500.2500, L100.0500 ####[facility] [address] [place], [address] MCV (RBC) [Entitic vol] 94.1 fL High 80-[address] [facility] Comment on above: Performed By: #### L 500.2500, L100.0500 ####[facility] [address] [place], [address] Platelet mean volume (Bld) [Entitic vol] 10.5 fL Normal 6.2-12.0 [facility] Comment on above: Performed By: #### L 500.2500, L100.0500 ####[facility] [address] [place], [address] Platelets (Bld) [#/Vol] 253 10*3/uL Normal 150-450 [facility] Comment on above: Performed By: #### L 500.2500, L100.0500 ####[facility] [address] [place], [address] RBC (Bld) [#/Vol] 4.21 10*6/uL Low 4.6-6.2 [facility] Comment on above: Performed By: #### L 500.2500, L100.0500 ####[facility] [address] [place], [address] RDW SD 48.7 fl High 35.1-43.9 [facility] Comment on above: Performed By: #### L 500.2500, L100.0500 ####[facility] [address] [place], [address] WBC (Bld) [#/Vol] 11.4 10*3/uL High 4.4-11.0 [facility] Comment on above: Performed By: #### L 500.2500, L100.0500 ####[facility] [address] [place], [address] Cerv Spine 2 or 3 Viewson Cerv Spine 2 or 3 Views [facility] Imaging Services [address] [place] [address] Cerv Spine 2 or 3 Views MR#: [id number] Acct: [id number] Name: JAI LUNA Rep #: [id number] : 1950 M 73 From: Leno hardin MD PCP: Dr. Katy Faust MD Status: ADM RUDDY Study: Cerv Spine 2 or 3 Views Date of Exam: 01/19/24 Exam# [id number] Ordering Dr: Zaira De Jesus [id number] STUDY: X-RAY - CERVICAL SPINE REASON FOR [...] EST Reading Location ID and State: [address] [place] [address] , Service support , CC: JANICE Barakat; Dr. Katy Faust MD Manager Metal: Signed Normal [facility] Bedside Glucoseon 01-18-2024 FINGERSTICK GLU 86 mg/dL Normal 74-106 [facility] Comment on above: Result Comment: ZENA GEMENT OF PATIENT CARE PER NURSING PROTOCOL Performed By: #### L 500.2500, L100.0100 #### [facility] Laboratory [address] [place], [address] Cerv Spine 2 or 3 Viewson Cerv Spine 2 or 3 Views [facility] Imaging Services [address] [place] [address] Cerv Spine 2 or 3 Views MR#: [id number] Acct: [id number] Name: JAI LUNA Rep #: [id number] : 1950 M 73 From: Jonathan Kwan PCP: Dr. Katy Faust MD Status: ADM IN Study: Cerv Spine 2 or 3 Views Date of Exam: 01/18/24 Exam# [id number] Ordering Dr: Howard Siddiqui MD [id number] INDICATION: ERAS, ANTERIOR CERVICAL DISC FUSION C5-C6 [...] Howard Siddiqui MD; Dr. Katy Faust MD Manager Metal: Signed Normal [facility] MR/POSTOP.ANEon 01-18-2024 MR/POSTOP.[facility] Medical Records Department [address] [place] [address] Anesthesia Postop Eval I 01/18/24 1031 MR#: [id number] Acct: [id number] Name: JAI LUNA Rep #: [id number] : 1950 73 From: Carmina Guadarrama PCP: Dr. Katy Faust MD Status:REG SDC Y Race: C Location: [place] [address] Anesthesia: Postop Eval I Current Vital Signs [...] Carmina Briones Signature: Date CC: Signed Normal [facility] MR/YTVKPHEN1dt 01-18-2024 [facility] Medical Records Department [address] [place] [address] Anesthesia Postop Eval II 01/18/24 1556 MR#: [id number] Acct: [id number] Name: JAI LUNA Rep #: [id number] : 1950 73 From: Dexter Wheeler MD PCP: Dr. Katy Faust MD Status:ADM RUDDY Y Race: C Location: Anesthesia Postop Eval I Sum Postop Eval Completion status Anesthesia document: Postop Eval 1 completed: Yes Anesthesia Postop Eval I Summary Anesthesia Postop Eval I Summary: Anesthesia Postop Eval I: Assessment Summary Airway patent Yes 01/18/24 10:32 [employer].GDOTT Spontaneous unlabored Yes 01/18/24 10:32 [employer].GDOTT respirations Mental status Awake,Calm 01/18/24 10:32 [employer].GDOTT nausea No 01/18/24 10:32 [employer].GDOTT Vomiting No 01/18/24 10:32 [employer].GDOTT Anesthesia Postop Eval I: Fluid Summary Crystalloid volume administer 1,100 01/18/24 10:32 HE[employer] TRE[employer].GDOTT (ml) Colloids volume administered ( ml) Blood Product volume administered (ml) Total IV fluid infused 1,100 01/18/24 10:32 [employer].GDOTT Anesthesia Postop Eval I: Summary Notes Anesthesia Complication No 01/18/24 10:32 [employer]RE[employer].GDOTT Anesthesia Complication Comment: Post-operative progress note Anesthesia: Postop Eval II Evaluation Mental status: Awake and Calm Pain Level: 1 nausea: No Vomiting: No Complications Anesthesia Complication: No 01/18/24 1557 Date Dexter Wheeler MD Cosigner Signature: Date CC: Signed Normal [facility] Operative Reporton 4 Operative Report [facility] Medical Records Department [address] [place] [address] Operative Report 01/18/24 1004 MR#: [id number] Acct: [id number] Name: LUNA,JAI M Rep #: [id number] : 1950 73 From: Howard Siddiqui MD PCP: Dr. Katy Faust MD Status:[facility] Location: [place] [address] Operative Report (Standard) Operative Information Surgery/Procedure Performed: C5-7 anterior cervical discectomy and fusion Surgeon: Howard Siddiqui Date of Procedure: 01/18/24 Procedure Start Time: 08:09 Procedure Stop Time: 10:15 Pre-Operative Diagnosis: C5-7 disc degeneration with stenosis, radiculopathy Post-Operative Diagnosis: Same Select all DRAINS/GRAFTS/IMPLANT S that apply: Drains Drain details: [place] , Graft Graft details: Structural allograft cortical cancellous strut, DBX and Implanted device Implanted device details: Medtronic [place] Elite anterior cervical plate instrumentation Type of Anesthesia: General Estimated Blood Loss: 30 cc Specimen collected: No Description of surgery: Preoperative diagnosis: C5-7 disc degeneration with stenosis, radiculopathy Postoperative diagnosis: Same Name of procedure: C5-7 anterior cervical discectomy and fusion with plate instrumentation - Anterior cervical fusion C5-6, CPT code 47096 - Anterior plate instrumentation C5-7, CPT code 97178/59 - Anterior cervical fusion C6-7, CPT code 70548/51 -C5-6 structural allograft bone with DBX, CPT code 27685 -C6-7 structural allograft bone with DBX, CPT code 32887 Attending surgeon: Howard Siddiqui M.D. Anesthesia: Gen. endotracheal Estimated blood loss: 30 mL Complications: None Instrumentation used: Medtronic [place] Elite plate, LASR corticocancellous block Indications: The [...] Disc fragments were removed with the pituitary. [place] pins were placed in C5 and C6 [...] good pullout strength. A 40 mm Medtronic [place] Elite plate was then fixed to C5-7 with 16 mm screws. A lateral x-ray was then taken to check the length of the screws. Both AP an (more content not included)... Normal [facility] Orthopedic Visit Reporton Orthopedic Visit Report [facility] [address] [place] [address] [address] [place] [address] OFFICE VISIT Date of Service: 01/11/24 MR#: [id number] Acct: [id number] Name: JAI LUNA Rep #: [id number] : 1950 Provider: Dr. Howard Siddiqui MD Age/Sex: 73/M Location: [facility] Status: Signed Intake Vital Signs 11/10/23 10:35 [...] 12/22/16) Essential hypertension 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 pectoris Hypoacusis Dyslipidemia [...] she did (more content not included)... Normal [facility] Hepatitis A AB, Totalon HEPATITIS A,TOT Negative Normal Negative [facility] Comment on above: Result Comment: Comm ent: The HAV total antibody assay detects both IgG and IgM but does not differentiate between them. A negative result suggests susceptibility to infection. A positive result could be due to vaccination, previously resolved infection or active infection. Testing for HAV IgM should be performed if active HAV infection is suspected. [employer] offers profiles that will automatically reflex positive HAV total antibody results to IgM (e.g., panel #[id number] HAV Antibody w/ Rfx). Performed at: [address] [id number] [employer]: Will Stockton PhD, Phone: [phone] Performed By: #### L 100.0100, M100.651, L3890.6005, L3890.6300, BTSPAT, L3890.6200, L3100.0300 ####[facility] [address] [place], [place], [address] MRSA/SAID NASAL SCREENon MRSA+SAID SCRN Reason for Exam: PRE-OP MRSA MRSA Negative S. AUREUS S. aureus Negative * This is an amended result. * A prior result that was reported as final has been changed. 01/06/24 1402 by CHELA Previously reported as: POSITIVE Normal [facility] Comment on above: Performed By: #### L 100.0100, M100.651, L3890.6005, L3890.6300, BTSPAT, L3890.6200, L3100.0300 ####[facility] [address] [place], [address] 12 Lead EKGon 01-05-2024 12 Lead EKG [facility] Cardiovascular Services [address] [place] [address] 12 Lead EKG 01/05/24 0654 MR#: [id number] Acct: [id number] Name: JAI LUNA Rep #: [id number] : 1950 73 From: Winter Foy MD Attending Dr: Dr. Howard Siddiqui MD Status: PRE [facility] Ordering Dr: Howard Siddiqui MD Date: 01/05/24 Location: [facility] Sex: M C Admitted: Test Reason : PREOP Blood Pressure : */* mmHG Vent. Rate : 61 BPM Atrial Rate : 61 BPM P-R Int : 162 ms QRS Dur : 120 ms QT Int : 452 ms P-R-T Axes : 21 10 42 degrees QTcB Int : 455 ms Normal sinus rhythm Right bundle branch block Abnormal ECG Confirmed by Winter Foy ([id number]), editor farm journal DEBORAH ELLSWORTH ([id number]) on 01/05/2024 1:10:02 PM Referred By: Howard Siddiqui Confirmed By: Winter Foy 01/05/24 1310 Date Winter Foy MD CC: Dr. Howard Siddiqui MD; Dr. Katy Faust MD Signed Normal [facility] CBC W/Diff, Automatedon 11-0 Absolute Lymph 1.71 X10 3/uL Normal 0.83-4.51 [facility] Comment on above: Performed By: #### L 100.0100, M100.651, L3890.6005, L3890.6300, BTSPAT, L3890.6200, L3100.0300 #### [facility] Laboratory [address] [place], [address] Absolute Neut 3.9 X10 3/uL Normal 2.0-7.7 [facility] Comment on above: Performed By: #### L 100.0100, M100.651, L3890.6005, L3890.6300, BTSPAT, L3890.6200, L3100.0300 #### [facility] [address] [place], [address] Basophils/100 WBC (Bld) 0.9 % Normal 0-[address] [facility] Comment on above: Performed By: #### L 100.0100, M100.651, L3890.6005, L3890.6300, BTSPAT, L3890.6200, L3100.0300 #### [facility] [address] [place], [address] Eosinophils/100 WBC (Bld) 6.4 % High 0-5 [facility] Comment on above: Performed By: #### L 100.0100, M100.651, L3890.6005, L3890.6300, BTSPAT, L3890.6200, L3100.0300 #### [facility] [address] [place], [address] Erythrocyte distribution width (RBC) [Ratio] 14.2 % Normal 11.6-14.6 [facility] Comment on above: Performed By: #### L 100.0100, M100.651, L3890.6005, L3890.6300, BTSPAT, L3890.6200, L3100.0300 #### [facility] [address] [place], [address] Hematocrit (Bld) [Volume fraction] 41.0 % Normal 40-54 [facility] Comment on above: Performed By: #### L 100.0100, M100.651, L3890.6005, L3890.6300, BTSPAT, L3890.6200, L3100.0300 #### [facility] [address] [place], [address] Hemoglobin (Bld) [Mass/Vol] 13.3 g/dL Normal 13.0-16.5 [facility] Comment on above: Performed By: #### L 100.0100, M100.651, L3890.6005, L3890.6300, BTSPAT, L3890.6200, L3100.0300 #### [facility] [address] [place], [address] IG% 0.400 Normal 0.0-0.9 [facility] Comment on above: Result Comment: IG% - Immature Granulocytes (promyelocytes, myelocytes and metamyelocytes) > 1% indicates that a LEFT SHIFT is Present. Performed By: #### L 100.0100, M100.651, L3890.6005, L3890.6300, BTSPAT, L3890.6200, L3100.0300 #### [facility] [address] [place], [address] Lymphocytes/100 WBC (Bld) 24.7 % Normal 19-41 [facility] Comment on above: Performed By: #### L 100.0100, M100.651, L3890.6005, L3890.6300, BTSPAT, L3890.6200, L3100.0300 #### [facility] [address] [place], [address] MCH (RBC) [Entitic mass] 31.2 pg Normal 27.0-32.0 [facility] Comment on above: Performed By: #### L 100.0100, M100.651, L3890.6005, L3890.6300, BTSPAT, L3890.6200, L3100.0300 #### [facility] [address] [place], [address] MCHC (RBC) [Mass/Vol] 32.4 g/dL Normal 32-36 [facility] Comment on above: Performed By: #### L 100.0100, M100.651, L3890.6005, L3890.6300, BTSPAT, L3890.6200, L3100.0300 #### [facility] [address] [place], [address] MCV (RBC) [Entitic vol] 96.2 fL High 80-[address] [facility] Comment on above: Performed By: #### L 100.0100, M100.651, L3890.6005, L3890.6300, BTSPAT, L3890.6200, L3100.0300 #### [facility] [address] [place], [address] Monocytes/100 WBC (Bld) 10.6 % High 0-[address] [facility] Comment on above: Performed By: #### L 100.0100, M100.651, L3890.6005, L3890.6300, BTSPAT, L3890.6200, L3100.0300 #### [facility] [address] [place], [address] Neutrophils/100 WBC (Bld) 57.0 % Normal 47-70 [facility] Comment on above: Performed By: #### L 100.0100, M100.651, L3890.6005, L3890.6300, BTSPAT, L3890.6200, L3100.0300 #### [facility] [address] [place], [address] Nucleated RBC (Bld) [#/Vol] 0 10*3/uL Normal 0-5 [facility] Comment on above: Performed By: #### L 100.0100, M100.651, L3890.6005, L3890.6300, BTSPAT, L3890.6200, L3100.0300 #### [facility] [address] [place], [address] Platelet mean volume (Bld) [Entitic vol] 10.5 fL Normal 6.2-12.0 [facility] Comment on above: Performed By: #### L 100.0100, M100.651, L3890.6005, L3890.6300, BTSPAT, L3890.6200, L3100.0300 #### [facility] [address] [place], [address] Platelets (Bld) [#/Vol] 231 10*3/uL Normal 150-450 [facility] Comment on above: Performed By: #### L 100.0100, M100.651, L3890.6005, L3890.6300, BTSPAT, L3890.6200, L3100.0300 #### [facility] [address] [place], [address] RBC (Bld) [#/Vol] 4.26 10*6/uL Low 4.6-6.2 [facility] Comment on above: Performed By: #### L 100.0100, M100.651, L3890.6005, L3890.6300, BTSPAT, L3890.6200, L3100.0300 #### [facility] [address] [place], [address] RDW SD 50.4 fl High 35.1-43.9 [facility] Comment on above: Performed By: #### L 100.0100, M100.651, L3890.6005, L3890.6300, BTSPAT, L3890.6200, L3100.0300 #### [facility] [address] [place], [address] WBC (Bld) [#/Vol] 6.9 10*3/uL Normal 4.4-11.0 [facility] Comment on above: Performed By: #### L 100.0100, M100.651, L3890.6005, L3890.6300, BTSPAT, L3890.6200, L3100.0300 #### [facility] [address] [place], [address] HIV - WCHon 01-05-2024 HIV Non-Reactive Normal Nonreactive [facility] Comment on above: Order Comment: Reaso n for Exam: PAT Performed By: #### L 100.0100, M100.651, L3890.6005, L3890.6300, BTSPAT, L3890.6200, L3100.0300 ####[facility] [address] [place], [address] Hepatitis B Surface Antibody on 01-05-2024 HEP B Surf Ab Reactive Normal [facility] Comment on above: Order Comment: Reaso n for Exam: PAT Result Comment: Non Reactive: Inconsistent with immunity less than <10 mIU/mL Reactive: Consistent with immunity greater than or equal to 10 mIU/mL Performed By: #### L 100.0100, M100.651, L3890.6005, L3890.6300, BTSPAT, L3890.6200, L3100.0300 ####[facility] [address] [place], [place], [phone] Hepatitis C Antibodyon 01-04 Hepatitis C AB Non-Reactive Normal Nonreactive [facility] Comment on above: Order Comment: Reaso n for Exam: PAT Result Comment: Non Reactive: < 0.8 Equivocal: >/= 0.8 to < 1.0 Reactive: >/= 1.0 The CDC requires that a reactive/equivocal HCV antibody result be sent out for confirmation. HCV Quant by PCR testing. Performed By: #### L 100.0100, M100.651, L3890.6005, L3890.6300, BTSPAT, L3890.6200, L3100.0300 ####[facility] [address] [place], [address] Magnesiumon 01-05-2024 Magnesium [Mass/Vol] 2.3 mg/dL Normal 1.6-2.6 [facility] Comment on above: Performed By: #### L 501.5200 #### [facility] [address] [place], [address] Type AND Screen - PAT ONLYon 01-05-2024 ABO and Rh group Nom (Bld) Blood group B Rh(D) positive Normal [facility] Comment on above: Order Comment: Surge ry Date: 01/18/24 Reason for Laboratory Test PRE-OP [id number] No N N S ERAS, Anterior Cervical Disc Fusion C5-6 and C6-7 Performed By: #### L 100.0100, M100.651, L3890.6005, L3890.6300, BTSPAT, L3890.6200, L3100.0300 #### [facility] [address] [place], [address] CNOVon 01-04-2024 CNOV Office Visit (INTMWS ) JAI LUNA ([id number]) 1950 M Date Time Provider Department 01/04/24 2:40 PM NORM PARKER INTMWS During your visit today, we recorded the following information about you: Pulse Blood pressure Weight Height 64/minute 136/74 85.9 kg 1.645 m Norm Parker APRN.CUP MACHINE OPERATOR 01/05/2024 3:29 PM Addendum SUBJECTIVE Jai Luna [...] done on 01/18/[address] Siddiqui at [facility]. History of having anesthesia: Yes. Any [...] recent sickness. No history of CVA or HI. Sees [facility], had a stress test yesterday. [...] Embolism - 09/22/2023 Pvd (Peripheral Vascular Disease) ([facility]) - 09/22/2023 History of Dvt (Deep Vein Thrombosis) - 09/22/2023 Acute Deep Vein Thrombosis (Dvt) of Proximal Vein of Left Lower Extremity ([facility]) - 07/21/2022 Pulmonary Embolism and Infarction ([facility]) - 03/02/2022 Pulmonary Embolism ([facility]) - 02/13/2022 Hypokalemia - 02/10/2022 Urinary Retention - [address] ([facility]) - 01/28/2022 Rectal Cancer ([facility]) - 01/27/2022 Rectal Malignant Neoplasm ([facility]) - 05/29/2021 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 Normal [facility] Office Visiton 07-14-2023 Follow-up visit [id number] Silvio Luna 1950 M Date Provider Department Center 07/14/2023 [id number] None Family History Family Status - Relation Status Age at Mother Father Level of Service:[address] [place] OFFICE/OUTPATIENT NEW HIGH MDM 60 MINUTES Reason for Visit and Comments: New Patient [542] - Evaluation for second opinion for ongoing rectal bleeding since sx, s/p - robotic asst lap LAR w/ intraoperative angiogram w/ diverting loop ileostomy 01/27/[address] Cheung h/o of rectal squamos cell cancer diagnosed in 04/2021, h/o of chemothearpy OTHER [Other] - Pt accompanied by [facility] PATINSon 07-14-2023 PATINS - Recommendation is to identify the source of your rectal bleeding - Follow-up with Urology to evaluate for a fistula connection to the urethra - Further surgical intervention is recommended to be pursued with Dr. Cheung or through the [facility] given the complexity of your case. Further work-up prior to surgery should be performed through the [facility] as any further surgical intervention would be recommended through this institution. [facility] Progress Noteon 07-14-2023 Progress Note [...] Reports passing urine when ejaculating since surgery. [facility] Progress Note COLORECTAL SURGERY OFFICE [...] Medical History: Diagnosis Date Rectal cancer (CMS/HCC) ([facility]) S/P triple vessel bypass Past [...] friable, bleeding mucosa Exam chaperoned by female school bus driver/teacher assistant. ASSESSMENT/PLAN: Diagnosis Plan 1. Rectal bleeding [...] further work-up/surgical intervention . Sabrina Muñiz MD [facility] [place] [address], [address] [place], [place] [address] p [phone] f [phone] Normal [facility] Absolute lymphocyte countOrd ered By: Raghu Reynolds on 07-08-2023 Lymphocytes Auto (Unsp spec) [#/Vol] 1.22 10*3/uL 0.83-4.51 [facility] Automated lymphocyte count a s percentage of total leukocytesOrdered By: Raghu Reynolds on 07-08-2023 Lymphocytes/100 WBC Auto (Unsp spec) 21.1 % 19-41 [facility] Basophil percentageOrdered B y: Raghu Reynolds on 07-08-2023 Basophils/100 WBC (Bld) 1.0 % 0-[address] [facility] Chloride [Moles/Vol] 115 mmol/L 98-107 [facility] Eosinophils/100 WBC (Bld) 5.2 % 0-5 [facility] Glucose [Mass/Vol] 99 mg/dL 74-106 [facility] Hemoglobin (Bld) [Mass/Vol] 12.9 g/dL 13.0-16.5 [facility] Monocytes/100 WBC (Bld) 11.3 % 0-[address] [facility] Neutrophils (Bld) [#/Vol] 3.5 10*3/uL 2.0-7.7 [facility] Neutrophils/100 WBC (Bld) 61.1 % 47-70 [facility] Potassium [Moles/Vol] 3.9 mmol/L 3.5-5.1 [facility] Sodium [Moles/Vol] 142 mmol/L 136-145 [facility] WBC (Bld) [#/Vol] 5.8 10*3/uL 4.4-11.0 [facility] Determination of erythrocyte mean corpuscular volume (MCV)Ordered By: Raghu Reynolds on 07-08-2023 MCV (RBC) [Entitic vol] 98.3 fL 80-[address] [facility] Erythrocyte distribution wid th ratioOrdered By: Raghu Reynolds on 07-08-2023 Erythrocyte distribution width (RBC) [Ratio] 14.2 % 11.6-14.6 [facility] Erythrocyte distribution wid th standard deviationOrdered By: Raghu Reynolds on 07-08-2023 Erythrocyte distribution width (RBC) [Entitic vol] 51.8 fL 35.1-43.9 [facility] Hematocrit Auto (Bld) [Volum e fraction]Ordered By: Raghu Reynolds on 07-08-2023 Hematocrit (Bld) [Volume fraction] 40.7 % 40-54 [facility] Immature granulocytes/100 WB C Auto (Bld)Ordered By: Raghu Reynolds on 07-08-2023 Immature granulocytes/100 WBC (Bld) 0.300 % 0.0-0.9 [facility] Comment on above: IG% - Immature Granu locytes (promyelocytes, myelocytes and metamyelocytes) > 1% indicates that a LEFT SHIFT is Present. Laboratory - Chemistry and C hemistry - challengeOrdered By: Raghu Reynolds on 07-08-2023 CO2 [Moles/Vol] 24.0 mmol/L 21.0-32.0 [facility] Urea nitrogen/Creatinine [Mass ratio] 14.4 mg/mg 10-20 [facility] Laboratory - Hematology and Cell countsOrdered By: Raghu Reynolds on 07-08-2023 MCH (RBC) [Entitic mass] 31.2 pg 27.0-32.0 [facility] MCHC (RBC) [Mass/Vol] 31.7 g/dL 32-36 [facility] Nucleated RBC/100 WBC (Bld) [Ratio] 0 % 0-5 [facility] Platelet mean volume (Bld) [Entitic vol] 9.9 fL 6.2-12.0 [facility] Platelets (Bld) [#/Vol] 236 10*3/uL 150-450 [facility] No Panel InformationOrdered By: Raghu Reynolds on 07-08-2023 Estimated Creatinine Clearance Calc 51.03 ml/min [facility] Estimated GFR (MDRD) Amer 68 mL/min >60 [facility] Comment on above: GFR Calc Estimated GFR (MDRD) Non-Af Amer 56 mL/min >60 [facility] Comment on above: Non- GFR Calc RBC Auto (Bld) [#/Vol]Ordere d By: Raghu Reynolds on 07-08-2023 RBC (Bld) [#/Vol] 4.14 10*6/uL 4.6-6.2 [facility] Serum or plasma calcium shae urement (mass/volume)Ordered By: Raghu Reynolds on 07-08-2023 Calcium [Mass/Vol] 8.6 mg/dL 8.5-10.1 [facility] Serum or plasma creatinine m easurement (mass/volume)Ordered By: Raghu Reynolds on 07-08-2023 Creatinine [Mass/Vol] 1.32 mg/dL 0.70-1.30 [facility] Comment on above: The validity of the calculated GFR & GFRAA in patients over 70 years has not been determined. Clinical correlation is essential. Serum or plasma urea nitroge n measurement (mass/volume)Ordered By: Raghu Pottsey on 07-08-2023 Urea nitrogen [Mass/Vol] 19 mg/dL 7-18 [facility] Thin prep Papanicolaou smear with manual screeningOrdered By: Raghu Gail on 07-08-2023 Thin prep Papanicolaou smear with manual screening 3 - [facility] 36on 06-16-2023 36 Spoke with patient scheduled for 07/14/23 @ 1:[address] Muñiz, pt verbalized understanding of appt date/time. Patient verbalized understanding of recommendation. Per Diana at Dr. Cheung office, patient was last seen in 05/20/2022, and will be faxing over notes. [facility] 36on 06-15-[address] Muñiz, please schedule next available appointment. Per Dr. Muñiz if symptoms worsen patient is to contact Dr. Cheung or go to the nearest ED for further evaluation. Per Dr. Muñiz request recent OV with Dr. Cheung for further review. [address] 06-11-[address] Bray office, they will be faxing patient records. [place] [address] Spoke with patient, per patient requesting to schedule appointment with Dr. Muñiz for second opinion. Per patient states he has an ileostomy, states output is good, no issues. Per patient concern is the rectal bleeding that has been going on since his surgery w/ Dr. Cheung at [facility]. Per our drug abuse resistance education officer, we will review with Dr. Muñiz for appointment once we have records. If patient is bleeding profusely and feeling unwell patient should go to ED for further evaluation. Patient verbalized understanding. [place] [id number] Patient submitted online appointment request, please call to discuss/schedule. FirstName : Jai LastName : Luna Pronouns : Other (please specify) PronounsOther : Email : [email or web address] Phone : [phone] Birthdate : 1950 12:00:00 AM BestTimeToCallBack : Any AppointmentDate : As soon as possible. PhysicianRequested : Dr. Sabrina Muñiz MD Symptoms : Bleeding 16 months after rectal cancer surgery on January 27, 2022. OptIn : False Normal [facility] MR IAC W AND WO IV CONTRASTo n 03-24-2023 MR IAC W AND WO IV CONTRAST Interpreted By: Toro Newman, STUDY: MR IAC W AND WO IV CONTRAST; 03/24/2023 2:41 pm INDICATION: Signs/Symptoms:acoust ic neuroma. COMPARISON: MRI IAC dated 02/10/2021. ACCESSION NUMBER(S): [id number] ORDERING CLINICIAN: GISELA CAN TECHNIQUE: Standard multiplanar [...] Toro Newman 03/24/2023 3:32 PM Dictation workstation: [id number] [facility] MR Internal auditory canal W O [...] Toro Newman 03/24/2023 3:32 PM Dictation workstation: [id number] Interpreted By: Toro Newman, STUDY: MR IAC W AND WO IV CONTRAST; 03/24/2023 2:41 pm INDICATION: Signs/Symptoms:acoust ic neuroma. COMPARISON: MRI IAC dated 02/10/2021. ACCESSION NUMBER(S): [id number] ORDERING CLINICIAN: GISELA CAN TECHNIQUE: Standard multiplanar [...] COMPARISON: MRI IAC dated 02/10/2021. ACCESSION NUMBER(S): [id number] ORDERING CLINICIAN: GISELA CAN TECHNIQUE: Standard multiplanar [...] Toro Newman 03/24/2023 3:32 PM Dictation workstation: [id number] [facility] Work Phone: Radiology Study observation (narrative) [facility] Work Phone: MR Internal auditory canal W O and W contrast IVOrdered By: Toro Newman on 03-24-2023 [facility] Work Phone: SURGICAL PATHOLOGYon 023 Case Report Surgical Pathology Report Case: [id number] Authorizing Provider: Justin William MD Collected: 12/03/2022 11:49 AM Ordering Location: [facility] Received: 12/03/2022 01:29 PM Pathologist: Alice Young MD Specimen: DEVICE [facility] Clinical History IVC filter [facility] FINAL DIAGNOSIS A. Inferior vena cava, hardware removal: - Vascular filter (gross examination only). CT/AKA 12/04/22 12:56 PM [facility] Gross Description A. DEVICE Received in [...] 2022 10:37 AM Gross examination performed at [facility], [facility] [address] Performing Lab Diagnostic interpretation performed at [facility], [facility] [place] [address] CLIA# [id number] Hydrology Technician: Torey Walker M.D. [facility] BRIEF OP NOTon 12-03-2022 BRIEF OP NOT HNO ID: [id number] Author: Justin William MD Service: ? Author Type: Physician Type: Brief Op Note Filed: 12/03/2022 11:46 AM Note Text: BRIEF OPERATIVE / PROCEDURE NOTE LOG ID: [id number] SURGERY/PROCEDURE DATE: 12/03/2022 INCISION/PROCEDURE START TIME: 11:24 AM INCISION CLOSE/PROCEDURE END TIME: 11:37 AM SURGEON(S)/PROCEDURAL IST(S) AND SPECIAL EQUIPMENT TECHNICIAN(S): Surgeon(s) and Role: * Justin William MD [...] DATE: December 03, 2022 TIME: 11:45 AM [facility] HISTORY PHYSICALon HISTORY PHYSICAL HNO ID: [id number] Author: Justin William MD Service: ? Author [...] Coronary atherosclerosis of unspecified type of vessel, platinum or graft Coronary artery disease Diverticulosis of [...] PROSTATE SURGERY HX STRABISMUS RECESSION[facility]CJ [facility] Strabismus surgery TONSILLECTOMY HX [...] mouth daily at bedtime. For cholesterol per [facility]. coenzyme Q10 (COENZYME Q-10) 100 [...] DATE: December 03, 2022 TIME: 11:15 AM [facility] IR INFERIOR CAVA VENOGRAMon 12-03-2022 [...] was advanced. Retrieval sheath size(s): 11 F Appy Pie retrieval sheath The filter was captured, collapsed into the sheath, and removed in its entirety. Filter capture technique: Standard technique, employing the loop snare included in the filter retrieval kit Post-retrieval venography Post-retrieval venography of the IVC was performed. IVC patency post: Patent Additional findings: None Additional Details Additional description of proced (more content not included)... Normal [facility] IR INFERIOR CAVA VENOGRAM (A V,FV,CHRISTIAN,MM,UN)on 12-03-2022 [facility] PT panel Coag (PPP)on 2022 INR Coag (PPP) [Relative time] 1.0 {INR} Normal 0.9-1.3 [facility] Comment on above: Order Comment: Speci men Type: BLOOD SPECIMEN Ordering Facility: [facility] Address: [address] [place] [address] [place] [address] Result Comment: Paulina min K Antagonist (VKA) Therapeutic Range: INR 2 to 3 (Target INR of 2.5) Note: For patients treated with VKA drugs, such as warfarin, the [place] [employer] 2012 Guideline recommends [...] 2012, 141:7S-47S Jose E SOLIS et al. [facility] 2017, 70: 252-289 Performed By: #### 3 4528-0 #### [facility] CLIA [id number] [address] [place] [facility] PT Coag (PPP) [Time] 10.9 s Normal 9.7-13.0 [facility] Comment on above: Order Comment: Howard pollard Type: BLOOD SPECIMEN Ordering Facility: [facility] Address: [address] [place] [address] Result Comment[facility] Performed By: #### 3 4528-0 #### [facility] CLIA [id number] [address] [place] INR Coag (PPP) [Relative time] 1.0 {INR} 0.9 - 1.3 [facility] PT Coag (PPP) [Time] 10.9 s 9.7 - 1 3.0 sec [facility] SURGICAL PATHOLOGYon 023 CASE REPORT Normal [facility] Comment on above: Order Comment: [place] Type: TISSUE SPECIMEN Ordering Facility: [facility] Address: [address] [place] [address] Result Comment: Surg ical Pathology Report Case: [id number] Authorizing Provider: Justin William MD Collected: 12/03/2022 11:49 AM Ordering Location: [facility] Received: 12/03/2022 01:29 PM Pathologist: Alice Young MD Specimen: DEVICE Performed By: #### S #### [facility] CLIA [id number] [address] [place] [address] [place] CLINICAL HISTORY IVC filter Normal [facility] Comment on above: Order Comment: Speci men Type: TISSUE SPECIMEN Ordering Facility: [facility] Address: [address] [place] [address] Performed By: #### S #### [facility] CLIA [id number] [address] [place] [address] [place] FINAL DIAGNOSIS Normal [facility] Comment on above: Order Comment: Speci men Type: TISSUE SPECIMEN Ordering Facility: [facility] Address: [address] [place] [address] Result Comment: A. I nferior vena cava, hardware removal: - Vascular filter (gross examination only). CT/AKA 12/04/22 12:56 PM Performed By: #### S #### [facility] CLIA [id number] [address] [place] [address] [place] FINAL PERFORMING LAB Normal [facility] Comment on above: Order Comment: Speci men Type: TISSUE SPECIMEN Ordering Facility: [facility] Address: [address] [place] [address] Result Comment: Diag nostic interpretation performed at [facility], [address] [place] [address] CLIA# [id number] Hydrology Technician: Torey Walker M.D. Performed By: #### S #### [facility] CLIA [id number] [address] [place] [address] [place] GROSS DESCRIPTION A. DEVICE Normal [facility] Comment on above: Order Comment: Speci men Type: TISSUE SPECIMEN Ordering Facility: [facility] Address: [address] [place] [address] Result Comment: Rece ived in formalin, labeled [...] 2022 10:37 AM Gross examination performed at [facility], [address] [place] [address], [place] [address] Performed By: #### S #### [facility] CLIA [id number] [address] [place] [address] [id number] Ayala 11-27-2022 BR[place] Telephone (MEX[place]) JAI LUNA ([id number]) 1950 M Date Time Provider Department 11/27/22 REBECCA YEH During your visit today, we recorded the following information about you: Rebecca Yeh RN 11/27/2022 2:47 PM Signed You are scheduled for a IVC Filter Removal, On 12/03/2022. You are to arrive at 0900 am for a 1030 procedure time and Report to [facility]: Entrance A, Elevators to first floor, [...] 1.5 or less for day of procedure. Casino Runner/Transportation : How will you be arriving for your procedure? Private car. You will need a responsible adult to accompany you to and from the procedure. Your pile driver operator is required to stay with you until you are taken into the procedure room. Please call with any questions [phone] opt 2 to speak with the Radiology Nurses Allergies As of Date: 11/27/2022 Noted Allergy Reaction CAT DANDER 02/27/2022 14 - Other: See Comments CLINDAMYCIN 03/28/2021 8 - GI Upset CODEINE 06/20/2007 8 - GI Upset Date Reviewed: 11/03/2022 Reviewed by: Maddison Kohler RN - Fully Assessed Reason for Visit: Radiology Pre Procedure Instructions [5786] Prescriptions as of 11/27/2022 - warfarin (COUMADIN) [...] Encounter Status:Closed by REBECCA YEH on 11/27/22 [facility] HBV surface Ab Ql (S)on 04-30 HBV surface Ab Qn (S) >=12.0 0 mIU/mL [facility] HEP B SURF ABon 05-20-2022 HBV surface Ab Ql (S) Positive Positive [facility] HEP B SURF AG SCRNon 023 HBV surface Ag Ql (S) Negative Negative [facility] XR COLON SINGLE CONTRASTon 0 05-20-2022 [facility] POTASSIUM BLDon 04-07-2022 Potassium [Moles/Vol] 5.3 mmol/L High 3.7 - 5.1 mmol/L [facility] CBC panel Auto (Bld)on 04-06 Erythrocyte distribution width (RBC) [Ratio] 17.0 % High 11.5 - 15.0 % [facility] Hematocrit (Bld) [Volume fraction] 43.2 % 39.0 - 51.0 % [facility] Hemoglobin (Bld) [Mass/Vol] 13.3 g/dL 13.0 - 17.0 g/dL [facility] MCH (RBC) [Entitic mass] 31.4 pg 26. 0 - 34.0 pg [facility] MCHC (RBC) [Mass/Vol] 30.8 g/dL 30.5 - 36.0 g/dL [facility] MCV (RBC) [Entitic vol] 101.9 fL High 80.0 - 100.0 fL [facility] Nucleated RBC (Bld) [#/Vol] <0.01 k/uL [facility] Platelet mean volume (Bld) [Entitic vol] 10.0 fL 9.0 - 12.7 fL [facility] Platelets (Bld) [#/Vol] 478 10*3/uL High 150 - 400 k/uL [facility] RBC (Bld) [#/Vol] 4.24 10*6/uL 4.20 - 6.0 0 m/uL [facility] WBC (Bld) [#/Vol] 8.48 10*3/uL 3.70 - 11. 00 k/uL [facility] Basic metabolic 2000 panelon 03-19-2022 Anion gap [Moles/Vol] 14 mmol/L 9 - 18 mmol/L [facility] Calcium [Mass/Vol] 9.2 mg/dL 8.5 - 10. 2 mg/dL [facility] Chloride [Moles/Vol] 104 mmol/L 97 - 10 5 mmol/L [facility] CO2 [Moles/Vol] 20 mmol/L Low 22 - 30 mmol/L [facility] Creatinine [Mass/Vol] 0.75 mg/dL 0.73 - 1.22 mg/dL [facility] Estimated Glomerular Filtration Rate 96 mL/min/1.73m >=60 mL/min/1.73m [facility] Glucose [Mass/Vol] 92 mg/dL 74 - 99 mg/dL [facility] Potassium [Moles/Vol] 4.3 mmol/L 3.7 - 5.1 mmol/L [facility] Sodium [Moles/Vol] 138 mmol/L 136 - 144 mmol/L [facility] Urea nitrogen [Mass/Vol] 17 mg/dL 9 - 24 mg/d L [facility] CBC panel Auto (Bld)on 03-18 Erythrocyte distribution width (RBC) [Ratio] 19.2 % High 11.5 - 15.0 % [facility] Hematocrit (Bld) [Volume fraction] 34.2 % Low 39.0 - 51.0 % [facility] Hemoglobin (Bld) [Mass/Vol] 10.2 g/dL Low 13.0 - 17.0 g/dL [facility] MCH (RBC) [Entitic mass] 31.1 pg 26. 0 - 34.0 pg [facility] MCHC (RBC) [Mass/Vol] 29.8 g/dL Low 30.5 - 36.0 g/dL [facility] MCV (RBC) [Entitic vol] 104.3 fL High 80.0 - 100.0 fL [facility] Nucleated RBC (Bld) [#/Vol] <0.01 k/uL [facility] Platelet mean volume (Bld) [Entitic vol] 9.6 fL 9.0 - 12.7 fL [facility] Platelets (Bld) [#/Vol] 487 10*3/uL High 150 - 400 k/uL [facility] RBC (Bld) [#/Vol] 3.28 10*6/uL Low 4.20 - 6.0 0 m/uL [facility] WBC (Bld) [#/Vol] 7.81 10*3/uL 3.70 - 11. 00 k/uL [facility] Influenza virus A and B and SARS-CoV-2 (COVID-19) Ag panel - Upper respiratory specimOrdered By: Dr. Avery on 03-02-2022 SARS-CoV-2 (COVID-19) RNA RODGER+probe Ql (Resp) [facility] Absolute lymphocyte countOrd ered By: ED PROVIDER on 03-01-2022 Lymphocytes Auto (Unsp spec) [#/Vol] 1.14 10*3/uL 0.83-4.51 [facility] Basophil percentageOrdered B y: ED PROVIDER on 03-01-2022 Basophils/100 WBC (Bld) 0.5 % 0-[address] [facility] Chloride [Moles/Vol] 107 mmol/L 98-107 [facility] Eosinophils/100 WBC (Bld) 1.6 % 0-5 [facility] Glucose [Mass/Vol] 125 mg/dL 74-106 [facility] Comment on above: Fasting Glucose resu lt from 100 to 125 mg/dL suggests IMPAIRED HOMEOSTASIS per A.D.A. criteria. Neutrophils (Bld) [#/Vol] 8.5 10*3/uL 2.0-7.7 [facility] Neutrophils/100 WBC (Bld) 75.2 % 47-70 [facility] Potassium [Moles/Vol] 3.8 mmol/L 3.5-5.1 [facility] Comment on above: Slight Hemolysis, Re sult may be falsely increased. Sodium [Moles/Vol] 138 mmol/L 136-145 [facility] WBC (Bld) [#/Vol] 11.3 10*3/uL 4.4-11.0 [facility] Basophil percentageOrdered B y: Dr. Turpin on 03-01-2022 Bilirubin [Mass/Vol] 1.00 mg/dL 0.20-1.00 [facility] Comment on above: For patients on eltr ombopag therapy, use of Dimension [place] TBIL is not recommended. Protein [Mass/Vol] 6.9 g/dL 6.4-8.2 [facility] Blood erythrocytes count (nu mber/volume)Ordered By: ED PROVIDER on 03-01-2022 RBC (Bld) [#/Vol] 3.75 10*6/uL 4.6-6.2 [facility] Blood hemoglobin measurement (mass/volume)Ordered By: ED PROVIDER on 03-01-2022 Hemoglobin (Bld) [Mass/Vol] 11.3 g/dL 13.0-16.5 [facility] Blood lymphocytes/100 leukoc ytesOrdered By: ED PROVIDER on 03-01-2022 Lymphocytes/100 WBC (Bld) 10.1 % 19-41 [facility] Blood monocytes/100 leukocyt esOrdered By: ED PROVIDER on 03-01-2022 Monocytes/100 WBC (Bld) 10.7 % 0-[address] [facility] Blood platelet mean volumeOr dered By: ED PROVIDER on 03-01-2022 Platelet mean volume (Bld) [Entitic vol] 9.6 fL 6.2-12.0 [facility] Determination of erythrocyte mean corpuscular volume (MCV)Ordered By: ED PROVIDER on 03-01-2022 MCV (RBC) [Entitic vol] 95.5 fL 80-[address] [facility] Direct bilirubinOrdered By: Dr. Turpin on 03-01-2022 Bilirubin.direct [Mass/Vol] 0.28 mg/dL 0.00-0.30 [facility] Hematocrit Auto (Bld) [Volum e fraction]Ordered By: ED PROVIDER on 03-01-2022 Hematocrit (Bld) [Volume fraction] 35.8 % 40-54 [facility] INR in Blood by Coagulation assayOrdered By: Dr. Turpin on 03-01-2022 INR Coag (Bld) [Relative time] 1.3 {INR} [facility] Laboratory - Chemistry and C hemistry - challengeOrdered By: Dr. Turpin on 03-01-2022 ALP [Catalytic activity/Vol] 109 U/L 45-117 [facility] ALT [Catalytic activity/Vol] 46 U/L 16-61 [facility] Globulin (S) [Mass/Vol] 3.9 g/dL 2.2-4.[address] [facility] Laboratory - Chemistry and C hemistry - challengeOrdered By: ED PROVIDER on 03-01-2022 CO2 [Moles/Vol] 25.0 mmol/L 21.0-32.0 [facility] Urea nitrogen/Creatinine [Mass ratio] 18.0 mg/mg 10-20 [facility] Laboratory - CoagulationOrde red By: Dr. Turpin on 03-01-2022 aPTT Coag (Bld) [Time] 30.2 s 24.1-36.2 [facility] PT Coag (PPP) [Time] 15.6 s 11.7-14.9 [facility] Laboratory - Hematology and Cell countsOrdered By: ED PROVIDER on 03-01-2022 Erythrocyte distribution width (RBC) [Entitic vol] 60.0 fL 35.1-43.9 [facility] Erythrocyte distribution width (RBC) [Ratio] 17.5 % 11.6-14.6 [facility] Immature granulocytes/100 WBC (Bld) 1.900 % 0.0-0.9 [facility] Comment on above: IG% - Immature Granu locytes (promyelocytes, myelocytes and metamyelocytes) > 1% indicates that a LEFT SHIFT is Present. MCH (RBC) [Entitic mass] 30.1 pg 27.0-32.0 [facility] Nucleated RBC/100 WBC (Bld) [Ratio] 0 % 0-5 [facility] MCHC Auto (RBC) [Mass/Vol]Or dered By: ED PROVIDER on 03-01-2022 MCHC (RBC) [Mass/Vol] 31.6 g/dL 32-36 [facility] No Panel InformationOrdered By: ED PROVIDER on 03-01-2022 Estimated Creatinine Clearance Calc 63.43 ml/min [facility] Estimated GFR (MDRD) Amer 101 mL/min >60 [facility] Comment on above: GFR Calc Estimated GFR (MDRD) Non-Af Amer 83 mL/min >60 [facility] Comment on above: Non- GFR Calc Platelets bldOrdered By: ED PROVIDER on 03-01-2022 Platelets (Bld) [#/Vol] 398 10*3/uL 150-450 [facility] Serum or plasma albumin shae urement (mass/volume)Ordered By: Dr. Turpin on 03-01-2022 Albumin [Mass/Vol] 3.0 g/dL 3.2-5.0 [facility] Serum or plasma calcium shae urement (mass/volume)Ordered By: ED PROVIDER on 03-01-2022 Calcium [Mass/Vol] 8.1 mg/dL 8.5-10.1 [facility] Serum or plasma creatinine m easurement (mass/volume)Ordered By: ED PROVIDER on 03-01-2022 Creatinine [Mass/Vol] 0.95 mg/dL 0.70-1.30 [facility] Comment on above: The validity of the calculated GFR & GFRAA in patients over 70 years has not been determined. Clinical correlation is essential. Serum or plasma urea nitroge n measurement (mass/volume)Ordered By: ED PROVIDER on 03-01-2022 Urea nitrogen [Mass/Vol] 17 mg/dL 7-18 [facility] Thin prep Papanicolaou smear with manual screeningOrdered By: Dr. Turpin on 03-01-2022 Thin prep Papanicolaou smear with manual screening 67 U/L 15-37 [facility] Comment on above: Slight Hemolysis, Re sult may be falsely increased. Thin prep Papanicolaou smear with manual screeningOrdered By: ED PROVIDER on 03-01-2022 Thin prep Papanicolaou smear with manual screening 6 5-15 [facility] Absolute lymphocyte countOrd ered By: Dr. Villafana on 02-27-2022 Lymphocytes Auto (Unsp spec) [#/Vol] 1.26 10*3/uL 0.83-4.51 [facility] Basophil percentageOrdered B y: Dr. Villafana on 02-27-2022 Basophils/100 WBC (Bld) 0.7 % 0-1 [facility] Chloride [Moles/Vol] 106 mmol/L 98-107 [facility] Eosinophils/100 WBC (Bld) 3.2 % 0-5 [facility] Glucose [Mass/Vol] 104 mg/dL 74-106 [facility] Comment on above: Fasting Glucose resu lt from 100 to 125 mg/dL suggests IMPAIRED HOMEOSTASIS per A.D.A. criteria. Neutrophils (Bld) [#/Vol] 7.2 10*3/uL 2.0-7.7 [facility] Neutrophils/100 WBC (Bld) 65.8 % 47-70 [facility] Potassium [Moles/Vol] 3.5 mmol/L 3.5-5.1 [facility] Sodium [Moles/Vol] 137 mmol/L 136-145 [facility] WBC (Bld) [#/Vol] 10.9 10*3/uL 4.4-11.0 [facility] Blood erythrocytes count (nu mber/volume)Ordered By: Dr. Villafana on 02-27-2022 RBC (Bld) [#/Vol] 3.21 10*6/uL 4.6-6.2 [facility] Blood hemoglobin measurement (mass/volume)Ordered By: Dr. Villafana on 02-27-2022 Hemoglobin (Bld) [Mass/Vol] 9.6 g/dL 13.0-16.5 [facility] Blood lymphocytes/100 leukoc ytesOrdered By: Dr. Villafana on 02-27-2022 Lymphocytes/100 WBC (Bld) 11.5 % 19-41 [facility] Blood manual differential co mment interpretation (narrative result)Ordered By: Dr. Villaafna on 02-27-2022 Manual differential comment Glenn (Bld) [Interp] SCANNED [facility] Blood monocytes/100 leukocyt esOrdered By: Dr. Villafana on 02-27-2022 Monocytes/100 WBC (Bld) 14.3 % 0-[address] [facility] Blood platelet mean volumeOr dered By: Dr. Villafana on 02-27-2022 Platelet mean volume (Bld) [Entitic vol] 9.3 fL 6.2-12.0 [facility] Determination of erythrocyte mean corpuscular volume (MCV)Ordered By: Dr. Villafana on 02-27-2022 MCV (RBC) [Entitic vol] 95.6 fL 80-[address] [facility] Hematocrit Auto (Bld) [Volum e fraction]Ordered By: Dr. Villafana on 02-27-2022 Hematocrit (Bld) [Volume fraction] 30.7 % 40-54 [facility] Laboratory - Chemistry and C hemistry - challengeOrdered By: Dr. Villafana on 02-27-2022 CO2 [Moles/Vol] 25.0 mmol/L 21.0-32.0 [facility] Urea nitrogen/Creatinine [Mass ratio] 23.0 mg/mg 10-20 [facility] Laboratory - Hematology and Cell countsOrdered By: Dr. Villafana on 02-27-2022 Erythrocyte distribution width (RBC) [Entitic vol] 59.3 fL 35.1-43.9 [facility] Erythrocyte distribution width (RBC) [Ratio] 17.0 % 11.6-14.6 [facility] Immature granulocytes/100 WBC (Bld) 4.500 % 0.0-0.9 [facility] Comment on above: IG% - Immature Granu locytes (promyelocytes, myelocytes and metamyelocytes) > 1% indicates that a LEFT SHIFT is Present. MCH (RBC) [Entitic mass] 29.9 pg 27.0-32.0 [facility] Nucleated RBC/100 WBC (Bld) [Ratio] 0 % 0-5 [facility] MCHC Auto (RBC) [Mass/Vol]Or dered By: Dr. Vlilafana on 02-27-2022 MCHC (RBC) [Mass/Vol] 31.3 g/dL 32-36 [facility] No Panel InformationOrdered By: Dr. Villafana on 02-27-2022 Estimated Creatinine Clearance Calc 60.26 ml/min [facility] Estimated GFR (MDRD) Amer 144 mL/min >60 [facility] Comment on above: GFR Calc Estimated GFR (MDRD) Non-Af Amer 119 mL/min >60 [facility] Comment on above: Non- GFR Calc Platelets bldOrdered By: Dr. Villafana on 02-27-2022 Platelets (Bld) [#/Vol] 369 10*3/uL 150-450 [facility] Serum or plasma calcium shae urement (mass/volume)Ordered By: Dr. Villafana on 02-27-2022 Calcium [Mass/Vol] 7.7 mg/dL 8.5-10.1 [facility] Serum or plasma creatinine m easurement (mass/volume)Ordered By: Dr. Villafana on 02-27-2022 Creatinine [Mass/Vol] 0.70 mg/dL 0.70-1.30 [facility] Comment on above: The validity of the calculated GFR & GFRAA in patients over 70 years has not been determined. Clinical correlation is essential. Serum or plasma urea nitroge n measurement (mass/volume)Ordered By: Dr. Villafana on 02-27-2022 Urea nitrogen [Mass/Vol] 16 mg/dL 7-18 [facility] Thin prep Papanicolaou smear with manual screeningOrdered By: Dr. Villafana on 02-27-2022 Thin prep Papanicolaou smear with manual screening 6 5-15 [facility] Laboratory - Microbiology an d Antimicrobial susceptibilityOrdered By: Dr. Salazar on 02-06-2022 Bacteria identified Cx Nom (Bld) No growth in 5 days. [facility] Absolute lymphocyte countOrd ered By: Dr. Salazar on 02-01-2022 Lymphocytes Auto (Unsp spec) [#/Vol] 3.22 10*3/uL 0.83-4.51 [facility] Basophil percentageOrdered B y: Dr. Salazar on 02-01-2022 Basophil percentage 0 SEEN /hpf 0-5 [facility] Basophils/100 WBC (Bld) 0.5 % 0-[address] [facility] Bilirubin [Mass/Vol] 0.70 mg/dL 0.20-1.00 [facility] Comment on above: For patients on eltr ombopag therapy, use of Dimension [place] TBIL is not recommended. Chloride [Moles/Vol] 104 mmol/L 98-107 [facility] Eosinophils/100 WBC (Bld) 3.3 % 0-5 [facility] Glucose [Mass/Vol] 261 mg/dL 74-106 [facility] Comment on above: Glucose result great er than or equal to 200 mg/dLsuggests DIABETES MELLITUS per A.D.A. criteria. Lactate [Moles/Vol] 8.7 mmol/L 0.4-2.0 [facility] Neutrophils (Bld) [#/Vol] 5.9 10*3/uL 2.0-7.7 [facility] Neutrophils/100 WBC (Bld) 53.2 % 47-70 [facility] Potassium [Moles/Vol] 3.4 mmol/L 3.5-5.1 [facility] Protein [Mass/Vol] 5.4 g/dL 6.4-8.2 [facility] Sodium [Moles/Vol] 136 mmol/L 136-145 [facility] WBC (Bld) [#/Vol] 11.1 10*3/uL 4.4-11.0 [facility] Bilirubin Test strip Ql (U)O rdered By: Dr. Salazar on 02-01-2022 Bilirubin Ql (U) Negative Negative [facility] Blood erythrocytes count (nu mber/volume)Ordered By: Dr. Salazar on 02-01-2022 RBC (Bld) [#/Vol] 3.26 10*6/uL 4.6-6.2 [facility] Blood hemoglobin measurement (mass/volume)Ordered By: Dr. Salazar on 02-01-2022 Hemoglobin (Bld) [Mass/Vol] 10.6 g/dL 13.0-16.5 [facility] Blood lymphocytes/100 leukoc ytesOrdered By: Dr. Salazar on 02-01-2022 Lymphocytes/100 WBC (Bld) 29.1 % 19-41 [facility] Blood monocytes/100 leukocyt esOrdered By: Dr. Salazar on 02-01-2022 Monocytes/100 WBC (Bld) 9.7 % 0-[address] [facility] Blood platelet mean volumeOr dered By: Dr. Salazar on 02-01-2022 Platelet mean volume (Bld) [Entitic vol] 10.4 fL 6.2-12.0 [facility] COVID-19 virus antigen assay Ordered By: Dr. Salazar on 02-01-2022 SARS-CoV-2 (COVID-19) Ag IA.rapid Ql (Resp) [facility] Determination of erythrocyte mean corpuscular volume (MCV)Ordered By: Dr. Salazar on 02-01-2022 MCV (RBC) [Entitic vol] 100.9 fL 80-[address] [facility] Direct bilirubinOrdered By: Dr. Slaazar on 02-01-2022 Bilirubin.direct [Mass/Vol] 0.17 mg/dL 0.00-0.30 [facility] Hematocrit Auto (Bld) [Volum e fraction]Ordered By: Dr. Salazar on 02-01-2022 Hematocrit (Bld) [Volume fraction] 32.9 % 40-54 [facility] INR in Blood by Coagulation assayOrdered By: Dr. Salazar on 02-01-2022 INR Coag (Bld) [Relative time] 1.3 {INR} [facility] Ketones Test strip Ql (U)Ord ered By: Dr. Salazar on 02-01-2022 Ketones Ql (U) Negative Negative [facility] Laboratory - Chemistry and C hemistry - challengeOrdered By: Dr. Salazar on 02-01-2022 ALP [Catalytic activity/Vol] 58 U/L 45-117 [facility] ALT [Catalytic activity/Vol] 20 U/L 16-61 [facility] CO2 [Moles/Vol] 18.0 mmol/L 21.0-32.0 [facility] Globulin (S) [Mass/Vol] 3.0 g/dL 2.2-4.[address] [facility] Lipase [Catalytic activity/Vol] 116 U/L 73-393 [facility] Urea nitrogen/Creatinine [Mass ratio] 13.7 mg/mg 10-20 [facility] Laboratory - CoagulationOrde red By: Dr. Salazar on 02-01-2022 aPTT Coag (Bld) [Time] 23.8 s 24.1-36.2 [facility] PT Coag (PPP) [Time] 15.9 s 11.7-14.9 [facility] Laboratory - Hematology and Cell countsOrdered By: Dr. Salazar on 02-01-2022 Erythrocyte distribution width (RBC) [Entitic vol] 47.9 fL 35.1-43.9 [facility] Erythrocyte distribution width (RBC) [Ratio] 12.9 % 11.6-14.6 [facility] Immature granulocytes/100 WBC (Bld) 4.200 % 0.0-0.9 [facility] Comment on above: IG% - Immature Granu locytes (promyelocytes, myelocytes and metamyelocytes) > 1% indicates that a LEFT SHIFT is Present. MCH (RBC) [Entitic mass] 32.5 pg 27.0-32.0 [facility] Nucleated RBC/100 WBC (Bld) [Ratio] 0 % 0-5 [facility] MCHC Auto (RBC) [Mass/Vol]Or dered By: Dr. Salazar on 02-01-2022 MCHC (RBC) [Mass/Vol] 32.2 g/dL 32-36 [facility] Mucus LM Ql (Urine sed)Order ed By: Dr. Salazar on 02-01-2022 Mucus Ql (Urine sed) 0 SEEN /hpf [facility] Nitrite Test strip Ql (U)Ord ered By: Dr. Salazar on 02-01-2022 Nitrite Ql (U) Negative Negative [facility] No Panel InformationOrdered By: Dr. Salazar on 02-01-2022 Estimated Creatinine Clearance Calc 34.94 ml/min [facility] Estimated GFR (MDRD) Amer 50 mL/min >60 [facility] Comment on above: GFR Calc Estimated GFR (MDRD) Non-Af Amer 41 mL/min >60 [facility] Comment on above: Non- GFR Calc Troponin I High Sensitivity 10 pg/mL 3.0-78.0 [facility] Comment on above: Please Note: New Adriane t Units and Gender Specific Reference Ranges. For more information see Policy Stat Procedure [place] High Sensitivity Troponin (TNIH) and attachments. Platelets bldOrdered By: Dr. Salazar on 02-01-2022 Platelets (Bld) [#/Vol] 220 10*3/uL 150-450 [facility] Protein Test strip Ql (U)Ord ered By: Dr. Salazar on 02-01-2022 Protein Ql (U) 15 mg/dl Negative [facility] Serum or plasma albumin shae urement (mass/volume)Ordered By: Dr. Salazar on 02-01-2022 Albumin [Mass/Vol] 2.4 g/dL 3.2-5.0 [facility] Serum or plasma calcium shae urement (mass/volume)Ordered By: Dr. Salazar on 02-01-2022 Calcium [Mass/Vol] 7.8 mg/dL 8.5-10.1 [facility] Serum or plasma creatinine m easurement (mass/volume)Ordered By: Dr. Salazar on 02-01-2022 Creatinine [Mass/Vol] 1.75 mg/dL 0.70-1.30 [facility] Comment on above: The validity of the calculated GFR & GFRAA in patients over 70 years has not been determined. Clinical correlation is essential. Serum or plasma urea nitroge n measurement (mass/volume)Ordered By: Dr. Salazar on 02-01-2022 Urea nitrogen [Mass/Vol] 24 mg/dL 7-18 [facility] Squamous epithelial cells de tection in urine sediment by light microscopyOrdered By: Dr. Salazar on 02-01-2022 Epithelial cells.squamous LM Ql (Urine sed) 0 SEEN /hpf 0-5 [facility] Thin prep Papanicolaou smear with manual screeningOrdered By: Dr. Salazar on 02-01-2022 Thin prep Papanicolaou smear with manual screening 17 U/L 15-37 [facility] Thin prep Papanicolaou smear with manual screening 14 5-15 [facility] Urine blood detectionOrdered By: Dr. Salazar on 02-01-2022 RBC Ql (U) Negative Negative [facility] RBC Ql (U) 0 SEEN /hpf 0-5 [facility] Urine clarityOrdered By: Dr. Salazar on 02-01-2022 Clarity (U) Clear Clear [facility] Urine color determinationOrd ered By: Dr. Salazar on 02-01-2022 Color (U) Yellow Yellow [facility] Urine glucose detectionOrder ed By: Dr. Salazar on 02-01-2022 Glucose Ql (U) Normal mg/dl Normal [facility] Urine leukocyte esterase det ection by dipstickOrdered By: Dr. Salazar on 02-01-2022 Leukocyte esterase Test strip Ql (U) Negative Negative [facility] Urine pHOrdered By: Dr. Blanka carroll on 02-01-2022 pH (U) 5.0 [pH] 5.0 - 8.0 [facility] Urine sediment bacteria coun t by microscopy (number/high power field)Ordered By: Dr. Salazar on 02-01-2022 Bacteria LM.HPF (Urine sed) [#/Area] 0 /[HPF] None Seen [facility] Urine specific gravity measu rementOrdered By: Dr. Salazar on 02-01-2022 Specific gravity (U) [Rel density] 1.025 1.002-1.030 [facility] Urobilinogen Auto test strip Ql (U)Ordered By: Dr. Salazar on 02-01-2022 Urobilinogen Ql (U) Normal mg/dl Normal [facility] NT PRO BNPon 01-07-2022 Natriuretic peptide.B prohormone N-Terminal [Mass/Vol] 139 pg/mL High <125 pg/mL [facility] No Panel Informationon 01-07 [facility] TROPONIN Ton 01-07-2022 Troponin T.cardiac [Mass/Vol] 0.000 - 0.029 ng/mL [facility] SIGMOIDOSCOPYon 09-17-2021 [facility] CBC W Auto Differential pane l (Bld)on 07-07-2021 Abs Immature Gran 0.03 k/uL <0.10 k/uL [facility] Basophils (Bld) [#/Vol] 10*3/uL <0.11 k/uL C [facility] Basophils/100 WBC (Bld) 0.5 % C [facility] Differential cell count method Nom (Bld) Auto [facility] Eosinophils (Bld) [#/Vol] 0.07 10*3/uL <0.46 k/uL [facility] Eosinophils/100 WBC (Bld) 1.7 % [facility] Erythrocyte distribution width (RBC) [Ratio] 14.9 % 11.5 - 15.0 % [facility] Hematocrit (Bld) [Volume fraction] 38.0 % Low 39.0 - 51.0 % [facility] Hemoglobin (Bld) [Mass/Vol] 13.1 g/dL 13.0 - 17.0 g/dL [facility] Immature Gran % 0.7 % [facility] Lymphocytes (Bld) [#/Vol] 0.47 10*3/uL Low 1.00 - 4.00 k/uL [facility] Lymphocytes/100 WBC (Bld) 11.6 % [facility] MCH (RBC) [Entitic mass] 32.7 pg 26. 0 - 34.0 pg [facility] MCHC (RBC) [Mass/Vol] 34.5 g/dL 30.5 - 36.0 g/dL [facility] MCV (RBC) [Entitic vol] 94.8 fL 80.0 - 100.0 fL [facility] Monocytes (Bld) [#/Vol] 0.72 10*3/uL <0.87 k/uL [facility] Monocytes/100 WBC (Bld) 17.7 % [facility] Neutrophils (Bld) [#/Vol] 2.75 10*3/uL 1.45 - 7.50 k/uL [facility] Neutrophils/100 WBC (Bld) 67.8 % [facility] Nucleated RBC (Bld) [#/Vol] 10*3/uL <0.01 k/uL [facility] Nucleated RBC/100 WBC (Bld) [Ratio] 0.0 /100 WBC [facility] Platelet mean volume (Bld) [Entitic vol] 9.1 fL 9.0 - 12.7 fL [facility] Platelets (Bld) [#/Vol] 112 10*3/uL Low 150 - 400 k/uL [facility] RBC (Bld) [#/Vol] 4.01 10*6/uL Low 4.20 - 6.0 0 m/uL [facility] WBC (Bld) [#/Vol] 4.06 10*3/uL 3.70 - 11. 00 k/uL [facility] Comprehensive metabolic 2000 panelon 07-07-2021 Albumin [Mass/Vol] 4.3 g/dL 3.9 - 4.9 g/dL [facility] ALP [Catalytic activity/Vol] 86 U/L 38 - 113 U/L [facility] ALT [Catalytic activity/Vol] 30 U/L 10 - 54 U/L [facility] Anion gap [Moles/Vol] 8 mmol/L Low 9 - 18 mmol/L [facility] AST [Catalytic activity/Vol] 35 U/L 14 - 40 U/L [facility] Bilirubin [Mass/Vol] 0.3 mg/dL 0.2 - 1 .3 mg/dL [facility] Calcium [Mass/Vol] 8.7 mg/dL 8.5 - 10. 2 mg/dL [facility] Chloride [Moles/Vol] 105 mmol/L 97 - 10 5 mmol/L [facility] CO2 [Moles/Vol] 26 mmol/L 22 - 30 mmol/L [facility] Creatinine [Mass/Vol] 0.88 mg/dL 0.73 - 1.22 mg/dL [facility] Estimated Glomerular Filtration Rate 92 mL/min/1.73m >=60 mL/min/1.73m [facility] Glucose [Mass/Vol] 97 mg/dL 74 - 99 mg/dL [facility] Potassium [Moles/Vol] 3.9 mmol/L 3.7 - 5.1 mmol/L [facility] Protein [Mass/Vol] 6.8 g/dL 6.3 - 8.0 g/dL [facility] Sodium [Moles/Vol] 139 mmol/L 136 - 144 mmol/L [facility] Urea nitrogen [Mass/Vol] 12 mg/dL 9 - 24 mg/d L [facility] MAGNESIUM BLDon 07-07-2021 Magnesium [Mass/Vol] 2.1 mg/dL 1.7 - 2 .3 mg/dL [facility] CBC W Auto Differential pane l (Bld)on 06-30-2021 Abs Immature Gran 0.03 k/uL <0.10 k/uL [facility] Basophils (Bld) [#/Vol] 10*3/uL <0.11 k/[facility]L [facility] Basophils/100 WBC (Bld) 0.6 % [facility] Differential cell count method Nom (Bld) Auto [facility] Eosinophils (Bld) [#/Vol] 0.10 10*3/uL <0.46 k/uL [facility] Eosinophils/100 WBC (Bld) 3.1 % [facility] Erythrocyte distribution width (RBC) [Ratio] 13.9 % 11.5 - 15.0 % [facility] Hematocrit (Bld) [Volume fraction] 38.9 % Low 39.0 - 51.0 % [facility] Hemoglobin (Bld) [Mass/Vol] 12.9 g/dL Low 13.0 - 17.0 g/dL [facility] Immature Gran % 0.9 % [facility] Lymphocytes (Bld) [#/Vol] 0.52 10*3/uL Low 1.00 - 4.00 k/uL [facility] Lymphocytes/100 WBC (Bld) 16.0 % [facility] MCH (RBC) [Entitic mass] 31.9 pg 26. 0 - 34.0 pg [facility] MCHC (RBC) [Mass/Vol] 33.2 g/dL 30.5 - 36.0 g/dL [facility] MCV (RBC) [Entitic vol] 96.0 fL 80.0 - 100.0 fL [facility] Monocytes (Bld) [#/Vol] 0.68 10*3/uL <0.87 k/uL [facility] Monocytes/100 WBC (Bld) 20.9 % [facility]ld[facility] [#/Vol] 1.91 10*3/uL 1.45 - 7.50 k/uL [facility] Neutrophils/100 WBC (Bld) 58.5 % [facility] Nucleated RBC (Bld) [#/Vol] 10*3/uL <0.01 k/uL [facility] Nucleated RBC/100 WBC (Bld) [Ratio] 0.0 /100 WBC [facility] Platelet mean volume (Bld) [Entitic vol] 9.2 fL 9.0 - 12.7 fL [facility] Platelets (Bld) [#/Vol] 107 10*3/uL Low 150 - 400 k/uL [facility] RBC (Bld) [#/Vol] 4.05 10*6/uL Low 4.20 - 6.0 0 m/uL [facility] WBC (Bld) [#/Vol] 3.26 10*3/uL Low 3.70 - 11. 00 k/uL [facility] Comprehensive metabolic 2000 panelon 06-30-2021 Albumin [Mass/Vol] 4.1 g/dL 3.9 - 4.9 g/dL [facility] ALP [Catalytic activity/Vol] 91 U/L 38 - 113 U/L [facility] ALT [Catalytic activity/Vol] 22 U/L 10 - 54 U/L [facility] Anion gap [Moles/Vol] 7 mmol/L Low 9 - 18 mmol/L [facility] AST [Catalytic activity/Vol] 28 U/L 14 - 40 U/L [facility] Bilirubin [Mass/Vol] 0.3 mg/dL 0.2 - 1 .3 mg/dL [facility] Calcium [Mass/Vol] 8.4 mg/dL Low 8.5 - 10. 2 mg/dL [facility] Chloride [Moles/Vol] 107 mmol/L High 97 - 10 5 mmol/L [facility] CO2 [Moles/Vol] 25 mmol/L 22 - 30 mmol/L [facility] Creatinine [Mass/Vol] 0.82 mg/dL 0.73 - 1.22 mg/dL [facility] Estimated Glomerular Filtration Rate 94 mL/min/1.73m >=60 mL/min/1.73m [facility] Glucose [Mass/Vol] 103 mg/dL High 74 - 99 mg/dL [facility] Potassium [Moles/Vol] 4.1 mmol/L 3.7 - 5.1 mmol/L [facility] Protein [Mass/Vol] 6.5 g/dL 6.3 - 8.0 g/dL [facility] Sodium [Moles/Vol] 139 mmol/L 136 - 144 mmol/L [facility] Urea nitrogen [Mass/Vol] 11 mg/dL 9 - 24 mg/d L [facility] MAGNESIUM BLDon 06-30-2021 Magnesium [Mass/Vol] 2.1 mg/dL 1.7 - 2 .3 mg/dL [facility] CBC W Auto Differential pane l (Bld)on 06-23-2021 Abs Immature Gran <0.03 <0.10 k/uL [facility] Basophils (Bld) [#/Vol] 10*3/uL <0.11 k/uL [facility] Basophils/100 WBC (Bld) 0.3 % [facility] Differential cell count method Nom (Bld) Auto [facility] Eosinophils (Bld) [#/Vol] 0.10 10*3/uL <0.46 k/uL [facility] Eosinophils/100 WBC (Bld) 2.7 % [facility] Erythrocyte distribution width (RBC) [Ratio] 13.2 % 11.5 - 15.0 % [facility] Hematocrit (Bld) [Volume fraction] 39.1 % 39.0 - 51.0 % [facility] Hemoglobin (Bld) [Mass/Vol] 13.0 g/dL 13.0 - 17.0 g/dL [facility] Immature Gran % 0.3 % [facility] Lymphocytes (Bld) [#/Vol] 0.90 10*3/uL Low 1.00 - 4.00 k/uL [facility] Lymphocytes/100 WBC (Bld) 24.7 % [facility] MCH (RBC) [Entitic mass] 31.9 pg 26. 0 - 34.0 pg [facility] MCHC (RBC) [Mass/Vol] 33.2 g/dL 30.5 - 36.0 g/dL [facility] MCV (RBC) [Entitic vol] 95.8 fL 80.0 - 100.0 fL [facility] Monocytes (Bld) [#/Vol] 0.67 10*3/uL <0.87 k/uL [facility] Monocytes/100 WBC (Bld) 18.4 % [facility] Neutrophils (Bld) [#/Vol] 1.96 10*3/uL 1.45 - 7.50 k/uL [facility] Neutrophils/100 WBC (Bld) 53.6 % [facility] Nucleated RBC (Bld) [#/Vol] 10*3/uL <0.01 k/uL [facility] Nucleated RBC/100 WBC (Bld) [Ratio] 0.0 /100 WBC [facility] Platelet mean volume (Bld) [Entitic vol] 9.7 fL 9.0 - 12.7 fL [facility] Platelets (Bld) [#/Vol] 169 10*3/uL 150 - 400 k/uL [facility] RBC (Bld) [#/Vol] 4.08 10*6/uL Low 4.20 - 6.0 0 m/uL [facility] WBC (Bld) [#/Vol] 3.65 10*3/uL Low 3.70 - 11. 00 k/uL [facility] Comprehensive metabolic 2000 panelon 06-23-2021 Albumin [Mass/Vol] 4.0 g/dL 3.9 - 4.9 g/dL [facility] ALP [Catalytic activity/Vol] 89 U/L 38 - 113 U/L [facility] ALT [Catalytic activity/Vol] 18 U/L 10 - 54 U/L [facility] Anion gap [Moles/Vol] 11 mmol/L 9 - 18 mmol/L [facility] AST [Catalytic activity/Vol] 25 U/L 14 - 40 U/L [facility] Bilirubin [Mass/Vol] 0.3 mg/dL 0.2 - 1 .3 mg/dL [facility] Calcium [Mass/Vol] 8.6 mg/dL 8.5 - 10. 2 mg/dL [facility] Chloride [Moles/Vol] 105 mmol/L 97 - 10 5 mmol/L [facility] CO2 [Moles/Vol] 25 mmol/L 22 - 30 mmol/L [facility] Creatinine [Mass/Vol] 0.81 mg/dL 0.73 - 1.22 mg/dL [facility] Estimated Glomerular Filtration Rate 94 mL/min/1.73m >=60 mL/min/1.73m [facility] Glucose [Mass/Vol] 83 mg/dL 74 - 99 mg/dL [facility] Potassium [Moles/Vol] 3.8 mmol/L 3.7 - 5.1 mmol/L [facility] Protein [Mass/Vol] 6.5 g/dL 6.3 - 8.0 g/dL [facility] Sodium [Moles/Vol] 141 mmol/L 136 - 144 mmol/L [facility] Urea nitrogen [Mass/Vol] 13 mg/dL 9 - 24 mg/d L [facility] MAGNESIUM BLDon 06-23-2021 Magnesium [Mass/Vol] 2.1 mg/dL 1.7 - 2 .3 mg/dL [facility] CBC W Auto Differential pane l (Bld)on 06-16-2021 Abs Immature Gran 0.03 k/uL <0.10 k/uL [facility] Basophils (Bld) [#/Vol] 0.03 10*3/uL <0.11 k/uL [facility] Basophils/100 WBC (Bld) 0.6 % [facility] Differential cell count method Nom (Bld) Auto [facility] Eosinophils (Bld) [#/Vol] 0.15 10*3/uL <0.46 k/uL [facility] Eosinophils/100 WBC (Bld) 3.2 % [facility] Erythrocyte distribution width (RBC) [Ratio] 12.9 % 11.5 - 15.0 % [facility] Hematocrit (Bld) [Volume fraction] 38.4 % Low 39.0 - 51.0 % [facility] Hemoglobin (Bld) [Mass/Vol] 12.9 g/dL Low 13.0 - 17.0 g/dL [facility] Immature Gran % 0.6 % [facility] Lymphocytes (Bld) [#/Vol] 1.11 10*3/uL 1.00 - 4.00 k/uL [facility] Lymphocytes/100 WBC (Bld) 23.8 % [facility] MCH (RBC) [Entitic mass] 31.6 pg 26. 0 - 34.0 pg [facility] MCHC (RBC) [Mass/Vol] 33.6 g/dL 30.5 - 36.0 g/dL [facility] MCV (RBC) [Entitic vol] 94.1 fL 80.0 - 100.0 fL [facility] Monocytes (Bld) [#/Vol] 0.38 10*3/uL <0.87 k/uL [facility] Monocytes/100 WBC (Bld) 8.1 % [facility] Neutrophils (Bld) [#/Vol] 2.97 10*3/uL 1.45 - 7.50 k/uL [facility] Neutrophils/100 WBC (Bld) 63.7 % [facility] Nucleated RBC (Bld) [#/Vol] 10*3/uL <0.01 k/uL [facility] Nucleated RBC/100 WBC (Bld) [Ratio] 0.0 /100 WBC [facility] Platelet mean volume (Bld) [Entitic vol] 9.9 fL 9.0 - 12.7 fL [facility] Platelets (Bld) [#/Vol] 184 10*3/uL 150 - 400 k/uL [facility] RBC (Bld) [#/Vol] 4.08 10*6/uL Low 4.20 - 6.0 0 m/uL [facility] WBC (Bld) [#/Vol] 4.67 10*3/uL 3.70 - 11. 00 k/uL [facility] Comprehensive metabolic 2000 panelon 06-16-2021 Albumin [Mass/Vol] 3.9 g/dL 3.9 - 4.9 g/dL [facility] ALP [Catalytic activity/Vol] 95 U/L 38 - 113 U/L [facility] ALT [Catalytic activity/Vol] 12 U/L 10 - 54 U/L [facility] Anion gap [Moles/Vol] 7 mmol/L Low 9 - 18 mmol/L [facility] AST [Catalytic activity/Vol] 19 U/L 14 - 40 U/L [facility] Bilirubin [Mass/Vol] 0.6 mg/dL 0.2 - 1 .3 mg/dL [facility] Calcium [Mass/Vol] 8.4 mg/dL Low 8.5 - 10. 2 mg/dL [facility] Chloride [Moles/Vol] 105 mmol/L 97 - 10 5 mmol/L [facility] CO2 [Moles/Vol] 25 mmol/L 22 - 30 mmol/L [facility] Creatinine [Mass/Vol] 0.74 mg/dL 0.73 - 1.22 mg/dL [facility] Estimated Glomerular Filtration Rate 97 mL/min/1.73m >=60 mL/min/1.73m [facility] Glucose [Mass/Vol] 97 mg/dL 74 - 99 mg/dL [facility] Potassium [Moles/Vol] 3.8 mmol/L 3.7 - 5.1 mmol/L [facility] Protein [Mass/Vol] 6.4 g/dL 6.3 - 8.0 g/dL [facility] Sodium [Moles/Vol] 137 mmol/L 136 - 144 mmol/L [facility] Urea nitrogen [Mass/Vol] 13 mg/dL 9 - 24 mg/d L [facility] MAGNESIUM BLDon 06-16-2021 Magnesium [Mass/Vol] 2.1 mg/dL 1.7 - 2 .3 mg/dL [facility] Established Visit (Otolaryng ology)on 02-10-2021 Established [...] MG Oral TabletTAKE 1 TABLET TWICE DAILY. Spencer-3 350 MG Oral Capsule Delayed Release Probiotic CAPS Tamsulosin HCl - 0.4 MG Oral CapsuleTAKE 1 CAPSULE Bedtime Triamcinolone Acetonide 0.1 % External Cream Physical Exam On physical exam, the patient is a well-nourished, well-developed patient, in no acute distress, and able to communicate without assistance in Citizen [place] language. Head and face is atraumatic and [...] 10.1 x (more content not included)... Normal [facility] MRI IAC w/wo Contraston 01-29 MRI IAC w/wo Contrast Normal [facility] Work Phone: NR MRI IAC WO/Won 02-10-2021 NR MRI IAC WO/W Patient Name: JAI LUNA STUDY: MRI IAC WO/W; 02/10/2021 1:53 pm INDICATION: Acoustic neuroma; Health Maintenance. COMPARISON: None. ACCESSION NUMBER(S): [id number] ORDERING CLINICIAN: GISELA HARRELL TECHNIQUE: T2, FLAIR, [...] age. Electronically signed by: DO Sly MAE [facility] Office Visit (Audiology)on 04-13-2020 Follow-up [...] aural fullness. Patient utilizes a CROS aid. [phone] Patient's preferred language: Citizen [place] Preferred language of the parent, legal guardian or surrogate decision-maker of this minor or incapacitated patient: Not Applicable No overt signs of domestic violence/neglect/abus e. No referral made to [employer]. 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 : No What are the patient's signs and symptoms? : Acoustic neuroma; Health Maintenance Audiology Referral Evaluation and Treatment Evaluate AND Treat Cross hearing aide Status: Hold For - Scheduling,Retrospect marquita By Protocol Authorization Requested for: [id number] Provider Impressions In summary, Mr. Luna is [...] MG Oral TabletTAKE 1 TABLET TWICE DAILY. Spencer-3 350 MG Oral Capsule Delayed Release Probiotic Oral Capsule Tamsulosin HCl - 0.4 MG Oral CapsuleTAKE 1 CAPSULE Bedtime Triamcinolone Acetonide 0.1 % External Cream Vitals Vital Signs Recorded: 12Aug2020 11:33AM Height5 ft 5 in Huxlfo485 lb 0.9 oz BMI Lutaiueloj82.79 kg/m2 BSA Calculated1.97 Physical Exam On physical exam, the patient is a well-nourished, well-developed patient, in no acute distress, and able to communicate without assistance in Citizen [place] language. Head and face is atraumatic and [...] shows moderat (more content not included)... Normal eCert COVID-19 virus antigen assay SARS-CoV-2 (COVID-19) Ag IA.rapid Ql (Resp) [facility] Work Phone: Influenza virus A and B and SARS-CoV-2 (COVID-19) Ag panel - Upper respiratory specim SARS-CoV-2 (COVID-19) RNA RODGER+probe Ql (Resp) [facility] Work Phone: Laboratory - Microbiology an d Antimicrobial susceptibility Bacteria identified Cx Nom (Bld) No growth in 5 days. [facility] Work Phone: Vital Signs Date Time Vital Sign Value Performing Clinician Facility 11-29-2024 07:49-0400 Body height 167.[address] Katy Faust MD Work Phone: [facility] 11-29-2024 07:49-0400 Body mass index (BMI) [Ratio] 30.8 kg/m2 Dr. Katy Faust MD Work Phone: 0([phone] [place] [address] 11-29-2024 07:49-0400 Body weight 86.[address] Katy Faust MD Work Phone: 8(064)277-519806 [place] [address] 11-29-2024 07:49-0400 Diastolic blood pressure 77 mm[Hg] Dr. Katy Faust MD Work Phone: 3(421)[phone] [place] [address] 11-29-2024 07:49-0400 Heart rate 76 /min Dr. Katy Faust MD Work Phone: 6(089)256-035206 [place] [address] 11-29-2024 07:49-0400 Respiratory rate 18 /min Dr. Katy Faust MD Work Phone: 1(852)878-918706 [place] [address] 11-29-2024 07:49-0400 SaO2% (BldA) [Mass fraction] 95 % Dr. Katy Faust MD Work Phone: 4(304)[phone] [place] [address] 11-29-2024 07:49-0400 Systolic blood pressure 139 mm[Hg] Dr. Katy Faust MD Work Phone: 7(975)[phone] [place] [address] 10-13-2024 08:58-0400 Body height 167.[address] Katy Faust MD Work Phone: 8(189)382-552706 [place] [address] 10-13-2024 08:58-0400 Body mass index (BMI) [Ratio] 31.3 kg/m2 Dr. Katy Faust MD Work Phone: 4(780)[phone] [place] [address] 10-13-2024 08:58-0400 Body weight 87.[address] Katy Faust MD Work Phone: 9(925)[phone] [place] [address] 08-23-2024 10:08-0400 Body temperature 97.3 [degF] Dr. Katy Faust MD Work Phone: 4(016)[phone] [place] [address] 08-23-2024 10:08-0400 Body weight 87.[address] Katy Faust MD Work Phone: 1(557)034-841606 [place] [address] 08-23-2024 10:08-0400 Diastolic blood pressure 80 mm[Hg] Dr. Katy Faust MD Work Phone: [facility] 08-23-2024 10:08-0400 Heart rate 62 /min Dr. Katy Faust MD Work Phone: [facility] 08-23-2024 10:08-0400 Respiratory rate 16 /min Dr. Katy Faust MD Work Phone: [facility] 08-23-2024 10:08-0400 SaO2% (BldA) [Mass fraction] 98 % Dr. Katy Faust MD Work Phone: [facility] 08-23-2024 10:08-0400 Systolic blood pressure 120 mm[Hg] Dr. Katy Faust MD Work Phone: [facility] 08-15-2024 15:17-0400 Body mass index (BMI) [Ratio] 32.28 kg/m2 Norm Elena ANALYTICS INTERN.CUP MACHINE OPERATOR Work Phone: [facility] 08-15-2024 15:17-0400 Body weight 87.3 kg Norm Elena ANALYTICS INTERN.CUP MACHINE OPERATOR Work Phone: [facility] 08-15-2024 15:17-0400 Diastolic blood pressure 70 mm[Hg] Norm Elena ANALYTICS INTERN.CUP MACHINE OPERATOR Work Phone: [facility] 08-15-2024 15:17-0400 Heart rate 62 /min Norm Elena ANALYTICS INTERN.CUP MACHINE OPERATOR Work Phone: [facility] 08-15-2024 15:17-0400 SaO2% (BldA) [Mass fraction] 98 % Norm Elena ANALYTICS INTERN.CUP MACHINE OPERATOR Work Phone: [facility] 08-15-2024 15:17-0400 Systolic blood pressure 132 mm[Hg] Norm Elena ANALYTICS INTERN.CUP MACHINE OPERATOR Work Phone: [facility] 07-05-2024 07:57-0400 Body mass index (BMI) [Ratio] 31.91 kg/m2 Norm Elena ANALYTICS INTERN.CUP MACHINE OPERATOR Work Phone: [facility] 07-05-2024 07:57-0400 Body weight 86.3 kg Norm Elena ANALYTICS INTERN.CUP MACHINE OPERATOR Work Phone: [facility] 07-05-2024 07:57-0400 Diastolic blood pressure 80 mm[Hg] Norm Elena ANALYTICS INTERN.CUP MACHINE OPERATOR Work Phone: [facility] 07-05-2024 07:57-0400 Heart rate 75 /min Norm Elena ANALYTICS INTERN.CUP MACHINE OPERATOR Work Phone: [facility] 07-05-2024 07:57-0400 SaO2% (BldA) [Mass fraction] 97 % Norm Elena ANALYTICS INTERN.CUP MACHINE OPERATOR Work Phone: [facility] 07-05-2024 07:57-0400 Systolic blood pressure 138 mm[Hg] Norm Elena ANALYTICS INTERN.CUP MACHINE OPERATOR Work Phone: [facility] 05-31-2024 15:53-0400 Body mass index (BMI) [Ratio] 32.61 kg/m2 Katy Faust MD Work Phone: [facility] 05-31-2024 15:53-0400 Body temperature 97 [degF] Katy Faust MD Work Phone: [facility] 05-31-2024 15:53-0400 Body weight 88.2 kg Katy Faust MD Work Phone: [facility] 05-31-2024 15:53-0400 Diastolic blood pressure 68 mm[Hg] Katy Faust MD Work Phone: [facility] 05-31-2024 15:53-0400 Heart rate 64 /min Katy Faust MD Work Phone: [facility] 05-31-2024 15:53-0400 Respiratory rate 16 /min Katy Faust MD Work Phone: [facility] 05-31-2024 15:53-0400 Systolic blood pressure 138 mm[Hg] Katy Faust MD Work Phone: [facility] 04-25-2024 15:29-0500 Body temperature 98.5 [degF] Dr. Katy Faust MD Work Phone: 7(353)[phone] [place] [address] 04-25-2024 15:29-0500 Diastolic blood pressure 75 mm[Hg] Dr. Katy Faust MD Work Phone: 2(363)[phone] [place] [address] 04-25-2024 15:29-0500 Heart rate 65 /min Dr. Katy Faust MD Work Phone: 2(609)652-151706 [place] [address] 04-25-2024 15:29-0500 Respiratory rate 16 /min Dr. Katy Faust MD Work Phone: 7(554)232-706906 [place] [address] 04-25-2024 15:29-0500 SaO2% (BldA) [Mass fraction] 98 % Dr. Katy Faust MD Work Phone: 8(892)557-290406 [place] [address] 04-25-2024 15:29-0500 Systolic blood pressure 140 mm[Hg] Dr. Katy Faust MD Work Phone: 3(097)765-539442 [place] [address] 04-25-2024 10:35-0500 Body height 167.[address] Katy Faust MD Work Phone: 8([phone])[phone] [place] [address] 04-25-2024 10:35-0500 Body mass index (BMI) [Ratio] 30.4 kg/m2 Dr. Katy Faust MD Work Phone: 4(269)726-700206 [place] [address] 04-25-2024 10:35-0500 Body weight 85.[address] Katy Faust MD Work Phone: 7([phone])264-765842 [place] [address] 01-04-2024 14:40-0500 Body height 164.5 cm Norm Elena ANALYTICS INTERN.CUP MACHINE OPERATOR Work Phone: 0(635)279-920563 [place] [address] 01-04-2024 14:40-0500 Body mass index (BMI) [Ratio] 31.76 kg/m2 Norm Elena ANALYTICS INTERN.CUP MACHINE OPERATOR Work Phone: 6(989)109-472563 [place] [address] 01-04-2024 14:40-0500 Body weight 85.9 kg Norm Elena ANALYTICS INTERN.CUP MACHINE OPERATOR Work Phone: [phone] [place] [address] 01-04-2024 14:40-0500 Diastolic blood pressure 74 mm[Hg] Norm Elena ANALYTICS INTERN.CUP MACHINE OPERATOR Work Phone: [facility] 01-04-2024 14:40-0500 Heart rate 64 /min Norm Elena ANALYTICS INTERN.CUP MACHINE OPERATOR Work Phone: [facility] 01-04-2024 14:40-0500 SaO2% (BldA) [Mass fraction] 98 % Norm Elena ANALYTICS INTERN.CUP MACHINE OPERATOR Work Phone: [facility] 01-04-2024 14:40-0500 Systolic blood pressure 136 mm[Hg] Norm Elena ANALYTICS INTERN.CUP MACHINE OPERATOR Work Phone: [facility] 11-30-2023 09:58-0400 Diastolic blood pressure 72 mm[Hg] Norm Elena ANALYTICS INTERN.CUP MACHINE OPERATOR Work Phone: [facility] 11-30-2023 09:58-0400 Systolic blood pressure 150 mm[Hg] Norm Elena ANALYTICS INTERN.CUP MACHINE OPERATOR Work Phone: [facility] 11-30-2023 09:57-0400 Body mass index (BMI) [Ratio] 30.17 kg/m2 Norm Elena ANALYTICS INTERN.CUP MACHINE OPERATOR Work Phone: [facility] 11-30-2023 09:57-0400 Body weight 84.8 kg Norm Elena ANALYTICS INTERN.CUP MACHINE OPERATOR Work Phone: [facility] 11-30-2023 09:57-0400 Heart rate 54 /min Norm Elena ANALYTICS INTERN.CUP MACHINE OPERATOR Work Phone: [facility] 11-30-2023 09:57-0400 SaO2% (BldA) [Mass fraction] 99 % Norm Elena ANALYTICS INTERN.CUP MACHINE OPERATOR Work Phone: [facility] 09-22-2023 13:28-0400 Diastolic blood pressure 76 mm[Hg] Pacc 1 Work Phone: [facility] 09-22-2023 13:28-0400 Heart rate 66 /min Pacc 1 Work Phone: [facility] 09-22-2023 13:28-0400 Systolic blood pressure 145 mm[Hg] Pacc 1 Work Phone: [facility] 09-22-2023 13:190400 Body height 167.6 cm Pacc 1 Work Phone: [facility] 09-22-2023 13:19-0400 Body mass index (BMI) [Ratio] 30.89 kg/m2 Pacc 1 Work Phone: [facility] 09-22-2023 13:190400 Body temperature 97.81 [degF] Pacc 1 Work Phone: [facility] 09-22-2023 [id number] Body weight 86.8 kg Pacc 1 Work Phone: [facility] 09-22-2023 13:19-0400 Respiratory rate 18 /min Pacc 1 Work Phone: [facility] 09-22-2023 13:190400 SaO2% (BldA) [Mass fraction] 97 % Pacc 1 Work Phone: [facility] 07-14-2023 13:160400 Body height 167.6 cm Sabrina Muñiz MD Work Phone: [facility] 07-14-2023 13:16-0400 Body mass index (BMI) [Ratio] 30.76 kg/m2 Sabrina Muñiz MD Work Phone: [facility] 07-14-2023 13:16-0400 Body temperature 98.71 [degF] Sabrina Muñiz MD Work Phone: [facility] 07-14-2023 13:16-0400 Body weight 86.46 kg Sabrina Muñiz MD Work Phone: [facility] 07-14-2023 13:16-0400 Diastolic blood pressure 68 mm[Hg] Sabrina Muñiz MD Work Phone: [facility] 07-14-2023 13:16-0400 Systolic blood pressure 116 mm[Hg] Sabrina Muñiz MD Work Phone: [facility] 07-08-2023 08:08-0400 Body height 167.[address] Katy Faust Work Phone: 4(258)154-038206 [place] [address] 07-08-2023 08:08-0400 Body weight 85.[address] Katy Faust Work Phone: 8(718)735-942306 [place] [address] 07-07-2023 13:51-0400 Body mass index (BMI) [Ratio] 30.3 kg/m2 Dr. Katy Faust Work Phone: 2(819)191-956106 [place] [address] 06-11-2023 19:12-0400 Diastolic blood pressure 94 mm[Hg] Dr. Katy Faust Work Phone: 9(871)069-644706 [place] [address] 06-11-2023 19:12-0400 Heart rate 92 /min Dr. aKty Faust Work Phone: 0(065)887-278206 [place] [address] 06-11-2023 19:12-0400 Respiratory rate 20 /min Dr. Katy Faust Work Phone: 8(567)700-335206 [place] [address] 06-11-2023 19:12-0400 SaO2% (BldA) [Mass fraction] 96 % Dr. Katy Faust Work Phone: 1(988)578-535606 [place] [address] 06-11-2023 19:12-0400 Systolic blood pressure 156 mm[Hg] Dr. Katy Faust Work Phone: 8(332)949-295406 [place] [address] 06-11-2023 18:34-0400 Body height 167.[address] Katy Faust Work Phone: 6(741)093-138706 [place] [address] 06-11-2023 18:34-0400 Body mass index (BMI) [Ratio] 32.3 kg/m2 Dr. Katy Faust Work Phone: 7(433)231-292206 [place] [address] 06-11-2023 18:34-0400 Body temperature 95.8 [degF] Dr. Katy Faust Work Phone: 0(045)478-317906 [place] [address] 06-11-2023 18:34-0400 Body weight 90.[address] Katy Faust Work Phone: [facility] 05-31-2023 09:51-0400 Body temperature 97 [degF] Mary Anne Alejandro ANALYTICS INTERN.CUP MACHINE OPERATOR Work Phone: [facility] 05-31-2023 09:51-0400 Body weight 85.1 kg Mary Anne Alejandro ANALYTICS INTERN.CUP MACHINE OPERATOR Work Phone: [facility] 05-31-2023 09:51-0400 Diastolic blood pressure 62 mm[Hg] Mary Anne Alejandro ANALYTICS INTERN.CUP MACHINE OPERATOR Work Phone: [facility] 05-31-2023 09:51-0400 Heart rate 60 /min Mary Anne Alejandro ANALYTICS INTERN.CUP MACHINE OPERATOR Work Phone: [facility] 05-31-2023 09:51-0400 Respiratory rate 16 /min Mary Anne Alejandro ANALYTICS INTERN.CUP MACHINE OPERATOR Work Phone: [facility] 05-31-2023 09:51-0400 SaO2% (BldA) [Mass fraction] 97 % Mary Anne Alejandro ANALYTICS INTERN.CUP MACHINE OPERATOR Work Phone: [facility] 05-31-2023 09:51-0400 Systolic blood pressure 106 mm[Hg] Mary Anne Alejandro ANALYTICS INTERN.CUP MACHINE OPERATOR Work Phone: [facility] 05-20-2023 15:36-0400 Body temperature 98.2 [degF] Dr. Katy Faust Work Phone: [facility] 05-20-2023 15:36-0400 Body weight 85.[address] Katy Faust Work Phone: [facility] 05-20-2023 15:36-0400 Diastolic blood pressure 69 mm[Hg] Dr. Katy Faust Work Phone: [facility] 05-20-2023 15:36-0400 Heart rate 62 /min Dr. Katy Faust Work Phone: [facility] 05-20-2023 15:36-0400 Respiratory rate 16 /min Dr. Katy Faust Work Phone: [facility] 05-20-2023 15:36-0400 SaO2% (BldA) [Mass fraction] 97 % Dr. Katy Faust Work Phone: [facility] 05-20-2023 15:36-0400 Systolic blood pressure 121 mm[Hg] Dr. Katy Faust Work Phone: 5(682)292-972142 [place] [address] 05-05-2023 15:07-0500 Diastolic blood pressure 66 mm[Hg] Dr. Katy Faust Work Phone: 4(851)983-618942 [place] [address] 05-05-2023 15:07-0500 Heart rate 60 /min Dr. Katy Faust Work Phone: 4(844)539-279942 [place] [address] 05-05-2023 15:07-0500 Systolic blood pressure 144 mm[Hg] Dr. Katy Faust Work Phone: 7(187)338-395942 [place] [address] 05-05-2023 14:48-0500 Body height 167.[address] Katy Faust Work Phone: 9(900)180-827442 [place] [address] 05-05-2023 14:48-0500 Body mass index (BMI) [Ratio] 30.3 kg/m2 Dr. Katy Faust Work Phone: 9(230)661-198242 [place] [address] 05-05-2023 14:48-0500 Body weight 85.[address] Katy Faust Work Phone: 3(058)113-185042 [place] [address] 05-05-2023 14:48-0500 Respiratory rate 18 /min Dr. Katy Faust Work Phone: [facility] 12-03-2022 12:30-0400 Diastolic blood pressure 64 mm[Hg] Justin William MD Work Phone: [facility] 12-03-2022 12:30-0400 Heart rate 60 /min Justin William MD Work Phone: [facility] 12-03-2022 12:30-0400 Respiratory rate 17 /min Justin William MD Work Phone: [facility] 12-03-2022 12:30-0400 SaO2% (BldA) [Mass fraction] 99 % Justin William MD Work Phone: [facility] 12-03-2022 12:30-0400 Systolic blood pressure 109 mm[Hg] Justin William MD Work Phone: [facility] 12-03-2022 09:16-0400 Body temperature 97.5 [degF] Justin William MD Work Phone: [facility] 11-03-2022 10:24-0400 Body weight 77.07 kg Terry Balderrama MD Work Phone: [facility] 11-03-2022 10:24-0400 Diastolic blood pressure 76 mm[Hg] Terry Balderrama MD Work Phone: [facility] 11-03-2022 10:24-0400 Heart rate 56 /min Terry Balderrama MD Work Phone: [facility] 11-03-2022 10:24-0400 Systolic blood pressure 120 mm[Hg] Terry Balderrama MD Work Phone: [facility] 05-20-2022 13:44-0400 Body height 167.6 cm ANTONI Cheung MD Work Phone: [facility] 05-20-2022 13:44-0400 Body weight 68.95 kg ANTONI Cheung MD Work Phone: [facility] 05-20-2022 11:24-0400 Body height 167.6 cm Terry Balderrama MD Work Phone: [facility] 05-20-2022 11:24-0400 Body weight 68.95 kg Terry Balderrama MD Work Phone: [facility] 05-20-2022 11:24-0400 Diastolic blood pressure 74 mm[Hg] Terry Balderrama MD Work Phone: [facility] 05-20-2022 11:24-0400 Heart rate 87 /min Terry Balderrama MD Work Phone: [facility] 05-20-2022 11:24-0400 SaO2% (BldA) [Mass fraction] 98 % Terry Balderrama MD Work Phone: [facility] 05-20-2022 11:24-0400 Systolic blood pressure 111 mm[Hg] Terry Balderrama MD Work Phone: [facility] 05-20-2022 09:33-0400 Body height 167.6 cm Pacc 5 Work Phone: [facility] 05-20-2022 09:33-0400 Body temperature 97 [degF] Pacc 5 Work Phone: [facility] 05-20-2022 09:33-0400 Body weight 68.95 kg Pacc 5 Work Phone: [facility] 05-20-2022 09:33-0400 Diastolic blood pressure 74 mm[Hg] Pacc 5 Work Phone: [facility] 05-20-2022 09:33-0400 Heart rate 87 /min Pacc 5 Work Phone: [facility] 05-20-2022 09:33-0400 SaO2% (BldA) [Mass fraction] 98 % Pacc 5 Work Phone: [facility] 05-20-2022 09:33-0400 Systolic blood pressure 111 mm[Hg] Pacc 5 Work Phone: [facility] 04-23-2022 11:38-0500 Body temperature 98.1 [degF] Doris Rivera RN Work Phone: [facility] 04-23-2022 11:38-0500 Body weight 67.13 kg Doris Rivera RN Work Phone: [facility] 04-23-2022 11:38-0500 Diastolic blood pressure 64 mm[Hg] Doris Rivera RN Work Phone: [facility] 04-23-2022 11:38-0500 Heart rate 93 /min Doris Rivera RN Work Phone: [facility] 04-23-2022 11:38-0500 Respiratory rate 18 /min Doris Rivera RN Work Phone: [facility] 04-23-2022 11:38-0500 SaO2% (BldA) [Mass fraction] 97 % Doris Rivera RN Work Phone: [facility] 04-23-2022 11:38-0500 Systolic blood pressure 90 mm[Hg] Doris Rivera RN Work Phone: [facility] 04-22-2022 16:12-0500 Body weight 67.59 kg Katy Faust MD Work Phone: [facility] 04-22-2022 16:12-0500 Diastolic blood pressure 76 mm[Hg] Katy Faust MD Work Phone: [facility] 04-22-2022 16:12-0500 Heart rate 103 /min Katy Faust MD Work Phone: [facility] 04-22-2022 16:12-0500 Respiratory rate 18 /min Katy Faust MD Work Phone: [facility] 04-22-2022 16:12-0500 Systolic blood pressure 109 mm[Hg] Katy Faust MD Work Phone: [facility] 04-22-2022 13:50-0500 Body temperature 97.9 [degF] Estefany Stern PT Work Phone: [facility] 04-22-2022 13:50-0500 Body weight 67.41 kg Estefany Stern PT Work Phone: [facility] 04-22-2022 13:50-0500 Diastolic blood pressure 76 mm[Hg] Estefany Stern PT Work Phone: [facility] 04-22-2022 13:50-0500 Heart rate 114 /min Estefany Stern PT Work Phone: [facility] 04-22-2022 13:50-0500 Respiratory rate 18 /min Estefany Stern PT Work Phone: [facility] 04-22-2022 13:50-0500 SaO2% (BldA) [Mass fraction] 99 % Estefany Stern PT Work Phone: [facility] 04-22-2022 13:50-0500 Systolic blood pressure 108 mm[Hg] Estefany Stern PT Work Phone: [facility] 04-21-2022 11:48-0500 Heart rate 109 /min Isela Patrizia THREAD SEPARATOR Work Phone: [facility] 04-21-2022 11:48-0500 SaO2% (BldA) [Mass fraction] 97 % Isela Patrizia THREAD SEPARATOR Work Phone: [facility] 04-21-2022 11:13-0500 Body temperature 97.5 [degF] Isela Patrizia THREAD SEPARATOR Work Phone: [facility] 04-21-2022 11:13-0500 Diastolic blood pressure 66 mm[Hg] Isela Patrizia THREAD SEPARATOR Work Phone: [facility] 04-21-2022 11:13-0500 Respiratory rate 18 /min Isela Patrizia THREAD SEPARATOR Work Phone: [facility] 04-21-2022 11:13-0500 Systolic blood pressure 110 mm[Hg] Isela Patrizia THREAD SEPARATOR Work Phone: [facility] 04-17-2022 11:42-0500 Diastolic blood pressure 72 mm[Hg] Isela Patrizia THREAD SEPARATOR Work Phone: [facility] 04-17-2022 11:42-0500 Heart rate 94 /min Isela Patrizia THREAD SEPARATOR Work Phone: [facility] 04-17-2022 11:42-0500 SaO2% (BldA) [Mass fraction] 99 % Isela Patrizia THREAD SEPARATOR Work Phone: [facility] 04-17-2022 11:42-0500 Systolic blood pressure 102 mm[Hg] Isela Patrizia THREAD SEPARATOR Work Phone: [facility] 04-17-2022 11:16-0500 Respiratory rate 18 /min Isela Patrizia THREAD SEPARATOR Work Phone: [facility] 04-15-2022 11:15-0500 Body temperature 97.39 [degF] Isela Patrizia THREAD SEPARATOR Work Phone: [facility] 04-15-2022 11:15-0500 Diastolic blood pressure 68 mm[Hg] Isela Patrizia THREAD SEPARATOR Work Phone: [facility] 04-15-2022 11:15-0500 Heart rate 86 /min Isela Patrizia THREAD SEPARATOR Work Phone: [facility] 04-15-2022 11:15-0500 Respiratory rate 18 /min Isela Patrizia THREAD SEPARATOR Work Phone: [facility] 04-15-2022 11:15-0500 SaO2% (BldA) [Mass fraction] 99 % Isela Patrizia THREAD SEPARATOR Work Phone: [facility] 04-15-2022 11:15-0500 Systolic blood pressure 116 mm[Hg] Isela Patrizia THREAD SEPARATOR Work Phone: [facility] 04-13-2022 11:50-0500 Body temperature 97.9 [degF] Britta Mantilla RN Work Phone: [facility] 04-13-2022 11:50-0500 Diastolic blood pressure 78 mm[Hg] Britta Mantilla RN Work Phone: [facility] 04-13-2022 11:50-0500 Heart rate 84 /min Britta Mantilla RN Work Phone: [facility] 04-13-2022 11:50-0500 Respiratory rate 16 /min Britta Mantilla RN Work Phone: [facility] 04-13-2022 11:50-0500 SaO2% (BldA) [Mass fraction] 99 % Britta Most RN Work Phone: [facility] 04-13-2022 11:50-0500 Systolic blood pressure 118 mm[Hg] Britta Most RN Work Phone: [facility] 04-09-2022 11:11-0500 Body temperature 97.9 [degF] Britta Most RN Work Phone: [facility] 04-09-2022 11:11-0500 Body weight 63.96 kg Britta Most RN Work Phone: [facility] 04-09-2022 11:11-0500 Diastolic blood pressure 70 mm[Hg] Britta Most RN Work Phone: [facility] 04-09-2022 11:11-0500 Heart rate 92 /min Britta Most RN Work Phone: [facility] 04-09-2022 11:11-0500 Respiratory rate 16 /min Britta Most RN Work Phone: [facility] 04-09-2022 11:11-0500 SaO2% (BldA) [Mass fraction] 97 % Britta Most RN Work Phone: [facility] 04-09-2022 11:11-0500 Systolic blood pressure 116 mm[Hg] Britta Most RN Work Phone: [facility] 04-07-2022 11:50-0500 Heart rate 91 /min Isela Patrizia THREAD SEPARATOR Work Phone: [facility] 04-07-2022 11:50-0500 SaO2% (BldA) [Mass fraction] 99 % Isela Patrizia THREAD SEPARATOR Work Phone: [facility] 04-07-2022 11:19-0500 Diastolic blood pressure 70 mm[Hg] Isela Patrizia THREAD SEPARATOR Work Phone: [facility] 04-07-2022 11:19-0500 Systolic blood pressure 110 mm[Hg] Isela Patrizia THREAD SEPARATOR Work Phone: [facility] 04-07-2022 11:13-0500 Body temperature 97.59 [degF] Isela Acharya THREAD SEPARATOR Work Phone: [facility] 04-07-2022 11:13-0500 Respiratory rate 18 /min Isela Patrizia THREAD SEPARATOR Work Phone: [facility] 04-06-2022 14:47-0500 Body height 165.1 cm Norm Elena ANALYTICS INTERN.CUP MACHINE OPERATOR Work Phone: [facility] 04-06-2022 14:47-0500 Body weight 64.86 kg Norm Elena ANALYTICS INTERN.CUP MACHINE OPERATOR Work Phone: [facility] 04-06-2022 14:47-0500 Diastolic blood pressure 80 mm[Hg] Norm Elena ANALYTICS INTERN.CUP MACHINE OPERATOR Work Phone: [facility] 04-06-2022 14:47-0500 Heart rate 115 /min Norm Elena ANALYTICS INTERN.CUP MACHINE OPERATOR Work Phone: [facility] 04-06-2022 14:47-0500 SaO2% (BldA) [Mass fraction] 93 % Norm Elena ANALYTICS INTERN.CUP MACHINE OPERATOR Work Phone: [facility] 04-06-2022 14:47-0500 Systolic blood pressure 98 mm[Hg] Norm Elena ANALYTICS INTERN.CUP MACHINE OPERATOR Work Phone: [facility] 04-06-2022 13:28-0500 Body weight 64.5 kg Britta Mantilla RN Work Phone: [facility] 04-06-2022 13:28-0500 Diastolic blood pressure 60 mm[Hg] Britta Mantilla RN Work Phone: [facility] 04-06-2022 13:28-0500 Systolic blood pressure 88 mm[Hg] Britta Mantilla RN Work Phone: [facility] 04-06-2022 13:27-0500 Body temperature 97.9 [degF] Britta Mantilla RN Work Phone: [facility] 04-06-2022 13:27-0500 Heart rate 108 /min Britta Most RN Work Phone: [facility] 04-06-2022 13:27-0500 Respiratory rate 16 /min Britta Most RN Work Phone: [facility] 04-06-2022 13:27-0500 SaO2% (BldA) [Mass fraction] 97 % Britta Most RN Work Phone: [facility] 04-03-2022 11:44-0500 Heart rate 99 /min Isela Patrizia THREAD SEPARATOR Work Phone: [facility] 04-03-2022 11:44-0500 SaO2% (BldA) [Mass fraction] 99 % Isela Patrizia THREAD SEPARATOR Work Phone: [facility] 04-03-2022 11:35-0500 Body temperature 97.81 [degF] Isela Patrizia THREAD SEPARATOR Work Phone: [facility] 04-03-2022 11:35-0500 Diastolic blood pressure 76 mm[Hg] Isela Patrizia THREAD SEPARATOR Work Phone: [facility] 04-03-2022 11:35-0500 Respiratory rate 18 /min Isela Patrizia THREAD SEPARATOR Work Phone: [facility] 04-03-2022 11:35-0500 Systolic blood pressure 118 mm[Hg] Isela Patrizia THREAD SEPARATOR Work Phone: [facility] 04-02-2022 17:14-0500 Body temperature 97.9 [degF] Britta Most RN Work Phone: [facility] 04-02-2022 17:14-0500 Diastolic blood pressure 78 mm[Hg] Britta Most RN Work Phone: [facility] 04-02-2022 17:14-0500 Heart rate 88 /min Britta Most RN Work Phone: [facility] 04-02-2022 17:14-0500 Respiratory rate 16 /min Britta Most RN Work Phone: [facility] 04-02-2022 17:14-0500 SaO2% (BldA) [Mass fraction] 98 % Britta Most RN Work Phone: [facility] 04-02-2022 17:14-0500 Systolic blood pressure 118 mm[Hg] Britta Most RN Work Phone: [facility] 03-31-2022 15:15-0500 Heart rate 110 /min Isela Patrizia THREAD SEPARATOR Work Phone: [facility] 03-31-2022 15:15-0500 SaO2% (BldA) [Mass fraction] 99 % Isela Patrizia THREAD SEPARATOR Work Phone: [facility] 03-31-2022 14:40-0500 Body temperature 97.59 [degF] Isela Patrizia THREAD SEPARATOR Work Phone: [facility] 03-31-2022 14:40-0500 Body weight 66.68 kg Isela Patrizia THREAD SEPARATOR Work Phone: [facility] 03-31-2022 14:40-0500 Diastolic blood pressure 66 mm[Hg] Isela Patrizia THREAD SEPARATOR Work Phone: [facility] 03-31-2022 14:40-0500 Respiratory rate 16 /min Isela Patrizia THREAD SEPARATOR Work Phone: [facility] 03-31-2022 14:40-0500 Systolic blood pressure 114 mm[Hg] Isela Patrizia THREAD SEPARATOR Work Phone: [facility] 03-30-2022 15:12-0500 Body temperature 98.01 [degF] Britta Most RN Work Phone: [facility] 03-30-2022 15:12-0500 Diastolic blood pressure 82 mm[Hg] Britta Most RN Work Phone: [facility] 03-30-2022 15:12-0500 Heart rate 84 /min Britta Most RN Work Phone: [facility] 03-30-2022 15:12-0500 Respiratory rate 16 /min Britta Most RN Work Phone: [facility] 03-30-2022 15:12-0500 SaO2% (BldA) [Mass fraction] 98 % Britta Mantilla RN Work Phone: [facility] 03-30-2022 15:12-0500 Systolic blood pressure 122 mm[Hg] Britta Mantilla RN Work Phone: [facility] 03-27-2022 14:33-0500 Heart rate 100 /min Isela Patrizia THREAD SEPARATOR Work Phone: [facility] 03-27-2022 14:33-0500 SaO2% (BldA) [Mass fraction] 99 % Isela Patrizia THREAD SEPARATOR Work Phone: [facility] 03-27-2022 14:14-0500 Body temperature 97.59 [degF] Isela Patrizia THREAD SEPARATOR Work Phone: [facility] 03-27-2022 14:14-0500 Diastolic blood pressure 74 mm[Hg] Isela Patrizia THREAD SEPARATOR Work Phone: [facility] 03-27-2022 14:14-0500 Respiratory rate 18 /min Isela Patrizia THREAD SEPARATOR Work Phone: [facility] 03-27-2022 14:14-0500 Systolic blood pressure 122 mm[Hg] Isela Patrizia THREAD SEPARATOR Work Phone: [facility] 03-26-2022 12:46-0500 Body temperature 97.9 [degF] Doris Rivera RN Work Phone: [facility] 03-26-2022 12:46-0500 Body weight 68.04 kg Doris Rivera RN Work Phone: [facility] 03-26-2022 12:46-0500 Diastolic blood pressure 83 mm[Hg] Doris Rivera RN Work Phone: [facility] 03-26-2022 12:46-0500 Heart rate 82 /min Doris Rivera RN Work Phone: [facility] 03-26-2022 12:46-0500 Respiratory rate 20 /min Doris Rivera RN Work Phone: [facility] 03-26-2022 12:46-0500 SaO2% (BldA) [Mass fraction] 94 % Doris Rivera RN Work Phone: [facility] 03-26-2022 12:46-0500 Systolic blood pressure 114 mm[Hg] Doris Rivera RN Work Phone: [facility] 03-25-2022 12:07-0500 Diastolic blood pressure 77 mm[Hg] Isela Patrizia THREAD SEPARATOR Work Phone: [facility] 03-25-2022 12:07-0500 Heart rate 77 /min Isela Patrizia THREAD SEPARATOR Work Phone: [facility] 03-25-2022 12:07-0500 SaO2% (BldA) [Mass fraction] 98 % Isela Patrizia THREAD SEPARATOR Work Phone: [facility] 03-25-2022 12:07-0500 Systolic blood pressure 110 mm[Hg] Isela Patrizia THREAD SEPARATOR Work Phone: [facility] 03-25-2022 11:24-0500 Body temperature 97.81 [degF] Isela Patrizia THREAD SEPARATOR Work Phone: [facility] 03-25-2022 11:24-0500 Respiratory rate 18 /min Isela Patrizia THREAD SEPARATOR Work Phone: [facility] 03-24-2022 10:53-0500 Body temperature 97.7 [degF] Britta Mantilla RN Work Phone: [facility] 03-24-2022 10:53-0500 Body weight 68.4 kg Britta Mantilla RN Work Phone: [facility] 03-24-2022 10:53-0500 Diastolic blood pressure 84 mm[Hg] Britta Mantilla RN Work Phone: [facility] 03-24-2022 10:53-0500 Heart rate 72 /min Britta Mantilla RN Work Phone: [facility] 03-24-2022 10:53-0500 Respiratory rate 16 /min Britta Mantilla RN Work Phone: [facility] 03-24-2022 10:53-0500 SaO2% (BldA) [Mass fraction] 98 % Britta Mantilla RN Work Phone: [facility] 03-24-2022 10:53-0500 Systolic blood pressure 124 mm[Hg] Britta Mantilla RN Work Phone: [facility] 03-23-2022 13:25-0500 Body height 167.6 cm Skyla Edmondsonams ANALYTICS INTERN.CUP MACHINE OPERATOR Work Phone: [facility] 03-23-2022 13:25-0500 Body weight 70.4 kg Skyla Reinaams ANALYTICS INTERN.CUP MACHINE OPERATOR Work Phone: [facility] 03-23-2022 11:27-0500 Diastolic blood pressure 77 mm[Hg] Terry Balderrama MD Work Phone: [facility] 03-23-2022 11:27-0500 Heart rate 97 /min Terry Balderrama MD Work Phone: [facility] 03-23-2022 11:27-0500 Systolic blood pressure 113 mm[Hg] Terry Balderrama MD Work Phone: [facility] 03-23-2022 11:25-0500 Body weight 68.04 kg Terry Balderrama MD Work Phone: [facility] 03-19-2022 12:03-0500 Heart rate 92 /min Isela Patrizia THREAD SEPARATOR Work Phone: [facility] 03-19-2022 12:03-0500 SaO2% (BldA) [Mass fraction] 95 % Isela Patrizia THREAD SEPARATOR Work Phone: [facility] 03-19-2022 11:37-0500 Body temperature 97.59 [degF] Isela Patrizia THREAD SEPARATOR Work Phone: [facility] 03-19-2022 11:37-0500 Diastolic blood pressure 66 mm[Hg] Isela Patrizia THREAD SEPARATOR Work Phone: [facility] 03-19-2022 11:37-0500 Respiratory rate 18 /min Isela Patrizia THREAD SEPARATOR Work Phone: [facility] 03-19-2022 11:37-0500 Systolic blood pressure 116 mm[Hg] Isela Patrizia THREAD SEPARATOR Work Phone: [facility] 03-19-2022 09:20-0500 Body temperature 97.3 [degF] Britta Mantilla RN Work Phone: [facility] 03-19-2022 09:20-0500 Diastolic blood pressure 76 mm[Hg] Britta Mantilla RN Work Phone: [facility] 03-19-2022 09:20-0500 Heart rate 76 /min Britta Mantilla RN Work Phone: [facility] 03-19-2022 09:20-0500 Respiratory rate 16 /min Britta Mantilla RN Work Phone: [facility] 03-19-2022 09:20-0500 SaO2% (BldA) [Mass fraction] 98 % Brittadominique Mantilla RN Work Phone: [facility] 03-19-2022 09:20-0500 Systolic blood pressure 108 mm[Hg] Britta Mantilla RN Work Phone: [facility] 03-18-2022 11:27-0500 Body temperature 96.49 [degF] Russ Monteiro MD Work Phone: [facility] 03-18-2022 11:27-0500 Body weight 71.22 kg Russ Monteiro MD Work Phone: [facility] 03-18-2022 11:27-0500 Diastolic blood pressure 66 mm[Hg] Russ Monteiro MD Work Phone: [facility] 03-18-2022 11:27-0500 Heart rate 84 /min Russ Monteiro MD Work Phone: [facility] 03-18-2022 11:27-0500 Respiratory rate 20 /min Russ Monteiro MD Work Phone: [facility] 03-18-2022 11:27-0500 SaO2% (BldA) [Mass fraction] 100 % Russ Monteiro MD Work Phone: [facility] 03-18-2022 11:27-0500 Systolic blood pressure 110 mm[Hg] Russ Monteiro MD Work Phone: [facility] 03-15-2022 15:37-0500 Body temperature 97.3 [degF] Britta Mantilla RN Work Phone: [facility] 03-15-2022 15:37-0500 Diastolic blood pressure 78 mm[Hg] Britta Mantilla RN Work Phone: [facility] 03-15-2022 15:37-0500 Heart rate 96 /min Britta Mantilla RN Work Phone: [facility] 03-15-2022 15:37-0500 Respiratory rate 16 /min Britta Mantilla RN Work Phone: [facility] 03-15-2022 15:37-0500 SaO2% (BldA) [Mass fraction] 98 % Britta Mantilla RN Work Phone: [facility] 03-15-2022 15:37-0500 Systolic blood pressure 124 mm[Hg] Britta Mantilla RN Work Phone: [facility] 03-12-2022 09:36-0500 Body temperature 97.7 [degF] Estefany Stern PT Work Phone: [facility] 03-12-2022 09:36-0500 Diastolic blood pressure 74 mm[Hg] Estefany Stern PT Work Phone: [facility] 03-12-2022 09:36-0500 Heart rate 114 /min Estefany Stern PT Work Phone: [facility] 03-12-2022 09:36-0500 Respiratory rate 18 /min Estefany Stern PT Work Phone: [facility] 03-12-2022 09:36-0500 SaO2% (BldA) [Mass fraction] 97 % Estefany HalStuart PT Work Phone: [facility] 03-12-2022 09:36-0500 Systolic blood pressure 120 mm[Hg] Estefany Stern PT Work Phone: [facility] 03-02-2022 06:35-0500 Diastolic blood pressure 78 mm[Hg] No Primary Care Physician [facility] 03-02-2022 06:35-0500 Heart rate 994 /min No Primary Care Physician [facility] 03-02-2022 06:35-0500 Respiratory rate 18 /min No Primary Care Physician [facility] 03-02-2022 06:35-0500 SaO2% (BldA) [Mass fraction] 95 % No Primary Care Physician [facility] 03-02-2022 06:35-0500 Systolic blood pressure 105 mm[Hg] No Primary Care Physician [facility] 03-02-2022 05:54-0500 Body temperature 98 [degF] No Primary Care Physician [facility] 03-02-2022 05:54-0500 Diastolic blood pressure 58 mm[Hg] No Primary Care Physician [facility] Work Phone: 03-02-2022 05:54-0500 Heart rate 110 /min No Primary Care Physician [facility] Work Phone: 03-02-2022 05:54-0500 Respiratory rate 20 /min No Primary Care Physician [facility] Work Phone: 03-02-2022 05:54-0500 SaO2% (BldA) [Mass fraction] 97 % No Primary Care Physician [facility] Work Phone: 03-02-2022 05:54-0500 Systolic blood pressure 83 mm[Hg] No Primary Care Physician [facility] Work Phone: 03-01-2022 20:13-0500 Body height 167.64 cm No Primary Care Physician [facility] 03-01-2022 20:13-0500 Body mass index (BMI) [Ratio] 28.6 kg/m2 No Primary Care Physician [facility] 03-01-2022 20:13-0500 Body weight 80.5 kg No Primary Care Physician [facility] 02-27-2022 05:44-0500 Diastolic blood pressure 72 mm[Hg] No Primary Care Physician [facility] 02-27-2022 05:44-0500 Heart rate 81 /min No Primary Care Physician [facility] 02-27-2022 05:44-0500 Respiratory rate 16 /min No Primary Care Physician [facility] 02-27-2022 05:44-0500 Systolic blood pressure 126 mm[Hg] No Primary Care Physician [facility] 02-27-2022 04:02-0500 Body height 167.64 cm No Primary Care Physician [facility] Work Phone: 02-27-2022 04:02-0500 Body mass index (BMI) [Ratio] 29.6 kg/m2 No Primary Care Physician [facility] 02-27-2022 04:02-0500 Body temperature 96.8 [degF] No Primary Care Physician [facility] 02-27-2022 04:02-0500 Body weight 83.3 kg No Primary Care Physician [facility] 02-27-2022 04:02-0500 SaO2% (BldA) [Mass fraction] 94 % No Primary Care Physician [facility] 02-26-2022 09:52-0500 Heart rate 117 /min Estefany Stern PT Work Phone: [facility] 02-26-2022 09:52-0500 SaO2% (BldA) [Mass fraction] 98 % Estefany Stern PT Work Phone: [facility] 02-26-2022 09:10-0500 Body temperature 97.7 [degF] Estefany Stern PT Work Phone: [facility] 02-26-2022 09:10-0500 Diastolic blood pressure 80 mm[Hg] Estefany Stern PT Work Phone: [facility] 02-26-2022 09:10-0500 Respiratory rate 18 /min Estefany Stern PT Work Phone: [facility] 02-26-2022 09:10-0500 Systolic blood pressure 128 mm[Hg] Estefany Stern PT Work Phone: [facility] 02-25-2022 10:12-0500 Body temperature 97.81 [degF] Jovanna Heaton RN Work Phone: [facility] 02-25-2022 10:12-0500 Diastolic blood pressure 74 mm[Hg] Jovanna Heaton RN Work Phone: [facility] 02-25-2022 10:12-0500 Heart rate 101 /min Jovanna Heaton RN Work Phone: [facility] 02-25-2022 10:12-0500 Respiratory rate 18 /min Jovanna Heaton RN Work Phone: [facility] 02-25-2022 10:12-0500 SaO2% (BldA) [Mass fraction] 95 % Jovanna Heaton RN Work Phone: [facility] 02-25-2022 10:12-0500 Systolic blood pressure 142 mm[Hg] Jovanna Heaton RN Work Phone: [facility] 02-01-2022 16:43-0500 Diastolic blood pressure 72 mm[Hg] No Primary Care Physician [facility] 02-01-2022 16:43-0500 Heart rate 93 /min No Primary Care Physician [facility] 02-01-2022 16:43-0500 Respiratory rate 18 /min No Primary Care Physician [facility] 02-01-2022 16:43-0500 SaO2% (BldA) [Mass fraction] 92 % No Primary Care Physician [facility] 02-01-2022 16:43-0500 Systolic blood pressure 118 mm[Hg] No Primary Care Physician [facility] 02-01-2022 16:35-0500 Inhaled oxygen flow rate 2 L/min No Primary Care Physician [facility] 02-01-2022 16:30-0500 Body temperature 96 [degF] No Primary Care Physician [facility] 02-01-2022 13:45-0500 Body height 167.64 cm No Primary Care Physician [facility] Work Phone: 02-01-2022 13:45-0500 Body mass index (BMI) [Ratio] 32.3 kg/m2 No Primary Care Physician [facility] 02-01-2022 13:45-0500 Body weight 90.71 kg No Primary Care Physician [facility] 01-30-2022 11:08-0500 Diastolic blood pressure 70 mm[Hg] Britta Mantilla RN Work Phone: [facility] 01-30-2022 11:08-0500 Systolic blood pressure 102 mm[Hg] Britta Mantilla RN Work Phone: [facility] 01-30-2022 10:28-0500 Body temperature 98.1 [degF] Britta Mantilla RN Work Phone: [facility] 01-30-2022 10:28-0500 Heart rate 64 /min Britta Mantilla RN Work Phone: [facility] 01-30-2022 10:28-0500 Respiratory rate 16 /min Brittadominique Mantilla RN Work Phone: [facility] 01-30-2022 10:28-0500 SaO2% (BldA) [Mass fraction] 98 % Brittadominique Mantilla RN Work Phone: [facility] 01-09-2022 10:02-0500 Body height 167.64 cm No Primary Care Physician [facility] Work Phone: 01-07-2022 08:47-0500 Diastolic blood pressure 78 mm[Hg] Pacc 4 Work Phone: [facility] 01-07-2022 08:47-0500 Systolic blood pressure 150 mm[Hg] Pacc 4 Work Phone: [facility] 01-07-2022 07:54-0500 Body height 167.6 cm Pacc 4 Work Phone: [facility] 01-07-2022 07:54-0500 Body temperature 97.59 [degF] Pac 4 Work Phone: [facility] 01-07-2022 07:54-0500 Body weight 88.63 kg Pac 4 Work Phone: [facility] 01-07-2022 07:54-0500 Heart rate 47 /min Pac 4 Work Phone: [facility] 01-07-2022 07:54-0500 SaO2% (BldA) [Mass fraction] 97 % Pac 4 Work Phone: [facility] 12-10-2021 09:50-0400 Body height 167.6 cm ANTONI Cheung MD Work Phone: [facility] 12-10-2021 09:50-0400 Body weight 85.73 kg ANTONI Cheung MD Work Phone: [facility] 09-17-2021 14:46-0400 Body height 167.6 cm ANTONI Cheung MD Work Phone: [facility] 09-17-2021 14:46-0400 Body weight 84.82 kg ANTONI Cheung MD Work Phone: [facility] 07-18-2021 12:41-0400 Body temperature 97.11 [degF] Alexia Rao ANALYTICS INTERN.CUP MACHINE OPERATOR Work Phone: [facility] 07-18-2021 12:41-0400 Body weight 85.96 kg Alexia Rao ANALYTICS INTERN.CUP MACHINE OPERATOR Work Phone: [facility] 07-18-2021 12:41-0400 Diastolic blood pressure 72 mm[Hg] Alexia Rao ANALYTICS INTERN.CUP MACHINE OPERATOR Work Phone: [facility] 07-18-2021 12:41-0400 Heart rate 52 /min Alexia Rao ANALYTICS INTERN.CUP MACHINE OPERATOR Work Phone: [facility] 07-18-2021 12:41-0400 SaO2% (BldA) [Mass fraction] 97 % [place] Rao ANALYTICS INTERN.CUP MACHINE OPERATOR Work Phone: [facility] 07-18-2021 12:41-0400 Systolic blood pressure 131 mm[Hg] Alexia Rao ANALYTICS INTERNBOGDAN Work Phone: [facility] 07-15-2021 14:15-0400 Diastolic blood pressure 84 mm[Hg] Marisela Rome MD, MD Work Phone: [facility] 07-15-2021 14:15-0400 Heart rate 58 /min Marisela Rome MD, MD Work Phone: [facility] 07-15-2021 14:15-0400 Systolic blood pressure 177 mm[Hg] Marisela Rome MD, MD Work Phone: [facility] 07-15-2021 14:12-0400 Body temperature 97.81 [degF] Marisela Rome MD, MD Work Phone: [facility] 07-15-2021 14:12-0400 Body weight 86.86 kg Marisela Roem MD, MD Work Phone: [facility] 07-15-2021 14:12-0400 Respiratory rate 15 /min Marisela Rome MD, MD Work Phone: [facility] 07-15-2021 14:12-0400 SaO2% (BldA) [Mass fraction] 99 % Marisela Rome MD, MD Work Phone: [facility] 07-08-2021 13:39-0400 Body temperature 97 [degF] Marisela Rome MD, MD Work Phone: [facility] 07-08-2021 13:39-0400 Body weight 86.64 kg Marisela Rome MD, MD Work Phone: [facility] 07-08-2021 13:39-0400 Diastolic blood pressure 77 mm[Hg] Marisela Rome MD, MD Work Phone: [facility] 07-08-2021 13:39-0400 Heart rate 70 /min Marisela Rome MD, MD Work Phone: [facility] 07-08-2021 13:39-0400 SaO2% (BldA) [Mass fraction] 94 % Marisela Rome MD, MD Work Phone: [facility] 07-08-2021 13:39-0400 Systolic blood pressure 146 mm[Hg] Marisela Rome MD, MD Work Phone: [facility] 07-04-2021 12:35-0400 Body temperature 97.39 [degF] Alexia Rao ANALYTICS INTERN.CUP MACHINE OPERATOR Work Phone: [facility] 07-04-2021 12:35-0400 Body weight 87.54 kg [place] Rao ANALYTICS INTERN.CUP MACHINE OPERATOR Work Phone: [facility] 07-04-2021 12:35-0400 Diastolic blood pressure 64 mm[Hg] Alexia Rao ANALYTICS INTERN.CUP MACHINE OPERATOR Work Phone: [facility] 07-04-2021 12:35-0400 Heart rate 52 /min [place] Rao ANALYTICS INTERN.CUP MACHINE OPERATOR Work Phone: [facility] 07-04-2021 12:35-0400 SaO2% (BldA) [Mass fraction] 99 % [place] Rao ANALYTICS INTERN.CUP MACHINE OPERATOR Work Phone: [facility] 07-04-2021 12:35-0400 Systolic blood pressure 111 mm[Hg] Alexia Rao ANALYTICS INTERN.CUP MACHINE OPERATOR Work Phone: [facility] 07-01-2021 13:56-0400 Diastolic blood pressure 71 mm[Hg] Marisela Rome MD, MD Work Phone: [facility] 07-01-2021 13:56-0400 Heart rate 54 /min Marisela Rome MD, MD Work Phone: [facility] 07-01-2021 13:56-0400 Systolic blood pressure 146 mm[Hg] Marisela Rome MD, MD Work Phone: [facility] 07-01-2021 13:31-0400 Body temperature 97 [degF] Marisela Rome MD, MD Work Phone: [facility] 07-01-2021 13:31-0400 Body weight 87.09 kg Marisela Rome MD, MD Work Phone: [facility] 07-01-2021 13:31-0400 Respiratory rate 15 /min Marisela Rome MD, MD Work Phone: [facility] 07-01-2021 13:31-0400 SaO2% (BldA) [Mass fraction] 99 % Marisela Rome MD, MD Work Phone: [facility] 06-24-2021 13:59-0400 Body temperature 97.11 [degF] Marisela Rome MD, MD Work Phone: [facility] 06-24-2021 13:59-0400 Body weight 87.32 kg Marisela Rome MD, MD Work Phone: [facility] 06-24-2021 13:59-0400 Diastolic blood pressure 69 mm[Hg] Marisela Rome MD, MD Work Phone: [facility] 06-24-2021 13:59-0400 Heart rate 61 /min Marisela Rome MD, MD Work Phone: [facility] 06-24-2021 13:59-0400 Respiratory rate 16 /min Marisela Rome MD, MD Work Phone: [facility] 06-24-2021 13:59-0400 SaO2% (BldA) [Mass fraction] 98 % Marisela Rome MD, MD Work Phone: [facility] 06-24-2021 13:59-0400 Systolic blood pressure 152 mm[Hg] Marisela Rome MD, MD Work Phone: [facility] 06-18-2021 08:45-0400 Body temperature 97.5 [degF] Helen Lakhani DO Work Phone: [facility] 06-18-2021 08:45-0400 Body weight 89.36 kg Helen Lakhani DO Work Phone: [facility] 06-18-2021 08:45-0400 Diastolic blood pressure 67 mm[Hg] Helen Masci DO Work Phone: [facility] 06-18-2021 08:45-0400 Heart rate 60 /min Helen Lakhani DO Work Phone: [facility] 06-18-2021 08:45-0400 SaO2% (BldA) [Mass fraction] 98 % Helen Lakhani [employer] Work Phone: [facility] 06-18-2021 08:45-0400 Systolic blood pressure 150 mm[Hg] Helen Lakhani DO Work Phone: [facility] 06-09-2021 08:54-0400 Body height 168.91 cm [facility] Work Phone: 06-09-2021 08:54-0400 Body mass index (BMI) [Ratio] 30.9 kg/m2 [facility] Work Phone: 06-09-2021 08:54-0400 Body temperature 97 [degF] [facility] Work Phone: 06-09-2021 08:54-0400 Body weight 88.45 kg [facility] Work Phone: 06-09-2021 08:54-0400 Diastolic blood pressure 72 mm[Hg] [facility] Work Phone: 06-09-2021 08:54-0400 Heart rate 52 /min [facility] Work Phone: 06-09-2021 08:54-0400 Respiratory rate 18 /min [facility] Work Phone: 06-09-2021 08:54-0400 SaO2% (BldA) [Mass fraction] 97 % [facility] Work Phone: 06-09-2021 08:54-0400 Systolic blood pressure 141 mm[Hg] [facility] Work Phone: 06-06-2021 13:26-0400 Body height 168 cm Helen Lakhani [employer] Work Phone: [facility] 06-06-2021 13:26-0400 Body temperature 96.91 [degF] Helen Lakhani DO Work Phone: [facility] 06-06-2021 [id number] Body weight 89.36 kg Helen Lakhani DO Work Phone: [facility] 06-06-2021 13:26-0400 Diastolic blood pressure 74 mm[Hg] Helen Lakhani DO Work Phone: [facility] 06-06-2021 13:26-0400 Heart rate 56 /min Helen Lakhani DO Work Phone: [facility] 06-06-2021 13:26-0400 SaO2% (BldA) [Mass fraction] 97 % Helen Lakhani DO Work Phone: [facility] 06-06-2021 13:26-0400 Systolic blood pressure 170 mm[Hg] Helen Lakhani DO Work Phone: [facility] 06-02-2021 09:19-0400 Diastolic blood pressure 75 mm[Hg] Marisela Rome MD, MD Work Phone: [facility] 06-02-2021 09:19-0400 Heart rate 48 /min Marisela Rome MD, MD Work Phone: [facility] 06-02-2021 09:19-0400 Systolic blood pressure 163 mm[Hg] Marisela Rome MD, MD Work Phone: [facility] 06-02-2021 09:12-0400 Body temperature 97.2 [degF] Marisela Rome MD, MD Work Phone: [facility] 06-02-2021 09:12-0400 Body weight 89.81 kg Marisela oRme MD, MD Work Phone: [facility] 06-02-2021 09:12-0400 Respiratory rate 15 /min Marisela Rome MD, MD Work Phone: [facility] 06-02-2021 09:12-0400 SaO2% (BldA) [Mass fraction] 98 % Marisela Rome MD, MD Work Phone: [facility] 05-29-2021 11:10-0400 Body temperature 97.2 [degF] Susu Huitron MD Work Phone: [facility] 05-29-2021 11:10-0400 Diastolic blood pressure 79 mm[Hg] Susu Huitron MD Work Phone: [facility] 05-29-2021 11:10-0400 Heart rate 51 /min Susu Huitron MD Work Phone: [facility] 05-29-2021 11:10-0400 Respiratory rate 16 /min Susu Huitron MD Work Phone: [facility] 05-29-2021 11:10-0400 SaO2% (BldA) [Mass fraction] 98 % Susu Huitron MD Work Phone: [facility] 05-29-2021 11:10-0400 Systolic blood pressure 135 mm[Hg] Susu Huitron MD Work Phone: [facility] 05-29-2021 11:04-0400 Body weight 88.72 kg Susu Huitron MD Work Phone: [facility] 05-29-2021 10:07-0400 Body height 167.6 cm Caty Bowens MD Work Phone: [facility] 05-29-2021 10:07-0400 Body temperature 97.2 [degF] Caty Bowens MD Work Phone: [facility] 05-29-2021 10:07-0400 Body weight 89.36 kg Caty Bowens MD Work Phone: [facility] 05-29-2021 10:07-0400 Diastolic blood pressure 79 mm[Hg] Caty Bowens MD Work Phone: [facility] 05-29-2021 10:07-0400 Heart rate 51 /min Caty Bowens MD Work Phone: [facility] 05-29-2021 10:07-0400 Respiratory rate 16 /min Caty Bowens MD Work Phone: [facility] 05-29-2021 10:07-0400 SaO2% (BldA) [Mass fraction] 98 % Caty Bowens MD Work Phone: [facility] 05-29-2021 10:07-0400 Systolic blood pressure 135 mm[Hg] Caty Bowens MD Work Phone: [facility] 02-10-2021 14:16-0500 Body height 66.04 cm No PCP None [facility] Work Phone: 02-10-2021 14:16-0500 Body mass index (BMI) [Ratio] 211.46 kg/m2 [facility] Work Phone: 02-10-2021 14:16-0500 Body surface area Derived from formula 1.03 m2 No PCP None [facility] Work Phone: 02-10-2021 14:16-0500 Body temperature 97.1 [degF] No PCP None -Otolaryngolo [facility] 4[address] Work Phone: 02-10-2021 14:16-0500 Body weight 92.22 kg No PCP None -Otolaryngolog 4100 Work Phone: 08-12-2020 11:33-0400 Body height 165.1 cm No PCP None [facility] Work Phone: 08-12-2020 11:33-0400 Body mass index (BMI) [Ratio] 32.79 kg/m2 No PCP None [facility] Work Phone: 08-12-2020 11:33-0400 Body surface area Derived from formula 1.97 m2 No PCP None [facility] Work Phone: 08-12-2020 11:33-0400 Body weight 89.39 kg No PCP None -Otolaryngolog y- [facility] 4[address] Work Phone: Encounters Encounter Date Encounter Type Care Provider Facility Start: 01-03-2025 Encounter for other preprocedural examination [facility] Start: 01-02-2025 End: 01-03-2025 ambulatory [facility] Facility:[facility] Start: 01-02-2025 ambulatory [facility] Facility:[facility] Start: 12-26-2024 End: 12-26-2024 ambulatory KATY FAUST Facility:[facility] Start: 12-26-2024 Encounter for other preprocedural examination SRINIVASAN DA SILVA [facility] Start: 12-22-2024 End: 12-22-2024 ambulatory [facility] Facility:[facility] Start: 11-29-2024 End: 11-29-2024 Patient encounter procedure Carlos Trujillo [employer] -[facility] Work Phone: Start: 11-29-2024 End: 11-29-2024 Patient encounter status Carlos Trujillo [employer]-[facility] Start: 11-29-2024 End: 11-29-[address] Katy Faust MD Work Phone: -[facility] Start: 11-15-2024 ambulatory Carlos Trujillo BOX [employer] HAND Facility :[facility] Start: 10-26-2024 End: 10-27-2024 Admission to same day surgery center Katy Faust MD Work Phone: [facility] Comment on above: Spinal surgery for s tenosis Start: 10-26-2024 End: 10-27-2024 ambulatory Katy Faust MD Work Phone: [facility] Start: 10-13-2024 End: 10-13-[address] Howard Siddiqui MD -[facility] Work Phone: Start: 10-13-2024 End: 10-13-[address] Katy Faust MD Work Phone: -[facility] Start: 10-10-2024 Non-patient / Non-visit Dr. Raghu boothe MD -[facility] Start: 10-10-2024 End: 10-10-[address] Katy Faust MD Work Phone: -Cardiovascular Services Start: 10-10-2024 End: 10-10-2024 Patient encounter procedure Naty CAMACHO -Cardiovascular Services Work Phone: Start: 10-10-2024 End: 10-10-2024 ambulatory Katy Faust Facility:[facility] Start: 09-22-2024 End: 09-22-2024 ambulatory Howard Siddiqui Facility:[facility] Start: 09-22-2024 End: 09-22-[address] Howard Siddiqui MD -Physical Therapy Work Phone: Start: 09-20-2024 End: 09-20-[address] Howard Siddiqui MD -[facility] Work Phone: Start: 09-20-2024 End: 09-20-2024 ambulatory Howard Siddiqui Facility:[facility] Start: 09-13-2024 End: 09-13-[address] Howard Siddiqui MD -[facility] Work Phone: Start: 09-13-2024 End: 09-13-2024 ambulatory Howard Siddiqui Facility:[facility] Start: 08-23-2024 End: 08-23-2024 Patient encounter procedure Naty CAMACHO -[facility] Work Phone: Start: 08-23-2024 End: 08-23-[address] Katy Faust MD Work Phone: [facility] Work Phone: Start: 08-15-2024 End: 08-15-2024 Patient encounter procedure Norm Parker APRN.CUP MACHINE OPERATOR Work Phone: [facility] Comment on above: Tendonitis (Primary Dx); Muscle tightness; Spinal stenosis of lumbar region without neurogenic claudication; History of malignant neoplasm of rectum; Presence of ileostomy (HCC) Start: 08-15-2024 End: 08-15-2024 ambulatory NORM ELENA Facility:[facility] Start: 08-13-2024 End: 10-31-2024 E-mail encounter from caregiver Katy Faust MD Work Phone: [facility] Start: 08-13-2024 End: 10-31-2024 Patient encounter procedure Katy Faust MD Work Phone: [facility] Comment on above: Appointment Request Start: 08-03-2024 End: 08-08-2024 ambulatory [facility] Provider [facility] Comment on above: [facility]omy pouches from [facility] Start: 08-01-2024 Non-patient / Non-visit Dr. Raghu boothe MD -[facility] Start: 08-01-2024 End: 08-01-[address] Katy Faust MD Work Phone: [facility] Work Phone: Start: 08-01-2024 End: 08-01-2024 Patient encounter procedure Naty CAMACHO -Cardiovascular Services Work Phone: Start: 07-31-2024 End: 07-31-2024 Nursing evaluation of patient and report [facility] Work Phone: Colorectal Surgery Comment on above: Attention to ileosto my (HCC) (Primary Dx) Start: 07-31-2024 End: 08-01-2024 ambulatory KATY FAUST Facility:[facility] Start: 07-17-2024 End: 07-17-2024 Nursing evaluation of patient and report [facility] Work Phone: Colorectal Surgery Comment on above: Attention to ileosto my (HCC) (Primary Dx) Start: 07-17-2024 End: 07-17-2024 ambulatory KATY FAUST Facility:[facility] Start: 07-06-2024 End: 07-06-[address] Howard Siddiqui MD -[facility] Work Phone: Start: 07-06-2024 End: 07-06-2024 ambulatory Howard Siddiqui Facility:[facility] Start: 07-05-2024 End: 07-05-2024 Telephone encounter Katy Faust MD Work Phone: [facility] Comment on above: Patient Update Start: 07-05-2024 End: 07-05-2024 Patient encounter procedure Norm Singletaryr ANALYTICS INTERN.CUP MACHINE OPERATOR Work Phone: [facility] Comment on above: Skin ulcer of abdome n, with fat layer exposed (HCC) (Primary Dx); Presence of ileostomy (HCC); Anal squamous cell carcinoma (HCC) Start: 07-05-2024 End: 07-05-2024 ambulatory NORM PARKER Facility:[facility] Start: 07-03-2024 End: 07-03-2024 ambulatory Katy Faust MD Work Phone: [facility] [place] Comment on above: Ulcer Start: 05-31-2024 End: 05-31-2024 ambulatory KATY FAUST Facility:[facility] Start: 05-31-2024 End: 05-31-2024 Office outpatient visit 25 minutes Katy Faust MD Work Phone: [facility] [place] Comment on above: Spinal stenosis of l umbar region with neurogenic claudication (Primary Dx); Lumbar radiculopathy; Pain in both lower extremities; Bilateral lower extremity edema; Presence of ileostomy (HCC) Start: 05-25-2024 End: 05-26-2024 ambulatory Katy Faust MD Work Phone: [facility] [place] Comment on above: Edema and the limite d use of my legs. Start: 04-25-2024 End: 04-25-2024 Emergency department patient visit Dr. Donovan Mccabe DO -Emergency Department Work Phone: Start: 04-21-2024 End: 04-21-[address] Howard Siddiqui MD -[facility] Work Phone: Start: 04-21-2024 End: 04-21-2024 ambulatory Howard Siddiqui Facility:[facility] Start: 03-27-2024 End: 03-27-2024 Subsequent hospital visit by physician [facility] Comment on above: Acoustic neuroma (Mu lti) Start: 03-27-2024 End: 03-27-2024 ambulatory GISELA HAYES [facility] Start: 03-02-2024 End: 03-02-2024 ambulatory Zaira De Jesus Facility:[facility] Start: 02-25-2024 ambulatory Raghu Reynolds Facility:[facility] Start: 02-25-2024 End: 02-25-2024 ambulatory Naty Amato Facility:[facility] Start: 02-18-2024 End: 02-18-2024 ambulatory Robbie Dorina LAUREANO [facility] Start: 02-18-2024 End: 02-18-2024 [facility] Comment on above: Population Health Na vigation Outreach (ACO WORKBENC LEA/) Start: 02-14-2024 End: 02-28-2024 ambulatory Katy Faust MD Work Phone: [facility] [place] Comment on above: Flank pain. Start: 02-14-2024 End: 02-14-2024 Telephone encounter Katy Faust MD Work Phone: [facility] [place] Comment on above: Patient Update Start: 02-03-2024 End: 02-03-2024 ambulatory Howard Siddiqui Facility:[facility] Start: 01-18-2024 End: 01-19-2024 ambulatory Howardalicia Siddiqui Facility:[facility] Start: 01-18-2024 ambulatory Howard Siddiqui [facility] Start: 01-11-2024 End: 01-11-2024 ambulatory Howard Siddiqui Facility:[facility] Start: 01-05-2024 End: 01-05-2024 ambulatory Howard Siddiqui Facility:[facility] Start: 01-04-2024 End: 01-04-2024 Patient encounter procedure Norm Parker APRN.CNP Work Phone: [facility] [place] Comment on above: Cervical radiculopat hy (Primary Dx); Spinal stenosis in cervical region; Protrusion of cervical intervertebral disc; Pre-op evaluation; Status post coronary artery bypass graft; PVD (peripheral vascular disease) (HCC); History of DVT (deep vein thrombosis) Start: 01-04-2024 End: 01-04-2024 Preprocedural examination done Norm Parker APRN.CUP MACHINE OPERATOR Work Phone: [facility] Start: 01-04-2024 End: 01-04-2024 ambulatory KATY FAUST Facility:[facility] Start: 01-04-2024 Encounter for other preprocedural examination NORM PARKER [facility] Start: 12-22-2023 End: 12-22-2023 Telephone encounter Katy Faust MD Work Phone: [facility] [place] Start: 11-30-2023 End: 11-30-2023 Patient encounter procedure Norm Parker APRN.CUP MACHINE OPERATOR Work Phone: [facility] [place] Comment on [...] Katy Faust MD Work Phone: [facility] [place] Comment on above: Refill Request Start: 10-18-2023 End: 11-09-2023 ambulatory Katy Faust MD Work Phone: [facility] [place] Comment on above: ostomy bags Start: 09-24-2023 Telephone encounter Linda iqbal APRN.CUP MACHINE OPERATOR Work Phone: Pre Anesthesia Start: 09-22-2023 End: [...] bypass graft with angina pectoris, unspecified whether platinum or transplanted heart (HCC); History of pulmonary embolism; Bilateral carotid artery stenosis; PVD (peripheral vascular disease) (HCC); History of DVT (deep vein thrombosis); Rectal cancer (HCC) Start: 09-22-2023 End: 09-22-2023 Preprocedural examination done Pacc Main 1 Work Phone: [facility] Work Phone: Start: 09-22-2023 End: 09-22-2023 Patient encounter procedure I Dutch Cheung MD Work Phone: Colorectal Surgery Comment on above: History of rectal ca ncer (Primary Dx) Start: 08-16-2023 Admission to [facility] surgery [place] I Dutch Cheung MD Work Phone: Colorectal Surgery Comment on above: MRI of lower spine. Start: 08-16-2023 ambulatory I Dutch Cheung MD Work Phone: Colorectal Surgery Start: 08-03-2023 Admission to [facility] surgery center I Dutch Cheung MD Work Phone: Colorectal Surgery Start: 08-03-2023 ambulatory I Dutch Cheung MD Work Phone: Colorectal Surgery Start: 08-02-2023 ambulatory Katy beard MD Work Phone: [facility] [place] Comment on above: Ostomy pouches from [facility] [...] Start: 07-14-2023 End: 07-14-2023 ambulatory SABRINA MUÑIZ [facility] Start: 07-14-2023 End: 07-14-2023 Office outpatient new 60 minutes Sabrina Muñiz MD Work Phone: [facility] Comment on above: Rectal bleeding (Nalini la Dx); History of rectal cancer; Colorectal anastomotic stricture Start: 07-08-2023 End: 07-08-2023 Admission to same day surgery center Dr. Katy Faust Work Phone: [facility]-Cartographic Aide/Special Procedures Work Phone: Start: 07-08-2023 End: 07-08-[address] 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 Katy Faust Work Phone: [facility]-Emergency Department Work Phone: Start: 06-11-2023 Orders Only Michael Christian MD Work Phone: Orthopaedics Comment on above: Pain in left arm (Pr imary Dx) Start: 06-04-2023 Non-patient / Non-visit Dr. Carey Faust Work Phone: [facility] Start: 06-04-2023 End: 06-04-[address] Katy Faust Work Phone: [facility] Work Phone: Start: 06-04-2023 End: 06-04-[address] Katy Faust Work Phone: [facility]-Cardiovascula r Services Work Phone: Start: 05-31-2023 End: 05-31-2023 Patient encounter procedure Mary Anne Alejandro ANALYTICS INTERN.CUP MACHINE OPERATOR Work Phone: [facility] Comment on above: Ingrown nail of grea t toe (Primary Dx) Start: 05-20-2023 End: 05-20-[address] Katy Faust Work Phone: [facility] Vascular Surgery Work Phone: Start: 05-05-2023 End: 05-05-[address] Katy Faust Work Phone: [facility] Work Phone: Start: 04-27-2023 End: 04-27-2023 [facility] Comment on above: Acute deep vein thro mbosis (DVT) of proximal vein of left lower extremity (HCC) (Primary Dx) Start: 04-21-2023 ambulatory Katy beard MD Work Phone: [facility] Start: 04-21-2023 Patient encounter procedure Katy Faust MD Work Phone: [facility] [place] Comment on above: Referral Start: 04-13-2023 End: 04-13-2023 Anticoagulant drug monitoring [facility] Work Phone: [facility] Comment on above: Acute deep vein thro mbosis (DVT) of proximal vein of left lower extremity (HCC) (Primary Dx) Start: 03-24-2023 End: 03-24-2023 Subsequent hospital visit by physician Luis [facility] Comment on above: Acoustic neuroma (CM S/HCC) Start: 03-24-2023 End: 03-24-2023 ambulatory GISELAPILI HAYES [facility] Start: 12-30-2022 Refill Norm Parker APRN.CNP Work Phone: [facility] [place] Comment on above: Refill Request Start: 12-29-2022 End: 12-29-2022 Anticoagulant drug monitoring [facility] Work Phone: [facility] Comment on above: Acute deep vein thro mbosis (DVT) of proximal vein of left lower extremity (HCC) (Primary Dx) Start: 12-15-2022 End: 12-15-2022 Anticoagulant drug monitoring [facility] Work Phone: [facility] Comment on above: Acute deep vein thro mbosis (DVT) of proximal vein of left lower extremity (HCC) (Primary Dx) Start: 12-03-2022 ambulatory JUSTIN WILLIAM Facility: [facility] Start: 12-03-2022 End: 12-03-2022 Subsequent hospital visit by physician Justin William MD Work Phone: [facility] Radiology Comment on above: S/P IVC filter [Z95. 828] Start: 11-27-2022 Telephone encounter Rebecca [facility] Radiology Comment on above: Radiology Pre Proced ure Instructions Start: 11-17-2022 End: 11-17-2022 Anticoagulant drug monitoring [facility] Work Phone: [facility] Comment on above: Acute deep vein thro [...] Start: 11-03-2022 End: 11-03-2022 Anticoagulant drug monitoring [facility] Work Phone: [facility] Comment on above: Acute deep vein thro mbosis (DVT) of proximal vein of left lower extremity (HCC) (Primary Dx) Start: 11-03-2022 End: 11-03-2022 Patient encounter procedure Terry Balderrama MD Work Phone: Vascular Medicine Comment on above: 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) (Primary Dx); S/P IVC filter; Current use of usp anticoagulation; Bruit of right carotid artery; Atherosclerosis of aorta (HCC) Start: 10-22-2022 Telephone encounter Robert nunez MD Work Phone: [facility] Comment on above: Appointment Start: 10-01-2022 Telephone encounter Yessica wilson APRN.CUP MACHINE OPERATOR Work Phone: [facility] Comment on above: Patient Question Start: 09-30-2022 Telephone encounter Yessica wilson APRN.CUP MACHINE OPERATOR Work Phone: [facility] Comment on above: Appointment Deep vein thrombosis (DVT) of both lower extremities, unspecified chronicity, unspecified vein (HCC) (Primary Dx); 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) Start: 09-23-2022 ambulatory Katy beard MD Work Phone: [facility] [place] Comment on above: colon tissue in stoo l Start: 09-07-2022 End: 09-07-2022 Anticoagulant drug monitoring [facility] Work Phone: [facility] Comment on above: Acute deep vein thro mbosis (DVT) of proximal vein of left lower extremity (HCC) (Primary Dx) Start: 08-25-2022 End: 08-25-2022 Anticoagulant drug monitoring [facility] Work Phone: [facility] Comment on above: Acute deep vein thro mbosis (DVT) of proximal vein of left lower extremity (HCC) (Primary Dx) Start: 08-17-2022 ambulatory Ramiro Cheung MD Work Phone: Colorectal Surgery Comment on above: Bleeding Start: 08-16-2022 ambulatory Ramiro Cheung MD Work Phone: Colorectal Surgery Comment on above: Bleeding Start: 08-11-2022 End: 08-11-2022 [facility] Work [facility]: [facility] [place] Comment on above: Acute deep vein thro mbosis (DVT) of proximal vein of left lower extremity (HCC) (Primary Dx) Start: 08-03-2022 Telephone encounter Katy dasilva MD Work Phone: [facility] Comment on above: Orders (protime) Start: 08-03-2022 End: 08-03-2022 [facility] Work Phone: [facility] [place] Comment on above: Acute deep vein thro mbosis (DVT) of proximal vein of left lower extremity (HCC) (Primary Dx) Start: 07-25-2022 Telephone encounter Katy dasilva MD Work Phone: [facility] [place] Comment on above: Anticoagulation Start: 07-08-2022 Telephone encounter Norm horan APRN.CUP MACHINE OPERATOR Work Phone: [facility] [place] Comment on above: need office notes ch anged Start: 06-16-2022 ambulatory Katy beard MD Work Phone: [facility] [place] Comment on above: [facility] Start: 06-04-2022 Anticoagulant drug monitoring Terry Balderrama MD Work Phone: Vascular Medicine Comment on above: anticoagulation Start: 06-04-2022 E-mail encounter fro m caregiver Terry Balderrama MD Work Phone: [facility] Start: 05-25-2022 Telephone encounter Katy dasilva [...] Start: 05-20-2022 End: 05-20-2022 Admission to establishment [facility] Main 5 Work Phone: [facility] Start: 05-20-2022 End: 05-20-2022 ambulatory [facility] 5 Work Phone: Pre Anesthesia Comment on above: Pre-op evaluation (P rimary Dx); Acoustic neuroma (HCC); 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, unspecified whether platinum or transplanted heart (HCC); Pulmonary embolism and infarction (HCC); Bilateral carotid artery stenosis Start: 05-20-2022 End: 05-20-2022 Preprocedural examination done [place] [id number] Work Phone: Pre Anesthesia Start: 05-20-2022 End: 05-20-2022 Subsequent hospital visit by physician [facility] (I-Stat) Radiology Comment on above: Attention to ileosto my (HCC) [Z43.2] Start: 05-18-2022 End: 07-07-2022 Preprocedural examination done [facility] 5 Work Phone: [facility] Work Phone: Start: 04-29-2022 Telephone encounter Liz wood APRN.CUP MACHINE OPERATOR Work Phone: Radiology Comment on above: Patient Update Appointment Start: 04-24-2022 Telephone encounter Leandro Brown RN Work Phone: [facility] Comment on above: Home Care (Notificat ion of home health agency discharge.) Start: 04-23-2022 End: 04-23-2022 Home visit Doris Rivera RN Work Phone: [facility] Comment on above: SN AGENCY DC W VISIT Start: 04-22-2022 End: 04-22-2022 Office outpatient visit 10 minutes Katy Faust MD Work Phone: [facility] [place] Comment on above: Iron deficiency anem ia, unspecified iron deficiency anemia type (Primary Dx); 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); History of hepatitis B; History of anemia; Status post coronary artery bypass graft; Dyslipidemia Start: 04-22-2022 End: 04-22-2022 Home visit Estefany Stern PT Work Phone: [facility] Comment on above: PT DISC DC W VISIT Start: 04-21-2022 End: 04-21-2022 Home visit Isela Acharya THREAD SEPARATOR Work Phone: [facility] Comment on above: THREAD SEPARATOR ROUTINE Start: 04-17-2022 End: 04-17-2022 Home visit Isela Patrizia THREAD SEPARATOR Work Phone: [facility] Comment on above: THREAD SEPARATOR ROUTINE CARE COORDINATION Start: 04-15-2022 End: 04-15-2022 Home visit Isela Acharya THREAD SEPARATOR Work Phone: [facility] Comment on above: THREAD SEPARATOR ROUTINE Start: 04-13-2022 Telephone encounter Terry Balderrama MD Work Phone: Vascular Medicine Comment on above: Patient Update Start: 04-13-2022 End: 04-13-2022 Home visit Britta Mantilla RN Work Phone: [facility] Comment on above: SN ROUTINE Start: 04-09-2022 End: 04-09-2022 Home visit Britta Mantilla RN Work Phone: [facility] Comment on above: SN ROUTINE Start: 04-08-2022 ambulatory Norm Parker APRN.CUP MACHINE OPERATOR Work Phone: [facility] [place] Comment on above: Results Start: 04-08-2022 E-mail encounter fro m caregiver Norm Parker APRN.CUP MACHINE OPERATOR Work Phone: [facility] Start: 04-07-2022 Telephone encounter Norm Calderon er ANALYTICS INTERN.CUP MACHINE OPERATOR Work Phone: [facility] [place] Comment on above: Critical Results (/) Start: 04-07-2022 End: 04-07-2022 Home visit Isela Acharya THREAD SEPARATOR Work Phone: [facility] Comment on above: THREAD SEPARATOR ROUTINE Start: 04-06-2022 End: 04-06-2022 Patient encounter procedure Norm Parker ANALYTICS INTERN.CUP MACHINE OPERATOR Work Phone: [facility] [place] Comment on above: Rectal malignant gila plasm (HCC) (Primary Dx); Malignant neoplasm of colon, unspecified part of colon (HCC); 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); Bilateral pulmonary embolism (HCC); Blood loss; Anemia, unspecified type; Hyperlipidemia, unspecified hyperlipidemia type; Special screening examination for viral disease; Encounter to establish care; Encounter for therapeutic drug monitoring Start: 04-06-2022 End: 04-06-2022 Home visit Britta Mantilla RN Work Phone: [facility] Comment on above: SN ROUTINE Start: 04-03-2022 End: 04-03-2022 Home visit Isela Acharya THREAD SEPARATOR Work Phone: [facility] Comment on above: THREAD SEPARATOR ROUTINE Start: 04-02-2022 Non-patient / Non-visit No [facility] Physician [facility] Start: 04-02-2022 End: 04-02-2022 Home visit Britta Mantilla RN Work Phone: [facility] Comment on above: SN ROUTINE Start: 04-02-2022 Non-patient / Non-visit No [facility] Physician [facility] Start: 04-02-2022 End: 04-02-2022 ambulatory No Primary Care Physician [facility] Work Phone: Start: 04-02-2022 End: 04-02-2022 Patient encounter procedure No Primary Care Physician [facility]-Cardiovascula r Services Start: 03-31-2022 End: 03-31-2022 Home visit Isela Acharya THREAD SEPARATOR Work Phone: [facility] Comment on above: THREAD SEPARATOR ROUTINE Start: 03-31-2022 Telephone encounter I Dutch rangel MD Work Phone: Colorectal Surgery Comment on above: Deep Submergence Vehicle Operator - O ther Start: 03-30-2022 End: 03-30-2022 Home visit Britta Mantilla RN Work Phone: [facility] Comment on above: SN ROUTINE Start: 03-27-2022 End: 03-27-2022 Home visit Isela Acharya THREAD SEPARATOR Work Phone: [facility] Comment on above: THREAD SEPARATOR ROUTINE Start: 03-26-2022 Telephone encounter Doris Rivera RN Work Phone: [facility] Comment on above: Home Care (Pt [...] Home visit Doris Rivera RN Work Phone: [facility] Comment on above: SN ROUTINE Start: 03-25-2022 End: 03-25-2022 Home visit Isela Acharya THREAD SEPARATOR Work Phone: [facility] Comment on above: THREAD SEPARATOR ROUTINE Start: 03-24-2022 End: 03-24-2022 Home visit Britta Mantilla RN Work Phone: [facility] Comment on above: SN ROUTINE Start: [...] 03-19-2022 End: 03-19-2022 Home visit Isela Acharya THREAD SEPARATOR Work Phone: [facility] Comment on above: THREAD SEPARATOR ROUTINE SN ROUTINE Start: 03-18-2022 End: 03-18-2022 Patient encounter procedure Russ Monteiro MD Work Phone: [facility] [place] Comment on above: Anemia, unspecified type (Primary Dx); Pulmonary embolism and infarction (HCC); Hypokalemia; 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); Generalized weakness Start: 03-15-2022 End: 03-15-2022 Home visit Britta Mantilla RN Work Phone: [facility] Comment on above: SN ROUTINE Start: 03-14-2022 Home visit Savanna Galan RN Work Phone: [facility] Comment on above: CARE COORDINATION Start: 03-12-2022 Telephone encounter Leandro Brown RN Work Phone: [facility] Comment on above: Home Care (Need for home care SN EVAL for ostomy teaching and care. ) Start: 03-12-2022 End: 03-12-2022 Home visit Estefany Stern PT Work Phone: [facility] Comment on above: PT NORRIS Start: 03-05-2022 Telephone encounter Leandro Brown RN Work Phone: [facility] Comment on above: Home Care (Notificat ion of hospitalization.) Start: 03-04-2022 Telephone encounter Tejal bhakta PREFORMING MACHINE OPERATOR Work Phone: [facility] Comment on above: Home Care (Pt confir mation call ) Start: 03-03-2022 Telephone encounter Holly fernandez PREFORMING MACHINE OPERATOR Work Phone: [facility] Comment on above: Home Care ( to pinky spangler) Start: 03-03-2022 End: 03-06-2022 Home visit Leandro Cruz RN Work Phone: [facility] Comment on above: SN TRANSFER Start: 03-01-2022 End: 03-02-2022 Emergency department patient visit No Primary Care Physician [facility]-Emergency Department Start: 03-01-2022 ambulatory Deborah Myerson RN NURSE RETAIL PHARMACY MANAGER Comment on above: Chest Pain Start: 02-27-2022 End: 02-27-2022 Emergency department patient visit No Primary Care Physician [facility]Emergency [facility] Start: 02-26-2022 End: 02-26-2022 Home visit Estefany Stern PT Work Phone: [facility] Comment on above: PT EVAL Start: 02-26-2022 Non-patient / Non-visit No Nalini tovar [facility] Physician [facility] Start: 02-25-2022 End: 02-25-2022 Home visit Jovanna Heaton RN Work Phone: [facility] Comment on above: SN SOC Start: 02-11-2022 Telephone encounter Radha jackson Work Phone: [facility] Comment on above: Home Care (Confirmat ion Call ) Home Care (MD sebastien spangler ) Start: 2022 Telephone encounter Tejal bhakta LPN Work Phone: [facility] Comment on above: Erroneous encounter- disregard Start: 02-03-2022 Orders Only I Dutch Cheung MD Work Phone: Colorectal Surgery Comment on above: Rectal cancer (HCC) (Primary Dx) Start: 02-01-2022 ambulatory Robert Bullock APRN.CUP MACHINE OPERATOR Work Phone: Critical Care Start: 02-01-2022 End: 02-01-2022 Emergency department patient visit No Primary Care Physician [facility]Emergency [facility] Start: 01-30-2022 End: 01-30-2022 Home visit Leandro Cruz RN Work Phone: [facility] Comment on above: CARE COORDINATION SN SOC Start: 01-28-2022 Telephone encounter Radha jackson Work Phone: [facility] Comment on above: Home Care (Confirmat ion Call ) Start: 01-16-2022 Non-patient / Non-visit No Nalini tovar Care Physician [facility] Start: 01-16-2022 End: 01-16-2022 ambulatory No Primary Care Physician [facility] Work Phone: Start: 01-16-2022 End: 01-16-2022 Patient encounter procedure No Primary Care Physician [facility]Cardiov[facility] Start: 01-13-2022 Telephone encounter Kristel Moreira PA-C Work Phone: Pre Anesthesia Comment on above: Pre-Op Update Start: 01-12-2022 Telephone encounter Calista Mixon RN Pre Anesthesia Comment on above: PACC Start: 01-09-2022 End: 01-09-2022 Patient encounter procedure No Primary Care Physician [facility] Start: 01-07-2022 End: 01-07-2022 Orders Only Eric Hernandez MD Work Phone: Cardiology Comment on above: Pre-operative cleara nce (Primary Dx) Pre-op evaluation (P rimary Dx); 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; Bilateral carotid artery [...] patient Marisela Rome MD, MD Work Phone: [facility] Start: 07-22-2021 ambulatory Alexia edgar APRN.CUP MACHINE OPERATOR Work Phone: Hematology/Oncology Comment on above: MRI and visit with Scott Ambrocio Start: 07-21-2021 ambulatory Marisela Rome MD Work Phone: Radiation Oncology Comment on above: Patient Education Start: 07-21-2021 Patient encounter procedure Marisela Rome MD, MD Work Phone: [facility] [facility] Start: 07-21-2021 Radiation Oncology Note Avril Rome MD Work Phone: Radiation Oncology Comment on above: Completion Note Start: 07-18-2021 End: 07-18-2021 ambulatory Alexia Rao APRN.CUP MACHINE OPERATOR Work Phone: Hematology/Oncology Comment on above: Rectal malignant gila plasm (HCC) (Primary Dx); Anal squamous cell carcinoma (HCC) Start: 07-18-2021 End: 07-18-2021 Patient encounter procedure Alexia Rao APRN.CUP MACHINE OPERATOR Work Phone: [facility] Comment on above: Appointment Start: 07-18-2021 Telephone encounter Alexia antonio APRN.CUP MACHINE OPERATOR Work Phone: Hematology/Oncology Comment on above: Future [...] Dx) Start: 07-07-2021 Telephone encounter Alexia antonio APRN.CUP MACHINE OPERATOR Work Phone: Hematology/Oncology Comment on above: Orders Start: 07-07-2021 End: 07-07-2021 ambulatory Lab[facility] [facility] Work Phone: Hematology/Oncology Comment on above: Rectal malignant gila plasm (HCC) (Primary Dx); 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) Start: 07-04-2021 End: 07-04-2021 ambulatory Alexia Rao ANALYTICS INTERN.CUP MACHINE OPERATOR Work Phone: Hematology/Oncology Comment on above: Rectal malignant gila plasm (HCC) (Primary Dx) Start: 07-04-2021 End: 07-04-2021 Patient encounter procedure Alexia Rao ANALYTICS INTERN.CUP MACHINE OPERATOR Work Phone: [facility] Start: 07-01-2021 End: 07-01-2021 Specialty Pharmacy [facility] Comment on above: SPP Oral Oncology/he matology - Medication Refill (Capecitabine x 2) Refill Request Anal squamous cell c arcinoma (HCC) (Primary Dx) Start: 06-30-2021 End: 06-30-2021 ambulatory Lab[facility] [facility] Work Phone: Hematology/Oncology Comment on above: [...] End: 06-23-2021 ambulatory Lab[facility] [facility] Work Phone: Hematology/Oncology Comment on above: Rectal malignant gila plasm (HCC); Anal squamous cell carcinoma (HCC) Start: 06-18-2021 End: 06-18-2021 ambulatory Helen Lakhani DO Work Phone: Hematology/Oncology Comment on above: Rectal malignant gila plasm (HCC) (Primary Dx) Start: 06-18-2021 End: 06-18-2021 Patient encounter procedure Helen Lakhani DO Work Phone: [facility] Start: 06-17-2021 End: 06-17-2021 Patient encounter procedure Marisela Rome MD Work Phone: Radiation Oncology Comment on above: Anal squamous cell c arcinoma (HCC) (Primary Dx) Start: 06-17-2021 Telephone encounter Amelia Souza RN He matology/Oncology Comment on above: Deep Submergence Vehicle Operator - O ther (Follow-up ) Start: 06-16-2021 End: 06-16-2021 ambulatory Lab[facility] [facility] Work Phone: Hematology/Oncology Comment on above: [...] Start: 06-09-2021 End: 06-09-2021 [facility] Start: 06-06-2021 Telephone encounter Helen connelly DO Work Phone: Hematology/Oncology Comment on above: Follow Up Start: 06-06-2021 End: 06-06-2021 ambulatory Helen Lakhani DO Work Phone: Hematology/Oncology Comment on above: Rectal malignant gila plasm (HCC) (Primary Dx) Start: 06-06-2021 End: 06-06-2021 Patient encounter procedure Helen Lakhani DO Work Phone: [facility] Start: 06-04-2021 Orders Only Marisela Rome MD Work Phone: Radiation Oncology Comment on above: Prostate cancer (HCC ) (Primary Dx) Erroneous encounter- disregard Start: 06-03-2021 Refill Caty Bowens MD Work Phone: Hematology/Oncology Comment on above: Refill Request Start: 06-02-2021 ambulatory Milly George [facility] Start: 06-02-2021 End: 06-02-2021 Patient encounter procedure Milly George [facility] Comment on above: SPP Oral Oncology/he matology - Treatment Referral (Capecitabine 500mg) Rectal malignant gila plasm (HCC) (Primary Dx) Start: 06-02-2021 Radiation Oncology Note Avril Rome MD Work Phone: Radiation Oncology Comment on above: Simulation Note Treatment Planning Start: 05-30-2021 ambulatory Milly George [facility] Start: 05-30-2021 Patient encounter procedure Milly [...] procedure Caty Bowens MD Work Phone: [facility] Comment on above: Rectal malignant gila plasm (HCC) (Primary Dx); Anal squamous cell carcinoma (HCC) Start: 02-10-2021 Office outpatient vi sit 15 minutes No PCP None [id number] Work Phone: Start: 08-12-2020 Office outpatient ne w 45 minutes No PCP None [id number] Work Phone: Evaluation finding No PCP None [facility] Work Phone: Procedures Date Procedure [...] pelvis w/o & w/contrast material Alexia Rao APRN.CUP MACHINE OPERATOR Work Phone: Start: 09-17-2021 Sigmoidoscopy flx dx [...] Status post coronary artery bypass graft Norm Pakrer ANALYTICS INTERN.CUP MACHINE OPERATOR Work Phone: SARS-CoV-2 & FLU Ant igen (Rapid) No Primary Care Physician SARS-CoV-2 & FLU Ant igen (Rapid) No Primary Care Physician Tonsillectomy No PCP None Viral antigen assay No Prima ry Care Physician Viral antigen assay No Prima ry Care Physician Plan of Treatment Date Care Activity Detail Author Start: 06-04-2032 Colonoscopy COLONOSCOPY [facility] Start: 06-04-2032 COLORECTAL CANCER SCREENING COLORECTAL CANCER SCREENING [facility] Start: 06-04-2032 Screening for malign ant neoplasm of colon [facility] Start: 03-20-2031 Colonoscopy COLONOSCOPY [facility] Start: 03-20-2031 COLORECTAL CANCER SCREENING COLORECTAL CANCER SCREENING [facility] Start: 04-06-2027 Lipid 1996 panel - S chad or Plasma Lipid Screening [facility] Start: 04-06-2027 Lipid panel Lipid Screening [facility] Start: 04-06-2027 LIPID SCREEN LIPID SCREEN [facility] Start: 12-17-2026 DTaP/Tdap/Td Vaccine s (2 - Td or Tdap) DTaP/Tdap/Td Vaccines (2 - Td or Tdap) [facility] Start: 12-17-2026 Urine microalbumin profile [facility] Start: 12-10-2026 Screening for malign ant neoplasm of colon Sigmoidoscopy [facility] Start: 12-10-2026 SIGMOIDOSCOPY SIGMOIDOSCOPY [facility] Start: 09-21-2026 Diabetes Screening Diabetes Screenin g [facility] Start: 09-17-2026 SIGMOIDOSCOPY SIGMOIDOSCOPY [facility] Start: 11-11-2025 Diabetes Screening Diabetes Screenin g [facility] Start: 08-15-2025 Annual PCP Team Substance Abuse Prevention Coordinator isidra Disease Visit Annual PCP Team Chronic Disease Visit [facility] Start: 07-07-2025 DIABETES SCREEN DIABETES SCREEN [facility] Start: 07-05-2025 Annual PCP Team Substance Abuse Prevention Coordinator isidra Disease Visit Annual PCP Team Chronic Disease Visit [facility] Start: 05-31-2025 Annual PCP Team Substance Abuse Prevention Coordinator isidra Disease Visit Annual PCP Team Chronic Disease Visit [facility] Start: 05-20-2025 DIABETES SCREEN DIABETES SCREEN [facility] Start: 04-22-2025 DIABETES SCREEN DIABETES SCREEN [facility] Start: 04-06-2025 DIABETES SCREEN DIABETES SCREEN [facility] Start: 03-18-2025 DIABETES SCREEN DIABETES SCREEN [facility] Start: 03-10-2025 DIABETES SCREEN DIABETES SCREEN [facility] Start: 03-06-2025 DIABETES SCREEN DIABETES SCREEN [facility] Start: 03-04-2025 DIABETES SCREEN DIABETES SCREEN [facility] Start: 03-03-2025 DIABETES SCREEN DIABETES SCREEN [facility] Start: 02-11-2025 DIABETES SCREEN DIABETES SCREEN [facility] Start: 2025 DIABETES SCREEN DIABETES SCREEN [facility] Start: 2025 RSV Vaccine (1 - 1-d ose 75+ series) RSV Vaccine (1 - 1-dose 75+ series) [facility] Start: 02-04-2025 DIABETES SCREEN DIABETES SCREEN [facility] Start: 02-03-2025 DIABETES SCREEN DIABETES SCREEN [facility] Start: 01-27-2025 DIABETES SCREEN DIABETES SCREEN [facility] Start: 01-07-2025 DIABETES SCREEN DIABETES SCREEN [facility] Start: 01-03-2025 Annual PCP Team Substance Abuse Prevention Coordinator isidra Disease Visit Annual PCP Team Chronic Disease Visit [facility] Start: 01-03-2025 Covid-19 Vaccine ( season) Covid-19 Vaccine ( season) [facility] Comment on above: Postponed from 10/30 (Declined at this time) Start: 01-03-2025 RSV Vaccine (1 - Ris k 60-74 years 1-dose series) RSV Vaccine (1 - Risk 60-74 years 1-dose series) [facility] Comment on above: Postponed from 02/09 (Declined at this time) Start: 12-25-2024 End: 12-25-2024 Patient encounter procedure 12/25/2024 1:00 PM EDT Office Visit [facility] [address] [place] [address] Srinivasan Da Silva APRN.ENGINEERING RESEARCH MANAGER [address] [place], [place] [phone] pre op clearance appt per Dr. Siddiqui. surgery is 01/02/25. [facility] Comment on above: pre op clearance daisha t per Dr. Siddiqui. surgery is 01/02/25. Start: 11-29-2024 Annual PCP Team Substance Abuse Prevention Coordinator isidra Disease Visit Annual PCP Team Chronic Disease Visit [facility] Start: 11-29-2024 End: 11-29-2024 Evaluation of diagnostic study results [facility] Start: 10-30-2024 Influenza vaccination [facility] Start: 08-28-2024 Influenza vaccination Influenza Vacc ine (#1) [facility] Comment on above: Postponed from 10/30 (Declined at this time) Start: 07-31-2024 End: 07-31-2024 Nursing evaluation of patient and report 07/31/2024 8:15 AM EDT Nurse Visit Colorectal Surgery [address] [id number] Therapy, Stoma [address] [id number] stoma nurse, has an ulcer next to stoma Colorectal Surgery Comment on above: stoma nurse, has an ulcer next to stoma Start: 07-17-2024 End: 07-17-2024 Nursing evaluation of patient and report 07/17/2024 8:15 AM EDT Nurse Visit Colorectal Surgery [address] [phone] Therapy, Stoma [address] [place] [address] stoma nurse, has an ulcer next to stoma Colorectal [facility] Comment on above: stoma nurse, has an ulcer next to stoma Start: 07-14-2024 DIABETES SCREEN DIABETES SCREEN [facility] Start: 07-07-2024 DIABETES SCREEN DIABETES SCREEN [facility] Start: 07-06-2024 Patient referral [facility] Work Phone: Start: 07-05-2024 End: 07-05-2024 Patient encounter procedure 07/05/2024 8:00 AM EDT Office Visit [facility] [address] [place], [place] [address] Norm Parker APRN.CUP MACHINE OPERATOR [address] [place] [address] ulcer near stoma [facility] Comment on above: ulcer near stoma Start: 06-30-2024 DIABETES SCREEN [facility]EN [facility] Start: 06-23-2024 DIABETES SCREEN [facility] Start: 06-16-2024 DIABET[facility]CRE[facility] Start: 06-09-2024 DIABETES SCREEN [facility] Start: 05-31-2024 End: 05-31-2024 Patient encounter procedure 05/31/2024 3:40 PM EDT Office Visit [facility] [address] [place], [place] [phone] Katy Faust MD [address] [place] [address] Hospital follow up with patient update [facility] Comment on above: Hospital follow up w ith patient update Start: 04-30-2024 DIABETES SCREEN [facility] Start: 04-25-2024 [place] Start: 04-21-2024 Patient referral [facility] Work Phone: Start: 04-12-2024 End: 04-12-2024 Clinical Support [facility] Start: 03-01-2024 Advance Directive Discussion Advance Directive Discussion [facility] Start: 01-04-2024 End: 01-04-2024 Patient encounter procedure 01/04/2024 2:40 PM EST Office Visit [facility] [address] [place], [place] [phone] Norm Parker APRN.CUP MACHINE OPERATOR [address] [place], [place] [phone] Pre op clearance [facility] Comment on above: Pre op clearance Start: 11-30-2023 End: 11-30-2023 Patient encounter procedure 11/30/2023 10:00 AM EDT Office Visit [facility] [address] [place] [address] Norm Parker APRN.CUP MACHINE OPERATOR [address] [place] [address] left shoulder pain [facility] Comment on above: left shoulder pain Start: 10-31-2023 Covid-19 Vaccine ( season) Covid-19 Vaccine ( season) [facility] Start: 10-31-2023 Covid-19 Vaccine () Covid-19 Vaccine () [facility] Start: 10-31-2023 Influenza vaccination [facility] Start: 09-30-2023 End: 09-30-2023 Admission to same [...] 5:50 PM EDT Appointment MRI Q [address] [address] History of rectal cancer [Z85.048] MRI Q Comment on above: History of rectal ca ncer [Z85.048] Start: 09-22-2023 Subsequent hospital visit by physician 09/22/2023 5:19 PM EDT Hospital Encounter MRI [facility] [address] [address] History of rectal cancer [Z85.048] MRI Q Comment on above: History of rectal ca ncer [Z85.048] Start: 09-22-2023 End: 09-22-2023 Anesthesia consultation 09/22/2023 2:50 PM EDT PAT Pre Anesthesia [address] [place] [phone] [address], [address] [place] [phone] pre op Pre Anesthesia Comment on above: pre op Start: 08-03-2023 End: 11-02-2023 CBC panel - Blood by Automated count COMPLETE BLOOD COUNT Lab Routine History of rectal cancer Expected: 08/03/2023 (Approximate), Expires: 11/02/2023 [facility] Work Phone: Comment on above: Expected: 08/03/2023 (Approximate), Expires: 11/02/2023 Start: 08-03-2023 End: 11-02-2023 Comprehensive metabolic 2000 panel - Serum or Plasma COMPREHENSIVE METABOLIC PANEL Lab Routine History of rectal cancer Expected: 08/03/2023 (Approximate), Expires: 11/02/2023 [facility] Comment on above: Expected: 08/03/2023 (Approximate), Expires: 11/02/2023 Start: 08-03-2023 End: 11-02-2023 CONFIRM BLOOD TYPE CONFIRM BLOOD TYPE Blood Bank Routine History of rectal cancer Expected: 08/03/2023 (Approximate), Expires: 11/02/2023 [facility] Comment on above: Expected: 08/03/2023 (Approximate), Expires: 11/02/2023 Start: 08-03-2023 End: 11-02-2023 TYPE AND SCREEN,30 DAY TYPE AND SCREEN,30 DAY Blood Bank Routine History of rectal cancer Expected: 08/03/2023 (Approximate), Expires: 11/02/2023 [facility] Comment on above: Expected: 08/03/2023 (Approximate), Expires: 11/02/2023 Start: 07-28-2023 End: 07-28-2023 Follow-up encounter 07/28/2023 4:[address] [facility] Colorectal Surgery [address] [address] Ramiro Cheung MD [address] [place] [address] FOLLOW UP Colorectal Surgery Comment on above: FOLLOW UP Start: 07-22-2023 End: 07-22-2023 Patient encounter procedure 07/22/2023 3:00 PM EDT Office Visit Podiatry [address] [place], [place] [phone] Jerodmartha Kee [address] [place], [place] [phone] Ingrown nail of great toe [L60.0] Podiatry Comment on above: Ingrown nail of grea t toe [L60.0] Start: 07-18-2023 ANNUAL PCP TEAM GASOLINE TRUCK CRANE OPERATOR ISIDRA DISEASE VISIT ANNUAL PCP TEAM CHRONIC DISEASE VISIT [facility] Start: 07-08-2023 ANNUAL PCP TEAM GASOLINE TRUCK CRANE OPERATOR ISIDRA DISEASE VISIT ANNUAL PCP TEAM CHRONIC DISEASE VISIT [facility] Start: 07-08-[facility]23 [facility] Start: 06-11-2023 [place] Start: 06-11-2023 CT of head without contrast Brain/Head without Contrast [facility] Start: 06-11-2023 CT Unspecified body region WO contrast [facility] Start: 05-05-2023 Patient referral [facility] Work Phone: Start: 04-22-2023 ANNUAL PCP TEAM GASOLINE TRUCK CRANE OPERATOR ISIDRA DISEASE VISIT ANNUAL PCP TEAM CHRONIC DISEASE VISIT [facility] Start: 04-22-2023 COVID-19 VACCINE (#1) COVID-19 VACCI NE (#1) [facility] Comment on above: Postponed from 08/10 (Declined at this time) Start: 04-22-2023 Pneumococcal Vaccine : 65+ (1 - PCV) Pneumococcal Vaccine: 65+ (1 - PCV) [facility] Comment on above: Postponed from 02/09 (Declined at this time) Start: 04-22-2023 Pneumococcal Vaccine : 65+ (1 of 1 - PCV) Pneumococcal Vaccine: 65+ (1 of 1 - PCV) [facility] Comment on above: Postponed from 02/09 (Declined at this time) Start: 04-22-2023 PNEUMOCOCCAL: 65+ (1 - PCV) PNEUMOCOCCAL: 65+ (1 - PCV) [facility] Comment on above: Postponed from 02/09 (Declined at this time) Postponed from 02/09 (Declined at this time) Start: 04-22-2023 SHINGRIX VACCINE (1 of 2) OLIVA GRIX VACCINE (1 of 2) [facility] Comment on above: Postponed from 02/09 (Declined at this time) Postponed from 02/09 (Declined at this time) Start: 04-07-2023 Influenza vaccination [facility] Comment on above: Postponed from 10/30 (Declined at this time) Start: 04-06-2023 ANNUAL PCP TEAM GASOLINE TRUCK CRANE OPERATOR ISIDRA DISEASE VISIT ANNUAL PCP TEAM CHRONIC DISEASE VISIT [facility] Start: 04-06-2023 Hepatitis B surface antibody level LDL CHOLESTEROL [facility] Start: 04-03-2023 BP CONTROLLED (<130/80) BP CONTROLLE D (<130/80) [facility] Start: 04-02-2023 BP CONTROLLED (<130/80) BP CONTROLLE D (<130/80) [facility] Start: 03-31-2023 BP CONTROLLED (<130/80) BP CONTROLLE D (<130/80) [facility] Start: 03-31-2023 End: 03-31-2023 Clinical Support [facility] Start: 03-27-2023 BP CONTROLLED (<130/80) BP CONTROLLE D (<130/80) [facility] Start: 03-25-2023 BP CONTROLLED (<130/80) BP CONTROLLE D (<130/80) [facility] Start: 03-23-2023 BP CONTROLLED (<130/80) BP CONTROLLE D (<130/80) [facility] Start: 03-19-2023 BP CONTROLLED (<130/80) BP CONTROLLE D (<130/80) [facility] Start: 03-18-2023 ANNUAL PCP TEAM GASOLINE TRUCK CRANE OPERATOR ISIDRA DISEASE VISIT ANNUAL PCP TEAM CHRONIC DISEASE VISIT [facility] Start: 03-18-2023 BP CONTROLLED (<130/80) BP CONTROLLE D (<130/80) [facility] Start: 03-12-2023 BP CONTROLLED (<130/80) BP CONTROLLE D (<130/80) [facility] Start: 03-01-2023 Advance Directive Discussion Advance Directive Discussion [facility] Start: 03-01-2023 Behavioral Health Screening Behavioral Health Screening [facility] Start: 03-01-2023 Depression Assessment Depression Ass essment [facility] Start: 01-30-2023 BP CONTROLLED (<130/80) BP CONTROLLE D (<130/80) [facility] Start: 10-30-2022 Covid-19 Vaccine () Covid-19 Vaccine () [facility] Start: 10-30-2022 Influenza vaccination [facility] Start: 10-15-2022 End: 10-02-2023 US LEG VEIN DVT UNL VAS LAB US LEG VEIN DVT UNL VAS LAB Vascular Lab Routine Deep vein thrombosis (DVT) of both lower extremities, unspecified chronicity, unspecified vein (HCC) Localized edema Expected: 10/15/2022 (Approximate), Expires: 10/02/2023 [facility] Work Phone: Comment on above: Expected: 10/15/2022 (Approximate), Expires: 10/02/2023 Start: 10-14-2022 End: 10-30-2023 US DVT LOWER BILATERAL US DVT LOWER BILATERAL Radiology Routine Deep vein thrombosis (DVT) of both lower extremities, unspecified chronicity, unspecified vein (HCC) 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) Expected: 10/14/2022 (Approximate), Expires: 10/30/2023 [facility] Work Phone: Comment on above: Expected: 10/14/2022 (Approximate), Expires: 10/30/2023 Start: 08-28-2022 Influenza vaccination INFLUENZA (#1) [facility] Comment on above: Postponed from 10/30 (Declined at this time) Start: 07-04-2022 BP CONTROLLED (<130/80) BP CONTROLLE D (<130/80) [facility] Start: 06-16-2022 Adult depression screening assessment DEPRESSION SCREENING [facility] Start: 05-18-2022 End: 07-18-2022 CONFIRM BLOOD TYPE CONFIRM BLOOD TYPE Blood Bank Routine Pre-op evaluation Expected: 05/18/2022, Expires: 07/18/2022 [facility] Work Phone: Comment on above: Expected: 05/18/2022 , Expires: 07/18/2022 Start: 05-18-2022 End: 07-18-2022 TYPE AND SCREEN,30 DAY TYPE AND SCREEN,30 DAY Blood Bank Routine Pre-op evaluation Expected: 05/18/2022, Expires: 07/18/2022 [facility] Work Phone: Comment on above: Expected: 05/18/2022 , Expires: 07/18/2022 Start: 04-22-2022 End: 06-22-2022 Basic metabolic 2000 panel - Serum or Plasma BASIC METABOLIC PNL Lab Routine Encounter for therapeutic drug monitoring Expected: 04/22/2022, Expires: 06/22/2022 [facility] Work Phone: Comment on above: Expected: 04/22/2022 , Expires: 06/22/2022 Start: 04-06-2022 End: 06-06-2022 Comprehensive metabolic 2000 panel - Serum or Plasma [facility] Work Phone: Comment on above: Expected: 04/06/2022 , Expires: 06/06/2022 Start: 04-06-2022 End: 06-06-2022 Hepatitis C virus Ab [Presence] in Serum [facility] Work Phone: Comment on above: Expected: 04/06/2022 , Expires: 06/06/2022 Start: 04-06-2022 End: 06-06-2022 Iron and Iron binding capacity panel - Serum or Plasma [facility] Work Phone: Comment on above: Expected: 04/06/2022 , Expires: 06/06/2022 Start: 04-06-2022 End: 06-06-2022 Lipid 1996 panel - Serum or Plasma [facility] Work Phone: Comment on above: Expected: 04/06/2022 , Expires: 06/06/2022 Start: 03-01-2022 [place] Start: 03-01-2022 ADVANCE DIRECTIVE DISCUSSION ADVANCE DIRECTIVE DISCUSSION [facility] Start: 03-01-2022 DEPRESSION ASSESSMENT DEPRESSION ASS ESSMENT [facility] Start: 2022 FUV, Provider: Gisela Genao, Status: Pen, Time: 9:45 AM FUV, Provider: Gisela Genao, Status: Pen, Time: 9:45 AM [facility] Work Phone: Start: 2022 DUALRISSA, Provider: Thais Arroyo, Status: Pen, Time: 9:00 AM DUALRISSA, Provider: Thais Arroyo, Status: Pen, Time: 9:00 AM [facility] 4[address] Work Phone: Start: 02-01-2022 Leukocyte reduced re d blood cells [facility] Work Phone: Start: 02-01-2022 [place] Work Phone: Start: 02-01-2022 Administration of bl ood product [facility] Start: 02-01-2022 Transfusion of red b lood cells [facility] Start: 02-01-2022 Blood culture [facility] Work Phone: Start: 02-01-2022 Blood culture [facility] Work Phone: Start: 10-30-2021 Influenza vaccination [facility] Start: 07-09-2021 End: 09-08-2021 Urinalysis complete panel - Urine [facility] Work Phone: Comment on above: Expected: 07/09/2021 , Expires: 09/08/2021 Start: 06-17-2021 End: 08-17-2021 Bacteria identified in Urine by Culture URINE CULTURE Microbiology Routine Rectal malignant neoplasm (HCC) Dysuria Expected: 06/17/2021, Expires: 08/17/2021 [facility] Work Phone: Comment on above: Expected: 06/17/2021 , Expires: 08/17/2021 Start: 06-17-2021 End: 08-17-2021 Urinalysis complete panel - Urine URINALYSIS, WITH MICROSCOPIC Lab Routine Rectal malignant neoplasm (HCC) Dysuria Expected: 06/17/2021, Expires: 08/17/2021 [facility] Work Phone: Comment on above: Expected: 06/17/2021 , Expires: 08/17/2021 Start: 06-06-2021 End: 08-06-2021 Carcinoembryonic Ag [Mass/volume] in Serum or Plasma CEA BLD Lab Routine Rectal malignant neoplasm (HCC) Expected: 06/06/2021, Expires: 08/06/2021 [facility] Work Phone: Comment on above: Expected: 06/06/2021 , Expires: 08/06/2021 Start: 06-06-2021 End: 08-06-2021 CBC W Auto Differential panel - Blood CBC + DIFF Lab Routine Rectal malignant neoplasm (HCC) Expected: 06/06/2021, Expires: 08/06/2021 [facility] Work Phone: Comment on above: Expected: 06/06/2021 , Expires: 08/06/2021 Start: 06-06-2021 End: 08-06-2021 Comprehensive metabolic 2000 panel - Serum or Plasma COMP METABOLIC PANEL Lab Routine Rectal malignant neoplasm (HCC) Expected: 06/06/2021, Expires: 08/06/2021 [facility] Work Phone: Comment on above: Expected: 06/06/2021 , Expires: 08/06/2021 Start: 06-04-2021 End: 08-04-2021 Prostate specific Ag [Mass/volume] in Serum or Plasma [facility] Work Phone: Comment on above: Expected: 06/04/2021 , Expires: 08/04/2021 Start: 05-29-2021 End: 07-29-2021 DPYD GENOTYPING [facility] Work Phone: Comment on above: Expected: 05/29/2021 , Expires: 07/29/2021 Start: 03-01-2021 ADVANCE DIRECTIVE DISCUSSION ADVANCE DIRECTIVE DISCUSSION [facility] Start: 01-01-2022 DEPRESSION ASSESSMENT DEPRESSION ASS ESSMENT [facility] Start: 02-10-2021 FUV, Provider: Gisela Genao, Status: Pen, Time: 2:30 PM FUV, Provider: Gisela Genao, Status: Pen, Time: 2:30 PM [facility] Work Phone: Start: 02-10-2021 DUALAUDIO, Provider: Ace Mason, Status: Pen, Time: 2:00 PM DUALAUDIO, Provider: Ace Mason, Status: Pen, Time: 2:00 PM [facility] [address] Work Phone: Start: 10-30-2020 Influenza vaccination INFLUENZA (#1) [facility] Start: 05-05-2017 Adult depression screening assessment DEPRESSION SCREENING [facility] Start: 2015 Pneumococcal Vaccine : 65+ (1 of 1 - PCV) Pneumococcal Vaccine: 65+ (1 of 1 - PCV) [facility] Start: 2015 Pneumococcal Vaccine : 65+ Years (1 - PCV) Pneumococcal Vaccine: 65+ Years (1 - PCV) [facility] Start: 2015 Pneumococcal Vaccine : 65+ Years (1 of 1 - PCV) Pneumococcal Vaccine: 65+ Years (1 of 1 - PCV) [facility] Start: 2015 PNEUMOVAX AGE 65 AND OVER WITH 5YR LOOKBACK (#1) PNEUMOVAX AGE 65 AND OVER WITH 5YR LOOKBACK (#1) [facility] Start: 01-29-2015 Medicare Annual Well ness Visit Medicare Annual Wellness Visit [facility] Start: 2010 Hepatitis B Vaccines (1 of 3 - Risk 3-dose series) Hepatitis B Vaccines (1 of 3 - Risk 3-dose series) [facility] Start: 2010 RSV High Risk: (Elde rly (60+) or Population) (1 - Risk 60-74 years 1-dose series) RSV High Risk: (Elderly (60+) or Population) (1 - Risk 60-74 years 1-dose series) [facility] Start: 2010 RSV Immunization age d 60 or older (1 - 1-dose 60+ series) RSV Immunization aged 60 or older (1 - 1-dose 60+ series) [facility] Start: 2010 RSV Vaccine (1 - 1-d ose 60+ series) RSV Vaccine (1 - 1-dose 60+ series) [facility] Start: 2010 RSV Vaccine (1 - Ris k 60-74 years 1-dose series) RSV Vaccine (1 - Risk 60-74 years 1-dose series) [facility] Start: 02-10-2000 Pneumococcal vaccination Pneum ococcal Vaccine (1 of 1 - PCV) [facility] Start: 02-10-2000 Pneumococcal Vaccine : 50+ (1 of 1 - PCV) Pneumococcal Vaccine: 50+ (1 of 1 - PCV) [facility] Start: 02-10-2000 SHINGRIX VACCINE (1 of 2) OLIVA GRIX VACCINE (1 of 2) [facility] Start: 02-10-2000 Zoster Vaccines (1 of 2) Zoster Vacc gary (1 of 2) [facility] Start: 1995 COLOGUARD (FIT-DNA) COLOGUARD (FIT-D NA) [facility] Start: [address] COLONOGRAPHY [facility] Start: 1995 FECAL OCCULT BLOOD FECAL OCCULT BLOO D [facility] Start: 1995 Screening for malign ant neoplasm of colon [facility] Start: 1995 SIGMOIDOSCOPY SIGMOIDOSCOPY [facility] Start: 1985 LIPID SCREEN LIPID SCREEN [facility] Start: 1969 Hepatitis A Vaccines (1 of 2 - Risk 2-dose series) Hepatitis A Vaccines (1 of 2 - Risk 2-dose series) [facility] Start: 1969 SHINGRIX VACCINE (1 of 2) OLIVA GRIX VACCINE (1 of 2) [facility] Start: 1969 Urine microalbumin profile DTAP,TDAP,TD (1 - Tdap) [facility] Start: 02-10-1968 ANNUAL PCP TEAM GASOLINE TRUCK CRANE OPERATOR ISIDRA DISEASE VISIT ANNUAL PCP TEAM CHRONIC DISEASE VISIT [facility] Start: 02-10-1968 Anxiety Screening Anxiety Screening [facility] Start: 02-10-1968 BP CONTROLLED (<130/80) BP CONTROLLE D (<130/80) [facility] Start: 02-10-1968 Depression Screening Depression Scre ening [facility] Start: 02-10-1968 Diabetes mellitus screening Diabetes Screening [facility] Start: 02-10-1968 Hepatitis B surface antibody level LDL CHOLESTEROL [facility] Start: 02-10-1968 HEPATITIS C SCREENING HEPATITIS C SC NENA [facility] Start: 1962 COVID-19 VACCINE (1) COVID-19 VACCIN E (1) [facility] Start: 1962 Depression Screening Depression Scre [facility] Start: 02-10-1956 PNEUMOCOCCAL: 65+ (1 - PCV) PNEUMOCOCCAL: 65+ (1 - PCV) [facility] Start: 1955 COVID-19 VACCINE (#1) COVID-19 VACCI NE (#1) [facility] Start: 1950 COVID-19 VACCINE (#1) COVID-19 VACCI NE (#1) [facility] Start: 1950 ABDOMINAL AORTIC ANE URYSM SCREENING ABDOMINAL AORTIC ANEURYSM SCREENING [facility] Start: 1950 Abdominal aortic ane urysm screening Abdominal Aortic Aneurysm Screening [facility] Start: 1950 Lipid panel Lipid Panel [facility] Start: 1950 Medicare Annual Well ness (AWV) Medicare Annual Wellness (AWV) [facility] Start: 1950 Medicare Annual Well ness Visit Medicare Annual Wellness Visit (AWV) [facility] Start: 1950 Screening for malign ant neoplasm of colon [facility] Ankle brachial press ure index [facility] Work Phone: Anrct xm surg req an es general spi/edrl dx EXAM UNDER ANESTHESIA RECTAL History of rectal cancer [facility] Bacteria identified in Blood by Culture Blood Culture [facility] Work Phone: Blood culture [facility] Work Phone: End: 06-12-2022 CBC W Auto Differential panel - Blood CBC + DIFF Lab STAT Rectal malignant neoplasm (HCC) Anal squamous cell carcinoma (HCC) Once per week for 9 Occurrences starting 06/14/2021 until 06/12/2022 [facility] Work Phone: Comment on above: Once per week for 9 Occurrences starting 06/14/2021 until 06/12/2022 End: 06-12-2022 Comprehensive metabolic 2000 panel - Serum or Plasma COMP METABOLIC PANEL Lab STAT Rectal malignant neoplasm (HCC) Anal squamous cell carcinoma (HCC) Once per week for 9 Occurrences starting 06/14/2021 until 06/12/2022 [facility] Work Phone: Comment on above: Once per week for 9 Occurrences starting 06/14/2021 until 06/12/2022 CONFIRM BLOOD TYPE CONFIRM BLOOD TYPE Blood Bank Routine Pre-op evaluation 05/20/2022 11:00 AM EDT [facility] Work Phone: CT SIM PLANNING RADI ATION ONCOLOGY CT SIM PLANNING RADIATION ONCOLOGY Radiology Routine Rectal malignant neoplasm (HCC) Ordered: 06/04/2021 [facility] Work Phone: Comment on above: Ordered: 06/04/2021 End: 01-07-2023 ECG COMPLETE ECG COMPLETE ECG Routine Pre-operative clearance 1 Occurrences starting 01/07/2022 until 01/07/2023 [facility] Work Phone: Comment on above: 1 Occurrences starti ng 01/07/2022 until 01/07/2023 End: 08-02-2024 ECG COMPLETE ECG COMPLETE ECG Routine History of rectal cancer 1 Occurrences starting 08/03/2023 until 08/02/2024 [facility] Comment on above: 1 Occurrences starti ng 08/03/2023 until 08/02/2024 H&P for surgery H&P FOR SURGERY Procedures Routine History of rectal cancer Ordered: 08/03/2023 [facility] Comment on above: Ordered: 08/03/2023 End: 08-04-2023 INR in Platelet poor plasma by Coagulation assay INR (POC) Lab Routine Acute deep vein thrombosis (DVT) of proximal vein of left lower extremity (HCC) Once per month for 99 Occurrences starting 08/04/2022 until 08/04/2023 [facility] Work Phone: Comment on above: Once per month for 9 9 Occurrences starting 08/04/2022 until 08/04/2023 Insertion picc w/rs& i 5 yr/> IR INSERT PICC LINE >/= 5 YR Radiology Routine Rectal malignant neoplasm (HCC) Ordered: 06/06/2021 [facility] Work Phone: Comment on above: Ordered: 06/06/2021 IR IVC FILTER REMOVAL IR IVC TONO TER REMOVAL Radiology Routine S/P IVC filter Ordered: 11/03/2022 [facility] Work Phone: Comment on above: Ordered: 11/03/2022 End: 06-12-2022 Magnesium [Mass/volume] in Serum or Plasma MAGNESIUM BLD Lab STAT Rectal malignant neoplasm (HCC) Anal squamous cell carcinoma (HCC) Once per week for 9 Occurrences starting 06/14/2021 until 06/12/2022 [facility] Work Phone: Comment on above: Once per week for 9 Occurrences starting 06/14/2021 until 06/12/2022 End: 09-01-2024 MR Pelvis WO contrast MRI RECTUM WO/W IVCON Radiology Routine History of rectal cancer 1 Occurrences starting 08/03/2023 until 09/01/2024 [facility] Comment on above: 1 Occurrences starti ng 08/03/2023 until 09/01/2024 MR Pelvis WO contrast MRI RECTUM WO/W IVCON Radiology Routine History of rectal cancer 09/22/2023 7:36 PM EDT [facility] Work Phone: End: 08-17-2022 Mri pelvis w/o & w/contrast material MRI RECTUM WO/W IVCON Radiology Routine Rectal malignant neoplasm (HCC) Anal squamous cell carcinoma (HCC) 1 Occurrences starting 07/18/2021 until 08/17/2022 [facility] Work Phone: Comment on above: 1 Occurrences starti ng 07/18/2021 until 08/17/2022 Mri pelvis w/o & w/contrast material MRI RECTUM WO/W IVCON Radiology Routine Rectal malignant neoplasm (HCC) Anal squamous cell carcinoma (HCC) 09/17/2021 5:15 PM EDT [facility] Work Phone: End: 10-25-2022 Mri pelvis w/o & w/contrast material MRI RECTUM WO/W IVCON Radiology Routine Malignant neoplasm of rectum (HCC) 1 Occurrences starting 09/25/2021 until 10/25/2022 [facility] Work Phone: Comment on above: 1 Occurrences starti ng 09/25/2021 until 10/25/2022 Patient Education [place] Work Phone: Patient referral [facility] Work Phone: End: 08-03-2023 PT panel - Platelet poor plasma by Coagulation assay PROTHROMBIN TIME/PT Lab STAT Acute deep vein thrombosis (DVT) of proximal vein of left lower extremity (HCC) Once per month for 99 Occurrences starting 08/04/2022 until 08/03/2023 [facility] Work Phone: Comment on above: Once per month for 9 9 Occurrences starting 08/04/2022 until 08/03/2023 REFER FOR ADMIT INTERVIEW REFER FOR ADMIT INTERVIEW Procedures Routine History of rectal cancer Ordered: 08/03/2023 [facility] Comment on above: Ordered: 08/03/2023 Sigmoidoscopy flx w/biopsy single/multiple SIGMOIDOSCOPY FLEXIBLE WITH BIOPSY History of rectal cancer [facility] SURGICAL PATHOLOGY SURGICAL PATH OLOGY Lab Routine Rectal cancer (HCC) Ordered: 12/10/2021 [facility] Work Phone: Comment on above: Ordered: 12/10/2021 TYPE AND SCREEN,30 DAY TYPE AND SCREEN,30 DAY Blood Bank Routine Pre-op evaluation 05/20/2022 10:51 AM EDT [facility] Work Phone: US Carotid arteries [facility] Work Phone: End: 11-04-2023 US CAROTID ARTERIES [facility] US CAROTID ARTERIES [facility] Vascular Lab Routine Bruit of right carotid artery 1 Occurrences starting 11/03/2022 until 11/04/2023 [facility] Work Phone: Comment on above: 1 Occurrences starti ng 11/03/2022 until 11/04/2023 End: 05-21-2023 US LEG VEIN DVT [facility] US LEG VEIN DVT [facility] Vascular Lab Routine Personal history of DVT (deep vein thrombosis) Anticoagulation management encounter History of pulmonary embolism 1 Occurrences starting 05/20/2022 until 05/21/2023 [facility] Work Phone: Comment on above: 1 Occurrences starti ng 05/20/2022 until 05/21/2023 End: 11-04-2023 US LEG VEIN DVT [facility] US LEG VEIN DVT [facility] Vascular Lab Routine 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) 1 Occurrences starting 11/03/2022 until 11/04/2023 [facility] Work Phone: Comment on above: 1 Occurrences starti ng 11/03/2022 until 11/04/2023 End: 07-10-2024 XR Shoulder - left 3 Views XR SHOULDER GENERAL 3V OR MORE AP/TRUE AP/OTHER LEFT Radiology Routine Pain in left arm 1 Occurrences starting 06/11/2023 until 07/10/2024 [facility] Work Phone: Comment on above: 1 Occurrences starti ng 06/11/2023 until 07/10/2024 XR Shoulder - left 3 Views XR SHOULDER GENERAL 3V OR MORE AP/TRUE AP/OTHER LEFT Radiology Routine Pain in left arm 06/14/2023 8:53 AM EDT [facility] Work Phone: [facility] Immunizations Immunization Date Immunization Notes Care Provider Sudhakar melton 12-17-2016 tetanus toxoid, redu rocky diphtheria toxoid, and acellular pertussis vaccine, adsorbed No PCP None [facility] Payers Date Payer Category Payer Self-pay [id number] 2015 Medicare MEDICARE MEDICAR E A AND B [id number] 2015-Present [phone] [address] [address] [place] [address] Medicare [id number] 2015 Medicare [id number]. 1.13.159. [id number] 2015 Medicare [id number] 2012 Private Health Insurance BRYAN JORDAN PPO [id number] 2012-Present [phone] [address] [place] [address] [facility] [id number]. 2.7.3.461558.315 2005 Managed Care (Private) BRYAN SANTOS [facility] PLAN [id number]. [id number] 2005 Private Health Insurance [id number] .[id number]. 2.7.3.962618.315 2005 Private Health Insurance [id number] 1950 Unknown [id number] 2.0.1.177724.3.579. 2.1245 1950 Unknown [id number] 2.840.1.771217.3.579. 2.1243 Unknown Unknown VA AUTH REQUIR ED SEE NOTE [id number] Unknown [id number] 2.16840.1.966813.3.579. 2.462 Unknown [id number] 2.840.1.790333.3.579. 2.462 Unknown [id number] 2.16840.1.399492.3.579. 2.462 Unknown [id number] 2.16840.1.371911.3.579. 2.462 Unknown [id number] 2.16840.1.167392.3.579. 2.462 Unknown [id number] 2.16840.1.496171.3.579. 2.462 Unknown [id number] 2.16840.1.588672.3.579. 2.462 Unknown [id number] 2.16840.1.548886.3.579. 2.462 Unknown [id number] 2.16840.1.133152.3.579. 2.462 Unknown [id number] 2.16.840.1.839397.3.579. 2.462 Unknown [id number] 2.16.840.1.493140.3.579. 2.462 Unknown [id number] 2.16.840.1.317169.3.579. 2.462 Unknown [id number] 2.16.840.1.319246.3.579. 2.462 Unknown [id number] 2.16.840.1.702640.3.579. 2.462 Unknown [id number] 2.16.840.1.231701.3.579. 2.462 Unknown [id number] 2.840.1.271708.3.579. 2.462 Unknown [id number] 2.16840.1.668887.3.579. 2.462 Unknown [id number] 2.840.1.941137.3.579. 2.462 Unknown [id number] 2.840.1.386160.3.579. 2.462 Unknown [id number] 2.840.1.204507.3.579. 2.462 Unknown [id number] 2.840.1.286178.3.579. 2.462 Unknown [id number] 2.840.1.668083.3.579. 2.462 Unknown [id number] 2.840.1.995892.3.579. 2.462 Unknown [id number] 2.16840.1.949983.3.579. 2.462 Unknown [id number] 2.16.840.1.933293.3.579. 2.462 Unknown [id number] 2.16840.1.697933.3.579. 2.462 Unknown [id number] 2.16.840.1.355401.3.579. 2.462 Unknown [id number] 2.16840.1.969877.3.579. 2.462 Unknown [id number] 2.16.840.1.609457.3.579. 2.462 Unknown [id number] 2.16.840.1.221018.3.579. 2.462 Unknown [id number] 2.16.840.1.358144.3.579. 2.462 Unknown [id number] 2.16840.1.656129.3.579. 2.462 Unknown [id number] 2.16840.1.300102.3.579. 2.462 Unknown [id number] 2.16840.1.560377.3.579. 2.462 Social History Date Type Detail Facility Start: 02-11-2021 End: 07-01-2022 Former smoker Former smoker [facility] Start: 02-11-2021 End: 04-25-2024 Tobacco smoking status CTIS Ex-smoker [facility] Start: 01-28-1970 End: 01-29-2000 History of tobacco use Current smoker [facility] Start: 01-28-1970 End: 01-29-2000 History of tobacco use Cigarette Smoker [facility] Start: 05-29-2021 End: 07-14-2023 Alcohol intake Current drinker of alcohol (finding) [facility] Start: 03-20-2021 History SDOH Alcohol Comment rarely [facility] Start: 1950 Sex Assigned At Male C [facility] Start: 05-19-2021 End: 03-27-2024 Exposure to SARS-CoV-2 (event) Not sure [facility] Start: 06-04-2020 End: 07-08-2023 Tobacco smoking status CTIS Unknown if ever smoked [facility] Start: 01-18-2014 Occasional [place] Start: 01-18-2014 None [place] Start: 01-18-2014 Spouse/ Signif icant Other [facility] Start: 01-18-2014 Non-smoker [place] Start: 02-11-2021 End: 11-30-2023 Tobacco use and exposure Smokeless tobacco non-user [facility] Start: 03-15-2022 History SDOH Housing Unable to Pay 3 [facility] Start: 05-20-2022 End: 07-05-2024 Alcohol intake Ex-drinker (finding) [facility] Start: 03-14-2022 End: 07-01-2022 Social connection and isolation panel [facility] Start: 07-15-2023 In a typical week, h ow many times do you talk on the telephone with family, friends, or neighbors? Patient refused [facility] Are you now , , , , never or living with a partner? Refused [facility] (I/We) worried wheth er (my/our) food would run out before (I/we) got money to buy more. DK or Refused [facility] Start: 03-14-2021 Gender identity Identifies as male gender (finding) [facility] Start: 03-14-2021 Sexual orientation Heterosexual (reagan wood) [facility] Has the [employer], or [employer] threatened to shut off services in your home in past 12Mo No [facility] Medical Equipment Procedure Code Equipment Code [...] approach, with fusion Collagen haemostatic agent, non-antimicrobial [id number] FDA Start: 01-18-2024 Discectomy, spine, cervical, anterior approach, with fusion Ligation clip, metallic [id number] FDA Start: 01-18-2024 Discectomy, spine, cervical, [...] approach, with fusion screw 4.0 fixed angle (dsos) FDA Start: 01-18-2024 Discectomy, spine, cervical, anterior [...] FDA Start: 01-18-2024 Coil Concerto 5m m Fork Nylon 20cm Embolization Detachable Accepts .021in - [id number] Start: 02-01-2022 Device Angio-Sea l Vip 6fr .035in Collagen 70cm Closure Valuelink Guidewire - [id number] Start: 02-01-2022 System Option 6. 5fr 0-32mm 5fr 70cm Embolic Protection Filter Kit - [id number] Start: 02-16-2022 System Option 6. 5fr 0-32mm 5fr 70cm Embolic Protection Filter Kit - [id number] Start: 03-02-2022 Catheter Triever 24 24fr Thrombectomy 22-101 [id number] Start: 03-02-2022 Coil Concerto Latticefx 4mm Fork Nylon Fiber Polypropylene 10cm - [id number] Start: 02-01-2022 Coil Azur Cx Hydrocoil 2mm .018in Hydrogel 4cm Embolization Detachable Loop - [id number] Start: 02-01-2022 Coil Azur Cx Hydrocoil 3mm .018in Hydrogel 8cm Embolization Detachable Loop - [id number] Start: 02-01-2022 Coil Azur Cx Hydrocoil 2mm .018in Hydrogel 4cm Embolization Detachable Loop - [id number] Start: 02-01-2022 Coil Azur Cx Hydrocoil 2mm .018in Hydrogel 4cm Embolization Detachable Loop - [id number] Start: 02-01-2022 Coil Azur Cx Hydrocoil 2mm .018in Hydrogel 4cm Embolization Detachable Loop - [id number] Start: 02-01-2022 Coil Azur Cx Hydrocoil 2mm .018in Hydrogel 4cm Embolization Detachable Loop - [id number] Start: 02-01-2022 Coil Azur Cx Hydrocoil 3mm .018in Hydrogel 8cm Embolization Detachable Loop - [id number] Start: 02-01-2022 Coil Azur Cx Hydrocoil 3mm .018in Hydrogel 8cm Embolization Detachable Loop - [id number] Start: 02-01-2022 Coil Azur Cx Hydrocoil 3mm .018in Hydrogel 8cm Embolization Detachable Loop - [id number] Start: 02-01-2022 Coil Azur Cx Hydrocoil 3mm .018in Hydrogel 8cm Embolization Detachable Loop - [id number] Start: 02-01-2022 Peripheral arter y stent, bare-metal ()[id number] FDA Start: 07-08-2023 Functional Status Date Assessment Result Facility 03-10-2022 Are you deaf, or do you have serious difficulty hearing No 03/10/2022 9:19 AM Isaura Lakhani RN No [facility] 03-10-2022 Are you blind, or do you have serious difficulty seeing, even when wearing glasses No 03/10/2022 9:19 AM Isaura Lakhani RN No [facility] 03-10-2022 Do you have serious difficulty walking or climbing stairs No 03/10/2022 9:19 AM Isaura Lakhani, DERRICK No [facility] 03-10-2022 Do you have difficul ty dressing or bathing No 03/10/2022 9:19 AM Isaura Lakhani, DERRICK No [facility] 03-10-2022 Because of a physica l, mental, or emotional condition, do you have difficulty doing errands alone such as visiting a physician's office or shopping No 03/10/2022 9:19 AM Isaura Lakhani RN No [facility] Mental Status Date Assessment Result Facility 06-11-2023 Cognitive function Level Of Cons ciousness Awake;Alert;Inappropriate;R estless [facility] Work Phone: 03-10-2022 Because of a physica l, mental, or emotional condition, do you have serious difficulty concentrating, remembering, or making decisions No 03/10/2022 9:19 AM Isaura Lakhani, DERRICK No [facility] 03-01-2022 Cognitive function Level Of Cons ciousness Awake;Alert;Appropriate;Fol lows Commands [facility] Work Phone: 06-09-2021 Cognitive function Voice/Name [facility] Work Phone: Clinical Notes 07-16-2020 to 01-02-2025 Note Date & Type Note Facility 01-02-2025 Note [facility] Medical Records Department [address] [place] [address] History Physical Exam 01/02/25 1153 MR#: [id number] Acct: [id number] Name: JAI LUNA Rep #: [id number] : 1950 74 From: Howard Siddiqui MD PCP: Dr. Katy Faust MD Status:[facility] Location: [place] [address] History and Physical Date of Admission: 01/02/25 MR#: [id number] Acct: [id number] Name: JAI LUNA Rep #: [id number] : 1950 Provider: Dr. Howard Siddiqui MD Age/Sex: 74/M Location: [facility] [place].JORGE Status: Signed Intake Vital Signs 10/14/2507:58 11/29/2506:49 [...] 12/22/16) Essential hypertension 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 pectoris Hypoacusis Dyslipidemia [...] to an u (more content not included)... [facility] 12-26-2024 Note HNO ID: [id number] Author: SRINIVASAN DA SILVA APRN.ENGINEERING RESEARCH MANAGER Service: ? Author Type: Nurse Specialist Type: [...] Scheduled for back surgery on 06/03 at [facility] by Dr. Siddiqui to address spinal stenosis in the lower spine. - Has seen [facility] for pre-surgery evaluation. He has [...] lumbar spine surgery scheduled on the at [facility] with Dr. Siddiqui. - No active [...] perspective. CBC and CMP was completed at [facility] on December 20. - Advised to call Dr. Siddiqui's office the day before surgery to confirm surgery time if he does not receive a call with his surgery time. 2. Spinal stenosis of lumbar region with neurogenic claudication (M48.062) - Chronic lumbar spinal stenosis with neurogenic claudication affecting left leg; surgery planned to address this. 3. Coronary artery disease involving platinum coronary artery of platinum heart without angina pectoris (I25.10) 4. 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 S/P coronary artery stent placement (Z95.5) 6. History of pulmonary embolism (Z86.711) - Cardiology evaluation completed prior to surgery; instructed to stop aspirin and Plavix as per cardiology recommendations. 7. History of rectal cancer (Z85.048) 8. Presence o (more content not included)... [facility] 11-29-2024 Progress note [facility] 08-23-2024 Evaluation note Diagnosis Onset Date Resolution [...] November 29 10:38am 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 pectoris chronic November 29 10:38am Dyslipidemia chronic November 29, 2024 10:38am Essential hypertension chronic Oc tob2024 10:38am Peripheral vascular disease chronic November 29 10:38am [facility] Work Phone: 1(592) 678-749306-17-2025 NoteHNO ID: [id number] Author: NORM PARKER APRN.CUP MACHINE OPERATOR Service: ? 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 Appearanc (more content not included)...[facility]06-17-2025 History of Present illness Narrative* Norm Parker APRN.CUP MACHINE OPERATOR - 08/15/2024 3:27 PM EDT Images from [...] ([facility]) - 07/21/2022 Pulmonary Embolism and Infarction ([facility]) - 03/02/2022 Pulmonary Embolism ([facility]) - 02/13/2022 Hypokalemia - 02/10/2022 Urinary Retention - [address] ([facility]) - 01/28/2022 Rectal Cancer ([facility]) - 01/27/2022 Rectal Malignant Neoplasm ([facility]) - 05/29/2021 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 Norm Parker APRN-CHELSIE documented in this encounterNorwalk Memorial Hospital06-10-2025 Telephone encounter Note * Telephone Encounter - Cony Raygoza RN - 08/08/2024 2:34 PM EDT Patient calls to check on forms being sent to [employer]. Patient reports that he spoke to them today and they have not received the forms for ostomy pouches. Patient reports that he is down to two pouches and will need them very soon. Patient requesting call back at [phone]. Please review and advise, Cony Raygoza RN [facility]06-10-2025 Miscellaneous Notes* Telephone Encounter - Cony Raygoza RN - 08/08/2024 2:34 PM EDT Patient calls to check on forms being sent to [employer]. Patient reports that he spoke to them today and they have not received the forms for ostomy pouches. Patient reports that he is down to two pouches and will need them very soon. Patient requesting call back at [phone]. Please review and advise, Cony Raygoza RN documented in this encounterNorwalk Memorial Hospital06-02-2025 NoteHNO ID: [id number] Author: LEONARDO VILLAREAL RN Service: ? Author [...] 45 minutes SCOTTIE Robbins RN CWOCN The [facility] nursing pager [phone] (M-F 7a-4p, Sat, Sun, Holiday 7a-3p)[facility]06-02-2025 History of Present illness Narrative* Leonardo Villareal [...] 45 minutes SCOTTIE Robbins RN CWOCN [facility] nursing pager [phone] (M-F 7a-4p, Sat, Sun, Holiday 7a-3p) documented in this encounterNorwalk Memorial Hospital05-20-2025 NoteHNO ID: [id number] Author: PRAVEENA DURAN RN Service: ? Author Type: Registered Nurse Type: Progress Notes Filed: 07/18/2024 12:41 Note Text: [place] [address] Patient: Jai Luna Patient Address: [address] [place] [address] Preferred Gender: male Date of : 1950 Type of Stoma: Loop Ileostomy Diagnosis: Ileostomy Status Z93.2 OSTOMY SUPPLY ORDER FORM Pouch: ConvaTec: 1 ?" Natura + Drainable pouch, Transparent #[id number] 30 day use - 2 Boxes Wafer: ConvaTec: Hailey-Fit Natura 1 3/4" Flat Durahesive # [id number] 30 day use - 2 Boxes Moldable Ring: Sharri CeraRing Regular # [id number] 30 day use - 2 Boxes Refills: 11 Attending Physician: Dr. Cheung For immediate authorization, please contact the physician?s office. SIGNATURE: Praveena Duran RN PATIENT NAME: Jai Luna DATE: July 18, 2024 TIME: 12:38 PM CONTACT #: [phone]05-19-[facility] Note HNO ID: [id number] Author: PRAVEENA DURAN RN Service: ? Author Type: Registered Nurse Type: Progress Notes Filed: 07/18/2024 12:44 Note Text: WO Nursing Consult Topic: WOC Consultation Note Outcome: Pt to A30 for appointment with [facility] Nursing. He has an established ileostomy for several years. He is here today with complaints of peristomal ulcer and pain. We discussed switching from a flat to a convex pouching system. Pt agreed with this. He has an established relationship with [employer] for supplies. If he likes the new pouch he can order it from [employer]. I provided him with x4 sets of [...] hour SCOTTIE Hoffman, RN, CWOCN For non-emergent [facility] Nursing patient care needs - Please place a consult via Epic under "ostomy". WO Nurse Available Hours: M-F: [phone]; Weekends AND Holidays: [phone] [facility] Nursing patient care needs - Page #[phone], during available hours only.[facility]05-19-2025 History of Present illness Narrative* Praveena Duran, [...] this. He has an established relationship with [employer] for supplies. If he likes the new pouch he can order it from [employer]. I provided him with x4 sets of [...] per day: varies Current pouching system: one-piece [place] Premier convex drainable pouch. Stoma paste. Current wearing time: 2 days- seal was intact but concern is for pressure injury related to use of convexity. Will switch to flat pouching system to see if this helps. Recommendations: Skin Care: applied Convatec Stomahesive powder followed by 3m Cavilon no-sting skin sealant Pouching System: 1 3/4" Convatec SurFit Natura Durahesive flat cut-to-fit flange. [place] CearRing. Drainable pouch. Wear Time Goal: 3-4 days Time Increment: 1 hour SCOTTIE Hoffman, RN, CWOCN For non-emergent [facility] Nursing patient care needs - Please place a consult via [facility] under "ostomy". WO Nurse Available Hours: M-F: [phone]; Weekends & Holidays: [phone] For emergent [facility] Nursing patient care needs - Page #[phone], during available hours only. documented in this encounterNorwalk Memorial Hospital05-08-2025 Evaluation note* Diagnosis Onset Date Resolution Status Admit Date Spinal stenosis of lumbar re gion with neurogenic claudication acute July 06, 2024 8:28am Status post cervical spinal fusion a cute July 06, 2024 8:28am [facility] Work Phone: 1(696) 539-735005-08-2025 Evaluation note* Diagnosis Onset Date Resolution Status [...] Thoracic radiculopathy acute Ju ly 2024 1:14pm [facility] Work Phone: 1(190) 533-680205-08-2025 Evaluation note* Diagnosis Onset Date Resolution Status [...] Thoracic radiculopathy acute [place] 2024 8:21am [facility] Work Phone: [phone] Telephone encounter Note* Telephone Encounter - Norm [...] interference with the stoma. Thank you, Norm [facility]05-07-2025 Miscellaneous Notes* Telephone Encounter - Norm [...] stoma. Thank you, Norm documented in this encounterNorwalk Memorial Hospital05-07-2025 History of Present illness Narrative* Norm [...] of Proximal Vein of Left Lower Extremity ([facility]) - 07/21/2022 Pulmonary Embolism and Infarction ([facility]) - 03/02/2022 Pulmonary Embolism ([facility]) - 02/13/2022 Hypokalemia - 02/10/2022 Urinary Retention - [address] ([facility]) - 01/28/2022 Rectal Cancer ([facility]) - 01/27/2022 Rectal Malignant Neoplasm ([facility]) - 05/29/2021 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 JORDON Carrillo documented in this encounterNorwalk Memorial Hospital05-07-2025 NoteHNO ID: [id number] Author: NORM PARKER APRN.CNP Service: ? 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 ASSESSMENT/PLAN: (more content not included)...[facility]05-05-2025 Telephone encounter Note* Telephone Encounter - Norm Parker APRN.CNP - 07/03/2024 11:20 AM EDT Noted, agree we can see him to decide which would be best, likely will need wound center but can see the area first to decide. [facility]05-05-2025 Miscellaneous Notes* Telephone Encounter - Norm [...] to gerneral surgery or wound center at [facility]. Appointment made for Wednesday but aware routing to provider to review Celeste Maravilla MA documented in this encounterNorwalk Memorial Hospital05-05-2025 Telephone encounter Note * Telephone Encounter [...] to gerneral surgery or wound center at [facility]. Appointment made for Wednesday but aware routing to provider to review Celeste Maravilla MA [facility]04-02-2025 Instructions* Patient Instructions* Katy Faust MD [...] flax seed as well. documented in this encounterNorwalk Memorial Hospital04-02-2025 NoteHNO ID: [id number] Author: KATY FAUST MD Service: ? Author Type: Physician Type: Progress Notes Filed: 05/31/2024 17:06 Note Text: This note was created using MongoDBriter. Subjective Jai Luna is a 74 year [...] to schedule a follow-up appointment with Dr. Sdidiqui for further evaluation and potential surgical intervention. - Discussed the possibility of seeking a second opinion from another family protection specialist if symptoms persist or worsen. # [...] the date of the service which included [id number] patient care, completing clinical documentation, obtaining and/or reviewing separately obtained history, performing a medically appropriate examination, counseling and educating the patient/family/caregiver, and ordering medications, tests, or procedures . Katy Faust MD The patient consented to the use of ambient Reichhold software for draft documentation of the visit consistent with [facility]?s Notice of Privacy Practices. [facility]04-02-2025 History of Present illness Narrative* Katy Faust MD - 05/31/2024 4:30 PM EDT This note was created using MongoDBriter. Subjective Jai Luna is a 74 year [...] of seeking a second opinion from another family protection specialist if symptoms persist or worsen. # [...] the date of the service which included [id number] patient care, completing clinical documentation, obtaining and/or reviewing separately obtained history, performing a medically appropriate examination, counseling and educating the patient/family/caregiver, and ordering medications, tests, or procedures . Katy Faust MD The patient consented to the use of Genticel software for draft documentation of the visit consistent with [facility] s Notice of Privacy Practices. documented in this encounterNorwalk Memorial Hospital02-21-2025 Evaluation note* Diagnosis Onset Date Resolution Status Admit Date Spinal stenosis of lumbar region with neurogenic claudication acute April 21, 2 025 12:23pm Status post cervical spinal fusion acute April 21, 025 12:23pm Spinal stenosis of lumbar region with neurogenic claudication acute July 06, 2024 8: 28am Status post cervical spinal fusion acute July 06, 2024 8: 28am [facility] Work Phone: 1(551) 569-234612-30-2024 Telephone encounter Note* Telephone Encounter - Alba Higginbotham MA - 02/28/2024 9:20 AM EST Nothing in Care Everywhere. [facility]12-30-2024 Miscellaneous Notes* Telephone Encounter - Alba Higginbotham MA - 02/28/2024 9:20 AM EST Nothing in Care Everywhere. * Telephone Encounter - Katy Faust MD - 02/27/2024 11:38 PM EST See MyChart reply documented in this encounterNorwalk Memorial Hospital12-29-2024 Telephone encounter Note * Telephone Encounter - Katy Faust MD - 02/27/2024 11:38 PM EST See MyChart reply [facility]12-23-2024 NoteHNO ID: [id number] Author: ROBBIE CAM MA Service: ? Author Type: Reprographics Technician Type: Progress Notes Filed: 02/21/2024 08:31 Note Text: POPULATION HEALTH NAVIGATION OUTREACH Action/FYI Patient replied via wanting to schedule for flank pain, I sent info for nurse cotton opener. Reason for Outreach Returned Call/MyChart Patient Contacted: Spoke to patient/parent/or legal guardian Patient identified by name and date of : Yes Returned call/MyChart actions taken: MyChart message sent Navigation Signature: Robbie Cam MA February 21, 2024 8:30 [facility]12-20-2024 NoteHNO ID: [id number] Author: ROBBIE CAM MA Service: ? Author Type: Reprographics Technician Type: Progress Notes Filed: 02/18/2024 10:29 Note [...] 18, 2024 10:16 AM documented in this encounterNorwalk Memorial Hospital12-20-2024 NotePatient Outreach (NETNAV) JAI LUNA ([id number]) 1950 M Date Time Provider Department 02/18/24 [...] flank pain, I sent info for nurse cotton opener. Reason for Outreach Returned Call/MyChart Patient Contacted: [...] Date Reviewed: 01/04/2024 Reviewed by: Norm Parker APRN.CUP MACHINE OPERATOR - Fully Assessed Reason for Visit: Population [...] 09/22/2023 Encounter Status:Closed by DORINA, ROBBIE on 02/18/24[facility] Telephone encounter Note* Telephone Encounter - Katy Faust MD - 02/14/2024 7:55 PM EST Noted. Katy Faust MD [facility]12-16-2024 Miscellaneous Notes* Telephone Encounter - Katy [...] surgery in December [address]iddiqui [facility]. Advised patient to go to [facility] ER for evaluation. He said has no ride until his comes home, has one car. Patient said he would go to ER after comes home. documented in this encounterNorwalk Memorial Hospital12-16-2024 Telephone encounter Note * Telephone Encounter [...] surgery in December [address] Siddiqui [facility]. Advised patient to go to [facility] ER for evaluation. He said has no ride until his comes home, has one car. Patient said he would go to ER after comes home. [facility]11-19-2024 [facility] Medical Records Department [address] [place] [id number] History Physical Exam 01/18/24 0728 MR#: [id number] Acct: [id number] Name: JAI LUNA Rep #: [id number] : 1950 73 From: Howard Siddiqui MD PCP: Dr. Katy Faust MD Status:REG [facility] Location: [place] [address] History and Physical Date of Admission: 01/18/24 MR#: [id number] Acct: [id number] Name: JAI LUNA Rep #: [id number] : 1950 Provider: Dr. Howard Siddiqui MD Age/Sex: 73/M Location: [facility] Status: Signed Intake Vital Signs 11/09/2409:35 Height [...] 12/22/16) Essential hypertension 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 pectoris Hypoacusis Dyslipidemia [...] by me, Dr. Howard Siddiqui MD 01/11/24 0753. Part of today???s visit was documented by [...] leg. Patient states his (more content not included)...[facility]11-05-2024 NoteHNO ID: [id number] Author: NORM PARKER APRN.CUP MACHINE OPERATOR Service: ? Author Type: Nurse Practitioner Type: [...] done on 01/18/[address] Siddiqui at [facility]. History of having anesthesia: Yes. Any [...] recent sickness. No history of CVA or HI. Sees [facility], had a stress test yesterday. [...] Embolism - 09/22/2023 Pvd (Peripheral Vascular Disease) ([facility]) - 09/22/2023 History of Dvt (Deep Vein Thrombosis) - 09/22/2023 Acute Deep Vein Thrombosis (Dvt) of Proximal Vein of Left Lower Extremity ([facility]) - 07/21/2022 Pulmonary Embolism and Infarction ([facility]) - 03/02/2022 Pulmonary Embolism ([facility]) - 02/13/2022 Hypokalemia - 02/10/2022 Urinary Retention - [address] ([facility]) - 01/28/2022 Rectal Cancer ([facility]) - 01/27/2022 Rectal Malignant Neoplasm ([facility]) - 05/29/2021 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 Siddiqui at [facility]. History of having anesthesia: Yes. Any [...] recent sickness. No history of CVA or HI. Sees [facility], had a stress test yesterday. [...] Embolism - 09/22/2023 Pvd (Peripheral Vascular Disease) ([facility]) - 09/22/2023 History of Dvt (Deep Vein Thrombosis) - 09/22/2023 Acute Deep Vein Thrombosis (Dvt) of Proximal Vein of Left Lower Extremity ([facility]) - 07/21/2022 Pulmonary Embolism and Infarction ([facility]) - 03/02/2022 Pulmonary Embolism ([facility]) - 02/13/2022 Hypokalemia - 02/10/2022 Urinary Retention - [address] ([facility]) - 01/28/2022 Rectal Cancer ([facility]) - 01/27/2022 Rectal Malignant Neoplasm ([facility]) - 05/29/2021 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 Siddiqui at [facility]. 2. Spinal stenosis in cervical region [...] on chronic conditions and medications.. Norm Parker APRN-CUP MACHINE OPERATOR documented in this encounterNorwalk Memorial Hospital10-23-2024 Telephone encounter Note * Telephone Encounter - Don Feldman LPN - 12/22/2023 1:36 PM EDT Last appointment was 11/30/23. Pre-op is to be within 30 days of surgery date and so will have patient keep appointment. [facility]10-23-2024 Miscellaneous Notes* Telephone Encounter - Don [...] be faxing the form. documented in this encounterNorwalk Memorial Hospital10-23-2024 Telephone encounter Note * Telephone Encounter [...] Siddiqui is to be faxing the form. [facility]10-01-2024 History of Present illness Narrative* Norm Parker APRN.CUP MACHINE OPERATOR - 11/30/2023 9:53 AM EDT Images from the original note were not included. SUBJECTIVE Jai Luna is a 73 year old male here today for acute concern. Chief Complaint Patient presents with: Pain (Shoulder Pain): left has been to PT at [facility] per Dr. Siddiqui but did not help. MRI is scheduled 12/09/23 through [facility] Jai Luna is a 73 year old male. He is an established patient of Katy Faust MD. He is here today acutely for concerns of left shoulder pain. Rated as 10/10 at times. Radiates down from theneck to arm. Described as a burning and throbbing, impacting sleep. He has done PT at [facility] with no improvement. Seeing Dr. Siddiqui with [facility] and is getting an MRI done [...] Embolism - 09/22/2023 Pvd (Peripheral Vascular Disease) ([facility]) - 09/22/2023 History of Dvt (Deep Vein Thrombosis) - 09/22/2023 Acute Deep Vein Thrombosis (Dvt) of Proximal Vein of Left Lower Extremity ([facility]) - 07/21/2022 Pulmonary Embolism and Infarction ([facility]) - 03/02/2022 Pulmonary Embolism ([facility]) - 02/13/2022 Hypokalemia - 02/10/2022 Urinary Retention - [address] ([facility]) - 01/28/2022 Rectal Cancer ([facility]) - 01/27/2022 Rectal Malignant Neoplasm ([facility]) - 05/29/2021 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 Norm Parker APRN-CHELSIE documented in this encounterNorwalk Memorial Hospital09-30-2024 Telephone encounter Note * Telephone Encounter - Coral Charles RN - 11/29/2023 3:50 PM EDT Spoke with patient. Given message from provider's office. Patient verbalizes understanding. Appointment scheduled. Coral Charles RN [facility]09-30-2024 Miscellaneous Notes* Telephone Encounter - Coral [...] not sleep.. PATIENT did physcial therapy at [facility] x 4 times with norelief. Patient sees spine doctor which recommended a MRI, scheduled for 12/09/23. Patient is requesting pain meds Patient uses [facility] please review and advise. Calista Rehman LPN documented in this encounterNorwalk Memorial Hospital09-30-2024 Telephone encounter Note * Telephone Encounter - Norm Parker APRN.CNP - 11/29/2023 3:36 PM EDT He really needs to be seen for an appointment for pain medication because he is likely going to require something controlled for his pain. [facility]09-30-2024 Telephone encounter Note* Telephone Encounter - Calista Rehman LPN - 11/29/2023 2:50 PM EDT Patient is calling with left shoulder pain 10/10 pain scale. The pain radiates down from neck to arm, burning throbss and can not sleep.. PATIENT did physcial therapy at [facility] 4 times with ahmet. Patient sees spine doctor which recommended a MRI, scheduled for 12/09/23. Patient is requesting pain meds Patient uses [facility] please review and advise. Calista Rehman LPN [facility]09-10-2024 Telephone encounter Note* Telephone Encounter - Jenna Sevilla LPN - 11/09/2023 10:13 AM EDT Forms finally went through to fax number provided for [employer]. Patient updated. Jenna Sevilla LPN [facility]09-10-2024 Miscellaneous Notes* Telephone Encounter - Jenna Sevilla LPN - 11/09/2023 10:13 AM EDT Forms finally went through to fax number provided for [employer]. Patient updated. Jenna Sevilla LPN * Telephone Encounter - Jenna Sevilla LPN - 11/05/2023 4:44 PM EDT Refaxed the forms to [phone]. Have attempted to fax the forms to that same number several times and none have gone through. Jenna Sevilla LPN * Telephone Encounter - Cony Raygoza RN - 11/05/2023 3:59 PM EDT Patient calls to report that [facility] has not received any orders/forms at this time. Requesting they be faxed to [phone]. Faxed available order. No forms for this nurse to fax. Cony Raygoza RN * Telephone Encounter - Jenna Sevilla LPN - 10/27/2023 3:23 PM EDT Spoke to staff at [facility], they had faxed another form to us this am. Staff member aware our faxed not going through to them and no faxes received here at the clinic from them. Jenna Sevilla LPN * Telephone Encounter - Jenna Sevilla LPN - 10/27/2023 3:09 PM EDT Order was emailed to [place] due to faxes were not going through. [...] accordingly. See MyChart reply documented in this encounterNorwalk [facility]09-09-2024 Telephone encounter Note * Telephone Encounter - Jenna Sevilla LPN - 11/08/2023 12:18 PM EDT Made a copy of the forms and placed in mail. Attempted again to fax to number provided, did not go through. Jenna Sevilla LPN [facility]09-09-2024 Miscellaneous Notes* Telephone Encounter - Jenna Sevilla LPN - 11/08/2023 12:18 PM EDT Made a copy of the forms and placed in mail. Attempted again to fax to number provided, did not go through. Jenna Sevilla LPN * Telephone Encounter - Whitney Blunt LPN - 10/28/2023 10:54 AM EDT Contacted [facility] again letting them know we have made several attempts to fax orders in the last couple weeks but faxes are not going through, fast busy. Nsh Teacher states other faxes are going through and there is not other number to fax to but she did give me a email address of [email or web address] to try. Documentation has been emailed. * Telephone Encounter - Katy Faust MD - 10/27/2023 7:59 PM EDT Let patient known when this issue of RXs getting to [place] has been taken care of documented in this encounterNorwalk Memorial Hospital09-06-2024 Telephone encounter Note * Telephone Encounter - Jenna Sevilla LPN - 11/05/2023 4:44 PM EDT Refaxed the forms to [phone]. Have attempted to fax the forms to that same number several times and none have gone through. Jenna Sevilla LPN [facility]09-06-2024 Telephone encounter Note* Telephone Encounter - Cony Raygoza RN - 11/05/2023 3:59 PM EDT Patient calls to report that [facility] has not received any orders/forms at this time. Requesting they be faxed to [phone]. Faxed available order. No forms for this nurse to fax. Cony Raygoza, RN [facility]08-29-2024 Telephone encounter Note* Telephone Encounter - Whitney Blunt LPN - 10/28/2023 10:54 AM EDT Contacted [facility] again letting them know we have made several attempts to fax orders in the last couple weeks but faxes are not going through, fast busy. Nsh Teacher states other faxes are going through and there is not other number to fax to but she did give me a email address of [email or web address] to try. Documentation has been emailed. [facility]08-28-[facility] Telephone encounter Note* Telephone Encounter - Katy Faust MD - 10/27/2023 7:59 PM EDT Let patient known when this issue of RXs getting to [place] has been taken care of [facility]08-28[facility] Telephone encounter Note* Telephone Encounter - Jenna Sevilla LPN - 10/27/2023 3:23 PM EDT Spoke to staff at [facility], they had faxed another form to us this am. Staff member aware our faxed not going through to them and no faxes received here at the clinic from them. Jenna Sevilla LPN [facility]08-28-2024 Telephone encounter Note* Telephone Encounter - Jenna Sevilla LPN - 10/27/2023 3:09 PM EDT Order was emailed to [place] due to faxes were not going through. Jenna Sevilla LPN [facility]08-28-2024 Telephone encounter Note* Telephone Encounter - Fela Church LPN - 10/27/2023 2:23 PM EDT Checking to see if this has been faxed. If it is done please close encounter. Fela Church LPN [facility]08-23-2024 Telephone encounter Note* Telephone Encounter - [...] above. Please process accordingly. See MyChart reply [facility]07-26-20[facility] Telephone encounter Note* Telephone Encounter - Shaneka Perez - 09/24/2023 10:51 AM EDTSummary: plavix DOS 09/30/2023 received and scanned into chart [facility] Work Phone: [phone] Miscellaneous Notes* Telephone Encounter - Shaneka Perez - 09/24/2023 10:51 AM EDTSummary: plavix DOS 09/30/2023 received and scanned into chart documented in this encounterNorwalk Memorial Hospital07-24-2024 History of Present illness Narrative* Parvin [...] 2023 TIME: 5:53 PM documented in this encounterNorwalk Memorial Hospital07-24-2024 History and physical note * Linda Daley, NAVNEET.CUP MACHINE OPERATOR - 09/22/2023 2:50 PM EDT Images from the original note were not included. [facility] HISTORY [...] artery 07/08/23. Completed by Dr. Reynolds at [facility] on Plavix and ASA. History of [...] have a large neck STOP-Bang Score: 3 [id number] Score: Hypertension history: Yes Vascular disease history: Yes [id number] Score: ANESTHESIA FINDINGS: Intubation History: No history [...] clearance for Plavix faxed to Dr. Reynolds ([facility]) Patient s/p left arm angiogram, IVUS [...] He had an OV with Dr Muñiz ([facility]) on 07/14/23 for rectal bleeding and it [...] fevers. Neurological: No history of TIA's, stroke, ENGINEERING RESEARCH MANAGER tumor, impaired sensorium, hemiplegia, paraplegia orquadraplegia. No [...] chest pain, CHF, congenital heart defect, recent HI and murmur/valvular heart disease. GI: See HPI. [...] Coronary atherosclerosis of unspecified type of vessel, platinum or graft Coronary artery disease Diverticulosis of [...] Status PROSTATE SURGERY HX STRABISMUS RECESSION/RESCJ 1 [facility] Strabismus surgery TONSILLECTOMY HX TONSILLECTOMY PRIMARY/SECONDARY Tonsillectomy [...] 426 QTC Calculation (Bazett) 446 Calculated P Concord 2 Calculated R Concord 16 Calculated T Concord 35 Impression NORMAL SINUS RHYTHM COMPLETE RIGHT BUNDLE BRANCH BLOCK ABNORMAL ECG Recent Results (from the past 19861 hour(s)) ECHO Collection Time: 03/03/22 4:24 PM [...] 21, 2023 TIME: 9:05 PM PAGER/CONTACT #: [facility] History and physical note* Linda Daley APRN.CNP - 09/22/2023 2:50 PM EDT Images from the original note were not included. 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 PVD (peripheral vascular disease) ([facility]) Patient s/p left arm angiogram, IVUS aorta, subclavian/axillary, brachial, radial arteries angioplasty and stent of left subclavian artery 07/08/23. Completed by Dr. Reynolds at [facility] on Plavix and ASA. History of [...] have a large neck STOP-Bang Score: 3 [id number] Score: Hypertension history: Yes Vascular disease history: Yes [id number] Score: ANESTHESIA FINDINGS: Intubation History: No history [...] clearance for Plavix faxed to Dr. Reynolds ([facility]) Patient s/p left arm angiogram, IVUS [...] He had an OV with Dr Muñiz ([facility]) on 07/14/23 for rectal bleeding and it [...] fevers. Neurological: No history of TIA's, stroke, ENGINEERING RESEARCH MANAGER tumor, impaired sensorium, hemiplegia, paraplegia orquadraplegia. No [...] chest pain, CHF, congenital heart defect, recent HI and murmur/valvular heart disease. GI: See HPI. [...] Coronary atherosclerosis of unspecified type of vessel, platinum or graft Coronary artery disease Diverticulosis of [...] Status PROSTATE SURGERY HX STRABISMUS RECESSION/RESCJ 1 [facility] Strabismus surgery TONSILLECTOMY HX TONSILLECTOMY PRIMARY/SECONDARY <AGE [...] 426 QTC Calculation (Bazett) 446 Calculated P Concord 2 Calculated R Concord 16 Calculated T Concord 35 Impression NORMAL SINUS RHYTHM COMPLETE RIGHT BUNDLE BRANCH BLOCK ABNORMAL ECG Recent Results (from the past 75200 hour(s)) ECHO Collection Time: 03/03/22 4:24 PM [...] 9:05 PM PAGER/CONTACT #: documented in this encounterNorwalk Memorial Hospital07-24-2024 Instructions* Patient Instructions* Linda Daley APRN.CNP - 09/22/2023 1:53 PM EDT Images from the original note were not included. [facility] PATIENT PREOPERATIVE INSTRUCTIONS Ramiro Cheung MD has scheduled you for your procedure at this surgery center: [facility] [place] Scheduling Office: [phone] --[address] [place] [address]. Please read below carefully for your personalized [...] or other anticoagulants without consulting with your equipment installation professional or prescribing physician. - Stop Vitamin E, [...] Procedures: - YOU MUST HAVE A RESPONSIBLE CRUDE OIL DRIVER TAKE YOU HOME. A UPHOLSTERY BUNDLER OR HOME COMPANION CANNOT BE MADE A RESPONSIBLE CRUDE OIL DRIVER. - We recommend that a responsible person [...] call the Wednesday before. Your surgeon s electrical manager will tell you what time to call the office. - If you have not reached the departmental electrical manager by 5 P.M., call [phone] after 5 P.M. the day before your surgery. Please be aware that emergency situations arise, which may delay or change your surgical time. If this happens, we will notify you as soon as possible and regret any inconvenience. If you already have an Advance Directive, please fax a copy to [phone] or email to for it to be [...] your chart that day. documented in this encounterNorwalk Memorial Hospital07-24-2024 History and physical note * Ramiro [...] He had an OV with Dr Muñiz ([facility]) on 07/14/23 for rectal bleeding and it [...] 07/14/[address] Muñiz ([facility]) - Recommendation is to identify the source of your rectal bleeding - Follow-up with Urology to evaluate for a fistula connection to the urethra - Further surgical intervention is recommended to be pursued with Dr. Cheung or through the [facility] given the complexity of your case. Further work-up prior to surgery should be performed through the [facility] as any further surgical intervention would [...] Data Reviewed: Tests & Documents [facility]: [facility] I have independently interpreted: CT Abdomen, [...] mortality and/or complications of treatment plan: low [facility]07-[facility] History and physical note* Ramiro Cheung [...] He had an OV with Dr Muñiz ([facility]) on 07/14/23 for rectal bleeding and it [...] 07/14/[address] Muñiz ([facility]) - Recommendation is to identify the source of your rectal bleeding - Follow-up with Urology to evaluate for a fistula connection to the urethra - Further surgical intervention is recommended to be pursued with Dr. Cheung or through the [facility] given the complexity of your case. Further work-up prior to surgery should be performed through the [facility] as any further surgical intervention would [...] Data Reviewed: Tests & Documents Reviewed/ordered: [facility] I have independently interpreted: CT Abdomen, [...] of treatment plan: low documented in this encounterNorwalk Memorial Hospital06-11-2024 Miscellaneous Notes* Telephone Encounter - Jenna Sevilla LPN - 08/10/2023 12:17 PM EDT Forms were signed and faxed on 08/03/23. Patient aware, states received call from [facility] stating order was on its way to patient. Jenna Sevilla LPN * Telephone Encounter - Katy Faust MD - 08/09/2023 12:50 PM EDT Verify forms were signed and faxed then let patient know * Telephone Encounter - Jenna Sevilla LPN - 08/03/2023 1:51 PM EDT Forms received from [facility], patient updated via [employer] and forms forwarded to PCP. Jenna Sevilla LPN documented in this encounterNorwalk Memorial Hospital06-11-2024 Telephone encounter Note * Telephone Encounter - Jenna Sevilla LPN - 08/10/2023 12:17 PM EDT Forms were signed and faxed on 08/03/23. Patient aware, states received call from [facility] stating order was on its way to patient. Jenna Sevilla LPN [facility]06-10-20[facility] Telephone encounter Note* Telephone Encounter - Katy Faust MD - 08/09/2023 12:50 PM EDT Verify forms were signed and faxed then let patient know [facility]06-04-[facility] Telephone encounter Note* Telephone Encounter - Jenna Sevilla LPN - 08/03/2023 1:51 PM EDT Forms received from [facility], patient updated via [employer] and forms forwarded to PCP. Jenna Sevilla LPN [facility]05-31-2024 Telephone encounter Note* Telephone Encounter - Aslhyn Sullivan RN - 07/30/2023 4:09 PM EDT Holter Scanning Technician spoke to pt and procedure on 09/30/23 and routing on 09/22/23 is agreeable. [facility]05-31-20[facility] Miscellaneous Notes* Telephone Encounter - Ashlyn Sullivan RN - 07/30/2023 4:09 PM EDT Holter Scanning Technician spoke to pt and procedure on 09/30/23 and routing on 09/22/23 is agreeable. * Telephone Encounter - Kateryna Macedo - 07/30/2023 3:06 PM EDT Jai Luna accepts 09/14 preop but 09/22 surgery is not a good date. documented in this encounterNorwalk Memorial Hospital05-31-2024 Telephone encounter Note * Telephone Encounter - Kateryna Macedo - 07/30/2023 3:06 PM EDT Jai Luna accepts 09/14 preop but 09/22 surgery is not a good date. [facility]05-[facility] Telephone encounter Note* Telephone Encounter - Ashlyn Sullivan RN - 07/30/2023 2:06 PM EDT Holter Scanning Technician called pt and left a VM offered 09/22 for EUA and flex sig and route on 09/14 and get his MRI rectum that day as well. [facility]05-[facility] Miscellaneous Notes* Telephone Encounter - Ashlyn Sullivan RN - 07/30/2023 2:06 PM EDT Holter Scanning Technician called pt and left a VM offered 09/22 for EUA and flex sig and route on 09/14 and get his MRI rectum that day as well. documented in this encounterNorwalk Memorial Hospital05-29-2024 History of Present illness Narrative* Ramiro Cheung MD - 07/28/2023 4:45 PM EDT COLORECTAL SURGERY VIRTUAL VISIT FOLLOW UP I have communicated my name and active licensure. The patient's identity and physical location wereverified at the time of this visit. Either the patient or their legal lead generation representative has been informed of the risks [...] He had an OV with Dr Muñiz ([facility]) on 07/14/23 for rectal bleeding and it was recommended that he see Dr Cheung again to assess as to the source of the bleeding. Hx: rectal CA, stricture at anastomosis site 07/14/[address] Muñiz ([facility]) - Recommendation is to identify the source of your rectal bleeding - Follow-up with Urology to evaluate for a fistula connection to the urethra - Further surgical intervention is recommended to be pursued with Dr. Cheung or through the [facility] given the complexity of your case. Further work-up prior to surgery should be performed through the [facility] as any further surgical intervention would [...] Procedures / Tests: Colonoscopy, Flexible Sigmoidoscopy [facility] I have independently interpreted: n/a I have discussed Jai Luna's treatment plan and/or results with patient. Treatment plan: EUA in the OR with flexible sigmoidoscopy I Dutch Cheung MD Risk of morbidity, mortality and/or complications of treatment plan: aníbal I spent a total of 35 minutes on the date of the service which included preparing to see the patient and [id number] patient care. documented in this encounterNorwalk Memorial Hospital05-15-2024 History of Present illness Narrative* Sabrina [...] friable, bleeding mucosa Exam chaperoned by female school bus driver/teacher assistant. ASSESSMENT/PLAN: Diagnosis Plan 1. Rectal bleeding [...] further work-up/surgical intervention . Sabrina Muñiz [place] [facility] [place] [address], [address] [place], [place] [address] p [phone] f [phone] * Belkis Baptiste RN - 07/14/2023 1:30 [...] pursued with Dr. Cheung or through the [facility] given the complexity of your case. Further work-up prior to surgery should be performed through the [facility] as any further surgical intervention would be recommended through this institution. documented in this [facility]04-15-2024 SRIDEVI Palacios MA Caller: Unspecified (Today, 8:32 AM) Please review [employer] BOX COVERER HAND Referral scanned to media today.[facility] 06-14-2023 History of Present illness Narrative* Andria [...] PATIENT PRESENTS WITH AN IMPLANTABLE OR ATTACHED CUFF KNITTER: No RADIOLOGY DEPARTMENT: General X-ray: Exam(s) Completed: Upper Extremity X- Ray(s): Shoulder, AP / TRUE AP / AXILLARY left PERIPHERAL IV DATA: Not applicable SIGNED BY: RT Claudia(R) June 14, 2023 8:36 AM documented in this encounterNorwalk Memorial Hospital04-15-2024 History of Present illness Narrative* Michael Christian MD - 06/14/2023 8:52 AM EDT Michael Christian MD Department of Orthopaedics Orthopaedics [address] [place] [id number] Dept: [phone] Dept June 14, 2023 CHIEF COMPLAINT: New [...] distribution IMAGING: IMPRESSION: Rotator cuff calcific tendinosis Manager Metal: PSCB Transcribe Date/Time: Jun 16 2023 4:30P [...] Coronary atherosclerosis of unspecified type of vessel, platinum or graft Coronary artery disease Diverticulosis of [...] Status PROSTATE SURGERY HX STRABISMUS RECESSION/RESCJ 1 [facility] Strabismus surgery TONSILLECTOMY HX TONSILLECTOMY PRIMARY/SECONDARY <AGE [...] mouth daily at bedtime. For cholesterol per [facility]. No current facility-administered medications for this visit. Allergies: Cat Dander, Clindamycin, and Codeine ROS: General (negative for fatigue, malaise, weight loss/gain) HEENT (negative for headache, earache, recent vision changes, sinus pain, sore throat) Respiratory (no recent shortness of breath, hemoptysis) CV (negative for chest tightness, palpitations) Musculoskeletal (see HPI) Psych (no depression, anxiety) Michael Christian MD documented in this encounterNorwalk Memorial Hospital04-01-2024 History of Present illness Narrative* Mary Anne Alejandro APRN.CUP MACHINE OPERATOR - 05/31/2023 9:59 AM EDT This note [...] same States that he has visited a pin puller in the past for same Was hoping you would remove it for me Endorses he is currently being worked up for PVD left lower leg The history is provided by the patient. No tea taster was used. Pain (foot) Pain location: left [...] Coronary atherosclerosis of unspecified type of vessel, platinum or graft Coronary artery disease Diverticulosis of [...] Status PROSTATE SURGERY HX STRABISMUS RECESSION/RESCJ 1 [facility] [place] Strabismus surgery TONSILLECTOMY HX [...] appt) Discussed red flags Mary Anne Alejandro APRN.CUP MACHINE OPERATOR documented in this encounterNorwalk Memorial Hospital02-27-2024 History of Present illness Narrative* Bhavna Villatoro RN - 04/27/2023 4:11 PM EST pcp agrees with information * Bhavna Villatoro RN - 04/27/2023 2:21 PM EST patient had inr completed at [facility] patients inr is 2.1 (patients inr [...] for follow up INR. documented in this encounterNorwalk Memorial Hospital02-21-2024 Miscellaneous Notes* Telephone Encounter - Jie Abdi MA - 04/21/2023 10:00 AM EST Consult pended, please file if agreeable. Jie Abdi MA documented in this encounterNorwalk Memorial Hospital02-13-2024 History of Present illness Narrative* Bhavna Villatoro RN - 04/13/2023 3:57 PM EST pcp agrees with information * Bhavna Villatoro RN - 04/13/2023 2:02 PM EST patient had inr completed at [facility] patients inr is 1.9 (patients [...] for follow up INR. documented in this encounterNorwalk Memorial Hospital11-01-2023 Miscellaneous Notes* Telephone Encounter - Elly [...] you. Elly Ash LPN. documented in this encounterNorwalk Memorial Hospital10-31-2023 History of Present illness Narrative* Bhavna Villatoro RN - 12/29/2022 6:50 PM EDT pcp agrees with information * Bhavna Villatoro RN - 12/29/2022 2:39 PM EDT patient had inr completed at [facility] patients inr is 2.7 (patients inr [...] follow u p INR. documented in this encounterNorwalk Memorial Hospital10-17-2023 History of Present illness Narrative* Bhavna Villatoro RN - 12/15/2022 5:51 PM EDT pcp agrees with information * Bhavna Villatoro RN - 12/15/2022 3:00 PM EDT patient had inr completed at [facility] patients inr is 2.0 (patients inr [...] medication 2 weeks ago documented in this encounterNorwalk Memorial Hospital10-05-2023 Surgical operation note* Brief Op Note - Justin William MD - 12/03/2022 11:44 AM EDT BRIEF OPERATIVE / PROCEDURE NOTE LOG ID: [id number] SURGERY/PROCEDURE DATE: 12/03/2022 INCISION/PROCEDURE START TIME: 11:24 AM INCISION CLOSE/PROCEDURE END TIME: 11:37 AM SURGEON(S)/PROCEDURALIST(S) AND SPECIAL EQUIPMENT TECHNICIAN(S): Surgeon(s) and Role: * Justin William MD [...] 2022 TIME: 11:45 AM documented in this encounterNorwalk Memorial Hospital10-05-2023 History and physical note * Justin [...] Coronary atherosclerosis of unspecified type of vessel, platinum or graft Coronary artery disease Diverticulosis of [...] PROSTATE SURGERY HX STRABISMUS RECESSION/RESCJ [facility] [place] Strabismus surgery TONSILLECTOMY HX [...] mouth daily at bedtime. For cholesterol per [facility]. coenzyme Q10 (COENZYME Q-10) 100 [...] 2022 TIME: 11:15 AM documented in this encounterNorwalk Memorial Hospital09-29-2023 Miscellaneous Notes* Telephone Encounter - Rebecca Yeh RN - 11/27/2022 2:42 PM EDT You are scheduled for a IVC Filter Removal, On 12/03/2022. You are to arrive at 0900 am for a 1030 procedure time and Report to [facility]: Entrance A, Elevators to first floor, [...] of 1.5 or less forday of procedure. Casino Runner/Transportation: How will you be arriving for your procedure? Private car. You will need a responsible adult to accompany you to and from the procedure. Your pile driver operator is required to stay with you until you are taken into the procedure room. Please call with any questions [phone] opt 2 to speak with the Radiology Nurses documented in this encounterNorwalk Memorial Hospital09-19-2023 History of Present illness Narrative* Bhavna Villatoro RN - 11/17/2022 4:32 PM EDT pcp agrees with information * Bhavna Villatoro RN - 11/17/2022 2:28 PM EDT patient had inr completed at [facility] patients inr is 2.2 (patients inr [...] follow u p INR. documented in this encounterNorwalk Memorial Hospital09-18-2023 Miscellaneous Notes* Telephone Encounter - Mady Campbell RN - 11/16/2022 4:19 PM EDT WO nursing returned patient message regarding issues with pouch lifting and "hole" under stoma. Left Message: No spoke directly with patient Information/Recommendations provided regarding Patient had a few issues. He states pouching system (Coloplast Jennings soft convex drainable) has been working well except for past few weeks. It has been lifting and difficult to get to stick. Patient changed yesterday and so far it is working well. He did not want to come in to see outpatient [facility] nursing at [facility] neither did he want to discuss changing anything at all because it is "so far working well this time". 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 Biggest conversation centered around his inability to cancel his vascular IR appointment and reschedule. He has been "getting the run around for days". This [facility] nurse attempted to find out how he would do this without luck. Time spent: 30 minutes SCOTTIE Hernandez, RN, CWOCN documented in this encounterNorwalk Memorial Hospital09-05-2023 History of Present illness Narrative* Bhavna [...] PM EDT patient had inr completed at [facility] patients inr is 1.8 (patients inr [...] greens over the week documented in this encounterNorwalk Memorial Hospital09-05-2023 Miscellaneous Notes* Telephone Encounter - Maddison Kohler RN - 11/03/2022 1:42 PM EDT patient is scheduled thank you! * Telephone Encounter - Maddison Kohler RN - 11/03/2022 1:02 PM EDT left a message on home phone and spoke with the patient's ( patient is with his ) patient needs Carotid US patient in agreement message routed to [facility] to assist with scheduling patient lives in [place] prefers imaging closer to his home if possible thank you documented in this encounterNorwalk Memorial Hospital09-05-2023 Instructions* Patient Instructions* Terry Cifuentes MD [...] PRIOR TO YOUR VISIT. documented in this encounterNorwalk Memorial Hospital09-05-2023 History of Present illness Narrative* Terry Cifuentes MD - 11/03/2022 10:00 AM EDT Images from the original note were not included. [facility] [place] [facility] Department of Cardiovascular Medicine SECTION [...] was resumed. 07/20/2022 underwent LLE VDU at [facility]: New symptoms or concerns: walking is [...] Coronary atherosclerosis of unspecified type of vessel, platinum or graft Coronary artery disease Diverticulosis of [...] PROSTATE SURGERY HX STRABISMUS [facility]ESSION[facility]CJ [facility] Strabismus surgery TONSILLECTOMY HX [...] the proximal calf. Technologist: Isis Flynn RVT, [facility] Ordering physician: YESSICA TINOCO Interpreting physician: [...] Abs Lymph 1.00 - 4.00 k/uL 1.24 [place]% % 14.6 Abs [place] <0.87 k/uL 0.78 Eosin% % 3.7 Abs [...] REMOVAL, COMPRESSION STOCKINGS (Z79.01) Current use of genetic counselor anticoagulation (R09.89) Bruit of right carotid artery [...] patient was found acute DVT 06/2021 (at [facility], no access to imaging), following which [...] anticoagulation Request venous duplex US imaging from [facility] (06/2022) Carotid duplex US to evaluate [...] CC: Katy Faust MD documented in this encounterNorwalk Memorial Hospital08-24-2023 Miscellaneous Notes* Telephone Encounter - Yessica Tinoco APRN.CNP - 10/22/2022 4:41 PM EDT INTERVENTIONAL RADIOLOGY PATIENT APPOINTMENT REQUEST October 22, 2022 Jai Luna [id number] Request: Schedule Requestor: Yessica Tinoco APRN.CNP Ref.Physician: [...] Location of Procedure: NA documented in this encounterNorwalk Memorial Hospital08-02-2023 Miscellaneous Notes* Telephone Encounter - Yessica [...] Sent a message to the patient via [employer] to schedule US DVT and have follow up appt with vascular medicine. Yessica Tinoco APRN.CHELSIE documented in this encounterNorwalk Memorial Hospital07-10-2023 History of Present illness Narrative* Bhavna Villatoro RN - 09/07/2022 4:05 PM EDT pcp agrees with information * Bhavna Villatoro RN - 09/07/2022 11:57 AM EDT patient had inr completed at [facility] patients inr is 2.0 (patients inr [...] for follow up INR. documented in this encounterNorwalk Memorial Hospital06-27-2023 History of Present illness Narrative* Bhavna Villatoro RN - 08/25/2022 5:17 PM EDT pcp agrees with information * Bhavna Villatoro RN - 08/25/2022 9:45 AM EDT patient had inr completed at [facility] patients inr is 1.8 (patients inr [...] in diet last week documented in this encounterNorwalk Memorial Hospital06-13-2023 History of Present illness Narrative* Bhavna Villatoro RN - 08/11/2022 4:30 PM EDT pcp agrees with information * Bhavna Villatoro RN - 08/11/2022 2:22 PM EDT patient had inr completed at [facility] patients inr is 2.5 (patients inr [...] reading since dose change documented in this encounterNorwalk Memorial Hospital06-05-2023 History of Present illness Narrative* Bhavna Villatoro RN - 08/03/2022 5:03 PM EDT pcp agrees with recommendation PATIENT NOTIFIED OF INFORMATION * Bhavna Villatoro RN - 08/03/2022 12:17 PM EDT patient had inr completed at [facility] patients inr is 3.2 (patients inr [...] up inr on 08/11/22 documented in this encounterNorwalk Memorial Hospital06-05-2023 Miscellaneous Notes* Telephone Encounter - Bhavna Villatoro RN - 08/03/2022 12:24 PM EDT Patient is a new patient to the [facility] and we are needing new standing orders for testing. Orders have been pended for review and file if able. CC only needs called if orders cannot be filed. Thanks documented in this encounterNorwalk Memorial Hospital05-30-2023 Miscellaneous Notes* Telephone Encounter - Norm [...] rechecked? Cony Raygoza RN documented in this encounterNorwalk Memorial Hospital05-10-2023 Miscellaneous Notes* Telephone Encounter - Ginger Ingram LPN - 07/08/2022 4:37 PM EDT Phoned Vicki at [facility] and went over notes from Norm Parker BOX COVERER HAND with understanding. * Telephone Encounter - Norm Parker APRN.CNP - 07/08/2022 3:33 PM EDT Ok for the 2 times weekly. * Telephone Encounter - Ginger Ingram LPN - 07/08/2022 3:28 PM EDT Vicki from [facility] calling said with patient office notes from yesterday the BOX COVERER HAND says on average patient changes ostomy bag 1-2 times weekly but depends on the week up to 4 times a week. Theycan only give the patient ostomy supplies for 2 times weekly, unless the office notes are changed to say he changes ostomy bag 4 times weekly. Please advise documented in this encounterNorwalk Memorial Hospital05-08-2023 Miscellaneous Notes* Telephone Encounter - Coral Charles RN - 07/06/2022 3:53 PM EDT Patient has appointment with Norm on 07/07 and will discuss with her then. Coral Charles RN documented in this encounterNorwalk Memorial Hospital03-28-2023 Miscellaneous Notes* Telephone Encounter - Jenna [...] into the office today and dropped off [facility] Juror excuse form. Patient has filled it but needs letter signed by primary excusing patient from jury duty. Patient states he was dx with cancer and recently had procedure done. He doesn't feel like he could sit through court due to discomfort and he is having to go to the bedroom frequently. Please mail form and letter back to [facility] Jury Commission with enclosed envelope. Form is at nurse's pod documented in this encounterNorwalk Memorial Hospital03-22-2023 History of Present illness Narrative* Ramiro [...] done yet. His case was presented to [facility] where it was recommended to proceed with danielle cut biopsy, which was done and revealed Invasive moderately differentiated squamous cell carcinoma. He completed Modified Charlene chemoradiation on Jul 21 2021, completed restaging in August, and was presented to [facility]. It was recommended that he follow up in three months to assess response to determine if he can proceed with watch and wait or should have surgery. He had this follow up on 12.10.2021 and was presented to [facility] on 12.17.2021 where it was [...] PT called and expecting a call from [facility]. After initial visit at [facility] likely will get the treatment in [place] and come back for surgery if indicated. [...] of treatment plan: high documented in this encounterNorwalk Memorial Hospital03-22-2023 History of Present illness Narrative* Mary Anne Pierre RN - 05/20/2022 3:03 PM EDT ET/WOCN Nursing Consult Topic: ET/WOCN Consultation Note ET Outcome: Patient seen in the outpatient clinic accompanied to see Dr. Cheung and [facility] nursing for discussion about stoma closure. No [...] Pierre RN, BSN, CWOCN documented in this encounterNorwalk Memorial Hospital03-22-2023 Instructions* Patient Instructions* Terry Balderrama MD - 05/20/2022 12:23 PM EDT PLEASE PLAN TO HOLD ELIQUIS FOR 4 DAYS PRIOR TO SURGERY. SCHEDULE ULTRASOUND OF THE LEGS IN THE [facility] OF [facility] THE RESULTS OF THE ULTRASOUND WILL DETERMINE THE BLOOD THINNER MANAGEMENT AFTER DISCHARGE. THIS IS TO BE DETERMINED. NO PLANS TO REMOVE THE FILTER UNTIL AFTER THE SURGERY. I WILL ADVISE FURTHER. PLAN TO SCHEDULE 6 WEEKS FOLLOW UP AFTER YOUR SURGERY WITH ME documented in this encounterNorwalk Memorial Hospital03-22-2023 History of Present illness Narrative* Terry Balderrama MD - 05/20/2022 12:09 PM EDT Images from the original note were not included. [facility] Department of Cardiovascular Medicine SECTION [...] Abs Lymph 1.00 - 4.00 k/uL 1.44 [place]% % 9.4 Abs [place] <0.87 k/uL 0.82 Eosin% % 1.3 Abs [...] MD Ramiro Feliciano MD documented in this encounterNorwalk Memorial Hospital03-22-2023 Instructions* Patient Instructions* Abundio Prado APRN.ZINA HOLGUIN - 05/20/2022 10:09 AM EDT PATIENT PREOPERATIVE INSTRUCTIONS Ramiro Cheung MD has scheduled you for your procedure at this surgery center: [facility] [place] Scheduling Office: [phone] --[address] [place] [address]. Please read below carefully for your personalized [...] Procedures: - YOU MUST HAVE A RESPONSIBLE CRUDE OIL DRIVER TAKE YOU HOME. A UPHOLSTERY BUNDLER OR HOME COMPANION CANNOT BE MADE A RESPONSIBLE CRUDE OIL DRIVER. - We recommend that a responsible person [...] call the Wednesday before. Your surgeon s electrical manager will tell you what time to call the office. - If you have not reached the departmental electrical manager by 5 P.M., call [phone] after 5 P.M. the day before your surgery. Please be aware that emergency situations arise, which may delay or change your surgical time. If this happens, we will notify you as soon as possible and regret any inconvenience. If you already have an Advance Directive, please fax a copy to [phone] or email to for it to be [...] DORIS Prado APRN.CNP, DNP documented in this encounterNorwalk Memorial Hospital03-22-2023 History and physical note * Abundio [...] Coronary atherosclerosis of unspecified type of vessel, platinum or graft Coronary artery disease Diverticulosis of [...] Status PROSTATE SURGERY HX STRABISMUS RECESSION/RESCJ 1 [facility] Strabismus surgery TONSILLECTOMY HX TONSILLECTOMY PRIMARY/SECONDARY <AGE [...] aid. Neuro: No history of TIA's, stroke, ENGINEERING RESEARCH MANAGER tumor, impaired sensorium, hemiplegia, paraplegia or quadraplegia. No neurological symptoms or problems. Respiratory: No history of current cough or dyspnea, or pneumonia in the past 6 weeks. No history of respiratory/pulmonary symptoms or problems. 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 -Follows with vascular medicine here at [facility] - scheduled to see vascular, Dr. Terry [...] NORMAL ECG Confirmed by WINTER BROOKS MD ([id number]) on 03/15/2022 8:20:19 PM Most recent Echo [...] 2022 TIME: 9:53 AM documented in this encounterNorwalk Memorial Hospital03-22-2023 History of Present illness Narrative* Jie [...] 20, 2022 8:51 AM documented in this encounterNorwalk Memorial Hospital03-20-2023 History of Past illness Narrative* Problem [...] of this encounter (statuses as of 07/09/2022) [facility]03-[facility] History of Past illness Narrative* Problem [...] of this encounter (statuses as of 07/28/2022) [facility]03-20-[facility] History of Past illness Narrative* Problem [...] of this encounter (statuses as of 08/04/2022) [facility]03-[facility] History of Past illness Narrative* Problem [...] of this encounter (statuses as of 08/12/2022) [facility]03-[facility] History of Past illness Narrative* Problem [...] of this encounter (statuses as of 08/17/2022) [facility]03-20-[facility] History of Past illness Narrative* Problem [...] of this encounter (statuses as of 08/19/2022) [facility]03-[facility] History of Past illness Narrative* Problem [...] of this encounter (statuses as of 08/26/2022) [facility]03-[facility] History of Past illness Narrative* Problem [...] of this encounter (statuses as of 09/08/2022) [facility]03-[facility] History of Past illness Narrative* Problem [...] of this encounter (statuses as of 09/30/2022) [facility]03-[facility] of Past illness Narrative* Problem [...] of this encounter (statuses as of 09/30/2022) [facility] of Past illness Narrative* Problem [...] of this encounter (statuses as of 10/02/2022) [facility] of Past illness Narrative* Problem [...] of this encounter (statuses as of 10/21/2022) [facility] of Past illness Narrative* Problem [...] of this encounter (statuses as of 11/04/2022) [facility] of Past illness Narrative* Problem [...] of this encounter (statuses as of 11/04/2022) [facility]03-[facility] of Past illness Narrative* Problem [...] of this encounter (statuses as of 11/04/2022) [facility] of Past illness Narrative* Problem [...] of this encounter (statuses as of 11/05/2022) [facility] of Past illness Narrative* Problem [...] of this encounter (statuses as of 11/16/2022) [facility] of Past illness Narrative* Problem [...] of this encounter (statuses as of 11/17/2022) [facility] of Past illness Narrative* Problem [...] of this encounter (statuses as of 11/18/2022) [facility] of Past illness Narrative* Problem [...] of this encounter (statuses as of 11/28/2022) [facility] of Past illness Narrative* Problem [...] of this encounter (statuses as of 12/05/2022) [facility] of Past illness Narrative* Problem [...] of this encounter (statuses as of 12/16/2022) [facility] of Past illness Narrative* Problem [...] of this encounter (statuses as of 12/30/2022) [facility] of Past illness Narrative* Problem [...] of this encounter (statuses as of 04/13/2023) [facility] of Past illness Narrative* Problem [...] of this encounter (statuses as of 04/23/2023) [facility] of Past illness Narrative* Problem [...] of this encounter (statuses as of 04/28/2023) [facility] of Past illness Narrative* Problem [...] of this encounter (statuses as of 05/31/2023) [facility] of Past illness Narrative* Problem [...] of this encounter (statuses as of 06/11/2023) [facility] of Past illness Narrative* Problem [...] of this encounter (statuses as of 06/15/2023) [facility]03-01-2023 Miscellaneous Notes* Telephone Encounter - Liz Xavier APRN.CNP - 04/29/2022 5:15 PM EST Telephone Encounter~ Person of Contact: Pt Reason for Call: discuss IVC Filter appointment Outcome of Call: Pt will reschedule his IR IVC [place] removal consult until after follow up &surgery. Pt will complete follow up with Vascular Medicine 05/20/22. Pt recently switched from Lovenox to Eliquis. staff contacted with plan of care. Planned colorectal surgery 06/04/22 Contact Number Given: Yes Number of minutes: A total of (10) minutes was spent on this encounter Liz Xavier APRN.CNP April 29, 2022 documented in this encounterNorwalk Memorial Hospital02-24-2023 Miscellaneous Notes* Telephone Encounter - Leandro Cruz RN - 04/24/2022 2:[address] Ramiro Cheung; This message is to inform you that your patient has been discharged from skilled home health services as of 04/23/22. Goals met. Thank you for choosing [facility] for [facility] to serve your patient's home careneeds. Leandro Cruz RN documented in this encounterNorwalk Memorial Hospital02-23-2023 Miscellaneous Notes* SN Agency DC - Doris Rivera RN - 04/23/2022 11:35 AM EST SITUATION: Intermediate agency discharge visit completed today. spouse also [...] performed. Specific SN discharge instructions: Access the [facility] ostomy and wound department as a [...] for additional medical questions/concerns. documented in this encounterNorwalk Memorial Hospital02-22-2023 History of Present illness Narrative* Katy Faust MD - 04/22/2022 4:48 PM EST This note was created using MongoDBriter. Subjective Jai Luna is a 72 year [...] Coronary atherosclerosis of unspecified type of vessel, platinum or graft Coronary artery disease Diverticulosis of colon (without mention of hemorrhage) Dyslipidemia 01/16/2013 History of transfusion Hypertension Rectal malignant neoplasm (HCC) 05/29/2021 Rectal mass Current Outpatient Medications Medication Sig apixaban (ELIQUIS) 5 mg tab(s) Take 1 tablet by mouth twice daily. atorvastatin (LIPITOR) 40 mg tablet Take 1 tablet by mouth daily at bedtime. For cholesterol per [facility]. coenzyme Q10 (COENZYME Q-10) 100 [...] PROSTATE SURGERY HX [facility]ABISMUS [facility]ESSION[facility] [place] Strabismus surgery TONSILLECTOMY HX [...] coronary artery bypass graft Z95.1 follows with [facility] 6. Dyslipidemia E78.5 On Lipitor [...] indicated. Katy Faust MD documented in this encounterNorwalk Memorial Hospital02-22-2023 Miscellaneous Notes* PT DISCHARGE - Estefany [...] summary for intervention/education details. documented in this encounterNorwalk Memorial Hospital02-21-2023 Miscellaneous Notes* PT ROUTINE/REASSESSMENT/RECERT/CASE MGMT - Isela Patrizia, THREAD SEPARATOR - 04/21/2022 11:05 AM EST SITUATION: spouse [...] summary for intervention/education details. documented in this encounterNorwalk Memorial Hospital02-17-2023 Miscellaneous Notes* PT ROUTINE/REASSESSMENT/RECERT/CASE MGMT - Isela Acharya PTA - 04/17/2022 11:14 AM EST SITUATION: only patient present during today's visit. patient reports the following since the last homecare visit: medications/allergies--no changes, no fall. patient reports he has had low BP today. [facility] nurse called today during her visit [...] summary for intervention/education details. documented in this encounterNorwalk Memorial Hospital02-17-2023 Miscellaneous Notes* CARE COORDINATION - Leandro Cruz RN - 04/17/2022 10:55 AM EST 04/13/22 11:00am SN contacted [facility] for follow up on 04/17/22 regarding the whereabouts of the "drop-ship" order placed on 04/09/22. This SN spoke with "Josh," he investigated with the social work professor and discovered there is low availablility of [...] arrive today via [employer]. documented in this encounterNorwalk Memorial Hospital02-15-2023 Miscellaneous Notes* PT ROUTINE/REASSESSMENT/RECERT/CASE MGMT - [...] summary for intervention/education details. documented in this encounterNorwalk Memorial Hospital02-13-2023 Miscellaneous Notes* Telephone Encounter - Ladan Oviedo - 04/13/2022 12:15 PM EST April 13, 2022 [id number] Patient Name: Jai Luna Contact Information: DERRICK Callejas [facility] Home Care Reason For Call:Patient Update Britta from [facility] Home Care called with an update on the patient. She stated that he is feeling much better, vital signs are stable, can tolerate activity. Patient feels much better than last . Physician:Terry Cifuentes MD documented in this encounterNorwalk Memorial Hospital02-13-2023 Miscellaneous Notes* SN Routine - Britta Mantilla RN - 04/13/2022 11:36 AM EST SITUATION: Intermediate routine visit completed today. spouse also present [...] at end ofcert period. documented in this encounterNorwalk Memorial Hospital2023 Miscellaneous Notes* HH SN Routine - Britta Mantilla RN - 04/09/2022 10:21 AM EST SITUATION: Intermediate routine visit completed today. spouse also present [...] sat, taking deep breaths and recovered. Dr Bladerrama'soffice called back and Dr balderrama feels that [...] demonstration for ostomy care. documented in this encounterNorwalk Memorial Hospital02-08-2023 Miscellaneous Notes* Telephone Encounter - Don [...] Parker APRN.CHELSIE - 04/07/2022 3:36 PM EST oDn, can we send him to [place] lab to have the stat potassium drawn? [...] 3:35PM. Jerilyn Mariscal LPN documented in this encounterNorwalk Memorial Hospital02-07-2023 Miscellaneous Notes* PT ROUTINE/REASSESSMENT/RECERT/CASE MGMT - [...] summary for intervention/education details. documented in this encounterNorwalk Memorial Hospital02-06-2023 History of Present illness Narrative* Norm Parker APRN.CUP MACHINE OPERATOR - 04/06/2022 3:02 PM EST SUBJECTIVE Jai [...] Cheung for his surgeon, Dr. Antoine forhis equipment installation professional (history of prior CABG), and Dr. Lakhani [...] ACTIVE PROBLEM LIST Pulmonary Embolism and Infarction ([facility]) - 03/02/2022 Pulmonary Embolism ([facility]) - 02/13/2022 Hypokalemia - 02/10/2022 Urinary Retention - 2022 Malnutrition of Mild Degree ([facility]) - 02/05/2022 Finesse (Acute Kidney Injury) ([facility]) - 02/03/2022 (Acute) Ileostomy in Place ([facility]) - 01/28/2022 Rectal Cancer ([facility]) - 01/27/2022 Rectal Malignant Neoplasm ([facility]) - 05/29/2021 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 services, let us know if anythingnew comes up or any needs. 2. Malignant neoplasm of colon, unspecified part of colon (HCC) - ICD9: 153.9, ICD10: C18.9 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) - ICD9: V44.2, ICD10: Z93.[address] [facility] on care of this, hopeful [...] medications.. Norm Parker APRN-CHELSIE documented in this encounterNorwalk Memorial Hospital02-06-2023 Miscellaneous Notes* SN Routine - Britta Mantilla RN - 04/06/2022 1:16 PM EST SITUATION: Intermediate routine visit completed today. spouse also present [...] discipline dc next week. documented in this encounterNorwalk Memorial Hospital02-03-2023 Miscellaneous Notes* PT ROUTINE/REASSESSMENT/RECERT/CASE MGMT - [...] summary for intervention/education details. documented in this encounterNorwalk Memorial Hospital02-02-2023 Miscellaneous Notes* SN Routine - Britta Mantilla RN - 04/02/2022 5:01 PM EST SITUATION: Intermediate routine visit completed today. spouse also present [...] am, he had appts for ultrasounds at [facility] today. He is tolerating more activity [...] nursing within 2-3 weeks. documented in this encounterNorwalk Memorial Hospital02-01-2023 Miscellaneous Notes* Telephone Encounter - Smitha Dawson RN - 04/01/2022 8:45 AM EST Called and spoke with patient He can't come off anticoagulant until May Will schedule surgery 06.04.22 and preop 05.20.2022 * Telephone Encounter - Smitha Dawson RN - 04/01/2022 8:29 AM EST Called and spoke with patient He can't come off anticoagulant until May * Telephone Encounter - Kateryna Sandoval [facility] [place] [place] - 03/31/2022 4:15 PM EST [phone] Jai Luna called to schedule surgery. Electronically signed by Katerynaisidro Sandoval [facility] [place] [place] at 03/31/2022 4:16 PM EST documented in this encounterNorwalk Memorial [facility] Miscellaneous Notes* PT ROUTINE/REASSESSMENT/RECERT/CASE MGMT - [...] summary for intervention/education details. documented in this encounterNorwalk [facility] Hospital01-30-[facility]23 Miscellaneous Notes* SN Routine - Britta Mantilla RN - 03/30/2022 2:16 PM EST SITUATION: Intermediate routine visit completed today. spouse also present [...] for ostomy pouch change. documented in this encounterNorwalk [facility] Hospital01-27-2023 Miscellaneous Notes* PT ROUTINE/REASSESSMENT/RECERT/CASE MGMT - Isela Acharya, THREAD SEPARATOR - 03/27/2022 2:05 PM EST SITUATION: spouse [...] summary for intervention/education details. documented in this encounterNorwalk [facility] Hospital01-26-2023 Miscellaneous Notes* SN Routine - Doris Rivera RN - 03/26/2022 11:50 AM EST SITUATION: Intermediate routine visit completed today. spouse also present [...] how did it work? documented in this encounterNorwalk [facility] Hospital01-25-2023 Miscellaneous Notes* PT ROUTINE/REASSESSMENT/RECERT/CASE MGMT - [...] summary for intervention/education details. documented in this encounterNorwalk [facility] Hospital01-24-2023 Miscellaneous Notes* SN Routine - Britta Mantilla RN - 03/24/2022 10:06 AM EST SITUATION: Intermediate routine visit completed today. spouse also present [...] ring. 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 Edema to L leg [...] only assist if needed. documented in this encounterNorwalk Memorial Hospital01-23-2023 History of Present illness Narrative* Isaura Benítez RN - 03/23/2022 2:26 PM EST ET/WOCN Nursing Consult Topic: ET/WOCN Consultation Note Outcome: Patient and spouse in A30 for post-op visit. Current pouching system appropriate but smaller aperture needed. New pattern made. Patient is currently being followed by [facility] and they are assisting him [...] Soft Convex (5/8"-1 16") Cut-to-Fit Drainable Pouch (#79059), 4.2 Coloplast Brava Moldable Ring (#[id number]), elastic barrier strips Wearing time: 3 days [...] Benítez RN, BSN, CWOCN documented in this encounterNorwalk Memorial Hospital01-23-2023 History of Present illness Narrative* Skyla Alex, ANALYTICS INTERN.CUP MACHINE OPERATOR - 03/23/2022 1:30 PM EST COLORECTAL SURGERY [...] mouth daily at bedtime. For cholesterol per [facility]. metoprolol tartrate, short acting, (LOPRESSOR) [...] Anal area with mild erythema, MARIAJOSE deferred Shredder Picker present: Yes, Alycia Nunn Rectal Cancer Tumor Board Post-Operative Discussion Note Date of conference: 02/11/2022 Date of surgery: 01/27/2022 Pre-treatment clinical stage: T3dN+ Pre-treatment CEA level: CEA (ng/mL) Date Value 06/09/2021 2.2 Neoadjuvant therapy prior to surgery: Yes: Other: CHARLENE protocol Neoadjuvant therapy date of completion: 07/21/2021 He completed Modified Charlene chemoradiation on July 21, completed restaging in August, and was [facility] to [facility]. It was recommended that he follow [...] oncology for surveillance Will send message to [place] to coordinate tentative pending preops and clearance by Dr. Cheung- will need to coordinate with vascular not sure when he can stop blood thinner Per [facility] medicine Dr. Balderrama: PLEASE LET ME [...] BLEEDING Skyla Alex APRN.CNP documented in this encounterNorwalk Memorial Hospital01-23-2023 Instructions* Patient Instructions* Terry Balderrama MD [...] CONTINUE MONITORING FOR BLEEDING documented in this encounterNorwalk Memorial Hospital01-23-2023 History of Present illness Narrative* Terry Balderrama MD - 03/23/2022 11:00 AM EST Images from the original note were not included. [facility] [place] [facility] Department of Cardiovascular Medicine SECTION [...] Coronary atherosclerosis of unspecified type of vessel, platinum or graft Coronary artery disease Diverticulosis of [...] PROSTATE SURGERY HX STRABISMUS RECESSION/RESCJ 1 [facility] [place] Strabismus surgery TONSILLECTOMY HX TONSILLECTOMY PRIMARY/SECONDARY <AGE 12 Tonsillectomy VASCULAR SURGERY PROCEDURE Allergies: Clindamycin and Codeine CURRENT MEDICATIONS: Current Outpatient Medications Medication Sig atorvastatin (LIPITOR) 40 mg tablet Take 1 tablet by mouth daily at bedtime. For cholesterol per [facility]. enoxaparin (LOVENOX) 80 mg/0.8 mL [...] PRN TERRY BALDERRAMA MD documented in this encounterNorwalk Memorial Hospital01-19-2023 Miscellaneous Notes* PT ROUTINE/REASSESSMENT/RECERT/CASE MGMT - [...] summary for intervention/education details. documented in this encounterNorwalk Memorial Hospital01-19-2023 Miscellaneous Notes* SN Routine - Britta Mantilla RN - 03/19/2022 9:03 AM EST SITUATION: Intermediate routine visit completed today. spouse also present [...] ostomy care, CP assessment. documented in this encounterNorwalk Memorial Hospital01-18-2023 History of Present illness Narrative* Russ [...] well. Russ Monteiro MD documented in this encounterNorwalk Memorial Hospital01-18-2023 Instructions* Patient Instructions* Russ Monteiro MD - 03/18/2022 12:00 PM EST BLOOD WORK TODAY. documented in this encounterNorwalk Memorial Hospital01-15-2023 Miscellaneous Notes* SN Routine - Britta Mantilla RN - 03/15/2022 2:31 PM EST SITUATION: Intermediate routine visit completed today. spouse also present [...] pouch change, CP assessment. documented in this encounterNorwalk Memorial Hospital01-14-2023 Miscellaneous Notes* CARE COORDINATION - Savanna Galan RN - 03/14/2022 12:33 PM EST see case comm documented in this encounterNorwalk Memorial Hospital01-12-2023 Miscellaneous Notes* Telephone Encounter - Leandro Cruz RN - 03/12/2022 12:[address]I Dutch Cheung; Patient was not independent with ostomy care prior to being readmitted to hospital on 03/02/22-03/10/22. He is being seen today per therapy for a resumption of home health care. He will also need a referral for assisted to continue ostomy instruction and care. Please have your office contact [facility] to place the SN EVAL order. We would like to be able to see him by tomorrow if possible. Thank you in advance for your review of this request. Leandro Cruz RN-[facility]. documented in this encounterNorwalk Memorial Hospital01-12-2023 Miscellaneous Notes* PT SOC/NORRIS/FOLLOW UP/OTHER - [...] Precautions: no lifting ASSESSMENT: [facility]. Reviewed and explained [...] SNfor post ostomy care . T/c to Nicker Bhavna Cruz who obtained nursing orders See intervention summary for intervention/education details. documented in this encounterNorwalk Memorial Hospital01-05-2023 Miscellaneous Notes* Telephone Encounter - Leandro Cruz RN - 03/05/2022 9:[address] Ramiro Cheung; This message is to alert you that your home health patient was admitted to [facility] on 03/02/22 for bilateral PE. All home health services have been placed on HOLD at this time. Leandro Cruz RN-[facility]. documented in this encounterNorwalk Memorial Hospital01-04-2023 Miscellaneous Notes* Telephone Encounter - Tejal Hawkins LPN - 03/04/2022 10:24 AM EST Welcome Home Call: a. Date and Time: 10:24 AM 03/04/2022 b. Contact name/relationship: Marilu (Spouse) c. Have you been active with any Home Care company in the last 60 days(such as help with bathing, filling medications, checking your blood pressure) ? Yes, active with [facility]. d. Was patient given Flu shot this Season (After Oct,): No: na e. [facility] will be providing your care, are you agreeable to starting these services? yes (yes or no) f. Do you have any upcoming appointments in the next few days, or restrictions to your schedule? no g. Caregiver: Marilu (Spouse) h. Confirmed Visited Location and preferred #: [phone] Please keep our your medications both over the counter and prescribed out for the home care to review, your hospital discharge instructions and write down any questions you might have. In order to maintain a safe environment for our caregivers, [facility] requires anyanimals or weapons present in the home be located in a secured location. Our clinicians will call you the night before or the morning of the appointment. Their # may come up restricted but they'll leave a VM for you. In case you have any questions or concerns in the meantime, our # is [phone], option 5 Thank you for your time and have a great day. Tejal Hawkins LPN documented in this encounterNorwalk Memorial Hospital01-04-2023 Miscellaneous Notes* Telephone Encounter - Tejal Hawkins LPN - 03/04/2022 10:22 AM EST Jermaine MENDEZ, PHD Please advise if you are agreeable to signing and following for [facility] services? Our Clinicians will be sending the Plan of Care to you for review and approval. They will reach out for any appropriate orders required to provide home care services for the patient. We are not able to initiate HHC services without a following provider. Home care clinicians may also obtain orders from [facility] Thank you and we [...] care clinicians may also obtain orders from [facility] Thank you and we would be happy to answer any questions. Holly Rivera LPN Central Admissions Intake Nurse 03/03/2022 11:53 AM documented in this encounterNorwalk Memorial Hospital01-03-2023 Miscellaneous Notes* HH CARE COORDINATION - Leandro Cruz RN - 03/03/2022 8:30 AM EST SN contacted Dr.I Dutch Cheung on 03/05/21 for the following: patient has been [facility] 03/02/22 for bilateral PE's. documented in this encounterNorwalk Memorial Hospital01-01-2023 Miscellaneous Notes* Telephone Encounter - Deborah [...] speaks in single words) Protocols used: Chest [id number] documented in this encounterNorwalk Memorial Hospital12-30-2022 Hospital Discharge instructions Additional Instructions Follow-up with Dr. Cheung at the [facility] in the next 1 to 2 weeks. Return with increased rectal bleeding, new or worsening symptoms.[facility] Work Phone: [phone]) 338-310912-29-2022 Miscellaneous Notes* PT EVALUATION - Estefany Stern, [...] Precautions: no lifting ASSESSMENT: Patient evaluated [facility]. Reviewed and explained [...] summary for intervention/education details. documented in this encounterNorwalk Memorial Hospital12-28-2022 Miscellaneous Notes* SN SOC - Jovanna Heaton RN - 02/25/2022 9:35 AM EST SITUATION: Intermediate SOC visit completed today. spouse also present during today's visit. 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 Ostomy to RLQ noted, ostomy care completed, [...] care and wound care documented in this encounterNorwalk Memorial Hospital12-19-2022 History of Past illness Narrative* Problem [...] of this encounter (statuses as of 03/04/2022) [facility] of Past [facility] Narrative* Problem [...] of this encounter (statuses as of 03/05/2022) [facility] of Past illness Narrative* Problem [...] of this encounter (statuses as of 03/05/2022) [facility] of Past illness Narrative* Problem [...] of this encounter (statuses as of 03/06/2022) [facility] Past illness Narrative* Problem [...] of this encounter (statuses as of 03/06/2022) [facility] Past [facility] Narrative* Problem [...] of this encounter (statuses as of 03/12/2022) [facility] of Past illness Narrative* Problem [...] of this encounter (statuses as of 03/14/2022) [facility] Past illness Narrative* Problem [...] of this encounter (statuses as of 03/18/2022) [facility] of Past illness Narrative* Problem [...] of this encounter (statuses as of 03/19/2022) [facility] of Past illness Narrative* Problem [...] of this encounter (statuses as of 03/19/2022) [facility] of Past illness Narrative* Problem [...] of this encounter (statuses as of 03/23/2022) [facility] of Past illness Narrative* Problem [...] of this encounter (statuses as of 03/23/2022) [facility] Past illness Narrative* Problem [...] of this encounter (statuses as of 03/23/2022) [facility] Past illness Narrative* Problem [...] of this encounter (statuses as of 03/25/2022) [facility] Past [facility] Narrative* Problem [...] of this encounter (statuses as of 03/26/2022) [facility] illness Narrative* Problem [...] of this encounter (statuses as of 03/26/2022) [facility] Narrative* Problem [...] of this encounter (statuses as of 03/27/2022) [facility] Narrative* Problem [...] of this encounter (statuses as of 03/31/2022) [facility] Narrative* Problem [...] of this encounter (statuses as of 04/01/2022) [facility] Narrative* Problem [...] of this encounter (statuses as of 04/03/2022) [facility] Narrative* Problem [...] of this encounter (statuses as of 04/06/2022) [facility] Narrative* Problem [...] of this encounter (statuses as of 04/07/2022) [facility] Narrative* Problem [...] of this encounter (statuses as of 04/07/2022) [facility] Narrative* Problem [...] of this encounter (statuses as of 04/08/2022) [facility] Narrative* Problem [...] of this encounter (statuses as of 04/08/2022) [facility] Narrative* Problem [...] of this encounter (statuses as of 04/09/2022) [facility] Narrative* Problem [...] of this encounter (statuses as of 04/13/2022) [facility] Narrative* Problem [...] of this encounter (statuses as of 04/14/2022) [facility] Narrative* Problem [...] of this encounter (statuses as of 04/15/2022) [facility] Narrative* Problem [...] of this encounter (statuses as of 04/17/2022) [facility] Narrative* Problem [...] of this encounter (statuses as of 04/21/2022) [facility] Narrative* Problem [...] of this encounter (statuses as of 04/22/2022) [facility] Narrative* Problem [...] of this encounter (statuses as of 04/24/2022) [facility] Narrative* Problem [...] of this encounter (statuses as of 04/24/2022) [facility] Narrative* Problem [...] of this encounter (statuses as of 04/30/2022) [facility] Narrative* Problem [...] of this encounter (statuses as of 05/20/2022) [facility] Narrative* Problem [...] of this encounter (statuses as of 05/20/2022) [facility] Narrative* Problem [...] of this encounter (statuses as of 05/20/2022) [facility] Narrative* Problem [...] of this encounter (statuses as of 05/21/2022) [facility] Narrative* Problem [...] of this encounter (statuses as of 05/21/2022) [facility] Narrative* Problem [...] of this encounter (statuses as of 05/22/2022) [facility] Narrative* Problem [...] of this encounter (statuses as of 05/25/2022) [facility] Narrative* Problem [...] of this encounter (statuses as of 05/26/2022) [facility] Narrative* Problem [...] of this encounter (statuses as of 05/29/2022) [facility] Narrative* Problem [...] of this encounter (statuses as of 06/02/2022) [facility] Narrative* Problem [...] of this encounter (statuses as of 06/05/2022) [facility] Narrative* Problem [...] of this encounter (statuses as of 07/07/2022) [facility] Miscellaneous Notes* Telephone Encounter - Tejal Hawkins LPN - 02/11/2022 4:36 PM EST Per [facility] cm, Dr Cheung will follow * [...] care clinicians may also obtain orders from [facility] Thank you and we would be happy to answer any questions. Tejal Hawkins LPN 02/11/2022 11:51 AM documented in this encounterNorwalk Memorial Hospital12-14-2022 Miscellaneous Notes* Telephone Encounter - Radha [...] Season (After Oct,): No: Patient refused e. [facility] will be providing your [...] maintain a safe environment for our caregivers, [facility] requires anyanimals or weapons present in the home be located in a secured location. Our clinicians will call you the night before or the morning of the appointment. Their # may come up restricted but they'll leave a VM for you. In case you have any questions or concerns in the meantime, our # is [phone], option 5 Thank you for your time and have a great day. Radha Grady documented in this encounterNorwalk Memorial Hospital12-05-2022 History of Present illness Narrative* Thiago Ordaz MD - 02/02/2022 12:55 PM EST I, Thiago Ordaz MD, was notified of and approve the order for transfusion of blood products for Jai Luna. Thiago Ordaz MD Rn Enterostomal, Critical Care Transport * Robert Bullock APRN.[facility] - 02/01/2022 6:45 PM EST Images from the original note were not included. Critical Care Transport Note Patient Name: Jai Luna Service Date: 02/01/2022 Referring Physician: Marie Accepting Physician: Ana Referring Facility: [facility]: ER Accepting Facility: [facility]: [id number] SUBJECTIVE/CHIEF COMPLAINT: Hemoperitoneum REASON FOR TRANSPORT: [...] rectal cancer s/p resection. He presented to [facility] ER on 02/01/2022 for evaluation of ABD pain. Per report, has history of rectal cancer, is s/p chemotherapy and resection w/ loop ileostomy placed at [facility] 01/27/22. Today, noted sudden acute onset ABD [...] managing the patient requested transfer to the [facility] for tertiary and/or quaternary services unavailable at the referring facility. Patient condition at time of exam was: Acutely ill and critically ill. Due to the unique circumstances of the patient, it was determined that this was the closest, most appropriate facility by referring physician. The physician managing the patient requested the [facility] Critical Care Transport Team transport and treat the patient for the purpose of tertiary care, evaluation, and management of his GI condition(s). Air medical transport was requested to reduce the [id number]-vi-[id number] time (21 minutes by air vs. approximately [...] RA General appearance: Severe distress, acutely ill, RED CLIFF HEENT: normocephalic, EOMI, PERRL (~3mm bilat.). Oropharynx [...] Blood Transfusion -- 1unit O-Pos. Whole Blood (#[id number]) - Jai Luna requires emergent blood transfusion as indicated by one of the following: Acute blood loss (known or suspected) with hemodynamic instability or other signs of shock with a Hgb eitherunknown or >7 where control of the hemorrhage source is not able to be obtained. - The risks, benefits, and alternatives to blood transfusion have been discussed with the patient or lead generation representative who cannot consent due to clinical urgency. - Jai Luna requires O+ WHOLE BLOOD. The indication being treatment of anemia and Other: hemorrhagic shock/hemoperitoneum. - The provider (Dr. Wynn and SICU MDs) at the receiving facility was notified that the patient received O+ whole blood. - Patient verified: Yes - Procedure/Site verified: Yes - Physician Notified: Justin Ordaz MD / Angel Bullock, ANALYTICS INTERN.CUP MACHINE OPERATOR ASSESSMENT/PLAN: In short, Jai Luna is a [...] additional blood products. Appears to be alert (RED CLIFF so difficult to assess), protecting his airway [...] monitoring in transport. - Expedite transfer to [facility] for further SICU/surgical management. The transport was completed without significant incident or change in the patient's status. The patient was transported to the the [facility] by [employer] (Helicopter) for tertiary and/or quaternary evaluation and management of his Emergent and Critical Surgical condition(s). Upon arrival to the receiving facility, a ryba-hu-lcly report was given to bedside nursing staff [...] Robert Bullock APRN.CNP Acute Care Nurse Practitioner [facility] Critical Care Transport Team documented in this encounterNorwalk Memorial Hospital12-04-2022 History of Past illness Narrative* Problem Noted Date Resolved Date Respiratory insufficiency 02/01/20222021 Last Assessment & Plan: Assessment: extubated 02/05 Mild b/l GOYO atelectasis, satting 98-99% on RA 02/06 Requiring 2L NC to maintain O2 sat 97-99%. PLAN: -- Wean o2 as able -- Encourage OOB with PT, IS -- IV Lasix 40mg documented as of this encounter (statuses as of 02/11/2022) [facility]12[facility]04[facility] Procedure note* Robert Bullock APRN.CNP - [...] PLACEMENT: Sterile PRIMARY PROCEDURALIST: Robert Bullock CNP SPECIAL EQUIPMENT TECHNICIAN(S): Milagros Malik RN PROCEDURE NARRATIVE Site Marked: [...] Robert Bullock APRN.CNP Acute Care Nurse Practitioner [facility] Critical Care Transport Team documented in this encounterNorwalk Memorial Hospital12-02-2022 Miscellaneous Notes* CARE COORDINATION - Leandro Cruz RN - 01/30/2022 12:00 PM EST SN contacted Brenda on 01/30/22 for the following: ileostomy supplies Coloplast 1 piece drainable pouch #[id number] (1) box elastic barriers (1) box Chamorro Protective seals (1) box adhesive remover (1) loaf 4x4 non woven gauze documented in this encounterNorwalk Memorial Hospital12-02-2022 Miscellaneous Notes* SN SOC - Britta Mantilla RN - 01/30/2022 9:21 AM EST SITUATION: Intermediate SOC visit completed today. spouse also present [...] and peristomal skin condition. documented in this encounterNorwalk Memorial Hospital11-30-2022 Miscellaneous Notes* Telephone Encounter - Radha [...] Season (After Oct,): No: Patient refused e. [facility] will be providing your [...] maintain a safe environment for our caregivers, [facility] requires anyanimals or weapons present in the home be located in a secured location. Our clinicians will call you the night before or the morning of the appointment. Their # may come up restricted but they'll leave a VM for you. In case you have any questions or concerns in the meantime, our # is [phone], option 5 Thank you for your time and have a great day. Radha Grady documented in this encounterNorwalk Memorial Hospital11-15-2022 Miscellaneous Notes* Telephone Encounter - La Calvillo RN - 01/13/2022 10:03 AM EST Per provider request. Called patient. Spoke to Marilu and instructed that patient is to stop hisPlavix 5 days prior to surgery. understood instructions and will share with Chaka. La Calvillo RN January 13, 2022 10:05 AM documented in this encounterNorwalk Memorial Hospital11-15-2022 Miscellaneous Notes* Telephone Encounter - Kush Hutchinson Coord - 01/13/2022 9:25 AM EST Plavix instructions and Outside Cardiology office note has been scanned in. * Telephone Encounter - Calista Mixon RN - 01/12/2022 3:23 PM EST Can someone call this patient's equipment installation professional (Dr. Helen Roa at [place])? I requested optimization and Plavix instructions. He was seen last week on 01/09. Called Dr. Roa's office at [phone]. Deborah from that office states that the letter was faxed to [facility] one hour ago. documented in this encounterNorwalk Memorial Hospital11-09-2022 History of Present illness Narrative* Jovanna [...] 2022 TIME: 11:49 AM documented in this encounterNorwalk Memorial Hospital11-09-2022 History of Present illness Narrative* RT [...] 07, 2022 12:26 PM documented in this encounterNorwalk Memorial Hospital11-09-2022 Instructions* Patient Instructions* Kristel John PA-C - 01/07/2022 8:18 AM EST PATIENT PREOPERATIVE INSTRUCTIONS Ramiro Cheung MD has scheduled you for your procedure at this surgery center: [facility] [place] Scheduling Office: [phone] --[address] [place] [address]. Please read below carefully for your personalized [...] or other anticoagulants without consulting with your equipment installation professional or prescribing physician. - Stop Vitamin E, [...] Procedures: - YOU MUST HAVE A RESPONSIBLE CRUDE OIL DRIVER TAKE YOU HOME. A UPHOLSTERY BUNDLER OR HOME COMPANION CANNOT BE MADE A RESPONSIBLE CRUDE OIL DRIVER. - We recommend that a responsible person [...] call the Wednesday before. Your surgeon s electrical manager will tell you what time to call the office. - If you have not reached the departmental electrical manager by 5 P.M., call [phone] after 5 P.M. the day before your surgery. Please be aware that emergency situations arise, which may delay or change your surgical time. If this happens, we will notify you as soon as possible and regret any inconvenience. If you already have an Advance Directive, please fax a copy to [phone] or email to for it to be [...] day. Kristel John PA-C documented in this encounterNorwalk Memorial Hospital11-09-2022 History and physical note * Kristel [...] Coronary atherosclerosis of unspecified type of vessel, platinum or graft Coronary artery disease Diverticulosis of [...] -patient to schedule pre-op appointment with his equipment installation professional, Dr. Helen Roa, as he has not [...] Uses exercise equipment daily at home and golSchoolwires in the summer ASA Class: 3 ANESTHESIA [...] patient medical history and last F/U with equipment installation professional in 2019. Recommends seeing cardiology prior to surgery, NT Pro BNP, and Troponin today. Cardiology appointment scheduled for tomorrow, patient refused appointment, stated he could not come back to [place] tomorrow. Patient will make an appointment with his equipment installation professional, Dr. Helen Roa. Letter sent to equipment installation professional for optimization and Plavix instructions. The Following [...] 2022 TIME: 8:32 AM documented in this encounterNorwalk Memorial Hospital10-12-2022 History of Present illness Narrative* I [...] done yet. His case was presented to [facility] where it was recommended to proceed with danielle cut biopsy, which was done and revealed Invasive moderately differentiated squamous cell carcinoma. He completed Modified Charlene chemoradiation on July 21, completed restaging in August, and was presented to [facility]. It was recommended that he [...] PT called and expecting a call from [facility]. After initial visit at [facility] likely will get the treatment in [place] and come back for surgery if indicated. [...] cell carcinoma (see comment). C. Rectum, mass, daneille-cut biopsy #2: - Invasive moderately differentiated squamous [...] closed Resting tone: NORMAL Squeeze tone: NORMAL Shredder Picker present: Yes, Maricruz Rudolph Proctoscopy: The patient [...] of treatment plan: moderate documented in this encounterNorwalk Memorial Hospital07-28-2022 Miscellaneous Notes* Telephone Encounter - Smitha Dawson RN - 09/25/2021 9:14 AM EDT Called and spoke with patient Advised of [facility] TB recommendations ppears to have good response, but not complete response. recommend follow up in 3 months with repeat MRI and flexi sig appt scheduled today for flex sig, will request add on for MRI documented in this encounterNorwalk Memorial Hospital07-20-2022 History of Present illness Narrative* RT [...] 2021 TIME: 4:10 PM documented in this encounterNorwalk Memorial Hospital07-20-2022 History of Present illness Narrative* Ramiro [...] PT called and expecting a call from [facility]. After initial visit at [facility] likely will get the treatment in [place] and come back for surgery if indicated. [...] male who had rectal SCC treated with ENGINEER SERGEANT (charlene protocol). He completed in july 21. [...] final recommendations and treatment documented in this encounterNorwalk Memorial Hospital07-01-2022 History of Present illness Narrative* Marisela [...] minutes Marisela Rome MD documented in this encounterNorwalk Memorial Hospital05-23-2022 Nurse Note* Flavia Bernabe RN - 07/21/2021 2:14 PM EDT Written discharge instructions given and reviewed with patient. Patient verbalizes understanding. Encouraged to call with any questions or concerns. Instruction for 4 week phone call follow up appointment given per Dr. Rome. documented in this encounterNorwalk Memorial Hospital05-23-2022 History of Present illness Narrative* Marisela Rome MD, MD - 07/21/2021 12:00 AM EDT JAI LUNA [id number] : 1950 07/21/2021 [facility] Department of Radiation Oncology RADIATION ONCOLOGY - [...] Signed cc: Helen Cheung documented in this encounterNorwalk Memorial Hospital05-20-2022 Miscellaneous Notes* Telephone Encounter - Linda Gregory Pss - 07/18/2021 1:11 PM EDT Patient will call to schedule MRI and Dr. Cheung follow up on same day. documented in this encounterNorwalk Memorial Hospital05-20-2022 History of Present illness Narrative* Alexia Rao APRN.CUP MACHINE OPERATOR - 07/18/2021 12:31 PM EDT Chief Complaint Patient presents with: Established Patient HPI: Jai Luna is a 71 year old male who presents here today for follow up rectal cancer. Per Dr. Lkahani's previous note: H/o acoustic neuroma, cervical radiculopathy, [...] k/uL 0.52 (L) 0.47 (L) 0.38 (L) [place]% % 20.9 17.7 17.3 Abs [place] <0.87 k/uL 0.68 0.72 0.55 Eosin% % [...] visit. Alexia Rao APRN.CHELSIE documented in this encounterNorwalk Memorial Hospital05-17-2022 History of Present illness Narrative* Marisela [...] planned. Marisela Rome MD documented in this encounterNorwalk Memorial Hospital05-17-2022 Nurse Note* Krys Stafford RN - 07/15/2021 2:08 PM EDT Radiation Therapy - Nursing Note (OTV) PATIENT NAME: Jai Luna PATIENT July 15, 2021 [facility] [place] FACILITY/LOCATION: [place] NURSING NOTE TYPE: pelvis Subjective Data See pain assessment Additional Data Do you want to see a Coating And Baking Operator? No Status: Patient is male Stress Scale: On a scale of 0 to 10, what number best describes how much distress you have experienced in the past week?(0 being no distress and 10 being extreme distress) 4 Social work notified: Pt denied need to see licensed clinical social worker at this time. Nursing Assessment [...] by: Krys Stafford RN documented in this encounterNorwalk Memorial Hospital05-12-2022 Miscellaneous Notes* Telephone Encounter - Krys Stafford RN - 07/10/2021 1:[address] Rome reviewed results. Pt advised to picked edge sewing machine operator Cipro a t Pharmacy. Pt states that he has not been using Zofran and has been advised to avoid using it during treatement with Cipro due to a possible drug interaction. Pt verbalized understanding and will picked edge sewing machine operator medication today. Pt uses [facility] in [place]. * Telephone Encounter - Flavia Bernabe RN [...] is agreeable to plan. documented in this encounterNorwalk Memorial Hospital05-10-2022 History of Present illness Narrative* Marisela [...] planned. Marisela Rome MD documented in this encounterNorwalk Memorial Hospital05-10-2022 Nurse Note* Flavia Bernabe RN - 07/08/2021 1:38 PM EDT Radiation Therapy - Nursing Note (OTV) PATIENT NAME: Jai Luna PATIENT July 08, 2021 [facility] [place] FACILITY/LOCATION: [place] NURSING NOTE TYPE: RECTAL Subjective Data SEE pain assessment Additional Data Do you want to see a Coating And Baking Operator? No Status: Patient is male Stress Scale: [...] by: Flavia Bernabe RN documented in this encounterNorwalk Memorial Hospital05-09-2022 History of Present illness Narrative* Enid [...] Tolerated well without issue documented in this encounterNorwalk Memorial Hospital05-09-2022 History of Present illness Narrative* Enid Garsia RN - 07/07/2021 10:52 AM EDT . documented in this encounterNorwalk Memorial Hospital05-09-2022 Miscellaneous Notes* Telephone Encounter - Rabia [...] not signed. Thank you documented in this encounterNorwalk Memorial Hospital05-06-2022 History of Present illness Narrative* Alexia [...] 4.00 k/uL 1.11 0.90 (L) 0.52 (L) [place]% % 8.1 18.4 20.9 Abs [place] <0.87 k/uL 0.38 0.67 0.68 Eosin% % [...] visit. Alexia Rao APRN.CHELSIE documented in this encounterNorwalk Memorial Hospital05-03-2022 Miscellaneous Notes* Telephone Encounter - Helen [...] you. Josselyn Stanford, PharmD Clinical Pharmacist, Oncology [facility] P: , F: Pool: P [facility] Pool #: [id number] documented in this encounterNorwalk Memorial Hospital05-03-2022 Nurse Note* Krys Stafford RN - 07/01/2021 1:47 PM EDT Radiation Therapy - Nursing Note (OTV) PATIENT NAME: Jai Luna PATIENT July 01, 2021 [facility] [place] FACILITY/LOCATION: [place] NURSING NOTE TYPE: RECTAL Subjective Data See pain assessment Additional Data Do you want to see a Coating And Baking Operator? No Status: Patient is male Stress Scale: On a scale of 0 to 10, what number best describes how much distress you have experienced in the past week?(0 being no distress and 10 being extreme distress) 4 Social work notified: Pt denied need to see licensed clinical social worker at this time. Nursing Assessment [...] by: Krys Stafford RN documented in this encounterNorwalk Memorial Hospital05-03-2022 History of Present illness Narrative* Marisela [...] planned. Marisela Rome MD documented in this encounterNorwalk Memorial Hospital05-03-2022 History of Present illness Narrative* Graciela Malin (Vegetable Loader) - 07/01/2021 12:11 PM EDT [facility] Refill Assessment Medication(s): Capecitabine x 2 Therapy continues to be appropriate for disease, patient response, and medical condition. Verification of therapeutic benefit and effectiveness with current therapy. Adverse events, barriers in adherence, and side effects assessed and addressed. Will proceed with refill with no changes. [facility] Visit Assessment - Hematology/Oncology: Assessment to use: Refill Non-Clinical Assessment: Patient confirmed: Yes Med/dose confirmed: Yes Supplies needed: N/A Missed doses: No Estimated days supply on hand: 3 Copay amount: 0 Payment confirmed: Yes Address confirmed: Yes Delivery method: FedEx Delivery address: [address] [place] [id number] Delivery date: 07/03/2021 Patient has questions: No Additional questions, comments, concerns: Patient stated he just started week 4 this week 06/30. Hestated to his understanding he will be doing 6 weeks but MD had not decided on it yet. Will set up remainder of what we have for week 5 and will have [facility] reach out to MD office [...] limited to bone marrow suppression, cardiotoxicity, diarrhea, jbrm-bfd-ucpp syndrome, hepatotoxicity Monitoring: - CBC with differential, [...] Estimated Treatment Duration: 5 weeks Graciela Malin (Vegetable Loader) documented in this encounterNorwalk Memorial Hospital04-26-2022 Nurse Note* Flavia Bernabe RN - 06/24/2021 2:02 PM EDT Radiation Therapy - Nursing Note (OTV) PATIENT NAME: Jai Luna PATIENT June 24, 2021 [facility] [place] FACILITY/LOCATION: [place] NURSING NOTE TYPE: RECTAL Subjective Data no complaints today Additional Data Do you want to see a Coating And Baking Operator? No Status: Patient is male Stress Scale: [...] by: Flavia Bernabe RN documented in this encounterNorwalk Memorial Hospital04-26-2022 History of Present illness Narrative* Marisela [...] planned. Marisela Rome MD documented in this encounterNorwalk Memorial Hospital04-20-2022 History of Present illness Narrative* Helen [...] (97.5 F), weight 89.4 kg (197 lb), [id number] %. Well-appearing and in no acute distress. [...] No jaundice or rash. No petechiae. NEUROLOGIC: sanitation tank washer II-XII are grossly intact. No focal motor [...] Abs Lymph 1.00 - 4.00 k/uL 1.11 [place]% % 8.1 Abs [place] <0.87 k/uL 0.38 Eosin% % 3.2 Abs [...] care. Helen Lakhani DO documented in this encounterNorwalk Memorial Hospital04-19-2022 Miscellaneous Notes* Addendum Note - Helen [...] protocol. Amelia Souza RN documented in this encounterNorwalk Memorial Hospital04-19-2022 History of Present illness Narrative* Marisela [...] planned. Marisela Rome MD documented in this encounterNorwalk Memorial Hospital04-19-2022 Nurse Note* Krys Stafford RN - 06/17/2021 1:57 PM EDT Radiation Therapy - Nursing Note (OTV) PATIENT NAME: Jai Luna PATIENT June 17, 2021 [facility] [place] FACILITY/LOCATION: [place] NURSING NOTE TYPE: RECTAL Subjective Data see pain assessment Additional Data Do you want to see a Coating And Baking Operator? No Status: Patient is male Stress Scale: [...] by: Krys Stafford RN documented in this encounterNorwalk Memorial Hospital04-18-2022 History of Present illness Narrative* Enid [...] Patient tolerated procedure well. documented in this encounterNorwalk Memorial Hospital04-13-2022 Miscellaneous Notes* Telephone Encounter - Shamar Stafford - 06/11/2021 1:06 PM EDT Working Cancer Piotr. Patient is active with Medicare A and B as well as [facility], and is not expected to have any financial responsibility for treatment in [facility]. There are no open foundations for Dx. Spoke with patient and advised of navigator services and insurance. Patient stated understanding and advised that they are ok at this time. documented in this encounterNorwalk Memorial Hospital04-11-2022 Miscellaneous Notes* Telephone Encounter - Rabia [...] Mitomycin infusion. Please advise. documented in this encounterNorwalk Memorial Hospital04-10-2022 Miscellaneous Notes* Telephone Encounter - Nica [...] need to enter his PCP's information into [employer]. Helen Lakhani DO documented in this encounterNorwalk Memorial Hospital04-08-2022 History of Present illness Narrative* Helen [...] No jaundice or rash. No petechiae. NEUROLOGIC: sanitation tank washer II-XII are grossly intact. No focal motor [...] which included preparing to see the patient, bcnd-oz-revu patient care, completing clinical documentation, obtaining and/or reviewing separately obtained history, performing a medically appropriate examination, counseling and educating the pat ient/family/caregiver, ordering medications, tests, or procedures, independently interpreting results (not separately reported) and communicating results to the patient/family/caregiver. Helen Lakhani DO documented in this encounterNorwalk Memorial Hospital04-05-2022 Miscellaneous Notes* Telephone Encounter - Josselyn Stanford RPh - 06/03/2021 3:45 PM EDT Queued up prescription for Xeloda for 1650mg BID dosing per our conversation for 5 weeks of chemoRT. Please review and sign if this change is acceptable. Thank you. Dominick ShelbyD Clinical Pharmacist, Oncology [facility] P: , F: Pool: P [facility] Pool #: [id number] documented in this encounterNorwalk Memorial Hospital04-04-2022 Nurse Note* Krys Stafford RN - 06/02/2021 10:11 AM EDT Radiation Therapy - Patient Education Note PATIENT NAME: Jai Luna PATIENT June 02, 2021 [facility] [place] FACILITY/LOCATION: [place] READINESS TO LEARN Cognitive Ability: Alert and [...] need for social work, van service, and accounts receivable coordinator. Was approved? unknown Signed by: Krys Stafford RN * Krys Stafford RN - 06/02/2021 9:15 AM EDT Radiation Therapy - Nursing Note (Consult) PATIENT NAME: Jai Luna PATIENT June 02, 2021 [facility] [place] FACILITY/LOCATION: [place] Chief Complaint: consult Reason for visit: Consult. Referring physician: Internal provider Dr Huitron Subjective Data: pt reports rectal bleeding Additional Data Do you want to see a Coating And Baking Operator? No Are you interested in information about fertility? No Status: Patient is male Stress Scale: On a scale of 0 to 10, what number best describes how much distress you have experienced in the past week?(0 being no distress and 10 being extreme distress) 0 Social work notified: Pt denied need to see licensed clinical social worker at this time. Radiation therapy teaching initiated. [facility] external beam radiation therapy handout given. Departmentphone numbers given & patient encouraged to verbalize questions. SIGNED by: Krys Stafford RN documented in this encounterNorwalk Memorial Hospital04-04-2022 History of Present illness Narrative* Enid Natarajan (Senior Bookkeeper) - 06/02/2021 9:17 AM EDT [facility] received prescription(s) for Capecitbine from Dr. Bowens's office. Benefits investigation was conducted, indicating that a prior authorization is not required at this time per patient's plan with Medicare B. Prescriptions will now be processed through [facility] Specialty for determination of next steps. Enid Natarajan [facility] Oncology P: [phone] F: [phone] [email or web address] documented in this encounterNorwalk Memorial Hospital04-04-2022 History of Present illness Narrative* Marisela [...] Coronary atherosclerosis of unspecified type of vessel, platinum or graft Coronary artery disease Diverticulosis of [...] PROSTATE SURGERY HX STRABISMUS RECESSION[facility]CJ [facility] Strabismus surgery TONSILLECTOMY HX [...] rectum. His case was discussed at the [facility] main campus tumor board and chemoradiation treatment per anal cancer protocol was recommended. I agree. I explained the rationale, benefits, alternative management options and potential complications of radiation treatment to the patient and he understands and agrees to proceed. It was explained and understood that other personnel such as radiation therapists, resin maker, and physicists will participate in planning and [...] to participate in his care. Signed by: Mraisela Rome MD cc: Susu Talia Huitron [id number] [address] [facility] [address] Helen Lakhani [facility] Ramiro Cheung documented in this encounterNorwalk Memorial Hospital04-04-2022 History of Present illness Narrative* Marisela Rome MD, MD - 06/02/2021 12:00 AM EDT JAI LUNA [id number] 06/02/2021 [facility] Department of Radiation Oncology [facility] RADIATION ONCOLOGY SIMULATION NOTE DATE OF SIMULATION: [...] Rome M.D./ 29:17 AM documented in this encounterNorwalk Memorial Hospital04-04-2022 History of Present illness Narrative* Marisela Rome MD, MD - 06/02/2021 12:00 AM EDT JAI LUNA [id number] 06/02/2021 [facility] Department of Radiation Oncology Treatment Planning Note [...] Rome M.D. 21:47 PM documented in this encounterNorwalk Memorial Hospital04-01-2022 History of Present illness Narrative* Enid Naatrajan (Senior Bookkeeper) - 05/30/2021 3:12 PM EDT [facility] received prescription(s) for Capecitabine from Dr. Bowens's office. Benefits investigation was conducted, indicating that a prior authorization is not required at this time per patient's plan with Medicare. Prescriptions will now be processed through [facility] Specialty for determination of next steps. 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 However, he lives in [place] and would like to receive his cares [...] responsible provider. cc: I Dutch Cheung [address] [facility] [address] Caty Bowens [facility] Marisela Rome [facility] documented in this encounterNorwalk Memorial Hospital03-31-2022 Nurse Note* Bertha Orosco MA - 05/29/2021 10:06 AM EDT Additional intake questions: Has the patient had fever, nausea, vomiting, diarrhea, constipation, fatigue for > 1 week? Yes, constipation (day of last BM TODAY) Does the patient have a decreased appetite? No Does patient want to see a Coating And Baking Operator? Unable to assess due to N/A (yes [...] Work or Resource Center documented in this encounterNorwalk Memorial Hospital03-31-2022 History of Present illness Narrative* Caty Bowens MD - 05/29/2021 10:00 AM EDT [facility] ONCOLOGY CLINICAL NOTE PATIENT NAME: Jai Luna DATE OF : 1950 CLINIC NO.: [id number] DATE OF SERVICE: May 29, 2021 REFERRING PHYSICIAN: Ramiro Cheung [address] [facility] [id number] PRIMARY CARE PHYSICIAN: No Pcp CONSULTATION REGARDING: [...] no history of cancer SH: Lives in [place], [place]. . 1 daughter. Former smoker (30 [...] to get treatment closer to home at [place]. I will make the referral today to regional oncology at [place]. We discussed treatment with Charlene protocol with [...] Huitron - consult to regional oncology at [facility] - labs: DPYD testing done today 2. Colorectal cancer screening for family members - recommend starting at age 40 Thank you for the courtesy of this consultation. I spent 60 minutes on the date of this encounter providing and coordinating patient care including >50% of that time spent providing ziym-ci-cifb patient care. Caty Bowens MD GI Medical Oncologist [facility] [place] cc: I Dutch Cheung [address] [facility] [id number] documented in this encounterNorwalk Memorial Hospital05-18-2021 History of Present illness Narrative* Mr. 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, unspecified site [facility]* Diagnosis Prostate cancer (HCC)- Primary Malignant neoplasm of prostate 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 documented [facility]* Diagnosis Rectal malignant neoplasm (HCC)- Primary Malignant neoplasm of rectum 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 documented [facility]* Diagnosis Rectal malignant neoplasm (HCC)- Primary Malignant neoplasm of rectum documented [facility]* Diagnosis 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, unspecified site documented [facility]* Diagnosis Rectal malignant neoplasm (HCC)- Primary Malignant neoplasm of rectum Dysuria documented [facility]* Diagnosis Rectal malignant neoplasm (HCC)- Primary Malignant neoplasm of rectum documented [facility]* Diagnosis 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, unspecified site documented [facility]* Diagnosis 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, unspecified site [facility] Diagnosis 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, unspecified site [facility] 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, unspecified site [facility] Diagnosis Rectal malignant neoplasm (HCC)- Primary Malignant neoplasm of rectum Rectal malignant neoplasm (HCC)- Primary Malignant neoplasm of rectum [facility] Diagnosis 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, unspecified site [facility] Diagnosis Rectal malignant neoplasm (HCC)- Primary Malignant neoplasm of rectum [facility] Diagnosis 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, unspecified site [facility]* Diagnosis Dysuria- Primary [facility]* Diagnosis 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, unspecified site [facility] Diagnosis 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, unspecified site [facility] Diagnosis Radiotherapy follow-up- Primary Radiotherapy follow-up examination 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, unspecified site [facility]* Diagnosis Rectal cancer (HCC)- Primary Malignant neoplasm of rectum [facility] Diagnosis 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, unspecified site [facility]* Diagnosis Squamous cell carcinoma of rectum [...] neoplasm of [facility] Pre-operative clearance- Primary Preoperative examination, unspecified [facility]* Diagnosis Pre-op evaluation- Primary Preoperative examination, unspecified 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 Bilateral carotid artery stenosis Occlusion and stenosis of carotid artery without mention of cerebral infarction Primary hypertension Unspecified essential hypertension Shortness of breath Shortness of breath 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 Essential hypertension Unspecified essential hypertension 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 Dyslipidemia Other and unspecified hyperlipidemia [facility]* Diagnosis Rectal cancer (HCC) Malignant neoplasm of rectum Malignant neoplasm of rectum (HCC) Malignant neoplasm of rectum [facility]* Diagnosis Onset Date Resolution Status Dilated aortic root acute 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 Bilateral carotid artery stenosis chronic Dyslipidemia chronic Essential hypertension chron ic Peripheral vascular disease chronic [facility] Work Phone: Evaluation note* Diagnosis Rectal cancer (HCC)- Primary Malignant neoplasm of rectum [facility]* Diagnosis Anemia, unspecified type- Primary Pulmonary embolism and infarction (HCC) Other pulmonary embolism and infarction Hypokalemia Hypopotassemia 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) Ileostomy status Generalized weakness Other malaise and fatigue [facility]* Diagnosis History of venous thromboembolism- Primary Personal history of venous thrombosis and embolism Presence of IVC filter Other postprocedural status Acute blood loss anemia Acute posthemorrhagic anemia Rectal cancer (HCC) Malignant neoplasm of rectum Compression neuropathy Mononeuritis of unspecified site [facility]* Diagnosis Postoperative state- Primary Other postprocedural status [facility]* Diagnosis 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)- Primary Attention to ileostomy [facility]* Diagnosis Rectal malignant neoplasm (HCC)- Primary [...] Attention to ileostomy [facility] Encounter for therapeutic drug monitoring- Primary 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) Attention to ileostomy [facility] Diagnosis Serum potassium elevated- Primary Hyperpotassemia 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) Attention to ileostomy [facility]* Diagnosis Pre-op evaluation- Primary Preoperative examination, unspecified 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, unspecified whether platinum or transplanted heart (HCC) Pulmonary embolism and infarction (HCC) Other pulmonary embolism and infarction Bilateral carotid artery stenosis Occlusion and stenosis of carotid artery without mention of cerebral infarction 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)- Primary Attention to ileostomy 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) Attention to ileostomy [facility]* Diagnosis 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)- Primary Attention to ileostomy 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) Attention to ileostomy [facility]* Diagnosis History of rectal cancer- Primary Personal history of malignant neoplasm of rectum, rectosigmoid junction, and anus 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) Attention to ileostomy 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) Attention to ileostomy [facility]* Diagnosis History of pulmonary embolism- Primary [...] Attention to ileostomy [facility]* Diagnosis 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) Attention to ileostomy Preoperative examination Preoperative examination, unspecified 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) Attention to ileostomy [facility] Diagnosis Iron deficiency anemia, unspecified [...] Attention to ileostomy [facility] Diagnosis Acute deep vein thrombosis (DVT) of proximal vein of left lower extremity (HCC)- Primary [facility]* Diagnosis Acute deep vein thrombosis (DVT) of proximal vein of left lower extremity (HCC)- Primary [facility]* Diagnosis Acute deep vein thrombosis (DVT) of proximal vein of left lower extremity (HCC)- Primary [facility]* Diagnosis Acute deep vein thrombosis (DVT) of proximal vein of left lower extremity (HCC)- Primary documented [facility]* Diagnosis Deep vein thrombosis (DVT) of both lower extremities, unspecified chronicity, unspecified vein (HCC)- Primary 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) Chronic venous embolism and thrombosis of deep vessels of distal lower extremity [facility]* Diagnosis Deep vein thrombosis (DVT) of both lower extremities, unspecified chronicity, unspecified vein (HCC)- Primary Localized edema Edema [facility]* Diagnosis 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)- Primary S/P IVC filter Other postprocedural status Current use of genetic counselor anticoagulation Long-term (current) use of anticoagulants Bruit of right carotid artery Atherosclerosis of aorta (HCC) Atherosclerosis of aorta [facility]* Diagnosis Acute deep vein thrombosis (DVT) of proximal vein of left lower extremity (HCC)- Primary documented in this encounter [facility] note* Diagnosis Acute deep vein thrombosis (DVT) of proximal vein of left lower extremity (HCC)- Primary [facility]* Diagnosis Acoustic neuroma [facility]) Benign neoplasm of cranial nerves documented in this encounter [facility] Work Phone: Evaluation note* Diagnosis Acute deep vein thrombosis (DVT) of proximal vein of left lower extremity (HCC)- Primary [facility]* Diagnosis Left arm pain- Primary Pain in limb documented in this encounter [facility] note* Diagnosis Ingrown nail of great toe- Primary documented [facility]* Diagnosis Pain in left arm- Primary documented [facility]* Diagnosis Onset Date Resolution Status Dilated aortic root acute 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 Bilateral carotid artery stenosis chronic Dyslipidemia chronic Essential hypertension chron ic Peripheral vascular disease chronic 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 Claudication of left lower extremity chronic 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 [facility] Work Phone: Evaluation note* Diagnosis Pain in left arm documented in this encounter [facility] note* Diagnosis Primary osteoarthritis of left shoulder- Primary Primary localized osteoarthrosis, shoulder region Calcific tendinitis of left shoulder Calcifying tendinitis of shoulder [facility]* Diagnosis Rectal bleeding- Primary Hemorrhage of rectum and anus History of rectal cancer Colorectal anastomotic stricture documented in this encounter [facility] note* Diagnosis History of rectal cancer- Primary Personal history of malignant neoplasm of rectum, rectosigmoid junction, and anus documented in this encounter [facility] note* Diagnosis History of rectal cancer- Primary Personal history of malignant neoplasm of rectum, rectosigmoid junction, and anus documented in this encounter [facility] note* Diagnosis History of rectal cancer Personal history of malignant neoplasm of rectum, rectosigmoid junction, and anus History of rectal cancer- Primary Personal history of malignant neoplasm of rectum, rectosigmoid junction, and anus History of rectal cancer Personal history of malignant neoplasm of rectum, rectosigmoid junction, and anus documented [facility]* Diagnosis Preoperative examination- Primary Preoperative examination, unspecified History of rectal cancer Personal history of malignant neoplasm of rectum, rectosigmoid junction, and anus 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 Completed by Dr. Reynolds at [facility] on Plavix and ASA. * Assessment [...] 2/2 acoustic neuroma. 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 Bilateral carotid artery stenosis Occlusion and stenosis of carotid artery without mention of cerebral infarction Status post coronary artery bypass graft Postsurgical aortocoronary bypass status Essential hypertension Unspecified essential hypertension Pre-operative examination Preoperative examination, unspecified Pre-op evaluation- Primary Preoperative examination, unspecified 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 Bilateral carotid artery [...] bypass graft with angina pectoris, unspecified whether platinum or transplanted heart (HCC) Pulmonary embolism and [...] bypass graft with angina pectoris, unspecified whether platinum or transplanted heart (HCC) History of pulmonary [...] Primary Ileostomy status [facility] Diagnosis 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 Bilateral carotid artery stenosis Occlusion and stenosis of carotid artery without mention of cerebral infarction Status post coronary artery bypass graft Postsurgical aortocoronary bypass status Essential hypertension Unspecified essential hypertension Pre-operative examination Preoperative examination, unspecified Pre-op evaluation- Primary Preoperative examination, unspecified 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 Bilateral carotid artery [...] bypass graft with angina pectoris, unspecified whether platinum or transplanted heart (HCC) Pulmonary embolism and [...] bypass graft with angina pectoris, unspecified whether platinum or transplanted heart (HCC) History of pulmonary [...] joint, shoulder region [facility] Diagnosis 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 Bilateral carotid artery stenosis Occlusion and stenosis of carotid artery without mention of cerebral infarction Status post coronary artery bypass graft Postsurgical aortocoronary bypass status Essential hypertension Unspecified essential hypertension Pre-operative examination Preoperative examination, unspecified Pre-op evaluation- Primary Preoperative examination, unspecified 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 Bilateral carotid artery [...] bypass graft with angina pectoris, unspecified whether platinum or transplanted heart (HCC) Pulmonary embolism and [...] bypass graft with angina pectoris, unspecified whether platinum or transplanted heart (HCC) History of pulmonary [...] thrombosis and embolism [facility] Diagnosis Acoustic neuroma (Multi) Benign neoplasm of cranial nerves documented in this encounter [facility] Work Phone: Evaluation note* Diagnosis 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 Bilateral carotid artery stenosis Occlusion and stenosis of carotid artery without mention of cerebral infarction Status post coronary artery bypass graft Postsurgical aortocoronary bypass status Essential hypertension Unspecified essential hypertension Pre-operative examination Preoperative examination, unspecified Pre-op evaluation- Primary Preoperative examination, unspecified 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 Bilateral carotid artery [...] bypass graft with angina pectoris, unspecified whether platinum or transplanted heart Pulmonary embolism and infarction [...] bypass graft with angina pectoris, unspecified whether platinum or transplanted heart History of pulmonary embolism [...] of ileostomy (HCC) [facility] Diagnosis 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 Bilateral carotid artery stenosis Occlusion and stenosis of carotid artery without mention of cerebral infarction Status post coronary artery bypass graft Postsurgical aortocoronary bypass status Essential hypertension Unspecified essential hypertension Pre-operative examination Preoperative examination, unspecified Pre-op evaluation- Primary Preoperative examination, unspecified 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 Bilateral carotid artery [...] bypass graft with angina pectoris, unspecified whether platinum or transplanted heart Pulmonary embolism and infarction [...] bypass graft with angina pectoris, unspecified whether platinum or transplanted heart History of pulmonary embolism [...] anus, unspecified site [facility] Diagnosis 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 Bilateral carotid artery stenosis Occlusion and stenosis of carotid artery without mention of cerebral infarction Status post coronary artery bypass graft Postsurgical aortocoronary bypass status Essential hypertension Unspecified essential hypertension Pre-operative examination Preoperative examination, unspecified Pre-op evaluation- Primary Preoperative examination, unspecified 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 Bilateral carotid artery [...] bypass graft with angina pectoris, unspecified whether platinum or transplanted heart Pulmonary embolism and infarction [...] bypass graft with angina pectoris, unspecified whether platinum or transplanted heart History of pulmonary embolism [...] Attention to ileostomy [facility] Diagnosis 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 Bilateral carotid artery stenosis Occlusion and stenosis of carotid artery without mention of cerebral infarction Status post coronary artery bypass graft Postsurgical aortocoronary bypass status Essential hypertension Unspecified essential hypertension Pre-operative examination Preoperative examination, unspecified Pre-op evaluation- Primary Preoperative examination, unspecified 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 Bilateral carotid artery [...] bypass graft with angina pectoris, unspecified whether platinum or transplanted heart Pulmonary embolism and infarction [...] bypass graft with angina pectoris, unspecified whether platinum or transplanted heart History of pulmonary embolism [...] Attention to ileostomy [facility] Diagnosis 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 Bilateral carotid artery stenosis Occlusion and stenosis of carotid artery without mention of cerebral infarction Status post coronary artery bypass graft Postsurgical aortocoronary bypass status Essential hypertension Unspecified essential hypertension Pre-operative examination Preoperative examination, unspecified Pre-op evaluation- Primary Preoperative examination, unspecified 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 Luna [...] has not had any changes in hearing. [id number] [id number] Work Phone: Patient's home Plan of care note* Visit Details Visit Type -SN SOC Discipline -Intermediate Problems Problem Description Start Date Status Goals [...] and ostomy precautions. 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 [facility] Visit [...] and written instructions. [facility]* Visit [...] home exercise program. documented in this encounter [facility] home Plan of care note* Visit Details Visit Type -SN ROUTINE Discipline -Intermediate Problems Problem Description Start Date Status Goals [...] s/s PE exacerbation.. documented in this encounter [facility]'s home Plan of care note* Visit Details Visit Type -THREAD SEPARATOR ROUTINE Discipline -Physical Therapy Problems Problem Description [...] community ambulation, in order to return to [facility] , to be achieved by [...] home [facility] program. [facility] Visit Details Visit Type -SN ROUTINE Discipline -Intermediate Problems Problem Description Start Date Status Goals [...] & symptom reporting. [facility] Visit Details Visit Type -THREAD SEPARATOR ROUTINE Discipline -Physical Therapy Problems Problem Description [...] community ambulation, in order to return to [facility] , to be achieved by [...] Visit Details Visit Type -SN ROUTINE Discipline -Intermediate Problems Problem Description Start Date Status Goals [...] scheduled/docume nted intervention 1 goal intervention scheduled/documen edyanira in this visit Pain Disciplines: Skilled Services [...] exacerbation, self monitoring. documented in this encounter [facility] home Plan of care note* Visit Details Visit Type -SN ROUTINE Discipline -Intermediate Problems Problem Description Start Date Status Goals [...] instructed on PE. [facility] Visit Details Visit Type -THREAD SEPARATOR ROUTINE Discipline -Physical Therapy Problems Problem Description [...] home exercise program. [facility] Visit Details Visit Type -SN ROUTINE Discipline -Intermediate Problems Problem Description Start Date Status Goals [...] s/s PE exacerbation. documented in this encounter [facility] home Plan of care note* Visit Details Visit Type -THREAD SEPARATOR ROUTINE Discipline -Physical Therapy Problems Problem Description [...] home exercise program. [facility] Visit Details Visit Type -SN ROUTINE Discipline -Intermediate Problems Problem Description Start Date Status Goals [...] s/s DVT exacerbation.. [facility] Visit Details Visit Type -THREAD SEPARATOR ROUTINE Discipline -Physical Therapy Problems Problem Description [...] community ambulation, in order to return to [facility] , to be achieved by [...] home exercise program. [facility] Visit Details Visit Type -THREAD SEPARATOR ROUTINE Discipline -Physical Therapy Problems Problem Description [...] community ambulation, in order to return to [facility] , to be achieved by [...] home exercise program. [facility] Visit Details Visit Type -SN ROUTINE Discipline -Intermediate Problems Problem Description Start Date Status Goals [...] s/s PE exacerbation. [facility] Visit Details Visit Type -SN ROUTINE Discipline -Intermediate Problems Problem Description Start Date Status Goals [...] s/s PE exacerbation. documented in this encounter [facility] home Plan of care note* Visit Details Visit Type -SN ROUTINE Discipline -Intermediate Problems Problem Description Start Date Status Goals Interve ntions Medication Education Disciplines: Skilled Services 02/25/2022 Active 1 goal linked to scheduled/docume nted intervention 1 goal intervention scheduled/documen deyanira in this visit Sepsis Disciplines: Skilled Services 02/25/2022 Active 1 goal linked to scheduled/docume nted intervention 1 goal intervention scheduled/documen edyanira in this visit Cancer Disciplines: Skilled Services [...] & symptom reporting. [facility] Visit Details Visit Type -THREAD SEPARATOR ROUTINE Discipline -Physical Therapy Problems Problem Description [...] community ambulation, in order to return to [facility] , to be achieved by [...] home exercise program. [facility] Visit Details Visit Type -THREAD SEPARATOR ROUTINE Discipline -Physical Therapy Problems Problem Description [...] community ambulation, in order to return to [facility] , to be achieved by [...] home exercise program. [facility] Visit Details Visit Type -THREAD SEPARATOR ROUTINE Discipline -Physical Therapy Problems Problem Description [...] community ambulation, in order to return to [facility] , to be achieved by [...] home exercise program. [facility] Visit [...] community ambulation, in order to return to [facility] , to be achieved by [...] include: verbal cues. [facility] Visit Details Visit Type -SN AGENCY DC W V ISIT Discipline -Intermediate Problems Problem Description Start Date Status Goals [...] and Cardiac Diet. [facility] Carlos Trujillo [facility] Note Date/Time November 29, 2024 11 :17am [facility] [address] [place] [address] OFFICE VISIT Date of Service: 11/29/24 MR#: [id number] Acct: [id number] Name: JAI LUNA Rep #: [id number] : [id number] Provider: ALTAGRACIA Trujillo Age/Sex: 74/M Location: [facility] Status: Signed HPI HPI History of Present [...] abdominal area, he was lift flighted to [facility]. He then had complications for PE/DVTs. He [...] from a previous echo done at the [facility] 02/13/2022. The last catheterization November 2016 the [...] procedures. The stenting procedures were done at [facility] by Dr. Joshua Lloyd. He denies palpitations. 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 transplanted heart: platinum heart Dyslipidemia E78.5 Peripheral vascular disease I73.9 Essential hypertension I10 Preoperative cardiovascular examination Z01.810 Clinical Quality Measures Falls Risk Screening/Assistive Devices Have you fallen in the past year?: No 11/29/24 1125 <Electronically signed by Carlos FRIAS> Date _ Carlos FRIAS Cosigner Signature: Date (if applicable) CC: Dr. Katy Faust MD ~ [facility] [employer] Work Phone: Reason for referral (narrative)* Outpatient Procedure (Routine) - Authorized Specialty Diagnoses / Procedures [facility] Referred To Contact [facility] [place] Diagnoses Pre-operative clearance Procedures ECG COMPLETE ECG ROUTINE ECG W/LEAST 12 LDS W/I&R Eric Hernandez MD [address] [place] [address] [place] [address] Referral ID Status Reason Start Date Expiration Date Visits Requested Visits Authorized [id number] Authorized Auto-Generat ed Referral 01/07/2022 01/07/2023 1 1 [facility] for referral (narrative)* Outpatient Procedure (Routine) - Authorized Specialty Diagnoses / Procedures [facility] Referred To Contact [facility] [place] Diagnoses Personal history of DVT (deep vein thrombosis) Anticoagulation management encounter History of pulmonary embolism Procedures US LEG VEIN DVT U[facility]ANO VAS LAB DUP-SCAN XTR VEINS COMPLETE BILATERAL STUDY Terry Cifuentes MD [address] [place] [address] [place] [address] Referral ID Status Reason Start Date Expiration Date Visits Requested Visits Authorized [id number] Authorized Auto-Generat ed Referral 05/20/2022 05/20/2023 1 1 [facility] for referral (narrative)* Diagnostic Procedure Only (Routine) - Closed Specialty Diagnoses / Procedures [facility] Referred To Contact XR IMAGING Diagnoses 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) Preoperative examination Procedures XR COLON SINGLE CONTRAST RADIOLOGIC EXAM COLON SINGLE CONTRAST STUDY Ramiro Cheung MD [address] [place] [address] Xr Imaging Referral ID Status Reason Start Date Expiration Date V isits Requested Visits Authorized [id number] Closed Auto-Generate d Referral 04/01/2022 05/01/2023 1 1 [facility] for referral (narrative)* Diagnostic Procedure Only (Routine) - Pending Review Specialty Diagnoses / Procedures Referred By Contac t Referred To Contact US IMAGING Diagnoses Deep vein thrombosis (DVT) of both lower extremities, unspecified chronicity, unspecified vein (HCC) 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) Procedures US DVT LOWER BILATERAL DUP-SCAN XTR VEINS COMPLETE BILATERAL STUDY Yessica Tinoco APRN.CNP [address] [place] [address] Us Imaging Referral ID Status Reason Start Date Expiration Date Visits Requested Visits Authorized [id number] Pending Review Auto-Generat ed Referral 10/14/2022 10/30/2023 1 1 [facility] for referral (narrative)* Outpatient Procedure (Routine) - Authorized Specialty Diagnoses / Procedures Referred By Contac t Referred To Contact [facility] [place] Diagnoses Deep vein thrombosis (DVT) of both lower extremities, unspecified chronicity, unspecified vein (HCC) Localized edema Procedures US LEG VEIN DVT UNL VAS LAB DUP-SCAN XTR VEINS UNILATERAL/LIMITED STUDY Yessica Tinoco APRN.CNP [address] [place] [address] [place] [address] Referral ID Status Reason Start Date Expiration Date Visits Requested Visits Authorized [id number] Authorized Auto-Generat ed Referral 10/15/2022 10/01/2023 1 1 [facility] for referral (narrative)* Outpatient Procedure (Routine) - Authorized Specialty Diagnoses / Procedures Referred By Contac t Referred To Contact [facility] [place] Diagnoses Bruit of right carotid artery Procedures US CAROTID ARTERIES [facility]ANO VAS LAB DUPLEX SCAN EXTRACRANIAL ART COMPL BI STUDY Terry Cifuentes MD [address] [place] [address] [facility] [address] [address] Referral ID Status Reason Start Date Expiration Date Visits Requested Visits Authorized [id number] Authorized Auto-Generat ed Referral 11/03/2022 11/03/2023 1 1 * Outpatient Procedure (Routine) - Pending Review Specialty Diagnoses / Procedures Referred By Contac t Referred To Contact [facility] [place] Diagnoses 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) Procedures US LEG VEIN DVT UNL VAS LAB DUP-SCAN XTR VEINS UNILATERAL/LIMITED STUDY Terry Cifuentes MD [address] [place] [address] [address] Referral ID Status Reason Start Date Expiration Date Visits Requested Visits Authorized [id number] Pending Review Auto-Generat ed Referral 11/03/2022 11/03/2023 1 1 [facility] for referral (narrative)* Diagnostic Procedure Only (Routine) - Pending Review Specialty Diagnoses / Procedures Referred By Contac t Referred To Contact XR IMAGING Diagnoses Pain in left arm Procedures XR SHOULDER GENERAL 3V OR MORE AP/TRUE AP/OTHER LEFT RADEX SHOULDER COMPLETE MINIMUM 2 VIEWS Michael Christian MD [address] [facility] [place] [address] Xr Imaging [facility] Referral ID Status Reason Start Date Expiration Date Visits Requested Visits Authorized [id number] Pending Review Auto-Generat ed Referral 06/11/2023 07/10/2024 1 1 [facility] for referral (narrative)* Consultation (Routine) - Pending Review Specialty Diagnoses / Procedures Referred By Contac t Referred To Contact Colon and Rectal Surgery Diagnoses Rectal bleeding History of rectal cancer Colorectal anastomotic stricture Procedures [place] OFFICE/OUTPATIENT NEW HIGH MDM 60 MINUTES Sabrina Muñiz MD [address] [facility] [address] [place] [address] Ana Cheung [address] [place] [address] Referral ID Status Reason Start Date Expiration Date Visits Requested Visits Authorized [id number] Pending Review Specialty Services Required 07/15/2023 07/14/2024 1 1 [facility] for referral (narrative)No reason for referral [facility]: Reason for visit Narrative* Diagnostic Procedure Only (Routine) - Closed Specialty Diagnoses / Procedures Referred By Contac t Referred To Contact XR IMAGING Diagnoses Pain in left arm Procedures XR SHOULDER GENERAL 3V OR MORE AP/TRUE AP/OTHER LEFT RADEX SHOULDER COMPLETE MINIMUM 2 VIEWS Michael Christian MD [address] [place] [address] Xr Imaging [place] [address] Referral ID Status Reason Start Date Expiration Date V isits Requested Visits Authorized [id number] Closed Auto-Generate d Referral 06/11/2023 07/10/2024 1 1 [facility] for visit Narrative* Imaging (Routine) - Authorized Specialty Diagnoses / Procedures Referred By Contac t Referred To Contact Radiology Diagnoses Acoustic neuroma (Multi) Procedures MR IAC w [place] [address] [address] Department of Otolaryngology, Head [place] [address] Phone: tel: fax: Referral ID Status Reason Start Date Expiration Date Visits Requested Visits Authorized [id number] Authorized Perform Procedure 04/01/2023 03/31/2024 1 1 [facility] Work Phone: Chief Complaint NPV6-month [...] FoundDocuments on File Type Date Recorded 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 Advance Directive(s) 02/04/2022 10:42 AM [...] Documents on File Type Date Recorded 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 Advance Directive(s) 04/29/2021 1:55 PM Advance Directive(s) 03/20/2021 8:14 AM Advance Directive(s) 03/12/2021 12:52 PM Documents on File Type Date Recorded 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 Advance Directive(s) 04/29/2021 1:55 PM Advance Directive(s) 03/20/2021 8:14 AM Advance Directive(s) 03/12/2021 12:52 PM Advance Directive Response Recorded Date/ Time Advance Directives No December 11:52pm Living Will Yes April 07 7:04pm Power of Search Engine Marketing Strategist Yes April 07, 2019 7:04pm Advance Directive Response Recorded Date/ Time Advance Directives No December 10:52pm Living Will Yes April 07 6:04pm Power of Search Engine Marketing Strategist Yes April 07, 2019 6:04pm Latest Code Status on File Code Status Date Activated Date Inactivated Comments Full Code 01/30/2022 7:09 PM Advance Directive Response Recorded Date/ Time Name of Medical Power of Search Engine Marketing Strategist Marilu February 01, 2022 2:25pm Advance Directives No December 10:52pm Living Will Yes February 01 2:25pm Power of Search Engine Marketing Strategist Yes February 01, 2022 2:25pm Latest Code Status on File Code Status Date Activated Date Inactivated Comments Full Code 01/30/2022 7:09 PM 02/01/2022 5:30 PM Documents on File Type Date Recorded 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 Advance Directive(s) 02/04/2022 10:42 AM Latest Code Status on File Code Status Date Activated Date Inactivated Comments Full Code 02/04/2022 2:47 PM Full Code Order Discussed With: Patient Full Code 01/30/2022 7:09 PM 02/01/2022 5:30 PM Advance Directive Response Recorded Date/ Time Name of Medical Power of Search Engine Marketing Strategist Marilu February 01, 2022 2:25pm Name of Medical Power of Search Engine Marketing Strategist February 27, 2022 4:07am Advance Directives No December 10:52pm Living Will Yes February 27, 2 022 4:07am Power of Search Engine Marketing Strategist Yes February 27, 2022 4:07am Advance Directive Response Recorded Date/ Time Name of Medical Power of Search Engine Marketing Strategist Marilu February 01, 2022 2:25pm Name of Medical Power of Search Engine Marketing Strategist February 27, 2022 4:07am Name of Medical Power of Search Engine Marketing Strategist Marilu Luna March 01, 2022 8:23pm Advance Directives No December 10:52pm Living Will Yes March 01 8:23pm Power of Search Engine Marketing Strategist Yes March 01, 2 023 8:23pm Latest [...] July 17, 2022 6 :39pm Power of Search Engine Marketing Strategist No July 17, 2022 6:39pm Advance Directive Response Recorded Date/ Time Advance Directives No December 11:52pm Living Will No June 11, 2023 6:49pm Power of Search Engine Marketing Strategist No June 10 6:49pm Date Activated Date [...] 072023 8:08am Name of Medical Power of Search Engine Marketing Strategist Marilu July 08, 2023 8:08am Advance Directives Yes July 08, 2023 8:08am Living Will Yes July 08, 2023 8: 08am Power of Search Engine Marketing Strategist Yes July 08, 2023 8:08am Advance Directive Response Recorded Date/ Time Living Will No April 25 11:35am Do you have a Healthcare Power of Search Engine Marketing Strategist? No April 25, 2024 11:35am Advance Directives Yes July 27 2:08pm Advance Directive Response Recorded Date/ Time Advance Directives Yes July 27 2:08pm Reason for Referral Specialty Diagnoses / Procedures Referred By Contac t Referred To Contact Oncology Diagnoses Rectal malignant neoplasm (HCC) Procedures CONSULT TO ONCOLOGY OFFICE/OUTPATIENT [facility] 60-74 MINUTES Caty Bowens MD [address] [place] [id number] Referral ID Status Reason Start Date Expiration Date Visits Requested Visits Authorized [id number] Authorized PCP Requested Referral 06/05/2021 05/29/2022 1 1 Specialty Diagnoses / Procedures Referred By Contac t Referred To Contact MR IMAGING Diagnoses Rectal malignant neoplasm (HCC) Anal squamous cell carcinoma (HCC) Procedures MRI RECTUM WO/W IVCON MRI PELVIS W/O & W/CONTRAST MATERIAL Alexia Rao, NAVNEET.CUP MACHINE OPERATOR [address] [place] [address] Mr Imaging Referral ID Status Reason Start Date Expiration Date Visits Requested Visits Authorized [id number] Pending Review Auto-Generat ed Referral 07/18/2021 08/17/2022 1 1 Referral ID Status Reason Start Date Expiration Date V isits Requested Visits Authorized [id number] Closed Auto-Generate d Referral 07/18/2021 08/17/2022 1 1 Specialty Diagnoses / Procedures Referred By Contac t Referred To Contact MR IMAGING Diagnoses Malignant neoplasm of rectum (HCC) Procedures MRI RECTUM WO/W IVCON MRI PELVIS W/O & W/CONTRAST MATERIAL Ramiro Cheung MD [address] [address] Mr Imaging Referral ID Status Reason Start Date Expiration Date Visits Requested Visits Authorized [id number] Pending Review Auto-Generat ed Referral 09/25/2021 10/25/2022 1 1 Specialty Diagnoses / Procedures Referred By Contac t Referred To Contact Cardiology Diagnoses Pre-op evaluation 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 Bilateral carotid artery stenosis Procedures CONSULT TO CARDIOLOGY OFFICE/OUTPATIENT [facility] 60-74 MINUTES Kristel John PA-C [address] [place] [address] Referral ID Status Reason Start Date Expiration Date Visits Requested Visits Authorized [id number] Authorized PCP Requested Referral 01/07/2022 01/07/2023 1 1 Specialty Diagnoses / Procedures Referred By Contac t Referred To Contact CT IMAGING Diagnoses Rectal cancer (HCC) Malignant neoplasm of rectum (HCC) Procedures CT CHEST W IVCON DIAGNOSTIC COMPUTED TOMOGRAPHY THORAX W/CONTRAST Ramiro Cheung MD [address] [place] [address] Ct Imaging Referral ID Status Reason Start Date Expiration Date V isits Requested Visits Authorized [id number] Closed Auto-Generate d Referral 12/17/2021 01/16/2023 1 1 Specialty Diagnoses / Procedures Referred By Contac t Referred To Contact CT IMAGING Diagnoses Rectal cancer (HCC) Malignant neoplasm of rectum (HCC) Procedures CT ABD/PEL W IVCON CT ABD & PELVIS W/CONTRAST Ramiro Cheung MD [address] [place] [address] Ct Imaging Referral ID Status Reason Start Date Expiration Date V isits Requested Visits Authorized [id number] Closed Auto-Generate d Referral 12/17/2021 01/16/2023 1 1 Specialty Diagnoses / Procedures Referred By Contac t Referred To Contact Radiology Diagnoses Acoustic neuroma (CMS/HCC) Procedures MR IAC w [place] [address] [address] Department [place] [address] Referral ID Status Reason Start Date Expiration Date Visits Requested Visits Authorized [id number] Pending Review Perform Procedure 03/05/2023 03/04/2024 1 1 Specialty Diagnoses / Procedures Referred By Contac t Referred To Contact Orthopedics Diagnoses Left arm pain Procedures CONSULT TO ORTHOPAEDICS OFFICE/OUTPATIENT [facility] 60 MINUTES Norm Parker, ANALYTICS INTERN.CUP MACHINE OPERATOR [address] [place] [address] Referral ID Status Reason Start Date Expiration Date Visits Requested Visits Authorized [id number] Authorized PCP Requested Referral 04/23/2023 04/20/2024 1 1 Specialty Diagnoses / Procedures Referred By Contac t Referred To Contact Podiatry Diagnoses Ingrown nail of great toe Procedures CONSULT TO PODIATRY OFFICE/OUTPATIENT [facility] 60 MINUTES Mary Anne Alejandro, ANALYTICS INTERN.CUP MACHINE OPERATOR [address] [place] [address] Referral ID Status Reason Start Date Expiration Date Visits Requested Visits Authorized [id number] Authorized PCP Requested Referral 05/31/2023 05/30/2024 1 1 Specialty Diagnoses / Procedures Referred By Contac t Referred To Contact Diagnoses History of rectal cancer Procedures REFER TO PACC - PRE ANESTHESIA CONSULTATION CLINIC OFFICE/OUTPATIENT [facility] 60 MINUTES Ramiro Cheung MD [address] [place] [address] Referral ID Status Reason Start Date Expiration Date Visits Requested Visits Authorized [id number] Authorized PCP Requested Referral 08/03/2023 08/02/2024 1 1 Specialty Diagnoses / Procedures Referred By Contac t Referred To Contact MR IMAGING Diagnoses History of rectal cancer Procedures MRI RECTUM WO/W IVCON MRI PELVIS W/O & W/CONTRAST MATERIAL Ramiro Cheung MD [address] [place] [address] Mr Imaging [place] [address] Referral ID Status Reason Start Date Expiration Date Visits Requested Visits Authorized [id number] Authorized Auto-Generat ed Referral 08/03/2023 09/01/2024 1 1 Specialty Diagnoses / Procedures Referred By Contac t Referred To [facility] Diagnoses History of rectal cancer Procedures ECG COMPLETE ECG ROUTINE ECG W/LEAST 12 LDS W/I&R Ramiro Cheung MD [address] [place] [address] [facility] [address] [address] Referral ID Status Reason Start Date Expiration Date Visits Requested Visits Authorized [id number] Pending Review Auto-Generat ed Referral 08/03/2023 08/02/2024 1 1 Specialty Diagnoses / Procedures Referred By Karen lira Referred To Contact Diagnoses History of rectal cancer Procedures CONSULT TO [facility]/OUTPATIENT [facility] 60 MINUTES Ramiro Cheung MD [address] [place] [address] Referral ID Status Reason Start Date Expiration Date Visits Requested Visits Authorized [id number] Authorized PCP Requested Referral 08/03/2023 08/02/2024 1 1 Chief Complaint and Reason for Visit Chief Complaint LINE PLACEMENT Chief Complaint cardiac clearance S/P CABG PRE OP Reason for Visit Dilated aortic root 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 pectoris Bilateral carotid artery stenosis Dyslipidemia Essential hypertension Peripheral vascular disease Chief Complaint cardiac clearance S/P CABG PRE OP FEVER Reason for Visit Dilated aortic root 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 pectoris Bilateral carotid artery stenosis Dyslipidemia Essential hypertension Peripheral vascular disease Chief Complaint cardiac clearance S/P CABG PRE OP FEVER Amb Documentation rectal bleed Reason for Visit Dilated aortic root 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 pectoris Bilateral carotid artery stenosis Dyslipidemia Essential hypertension Peripheral vascular disease Chief Complaint cardiac clearance S/P CABG PRE OP FEVER Amb Documentation rectal bleed SOB Reason for Visit Dilated aortic root 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 pectoris Bilateral carotid artery stenosis Dyslipidemia Essential hypertension Peripheral vascular disease Chief Complaint cardiac clearance S/P CABG PRE OP FEVER Amb Documentation rectal bleed SOB CS/PVD Amb Documentation Reason for Visit Dilated aortic root 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 pectoris Bilateral carotid artery stenosis Dyslipidemia Essential hypertension Peripheral vascular disease Chief Complaint 9 M FU CONSULT-SUBLAVIAN STEAL SYNDROME VASCULAR DISEASE Reason for Visit Dilated aortic root 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 pectoris Bilateral carotid artery stenosis Dyslipidemia Essential hypertension Peripheral vascular disease 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 Claudication of left lower extremity 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 Chief Complaint 9 M FU CONSULT-SUBLAVIAN STEAL SYNDROME VASCULAR DISEASE ASSULT Reason for Visit Dilated aortic root 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 pectoris Bilateral carotid artery stenosis Dyslipidemia Essential hypertension Peripheral vascular disease 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 Claudication of left lower extremity 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 Chief Complaint 9 M FU CONSULT-SUBLAVIAN STEAL SYNDROME VASCULAR DISEASE ASSULT Atherosclerosis of platinum arteries of extremities Reason for Visit Dilated aortic root 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 pectoris Bilateral carotid [...] 2024 10:38am Atherosclerotic heart diseas e of platinum coronary artery without angina pectoris November 29, [...] section and content) DATE CREATED AUTHOR 02/11/2021 [employer] DATE CREATED AUTHOR AUTHOR'S ORGANIZ ATION 02/16/2021 [facility] DATE CREATED AUTHOR AUTHOR'S ORGANIZ ATION 12/07/2022 [facility] DATE CREATED AUTHOR AUTHOR'S ORGANIZ ATION 07/19/2023 [facility] DATE CREATED AUTHOR AUTHOR'S ORGANIZ ATION 09/24/2023 [facility] DATE CREATED AUTHOR AUTHOR'S ORGANIZ ATION 04/05/2024 [facility] DATE CREATED AUTHOR AUTHOR'S ORGANIZ ATION 12/27/2024 [facility] DATE CREATED AUTHOR AUTHOR'S ORGANIZ ATION 01/03/2025 [facility] Source Comments (unrecognize d section and content) In the event this informatio n is protected by the Federal Confidentiality of Alcohol and Drug Abuse Patient Records regulations: The Federal rules restrict any use of the information to criminally investigate or prosecute any alcohol or drug abuse patient.[facility] the event this information is protected by the Federal Confidentiality of Alcohol and Drug Abuse Patient Records regulations: The Federal rules restrict any use of the information to criminally investigate or prosecute any alcohol or drug abuse patient.[facility] HospitalIn the event this information is protected by the Federal Confidentiality of Alcohol and Drug Abuse Patient Records regulations: The Federal rules restrict any use of the information to criminally investigate or prosecute any alcohol or drug abuse patient.[facility] HospitalIn the event this information is protected by the Federal Confidentiality of Alcohol and Drug Abuse Patient Records regulations: The Federal rules restrict any use of the information to criminally investigate or prosecute any alcohol or drug abuse patient.[facility] HospitalIn the event this information is protected by the Federal Confidentiality of Alcohol and Drug Abuse Patient Records regulations: The Federal rules restrict any use of the information to criminally investigate or prosecute any alcohol or drug abuse patient.[facility] HospitalIn the event this information is protected by the Federal Confidentiality of Alcohol and Drug Abuse Patient Records regulations: The Federal rules restrict any use of the information to criminally investigate or prosecute any alcohol or drug abuse patient.[facility] HospitalIn the event this information is protected by the Federal Confidentiality of Alcohol and Drug Abuse Patient Records regulations: The Federal rules restrict any use of the information to criminally investigate or prosecute any alcohol or drug abuse patient.[facility] HospitalIn the event this information is protected by the Federal Confidentiality of Alcohol and Drug Abuse Patient Records regulations: The Federal rules restrict any use of the information to criminally investigate or prosecute any alcohol or drug abuse patient.[facility] HospitalIn the event this information is protected by the Federal Confidentiality of Alcohol and Drug Abuse Patient Records regulations: The Federal rules restrict any use of the information to criminally investigate or prosecute any alcohol or drug abuse patient.[facility] HospitalIn the event this information is protected by the Federal Confidentiality of Alcohol and Drug Abuse Patient Records regulations: The Federal rules restrict any use of the information to criminally investigate or prosecute any alcohol or drug abuse patient.[facility] HospitalIn the event this information is protected by the Federal Confidentiality of Alcohol and Drug Abuse Patient Records regulations: The Federal rules restrict any use of the information to criminally investigate or prosecute any alcohol or drug abuse patient.[facility] HospitalIn the event this information is protected by the Federal Confidentiality of Alcohol and Drug Abuse Patient Records regulations: The Federal rules restrict any use of the information to criminally investigate or prosecute any alcohol or drug abuse patient.[facility] HospitalIn the event this information is protected by the Federal Confidentiality of Alcohol and Drug Abuse Patient Records regulations: The Federal rules restrict any use of the information to criminally investigate or prosecute any alcohol or drug abuse patient.[facility] HospitalIn the event this information is protected by the Federal Confidentiality of Alcohol and Drug Abuse Patient Records regulations: The Federal rules restrict any use of the information to criminally investigate or prosecute any alcohol or drug abuse patient.[facility] HospitalIn the event this information is protected by the Federal Confidentiality of Alcohol and Drug Abuse Patient Records regulations: The Federal rules restrict any use of the information to criminally investigate or prosecute any alcohol or drug abuse patient.[facility] HospitalIn the event this information is protected by the Federal Confidentiality of Alcohol and Drug Abuse Patient Records regulations: The Federal rules restrict any use of the information to criminally investigate or prosecute any alcohol or drug abuse patient.[facility] HospitalIn the event this information is protected by the Federal Confidentiality of Alcohol and Drug Abuse Patient Records regulations: The Federal rules restrict any use of the information to criminally investigate or prosecute any alcohol or drug abuse patient.[facility] HospitalIn the event this information is protected by the Federal Confidentiality of Alcohol and Drug Abuse Patient Records regulations: The Federal rules restrict any use of the information to criminally investigate or prosecute any alcohol or drug abuse patient.[facility] HospitalIn the event this information is protected by the Federal Confidentiality of Alcohol and Drug Abuse Patient Records regulations: The Federal rules restrict any use of the information to criminally investigate or prosecute any alcohol or drug abuse patient.[facility] HospitalIn the event this information is protected by the Federal Confidentiality of Alcohol and Drug Abuse Patient Records regulations: The Federal rules restrict any use of the information to criminally investigate or prosecute any alcohol or drug abuse patient.[facility] HospitalIn the event this information is protected by the Federal Confidentiality of Alcohol and Drug Abuse Patient Records regulations: The Federal rules restrict any use of the information to criminally investigate or prosecute any alcohol or drug abuse patient.[facility] HospitalIn the event this information is protected by the Federal Confidentiality of Alcohol and Drug Abuse Patient Records regulations: The Federal rules restrict any use of the information to criminally investigate or prosecute any alcohol or drug abuse patient.[facility] HospitalIn the event this information is protected by the Federal Confidentiality of Alcohol and Drug Abuse Patient Records regulations: The Federal rules restrict any use of the information to criminally investigate or prosecute any alcohol or drug abuse patient.[facility] HospitalIn the event this information is protected by the Federal Confidentiality of Alcohol and Drug Abuse Patient Records regulations: The Federal rules restrict any use of the information to criminally investigate or prosecute any alcohol or drug abuse patient.[facility] HospitalIn the event this information is protected by the Federal Confidentiality of Alcohol and Drug Abuse Patient Records regulations: The Federal rules restrict any use of the information to criminally investigate or prosecute any alcohol or drug abuse patient.[facility] HospitalIn the event this information is protected by the Federal Confidentiality of Alcohol and Drug Abuse Patient Records regulations: The Federal rules restrict any use of the information to criminally investigate or prosecute any alcohol or drug abuse patient.[facility] HospitalIn the event this information is protected by the Federal Confidentiality of Alcohol and Drug Abuse Patient Records regulations: The Federal rules restrict any use of the information to criminally investigate or prosecute any alcohol or drug abuse patient.[facility] HospitalIn the event this information is protected by the Federal Confidentiality of Alcohol and Drug Abuse Patient Records regulations: The Federal rules restrict any use of the information to criminally investigate or prosecute any alcohol or drug abuse patient.[facility] HospitalIn the event this information is protected by the Federal Confidentiality of Alcohol and Drug Abuse Patient Records regulations: The Federal rules restrict any use of the information to criminally investigate or prosecute any alcohol or drug abuse patient.[facility] HospitalIn the event this information is protected by the Federal Confidentiality of Alcohol and Drug Abuse Patient Records regulations: The Federal rules restrict any use of the information to criminally investigate or prosecute any alcohol or drug abuse patient.[facility] HospitalIn the event this information is protected by the Federal Confidentiality of Alcohol and Drug Abuse Patient Records regulations: The Federal rules restrict any use of the information to criminally investigate or prosecute any alcohol or drug abuse patient.[facility] HospitalIn the event this information is protected by the Federal Confidentiality of Alcohol and Drug Abuse Patient Records regulations: The Federal rules restrict any use of the information to criminally investigate or prosecute any alcohol or drug abuse patient.[facility] HospitalIn the event this information is protected by the Federal Confidentiality of Alcohol and Drug Abuse Patient Records regulations: The Federal rules restrict any use of the information to criminally investigate or prosecute any alcohol or drug abuse patient.[facility] HospitalIn the event this information is protected by the Federal Confidentiality of Alcohol and Drug Abuse Patient Records regulations: The Federal rules restrict any use of the information to criminally investigate or prosecute any alcohol or drug abuse patient.[facility] HospitalIn the event this information is protected by the Federal Confidentiality of Alcohol and Drug Abuse Patient Records regulations: The Federal rules restrict any use of the information to criminally investigate or prosecute any alcohol or drug abuse patient.[facility] HospitalIn the event this information is protected by the Federal Confidentiality of Alcohol and Drug Abuse Patient Records regulations: The Federal rules restrict any use of the information to criminally investigate or prosecute any alcohol or drug abuse patient.[facility] HospitalIn the event this information is protected by the Federal Confidentiality of Alcohol and Drug Abuse Patient Records regulations: The Federal rules restrict any use of the information to criminally investigate or prosecute any alcohol or drug abuse patient.[facility] HospitalIn the event this information is protected by the Federal Confidentiality of Alcohol and Drug Abuse Patient Records regulations: The Federal rules restrict any use of the information to criminally investigate or prosecute any alcohol or drug abuse patient.[facility] HospitalIn the event this information is protected by the Federal Confidentiality of Alcohol and Drug Abuse Patient Records regulations: The Federal rules restrict any use of the information to criminally investigate or prosecute any alcohol or drug abuse patient.[facility] HospitalIn the event this information is protected by the Federal Confidentiality of Alcohol and Drug Abuse Patient Records regulations: The Federal rules restrict any use of the information to criminally investigate or prosecute any alcohol or drug abuse patient.[facility] HospitalIn the event this information is protected by the Federal Confidentiality of Alcohol and Drug Abuse Patient Records regulations: The Federal rules restrict any use of the information to criminally investigate or prosecute any alcohol or drug abuse patient.[facility] HospitalIn the event this information is protected by the Federal Confidentiality of Alcohol and Drug Abuse Patient Records regulations: The Federal rules restrict any use of the information to criminally investigate or prosecute any alcohol or drug abuse patient.[facility] HospitalIn the event this information is protected by the Federal Confidentiality of Alcohol and Drug Abuse Patient Records regulations: The Federal rules restrict any use of the information to criminally investigate or prosecute any alcohol or drug abuse patient.[facility] HospitalIn the event this information is protected by the Federal Confidentiality of Alcohol and Drug Abuse Patient Records regulations: The Federal rules restrict any use of the information to criminally investigate or prosecute any alcohol or drug abuse patient.[facility] HospitalIn the event this information is protected by the Federal Confidentiality of Alcohol and Drug Abuse Patient Records regulations: The Federal rules restrict any use of the information to criminally investigate or prosecute any alcohol or drug abuse patient.[facility] HospitalIn the event this information is protected by the Federal Confidentiality of Alcohol and Drug Abuse Patient Records regulations: The Federal rules restrict any use of the information to criminally investigate or prosecute any alcohol or drug abuse patient.[facility] HospitalIn the event this information is protected by the Federal Confidentiality of Alcohol and Drug Abuse Patient Records regulations: The Federal rules restrict any use of the information to criminally investigate or prosecute any alcohol or drug abuse patient.[facility] HospitalIn the event this information is protected by the Federal Confidentiality of Alcohol and Drug Abuse Patient Records regulations: The Federal rules restrict any use of the information to criminally investigate or prosecute any alcohol or drug abuse patient.[facility] HospitalIn the event this information is protected by the Federal Confidentiality of Alcohol and Drug Abuse Patient Records regulations: The Federal rules restrict any use of the information to criminally investigate or prosecute any alcohol or drug abuse patient.[facility] HospitalIn the event this information is protected by the Federal Confidentiality of Alcohol and Drug Abuse Patient Records regulations: The Federal rules restrict any use of the information to criminally investigate or prosecute any alcohol or drug abuse patient.[facility] HospitalIn the event this information is protected by the Federal Confidentiality of Alcohol and Drug Abuse Patient Records regulations: The Federal rules restrict any use of the information to criminally investigate or prosecute any alcohol or drug abuse patient.[facility] HospitalIn the event this information is protected by the Federal Confidentiality of Alcohol and Drug Abuse Patient Records regulations: The Federal rules restrict any use of the information to criminally investigate or prosecute any alcohol or drug abuse patient.[facility] HospitalIn the event this information is protected by the Federal Confidentiality of Alcohol and Drug Abuse Patient Records regulations: The Federal rules restrict any use of the information to criminally investigate or prosecute any alcohol or drug abuse patient.[facility] HospitalIn the event this information is protected by the Federal Confidentiality of Alcohol and Drug Abuse Patient Records regulations: The Federal rules restrict any use of the information to criminally investigate or prosecute any alcohol or drug abuse patient.[facility] HospitalIn the event this information is protected by the Federal Confidentiality of Alcohol and Drug Abuse Patient Records regulations: The Federal rules restrict any use of the information to criminally investigate or prosecute any alcohol or drug abuse patient.[facility] HospitalIn the event this information is protected by the Federal Confidentiality of Alcohol and Drug Abuse Patient Records regulations: The Federal rules restrict any use of the information to criminally investigate or prosecute any alcohol or drug abuse patient.[facility] HospitalIn the event this information is protected by the Federal Confidentiality of Alcohol and Drug Abuse Patient Records regulations: The Federal rules restrict any use of the information to criminally investigate or prosecute any alcohol or drug abuse patient.[facility] HospitalIn the event this information is protected by the Federal Confidentiality of Alcohol and Drug Abuse Patient Records regulations: The Federal rules restrict any use of the information to criminally investigate or prosecute any alcohol or drug abuse patient.[facility] HospitalIn the event this information is protected by the Federal Confidentiality of Alcohol and Drug Abuse Patient Records regulations: The Federal rules restrict any use of the information to criminally investigate or prosecute any alcohol or drug abuse patient.[facility] HospitalIn the event this information is protected by the Federal Confidentiality of Alcohol and Drug Abuse Patient Records regulations: The Federal rules restrict any use of the information to criminally investigate or prosecute any alcohol or drug abuse patient.[facility] HospitalIn the event this information is protected by the Federal Confidentiality of Alcohol and Drug Abuse Patient Records regulations: The Federal rules restrict any use of the information to criminally investigate or prosecute any alcohol or drug abuse patient.[facility] HospitalIn the event this information is protected by the Federal Confidentiality of Alcohol and Drug Abuse Patient Records regulations: The Federal rules restrict any use of the information to criminally investigate or prosecute any alcohol or drug abuse patient.[facility] HospitalIn the event this information is protected by the Federal Confidentiality of Alcohol and Drug Abuse Patient Records regulations: The Federal rules restrict any use of the information to criminally investigate or prosecute any alcohol or drug abuse patient.[facility] HospitalIn the event this information is protected by the Federal Confidentiality of Alcohol and Drug Abuse Patient Records regulations: The Federal rules restrict any use of the information to criminally investigate or prosecute any alcohol or drug abuse patient.[facility] HospitalIn the event this information is protected by the Federal Confidentiality of Alcohol and Drug Abuse Patient Records regulations: The Federal rules restrict any use of the information to criminally investigate or prosecute any alcohol or drug abuse patient.[facility] HospitalIn the event this information is protected by the Federal Confidentiality of Alcohol and Drug Abuse Patient Records regulations: The Federal rules restrict any use of the information to criminally investigate or prosecute any alcohol or drug abuse patient.[facility] HospitalIn the event this information is protected by the Federal Confidentiality of Alcohol and Drug Abuse Patient Records regulations: The Federal rules restrict any use of the information to criminally investigate or prosecute any alcohol or drug abuse patient.[facility] HospitalIn the event this information is protected by the Federal Confidentiality of Alcohol and Drug Abuse Patient Records regulations: The Federal rules restrict any use of the information to criminally investigate or prosecute any alcohol or drug abuse patient.[facility] HospitalIn the event this information is protected by the Federal Confidentiality of Alcohol and Drug Abuse Patient Records regulations: The Federal rules restrict any use of the information to criminally investigate or prosecute any alcohol or drug abuse patient.[facility] HospitalIn the event this information is protected by the Federal Confidentiality of Alcohol and Drug Abuse Patient Records regulations: The Federal rules restrict any use of the information to criminally investigate or prosecute any alcohol or drug abuse patient.[facility] HospitalIn the event this information is protected by the Federal Confidentiality of Alcohol and Drug Abuse Patient Records regulations: The Federal rules restrict any use of the information to criminally investigate or prosecute any alcohol or drug abuse patient.[facility] HospitalIn the event this information is protected by the Federal Confidentiality of Alcohol and Drug Abuse Patient Records regulations: The Federal rules restrict any use of the information to criminally investigate or prosecute any alcohol or drug abuse patient.[facility] HospitalIn the event this information is protected by the Federal Confidentiality of Alcohol and Drug Abuse Patient Records regulations: The Federal rules restrict any use of the information to criminally investigate or prosecute any alcohol or drug abuse patient.[facility] HospitalIn the event this information is protected by the Federal Confidentiality of Alcohol and Drug Abuse Patient Records regulations: The Federal rules restrict any use of the information to criminally investigate or prosecute any alcohol or drug abuse patient.[facility] HospitalIn the event this information is protected by the Federal Confidentiality of Alcohol and Drug Abuse Patient Records regulations: The Federal rules restrict any use of the information to criminally investigate or prosecute any alcohol or drug abuse patient.[facility] HospitalIn the event this information is protected by the Federal Confidentiality of Alcohol and Drug Abuse Patient Records regulations: The Federal rules restrict any use of the information to criminally investigate or prosecute any alcohol or drug abuse patient.[facility] HospitalIn the event this information is protected by the Federal Confidentiality of Alcohol and Drug Abuse Patient Records regulations: The Federal rules restrict any use of the information to criminally investigate or prosecute any alcohol or drug abuse patient.[facility] HospitalIn the event this information is protected by the Federal Confidentiality of Alcohol and Drug Abuse Patient Records regulations: The Federal rules restrict any use of the information to criminally investigate or prosecute any alcohol or drug abuse patient.[facility] HospitalIn the event this information is protected by the Federal Confidentiality of Alcohol and Drug Abuse Patient Records regulations: The Federal rules restrict any use of the information to criminally investigate or prosecute any alcohol or drug abuse patient.[facility] HospitalIn the event this information is protected by the Federal Confidentiality of Alcohol and Drug Abuse Patient Records regulations: The Federal rules restrict any use of the information to criminally investigate or prosecute any alcohol or drug abuse patient.[facility] HospitalIn the event this information is protected by the Federal Confidentiality of Alcohol and Drug Abuse Patient Records regulations: The Federal rules restrict any use of the information to criminally investigate or prosecute any alcohol or drug abuse patient.[facility] HospitalIn the event this information is protected by the Federal Confidentiality of Alcohol and Drug Abuse Patient Records regulations: The Federal rules restrict any use of the information to criminally investigate or prosecute any alcohol or drug abuse patient.[facility] HospitalIn the event this information is protected by the Federal Confidentiality of Alcohol and Drug Abuse Patient Records regulations: The Federal rules restrict any use of the information to criminally investigate or prosecute any alcohol or drug abuse patient.[facility] HospitalIn the event this information is protected by the Federal Confidentiality of Alcohol and Drug Abuse Patient Records regulations: The Federal rules restrict any use of the information to criminally investigate or prosecute any alcohol or drug abuse patient.[facility] HospitalIn the event this information is protected by the Federal Confidentiality of Alcohol and Drug Abuse Patient Records regulations: The Federal rules restrict any use of the information to criminally investigate or prosecute any alcohol or drug abuse patient.[facility] HospitalIn the event this information is protected by the Federal Confidentiality of Alcohol and Drug Abuse Patient Records regulations: The Federal rules restrict any use of the information to criminally investigate or prosecute any alcohol or drug abuse patient.[facility] HospitalIn the event this information is protected by the Federal Confidentiality of Alcohol and Drug Abuse Patient Records regulations: The Federal rules restrict any use of the information to criminally investigate or prosecute any alcohol or drug abuse patient.[facility] HospitalIn the event this information is protected by the Federal Confidentiality of Alcohol and Drug Abuse Patient Records regulations: The Federal rules restrict any use of the information to criminally investigate or prosecute any alcohol or drug abuse patient.[facility] HospitalIn the event this information is protected by the Federal Confidentiality of Alcohol and Drug Abuse Patient Records regulations: The Federal rules restrict any use of the information to criminally investigate or prosecute any alcohol or drug abuse patient.[facility] HospitalIn the event this information is protected by the Federal Confidentiality of Alcohol and Drug Abuse Patient Records regulations: The Federal rules restrict any use of the information to criminally investigate or prosecute any alcohol or drug abuse patient.[facility] HospitalIn the event this information is protected by the Federal Confidentiality of Alcohol and Drug Abuse Patient Records regulations: The Federal rules restrict any use of the information to criminally investigate or prosecute any alcohol or drug abuse patient.[facility] HospitalIn the event this information is protected by the Federal Confidentiality of Alcohol and Drug Abuse Patient Records regulations: The Federal rules restrict any use of the information to criminally investigate or prosecute any alcohol or drug abuse patient.[facility] HospitalIn the event this information is protected by the Federal Confidentiality of Alcohol and Drug Abuse Patient Records regulations: The Federal rules restrict any use of the information to criminally investigate or prosecute any alcohol or drug abuse patient.[facility] HospitalIn the event this information is protected by the Federal Confidentiality of Alcohol and Drug Abuse Patient Records regulations: The Federal rules restrict any use of the information to criminally investigate or prosecute any alcohol or drug abuse patient.[facility] HospitalIn the event this information is protected by the Federal Confidentiality of Alcohol and Drug Abuse Patient Records regulations: The Federal rules restrict any use of the information to criminally investigate or prosecute any alcohol or drug abuse patient.[facility] HospitalIn the event this information is protected by the Federal Confidentiality of Alcohol and Drug Abuse Patient Records regulations: The Federal rules restrict any use of the information to criminally investigate or prosecute any alcohol or drug abuse patient.[facility] HospitalIn the event this information is protected by the Federal Confidentiality of Alcohol and Drug Abuse Patient Records regulations: The Federal rules restrict any use of the information to criminally investigate or prosecute any alcohol or drug abuse patient.[facility] HospitalIn the event this information is protected by the Federal Confidentiality of Alcohol and Drug Abuse Patient Records regulations: The Federal rules restrict any use of the information to criminally investigate or prosecute any alcohol or drug abuse patient.[facility] HospitalIn the event this information is protected by the Federal Confidentiality of Alcohol and Drug Abuse Patient Records regulations: The Federal rules restrict any use of the information to criminally investigate or prosecute any alcohol or drug abuse patient.[facility] HospitalIn the event this information is protected by the Federal Confidentiality of Alcohol and Drug Abuse Patient Records regulations: The Federal rules restrict any use of the information to criminally investigate or prosecute any alcohol or drug abuse patient.[facility] HospitalIn the event this information is protected by the Federal Confidentiality of Alcohol and Drug Abuse Patient Records regulations: The Federal rules restrict any use of the information to criminally investigate or prosecute any alcohol or drug abuse patient.[facility] HospitalIn the event this information is protected by the Federal Confidentiality of Alcohol and Drug Abuse Patient Records regulations: The Federal rules restrict any use of the information to criminally investigate or prosecute any alcohol or drug abuse patient.[facility] HospitalIn the event this information is protected by the Federal Confidentiality of Alcohol and Drug Abuse Patient Records regulations: The Federal rules restrict any use of the information to criminally investigate or prosecute any alcohol or drug abuse patient.[facility] HospitalIn the event this information is protected by the Federal Confidentiality of Alcohol and Drug Abuse Patient Records regulations: The Federal rules restrict any use of the information to criminally investigate or prosecute any alcohol or drug abuse patient.[facility] HospitalIn the event this information is protected by the Federal Confidentiality of Alcohol and Drug Abuse Patient Records regulations: The Federal rules restrict any use of the information to criminally investigate or prosecute any alcohol or drug abuse patient.[facility] HospitalIn the event this information is protected by the Federal Confidentiality of Alcohol and Drug Abuse Patient Records regulations: The Federal rules restrict any use of the information to criminally investigate or prosecute any alcohol or drug abuse patient.[facility] HospitalIn the event this information is protected by the Federal Confidentiality of Alcohol and Drug Abuse Patient Records regulations: The Federal rules restrict any use of the information to criminally investigate or prosecute any alcohol or drug abuse patient.[facility] HospitalIn the event this information is protected by the Federal Confidentiality of Alcohol and Drug Abuse Patient Records regulations: The Federal rules restrict any use of the information to criminally investigate or prosecute any alcohol or drug abuse patient.[facility] HospitalIn the event this information is protected by the Federal Confidentiality of Alcohol and Drug Abuse Patient Records regulations: The Federal rules restrict any use of the information to criminally investigate or prosecute any alcohol or drug abuse patient.[facility] HospitalIn the event this information is protected by the Federal Confidentiality of Alcohol and Drug Abuse Patient Records regulations: The Federal rules restrict any use of the information to criminally investigate or prosecute any alcohol or drug abuse patient.[facility] HospitalIn the event this information is protected by the Federal Confidentiality of Alcohol and Drug Abuse Patient Records regulations: The Federal rules restrict any use of the information to criminally investigate or prosecute any alcohol or drug abuse patient.[facility] HospitalIn the event this information is protected by the Federal Confidentiality of Alcohol and Drug Abuse Patient Records regulations: The Federal rules restrict any use of the information to criminally investigate or prosecute any alcohol or drug abuse patient.[facility] HospitalIn the event this information is protected by the Federal Confidentiality of Alcohol and Drug Abuse Patient Records regulations: The Federal rules restrict any use of the information to criminally investigate or prosecute any alcohol or drug abuse patient.[facility] HospitalIn the event this information is protected by the Federal Confidentiality of Alcohol and Drug Abuse Patient Records regulations: The Federal rules restrict any use of the information to criminally investigate or prosecute any alcohol or drug abuse patient.[facility] HospitalIn the event this information is protected by the Federal Confidentiality of Alcohol and Drug Abuse Patient Records regulations: The Federal rules restrict any use of the information to criminally investigate or prosecute any alcohol or drug abuse patient.[facility] HospitalIn the event this information is protected by the Federal Confidentiality of Alcohol and Drug Abuse Patient Records regulations: The Federal rules restrict any use of the information to criminally investigate or prosecute any alcohol or drug abuse patient.[facility] HospitalIn the event this information is protected by the Federal Confidentiality of Alcohol and Drug Abuse Patient Records regulations: The Federal rules restrict any use of the information to criminally investigate or prosecute any alcohol or drug abuse patient.[facility] HospitalIn the event this information is protected by the Federal Confidentiality of Alcohol and Drug Abuse Patient Records regulations: The Federal rules restrict any use of the information to criminally investigate or prosecute any alcohol or drug abuse patient.[facility] HospitalIn the event this information is protected by the Federal Confidentiality of Alcohol and Drug Abuse Patient Records regulations: The Federal rules restrict any use of the information to criminally investigate or prosecute any alcohol or drug abuse patient.[facility] HospitalIn the event this information is protected by the Federal Confidentiality of Alcohol and Drug Abuse Patient Records regulations: The Federal rules restrict any use of the information to criminally investigate or prosecute any alcohol or drug abuse patient.[facility] HospitalIn the event this information is protected by the Federal Confidentiality of Alcohol and Drug Abuse Patient Records regulations: The Federal rules restrict any use of the information to criminally investigate or prosecute any alcohol or drug abuse patient.[facility] HospitalIn the event this information is protected by the Federal Confidentiality of Alcohol and Drug Abuse Patient Records regulations: The Federal rules restrict any use of the information to criminally investigate or prosecute any alcohol or drug abuse patient.[facility] HospitalIn the event this information is protected by the Federal Confidentiality of Alcohol and Drug Abuse Patient Records regulations: The Federal rules restrict any use of the information to criminally investigate or prosecute any alcohol or drug abuse patient.[facility] HospitalIn the event this information is protected by the Federal Confidentiality of Alcohol and Drug Abuse Patient Records regulations: The Federal rules restrict any use of the information to criminally investigate or prosecute any alcohol or drug abuse patient.[facility] HospitalIn the event this information is protected by the Federal Confidentiality of Alcohol and Drug Abuse Patient Records regulations: The Federal rules restrict any use of the information to criminally investigate or prosecute any alcohol or drug abuse patient.[facility] HospitalIn the event this information is protected by the Federal Confidentiality of Alcohol and Drug Abuse Patient Records regulations: The Federal rules restrict any use of the information to criminally investigate or prosecute any alcohol or drug abuse patient.[facility] HospitalIn the event this information is protected by the Federal Confidentiality of Alcohol and Drug Abuse Patient Records regulations: The Federal rules restrict any use of the information to criminally investigate or prosecute any alcohol or drug abuse patient.[facility] HospitalIn the event this information is protected by the Federal Confidentiality of Alcohol and Drug Abuse Patient Records regulations: The Federal rules restrict any use of the information to criminally investigate or prosecute any alcohol or drug abuse patient.[facility] HospitalIn the event this information is protected by the Federal Confidentiality of Alcohol and Drug Abuse Patient Records regulations: The Federal rules restrict any use of the information to criminally investigate or prosecute any alcohol or drug abuse patient.[facility] HospitalIn the event this information is protected by the Federal Confidentiality of Alcohol and Drug Abuse Patient Records regulations: The Federal rules restrict any use of the information to criminally investigate or prosecute any alcohol or drug abuse patient.[facility] HospitalIn the event this information is protected by the Federal Confidentiality of Alcohol and Drug Abuse Patient Records regulations: The Federal rules restrict any use of the information to criminally investigate or prosecute any alcohol or drug abuse patient.[facility] HospitalIn the event this information is protected by the Federal Confidentiality of Alcohol and Drug Abuse Patient Records regulations: The Federal rules restrict any use of the information to criminally investigate or prosecute any alcohol or drug abuse patient.[facility] HospitalIn the event this information is protected by the Federal Confidentiality of Alcohol and Drug Abuse Patient Records regulations: The Federal rules restrict any use of the information to criminally investigate or prosecute any alcohol or drug abuse patient.[facility] HospitalIn the event this information is protected by the Federal Confidentiality of Alcohol and Drug Abuse Patient Records regulations: The Federal rules restrict any use of the information to criminally investigate or prosecute any alcohol or drug abuse patient.[facility] HospitalIn the event this information is protected by the Federal Confidentiality of Alcohol and Drug Abuse Patient Records regulations: The Federal rules restrict any use of the information to criminally investigate or prosecute any alcohol or drug abuse patient.[facility] HospitalIn the event this information is protected by the Federal Confidentiality of Alcohol and Drug Abuse Patient Records regulations: The Federal rules restrict any use of the information to criminally investigate or prosecute any alcohol or drug abuse patient.[facility] HospitalIn the event this information is protected by the Federal Confidentiality of Alcohol and Drug Abuse Patient Records regulations: The Federal rules restrict any use of the information to criminally investigate or prosecute any alcohol or drug abuse patient.[facility] HospitalIn the event this information is protected by the Federal Confidentiality of Alcohol and Drug Abuse Patient Records regulations: The Federal rules restrict any use of the information to criminally investigate or prosecute any alcohol or drug abuse patient.[facility] HospitalIn the event this information is protected by the Federal Confidentiality of Alcohol and Drug Abuse Patient Records regulations: The Federal rules restrict any use of the information to criminally investigate or prosecute any alcohol or drug abuse patient.[facility] HospitalIn the event this information is protected by the Federal Confidentiality of Alcohol and Drug Abuse Patient Records regulations: The Federal rules restrict any use of the information to criminally investigate or prosecute any alcohol or drug abuse patient.[facility] HospitalIn the event this information is protected by the Federal Confidentiality of Alcohol and Drug Abuse Patient Records regulations: The Federal rules restrict any use of the information to criminally investigate or prosecute any alcohol or drug abuse patient.[facility] HospitalIn the event this information is protected by the Federal Confidentiality of Alcohol and Drug Abuse Patient Records regulations: The Federal rules restrict any use of the information to criminally investigate or prosecute any alcohol or drug abuse patient.[facility] HospitalIn the event this information is protected by the Federal Confidentiality of Alcohol and Drug Abuse Patient Records regulations: The Federal rules restrict any use of the information to criminally investigate or prosecute any alcohol or drug abuse patient.[facility] HospitalIn the event this information is protected by the Federal Confidentiality of Alcohol and Drug Abuse Patient Records regulations: The Federal rules restrict any use of the information to criminally investigate or prosecute any alcohol or drug abuse patient.[facility] HospitalIn the event this information is protected by the Federal Confidentiality of Alcohol and Drug Abuse Patient Records regulations: The Federal rules restrict any use of the information to criminally investigate or prosecute any alcohol or drug abuse patient.[facility] HospitalIn the event this information is protected by the Federal Confidentiality of Alcohol and Drug Abuse Patient Records regulations: The Federal rules restrict any use of the information to criminally investigate or prosecute any alcohol or drug abuse patient.[facility] HospitalIn the event this information is protected by the Federal Confidentiality of Alcohol and Drug Abuse Patient Records regulations: The Federal rules restrict any use of the information to criminally investigate or prosecute any alcohol or drug abuse patient.[facility] HospitalIn the event this information is protected by the Federal Confidentiality of Alcohol and Drug Abuse Patient Records regulations: The Federal rules restrict any use of the information to criminally investigate or prosecute any alcohol or drug abuse patient.[facility] HospitalIn the event this information is protected by the Federal Confidentiality of Alcohol and Drug Abuse Patient Records regulations: The Federal rules restrict any use of the information to criminally investigate or prosecute any alcohol or drug abuse patient.[facility] HospitalIn the event this information is protected by the Federal Confidentiality of Alcohol and Drug Abuse Patient Records regulations: The Federal rules restrict any use of the information to criminally investigate or prosecute any alcohol or drug abuse patient.[facility] HospitalIn the event this information is protected by the Federal Confidentiality of Alcohol and Drug Abuse Patient Records regulations: The Federal rules restrict any use of the information to criminally investigate or prosecute any alcohol or drug abuse patient.[facility] HospitalIn the event this information is protected by the Federal Confidentiality of Alcohol and Drug Abuse Patient Records regulations: The Federal rules restrict any use of the information to criminally investigate or prosecute any alcohol or drug abuse patient.[facility] HospitalIn the event this information is protected by the Federal Confidentiality of Alcohol and Drug Abuse Patient Records regulations: The Federal rules restrict any use of the information to criminally investigate or prosecute any alcohol or drug abuse patient.[facility] HospitalIn the event this information is protected by the Federal Confidentiality of Alcohol and Drug Abuse Patient Records regulations: The Federal rules restrict any use of the information to criminally investigate or prosecute any alcohol or drug abuse patient.[facility] HospitalIn the event this information is protected by the Federal Confidentiality of Alcohol and Drug Abuse Patient Records regulations: The Federal rules restrict any use of the information to criminally investigate or prosecute any alcohol or drug abuse patient.[facility] HospitalIn the event this information is protected by the Federal Confidentiality of Alcohol and Drug Abuse Patient Records regulations: The Federal rules restrict any use of the information to criminally investigate or prosecute any alcohol or drug abuse patient.[facility] HospitalIn the event this information is protected by the Federal Confidentiality of Alcohol and Drug Abuse Patient Records regulations: The Federal rules restrict any use of the information to criminally investigate or prosecute any alcohol or drug abuse patient.[facility] HospitalIn the event this information is protected by the Federal Confidentiality of Alcohol and Drug Abuse Patient Records regulations: The Federal rules restrict any use of the information to criminally investigate or prosecute any alcohol or drug abuse patient.[facility] HospitalIn the event this information is protected by the Federal Confidentiality of Alcohol and Drug Abuse Patient Records regulations: The Federal rules restrict any use of the information to criminally investigate or prosecute any alcohol or drug abuse patient.[facility] HospitalIn the event this information is protected by the Federal Confidentiality of Alcohol and Drug Abuse Patient Records regulations: The Federal rules restrict any use of the information to criminally investigate or prosecute any alcohol or drug abuse patient.[facility] HospitalIn the event this information is protected by the Federal Confidentiality of Alcohol and Drug Abuse Patient Records regulations: The Federal rules restrict any use of the information to criminally investigate or prosecute any alcohol or drug abuse patient.[facility] HospitalIn the event this information is protected by the Federal Confidentiality of Alcohol and Drug Abuse Patient Records regulations: The Federal rules restrict any use of the information to criminally investigate or prosecute any alcohol or drug abuse patient.[facility] HospitalIn the event this information is protected by the Federal Confidentiality of Alcohol and Drug Abuse Patient Records regulations: The Federal rules restrict any use of the information to criminally investigate or prosecute any alcohol or drug abuse patient.[facility] HospitalIn the event this information is protected by the Federal Confidentiality of Alcohol and Drug Abuse Patient Records regulations: The Federal rules restrict any use of the information to criminally investigate or prosecute any alcohol or drug abuse patient.[facility] HospitalIn the event this information is protected by the Federal Confidentiality of Alcohol and Drug Abuse Patient Records regulations: The Federal rules restrict any use of the information to criminally investigate or prosecute any alcohol or drug abuse patient.[facility] HospitalIn the event this information is protected by the Federal Confidentiality of Alcohol and Drug Abuse Patient Records regulations: The Federal rules restrict any use of the information to criminally investigate or prosecute any alcohol or drug abuse patient.[facility] HospitalIn the event this information is protected by the Federal Confidentiality of Alcohol and Drug Abuse Patient Records regulations: The Federal rules restrict any use of the information to criminally investigate or prosecute any alcohol or drug abuse patient.[facility] HospitalIn the event this information is protected by the Federal Confidentiality of Alcohol and Drug Abuse Patient Records regulations: The Federal rules restrict any use of the information to criminally investigate or prosecute any alcohol or drug abuse patient.[facility] HospitalIn the event this information is protected by the Federal Confidentiality of Alcohol and Drug Abuse Patient Records regulations: The Federal rules restrict any use of the information to criminally investigate or prosecute any alcohol or drug abuse patient.[facility] HospitalIn the event this information is protected by the Federal Confidentiality of Alcohol and Drug Abuse Patient Records regulations: The Federal rules restrict any use of the information to criminally investigate or prosecute any alcohol or drug abuse patient.[facility] HospitalIn the event this information is protected by the Federal Confidentiality of Alcohol and Drug Abuse Patient Records regulations: The Federal rules restrict any use of the information to criminally investigate or prosecute any alcohol or drug abuse patient.[facility] HospitalIn the event this information is protected by the Federal Confidentiality of Alcohol and Drug Abuse Patient Records regulations: The Federal rules restrict any use of the information to criminally investigate or prosecute any alcohol or drug abuse patient.[facility] HospitalIn the event this information is protected by the Federal Confidentiality of Alcohol and Drug Abuse Patient Records regulations: The Federal rules restrict any use of the information to criminally investigate or prosecute any alcohol or drug abuse patient.[facility] HospitalIn the event this information is protected by the Federal Confidentiality of Alcohol and Drug Abuse Patient Records regulations: The Federal rules restrict any use of the information to criminally investigate or prosecute any alcohol or drug abuse patient.[facility] HospitalIn the event this information is protected by the Federal Confidentiality of Alcohol and Drug Abuse Patient Records regulations: The Federal rules restrict any use of the information to criminally investigate or prosecute any alcohol or drug abuse patient.[facility] HospitalIn the event this information is protected by the Federal Confidentiality of Alcohol and Drug Abuse Patient Records regulations: The Federal rules restrict any use of the information to criminally investigate or prosecute any alcohol or drug abuse patient.[facility] HospitalIn the event this information is protected by the Federal Confidentiality of Alcohol and Drug Abuse Patient Records regulations: The Federal rules restrict any use of the information to criminally investigate or prosecute any alcohol or drug abuse patient.[facility] HospitalIn the event this information is protected by the Federal Confidentiality of Alcohol and Drug Abuse Patient Records regulations: The Federal rules restrict any use of the information to criminally investigate or prosecute any alcohol or drug abuse patient.[facility] HospitalIn the event this information is protected by the Federal Confidentiality of Alcohol and Drug Abuse Patient Records regulations: The Federal rules restrict any use of the information to criminally investigate or prosecute any alcohol or drug abuse patient.[facility] HospitalIn the event this information is protected by the Federal Confidentiality of Alcohol and Drug Abuse Patient Records regulations: The Federal rules restrict any use of the information to criminally investigate or prosecute any alcohol or drug abuse patient.[facility] HospitalIn the event this information is protected by the Federal Confidentiality of Alcohol and Drug Abuse Patient Records regulations: The Federal rules restrict any use of the information to criminally investigate or prosecute any alcohol or drug abuse patient.[facility] HospitalIn the event this information is protected by the Federal Confidentiality of Alcohol and Drug Abuse Patient Records regulations: The Federal rules restrict any use of the information to criminally investigate or prosecute any alcohol or drug abuse patient.[facility] HospitalIn the event this information is protected by the Federal Confidentiality of Alcohol and Drug Abuse Patient Records regulations: The Federal rules restrict any use of the information to criminally investigate or prosecute any alcohol or drug abuse patient.[facility] HospitalIn the event this information is protected by the Federal Confidentiality of Alcohol and Drug Abuse Patient Records regulations: The Federal rules restrict any use of the information to criminally investigate or prosecute any alcohol or drug abuse patient.[facility] HospitalIn the event this information is protected by the Federal Confidentiality of Alcohol and Drug Abuse Patient Records regulations: The Federal rules restrict any use of the information to criminally investigate or prosecute any alcohol or drug abuse patient.[facility] Reason for Visit (unrecogniz ed section and content) Reason Comments Consult Specialty Diagnoses / Procedures Referred By Contac t Referred To Contact Diagnoses Anal squamous cell carcinoma (HCC) Procedures CONSULT TO HEMATOLOGY/ONCOLOGY OFFICE/OUTPATIENT NEW HIGH MDM 60-74 MINUTES Ramiro Cheung MD [address] [place] [address] Referral ID Status Reason Start Date Expiration Date V isits Requested Visits Authorized [id number] Closed PCP Requested Referral 05/22/2021 05/22/2022 1 1 Reason Comments Consult Specialty Diagnoses / Procedures Referred By Contac t Referred To Contact Radiation Oncology Diagnoses Anal squamous cell carcinoma (HCC) Procedures RAD/ONC CONSULT OFFICE/OUTPATIENT NEW HIGH MDM 60-74 MINUTES Ramiro Cheung MD [address] [place] [id number] Referral ID Status Reason Start Date Expiration Date V isits Requested Visits Authorized [id number] Closed PCP Requested Referral 05/22/2021 05/22/2022 1 [...] Procedures CONSULT TO ONCOLOGY OFFICE/OUTPATIENT NEW HIGH [facility] 60-74 MINUTES Caty Bowens MD [address] [place] [address] Referral ID Status Reason Start Date Expiration Date V isits Requested Visits Authorized [id number] Closed PCP Requested Referral 06/05/2021 05/29/2022 1 1 Reason Comments Follow Up Reason Comments Patient Question Reason Comments Benefits Investigation Reason Comments Blood Draw (CVAD) Reason Comments Radiotherapy 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 Need [...] COLON SINGLE CONTRAST STUDY Ramiro Cheung MD [address] [place] [address] Xr Imaging Referral ID Status Reason Start Date Expiration Date V isits Requested Visits Authorized [id number] Closed Auto-Generate d Referral 04/01/2022 05/01/2023 1 [...] [place] [address] Department [place] [address] Referral ID Status Reason Start Date Expiration Date Visits Requested Visits Authorized [id number] Pending Review Perform Procedure 03/05/2023 03/04/2024 1 [...] HIGH MDM 60 MINUTES Ramiro Cheung MD [address] [place] [address] Referral ID Status Reason Start Date Expiration Date V isits Requested Visits Authorized [id number] Closed PCP Requested Referral 08/03/2023 08/02/2024 1 1 Reason Comments Radiology MRI Specialty Diagnoses / Procedures Referred By Karen lira Referred To Contact MR IMAGING Diagnoses History of rectal cancer Procedures MRI RECTUM WO/W IVCON MRI PELVIS W/O & W/CONTRAST MATERIAL Ramiro Cheung MD [address] [place] [address] [place] [address] Referral ID Status Reason Start Date Expiration Date V isits Requested Visits Authorized [id number] Closed Auto-Generate d Referral 08/03/2023 09/01/2024 1 1 Reason Onset Date Comments Refill Request 10/22/2023 Reason Comments Patient Question left shoulder pain 1 0/10 Reason Comments Pain (Shoulder Pain) lefthas been to PT at [facility] per Dr. Siddiqui but did not help.MRI is scheduled 12/09/23 through [facility] Reason Comments Pre-Op Exam ACDF of [...] Care Teams (unrecognized sec tion and content) Wash Crew Person Relationship Specialty Start Date End Date Pcp, No PCP - General 04/29/21 11/28/21 Caty Bowens MD [address] [place] [address] Hematology/Oncology 05/29/21 Wash Crew Person Relationship Specialty Start Date End Date Pcp, No PCP - General 04/29/21 11/28/21 Caty Bowens MD [address] [place] [address] Hematology/Oncology 05/29/21 Wash Crew Person Relationship Specialty Start Date End Date Pcp, No PCP - General 04/29/21 11/28/21 Caty Bowens MD [address] [place] [address] Hematology/Oncology 05/29/21 Marisela Rome MD, [address] [place], [place] [id number] Physician Radiation Oncology 05/30/21 Wash Crew Person Relationship Specialty Start Date End Date Pcp, No PCP - General 04/29/21 11/28/21 Caty Bowens MD [address] [place] [address] Hematology/Oncology 05/29/21 Marisela Rome MD, [address] [place], [place] [phone] Physician Radiation Oncology 05/30/21 Wash Crew Person Relationship Specialty Start Date End Date Pcp, No PCP - General 04/29/21 11/28/21 Caty Bowens MD [address] [place] [address] Hematology/Oncology 05/29/21 Marisela Rome MD, [address] [place], [place] [phone] Physician Radiation Oncology 05/30/21 Wash Crew Person Relationship Specialty Start Date End Date Pcp, No PCP - General 04/29/21 11/28/21 Caty Bowens MD [address] [place] [address] Hematology/Oncology 05/29/21 Marisela Rome MD, [address] [place], [place] [phone] Physician Radiation Oncology 05/30/21 Amelia Souza, RN Specialty Deep Submergence Vehicle Operator Oncology 06/04/21 Wash Crew Person Relationship Specialty Start Date End Date Pcp, No PCP - General 04/29/21 11/28/21 Caty Bowens MD [address] [place] [address] Hematology/Oncology 05/29/21 Marisela Rome MD, [address] [place] [address] Physician Radiation Oncology 05/30/21 Wash Crew Person Relationship Specialty Start Date End Date Pcp, No PCP - General 04/29/21 11/28/21 Caty Bowens MD [address] [place], [place] [id number] Hematology/Oncology 05/29/21 Marisela Rome MD, [address] [place] [address] Physician Radiation Oncology 05/30/21 Amelia Souza RN Specialty Deep Submergence Vehicle Operator Oncology 06/04/21 Wash Crew Person Relationship Specialty Start Date End Date Pcp, No PCP - General 04/29/21 11/28/21 Caty Bowens MD [address] [place] [address] Hematology/Oncology 05/29/21 Marisela Rome MD, [address] [place] [address] Physician Radiation Oncology 05/30/21 Amelia Souza RN Specialty Deep Submergence Vehicle Operator Oncology 06/04/21 Wash Crew Person Relationship Specialty Start Date End Date Pcp, No PCP - General 04/29/21 11/28/21 Caty Bowens MD [address] [place] [address] Hematology/Oncology 05/29/21 Marisela Rome MD, [address] [place] [address] Physician Radiation Oncology 05/30/21 Amelia Souza RN Specialty Deep Submergence Vehicle Operator Oncology 06/04/21 Wash Crew Person Relationship Specialty Start Date End Date Pcp, No PCP - General 04/29/21 11/28/21 Caty Bowens MD [address] [place], [place] [id number] Hematology/Oncology 05/29/21 Marisela Rome MD, [address] [facility] [place] [id number] [phone] Physician Radiation Oncology 05/30/21 Amelia Souza RN Specialty Deep Submergence Vehicle Operator Oncology 06/04/21 Wash Crew Person Relationship Specialty Start Date End Date Pcp, No PCP - General 04/29/21 11/28/21 Caty Bowens MD [address] [place] [address] Hematology/Oncology 05/29/21 Marisela Rome MD, [address] [facility] [place] [address] Physician Radiation Oncology 05/30/21 Amelia Souza RN Specialty Deep Submergence Vehicle Operator Oncology 06/04/21 Wash Crew Person Relationship Specialty Start Date End Date Pcp, No PCP - General 04/29/21 11/28/21 Caty Bowens MD [address] [place] [address] Hematology/Oncology 05/29/21 Marisela Rome MD, [address] [place] [address] Physician Radiation Oncology 05/30/21 Amelia Souza RN Specialty Deep Submergence Vehicle Operator Oncology 06/04/21 Wash Crew Person Relationship Specialty Start Date End Date Pcp, No PCP - General 04/29/21 11/28/21 Caty Bowens MD [address] [place], [place] [phone] Hematology/Oncology 05/29/21 Marisela Rome MD, [address] [place], [place] [phone] Physician Radiation Oncology 05/30/21 Amelia Souza RN Specialty Deep Submergence Vehicle Operator Oncology 06/04/21 Wash Crew Person Relationship Specialty Start Date End Date Pcp, No PCP - General 04/29/21 11/28/21 Caty Bowens MD [address] [place], [place] [phone] Hematology/Oncology 05/29/21 Marisela Rome MD, MD [address] [place] [address] Physician Radiation Oncology 05/30/21 Amelia Souza RN Specialty Deep Submergence Vehicle Operator Oncology 06/04/21 Wash Crew Person Relationship Specialty Start Date End Date Pcp, No PCP - General 04/29/21 11/28/21 Caty Bowens MD [address] [place] [address] Hematology/Oncology 05/29/21 Marisela Rome MD, [address] [place] [address] Physician Radiation Oncology 05/30/21 Amelia Souza RN Specialty Deep Submergence Vehicle Operator Oncology 06/04/21 Wash Crew Person Relationship Specialty Start Date End Date Pcp, No PCP - General 04/29/21 11/28/21 Caty Bowens MD [address] [place] [address] Hematology/Oncology 05/29/21 Marisela Rome MD, [address] [place] [address] Physician Radiation Oncology 05/30/21 Amelia Souza RN Specialty Deep Submergence Vehicle Operator Oncology 06/04/21 Wash Crew Person Relationship Specialty Start Date End Date Pcp, No PCP - General 04/29/21 11/28/21 Caty Bowens MD [address] [place] [address] Hematology/Oncology 05/29/21 Marisela Rome MD, [address] [place], [place] [phone] Physician Radiation Oncology 05/30/21 Amelia Souza RN Specialty Deep Submergence Vehicle Operator Oncology 06/04/21 Wash Crew Person Relationship Specialty Start Date End Date Pcp, No PCP - General 04/29/21 11/28/21 Caty Bowens MD [address] [place] [address] Hematology/Oncology 05/29/21 Marisela Rome MD, [address] [place], [place] [phone] Physician Radiation Oncology 05/30/21 Amelia Souza RN Specialty Deep Submergence Vehicle Operator Oncology 06/04/21 Wash Crew Person Relationship Specialty Start Date End Date Pcp, No PCP - General 04/29/21 11/28/21 Caty Bowens MD [address] [place] [address] Hematology/Oncology 05/29/21 Marisela Rome MD, [address] [place] [address] Physician Radiation Oncology 05/30/21 Amelia Souza RN Specialty Deep Submergence Vehicle Operator Oncology 06/04/21 Wash Crew Person Relationship Specialty Start Date End Date Pcp, No PCP - General 04/29/21 11/28/21 Caty Bowens MD [address] [place] [address] Hematology/Oncology 05/29/21 Marisela Rome MD, [address] [place], [place] [phone] Physician Radiation Oncology 05/30/21 Amelia Souza RN Specialty Deep Submergence Vehicle Operator Oncology 06/04/21 Wash Crew Person Relationship Specialty Start Date End Date Pcp, No PCP - General 04/29/21 11/28/21 Caty Bowens MD [address] [place], [place] [phone] Hematology/Oncology 05/29/21 Marisela Rome MD, [address] [place], [place] [phone] Physician Radiation Oncology 05/30/21 Amelia Souza RN Specialty Deep Submergence Vehicle Operator Oncology 06/04/21 Wash Crew Person Relationship Specialty Start Date End Date Pcp, No PCP - General 04/29/21 11/28/21 Caty Bowens MD [address] [place], [place] [phone] Hematology/Oncology 05/29/21 Marisela Rome MD, [address] [facility] [place] [phone] Physician Radiation Oncology 05/30/21 Amelia Souza RN Specialty Deep Submergence Vehicle Operator Oncology 06/04/21 Wash Crew Person Relationship Specialty Start Date End Date Pcp, No PCP - General 04/29/21 11/28/21 Caty Bowens MD [address] [place] [address] Hematology/Oncology 05/29/21 Marisela Rome MD, [address] [place] [address] Physician Radiation Oncology 05/30/21 Amelia Souza RN Specialty Deep Submergence Vehicle Operator Oncology 06/04/21 Wash Crew Person Relationship Specialty Start Date End Date Pcp, No PCP - General 04/29/21 11/28/21 Caty Bowens MD [address] [place], [place] [phone] Hematology/Oncology 05/29/21 Marisela Rome MD, [address] [place] [address] Physician Radiation Oncology 05/30/21 Amelia Souza RN Specialty Deep Submergence Vehicle Operator Oncology 06/04/21 Wash Crew Person Relationship Specialty Start Date End Date Pcp, No PCP - General 04/29/21 11/28/21 Caty Bowens MD [address] [place], [place] [phone] Hematology/Oncology 05/29/21 Marisela Rome MD, [address] [place] [address] Physician Radiation Oncology 05/30/21 Amelia Souza RN Specialty Deep Submergence Vehicle Operator Oncology 06/04/21 Wash Crew Person Relationship Specialty Start Date End Date Pcp, No PCP - General 04/29/21 11/28/21 Caty Bowens MD [address] [place] [address] Hematology/Oncology 05/29/21 Marisela Rome MD, [address] [place] [address] Physician Radiation Oncology 05/30/21 Amelia Souza RN Specialty Deep Submergence Vehicle Operator Oncology 06/04/21 Wash Crew Person Relationship Specialty Start Date End Date Pcp, No PCP - General 04/29/21 11/28/21 Caty Bowens MD [address] [place] [address] Hematology/Oncology 05/29/21 Marisela Rome MD, [address] [place] [address] Physician Radiation Oncology 05/30/21 Amelia Souza RN Specialty Deep Submergence Vehicle Operator Oncology 06/04/21 Wash Crew Person Relationship Specialty Start Date End Date Pcp, No PCP - General 04/29/21 11/28/21 Caty Bowens MD [address] [place] [address] Hematology/Oncology 05/29/21 Marisela Rome MD, [address] [place], [place] [address] [phone] Physician Radiation Oncology 05/30/21 Amelia Souza RN Specialty Deep Submergence Vehicle Operator Oncology 06/04/21 Wash Crew Person Relationship Specialty Start Date End Date Pcp, No PCP - General 04/29/21 11/28/21 Caty Bowens MD [address] [place] [address] Hematology/Oncology 05/29/21 Marisela Rome MD, [address] [place] [address] Physician Radiation Oncology 05/30/21 Amelia Souza RN Specialty Deep Submergence Vehicle Operator Oncology 06/04/21 Wash Crew Person Relationship Specialty Start Date End Date Pcp, No PCP - General 04/29/21 11/28/21 Caty Bowens MD [address] [place] [address] Hematology/Oncology 05/29/21 Marisela Rome MD, [address] [place] [address] Physician Radiation Oncology 05/30/21 Amelia Souza RN Specialty Deep Submergence Vehicle Operator Oncology 06/04/21 Wash Crew Person Relationship Specialty Start Date End Date Pcp, No PCP - General 04/29/21 11/28/21 Caty Bowens MD [address] [place], [place] [phone] Hematology/Oncology 05/29/21 Marisela Rome MD, [address] [place] [address] Physician Radiation Oncology 05/30/21 Amelia Souza RN Specialty Deep Submergence Vehicle Operator Oncology 06/04/21 Wash Crew Person Relationship Specialty Start Date End Date Pcp, No PCP - General 04/29/21 11/28/21 Caty Bowens MD [address] [place], [place] [phone] Hematology/Oncology 05/29/21 Marisela Rome MD, [address] [place] [address] Physician Radiation Oncology 05/30/21 Amelia Souza RN Specialty Deep Submergence Vehicle Operator Oncology 06/04/21 Wash Crew Person Relationship Specialty Start Date End Date Pcp, No PCP - General 04/29/21 11/28/21 Caty Bowens MD [address] [place], [place] [phone] Hematology/Oncology 05/29/21 Marisela Rome MD, [address] [place] [address] Physician Radiation Oncology 05/30/21 Amelia Souza RN Specialty Deep Submergence Vehicle Operator Oncology 06/04/21 Wash Crew Person Relationship Specialty Start Date End Date Pcp, No PCP - General 04/29/21 11/28/21 Caty Bowens MD [address] [place] [address] Hematology/Oncology 05/29/21 Marisela Rome MD, [address] [place] [address] Physician Radiation Oncology 05/30/21 Amelia Souza RN Specialty Deep Submergence Vehicle Operator Oncology 06/04/21 Wash Crew Person Relationship Specialty Start Date End Date Pcp, No PCP - General 04/29/21 11/28/21 Caty Bowens MD [address] [place] [address] Hematology/Oncology 05/29/21 Marisela Rome MD, [address] [place], [place] [id number] [phone] Physician Radiation Oncology 05/30/21 Amelia Souza RN Specialty Deep Submergence Vehicle Operator Oncology 06/04/21 Wash Crew Person Relationship Specialty Start Date End Date Pcp, No PCP - General 04/29/21 11/28/21 Caty Bowens MD [address] [place] [address] Hematology/Oncology 05/29/21 Marisela Rome MD, [address] [place] [address] Physician Radiation Oncology 05/30/21 Amelia Souza RN Specialty Deep Submergence Vehicle Operator Oncology 06/04/21 Wash Crew Person Relationship Specialty Start Date End Date Pcp, No PCP - General 04/29/21 11/28/21 Caty Bowens MD [address] [place] [address] Hematology/Oncology 05/29/21 Marisela Rome MD, [address] [facility] [place] [address] Physician Radiation Oncology 05/30/21 Amelia Souza RN Specialty Deep Submergence Vehicle Operator Oncology 06/04/21 Wash Crew Person Relationship Specialty Start Date End Date Pcp, No PCP - General 04/29/21 11/28/21 Caty Bowens MD [address] [place] [address] Hematology/Oncology 05/29/21 Marisela Rome MD, [address] [place], [place] [phone] Physician Radiation Oncology 05/30/21 Amelia Souza, RN Specialty Deep Submergence Vehicle Operator Oncology 06/04/21 Wash Crew Person Relationship Specialty Start Date End Date Caty Bowens MD [address] [place] [address] Hematology/Oncology 05/29/21 Marisela Rome MD, [address] [place], [place] [phone] Physician Radiation Oncology 05/30/21 Amelia Souza RN Specialty Deep Submergence Vehicle Operator Oncology 06/04/21 Wash Crew Person Relationship Specialty Start Date End Date Caty Bowens MD [address] [place] [address] Hematology/Oncology 05/29/21 Marisela Rome MD, [address] [place], [place] [phone] Physician Radiation Oncology 05/30/21 Amelia Souza RN Specialty Deep Submergence Vehicle Operator Oncology 06/04/21 Wash Crew Person Relationship Specialty Start Date End Date Caty Bowens MD [address] [place] [address] Hematology/Oncology 05/29/21 Marisela Rome MD, [address] [place], [place] [address] [phone] Physician Radiation Oncology 05/30/21 Amelia Souza RN Specialty Deep Submergence Vehicle Operator Oncology 06/04/21 Helen Roa [address] [address] Cardiology 01/07/22 Wash Crew Person Relationship Specialty Start Date End Date Caty Bowens MD [address] [place] [address] Hematology/Oncology 05/29/21 Marisela Rome MD, [address] [place] [address] Physician Radiation Oncology 05/30/21 Amelia Souza RN Specialty Deep Submergence Vehicle Operator Oncology 06/04/21 Helen Roa [address] [address] Cardiology 01/07/22 Wash Crew Person Relationship Specialty Start Date End Date Caty Bowens MD [address] [place] [address] Hematology/Oncology 05/29/21 Marisela Rome MD, [address] [place] [address] Physician Radiation Oncology 05/30/21 Amelia Souza RN Specialty Deep Submergence Vehicle Operator Oncology 06/04/21 Helen Roa [address] [place] [phone] Cardiology 01/07/22 Wash Crew Person Relationship Specialty Start Date End Date Caty Bowens MD [address] [place] [address] Hematology/Oncology 05/29/21 Marisela Rome MD, [address] [place] [address] Physician Radiation Oncology 05/30/21 Amelia Souza RN Specialty Deep Submergence Vehicle Operator Oncology 06/04/21 Helen Roa [address] [address] Cardiology 01/07/22 Wash Crew Person Relationship Specialty Start Date End Date Caty Bowens MD [address] [place] [address] Hematology/Oncology 05/29/21 Marisela Rome MD, [address] [place] [address] Physician Radiation Oncology 05/30/21 Amelia Souza RN Specialty Deep Submergence Vehicle Operator Oncology 06/04/21 Helen Roa [address] [address] Cardiology 01/07/22 Wash Crew Person Relationship Specialty Start Date End Date Caty Bowens MD [address] [place] [address] Hematology/Oncology 05/29/21 Marisela Rome MD, [address] [place] [address] Physician Radiation Oncology 05/30/21 Amelia Souza RN Specialty Deep Submergence Vehicle Operator Oncology 06/04/21 Helen Roa [address] [address] Cardiology 01/07/22 Wash Crew Person Relationship Specialty Start Date End Date Caty Bowens MD [address] [place] [address] Hematology/Oncology 05/29/21 Marisela Rome MD, [address] [place] [address] Physician Radiation Oncology 05/30/21 Doup, Amelia, RN Specialty Deep Submergence Vehicle Operator Oncology 06/04/21 Helen Roa [address] [address] Cardiology 01/07/22 Ramiro Cheung MD [address] [place] [address] Referring Colon and Rectal Surgery 01/28/22 Ramiro Cheung MD [address] [place] [address] Home Care Provider Colon and Rectal Surgery 01/28/22 Leandro rCuz, DERRICK [address] [place], [place] 299[address]31 Floor Installer Post Acute Care 01/28/22 Wash Crew Person Relationship Specialty Start Date End Date Caty Bowens MD [address] [place] [address] Hematology/Oncology 05/29/21 Marisela Rome MD, [address] [place] [address] Physician Radiation Oncology 05/30/21 Amelia Souza RN Specialty Deep Submergence Vehicle Operator Oncology 06/04/21 Helen Roa [address] [address] Cardiology 01/07/22 Ramiro Cheung MD [address] [place] [address] Referring Colon and Rectal Surgery 01/28/22 Ramiro Cheung MD [address] [place] [address] Home Care Provider Colon and Rectal Surgery 01/28/22 Leandro Cruz RN [address] [place] [address] Floor Installer Post Acute Care 01/28/22 Wash Crew Person Relationship Specialty Start Date End Date Caty Bowens MD [address] [place] [address] Hematology/Oncology 05/29/21 Marisela Rome MD, [address] [place] [address] Physician Radiation Oncology 05/30/21 Amelia Souza RN Specialty Deep Submergence Vehicle Operator Oncology 06/04/21 Helen Roa [address] [address] Cardiology 01/07/22 Ramiro Cheung MD [address] [place] [address] Referring Colon and Rectal Surgery 01/28/22 Ramiro Cheung MD [address] [place] [address] Home Care Provider Colon and Rectal Surgery 01/28/22 Leandro Cruz RN [address] [place], [place] 5310331 Floor Installer Post Acute Care 01/28/22 Wash Crew Person Relationship Specialty Start Date End Date Caty Bowens MD [address] [place] [address] Hematology/Oncology 05/29/21 Marisela Rome MD, [address] [place] [address] Physician Radiation Oncology 05/30/21 Amelia Souza RN Specialty Deep Submergence Vehicle Operator Oncology 06/04/21 Helen Roa [address] [address] Cardiology 01/07/22 Ramiro Cheung MD [address] [place] [address] Referring Colon and Rectal Surgery 01/28/22 Ramiro Cheung MD [address] [place] [address] Home Care Provider Colon and Rectal Surgery 01/28/22 Leandro Cruz RN [address] [place], [place] [address]48331 Floor Installer Post Acute Care 01/28/22 Wash Crew Person Relationship Specialty Start Date End Date Caty Bowens MD [address] [place] [address] Hematology/Oncology 05/29/21 Marisela Rome MD, [address] [place], [place] [phone] Physician Radiation Oncology 05/30/21 Amelia Souza, DERRICK Specialty Deep Submergence Vehicle Operator Oncology 06/04/21 Helen Roa ANDRE[address] [place] [phone] Cardiology 01/07/22 Ramiro Cheung MD [address] [place] [address] Referring Colon and Rectal Surgery 01/28/22 Ramiro Cheung MD [address] [place] [address] Home Care Provider Colon and Rectal Surgery 01/28/22 Leandro Cruz RN [address] [place] [address] Floor Installer Post Acute Care 01/28/22 Wash Crew Person Relationship Specialty Start Date End Date Caty Bowens MD [address] [place] [address] Hematology/Oncology 05/29/21 Marisela Rome MD, [address] [place] [address] Physician Radiation Oncology 05/30/21 Amelia Souza, RN Specialty Deep Submergence Vehicle Operator Oncology 06/04/21 Helen Roa [address] [address] Cardiology 01/07/22 Ramiro Cheung MD [address] [address] Referring Colon and Rectal Surgery 01/28/22 aRmiro Cheung MD [address] [address] Home Care Provider Colon and Rectal Surgery 01/28/22 Leandro Cruz, RN [address] [place] [address] Floor Installer Post Acute Care 01/28/22 Wash Crew Person Relationship Specialty Start Date End Date Caty Bowens MD [address] [place] [address] Hematology/Oncology 05/29/21 Marisela Rome MD, [address] [place] [address] Physician Radiation Oncology 05/30/21 Amelia Souza, RN Specialty Deep Submergence Vehicle Operator Oncology 06/04/21 Helen Roa [address] [address] Cardiology 01/07/22 Ramiro Cheung MD [address] [place] [address] Referring Colon and Rectal Surgery 01/28/22 Ramiro Cheung MD [address] [address] Home Care Provider Colon and Rectal Surgery 01/28/22 Leandro Cruz, DERRICK [address] [place], [place] [address]31 Floor Installer Post Acute Care 01/28/22 Wash Crew Person Relationship Specialty Start Date End Date Caty Bowens MD [address] [place] [address] Hematology/Oncology 05/29/21 Marisela Rome MD, [address] [place], [place] [phone] Physician Radiation Oncology 05/30/21 Amelia Souza RN Specialty Deep Submergence Vehicle Operator Oncology 06/04/21 Helen Roa [address] [phone] Cardiology 01/07/22 Ramiro Cheung MD [address] [address] Referring Colon and Rectal Surgery 02/13/22 03/02/22 Ramiro Cheung MD [address] [address] Home Care Provider Colon and Rectal Surgery 02/13/22 Leandro Cruz, DERRICK [address] [place] [address] Floor Installer Post Acute Care 02/24/22 Wash Crew Person Relationship Specialty Start Date End Date Caty Bowens MD [address] [place] [address] Hematology/Oncology 05/29/21 Marisela Rome MD, [address] [place] [address] Physician Radiation Oncology 05/30/21 Amelia Souza, RN Specialty Deep Submergence Vehicle Operator Oncology 06/04/21 Helen Roa [address] [address] Cardiology 01/07/22 Ramiro Cheung MD [address] [address] Referring Colon and Rectal Surgery 02/13/22 03/02/22 Ramiro Cheung MD [address] [address] Home Care Provider Colon and Rectal Surgery 02/13/22 Leandro Cruz, DERRICK [address] [place], [place] 199[address]31 Floor Installer Post Acute Care 02/24/22 Wash Crew Person Relationship Specialty Start Date End Date Caty Bowens MD [address] [place] [address] Hematology/Oncology 05/29/21 Marisela Rome MD, [address] [place] [address] Physician Radiation Oncology 05/30/21 Amelia Souza, RN Specialty Deep Submergence Vehicle Operator Oncology 06/04/21 Helen Roa [address] [address] Cardiology 01/07/22 Ramiro Cheung MD [address] [address] Referring Colon and Rectal Surgery 02/13/22 03/02/22 Ramiro Cheung MD [address] [place] [address] Home Care Provider Colon and Rectal Surgery 02/13/22 Leandro Cruz RN [address] [place], [place] 3896631 Floor Installer Post Acute Care 02/24/22 Wash Crew Person Relationship Specialty Start Date End Date Caty Bowens MD [address] [place] [address] Hematology/Oncology 05/29/21 Marisela Rome MD, MD [address] [facility] [place] [address] Physician Radiation Oncology 05/30/21 Amelia Souza RN Specialty Deep Submergence Vehicle Operator Oncology 06/04/21 Helen Roa [address] [address] Cardiology 01/07/22 Ramiro Cheung MD [address] [place] [address] Home Care Provider Colon and Rectal Surgery 02/13/22 Leandro Cruz, DERRICK [address] [place] [address] Floor Installer Post Acute Care 02/24/22 Wash Crew Person Relationship Specialty Start Date End Date Caty Bowens MD [address] [place] [address] Hematology/Oncology 05/29/21 Marisela Rome MD, MD [address] [place] [address] Physician Radiation Oncology 05/30/21 Amelia Souza RN Specialty Deep Submergence Vehicle Operator Oncology 06/04/21 Helen Roa [address] [address] Cardiology 01/07/22 Ramiro Cheung MD [address] [place] [address] Home Care Provider Colon and Rectal Surgery 02/13/22 Leandro Cruz, DERRICK [address] [place], [place] 2697331 Floor Installer Post Acute Care 02/24/22 Wash Crew Person Relationship Specialty Start Date End Date Caty Bowens MD [address] [place], [place] [address] Hematology/Oncology 05/29/21 Marisela Rome MD, [address] [place] [address] Physician Radiation Oncology 05/30/21 Amelia Souza RN Specialty Deep Submergence Vehicle Operator Oncology 06/04/21 Helen Roa [address] [address] Cardiology 01/07/22 Ramiro Cheung MD [address] [place] [address] Home Care Provider Colon and Rectal Surgery 02/13/22 Leandro Cruz RN [address] [place], [place] 0515431 Floor Installer Post Acute Care 02/24/22 Wash Crew Person Relationship Specialty Start Date End Date Caty Bowens MD [address] [place], [place] 595[address]95 Hematology/Oncology 05/29/21 Marisela Rome MD, [address] [place] [address] Physician Radiation Oncology 05/30/21 Amelia Souza, RN Specialty Deep Submergence Vehicle Operator Oncology 06/04/21 Helen Roa [address] [address] Cardiology 01/07/22 Ramiro Cheung MD [address] [address] Home Care Provider Colon and Rectal Surgery 02/13/22 Leandro Cruz, RN [address] [place] [address] Floor Installer Post Acute Care 02/24/22 Gurjit Delcid MD [address] [place], [place] 3556895 Referring Internal Medicine 03/10/22 Estefany Stern, PT [address] [place], [place] 2424231 Floor Installer Post Acute Care 03/11/22 Wash Crew Person Relationship Specialty Start Date End Date Caty Bowens MD [address] [place], [place] [phone] Hematology/Oncology 05/29/21 Marisela Rome MD, [address] [place] [address] Physician Radiation Oncology 05/30/21 Amelia Souza, RN Specialty Deep Submergence Vehicle Operator Oncology 06/04/21 Helen Roa [address] [address] Cardiology 01/07/22 Ramiro Cheung MD [address] [address] Home Care Provider Colon and Rectal Surgery 02/13/22 Leandro Cruz RN [address] [place] [address] Floor Installer Post Acute Care 02/24/22 Gurjit Delcid MD [address] [place] [address] Referring Internal Medicine 03/10/22 Estefany Stern, PT [address] [place] [address] Floor Installer Post Acute Care 03/11/22 Wash Crew Person Relationship Specialty Start Date End Date Caty Bowens MD [address] [place] [phone] Hematology/Oncology 05/29/21 Marisela Rome MD, [address] [place], [place] [phone] Physician Radiation Oncology 05/30/21 Amelia Souza RN Specialty Deep Submergence Vehicle Operator Oncology 06/04/21 Helen Roa [address] [phone] Cardiology 01/07/22 Ramiro Cheung MD [address] [address] Home Care Provider Colon and Rectal Surgery 02/13/22 Leandro Cruz, DERRICK [address] [place], [place] 1903231 Floor Installer Post Acute Care 02/24/22 Gurjit Delcid MD [address] [place] [address] Referring Internal Medicine 03/10/22 Estefany Stern, PT [address] [place] [address] Floor Installer Post Acute Care 03/11/22 Wash Crew Person Relationship Specialty Start Date End Date Caty Bowens MD [address] [place] [address] Hematology/Oncology 05/29/21 Marisela Rome MD, [address] [place] [address] Physician Radiation Oncology 05/30/21 Amelia Souza, RN Specialty Deep Submergence Vehicle Operator Oncology 06/04/21 Helen Roa [address] [address] Cardiology 01/07/22 Ramiro Cheung MD [address] [address] Home Care Provider Colon and Rectal Surgery 02/13/22 Leandro Cruz, DERRICK [address] [place] [address] Floor Installer Post Acute Care 02/24/22 Gurjit Delcid MD [address] [place] [address] Referring Internal Medicine 03/10/22 Estefany Stern, PT [address] [place] [address] Floor Installer Post Acute Care 03/11/22 Wash Crew Person Relationship Specialty Start Date End Date Caty Bowens MD [address] [place] [address] Hematology/Oncology 05/29/21 Marisela Rome MD, [address] [place] [address] Physician Radiation Oncology 05/30/21 Amelia Souza, RN Specialty Deep Submergence Vehicle Operator Oncology 06/04/21 Helen Roa [address] [address] Cardiology 01/07/22 Ramiro Cheung MD [address] [address] Home Care Provider Colon and Rectal Surgery 02/13/22 Leandro Cruz RN [address] [place], [place] 4017431 Floor Installer Post Acute Care 02/24/22 Gurjit Delcid MD [address] [place] [address] Referring Internal Medicine 03/10/22 Estefany Stern, RANDALL [address] [place] [address] Floor Installer Post Acute Care 03/11/22 Wash Crew Person Relationship Specialty Start Date End Date Caty Bowens MD [address] [place] [address] Hematology/Oncology 05/29/21 Marisela Rome MD, [address] [facility] [place] [address] Physician Radiation Oncology 05/30/21 Amelia Souza RN Specialty Deep Submergence Vehicle Operator Oncology 06/04/21 Helen Roa [address] [address] Cardiology 01/07/22 [facility]amiro [facility]ung MD [address] [facility] [address] [address] Home Care Provider Colon and Rectal Surgery 02/13/22 Leandro Cruz RN [address] [place], [place] 6090531 Floor Installer Post Acute Care 02/24/22 Gurjit Delcid MD [address] [place] [address] Referring Internal Medicine 03/10/22 Estefany Stern, PT [address] [place] [address] Floor Installer Post Acute Care 03/11/22 Wash Crew Person Relationship Specialty Start Date End Date Caty Bowens MD [address] [place] [address] Hematology/Oncology 05/29/21 Marisela Rome MD, [address] [place], [place] [phone] Physician Radiation Oncology 05/30/21 Amelia Souza RN Specialty Deep Submergence Vehicle Operator Oncology 06/04/21 Helen Roa [address] [phone] Cardiology 01/07/22 Ramiro Cheung MD [address] [address] Home Care Provider Colon and Rectal Surgery 02/13/22 Leandro Cruz, DERRICK [address] [place] [address] Floor Installer Post Acute Care 02/24/22 Gurjit Delcid MD [address] [place] [address] Referring Internal Medicine 03/10/22 Estefany Stern, PT [address] [place] [address] Floor Installer Post Acute Care 03/11/22 Wash Crew Person Relationship Specialty Start Date End Date Caty Bowens MD [address] [place] [address] Hematology/Oncology 05/29/21 Marisela Rome MD, [address] [place] [address] Physician Radiation Oncology 05/30/21 Amelia Souza, RN Specialty Deep Submergence Vehicle Operator Oncology 06/04/21 Helen Roa [address] [address] Cardiology 01/07/22 Ramiro Cheung MD [address] [phone] Home Care Provider Colon and Rectal Surgery 02/13/22 Leandro Cruz, RN [address] [place] [address] Floor Installer Post Acute Care 02/24/22 Gurjit Delcid MD [address] [place], [place] [address]268395 Referring Internal Medicine 03/10/22 Estefany Stern, PT [address] [place], [place] 9902631 Floor Installer Post Acute Care 03/11/22 Wash Crew Person Relationship Specialty Start Date End Date Caty Bowens MD [address] [place] [address] Hematology/Oncology 05/29/21 Marisela Rome MD, [address] [place] [address] Physician Radiation Oncology 05/30/21 Amelia Souza, RN Specialty Deep Submergence Vehicle Operator Oncology 06/04/21 Helen Roa [address] [address] Cardiology 01/07/22 Ramiro Cheung MD [address] [address] Home Care Provider Colon and Rectal Surgery 02/13/22 Leandro Cruz, RN [address] [place], [place] 9456831 Floor Installer Post Acute Care 02/24/22 Gurjit Delcid MD [address] [place] [address] Referring Internal Medicine 03/10/22 Estefany Stern, RANDALL [address] [place] [address] Floor Installer Post Acute Care 03/11/22 Wash Crew Person Relationship Specialty Start Date End Date Caty Bowens MD [address] [place] [address] Hematology/Oncology 05/29/21 Marisela Rome MD, [address] [place], [place] [phone] Physician Radiation Oncology 05/30/21 Amelia Souza, DERRICK Specialty Deep Submergence Vehicle Operator Oncology 06/04/21 Helen Roa [address] [phone] Cardiology 01/07/22 Ramiro Cheung MD [address] [facility] [address] [address] Home Care Provider Colon and Rectal Surgery 02/13/22 Leandro Cruz, RN [address] [place] [address] Floor Installer Post Acute Care 02/24/22 Gurjit Delcid MD [address] [place] [address] Referring Internal Medicine 03/10/22 Estefany Stern, PT [address] [place] [address] Floor Installer Post Acute Care 03/11/22 Wash Crew Person Relationship Specialty Start Date End Date Caty Bowens MD [address] [place] [address] Hematology/Oncology 05/29/21 Marisela oRme MD, [address] [place] [address] Physician Radiation Oncology 05/30/21 Amelia Souza, RN Specialty Deep Submergence Vehicle Operator Oncology 06/04/21 Helen Roa [address] [address] Cardiology 01/07/22 Ramiro Cheung MD [address] [address] Home Care Provider Colon and Rectal Surgery 02/13/22 Leandro Cruz, RN [address] [place] [address] Floor Installer Post Acute Care 02/24/22 Gurjit Delcid MD [address] [place] [address] Referring Internal Medicine 03/10/22 Estefany Stern, PT [address] [place] [address] Floor Installer Post Acute Care 03/11/22 Wash Crew Person Relationship Specialty Start Date End Date Caty Bowens MD [address] [place] [address] Hematology/Oncology 05/29/21 Marisela Rome MD, [address] [place] [address] Physician Radiation Oncology 05/30/21 Amelia Souza RN Specialty Deep Submergence Vehicle Operator Oncology 06/04/21 Helen Roa [address] [facility] [address] [address] Cardiology 01/07/22 Ramiro Cheung MD [address] [address] Home Care Provider Colon and Rectal Surgery 02/13/22 Lenadro Cruz, DERRICK [address] [place] [address] Floor Installer Post Acute Care 02/24/22 Gurjit Delcid MD [address] [place] [address] Referring Internal Medicine 03/10/22 Estefany Stern, PT [address] [place] [address] Floor Installer Post Acute Care 03/11/22 Wash Crew Person Relationship Specialty Start Date End Date Caty Bowens MD [address] [place] [address] Hematology/Oncology 05/29/21 Marisela Rome MD, [address] [place], [place] [phone] Physician Radiation Oncology 05/30/21 Amelia Souza RN Specialty Deep Submergence Vehicle Operator Oncology 06/04/21 Helen Roa [address] [address] Cardiology 01/07/22 Ramiro Cheung MD [address] [address] Home Care Provider Colon and Rectal Surgery 02/13/22 Leandro Cruz RN [address] [place], [place] 8554431 Floor Installer Post Acute Care 02/24/22 Gurjit Delcid MD [address] [place], [place] [phone] Referring Internal Medicine 03/10/22 Estefany Stern, PT [address] [place], [place] 4140831 Floor Installer Post Acute Care 03/11/22 Wash Crew Person Relationship Specialty Start Date End Date Katy Faust MD [address] [place], [place] [id number] PCP - General Internal Medicine 04/06/22 Caty Bowens MD [address] [place], [place] [phone] Hematology/Oncology 05/29/21 Marisela Rome MD, [address] [place], [place] [phone] Physician Radiation Oncology 05/30/21 Amelia Souza RN Specialty Deep Submergence Vehicle Operator Oncology 06/04/21 Helen Roa [address] [phone] Cardiology 01/07/22 Ramiro Cheung MD [address] [address] Home Care Provider Colon and Rectal Surgery 02/13/22 Leandro Cruz RN [address] [place], [place] 0532331 Floor Installer Post Acute Care 02/24/22 Gurjit Delcid MD [address] [place], [place] 2586395 Referring Internal Medicine 03/10/22 Estefany Stern, PT [address] [place] 8830731 Floor Installer Post Acute Care 03/11/22 Wash Crew Person Relationship Specialty Start Date End Date Katy Faust MD [address] [place], [place] [phone] PCP - General Internal Medicine 04/06/22 Caty Bowens MD [address] [place] [phone] Hematology/Oncology 05/29/21 Marisela Rome MD, [address] [place], [place] [phone] Physician Radiation Oncology 05/30/21 Amelia Souza, RN Specialty Deep Submergence Vehicle Operator Oncology 06/04/21 Helen Roa [address] [phone] Cardiology 01/07/22 Ramiro Cheung MD 5603 [facility] [address] [place] [address] Home Care Provider Colon and Rectal Surgery 02/13/22 Leandro Cruz, RN [address] [place] [address] Floor Installer Post Acute Care 02/24/22 Gurjit Delcid MD [address] [place] [address] Referring Internal Medicine 03/10/22 Estefany Stern, PT [address] [place] [address] Floor Installer Post Acute Care 03/11/22 Wash Crew Person Relationship Specialty Start Date End Date Katy Faust MD [address] [place], [place] [id number] PCP - General Internal Medicine 04/06/22 Caty Bowens MD [address] [place], [place] [phone] Hematology/Oncology 05/29/21 Marisela Rome MD, [address] [place], [place] [phone] Physician Radiation Oncology 05/30/21 Amelia Souza RN Specialty Deep Submergence Vehicle Operator Oncology 06/04/21 Helen Roa [address] [address] Cardiology 01/07/22 Ramiro Cheung MD [address] [address] Home Care Provider Colon and Rectal Surgery 02/13/22 Leandro Cruz, DERRICK [address] [place] [address] Floor Installer Post Acute Care 02/24/22 Gurjit Delcid MD [address] [place], [place] [phone] Referring Internal Medicine 03/10/22 Estefany Stern, PT [address] [place], [place] 8795831 Floor Installer Post Acute Care 03/11/22 Wash Crew Person Relationship Specialty Start Date End Date Katy Faust MD [address] [place], [place] [id number] PCP - General Internal Medicine 04/06/22 Caty Bowens MD [address] [place], [place] [phone] Hematology/Oncology 05/29/21 Marisela Rome MD, [address] [place], [place] 64975691 Physician Radiation Oncology 05/30/21 Amelia Souza, RN Specialty Deep Submergence Vehicle Operator Oncology 06/04/21 Helen Roa [address] [address] Cardiology 01/07/22 Ramiro Cheung MD [address] [phone] Home Care Provider Colon and Rectal Surgery 02/13/22 Leandro Cruz, DERRICK [address] [place] [address] Floor Installer Post Acute Care 02/24/22 Gurjit Delcid MD 10[address] [place], [place] [phone] Referring Internal Medicine 03/10/22 Estefany Stern, PT [address] [place] [address] Floor Installer Post Acute Care 03/11/22 Wash Crew Person Relationship Specialty Start Date End Date Katy Faust MD [address]40 [place], [place] [id number] PCP - General Internal Medicine 04/06/22 Caty Bowens MD [address] [place], [place] [phone] Hematology/Oncology 05/29/21 Marisela Rome MD, [address] [place] [address] Physician Radiation Oncology 05/30/21 Amelia Souza, RN Specialty Deep Submergence Vehicle Operator Oncology 06/04/21 Helen Roa [address] [address] Cardiology 01/07/22 Ramiro Cheung MD [address] [place] [address] Home Care Provider Colon and Rectal Surgery 02/13/22 Leandro Cruz, RN 9691 [place], [place] 7194431 Floor Installer Post Acute Care 02/24/22 Gurjit Delcid MD 8436 [place] [address] Referring Internal Medicine 03/10/22 Estefany Stern, PT [address]01 [place] [address] Floor Installer Post Acute Care 03/11/22 Wash Crew Person Relationship Specialty Start Date End Date Katy Faust MD [address] [place], [place] [id number] PCP - General Internal Medicine 04/06/22 Caty Bowens MD [address] [place] [address] Hematology/Oncology 05/29/21 Marisela Rome MD, [address] [place], [place] 42568691 Physician Radiation Oncology 05/30/21 Amelia Souza RN Specialty Deep Submergence Vehicle Operator Oncology 06/04/21 Helen Roa [address] [phone] Cardiology 01/07/22 [facility] MD [facility] [address] [address] Home Care Provider Colon and Rectal Surgery 02/13/22 Leandro Cruz RN 4591 [place] [address] Floor Installer Post Acute Care 02/24/22 Gurjit Delcid MD 4331 [place] [address] Referring Internal Medicine 03/10/22 AnujaLeniLeigh Estefany, PT [address] [place] [address] Floor Installer Post Acute Care 03/11/22 Team Status: Active [...] MD Primary Care Provider Active Carlos Trujillo BOX COVERER HAND, BOX COVERER HAND-C Attending Provider Active Team Status: Inactive Member Role Status Dates Dr. Katy Faust MD Primary Care Provider Active hBavna CAMACHO, PA Attending Provider Active Team Status: [...] DO Attending Provider, Emergency P rovider Active Wash Crew Person Relationship Specialty Start Date End Date Katy Faust MD [address] [place], [place] [id number] PCP - General Internal Medicine 04/06/22 Caty Bowens MD 9[address] [place] [address] Hematology/Oncology 05/29/21 Marisela Rome MD, [address] [place], [place] [phone] Physician Radiation Oncology 05/30/21 Amelia Souza, DERRICK Specialty Deep Submergence Vehicle Operator Oncology 06/04/21 Helen Roa [address] [address] Cardiology 01/07/22 Ramiro Cheung MD [address] [address] Home Care Provider Colon and Rectal Surgery 02/13/22 Leandro Cruz, RN [address] [place] [address] Floor Installer Post Acute Care 02/24/22 Gurjit Delcid MD 1022 [place], [place] 4537695 Referring Internal Medicine 03/10/22 Estefany Stern, PT [address] [place], [place] 6434531 Floor Installer Post Acute Care 03/11/22 Wash Crew Person Relationship Specialty Start Date End Date Katy Faust MD 1740 [place], [place] [id number] PCP - General Internal Medicine 04/06/22 Caty Bowens MD 0353 [place], [place] [phone] Hematology/Oncology 05/29/21 Marisela Rome MD, [address] [place] [address] Physician Radiation Oncology 05/30/21 Amelia Souza, RN Specialty Deep Submergence Vehicle Operator Oncology 06/04/21 Helen Roa [address] [address] Cardiology 01/07/22 Ramiro Cheung MD [address] [place] [address] [place] [address] Home Care Provider Colon and Rectal Surgery 02/13/22 Leandro Cruz, RN 6[address] [place] [address] Floor Installer Post Acute Care 02/24/22 Gurjit Delcid MD [address]10 [place], [place] [phone] Referring Internal Medicine 03/10/22 Estefany Stern, PT 6801 [place] [address] Floor Installer Post Acute Care 03/11/22 Wash Crew Person Relationship Specialty Start Date End Date Katy Faust MD 1740 [place], [place] [id number] PCP - General Internal Medicine 04/06/22 Caty Bowens MD 15[address] [place] [address] Hematology/Oncology 05/29/21 Marisela Rome MD, [address] [place] [place], [place] [phone] Physician Radiation Oncology 05/30/21 Amelia Souza, RN Specialty Deep Submergence Vehicle Operator Oncology 06/04/21 Helen Roa [address] [facility] [address] [place] [address] Cardiology 01/07/22 Ramiro Cheung MD [address] [address] Home Care Provider Colon and Rectal Surgery 02/13/22 Leandro Cruz, DERRICK [address] [place], [place] 3478931 Floor Installer Post Acute Care 02/24/22 Gurjit Delcid MD [address] [place] [address] Referring Internal Medicine 03/10/22 Estefany Stern, PT [address] [place], [place] 4061231 Floor Installer Post Acute Care 03/11/22 Wash Crew Person Relationship Specialty Start Date End Date Katy Fuast MD [address] [place], [place] [id number] PCP - General Internal Medicine 04/06/22 Caty Bowens MD [address] [place] [address] Hematology/Oncology 05/29/21 Marisela Rome MD, [address] [place], [place] 13781691 Physician Radiation Oncology 05/30/21 Amelia Souza RN Specialty Deep Submergence Vehicle Operator Oncology 06/04/21 Helen Roa [address] [address] Cardiology 01/07/22 Ramiro [facility]ung MD [facility] [address] [address] Home Care Provider Colon and Rectal Surgery 02/13/22 Leandro Cruz RN 6401 [place], [place] 4028131 Floor Installer Post Acute Care 02/24/22 Gurjit Delcid MD 3578 [place], [place] 9303995 Referring Internal Medicine 03/10/22 Estefany Stern, PT 68[address] [place], [place] 1042831 Floor Installer Post Acute Care 03/11/22 Wash Crew Person Relationship Specialty Start Date End Date Katy Faust MD 1740 [place], [place] [id number] PCP - General Internal Medicine 04/06/22 Caty Bowens MD [address] [place] 0285195 Hematology/Oncology 05/29/21 Marisela Rome MD, [address] [place], [place] 90756691 Physician Radiation Oncology 05/30/21 Amelia Souza RN Specialty Deep Submergence Vehicle Operator Oncology 06/04/21 Helen Roa [address] [phone] Cardiology 01/07/22 Ramiro Cheung MD [address] 4999[address] [place] [address] Home Care Provider Colon and Rectal Surgery 02/13/22 Leandro Cruz, RN 4524 [place] [address] Floor Installer Post Acute Care 02/24/22 Gurjit Delcid MD 8520 [place] [address] Referring Internal Medicine 03/10/22 Estefany Stern, PT [address] [place], [place] 6081131 Floor Installer Post Acute Care 03/11/22 Wash Crew Person Relationship Specialty Start Date End Date Katy Faust MD 174 [place], [place] [id number] PCP - General Internal Medicine 04/06/22 Caty Bowens MD 4[address] [place], [place] 6597695 Hematology/Oncology 05/29/21 Marisela Rome MD, [address] [place] [place], [place] 75511691 Physician Radiation Oncology 05/30/21 Amelia Souza, DERRICK Specialty Deep Submergence Vehicle Operator Oncology 06/04/21 Helen Roa [address] [phone] Cardiology 01/07/22 Ramiro Cheung MD [address] [phone] Home Care Provider Colon and Rectal Surgery 02/13/22 Leandro Cruz, RN [address] [place], [place] 6302531 Floor Installer Post Acute Care 02/24/22 Gurjit Delcid MD 4445 [place] [address] Referring Internal Medicine 03/10/22 Estefany Stern, PT 68[address] [place] [address] Floor Installer Post Acute Care 03/11/22 Wash Crew Person Relationship Specialty Start Date End Date Katy Faust MD 174 [place], [place] [id number] PCP - General Internal Medicine 04/06/22 Caty Bowens MD 0439 [place], [place] 1234420 Hematology/Oncology 05/29/21 Marisela Rome MD, [address] [place] [place], [place] 79827691 Physician Radiation Oncology 05/30/21 Amelia Souza, RN Specialty Deep Submergence Vehicle Operator Oncology 06/04/21 Helen Roa [address] [address] Cardiology 01/07/22 Ramiro Cheung MD [address] [address] Home Care Provider Colon and Rectal Surgery 02/13/22 Gurjit Delcid MD [address]15 [place], [place] 0488195 Referring Internal Medicine 03/10/22 Estefany Stern, PT 68[address] [place], [place] 1625231 Floor Installer Post Acute Care 03/11/22 Wash Crew Person Relationship Specialty Start Date End Date Katy Faust MD 17[address] [place], [place] [id number] PCP - General Internal Medicine 04/06/22 Caty Bowens MD 6808 [place] [address] Hematology/Oncology 05/29/21 Marisela Rome MD, [address] [place] [address] Physician Radiation Oncology 05/30/21 Amelia Souza, RN Specialty Deep Submergence Vehicle Operator Oncology 06/04/21 Helen Roa [address] [address] Cardiology 01/07/22 Ramiro [facility]ung MD 9500 [facility] [address] [address] Home Care Provider Colon and Rectal Surgery 02/13/22 Gurjit Delcid MD 9500 [place] [address] Referring Internal Medicine 03/10/22 Estefany Stern, PT [address] [place], [place] 2692731 Floor Installer Post Acute Care 03/11/22 Wash Crew Person Relationship Specialty Start Date End Date Katy Faust MD 17[address] [place], [place] [id number] PCP - General Internal Medicine 04/06/22 [place] [address] [place] [address] Hematology/Oncology 05/29/21 Marisela Rome MD, [address] [place], [place] 41094691 Physician Radiation Oncology 05/30/21 Amelia Souza, RN Specialty Deep Submergence Vehicle Operator Oncology 06/04/21 Helen Roa [address] [address] Cardiology 01/07/22 Ramiro [facility]ung MD [facility]00 [facility] [address] [address] Home Care Provider Colon and Rectal Surgery 02/13/22 Gurjit Delcid MD 7784 [place] [address] Referring Internal Medicine 03/10/22 Estefany Stern, PT [address] [place] [address] Floor Installer Post Acute Care 03/11/22 Wash Crew Person Relationship Specialty Start Date End Date Katy Faust MD [address]40 [place], [place] [id number] PCP - General Internal Medicine 04/06/22 Caty Bowens MD 3592 [place], [place] 3747995 Hematology/Oncology 05/29/21 Marisela Rome MD, [address] [place], [place] 16238691 Physician Radiation Oncology 05/30/21 Amelia Souza, DERRICK Specialty Deep Submergence Vehicle Operator Oncology 06/04/21 Helen Roa [address] [address] Cardiology 01/07/22 Ramiro Cheung MD [address] [address] Home Care Provider Colon and Rectal Surgery 02/13/22 Gurjit Delcid MD 7930 [place] [address] Referring Internal Medicine 03/10/22 Estefany Stern, PT [address] [place] [address] Floor Installer Post Acute Care 03/11/22 Wash Crew Person Relationship Specialty Start Date End Date Katy Faust MD 1740 [place], [place] [id number] PCP - General Internal Medicine 04/06/22 Caty Bowens MD 5160 [place] [address] Hematology/Oncology 05/29/21 Mariesla Rome MD, [address] [place] [address] Physician Radiation Oncology 05/30/21 Amelia Souza, RN Specialty Deep Submergence Vehicle Operator Oncology 06/04/21 Helen Roa [address] [address] Cardiology 01/07/22 Ramiro Cheung MD [address] 6347295 Home Care Provider Colon and Rectal Surgery 02/13/22 Gurjit Delcid MD [address] [place], [place] 3087995 Referring Internal Medicine 03/10/22 Estefany Stern, PT 68[address] [place], [place] 5348331 Floor Installer Post Acute Care 03/11/22 Wash Crew Person Relationship Specialty Start Date End Date Katy Faust MD 1740 [place], [place] [id number] PCP - General Internal Medicine 04/06/22 Caty Bowens MD 6[address] [place] [address] Hematology/Oncology 05/29/21 Marisela Rome MD, [address] [address] Physician Radiation Oncology 05/30/21 Amelia Souza, RN Specialty Deep Submergence Vehicle Operator Oncology 06/04/21 Helen Roa [address] [address] Cardiology 01/07/22 Ramiro [facility]ung MD 3920 [facility] [address] [address] Home Care Provider Colon and Rectal Surgery 02/13/22 Gurjit Delcid MD 7410 [place] [address] Referring Internal Medicine 03/10/22 Estefany Stern, PT 9[address] [place], [place] 0455231 Floor Installer Post Acute Care 03/11/22 Wash Crew Person Relationship Specialty Start Date End Date Katy Faust MD [address]40 [place], [place] [id number] PCP - General Internal Medicine 04/06/22 [place] [address] [place] [address] Hematology/Oncology 05/29/21 Marisela Rome MD, [address] [place], [place] 64900691 Physician Radiation Oncology 05/30/21 Amelia Souza, RN Specialty Deep Submergence Vehicle Operator Oncology 06/04/21 Helen Roa [address] [phone] Cardiology 01/07/22 Ramiro Cheung MD [address] [address] Home Care Provider Colon and Rectal Surgery 02/13/22 Gurjit Delcid MD 1730 [place] [address] Referring Internal Medicine 03/10/22 Estefany Stern, PT 0[address] [place], [place] 0960631 Floor Installer Post Acute Care 03/11/22 Wash Crew Person Relationship Specialty Start Date End Date Katy Faust MD 174 [place], [place] [id number] PCP - General Internal Medicine 04/06/22 Caty Bowens MD [address] [place], [place] 8876195 Hematology/Oncology 05/29/21 Marisela Rome MD, [address] [place], [place] 28598691 Physician Radiation Oncology 05/30/21 Amelia Souza, DERRICK Specialty Deep Submergence Vehicle Operator Oncology 06/04/21 Helen Roa [address] [phone] Cardiology 01/07/22 Ramiro Cheung MD [address] [address] Home Care Provider Colon and Rectal Surgery 02/13/22 Leandro Cruz, RN [address] [place], [place] 4182231 Floor Installer Post Acute Care 02/24/22 04/23/22 Gurjit Delcid MD 2926 [place] [address] Referring Internal Medicine 03/10/22 Estefany Stern, PT 68[address] [place] [address] Floor Installer Post Acute Care 03/11/22 Wash Crew Person Relationship Specialty Start Date End Date Katy Faust MD [address] [place], [place] [id number] PCP - General Internal Medicine 04/06/22 Caty Bowens MD 7837 [place] [address] Hematology/Oncology 05/29/21 Marisela Rome MD, [address] [place], [place] 17948691 Physician Radiation Oncology 05/30/21 Amelia Souza, RN Specialty Deep Submergence Vehicle Operator Oncology 06/04/21 Helen Roa [address] [phone] Cardiology 01/07/22 Ramiro Cheung MD [address] [place] [address] Home Care Provider Colon and Rectal Surgery 02/13/22 Gurjit Delcid MD [address] [place] [phone] Referring Internal Medicine 03/10/22 Estefany Stern, PT [address] [place], [place] 8020131 Floor Installer Post Acute Care 03/11/22 Wash Crew Person Relationship Specialty Start Date End Date Katy Faust MD [address] [place], [place] [id number] PCP - General Internal Medicine 04/06/22 Caty Bowens MD 7771 [place] [address] Hematology/Oncology 05/29/21 Marisela Rome MD, [address] [place], [place] 06447691 Physician Radiation Oncology 05/30/21 Amelia Souza, RN Specialty Deep Submergence Vehicle Operator Oncology 06/04/21 Helen Roa [address] [address] Cardiology 01/07/22 Ramiro Cheung MD 9220 [facility] [address] [address] Home Care Provider Colon and Rectal Surgery 02/13/22 Gurjit Delcid MD 9500 [place] [address] Referring Internal Medicine 03/10/22 Estefany Stern, PT [address] [place], [place] 1905431 Floor Installer Post Acute Care 03/11/22 Wash Crew Person Relationship Specialty Start Date End Date Katy Faust MD 1740 [place], [place] [id number] PCP - General Internal Medicine 04/06/22 Caty Bowens MD [address]00 [place] [address] Hematology/Oncology 05/29/21 Marisela Rome MD, [address] [place], [place] 46004691 Physician Radiation Oncology 05/30/21 Amelia Souza, RN Specialty Deep Submergence Vehicle Operator Oncology 06/04/21 Helen Roa [address] [address] Cardiology 01/07/22 Ramiro Cheung MD 7360 [facility] [place] [address] [address] Home Care Provider Colon and Rectal Surgery 02/13/22 Gurjit Delcid MD 7310 [place] [address] Referring Internal Medicine 03/10/22 Estefany Stern, PT [address] [place] [address] Floor Installer Post Acute Care 03/11/22 Wash Crew Person Relationship Specialty Start Date End Date Katy Faust MD [address] [place], [place] 255241 PCP - General Internal Medicine 04/06/22 Caty Bowens MD 0[address] [place], [place] [phone] Hematology/Oncology 05/29/21 Marisela Rome MD, [address] [place], [place] 10069691 Physician Radiation Oncology 05/30/21 Amelia Souza, RN Specialty Deep Submergence Vehicle Operator Oncology 06/04/21 Helen Roa [address] [address] Cardiology 01/07/22 Ramiro Cheung MD [address] [phone] Home Care Provider Colon and Rectal Surgery 02/13/22 Gurjit Delcid MD 7360 [place], [place] 8694195 Referring Internal Medicine 03/10/22 Estefany Stern, PT [address] [place] [address] Floor Installer Post Acute Care 03/11/22 Wash Crew Person Relationship Specialty Start Date End Date Katy Faust MD [address] [place], [place] [id number] PCP - General Internal Medicine 04/06/22 Caty Bowens MD [address]50 [place] [address] Hematology/Oncology 05/29/21 Marisela Rome MD, [address] [place] [address] Physician Radiation Oncology 05/30/21 Amelia Souza, RN Specialty Deep Submergence Vehicle Operator Oncology 06/04/21 Helen Roa [address] [address] Cardiology 01/07/22 Ramiro Cheung MD [address] [phone] Home Care Provider Colon and Rectal Surgery 02/13/22 Gurjit Delcid MD 7838 [place], [place] 8707895 Referring Internal Medicine 03/10/22 Estefany Stern, PT [address] [place], [place] 9279431 Floor Installer Post Acute Care 03/11/22 Wash Crew Person Relationship Specialty Start Date End Date Katy Faust MD [address] [place], [place] [id number] PCP - General Internal Medicine 04/06/22 Caty Bowens MD 0315 [place] [address] Hematology/Oncology 05/29/21 Marisela Rome MD, [address] [address] Physician Radiation Oncology 05/30/21 Amelia Souza, RN Specialty Deep Submergence Vehicle Operator Oncology 06/04/21 Helen Roa [address] [address] Cardiology 01/07/22 Ramiro Cheung MD [address] [place] [address] Home Care Provider Colon and Rectal Surgery 02/13/22 Gurjit Delcid MD 5010 [place] [address] Referring Internal Medicine 03/10/22 Estefany Stern, PT [address] [place], [place] 7402631 Floor Installer Post Acute Care 03/11/22 Wash Crew Person Relationship Specialty Start Date End Date Katy Faust MD [address] [place], [place] [id number] PCP - General Internal Medicine 04/06/22 Caty Bowens MD 9500 [place] [address] Hematology/Oncology 05/29/21 Marisela Rome MD, [address] [place], [place] 31608691 Physician Radiation Oncology 05/30/21 Amelia Souza, RN Specialty Deep Submergence Vehicle Operator Oncology 06/04/21 Helen Roa [address] [address] Cardiology 01/07/22 Ramiro Cheung MD 9500 [facility] [address] [address] [address] Home Care Provider Colon and Rectal Surgery 02/13/22 Gurjit Delcid MD 9350 [place] [address] Referring Internal Medicine 03/10/22 Estefany Stern, PT [address] [place], [place] 0543331 Floor Installer Post Acute Care 03/11/22 Wash Crew Person Relationship Specialty Start Date End Date Katy Faust MD 1740 [place], [place] 550041 PCP - General Internal Medicine 04/06/22 Caty Bowens MD [address] [place] [phone] Hematology/Oncology 05/29/21 Marisela Rome MD, [address] [place], [place] 93971691 Physician Radiation Oncology 05/30/21 Amelia Souza, RN Specialty Deep Submergence Vehicle Operator Oncology 06/04/21 Helen Roa [address] [phone] Cardiology 01/07/22 Ramiro Cheung MD [address]00 [place] [address] Home Care Provider Colon and Rectal Surgery 02/13/22 [place] [address] [place], [place] 3791295 Referring Internal Medicine 03/10/22 Estefany Stern, PT [address] [place] [address] Floor Installer Post Acute Care 03/11/22 Wash Crew Person Relationship Specialty Start Date End Date Katy Faust MD 174 [place] [address] PCP - General Internal Medicine 04/06/22 Caty Bowens MD 9500 [place] [address] Hematology/Oncology 05/29/21 Marisela Rome MD, [address] [place], [place] 82560691 Physician Radiation Oncology 05/30/21 Amelia Souza, DERRICK Specialty Deep Submergence Vehicle Operator Oncology 06/04/21 Helen Roa [address] [phone] Cardiology 01/07/22 Ramiro Cheung MD [address] [place] [phone] Home Care Provider Colon and Rectal Surgery 02/13/22 Gurjit Delcid MD 9500 [place], [place] [phone] Referring Internal Medicine 03/10/22 Estefany Stern, PT [address] [place], [place] 1303531 Floor Installer Post Acute Care 03/11/22 Wash Crew Person Relationship Specialty Start Date End Date Kayt Faust MD 1740 [place], [place] 676941 PCP - General Internal Medicine 04/06/22 Caty Bowens MD 9500 [place] [address] Hematology/Oncology 05/29/21 Marisela Rome MD, [address] [place], [place] 133231 Physician Radiation Oncology 05/30/21 Amelia Souza, RN Specialty Deep Submergence Vehicle Operator Oncology 06/04/21 Helen Roa [address] [phone] Cardiology 01/07/22 Ramiro Cheung MD [address] [phone] Home Care Provider Colon and Rectal Surgery 02/13/22 Gurjit Delcid MD 9500 [place], [place] [phone] Referring Internal Medicine 03/10/22 Estefany Stern, PT 6801 [place] [address] Floor Installer Post Acute Care 03/11/22 Wash Crew Person Relationship Specialty Start Date End Date Katy Faust MD [address]40 [place], [place] [id number] PCP - General Internal Medicine 04/06/22 Caty Bowens MD 9500 [place] [address] Hematology/Oncology 05/29/21 Marisela Rome MD, [address] [place], [place] [phone] Physician Radiation Oncology 05/30/21 Amelia Souza, RN Specialty Deep Submergence Vehicle Operator Oncology 06/04/21 Helen Roa [address] [phone] Cardiology 01/07/22 Ramiro Cheung MD [address] [phone] Home Care Provider Colon and Rectal Surgery 02/13/22 Gurjit Delcid MD [address] [place], [place] [phone] Referring Internal Medicine 03/10/22 Estefany Stern, PT 6801 [place], [place] 6131631 Floor Installer Post Acute Care 03/11/22 Wash Crew Person Relationship Specialty Start Date End Date Katy Faust MD 1740 [place], [place] [id number] PCP - General Internal Medicine 04/06/22 Caty Bowens MD [address] [place] [phone] Hematology/Oncology 05/29/21 Marisela Rome MD, [address] [place], [place] 13671691 Physician Radiation Oncology 05/30/21 Amelia Souza RN Specialty Deep Submergence Vehicle Operator Oncology 06/04/21 Helen Roa [address] [phone] Cardiology 01/07/22 Ramiro Cheung MD [address] [address] Home Care Provider Colon and Rectal Surgery 02/13/22 Gurjit Delcid MD [address] [place] [address] Referring Internal Medicine 03/10/22 AnujaLeniLeigh Estefany, PT [address] [place] [address] Floor Installer Post Acute Care 03/11/22 10/06/22 Wash Crew Person Relationship Specialty Start Date End Date Katy Faust MD [facility] [place], [place] 122631 PCP - General Internal Medicine 04/06/22 Caty Bowens MD [address] [place] [phone] Hematology/Oncology 05/29/21 Marisela [place] MD, [address] [place], [place] [phone] Physician Radiation Oncology 05/30/21 Amelia Souza, DERRICK Specialty Deep Submergence Vehicle Operator Oncology 06/04/21 Helen Roa [address] [phone] Cardiology 01/07/22 [place] [address] [place] [address] Home Care Provider Colon and Rectal Surgery 02/13/22 Gurjit Delcid MD [address] [place] [address] Referring Internal Medicine 03/10/22 Wash Crew Person Relationship Specialty Start Date End Date Katy Faust MD [address] [place] [address] PCP - General Internal Medicine 04/06/22 Caty Bowens MD [address] [place] [address] Hematology/Oncology 05/29/21 Marisela [place] MD, [address] [place] [address] Physician Radiation Oncology 05/30/21 Amelia Souza, DERRICK Specialty Deep Submergence Vehicle Operator Oncology 06/04/21 Helen Roa [address] [phone] Cardiology 01/07/22 Ramiro Cheung MD [address] [address] Home Care Provider Colon and Rectal Surgery 02/13/22 Gurjit Delcid MD [address] [place] [address] Referring Internal Medicine 03/10/22 Wash Crew Person Relationship Specialty Start Date End Date Katy Faust MD [address] [place] [address] PCP - General Internal Medicine 04/06/22 Caty Bowens MD [address] [place] [address] Hematology/Oncology 05/29/21 Marisela [place] MD, [address] [place] [address] Physician Radiation Oncology 05/30/21 Amelia Souza, RN Specialty Deep Submergence Vehicle Operator Oncology 06/04/21 Helen Roa [address] [phone] Cardiology 01/07/22 Ramiro Cheung MD [address] [place], [place] [phone] Home Care Provider Colon and Rectal Surgery 02/13/22 Gurjit Delcid MD [address] [place], [place] [phone] Referring Internal Medicine 03/10/22 Wash Crew Person Relationship Specialty Start Date End Date Katy Faust MD [address] [place], [place] [id number] PCP - General Internal Medicine 04/06/22 Caty Bowens MD [address] [place], [place] [phone] Hematology/Oncology 05/29/21 Marisela [place] MD, [address] [place], [place] [phone] Physician Radiation Oncology 05/30/21 Amelia Souza, DERRICK Specialty Deep Submergence Vehicle Operator Oncology 06/04/21 Helen Roa [address] [phone] Cardiology 01/07/22 Ramiro Cheung MD [address] [place], [place] 1488195 Home Care Provider Colon and Rectal Surgery 02/13/22 Gurjit Delcid MD [address] [place], [place] 6234395 Referring Internal Medicine 03/10/22 Wash Crew Person Relationship Specialty Start Date End Date Katy Fasut MD [address] [place] [address] 235591 PCP - General Internal Medicine 04/06/22 Caty Bowens MD [address] [place], [place] [phone] Hematology/Oncology 05/29/21 Marisela [place] MD, [address] [place], [place] [phone] Physician Radiation Oncology 05/30/21 Amelia Souza, RN Specialty Deep Submergence Vehicle Operator Oncology 06/04/21 Helen Roa [address] [phone] Cardiology 01/07/22 Ramiro Cheung MD [address] [place], [place] 1488195 Home Care Provider Colon and Rectal Surgery 02/13/22 Gurjit Delcid MD [address] [place] [address] Referring Internal Medicine 03/10/22 Wash Crew Person Relationship Specialty Start Date End Date Katy Faust MD [address]40 [place] [address] PCP - General Internal Medicine 04/06/22 Caty Bowens MD [address] [place] [address] Hematology/Oncology 05/29/21 Marisela [place] MD, [address] [place] [address] Physician Radiation Oncology 05/30/21 Amelia Souza, DERRICK Specialty Deep Submergence Vehicle Operator Oncology 06/04/21 Helen Roa [address] [place] [phone] Cardiology 01/07/22 [place] [address] [place], [place] 4393595 Home Care Provider Colon and Rectal Surgery 02/13/22 [place] [address] [place] [address] Referring Internal Medicine 03/10/22 Wash Crew Person Relationship Specialty Start Date End Date Katy Faust MD [address]40 [place] [address] PCP - General Internal Medicine 04/06/22 Caty Bowens MD [address] [place] [address] Hematology/Oncology 05/29/21 Marisela [place] MD, [address] [place] [address] Physician Radiation Oncology 05/30/21 Amelia Souza, RN Specialty Deep Submergence Vehicle Operator Oncology 06/04/21 Helen Roa [address] [phone] Cardiology 01/07/22 Ramiro Cheung MD [address] [address] Home Care Provider Colon and Rectal Surgery 02/13/22 Gurjit Delcid MD [address] [place], [place] [phone] Referring Internal Medicine 03/10/22 Wash Crew Person Relationship Specialty Start Date End Date Katy Faust MD [address] [place], [place] 614661 PCP - General Internal Medicine 04/06/22 Caty Bowens MD [address] [place] [address] Hematology/Oncology 05/29/21 Marisela [place] MD [address] [place] [address] Physician Radiation Oncology 05/30/21 Amelia Souza, DERRICK Specialty Deep Submergence Vehicle Operator Oncology 06/04/21 Helen Roa MD [address] [address] Cardiology 01/07/22 Ramiro Cheung MD [address] [place] [address] Home Care Provider Colon and Rectal Surgery 02/13/22 Gurjit Delcid MD [address] [place] [address] Referring Internal Medicine 03/10/22 Wash Crew Person Relationship Specialty Start Date End Date Katy Faust MD [address] [place] [address] PCP - General Internal Medicine 04/06/22 Caty Bowens MD [address] [place] [address] Hematology/Oncology 05/29/21 Marisela [place] MD [address] [place] [address] Physician Radiation Oncology 05/30/21 Amelia Souza, RN Specialty Deep Submergence Vehicle Operator Oncology 06/04/21 Helen Roa MD [address] 957901 Cardiology 01/07/22 Ramiro Cheung MD [address] [place] [address] Home Care Provider Colon and Rectal Surgery 02/13/22 Gurjit Delcid MD [address] [place] [phone] Referring Internal Medicine 03/10/22 Wash Crew Person Relationship Specialty Start Date End Date Katy Faust MD [address]40 [place] [address] PCP - General Internal Medicine 04/06/22 Caty Bowens MD [address] [place] [address] Hematology/Oncology 05/29/21 Marisela [place] MD [address] [place], [place] 698171 Physician Radiation Oncology 05/30/21 Amelia Souza, DERRICK Specialty Deep Submergence Vehicle Operator Oncology 06/04/21 Helen Roa MD [address] [phone] Cardiology 01/07/22 [place] [address] [place], [place] 4393595 Home Care Provider Colon and Rectal Surgery 02/13/22 Gurjit Delcid MD [address] [place] [address] Referring Internal Medicine 03/10/22 Wash Crew Person Relationship Specialty Start Date End Date Katy Faust MD [address]40 [place] [address] PCP - General Internal Medicine 04/06/22 Caty Bowens MD [address] [place] [address] Hematology/Oncology 05/29/21 Marisela [place] MD [address] [place], [place] [phone] Physician Radiation Oncology 05/30/21 Amelia Souza, RN Specialty Deep Submergence Vehicle Operator Oncology 06/04/21 Helen Roa MD [address] 211121 Cardiology 01/07/22 Ramiro Cheung MD [address] [address] Home Care Provider Colon and Rectal Surgery 02/13/22 Gurjit Delcid MD [address] [place] [address] Referring Internal Medicine 03/10/22 Team Status: Inactive Member Role Status Dates Dr. Katy Faust MD Primary Care Provider, Referr ing Provider Active Carlos Trujillo BOX COVERER HAND, BOX COVERER HAND-C Attending Provider Active Team Status: Inactive Member [...] Dr. Carmen Rangel MD Emergency Provider Active Wash Crew Person Relationship Specialty Start Date End Date Katy Faust MD [address] [place], [place] 623901 PCP - General Internal Medicine 04/06/22 Caty Bowens MD [address] [place] [address] Hematology/Oncology 05/29/21 Marisela [place] MD [address] [place], [place] [phone] Physician Radiation Oncology 05/30/21 Amelia Souza RN Specialty Deep Submergence Vehicle Operator Oncology 06/04/21 Helen [facility]a MD [facility] [address] [address] Cardiology 01/07/22 Ramiro Cheung MD [address] [place] 499950 [place] [address] Home Care Provider Colon and Rectal Surgery 02/13/22 Gurjit Delcid MD [address] [place] [address] Referring Internal Medicine 03/10/22 Wash Crew Person Relationship Specialty Start Date End Date Katy Faust MD [address] [place], [place] [phone] PCP - General Internal Medicine 04/06/22 Caty Bowens MD [address] [place] 0285195 Hematology/Oncology 05/29/21 Marisela [place] MD [address] [place], [place] [phone] Physician Radiation Oncology 05/30/21 Amelia Souza, RN Specialty Deep Submergence Vehicle Operator Oncology 06/04/21 Helen Roa MD [address] [address] Cardiology 01/07/22 Ramiro Cheung MD [address] [place], [place] 8861295 Home Care Provider Colon and Rectal Surgery 02/13/22 Gurjit Delcid MD [address] [place] [address] Referring Internal Medicine 03/10/22 Team Status: Inactive Member Role Status Dates Dr. Katy Faust MD Primary Care Provider Active Dr. Carmen Rangel MD Attending Provider, Emergency Provider Active Wash Crew Person Relationship Specialty Start Date End Date Katy Faust [address] [place], [place] 845851 PCP - General Internal Medicine 07/14/23 Wash Crew Person Relationship Specialty Start Date End Date Katy Faust MD [address] [place], [place] 009421 PCP - General Internal Medicine 04/06/22 Caty Bowens MD [address] [place], [place] 8022295 Hematology/Oncology 05/29/21 Marisela [place] MD [address] [place] [address] Physician Radiation Oncology 05/30/21 Amelia Souza, DERRICK Specialty Deep Submergence Vehicle Operator Oncology 06/04/21 Helen Roa MD [address] 413621 Cardiology 01/07/22 [place] [address] [place] [address] Home Care Provider Colon and Rectal Surgery 02/13/22 [place] [address] [place], [place] [phone] Referring Internal Medicine 03/10/22 Sabrina Muñiz [address] [place] [address] 115 [place] [address] Colon and Rectal Surgery 07/19/23 Wash Crew Person Relationship Specialty Start Date End Date Katy Faust MD [address] [place], [place] 782411 PCP - General Internal Medicine 04/06/22 Caty Bowens MD [address] [place] [address] Hematology/Oncology 05/29/21 Marisela [place] MD [address] [place] [address] Physician Radiation Oncology 05/30/21 Amelia Souza RN Specialty Deep Submergence Vehicle Operator Oncology 06/04/21 Helen Roa MD [address] 179371 Cardiology 01/07/22 Ramiro Cheung MD [address] [place] 6226395 Home Care Provider Colon and Rectal Surgery 02/13/22 Gurjit Delcid MD [address] [place] [address] Referring Internal Medicine 03/10/22 Sabrina Muñiz [address] [facility] [address] [facility] [address] [place] [address] Colon and Rectal Surgery 07/19/23 Wash Crew Person Relationship Specialty Start Date End Date Katy Faust MD [address] [place], [place] 445071 PCP - General Internal Medicine 04/06/22 Caty Bowens MD [address] [place] [address] Hematology/Oncology 05/29/21 Marisela [place] MD [address] [place], [place] 45288691 Physician Radiation Oncology 05/30/21 Amelia Souza, RN Specialty Deep Submergence Vehicle Operator Oncology 06/04/21 Helen Roa MD [address] [address] Cardiology 01/07/22 Ramiro Cheung MD [address] [place], [place] 1355095 Home Care Provider Colon and Rectal Surgery 02/13/22 Gurjit Delcid MD [address] [place], [place] 6374295 Referring Internal Medicine 03/10/22 Sabrina Muñiz [address] [facility] [address] [place] [address] Colon and Rectal Surgery 07/19/23 Wash Crew Person Relationship Specialty Start Date End Date Katy Faust MD [address] [place], [place] 173271 PCP - General Internal Medicine 04/06/22 Caty Bowens MD [address] [place] 0285195 Hematology/Oncology 05/29/21 Marisela [place] MD [address] [place], [place] [phone] Physician Radiation Oncology 05/30/21 Amelia Souza RN Specialty Deep Submergence Vehicle Operator Oncology 06/04/21 Helen Roa MD [address] [phone] Cardiology 01/07/22 Ramiro Cheung MD [address] [address] Home Care Provider Colon and Rectal Surgery 02/13/22 Gurjit Delcid MD [address] [place] [phone] Referring Internal Medicine 03/10/22 Sabrina Muñiz [address] [place] [address] Colon and Rectal Surgery 07/19/23 Wash Crew Person Relationship Specialty Start Date End Date Katy Faust MD [address]40 [place] [address] PCP - General Internal Medicine 04/06/22 Caty Bowens MD [address] [place] [address] Hematology/Oncology 05/29/21 Marisela [place] MD [address] [place], [place] 65015691 Physician Radiation Oncology 05/30/21 Amelia Souza RN Specialty Deep Submergence Vehicle Operator Oncology 06/04/21 Helen Roa MD [address] [phone] Cardiology 01/07/22 Ramiro Cheung MD [address] [address] Home Care Provider Colon and Rectal Surgery 02/13/22 Gurjit Delcid MD [address] [place] [phone] Referring Internal Medicine 03/10/22 Sabrina Muñiz [address] [place] [address] Colon and Rectal Surgery 07/19/23 Wash Crew Person Relationship Specialty Start Date End Date Katy Faust MD [facility]0 [place], [place] 010571 PCP - General Internal Medicine 04/06/22 Caty Bowens MD [address] [place], [place] 4998095 Hematology/Oncology 05/29/21 Marisela [place] MD [address] [place], [place] 76245691 Physician Radiation Oncology 05/30/21 Amelia Souza, RN Specialty Deep Submergence Vehicle Operator Oncology 06/04/21 Helen Roa MD [address] [address] Cardiology 01/07/22 Ramiro Cheung MD [address] 5395295 Home Care Provider Colon and Rectal Surgery 02/13/22 Gurjit Delcid MD [address] [place] [phone] Referring Internal Medicine 03/10/22 Sabrina Muñiz [address] [place] [address] [phone] Colon and Rectal Surgery 07/19/23 Wash Crew Person Relationship Specialty Start Date End Date Katy Faust MD [address] [place], [place] [id number] PCP - General Internal Medicine 04/06/22 Caty Bowens MD [address] [place], [place] 7442895 Hematology/Oncology 05/29/21 Marisela [place] MD [address] [place], [place] 16216691 Physician Radiation Oncology 05/30/21 Amelia Souza, RN Specialty Deep Submergence Vehicle Operator Oncology 06/04/21 Helen Roa MD [address] [phone] Cardiology 01/07/22 Ramiro Cheung MD [address] 0 [place], [place] 9495195 Home Care Provider Colon and Rectal Surgery 02/13/22 Gurjit Delcid MD [address] [place], [place] 7610095 Referring Internal Medicine 03/10/22 Sabrina Muñiz [address] [place] [address] 115 [place], [place] [phone] Colon and Rectal Surgery 07/19/23 Wash Crew Person Relationship Specialty Start Date End Date Katy Faust MD [address] [place], [place] [id number] PCP - General Internal Medicine 04/06/22 Caty Bowens MD [address] [place], [place] 5336995 Hematology/Oncology 05/29/21 Marisela [place] MD [address] [place], [place] 46079691 Physician Radiation Oncology 05/30/21 Amelia Souza RN Specialty Deep Submergence Vehicle Operator Oncology 06/04/21 Helen Roa MD [address] [phone] Cardiology 01/07/22 Ramiro Cheung MD [address] 0 [place] [address] Home Care Provider Colon and Rectal Surgery 02/13/22 Gurjit Delcid MD [address] [place] [address] Referring Internal Medicine 03/10/22 Sabrina Muñiz [address] [place] [address] [address] [place], [place] [phone] Colon and Rectal Surgery 07/19/23 Wash Crew Person Relationship Specialty Start Date End Date Katy Faust MD [address] [place], [place] 072721 PCP - General Internal Medicine 04/06/22 Caty Bowens MD [address] [place], [place] 9016695 Hematology/Oncology 05/29/21 Marisela [place] MD [address] [place], [place] 974131 Physician Radiation Oncology 05/30/21 Amelia Souza, DERRICK Specialty Deep Submergence Vehicle Operator Oncology 06/04/21 Helen Roa MD [address] [address] Cardiology 01/07/22 Ramiro Cheung MD [address] [address] Home Care Provider Colon and Rectal Surgery 02/13/22 Gurjit Delcid MD [address] [place] [address] Referring Internal Medicine 03/10/22 Sabrina Muñiz [address] [place] [address] Street [address] [place], [place] [phone] Colon and Rectal Surgery 07/19/23 Wash Crew Person Relationship Specialty Start Date End Date Katy Faust MD [address] [place], [place] 920721 PCP - General Internal Medicine 04/06/22 Caty Bowens MD [address] [place] 0285195 Hematology/Oncology 05/29/21 Marisela [place] MD [address] [place], [place] [phone] Physician Radiation Oncology 05/30/21 Amelia Souza, DERRICK Specialty Deep Submergence Vehicle Operator Oncology 06/04/21 Helen Roa MD [address] [phone] Cardiology 01/07/22 Ramiro Cheung MD [address] [place] [address] Home Care Provider Colon and Rectal Surgery 02/13/22 Gurjit Delcid MD [address] [place] [phone] Referring Internal Medicine 03/10/22 Sabrina Muñiz [address] [place] [address] 115 [place] [address] Colon and Rectal Surgery 07/19/23 Wash Crew Person Relationship Specialty Start Date End Date Katy Faust MD [address] [place], [place] [id number] PCP - General Internal Medicine 04/06/22 Caty Bowens MD [address] [place] 0285195 Hematology/Oncology 05/29/21 Marisela [place] MD [address] [place], [place] 07486691 Physician Radiation Oncology 05/30/21 Amelia Souza RN Specialty Deep Submergence Vehicle Operator Oncology 06/04/21 Helen Roa MD [address] [phone] Cardiology 01/07/22 Ramiro Cheung MD [address] [address] Home Care Provider Colon and Rectal Surgery 02/13/22 Gurjit Delcid MD [address] [place] [address] Referring Internal Medicine 03/10/22 Sabrina Muñiz [address] [place] [address] [phone] Colon and Rectal Surgery 07/19/23 Wash Crew Person Relationship Specialty Start Date End Date Katy Faust MD [address] [place], [place] [phone] PCP - General Internal Medicine 04/06/22 Caty Bowens MD [address] [place] [address] Hematology/Oncology 05/29/21 Marisela [place] MD [address] [place] [address] Physician Radiation Oncology 05/30/21 Amelia Souza RN Specialty Deep Submergence Vehicle Operator Oncology 06/04/21 Helen Roa MD [address] [address] Cardiology 01/07/22 Ramiro Cheung MD [address]00 [facility] A30 [place] [address] Home Care Provider Colon and Rectal Surgery 02/13/22 Gurjit Delcid MD [address] [place] [address] Referring Internal Medicine 03/10/22 Sabrina Muñiz [address] [place] [address] Colon and Rectal Surgery 07/19/23 Wash Crew Person Relationship Specialty Start Date End Date Katy Faust MD [address] [place], [place] 457531 PCP - General Internal Medicine 04/06/22 Caty Bowens MD [address] [place] [address] Hematology/Oncology 05/29/21 Marisela [place] MD [address] [place] [address] Physician Radiation Oncology 05/30/21 Amelia Souza, DERRICK Specialty Deep Submergence Vehicle Operator Oncology 06/04/21 Helen Roa MD [address] [address] Cardiology 01/07/22 Ramiro Cheung MD [address] [facility] [place] [phone] Home Care Provider Colon and Rectal Surgery 02/13/22 Gurjit Delcid MD [address] [place] [phone] Referring Internal Medicine 03/10/22 Sabrina Muñiz [address] [place] [address] [id number] Colon and Rectal Surgery 07/19/23 Wash Crew Person Relationship Specialty Start Date End Date Katy Faust MD [facility] [place] [address] PCP - General Internal Medicine 04/06/22 [place] [address] [place] [address] Hematology/Oncology 05/29/21 Marisela [place] MD [address] [place] [address] Physician Radiation Oncology 05/30/21 Amelia Souza, DERRICK Specialty Deep Submergence Vehicle Operator Oncology 06/04/21 Helen Roa MD [address] 682891 Cardiology 01/07/22 Ramiro Cheung MD [address] [facility] [place] [phone] Home Care Provider Colon and Rectal Surgery 02/13/22 Gurjit Delcid MD [address] [place] [phone] Referring Internal Medicine 03/10/22 Sabrina Muñiz [address] [place] [address] [address] [place], [place] [phone] Colon and Rectal Surgery 07/19/23 Wash Crew Person Relationship Specialty Start Date End Date Katy Faust MD [address] [place], [place] [phone] PCP - General Internal Medicine 04/06/22 Caty Bowens MD [address] [place] [address] Hematology/Oncology 05/29/21 Marisela [place] MD [address] [place], [place] [phone] Physician Radiation Oncology 05/30/21 Amelia Souza, RN Specialty Deep Submergence Vehicle Operator Oncology 06/04/21 Helen Roa MD [address] [phone] Cardiology 01/07/22 Ramiro Cheung MD [address] [place] [phone] Home Care Provider Colon and Rectal Surgery 02/13/22 Gurjit Delcid MD [address] [place] [address] Referring Internal Medicine 03/10/22 Sabrina Muñiz [address] [place] [address] Colon and Rectal Surgery 07/19/23 Wash Crew Person Relationship Specialty Start Date End Date Katy Faust MD [address]40 [place] [address] PCP - General Internal Medicine 04/06/22 Caty Bowens MD [address] [place], [place] 4790395 Hematology/Oncology 05/29/21 Marisela [place] MD [address] [place] [address] Physician Radiation Oncology 05/30/21 Amelia Souza, DERRICK Specialty Deep Submergence Vehicle Operator Oncology 06/04/21 Helen Roa MD [address] [place], [place] 082251 Cardiology 01/07/22 Ramiro Cheung MD [address] [place], [place] 4982795 Home Care Provider Colon and Rectal Surgery 02/13/22 Gurjit Delcid MD [address] [place], [place] 5806995 Referring Internal Medicine 03/10/22 Sabrina Muñiz [address] [place] [address] Colon and Rectal Surgery 07/19/23 Wash Crew Person Relationship Specialty Start Date End Date Katy Faust MD [address]40 [place], [place] 641371 PCP - General Internal Medicine 04/06/22 [place] [address] [place] [address] Hematology/Oncology 05/29/21 Marisela [place] MD [address] [place], [place] [phone] Physician Radiation Oncology 05/30/21 Amelia Souza, DERRICK Specialty Deep Submergence Vehicle Operator Oncology 06/04/21 Helen Roa MD [address] [id number] Cardiology 01/07/22 Ramiro Cheung MD [address] [place] [address] Home Care Provider Colon and Rectal Surgery 02/13/22 Gurjit Delcid MD [address] [place] [address] Referring Internal Medicine 03/10/22 Sabrina Muñiz [address] [place] [address] [phone] Colon and Rectal Surgery 07/19/23 Wash Crew Person Relationship Specialty Start Date End Date Katy Faust MD [facility] [place], [place] [phone] PCP - General Internal Medicine 04/06/22 [place] [address] [place] [address] Hematology/Oncology 05/29/21 Marisela [place] MD [address] [place], [place] [phone] Physician Radiation Oncology 05/30/21 Amelia Souza, RN Specialty Deep Submergence Vehicle Operator Oncology 06/04/21 Helen Roa MD [address] [phone] Cardiology 01/07/22 [place] [address] [place] [address] Home Care Provider Colon and Rectal Surgery 02/13/22 Gurjit Delcid MD [address] [place], [place] [phone] Referring Internal Medicine 03/10/22 Sabrina Muñiz [address] [place] [address] 115 [place], [place] [phone] Colon and Rectal Surgery 07/19/23 Srinivasan Da Silva, ANALYTICS INTERN.ENGINEERING RESEARCH MANAGER [address]40 [place] [address] Aircraft Riveter Internal Medicine 02/07/24 Norm Parker, ANALYTICS INTERN.CUP MACHINE OPERATOR 1740 [place], [place] [phone] Aircraft Riveter Internal Medicine 02/07/24 Wash Crew Person Relationship Specialty Start Date End Date Katy Faust MD [address]40 [place] [address] PCP - General Internal Medicine 04/06/22 Caty Bowens MD [address] [place] [address] Hematology/Oncology 05/29/21 Marisela [place] MD [address] [place], [place] 774051 Physician Radiation Oncology 05/30/21 Amelia Souza, DERRICK Specialty Deep Submergence Vehicle Operator Oncology 06/04/21 Helen Roa MD [address] [phone] Cardiology 01/07/22 Ramiro Cheung MD [address] [phone] Home Care Provider Colon and Rectal Surgery 02/13/22 Gurjit Delcid MD [address] [place] [address] [phone] Referring Internal Medicine 03/10/22 Sabrina Muñiz [address] [place] [address] 13773 Colon and Rectal Surgery 07/19/23 Srinivasan Da Silva, ANALYTICS INTERN.ENGINEERING RESEARCH MANAGER [address] [place] [address] [id number] Aircraft Riveter Internal Medicine 02/07/24 Norm Parker, ANALYTICS INTERN.CUP MACHINE OPERATOR [address] [place] [address] [id number] Aircraft Riveter Internal Medicine 02/07/24 Wash Crew Person Relationship Specialty Start Date End Date Katy Faust MD [address] [place] [address] [id number] PCP - General Internal Medicine 04/06/22 Caty Bowens MD [address] [place], [place] [phone] Hematology/Oncology 05/29/21 Marisela Rome MD [address] [place], [place] [phone] Physician Radiation Oncology 05/30/21 Amelia Souza, DERRICK Specialty Deep Submergence Vehicle Operator Oncology 06/04/21 Helen Roa MD [address] [id number] Cardiology 01/07/22 Ramiro Cheung MD [address] [place] [address] Home Care Provider Colon and Rectal Surgery 02/13/22 Gurjit Delcid MD [address]00 [place] [address] Referring Internal Medicine 03/10/22 Sabrina Muñiz [address] [place] [address] [phone] Colon and Rectal Surgery 07/19/23 Srinivasan Da Silva, NAVNEET.ENGINEERING RESEARCH MANAGER [address] [place], [place] [id number] Aircraft Riveter Internal Medicine 02/07/24 Norm Parker ANALYTICS INTERN.CUP MACHINE OPERATOR [address] [place], [place] [phone] Aircraft Riveter Internal Medicine 02/07/24 Wash Crew Person Relationship Specialty Start Date End Date Katy Faust MD [address] [place], [place] 895871 PCP - General Internal Medicine 04/06/22 Caty Bowens MD [address] [place] [id number] Hematology/Oncology 05/29/21 Marisela Rome MD [address] [place], [place] [phone] Physician Radiation Oncology 05/30/21 Amelia Souza RN Specialty Deep Submergence Vehicle Operator Oncology 06/04/21 Helen Roa MD [address] [phone] Cardiology 01/07/22 Ramiro Cheung MD [address] [place] [phone] Home Care Provider Colon and Rectal Surgery 02/13/22 Gurjit Delcid MD [address]00 [place] [address] Referring Internal Medicine 03/10/22 Sabrina Muñiz [address] [place] [address] 91653 Colon and Rectal Surgery 07/19/23 Srinivasan Da Silva APRN.ENGINEERING RESEARCH MANAGER [address] [place] [address] Aircraft Riveter Internal Medicine 02/07/24 Norm Parker APRN.CUP MACHINE OPERATOR [address] [place] [address] Aircraft Riveter Internal Medicine 05/23/24 Wash Crew Person Relationship Specialty Start Date End Date Katy Faust MD [address] [place] [address] PCP - General Internal Medicine 04/06/22 Caty Bowens MD [address] [place] [phone] Hematology/Oncology 05/29/21 Marisela Rome MD [address] [place], [place] 802741 Physician Radiation Oncology 05/30/21 Amelia Souza RN Specialty Deep Submergence Vehicle Operator Oncology 06/04/21 Helen Roa MD [address] [address] Cardiology 01/07/22 Ramiro Cheung MD [address] [place] [address] Home Care Provider Colon and Rectal Surgery 02/13/22 Gurjit Delcid MD [address] [place] [address]195 Referring Internal Medicine 03/10/22 Sabrina Muñiz [address] [place] [address] [address] [place] [address] Colon and Rectal Surgery 07/19/23 Srinivasan Da Silva APRN.ENGINEERING RESEARCH MANAGER [address] [place], [place] [id number] Aircraft Riveter Internal Medicine 02/07/24 Norm Parker APRN.CUP MACHINE OPERATOR [address] [place] [address] Aircraft Riveter Internal Medicine 05/23/24 Wash Crew Person Relationship Specialty Start Date End Date Katy Faust MD [address] [place] [address] PCP - General Internal Medicine 04/06/22 Caty Bowens MD [address] [place] [phone] Hematology/Oncology 05/29/21 Marisela Rome MD [address] [place] [address] Physician Radiation Oncology 05/30/21 Amelia Souza, RN Specialty Deep Submergence Vehicle Operator Oncology 06/04/21 Helen Roa MD [address] [phone] Cardiology 01/07/22 Ramiro Cheung MD [address] [address] Home Care Provider Colon and Rectal Surgery 02/13/22 Gurjit Delcid MD [address]00 [place] [address] Referring Internal Medicine 03/10/22 Sabrina Muñiz [address] [place] [address] 115 [place] [address] Colon and Rectal Surgery 07/19/23 Srinivasan Da Silva APRN.ENGINEERING RESEARCH MANAGER [address] [place] [address] Aircraft Riveter Internal Medicine 02/07/24 Norm Parker APRN.CUP MACHINE OPERATOR [address] [place] [address] Aircraft Riveter Internal Medicine 05/23/24 Wash Crew Person Relationship Specialty Start Date End Date Katy Faust MD [address] [place], [place] 217061 PCP - General Internal Medicine 04/06/22 Caty Bowens MD [address] [place] [address] Hematology/Oncology 05/29/21 Marisela Rome MD [address] [place], [place] 169001 Physician Radiation Oncology 05/30/21 Amelia Souza, DERRICK Specialty Deep Submergence Vehicle Operator Oncology 06/04/21 Helen Roa MD [address] [phone] Cardiology 01/07/22 Ramiro Cheung MD 9500 [facility] [address] [place] [address] Home Care Provider Colon and Rectal Surgery 02/13/22 Gurjit Delcid MD [address] [place] [address] Referring Internal Medicine 03/10/22 Sabrina Muñiz [address] [place] [address] 36291 Colon and Rectal Surgery 07/19/23 Srinivasan Da Silva, ANALYTICS INTERN.ENGINEERING RESEARCH MANAGER [address] [place] [address] Aircraft Riveter Internal Medicine 02/07/24 Norm Parker ANALYTICS INTERN.CUP MACHINE OPERATOR [address] [place], [place] [phone] Aircraft Riveter Internal Medicine 05/23/24 Wash Crew Person Relationship Specialty Start Date End Date Katy Faust MD [address] [place], [place] 375951 PCP - General Internal Medicine 04/06/22 Caty Bowens MD [address] [place] [id number] Hematology/Oncology 05/29/21 Marisela Rome MD [address] [place], [place] [phone] Physician Radiation Oncology 05/30/21 Amelia Souza, RN Specialty Deep Submergence Vehicle Operator Oncology 06/04/21 Helen Roa MD [address] 015001 Cardiology 01/07/22 Ramiro Cheung MD [address] [address] Home Care Provider Colon and Rectal Surgery 02/13/22 Gurjit Delcid MD [address] [place] [address] Referring Internal Medicine 03/10/22 Sabrina Muñiz [address] [facility] [address] [place] [address] Colon and Rectal Surgery 07/19/23 Srinivasan Da Silva APRN.ENGINEERING RESEARCH MANAGER [address] [place], [place] 655391 Aircraft Riveter Internal Medicine 02/07/24 Norm Parker ANALYTICS INTERN.CUP MACHINE OPERATOR [address] [place], [place] [id number] Aircraft Riveter Internal Medicine 05/23/24 Wash Crew Person Relationship Specialty Start Date End Date Katy Faust MD [address] [place], [place] [phone] PCP - General Internal Medicine 04/06/22 Caty Bowens MD [address] [place], [place] [phone] Hematology/Oncology 05/29/21 Marisela Rome MD [address] [place], [place] [phone] Physician Radiation Oncology 05/30/21 Amelia Souza, DERRICK Specialty Deep Submergence Vehicle Operator Oncology 06/04/21 Helen Roa MD [address] [place] [address] [phone] Cardiology 01/07/22 Ramiro Cheung MD [address] [place] [address] Home Care Provider Colon and Rectal Surgery 02/13/22 [place] [address] [place] [address] [phone] Referring Internal Medicine 03/10/22 Sabrina Muñiz [address] [place] [address] [address] [place] [address] Colon and Rectal Surgery 07/19/23 Norm Parker, ANALYTICS INTERN.CUP MACHINE OPERATOR [address] [place] [address] Aircraft Riveter Internal Medicine 05/23/24 Srinivasan Da Silva, ANALYTICS INTERN.ENGINEERING RESEARCH MANAGER [address] [place] [address] Aircraft Riveter Internal Medicine 07/19/24 Team Status: Active Member [...] Provider Active S tart: August 01, 2024 Wash Crew Person Relationship Specialty Start Date End Date Katy Faust MD [address] [place], [place] [phone] PCP - General Internal Medicine 04/06/22 Caty Bowens MD [address] [place] [address] Hematology/Oncology 05/29/21 Marisela Rome MD [address] [place], [place] [phone] Physician Radiation Oncology 05/30/21 Amelia Souza RN Specialty Deep Submergence Vehicle Operator Oncology 06/04/21 Helen Roa MD [address] [phone] Cardiology 01/07/22 Ramiro Cheung MD [address] [place] [address] Home Care Provider Colon and Rectal Surgery 02/13/22 Gurjit Delcid MD [address] [place] [address] Referring Internal Medicine 03/10/22 Sabrina Muñiz [address] [place] [address] [address] [place], [place] [phone] Colon and Rectal Surgery 07/19/23 Norm Parker, ANALYTICS INTERN.CUP MACHINE OPERATOR [address] [place], [place] [id number] Aircraft Riveter Internal Medicine 05/23/24 Srinivasan Da Silva APRN.ENGINEERING RESEARCH MANAGER [address] [place], [place] [phone] Aircraft Riveter Internal Medicine 07/19/24 Wash Crew Person Relationship Specialty Start Date End Date Katy Faust MD [address] [place], [place] [phone] PCP - General Internal Medicine 04/06/22 Caty Bowens MD [address] [place] [address] Hematology/Oncology 05/29/21 Marisela Rome MD [address] [place], [place] 645641 Physician Radiation Oncology 05/30/21 Amelia Souza, DERRICK Specialty Deep Submergence Vehicle Operator Oncology 06/04/21 Helen Roa MD [address] [phone] Cardiology 01/07/22 Ramiro Cheung MD [address] [facility] [address] [place] [address] Home Care Provider Colon and Rectal Surgery 02/13/22 Gurjit Delcid MD [address] [place] [address] Referring Internal Medicine 03/10/22 Sabrina Muñiz [address] [place] [address] 115 [place] [address] Colon and Rectal Surgery 07/19/23 Norm Parker, ANALYTICS INTERN.CUP MACHINE OPERATOR [address] [place] [address] Aircraft Riveter Internal Medicine 05/23/24 Srinivasan Da Silva, ANALYTICS INTERN.ENGINEERING RESEARCH MANAGER [address] [place] [address] Aircraft Riveter Internal Medicine 07/19/24 Team Status: Active Member [...] October 10, 2024 End: October 10, 2024 Wash Crew Person Relationship Specialty Start Date End Date Katy Faust MD [address] [place] [address] PCP - General Internal Medicine 04/06/22 Caty Bowens MD [address] [place], [place] [phone] Hematology/Oncology 05/29/21 Marisela Rome MD [address] [place], [place] 057791 Physician Radiation Oncology 05/30/21 Amelia Souza RN Specialty Deep Submergence Vehicle Operator Oncology 06/04/21 Helen Roa MD [address] [phone] Cardiology 01/07/22 Ramiro Cheung MD [address] [address] Home Care Provider Colon and Rectal Surgery 02/13/22 Sabrina Muñiz [address] [place] [address] 34451 Colon and Rectal Surgery 07/19/23 Norm Parker, NAVNEET.CUP MACHINE OPERATOR [address] [place] [address] Aircraft Riveter Internal Medicine 05/23/24 Srinivasan Da Silva, NAVNEET.ENGINEERING RESEARCH MANAGER [address] [place] [address] Aircraft Riveter Internal Medicine 07/19/24 Wash Crew Person Relationship Specialty Start Date End Date Katy Faust MD [address] [place], [place] [id number] PCP - General Internal Medicine 04/06/22 Caty Bowens MD [address] [place] [address] Hematology/Oncology 05/29/21 Marisela Rome MD [address] [place], [place] 277941 Physician Radiation Oncology 05/30/21 Amelia Souza, RN Specialty Deep Submergence Vehicle Operator Oncology 06/04/21 Helen Roa MD [address] [address] Cardiology 01/07/22 Ramiro Cheung MD [address] [place] [phone] Home Care Provider Colon and Rectal Surgery 02/13/22 Gurjit Delcid MD [address] [place] [phone] Referring Internal Medicine 03/10/22 08/23/24 Sabrina Muñiz [address] [place] [address] [address] [place] [address] Colon and Rectal Surgery 07/19/23 Norm Parker, ANALYTICS INTERN.CUP MACHINE OPERATOR [address] [place], [place] [id number] Aircraft Riveter Internal Medicine 05/23/24 Srinivasan Da Silva, ANALYTICS INTERN.ENGINEERING RESEARCH MANAGER [address] [place], [place] [id number] Aircraft Riveter Internal Medicine 07/19/24 Team Status: Active Member [...] 2024 End: November 29, 2024 Carlos Trujillo BOX COVERER HAND, BOX COVERER HAND-C Attending physician Active Start: November 29, 2024 [...] BE BASED ON THE PRIMARY CLINICAL RECORDS. [facility]. provides no warranty or guarantee of the accuracy or completeness of information in this document.
[2025-01-07] MEDS: Ensure Surgery 237 ML LIQUID PO (19:51)
[2025-01-07] MEDS: Senna/Docusate Sodium 1 Tablet 2 TABLET PO (23:32)
[2025-01-07] MEDS: 0.9% Saline Lock 10 ML Syringe IV (23:41)
[2025-01-07] MEDS: Cefazolin 2 GM in 0.9% Normal Saline (100mL Bag) 100 ML IV (23:42)
[2025-01-08] VITALS (8 sets, daily range): BP systolic 144–177; BP diastolic 71–97; PULSE 64–83; RESP 16–18; TEMP 36.2–36.9; O2SAT 95–99
[2025-01-08] MEDS: HYDROcodone Bitartrate/Apap 5/325 Tablet PO ×2 (00:59→06:31)
[2025-01-08] MEDS: 0.9% Normal Saline (1000mL) 1,000 ML 150 ML IV ×2 (01:07→08:07)
[2025-01-08 07:28] LABS: Hematocrit 36.5 % (40-54); Hemoglobin 12.3 g/dL (13.0-16.5); Immature Granulocytes Count 0.020 X10^3/uL (0.0-0.0); Mean Corp Hgb Conc 33.7 g/dL (32-36); Mean Corpuscular Volume 92.6 fL (80-94); Mean Platelet Vol. 10.4 fl (6.2-12.0); NRBC Flagged by Analyzer 0 % (0-5); Platelet Count 218 K/mm3 (150-450); RBC Distribution Width CV 14.4 % (11.6-14.6); RBC Distribution Width SD 49.0 fl (35.1-43.9); Red Blood Count 3.94 M/mm3 (4.6-6.2); White Blood Count 8.6 K/mm3 (4.4-11.0)
[2025-01-08 07:41] LABS: Anion Gap 9 (5-15); BUN 14 mg/dL (4-19); BUN/Creat Ratio 12.7 RATIO (10-20); Calcium,Total 8.5 mg/dL (7.6-11.0); Carbon Dioxide 23.9 mmol/L (21.0-32.0); Chloride 104 mmol/L (98-108); Estimated Creatinine Clearance 61.94 ml/min (50-250); Glucose 100 mg/dL (70-99); Potassium 3.9 mmol/L (3.3-5.1)
[2025-01-08] MEDS: Senna/Docusate Sodium 1 Tablet 2 TABLET PO (08:01)
[2025-01-08] MEDS: Ensure Surgery 237 ML LIQUID PO (08:07)
[2025-01-08] MEDS: Cefazolin 2 GM in 0.9% Normal Saline (100mL Bag) 100 ML IV (08:07)
--- NOTE | 2025-01-08 11:49 | PN.ORTHO_ITS ---
Subjective Subjective Postop day 1 status post lumbar I&D, seroma evacuation following L3-5 laminectomy done last Wednesday. Patient reports the pain is much better. Denies any radicular pain today. He was able to walk the hallway with PT. Draining sanguinous fluid into the Hemovac. Continues to be on Henriquez. Sitting on recliner when I saw him today. Mention of headaches, but says that this improved with upright positioning and walking. He does not think that this is positional. No IntraOp CSF leak was noticed even with Valsalva yesterday. Objective Data Objective Data Vital Signs: Vital Signs Temp Pulse Resp BP Pulse Ox O2 Del Method O2 Flow Rate 97.6 F L 64 18 144/93 H 97 Room Air 2 01/08/25 07:53 01/08/25 07:53 01/08/25 07:53 01/08/25 07:53 01/08/25 07:53 01/08/25 08:00 01/07/25 18:27 Oxygen Flow Rate (L/min) 2 Oxygen Delivery Method Room Air Weight: 198 lb 11.2 oz Body Mass Index (BMI) 32.1 Intake & Output: Intake and Output for Last 24 Hours 01/06/25 01/07/25 01/08/25 23:59 23:59 23:59 Intake Total 1000 / 1200 1720 / 1720 Output Total 1105 / 1755 650 / 650 Balance -105 / -555 1070 / 1070 Lab / Micro Data 01/08/25 06:56 01/08/25 06:56 Labs: Laboratory Results - last 24 hr 01/08/25 06:56: WBC 8.6, RBC 3.94 L, Hgb 12.3 L, Hct 36.5 L, MCV 92.6, MCH 31.2, MCHC 33.7, RDW Std Deviation 49.0 H, RDW Coeff of Siena 14.4, Plt Count 218, MPV 10.4, Immature Gran % (Auto) 0.200, Neut % (Auto) 62.6, Lymph % (Auto) 18.1 L, M kevin % (Auto) 12.2 H, Eos % (Auto) 6.3 H, Baso % (Auto) 0.6, Absolute Neuts (auto) 5.4, Absolute Lymphs (auto) 1.55, Nucleated RBC % 0, Sodium 137, Potassium 3.9, Chloride 104, Carbon Dioxide 23.9, Anion Gap 9, BUN 14, Creatinine 1.10, Estim Creat Clear Calc 61.94, Est GFR (MDRD) Non-Af 70, BUN/Creatinine Ratio 12.7, Glucose 100 H, Calcium 8.5 Radiography Diagnostic Testing: Radiology Impression Lumbar Spine MRI 01/07/25 08:09 IMPRESSION: Nonenhancing multi accumulated collection at the surgical bed extends to the skin and measures 6.2 cm in anteroposterior dimension 4.1 cm in craniocaudal dimension and 2.6 cm in transverse dimension in the surgical bed at L3-L4. The collection causes mass-effect upon with resultant severe narrowing of the thecal sac and crowding of the cauda equina nerves. The collection is consistent with postsurgical seroma. Early abscess can not be excluded. Note that there is 3 cm pocket extending from the upper aspect of the collection and along the posterior dura at L2 level measures 3 mm in anteroposterior dimension. Reading Location: [facility] Physical Exam Narrative Dressing with mild sanguinous staining. Hemovac present. Neurologic evaluation of lower extremity shows 5 of 5 strength. Assessment & Plan Assessment/Plan (1) Status post laminectomy: (2) Status post incision and drainage: PLAN: Plan Postop day 1 status post I&D and seroma evacuation, L3-5 laminectomy from last Wednesday. Please empty Hemovac canister and charge. Hemovac will be removed once drainage is less than 30 cc per shift. Continue Ancef for now. Remove Henriquez and allow void trial. Continue PT OT. Discharge pending drain removal and void trial. Answered all questions.
--- NOTE | 2025-01-08 13:33 | PN_ITS ---
Subjective Subjective Patient is a 74-year-old male with past medical history as outlined. He was admitted to the service of orthospine surgery after he presented by the ED on 01/07/2025 with a complaint of difficulty ambulation and urination following spinal surgery about 6 days prior to admission. He had a spinal surgery for chronic back pain and left lower extremity weakness. He was discharged home the day after. However he reported recurrence of the severe back pain and bilateral lower extremity pain which was worse in the left leg and said it was not similar to his sciatic pain previously. He had an emergency MRI done in the ED which showed nonenhancing multiloculated collection at the surgical bed extending to the skin and measuring 6.2 cm in the AP diameter, 4.1 cm in the craniocaudal dimension and 2.6 cm in transverse dimension in the surgical bed at L3-4 and causing mass effect with resultant severe narrowing of the thecal sac and crowding of the cauda equina nerves. He was taken emergently to surgery and had posterior lumbar wound hematoma I&D and evacuation. Hospitalist service was consulted for medical management. Patient seen and examined today with his nurse by his bedside. He had no complaints and felt well. He had been ambulating around with physical therapy. He denied any pain, fever, chills, shortness of breath, nausea or vomiting or palpitations. Review of systems otherwise negative. Objective Data Objective Data Vital Signs: Vital Signs Temp Pulse Resp BP Pulse Ox O2 Del Method O2 Flow Rate 97.6 F L 64 18 144/93 H 97 Room Air 2 01/08/25 07:53 01/08/25 07:53 01/08/25 07:53 01/08/25 07:53 01/08/25 07:53 01/08/25 08:00 01/07/25 18:27 Oxygen Flow Rate (L/min) 2 Oxygen Delivery Method Room Air Weight: 198 lb 11.2 oz Body Mass Index (BMI) 32.1 Intake & Output: Intake and Output for Last 24 Hours 01/06/25 01/07/25 01/08/25 23:59 23:59 23:59 Intake Total 1000 / 1200 2140 / 2140 Output Total 1105 / 1755 1490 / 1490 Balance -105 / -555 650 / 650 Lab / Micro Data 01/08/25 06:56 01/08/25 06:56 Labs: Laboratory Results - last 24 hr 01/08/25 06:56: WBC 8.6, RBC 3.94 L, Hgb 12.3 L, Hct 36.5 L, MCV 92.6, MCH 31.2, MCHC 33.7, RDW Std Deviation 49.0 H, RDW Coeff of Siena 14.4, Plt Count 218, MPV 10.4, Immature Gran % (Auto) 0.200, Neut % (Auto) 62.6, Lymph % (Auto) 18.1 L, M kevin % (Auto) 12.2 H, Eos % (Auto) 6.3 H, Baso % (Auto) 0.6, Absolute Neuts (auto) 5.4, Absolute Lymphs (auto) 1.55, Nucleated RBC % 0, Sodium 137, Potassium 3.9, Chloride 104, Carbon Dioxide 23.9, Anion Gap 9, BUN 14, Creatinine 1.10, Estim Creat Clear Calc 61.94, Est GFR (MDRD) Non-Af 70, BUN/Creatinine Ratio 12.7, Glucose 100 H, Calcium 8.5 Radiography Diagnostic Testing: Radiology Impression Lumbar Spine MRI 01/07/25 08:09 IMPRESSION: Nonenhancing multi accumulated collection at the surgical bed extends to the skin and measures 6.2 cm in anteroposterior dimension 4.1 cm in craniocaudal dimension and 2.6 cm in transverse dimension in the surgical bed at L3-L4. The collection causes mass-effect upon with resultant severe narrowing of the thecal sac and crowding of the cauda equina nerves. The collection is consistent with postsurgical seroma. Early abscess can not be excluded. Note that there is 3 cm pocket extending from the upper aspect of the collection and along the posterior dura at L2 level measures 3 mm in anteroposterior dimension. Reading Location: [facility] Physical Exam Const alert, oriented x3 and no apparent distress General Appearance: cooperative and well developed HEENT normocephalic, head/scalp atraumatic, moist oral mucous membranes and oropharynx normal Eyes EOMs intact bilaterally Neck supple and no JVD Lymph Lymphatic: no lymphedema noted Resp normal respiratory effort, normal air movement and clear to auscultation bilaterally Cardio regular rate, regular rhythm, S1 normal heart sound, S2 normal heart sound and no murmurs GI normal to inspection, nondistended, normoactive bowel sounds, soft to palpation, non-tender and non-distended Extremity normal capillary refill and no clubbing, cyanosis or edema General Extremity: no tenderness to palpation of joints or extremities Skin Skin Narrative: intact dressing over surgical site on lower back. Drain in situ Neuro CN's II-XII intact bilaterally and no focal motor deficits Motor Exam: strength 5/5 throughout Psych thought process normal, cooperative and affect normal Appearance: appropriate Assessment & Plan Assessment/Plan (1) Status post incision and drainage: (2) Postoperative hematoma: PLAN: Plan #Postoperative lumbar wound hematoma s/p laminectomy with resultant cauda equina compression * S/p I&D with hematoma evacuation * pain well-controlled and patient has been working with physical therapy. * PT OT on board. Fall precautions. * Encourage incentive spirometry. Management as per orthopedics primary service * #History of CAD s/p CABG: On statins. Aspirin currently on hold. Will defer to primary service about when to resume this. #History of peripheral vascular disease: On statin as above. Aspirin held as above. #Hyperlipidemia: Statin #DVT prophylaxis: As per primary service orthospine Thank you for the courtesy of the consult. Hospitalist service continue to follow with you. Charges/Coding Visit Charges Inpatient E&M: 93229 Subs Hosp L2
--- NOTE | 2025-01-08 15:46 | CHAPLAIN ---
Type of Pastoral Visit _x__ Initial Visit ___ Follow-up Visit ___ On-call Visit ___ General Patient Visit ___ Spiritual Assessment ___ Family Conference ___ Bereavement ___ Rapid Response ___ Code Blue ___ Other (describe below) Pastoral Care Referral From _x__ Patient ___ Family ___ Nurse ___ Physician ___ Sign Painter ___ Retail Field Supervisor ___ Other (describe below) Sacrament/Intervention _x__ Active listening ___ Anointing ___ Caodaism ___ Bereavement ___ Communion _x__ Gemini exploration ___ _x__ Life review _x__ Prayer ___ Reconciliation ___ Sacrament of Sick _x__ Supportive presence ___ Wedding ___ Other (describe below) Pastoral Comments 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
[2025-01-08] MEDS: 0.9% Saline Lock 10 ML Syringe IV ×2 (21:43→22:32)
--- NOTE | 2025-01-08 22:13 | PCM.HOSP.N ---
Hospitalist Note Pt not currently on any anti-hypertensive medications; denies having pain complaints, just received acetaminophen. SBP trending high 150s to 170, both upper extremity pressures similar. I ordered hydralazine 5mg IV q6h PRN SBP greater than 170mmHg for acute treatment.
[2025-01-09 02:56] VITALS: BP 166/90; PULSE 71; RESP 18; TEMP 36.6; O2SAT 96
[2025-01-09 07:44] VITALS: O2SAT 95
--- NOTE | 2025-01-09 08:33 | PCM.PN.ORT ---
Subjective Subjective Chaka is a pleasant 74 yo Postop day 2 status post lumbar I&D, seroma evacuation following L3-5 laminectomy performed 01/02/[address] Siddiqui. Patient states good pain control with OTC tramadol on as needed basis. Ambulatory in room with steady gait. States Henriquez has been removed and he is urinating near baseline. He does have some ongoing hesitancy and incomplete emptying which has been present for some time. History of prostate CA with surgery, has not followed with urology for some time. Inquiring when he can be DC'd home. Objective Data Objective Data Hemovac output 10mL overnight, 15 mL last evening (1999). Vital Signs: Vital Signs Temp Pulse Resp BP Pulse Ox O2 Del Method O2 Flow Rate 98 F 71 18 166/90 H 95 Room Air 2 01/09/25 02:56 01/09/25 02:56 01/09/25 02:56 01/09/25 02:56 01/09/25 07:44 01/09/25 07:44 01/07/25 18:27 Oxygen Flow Rate (L/min) 2 Oxygen Delivery Method Room Air Weight: 198 lb 11.2 oz Body Mass Index (BMI) 32.1 Intake & Output: Intake and Output for Last 24 Hours 01/07/25 01/08/25 01/09/25 23:59 23:59 23:59 Intake Total 1000 / 1200 3740 / 3740 750 / 750 Output Total 1105 / 1755 1725 / 1725 Balance -105 / -555 2014 725 / 725 Lab / Micro Data Attestation: I reviewed the patient's lab results. 01/08/25 06:56 01/08/25 06:56 Micro: Microbiology 01/07/25 16:17 Wound - Back Gram Stain - Final 01/07/25 16:17 Wound - Back Wound Culture - Preliminary No growth-Final to follow Physical Exam Narrative Lumbar dressing is dry and intact with no drainage present. Hemovac present with scant amount of sanguinous drainage. Dressings were removed. 7 sutures are present and intact with well-approximated incision at the lumbar incision sites with no swelling, erythema, drainage or pain to site. Hemovac is secured with one suture. Site to Hemovac drain was cleansed with Betadine, suture removed and drain easily removed, patient tolerated well. There was no drainage post removal. Surgical sites cleansed with Betadine, dry sterile gauze dressings applied and secured with Tegaderm dressings. Const alert, oriented x3 and no apparent distress Constitutional Narrative: Ambulatory in the room with steady gait. Transfers positions easily. General Appearance: cooperative and well developed HEENT normocephalic Neck supple Resp normal respiratory effort GI GI Narrative: Patient self manages colostomy bag secondary to rectal CA, no concerns Extremity normal capillary refill General Extremity: Negative for calf tenderness Neuro Gait (Neuro): normal gait Motor Exam: strength 5/5 throughout and muscle tone normal throughout Assessment & Plan Assessment/Plan (1) Postoperative hematoma: QUALIFIERS: Surgical complication system/body Area: skin Procedure type: non-dermatologic Qualified Code(s): L76.32 - Postprocedural hematoma of skin and subcutaneous tissue following other procedure PLAN: Keep Tegaderm and gauze clean and dry. If Tegaderm is intact, okay to shower. Instructed on antibacterial soap and water to incision site. After 5 days remove Tegaderm and gauze and cover with a Band-Aid. Replace Band-Aid daily thereafter Reviewed signs and symptoms of infection and to seek evaluation for any pain to the incision site, redness, streaking, drainage, fever, chills or other concerns. (2) Status post incision and drainage: PLAN: Same as above (3) Cauda equina syndrome: PLAN: Resolved (4) Acute urinary retention: PLAN: Resolved Recommend routine follow-up with urology on an outpatient basis regarding urinary hesitancy, decreased stream flow and history of prostate CA (5) Status post laminectomy: PLAN: Follow-up in clinic in 1 week as scheduled, sooner for changes or concerns Reviewed pain control with as needed tramadol. Patient states he has tramadol remaining at home and feels he has enough to carry him through to until next week's follow-up appointment in the office. Reviewed wound care Reviewed red flag symptoms for urgent ED evaluation including loss of bowel or bladder control, saddle anesthesia, progressive and sudden paresthesias, weakness or other concerns. (6) Headache: QUALIFIERS: Headache type: tension-type Headache chronicity pattern: episodic headache Intractability: not intractable Qualified Code(s): G44.219 - Episodic tension-type headache, not intractable PLAN: We discussed headache but has slightly worsened since getting up and moving around today. Patient has been advised to have his morning meal and daily cup of tea as well as an as needed dose of Tylenol. Staff to monitor for effect of headache If headache resolves by or just after lunchtime, will DC home today This document has been transcribed using [employer] dictation software. There may be incorrect words, spelling, and punctuation. PLAN: Plan Plan collaborated with Dr. Siddiqui
[2025-01-09 09:11] VITALS: BP 157/77; PULSE 64; RESP 17; TEMP 36.9; O2SAT 96
--- NOTE | 2025-01-09 11:41 | PN_ITS ---
Subjective Subjective Patient seen and examined. He is still complaining of headache. Review of systems is otherwise negative. He has remained hemodynamically stable. Objective Data Objective Data Vital Signs: Vital Signs Temp Pulse Resp BP Pulse Ox O2 Del Method O2 Flow Rate 98.4 F 64 17 157/77 H 96 Room Air 2 01/09/25 09:11 01/09/25 09:11 01/09/25 09:11 01/09/25 09:11 01/09/25 09:11 01/09/25 09:11 01/07/25 18:27 Oxygen Flow Rate (L/min) 2 Oxygen Delivery Method Room Air Weight: 198 lb 11.2 oz Body Mass Index (BMI) 32.1 Intake & Output: Intake and Output for Last 24 Hours 01/07/25 01/08/25 01/09/25 23:59 23:59 23:59 Intake Total 1000 / 1200 3740 / 3740 750 / 750 Output Total 1105 / 1755 1725 / 1725 Balance -105 / -555 2014 725 / 725 Lab / Micro Data 01/08/25 06:56 01/08/25 06:56 Micro: Microbiology 01/07/25 16:17 Wound - Back Gram Stain - Final 01/07/25 16:17 Wound - Back Wound Culture - Preliminary No growth-Final to follow Physical Exam Const alert, oriented x3 and no apparent distress General Appearance: cooperative and well developed HEENT normocephalic, head/scalp atraumatic, moist oral mucous membranes and oropharynx normal Eyes EOMs intact bilaterally Neck supple and no JVD Lymph Lymphatic: no lymphedema noted Resp normal respiratory effort, normal air movement and clear to auscultation bilaterally Cardio regular rate, regular rhythm, S1 normal heart sound, S2 normal heart sound and no murmurs GI normal to inspection, nondistended, normoactive bowel sounds, soft to palpation, non-tender and non-distended Extremity normal capillary refill and no clubbing, cyanosis or edema General Extremity: no tenderness to palpation of joints or extremities Skin Skin Narrative: intact dressing over surgical site on lower back. Drain removed. Neuro CN's II-XII intact bilaterally and no focal motor deficits Motor Exam: strength 5/5 throughout Psych thought process normal, cooperative and affect normal Appearance: appropriate Assessment & Plan Assessment/Plan (1) Status post incision and drainage: (2) Postoperative hematoma: QUALIFIERS: Surgical complication system/body Area: skin P rocedure type: non-dermatologic Qualified Code(s): L76.32 - Postprocedural hematoma of skin and subcutaneous tissue following other procedure PLAN: Plan #Postoperative lumbar wound hematoma s/p laminectomy with resultant cauda equina compression * S/p I&D with hematoma evacuation. Today is POD 2. * pain well-controlled and patient has been working with physical therapy. * PT OT on board. Fall precautions. * Encourage incentive spirometry. Management as per orthopedics primary service * #Headache * patient complaining of headache. Has been complaining of headache since admission. * to discuss with orthospine surgery to see if blood patch may be a consideration to help with the headache. * #History of CAD s/p CABG: On statins. Aspirin currently on hold. Will defer to primary service about when to resume this. #History of peripheral vascular disease: On statin as above. Aspirin held as above. #Hyperlipidemia: Statin #DVT prophylaxis: As per primary service orthospine Thank you for the courtesy of the consult. Hospitalist service continue to follow with you. Patient stable for dc from hospitalist standpoint Charges/Coding Visit Charges Inpatient E&M: 70898 Subs Hosp L2
--- NOTE | 2025-01-09 12:43 | PCM.DC.BLA ---
Discharge Summary Date of Admission: 01/07/25 Date of Discharge: 01/09/25 Summary: Chaka is a pleasant 74 yo Postop day 2 status post lumbar I&D, seroma evacuation following L3-5 laminectomy performed 01/02/[address] Siddiqui. Patient states good pain control with OTC tramadol on as needed basis. Ambulatory in room with steady gait. States Henriquez has been removed and he is urinating near baseline. Pain is well-controlled with p.o. tramadol. D/C plan: Keep Tegaderm and gauze clean and dry. If Tegaderm is intact, okay to shower. Instructed on antibacterial soap and water to incision site. After 5 days remove Tegaderm and gauze and cover with a Band-Aid. Replace Band-Aid daily thereafter Reviewed signs and symptoms of infection and to seek evaluation for any pain to the incision site, redness, streaking, drainage, fever, chills or other concerns. Recommend routine follow-up with urology on an outpatient basis regarding urinary hesitancy, decreased stream flow and history of prostate CA Follow-up in Ortho clinic in 1 week as scheduled, sooner for changes or concerns Reviewed pain control with as needed tramadol. Patient states he has tramadol remaining at home and feels he has enough to carry him through to until next week's follow-up appointment in the office. Reviewed wound care Reviewed red flag symptoms for urgent ED evaluation including loss of bowel or bladder control, saddle anesthesia, progressive and sudden paresthesias, weakness or other concerns. Anticipate DC home today. Physical Exam Narrative Lumbar dressing is dry and intact with no drainage present. Hemovac present with scant amount of sanguinous drainage. Dressings were removed. 7 sutures are present and intact with well-approximated incision at the lumbar incision sites with no swelling, erythema, drainage or pain to site. Hemovac is secured with one suture. Site to Hemovac drain was cleansed with Betadine, suture removed and drain easily removed, patient tolerated well. There was no drainage post removal. Surgical sites cleansed with Betadine, dry sterile gauze dressings applied and secured with Tegaderm dressings. Const alert, oriented x3 and no apparent distress Constitutional Narrative: Ambulatory in the room with steady gait. Transfers positions easily. General Appearance: cooperative and well developed HEENT normocephalic Neck supple Resp normal respiratory effort GI GI Narrative: Patient self manages colostomy bag secondary to rectal CA, no concerns Extremity normal capillary refill General Extremity: Negative for calf tenderness Neuro Gait (Neuro): normal gait Motor Exam: strength 5/5 throughout and muscle tone normal throughout Meaningful Use Info Meaningful Use Meaningful Use Diagnoses (Choose all that apply): None applicable Ischemic Stroke Statin Dosing Therapy Reference: STATIN DOSE THERAPY REFERENCE: * Patients > 75 years receive moderate or high dose statin therapy. * Patients 75 years or YOUNGER should receive HIGH intensity statin dose unless contraindicated. You will be required to document reason for non-treatment if statin daily dose does not meet guidelines. HIGH DOSE STATIN THERAPY DAILY Atorvastatin > than or = to 40 mg Rosuvastatin > than or = to 20 mg Amlodipine + Atorvastatin > than or = to 2.5/40 mg Ezetimibe + Simvastatin 10/80 mg Simvastatin 80mg Discharge Plan Admission Admit Date/Time: 01/07/25 18:26 Primary Reason for Your Visit: Post op hematoma with surgical I&D. S/P lumbar laminectomy Attending Provider: Howard Siddiqui Primary Care Provider: Meme Keith Consulting Providers: Amy Oliva Instructions Additional Instructions / Restrictions: Prescriptions for Tylenol, Keflex and Bactrim sent to [facility] per Dr. Siddiqui. Take Keflex 3x/daily until gone, Bactrim twice daily until gone. Tylenol every 6 hrs until gone. Keep Tegaderm and gauze clean and dry. If Tegaderm is intact, okay to shower. Instructed on antibacterial soap and water to incision site. After 5 days remove Tegaderm and gauze and cover with a Band-Aid. Replace Band-Aid daily thereafter Reviewed signs and symptoms of infection and to seek evaluation for any pain to the incision site, redness, streaking, drainage, fever, chills or other concerns. Keep ortho appt as scheduled in 1 week, contact office for any changes or concerns. Discharge Orders/Prescriptions Prescriptions: New acetaminophen 500 mg Tablet 500 mg PO Q6H Qty: 30 0RF cephalexin 500 mg capsule 500 mg PO Q8H Qty: 20 0RF sulfamethoxazole-trimethoprim [Bactrim] 400-80 mg tablet 2 tab PO BID Qty: 30 0RF Continued magnesium 250 mg tablet 500 mg PO DAILY coenzyme Q10 [Co Q-10] 50 mg capsule 100 mg PO DAILY Patient Comments: SUPPLIMENT cholecalciferol (vitamin D3) 50 mcg (2,000 unit) capsule 4,000 unit PO DAILY multivitamin Tablet 1 tab PO DAILY calcium 600 mg capsule 1,200 mg PO DAILY sennosides-docusate sodium [Stimulant Laxative Plus] 8.6-50 mg Tablet 2 tab PO BID PRN (Reason: constipation) Qty: 14 0RF rosuvastatin 10 mg tablet 10 mg PO QDAY Qty: 90 3RF methocarbamol 500 mg tablet 750 mg PO TID PRN (Reason: pain/spasms) Qty: 30 0RF tramadol 50 mg tablet 50 mg PO Q6H PRN (Reason: pain) Qty: 20 0RF Held aspirin [Adult Low Dose Aspirin] 81 mg tablet,delayed release (DR/EC) 81 mg PO DAILY Hold Instructions: Resume on 01/10/25. Referrals / Follow Up: Meme Keith MD [Primary Care Provider, Internal Medicine] Disposition Disposition (needs filled in before D/C Order can be placed): Home, Self Care
[2025-01-09 14:16] VITALS: BP 149/90; PULSE 77; RESP 16; TEMP 36.5; O2SAT 96
--- NOTE | 2025-01-09 15:02 | NURSING ---
Emilee MEZA notifying Dwight Morrison to clarify discharge instructions as information is in discharge summary but not instructional piece.
--- NOTE | 2025-01-09 15:23 | CASEMGMT ---
DERRICK CHONG NOTE: Discharge order is in. DERRICK CHONG to room. Pt resting in bed. Pt denies having any discharge concerns or needs. His is here @ [facility] and will be taking him home. He is aware Rx's have been sent to [facility] and states they can pick them up today. Pt states he has an appt w/Dr Siddiqui on 01/16 @ 4475 that he will be going to. Cristopher RUBIN RN, CM
== END 2025-01-09 15:29 | disposition home or self-care (01) | DRG 920 ==
LOC: ED 14:28 → SDC 14:57 → ACINP 14:58 → SDC 18:25 → MS3 18:30
PROVIDERS: Student in an Organized Health Care Education/Training Program; Admitting Provider Orthopaedic Surgery Orthopaedic Surgery of the Spine; Emergency Provider Emergency Medicine; PCP Internal Medicine; Visit Provider Orthopaedic Surgery Orthopaedic Surgery of the Spine
DX: G97.61 Postprocedural hematoma of a nervous system organ or structure following a nervous system procedure (principal); L76.32 Postprocedural hematoma of skin and subcutaneous tissue following other procedure; C20 Malignant neoplasm of rectum; G83.4 Cauda equina syndrome; E78.5 Hyperlipidemia, unspecified; K21.9 Gastro-esophageal reflux disease without esophagitis; G44.219 Episodic tension-type headache, not intractable; I10 Essential (primary) hypertension; I73.9 Peripheral vascular disease, unspecified; Z93.2 Ileostomy status; I25.2 Old myocardial infarction; I25.10 Atherosclerotic heart disease of native coronary artery without angina pectoris; W19.XXXA Unspecified fall, initial encounter; M54.9 Dorsalgia, unspecified; R33.9 Retention of urine, unspecified; Y83.8 Other surgical procedures as the cause of abnormal reaction of the patient, or of later complication, without mention of misadventure at the time of the procedure; R29.898 Other symptoms and signs involving the musculoskeletal system; G89.29 Other chronic pain; Z95.1 Presence of aortocoronary bypass graft; Z93.3 Colostomy status; Z79.82 Long term (current) use of aspirin; Z79.899 Other long term (current) drug therapy; Z86.711 Personal history of pulmonary embolism; Z86.718 Personal history of other venous thrombosis and embolism; Z87.891 Personal history of nicotine dependence; Z85.46 Personal history of malignant neoplasm of prostate; Z98.890 Other specified postprocedural states
CPT/HCPCS: 72158; 80048; 81001; 85025; 85652; 86140; 87070; 87075; 87205; 97162; 97165; 99285; A9575; A4216; J2405